=== PATIENT | male | born 1955 | race Caucasian/White ===

== ENCOUNTER 2024-04-11 14:11 | Emergency (ER) | payer MEDICARE, SELFPAY ==
--- NOTE | ~2024-04-11 | XR_ITS ---
EXAMINATION: XR chest 1V portable 04/11/2024 15:42 INDICATION: Fever and cough PROCEDURE: AP portable chest COMPARISON: No prior studies for comparison. FINDINGS: The lungs are clear. The cardiomediastinal silhouette is within normal limits. There are no pleural effusions. There is no pneumothorax suspected. Elevated right diaphragm. IMPRESSION: 1: NO ACUTE CARDIOPULMONARY DISEASE. Reviewed, dictated and finalized at location B.
--- NOTE | ~2024-04-11 | CT_ITS ---
[facility] DATE: 04/11/2024 16:17 INDICATION: low back pain, fever . TECHNIQUE: Computed tomography (CT) of the chest, abdomen, and pelvis and thoracic and lumbar spine w as performed with 100 mL Omnipaque-350 intravenous contrast. Automated exposure control and iterative reconstruction technique were employed. The dose-length product was 594.76 mGy-cm. COMPARISON: None FINDINGS: CHEST: Thoracic aorta: No significant dilation. No dissection. Mild arch calcification. Lung parenchyma and airways: Granulomatous calcifications. Dependent scarring/atelectasis. Lungs and airways are otherwise clear. Thoracic inlet, axillae and chest wall: No thyroid or soft tissue mass. No axillary lymphadenopathy. Mediastinum: No mass or lymphadenopathy. Calcified lymph nodes. Heart and pericardium: Normal heart size. No pericardial effusion. Coronary artery calcifications: Mild. Pleura: No effusion or mass. Thoracic bones: No acute osseous finding in the chest. ABDOMEN/PELVIS: Liver: Normal. Biliary/Gallbladder: Gallbladder is normal. No bile duct dilation. Pancreas: No mass or duct dilation. Spleen: Normal. Adrenals:No mass. Kidneys: No suspicious mass, obstructing stone, or hydronephrosis. Simple left midpole cyst. Bilatera l subcentimeter hypodensities, too small to characterize but most likely represent cysts. GI tract: No small or large bowel dilation. Normal appendix. Mesentery/Peritoneum: No ascites, mass, or free air. Retroperitoneum: No mass Atherosclerotic abdominal aortic and/or arterial calcifications. Pelvis: Pelvic organs are within normal limits Soft Tissues: Soft tissues and body wall unremarkable. Abdominopelvic bones: No acute osseous finding in the abdomen/pelvis. THORACIC SPINE: Trace anterolisthesis at T10-11. Vertebral body heights preserved. Multilevel mild disc space narrowi ng and marginal osteophytosis. Multilevel mild and moderate degrees of facet sclerosis and hypertroph y. No severe central canal or neural foraminal narrowing. LUMBAR SPINE: Moderate scoliosis. 5 nonrib-bearing lumbar-type vertebral bodies. Pedicles intact. Trace multilevel listheses. No pars defect. Multilevel moderate disc space narrowing and marginal osteophytosis. Sever e left neural foraminal narrowing at L3-4. Severe bilateral neural foraminal narrowing at L5-S1. Mode rate and severe lower lumbar facet sclerosis and hypertrophy. No severe central canal narrowing. IMPRESSION: No acute process detected in the chest, abdomen, or pelvis. No acute fracture or traumatic malalignment detected in the thoracic or lumbar spine. Moderate lumbar scoliosis. Multilevel mild thoracic and moderate lumbar degenerative disc disease. Mu ltilevel severe lumbar neural foraminal narrowing. Multilevel thoracic and lumbar facet arthropathy. Reviewed, dictated and finalized at location K. IMPRESSION: No acute process detected in the chest, abdomen, or pelvis. No acute fracture or traumatic malalignment detected in the thoracic or lumbar spine. Moderate lumbar scoliosis. Multilevel mild thoracic and moderate lumbar degener ative disc disease. Multilevel severe lumbar neural foraminal narrowing. Multil evel thoracic and lumbar facet arthropathy.
[2024-04-11 14:22] VITALS: BP 129/63; PULSE 103; RESP 19; TEMP 39.1; O2SAT 98
--- NOTE | 2024-04-11 14:57 | ED.BACK ---
HPI - Back Pain/Injury General Chief Complaint: Back Pain/Injury Stated Complaint: lower back and leg pain Time Seen by Provider: 04/11/24 14:34 Source: patient Mode of arrival: ambulatory Limitations: no limitations History of Present Illness HPI Narrative: This is a 68-year-old male who presents to the ED with chief complaint of lower back pain radiating into bilateral thighs for the past couple of months and worse today. Patient reports that the pain radiates from the belt line in the lower back down into the lateral and anterior thighs. States that he had an injury several months ago to his back but is unsure if this precipitated his pain. Endorses some general fatigue over the last couple days but no recorded fevers or nausea or vomiting. He also notes that he has been dealing with a cough and sinus infection for the past couple weeks as well. Denies bowel or bladder dysfunction or incontinence. Denies lower extremity numbness. Endorses a right foot drop that has been going on for several months. Denies chest pain, shortness of breath, headache, abdominal pain. Related Data Allergies Allergy/AdvReac Type Severity Reaction Status Date / Time No Known Allergies Allergy Verified 04/11/24 14:28 Review of Systems Review of Systems: All systems as dictated in HPI Exam Narrative: GENERAL: Well-appearing, well-nourished, and in no acute distress. HEAD: Normocephalic, atraumatic. EYES: PERRLA and EOMI. ENT: Nares clear, no rhinorrhea or epistaxis. Mucous membranes moist. Oropharynx without tonsillar hypertrophy exudate or other lesions. NECK: Supple. No adenopathy or masses. CHEST: No respiratory distress. Clear to auscultation. No wheezes rales or rhonchi HEART: Regular rate and rhythm. No murmur heard. Normal peripheral pulses. ABDOMEN: Soft, nontender, nondistended, normal active bowel sounds. MSK: Normal range of motion. No edema. 5/5 sensation throughout the lower extremities. 4-5 strength of the EHL on the right. 5/5 on the left. SKIN: Warm, dry, no rash. NEURO: Alert and oriented x4. No focal deficits. PSYCH: Normal mood and affect. Course Vital Signs Vital signs: Vital Signs Temperature 102.4 F H 04/11/24 14:22 Pulse Rate 103 H 04/11/24 14:22 Respiratory Rate 19 05/28/24 14:22 Blood Pressure 129/63 04/11/24 14:22 Pulse Oximetry 98 04/11/24 14:22 Oxygen Delivery Room Air 04/11/24 14:22 Temperature 102.4 F H 04/11/24 14:22 Pulse Rate 85 04/11/24 16:15 Respiratory Rate 18 04/11/24 16:15 Blood Pressure 136/77 04/11/24 16:15 Pulse Oximetry 95 04/11/24 16:15 Oxygen Delivery Room Air 04/11/24 14:22 MDM - Back Pain/Injury MDM Narrative Medical decision making narrative: This is a 68-year-old male who presents to the ED with chief complaint of bilateral lower back pain acute on chronic. Radiates to bilateral lower legs. Vitals show fever of 102? F. Very mildly tachycardic. Hemodynamically stable. Lab work shows mildly elevated white count of 11.5. CMP unremarkable. CRP very slightly elevated at 1.6. UA is remarkable only for high specific gravity indicating dehydration but no infection. Viral swabs show positive COVID test. Feel that the reason he is febrile today is most likely due to COVID. Did order CT imaging to rule out acute infection in the abdomen or spine, although he is low risk for spinal infection. Chest x-ray shows no acute findings. CT Chest abdomen pelvis with con: IMPRESSION: No acute process detected in the chest, abdomen, or pelvis. No acute fracture or traumatic malalignment detected in the thoracic or lumbar spine. Moderate lumbar scoliosis. Multilevel mild thoracic and moderate lumbar degenerative disc disease. Multilevel severe lumbar neural foraminal narrowing. Multilevel thoracic and lumbar facet arthropathy.. Patient has diffuse arthritic changes throughout the spine which is consistent with his presentation. Suspect trey
[2024-04-11] MEDS: MORPHINE SULFATE (*CRX) 4 MG/ML INJ IV PUSH (15:10)
[2024-04-11] MEDS: SODIUM CHLORIDE 0.9% IV 1,000 ML 999 ML IV CONT (15:11)
[2024-04-11 15:22] LABS: Basophils Percent Auto 0.3 % (0.2-1.2); Eosinophils Absolute Auto 0.1 K/mm3 (0-0.3); Eosinophils Percent Auto 0.7 % (0-4.4); Hematocrit 43.9 % (42.0-52.0); Hemoglobin 14.9 g/dL (14.0-18.0); Immature Granulocyte Absolute 0.03 K/mm3 (0.00-0.031); Immature Granulocyte Percent A 0.3 % (0-0.5); Mean Corpuscular HGB Conc 33.9 g/dl (32-36); Mean Corpuscular Hemoglobin 31.7 pg (26-34); Mean Corpuscular Volume 93.4 fl (80-100); Mean Platelet Volume 10.1 fl (7.4-10.4); Monocytes Absolute Auto 1.1 K/mm3 (0.1-0.6); Monocytes Percent Auto 9.8 % (2.6-8.5); Neutrophils Absolute Auto 9.4 K/mm3 (1.3-6.7); Neutrophils Percent Auto 81.9 % (45.5-73.1); Platelet Count Result 185 k/mm3 (150-375); White Blood Count 11.5 K/mm3 (4.5-10.0)
[2024-04-11] MEDS: ONDANSETRON INJ 4 MG/2 ML VIAL IV PUSH (15:24)
[2024-04-11 15:33] LABS: Alanine Aminotransferase 40 U/L (6-50); Albumin Level 4.8 g/dL (3.5-5.1); Alkaline Phosphatase 74 U/L (38-126); Anion Gap 9 mmol/L (4-12); Aspartate Amino Transferase 41 U/L (17-59); Bilirubin,Total 1.1 mg/dL (0.2-1.3); Blood Urea Nitrogen 18 mg/dL (9-20); Calcium 9.5 mg/dL (8.4-10.2); Carbon Dioxide 24 mmol/L (22-30); Chloride 103 mmol/L (98-107); Estimated CRCL calculation 80 ml/min; Estimated Glomerular Filt Rate > 60; Glucose 128 mg/dL (65-110); Potassium 3.9 mmol/L (3.4-5.0); Sodium 136 mmol/L (137-145)
[2024-04-11 15:34] LABS: Lactic Acid Reflex 1.5 mmol/L (0.7-2.0)
[2024-04-11 16:03] LABS: CRP 1.6 mg/dL (<1.0); Influenza A QL RT-PCR Negative (Negative); Influenza B QL RT-PCR Negative (Negative); RSV RNA, RT-PCR Negative (Negative); SARS-CoV-2 RNA PCR Positive (Negative)
[2024-04-11 16:15] VITALS: BP 136/77; PULSE 85; RESP 18; O2SAT 95
[2024-04-11 16:38] LABS: Appearance Urine Clear (Clear); Bilirubin Urine Negative (Negative); Blood Urine Negative (Negative); Color Urine Yellow (Yellow); Glucose Urine UA Negative (Negative); Ketones Urine Negative (Negative); Leukocyte Esterase Ur Negative LEU/UL (Negative); Nitrate Urine Negative (Negative); Protein Urine Negative (Negative); Urobilinogen Urine 0.2 mg/dL (<2.0); pH Urine 5.5 (5.0-9.0)
[2024-04-11 16:41] LABS: Add Urine Microscopic? NO; Specific Grav Ur 1.039 (1.001-1.035)
== END 2024-04-11 17:19 | disposition home or self-care (01) ==
PROVIDERS: Emergency Provider Physician Assistant
DX: M54.16 Radiculopathy, lumbar region (principal); U07.1 COVID-19
CPT/HCPCS: 36415; 71045; 71260; 72129; 72132; 74177; 80053; 81003; 83605; 85025; 86140; 87637; 96361; 96374; 96375; 99284; J2270; J2405; J7030; Q9967

== ENCOUNTER 2024-07-22 22:27 | Observation (INO) | payer MEDICARE, SELFPAY ==
--- NOTE | ~2024-07-22 | CT_ITS ---
CT ANGIOGRAM NECK AND HEAD History: Garbled speech, vertigo, TIA. Technique: Serial spiral axial images through the head and neck were obtained during arterial phase I V injection of 100 cc of Omnipaque 350. 3-D postprocessing and MIP images were then reconstructed on the remote workstation. Dose reduction technique was used on this scan by utilizing automated exposur e control and iterative reconstruction technique. The dose-length product (DLP) was 1002.58 mGy-cm. CTA neck findings: Bilateral vertebral arteries are patent. Bilateral common carotid, internal carot id, and external carotid arteries are patent. No large vessel occlusion or stenosis. No aneurysm. The proximal right internal carotid artery demonstrates 0% stenosis relative to the normal distal artery lumen diameter. The proximal left internal carotid artery demonstrates 0% stenosis relative to the n ormal distal artery lumen diameter. CTA head findings: Distal vertebral arteries, basilar artery, and posterior cerebral arteries are pat ent. Distal internal carotid arteries, middle cerebral arteries, and anterior cerebral arteries are p atent. No large vessel occlusion or stenosis. No definite aneurysm seen. Impression: No large vessel occlusion or stenosis. Reviewed, dictated and finalized at location M. Impression: No large vessel occlusion or stenosis.
--- NOTE | ~2024-07-22 | CT_ITS ---
Non-contrast Head CT History: Dizziness Technique: Axial non-contrast imaging of the brain was performed. Dose reduction technique was used on this scan by utilizing automated exposure control and iterative reconstruction technique. The dose -length product (DLP) was 605.33 mGy-cm. Findings: There is no evidence of intracranial hemorrhage, mass lesion, or acute infarct. Brain par enchyma appears normal. The ventricles and subarachnoid spaces are normal in size. The calvarium ap pears normal. The visualized paranasal sinuses and mastoid air cells are clear. Impression: No significant abnormality seen. Reviewed, dictated and finalized at location . Impression: No significant abnormality seen.
--- NOTE | 2024-07-22 22:30 | ECG_ITS ---
Test Date: 2024-07-22 22:48:16 Measurements Intervals [place] Rate: 65 P: 8 AL: 201 QRS: -48 QRSD: 98 T: 26 QT: 406 QTc: 423 Interpretive Statements SINUS RHYTHM BORDERLINE AV CONDUCTION DELAY LEFT ANTERIOR FASCICULAR BLOCK BASELINE ARTIFACT- I, III, AVR, AVL ABNORMAL ECG No previous ECG available for comparison Electronically Signed On 07-23-2024 08:39:33 CDT by Aneudy Mott D.O.
[2024-07-22 22:33] VITALS: BP 144/85; PULSE 70; RESP 20; TEMP 36.4; O2SAT 97
[2024-07-22 23:11] LABS: Alanine Aminotransferase 66 U/L (6-50); Albumin Level 4.7 g/dL (3.5-5.1); Alkaline Phosphatase 85 U/L (38-126); Anion Gap 13 mmol/L (4-12); Aspartate Amino Transferase 61 U/L (17-59); Bilirubin,Total 0.6 mg/dL (0.2-1.3); Blood Urea Nitrogen 17 mg/dL (9-20); Calcium 9.4 mg/dL (8.4-10.2); Carbon Dioxide 23 mmol/L (22-30); Chloride 104 mmol/L (98-107); Estimated CRCL calculation 80 ml/min; Estimated Glomerular Filt Rate > 60; Glucose 183 mg/dL (65-110); Potassium 4.2 mmol/L (3.4-5.0); Sodium 140 mmol/L (137-145)
[2024-07-22 23:19] LABS: Basophils Percent Auto 0.3 % (0.2-1.2); Eosinophils Absolute Auto 0.1 K/mm3 (0-0.3); Eosinophils Percent Auto 0.8 % (0-4.4); Hematocrit 46.7 % (42.0-52.0); Hemoglobin 15.8 g/dL (14.0-18.0); Immature Granulocyte Absolute 0.03 K/mm3 (0.00-0.031); Immature Granulocyte Percent A 0.3 % (0-0.5); Lymphocytes Absolute Auto 2.29 K/mm3 (0.9-3.2); Lymphocytes Percent Auto 22.2 % (18.3-44.2); Mean Corpuscular HGB Conc 33.8 g/dl (32-36); Mean Corpuscular Hemoglobin 31.7 pg (26-34); Mean Corpuscular Volume 93.6 fl (80-100); Mean Platelet Volume 10.3 fl (7.4-10.4); Monocytes Absolute Auto 0.9 K/mm3 (0.1-0.6); Monocytes Percent Auto 8.5 % (2.6-8.5); Neutrophils Percent Auto 67.9 % (45.5-73.1); Platelet Count Result 201 k/mm3 (150-375); Red Blood Count 4.99 M/mm3 (4.6-6.20); Red Cell Distribution Width 12.3 % (11.5-14.5); White Blood Count 10.3 K/mm3 (4.5-10.0)
[2024-07-22 23:29] LABS: INR 1.1
[2024-07-22 23:30] LABS: Partial Thromboplastin Time 24.9 Seconds (22.3-36.8)
[2024-07-23] VITALS (9 sets, daily range): BP systolic 125–156; BP diastolic 64–91; PULSE 63–74; RESP 14–20; TEMP 36.4–36.6; O2SAT 96–99; BMI 27.3
[2024-07-23 00:14] LABS: Add Urine Microscopic? YES; Appearance Urine Cloudy (Clear); Bacteria Urine None Seen /hpf; Bilirubin Urine Negative (Negative); Blood Urine Negative (Negative); Color Urine Dark Yellow (Yellow); Glucose Urine UA Negative (Negative); Ketones Urine Trace mg/dL (Negative); Leukocyte Esterase Ur Negative LEU/UL (Negative); Need Manual Microscopic Reviewed; Nitrate Urine Negative (Negative); Non Pathogenic Casts 0-2; Protein Urine Negative (Negative); Specific Grav Ur 1.027 (1.001-1.035); Squamous Epithelial Cell Urine None Seen /hpf (Few); WBC Urine 0-5 /hpf (0-3)
--- NOTE | 2024-07-23 04:04 | ED.DIZZY ---
HPI - Dizziness General Chief Complaint: Dizziness Stated Complaint: Dizzy, n/v, feel different. Time Seen by Provider: 07/23/24 03:00 History of Present Illness HPI Narrative: Patient is a 68-year-old male presenting with vertigo and confusion. Patient states that he was working outside today and was feeling fine until this afternoon when he started to feel a bit off. He took a nap and when he woke up around 9:00 p.m. he had garbled speech, vertigo, and he felt off balance. His is with him and states this lasted for 2-3 minutes. The symptoms had improved by the time he got to the ER. No focal numbness or weakness. No facial droop. Currently, he denies any complaints. Denies infectious symptoms recently. He complains of chronic pain but no new pain. Related Data Home Medications Medication Instructions Recorded Confirmed amlodipine 5 mg tablet 5 mg PO DAILY 07/23/24 07/23/24 atorvastatin 40 mg tablet 40 mg PO DAILY 07/23/24 07/23/24 gabapentin 300 mg capsule 300 mg PO TID 07/23/24 07/23/24 hydrocodone 5 mg-acetaminophen 325 1 tablet PO Q8H 07/23/24 07/23/24 mg tablet metformin 500 mg tablet 500 mg PO BID 07/23/24 07/23/24 Allergies Allergy/AdvReac Type Severity Reaction Status Date / Time No Known Allergies Allergy Verified 07/22/24 22:38 Review of Systems Review of Systems: All systems reviewed & are unremarkable except as noted in HPI and below PMFSH Social History Social History Smoking status: Former smoker Tobacco type: cigarettes Alcohol intake: former Substance use: former Substance use type: crack/cocaine, 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 EYES: PERRLA and EOMI. ENT: Grossly unremarkable NECK: Supple. CHEST: Clear to auscultation. No respiratory distress. HEART: Regular rate and rhythm ABDOMEN: Soft, nontender, nondistended EXTREMITIES: Normal range of motion SKIN: Warm, dry, no rash. NEURO: No focal deficits. Alert and oriented x3. 5/5 strength in all extremities, no sensory deficits, no aphasia or dysarthria, no pronator drift, [id number] intact PSYCH: Normal mood and affect. Course Vital Signs Vital signs: Vital Signs Temperature 97.6 F 07/22/24 22:33 Pulse Rate 70 07/22/24 22:33 Respiratory Rate 20 07/22/24 22:33 Blood Pressure 144/85 H 07/22/24 22:33 Pulse Oximetry 97 07/22/24 22:33 Oxygen Delivery Room Air 07/22/24 22:33 Temperature 97.8 F 07/23/24 21:25 Pulse Rate 55 L 07/24/24 04:00 Respiratory Rate 18 07/23/24 21:25 Blood Pressure 128/64 07/23/24 21:25 Pulse Oximetry 96 07/23/24 21:25 Oxygen Delivery Room Air 07/23/24 20:00 MDM - Dizziness MDM Narrative Medical decision making narrative: 68-year-old male presenting with an episode of garbled speech, vertigo, loss of balance. Vitals are stable. Exam remarkable for the above. CT brain shows no acute abnormalities. Blood work without significant abnormality. CTA has been ordered. Patient will require admission for TIA workup. States that he is supposed to be taking daily aspirin but he is unsure about his other medications. CTA without acute abnormalities. I spoke with neurology who agrees with admission for TIA workup. Patient is agreeable with this plan. I spoke with medicine was accepted him for admission. Differential Diagnosis Differential diagnosis: Likely cerebrovascular accident, transient cerebral ischem
--- NOTE | 2024-07-23 08:38 | PC.NURSE ---
This patient, Edilberto Hawley, was admitted to Medical Room 245-. Patient/family oriented to hospital policies and general routines including ID bracelet, bed and alarms, visiting hours, pain management, procedures, bathroom and other care routines, personal items, smoking policy, room service/diet, and visiting hours. Information on how to activate the Rapid Response Team has been discussed. Patient/Family are encouraged to report perceived risks to care and to ask questions if they do not understand what they are told or what they should do.
--- NOTE | 2024-07-23 08:44 | PM.IMHP ---
H&P: HPI History of Present Illness Date/Time: 07/23/24 08:44 Chief Complaint: vertigo /speech abnormality /ataxia Narrative: Patient is a 68-year-old male presenting with vertigo and confusion. Patient states that he was working outside today and was feeling fine until this afternoon when he started to feel a bit off. He took a nap and when he woke up around 9:00 p.m. he had garbled speech, vertigo, and he felt off balance. His is with him and states this lasted for 2-3 minutes. The symptoms had improved by the time he got to the ER. No focal numbness or weakness. No facial droop. Currently, he denies any complaints. Denies infectious symptoms recently. He complains of chronic pain but no new pain. Review of Systems Review of Systems: - CONSTITUTIONAL: Denies weight loss, fever and chills. - HEENT: Denies changes in vision and hearing - RESPIRATORY: Denies SOB and cough. - CV: Denies palpitations and CP. - GI: Denies abdominal pain, nausea, vomiting and diarrhea. - : Denies dysuria and urinary frequency. - MSK: Denies myalgia and joint pain. - SKIN: Denies rash and pruritus. - NEUROLOGICAL: Denies headache and syncope. see HPI - PSYCHIATRIC: Denies recent changes in mood. Denies anxiety and depression. [facility] Social History Social History Smoking status: Former smoker Tobacco type: cigarettes Alcohol intake: former Substance use: former Substance use type: crack/cocaine, 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 use: 2002 Do You Feel Safe in your Home?: Yes Lack of Transportation: No Lack of Food: Never True Current Housing: I Have Housing Concerned About Future Housing: No Difficulty Paying Gas/Electric Bills: No Difficulty Paying for Meds: No Currently Unemployed: No Education: Decline to Answer Difficulty w/ Childcare or Family Care: No Spiritual care concerns: No Meds Home Medications and Allergies Home Medications Medication Instructions Recorded Confirmed Type Unable to Obtain Home Medications 07/23/24 07/23/24 History Allergies Allergy/AdvReac Type Severity Reaction Status Date / Time No Known Allergies Allergy Verified 07/22/24 22:38 Vital Signs Vital Signs - 24 hr 07/22/24 22:33 07/23/24 01:33 07/23/24 04:57 Temperature 97.6 F Pulse Rate 70 64 64 Respiratory Rate 20 15 15 Blood Pressure 144/85 H 138/86 138/74 Pulse Oximetry 97 97 97 Oxygen Delivery Room Air 07/23/24 07:54 Temperature Pulse Rate 67 Respiratory Rate 14 Blood Pressure 154/89 H Pulse Oximetry 97 Oxygen Delivery Exam Narrative: GENERAL: Nontoxic, no acute distress, pleasant cooperative HEAD: Normocephalic, atraumatic. EYES: PERRLA and EOMI. CHEST: Clear to auscultation. No respiratory distress. HEART: Regular rate and rhythm ABDOMEN: Soft, nontender, nondistended EXTREMITIES: Normal range of motion SKIN: Warm, dry, no rash. NEURO: No focal deficits. Alert and oriented x3. 5/5 strength in all extremities, no sensory deficits, no aphasia or dysarthria, no pronator drift, [id number] intact PSYCH: Normal mood and affect. H&P: Results Labs Labs: Short CBC 07/22/24 Range/Units 22:54 WBC 10.3 H (4.5-10.0) K/mm3 Hgb 15.8 (14.0-18.0) g/dL Hct 46.7 (42.0-52.0) % Plt Count 201 (150-375) k/mm3 BMP 07/22/24 22:54 Sodium 140 Potassium 4.2 Chloride 104 Carbon Dioxide 23 BUN 17 Creatinine 0.80 Glucose 183 H Calcium 9.4 Liver Function 07/22/24 Range/Units 22:54 Total Bilirubin 0.6 (0.2-1.3) mg/dL AST 61 H (17-59) U/L ALT 66 H (6-50) U/L Alkaline Phosphatase 85 (38-126) U/L Albumin 4.7 (3.5-5.1) g/dL Urine 07/22/24 Range/Units 23:49 Urine Color Dark yellow (Yellow) Urine Appearance Cloudy H (Clear) Urine pH 5.0 (5.0-9.0) Ur Specific [place] 1.027 (1.001-1.035) Urine Protein Negat
--- NOTE | 2024-07-23 08:54 | PC.NURSE ---
RN did admission with the pt and was unable to obtain medication list because he didn't know what he took pt states my will be here later she knows what I take.
[2024-07-23] MEDS: ASPIRIN 81 MG ENTERIC TABLET PO (11:46)
[2024-07-23 12:54] LABS: Glucose Point of Care 120 mg/dl (65-105)
--- NOTE | 2024-07-23 14:36 | WPDNEURCNPN ---
Assessment and Plan Assessment and plan (1) TIA (transient ischemic attack): Code(s): G45.9 - Transient cerebral ischemic attack, unspecified Status: Acute Plan Fairly nonfocal neurological examination at this particular time, has been admitted because of the possibility of TIA, CTA is negative, echocardiogram will be obtained to rule out the possibility of intracardiac pathology patient is already receiving aspirin 81mg daily will be continued as such till the echocardiogram is done. Consult date: 07/23/24 HPI: Edilberto Hawley is a 68 year old male Admitted to the hospital for the complaints of feeling different and dizzy reportedly he was working outside and was feeling fine up until the afternoon when he started to feel a bit of he took a nap and when he woke up around 9:00 p.m. he noted his speech was garbled he was feeling vertiginous and was off the balance the whole episode lasted for 2 to 3 minutes. And symptomatology improved by the time he came to the emergency room. There was no history of focal weakness or numbness of 1 or other upper or lower extremity and also no history of facial droop. He is not allergic to any medication. Initial exam in the emergency room revealed him to have no focal neurological deficit, his vital signs were normal CBC was normal BMP was normal except blood sugar being 183 and ureter was normal too, head neck CTA revealed no involvement of the major vessels and the CT scan of the brain normal. Review of Systems Review of Systems: All systems reviewed & are unremarkable except as noted in HPI and below [facility] Social History Social History Smoking status: Former smoker Tobacco type: cigarettes Alcohol intake: former Substance use: former Substance use type: crack/cocaine, 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 use: 2002 Do You Feel Safe in your Home?: Yes Lack of Transportation: No Lack of Food: Never True Current Housing: I Have Housing Concerned About Future Housing: No Difficulty Paying Gas/Electric Bills: No Difficulty Paying for Meds: No Currently Unemployed: No Education: Decline to Answer Difficulty w/ Childcare or Family Care: No Spiritual care concerns: No Meds Home Medications and Allergies Home Medications Medication Instructions Recorded Confirmed Type Unable to Obtain Home Medications 07/23/24 07/23/24 History Allergies Allergy/AdvReac Type Severity Reaction Status Date / Time No Known Allergies Allergy Verified 09/07/24 22:38 Vital Signs Vital Signs - 24 hr 07/22/24 22:33 07/23/24 01:33 07/23/24 04:57 Temperature 36.4 C Pulse Rate 70 64 64 Respiratory Rate 20 15 15 Blood Pressure 144/85 H 138/86 138/74 Pulse Oximetry 97 97 97 Oxygen Delivery Room Air 07/23/24 07:54 07/23/24 10:34 07/23/24 08:30 Temperature 36.4 C L Pulse Rate 67 63 Respiratory Rate 14 20 Blood Pressure 154/89 H 125/91 H Pulse Oximetry 97 97 Oxygen Delivery Room Air Exam Narrative: Exam today revealed him to be awake alert cooperative in no obvious acute distress, extremely verbal and giving the full account of his illness and family history without any evidence of dysphagia dysarthria or dysphonia. Head normocephalic with no bruit, ear nose throat examination normal, neck supple with no cervical bruit no thyromegaly no lymphadenopathy, heart regular with no murmur, lungs clear to auscultation, abdomen soft nontender, neurological examination revealed him to be awake alert oriented x3, his speech nor dysphasic not dysarthric not dysphonic, pupils round regular reacting to light equally, feels the vision full, extraocular movements full with no nystagmus, facial sensation intact, face symmetrical, tongue midline uvula midline and motor examination revealed him to have no drift of 1 or other side with normal tone in both upper and lower extremities deep tendon reflexes symmetri
[2024-07-23 17:50] LABS: Glucose Point of Care 108 mg/dl (65-105)
[2024-07-24] VITALS: PULSE 60
[2024-07-24 04:00] VITALS: PULSE 55
--- NOTE | 2024-07-24 05:31 | PC.NURSE ---
Patient alert and oriented at bedside. Patient agitated and wishing to leave, patient took off his heart monitor and stated that he did not want his blood drawn and that he did not get his pain medication. I attempted to speak with patient and explained that I could call the Doctor about his pain but patient stated no he just wanted to leave. I attempted to talk with patient about reason for blood work and that we could call the MD but patient stated no he was leaving. Dr Stinson aware of patient wanting to leave. Patient signed AMA paper work and IV was removed. Patient encouraged to follow up with his MD.
--- NOTE | 2024-07-24 05:37 | PC.NURSE ---
This RN was called to the pt's room by the laborer [employer]. Pt stating he has had an IV in for 2.5 years and that he has had blood drawn from it and stuff put in it. This RN advised the pt that was not an IV and was possibly a central line of some sort. Pt's was adding to the pt's comments and encouraging his behavior. Pt began becoming verbally irritated with RN and Business Performance Advisor stating he want the IV out then. This RN educated the pt that he has to have IV access while in the hospital. Pt's began arguing that he did not need it because it was not being used. Pt then stated he did not want labs drawn and he was leaving. Pt was very axious and ripped the leads for his quality assurance monitor off. CN overheard and printed AMA document. This RN called Dr Stinson and adivsed her of the situation.
--- NOTE | 2024-07-24 08:09 | PM.DS ---
DS: Admitting Diagnosis Discharge Date 07/24/24 Admitting Diagnosis Stroke-like symptoms DS: Discharge Diagnosis Discharge Diagnosis (1) TIA (transient ischemic attack): Code(s): G45.9 - Transient cerebral ischemic attack, unspecified Status: Acute (2) Hypertension: Code(s): I10 - Essential (primary) hypertension Status: Acute (3) Pre-diabetes: Code(s): R73.03 - Prediabetes Status: Acute DS: Summary Hospital Course Hospital Course: Patient is a 68-year-old male presenting with vertigo and confusion. Patient states that he was working outside yesterday and was feeling fine until later afternoon when he started to feel a bit off. He took a nap and when he woke up around 9:00 p.m. he had garbled speech, vertigo, and he felt off balance. His is with him and states this lasted for 2-3 minutes. The symptoms had improved by the time he got to the ER. No focal numbness or weakness. No facial droop. he has chronic pain. in the ED evaluation His vitals were stable. Laboratory workup with WBC of 10.3 hemoglobin 15.8 came panel was unremarkable except for blood sugar 183. Urinalysis with 3-5 RBC otherwise unremarkable. EKG with normal sinus rhythm with nonspecific ST-T changes. CT head without contrast was obtained which was unremarkable. Followed by CTA head and neck which ruled out large vessel occlusion. Neurology has been consulted. Will obtain MRI brain. Continue on aspirin and statin. Check lipid profile and A1c. will also get echocardiogram for TIA workup. Monitor on telemetry . PT OT to see however patient left against medical advise. Hypertension History of TIAs in the past Diabetes supposed to be on medications. Check A1c DVT prophylaxis Lovenox Code status full code Time Spent with Patient Time attestation: Total time spent providing and/or coordinating discharge services: DS: Data Data Completed and Pending Labs on day of discharge: Labs from last 24 hours 07/23/24 07/23/24 07/23/24 17:01 12:50 09:00 POC Capillary Glucose 108 H 120 H Hemoglobin A1c Pending Triglycerides Pending Cholesterol Pending LDL Cholesterol Direct Pending HDL Direct Pending Imaging Radiologist's impression: ITS Impressions Head/Neck CTA 07/23/24 07:06 Impression: No large vessel occlusion or stenosis. Head CT 07/23/24 07:09 Impression: No significant abnormality seen. Discharge Plan Discharge Consulting providers: Lefty Correa Patient Disposition: Left Against Medical Advice Discharge Medications: No Action atorvastatin 40 mg Tablet 40 mg PO DAILY metformin 500 mg Tablet 500 mg PO BID hydrocodone-acetaminophen [[place]] 5-325 mg Tablet 1 tablet PO Q8H amlodipine 5 mg Tablet 5 mg PO DAILY gabapentin 300 mg Capsule 300 mg PO TID Patient Comments: pt states he only takes in the morning Date of admission: 07/23/24 07:46 Primary Care Provider: UNKNOWN,DOCTOR Admitting Provider: Alen Olmedo Attending physician on admission: Alen Olmedo
== END 2024-07-24 05:35 | disposition left against medical advice (07) ==
LOC: ANHED 07-23 03:11 → ANH2MED 07-23 08:24
PROVIDERS: Admitting Provider Internal Medicine; Emergency Provider Emergency Medicine; Visit Provider Internal Medicine
DX: G45.9 Transient cerebral ischemic attack, unspecified (principal); I10 Essential (primary) hypertension; R73.03 Prediabetes; Z87.891 Personal history of nicotine dependence
CPT/HCPCS: 36415; 70450; 70496; 70498; 80053; 80061; 81001; 82948; 83036; 85025; 85610; 85730; 93005; 97161; 99285; A9270; G0378; Q9967

== ENCOUNTER 2024-11-16 06:04 | Emergency (ER) | payer MEDICARE, SELFPAY ==
--- NOTE | ~2024-11-16 | XR_ITS ---
XR knee RT min 4V 11/16/2024 08:33 Indication: Right knee injury. Procedure: 4 views right knee Comparison: No prior studies for comparison. Findings: There is an ossific density medial to the femoral condyle consistent with medial collateral injury with avulsion, age indeterminate. Mild osteoarthritis. Moderate joint effusion. No focal lyti c or blastic lesions. Impression: 1: Avulsion fracture medial to the distal aspect of the femur consistent with medial collateral ligam ent injury, age indeterminate. 2: Moderate joint effusion. 3: Mild osteoarthritis. Reviewed, dictated and finalized at location [facility] [employer] Impression: 1: Avulsion fracture medial to the distal aspect of the femur consistent with m edial collateral ligament injury, age indeterminate. 2: Moderate joint effusion. 3: Mild osteoarthritis.
[2024-11-16 06:09] VITALS: BP 133/83; PULSE 61; RESP 18; TEMP 37.1; O2SAT 99
--- NOTE | 2024-11-16 08:49 | ED_ITS ---
HPI - Extremity Injury (Lower) General Chief Complaint: Extremity Injury, Lower Stated Complaint: right knee pain Time Seen by Provider: 11/16/24 08:11 Source: patient Mode of arrival: ambulatory Limitations: no limitations History of Present Illness HPI Narrative: Patient presents with right knee pain. He states he was walking down an incline when it acutely felt like I broke my leg. He has since had difficulty bearing weight. He describes the pain as sharp and intermittently radiating throughout his entire leg. He has chronic knee and leg pain as well as back pain but this felt worse. He states at baseline his primary care physician carlota Roach prescribes him 5 mg tablets of Oxy t.i.d.. He has an appointment next see this provider on Wednesday for a refill. The pain starts superior to the knee and radi ates laterally and medially across the joint as well as inferior to the knee. He denies any paresthesias. He does not believe he is on any anticoagulation. He moves his body a lot for work, bending/crouching and on his knees as well as walking. He has a history of complicated cellulitis as well as multiple musculoskeletal injuries. He had 3 operations on his right ankle for a bone infection including requiring skin graft (the first 2 in [facility] and then one in [place], [place]). Patient [place] but spends time here for work. He already has an appointment to establish with an orthopedic surgeon elsewhere on 12/15/2024. Related Data Home Medications ?Medication ?Instructions ?Recorded ?Confirmed ?Last Taken ?Type amlodipine 5 mg tablet 5 mg PO DAILY 07/23/24 07/23/24 Unknown History atorvastatin 40 mg tablet 40 mg PO DAILY 07/23/24 07/23/24 Unknown History gabapentin 300 mg capsule 300 mg PO TID 07/23/24 07/23/24 Unknown History hydrocodone 5 mg-acetaminophen 325 1 tablet PO Q8H 07/23/24 07/23/24 Unknown History mg tablet metformin 500 mg tablet 500 mg PO BID 07/23/24 07/23/24 Unknown History Allergies Allergy/AdvReac Type Severity Reaction Status Date / Time No Known Allergies Allergy Verified 11/16/24 07:19 [facility] Past Medical History Medical History (Updated 11/17/24 @ 06:41 by Jesica Beltran MD) Osteomyelitis of ankle R Chronic back pain Chronic pain of right lower extremity Chronic pain of right knee History of cellulitis Surgical History Surgical History History of skin graft RLE History of ankle surgery Right x3 ([place] x2; [place] x1) Social History Social History Smoking status: Former smoker Tobacco type: cigarettes Alcohol intake: former Substance use: former Substance use type: crack/cocaine, 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 use: 2002 Do You Feel Safe in your Home?: Yes Lack of Transportation: No Lack of Food: Never True Current Housing: I Have Housing Concerned About Future Housing: No Difficulty Paying Gas/Electric Bills: No Difficulty Paying for Meds: No Currently Unemployed: No Education: Decline to Answer Difficulty w/ Childcare or Family Care: No Additional living arrangements comments: Resides in [facility] near [facility] Occupation/Education: occupation Additional occupation/education comments: works in [employer] Spiritual care concerns: No Exam Narrative: GENERAL: well-nourished, and in no acute distress. HEAD: Normocephalic, atraumatic. EYES: Non injected, non icteric ENT: Nares clear, no rhinorrhea or epistaxis. NECK: Supple. CHEST: Speaking in full sentences. No respiratory distress. HEART: Regular rate and rhythm. . ABDOMEN: Soft, nondistended. EXTREMITIES: Mild tenderness to palpation along medial aspect of distal femur. Patient does have a significant right knee joint effusion without overlying erythema. Compartments are soft and nontender. Bony deformity at the right ankle which patient states is chronic. Overlying well-healing scar tissue. Able to demonstrate extension and flexions at the right knee. SKIN: Warm, dry. Patient has a scar on his right thigh from previous healing skin graft. NEURO: No focal deficits. Alert and oriented x3. PSYCH: Normal mood and affect. Very pleasant. Course Vital Signs Vital signs: Vital Signs Temperature 98.8 F 11/16/24 06:09 Pulse Rate 61 11/16/24 06:09 Respiratory Rate 18 11/16/24 06:09 Blood Pressure 133/83 11/16/24 06:09 Pulse Oximetry 99 11/16/24 06:09 Oxygen Delivery Room Air 11/16/24 06:09 Temperature 98.8 F 11/16/24 06:09 Pulse Rate 61 11/16/24 06:09 Respiratory Rate 18 11/16/24 06:09 Blood Pressure 133/83 11/16/24 06:09 Pulse Oximetry 99 11/16/24 06:09 Oxygen Delivery Room Air 11/16/24 06:09 MDM - Extremity Injury (Lower) MDM Narrative Medical decision making narrative: Patient presents with acute onset right knee pain while walking down an incline. He has a history of chronic knee and leg pain but this was worse. In the emergency department they are afebrile with vital signs within normal alvarez its Imaging showing distal avulsion fracture of the right femur likely secondary to MCL injury. Patient is otherwise neurovascularly intact. Prescription Monitoring Program is reviewed and shows that in June 2024 patient filled 42 tablets of Oxy-325 acetaminophen tablets and in July 2024 filled 60 tablets of [place] -325 mg acetaminophen tablets with no interval fill. Patient discharged home in stable condition after knee immobilizer applied and crutches given. Patient is given analgesic medication in the emergency department and discharged with prescriptions for both [id number] as well as narcotic medications. Did inform on narcotic safety given he is chronically on opiates. Patient is provided referral/contact information for on-call orthopedic surgeon. He does not reside in this area but does work in this area. He states he already has an appointment to establish with a different orthopedic surgeon elsewhere on December 15, 2024 for his other orthopedic injuries/issues. He is provided a disc with his images. Imaging Data Radiologist's impression: Impressions Knee X-Ray 11/16/24 08:49 Impression: 1: Avulsion fracture medial to the distal aspect of the femur consistent with medial collateral ligament injury, age indeterminate. 2: Moderate joint effusion. 3: Mild osteoarthritis. Discharge Plan Discharge Clinical Impression: Acute pain of right knee, Fracture of distal end of femur, Injury of medial collateral ligament of right knee, Effusion of knee joint right, Osteoarthritis of right knee Patient Disposition: Home, Self-Care Condition: Stable Instructions: Antibiotic Form, Crutch Instructions (ED), Osteoarthritis (ED), Swollen Knee Joint (ED), Knee Pain (ED), Opioid Safety (ED), Knee Immobilizer (ED), Avulsion Fracture (ED) Additional Instructions: It is safe to take a maximum of 4000 mg per day acetaminophen, this is typically done as two 500 mg tablets. Check to see if the oxy you currently take already contains acetaminophen (sometimes there are 325mg in each tablet) so that you do not accidentally overdose. If needed, You are being prescribed a short course of additional Oxy that you can use in the interim for breakthrough pain but do not combine the two narcotics you are prescribed. Acetaminophen/Tylenol is also safe to take with NSAIDs (ibuprofen/Motrin) for pain relief. Follow-up with the orthopedic surgeon listed below who or, alternatively, you can see the orthopedic surgeon of your choice either in this area where you work or closer to where you live. You are being provided a disc your images. Return to the emergency department with any new or worsening symptoms. Patient Language: Pakistani Prescriptions: New acetaminophen 500 mg capsule 1,000 mg PO Q6H PRN (Reason: pain) Qty: 30 0RF ibuprofen 600 mg tablet 600 mg PO TID PRN (Reason: pain) Qty: 30 0RF oxycodone 10 mg tablet 10 mg PO Q6H PRN (Reason: pain) Qty: 20 0RF No Action atorvastatin 40 mg Tablet 40 mg PO DAILY metformin 500 mg Tablet 500 mg PO BID hydrocodone-acetaminophen [[place]] 5-325 mg Tablet 1 tablet PO Q8H amlodipine 5 mg Tablet 5 mg PO DAILY gabapentin 300 mg Capsule 300 mg PO TID Patient Comments: pt states he only takes in the morning Follow-up/Referrals: Brandon Ogden MD [Physician] - (Orthopedics) UNKNOWN,DOCTOR [Primary Care Provider] - Stand Alone Forms: Work/School Release IP Time of Disposition: 10:18
[2024-11-16] MEDS: HYDROcodone/acetaminophen (*CRX) 5-325 MG TABLET 1 TAB PO (09:12)
[2024-11-16] MEDS: KETOROLAC 30 MG/ML VIAL (*BKC) 15 MG IM (09:54)
--- OUTSIDE RECORDS SUMMARY | 2024-11-23 00:06 | XMS_ITS | Continuity of Care Document ---
Author Organization [facility] Address [address] [facility] [address] [place] [address] Care Team Providers Care Skip Tracer Name Role Phone Carlos Enrique Obando Primary Care Physician [phone] Encounter Date(s): 04/19/24 - 04/19/24 Family Medicine [facility] [address] [place] [address]- Discharge Disposition: Discharged to Home or Self Care Allergies, Adverse Reactions, Alerts No Known Allergies Immunizations Given and Recorded Vaccine Date Status Refusal Reason influenza virus vaccine, inactivated 08/23/20 Chin rded influenza virus vaccine, inactivated 09/15/18 Give n influenza virus vaccine, inactivated 08/09/17 Chin rded tetanus/diphth/pertuss (Tdap) adult/adol 04/16/17 Recorded Medications Acidophilus Probiotic Blend 1 tab, Oral, Daily, 0 Refill(s), Start Date: 09/12/18 9:46:00 AM CDT Start Date: 09/12/18 Status: Ordered amitriptyline 75 mg oral tablet 1 tab(s), Oral, HS, # 30 tab(s), 0 Refill(s), Start Date: 03/09/23 10:50:00 AM CDT, Pharmacy: [facility], 173, cm, 03/09/23 10:20:00 CDT, Height/Length Measured, 89.5, kg, 03/09/23 10:22:00 CDT, Weight Dosing Start Date: 03/09/23 Stop Date: 04/22/23 Status: Completed amitriptyline 75 mg oral tablet 1 tab(s), Oral, HS, # 90 tab(s), 2 Refill(s), Start Date: 04/22/23 10:25:00 AM CDT, Pharmacy: [facility], 173, cm, 04/09/23 15:48:00 CDT, Height/Length Measured, 87.6, kg, 04/09/23 15:50:00 CDT, Weight Dosing Start Date: 04/22/23 Stop Date: 03/31/24 Status: Completed amitriptyline 75 mg oral tablet 1 tab(s), Oral, HS, 0 Refill(s), Start Date: 05/15/18 10:18:00 PM CDT Start Date: 05/15/18 Stop Date: 03/09/23 Status: Discontinued amitriptyline 75 mg oral tablet tab(s), Oral, HS, 0 Refill(s), Start Date: 05/15/18 11:15:00 PM CDT Start Date: 05/15/18 Stop Date: 09/12/18 Status: Discontinued amLODIPine 10 mg oral tablet 1 tab(s), Oral, Daily, # 30 tab(s), 0 Refill(s), Start Date: 03/31/24 10:44:00 AM CDT Start Date: 03/31/24 Status: Ordered amLODIPine 5 mg oral tablet 1 tab(s), Oral, Daily, # 90 tab(s), 1 Refill(s), Start Date: 03/09/23 10:48:00 AM CDT, Pharmacy: [facility], 173, cm, 03/09/23 10:20:00 CDT, Height/Length Measured, 89.5, kg, 03/09/23 10:22:00 CDT, Weight Dosing Start Date: 03/09/23 Stop Date: 08/27/23 Status: Completed amLODIPine 5 mg oral tablet 1 tab(s), Oral, Daily, # 90 tab(s), 3 Refill(s), Start Date: 08/27/23 8:41:00 AM CDT, Pharmacy: [facility], 173, cm, 04/09/23 15:48:00 CDT, Height/Length Measured, 87.6, kg, 04/09/23 15:50:00 CDT, Weight Dosing Start Date: 08/27/23 Stop Date: 03/31/24 Status: Completed aspirin 81 mg oral delayed release tablet 1 tab(s), Oral, Daily, # 30 tab(s), 0 Refill(s), Start Date: 03/09/23 10:18:00 AM CDT Start Date: 03/09/23 Status: Ordered atorvastatin 20 mg oral tablet 1 tab(s), Oral, Daily, # 30 tab(s), 0 Refill(s), Start Date: 03/31/24 10:45:00 AM CDT Start Date: 03/31/24 Status: Ordered baclofen 10 mg oral tablet 1 tab(s), Oral, TID, # 30 tab(s), 0 Refill(s), Start Date: 03/09/23 10:49:00 AM CDT, Pharmacy: [facility], 173, cm, 03/09/23 10:20:00 CDT, Height/Length Measured, 89.5, kg, 03/09/23 10:22:00 CDT,Weight Dosing Start Date: 03/09/23 Stop Date: 04/22/23 Status: Completed baclofen 10 mg oral tablet 1 tab(s), Oral, TID, # 30 tab(s), 1 Refill(s), Start Date: 04/22/23 11:37:00 AM CDT, [facility], [facility], cm, 04/09/23 15:48:00 CDT, Height/Length Measured, 87.6, kg, 04/09/23 15:50:00 CDT, Weight Dosing Start Date: 04/22/23 Stop Date: 03/31/24 Status: Completed baclofen 10 mg oral tablet 0 Refill(s), Start Date: 11/18/22 1:27:00 PM RETAIL BRANCH MANAGER Start Date: 11/18/22 Stop Date: 03/09/23 Status: Discontinued baclofen 10 mg oral tablet 1 tab(s), Oral, TID, PRN PRN for pain, 0 Refill(s), Start Date: 05/15/18 11:15:00 PM CDT Start Date: 05/15/18 Stop Date: 06/16/19 Status: Completed baclofen 10 mg tablet baclofen 10 mg tablet, 1 tab(s), Oral, TID, # 30 tab(s), 2 Refill(s), Pharmacy: [facility], 173, cm, 04/09/23 15:48:00 CDT, Height/Length Measured, 87.6, kg, 04/09/23 15:50:00 CDT, Weight Dosing Start Date: 06/08/23 Stop Date: 03/31/24 Status: Completed baclofen 10 mg tablet baclofen 10 mg tablet, 1 tab(s), Oral, TID, # 30 tab(s), 2 Refill(s), Pharmacy: [facility], 173, cm, 04/09/23 15:48:00 CDT, Height/Length Measured, 87.6, kg, 04/09/23 15:50:00 CDT, Weight Dosing Start Date: 06/18/23 Stop Date: 03/31/24 Status: Completed cephalexin 500 mg oral capsule 1 cap(s), Oral, QID, 0 Refill(s), Start Date: 09/09/18 7:56:00 AM CDT Start Date: 09/09/18 Stop Date: 09/12/18 Status: Discontinued ciprofloxacin 750 mg oral tablet 1 tab(s), Oral, q12hr, 2h away from dairy, # 20 tab(s), 0 Refill(s), Start Date: 11/09/18 6:34:00 PM RETAIL BRANCH MANAGER, Pharmacy: [facility] Start Date: 11/09/18 Stop Date: 12/16/18 Status: Completed ciprofloxacin 750 mg oral tablet 1 tab(s), Oral, q12hr, 2h away from dairy, X 14 days, # 28 tab(s), 2 Refill(s), Start Date: :21:00 PM RETAIL BRANCH MANAGER, Pharmacy: [facility] Start Date: 09/19/18 Stop Date: 11/09/18 Status: Completed clindamycin 150 mg oral capsule 1 cap(s), Oral, q6hr, 0 Refill(s), Start Date: 09/09/18 7:56:00 AM CDT Start Date: 09/09/18 Stop Date: 09/12/18 Status: Discontinued diclofenac 1% topical gel 1 marianna, Topical, QID, 0 Refill(s), Start Date: 09/09/18 7:57:00 AM CDT Start Date: 09/09/18 Stop Date: 03/31/24 Status: Completed diclofenac sodium 25 mg oral delayed release tablet 1 tab(s), Oral, TID, 0 Refill(s), Start Date: 03/31/24 10:43:00 AM CDT Start Date: 03/31/24 Status: Ordered DME - Hypafix Tape 2 X10 yards See Instructions, Ulcer right 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 daily 3 months, # 1 EA, 0 Refill(s), 05/05/19 9:20:00 AM CDT, Supply Start Date: 05/05/19 Status: Ordered DME - Hypafix Tape 2 X10 yards See Instructions, Ulcer right 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 daily 3 months, # 1 EA, 0 Refill(s), 03/08/19 4:00:00 PM CDT, Supply Start Date: 03/08/19 Status: Ordered DME - Mepilex Border 4X4 See Instructions, Diagnosis Code: Length of Need:, # 1 EA, 0 Refill(s), 05/22/18 10:00:00 AM CDT, Supply Start Date: 05/22/18 Stop Date: 09/09/18 Status: Completed DME - Optifoam Gentle 4 x4 See Instructions, Ulcer right 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 daily 3 months, # 1 boxes, 0 Refill(s), 05/05/19 9:20:00 AM CDT, Supply Start Date: 05/05/19 Stop Date: 06/16/19 Status: Completed DME - Optifoam Gentle 4 x4 See Instructions, Ulcer right 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 daily 3 months, # 1 package, 0 Refill(s), 03/08/19 4:00:00 PM CDT, Supply Start Date: 03/08/19 Stop Date: 06/16/19 Status: Completed DME - Optifoam Gentle 4 x4 See Instructions, Ulcer right 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 daily 3 months 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 [employer]NER, # 1 boxes, 0 Refill(s), 03/16/19 6:45:00 PM CDT, Supply Start Date: 03/16/19 Status: Ordered DME - Claudette Matrix 28cm 4.34 sq. inch See Instructions, Diagnosis Code: ULCER Length of Need:3 MONTHS Right lateral 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 drainage change every other day.gave 6 pieces from our stock please replace, # 1 EA, 0 Refill(s), 06/16/19 9:48:00 AM CDT, Supply Start Date: 06/16/19 Status: Ordered DME - Walker Standard with wheels 1 EA, N/A, 05/17/18, Criteria in Order Comments Met?, dx weakness R53.1 length of time 3 months, # 1 EA, 0 Refill(s), 05/17/18 3:25:00 PM CDT, Supply Start Date: 05/17/18 Stop Date: 09/09/18 Status: Completed DULoxetine 60 mg oral delayed release capsule 1 cap(s), Oral, Daily, 0 Refill(s), Start Date: 05/15/18 11:16:00 PM CDT Start Date: 05/15/18 Stop Date: 09/30/22 Status: Completed finasteride 5 mg oral tablet 1 tab(s), Oral, Daily, # 90 tab(s), 3 Refill(s), Start Date: 12/20/18 1:37:00 PM RETAIL BRANCH MANAGER, Pharmacy: [facility] Start Date: 12/20/18 Stop Date: 09/30/22 Status: Completed finasteride 5 mg oral tablet 1 tab(s), Oral, Daily, # 30 tab(s), 0 Refill(s), Start Date: 03/31/24 10:43:00 AM CDT Start Date: 03/31/24 Status: Ordered fluticasone 50 mcg/inh nasal spray 2 spray(s), Nasal, BID, X 42 days, # 16 gm, 11 Refill(s), Start Date: 04/03/24 11:55:00 AM CDT, Pharmacy: [facility], 173, cm, 03/31/24 10:46:00 CDT, Height/Length Measured, 88.2, kg, 03/31/24 10:51:00 CDT, Weight Dosing Start Date: 04/03/24 Stop Date: 04/19/24 Status: Completed fluticasone 50 mcg/inh nasal spray 1 spray(s), Nasal, Daily, # 16 gm, 0 Refill(s), Start Date: 04/03/24 11:51:00 AM CDT Start Date: 04/03/24 Stop Date: 04/03/24 Status: Discontinued fluticasone 50 mcg/inh nasal spray 2 spray(s), Nasal, BID, # 16 gm, 11 Refill(s), Start Date: 04/19/24 10:19:00 AM CDT, Pharmacy: [facility] #[id number], 173, cm, 03/31/24 10:46:00 CDT, Height/Length Measured, 88.2, kg, 03/31/24 10:51:00 CDT, Weight Dosing Start Date: 04/19/24 Stop Date: 09/05/25 Status: Ordered ibuprofen 600 mg oral tablet 1 tab(s), Oral, QID, PRN PRN for pain, with food or milk, # 30 tab(s), 0 Refill(s), Start Date: 03/03/23 1:53:00 PM CDT, Pharmacy: [facility], 173, cm, 11/18/22 13:25:00 RETAIL BRANCH MANAGER, Height/Length Measured, 89.5, kg, 03/03/23 12:25:00 CDT, Weight Dosing Start Date: 03/03/23 Stop Date: 04/09/23 Status: Completed ibuprofen 800 mg oral tablet 1 tab(s), Oral, q6hr, PRN PRN for pain, 0 Refill(s), Start Date: 09/09/18 7:57:00 AM CDT Start Date: 09/09/18 Stop Date: 09/14/18 Status: Completed Levaquin 750 mg oral tablet 1 tab(s), Oral, Daily, 0 Refill(s), Start Date: 09/09/18 7:57:00 AM CDT Start Date: 09/09/18 Stop Date: 09/12/18 Status: Discontinued levoFLOXacin 500 mg oral tablet 1 tab(s), Oral, Daily, For chronic recurrent sinusitis, X 10 days, # 10 tab(s), 0 Refill(s), Start Date: 03/31/24 11:26:00 AM CDT, Pharmacy: [facility], 173, cm, 03/31/24 10:46:00 CDT, Height/Length Measured, 88.2, kg, 03/31/24 10:51:00 CDT, Weight Dosing Start Date: 03/31/24 Stop Date: 04/11/24 Status: Completed levoFLOXacin 500 mg oral tablet 1 tab(s), Oral, Daily, For chronic recurrent sinusitis, X 10 days, # 10 tab(s), 0 Refill(s), Start Date: 04/11/24 3:29:00 PM CDT, Pharmacy: [facility], 173, cm, 03/31/24 10:46:00 CDT, Height/Length Measured, 88.2, kg, 03/31/24 10:51:00 CDT, Weight Dosing Start Date: 04/11/24 Stop Date: 04/19/24 Status: Completed levoFLOXacin 500 mg oral tablet 1 tab(s), Oral, Daily, For chronic recurrent sinusitis, # 10 tab(s), 0 Refill(s), Start Date: 04/19/24 10:19:00 AM CDT, Pharmacy: [id number], 173, cm, 03/31/24 10:46:00 CDT, Height/Length Measured, 88.2, kg, 03/31/24 10:51:00 CDT, Weight Dosing Start Date: 04/19/24 Stop Date: 04/29/24 Status: Ordered linezolid 600 mg oral tablet 1 tab(s), Oral, q12hr, generic please, # 28 tab(s), 0 Refill(s), Start Date: 11/16/18 11:41:00 AM RETAIL BRANCH MANAGER, Pharmacy: [facility] Start Date: 11/16/18 Stop Date: 12/02/18 Status: Completed Medrol 4 mg oral tablet 1 packet(s), Oral, ONETIME, as directed on package labeling, # 21 tab(s), 0 Refill(s), Start Date: 11/18/22 1:39:00 PM RETAIL BRANCH MANAGER, Pharmacy: [facility], 173, cm, 11/18/22 13:25:00 RETAIL BRANCH MANAGER, Height/Length Measured, 86.3, kg, 11/18/22 13:27:00 RETAIL BRANCH MANAGER, Weight Dosing Start Date: 11/18/22 Stop Date: 03/09/23 Status: Completed metFORMIN 500 mg oral tablet 0.5 tab(s), Oral, BID, # 30 tab(s), 11 Refill(s), Start Date: 04/03/24 11:56:00 AM CDT, Pharmacy: [facility], 173, cm, 03/31/24 10:46:00 CDT, Height/Length Measured, 88.2, kg, 03/31/24 10:51:00 CDT, Weight Dosing Start Date: 04/03/24 Stop Date: 04/19/24 Status: Completed metFORMIN 500 mg oral tablet 0.5 tab(s), Oral, BID, # 30 tab(s), 11 Refill(s), Start Date: 04/19/24 10:19:00 AM CDT, Pharmacy: [facility] #[id number], 173, cm, 03/31/24 10:46:00 CDT, Height/Length Measured, 88.2, kg, 03/31/2410:51:00 CDT, Weight Dosing Start Date: 04/19/24 Status: Ordered MiraLax oral powder for reconstitution 17 gm, Oral, Daily, Dissolve in water before taking, # 255 gm, 0 Refill(s), Start Date: 05/21/18 10:05:00 AM CDT, Pharmacy: [id number] Start Date: 05/21/18 Stop Date: 03/31/24 Status: Completed MS Contin 15 mg oral tablet, extended release 2 tab(s), Oral, q12hr, # 28 tab(s), 0 Refill(s), Start Date: 05/21/18 10:04:00 AM CDT, Pharmacy: [id number] Start Date: 05/21/18 Stop Date: 09/09/18 Status: Completed MS Contin 30 mg oral tablet, extended release 1 tab(s), Oral, q12hr interval, 0 Refill(s), Start Date: 09/12/18 9:49:00 AM CDT Start Date: 09/12/18 Stop Date: 06/16/19 Status: Completed Multi-Day Plus Minerals oral tablet 1 tab(s), Oral, Daily, # 30 tab(s), 0 Refill(s), Start Date: 09/30/22 3:49:00 PM RETAIL BRANCH MANAGER Start Date: 09/30/22 Status: Ordered oxycodone-acetaminophen 10 mg-325 mg oral tablet 0 Refill(s), Start Date: 11/18/22 1:27:00 PM RETAIL BRANCH MANAGER Start Date: 11/18/22 Stop Date: 04/09/23 Status: Completed oxyCODONE-acetaminophen 10 mg-325 mg oral tablet 1 tab(s), Oral, q6hr, PRN PRN for pain, 0 Refill(s), Start Date: 09/12/18 9:49:00 AM CDT Start Date: 09/12/18 Stop Date: 09/15/18 Status: Discontinued Percocet 10/325 oral tablet 1 tab(s), Oral, q4hr interval, 0 Refill(s), Start Date: 05/15/18 10:18:00 PM CDT Start Date: 05/15/18 Stop Date: 05/17/18 Status: Discontinued Percocet 5/325 oral tablet 1 tab(s), Oral, q4hr, PRN PRN for pain, not to exceed 4000 mg acetaminophen per day, # 40 tab(s), 0Refill(s), Start Date: 05/17/18 4:24:00 PM CDT, Pharmacy: [id number] Start Date: 05/17/18 Stop Date: 09/09/18 Status: Completed Percocet 5/325 oral tablet See Instructions, PRN PRN for pain, 1 tab(s) Oral q6hr not to exceed 4000 mg acetaminophen per day,# 60 tab(s), 0 Refill(s), Start Date: 09/14/18 9:23:00 AM CDT, Pharmacy: [facility] Start Date: 09/14/18 Stop Date: 06/16/19 Status: Completed pregabalin 75 mg oral capsule 1 cap(s), Oral, BID, 0 Refill(s), Start Date: 03/31/24 10:44:00 AM CDT Start Date: 03/31/24 Status: Ordered Senokot S 50 mg-8.6 mg oral tablet 1 tab(s), Oral, BID, X 10 days, # 20 tab(s), 0 Refill(s), Start Date: 05/21/18 10:05:00 AM CDT, Pharmacy: [facility] [id number] Start Date: 05/21/18 Stop Date: 05/31/18 Status: Completed tamsulosin 0.4 mg oral capsule 1 cap(s), Oral, Daily, # 90 cap(s), 3 Refill(s), Start Date: 12/20/18 1:38:00 PM RETAIL BRANCH MANAGER, Pharmacy: [facility] Start Date: 12/20/18 Stop Date: 09/30/22 Status: Completed tamsulosin 0.4 mg oral capsule 1 cap(s), Oral, Daily, 0 Refill(s), Start Date: 09/09/18 7:57:00 AM CDT Start Date: 09/09/18 Stop Date: 12/20/18 Status: Discontinued traMADol 50 mg oral tablet 1 tab(s), Oral, q4hr interval, PRN PRN as needed for pain, # 12 tab(s), 0 Refill(s), Start Date: 03/03/23 1:54:00 PM CDT, Pharmacy: [facility], 173, cm, 11/18/22 13:25:00 RETAIL BRANCH MANAGER, Height/Length Measured, 89.5, kg, 03/03/23 12:25:00 CDT, Weight Dosing Start Date: 03/03/23 Stop Date: 03/31/24 Status: Completed vancomycin 1 g intravenous injection IV, q12hr interval, prescribed by Dr Perdue, 0 Refill(s), Start Date: 10/21/18 8:45:00 AM RETAIL BRANCH MANAGER Start Date: 10/21/18 Stop Date: 11/16/18 Status: Completed Zinc 140 mg (as elemental zinc 50 mg) oral tablet 1 tab(s), Oral, Daily, # 90 tab(s), 0 Refill(s), Start Date: 09/30/22 3:48:00 PM RETAIL BRANCH MANAGER Start Date: 09/30/22 Status: Ordered Problem List Condition Confirmation Course Effective Dates Status H ealth Status Informant Benign essential HTN Confirmed Active Chronic low back pain Confirmed Active Chronic pain syndrome Confirmed Active Chronic sinusitis Confirmed Active Eustachian tube dysfunction Confirmed Active Gait difficulty Confirmed Active History of BPH Confirmed Active History of left hip replacement Confirmed Active History of TIAs Confirmed Active Hyperlipidemia, unspecified Confirmed Active ULLOA (nonalcoholic steatohepatitis) Confirmed Active Right elbow pain Confirmed Active Bilateral leg pain Confirmed Active PTSD (post-traumatic stress disorder) Confirmed Active Prediabetes Confirmed Active Bilateral shoulder pain Confirmed Active Pulsatile tinnitus Confirmed Active Type 2 diabetes mellitus without complications Confirmed Active Vertigo Confirmed Active Procedures Procedure Date Related Diagnosis Body Site Status Application Wound Vac (Right , Ankle R) 1 09/14/18 Completed Biopsy Bone (Right, Ankle R) 2 09/14/18 Completed I&D Lower Extremity (Right, Ankle R) 3 09/14/18 Completed Application Wound Vac 4 05/19/18 C ompleted I&D Lower Extremity (Right, Ankle R) 5 05/19/18 Completed Application Wound Vac (Ankle, Right) 6 05/16/18 Completed I&D Lower Extremity (Ankle R) 7 05/16/18 Completed Colonoscopy 8 Completed elbow surgery 9 Completed Hip replacement 10 Comple lobito shoulder surgery 11 Compl eted Shoulder surgery 12 Compl eted Tonsillectomy Completed wrist fusion 13 Completed 1auto-populated from documented surgical case 2auto-populated from documented surgical case 3auto-populated from documented surgical case 4auto-populated from documented surgical case 5auto-populated from documented surgical case 6auto-populated from documented surgical case 7auto-populated from documented surgical case 8several for multiple polyps -has one scheduled November 2018 9ORIF left elbow 10left 11left 12right 13right side Social History Social History Type Response Sex Male Patient Care team information Personnel Name: Carlos Enrique Obando MD Address: Address: [address] [address]- [place]
--- OUTSIDE RECORDS SUMMARY | 2024-11-23 00:06 | XMS_ITS | Continuity of Care Document ---
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 Name Role Phone Carlos Enrique Obando Primary Care Physician Encounter Date(s): 08/31/24 - 08/31/24 Family Medicine [facility] [address] [place] [address]- Discharge Disposition: 01 Discharged to Home or Self Care Allergies, Adverse Reactions, Alerts Substance Criticality Severity Reaction Reaction Severity Status gabapentin Headache Active predniSONE High criticality Moderate Unable to sleep Active Lyrica Lethargy Confusion Active Immunizations Given and Recorded Vaccine Date Status Refusal Reason influenza virus vaccine, inactivated 08/23/20 Chin rded influenza virus vaccine, inactivated 09/15/18 Give n influenza virus vaccine, inactivated 08/09/17 Chin rded tetanus/diphth/pertuss (Tdap) adult/adol 04/16/17 Recorded Medications Acidophilus Probiotic Blend 1 tab, Oral, Daily, 0 Refill(s), Start Date: 09/12/18 9:46:00 AM CDT Start Date: 09/12/18 Stop Date: 06/21/24 Status: Completed amitriptyline 75 mg oral tablet [...] Start Date: 04/22/23 10:25:00 AM CDT, Pharmacy: [facility], 173, cm, 04/09/23 15:48:00 CDT, Height/Length [...] 03/31/24 10:44:00 AM CDT Start Date: 03/31/24 Stop Date: 06/21/24 Status: Completed amLODIPine 10 mg oral tablet 1 tab(s), Oral, Daily, # 90 tab(s), 0 Refill(s), Start Date: 08/25/24 10:07:00 AM CDT Start Date: 08/25/24 Status: Ordered amLODIPine 5 mg oral tablet 1 tab(s), Oral, Daily, # 90 tab(s), 1 Refill(s), Start Date: 03/09/23 10:48:00 AM CDT, Pharmacy: [facility], 173, cm, 03/09/23 10:20:00 CDT, Height/Length Measured, 89.5, kg, 03/09/23 10:22:00 CDT, Weight Dosing Start Date: 03/09/23 Stop Date: 08/27/23 Status: Completed amLODIPine 5 mg oral tablet 1 tab(s), Oral, Daily, # 90 tab(s), 3 Refill(s), Start Date: 08/27/23 8:41:00 AM CDT, Pharmacy: [facility], 173, cm, 04/09/23 15:48:00 CDT, Height/Length Measured, 87.6, kg, 04/09/23 15:50:00 CDT, Weight Dosing Start Date: 08/27/23 Stop Date: 03/31/24 Status: Completed aspirin 81 mg oral delayed release tablet 1 tab(s), Oral, Daily, # 30 tab(s), 0 Refill(s), Start Date: 03/09/23 10:18:00 AM CDT Start Date: 03/09/23 Stop Date: 06/21/24 Status: Completed aspirin 81 mg oral delayed release tablet 1 tab(s), Oral, Daily, # 30 tab(s), 11 Refill(s), Start Date: 07/26/24 3:47:00 PM CDT, Pharmacy: [facility] #[id number], 173, cm, 07/26/24 15:14:00 CDT, Height/Length Measured, 88, kg, 07/26/24 15:24:00 CDT, Weight Dosing Start Date: 07/26/24 Status: Ordered atorvastatin 20 mg oral tablet 1 tab(s), Oral, Daily, # 30 tab(s), 0 Refill(s), Start Date: 03/31/24 10:45:00 AM CDT Start Date: 03/31/24 Stop Date: 06/21/24 Status: Completed atorvastatin 20 mg oral tablet 1 tab(s), Oral, Daily, # 90 tab(s), 3 Refill(s), Start Date: 07/07/24 11:58:00 AM CDT, Pharmacy: [facility] #[id number], 173, cm, 07/07/24 9:24:00 CDT, Height/Length Measured, 88.2, kg, 07/07/24 9:25:00 CDT, Weight Dosing Start Date: 07/07/24 Status: Ordered baclofen 10 mg oral tablet 1 tab(s), Oral, TID, # 30 tab(s), 0 Refill(s), Start Date: 03/09/23 10:49:00 AM CDT, Pharmacy: [facility], 173, cm, 03/09/23 10:20:00 CDT, Height/Length Measured, 89.5, kg, 03/09/23 10:22:00 CDT,Weight Dosing Start Date: 03/09/23 Stop Date: 04/22/23 Status: Completed baclofen 10 mg oral tablet 1 tab(s), Oral, TID, # 30 tab(s), 1 Refill(s), Start Date: 04/22/23 11:37:00 AM CDT, Pharmacy: [facility], 173, cm, 04/09/23 15:48:00 CDT, Height/Length Measured, 87.6, kg, 04/09/23 15:50:00 CDT, Weight Dosing Start Date: 04/22/23 Stop Date: 03/31/24 Status: Completed baclofen 10 mg oral tablet 0 Refill(s), Start Date: 11/18/22 1:27:00 PM DRILL BIT SHARPENER Start Date: 11/18/22 Stop Date: 03/09/23 Status: Discontinued baclofen 10 mg oral tablet 1 tab(s), Oral, TID, PRN PRN for pain, 0 Refill(s), Start Date: 05/15/18 11:15:00 PM CDT Start Date: 05/15/18 Stop Date: 06/16/19 Status: Completed baclofen 10 mg tablet baclofen 10 mg tablet, 1 tab(s), Oral, TID, # 30 tab(s), 2 Refill(s), Pharmacy: [facility], 173, cm, 04/09/23 15:48:00 CDT, Height/Length Measured, 87.6, kg, 04/09/23 15:50:00 CDT, Weight Dosing Start Date: 06/08/23 Stop Date: 03/31/24 Status: Completed baclofen 10 mg tablet baclofen 10 mg tablet, 1 tab(s), Oral, TID, # 30 tab(s), 2 Refill(s), Pharmacy: [facility], 173, cm, 04/09/23 15:48:00 CDT, Height/Length Measured, 87.6, kg, 04/09/23 15:50:00 CDT, Weight Dosing Start Date: 06/18/23 Stop Date: 03/31/24 Status: Completed carisoprodol 250 mg oral tablet 1 tab(s), Oral, BID, # 60 tab(s), 5 Refill(s), Start Date: 07/26/24 3:47:00 PM CDT, Pharmacy: [facility] #[id number], 173, cm, 07/26/24 15:14:00 CDT, Height/Length Measured, 88, kg, 07/26/24 15:24:00 CDT, Weight Dosing Start Date: 07/26/24 Stop Date: 08/25/24 Status: Discontinued cephalexin 500 mg oral capsule 1 cap(s), Oral, QID, 0 Refill(s), Start Date: 09/09/18 7:56:00 AM CDT Start Date: 09/09/18 Stop Date: 09/12/18 Status: Discontinued ciprofloxacin 750 mg oral tablet 1 tab(s), Oral, q12hr, 2h away from dairy, # 20 tab(s), 0 Refill(s), Start Date: 11/09/18 6:34:00 PM DRILL BIT SHARPENER, Pharmacy: [facility] Start Date: 11/09/18 Stop Date: 12/16/18 Status: Completed ciprofloxacin 750 mg oral tablet 1 tab(s), Oral, q12hr, 2h away from dairy, X 14 days, # 28 tab(s), 2 Refill(s), Start Date: :21:00 PM DRILL BIT SHARPENER, Pharmacy: [facility] Start Date: 09/19/18 Stop Date: 11/09/18 Status: Completed clindamycin 150 mg oral capsule 1 cap(s), Oral, q6hr, 0 Refill(s), Start Date: 09/09/18 7:56:00 AM CDT Start Date: 09/09/18 Stop Date: 09/12/18 Status: Discontinued diclofenac 1% topical gel 1 marianna, Topical, QID, 0 Refill(s), Start Date: 09/09/18 7:57:00 AM CDT Start Date: 09/09/18 Stop Date: 03/31/24 Status: Completed diclofenac 1% topical gel 1 marianna, Topical, QID, PRN PRN for pain, 0 Refill(s), Start Date: 08/25/24 10:19:00 AM CDT Start Date: 08/25/24 Stop Date: 08/25/24 Status: Discontinued diclofenac sodium 25 mg oral delayed release tablet 1 tab(s), Oral, TID, 0 Refill(s), Start Date: 03/31/24 10:43:00 AM CDT Start Date: 03/31/24 Stop Date: 07/07/24 Status: Discontinued DME - Hypafix Tape 2 X10 yards See Instructions, Ulcer right 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 daily 3 months, # 1 EA, 0 Refill(s), 05/05/19 9:20:00 AM CDT, Supply Start Date: 05/05/19 Stop Date: 06/21/24 Status: Completed DME - Hypafix Tape 2 X10 yards See Instructions, Ulcer right 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 daily 3 months, # 1 EA, 0 Refill(s), 03/08/19 4:00:00 PM CDT, Supply Start Date: 03/08/19 Stop Date: 08/25/24 Status: Completed DME - Mepilex Border 4X4 See Instructions, [...] 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 daily 3 months 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 inch See Instructions, Diagnosis Code: ULCER Length of Need:3 MONTHS Right lateral 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 drainage change every other day.gave 6 pieces from our stock please replace, # 1 EA, 0 Refill(s), 06/16/19 9:48:00 AM CDT, Supply Start Date: 06/16/19 Stop Date: 06/21/24 Status: Completed DME - Walker Standard with wheels 1 [...] 3 Refill(s), Start Date: 12/20/18 1:37:00 PM DRILL BIT SHARPENER, Pharmacy: [facility] Start Date: 12/20/18 Stop Date: 09/30/22 Status: Completed finasteride 5 mg oral tablet 1 tab(s), Oral, Daily, # 30 tab(s), 0 Refill(s), Start Date: 03/31/24 10:43:00 AM CDT Start Date: 03/31/24 Stop Date: 06/21/24 Status: Completed finasteride 5 mg oral tablet 1 tab(s), Oral, Daily, # 90 tab(s), 0 Refill(s), Start Date: 08/25/24 10:07:00 AM CDT Start Date: 08/25/24 Status: Ordered fluticasone 50 mcg/inh nasal spray 2 spray(s), Nasal, BID, X 42 days, # 16 gm, 11 Refill(s), Start Date: 04/03/24 11:55:00 AM CDT, Pharmacy: [facility], 173, cm, 03/31/24 10:46:00 CDT, Height/Length [...] Start Date: 04/19/24 10:19:00 AM CDT, Pharmacy: [facility] #[id number], 173, cm, 03/31/24 10:46:00 CDT, Height/Length Measured, 88.2, kg, 03/31/24 10:51:00 CDT, Weight Dosing Start Date: 04/19/24 Stop Date: 06/21/24 Status: Completed gabapentin 300 mg oral capsule 1 cap(s), Oral, TID, # 90 cap(s), 11 Refill(s), Start Date: 07/07/24 10:05:00 AM CDT, Pharmacy: [facility] #[id number], 173, cm, 07/07/24 9:24:00 CDT, Height/Length Measured, 88.2, kg, 07/07/24 9:25:00 CDT, Weight Dosing Start Date: 07/07/24 Stop Date: 07/11/24 Status: Discontinued hydrocodone-acetaminophen 5 mg-325 mg oral tablet See Instructions, 1/2 to 1 tab(s) Oral TID, # 60 tab(s), 0 Refill(s), Start Date: 07/11/24 2:53:00 PM CDT, Pharmacy: [facility] #[id number], 173, cm, 07/07/24 9:24:00 CDT, Height/Length Measured,88.2, kg, 07/07/24 9:25:00 CDT, Weight Dosing Start Date: 07/11/24 Stop Date: 07/26/24 Status: Discontinued ibuprofen 600 mg oral tablet 1 tab(s), Oral, QID, PRN PRN for pain, with food or milk, # 30 tab(s), 0 Refill(s), Start Date: 03/03/23 1:53:00 PM CDT, Pharmacy: [facility], 173, cm, 11/18/22 13:25:00 DRILL BIT SHARPENER, Height/Length Measured, 89.5, kg, 03/03/23 12:25:00 CDT, Weight Dosing Start Date: 03/03/23 Stop Date: 04/09/23 Status: Completed ibuprofen 800 mg oral tablet 1 tab(s), Oral, q6hr, PRN PRN for pain, 0 Refill(s), Start Date: 09/09/18 7:57:00 AM CDT Start Date: 09/09/18 Stop Date: 09/14/18 Status: Completed indomethacin 25 mg oral capsule 1 cap(s), Oral, TID, # 30 cap(s), 11 Refill(s), Start Date: 07/07/24 10:05:00 AM CDT, Pharmacy: [facility] #[id number], 173, cm, 07/07/24 9:24:00 CDT, Height/Length Measured, 88.2, kg, 07/07/24 9:25:00 CDT, Weight Dosing Start Date: 07/07/24 Stop Date: 07/26/24 Status: Discontinued Levaquin 750 mg oral tablet 1 tab(s), Oral, Daily, 0 Refill(s), Start Date: 09/09/18 7:57:00 AM CDT Start Date: 09/09/18 Stop Date: 09/12/18 Status: Discontinued levoFLOXacin 500 mg oral tablet 1 tab(s), Oral, Daily, For chronic recurrent sinusitis, X 10 days, # 10 tab(s), 0 Refill(s), Start Date: 03/31/24 11:26:00 AM CDT, Pharmacy: [facility], 173, cm, 03/31/24 10:46:00 CDT, Height/Length Measured, 88.2, kg, 03/31/24 10:51:00 CDT, Weight Dosing Start Date: 03/31/24 Stop Date: 04/11/24 Status: Completed levoFLOXacin 500 mg oral tablet 1 tab(s), Oral, Daily, For chronic recurrent sinusitis, X 10 days, # 10 tab(s), 0 Refill(s), Start Date: 04/11/24 3:29:00 PM CDT, Pharmacy: [facility], 173, cm, 03/31/24 10:46:00 CDT, Height/Length Measured, 88.2, kg, 03/31/24 10:51:00 CDT, Weight Dosing Start Date: 04/11/24 Stop Date: 04/19/24 Status: Completed levoFLOXacin 500 mg oral tablet 1 tab(s), Oral, Daily, For chronic recurrent sinusitis, # 10 tab(s), 0 Refill(s), Start Date: 04/19/24 10:19:00 AM CDT, Pharmacy: [facility] #[id number], 173, cm, 03/31/24 10:46:00 CDT, Height/Length Measured, 88.2, kg, 03/31/24 10:51:00 CDT, Weight Dosing Start Date: 04/19/24 Stop Date: 06/06/24 Status: Completed linezolid 600 mg oral tablet 1 tab(s), Oral, q12hr, generic please, # 28 tab(s), 0 Refill(s), Start Date: 11/16/18 11:41:00 AM DRILL BIT SHARPENER, Pharmacy: [facility] Start Date: 11/16/18 Stop Date: 12/02/18 Status: Completed Medrol 4 mg oral tablet 1 packet(s), Oral, ONETIME, as directed on package labeling, # 21 tab(s), 0 Refill(s), Start Date: 11/18/22 1:39:00 PM DRILL BIT SHARPENER, Pharmacy: [facility], 173, cm, 11/18/22 13:25:00 DRILL BIT SHARPENER, Height/Length Measured, 86.3, kg, 11/18/22 13:27:00 DRILL BIT SHARPENER, Weight Dosing Start Date: 11/18/22 Stop Date: 03/09/23 Status: Completed metFORMIN 500 mg oral tablet 0.5 tab(s), Oral, BID, # 30 tab(s), 11 Refill(s), Start Date: 04/03/24 11:56:00 AM CDT, Pharmacy: [facility], 173, cm, 03/31/24 10:46:00 CDT, Height/Length Measured, 88.2, kg, 03/31/24 10:51:00 CDT, Weight Dosing Start Date: 04/03/24 Stop Date: 04/19/24 Status: Completed metFORMIN 500 mg oral tablet 0.5 tab(s), Oral, BID, # 30 tab(s), 11 Refill(s), Start Date: 04/19/24 10:19:00 AM CDT, Pharmacy: [facility] #[id number], 173, cm, 03/31/24 10:46:00 CDT, Height/Length Measured, 88.2, kg, 03/31/2410:51:00 CDT, Weight Dosing Start Date: 04/19/24 Stop Date: 06/21/24 Status: Completed metFORMIN 500 mg oral tablet 1 tab(s), Oral, BID, # 180 tab(s), 3 Refill(s), Start Date: 07/07/24 11:58:00 AM CDT, Pharmacy: [facility] #[id number], 173, cm, 07/07/24 9:24:00 CDT, Height/Length Measured, 88.2, kg, 07/07/24 9:25:00 CDT, Weight Dosing Start Date: 07/07/24 Status: Ordered MiraLax oral powder for reconstitution 17 gm, Oral, Daily, Dissolve in water before taking, # 255 gm, 0 Refill(s), Start Date: 05/21/18 10:05:00 AM CDT, [facility]acy: [facility] [id number] Start Date: 05/21/18 Stop Date: 03/31/24 Status: Completed MS Contin 15 mg oral tablet, extended release 2 tab(s), Oral, q12hr, # 28 tab(s), 0 Refill(s), Start Date: 05/21/18 10:04:00 AM CDT, Pharmacy: [facility] [id number] Start Date: 05/21/18 Stop Date: 09/09/18 Status: Completed MS Contin 30 mg oral tablet, extended release 1 tab(s), Oral, q12hr interval, 0 Refill(s), Start Date: 09/12/18 9:49:00 AM CDT Start Date: 09/12/18 Stop Date: 06/16/19 Status: Completed Multi-Day Plus Minerals oral tablet 1 tab(s), Oral, Daily, # 30 tab(s), 0 Refill(s), Start Date: 09/30/22 3:49:00 PM DRILL BIT SHARPENER Start Date: 09/30/22 Stop Date: 06/21/24 Status: Completed Narcan 4 mg/0.1 mL nasal spray 1 spray(s), Nasal, ONETIME, # 2 EA, 11 Refill(s), Start Date: 07/07/24 10:15:00 AM CDT, Pharmacy: [facility] #[id number], 173, cm, 07/07/24 9:24:00 CDT, Height/Length Measured, 88.2, kg, :25:00 CDT, Weight Dosing Start Date: 07/07/24 Stop Date: 07/26/24 Status: Discontinued Narcan 4 mg/0.1 mL nasal spray 1 spray(s), Nasal, ONETIME, # 2 EA, 0 Refill(s), Start Date: 08/25/24 3:51:00 PM CDT, Pharmacy: [id number], 173, cm, 07/26/24 15:14:00 CDT, Height/Length Measured, 88, kg, 08/17/24 7:54:00 CDT, Weight Dosing Start Date: 08/25/24 Status: Ordered oxycodone-acetaminophen 10 mg-325 mg oral tablet 0 Refill(s), Start Date: 11/18/22 1:27:00 PM DRILL BIT SHARPENER Start Date: 11/18/22 Stop Date: 04/09/23 Status: Completed oxyCODONE-acetaminophen 10 mg-325 mg oral tablet 1 tab(s), Oral, q6hr, PRN PRN for pain, 0 Refill(s), Start Date: 09/12/18 9:49:00 AM CDT Start Date: 09/12/18 Stop Date: 09/15/18 Status: Discontinued oxycodone-acetaminophen 5 mg-325 mg oral tablet 1 tab(s), Oral, TID, PRN PRN pain moderate 4-7, # 42 tab(s), 0 Refill(s), Start Date: 07/07/24 10:05:00 AM CDT, Pharmacy: [facility] #[id number], 173, cm, 07/07/24 9:24:00 CDT, Height/Length Measured, 88.2, kg, 07/07/24 9:25:00 CDT, Weight Dosing Start Date: 07/07/24 Stop Date: 07/11/24 Status: Discontinued oxycodone-acetaminophen 5 mg-325 mg oral tablet 1 tab(s), Oral, TID, PRN PRN pain severe 8-10, # 90 tab(s), 0 Refill(s), Start Date: 08/25/24 10:49:00 AM CDT, Pharmacy: [id number], 173, cm, 07/26/24 15:14:00 CDT, Height/Length Measured, 88, kg, 08/17/24 7:54:00 CDT, Weight Dosing Start Date: 08/25/24 Status: Ordered Percocet 10/325 oral tablet 1 tab(s), Oral, q4hr interval, 0 Refill(s), Start Date: 05/15/18 10:18:00 PM CDT Start Date: 05/15/18 Stop Date: 05/17/18 Status: Discontinued Percocet 5/325 oral tablet 1 tab(s), Oral, q4hr, PRN PRN for pain, not to exceed 4000 mg acetaminophen per day, # 40 tab(s), 0Refill(s), Start Date: 05/17/18 4:24:00 PM CDT, Pharmacy: [facility] [id number] Start Date: 05/17/18 Stop Date: 09/09/18 Status: Completed Percocet 5/325 oral tablet See Instructions, PRN PRN for pain, 1 tab(s) Oral q6hr not to exceed 4000 mg acetaminophen per day,# 60 tab(s), 0 Refill(s), Start Date: 09/14/18 9:23:00 AM CDT, Pharmacy: [facility] Start Date: 09/14/18 Stop Date: 06/16/19 Status: Completed predniSONE 10 mg oral tablet 3 tab(s), Oral, BID, For inflammation and pain, # 84 tab(s), 0 Refill(s), Start Date: 08/10/24 9:14:00 AM CDT, Pharmacy: [id number], 173, cm, 07/26/24 15:14:00 CDT, Height/Length Measured, 88, kg, 07/26/24 15:24:00 CDT, Weight Dosing Start Date: 08/10/24 Stop Date: 08/25/24 Status: Discontinued predniSONE 10 mg oral tablet 3 tab(s), Oral, BID, For inflammation and pain, # 84 tab(s), 0 Refill(s), Start Date: 07/26/24 3:47:00 PM CDT, Pharmacy: [facility] #[id number], 173, cm, 07/26/24 15:14:00 CDT, Height/Length Measured, 88, kg, 07/26/24 15:24:00 CDT, Weight Dosing Start Date: 07/26/24 Stop Date: 08/10/24 Status: Completed pregabalin 75 mg oral capsule 1 cap(s), Oral, BID, 0 Refill(s), Start Date: 03/31/24 10:44:00 AM CDT Start Date: 03/31/24 Stop Date: 07/07/24 Status: Discontinued Senokot S 50 mg-8.6 mg oral tablet 1 tab(s), Oral, BID, X 10 days, # 20 tab(s), 0 Refill(s), Start Date: 05/21/18 10:05:00 AM CDT, Pharmacy: [facility] [id number] Start Date: 05/21/18 Stop Date: 05/31/18 Status: Completed tamsulosin 0.4 mg oral capsule 1 cap(s), Oral, Daily, # 90 cap(s), 3 Refill(s), Start Date: 12/20/18 1:38:00 PM DRILL BIT SHARPENER, Pharmacy: [facility] Start Date: 12/20/18 Stop Date: 09/30/22 Status: Completed tamsulosin 0.4 mg oral capsule 1 cap(s), Oral, Daily, 0 Refill(s), Start Date: 09/09/18 7:57:00 AM CDT Start Date: 09/09/18 Stop Date: 12/20/18 Status: Discontinued traMADol 50 mg oral tablet 1 tab(s), Oral, q4hr interval, PRN PRN as needed for pain, # 12 tab(s), 0 Refill(s), Start Date: 03/03/23 1:54:00 PM CDT, Pharmacy: [facility], 173, cm, 11/18/22 13:25:00 DRILL BIT SHARPENER, Height/Length Measured, 89.5, kg, 03/03/23 12:25:00 CDT, Weight Dosing Start Date: 03/03/23 Stop Date: 03/31/24 Status: Completed vancomycin 1 g intravenous injection IV, q12hr interval, prescribed by Dr Perdue, 0 Refill(s), Start Date: 10/21/18 8:45:00 AM DRILL BIT SHARPENER Start Date: 10/21/18 Stop Date: 11/16/18 Status: Completed Zinc 140 mg (as elemental zinc 50 mg) oral tablet 1 tab(s), Oral, Daily, # 90 tab(s), 0 Refill(s), Start Date: 09/30/22 3:48:00 PM DRILL BIT SHARPENER Start Date: 09/30/22 Stop Date: 06/21/24 Status: Completed Problem List Condition Confirmation Course Effective Dates Status H ealth Status Informant Arthritis of left wrist Confirmed Active Benign essential HTN Confirmed Active Chronic intractable pain Confirmed Active Chronic low back pain Confirmed Active Chronic neck pain Confirmed Active Chronic pain syndrome Confirmed Active Chronic sinusitis Confirmed Active Eustachian tube dysfunction Confirmed Active Gait difficulty Confirmed Active History of BPH Confirmed Active History of left hip replacement Confirmed Active History of TIAs Confirmed Active Hyperlipidemia, unspecified Confirmed Active Neuropathy of leg Confirmed Active ULLOA (nonalcoholic steatohepatitis) Confirmed Active Osteoarthritis of carpometacarpal joint of left thumb Confirmed Active Right elbow pain Confirmed Active Bilateral leg pain Confirmed Active PTSD (post-traumatic stress disorder) Confirmed Active Prediabetes Confirmed Active Bilateral shoulder pain Confirmed Active Pulsatile tinnitus Confirmed Active Type 2 diabetes mellitus without complications Confirmed Active Vertigo Confirmed Active Left wrist effusion Confirmed Active Procedures Procedure Date Related Diagnosis Body Site Status Epidural Steroid Injection - Lumbar 1 06/21/24 Completed Procedure 2 08/29/21 Completed Esophagogastroduodenoscopy 12/18/20 Completed Application Wound Vac (Right , Ankle R) 3 09/14/18 Completed Biopsy Bone (Right, Ankle R) 4 09/14/18 Completed I&D Lower Extremity (Right, Ankle R) 5 09/14/18 Completed Application Wound Vac 6 05/19/18 C ompleted I&D Lower Extremity (Right, Ankle R) 7 05/19/18 Completed Application Wound Vac (Ankle, Right) 8 05/16/18 Completed I&D Lower Extremity (Ankle R) 9 05/16/18 Completed Colonoscopy 10, 11 Comple lboito elbow surgery 12, 13 Comp leted Hip replacement 14 Comple lobito Operation 15 Completed shoulder surgery 16, 17 C ompleted Shoulder surgery 18, 19 C ompleted Tonsillectomy Completed wrist fusion 20, 21 Compl eted 1auto-populated from documented surgical case 2Septoplasty w/ turbinoplasty w/ Dr. zhao 3auto-populated from documented surgical case 4auto-populated from documented surgical case 5auto-populated from documented surgical case 6auto-populated from documented surgical case 7auto-populated from documented surgical case 8auto-populated from documented surgical case 9auto-populated from documented surgical case 10Colonoscopy w/ polypectomy 12/07/18 11several for multiple polyps -has one scheduled November 2018 12ORIF left elbow 13LT Elbow surgery from elbow to forearm 14left [id number] procedure 16left 17LT Rotator Cuff Repair 18right 19RT Tendon Repair 20right side 21RT Wrist Surgery- Frzn wrist- 2 screws Social History Social History Type Response Sex Male Patient Care team information Personnel Name: Carlos Enrique Obando MD Address: Address: [address] [place] [address]
--- OUTSIDE RECORDS SUMMARY | 2024-11-23 00:06 | XMS_ITS | Summary of Care ---
Author Organization [facility] Address [address] [place] [address] Care Team Providers Care Clinical Business Manager Name Role Phone Lucretia Carvalho Primary Care Physician Encounter Date(s): 04/09/23 - 04/09/[address] [facility] [address] [place] [address]- Encounter Diagnosis Follow-up exam(Discharge Diagnosis) - 04/09/23 Chronic pain syndrome(Discharge Diagnosis) - 04/09/23 Bilateral shoulder pain(Discharge Diagnosis) - 04/09/23 PTSD (post-traumatic stress disorder)(Discharge Diagnosis) - 04/09/23 HTN (hypertension)(Discharge Diagnosis) - 04/09/23 ULLOA (nonalcoholic steatohepatitis)(Discharge Diagnosis) - 04/09/23 Discharge Disposition: 01 Discharged to Home or Self Care Attending Physician: Lucretia Carvalho MD Referring Physician: Lucretia Carvalho MD Vital Signs Most recent to oldest [Reference Range]: 1 Temperature Temporal Artery [36.3-37.8 D egC] 37.0 DegC (04/09/23 3:48 PM) Peripheral Pulse Rate [60-100 bpm] 84 bp m (04/09/23 3:48 PM) Respiratory Rate [14-20 br/min] 16 br/mi n (04/09/23 3:48 PM) Blood Pressure [90-120/60-80 mmHg] 126/7 4mmHg *HI* (04/09/23 3:48 PM) SpO2 [95 %] 97 % (04/09/23 3:48 PM) Mean Arterial Pressure, Cuff [70-110 mmH g] 91 mmHg (04/09/23 3:48 PM) Height/Length Measured 173 cm (04/09/23 3:48 PM) Weight Dosing 87.60 kg 1 (04/09/23 3:50 PM) Weight Measured 87.6 kg (04/09/23 3:48 PM) BSA Measured 2.02 m2 (04/09/23 3:48 PM) Body Mass Index Measured 29.27 kg/m2 (04/09/23 3:48 PM) 1Result Comment: This result was because the dosing weight was either not entered or it is >30 days old. This result is based off: Weight Measured April 09, 2023 15:48:00 CDT by Buddy Chavez RN Problem List Condition Confirmation Course Effective Dates Status Health St [facility] Informant Chronic pain syndrome Confirmed Active Gait difficulty Confirmed Active History of BPH Confirmed Active History of left hip replacement Confirmed Active HTN (hypertension) Confirmed Active ULLOA (nonalcoholic steatohepatitis) Confirmed Active PTSD (post-traumatic stress disorder) Confirmed Active Prediabetes Confirmed Active Bilateral shoulder pain Confirmed Active Allergies, Adverse Reactions, Alerts No Known Medication Allergies Medications Acidophilus Probiotic Blend 1 tab, Oral, Daily, 0 Refill(s), Start Date: 09/12/18 9:46:00 CDT Start Date: 09/12/18 Status: Ordered amitriptyline 75 mg oral tablet 1 tab(s), Oral, HS, # 30 tab(s), 0 Refill(s), Start Date: 03/09/23 10:50:00 CDT, Pharmacy: [facility], 173, cm, 03/09/23 10:20:00 CDT, Height/Length Measured, 89.5, kg, 03/09/23 10:22:00 CDT, Weight Dosing Start Date: 03/09/23 Status: Ordered amitriptyline 75 mg oral tablet 1 tab(s), Oral, HS, 0 Refill(s), Start Date: 05/15/18 22:18:00 CDT Start Date: 05/15/18 Stop Date: 03/09/23 Status: Discontinued amitriptyline 75 mg oral tablet tab(s), Oral, HS, 0 Refill(s), Start Date: 05/15/18 23:15:00 CDT Start Date: 05/15/18 Stop Date: 09/12/18 Status: Discontinued amLODIPine 5 mg oral tablet 1 tab(s), Oral, Daily, # 90 tab(s), 1 Refill(s), Start Date: 03/09/23 10:48:00 CDT, Pharmacy: [facility], 173, cm, 03/09/23 10:20:00 CDT, Height/Length Measured, 89.5, kg, 03/09/23 10:22:00 CDT,Weight Dosing Start Date: 03/09/23 Status: Ordered aspirin 81 mg oral delayed release tablet 1 tab(s), Oral, Daily, # 30 tab(s), 0 Refill(s), Start Date: 03/09/23 10:18:00 CDT Start Date: 03/09/23 Status: Ordered baclofen 10 mg oral tablet 1 tab(s), Oral, TID, # 30 tab(s), 0 Refill(s), Start Date: 03/09/23 10:49:00 CDT, Pharmacy: [facility], 173, cm, 03/09/23 10:20:00 CDT, Height/Length Measured, 89.5, kg, 03/09/23 10:22:00 CDT, Weight Dosing Start Date: 03/09/23 Status: Ordered baclofen 10 mg oral tablet 0 Refill(s), Start Date: 11/18/22 13:27:00 BACK PANEL PADDER Start Date: 11/18/22 Stop Date: 03/09/23 Status: Discontinued baclofen 10 mg oral tablet 1 tab(s), Oral, TID, PRN PRN for pain, 0 Refill(s), Start Date: 05/15/18 23:15:00 CDT Start Date: 05/15/18 Stop Date: 06/16/19 Status: Completed cephalexin 500 mg oral capsule 1 cap(s), Oral, QID, 0 Refill(s), Start Date: 09/09/18 7:56:00 CDT Start Date: 09/09/18 Stop Date: 09/12/18 Status: Discontinued ciprofloxacin 750 mg oral tablet 1 tab(s), Oral, q12hr, 2h away from dairy, # 20 tab(s), 0 Refill(s), Start Date: 11/09/18 18:34:00 BACK PANEL PADDER, Pharmacy: [facility] Start Date: 11/09/18 Stop Date: 12/16/18 Status: Completed ciprofloxacin 750 mg oral tablet 1 tab(s), Oral, q12hr, 2h away from dairy, X 14 days, # 28 tab(s), 2 Refill(s), Start Date: 09/19/18 14:21:00 BACK PANEL PADDER, Pharmacy: [facility] Start Date: 09/19/18 Stop Date: 11/09/18 Status: Completed clindamycin 150 mg oral capsule 1 cap(s), Oral, q6hr, 0 Refill(s), Start Date: 09/09/18 7:56:00 CDT Start Date: 09/09/18 Stop Date: 09/12/18 Status: Discontinued diclofenac 1% topical gel 1 marianna, Topical, QID, 0 Refill(s), Start Date: 09/09/18 7:57:00 CDT Start Date: 09/09/18 Status: Ordered DME - Hypafix Tape 2 X10 yards See Instructions, Ulcer right 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 daily 3 months, # 1 EA, 0 Refill(s), 05/05/19 9:20:00 CDT, Supply Start Date: 05/05/19 Status: Ordered DME - Hypafix Tape 2 X10 yards See Instructions, Ulcer right 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 daily 3 months, # 1 EA, 0 Refill(s), 03/08/19 16:00:00CDT, Supply Start Date: 03/08/19 Status: Ordered DME - Mepilex Border 4X4 See Instructions, Diagnosis Code: Length of Need:, # 1 EA, 0 Refill(s), 05/22/18 10:00:00 CDT, Supply Start Date: 05/22/18 Stop Date: 09/09/18 Status: Completed DME - Optifoam Gentle 4 x4 See Instructions, Ulcer right 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 daily 3 months, # 1 boxes, 0 Refill(s), 05/05/19 9:20:00 CDT, Supply Start Date: 05/05/19 Stop Date: 06/16/19 Status: Completed DME - Optifoam Gentle 4 x4 See Instructions, Ulcer right 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 daily 3 months, # 1 package, 0 Refill(s), 03/08/19 16:00:00 CDT, Supply Start Date: 03/08/19 Stop Date: 06/16/19 Status: Completed DME - Optifoam Gentle 4 x4 See Instructions, Ulcer right 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 daily 3 months 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 inch See Instructions, Diagnosis Code: ULCER Length of Need:3 MONTHS Right lateral 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 drainage change every other day.gave 6 pieces from our stock please replace, # 1 EA, 0 Refill(s), 06/16/19 9:48:00 CDT, Supply Start Date: 06/16/19 Status: Ordered DME - Walker Standard with wheels 1 EA, N/A, 05/17/18, Criteria in Order Comments Met?, dx weakness R53.1 length of time 3 months, # 1 EA, 0 Refill(s), 05/17/18 15:25:00 CDT, Supply Start Date: 05/17/18 Stop Date: 09/09/18 Status: Completed DULoxetine 60 mg oral delayed release capsule 1 cap(s), Oral, Daily, 0 Refill(s), Start Date: 05/15/18 23:16:00 CDT Start Date: 05/15/18 Stop Date: 09/30/22 Status: Completed finasteride 5 mg oral tablet 1 tab(s), Oral, Daily, # 90 tab(s), 3 Refill(s), Start Date: 12/20/18 13:37:00 BACK PANEL PADDER, Pharmacy: [facility] Start Date: 12/20/18 Stop Date: 09/30/22 Status: Completed ibuprofen 600 mg oral tablet 1 tab(s), Oral, QID, PRN PRN for pain, with food or milk, # 30 tab(s), 0 Refill(s), Start Date: 03/03/23 13:53:00 CDT, Pharmacy: [facility], 173, cm, 11/18/22 13:25:00 BACK PANEL PADDER, Height/Length Measured, 89.5, kg, 03/03/23 12:25:00 CDT, Weight Dosing Start Date: 03/03/23 Stop Date: 04/09/23 Status: Completed ibuprofen 800 mg oral tablet 1 tab(s), Oral, q6hr, PRN PRN for pain, 0 Refill(s), Start Date: 09/09/18 7:57:00 CDT Start Date: 09/09/18 Stop Date: 09/14/18 Status: Completed Levaquin 750 mg oral tablet 1 tab(s), Oral, Daily, 0 Refill(s), Start Date: 09/09/18 7:57:00 CDT Start Date: 09/09/18 Stop Date: 09/12/18 Status: Discontinued linezolid 600 mg oral tablet 1 tab(s), Oral, q12hr, generic please, # 28 tab(s), 0 Refill(s), Start Date: 11/16/18 11:41:00 BACK PANEL PADDER,Pharmacy: [facility] Start Date: 11/16/18 Stop Date: 12/02/18 Status: Completed Medrol 4 mg oral tablet 1 packet(s), Oral, ONETIME, as directed on package labeling, # 21 tab(s), 0 Refill(s), Start Date: 11/18/22 13:39:00 BACK PANEL PADDER, Pharmacy: [facility], 173, cm, 11/18/22 13:25:00 BACK PANEL PADDER, Height/Length Measured, 86.3, kg, 11/18/22 13:27:00 BACK PANEL PADDER, Weight Dosing Start Date: 11/18/22 Stop Date: 03/09/23 Status: Completed MiraLax oral powder for reconstitution 17 gm, Oral, Daily, Dissolve in water before taking, # 255 gm, 0 Refill(s), Start Date: 05/21/18 10:05:00 CDT, Pharmacy: [facility] [id number] Start Date: 05/21/18 Status: Ordered MS Contin 15 mg oral tablet, extended release 2 tab(s), Oral, q12hr, # 28 tab(s), 0 Refill(s), Start Date: 05/21/18 10:04:00 CDT, Pharmacy: [facility] [id number] Start Date: 05/21/18 Stop Date: 09/09/18 Status: Completed MS Contin 30 mg oral tablet, extended release 1 tab(s), Oral, q12hr interval, 0 Refill(s), Start Date: 09/12/18 9:49:00 CDT Start Date: 09/12/18 Stop Date: 06/16/19 Status: Completed Multi-Day Plus Minerals oral tablet 1 tab(s), Oral, Daily, # 30 tab(s), 0 Refill(s), Start Date: 09/30/22 15:49:00 BACK PANEL PADDER Start Date: 09/30/22 Status: Ordered oxycodone-acetaminophen 10 mg-325 mg oral tablet 0 Refill(s), Start Date: 11/18/22 13:27:00 BACK PANEL PADDER Start Date: 11/18/22 Stop Date: 04/09/23 Status: Completed oxyCODONE-acetaminophen 10 mg-325 mg oral tablet 1 tab(s), Oral, q6hr, PRN PRN for pain, 0 Refill(s), Start Date: 09/12/18 9:49:00 CDT Start Date: 09/12/18 Stop Date: 09/15/18 Status: Discontinued Percocet 10/325 oral tablet 1 tab(s), Oral, q4hr interval, 0 Refill(s), Start Date: 05/15/18 22:18:00 CDT Start Date: 05/15/18 Stop Date: 05/17/18 Status: Discontinued Percocet 5/325 oral tablet 1 tab(s), Oral, q4hr, PRN PRN for pain, not to exceed 4000 mg acetaminophen per day, # 40 tab(s), 0Refill(s), Start Date: 05/17/18 16:24:00 CDT, Pharmacy: [facility] [id number] Start Date: 05/17/18 Stop Date: 09/09/18 Status: Completed Percocet 5/325 oral tablet See Instructions, PRN PRN for pain, 1 tab(s) Oral q6hr not to exceed 4000 mg acetaminophen per day,# 60 tab(s), 0 Refill(s), Start Date: 09/14/18 9:23:00 CDT, Pharmacy: [facility] Start Date: 09/14/18 Stop Date: 06/16/19 Status: Completed Senokot S 50 mg-8.6 mg oral tablet 1 tab(s), Oral, BID, X 10 days, # 20 tab(s), 0 Refill(s), Start Date: 05/21/18 10:05:00 CDT, Pharmacy: [facility] [id number] Start Date: 05/21/18 Stop Date: 05/31/18 Status: Completed tamsulosin 0.4 mg oral capsule 1 cap(s), Oral, Daily, # 90 cap(s), 3 Refill(s), Start Date: 12/20/18 13:38:00 BACK PANEL PADDER, Pharmacy: [facility] Start Date: 12/20/18 Stop Date: 09/30/22 Status: Completed tamsulosin 0.4 mg oral capsule 1 cap(s), Oral, Daily, 0 Refill(s), Start Date: 09/09/18 7:57:00 CDT Start Date: 09/09/18 Stop Date: 12/20/18 Status: Discontinued traMADol 50 mg oral tablet 1 tab(s), Oral, q4hr interval, PRN PRN as needed for pain, # 12 tab(s), 0 Refill(s), Start Date: 03/03/23 13:54:00 CDT, Pharmacy: [facility], 173, cm, 11/18/22 13:25:00 BACK PANEL PADDER, Height/Length Measured, 89.5, kg, 03/03/23 12:25:00 CDT, Weight Dosing Start Date: 03/03/23 Status: Ordered vancomycin 1 g intravenous injection IV, q12hr interval, prescribed by Dr Perdue, 0 Refill(s), Start Date: 10/21/18 8:45:00 BACK PANEL PADDER Start Date: 10/21/18 Stop Date: 11/16/18 Status: Completed Zinc 140 mg (as elemental zinc 50 mg) oral tablet 1 tab(s), Oral, Daily, # 90 tab(s), 0 Refill(s), Start Date: 09/30/22 15:48:00 BACK PANEL PADDER Start Date: 09/30/22 Status: Ordered Results Most recent to oldest [Reference Range]: 1 Weight Measured 87.6 kg (04/09/23 3:48 PM) Height/Length Measured 173 cm (04/09/23 3:48 PM) Body Mass Index Measured 29.27 kg/m2 (04/09/23 3:48 PM) Systolic Blood Pressure [90-120 mmHg] 12 6 mmHg *HI* (04/09/23 3:48 PM) Diastolic Blood Pressure [60-80 mmHg] 74 mmHg (04/09/23 3:48 PM) Respiratory Rate [14-20 br/min] 16 br/mi n (04/09/23 3:48 PM) Immunizations Given and Recorded Vaccine Date Status Refusal Reason influenza virus vaccine, inactivated 09/15/18 Give n Procedures Procedure Date Related Diagnosis Body Site [...]
--- OUTSIDE RECORDS SUMMARY | 2024-11-23 00:06 | XMS_ITS | Continuity of Care Document ---
Author Organization [facility] Address [address] [facility] [address] [place] [address] Care Team Providers Care Button Sewing Machine Operator Name Role Phone Carlos Enrique Obando Primary Care Physician [phone] Encounter Date(s): 05/12/24 - 05/12/24 Family Medicine [facility] [address] [place] [address]- Discharge Disposition: Discharged to Home or Self [...] Start Date: 04/22/23 10:25:00 AM CDT, Pharmacy: [facility], 173, cm, 04/09/23 15:48:00 CDT, Height/Length [...] Start Date: 03/09/23 10:48:00 AM CDT, Pharmacy: [facility], 173, cm, 03/09/23 10:20:00 CDT, Height/Length Measured, 89.5, kg, 03/09/23 10:22:00 CDT, Weight Dosing Start Date: 03/09/23 Stop Date: 08/27/23 Status: Completed amLODIPine 5 mg oral tablet 1 tab(s), Oral, Daily, # 90 tab(s), 3 Refill(s), Start Date: 08/27/23 8:41:00 AM CDT, Pharmacy: [facility], 173, cm, 04/09/23 15:48:00 CDT, Height/Length [...] Start Date: 03/09/23 10:49:00 AM CDT, Pharmacy: [facility], 173, cm, 03/09/23 10:20:00 CDT, Height/Length Measured, 89.5, kg, 03/09/23 10:22:00 CDT,Weight Dosing Start Date: 03/09/23 Stop Date: 04/22/23 Status: Completed baclofen 10 mg oral tablet 1 tab(s), Oral, TID, # 30 tab(s), 1 Refill(s), Start Date: 04/22/23 11:37:00 AM CDT, [facility], [facility], 04/09/23 15:48:00 CDT, Height/Length Measured, 87.6, kg, 04/09/23 15:50:00 CDT, Weight Dosing Start Date: 04/22/23 Stop Date: 03/31/24 Status: Completed baclofen 10 mg oral tablet 0 Refill(s), Start Date: 11/18/22 1:27:00 PM PACKAGING OPERATOR Start Date: 11/18/22 Stop Date: 03/09/23 Status: Discontinued baclofen 10 mg oral tablet 1 tab(s), Oral, TID, PRN PRN for pain, 0 Refill(s), Start Date: 05/15/18 11:15:00 PM CDT Start Date: 05/15/18 Stop Date: 06/16/19 Status: Completed baclofen 10 mg tablet baclofen 10 mg tablet, 1 tab(s), Oral, TID, # 30 tab(s), 2 Refill(s), Pharmacy: [facility], 173, cm, 04/09/23 15:48:00 CDT, Height/Length Measured, 87.6, kg, 04/09/23 15:50:00 CDT, Weight Dosing Start Date: 06/08/23 Stop Date: 03/31/24 Status: Completed baclofen 10 mg tablet baclofen 10 mg tablet, 1 tab(s), Oral, TID, # 30 tab(s), 2 Refill(s), Pharmacy: [facility], 173, cm, 04/09/23 15:48:00 CDT, Height/Length [...] 0 Refill(s), Start Date: 11/09/18 6:34:00 PM PACKAGING OPERATOR, Pharmacy: [facility] Start Date: 11/09/18 Stop Date: 12/16/18 Status: Completed ciprofloxacin 750 mg oral tablet 1 tab(s), Oral, q12hr, 2h away from dairy, X 14 days, # 28 tab(s), 2 Refill(s), Start Date: :21:00 PM PACKAGING OPERATOR, Pharmacy: [facility] Start Date: 09/19/18 Stop Date: 11/09/18 [...] 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 daily 3 months 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 inch See Instructions, Diagnosis Code: ULCER Length of Need:3 MONTHS Right lateral 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 drainage change every other day.gave 6 pieces from our stock please replace, # 1 EA, 0 Refill(s), 06/16/19 9:48:00 AM CDT, Supply Start Date: 8/2/19 Status: Ordered DME - Walker Standard with [...] 3 Refill(s), Start Date: 12/20/18 1:37:00 PM PACKAGING OPERATOR, Pharmacy: [facility] Start Date: 12/20/18 Stop Date: 09/30/22 Status: Completed finasteride 5 mg oral tablet 1 tab(s), Oral, Daily, # 30 tab(s), 0 Refill(s), Start Date: 03/31/24 10:43:00 AM CDT Start Date: 03/31/24 Status: Ordered fluticasone 50 mcg/inh nasal spray 2 spray(s), Nasal, BID, X 42 days, # 16 gm, 11 Refill(s), Start Date: 04/03/24 11:55:00 AM CDT, Pharmacy: [facility], 173, cm, 03/31/24 10:46:00 CDT, Height/Length [...] Start Date: 04/19/24 10:19:00 AM CDT, Pharmacy: [facility] #[id number], 173, cm, 03/31/24 10:46:00 CDT, Height/Length Measured, 88.2, kg, 03/31/24 10:51:00 CDT, Weight Dosing Start Date: 04/19/24 Stop Date: 09/05/25 Status: Ordered ibuprofen 600 mg oral tablet 1 tab(s), Oral, QID, PRN PRN for pain, with food or milk, # 30 tab(s), 0 Refill(s), Start Date: 03/03/23 1:53:00 PM CDT, Pharmacy: [facility], 173, cm, 11/18/22 13:25:00 PACKAGING OPERATOR, Height/Length Measured, 89.5, kg, 03/03/23 12:25:00 CDT, [...] Start Date: 03/31/24 11:26:00 AM CDT, Pharmacy: [facility], 173, cm, 03/31/24 10:46:00 CDT, Height/Length Measured, 88.2, kg, 03/31/24 10:51:00 CDT, Weight Dosing Start Date: 03/31/24 Stop Date: 04/11/24 Status: Completed levoFLOXacin 500 mg oral tablet 1 tab(s), Oral, Daily, For chronic recurrent sinusitis, X 10 days, # 10 tab(s), 0 Refill(s), Start Date: 04/11/24 3:29:00 PM CDT, Pharmacy: [facility], 173, cm, 03/31/24 10:46:00 CDT, Height/Length Measured, 88.2, kg, 03/31/24 10:51:00 CDT, Weight Dosing Start Date: 04/11/24 Stop Date: 04/19/24 Status: Completed levoFLOXacin 500 mg oral tablet 1 tab(s), Oral, Daily, For chronic recurrent sinusitis, # 10 tab(s), 0 Refill(s), Start Date: 04/19/24 10:19:00 AM CDT, Pharmacy: [facility] #[id number], 173, cm, 03/31/24 10:46:00 CDT, Height/Length Measured, 88.2, kg, 03/31/24 10:51:00 CDT, Weight Dosing Start Date: 04/19/24 Stop Date: 04/29/24 Status: Ordered linezolid 600 mg oral tablet 1 tab(s), Oral, q12hr, generic please, # 28 tab(s), 0 Refill(s), Start Date: 11/16/18 11:41:00 AM PACKAGING OPERATOR, Pharmacy: [facility] Start Date: 11/16/18 Stop Date: 12/02/18 Status: Completed Medrol 4 mg oral tablet 1 packet(s), Oral, ONETIME, as directed on package labeling, # 21 tab(s), 0 Refill(s), Start Date: 11/18/22 1:39:00 PM PACKAGING OPERATOR, Pharmacy: [facility], 173, cm, 11/18/22 13:25:00 PACKAGING OPERATOR, Height/Length Measured, 86.3, kg, 11/18/22 13:27:00 PACKAGING OPERATOR, Weight Dosing Start Date: 11/18/22 Stop Date: 03/09/23 Status: Completed metFORMIN 500 mg oral tablet 0.5 tab(s), Oral, BID, # 30 tab(s), 11 Refill(s), Start Date: 04/03/24 11:56:00 AM CDT, Pharmacy: [facility], 173, cm, 03/31/24 10:46:00 CDT, Height/Length Measured, 88.2, kg, 03/31/24 10:51:00 CDT, Weight Dosing Start Date: 04/03/24 Stop Date: 04/19/24 Status: Completed metFORMIN 500 mg oral tablet 0.5 tab(s), Oral, BID, # 30 tab(s), 11 Refill(s), Start Date: 04/19/24 10:19:00 AM CDT, Pharmacy: [facility] #[id number], 173, cm, 03/31/24 10:46:00 CDT, Height/Length Measured, 88.2, kg, 03/31/2410:51:00 CDT, Weight Dosing Start Date: 04/19/24 Status: Ordered MiraLax oral powder for reconstitution 17 gm, Oral, Daily, Dissolve in water before taking, # 255 gm, 0 Refill(s), Start Date: 05/21/18 10:05:00 AM CDT, Pharmacy: [facility] [id number] Start Date: 05/21/18 Stop Date: 03/31/24 Status: Completed MS Contin 15 mg oral tablet, extended release 2 tab(s), Oral, q12hr, # 28 tab(s), 0 Refill(s), Start Date: 05/21/18 10:04:00 AM CDT, Pharmacy: [facility] [id number] Start Date: 05/21/18 Stop Date: 09/09/18 Status: Completed MS Contin 30 mg oral tablet, extended release 1 tab(s), Oral, q12hr interval, 0 Refill(s), Start Date: 09/12/18 9:49:00 AM CDT Start Date: 09/12/18 Stop Date: 06/16/19 Status: Completed Multi-Day Plus Minerals oral tablet 1 tab(s), Oral, Daily, # 30 tab(s), 0 Refill(s), Start Date: 09/30/22 3:49:00 PM PACKAGING OPERATOR Start Date: 09/30/22 Status: Ordered oxycodone-acetaminophen 10 mg-325 mg oral tablet 0 Refill(s), Start Date: 11/18/22 1:27:00 PM PACKAGING OPERATOR Start Date: 11/18/22 Stop Date: 04/09/23 Status: [...] Start Date: 05/17/18 4:24:00 PM CDT, Pharmacy: [facility] [id number] Start Date: 05/17/18 Stop Date: 09/09/18 Status: Completed Percocet 5/325 oral tablet See Instructions, PRN PRN for pain, 1 tab(s) Oral q6hr not to exceed 4000 mg acetaminophen per day,# 60 tab(s), 0 Refill(s), Start Date: 09/14/18 9:23:00 AM CDT, Pharmacy: [facility] Start Date: 09/14/18 Stop Date: 06/16/19 Status: Completed pregabalin 75 mg oral capsule 1 cap(s), Oral, BID, 0 Refill(s), Start Date: 03/31/24 10:44:00 AM CDT Start Date: 03/31/24 Status: Ordered Senokot S 50 mg-8.6 mg oral tablet 1 tab(s), Oral, BID, X 10 days, # 20 tab(s), 0 Refill(s), Start Date: 05/21/18 10:05:00 AM CDT, Pharmacy: [facility] [id number] Start Date: 05/21/18 Stop Date: 05/31/18 Status: Completed tamsulosin 0.4 mg oral capsule 1 cap(s), Oral, Daily, # 90 cap(s), 3 Refill(s), Start Date: 12/20/18 1:38:00 PM PACKAGING OPERATOR, Pharmacy: [facility] Start Date: 12/20/18 Stop Date: 09/30/22 Status: Completed tamsulosin 0.4 mg oral capsule 1 cap(s), Oral, Daily, 0 Refill(s), Start Date: 09/09/18 7:57:00 AM CDT Start Date: 09/09/18 Stop Date: 12/20/18 Status: Discontinued traMADol 50 mg oral tablet 1 tab(s), Oral, q4hr interval, PRN PRN as needed for pain, # 12 tab(s), 0 Refill(s), Start Date: 03/03/23 1:54:00 PM CDT, Pharmacy: [facility], 173, cm, 11/18/22 13:25:00 PACKAGING OPERATOR, Height/Length Measured, 89.5, kg, 03/03/23 12:25:00 CDT, Weight Dosing Start Date: 03/03/23 Stop Date: 03/31/24 Status: Completed vancomycin 1 g intravenous injection IV, q12hr interval, prescribed by Dr Perdue, 0 Refill(s), Start Date: 10/21/18 8:45:00 AM PACKAGING OPERATOR Start Date: 10/21/18 Stop Date: 11/16/18 Status: Completed Zinc 140 mg (as elemental zinc 50 mg) oral tablet 1 tab(s), Oral, Daily, # 90 tab(s), 0 Refill(s), Start Date: 09/30/22 3:48:00 PM PACKAGING OPERATOR Start Date: 09/30/22 Status: Ordered Problem List [...] Procedure Date Related Diagnosis Body Site Status Procedure 1 08/29/21 Completed Esophagogastroduodenoscopy 12/18/20 Completed Application Wound Vac (Right , Ankle R) 2 09/14/18 Completed Biopsy Bone (Right, Ankle R) 3 09/14/18 Completed I&D Lower Extremity (Right, Ankle R) 4 09/14/18 Completed Application Wound Vac 5 05/19/18 C ompleted I&D Lower Extremity (Right, Ankle R) 6 05/19/18 Completed Application Wound Vac (Ankle, Right) 7 05/16/18 Completed I&D Lower Extremity (Ankle R) 8 05/16/18 Completed Colonoscopy 9, 10 Complet ed elbow surgery 11, 12 Comp leted Hip replacement 13 Comple lobito Operation 14 Completed shoulder surgery 15, 16 C ompleted Shoulder surgery 17, 18 C ompleted Tonsillectomy Completed wrist fusion 19, 20 Compl eted 1Septoplasty w/ turbinoplasty w/ Dr. zhao 2auto-populated from documented surgical case 3auto-populated from documented surgical case 4auto-populated from documented surgical case 5auto-populated from documented surgical case 6auto-populated from documented surgical case 7auto-populated from documented surgical case 8auto-populated from documented surgical case 9several for multiple polyps -has one scheduled November 2018 10Colonoscopy w/ polypectomy 12/07/18 11ORIF left elbow 12LT Elbow surgery from elbow to forearm 13left [id number] procedure 15left 16LT Rotator Cuff Repair 17right 18RT Tendon Repair 19right side 20RT Wrist Surgery- Frzn wrist- 2 screws Social History Social History Type Response Sex Male Patient Care team information Personnel Name: Carlos Enrique Obando MD Address: Address: [address] [place] [address]
--- OUTSIDE RECORDS SUMMARY | 2024-11-23 00:07 | XMS_ITS | Continuity of Care Document ---
Author Organization [facility] Address [address] [facility] [address] [place] [address] Care Team Providers Care Mechanical Engineering Teacher Name Role Phone Carlos Enrique Obando Primary Care Physician Encounter Date(s): 09/14/24 - 09/14/24 Family Medicine [facility] [address] [place] [address]- Discharge Disposition: 01 Discharged to Home or [...] Start Date: 04/22/23 10:25:00 AM CDT, Pharmacy: [facility], 173, cm, 04/09/23 15:48:00 CDT, Height/Length [...] Start Date: 03/09/23 10:48:00 AM CDT, Pharmacy: [facility], 173, cm, 03/09/23 10:20:00 CDT, Height/Length Measured, 89.5, kg, 03/09/23 10:22:00 CDT, Weight Dosing Start Date: 03/09/23 Stop Date: 08/27/23 Status: Completed amLODIPine 5 mg oral tablet 1 tab(s), Oral, Daily, # 90 tab(s), 3 Refill(s), Start Date: 08/27/23 8:41:00 AM CDT, Pharmacy: [facility], 173, cm, 04/09/23 15:48:00 CDT, Height/Length [...] Start Date: 07/26/24 3:47:00 PM CDT, Pharmacy: [facility] #[id number], 173, cm, 07/26/24 15:14:00 CDT, Height/Length Measured, [...] Start Date: 07/07/24 11:58:00 AM CDT, Pharmacy: [facility] #[id number], 173, cm, 07/07/24 9:24:00 CDT, Height/Length Measured, 88.2, kg, 07/07/24 9:25:00 CDT, Weight Dosing Start Date: 07/07/24 Status: Ordered baclofen 10 mg oral tablet 1 tab(s), Oral, TID, # 30 tab(s), 0 Refill(s), Start Date: 03/09/23 10:49:00 AM CDT, Pharmacy: [facility], 173, cm, 03/09/23 10:20:00 CDT, Height/Length Measured, 89.5, kg, 03/09/23 10:22:00 CDT,Weight Dosing Start Date: 03/09/23 Stop Date: 04/22/23 Status: Completed baclofen 10 mg oral tablet 1 tab(s), Oral, TID, # 30 tab(s), 1 Refill(s), Start Date: 04/22/23 11:37:00 AM CDT, Pharmacy: [facility], 173, cm, 04/09/23 15:48:00 CDT, Height/Length Measured, 87.6, kg, 04/09/23 15:50:00 CDT, Weight Dosing Start Date: 04/22/23 Stop Date: 03/31/24 Status: Completed baclofen 10 mg oral tablet 0 Refill(s), Start Date: 11/18/22 1:27:00 PM TEST DATA DEVELOPER Start Date: 11/18/22 Stop Date: 03/09/23 Status: Discontinued baclofen 10 mg oral tablet 1 tab(s), Oral, TID, PRN PRN for pain, 0 Refill(s), Start Date: 05/15/18 11:15:00 PM CDT Start Date: 05/15/18 Stop Date: 06/16/19 Status: Completed baclofen 10 mg tablet baclofen 10 mg tablet, 1 tab(s), Oral, TID, # 30 tab(s), 2 Refill(s), Pharmacy: [facility], 173, cm, 04/09/23 15:48:00 CDT, Height/Length Measured, 87.6, kg, 04/09/23 15:50:00 CDT, Weight Dosing Start Date: 06/08/23 Stop Date: 03/31/24 Status: Completed baclofen 10 mg tablet baclofen 10 mg tablet, 1 tab(s), Oral, TID, # 30 tab(s), 2 Refill(s), Pharmacy: [facility], 173, cm, 04/09/23 15:48:00 CDT, Height/Length Measured, 87.6, kg, 04/09/23 15:50:00 CDT, Weight Dosing Start Date: 06/18/23 Stop Date: 03/31/24 Status: Completed carisoprodol 250 mg oral tablet 1 tab(s), Oral, BID, # 60 tab(s), 5 Refill(s), Start Date: 07/26/24 3:47:00 PM CDT, Pharmacy: 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, 173, cm, 03/31/24 10:46:00 CDT, Height/Length [...] Start Date: 04/19/24 10:19:00 AM CDT, Pharmacy: [facility] #[id number], 173, cm, 03/31/24 10:46:00 CDT, Height/Length Measured, 88.2, kg, 03/31/24 10:51:00 CDT, Weight Dosing Start Date: 04/19/24 Stop Date: 06/21/24 Status: Completed gabapentin 300 mg oral capsule 1 cap(s), Oral, TID, # 90 cap(s), 11 Refill(s), Start Date: 07/07/24 10:05:00 AM CDT, Pharmacy: [facility] #[id number], 173, cm, 07/07/24 9:24:00 CDT, Height/Length Measured, 88.2, kg, 07/07/24 9:25:00 CDT, Weight Dosing Start Date: 07/07/24 Stop Date: 07/11/24 Status: Discontinued hydrocodone-acetaminophen 5 mg-325 mg oral tablet See Instructions, 1/2 to 1 tab(s) Oral TID, # 60 tab(s), 0 Refill(s), Start Date: 07/11/24 2:53:00 PM CDT, Pharmacy: [facility] #[id number], 173, cm, 07/07/24 9:24:00 CDT, Height/Length Measured,88.2, kg, 07/07/24 9:25:00 CDT, Weight Dosing Start Date: 07/11/24 Stop Date: 07/26/24 Status: Discontinued ibuprofen 600 mg oral tablet 1 tab(s), Oral, QID, PRN PRN for pain, with food or milk, # 30 tab(s), 0 Refill(s), Start Date: 03/03/23 1:53:00 PM CDT, Pharmacy: [facility], 173, cm, 11/18/22 13:25:00 TEST DATA DEVELOPER, Height/Length Measured, 89.5, kg, 03/03/23 12:25:00 CDT, [...] Start Date: 07/07/24 10:05:00 AM CDT, Pharmacy: [facility] #[id number], 173, cm, 07/07/24 9:24:00 CDT, Height/Length Measured, [...] Start Date: 03/31/24 11:26:00 AM CDT, Pharmacy: [facility], 173, cm, 03/31/24 10:46:00 CDT, Height/Length Measured, 88.2, kg, 03/31/24 10:51:00 CDT, Weight Dosing Start Date: 03/31/24 Stop Date: 04/11/24 Status: Completed levoFLOXacin 500 mg oral tablet 1 tab(s), Oral, Daily, For chronic recurrent sinusitis, X 10 days, # 10 tab(s), 0 Refill(s), Start Date: 04/11/24 3:29:00 PM CDT, Pharmacy: [facility], 173, cm, 03/31/24 10:46:00 CDT, Height/Length Measured, 88.2, kg, 03/31/24 10:51:00 CDT, Weight Dosing Start Date: 04/11/24 Stop Date: 04/19/24 Status: Completed levoFLOXacin 500 mg oral tablet 1 tab(s), Oral, Daily, For chronic recurrent sinusitis, # 10 tab(s), 0 Refill(s), Start Date: 04/19/24 10:19:00 AM CDT, Pharmacy: [facility] #[id number], 173, cm, 03/31/24 10:46:00 CDT, Height/Length Measured, 88.2, kg, 03/31/24 10:51:00 CDT, Weight Dosing Start Date: 04/19/24 Stop Date: 06/06/24 Status: Completed linezolid 600 mg oral tablet 1 tab(s), Oral, q12hr, generic please, # 28 tab(s), 0 Refill(s), Start Date: 11/16/18 11:41:00 AM TEST DATA DEVELOPER, Pharmacy: [facility] Start Date: 11/16/18 Stop Date: 12/02/18 Status: Completed Medrol 4 mg oral tablet 1 packet(s), Oral, ONETIME, as directed on package labeling, # 21 tab(s), 0 Refill(s), Start Date: 11/18/22 1:39:00 PM TEST DATA DEVELOPER, Pharmacy: [facility], 173, cm, 11/18/22 13:25:00 TEST DATA DEVELOPER, Height/Length Measured, 86.3, kg, 11/18/22 13:27:00 TEST DATA DEVELOPER, Weight Dosing Start Date: 11/18/22 Stop Date: 03/09/23 Status: Completed metFORMIN 500 mg oral tablet 0.5 tab(s), Oral, BID, # 30 tab(s), 11 Refill(s), Start Date: 04/03/24 11:56:00 AM CDT, Pharmacy: [facility], 173, cm, 03/31/24 10:46:00 CDT, Height/Length Measured, 88.2, kg, 03/31/24 10:51:00 CDT, Weight Dosing Start Date: 04/03/24 Stop Date: 04/19/24 Status: Completed metFORMIN 500 mg oral tablet 0.5 tab(s), Oral, BID, # 30 tab(s), 11 Refill(s), Start Date: 04/19/24 10:19:00 AM CDT, Pharmacy: [facility] #[id number], 173, cm, 03/31/24 10:46:00 CDT, Height/Length Measured, 88.2, kg, 03/31/2410:51:00 CDT, Weight Dosing Start Date: 04/19/24 Stop Date: 06/21/24 Status: Completed metFORMIN 500 mg oral tablet 1 tab(s), Oral, BID, # 180 tab(s), 3 Refill(s), Start Date: 07/07/24 11:58:00 AM CDT, Pharmacy: [facility] #[id number], 173, cm, 07/07/24 9:24:00 CDT, Height/Length Measured, 88.2, kg, 07/07/24 9:25:00 CDT, Weight Dosing Start Date: 07/07/24 Status: Ordered MiraLax oral powder for reconstitution 17 gm, Oral, Daily, Dissolve in water before taking, # 255 gm, 0 Refill(s), Start Date: 05/21/18 10:05:00 AM CDT, Pharmacy: [facility] [id number] Start Date: 05/21/18 Stop Date: 03/31/24 Status: Completed MS Contin 15 mg oral tablet, extended release 2 tab(s), Oral, q12hr, # 28 tab(s), 0 Refill(s), Start Date: 05/21/18 10:04:00 AM CDT, Pharmacy: [facility] [id number] Start Date: 05/21/18 Stop Date: 09/09/18 Status: Completed MS Contin 30 mg oral tablet, extended release 1 tab(s), Oral, q12hr interval, 0 Refill(s), Start Date: 09/12/18 9:49:00 AM CDT Start Date: 09/12/18 Stop Date: 06/16/19 Status: Completed Multi-Day Plus Minerals oral tablet 1 tab(s), Oral, Daily, # 30 tab(s), 0 Refill(s), Start Date: 09/30/22 3:49:00 PM TEST DATA DEVELOPER Start Date: 09/30/22 Stop Date: 06/21/24 Status: Completed Narcan 4 mg/0.1 mL nasal spray 1 spray(s), Nasal, ONETIME, # 2 EA, 11 Refill(s), Start Date: 07/07/24 10:15:00 AM CDT, Pharmacy: [facility] #[id number], 173, cm, 07/07/24 9:24:00 CDT, Height/Length Measured, 88.2, kg, :25:00 CDT, Weight Dosing Start Date: 07/07/24 Stop Date: 07/26/24 Status: Discontinued Narcan 4 mg/0.1 mL nasal spray 1 spray(s), Nasal, ONETIME, # 2 EA, 0 Refill(s), Start Date: 08/25/24 3:51:00 PM CDT, Pharmacy: [id number], 173, cm, 07/26/24 15:14:00 CDT, Height/Length Measured, 88, kg, 08/17/24 7:54:00 CDT, Weight Dosing Start Date: 08/25/24 Status: Ordered oxycodone-acetaminophen 10 mg-325 mg oral tablet 0 Refill(s), Start Date: 11/18/22 1:27:00 PM TEST DATA DEVELOPER Start Date: 11/18/22 Stop Date: 04/09/23 Status: Completed oxyCODONE-acetaminophen 10 mg-325 mg oral tablet 1 tab(s), Oral, q6hr, PRN PRN for pain, 0 Refill(s), Start Date: 09/12/18 9:49:00 AM CDT Start Date: 09/12/18 Stop Date: 09/15/18 Status: Discontinued oxycodone-acetaminophen 5 mg-325 mg oral tablet 1 tab(s), Oral, TID, PRN PRN pain severe 8-10, # 90 tab(s), 0 Refill(s), Start Date: 09/06/24 2:38:00 PM CDT, Pharmacy: [id number], 173, cm, 09/06/24 14:02:00 CDT, Height/Length Measured, 87.9, kg, 09/06/24 14:05:00 CDT, Weight Dosing Start Date: 09/06/24 Stop Date: 09/13/24 Status: Completed oxycodone-acetaminophen 5 mg-325 mg oral tablet 1 tab(s), Oral, TID, PRN PRN pain severe 8-10, FOR: Chronic neck pain, chronic bilateral shoulder pain, chronic low back pain, degenerative disc disease, osteoarthritis and chronic intractable pain.,# 69 tab(s), 0 Refill(s), Start Date: 09/13/24 12:13:00 PM CDT, Pharmacy: [id number], 173, cm, 09/13/24 8:29:00 CDT, Height/Length Measured, 85, kg, 09/13/24 8:32:00 CDT, Weight Dosing Start Date: 09/13/24 Status: Ordered oxycodone-acetaminophen 5 mg-325 mg oral tablet 1 tab(s), Oral, TID, PRN PRN pain moderate 4-7, # 42 tab(s), 0 Refill(s), Start Date: 07/07/24 10:05:00 AM CDT, Pharmacy: [facility] #[id number], 173, cm, 07/07/24 9:24:00 CDT, Height/Length Measured, 88.2, kg, 07/07/24 9:25:00 CDT, Weight Dosing Start Date: 07/07/24 Stop Date: 07/11/24 Status: Discontinued oxycodone-acetaminophen 5 mg-325 mg oral tablet 1 tab(s), Oral, TID, PRN PRN pain severe 8-10, # 90 tab(s), 0 Refill(s), Start Date: 08/25/24 10:49:00 AM CDT, Pharmacy: [id number], 173, cm, 07/26/24 15:14:00 CDT, Height/Length Measured, 88, kg, 08/17/24 7:54:00 CDT, Weight Dosing Start Date: 08/25/24 Stop Date: 09/06/24 Status: Completed Percocet 10/325 oral tablet 1 tab(s), Oral, q4hr interval, 0 Refill(s), Start Date: 05/15/18 10:18:00 PM CDT Start Date: 05/15/18 Stop Date: 05/17/18 Status: Discontinued Percocet 5/325 oral tablet 1 tab(s), Oral, q4hr, PRN PRN for pain, not to exceed 4000 mg acetaminophen per day, # 40 tab(s), 0Refill(s), Start Date: 05/17/18 4:24:00 PM CDT, Pharmacy: [facility] [id number] Start Date: 05/17/18 Stop Date: 09/09/18 Status: Completed Percocet 5/325 oral tablet See Instructions, PRN PRN for pain, 1 tab(s) Oral q6hr not to exceed 4000 mg acetaminophen per day,# 60 tab(s), 0 Refill(s), Start Date: 09/14/18 9:23:00 AM CDT, Pharmacy: [facility] Start Date: 09/14/18 Stop Date: 06/16/19 Status: Completed predniSONE 10 mg oral tablet 3 tab(s), Oral, BID, For inflammation and pain, # 84 tab(s), 0 Refill(s), Start Date: 08/10/24 9:14:00 AM CDT, Pharmacy: [id number], 173, cm, 07/26/24 15:14:00 CDT, Height/Length Measured, 88, kg, 07/26/24 15:24:00 CDT, Weight Dosing Start Date: 08/10/24 Stop Date: 08/25/24 Status: Discontinued predniSONE 10 mg oral tablet 3 tab(s), Oral, BID, For inflammation and pain, # 84 tab(s), 0 Refill(s), Start Date: 07/26/24 3:47:00 PM CDT, [id number] 173, cm, 07/26/24 15:14:00 CDT, Height/Length Measured, [...] Start Date: 05/21/18 10:05:00 AM CDT, Pharmacy: [facility] [id number] Start Date: 05/21/18 Stop Date: 05/31/18 Status: Completed tamsulosin 0.4 mg oral capsule 1 cap(s), Oral, Daily, # 90 cap(s), 3 Refill(s), Start Date: 12/20/18 1:38:00 PM TEST DATA DEVELOPER, Pharmacy: [facility] Start Date: 12/20/18 Stop Date: 09/30/22 Status: Completed tamsulosin 0.4 mg oral capsule 1 cap(s), Oral, Daily, 0 Refill(s), Start Date: 09/09/18 7:57:00 AM CDT Start Date: 09/09/18 Stop Date: 12/20/18 Status: Discontinued traMADol 50 mg oral tablet 1 tab(s), Oral, q4hr interval, PRN PRN as needed for pain, # 12 tab(s), 0 Refill(s), Start Date: 03/03/23 1:54:00 PM CDT, Pharmacy: [facility], 173, cm, 11/18/22 13:25:00 TEST DATA DEVELOPER, Height/Length Measured, 89.5, kg, 03/03/23 12:25:00 CDT, Weight Dosing Start Date: 03/03/23 Stop Date: 03/31/24 Status: Completed vancomycin 1 g intravenous injection IV, q12hr interval, prescribed by Dr Perdue, 0 Refill(s), Start Date: 10/21/18 8:45:00 AM TEST DATA DEVELOPER Start Date: 10/21/18 Stop Date: 11/16/18 Status: Completed Zinc 140 mg (as elemental zinc 50 mg) oral tablet 1 tab(s), Oral, Daily, # 90 tab(s), 0 Refill(s), Start Date: 09/30/22 3:48:00 PM TEST DATA DEVELOPER Start Date: 09/30/22 Stop Date: 06/21/24 Status: Completed Problem List Condition Confirmation Course Effective Dates Status H ealth Status Informant Arthritis of left wrist Confirmed Active Benign essential HTN Confirmed Active Chronic intractable pain Confirmed Active Chronic low back pain Confirmed Active Chronic neck pain Confirmed Active Chronic sinusitis Confirmed Active Multilevel degenerative disc disease Confirmed Active Chronic use of opiate for therapeutic purpose. Confirmed Active Eustachian tube dysfunction Confirmed Active Gait difficulty Confirmed Active History of BPH Confirmed Active History of left hip replacement Confirmed Active History of TIAs Confirmed Active Hyperlipidemia, unspecified Confirmed Active Neuropathy of leg Confirmed Active ULLOA (nonalcoholic steatohepatitis) Confirmed Active Osteoarthritis Confirmed Active Osteoarthritis of carpometacarpal joint of [...] 9 05/16/18 Completed Colonoscopy 10, 11 Comple lobito elbow surgery 12, 13 Comp leted Hip [...] surgical case 9auto-populated from documented surgical case 10several for multiple polyps -has one scheduled November 2018 11Colonoscopy w/ polypectomy 1/23/19 12ORIF left elbow 13LT Elbow surgery from elbow to forearm 14left [id number] procedure 16left 17LT Rotator Cuff Repair 18right 19RT Tendon Repair 20right side 21RT Wrist Surgery- Frzn wrist- 2 screws Social History Social History Type Response Sex Male Patient Care team information Personnel Name: Carlos Enrique Obando MD Address: Address: [address] [place] [address]
--- OUTSIDE RECORDS SUMMARY | 2024-11-23 00:07 | XMS_ITS | Continuity of Care Document ---
Author Organization [facility] Address [address] [facility] [address] [place] [address] Care Team Providers Care Photographic Processor Name Role Phone Carlos Enrique Obando Primary Care Physician [phone] Encounter Date(s): 09/06/24 - 09/06/24 Family Medicine [facility] [address] [place] [address]- Encounter Diagnosis Chronic intractable pain(Discharge Diagnosis) - 09/06/24 Chronic use of opiate for therapeutic purpose.(Discharge Diagnosis) - 09/06/24 Chronic neck pain(Discharge Diagnosis) - 09/06/24 Neuropathy of leg(Discharge Diagnosis) - 09/06/24 Type 2 diabetes mellitus without complications(Discharge Diagnosis) - 09/06/24 Hyperlipidemia, unspecified(Discharge Diagnosis) - 09/06/24 Bilateral shoulder pain(Discharge Diagnosis) - 09/06/24 Chronic low back pain(Discharge Diagnosis) - 09/06/24 Discharge Disposition: 01 Discharged to Home or Self Care Attending Physician: Carlos Enrique Obando MD Referring Physician: Carlos Enrique Obando MD Allergies, Adverse Reactions, Alerts Substance Criticality Severity [...] Start Date: 03/09/23 10:50:00 AM CDT, Pharmacy: [facility], 173, cm, 03/09/23 10:20:00 CDT, Height/Length Measured, 89.5, kg, 03/09/23 10:22:00 CDT, Weight Dosing Start Date: 03/09/23 Stop Date: 04/22/23 Status: Completed amitriptyline 75 mg oral tablet 1 tab(s), Oral, HS, # 90 tab(s), 2 Refill(s), Start Date: 04/22/23 10:25:00 AM CDT, Pharmacy: [facility], 173, cm, 04/09/23 15:48:00 CDT, Height/Length [...] Start Date: 03/09/23 10:48:00 AM CDT, Pharmacy: [facility], 173, cm, 03/09/23 10:20:00 CDT, Height/Length Measured, 89.5, kg, 03/09/23 10:22:00 CDT, Weight Dosing Start Date: 03/09/23 Stop Date: 08/27/23 Status: Completed amLODIPine 5 mg oral tablet 1 tab(s), Oral, Daily, # 90 tab(s), 3 Refill(s), Start Date: 08/27/23 8:41:00 AM CDT, Pharmacy: [facility], 173, cm, 04/09/23 15:48:00 CDT, Height/Length [...] Start Date: 07/26/24 3:47:00 PM CDT, Pharmacy: [facility] #[id number], 173, cm, 07/26/24 15:14:00 CDT, Height/Length Measured, [...] Start Date: 07/07/24 11:58:00 AM CDT, Pharmacy: [facility] #[id number], 173, cm, 07/07/24 9:24:00 CDT, Height/Length Measured, 88.2, kg, 07/07/24 9:25:00 CDT, Weight Dosing Start Date: 07/07/24 Status: Ordered baclofen 10 mg oral tablet 1 tab(s), Oral, TID, # 30 tab(s), 0 Refill(s), Start Date: 03/09/23 10:49:00 AM CDT, Pharmacy: [facility], 173, cm, 03/09/23 10:20:00 CDT, Height/Length Measured, 89.5, kg, 03/09/23 10:22:00 CDT,Weight Dosing Start Date: 03/09/23 Stop Date: 04/22/23 Status: Completed baclofen 10 mg oral tablet 1 tab(s), Oral, TID, # 30 tab(s), 1 Refill(s), Start Date: 04/22/23 11:37:00 AM CDT, [facility], [facility], cm, 04/09/23 15:48:00 CDT, Height/Length Measured, 87.6, kg, 04/09/23 15:50:00 CDT, Weight Dosing Start Date: 04/22/23 Stop Date: 03/31/24 Status: Completed baclofen 10 mg oral tablet 0 Refill(s), Start Date: 11/18/22 1:27:00 PM APPLICATION SOFTWARE DEVELOPER Start Date: 11/18/22 Stop Date: 03/09/23 Status: Discontinued baclofen 10 mg oral tablet 1 tab(s), Oral, TID, PRN PRN for pain, 0 Refill(s), Start Date: 05/15/18 11:15:00 PM CDT Start Date: 05/15/18 Stop Date: 06/16/19 Status: Completed baclofen 10 mg tablet baclofen 10 mg tablet, 1 tab(s), Oral, TID, # 30 tab(s), 2 Refill(s), Pharmacy: [facility], 173, cm, 04/09/23 15:48:00 CDT, Height/Length Measured, 87.6, kg, 04/09/23 15:50:00 CDT, Weight Dosing Start Date: 06/08/23 Stop Date: 03/31/24 Status: Completed baclofen 10 mg tablet baclofen 10 mg tablet, 1 tab(s), Oral, TID, # 30 tab(s), 2 Refill(s), Pharmacy: [facility], 173, cm, 04/09/23 15:48:00 CDT, Height/Length Measured, 87.6, kg, 04/09/23 15:50:00 CDT, Weight Dosing Start Date: 06/18/23 Stop Date: 03/31/24 Status: Completed carisoprodol 250 mg oral tablet 1 tab(s), Oral, BID, # 60 tab(s), 5 Refill(s), Start Date: 07/26/24 3:47:00 PM CDT, Pharmacy: [facility] #[id number], 173, cm, 07/26/24 15:14:00 CDT, Height/Length Measured, [...] 0 Refill(s), Start Date: 11/09/18 6:34:00 PM APPLICATION SOFTWARE DEVELOPER, Pharmacy: [facility] Start Date: 11/09/18 Stop Date: 12/16/18 Status: Completed ciprofloxacin 750 mg oral tablet 1 tab(s), Oral, q12hr, 2h away from dairy, X 14 days, # 28 tab(s), 2 Refill(s), Start Date: 182:21:00 PM APPLICATION SOFTWARE DEVELOPER, Pharmacy: [facility] Start Date: 09/19/18 Stop Date: 11/09/18 [...] 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 daily 3 months 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 PEN TESTER, # 1 boxes, 0 Refill(s), 03/16/19 6:45:00 [...] 3 Refill(s), Start Date: 12/20/18 1:37:00 PM APPLICATION SOFTWARE DEVELOPER, Pharmacy: [facility] Start Date: 12/20/18 Stop [...] Start Date: 04/03/24 11:55:00 AM CDT, Pharmacy: [facility], 173, cm, 03/31/24 10:46:00 CDT, Height/Length [...] Start Date: 04/19/24 10:19:00 AM CDT, Pharmacy: [facility] #[id number], 173, cm, 03/31/24 10:46:00 CDT, Height/Length Measured, 88.2, kg, 03/31/24 10:51:00 CDT, Weight Dosing Start Date: 04/19/24 Stop Date: 06/21/24 Status: Completed gabapentin 300 mg oral capsule 1 cap(s), Oral, TID, # 90 cap(s), 11 Refill(s), Start Date: 07/07/24 10:05:00 AM CDT, Pharmacy: [facility] #[id number], 173, cm, 07/07/24 9:24:00 CDT, Height/Length Measured, 88.2, kg, 07/07/24 9:25:00 CDT, Weight Dosing Start Date: 07/07/24 Stop Date: 07/11/24 Status: Discontinued hydrocodone-acetaminophen 5 mg-325 mg oral tablet See Instructions, 1/2 to 1 tab(s) Oral TID, # 60 tab(s), 0 Refill(s), Start Date: 07/11/24 2:53:00 PM CDT, Pharmacy: [id number], 173, cm, 07/07/24 9:24:00 CDT, Height/Length Measured,88.2, kg, 07/07/24 9:25:00 CDT, Weight Dosing Start Date: 07/11/24 Stop Date: 07/26/24 Status: Discontinued ibuprofen 600 mg oral tablet 1 tab(s), Oral, QID, PRN PRN for pain, with food or milk, # 30 tab(s), 0 Refill(s), Start Date: 03/03/23 1:53:00 PM CDT, Pharmacy: [facility], 173, cm, 11/18/22 13:25:00 APPLICATION SOFTWARE DEVELOPER, Height/Length Measured, 89.5, kg, 03/03/23 12:25:00 [...] Start Date: 07/07/24 10:05:00 AM CDT, Pharmacy: [facility] #[id number], 173, cm, 07/07/24 9:24:00 CDT, Height/Length Measured, [...] Start Date: 03/31/24 11:26:00 AM CDT, Pharmacy: [facility], 173, cm, 03/31/24 10:46:00 CDT, Height/Length Measured, 88.2, kg, 03/31/24 10:51:00 CDT, Weight Dosing Start Date: 03/31/24 Stop Date: 04/11/24 Status: Completed levoFLOXacin 500 mg oral tablet 1 tab(s), Oral, Daily, For chronic recurrent sinusitis, X 10 days, # 10 tab(s), 0 Refill(s), Start Date: 04/11/24 3:29:00 PM CDT, Pharmacy: [facility], 173, cm, 03/31/24 10:46:00 CDT, Height/Length Measured, 88.2, kg, 03/31/24 10:51:00 CDT, Weight Dosing Start Date: 04/11/24 Stop Date: 04/19/24 Status: Completed levoFLOXacin 500 mg oral tablet 1 tab(s), Oral, Daily, For chronic recurrent sinusitis, # 10 tab(s), 0 Refill(s), Start Date: 04/19/24 10:19:00 AM CDT, Pharmacy: [facility] #[id number], 173, cm, 03/31/24 10:46:00 CDT, Height/Length Measured, 88.2, kg, 03/31/24 10:51:00 CDT, Weight Dosing Start Date: 04/19/24 Stop Date: 06/06/24 Status: Completed linezolid 600 mg oral tablet 1 tab(s), Oral, q12hr, generic please, # 28 tab(s), 0 Refill(s), Start Date: 11/16/18 11:41:00 AM APPLICATION SOFTWARE DEVELOPER, Pharmacy: [facility] Start Date: 11/16/18 Stop Date: 12/02/18 Status: Completed Medrol 4 mg oral tablet 1 packet(s), Oral, ONETIME, as directed on package labeling, # 21 tab(s), 0 Refill(s), Start Date: 11/18/22 1:39:00 PM APPLICATION SOFTWARE DEVELOPER, Pharmacy: [facility], 173, cm, 11/18/22 13:25:00 APPLICATION SOFTWARE DEVELOPER, Height/Length Measured, 86.3, kg, 11/18/22 13:27:00 APPLICATION SOFTWARE DEVELOPER, Weight Dosing Start Date: 11/18/22 Stop Date: 03/09/23 Status: Completed metFORMIN 500 mg oral tablet 0.5 tab(s), Oral, BID, # 30 tab(s), 11 Refill(s), Start Date: 04/03/24 11:56:00 AM CDT, Pharmacy: [facility], 173, cm, 03/31/24 10:46:00 CDT, Height/Length Measured, 88.2, kg, 03/31/24 10:51:00 CDT, Weight Dosing Start Date: 04/03/24 Stop Date: 04/19/24 Status: Completed metFORMIN 500 mg oral tablet 0.5 tab(s), Oral, BID, # 30 tab(s), 11 Refill(s), Start Date: 04/19/24 10:19:00 AM CDT, Pharmacy: [facility] #[id number], 173, cm, 03/31/24 10:46:00 CDT, Height/Length Measured, 88.2, kg, 03/31/2410:51:00 CDT, Weight Dosing Start Date: 04/19/24 Stop Date: 06/21/24 Status: Completed metFORMIN 500 mg oral tablet 1 tab(s), Oral, BID, # 180 tab(s), 3 Refill(s), Start Date: 07/07/24 11:58:00 AM CDT, Pharmacy: [facility] #[id number], 173, cm, 07/07/24 9:24:00 CDT, Height/Length Measured, 88.2, kg, 07/07/24 9:25:00 CDT, Weight Dosing Start Date: 07/07/24 Status: Ordered MiraLax oral powder for reconstitution 17 gm, Oral, Daily, Dissolve in water before taking, # 255 gm, 0 Refill(s), Start Date: 05/21/18 10:05:00 AM CDT, Pharmacy: [id number] Start Date: 05/21/18 Stop Date: 03/31/24 Status: Completed MS Contin 15 mg oral tablet, extended release 2 tab(s), Oral, q12hr, # 28 tab(s), 0 Refill(s), Start Date: 05/21/18 10:04:00 AM CDT, Pharmacy: [id number] Start Date: 05/21/18 Stop Date: 09/09/18 Status: Completed MS Contin 30 mg oral tablet, extended release 1 tab(s), Oral, q12hr interval, 0 Refill(s), Start Date: 09/12/18 9:49:00 AM CDT Start Date: 09/12/18 Stop Date: 06/16/19 Status: Completed Multi-Day Plus Minerals oral tablet 1 tab(s), Oral, Daily, # 30 tab(s), 0 Refill(s), Start Date: 09/30/22 3:49:00 PM APPLICATION SOFTWARE DEVELOPER Start Date: 09/30/22 Stop Date: 06/21/24 Status: Completed Narcan 4 mg/0.1 mL nasal spray 1 spray(s), Nasal, ONETIME, # 2 EA, 11 Refill(s), Start Date: 07/07/24 10:15:00 AM CDT, Pharmacy: [facility] #[id number], 173, cm, 07/07/24 9:24:00 CDT, Height/Length Measured, 88.2, kg, :25:00 CDT, Weight Dosing Start Date: 07/07/24 Stop Date: 07/26/24 Status: Discontinued Narcan 4 mg/0.1 mL nasal spray 1 spray(s), Nasal, ONETIME, # 2 EA, 0 Refill(s), Start Date: 08/25/24 3:51:00 PM CDT, Pharmacy: [id number], 173, cm, 07/26/24 15:14:00 CDT, Height/Length Measured, 88, kg, 08/17/24 7:54:00 CDT, Weight Dosing Start Date: 08/25/24 Status: Ordered oxycodone-acetaminophen 10 mg-325 mg oral tablet 0 Refill(s), Start Date: 11/18/22 1:27:00 PM APPLICATION SOFTWARE DEVELOPER Start Date: 11/18/22 Stop Date: 04/09/23 [...] Start Date: 09/06/24 2:38:00 PM CDT, Pharmacy: [id number], 173, cm, 09/06/24 14:02:00 CDT, Height/Length Measured, 87.9, kg, 09/06/24 14:05:00 CDT, Weight Dosing Start Date: 09/06/24 Status: Ordered oxycodone-acetaminophen 5 mg-325 mg oral tablet 1 tab(s), Oral, TID, PRN PRN pain moderate 4-7, # 42 tab(s), 0 Refill(s), Start Date: 07/07/24 10:05:00 AM CDT, Pharmacy: [facility] #[id number], 173, cm, 07/07/24 9:24:00 CDT, Height/Length Measured, 88.2, kg, 07/07/24 9:25:00 CDT, Weight Dosing Start Date: 07/07/24 Stop Date: 07/11/24 Status: Discontinued oxycodone-acetaminophen 5 mg-325 mg oral tablet 1 tab(s), Oral, TID, PRN PRN pain severe 8-10, # 90 tab(s), 0 Refill(s), Start Date: 08/25/24 10:49:00 AM CDT, Pharmacy: [facility], 173, cm, 07/26/24 15:14:00 CDT, [...] Start Date: 05/17/18 4:24:00 PM CDT, Pharmacy: [id number] Start Date: 05/17/18 Stop Date: 09/09/18 Status: Completed Percocet 5/325 oral tablet See Instructions, PRN PRN for pain, 1 tab(s) Oral q6hr not to exceed 4000 mg acetaminophen per day,# 60 tab(s), 0 Refill(s), Start Date: 09/14/18 9:23:00 AM CDT, Pharmacy: [facility] Start Date: 09/14/18 Stop Date: 06/16/19 Status: Completed predniSONE 10 mg oral tablet 3 tab(s), Oral, BID, For inflammation and pain, # 84 tab(s), 0 Refill(s), Start Date: 08/10/24 9:14:00 AM CDT, Pharmacy: [id number], 173, cm, 07/26/24 15:14:00 CDT, Height/Length Measured, 88, kg, 07/26/24 15:24:00 CDT, Weight Dosing Start Date: 08/10/24 Stop Date: 08/25/24 Status: Discontinued predniSONE 10 mg oral tablet 3 tab(s), Oral, BID, For inflammation and pain, # 84 tab(s), 0 Refill(s), Start Date: 07/26/24 3:47:00 PM CDT, Pharmacy: [facility] #[id number], 173, cm, 07/26/24 15:14:00 CDT, Height/Length Measured, [...] Start Date: 05/21/18 10:05:00 AM CDT, Pharmacy: [id number] Start Date: 05/21/18 Stop Date: 05/31/18 Status: Completed tamsulosin 0.4 mg oral capsule 1 cap(s), Oral, Daily, # 90 cap(s), 3 Refill(s), Start Date: 12/20/18 1:38:00 PM APPLICATION SOFTWARE DEVELOPER, Pharmacy: [facility] Start Date: 12/20/18 Stop Date: 09/30/22 Status: Completed tamsulosin 0.4 mg oral capsule 1 cap(s), Oral, Daily, 0 Refill(s), Start Date: 09/09/18 7:57:00 AM CDT Start Date: 09/09/18 Stop Date: 12/20/18 Status: Discontinued traMADol 50 mg oral tablet 1 tab(s), Oral, q4hr interval, PRN PRN as needed for pain, # 12 tab(s), 0 Refill(s), Start Date: 03/03/23 1:54:00 PM CDT, Pharmacy: [facility], 173, cm, 11/18/22 13:25:00 APPLICATION SOFTWARE DEVELOPER, Height/Length Measured, 89.5, kg, 03/03/23 12:25:00 CDT, Weight Dosing Start Date: 03/03/23 Stop Date: 03/31/24 Status: Completed vancomycin 1 g intravenous injection IV, q12hr interval, prescribed by Dr Predue, 0 Refill(s), Start Date: 10/21/18 8:45:00 AM APPLICATION SOFTWARE DEVELOPER Start Date: 10/21/18 Stop Date: 11/16/18 Status: Completed Zinc 140 mg (as elemental zinc 50 mg) oral tablet 1 tab(s), Oral, Daily, # 90 tab(s), 0 Refill(s), Start Date: 09/30/22 3:48:00 PM APPLICATION SOFTWARE DEVELOPER Start Date: 09/30/22 Stop Date: 06/21/24 Status: Completed Problem List Condition Confirmation Course Effective Dates Status H ealth Status Informant Arthritis of left wrist Confirmed Active Benign essential HTN Confirmed Active Chronic intractable pain Confirmed Active Chronic low back pain Confirmed Active Chronic neck pain Confirmed Active Chronic sinusitis Confirmed Active Chronic use of opiate for [...] one scheduled November 2018 11Colonoscopy w/ polypectomy 12/07/18 12ORIF left elbow 13LT Elbow surgery from elbow to forearm 14left [id number] procedure 16left 17LT Rotator Cuff Repair 18right 19RT Tendon Repair 20right side 21RT Wrist Surgery- Frzn wrist- 2 screws Results Most recent to oldest [Reference Range]: 1 Weight Measured 87.9 kg (09/06/24 2:02 PM) Height/Length Measured 173 cm (09/06/24 2:02 PM) Body Mass Index Measured 29.37 kg/m2 (09/06/24 2:02 PM) Systolic Blood Pressure [90-120 mmHg] 10 8 mmHg (09/06/24 2:02 PM) Diastolic Blood Pressure [60-80 mmHg] 64 mmHg (09/06/24 2:02 PM) Respiratory Rate [14-20 br/min] 14 br/mi n (09/06/24 2:02 PM) Vital Signs Most recent to oldest [Reference Range]: 1 Peripheral Pulse Rate [60-100 bpm] 83 bp m (09/06/24 2:02 PM) Respiratory Rate [14-20 br/min] 14 br/mi n (09/06/24 2:02 PM) Blood Pressure [90-120/60-80 mmHg] 108/6 4mmHg (09/06/24 2:02 PM) SpO2 [95 %] 97 % (09/06/24 2:02 PM) Mean Arterial Pressure, Cuff [70-110 mmH g] 79 mmHg (09/06/24 2:02 PM) Height/Length Measured 173 cm (09/06/24 2:02 PM) Weight Dosing 87.90 kg 1 (09/06/24 2:05 PM) Weight Measured 87.9 kg (09/06/24 2:02 PM) BSA Measured 2.02 m2 (09/06/24 2:02 PM) Body Mass Index Measured 29.37 kg/m2 (09/06/24 2:02 PM) 1Result Comment: This result was because the dosing weight was either not entered or it is >30 days old. This result is based off: Weight Measured September 06, 2024 14:02:00 CDT by Eboni Ibrahim RN Social History Social History Type Response Sex Male Patient Care team information Personnel Name: Carlos Enrique Obando MD Address: Address: [address] [place] [address]
--- OUTSIDE RECORDS SUMMARY | 2024-11-23 00:07 | XMS_ITS | Continuity of Care Document ---
[facility] Organization [facility] Address [address] [facility] [address] [place] [address] Care Team Providers Care Career Resource Specialist Name Role Phone Carlos Enrique Obando Primary Care Physician [phone] Encounter Date(s): 08/25/24 - 08/25/24 Family Medicine [facility] [address] [place] [address]- Discharge Disposition: 01 Discharged to Home or [...] Start Date: 04/22/23 10:25:00 AM CDT, Pharmacy: [facility], 173, cm, 04/09/23 15:48:00 CDT, Height/Length [...] Start Date: 03/09/23 10:48:00 AM CDT, Pharmacy: [facility], 173, cm, 03/09/23 10:20:00 CDT, Height/Length Measured, 89.5, kg, 03/09/23 10:22:00 CDT, Weight Dosing Start Date: 03/09/23 Stop Date: 08/27/23 Status: Completed amLODIPine 5 mg oral tablet 1 tab(s), Oral, Daily, # 90 tab(s), 3 Refill(s), Start Date: 08/27/23 8:41:00 AM CDT, Pharmacy: [facility], 173, cm, 04/09/23 15:48:00 CDT, Height/Length [...] Start Date: 07/26/24 3:47:00 PM CDT, Pharmacy: [facility] #[id number], 173, cm, 07/26/24 15:14:00 CDT, Height/Length Measured, [...] Start Date: 07/07/24 11:58:00 AM CDT, Pharmacy: [facility] #[id number], 173, cm, 07/07/24 9:24:00 CDT, Height/Length Measured, 88.2, kg, 07/07/24 9:25:00 CDT, Weight Dosing Start Date: 07/07/24 Status: Ordered baclofen 10 mg oral tablet 1 tab(s), Oral, TID, # 30 tab(s), 0 Refill(s), Start Date: 03/09/23 10:49:00 AM CDT, Pharmacy: [facility], 173, cm, 03/09/23 10:20:00 CDT, Height/Length Measured, 89.5, kg, 03/09/23 10:22:00 CDT,Weight Dosing Start Date: 03/09/23 Stop Date: 04/22/23 Status: Completed baclofen 10 mg oral tablet 1 tab(s), Oral, TID, # 30 tab(s), 1 Refill(s), Start Date: 04/22/23 11:37:00 AM CDT, Pharmacy: [facility], 173, cm, 04/09/23 15:48:00 CDT, Height/Length Measured, 87.6, kg, 04/09/23 15:50:00 CDT, Weight Dosing Start Date: 04/22/23 Stop Date: 03/31/24 Status: Completed baclofen 10 mg oral tablet 0 Refill(s), Start Date: 11/18/22 1:27:00 PM [employer] [employer] Start Date: 11/18/22 Stop Date: 03/09/23 Status: Discontinued baclofen 10 mg oral tablet 1 tab(s), Oral, TID, PRN PRN for pain, 0 Refill(s), Start Date: 05/15/18 11:15:00 PM CDT Start Date: 05/15/18 Stop Date: 06/16/19 Status: Completed baclofen 10 mg tablet baclofen 10 mg tablet, 1 tab(s), Oral, TID, # 30 tab(s), 2 Refill(s), Pharmacy: [facility], 173, cm, 04/09/23 15:48:00 CDT, Height/Length Measured, 87.6, kg, 04/09/23 15:50:00 CDT, Weight Dosing Start Date: 06/08/23 Stop Date: 03/31/24 Status: Completed baclofen 10 mg tablet baclofen 10 mg tablet, 1 tab(s), Oral, TID, # 30 tab(s), 2 Refill(s), Pharmacy: [facility], 173, cm, 04/09/23 15:48:00 CDT, Height/Length Measured, 87.6, kg, 04/09/23 15:50:00 CDT, Weight Dosing Start Date: 06/18/23 Stop Date: 03/31/24 Status: Completed carisoprodol 250 mg oral tablet 1 tab(s), Oral, BID, # 60 tab(s), 5 Refill(s), Start Date: 07/26/24 3:47:00 PM CDT, Pharmacy: [facility] #[id number], 173, cm, 07/26/24 15:14:00 CDT, Height/Length Measured, [...] 0 Refill(s), Start Date: 11/09/18 6:34:00 PM [employer], Pharmacy: [facility] Start Date: 11/09/18 Stop Date: 12/16/18 Status: Completed ciprofloxacin 750 mg oral tablet 1 tab(s), Oral, q12hr, 2h away from dairy, X 14 days, # 28 tab(s), 2 Refill(s), Start Date: :21:00 PM [employer], Pharmacy: [facility] Start Date: 09/19/18 Stop Date: 11/09/18 [...] 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 daily 3 months 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, # 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, 0 Refill(s), 03/16/19 6:45:00 [...] 3 Refill(s), Start Date: 12/20/18 1:37:00 PM [employer], Pharmacy: [facility] Start Date: 12/20/18 Stop Date: [...] Start Date: 04/03/24 11:55:00 AM CDT, Pharmacy: [facility], 173, cm, 03/31/24 10:46:00 CDT, Height/Length [...] Start Date: 04/19/24 10:19:00 AM CDT, Pharmacy: [facility] #[id number], 173, cm, 03/31/24 10:46:00 CDT, Height/Length Measured, 88.2, kg, 03/31/24 10:51:00 CDT, Weight Dosing Start Date: 04/19/24 Stop Date: 06/21/24 Status: Completed gabapentin 300 mg oral capsule 1 cap(s), Oral, TID, # 90 cap(s), 11 Refill(s), Start Date: 07/07/24 10:05:00 AM CDT, Pharmacy: [facility] #[id number], 173, cm, 07/07/24 9:24:00 CDT, Height/Length Measured, 88.2, kg, 07/07/24 9:25:00 CDT, Weight Dosing Start Date: 07/07/24 Stop Date: 07/11/24 Status: Discontinued hydrocodone-acetaminophen 5 mg-325 mg oral tablet See Instructions, 1/2 to 1 tab(s) Oral TID, # 60 tab(s), 0 Refill(s), Start Date: 07/11/24 2:53:00 PM CDT, Pharmacy: [facility] #[id number], 173, cm, 07/07/24 9:24:00 CDT, Height/Length Measured,88.2, kg, 07/07/24 9:25:00 CDT, Weight Dosing Start Date: 07/11/24 Stop Date: 07/26/24 Status: Discontinued ibuprofen 600 mg oral tablet 1 tab(s), Oral, QID, PRN PRN for pain, with food or milk, # 30 tab(s), 0 Refill(s), Start Date: 03/03/23 1:53:00 PM CDT, Pharmacy: [facility], 173, cm, 11/18/22 13:25:00 [employer], Height/Length Measured, 89.5, kg, 03/03/23 12:25:00 CDT, [...] Start Date: 07/07/24 10:05:00 AM CDT, Pharm[facility]: [facility][id number], 173, cm, 07/07/24 9:24:00 CDT, Height/Length Measured, [...] Start Date: 03/31/24 11:26:00 AM CDT, Pharmacy: [facility], 173, cm, 03/31/24 10:46:00 CDT, Height/Length Measured, 88.2, kg, 03/31/24 10:51:00 CDT, Weight Dosing Start Date: 03/31/24 Stop Date: 04/11/24 Status: Completed levoFLOXacin 500 mg oral tablet 1 tab(s), Oral, Daily, For chronic recurrent sinusitis, X 10 days, # 10 tab(s), 0 Refill(s), Start Date: 04/11/24 3:29:00 PM CDT, Pharmacy: [facility], 173, cm, 03/31/24 10:46:00 CDT, Height/Length Measured, 88.2, kg, 03/31/24 10:51:00 CDT, Weight Dosing Start Date: 04/11/24 Stop Date: 04/19/24 Status: Completed levoFLOXacin 500 mg oral tablet 1 tab(s), Oral, Daily, For chronic recurrent sinusitis, # 10 tab(s), 0 Refill(s), Start Date: 04/19/24 10:19:00 AM CDT, Pharmacy: [facility] #[id number], 173, cm, 03/31/24 10:46:00 CDT, Height/Length Measured, 88.2, kg, 03/31/24 10:51:00 CDT, Weight Dosing Start Date: 04/19/24 Stop Date: 06/06/24 Status: Completed linezolid 600 mg oral tablet 1 tab(s), Oral, q12hr, generic please, # 28 tab(s), 0 Refill(s), Start Date: 11/16/18 11:41:00 AM [employer], Pharmacy: [facility] Start Date: 11/16/18 Stop Date: 12/02/18 Status: Completed Medrol 4 mg oral tablet 1 packet(s), Oral, ONETIME, as directed on package labeling, # 21 tab(s), 0 Refill(s), Start Date: 11/18/22 1:39:00 PM [employer], Pharmacy: [facility], 173, cm, 11/18/22 13:25:00 [employer], Height/Length Measured, 86.3, kg, 11/18/22 13:27:00 [employer], Weight Dosing Start Date: 11/18/22 Stop Date: 03/09/23 Status: Completed metFORMIN 500 mg oral tablet 0.5 tab(s), Oral, BID, # 30 tab(s), 11 Refill(s), Start Date: 04/03/24 11:56:00 AM CDT, Pharmacy: [facility], 173, cm, 03/31/24 10:46:00 CDT, Height/Length Measured, 88.2, kg, 03/31/24 10:51:00 CDT, Weight Dosing Start Date: 04/03/24 Stop Date: 04/19/24 Status: Completed metFORMIN 500 mg oral tablet 0.5 tab(s), Oral, BID, # 30 tab(s), 11 Refill(s), Start Date: 04/19/24 10:19:00 AM CDT, Pharmacy: [facility] #[id number], 173, cm, 03/31/24 10:46:00 CDT, Height/Length Measured, 88.2, kg, 03/31/2410:51:00 CDT, Weight Dosing Start Date: 04/19/24 Stop Date: 06/21/24 Status: Completed metFORMIN 500 mg oral tablet 1 tab(s), Oral, BID, # 180 tab(s), 3 Refill(s), Start Date: 07/07/24 11:58:00 AM CDT, Pharmacy: [facility] #[id number], 173, cm, 07/07/24 9:24:00 CDT, Height/Length Measured, 88.2, kg, 07/07/24 9:25:00 CDT, Weight Dosing Start Date: 07/07/24 Status: Ordered MiraLax oral powder for reconstitution 17 gm, Oral, Daily, Dissolve in water before taking, # 255 gm, 0 Refill(s), Start Date: 05/21/18 10:05:00 AM CDT, Pharmacy: [facility] [id number] Start Date: 05/21/18 Stop Date: 03/31/24 Status: Completed MS Contin 15 mg oral tablet, extended release 2 tab(s), Oral, q12hr, # 28 tab(s), 0 Refill(s), Start Date: 05/21/18 10:04:00 AM CDT, Pharmacy: [facility] [id number] Start Date: 05/21/18 Stop Date: 09/09/18 Status: Completed MS Contin 30 mg oral tablet, extended release 1 tab(s), Oral, q12hr interval, 0 Refill(s), Start Date: 09/12/18 9:49:00 AM CDT Start Date: 09/12/18 Stop Date: 06/16/19 Status: Completed Multi-Day Plus Minerals oral tablet 1 tab(s), Oral, Daily, # 30 tab(s), 0 Refill(s), Start Date: 09/30/22 3:49:00 PM [employer] Start Date: 09/30/22 Stop Date: 06/21/24 Status: Completed Narcan 4 mg/0.1 mL nasal spray 1 spray(s), Nasal, ONETIME, # 2 EA, 11 Refill(s), Start Date: 07/07/24 10:15:00 AM CDT, Pharmacy: [facility] #[id number], 173, cm, 07/07/24 9:24:00 CDT, Height/Length Measured, 88.2, kg, :25:00 CDT, Weight Dosing Start Date: 07/07/24 Stop Date: 07/26/24 Status: Discontinued Narcan 4 mg/0.1 mL nasal spray 1 spray(s), Nasal, ONETIME, # 2 EA, 0 Refill(s), Start Date: 08/25/24 3:51:00 PM CDT, Pharmacy: [id number], 173, cm, 07/26/24 15:14:00 CDT, Height/Length Measured, 88, kg, 08/17/24 7:54:00 CDT, Weight Dosing Start Date: 08/25/24 Status: Ordered oxycodone-acetaminophen 10 mg-325 mg oral tablet 0 Refill(s), Start Date: 11/18/22 1:27:00 PM [employer] Start Date: 11/18/22 Stop Date: 04/09/23 Status: [...] Start Date: 07/07/24 10:05:00 AM CDT, Pharmacy: [facility] #[id number], 173, cm, 07/07/24 9:24:00 CDT, Height/Length Measured, 88.2, kg, 07/07/24 9:25:00 CDT, Weight Dosing Start Date: 07/07/24 Stop Date: 07/11/24 Status: Discontinued oxycodone-acetaminophen 5 mg-325 mg oral tablet 1 tab(s), Oral, TID, PRN PRN pain severe 8-10, # 90 tab(s), 0 Refill(s), Start Date: 08/25/24 10:49:00 AM CDT, Pharmacy: [id number], 173, cm, 07/26/24 15:14:00 CDT, [...] Start Date: 05/17/18 4:24:00 PM CDT, Pharmacy: [facility] [id number] Start Date: 05/17/18 Stop Date: 09/09/18 Status: Completed Percocet 5/325 oral tablet See Instructions, PRN PRN for pain, 1 tab(s) Oral q6hr not to exceed 4000 mg acetaminophen per day,# 60 tab(s), 0 Refill(s), Start Date: 09/14/18 9:23:00 AM CDT, Pharmacy: [facility] Start Date: 09/14/18 Stop Date: 06/16/19 Status: Completed predniSONE 10 mg oral tablet 3 tab(s), Oral, BID, For inflammation and pain, # 84 tab(s), 0 Refill(s), Start Date: 08/10/24 9:14:00 AM CDT, Pharmacy: [id number], 173, cm, 07/26/24 15:14:00 CDT, Height/Length Measured, 88, kg, 07/26/24 15:24:00 CDT, Weight Dosing Start Date: 08/10/24 Stop Date: 08/25/24 Status: Discontinued predniSONE 10 mg oral tablet 3 tab(s), Oral, BID, For inflammation and pain, # 84 tab(s), 0 Refill(s), Start Date: 07/26/24 3:47:00 PM CDT, Pharmacy: [facility] #[id number], 173, cm, 07/26/24 15:14:00 CDT, Height/Length Measured, [...] Start Date: 05/21/18 10:05:00 AM CDT, Pharmacy: [facility] [id number] Start Date: 05/21/18 Stop Date: 05/31/18 Status: Completed tamsulosin 0.4 mg oral capsule 1 cap(s), Oral, Daily, # 90 cap(s), 3 Refill(s), Start Date: 12/20/18 1:38:00 PM [employer], Pharmacy: [facility] Start Date: 12/20/18 Stop Date: 09/30/22 Status: Completed tamsulosin 0.4 mg oral capsule 1 cap(s), Oral, Daily, 0 Refill(s), Start Date: 09/09/18 7:57:00 AM CDT Start Date: 09/09/18 Stop Date: 12/20/18 Status: Discontinued traMADol 50 mg oral tablet 1 tab(s), Oral, q4hr interval, PRN PRN as needed for pain, # 12 tab(s), 0 Refill(s), Start Date: 03/03/23 1:54:00 PM CDT, Pharmacy: [facility], 173, cm, 11/18/22 13:25:00 [employer], Height/Length Measured, 89.5, kg, 03/03/23 12:25:00 CDT, Weight Dosing Start Date: 03/03/23 Stop Date: 03/31/24 Status: Completed vancomycin 1 g intravenous injection IV, q12hr interval, prescribed by Dr Perdue, 0 Refill(s), Start Date: 10/21/18 8:45:00 AM [employer] Start Date: 10/21/18 Stop Date: 11/16/18 Status: Completed Zinc 140 mg (as elemental zinc 50 mg) oral tablet 1 tab(s), Oral, Daily, # 90 tab(s), 0 Refill(s), Start Date: 09/30/22 3:48:00 PM [employer] Start Date: 09/30/22 Stop Date: 06/21/24 Status: [...] Elbow surgery from elbow to forearm 14left [id number] procedure 16left 17LT Rotator Cuff Repair 18right 19RT Tendon Repair 20right side 21RT Wrist Surgery- Frzn wrist- 2 screws Social History Social History Type Response Sex Male Patient Care team information Personnel Name: Carlos Enrique Obando MD Address: Address: [address] [place] [address]
--- OUTSIDE RECORDS SUMMARY | 2024-11-23 00:07 | XMS_ITS | Continuity of Care Document ---
Author Organization [facility] Address [address] [facility] [address] [place] [address] Care Team Providers Care Baseball Inspector Name Role Phone Carlos Enrique Obando Primary Care Physician [phone] Encounter Date(s): 09/13/24 - 09/13/24 Family Medicine [facility] [address] [place] [address]- Discharge Disposition: 01 Discharged to Home or [...] Start Date: 04/22/23 10:25:00 AM CDT, Pharmacy: [facility], 173, cm, 04/09/23 15:48:00 CDT, Height/Length [...] Start Date: 03/09/23 10:48:00 AM CDT, Pharmacy: [facility], 173, cm, 03/09/23 10:20:00 CDT, Height/Length Measured, 89.5, kg, 03/09/23 10:22:00 CDT, Weight Dosing Start Date: 03/09/23 Stop Date: 08/27/23 Status: Completed amLODIPine 5 mg oral tablet 1 tab(s), Oral, Daily, # 90 tab(s), 3 Refill(s), Start Date: 08/27/23 8:41:00 AM CDT, Pharmacy: [facility], 173, cm, 04/09/23 15:48:00 CDT, Height/Length Measured, [...] Start Date: 07/26/24 3:47:00 PM CDT, Pharmacy: [facility] #[id number], 173, cm, 07/26/24 15:14:00 CDT, Height/Length Measured, [...] Start Date: 07/07/24 11:58:00 AM CDT, Pharmacy: [facility] #[id number], 173, cm, 07/07/24 9:24:00 CDT, Height/Length Measured, 88.2, kg, 07/07/24 9:25:00 CDT, Weight Dosing Start Date: 07/07/24 Status: Ordered baclofen 10 mg oral tablet 1 tab(s), Oral, TID, # 30 tab(s), 0 Refill(s), Start Date: 03/09/23 10:49:00 AM CDT, Pharmacy: [facility], 173, cm, 03/09/23 10:20:00 CDT, Height/Length Measured, 89.5, kg, 03/09/23 10:22:00 CDT,Weight Dosing Start Date: 03/09/23 Stop Date: 04/22/23 Status: Completed baclofen 10 mg oral tablet 1 tab(s), Oral, TID, # 30 tab(s), 1 Refill(s), Start Date: 04/22/23 11:37:00 AM CDT, Pharmacy: [facility], 173, cm, 04/09/23 15:48:00 CDT, Height/Length Measured, 87.6, kg, 04/09/23 15:50:00 CDT, Weight Dosing Start Date: 04/22/23 Stop Date: 03/31/24 Status: Completed baclofen 10 mg oral tablet 0 Refill(s), Start Date: 11/18/22 1:27:00 PM [employer] Start Date: 11/18/22 Stop Date: 03/09/23 Status: Discontinued baclofen 10 mg oral tablet 1 tab(s), Oral, TID, PRN PRN for pain, 0 Refill(s), Start Date: 05/15/18 11:15:00 PM CDT Start Date: 05/15/18 Stop Date: 06/16/19 Status: Completed baclofen 10 mg tablet baclofen 10 mg tablet, 1 tab(s), Oral, TID, # 30 tab(s), 2 Refill(s), Pharmacy: [facility], 173, cm, 04/09/23 15:48:00 CDT, Height/Length Measured, 87.6, kg, 04/09/23 15:50:00 CDT, Weight Dosing Start Date: 06/08/23 Stop Date: 03/31/24 Status: Completed baclofen 10 mg tablet baclofen 10 mg tablet, 1 tab(s), Oral, TID, # 30 tab(s), 2 Refill(s), Pharmacy: [facility], 173, cm, 04/09/23 15:48:00 CDT, Height/Length Measured, 87.6, kg, 04/09/23 15:50:00 CDT, Weight Dosing Start Date: 06/18/23 Stop Date: 03/31/24 Status: Completed carisoprodol 250 mg oral tablet 1 tab(s), Oral, BID, # 60 tab(s), 5 Refill(s), Start Date: 07/26/24 3:47:00 PM CDT, Pharmacy: [facility] #[id number], 173, cm, 07/26/24 15:14:00 CDT, Height/Length Measured, [...] 0 Refill(s), Start Date: 11/09/18 6:34:00 PM [employer], Pharmacy: [facility] Start Date: 11/09/18 Stop Date: 12/16/18 Status: Completed ciprofloxacin 750 mg oral tablet 1 tab(s), Oral, q12hr, 2h away from dairy, X 14 days, # 28 tab(s), 2 Refill(s), Start Date: :21:00 PM [employer], Pharmacy: [facility] Start Date: 09/19/18 Stop Date: 11/09/18 [...] 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 daily 3 months 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 Start Date: 12/20/18 Stop Date: 09/30/22 [...] Start Date: 04/03/24 11:55:00 AM CDT, Pharmacy: [facility], 173, cm, 03/31/24 10:46:00 CDT, Height/Length Measured, [...] Start Date: 04/19/24 10:19:00 AM CDT, Pharmacy: [facility] #[id number], 173, cm, 03/31/24 10:46:00 CDT, Height/Length Measured, 88.2, kg, 03/31/24 10:51:00 CDT, Weight Dosing Start Date: 04/19/24 Stop Date: 06/21/24 Status: Completed gabapentin 300 mg oral capsule 1 cap(s), Oral, TID, # 90 cap(s), 11 Refill(s), Start Date: 07/07/24 10:05:00 AM CDT, Pharmacy: [facility] #[id number], 173, cm, 07/07/24 9:24:00 CDT, Height/Length Measured, 88.2, kg, 07/07/24 9:25:00 CDT, Weight Dosing Start Date: 07/07/24 Stop Date: 07/11/24 Status: Discontinued hydrocodone-acetaminophen 5 mg-325 mg oral tablet See Instructions, 1/2 to 1 tab(s) Oral TID, # 60 tab(s), 0 Refill(s), Start Date: 07/11/24 2:53:00 PM CDT, Pharmacy: [facility] #[id number], 173, cm, 07/07/24 9:24:00 CDT, Height/Length Measured,88.2, kg, 07/07/24 9:25:00 CDT, Weight Dosing Start Date: 07/11/24 Stop Date: 07/26/24 Status: Discontinued ibuprofen 600 mg oral tablet 1 tab(s), Oral, QID, PRN PRN for pain, with food or milk, # 30 tab(s), 0 Refill(s), Start Date: 03/03/23 1:53:00 PM CDT, Pharmacy: [facility], 173, cm, 11/18/22 13:25:00 [employer], Height/Length Measured, 89.5, kg, 03/03/23 12:25:00 CDT, [...] Start Date: 07/07/24 10:05:00 AM CDT, [id number], 173, cm, 07/07/24 9:24:00 CDT, Height/Length Measured, [...] Start Date: 03/31/24 11:26:00 AM CDT, Pharmacy: [facility], 173, cm, 03/31/24 10:46:00 CDT, Height/Length Measured, 88.2, kg, 03/31/24 10:51:00 CDT, Weight Dosing Start Date: 03/31/24 Stop Date: 04/11/24 Status: Completed levoFLOXacin 500 mg oral tablet 1 tab(s), Oral, Daily, For chronic recurrent sinusitis, X 10 days, # 10 tab(s), 0 Refill(s), Start Date: 04/11/24 3:29:00 PM CDT, Pharmacy: [facility], 173, cm, 03/31/24 10:46:00 CDT, Height/Length Measured, 88.2, kg, 03/31/24 10:51:00 CDT, Weight Dosing Start Date: 04/11/24 Stop Date: 04/19/24 Status: Completed levoFLOXacin 500 mg oral tablet 1 tab(s), Oral, Daily, For chronic recurrent sinusitis, # 10 tab(s), 0 Refill(s), Start Date: 04/19/24 10:19:00 AM CDT, Pharmacy: [facility] #[id number], 173, cm, 03/31/24 10:46:00 CDT, Height/Length Measured, 88.2, kg, 03/31/24 10:51:00 CDT, Weight Dosing Start Date: 04/19/24 Stop Date: 06/06/24 Status: Completed linezolid 600 mg oral tablet 1 tab(s), Oral, q12hr, generic please, # 28 tab(s), 0 Refill(s), Start Date: 11/16/18 11:41:00 AM [employer], Pharmacy: [facility] Start Date: 11/16/18 Stop Date: 12/02/18 Status: Completed Medrol 4 mg oral tablet 1 packet(s), Oral, ONETIME, as directed on package labeling, # 21 tab(s), 0 Refill(s), Start Date: 11/18/22 1:39:00 PM [employer], Pharmacy: [facility], 173, cm, 11/18/22 13:25:00 [employer], Height/Length Measured, 86.3, kg, 11/18/22 13:27:00 [employer], Weight Dosing Start Date: 11/18/22 Stop Date: 03/09/23 Status: Completed metFORMIN 500 mg oral tablet 0.5 tab(s), Oral, BID, # 30 tab(s), 11 Refill(s), Start Date: 04/03/24 11:56:00 AM CDT, Pharmacy: [facility], 173, cm, 03/31/24 10:46:00 CDT, Height/Length Measured, 88.2, kg, 03/31/24 10:51:00 CDT, Weight Dosing Start Date: 04/03/24 Stop Date: 04/19/24 Status: Completed metFORMIN 500 mg oral tablet 0.5 tab(s), Oral, BID, # 30 tab(s), 11 Refill(s), Start Date: 04/19/24 10:19:00 AM CDT, Pharmacy: [facility] #[id number], 173, cm, 03/31/24 10:46:00 CDT, Height/Length Measured, 88.2, kg, 03/31/2410:51:00 CDT, Weight Dosing Start Date: 04/19/24 Stop Date: 06/21/24 Status: Completed metFORMIN 500 mg oral tablet 1 tab(s), Oral, BID, # 180 tab(s), 3 Refill(s), Start Date: 07/07/24 11:58:00 AM CDT, Pharmacy: [facility] #[id number], 173, cm, 07/07/24 9:24:00 CDT, Height/Length Measured, 88.2, kg, 07/07/24 9:25:00 CDT, Weight Dosing Start Date: 07/07/24 Status: Ordered MiraLax oral powder for reconstitution 17 gm, Oral, Daily, Dissolve in water before taking, # 255 gm, 0 Refill(s), Start Date: 05/21/18 10:05:00 AM CDT, Pharmacy: [id number] Start Date: 05/21/18 Stop Date: 03/31/24 Status: Completed MS Contin 15 mg oral tablet, extended release 2 tab(s), Oral, q12hr, # 28 tab(s), 0 Refill(s), Start Date: 05/21/18 10:04:00 AM CDT, Pharmacy: [id number] Start Date: 05/21/18 Stop Date: 09/09/18 Status: Completed MS Contin 30 mg oral tablet, extended release 1 tab(s), Oral, q12hr interval, 0 Refill(s), Start Date: 09/12/18 9:49:00 AM CDT Start Date: 09/12/18 Stop Date: 06/16/19 Status: Completed Multi-Day Plus Minerals oral tablet 1 tab(s), Oral, Daily, # 30 tab(s), 0 Refill(s), Start Date: 09/30/22 3:49:00 PM [employer] Start Date: 09/30/22 Stop Date: 06/21/24 Status: Completed Narcan 4 mg/0.1 mL nasal spray 1 spray(s), Nasal, ONETIME, # 2 EA, 11 Refill(s), Start Date: 07/07/24 10:15:00 AM CDT, Pharmacy: [facility] #[id number], 173, cm, 07/07/24 9:24:00 CDT, Height/Length Measured, 88.2, kg, :25:00 CDT, Weight Dosing Start Date: 07/07/24 Stop Date: 07/26/24 Status: Discontinued Narcan 4 mg/0.1 mL nasal spray 1 spray(s), Nasal, ONETIME, # 2 EA, 0 Refill(s), Start Date: 08/25/24 3:51:00 PM CDT, Pharmacy: [id number], 173, cm, 07/26/24 15:14:00 CDT, Height/Length Measured, 88, kg, 08/17/24 7:54:00 CDT, Weight Dosing Start Date: 08/25/24 Status: Ordered oxycodone-acetaminophen 10 mg-325 mg oral tablet 0 Refill(s), Start Date: 11/18/22 1:27:00 PM [employer] Start Date: 11/18/22 Stop Date: 04/09/23 Status: [...] Start Date: 09/06/24 2:38:00 PM CDT, Pharmacy: [id number], 173, cm, 09/06/24 [...] Start Date: 09/13/24 12:13:00 PM CDT, Pharmacy: [id number], 173, cm, 09/13/24 8:29:00 CDT, Height/Length Measured, 85, kg, 09/13/24 8:32:00 CDT, Weight Dosing Start Date: 09/13/24 Status: Ordered oxycodone-acetaminophen 5 mg-325 mg oral tablet 1 tab(s), Oral, TID, PRN PRN pain moderate 4-7, # 42 tab(s), 0 Refill(s), Start Date: 07/07/24 10:05:00 AM CDT, Pharmacy: [facility] #[id number], 173, cm, 07/07/24 9:24:00 CDT, Height/Length Measured, 88.2, kg, 07/07/24 9:25:00 CDT, Weight Dosing Start Date: 07/07/24 Stop Date: 07/11/24 Status: Discontinued oxycodone-acetaminophen 5 mg-325 mg oral tablet 1 tab(s), Oral, TID, PRN PRN pain severe 8-10, # 90 tab(s), 0 Refill(s), Start Date: 08/25/24 10:49:00 AM CDT, Pharmacy: [id number], 173, cm, 07/26/24 [...] Start Date: 05/17/18 4:24:00 PM CDT, Pharmacy: [facility] [id number] Start Date: 05/17/18 Stop Date: 09/09/18 Status: Completed Percocet 5/325 oral tablet See Instructions, PRN PRN for pain, 1 tab(s) Oral q6hr not to exceed 4000 mg acetaminophen per day,# 60 tab(s), 0 Refill(s), Start Date: 09/14/18 9:23:00 AM CDT, Pharmacy: [facility] Start Date: 09/14/18 Stop Date: 06/16/19 Status: Completed predniSONE 10 mg oral tablet 3 tab(s), Oral, BID, For inflammation and pain, # 84 tab(s), 0 Refill(s), Start Date: 08/10/24 9:14:00 AM CDT, Pharmacy: [id number], 173, cm, 07/26/24 15:14:00 CDT, Height/Length Measured, 88, kg, 07/26/24 15:24:00 CDT, Weight Dosing Start Date: 08/10/24 Stop Date: 08/25/24 Status: Discontinued predniSONE 10 mg oral tablet 3 tab(s), Oral, BID, For inflammation and pain, # 84 tab(s), 0 Refill(s), Start Date: 07/26/24 3:47:00 PM CDT, Pharmacy: [facility] #[id number], 173, cm, 07/26/24 15:14:00 CDT, Height/Length Measured, [...] [facility] [id number] Start Date: 05/21/18 Stop Date: 05/31/18 Status: Completed tamsulosin 0.4 mg oral capsule 1 cap(s), Oral, Daily, # 90 cap(s), 3 Refill(s), Start Date: 12/20/18 1:38:00 PM [employer], Pharmacy: [facility] Start Date: 12/20/18 Stop Date: 09/30/22 Status: Completed tamsulosin 0.4 mg oral capsule 1 cap(s), Oral, Daily, 0 Refill(s), Start Date: 09/09/18 7:57:00 AM CDT Start Date: 09/09/18 Stop Date: 12/20/18 Status: Discontinued traMADol 50 mg oral tablet 1 tab(s), Oral, q4hr interval, PRN PRN as needed for pain, # 12 tab(s), 0 Refill(s), Start Date: 03/03/23 1:54:00 PM CDT, Pharmacy: [facility], 173, cm, 11/18/22 13:25:00 [employer], Height/Length Measured, 89.5, kg, 03/03/23 12:25:00 CDT, Weight Dosing Start Date: 03/03/23 Stop Date: 03/31/24 Status: Completed vancomycin 1 g intravenous injection IV, q12hr interval, prescribed by Dr Perdue, 0 Refill(s), Start Date: 10/21/18 8:45:00 AM [employer] Start Date: 10/21/18 Stop Date: 11/16/18 Status: Completed Zinc 140 mg (as elemental zinc 50 mg) oral tablet 1 tab(s), Oral, Daily, # 90 tab(s), 0 Refill(s), Start Date: 09/30/22 3:48:00 PM [employer] Start Date: 09/30/22 Stop Date: 06/21/24 Status: [...] Elbow surgery from elbow to forearm 14left [id number] procedure 16left 17LT Rotator Cuff Repair 18right 19RT Tendon Repair 20right side 21RT Wrist Surgery- Frzn wrist- 2 screws Social History Social History Type Response Sex Male Patient Care team information Personnel Name: Carlos Enrique Obando MD Address: Address: [address] [place] [address]
--- OUTSIDE RECORDS SUMMARY | 2024-11-23 00:07 | XMS_ITS | Continuity of Care Document ---
Author Organization [facility] Address [address] [place] [address] Care Team Providers Care Wild Life Photographer Name Role Phone Carlos Enrique Obando Primary Care Physician Encounter Date(s): 07/31/24 - 09/13/24 [facility] [address] [place], [place] [address] Encounter Diagnosis Low back pain, unspecified(Final) - Sacroiliitis, not elsewhere classified(Final) - Discharge Disposition: 01 Discharged to Home or Self Care Attending Physician: Garfield Florez MD Admitting Physician: Garfield Florez MD Allergies, Adverse Reactions, Alerts Substance Criticality [...] Start Date: 04/22/23 10:25:00 AM CDT, Pharmacy: [facility], 173, cm, 04/09/23 15:48:00 CDT, Height/Length Measured, [...] Start Date: 03/09/23 10:48:00 AM CDT, Pharmacy: [facility], 173, cm, 03/09/23 10:20:00 CDT, Height/Length Measured, 89.5, kg, 03/09/23 10:22:00 CDT, Weight Dosing Start Date: 03/09/23 Stop Date: 08/27/23 Status: Completed amLODIPine 5 mg oral tablet 1 tab(s), Oral, Daily, # 90 tab(s), 3 Refill(s), Start Date: 08/27/23 8:41:00 AM CDT, Pharmacy: [facility], 173, cm, 04/09/23 15:48:00 CDT, Height/Length Measured, [...] Start Date: 07/26/24 3:47:00 PM CDT, Pharmacy: [facility] #[id number], 173, cm, 07/26/24 15:14:00 CDT, Height/Length Measured, [...] Start Date: 07/07/24 11:58:00 AM CDT, Pharmacy: [facility] #[id number], 173, cm, 07/07/24 9:24:00 CDT, Height/Length Measured, 88.2, kg, 07/07/24 9:25:00 CDT, Weight Dosing Start Date: 07/07/24 Status: Ordered baclofen 10 mg oral tablet 1 tab(s), Oral, TID, # 30 tab(s), 0 Refill(s), Start Date: 03/09/23 10:49:00 AM CDT, Pharmacy: [facility], 173, cm, 03/09/23 10:20:00 CDT, Height/Length Measured, 89.5, kg, 03/09/23 10:22:00 CDT,Weight Dosing Start Date: 03/09/23 Stop Date: 04/22/23 Status: Completed baclofen 10 mg oral tablet 1 tab(s), Oral, TID, # 30 tab(s), 1 Refill(s), Start Date: 04/22/23 11:37:00 AM CDT, Pharmacy: [facility], 173, cm, 04/09/23 15:48:00 CDT, Height/Length Measured, 87.6, kg, 04/09/23 15:50:00 CDT, Weight Dosing Start Date: 04/22/23 Stop Date: 03/31/24 Status: Completed baclofen 10 mg oral tablet 0 Refill(s), Start Date: 11/18/22 1:27:00 PM ASSISTANT STORE MANAGER Start Date: 11/18/22 Stop Date: 03/09/23 Status: Discontinued baclofen 10 mg oral tablet 1 tab(s), Oral, TID, PRN PRN for pain, 0 Refill(s), Start Date: 05/15/18 11:15:00 PM CDT Start Date: 05/15/18 Stop Date: 06/16/19 Status: Completed baclofen 10 mg tablet baclofen 10 mg tablet, 1 tab(s), Oral, TID, # 30 tab(s), 2 Refill(s), Pharmacy: [facility], 173, cm, 04/09/23 15:48:00 CDT, Height/Length Measured, 87.6, kg, 04/09/23 15:50:00 CDT, Weight Dosing Start Date: 06/08/23 Stop Date: 03/31/24 Status: Completed baclofen 10 mg tablet baclofen 10 mg tablet, 1 tab(s), Oral, TID, # 30 tab(s), 2 Refill(s), Pharmacy: [facility], 173, cm, 04/09/23 15:48:00 CDT, Height/Length Measured, 87.6, kg, 04/09/23 15:50:00 CDT, Weight Dosing Start Date: 06/18/23 Stop Date: 03/31/24 Status: Completed carisoprodol 250 mg oral tablet 1 tab(s), Oral, BID, # 60 tab(s), 5 Refill(s), Start Date: 07/26/24 3:47:00 PM CDT, Pharmacy: [facility] #[id number], 173, cm, 07/26/24 15:14:00 CDT, Height/Length Measured, [...] 0 Refill(s), Start Date: 11/09/18 6:34:00 PM ASSISTANT STORE MANAGER, Pharmacy: [facility] Start Date: 11/09/18 Stop Date: 12/16/18 Status: Completed ciprofloxacin 750 mg oral tablet 1 tab(s), Oral, q12hr, 2h away from dairy, X 14 days, # 28 tab(s), 2 Refill(s), Start Date: :21:00 PM ASSISTANT STORE MANAGER, Pharmacy: [facility] Start Date: 09/19/18 Stop Date: 11/09/18 [...] 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 daily 3 months 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, # 1 boxes, 0 Refill(s), 03/16/19 6:45:00 [...] 3 Refill(s), Start Date: 12/20/18 1:37:00 PM ASSISTANT STORE MANAGER, Pharmacy: [facility] Start Date: 12/20/18 Stop Date: [...] Start Date: 04/03/24 11:55:00 AM CDT, Pharmacy: [facility], 173, cm, 03/31/24 10:46:00 CDT, Height/Length Measured, [...] Start Date: 04/19/24 10:19:00 AM CDT, Pharmacy: [facility] #[id number], 173, cm, 03/31/24 10:46:00 CDT, Height/Length Measured, 88.2, kg, 03/31/24 10:51:00 CDT, Weight Dosing Start Date: 04/19/24 Stop Date: 06/21/24 Status: Completed gabapentin 300 mg oral capsule 1 cap(s), Oral, TID, # 90 cap(s), 11 Refill(s), Start Date: 07/07/24 10:05:00 AM CDT, Pharmacy: [facility] #[id number], 173, cm, 07/07/24 9:24:00 CDT, Height/Length Measured, 88.2, kg, 07/07/24 9:25:00 CDT, Weight Dosing Start Date: 07/07/24 Stop Date: 07/11/24 Status: Discontinued hydrocodone-acetaminophen 5 mg-325 mg oral tablet See Instructions, 1/2 to 1 tab(s) Oral TID, # 60 tab(s), 0 Refill(s), Start Date: 07/11/24 2:53:00 PM CDT, Pharmacy: [facility] #[id number], 173, cm, 07/07/24 9:24:00 CDT, Height/Length Measured,88.2, kg, 07/07/24 9:25:00 CDT, Weight Dosing Start Date: 07/11/24 Stop Date: 07/26/24 Status: Discontinued ibuprofen 600 mg oral tablet 1 tab(s), Oral, QID, PRN PRN for pain, with food or milk, # 30 tab(s), 0 Refill(s), Start Date: 03/03/23 1:53:00 PM CDT, Pharmacy: [facility], 173, cm, 11/18/22 13:25:00 ASSISTANT STORE MANAGER, Height/Length Measured, 89.5, kg, 03/03/23 12:25:00 [...] Start Date: 07/07/24 10:05:00 AM CDT, [id number], 173, cm, 07/07/24 9:24:00 CDT, Height/Length Measured, [...] Start Date: 03/31/24 11:26:00 AM CDT, Pharmacy: [facility], 173, cm, 03/31/24 10:46:00 CDT, Height/Length Measured, 88.2, kg, 03/31/24 10:51:00 CDT, Weight Dosing Start Date: 03/31/24 Stop Date: 04/11/24 Status: Completed levoFLOXacin 500 mg oral tablet 1 tab(s), Oral, Daily, For chronic recurrent sinusitis, X 10 days, # 10 tab(s), 0 Refill(s), Start Date: 04/11/24 3:29:00 PM CDT, Pharmacy: [facility], 173, cm, 03/31/24 10:46:00 CDT, Height/Length Measured, 88.2, kg, 03/31/24 10:51:00 CDT, Weight Dosing Start Date: 04/11/24 Stop Date: 04/19/24 Status: Completed levoFLOXacin 500 mg oral tablet 1 tab(s), Oral, Daily, For chronic recurrent sinusitis, # 10 tab(s), 0 Refill(s), Start Date: 04/19/24 10:19:00 AM CDT, Pharmacy: [facility] #[id number], 173, cm, 03/31/24 10:46:00 CDT, Height/Length Measured, 88.2, kg, 03/31/24 10:51:00 CDT, Weight Dosing Start Date: 04/19/24 Stop Date: 06/06/24 Status: Completed linezolid 600 mg oral tablet 1 tab(s), Oral, q12hr, generic please, # 28 tab(s), 0 Refill(s), Start Date: 11/16/18 11:41:00 AM ASSISTANT STORE MANAGER, Pharmacy: [facility] Start Date: 11/16/18 Stop Date: 12/02/18 Status: Completed Medrol 4 mg oral tablet 1 packet(s), Oral, ONETIME, as directed on package labeling, # 21 tab(s), 0 Refill(s), Start Date: 11/18/22 1:39:00 PM ASSISTANT STORE MANAGER, Pharmacy: [facility], 173, cm, 11/18/22 13:25:00 ASSISTANT STORE MANAGER, Height/Length Measured, 86.3, kg, 11/18/22 13:27:00 ASSISTANT STORE MANAGER, Weight Dosing Start Date: 11/18/22 Stop Date: 03/09/23 Status: Completed metFORMIN 500 mg oral tablet 0.5 tab(s), Oral, BID, # 30 tab(s), 11 Refill(s), Start Date: 04/03/24 11:56:00 AM CDT, Pharmacy: [facility], 173, cm, 03/31/24 10:46:00 CDT, Height/Length Measured, 88.2, kg, 03/31/24 10:51:00 CDT, Weight Dosing Start Date: 04/03/24 Stop Date: 04/19/24 Status: Completed metFORMIN 500 mg oral tablet 0.5 tab(s), Oral, BID, # 30 tab(s), 11 Refill(s), Start Date: 04/19/24 10:19:00 AM CDT, [id number], 173, cm, 03/31/24 10:46:00 CDT, Height/Length Measured, 88.2, kg, 03/31/2410:51:00 CDT, Weight Dosing Start Date: 04/19/24 Stop Date: 06/21/24 Status: Completed metFORMIN 500 mg oral tablet 1 tab(s), Oral, BID, # 180 tab(s), 3 Refill(s), Start Date: 07/07/24 11:58:00 AM CDT, Pharmacy: [facility] #[id number], 173, cm, 07/07/24 9:24:00 CDT, Height/Length Measured, 88.2, kg, 07/07/24 9:25:00 CDT, Weight Dosing Start Date: 07/07/24 Status: Ordered MiraLax oral powder for reconstitution 17 gm, Oral, Daily, Dissolve in water before taking, # 255 gm, 0 Refill(s), Start Date: 05/21/18 10:05:00 AM CDT, Pharmacy: [facility] [id number] Start Date: 05/21/18 Stop Date: 03/31/24 Status: Completed MS Contin 15 mg oral tablet, extended release 2 tab(s), Oral, q12hr, # 28 tab(s), 0 Refill(s), Start Date: 05/21/18 10:04:00 AM CDT, Pharmacy: [facility] [id number] Start Date: 05/21/18 Stop Date: 09/09/18 Status: Completed MS Contin 30 mg oral tablet, extended release 1 tab(s), Oral, q12hr interval, 0 Refill(s), Start Date: 09/12/18 9:49:00 AM CDT Start Date: 09/12/18 Stop Date: 06/16/19 Status: Completed Multi-Day Plus Minerals oral tablet 1 tab(s), Oral, Daily, # 30 tab(s), 0 Refill(s), Start Date: 09/30/22 3:49:00 PM ASSISTANT STORE MANAGER Start Date: 09/30/22 Stop Date: 06/21/24 Status: Completed Narcan 4 mg/0.1 mL nasal spray 1 spray(s), Nasal, ONETIME, # 2 EA, 11 Refill(s), Start Date: 07/07/24 10:15:00 AM CDT, Pharmacy: [facility] #[id number], 173, cm, 07/07/24 9:24:00 CDT, Height/Length Measured, 88.2, kg, 249:25:00 CDT, Weight Dosing Start Date: 07/07/24 Stop Date: 07/26/24 Status: Discontinued Narcan 4 mg/0.1 mL nasal spray 1 spray(s), Nasal, ONETIME, # 2 EA, 0 Refill(s), Start Date: 08/25/24 3:51:00 PM CDT, Pharmacy: [id number], 173, cm, 07/26/24 15:14:00 CDT, Height/Length Measured, 88, kg, 08/17/24 7:54:00 CDT, Weight Dosing Start Date: 08/25/24 Status: Ordered oxycodone-acetaminophen 10 mg-325 mg oral tablet 0 Refill(s), Start Date: 11/18/22 1:27:00 PM ASSISTANT STORE MANAGER Start Date: 11/18/22 Stop Date: 04/09/23 [...] Start Date: 09/06/24 2:38:00 PM CDT, Pharmacy: [id number], 173, cm, 09/06/24 14:02:00 CDT, [...] Start Date: 09/13/24 12:13:00 PM CDT, Pharmacy: [id number], 173, cm, 09/13/24 8:29:00 CDT, Height/Length Measured, 85, kg, 09/13/24 8:32:00 CDT, Weight Dosing Start Date: 09/13/24 Status: Ordered oxycodone-acetaminophen 5 mg-325 mg oral tablet 1 tab(s), Oral, TID, PRN PRN pain moderate 4-7, # 42 tab(s), 0 Refill(s), Start Date: 07/07/24 10:05:00 AM CDT, Pharmacy: [facility] #[id number], 173, cm, 07/07/24 9:24:00 CDT, Height/Length Measured, 88.2, kg, 07/07/24 9:25:00 CDT, Weight Dosing Start Date: 07/07/24 Stop Date: 07/11/24 Status: Discontinued oxycodone-acetaminophen 5 mg-325 mg oral tablet 1 tab(s), Oral, TID, PRN PRN pain severe 8-10, # 90 tab(s), 0 Refill(s), Start Date: 08/25/24 10:49:00 AM CDT, Pharmacy: [id number], 173, cm, 07/26/24 15:14:00 [...] Start Date: 05/17/18 4:24:00 PM CDT, Pharmacy: [facility] [id number] Start Date: 05/17/18 Stop Date: 09/09/18 Status: Completed Percocet 5/325 oral tablet See Instructions, PRN PRN for pain, 1 tab(s) Oral q6hr not to exceed 4000 mg acetaminophen per day,# 60 tab(s), 0 Refill(s), Start Date: 09/14/18 9:23:00 AM CDT, Pharmacy: [facility] Start Date: 09/14/18 Stop Date: 06/16/19 Status: Completed predniSONE 10 mg oral tablet 3 tab(s), Oral, BID, For inflammation and pain, # 84 tab(s), 0 Refill(s), Start Date: 08/10/24 9:14:00 AM CDT, Pharmacy: [id number], 173, cm, 07/26/24 15:14:00 CDT, Height/Length Measured, 88, kg, 07/26/24 15:24:00 CDT, Weight Dosing Start Date: 08/10/24 Stop Date: 08/25/24 Status: Discontinued predniSONE 10 mg oral tablet 3 tab(s), Oral, BID, For inflammation and pain, # 84 tab(s), 0 Refill(s), Start Date: 07/26/24 3:47:00 PM CDT, Pharmacy: [facility] #[id number], 173, cm, 07/26/24 15:14:00 CDT, Height/Length Measured, [...] Start Date: 05/21/18 10:05:00 AM CDT, Pharmacy: [facility] [id number] Start Date: 05/21/18 Stop Date: 05/31/18 Status: Completed tamsulosin 0.4 mg oral capsule 1 cap(s), Oral, Daily, # 90 cap(s), 3 Refill(s), Start Date: 12/20/18 1:38:00 PM ASSISTANT STORE MANAGER, Pharmacy: [facility] Start Date: 12/20/18 Stop Date: 09/30/22 Status: Completed tamsulosin 0.4 mg oral capsule 1 cap(s), Oral, Daily, 0 Refill(s), Start Date: 09/09/18 7:57:00 AM CDT Start Date: 09/09/18 Stop Date: 12/20/18 Status: Discontinued traMADol 50 mg oral tablet 1 tab(s), Oral, q4hr interval, PRN PRN as needed for pain, # 12 tab(s), 0 Refill(s), Start Date: 03/03/23 1:54:00 PM CDT, Pharmacy: [facility], 173, cm, 11/18/22 13:25:00 ASSISTANT STORE MANAGER, Height/Length Measured, 89.5, kg, 03/03/23 12:25:00 CDT, Weight Dosing Start Date: 03/03/23 Stop Date: 03/31/24 Status: Completed vancomycin 1 g intravenous injection IV, q12hr interval, prescribed by Dr Perdue, 0 Refill(s), Start Date: 10/21/18 8:45:00 AM ASSISTANT STORE MANAGER Start Date: 10/21/18 Stop Date: 11/16/18 Status: Completed Zinc 140 mg (as elemental zinc 50 mg) oral tablet 1 tab(s), Oral, Daily, # 90 tab(s), 0 Refill(s), Start Date: 09/30/22 3:48:00 PM ASSISTANT STORE MANAGER Start Date: 09/30/22 Stop Date: 06/21/24 Status: [...] Elbow surgery from elbow to forearm 14left [id number] procedure 16left 17LT Rotator Cuff Repair 18right 19RT Tendon Repair 20right side 21RT Wrist Surgery- Frzn wrist- 2 screws Social History Social History Type Response Sex Male Patient Care team information Personnel Name: Carlos Enrique Obando MD Address: Address: [address] [place] [address]
--- OUTSIDE RECORDS SUMMARY | 2024-11-23 00:07 | XMS_ITS | Continuity of Care Document ---
Author Organization [facility] Address [address] [facility] [address] [place] [address] Care Team Providers Care Vet Assistant Name Role Phone Carlos Enrique Obando Primary Care Physician Encounter Date(s): 07/19/24 - 07/19/24 [facility] [address] [place] [address]- Encounter Diagnosis Lumbar radiculopathy(Discharge Diagnosis) - 07/13/24 Discharge Disposition: 01 Discharged to Home or Self Care Attending Physician: Garfield Florez MD Referring Physician: Carlos Enrique Obando MD Allergies, Adverse Reactions, Alerts Substance Criticality Severity Reaction Reaction Severity Status gabapentin Headache Active Lyrica Lethargy Confusion Active Immunizations Given [...] Start Date: 04/22/23 10:25:00 AM CDT, Pharmacy: [facility], 173, cm, 04/09/23 15:48:00 CDT, Height/Length [...] 03/31/24 Stop Date: 06/21/24 Status: Completed amLODIPine 5 mg oral tablet 1 tab(s), Oral, Daily, # 90 tab(s), 1 Refill(s), Start Date: 03/09/23 10:48:00 AM CDT, Pharmacy: [facility], 173, cm, 03/09/23 10:20:00 CDT, Height/Length Measured, 89.5, kg, 03/09/23 10:22:00 CDT, Weight Dosing Start Date: 03/09/23 Stop Date: 08/27/23 Status: Completed amLODIPine 5 mg oral tablet 1 tab(s), Oral, Daily, # 90 tab(s), 3 Refill(s), Start Date: 08/27/23 8:41:00 AM CDT, Pharmacy: [facility], 173, cm, 04/09/23 15:48:00 CDT, Height/Length Measured, 87.6, kg, 04/09/23 15:50:00 CDT, Weight Dosing Start Date: 08/27/23 Stop Date: 03/31/24 Status: Completed aspirin 81 mg oral delayed release tablet 1 tab(s), Oral, Daily, # 30 tab(s), 0 Refill(s), Start Date: 03/09/23 10:18:00 AM CDT Start Date: 03/09/23 Stop Date: 06/21/24 Status: Completed atorvastatin 20 mg oral tablet 1 tab(s), Oral, Daily, # 30 tab(s), 0 Refill(s), Start Date: 03/31/24 10:45:00 AM CDT Start Date: 03/31/24 Stop Date: 06/21/24 Status: Completed atorvastatin 20 mg oral tablet 1 tab(s), Oral, Daily, # 90 tab(s), 3 Refill(s), Start Date: 07/07/24 11:58:00 AM CDT, Pharmacy: [facility] #[id number], 173, cm, 07/07/24 9:24:00 CDT, Height/Length Measured, 88.2, kg, 07/07/24 9:25:00 CDT, Weight Dosing Start Date: 07/07/24 Status: Ordered baclofen 10 mg oral tablet 1 tab(s), Oral, TID, # 30 tab(s), 0 Refill(s), Start Date: 03/09/23 10:49:00 AM CDT, [facility], 173, cm, 03/09/23 10:20:00 CDT, Height/Length Measured, 89.5, kg, 03/09/23 10:22:00 CDT,Weight Dosing Start Date: 03/09/23 Stop Date: 04/22/23 Status: Completed baclofen 10 mg oral tablet 1 tab(s), Oral, TID, # 30 tab(s), 1 Refill(s), Start Date: 04/22/23 11:37:00 AM CDT, Pharmacy: [facility], 173, cm, 04/09/23 15:48:00 CDT, Height/Length Measured, 87.6, kg, 04/09/23 15:50:00 CDT, Weight Dosing Start Date: 04/22/23 Stop Date: 03/31/24 Status: Completed baclofen 10 mg oral tablet 0 Refill(s), Start Date: 11/18/22 1:27:00 PM CAGE FIGHTER Start Date: 11/18/22 Stop Date: 03/09/23 Status: Discontinued baclofen 10 mg oral tablet 1 tab(s), Oral, TID, PRN PRN for pain, 0 Refill(s), Start Date: 05/15/18 11:15:00 PM CDT Start Date: 05/15/18 Stop Date: 06/16/19 Status: Completed baclofen 10 mg tablet baclofen 10 mg tablet, 1 tab(s), Oral, TID, # 30 tab(s), 2 Refill(s), Pharmacy: [facility], 173, cm, 04/09/23 15:48:00 CDT, Height/Length Measured, 87.6, kg, 04/09/23 15:50:00 CDT, Weight Dosing Start Date: 06/08/23 Stop Date: 03/31/24 Status: Completed baclofen 10 mg tablet baclofen 10 mg tablet, 1 tab(s), Oral, TID, # 30 tab(s), 2 Refill(s), Pharmacy: [facility], 173, cm, 04/09/23 15:48:00 CDT, Height/Length [...] 0 Refill(s), Start Date: 11/09/18 6:34:00 PM CAGE FIGHTER, Pharmacy: [facility] Start Date: 11/09/18 Stop Date: 12/16/18 Status: Completed ciprofloxacin 750 mg oral tablet 1 tab(s), Oral, q12hr, 2h away from dairy, X 14 days, # 28 tab(s), 2 Refill(s), Start Date: :21:00 PM CAGE FIGHTER, Pharmacy: [facility] Start Date: 09/19/18 Stop Date: 11/09/18 [...] 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 daily 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, # 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, 0 Refill(s), 03/16/19 6:45:00 [...] 3 Refill(s), Start Date: 12/20/18 1:37:00 PM CAGE FIGHTER, Pharmacy: [facility] Start Date: 12/20/18 Stop Date: 09/30/22 Status: Completed finasteride 5 mg oral tablet 1 tab(s), Oral, Daily, # 30 tab(s), 0 Refill(s), Start Date: 03/31/24 10:43:00 AM CDT Start Date: 03/31/24 Stop Date: 06/21/24 Status: Completed fluticasone 50 mcg/inh nasal spray 2 spray(s), Nasal, BID, X 42 days, # 16 gm, 11 Refill(s), Start Date: 04/03/24 11:55:00 AM CDT, Pharmacy: [facility], 173, cm, 03/31/24 10:46:00 CDT, Height/Length [...] Start Date: 04/19/24 10:19:00 AM CDT, Pharmacy: [facility] #[id number], 173, cm, 03/31/24 10:46:00 CDT, Height/Length Measured, 88.2, kg, 03/31/24 10:51:00 CDT, Weight Dosing Start Date: 04/19/24 Stop Date: 06/21/24 Status: Completed gabapentin 300 mg oral capsule 1 cap(s), Oral, TID, # 90 cap(s), 11 Refill(s), Start Date: 07/07/24 10:05:00 AM CDT, Pharmacy: [facility] #[id number], 173, cm, 07/07/24 9:24:00 CDT, Height/Length Measured, 88.2, kg, 07/07/24 9:25:00 CDT, Weight Dosing Start Date: 07/07/24 Stop Date: 07/11/24 Status: Discontinued hydrocodone-acetaminophen 5 mg-325 mg oral tablet See Instructions, 1/2 to 1 tab(s) Oral TID, # 60 tab(s), 0 Refill(s), Start Date: 07/11/24 2:53:00 PM CDT, Pharmacy: [facility] #[id number], 173, cm, 07/07/24 9:24:00 CDT, Height/Length Measured,88.2, kg, 07/07/24 9:25:00 CDT, Weight Dosing Start Date: 07/11/24 Status: Ordered ibuprofen 600 mg oral tablet 1 tab(s), Oral, QID, PRN PRN for pain, with food or milk, # 30 tab(s), 0 Refill(s), Start Date: 03/03/23 1:53:00 PM CDT, Pharmacy: [facility], 173, cm, 11/18/22 13:25:00 CAGE FIGHTER, Height/Length Measured, 89.5, kg, 03/03/23 12:25:00 CDT, [...] Start Date: 07/07/24 10:05:00 AM CDT, Pharmacy: [facility] #[id number], 173, cm, 07/07/24 9:24:00 CDT, Height/Length Measured, 88.2, kg, 07/07/24 9:25:00 CDT, Weight Dosing Start Date: 07/07/24 Status: Ordered Levaquin 750 mg oral tablet 1 tab(s), Oral, Daily, 0 Refill(s), Start Date: 09/09/18 7:57:00 AM CDT Start Date: 09/09/18 Stop Date: 09/12/18 Status: Discontinued levoFLOXacin 500 mg oral tablet 1 tab(s), Oral, Daily, For chronic recurrent sinusitis, X 10 days, # 10 tab(s), 0 Refill(s), Start Date: 03/31/24 11:26:00 AM CDT, Pharmacy: [facility], 173, cm, 03/31/24 10:46:00 CDT, Height/Length Measured, 88.2, kg, 03/31/24 10:51:00 CDT, Weight Dosing Start Date: 03/31/24 Stop Date: 04/11/24 Status: Completed levoFLOXacin 500 mg oral tablet 1 tab(s), Oral, Daily, For chronic recurrent sinusitis, X 10 days, # 10 tab(s), 0 Refill(s), Start Date: 04/11/24 3:29:00 PM CDT, Pharmacy: [facility], 173, cm, 03/31/24 10:46:00 CDT, Height/Length Measured, 88.2, kg, 03/31/24 10:51:00 CDT, Weight Dosing Start Date: 04/11/24 Stop Date: 04/19/24 Status: Completed levoFLOXacin 500 mg oral tablet 1 tab(s), Oral, Daily, For chronic recurrent sinusitis, # 10 tab(s), 0 Refill(s), Start Date: 04/19/24 10:19:00 AM CDT, Pharmacy: [id number], 173, cm, 03/31/24 10:46:00 CDT, Height/Length Measured, 88.2, kg, 03/31/24 10:51:00 CDT, Weight Dosing Start Date: 04/19/24 Stop Date: 06/06/24 Status: Completed linezolid 600 mg oral tablet 1 tab(s), Oral, q12hr, generic please, # 28 tab(s), 0 Refill(s), Start Date: 11/16/18 11:41:00 AM CAGE FIGHTER, Pharmacy: [facility] Start Date: 11/16/18 Stop Date: 12/02/18 Status: Completed Medrol 4 mg oral tablet 1 packet(s), Oral, ONETIME, as directed on package labeling, # 21 tab(s), 0 Refill(s), Start Date: 11/18/22 1:39:00 PM CAGE FIGHTER, Pharmacy: [facility], 173, cm, 11/18/22 13:25:00 CAGE FIGHTER, Height/Length Measured, 86.3, kg, 11/18/22 13:27:00 CAGE FIGHTER, Weight Dosing Start Date: 11/18/22 Stop Date: 03/09/23 Status: Completed metFORMIN 500 mg oral tablet 0.5 tab(s), Oral, BID, # 30 tab(s), 11 Refill(s), Start Date: 04/03/24 11:56:00 AM CDT, Pharmacy: [facility], 173, cm, 03/31/24 10:46:00 CDT, Height/Length Measured, 88.2, kg, 03/31/24 10:51:00 CDT, Weight Dosing Start Date: 04/03/24 Stop Date: 04/19/24 Status: Completed metFORMIN 500 mg oral tablet 0.5 tab(s), Oral, BID, # 30 tab(s), 11 Refill(s), Start Date: 04/19/24 10:19:00 AM CDT, Pharmacy: [facility] #[id number], 173, cm, 03/31/24 10:46:00 CDT, Height/Length Measured, 88.2, kg, 03/31/2410:51:00 CDT, Weight Dosing Start Date: 04/19/24 Stop Date: 06/21/24 Status: Completed metFORMIN 500 mg oral tablet 1 tab(s), Oral, BID, # 180 tab(s), 3 Refill(s), Start Date: 07/07/24 11:58:00 AM CDT, Pharmacy: [facility] #[id number], 173, cm, 07/07/24 9:24:00 CDT, Height/Length Measured, 88.2, kg, 07/07/24 9:25:00 CDT, Weight Dosing Start Date: 07/07/24 Status: Ordered MiraLax oral powder for reconstitution 17 gm, Oral, Daily, Dissolve in water before taking, # 255 gm, 0 Refill(s), Start Date: 05/21/18 10:05:00 AM CDT, Pharmacy: [facility] [id number] Start Date: 05/21/18 Stop Date: 03/31/24 Status: Completed MS Contin 15 mg oral tablet, extended release 2 tab(s), Oral, q12hr, # 28 tab(s), 0 Refill(s), Start Date: 05/21/18 10:04:00 AM CDT, Pharmacy: [facility] [id number] Start Date: 05/21/18 Stop Date: 09/09/18 Status: Completed MS Contin 30 mg oral tablet, extended release 1 tab(s), Oral, q12hr interval, 0 Refill(s), Start Date: 09/12/18 9:49:00 AM CDT Start Date: 09/12/18 Stop Date: 06/16/19 Status: Completed Multi-Day Plus Minerals oral tablet 1 tab(s), Oral, Daily, # 30 tab(s), 0 Refill(s), Start Date: 09/30/22 3:49:00 PM CAGE FIGHTER Start Date: 09/30/22 Stop Date: 06/21/24 Status: Completed Narcan 4 mg/0.1 mL nasal spray 1 spray(s), Nasal, ONETIME, # 2 EA, 11 Refill(s), Start Date: 07/07/24 10:15:00 AM CDT, Pharmacy: [facility] #[id number], 173, cm, 07/07/24 9:24:00 CDT, Height/Length Measured, 88.2, kg, :25:00 CDT, Weight Dosing Start Date: 07/07/24 Status: Ordered oxycodone-acetaminophen 10 mg-325 mg oral tablet 0 Refill(s), Start Date: 11/18/22 1:27:00 PM CAGE FIGHTER Start Date: 11/18/22 Stop Date: 04/09/23 Status: [...] Start Date: 07/07/24 10:05:00 AM CDT, Pharmacy: [facility] #[id number], 173, cm, 07/07/24 9:24:00 CDT, Height/Length Measured, 88.2, kg, 07/07/24 9:25:00 CDT, Weight Dosing Start Date: 07/07/24 Stop Date: 07/11/24 Status: Discontinued Percocet 10/325 oral tablet 1 tab(s), Oral, q4hr interval, 0 Refill(s), Start Date: 05/15/18 10:18:00 PM CDT Start Date: 05/15/18 Stop Date: 05/17/18 Status: Discontinued Percocet 5/325 oral tablet 1 tab(s), Oral, q4hr, PRN PRN for pain, not to exceed 4000 mg acetaminophen per day, # 40 tab(s), 0Refill(s), Start Date: 05/17/18 4:24:00 PM CDT, Pharmacy: [facility] [id number] Start Date: 05/17/18 Stop Date: 09/09/18 Status: Completed Percocet 5/325 oral tablet See Instructions, PRN PRN for pain, 1 tab(s) Oral q6hr not to exceed 4000 mg acetaminophen per day,# 60 tab(s), 0 Refill(s), Start Date: 09/14/18 9:23:00 AM CDT, Pharmacy: [facility] Start Date: 09/14/18 Stop Date: 06/16/19 Status: Completed pregabalin 75 mg oral capsule 1 cap(s), Oral, BID, 0 Refill(s), Start Date: 03/31/24 10:44:00 AM CDT Start Date: 03/31/24 Stop Date: 07/07/24 Status: Discontinued Senokot S 50 mg-8.6 mg oral tablet 1 tab(s), Oral, BID, X 10 days, # 20 tab(s), 0 Refill(s), Start Date: 05/21/18 10:05:00 AM CDT, Pharmacy: [facility] [id number] Start Date: 05/21/18 Stop Date: 05/31/18 Status: Completed tamsulosin 0.4 mg oral capsule 1 cap(s), Oral, Daily, # 90 cap(s), 3 Refill(s), Start Date: 12/20/18 1:38:00 PM CAGE FIGHTER, Pharmacy: [facility] Start Date: 12/20/18 Stop Date: 09/30/22 Status: Completed tamsulosin 0.4 mg oral capsule 1 cap(s), Oral, Daily, 0 Refill(s), Start Date: 09/09/18 7:57:00 AM CDT Start Date: 09/09/18 Stop Date: 12/20/18 Status: Discontinued traMADol 50 mg oral tablet 1 tab(s), Oral, q4hr interval, PRN PRN as needed for pain, # 12 tab(s), 0 Refill(s), Start Date: 03/03/23 1:54:00 PM CDT, [facility], 173, cm, 11/18/22 13:25:00 CAGE FIGHTER, Height/Length Measured, 89.5, kg, 03/03/23 12:25:00 CDT, Weight Dosing Start Date: 03/03/23 Stop Date: 03/31/24 Status: Completed vancomycin 1 g intravenous injection IV, q12hr interval, prescribed by Dr Perdue, 0 Refill(s), Start Date: 10/21/18 8:45:00 AM CAGE FIGHTER Start Date: 10/21/18 Stop Date: 11/16/18 Status: Completed Zinc 140 mg (as elemental zinc 50 mg) oral tablet 1 tab(s), Oral, Daily, # 90 tab(s), 0 Refill(s), Start Date: 09/30/22 3:48:00 PM CAGE FIGHTER Start Date: 09/30/22 Stop Date: 06/21/24 Status: Completed Problem List Condition Confirmation Course Effective Dates Status H ealt Status Informant Benign essential HTN Confirmed Active Chronic intractable [...] C ompleted Tonsillectomy Completed wrist fusion 20, Compl eted 1auto-populated from documented surgical case [...] Elbow surgery from elbow to forearm 14left [id number] procedure 16left 17LT Rotator Cuff Repair 18right 19RT Tendon Repair 20right side 21RT Wrist Surgery- Frzn wrist- 2 screws Results Most recent to oldest [Reference Range]: 1 Weight Measured 87.5 kg (07/19/24 8:45 AM) Height/Length Measured 173 cm (07/19/24 8:45 AM) Body Mass Index Measured 29.24 kg/m2 (07/19/24 8:45 AM) Vital Signs Most recent to oldest [Reference Range]: 1 Height/Length Measured 173 cm (07/19/24 8:45 AM) Weight Dosing 87.50 kg 1 (07/19/24 8:47 AM) Weight Measured 87.5 kg (07/19/24 8:45 AM) BSA Measured 2.02 m2 (07/19/24 8:45 AM) Body Mass Index Measured 29.24 kg/m2 (07/19/24 8:45 AM) 1Result Comment: This result was because the dosing weight was either not entered or it is >30 days old. This result is based off: Weight Measured July 19, 2024 08:45:00 CDT by Penny Lopez CMA Social History Social History Type Response Sex Male Patient Care team information Personnel Name: Carlos Enrique Obando MD Address: Address: [address] [place] [address]
--- OUTSIDE RECORDS SUMMARY | 2024-11-23 00:07 | XMS_ITS | Continuity of Care Document ---
Author Organization [facility] Address [address] [facility] [address] [place] [address] Care Team Providers Care Nuclear Powerplant Supervisor Name Role Phone Carlos Enrique Obando Primary Care Physician [phone] Encounter Date(s): 08/02/24 - 08/02/24 Family Medicine [facility] [place] [address] [place] [address]- Discharge Disposition: Discharged to Home or Self [...] Start Date: 04/22/23 10:25:00 AM CDT, Pharmacy: [facility], 173, cm, 04/09/23 15:48:00 CDT, Height/Length [...] Start Date: 03/09/23 10:48:00 AM CDT, Pharmacy: [facility], 173, cm, 03/09/23 10:20:00 CDT, Height/Length Measured, 89.5, kg, 03/09/23 10:22:00 CDT, Weight Dosing Start Date: 03/09/23 Stop Date: 08/27/23 Status: Completed amLODIPine 5 mg oral tablet 1 tab(s), Oral, Daily, # 90 tab(s), 3 Refill(s), Start Date: 08/27/23 8:41:00 AM CDT, Pharmacy: [facility], 173, cm, 04/09/23 15:48:00 CDT, Height/Length Measured, [...] Start Date: 07/26/24 3:47:00 PM CDT, Pharmacy: [facility] #[id number], 173, cm, 07/26/24 15:14:00 CDT, Height/Length Measured, [...] Start Date: 07/07/24 11:58:00 AM CDT, Pharmacy: [facility] #[id number], 173, cm, 07/07/24 9:24:00 CDT, Height/Length Measured, 88.2, kg, 07/07/24 9:25:00 CDT, Weight Dosing Start Date: 07/07/24 Status: Ordered baclofen 10 mg oral tablet 1 tab(s), Oral, TID, # 30 tab(s), 0 Refill(s), Start Date: 03/09/23 10:49:00 AM CDT, [facility], 173, cm, 03/09/23 10:20:00 CDT, Height/Length Measured, 89.5, kg, 03/09/23 10:22:00 CDT,Weight Dosing Start Date: 03/09/23 Stop Date: 04/22/23 Status: Completed baclofen 10 mg oral tablet 1 tab(s), Oral, TID, # 30 tab(s), 1 Refill(s), Start Date: 04/22/23 11:37:00 AM CDT, Pharmacy: [facility], 173, cm, 04/09/23 15:48:00 CDT, Height/Length Measured, 87.6, kg, 04/09/23 15:50:00 CDT, Weight Dosing Start Date: 04/22/23 Stop Date: 03/31/24 Status: Completed baclofen 10 mg oral tablet 0 Refill(s), Start Date: 11/18/22 1:27:00 PM 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 Start Date: 11/18/22 Stop Date: 03/09/23 Status: Discontinued baclofen 10 mg oral tablet 1 tab(s), Oral, TID, PRN PRN for pain, 0 Refill(s), Start Date: 05/15/18 11:15:00 PM CDT Start Date: 05/15/18 Stop Date: 06/16/19 Status: Completed baclofen 10 mg tablet baclofen 10 mg tablet, 1 tab(s), Oral, TID, # 30 tab(s), 2 Refill(s), Pharmacy: [facility], 173, cm, 04/09/23 15:48:00 CDT, Height/Length Measured, 87.6, kg, 04/09/23 15:50:00 CDT, Weight Dosing Start Date: 06/08/23 Stop Date: 03/31/24 Status: Completed baclofen 10 mg tablet baclofen 10 mg tablet, 1 tab(s), Oral, TID, # 30 tab(s), 2 Refill(s), Pharmacy: [facility], 173, cm, 04/09/23 15:48:00 CDT, Height/Length Measured, 87.6, kg, 04/09/23 15:50:00 CDT, Weight Dosing Start Date: 06/18/23 Stop Date: 03/31/24 Status: Completed carisoprodol 250 mg oral tablet 1 tab(s), Oral, BID, # 60 tab(s), 5 Refill(s), Start Date: 07/26/24 3:47:00 PM CDT, Pharmacy: [facility] #[id number], 173, cm, 07/26/24 15:14:00 CDT, Height/Length Measured, 88, kg, 07/26/24 15:24:00 CDT, Weight Dosing Start Date: 07/26/24 Status: Ordered cephalexin 500 mg oral capsule 1 cap(s), Oral, QID, 0 Refill(s), Start Date: 09/09/18 7:56:00 AM CDT Start Date: 09/09/18 Stop Date: 09/12/18 Status: Discontinued ciprofloxacin 750 mg oral tablet 1 tab(s), Oral, q12hr, 2h away from dairy, # 20 tab(s), 0 Refill(s), Start Date: 11/09/18 6:34:00 PM 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, Pharmacy: [facility] Start Date: 11/09/18 Stop Date: 12/16/18 Status: Completed ciprofloxacin 750 mg oral tablet 1 tab(s), Oral, q12hr, 2h away from dairy, X 14 days, # 28 tab(s), 2 Refill(s), Start Date: :21:00 PM 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, Pharmacy: [facility] Start Date: 09/19/18 Stop Date: 11/09/18 [...] 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 daily 3 months 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, # 1 boxes, 0 Refill(s), 03/16/19 6:45:00 [...] 3 Refill(s), Start Date: 12/20/18 1:37:00 PM [facility], Pharmacy: [facility] Start Date: 12/20/18 Stop Date: 09/30/22 Status: Completed finasteride 5 mg oral tablet 1 tab(s), Oral, Daily, # 30 tab(s), 0 Refill(s), Start Date: 03/31/24 10:43:00 AM CDT Start Date: 03/31/24 Stop Date: 06/21/24 Status: Completed fluticasone 50 mcg/inh nasal spray 2 spray(s), Nasal, BID, X 42 days, # 16 gm, 11 Refill(s), Start Date: 04/03/24 11:55:00 AM CDT, Pharmacy: [facility], 173, cm, 03/31/24 10:46:00 CDT, Height/Length [...] Start Date: 04/19/24 10:19:00 AM CDT, [id number], 173, cm, 03/31/24 10:46:00 CDT, Height/Length Measured, 88.2, kg, 03/31/24 10:51:00 CDT, Weight Dosing Start Date: 04/19/24 Stop Date: 06/21/24 Status: Completed gabapentin 300 mg oral capsule 1 cap(s), Oral, TID, # 90 cap(s), 11 Refill(s), Start Date: 07/07/24 10:05:00 AM CDT, Pharmacy: [facility] #[id number], 173, cm, 07/07/24 9:24:00 CDT, Height/Length Measured, 88.2, kg, 07/07/24 9:25:00 CDT, Weight Dosing Start Date: 07/07/24 Stop Date: 07/11/24 Status: Discontinued hydrocodone-acetaminophen 5 mg-325 mg oral tablet See Instructions, /2 to 1 tab(s) Oral TID, # 60 tab(s), 0 Refill(s), Start Date: 07/11/24 2:53:00 PM CDT, [id number], 173, cm, 07/07/24 9:24:00 CDT, Height/Length Measured,88.2, kg, 07/07/24 9:25:00 CDT, Weight Dosing Start Date: 07/11/24 Stop Date: 07/26/24 Status: Discontinued ibuprofen 600 mg oral tablet 1 tab(s), Oral, QID, PRN PRN for pain, with food or milk, # 30 tab(s), 0 Refill(s), Start Date: 03/03/23 1:53:00 PM CDT, Pharmacy: [facility], 173, cm, 11/18/22 13:25:00 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, Height/Length Measured, 89.5, kg, 03/03/23 12:25:00 CDT, [...] Start Date: 07/07/24 10:05:00 AM CDT, Pharmacy: [facility] #[id number], 173, cm, 07/07/24 9:24:00 CDT, Height/Length Measured, [...] Start Date: 03/31/24 11:26:00 AM CDT, Pharmacy: [facility], 173, cm, 03/31/24 10:46:00 CDT, Height/Length Measured, 88.2, kg, 03/31/24 10:51:00 CDT, Weight Dosing Start Date: 03/31/24 Stop Date: 04/11/24 Status: Completed levoFLOXacin 500 mg oral tablet 1 tab(s), Oral, Daily, For chronic recurrent sinusitis, X 10 days, # 10 tab(s), 0 Refill(s), Start Date: 04/11/24 3:29:00 PM CDT, Pharmacy: [facility], 173, cm, 03/31/24 10:46:00 CDT, Height/Length Measured, 88.2, kg, 03/31/24 10:51:00 CDT, Weight Dosing Start Date: 04/11/24 Stop Date: 04/19/24 Status: Completed levoFLOXacin 500 mg oral tablet 1 tab(s), Oral, Daily, For chronic recurrent sinusitis, # 10 tab(s), 0 Refill(s), Start Date: 04/19/24 10:19:00 AM CDT, Pharmacy: [facility] #[id number], 173, cm, 03/31/24 10:46:00 CDT, Height/Length Measured, 88.2, kg, 03/31/24 10:51:00 CDT, Weight Dosing Start Date: 04/19/24 Stop Date: 06/06/24 Status: Completed linezolid 600 mg oral tablet 1 tab(s), Oral, q12hr, generic please, # 28 tab(s), 0 Refill(s), Start Date: 11/16/18 11:41:00 AM 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, Pharmacy: [facility] Start Date: 11/16/18 Stop Date: 12/02/18 Status: Completed Medrol 4 mg oral tablet 1 packet(s), Oral, ONETIME, as directed on package labeling, # 21 tab(s), 0 Refill(s), Start Date: 11/18/22 1:39:00 PM 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, Pharmacy: [facility], 173, cm, 11/18/22 13:25:00 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, Height/Length Measured, 86.3, kg, 11/18/22 13:27:00 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, Weight Dosing Start Date: 11/18/22 Stop Date: 03/09/23 Status: Completed metFORMIN 500 mg oral tablet 0.5 tab(s), Oral, BID, # 30 tab(s), 11 Refill(s), Start Date: 04/03/24 11:56:00 AM CDT, Pharmacy: [facility], 173, cm, 03/31/24 10:46:00 CDT, Height/Length Measured, 88.2, kg, 03/31/24 10:51:00 CDT, Weight Dosing Start Date: 04/03/24 Stop Date: 04/19/24 Status: Completed metFORMIN 500 mg oral tablet 0.5 tab(s), Oral, BID, # 30 tab(s), 11 Refill(s), Start Date: 04/19/24 10:19:00 AM CDT, [id number], 173, cm, 03/31/24 10:46:00 CDT, Height/Length Measured, 88.2, kg, 03/31/2410:51:00 CDT, Weight Dosing Start Date: 04/19/24 Stop Date: 06/21/24 Status: Completed metFORMIN 500 mg oral tablet 1 tab(s), Oral, BID, # 180 tab(s), 3 Refill(s), Start Date: 07/07/24 11:58:00 AM CDT, Pharmacy: [facility] #[id number], 173, cm, 07/07/24 9:24:00 CDT, Height/Length Measured, 88.2, kg, 07/07/24 9:25:00 CDT, Weight Dosing Start Date: 07/07/24 Status: Ordered MiraLax oral powder for reconstitution 17 gm, Oral, Daily, Dissolve in water before taking, # 255 gm, 0 Refill(s), Start Date: 05/21/18 10:05:00 AM CDT, Pharmacy: [id number] Start Date: 05/21/18 Stop Date: 03/31/24 Status: Completed MS Contin 15 mg oral tablet, extended release 2 tab(s), Oral, q12hr, # 28 tab(s), 0 Refill(s), Start Date: 05/21/18 10:04:00 AM CDT, Pharmacy: [facility] [id number] Start Date: 05/21/18 Stop Date: 09/09/18 Status: Completed MS Contin 30 mg oral tablet, extended release 1 tab(s), Oral, q12hr interval, 0 Refill(s), Start Date: 09/12/18 9:49:00 AM CDT Start Date: 09/12/18 Stop Date: 06/16/19 Status: Completed Multi-Day Plus Minerals oral tablet 1 tab(s), Oral, Daily, # 30 tab(s), 0 Refill(s), Start Date: 09/30/22 3:49:00 PM 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 Start Date: 09/30/22 Stop Date: 06/21/24 Status: Completed Narcan 4 mg/0.1 mL nasal spray 1 spray(s), Nasal, ONETIME, # 2 EA, 11 Refill(s), Start Date: 07/07/24 10:15:00 AM CDT, Pharmacy: [facility] #[id number], 173, cm, 07/07/24 9:24:00 CDT, Height/Length Measured, 88.2, kg, 249:25:00 CDT, Weight Dosing Start Date: 07/07/24 Stop Date: 07/26/24 Status: Discontinued oxycodone-acetaminophen 10 mg-325 mg oral tablet 0 Refill(s), Start Date: 11/18/22 1:27:00 PM 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 Start Date: 11/18/22 Stop Date: 04/09/23 Status: [...] Start Date: 07/07/24 10:05:00 AM CDT, Pharmacy: [facility] #[id number], 173, cm, 07/07/24 9:24:00 CDT, Height/Length Measured, [...] Start Date: 05/17/18 4:24:00 PM CDT, Pharmacy: [facility] [id number] Start Date: 05/17/18 Stop Date: 09/09/18 Status: Completed Percocet 5/325 oral tablet See Instructions, PRN PRN for pain, 1 tab(s) Oral q6hr not to exceed 4000 mg acetaminophen per day,# 60 tab(s), 0 Refill(s), Start Date: 09/14/18 9:23:00 AM CDT, Pharmacy: [facility] Start Date: 09/14/18 Stop Date: 06/16/19 Status: Completed predniSONE 10 mg oral tablet 3 tab(s), Oral, BID, For inflammation and pain, # 84 tab(s), 0 Refill(s), Start Date: 07/26/24 3:47:00 PM CDT, Pharmacy: [facility] #[id number], 173, cm, 07/26/24 15:14:00 CDT, Height/Length Measured, 88, kg, 07/26/24 15:24:00 CDT, Weight Dosing Start Date: 07/26/24 Status: Ordered pregabalin 75 mg oral capsule 1 cap(s), Oral, BID, 0 Refill(s), Start Date: 03/31/24 10:44:00 AM CDT Start Date: 03/31/24 Stop Date: 07/07/24 Status: Discontinued Senokot S 50 mg-8.6 mg oral tablet 1 tab(s), Oral, BID, X 10 days, # 20 tab(s), 0 Refill(s), Start Date: 05/21/18 10:05:00 AM CDT, Pharmacy: [facility] [id number] Start Date: 05/21/18 Stop Date: 05/31/18 Status: Completed tamsulosin 0.4 mg oral capsule 1 cap(s), Oral, Daily, # 90 cap(s), 3 Refill(s), Start Date: 12/20/18 1:38:00 PM 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, Pharmacy: [facility] Start Date: 12/20/18 Stop Date: 09/30/22 Status: Completed tamsulosin 0.4 mg oral capsule 1 cap(s), Oral, Daily, 0 Refill(s), Start Date: 09/09/18 7:57:00 AM CDT Start Date: 09/09/18 Stop Date: 12/20/18 Status: Discontinued traMADol 50 mg oral tablet 1 tab(s), Oral, q4hr interval, PRN PRN as needed for pain, # 12 tab(s), 0 Refill(s), Start Date: 03/03/23 1:54:00 PM CDT, Pharmacy: [facility], 173, cm, 11/18/22 13:25:00 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, Height/Length Measured, 89.5, kg, 03/03/23 12:25:00 CDT, Weight Dosing Start Date: 03/03/23 Stop Date: 03/31/24 Status: Completed vancomycin 1 g intravenous injection IV, q12hr interval, prescribed by Dr Perdue, 0 Refill(s), Start Date: 10/21/18 8:45:00 AM 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 Start Date: 10/21/18 Stop Date: 11/16/18 Status: Completed Zinc 140 mg (as elemental zinc 50 mg) oral tablet 1 tab(s), Oral, Daily, # 90 tab(s), 0 Refill(s), Start Date: 09/30/22 3:48:00 PM 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 Start Date: 09/30/22 Stop Date: 06/21/24 Status: [...] Elbow surgery from elbow to forearm 14left [id number] procedure 16left 17LT Rotator Cuff Repair 18right 19RT Tendon Repair 20right side 21RT Wrist Surgery- Frzn wrist- 2 screws Social History Social History Type Response Sex Male Patient Care team information Personnel Name: Carlos Enrique Obando MD Address: Address: [id number] [place] [address]
--- OUTSIDE RECORDS SUMMARY | 2024-11-23 00:07 | XMS_ITS | Continuity of Care Document ---
Author Organization [facility] Address [address] [place] [address] Care Team Providers Care Wood Lather Name Role Phone Carlos Enrique Obando Primary Care Physician Encounter Date(s): 09/13/24 - 09/15/[address] [facility] [address] [place], [place] [address] Discharge Disposition: 01 Discharged to Home or Self Care Attending Physician: Carlos Enrique Obando MD Admitting Physician: Carlos Enrique Obando MD Allergies, Adverse [...] Start Date: 04/22/23 10:25:00 AM CDT, Pharmacy: [facility], 173, cm, 04/09/23 15:48:00 CDT, Height/Length [...] Start Date: 03/09/23 10:48:00 AM CDT, Pharmacy: [facility], 173, cm, 03/09/23 10:20:00 CDT, Height/Length Measured, 89.5, kg, 03/09/23 10:22:00 CDT, Weight Dosing Start Date: 03/09/23 Stop Date: 08/27/23 Status: Completed amLODIPine 5 mg oral tablet 1 tab(s), Oral, Daily, # 90 tab(s), 3 Refill(s), Start Date: 08/27/23 8:41:00 AM CDT, Pharmacy: [facility], 173, cm, 04/09/23 15:48:00 CDT, Height/Length [...] Start Date: 07/26/24 3:47:00 PM CDT, [id number], cm, 07/26/24 15:14:00 CDT, Height/Length Measured, [...] Start Date: 07/07/24 11:58:00 AM CDT, Pharmacy: [facility] #[id number], 173, cm, 07/07/24 9:24:00 CDT, Height/Length Measured, 88.2, kg, 07/07/24 9:25:00 CDT, Weight Dosing Start Date: 07/07/24 Status: Ordered baclofen 10 mg oral tablet 1 tab(s), Oral, TID, # 30 tab(s), 0 Refill(s), Start Date: 03/09/23 10:49:00 AM CDT, Pharmacy: 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, 173, cm, 04/09/23 15:48:00 CDT, Height/Length Measured, 87.6, kg, 04/09/23 15:50:00 CDT, Weight Dosing Start Date: 06/08/23 Stop Date: 03/31/24 Status: Completed baclofen 10 mg tablet baclofen 10 mg tablet, 1 tab(s), Oral, TID, # 30 tab(s), 2 Refill(s), Pharmacy: 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, Pharmacy: [facility] Start Date: 11/09/18 Stop Date: 12/16/18 Status: Completed ciprofloxacin 750 mg oral tablet 1 tab(s), Oral, q12hr, 2h away from dairy, X 14 days, # 28 tab(s), 2 Refill(s), Start Date: :21:00 PM [employer] ARCHEOLOGY PROFESSOR, Pharmacy: [facility] Start Date: 09/19/18 Stop Date: 11/09/18 [...] 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 daily 3 months 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, 173, cm, 03/31/24 10:46:00 CDT, Height/Length [...] Start Date: 04/19/24 10:19:00 AM CDT, Pharmacy: [facility] #[id number], 173, cm, 03/31/24 10:46:00 CDT, Height/Length Measured, 88.2, kg, 03/31/24 10:51:00 CDT, Weight Dosing Start Date: 04/19/24 Stop Date: 06/21/24 Status: Completed gabapentin 300 mg oral capsule 1 cap(s), Oral, TID, # 90 cap(s), 11 Refill(s), Start Date: 07/07/24 10:05:00 AM CDT, Pharmacy: [facility] #[id number], 173, cm, 07/07/24 9:24:00 CDT, Height/Length Measured, 88.2, kg, 07/07/24 9:25:00 CDT, Weight Dosing Start Date: 07/07/24 Stop Date: 07/11/24 Status: Discontinued hydrocodone-acetaminophen 5 mg-325 mg oral tablet See Instructions, 1/2 to 1 tab(s) Oral TID, # 60 tab(s), 0 Refill(s), Start Date: 07/11/24 2:53:00 PM CDT, Pharmacy: [facility] #[id number], 173, cm, 07/07/24 9:24:00 CDT, Height/Length Measured,88.2, kg, 07/07/24 9:25:00 CDT, Weight Dosing Start Date: 07/11/24 Stop Date: 07/26/24 Status: Discontinued ibuprofen 600 mg oral tablet 1 tab(s), Oral, QID, PRN PRN for pain, with food or milk, # 30 tab(s), 0 Refill(s), Start Date: 03/03/23 1:53:00 PM CDT, Pharmacy: [facility], 173, cm, 11/18/22 13:25:00 [employer] 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, 173, cm, 03/31/24 10:46:00 CDT, Height/Length Measured, 88.2, kg, 03/31/24 10:51:00 CDT, Weight Dosing Start Date: 03/31/24 Stop Date: 04/11/24 Status: Completed levoFLOXacin 500 mg oral tablet 1 tab(s), Oral, Daily, For chronic recurrent sinusitis, X 10 days, # 10 tab(s), 0 Refill(s), Start Date: 04/11/24 3:29:00 PM CDT, Pharmacy: [facility], 173, cm, 03/31/24 10:46:00 CDT, Height/Length Measured, 88.2, kg, 03/31/24 10:51:00 CDT, Weight Dosing Start Date: 04/11/24 Stop Date: 04/19/24 Status: Completed levoFLOXacin 500 mg oral tablet 1 tab(s), Oral, Daily, For chronic recurrent sinusitis, # 10 tab(s), 0 Refill(s), Start Date: 04/19/24 10:19:00 AM CDT, Pharmacy: [facility] #[id number], 173, cm, 03/31/24 10:46:00 CDT, Height/Length Measured, 88.2, kg, 03/31/24 10:51:00 CDT, Weight Dosing Start Date: 04/19/24 Stop Date: 06/06/24 Status: Completed linezolid 600 mg oral tablet 1 tab(s), Oral, q12hr, generic please, # 28 tab(s), 0 Refill(s), Start Date: 11/16/18 11:41:00 AM [employer] AR[employer]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[employer] 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, Pharmacy: [facility] Start Date: 11/16/18 Stop Date: 12/02/18 Status: Completed Medrol 4 mg oral tablet 1 packet(s), Oral, ONETIME, as directed on package labeling, # 21 tab(s), 0 Refill(s), Start Date: 11/18/22 1:39:00 PM [employer] AR[employer]OLOGY PROFESSOR, Pharmacy: [facility], 173, cm, 11/18/22 13:25:00 [employer] ARCHEOLOGY PROFESSOR, Height/Length Measured, 86.3, kg, 11/18/22 13:27:00 [employer] AR[employer]OLOGY PROFESSOR, Weight Dosing Start Date: 11/18/22 Stop Date: 03/09/23 Status: Completed metFORMIN 500 mg oral tablet 0.5 tab(s), Oral, BID, # 30 tab(s), 11 Refill(s), Start Date: 04/03/24 11:56:00 AM CDT, Pharmacy: [facility], 173, cm, 03/31/24 10:46:00 CDT, Height/Length Measured, 88.2, kg, 03/31/24 10:51:00 CDT, Weight Dosing Start Date: 04/03/24 Stop Date: 04/19/24 Status: Completed metFORMIN 500 mg oral tablet 0.5 tab(s), Oral, BID, # 30 tab(s), 11 Refill(s), Start Date: 04/19/24 10:19:00 AM CDT, Pharmacy: [facility] #[id number], 173, cm, 03/31/24 10:46:00 CDT, Height/Length Measured, 88.2, kg, 03/31/2410:51:00 CDT, Weight Dosing Start Date: 04/19/24 Stop Date: 06/21/24 Status: Completed metFORMIN 500 mg oral tablet 1 tab(s), Oral, BID, # 180 tab(s), 3 Refill(s), Start Date: 07/07/24 11:58:00 AM CDT, Pharmacy: [facility] #[id number], 173, cm, 07/07/24 9:24:00 CDT, Height/Length Measured, 88.2, kg, 07/07/24 9:25:00 CDT, Weight Dosing Start Date: 07/07/24 Status: Ordered MiraLax oral powder for reconstitution 17 gm, Oral, Daily, Dissolve in water before taking, # 255 gm, 0 Refill(s), Start Date: 05/21/18 10:05:00 AM CDT, Pharmacy: [id number] Start Date: 05/21/18 Stop Date: 03/31/24 Status: Completed MS Contin 15 mg oral tablet, extended release 2 tab(s), Oral, q12hr, # 28 tab(s), 0 Refill(s), Start Date: 05/21/18 10:04:00 AM CDT, Pharmacy: [facility] [id number] Start Date: 05/21/18 Stop Date: 09/09/18 Status: Completed MS Contin 30 mg oral tablet, extended release 1 tab(s), Oral, q12hr interval, 0 Refill(s), Start Date: 09/12/18 9:49:00 AM CDT Start Date: 09/12/18 Stop Date: 06/16/19 Status: Completed Multi-Day Plus Minerals oral tablet 1 tab(s), Oral, Daily, # 30 tab(s), 0 Refill(s), Start Date: 09/30/22 3:49:00 PM [employer] AR[employer]OLOG[employer] PROFESSOR Start Date: 09/30/22 Stop Date: 06/21/24 Status: Completed Narcan 4 mg/0.1 mL nasal spray 1 spray(s), Nasal, ONETIME, # 2 EA, 11 Refill(s), Start Date: 07/07/24 10:15:00 AM CDT, Pharmacy: [facility] #[id number], 173, cm, 07/07/24 9:24:00 CDT, Height/Length Measured, 88.2, kg, :25:00 CDT, Weight Dosing Start Date: 07/07/24 Stop Date: 07/26/24 Status: Discontinued Narcan 4 mg/0.1 mL nasal spray 1 spray(s), Nasal, ONETIME, # 2 EA, 0 Refill(s), Start Date: 08/25/24 3:51:00 PM CDT, Pharmacy: [id number], 173, cm, 07/26/24 15:14:00 CDT, Height/Length Measured, 88, kg, 08/17/24 7:54:00 CDT, Weight Dosing Start Date: 08/25/24 Status: Ordered oxycodone-acetaminophen 10 mg-325 mg oral tablet 0 Refill(s), Start Date: 11/18/22 1:27:00 PM [employer] PROFESSOR Start Date: 11/18/22 Stop Date: 04/09/23 Status: [...] Start Date: 09/06/24 2:38:00 PM CDT, Pharmacy: [id number], 173, cm, 09/06/24 14:02:00 [...] Start Date: 09/13/24 12:13:00 PM CDT, Pharmacy: [id number], 173, cm, 09/13/24 8:29:00 CDT, Height/Length Measured, 85, kg, 09/13/24 8:32:00 CDT, Weight Dosing Start Date: 09/13/24 Status: Ordered oxycodone-acetaminophen 5 mg-325 mg oral tablet 1 tab(s), Oral, TID, PRN PRN pain moderate 4-7, # 42 tab(s), 0 Refill(s), Start Date: 07/07/24 10:05:00 AM CDT, Pharmacy: [facility] #[id number], 173, cm, 07/07/24 9:24:00 CDT, Height/Length Measured, 88.2, kg, 07/07/24 9:25:00 CDT, Weight Dosing Start Date: 07/07/24 Stop Date: 07/11/24 Status: Discontinued oxycodone-acetaminophen 5 mg-325 mg oral tablet 1 tab(s), Oral, TID, PRN PRN pain severe 8-10, # 90 tab(s), 0 Refill(s), Start Date: 08/25/24 10:49:00 AM CDT, Pharmacy: [facility], 173, cm, 07/26/24 15:14:00 [...] Start Date: 05/17/18 4:24:00 PM CDT, Pharmacy: [id number] Start Date: 05/17/18 Stop Date: 09/09/18 Status: Completed Percocet 5/325 oral tablet See Instructions, PRN PRN for pain, 1 tab(s) Oral q6hr not to exceed 4000 mg acetaminophen per day,# 60 tab(s), 0 Refill(s), Start Date: 09/14/18 9:23:00 AM CDT, Pharmacy: [facility] Start Date: 09/14/18 Stop Date: 06/16/19 Status: Completed predniSONE 10 mg oral tablet 3 tab(s), Oral, BID, For inflammation and pain, # 84 tab(s), 0 Refill(s), Start Date: 08/10/24 9:14:00 AM CDT, Pharmacy: [facility], 173, cm, 07/26/24 15:14:00 CDT, Height/Length Measured, 88, kg, 07/26/24 15:24:00 CDT, Weight Dosing Start Date: 08/10/24 Stop Date: 08/25/24 Status: Discontinued predniSONE 10 mg oral tablet 3 tab(s), Oral, BID, For inflammation and pain, # 84 tab(s), 0 Refill(s), Start Date: 07/26/24 3:47:00 PM CDT, Pharmacy: [facility] #[id number], 173, cm, 07/26/24 15:14:00 CDT, Height/Length Measured, [...] Start Date: 05/21/18 10:05:00 AM CDT, Pharmacy: [id number] Start Date: 05/21/18 Stop Date: 05/31/18 Status: Completed tamsulosin 0.4 mg oral capsule 1 cap(s), Oral, Daily, # 90 cap(s), 3 Refill(s), Start Date: 12/20/18 1:38:00 PM [employer] 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, 173, cm, 11/18/22 13:25:00 NE[employer] E[employer] ARCHEOLOGY PROFESSOR, Height/Length Measured, 89.5, kg, 03/03/23 12:25:00 CDT, Weight Dosing Start Date: 03/03/23 Stop Date: 03/31/24 Status: Completed vancomycin 1 g intravenous injection IV, q12hr interval, prescribed by Dr Perdue, 0 Refill(s), Start Date: 10/21/18 8:45:00 AM [employer] AR[employer]OLOG[employer] PROFESSOR Start Date: 10/21/18 Stop Date: 11/16/18 Status: Completed Zinc 140 mg (as elemental zinc 50 mg) oral tablet 1 tab(s), Oral, Daily, # 90 tab(s), 0 Refill(s), Start Date: 09/30/22 3:48:00 PM [employer] ARCHEOLOGY PROFESSOR Start Date: 09/30/22 Stop Date: 06/21/24 Status: [...] 9 05/16/18 Completed Colonoscopy 10, 11 Comple olbito elbow surgery 12, 13 Comp leted Hip [...] Elbow surgery from elbow to forearm 14left [id number] procedure 16left 17LT Rotator Cuff Repair 18right 19RT Tendon Repair 20right side 21RT Wrist Surgery- Frzn wrist- 2 screws Results Laboratory List Name Date Whole Blood Glucose 09/13/24 Most recent to oldest [Reference Range]: 1 Whole Blood Glucose [74-106 mg/dL] 141 m g/dL 1 *HI* (09/13/24 8:01 AM) Heart Rate Monitored [60-100 bpm] 66 bpm (09/13/24 7:35 AM) Respiratory Rate [14-20 br/min] 16 br/mi n (09/13/24 7:35 AM) 1Result Comment: Notified Nurse Plasticator: [id number] Porsha Manzanares RN Vital Signs Most recent to oldest [Reference Range]: 1 2 Temperature Temporal Artery [36.5-37.3 DegC] 36.6 DegC (09/13/24 7:35 AM) Heart Rate Monitored [60-100 bpm] 66 bpm (09/13/24 7:35 AM) Respiratory Rate [14-20 br/min] 16 br/mi n (09/13/24 7:35 AM) SpO2 [95 %] 98 % (09/13/24 7:35 AM) Blood Pressure [90-130/60-90 mmHg] 150/9 2mmHg *HI* (09/13/24 7:35 AM) Height/Length Estimated 173 cm (09/13/24 7:35 AM) Weight Estimated 88 kg (09/13/24 7:35 AM) BSA Estimated 2.06 m2 (09/13/24 7:35 AM) 2.06 m2 (09/13/24 7:35 AM) Body Mass Index Estimated 29.4 kg/m2 (09/13/24 7:35 AM) 29.4 kg/m2 (09/13/24 7:35 AM) Social History Social History Type Response Sex Male Anesthesiology Progress note * Clarence Henderson CRNA: PERFORM, SIGN, VERIFY Event Display: Anesthesiology Progress Note Authored Date: [id number] Patient: SHAYLA DURAND Age: 68 years Sex: Male : 1955 Associated Diagnoses: None Author: Clarence Henderson CRNA Preoperative Information Procedure/ Case: Epidural Steroid Injection - Cervical cervical shefali c4-6 Anesthesiologist scheduled: Clarence Henderson CRNA Anesthesia history Patient's history: negative. Family's history: negative. Health Status Allergies: Nonallergic Reactions (Selected) Moderate PredniSONE- Unable to sleep. Severity Not Documented Gabapentin- Headache. Lyrica- Confusion and lethargy., Allergies (3) Active Reaction predniSONE Unable to sleep gabapentin Headache Lyrica Confusion Current medications: (Selected) Prescriptions Prescribed Narcan 4 mg/0.1 mL nasal spray: 1 spray(s), Nasal, ONETIME, 2 EA, 0 Refill(s) aspirin 81 mg oral delayed release tablet: 1 tab(s), Oral, Daily, 30 tab(s), 11 Refill(s) atorvastatin 20 mg oral tablet: 1 tab(s), Oral, Daily, 90 tab(s), 3 Refill(s) metFORMIN 500 mg oral tablet: 1 tab(s), Oral, BID, 180 tab(s), 3 Refill(s) oxycodone-acetaminophen 5 mg-325 mg oral tablet: 1 tab(s), Oral, TID, PRN: pain severe 8-10, 90 tab(s), 0 Refill(s) Documented Medications Documented amLODIPine 10 mg oral tablet: 1 tab(s), Oral, Daily, 90 tab(s), 0 Refill(s) finasteride 5 mg oral tablet: 1 tab(s), Oral, Daily, 90 tab(s), 0 Refill(s), No qualifying data available Problem list: All Problems Arthritis of left wrist / 5242570561 / Confirmed Benign essential HTN / 2906889 / Confirmed Chronic intractable pain / 710741928 / Confirmed Chronic low back pain / 217099319 / Confirmed Chronic neck pain / 2793744079 / Confirmed Chronic sinusitis / 29236755 / Confirmed Chronic use of opiate for therapeutic purpose. / 478486067 / Confirmed Eustachian tube dysfunction / 02108782 / Confirmed Gait difficulty / 700211452 / Confirmed History of BPH / 957313135 / Confirmed History of left hip replacement / 1927877758 / Confirmed History of TIAs / 8875400200 / Confirmed Hyperlipidemia, unspecified / 06069049 / Confirmed Neuropathy of leg / 0503640787 / Confirmed ULLOA (nonalcoholic steatohepatitis) / 1037711321 / Confirmed Osteoarthritis of carpometacarpal joint of left thumb / 36563576 / Confirmed Right elbow pain / 372482172 / Confirmed Bilateral leg pain / 395523646 / Confirmed PTSD (post-traumatic stress disorder) / 35023789 / Confirmed Prediabetes / 6488421302 / Confirmed Bilateral shoulder pain / 18106912 / Confirmed Pulsatile tinnitus / 465900086 / Confirmed Type 2 diabetes mellitus without complications / 394015884 / Confirmed Vertigo / 9426956825 / Confirmed Left wrist effusion / 852996777 / Confirmed, Active Problems (25) Arthritis of left wrist Benign essential HTN Bilateral leg pain Bilateral shoulder pain Chronic intractable pain Chronic low back pain Chronic neck pain Chronic sinusitis Chronic use of opiate for therapeutic purpose. Eustachian tube dysfunction Gait difficulty History of BPH History of left hip replacement History of TIAs Hyperlipidemia, unspecified Left wrist effusion ULLOA (nonalcoholic steatohepatitis) Neuropathy of leg Osteoarthritis of carpometacarpal joint of left thumb Prediabetes PTSD (post-traumatic stress disorder) Pulsatile tinnitus Right elbow pain Type 2 diabetes mellitus without complications Vertigo Histories Past Medical History: Resolved Tobacco use ([id number]): Resolved on 09/30/2022 at 67 years. 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 Family History: Cancer Brother Unknown Father Mother Procedure history: Epidural Steroid Injection - Lumbar on 06/21/2024 at 68 Years. Comments: 06/21/2024 2:06 PM CDT - Gin Sutton RN auto-populated from documented surgical case Procedure ([id number]) on 08/29/2021 at 65 Years. Comments: 04/20/2024 4:41 PM CDT - Gin Cordero Septoplasty w/ turbinoplasty w/ Dr. zhao Esophagogastroduodenoscopy ([id number]) on 12/18/2020 at 65 Years. I&D Lower Extremity (Right, Ankle R) on 09/14/2018 at 62 Years. Comments: 09/14/2018 11:14 AM ROMAN Cordova RN auto-populated from documented surgical case Biopsy Bone (Right, Ankle R) on 09/14/2018 at 62 Years. Comments: 09/14/2018 11:14 AM ROMAN Cordova RN auto-populated from documented surgical case Application Wound Vac (Right, Ankle R) on 09/14/2018 at 62 Years. Comments: 09/14/2018 11:14 AM ROMAN Cordova RN auto-populated from documented surgical case I&D Lower Extremity (Right, Ankle R) on 05/19/2018 at 62 Years. Comments: 05/19/2018 2:07 PM ROMAN Bansal RN auto-populated from documented surgical case Application Wound Vac on 05/19/2018 at 62 Years. Comments: 05/19/2018 2:07 PM ROMAN Bansal RN auto-populated from documented surgical case I&D Lower Extremity (Ankle R) on 05/16/2018 at 62 Years. Comments: 05/16/2018 4:10 PM ROMAN Haynes RN auto-populated from documented surgical case Application Wound Vac (Ankle, Right) on 05/16/2018 at 62 Years. Comments: 05/16/2018 4:10 PM ROMAN Haynes RN auto-populated from documented surgical case Hip replacement ([id number]). Comments: 09/12/2018 12:08 PM ROMAN Marte RN left Shoulder surgery. Comments: 04/20/2024 4:42 PM ROMAN Cordero RT Tendon Repair 09/12/2018 12:09 PM ROMAN Marte RN right shoulder surgery. Comments: 04/20/2024 4:42 PM ROMAN Cordero LT Rotator Cuff Repair 09/12/2018 12:09 PM ROMAN Marte RN left wrist fusion. Comments: 04/20/2024 1:48 PM ROMAN Cordero RT Wrist Surgery- Frzn wrist- 2 screws 09/12/2018 12:09 PM ROMAN Marte RN right side elbow surgery. Comments: 04/20/2024 1:50 PM ROMAN Cordero LT Elbow surgery from elbow to forearm 09/12/2018 12:09 PM ROMAN Marte RN ORIF left elbow Tonsillectomy ([id number]). Colonoscopy ([id number]). Comments: 04/20/2024 1:50 PM ROMAN Cordero Colonoscopy w/ polypectomy 12/07/18 09/12/2018 12:10 PM URSZULAT - Eri Marte RN several for multiple polyps -has one scheduled November 2018 Operation ([id number]). Comments: 04/20/2024 4:43 PM ROMAN Cordero L3-L5 procedure Social History Social & Psychosocial Habits Alcohol 09/06/2024 Use: Current Frequency: 1-2 times per year Employment/School 09/06/2024 Status: Employed Description: Releam Home/Environment 09/06/2024 Lives with: Spouse Injuries/Abuse/Neglect in household: No Type of abuse in household: denies abuse Nutrition/Health 09/06/2024 Caffeine intake amount: current Substance Abuse 09/06/2024 Use: Past Tobacco 09/06/2024 Use: Never (less than 100 in l Electronic Cigarette 09/06/2024 Electronic Cigarette Use: Never . Physical Examination VS/Measurements No qualifying data available Review / Management Results review: No qualifying data available. Reason For Exam Neck pain with radiculopathy into both shoulders Report MRI Cervical Spine WO Contrast HISTORY: Neck pain with radiculopathy TECHNIQUE: Parasagittal and axial multisequence MRI imaging of the cervical spine without IV contrast. Comparison: No previous MRI. X-rays of the cervical spine dated 07/26/2024 FINDINGS: The spine is normal segmented. The vertebral body heights are grossly preserved. Alignment is maintained. There is normal curvature. The bone marrow has normal signal intensity. Multilevel loss of intervertebral disc at, more pronounced at C4-C5, C5-C6, and C6-C7. There is no destructive bony lesions. The prevertebral and paraspinal soft tissues are unremarkable. The posterior elements appear normal. No abnormalities identified at the craniocervical junction. The visualized spinal cord demonstrate normal signal intensity and morphology. At C2-C3, there is mild diffuse disc bulge without spinal canal stenosis. There is moderate left neural foramina narrowing secondary to uncovertebral osteophyte. Mild right neural foramina narrowing is present. At C3-C4, there is mild diffuse disc bulge without spinal canal stenosis. There is severe right neural foramina narrowing secondary to uncovertebral osteophytes and facet arthropathy. Mild to moderate left neural from narrowing is present. At C4-C5, there is posterior endplate osteophytes, effacing the ventral thecal sac, without spinal canal stenosis. There is severe bilateral neural foramina narrowing secondary to uncovertebral osteophytes and facet arthropathy. At C5-C6, there is diffuse disc bulge without spinal canal stenosis. There is severe bilateral neural foramina narrowing secondary to uncovertebral osteophytes and facet arthropathy. At C6-C7, there is posterior endplate osteophytes, resulting in mild thecal sac narrowing and spinal canal stenosis. There is severe bilateral neural foramina narrowing secondary to uncovertebral osteophyte and facet arthropathy. At C7-T1, there is mild diffuse disc bulge without spinal canal stenosis. No neural foramina narrowing. IMPRESSION: 1. MULTILEVEL LUMBAR SPONDYLOSIS, DESCRIBED ABOVE. NO SEVERE SPINAL CANAL STENOSIS. 2. SEVERE RIGHT NEURAL FROM NARROWING AT C3-C4. 3. SEVERE BILATERAL NEURAL FROM NARROWING AT C4-C5, C5-C6, AND C6-C7. 4. MODERATE LEFT NEURAL FROM NARROWING AT C2-C3. Electronically signed by Will Lazcano M.D.. Assessment and Plan Citizen Of [place] Society of Anesthesiologists#(ASA) physical status classification: Class III. Anesthetic Preoperative Plan Anesthetic technique: Neuraxial. Regional: Epidural. Electronically routed to: Clarence Henderson CRNA Electronically signed by: Clarence Henderson CRNA Signed on: 09/12/2024 07:14 AM Patient Care team information Personnel Name: Carlos Enrique Obando MD Address: Address: [address] [place] [address]
--- OUTSIDE RECORDS SUMMARY | 2024-11-23 00:07 | XMS_ITS | Continuity of Care Document ---
Author Organization [facility] Address [address] [place] [address] Care Team Providers Care Restaurant Delivery Driver Name Role Phone Carlos Enrique Obando Primary Care Physician Encounter Date(s): 06/21/24 - 06/21/24 [facility] [address] [place] [address]- us Discharge Disposition: 01 Discharged to Home or Self Care Attending Physician: MERON Rashid Admitting Physician: MERON Rashid Allergies, Adverse Reactions, Alerts No Known Allergies [...] Start Date: 04/22/23 10:25:00 AM CDT, Pharmacy: [facility], 173, cm, 04/09/23 15:48:00 CDT, [...] Start Date: 03/09/23 10:48:00 AM CDT, Pharmacy: [facility], 173, cm, 03/09/23 10:20:00 CDT, Height/Length Measured, 89.5, kg, 03/09/23 10:22:00 CDT, Weight Dosing Start Date: 03/09/23 Stop Date: 08/27/23 Status: Completed amLODIPine 5 mg oral tablet 1 tab(s), Oral, Daily, # 90 tab(s), 3 Refill(s), Start Date: 08/27/23 8:41:00 AM CDT, Pharmacy: [facility], 173, cm, 04/09/23 15:48:00 CDT, [...] Date: 03/31/24 Stop Date: 06/21/24 Status: Completed baclofen 10 mg oral tablet 1 tab(s), Oral, TID, # 30 tab(s), 0 Refill(s), Start Date: 03/09/23 10:49:00 AM CDT, Pharmacy: [facility], 173, cm, 03/09/23 10:20:00 CDT, Height/Length Measured, 89.5, kg, 03/09/23 10:22:00 CDT,Weight Dosing Start Date: 03/09/23 Stop Date: 04/22/23 Status: Completed baclofen 10 mg oral tablet 1 tab(s), Oral, TID, # 30 tab(s), 1 Refill(s), Start Date: 04/22/23 11:37:00 AM CDT, Pharmacy: [facility], 173, cm, 04/09/23 15:48:00 CDT, Height/Length Measured, 87.6, kg, 04/09/23 15:50:00 CDT, Weight Dosing Start Date: 04/22/23 Stop Date: 03/31/24 Status: Completed baclofen 10 mg oral tablet 0 Refill(s), Start Date: 11/18/22 1:27:00 PM DRUG ABUSE WORKER Start Date: 11/18/22 Stop Date: 03/09/23 Status: Discontinued baclofen 10 mg oral tablet 1 tab(s), Oral, TID, PRN PRN for pain, 0 Refill(s), Start Date: 05/15/18 11:15:00 PM CDT Start Date: 05/15/18 Stop Date: 06/16/19 Status: Completed baclofen 10 mg tablet baclofen 10 mg tablet, 1 tab(s), Oral, TID, # 30 tab(s), 2 Refill(s), Pharmacy: [facility], 173, cm, 04/09/23 15:48:00 CDT, Height/Length Measured, 87.6, kg, 04/09/23 15:50:00 CDT, Weight Dosing Start Date: 06/08/23 Stop Date: 03/31/24 Status: Completed baclofen 10 mg tablet baclofen 10 mg tablet, 1 tab(s), Oral, TID, # 30 tab(s), 2 Refill(s), Pharmacy: [facility], 173, cm, 04/09/23 15:48:00 CDT, [...] 0 Refill(s), Start Date: 11/09/18 6:34:00 PM DRUG ABUSE WORKER, Pharmacy: [facility] Start Date: 11/09/18 Stop Date: 12/16/18 Status: Completed ciprofloxacin 750 mg oral tablet 1 tab(s), Oral, q12hr, 2h away from dairy, X 14 days, # 28 tab(s), 2 Refill(s), Start Date: :21:00 PM DRUG ABUSE WORKER, Pharmacy: [facility] Start Date: 09/19/18 Stop Date: 11/09/18 [...] 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 daily 3 months 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 TURN SEWER, # 1 boxes, 0 Refill(s), 03/16/19 6:45:00 [...] 3 Refill(s), Start Date: 12/20/18 1:37:00 PM DRUG ABUSE WORKER, Pharmacy: [facility] Start Date: 12/20/18 Stop Date: 09/30/22 Status: Completed finasteride 5 mg oral tablet 1 tab(s), Oral, Daily, # 30 tab(s), 0 Refill(s), Start Date: 03/31/24 10:43:00 AM CDT Start Date: 03/31/24 Stop Date: 06/21/24 Status: Completed fluticasone 50 mcg/inh nasal spray 2 spray(s), Nasal, BID, X 42 days, # 16 gm, 11 Refill(s), Start Date: 04/03/24 11:55:00 AM CDT, Pharmacy: [facility], 173, cm, 03/31/24 10:46:00 CDT, Height/Length Measured, [...] Start Date: 04/19/24 10:19:00 AM CDT, Pharmacy: [facility] #[id number], 173, cm, 03/31/24 10:46:00 CDT, Height/Length Measured, 88.2, kg, 03/31/24 10:51:00 CDT, Weight Dosing Start Date: 04/19/24 Stop Date: 06/21/24 Status: Completed ibuprofen 600 mg oral tablet 1 tab(s), Oral, QID, PRN PRN for pain, with food or milk, # 30 tab(s), 0 Refill(s), Start Date: 03/03/23 1:53:00 PM CDT, Pharmacy: [facility], 173, cm, 11/18/22 13:25:00 DRUG ABUSE WORKER, Height/Length Measured, 89.5, kg, 03/03/23 12:25:00 CDT, [...] Start Date: 03/31/24 11:26:00 AM CDT, Pharmacy: [facility], 173, cm, 03/31/24 10:46:00 CDT, Height/Length Measured, 88.2, kg, 03/31/24 10:51:00 CDT, Weight Dosing Start Date: 03/31/24 Stop Date: 04/11/24 Status: Completed levoFLOXacin 500 mg oral tablet 1 tab(s), Oral, Daily, For chronic recurrent sinusitis, X 10 days, # 10 tab(s), 0 Refill(s), Start Date: 04/11/24 3:29:00 PM CDT, Pharmacy: [facility], 173, cm, 03/31/24 10:46:00 CDT, Height/Length Measured, 88.2, kg, 03/31/24 10:51:00 CDT, Weight Dosing Start Date: 04/11/24 Stop Date: 04/19/24 Status: Completed levoFLOXacin 500 mg oral tablet 1 tab(s), Oral, Daily, For chronic recurrent sinusitis, # 10 tab(s), 0 Refill(s), Start Date: 04/19/24 10:19:00 AM CDT, Pharmacy: [facility] #[id number], 173, cm, 03/31/24 10:46:00 CDT, Height/Length Measured, 88.2, kg, 03/31/24 10:51:00 CDT, Weight Dosing Start Date: 04/19/24 Stop Date: 06/06/24 Status: Completed linezolid 600 mg oral tablet 1 tab(s), Oral, q12hr, generic please, # 28 tab(s), 0 Refill(s), Start Date: 11/16/18 11:41:00 AM DRUG ABUSE WORKER, Pharmacy: [facility] Start Date: 11/16/18 Stop Date: 12/02/18 Status: Completed Medrol 4 mg oral tablet 1 packet(s), Oral, ONETIME, as directed on package labeling, # 21 tab(s), 0 Refill(s), Start Date: 11/18/22 1:39:00 PM DRUG ABUSE WORKER, Pharmacy: [facility], 173, cm, 11/18/22 13:25:00 DRUG ABUSE WORKER, Height/Length Measured, 86.3, kg, 11/18/22 13:27:00 DRUG ABUSE WORKER, Weight Dosing Start Date: 11/18/22 Stop Date: 03/09/23 Status: Completed metFORMIN 500 mg oral tablet 0.5 tab(s), Oral, BID, # 30 tab(s), 11 Refill(s), Start Date: 04/03/24 11:56:00 AM CDT, Pharmacy: [facility], 173, cm, 03/31/24 10:46:00 CDT, Height/Length Measured, 88.2, kg, 03/31/24 10:51:00 CDT, Weight Dosing Start Date: 04/03/24 Stop Date: 04/19/24 Status: Completed metFORMIN 500 mg oral tablet 0.5 tab(s), Oral, BID, # 30 tab(s), 11 Refill(s), Start Date: 04/19/24 10:19:00 AM CDT, [facility]: [id number], 173, cm, 03/31/24 10:46:00 CDT, Height/Length Measured, 88.2, kg, 03/31/2410:51:00 CDT, Weight Dosing Start Date: 04/19/24 Stop Date: 06/21/24 Status: Completed MiraLax oral powder for reconstitution 17 gm, Oral, Daily, Dissolve in water before taking, # 255 gm, 0 Refill(s), Start Date: 05/21/18 10:05:00 AM CDT, [id number] Start Date: 05/21/18 Stop Date: 03/31/24 Status: Completed MS Contin 15 mg oral tablet, extended release 2 tab(s), Oral, q12hr, # 28 tab(s), 0 Refill(s), Start Date: 05/21/18 10:04:00 AM CDT, [id number] Start Date: 05/21/18 Stop Date: 09/09/18 Status: Completed MS Contin 30 mg oral tablet, extended release 1 tab(s), Oral, q12hr interval, 0 Refill(s), Start Date: 09/12/18 9:49:00 AM CDT Start Date: 09/12/18 Stop Date: 06/16/19 Status: Completed Multi-Day Plus Minerals oral tablet 1 tab(s), Oral, Daily, # 30 tab(s), 0 Refill(s), Start Date: 09/30/22 3:49:00 PM DRUG ABUSE WORKER Start Date: 09/30/22 Stop Date: 06/21/24 Status: Completed oxycodone-acetaminophen 10 mg-325 mg oral tablet 0 Refill(s), Start Date: 11/18/22 1:27:00 PM DRUG ABUSE WORKER Start Date: 11/18/22 Stop Date: 04/09/23 Status: [...] Start Date: 05/17/18 4:24:00 PM CDT, Pharmacy: [facility] [id number] Start Date: 05/17/18 Stop Date: 09/09/18 Status: Completed Percocet 5/325 oral tablet See Instructions, PRN PRN for pain, 1 tab(s) Oral q6hr not to exceed 4000 mg acetaminophen per day,# 60 tab(s), 0 Refill(s), Start Date: 09/14/18 9:23:00 AM CDT, Pharmacy: [facility] Start Date: 09/14/18 Stop Date: 06/16/19 Status: Completed pregabalin 75 mg oral capsule 1 cap(s), Oral, BID, 0 Refill(s), Start Date: 03/31/24 10:44:00 AM CDT Start Date: 03/31/24 Status: Ordered Senokot S 50 mg-8.6 mg oral tablet 1 tab(s), Oral, BID, X 10 days, # 20 tab(s), 0 Refill(s), Start Date: 05/21/18 10:05:00 AM CDT, Pharmacy: [facility] [id number] Start Date: 05/21/18 Stop Date: 05/31/18 Status: Completed tamsulosin 0.4 mg oral capsule 1 cap(s), Oral, Daily, # 90 cap(s), 3 Refill(s), Start Date: 12/20/18 1:38:00 PM DRUG ABUSE WORKER, Pharmacy: [facility] Start Date: 12/20/18 Stop Date: [...] Date: 03/03/23 1:54:00 PM CDT, Pharmacy: [facility], 173, cm, 11/18/22 13:25:00 DRUG ABUSE WORKER, Height/Length Measured, 89.5, kg, 03/03/23 12:25:00 CDT, Weight Dosing Start Date: 03/03/23 Stop Date: 03/31/24 Status: Completed vancomycin 1 g intravenous injection IV, q12hr interval, prescribed by Dr Perdue, 0 Refill(s), Start Date: 10/21/18 8:45:00 AM DRUG ABUSE WORKER Start Date: 10/21/18 Stop Date: 11/16/18 Status: Completed Zinc 140 mg (as elemental zinc 50 mg) oral tablet 1 tab(s), Oral, Daily, # 90 tab(s), 0 Refill(s), Start Date: 09/30/22 3:48:00 PM DRUG ABUSE WORKER Start Date: 09/30/22 Stop Date: 06/21/24 Status: [...] Steroid Injection - Lumbar 1 06/21/24 Completed NJX AA&/STRD TFRM EPI L/S 1 06/21/24 Completed Procedure 2 08/29/21 Completed [...] Elbow surgery from elbow to forearm 14left [id number] procedure 16left 17LT Rotator Cuff Repair 18right 19RT Tendon Repair 20right side 21RT Wrist Surgery- Frzn wrist- 2 screws Results Most recent to oldest [Reference Range]: 1 2 3 Heart Rate Monitored [60-100 bpm] 58 bpm *LOW* (06/21/24 10:35 AM) 57 bpm *LOW* (06/21/24 10:20 AM) 57 bpm *LOW* (06/21/24 8:11 AM) Respiratory Rate [14-20 br/min] 16 br/min (06/21/24 10:35 AM) 16 br/min (06/21/24 10:20 AM) 16 br/min (06/21/24 8:11 AM) Radiology Reports * Exam Date Time Procedure Performing Provider Status 06/21/24 10:28 AM CR Fluoro Less than 1 Hour Jacqui We irather; Auth (Verified) Notes: (CR Fluoro Less than 1 Hour) Reason For Exam: PAIN Report C-ARM FLUOROSCOPY INDICATIONS: Back pain. TECHNIQUE: Total fluoroscopy time: 0.3 minutes. Total dose: 4.39 mGy. Number of images: 5. COMPARISON: None available. FINDINGS: See below. IMPRESSION: 1. Fluoroscopic support provided intraoperatively. Please refer to procedural notes for additional information. Electronically signed by Lucien Bell. Final Dictated by: Lucien Bell MD Dictated DT/TM: 06/21/2024 10:31 am Signed by: Lucien Bell MD Signed (Electronic Signature): 06/21/2024 10:32 am Vital Signs Most recent to oldest [Reference Range]: 1 2 3 Temperature Temporal Artery [36.5-37.3 DegC] 36.5 DegC (06/21/24 10:20 AM) 36.3 DegC *LOW* (06/21/24 8:11 AM) Heart Rate Monitored [60-100 bpm] 58 bpm *LOW* (06/21/24 10:35 AM) 57 bpm *LOW* (06/21/24 10:20 AM) 57 bpm *LOW* (06/21/24 8:11 AM) Respiratory Rate [14-20 br/min] 16 br/min (06/21/24 10:35 AM) 16 br/min (06/21/24 10:20 AM) 16 br/min (06/21/24 8:11 AM) SpO2 [95 %] 100 % (06/21/24 10:35 AM) 98 % (06/21/24 10:20 AM) 99 % (06/21/24 8:11 AM) SpO2 Location Left hand (06/21/24 10:35 AM) Left hand (06/21/24 10:20 AM) Blood Pressure [90-130/60-90 mmHg] 140/75mmHg *HI* (06/21/24 10:20 AM) Systolic Blood Pressure Monitored [90-130 mmHg] 136 mmHg *HI* (06/21/24 10:35 AM) 136 mmHg *HI* (06/21/24 10:35 AM) Diastolic Blood Pressure Monitored [60-90 mmHg] 80 mmHg (06/21/24 10:35 AM) 80 mmHg (06/21/24 10:35 AM) Height/Length Estimated 180 cm (06/21/24 8:11 AM) Weight Estimated 98 kg (06/21/24 8:11 AM) Weight Dosing 98 kg (06/21/24 8:11 AM) BSA Estimated 2.21 m2 (06/21/24 8:11 AM) Body Mass Index Estimated 30.25 kg/m2 (06/21/24 8:11 AM) Social History Social History Type Response Sex Male Anesthesiology Progress note * Clarence Ray CRNA: PERFORM, SIGN, VERIFY Event Display: Anesthesiology Progress Note Authored Date: Patient: EDILBERTO DURAND Age: 68 years Sex: Male : 1955 Associated Diagnoses: None Author: Clarence Ray CRNA Visit Information Vital Signs in patients normal range Respiratory function stable Cardiovascular function and hydration status stable Mental status recovered to preop normal Pain control satisfactory Nausea and vomiting control satisfactory [ x ] Patient received regional block with long acting local anesthetic. Full recovery is expected to occur within 48-72 hrs. Comments: Health Status Current medications: (Selected) Inpatient Medications Ordered Decadron: 10 mg, 1 mL, 150 mL/hr, EPI, ONETIME [id number]: 15 mL, EPI, ONETIME Prescriptions Prescribed DME - Hypafix Tape 2 X10 yards: See Instructions, Ulcer right 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 daily 3 months, 1 EA, 0 Refill(s) Documented Medications Documented diclofenac sodium 25 mg oral delayed release tablet: 1 tab(s), Oral, TID, 0 Refill(s) pregabalin 75 mg oral capsule: 1 cap(s), Oral, BID, 0 Refill(s) Histories Family History: Cancer Brother Procedure history: Procedure ([id number]) on 08/29/2021 at 65 Years. Comments: 04/20/2024 4:41 PM ROMAN Cordero Septoplasty w/ turbinoplasty w/ Dr. zhao Esophagogastroduodenoscopy ([id number]) on 12/18/2020 at 65 Years. I&D Lower [...] auto-populated from documented surgical case Hip replacement ([id number]). Comments: 09/12/2018 12:08 PM ROMAN Marte RN left Shoulder surgery. Comments: 04/20/2024 4:42 PM ROMAN Cordero RT Tendon Repair 09/12/2018 12:09 PM ROMAN Marte RN right shoulder surgery. Comments: 04/20/2024 4:42 PM ROMAN Cordero LT Rotator Cuff Repair 09/12/2018 12:09 PM ROMAN Marte RN left wrist fusion. Comments: 04/20/2024 1:48 PM URSZULAT Mac Cordero RT Wrist Surgery- Frzn wrist- 2 screws 09/12/2018 12:09 PM ROMAN Marte RN right side elbow surgery. Comments: 04/20/2024 1:50 PM URSZULAT Mac Cordero LT Elbow surgery from elbow to forearm 09/12/2018 12:09 PM ROMAN Marte RN ORIF left elbow Tonsillectomy ([id number]). Colonoscopy ([id number]). Comments: 04/20/2024 1:50 PM URSZULAT Mca Cordero Colonoscopy w/ polypectomy 12/07/18 09/12/2018 12:10 PM ROMAN Marte RN several for multiple polyps -has one scheduled November 2018 Operation ([id number]). Comments: 04/20/2024 4:43 PM URSZULAT Mac Cordero L3-L5 procedure Social History Social & Psychosocial Habits Alcohol 06/21/2024 Use: Current Frequency: 1-2 times per year Employment/School 06/21/2024 Status: Employed Home/Environment 06/21/2024 Lives with: Spouse Injuries/Abuse/Neglect in household: No Type of abuse in household: denies abuse Nutrition/Health 06/21/2024 Caffeine intake amount: current Substance Abuse 06/21/2024 Use: Past Tobacco 06/21/2024 Use: Never (less than 100 in l Electronic Cigarette 06/21/2024 Electronic Cigarette Use: Never . Physical Examination VS/Measurements Vital Signs06/21/2024 10:20 AM CDT Temperature Temporal Artery 36.5 DegC Heart Rate Monitored 57 bpm LOW Respiratory Rate 16 br/min SpO2 98 % SpO2 Location Left hand Systolic Blood Pressure Monitored 140 mmHg HI Diastolic Blood Pressure Monitored 75 mmHg 06/21/2024 8:11 AM CDT Temperature Temporal Artery 36.3 DegC LOW Heart Rate Monitored 57 bpm LOW Respiratory Rate 16 br/min SpO2 99 % Systolic Blood Pressure Monitored 140 mmHg HI Diastolic Blood Pressure Monitored 82 mmHg Electronically routed to: Clarence Ray CRNA Electronically signed by: Clarence Ray CRNA Signed on: 06/21/2024 10:25 AM * Clarence Ray CRNA: MODIFY, SIGN, PERFORM, SIGN, VERIFY, MODIFY, SIGN, MODIFY, SIGN Event Display: Anesthesiology Progress Note Authored Date: [id number] Patient: EDILBERTO DURAND Age: 68 years Sex: Male : 1955 Associated Diagnoses: None Author: Clarence Ray CRNA Preoperative Information Procedure/ Case: Epidural Steroid Injection - Lumbar Left L3-L4 TF KOTA, Location scheduled: Main Operating Room Anesthesiologist scheduled: Clarence Ray CRNA NPO for at least 8 hours Anesthesia history Patient's history: negative. Family's history: negative. History of Present Illness The patient presents for preanesthesia evaluation with See physician history and physical for details not relevant to anesthesia immediate assessment., Low Back Pain, LEFT Left SI Joint Injection 05/30/24-0% relief History of Present Illness Edilberto Durand presents with chief complaint of Low Back Pain, LEFTLeft SI Joint Injection 05/30/24-0% relief. Last Seen:06/06/24 by: Garfield Florez MD Current concerns/issues: This is a 68-year-old male who had a left SI joint injection on 05/30/2024 but unfortunately did notexperience any relief. He is here today as he has been falling frequently due to the pain in his left lower back. He states that he has noticed some burning in his anterior thigh that ends at the knee. He is still on Lyrica, diclofenac, and Tylenol. He has been on light duty at work with a 10 poundlifting restriction but states that his employer will not let him return until he is in less pain. He had a recent MRI. He is ambulating with a walker. He is now obese, has diabetes (last A1c 6.7 on 03/31/2024), does not smoke. and This is a 68-year-old male with severe pain in the left lower back and burning in the anterior thigh. We discussed that his symptoms today seem the most consistent with radiculopathy. The pain issevere and he is unable to return to work until it is under better control. Due to increased falling, I do not feel comfortable providing something that could be sedating so I recommended that he continue his Lyrica, diclofenac, and Tylenol. If he would like dosing adjustments, recommended that he contact the prescribing provider. Reviewing his most recent MRI, he has significant left neural foraminal narrowing at L3-L4 which overlaps with the distribution of his symptoms. In light of no relieffrom the left SI joint injection, I think it is reasonable to attempt to left L3-L4 transforaminal KOTA. I will see him back 2 weeks afterwards. In regards to the x- ray report stating that there is a new L3 compression fracture on 05/24/2024, satellite imaging for a CT abdomen and pelvis from February demonstrate similar findings and the MRI obtained between the 2 did not demonstrate any acute fracture. All questions were answered, patient and expressed understanding and are in agreement with our plan. . Review of Systems Musculoskeletal: Negative except as documented in history of present illness. Health Status Allergies: Allergic Reactions (Selected) No Known Allergies No Known Medication Allergies, Allergies (2) Active Reaction No Known Allergies None Documented No Known Medication Allergies None Documented Current medications: (Selected) Prescriptions Prescribed DME - Hypafix Tape 2 X10 yards: See Instructions, Ulcer right 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 daily 3 months, 1 EA, 0 Refill(s) DME - Hypafix Tape 2 X10 yards: See Instructions, Ulcer right 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 daily 3 months, 1 EA, 0 Refill(s) DME - Optifoam Gentle 4 x4 : See Instructions, Ulcer right 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 daily 3 months 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 TURN SEWER, 1 boxes, 0 Refill(s) DME - Claudette Matrix 28cm 4.34 sq. inch: See Instructions, Diagnosis Code: ULCER Length of Need:3 MONTHS Right lateral 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 drainage change every other day.gave 6 pieces from our stock please replace, 1 EA, 0 Refill(s) fluticasone 50 mcg/inh nasal spray: 2 spray(s), Nasal, BID, for 42 days, 16 gm, 11 Refill(s) metFORMIN 500 mg oral tablet: 0.5 tab(s), Oral, BID, 30 tab(s), 11 Refill(s) Documented Medications Documented Acidophilus Probiotic Blend: 1 tab, Oral, Daily, 0 Refill(s) Multi-Day Plus Minerals oral tablet: 1 tab(s), Oral, Daily, 30 tab(s), 0 Refill(s) Zinc 140 mg (as elemental zinc 50 mg) oral tablet: 1 tab(s), Oral, Daily, 90 tab(s), 0 Refill(s) amLODIPine 10 mg oral tablet: 1 tab(s), Oral, Daily, 30 tab(s), 0 Refill(s) aspirin 81 mg oral delayed release tablet: 1 tab(s), Oral, Daily, 30 tab(s), 0 Refill(s) atorvastatin 20 mg oral tablet: 1 tab(s), Oral, Daily, 30 tab(s), 0 Refill(s) diclofenac sodium 25 mg oral delayed release tablet: 1 tab(s), Oral, TID, 0 Refill(s) finasteride 5 mg oral tablet: 1 tab(s), Oral, Daily, 30 tab(s), 0 Refill(s) pregabalin 75 mg oral capsule: 1 cap(s), Oral, BID, 0 Refill(s), No qualifying data available Problem list: All Problems Benign essential HTN / 6096868 / Confirmed Bilateral leg pain / 866091391 / Confirmed Bilateral shoulder pain / 70749873 / Confirmed Chronic low back pain / 255195374 / Confirmed Chronic pain syndrome / 9837248587 / Confirmed Chronic sinusitis / 41633727 / Confirmed Eustachian tube dysfunction / 10035255 / Confirmed Gait difficulty / 371272171 / Confirmed History of BPH / 326036368 / Confirmed History of left hip replacement / 5520270671 / Confirmed History of TIAs / 4244558569 / Confirmed Hyperlipidemia, unspecified / 13131851 / Confirmed ULLOA (nonalcoholic steatohepatitis) / 6789439148 / Confirmed Prediabetes / 2684439942 / Confirmed PTSD (post-traumatic stress disorder) / 34705781 / Confirmed Pulsatile tinnitus / 666335455 / Confirmed Right elbow pain / 065284767 / Confirmed Type 2 diabetes mellitus without complications / 911050050 / Confirmed Vertigo / 4394655967 / Confirmed Resolved: Tobacco use / 6817866166 Canceled: HTN (hypertension) / 1674775266, Active Problems (19) Benign essential HTN Bilateral leg pain Bilateral shoulder pain Chronic low back pain Chronic pain syndrome Chronic sinusitis Eustachian tube dysfunction Gait difficulty History of BPH History of left hip replacement History of TIAs Hyperlipidemia, unspecified ULLOA (nonalcoholic steatohepatitis) Prediabetes PTSD (post-traumatic stress disorder) Pulsatile tinnitus Right elbow pain Type 2 diabetes mellitus without complications Vertigo Histories Past Medical History: Resolved Tobacco use ([id number]): Resolved on 09/30/2022 at 67 years. 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 Family History: Cancer Brother Procedure history: Procedure ([id number]) on 08/29/2021 at 65 Years. Comments: 04/20/2024 4:41 PM CDT - Gin Cordero Septoplasty w/ turbinoplasty w/ Dr. zhao Esophagogastroduodenoscopy ([id number]) on 12/18/2020 at 65 Years. I&D Lower Extremity (Right, Ankle R) on 09/14/2018 at 62 Years. Comments: 09/14/2018 11:14 AM ROMAN - Miguel Cordova RN auto-populated from documented surgical case [...] 62 Years. Comments: 05/19/2018 2:07 PM ROMAN - Glenna Bansal RN auto-populated from documented surgical case Application Wound Vac on 05/19/2018 at 62 Years. Comments: 05/19/2018 2:07 PM ROMAN Bansla RN auto-populated from documented surgical case I&D Lower Extremity (Ankle R) on 05/16/2018 at 62 Years. Comments: 05/16/2018 4:10 PM ROMAN Haynes RN auto-populated from documented surgical case Application Wound Vac (Ankle, Right) on 05/16/2018 at 62 Years. Comments: 05/16/2018 4:10 PM ROMAN Haynes RN auto-populated from documented surgical case Hip replacement ([id number]). Comments: 09/12/2018 12:08 PM ROMAN Marte RN left Shoulder surgery. Comments: 04/20/2024 4:42 PM URSZULAT - Gin Cordero RT Tendon Repair 09/12/2018 12:09 PM ROMAN Marte RN right shoulder surgery. Comments: 04/20/2024 4:42 PM URSZULAT Mac Cordero LT Rotator Cuff Repair 09/12/2018 12:09 PM ROMAN Marte RN left wrist fusion. Comments: 04/20/2024 1:48 PM CDT - Gin Cordero RT Wrist Surgery- Frzn wrist- 2 screws 09/12/2018 12:09 PM ROMAN Marte RN right side elbow surgery. Comments: 04/20/2024 1:50 PM CDT - Gin Cordero LT Elbow surgery from elbow to forearm 09/12/2018 12:09 PM ROMAN Marte RN ORIF left elbow Tonsillectomy ([id number]). Colonoscopy ([id number]). Comments: 04/20/2024 1:50 PM ROMAN Cordero Colonoscopy w/ polypectomy 12/07/18 09/12/2018 12:10 PM ROMAN Marte RN several for multiple polyps -has one scheduled November 2018 Operation ([id number]). Comments: 04/20/2024 4:43 PM ROMAN Cordero L3-L5 procedure Social History Social & Psychosocial Habits Alcohol 06/06/2024 Use: Current Frequency: 1-2 times per year Employment/School 06/06/2024 Status: Employed Home/Environment 06/06/2024 Lives with: Spouse Injuries/Abuse/Neglect in household: No Type of abuse in household: denies abuse Nutrition/Health 06/06/2024 Caffeine intake amount: current Substance Abuse 06/06/2024 Use: Past Tobacco 06/06/2024 Use: Never (less than 100 in l Electronic Cigarette 06/06/2024 Electronic Cigarette Use: Never . Physical Examination VS/Measurements No qualifying data available General: Alert and oriented, No acute distress. Airway: Normal neck range of motion. Mallampati classification: I (soft palate, fauces, uvula, pillars visible). Respiratory: Lungs are clear to auscultation, Respirations are non-labored, Breath sounds are equal. Cardiovascular: Normal rate, Regular rhythm, No murmur. Musculoskeletal: Patient presents today for a Left L3L4 transforaminal lumbar epidural steroid injection. They were referred from the office of _DR. Florez. The patient reports that their pain has been present for 6 months. The character is reported as stabbing in the back and burning in the leg, with a location of left lower back and hip, and with an intensity of 7/10,not better but does go to 10/10 with twisting and bending. This has affected their functionality by difficulty with standing, walking, and bending, decreases ability to sleep consecutively he tosses and turns , affects their mood in that sad, and decreases coping ability. Exacerbating factors include standing and twisting, andrelieving factors are laying down. Conservative treatments attempted were none with a reported effectiveness of none. Medication managements include diclofenac with a reported effectiveness of none. Previous invasive treatments include Si injection in the right hip, which was effective for over a year. Diagnosis: Lumbar Radiculopathy . Review / Management Results review: No qualifying data available. ECG interpretation: SINUS RHYTHM BORDERLINE LEFT AXIS DEVIATION [QRS AXIS < -20]. Documentation reviewed: MRI Lumbar Spine WO Contrast 05/08/24 14:08:09 MRI Lumbar Spine WO Contrast CLINICAL HISTORY: back pain, requesting KOTA TECHNIQUE: Parasagittal and axial multisequence imaging of the lumbar spine performed without IV contrast enhancement. COMPARISON: No previous MRI. CT abdomen pelvis dated 03/03/2023 FINDINGS: For purposes of this dictation, it is assumed that there are 5 [id number], lumbar-type vertebrae, and the most caudal fully segmented lumbar vertebra is labeled L5. The vertebral body height is grossly well-maintained without compressive fracture. Alignment is maintained. Gentle dextroscoliosis. There is multilevel disc desiccation with mild disc space narrowing. There is no abnormal bone marrow signal or destructive bony lesions. The conus medullaris and cauda equina have normal morphology and signal intensity. The conus medullaris terminates at L1. The posterior elements and paraspinal soft tissues are normal. At T12-L1 and L1-L2, there is no disc herniation, spinal canal stenosis, neural foramina narrowing. At L2-L3, there is no significant disc herniation or spinal canal stenosis. There is a mild bilateral neural foramina narrowing secondary to intraforaminal disc protrusion. At L3-L4, there is a endplate osteophyte with ligamentum flavum thickening and bilateral facet arthropathy, resulting in mild thecal sac narrowing and spinal canal stenosis. There is a moderate to severe left neural foramina narrowing secondary to endplate bony spurring and facet arthropathy, likely impinging the left L3 exiting nerve roots. Mild right neural foramina narrowing is also present. At L4-L5, there is mild diffuse disc bulge without spinal canal stenosis. There is mild to moderatebilateral facet arthropathy resulting in moderate left and mild right neural foramina narrowing. At L5-S1, there is a moderate to severe right neural foramina narrowing secondary to endplate bony spurring and facet arthropathy. No significant left neural foramina narrowing or spinal canal stenosis. IMPRESSION: 1. MULTILEVEL LUMBAR SPONDYLOSIS, DESCRIBED ABOVE. NO SEVERE SPINAL CANAL STENOSIS. 2. MODERATE TO SEVERE LEFT NEURAL FROM NARROWING AT L3-L4. 3. MODERATE TO SEVERE RIGHT NEURAL FROM NARROWING AT L5-S1. Electronically signed by Will Lazcano M.D.. Signed By: Will Lazcano MD . Assessment and Plan [place] [employer]#(ASA) physical status classification: Class II. Anesthetic Preoperative Plan Premedication: None. Anesthetic technique: Neuraxial. Induction: . Maintenance airway: . Regional: Epidural. Postoperative pain management: Epidural. Risks discussed: Back pain, high spinal, toxic reaction to local anesthesia, bleeding, blood clot, need to repeat procedure, infection, hematoma, post dural puncture headache.. Informed consent: signed by patient. Electronically routed to: Clarence Ray CRNA Electronically signed by: Clarence Ray CRNA Signed on: 06/14/2024 09:32 AM Electronically routed to: Clarence Grieves, SPIRAL WINDING MACHINE HELPER Electronically signed by: Clarence Grieves, SPIRAL WINDING MACHINE HELPER Signed on: 06/14/2024 09:37 AM Electronically routed to: Clarence Grieves, SPIRAL WINDING MACHINE HELPER Electronically signed by: Clarence Grieves, SPIRAL WINDING MACHINE HELPER Signed on: 06/21/2024 09:48 AM Electronically routed to: Clarence Grieves, SPIRAL WINDING MACHINE HELPER Electronically signed by: Clarence Grieves, SPIRAL WINDING MACHINE HELPER Signed on: 06/21/2024 10:21 AM Modified by: Clarence Ray CRNA on 06/14/2024 09:37 AM Modified by: Clarence Ray CRNA on 06/21/2024 09:48 AM Modified by: Clarence Ray CRNA on 06/21/2024 10:21 AM Patient Care team information Personnel Name: Carlos Enrique Obando MD Address: Address: [address] [address]- [place]
--- OUTSIDE RECORDS SUMMARY | 2024-11-23 00:07 | XMS_ITS | Continuity of Care Document ---
Author Organization [facility] Address [address] [address] Care Team Providers Care [address] Magistrate Name Role Phone Carlos Enrique Obando Primary Care Physician Encounter Date(s): 06/22/24 - [facility] [address] [place] [address]- Discharge Disposition: Discharged to Home or Self [...] Start Date: 04/22/23 10:25:00 AM CDT, Pharmacy: [facility], 173, cm, 04/09/23 15:48:00 CDT, [...] Start Date: 03/09/23 10:48:00 AM CDT, Pharmacy: [facility], 173, cm, 03/09/23 10:20:00 CDT, Height/Length Measured, 89.5, kg, 03/09/23 10:22:00 CDT, Weight Dosing Start Date: 03/09/23 Stop Date: 08/27/23 Status: Completed amLODIPine 5 mg oral tablet 1 tab(s), Oral, Daily, # 90 tab(s), 3 Refill(s), Start Date: 08/27/23 8:41:00 AM CDT, Pharmacy: [facility], 173, cm, 04/09/23 15:48:00 CDT, Height/Length Measured, [...] Start Date: 03/09/23 10:49:00 AM CDT, Pharmacy: [facility], 173, cm, 03/09/23 10:20:00 CDT, Height/Length Measured, 89.5, kg, 03/09/23 10:22:00 CDT,Weight Dosing Start Date: 03/09/23 Stop Date: 04/22/23 Status: Completed baclofen 10 mg oral tablet 1 tab(s), Oral, TID, # 30 tab(s), 1 Refill(s), Start Date: 04/22/23 11:37:00 AM CDT, [facility], 173, cm, 04/09/23 15:48:00 CDT, Height/Length Measured, 87.6, kg, 04/09/23 15:50:00 CDT, Weight Dosing Start Date: 04/22/23 Stop Date: 03/31/24 Status: Completed baclofen 10 mg oral tablet 0 Refill(s), Start Date: 11/18/22 1:27:00 PM COMMERCIAL COORDINATOR Start Date: 11/18/22 Stop Date: 03/09/23 Status: Discontinued baclofen 10 mg oral tablet 1 tab(s), Oral, TID, PRN PRN for pain, 0 Refill(s), Start Date: 05/15/18 11:15:00 PM CDT Start Date: 05/15/18 Stop Date: 06/16/19 Status: Completed baclofen 10 mg tablet baclofen 10 mg tablet, 1 tab(s), Oral, TID, # 30 tab(s), 2 Refill(s), Pharmacy: [facility], 173, cm, 04/09/23 15:48:00 CDT, Height/Length Measured, 87.6, kg, 04/09/23 15:50:00 CDT, Weight Dosing Start Date: 06/08/23 Stop Date: 03/31/24 Status: Completed baclofen 10 mg tablet baclofen 10 mg tablet, 1 tab(s), Oral, TID, # 30 tab(s), 2 Refill(s), Pharmacy: [facility], 173, cm, 04/09/23 15:48:00 CDT, Height/Length Measured, [...] 0 Refill(s), Start Date: 11/09/18 6:34:00 PM COMMERCIAL COORDINATOR, Pharmacy: [facility] Start Date: 11/09/18 Stop Date: 12/16/18 Status: Completed ciprofloxacin 750 mg oral tablet 1 tab(s), Oral, q12hr, 2h away from dairy, X 14 days, # 28 tab(s), 2 Refill(s), Start Date: :21:00 PM COMMERCIAL COORDINATOR, Pharmacy: [facility] Start Date: 09/19/18 Stop Date: 11/09/18 [...] 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 daily 3 months 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, # 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, 0 Refill(s), 03/16/19 6:45:00 [...] 3 Refill(s), Start Date: 12/20/18 1:37:00 PM COMMERCIAL COORDINATOR, Pharmacy: [facility] Start Date: 12/20/18 Stop Date: 09/30/22 Status: Completed finasteride 5 mg oral tablet 1 tab(s), Oral, Daily, # 30 tab(s), 0 Refill(s), Start Date: 03/31/24 10:43:00 AM CDT Start Date: 03/31/24 Stop Date: 06/21/24 Status: Completed fluticasone 50 mcg/inh nasal spray 2 spray(s), Nasal, BID, X 42 days, # 16 gm, 11 Refill(s), Start Date: 04/03/24 11:55:00 AM CDT, Pharmacy: [facility], 173, cm, 03/31/24 10:46:00 CDT, Height/Length Measured, [...] Start Date: 04/19/24 10:19:00 AM CDT, Pharmacy: [facility] #[id number], 173, cm, 03/31/24 10:46:00 CDT, Height/Length Measured, 88.2, kg, 03/31/24 10:51:00 CDT, Weight Dosing Start Date: 04/19/24 Stop Date: 06/21/24 Status: Completed ibuprofen 600 mg oral tablet 1 tab(s), Oral, QID, PRN PRN for pain, with food or milk, # 30 tab(s), 0 Refill(s), Start Date: 03/03/23 1:53:00 PM CDT, [facility], 173, cm, 11/18/22 13:25:00 COMMERCIAL COORDINATOR, Height/Length Measured, 89.5, kg, 03/03/23 12:25:00 CDT, [...] Start Date: 03/31/24 11:26:00 AM CDT, Pharmacy: [facility], 173, cm, 03/31/24 10:46:00 CDT, Height/Length Measured, 88.2, kg, 03/31/24 10:51:00 CDT, Weight Dosing Start Date: 03/31/24 Stop Date: 04/11/24 Status: Completed levoFLOXacin 500 mg oral tablet 1 tab(s), Oral, Daily, For chronic recurrent sinusitis, X 10 days, # 10 tab(s), 0 Refill(s), Start Date: 04/11/24 3:29:00 PM CDT, Pharmacy: [facility], 173, cm, 03/31/24 10:46:00 CDT, Height/Length Measured, 88.2, kg, 03/31/24 10:51:00 CDT, Weight Dosing Start Date: 04/11/24 Stop Date: 04/19/24 Status: Completed levoFLOXacin 500 mg oral tablet 1 tab(s), Oral, Daily, For chronic recurrent sinusitis, # 10 tab(s), 0 Refill(s), Start Date: 04/19/24 10:19:00 AM CDT, Pharmacy: [facility] #[id number], 173, cm, 03/31/24 10:46:00 CDT, Height/Length Measured, 88.2, kg, 03/31/24 10:51:00 CDT, Weight Dosing Start Date: 04/19/24 Stop Date: 06/06/24 Status: Completed linezolid 600 mg oral tablet 1 tab(s), Oral, q12hr, generic please, # 28 tab(s), 0 Refill(s), Start Date: 11/16/18 11:41:00 AM COMMERCIAL COORDINATOR, Pharmacy: [facility] Start Date: 11/16/18 Stop Date: 12/02/18 Status: Completed Medrol 4 mg oral tablet 1 packet(s), Oral, ONETIME, as directed on package labeling, # 21 tab(s), 0 Refill(s), Start Date: 11/18/22 1:39:00 PM COMMERCIAL COORDINATOR, Pharmacy: [facility], 173, cm, 11/18/22 13:25:00 COMMERCIAL COORDINATOR, Height/Length Measured, 86.3, kg, 11/18/22 13:27:00 COMMERCIAL COORDINATOR, Weight Dosing Start Date: 11/18/22 Stop Date: 03/09/23 Status: Completed metFORMIN 500 mg oral tablet 0.5 tab(s), Oral, BID, # 30 tab(s), 11 Refill(s), Start Date: 04/03/24 11:56:00 AM CDT, Pharmacy: [facility], 173, cm, 03/31/24 10:46:00 CDT, Height/Length Measured, 88.2, kg, 03/31/24 10:51:00 CDT, Weight Dosing Start Date: 04/03/24 Stop Date: 04/19/24 Status: Completed metFORMIN 500 mg oral tablet 0.5 tab(s), Oral, BID, # 30 tab(s), 11 Refill(s), Start Date: 04/19/24 10:19:00 AM CDT, [id number], 173, cm, 03/31/24 10:46:00 CDT, Height/Length Measured, 88.2, kg, 03/31/2410:51:00 CDT, Weight Dosing Start Date: 04/19/24 Stop Date: 06/21/24 Status: Completed MiraLax oral powder for reconstitution 17 gm, Oral, Daily, Dissolve in water before taking, # 255 gm, 0 Refill(s), Start Date: 05/21/18 10:05:00 AM CDT, [facility]: [facility] [id number] Start Date: 05/21/18 Stop Date: 03/31/24 Status: Completed MS Contin 15 mg oral tablet, extended release 2 tab(s), Oral, q12hr, # 28 tab(s), 0 Refill(s), Start Date: 05/21/18 10:04:00 AM CDT, Pharmacy: [facility] [id number] Start Date: 05/21/18 Stop Date: 09/09/18 Status: Completed MS Contin 30 mg oral tablet, extended release 1 tab(s), Oral, q12hr interval, 0 Refill(s), Start Date: 09/12/18 9:49:00 AM CDT Start Date: 09/12/18 Stop Date: 06/16/19 Status: Completed Multi-Day Plus Minerals oral tablet 1 tab(s), Oral, Daily, # 30 tab(s), 0 Refill(s), Start Date: 09/30/22 3:49:00 PM COMMERCIAL COORDINATOR Start Date: 09/30/22 Stop Date: 06/21/24 Status: Completed oxycodone-acetaminophen 10 mg-325 mg oral tablet 0 Refill(s), Start Date: 11/18/22 1:27:00 PM COMMERCIAL COORDINATOR Start Date: 11/18/22 Stop Date: 04/09/23 Status: [...] Start Date: 05/17/18 4:24:00 PM CDT, Pharmacy: [facility] [id number] Start Date: 05/17/18 Stop Date: 09/09/18 Status: Completed Percocet 5/325 oral tablet See Instructions, PRN PRN for pain, 1 tab(s) Oral q6hr not to exceed 4000 mg acetaminophen per day,# 60 tab(s), 0 Refill(s), Start Date: 09/14/18 9:23:00 AM CDT, Pharmacy: [facility] Start Date: 09/14/18 Stop Date: 06/16/19 Status: Completed pregabalin 75 mg oral capsule 1 cap(s), Oral, BID, 0 Refill(s), Start Date: 03/31/24 10:44:00 AM CDT Start Date: 03/31/24 Status: Ordered Senokot S 50 mg-8.6 mg oral tablet 1 tab(s), Oral, BID, X 10 days, # 20 tab(s), 0 Refill(s), Start Date: 05/21/18 10:05:00 AM CDT, Pharmacy: [facility] [id number] Start Date: 05/21/18 Stop Date: 05/31/18 Status: Completed tamsulosin 0.4 mg oral capsule 1 cap(s), Oral, Daily, # 90 cap(s), 3 Refill(s), Start Date: 12/20/18 1:38:00 PM COMMERCIAL COORDINATOR, Pharmacy: [facility] Start Date: 12/20/18 Stop Date: 09/30/22 Status: Completed tamsulosin 0.4 mg oral capsule 1 cap(s), Oral, Daily, 0 Refill(s), Start Date: 09/09/18 7:57:00 AM CDT Start Date: 09/09/18 Stop Date: 12/20/18 Status: Discontinued traMADol 50 mg oral tablet 1 tab(s), Oral, q4hr interval, PRN PRN as needed for pain, # 12 tab(s), 0 Refill(s), Start Date: 03/03/23 1:54:00 PM CDT, Pharmacy: [facility], 173, cm, 11/18/22 13:25:00 COMMERCIAL COORDINATOR, Height/Length Measured, 89.5, kg, 03/03/23 12:25:00 CDT, Weight Dosing Start Date: 03/03/23 Stop Date: 03/31/24 Status: Completed vancomycin 1 g intravenous injection IV, q12hr interval, prescribed by Dr Perdue, 0 Refill(s), Start Date: 10/21/18 8:45:00 AM COMMERCIAL COORDINATOR Start Date: 10/21/18 Stop Date: 11/16/18 Status: Completed Zinc 140 mg (as elemental zinc 50 mg) oral tablet 1 tab(s), Oral, Daily, # 90 tab(s), 0 Refill(s), Start Date: 09/30/22 3:48:00 PM COMMERCIAL COORDINATOR Start Date: 09/30/22 Stop Date: 06/21/24 Status: [...] Elbow surgery from elbow to forearm 14left [id number] procedure 16left 17LT Rotator Cuff Repair 18right 19RT Tendon Repair 20right side 21RT Wrist Surgery- Frzn wrist- 2 screws Social History Social History Type Response Sex Male Patient Care team information Personnel Name: Carlos Enrique Obando MD Address: Address: [address]
--- OUTSIDE RECORDS SUMMARY | 2024-11-23 00:07 | XMS_ITS | Continuity of Care Document ---
Author Organization [facility] Address [address] [facility] [address] [place] [address] Care Team Providers Care Supervisor Pipe Finishing Name Role Phone Carlos Enrique Obando Primary Care Physician Encounter Date(s): 05/11/24 - 05/11/24 Family Medicine [facility] [address] [place] [address]- Discharge Disposition: Discharged to Home or Self [...] Start Date: 04/22/23 10:25:00 AM CDT, Pharmacy: [facility], 173, cm, 04/09/23 15:48:00 CDT, Height/Length [...] Start Date: 03/09/23 10:48:00 AM CDT, Pharmacy: [facility], 173, cm, 03/09/23 10:20:00 CDT, Height/Length Measured, 89.5, kg, 03/09/23 10:22:00 CDT, Weight Dosing Start Date: 03/09/23 Stop Date: 08/27/23 Status: Completed amLODIPine 5 mg oral tablet 1 tab(s), Oral, Daily, # 90 tab(s), 3 Refill(s), Start Date: 08/27/23 8:41:00 AM CDT, Pharmacy: [facility], 173, cm, 04/09/23 15:48:00 CDT, [...] Start Date: 03/09/23 10:49:00 AM CDT, Pharmacy: [facility], 173, cm, 03/09/23 10:20:00 CDT, Height/Length Measured, 89.5, kg, 03/09/23 10:22:00 CDT,Weight Dosing Start Date: 03/09/23 Stop Date: 04/22/23 Status: Completed baclofen 10 mg oral tablet 1 tab(s), Oral, TID, # 30 tab(s), 1 Refill(s), Start Date: 04/22/23 11:37:00 AM CDT, [facility], cm, 04/09/23 15:48:00 CDT, Height/Length Measured, 87.6, kg, 04/09/23 15:50:00 CDT, Weight Dosing Start Date: 04/22/23 Stop Date: 03/31/24 Status: Completed baclofen 10 mg oral tablet 0 Refill(s), Start Date: 11/18/22 1:27:00 PM DAIRY BAR MANAGER Start Date: 11/18/22 Stop Date: 03/09/23 Status: Discontinued baclofen 10 mg oral tablet 1 tab(s), Oral, TID, PRN PRN for pain, 0 Refill(s), Start Date: 05/15/18 11:15:00 PM CDT Start Date: 05/15/18 Stop Date: 06/16/19 Status: Completed baclofen 10 mg tablet baclofen 10 mg tablet, 1 tab(s), Oral, TID, # 30 tab(s), 2 Refill(s), Pharmacy: [facility], 173, cm, 04/09/23 15:48:00 CDT, Height/Length Measured, 87.6, kg, 04/09/23 15:50:00 CDT, Weight Dosing Start Date: 06/08/23 Stop Date: 03/31/24 Status: Completed baclofen 10 mg tablet baclofen 10 mg tablet, 1 tab(s), Oral, TID, # 30 tab(s), 2 Refill(s), Pharmacy: [facility], 173, cm, 04/09/23 15:48:00 CDT, [...] 0 Refill(s), Start Date: 11/09/18 6:34:00 PM DAIRY BAR MANAGER, Pharmacy: [facility] Start Date: 11/09/18 Stop Date: 12/16/18 Status: Completed ciprofloxacin 750 mg oral tablet 1 tab(s), Oral, q12hr, 2h away from dairy, X 14 days, # 28 tab(s), 2 Refill(s), Start Date: :21:00 PM DAIRY BAR MANAGER, Pharmacy: [facility] Start Date: 09/19/18 Stop Date: 11/09/18 [...] 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 daily 3 months 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, # 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, 0 Refill(s), 03/16/19 [...] 3 Refill(s), Start Date: 12/20/18 1:37:00 PM DAIRY BAR MANAGER, Pharmacy: [facility] Start Date: 12/20/18 Stop Date: 09/30/22 Status: Completed finasteride 5 mg oral tablet 1 tab(s), Oral, Daily, # 30 tab(s), 0 Refill(s), Start Date: 03/31/24 10:43:00 AM CDT Start Date: 03/31/24 Status: Ordered fluticasone 50 mcg/inh nasal spray 2 spray(s), Nasal, BID, X 42 days, # 16 gm, 11 Refill(s), Start Date: 04/03/24 11:55:00 AM CDT, Pharmacy: [facility], 173, cm, 03/31/24 10:46:00 CDT, [...] Start Date: 04/19/24 10:19:00 AM CDT, Pharmacy: [facility] #[id number], 173, cm, 03/31/24 10:46:00 CDT, Height/Length Measured, 88.2, kg, 03/31/24 10:51:00 CDT, Weight Dosing Start Date: 04/19/24 Stop Date: 09/05/25 Status: Ordered ibuprofen 600 mg oral tablet 1 tab(s), Oral, QID, PRN PRN for pain, with food or milk, # 30 tab(s), 0 Refill(s), Start Date: 03/03/23 1:53:00 PM CDT, Pharmacy: [facility], 173, cm, 11/18/22 13:25:00 DAIRY BAR MANAGER, Height/Length Measured, 89.5, kg, 03/03/23 12:25:00 [...] Start Date: 03/31/24 11:26:00 AM CDT, Pharmacy: [facility], 173, cm, 03/31/24 10:46:00 CDT, Height/Length Measured, 88.2, kg, 03/31/24 10:51:00 CDT, Weight Dosing Start Date: 03/31/24 Stop Date: 04/11/24 Status: Completed levoFLOXacin 500 mg oral tablet 1 tab(s), Oral, Daily, For chronic recurrent sinusitis, X 10 days, # 10 tab(s), 0 Refill(s), Start Date: 04/11/24 3:29:00 PM CDT, Pharmacy: [facility], 173, cm, 03/31/24 10:46:00 CDT, Height/Length Measured, 88.2, kg, 03/31/24 10:51:00 CDT, Weight Dosing Start Date: 04/11/24 Stop Date: 04/19/24 Status: Completed levoFLOXacin 500 mg oral tablet 1 tab(s), Oral, Daily, For chronic recurrent sinusitis, # 10 tab(s), 0 Refill(s), Start Date: 04/19/24 10:19:00 AM CDT, Pharmacy: [facility] #[id number], 173, cm, 03/31/24 10:46:00 CDT, Height/Length Measured, 88.2, kg, 03/31/24 10:51:00 CDT, Weight Dosing Start Date: 04/19/24 Stop Date: 04/29/24 Status: Ordered linezolid 600 mg oral tablet 1 tab(s), Oral, q12hr, generic please, # 28 tab(s), 0 Refill(s), Start Date: 11/16/18 11:41:00 AM DAIRY BAR MANAGER, Pharmacy: [facility] Start Date: 11/16/18 Stop Date: 12/02/18 Status: Completed Medrol 4 mg oral tablet 1 packet(s), Oral, ONETIME, as directed on package labeling, # 21 tab(s), 0 Refill(s), Start Date: 11/18/22 1:39:00 PM DAIRY BAR MANAGER, Pharmacy: [facility], 173, cm, 11/18/22 13:25:00 DAIRY BAR MANAGER, Height/Length Measured, 86.3, kg, 11/18/22 13:27:00 DAIRY BAR MANAGER, Weight Dosing Start Date: 11/18/22 Stop Date: 03/09/23 Status: Completed metFORMIN 500 mg oral tablet 0.5 tab(s), Oral, BID, # 30 tab(s), 11 Refill(s), Start Date: 04/03/24 11:56:00 AM CDT, Pharmacy: [facility], 173, cm, 03/31/24 10:46:00 CDT, Height/Length Measured, 88.2, kg, 03/31/24 10:51:00 CDT, Weight Dosing Start Date: 04/03/24 Stop Date: 04/19/24 Status: Completed metFORMIN 500 mg oral tablet 0.5 tab(s), Oral, BID, # 30 tab(s), 11 Refill(s), Start Date: 04/19/24 10:19:00 AM CDT, Pharmacy: [facility] #[id number], 173, cm, 03/31/24 10:46:00 CDT, Height/Length Measured, 88.2, kg, 03/31/2410:51:00 CDT, Weight Dosing Start Date: 04/19/24 Status: Ordered MiraLax oral powder for reconstitution 17 gm, Oral, Daily, Dissolve in water before taking, # 255 gm, 0 Refill(s), Start Date: 05/21/18 10:05:00 AM CDT, Pharmacy: [id number] Start Date: 05/21/18 Stop Date: 03/31/24 Status: Completed MS Contin 15 mg oral tablet, extended release 2 tab(s), Oral, q12hr, # 28 tab(s), 0 Refill(s), Start Date: 05/21/18 10:04:00 AM CDT, Pharmacy: [id number] Start Date: 05/21/18 Stop Date: 09/09/18 Status: Completed MS Contin 30 mg oral tablet, extended release 1 tab(s), Oral, q12hr interval, 0 Refill(s), Start Date: 09/12/18 9:49:00 AM CDT Start Date: 09/12/18 Stop Date: 06/16/19 Status: Completed Multi-Day Plus Minerals oral tablet 1 tab(s), Oral, Daily, # 30 tab(s), 0 Refill(s), Start Date: 09/30/22 3:49:00 PM DAIRY BAR MANAGER Start Date: 09/30/22 Status: Ordered oxycodone-acetaminophen 10 mg-325 mg oral tablet 0 Refill(s), Start Date: 11/18/22 1:27:00 PM DAIRY BAR MANAGER Start Date: 11/18/22 Stop Date: 04/09/23 [...] Start Date: 05/17/18 4:24:00 PM CDT, Pharmacy: [id number] Start Date: 05/17/18 Stop Date: 09/09/18 Status: Completed Percocet 5/325 oral tablet See Instructions, PRN PRN for pain, 1 tab(s) Oral q6hr not to exceed 4000 mg acetaminophen per day,# 60 tab(s), 0 Refill(s), Start Date: 09/14/18 9:23:00 AM CDT, Pharmacy: [facility] Start Date: 09/14/18 Stop Date: 06/16/19 Status: Completed pregabalin 75 mg oral capsule 1 cap(s), Oral, BID, 0 Refill(s), Start Date: 03/31/24 10:44:00 AM CDT Start Date: 03/31/24 Status: Ordered Senokot S 50 mg-8.6 mg oral tablet 1 tab(s), Oral, BID, X 10 days, # 20 tab(s), 0 Refill(s), Start Date: 05/21/18 10:05:00 AM CDT, Pharmacy: [facility] [id number] Start Date: 05/21/18 Stop Date: 05/31/18 Status: Completed tamsulosin 0.4 mg oral capsule 1 cap(s), Oral, Daily, # 90 cap(s), 3 Refill(s), Start Date: 12/20/18 1:38:00 PM DAIRY BAR MANAGER, Pharmacy: [facility] Start Date: 12/20/18 Stop Date: 09/30/22 Status: Completed tamsulosin 0.4 mg oral capsule 1 cap(s), Oral, Daily, 0 Refill(s), Start Date: 09/09/18 7:57:00 AM CDT Start Date: 09/09/18 Stop Date: 12/20/18 Status: Discontinued traMADol 50 mg oral tablet 1 tab(s), Oral, q4hr interval, PRN PRN as needed for pain, # 12 tab(s), 0 Refill(s), Start Date: 03/03/23 1:54:00 PM CDT, Pharmacy: [facility], 173, cm, 11/18/22 13:25:00 DAIRY BAR MANAGER, Height/Length Measured, 89.5, kg, 03/03/23 12:25:00 CDT, Weight Dosing Start Date: 03/03/23 Stop Date: 03/31/24 Status: Completed vancomycin 1 g intravenous injection IV, q12hr interval, prescribed by Dr Perdue, 0 Refill(s), Start Date: 10/21/18 8:45:00 AM DAIRY BAR MANAGER Start Date: 10/21/18 Stop Date: 11/16/18 Status: Completed Zinc 140 mg (as elemental zinc 50 mg) oral tablet 1 tab(s), Oral, Daily, # 90 tab(s), 0 Refill(s), Start Date: 09/30/22 3:48:00 PM DAIRY BAR MANAGER Start Date: 09/30/22 Status: Ordered Problem [...] Elbow surgery from elbow to forearm 13left [id number] procedure 15left 16LT Rotator Cuff Repair 17right 18RT Tendon Repair 19right side 20RT Wrist Surgery- Frzn wrist- 2 screws Social History Social History Type Response Sex Male Patient Care team information Personnel Name: Carlos Enrique Obando MD Address: Address: [address] [place] [address]
--- OUTSIDE RECORDS SUMMARY | 2024-11-23 00:07 | XMS_ITS | Summary of Care ---
Author Organization Internal Medicine [facility] Address [address] [place] [address] Care Team Providers Care Mass Spectroscopist Name Role Phone Lucretia Carvalho Primary Care Physician Encounter Date(s): 03/09/23 - 03/09/23 [facility] [address] [place] [address]- Encounter Diagnosis Bilateral shoulder pain(Discharge Diagnosis) - 03/09/23 History of BPH(Discharge Diagnosis) - 03/09/23 Establishing care with new doctor, encounter for(Discharge Diagnosis) - 03/09/23 ULLOA (nonalcoholic steatohepatitis)(Discharge Diagnosis) - 03/09/23 History of left hip replacement(Discharge Diagnosis) - 03/09/23 Prediabetes(Discharge Diagnosis) - 03/09/23 PTSD (post-traumatic stress disorder)(Discharge Diagnosis) - 03/09/23 Chronic pain syndrome(Discharge Diagnosis) - 03/09/23 Discharge Disposition: 01 Discharged to Home or Self Care Attending Physician: Lucretia Carvalho MD Referring Physician: Lucretia Carvalho MD Vital Signs Most recent to oldest [Reference Range]: 1 2 Temperature Temporal Artery [36.3-37.8 DegC] 36.6 DegC (03/09/23 10:20 AM) Peripheral Pulse Rate [60-100 bpm] 70 bp m (03/09/23 10:20 AM) Respiratory Rate [14-20 br/min] 16 br/mi n (03/09/23 10:20 AM) Blood Pressure [90-120/60-80 mmHg] 134/8 4mmHg *HI* (03/09/23 10:24 AM) 154/80mmHg *HI* (03/09/23 10:20 AM) SpO2 [95 %] 96 % (03/09/23 10:20 AM) Mean Arterial Pressure, Cuff [70-110 mmH g] 101 mmHg (03/09/23 10:24 AM) 105 mmHg (03/09/23 10:20 AM) Height/Length Measured 173 cm (03/09/23 10:20 AM) Weight Dosing 89.50 kg 1 (03/09/23 10:22 AM) Weight Measured 89.5 kg (03/09/23 10:20 AM) BSA Measured 2.03 m2 (03/09/23 10:20 AM) Body Mass Index Measured 29.9 kg/m2 (03/09/23 10:20 AM) 1Result Comment: This result was because the dosing weight was either not entered or it is >30 days old. This result is based off: Weight Measured March 09, 2023 10:20:00 CDT by Buddy Chavez RN Problem List Condition Confirmation Course Effective Dates Status Health St atus Informant Chronic pain syndrome Confirmed Active Gait difficulty Confirmed Active History of BPH Confirmed Active History of left hip replacement Confirmed Active ULLOA (nonalcoholic steatohepatitis) Confirmed Active [...] Refill(s), Start Date: 03/09/23 10:50:00 CDT, Pharmacy: [facility], 173, cm, 03/09/23 10:20:00 CDT, Height/Length [...] Refill(s), Start Date: 03/09/23 10:48:00 CDT, Pharmacy: [facility], 173, cm, 03/09/23 10:20:00 CDT, Height/Length [...] Refill(s), Start Date: 03/09/23 10:49:00 CDT, Pharmacy: [facility], 173, cm, 03/09/23 10:20:00 CDT, Height/Length Measured, 89.5, kg, 03/09/23 10:22:00 CDT, Weight Dosing Start Date: 03/09/23 Status: Ordered baclofen 10 mg oral tablet 0 Refill(s), Start Date: 11/18/22 13:27:00 TUB ATTENDANT Start Date: 11/18/22 Stop Date: 03/09/23 Status: [...] tab(s), 0 Refill(s), Start Date: 11/09/18 18:34:00 TUB ATTENDANT, Pharmacy: [facility] Start Date: 11/09/18 Stop Date: 12/16/18 Status: Completed ciprofloxacin 750 mg oral tablet 1 tab(s), Oral, q12hr, 2h away from dairy, X 14 days, # 28 tab(s), 2 Refill(s), Start Date: 09/19/18 14:21:00 TUB ATTENDANT, Pharmacy: [facility] Start Date: 09/19/18 Stop Date: 11/09/18 [...] 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 daily 3 months 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 inch See Instructions, Diagnosis Code: ULCER Length of Need:3 MONTHS Right lateral 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 drainage change every other day.gave 6 pieces from our stock please replace, # 1 EA, 0 Refill(s), :48:00 CDT, Supply Start Date: 06/16/19 Status: Ordered [...] tab(s), 3 Refill(s), Start Date: 12/20/18 13:37:00 TUB ATTENDANT, Pharmacy: [facility] Start Date: 12/20/18 Stop Date: 09/30/22 Status: Completed ibuprofen 600 mg oral tablet 1 tab(s), Oral, QID, PRN PRN for pain, with food or milk, # 30 tab(s), 0 Refill(s), Start Date: 03/03/23 13:53:00 CDT, Pharmacy: [facility], 173, cm, 11/18/22 13:25:00 TUB ATTENDANT, Height/Length Measured, 89.5, kg, 03/03/23 12:25:00 CDT, Weight Dosing Start Date: 03/03/23 Status: Ordered ibuprofen 800 mg oral tablet 1 tab(s), [...] tab(s), 0 Refill(s), Start Date: 11/16/18 11:41:00 TUB ATTENDANT,Pharmacy: [facility] Start Date: 11/16/18 Stop Date: 12/02/18 Status: Completed Medrol 4 mg oral tablet 1 packet(s), Oral, ONETIME, as directed on package labeling, # 21 tab(s), 0 Refill(s), Start Date: 11/18/22 13:39:00 TUB ATTENDANT, Pharmacy: [facility], 173, cm, 11/18/22 13:25:00 TUB ATTENDANT, Height/Length Measured, 86.3, kg, 11/18/22 13:27:00 TUB ATTENDANT, Weight Dosing Start Date: 11/18/22 Stop Date: 03/09/23 Status: Completed MiraLax oral powder for reconstitution 17 gm, Oral, Daily, Dissolve in water before taking, # 255 gm, 0 Refill(s), Start Date: 05/21/18 10:05:00 CDT, Pharmacy: [facility] [id number] Start Date: 05/21/18 Status: Ordered MS Contin 15 mg oral tablet, extended release 2 tab(s), Oral, q12hr, # 28 tab(s), 0 Refill(s), Start Date: 05/21/18 10:04:00 CDT, Pharmacy: [facility] [id number] Start Date: 05/21/18 Stop Date: 09/09/18 Status: Completed MS Contin 30 mg oral tablet, extended release 1 tab(s), Oral, q12hr interval, 0 Refill(s), Start Date: 09/12/18 9:49:00 CDT Start Date: 09/12/18 Stop Date: 06/16/19 Status: Completed Multi-Day Plus Minerals oral tablet 1 tab(s), Oral, Daily, # 30 tab(s), 0 Refill(s), Start Date: 09/30/22 15:49:00 TUB ATTENDANT Start Date: 09/30/22 Status: Ordered oxycodone-acetaminophen 10 mg-325 mg oral tablet 0 Refill(s), Start Date: 11/18/22 13:27:00 TUB ATTENDANT Start Date: 11/18/22 Status: Ordered oxyCODONE-acetaminophen 10 mg-325 mg oral tablet 1 [...] 0Refill(s), Start Date: 05/17/18 16:24:00 CDT, Pharmacy: [facility] [id number] Start Date: 05/17/18 Stop Date: 09/09/18 Status: Completed Percocet 5/325 oral tablet See Instructions, PRN PRN for pain, 1 tab(s) Oral q6hr not to exceed 4000 mg acetaminophen per day,# 60 tab(s), 0 Refill(s), Start Date: 09/14/18 9:23:00 CDT, Pharmacy: [facility] Start Date: 09/14/18 Stop Date: 06/16/19 Status: Completed Senokot S 50 mg-8.6 mg oral tablet 1 tab(s), Oral, BID, X 10 days, # 20 tab(s), 0 Refill(s), Start Date: 05/21/18 10:05:00 CDT, Pharmacy: [facility] [id number] Start Date: 05/21/18 Stop Date: 05/31/18 Status: Completed tamsulosin 0.4 mg oral capsule 1 cap(s), Oral, Daily, # 90 cap(s), 3 Refill(s), Start Date: 12/20/18 13:38:00 TUB ATTENDANT, Pharmacy: [facility] Start Date: 12/20/18 Stop Date: 09/30/22 Status: Completed tamsulosin 0.4 mg oral capsule 1 cap(s), Oral, Daily, 0 Refill(s), Start Date: 09/09/18 7:57:00 CDT Start Date: 09/09/18 Stop Date: 12/20/18 Status: Discontinued traMADol 50 mg oral tablet 1 tab(s), Oral, q4hr interval, PRN PRN as needed for pain, # 12 tab(s), 0 Refill(s), Start Date: 03/03/23 13:54:00 CDT, Pharmacy: [facility], 173, cm, 11/18/22 13:25:00 TUB ATTENDANT, Height/Length Measured, 89.5, kg, 03/03/23 12:25:00 CDT, Weight Dosing Start Date: 03/03/23 Status: Ordered vancomycin 1 g intravenous injection IV, q12hr interval, prescribed by Dr Perdue, 0 Refill(s), Start Date: 10/21/18 8:45:00 TUB ATTENDANT Start Date: 10/21/18 Stop Date: 11/16/18 Status: Completed Zinc 140 mg (as elemental zinc 50 mg) oral tablet 1 tab(s), Oral, Daily, # 90 tab(s), 0 Refill(s), Start Date: 09/30/22 15:48:00 TUB ATTENDANT Start Date: 09/30/22 Status: Ordered Results Most recent to oldest [Reference Range]: 1 2 Weight Measured 89.5 kg (03/09/23 10:20 AM) Height/Length Measured 173 cm (03/09/23 10:20 AM) Body Mass Index Measured 29.9 kg/m2 (03/09/23 10:20 AM) Systolic Blood Pressure [90-120 mmHg] 13 4 mmHg *HI* (03/09/23 10:24 AM) 154 mmHg *HI* (03/09/23 10:20 AM) Diastolic Blood Pressure [60-80 mmHg] 84 mmHg *HI* (03/09/23 10:24 AM) 80 mmHg (03/09/23 10:20 AM) Respiratory Rate [14-20 br/min] 16 br/mi n (03/09/23 10:20 AM) Immunizations Given and Recorded Vaccine Date Status [...]
--- OUTSIDE RECORDS SUMMARY | 2024-11-23 00:07 | XMS_ITS | Summary of Care ---
Author Organization [facility] Address [address] [facility] [address] [place] [address] Care Team Providers Care Civil Preparedness Officer Name Role Phone Lucretia Carvalho Primary Care Physician Encounter Date(s): 10/12/23 - 10/12/23 [facility] [address] [place] [address]- us Discharge Disposition: 01 Discharged to Home or Self Care Attending Physician: Lucretia Carvalho MD Referring Physician: Lucretia Carvalho MD Problem List Condition Confirmation Course Effective Dates [...] Refill(s), Start Date: 03/09/23 10:50:00 CDT, Pharmacy: [facility], 173, cm, 03/09/23 10:20:00 CDT, Height/Length Measured, 89.5, kg, 03/09/23 10:22:00 CDT, Weight Dosing Start Date: 03/09/23 Stop Date: 04/22/23 Status: Completed amitriptyline 75 mg oral tablet 1 tab(s), Oral, HS, # 90 tab(s), 2 Refill(s), Start Date: 04/22/23 10:25:00 CDT, Pharmacy: [facility], 173, cm, 04/09/23 15:48:00 CDT, Height/Length Measured, 87.6, kg, 04/09/23 15:50:00 CDT, Weight Dosing Start Date: 04/22/23 Status: Ordered amitriptyline 75 mg oral tablet [...] Refill(s), Start Date: 03/09/23 10:48:00 CDT, Pharmacy: [facility], 173, cm, 03/09/23 10:20:00 CDT, Height/Length Measured, 89.5, kg, 03/09/23 10:22:00 CDT,Weight Dosing Start Date: 03/09/23 Stop Date: 08/27/23 Status: Completed amLODIPine 5 mg oral tablet 1 tab(s), Oral, Daily, # 90 tab(s), 3 Refill(s), Start Date: 08/27/23 8:41:00 CDT, [facility], cm, 04/09/23 15:48:00 CDT, Height/Length Measured, 87.6, kg, 04/09/23 15:50:00 CDT, Weight Dosing Start Date: 08/27/23 Status: Ordered aspirin 81 mg oral delayed release tablet 1 tab(s), Oral, Daily, # 30 tab(s), 0 Refill(s), Start Date: 03/09/23 10:18:00 CDT Start Date: 03/09/23 Status: Ordered baclofen 10 mg oral tablet 1 tab(s), Oral, TID, # 30 tab(s), 0 Refill(s), Start Date: 03/09/23 10:49:00 CDT, Pharmacy: [facility], 173, cm, 03/09/23 10:20:00 CDT, Height/Length Measured, 89.5, kg, 03/09/23 10:22:00 CDT, Weight Dosing Start Date: 03/09/23 Stop Date: 04/22/23 Status: Completed baclofen 10 mg oral tablet 1 tab(s), Oral, TID, # 30 tab(s), 1 Refill(s), Start Date: 04/22/23 11:37:00 CDT, Pharmacy: [facility], 173, cm, 04/09/23 15:48:00 CDT, Height/Length Measured, 87.6, kg, 04/09/23 15:50:00 CDT, Weight Dosing Start Date: 04/22/23 Status: Ordered baclofen 10 mg oral tablet 0 Refill(s), Start Date: 11/18/22 13:27:00 COMMUNITY CHEST OFFICER Start Date: 11/18/22 Stop Date: 03/09/23 Status: Discontinued baclofen 10 mg oral tablet 1 tab(s), Oral, TID, PRN PRN for pain, 0 Refill(s), Start Date: 05/15/18 23:15:00 CDT Start Date: 05/15/18 Stop Date: 06/16/19 Status: Completed baclofen 10 mg tablet baclofen 10 mg tablet, 1 tab(s), Oral, TID, # 30 tab(s), 2 Refill(s), Pharmacy: [facility], 173, cm, 04/09/23 15:48:00 CDT, Height/Length Measured, 87.6, kg, 04/09/23 15:50:00 CDT, Weight Dosing Start Date: 06/08/23 Status: Ordered baclofen 10 mg tablet baclofen 10 mg tablet, 1 tab(s), Oral, TID, # 30 tab(s), 2 Refill(s), Pharmacy: [facility], 173, cm, 04/09/23 15:48:00 CDT, Height/Length Measured, 87.6, kg, 04/09/23 15:50:00 CDT, Weight Dosing Start Date: 06/18/23 Status: Ordered cephalexin 500 mg oral capsule 1 cap(s), Oral, QID, 0 Refill(s), Start Date: 09/09/18 7:56:00 CDT Start Date: 09/09/18 Stop Date: 09/12/18 Status: Discontinued ciprofloxacin 750 mg oral tablet 1 tab(s), Oral, q12hr, 2h away from dairy, # 20 tab(s), 0 Refill(s), Start Date: 11/09/18 18:34:00 COMMUNITY CHEST OFFICER, Pharmacy: [facility] Start Date: 11/09/18 Stop Date: 12/16/18 Status: Completed ciprofloxacin 750 mg oral tablet 1 tab(s), Oral, q12hr, 2h away from dairy, X 14 days, # 28 tab(s), 2 Refill(s), Start Date: 09/19/18 14:21:00 COMMUNITY CHEST OFFICER, Pharmacy: [facility] Start Date: 09/19/18 Stop Date: 11/09/18 [...] 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 daily 3 months 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, # 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, 0 Refill(s), 03/16/19 18:45:00 [...] tab(s), 3 Refill(s), Start Date: 12/20/18 13:37:00 COMMUNITY CHEST OFFICER, Pharmacy: [facility] Start Date: 12/20/18 Stop Date: 09/30/22 Status: Completed ibuprofen 600 mg oral tablet 1 tab(s), Oral, QID, PRN PRN for pain, with food or milk, # 30 tab(s), 0 Refill(s), Start Date: 03/03/23 13:53:00 CDT, Pharmacy: [facility], 173, cm, 11/18/22 13:25:00 COMMUNITY CHEST OFFICER, Height/Length Measured, 89.5, kg, 03/03/23 12:25:00 CDT, [...] tab(s), 0 Refill(s), Start Date: 11/16/18 11:41:00 COMMUNITY CHEST OFFICER,Pharmacy: [facility] Start Date: 11/16/18 Stop Date: 12/02/18 Status: Completed Medrol 4 mg oral tablet 1 packet(s), Oral, ONETIME, as directed on package labeling, # 21 tab(s), 0 Refill(s), Start Date: 11/18/22 13:39:00 COMMUNITY CHEST OFFICER, Pharmacy: [facility], 173, cm, 11/18/22 13:25:00 COMMUNITY CHEST OFFICER, Height/Length Measured, 86.3, kg, 11/18/22 13:27:00 COMMUNITY CHEST OFFICER, Weight Dosing Start Date: 11/18/22 Stop Date: 03/09/23 Status: Completed MiraLax oral powder for reconstitution 17 gm, Oral, Daily, Dissolve in water before taking, # 255 gm, 0 Refill(s), Start Date: 05/21/18 10:05:00 CDT, [id number] Start Date: 05/21/18 Status: Ordered MS Contin 15 mg oral tablet, extended release 2 tab(s), Oral, q12hr, # 28 tab(s), 0 Refill(s), Start Date: 05/21/18 10:04:00 CDT, Pharmacy: [id number] Start Date: 05/21/18 Stop Date: 09/09/18 Status: Completed MS Contin 30 mg oral tablet, extended release 1 tab(s), Oral, q12hr interval, 0 Refill(s), Start Date: 09/12/18 9:49:00 CDT Start Date: 09/12/18 Stop Date: 06/16/19 Status: Completed Multi-Day Plus Minerals oral tablet 1 tab(s), Oral, Daily, # 30 tab(s), 0 Refill(s), Start Date: 09/30/22 15:49:00 COMMUNITY CHEST OFFICER Start Date: 09/30/22 Status: Ordered oxycodone-acetaminophen 10 mg-325 mg oral tablet 0 Refill(s), Start Date: 11/18/22 13:27:00 COMMUNITY CHEST OFFICER Start Date: 11/18/22 Stop Date: 04/09/23 Status: [...] 0Refill(s), Start Date: 05/17/18 16:24:00 CDT, Pharmacy: [facility] [id number] Start Date: 05/17/18 Stop Date: 09/09/18 Status: Completed Percocet 5/325 oral tablet See Instructions, PRN PRN for pain, 1 tab(s) Oral q6hr not to exceed 4000 mg acetaminophen per day,# 60 tab(s), 0 Refill(s), Start Date: 09/14/18 9:23:00 CDT, Pharmacy: [facility] Start Date: 09/14/18 Stop Date: 06/16/19 Status: Completed Senokot S 50 mg-8.6 mg oral tablet 1 tab(s), Oral, BID, X 10 days, # 20 tab(s), 0 Refill(s), Start Date: 05/21/18 10:05:00 CDT, Pharmacy: [facility] [id number] Start Date: 05/21/18 Stop Date: 05/31/18 Status: Completed tamsulosin 0.4 mg oral capsule 1 cap(s), Oral, Daily, # 90 cap(s), 3 Refill(s), Start Date: 12/20/18 13:38:00 COMMUNITY CHEST OFFICER, Pharmacy: [facility] Start Date: 12/20/18 Stop Date: 09/30/22 Status: Completed tamsulosin 0.4 mg oral capsule 1 cap(s), Oral, Daily, 0 Refill(s), Start Date: 09/09/18 7:57:00 CDT Start Date: 09/09/18 Stop Date: 12/20/18 Status: Discontinued traMADol 50 mg oral tablet 1 tab(s), Oral, q4hr interval, PRN PRN as needed for pain, # 12 tab(s), 0 Refill(s), Start Date: 03/03/23 13:54:00 CDT, Pharmacy: [facility], 173, cm, 11/18/22 13:25:00 COMMUNITY CHEST OFFICER, Height/Length Measured, 89.5, kg, 03/03/23 12:25:00 CDT, Weight Dosing Start Date: 03/03/23 Status: Ordered vancomycin 1 g intravenous injection IV, q12hr interval, prescribed by Dr Perdue, 0 Refill(s), Start Date: 10/21/18 8:45:00 COMMUNITY CHEST OFFICER Start Date: 10/21/18 Stop Date: 11/16/18 Status: Completed Zinc 140 mg (as elemental zinc 50 mg) oral tablet 1 tab(s), Oral, Daily, # 90 tab(s), 0 Refill(s), Start Date: 09/30/22 15:48:00 COMMUNITY CHEST OFFICER Start Date: 09/30/22 Status: Ordered Immunizations Given and Recorded Vaccine Date Status Refusal Reason influenza virus vaccine, inactivated 08/23/20 Chin rded influenza virus vaccine, inactivated 09/15/18 Give n influenza virus vaccine, inactivated 08/09/17 Chin rded tetanus/diphth/pertuss (Tdap) adult/adol 04/16/17 Recorded Procedures Procedure Date Related Diagnosis Body Site [...]
--- OUTSIDE RECORDS SUMMARY | 2024-11-23 00:07 | XMS_ITS | Continuity of Care Document ---
Author Organization [facility] Address [address] [facility] [address] [place] [address] Care Team Providers Care Sba Underwriter Name Role Phone Carlos Enrique Obando Primary Care Physician Encounter Date(s): 08/02/24 - 08/02/[facility] [address] [place] [address]- Discharge Disposition: Discharged to Home or Self [...] Start Date: 04/22/23 10:25:00 AM CDT, Pharmacy: [facility], 173, cm, 04/09/23 15:48:00 CDT, Height/Length [...] Start Date: 03/09/23 10:48:00 AM CDT, Pharmacy: [facility], 173, cm, 03/09/23 10:20:00 CDT, Height/Length Measured, 89.5, kg, 03/09/23 10:22:00 CDT, Weight Dosing Start Date: 03/09/23 Stop Date: 08/27/23 Status: Completed amLODIPine 5 mg oral tablet 1 tab(s), Oral, Daily, # 90 tab(s), 3 Refill(s), Start Date: 08/27/23 8:41:00 AM CDT, Pharmacy: [facility], 173, cm, 04/09/23 15:48:00 CDT, Height/Length [...] Start Date: 07/26/24 3:47:00 PM CDT, [facility]: [id number], 173, cm, 07/26/24 15:14:00 CDT, Height/Length Measured, [...] Start Date: 07/07/24 11:58:00 AM CDT, [facility]acy: [id number], 173, cm, 07/07/24 9:24:00 CDT, Height/Length Measured, 88.2, kg, 07/07/24 9:25:00 CDT, Weight Dosing Start Date: 07/07/24 Status: Ordered baclofen 10 mg oral tablet 1 tab(s), Oral, TID, # 30 tab(s), 0 Refill(s), Start Date: 03/09/23 10:49:00 AM CDT, [facility], cm, 03/09/23 10:20:00 CDT, Height/Length [...] 0 Refill(s), Start Date: 11/18/22 1:27:00 PM INTERIOR WIRER Start Date: 11/18/22 Stop Date: 03/09/23 Status: Discontinued baclofen 10 mg oral tablet 1 tab(s), Oral, TID, PRN PRN for pain, 0 Refill(s), Start Date: 05/15/18 11:15:00 PM CDT Start Date: 05/15/18 Stop Date: 06/16/19 Status: Completed baclofen 10 mg tablet baclofen 10 mg tablet, 1 tab(s), Oral, TID, # 30 tab(s), 2 Refill(s), Pharmacy: [facility], 173, cm, 04/09/23 15:48:00 CDT, Height/Length Measured, 87.6, kg, 04/09/23 15:50:00 CDT, Weight Dosing Start Date: 06/08/23 Stop Date: 03/31/24 Status: Completed baclofen 10 mg tablet baclofen 10 mg tablet, 1 tab(s), Oral, TID, # 30 tab(s), 2 Refill(s), Pharmacy: [facility], 173, cm, 04/09/23 15:48:00 CDT, Height/Length Measured, 87.6, kg, 04/09/23 15:50:00 CDT, Weight Dosing Start Date: 06/18/23 Stop Date: 03/31/24 Status: Completed carisoprodol 250 mg oral tablet 1 tab(s), Oral, BID, # 60 tab(s), 5 Refill(s), Start Date: 07/26/24 3:47:00 PM CDT, [id number], 173, cm, 07/26/24 15:14:00 CDT, Height/Length Measured, [...] 0 Refill(s), Start Date: 11/09/18 6:34:00 PM INTERIOR WIRER, Pharmacy: [facility] Start Date: 11/09/18 Stop Date: 12/16/18 Status: Completed ciprofloxacin 750 mg oral tablet 1 tab(s), Oral, q12hr, 2h away from dairy, X 14 days, # 28 tab(s), 2 Refill(s), Start Date: :21:00 PM INTERIOR WIRER, Pharmacy: [facility] Start Date: 09/19/18 Stop Date: 11/09/18 [...] 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 daily 3 months 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, Pharmacy: [facility] Start Date: 12/20/18 Stop Date: 09/30/22 Status: Completed finasteride 5 mg oral tablet 1 tab(s), Oral, Daily, # 30 tab(s), 0 Refill(s), Start Date: 03/31/24 10:43:00 AM CDT Start Date: 03/31/24 Stop Date: 06/21/24 Status: Completed fluticasone 50 mcg/inh nasal spray 2 spray(s), Nasal, BID, X 42 days, # 16 gm, 11 Refill(s), Start Date: 04/03/24 11:55:00 AM CDT, Pharmacy: [facility], 173, cm, 03/31/24 10:46:00 CDT, Height/Length [...] Start Date: 04/19/24 10:19:00 AM CDT, [id number], 173, cm, 03/31/24 10:46:00 CDT, Height/Length Measured, 88.2, kg, 03/31/24 10:51:00 CDT, Weight Dosing Start Date: 04/19/24 Stop Date: 06/21/24 Status: Completed gabapentin 300 mg oral capsule 1 cap(s), Oral, TID, # 90 cap(s), 11 Refill(s), Start Date: 07/07/24 10:05:00 AM CDT, [facility]: [id number], 173, cm, 07/07/24 9:24:00 CDT, Height/Length Measured, 88.2, kg, 07/07/24 9:25:00 CDT, Weight Dosing Start Date: 07/07/24 Stop Date: 07/11/24 Status: Discontinued hydrocodone-acetaminophen 5 mg-325 mg oral tablet See Instructions, 1/2 to 1 tab(s) Oral TID, # 60 tab(s), 0 Refill(s), Start Date: 07/11/24 2:53:00 PM CDT, [id number], 173, cm, 07/07/24 9:24:00 CDT, Height/Length Measured,88.2, kg, 07/07/24 9:25:00 CDT, Weight Dosing Start Date: 07/11/24 Stop Date: 07/26/24 Status: Discontinued ibuprofen 600 mg oral tablet 1 tab(s), Oral, QID, PRN PRN for pain, with food or milk, # 30 tab(s), 0 Refill(s), Start Date: 03/03/23 1:53:00 PM CDT, Pharmacy: [facility], 173, cm, 11/18/22 13:25:00 INTERIOR WIRER, Height/Length Measured, 89.5, kg, 03/03/23 12:25:00 CDT, [...] Start Date: 07/07/24 10:05:00 AM CDT, [facility]acy: [facility] #[id number], 173, cm, 07/07/24 9:24:00 CDT, Height/Length Measured, [...] Start Date: 03/31/24 11:26:00 AM CDT, Pharmacy: [facility], 173, cm, 03/31/24 10:46:00 CDT, Height/Length Measured, 88.2, kg, 03/31/24 10:51:00 CDT, Weight Dosing Start Date: 03/31/24 Stop Date: 04/11/24 Status: Completed levoFLOXacin 500 mg oral tablet 1 tab(s), Oral, Daily, For chronic recurrent sinusitis, X 10 days, # 10 tab(s), 0 Refill(s), Start Date: 04/11/24 3:29:00 PM CDT, Pharmacy: [facility], 173, cm, 03/31/24 10:46:00 CDT, Height/Length Measured, 88.2, kg, 03/31/24 10:51:00 CDT, Weight Dosing Start Date: 04/11/24 Stop Date: 04/19/24 Status: Completed levoFLOXacin 500 mg oral tablet 1 tab(s), Oral, Daily, For chronic recurrent sinusitis, # 10 tab(s), 0 Refill(s), Start Date: 04/19/24 10:19:00 AM CDT, Pharmacy: [facility] #[id number], 173, cm, 03/31/24 10:46:00 CDT, Height/Length Measured, 88.2, kg, 03/31/24 10:51:00 CDT, Weight Dosing Start Date: 04/19/24 Stop Date: 06/06/24 Status: Completed linezolid 600 mg oral tablet 1 tab(s), Oral, q12hr, generic please, # 28 tab(s), 0 Refill(s), Start Date: 11/16/18 11:41:00 AM INTERIOR WIRER, Pharmacy: [facility] Start Date: 11/16/18 Stop Date: 12/02/18 Status: Completed Medrol 4 mg oral tablet 1 packet(s), Oral, ONETIME, as directed on package labeling, # 21 tab(s), 0 Refill(s), Start Date: 11/18/22 1:39:00 PM INTERIOR WIRER, Pharmacy: [facility], 173, cm, 11/18/22 13:25:00 INTERIOR WIRER, Height/Length Measured, 86.3, kg, 11/18/22 13:27:00 INTERIOR WIRER, Weight Dosing Start Date: 11/18/22 Stop Date: 03/09/23 Status: Completed metFORMIN 500 mg oral tablet 0.5 tab(s), Oral, BID, # 30 tab(s), 11 Refill(s), Start Date: 04/03/24 11:56:00 AM CDT, Pharmacy: [facility], 173, cm, 03/31/24 10:46:00 CDT, Height/Length Measured, 88.2, kg, 03/31/24 10:51:00 CDT, Weight Dosing Start Date: 04/03/24 Stop Date: 04/19/24 Status: Completed metFORMIN 500 mg oral tablet 0.5 tab(s), Oral, BID, # 30 tab(s), 11 Refill(s), Start Date: 04/19/24 10:19:00 AM CDT, Pharmacy: [facility] #[id number], 173, cm, 03/31/24 10:46:00 CDT, Height/Length Measured, 88.2, kg, 03/31/2410:51:00 CDT, Weight Dosing Start Date: 04/19/24 Stop Date: 06/21/24 Status: Completed metFORMIN 500 mg oral tablet 1 tab(s), Oral, BID, # 180 tab(s), 3 Refill(s), Start Date: 07/07/24 11:58:00 AM CDT, Pharmacy: [facility][id number], 173, cm, 07/07/24 9:24:00 CDT, Height/Length Measured, 88.2, kg, 07/07/24 9:25:00 CDT, Weight Dosing Start Date: 07/07/24 Status: Ordered MiraLax oral powder for reconstitution 17 gm, Oral, Daily, Dissolve in water before taking, # 255 gm, 0 Refill(s), Start Date: 05/21/18 10:05:00 AM CDT, Pharmacy: [facility] [id number] Start Date: 05/21/18 Stop Date: 03/31/24 Status: Completed MS Contin 15 mg oral tablet, extended release 2 tab(s), Oral, q12hr, # 28 tab(s), 0 Refill(s), Start Date: 05/21/18 10:04:00 AM CDT, Pharmacy: [facility] [id number] Start Date: 05/21/18 Stop Date: 09/09/18 Status: Completed MS Contin 30 mg oral tablet, extended release 1 tab(s), Oral, q12hr interval, 0 Refill(s), Start Date: 09/12/18 9:49:00 AM CDT Start Date: 09/12/18 Stop Date: 06/16/19 Status: Completed Multi-Day Plus Minerals oral tablet 1 tab(s), Oral, Daily, # 30 tab(s), 0 Refill(s), Start Date: 09/30/22 3:49:00 PM INTERIOR WIRER Start Date: 09/30/22 Stop Date: 06/21/24 Status: Completed Narcan 4 mg/0.1 mL nasal spray 1 spray(s), Nasal, ONETIME, # 2 EA, 11 Refill(s), Start Date: 07/07/24 10:15:00 AM CDT, Pharmacy: [facility] #[id number], 173, cm, 07/07/24 9:24:00 CDT, Height/Length Measured, 88.2, kg, :25:00 CDT, Weight Dosing Start Date: 07/07/24 Stop Date: 07/26/24 Status: Discontinued oxycodone-acetaminophen 10 mg-325 mg oral tablet 0 Refill(s), Start Date: 11/18/22 1:27:00 PM INTERIOR WIRER Start Date: 11/18/22 Stop Date: 04/09/23 Status: [...] Start Date: 07/07/24 10:05:00 AM CDT, Pharmacy: [facility] #[id number], 173, cm, 07/07/24 9:24:00 CDT, Height/Length Measured, [...] Start Date: 05/17/18 4:24:00 PM CDT, Pharmacy: [facility] [id number] Start Date: 05/17/18 Stop Date: 09/09/18 Status: Completed Percocet 5/325 oral tablet See Instructions, PRN PRN for pain, 1 tab(s) Oral q6hr not to exceed 4000 mg acetaminophen per day,# 60 tab(s), 0 Refill(s), Start Date: 09/14/18 9:23:00 AM CDT, Pharmacy: [facility] Start Date: 09/14/18 Stop Date: 06/16/19 Status: Completed predniSONE 10 mg oral tablet 3 tab(s), Oral, BID, For inflammation and pain, # 84 tab(s), 0 Refill(s), Start Date: 07/26/24 3:47:00 PM CDT, Pharmacy: [facility] #[id number], 173, cm, 07/26/24 15:14:00 CDT, Height/Length Measured, [...] Start Date: 05/21/18 10:05:00 AM CDT, Pharmacy: [facility] [id number] Start Date: 05/21/18 Stop Date: 05/31/18 Status: Completed tamsulosin 0.4 mg oral capsule 1 cap(s), Oral, Daily, # 90 cap(s), 3 Refill(s), Start Date: 12/20/18 1:38:00 PM INTERIOR WIRER, Pharmacy: [facility] Start Date: 12/20/18 Stop Date: 09/30/22 Status: Completed tamsulosin 0.4 mg oral capsule 1 cap(s), Oral, Daily, 0 Refill(s), Start Date: 09/09/18 7:57:00 AM CDT Start Date: 09/09/18 Stop Date: 12/20/18 Status: Discontinued traMADol 50 mg oral tablet 1 tab(s), Oral, q4hr interval, PRN PRN as needed for pain, # 12 tab(s), 0 Refill(s), Start Date: 03/03/23 1:54:00 PM CDT, Pharmacy: [facility], 173, cm, 11/18/22 13:25:00 INTERIOR WIRER, Height/Length Measured, 89.5, kg, 03/03/23 12:25:00 CDT, Weight Dosing Start Date: 03/03/23 Stop Date: 03/31/24 Status: Completed vancomycin 1 g intravenous injection IV, q12hr interval, prescribed by Dr Perdue, 0 Refill(s), Start Date: 10/21/18 8:45:00 AM INTERIOR WIRER Start Date: 10/21/18 Stop Date: 11/16/18 Status: Completed Zinc 140 mg (as elemental zinc 50 mg) oral tablet 1 tab(s), Oral, Daily, # 90 tab(s), 0 Refill(s), Start Date: 09/30/22 3:48:00 PM INTERIOR WIRER Start Date: 09/30/22 Stop Date: 06/21/24 Status: [...] Elbow surgery from elbow to forearm 14left [id number] procedure 16left 17LT Rotator Cuff Repair 18right 19RT Tendon Repair 20right side 21RT Wrist Surgery- Frzn wrist- 2 screws Social History Social History Type Response Sex Male Patient Care team information Personnel Name: Carlos Enrique Obando MD Address: Address: [address] [place] [address]
--- OUTSIDE RECORDS SUMMARY | 2024-11-23 00:07 | XMS_ITS | Summary of Care ---
Author Organization [facility] Address [address] [facility] [address] [place] [address] Care Team Providers Care Bowling Pin Refinisher Name Role Phone Lucretia Carvalho Primary Care Physician Encounter Date(s): 03/10/24 - 03/10/24 Family Medicine [facility] [address] [place] [address]- [place] Discharge Disposition: Discharged to Home or Self Care Problem List Condition Confirmation Course Effective Dates [...] Start Date: 04/22/23 10:25:00 AM CDT, Pharmacy: [facility], 173, cm, 04/09/23 15:48:00 CDT, [...] Start Date: 03/09/23 10:48:00 AM CDT, Pharmacy: [facility], 173, cm, 03/09/23 10:20:00 CDT, Height/Length Measured, 89.5, kg, 03/09/23 10:22:00 CDT, Weight Dosing Start Date: 03/09/23 Stop Date: 08/27/23 Status: Completed amLODIPine 5 mg oral tablet 1 tab(s), Oral, Daily, # 90 tab(s), 3 Refill(s), Start Date: 08/27/23 8:41:00 AM CDT, Pharmacy: [facility], 173, cm, 04/09/23 15:48:00 CDT, Height/Length Measured, 87.6, kg, 04/09/23 15:50:00 CDT, Weight Dosing Start Date: 08/27/23 Status: Ordered aspirin 81 mg oral delayed release tablet 1 tab(s), Oral, Daily, # 30 tab(s), 0 Refill(s), Start Date: 03/09/23 10:18:00 AM CDT Start Date: 03/09/23 Status: Ordered baclofen 10 mg oral tablet 1 tab(s), Oral, TID, # 30 tab(s), 0 Refill(s), Start Date: 03/09/23 10:49:00 AM CDT, Pharmacy: [facility], 173, cm, 03/09/23 10:20:00 CDT, Height/Length Measured, 89.5, kg, 03/09/23 10:22:00 CDT,Weight Dosing Start Date: 03/09/23 Stop Date: 04/22/23 Status: Completed baclofen 10 mg oral tablet 1 tab(s), Oral, TID, # 30 tab(s), 1 Refill(s), Start Date: 04/22/23 11:37:00 AM CDT, Pharmacy: [facility], 173, cm, 04/09/23 15:48:00 CDT, Height/Length Measured, 87.6, kg, 04/09/23 15:50:00 CDT, Weight Dosing Start Date: 04/22/23 Status: Ordered baclofen 10 mg oral tablet 0 Refill(s), Start Date: 11/18/22 1:27:00 PM SALES CENTER MANAGER Start Date: 11/18/22 Stop Date: 03/09/23 Status: Discontinued baclofen 10 mg oral tablet 1 tab(s), Oral, TID, PRN PRN for pain, 0 Refill(s), Start Date: 05/15/18 11:15:00 PM CDT Start Date: 05/15/18 Stop Date: 06/16/19 Status: Completed baclofen 10 mg tablet baclofen 10 mg tablet, 1 tab(s), Oral, TID, # 30 tab(s), 2 Refill(s), Pharmacy: [facility], 173, cm, 04/09/23 15:48:00 CDT, Height/Length Measured, 87.6, kg, 04/09/23 15:50:00 CDT, Weight Dosing Start Date: 06/08/23 Status: Ordered baclofen 10 mg tablet baclofen 10 mg tablet, 1 tab(s), Oral, TID, # 30 tab(s), 2 Refill(s), Pharmacy: [facility], 173, cm, 04/09/23 15:48:00 CDT, [...] 0 Refill(s), Start Date: 11/09/18 6:34:00 PM SALES CENTER MANAGER, Pharmacy: [facility] Start Date: 11/09/18 Stop Date: 12/16/18 Status: Completed ciprofloxacin 750 mg oral tablet 1 tab(s), Oral, q12hr, 2h away from dairy, X 14 days, # 28 tab(s), 2 Refill(s), Start Date: 182:21:00 PM SALES CENTER MANAGER, Pharmacy: [facility] Start Date: 09/19/18 Stop Date: 11/09/18 Status: Completed clindamycin 150 mg oral capsule 1 cap(s), Oral, q6hr, 0 Refill(s), Start Date: 09/09/18 7:56:00 AM CDT Start Date: 09/09/18 Stop Date: 09/12/18 Status: Discontinued diclofenac 1% topical gel 1 marianna, Topical, QID, 0 Refill(s), Start Date: 09/09/18 7:57:00 AM CDT Start Date: 09/09/18 Status: Ordered DME [...] 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 daily 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, # 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, 0 Refill(s), 03/16/19 6:45:00 [...] 3 Refill(s), Start Date: 12/20/18 1:37:00 PM SALES CENTER MANAGER, Pharmacy: [facility] Start Date: 12/20/18 Stop Date: 09/30/22 Status: Completed ibuprofen 600 mg oral tablet 1 tab(s), Oral, QID, PRN PRN for pain, with food or milk, # 30 tab(s), 0 Refill(s), Start Date: 03/03/23 1:53:00 PM CDT, Pharmacy: [facility], 173, cm, 11/18/22 13:25:00 SALES CENTER MANAGER, Height/Length Measured, 89.5, kg, 03/03/23 12:25:00 [...] 0 Refill(s), Start Date: 11/16/18 11:41:00 AM SALES CENTER MANAGER, Pharmacy: [facility] Start Date: 11/16/18 Stop Date: 12/02/18 Status: Completed Medrol 4 mg oral tablet 1 packet(s), Oral, ONETIME, as directed on package labeling, # 21 tab(s), 0 Refill(s), Start Date: 11/18/22 1:39:00 PM SALES CENTER MANAGER, Pharmacy: [facility], 173, cm, 11/18/22 13:25:00 SALES CENTER MANAGER, Height/Length Measured, 86.3, kg, 11/18/22 13:27:00 SALES CENTER MANAGER, Weight Dosing Start Date: 11/18/22 Stop Date: 03/09/23 Status: Completed MiraLax oral powder for reconstitution 17 gm, Oral, Daily, Dissolve in water before taking, # 255 gm, 0 Refill(s), Start Date: 05/21/18 10:05:00 AM CDT, Pharmacy: [facility] [id number] Start Date: 05/21/18 Status: Ordered MS Contin 15 mg oral tablet, extended release 2 tab(s), Oral, q12hr, # 28 tab(s), 0 Refill(s), Start Date: 05/21/18 10:04:00 AM CDT, Pharmacy: [facility] [id number] Start Date: 05/21/18 Stop Date: 09/09/18 Status: Completed MS Contin 30 mg oral tablet, extended release 1 tab(s), Oral, q12hr interval, 0 Refill(s), Start Date: 09/12/18 9:49:00 AM CDT Start Date: 09/12/18 Stop Date: 06/16/19 Status: Completed Multi-Day Plus Minerals oral tablet 1 tab(s), Oral, Daily, # 30 tab(s), 0 Refill(s), Start Date: 09/30/22 3:49:00 PM SALES CENTER MANAGER Start Date: 09/30/22 Status: Ordered oxycodone-acetaminophen 10 mg-325 mg oral tablet 0 Refill(s), Start Date: 11/18/22 1:27:00 PM SALES CENTER MANAGER Start Date: 11/18/22 Stop Date: 04/09/23 [...] Start Date: 05/17/18 4:24:00 PM CDT, Pharmacy: [facility] [id number] Start Date: 05/17/18 Stop Date: 09/09/18 Status: Completed Percocet 5/325 oral tablet See Instructions, PRN PRN for pain, 1 tab(s) Oral q6hr not to exceed 4000 mg acetaminophen per day,# 60 tab(s), 0 Refill(s), Start Date: 09/14/18 9:23:00 AM CDT, Pharmacy: [facility] Start Date: 09/14/18 Stop Date: 06/16/19 Status: Completed Senokot S 50 mg-8.6 mg oral tablet 1 tab(s), Oral, BID, X 10 days, # 20 tab(s), 0 Refill(s), Start Date: 05/21/18 10:05:00 AM CDT, Pharmacy: [facility] [id number] Start Date: 05/21/18 Stop Date: 05/31/18 Status: Completed tamsulosin 0.4 mg oral capsule 1 cap(s), Oral, Daily, # 90 cap(s), 3 Refill(s), Start Date: 12/20/18 1:38:00 PM SALES CENTER MANAGER, Pharmacy: [facility] Start Date: 12/20/18 Stop Date: 09/30/22 Status: Completed tamsulosin 0.4 mg oral capsule 1 cap(s), Oral, Daily, 0 Refill(s), Start Date: 09/09/18 7:57:00 AM CDT Start Date: 09/09/18 Stop Date: 12/20/18 Status: Discontinued traMADol 50 mg oral tablet 1 tab(s), Oral, q4hr interval, PRN PRN as needed for pain, # 12 tab(s), 0 Refill(s), Start Date: 03/03/23 1:54:00 PM CDT, Pharmacy: [facility], 173, cm, 11/18/22 13:25:00 SALES CENTER MANAGER, Height/Length Measured, 89.5, kg, 03/03/23 12:25:00 CDT, Weight Dosing Start Date: 03/03/23 Status: Ordered vancomycin 1 g intravenous injection IV, q12hr interval, prescribed by Dr Perdue, 0 Refill(s), Start Date: 10/21/18 8:45:00 AM SALES CENTER MANAGER Start Date: 10/21/18 Stop Date: 11/16/18 Status: Completed Zinc 140 mg (as elemental zinc 50 mg) oral tablet 1 tab(s), Oral, Daily, # 90 tab(s), 0 Refill(s), Start Date: 09/30/22 3:48:00 PM SALES CENTER MANAGER Start Date: 09/30/22 Status: Ordered Immunizations Given [...]
--- OUTSIDE RECORDS SUMMARY | 2024-11-23 00:07 | XMS_ITS | Summary of Care ---
Author Organization [facility] Address [address] [facility] [address] [place] [address] Care Team Providers Care Dye Can Operator Name Role Phone Lucretia Carvalho Primary Care Physician [phone] Encounter Date(s): 01/14/24 - 01/14/24 Family Medicine [facility] [address] [place] [address]- [place] Discharge Disposition: Discharged to [...] Refill(s), Start Date: 03/09/23 10:50:00 CDT, Pharmacy: [facility], 173, cm, 03/09/23 10:20:00 CDT, Height/Length Measured, 89.5, kg, 03/09/23 10:22:00 CDT, Weight Dosing Start Date: 03/09/23 Stop Date: 04/22/23 Status: Completed amitriptyline 75 mg oral tablet 1 tab(s), Oral, HS, # 90 tab(s), 2 Refill(s), Start Date: 04/22/23 10:25:00 CDT, Pharmacy: [facility], 173, cm, 04/09/23 15:48:00 CDT, Height/Length [...] Refill(s), Start Date: 03/09/23 10:48:00 CDT, Pharmacy: [facility], 173, cm, 03/09/23 10:20:00 CDT, Height/Length Measured, 89.5, kg, 03/09/23 10:22:00 CDT,Weight Dosing Start Date: 03/09/23 Stop Date: 08/27/23 Status: Completed amLODIPine 5 mg oral tablet 1 tab(s), Oral, Daily, # 90 tab(s), 3 Refill(s), Start Date: 08/27/23 8:41:00 CDT, [facility], [facility], cm, 04/09/23 15:48:00 [...] Refill(s), Start Date: 03/09/23 10:49:00 CDT, Pharmacy: [facility], 173, cm, 03/09/23 10:20:00 CDT, Height/Length Measured, 89.5, kg, 03/09/23 10:22:00 CDT, Weight Dosing Start Date: 03/09/23 Stop Date: 04/22/23 Status: Completed baclofen 10 mg oral tablet 1 tab(s), Oral, TID, # 30 tab(s), 1 Refill(s), Start Date: 04/22/23 11:37:00 CDT, Pharmacy: [facility], 173, cm, 04/09/23 15:48:00 CDT, Height/Length Measured, 87.6, kg, 04/09/23 15:50:00 CDT, Weight Dosing Start Date: 04/22/23 Status: Ordered baclofen 10 mg oral tablet 0 Refill(s), Start Date: 11/18/22 13:27:00 COLLOID MILL OPERATOR Start Date: 11/18/22 Stop Date: 03/09/23 Status: Discontinued baclofen 10 mg oral tablet 1 tab(s), Oral, TID, PRN PRN for pain, 0 Refill(s), Start Date: 05/15/18 23:15:00 CDT Start Date: 05/15/18 Stop Date: 06/16/19 Status: Completed baclofen 10 mg tablet baclofen 10 mg tablet, 1 tab(s), Oral, TID, # 30 tab(s), 2 Refill(s), Pharmacy: [facility], 173, cm, 04/09/23 15:48:00 CDT, Height/Length Measured, 87.6, kg, 04/09/23 15:50:00 CDT, Weight Dosing Start Date: 06/08/23 Status: Ordered baclofen 10 mg tablet baclofen 10 mg tablet, 1 tab(s), Oral, TID, # 30 tab(s), 2 Refill(s), Pharmacy: [facility], 173, cm, 04/09/23 15:48:00 CDT, Height/Length Measured, [...] tab(s), 0 Refill(s), Start Date: 11/09/18 18:34:00 COLLOID MILL OPERATOR, Pharmacy: [facility] Start Date: 11/09/18 Stop Date: 12/16/18 Status: Completed ciprofloxacin 750 mg oral tablet 1 tab(s), Oral, q12hr, 2h away from dairy, X 14 days, # 28 tab(s), 2 Refill(s), Start Date: 09/19/18 14:21:00 COLLOID MILL OPERATOR, Pharmacy: [facility] Start Date: 09/19/18 Stop Date: 11/09/18 [...] 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 daily 3 months 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 inch See Instructions, Diagnosis Code: ULCER Length of Need:3 MONTHS Right lateral 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 drainage change every other day.gave 6 pieces from our stock please replace, # 1 EA, 0 Refill(s), 199:48:00 CDT, Supply Start Date: 06/16/19 Status: Ordered [...] tab(s), 3 Refill(s), Start Date: 12/20/18 13:37:00 COLLOID MILL OPERATOR, Pharmacy: [facility] Start Date: 12/20/18 Stop Date: 09/30/22 Status: Completed ibuprofen 600 mg oral tablet 1 tab(s), Oral, QID, PRN PRN for pain, with food or milk, # 30 tab(s), 0 Refill(s), Start Date: 03/03/23 13:53:00 CDT, Pharmacy: [facility], 173, cm, 11/18/22 13:25:00 COLLOID MILL OPERATOR, Height/Length Measured, 89.5, kg, 03/03/23 12:25:00 [...] tab(s), 0 Refill(s), Start Date: 11/16/18 11:41:00 COLLOID MILL OPERATOR,Pharmacy: [facility] Start Date: 11/16/18 Stop Date: 12/02/18 Status: Completed Medrol 4 mg oral tablet 1 packet(s), Oral, ONETIME, as directed on package labeling, # 21 tab(s), 0 Refill(s), Start Date: 11/18/22 13:39:00 COLLOID MILL OPERATOR, Pharmacy: [facility], 173, cm, 11/18/22 13:25:00 COLLOID MILL OPERATOR, Height/Length Measured, 86.3, kg, 11/18/22 13:27:00 COLLOID MILL OPERATOR, Weight Dosing Start Date: 11/18/22 Stop Date: 03/09/23 Status: Completed MiraLax oral powder for reconstitution 17 gm, Oral, Daily, Dissolve in water before taking, # 255 gm, 0 Refill(s), Start Date: 05/21/18 10:05:00 CDT, Pharmacy: [facility] [id number] Start Date: 05/21/18 Status: Ordered MS Contin 15 mg oral tablet, extended release 2 tab(s), Oral, q12hr, # 28 tab(s), 0 Refill(s), Start Date: 05/21/18 10:04:00 CDT, Pharmacy: [facility] [id number] Start Date: 05/21/18 Stop Date: 09/09/18 Status: Completed MS Contin 30 mg oral tablet, extended release 1 tab(s), Oral, q12hr interval, 0 Refill(s), Start Date: 09/12/18 9:49:00 CDT Start Date: 09/12/18 Stop Date: 06/16/19 Status: Completed Multi-Day Plus Minerals oral tablet 1 tab(s), Oral, Daily, # 30 tab(s), 0 Refill(s), Start Date: 09/30/22 15:49:00 COLLOID MILL OPERATOR Start Date: 09/30/22 Status: Ordered oxycodone-acetaminophen 10 mg-325 mg oral tablet 0 Refill(s), Start Date: 11/18/22 13:27:00 COLLOID MILL OPERATOR Start Date: 11/18/22 Stop Date: 04/09/23 [...] 0Refill(s), Start Date: 05/17/18 16:24:00 CDT, Pharmacy: [facility] [id number] Start Date: 05/17/18 Stop Date: 09/09/18 Status: Completed Percocet 5/325 oral tablet See Instructions, PRN PRN for pain, 1 tab(s) Oral q6hr not to exceed 4000 mg acetaminophen per day,# 60 tab(s), 0 Refill(s), Start Date: 09/14/18 9:23:00 CDT, Pharmacy: [facility] Start Date: 09/14/18 Stop Date: 06/16/19 Status: Completed Senokot S 50 mg-8.6 mg oral tablet 1 tab(s), Oral, BID, X 10 days, # 20 tab(s), 0 Refill(s), Start Date: 05/21/18 10:05:00 CDT, Pharmacy: [facility] [id number] Start Date: 05/21/18 Stop Date: 05/31/18 Status: Completed tamsulosin 0.4 mg oral capsule 1 cap(s), Oral, Daily, # 90 cap(s), 3 Refill(s), Start Date: 12/20/18 13:38:00 COLLOID MILL OPERATOR, Pharmacy: [facility] Start Date: 12/20/18 Stop Date: 09/30/22 Status: Completed tamsulosin 0.4 mg oral capsule 1 cap(s), Oral, Daily, 0 Refill(s), Start Date: 09/09/18 7:57:00 CDT Start Date: 09/09/18 Stop Date: 12/20/18 Status: Discontinued traMADol 50 mg oral tablet 1 tab(s), Oral, q4hr interval, PRN PRN as needed for pain, # 12 tab(s), 0 Refill(s), Start Date: 03/03/23 13:54:00 CDT, Pharmacy: [facility], 173, cm, 11/18/22 13:25:00 COLLOID MILL OPERATOR, Height/Length Measured, 89.5, kg, 03/03/23 12:25:00 CDT, Weight Dosing Start Date: 03/03/23 Status: Ordered vancomycin 1 g intravenous injection IV, q12hr interval, prescribed by Dr Perdue, 0 Refill(s), Start Date: 10/21/18 8:45:00 COLLOID MILL OPERATOR Start Date: 10/21/18 Stop Date: 11/16/18 Status: Completed Zinc 140 mg (as elemental zinc 50 mg) oral tablet 1 tab(s), Oral, Daily, # 90 tab(s), 0 Refill(s), Start Date: 09/30/22 15:48:00 COLLOID MILL OPERATOR Start Date: 09/30/22 Status: Ordered Immunizations Given [...]
--- OUTSIDE RECORDS SUMMARY | 2024-11-23 00:07 | XMS_ITS | Continuity of Care Document ---
Author Organization [facility] Address [address] [facility] [address] [place] [address] Care Team Providers Care Ophthalmic Medical Assistant Name Role Phone Carlos Enrique Obando Primary Care Physician Encounter Date(s): 05/24/24 - 05/24/24 [facility] [address] [place] [address]- Discharge Disposition: Discharged to Home or Self Care Attending Physician: Garfield Florez MD Referring Physician: CarlosE nrique Obando MD Allergies, Adverse Reactions, Alerts No Known Allergies [...] Date: 03/09/23 10:48:00 AM CDT, Pharmacy: [facility], 173, cm, 03/09/23 10:20:00 CDT, [...] Start Date: 04/22/23 11:37:00 AM CDT, Pharmacy: [facility], 173, cm, 04/09/23 15:48:00 CDT, Height/Length Measured, 87.6, kg, 04/09/23 15:50:00 CDT, Weight Dosing Start Date: 04/22/23 Stop Date: 03/31/24 Status: Completed baclofen 10 mg oral tablet 0 Refill(s), Start Date: 11/18/22 1:27:00 PM CERTIFIED MEDICATION AIDE Start Date: 11/18/22 Stop Date: 03/09/23 Status: [...] 0 Refill(s), Start Date: 11/09/18 6:34:00 PM CERTIFIED MEDICATION AIDE, Pharmacy: 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, # 1 boxes, 0 Refill(s), 03/16/19 6:45:00 [...] 3 Refill(s), Start Date: 12/20/18 1:37:00 PM CERTIFIED MEDICATION AIDE, Pharmacy: [facility] Start Date: 12/20/18 Stop Date: 09/30/22 [...] Start Date: 04/19/24 10:19:00 AM CDT, Pharmacy: [facility] #[id number], 173, cm, 03/31/24 10:46:00 CDT, Height/Length Measured, 88.2, kg, 03/31/24 10:51:00 CDT, Weight Dosing Start Date: 04/19/24 Stop Date: 09/05/25 Status: Ordered ibuprofen 600 mg oral tablet 1 tab(s), Oral, QID, PRN PRN for pain, with food or milk, # 30 tab(s), 0 Refill(s), Start Date: 03/03/23 1:53:00 PM CDT, Pharmacy: [facility], 173, cm, 11/18/22 13:25:00 CERTIFIED MEDICATION AIDE, Height/Length Measured, 89.5, kg, 03/03/23 12:25:00 CDT, [...] Start Date: 03/31/24 11:26:00 AM CDT, Pharmacy: [facility], 173, cm, 03/31/24 10:46:00 CDT, Height/Length Measured, 88.2, kg, 03/31/24 10:51:00 CDT, Weight Dosing Start Date: 03/31/24 Stop Date: 04/11/24 Status: Completed levoFLOXacin 500 mg oral tablet 1 tab(s), Oral, Daily, For chronic recurrent sinusitis, X 10 days, # 10 tab(s), 0 Refill(s), Start Date: 04/11/24 3:29:00 PM CDT, Pharmacy: [facility], 173, cm, 03/31/24 10:46:00 CDT, Height/Length Measured, 88.2, kg, 03/31/24 10:51:00 CDT, Weight Dosing Start Date: 04/11/24 Stop Date: 04/19/24 Status: Completed levoFLOXacin 500 mg oral tablet 1 tab(s), Oral, Daily, For chronic recurrent sinusitis, # 10 tab(s), 0 Refill(s), Start Date: 04/19/24 10:19:00 AM CDT, Pharmacy: [facility] #[id number], 173, cm, 03/31/24 10:46:00 CDT, Height/Length Measured, 88.2, kg, 03/31/24 10:51:00 CDT, Weight Dosing Start Date: 04/19/24 Stop Date: 04/29/24 Status: Ordered linezolid 600 mg oral tablet 1 tab(s), Oral, q12hr, generic please, # 28 tab(s), 0 Refill(s), Start Date: 11/16/18 11:41:00 AM CERTIFIED MEDICATION AIDE, Pharmacy: [facility] Start Date: 11/16/18 Stop Date: 12/02/18 Status: Completed Medrol 4 mg oral tablet 1 packet(s), Oral, ONETIME, as directed on package labeling, # 21 tab(s), 0 Refill(s), Start Date: 11/18/22 1:39:00 PM CERTIFIED MEDICATION AIDE, Pharmacy: [facility], 173, cm, 11/18/22 13:25:00 CERTIFIED MEDICATION AIDE, Height/Length Measured, 86.3, kg, 11/18/22 13:27:00 CERTIFIED MEDICATION AIDE, Weight Dosing Start Date: 11/18/22 Stop Date: 03/09/23 Status: Completed metFORMIN 500 mg oral tablet 0.5 tab(s), Oral, BID, # 30 tab(s), 11 Refill(s), Start Date: 04/03/24 11:56:00 AM CDT, Pharmacy: [facility], 173, cm, 03/31/24 10:46:00 CDT, Height/Length Measured, 88.2, kg, 03/31/24 10:51:00 CDT, Weight Dosing Start Date: 04/03/24 Stop Date: 04/19/24 Status: Completed metFORMIN 500 mg oral tablet 0.5 tab(s), Oral, BID, # 30 tab(s), 11 Refill(s), Start Date: 04/19/24 10:19:00 AM CDT, Pharmacy: [facility] #[id number], 173, cm, 03/31/24 10:46:00 CDT, Height/Length Measured, 88.2, kg, 03/31/2410:51:00 CDT, Weight Dosing Start Date: 04/19/24 Status: Ordered MiraLax oral powder for reconstitution 17 gm, Oral, Daily, Dissolve in water before taking, # 255 gm, 0 Refill(s), Start Date: 05/21/18 10:05:00 AM CDT, Pharmacy: [facility] [id number] Start Date: 05/21/18 Stop Date: 03/31/24 Status: Completed MS Contin 15 mg oral tablet, extended release 2 tab(s), Oral, q12hr, # 28 tab(s), 0 Refill(s), Start Date: 05/21/18 10:04:00 AM CDT, Pharmacy: [facility] [id number] Start Date: 05/21/18 Stop Date: 09/09/18 Status: Completed MS Contin 30 mg oral tablet, extended release 1 tab(s), Oral, q12hr interval, 0 Refill(s), Start Date: 09/12/18 9:49:00 AM CDT Start Date: 09/12/18 Stop Date: 06/16/19 Status: Completed Multi-Day Plus Minerals oral tablet 1 tab(s), Oral, Daily, # 30 tab(s), 0 Refill(s), Start Date: 09/30/22 3:49:00 PM CERTIFIED MEDICATION AIDE Start Date: 09/30/22 Status: Ordered oxycodone-acetaminophen 10 mg-325 mg oral tablet 0 Refill(s), Start Date: 11/18/22 1:27:00 PM CERTIFIED MEDICATION AIDE Start Date: 11/18/22 Stop Date: 5/26/23 Status: Completed oxyCODONE-acetaminophen 10 mg-325 mg oral [...] Start Date: 05/17/18 4:24:00 PM CDT, Pharmacy: [facility] [id number] Start Date: 05/17/18 Stop Date: 09/09/18 Status: Completed Percocet 5/325 oral tablet See Instructions, PRN PRN for pain, 1 tab(s) Oral q6hr not to exceed 4000 mg acetaminophen per day,# 60 tab(s), 0 Refill(s), Start Date: 09/14/18 9:23:00 AM CDT, Pharmacy: [facility] Start Date: 09/14/18 Stop Date: 06/16/19 Status: Completed pregabalin 75 mg oral capsule 1 cap(s), Oral, BID, 0 Refill(s), Start Date: 03/31/24 10:44:00 AM CDT Start Date: 03/31/24 Status: Ordered Senokot S 50 mg-8.6 mg oral tablet 1 tab(s), Oral, BID, X 10 days, # 20 tab(s), 0 Refill(s), Start Date: 05/21/18 10:05:00 AM CDT, Pharmacy: [facility] [id number] Start Date: 05/21/18 Stop Date: 05/31/18 Status: Completed tamsulosin 0.4 mg oral capsule 1 cap(s), Oral, Daily, # 90 cap(s), 3 Refill(s), Start Date: 12/20/18 1:38:00 PM CERTIFIED MEDICATION AIDE, Pharmacy: [facility] Start Date: 12/20/18 Stop Date: 09/30/22 Status: Completed tamsulosin 0.4 mg oral capsule 1 cap(s), Oral, Daily, 0 Refill(s), Start Date: 09/09/18 7:57:00 AM CDT Start Date: 09/09/18 Stop Date: 12/20/18 Status: Discontinued traMADol 50 mg oral tablet 1 tab(s), Oral, q4hr interval, PRN PRN as needed for pain, # 12 tab(s), 0 Refill(s), Start Date: 03/03/23 1:54:00 PM CDT, Pharmacy: [facility], 173, cm, 11/18/22 13:25:00 CERTIFIED MEDICATION AIDE, Height/Length Measured, 89.5, kg, 03/03/23 12:25:00 CDT, Weight Dosing Start Date: 03/03/23 Stop Date: 03/31/24 Status: Completed vancomycin 1 g intravenous injection IV, q12hr interval, prescribed by Dr Perdue, 0 Refill(s), Start Date: 10/21/18 8:45:00 AM CERTIFIED MEDICATION AIDE Start Date: 10/21/18 Stop Date: 11/16/18 Status: Completed Zinc 140 mg (as elemental zinc 50 mg) oral tablet 1 tab(s), Oral, Daily, # 90 tab(s), 0 Refill(s), Start Date: 09/30/22 3:48:00 PM CERTIFIED MEDICATION AIDE Start Date: 09/30/22 Status: Ordered Problem List [...] surgical case 8auto-populated from documented surgical case 9Colonoscopy w/ polypectomy 12/07/18 10several for multiple polyps -has one scheduled November 2018 11ORIF left elbow 12LT Elbow surgery from elbow to forearm 13left [id number] procedure 15left 16LT Rotator Cuff Repair 17right 18RT Tendon Repair 19right side 20RT Wrist Surgery- Frzn wrist- 2 screws Results Most recent to oldest [Reference Range]: 1 Weight Measured 87.7 kg (05/24/24 3:00 PM) Height/Length Measured 173 cm (05/24/24 3:00 PM) Body Mass Index Measured 29.3 kg/m2 (05/24/24 3:00 PM) Radiology Reports * Exam Date Time Procedure Performing Provider Status 05/24/24 3:10 PM CR Lumbar Spine Comp W Bending Views Kandace Barksdale; Javi (Verified) Notes: (CR Lumbar Spine Comp W Bending Views) Reason For Exam: low back pain Report Indication: Low back pain for a couple of months. Radiculopathy in the bilateral thighs. Technique: AP, lateral, spot lateral and flexion-extension lateral views of the lumbar spine. Comparison: MRI of the lumbar spine dated 05/08/2024 Findings: Diffuse decreased bony mineralization. There is an apparent new compression fracture at the L3 vertebral body which was not present on the MRI from 05/08/2024. There is less than 50% height loss. No other compression fractures identified. There is endplate degenerative change and disc space during throughout the lumbar spine most pronounced at L5-S1. There is facet arthropathy throughoutthe lumbar spine most pronounced at L4-5 and L5-S1 levels. IMPRESSION: APPARENT NEW COMPRESSION FRACTURE INVOLVING L3 VERTEBRAL BODY. PATIENT HAS BACK PAIN ASSOCIATED WITH THIS AREA, CONSIDER REPEAT MRI TO EVALUATE FOR ANY ACTIVE EDEMA AT THIS LEVEL TO EVALUATE FOR THE POSSIBILITY OF KYPHOPLASTY TREATMENT. Final Dictated by: Mc Kovacs DO Dictated DT/TM: 05/24/2024 3:10 pm Signed by: Mc Kovacs DO Signed (Electronic Signature): 05/24/2024 3:14 pm Vital Signs Most recent to oldest [Reference Range]: 1 Height/Length Measured 173 cm (05/24/24 3:00 PM) Weight Dosing 87.70 kg 1 (05/24/24 3:02 PM) Weight Measured 87.7 kg (05/24/24 3:00 PM) BSA Measured 2.02 m2 (05/24/24 3:00 PM) Body Mass Index Measured 29.3 kg/m2 (05/24/24 3:00 PM) 1Result Comment: This result was because the dosing weight was either not entered or it is >30 days old. This result is based off: Weight Measured May 24, 2024 15:00:00 CDT by Penny Lopez CMA Social History Social History Type Response Sex Male Patient Care team information Personnel Name: Carlos Enrique Obando MD Address: Address: [address] [facility] [address] [place] [address]- [place]
--- OUTSIDE RECORDS SUMMARY | 2024-11-23 00:07 | XMS_ITS | Summary of Care ---
Author Organization [facility] Address [address] [place] [address] Care Team Providers Care Pharmacometrician Name Role Phone Froylan Nash Primary Care Physician Encounter Date(s): 12/16/22 - 12/16/22 [facility] [address] [place] [phone] Discharge Disposition: 01 Discharged to Home or Self Care Attending Physician: MERON Jackson Admitting Physician: MERON Jackson Problem List Condition Confirmation Course Effective Dates Status Health St atus Informant Chronic pain syndrome Confirmed Active Gait difficulty Confirmed Active Allergies, Adverse Reactions, Alerts No Known Medication Allergies Medications Acidophilus Probiotic Blend 1 tab, Oral, Daily, 0 Refill(s), Start Date: 09/12/18 9:46:00 CDT Start Date: 09/12/18 Status: Ordered amitriptyline 75 mg oral tablet 1 tab(s), Oral, HS, 0 Refill(s), Start Date: 05/15/18 22:18:00 CDT Start Date: 05/15/18 Status: Ordered amitriptyline 75 mg oral tablet tab(s), Oral, HS, 0 Refill(s), Start Date: 05/15/18 23:15:00 CDT Start Date: 05/15/18 Stop Date: 09/12/18 Status: Discontinued baclofen 10 mg oral tablet 0 Refill(s), Start Date: 11/18/22 13:27:00 ROLLING ATTENDANT Start Date: 11/18/22 Status: Ordered baclofen 10 mg oral tablet [...] tab(s), 0 Refill(s), Start Date: 11/09/18 18:34:00 ROLLING ATTENDANT, Pharmacy: [facility] Start Date: 11/09/18 Stop Date: 12/16/18 Status: Completed ciprofloxacin 750 mg oral tablet 1 tab(s), Oral, q12hr, 2h away from dairy, X 14 days, # 28 tab(s), 2 Refill(s), Start Date: 09/19/18 14:21:00 ROLLING ATTENDANT, Pharmacy: [facility] Start Date: 09/19/18 Stop Date: 11/09/18 [...] 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 daily 3 months 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, # 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, 0 Refill(s), 03/16/19 18:45:00 [...] tab(s), 3 Refill(s), Start Date: 12/20/18 13:37:00 ROLLING ATTENDANT, Pharmacy: [facility] Start Date: 12/20/18 Stop Date: 09/30/22 Status: Completed ibuprofen 800 mg oral tablet [...] tab(s), 0 Refill(s), Start Date: 11/16/18 11:41:00 ROLLING ATTENDANT,Pharmacy: [facility] Start Date: 11/16/18 Stop Date: 12/02/18 Status: Completed Medrol 4 mg oral tablet 1 packet(s), Oral, ONETIME, as directed on package labeling, # 21 tab(s), 0 Refill(s), Start Date: 11/18/22 13:39:00 ROLLING ATTENDANT, Pharmacy: [facility], 173, cm, 11/18/22 13:25:00 ROLLING ATTENDANT, Height/Length Measured, 86.3, kg, 11/18/22 13:27:00 ROLLING ATTENDANT, Weight Dosing Start Date: 11/18/22 Status: Ordered MiraLax oral powder for reconstitution 17 gm, Oral, Daily, Dissolve in water before taking, # 255 gm, 0 Refill(s), Start Date: 05/21/18 10:05:00 CDT, Pharmacy: [facility] [id number] Start Date: 05/21/18 Status: Ordered MS Contin 15 mg oral tablet, extended release 2 tab(s), Oral, q12hr, # 28 tab(s), 0 Refill(s), Start Date: 05/21/18 10:04:00 CDT, Pharmacy: [facility] [id number] Start Date: 05/21/18 Stop Date: 09/09/18 Status: Completed MS Contin 30 mg oral tablet, extended release 1 tab(s), Oral, q12hr interval, 0 Refill(s), Start Date: 09/12/18 9:49:00 CDT Start Date: 09/12/18 Stop Date: 06/16/19 Status: Completed Multi-Day Plus Minerals oral tablet 1 tab(s), Oral, Daily, # 30 tab(s), 0 Refill(s), Start Date: 09/30/22 15:49:00 ROLLING ATTENDANT Start Date: 09/30/22 Status: Ordered oxycodone-acetaminophen 10 mg-325 mg oral tablet 0 Refill(s), Start Date: 11/18/22 13:27:00 ROLLING ATTENDANT Start Date: 11/18/22 Status: Ordered oxyCODONE-acetaminophen [...] 0Refill(s), Start Date: 05/17/18 16:24:00 CDT, Pharmacy: [facility] [id number] Start Date: 05/17/18 Stop Date: 09/09/18 Status: Completed Percocet 5/325 oral tablet See Instructions, PRN PRN for pain, 1 tab(s) Oral q6hr not to exceed 4000 mg acetaminophen per day,# 60 tab(s), 0 Refill(s), Start Date: 09/14/18 9:23:00 CDT, Pharmacy: [facility] Start Date: 09/14/18 Stop Date: 06/16/19 Status: Completed Senokot S 50 mg-8.6 mg oral tablet 1 tab(s), Oral, BID, X 10 days, # 20 tab(s), 0 Refill(s), Start Date: 05/21/18 10:05:00 CDT, Pharmacy: [email or web address] [id number] Start Date: 05/21/18 Stop Date: 05/31/18 Status: Completed tamsulosin 0.4 mg oral capsule 1 cap(s), Oral, Daily, # 90 cap(s), 3 Refill(s), Start Date: 12/20/18 13:38:00 ROLLING ATTENDANT, Pharmacy: [facility] Start Date: 12/20/18 Stop Date: 09/30/22 Status: Completed tamsulosin 0.4 mg oral capsule 1 cap(s), Oral, Daily, 0 Refill(s), Start Date: 09/09/18 7:57:00 CDT Start Date: 09/09/18 Stop Date: 12/20/18 Status: Discontinued vancomycin 1 g intravenous injection IV, q12hr interval, prescribed by Dr Perdue, 0 Refill(s), Start Date: 10/21/18 8:45:00 ROLLING ATTENDANT Start Date: 10/21/18 Stop Date: 11/16/18 Status: Completed Zinc 140 mg (as elemental zinc 50 mg) oral tablet 1 tab(s), Oral, Daily, # 90 tab(s), 0 Refill(s), Start Date: 09/30/22 15:48:00 ROLLING ATTENDANT Start Date: 09/30/22 Status: Ordered Immunizations Given [...]
--- OUTSIDE RECORDS SUMMARY | 2024-11-23 00:07 | XMS_ITS | Continuity of Care Document ---
Author Organization [facility] Address [address] [place] [address] Care Team Providers Care Storm Chaser Name Role Phone Carlos Enrique Obando Primary Care Physician Encounter Date(s): 09/13/24 - 09/13/24 [facility] [address] [place], [place] [address] Encounter Diagnosis Atypical chest pain(Discharge Diagnosis) - 09/13/24 Discharge Disposition: 01 Discharged to Home or Self Care Attending Physician: Renny Colindres DO Admitting Physician: Renny Colindres DO Allergies, Adverse Reactions, Alerts Substance Criticality Severity [...] Start Date: 04/22/23 10:25:00 AM CDT, Pharmacy: [facility], 173, cm, [...] Start Date: 03/09/23 10:48:00 AM CDT, Pharmacy: [facility], 173, cm, 03/09/23 10:20:00 CDT, Height/Length Measured, 89.5, kg, 03/09/23 10:22:00 CDT, Weight Dosing Start Date: 03/09/23 Stop Date: 08/27/23 Status: Completed amLODIPine 5 mg oral tablet 1 tab(s), Oral, Daily, # 90 tab(s), 3 Refill(s), Start Date: 08/27/23 8:41:00 AM CDT, Pharmacy: [facility], 173, cm, [...] Start Date: 07/26/24 3:47:00 PM CDT, Pharmacy: [facility] #[id number], 173, cm, 07/26/24 15:14:00 CDT, Height/Length Measured, [...] Start Date: 07/07/24 11:58:00 AM CDT, Pharmacy: [facility] #[id number], 173, cm, 07/07/24 9:24:00 CDT, Height/Length Measured, 88.2, kg, 07/07/24 9:25:00 CDT, Weight Dosing Start Date: 07/07/24 Status: Ordered baclofen 10 mg oral tablet 1 tab(s), Oral, TID, # 30 tab(s), 0 Refill(s), Start Date: 03/09/23 10:49:00 AM CDT, Pharmacy: [facility], 173, cm, 03/09/23 10:20:00 CDT, Height/Length [...] 0 Refill(s), Start Date: 11/18/22 1:27:00 PM [employer] INST[employer]ER Start Date: 11/18/22 Stop Date: 03/09/23 Status: Discontinued baclofen 10 mg oral tablet 1 tab(s), Oral, TID, PRN PRN for pain, 0 Refill(s), Start Date: 05/15/18 11:15:00 PM CDT Start Date: 05/15/18 Stop Date: 06/16/19 Status: Completed baclofen 10 mg tablet baclofen 10 mg tablet, 1 tab(s), Oral, TID, # 30 tab(s), 2 Refill(s), Pharmacy: [facility], 173, cm, 04/09/23 15:48:00 CDT, Height/Length Measured, 87.6, kg, 04/09/23 15:50:00 CDT, Weight Dosing Start Date: 06/08/23 Stop Date: 03/31/24 Status: Completed baclofen 10 mg tablet baclofen 10 mg tablet, 1 tab(s), Oral, TID, # 30 tab(s), 2 Refill(s), Pharmacy: [facility], 173, cm, 04/09/23 15:48:00 CDT, Height/Length Measured, 87.6, kg, 04/09/23 15:50:00 CDT, Weight Dosing Start Date: 06/18/23 Stop Date: 03/31/24 Status: Completed carisoprodol 250 mg oral tablet 1 tab(s), Oral, BID, # 60 tab(s), 5 Refill(s), Start Date: 07/26/24 3:47:00 PM CDT, Pharmacy: [id number], 173, cm, 07/26/24 15:14:00 CDT, Height/Length Measured, [...] 0 Refill(s), Start Date: 11/09/18 6:34:00 PM [employer] INST[employer]ER, Pharmacy: [facility] Start Date: 11/09/18 Stop Date: 12/16/18 Status: Completed ciprofloxacin 750 mg oral tablet 1 tab(s), Oral, q12hr, 2h away from dairy, X 14 days, # 28 tab(s), 2 Refill(s), Start Date: :21:00 PM [employer]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, Pharmacy: [facility] Start Date: 09/19/18 Stop Date: 11/09/18 [...] 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 daily 3 months 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, # 1 boxes, 0 Refill(s), 03/16/19 6:45:00 [...] 3 Refill(s), Start Date: 12/20/18 1:37:00 PM [employer] INSTALLER, Pharmacy: [facility] Start Date: 12/20/18 Stop Date: 09/30/22 [...] Start Date: 04/03/24 11:55:00 AM CDT, Pharmacy: [facility], 173, cm, 03/31/24 10:46:00 CDT, Height/Length [...] Start Date: 04/19/24 10:19:00 AM CDT, Pharmacy: [facility] #[id number], 173, cm, 03/31/24 10:46:00 CDT, Height/Length Measured, 88.2, kg, 03/31/24 10:51:00 CDT, Weight Dosing Start Date: 04/19/24 Stop Date: 06/21/24 Status: Completed gabapentin 300 mg oral capsule 1 cap(s), Oral, TID, # 90 cap(s), 11 Refill(s), Start Date: 07/07/24 10:05:00 AM CDT, Pharmacy: [facility] #[id number], 173, cm, 07/07/24 9:24:00 CDT, Height/Length Measured, 88.2, kg, 07/07/24 9:25:00 CDT, Weight Dosing Start Date: 07/07/24 Stop Date: 07/11/24 Status: Discontinued hydrocodone-acetaminophen 5 mg-325 mg oral tablet See Instructions, 1/2 to 1 tab(s) Oral TID, # 60 tab(s), 0 Refill(s), Start Date: 07/11/24 2:53:00 PM CDT, Pharmacy: [facility] #[id number], 173, cm, 07/07/24 9:24:00 CDT, Height/Length Measured,88.2, kg, 07/07/24 9:25:00 CDT, Weight Dosing Start Date: 07/11/24 Stop Date: 07/26/24 Status: Discontinued ibuprofen 600 mg oral tablet 1 tab(s), Oral, QID, PRN PRN for pain, with food or milk, # 30 tab(s), 0 Refill(s), Start Date: 03/03/23 1:53:00 PM CDT, Pharmacy: [facility], 173, cm, 11/18/22 13:25:00 [employer] INST[employer]ER, Height/Length Measured, 89.5, kg, 03/03/23 12:25:00 CDT, [...] Start Date: 07/07/24 10:05:00 AM CDT, Pharmacy: [facility] #[id number], 173, cm, 07/07/24 9:24:00 CDT, Height/Length Measured, [...] Start Date: 03/31/24 11:26:00 AM CDT, Pharmacy: [facility], 173, cm, 03/31/24 10:46:00 CDT, Height/Length Measured, 88.2, kg, 03/31/24 10:51:00 CDT, Weight Dosing Start Date: 03/31/24 Stop Date: 04/11/24 Status: Completed levoFLOXacin 500 mg oral tablet 1 tab(s), Oral, Daily, For chronic recurrent sinusitis, X 10 days, # 10 tab(s), 0 Refill(s), Start Date: 04/11/24 3:29:00 PM CDT, Pharmacy: [facility], 173, cm, 03/31/24 10:46:00 CDT, Height/Length Measured, 88.2, kg, 03/31/24 10:51:00 CDT, Weight Dosing Start Date: 04/11/24 Stop Date: 04/19/24 Status: Completed levoFLOXacin 500 mg oral tablet 1 tab(s), Oral, Daily, For chronic recurrent sinusitis, # 10 tab(s), 0 Refill(s), Start Date: 04/19/24 10:19:00 AM CDT, Pharmacy: [facility] #[id number], 173, cm, 03/31/24 10:46:00 CDT, Height/Length Measured, 88.2, kg, 03/31/24 10:51:00 CDT, Weight Dosing Start Date: 04/19/24 Stop Date: 06/06/24 Status: Completed linezolid 600 mg oral tablet 1 tab(s), Oral, q12hr, generic please, # 28 tab(s), 0 Refill(s), Start Date: 11/16/18 11:41:00 AM [employer] INSTALLER, Pharmacy: [facility] Start Date: 11/16/18 Stop Date: 12/02/18 Status: Completed Medrol 4 mg oral tablet 1 packet(s), Oral, ONETIME, as directed on package labeling, # 21 tab(s), 0 Refill(s), Start Date: 11/18/22 1:39:00 PM [employer] INSTALLER, Pharmacy: [facility], 173, cm, 11/18/22 13:25:00 [employer] IN[employer]ER, Height/Length Measured, 86.3, kg, 11/18/22 13:27:00 [employer] INST[employer]ER, Weight Dosing Start Date: 11/18/22 Stop Date: 03/09/23 Status: Completed metFORMIN 500 mg oral tablet 0.5 tab(s), Oral, BID, # 30 tab(s), 11 Refill(s), Start Date: 04/03/24 11:56:00 AM CDT, Pharmacy: [facility], 173, cm, 03/31/24 10:46:00 CDT, Height/Length Measured, 88.2, kg, 03/31/24 10:51:00 CDT, Weight Dosing Start Date: 04/03/24 Stop Date: 04/19/24 Status: Completed metFORMIN 500 mg oral tablet 0.5 tab(s), Oral, BID, # 30 tab(s), 11 Refill(s), Start Date: 04/19/24 10:19:00 AM CDT, Pharmacy: [facility] #[id number], 173, cm, 03/31/24 10:46:00 CDT, Height/Length Measured, 88.2, kg, 03/31/2410:51:00 CDT, Weight Dosing Start Date: 04/19/24 Stop Date: 06/21/24 Status: Completed metFORMIN 500 mg oral tablet 1 tab(s), Oral, BID, # 180 tab(s), 3 Refill(s), Start Date: 07/07/24 11:58:00 AM CDT, Pharmacy: [facility] #[id number], 173, cm, 07/07/24 9:24:00 CDT, Height/Length Measured, 88.2, kg, 07/07/24 9:25:00 CDT, Weight Dosing Start Date: 07/07/24 Status: Ordered MiraLax oral powder for reconstitution 17 gm, Oral, Daily, Dissolve in water before taking, # 255 gm, 0 Refill(s), Start Date: 05/21/18 10:05:00 AM CDT, Pharmacy: [id number] Start Date: 05/21/18 Stop Date: 03/31/24 Status: Completed MS Contin 15 mg oral tablet, extended release 2 tab(s), Oral, q12hr, # 28 tab(s), 0 Refill(s), Start Date: 05/21/18 10:04:00 AM CDT, Pharmacy: [id number] Start Date: 05/21/18 Stop Date: 09/09/18 Status: Completed MS Contin 30 mg oral tablet, extended release 1 tab(s), Oral, q12hr interval, 0 Refill(s), Start Date: 09/12/18 9:49:00 AM CDT Start Date: 09/12/18 Stop Date: 06/16/19 Status: Completed Multi-Day Plus Minerals oral tablet 1 tab(s), Oral, Daily, # 30 tab(s), 0 Refill(s), Start Date: 09/30/22 3:49:00 PM [employer] INST[employer]ER Start Date: 09/30/22 Stop Date: 06/21/24 Status: Completed Narcan 4 mg/0.1 mL nasal spray 1 spray(s), Nasal, ONETIME, # 2 EA, 11 Refill(s), Start Date: 07/07/24 10:15:00 AM CDT, Pharmacy: [facility] #[id number], 173, cm, 07/07/24 9:24:00 CDT, Height/Length Measured, 88.2, kg, :25:00 CDT, Weight Dosing Start Date: 07/07/24 Stop Date: 07/26/24 Status: Discontinued Narcan 4 mg/0.1 mL nasal spray 1 spray(s), Nasal, ONETIME, # 2 EA, 0 Refill(s), Start Date: 08/25/24 3:51:00 PM CDT, Pharmacy: [facility], 173, cm, 07/26/24 15:14:00 CDT, Height/Length Measured, 88, kg, 08/17/24 7:54:00 CDT, Weight Dosing Start Date: 08/25/24 Status: Ordered oxycodone-acetaminophen 10 mg-325 mg oral tablet 0 Refill(s), Start Date: 11/18/22 1:27:00 PM [employer] INSTALLER Start Date: 11/18/22 Stop Date: 04/09/23 Status: [...] Start Date: 09/06/24 2:38:00 PM CDT, Pharmacy: [id number], 173, cm, 09/06/24 14:02:00 [...] Start Date: 09/13/24 12:13:00 PM CDT, Pharmacy: [id number], 173, cm, 09/13/24 8:29:00 CDT, Height/Length Measured, 85, kg, 09/13/24 8:32:00 CDT, Weight Dosing Start Date: 09/13/24 Status: Ordered oxycodone-acetaminophen 5 mg-325 mg oral tablet 1 tab(s), Oral, TID, PRN PRN pain moderate 4-7, # 42 tab(s), 0 Refill(s), Start Date: 07/07/24 10:05:00 AM CDT, Pharmacy: [facility] #[id number], 173, cm, 07/07/24 9:24:00 CDT, Height/Length Measured, 88.2, kg, 07/07/24 9:25:00 CDT, Weight Dosing Start Date: 07/07/24 Stop Date: 07/11/24 Status: Discontinued oxycodone-acetaminophen 5 mg-325 mg oral tablet 1 tab(s), Oral, TID, PRN PRN pain severe 8-10, # 90 tab(s), 0 Refill(s), Start Date: 08/25/24 10:49:00 AM CDT, Pharmacy: [facility], 173, cm, 07/26/24 15:14:00 [...] Start Date: 05/17/18 4:24:00 PM CDT, Pharmacy: [facility] [id number] Start Date: 05/17/18 Stop Date: 09/09/18 Status: Completed Percocet 5/325 oral tablet See Instructions, PRN PRN for pain, 1 tab(s) Oral q6hr not to exceed 4000 mg acetaminophen per day, # 60 tab(s), 0 Refill(s), Start Date: 09/14/18 9:23:00 AM CDT, Pharmacy: [facility] Start Date: 09/14/18 Stop Date: 06/16/19 Status: Completed predniSONE 10 mg oral tablet 3 tab(s), Oral, BID, For inflammation and pain, # 84 tab(s), 0 Refill(s), Start Date: 08/10/24 9:14:00 AM CDT, Pharmacy: [facility], 173, cm, 07/26/24 15:14:00 CDT, Height/Length Measured, 88, kg, 07/26/24 15:24:00 CDT, Weight Dosing Start Date: 08/10/24 Stop Date: 08/25/24 Status: Discontinued predniSONE 10 mg oral tablet 3 tab(s), Oral, BID, For inflammation and pain, # 84 tab(s), 0 Refill(s), Start Date: 07/26/24 3:47:00 PM CDT, Pharmacy: [facility] #[id number], 173, cm, 07/26/24 15:14:00 CDT, Height/Length Measured, [...] 10:05:00 AM CDT, Pharmacy: [facility] [id number] Start Date: 05/21/18 Stop Date: 05/31/18 Status: Completed tamsulosin 0.4 mg oral capsule 1 cap(s), Oral, Daily, # 90 cap(s), 3 Refill(s), Start Date: 12/20/18 1:38:00 PM [employer] INSTALLER, Pharmacy: [facility] Start [...] Start Date: 03/03/23 1:54:00 PM CDT, Pharmacy: [facility], 173, cm, 11/18/22 13:25:00 CUL[employer] INSTALLER, Height/Length Measured, 89.5, kg, 03/03/23 12:25:00 CDT, Weight Dosing Start Date: 03/03/23 Stop Date: 03/31/24 Status: Completed vancomycin 1 g intravenous injection IV, q12hr interval, prescribed by Dr Perdue, 0 Refill(s), Start Date: 10/21/18 8:45:00 AM [employer] INSTALLER Start Date: 10/21/18 Stop Date: 11/16/18 Status: Completed Zinc 140 mg (as elemental zinc 50 mg) oral tablet 1 tab(s), Oral, Daily, # 90 tab(s), 0 Refill(s), Start Date: 09/30/22 3:48:00 PM [employer] INSTALLER Start Date: 09/30/22 Stop Date: 06/21/24 Status: [...] Procedure Date Related Diagnosis Body Site Status ROUTINE VENIPUNCTURE 09/13/24 Comp leted ROUTINE VENIPUNCTURE 09/13/24 Comp leted ROUTINE VENIPUNCTURE 09/13/24 Comp leted ROUTINE VENIPUNCTURE 09/13/24 Comp leted ROUTINE VENIPUNCTURE 09/13/24 Comp leted Epidural Steroid Injection - Lumbar 1 06/21/24 [...] Elbow surgery from elbow to forearm 14left [id number] procedure 16left 17LT Rotator Cuff Repair 18right 19RT Tendon Repair 20right side 21RT Wrist Surgery- Frzn wrist- 2 screws Results Laboratory List Name Date Troponin-I High Sensitivity 09/13/24 .eGFR 09/13/24 Automated Diff 09/13/24 CBC With Differential 09/13/24 Comprehensive Metabolic Panel (CMP) 08/17 PTT (Partial Thromboplastin Time) Protime (INR) 09/13/24 Troponin-I High Sensitivity 09/13/24 Most recent to oldest [Reference Range]: 1 2 3 WBC [4.8-10.8 thou/mm3] 7.5 thou/mm3 (09/13/24 8:30 AM) RBC [4.00-5.20 Mil/mm3] 4.81 Mil/mm3 (09/13/24 8:30 AM) Neutrophils % Auto [35.0-75.0 %] 60.2 % (09/13/24 8:30 AM) Lymphocytes % Auto [15.0-50.0 %] 25.1 % (09/13/24 8:30 AM) Monocytes % Auto [4.0-12.0 %] 11.7 % (09/13/24 8:30 AM) Eosinophils % Auto [0.2-7.0 %] 2.5 % (09/13/24 8:30 AM) Basophil % Auto [0.0-1.2 %] 0.4 % (09/13/24 8:30 AM) PT [9.9-12.4 seconds] 11.6 seconds (09/13/24 8:30 AM) INR [0.9-1.2 INR] 1.0 INR (09/13/24 8:30 AM) BUN [7-18 mg/dL] 15 mg/dL (09/13/24 8:30 AM) A/G Ratio 1 *NA* (09/13/24 8:30 AM) Albumin Lvl [3.4-5.0 g/dL] 3.9 g/dL (09/13/24 8:30 AM) Alkaline Phosphatase [46-116 unit/L] 86 unit/L (09/13/24 8:30 AM) ALT [16-63 unit/L] 44 unit/L (09/13/24 8:30 AM) Absolute Neutrophil Count [1.5-6.0 thou/mm3] 4.5 thou/mm3 (09/13/24 8:30 AM) Anion Gap [5.0-15.0 mEq/L] 14.1 mEq/L (09/13/24 8:30 AM) AST [15-37 unit/L] 29 unit/L (09/13/24 8:30 AM) Basophil Absolute [0.01-0.14 thou/mm3] 0.03 thou/mm3 (09/13/24 8:30 AM) CO2 Lvl [21.0-32.0 mmol/L] 27.0 mmol/L (09/13/24 8:30 AM) Bilirubin Total [0.2-1.0 mg/dL] 0.6 mg/dL (09/13/24 8:30 AM) Calcium Lvl [8.5-10.1 mg/dL] 9.5 mg/dL (09/13/24 8:30 AM) Chloride Lvl [98-107 mEq/L] 104 mEq/L (09/13/24 8:30 AM) Creatinine Lvl [0.70-1.30 mg/dL] 0.97 mg/dL (09/13/24 8:30 AM) Eosinophil Absolute [0.01-1.00 thou/mm3] 0.19 thou/mm3 (09/13/24 8:30 AM) Glucose Lvl [74-106 mg/dL] 132 mg/dL *HI* (09/13/24 8:30 AM) Hct [40-54 %] 45 % (09/13/24 8:30 AM) Hgb [14.0-18.0 g/dL] 15.8 g/dL (09/13/24 8:30 AM) Immature Granulocyte Auto 0.1 % *NA* (09/13/24 8:30 AM) Immature Gran Absolute 0.01 thou/mm3 *NA* (09/13/24 8:30 AM) Lymphocytes Absolute [1.2-4.0 thou/mm3] 1.9 thou/mm3 (09/13/24 8:30 AM) MCH [21.0-35.0 pg/cell] 32.8 pg/cell (09/13/24 8:30 AM) MCHC [30.0-36.0 g/dL] 35.4 g/dL (09/13/24 8:30 AM) MCV [80.0-99.0 fL] 92.7 fL (09/13/24 8:30 AM) Monocytes Absolute [0.1-1.4 thou/mm3] 0.9 thou/mm3 (09/13/24 8:30 AM) MPV 9.9 fL *NA* (09/13/24 8:30 AM) Platelet [130-400 thou/mm3] 201 thou/mm3 (09/13/24 8:30 AM) Potassium Lvl [3.5-5.1 mEq/L] 4.1 mEq/L (09/13/24 8:30 AM) PTT [27-36 seconds] 30 seconds (09/13/24 8:30 AM) Sodium Lvl [136-145 mEq/L] 141 mEq/L (09/13/24 8:30 AM) Total Protein [6.4-8.2 g/dL] 7.5 g/dL (09/13/24 8:30 AM) BUN/Creat Ratio [9.0-21.6] 15.5 (09/13/24 8:30 AM) Globulin 4 *NA* (09/13/24 8:30 AM) Heart Rate Monitored [60-100 bpm] 58 bpm *LOW* (09/13/24 11:00 AM) 66 bpm (09/13/24 10:45 AM) 63 bpm (09/13/24 10:30 AM) hsTrop-I [0-54 ng/L] 5 ng/L 1 (09/13/24 10:42 AM) 5 ng/L 2 (09/13/24 8:30 AM) Weight Measured 85 kg (09/13/24 8:29 AM) Height/Length Measured 173 cm (09/13/24 8:29 AM) Body Mass Index Measured 28.4 kg/m2 (09/13/24 8:29 AM) eGFR CKD-EPI [>=60] 84 (09/13/24 8:30 AM) RDW CV [11-16 %] 12 % (09/13/24 8:30 AM) Respiratory Rate [14-20 br/min] 18 br/min (09/13/24 11:00 AM) 15 br/min (09/13/24 10:45 AM) 17 br/min (09/13/24 10:30 AM) 1Interpretive Data: The following hsTrop-I Algorithim is most sensitive when chest pain onset is greater than or equal to three hours. RULE IN Initial hsTrop-I result is greater than or equal to 120ng/L (all genders) ??? Recommended Admission OBSERVATION Initial hsTrop-I result is 34-119 ng/L (female/unknown), 54-119 ng/L (male), OR 2-hour hsTrop-I delta change is 7-19 ng/L ??? Further evaluation recommended RULE OUT Initial hsTrop-I result is less than 34(female/unknown), less than 54 ng/L(male), AND 2-hour delta change is less that 7ng/L Consider discharge or further evaluation 2Interpretive Data: The following hsTrop-I Algorithim is most sensitive when chest pain onset is greater than or equal to three hours. RULE IN Initial hsTrop-I result is greater than or equal to 120ng/L (all genders) ??? Recommended Admission OBSERVATION Initial hsTrop-I result is 34-119 ng/L (female/unknown), 54-119 ng/L (male), OR 2-hour hsTrop-I delta change is 7-19 ng/L ??? Further evaluation recommended RULE OUT Initial hsTrop-I result is less than 34(female/unknown), less than 54 ng/L(male), AND 2-hour delta change is less that 7ng/L Consider discharge or further evaluation Radiology Reports * Exam Date Time Procedure Performing Provider Status 09/13/24 9:51 AM CR Chest PA and LAT Jacqui Palaciopily r; Auth (Verified) Notes: (CR Chest PA and LAT) Reason For Exam: Chest Pain Report TWO VIEW CHEST CLINICAL HISTORY: Chest pain. Hypertension. TECHNIQUE: Frontal and lateral views of the chest. COMPARISON: 11/29/2017. FINDINGS: Devices: None. Lungs and pleura: No consolidation or pleural effusion. No pneumothorax. There are old granulomatous changes. Mild elevation of the RIGHT hemidiaphragm. Heart: Normal cardiac silhouette. Mediastinum: Within normal limits. Bones: No acute osseous abnormality. There are degenerative changes of the spine and shoulders. Hathaway screws traversing the proximal RIGHT and LEFT humerus. Other: None. IMPRESSION: 1. No acute cardiopulmonary process. Electronically signed by Lucien Bell. Final Dictated by: Lucien Bell MD Dictated DT/TM: 09/13/2024 9:52 am Signed by: Lucien Bell MD Signed (Electronic Signature): 09/13/2024 9:53 am Vital Signs Most recent to oldest [Reference Range]: 1 2 3 Temperature Temporal Artery [36.5-37.3 DegC] 36.6 DegC (09/13/24 8:29 AM) Heart Rate Monitored [60-100 bpm] 58 bpm *LOW* (09/13/24 11:00 AM) 66 bpm (09/13/24 10:45 AM) 63 bpm (09/13/24 10:30 AM) Respiratory Rate [14-20 br/min] 18 br/min (09/13/24 11:00 AM) 15 br/min (09/13/24 10:45 AM) 17 br/min (09/13/24 10:30 AM) SpO2 [95 %] 96 % (09/13/24 11:00 AM) 97 % (09/13/24 10:45 AM) 96 % (09/13/24 10:30 AM) Blood Pressure [90-130/60-90 mmHg] 144/89mmHg *HI* (09/13/24 11:00 AM) 141/114mmHg *HI* (09/13/24 10:45 AM) 136/94mmHg *HI* (09/13/24 10:30 AM) Mean Arterial Pressure Monitor Measure 105 mmHg (09/13/24 11:00 AM) 122 mmHg (09/13/24 10:45 AM) 107 mmHg (09/13/24 10:30 AM) Height/Length Measured 173 cm (09/13/24 8:29 AM) Weight Dosing 85.00 kg 1 (09/13/24 8:32 AM) Weight Measured 85 kg (09/13/24 8:29 AM) Body Mass Index Measured 28.4 kg/m2 (09/13/24 8:29 AM) 1Result Comment: This result was because the dosing weight was either not entered or it is >30 days old. This result is based off: Weight Measured September 13, 2024 08:29:00 CDT by John Soliman RN Social History Social History Type Response Sex Male Patient Care team information Personnel Name: Carlos Enrique Obando MD Address: Address: [address] [address]- [place]
--- OUTSIDE RECORDS SUMMARY | 2024-11-23 00:07 | XMS_ITS | Continuity of Care Document ---
Author Organization Orthopedics [facility] Address [address] [facility] [address] [place] [address] Care Team Providers Care Sound Printer Name Role Phone Carlos Enrique Obando Primary Care Physician Encounter Date(s): 06/06/24 - 06/06/24 Orthoped[facility] [address] [place] [address]- Encounter Diagnosis Chronic low back pain(Discharge Diagnosis) - 06/06/24 Discharge Disposition: 01 Discharged to Home or Self Care Attending Physician: MERON Rashid Referring Physician: Carlos Enrique Obando MD Allergies, Adverse Reactions, Alerts No [...] Start Date: 04/22/23 10:25:00 AM CDT, Pharmacy: [facility], 173, cm, 04/09/23 15:48:00 CDT, Height/Length [...] Start Date: 03/09/23 10:48:00 AM CDT, Pharmacy: [facility], 173, cm, 03/09/23 10:20:00 CDT, Height/Length Measured, 89.5, kg, 03/09/23 10:22:00 CDT, Weight Dosing Start Date: 03/09/23 Stop Date: 08/27/23 Status: Completed amLODIPine 5 mg oral tablet 1 tab(s), Oral, Daily, # 90 tab(s), 3 Refill(s), Start Date: 08/27/23 8:41:00 AM CDT, Pharmacy: [facility], 173, cm, 04/09/23 15:48:00 CDT, Height/Length [...] Start Date: 03/09/23 10:49:00 AM CDT, Pharmacy: [facility], 173, cm, 03/09/23 10:20:00 CDT, Height/Length Measured, 89.5, kg, 03/09/23 10:22:00 CDT,Weight Dosing Start Date: 03/09/23 Stop Date: 04/22/23 Status: Completed baclofen 10 mg oral tablet 1 tab(s), Oral, TID, # 30 tab(s), 1 Refill(s), Start Date: 04/22/23 11:37:00 AM CDT, Pharmacy: [facility], 173, cm, 04/09/23 15:48:00 CDT, Height/Length Measured, 87.6, kg, 04/09/23 15:50:00 CDT, Weight Dosing Start Date: 04/22/23 Stop Date: 03/31/24 Status: Completed baclofen 10 mg oral tablet 0 Refill(s), Start Date: 11/18/22 1:27:00 PM DAIRY MANAGER Start Date: 11/18/22 Stop Date: 03/09/23 Status: Discontinued baclofen 10 mg oral tablet 1 tab(s), Oral, TID, PRN PRN for pain, 0 Refill(s), Start Date: 05/15/18 11:15:00 PM CDT Start Date: 05/15/18 Stop Date: 06/16/19 Status: Completed baclofen 10 mg tablet baclofen 10 mg tablet, 1 tab(s), Oral, TID, # 30 tab(s), 2 Refill(s), Pharmacy: [facility], 173, cm, 04/09/23 15:48:00 CDT, Height/Length Measured, 87.6, kg, 04/09/23 15:50:00 CDT, Weight Dosing Start Date: 06/08/23 Stop Date: 03/31/24 Status: Completed baclofen 10 mg tablet baclofen 10 mg tablet, 1 tab(s), Oral, TID, # 30 tab(s), 2 Refill(s), Pharmacy: [facility], 173, cm, 04/09/23 15:48:00 CDT, Height/Length [...] Refill(s), Start Date: 11/09/18 6:34:00 PM DAIRY MANAGER, Pharmacy: [facility] Start Date: 11/09/18 Stop Date: 12/16/18 Status: Completed ciprofloxacin 750 mg oral tablet 1 tab(s), Oral, q12hr, 2h away from dairy, X 14 days, # 28 tab(s), 2 Refill(s), Start Date: 182:21:00 PM DAIRY MANAGER, Pharmacy: [facility] Start Date: 09/19/18 Stop Date: 11/09/18 [...] 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 daily 3 months 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, # 1 boxes, 0 Refill(s), 03/16/19 6:45:00 [...] Refill(s), Start Date: 12/20/18 1:37:00 PM DAIRY MANAGER, Pharmacy: [facility] Start Date: 12/20/18 Stop Date: 09/30/22 Status: Completed finasteride 5 mg oral tablet 1 tab(s), Oral, Daily, # 30 tab(s), 0 Refill(s), Start Date: 03/31/24 10:43:00 AM CDT Start Date: 03/31/24 Status: Ordered fluticasone 50 mcg/inh nasal spray 2 spray(s), Nasal, BID, X 42 days, # 16 gm, 11 Refill(s), Start Date: 04/03/24 11:55:00 AM CDT, Pharmacy: [facility], 173, cm, 03/31/24 10:46:00 CDT, Height/Length [...] Start Date: 04/19/24 10:19:00 AM CDT, Pharmacy: [facility] #[id number], 173, cm, 03/31/24 10:46:00 CDT, Height/Length Measured, 88.2, kg, 03/31/24 10:51:00 CDT, Weight Dosing Start Date: 04/19/24 Stop Date: 09/05/25 Status: Ordered ibuprofen 600 mg oral tablet 1 tab(s), Oral, QID, PRN PRN for pain, with food or milk, # 30 tab(s), 0 Refill(s), Start Date: 03/03/23 1:53:00 PM CDT, Pharmacy: [facility], 173, cm, 11/18/22 13:25:00 DAIRY MANAGER, Height/Length Measured, 89.5, kg, 03/03/23 12:25:00 [...] Start Date: 03/31/24 11:26:00 AM CDT, Pharmacy: [facility], 173, cm, 03/31/24 10:46:00 CDT, Height/Length Measured, 88.2, kg, 03/31/24 10:51:00 CDT, Weight Dosing Start Date: 03/31/24 Stop Date: 04/11/24 Status: Completed levoFLOXacin 500 mg oral tablet 1 tab(s), Oral, Daily, For chronic recurrent sinusitis, X 10 days, # 10 tab(s), 0 Refill(s), Start Date: 04/11/24 3:29:00 PM CDT, Pharmacy: [facility], 173, cm, 03/31/24 10:46:00 CDT, Height/Length Measured, 88.2, kg, 03/31/24 10:51:00 CDT, Weight Dosing Start Date: 04/11/24 Stop Date: 04/19/24 Status: Completed levoFLOXacin 500 mg oral tablet 1 tab(s), Oral, Daily, For chronic recurrent sinusitis, # 10 tab(s), 0 Refill(s), Start Date: 04/19/24 10:19:00 AM CDT, Pharmacy: [facility] #[id number], 173, cm, 03/31/24 10:46:00 CDT, Height/Length Measured, 88.2, kg, 03/31/24 10:51:00 CDT, Weight Dosing Start Date: 04/19/24 Stop Date: 06/06/24 Status: Completed linezolid 600 mg oral tablet 1 tab(s), Oral, q12hr, generic please, # 28 tab(s), 0 Refill(s), Start Date: 11/16/18 11:41:00 AM DAIRY MANAGER, Pharmacy: [facility] Start Date: 11/16/18 Stop Date: 12/02/18 Status: Completed Medrol 4 mg oral tablet 1 packet(s), Oral, ONETIME, as directed on package labeling, # 21 tab(s), 0 Refill(s), Start Date: 11/18/22 1:39:00 PM DAIRY MANAGER, Pharmacy: [facility], 173, cm, 11/18/22 13:25:00 DAIRY MANAGER, Height/Length Measured, 86.3, kg, 11/18/22 13:27:00 DAIRY MANAGER, Weight Dosing Start Date: 11/18/22 Stop Date: 03/09/23 Status: Completed metFORMIN 500 mg oral tablet 0.5 tab(s), Oral, BID, # 30 tab(s), 11 Refill(s), Start Date: 04/03/24 11:56:00 AM CDT, Pharmacy: [facility], 173, cm, 03/31/24 10:46:00 CDT, Height/Length Measured, 88.2, kg, 03/31/24 10:51:00 CDT, Weight Dosing Start Date: 04/03/24 Stop Date: 04/19/24 Status: Completed metFORMIN 500 mg oral tablet 0.5 tab(s), Oral, BID, # 30 tab(s), 11 Refill(s), Start Date: 04/19/24 10:19:00 AM CDT, Pharmacy: [facility] #[id number], 173, cm, 03/31/24 10:46:00 CDT, Height/Length Measured, 88.2, kg, 03/31/2410:51:00 CDT, Weight Dosing Start Date: 04/19/24 Status: Ordered MiraLax oral powder for reconstitution 17 gm, Oral, Daily, Dissolve in water before taking, # 255 gm, 0 Refill(s), Start Date: 05/21/18 10:05:00 AM CDT, [email or web address] [id number] Start Date: 05/21/18 Stop Date: 03/31/24 Status: Completed MS Contin 15 mg oral tablet, extended release 2 tab(s), Oral, q12hr, # 28 tab(s), 0 Refill(s), Start Date: 05/21/18 10:04:00 AM CDT, [facility] [id number] Start Date: 05/21/18 Stop Date: 09/09/18 Status: Completed MS Contin 30 mg oral tablet, extended release 1 tab(s), Oral, q12hr interval, 0 Refill(s), Start Date: 09/12/18 9:49:00 AM CDT Start Date: 09/12/18 Stop Date: 06/16/19 Status: Completed Multi-Day Plus Minerals oral tablet 1 tab(s), Oral, Daily, # 30 tab(s), 0 Refill(s), Start Date: 09/30/22 3:49:00 PM DAIRY MANAGER Start Date: 09/30/22 Status: Ordered oxycodone-acetaminophen 10 mg-325 mg oral tablet 0 Refill(s), Start Date: 11/18/22 1:27:00 PM DAIRY MANAGER Start Date: 11/18/22 Stop Date: 04/09/23 [...] Start Date: 05/17/18 4:24:00 PM CDT, Pharmacy: [facility] [id number] Start Date: 05/17/18 Stop Date: 09/09/18 Status: Completed Percocet 5/325 oral tablet See Instructions, PRN PRN for pain, 1 tab(s) Oral q6hr not to exceed 4000 mg acetaminophen per day,# 60 tab(s), 0 Refill(s), Start Date: 09/14/18 9:23:00 AM CDT, Pharmacy: [facility] Start Date: 09/14/18 Stop Date: 06/16/19 Status: Completed pregabalin 75 mg oral capsule 1 cap(s), Oral, BID, 0 Refill(s), Start Date: 03/31/24 10:44:00 AM CDT Start Date: 03/31/24 Status: Ordered Senokot S 50 mg-8.6 mg oral tablet 1 tab(s), Oral, BID, X 10 days, # 20 tab(s), 0 Refill(s), Start Date: 05/21/18 10:05:00 AM CDT, Pharmacy: [facility] [id number] Start Date: 05/21/18 Stop Date: 05/31/18 Status: Completed tamsulosin 0.4 mg oral capsule 1 cap(s), Oral, Daily, # 90 cap(s), 3 Refill(s), Start Date: 12/20/18 1:38:00 PM DAIRY MANAGER, Pharmacy: [facility] Start Date: 12/20/18 Stop Date: 09/30/22 Status: Completed tamsulosin 0.4 mg oral capsule 1 cap(s), Oral, Daily, 0 Refill(s), Start Date: 09/09/18 7:57:00 AM CDT Start Date: 09/09/18 Stop Date: 12/20/18 Status: Discontinued traMADol 50 mg oral tablet 1 tab(s), Oral, q4hr interval, PRN PRN as needed for pain, # 12 tab(s), 0 Refill(s), Start Date: 03/03/23 1:54:00 PM CDT, Pharmacy: [facility], 173, cm, 11/18/22 13:25:00 DAIRY MANAGER, Height/Length Measured, 89.5, kg, 03/03/23 12:25:00 CDT, Weight Dosing Start Date: 03/03/23 Stop Date: 03/31/24 Status: Completed vancomycin 1 g intravenous injection IV, q12hr interval, prescribed by Dr Perdue, 0 Refill(s), Start Date: 10/21/18 8:45:00 AM DAIRY MANAGER Start Date: 10/21/18 Stop Date: 11/16/18 Status: Completed Zinc 140 mg (as elemental zinc 50 mg) oral tablet 1 tab(s), Oral, Daily, # 90 tab(s), 0 Refill(s), Start Date: 09/30/22 3:48:00 PM DAIRY MANAGER Start Date: 09/30/22 Status: Ordered Problem [...] Elbow surgery from elbow to forearm 13left [id number] procedure 15left 16LT Rotator Cuff Repair 17right 18RT Tendon Repair 19right side 20RT Wrist Surgery- Frzn wrist- 2 screws Results Most recent to oldest [Reference Range]: 1 Weight Measured 85.2 kg (06/06/24 9:55 AM) Height/Length Measured 173 cm (06/06/24 9:55 AM) Body Mass Index Measured 28.47 kg/m2 (06/06/24 9:55 AM) Vital Signs Most recent to oldest [Reference Range]: 1 Height/Length Measured 173 cm (06/06/24 9:55 AM) Weight Dosing 85.20 kg 1 (06/06/24 9:58 AM) Weight Measured 85.2 kg (06/06/24 9:55 AM) BSA Measured 1.99 m2 (06/06/24 9:55 AM) Body Mass Index Measured 28.47 kg/m2 (06/06/24 9:55 AM) 1Result Comment: This result was because the dosing weight was either not entered or it is >30 days old. This result is based off: Weight Measured June 06, 2024 09:55:00 CDT by Gina Workman, [employer] Social History Social History Type Response Sex Male Patient Care team information Personnel Name: Carlos Enrique Obando MD Address: Address: [address] [place] [address]
--- OUTSIDE RECORDS SUMMARY | 2024-11-23 00:07 | XMS_ITS | Summary of Care ---
Author Organization Internal Medicine [facility] Address [address] [place] [address] Care Team Providers Care Mechanical Apprentice Name Role Phone Froylan Nash Primary Care Physician [phone] Encounter Date(s): 09/30/22 - 09/30/22 Internal [facility] [address] [place] [address]- Encounter Diagnosis Gait difficulty(Discharge Diagnosis) - 09/29/22 BPH (benign prostatic hyperplasia)(Discharge Diagnosis) - 09/29/22 Ankle wound(Discharge Diagnosis) - 09/29/22 Chronic pain syndrome(Discharge Diagnosis) - 09/29/22 Discharge Disposition: 01 Discharged to Home or Self Care Attending Physician: MERON Jackson Referring Physician: MERON Jackson Vital Signs Most recent to oldest [Reference Range]: 1 Temperature Temporal Artery [36.3-37.8 D egC] 37.1 DegC (09/30/22 3:39 PM) Peripheral Pulse Rate [60-100 bpm] 84 bp m (09/30/22 3:39 PM) Respiratory Rate [14-20 br/min] 16 br/mi n (09/30/22 3:39 PM) Blood Pressure [90-140/60-90 mmHg] 140/7 8mmHg (09/30/22 3:39 PM) SpO2 [90-100 %] 97 % (09/30/22 3:39 PM) Mean Arterial Pressure, Cuff 99 mmHg (09/30/22 3:39 PM) Height/Length Estimated 180 cm (09/30/22 3:39 PM) Weight Dosing 89.10 kg 1 (09/30/22 3:43 PM) Weight Measured 89.1 kg (09/30/22 3:39 PM) 1Result Comment: This result was because the dosing weight was either not entered or it is >30 days old. This result is based off: Weight Measured September 30, 2022 15:39:00 FACING CUTTING MACHINE OPERATOR by Leelee Bonilla RN Problem List Condition Confirmation Course Effective [...] tab(s), 0 Refill(s), Start Date: 11/09/18 18:34:00 FACING CUTTING MACHINE OPERATOR, Pharmacy: [facility] Start Date: 11/09/18 Stop Date: 12/16/18 Status: Completed ciprofloxacin 750 mg oral tablet 1 tab(s), Oral, q12hr, 2h away from dairy, X 14 days, # 28 tab(s), 2 Refill(s), Start Date: 09/19/18 14:21:00 FACING CUTTING MACHINE OPERATOR, Pharmacy: [facility] Start Date: 09/19/18 Stop Date: 11/09/18 [...] 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 daily 3 months 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, # 1 boxes, 0 Refill(s), 03/16/19 18:45:00 [...] tab(s), 3 Refill(s), Start Date: 12/20/18 13:37:00 FACING CUTTING MACHINE OPERATOR, Pharmacy: [facility] Start Date: 12/20/18 Stop Date: [...] tab(s), 0 Refill(s), Start Date: 11/16/18 11:41:00 FACING CUTTING MACHINE OPERATOR,Pharmacy: [facility] Start Date: 11/16/18 Stop Date: 12/02/18 Status: Completed MiraLax oral powder for reconstitution 17 gm, Oral, Daily, Dissolve in water before taking, # 255 gm, 0 Refill(s), Start Date: 05/21/18 10:05:00 CDT, Pharmacy: [facility] [id number] Start Date: 05/21/18 Status: Ordered MS Contin 15 mg oral tablet, extended release 2 tab(s), Oral, q12hr, # 28 tab(s), 0 Refill(s), Start Date: 05/21/18 10:04:00 CDT, Pharmacy: [facility] [id number] Start Date: 05/21/18 Stop Date: 09/09/18 Status: Completed MS Contin 30 mg oral tablet, extended release 1 tab(s), Oral, q12hr interval, 0 Refill(s), Start Date: 09/12/18 9:49:00 CDT Start Date: 09/12/18 Stop Date: 06/16/19 Status: Completed Multi-Day Plus Minerals oral tablet 1 tab(s), Oral, Daily, # 30 tab(s), 0 Refill(s), Start Date: 09/30/22 15:49:00 FACING CUTTING MACHINE OPERATOR Start Date: 09/30/22 Status: Ordered oxyCODONE-acetaminophen 10 mg-325 mg oral [...] 0Refill(s), Start Date: 05/17/18 16:24:00 CDT, Pharmacy: [facility] [id number] Start Date: 05/17/18 Stop Date: 09/09/18 Status: Completed Percocet 5/325 oral tablet See Instructions, PRN PRN for pain, 1 tab(s) Oral q6hr not to exceed 4000 mg acetaminophen per day,# 60 tab(s), 0 Refill(s), Start Date: 09/14/18 9:23:00 CDT, Pharmacy: [facility] Start Date: 09/14/18 Stop Date: 06/16/19 Status: Completed Senokot S 50 mg-8.6 mg oral tablet 1 tab(s), Oral, BID, X 10 days, # 20 tab(s), 0 Refill(s), Start Date: 05/21/18 10:05:00 CDT, [facility] [id number] Start Date: 05/21/18 Stop Date: 05/31/18 Status: Completed tamsulosin 0.4 mg oral capsule 1 cap(s), Oral, Daily, # 90 cap(s), 3 Refill(s), Start Date: 12/20/18 13:38:00 FACING CUTTING MACHINE OPERATOR, Pharmacy: [facility] Start Date: 12/20/18 Stop Date: 09/30/22 Status: Completed tamsulosin 0.4 mg oral capsule 1 cap(s), Oral, Daily, 0 Refill(s), Start Date: 09/09/18 7:57:00 CDT Start Date: 09/09/18 Stop Date: 12/20/18 Status: Discontinued vancomycin 1 g intravenous injection IV, q12hr interval, prescribed by Dr Perdue, 0 Refill(s), Start Date: 10/21/18 8:45:00 FACING CUTTING MACHINE OPERATOR Start Date: 10/21/18 Stop Date: 11/16/18 Status: Completed Zinc 140 mg (as elemental zinc 50 mg) oral tablet 1 tab(s), Oral, Daily, # 90 tab(s), 0 Refill(s), Start Date: 09/30/22 15:48:00 FACING CUTTING MACHINE OPERATOR Start Date: 09/30/22 Status: Ordered Results Most recent to oldest [Reference Range]: 1 Weight Measured 89.1 kg (09/30/22 3:39 PM) Systolic Blood Pressure [90-140 mmHg] 14 0 mmHg (09/30/22 3:39 PM) Diastolic Blood Pressure [60-90 mmHg] 78 mmHg (09/30/22 3:39 PM) Respiratory Rate [14-20 br/min] 16 br/mi n (09/30/22 3:39 PM) Immunizations Given and Recorded Vaccine Date [...]
--- OUTSIDE RECORDS SUMMARY | 2024-11-23 00:08 | XMS_ITS | Continuity of Care Document ---
Author Organization [facility] Address [address] [facility] [address] [place] [address] Care Team Providers Care Prototype Assembler Electronics Name Role Phone Carlos Enrique Obando Primary Care Physician Encounter Date(s): 10/26/24 - 10/26/24 Family Medicine [facility] [address] [place] [address]- Discharge Disposition: 01 Discharged to Home or [...] Start Date: 04/22/23 10:25:00 AM CDT, Pharmacy: [facility], 173, cm, 04/09/23 15:48:00 CDT, Height/Length [...] # 30 tab(s), 0 Refill(s), Start Date: 10/26/24 3:34:00 PM [facility], Pharmacy: [facility], 173, cm, 09/13/24 8:29:00 CDT, Height/Length Measured, 85, kg, 09/13/24 8:32:00 CDT, Weight Dosing Start Date: 10/26/24 Status: Ordered amLODIPine 10 mg oral tablet 1 tab(s), Oral, Daily, # 90 tab(s), 0 Refill(s), Start Date: 08/25/24 10:07:00 AM CDT Start Date: 08/25/24 Stop Date: 10/26/24 Status: Discontinued amLODIPine 5 mg oral tablet 1 tab(s), Oral, Daily, # 90 tab(s), 1 Refill(s), Start Date: 03/09/23 10:48:00 AM CDT, Pharmacy: [facility], 173, cm, 03/09/23 10:20:00 CDT, Height/Length Measured, 89.5, kg, 03/09/23 10:22:00 CDT, Weight Dosing Start Date: 03/09/23 Stop Date: 08/27/23 Status: Completed amLODIPine 5 mg oral tablet 1 tab(s), Oral, Daily, # 90 tab(s), 3 Refill(s), Start Date: 08/27/23 8:41:00 AM CDT, Pharmacy: [facility], 173, cm, 04/09/23 15:48:00 CDT, Height/Length [...] Start Date: 07/26/24 3:47:00 PM CDT, Pharmacy: [facility] #[id number], 173, cm, 07/26/24 15:14:00 CDT, Height/Length Measured, 88, kg, 07/26/24 15:24:00 CDT, Weight Dosing Start Date: 07/26/24 Status: Ordered atorvastatin 20 mg oral tablet 1 tab(s), Oral, Daily, # 30 tab(s), 0 Refill(s), Start Date: 03/31/24 10:45:00 AM CDT Start Date: 03/31/24 Stop Date: 06/21/24 Status: Completed atorvastatin 20 mg oral tablet 1 tab(s), Oral, Daily, # 90 tab(s), 3 Refill(s), Start Date: 10/26/24 3:34:00 PM DIRECTOR OF SCIENCE, Pharmacy: [id number], 173, cm, 09/13/24 8:29:00 CDT, Height/Length Measured, 85, kg, 09/13/24 8:32:00 CDT, Weight Dosing Start Date: 10/26/24 Status: Ordered atorvastatin 20 mg oral tablet 1 tab(s), Oral, Daily, # 90 tab(s), 3 Refill(s), Start Date: 07/07/24 11:58:00 AM CDT, Pharmacy: [facility] #[id number], 173, cm, 07/07/24 9:24:00 CDT, Height/Length Measured, 88.2, kg, 07/07/24 9:25:00 CDT, Weight Dosing Start Date: 07/07/24 Stop Date: 10/26/24 Status: Completed baclofen 10 mg oral tablet 1 tab(s), Oral, TID, # 30 tab(s), 0 Refill(s), Start Date: 03/09/23 10:49:00 AM CDT, Pharmacy: [facility], 173, cm, 03/09/23 10:20:00 CDT, Height/Length Measured, 89.5, kg, 03/09/23 10:22:00 CDT,Weight Dosing Start Date: 03/09/23 Stop Date: 04/22/23 Status: Completed baclofen 10 mg oral tablet 1 tab(s), Oral, TID, # 30 tab(s), 1 Refill(s), Start Date: 04/22/23 11:37:00 AM CDT, Pharmacy: [facility], 173, cm, 04/09/23 15:48:00 CDT, Height/Length Measured, 87.6, kg, 04/09/23 15:50:00 CDT, Weight Dosing Start Date: 04/22/23 Stop Date: 03/31/24 Status: Completed baclofen 10 mg oral tablet 0 Refill(s), Start Date: 11/18/22 1:27:00 PM DIRECTOR OF SCIENCE Start Date: 11/18/22 Stop Date: 03/09/23 Status: Discontinued baclofen 10 mg oral tablet 1 tab(s), Oral, TID, PRN PRN for pain, 0 Refill(s), Start Date: 05/15/18 11:15:00 PM CDT Start Date: 05/15/18 Stop Date: 06/16/19 Status: Completed baclofen 10 mg tablet baclofen 10 mg tablet, 1 tab(s), Oral, TID, # 30 tab(s), 2 Refill(s), Pharmacy: [facility], 173, cm, 04/09/23 15:48:00 CDT, Height/Length Measured, 87.6, kg, 04/09/23 15:50:00 CDT, Weight Dosing Start Date: 06/08/23 Stop Date: 03/31/24 Status: Completed baclofen 10 mg tablet baclofen 10 mg tablet, 1 tab(s), Oral, TID, # 30 tab(s), 2 Refill(s), Pharmacy: [facility], 173, cm, 04/09/23 15:48:00 CDT, Height/Length Measured, 87.6, kg, 04/09/23 15:50:00 CDT, Weight Dosing Start Date: 06/18/23 Stop Date: 03/31/24 Status: Completed carisoprodol 250 mg oral tablet 1 tab(s), Oral, BID, # 60 tab(s), 5 Refill(s), Start Date: 07/26/24 3:47:00 PM CDT, [id number], 173, cm, 07/26/24 15:14:00 CDT, Height/Length Measured, [...] 0 Refill(s), Start Date: 11/09/18 6:34:00 PM DIRECTOR OF SCIENCE, Pharmacy: [facility] Start Date: 11/09/18 Stop Date: 12/16/18 Status: Completed ciprofloxacin 750 mg oral tablet 1 tab(s), Oral, q12hr, 2h away from dairy, X 14 days, # 28 tab(s), 2 Refill(s), Start Date: :21:00 PM DIRECTOR OF SCIENCE, Pharmacy: [facility] Start Date: 09/19/18 Stop Date: 11/09/18 [...] 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 daily 3 months 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, # 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, 0 Refill(s), 03/16/19 6:45:00 [...] 3 Refill(s), Start Date: 12/20/18 1:37:00 PM DIRECTOR OF SCIENCE, Pharmacy: [facility] Start Date: 12/20/18 Stop Date: [...] Start Date: 04/03/24 11:55:00 AM CDT, Pharmacy: [facility], 173, cm, 03/31/24 10:46:00 CDT, Height/Length [...] Start Date: 04/19/24 10:19:00 AM CDT, Pharmacy: [facility] #[id number], 173, cm, 03/31/24 10:46:00 CDT, Height/Length Measured, 88.2, kg, 03/31/24 10:51:00 CDT, Weight Dosing Start Date: 04/19/24 Stop Date: 06/21/24 Status: Completed gabapentin 300 mg oral capsule 1 cap(s), Oral, TID, # 90 cap(s), 11 Refill(s), Start Date: 07/07/24 10:05:00 AM CDT, Pharmacy: [facility] #[id number], 173, cm, 07/07/24 9:24:00 CDT, Height/Length Measured, 88.2, kg, 07/07/24 9:25:00 CDT, Weight Dosing Start Date: 07/07/24 Stop Date: 07/11/24 Status: Discontinued hydrocodone-acetaminophen 5 mg-325 mg oral tablet See Instructions, 1/2 to 1 tab(s) Oral TID, # 60 tab(s), 0 Refill(s), Start Date: 07/11/24 2:53:00 PM CDT, Pharmacy: [facility] #[id number], 173, cm, 07/07/24 9:24:00 CDT, Height/Length Measured,88.2, kg, 07/07/24 9:25:00 CDT, Weight Dosing Start Date: 07/11/24 Stop Date: 07/26/24 Status: Discontinued ibuprofen 600 mg oral tablet 1 tab(s), Oral, QID, PRN PRN for pain, with food or milk, # 30 tab(s), 0 Refill(s), Start Date: 03/03/23 1:53:00 PM CDT, Pharmacy: [facility], 173, cm, 11/18/22 13:25:00 DIRECTOR OF SCIENCE, Height/Length Measured, 89.5, kg, 03/03/23 12:25:00 CDT, [...] Start Date: 07/07/24 10:05:00 AM CDT, Pharmacy: [facility] #[id number], 173, cm, 07/07/24 9:24:00 CDT, Height/Length Measured, [...] Start Date: 03/31/24 11:26:00 AM CDT, Pharmacy: [facility], 173, cm, 03/31/24 10:46:00 CDT, Height/Length Measured, 88.2, kg, 03/31/24 10:51:00 CDT, Weight Dosing Start Date: 03/31/24 Stop Date: 04/11/24 Status: Completed levoFLOXacin 500 mg oral tablet 1 tab(s), Oral, Daily, For chronic recurrent sinusitis, X 10 days, # 10 tab(s), 0 Refill(s), Start Date: 04/11/24 3:29:00 PM CDT, Pharmacy: [facility], 173, cm, 03/31/24 10:46:00 CDT, Height/Length Measured, 88.2, kg, 03/31/24 10:51:00 CDT, Weight Dosing Start Date: 04/11/24 Stop Date: 04/19/24 Status: Completed levoFLOXacin 500 mg oral tablet 1 tab(s), Oral, Daily, For chronic recurrent sinusitis, # 10 tab(s), 0 Refill(s), Start Date: 04/19/24 10:19:00 AM CDT, Pharmacy: [facility] #[id number], 173, cm, 03/31/24 10:46:00 CDT, Height/Length Measured, 88.2, kg, 03/31/24 10:51:00 CDT, Weight Dosing Start Date: 04/19/24 Stop Date: 06/06/24 Status: Completed linezolid 600 mg oral tablet 1 tab(s), Oral, q12hr, generic please, # 28 tab(s), 0 Refill(s), Start Date: 11/16/18 11:41:00 AM DIRECTOR OF SCIENCE, Pharmacy: [facility] Start Date: 11/16/18 Stop Date: 12/02/18 Status: Completed Medrol 4 mg oral tablet 1 packet(s), Oral, ONETIME, as directed on package labeling, # 21 tab(s), 0 Refill(s), Start Date: 11/18/22 1:39:00 PM DIRECTOR OF SCIENCE, Pharmacy: [facility], 173, cm, 11/18/22 13:25:00 DIRECTOR OF SCIENCE, Height/Length Measured, 86.3, kg, 11/18/22 13:27:00 DIRECTOR OF SCIENCE, Weight Dosing Start Date: 11/18/22 Stop Date: 03/09/23 Status: Completed metFORMIN 500 mg oral tablet 0.5 tab(s), Oral, BID, # 30 tab(s), 11 Refill(s), Start Date: 04/03/24 11:56:00 AM CDT, Pharmacy: [facility], 173, cm, 03/31/24 10:46:00 CDT, Height/Length Measured, 88.2, kg, 03/31/24 10:51:00 CDT, Weight Dosing Start Date: 04/03/24 Stop Date: 04/19/24 Status: Completed metFORMIN 500 mg oral tablet 0.5 tab(s), Oral, BID, # 30 tab(s), 11 Refill(s), Start Date: 04/19/24 10:19:00 AM CDT, Pharmacy: [facility] #[id number], 173, cm, 03/31/24 10:46:00 CDT, Height/Length Measured, 88.2, kg, 03/31/2410:51:00 CDT, Weight Dosing Start Date: 04/19/24 Stop Date: 06/21/24 Status: Completed metFORMIN 500 mg oral tablet 1 tab(s), Oral, BID, # 180 tab(s), 3 Refill(s), Start Date: 07/07/24 11:58:00 AM CDT, Pharmacy: [facility] #[id number], 173, cm, 07/07/24 9:24:00 CDT, Height/Length Measured, 88.2, kg, 07/07/24 9:25:00 CDT, Weight Dosing Start Date: 07/07/24 Status: Ordered MiraLax oral powder for reconstitution 17 gm, Oral, Daily, Dissolve in water before taking, # 255 gm, 0 Refill(s), Start Date: 05/21/18 10:05:00 AM CDT, Pharmacy: [facility] [id number] Start Date: 05/21/18 Stop Date: 03/31/24 Status: Completed MS Contin 15 mg oral tablet, extended release 2 tab(s), Oral, q12hr, # 28 tab(s), 0 Refill(s), Start Date: 05/21/18 10:04:00 AM CDT, [id number] Start Date: 05/21/18 Stop Date: 09/09/18 Status: Completed MS Contin 30 mg oral tablet, extended release 1 tab(s), Oral, q12hr interval, 0 Refill(s), Start Date: 09/12/18 9:49:00 AM CDT Start Date: 09/12/18 Stop Date: 06/16/19 Status: Completed Multi-Day Plus Minerals oral tablet 1 tab(s), Oral, Daily, # 30 tab(s), 0 Refill(s), Start Date: 09/30/22 3:49:00 PM DIRECTOR OF SCIENCE Start Date: 09/30/22 Stop Date: 06/21/24 Status: Completed Narcan 4 mg/0.1 mL nasal spray 1 spray(s), Nasal, ONETIME, # 2 EA, 11 Refill(s), Start Date: 07/07/24 10:15:00 AM CDT, [facility]: [facility][id number], 173, cm, 07/07/24 9:24:00 CDT, Height/Length Measured, 88.2, kg, :25:00 CDT, Weight Dosing Start Date: 07/07/24 Stop Date: 07/26/24 Status: Discontinued Narcan 4 mg/0.1 mL nasal spray 1 spray(s), Nasal, ONETIME, # 2 EA, 0 Refill(s), Start Date: 08/25/24 3:51:00 PM CDT, Pharmacy: [facility], 173, cm, 07/26/24 15:14:00 CDT, Height/Length Measured, 88, kg, 08/17/24 7:54:00 CDT, Weight Dosing Start Date: 08/25/24 Status: Ordered oxycodone-acetaminophen 10 mg-325 mg oral tablet 0 Refill(s), Start Date: 11/18/22 1:27:00 PM DIRECTOR OF SCIENCE Start Date: 11/18/22 Stop Date: 04/09/23 Status: [...] disc disease, osteoarthritis and chronic intractable pain.,# 90 tab(s), 0 Refill(s), Start Date: 10/26/24 4:30:00 PM DIRECTOR OF SCIENCE, Pharmacy: [facility], 173,cm, 09/13/24 8:29:00 CDT, Height/Length Measured, 85, kg, 09/13/24 8:32:00 CDT, Weight Dosing Start Date: 10/26/24 Status: Ordered oxycodone-acetaminophen 5 mg-325 mg oral tablet 1 tab(s), Oral, TID, PRN PRN pain severe 8-10, # 90 tab(s), 0 Refill(s), Start Date: 09/06/24 2:38:00 PM CDT, Pharmacy: [facility], 173, cm, 09/06/24 [...] Start Date: 09/13/24 12:13:00 PM CDT, Pharmacy: [facility], 173, cm, 09/13/24 8:29:00 CDT, Height/Length Measured, 85, kg, 09/13/24 8:32:00 CDT, Weight Dosing Start Date: 09/13/24 Stop Date: 10/26/24 Status: Completed oxycodone-acetaminophen 5 mg-325 mg oral tablet 1 tab(s), Oral, TID, PRN PRN pain moderate 4-7, # 42 tab(s), 0 Refill(s), Start Date: 07/07/24 10:05:00 AM CDT, Pharmacy: [id number], 173, cm, 07/07/24 9:24:00 CDT, Height/Length Measured, 88.2, kg, 07/07/24 9:25:00 CDT, Weight Dosing Start Date: 07/07/24 Stop Date: 07/11/24 Status: Discontinued oxycodone-acetaminophen 5 mg-325 mg oral tablet 1 tab(s), Oral, TID, PRN PRN pain severe 8-10, # 90 tab(s), 0 Refill(s), Start Date: 08/25/24 10:49:00 AM CDT, Pharmacy: [facility], 173, cm, 07/26/24 [...] Start Date: 05/17/18 4:24:00 PM CDT, [id number] Start Date: 05/17/18 Stop Date: 09/09/18 Status: Completed Percocet 5/325 oral tablet See Instructions, PRN PRN for pain, 1 tab(s) Oral q6hr not to exceed 4000 mg acetaminophen per day,# 60 tab(s), 0 Refill(s), Start Date: 09/14/18 9:23:00 AM CDT, Pharmacy: [facility] Start Date: 09/14/18 Stop Date: 06/16/19 Status: Completed predniSONE 10 mg oral tablet 3 tab(s), Oral, BID, For inflammation and pain, # 84 tab(s), 0 Refill(s), Start Date: 08/10/24 9:14:00 AM CDT, Pharmacy: [facility], 173, cm, 07/26/24 15:14:00 CDT, Height/Length Measured, 88, kg, 07/26/24 15:24:00 CDT, Weight Dosing Start Date: 08/10/24 Stop Date: 08/25/24 Status: Discontinued predniSONE 10 mg oral tablet 3 tab(s), Oral, BID, For inflammation and pain, # 84 tab(s), 0 Refill(s), Start Date: 07/26/24 3:47:00 PM CDT, [id number], 173, cm, 07/26/24 15:14:00 CDT, Height/Length Measured, [...] Start Date: 05/21/18 10:05:00 AM CDT, Pharmacy: [facility] [id number] Start Date: 05/21/18 Stop Date: 05/31/18 Status: Completed tamsulosin 0.4 mg oral capsule 1 cap(s), Oral, Daily, # 90 cap(s), 3 Refill(s), Start Date: 12/20/18 1:38:00 PM DIRECTOR OF SCIENCE, Pharmacy: [facility] Start Date: 12/20/18 Stop Date: 09/30/22 Status: Completed tamsulosin 0.4 mg oral capsule 1 cap(s), Oral, Daily, 0 Refill(s), Start Date: 09/09/18 7:57:00 AM CDT Start Date: 09/09/18 Stop Date: 12/20/18 Status: Discontinued traMADol 50 mg oral tablet 1 tab(s), Oral, q4hr interval, PRN PRN as needed for pain, # 12 tab(s), 0 Refill(s), Start Date: 03/03/23 1:54:00 PM CDT, Pharmacy: [facility], 173, cm, 11/18/22 13:25:00 DIRECTOR OF SCIENCE, Height/Length Measured, 89.5, kg, 03/03/23 12:25:00 CDT, Weight Dosing Start Date: 03/03/23 Stop Date: 03/31/24 Status: Completed vancomycin 1 g intravenous injection IV, q12hr interval, prescribed by Dr Perdue, 0 Refill(s), Start Date: 10/21/18 8:45:00 AM DIRECTOR OF SCIENCE Start Date: 10/21/18 Stop Date: 11/16/18 Status: Completed Zinc 140 mg (as elemental zinc 50 mg) oral tablet 1 tab(s), Oral, Daily, # 90 tab(s), 0 Refill(s), Start Date: 09/30/22 3:48:00 PM DIRECTOR OF SCIENCE Start Date: 09/30/22 Stop Date: 06/21/24 Status: [...] Elbow surgery from elbow to forearm 14left [id number] procedure 16left 17LT Rotator Cuff Repair 18right 19RT Tendon Repair 20right side 21RT Wrist Surgery- Frzn wrist- 2 screws Social History Social History Type Response Sex Male Patient Care team information Personnel Name: Carlos Enrique Obando MD Address: Address: [address] [place] [address]
--- OUTSIDE RECORDS SUMMARY | 2024-11-23 00:08 | XMS_ITS | Continuity of Care Document ---
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 Mechanic Name Role Phone Carlos Enrique Obando Primary Care Physician Encounter Date(s): 04/06/24 - 04/06/24 Family Medicine [facility] [address] [place] [address]- Discharge Disposition: Discharged to Home or Self [...] Start Date: 04/22/23 10:25:00 AM CDT, Pharmacy: [facility], 173, cm, 04/09/23 15:48:00 CDT, Height/Length [...] Start Date: 03/09/23 10:48:00 AM CDT, Pharmacy: [facility], 173, cm, 03/09/23 10:20:00 CDT, Height/Length Measured, 89.5, kg, 03/09/23 10:22:00 CDT, Weight Dosing Start Date: 03/09/23 Stop Date: 08/27/23 Status: Completed amLODIPine 5 mg oral tablet 1 tab(s), Oral, Daily, # 90 tab(s), 3 Refill(s), Start Date: 08/27/23 8:41:00 AM CDT, Pharmacy: [facility], 173, cm, 04/09/23 15:48:00 CDT, Height/Length [...] Start Date: 03/09/23 10:49:00 AM CDT, Pharmacy: [facility], 173, cm, 03/09/23 10:20:00 CDT, Height/Length Measured, 89.5, kg, 03/09/23 10:22:00 CDT,Weight Dosing Start Date: 03/09/23 Stop Date: 04/22/23 Status: Completed baclofen 10 mg oral tablet 1 tab(s), Oral, TID, # 30 tab(s), 1 Refill(s), Start Date: 04/22/23 11:37:00 AM CDT, [facility], cm, 04/09/23 15:48:00 CDT, Height/Length Measured, 87.6, kg, 04/09/23 15:50:00 CDT, Weight Dosing Start Date: 04/22/23 Stop Date: 03/31/24 Status: Completed baclofen 10 mg oral tablet 0 Refill(s), Start Date: 11/18/22 1:27:00 PM INSULATION INSPECTOR Start Date: 11/18/22 Stop Date: 03/09/23 Status: Discontinued baclofen 10 mg oral tablet 1 tab(s), Oral, TID, PRN PRN for pain, 0 Refill(s), Start Date: 05/15/18 11:15:00 PM CDT Start Date: 05/15/18 Stop Date: 06/16/19 Status: Completed baclofen 10 mg tablet baclofen 10 mg tablet, 1 tab(s), Oral, TID, # 30 tab(s), 2 Refill(s), Pharmacy: [facility], 173, cm, 04/09/23 15:48:00 CDT, Height/Length Measured, 87.6, kg, 04/09/23 15:50:00 CDT, Weight Dosing Start Date: 06/08/23 Stop Date: 03/31/24 Status: Completed baclofen 10 mg tablet baclofen 10 mg tablet, 1 tab(s), Oral, TID, # 30 tab(s), 2 Refill(s), Pharmacy: [facility], 173, cm, 04/09/23 15:48:00 CDT, Height/Length [...] 0 Refill(s), Start Date: 11/09/18 6:34:00 PM INSULATION INSPECTOR, Pharmacy: [facility] Start Date: 11/09/18 Stop Date: 12/16/18 Status: Completed ciprofloxacin 750 mg oral tablet 1 tab(s), Oral, q12hr, 2h away from dairy, X 14 days, # 28 tab(s), 2 Refill(s), Start Date: :21:00 PM INSULATION INSPECTOR, Pharmacy: [facility] Start Date: 09/19/18 Stop Date: 11/09/18 [...] 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 daily 3 months 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 Start Date: 12/20/18 Stop Date: 09/30/22 Status: Completed finasteride 5 mg oral tablet 1 tab(s), Oral, Daily, # 30 tab(s), 0 Refill(s), Start Date: 03/31/24 10:43:00 AM CDT Start Date: 03/31/24 Status: Ordered fluticasone 50 mcg/inh nasal spray 2 spray(s), Nasal, BID, # 16 gm, 11 Refill(s), Start Date: 04/03/24 11:55:00 AM CDT, Pharmacy: [facility], 173, cm, 03/31/24 10:46:00 CDT, Height/Length Measured, 88.2, kg, 03/31/24 10:51:00 CDT,Weight Dosing Start Date: 04/03/24 Stop Date: 08/20/25 Status: Ordered fluticasone 50 mcg/inh nasal spray 1 spray(s), Nasal, Daily, # 16 gm, 0 Refill(s), Start Date: 04/03/24 11:51:00 AM CDT Start Date: 04/03/24 Stop Date: 04/03/24 Status: Discontinued ibuprofen 600 mg oral tablet 1 tab(s), Oral, QID, PRN PRN for pain, with food or milk, # 30 tab(s), 0 Refill(s), Start Date: 03/03/23 1:53:00 PM CDT, Pharmacy: [facility], 173, cm, 11/18/22 13:25:00 INSULATION INSPECTOR, Height/Length Measured, 89.5, kg, 03/03/23 12:25:00 CDT, [...] Start Date: 03/31/24 11:26:00 AM CDT, Pharmacy: [facility], 173, cm, 03/31/24 10:46:00 CDT, Height/Length Measured, 88.2, kg, 03/31/24 10:51:00 CDT, Weight Dosing Start Date: 03/31/24 Stop Date: 04/10/24 Status: Ordered linezolid 600 mg oral tablet 1 tab(s), Oral, q12hr, generic please, # 28 tab(s), 0 Refill(s), Start Date: 11/16/18 11:41:00 AM INSULATION INSPECTOR, Pharmacy: [facility] Start Date: 11/16/18 Stop Date: 12/02/18 Status: Completed Medrol 4 mg oral tablet 1 packet(s), Oral, ONETIME, as directed on package labeling, # 21 tab(s), 0 Refill(s), Start Date: 11/18/22 1:39:00 PM INSULATION INSPECTOR, Pharmacy: [facility], 173, cm, 11/18/22 13:25:00 INSULATION INSPECTOR, Height/Length Measured, 86.3, kg, 11/18/22 13:27:00 INSULATION INSPECTOR, Weight Dosing Start Date: 11/18/22 Stop Date: 03/09/23 Status: Completed metFORMIN 500 mg oral tablet 0.5 tab(s), Oral, BID, # 30 tab(s), 11 Refill(s), Start Date: 04/03/24 11:56:00 AM CDT, Pharmacy: [facility], 173, cm, 03/31/24 10:46:00 CDT, Height/Length Measured, 88.2, kg, 03/31/24 10:51:00 CDT, Weight Dosing Start Date: 04/03/24 Status: Ordered MiraLax oral powder for reconstitution 17 gm, Oral, Daily, Dissolve in water before taking, # 255 gm, 0 Refill(s), Start Date: 05/21/18 10:05:00 AM CDT, Pharmacy: [facility] [id number] Start Date: 05/21/18 Stop Date: 03/31/24 Status: Completed MS Contin 15 mg oral tablet, extended release 2 tab(s), Oral, q12hr, # 28 tab(s), 0 Refill(s), Start Date: 05/21/18 10:04:00 AM CDT, Pharmacy: [facility] [id number] Start Date: 05/21/18 Stop Date: 09/09/18 Status: Completed MS Contin 30 mg oral tablet, extended release 1 tab(s), Oral, q12hr interval, 0 Refill(s), Start Date: 09/12/18 9:49:00 AM CDT Start Date: 09/12/18 Stop Date: 06/16/19 Status: Completed Multi-Day Plus Minerals oral tablet 1 tab(s), Oral, Daily, # 30 tab(s), 0 Refill(s), Start Date: 09/30/22 3:49:00 PM INSULATION INSPECTOR Start Date: 09/30/22 Status: Ordered oxycodone-acetaminophen 10 mg-325 mg oral tablet 0 Refill(s), Start Date: 11/18/22 1:27:00 PM INSULATION INSPECTOR Start Date: 11/18/22 Stop Date: 04/09/23 Status: [...] Start Date: 05/17/18 4:24:00 PM CDT, Pharmacy: [facility] [id number] Start Date: 05/17/18 Stop Date: 09/09/18 Status: Completed Percocet 5/325 oral tablet See Instructions, PRN PRN for pain, 1 tab(s) Oral q6hr not to exceed 4000 mg acetaminophen per day,# 60 tab(s), 0 Refill(s), Start Date: 09/14/18 9:23:00 AM CDT, Pharmacy: [facility] Start Date: 09/14/18 Stop Date: 06/16/19 Status: Completed pregabalin 75 mg oral capsule 1 cap(s), Oral, BID, 0 Refill(s), Start Date: 03/31/24 10:44:00 AM CDT Start Date: 03/31/24 Status: Ordered Senokot S 50 mg-8.6 mg oral tablet 1 tab(s), Oral, BID, X 10 days, # 20 tab(s), 0 Refill(s), Start Date: 05/21/18 10:05:00 AM CDT, Pharmacy: [facility] [id number] Start Date: 05/21/18 Stop Date: 05/31/18 Status: Completed tamsulosin 0.4 mg oral capsule 1 cap(s), Oral, Daily, # 90 cap(s), 3 Refill(s), Start Date: 12/20/18 1:38:00 PM INSULATION INSPECTOR, Pharmacy: [facility] Start Date: 12/20/18 Stop Date: 09/30/22 Status: Completed tamsulosin 0.4 mg oral capsule 1 cap(s), Oral, Daily, 0 Refill(s), Start Date: 09/09/18 7:57:00 AM CDT Start Date: 09/09/18 Stop Date: 12/20/18 Status: Discontinued traMADol 50 mg oral tablet 1 tab(s), Oral, q4hr interval, PRN PRN as needed for pain, # 12 tab(s), 0 Refill(s), Start Date: 03/03/23 1:54:00 PM CDT, Pharmacy: [facility], 173, cm, 11/18/22 13:25:00 INSULATION INSPECTOR, Height/Length Measured, 89.5, kg, 03/03/23 12:25:00 CDT, Weight Dosing Start Date: 03/03/23 Stop Date: 03/31/24 Status: Completed vancomycin 1 g intravenous injection IV, q12hr interval, prescribed by Dr Perdue, 0 Refill(s), Start Date: 10/21/18 8:45:00 AM INSULATION INSPECTOR Start Date: 10/21/18 Stop Date: 11/16/18 Status: Completed Zinc 140 mg (as elemental zinc 50 mg) oral tablet 1 tab(s), Oral, Daily, # 90 tab(s), 0 Refill(s), Start Date: 09/30/22 3:48:00 PM INSULATION INSPECTOR Start Date: 09/30/22 Status: Ordered Problem List [...] Name: Carlos Enrique Obando MD Address: Address: [address] [place] [phone] [place]
--- OUTSIDE RECORDS SUMMARY | 2024-11-23 00:08 | XMS_ITS | Continuity of Care Document ---
Author Organization [facility] Address [address] [facility] [address] [place] [address] Care Team Providers Care Medical Instrument Cable Fabricator Name Role Phone Carlos Enrique Obando Primary Care Physician [phone] Encounter Date(s): 07/10/24 - 07/10/24 [facility] [address] [place] [address]- Discharge Disposition: Discharged to Home or Self Care Allergies, Adverse Reactions, Alerts Substance Criticality Severity Reaction Reaction Severity Status Lyrica Lethargy Confusion Active Immunizations Given and [...] Start Date: 04/22/23 10:25:00 AM CDT, Pharmacy: [facility], 173, cm, 04/09/23 15:48:00 CDT, Height/Length [...] Start Date: 03/09/23 10:48:00 AM CDT, Pharmacy: [facility], 173, cm, 03/09/23 10:20:00 CDT, Height/Length Measured, 89.5, kg, 03/09/23 10:22:00 CDT, Weight Dosing Start Date: 03/09/23 Stop Date: 08/27/23 Status: Completed amLODIPine 5 mg oral tablet 1 tab(s), Oral, Daily, # 90 tab(s), 3 Refill(s), Start Date: 08/27/23 8:41:00 AM CDT, Pharmacy: [facility], 173, cm, 04/09/23 15:48:00 CDT, Height/Length [...] Start Date: 07/07/24 11:58:00 AM CDT, Pharmacy: [facility] #[id number], 173, cm, 07/07/24 9:24:00 CDT, Height/Length Measured, 88.2, kg, 07/07/24 9:25:00 CDT, Weight Dosing Start Date: 07/07/24 Status: Ordered baclofen 10 mg oral tablet 1 tab(s), Oral, TID, # 30 tab(s), 0 Refill(s), Start Date: 03/09/23 10:49:00 AM CDT, Pharmacy: [facility], 173, cm, 03/09/23 10:20:00 CDT, Height/Length Measured, 89.5, kg, 03/09/23 10:22:00 CDT,Weight Dosing Start Date: 03/09/23 Stop Date: 04/22/23 Status: Completed baclofen 10 mg oral tablet 1 tab(s), Oral, TID, # 30 tab(s), 1 Refill(s), Start Date: 04/22/23 11:37:00 AM CDT, Pharmacy: [facility], 173, cm, 04/09/23 15:48:00 CDT, Height/Length Measured, 87.6, kg, 04/09/23 15:50:00 CDT, Weight Dosing Start Date: 04/22/23 Stop Date: 03/31/24 Status: Completed baclofen 10 mg oral tablet 0 Refill(s), Start Date: 11/18/22 1:27:00 PM MOCK UP ASSEMBLER Start Date: 11/18/22 Stop Date: 03/09/23 Status: Discontinued baclofen 10 mg oral tablet 1 tab(s), Oral, TID, PRN PRN for pain, 0 Refill(s), Start Date: 05/15/18 11:15:00 PM CDT Start Date: 05/15/18 Stop Date: 06/16/19 Status: Completed baclofen 10 mg tablet baclofen 10 mg tablet, 1 tab(s), Oral, TID, # 30 tab(s), 2 Refill(s), Pharmacy: [facility], 173, cm, 04/09/23 15:48:00 CDT, Height/Length Measured, 87.6, kg, 04/09/23 15:50:00 CDT, Weight Dosing Start Date: 06/08/23 Stop Date: 03/31/24 Status: Completed baclofen 10 mg tablet baclofen 10 mg tablet, 1 tab(s), Oral, TID, # 30 tab(s), 2 Refill(s), Pharmacy: [facility], 173, cm, 04/09/23 15:48:00 CDT, Height/Length [...] 0 Refill(s), Start Date: 11/09/18 6:34:00 PM MOCK UP ASSEMBLER, Pharmacy: [facility] Start Date: 11/09/18 Stop Date: 12/16/18 Status: Completed ciprofloxacin 750 mg oral tablet 1 tab(s), Oral, q12hr, 2h away from dairy, X 14 days, # 28 tab(s), 2 Refill(s), Start Date: 11/5/182:21:00 PM MOCK UP ASSEMBLER, Pharmacy: [facility] Start Date: 09/19/18 Stop Date: 11/09/18 [...] 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 daily 3 months 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, # 1 boxes, 0 Refill(s), 03/16/19 6:45:00 [...] 3 Refill(s), Start Date: 12/20/18 1:37:00 PM MOCK UP ASSEMBLER, Pharmacy: [facility] Start Date: 12/20/18 Stop Date: 09/30/22 Status: Completed finasteride 5 mg oral tablet 1 tab(s), Oral, Daily, # 30 tab(s), 0 Refill(s), Start Date: 03/31/24 10:43:00 AM CDT Start Date: 03/31/24 Stop Date: 06/21/24 Status: Completed fluticasone 50 mcg/inh nasal spray 2 spray(s), Nasal, BID, X 42 days, # 16 gm, 11 Refill(s), Start Date: 04/03/24 11:55:00 AM CDT, Pharmacy: [facility], 173, cm, 03/31/24 10:46:00 CDT, Height/Length [...] Start Date: 04/19/24 10:19:00 AM CDT, Pharmacy: [facility] #[id number], 173, cm, 03/31/24 10:46:00 CDT, Height/Length Measured, 88.2, kg, 03/31/24 10:51:00 CDT, Weight Dosing Start Date: 04/19/24 Stop Date: 06/21/24 Status: Completed gabapentin 300 mg oral capsule 1 cap(s), Oral, TID, # 90 cap(s), 11 Refill(s), Start Date: 07/07/24 10:05:00 AM CDT, Pharmacy: [facility] #[id number], 173, cm, 07/07/24 9:24:00 CDT, Height/Length Measured, 88.2, kg, 07/07/24 9:25:00 CDT, Weight Dosing Start Date: 07/07/24 Status: Ordered ibuprofen 600 mg oral tablet 1 tab(s), Oral, QID, PRN PRN for pain, with food or milk, # 30 tab(s), 0 Refill(s), Start Date: 03/03/23 1:53:00 PM CDT, Pharmacy: [facility], 173, cm, 11/18/22 13:25:00 MOCK UP ASSEMBLER, Height/Length Measured, 89.5, kg, 03/03/23 12:25:00 CDT, [...] CDT, Pharmacy: [facility] #[id number], 173, cm, 07/07/24 9:24:00 CDT, Height/Length Measured, [...] Start Date: 03/31/24 11:26:00 AM CDT, Pharmacy: [facility], 173, cm, 03/31/24 10:46:00 CDT, Height/Length Measured, 88.2, kg, 03/31/24 10:51:00 CDT, Weight Dosing Start Date: 03/31/24 Stop Date: 04/11/24 Status: Completed levoFLOXacin 500 mg oral tablet 1 tab(s), Oral, Daily, For chronic recurrent sinusitis, X 10 days, # 10 tab(s), 0 Refill(s), Start Date: 04/11/24 3:29:00 PM CDT, Pharmacy: [facility], 173, cm, 03/31/24 10:46:00 CDT, Height/Length Measured, 88.2, kg, 03/31/24 10:51:00 CDT, Weight Dosing Start Date: 04/11/24 Stop Date: 04/19/24 Status: Completed levoFLOXacin 500 mg oral tablet 1 tab(s), Oral, Daily, For chronic recurrent sinusitis, # 10 tab(s), 0 Refill(s), Start Date: 04/19/24 10:19:00 AM CDT, Pharmacy: [facility] #[id number], 173, cm, 03/31/24 10:46:00 CDT, Height/Length Measured, 88.2, kg, 03/31/24 10:51:00 CDT, Weight Dosing Start Date: 04/19/24 Stop Date: 06/06/24 Status: Completed linezolid 600 mg oral tablet 1 tab(s), Oral, q12hr, generic please, # 28 tab(s), 0 Refill(s), Start Date: 11/16/18 11:41:00 AM MOCK UP ASSEMBLER, Pharmacy: [facility] Start Date: 11/16/18 Stop Date: 12/02/18 Status: Completed Medrol 4 mg oral tablet 1 packet(s), Oral, ONETIME, as directed on package labeling, # 21 tab(s), 0 Refill(s), Start Date: 11/18/22 1:39:00 PM MOCK UP ASSEMBLER, Pharmacy: [facility], 173, cm, 11/18/22 13:25:00 MOCK UP ASSEMBLER, Height/Length Measured, 86.3, kg, 11/18/22 13:27:00 MOCK UP ASSEMBLER, Weight Dosing Start Date: 11/18/22 Stop Date: 03/09/23 Status: Completed metFORMIN 500 mg oral tablet 0.5 tab(s), Oral, BID, # 30 tab(s), 11 Refill(s), Start Date: 04/03/24 11:56:00 AM CDT, Pharmacy: [facility], 173, cm, 03/31/24 10:46:00 CDT, Height/Length Measured, 88.2, kg, 03/31/24 10:51:00 CDT, Weight Dosing Start Date: 04/03/24 Stop Date: 04/19/24 Status: Completed metFORMIN 500 mg oral tablet 0.5 tab(s), Oral, BID, # 30 tab(s), 11 Refill(s), Start Date: 04/19/24 10:19:00 AM CDT, Pharmacy: [facility] #[id number], 173, cm, 03/31/24 10:46:00 CDT, Height/Length Measured, 88.2, kg, 03/31/2410:51:00 CDT, Weight Dosing Start Date: 04/19/24 Stop Date: 06/21/24 Status: Completed metFORMIN 500 mg oral tablet 1 tab(s), Oral, BID, # 180 tab(s), 3 Refill(s), Start Date: 07/07/24 11:58:00 AM CDT, Pharmacy: [facility] #[id number], 173, cm, 07/07/24 9:24:00 CDT, Height/Length Measured, 88.2, kg, 07/07/24 9:25:00 CDT, Weight Dosing Start Date: 07/07/24 Status: Ordered MiraLax oral powder for reconstitution 17 gm, Oral, Daily, Dissolve in water before taking, # 255 gm, 0 Refill(s), Start Date: 05/21/18 10:05:00 AM CDT, Pharmacy: [facility] [id number] Start Date: 05/21/18 Stop Date: 03/31/24 Status: Completed MS Contin 15 mg oral tablet, extended release 2 tab(s), Oral, q12hr, # 28 tab(s), 0 Refill(s), Start Date: 05/21/18 10:04:00 AM CDT, Pharmacy: [facility] [id number] Start Date: 05/21/18 Stop Date: 09/09/18 Status: Completed MS Contin 30 mg oral tablet, extended release 1 tab(s), Oral, q12hr interval, 0 Refill(s), Start Date: 09/12/18 9:49:00 AM CDT Start Date: 09/12/18 Stop Date: 06/16/19 Status: Completed Multi-Day Plus Minerals oral tablet 1 tab(s), Oral, Daily, # 30 tab(s), 0 Refill(s), Start Date: 09/30/22 3:49:00 PM MOCK UP ASSEMBLER Start Date: 09/30/22 Stop Date: 06/21/24 Status: Completed Narcan 4 mg/0.1 mL nasal spray 1 spray(s), Nasal, ONETIME, # 2 EA, 11 Refill(s), Start Date: 07/07/24 10:15:00 AM CDT, Pharmacy: [facility] #[id number], 173, cm, 07/07/24 9:24:00 CDT, Height/Length Measured, 88.2, kg, 249:25:00 CDT, Weight Dosing Start Date: 07/07/24 Status: Ordered oxycodone-acetaminophen 10 mg-325 mg oral tablet 0 Refill(s), Start Date: 11/18/22 1:27:00 PM MOCK UP ASSEMBLER Start Date: 11/18/22 Stop Date: 04/09/23 Status: [...] Start Date: 07/07/24 10:05:00 AM CDT, Pharmacy: [facility] #[id number], 173, cm, 07/07/24 9:24:00 CDT, Height/Length Measured, 88.2, kg, 07/07/24 9:25:00 CDT, Weight Dosing Start Date: 07/07/24 Status: Ordered Percocet 10/325 oral tablet 1 tab(s), Oral, q4hr interval, 0 Refill(s), Start Date: 05/15/18 10:18:00 PM CDT Start Date: 05/15/18 Stop Date: 05/17/18 Status: Discontinued Percocet 5/325 oral tablet 1 tab(s), Oral, q4hr, PRN PRN for pain, not to exceed 4000 mg acetaminophen per day, # 40 tab(s), 0Refill(s), Start Date: 05/17/18 4:24:00 PM CDT, Pharmacy: [facility] [id number] Start Date: 05/17/18 Stop Date: 09/09/18 Status: Completed Percocet 5/325 oral tablet See Instructions, PRN PRN for pain, 1 tab(s) Oral q6hr not to exceed 4000 mg acetaminophen per day,# 60 tab(s), 0 Refill(s), Start Date: 09/14/18 9:23:00 AM CDT, Pharmacy: [facility] Start Date: 09/14/18 Stop Date: 06/16/19 Status: Completed pregabalin 75 mg oral capsule 1 cap(s), Oral, BID, 0 Refill(s), Start Date: 03/31/24 10:44:00 AM CDT Start Date: 03/31/24 Stop Date: 07/07/24 Status: Discontinued Senokot S 50 mg-8.6 mg oral tablet 1 tab(s), Oral, BID, X 10 days, # 20 tab(s), 0 Refill(s), Start Date: 05/21/18 10:05:00 AM CDT, Pharmacy: [facility] [id number] Start Date: 05/21/18 Stop Date: 05/31/18 Status: Completed tamsulosin 0.4 mg oral capsule 1 cap(s), Oral, Daily, # 90 cap(s), 3 Refill(s), Start Date: 12/20/18 1:38:00 PM MOCK UP ASSEMBLER, Pharmacy: [facility] Start Date: 12/20/18 Stop Date: 09/30/22 Status: Completed tamsulosin 0.4 mg oral capsule 1 cap(s), Oral, Daily, 0 Refill(s), Start Date: 09/09/18 7:57:00 AM CDT Start Date: 09/09/18 Stop Date: 12/20/18 Status: Discontinued traMADol 50 mg oral tablet 1 tab(s), Oral, q4hr interval, PRN PRN as needed for pain, # 12 tab(s), 0 Refill(s), Start Date: 03/03/23 1:54:00 PM CDT, Pharmacy: [facility], 173, cm, 11/18/22 13:25:00 MOCK UP ASSEMBLER, Height/Length Measured, 89.5, kg, 03/03/23 12:25:00 CDT, Weight Dosing Start Date: 03/03/23 Stop Date: 03/31/24 Status: Completed vancomycin 1 g intravenous injection IV, q12hr interval, prescribed by Dr Perdue, 0 Refill(s), Start Date: 10/21/18 8:45:00 AM MOCK UP ASSEMBLER Start Date: 10/21/18 Stop Date: 11/16/18 Status: Completed Zinc 140 mg (as elemental zinc 50 mg) oral tablet 1 tab(s), Oral, Daily, # 90 tab(s), 0 Refill(s), Start Date: 09/30/22 3:48:00 PM MOCK UP ASSEMBLER Start Date: 09/30/22 Stop Date: 06/21/24 Status: [...] Elbow surgery from elbow to forearm 14left 45S3-C1 procedure 16left 17LT Rotator Cuff Repair 18right 19RT Tendon Repair 20right side 21RT Wrist Surgery- Frzn wrist- 2 screws Social History Social History Type Response Sex Male Patient Care team information Personnel Name: Carlos Enrique Obando MD Address: Address: [id number] [place] [address]
--- OUTSIDE RECORDS SUMMARY | 2024-11-23 00:08 | XMS_ITS | Continuity of Care Document ---
Author Organization [facility] Address [address] [facility] [address] [place] [address] Care Team Providers Care Sales Executive Name Role Phone Carlos Enrique Obando Primary Care Physician [phone] Encounter Date(s): 06/06/24 - 06/06/24 [facility] [address] [place] [address]- Discharge Disposition: Discharged to Home or Self Care Attending Physician: Garfield Florez MD Referring Physician: Garfield Florez MD Allergies, Adverse Reactions, Alerts No Known [...] Start Date: 04/22/23 10:25:00 AM CDT, Pharmacy: [facility], 173, cm, 04/09/23 15:48:00 CDT, Height/Length Measured, [...] Start Date: 03/09/23 10:48:00 AM CDT, Pharmacy: [facility], 173, cm, 03/09/23 10:20:00 CDT, Height/Length Measured, 89.5, kg, 03/09/23 10:22:00 CDT, Weight Dosing Start Date: 03/09/23 Stop Date: 08/27/23 Status: Completed amLODIPine 5 mg oral tablet 1 tab(s), Oral, Daily, # 90 tab(s), 3 Refill(s), Start Date: 08/27/23 8:41:00 AM CDT, Pharmacy: [facility], 173, cm, 04/09/23 15:48:00 CDT, Height/Length Measured, [...] Start Date: 03/09/23 10:49:00 AM CDT, [facility]acy: [facility], 173, cm, 03/09/23 10:20:00 CDT, Height/Length Measured, 89.5, kg, 03/09/23 10:22:00 CDT,Weight Dosing Start Date: 03/09/23 Stop Date: 04/22/23 Status: Completed baclofen 10 mg oral tablet 1 tab(s), Oral, TID, # 30 tab(s), 1 Refill(s), Start Date: 04/22/23 11:37:00 AM CDT, Pharmacy: [facility], 173, cm, 04/09/23 15:48:00 CDT, Height/Length Measured, 87.6, kg, 04/09/23 15:50:00 CDT, Weight Dosing Start Date: 04/22/23 Stop Date: 03/31/24 Status: Completed baclofen 10 mg oral tablet 0 Refill(s), Start Date: 11/18/22 1:27:00 PM FLORAL DECORATOR Start Date: 11/18/22 Stop Date: 03/09/23 Status: Discontinued baclofen 10 mg oral tablet 1 tab(s), Oral, TID, PRN PRN for pain, 0 Refill(s), Start Date: 05/15/18 11:15:00 PM CDT Start Date: 05/15/18 Stop Date: 06/16/19 Status: Completed baclofen 10 mg tablet baclofen 10 mg tablet, 1 tab(s), Oral, TID, # 30 tab(s), 2 Refill(s), Pharmacy: [facility], 173, cm, 04/09/23 15:48:00 CDT, Height/Length Measured, 87.6, kg, 04/09/23 15:50:00 CDT, Weight Dosing Start Date: 06/08/23 Stop Date: 03/31/24 Status: Completed baclofen 10 mg tablet baclofen 10 mg tablet, 1 tab(s), Oral, TID, # 30 tab(s), 2 Refill(s), Pharmacy: [facility], 173, cm, 04/09/23 15:48:00 CDT, Height/Length Measured, [...] 0 Refill(s), Start Date: 11/09/18 6:34:00 PM FLORAL DECORATOR, Pharmacy: [facility] Start Date: 11/09/18 Stop Date: 12/16/18 Status: Completed ciprofloxacin 750 mg oral tablet 1 tab(s), Oral, q12hr, 2h away from dairy, X 14 days, # 28 tab(s), 2 Refill(s), Start Date: :21:00 PM FLORAL DECORATOR, Pharmacy: [facility] Start Date: 09/19/18 Stop Date: 11/09/18 [...] 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 daily 3 months 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, # 1 boxes, 0 Refill(s), 03/16/19 6:45:00 [...] 3 Refill(s), Start Date: 12/20/18 1:37:00 PM FLORAL DECORATOR, Pharmacy: [facility] Start Date: 12/20/18 Stop Date: 09/30/22 Status: Completed finasteride 5 mg oral tablet 1 tab(s), Oral, Daily, # 30 tab(s), 0 Refill(s), Start Date: 03/31/24 10:43:00 AM CDT Start Date: 03/31/24 Status: Ordered fluticasone 50 mcg/inh nasal spray 2 spray(s), Nasal, BID, X 42 days, # 16 gm, 11 Refill(s), Start Date: 04/03/24 11:55:00 AM CDT, Pharmacy: [facility], 173, cm, 03/31/24 10:46:00 CDT, Height/Length Measured, [...] Start Date: 04/19/24 10:19:00 AM CDT, Pharmacy: [facility] #[id number], 173, cm, 03/31/24 10:46:00 CDT, Height/Length Measured, 88.2, kg, 03/31/24 10:51:00 CDT, Weight Dosing Start Date: 04/19/24 Stop Date: 09/05/25 Status: Ordered ibuprofen 600 mg oral tablet 1 tab(s), Oral, QID, PRN PRN for pain, with food or milk, # 30 tab(s), 0 Refill(s), Start Date: 03/03/23 1:53:00 PM CDT, Pharmacy: [facility], 173, cm, 11/18/22 13:25:00 FLORAL DECORATOR, Height/Length Measured, 89.5, kg, 03/03/23 12:25:00 CDT, [...] Start Date: 03/31/24 11:26:00 AM CDT, Pharmacy: [facility], 173, cm, 03/31/24 10:46:00 CDT, Height/Length Measured, 88.2, kg, 03/31/24 10:51:00 CDT, Weight Dosing Start Date: 03/31/24 Stop Date: 04/11/24 Status: Completed levoFLOXacin 500 mg oral tablet 1 tab(s), Oral, Daily, For chronic recurrent sinusitis, X 10 days, # 10 tab(s), 0 Refill(s), Start Date: 04/11/24 3:29:00 PM CDT, Pharmacy: [facility], 173, cm, 03/31/24 10:46:00 CDT, Height/Length Measured, 88.2, kg, 03/31/24 10:51:00 CDT, Weight Dosing Start Date: 04/11/24 Stop Date: 04/19/24 Status: Completed levoFLOXacin 500 mg oral tablet 1 tab(s), Oral, Daily, For chronic recurrent sinusitis, # 10 tab(s), 0 Refill(s), Start Date: 04/19/24 10:19:00 AM CDT, Pharmacy: [facility] #[id number], 173, cm, 03/31/24 10:46:00 CDT, Height/Length Measured, 88.2, kg, 03/31/24 10:51:00 CDT, Weight Dosing Start Date: 04/19/24 Stop Date: 06/06/24 Status: Completed linezolid 600 mg oral tablet 1 tab(s), Oral, q12hr, generic please, # 28 tab(s), 0 Refill(s), Start Date: 11/16/18 11:41:00 AM FLORAL DECORATOR, Pharmacy: [facility] Start Date: 11/16/18 Stop Date: 12/02/18 Status: Completed Medrol 4 mg oral tablet 1 packet(s), Oral, ONETIME, as directed on package labeling, # 21 tab(s), 0 Refill(s), Start Date: 11/18/22 1:39:00 PM FLORAL DECORATOR, Pharmacy: [facility], 173, cm, 11/18/22 13:25:00 FLORAL DECORATOR, Height/Length Measured, 86.3, kg, 11/18/22 13:27:00 FLORAL DECORATOR, Weight Dosing Start Date: 11/18/22 Stop Date: 03/09/23 Status: Completed metFORMIN 500 mg oral tablet 0.5 tab(s), Oral, BID, # 30 tab(s), 11 Refill(s), Start Date: 04/03/24 11:56:00 AM CDT, Pharmacy: [facility], 173, cm, 03/31/24 10:46:00 CDT, Height/Length Measured, 88.2, kg, 03/31/24 10:51:00 CDT, Weight Dosing Start Date: 04/03/24 Stop Date: 04/19/24 Status: Completed metFORMIN 500 mg oral tablet 0.5 tab(s), Oral, BID, # 30 tab(s), 11 Refill(s), Start Date: 04/19/24 10:19:00 AM CDT, Pharmacy: [facility] #[id number], 173, cm, 03/31/24 10:46:00 CDT, Height/Length Measured, 88.2, kg, 03/31/2410:51:00 CDT, Weight Dosing Start Date: 04/19/24 Status: Ordered MiraLax oral powder for reconstitution 17 gm, Oral, Daily, Dissolve in water before taking, # 255 gm, 0 Refill(s), Start Date: 05/21/18 10:05:00 AM CDT, Pharmacy: [facility] [id number] Start Date: 05/21/18 Stop Date: 03/31/24 Status: Completed MS Contin 15 mg oral tablet, extended release 2 tab(s), Oral, q12hr, # 28 tab(s), 0 Refill(s), Start Date: 05/21/18 10:04:00 AM CDT, Pharmacy: [facility] [id number] Start Date: 05/21/18 Stop Date: 09/09/18 Status: Completed MS Contin 30 mg oral tablet, extended release 1 tab(s), Oral, q12hr interval, 0 Refill(s), Start Date: 09/12/18 9:49:00 AM CDT Start Date: 09/12/18 Stop Date: 06/16/19 Status: Completed Multi-Day Plus Minerals oral tablet 1 tab(s), Oral, Daily, # 30 tab(s), 0 Refill(s), Start Date: 09/30/22 3:49:00 PM FLORAL DECORATOR Start Date: 09/30/22 Status: Ordered oxycodone-acetaminophen 10 mg-325 mg oral tablet 0 Refill(s), Start Date: 11/18/22 1:27:00 PM FLORAL DECORATOR Start Date: 11/18/22 Stop Date: 04/09/23 Status: [...] Start Date: 05/17/18 4:24:00 PM CDT, Pharmacy: [facility] [id number] Start Date: 05/17/18 Stop Date: 09/09/18 Status: Completed Percocet 5/325 oral tablet See Instructions, PRN PRN for pain, 1 tab(s) Oral q6hr not to exceed 4000 mg acetaminophen per day,# 60 tab(s), 0 Refill(s), Start Date: 09/14/18 9:23:00 AM CDT, Pharmacy: [facility] Start Date: 09/14/18 Stop Date: 06/16/19 Status: Completed pregabalin 75 mg oral capsule 1 cap(s), Oral, BID, 0 Refill(s), Start Date: 03/31/24 10:44:00 AM CDT Start Date: 03/31/24 Status: Ordered Senokot S 50 mg-8.6 mg oral tablet 1 tab(s), Oral, BID, X 10 days, # 20 tab(s), 0 Refill(s), Start Date: 05/21/18 10:05:00 AM CDT, Pharmacy: [facility] [id number] Start Date: 05/21/18 Stop Date: 05/31/18 Status: Completed tamsulosin 0.4 mg oral capsule 1 cap(s), Oral, Daily, # 90 cap(s), 3 Refill(s), Start Date: 12/20/18 1:38:00 PM FLORAL DECORATOR, Pharmacy: [facility] Start Date: 12/20/18 Stop Date: 09/30/22 Status: Completed tamsulosin 0.4 mg oral capsule 1 cap(s), Oral, Daily, 0 Refill(s), Start Date: 09/09/18 7:57:00 AM CDT Start Date: 09/09/18 Stop Date: 12/20/18 Status: Discontinued traMADol 50 mg oral tablet 1 tab(s), Oral, q4hr interval, PRN PRN as needed for pain, # 12 tab(s), 0 Refill(s), Start Date: 03/03/23 1:54:00 PM CDT, Pharmacy: [facility], 173, cm, 11/18/22 13:25:00 FLORAL DECORATOR, Height/Length Measured, 89.5, kg, 03/03/23 12:25:00 CDT, Weight Dosing Start Date: 03/03/23 Stop Date: 03/31/24 Status: Completed vancomycin 1 g intravenous injection IV, q12hr interval, prescribed by Dr Perdue, 0 Refill(s), Start Date: 10/21/18 8:45:00 AM FLORAL DECORATOR Start Date: 10/21/18 Stop Date: 11/16/18 Status: Completed Zinc 140 mg (as elemental zinc 50 mg) oral tablet 1 tab(s), Oral, Daily, # 90 tab(s), 0 Refill(s), Start Date: 09/30/22 3:48:00 PM FLORAL DECORATOR Start Date: 09/30/22 Status: Ordered Problem List [...] Elbow surgery from elbow to forearm 13left [id number] procedure 15left 16LT Rotator Cuff Repair 17right 18RT Tendon Repair 19right side 20RT Wrist Surgery- Frzn wrist- 2 screws Social History Social History Type Response Sex Male Patient Care team information Personnel Name: Carlos Enrique Obando MD Address: Address: [address] [place] [id number] [place] [address]
--- OUTSIDE RECORDS SUMMARY | 2024-11-23 00:08 | XMS_ITS | Continuity of Care Document ---
Author Organization [facility] Address [address] [place] [address] Care Team Providers Care Wire Fence Builder Name Role Phone Carlos Enrique Obando Primary Care Physician Encounter Date(s): 04/19/24 - 04/19/[address] [facility] [address] [place], [place] [address] Discharge Disposition: 01 Discharged to Home [...] Date: 04/22/23 10:25:00 AM CDT, Pharmacy: [facility], 173, cm, 04/09/23 15:48:00 CDT, Height/Length [...] Date: 03/09/23 10:48:00 AM CDT, Pharmacy: [facility], 173, cm, 03/09/23 10:20:00 CDT, Height/Length Measured, 89.5, kg, 03/09/23 10:22:00 CDT, Weight Dosing Start Date: 03/09/23 Stop Date: 08/27/23 Status: Completed amLODIPine 5 mg oral tablet 1 tab(s), Oral, Daily, # 90 tab(s), 3 Refill(s), Start Date: 08/27/23 8:41:00 AM CDT, Pharmacy: [facility], 173, cm, 04/09/23 15:48:00 CDT, Height/Length [...] Start Date: 03/09/23 10:49:00 AM CDT, Pharmacy: [facility], 173, cm, 03/09/23 10:20:00 CDT, Height/Length Measured, 89.5, kg, 03/09/23 10:22:00 CDT,Weight Dosing Start Date: 03/09/23 Stop Date: 04/22/23 Status: Completed baclofen 10 mg oral tablet 1 tab(s), Oral, TID, # 30 tab(s), 1 Refill(s), Start Date: 04/22/23 11:37:00 AM CDT, [facility], cm, 04/09/23 15:48:00 CDT, Height/Length Measured, 87.6, kg, 04/09/23 15:50:00 CDT, Weight Dosing Start Date: 04/22/23 Stop Date: 03/31/24 Status: Completed baclofen 10 mg oral tablet 0 Refill(s), Start Date: 11/18/22 1:27:00 PM PROGRAM SCHEDULER Start Date: 11/18/22 Stop Date: 03/09/23 Status: Discontinued baclofen 10 mg oral tablet 1 tab(s), Oral, TID, PRN PRN for pain, 0 Refill(s), Start Date: 05/15/18 11:15:00 PM CDT Start Date: 05/15/18 Stop Date: 06/16/19 Status: Completed baclofen 10 mg tablet baclofen 10 mg tablet, 1 tab(s), Oral, TID, # 30 tab(s), 2 Refill(s), Pharmacy: [facility], 173, cm, 04/09/23 15:48:00 CDT, Height/Length Measured, 87.6, kg, 04/09/23 15:50:00 CDT, Weight Dosing Start Date: 06/08/23 Stop Date: 03/31/24 Status: Completed baclofen 10 mg tablet baclofen 10 mg tablet, 1 tab(s), Oral, TID, # 30 tab(s), 2 Refill(s), Pharmacy: 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, 173, cm, 03/31/24 10:46:00 CDT, Height/Length [...] Start Date: 04/19/24 10:19:00 AM CDT, Pharmacy: [facility] #[id number], 173, cm, 03/31/24 10:46:00 CDT, Height/Length Measured, 88.2, kg, 03/31/24 10:51:00 CDT, Weight Dosing Start Date: 04/19/24 Stop Date: 09/05/25 Status: Ordered ibuprofen 600 mg oral tablet 1 tab(s), Oral, QID, PRN PRN for pain, with food or milk, # 30 tab(s), 0 Refill(s), Start Date: 03/03/23 1:53:00 PM CDT, Pharmacy: [facility], 173, cm, 11/18/22 13:25:00 PROGRAM SCHEDULER, Height/Length Measured, 89.5, kg, 03/03/23 12:25:00 CDT, [...] Start Date: 03/31/24 11:26:00 AM CDT, Pharmacy: [facility], 173, cm, 03/31/24 10:46:00 CDT, Height/Length Measured, 88.2, kg, 03/31/24 10:51:00 CDT, Weight Dosing Start Date: 03/31/24 Stop Date: 04/11/24 Status: Completed levoFLOXacin 500 mg oral tablet 1 tab(s), Oral, Daily, For chronic recurrent sinusitis, X 10 days, # 10 tab(s), 0 Refill(s), Start Date: 04/11/24 3:29:00 PM CDT, Pharmacy: [facility], 173, cm, 03/31/24 10:46:00 CDT, Height/Length Measured, 88.2, kg, 03/31/24 10:51:00 CDT, Weight Dosing Start Date: 04/11/24 Stop Date: 04/19/24 Status: Completed levoFLOXacin 500 mg oral tablet 1 tab(s), Oral, Daily, For chronic recurrent sinusitis, # 10 tab(s), 0 Refill(s), Start Date: 04/19/24 10:19:00 AM CDT, Pharmacy: [id number], 173, cm, 03/31/24 10:46:00 CDT, Height/Length Measured, 88.2, kg, 03/31/24 10:51:00 CDT, Weight Dosing Start Date: 04/19/24 Stop Date: 04/29/24 Status: Ordered linezolid 600 mg oral tablet 1 tab(s), Oral, q12hr, generic please, # 28 tab(s), 0 Refill(s), Start Date: 11/16/18 11:41:00 AM PROGRAM SCHEDULER, Pharmacy: [facility] Start Date: 11/16/18 Stop Date: 12/02/18 Status: Completed Medrol 4 mg oral tablet 1 packet(s), Oral, ONETIME, as directed on package labeling, # 21 tab(s), 0 Refill(s), Start Date: 11/18/22 1:39:00 PM PROGRAM SCHEDULER, Pharmacy: [facility], 173, cm, 11/18/22 13:25:00 PROGRAM SCHEDULER, Height/Length Measured, 86.3, kg, 11/18/22 13:27:00 PROGRAM SCHEDULER, Weight Dosing Start Date: 11/18/22 Stop Date: 03/09/23 Status: Completed metFORMIN 500 mg oral tablet 0.5 tab(s), Oral, BID, # 30 tab(s), 11 Refill(s), Start Date: 04/03/24 11:56:00 AM CDT, Pharmacy: [facility], 173, cm, 03/31/24 10:46:00 CDT, Height/Length Measured, 88.2, kg, 03/31/24 10:51:00 CDT, Weight Dosing Start Date: 04/03/24 Stop Date: 04/19/24 Status: Completed metFORMIN 500 mg oral tablet 0.5 tab(s), Oral, BID, # 30 tab(s), 11 Refill(s), Start Date: 04/19/24 10:19:00 AM CDT, Pharmacy: [facility] #[id number], 173, cm, 03/31/24 10:46:00 CDT, Height/Length Measured, 88.2, kg, 03/31/2410:51:00 CDT, Weight Dosing Start Date: 04/19/24 Status: Ordered MiraLax oral powder for reconstitution 17 gm, Oral, Daily, Dissolve in water before taking, # 255 gm, 0 Refill(s), Start Date: 05/21/18 10:05:00 AM CDT, Pharmacy: [facility] [id number] Start Date: 05/21/18 Stop Date: 03/31/24 Status: Completed MS Contin 15 mg oral tablet, extended release 2 tab(s), Oral, q12hr, # 28 tab(s), 0 Refill(s), Start Date: 05/21/18 10:04:00 AM CDT, Pharmacy: [facility] [id number] Start Date: 05/21/18 Stop Date: 09/09/18 Status: Completed MS Contin 30 mg oral tablet, extended release 1 tab(s), Oral, q12hr interval, 0 Refill(s), Start Date: 09/12/18 9:49:00 AM CDT Start Date: 09/12/18 Stop Date: 06/16/19 Status: Completed Multi-Day Plus Minerals oral tablet 1 tab(s), Oral, Daily, # 30 tab(s), 0 Refill(s), Start Date: 09/30/22 3:49:00 PM PROGRAM SCHEDULER Start Date: 09/30/22 Status: Ordered oxycodone-acetaminophen 10 mg-325 mg oral tablet 0 Refill(s), Start Date: 11/18/22 1:27:00 PM PROGRAM SCHEDULER Start Date: 11/18/22 Stop Date: 04/09/23 Status: [...] Start Date: 05/17/18 4:24:00 PM CDT, Pharmacy: [facility] [id number] Start Date: 05/17/18 Stop Date: 09/09/18 Status: Completed Percocet 5/325 oral tablet See Instructions, PRN PRN for pain, 1 tab(s) Oral q6hr not to exceed 4000 mg acetaminophen per day,# 60 tab(s), 0 Refill(s), Start Date: 09/14/18 9:23:00 AM CDT, Pharmacy: [facility] Start Date: 09/14/18 Stop Date: 06/16/19 Status: Completed pregabalin 75 mg oral capsule 1 cap(s), Oral, BID, 0 Refill(s), Start Date: 03/31/24 10:44:00 AM CDT Start Date: 03/31/24 Status: Ordered Senokot S 50 mg-8.6 mg oral tablet 1 tab(s), Oral, BID, X 10 days, # 20 tab(s), 0 Refill(s), Start Date: 05/21/18 10:05:00 AM CDT, Pharmacy: [facility] [id number] Start Date: 05/21/18 Stop Date: 05/31/18 Status: Completed tamsulosin 0.4 mg oral capsule 1 cap(s), Oral, Daily, # 90 cap(s), 3 Refill(s), Start Date: 12/20/18 1:38:00 PM PROGRAM SCHEDULER, [facility] Start Date: 12/20/18 Stop Date: 09/30/22 Status: Completed tamsulosin 0.4 mg oral capsule 1 cap(s), Oral, Daily, 0 Refill(s), Start Date: 09/09/18 7:57:00 AM CDT Start Date: 09/09/18 Stop Date: 12/20/18 Status: Discontinued traMADol 50 mg oral tablet 1 tab(s), Oral, q4hr interval, PRN PRN as needed for pain, # 12 tab(s), 0 Refill(s), Start Date: 03/03/23 1:54:00 PM CDT, Pharmacy: [facility], 173, cm, 11/18/22 13:25:00 PROGRAM SCHEDULER, Height/Length Measured, 89.5, kg, 03/03/23 12:25:00 CDT, Weight Dosing Start Date: 03/03/23 Stop Date: 03/31/24 Status: Completed vancomycin 1 g intravenous injection IV, q12hr interval, prescribed by Dr Perdue, 0 Refill(s), Start Date: 10/21/18 8:45:00 AM PROGRAM SCHEDULER Start Date: 10/21/18 Stop Date: 11/16/18 Status: Completed Zinc 140 mg (as elemental zinc 50 mg) oral tablet 1 tab(s), Oral, Daily, # 90 tab(s), 0 Refill(s), Start Date: 09/30/22 3:48:00 PM PROGRAM SCHEDULER Start Date: 09/30/22 Status: Ordered Problem List [...] Carlos Enrique Obando MD Address: Address: [address] [address]- [place]
--- OUTSIDE RECORDS SUMMARY | 2024-11-23 00:08 | XMS_ITS | Continuity of Care Document ---
Author Organization [facility] Address [address] [place] [address] Care Team Providers Care Jewel Bearing Broacher Name Role Phone Carlos Enrique Obando Primary Care Physician [phone] Encounter Date(s): 08/10/24 - 08/10/24 [facility] [address] [place] [address] [place] Discharge Disposition: Discharged to Home or [...] Start Date: 04/22/23 10:25:00 AM CDT, Pharmacy: [facility], 173, cm, 04/09/23 15:48:00 CDT, [...] Start Date: 03/09/23 10:48:00 AM CDT, Pharmacy: [facility], 173, cm, 03/09/23 10:20:00 CDT, Height/Length Measured, 89.5, kg, 03/09/23 10:22:00 CDT, Weight Dosing Start Date: 03/09/23 Stop Date: 08/27/23 Status: Completed amLODIPine 5 mg oral tablet 1 tab(s), Oral, Daily, # 90 tab(s), 3 Refill(s), Start Date: 08/27/23 8:41:00 AM CDT, Pharmacy: [facility], 173, cm, 04/09/23 15:48:00 CDT, [...] Start Date: 07/26/24 3:47:00 PM CDT, Pharmacy: [facility] #[id number], 173, cm, 07/26/24 15:14:00 CDT, Height/Length Measured, [...] Start Date: 07/07/24 11:58:00 AM CDT, Pharmacy: [facility] #[id number], 173, cm, 07/07/24 9:24:00 CDT, Height/Length Measured, 88.2, kg, 07/07/24 9:25:00 CDT, Weight Dosing Start Date: 07/07/24 Status: Ordered baclofen 10 mg oral tablet 1 tab(s), Oral, TID, # 30 tab(s), 0 Refill(s), Start Date: 03/09/23 10:49:00 AM CDT, Pharmacy: [facility], 173, cm, 03/09/23 10:20:00 CDT, Height/Length Measured, 89.5, kg, 03/09/23 10:22:00 CDT,Weight Dosing Start Date: 03/09/23 Stop Date: 04/22/23 Status: Completed baclofen 10 mg oral tablet 1 tab(s), Oral, TID, # 30 tab(s), 1 Refill(s), Start Date: 04/22/23 11:37:00 AM CDT, [facility], [facility], cm, 04/09/23 15:48:00 CDT, Height/Length Measured, 87.6, kg, 04/09/23 15:50:00 CDT, Weight Dosing Start Date: 04/22/23 Stop Date: 03/31/24 Status: Completed baclofen 10 mg oral tablet 0 Refill(s), Start Date: 11/18/22 1:27:00 PM STOCK PARTS FABRICATOR Start Date: 11/18/22 Stop Date: 03/09/23 Status: Discontinued baclofen 10 mg oral tablet 1 tab(s), Oral, TID, PRN PRN for pain, 0 Refill(s), Start Date: 05/15/18 11:15:00 PM CDT Start Date: 05/15/18 Stop Date: 06/16/19 Status: Completed baclofen 10 mg tablet baclofen 10 mg tablet, 1 tab(s), Oral, TID, # 30 tab(s), 2 Refill(s), Pharmacy: [facility], 173, cm, 04/09/23 15:48:00 CDT, Height/Length Measured, 87.6, kg, 04/09/23 15:50:00 CDT, Weight Dosing Start Date: 06/08/23 Stop Date: 03/31/24 Status: Completed baclofen 10 mg tablet baclofen 10 mg tablet, 1 tab(s), Oral, TID, # 30 tab(s), 2 Refill(s), Pharmacy: [facility], 173, cm, 04/09/23 15:48:00 CDT, Height/Length Measured, 87.6, kg, 04/09/23 15:50:00 CDT, Weight Dosing Start Date: 06/18/23 Stop Date: 03/31/24 Status: Completed carisoprodol 250 mg oral tablet 1 tab(s), Oral, BID, # 60 tab(s), 5 Refill(s), Start Date: 07/26/24 3:47:00 PM CDT, Pharmacy: [facility] #[id number], 173, cm, 07/26/24 15:14:00 CDT, Height/Length Measured, [...] 0 Refill(s), Start Date: 11/09/18 6:34:00 PM STOCK PARTS FABRICATOR, Pharmacy: [facility] Start Date: 11/09/18 Stop Date: 12/16/18 Status: Completed ciprofloxacin 750 mg oral tablet 1 tab(s), Oral, q12hr, 2h away from dairy, X 14 days, # 28 tab(s), 2 Refill(s), Start Date: 182:21:00 PM STOCK PARTS FABRICATOR, Pharmacy: [facility] Start Date: 09/19/18 Stop Date: 11/09/18 [...] 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 daily 3 months 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, # 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, 0 Refill(s), 03/16/19 6:45:00 [...] 3 Refill(s), Start Date: 12/20/18 1:37:00 PM STOCK PARTS FABRICATOR, Pharmacy: [facility] Start Date: 12/20/18 Stop Date: 09/30/22 Status: Completed finasteride 5 mg oral tablet 1 tab(s), Oral, Daily, # 30 tab(s), 0 Refill(s), Start Date: 03/31/24 10:43:00 AM CDT Start Date: 03/31/24 Stop Date: 06/21/24 Status: Completed fluticasone 50 mcg/inh nasal spray 2 spray(s), Nasal, BID, X 42 days, # 16 gm, 11 Refill(s), Start Date: 04/03/24 11:55:00 AM CDT, Pharmacy: [facility], 173, [...] Start Date: 04/19/24 10:19:00 AM CDT, [id number], 173, cm, 03/31/24 10:46:00 CDT, Height/Length Measured, 88.2, kg, 03/31/24 10:51:00 CDT, Weight Dosing Start Date: 04/19/24 Stop Date: 06/21/24 Status: Completed gabapentin 300 mg oral capsule 1 cap(s), Oral, TID, # 90 cap(s), 11 Refill(s), Start Date: 07/07/24 10:05:00 AM CDT, Pharmacy: [facility] #[id number], 173, cm, 07/07/24 9:24:00 CDT, Height/Length Measured, 88.2, kg, 07/07/24 9:25:00 CDT, Weight Dosing Start Date: 07/07/24 Stop Date: 07/11/24 Status: Discontinued hydrocodone-acetaminophen 5 mg-325 mg oral tablet See Instructions, 1/2 to 1 tab(s) Oral TID, # 60 tab(s), 0 Refill(s), Start Date: 07/11/24 2:53:00 PM CDT, Pharmacy: [facility] #[id number], 173, cm, 07/07/24 9:24:00 CDT, Height/Length Measured,88.2, kg, 07/07/24 9:25:00 CDT, Weight Dosing Start Date: 07/11/24 Stop Date: 07/26/24 Status: Discontinued ibuprofen 600 mg oral tablet 1 tab(s), Oral, QID, PRN PRN for pain, with food or milk, # 30 tab(s), 0 Refill(s), Start Date: 03/03/23 1:53:00 PM CDT, Pharmacy: [facility], 173, cm, 11/18/22 13:25:00 STOCK PARTS FABRICATOR, Height/Length Measured, 89.5, kg, 03/03/23 12:25:00 CDT, [...] Start Date: 07/07/24 10:05:00 AM CDT, Pharmacy: [facility] #[id number], 173, cm, 07/07/24 9:24:00 CDT, Height/Length Measured, [...] Start Date: 03/31/24 11:26:00 AM CDT, Pharmacy: [facility], 173, cm, 03/31/24 10:46:00 CDT, Height/Length Measured, 88.2, kg, 03/31/24 10:51:00 CDT, Weight Dosing Start Date: 03/31/24 Stop Date: 04/11/24 Status: Completed levoFLOXacin 500 mg oral tablet 1 tab(s), Oral, Daily, For chronic recurrent sinusitis, X 10 days, # 10 tab(s), 0 Refill(s), Start Date: 04/11/24 3:29:00 PM CDT, Pharmacy: [facility], 173, cm, 03/31/24 10:46:00 CDT, Height/Length Measured, 88.2, kg, 03/31/24 10:51:00 CDT, Weight Dosing Start Date: 04/11/24 Stop Date: 04/19/24 Status: Completed levoFLOXacin 500 mg oral tablet 1 tab(s), Oral, Daily, For chronic recurrent sinusitis, # 10 tab(s), 0 Refill(s), Start Date: 04/19/24 10:19:00 AM CDT, Pharmacy: [facility] #[id number], 173, cm, 03/31/24 10:46:00 CDT, Height/Length Measured, 88.2, kg, 03/31/24 10:51:00 CDT, Weight Dosing Start Date: 04/19/24 Stop Date: 06/06/24 Status: Completed linezolid 600 mg oral tablet 1 tab(s), Oral, q12hr, generic please, # 28 tab(s), 0 Refill(s), Start Date: 11/16/18 11:41:00 AM STOCK PARTS FABRICATOR, Pharmacy: [facility] Start Date: 11/16/18 Stop Date: 12/02/18 Status: Completed Medrol 4 mg oral tablet 1 packet(s), Oral, ONETIME, as directed on package labeling, # 21 tab(s), 0 Refill(s), Start Date: 11/18/22 1:39:00 PM STOCK PARTS FABRICATOR, Pharmacy: [facility], 173, cm, 11/18/22 13:25:00 STOCK PARTS FABRICATOR, Height/Length Measured, 86.3, kg, 11/18/22 13:27:00 STOCK PARTS FABRICATOR, Weight Dosing Start Date: 11/18/22 Stop Date: [...] 04/19/24 10:19:00 AM CDT, Pharmacy: [facility] #[id number], 173, cm, 03/31/24 10:46:00 CDT, Height/Length Measured, 88.2, kg, 03/31/2410:51:00 CDT, Weight Dosing Start Date: 04/19/24 Stop Date: 06/21/24 Status: Completed metFORMIN 500 mg oral tablet 1 tab(s), Oral, BID, # 180 tab(s), 3 Refill(s), Start Date: 07/07/24 11:58:00 AM CDT, Pharmacy: [facility] #[id number], 173, cm, 07/07/24 9:24:00 CDT, Height/Length Measured, 88.2, kg, 07/07/24 9:25:00 CDT, Weight Dosing Start Date: 07/07/24 Status: Ordered MiraLax oral powder for reconstitution 17 gm, Oral, Daily, Dissolve in water before taking, # 255 gm, 0 Refill(s), Start Date: 05/21/18 10:05:00 AM CDT, Pharmacy: [facility] [id number] Start Date: 05/21/18 Stop Date: 03/31/24 Status: Completed MS Contin 15 mg oral tablet, extended release 2 tab(s), Oral, q12hr, # 28 tab(s), 0 Refill(s), Start Date: 05/21/18 10:04:00 AM CDT, Pharmacy: [facility] [id number] Start Date: 05/21/18 Stop Date: 09/09/18 Status: Completed MS Contin 30 mg oral tablet, extended release 1 tab(s), Oral, q12hr interval, 0 Refill(s), Start Date: 09/12/18 9:49:00 AM CDT Start Date: 09/12/18 Stop Date: 06/16/19 Status: Completed Multi-Day Plus Minerals oral tablet 1 tab(s), Oral, Daily, # 30 tab(s), 0 Refill(s), Start Date: 09/30/22 3:49:00 PM STOCK PARTS FABRICATOR Start Date: 09/30/22 Stop Date: 06/21/24 Status: Completed Narcan 4 mg/0.1 mL nasal spray 1 spray(s), Nasal, ONETIME, # 2 EA, 11 Refill(s), Start Date: 07/07/24 10:15:00 AM CDT, Pharmacy: [facility] #[id number], 173, cm, 07/07/24 9:24:00 CDT, Height/Length Measured, 88.2, kg, 249:25:00 CDT, Weight Dosing Start Date: 07/07/24 Stop Date: 07/26/24 Status: Discontinued oxycodone-acetaminophen 10 mg-325 mg oral tablet 0 Refill(s), Start Date: 11/18/22 1:27:00 PM STOCK PARTS FABRICATOR Start Date: 11/18/22 Stop Date: 04/09/23 Status: [...] Start Date: 07/07/24 10:05:00 AM CDT, Pharmacy: [facility] #[id number], 173, cm, 07/07/24 9:24:00 CDT, Height/Length Measured, [...] Start Date: 05/17/18 4:24:00 PM CDT, Pharmacy: [facility] [id number] Start Date: 05/17/18 Stop Date: 09/09/18 Status: Completed Percocet 5/325 oral tablet See Instructions, PRN PRN for pain, 1 tab(s) Oral q6hr not to exceed 4000 mg acetaminophen per day,# 60 tab(s), 0 Refill(s), Start Date: 09/14/18 9:23:00 AM CDT, Pharmacy: [facility] Start Date: 09/14/18 Stop Date: 06/16/19 Status: Completed predniSONE 10 mg oral tablet 3 tab(s), Oral, BID, For inflammation and pain, # 84 tab(s), 0 Refill(s), Start Date: 08/10/24 9:14:00 AM CDT, Pharmacy: [id number], 173, cm, 07/26/24 15:14:00 CDT, Height/Length Measured, 88, kg, 07/26/24 15:24:00 CDT, Weight Dosing Start Date: 08/10/24 Status: Ordered predniSONE 10 mg oral tablet 3 tab(s), Oral, BID, For inflammation and pain, # 84 tab(s), 0 Refill(s), Start Date: 07/26/24 3:47:00 PM CDT, Pharmacy: [facility] #[id number], 173, cm, 07/26/24 15:14:00 CDT, Height/Length Measured, [...] Start Date: 05/21/18 10:05:00 AM CDT, Pharmacy: [facility] [id number] Start Date: 05/21/18 Stop Date: 05/31/18 Status: Completed tamsulosin 0.4 mg oral capsule 1 cap(s), Oral, Daily, # 90 cap(s), 3 Refill(s), Start Date: 12/20/18 1:38:00 PM STOCK PARTS FABRICATOR, Pharmacy: [facility] Start Date: 12/20/18 Stop Date: 09/30/22 Status: Completed tamsulosin 0.4 mg oral capsule 1 cap(s), Oral, Daily, 0 Refill(s), Start Date: 09/09/18 7:57:00 AM CDT Start Date: 09/09/18 Stop Date: 12/20/18 Status: Discontinued traMADol 50 mg oral tablet 1 tab(s), Oral, q4hr interval, PRN PRN as needed for pain, # 12 tab(s), 0 Refill(s), Start Date: 03/03/23 1:54:00 PM CDT, Pharmacy: [facility], 173, cm, 11/18/22 13:25:00 STOCK PARTS FABRICATOR, Height/Length Measured, 89.5, kg, 03/03/23 12:25:00 CDT, Weight Dosing Start Date: 03/03/23 Stop Date: 03/31/24 Status: Completed vancomycin 1 g intravenous injection IV, q12hr interval, prescribed by Dr Perdue, 0 Refill(s), Start Date: 10/21/18 8:45:00 AM STOCK PARTS FABRICATOR Start Date: 10/21/18 Stop Date: 11/16/18 Status: Completed Zinc 140 mg (as elemental zinc 50 mg) oral tablet 1 tab(s), Oral, Daily, # 90 tab(s), 0 Refill(s), Start Date: 09/30/22 3:48:00 PM STOCK PARTS FABRICATOR Start Date: 09/30/22 Stop Date: 06/21/24 Status: [...] Elbow surgery from elbow to forearm 14left [id number] procedure 16left 17LT Rotator Cuff Repair 18right 19RT Tendon Repair 20right side 21RT Wrist Surgery- Frzn wrist- 2 screws Results Radiology Reports * Exam Date Time Procedure Performing Provider Status 08/10/24 1:41 PM MRI Brain W WO Contrast Brittany Berrios ; Javi (Verified) Notes: (MRI Brain W WO Contrast) Reason For Exam: Stroke like symptoms Report History: Strokelike symptoms. Dizziness. Memory loss. Technique: Multiplanar multisequence imaging of the brain obtained without and with IV contrast enhancement. Comparison: None. Findings: Diffusion imaging shows no evidence for acute ischemia or infarct. Exam shows symmetric appearing ventricular system and cortical sulci. There are scattered white matter T2 foci. 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 Other etiologies including demyelination such as multiple sclerosis must be considered clinically. There is no positive mass effect or midline shift. There is no evidence for intracranial hemorrhage. There is a left mastoid effusion. There is bilateral maxillary sinus and less pronounced ethmoid sinus disease. This appears to be predominantly mucosal thickening without significant air-fluid level. No mass lesions identified. With contrast enhancement there are no focal areas of abnormal enhancement identified. 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 NO EVIDENCE FOR ACUTE ISCHEMIA/INFARCT. INCIDENTAL LEFT MASTOID EFFUSION. BILATERAL MAXILLARY SINUS DISEASE AND LESS PRONOUNCED ETHMOID SINUS DISEASE NONSPECIFIC. NO ACUTE INTRACRANIAL PATHOLOGY OTHERWISE IDENTIFIED. Electronically signed by Sin Cespedes M.D.. Final Dictated by: Sin Cespedes MD Dictated DT/TM: 08/10/2024 1:43 pm Signed by: Sin Cespedes MD Signed (Electronic Signature): 08/10/2024 1:47 pm Social History Social History Type Response Sex Male Patient Care team information Personnel Name: Carlos Enrique Obando MD Address: Address: [address] [address]- [place]
--- OUTSIDE RECORDS SUMMARY | 2024-11-23 00:08 | XMS_ITS | Summary of Care ---
Author Organization [facility] Address [address] [facility] [address] [place] [address] Care Team Providers Care Inspector Dials Name Role Phone Lucretia Carvalho Primary Care Physician Encounter Date(s): 03/10/24 - 03/10/24 Family Medicine [facility] [address] [place] [address]- [place] Discharge Disposition: Discharged to [...] Start Date: 04/22/23 10:25:00 AM CDT, Pharmacy: [facility], 173, cm, 04/09/23 15:48:00 CDT, [...] Start Date: 03/09/23 10:48:00 AM CDT, Pharmacy: [facility], 173, cm, 03/09/23 10:20:00 CDT, Height/Length Measured, 89.5, kg, 03/09/23 10:22:00 CDT, Weight Dosing Start Date: 03/09/23 Stop Date: 08/27/23 Status: Completed amLODIPine 5 mg oral tablet 1 tab(s), Oral, Daily, # 90 tab(s), 3 Refill(s), Start Date: 08/27/23 8:41:00 AM CDT, Pharmacy: [facility], 173, cm, 04/09/23 15:48:00 CDT, [...] Start Date: 03/09/23 10:49:00 AM CDT, Pharmacy: [facility], 173, cm, 03/09/23 10:20:00 CDT, Height/Length Measured, 89.5, kg, 03/09/23 10:22:00 CDT,Weight Dosing Start Date: 03/09/23 Stop Date: 04/22/23 Status: Completed baclofen 10 mg oral tablet 1 tab(s), Oral, TID, # 30 tab(s), 1 Refill(s), Start Date: 04/22/23 11:37:00 AM CDT, Pharmacy: [facility], 173, cm, 04/09/23 15:48:00 CDT, Height/Length Measured, 87.6, kg, 04/09/23 15:50:00 CDT, Weight Dosing Start Date: 04/22/23 Status: Ordered baclofen 10 mg oral tablet 0 Refill(s), Start Date: 11/18/22 1:27:00 PM ACADEMIC ADVISEMENT DIRECTOR Start Date: 11/18/22 Stop Date: 03/09/23 Status: Discontinued baclofen 10 mg oral tablet 1 tab(s), Oral, TID, PRN PRN for pain, 0 Refill(s), Start Date: 05/15/18 11:15:00 PM CDT Start Date: 05/15/18 Stop Date: 06/16/19 Status: Completed baclofen 10 mg tablet baclofen 10 mg tablet, 1 tab(s), Oral, TID, # 30 tab(s), 2 Refill(s), Pharmacy: [facility], 173, cm, 04/09/23 15:48:00 CDT, Height/Length Measured, 87.6, kg, 04/09/23 15:50:00 CDT, Weight Dosing Start Date: 06/08/23 Status: Ordered baclofen 10 mg tablet baclofen 10 mg tablet, 1 tab(s), Oral, TID, # 30 tab(s), 2 Refill(s), Pharmacy: [facility], 173, cm, 04/09/23 15:48:00 CDT, [...] 0 Refill(s), Start Date: 11/09/18 6:34:00 PM ACADEMIC ADVISEMENT DIRECTOR, Pharmacy: [facility] Start Date: 11/09/18 Stop Date: 12/16/18 Status: Completed ciprofloxacin 750 mg oral tablet 1 tab(s), Oral, q12hr, 2h away from dairy, X 14 days, # 28 tab(s), 2 Refill(s), Start Date: 182:21:00 PM ACADEMIC ADVISEMENT DIRECTOR, Pharmacy: [facility] Start Date: 09/19/18 Stop Date: 11/09/18 [...] 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 daily 3 months 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, # 1 boxes, 0 Refill(s), 03/16/19 [...] 3 Refill(s), Start Date: 12/20/18 1:37:00 PM ACADEMIC ADVISEMENT DIRECTOR, Pharmacy: [facility] Start Date: 12/20/18 Stop Date: 09/30/22 Status: Completed ibuprofen 600 mg oral tablet 1 tab(s), Oral, QID, PRN PRN for pain, with food or milk, # 30 tab(s), 0 Refill(s), Start Date: 03/03/23 1:53:00 PM CDT, Pharmacy: [facility], 173, cm, 11/18/22 13:25:00 ACADEMIC ADVISEMENT DIRECTOR, Height/Length Measured, 89.5, kg, 03/03/23 12:25:00 CDT, [...] 0 Refill(s), Start Date: 11/16/18 11:41:00 AM ACADEMIC ADVISEMENT DIRECTOR, Pharmacy: [facility] Start Date: 11/16/18 Stop Date: 12/02/18 Status: Completed Medrol 4 mg oral tablet 1 packet(s), Oral, ONETIME, as directed on package labeling, # 21 tab(s), 0 Refill(s), Start Date: 11/18/22 1:39:00 PM ACADEMIC ADVISEMENT DIRECTOR, Pharmacy: [facility], 173, cm, 11/18/22 13:25:00 ACADEMIC ADVISEMENT DIRECTOR, Height/Length Measured, 86.3, kg, 11/18/22 13:27:00 ACADEMIC ADVISEMENT DIRECTOR, Weight Dosing Start Date: 11/18/22 Stop Date: 03/09/23 Status: Completed MiraLax oral powder for reconstitution 17 gm, Oral, Daily, Dissolve in water before taking, # 255 gm, 0 Refill(s), Start Date: 05/21/18 10:05:00 AM CDT, Pharmacy: [facility] [id number] Start Date: 05/21/18 Status: Ordered MS Contin 15 mg oral tablet, extended release 2 tab(s), Oral, q12hr, # 28 tab(s), 0 Refill(s), Start Date: 05/21/18 10:04:00 AM CDT, Pharmacy: [facility] [id number] Start Date: 05/21/18 Stop Date: 09/09/18 Status: Completed MS Contin 30 mg oral tablet, extended release 1 tab(s), Oral, q12hr interval, 0 Refill(s), Start Date: 09/12/18 9:49:00 AM CDT Start Date: 09/12/18 Stop Date: 06/16/19 Status: Completed Multi-Day Plus Minerals oral tablet 1 tab(s), Oral, Daily, # 30 tab(s), 0 Refill(s), Start Date: 09/30/22 3:49:00 PM ACADEMIC ADVISEMENT DIRECTOR Start Date: 09/30/22 Status: Ordered oxycodone-acetaminophen 10 mg-325 mg oral tablet 0 Refill(s), Start Date: 11/18/22 1:27:00 PM ACADEMIC ADVISEMENT DIRECTOR Start Date: 11/18/22 Stop Date: 04/09/23 Status: [...] Start Date: 05/17/18 4:24:00 PM CDT, Pharmacy: [facility] [id number] Start Date: 05/17/18 Stop Date: 09/09/18 Status: Completed Percocet 5/325 oral tablet See Instructions, PRN PRN for pain, 1 tab(s) Oral q6hr not to exceed 4000 mg acetaminophen per day,# 60 tab(s), 0 Refill(s), Start Date: 09/14/18 9:23:00 AM CDT, Pharmacy: [facility] Start Date: 09/14/18 Stop Date: 06/16/19 Status: Completed Senokot S 50 mg-8.6 mg oral tablet 1 tab(s), Oral, BID, X 10 days, # 20 tab(s), 0 Refill(s), Start Date: 05/21/18 10:05:00 AM CDT, Pharmacy: [facility] [id number] Start Date: 05/21/18 Stop Date: 05/31/18 Status: Completed tamsulosin 0.4 mg oral capsule 1 cap(s), Oral, Daily, # 90 cap(s), 3 Refill(s), Start Date: 12/20/18 1:38:00 PM ACADEMIC ADVISEMENT DIRECTOR, Pharmacy: [facility] Start Date: 12/20/18 Stop Date: 09/30/22 Status: Completed tamsulosin 0.4 mg oral capsule 1 cap(s), Oral, Daily, 0 Refill(s), Start Date: 09/09/18 7:57:00 AM CDT Start Date: 09/09/18 Stop Date: 12/20/18 Status: Discontinued traMADol 50 mg oral tablet 1 tab(s), Oral, q4hr interval, PRN PRN as needed for pain, # 12 tab(s), 0 Refill(s), Start Date: 03/03/23 1:54:00 PM CDT, Pharmacy: [facility], 173, cm, 11/18/22 13:25:00 ACADEMIC ADVISEMENT DIRECTOR, Height/Length Measured, 89.5, kg, 03/03/23 12:25:00 CDT, Weight Dosing Start Date: 03/03/23 Status: Ordered vancomycin 1 g intravenous injection IV, q12hr interval, prescribed by Dr Perdue, 0 Refill(s), Start Date: 10/21/18 8:45:00 AM ACADEMIC ADVISEMENT DIRECTOR Start Date: 10/21/18 Stop Date: 11/16/18 Status: Completed Zinc 140 mg (as elemental zinc 50 mg) oral tablet 1 tab(s), Oral, Daily, # 90 tab(s), 0 Refill(s), Start Date: 09/30/22 3:48:00 PM ACADEMIC ADVISEMENT DIRECTOR Start Date: 09/30/22 Status: Ordered Immunizations Given [...]
--- OUTSIDE RECORDS SUMMARY | 2024-11-23 00:08 | XMS_ITS | Summary of Care ---
Author Organization Internal Medicine [facility] Address [address] [place] [address] Care Team Providers Care Stars Analytical Lead Name Role Phone Froylan Nash Primary Care Physician Encounter Date(s): 11/24/22 - 11/24/22 Internal Medicine [facility] [address] [place] [address]- [place] Discharge Disposition: Discharged to [...] tablet 0 Refill(s), Start Date: 11/18/22 13:27:00 PULMONARY PHYSICAL THERAPIST Start Date: 11/18/22 Status: Ordered baclofen 10 [...] tab(s), 0 Refill(s), Start Date: 11/09/18 18:34:00 PULMONARY PHYSICAL THERAPIST, Pharmacy: [facility] Start Date: 11/09/18 Stop Date: 12/16/18 Status: Completed ciprofloxacin 750 mg oral tablet 1 tab(s), Oral, q12hr, 2h away from dairy, X 14 days, # 28 tab(s), 2 Refill(s), Start Date: 09/19/18 14:21:00 PULMONARY PHYSICAL THERAPIST, Pharmacy: [facility] Start Date: 09/19/18 Stop Date: 11/09/18 [...] 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 daily 3 months 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, # 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, 0 Refill(s), 03/16/19 18:45:00 [...] tab(s), 3 Refill(s), Start Date: 12/20/18 13:37:00 PULMONARY PHYSICAL THERAPIST, Pharmacy: [facility] Start Date: 12/20/18 Stop Date: 09/30/22 [...] tab(s), 0 Refill(s), Start Date: 11/16/18 11:41:00 PULMONARY PHYSICAL THERAPIST,Pharmacy: [facility] Start Date: 11/16/18 Stop Date: 12/02/18 Status: Completed Medrol 4 mg oral tablet 1 packet(s), Oral, ONETIME, as directed on package labeling, # 21 tab(s), 0 Refill(s), Start Date: 11/18/22 13:39:00 PULMONARY PHYSICAL THERAPIST, Pharmacy: [facility], 173, cm, 11/18/22 13:25:00 PULMONARY PHYSICAL THERAPIST, Height/Length Measured, 86.3, kg, 11/18/22 13:27:00 PULMONARY PHYSICAL THERAPIST, Weight Dosing Start Date: 11/18/22 Status: Ordered MiraLax oral powder for reconstitution 17 gm, Oral, Daily, Dissolve in water before taking, # 255 gm, 0 Refill(s), Start Date: 05/21/18 10:05:00 CDT, Pharmacy: [facility] [id number] Start Date: 05/21/18 Status: Ordered MS Contin 15 mg oral tablet, extended release 2 tab(s), Oral, q12hr, # 28 tab(s), 0 Refill(s), Start Date: 05/21/18 10:04:00 CDT, Pharmacy: [facility] [id number] Start Date: 05/21/18 Stop Date: 09/09/18 Status: Completed MS Contin 30 mg oral tablet, extended release 1 tab(s), Oral, q12hr interval, 0 Refill(s), Start Date: 09/12/18 9:49:00 CDT Start Date: 09/12/18 Stop Date: 06/16/19 Status: Completed Multi-Day Plus Minerals oral tablet 1 tab(s), Oral, Daily, # 30 tab(s), 0 Refill(s), Start Date: 09/30/22 15:49:00 PULMONARY PHYSICAL THERAPIST Start Date: 09/30/22 Status: Ordered oxycodone-acetaminophen 10 mg-325 mg oral tablet 0 Refill(s), Start Date: 11/18/22 13:27:00 PULMONARY PHYSICAL THERAPIST Start Date: 11/18/22 Status: Ordered oxyCODONE-acetaminophen 10 [...] 0Refill(s), Start Date: 05/17/18 16:24:00 CDT, Pharmacy: [facility] [id number] Start Date: 05/17/18 Stop Date: 09/09/18 Status: Completed Percocet 5/325 oral tablet See Instructions, PRN PRN for pain, 1 tab(s) Oral q6hr not to exceed 4000 mg acetaminophen per day,# 60 tab(s), 0 Refill(s), Start Date: 09/14/18 9:23:00 CDT, Pharmacy: [facility] Start Date: 09/14/18 Stop Date: 06/16/19 Status: Completed Senokot S 50 mg-8.6 mg oral tablet 1 tab(s), Oral, BID, X 10 days, # 20 tab(s), 0 Refill(s), Start Date: 05/21/18 10:05:00 CDT, Pharmacy: [facility] [id number] Start Date: 05/21/18 Stop Date: 05/31/18 Status: Completed tamsulosin 0.4 mg oral capsule 1 cap(s), Oral, Daily, # 90 cap(s), 3 Refill(s), Start Date: 12/20/18 13:38:00 PULMONARY PHYSICAL THERAPIST, [facility] Start Date: 12/20/18 Stop Date: 09/30/22 Status: Completed tamsulosin 0.4 mg oral capsule 1 cap(s), Oral, Daily, 0 Refill(s), Start Date: 09/09/18 7:57:00 CDT Start Date: 09/09/18 Stop Date: 12/20/18 Status: Discontinued vancomycin 1 g intravenous injection IV, q12hr interval, prescribed by Dr Perdue, 0 Refill(s), Start Date: 10/21/18 8:45:00 PULMONARY PHYSICAL THERAPIST Start Date: 10/21/18 Stop Date: 11/16/18 Status: Completed Zinc 140 mg (as elemental zinc 50 mg) oral tablet 1 tab(s), Oral, Daily, # 90 tab(s), 0 Refill(s), Start Date: 09/30/22 15:48:00 PULMONARY PHYSICAL THERAPIST Start Date: 09/30/22 Status: Ordered Immunizations Given [...]
--- OUTSIDE RECORDS SUMMARY | 2024-11-23 00:08 | XMS_ITS | Continuity of Care Document ---
Author Organization [facility] Address [address] [facility] [address] [place] [address] Care Team Providers Care Life Care Planner Name Role Phone Carlos Enrique Obando Primary Care Physician [phone] Encounter Date(s): 10/02/24 - 10/02/24 Family [facility] [address] [place] [address]- Discharge Disposition: Discharged to Home or Self [...] Start Date: 04/22/23 10:25:00 AM CDT, Pharmacy: [facility], 173, cm, 04/09/23 15:48:00 CDT, [...] Start Date: 03/09/23 10:48:00 AM CDT, Pharmacy: [facility], 173, cm, 03/09/23 10:20:00 CDT, Height/Length Measured, 89.5, kg, 03/09/23 10:22:00 CDT, Weight Dosing Start Date: 03/09/23 Stop Date: 08/27/23 Status: Completed amLODIPine 5 mg oral tablet 1 tab(s), Oral, Daily, # 90 tab(s), 3 Refill(s), Start Date: 08/27/23 8:41:00 AM CDT, Pharmacy: [facility], 173, cm, 04/09/23 15:48:00 CDT, [...] Start Date: 07/26/24 3:47:00 PM CDT, [id number], 173, cm, 07/26/24 15:14:00 CDT, Height/Length Measured, [...] Start Date: 07/07/24 11:58:00 AM CDT, Pharmacy: [facility] #[id number], 173, cm, 07/07/24 9:24:00 CDT, Height/Length Measured, 88.2, kg, 07/07/24 9:25:00 CDT, Weight Dosing Start Date: 07/07/24 Status: Ordered baclofen 10 mg oral tablet 1 tab(s), Oral, TID, # 30 tab(s), 0 Refill(s), Start Date: 03/09/23 10:49:00 AM CDT, Pharmacy: [facility], 173, cm, 03/09/23 10:20:00 CDT, [...] 0 Refill(s), Start Date: 11/18/22 1:27:00 PM DRUM STENCILER Start Date: 11/18/22 Stop Date: 03/09/23 Status: Discontinued baclofen 10 mg oral tablet 1 tab(s), Oral, TID, PRN PRN for pain, 0 Refill(s), Start Date: 05/15/18 11:15:00 PM CDT Start Date: 05/15/18 Stop Date: 06/16/19 Status: Completed baclofen 10 mg tablet baclofen 10 mg tablet, 1 tab(s), Oral, TID, # 30 tab(s), 2 Refill(s), Pharmacy: [facility], 173, cm, 04/09/23 15:48:00 CDT, Height/Length Measured, 87.6, kg, 04/09/23 15:50:00 CDT, Weight Dosing Start Date: 06/08/23 Stop Date: 03/31/24 Status: Completed baclofen 10 mg tablet baclofen 10 mg tablet, 1 tab(s), Oral, TID, # 30 tab(s), 2 Refill(s), Pharmacy: [facility], 173, cm, 04/09/23 15:48:00 CDT, Height/Length Measured, 87.6, kg, 04/09/23 15:50:00 CDT, Weight Dosing Start Date: 06/18/23 Stop Date: 03/31/24 Status: Completed carisoprodol 250 mg oral tablet 1 tab(s), Oral, BID, # 60 tab(s), 5 Refill(s), Start Date: 07/26/24 3:47:00 PM CDT, Pharmacy: [facility] #[id number], 173, cm, 07/26/24 15:14:00 CDT, Height/Length Measured, [...] 0 Refill(s), Start Date: 11/09/18 6:34:00 PM DRUM STENCILER, Pharmacy: [facility] Start Date: 11/09/18 Stop Date: 12/16/18 Status: Completed ciprofloxacin 750 mg oral tablet 1 tab(s), Oral, q12hr, 2h away from dairy, X 14 days, # 28 tab(s), 2 Refill(s), Start Date: :21:00 PM DRUM STENCILER, Pharmacy: [facility] Start Date: 09/19/18 Stop Date: 11/09/18 [...] 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 daily 3 months 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, # 1 boxes, 0 Refill(s), 03/16/19 6:45:00 [...] 3 Refill(s), Start Date: 12/20/18 1:37:00 PM DRUM STENCILER, Pharmacy: [facility] Start Date: 12/20/18 Stop Date: 09/30/22 [...] Start Date: 04/03/24 11:55:00 AM CDT, Pharmacy: [facility], 173, cm, 03/31/24 10:46:00 CDT, [...] Start Date: 04/19/24 10:19:00 AM CDT, Pharmacy: [facility] #[id number], 173, cm, 03/31/24 10:46:00 CDT, Height/Length Measured, 88.2, kg, 03/31/24 10:51:00 CDT, Weight Dosing Start Date: 04/19/24 Stop Date: 06/21/24 Status: Completed gabapentin 300 mg oral capsule 1 cap(s), Oral, TID, # 90 cap(s), 11 Refill(s), Start Date: 07/07/24 10:05:00 AM CDT, Pharmacy: [facility] #[id number], 173, cm, 07/07/24 9:24:00 CDT, Height/Length Measured, 88.2, kg, 07/07/24 9:25:00 CDT, Weight Dosing Start Date: 07/07/24 Stop Date: 07/11/24 Status: Discontinued hydrocodone-acetaminophen 5 mg-325 mg oral tablet See Instructions, 1/2 to 1 tab(s) Oral TID, # 60 tab(s), 0 Refill(s), Start Date: 07/11/24 2:53:00 PM CDT, Pharmacy: [facility] #[id number], 173, cm, 07/07/24 9:24:00 CDT, Height/Length Measured,88.2, kg, 07/07/24 9:25:00 CDT, Weight Dosing Start Date: 07/11/24 Stop Date: 07/26/24 Status: Discontinued ibuprofen 600 mg oral tablet 1 tab(s), Oral, QID, PRN PRN for pain, with food or milk, # 30 tab(s), 0 Refill(s), Start Date: 03/03/23 1:53:00 PM CDT, Pharmacy: [facility], 173, cm, 11/18/22 13:25:00 DRUM STENCILER, Height/Length Measured, 89.5, kg, 03/03/23 12:25:00 CDT, [...] Start Date: 07/07/24 10:05:00 AM CDT, [id number], 173, cm, 07/07/24 9:24:00 CDT, Height/Length Measured, [...] Start Date: 03/31/24 11:26:00 AM CDT, Pharmacy: [facility], 173, cm, 03/31/24 10:46:00 CDT, Height/Length Measured, 88.2, kg, 03/31/24 10:51:00 CDT, Weight Dosing Start Date: 03/31/24 Stop Date: 04/11/24 Status: Completed levoFLOXacin 500 mg oral tablet 1 tab(s), Oral, Daily, For chronic recurrent sinusitis, X 10 days, # 10 tab(s), 0 Refill(s), Start Date: 04/11/24 3:29:00 PM CDT, Pharmacy: [facility], 173, cm, 03/31/24 10:46:00 CDT, Height/Length Measured, 88.2, kg, 03/31/24 10:51:00 CDT, Weight Dosing Start Date: 04/11/24 Stop Date: 04/19/24 Status: Completed levoFLOXacin 500 mg oral tablet 1 tab(s), Oral, Daily, For chronic recurrent sinusitis, # 10 tab(s), 0 Refill(s), Start Date: 04/19/24 10:19:00 AM CDT, Pharmacy: [facility] #[id number], 173, cm, 03/31/24 10:46:00 CDT, Height/Length Measured, 88.2, kg, 03/31/24 10:51:00 CDT, Weight Dosing Start Date: 04/19/24 Stop Date: 06/06/24 Status: Completed linezolid 600 mg oral tablet 1 tab(s), Oral, q12hr, generic please, # 28 tab(s), 0 Refill(s), Start Date: 11/16/18 11:41:00 AM DRUM STENCILER, Pharmacy: [facility] Start Date: 11/16/18 Stop Date: 12/02/18 Status: Completed Medrol 4 mg oral tablet 1 packet(s), Oral, ONETIME, as directed on package labeling, # 21 tab(s), 0 Refill(s), Start Date: 11/18/22 1:39:00 PM DRUM STENCILER, Pharmacy: [facility], 173, cm, 11/18/22 13:25:00 DRUM STENCILER, Height/Length Measured, 86.3, kg, 11/18/22 13:27:00 DRUM STENCILER, Weight Dosing Start Date: 11/18/22 Stop Date: 03/09/23 Status: Completed metFORMIN 500 mg oral tablet 0.5 tab(s), Oral, BID, # 30 tab(s), 11 Refill(s), Start Date: 04/03/24 11:56:00 AM CDT, Pharmacy: [facility], 173, cm, 03/31/24 10:46:00 CDT, Height/Length Measured, 88.2, kg, 03/31/24 10:51:00 CDT, Weight Dosing Start Date: 04/03/24 Stop Date: 04/19/24 Status: Completed metFORMIN 500 mg oral tablet 0.5 tab(s), Oral, BID, # 30 tab(s), 11 Refill(s), Start Date: 04/19/24 10:19:00 AM CDT, Pharmacy: [facility] #[id number], 173, cm, 03/31/24 10:46:00 CDT, Height/Length Measured, 88.2, kg, 03/31/2410:51:00 CDT, Weight Dosing Start Date: 04/19/24 Stop Date: 06/21/24 Status: Completed metFORMIN 500 mg oral tablet 1 tab(s), Oral, BID, # 180 tab(s), 3 Refill(s), Start Date: 07/07/24 11:58:00 AM CDT, Pharmacy: [facility] #[id number], 173, cm, 07/07/24 9:24:00 CDT, Height/Length Measured, 88.2, kg, 07/07/24 9:25:00 CDT, Weight Dosing Start Date: 07/07/24 Status: Ordered MiraLax oral powder for reconstitution 17 gm, Oral, Daily, Dissolve in water before taking, # 255 gm, 0 Refill(s), Start Date: 05/21/18 10:05:00 AM CDT, Pharmacy: [facility] [id number] Start Date: 05/21/18 Stop Date: 03/31/24 Status: Completed MS Contin 15 mg oral tablet, extended release 2 tab(s), Oral, q12hr, # 28 tab(s), 0 Refill(s), Start Date: 05/21/18 10:04:00 AM CDT, Pharmacy: [facility] [id number] Start Date: 05/21/18 Stop Date: 09/09/18 Status: Completed MS Contin 30 mg oral tablet, extended release 1 tab(s), Oral, q12hr interval, 0 Refill(s), Start Date: 09/12/18 9:49:00 AM CDT Start Date: 09/12/18 Stop Date: 06/16/19 Status: Completed Multi-Day Plus Minerals oral tablet 1 tab(s), Oral, Daily, # 30 tab(s), 0 Refill(s), Start Date: 09/30/22 3:49:00 PM DRUM STENCILER Start Date: 09/30/22 Stop Date: 06/21/24 Status: Completed Narcan 4 mg/0.1 mL nasal spray 1 spray(s), Nasal, ONETIME, # 2 EA, 11 Refill(s), Start Date: 07/07/24 10:15:00 AM CDT, Pharmacy: [facility] #[id number], 173, cm, 07/07/24 9:24:00 CDT, Height/Length Measured, 88.2, kg, :25:00 CDT, Weight Dosing Start Date: 07/07/24 Stop Date: 07/26/24 Status: Discontinued Narcan 4 mg/0.1 mL nasal spray 1 spray(s), Nasal, ONETIME, # 2 EA, 0 Refill(s), Start Date: 08/25/24 3:51:00 PM CDT, Pharmacy: [id number], 173, cm, 07/26/24 15:14:00 CDT, Height/Length Measured, 88, kg, 08/17/24 7:54:00 CDT, Weight Dosing Start Date: 08/25/24 Status: Ordered oxycodone-acetaminophen 10 mg-325 mg oral tablet 0 Refill(s), Start Date: 11/18/22 1:27:00 PM DRUM STENCILER Start Date: 11/18/22 Stop Date: 04/09/23 Status: [...] Start Date: 09/06/24 2:38:00 PM CDT, Pharmacy: [id number], 173, cm, 09/06/24 [...] Start Date: 09/13/24 12:13:00 PM CDT, Pharmacy: [id number], 173, cm, 09/13/24 8:29:00 CDT, Height/Length Measured, 85, kg, 09/13/24 8:32:00 CDT, Weight Dosing Start Date: 09/13/24 Status: Ordered oxycodone-acetaminophen 5 mg-325 mg oral tablet 1 tab(s), Oral, TID, PRN PRN pain moderate 4-7, # 42 tab(s), 0 Refill(s), Start Date: 07/07/24 10:05:00 AM CDT, Pharmacy: [facility] #[id number], 173, cm, 07/07/24 9:24:00 CDT, Height/Length Measured, 88.2, kg, 07/07/24 9:25:00 CDT, Weight Dosing Start Date: 07/07/24 Stop Date: 07/11/24 Status: Discontinued oxycodone-acetaminophen 5 mg-325 mg oral tablet 1 tab(s), Oral, TID, PRN PRN pain severe 8-10, # 90 tab(s), 0 Refill(s), Start Date: 08/25/24 10:49:00 AM CDT, Pharmacy: [id number], 173, cm, 07/26/24 [...] Start Date: 05/17/18 4:24:00 PM CDT, [id number] Start Date: 05/17/18 Stop Date: 09/09/18 Status: Completed Percocet 5/325 oral tablet See Instructions, PRN PRN for pain, 1 tab(s) Oral q6hr not to exceed 4000 mg acetaminophen per day,# 60 tab(s), 0 Refill(s), Start Date: 09/14/18 9:23:00 AM CDT, Pharmacy: [facility] Start Date: 09/14/18 Stop Date: 06/16/19 Status: Completed predniSONE 10 mg oral tablet 3 tab(s), Oral, BID, For inflammation and pain, # 84 tab(s), 0 Refill(s), Start Date: 08/10/24 9:14:00 AM CDT, Pharmacy: [id number], 173, cm, 07/26/24 15:14:00 CDT, Height/Length Measured, 88, kg, 07/26/24 15:24:00 CDT, Weight Dosing Start Date: 08/10/24 Stop Date: 08/25/24 Status: Discontinued predniSONE 10 mg oral tablet 3 tab(s), Oral, BID, For inflammation and pain, # 84 tab(s), 0 Refill(s), Start Date: 07/26/24 3:47:00 PM CDT, [id number], 173, cm, 07/26/24 15:14:00 CDT, Height/Length Measured, [...] 05/21/18 10:05:00 AM CDT, Pharmacy: [facility] [id number] Start Date: 05/21/18 Stop Date: 05/31/18 Status: Completed tamsulosin 0.4 mg oral capsule 1 cap(s), Oral, Daily, # 90 cap(s), 3 Refill(s), Start Date: 12/20/18 1:38:00 PM [employer], Pharmacy: [facility] Start Date: 12/20/18 Stop Date: 09/30/22 Status: Completed tamsulosin 0.4 mg oral capsule 1 cap(s), Oral, Daily, 0 Refill(s), Start Date: 09/09/18 7:57:00 AM CDT Start Date: 09/09/18 Stop Date: 12/20/18 Status: Discontinued traMADol 50 mg oral tablet 1 tab(s), Oral, q4hr interval, PRN PRN as needed for pain, # 12 tab(s), 0 Refill(s), Start Date: 03/03/23 1:54:00 PM CDT, Pharmacy: [facility], 173, cm, 11/18/22 13:25:00 [employer]IL[employer], Height/Length Measured, 89.5, kg, 03/03/23 12:25:00 CDT, Weight Dosing Start Date: 03/03/23 Stop Date: 03/31/24 Status: Completed vancomycin 1 g intravenous injection IV, q12hr interval, prescribed by Dr Perdue, 0 Refill(s), Start Date: 10/21/18 8:45:00 AM [employer] Start Date: 10/21/18 Stop Date: 11/16/18 Status: Completed Zinc 140 mg (as elemental zinc 50 mg) oral tablet 1 tab(s), Oral, Daily, # 90 tab(s), 0 Refill(s), Start Date: 09/30/22 3:48:00 PM [employer] Start Date: 09/30/22 Stop Date: 06/21/24 Status: [...] Elbow surgery from elbow to forearm 14left [id number] procedure 16left 17LT Rotator Cuff Repair 18right 19RT Tendon Repair 20right side 21RT Wrist Surgery- Frzn wrist- 2 screws Social History Social History Type Response Sex Male Patient Care team information Personnel Name: Carlos Enrique Obando MD Address: Address: [address] [place] [address]
--- OUTSIDE RECORDS SUMMARY | 2024-11-23 00:08 | XMS_ITS | Continuity of Care Document ---
Author Organization [facility] Address [address] [facility] [address] [place] [address] Care Team Providers [employer] Education Director Name Role Phone Carlos Enrique Obando Primary Care Physician [phone] Encounter Date(s): 08/07/24 - 08/07/24 Family Medicine [facility] [address] [place] [address]- Discharge Disposition: Discharged to Home or Self [...] Start Date: 04/22/23 10:25:00 AM CDT, Pharmacy: [facility], 173, cm, 04/09/23 15:48:00 CDT, [...] Start Date: 03/09/23 10:48:00 AM CDT, Pharmacy: [facility], 173, cm, 03/09/23 10:20:00 CDT, Height/Length Measured, 89.5, kg, 03/09/23 10:22:00 CDT, Weight Dosing Start Date: 03/09/23 Stop Date: 08/27/23 Status: Completed amLODIPine 5 mg oral tablet 1 tab(s), Oral, Daily, # 90 tab(s), 3 Refill(s), Start Date: 08/27/23 8:41:00 AM CDT, Pharmacy: [facility], 173, cm, 04/09/23 15:48:00 CDT, [...] Start Date: 07/26/24 3:47:00 PM CDT, Pharmacy: [facility] #[id number], 173, cm, 07/26/24 15:14:00 CDT, Height/Length Measured, [...] Start Date: 07/07/24 11:58:00 AM CDT, Pharmacy: [facility] #[id number], 173, cm, 07/07/24 9:24:00 CDT, Height/Length Measured, 88.2, kg, 07/07/24 9:25:00 CDT, Weight Dosing Start Date: 07/07/24 Status: Ordered baclofen 10 mg oral tablet 1 tab(s), Oral, TID, # 30 tab(s), 0 Refill(s), Start Date: 03/09/23 10:49:00 AM CDT, [facility], 173, cm, 03/09/23 10:20:00 CDT, Height/Length Measured, 89.5, kg, 03/09/23 10:22:00 CDT,Weight Dosing Start Date: 03/09/23 Stop Date: 04/22/23 Status: Completed baclofen 10 mg oral tablet 1 tab(s), Oral, TID, # 30 tab(s), 1 Refill(s), Start Date: 04/22/23 11:37:00 AM CDT, Pharmacy: [facility], 173, cm, 04/09/23 15:48:00 CDT, Height/Length Measured, 87.6, kg, 04/09/23 15:50:00 CDT, Weight Dosing Start Date: 04/22/23 Stop Date: 03/31/24 Status: Completed baclofen 10 mg oral tablet 0 Refill(s), Start Date: 11/18/22 1:27:00 PM [facility] Start Date: 11/18/22 Stop Date: 03/09/23 Status: Discontinued baclofen 10 mg oral tablet 1 tab(s), Oral, TID, PRN PRN for pain, 0 Refill(s), Start Date: 05/15/18 11:15:00 PM CDT Start Date: 05/15/18 Stop Date: 06/16/19 Status: Completed baclofen 10 mg tablet baclofen 10 mg tablet, 1 tab(s), Oral, TID, # 30 tab(s), 2 Refill(s), Pharmacy: [facility], 173, cm, 04/09/23 15:48:00 CDT, Height/Length Measured, 87.6, kg, 04/09/23 15:50:00 CDT, Weight Dosing Start Date: 06/08/23 Stop Date: 03/31/24 Status: Completed baclofen 10 mg tablet baclofen 10 mg tablet, 1 tab(s), Oral, TID, # 30 tab(s), 2 Refill(s), Pharmacy: [facility], 173, cm, 04/09/23 15:48:00 CDT, Height/Length Measured, 87.6, kg, 04/09/23 15:50:00 CDT, Weight Dosing Start Date: 06/18/23 Stop Date: 03/31/24 Status: Completed carisoprodol 250 mg oral tablet 1 tab(s), Oral, BID, # 60 tab(s), 5 Refill(s), Start Date: 07/26/24 3:47:00 PM CDT, Pharmacy: [facility] #[id number], 173, cm, 07/26/24 15:14:00 CDT, Height/Length Measured, [...] 0 Refill(s), Start Date: 11/09/18 6:34:00 PM [facility], Pharmacy: [facility] Start Date: 11/09/18 Stop Date: 12/16/18 Status: Completed ciprofloxacin 750 mg oral tablet 1 tab(s), Oral, q12hr, 2h away from dairy, X 14 days, # 28 tab(s), 2 Refill(s), Start Date: :21:00 PM [facility], Pharmacy: [facility] Start Date: 09/19/18 Stop Date: 11/09/18 [...] 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 daily 3 months 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, # 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, 0 Refill(s), [...] 3 Refill(s), Start Date: 12/20/18 1:37:00 PM [facility], Pharmacy: [facility] Start [...] Date: 04/03/24 11:55:00 AM CDT, Pharmacy: [facility], 173, cm, 03/31/24 10:46:00 CDT, Height/Length [...] Start Date: 04/19/24 10:19:00 AM CDT, [id number], 173, cm, 03/31/24 10:46:00 CDT, Height/Length Measured, 88.2, kg, 03/31/24 10:51:00 CDT, Weight Dosing Start Date: 04/19/24 Stop Date: 06/21/24 Status: Completed gabapentin 300 mg oral capsule 1 cap(s), Oral, TID, # 90 cap(s), 11 Refill(s), Start Date: 07/07/24 10:05:00 AM CDT, Pharmacy: [facility] #[id number], 173, cm, 07/07/24 9:24:00 CDT, Height/Length Measured, 88.2, kg, 07/07/24 9:25:00 CDT, Weight Dosing Start Date: 07/07/24 Stop Date: 07/11/24 Status: Discontinued hydrocodone-acetaminophen 5 mg-325 mg oral tablet See Instructions, /2 to 1 tab(s) Oral TID, # 60 tab(s), 0 Refill(s), Start Date: 07/11/24 2:53:00 PM CDT, [id number], 173, cm, 07/07/24 9:24:00 CDT, Height/Length Measured,88.2, kg, 07/07/24 9:25:00 CDT, Weight Dosing Start Date: 07/11/24 Stop Date: 07/26/24 Status: Discontinued ibuprofen 600 mg oral tablet 1 tab(s), Oral, QID, PRN PRN for pain, with food or milk, # 30 tab(s), 0 Refill(s), Start Date: 03/03/23 1:53:00 PM CDT, Pharmacy: [facility], 173, cm, 11/18/22 13:25:00 [facility] [employer], Height/Length Measured, 89.5, kg, 03/03/23 12:25:00 CDT, [...] Start Date: 07/07/24 10:05:00 AM CDT, Pharmacy: [facility] #[id number], 173, cm, 07/07/24 9:24:00 CDT, Height/Length Measured, [...] Start Date: 03/31/24 11:26:00 AM CDT, Pharmacy: [facility], 173, cm, 03/31/24 10:46:00 CDT, Height/Length Measured, 88.2, kg, 03/31/24 10:51:00 CDT, Weight Dosing Start Date: 03/31/24 Stop Date: 04/11/24 Status: Completed levoFLOXacin 500 mg oral tablet 1 tab(s), Oral, Daily, For chronic recurrent sinusitis, X 10 days, # 10 tab(s), 0 Refill(s), Start Date: 04/11/24 3:29:00 PM CDT, Pharmacy: [facility], 173, cm, 03/31/24 10:46:00 CDT, Height/Length Measured, 88.2, kg, 03/31/24 10:51:00 CDT, Weight Dosing Start Date: 04/11/24 Stop Date: 04/19/24 Status: Completed levoFLOXacin 500 mg oral tablet 1 tab(s), Oral, Daily, For chronic recurrent sinusitis, # 10 tab(s), 0 Refill(s), Start Date: 04/19/24 10:19:00 AM CDT, Pharmacy: [facility] #[id number], 173, cm, 03/31/24 10:46:00 CDT, Height/Length Measured, 88.2, kg, 03/31/24 10:51:00 CDT, Weight Dosing Start Date: 04/19/24 Stop Date: 06/06/24 Status: Completed linezolid 600 mg oral tablet 1 tab(s), Oral, q12hr, generic please, # 28 tab(s), 0 Refill(s), Start Date: 11/16/18 11:41:00 AM [facility], Pharmacy: [facility] Start Date: 11/16/18 Stop Date: 12/02/18 Status: Completed Medrol 4 mg oral tablet 1 packet(s), Oral, ONETIME, as directed on package labeling, # 21 tab(s), 0 Refill(s), Start Date: 11/18/22 1:39:00 PM [facility], Pharmacy: [facility], 173, cm, 11/18/22 13:25:00 [facility], Height/Length Measured, 86.3, kg, 11/18/22 13:27:00 [facility], Weight Dosing Start Date: 11/18/22 Stop Date: 03/09/23 Status: Completed metFORMIN 500 mg oral tablet 0.5 tab(s), Oral, BID, # 30 tab(s), 11 Refill(s), Start Date: 04/03/24 11:56:00 AM CDT, Pharmacy: [facility], 173, cm, 03/31/24 10:46:00 CDT, Height/Length Measured, 88.2, kg, 03/31/24 10:51:00 CDT, Weight Dosing Start Date: 04/03/24 Stop Date: 04/19/24 Status: Completed metFORMIN 500 mg oral tablet 0.5 tab(s), Oral, BID, # 30 tab(s), 11 Refill(s), Start Date: 04/19/24 10:19:00 AM CDT, [id number], 173, cm, 03/31/24 10:46:00 CDT, Height/Length Measured, 88.2, kg, 03/31/2410:51:00 CDT, Weight Dosing Start Date: 04/19/24 Stop Date: 06/21/24 Status: Completed metFORMIN 500 mg oral tablet 1 tab(s), Oral, BID, # 180 tab(s), 3 Refill(s), Start Date: 07/07/24 11:58:00 AM CDT, Pharmacy: [facility] #[id number], 173, cm, 07/07/24 9:24:00 CDT, Height/Length Measured, 88.2, kg, 07/07/24 9:25:00 CDT, Weight Dosing Start Date: 07/07/24 Status: Ordered MiraLax oral powder for reconstitution 17 gm, Oral, Daily, Dissolve in water before taking, # 255 gm, 0 Refill(s), Start Date: 05/21/18 10:05:00 AM CDT, Pharmacy: [id number] Start Date: 05/21/18 Stop Date: 03/31/24 Status: Completed MS Contin 15 mg oral tablet, extended release 2 tab(s), Oral, q12hr, # 28 tab(s), 0 Refill(s), Start Date: 05/21/18 10:04:00 AM CDT, Pharmacy: [id number] Start Date: 05/21/18 Stop Date: 09/09/18 Status: Completed MS Contin 30 mg oral tablet, extended release 1 tab(s), Oral, q12hr interval, 0 Refill(s), Start Date: 09/12/18 9:49:00 AM CDT Start Date: 09/12/18 Stop Date: 06/16/19 Status: Completed Multi-Day Plus Minerals oral tablet 1 tab(s), Oral, Daily, # 30 tab(s), 0 Refill(s), Start Date: 09/30/22 3:49:00 PM [facility] Start Date: 09/30/22 Stop Date: 06/21/24 Status: Completed Narcan 4 mg/0.1 mL nasal spray 1 spray(s), Nasal, ONETIME, # 2 EA, 11 Refill(s), Start Date: 07/07/24 10:15:00 AM CDT, Pharmacy: [facility] #[id number], 173, cm, 07/07/24 9:24:00 CDT, Height/Length Measured, 88.2, kg, 249:25:00 CDT, Weight Dosing Start Date: 07/07/24 Stop Date: 07/26/24 Status: Discontinued oxycodone-acetaminophen 10 mg-325 mg oral tablet 0 Refill(s), Start Date: 11/18/22 1:27:00 PM [facility] Start Date: 11/18/22 Stop Date: 04/09/23 Status: [...] Start Date: 07/07/24 10:05:00 AM CDT, Pharmacy: [facility] #[id number], 173, cm, 07/07/24 9:24:00 CDT, Height/Length Measured, [...] Start Date: 05/17/18 4:24:00 PM CDT, Pharmacy: [id number] Start Date: 05/17/18 Stop Date: 09/09/18 Status: Completed Percocet 5/325 oral tablet See Instructions, PRN PRN for pain, 1 tab(s) Oral q6hr not to exceed 4000 mg acetaminophen per day,# 60 tab(s), 0 Refill(s), Start Date: 09/14/18 9:23:00 AM CDT, Pharmacy: [facility] Start Date: 09/14/18 Stop Date: 06/16/19 Status: Completed predniSONE 10 mg oral tablet 3 tab(s), Oral, BID, For inflammation and pain, # 84 tab(s), 0 Refill(s), Start Date: 07/26/24 3:47:00 PM CDT, Pharmacy: [facility] #[id number], 173, cm, 07/26/24 15:14:00 CDT, Height/Length Measured, [...] Start Date: 05/21/18 10:05:00 AM CDT, Pharmacy: [id number] Start Date: 05/21/18 Stop Date: 05/31/18 Status: Completed tamsulosin 0.4 mg oral capsule 1 cap(s), Oral, Daily, # 90 cap(s), 3 Refill(s), Start Date: 12/20/18 1:38:00 PM [facility], Pharmacy: [facility] Start [...] Date: 03/03/23 1:54:00 PM CDT, Pharmacy: [facility], 173, cm, 11/18/22 13:25:00 [facility] [employer], Height/Length Measured, 89.5, kg, 03/03/23 12:25:00 CDT, Weight Dosing Start Date: 03/03/23 Stop Date: 03/31/24 Status: Completed vancomycin 1 g intravenous injection IV, q12hr interval, prescribed by Dr Perdue, 0 Refill(s), Start Date: 10/21/18 8:45:00 AM [facility] Start Date: 10/21/18 Stop Date: 11/16/18 Status: Completed Zinc 140 mg (as elemental zinc 50 mg) oral tablet 1 tab(s), Oral, Daily, # 90 tab(s), 0 Refill(s), Start Date: 09/30/22 3:48:00 PM [facility] Start Date: 09/30/22 Stop Date: 06/21/24 Status: [...] Elbow surgery from elbow to forearm 14left 20S0-S5 procedure 16left 17LT Rotator Cuff Repair 18right 19RT Tendon Repair 20right side 21RT Wrist Surgery- Frzn wrist- 2 screws Social History Social History Type Response Sex Male Patient Care team information Personnel Name: Carlos Enrique Obando MD Address: Address: [id number] [place] [address]
--- OUTSIDE RECORDS SUMMARY | 2024-11-23 00:08 | XMS_ITS | Continuity of Care Document ---
Author Organization [facility] Address [address] [facility] [address] [place] [address] Care Team Providers [facility] Name Role Phone Carlos Enrique Obando Primary Care Physician Encounter Date(s): 10/03/24 - 10/03/24 Family Medicine [facility] [address] [place] [address]- Discharge Disposition: 01 Discharged to Home or [...] Start Date: 04/22/23 10:25:00 AM CDT, Pharmacy: [facility], 173, cm, 04/09/23 15:48:00 CDT, Height/Length [...] Start Date: 03/09/23 10:48:00 AM CDT, Pharmacy: [facility], 173, cm, 03/09/23 10:20:00 CDT, Height/Length Measured, 89.5, kg, 03/09/23 10:22:00 CDT, Weight Dosing Start Date: 03/09/23 Stop Date: 08/27/23 Status: Completed amLODIPine 5 mg oral tablet 1 tab(s), Oral, Daily, # 90 tab(s), 3 Refill(s), Start Date: 08/27/23 8:41:00 AM CDT, Pharmacy: [facility], 173, cm, 04/09/23 15:48:00 CDT, [...] Start Date: 07/26/24 3:47:00 PM CDT, Pharmacy: [facility] #[id number], 173, cm, 07/26/24 15:14:00 CDT, Height/Length Measured, [...] Start Date: 07/07/24 11:58:00 AM CDT, Pharmacy: [facility] #[id number], 173, cm, 07/07/24 9:24:00 CDT, Height/Length Measured, 88.2, kg, 07/07/24 9:25:00 CDT, Weight Dosing Start Date: 07/07/24 Status: Ordered baclofen 10 mg oral tablet 1 tab(s), Oral, TID, # 30 tab(s), 0 Refill(s), Start Date: 03/09/23 10:49:00 AM CDT, Pharmacy: [facility], 173, cm, 03/09/23 10:20:00 CDT, Height/Length Measured, 89.5, kg, 03/09/23 10:22:00 CDT,Weight Dosing Start Date: 03/09/23 Stop Date: 04/22/23 Status: Completed baclofen 10 mg oral tablet 1 tab(s), Oral, TID, # 30 tab(s), 1 Refill(s), Start Date: 04/22/23 11:37:00 AM CDT, Pharmacy: [facility], 173, cm, 04/09/23 15:48:00 CDT, Height/Length Measured, 87.6, kg, 04/09/23 15:50:00 CDT, Weight Dosing Start Date: 04/22/23 Stop Date: 03/31/24 Status: Completed baclofen 10 mg oral tablet 0 Refill(s), Start Date: 11/18/22 1:27:00 PM [employer]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 Start Date: 11/18/22 Stop Date: 03/09/23 Status: Discontinued baclofen 10 mg oral tablet 1 tab(s), Oral, TID, PRN PRN for pain, 0 Refill(s), Start Date: 05/15/18 11:15:00 PM CDT Start Date: 05/15/18 Stop Date: 06/16/19 Status: Completed baclofen 10 mg tablet baclofen 10 mg tablet, 1 tab(s), Oral, TID, # 30 tab(s), 2 Refill(s), Pharmacy: [facility], 173, cm, 04/09/23 15:48:00 CDT, Height/Length Measured, 87.6, kg, 04/09/23 15:50:00 CDT, Weight Dosing Start Date: 06/08/23 Stop Date: 03/31/24 Status: Completed baclofen 10 mg tablet baclofen 10 mg tablet, 1 tab(s), Oral, TID, # 30 tab(s), 2 Refill(s), Pharmacy: [facility], 173, cm, 04/09/23 15:48:00 CDT, Height/Length Measured, 87.6, kg, 04/09/23 15:50:00 CDT, Weight Dosing Start Date: 06/18/23 Stop Date: 03/31/24 Status: Completed carisoprodol 250 mg oral tablet 1 tab(s), Oral, BID, # 60 tab(s), 5 Refill(s), Start Date: 07/26/24 3:47:00 PM CDT, Pharmacy: [facility] #[id number], 173, cm, 07/26/24 15:14:00 CDT, Height/Length Measured, [...] 0 Refill(s), Start Date: 11/09/18 6:34:00 PM 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, Pharmacy: [facility] Start Date: 11/09/18 Stop Date: 12/16/18 Status: Completed ciprofloxacin 750 mg oral tablet 1 tab(s), Oral, q12hr, 2h away from dairy, X 14 days, # 28 tab(s), 2 Refill(s), Start Date: :21:00 PM PARCEL WRAPPER, Pharmacy: [facility] Start Date: 09/19/18 Stop Date: 11/09/18 [...] 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, # 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, 0 Refill(s), 03/16/19 [...] 3 Refill(s), Start Date: 12/20/18 1:37:00 PM PARCEL WRAPPER, Pharmacy: [facility] Start Date: 12/20/18 Stop [...] Start Date: 04/03/24 11:55:00 AM CDT, Pharmacy: [facility], 173, cm, 03/31/24 10:46:00 CDT, Height/Length [...] Start Date: 04/19/24 10:19:00 AM CDT, Pharmacy: [facility] #[id number], 173, cm, 03/31/24 10:46:00 CDT, Height/Length Measured, 88.2, kg, 03/31/24 10:51:00 CDT, Weight Dosing Start Date: 04/19/24 Stop Date: 06/21/24 Status: Completed gabapentin 300 mg oral capsule 1 cap(s), Oral, TID, # 90 cap(s), 11 Refill(s), Start Date: 07/07/24 10:05:00 AM CDT, Pharmacy: [facility] #[id number], 173, cm, 07/07/24 9:24:00 CDT, Height/Length Measured, 88.2, kg, 07/07/24 9:25:00 CDT, Weight Dosing Start Date: 07/07/24 Stop Date: 07/11/24 Status: Discontinued hydrocodone-acetaminophen 5 mg-325 mg oral tablet See Instructions, 1/2 to 1 tab(s) Oral TID, # 60 tab(s), 0 Refill(s), Start Date: 07/11/24 2:53:00 PM CDT, Pharmacy: [facility] #[id number], 173, cm, 07/07/24 9:24:00 CDT, Height/Length Measured,88.2, kg, 07/07/24 9:25:00 CDT, Weight Dosing Start Date: 07/11/24 Stop Date: 07/26/24 Status: Discontinued ibuprofen 600 mg oral tablet 1 tab(s), Oral, QID, PRN PRN for pain, with food or milk, # 30 tab(s), 0 Refill(s), Start Date: 03/03/23 1:53:00 PM CDT, Pharmacy: [facility], 173, cm, 11/18/22 13:25:00 PARCEL WR[employer]PER, Height/Length Measured, 89.5, kg, 03/03/23 12:25:00 CDT, [...] Start Date: 07/07/24 10:05:00 AM CDT, [facility]: [id number], 173, cm, 07/07/24 9:24:00 CDT, Height/Length Measured, [...] Start Date: 03/31/24 11:26:00 AM CDT, Pharmacy: [facility], 173, cm, 03/31/24 10:46:00 CDT, Height/Length Measured, 88.2, kg, 03/31/24 10:51:00 CDT, Weight Dosing Start Date: 03/31/24 Stop Date: 04/11/24 Status: Completed levoFLOXacin 500 mg oral tablet 1 tab(s), Oral, Daily, For chronic recurrent sinusitis, X 10 days, # 10 tab(s), 0 Refill(s), Start Date: 04/11/24 3:29:00 PM CDT, Pharmacy: [facility], 173, cm, 03/31/24 10:46:00 CDT, Height/Length Measured, 88.2, kg, 03/31/24 10:51:00 CDT, Weight Dosing Start Date: 04/11/24 Stop Date: 04/19/24 Status: Completed levoFLOXacin 500 mg oral tablet 1 tab(s), Oral, Daily, For chronic recurrent sinusitis, # 10 tab(s), 0 Refill(s), Start Date: 04/19/24 10:19:00 AM CDT, Pharmacy: [facility] #[id number], 173, cm, 03/31/24 10:46:00 CDT, Height/Length Measured, 88.2, kg, 03/31/24 10:51:00 CDT, Weight Dosing Start Date: 04/19/24 Stop Date: 06/06/24 Status: Completed linezolid 600 mg oral tablet 1 tab(s), Oral, q12hr, generic please, # 28 tab(s), 0 Refill(s), Start Date: 11/16/18 11:41:00 AM PARCEL WRAPPER, Pharmacy: [facility] Start Date: 11/16/18 Stop Date: 12/02/18 Status: Completed Medrol 4 mg oral tablet 1 packet(s), Oral, ONETIME, as directed on package labeling, # 21 tab(s), 0 Refill(s), Start Date: 11/18/22 1:39:00 PM PARCEL WRAPPER, Pharmacy: [facility], 173, cm, 11/18/22 13:25:00 [employer]CEL WR[employer]PER, Height/Length Measured, 86.3, kg, 11/18/22 13:27:00 PARCEL WRAPPER, Weight Dosing Start Date: 11/18/22 Stop Date: 03/09/23 Status: Completed metFORMIN 500 mg oral tablet 0.5 tab(s), Oral, BID, # 30 tab(s), 11 Refill(s), Start Date: 04/03/24 11:56:00 AM CDT, Pharmacy: [facility], 173, cm, 03/31/24 10:46:00 CDT, Height/Length Measured, 88.2, kg, 03/31/24 10:51:00 CDT, Weight Dosing Start Date: 04/03/24 Stop Date: 04/19/24 Status: Completed metFORMIN 500 mg oral tablet 0.5 tab(s), Oral, BID, # 30 tab(s), 11 Refill(s), Start Date: 04/19/24 10:19:00 AM CDT, Pharmacy: [facility] #[id number], 173, cm, 03/31/24 10:46:00 CDT, Height/Length Measured, 88.2, kg, 03/31/2410:51:00 CDT, Weight Dosing Start Date: 04/19/24 Stop Date: 06/21/24 Status: Completed metFORMIN 500 mg oral tablet 1 tab(s), Oral, BID, # 180 tab(s), 3 Refill(s), Start Date: 07/07/24 11:58:00 AM CDT, Pharmacy: [facility] #[id number], 173, cm, 07/07/24 9:24:00 CDT, Height/Length Measured, 88.2, kg, 07/07/24 9:25:00 CDT, Weight Dosing Start Date: 07/07/24 Status: Ordered MiraLax oral powder for reconstitution 17 gm, Oral, Daily, Dissolve in water before taking, # 255 gm, 0 Refill(s), Start Date: 05/21/18 10:05:00 AM CDT, Pharmacy: [facility] [id number] Start Date: 05/21/18 Stop Date: 03/31/24 Status: Completed MS Contin 15 mg oral tablet, extended release 2 tab(s), Oral, q12hr, # 28 tab(s), 0 Refill(s), Start Date: 05/21/18 10:04:00 AM CDT, Pharmacy: [facility] [id number] Start Date: 05/21/18 Stop Date: 09/09/18 Status: Completed MS Contin 30 mg oral tablet, extended release 1 tab(s), Oral, q12hr interval, 0 Refill(s), Start Date: 09/12/18 9:49:00 AM CDT Start Date: 09/12/18 Stop Date: 06/16/19 Status: Completed Multi-Day Plus Minerals oral tablet 1 tab(s), Oral, Daily, # 30 tab(s), 0 Refill(s), Start Date: 09/30/22 3:49:00 PM PARCEL WRAPPER Start Date: 09/30/22 Stop Date: 06/21/24 Status: Completed Narcan 4 mg/0.1 mL nasal spray 1 spray(s), Nasal, ONETIME, # 2 EA, 11 Refill(s), Start Date: 07/07/24 10:15:00 AM CDT, Pharmacy: [facility] #[id number], 173, cm, 07/07/24 9:24:00 CDT, Height/Length Measured, 88.2, kg, :25:00 CDT, Weight Dosing Start Date: 07/07/24 Stop Date: 07/26/24 Status: Discontinued Narcan 4 mg/0.1 mL nasal spray 1 spray(s), Nasal, ONETIME, # 2 EA, 0 Refill(s), Start Date: 08/25/24 3:51:00 PM CDT, Pharmacy: [id number], 173, cm, 07/26/24 15:14:00 CDT, Height/Length Measured, 88, kg, 08/17/24 7:54:00 CDT, Weight Dosing Start Date: 08/25/24 Status: Ordered oxycodone-acetaminophen 10 mg-325 mg oral tablet 0 Refill(s), Start Date: 11/18/22 1:27:00 PM [employer]CEL WRAPPER Start Date: 11/18/22 Stop Date: 04/09/23 Status: [...] Start Date: 09/06/24 2:38:00 PM CDT, Pharmacy: [id number], 173, cm, 09/06/24 14:02:00 [...] Start Date: 09/13/24 12:13:00 PM CDT, Pharmacy: [id number], 173, cm, 09/13/24 8:29:00 CDT, Height/Length Measured, 85, kg, 09/13/24 8:32:00 CDT, Weight Dosing Start Date: 09/13/24 Status: Ordered oxycodone-acetaminophen 5 mg-325 mg oral tablet 1 tab(s), Oral, TID, PRN PRN pain moderate 4-7, # 42 tab(s), 0 Refill(s), Start Date: 07/07/24 10:05:00 AM CDT, Pharmacy: [facility] #[id number], 173, cm, 07/07/24 9:24:00 CDT, Height/Length Measured, 88.2, kg, 07/07/24 9:25:00 CDT, Weight Dosing Start Date: 07/07/24 Stop Date: 07/11/24 Status: Discontinued oxycodone-acetaminophen 5 mg-325 mg oral tablet 1 tab(s), Oral, TID, PRN PRN pain severe 8-10, # 90 tab(s), 0 Refill(s), Start Date: 08/25/24 10:49:00 AM CDT, Pharmacy: [id number], 173, cm, 07/26/24 15:14:00 [...] Start Date: 05/17/18 4:24:00 PM CDT, Pharmacy: [facility] [id number] Start Date: 05/17/18 Stop Date: 09/09/18 Status: Completed Percocet 5/325 oral tablet See Instructions, PRN PRN for pain, 1 tab(s) Oral q6hr not to exceed 4000 mg acetaminophen per day,# 60 tab(s), 0 Refill(s), Start Date: 09/14/18 9:23:00 AM CDT, Pharmacy: [facility] Start Date: 09/14/18 Stop Date: 06/16/19 Status: Completed predniSONE 10 mg oral tablet 3 tab(s), Oral, BID, For inflammation and pain, # 84 tab(s), 0 Refill(s), Start Date: 08/10/24 9:14:00 AM CDT, Pharmacy: [id number], 173, cm, 07/26/24 15:14:00 CDT, Height/Length Measured, 88, kg, 07/26/24 15:24:00 CDT, Weight Dosing Start Date: 08/10/24 Stop Date: 08/25/24 Status: Discontinued predniSONE 10 mg oral tablet 3 tab(s), Oral, BID, For inflammation and pain, # 84 tab(s), 0 Refill(s), Start Date: 07/26/24 3:47:00 PM CDT, Pharmacy: [facility] #[id number], 173, cm, 07/26/24 15:14:00 CDT, Height/Length Measured, [...] Start Date: 05/21/18 10:05:00 AM CDT, Pharmacy: [facility] [id number] Start Date: 05/21/18 Stop Date: 05/31/18 Status: Completed tamsulosin 0.4 mg oral capsule 1 cap(s), Oral, Daily, # 90 cap(s), 3 Refill(s), Start Date: 12/20/18 1:38:00 PM PARCEL WRAPPER, Pharmacy: [facility] Start Date: 12/20/18 Stop [...] Start Date: 03/03/23 1:54:00 PM CDT, Pharmacy: [facility], 173, cm, 11/18/22 13:25:00 PARCEL WRAPPER, Height/Length Measured, 89.5, kg, 03/03/23 12:25:00 CDT, Weight Dosing Start Date: 03/03/23 Stop Date: 03/31/24 Status: Completed vancomycin 1 g intravenous injection IV, q12hr interval, prescribed by Dr Perdue, 0 Refill(s), Start Date: 10/21/18 8:45:00 AM PARCEL WRAPPER Start Date: 10/21/18 Stop Date: 11/16/18 Status: Completed Zinc 140 mg (as elemental zinc 50 mg) oral tablet 1 tab(s), Oral, Daily, # 90 tab(s), 0 Refill(s), Start Date: 09/30/22 3:48:00 PM PARCEL WRAPPER Start Date: 09/30/22 Stop Date: 06/21/24 Status: [...] Elbow surgery from elbow to forearm 14left [id number] procedure 16left 17LT Rotator Cuff Repair 18right 19RT Tendon Repair 20right side 21RT Wrist Surgery- Frzn wrist- 2 screws Social History Social History Type Response Sex Male Patient Care team information Personnel Name: Carlos Enrique Obando MD Address: Address: [address] [place] [address]
--- OUTSIDE RECORDS SUMMARY | 2024-11-23 00:08 | XMS_ITS | Continuity of Care Document ---
Author Organization [facility] Address [address] [facility] [address] [place] [address] Care Team Providers Care Clarity Specialists Name Role Phone Carlos Enrique Obando Primary Care Physician Encounter Date(s): 08/28/24 - 08/28/24 Family Medicine [facility] [address] [place] [address]- Discharge Disposition: 01 Discharged to Home or [...] Start Date: 04/22/23 10:25:00 AM CDT, Pharmacy: [facility], 173, cm, 04/09/23 15:48:00 CDT, Height/Length [...] Start Date: 03/09/23 10:48:00 AM CDT, Pharmacy: [facility], 173, cm, 03/09/23 10:20:00 CDT, Height/Length Measured, 89.5, kg, 03/09/23 10:22:00 CDT, Weight Dosing Start Date: 03/09/23 Stop Date: 08/27/23 Status: Completed amLODIPine 5 mg oral tablet 1 tab(s), Oral, Daily, # 90 tab(s), 3 Refill(s), Start Date: 08/27/23 8:41:00 AM CDT, Pharmacy: [facility], 173, cm, 04/09/23 15:48:00 CDT, Height/Length [...] Start Date: 07/26/24 3:47:00 PM CDT, Pharmacy: [facility] #[id number], 173, cm, 07/26/24 15:14:00 CDT, Height/Length Measured, [...] Start Date: 07/07/24 11:58:00 AM CDT, Pharmacy: [facility] #[id number], 173, cm, 07/07/24 9:24:00 CDT, Height/Length Measured, 88.2, kg, 07/07/24 9:25:00 CDT, Weight Dosing Start Date: 07/07/24 Status: Ordered baclofen 10 mg oral tablet 1 tab(s), Oral, TID, # 30 tab(s), 0 Refill(s), Start Date: 03/09/23 10:49:00 AM CDT, Pharmacy: [facility], 173, cm, 03/09/23 10:20:00 CDT, Height/Length Measured, 89.5, kg, 03/09/23 10:22:00 CDT,Weight Dosing Start Date: 03/09/23 Stop Date: 04/22/23 Status: Completed baclofen 10 mg oral tablet 1 tab(s), Oral, TID, # 30 tab(s), 1 Refill(s), Start Date: 04/22/23 11:37:00 AM CDT, Pharmacy: [facility], 173, cm, 04/09/23 15:48:00 CDT, Height/Length Measured, 87.6, kg, 04/09/23 15:50:00 CDT, Weight Dosing Start Date: 04/22/23 Stop Date: 03/31/24 Status: Completed baclofen 10 mg oral tablet 0 Refill(s), Start Date: 11/18/22 1:27:00 PM ACQUISITIONS LIBRARIAN Start Date: 11/18/22 Stop Date: 03/09/23 Status: Discontinued baclofen 10 mg oral tablet 1 tab(s), Oral, TID, PRN PRN for pain, 0 Refill(s), Start Date: 05/15/18 11:15:00 PM CDT Start Date: 05/15/18 Stop Date: 06/16/19 Status: Completed baclofen 10 mg tablet baclofen 10 mg tablet, 1 tab(s), Oral, TID, # 30 tab(s), 2 Refill(s), Pharmacy: [facility], 173, cm, 04/09/23 15:48:00 CDT, Height/Length Measured, 87.6, kg, 04/09/23 15:50:00 CDT, Weight Dosing Start Date: 06/08/23 Stop Date: 03/31/24 Status: Completed baclofen 10 mg tablet baclofen 10 mg tablet, 1 tab(s), Oral, TID, # 30 tab(s), 2 Refill(s), Pharmacy: [facility], 173, cm, 04/09/23 15:48:00 CDT, Height/Length Measured, 87.6, kg, 04/09/23 15:50:00 CDT, Weight Dosing Start Date: 06/18/23 Stop Date: 03/31/24 Status: Completed carisoprodol 250 mg oral tablet 1 tab(s), Oral, BID, # 60 tab(s), 5 Refill(s), Start Date: 07/26/24 3:47:00 PM CDT, Pharmacy: [facility] #[id number], 173, cm, 07/26/24 15:14:00 CDT, Height/Length Measured, [...] 0 Refill(s), Start Date: 11/09/18 6:34:00 PM ACQUISITIONS LIBRARIAN, Pharmacy: [facility] Start Date: 11/09/18 Stop Date: 12/16/18 Status: Completed ciprofloxacin 750 mg oral tablet 1 tab(s), Oral, q12hr, 2h away from dairy, X 14 days, # 28 tab(s), 2 Refill(s), Start Date: :21:00 PM ACQUISITIONS LIBRARIAN, Pharmacy: [facility] Start Date: 09/19/18 Stop Date: 11/09/18 [...] 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 daily 3 months 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, # 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, 0 Refill(s), 03/16/19 6:45:00 [...] 3 Refill(s), Start Date: 12/20/18 1:37:00 PM ACQUISITIONS LIBRARIAN, Pharmacy: [facility] Start Date: 12/20/18 Stop Date: 09/30/22 [...] Start Date: 04/03/24 11:55:00 AM CDT, Pharmacy: [facility], 173, cm, 03/31/24 10:46:00 CDT, Height/Length Measured, [...] Start Date: 04/19/24 10:19:00 AM CDT, Pharmacy: [facility] #[id number], 173, cm, 03/31/24 10:46:00 CDT, Height/Length Measured, 88.2, kg, 03/31/24 10:51:00 CDT, Weight Dosing Start Date: 04/19/24 Stop Date: 06/21/24 Status: Completed gabapentin 300 mg oral capsule 1 cap(s), Oral, TID, # 90 cap(s), 11 Refill(s), Start Date: 07/07/24 10:05:00 AM CDT, Pharmacy: [facility] #[id number], 173, cm, 07/07/24 9:24:00 CDT, Height/Length Measured, 88.2, kg, 07/07/24 9:25:00 CDT, Weight Dosing Start Date: 07/07/24 Stop Date: 07/11/24 Status: Discontinued hydrocodone-acetaminophen 5 mg-325 mg oral tablet See Instructions, 1/2 to 1 tab(s) Oral TID, # 60 tab(s), 0 Refill(s), Start Date: 07/11/24 2:53:00 PM CDT, Pharmacy: [facility] #[id number], 173, cm, 07/07/24 9:24:00 CDT, Height/Length Measured,88.2, kg, 07/07/24 9:25:00 CDT, Weight Dosing Start Date: 07/11/24 Stop Date: 07/26/24 Status: Discontinued ibuprofen 600 mg oral tablet 1 tab(s), Oral, QID, PRN PRN for pain, with food or milk, # 30 tab(s), 0 Refill(s), Start Date: 03/03/23 1:53:00 PM CDT, Pharmacy: [facility], 173, cm, 11/18/22 13:25:00 ACQUISITIONS LIBRARIAN, Height/Length Measured, 89.5, kg, 03/03/23 12:25:00 CDT, [...] Start Date: 07/07/24 10:05:00 AM CDT, [id number], 173, cm, 07/07/24 9:24:00 CDT, Height/Length Measured, [...] Date: 03/31/24 11:26:00 AM CDT, Pharmacy: [facility], 173, cm, 03/31/24 10:46:00 CDT, Height/Length Measured, 88.2, kg, 03/31/24 10:51:00 CDT, Weight Dosing Start Date: 03/31/24 Stop Date: 04/11/24 Status: Completed levoFLOXacin 500 mg oral tablet 1 tab(s), Oral, Daily, For chronic recurrent sinusitis, X 10 days, # 10 tab(s), 0 Refill(s), Start Date: 04/11/24 3:29:00 PM CDT, Pharmacy: [facility], 173, cm, 03/31/24 10:46:00 CDT, Height/Length Measured, 88.2, kg, 03/31/24 10:51:00 CDT, Weight Dosing Start Date: 04/11/24 Stop Date: 04/19/24 Status: Completed levoFLOXacin 500 mg oral tablet 1 tab(s), Oral, Daily, For chronic recurrent sinusitis, # 10 tab(s), 0 Refill(s), Start Date: 04/19/24 10:19:00 AM CDT, Pharmacy: [facility] #[id number], 173, cm, 03/31/24 10:46:00 CDT, Height/Length Measured, 88.2, kg, 03/31/24 10:51:00 CDT, Weight Dosing Start Date: 04/19/24 Stop Date: 06/06/24 Status: Completed linezolid 600 mg oral tablet 1 tab(s), Oral, q12hr, generic please, # 28 tab(s), 0 Refill(s), Start Date: 11/16/18 11:41:00 AM ACQUISITIONS LIBRARIAN, Pharmacy: [facility] Start Date: 11/16/18 Stop Date: 12/02/18 Status: Completed Medrol 4 mg oral tablet 1 packet(s), Oral, ONETIME, as directed on package labeling, # 21 tab(s), 0 Refill(s), Start Date: 11/18/22 1:39:00 PM ACQUISITIONS LIBRARIAN, Pharmacy: [facility], 173, cm, 11/18/22 13:25:00 ACQUISITIONS LIBRARIAN, Height/Length Measured, 86.3, kg, 11/18/22 13:27:00 ACQUISITIONS LIBRARIAN, Weight Dosing Start Date: 11/18/22 Stop Date: 03/09/23 Status: Completed metFORMIN 500 mg oral tablet 0.5 tab(s), Oral, BID, # 30 tab(s), 11 Refill(s), Start Date: 04/03/24 11:56:00 AM CDT, Pharmacy: [facility], 173, cm, 03/31/24 10:46:00 CDT, Height/Length Measured, 88.2, kg, 03/31/24 10:51:00 CDT, Weight Dosing Start Date: 04/03/24 Stop Date: 04/19/24 Status: Completed metFORMIN 500 mg oral tablet 0.5 tab(s), Oral, BID, # 30 tab(s), 11 Refill(s), Start Date: 04/19/24 10:19:00 AM CDT, Pharmacy: [facility] #[id number], 173, cm, 03/31/24 10:46:00 CDT, Height/Length Measured, 88.2, kg, 03/31/2410:51:00 CDT, Weight Dosing Start Date: 04/19/24 Stop Date: 06/21/24 Status: Completed metFORMIN 500 mg oral tablet 1 tab(s), Oral, BID, # 180 tab(s), 3 Refill(s), Start Date: 07/07/24 11:58:00 AM CDT, Pharmacy: [facility] #[id number], 173, cm, 07/07/24 9:24:00 CDT, Height/Length Measured, 88.2, kg, 07/07/24 9:25:00 CDT, Weight Dosing Start Date: 07/07/24 Status: Ordered MiraLax oral powder for reconstitution 17 gm, Oral, Daily, Dissolve in water before taking, # 255 gm, 0 Refill(s), Start Date: 05/21/18 10:05:00 AM CDT, Pharmacy: [facility] [id number] Start Date: 05/21/18 Stop Date: 03/31/24 Status: Completed MS Contin 15 mg oral tablet, extended release 2 tab(s), Oral, q12hr, # 28 tab(s), 0 Refill(s), Start Date: 05/21/18 10:04:00 AM CDT, Pharmacy: [facility] [id number] Start Date: 05/21/18 Stop Date: 09/09/18 Status: Completed MS Contin 30 mg oral tablet, extended release 1 tab(s), Oral, q12hr interval, 0 Refill(s), Start Date: 09/12/18 9:49:00 AM CDT Start Date: 09/12/18 Stop Date: 06/16/19 Status: Completed Multi-Day Plus Minerals oral tablet 1 tab(s), Oral, Daily, # 30 tab(s), 0 Refill(s), Start Date: 09/30/22 3:49:00 PM ACQUISITIONS LIBRARIAN Start Date: 09/30/22 Stop Date: 06/21/24 Status: Completed Narcan 4 mg/0.1 mL nasal spray 1 spray(s), Nasal, ONETIME, # 2 EA, 11 Refill(s), Start Date: 07/07/24 10:15:00 AM CDT, Pharmacy: [facility] #[id number], 173, cm, 07/07/24 9:24:00 CDT, Height/Length Measured, 88.2, kg, :25:00 CDT, Weight Dosing Start Date: 07/07/24 Stop Date: 07/26/24 Status: Discontinued Narcan 4 mg/0.1 mL nasal spray 1 spray(s), Nasal, ONETIME, # 2 EA, 0 Refill(s), Start Date: 08/25/24 3:51:00 PM CDT, Pharmacy: [id number], 173, cm, 07/26/24 15:14:00 CDT, Height/Length Measured, 88, kg, 08/17/24 7:54:00 CDT, Weight Dosing Start Date: 08/25/24 Status: Ordered oxycodone-acetaminophen 10 mg-325 mg oral tablet 0 Refill(s), Start Date: 11/18/22 1:27:00 PM ACQUISITIONS LIBRARIAN Start Date: 11/18/22 Stop Date: 04/09/23 Status: [...] Start Date: 07/07/24 10:05:00 AM CDT, Pharmacy: [facility] #[id number], 173, cm, 07/07/24 9:24:00 CDT, Height/Length Measured, 88.2, kg, 07/07/24 9:25:00 CDT, Weight Dosing Start Date: 07/07/24 Stop Date: 07/11/24 Status: Discontinued oxycodone-acetaminophen 5 mg-325 mg oral tablet 1 tab(s), Oral, TID, PRN PRN pain severe 8-10, # 90 tab(s), 0 Refill(s), Start Date: 08/25/24 10:49:00 AM CDT, Pharmacy: [id number], 173, cm, 07/26/24 15:14:00 [...] Start Date: 05/17/18 4:24:00 PM CDT, Pharmacy: [id number] Start Date: 05/17/18 Stop Date: 09/09/18 Status: Completed Percocet 5/325 oral tablet See Instructions, PRN PRN for pain, 1 tab(s) Oral q6hr not to exceed 4000 mg acetaminophen per day,# 60 tab(s), 0 Refill(s), Start Date: 09/14/18 9:23:00 AM CDT, Pharmacy: [facility] Start Date: 09/14/18 Stop Date: 06/16/19 Status: Completed predniSONE 10 mg oral tablet 3 tab(s), Oral, BID, For inflammation and pain, # 84 tab(s), 0 Refill(s), Start Date: 08/10/24 9:14:00 AM CDT, Pharmacy: [id number], 173, cm, 07/26/24 15:14:00 CDT, Height/Length Measured, 88, kg, 07/26/24 15:24:00 CDT, Weight Dosing Start Date: 08/10/24 Stop Date: 08/25/24 Status: Discontinued predniSONE 10 mg oral tablet 3 tab(s), Oral, BID, For inflammation and pain, # 84 tab(s), 0 Refill(s), Start Date: 07/26/24 3:47:00 PM CDT, Pharmacy: [facility] #[id number], 173, cm, 07/26/24 15:14:00 CDT, Height/Length Measured, [...] Start Date: 05/21/18 10:05:00 AM CDT, Pharmacy: [facility] [id number] Start Date: 05/21/18 Stop Date: 05/31/18 Status: Completed tamsulosin 0.4 mg oral capsule 1 cap(s), Oral, Daily, # 90 cap(s), 3 Refill(s), Start Date: 12/20/18 1:38:00 PM ACQUISITIONS LIBRARIAN, Pharmacy: [facility] Start Date: 12/20/18 Stop Date: 09/30/22 Status: Completed tamsulosin 0.4 mg oral capsule 1 cap(s), Oral, Daily, 0 Refill(s), Start Date: 09/09/18 7:57:00 AM CDT Start Date: 09/09/18 Stop Date: 12/20/18 Status: Discontinued traMADol 50 mg oral tablet 1 tab(s), Oral, q4hr interval, PRN PRN as needed for pain, # 12 tab(s), 0 Refill(s), Start Date: 03/03/23 1:54:00 PM CDT, Pharmacy: [facility], 173, cm, 11/18/22 13:25:00 ACQUISITIONS LIBRARIAN, Height/Length Measured, 89.5, kg, 03/03/23 12:25:00 CDT, Weight Dosing Start Date: 03/03/23 Stop Date: 03/31/24 Status: Completed vancomycin 1 g intravenous injection IV, q12hr interval, prescribed by Dr Perdue, 0 Refill(s), Start Date: 10/21/18 8:45:00 AM ACQUISITIONS LIBRARIAN Start Date: 10/21/18 Stop Date: 11/16/18 Status: Completed Zinc 140 mg (as elemental zinc 50 mg) oral tablet 1 tab(s), Oral, Daily, # 90 tab(s), 0 Refill(s), Start Date: 09/30/22 3:48:00 PM ACQUISITIONS LIBRARIAN Start Date: 09/30/22 Stop Date: 06/21/24 Status: [...] Elbow surgery from elbow to forearm 14left [id number] procedure 16left 17LT Rotator Cuff Repair 18right 19RT Tendon Repair 20right side 21RT Wrist Surgery- Frzn wrist- 2 screws Social History Social History Type Response Sex Male Patient Care team information Personnel Name: Carlos Enrique Obando MD Address: Address: [address] [place] [address]
--- OUTSIDE RECORDS SUMMARY | 2024-11-23 00:08 | XMS_ITS | Continuity of Care Document ---
Author Organization [facility] Address [address] [facility] [address] [place] [address] Care Team Providers Care Lead Infrastructure Architect Name Role Phone Carlos Enrique Obando Primary Care Physician Encounter Date(s): 04/11/24 - 04/11/24 Family Medicine [facility] [address] [place] [address]- Discharge Disposition: Discharged to Home or Self [...] Start Date: 04/22/23 10:25:00 AM CDT, Pharmacy: [facility], 173, cm, 04/09/23 15:48:00 CDT, Height/Length [...] Start Date: 03/09/23 10:48:00 AM CDT, Pharmacy: [facility], 173, cm, 03/09/23 10:20:00 CDT, Height/Length Measured, 89.5, kg, 03/09/23 10:22:00 CDT, Weight Dosing Start Date: 03/09/23 Stop Date: 08/27/23 Status: Completed amLODIPine 5 mg oral tablet 1 tab(s), Oral, Daily, # 90 tab(s), 3 Refill(s), Start Date: 08/27/23 8:41:00 AM CDT, Pharmacy: [facility], 173, cm, 04/09/23 15:48:00 CDT, [...] Start Date: 03/09/23 10:49:00 AM CDT, Pharmacy: [facility], 173, cm, 03/09/23 10:20:00 CDT, Height/Length Measured, 89.5, kg, 03/09/23 10:22:00 CDT,Weight Dosing Start Date: 03/09/23 Stop Date: 04/22/23 Status: Completed baclofen 10 mg oral tablet 1 tab(s), Oral, TID, # 30 tab(s), 1 Refill(s), Start Date: 04/22/23 11:37:00 AM CDT, [facility], 173, cm, 04/09/23 15:48:00 CDT, Height/Length Measured, 87.6, kg, 04/09/23 15:50:00 CDT, Weight Dosing Start Date: 04/22/23 Stop Date: 03/31/24 Status: Completed baclofen 10 mg oral tablet 0 Refill(s), Start Date: 11/18/22 1:27:00 PM LEARNING COORDINATOR Start Date: 11/18/22 Stop Date: 03/09/23 Status: Discontinued baclofen 10 mg oral tablet 1 tab(s), Oral, TID, PRN PRN for pain, 0 Refill(s), Start Date: 05/15/18 11:15:00 PM CDT Start Date: 05/15/18 Stop Date: 06/16/19 Status: Completed baclofen 10 mg tablet baclofen 10 mg tablet, 1 tab(s), Oral, TID, # 30 tab(s), 2 Refill(s), Pharmacy: [facility], 173, cm, 04/09/23 15:48:00 CDT, Height/Length [...] 0 Refill(s), Start Date: 11/09/18 6:34:00 PM LEARNING COORDINATOR, Pharmacy: [facility] Start Date: 11/09/18 Stop Date: 12/16/18 Status: Completed ciprofloxacin 750 mg oral tablet 1 tab(s), Oral, q12hr, 2h away from dairy, X 14 days, # 28 tab(s), 2 Refill(s), Start Date: :21:00 PM LEARNING COORDINATOR, Pharmacy: [facility] Start Date: 09/19/18 Stop Date: 11/09/18 [...] 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 daily 3 months 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, # 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, 0 Refill(s), 03/16/19 6:45:00 [...] 3 Refill(s), Start Date: 12/20/18 1:37:00 PM LEARNING COORDINATOR, Pharmacy: [facility] Start Date: 12/20/18 Stop Date: 09/30/22 Status: Completed finasteride 5 mg oral tablet 1 tab(s), Oral, Daily, # 30 tab(s), 0 Refill(s), Start Date: 03/31/24 10:43:00 AM CDT Start Date: 03/31/24 Status: Ordered fluticasone 50 mcg/inh nasal spray 2 spray(s), Nasal, BID, # 16 gm, 11 Refill(s), Start Date: 04/03/24 11:55:00 AM CDT, Pharmacy: [facility], 173, cm, 03/31/24 10:46:00 CDT, Height/Length Measured, [...] Start Date: 03/03/23 1:53:00 PM CDT, Pharmacy: [facility], 173, cm, 11/18/22 13:25:00 LEARNING COORDINATOR, Height/Length Measured, 89.5, kg, 03/03/23 12:25:00 [...] Start Date: 03/31/24 11:26:00 AM CDT, Pharmacy: [facility], 173, cm, 03/31/24 10:46:00 CDT, Height/Length Measured, 88.2, kg, 03/31/24 10:51:00 CDT, Weight Dosing Start Date: 03/31/24 Stop Date: 04/11/24 Status: Completed levoFLOXacin 500 mg oral tablet 1 tab(s), Oral, Daily, For chronic recurrent sinusitis, # 10 tab(s), 0 Refill(s), Start Date: 04/11/24 3:29:00 PM CDT, Pharmacy: [facility], 173, cm, 03/31/24 10:46:00 CDT, Height/Length Measured, 88.2, kg, 03/31/24 10:51:00 CDT, Weight Dosing Start Date: 04/11/24 Stop Date: 04/21/24 Status: Ordered linezolid 600 mg oral tablet 1 tab(s), Oral, q12hr, generic please, # 28 tab(s), 0 Refill(s), Start Date: 11/16/18 11:41:00 AM LEARNING COORDINATOR, Pharmacy: [facility] Start Date: 11/16/18 Stop Date: 12/02/18 Status: Completed Medrol 4 mg oral tablet 1 packet(s), Oral, ONETIME, as directed on package labeling, # 21 tab(s), 0 Refill(s), Start Date: 11/18/22 1:39:00 PM LEARNING COORDINATOR, Pharmacy: [facility], 173, cm, 11/18/22 13:25:00 LEARNING COORDINATOR, Height/Length Measured, 86.3, kg, 11/18/22 13:27:00 LEARNING COORDINATOR, Weight Dosing Start Date: 11/18/22 Stop Date: 03/09/23 Status: Completed metFORMIN 500 mg oral tablet 0.5 tab(s), Oral, BID, # 30 tab(s), 11 Refill(s), Start Date: 04/03/24 11:56:00 AM CDT, Pharmacy: [facility], 173, cm, 03/31/24 10:46:00 CDT, Height/Length Measured, 88.2, kg, 03/31/24 10:51:00 CDT, Weight Dosing Start Date: 04/03/24 Status: Ordered MiraLax oral powder for reconstitution 17 gm, Oral, Daily, Dissolve in water before taking, # 255 gm, 0 Refill(s), Start Date: 05/21/18 10:05:00 AM CDT, Pharmacy: [id number] Start Date: 05/21/18 Stop Date: 03/31/24 Status: Completed MS Contin 15 mg oral tablet, extended release 2 tab(s), Oral, q12hr, # 28 tab(s), 0 Refill(s), Start Date: 05/21/18 10:04:00 AM CDT, Pharmacy: [id number] Start Date: 05/21/18 Stop Date: 09/09/18 Status: Completed MS Contin 30 mg oral tablet, extended release 1 tab(s), Oral, q12hr interval, 0 Refill(s), Start Date: 09/12/18 9:49:00 AM CDT Start Date: 09/12/18 Stop Date: 06/16/19 Status: Completed Multi-Day Plus Minerals oral tablet 1 tab(s), Oral, Daily, # 30 tab(s), 0 Refill(s), Start Date: 09/30/22 3:49:00 PM LEARNING COORDINATOR Start Date: 09/30/22 Status: Ordered oxycodone-acetaminophen 10 mg-325 mg oral tablet 0 Refill(s), Start Date: 11/18/22 1:27:00 PM LEARNING COORDINATOR Start Date: 11/18/22 Stop Date: 04/09/23 [...] 4:24:00 PM CDT, Pharmacy: [id number] Start Date: 05/17/18 Stop Date: 09/09/18 Status: Completed Percocet 5/325 oral tablet See Instructions, PRN PRN for pain, 1 tab(s) Oral q6hr not to exceed 4000 mg acetaminophen per day,# 60 tab(s), 0 Refill(s), Start Date: 09/14/18 9:23:00 AM CDT, Pharmacy: [facility] Start Date: 09/14/18 Stop Date: 06/16/19 Status: Completed pregabalin 75 mg oral capsule 1 cap(s), Oral, BID, 0 Refill(s), Start Date: 03/31/24 10:44:00 AM CDT Start Date: 03/31/24 Status: Ordered Senokot S 50 mg-8.6 mg oral tablet 1 tab(s), Oral, BID, X 10 days, # 20 tab(s), 0 Refill(s), Start Date: 05/21/18 10:05:00 AM CDT, [id number] Start Date: 05/21/18 Stop Date: 05/31/18 Status: Completed tamsulosin 0.4 mg oral capsule 1 cap(s), Oral, Daily, # 90 cap(s), 3 Refill(s), Start Date: 12/20/18 1:38:00 PM LEARNING COORDINATOR, Pharmacy: [facility] Start Date: 12/20/18 Stop Date: 09/30/22 Status: Completed tamsulosin 0.4 mg oral capsule 1 cap(s), Oral, Daily, 0 Refill(s), Start Date: 09/09/18 7:57:00 AM CDT Start Date: 09/09/18 Stop Date: 12/20/18 Status: Discontinued traMADol 50 mg oral tablet 1 tab(s), Oral, q4hr interval, PRN PRN as needed for pain, # 12 tab(s), 0 Refill(s), Start Date: 03/03/23 1:54:00 PM CDT, Pharmacy: [facility], 173, cm, 11/18/22 13:25:00 LEARNING COORDINATOR, Height/Length Measured, 89.5, kg, 03/03/23 12:25:00 CDT, Weight Dosing Start Date: 03/03/23 Stop Date: 03/31/24 Status: Completed vancomycin 1 g intravenous injection IV, q12hr interval, prescribed by Dr Perdue, 0 Refill(s), Start Date: 10/21/18 8:45:00 AM LEARNING COORDINATOR Start Date: 10/21/18 Stop Date: 11/16/18 Status: Completed Zinc 140 mg (as elemental zinc 50 mg) oral tablet 1 tab(s), Oral, Daily, # 90 tab(s), 0 Refill(s), Start Date: 09/30/22 3:48:00 PM LEARNING COORDINATOR Start Date: 09/30/22 Status: Ordered Problem List [...] Carlos Enrique Obando MD Address: Address: [address] [place] [id number] [place] [address]
--- OUTSIDE RECORDS SUMMARY | 2024-11-23 00:08 | XMS_ITS | Continuity of Care Document ---
Author Organization [facility] Address [address] [facility] [address] [place] [address] Care Team Providers Care Loose Hand Packer Name Role Phone Carlos Enrique Obando Primary Care Physician Encounter Date(s): 04/23/24 - 04/23/24 [facility] [address] [place] [address]- Discharge Disposition: Discharged to Home or Self [...] Start Date: 04/22/23 10:25:00 AM CDT, Pharmacy: [facility], 173, cm, 04/09/23 15:48:00 CDT, Height/Length [...] Start Date: 03/09/23 10:48:00 AM CDT, Pharmacy: [facility], 173, cm, 03/09/23 10:20:00 CDT, Height/Length Measured, 89.5, kg, 03/09/23 10:22:00 CDT, Weight Dosing Start Date: 03/09/23 Stop Date: 08/27/23 Status: Completed amLODIPine 5 mg oral tablet 1 tab(s), Oral, Daily, # 90 tab(s), 3 Refill(s), Start Date: 08/27/23 8:41:00 AM CDT, Pharmacy: [facility], 173, cm, 04/09/23 15:48:00 CDT, Height/Length [...] Start Date: 03/09/23 10:49:00 AM CDT, Pharmacy: [facility], 173, cm, 03/09/23 10:20:00 CDT, Height/Length Measured, 89.5, kg, 03/09/23 10:22:00 CDT,Weight Dosing Start Date: 03/09/23 Stop Date: 04/22/23 Status: Completed baclofen 10 mg oral tablet 1 tab(s), Oral, TID, # 30 tab(s), 1 Refill(s), Start Date: 04/22/23 11:37:00 AM CDT, [facility], [facility], 04/09/23 15:48:00 CDT, Height/Length Measured, 87.6, kg, 04/09/23 15:50:00 CDT, Weight Dosing Start Date: 04/22/23 Stop Date: 03/31/24 Status: Completed baclofen 10 mg oral tablet 0 Refill(s), Start Date: 11/18/22 1:27:00 PM SHEET METAL MECHANIC Start Date: 11/18/22 Stop Date: 03/09/23 Status: Discontinued baclofen 10 mg oral tablet 1 tab(s), Oral, TID, PRN PRN for pain, 0 Refill(s), Start Date: 05/15/18 11:15:00 PM CDT Start Date: 05/15/18 Stop Date: 06/16/19 Status: Completed baclofen 10 mg tablet baclofen 10 mg tablet, 1 tab(s), Oral, TID, # 30 tab(s), 2 Refill(s), Pharmacy: [facility], 173, cm, 04/09/23 15:48:00 CDT, Height/Length Measured, 87.6, kg, 04/09/23 15:50:00 CDT, Weight Dosing Start Date: 06/08/23 Stop Date: 03/31/24 Status: Completed baclofen 10 mg tablet baclofen 10 mg tablet, 1 tab(s), Oral, TID, # 30 tab(s), 2 Refill(s), Pharmacy: [facility], 173, cm, 04/09/23 15:48:00 CDT, Height/Length [...] 0 Refill(s), Start Date: 11/09/18 6:34:00 PM SHEET METAL MECHANIC, Pharmacy: [facility] Start Date: 11/09/18 Stop Date: 12/16/18 Status: Completed ciprofloxacin 750 mg oral tablet 1 tab(s), Oral, q12hr, 2h away from dairy, X 14 days, # 28 tab(s), 2 Refill(s), Start Date: :21:00 PM SHEET METAL MECHANIC, Pharmacy: [facility] Start Date: 09/19/18 Stop Date: 11/09/18 [...] moderate daily 3 months 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, # 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, 0 Refill(s), 03/16/19 6:45:00 [...] 3 Refill(s), Start Date: 12/20/18 1:37:00 PM SHEET METAL MECHANIC, Pharmacy: [facility] Start Date: 12/20/18 Stop Date: 09/30/22 Status: Completed finasteride 5 mg oral tablet 1 tab(s), Oral, Daily, # 30 tab(s), 0 Refill(s), Start Date: 03/31/24 10:43:00 AM CDT Start Date: 03/31/24 Status: Ordered fluticasone 50 mcg/inh nasal spray 2 spray(s), Nasal, BID, X 42 days, # 16 gm, 11 Refill(s), Start Date: 04/03/24 11:55:00 AM CDT, Pharmacy: [facility], 173, cm, 03/31/24 10:46:00 CDT, Height/Length [...] Start Date: 04/19/24 10:19:00 AM CDT, Pharmacy: [facility] #[id number], 173, cm, 03/31/24 10:46:00 CDT, Height/Length Measured, 88.2, kg, 03/31/24 10:51:00 CDT, Weight Dosing Start Date: 04/19/24 Stop Date: 09/05/25 Status: Ordered ibuprofen 600 mg oral tablet 1 tab(s), Oral, QID, PRN PRN for pain, with food or milk, # 30 tab(s), 0 Refill(s), Start Date: 03/03/23 1:53:00 PM CDT, Pharmacy: [facility], 173, cm, 11/18/22 13:25:00 SHEET METAL MECHANIC, Height/Length Measured, 89.5, kg, 03/03/23 12:25:00 CDT, [...] Start Date: 03/31/24 11:26:00 AM CDT, Pharmacy: [facility], 173, cm, 03/31/24 10:46:00 CDT, Height/Length Measured, 88.2, kg, 03/31/24 10:51:00 CDT, Weight Dosing Start Date: 03/31/24 Stop Date: 04/11/24 Status: Completed levoFLOXacin 500 mg oral tablet 1 tab(s), Oral, Daily, For chronic recurrent sinusitis, X 10 days, # 10 tab(s), 0 Refill(s), Start Date: 04/11/24 3:29:00 PM CDT, Pharmacy: [facility], 173, cm, 03/31/24 10:46:00 CDT, Height/Length Measured, 88.2, kg, 03/31/24 10:51:00 CDT, Weight Dosing Start Date: 04/11/24 Stop Date: 04/19/24 Status: Completed levoFLOXacin 500 mg oral tablet 1 tab(s), Oral, Daily, For chronic recurrent sinusitis, # 10 tab(s), 0 Refill(s), Start Date: 04/19/24 10:19:00 AM CDT, Pharmacy: [facility] #[id number], 173, cm, 03/31/24 10:46:00 CDT, Height/Length Measured, 88.2, kg, 03/31/24 10:51:00 CDT, Weight Dosing Start Date: 04/19/24 Stop Date: 04/29/24 Status: Ordered linezolid 600 mg oral tablet 1 tab(s), Oral, q12hr, generic please, # 28 tab(s), 0 Refill(s), Start Date: 11/16/18 11:41:00 AM SHEET METAL MECHANIC, Pharmacy: [facility] Start Date: 11/16/18 Stop Date: 12/02/18 Status: Completed Medrol 4 mg oral tablet 1 packet(s), Oral, ONETIME, as directed on package labeling, # 21 tab(s), 0 Refill(s), Start Date: 11/18/22 1:39:00 PM SHEET METAL MECHANIC, Pharmacy: [facility], 173, cm, 11/18/22 13:25:00 SHEET METAL MECHANIC, Height/Length Measured, 86.3, kg, 11/18/22 13:27:00 SHEET METAL MECHANIC, Weight Dosing Start Date: 11/18/22 Stop Date: 03/09/23 Status: Completed metFORMIN 500 mg oral tablet 0.5 tab(s), Oral, BID, # 30 tab(s), 11 Refill(s), Start Date: 04/03/24 11:56:00 AM CDT, Pharmacy: [facility], 173, cm, 03/31/24 10:46:00 CDT, Height/Length Measured, 88.2, kg, 03/31/24 10:51:00 CDT, Weight Dosing Start Date: 04/03/24 Stop Date: 04/19/24 Status: Completed metFORMIN 500 mg oral tablet 0.5 tab(s), Oral, BID, # 30 tab(s), 11 Refill(s), Start Date: 04/19/24 10:19:00 AM CDT, Pharmacy: [facility] #[id number], 173, cm, 03/31/24 10:46:00 CDT, Height/Length Measured, 88.2, kg, 03/31/2410:51:00 CDT, Weight Dosing Start Date: 04/19/24 Status: Ordered MiraLax oral powder for reconstitution 17 gm, Oral, Daily, Dissolve in water before taking, # 255 gm, 0 Refill(s), Start Date: 05/21/18 10:05:00 AM CDT, Pharmacy: [id number] Start Date: 05/21/18 Stop Date: 03/31/24 Status: Completed MS Contin 15 mg oral tablet, extended release 2 tab(s), Oral, q12hr, # 28 tab(s), 0 Refill(s), Start Date: 05/21/18 10:04:00 AM CDT, Pharmacy: [id number] Start Date: 05/21/18 Stop Date: 09/09/18 Status: Completed MS Contin 30 mg oral tablet, extended release 1 tab(s), Oral, q12hr interval, 0 Refill(s), Start Date: 09/12/18 9:49:00 AM CDT Start Date: 09/12/18 Stop Date: 06/16/19 Status: Completed Multi-Day Plus Minerals oral tablet 1 tab(s), Oral, Daily, # 30 tab(s), 0 Refill(s), Start Date: 09/30/22 3:49:00 PM SHEET METAL MECHANIC Start Date: 09/30/22 Status: Ordered oxycodone-acetaminophen 10 mg-325 mg oral tablet 0 Refill(s), Start Date: 11/18/22 1:27:00 PM SHEET METAL MECHANIC Start Date: 11/18/22 Stop Date: 04/09/23 Status: [...] Start Date: 05/17/18 4:24:00 PM CDT, Pharmacy: [id number] Start Date: 05/17/18 Stop Date: 09/09/18 Status: Completed Percocet 5/325 oral tablet See Instructions, PRN PRN for pain, 1 tab(s) Oral q6hr not to exceed 4000 mg acetaminophen per day,# 60 tab(s), 0 Refill(s), Start Date: 09/14/18 9:23:00 AM CDT, Pharmacy: [facility] Start Date: 09/14/18 Stop Date: 06/16/19 Status: Completed pregabalin 75 mg oral capsule 1 cap(s), Oral, BID, 0 Refill(s), Start Date: 03/31/24 10:44:00 AM CDT Start Date: 03/31/24 Status: Ordered Senokot S 50 mg-8.6 mg oral tablet 1 tab(s), Oral, BID, X 10 days, # 20 tab(s), 0 Refill(s), Start Date: 05/21/18 10:05:00 AM CDT, Pharmacy: [id number] Start Date: 05/21/18 Stop Date: 05/31/18 Status: Completed tamsulosin 0.4 mg oral capsule 1 cap(s), Oral, Daily, # 90 cap(s), 3 Refill(s), Start Date: 12/20/18 1:38:00 PM SHEET METAL MECHANIC, Pharmacy: [facility] Start Date: 12/20/18 Stop Date: 09/30/22 Status: Completed tamsulosin 0.4 mg oral capsule 1 cap(s), Oral, Daily, 0 Refill(s), Start Date: 09/09/18 7:57:00 AM CDT Start Date: 09/09/18 Stop Date: 12/20/18 Status: Discontinued traMADol 50 mg oral tablet 1 tab(s), Oral, q4hr interval, PRN PRN as needed for pain, # 12 tab(s), 0 Refill(s), Start Date: 03/03/23 1:54:00 PM CDT, Pharmacy: [facility], 173, cm, 11/18/22 13:25:00 SHEET METAL MECHANIC, Height/Length Measured, 89.5, kg, 03/03/23 12:25:00 CDT, Weight Dosing Start Date: 03/03/23 Stop Date: 03/31/24 Status: Completed vancomycin 1 g intravenous injection IV, q12hr interval, prescribed by Dr Perdue, 0 Refill(s), Start Date: 10/21/18 8:45:00 AM SHEET METAL MECHANIC Start Date: 10/21/18 Stop Date: 11/16/18 Status: Completed Zinc 140 mg (as elemental zinc 50 mg) oral tablet 1 tab(s), Oral, Daily, # 90 tab(s), 0 Refill(s), Start Date: 09/30/22 3:48:00 PM SHEET METAL MECHANIC Start Date: 09/30/22 Status: Ordered Problem List [...] Elbow surgery from elbow to forearm 13left [id number] procedure 15left 16LT Rotator Cuff Repair 17right 18RT Tendon Repair 19right side 20RT Wrist Surgery- Frzn wrist- 2 screws Social History Social History Type Response Sex Male Patient Care team information Personnel Name: Carlos Enrique Obando MD Address: Address: [address] [place] [address]
--- OUTSIDE RECORDS SUMMARY | 2024-11-23 00:08 | XMS_ITS | Continuity of Care Document ---
Author Organization [facility] Address [address] [facility] [address] [place] [address] Care Team Providers Care Operator/Assistant Foreman Name Role Phone Carlos Enrique Obando Primary Care Physician Encounter Date(s): 04/21/24 - 04/21/24 Family Medicine [facility] [address] [place] [address]- Discharge Disposition: Discharged to Home or Self [...] Start Date: 04/22/23 10:25:00 AM CDT, Pharmacy: [facility], 173, cm, 04/09/23 15:48:00 CDT, Height/Length [...] Start Date: 03/09/23 10:48:00 AM CDT, Pharmacy: [facility], 173, cm, 03/09/23 10:20:00 CDT, [...] Start Date: 04/22/23 11:37:00 AM CDT, [facility], cm, 04/09/23 15:48:00 CDT, Height/Length Measured, 87.6, kg, 04/09/23 15:50:00 CDT, Weight Dosing Start Date: 04/22/23 Stop Date: 03/31/24 Status: Completed baclofen 10 mg oral tablet 0 Refill(s), Start Date: 11/18/22 1:27:00 PM COOK APPRENTICE PASTRY Start Date: 11/18/22 Stop Date: 03/09/23 Status: Discontinued baclofen 10 mg oral tablet 1 tab(s), Oral, TID, PRN PRN for pain, 0 Refill(s), Start Date: 05/15/18 11:15:00 PM CDT Start Date: 05/15/18 Stop Date: 06/16/19 Status: Completed baclofen 10 mg tablet baclofen 10 mg tablet, 1 tab(s), Oral, TID, # 30 tab(s), 2 Refill(s), Pharmacy: [facility], 173, cm, 04/09/23 15:48:00 CDT, Height/Length [...] 0 Refill(s), Start Date: 11/09/18 6:34:00 PM COOK APPRENTICE PASTRY, Pharmacy: [facility] Start Date: 11/09/18 Stop Date: 12/16/18 Status: Completed ciprofloxacin 750 mg oral tablet 1 tab(s), Oral, q12hr, 2h away from dairy, X 14 days, # 28 tab(s), 2 Refill(s), Start Date: :21:00 PM COOK APPRENTICE PASTRY, Pharmacy: [facility] Start Date: 09/19/18 Stop Date: 11/09/18 [...] 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 daily 3 months 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, # 1 boxes, 0 Refill(s), 03/16/19 6:45:00 [...] 3 Refill(s), Start Date: 12/20/18 1:37:00 PM COOK APPRENTICE PASTRY, Pharmacy: [facility] Start Date: 12/20/18 Stop Date: [...] Start Date: 04/19/24 10:19:00 AM CDT, Pharmacy: [email or web address] #[id number], 173, cm, 03/31/24 10:46:00 CDT, Height/Length Measured, 88.2, kg, 03/31/24 10:51:00 CDT, Weight Dosing Start Date: 04/19/24 Stop Date: 09/05/25 Status: Ordered ibuprofen 600 mg oral tablet 1 tab(s), Oral, QID, PRN PRN for pain, with food or milk, # 30 tab(s), 0 Refill(s), Start Date: 03/03/23 1:53:00 PM CDT, Pharmacy: [facility], 173, cm, 11/18/22 13:25:00 COOK APPRENTICE PASTRY, Height/Length Measured, 89.5, kg, 03/03/23 12:25:00 CDT, [...] Start Date: 03/31/24 11:26:00 AM CDT, Pharmacy: [facility], 173, cm, 03/31/24 10:46:00 CDT, [...] Start Date: 04/19/24 10:19:00 AM CDT, Pharmacy: [facility] #[id number], 173, cm, 03/31/24 10:46:00 CDT, Height/Length Measured, 88.2, kg, 03/31/24 10:51:00 CDT, Weight Dosing Start Date: 04/19/24 Stop Date: 04/29/24 Status: Ordered linezolid 600 mg oral tablet 1 tab(s), Oral, q12hr, generic please, # 28 tab(s), 0 Refill(s), Start Date: 11/16/18 11:41:00 AM COOK APPRENTICE PASTRY, Pharmacy: [facility] Start Date: 11/16/18 Stop Date: 12/02/18 Status: Completed Medrol 4 mg oral tablet 1 packet(s), Oral, ONETIME, as directed on package labeling, # 21 tab(s), 0 Refill(s), Start Date: 11/18/22 1:39:00 PM COOK APPRENTICE PASTRY, Pharmacy: [facility], 173, cm, 11/18/22 13:25:00 COOK APPRENTICE PASTRY, Height/Length Measured, 86.3, kg, 11/18/22 13:27:00 COOK APPRENTICE PASTRY, Weight Dosing Start Date: 11/18/22 Stop Date: [...] Start Date: 04/19/24 10:19:00 AM CDT, Pharmacy: [facility] #[id number], 173, cm, 03/31/24 10:46:00 CDT, Height/Length Measured, 88.2, kg, 03/31/2410:51:00 CDT, Weight Dosing Start Date: 04/19/24 Status: Ordered MiraLax oral powder for reconstitution 17 gm, Oral, Daily, Dissolve in water before taking, # 255 gm, 0 Refill(s), Start Date: 05/21/18 10:05:00 AM CDT, Pharmacy: [facility] [id number] Start Date: 05/21/18 Stop Date: 03/31/24 Status: Completed MS Contin 15 mg oral tablet, extended release 2 tab(s), Oral, q12hr, # 28 tab(s), 0 Refill(s), Start Date: 05/21/18 10:04:00 AM CDT, Pharmacy: [facility] [id number] Start Date: 05/21/18 Stop Date: 09/09/18 Status: Completed MS Contin 30 mg oral tablet, extended release 1 tab(s), Oral, q12hr interval, 0 Refill(s), Start Date: 09/12/18 9:49:00 AM CDT Start Date: 09/12/18 Stop Date: 06/16/19 Status: Completed Multi-Day Plus Minerals oral tablet 1 tab(s), Oral, Daily, # 30 tab(s), 0 Refill(s), Start Date: 09/30/22 3:49:00 PM COOK APPRENTICE PASTRY Start Date: 09/30/22 Status: Ordered oxycodone-acetaminophen 10 mg-325 mg oral tablet 0 Refill(s), Start Date: 11/18/22 1:27:00 PM COOK APPRENTICE PASTRY Start Date: 11/18/22 Stop Date: 04/09/23 Status: [...] Start Date: 05/17/18 4:24:00 PM CDT, Pharmacy: [facility] [id number] Start Date: 05/17/18 Stop Date: 09/09/18 Status: Completed Percocet 5/325 oral tablet See Instructions, PRN PRN for pain, 1 tab(s) Oral q6hr not to exceed 4000 mg acetaminophen per day,# 60 tab(s), 0 Refill(s), Start Date: 09/14/18 9:23:00 AM CDT, Pharmacy: [facility] Start Date: 09/14/18 Stop Date: 06/16/19 Status: Completed pregabalin 75 mg oral capsule 1 cap(s), Oral, BID, 0 Refill(s), Start Date: 03/31/24 10:44:00 AM CDT Start Date: 03/31/24 Status: Ordered Senokot S 50 mg-8.6 mg oral tablet 1 tab(s), Oral, BID, X 10 days, # 20 tab(s), 0 Refill(s), Start Date: 05/21/18 10:05:00 AM CDT, Pharmacy: [facility] [id number] Start Date: 05/21/18 Stop Date: 05/31/18 Status: Completed tamsulosin 0.4 mg oral capsule 1 cap(s), Oral, Daily, # 90 cap(s), 3 Refill(s), Start Date: 12/20/18 1:38:00 PM COOK APPRENTICE PASTRY, Pharmacy: [facility] Start Date: 12/20/18 Stop Date: 09/30/22 Status: Completed tamsulosin 0.4 mg oral capsule 1 cap(s), Oral, Daily, 0 Refill(s), Start Date: 09/09/18 7:57:00 AM CDT Start Date: 09/09/18 Stop Date: 12/20/18 Status: Discontinued traMADol 50 mg oral tablet 1 tab(s), Oral, q4hr interval, PRN PRN as needed for pain, # 12 tab(s), 0 Refill(s), Start Date: 03/03/23 1:54:00 PM CDT, Pharmacy: [facility], 173, cm, 11/18/22 13:25:00 COOK APPRENTICE PASTRY, Height/Length Measured, 89.5, kg, 03/03/23 12:25:00 CDT, Weight Dosing Start Date: 03/03/23 Stop Date: 03/31/24 Status: Completed vancomycin 1 g intravenous injection IV, q12hr interval, prescribed by Dr Perdue, 0 Refill(s), Start Date: 10/21/18 8:45:00 AM COOK APPRENTICE PASTRY Start Date: 10/21/18 Stop Date: 11/16/18 Status: Completed Zinc 140 mg (as elemental zinc 50 mg) oral tablet 1 tab(s), Oral, Daily, # 90 tab(s), 0 Refill(s), Start Date: 09/30/22 3:48:00 PM COOK APPRENTICE PASTRY Start Date: 09/30/22 Status: Ordered Problem List [...] Elbow surgery from elbow to forearm 13left [id number] procedure 15left 16LT Rotator Cuff Repair 17right 18RT Tendon Repair 19right side 20RT Wrist Surgery- Frzn wrist- 2 screws Social History Social History Type Response Sex Male Patient Care team information Personnel Name: Carlos Enrique Obando MD Address: Address: [address] [place] [address]
--- OUTSIDE RECORDS SUMMARY | 2024-11-23 00:08 | XMS_ITS | Continuity of Care Document ---
Author Organization [facility] Address [address] [facility] [[email or web address]] [address] [place] [address] Care Team Providers Care Micro Lab Analyst Name Role Phone Carlos Enrique Obando Primary Care Physician Encounter Date(s): 04/03/24 - 04/03/24 Family Medicine [facility] [address] [place] [address]- Discharge Disposition: Discharged to Home or Self [...] Start Date: 04/22/23 10:25:00 AM CDT, Pharmacy: [facility], 173, cm, 04/09/23 15:48:00 CDT, Height/Length [...] Start Date: 03/09/23 10:48:00 AM CDT, Pharmacy: [facility], 173, cm, 03/09/23 10:20:00 CDT, Height/Length Measured, 89.5, kg, 03/09/23 10:22:00 CDT, Weight Dosing Start Date: 03/09/23 Stop Date: 08/27/23 Status: Completed amLODIPine 5 mg oral tablet 1 tab(s), Oral, Daily, # 90 tab(s), 3 Refill(s), Start Date: 08/27/23 8:41:00 AM CDT, Pharmacy: [facility], 173, cm, 04/09/23 15:48:00 CDT, Height/Length [...] Start Date: 03/09/23 10:49:00 AM CDT, Pharmacy: [facility], 173, cm, 03/09/23 10:20:00 CDT, Height/Length Measured, 89.5, kg, 03/09/23 10:22:00 CDT,Weight Dosing Start Date: 03/09/23 Stop Date: 04/22/23 Status: Completed baclofen 10 mg oral tablet 1 tab(s), Oral, TID, # 30 tab(s), 1 Refill(s), Start Date: 04/22/23 11:37:00 AM CDT, [facility], 173, cm, 04/09/23 15:48:00 CDT, Height/Length Measured, 87.6, kg, 04/09/23 15:50:00 CDT, Weight Dosing Start Date: 04/22/23 Stop Date: 03/31/24 Status: Completed baclofen 10 mg oral tablet 0 Refill(s), Start Date: 11/18/22 1:27:00 PM CANNON 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 Start Date: 11/18/22 Stop Date: 03/09/23 Status: Discontinued baclofen 10 mg oral tablet 1 tab(s), Oral, TID, PRN PRN for pain, 0 Refill(s), Start Date: 05/15/18 11:15:00 PM CDT Start Date: 05/15/18 Stop Date: 06/16/19 Status: Completed baclofen 10 mg tablet baclofen 10 mg tablet, 1 tab(s), Oral, TID, # 30 tab(s), 2 Refill(s), Pharmacy: [facility], 173, cm, 04/09/23 15:48:00 CDT, Height/Length Measured, 87.6, kg, 04/09/23 15:50:00 CDT, Weight Dosing Start Date: 06/08/23 Stop Date: 03/31/24 Status: Completed baclofen 10 mg tablet baclofen 10 mg tablet, 1 tab(s), Oral, TID, # 30 tab(s), 2 Refill(s), Pharmacy: [facility], 173, cm, 04/09/23 15:48:00 CDT, [...] 0 Refill(s), Start Date: 11/09/18 6:34:00 PM CANNON 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, Pharmacy: [facility] Start Date: 11/09/18 Stop Date: 12/16/18 Status: Completed ciprofloxacin 750 mg oral tablet 1 tab(s), Oral, q12hr, 2h away from dairy, X 14 days, # 28 tab(s), 2 Refill(s), Start Date: :21:00 PM CANNON 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, Pharmacy: [facility] Start Date: 09/19/18 Stop Date: 11/09/18 [...] 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 daily 3 months 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, # 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, 0 Refill(s), 03/16/19 6:45:00 [...] 3 Refill(s), Start Date: 12/20/18 1:37:00 PM CANNON 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, Pharmacy: [facility] Start Date: 12/20/18 Stop Date: 09/30/22 Status: Completed finasteride 5 mg oral tablet 1 tab(s), Oral, Daily, # 30 tab(s), 0 Refill(s), Start Date: 03/31/24 10:43:00 AM CDT Start Date: 03/31/24 Status: Ordered fluticasone 50 mcg/inh nasal spray 2 spray(s), Nasal, BID, # 16 gm, 11 Refill(s), Start Date: 04/03/24 11:55:00 AM CDT, Pharmacy: [facility], 173, cm, 03/31/24 10:46:00 CDT, [...] Start Date: 03/03/23 1:53:00 PM CDT, Pharmacy: [facility], 173, cm, 11/18/22 13:25:00 CANNON 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, Height/Length Measured, 89.5, kg, 03/03/23 12:25:00 CDT, [...] Start Date: 03/31/24 11:26:00 AM CDT, Pharmacy: [facility], 173, cm, 03/31/24 10:46:00 CDT, Height/Length Measured, 88.2, kg, 03/31/24 10:51:00 CDT, Weight Dosing Start Date: 03/31/24 Stop Date: 04/10/24 Status: Ordered linezolid 600 mg oral tablet 1 tab(s), Oral, q12hr, generic please, # 28 tab(s), 0 Refill(s), Start Date: 11/16/18 11:41:00 AM CANNON 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, Pharmacy: [facility] Start Date: 11/16/18 Stop Date: 12/02/18 Status: Completed Medrol 4 mg oral tablet 1 packet(s), Oral, ONETIME, as directed on package labeling, # 21 tab(s), 0 Refill(s), Start Date: 11/18/22 1:39:00 PM CANNON 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, Pharmacy: [facility], 173, cm, 11/18/22 13:25:00 CANNON 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, Height/Length Measured, 86.3, kg, 11/18/22 13:27:00 CANNON 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, Weight Dosing Start Date: 11/18/22 Stop Date: 03/09/23 Status: Completed metFORMIN 500 mg oral tablet 0.5 tab(s), Oral, BID, # 30 tab(s), 11 Refill(s), Start Date: 04/03/24 11:56:00 AM CDT, Pharmacy: [facility], 173, cm, 03/31/24 10:46:00 CDT, Height/Length Measured, 88.2, kg, 03/31/24 10:51:00 CDT, Weight Dosing Start Date: 04/03/24 Status: Ordered MiraLax oral powder for reconstitution 17 gm, Oral, Daily, Dissolve in water before taking, # 255 gm, 0 Refill(s), Start Date: 05/21/18 10:05:00 AM CDT, Pharmacy: [id number] Start Date: 05/21/18 Stop Date: 03/31/24 Status: Completed MS Contin 15 mg oral tablet, extended release 2 tab(s), Oral, q12hr, # 28 tab(s), 0 Refill(s), Start Date: 05/21/18 10:04:00 AM CDT, Pharmacy: [id number] Start Date: 05/21/18 Stop Date: 09/09/18 Status: Completed MS Contin 30 mg oral tablet, extended release 1 tab(s), Oral, q12hr interval, 0 Refill(s), Start Date: 09/12/18 9:49:00 AM CDT Start Date: 09/12/18 Stop Date: 06/16/19 Status: Completed Multi-Day Plus Minerals oral tablet 1 tab(s), Oral, Daily, # 30 tab(s), 0 Refill(s), Start Date: 09/30/22 3:49:00 PM CANNON 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 Start Date: 09/30/22 Status: Ordered oxycodone-acetaminophen 10 mg-325 mg oral tablet 0 Refill(s), Start Date: 11/18/22 1:27:00 PM CANNON 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 Start Date: 11/18/22 Stop Date: 04/09/23 Status: [...] Start Date: 05/17/18 4:24:00 PM CDT, Pharmacy: [id number] Start Date: 05/17/18 Stop Date: 09/09/18 Status: Completed Percocet 5/325 oral tablet See Instructions, PRN PRN for pain, 1 tab(s) Oral q6hr not to exceed 4000 mg acetaminophen per day,# 60 tab(s), 0 Refill(s), Start Date: 09/14/18 9:23:00 AM CDT, Pharmacy: [facility] Start Date: 09/14/18 Stop Date: 06/16/19 Status: Completed pregabalin 75 mg oral capsule 1 cap(s), Oral, BID, 0 Refill(s), Start Date: 03/31/24 10:44:00 AM CDT Start Date: 03/31/24 Status: Ordered Senokot S 50 mg-8.6 mg oral tablet 1 tab(s), Oral, BID, X 10 days, # 20 tab(s), 0 Refill(s), Start Date: 05/21/18 10:05:00 AM CDT, Pharmacy: [facility] [id number] Start Date: 05/21/18 Stop Date: 05/31/18 Status: Completed tamsulosin 0.4 mg oral capsule 1 cap(s), Oral, Daily, # 90 cap(s), 3 Refill(s), Start Date: 12/20/18 1:38:00 PM 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, Pharmacy: [facility] Start Date: [...] Start Date: 03/03/23 1:54:00 PM CDT, Pharmacy: [facility], 173, cm, 11/18/22 13:25:00 CANNON 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, Height/Length Measured, 89.5, kg, 03/03/23 12:25:00 CDT, Weight Dosing Start Date: 03/03/23 Stop Date: 03/31/24 Status: Completed vancomycin 1 g intravenous injection IV, q12hr interval, prescribed by Dr Perdue, 0 Refill(s), Start Date: 10/21/18 8:45:00 AM CANNON 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 Start Date: 10/21/18 Stop Date: 11/16/18 Status: Completed Zinc 140 mg (as elemental zinc 50 mg) oral tablet 1 tab(s), Oral, Daily, # 90 tab(s), 0 Refill(s), Start Date: 09/30/22 3:48:00 PM CANNON 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 Start Date: 09/30/22 Status: Ordered Problem List [...] Name: Carlos Enrique Obando MD Address: Address: [address] [place] [phone] [place]
--- OUTSIDE RECORDS SUMMARY | 2024-11-23 00:08 | XMS_ITS | Continuity of Care Document ---
Author Organization [facility] Address [address] [facility] [[email or web address]] [address] [place] [address] Care Team Providers Care Room Inspector Name Role Phone Carlos Enrique Obando Primary Care Physician [phone] Encounter Date(s): 08/17/24 - 08/17/24 [facility] [address] [place] [address]- Encounter Diagnosis Left wrist effusion(Discharge Diagnosis) - 08/17/24 Arthritis of left wrist(Discharge Diagnosis) - 08/17/24 Osteoarthritis of carpometacarpal joint of left thumb(Discharge Diagnosis) - 08/17/24 Discharge Disposition: 01 Discharged to Home or Self Care Attending Physician: MICHELA Martinez Referring Physician: Carlos Enrique Obando MD Allergies, [...] Start Date: 03/09/23 10:50:00 AM CDT, Pharmacy: [facility], 03/09/23 10:20:00 CDT, Height/Length Measured, 89.5, kg, 03/09/23 10:22:00 CDT, Weight Dosing Start Date: 03/09/23 Stop Date: 04/22/23 Status: Completed amitriptyline 75 mg oral tablet 1 tab(s), Oral, HS, # 90 tab(s), 2 Refill(s), Start Date: 04/22/23 10:25:00 AM CDT, Pharmacy: [facility], [...] Start Date: 03/09/23 10:48:00 AM CDT, Pharmacy: [facility], 173, cm, 03/09/23 10:20:00 CDT, Height/Length Measured, 89.5, kg, 03/09/23 10:22:00 CDT, Weight Dosing Start Date: 03/09/23 Stop Date: 08/27/23 Status: Completed amLODIPine 5 mg oral tablet 1 tab(s), Oral, Daily, # 90 tab(s), 3 Refill(s), Start Date: 08/27/23 8:41:00 AM CDT, Pharmacy: [facility], 173, cm, 04/09/23 15:48:00 CDT, [...] Start Date: 07/26/24 3:47:00 PM CDT, Pharmacy: [facility] #[id number], 173, cm, 07/26/24 15:14:00 CDT, Height/Length Measured, [...] Start Date: 07/07/24 11:58:00 AM CDT, Pharmacy: [facility] #[id number], 173, cm, 07/07/24 9:24:00 CDT, Height/Length Measured, 88.2, kg, 07/07/24 9:25:00 CDT, Weight Dosing Start Date: 07/07/24 Status: Ordered baclofen 10 mg oral tablet 1 tab(s), Oral, TID, # 30 tab(s), 0 Refill(s), Start Date: 03/09/23 10:49:00 AM CDT, Pharmacy: [facility], 173, cm, 03/09/23 10:20:00 CDT, Height/Length Measured, 89.5, kg, 03/09/23 10:22:00 CDT,Weight Dosing Start Date: 03/09/23 Stop Date: 04/22/23 Status: Completed baclofen 10 mg oral tablet 1 tab(s), Oral, TID, # 30 tab(s), 1 Refill(s), Start Date: 04/22/23 11:37:00 AM CDT, Pharmacy: [facility], 173, cm, 04/09/23 15:48:00 CDT, Height/Length Measured, 87.6, kg, 04/09/23 15:50:00 CDT, Weight Dosing Start Date: 04/22/23 Stop Date: 03/31/24 Status: Completed baclofen 10 mg oral tablet 0 Refill(s), Start Date: 11/18/22 1:27:00 PM MANAGER EPIC Start Date: 11/18/22 Stop Date: 03/09/23 Status: [...] TID, # 30 tab(s), 2 Refill(s), Pharmacy: [facility], 173, cm, 04/09/23 15:48:00 CDT, Height/Length Measured, 87.6, kg, 04/09/23 15:50:00 CDT, Weight Dosing Start Date: 06/18/23 Stop Date: 03/31/24 Status: Completed carisoprodol 250 mg oral tablet 1 tab(s), Oral, BID, # 60 tab(s), 5 Refill(s), Start Date: 07/26/24 3:47:00 PM CDT, Pharmacy: [facility] #[id number], 173, cm, 07/26/24 15:14:00 CDT, Height/Length Measured, [...] 0 Refill(s), Start Date: 11/09/18 6:34:00 PM MANAGER EPIC, Pharmacy: [facility] Start Date: 11/09/18 Stop Date: 12/16/18 Status: Completed ciprofloxacin 750 mg oral tablet 1 tab(s), Oral, q12hr, 2h away from dairy, X 14 days, # 28 tab(s), 2 Refill(s), Start Date: :21:00 PM MANAGER EPIC, Pharmacy: [facility] Start Date: 09/19/18 Stop Date: 11/09/18 [...] 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 daily 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, # 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, 0 Refill(s), 03/16/19 [...] 3 Refill(s), Start Date: 12/20/18 1:37:00 PM MANAGER EPIC, Pharmacy: [facility] Start Date: 12/20/18 Stop Date: 09/30/22 [...] Start Date: 04/19/24 10:19:00 AM CDT, Pharmacy: [facility] #[id number], 173, cm, 03/31/24 10:46:00 CDT, Height/Length Measured, 88.2, kg, 03/31/24 10:51:00 CDT, Weight Dosing Start Date: 04/19/24 Stop Date: 06/21/24 Status: Completed gabapentin 300 mg oral capsule 1 cap(s), Oral, TID, # 90 cap(s), 11 Refill(s), Start Date: 07/07/24 10:05:00 AM CDT, Pharmacy: [facility] #[id number], 173, cm, 07/07/24 9:24:00 CDT, Height/Length Measured, 88.2, kg, 07/07/24 9:25:00 CDT, Weight Dosing Start Date: 07/07/24 Stop Date: 07/11/24 Status: Discontinued hydrocodone-acetaminophen 5 mg-325 mg oral tablet See Instructions, 1/2 to 1 tab(s) Oral TID, # 60 tab(s), 0 Refill(s), Start Date: 07/11/24 2:53:00 PM CDT, Pharmacy: [facility] #[id number], 173, cm, 07/07/24 9:24:00 CDT, Height/Length Measured,88.2, kg, 07/07/24 9:25:00 CDT, Weight Dosing Start Date: 07/11/24 Stop Date: 07/26/24 Status: Discontinued ibuprofen 600 mg oral tablet 1 tab(s), Oral, QID, PRN PRN for pain, with food or milk, # 30 tab(s), 0 Refill(s), Start Date: 03/03/23 1:53:00 PM CDT, Pharmacy: [facility], 173, cm, 11/18/22 13:25:00 MANAGER EPIC, Height/Length Measured, 89.5, kg, 03/03/23 12:25:00 CDT, [...] CDT, Pharmacy: [facility] #[id number], 173, cm, 07/07/24 9:24:00 CDT, Height/Length Measured, [...] Start Date: 03/31/24 11:26:00 AM CDT, Pharmacy: [facility], 173, cm, 03/31/24 10:46:00 CDT, Height/Length Measured, 88.2, kg, 03/31/24 10:51:00 CDT, Weight Dosing Start Date: 03/31/24 Stop Date: 04/11/24 Status: Completed levoFLOXacin 500 mg oral tablet 1 tab(s), Oral, Daily, For chronic recurrent sinusitis, X 10 days, # 10 tab(s), 0 Refill(s), Start Date: 04/11/24 3:29:00 PM CDT, Pharmacy: [facility], 173, cm, 03/31/24 10:46:00 CDT, Height/Length Measured, 88.2, kg, 03/31/24 10:51:00 CDT, Weight Dosing Start Date: 04/11/24 Stop Date: 04/19/24 Status: Completed levoFLOXacin 500 mg oral tablet 1 tab(s), Oral, Daily, For chronic recurrent sinusitis, # 10 tab(s), 0 Refill(s), Start Date: 04/19/24 10:19:00 AM CDT, Pharmacy: [facility] #[id number], 173, cm, 03/31/24 10:46:00 CDT, Height/Length Measured, 88.2, kg, 03/31/24 10:51:00 CDT, Weight Dosing Start Date: 04/19/24 Stop Date: 06/06/24 Status: Completed linezolid 600 mg oral tablet 1 tab(s), Oral, q12hr, generic please, # 28 tab(s), 0 Refill(s), Start Date: 11/16/18 11:41:00 AM MANAGER EPIC, Pharmacy: [facility] Start Date: 11/16/18 Stop Date: 12/02/18 Status: Completed Medrol 4 mg oral tablet 1 packet(s), Oral, ONETIME, as directed on package labeling, # 21 tab(s), 0 Refill(s), Start Date: 11/18/22 1:39:00 PM MANAGER EPIC, Pharmacy: [facility], 173, cm, 11/18/22 13:25:00 MANAGER EPIC, Height/Length Measured, 86.3, kg, 11/18/22 13:27:00 MANAGER EPIC, Weight Dosing Start Date: 11/18/22 Stop Date: [...] Start Date: 04/19/24 10:19:00 AM CDT, Pharmacy: [facility] #[id number], 173, cm, 03/31/24 10:46:00 CDT, Height/Length Measured, 88.2, kg, 03/31/2410:51:00 CDT, Weight Dosing Start Date: 04/19/24 Stop Date: 06/21/24 Status: Completed metFORMIN 500 mg oral tablet 1 tab(s), Oral, BID, # 180 tab(s), 3 Refill(s), Start Date: 07/07/24 11:58:00 AM CDT, Pharmacy: [facility] #[id number], 173, cm, 07/07/24 9:24:00 CDT, Height/Length Measured, 88.2, kg, 07/07/24 9:25:00 CDT, Weight Dosing Start Date: 07/07/24 Status: Ordered MiraLax oral powder for reconstitution 17 gm, Oral, Daily, Dissolve in water before taking, # 255 gm, 0 Refill(s), Start Date: 05/21/18 10:05:00 AM CDT, Pharmacy: [facility] [id number] Start Date: 05/21/18 Stop Date: 03/31/24 Status: Completed MS Contin 15 mg oral tablet, extended release 2 tab(s), Oral, q12hr, # 28 tab(s), 0 Refill(s), Start Date: 05/21/18 10:04:00 AM CDT, Pharmacy: [facility] [id number] Start Date: 05/21/18 Stop Date: 09/09/18 Status: Completed MS Contin 30 mg oral tablet, extended release 1 tab(s), Oral, q12hr interval, 0 Refill(s), Start Date: 09/12/18 9:49:00 AM CDT Start Date: 09/12/18 Stop Date: 06/16/19 Status: Completed Multi-Day Plus Minerals oral tablet 1 tab(s), Oral, Daily, # 30 tab(s), 0 Refill(s), Start Date: 09/30/22 3:49:00 PM MANAGER EPIC Start Date: 09/30/22 Stop Date: 06/21/24 Status: Completed Narcan 4 mg/0.1 mL nasal spray 1 spray(s), Nasal, ONETIME, # 2 EA, 11 Refill(s), Start Date: 07/07/24 10:15:00 AM CDT, Pharmacy: [facility] #[id number], 173, cm, 07/07/24 9:24:00 CDT, Height/Length Measured, 88.2, kg, 249:25:00 CDT, Weight Dosing Start Date: 07/07/24 Stop Date: 07/26/24 Status: Discontinued oxycodone-acetaminophen 10 mg-325 mg oral tablet 0 Refill(s), Start Date: 11/18/22 1:27:00 PM MANAGER EPIC Start Date: 11/18/22 Stop Date: 04/09/23 Status: [...] Start Date: 07/07/24 10:05:00 AM CDT, Pharmacy: [facility] #[id number], 173, cm, 07/07/24 9:24:00 CDT, Height/Length Measured, [...] Start Date: 05/17/18 4:24:00 PM CDT, Pharmacy: [facility] [id number] Start Date: 05/17/18 Stop Date: 09/09/18 Status: Completed Percocet 5/325 oral tablet See Instructions, PRN PRN for pain, 1 tab(s) Oral q6hr not to exceed 4000 mg acetaminophen per day,# 60 tab(s), 0 Refill(s), Start Date: 09/14/18 9:23:00 AM CDT, Pharmacy: [facility] Start Date: 09/14/18 Stop Date: 06/16/19 Status: Completed predniSONE 10 mg oral tablet 3 tab(s), Oral, BID, For inflammation and pain, # 84 tab(s), 0 Refill(s), Start Date: 08/10/24 9:14:00 AM CDT, Pharmacy: [id number], 173, cm, 07/26/24 15:14:00 CDT, Height/Length Measured, 88, kg, 07/26/24 15:24:00 CDT, Weight Dosing Start Date: 08/10/24 Status: Ordered predniSONE 10 mg oral tablet 3 tab(s), Oral, BID, For inflammation and pain, # 84 tab(s), 0 Refill(s), Start Date: 07/26/24 3:47:00 PM CDT, Pharmacy: [facility] #[id number], 173, cm, 07/26/24 15:14:00 CDT, Height/Length Measured, [...] Start Date: 05/21/18 10:05:00 AM CDT, Pharmacy: [facility] [id number] Start Date: 05/21/18 Stop Date: 05/31/18 Status: Completed tamsulosin 0.4 mg oral capsule 1 cap(s), Oral, Daily, # 90 cap(s), 3 Refill(s), Start Date: 12/20/18 1:38:00 PM MANAGER EPIC, Pharmacy: [facility] Start Date: 12/20/18 Stop Date: 09/30/22 Status: Completed tamsulosin 0.4 mg oral capsule 1 cap(s), Oral, Daily, 0 Refill(s), Start Date: 09/09/18 7:57:00 AM CDT Start Date: 09/09/18 Stop Date: 12/20/18 Status: Discontinued traMADol 50 mg oral tablet 1 tab(s), Oral, q4hr interval, PRN PRN as needed for pain, # 12 tab(s), 0 Refill(s), Start Date: 03/03/23 1:54:00 PM CDT, Pharmacy: [facility], 173, cm, 11/18/22 13:25:00 MANAGER EPIC, Height/Length Measured, 89.5, kg, 03/03/23 12:25:00 CDT, Weight Dosing Start Date: 03/03/23 Stop Date: 03/31/24 Status: Completed vancomycin 1 g intravenous injection IV, q12hr interval, prescribed by Dr Perdue, 0 Refill(s), Start Date: 10/21/18 8:45:00 AM MANAGER EPIC Start Date: 10/21/18 Stop Date: 11/16/18 Status: Completed Zinc 140 mg (as elemental zinc 50 mg) oral tablet 1 tab(s), Oral, Daily, # 90 tab(s), 0 Refill(s), Start Date: 09/30/22 3:48:00 PM MANAGER EPIC Start Date: 09/30/22 Stop Date: 06/21/24 Status: [...] Procedure Date Related Diagnosis Body Site Status DRAIN/INJ JOINT/BURSA W/O US 08/17/24 Completed DRAIN/INJ JOINT/BURSA W/O US 08/17/24 Completed Epidural Steroid Injection - Lumbar 1 06/21/24 [...] Elbow surgery from elbow to forearm 14left [id number] procedure 16left 17LT Rotator Cuff Repair 18right 19RT Tendon Repair 20right side 21RT Wrist Surgery- Frzn wrist- 2 screws Results Radiology Reports * Exam Date Time Procedure Performing Provider Status 08/17/24 8:24 AM OC CR Wrist Complete Min 3 Views LT Carolyne Caldwell (Verified) Notes: (OC CR Wrist Complete Min 3 Views LT) Reason For Exam: left wrist pain Report History: Left wrist pain Comparison: Not applicable Findings: Severe degenerative change throughout the carpal bones and carpometacarpal joint of the thumb with joint line narrowing, appears to be widening of the scapholunate articulation, significantbone spurs, difficult to assess for underlying fracture is significant degenerative change about the left wrist IMPRESSION: THE ABOVE Electronically signed by Rick Busch MD. Final Dictated by: MICHELA Martinez Dictated DT/TM: 08/17/2024 8:51 am Signed by: Rick Busch MD Signed (Electronic Signature): 08/17/2024 11:58 am Vital Signs Most recent to oldest [Reference Range]: 1 Temperature Temporal Artery [36.5-37.3 D egC] 36.8 DegC (08/17/24 7:54 AM) Height/Length Estimated 173 cm (08/17/24 7:54 AM) Weight Estimated 88 kg (08/17/24 7:54 AM) Weight Dosing 88.00 kg 1 (08/17/24 7:54 AM) BSA Estimated 2.06 m2 (08/17/24 7:54 AM) Body Mass Index Estimated 29.4 kg/m2 (08/17/24 7:54 AM) 1Result Comment: This result was because the dosing weight was either not entered or it is >30 days old. This result is based off: Weight Estimated August 17, 2024 07:54:00 CDT by Norris Erazo CMA Social History Social History Type Response Sex Male Patient Care team information Personnel Name: Carlos Enrique Obando MD Address: Address: [address]
--- OUTSIDE RECORDS SUMMARY | 2024-11-23 00:08 | XMS_ITS | Continuity of Care Document ---
Author Organization [facility] Address [address] [facility] [address] [place] [address] Care Team Providers Care Wrapper Layer And Examiner Soft Work Name Role Phone Carlos Enrique Obando Primary Care Physician Encounter Date(s): 07/20/24 - 07/20/[address] [facility] [address] [place] [address]- Discharge Disposition: Discharged to Home or Self [...] Start Date: 04/22/23 10:25:00 AM CDT, Pharmacy: [facility], 173, cm, 04/09/23 15:48:00 CDT, [...] Start Date: 03/09/23 10:48:00 AM CDT, Pharmacy: [facility], 173, cm, 03/09/23 10:20:00 CDT, Height/Length Measured, 89.5, kg, 03/09/23 10:22:00 CDT, Weight Dosing Start Date: 03/09/23 Stop Date: 08/27/23 Status: Completed amLODIPine 5 mg oral tablet 1 tab(s), Oral, Daily, # 90 tab(s), 3 Refill(s), Start Date: 08/27/23 8:41:00 AM CDT, Pharmacy: [facility], 173, cm, 04/09/23 15:48:00 CDT, [...] Start Date: 07/07/24 11:58:00 AM CDT, Pharmacy: [facility] #[id number], 173, cm, 07/07/24 9:24:00 CDT, Height/Length Measured, 88.2, kg, 07/07/24 9:25:00 CDT, Weight Dosing Start Date: 07/07/24 Status: Ordered baclofen 10 mg oral tablet 1 tab(s), Oral, TID, # 30 tab(s), 0 Refill(s), Start Date: 03/09/23 10:49:00 AM CDT, Pharmacy: [facility], 173, cm, 03/09/23 10:20:00 CDT, Height/Length Measured, 89.5, kg, 03/09/23 10:22:00 CDT,Weight Dosing Start Date: 03/09/23 Stop Date: 04/22/23 Status: Completed baclofen 10 mg oral tablet 1 tab(s), Oral, TID, # 30 tab(s), 1 Refill(s), Start Date: 04/22/23 11:37:00 AM CDT, Pharmacy: [facility], 173, cm, 04/09/23 15:48:00 CDT, Height/Length Measured, 87.6, kg, 04/09/23 15:50:00 CDT, Weight Dosing Start Date: 04/22/23 Stop Date: 03/31/24 Status: Completed baclofen 10 mg oral tablet 0 Refill(s), Start Date: 11/18/22 1:27:00 PM 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 SPECIALIST Start Date: 11/18/22 Stop Date: 03/09/23 Status: Discontinued baclofen 10 mg oral tablet 1 tab(s), Oral, TID, PRN PRN for pain, 0 Refill(s), Start Date: 05/15/18 11:15:00 PM CDT Start Date: 05/15/18 Stop Date: 06/16/19 Status: Completed baclofen 10 mg tablet baclofen 10 mg tablet, 1 tab(s), Oral, TID, # 30 tab(s), 2 Refill(s), Pharmacy: [facility], 173, cm, 04/09/23 15:48:00 CDT, Height/Length Measured, 87.6, kg, 04/09/23 15:50:00 CDT, Weight Dosing Start Date: 06/08/23 Stop Date: 03/31/24 Status: Completed baclofen 10 mg tablet baclofen 10 mg tablet, 1 tab(s), Oral, TID, # 30 tab(s), 2 Refill(s), Pharmacy: [facility], 173, cm, 04/09/23 15:48:00 CDT, [...] 0 Refill(s), Start Date: 11/09/18 6:34:00 PM 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 SPECIALIST, Pharmacy: [facility] Start Date: 11/09/18 Stop Date: 12/16/18 Status: Completed ciprofloxacin 750 mg oral tablet 1 tab(s), Oral, q12hr, 2h away from dairy, X 14 days, # 28 tab(s), 2 Refill(s), Start Date: 182:21:00 PM 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 SPECIALIST, Pharmacy: [facility] Start Date: 09/19/18 Stop Date: 11/09/18 [...] 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 daily 3 months 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, # 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, 0 Refill(s), 03/16/19 [...] 3 Refill(s), Start Date: 12/20/18 1:37:00 PM 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 SPECIALIST, Pharmacy: [facility] Start [...] Start Date: 04/03/24 11:55:00 AM CDT, Pharmacy: [facility], 173, cm, 03/31/24 10:46:00 CDT, [...] Start Date: 04/19/24 10:19:00 AM CDT, Pharmacy: [facility] #[id number], 173, cm, 03/31/24 10:46:00 CDT, Height/Length Measured, 88.2, kg, 03/31/24 10:51:00 CDT, Weight Dosing Start Date: 04/19/24 Stop Date: 06/21/24 Status: Completed gabapentin 300 mg oral capsule 1 cap(s), Oral, TID, # 90 cap(s), 11 Refill(s), Start Date: 07/07/24 10:05:00 AM CDT, Pharmacy: [facility] #[id number], 173, cm, 07/07/24 9:24:00 CDT, Height/Length Measured, 88.2, kg, 07/07/24 9:25:00 CDT, Weight Dosing Start Date: 07/07/24 Stop Date: 07/11/24 Status: Discontinued hydrocodone-acetaminophen 5 mg-325 mg oral tablet See Instructions, 1/2 to 1 tab(s) Oral TID, # 60 tab(s), 0 Refill(s), Start Date: 07/11/24 2:53:00 PM CDT, Pharmacy: [facility] #[id number], 173, cm, 07/07/24 9:24:00 CDT, Height/Length Measured,88.2, kg, 07/07/24 9:25:00 CDT, Weight Dosing Start Date: 07/11/24 Status: Ordered ibuprofen 600 mg oral tablet 1 tab(s), Oral, QID, PRN PRN for pain, with food or milk, # 30 tab(s), 0 Refill(s), Start Date: 03/03/23 1:53:00 PM CDT, Pharmacy: [facility], 173, cm, 11/18/22 13:25:00 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 SPECIALIST, Height/Length Measured, 89.5, kg, 03/03/23 12:25:00 CDT, [...] Start Date: 07/07/24 10:05:00 AM CDT, Pharmacy: [facility] #[id number], 173, cm, 07/07/24 9:24:00 CDT, Height/Length Measured, [...] Start Date: 03/31/24 11:26:00 AM CDT, Pharmacy: [facility], 173, cm, 03/31/24 10:46:00 CDT, Height/Length Measured, 88.2, kg, 03/31/24 10:51:00 CDT, Weight Dosing Start Date: 03/31/24 Stop Date: 04/11/24 Status: Completed levoFLOXacin 500 mg oral tablet 1 tab(s), Oral, Daily, For chronic recurrent sinusitis, X 10 days, # 10 tab(s), 0 Refill(s), Start Date: 04/11/24 3:29:00 PM CDT, Pharmacy: [facility], 173, cm, 03/31/24 10:46:00 CDT, Height/Length Measured, 88.2, kg, 03/31/24 10:51:00 CDT, Weight Dosing Start Date: 04/11/24 Stop Date: 04/19/24 Status: Completed levoFLOXacin 500 mg oral tablet 1 tab(s), Oral, Daily, For chronic recurrent sinusitis, # 10 tab(s), 0 Refill(s), Start Date: 04/19/24 10:19:00 AM CDT, Pharmacy: [facility] #[id number], 173, cm, 03/31/24 10:46:00 CDT, Height/Length Measured, 88.2, kg, 03/31/24 10:51:00 CDT, Weight Dosing Start Date: 04/19/24 Stop Date: 06/06/24 Status: Completed linezolid 600 mg oral tablet 1 tab(s), Oral, q12hr, generic please, # 28 tab(s), 0 Refill(s), Start Date: 11/16/18 11:41:00 AM 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 SPECIALIST, Pharmacy: [facility] Start Date: 11/16/18 Stop Date: 12/02/18 Status: Completed Medrol 4 mg oral tablet 1 packet(s), Oral, ONETIME, as directed on package labeling, # 21 tab(s), 0 Refill(s), Start Date: 11/18/22 1:39:00 PM 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 SPECIALIST, Pharmacy: [facility], 173, cm, 11/18/22 13:25:00 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 SPECIALIST, Height/Length Measured, 86.3, kg, 11/18/22 13:27:00 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 SPECIALIST, Weight Dosing Start Date: 11/18/22 Stop Date: 03/09/23 Status: Completed metFORMIN 500 mg oral tablet 0.5 tab(s), Oral, BID, # 30 tab(s), 11 Refill(s), Start Date: 04/03/24 11:56:00 AM CDT, Pharmacy: [facility], 173, cm, 03/31/24 10:46:00 CDT, Height/Length Measured, 88.2, kg, 03/31/24 10:51:00 CDT, Weight Dosing Start Date: 04/03/24 Stop Date: 04/19/24 Status: Completed metFORMIN 500 mg oral tablet 0.5 tab(s), Oral, BID, # 30 tab(s), 11 Refill(s), Start Date: 04/19/24 10:19:00 AM CDT, Pharmacy: [facility] #[id number], 173, cm, 03/31/24 10:46:00 CDT, Height/Length Measured, 88.2, kg, 03/31/2410:51:00 CDT, Weight Dosing Start Date: 04/19/24 Stop Date: 06/21/24 Status: Completed metFORMIN 500 mg oral tablet 1 tab(s), Oral, BID, # 180 tab(s), 3 Refill(s), Start Date: 07/07/24 11:58:00 AM CDT, Pharmacy: [facility] #[id number], 173, cm, 07/07/24 9:24:00 CDT, Height/Length Measured, 88.2, kg, 07/07/24 9:25:00 CDT, Weight Dosing Start Date: 07/07/24 Status: Ordered MiraLax oral powder for reconstitution 17 gm, Oral, Daily, Dissolve in water before taking, # 255 gm, 0 Refill(s), Start Date: 05/21/18 10:05:00 AM CDT, Pharmacy: [facility] [id number] Start Date: 05/21/18 Stop Date: 03/31/24 Status: Completed MS Contin 15 mg oral tablet, extended release 2 tab(s), Oral, q12hr, # 28 tab(s), 0 Refill(s), Start Date: 05/21/18 10:04:00 AM CDT, Pharmacy: [facility] [id number] Start Date: 05/21/18 Stop Date: 09/09/18 Status: Completed MS Contin 30 mg oral tablet, extended release 1 tab(s), Oral, q12hr interval, 0 Refill(s), Start Date: 09/12/18 9:49:00 AM CDT Start Date: 09/12/18 Stop Date: 06/16/19 Status: Completed Multi-Day Plus Minerals oral tablet 1 tab(s), Oral, Daily, # 30 tab(s), 0 Refill(s), Start Date: 09/30/22 3:49:00 PM 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 SPECIALIST Start Date: 09/30/22 Stop Date: 06/21/24 Status: Completed Narcan 4 mg/0.1 mL nasal spray 1 spray(s), Nasal, ONETIME, # 2 EA, 11 Refill(s), Start Date: 07/07/24 10:15:00 AM CDT, Pharmacy: [facility] #[id number], 173, cm, 07/07/24 9:24:00 CDT, Height/Length Measured, 88.2, kg, :25:00 CDT, Weight Dosing Start Date: 07/07/24 Status: Ordered oxycodone-acetaminophen 10 mg-325 mg oral tablet 0 Refill(s), Start Date: 11/18/22 1:27:00 PM 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 SPECIALIST Start Date: 11/18/22 Stop Date: 04/09/23 Status: [...] Start Date: 07/07/24 10:05:00 AM CDT, Pharmacy: [facility] #[id number], 173, cm, 07/07/24 9:24:00 CDT, Height/Length Measured, [...] Start Date: 05/17/18 4:24:00 PM CDT, Pharmacy: [facility] [id number] Start Date: 05/17/18 Stop Date: 09/09/18 Status: Completed Percocet 5/325 oral tablet See Instructions, PRN PRN for pain, 1 tab(s) Oral q6hr not to exceed 4000 mg acetaminophen per day,# 60 tab(s), 0 Refill(s), Start Date: 09/14/18 9:23:00 AM CDT, Pharmacy: [facility] Start Date: 09/14/18 Stop Date: 06/16/19 Status: Completed pregabalin 75 mg oral capsule 1 cap(s), Oral, BID, 0 Refill(s), Start Date: 03/31/24 10:44:00 AM CDT Start Date: 03/31/24 Stop Date: 07/07/24 Status: Discontinued Senokot S 50 mg-8.6 mg oral tablet 1 tab(s), Oral, BID, X 10 days, # 20 tab(s), 0 Refill(s), Start Date: 05/21/18 10:05:00 AM CDT, Pharmacy: [facility] [id number] Start Date: 05/21/18 Stop Date: 05/31/18 Status: Completed tamsulosin 0.4 mg oral capsule 1 cap(s), Oral, Daily, # 90 cap(s), 3 Refill(s), Start Date: 12/20/18 1:38:00 PM 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 SPECIALIST, Pharmacy: [facility] Start [...] Start Date: 03/03/23 1:54:00 PM CDT, Pharmacy: [facility], 173, cm, 11/18/22 13:25:00 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 SPECIALIST, Height/Length Measured, 89.5, kg, 03/03/23 12:25:00 CDT, Weight Dosing Start Date: 03/03/23 Stop Date: 03/31/24 Status: Completed vancomycin 1 g intravenous injection IV, q12hr interval, prescribed by Dr Perdue, 0 Refill(s), Start Date: 10/21/18 8:45:00 AM 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 Start Date: 10/21/18 Stop Date: 11/16/18 Status: Completed Zinc 140 mg (as elemental zinc 50 mg) oral tablet 1 tab(s), Oral, Daily, # 90 tab(s), 0 Refill(s), Start Date: 09/30/22 3:48:00 PM 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 SPECIALIST Start Date: 09/30/22 Stop Date: 06/21/24 Status: [...] Elbow surgery from elbow to forearm 14left [id number] procedure 16left 17LT Rotator Cuff Repair 18right 19RT Tendon Repair 20right side 21RT Wrist Surgery- Frzn wrist- 2 screws Social History Social History Type Response Sex Male Patient Care team information Personnel Name: Carlos Enrique Obando MD Address: Address: [address]
--- OUTSIDE RECORDS SUMMARY | 2024-11-23 00:08 | XMS_ITS | Continuity of Care Document ---
Author Organization [facility] Address [address] [facility] [address] [place] [address] Care Team Providers Care Central Supply Aide Name Role Phone Carlos Enrique Obando Primary Care Physician Encounter Date(s): 07/07/24 - 07/07/[address] [facility] [address] [place] [address]- Discharge Disposition: Discharged to Home or Self [...] Start Date: 07/07/24 11:58:00 AM CDT, Pharmacy: [facility] #[id number], 173, cm, 07/07/24 9:24:00 CDT, Height/Length Measured, [...] 0 Refill(s), Start Date: 11/18/22 1:27:00 PM MICROSOFT EXCHANGE ADMINISTRATOR Start Date: 11/18/22 Stop Date: 03/09/23 Status: [...] 0 Refill(s), Start Date: 11/09/18 6:34:00 PM MICROSOFT EXCHANGE ADMINISTRATOR, Pharmacy: [facility] Start Date: 11/09/18 Stop Date: 12/16/18 Status: Completed ciprofloxacin 750 mg oral tablet 1 tab(s), Oral, q12hr, 2h away from dairy, X 14 days, # 28 tab(s), 2 Refill(s), Start Date: 182:21:00 PM MICROSOFT EXCHANGE ADMINISTRATOR, Pharmacy: [facility] Start Date: 09/19/18 Stop Date: 11/09/18 [...] 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 daily 3 months 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, # 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, 0 Refill(s), 03/16/19 6:45:00 [...] 3 Refill(s), Start Date: 12/20/18 1:37:00 PM MICROSOFT EXCHANGE ADMINISTRATOR, Pharmacy: [facility] Start Date: 12/20/18 Stop Date: 09/30/22 Status: Completed finasteride 5 mg oral tablet 1 tab(s), Oral, Daily, # 30 tab(s), 0 Refill(s), Start Date: 03/31/24 10:43:00 AM CDT Start Date: 03/31/24 Stop Date: 06/21/24 Status: Completed fluticasone 50 mcg/inh nasal spray 2 spray(s), Nasal, BID, X 42 days, # 16 gm, 11 Refill(s), Start Date: 04/03/24 11:55:00 AM CDT, Pharmacy: [facility], 173, cm, 03/31/24 10:46:00 CDT, Height/Length [...] Start Date: 04/19/24 10:19:00 AM CDT, Pharmacy: [facility] #[id number], 173, cm, 03/31/24 10:46:00 CDT, Height/Length Measured, 88.2, kg, 03/31/24 10:51:00 CDT, Weight Dosing Start Date: 04/19/24 Stop Date: 06/21/24 Status: Completed gabapentin 300 mg oral capsule 1 cap(s), Oral, TID, # 90 cap(s), 11 Refill(s), Start Date: 07/07/24 10:05:00 AM CDT, Pharmacy: [facility] #[id number], 173, cm, 07/07/24 9:24:00 CDT, Height/Length Measured, 88.2, kg, 07/07/24 9:25:00 CDT, Weight Dosing Start Date: 07/07/24 Status: Ordered ibuprofen 600 mg oral tablet 1 tab(s), Oral, QID, PRN PRN for pain, with food or milk, # 30 tab(s), 0 Refill(s), Start Date: 03/03/23 1:53:00 PM CDT, Pharmacy: [facility], 173, cm, 11/18/22 13:25:00 MICROSOFT EXCHANGE ADMINISTRATOR, Height/Length Measured, 89.5, kg, 03/03/23 12:25:00 CDT, [...] Start Date: 07/07/24 10:05:00 AM CDT, Pharmacy: [facility] #[id number], 173, cm, 07/07/24 9:24:00 CDT, Height/Length Measured, [...] Start Date: 03/31/24 11:26:00 AM CDT, Pharmacy: [facility], 173, cm, 03/31/24 10:46:00 CDT, Height/Length Measured, 88.2, kg, 03/31/24 10:51:00 CDT, Weight Dosing Start Date: 03/31/24 Stop Date: 04/11/24 Status: Completed levoFLOXacin 500 mg oral tablet 1 tab(s), Oral, Daily, For chronic recurrent sinusitis, X 10 days, # 10 tab(s), 0 Refill(s), Start Date: 04/11/24 3:29:00 PM CDT, Pharmacy: [facility], 173, cm, 03/31/24 10:46:00 CDT, Height/Length Measured, 88.2, kg, 03/31/24 10:51:00 CDT, Weight Dosing Start Date: 04/11/24 Stop Date: 04/19/24 Status: Completed levoFLOXacin 500 mg oral tablet 1 tab(s), Oral, Daily, For chronic recurrent sinusitis, # 10 tab(s), 0 Refill(s), Start Date: 04/19/24 10:19:00 AM CDT, Pharmacy: [facility] #[id number], 173, cm, 03/31/24 10:46:00 CDT, Height/Length Measured, 88.2, kg, 03/31/24 10:51:00 CDT, Weight Dosing Start Date: 04/19/24 Stop Date: 06/06/24 Status: Completed linezolid 600 mg oral tablet 1 tab(s), Oral, q12hr, generic please, # 28 tab(s), 0 Refill(s), Start Date: 11/16/18 11:41:00 AM MICROSOFT EXCHANGE ADMINISTRATOR, Pharmacy: [facility] Start Date: 11/16/18 Stop Date: 12/02/18 Status: Completed Medrol 4 mg oral tablet 1 packet(s), Oral, ONETIME, as directed on package labeling, # 21 tab(s), 0 Refill(s), Start Date: 11/18/22 1:39:00 PM MICROSOFT EXCHANGE ADMINISTRATOR, Pharmacy: [facility], 173, cm, 11/18/22 13:25:00 MICROSOFT EXCHANGE ADMINISTRATOR, Height/Length Measured, 86.3, kg, 11/18/22 13:27:00 MICROSOFT EXCHANGE ADMINISTRATOR, Weight Dosing Start Date: 11/18/22 Stop Date: 03/09/23 Status: Completed metFORMIN 500 mg oral tablet 0.5 tab(s), Oral, BID, # 30 tab(s), 11 Refill(s), Start Date: 04/03/24 11:56:00 AM CDT, Pharmacy: [facility], 173, cm, 03/31/24 10:46:00 CDT, Height/Length Measured, 88.2, kg, 03/31/24 10:51:00 CDT, Weight Dosing Start Date: 04/03/24 Stop Date: 04/19/24 Status: Completed metFORMIN 500 mg oral tablet 0.5 tab(s), Oral, BID, # 30 tab(s), 11 Refill(s), Start Date: 04/19/24 10:19:00 AM CDT, Pharmacy: [facility] #[id number], 173, cm, 03/31/24 10:46:00 CDT, Height/Length Measured, 88.2, kg, 03/31/2410:51:00 CDT, Weight Dosing Start Date: 04/19/24 Stop Date: 06/21/24 Status: Completed metFORMIN 500 mg oral tablet 1 tab(s), Oral, BID, # 180 tab(s), 3 Refill(s), Start Date: 07/07/24 11:58:00 AM CDT, Pharmacy: [facility] #[id number], 173, cm, 07/07/24 9:24:00 CDT, Height/Length Measured, 88.2, kg, 07/07/24 9:25:00 CDT, Weight Dosing Start Date: 07/07/24 Status: Ordered MiraLax oral powder for reconstitution 17 gm, Oral, Daily, Dissolve in water before taking, # 255 gm, 0 Refill(s), Start Date: 05/21/18 10:05:00 AM CDT, Pharmacy: [id number] Start Date: 05/21/18 Stop Date: 03/31/24 Status: Completed MS Contin 15 mg oral tablet, extended release 2 tab(s), Oral, q12hr, # 28 tab(s), 0 Refill(s), Start Date: 05/21/18 10:04:00 AM CDT, Pharmacy: [id number] Start Date: 05/21/18 Stop Date: 09/09/18 Status: Completed MS Contin 30 mg oral tablet, extended release 1 tab(s), Oral, q12hr interval, 0 Refill(s), Start Date: 09/12/18 9:49:00 AM CDT Start Date: 09/12/18 Stop Date: 06/16/19 Status: Completed Multi-Day Plus Minerals oral tablet 1 tab(s), Oral, Daily, # 30 tab(s), 0 Refill(s), Start Date: 09/30/22 3:49:00 PM MICROSOFT EXCHANGE ADMINISTRATOR Start Date: 09/30/22 Stop Date: 06/21/24 Status: Completed Narcan 4 mg/0.1 mL nasal spray 1 spray(s), Nasal, ONETIME, # 2 EA, 11 Refill(s), Start Date: 07/07/24 10:15:00 AM CDT, Pharmacy: [facility] #[id number], 173, cm, 07/07/24 9:24:00 CDT, Height/Length Measured, 88.2, kg, :25:00 CDT, Weight Dosing Start Date: 07/07/24 Status: Ordered oxycodone-acetaminophen 10 mg-325 mg oral tablet 0 Refill(s), Start Date: 11/18/22 1:27:00 PM MICROSOFT EXCHANGE ADMINISTRATOR Start Date: 11/18/22 Stop Date: 04/09/23 Status: [...] Start Date: 07/07/24 10:05:00 AM CDT, Pharmacy: [facility] #[id number], 173, cm, 07/07/24 9:24:00 CDT, Height/Length Measured, [...] Start Date: 05/17/18 4:24:00 PM CDT, Pharmacy: [id number] Start Date: 05/17/18 Stop Date: 09/09/18 Status: Completed Percocet 5/325 oral tablet See Instructions, PRN PRN for pain, 1 tab(s) Oral q6hr not to exceed 4000 mg acetaminophen per day,# 60 tab(s), 0 Refill(s), Start Date: 09/14/18 9:23:00 AM CDT, Pharmacy: [facility] Start Date: 09/14/18 Stop Date: 06/16/19 Status: Completed pregabalin 75 mg oral capsule 1 cap(s), Oral, BID, 0 Refill(s), Start Date: 03/31/24 10:44:00 AM CDT Start Date: 03/31/24 Stop Date: 07/07/24 Status: Discontinued Senokot S 50 mg-8.6 mg oral tablet 1 tab(s), Oral, BID, X 10 days, # 20 tab(s), 0 Refill(s), Start Date: 05/21/18 10:05:00 AM CDT, [id number] Start Date: 05/21/18 Stop Date: 05/31/18 Status: Completed tamsulosin 0.4 mg oral capsule 1 cap(s), Oral, Daily, # 90 cap(s), 3 Refill(s), Start Date: 12/20/18 1:38:00 PM MICROSOFT EXCHANGE ADMINISTRATOR, Pharmacy: [facility] Start Date: 12/20/18 Stop Date: 09/30/22 Status: Completed tamsulosin 0.4 mg oral capsule 1 cap(s), Oral, Daily, 0 Refill(s), Start Date: 09/09/18 7:57:00 AM CDT Start Date: 09/09/18 Stop Date: 12/20/18 Status: Discontinued traMADol 50 mg oral tablet 1 tab(s), Oral, q4hr interval, PRN PRN as needed for pain, # 12 tab(s), 0 Refill(s), Start Date: 03/03/23 1:54:00 PM CDT, Pharmacy: [facility], 173, cm, 11/18/22 13:25:00 MICROSOFT EXCHANGE ADMINISTRATOR, Height/Length Measured, 89.5, kg, 03/03/23 12:25:00 CDT, Weight Dosing Start Date: 03/03/23 Stop Date: 03/31/24 Status: Completed vancomycin 1 g intravenous injection IV, q12hr interval, prescribed by Dr Perdue, 0 Refill(s), Start Date: 10/21/18 8:45:00 AM MICROSOFT EXCHANGE ADMINISTRATOR Start Date: 10/21/18 Stop Date: 11/16/18 Status: Completed Zinc 140 mg (as elemental zinc 50 mg) oral tablet 1 tab(s), Oral, Daily, # 90 tab(s), 0 Refill(s), Start Date: 09/30/22 3:48:00 PM MICROSOFT EXCHANGE ADMINISTRATOR Start Date: 09/30/22 Stop Date: 06/21/24 Status: [...] Elbow surgery from elbow to forearm 14left [id number] procedure 16left 17LT Rotator Cuff Repair 18right 19RT Tendon Repair 20right side 21RT Wrist Surgery- Frzn wrist- 2 screws Social History Social History Type Response Sex Male Patient Care team information Personnel Name: Carlos Enrique Obando MD Address: Address: [id number] [place] [address]
--- OUTSIDE RECORDS SUMMARY | 2024-11-23 00:08 | XMS_ITS | Summary of Care ---
Author Organization [facility] Address [address] [place] [address] Care Team Providers Care Natural Resources Extension Educator Name Role Phone Saad Froylan Primary Care Physician Encounter Date(s): 12/17/22 - 12/17/22 [facility] [address] [place] [address]- Discharge Disposition: Discharged to Home or Self [...] tablet 0 Refill(s), Start Date: 11/18/22 13:27:00 ENGINEER SECOND ASSISTANT Start Date: 11/18/22 Status: Ordered baclofen 10 [...] tab(s), 0 Refill(s), Start Date: 11/09/18 18:34:00 ENGINEER SECOND ASSISTANT, Pharmacy: [facility] Start Date: 11/09/18 Stop Date: 12/16/18 Status: Completed ciprofloxacin 750 mg oral tablet 1 tab(s), Oral, q12hr, 2h away from dairy, X 14 days, # 28 tab(s), 2 Refill(s), Start Date: 09/19/18 14:21:00 ENGINEER SECOND ASSISTANT, Pharmacy: [facility] Start Date: 09/19/18 Stop Date: 11/09/18 [...] 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 daily 3 months 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, # 1 boxes, 0 Refill(s), 03/16/19 18:45:00 [...] tab(s), 3 Refill(s), Start Date: 12/20/18 13:37:00 ENGINEER SECOND ASSISTANT, Pharmacy: [facility] Start Date: 12/20/18 Stop [...] tab(s), 0 Refill(s), Start Date: 11/16/18 11:41:00 ENGINEER SECOND ASSISTANT,Pharmacy: [facility] Start Date: 11/16/18 Stop Date: 12/02/18 Status: Completed Medrol 4 mg oral tablet 1 packet(s), Oral, ONETIME, as directed on package labeling, # 21 tab(s), 0 Refill(s), Start Date: 11/18/22 13:39:00 ENGINEER SECOND ASSISTANT, Pharmacy: [facility], 173, cm, 11/18/22 13:25:00 ENGINEER SECOND ASSISTANT, Height/Length Measured, 86.3, kg, 11/18/22 13:27:00 ENGINEER SECOND ASSISTANT, Weight Dosing Start Date: 11/18/22 Status: Ordered MiraLax oral powder for reconstitution 17 gm, Oral, Daily, Dissolve in water before taking, # 255 gm, 0 Refill(s), Start Date: 05/21/18 10:05:00 CDT, Pharmacy: [facility] [id number] Start Date: 05/21/18 Status: Ordered MS Contin 15 mg oral tablet, extended release 2 tab(s), Oral, q12hr, # 28 tab(s), 0 Refill(s), Start Date: 05/21/18 10:04:00 CDT, Pharmacy: [facility] [id number] Start Date: 05/21/18 Stop Date: 09/09/18 Status: Completed MS Contin 30 mg oral tablet, extended release 1 tab(s), Oral, q12hr interval, 0 Refill(s), Start Date: 09/12/18 9:49:00 CDT Start Date: 09/12/18 Stop Date: 06/16/19 Status: Completed Multi-Day Plus Minerals oral tablet 1 tab(s), Oral, Daily, # 30 tab(s), 0 Refill(s), Start Date: 09/30/22 15:49:00 ENGINEER SECOND ASSISTANT Start Date: 09/30/22 Status: Ordered oxycodone-acetaminophen 10 mg-325 mg oral tablet 0 Refill(s), Start Date: 11/18/22 13:27:00 ENGINEER SECOND ASSISTANT Start Date: 11/18/22 Status: Ordered oxyCODONE-acetaminophen 10 [...] 0Refill(s), Start Date: 05/17/18 16:24:00 CDT, Pharmacy: [facility] [id number] Start Date: 05/17/18 Stop Date: 09/09/18 Status: Completed Percocet 5/325 oral tablet See Instructions, PRN PRN for pain, 1 tab(s) Oral q6hr not to exceed 4000 mg acetaminophen per day,# 60 tab(s), 0 Refill(s), Start Date: 09/14/18 9:23:00 CDT, Pharmacy: [facility] Start Date: 09/14/18 Stop Date: 06/16/19 Status: Completed Senokot S 50 mg-8.6 mg oral tablet 1 tab(s), Oral, BID, X 10 days, # 20 tab(s), 0 Refill(s), Start Date: 05/21/18 10:05:00 CDT, Pharmacy: [facility] [id number] Start Date: 05/21/18 Stop Date: 05/31/18 Status: Completed tamsulosin 0.4 mg oral capsule 1 cap(s), Oral, Daily, # 90 cap(s), 3 Refill(s), Start Date: 12/20/18 13:38:00 ENGINEER SECOND ASSISTANT, Pharmacy: [facility] Start Date: 12/20/18 Stop Date: 09/30/22 Status: Completed tamsulosin 0.4 mg oral capsule 1 cap(s), Oral, Daily, 0 Refill(s), Start Date: 09/09/18 7:57:00 CDT Start Date: 09/09/18 Stop Date: 12/20/18 Status: Discontinued vancomycin 1 g intravenous injection IV, q12hr interval, prescribed by Dr Perdue, 0 Refill(s), Start Date: 10/21/18 8:45:00 ENGINEER SECOND ASSISTANT Start Date: 10/21/18 Stop Date: 11/16/18 Status: Completed Zinc 140 mg (as elemental zinc 50 mg) oral tablet 1 tab(s), Oral, Daily, # 90 tab(s), 0 Refill(s), Start Date: 09/30/22 15:48:00 ENGINEER SECOND ASSISTANT Start Date: 09/30/22 Status: Ordered Immunizations Given [...]
--- OUTSIDE RECORDS SUMMARY | 2024-11-23 00:08 | XMS_ITS | Summary of Care ---
Author Organization [facility] Address [address] [place] [address] Care Team Providers Care Tomahawk Weapon System Operator Name Role Phone Froylan Nash Primary Care Physician Encounter Date(s): 11/18/22 - 11/18/22 [facility] [address] [place] [address]- Encounter Diagnosis Chronic pain syndrome(Discharge Diagnosis) - 11/18/22 Elbow pain(Discharge Diagnosis) - 11/18/22 Gait difficulty(Discharge Diagnosis) - 11/18/22 Discharge Disposition: 01 Discharged to Home or Self Care Attending Physician: MERON Jackson Referring Physician: MERON Jackson Vital Signs Most recent to oldest [Reference Range]: 1 Height/Length Measured 173 cm (11/18/22 1:25 PM) Weight Dosing 86.30 kg 1 (11/18/22 1:27 PM) Weight Measured 86.3 kg (11/18/22 1:25 PM) BSA Measured 2 m2 (11/18/22 1:25 PM) Body Mass Index Measured 28.83 kg/m2 (11/18/22 1:25 PM) 1Result Comment: This result was because the dosing weight was either not entered or it is >30 days old. This result is based off: Weight Measured November 18, 2022 13:25:00 HOUSEKEEPING AID by Eboni Ibrahim RN Problem List Condition Confirmation Course Effective [...] tablet 0 Refill(s), Start Date: 11/18/22 13:27:00 HOUSEKEEPING AID Start Date: 11/18/22 Status: Ordered baclofen 10 [...] tab(s), 0 Refill(s), Start Date: 11/09/18 18:34:00 HOUSEKEEPING AID, Pharmacy: [facility] Start Date: 11/09/18 Stop Date: 12/16/18 Status: Completed ciprofloxacin 750 mg oral tablet 1 tab(s), Oral, q12hr, 2h away from dairy, X 14 days, # 28 tab(s), 2 Refill(s), Start Date: 09/19/18 14:21:00 HOUSEKEEPING AID, Pharmacy: [facility] Start Date: 09/19/18 Stop Date: 11/09/18 [...] 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 daily 3 months 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, # 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, 0 Refill(s), 03/16/19 [...] tab(s), 3 Refill(s), Start Date: 12/20/18 13:37:00 HOUSEKEEPING AID, Pharmacy: [facility] Start Date: 12/20/18 Stop Date: [...] tab(s), 0 Refill(s), Start Date: 11/16/18 11:41:00 HOUSEKEEPING AID,Pharmacy: [facility] Start Date: 11/16/18 Stop Date: 12/02/18 Status: Completed Medrol 4 mg oral tablet 1 packet(s), Oral, ONETIME, as directed on package labeling, # 21 tab(s), 0 Refill(s), Start Date: 11/18/22 13:39:00 HOUSEKEEPING AID, Pharmacy: [facility], 173, cm, 11/18/22 13:25:00 HOUSEKEEPING AID, Height/Length Measured, 86.3, kg, 11/18/22 13:27:00 HOUSEKEEPING AID, Weight Dosing Start Date: 1/4/23 Status: Ordered MiraLax oral powder for reconstitution 17 gm, Oral, Daily, Dissolve in water before taking, # 255 gm, 0 Refill(s), Start Date: 05/21/18 10:05:00 CDT, [id number] Start Date: 05/21/18 Status: Ordered MS Contin 15 mg oral tablet, extended release 2 tab(s), Oral, q12hr, # 28 tab(s), 0 Refill(s), Start Date: 05/21/18 10:04:00 CDT, Pharmacy: [facility] [id number] Start Date: 05/21/18 Stop Date: 09/09/18 Status: Completed MS Contin 30 mg oral tablet, extended release 1 tab(s), Oral, q12hr interval, 0 Refill(s), Start Date: 09/12/18 9:49:00 CDT Start Date: 09/12/18 Stop Date: 06/16/19 Status: Completed Multi-Day Plus Minerals oral tablet 1 tab(s), Oral, Daily, # 30 tab(s), 0 Refill(s), Start Date: 09/30/22 15:49:00 HOUSEKEEPING AID Start Date: 09/30/22 Status: Ordered oxycodone-acetaminophen 10 mg-325 mg oral tablet 0 Refill(s), Start Date: 11/18/22 13:27:00 HOUSEKEEPING AID Start Date: 11/18/22 Status: Ordered oxyCODONE-acetaminophen 10 [...] 0Refill(s), Start Date: 05/17/18 16:24:00 CDT, Pharmacy: [facility] [id number] Start Date: 05/17/18 Stop Date: 09/09/18 Status: Completed Percocet 5/325 oral tablet See Instructions, PRN PRN for pain, 1 tab(s) Oral q6hr not to exceed 4000 mg acetaminophen per day,# 60 tab(s), 0 Refill(s), Start Date: 09/14/18 9:23:00 CDT, Pharmacy: [facility] Start Date: 09/14/18 Stop Date: 06/16/19 Status: Completed Senokot S 50 mg-8.6 mg oral tablet 1 tab(s), Oral, BID, X 10 days, # 20 tab(s), 0 Refill(s), Start Date: 05/21/18 10:05:00 CDT, Pharmacy: [facility] [id number] Start Date: 05/21/18 Stop Date: 05/31/18 Status: Completed tamsulosin 0.4 mg oral capsule 1 cap(s), Oral, Daily, # 90 cap(s), 3 Refill(s), Start Date: 12/20/18 13:38:00 HOUSEKEEPING AID, Pharmacy: [facility] Start Date: 12/20/18 Stop Date: 09/30/22 Status: Completed tamsulosin 0.4 mg oral capsule 1 cap(s), Oral, Daily, 0 Refill(s), Start Date: 09/09/18 7:57:00 CDT Start Date: 09/09/18 Stop Date: 12/20/18 Status: Discontinued vancomycin 1 g intravenous injection IV, q12hr interval, prescribed by Dr Perdue, 0 Refill(s), Start Date: 10/21/18 8:45:00 HOUSEKEEPING AID Start Date: 10/21/18 Stop Date: 11/16/18 Status: Completed Zinc 140 mg (as elemental zinc 50 mg) oral tablet 1 tab(s), Oral, Daily, # 90 tab(s), 0 Refill(s), Start Date: 09/30/22 15:48:00 HOUSEKEEPING AID Start Date: 09/30/22 Status: Ordered Results Most recent to oldest [Reference Range]: 1 Weight Measured 86.3 kg (11/18/22 1:25 PM) Height/Length Measured 173 cm (11/18/22 1:25 PM) Body Mass Index Measured 28.83 kg/m2 (11/18/22 1:25 PM) Immunizations Given and Recorded Vaccine Date [...] surgery 9 Completed Hip replacement 10 Comple loibto shoulder surgery 11 Compl eted Shoulder surgery [...]
--- OUTSIDE RECORDS SUMMARY | 2024-11-23 00:08 | XMS_ITS | Summary of Care ---
Author Organization [facility] Address [address] [place] [address] Care Team Providers Care Folded Cloth Taper Name Role Phone Froylan Nash Primary Care Physician Encounter Date(s): 11/18/22 - 11/18/22 [facility] [address] [place] [phone] [place] Discharge Disposition: 01 Discharged to [...] tablet 0 Refill(s), Start Date: 11/18/22 13:27:00 FARM ADVISER Start Date: 11/18/22 Status: Ordered baclofen 10 [...] tab(s), 0 Refill(s), Start Date: 11/09/18 18:34:00 FARM ADVISER, Pharmacy: [facility] Start Date: 11/09/18 Stop Date: 12/16/18 Status: Completed ciprofloxacin 750 mg oral tablet 1 tab(s), Oral, q12hr, 2h away from dairy, X 14 days, # 28 tab(s), 2 Refill(s), Start Date: 09/19/18 14:21:00 FARM ADVISER, Pharmacy: [facility] Start Date: 09/19/18 Stop Date: 11/09/18 [...] 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 daily 3 months 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, # 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, 0 Refill(s), 03/16/19 18:45:00 [...] tab(s), 3 Refill(s), Start Date: 12/20/18 13:37:00 FARM ADVISER, Pharmacy: [facility] Start Date: 12/20/18 Stop Date: [...] tab(s), 0 Refill(s), Start Date: 11/16/18 11:41:00 FARM ADVISER,Pharmacy: [facility] Start Date: 11/16/18 Stop Date: 12/02/18 Status: Completed Medrol 4 mg oral tablet 1 packet(s), Oral, ONETIME, as directed on package labeling, # 21 tab(s), 0 Refill(s), Start Date: 11/18/22 13:39:00 FARM ADVISER, Pharmacy: [facility], 173, cm, 11/18/22 13:25:00 FARM ADVISER, Height/Length Measured, 86.3, kg, 11/18/22 13:27:00 FARM ADVISER, Weight Dosing Start Date: 11/18/22 Status: Ordered MiraLax oral powder for reconstitution 17 gm, Oral, Daily, Dissolve in water before taking, # 255 gm, 0 Refill(s), Start Date: 05/21/18 10:05:00 CDT, Pharmacy: [id number] Start Date: 05/21/18 Status: Ordered MS Contin 15 mg oral tablet, extended release 2 tab(s), Oral, q12hr, # 28 tab(s), 0 Refill(s), Start Date: 05/21/18 10:04:00 CDT, Pharmacy: [id number] Start Date: 05/21/18 Stop Date: 09/09/18 Status: Completed MS Contin 30 mg oral tablet, extended release 1 tab(s), Oral, q12hr interval, 0 Refill(s), Start Date: 09/12/18 9:49:00 CDT Start Date: 09/12/18 Stop Date: 06/16/19 Status: Completed Multi-Day Plus Minerals oral tablet 1 tab(s), Oral, Daily, # 30 tab(s), 0 Refill(s), Start Date: 09/30/22 15:49:00 FARM ADVISER Start Date: 09/30/22 Status: Ordered oxycodone-acetaminophen 10 mg-325 mg oral tablet 0 Refill(s), Start Date: 11/18/22 13:27:00 FARM ADVISER Start Date: 11/18/22 Status: Ordered oxyCODONE-acetaminophen 10 [...] 0Refill(s), Start Date: 05/17/18 16:24:00 CDT, Pharmacy: [id number] Start Date: 05/17/18 Stop Date: 09/09/18 Status: Completed Percocet 5/325 oral tablet See Instructions, PRN PRN for pain, 1 tab(s) Oral q6hr not to exceed 4000 mg acetaminophen per day,# 60 tab(s), 0 Refill(s), Start Date: 09/14/18 9:23:00 CDT, Pharmacy: [facility] Start Date: 09/14/18 Stop Date: 06/16/19 Status: Completed Senokot S 50 mg-8.6 mg oral tablet 1 tab(s), Oral, BID, X 10 days, # 20 tab(s), 0 Refill(s), Start Date: 05/21/18 10:05:00 CDT, Pharmacy: [facility] [id number] Start Date: 05/21/18 Stop Date: 05/31/18 Status: Completed tamsulosin 0.4 mg oral capsule 1 cap(s), Oral, Daily, # 90 cap(s), 3 Refill(s), Start Date: 12/20/18 13:38:00 FARM ADVISER, Pharmacy: [facility] Start Date: 12/20/18 Stop Date: 09/30/22 Status: Completed tamsulosin 0.4 mg oral capsule 1 cap(s), Oral, Daily, 0 Refill(s), Start Date: 09/09/18 7:57:00 CDT Start Date: 09/09/18 Stop Date: 12/20/18 Status: Discontinued vancomycin 1 g intravenous injection IV, q12hr interval, prescribed by Dr Perdue, 0 Refill(s), Start Date: 10/21/18 8:45:00 FARM ADVISER Start Date: 10/21/18 Stop Date: 11/16/18 Status: Completed Zinc 140 mg (as elemental zinc 50 mg) oral tablet 1 tab(s), Oral, Daily, # 90 tab(s), 0 Refill(s), Start Date: 09/30/22 15:48:00 FARM ADVISER Start Date: 09/30/22 Status: Ordered Immunizations Given [...]
--- OUTSIDE RECORDS SUMMARY | 2024-11-23 00:09 | XMS_ITS | Summary of Care ---
Author Organization [facility] Address [address] [place] [address] Care Team Providers Care Integrity Director Name Role Phone Froylan Nash Primary Care Physician [phone] Encounter Date(s): 10/05/22 - 10/05/22 [facility] [place] [address] [place] [phone] [place] Discharge Disposition: Discharged to Home or Self Care Attending Physician: MERON Jackson Problem List Condition Confirmation [...] tab(s), 0 Refill(s), Start Date: 11/09/18 18:34:00 CUTTER GRINDER, Pharmacy: [facility] Start Date: 11/09/18 Stop Date: 12/16/18 Status: Completed ciprofloxacin 750 mg oral tablet 1 tab(s), Oral, q12hr, 2h away from dairy, X 14 days, # 28 tab(s), 2 Refill(s), Start Date: 09/19/18 14:21:00 CUTTER GRINDER, Pharmacy: [facility] Start Date: 09/19/18 Stop Date: 11/09/18 [...] 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 daily 3 months 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, # 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, 0 Refill(s), 03/16/19 18:45:00 [...] tab(s), 3 Refill(s), Start Date: 12/20/18 13:37:00 CUTTER GRINDER, Pharmacy: [facility] Start Date: 12/20/18 Stop Date: [...] tab(s), 0 Refill(s), Start Date: 11/16/18 11:41:00 CUTTER GRINDER,Pharmacy: [facility] Start Date: 11/16/18 Stop Date: 12/02/18 Status: Completed MiraLax oral powder for reconstitution 17 gm, Oral, Daily, Dissolve in water before taking, # 255 gm, 0 Refill(s), Start Date: 05/21/18 10:05:00 CDT, Pharmacy: [facility] [id number] Start Date: 05/21/18 Status: Ordered MS Contin 15 mg oral tablet, extended release 2 tab(s), Oral, q12hr, # 28 tab(s), 0 Refill(s), Start Date: 05/21/18 10:04:00 CDT, Pharmacy: [facility] [id number] Start Date: 05/21/18 Stop Date: 09/09/18 Status: Completed MS Contin 30 mg oral tablet, extended release 1 tab(s), Oral, q12hr interval, 0 Refill(s), Start Date: 09/12/18 9:49:00 CDT Start Date: 09/12/18 Stop Date: 06/16/19 Status: Completed Multi-Day Plus Minerals oral tablet 1 tab(s), Oral, Daily, # 30 tab(s), 0 Refill(s), Start Date: 09/30/22 15:49:00 CUTTER GRINDER Start Date: 09/30/22 Status: Ordered oxyCODONE-acetaminophen 10 [...] 0Refill(s), Start Date: 05/17/18 16:24:00 CDT, Pharmacy: [facility] [id number] Start Date: 05/17/18 Stop Date: 09/09/18 Status: Completed Percocet 5/325 oral tablet See Instructions, PRN PRN for pain, 1 tab(s) Oral q6hr not to exceed 4000 mg acetaminophen per day,# 60 tab(s), 0 Refill(s), Start Date: 09/14/18 9:23:00 CDT, Pharmacy: [facility] Start Date: 09/14/18 Stop Date: 06/16/19 Status: Completed Senokot S 50 mg-8.6 mg oral tablet 1 tab(s), Oral, BID, X 10 days, # 20 tab(s), 0 Refill(s), Start Date: 05/21/18 10:05:00 CDT, Pharmacy: [facility] [id number] Start Date: 05/21/18 Stop Date: 05/31/18 Status: Completed tamsulosin 0.4 mg oral capsule 1 cap(s), Oral, Daily, # 90 cap(s), 3 Refill(s), Start Date: 12/20/18 13:38:00 CUTTER GRINDER, Pharmacy: [facility] Start Date: 12/20/18 Stop Date: 09/30/22 Status: Completed tamsulosin 0.4 mg oral capsule 1 cap(s), Oral, Daily, 0 Refill(s), Start Date: 09/09/18 7:57:00 CDT Start Date: 09/09/18 Stop Date: 12/20/18 Status: Discontinued vancomycin 1 g intravenous injection IV, q12hr interval, prescribed by Dr Perdue, 0 Refill(s), Start Date: 10/21/18 8:45:00 CUTTER GRINDER Start Date: 10/21/18 Stop Date: 11/16/18 Status: Completed Zinc 140 mg (as elemental zinc 50 mg) oral tablet 1 tab(s), Oral, Daily, # 90 tab(s), 0 Refill(s), Start Date: 09/30/22 15:48:00 CUTTER GRINDER Start Date: 09/30/22 Status: Ordered Results Most recent to oldest [Reference Range]: 1 WBC [4.8-10.8 thou/mm3] 5.9 thou/mm3 (10/05/22 8:00 AM) RBC [4.60-6.00 Mil/mm3] 4.69 Mil/mm3 (10/05/22 8:00 AM) Neutrophils % Auto [50.0-75.0 %] 39.4 % *LOW* (10/05/22 8:00 AM) Lymphocytes % Auto [15.0-41.0 %] 43.1 % *HI* (10/05/22 8:00 AM) Monocytes % Auto [2.0-10.0 %] 9.8 % (10/05/22 8:00 AM) Eosinophils % Auto [0.0-6.0 %] 6.9 % *HI* (10/05/22 8:00 AM) Basophil % Auto [0.0-1.0 %] .5 % (10/05/22 8:00 AM) BUN [7-18 mg/dL] 21 mg/dL *HI* (10/05/22 8:00 AM) Cholesterol Total [0-200 mg/dL] 172 mg/d L (10/05/22 8:00 AM) A/G Ratio 1 *NA* (10/05/22 8:00 AM) Albumin Lvl [3.4-5.0 g/dL] 3.7 g/dL (10/05/22 8:00 AM) Alkaline Phosphatase [46-116 unit/L] 69 unit/L (10/05/22 8:00 AM) ALT [16-63 unit/L] 83 unit/L *HI* (10/05/22 8:00 AM) Anion Gap [5.0-15.0 mEq/L] 12.4 mEq/L (10/05/22 8:00 AM) AST [15-37 unit/L] 65 unit/L *HI* (10/05/22 8:00 AM) Basophil Absolute [0.0-0.1 thou/mm3] 0.0 thou/mm3 (10/05/22 8:00 AM) CO2 Lvl [21.0-32.0 mmol/L] 28.4 mmol/L (10/05/22 8:00 AM) Bilirubin Total [0.2-1.0 mg/dL] 0.9 mg/d L (10/05/22 8:00 AM) Calcium Lvl [8.5-10.1 mg/dL] 8.9 mg/dL (10/05/22 8:00 AM) Chloride Lvl [98-107 mEq/L] 103 mEq/L (10/05/22 8:00 AM) Creatinine Lvl [0.70-1.30 mg/dL] 0.86 mg /dL (10/05/22 8:00 AM) Estimated Average Glucose 128 mg/dL *NA* (10/05/22 8:00 AM) Eosinophil Absolute [0.0-0.7 thou/mm3] 0 .4 thou/mm3 (10/05/22 8:00 AM) Glucose Lvl [74-106 mg/dL] 113 mg/dL *HI* (10/05/22 8:00 AM) Hct [41.0-51.0 %] 45.1 % (10/05/22 8:00 AM) HDL Cholesterol [40-60 mg/dL] 43 mg/dL (10/05/22 8:00 AM) Hgb [14.0-17.0 g/dL] 15.0 g/dL (10/05/22 8:00 AM) Glycated Hemoglobin [3.8-5.6 %] 6.1 % *HI* (10/05/22 8:00 AM) Immature Granulocyte Auto [0.10-2.00 %] 0.30 % (10/05/22 8:00 AM) Immature Gran Absolute [0.000-0.031 thou /mm3] 0.020 thou/mm3 (10/05/22 8:00 AM) LDL Cholesterol [0-99 mg/dL] 104 mg/dL *HI* (10/05/22 8:00 AM) Lymphocytes Absolute [1.50-3.50 thou/mm3 ] 2.56 thou/mm3 (10/05/22 8:00 AM) MCH [25.0-38.0 pg] 32.0 pg (10/05/22 8:00 AM) MCHC [31.0-37.0 g/dL] 33.3 g/dL (10/05/22 8:00 AM) MCV [80.0-94.0 fL] 96.2 fL *HI* (10/05/22 8:00 AM) Monocytes Absolute [0.0-1.0 thou/mm3] 0. 6 thou/mm3 (10/05/22 8:00 AM) MPV 9.9 *NA* (10/05/22 8:00 AM) Neutrophils Absolute [1.3-6.0 thou/mm3] 2.3 thou/mm3 (10/05/22 8:00 AM) Platelet [130-400 thou/mm3] 203 thou/mm3 (10/05/22 8:00 AM) Potassium Lvl [3.5-5.1 mEq/L] 3.8 mEq/L (10/05/22 8:00 AM) PSA [0.00-4.00 ng/mL] 0.38 ng/mL (10/05/22 8:00 AM) RDW [11.6-14.4 %] 11.9 % (10/05/22 8:00 AM) Sodium Lvl [136-145 mEq/L] 140 mEq/L (10/05/22 8:00 AM) Total Protein [6.4-8.2 g/dL] 7.0 g/dL (10/05/22 8:00 AM) Triglyceride [<=150 mg/dL] 125 mg/dL (10/05/22 8:00 AM) TSH [0.358-3.740 mIU/mL] 2.774 mIU/mL (10/05/22 8:00 AM) eGFR AA [>=60] >60 (10/05/22 8:00 AM) eGFR DARCIE [>=60] >60 (10/05/22 8:00 AM) BUN/Creat Ratio [9.0-21.6] 24.4 *HI* (10/05/22 8:00 AM) Non HDL Cholesterol 129 *NA* (10/05/22 8:00 AM) Globulin 3 *NA* (10/05/22 8:00 AM) Immunizations Given and Recorded Vaccine Date Status Refusal Reason influenza virus vaccine, inactivated 09/15/18 Give n Procedures Procedure Date Related Diagnosis Body Site Status ROUTINE VENIPUNCTURE 10/05/22 Comp leted Application Wound Vac (Right , Ankle R) [...]
--- OUTSIDE RECORDS SUMMARY | 2024-11-23 00:09 | XMS_ITS | Continuity of Care Document ---
Author Organization [facility] Address [address] [facility] [address] [place] [address] Care Team Providers Care Cadd Drafter Name Role Phone Carlos Enrique Obando Primary Care Physician Encounter Date(s): 07/05/24 - [facility] [address] [place] [address]- Encounter Diagnosis Lumbar radiculopathy(Discharge Diagnosis) - 06/30/24 Discharge Disposition: 01 Discharged to Home or [...] Start Date: 04/22/23 10:25:00 AM CDT, Pharmacy: [facility], 173, cm, 04/09/23 15:48:00 CDT, [...] Start Date: 03/09/23 10:48:00 AM CDT, Pharmacy: [facility], 173, cm, 03/09/23 10:20:00 CDT, Height/Length Measured, 89.5, kg, 03/09/23 10:22:00 CDT, Weight Dosing Start Date: 03/09/23 Stop Date: 08/27/23 Status: Completed amLODIPine 5 mg oral tablet 1 tab(s), Oral, Daily, # 90 tab(s), 3 Refill(s), Start Date: 08/27/23 8:41:00 AM CDT, Pharmacy: [facility], 173, cm, 04/09/23 15:48:00 CDT, [...] Start Date: 03/09/23 10:49:00 AM CDT, Pharmacy: [facility], 173, cm, 03/09/23 10:20:00 CDT, Height/Length Measured, 89.5, kg, 03/09/23 10:22:00 CDT,Weight Dosing Start Date: 03/09/23 Stop Date: 04/22/23 Status: Completed baclofen 10 mg oral tablet 1 tab(s), Oral, TID, # 30 tab(s), 1 Refill(s), Start Date: 04/22/23 11:37:00 AM CDT, Pharmacy: [facility], 173, cm, 04/09/23 15:48:00 CDT, Height/Length Measured, 87.6, kg, 04/09/23 15:50:00 CDT, Weight Dosing Start Date: 04/22/23 Stop Date: 03/31/24 Status: Completed baclofen 10 mg oral tablet 0 Refill(s), Start Date: 11/18/22 1:27:00 PM RIDING SILKS CUSTODIAN Start Date: 11/18/22 Stop Date: 03/09/23 Status: Discontinued baclofen 10 mg oral tablet 1 tab(s), Oral, TID, PRN PRN for pain, 0 Refill(s), Start Date: 05/15/18 11:15:00 PM CDT Start Date: 05/15/18 Stop Date: 06/16/19 Status: Completed baclofen 10 mg tablet baclofen 10 mg tablet, 1 tab(s), Oral, TID, # 30 tab(s), 2 Refill(s), Pharmacy: [facility], 173, cm, 04/09/23 15:48:00 CDT, Height/Length Measured, 87.6, kg, 04/09/23 15:50:00 CDT, Weight Dosing Start Date: 06/08/23 Stop Date: 03/31/24 Status: Completed baclofen 10 mg tablet baclofen 10 mg tablet, 1 tab(s), Oral, TID, # 30 tab(s), 2 Refill(s), Pharmacy: [facility], 173, cm, 04/09/23 15:48:00 CDT, Height/Length Measured, [...] 0 Refill(s), Start Date: 11/09/18 6:34:00 PM RIDING SILKS CUSTODIAN, [facility]acy: [facility] Start Date: 11/09/18 Stop Date: 12/16/18 Status: Completed ciprofloxacin 750 mg oral tablet 1 tab(s), Oral, q12hr, 2h away from dairy, X 14 days, # 28 tab(s), 2 Refill(s), Start Date: 182:21:00 PM RIDING SILKS CUSTODIAN, Pharmacy: [facility] Start Date: 09/19/18 Stop Date: 11/09/18 [...] 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 daily 3 months 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, # 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, 0 Refill(s), 03/16/19 [...] 3 Refill(s), Start Date: 12/20/18 1:37:00 PM RIDING SILKS CUSTODIAN, Pharmacy: [facility] Start Date: 12/20/18 Stop Date: 09/30/22 Status: Completed finasteride 5 mg oral tablet 1 tab(s), Oral, Daily, # 30 tab(s), 0 Refill(s), Start Date: 03/31/24 10:43:00 AM CDT Start Date: 03/31/24 Stop Date: 06/21/24 Status: Completed fluticasone 50 mcg/inh nasal spray 2 spray(s), Nasal, BID, X 42 days, # 16 gm, 11 Refill(s), Start Date: 04/03/24 11:55:00 AM CDT, Pharmacy: [facility], 173, cm, 03/31/24 10:46:00 CDT, Height/Length Measured, [...] Start Date: 04/19/24 10:19:00 AM CDT, Pharmacy: [facility] #[id number], 173, cm, 03/31/24 10:46:00 CDT, Height/Length Measured, 88.2, kg, 03/31/24 10:51:00 CDT, Weight Dosing Start Date: 04/19/24 Stop Date: 06/21/24 Status: Completed ibuprofen 600 mg oral tablet 1 tab(s), Oral, QID, PRN PRN for pain, with food or milk, # 30 tab(s), 0 Refill(s), Start Date: 03/03/23 1:53:00 PM CDT, Pharmacy: [facility], 173, cm, 11/18/22 13:25:00 RIDING SILKS CUSTODIAN, Height/Length Measured, 89.5, kg, 03/03/23 12:25:00 CDT, [...] Start Date: 03/31/24 11:26:00 AM CDT, Pharmacy: [facility], 173, cm, 03/31/24 10:46:00 CDT, Height/Length Measured, 88.2, kg, 03/31/24 10:51:00 CDT, Weight Dosing Start Date: 03/31/24 Stop Date: 04/11/24 Status: Completed levoFLOXacin 500 mg oral tablet 1 tab(s), Oral, Daily, For chronic recurrent sinusitis, X 10 days, # 10 tab(s), 0 Refill(s), Start Date: 04/11/24 3:29:00 PM CDT, Pharmacy: [facility], 173, cm, 03/31/24 10:46:00 CDT, Height/Length Measured, 88.2, kg, 03/31/24 10:51:00 CDT, Weight Dosing Start Date: 04/11/24 Stop Date: 04/19/24 Status: Completed levoFLOXacin 500 mg oral tablet 1 tab(s), Oral, Daily, For chronic recurrent sinusitis, # 10 tab(s), 0 Refill(s), Start Date: 04/19/24 10:19:00 AM CDT, Pharmacy: [facility] #[id number], 173, cm, 03/31/24 10:46:00 CDT, Height/Length Measured, 88.2, kg, 03/31/24 10:51:00 CDT, Weight Dosing Start Date: 04/19/24 Stop Date: 06/06/24 Status: Completed linezolid 600 mg oral tablet 1 tab(s), Oral, q12hr, generic please, # 28 tab(s), 0 Refill(s), Start Date: 11/16/18 11:41:00 AM RIDING SILKS CUSTODIAN, Pharmacy: [facility] Start Date: 11/16/18 Stop Date: 12/02/18 Status: Completed Medrol 4 mg oral tablet 1 packet(s), Oral, ONETIME, as directed on package labeling, # 21 tab(s), 0 Refill(s), Start Date: 11/18/22 1:39:00 PM RIDING SILKS CUSTODIAN, Pharmacy: [facility], 173, cm, 11/18/22 13:25:00 RIDING SILKS CUSTODIAN, Height/Length Measured, 86.3, kg, 11/18/22 13:27:00 RIDING SILKS CUSTODIAN, Weight Dosing Start Date: 11/18/22 Stop Date: 03/09/23 Status: Completed metFORMIN 500 mg oral tablet 0.5 tab(s), Oral, BID, # 30 tab(s), 11 Refill(s), Start Date: 04/03/24 11:56:00 AM CDT, Pharmacy: [facility], 173, cm, 03/31/24 10:46:00 CDT, Height/Length Measured, 88.2, kg, 03/31/24 10:51:00 CDT, Weight Dosing Start Date: 04/03/24 Stop Date: 04/19/24 Status: Completed metFORMIN 500 mg oral tablet 0.5 tab(s), Oral, BID, # 30 tab(s), 11 Refill(s), Start Date: 04/19/24 10:19:00 AM CDT, Pharmacy: [facility] #[id number], 173, cm, 03/31/24 10:46:00 CDT, Height/Length Measured, 88.2, kg, 03/31/2410:51:00 CDT, Weight Dosing Start Date: 04/19/24 Stop Date: 06/21/24 Status: Completed MiraLax oral powder for reconstitution 17 gm, Oral, Daily, Dissolve in water before taking, # 255 gm, 0 Refill(s), Start Date: 05/21/18 10:05:00 AM CDT, Pharmacy: [facility] [id number] Start Date: 05/21/18 Stop Date: 03/31/24 Status: Completed MS Contin 15 mg oral tablet, extended release 2 tab(s), Oral, q12hr, # 28 tab(s), 0 Refill(s), Start Date: 05/21/18 10:04:00 AM CDT, Pharmacy: [facility] [id number] Start Date: 05/21/18 Stop Date: 09/09/18 Status: Completed MS Contin 30 mg oral tablet, extended release 1 tab(s), Oral, q12hr interval, 0 Refill(s), Start Date: 09/12/18 9:49:00 AM CDT Start Date: 09/12/18 Stop Date: 06/16/19 Status: Completed Multi-Day Plus Minerals oral tablet 1 tab(s), Oral, Daily, # 30 tab(s), 0 Refill(s), Start Date: 09/30/22 3:49:00 PM RIDING SILKS CUSTODIAN Start Date: 09/30/22 Stop Date: 06/21/24 Status: Completed oxycodone-acetaminophen 10 mg-325 mg oral tablet 0 Refill(s), Start Date: 11/18/22 1:27:00 PM RIDING SILKS CUSTODIAN Start Date: 11/18/22 Stop Date: 04/09/23 Status: [...] Start Date: 05/17/18 4:24:00 PM CDT, Pharmacy: [facility] [id number] Start Date: 05/17/18 Stop Date: 09/09/18 Status: Completed Percocet 5/325 oral tablet See Instructions, PRN PRN for pain, 1 tab(s) Oral q6hr not to exceed 4000 mg acetaminophen per day,# 60 tab(s), 0 Refill(s), Start Date: 09/14/18 9:23:00 AM CDT, Pharmacy: [facility] Start Date: 09/14/18 Stop Date: 06/16/19 Status: Completed pregabalin 75 mg oral capsule 1 cap(s), Oral, BID, 0 Refill(s), Start Date: 03/31/24 10:44:00 AM CDT Start Date: 03/31/24 Status: Ordered Senokot S 50 mg-8.6 mg oral tablet 1 tab(s), Oral, BID, X 10 days, # 20 tab(s), 0 Refill(s), Start Date: 05/21/18 10:05:00 AM CDT, [facility] [id number] Start Date: 05/21/18 Stop Date: 05/31/18 Status: Completed tamsulosin 0.4 mg oral capsule 1 cap(s), Oral, Daily, # 90 cap(s), 3 Refill(s), Start Date: 12/20/18 1:38:00 PM RIDING SILKS CUSTODIAN, Pharmacy: [facility] Start Date: 12/20/18 Stop [...] Start Date: 03/03/23 1:54:00 PM CDT, Pharmacy: [facility], 173, cm, 11/18/22 13:25:00 RIDING SILKS CUSTODIAN, Height/Length Measured, 89.5, kg, 03/03/23 12:25:00 CDT, Weight Dosing Start Date: 03/03/23 Stop Date: 03/31/24 Status: Completed vancomycin 1 g intravenous injection IV, q12hr interval, prescribed by Dr Perdue, 0 Refill(s), Start Date: 10/21/18 8:45:00 AM RIDING SILKS CUSTODIAN Start Date: 10/21/18 Stop Date: 11/16/18 Status: Completed Zinc 140 mg (as elemental zinc 50 mg) oral tablet 1 tab(s), Oral, Daily, # 90 tab(s), 0 Refill(s), Start Date: 09/30/22 3:48:00 PM RIDING SILKS CUSTODIAN Start Date: 09/30/22 Stop Date: 06/21/24 Status: [...] Elbow surgery from elbow to forearm 14left [id number] procedure 16left 17LT Rotator Cuff Repair 18right 19RT Tendon Repair 20right side 21RT Wrist Surgery- Frzn wrist- 2 screws Results Most recent to oldest [Reference Range]: 1 Weight Measured 85.2 kg (07/05/24 10:30 AM) Height/Length Measured 173 cm (07/05/24 10:30 AM) Body Mass Index Measured 28.47 kg/m2 (07/05/24 10:30 AM) Vital Signs Most recent to oldest [Reference Range]: 1 Height/Length Measured 173 cm (07/05/24 10:30 AM) Weight Dosing 85.20 kg 1 (07/05/24 10:35 AM) Weight Measured 85.2 kg (07/05/24 10:30 AM) BSA Measured 1.99 m2 (07/05/24 10:30 AM) Body Mass Index Measured 28.47 kg/m2 (07/05/24 10:30 AM) 1Result Comment: This result was because the dosing weight was either not entered or it is >30 days old. This result is based off: Weight Measured July 05, 2024 10:30:00 CDT by Penny Lopez CMA Social History Social History Type Response Sex Male Patient Care team information Personnel Name: Carlos Enrique Obando MD Address: Address: [address] [place] [address]
--- OUTSIDE RECORDS SUMMARY | 2024-11-23 00:09 | XMS_ITS | Continuity of Care Document ---
Author Organization [facility] Address [address] [facility] [address] [place] [address] Care Team Providers Care Agriculture Sales Account Manager Name Role Phone Carlos Enrique Obando Primary Care Physician Encounter Date(s): 07/31/24 - 07/31/[address] [facility] [address] [place] [address]- Discharge Disposition: Discharged to Home or Self [...] Start Date: 08/27/23 8:41:00 AM CDT, Pharmacy: [facility], 173, cm, 04/09/23 15:48:00 CDT, Height/Length [...] Start Date: 07/26/24 3:47:00 PM CDT, Pharmacy: [facility] #[id number], 173, cm, 07/26/24 15:14:00 CDT, Height/Length Measured, [...] Start Date: 07/07/24 11:58:00 AM CDT, Pharmacy: [facility] #[id number], 173, cm, 07/07/24 9:24:00 CDT, Height/Length Measured, 88.2, kg, 07/07/24 9:25:00 CDT, Weight Dosing Start Date: 07/07/24 Status: Ordered baclofen 10 mg oral tablet 1 tab(s), Oral, TID, # 30 tab(s), 0 Refill(s), Start Date: 03/09/23 10:49:00 AM CDT, [facility], cm, 03/09/23 10:20:00 CDT, Height/Length Measured, 89.5, kg, 03/09/23 10:22:00 CDT,Weight Dosing Start Date: 03/09/23 Stop Date: 04/22/23 Status: Completed baclofen 10 mg oral tablet 1 tab(s), Oral, TID, # 30 tab(s), 1 Refill(s), Start Date: 04/22/23 11:37:00 AM CDT, Pharmacy: [facility], 173, cm, 04/09/23 15:48:00 CDT, Height/Length Measured, 87.6, kg, 04/09/23 15:50:00 CDT, Weight Dosing Start Date: 04/22/23 Stop Date: 03/31/24 Status: Completed baclofen 10 mg oral tablet 0 Refill(s), Start Date: 11/18/22 1:27:00 PM SOUND TECHNICIAN SUPERVISOR Start Date: 11/18/22 Stop Date: 03/09/23 Status: [...] TID, # 30 tab(s), 2 Refill(s), Pharmacy: [facility], 173, cm, 04/09/23 15:48:00 CDT, Height/Length Measured, 87.6, kg, 04/09/23 15:50:00 CDT, Weight Dosing Start Date: 06/18/23 Stop Date: 03/31/24 Status: Completed carisoprodol 250 mg oral tablet 1 tab(s), Oral, BID, # 60 tab(s), 5 Refill(s), Start Date: 07/26/24 3:47:00 PM CDT, Pharmacy: [facility] #[id number], 173, cm, 07/26/24 15:14:00 CDT, Height/Length Measured, [...] 0 Refill(s), Start Date: 11/09/18 6:34:00 PM SOUND TECHNICIAN SUPERVISOR, Pharmacy: [facility] Start Date: 11/09/18 Stop Date: 12/16/18 Status: Completed ciprofloxacin 750 mg oral tablet 1 tab(s), Oral, q12hr, 2h away from dairy, X 14 days, # 28 tab(s), 2 Refill(s), Start Date: :21:00 PM SOUND TECHNICIAN SUPERVISOR, Pharmacy: [facility] Start Date: 09/19/18 Stop Date: 11/09/18 [...] 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 daily 3 months 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, # 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, 0 Refill(s), 03/16/19 [...] 3 Refill(s), Start Date: 12/20/18 1:37:00 PM [facility], Pharmacy: [facility] Start Date: [...] Start Date: 04/19/24 10:19:00 AM CDT, [id number], 173, cm, 03/31/24 10:46:00 CDT, Height/Length Measured, 88.2, kg, 03/31/24 10:51:00 CDT, Weight Dosing Start Date: 04/19/24 Stop Date: 06/21/24 Status: Completed gabapentin 300 mg oral capsule 1 cap(s), Oral, TID, # 90 cap(s), 11 Refill(s), Start Date: 07/07/24 10:05:00 AM CDT, Pharmacy: [facility] #[id number], 173, cm, 07/07/24 9:24:00 CDT, Height/Length Measured, 88.2, kg, 07/07/24 9:25:00 CDT, Weight Dosing Start Date: 07/07/24 Stop Date: 07/11/24 Status: Discontinued hydrocodone-acetaminophen 5 mg-325 mg oral tablet See Instructions, /2 to 1 tab(s) Oral TID, # 60 tab(s), 0 Refill(s), Start Date: 07/11/24 2:53:00 PM CDT, [facility]acy: [facility] #[id number], 173, cm, 07/07/24 9:24:00 CDT, Height/Length Measured,88.2, kg, 07/07/24 9:25:00 CDT, Weight Dosing Start Date: 07/11/24 Stop Date: 07/26/24 Status: Discontinued ibuprofen 600 mg oral tablet 1 tab(s), Oral, QID, PRN PRN for pain, with food or milk, # 30 tab(s), 0 Refill(s), Start Date: 03/03/23 1:53:00 PM CDT, Pharmacy: [facility], 173, cm, 11/18/22 13:25:00 SOUND TECHNICIAN SUPERVISOR, Height/Length Measured, 89.5, kg, 03/03/23 12:25:00 CDT, [...] Start Date: 07/07/24 10:05:00 AM CDT, Pharmacy: [facility] #[id number], 173, cm, 07/07/24 9:24:00 CDT, Height/Length Measured, [...] Start Date: 03/31/24 11:26:00 AM CDT, Pharmacy: [facility], 173, cm, 03/31/24 10:46:00 CDT, Height/Length [...] Start Date: 04/19/24 10:19:00 AM CDT, Pharmacy: [facility] #[id number], 173, cm, 03/31/24 10:46:00 CDT, Height/Length Measured, 88.2, kg, 03/31/24 10:51:00 CDT, Weight Dosing Start Date: 04/19/24 Stop Date: 06/06/24 Status: Completed linezolid 600 mg oral tablet 1 tab(s), Oral, q12hr, generic please, # 28 tab(s), 0 Refill(s), Start Date: 11/16/18 11:41:00 AM SOUND TECHNICIAN SUPERVISOR, Pharmacy: [facility] Start Date: 11/16/18 Stop Date: 12/02/18 Status: Completed Medrol 4 mg oral tablet 1 packet(s), Oral, ONETIME, as directed on package labeling, # 21 tab(s), 0 Refill(s), Start Date: 11/18/22 1:39:00 PM SOUND TECHNICIAN SUPERVISOR, Pharmacy: [facility], 173, cm, 11/18/22 13:25:00 SOUND TECHNICIAN SUPERVISOR, Height/Length Measured, 86.3, kg, 11/18/22 13:27:00 SOUND TECHNICIAN SUPERVISOR, Weight Dosing Start Date: 11/18/22 Stop Date: [...] Start Date: 04/19/24 10:19:00 AM CDT, [id number], 173, cm, 03/31/24 10:46:00 CDT, Height/Length Measured, 88.2, kg, 03/31/2410:51:00 CDT, Weight Dosing Start Date: 04/19/24 Stop Date: 06/21/24 Status: Completed metFORMIN 500 mg oral tablet 1 tab(s), Oral, BID, # 180 tab(s), 3 Refill(s), Start Date: 07/07/24 11:58:00 AM CDT, Pharmacy: [facility] #[id number], 173, cm, 07/07/24 9:24:00 CDT, Height/Length Measured, 88.2, kg, 07/07/24 9:25:00 CDT, Weight Dosing Start Date: 07/07/24 Status: Ordered MiraLax oral powder for reconstitution 17 gm, Oral, Daily, Dissolve in water before taking, # 255 gm, 0 Refill(s), Start Date: 05/21/18 10:05:00 AM CDT, Pharmacy: [facility] [id number] Start Date: 05/21/18 Stop Date: 03/31/24 Status: Completed MS Contin 15 mg oral tablet, extended release 2 tab(s), Oral, q12hr, # 28 tab(s), 0 Refill(s), Start Date: 05/21/18 10:04:00 AM CDT, Pharmacy: [facility] [id number] Start Date: 05/21/18 Stop Date: 09/09/18 Status: Completed MS Contin 30 mg oral tablet, extended release 1 tab(s), Oral, q12hr interval, 0 Refill(s), Start Date: 09/12/18 9:49:00 AM CDT Start Date: 09/12/18 Stop Date: 06/16/19 Status: Completed Multi-Day Plus Minerals oral tablet 1 tab(s), Oral, Daily, # 30 tab(s), 0 Refill(s), Start Date: 09/30/22 3:49:00 PM SOUND TECHNICIAN SUPERVISOR Start Date: 09/30/22 Stop Date: 06/21/24 Status: Completed Narcan 4 mg/0.1 mL nasal spray 1 spray(s), Nasal, ONETIME, # 2 EA, 11 Refill(s), Start Date: 07/07/24 10:15:00 AM CDT, Pharmacy: [facility] #[id number], 173, cm, 07/07/24 9:24:00 CDT, Height/Length Measured, 88.2, kg, 249:25:00 CDT, Weight Dosing Start Date: 07/07/24 Stop Date: 07/26/24 Status: Discontinued oxycodone-acetaminophen 10 mg-325 mg oral tablet 0 Refill(s), Start Date: 11/18/22 1:27:00 PM SOUND TECHNICIAN SUPERVISOR Start Date: 11/18/22 Stop Date: 04/09/23 Status: [...] Start Date: 07/07/24 10:05:00 AM CDT, Pharmacy: [facility] #[id number], 173, cm, 07/07/24 9:24:00 CDT, Height/Length Measured, [...] Start Date: 05/17/18 4:24:00 PM CDT, Pharmacy: [facility] [id number] Start Date: 05/17/18 Stop Date: 09/09/18 Status: Completed Percocet 5/325 oral tablet See Instructions, PRN PRN for pain, 1 tab(s) Oral q6hr not to exceed 4000 mg acetaminophen per day,# 60 tab(s), 0 Refill(s), Start Date: 09/14/18 9:23:00 AM CDT, Pharmacy: [facility] Start Date: 09/14/18 Stop Date: 06/16/19 Status: Completed predniSONE 10 mg oral tablet 3 tab(s), Oral, BID, For inflammation and pain, # 84 tab(s), 0 Refill(s), Start Date: 07/26/24 3:47:00 PM CDT, Pharmacy: [facility] #[id number], 173, cm, 07/26/24 15:14:00 CDT, Height/Length Measured, [...] Start Date: 05/21/18 10:05:00 AM CDT, Pharmacy: [facility] [id number] Start Date: 05/21/18 Stop Date: 05/31/18 Status: Completed tamsulosin 0.4 mg oral capsule 1 cap(s), Oral, Daily, # 90 cap(s), 3 Refill(s), Start Date: 12/20/18 1:38:00 PM SOUND TECHNICIAN SUPERVISOR, Pharmacy: [facility] Start Date: [...] [facility], 173, cm, 11/18/22 13:25:00 SOUND TECHNICIAN SUPERVISOR, Height/Length Measured, 89.5, kg, 03/03/23 12:25:00 CDT, Weight Dosing Start Date: 03/03/23 Stop Date: 03/31/24 Status: Completed vancomycin 1 g intravenous injection IV, q12hr interval, prescribed by Dr Perdue, 0 Refill(s), Start Date: 10/21/18 8:45:00 AM SOUND TECHNICIAN SUPERVISOR Start Date: 10/21/18 Stop Date: 11/16/18 Status: Completed Zinc 140 mg (as elemental zinc 50 mg) oral tablet 1 tab(s), Oral, Daily, # 90 tab(s), 0 Refill(s), Start Date: 09/30/22 3:48:00 PM SOUND TECHNICIAN SUPERVISOR Start Date: 09/30/22 Stop Date: 06/21/24 Status: [...] Elbow surgery from elbow to forearm 14left [id number] procedure 16left 17LT Rotator Cuff Repair 18right 19RT Tendon Repair 20right side 21RT Wrist Surgery- Frzn wrist- 2 screws Social History Social History Type Response Sex Male Patient Care team information Personnel Name: Carlos Enrique Obando MD Address: Address: [address] [place] [address]
--- OUTSIDE RECORDS SUMMARY | 2024-11-23 00:09 | XMS_ITS | Continuity of Care Document ---
Author Organization [facility] Address [address] [place] [address] Care Team Providers Care Router Tender Name Role Phone Carlos Enrique Obando Primary Care Physician Encounter Date(s): 08/07/24 - 08/07/24 [facility] [address] [place] [address] us Discharge Disposition: Discharged to Home or [...] Start Date: 04/22/23 10:25:00 AM CDT, Pharmacy: [facility], 173, cm, 04/09/23 15:48:00 CDT, Height/Length [...] Start Date: 03/09/23 10:48:00 AM CDT, Pharmacy: [facility], 173, cm, 03/09/23 10:20:00 CDT, Height/Length Measured, 89.5, kg, 03/09/23 10:22:00 CDT, Weight Dosing Start Date: 03/09/23 Stop Date: 08/27/23 Status: Completed amLODIPine 5 mg oral tablet 1 tab(s), Oral, Daily, # 90 tab(s), 3 Refill(s), Start Date: 08/27/23 8:41:00 AM CDT, Pharmacy: [facility], 173, cm, 04/09/23 15:48:00 CDT, Height/Length [...] Start Date: 07/26/24 3:47:00 PM CDT, Pharmacy: [facility] #[id number], 173, cm, 07/26/24 15:14:00 CDT, Height/Length Measured, [...] Start Date: 07/07/24 11:58:00 AM CDT, Pharmacy: [facility] #[id number], 173, cm, 07/07/24 9:24:00 CDT, Height/Length Measured, 88.2, kg, 07/07/24 9:25:00 CDT, Weight Dosing Start Date: 07/07/24 Status: Ordered baclofen 10 mg oral tablet 1 tab(s), Oral, TID, # 30 tab(s), 0 Refill(s), Start Date: 03/09/23 10:49:00 AM CDT, Pharmacy: [facility], 173, cm, 03/09/23 10:20:00 CDT, Height/Length Measured, 89.5, kg, 03/09/23 10:22:00 CDT,Weight Dosing Start Date: 03/09/23 Stop Date: 04/22/23 Status: Completed baclofen 10 mg oral tablet 1 tab(s), Oral, TID, # 30 tab(s), 1 Refill(s), Start Date: 04/22/23 11:37:00 AM CDT, [facility], 173, cm, 04/09/23 15:48:00 CDT, Height/Length Measured, 87.6, kg, 04/09/23 15:50:00 CDT, Weight Dosing Start Date: 04/22/23 Stop Date: 03/31/24 Status: Completed baclofen 10 mg oral tablet 0 Refill(s), Start Date: 11/18/22 1:27:00 PM PHARMACY TECHNICIAN PROGRAM DIRECTOR Start Date: 11/18/22 Stop Date: 03/09/23 Status: Discontinued baclofen 10 mg oral tablet 1 tab(s), Oral, TID, PRN PRN for pain, 0 Refill(s), Start Date: 05/15/18 11:15:00 PM CDT Start Date: 05/15/18 Stop Date: 06/16/19 Status: Completed baclofen 10 mg tablet baclofen 10 mg tablet, 1 tab(s), Oral, TID, # 30 tab(s), 2 Refill(s), Pharmacy: [facility], 173, cm, 04/09/23 15:48:00 CDT, Height/Length Measured, 87.6, kg, 04/09/23 15:50:00 CDT, Weight Dosing Start Date: 06/08/23 Stop Date: 03/31/24 Status: Completed baclofen 10 mg tablet baclofen 10 mg tablet, 1 tab(s), Oral, TID, # 30 tab(s), 2 Refill(s), Pharmacy: [facility], 173, cm, 04/09/23 15:48:00 CDT, Height/Length Measured, 87.6, kg, 04/09/23 15:50:00 CDT, Weight Dosing Start Date: 06/18/23 Stop Date: 03/31/24 Status: Completed carisoprodol 250 mg oral tablet 1 tab(s), Oral, BID, # 60 tab(s), 5 Refill(s), Start Date: 07/26/24 3:47:00 PM CDT, Pharmacy: [facility] #[id number], 173, cm, 07/26/24 15:14:00 CDT, Height/Length Measured, [...] 0 Refill(s), Start Date: 11/09/18 6:34:00 PM PHARMACY TECHNICIAN PROGRAM DIRECTOR, Pharmacy: [facility] Start Date: 11/09/18 Stop Date: 12/16/18 Status: Completed ciprofloxacin 750 mg oral tablet 1 tab(s), Oral, q12hr, 2h away from dairy, X 14 days, # 28 tab(s), 2 Refill(s), Start Date: 182:21:00 PM PHARMACY TECHNICIAN PROGRAM DIRECTOR, Pharmacy: [facility] Start Date: 09/19/18 Stop Date: 11/09/18 [...] 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 daily 3 months 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, 173, cm, 03/31/24 10:46:00 CDT, Height/Length Measured, 88.2, kg, 03/31/24 10:51:00 CDT, Weight Dosing Start Date: 04/19/24 Stop Date: 06/21/24 Status: Completed gabapentin 300 mg oral capsule 1 cap(s), Oral, TID, # 90 cap(s), 11 Refill(s), Start Date: 07/07/24 10:05:00 AM CDT, Pharmacy: [facility] #[id number], 173, cm, 07/07/24 9:24:00 CDT, Height/Length Measured, 88.2, kg, 07/07/24 9:25:00 CDT, Weight Dosing Start Date: 07/07/24 Stop Date: 07/11/24 Status: Discontinued hydrocodone-acetaminophen 5 mg-325 mg oral tablet See Instructions, 1/2 to 1 tab(s) Oral TID, # 60 tab(s), 0 Refill(s), Start Date: 07/11/24 2:53:00 PM CDT, Pharmacy: [facility] #[id number], 173, cm, 07/07/24 9:24:00 CDT, Height/Length Measured,88.2, kg, 07/07/24 9:25:00 CDT, Weight Dosing Start Date: 07/11/24 Stop Date: 07/26/24 Status: Discontinued ibuprofen 600 mg oral tablet 1 tab(s), Oral, QID, PRN PRN for pain, with food or milk, # 30 tab(s), 0 Refill(s), Start Date: 03/03/23 1:53:00 PM CDT, Pharmacy: [facility], 173, cm, 11/18/22 13:25:00 PHARMACY TECHNICIAN PROGRAM DIRECTOR, Height/Length Measured, 89.5, kg, 03/03/23 12:25:00 [...] Start Date: 07/07/24 10:05:00 AM CDT, Pharmacy: [facility] #[id number], 173, cm, 07/07/24 9:24:00 CDT, Height/Length Measured, [...] Start Date: 03/31/24 11:26:00 AM CDT, Pharmacy: [facility], 173, cm, 03/31/24 10:46:00 CDT, Height/Length Measured, 88.2, kg, 03/31/24 10:51:00 CDT, Weight Dosing Start Date: 03/31/24 Stop Date: 04/11/24 Status: Completed levoFLOXacin 500 mg oral tablet 1 tab(s), Oral, Daily, For chronic recurrent sinusitis, X 10 days, # 10 tab(s), 0 Refill(s), Start Date: 04/11/24 3:29:00 PM CDT, Pharmacy: [facility], 173, cm, 03/31/24 10:46:00 CDT, Height/Length Measured, 88.2, kg, 03/31/24 10:51:00 CDT, Weight Dosing Start Date: 04/11/24 Stop Date: 04/19/24 Status: Completed levoFLOXacin 500 mg oral tablet 1 tab(s), Oral, Daily, For chronic recurrent sinusitis, # 10 tab(s), 0 Refill(s), Start Date: 04/19/24 10:19:00 AM CDT, Pharmacy: [facility] #[id number], 173, cm, 03/31/24 10:46:00 CDT, Height/Length Measured, 88.2, kg, 03/31/24 10:51:00 CDT, Weight Dosing Start Date: 04/19/24 Stop Date: 06/06/24 Status: Completed linezolid 600 mg oral tablet 1 tab(s), Oral, q12hr, generic please, # 28 tab(s), 0 Refill(s), Start Date: 11/16/18 11:41:00 AM PHARMACY TECHNICIAN PROGRAM DIRECTOR, Pharmacy: [facility] Start Date: 11/16/18 Stop Date: 12/02/18 Status: Completed Medrol 4 mg oral tablet 1 packet(s), Oral, ONETIME, as directed on package labeling, # 21 tab(s), 0 Refill(s), Start Date: 11/18/22 1:39:00 PM PHARMACY TECHNICIAN PROGRAM DIRECTOR, Pharmacy: [facility], 173, cm, 11/18/22 13:25:00 PHARMACY TECHNICIAN PROGRAM DIRECTOR, Height/Length Measured, 86.3, kg, 11/18/22 13:27:00 PHARMACY TECHNICIAN PROGRAM DIRECTOR, Weight Dosing Start Date: 11/18/22 Stop [...] Start Date: 04/19/24 10:19:00 AM CDT, Pharmacy: [facility] #[id number], 173, cm, 03/31/24 10:46:00 CDT, Height/Length Measured, 88.2, kg, 03/31/2410:51:00 CDT, Weight Dosing Start Date: 04/19/24 Stop Date: 06/21/24 Status: Completed metFORMIN 500 mg oral tablet 1 tab(s), Oral, BID, # 180 tab(s), 3 Refill(s), Start Date: 07/07/24 11:58:00 AM CDT, Pharmacy: [facility] #[id number], 173, cm, 07/07/24 9:24:00 CDT, Height/Length Measured, 88.2, kg, 07/07/24 9:25:00 CDT, Weight Dosing Start Date: 07/07/24 Status: Ordered MiraLax oral powder for reconstitution 17 gm, Oral, Daily, Dissolve in water before taking, # 255 gm, 0 Refill(s), Start Date: 05/21/18 10:05:00 AM CDT, Pharmacy: [facility] [id number] Start Date: 05/21/18 Stop Date: 03/31/24 Status: Completed MS Contin 15 mg oral tablet, extended release 2 tab(s), Oral, q12hr, # 28 tab(s), 0 Refill(s), Start Date: 05/21/18 10:04:00 AM CDT, Pharmacy: [facility] [id number] Start Date: 05/21/18 Stop Date: 09/09/18 Status: Completed MS Contin 30 mg oral tablet, extended release 1 tab(s), Oral, q12hr interval, 0 Refill(s), Start Date: 09/12/18 9:49:00 AM CDT Start Date: 09/12/18 Stop Date: 06/16/19 Status: Completed Multi-Day Plus Minerals oral tablet 1 tab(s), Oral, Daily, # 30 tab(s), 0 Refill(s), Start Date: 09/30/22 3:49:00 PM PHARMACY TECHNICIAN PROGRAM DIRECTOR Start Date: 09/30/22 Stop Date: 06/21/24 Status: Completed Narcan 4 mg/0.1 mL nasal spray 1 spray(s), Nasal, ONETIME, # 2 EA, 11 Refill(s), Start Date: 07/07/24 10:15:00 AM CDT, Pharmacy: [facility] #[id number], 173, cm, 07/07/24 9:24:00 CDT, Height/Length Measured, 88.2, kg, 249:25:00 CDT, Weight Dosing Start Date: 07/07/24 Stop Date: 07/26/24 Status: Discontinued oxycodone-acetaminophen 10 mg-325 mg oral tablet 0 Refill(s), Start Date: 11/18/22 1:27:00 PM PHARMACY TECHNICIAN PROGRAM DIRECTOR Start Date: 11/18/22 Stop Date: 04/09/23 [...] Start Date: 07/07/24 10:05:00 AM CDT, Pharmacy: [facility] #[id number], 173, cm, 07/07/24 9:24:00 CDT, Height/Length Measured, [...] Start Date: 05/17/18 4:24:00 PM CDT, Pharmacy: [facility] [id number] Start Date: 05/17/18 Stop Date: 09/09/18 Status: Completed Percocet 5/325 oral tablet See Instructions, PRN PRN for pain, 1 tab(s) Oral q6hr not to exceed 4000 mg acetaminophen per day,# 60 tab(s), 0 Refill(s), Start Date: 09/14/18 9:23:00 AM CDT, Pharmacy: [facility] Start Date: 09/14/18 Stop Date: 06/16/19 Status: Completed predniSONE 10 mg oral tablet 3 tab(s), Oral, BID, For inflammation and pain, # 84 tab(s), 0 Refill(s), Start Date: 07/26/24 3:47:00 PM CDT, Pharmacy: [facility] #[id number], 173, cm, 07/26/24 15:14:00 CDT, Height/Length Measured, [...] Start Date: 05/21/18 10:05:00 AM CDT, Pharmacy: [facility] [id number] Start Date: 05/21/18 Stop Date: 05/31/18 Status: Completed tamsulosin 0.4 mg oral capsule 1 cap(s), Oral, Daily, # 90 cap(s), 3 Refill(s), Start Date: 12/20/18 1:38:00 PM PHARMACY TECHNICIAN PROGRAM DIRECTOR, Pharmacy: [facility] Start Date: 12/20/18 Stop [...] Start Date: 03/03/23 1:54:00 PM CDT, Pharmacy: [facility], 173, cm, 11/18/22 13:25:00 PHARMACY TECHNICIAN PROGRAM DIRECTOR, Height/Length Measured, 89.5, kg, 03/03/23 12:25:00 CDT, Weight Dosing Start Date: 03/03/23 Stop Date: 03/31/24 Status: Completed vancomycin 1 g intravenous injection IV, q12hr interval, prescribed by Dr Perdue, 0 Refill(s), Start Date: 10/21/18 8:45:00 AM PHARMACY TECHNICIAN PROGRAM DIRECTOR Start Date: 10/21/18 Stop Date: 11/16/18 Status: Completed Zinc 140 mg (as elemental zinc 50 mg) oral tablet 1 tab(s), Oral, Daily, # 90 tab(s), 0 Refill(s), Start Date: 09/30/22 3:48:00 PM PHARMACY TECHNICIAN PROGRAM DIRECTOR Start Date: 09/30/22 Stop Date: 06/21/24 Status: [...] Elbow surgery from elbow to forearm 14left [id number] procedure 16left 17LT Rotator Cuff Repair 18right 19RT Tendon Repair 20right side 21RT Wrist Surgery- Frzn wrist- 2 screws Results Radiology Reports * Exam Date Time Procedure Performing Provider Status 08/07/24 10:39 AM MRI Cervical Spine WO Contrast Elpidio Gray; Javi (Verified) Notes: (MRI Cervical Spine WO Contrast) Reason For Exam: Neck pain with radiculopathy into both shoulders [...] C2-C3. Electronically signed by Will Lazcano M.D.. Final Dictated by: Sharon Morris DT/TM: 08/07/2024 11:07 am Signed by: Will Lazcano MD Signed (Electronic Signature): 08/07/2024 11:18 am Social History Social History Type Response Sex Male Patient Care team information Personnel Name: Carlos Enrique Obando MD Address: Address: [address] [place] [address]
--- OUTSIDE RECORDS SUMMARY | 2024-11-23 00:09 | XMS_ITS | Continuity of Care Document ---
Author Organization [facility] Address [address] [address] Care Team Providers Care Hack Driver Name Role Phone Carlos Enrique Obando Primary Care Physician Encounter Date(s): 06/06/24 - [facility] [address] [place] [address]- Discharge Disposition: Discharged to Home or Self [...] Start Date: 04/22/23 10:25:00 AM CDT, Pharmacy: [facility], 173, cm, 04/09/23 15:48:00 CDT, [...] Start Date: 03/09/23 10:48:00 AM CDT, Pharmacy: [facility], 173, cm, 03/09/23 10:20:00 CDT, Height/Length Measured, 89.5, kg, 03/09/23 10:22:00 CDT, Weight Dosing Start Date: 03/09/23 Stop Date: 08/27/23 Status: Completed amLODIPine 5 mg oral tablet 1 tab(s), Oral, Daily, # 90 tab(s), 3 Refill(s), Start Date: 08/27/23 8:41:00 AM CDT, Pharmacy: [facility], 173, cm, 04/09/23 15:48:00 CDT, Height/Length [...] Start Date: 03/09/23 10:49:00 AM CDT, Pharmacy: [facility], 173, cm, 03/09/23 10:20:00 CDT, Height/Length Measured, 89.5, kg, 03/09/23 10:22:00 CDT,Weight Dosing Start Date: 03/09/23 Stop Date: 04/22/23 Status: Completed baclofen 10 mg oral tablet 1 tab(s), Oral, TID, # 30 tab(s), 1 Refill(s), Start Date: 04/22/23 11:37:00 AM CDT, [facility], cm, 04/09/23 15:48:00 CDT, Height/Length Measured, 87.6, kg, 04/09/23 15:50:00 CDT, Weight Dosing Start Date: 04/22/23 Stop Date: 03/31/24 Status: Completed baclofen 10 mg oral tablet 0 Refill(s), Start Date: 11/18/22 1:27:00 PM UPHOLSTERY SEWER Start Date: 11/18/22 Stop Date: 03/09/23 Status: Discontinued baclofen 10 mg oral tablet 1 tab(s), Oral, TID, PRN PRN for pain, 0 Refill(s), Start Date: 05/15/18 11:15:00 PM CDT Start Date: 05/15/18 Stop Date: 06/16/19 Status: Completed baclofen 10 mg tablet baclofen 10 mg tablet, 1 tab(s), Oral, TID, # 30 tab(s), 2 Refill(s), Pharmacy: [facility], 173, cm, 04/09/23 15:48:00 CDT, Height/Length Measured, 87.6, kg, 04/09/23 15:50:00 CDT, Weight Dosing Start Date: 06/08/23 Stop Date: 03/31/24 Status: Completed baclofen 10 mg tablet baclofen 10 mg tablet, 1 tab(s), Oral, TID, # 30 tab(s), 2 Refill(s), Pharmacy: [facility], 173, cm, 04/09/23 15:48:00 CDT, Height/Length [...] 0 Refill(s), Start Date: 11/09/18 6:34:00 PM UPHOLSTERY SEWER, Pharmacy: [facility] Start Date: 11/09/18 Stop Date: 12/16/18 Status: Completed ciprofloxacin 750 mg oral tablet 1 tab(s), Oral, q12hr, 2h away from dairy, X 14 days, # 28 tab(s), 2 Refill(s), Start Date: :21:00 PM UPHOLSTERY SEWER, Pharmacy: [facility] Start Date: 09/19/18 Stop Date: 11/09/18 [...] 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 daily 3 months 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, # 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, 0 Refill(s), 03/16/19 [...] 3 Refill(s), Start Date: 12/20/18 1:37:00 PM UPHOLSTERY SEWER, Pharmacy: [facility] Start Date: 12/20/18 Stop Date: 09/30/22 Status: Completed finasteride 5 mg oral tablet 1 tab(s), Oral, Daily, # 30 tab(s), 0 Refill(s), Start Date: 03/31/24 10:43:00 AM CDT Start Date: 03/31/24 Status: Ordered fluticasone 50 mcg/inh nasal spray 2 spray(s), Nasal, BID, X 42 days, # 16 gm, 11 Refill(s), Start Date: 04/03/24 11:55:00 AM CDT, Pharmacy: [facility], 173, cm, 03/31/24 10:46:00 CDT, Height/Length [...] Start Date: 04/19/24 10:19:00 AM CDT, Pharmacy: [facility] #[id number], 173, cm, 03/31/24 10:46:00 CDT, Height/Length Measured, 88.2, kg, 03/31/24 10:51:00 CDT, Weight Dosing Start Date: 04/19/24 Stop Date: 09/05/25 Status: Ordered ibuprofen 600 mg oral tablet 1 tab(s), Oral, QID, PRN PRN for pain, with food or milk, # 30 tab(s), 0 Refill(s), Start Date: 03/03/23 1:53:00 PM CDT, Pharmacy: [facility], 173, cm, 11/18/22 13:25:00 UPHOLSTERY SEWER, Height/Length Measured, 89.5, kg, 03/03/23 12:25:00 CDT, [...] Start Date: 03/31/24 11:26:00 AM CDT, Pharmacy: [facility], 173, cm, 03/31/24 10:46:00 CDT, Height/Length Measured, 88.2, kg, 03/31/24 10:51:00 CDT, Weight Dosing Start Date: 03/31/24 Stop Date: 04/11/24 Status: Completed levoFLOXacin 500 mg oral tablet 1 tab(s), Oral, Daily, For chronic recurrent sinusitis, X 10 days, # 10 tab(s), 0 Refill(s), Start Date: 04/11/24 3:29:00 PM CDT, Pharmacy: [facility], 173, cm, 03/31/24 10:46:00 CDT, Height/Length Measured, 88.2, kg, 03/31/24 10:51:00 CDT, Weight Dosing Start Date: 04/11/24 Stop Date: 04/19/24 Status: Completed levoFLOXacin 500 mg oral tablet 1 tab(s), Oral, Daily, For chronic recurrent sinusitis, # 10 tab(s), 0 Refill(s), Start Date: 04/19/24 10:19:00 AM CDT, Pharmacy: [facility] #[id number], 173, cm, 03/31/24 10:46:00 CDT, Height/Length Measured, 88.2, kg, 03/31/24 10:51:00 CDT, Weight Dosing Start Date: 04/19/24 Stop Date: 06/06/24 Status: Completed linezolid 600 mg oral tablet 1 tab(s), Oral, q12hr, generic please, # 28 tab(s), 0 Refill(s), Start Date: 11/16/18 11:41:00 AM UPHOLSTERY SEWER, Pharmacy: [facility] Start Date: 11/16/18 Stop Date: 12/02/18 Status: Completed Medrol 4 mg oral tablet 1 packet(s), Oral, ONETIME, as directed on package labeling, # 21 tab(s), 0 Refill(s), Start Date: 11/18/22 1:39:00 PM UPHOLSTERY SEWER, Pharmacy: [facility], 173, cm, 11/18/22 13:25:00 UPHOLSTERY SEWER, Height/Length Measured, 86.3, kg, 11/18/22 13:27:00 UPHOLSTERY SEWER, Weight Dosing Start Date: 11/18/22 Stop Date: 03/09/23 Status: Completed metFORMIN 500 mg oral tablet 0.5 tab(s), Oral, BID, # 30 tab(s), 11 Refill(s), Start Date: 04/03/24 11:56:00 AM CDT, Pharmacy: [facility], 173, cm, 03/31/24 10:46:00 CDT, Height/Length Measured, 88.2, kg, 03/31/24 10:51:00 CDT, Weight Dosing Start Date: 04/03/24 Stop Date: 04/19/24 Status: Completed metFORMIN 500 mg oral tablet 0.5 tab(s), Oral, BID, # 30 tab(s), 11 Refill(s), Start Date: 04/19/24 10:19:00 AM CDT, Pharmacy: [facility] #[id number], 173, cm, 03/31/24 10:46:00 CDT, Height/Length Measured, 88.2, kg, 03/31/2410:51:00 CDT, Weight Dosing Start Date: 04/19/24 Status: Ordered MiraLax oral powder for reconstitution 17 gm, Oral, Daily, Dissolve in water before taking, # 255 gm, 0 Refill(s), Start Date: 05/21/18 10:05:00 AM CDT, Pharmacy: [facility] [id number] Start Date: 05/21/18 Stop Date: 03/31/24 Status: Completed MS Contin 15 mg oral tablet, extended release 2 tab(s), Oral, q12hr, # 28 tab(s), 0 Refill(s), Start Date: 05/21/18 10:04:00 AM CDT, Pharmacy: [facility] [id number] Start Date: 05/21/18 Stop Date: 09/09/18 Status: Completed MS Contin 30 mg oral tablet, extended release 1 tab(s), Oral, q12hr interval, 0 Refill(s), Start Date: 09/12/18 9:49:00 AM CDT Start Date: 09/12/18 Stop Date: 06/16/19 Status: Completed Multi-Day Plus Minerals oral tablet 1 tab(s), Oral, Daily, # 30 tab(s), 0 Refill(s), Start Date: 09/30/22 3:49:00 PM UPHOLSTERY SEWER Start Date: 09/30/22 Status: Ordered oxycodone-acetaminophen 10 mg-325 mg oral tablet 0 Refill(s), Start Date: 11/18/22 1:27:00 PM UPHOLSTERY SEWER Start Date: 11/18/22 Stop Date: 04/09/23 Status: [...] Start Date: 05/17/18 4:24:00 PM CDT, Pharmacy: [facility] [id number] Start Date: 05/17/18 Stop Date: 09/09/18 Status: Completed Percocet 5/325 oral tablet See Instructions, PRN PRN for pain, 1 tab(s) Oral q6hr not to exceed 4000 mg acetaminophen per day,# 60 tab(s), 0 Refill(s), Start Date: 09/14/18 9:23:00 AM CDT, Pharmacy: [facility] Start Date: 09/14/18 Stop Date: 06/16/19 Status: Completed pregabalin 75 mg oral capsule 1 cap(s), Oral, BID, 0 Refill(s), Start Date: 03/31/24 10:44:00 AM CDT Start Date: 03/31/24 Status: Ordered Senokot S 50 mg-8.6 mg oral tablet 1 tab(s), Oral, BID, X 10 days, # 20 tab(s), 0 Refill(s), Start Date: 05/21/18 10:05:00 AM CDT, Pharmacy: [facility] [id number] Start Date: 05/21/18 Stop Date: 05/31/18 Status: Completed tamsulosin 0.4 mg oral capsule 1 cap(s), Oral, Daily, # 90 cap(s), 3 Refill(s), Start Date: 12/20/18 1:38:00 PM UPHOLSTERY SEWER, Pharmacy: [facility] Start Date: 12/20/18 Stop [...] Start Date: 03/03/23 1:54:00 PM CDT, Pharmacy: [facility], 173, cm, 11/18/22 13:25:00 UPHOLSTERY SEWER, Height/Length Measured, 89.5, kg, 03/03/23 12:25:00 CDT, Weight Dosing Start Date: 03/03/23 Stop Date: 03/31/24 Status: Completed vancomycin 1 g intravenous injection IV, q12hr interval, prescribed by Dr Perdue, 0 Refill(s), Start Date: 10/21/18 8:45:00 AM UPHOLSTERY SEWER Start Date: 10/21/18 Stop Date: 11/16/18 Status: Completed Zinc 140 mg (as elemental zinc 50 mg) oral tablet 1 tab(s), Oral, Daily, # 90 tab(s), 0 Refill(s), Start Date: 09/30/22 3:48:00 PM UPHOLSTERY SEWER Start Date: 09/30/22 Status: Ordered Problem List [...] Elbow surgery from elbow to forearm 13left [id number] procedure 15left 16LT Rotator Cuff Repair 17right 18RT Tendon Repair 19right side 20RT Wrist Surgery- Frzn wrist- 2 screws Social History Social History Type Response Sex Male Patient Care team information Personnel Name: Carlos Enrique Obando MD Address: Address: [address] [place] [address]
--- OUTSIDE RECORDS SUMMARY | 2024-11-23 00:09 | XMS_ITS | Summary of Care ---
Author Organization [facility] Address [address] [place] [address] Care Team Providers Care Tag Meter Operator Name Role Phone Froylan Nash Primary Care Physician Encounter Date(s): 03/03/23 - 03/03/23 [facility] [address] [place] [id number]- Encounter Diagnosis Muscle strain(Discharge Diagnosis) - 03/03/23 Flank pain(Discharge Diagnosis) - 03/03/23 Discharge Disposition: 01 Discharged to Home or Self Care Attending Physician: Renny Colindres DO Admitting Physician: Renny Colindres DO Vital Signs Most recent to oldest [Reference Range]: 1 Temperature Temporal Artery [36.3-37.8 D egC] 36.5 DegC (03/03/23 12:18 PM) Heart Rate Monitored [60-100 bpm] 71 bpm (03/03/23 12:18 PM) Respiratory Rate [14-20 br/min] 16 br/mi n (03/03/23 12:18 PM) SpO2 [95 %] 98 % (03/03/23 12:18 PM) Blood Pressure [90-130/60-90 mmHg] 160/9 4mmHg *HI* (03/03/23 12:18 PM) Height/Length Estimated 180 cm (03/03/23 12:18 PM) Weight Dosing 89.50 kg 1 (03/03/23 12:25 PM) Weight Measured 89.5 kg (03/03/23 12:18 PM) 1Result Comment: This result was because the dosing weight was either not entered or it is >30 days old. This result is based off: Weight Measured March 03, 2023 12:18:00 CDT by Na Yadav RN Problem List Condition Confirmation Course Effective [...] tablet 0 Refill(s), Start Date: 11/18/22 13:27:00 CLEANING MATRON Start Date: 11/18/22 Status: Ordered baclofen 10 [...] tab(s), 0 Refill(s), Start Date: 11/09/18 18:34:00 CLEANING MATRON, Pharmacy: [facility] Start Date: 11/09/18 Stop Date: 12/16/18 Status: Completed ciprofloxacin 750 mg oral tablet 1 tab(s), Oral, q12hr, 2h away from dairy, X 14 days, # 28 tab(s), 2 Refill(s), Start Date: 09/19/18 14:21:00 CLEANING MATRON, Pharmacy: [facility] Start Date: 09/19/18 Stop Date: 11/09/18 [...] 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 daily 3 months 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 Start Date: 11/16/18 Stop Date: 12/02/18 Status: Completed Medrol 4 mg oral tablet 1 packet(s), Oral, ONETIME, as directed on package labeling, # 21 tab(s), 0 Refill(s), Start Date: 11/18/22 13:39:00 CLEANING MATRON, Pharmacy: [facility], 173, cm, 11/18/22 13:25:00 CLEANING MATRON, Height/Length Measured, 86.3, kg, 11/18/22 13:27:00 CLEANING MATRON, Weight Dosing Start Date: 11/18/22 Status: Ordered MiraLax oral powder for reconstitution 17 gm, Oral, Daily, Dissolve in water before taking, # 255 gm, 0 Refill(s), Start Date: 05/21/18 10:05:00 CDT, Pharmacy: [facility] [id number] Start Date: 05/21/18 Status: Ordered MS Contin 15 mg oral tablet, extended release 2 tab(s), Oral, q12hr, # 28 tab(s), 0 Refill(s), Start Date: 05/21/18 10:04:00 CDT, [id number] Start Date: 05/21/18 Stop Date: 09/09/18 Status: Completed MS Contin 30 mg oral tablet, extended release 1 tab(s), Oral, q12hr interval, 0 Refill(s), Start Date: 09/12/18 9:49:00 CDT Start Date: 09/12/18 Stop Date: 06/16/19 Status: Completed Multi-Day Plus Minerals oral tablet 1 tab(s), Oral, Daily, # 30 tab(s), 0 Refill(s), Start Date: 09/30/22 15:49:00 CLEANING MATRON Start Date: 09/30/22 Status: Ordered oxycodone-acetaminophen 10 mg-325 mg oral tablet 0 Refill(s), Start Date: 11/18/22 13:27:00 CLEANING MATRON Start Date: 11/18/22 Status: Ordered oxyCODONE-acetaminophen 10 [...] 0Refill(s), Start Date: 05/17/18 16:24:00 CDT, Pharmacy: [facility] [id number] Start Date: 05/17/18 Stop Date: 09/09/18 Status: Completed Percocet 5/325 oral tablet See Instructions, PRN PRN for pain, 1 tab(s) Oral q6hr not to exceed 4000 mg acetaminophen per day,# 60 tab(s), 0 Refill(s), Start Date: 09/14/18 9:23:00 CDT, Pharmacy: [facility] Start Date: 09/14/18 Stop Date: 06/16/19 Status: Completed Senokot S 50 mg-8.6 mg oral tablet 1 tab(s), Oral, BID, X 10 days, # 20 tab(s), 0 Refill(s), Start Date: 05/21/18 10:05:00 CDT, Pharmacy: [facility] [id number] Start Date: 05/21/18 Stop Date: 05/31/18 Status: Completed tamsulosin 0.4 mg oral capsule 1 cap(s), Oral, Daily, # 90 cap(s), 3 Refill(s), Start Date: 12/20/18 13:38:00 CLEANING MATRON, Pharmacy: [facility] Start Date: 12/20/18 Stop Date: 09/30/22 Status: Completed tamsulosin 0.4 mg oral capsule 1 cap(s), Oral, Daily, 0 Refill(s), Start Date: 09/09/18 7:57:00 CDT Start Date: 09/09/18 Stop Date: 12/20/18 Status: Discontinued traMADol 50 mg oral tablet 1 tab(s), Oral, q4hr interval, PRN PRN as needed for pain, # 12 tab(s), 0 Refill(s), Start Date: 03/03/23 13:54:00 CDT, Pharmacy: [facility], 173, cm, 11/18/22 13:25:00 CLEANING MATRON, Height/Length Measured, 89.5, kg, 03/03/23 12:25:00 CDT, Weight Dosing Start Date: 03/03/23 Status: Ordered vancomycin 1 g intravenous injection IV, q12hr interval, prescribed by Dr Perdue, 0 Refill(s), Start Date: 10/21/18 8:45:00 CLEANING MATRON Start Date: 10/21/18 Stop Date: 11/16/18 Status: Completed Zinc 140 mg (as elemental zinc 50 mg) oral tablet 1 tab(s), Oral, Daily, # 90 tab(s), 0 Refill(s), Start Date: 09/30/22 15:48:00 CLEANING MATRON Start Date: 09/30/22 Status: Ordered Results Most recent to oldest [Reference Range]: 1 WBC [4.8-10.8 thou/mm3] 6.9 thou/mm3 (03/03/23 12:49 PM) RBC [4.60-6.00 Mil/mm3] 4.94 Mil/mm3 (03/03/23 12:49 PM) Neutrophils % Auto [50.0-75.0 %] 52.1 % (03/03/23 12:49 PM) Lymphocytes % Auto [15.0-41.0 %] 34.1 % (03/03/23 12:49 PM) Monocytes % Auto [2.0-10.0 %] 9.4 % (03/03/23 12:49 PM) Eosinophils % Auto [0.0-6.0 %] 3.5 % (03/03/23 12:49 PM) Basophil % Auto [0.0-1.0 %] .6 % (03/03/23 12:49 PM) BUN [7-18 mg/dL] 16 mg/dL (03/03/23 12:49 PM) UA Color [Yellow] Yellow (03/03/23 12:53 PM) Urine WBC [0-5] None Seen (03/03/23:53 PM) A/G Ratio 1 *NA* (03/03/23:49 PM) Albumin Lvl [3.4-5.0 g/dL] 4.2 g/dL (03/03/2349 PM) Alkaline Phosphatase [46-116 unit/L] 78 unit/L (03/03/23:49 PM) ALT [16-63 unit/L] 103 unit/L *HI* (03/03/23 PM) Anion Gap [5.0-15.0 mEq/L] 12.9 mEq/L (03/03/2349 PM) AST [15-37 unit/L] 61 unit/L *HI* (03/03/23 PM) Basophil Absolute [0.0-0.1 thou/mm3] 0.0 thou/mm3 (03/03/23 12:49 PM) CO2 Lvl [21.0-32.0 mmol/L] 29.3 mmol/L (03/03/23:49 PM) Bilirubin Total [0.2-1.0 mg/dL] 0.5 mg/d L (03/03/23:49 PM) Calcium Lvl [8.5-10.1 mg/dL] 9.6 mg/dL (03/03/23:49 PM) Chloride Lvl [98-107 mEq/L] 104 mEq/L (03/03/23:49 PM) Creatinine Lvl [0.70-1.30 mg/dL] 0.94 mg /dL (03/03/23:49 PM) Eosinophil Absolute [0.0-0.7 thou/mm3] 0 .2 thou/mm3 (03/03/23 12:49 PM) Glucose Lvl [74-106 mg/dL] 113 mg/dL *HI* (03/03/2349 PM) Hct [41.0-51.0 %] 46.2 % (03/03/23 PM) Hgb [14.0-17.0 g/dL] 15.7 g/dL (03/03/23 12:49 PM) Immature Granulocyte Auto [0.10-2.00 %] 0.30 % (03/03/23 12:49 PM) Immature Gran Absolute [0.000-0.031 thou /mm3] 0.020 thou/mm3 (03/03/23 12:49 PM) Lymphocytes Absolute [1.50-3.50 thou/mm3 ] 2.36 thou/mm3 (03/03/23 12:49 PM) MCH [25.0-38.0 pg] 31.8 pg (03/03/23:49 PM) MCHC [31.0-37.0 g/dL] 34.0 g/dL (03/03/23:49 PM) MCV [80.0-94.0 fL] 93.5 fL (03/03/2349 PM) Monocytes Absolute [0.0-1.0 thou/mm3] 0. 6 thou/mm3 (03/03/23 12:49 PM) MPV 9.9 *NA* (03/03/23:49 PM) Neutrophils Absolute [1.3-6.0 thou/mm3] 3.6 thou/mm3 (03/03/23 12:49 PM) Platelet [130-400 thou/mm3] 212 thou/mm3 (03/03/23 12:49 PM) Potassium Lvl [3.5-5.1 mEq/L] 4.2 mEq/L (03/03/23:49 PM) RDW [11.6-14.4 %] 12.0 % (03/03/23 12:49 PM) Sodium Lvl [136-145 mEq/L] 142 mEq/L (03/03/23 12:49 PM) Total Protein [6.4-8.2 g/dL] 7.7 g/dL (03/03/23 12:49 PM) Bilirubin [Negative] Negative (03/03/23 12:53 PM) Urine HGB [Negative] Negative (03/03/23 12:53 PM) Urine Clarity [Clear] Clear (03/03/23:53 PM) UA Cult Ind? No *NA* (4/19/23 12:53 PM) Glucose [Negative] Negative (03/03/23 12:53 PM) Ketones [Negative] Negative (03/03/23 12:53 PM) Leuk Esterase [Negative] Negative (03/03/23 12:53 PM) Nitrite Negative *NA* (03/03/23 12:53 PM) Urine pH [5.0-8.0] 7.0 *NA* (03/03/23 12:53 PM) Urine Protein [Negative] Negative (03/03/23 12:53 PM) Urine RBC [None Seen] None Seen (03/03/23 12:53 PM) Specific [place] [1.001-1.030] 1.015 *NA* (03/03/23 12:53 PM) Squamous Epi [None Seen] None Seen (03/03/23 12:53 PM) Urobilinogen [Negative] Negative (03/03/23 12:53 PM) BUN/Creat Ratio [9.0-21.6] 17.0 (03/03/23 12:49 PM) Globulin 4 *NA* (03/03/23 12:49 PM) Heart Rate Monitored [60-100 bpm] 71 bpm (03/03/23 12:18 PM) Weight Measured 89.5 kg (03/03/23 12:18 PM) eGFR CKD-EPI [>=60] 88 (03/03/23 12:49 PM) Respiratory Rate [14-20 br/min] 16 br/mi n (03/03/23 12:18 PM) Immunizations Given and Recorded Vaccine Date Status Refusal Reason influenza virus vaccine, inactivated 09/15/18 Give n Procedures Procedure Date Related Diagnosis Body Site Status ROUTINE VENIPUNCTURE 03/03/23 Comp leted Application Wound Vac (Right , [...]
--- OUTSIDE RECORDS SUMMARY | 2024-11-23 00:09 | XMS_ITS | Continuity of Care Document ---
Author Organization [facility] Address [address] [facility] [address] [place] [address] Care Team Providers Care Service Engineer Name Role Phone Carlos Enrique Obando Primary Care Physician Encounter Date(s): 07/26/24 - 07/26/24 [facility] [address] [place] [address]- Encounter Diagnosis Chronic neck pain(Discharge Diagnosis) - 07/26/24 Chronic low back pain(Discharge Diagnosis) - 07/26/24 Left wrist effusion(Discharge Diagnosis) - 07/26/24 History of TIAs(Discharge Diagnosis) - 07/26/24 Bilateral shoulder pain(Discharge Diagnosis) - 07/26/24 Bilateral leg pain(Discharge Diagnosis) - 07/26/24 Discharge Disposition: 01 Discharged to Home or [...] Start Date: 03/09/23 10:50:00 AM CDT, [facility], [facility], cm, 03/09/23 10:20:00 CDT, Height/Length Measured, 89.5, kg, 03/09/23 10:22:00 CDT, Weight Dosing Start Date: 03/09/23 Stop Date: 04/22/23 Status: Completed amitriptyline 75 mg oral tablet 1 tab(s), Oral, HS, # 90 tab(s), 2 Refill(s), Start Date: 04/22/23 10:25:00 AM CDT, Pharmacy: [facility], 173, cm, 04/09/23 15:48:00 [...] Start Date: 03/09/23 10:48:00 AM CDT, Pharmacy: [facility], 173, cm, 03/09/23 10:20:00 CDT, Height/Length Measured, 89.5, kg, 03/09/23 10:22:00 CDT, Weight Dosing Start Date: 03/09/23 Stop Date: 08/27/23 Status: Completed amLODIPine 5 mg oral tablet 1 tab(s), Oral, Daily, # 90 tab(s), 3 Refill(s), Start Date: 08/27/23 8:41:00 AM CDT, Pharmacy: [facility], 173, cm, 04/09/23 15:48:00 [...] Start Date: 07/26/24 3:47:00 PM CDT, Pharmacy: [facility] #[id number], 173, cm, 07/26/24 15:14:00 CDT, Height/Length Measured, [...] Start Date: 07/07/24 11:58:00 AM CDT, Pharmacy: [facility] #[id number], 173, cm, 07/07/24 9:24:00 CDT, Height/Length Measured, 88.2, kg, 07/07/24 9:25:00 CDT, Weight Dosing Start Date: 07/07/24 Status: Ordered baclofen 10 mg oral tablet 1 tab(s), Oral, TID, # 30 tab(s), 0 Refill(s), Start Date: 03/09/23 10:49:00 AM CDT, Pharmacy: [facility], 173, cm, 03/09/23 10:20:00 CDT, Height/Length Measured, 89.5, kg, 03/09/23 10:22:00 CDT,Weight Dosing Start Date: 03/09/23 Stop Date: 04/22/23 Status: Completed baclofen 10 mg oral tablet 1 tab(s), Oral, TID, # 30 tab(s), 1 Refill(s), Start Date: 04/22/23 11:37:00 AM CDT, Pharmacy: [facility], 173, cm, 04/09/23 15:48:00 CDT, Height/Length Measured, 87.6, kg, 04/09/23 15:50:00 CDT, Weight Dosing Start Date: 04/22/23 Stop Date: 03/31/24 Status: Completed baclofen 10 mg oral tablet 0 Refill(s), Start Date: 11/18/22 1:27:00 PM ROBOTICS TESTING TECHNICIAN Start Date: 11/18/22 Stop Date: 03/09/23 Status: [...] Date: 07/26/24 3:47:00 PM CDT, Pharmacy: [facility] #[id number], 173, cm, 07/26/24 15:14:00 CDT, Height/Length Measured, [...] 0 Refill(s), Start Date: 11/09/18 6:34:00 PM ROBOTICS TESTING TECHNICIAN, Pharmacy: [facility] Start Date: 11/09/18 Stop Date: 12/16/18 Status: Completed ciprofloxacin 750 mg oral tablet 1 tab(s), Oral, q12hr, 2h away from dairy, X 14 days, # 28 tab(s), 2 Refill(s), Start Date: :21:00 PM ROBOTICS TESTING TECHNICIAN, Pharmacy: [facility] Start Date: 09/19/18 Stop Date: 11/09/18 [...] 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 daily 3 months 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, # 1 boxes, 0 Refill(s), 03/16/19 [...] 3 Refill(s), Start Date: 12/20/18 1:37:00 PM ROBOTICS TESTING TECHNICIAN, Pharmacy: [facility] Start Date: 12/20/18 Stop Date: 09/30/22 [...] Start Date: 04/19/24 10:19:00 AM CDT, Pharmacy: [facility] #[id number], 173, cm, 03/31/24 10:46:00 CDT, Height/Length Measured, 88.2, kg, 03/31/24 10:51:00 CDT, Weight Dosing Start Date: 04/19/24 Stop Date: 06/21/24 Status: Completed gabapentin 300 mg oral capsule 1 cap(s), Oral, TID, # 90 cap(s), 11 Refill(s), Start Date: 07/07/24 10:05:00 AM CDT, Pharmacy: [facility] #[id number], 173, cm, 07/07/24 9:24:00 CDT, Height/Length Measured, 88.2, kg, 07/07/24 9:25:00 CDT, Weight Dosing Start Date: 07/07/24 Stop Date: 07/11/24 Status: Discontinued hydrocodone-acetaminophen 5 mg-325 mg oral tablet See Instructions, 1/2 to 1 tab(s) Oral TID, # 60 tab(s), 0 Refill(s), Start Date: 07/11/24 2:53:00 PM CDT, Pharmacy: [facility] #[id number], 173, cm, 07/07/24 9:24:00 CDT, Height/Length Measured,88.2, kg, 07/07/24 9:25:00 CDT, Weight Dosing Start Date: 07/11/24 Stop Date: 07/26/24 Status: Discontinued ibuprofen 600 mg oral tablet 1 tab(s), Oral, QID, PRN PRN for pain, with food or milk, # 30 tab(s), 0 Refill(s), Start Date: 03/03/23 1:53:00 PM CDT, Pharmacy: [facility], 173, cm, 11/18/22 13:25:00 ROBOTICS TESTING TECHNICIAN, Height/Length Measured, 89.5, kg, 03/03/23 12:25:00 CDT, [...] Start Date: 07/07/24 10:05:00 AM CDT, Pharmacy: [facility] #[id number], 173, cm, 07/07/24 9:24:00 CDT, Height/Length Measured, [...] Start Date: 03/31/24 11:26:00 AM CDT, Pharmacy: [facility], 173, cm, 03/31/24 10:46:00 CDT, Height/Length Measured, 88.2, kg, 03/31/24 10:51:00 CDT, Weight Dosing Start Date: 03/31/24 Stop Date: 04/11/24 Status: Completed levoFLOXacin 500 mg oral tablet 1 tab(s), Oral, Daily, For chronic recurrent sinusitis, X 10 days, # 10 tab(s), 0 Refill(s), Start Date: 04/11/24 3:29:00 PM CDT, Pharmacy: [facility], 173, cm, 03/31/24 10:46:00 CDT, Height/Length Measured, 88.2, kg, 03/31/24 10:51:00 CDT, Weight Dosing Start Date: 04/11/24 Stop Date: 04/19/24 Status: Completed levoFLOXacin 500 mg oral tablet 1 tab(s), Oral, Daily, For chronic recurrent sinusitis, # 10 tab(s), 0 Refill(s), Start Date: 04/19/24 10:19:00 AM CDT, Pharmacy: [facility] #[id number], 173, cm, 03/31/24 10:46:00 CDT, Height/Length Measured, 88.2, kg, 03/31/24 10:51:00 CDT, Weight Dosing Start Date: 04/19/24 Stop Date: 06/06/24 Status: Completed linezolid 600 mg oral tablet 1 tab(s), Oral, q12hr, generic please, # 28 tab(s), 0 Refill(s), Start Date: 11/16/18 11:41:00 AM ROBOTICS TESTING TECHNICIAN, Pharmacy: [facility] Start Date: 11/16/18 Stop Date: 12/02/18 Status: Completed Medrol 4 mg oral tablet 1 packet(s), Oral, ONETIME, as directed on package labeling, # 21 tab(s), 0 Refill(s), Start Date: 11/18/22 1:39:00 PM ROBOTICS TESTING TECHNICIAN, Pharmacy: [facility], 173, cm, 11/18/22 13:25:00 ROBOTICS TESTING TECHNICIAN, Height/Length Measured, 86.3, kg, 11/18/22 13:27:00 ROBOTICS TESTING TECHNICIAN, Weight Dosing Start Date: 11/18/22 Stop Date: [...] Start Date: 04/19/24 10:19:00 AM CDT, Pharmacy: [facility] #[id number], 173, cm, 03/31/24 10:46:00 CDT, Height/Length Measured, 88.2, kg, 03/31/2410:51:00 CDT, Weight Dosing Start Date: 04/19/24 Stop Date: 06/21/24 Status: Completed metFORMIN 500 mg oral tablet 1 tab(s), Oral, BID, # 180 tab(s), 3 Refill(s), Start Date: 07/07/24 11:58:00 AM CDT, Pharmacy: [facility] #[id number], 173, cm, 07/07/24 9:24:00 CDT, Height/Length Measured, 88.2, kg, 07/07/24 9:25:00 CDT, Weight Dosing Start Date: 07/07/24 Status: Ordered MiraLax oral powder for reconstitution 17 gm, Oral, Daily, Dissolve in water before taking, # 255 gm, 0 Refill(s), Start Date: 05/21/18 10:05:00 AM CDT, Pharmacy: [facility] [id number] Start Date: 05/21/18 Stop Date: 03/31/24 Status: Completed MS Contin 15 mg oral tablet, extended release 2 tab(s), Oral, q12hr, # 28 tab(s), 0 Refill(s), Start Date: 05/21/18 10:04:00 AM CDT, Pharmacy: [facility] [id number] Start Date: 05/21/18 Stop Date: 09/09/18 Status: Completed MS Contin 30 mg oral tablet, extended release 1 tab(s), Oral, q12hr interval, 0 Refill(s), Start Date: 09/12/18 9:49:00 AM CDT Start Date: 09/12/18 Stop Date: 06/16/19 Status: Completed Multi-Day Plus Minerals oral tablet 1 tab(s), Oral, Daily, # 30 tab(s), 0 Refill(s), Start Date: 09/30/22 3:49:00 PM ROBOTICS TESTING TECHNICIAN Start Date: 09/30/22 Stop Date: 06/21/24 Status: Completed Narcan 4 mg/0.1 mL nasal spray 1 spray(s), Nasal, ONETIME, # 2 EA, 11 Refill(s), Start Date: 07/07/24 10:15:00 AM CDT, Pharmacy: [facility] #[id number], 173, cm, 07/07/24 9:24:00 CDT, Height/Length Measured, 88.2, kg, :25:00 CDT, Weight Dosing Start Date: 07/07/24 Stop Date: 07/26/24 Status: Discontinued oxycodone-acetaminophen 10 mg-325 mg oral tablet 0 Refill(s), Start Date: 11/18/22 1:27:00 PM ROBOTICS TESTING TECHNICIAN Start Date: 11/18/22 Stop Date: 04/09/23 Status: [...] Start Date: 07/07/24 10:05:00 AM CDT, Pharmacy: [facility] #[id number], 173, cm, 07/07/24 9:24:00 CDT, Height/Length Measured, [...] Start Date: 05/17/18 4:24:00 PM CDT, Pharmacy: [facility] [id number] Start Date: 05/17/18 Stop Date: 09/09/18 Status: Completed Percocet 5/325 oral tablet See Instructions, PRN PRN for pain, 1 tab(s) Oral q6hr not to exceed 4000 mg acetaminophen per day,# 60 tab(s), 0 Refill(s), Start Date: 09/14/18 9:23:00 AM CDT, Pharmacy: [facility] Start Date: 09/14/18 Stop Date: 06/16/19 Status: Completed predniSONE 10 mg oral tablet 3 tab(s), Oral, BID, For inflammation and pain, # 84 tab(s), 0 Refill(s), Start Date: 07/26/24 3:47:00 PM CDT, Pharmacy: [facility] #[id number], 173, cm, 07/26/24 15:14:00 CDT, Height/Length Measured, [...] Start Date: 05/21/18 10:05:00 AM CDT, Pharmacy: [facility] [id number] Start Date: 05/21/18 Stop Date: 05/31/18 Status: Completed tamsulosin 0.4 mg oral capsule 1 cap(s), Oral, Daily, # 90 cap(s), 3 Refill(s), Start Date: 12/20/18 1:38:00 PM ROBOTICS TESTING TECHNICIAN, Pharmacy: [facility] Start Date: 12/20/18 Stop Date: 09/30/22 Status: Completed tamsulosin 0.4 mg oral capsule 1 cap(s), Oral, Daily, 0 Refill(s), Start Date: 09/09/18 7:57:00 AM CDT Start Date: 09/09/18 Stop Date: 12/20/18 Status: Discontinued traMADol 50 mg oral tablet 1 tab(s), Oral, q4hr interval, PRN PRN as needed for pain, # 12 tab(s), 0 Refill(s), Start Date: 03/03/23 1:54:00 PM CDT, Pharmacy: [facility], 173, cm, 11/18/22 13:25:00 ROBOTICS TESTING TECHNICIAN, Height/Length Measured, 89.5, kg, 03/03/23 12:25:00 CDT, Weight Dosing Start Date: 03/03/23 Stop Date: 03/31/24 Status: Completed vancomycin 1 g intravenous injection IV, q12hr interval, prescribed by Dr Perdue, 0 Refill(s), Start Date: 10/21/18 8:45:00 AM ROBOTICS TESTING TECHNICIAN Start Date: 10/21/18 Stop Date: 11/16/18 Status: Completed Zinc 140 mg (as elemental zinc 50 mg) oral tablet 1 tab(s), Oral, Daily, # 90 tab(s), 0 Refill(s), Start Date: 09/30/22 3:48:00 PM ROBOTICS TESTING TECHNICIAN Start Date: 09/30/22 Stop Date: 06/21/24 Status: [...] Elbow surgery from elbow to forearm 14left [id number] procedure 16left 17LT Rotator Cuff Repair 18right 19RT Tendon Repair 20right side 21RT Wrist Surgery- Frzn wrist- 2 screws Results Most recent to oldest [Reference Range]: 1 Weight Measured 88.0 kg (07/26/24 3:14 PM) Height/Length Measured 173 cm (07/26/24 3:14 PM) Body Mass Index Measured 29.4 kg/m2 (07/26/24 3:14 PM) Systolic Blood Pressure [90-120 mmHg] 11 4 mmHg (07/26/24 3:14 PM) Diastolic Blood Pressure [60-80 mmHg] 68 mmHg (07/26/24 3:14 PM) Respiratory Rate [14-20 br/min] 17 br/mi n (07/26/24 3:14 PM) Vital Signs Most recent to oldest [Reference Range]: 1 Peripheral Pulse Rate [60-100 bpm] 78 bp m (07/26/24 3:14 PM) Respiratory Rate [14-20 br/min] 17 br/mi n (07/26/24 3:14 PM) Blood Pressure [90-120/60-80 mmHg] 114/6 8mmHg (07/26/24 3:14 PM) SpO2 [95 %] 97 % (07/26/24 3:14 PM) Mean Arterial Pressure, Cuff [70-110 mmH g] 83 mmHg (07/26/24 3:14 PM) Height/Length Measured 173 cm (07/26/24 3:14 PM) Weight Dosing 88.00 kg 1 (07/26/24 3:24 PM) Weight Measured 88.0 kg (07/26/24 3:14 PM) BSA Measured 2.02 m2 (07/26/24 3:14 PM) Body Mass Index Measured 29.4 kg/m2 (07/26/24 3:14 PM) 1Result Comment: This result was because the dosing weight was either not entered or it is >30 days old. This result is based off: Weight Measured July 26, 2024 15:14:00 CDT by Nataly Craft LPN Social History Social History Type Response Sex Male Patient Care team information Personnel Name: Carlos Enrique Obando MD Address: Address: [address]
--- OUTSIDE RECORDS SUMMARY | 2024-11-23 00:09 | XMS_ITS | Continuity of Care Document ---
Author Organization [facility] Address [address] [facility] [address] [place] [address] Care Team Providers Care Contact Center Rep Name Role Phone Carlos Enrique Obando Primary Care Physician Encounter Date(s): 08/25/24 - 08/25/[address] [facility] [address] [place] [address]- Discharge Disposition: 01 Discharged to Home or [...] Start Date: 04/22/23 10:25:00 AM CDT, Pharmacy: [facility], 173, cm, 04/09/23 15:48:00 CDT, Height/Length [...] Start Date: 03/09/23 10:48:00 AM CDT, Pharmacy: [facility], 173, cm, 03/09/23 10:20:00 CDT, Height/Length Measured, 89.5, kg, 03/09/23 10:22:00 CDT, Weight Dosing Start Date: 03/09/23 Stop Date: 08/27/23 Status: Completed amLODIPine 5 mg oral tablet 1 tab(s), Oral, Daily, # 90 tab(s), 3 Refill(s), Start Date: 08/27/23 8:41:00 AM CDT, Pharmacy: [facility], 173, cm, 04/09/23 15:48:00 CDT, Height/Length [...] Start Date: 07/26/24 3:47:00 PM CDT, Pharmacy: [facility] #[id number], 173, cm, 07/26/24 15:14:00 CDT, Height/Length Measured, [...] Start Date: 07/07/24 11:58:00 AM CDT, Pharmacy: [facility] #[id number], 173, cm, 07/07/24 9:24:00 CDT, Height/Length Measured, 88.2, kg, 07/07/24 9:25:00 CDT, Weight Dosing Start Date: 07/07/24 Status: Ordered baclofen 10 mg oral tablet 1 tab(s), Oral, TID, # 30 tab(s), 0 Refill(s), Start Date: 03/09/23 10:49:00 AM CDT, Pharmacy: [facility], 173, cm, 03/09/23 10:20:00 CDT, Height/Length Measured, 89.5, kg, 03/09/23 10:22:00 CDT,Weight Dosing Start Date: 03/09/23 Stop Date: 04/22/23 Status: Completed baclofen 10 mg oral tablet 1 tab(s), Oral, TID, # 30 tab(s), 1 Refill(s), Start Date: 04/22/23 11:37:00 AM CDT, Pharmacy: [facility], 173, cm, 04/09/23 15:48:00 CDT, Height/Length Measured, 87.6, kg, 04/09/23 15:50:00 CDT, Weight Dosing Start Date: 04/22/23 Stop Date: 03/31/24 Status: Completed baclofen 10 mg oral tablet 0 Refill(s), Start Date: 11/18/22 1:27:00 PM .NET ARCHITECT Start Date: 11/18/22 Stop Date: 03/09/23 Status: Discontinued baclofen 10 mg oral tablet 1 tab(s), Oral, TID, PRN PRN for pain, 0 Refill(s), Start Date: 05/15/18 11:15:00 PM CDT Start Date: 05/15/18 Stop Date: 06/16/19 Status: Completed baclofen 10 mg tablet baclofen 10 mg tablet, 1 tab(s), Oral, TID, # 30 tab(s), 2 Refill(s), Pharmacy: [facility], 173, cm, 04/09/23 15:48:00 CDT, Height/Length Measured, 87.6, kg, 04/09/23 15:50:00 CDT, Weight Dosing Start Date: 06/08/23 Stop Date: 03/31/24 Status: Completed baclofen 10 mg tablet baclofen 10 mg tablet, 1 tab(s), Oral, TID, # 30 tab(s), 2 Refill(s), Pharmacy: [facility], 173, cm, 04/09/23 15:48:00 CDT, Height/Length Measured, 87.6, kg, 04/09/23 15:50:00 CDT, Weight Dosing Start Date: 06/18/23 Stop Date: 03/31/24 Status: Completed carisoprodol 250 mg oral tablet 1 tab(s), Oral, BID, # 60 tab(s), 5 Refill(s), Start Date: 07/26/24 3:47:00 PM CDT, Pharmacy: [facility] #[id number], 173, cm, 07/26/24 15:14:00 CDT, Height/Length Measured, [...] 0 Refill(s), Start Date: 11/09/18 6:34:00 PM .NET ARCHITECT, Pharmacy: [facility] Start Date: 11/09/18 Stop Date: 12/16/18 Status: Completed ciprofloxacin 750 mg oral tablet 1 tab(s), Oral, q12hr, 2h away from dairy, X 14 days, # 28 tab(s), 2 Refill(s), Start Date: :21:00 PM .NET ARCHITECT, Pharmacy: [facility] Start Date: 09/19/18 Stop Date: 11/09/18 [...] moderate daily 3 months 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, # 1 boxes, 0 Refill(s), 03/16/19 6:45:00 [...] 3 Refill(s), Start Date: 12/20/18 1:37:00 PM .NET ARCHITECT, Pharmacy: [facility] Start Date: [...] Start Date: 04/03/24 11:55:00 AM CDT, Pharmacy: [facility], 173, cm, 03/31/24 10:46:00 CDT, [...] Start Date: 04/19/24 10:19:00 AM CDT, Pharmacy: [facility] #[id number], 173, cm, 03/31/24 10:46:00 CDT, Height/Length Measured, 88.2, kg, 03/31/24 10:51:00 CDT, Weight Dosing Start Date: 04/19/24 Stop Date: 06/21/24 Status: Completed gabapentin 300 mg oral capsule 1 cap(s), Oral, TID, # 90 cap(s), 11 Refill(s), Start Date: 07/07/24 10:05:00 AM CDT, Pharmacy: [facility] #[id number], 173, cm, 07/07/24 9:24:00 CDT, Height/Length Measured, 88.2, kg, 07/07/24 9:25:00 CDT, Weight Dosing Start Date: 07/07/24 Stop Date: 07/11/24 Status: Discontinued hydrocodone-acetaminophen 5 mg-325 mg oral tablet See Instructions, 1/2 to 1 tab(s) Oral TID, # 60 tab(s), 0 Refill(s), Start Date: 07/11/24 2:53:00 PM CDT, Pharmacy: [facility] #[id number], 173, cm, 07/07/24 9:24:00 CDT, Height/Length Measured,88.2, kg, 07/07/24 9:25:00 CDT, Weight Dosing Start Date: 07/11/24 Stop Date: 07/26/24 Status: Discontinued ibuprofen 600 mg oral tablet 1 tab(s), Oral, QID, PRN PRN for pain, with food or milk, # 30 tab(s), 0 Refill(s), Start Date: 03/03/23 1:53:00 PM CDT, Pharmacy: [facility], 173, cm, 11/18/22 13:25:00 .NET ARCHITECT, Height/Length Measured, 89.5, kg, 03/03/23 12:25:00 CDT, [...] Start Date: 07/07/24 10:05:00 AM CDT, Pharmacy: [facility] #[id number], 173, cm, 07/07/24 9:24:00 CDT, Height/Length Measured, [...] Start Date: 03/31/24 11:26:00 AM CDT, Pharmacy: [facility], 173, cm, 03/31/24 10:46:00 CDT, Height/Length Measured, 88.2, kg, 03/31/24 10:51:00 CDT, Weight Dosing Start Date: 03/31/24 Stop Date: 04/11/24 Status: Completed levoFLOXacin 500 mg oral tablet 1 tab(s), Oral, Daily, For chronic recurrent sinusitis, X 10 days, # 10 tab(s), 0 Refill(s), Start Date: 04/11/24 3:29:00 PM CDT, Pharmacy: [facility], 173, cm, 03/31/24 10:46:00 CDT, Height/Length Measured, 88.2, kg, 03/31/24 10:51:00 CDT, Weight Dosing Start Date: 04/11/24 Stop Date: 04/19/24 Status: Completed levoFLOXacin 500 mg oral tablet 1 tab(s), Oral, Daily, For chronic recurrent sinusitis, # 10 tab(s), 0 Refill(s), Start Date: 04/19/24 10:19:00 AM CDT, Pharmacy: [facility] #[id number], 173, cm, 03/31/24 10:46:00 CDT, Height/Length Measured, 88.2, kg, 03/31/24 10:51:00 CDT, Weight Dosing Start Date: 04/19/24 Stop Date: 06/06/24 Status: Completed linezolid 600 mg oral tablet 1 tab(s), Oral, q12hr, generic please, # 28 tab(s), 0 Refill(s), Start Date: 11/16/18 11:41:00 AM .NET ARCHITECT, Pharmacy: [facility] Start Date: 11/16/18 Stop Date: 12/02/18 Status: Completed Medrol 4 mg oral tablet 1 packet(s), Oral, ONETIME, as directed on package labeling, # 21 tab(s), 0 Refill(s), Start Date: 11/18/22 1:39:00 PM .NET ARCHITECT, Pharmacy: [facility], 173, cm, 11/18/22 13:25:00 .NET ARCHITECT, Height/Length Measured, 86.3, kg, 11/18/22 13:27:00 .NET ARCHITECT, Weight Dosing Start Date: 11/18/22 Stop Date: 03/09/23 Status: Completed metFORMIN 500 mg oral tablet 0.5 tab(s), Oral, BID, # 30 tab(s), 11 Refill(s), Start Date: 04/03/24 11:56:00 AM CDT, Pharmacy: [facility], 173, cm, 03/31/24 10:46:00 CDT, Height/Length Measured, 88.2, kg, 03/31/24 10:51:00 CDT, Weight Dosing Start Date: 04/03/24 Stop Date: 04/19/24 Status: Completed metFORMIN 500 mg oral tablet 0.5 tab(s), Oral, BID, # 30 tab(s), 11 Refill(s), Start Date: 04/19/24 10:19:00 AM CDT, Pharmacy: [facility] #[id number], 173, cm, 03/31/24 10:46:00 CDT, Height/Length Measured, 88.2, kg, 03/31/2410:51:00 CDT, Weight Dosing Start Date: 04/19/24 Stop Date: 06/21/24 Status: Completed metFORMIN 500 mg oral tablet 1 tab(s), Oral, BID, # 180 tab(s), 3 Refill(s), Start Date: 07/07/24 11:58:00 AM CDT, Pharmacy: [facility] #[id number], 173, cm, 07/07/24 9:24:00 CDT, Height/Length Measured, 88.2, kg, 07/07/24 9:25:00 CDT, Weight Dosing Start Date: 07/07/24 Status: Ordered MiraLax oral powder for reconstitution 17 gm, Oral, Daily, Dissolve in water before taking, # 255 gm, 0 Refill(s), Start Date: 05/21/18 10:05:00 AM CDT, Pharmacy: [id number] Start Date: 05/21/18 Stop Date: 03/31/24 Status: Completed MS Contin 15 mg oral tablet, extended release 2 tab(s), Oral, q12hr, # 28 tab(s), 0 Refill(s), Start Date: 05/21/18 10:04:00 AM CDT, Pharmacy: [id number] Start Date: 05/21/18 Stop Date: 09/09/18 Status: Completed MS Contin 30 mg oral tablet, extended release 1 tab(s), Oral, q12hr interval, 0 Refill(s), Start Date: 09/12/18 9:49:00 AM CDT Start Date: 09/12/18 Stop Date: 06/16/19 Status: Completed Multi-Day Plus Minerals oral tablet 1 tab(s), Oral, Daily, # 30 tab(s), 0 Refill(s), Start Date: 09/30/22 3:49:00 PM .NET ARCHITECT Start Date: 09/30/22 Stop Date: 06/21/24 Status: Completed Narcan 4 mg/0.1 mL nasal spray 1 spray(s), Nasal, ONETIME, # 2 EA, 11 Refill(s), Start Date: 07/07/24 10:15:00 AM CDT, Pharmacy: [facility] #[id number], 173, cm, 07/07/24 9:24:00 CDT, Height/Length Measured, 88.2, kg, :25:00 CDT, Weight Dosing Start Date: 07/07/24 Stop Date: 07/26/24 Status: Discontinued Narcan 4 mg/0.1 mL nasal spray 1 spray(s), Nasal, ONETIME, # 2 EA, 0 Refill(s), Start Date: 08/25/24 3:51:00 PM CDT, Pharmacy: [id number], 173, cm, 07/26/24 15:14:00 CDT, Height/Length Measured, 88, kg, 08/17/24 7:54:00 CDT, Weight Dosing Start Date: 08/25/24 Status: Ordered oxycodone-acetaminophen 10 mg-325 mg oral tablet 0 Refill(s), Start Date: 11/18/22 1:27:00 PM .NET ARCHITECT Start Date: 11/18/22 Stop Date: 04/09/23 Status: [...] Start Date: 07/07/24 10:05:00 AM CDT, Pharmacy: [facility] #[id number], 173, cm, 07/07/24 9:24:00 CDT, Height/Length Measured, 88.2, kg, 07/07/24 9:25:00 CDT, Weight Dosing Start Date: 07/07/24 Stop Date: 07/11/24 Status: Discontinued oxycodone-acetaminophen 5 mg-325 mg oral tablet 1 tab(s), Oral, TID, PRN PRN pain severe 8-10, # 90 tab(s), 0 Refill(s), Start Date: 08/25/24 10:49:00 AM CDT, Pharmacy: [facility], 173, cm, 07/26/24 [...] Start Date: 05/17/18 4:24:00 PM CDT, Pharmacy: [facility] [id number] Start Date: 05/17/18 Stop Date: 09/09/18 Status: Completed Percocet 5/325 oral tablet See Instructions, PRN PRN for pain, 1 tab(s) Oral q6hr not to exceed 4000 mg acetaminophen per day,# 60 tab(s), 0 Refill(s), Start Date: 09/14/18 9:23:00 AM CDT, Pharmacy: [facility] Start Date: 09/14/18 Stop Date: 06/16/19 Status: Completed predniSONE 10 mg oral tablet 3 tab(s), Oral, BID, For inflammation and pain, # 84 tab(s), 0 Refill(s), Start Date: 08/10/24 9:14:00 AM CDT, Pharmacy: [facility], 173, cm, 07/26/24 15:14:00 CDT, Height/Length Measured, 88, kg, 07/26/24 15:24:00 CDT, Weight Dosing Start Date: 08/10/24 Stop Date: 08/25/24 Status: Discontinued predniSONE 10 mg oral tablet 3 tab(s), Oral, BID, For inflammation and pain, # 84 tab(s), 0 Refill(s), Start Date: 07/26/24 3:47:00 PM CDT, Pharmacy: [facility] #[id number], 173, cm, 07/26/24 15:14:00 CDT, Height/Length Measured, [...] Start Date: 05/21/18 10:05:00 AM CDT, Pharmacy: [id number] Start Date: 05/21/18 Stop Date: 05/31/18 Status: Completed tamsulosin 0.4 mg oral capsule 1 cap(s), Oral, Daily, # 90 cap(s), 3 Refill(s), Start Date: 12/20/18 1:38:00 PM .NET ARCHITECT, Pharmacy: [facility] Start Date: [...] Start Date: 03/03/23 1:54:00 PM CDT, Pharmacy: [facility], 173, cm, 11/18/22 13:25:00 .NET ARCHITECT, Height/Length Measured, 89.5, kg, 03/03/23 12:25:00 CDT, Weight Dosing Start Date: 03/03/23 Stop Date: 03/31/24 Status: Completed vancomycin 1 g intravenous injection IV, q12hr interval, prescribed by Dr Perdue, 0 Refill(s), Start Date: 10/21/18 8:45:00 AM .NET ARCHITECT Start Date: 10/21/18 Stop Date: 11/16/18 Status: Completed Zinc 140 mg (as elemental zinc 50 mg) oral tablet 1 tab(s), Oral, Daily, # 90 tab(s), 0 Refill(s), Start Date: 09/30/22 3:48:00 PM .NET ARCHITECT Start Date: 09/30/22 Stop Date: 06/21/24 Status: [...] Elbow surgery from elbow to forearm 14left [id number] procedure 16left 17LT Rotator Cuff Repair 18right 19RT Tendon Repair 20right side 21RT Wrist Surgery- Frzn wrist- 2 screws Social History Social History Type Response Sex Male Patient Care team information Personnel Name: Carlos Enrique Obando MD Address: Address: [address] [place] [address]
--- OUTSIDE RECORDS SUMMARY | 2024-11-23 00:09 | XMS_ITS | Summary of Care ---
Author Organization [facility] Address [address] [facility] [address] [place] [address] Care Team Providers Care [place] [employer] Director Name Role Phone Lucretia Carvalho Primary Care Physician Encounter Date(s): 03/09/24 - 03/09/24 Family Medicine [facility] [address] [place] [address]- [place] Discharge Disposition: Discharged to [...] Start Date: 04/22/23 10:25:00 AM CDT, Pharmacy: [facility], 173, cm, 04/09/23 15:48:00 CDT, [...] Start Date: 03/09/23 10:48:00 AM CDT, Pharmacy: [facility], 173, cm, 03/09/23 10:20:00 CDT, Height/Length Measured, 89.5, kg, 03/09/23 10:22:00 CDT, Weight Dosing Start Date: 03/09/23 Stop Date: 08/27/23 Status: Completed amLODIPine 5 mg oral tablet 1 tab(s), Oral, Daily, # 90 tab(s), 3 Refill(s), Start Date: 08/27/23 8:41:00 AM CDT, Pharmacy: [facility], 173, cm, 04/09/23 15:48:00 CDT, [...] Start Date: 03/09/23 10:49:00 AM CDT, Pharmacy: [facility], 173, cm, 03/09/23 10:20:00 CDT, Height/Length Measured, 89.5, kg, 03/09/23 10:22:00 CDT,Weight Dosing Start Date: 03/09/23 Stop Date: 04/22/23 Status: Completed baclofen 10 mg oral tablet 1 tab(s), Oral, TID, # 30 tab(s), 1 Refill(s), Start Date: 04/22/23 11:37:00 AM CDT, Pharmacy: [facility], 173, cm, 04/09/23 15:48:00 CDT, Height/Length Measured, 87.6, kg, 04/09/23 15:50:00 CDT, Weight Dosing Start Date: 04/22/23 Status: Ordered baclofen 10 mg oral tablet 0 Refill(s), Start Date: 11/18/22 1:27:00 PM 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 DRUM 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 Start Date: 11/18/22 Stop Date: 03/09/23 Status: Discontinued baclofen 10 mg oral tablet 1 tab(s), Oral, TID, PRN PRN for pain, 0 Refill(s), Start Date: 05/15/18 11:15:00 PM CDT Start Date: 05/15/18 Stop Date: 06/16/19 Status: Completed baclofen 10 mg tablet baclofen 10 mg tablet, 1 tab(s), Oral, TID, # 30 tab(s), 2 Refill(s), Pharmacy: [facility], 173, cm, 04/09/23 15:48:00 CDT, Height/Length Measured, 87.6, kg, 04/09/23 15:50:00 CDT, Weight Dosing Start Date: 06/08/23 Status: Ordered baclofen 10 mg tablet baclofen 10 mg tablet, 1 tab(s), Oral, TID, # 30 tab(s), 2 Refill(s), Pharmacy: [facility], 173, cm, 04/09/23 15:48:00 CDT, [...] 0 Refill(s), Start Date: 11/09/18 6:34:00 PM BUCKLE STRAP DRUM OPERATOR, Pharmacy: [facility] Start Date: 11/09/18 Stop Date: 12/16/18 Status: Completed ciprofloxacin 750 mg oral tablet 1 tab(s), Oral, q12hr, 2h away from dairy, X 14 days, # 28 tab(s), 2 Refill(s), Start Date: 182:21:00 PM BUCKLE STRAP DRUM OPERATOR, Pharmacy: [facility] Start Date: 09/19/18 Stop Date: 11/09/18 [...] 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 daily 3 months 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, # 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, 0 Refill(s), 03/16/19 [...] 3 Refill(s), Start Date: 12/20/18 1:37:00 PM BUCKLE STRAP DRUM OPERATOR, Pharmacy: [facility] Start Date: 12/20/18 Stop Date: 09/30/22 Status: Completed ibuprofen 600 mg oral tablet 1 tab(s), Oral, QID, PRN PRN for pain, with food or milk, # 30 tab(s), 0 Refill(s), Start Date: 03/03/23 1:53:00 PM CDT, Pharmacy: [facility], 173, cm, 11/18/22 13:25:00 BUCKLE STRAP DRUM OPERATOR, Height/Length Measured, 89.5, kg, 03/03/23 12:25:00 [...] 0 Refill(s), Start Date: 11/16/18 11:41:00 AM BUCKLE STRAP DRUM OPERATOR, Pharmacy: [facility] Start Date: 11/16/18 Stop Date: 12/02/18 Status: Completed Medrol 4 mg oral tablet 1 packet(s), Oral, ONETIME, as directed on package labeling, # 21 tab(s), 0 Refill(s), Start Date: 11/18/22 1:39:00 PM BUCKLE STRAP DRUM OPERATOR, Pharmacy: [facility], 173, cm, 11/18/22 13:25:00 BUCKLE STRAP DRUM OPERATOR, Height/Length Measured, 86.3, kg, 11/18/22 13:27:00 BUCKLE STRAP DRUM OPERATOR, Weight Dosing Start Date: 11/18/22 Stop Date: 03/09/23 Status: Completed MiraLax oral powder for reconstitution 17 gm, Oral, Daily, Dissolve in water before taking, # 255 gm, 0 Refill(s), Start Date: 05/21/18 10:05:00 AM CDT, Pharmacy: [facility] [id number] Start Date: 05/21/18 Status: Ordered MS Contin 15 mg oral tablet, extended release 2 tab(s), Oral, q12hr, # 28 tab(s), 0 Refill(s), Start Date: 05/21/18 10:04:00 AM CDT, Pharmacy: [facility] [id number] Start Date: 05/21/18 Stop Date: 09/09/18 Status: Completed MS Contin 30 mg oral tablet, extended release 1 tab(s), Oral, q12hr interval, 0 Refill(s), Start Date: 09/12/18 9:49:00 AM CDT Start Date: 09/12/18 Stop Date: 06/16/19 Status: Completed Multi-Day Plus Minerals oral tablet 1 tab(s), Oral, Daily, # 30 tab(s), 0 Refill(s), Start Date: 09/30/22 3:49:00 PM BUCKLE STRAP DRUM OPERATOR Start Date: 09/30/22 Status: Ordered oxycodone-acetaminophen 10 mg-325 mg oral tablet 0 Refill(s), Start Date: 11/18/22 1:27:00 PM BUCKLE [employer]AP DRUM OPERATOR Start Date: 11/18/22 Stop Date: 04/09/23 [...] Start Date: 05/17/18 4:24:00 PM CDT, Pharmacy: [facility] [id number] Start Date: 05/17/18 Stop Date: 09/09/18 Status: Completed Percocet 5/325 oral tablet See Instructions, PRN PRN for pain, 1 tab(s) Oral q6hr not to exceed 4000 mg acetaminophen per day,# 60 tab(s), 0 Refill(s), Start Date: 09/14/18 9:23:00 AM CDT, Pharmacy: [facility] Start Date: 09/14/18 Stop Date: 06/16/19 Status: Completed Senokot S 50 mg-8.6 mg oral tablet 1 tab(s), Oral, BID, X 10 days, # 20 tab(s), 0 Refill(s), Start Date: 05/21/18 10:05:00 AM CDT, [facility] [id number] Start Date: 05/21/18 Stop Date: 05/31/18 Status: Completed tamsulosin 0.4 mg oral capsule 1 cap(s), Oral, Daily, # 90 cap(s), 3 Refill(s), Start Date: 12/20/18 1:38:00 PM BUCKLE STRAP DRUM OPERATOR, Pharmacy: [facility] [...] Start Date: 03/03/23 1:54:00 PM CDT, Pharmacy: [facility], 173, cm, 11/18/22 13:25:00 BUCKLE STRAP DRUM OPERATOR, Height/Length Measured, 89.5, kg, 03/03/23 12:25:00 CDT, Weight Dosing Start Date: 03/03/23 Status: Ordered vancomycin 1 g intravenous injection IV, q12hr interval, prescribed by Dr Perdue, 0 Refill(s), Start Date: 10/21/18 8:45:00 AM BUCKLE [employer]AP DRUM OPERATOR Start Date: 10/21/18 Stop Date: 11/16/18 Status: Completed Zinc 140 mg (as elemental zinc 50 mg) oral tablet 1 tab(s), Oral, Daily, # 90 tab(s), 0 Refill(s), Start Date: 09/30/22 3:48:00 PM BUCKLE STRAP DRUM OPERATOR Start Date: 09/30/22 Status: Ordered Immunizations [...]
--- OUTSIDE RECORDS SUMMARY | 2024-11-23 00:09 | XMS_ITS | Continuity of Care Document ---
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 Role Phone Carlos Enrique Obando Primary Care Physician Encounter Date(s): 09/12/24 - 09/12/24 Family Medicine [facility] [address] [place] [address]- Discharge Disposition: 01 Discharged to Home or [...] Start Date: 04/22/23 10:25:00 AM CDT, Pharmacy: [facility], 173, cm, 04/09/23 15:48:00 CDT, Height/Length [...] Start Date: 03/09/23 10:48:00 AM CDT, Pharmacy: [facility], 173, cm, 03/09/23 10:20:00 CDT, Height/Length Measured, 89.5, kg, 03/09/23 10:22:00 CDT, Weight Dosing Start Date: 03/09/23 Stop Date: 08/27/23 Status: Completed amLODIPine 5 mg oral tablet 1 tab(s), Oral, Daily, # 90 tab(s), 3 Refill(s), Start Date: 08/27/23 8:41:00 AM CDT, Pharmacy: [facility], 173, cm, 04/09/23 15:48:00 CDT, Height/Length Measured, [...] Start Date: 07/26/24 3:47:00 PM CDT, Pharmacy: [facility] #[id number], 173, cm, 07/26/24 15:14:00 CDT, Height/Length Measured, [...] Start Date: 07/07/24 11:58:00 AM CDT, Pharmacy: [facility] #[id number], 173, cm, 07/07/24 9:24:00 CDT, Height/Length Measured, 88.2, kg, 07/07/24 9:25:00 CDT, Weight Dosing Start Date: 07/07/24 Status: Ordered baclofen 10 mg oral tablet 1 tab(s), Oral, TID, # 30 tab(s), 0 Refill(s), Start Date: 03/09/23 10:49:00 AM CDT, Pharmacy: [facility], 173, cm, 03/09/23 10:20:00 CDT, Height/Length Measured, 89.5, kg, 03/09/23 10:22:00 CDT,Weight Dosing Start Date: 03/09/23 Stop Date: 04/22/23 Status: Completed baclofen 10 mg oral tablet 1 tab(s), Oral, TID, # 30 tab(s), 1 Refill(s), Start Date: 04/22/23 11:37:00 AM CDT, Pharmacy: [facility], 173, cm, 04/09/23 15:48:00 CDT, Height/Length Measured, 87.6, kg, 04/09/23 15:50:00 CDT, Weight Dosing Start Date: 04/22/23 Stop Date: 03/31/24 Status: Completed baclofen 10 mg oral tablet 0 Refill(s), Start Date: 11/18/22 1:27:00 PM MAC ARTIST Start Date: 11/18/22 Stop Date: 03/09/23 Status: Discontinued baclofen 10 mg oral tablet 1 tab(s), Oral, TID, PRN PRN for pain, 0 Refill(s), Start Date: 05/15/18 11:15:00 PM CDT Start Date: 05/15/18 Stop Date: 06/16/19 Status: Completed baclofen 10 mg tablet baclofen 10 mg tablet, 1 tab(s), Oral, TID, # 30 tab(s), 2 Refill(s), Pharmacy: [facility], 173, cm, 04/09/23 15:48:00 CDT, Height/Length Measured, 87.6, kg, 04/09/23 15:50:00 CDT, Weight Dosing Start Date: 06/08/23 Stop Date: 03/31/24 Status: Completed baclofen 10 mg tablet baclofen 10 mg tablet, 1 tab(s), Oral, TID, # 30 tab(s), 2 Refill(s), Pharmacy: [facility], 173, cm, 04/09/23 15:48:00 CDT, Height/Length Measured, 87.6, kg, 04/09/23 15:50:00 CDT, Weight Dosing Start Date: 06/18/23 Stop Date: 03/31/24 Status: Completed carisoprodol 250 mg oral tablet 1 tab(s), Oral, BID, # 60 tab(s), 5 Refill(s), Start Date: 07/26/24 3:47:00 PM CDT, Pharmacy: [facility] #[id number], 173, cm, 07/26/24 15:14:00 CDT, Height/Length Measured, [...] 0 Refill(s), Start Date: 11/09/18 6:34:00 PM MAC ARTIST, Pharmacy: [facility] Start Date: 11/09/18 Stop Date: 12/16/18 Status: Completed ciprofloxacin 750 mg oral tablet 1 tab(s), Oral, q12hr, 2h away from dairy, X 14 days, # 28 tab(s), 2 Refill(s), Start Date: :21:00 PM MAC ARTIST, Pharmacy: [facility] Start Date: 09/19/18 Stop Date: 11/09/18 [...] 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 daily 3 months 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, # 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, 0 Refill(s), 03/16/19 6:45:00 [...] 3 Refill(s), Start Date: 12/20/18 1:37:00 PM MAC ARTIST, Pharmacy: [facility] Start Date: 12/20/18 Stop Date: 09/30/22 [...] 11:55:00 AM CDT, Pharmacy: [facility], 173, cm, 03/31/24 10:46:00 CDT, Height/Length Measured, [...] Start Date: 04/19/24 10:19:00 AM CDT, Pharmacy: [facility] #[id number], 173, cm, 03/31/24 10:46:00 CDT, Height/Length Measured, 88.2, kg, 03/31/24 10:51:00 CDT, Weight Dosing Start Date: 04/19/24 Stop Date: 06/21/24 Status: Completed gabapentin 300 mg oral capsule 1 cap(s), Oral, TID, # 90 cap(s), 11 Refill(s), Start Date: 07/07/24 10:05:00 AM CDT, Pharmacy: [facility] #[id number], 173, cm, 07/07/24 9:24:00 CDT, Height/Length Measured, 88.2, kg, 07/07/24 9:25:00 CDT, Weight Dosing Start Date: 07/07/24 Stop Date: 07/11/24 Status: Discontinued hydrocodone-acetaminophen 5 mg-325 mg oral tablet See Instructions, 1/2 to 1 tab(s) Oral TID, # 60 tab(s), 0 Refill(s), Start Date: 07/11/24 2:53:00 PM CDT, Pharmacy: [facility] #[id number], 173, cm, 07/07/24 9:24:00 CDT, Height/Length Measured,88.2, kg, 07/07/24 9:25:00 CDT, Weight Dosing Start Date: 07/11/24 Stop Date: 07/26/24 Status: Discontinued ibuprofen 600 mg oral tablet 1 tab(s), Oral, QID, PRN PRN for pain, with food or milk, # 30 tab(s), 0 Refill(s), Start Date: 03/03/23 1:53:00 PM CDT, Pharmacy: [facility], 173, cm, 11/18/22 13:25:00 MAC ARTIST, Height/Length Measured, 89.5, kg, 03/03/23 12:25:00 CDT, [...] Start Date: 07/07/24 10:05:00 AM CDT, [id number], 173, cm, 07/07/24 9:24:00 CDT, Height/Length Measured, [...] Start Date: 03/31/24 11:26:00 AM CDT, Pharmacy: [facility], 173, cm, 03/31/24 10:46:00 CDT, Height/Length Measured, 88.2, kg, 03/31/24 10:51:00 CDT, Weight Dosing Start Date: 03/31/24 Stop Date: 04/11/24 Status: Completed levoFLOXacin 500 mg oral tablet 1 tab(s), Oral, Daily, For chronic recurrent sinusitis, X 10 days, # 10 tab(s), 0 Refill(s), Start Date: 04/11/24 3:29:00 PM CDT, Pharmacy: [facility], 173, cm, 03/31/24 10:46:00 CDT, Height/Length Measured, 88.2, kg, 03/31/24 10:51:00 CDT, Weight Dosing Start Date: 04/11/24 Stop Date: 04/19/24 Status: Completed levoFLOXacin 500 mg oral tablet 1 tab(s), Oral, Daily, For chronic recurrent sinusitis, # 10 tab(s), 0 Refill(s), Start Date: 04/19/24 10:19:00 AM CDT, Pharmacy: [facility] #[id number], 173, cm, 03/31/24 10:46:00 CDT, Height/Length Measured, 88.2, kg, 03/31/24 10:51:00 CDT, Weight Dosing Start Date: 04/19/24 Stop Date: 06/06/24 Status: Completed linezolid 600 mg oral tablet 1 tab(s), Oral, q12hr, generic please, # 28 tab(s), 0 Refill(s), Start Date: 11/16/18 11:41:00 AM MAC ARTIST, Pharmacy: [facility] Start Date: 11/16/18 Stop Date: 12/02/18 Status: Completed Medrol 4 mg oral tablet 1 packet(s), Oral, ONETIME, as directed on package labeling, # 21 tab(s), 0 Refill(s), Start Date: 11/18/22 1:39:00 PM MAC ARTIST, Pharmacy: [facility], 173, cm, 11/18/22 13:25:00 MAC ARTIST, Height/Length Measured, 86.3, kg, 11/18/22 13:27:00 MAC ARTIST, Weight Dosing Start Date: 11/18/22 Stop Date: 03/09/23 Status: Completed metFORMIN 500 mg oral tablet 0.5 tab(s), Oral, BID, # 30 tab(s), 11 Refill(s), Start Date: 04/03/24 11:56:00 AM CDT, Pharmacy: [facility], 173, cm, 03/31/24 10:46:00 CDT, Height/Length Measured, 88.2, kg, 03/31/24 10:51:00 CDT, Weight Dosing Start Date: 04/03/24 Stop Date: 04/19/24 Status: Completed metFORMIN 500 mg oral tablet 0.5 tab(s), Oral, BID, # 30 tab(s), 11 Refill(s), Start Date: 04/19/24 10:19:00 AM CDT, Pharmacy: [facility] #[id number], 173, cm, 03/31/24 10:46:00 CDT, Height/Length Measured, 88.2, kg, 03/31/2410:51:00 CDT, Weight Dosing Start Date: 04/19/24 Stop Date: 06/21/24 Status: Completed metFORMIN 500 mg oral tablet 1 tab(s), Oral, BID, # 180 tab(s), 3 Refill(s), Start Date: 07/07/24 11:58:00 AM CDT, Pharmacy: [facility] #[id number], 173, cm, 07/07/24 9:24:00 CDT, Height/Length Measured, 88.2, kg, 07/07/24 9:25:00 CDT, Weight Dosing Start Date: 07/07/24 Status: Ordered MiraLax oral powder for reconstitution 17 gm, Oral, Daily, Dissolve in water before taking, # 255 gm, 0 Refill(s), Start Date: 05/21/18 10:05:00 AM CDT, Pharmacy: [facility] [id number] Start Date: 05/21/18 Stop Date: 03/31/24 Status: Completed MS Contin 15 mg oral tablet, extended release 2 tab(s), Oral, q12hr, # 28 tab(s), 0 Refill(s), Start Date: 05/21/18 10:04:00 AM CDT, Pharmacy: [facility] [id number] Start Date: 05/21/18 Stop Date: 09/09/18 Status: Completed MS Contin 30 mg oral tablet, extended release 1 tab(s), Oral, q12hr interval, 0 Refill(s), Start Date: 09/12/18 9:49:00 AM CDT Start Date: 09/12/18 Stop Date: 06/16/19 Status: Completed Multi-Day Plus Minerals oral tablet 1 tab(s), Oral, Daily, # 30 tab(s), 0 Refill(s), Start Date: 09/30/22 3:49:00 PM MAC ARTIST Start Date: 09/30/22 Stop Date: 06/21/24 Status: Completed Narcan 4 mg/0.1 mL nasal spray 1 spray(s), Nasal, ONETIME, # 2 EA, 11 Refill(s), Start Date: 07/07/24 10:15:00 AM CDT, Pharmacy: [facility] #[id number], 173, cm, 07/07/24 9:24:00 CDT, Height/Length Measured, 88.2, kg, :25:00 CDT, Weight Dosing Start Date: 07/07/24 Stop Date: 07/26/24 Status: Discontinued Narcan 4 mg/0.1 mL nasal spray 1 spray(s), Nasal, ONETIME, # 2 EA, 0 Refill(s), Start Date: 08/25/24 3:51:00 PM CDT, Pharmacy: [id number], 173, cm, 07/26/24 15:14:00 CDT, Height/Length Measured, 88, kg, 08/17/24 7:54:00 CDT, Weight Dosing Start Date: 08/25/24 Status: Ordered oxycodone-acetaminophen 10 mg-325 mg oral tablet 0 Refill(s), Start Date: 11/18/22 1:27:00 PM MAC ARTIST Start Date: 11/18/22 Stop Date: 04/09/23 Status: [...] Start Date: 09/06/24 2:38:00 PM CDT, Pharmacy: [id number], 173, cm, 09/06/24 14:02:00 CDT, Height/Length Measured, 87.9, kg, 09/06/24 14:05:00 CDT, Weight Dosing Start Date: 09/06/24 Status: Ordered oxycodone-acetaminophen 5 mg-325 mg oral tablet 1 tab(s), Oral, TID, PRN PRN pain moderate 4-7, # 42 tab(s), 0 Refill(s), Start Date: 07/07/24 10:05:00 AM CDT, Pharmacy: [facility] #[id number], 173, cm, 07/07/24 9:24:00 CDT, Height/Length Measured, 88.2, kg, 07/07/24 9:25:00 CDT, Weight Dosing Start Date: 07/07/24 Stop Date: 07/11/24 Status: Discontinued oxycodone-acetaminophen 5 mg-325 mg oral tablet 1 tab(s), Oral, TID, PRN PRN pain severe 8-10, # 90 tab(s), 0 Refill(s), Start Date: 08/25/24 10:49:00 AM CDT, Pharmacy: [facility], 173, cm, 07/26/24 [...] Start Date: 05/17/18 4:24:00 PM CDT, Pharmacy: [facility] [id number] Start Date: 05/17/18 Stop Date: 09/09/18 Status: Completed Percocet 5/325 oral tablet See Instructions, PRN PRN for pain, 1 tab(s) Oral q6hr not to exceed 4000 mg acetaminophen per day,# 60 tab(s), 0 Refill(s), Start Date: 09/14/18 9:23:00 AM CDT, Pharmacy: [facility] Start Date: 09/14/18 Stop Date: 06/16/19 Status: Completed predniSONE 10 mg oral tablet 3 tab(s), Oral, BID, For inflammation and pain, # 84 tab(s), 0 Refill(s), Start Date: 08/10/24 9:14:00 AM CDT, Pharmacy: [facility], 173, cm, 07/26/24 15:14:00 CDT, Height/Length Measured, 88, kg, 07/26/24 15:24:00 CDT, Weight Dosing Start Date: 08/10/24 Stop Date: 08/25/24 Status: Discontinued predniSONE 10 mg oral tablet 3 tab(s), Oral, BID, For inflammation and pain, # 84 tab(s), 0 Refill(s), Start Date: 07/26/24 3:47:00 PM CDT, Pharmacy: [facility] #[id number], 173, cm, 07/26/24 15:14:00 CDT, Height/Length Measured, [...] Start Date: 05/21/18 10:05:00 AM CDT, Pharmacy: [facility] [id number] Start Date: 05/21/18 Stop Date: 05/31/18 Status: Completed tamsulosin 0.4 mg oral capsule 1 cap(s), Oral, Daily, # 90 cap(s), 3 Refill(s), Start Date: 12/20/18 1:38:00 PM MAC ARTIST, Pharmacy: [facility] Start Date: 12/20/18 Stop Date: 09/30/22 Status: Completed tamsulosin 0.4 mg oral capsule 1 cap(s), Oral, Daily, 0 Refill(s), Start Date: 09/09/18 7:57:00 AM CDT Start Date: 09/09/18 Stop Date: 12/20/18 Status: Discontinued traMADol 50 mg oral tablet 1 tab(s), Oral, q4hr interval, PRN PRN as needed for pain, # 12 tab(s), 0 Refill(s), Start Date: 03/03/23 1:54:00 PM CDT, Pharmacy: [facility], 173, cm, 11/18/22 13:25:00 MAC ARTIST, Height/Length Measured, 89.5, kg, 03/03/23 12:25:00 CDT, Weight Dosing Start Date: 03/03/23 Stop Date: 03/31/24 Status: Completed vancomycin 1 g intravenous injection IV, q12hr interval, prescribed by Dr Perdue, 0 Refill(s), Start Date: 10/21/18 8:45:00 AM MAC ARTIST Start Date: 10/21/18 Stop Date: 11/16/18 Status: Completed Zinc 140 mg (as elemental zinc 50 mg) oral tablet 1 tab(s), Oral, Daily, # 90 tab(s), 0 Refill(s), Start Date: 09/30/22 3:48:00 PM MAC ARTIST Start Date: 09/30/22 Stop Date: 06/21/24 Status: [...] Elbow surgery from elbow to forearm 14left [id number] procedure 16left 17LT Rotator Cuff Repair 18right 19RT Tendon Repair 20right side 21RT Wrist Surgery- Frzn wrist- 2 screws Social History Social History Type Response Sex Male Patient Care team information Personnel Name: Carlos Enrique Obando MD Address: Address: [address] [address]- [place]
--- OUTSIDE RECORDS SUMMARY | 2024-11-23 00:09 | XMS_ITS | Continuity of Care Document ---
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 Name Role Phone Carlos Enrique Obando Primary Care Physician [phone] Encounter Date(s): 04/06/24 - 04/06/24 Family Medicine [facility] [address] [place] [address]- Discharge Disposition: Discharged to Home or Self [...] Start Date: 04/22/23 10:25:00 AM CDT, Pharmacy: [facility], 173, cm, 04/09/23 15:48:00 CDT, Height/Length [...] Start Date: 03/09/23 10:48:00 AM CDT, Pharmacy: [facility], 173, cm, 03/09/23 10:20:00 CDT, Height/Length Measured, 89.5, kg, 03/09/23 10:22:00 CDT, Weight Dosing Start Date: 03/09/23 Stop Date: 08/27/23 Status: Completed amLODIPine 5 mg oral tablet 1 tab(s), Oral, Daily, # 90 tab(s), 3 Refill(s), Start Date: 08/27/23 8:41:00 AM CDT, Pharmacy: [facility], 173, cm, 04/09/23 15:48:00 CDT, Height/Length [...] Start Date: 03/09/23 10:49:00 AM CDT, Pharmacy: [facility], 173, cm, 03/09/23 10:20:00 CDT, Height/Length Measured, 89.5, kg, 03/09/23 10:22:00 CDT,Weight Dosing Start Date: 03/09/23 Stop Date: 04/22/23 Status: Completed baclofen 10 mg oral tablet 1 tab(s), Oral, TID, # 30 tab(s), 1 Refill(s), Start Date: 04/22/23 11:37:00 AM CDT, [facility], cm, 04/09/23 15:48:00 CDT, Height/Length Measured, 87.6, kg, 04/09/23 15:50:00 CDT, Weight Dosing Start Date: 04/22/23 Stop Date: 03/31/24 Status: Completed baclofen 10 mg oral tablet 0 Refill(s), Start Date: 11/18/22 1:27:00 PM CLIENT SUCCESS MANAGER Start Date: 11/18/22 Stop Date: 03/09/23 Status: Discontinued baclofen 10 mg oral tablet 1 tab(s), Oral, TID, PRN PRN for pain, 0 Refill(s), Start Date: 05/15/18 11:15:00 PM CDT Start Date: 05/15/18 Stop Date: 06/16/19 Status: Completed baclofen 10 mg tablet baclofen 10 mg tablet, 1 tab(s), Oral, TID, # 30 tab(s), 2 Refill(s), Pharmacy: [facility], 173, cm, 04/09/23 15:48:00 CDT, Height/Length Measured, 87.6, kg, 04/09/23 15:50:00 CDT, Weight Dosing Start Date: 06/08/23 Stop Date: 03/31/24 Status: Completed baclofen 10 mg tablet baclofen 10 mg tablet, 1 tab(s), Oral, TID, # 30 tab(s), 2 Refill(s), Pharmacy: [facility], 173, cm, 04/09/23 15:48:00 CDT, Height/Length [...] 0 Refill(s), Start Date: 11/09/18 6:34:00 PM CLIENT SUCCESS MANAGER, Pharmacy: [facility] Start Date: 11/09/18 Stop Date: 12/16/18 Status: Completed ciprofloxacin 750 mg oral tablet 1 tab(s), Oral, q12hr, 2h away from dairy, X 14 days, # 28 tab(s), 2 Refill(s), Start Date: :21:00 PM CLIENT SUCCESS MANAGER, Pharmacy: [facility] Start Date: 09/19/18 Stop Date: 11/09/18 [...] 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 Start Date: 12/20/18 Stop Date: 09/30/22 Status: Completed finasteride 5 mg oral tablet 1 tab(s), Oral, Daily, # 30 tab(s), 0 Refill(s), Start Date: 03/31/24 10:43:00 AM CDT Start Date: 03/31/24 Status: Ordered fluticasone 50 mcg/inh nasal spray 2 spray(s), Nasal, BID, # 16 gm, 11 Refill(s), Start Date: 04/03/24 11:55:00 AM CDT, Pharmacy: [facility], 173, cm, 03/31/24 10:46:00 CDT, Height/Length [...] Start Date: 03/03/23 1:53:00 PM CDT, Pharmacy: [facility], 173, cm, 11/18/22 13:25:00 CLIENT SUCCESS MANAGER, Height/Length Measured, 89.5, kg, 03/03/23 12:25:00 [...] Start Date: 03/31/24 11:26:00 AM CDT, Pharmacy: [facility], 173, cm, 03/31/24 10:46:00 CDT, Height/Length Measured, 88.2, kg, 03/31/24 10:51:00 CDT, Weight Dosing Start Date: 03/31/24 Stop Date: 04/10/24 Status: Ordered linezolid 600 mg oral tablet 1 tab(s), Oral, q12hr, generic please, # 28 tab(s), 0 Refill(s), Start Date: 11/16/18 11:41:00 AM CLIENT SUCCESS MANAGER, Pharmacy: [facility] Start Date: 11/16/18 Stop Date: 12/02/18 Status: Completed Medrol 4 mg oral tablet 1 packet(s), Oral, ONETIME, as directed on package labeling, # 21 tab(s), 0 Refill(s), Start Date: 11/18/22 1:39:00 PM CLIENT SUCCESS MANAGER, Pharmacy: [facility], 173, cm, 11/18/22 13:25:00 CLIENT SUCCESS MANAGER, Height/Length Measured, 86.3, kg, 11/18/22 13:27:00 CLIENT SUCCESS MANAGER, Weight Dosing Start Date: 11/18/22 Stop Date: 03/09/23 Status: Completed metFORMIN 500 mg oral tablet 0.5 tab(s), Oral, BID, # 30 tab(s), 11 Refill(s), Start Date: 04/03/24 11:56:00 AM CDT, Pharmacy: [facility], 173, cm, 03/31/24 10:46:00 CDT, Height/Length Measured, 88.2, kg, 03/31/24 10:51:00 CDT, Weight Dosing Start Date: 04/03/24 Status: Ordered MiraLax oral powder for reconstitution 17 gm, Oral, Daily, Dissolve in water before taking, # 255 gm, 0 Refill(s), Start Date: 05/21/18 10:05:00 AM CDT, Pharmacy: [facility] [id number] Start Date: 05/21/18 Stop Date: 03/31/24 Status: Completed MS Contin 15 mg oral tablet, extended release 2 tab(s), Oral, q12hr, # 28 tab(s), 0 Refill(s), Start Date: 05/21/18 10:04:00 AM CDT, Pharmacy: [facility] [id number] Start Date: 05/21/18 Stop Date: 09/09/18 Status: Completed MS Contin 30 mg oral tablet, extended release 1 tab(s), Oral, q12hr interval, 0 Refill(s), Start Date: 09/12/18 9:49:00 AM CDT Start Date: 09/12/18 Stop Date: 06/16/19 Status: Completed Multi-Day Plus Minerals oral tablet 1 tab(s), Oral, Daily, # 30 tab(s), 0 Refill(s), Start Date: 09/30/22 3:49:00 PM CLIENT SUCCESS MANAGER Start Date: 09/30/22 Status: Ordered oxycodone-acetaminophen 10 mg-325 mg oral tablet 0 Refill(s), Start Date: 11/18/22 1:27:00 PM CLIENT SUCCESS MANAGER Start Date: 11/18/22 Stop Date: 04/09/23 [...] Start Date: 05/17/18 4:24:00 PM CDT, Pharmacy: [facility] [id number] Start Date: 05/17/18 Stop Date: 09/09/18 Status: Completed Percocet 5/325 oral tablet See Instructions, PRN PRN for pain, 1 tab(s) Oral q6hr not to exceed 4000 mg acetaminophen per day,# 60 tab(s), 0 Refill(s), Start Date: 09/14/18 9:23:00 AM CDT, Pharmacy: [facility] Start Date: 09/14/18 Stop Date: 06/16/19 Status: Completed pregabalin 75 mg oral capsule 1 cap(s), Oral, BID, 0 Refill(s), Start Date: 03/31/24 10:44:00 AM CDT Start Date: 03/31/24 Status: Ordered Senokot S 50 mg-8.6 mg oral tablet 1 tab(s), Oral, BID, X 10 days, # 20 tab(s), 0 Refill(s), Start Date: 05/21/18 10:05:00 AM CDT, Pharmacy: [facility] [id number] Start Date: 05/21/18 Stop Date: 05/31/18 Status: Completed tamsulosin 0.4 mg oral capsule 1 cap(s), Oral, Daily, # 90 cap(s), 3 Refill(s), Start Date: 12/20/18 1:38:00 PM CLIENT SUCCESS MANAGER, Pharmacy: [facility] Start Date: 12/20/18 Stop Date: 09/30/22 Status: Completed tamsulosin 0.4 mg oral capsule 1 cap(s), Oral, Daily, 0 Refill(s), Start Date: 09/09/18 7:57:00 AM CDT Start Date: 09/09/18 Stop Date: 12/20/18 Status: Discontinued traMADol 50 mg oral tablet 1 tab(s), Oral, q4hr interval, PRN PRN as needed for pain, # 12 tab(s), 0 Refill(s), Start Date: 03/03/23 1:54:00 PM CDT, Pharmacy: [facility], 173, cm, 11/18/22 13:25:00 CLIENT SUCCESS MANAGER, Height/Length Measured, 89.5, kg, 03/03/23 12:25:00 CDT, Weight Dosing Start Date: 03/03/23 Stop Date: 03/31/24 Status: Completed vancomycin 1 g intravenous injection IV, q12hr interval, prescribed by Dr Perdue, 0 Refill(s), Start Date: 10/21/18 8:45:00 AM CLIENT SUCCESS MANAGER Start Date: 10/21/18 Stop Date: 11/16/18 Status: Completed Zinc 140 mg (as elemental zinc 50 mg) oral tablet 1 tab(s), Oral, Daily, # 90 tab(s), 0 Refill(s), Start Date: 09/30/22 3:48:00 PM CLIENT SUCCESS MANAGER Start Date: 09/30/22 Status: Ordered Problem [...] surgery 9 Completed Hip replacement 10 Comple lboito shoulder surgery 11 Compl eted Shoulder surgery [...] Name: Carlos Enrique Obando MD Address: Address: [address] [place] [id number]- [place]
--- OUTSIDE RECORDS SUMMARY | 2024-11-23 00:09 | XMS_ITS | Continuity of Care Document ---
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 Name Role Phone Carlos Enrique Obando Primary Care Physician Encounter Date(s): 05/08/24 - 05/08/24 [facility] [address] [place] [address]- Discharge Disposition: Discharged to Home or Self [...] Date: 04/22/23 10:25:00 AM CDT, Pharmacy: [facility], 173, cm, 04/09/23 15:48:00 CDT, [...] Date: 03/09/23 10:48:00 AM CDT, Pharmacy: [facility], 173, cm, 03/09/23 10:20:00 CDT, Height/Length Measured, 89.5, kg, 03/09/23 10:22:00 CDT, Weight Dosing Start Date: 03/09/23 Stop Date: 08/27/23 Status: Completed amLODIPine 5 mg oral tablet 1 tab(s), Oral, Daily, # 90 tab(s), 3 Refill(s), Start Date: 08/27/23 8:41:00 AM CDT, Pharmacy: [facility], 173, cm, 04/09/23 15:48:00 CDT, [...] Date: 03/09/23 10:49:00 AM CDT, Pharmacy: [facility], 173, cm, 03/09/23 10:20:00 CDT, Height/Length Measured, 89.5, kg, 03/09/23 10:22:00 CDT,Weight Dosing Start Date: 03/09/23 Stop Date: 04/22/23 Status: Completed baclofen 10 mg oral tablet 1 tab(s), Oral, TID, # 30 tab(s), 1 Refill(s), Start Date: 04/22/23 11:37:00 AM CDT, [facility], cm, 04/09/23 15:48:00 CDT, Height/Length Measured, 87.6, kg, 04/09/23 15:50:00 CDT, Weight Dosing Start Date: 04/22/23 Stop Date: 03/31/24 Status: Completed baclofen 10 mg oral tablet 0 Refill(s), Start Date: 11/18/22 1:27:00 PM [employer] Start Date: 11/18/22 Stop Date: 03/09/23 Status: Discontinued baclofen 10 mg oral tablet 1 tab(s), Oral, TID, PRN PRN for pain, 0 Refill(s), Start Date: 05/15/18 11:15:00 PM CDT Start Date: 05/15/18 Stop Date: 06/16/19 Status: Completed baclofen 10 mg tablet baclofen 10 mg tablet, 1 tab(s), Oral, TID, # 30 tab(s), 2 Refill(s), Pharmacy: [facility], 173, cm, 04/09/23 15:48:00 CDT, Height/Length Measured, 87.6, kg, 04/09/23 15:50:00 CDT, Weight Dosing Start Date: 06/08/23 Stop Date: 03/31/24 Status: Completed baclofen 10 mg tablet baclofen 10 mg tablet, 1 tab(s), Oral, TID, # 30 tab(s), 2 Refill(s), Pharmacy: [facility], 173, cm, 04/09/23 15:48:00 CDT, [...] 0 Refill(s), Start Date: 11/09/18 6:34:00 PM [employer], Pharmacy: [facility] Start Date: 11/09/18 Stop Date: 12/16/18 Status: Completed ciprofloxacin 750 mg oral tablet 1 tab(s), Oral, q12hr, 2h away from dairy, X 14 days, # 28 tab(s), 2 Refill(s), Start Date: :21:00 PM [employer], Pharmacy: [facility] Start Date: 09/19/18 Stop Date: 11/09/18 [...] 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, # 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, 0 Refill(s), 03/16/19 6:45:00 [...] 3 Refill(s), Start Date: 12/20/18 1:37:00 PM [employer], Pharmacy: [facility] Start Date: 12/20/18 Stop Date: 09/30/22 Status: Completed finasteride 5 mg oral tablet 1 tab(s), Oral, Daily, # 30 tab(s), 0 Refill(s), Start Date: 03/31/24 10:43:00 AM CDT Start Date: 03/31/24 Status: Ordered fluticasone 50 mcg/inh nasal spray 2 spray(s), Nasal, BID, X 42 days, # 16 gm, 11 Refill(s), Start Date: 04/03/24 11:55:00 AM CDT, Pharmacy: [facility], 173, cm, 03/31/24 10:46:00 CDT, [...] Start Date: 04/19/24 10:19:00 AM CDT, Pharmacy: [facility] #[id number], 173, cm, 03/31/24 10:46:00 CDT, Height/Length Measured, 88.2, kg, 03/31/24 10:51:00 CDT, Weight Dosing Start Date: 04/19/24 Stop Date: 09/05/25 Status: Ordered ibuprofen 600 mg oral tablet 1 tab(s), Oral, QID, PRN PRN for pain, with food or milk, # 30 tab(s), 0 Refill(s), Start Date: 03/03/23 1:53:00 PM CDT, Pharmacy: [facility], 173, cm, 11/18/22 13:25:00 [employer], Height/Length Measured, 89.5, kg, 03/03/23 12:25:00 CDT, [...] Start Date: 03/31/24 11:26:00 AM CDT, Pharmacy: [facility], 173, cm, 03/31/24 10:46:00 CDT, Height/Length Measured, 88.2, kg, 03/31/24 10:51:00 CDT, Weight Dosing Start Date: 03/31/24 Stop Date: 04/11/24 Status: Completed levoFLOXacin 500 mg oral tablet 1 tab(s), Oral, Daily, For chronic recurrent sinusitis, X 10 days, # 10 tab(s), 0 Refill(s), Start Date: 04/11/24 3:29:00 PM CDT, Pharmacy: [facility], 173, cm, 03/31/24 10:46:00 CDT, Height/Length Measured, 88.2, kg, 03/31/24 10:51:00 CDT, Weight Dosing Start Date: 04/11/24 Stop Date: 04/19/24 Status: Completed levoFLOXacin 500 mg oral tablet 1 tab(s), Oral, Daily, For chronic recurrent sinusitis, # 10 tab(s), 0 Refill(s), Start Date: 04/19/24 10:19:00 AM CDT, Pharmacy: [facility] #[id number], 173, cm, 03/31/24 10:46:00 CDT, Height/Length Measured, 88.2, kg, 03/31/24 10:51:00 CDT, Weight Dosing Start Date: 04/19/24 Stop Date: 04/29/24 Status: Ordered linezolid 600 mg oral tablet 1 tab(s), Oral, q12hr, generic please, # 28 tab(s), 0 Refill(s), Start Date: 11/16/18 11:41:00 AM [employer], Pharmacy: [facility] Start Date: 11/16/18 Stop Date: 12/02/18 Status: Completed Medrol 4 mg oral tablet 1 packet(s), Oral, ONETIME, as directed on package labeling, # 21 tab(s), 0 Refill(s), Start Date: 11/18/22 1:39:00 PM [employer], Pharmacy: [facility], 173, cm, 11/18/22 13:25:00 [employer], Height/Length Measured, 86.3, kg, 11/18/22 13:27:00 [employer], Weight Dosing Start Date: 11/18/22 Stop Date: 03/09/23 Status: Completed metFORMIN 500 mg oral tablet 0.5 tab(s), Oral, BID, # 30 tab(s), 11 Refill(s), Start Date: 04/03/24 11:56:00 AM CDT, Pharmacy: [facility], 173, cm, 03/31/24 10:46:00 CDT, Height/Length Measured, 88.2, kg, 03/31/24 10:51:00 CDT, Weight Dosing Start Date: 04/03/24 Stop Date: 04/19/24 Status: Completed metFORMIN 500 mg oral tablet 0.5 tab(s), Oral, BID, # 30 tab(s), 11 Refill(s), Start Date: 04/19/24 10:19:00 AM CDT, Pharmacy: [facility] #[id number], 173, cm, 03/31/24 10:46:00 CDT, Height/Length Measured, 88.2, kg, 03/31/2410:51:00 CDT, Weight Dosing Start Date: 04/19/24 Status: Ordered MiraLax oral powder for reconstitution 17 gm, Oral, Daily, Dissolve in water before taking, # 255 gm, 0 Refill(s), Start Date: 05/21/18 10:05:00 AM CDT, Pharmacy: [facility] [id number] Start Date: 05/21/18 Stop Date: 03/31/24 Status: Completed MS Contin 15 mg oral tablet, extended release 2 tab(s), Oral, q12hr, # 28 tab(s), 0 Refill(s), Start Date: 05/21/18 10:04:00 AM CDT, Pharmacy: [facility] [id number] Start Date: 05/21/18 Stop Date: 09/09/18 Status: Completed MS Contin 30 mg oral tablet, extended release 1 tab(s), Oral, q12hr interval, 0 Refill(s), Start Date: 09/12/18 9:49:00 AM CDT Start Date: 09/12/18 Stop Date: 06/16/19 Status: Completed Multi-Day Plus Minerals oral tablet 1 tab(s), Oral, Daily, # 30 tab(s), 0 Refill(s), Start Date: 09/30/22 3:49:00 PM [employer] Start Date: 09/30/22 Status: Ordered oxycodone-acetaminophen 10 mg-325 mg oral tablet 0 Refill(s), Start Date: 11/18/22 1:27:00 PM [employer] Start Date: 11/18/22 Stop Date: 04/09/23 Status: [...] Start Date: 05/17/18 4:24:00 PM CDT, Pharmacy: [facility] [id number] Start Date: 05/17/18 Stop Date: 09/09/18 Status: Completed Percocet 5/325 oral tablet See Instructions, PRN PRN for pain, 1 tab(s) Oral q6hr not to exceed 4000 mg acetaminophen per day,# 60 tab(s), 0 Refill(s), Start Date: 09/14/18 9:23:00 AM CDT, Pharmacy: [facility] Start Date: 09/14/18 Stop Date: 06/16/19 Status: Completed pregabalin 75 mg oral capsule 1 cap(s), Oral, BID, 0 Refill(s), Start Date: 03/31/24 10:44:00 AM CDT Start Date: 03/31/24 Status: Ordered Senokot S 50 mg-8.6 mg oral tablet 1 tab(s), Oral, BID, X 10 days, # 20 tab(s), 0 Refill(s), Start Date: 05/21/18 10:05:00 AM CDT, Pharmacy: [facility] [id number] Start Date: 05/21/18 Stop Date: 05/31/18 Status: Completed tamsulosin 0.4 mg oral capsule 1 cap(s), Oral, Daily, # 90 cap(s), 3 Refill(s), Start Date: 12/20/18 1:38:00 PM [employer], Pharmacy: [facility] Start Date: 12/20/18 Stop Date: 09/30/22 Status: Completed tamsulosin 0.4 mg oral capsule 1 cap(s), Oral, Daily, 0 Refill(s), Start Date: 09/09/18 7:57:00 AM CDT Start Date: 09/09/18 Stop Date: 12/20/18 Status: Discontinued traMADol 50 mg oral tablet 1 tab(s), Oral, q4hr interval, PRN PRN as needed for pain, # 12 tab(s), 0 Refill(s), Start Date: 03/03/23 1:54:00 PM CDT, Pharmacy: [facility], 173, cm, 11/18/22 13:25:00 [employer], Height/Length Measured, 89.5, kg, 03/03/23 12:25:00 CDT, Weight Dosing Start Date: 03/03/23 Stop Date: 03/31/24 Status: Completed vancomycin 1 g intravenous injection IV, q12hr interval, prescribed by Dr Perdue, 0 Refill(s), Start Date: 10/21/18 8:45:00 AM [employer] Start Date: 10/21/18 Stop Date: 11/16/18 Status: Completed Zinc 140 mg (as elemental zinc 50 mg) oral tablet 1 tab(s), Oral, Daily, # 90 tab(s), 0 Refill(s), Start Date: 09/30/22 3:48:00 PM [employer] Start Date: 09/30/22 Status: Ordered Problem List [...] Elbow surgery from elbow to forearm 13left [id number] procedure 15left 16LT Rotator Cuff Repair 17right 18RT Tendon Repair 19right side 20RT Wrist Surgery- Frzn wrist- 2 screws Results Radiology Reports * Exam Date Time Procedure Performing Provider Status 05/08/24 11:00 AM MRI Lumbar Spine WO Contrast Brielle Wall ARRT: (R)(MR); Auth (Verified) Notes: (MRI Lumbar Spine WO Contrast) Reason For Exam: back pain, requesting KOTA Report MRI Lumbar Spine WO Contrast CLINICAL HISTORY: back pain, requesting KOTA TECHNIQUE: Parasagittal and axial multisequence imaging of the lumbar spine performed without IV contrast enhancement. COMPARISON: No previous MRI. CT abdomen pelvis dated 03/03/2023 FINDINGS: For purposes of this dictation, it is assumed that there are 5 [id number], lumbar-type vertebrae, and the most caudal fully [...] L5-S1. Electronically signed by Will Lazcano M.D.. Final Dictated by: Sharon Morris DT/TM: 05/08/2024 1:47 pm Signed by: Will Lazcano MD Signed (Electronic Signature): 05/08/2024 2:08 pm * Exam Date Time Procedure Performing Provider Status 05/08/24 11:50 AM MRI Shoulder WO Cont rast RT Brielle Wall ARRT: (R)(MR); Auth (Verified) Notes: (MRI Shoulder WO Contrast RT) Reason For Exam: RT Shoulder pain, Rt arm numbness Report History: Right shoulder pain. Right arm numbness. Technique: Multiplanar multisequence MRI imaging of the right shoulder performed without contrast enhancement. Comparison: No previous MRI. No shoulder x-rays. Findings: There is motion artifact. I believe exam is still adequate for diagnostic purposes. Thereare postoperative changes with multiple humerus fixation devices. Biceps tendon appears appropriately positioned. There is some intrasubstance signal compatible with mild tendinitis. There is no significant joint effusion at the glenohumeral joint. There are arthritic changes with mild joint effusion at the acromioclavicular joint. There is subacromial fluid compatible with bursitis. There is subdeltoid fluid compatible with bursitis. There is intrasubstance signal within the distal aspect of the infraspinatus and supraspinatus compatible with severe tendinopathy. There is at least a partial u ndersurface tear distal supraspinatus tendon. Superior labrum is irregular compatible with degenerative changes. IMPRESSION: POSTOPERATIVE CHANGES AGAIN SURGICAL HISTORY CORRELATION IS NECESSARY. SEVERE ROTATOR CUFF TENDINOPATHY. PARTIAL UNDERSURFACE TEAR DISTAL SUPRASPINATUS TENDON. BICEPS TENDINITIS. SUBDELTOID AND SUBACROMIAL BURSITIS. Electronically signed by Sin Cespedes M.D.. Final Dictated by: Sin Cespedes MD Dictated DT/TM: 05/08/2024 12:05 pm Signed by: Sin Cespedes MD Signed (Electronic Signature): 05/08/2024 12:09 pm Social History Social History Type Response Sex Male Patient Care team information Personnel Name: Carlos Enrique Obando MD Address: Address: [address] [place] [address]
--- OUTSIDE RECORDS SUMMARY | 2024-11-23 00:09 | XMS_ITS | Continuity of Care Document ---
Author Organization [facility] Address [address] [address] Care Team Providers Care Senior Manufacturing Supervisor Name Role Phone Carlos Enrique Obando Primary Care Physician Encounter Date(s): 06/12/24 - 06/12/24 [facility] [address] [place] [address]- Discharge Disposition: Discharged to Home or Self [...] Start Date: 04/22/23 10:25:00 AM CDT, Pharmacy: [facility], 173, cm, 04/09/23 [...] Start Date: 03/09/23 10:48:00 AM CDT, Pharmacy: [facility], 173, cm, 03/09/23 [...] Start Date: 04/22/23 11:37:00 AM CDT, [facility], [facility], 04/09/23 15:48:00 CDT, Height/Length Measured, 87.6, kg, 04/09/23 15:50:00 CDT, Weight Dosing Start Date: 04/22/23 Stop Date: 03/31/24 Status: Completed baclofen 10 mg oral tablet 0 Refill(s), Start Date: 11/18/22 1:27:00 PM [employer] Start Date: 11/18/22 Stop Date: 03/09/23 Status: Discontinued baclofen 10 mg oral tablet 1 tab(s), Oral, TID, PRN PRN for pain, 0 Refill(s), Start Date: 05/15/18 11:15:00 PM CDT Start Date: 05/15/18 Stop Date: 06/16/19 Status: Completed baclofen 10 mg tablet baclofen 10 mg tablet, 1 tab(s), Oral, TID, # 30 tab(s), 2 Refill(s), Pharmacy: [facility], 173, cm, 04/09/23 15:48:00 CDT, Height/Length [...] 0 Refill(s), Start Date: 11/09/18 6:34:00 PM [employer], Pharmacy: 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, 0 Refill(s), 03/16/19 6:45:00 [...] 3 Refill(s), Start Date: 12/20/18 1:37:00 PM [employer], [facility] Start Date: 12/20/18 Stop Date: 09/30/22 [...] Start Date: 04/19/24 10:19:00 AM CDT, Pharmacy: [facility] #[id number], 173, cm, 03/31/24 10:46:00 CDT, Height/Length Measured, 88.2, kg, 03/31/24 10:51:00 CDT, Weight Dosing Start Date: 04/19/24 Stop Date: 09/05/25 Status: Ordered ibuprofen 600 mg oral tablet 1 tab(s), Oral, QID, PRN PRN for pain, with food or milk, # 30 tab(s), 0 Refill(s), Start Date: 03/03/23 1:53:00 PM CDT, Pharmacy: [facility], 173, cm, 11/18/22 13:25:00 [employer], Height/Length Measured, 89.5, kg, 03/03/23 12:25:00 [...] Start Date: 03/31/24 11:26:00 AM CDT, [facility], 173, cm, 03/31/24 10:46:00 CDT, Height/Length Measured, 88.2, kg, 03/31/24 10:51:00 CDT, Weight Dosing Start Date: 03/31/24 Stop Date: 04/11/24 Status: Completed levoFLOXacin 500 mg oral tablet 1 tab(s), Oral, Daily, For chronic recurrent sinusitis, X 10 days, # 10 tab(s), 0 Refill(s), Start Date: 04/11/24 3:29:00 PM CDT, Pharmacy: [facility], 173, cm, 03/31/24 10:46:00 CDT, Height/Length Measured, 88.2, kg, 03/31/24 10:51:00 CDT, Weight Dosing Start Date: 04/11/24 Stop Date: 04/19/24 Status: Completed levoFLOXacin 500 mg oral tablet 1 tab(s), Oral, Daily, For chronic recurrent sinusitis, # 10 tab(s), 0 Refill(s), Start Date: 04/19/24 10:19:00 AM CDT, Pharmacy: [facility] #[id number], 173, cm, 03/31/24 10:46:00 CDT, Height/Length Measured, 88.2, kg, 03/31/24 10:51:00 CDT, Weight Dosing Start Date: 04/19/24 Stop Date: 06/06/24 Status: Completed linezolid 600 mg oral tablet 1 tab(s), Oral, q12hr, generic please, # 28 tab(s), 0 Refill(s), Start Date: 11/16/18 11:41:00 AM [employer], [facility]acy: [facility] Start Date: 11/16/18 Stop Date: 12/02/18 Status: Completed Medrol 4 mg oral tablet 1 packet(s), Oral, ONETIME, as directed on package labeling, # 21 tab(s), 0 Refill(s), Start Date: 11/18/22 1:39:00 PM [employer], Pharmacy: [facility], 173, cm, 11/18/22 13:25:00 [employer], Height/Length Measured, 86.3, kg, 11/18/22 13:27:00 [employer], Weight Dosing Start Date: 11/18/22 Stop Date: 03/09/23 Status: Completed metFORMIN 500 mg oral tablet 0.5 tab(s), Oral, BID, # 30 tab(s), 11 Refill(s), Start Date: 04/03/24 11:56:00 AM CDT, Pharmacy: [facility], 173, cm, 03/31/24 10:46:00 CDT, Height/Length Measured, 88.2, kg, 03/31/24 10:51:00 CDT, Weight Dosing Start Date: 04/03/24 Stop Date: 04/19/24 Status: Completed metFORMIN 500 mg oral tablet 0.5 tab(s), Oral, BID, # 30 tab(s), 11 Refill(s), Start Date: 04/19/24 10:19:00 AM CDT, Pharmacy: [facility] #[id number], 173, cm, 03/31/24 10:46:00 CDT, Height/Length Measured, 88.2, kg, 03/31/2410:51:00 CDT, Weight Dosing Start Date: 04/19/24 Status: Ordered MiraLax oral powder for reconstitution 17 gm, Oral, Daily, Dissolve in water before taking, # 255 gm, 0 Refill(s), Start Date: 05/21/18 10:05:00 AM CDT, Pharmacy: [facility] [id number] Start Date: 05/21/18 Stop Date: 03/31/24 Status: Completed MS Contin 15 mg oral tablet, extended release 2 tab(s), Oral, q12hr, # 28 tab(s), 0 Refill(s), Start Date: 05/21/18 10:04:00 AM CDT, Pharmacy: [facility] [id number] Start Date: 05/21/18 Stop Date: 09/09/18 Status: Completed MS Contin 30 mg oral tablet, extended release 1 tab(s), Oral, q12hr interval, 0 Refill(s), Start Date: 09/12/18 9:49:00 AM CDT Start Date: 09/12/18 Stop Date: 06/16/19 Status: Completed Multi-Day Plus Minerals oral tablet 1 tab(s), Oral, Daily, # 30 tab(s), 0 Refill(s), Start Date: 09/30/22 3:49:00 PM [employer] Start Date: 09/30/22 Status: Ordered oxycodone-acetaminophen 10 mg-325 mg oral tablet 0 Refill(s), Start Date: 11/18/22 1:27:00 PM [employer] Start Date: 11/18/22 Stop Date: 04/09/23 [...] Start Date: 05/17/18 4:24:00 PM CDT, Pharmacy: [facility] [id number] Start Date: 05/17/18 Stop Date: 09/09/18 Status: Completed Percocet 5/325 oral tablet See Instructions, PRN PRN for pain, 1 tab(s) Oral q6hr not to exceed 4000 mg acetaminophen per day,# 60 tab(s), 0 Refill(s), Start Date: 09/14/18 9:23:00 AM CDT, Pharmacy: [facility] Start Date: 09/14/18 Stop Date: 06/16/19 Status: Completed pregabalin 75 mg oral capsule 1 cap(s), Oral, BID, 0 Refill(s), Start Date: 03/31/24 10:44:00 AM CDT Start Date: 03/31/24 Status: Ordered Senokot S 50 mg-8.6 mg oral tablet 1 tab(s), Oral, BID, X 10 days, # 20 tab(s), 0 Refill(s), Start Date: 05/21/18 10:05:00 AM CDT, Pharmacy: [facility] [id number] Start Date: 05/21/18 Stop Date: 05/31/18 Status: Completed tamsulosin 0.4 mg oral capsule 1 cap(s), Oral, Daily, # 90 cap(s), 3 Refill(s), Start Date: 12/20/18 1:38:00 PM [employer]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, 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: [facility] Start Date: 12/20/18 Stop [...] Start Date: 03/03/23 1:54:00 PM CDT, Pharmacy: [facility], 173, cm, 11/18/22 13:25:00 W[employer]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, Height/Length Measured, 89.5, kg, 03/03/23 12:25:00 CDT, Weight Dosing Start Date: 03/03/23 Stop Date: 03/31/24 Status: Completed vancomycin 1 g intravenous injection IV, q12hr interval, prescribed by Dr Perdue, 0 Refill(s), Start Date: 10/21/18 8:45:00 AM [employer] Start Date: 10/21/18 Stop Date: 11/16/18 Status: Completed Zinc 140 mg (as elemental zinc 50 mg) oral tablet 1 tab(s), Oral, Daily, # 90 tab(s), 0 Refill(s), Start Date: 09/30/22 3:48:00 PM [employer]ST[employer] Start Date: 09/30/22 Status: Ordered Problem List [...] Elbow surgery from elbow to forearm 13left [id number] procedure 15left 16LT Rotator Cuff Repair 17right 18RT Tendon Repair 19right side 20RT Wrist Surgery- Frzn wrist- 2 screws Social History Social History Type Response Sex Male Patient Care team information Personnel Name: Carlos Enrique Obando MD Address: Address: [address] [place] [address]
--- OUTSIDE RECORDS SUMMARY | 2024-11-23 00:09 | XMS_ITS | Continuity of Care Document ---
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 Name Role Phone Carlos Enrique Obando Primary Care Physician Encounter Date(s): 08/25/24 - 08/25/24 Family Medicine [facility] [address] [place] [address]- Encounter Diagnosis Arthritis of left wrist(Discharge Diagnosis) - 08/25/24 Chronic low back pain(Discharge Diagnosis) - 08/25/24 Chronic intractable pain(Discharge Diagnosis) - 08/25/24 Bilateral leg pain(Discharge Diagnosis) - 08/25/24 Chronic neck pain(Discharge Diagnosis) - 08/25/24 Bilateral shoulder pain(Discharge Diagnosis) - 08/25/24 History of TIAs(Discharge Diagnosis) - 08/25/24 Discharge Disposition: 01 Discharged to Home or [...] Start Date: 03/09/23 10:50:00 AM CDT, Pharmacy: [facility], 173, cm, 03/09/23 10:20:00 CDT, Height/Length Measured, 89.5, kg, 03/09/23 10:22:00 CDT, Weight Dosing Start Date: 03/09/23 Stop Date: 04/22/23 Status: Completed amitriptyline 75 mg oral tablet 1 tab(s), Oral, HS, # 90 tab(s), 2 Refill(s), Start Date: 04/22/23 10:25:00 AM CDT, Pharmacy: [facility], 173, cm, 04/09/23 15:48:00 CDT, Height/Length [...] Start Date: 03/09/23 10:48:00 AM CDT, Pharmacy: [facility], 173, cm, 03/09/23 10:20:00 CDT, Height/Length Measured, 89.5, kg, 03/09/23 10:22:00 CDT, Weight Dosing Start Date: 03/09/23 Stop Date: 08/27/23 Status: Completed amLODIPine 5 mg oral tablet 1 tab(s), Oral, Daily, # 90 tab(s), 3 Refill(s), Start Date: 08/27/23 8:41:00 AM CDT, Pharmacy: [facility], 173, cm, 04/09/23 15:48:00 CDT, Height/Length [...] Start Date: 07/26/24 3:47:00 PM CDT, Pharmacy: [facility] #[id number], 173, cm, 07/26/24 15:14:00 CDT, Height/Length Measured, [...] Start Date: 07/07/24 11:58:00 AM CDT, Pharmacy: [facility] #[id number], 173, cm, 07/07/24 9:24:00 CDT, Height/Length Measured, 88.2, kg, 07/07/24 9:25:00 CDT, Weight Dosing Start Date: 07/07/24 Status: Ordered baclofen 10 mg oral tablet 1 tab(s), Oral, TID, # 30 tab(s), 0 Refill(s), Start Date: 03/09/23 10:49:00 AM CDT, Pharmacy: [facility], 173, cm, 03/09/23 10:20:00 CDT, Height/Length Measured, 89.5, kg, 03/09/23 10:22:00 CDT,Weight Dosing Start Date: 03/09/23 Stop Date: 04/22/23 Status: Completed baclofen 10 mg oral tablet 1 tab(s), Oral, TID, # 30 tab(s), 1 Refill(s), Start Date: 04/22/23 11:37:00 AM CDT, 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 Start Date: 11/18/22 Stop Date: 03/09/23 Status: Discontinued baclofen 10 mg oral tablet 1 tab(s), Oral, TID, PRN PRN for pain, 0 Refill(s), Start Date: 05/15/18 11:15:00 PM CDT Start Date: 05/15/18 Stop Date: 06/16/19 Status: Completed baclofen 10 mg tablet baclofen 10 mg tablet, 1 tab(s), Oral, TID, # 30 tab(s), 2 Refill(s), Pharmacy: [facility], 173, cm, 04/09/23 15:48:00 CDT, Height/Length Measured, 87.6, kg, 04/09/23 15:50:00 CDT, Weight Dosing Start Date: 06/08/23 Stop Date: 03/31/24 Status: Completed baclofen 10 mg tablet baclofen 10 mg tablet, 1 tab(s), Oral, TID, # 30 tab(s), 2 Refill(s), Pharmacy: [facility], 173, cm, 04/09/23 15:48:00 CDT, Height/Length Measured, 87.6, kg, 04/09/23 15:50:00 CDT, Weight Dosing Start Date: 06/18/23 Stop Date: 03/31/24 Status: Completed carisoprodol 250 mg oral tablet 1 tab(s), Oral, BID, # 60 tab(s), 5 Refill(s), Start Date: 07/26/24 3:47:00 PM CDT, Pharmacy: [facility] #[id number], 173, cm, 07/26/24 15:14:00 CDT, Height/Length Measured, [...] 0 Refill(s), Start Date: 11/09/18 6:34:00 PM TESTING PROJECTS ADMINISTRATOR, Pharmacy: [facility] Start Date: 11/09/18 Stop Date: 12/16/18 Status: Completed ciprofloxacin 750 mg oral tablet 1 tab(s), Oral, q12hr, 2h away from dairy, X 14 days, # 28 tab(s), 2 Refill(s), Start Date: 182:21:00 PM TESTING PROJECTS ADMINISTRATOR, Pharmacy: [facility] Start Date: 09/19/18 Stop Date: 11/09/18 [...] 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 daily 3 months 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, # 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, 0 Refill(s), 03/16/19 6:45:00 [...] 3 Refill(s), Start Date: 12/20/18 1:37:00 PM TESTING PROJECTS ADMINISTRATOR, Pharmacy: [facility] [...] Date: 04/03/24 11:55:00 AM CDT, Pharmacy: [facility], 173, cm, 03/31/24 10:46:00 CDT, Height/Length [...] Start Date: 04/19/24 10:19:00 AM CDT, Pharmacy: [facility] #[id number], 173, cm, 03/31/24 10:46:00 CDT, Height/Length Measured, 88.2, kg, 03/31/24 10:51:00 CDT, Weight Dosing Start Date: 04/19/24 Stop Date: 06/21/24 Status: Completed gabapentin 300 mg oral capsule 1 cap(s), Oral, TID, # 90 cap(s), 11 Refill(s), Start Date: 07/07/24 10:05:00 AM CDT, Pharmacy: [facility] #[id number], 173, cm, 07/07/24 9:24:00 CDT, Height/Length Measured, 88.2, kg, 07/07/24 9:25:00 CDT, Weight Dosing Start Date: 07/07/24 Stop Date: 07/11/24 Status: Discontinued hydrocodone-acetaminophen 5 mg-325 mg oral tablet See Instructions, 1/2 to 1 tab(s) Oral TID, # 60 tab(s), 0 Refill(s), Start Date: 07/11/24 2:53:00 PM CDT, Pharmacy: [facility] #[id number], 173, cm, 07/07/24 9:24:00 CDT, Height/Length Measured,88.2, kg, 07/07/24 9:25:00 CDT, Weight Dosing Start Date: 07/11/24 Stop Date: 07/26/24 Status: Discontinued ibuprofen 600 mg oral tablet 1 tab(s), Oral, QID, PRN PRN for pain, with food or milk, # 30 tab(s), 0 Refill(s), Start Date: 03/03/23 1:53:00 PM CDT, Pharmacy: [facility], 173, cm, 11/18/22 13:25:00 TESTING PROJECTS ADMINISTRATOR, Height/Length Measured, 89.5, kg, 03/03/23 12:25:00 [...] Start Date: 07/07/24 10:05:00 AM CDT, Pharmacy: [facility] #[id number], 173, cm, 07/07/24 9:24:00 CDT, Height/Length Measured, [...] Start Date: 03/31/24 11:26:00 AM CDT, Pharmacy: [facility], 173, cm, 03/31/24 10:46:00 CDT, Height/Length Measured, 88.2, kg, 03/31/24 10:51:00 CDT, Weight Dosing Start Date: 03/31/24 Stop Date: 04/11/24 Status: Completed levoFLOXacin 500 mg oral tablet 1 tab(s), Oral, Daily, For chronic recurrent sinusitis, X 10 days, # 10 tab(s), 0 Refill(s), Start Date: 04/11/24 3:29:00 PM CDT, Pharmacy: [facility], 173, cm, 03/31/24 10:46:00 CDT, Height/Length Measured, 88.2, kg, 03/31/24 10:51:00 CDT, Weight Dosing Start Date: 04/11/24 Stop Date: 04/19/24 Status: Completed levoFLOXacin 500 mg oral tablet 1 tab(s), Oral, Daily, For chronic recurrent sinusitis, # 10 tab(s), 0 Refill(s), Start Date: 04/19/24 10:19:00 AM CDT, [id number], 173, cm, 03/31/24 10:46:00 CDT, Height/Length Measured, 88.2, kg, 03/31/24 10:51:00 CDT, Weight Dosing Start Date: 04/19/24 Stop Date: 06/06/24 Status: Completed linezolid 600 mg oral tablet 1 tab(s), Oral, q12hr, generic please, # 28 tab(s), 0 Refill(s), Start Date: 11/16/18 11:41:00 AM TESTING PROJECTS ADMINISTRATOR, Pharmacy: [facility] Start Date: 11/16/18 Stop Date: 12/02/18 Status: Completed Medrol 4 mg oral tablet 1 packet(s), Oral, ONETIME, as directed on package labeling, # 21 tab(s), 0 Refill(s), Start Date: 11/18/22 1:39:00 PM TESTING PROJECTS ADMINISTRATOR, Pharmacy: [facility], 173, cm, 11/18/22 13:25:00 TESTING PROJECTS ADMINISTRATOR, Height/Length Measured, 86.3, kg, 11/18/22 13:27:00 TESTING PROJECTS ADMINISTRATOR, Weight Dosing Start Date: 11/18/22 Stop Date: 03/09/23 Status: Completed metFORMIN 500 mg oral tablet 0.5 tab(s), Oral, BID, # 30 tab(s), 11 Refill(s), Start Date: 04/03/24 11:56:00 AM CDT, Pharmacy: [facility], 173, cm, 03/31/24 10:46:00 CDT, Height/Length Measured, 88.2, kg, 03/31/24 10:51:00 CDT, Weight Dosing Start Date: 04/03/24 Stop Date: 04/19/24 Status: Completed metFORMIN 500 mg oral tablet 0.5 tab(s), Oral, BID, # 30 tab(s), 11 Refill(s), Start Date: 04/19/24 10:19:00 AM CDT, Pharmacy: [facility] #[id number], 173, cm, 03/31/24 10:46:00 CDT, Height/Length Measured, 88.2, kg, 03/31/2410:51:00 CDT, Weight Dosing Start Date: 04/19/24 Stop Date: 06/21/24 Status: Completed metFORMIN 500 mg oral tablet 1 tab(s), Oral, BID, # 180 tab(s), 3 Refill(s), Start Date: 07/07/24 11:58:00 AM CDT, [id number], 173, cm, 07/07/24 9:24:00 CDT, Height/Length Measured, 88.2, kg, 07/07/24 9:25:00 CDT, Weight Dosing Start Date: 07/07/24 Status: Ordered MiraLax oral powder for reconstitution 17 gm, Oral, Daily, Dissolve in water before taking, # 255 gm, 0 Refill(s), Start Date: 05/21/18 10:05:00 AM CDT, Pharmacy: [facility] [id number] Start Date: 05/21/18 Stop Date: 03/31/24 Status: Completed MS Contin 15 mg oral tablet, extended release 2 tab(s), Oral, q12hr, # 28 tab(s), 0 Refill(s), Start Date: 05/21/18 10:04:00 AM CDT, [id number] Start Date: 05/21/18 Stop Date: 09/09/18 Status: Completed MS Contin 30 mg oral tablet, extended release 1 tab(s), Oral, q12hr interval, 0 Refill(s), Start Date: 09/12/18 9:49:00 AM CDT Start Date: 09/12/18 Stop Date: 06/16/19 Status: Completed Multi-Day Plus Minerals oral tablet 1 tab(s), Oral, Daily, # 30 tab(s), 0 Refill(s), Start Date: 09/30/22 3:49:00 PM TESTING PROJECTS ADMINISTRATOR Start Date: 09/30/22 Stop Date: 06/21/24 Status: Completed Narcan 4 mg/0.1 mL nasal spray 1 spray(s), Nasal, ONETIME, # 2 EA, 11 Refill(s), Start Date: 07/07/24 10:15:00 AM CDT, [id number], 173, cm, 07/07/24 9:24:00 CDT, Height/Length Measured, 88.2, kg, :25:00 CDT, Weight Dosing Start Date: 07/07/24 Stop Date: 07/26/24 Status: Discontinued Narcan 4 mg/0.1 mL nasal spray 1 spray(s), Nasal, ONETIME, # 2 EA, 0 Refill(s), Start Date: 08/25/24 3:51:00 PM CDT, Pharmacy: [id number], 173, cm, 07/26/24 15:14:00 CDT, Height/Length Measured, 88, kg, 08/17/24 7:54:00 CDT, Weight Dosing Start Date: 08/25/24 Status: Ordered oxycodone-acetaminophen 10 mg-325 mg oral tablet 0 Refill(s), Start Date: 11/18/22 1:27:00 PM TESTING PROJECTS ADMINISTRATOR Start Date: 11/18/22 Stop Date: 04/09/23 [...] 10:05:00 AM CDT, Pharmacy: [facility] #[id number], 173, cm, 07/07/24 9:24:00 CDT, Height/Length Measured, 88.2, kg, 07/07/24 9:25:00 CDT, Weight Dosing Start Date: 07/07/24 Stop Date: 07/11/24 Status: Discontinued oxycodone-acetaminophen 5 mg-325 mg oral tablet 1 tab(s), Oral, TID, PRN PRN pain severe 8-10, # 90 tab(s), 0 Refill(s), Start Date: 08/25/24 10:49:00 AM CDT, Pharmacy: [id number], 173, cm, 07/26/24 15:14:00 CDT, [...] Start Date: 05/17/18 4:24:00 PM CDT, Pharmacy: [facility] [id number] Start Date: 05/17/18 Stop Date: 09/09/18 Status: Completed Percocet 5/325 oral tablet See Instructions, PRN PRN for pain, 1 tab(s) Oral q6hr not to exceed 4000 mg acetaminophen per day,# 60 tab(s), 0 Refill(s), Start Date: 09/14/18 9:23:00 AM CDT, Pharmacy: [facility] Start Date: 09/14/18 Stop Date: 06/16/19 Status: Completed predniSONE 10 mg oral tablet 3 tab(s), Oral, BID, For inflammation and pain, # 84 tab(s), 0 Refill(s), Start Date: 08/10/24 9:14:00 AM CDT, Pharmacy: [id number], 173, cm, 07/26/24 15:14:00 CDT, Height/Length Measured, 88, kg, 07/26/24 15:24:00 CDT, Weight Dosing Start Date: 08/10/24 Stop Date: 08/25/24 Status: Discontinued predniSONE 10 mg oral tablet 3 tab(s), Oral, BID, For inflammation and pain, # 84 tab(s), 0 Refill(s), Start Date: 07/26/24 3:47:00 PM CDT, Pharmacy: [facility] #[id number], 173, cm, 07/26/24 15:14:00 CDT, Height/Length Measured, [...] Start Date: 05/21/18 10:05:00 AM CDT, Pharmacy: [facility] [id number] Start Date: 05/21/18 Stop Date: 05/31/18 Status: Completed tamsulosin 0.4 mg oral capsule 1 cap(s), Oral, Daily, # 90 cap(s), 3 Refill(s), Start Date: 12/20/18 1:38:00 PM TESTING PROJECTS ADMINISTRATOR, Pharmacy: [facility] [...] Start Date: 03/03/23 1:54:00 PM CDT, Pharmacy: [facility], 173, cm, 11/18/22 13:25:00 TESTING PROJECTS ADMINISTRATOR, Height/Length Measured, 89.5, kg, 03/03/23 12:25:00 CDT, Weight Dosing Start Date: 03/03/23 Stop Date: 03/31/24 Status: Completed vancomycin 1 g intravenous injection IV, q12hr interval, prescribed by Dr Perdue, 0 Refill(s), Start Date: 10/21/18 8:45:00 AM TESTING PROJECTS ADMINISTRATOR Start Date: 10/21/18 Stop Date: 11/16/18 Status: Completed Zinc 140 mg (as elemental zinc 50 mg) oral tablet 1 tab(s), Oral, Daily, # 90 tab(s), 0 Refill(s), Start Date: 09/30/22 3:48:00 PM TESTING PROJECTS ADMINISTRATOR Start Date: 09/30/22 Stop Date: 06/21/24 [...] Elbow surgery from elbow to forearm 14left [id number] procedure 16left 17LT Rotator Cuff Repair 18right 19RT Tendon Repair 20right side 21RT Wrist Surgery- Frzn wrist- 2 screws Social History Social History Type Response Sex Male Patient Care team information Personnel Name: Carlos Enrique Obando MD Address: Address: [address] [place] [address]
--- OUTSIDE RECORDS SUMMARY | 2024-11-23 00:09 | XMS_ITS | Continuity of Care Document ---
Author Organization [facility] Address [address] [facility] [address] [place] [address] Care Team Providers Care Global Logistics Analyst Name Role Phone Carlos Enrique Obando Primary Care Physician [phone] Encounter Date(s): 09/11/24 - 09/11/24 Family Medicine [facility] [address] [place] [address]- Discharge Disposition: 01 Discharged to Home or [...] Start Date: 04/22/23 10:25:00 AM CDT, Pharmacy: [facility], 173, cm, 04/09/23 15:48:00 CDT, Height/Length [...] Start Date: 03/09/23 10:48:00 AM CDT, Pharmacy: [facility], 173, cm, 03/09/23 10:20:00 CDT, Height/Length Measured, 89.5, kg, 03/09/23 10:22:00 CDT, Weight Dosing Start Date: 03/09/23 Stop Date: 08/27/23 Status: Completed amLODIPine 5 mg oral tablet 1 tab(s), Oral, Daily, # 90 tab(s), 3 Refill(s), Start Date: 08/27/23 8:41:00 AM CDT, Pharmacy: [facility], 173, cm, 04/09/23 15:48:00 CDT, Height/Length Measured, [...] Start Date: 07/26/24 3:47:00 PM CDT, Pharmacy: [facility] #[id number], 173, cm, 07/26/24 15:14:00 CDT, Height/Length Measured, [...] Start Date: 07/07/24 11:58:00 AM CDT, Pharmacy: [facility] #[id number], 173, cm, 07/07/24 9:24:00 CDT, Height/Length Measured, 88.2, kg, 07/07/24 9:25:00 CDT, Weight Dosing Start Date: 07/07/24 Status: Ordered baclofen 10 mg oral tablet 1 tab(s), Oral, TID, # 30 tab(s), 0 Refill(s), Start Date: 03/09/23 10:49:00 AM CDT, Pharmacy: [facility], 173, cm, 03/09/23 10:20:00 CDT, Height/Length Measured, 89.5, kg, 03/09/23 10:22:00 CDT,Weight Dosing Start Date: 03/09/23 Stop Date: 04/22/23 Status: Completed baclofen 10 mg oral tablet 1 tab(s), Oral, TID, # 30 tab(s), 1 Refill(s), Start Date: 04/22/23 11:37:00 AM CDT, Pharmacy: [facility], 173, cm, 04/09/23 15:48:00 CDT, Height/Length Measured, 87.6, kg, 04/09/23 15:50:00 CDT, Weight Dosing Start Date: 04/22/23 Stop Date: 03/31/24 Status: Completed baclofen 10 mg oral tablet 0 Refill(s), Start Date: 11/18/22 1:27:00 PM OCEANIC SCIENCES PROFESSOR Start Date: 11/18/22 Stop Date: 03/09/23 [...] TID, # 30 tab(s), 2 Refill(s), Pharmacy: [facility], 173, cm, 04/09/23 15:48:00 CDT, Height/Length Measured, 87.6, kg, 04/09/23 15:50:00 CDT, Weight Dosing Start Date: 06/18/23 Stop Date: 03/31/24 Status: Completed carisoprodol 250 mg oral tablet 1 tab(s), Oral, BID, # 60 tab(s), 5 Refill(s), Start Date: 07/26/24 3:47:00 PM CDT, Pharmacy: [facility] #[id number], 173, cm, 07/26/24 15:14:00 CDT, Height/Length Measured, [...] 0 Refill(s), Start Date: 11/09/18 6:34:00 PM OCEANIC SCIENCES PROFESSOR, Pharmacy: [facility] Start Date: 11/09/18 Stop Date: 12/16/18 Status: Completed ciprofloxacin 750 mg oral tablet 1 tab(s), Oral, q12hr, 2h away from dairy, X 14 days, # 28 tab(s), 2 Refill(s), Start Date: :21:00 PM OCEANIC SCIENCES PROFESSOR, Pharmacy: [facility] Start Date: 09/19/18 Stop Date: 11/09/18 [...] 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 daily 3 months 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, # 1 boxes, 0 Refill(s), 03/16/19 6:45:00 [...] 3 Refill(s), Start Date: 12/20/18 1:37:00 PM OCEANIC SCIENCES PROFESSOR, Pharmacy: [facility] Start Date: 12/20/18 Stop Date: [...] Start Date: 04/19/24 10:19:00 AM CDT, Pharmacy: [facility] #[id number], 173, cm, 03/31/24 10:46:00 CDT, Height/Length Measured, 88.2, kg, 03/31/24 10:51:00 CDT, Weight Dosing Start Date: 04/19/24 Stop Date: 06/21/24 Status: Completed gabapentin 300 mg oral capsule 1 cap(s), Oral, TID, # 90 cap(s), 11 Refill(s), Start Date: 07/07/24 10:05:00 AM CDT, Pharmacy: [facility] #[id number], 173, cm, 07/07/24 9:24:00 CDT, Height/Length Measured, 88.2, kg, 07/07/24 9:25:00 CDT, Weight Dosing Start Date: 07/07/24 Stop Date: 07/11/24 Status: Discontinued hydrocodone-acetaminophen 5 mg-325 mg oral tablet See Instructions, 1/2 to 1 tab(s) Oral TID, # 60 tab(s), 0 Refill(s), Start Date: 07/11/24 2:53:00 PM CDT, Pharmacy: [facility] #[id number], 173, cm, 07/07/24 9:24:00 CDT, Height/Length Measured,88.2, kg, 07/07/24 9:25:00 CDT, Weight Dosing Start Date: 07/11/24 Stop Date: 07/26/24 Status: Discontinued ibuprofen 600 mg oral tablet 1 tab(s), Oral, QID, PRN PRN for pain, with food or milk, # 30 tab(s), 0 Refill(s), Start Date: 03/03/23 1:53:00 PM CDT, Pharmacy: [facility], 173, cm, 11/18/22 13:25:00 OCEANIC SCIENCES PROFESSOR, Height/Length Measured, 89.5, kg, 03/03/23 12:25:00 [...] Start Date: 07/07/24 10:05:00 AM CDT, [id number], 173, cm, 07/07/24 9:24:00 CDT, Height/Length Measured, [...] Start Date: 03/31/24 11:26:00 AM CDT, Pharmacy: [facility], 173, cm, 03/31/24 10:46:00 CDT, Height/Length [...] AM CDT, Pharmacy: [facility] #[id number], 173, cm, 03/31/24 10:46:00 CDT, Height/Length Measured, 88.2, kg, 03/31/24 10:51:00 CDT, Weight Dosing Start Date: 04/19/24 Stop Date: 06/06/24 Status: Completed linezolid 600 mg oral tablet 1 tab(s), Oral, q12hr, generic please, # 28 tab(s), 0 Refill(s), Start Date: 11/16/18 11:41:00 AM OCEANIC SCIENCES PROFESSOR, Pharmacy: [facility] Start Date: 11/16/18 Stop Date: 12/02/18 Status: Completed Medrol 4 mg oral tablet 1 packet(s), Oral, ONETIME, as directed on package labeling, # 21 tab(s), 0 Refill(s), Start Date: 11/18/22 1:39:00 PM OCEANIC SCIENCES PROFESSOR, Pharmacy: [facility], 173, cm, 11/18/22 13:25:00 OCEANIC SCIENCES PROFESSOR, Height/Length Measured, 86.3, kg, 11/18/22 13:27:00 OCEANIC SCIENCES PROFESSOR, Weight Dosing Start Date: 11/18/22 Stop [...] Start Date: 04/19/24 10:19:00 AM CDT, Pharmacy: [facility] #[id number], 173, cm, 03/31/24 10:46:00 CDT, Height/Length Measured, 88.2, kg, 03/31/2410:51:00 CDT, Weight Dosing Start Date: 04/19/24 Stop Date: 06/21/24 Status: Completed metFORMIN 500 mg oral tablet 1 tab(s), Oral, BID, # 180 tab(s), 3 Refill(s), Start Date: 07/07/24 11:58:00 AM CDT, Pharmacy: [facility] #[id number], 173, cm, 07/07/24 9:24:00 CDT, Height/Length Measured, 88.2, kg, 07/07/24 9:25:00 CDT, Weight Dosing Start Date: 07/07/24 Status: Ordered MiraLax oral powder for reconstitution 17 gm, Oral, Daily, Dissolve in water before taking, # 255 gm, 0 Refill(s), Start Date: 05/21/18 10:05:00 AM CDT, Pharmacy: [id number] Start Date: 05/21/18 Stop Date: 03/31/24 Status: Completed MS Contin 15 mg oral tablet, extended release 2 tab(s), Oral, q12hr, # 28 tab(s), 0 Refill(s), Start Date: 05/21/18 10:04:00 AM CDT, Pharmacy: [facility] [id number] Start Date: 05/21/18 Stop Date: 09/09/18 Status: Completed MS Contin 30 mg oral tablet, extended release 1 tab(s), Oral, q12hr interval, 0 Refill(s), Start Date: 09/12/18 9:49:00 AM CDT Start Date: 09/12/18 Stop Date: 06/16/19 Status: Completed Multi-Day Plus Minerals oral tablet 1 tab(s), Oral, Daily, # 30 tab(s), 0 Refill(s), Start Date: 09/30/22 3:49:00 PM OCEANIC SCIENCES PROFESSOR Start Date: 09/30/22 Stop Date: 06/21/24 Status: Completed Narcan 4 mg/0.1 mL nasal spray 1 spray(s), Nasal, ONETIME, # 2 EA, 11 Refill(s), Start Date: 07/07/24 10:15:00 AM CDT, Pharmacy: [facility] #[id number], 173, cm, 07/07/24 9:24:00 CDT, Height/Length Measured, 88.2, kg, :25:00 CDT, Weight Dosing Start Date: 07/07/24 Stop Date: 07/26/24 Status: Discontinued Narcan 4 mg/0.1 mL nasal spray 1 spray(s), Nasal, ONETIME, # 2 EA, 0 Refill(s), Start Date: 08/25/24 3:51:00 PM CDT, Pharmacy: [facility], 173, cm, 07/26/24 15:14:00 CDT, Height/Length Measured, 88, kg, 08/17/24 7:54:00 CDT, Weight Dosing Start Date: 08/25/24 Status: Ordered oxycodone-acetaminophen 10 mg-325 mg oral tablet 0 Refill(s), Start Date: 11/18/22 1:27:00 PM OCEANIC SCIENCES PROFESSOR Start Date: 11/18/22 Stop Date: 04/09/23 [...] Start Date: 09/06/24 2:38:00 PM CDT, Pharmacy: [facility], 173, cm, 09/06/24 14:02:00 CDT, Height/Length Measured, 87.9, kg, 09/06/24 14:05:00 CDT, Weight Dosing Start Date: 09/06/24 Status: Ordered oxycodone-acetaminophen 5 mg-325 mg oral tablet 1 tab(s), Oral, TID, PRN PRN pain moderate 4-7, # 42 tab(s), 0 Refill(s), Start Date: 07/07/24 10:05:00 AM CDT, Pharmacy: [facility] #[id number], 173, cm, 07/07/24 9:24:00 CDT, Height/Length Measured, 88.2, kg, 07/07/24 9:25:00 CDT, Weight Dosing Start Date: 07/07/24 Stop Date: 07/11/24 Status: Discontinued oxycodone-acetaminophen 5 mg-325 mg oral tablet 1 tab(s), Oral, TID, PRN PRN pain severe 8-10, # 90 tab(s), 0 Refill(s), Start Date: 08/25/24 10:49:00 AM CDT, Pharmacy: [facility], 173, cm, 07/26/24 [...] Start Date: 05/17/18 4:24:00 PM CDT, Pharmacy: [facility] [id number] Start Date: 05/17/18 Stop Date: 09/09/18 Status: Completed Percocet 5/325 oral tablet See Instructions, PRN PRN for pain, 1 tab(s) Oral q6hr not to exceed 4000 mg acetaminophen per day,# 60 tab(s), 0 Refill(s), Start Date: 09/14/18 9:23:00 AM CDT, Pharmacy: [facility] Start Date: 09/14/18 Stop Date: 06/16/19 Status: Completed predniSONE 10 mg oral tablet 3 tab(s), Oral, BID, For inflammation and pain, # 84 tab(s), 0 Refill(s), Start Date: 08/10/24 9:14:00 AM CDT, Pharmacy: [facility], 173, cm, 07/26/24 15:14:00 CDT, Height/Length Measured, 88, kg, 07/26/24 15:24:00 CDT, Weight Dosing Start Date: 08/10/24 Stop Date: 08/25/24 Status: Discontinued predniSONE 10 mg oral tablet 3 tab(s), Oral, BID, For inflammation and pain, # 84 tab(s), 0 Refill(s), Start Date: 07/26/24 3:47:00 PM CDT, Pharmacy: [facility] #[id number], 173, cm, 07/26/24 15:14:00 CDT, Height/Length Measured, [...] Start Date: 05/21/18 10:05:00 AM CDT, Pharmacy: [facility] [id number] Start Date: 05/21/18 Stop Date: 05/31/18 Status: Completed tamsulosin 0.4 mg oral capsule 1 cap(s), Oral, Daily, # 90 cap(s), 3 Refill(s), Start Date: 12/20/18 1:38:00 PM OCEANIC SCIENCES PROFESSOR, Pharmacy: [facility] Start Date: 12/20/18 Stop Date: 09/30/22 Status: Completed tamsulosin 0.4 mg oral capsule 1 cap(s), Oral, Daily, 0 Refill(s), Start Date: 09/09/18 7:57:00 AM CDT Start Date: 09/09/18 Stop Date: 12/20/18 Status: Discontinued traMADol 50 mg oral tablet 1 tab(s), Oral, q4hr interval, PRN PRN as needed for pain, # 12 tab(s), 0 Refill(s), Start Date: 03/03/23 1:54:00 PM CDT, Pharmacy: [facility], 173, cm, 11/18/22 13:25:00 OCEANIC SCIENCES PROFESSOR, Height/Length Measured, 89.5, kg, 03/03/23 12:25:00 CDT, Weight Dosing Start Date: 03/03/23 Stop Date: 03/31/24 Status: Completed vancomycin 1 g intravenous injection IV, q12hr interval, prescribed by Dr Perdue, 0 Refill(s), Start Date: 10/21/18 8:45:00 AM OCEANIC SCIENCES PROFESSOR Start Date: 10/21/18 Stop Date: 11/16/18 Status: Completed Zinc 140 mg (as elemental zinc 50 mg) oral tablet 1 tab(s), Oral, Daily, # 90 tab(s), 0 Refill(s), Start Date: 09/30/22 3:48:00 PM OCEANIC SCIENCES PROFESSOR Start Date: 09/30/22 Stop Date: 06/21/24 [...] Elbow surgery from elbow to forearm 14left [id number] procedure 16left 17LT Rotator Cuff Repair 18right 19RT Tendon Repair 20right side 21RT Wrist Surgery- Frzn wrist- 2 screws Social History Social History Type Response Sex Male Patient Care team information Personnel Name: Carlos nErique Obando MD Address: Address: [address] [place] [address]
--- OUTSIDE RECORDS SUMMARY | 2024-11-23 00:09 | XMS_ITS | Continuity of Care Document ---
Author Organization [facility] Address [address] [facility] [address] [place] [address] Care Team Providers Care Director Skills Name Role Phone Carlos Enrique Obando Primary Care Physician [phone] Encounter Date(s): 10/26/24 - 10/26/24 Family Medicine [facility] [address] [place] [address]- Discharge Disposition: 01 Discharged to Home or [...] Start Date: 04/22/23 10:25:00 AM CDT, Pharmacy: [facility], 173, cm, 04/09/23 15:48:00 CDT, Height/Length [...] 0 Refill(s), Start Date: 10/26/24 3:34:00 PM [facility], Pharmacy: [facility], 173, cm, 09/13/24 8:29:00 CDT, Height/Length [...] Start Date: 03/09/23 10:48:00 AM CDT, Pharmacy: [facility], 173, cm, 03/09/23 10:20:00 CDT, Height/Length [...] CDT, Pharmacy: [facility] #[id number], 173, cm, 07/26/24 15:14:00 CDT, Height/Length Measured, [...] 3 Refill(s), Start Date: 10/26/24 3:34:00 PM WARES SORTER, Pharmacy: [facility], 173, cm, 09/13/24 8:29:00 CDT, Height/Length Measured, 85, kg, 09/13/24 8:32:00 CDT, Weight Dosing Start Date: 10/26/24 Status: Ordered atorvastatin 20 mg oral tablet 1 tab(s), Oral, Daily, # 90 tab(s), 3 Refill(s), Start Date: 07/07/24 11:58:00 AM CDT, Pharmacy: [facility] #[id number], 173, cm, 07/07/24 9:24:00 CDT, Height/Length Measured, [...] 0 Refill(s), Start Date: 11/18/22 1:27:00 PM WARES SORTER Start Date: 11/18/22 Stop Date: 03/09/23 Status: [...] Start Date: 07/26/24 3:47:00 PM CDT, [id number], 173, cm, 07/26/24 15:14:00 CDT, Height/Length Measured, [...] 0 Refill(s), Start Date: 11/09/18 6:34:00 PM WARES SORTER, Pharmacy: [facility] Start Date: 11/09/18 Stop Date: 12/16/18 Status: Completed ciprofloxacin 750 mg oral tablet 1 tab(s), Oral, q12hr, 2h away from dairy, X 14 days, # 28 tab(s), 2 Refill(s), Start Date: :21:00 PM WARES SORTER, Pharmacy: [facility] Start Date: 09/19/18 Stop Date: 11/09/18 [...] 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 daily 3 months 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 Start Date: 12/20/18 Stop Date: [...] Start Date: 04/19/24 10:19:00 AM CDT, Pharmacy: [facility] #[id number], 173, cm, 03/31/24 10:46:00 CDT, Height/Length Measured, 88.2, kg, 03/31/24 10:51:00 CDT, Weight Dosing Start Date: 04/19/24 Stop Date: 06/21/24 Status: Completed gabapentin 300 mg oral capsule 1 cap(s), Oral, TID, # 90 cap(s), 11 Refill(s), Start Date: 07/07/24 10:05:00 AM CDT, Pharmacy: [facility] #[id number], 173, cm, 07/07/24 9:24:00 CDT, Height/Length Measured, 88.2, kg, 07/07/24 9:25:00 CDT, Weight Dosing Start Date: 07/07/24 Stop Date: 07/11/24 Status: Discontinued hydrocodone-acetaminophen 5 mg-325 mg oral tablet See Instructions, 1/2 to 1 tab(s) Oral TID, # 60 tab(s), 0 Refill(s), Start Date: 07/11/24 2:53:00 PM CDT, Pharmacy: [facility] #[id number], 173, cm, 07/07/24 9:24:00 CDT, Height/Length Measured,88.2, kg, 07/07/24 9:25:00 CDT, Weight Dosing Start Date: 07/11/24 Stop Date: 07/26/24 Status: Discontinued ibuprofen 600 mg oral tablet 1 tab(s), Oral, QID, PRN PRN for pain, with food or milk, # 30 tab(s), 0 Refill(s), Start Date: 03/03/23 1:53:00 PM CDT, Pharmacy: [facility], 173, cm, 11/18/22 13:25:00 WARES SORTER, Height/Length Measured, 89.5, kg, 03/03/23 12:25:00 CDT, [...] Start Date: 07/07/24 10:05:00 AM CDT, Pharmacy: [facility] #[id number], 173, cm, 07/07/24 9:24:00 CDT, Height/Length Measured, [...] CDT, Pharmacy: [facility] #[id number], 173, cm, 03/31/24 10:46:00 CDT, Height/Length Measured, 88.2, kg, 03/31/24 10:51:00 CDT, Weight Dosing Start Date: 04/19/24 Stop Date: 06/06/24 Status: Completed linezolid 600 mg oral tablet 1 tab(s), Oral, q12hr, generic please, # 28 tab(s), 0 Refill(s), Start Date: 11/16/18 11:41:00 AM WARES SORTER, Pharmacy: [facility] Start Date: 11/16/18 Stop Date: 12/02/18 Status: Completed Medrol 4 mg oral tablet 1 packet(s), Oral, ONETIME, as directed on package labeling, # 21 tab(s), 0 Refill(s), Start Date: 11/18/22 1:39:00 PM WARES SORTER, Pharmacy: [facility], 173, cm, 11/18/22 13:25:00 WARES SORTER, Height/Length Measured, 86.3, kg, 11/18/22 13:27:00 WARES SORTER, Weight Dosing Start Date: 11/18/22 Stop Date: [...] AM CDT, Pharmacy: [facility] #[id number], 173, cm, 03/31/24 10:46:00 CDT, Height/Length Measured, 88.2, kg, 03/31/2410:51:00 CDT, Weight Dosing Start Date: 04/19/24 Stop Date: 06/21/24 Status: Completed metFORMIN 500 mg oral tablet 1 tab(s), Oral, BID, # 180 tab(s), 3 Refill(s), Start Date: 07/07/24 11:58:00 AM CDT, Pharmacy: [facility] #[id number], 173, cm, 07/07/24 9:24:00 CDT, Height/Length Measured, 88.2, kg, 07/07/24 9:25:00 CDT, Weight Dosing Start Date: 07/07/24 Status: Ordered MiraLax oral powder for reconstitution 17 gm, Oral, Daily, Dissolve in water before taking, # 255 gm, 0 Refill(s), Start Date: 05/21/18 10:05:00 AM CDT, Pharmacy: [facility] [id number] Start Date: 05/21/18 Stop Date: 03/31/24 Status: Completed MS Contin 15 mg oral tablet, extended release 2 tab(s), Oral, q12hr, # 28 tab(s), 0 Refill(s), Start Date: 05/21/18 10:04:00 AM CDT, [facility]acy: [facility] [id number] Start Date: 05/21/18 Stop Date: 09/09/18 Status: Completed MS Contin 30 mg oral tablet, extended release 1 tab(s), Oral, q12hr interval, 0 Refill(s), Start Date: 09/12/18 9:49:00 AM CDT Start Date: 09/12/18 Stop Date: 06/16/19 Status: Completed Multi-Day Plus Minerals oral tablet 1 tab(s), Oral, Daily, # 30 tab(s), 0 Refill(s), Start Date: 09/30/22 3:49:00 PM WARES SORTER Start Date: 09/30/22 Stop Date: 06/21/24 Status: Completed Narcan 4 mg/0.1 mL nasal spray 1 spray(s), Nasal, ONETIME, # 2 EA, 11 Refill(s), Start Date: 07/07/24 10:15:00 AM CDT, [facility]: [facility][id number], 173, cm, 07/07/24 9:24:00 CDT, Height/Length Measured, 88.2, kg, :25:00 CDT, Weight Dosing Start Date: 07/07/24 Stop Date: 07/26/24 Status: Discontinued Narcan 4 mg/0.1 mL nasal spray 1 spray(s), Nasal, ONETIME, # 2 EA, 0 Refill(s), Start Date: 08/25/24 3:51:00 PM CDT, Pharmacy: [facility], 173, cm, 07/26/24 15:14:00 CDT, Height/Length Measured, 88, kg, 08/17/24 7:54:00 CDT, Weight Dosing Start Date: 08/25/24 Status: Ordered oxycodone-acetaminophen 10 mg-325 mg oral tablet 0 Refill(s), Start Date: 11/18/22 1:27:00 PM WARES SORTER Start Date: 11/18/22 Stop Date: 04/09/23 Status: [...] 0 Refill(s), Start Date: 10/26/24 4:30:00 PM WARES SORTER, Pharmacy: [facility], 173,cm, 09/13/24 8:29:00 CDT, Height/Length Measured, 85, kg, 09/13/24 8:32:00 CDT, Weight Dosing Start Date: 10/26/24 Status: Ordered oxycodone-acetaminophen 5 mg-325 mg oral tablet 1 tab(s), Oral, TID, PRN PRN pain severe 8-10, # 90 tab(s), 0 Refill(s), Start Date: 09/06/24 2:38:00 PM CDT, Pharmacy: [facility], 173, cm, 09/06/24 [...] Start Date: 09/13/24 12:13:00 PM CDT, Pharmacy: [facility], 173, cm, 09/13/24 8:29:00 CDT, Height/Length Measured, 85, kg, 09/13/24 8:32:00 CDT, Weight Dosing Start Date: 09/13/24 Stop Date: 10/26/24 Status: Completed oxycodone-acetaminophen 5 mg-325 mg oral tablet 1 tab(s), Oral, TID, PRN PRN pain moderate 4-7, # 42 tab(s), 0 Refill(s), Start Date: 07/07/24 10:05:00 AM CDT, Pharmacy: [id number], 173, cm, 07/07/24 9:24:00 CDT, Height/Length Measured, 88.2, kg, 07/07/24 9:25:00 CDT, Weight Dosing Start Date: 07/07/24 Stop Date: 07/11/24 Status: Discontinued oxycodone-acetaminophen 5 mg-325 mg oral tablet 1 tab(s), Oral, TID, PRN PRN pain severe 8-10, # 90 tab(s), 0 Refill(s), Start Date: 08/25/24 10:49:00 AM CDT, Pharmacy: [facility], 173, cm, 07/26/24 [...] Start Date: 05/17/18 4:24:00 PM CDT, [id number] Start Date: 05/17/18 Stop Date: 09/09/18 Status: Completed Percocet 5/325 oral tablet See Instructions, PRN PRN for pain, 1 tab(s) Oral q6hr not to exceed 4000 mg acetaminophen per day,# 60 tab(s), 0 Refill(s), Start Date: 09/14/18 9:23:00 AM CDT, Pharmacy: [facility] Start Date: 09/14/18 Stop Date: 06/16/19 Status: Completed predniSONE 10 mg oral tablet 3 tab(s), Oral, BID, For inflammation and pain, # 84 tab(s), 0 Refill(s), Start Date: 08/10/24 9:14:00 AM CDT, Pharmacy: [facility], 173, cm, 07/26/24 15:14:00 CDT, Height/Length Measured, 88, kg, 07/26/24 15:24:00 CDT, Weight Dosing Start Date: 08/10/24 Stop Date: 08/25/24 Status: Discontinued predniSONE 10 mg oral tablet 3 tab(s), Oral, BID, For inflammation and pain, # 84 tab(s), 0 Refill(s), Start Date: 07/26/24 3:47:00 PM CDT, [id number], 173, cm, 07/26/24 15:14:00 CDT, Height/Length Measured, [...] Start Date: 05/21/18 10:05:00 AM CDT, Pharmacy: [facility] [id number] Start Date: 05/21/18 Stop Date: 05/31/18 Status: Completed tamsulosin 0.4 mg oral capsule 1 cap(s), Oral, Daily, # 90 cap(s), 3 Refill(s), Start Date: 12/20/18 1:38:00 PM WARES SORTER, Pharmacy: [facility] Start Date: 12/20/18 Stop Date: [...] [facility], 173, cm, 11/18/22 13:25:00 WARES SORTER, Height/Length Measured, 89.5, kg, 03/03/23 12:25:00 CDT, Weight Dosing Start Date: 03/03/23 Stop Date: 03/31/24 Status: Completed vancomycin 1 g intravenous injection IV, q12hr interval, prescribed by Dr Perdue, 0 Refill(s), Start Date: 10/21/18 8:45:00 AM WARES SORTER Start Date: 10/21/18 Stop Date: 11/16/18 Status: Completed Zinc 140 mg (as elemental zinc 50 mg) oral tablet 1 tab(s), Oral, Daily, # 90 tab(s), 0 Refill(s), Start Date: 09/30/22 3:48:00 PM WARES SORTER Start Date: 09/30/22 Stop Date: 06/21/24 Status: [...] Elbow surgery from elbow to forearm 14left [id number] procedure 16left 17LT Rotator Cuff Repair 18right 19RT Tendon Repair 20right side 21RT Wrist Surgery- Frzn wrist- 2 screws Social History Social History Type Response Sex Male Patient Care team information Personnel Name: Carlos Enrique Obando MD Address: Address: [address] [place] [address]
--- OUTSIDE RECORDS SUMMARY | 2024-11-23 00:09 | XMS_ITS | Continuity of Care Document ---
[facility] Organization [facility] Address [address] [facility] [address] [place] [address] Care Team Providers Care Computer Engineer Name Role Phone Carlos Enrique Obando Primary Care Physician [phone] Encounter Date(s): 07/07/24 - 07/07/24 Family Medicine [facility] [address] [place] [address]- Encounter Diagnosis Chronic low back pain(Discharge Diagnosis) - 07/07/24 Chronic intractable pain(Discharge Diagnosis) - 07/07/24 Benign essential HTN(Discharge Diagnosis) - 07/07/24 Hyperlipidemia, unspecified(Discharge Diagnosis) - 07/07/24 Type 2 diabetes mellitus without complications(Discharge Diagnosis) - 07/07/24 Neuropathy of leg(Discharge Diagnosis) - 07/07/24 Discharge Disposition: 01 Discharged to Home or [...] Start Date: 03/09/23 10:50:00 AM CDT, [facility], 173, cm, 03/09/23 10:20:00 CDT, Height/Length Measured, 89.5, kg, 03/09/23 10:22:00 CDT, Weight Dosing Start Date: 03/09/23 Stop Date: 04/22/23 Status: Completed amitriptyline 75 mg oral tablet 1 tab(s), Oral, HS, # 90 tab(s), 2 Refill(s), Start Date: 04/22/23 10:25:00 AM CDT, Pharmacy: [facility], 173, cm, 04/09/23 15:48:00 CDT, [...] Start Date: 03/09/23 10:48:00 AM CDT, Pharmacy: [facility], 173, cm, 03/09/23 10:20:00 CDT, Height/Length Measured, [...] AM CDT, Pharmacy: [facility] #[id number], 173, cm, 07/07/24 9:24:00 CDT, Height/Length Measured, [...] Start Date: 04/22/23 11:37:00 AM CDT, Pharmacy: [facility], 173, cm, 04/09/23 15:48:00 CDT, Height/Length Measured, 87.6, kg, 04/09/23 15:50:00 CDT, Weight Dosing Start Date: 04/22/23 Stop Date: 03/31/24 Status: Completed baclofen 10 mg oral tablet 0 Refill(s), Start Date: 11/18/22 1:27:00 PM [employer] Start Date: 11/18/22 Stop Date: 03/09/23 Status: Discontinued baclofen 10 mg oral tablet 1 tab(s), Oral, TID, PRN PRN for pain, 0 Refill(s), Start Date: 05/15/18 11:15:00 PM CDT Start Date: 05/15/18 Stop Date: 06/16/19 Status: Completed baclofen 10 mg tablet baclofen 10 mg tablet, 1 tab(s), Oral, TID, # 30 tab(s), 2 Refill(s), Pharmacy: [facility], 173, cm, 04/09/23 15:48:00 CDT, Height/Length Measured, 87.6, kg, 04/09/23 15:50:00 CDT, Weight Dosing Start Date: 06/08/23 Stop Date: 03/31/24 Status: Completed baclofen 10 mg tablet baclofen 10 mg tablet, 1 tab(s), Oral, TID, # 30 tab(s), 2 Refill(s), Pharmacy: [facility], 173, cm, 04/09/23 15:48:00 CDT, Height/Length [...] 0 Refill(s), Start Date: 11/09/18 6:34:00 PM [employer], Pharmacy: [facility] Start Date: 11/09/18 Stop Date: 12/16/18 Status: Completed ciprofloxacin 750 mg oral tablet 1 tab(s), Oral, q12hr, 2h away from dairy, X 14 days, # 28 tab(s), 2 Refill(s), Start Date: :21:00 PM [employer], Pharmacy: [facility] Start Date: 09/19/18 Stop Date: 11/09/18 [...] 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 daily 3 months 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 ADJUTANT GENERAL, # 1 boxes, 0 Refill(s), 03/16/19 6:45:00 [...] 3 Refill(s), Start Date: 12/20/18 1:37:00 PM [employer], Pharmacy: [facility] Start Date: 12/20/18 Stop Date: 09/30/22 Status: Completed finasteride 5 mg oral tablet 1 tab(s), Oral, Daily, # 30 tab(s), 0 Refill(s), Start Date: 03/31/24 10:43:00 AM CDT Start Date: 03/31/24 Stop Date: 06/21/24 Status: Completed fluticasone 50 mcg/inh nasal spray 2 spray(s), Nasal, BID, X 42 days, # 16 gm, 11 Refill(s), Start Date: 04/03/24 11:55:00 AM CDT, Pharmacy: [facility] [...] Start Date: 04/19/24 10:19:00 AM CDT, [facility]acy: [facility] #[id number], 173, cm, 03/31/24 10:46:00 CDT, Height/Length Measured, 88.2, kg, 03/31/24 10:51:00 CDT, Weight Dosing Start Date: 04/19/24 Stop Date: 06/21/24 Status: Completed gabapentin 300 mg oral capsule 1 cap(s), Oral, TID, # 90 cap(s), 11 Refill(s), Start Date: 07/07/24 10:05:00 AM CDT, Pharmacy: [facility] #[id number], 173, cm, 07/07/24 9:24:00 CDT, Height/Length Measured, 88.2, kg, 07/07/24 9:25:00 CDT, Weight Dosing Start Date: 07/07/24 Status: Ordered ibuprofen 600 mg oral tablet 1 tab(s), Oral, QID, PRN PRN for pain, with food or milk, # 30 tab(s), 0 Refill(s), Start Date: 03/03/23 1:53:00 PM CDT, Pharmacy: [facility], 173, cm, 11/18/22 13:25:00 [employer], Height/Length Measured, 89.5, kg, 03/03/23 12:25:00 [...] Start Date: 07/07/24 10:05:00 AM CDT, [id number], 173, cm, 07/07/24 9:24:00 CDT, Height/Length Measured, [...] Start Date: 03/31/24 11:26:00 AM CDT, Pharmacy: [facility], 173, cm, 03/31/24 10:46:00 CDT, Height/Length Measured, 88.2, kg, 03/31/24 10:51:00 CDT, Weight Dosing Start Date: 03/31/24 Stop Date: 04/11/24 Status: Completed levoFLOXacin 500 mg oral tablet 1 tab(s), Oral, Daily, For chronic recurrent sinusitis, X 10 days, # 10 tab(s), 0 Refill(s), Start Date: 04/11/24 3:29:00 PM CDT, Pharmacy: [facility], 173, cm, 03/31/24 10:46:00 CDT, Height/Length Measured, 88.2, kg, 03/31/24 10:51:00 CDT, Weight Dosing Start Date: 04/11/24 Stop Date: 04/19/24 Status: Completed levoFLOXacin 500 mg oral tablet 1 tab(s), Oral, Daily, For chronic recurrent sinusitis, # 10 tab(s), 0 Refill(s), Start Date: 04/19/24 10:19:00 AM CDT, Pharmacy: [facility] #[id number], 173, cm, 03/31/24 10:46:00 CDT, Height/Length Measured, 88.2, kg, 03/31/24 10:51:00 CDT, Weight Dosing Start Date: 04/19/24 Stop Date: 06/06/24 Status: Completed linezolid 600 mg oral tablet 1 tab(s), Oral, q12hr, generic please, # 28 tab(s), 0 Refill(s), Start Date: 11/16/18 11:41:00 AM [employer], Pharmacy: [facility] Start Date: 11/16/18 Stop Date: 12/02/18 Status: Completed Medrol 4 mg oral tablet 1 packet(s), Oral, ONETIME, as directed on package labeling, # 21 tab(s), 0 Refill(s), Start Date: 11/18/22 1:39:00 PM [employer], Pharmacy: [facility], 173, cm, 11/18/22 13:25:00 [employer], Height/Length Measured, 86.3, kg, 11/18/22 13:27:00 [employer], Weight Dosing Start Date: 11/18/22 Stop Date: 03/09/23 Status: Completed metFORMIN 500 mg oral tablet 0.5 tab(s), Oral, BID, # 30 tab(s), 11 Refill(s), Start Date: 04/03/24 11:56:00 AM CDT, Pharmacy: [facility], 173, cm, 03/31/24 10:46:00 CDT, Height/Length Measured, 88.2, kg, 03/31/24 10:51:00 CDT, Weight Dosing Start Date: 04/03/24 Stop Date: 04/19/24 Status: Completed metFORMIN 500 mg oral tablet 0.5 tab(s), Oral, BID, # 30 tab(s), 11 Refill(s), Start Date: 04/19/24 10:19:00 AM CDT, Pharmacy: [facility] #[id number], 173, cm, 03/31/24 10:46:00 CDT, Height/Length Measured, 88.2, kg, 03/31/2410:51:00 CDT, Weight Dosing Start Date: 04/19/24 Stop Date: 06/21/24 Status: Completed metFORMIN 500 mg oral tablet 1 tab(s), Oral, BID, # 180 tab(s), 3 Refill(s), Start Date: 07/07/24 11:58:00 AM CDT, Pharmacy: [facility] #[id number], 173, cm, 07/07/24 9:24:00 CDT, Height/Length Measured, 88.2, kg, 07/07/24 9:25:00 CDT, Weight Dosing Start Date: 07/07/24 Status: Ordered MiraLax oral powder for reconstitution 17 gm, Oral, Daily, Dissolve in water before taking, # 255 gm, 0 Refill(s), Start Date: 05/21/18 10:05:00 AM CDT, Pharmacy: [facility] [id number] Start Date: 05/21/18 Stop Date: 03/31/24 Status: Completed MS Contin 15 mg oral tablet, extended release 2 tab(s), Oral, q12hr, # 28 tab(s), 0 Refill(s), Start Date: 05/21/18 10:04:00 AM CDT, Pharmacy: [facility] [id number] Start Date: 05/21/18 Stop Date: 09/09/18 Status: Completed MS Contin 30 mg oral tablet, extended release 1 tab(s), Oral, q12hr interval, 0 Refill(s), Start Date: 09/12/18 9:49:00 AM CDT Start Date: 09/12/18 Stop Date: 06/16/19 Status: Completed Multi-Day Plus Minerals oral tablet 1 tab(s), Oral, Daily, # 30 tab(s), 0 Refill(s), Start Date: 09/30/22 3:49:00 PM [employer] Start Date: 09/30/22 Stop Date: 06/21/24 Status: Completed Narcan 4 mg/0.1 mL nasal spray 1 spray(s), Nasal, ONETIME, # 2 EA, 11 Refill(s), Start Date: 07/07/24 10:15:00 AM CDT, Pharmacy: [facility] #[id number], 173, cm, 07/07/24 9:24:00 CDT, Height/Length Measured, 88.2, kg, :25:00 CDT, Weight Dosing Start Date: 07/07/24 Status: Ordered oxycodone-acetaminophen 10 mg-325 mg oral tablet 0 Refill(s), Start Date: 11/18/22 1:27:00 PM [employer] Start Date: 11/18/22 Stop Date: 04/09/23 [...] Start Date: 07/07/24 10:05:00 AM CDT, Pharmacy: [facility] #[id number], 173, cm, 07/07/24 9:24:00 CDT, Height/Length Measured, [...] Start Date: 05/17/18 4:24:00 PM CDT, Pharmacy: [facility] [id number] Start Date: 05/17/18 Stop Date: 09/09/18 Status: Completed Percocet 5/325 oral tablet See Instructions, PRN PRN for pain, 1 tab(s) Oral q6hr not to exceed 4000 mg acetaminophen per day,# 60 tab(s), 0 Refill(s), Start Date: 09/14/18 9:23:00 AM CDT, Pharmacy: [facility] Start Date: 09/14/18 Stop Date: 06/16/19 Status: Completed pregabalin 75 mg oral capsule 1 cap(s), Oral, BID, 0 Refill(s), Start Date: 03/31/24 10:44:00 AM CDT Start Date: 03/31/24 Stop Date: 07/07/24 Status: Discontinued Senokot S 50 mg-8.6 mg oral tablet 1 tab(s), Oral, BID, X 10 days, # 20 tab(s), 0 Refill(s), Start Date: 05/21/18 10:05:00 AM CDT, Pharmacy: [facility] [id number] Start Date: 05/21/18 Stop Date: 05/31/18 Status: Completed tamsulosin 0.4 mg oral capsule 1 cap(s), Oral, Daily, # 90 cap(s), 3 Refill(s), Start Date: 12/20/18 1:38:00 PM [facility], Pharmacy: [facility] Start Date: 12/20/18 Stop [...] Start Date: 03/03/23 1:54:00 PM CDT, Pharmacy: [facility], 173, cm, 11/18/22 13:25:00 [employer], Height/Length Measured, 89.5, kg, 03/03/23 12:25:00 CDT, Weight Dosing Start Date: 03/03/23 Stop Date: 03/31/24 Status: Completed vancomycin 1 g intravenous injection IV, q12hr interval, prescribed by Dr Perdue, 0 Refill(s), Start Date: 10/21/18 8:45:00 AM [employer] Start Date: 10/21/18 Stop Date: 11/16/18 Status: Completed Zinc 140 mg (as elemental zinc 50 mg) oral tablet 1 tab(s), Oral, Daily, # 90 tab(s), 0 Refill(s), Start Date: 09/30/22 3:48:00 PM [employer] Start Date: 09/30/22 Stop Date: 06/21/24 [...] Elbow surgery from elbow to forearm 14left [id number] procedure 16left 17LT Rotator Cuff Repair 18right 19RT Tendon Repair 20right side 21RT Wrist Surgery- Frzn wrist- 2 screws Results Most recent to oldest [Reference Range]: 1 Weight Measured 88.2 kg (07/07/24 9:24 AM) Height/Length Measured 173 cm (07/07/24 9:24 AM) Body Mass Index Measured 29.47 kg/m2 (07/07/24 9:24 AM) Systolic Blood Pressure [90-120 mmHg] 10 8 mmHg (07/07/24 9:24 AM) Diastolic Blood Pressure [60-80 mmHg] 52 mmHg *LOW* (07/07/24 9:24 AM) Respiratory Rate [14-20 br/min] 17 br/mi n (07/07/24 9:24 AM) Vital Signs Most recent to oldest [Reference Range]: 1 Peripheral Pulse Rate [60-100 bpm] 78 bp m (07/07/24 9:24 AM) Respiratory Rate [14-20 br/min] 17 br/mi n (07/07/24 9:24 AM) Blood Pressure [90-120/60-80 mmHg] 108/5 2mmHg (07/07/24 9:24 AM) SpO2 [95 %] 97 % (07/07/24 9:24 AM) Mean Arterial Pressure, Cuff [70-110 mmH g] 71 mmHg (07/07/24 9:24 AM) Height/Length Measured 173 cm (07/07/24 9:24 AM) Weight Dosing 88.20 kg 1 (07/07/24 9:25 AM) Weight Measured 88.2 kg (07/07/24 9:24 AM) BSA Measured 2.02 m2 (07/07/24 9:24 AM) Body Mass Index Measured 29.47 kg/m2 (07/07/24 9:24 AM) 1Result Comment: This result was because the dosing weight was either not entered or it is >30 days old. This result is based off: Weight Measured July 07, 2024 09:24:00 CDT by Rosa Timmons LPN Social History Social History Type Response Sex Male Patient Care team information Personnel Name: Carlos Enrique Obando MD Address: Address: [address]
--- OUTSIDE RECORDS SUMMARY | 2024-11-23 00:10 | XMS_ITS | Encounter Summary ---
Author Organization [facility] Address [address] [place] [address] Phone Care Team Providers Care Electronics Engineering Technician Name Role Phone Provider, None Primary Care Provider Unavailabl e Reason for Visit * Auth/Cert Specialty Diagnoses / Procedures Referred By Celine almaguer Referred To Contact Referral ID Status Reason Start Date Expiration Date Visits Re quested Visits Authorized [id number] 1 1 Encounter Details Date Type Department Care Team (Late st Contact Info) Description 12/16/2019 10:00 AM FISH PROCESSING SUPERVISOR [facility] [address] [place] [address] Eden Haynes (Rn), [place] - [facility] RESUMPTION OF CARE Social History Tobacco Use Types Packs/Day Years Used Date Smoking Tobacco: Never Assessed Sex and Gender Information Value Date Recorded Sex Assigned at Not on file Legal Sex Male 4:33 PM FISH PROCESSING SUPERVISOR Gender Identity Not on file Sexual Orientation Not on file documented as of this encounter Last Filed Vital Signs Vital Sign Reading Time Taken Comments Blood Pressure 122/80 12/16/2019 11:16 AM FISH PROCESSING SUPERVISOR Pulse 73 12/16/2019 11:16 AM FISH PROCESSING SUPERVISOR Temperature 36.7 ??C (98 ??F) 12/16/2019 11:16 AM FISH PROCESSING SUPERVISOR Respiratory Rate 16 12/16/2019 11:16 AM FISH PROCESSING SUPERVISOR Oxygen Saturation 97% 12/16/2019 11:16 AM FISH PROCESSING SUPERVISOR Inhaled Oxygen Concentration - - Weight 86.6 kg (191 lb) 12/16/2019 11:16 AM FISH PROCESSING SUPERVISOR Height - - Body Mass Index 26.64 11/07/2019 9:02 AM FISH PROCESSING SUPERVISOR documented in this encounter Plan of Treatment Not on file documented as of this encounter Visit Diagnoses Not on filedocumented in this encounter Home Health Visit - Care Plan Visit Details Visit Type -SN - OASIS SURINDER Discipline -Residential Problems Problem Description Start Date Status Goals Interventions FALL PREVENTION (O) Disciplines: Residential, Physical Therapy, Occupational Therapy, Speech Language Pathology, Colors Custodian, Medical Social Work 11/15/2019 Resolved on 12/16/2019 1 goal linked to scheduled/docume nted intervention 1 goal intervention scheduled/documen lobito in this visit HC CARE SUMMARY Disciplines: Residential, Physical Therapy, Occupational Therapy, Speech Language Pathology, Medical Social Work, Licensed Practical Nurse, Respiratory Therapy Care Summary 11/15/2019 Resolved on 12/16/2019 1 goal linked to scheduled/docume nted intervention 1 goal intervention scheduled/documen lobito in this visit HC SN MEDICATION Disciplines: Residential SN Medication 11/15/2019 Resolved on 12/16/2019 - 1 problem intervention scheduled/documen lobito in this visit SN SOC GENERAL ORDERS Disciplines: Residential SN General Orders 11/15/2019 Resolved on 12/16/2019 1 goal linked to scheduled/docume nted intervention 1 goal intervention scheduled/documen lobito in this visit CVC TUNNELED/NON TUNNELED/PICC Disciplines: Residential CVC Tunneled/Non-Benigno neled/PICC 11/15/2019 Resolved on 12/16/2019 1 goal linked to scheduled/docume nted intervention 1 goal intervention scheduled/documen lobito in this visit HC CVC TUNNELED/NON-TUNN ELED/PICC CARE Disciplines: Residential CVC Tunneled/Non-Benigno neled/PICC Care 11/15/2019 Resolved on 12/16/2019 - 3 problem interventions scheduled/documen lobito in this visit WOUND CARE ORDERS(O) Disciplines: Residential Wound Care Orders 11/15/2019 Resolved on 12/16/2019 1 goal linked to scheduled/docume nted intervention 1 goal intervention scheduled/documen lobito in this visit FALL PREVENTION (O) Disciplines: Residential, Physical Therapy, Occupational Therapy, Speech Language Pathology, Colors Custodian, Medical Social Work 12/16/2019 Active 1 goal linked to scheduled/docume nted intervention 1 goal intervention scheduled/documen olbito in this visit HC CARE SUMMARY Disciplines: Residential, Physical Therapy, Occupational Therapy, Speech Language Pathology, Medical Social Work, Licensed Practical Nurse, Respiratory Therapy Care Summary 12/16/2019 Active 1 goal linked to scheduled/docume nted intervention 1 goal intervention scheduled/documen lobito in this visit HC SN MEDICATION Disciplines: Residential SN Medication 12/16/2019 Active - 1 problem intervention scheduled/documen lobito in this visit SN SOC GENERAL ORDERS Disciplines: Residential SN General Orders 12/16/2019 Active 1 goal linked to scheduled/docume nted intervention 1 goal intervention scheduled/documen lobito in this visit WOUND CARE ORDERS(O) Disciplines: Residential Wound Care Orders 12/16/2019 Active 1 goal linked to scheduled/docume nted intervention 1 goal intervention scheduled/documen lobito in this visit WOUND CARE ORDERS(O) Disciplines: Residential Wound Care Orders 12/16/2019 Active 1 goal linked to scheduled/docume nted intervention 1 goal intervention scheduled/documen lobito in this visit HC SN RESUMPTION OF CARE (SURINDER) Disciplines: Residential 12/16/2019 Active 1 goal linked to scheduled/docume nted intervention 1 goal intervention scheduled/documen lobito in this visit Goals Goal Associated Problem Outcome Goal Met? Visit Notes HC Fall Prevention Description: Shared goal applicable to all disciplines with a visit frequency order. Patient/ Caregiver will verbalize understanding of identified fall risk based on [facility]-10 Fall Risk assessment and methods to prevent falls. Target date: by discharge FALL PREVENTION (O) No Care Summary Description: Maintain multidisciplinary communication. HC CARE SUMMARY No HC SN General Description: After assessing the patient and discussing the patient's goals the following were identified: 1. Patient will demonstrate effective self-care management including understanding of ordered medication regimen, signs and symptoms to report, and recommended follow up with physician. Target date: by discharge 2. Patient will verbalize understanding of medication regimen including name, actions, reason for use, evaluation of effectiveness, side effects, and administration instructions. Target date: by discharge. 3. Patient centered long-term goal I want my wound to be healed. Target date: by discharge SN SOC GENERAL ORDERS No HC CVC Tunneled/Non Tunneled/PICC Description: 1. Patient will verbalize knowledge of potential adverse effects of infusion therapy, signs and symptoms to report and appropriate actions to take. 2. Patient will demonstrate ability to maintain patent and intact parenteral access device including understanding of appropriate infection control measures. 3.Patient will demonstrate independence in administration of vancomycin. 4. Patient will remain free from vascular access device related infection, and from signs and symptoms of phlebitis. Target date: by discharge CVC TUNNELED/NON TUNNELED/PICC No HC Wound Care Description: 1.Patient/ caregiver will verbalize understanding of wound treatment regimen, and signs and symptoms to report. 2. Expected wound outcome/goal: closure Target date: by discharge WOUND CARE ORDERS(O) No HC Fall Prevention Description: Shared goal applicable to all disciplines with a visit frequency order. Patient/ Caregiver will verbalize understanding of identified fall risk based on [facility]-10 Fall Risk assessment and methods to prevent falls. Target date: by discharge FALL PREVENTION (O) No Care Summary Description: Maintain multidisciplinary communication. HC CARE SUMMARY No HC SN General Description: After assessing the patient and discussing the patient's goals the following were identified: 1. Patient will demonstrate effective self-care management including understanding of ordered medication regimen, signs and symptoms to report, and recommended follow up with physician. Target date: by discharge 2. Patient will verbalize understanding of medication regimen including name, actions, reason for use, evaluation of effectiveness, side effects, and administration instructions. Target date: by discharge. 3. Patient centered long-term goal wound to heal. Target date: by discharge SN SOC GENERAL ORDERS No HC Wound Care Description: 1.Patient/ caregiver will verbalize understanding of wound treatment regimen, and signs and symptoms to report. 2. Expected wound outcome/goal: closure Target date: by discharge WOUND CARE ORDERS(O) No HC Wound Care Description: 1.Patient/ caregiver will verbalize understanding of wound treatment regimen, and signs and symptoms to report. 2. Expected wound outcome/goal: closure Target date: by discharge WOUND CARE ORDERS(O) No HC SN Resumption of Care (SURINDER) HC SN RESUMPTION OF CARE (SURINDER) No Interventions Intervention Associated Problem/Goal Status Variance Visit Notes Fall (Order Only) Description: Shared intervention applicable to all disciplines with a visit frequency order. Instruct patient/caregiver on fall prevention measures. Problem:FALL PREVENTION (O) Goal:HC Fall Prevention Scheduled Care Summary Description: THIS IS NOT AN ORDER SOC reviewed with: Therapy Evaluation reviewed with: Frequency extension reviewed with: Change in discharge plan reviewed with: Recert reviewed with: SOC/EVAL CONTENT SUMMARY: DISCIPLINES & FREQUENCIES: FALL RISK SCORE: OPC/HOSPICE NEED: ACP DISCUSSION RECORD: MEDICATION ISSUES: BARRIERS TO CARE/SAFETY CONCERNS: Date of Care Conference: Ongoing Care Conference Content: OLIVIA Alert/Threshold: Visit frequency per 30 day billing cycle: Would you be surprised if patient went to the ED or hospital? Alerts: Disease Management: Progress towards discharge: Attendees: CC Outcomes/Take-aways: Problem:HC CARE SUMMARY Goal:Care Summary Scheduled HH Medication Review/Education Problem:HC SN MEDICATION Scheduled General Nursing Plan of Care (Order Only) Description: Admission Certification: 64 y.o male admitted to Home Care Services for nursing. Estimation of how long skilled services will be required 60 days. Face to Face encounter occurred on --- with ---. Dr. Cheng contacted and agrees with plan of care. Clinical findings: Patient had surgery to right lateral ankle due to osteomyelitis. Patient has wound vac to wound, which is to be changed three times weekly. Patient is on IV vancomycin, patient has picc line in left upper arm. Patient has high level of pain, which he takes pain medication for to control pain. Patient lives with supportive spouse. Skilled Nurse Focus: wound care, IV teaching, pain management, home safety. Physical Therapy to evaluate and treat for: Not needed. Occupational Therapy to evaluate and treat for: not needed. Speech Therapy to evaluate and treat for: Not needed. Social Work Focus: Not needed. Colors Custodian to provide: Not needed. Past Medical History: Osteomyelitis Other contributing issues: lives with spouse. Skilled Nurse to instruct patient/ caregiver on signs and symptoms to report, emergency measures, safety measures, diet, and activity. Instruct on medication regime, and patient management. Perform physical assessment including vital signs and pain assessment. Perform pulse oximetry PRN for intermittent assessment and/ or respiratory distress. Parameters to report to physician- Applicable to all disciplines involved in patient's plan of care. Systolic blood pressure greater than 160 or less than 90 at rest, diastolic blood pressure greater than 100 at rest, pulse greater than 110 at rest or less than 50, temperature greater than 101 degrees Fahrenheit, new or increased edema, pulse ox less than 90%, chronic pain that changes in character, pain that interferes with activity daily, or pain that is reported as unacceptable by the patient. Homebound Criteria 1- Patient has illness/injury: open wound, and needs/has: medical contraindication due to infected/draining/compl icated wound Homebound Criteria 2- Inability to leave the home and leaving the home requires a taxing and considerable effort due to: leaving home exacerbates symptoms pain and fatigue Patient has the following structural impairments: Structures related to movement Patient has the following functional impairments: Sensory functions and pain The patient's activity limitation affects the following: Mobility, Self-care and Domestic life Problem:SN SOC GENERAL ORDERS Goal:HC SN General Scheduled Tunneled/Non-Tunneled PICC (Order Only) Description: CVC care orders for PICC, tunneled and Non-tunneled catheters: Patient has a(n) Valved double lumen, PICC. Skilled Nurse or Patient to administer infusion as ordered. Skilled Nurse to instruct Patient on parenteral medication management, infusion therapy, administration of: vancomycin, infection control measures and signs and symptoms to report. Adverse Drug event kit required?no. (If yes, see medication list) ?? FLUSHING: Flush each dormant lumen with 10 ml Normal Saline daily and PRN to maintain patency. Flush with 10 ml Normal Saline before, and after medications. Flush with 10 ml Normal Saline before blood draws. Flush with 20 ml Normal Saline after blood draws. Final flush with 5 ml of 10 unit per ml heparin. ?? DRESSING: Change line dressing weekly and PRN if dressing integrity becomes compromised, or if moisture, drainage, or blood is present. Cleanse site with chloraPrep using aseptic technique. Apply antimicrobial patch PRN for signs of or risk for infection. Apply securement device or Steri-Strips for securement. Apply transparent film dressing over site. Use tape as needed to secure dressing. Change cap every week and PRN after blood return is obtained or blood collected, if unable to clear cap of blood or if cap becomes loose. Problem:CVC TUNNELED/NON TUNNELED/PICC Goal:HC CVC Tunneled/Non Tunneled/PICC Scheduled CVC Dressing Change Problem:HC CVC TUNNELED/NON-TUNNEL ED/PICC CARE Scheduled CVC Cap Change Problem:HC CVC TUNNELED/NON-TUNNEL ED/PICC CARE Scheduled CVC Medication Infusion Problem:HC CVC TUNNELED/NON-TUNNEL ED/PICC CARE Scheduled Wound Care NPWT Foam (Order Only) Description: Wound Number: 1 Location: Right lateral ankle. Wound Care Order to be performed by Skilled Nurse. Brand of NPWT being used: KCI Negative Pressure suction settings: 125 Continuous. To be performed 3 times per week and as needed if dressing is soiled, or comes off. Remove old dressing/packing. Cleanse with wound cleanser/normal saline/soap and water. Pack with/apply black foam. Cover with transparent film dressing. Use skin prep/moisture barrier to protect surrounding skin PRN. Use non-adherent contact layer as needed to protect wound bed. Use stoma paste/putty, and/or hydrocolloid dressings as needed to obtain seal. If negative pressure is lost, remove all dressing and packing. Pack with saline or wound gel moist gauze. Cover with dry gauze/ABD and tape. Change daily until negative pressure system can be re-applied. Instruct/Evaluate signs and symptoms of infection. Instruct/Perform wound care as ordered. Problem:WOUND CARE ORDERS(O) Goal:HC Wound Care Scheduled Fall (Order Only) Description: Shared intervention applicable to all disciplines with a visit frequency order. Instruct patient/caregiver on fall prevention measures. Problem:FALL PREVENTION (O) Goal:HC Fall Prevention Completed Is patient/caregiver following fall prevention recommendations as instructed? Yes Instruction provided to Patient Response verbalize understanding Care Summary Description: THIS IS NOT AN ORDER SOC reviewed with: Yanira Tineo Therapy Evaluation reviewed with: Frequency extension reviewed with: Change in discharge plan reviewed with: Troy reviewed with: SOC/EVAL CONTENT SUMMARY: Clinical findings: patient had originally stepped on a samantha nail in 2018 and developed osteomyelitis. He has had several different surgeries on the left ankle. The last surgery he had was a skin graft placed on the wound to the left ankle. The donor site is from the left upper thigh. Patient needs daily dressing changes to the left ankle. He is alert and oriented. He walks around with no assistive devices. His helps him with his adl's. Skilled Nurse Focus: wound care and education Physical Therapy to evaluate and treat for: refused Occupational Therapy to evaluate and treat for: refused Speech Therapy to evaluate and treat for: refused Social Work Focus: refused Colors Custodian to provide: refused Past Medical History: osteomyelitis left ankle Other contributing issues: none DISCIPLINES & FREQUENCIES: sn 1w4, eow5 FALL RISK SCORE: 5 OPC/HOSPICE NEED: n/a ACP DISCUSSION RECORD: has poa MEDICATION ISSUES: none BARRIERS TO CARE/SAFETY CONCERNS: none Date of Care Conference: Ongoing Care Conference Content: LUPA Alert/Threshold: Visit frequency per 30 day billing cycle: Would you be surprised if patient went to the ED or hospital? Alerts: Disease Management: Progress towards discharge: Attendees: CC Outcomes/Take-aways: Problem:HC CARE SUMMARY Goal:Care Summary Completed Care summary for Nursing. Summary of care SURINDER done today SMART goal wound to heal Plan for next visit wound assessment Plan of care updates completed and provided to patient/caregiver: Other, written in home care folder HH Medication Review/Education Problem:HC SN MEDICATION Completed Medication reconciliation performed. Needs/changes identified: none New major medication interactions or any symptomatic interactions identified: none Medication instructions provided for the following med(s): None at this visit Instruction provided to Patient Method of instruction verbal Response verbalize understanding General Nursing Plan of Care (Order Only) Description: Admission Certification: 64 y.o male admitted to Home Care Services for wound care and assessment. Estimation of how long skilled services will be required 59 days. Face to Face encounter occurred on --- with ---. Dr. Magdaleno contacted and agrees with plan of care. Clinical findings: patient had originally stepped on a samantha nail in 2018 and developed osteomyelitis. He has had several different surgeries on the left ankle. The last surgery he had was a skin graft placed on the wound to the left ankle. The donor site is from the left upper thigh. Patient needs daily dressing changes to the left ankle. He is alert and oriented. He walks around with no assistive devices. His helps him with his adl's. Skilled Nurse Focus: wound care and education Physical Therapy to evaluate and treat for: refused Occupational Therapy to evaluate and treat for: refused Speech Therapy to evaluate and treat for: refused Social Work Focus: refused Colors Custodian to provide: refused Past Medical History: osteomyelitis left ankle Other contributing issues: none Skilled Nurse to instruct patient/ caregiver on signs and symptoms to report, emergency measures, safety measures, diet, and activity. Instruct on medication regime, and patient management. Perform physical assessment including vital signs and pain assessment. Perform pulse oximetry PRN for intermittent assessment and/ or respiratory distress. Parameters to report to physician- Applicable to all disciplines involved in patient's plan of care. Systolic blood pressure greater than 160 or less than 90 at rest, diastolic blood pressure greater than 100 at rest, pulse greater than 110 at rest or less than 50, temperature greater than 101 degrees Fahrenheit, new or increased edema, pulse ox less than 90%, chronic pain that changes in character, pain that interferes with activity daily, or pain that is reported as unacceptable by the patient. Homebound Criteria 1- Patient has illness/injury: wound to left ankle , and needs/has: help of another person to leave home due to unsteady gait Homebound Criteria 2- Inability to leave the home and leaving the home requires a taxing and considerable effort due to: leaving home exacerbates symptoms pain Patient has the following structural impairments: Structures of the immunological system Patient has the following functional impairments: Sensory functions and pain The patient's activity limitation affects the following: Mobility and Self-care Problem:SN SOC GENERAL ORDERS Goal:HC SN General Scheduled Wound Care (Order Only) Description: Wound Number 1. Location left lateral ankle. Wound Care Order To be performed Daily, and as needed if dressing is soiled or comes off. To be performed by Skilled Nurse or caregiver. Remove Dressing. Cleanse wound with wound cleanser or normal saline. Apply hydrofera blue, soaked in saline, then xeroform on top of the hydrofera blue. Cover wound with mepilex Use skin prep/moisture barrier to protect surrounding skin PRN. Instruct/ Evaluate signs and symptoms of infection. Instruct/ Perform wound care as ordered. Instruct on signs and symptoms to report. Problem:WOUND CARE ORDERS(O) Goal:HC Wound Care Completed Wound # 1. Location: right lateral ankle Performed by Skilled Nurse. Wound Care Performed: Removed: dressing Cleansed with: wound cleanser. Covered with hydrofera blue and mepilex. PRN items used: none. Wound care performed by Caregiver on non-visit days when wound care is ordered. Wound Care (Order Only) Description: Wound Number 2. Location left upper thigh. Wound Care Order Leave skin graft donor site open to air. Instruct/ Evaluate signs and symptoms of infection. Instruct/ Perform wound care as ordered. Instruct on signs and symptoms to report. Problem:WOUND CARE ORDERS(O) Goal:HC Wound Care Scheduled SURINDER General (O) Problem:HC SN RESUMPTION OF CARE (SURINDER) Goal:HC SN Resumption of Care (SURINDER) Scheduled documented in this encounter Care Teams Electronics Engineering Technician Relationship Specialty Start Date End Date Provider, Lisa NOBLE PCP - General 11/27/19 documented as of this encounter
--- OUTSIDE RECORDS SUMMARY | 2024-11-23 00:10 | XMS_ITS | Continuity of Care Document ---
Author Organization [facility] Address [address] [address] Care Team Providers Care Information Technology Assistant Name Role Phone Carlos Enrique Obando Primary Care Physician Encounter Date(s): 05/31/24 - 05/31/24 [facility] [address] [place] [address]- Discharge Disposition: Discharged to Home or Self [...] Start Date: 04/22/23 10:25:00 AM CDT, Pharmacy: [facility], 173, cm, 04/09/23 15:48:00 CDT, Height/Length [...] Start Date: 03/09/23 10:48:00 AM CDT, Pharmacy: [facility], 173, cm, 03/09/23 10:20:00 CDT, Height/Length Measured, 89.5, kg, 03/09/23 10:22:00 CDT, Weight Dosing Start Date: 03/09/23 Stop Date: 08/27/23 Status: Completed amLODIPine 5 mg oral tablet 1 tab(s), Oral, Daily, # 90 tab(s), 3 Refill(s), Start Date: 08/27/23 8:41:00 AM CDT, Pharmacy: [facility], 173, cm, 04/09/23 15:48:00 CDT, [...] Start Date: 03/09/23 10:49:00 AM CDT, Pharmacy: [facility], 173, cm, 03/09/23 10:20:00 CDT, Height/Length Measured, 89.5, kg, 03/09/23 10:22:00 CDT,Weight Dosing Start Date: 03/09/23 Stop Date: 04/22/23 Status: Completed baclofen 10 mg oral tablet 1 tab(s), Oral, TID, # 30 tab(s), 1 Refill(s), Start Date: 04/22/23 11:37:00 AM CDT, [facility], cm, 04/09/23 15:48:00 CDT, Height/Length Measured, 87.6, kg, 04/09/23 15:50:00 CDT, Weight Dosing Start Date: 04/22/23 Stop Date: 03/31/24 Status: Completed baclofen 10 mg oral tablet 0 Refill(s), Start Date: 11/18/22 1:27:00 PM FEATURE WRITER Start Date: 11/18/22 Stop Date: 03/09/23 Status: Discontinued baclofen 10 mg oral tablet 1 tab(s), Oral, TID, PRN PRN for pain, 0 Refill(s), Start Date: 05/15/18 11:15:00 PM CDT Start Date: 05/15/18 Stop Date: 06/16/19 Status: Completed baclofen 10 mg tablet baclofen 10 mg tablet, 1 tab(s), Oral, TID, # 30 tab(s), 2 Refill(s), Pharmacy: [facility], 173, cm, 04/09/23 15:48:00 CDT, Height/Length Measured, 87.6, kg, 04/09/23 15:50:00 CDT, Weight Dosing Start Date: 06/08/23 Stop Date: 03/31/24 Status: Completed baclofen 10 mg tablet baclofen 10 mg tablet, 1 tab(s), Oral, TID, # 30 tab(s), 2 Refill(s), Pharmacy: [facility], 173, cm, 04/09/23 15:48:00 CDT, [...] 0 Refill(s), Start Date: 11/09/18 6:34:00 PM FEATURE WRITER, Pharmacy: [facility] Start Date: 11/09/18 Stop Date: 12/16/18 Status: Completed ciprofloxacin 750 mg oral tablet 1 tab(s), Oral, q12hr, 2h away from dairy, X 14 days, # 28 tab(s), 2 Refill(s), Start Date: :21:00 PM FEATURE WRITER, Pharmacy: [facility] Start Date: 09/19/18 Stop Date: 11/09/18 [...] 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 Start Date: 12/20/18 Stop Date: 09/30/22 Status: Completed finasteride 5 mg oral tablet 1 tab(s), Oral, Daily, # 30 tab(s), 0 Refill(s), Start Date: 03/31/24 10:43:00 AM CDT Start Date: 03/31/24 Status: Ordered fluticasone 50 mcg/inh nasal spray 2 spray(s), Nasal, BID, X 42 days, # 16 gm, 11 Refill(s), Start Date: 04/03/24 11:55:00 AM CDT, Pharmacy: [facility], 173, cm, 03/31/24 10:46:00 CDT, [...] Start Date: 04/19/24 10:19:00 AM CDT, Pharmacy: [facility] #[id number], 173, cm, 03/31/24 10:46:00 CDT, Height/Length Measured, 88.2, kg, 03/31/24 10:51:00 CDT, Weight Dosing Start Date: 04/19/24 Stop Date: 09/05/25 Status: Ordered ibuprofen 600 mg oral tablet 1 tab(s), Oral, QID, PRN PRN for pain, with food or milk, # 30 tab(s), 0 Refill(s), Start Date: 03/03/23 1:53:00 PM CDT, Pharmacy: [facility], 173, cm, 11/18/22 13:25:00 FEATURE WRITER, Height/Length Measured, 89.5, kg, 03/03/23 12:25:00 CDT, [...] Start Date: 03/31/24 11:26:00 AM CDT, Pharmacy: [facility], 173, cm, 03/31/24 10:46:00 CDT, Height/Length Measured, 88.2, kg, 03/31/24 10:51:00 CDT, Weight Dosing Start Date: 03/31/24 Stop Date: 04/11/24 Status: Completed levoFLOXacin 500 mg oral tablet 1 tab(s), Oral, Daily, For chronic recurrent sinusitis, X 10 days, # 10 tab(s), 0 Refill(s), Start Date: 04/11/24 3:29:00 PM CDT, Pharmacy: [facility], 173, cm, 03/31/24 10:46:00 CDT, Height/Length Measured, 88.2, kg, 03/31/24 10:51:00 CDT, Weight Dosing Start Date: 04/11/24 Stop Date: 04/19/24 Status: Completed levoFLOXacin 500 mg oral tablet 1 tab(s), Oral, Daily, For chronic recurrent sinusitis, # 10 tab(s), 0 Refill(s), Start Date: 04/19/24 10:19:00 AM CDT, Pharmacy: [facility] #[id number], 173, cm, 03/31/24 10:46:00 CDT, Height/Length Measured, 88.2, kg, 03/31/24 10:51:00 CDT, Weight Dosing Start Date: 04/19/24 Stop Date: 04/29/24 Status: Ordered linezolid 600 mg oral tablet 1 tab(s), Oral, q12hr, generic please, # 28 tab(s), 0 Refill(s), Start Date: 11/16/18 11:41:00 AM FEATURE WRITER, Pharmacy: [facility] Start Date: 11/16/18 Stop Date: 12/02/18 Status: Completed Medrol 4 mg oral tablet 1 packet(s), Oral, ONETIME, as directed on package labeling, # 21 tab(s), 0 Refill(s), Start Date: 11/18/22 1:39:00 PM FEATURE WRITER, Pharmacy: [facility], 173, cm, 11/18/22 13:25:00 FEATURE WRITER, Height/Length Measured, 86.3, kg, 11/18/22 13:27:00 FEATURE WRITER, Weight Dosing Start Date: 11/18/22 Stop Date: 03/09/23 Status: Completed metFORMIN 500 mg oral tablet 0.5 tab(s), Oral, BID, # 30 tab(s), 11 Refill(s), Start Date: 04/03/24 11:56:00 AM CDT, Pharmacy: [facility], 173, cm, 03/31/24 10:46:00 CDT, Height/Length Measured, 88.2, kg, 03/31/24 10:51:00 CDT, Weight Dosing Start Date: 04/03/24 Stop Date: 04/19/24 Status: Completed metFORMIN 500 mg oral tablet 0.5 tab(s), Oral, BID, # 30 tab(s), 11 Refill(s), Start Date: 04/19/24 10:19:00 AM CDT, Pharmacy: [facility] #[id number], 173, cm, 03/31/24 10:46:00 CDT, Height/Length Measured, 88.2, kg, 03/31/2410:51:00 CDT, Weight Dosing Start Date: 04/19/24 Status: Ordered MiraLax oral powder for reconstitution 17 gm, Oral, Daily, Dissolve in water before taking, # 255 gm, 0 Refill(s), Start Date: 05/21/18 10:05:00 AM CDT, Pharmacy: [id number] Start Date: 05/21/18 Stop Date: 03/31/24 Status: Completed MS Contin 15 mg oral tablet, extended release 2 tab(s), Oral, q12hr, # 28 tab(s), 0 Refill(s), Start Date: 05/21/18 10:04:00 AM CDT, Pharmacy: [id number] Start Date: 05/21/18 Stop Date: 09/09/18 Status: Completed MS Contin 30 mg oral tablet, extended release 1 tab(s), Oral, q12hr interval, 0 Refill(s), Start Date: 09/12/18 9:49:00 AM CDT Start Date: 09/12/18 Stop Date: 06/16/19 Status: Completed Multi-Day Plus Minerals oral tablet 1 tab(s), Oral, Daily, # 30 tab(s), 0 Refill(s), Start Date: 09/30/22 3:49:00 PM FEATURE WRITER Start Date: 09/30/22 Status: Ordered oxycodone-acetaminophen 10 mg-325 mg oral tablet 0 Refill(s), Start Date: 11/18/22 1:27:00 PM FEATURE WRITER Start Date: 11/18/22 Stop Date: 04/09/23 Status: [...] Start Date: 05/17/18 4:24:00 PM CDT, Pharmacy: [facility] [id number] Start Date: 05/17/18 Stop Date: 09/09/18 Status: Completed Percocet 5/325 oral tablet See Instructions, PRN PRN for pain, 1 tab(s) Oral q6hr not to exceed 4000 mg acetaminophen per day,# 60 tab(s), 0 Refill(s), Start Date: 09/14/18 9:23:00 AM CDT, Pharmacy: [facility] Start Date: 09/14/18 Stop Date: 06/16/19 Status: Completed pregabalin 75 mg oral capsule 1 cap(s), Oral, BID, 0 Refill(s), Start Date: 03/31/24 10:44:00 AM CDT Start Date: 03/31/24 Status: Ordered Senokot S 50 mg-8.6 mg oral tablet 1 tab(s), Oral, BID, X 10 days, # 20 tab(s), 0 Refill(s), Start Date: 05/21/18 10:05:00 AM CDT, Pharmacy: [id number] Start Date: 05/21/18 Stop Date: 05/31/18 Status: Completed tamsulosin 0.4 mg oral capsule 1 cap(s), Oral, Daily, # 90 cap(s), 3 Refill(s), Start Date: 12/20/18 1:38:00 PM FEATURE WRITER, Pharmacy: [facility] Start Date: 12/20/18 Stop Date: 09/30/22 Status: Completed tamsulosin 0.4 mg oral capsule 1 cap(s), Oral, Daily, 0 Refill(s), Start Date: 09/09/18 7:57:00 AM CDT Start Date: 09/09/18 Stop Date: 12/20/18 Status: Discontinued traMADol 50 mg oral tablet 1 tab(s), Oral, q4hr interval, PRN PRN as needed for pain, # 12 tab(s), 0 Refill(s), Start Date: 03/03/23 1:54:00 PM CDT, Pharmacy: [facility], 173, cm, 11/18/22 13:25:00 FEATURE WRITER, Height/Length Measured, 89.5, kg, 03/03/23 12:25:00 CDT, Weight Dosing Start Date: 03/03/23 Stop Date: 03/31/24 Status: Completed vancomycin 1 g intravenous injection IV, q12hr interval, prescribed by Dr Perdue, 0 Refill(s), Start Date: 10/21/18 8:45:00 AM FEATURE WRITER Start Date: 10/21/18 Stop Date: 11/16/18 Status: Completed Zinc 140 mg (as elemental zinc 50 mg) oral tablet 1 tab(s), Oral, Daily, # 90 tab(s), 0 Refill(s), Start Date: 09/30/22 3:48:00 PM FEATURE WRITER Start Date: 09/30/22 Status: Ordered Problem List [...] Elbow surgery from elbow to forearm 13left [id number] procedure 15left 16LT Rotator Cuff Repair 17right 18RT Tendon Repair 19right side 20RT Wrist Surgery- Frzn wrist- 2 screws Social History Social History Type Response Sex Male Patient Care team information Personnel Name: Carlos Enrique Obando MD Address: Address: [address] [place] [address]
--- OUTSIDE RECORDS SUMMARY | 2024-11-23 00:10 | XMS_ITS ---
Author Organization Unknown ALLERGIES AND ADVERSE REACTIONS No information ASSESSMENT No information CHIEF COMPLAINT No information MEDICATIONS No information OBJECTIVE DATA No information PHYSICAL EXAMINATION No information TREATMENT PLAN Planned Care Start Date Provider Encounter for Check-up [id number] [facility] ([facility]) PROBLEMS No information RESULTS No information REVIEW OF SYSTEMS No information SUBJECTIVE DATA No information VITAL SIGNS No information
--- OUTSIDE RECORDS SUMMARY | 2024-11-23 00:10 | XMS_ITS | Continuity of Care Document ---
Author Organization [facility] Address [address] [place] [address] Care Team Providers Care Academic Guidance Specialist Name Role Phone Carlos Enrique Obando Primary Care Physician [phone] Encounter Date(s): 08/30/24 - 08/30/24 [facility] [address] [place] [address]- [place] Discharge Disposition: Discharged to Home or Self Care Attending Physician: Say Sanches MD Admitting Physician: Say Sanches MD Allergies, Adverse Reactions, Alerts Substance Criticality Severity Reaction Reaction Severity Status gabapentin Headache Active Lyrica Lethargy Confusion Active predniSONE High criticality Moderate Unable to sleep Active Immunizations Given and Recorded Vaccine Date [...] Start Date: 04/22/23 10:25:00 AM CDT, Pharmacy: [facility], 173, [...] Start Date: 03/09/23 10:48:00 AM CDT, Pharmacy: [facility], 173, cm, 03/09/23 10:20:00 CDT, Height/Length Measured, 89.5, kg, 03/09/23 10:22:00 CDT, Weight Dosing Start Date: 03/09/23 Stop Date: 08/27/23 Status: Completed amLODIPine 5 mg oral tablet 1 tab(s), Oral, Daily, # 90 tab(s), 3 Refill(s), Start Date: 08/27/23 8:41:00 AM CDT, Pharmacy: [facility], 173, [...] Start Date: 07/26/24 3:47:00 PM CDT, Pharmacy: [facility] #[id number], 173, cm, 07/26/24 15:14:00 CDT, Height/Length Measured, [...] Start Date: 07/07/24 11:58:00 AM CDT, Pharmacy: [facility] #[id number], 173, cm, 07/07/24 9:24:00 CDT, Height/Length Measured, 88.2, kg, 07/07/24 9:25:00 CDT, Weight Dosing Start Date: 07/07/24 Status: Ordered baclofen 10 mg oral tablet 1 tab(s), Oral, TID, # 30 tab(s), 0 Refill(s), Start Date: 03/09/23 10:49:00 AM CDT, Pharmacy: [facility], 173, cm, 03/09/23 10:20:00 CDT, Height/Length Measured, 89.5, kg, 03/09/23 10:22:00 CDT,Weight Dosing Start Date: 03/09/23 Stop Date: 04/22/23 Status: Completed baclofen 10 mg oral tablet 1 tab(s), Oral, TID, # 30 tab(s), 1 Refill(s), Start Date: 04/22/23 11:37:00 AM CDT, Pharmacy: [facility], 173, cm, 04/09/23 15:48:00 CDT, Height/Length Measured, 87.6, kg, 04/09/23 15:50:00 CDT, Weight Dosing Start Date: 04/22/23 Stop Date: 03/31/24 Status: Completed baclofen 10 mg oral tablet 0 Refill(s), Start Date: 11/18/22 1:27:00 PM CAPTAIN/AIRLINE PILOT Start Date: 11/18/22 Stop Date: 03/09/23 Status: Discontinued baclofen 10 mg oral tablet 1 tab(s), Oral, TID, PRN PRN for pain, 0 Refill(s), Start Date: 05/15/18 11:15:00 PM CDT Start Date: 05/15/18 Stop Date: 06/16/19 Status: Completed baclofen 10 mg tablet baclofen 10 mg tablet, 1 tab(s), Oral, TID, # 30 tab(s), 2 Refill(s), Pharmacy: [facility], 173, cm, 04/09/23 15:48:00 CDT, Height/Length Measured, 87.6, kg, 04/09/23 15:50:00 CDT, Weight Dosing Start Date: 06/08/23 Stop Date: 03/31/24 Status: Completed baclofen 10 mg tablet baclofen 10 mg tablet, 1 tab(s), Oral, TID, # 30 tab(s), 2 Refill(s), Pharmacy: [facility], 173, cm, 04/09/23 15:48:00 CDT, Height/Length Measured, 87.6, kg, 04/09/23 15:50:00 CDT, Weight Dosing Start Date: 06/18/23 Stop Date: 03/31/24 Status: Completed carisoprodol 250 mg oral tablet 1 tab(s), Oral, BID, # 60 tab(s), 5 Refill(s), Start Date: 07/26/24 3:47:00 PM CDT, Pharmacy: [facility] #[id number], 173, cm, 07/26/24 15:14:00 CDT, Height/Length Measured, [...] 0 Refill(s), Start Date: 11/09/18 6:34:00 PM CAPTAIN/AIRLINE PILOT, Pharmacy: [facility] Start Date: 11/09/18 Stop Date: 12/16/18 Status: Completed ciprofloxacin 750 mg oral tablet 1 tab(s), Oral, q12hr, 2h away from dairy, X 14 days, # 28 tab(s), 2 Refill(s), Start Date: :21:00 PM CAPTAIN/AIRLINE PILOT, Pharmacy: [facility] Start Date: 09/19/18 Stop Date: 11/09/18 [...] 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, # 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, 0 Refill(s), 03/16/19 6:45:00 [...] 3 Refill(s), Start Date: 12/20/18 1:37:00 PM CAPTAIN/AIRLINE PILOT, Pharmacy: [facility] Start [...] Start Date: 04/03/24 11:55:00 AM CDT, Pharmacy: [facility], 173, cm, 03/31/24 10:46:00 CDT, Height/Length [...] Start Date: 04/19/24 10:19:00 AM CDT, Pharmacy: [facility] #[id number], 173, cm, 03/31/24 10:46:00 CDT, Height/Length Measured, 88.2, kg, 03/31/24 10:51:00 CDT, Weight Dosing Start Date: 04/19/24 Stop Date: 06/21/24 Status: Completed gabapentin 300 mg oral capsule 1 cap(s), Oral, TID, # 90 cap(s), 11 Refill(s), Start Date: 07/07/24 10:05:00 AM CDT, Pharmacy: [facility] #[id number], 173, cm, 07/07/24 9:24:00 CDT, Height/Length Measured, 88.2, kg, 07/07/24 9:25:00 CDT, Weight Dosing Start Date: 07/07/24 Stop Date: 07/11/24 Status: Discontinued hydrocodone-acetaminophen 5 mg-325 mg oral tablet See Instructions, 1/2 to 1 tab(s) Oral TID, # 60 tab(s), 0 Refill(s), Start Date: 07/11/24 2:53:00 PM CDT, Pharmacy: [facility] #[id number], 173, cm, 07/07/24 9:24:00 CDT, Height/Length Measured,88.2, kg, 07/07/24 9:25:00 CDT, Weight Dosing Start Date: 07/11/24 Stop Date: 07/26/24 Status: Discontinued ibuprofen 600 mg oral tablet 1 tab(s), Oral, QID, PRN PRN for pain, with food or milk, # 30 tab(s), 0 Refill(s), Start Date: 03/03/23 1:53:00 PM CDT, Pharmacy: [facility], 173, cm, 11/18/22 13:25:00 CAPTAIN/AIRLINE PILOT, Height/Length Measured, 89.5, kg, 03/03/23 12:25:00 CDT, [...] Start Date: 07/07/24 10:05:00 AM CDT, Pharmacy: [facility] #[id number], 173, cm, 07/07/24 9:24:00 CDT, Height/Length Measured, [...] Start Date: 03/31/24 11:26:00 AM CDT, Pharmacy: [facility], 173, cm, 03/31/24 10:46:00 CDT, Height/Length Measured, 88.2, kg, 03/31/24 10:51:00 CDT, Weight Dosing Start Date: 03/31/24 Stop Date: 04/11/24 Status: Completed levoFLOXacin 500 mg oral tablet 1 tab(s), Oral, Daily, For chronic recurrent sinusitis, X 10 days, # 10 tab(s), 0 Refill(s), Start Date: 04/11/24 3:29:00 PM CDT, Pharmacy: [facility], 173, cm, 03/31/24 10:46:00 CDT, Height/Length Measured, 88.2, kg, 03/31/24 10:51:00 CDT, Weight Dosing Start Date: 04/11/24 Stop Date: 04/19/24 Status: Completed levoFLOXacin 500 mg oral tablet 1 tab(s), Oral, Daily, For chronic recurrent sinusitis, # 10 tab(s), 0 Refill(s), Start Date: 04/19/24 10:19:00 AM CDT, Pharmacy: [facility] #[id number], 173, cm, 03/31/24 10:46:00 CDT, Height/Length Measured, 88.2, kg, 03/31/24 10:51:00 CDT, Weight Dosing Start Date: 04/19/24 Stop Date: 06/06/24 Status: Completed linezolid 600 mg oral tablet 1 tab(s), Oral, q12hr, generic please, # 28 tab(s), 0 Refill(s), Start Date: 11/16/18 11:41:00 AM CAPTAIN/AIRLINE PILOT, Pharmacy: [facility] Start Date: 11/16/18 Stop Date: 12/02/18 Status: Completed Medrol 4 mg oral tablet 1 packet(s), Oral, ONETIME, as directed on package labeling, # 21 tab(s), 0 Refill(s), Start Date: 11/18/22 1:39:00 PM CAPTAIN/AIRLINE PILOT, Pharmacy: [facility], 173, cm, 11/18/22 13:25:00 CAPTAIN/AIRLINE PILOT, Height/Length Measured, 86.3, kg, 11/18/22 13:27:00 CAPTAIN/AIRLINE PILOT, Weight Dosing Start Date: 11/18/22 Stop Date: 03/09/23 Status: Completed metFORMIN 500 mg oral tablet 0.5 tab(s), Oral, BID, # 30 tab(s), 11 Refill(s), Start Date: 04/03/24 11:56:00 AM CDT, Pharmacy: [facility], 173, cm, 03/31/24 10:46:00 CDT, Height/Length Measured, 88.2, kg, 03/31/24 10:51:00 CDT, Weight Dosing Start Date: 04/03/24 Stop Date: 04/19/24 Status: Completed metFORMIN 500 mg oral tablet 0.5 tab(s), Oral, BID, # 30 tab(s), 11 Refill(s), Start Date: 04/19/24 10:19:00 AM CDT, Pharmacy: [facility] #[id number], 173, cm, 03/31/24 10:46:00 CDT, Height/Length Measured, 88.2, kg, 03/31/2410:51:00 CDT, Weight Dosing Start Date: 04/19/24 Stop Date: 06/21/24 Status: Completed metFORMIN 500 mg oral tablet 1 tab(s), Oral, BID, # 180 tab(s), 3 Refill(s), Start Date: 07/07/24 11:58:00 AM CDT, Pharmacy: [facility] #[id number], 173, cm, 07/07/24 9:24:00 CDT, Height/Length Measured, 88.2, kg, 07/07/24 9:25:00 CDT, Weight Dosing Start Date: 07/07/24 Status: Ordered MiraLax oral powder for reconstitution 17 gm, Oral, Daily, Dissolve in water before taking, # 255 gm, 0 Refill(s), Start Date: 05/21/18 10:05:00 AM CDT, Pharmacy: [email or web address] [id number] Start Date: 05/21/18 Stop Date: 03/31/24 Status: Completed MS Contin 15 mg oral tablet, extended release 2 tab(s), Oral, q12hr, # 28 tab(s), 0 Refill(s), Start Date: 05/21/18 10:04:00 AM CDT, Pharmacy: [email or web address] [id number] Start Date: 05/21/18 Stop Date: 09/09/18 Status: Completed MS Contin 30 mg oral tablet, extended release 1 tab(s), Oral, q12hr interval, 0 Refill(s), Start Date: 09/12/18 9:49:00 AM CDT Start Date: 09/12/18 Stop Date: 06/16/19 Status: Completed Multi-Day Plus Minerals oral tablet 1 tab(s), Oral, Daily, # 30 tab(s), 0 Refill(s), Start Date: 09/30/22 3:49:00 PM CAPTAIN/AIRLINE PILOT Start Date: 09/30/22 Stop Date: 06/21/24 Status: Completed Narcan 4 mg/0.1 mL nasal spray 1 spray(s), Nasal, ONETIME, # 2 EA, 11 Refill(s), Start Date: 07/07/24 10:15:00 AM CDT, Pharmacy: [facility] #[id number], 173, cm, 07/07/24 9:24:00 CDT, Height/Length Measured, 88.2, kg, :25:00 CDT, Weight Dosing Start Date: 07/07/24 Stop Date: 07/26/24 Status: Discontinued Narcan 4 mg/0.1 mL nasal spray 1 spray(s), Nasal, ONETIME, # 2 EA, 0 Refill(s), Start Date: 08/25/24 3:51:00 PM CDT, Pharmacy: [id number], 173, cm, 07/26/24 15:14:00 CDT, Height/Length Measured, 88, kg, 08/17/24 7:54:00 CDT, Weight Dosing Start Date: 08/25/24 Status: Ordered oxycodone-acetaminophen 10 mg-325 mg oral tablet 0 Refill(s), Start Date: 11/18/22 1:27:00 PM CAPTAIN/AIRLINE PILOT Start Date: 11/18/22 Stop Date: 04/09/23 Status: [...] Start Date: 07/07/24 10:05:00 AM CDT, Pharmacy: [email or web address] #[id number], 173, cm, 07/07/24 9:24:00 CDT, Height/Length Measured, 88.2, kg, 07/07/24 9:25:00 CDT, Weight Dosing Start Date: 07/07/24 Stop Date: 07/11/24 Status: Discontinued oxycodone-acetaminophen 5 mg-325 mg oral tablet 1 tab(s), Oral, TID, PRN PRN pain severe 8-10, # 90 tab(s), 0 Refill(s), Start Date: 08/25/24 10:49:00 AM CDT, Pharmacy: [id number], 173, cm, 07/26/24 [...] Start Date: 05/17/18 4:24:00 PM CDT, [id number] Start Date: 05/17/18 Stop Date: 09/09/18 Status: Completed Percocet 5/325 oral tablet See Instructions, PRN PRN for pain, 1 tab(s) Oral q6hr not to exceed 4000 mg acetaminophen per day,# 60 tab(s), 0 Refill(s), Start Date: 09/14/18 9:23:00 AM CDT, Pharmacy: [facility] Start Date: 09/14/18 Stop Date: 06/16/19 Status: Completed predniSONE 10 mg oral tablet 3 tab(s), Oral, BID, For inflammation and pain, # 84 tab(s), 0 Refill(s), Start Date: 08/10/24 9:14:00 AM CDT, Pharmacy: [id number], 173, cm, 07/26/24 15:14:00 CDT, Height/Length Measured, 88, kg, 07/26/24 15:24:00 CDT, Weight Dosing Start Date: 08/10/24 Stop Date: 08/25/24 Status: Discontinued predniSONE 10 mg oral tablet 3 tab(s), Oral, BID, For inflammation and pain, # 84 tab(s), 0 Refill(s), Start Date: 07/26/24 3:47:00 PM CDT, Pharmacy: [email or web address] #[id number], 173, cm, 07/26/24 15:14:00 CDT, Height/Length Measured, [...] Start Date: 05/21/18 10:05:00 AM CDT, Pharmacy: [email or web address] [id number] Start Date: 05/21/18 Stop Date: 05/31/18 Status: Completed tamsulosin 0.4 mg oral capsule 1 cap(s), Oral, Daily, # 90 cap(s), 3 Refill(s), Start Date: 12/20/18 1:38:00 PM CAPTAIN/AIRLINE PILOT, Pharmacy: [facility] Start [...] Start Date: 03/03/23 1:54:00 PM CDT, Pharmacy: [facility], 173, cm, 11/18/22 13:25:00 CAPTAIN/AIRLINE PILOT, Height/Length Measured, 89.5, kg, 03/03/23 12:25:00 CDT, Weight Dosing Start Date: 03/03/23 Stop Date: 03/31/24 Status: Completed vancomycin 1 g intravenous injection IV, q12hr interval, prescribed by Dr Perdue, 0 Refill(s), Start Date: 10/21/18 8:45:00 AM CAPTAIN/AIRLINE PILOT Start Date: 10/21/18 Stop Date: 11/16/18 Status: Completed Zinc 140 mg (as elemental zinc 50 mg) oral tablet 1 tab(s), Oral, Daily, # 90 tab(s), 0 Refill(s), Start Date: 09/30/22 3:48:00 PM CAPTAIN/AIRLINE PILOT Start Date: 09/30/22 Stop Date: 06/21/24 Status: [...] Elbow surgery from elbow to forearm 14left 75A6-T1 procedure 16left 17LT Rotator Cuff Repair 18right 19RT Tendon Repair 20right side 21RT Wrist Surgery- Frzn wrist- 2 screws Social History Social History Type Response Sex Male Patient Care team information Personnel Name: Carlos Enrique Obando MD Address: Address: [address] [address]- [place]
--- OUTSIDE RECORDS SUMMARY | 2024-11-23 00:10 | XMS_ITS | Continuity of Care Document ---
Author Organization [facility] Address [address] [facility] [address] [place] [address] Care Team Providers Care Music Cataloguer Name Role Phone Carlos Enrique Obando Primary Care Physician Encounter Date(s): 08/02/24 - 08/02/24 Family Medicine [facility] [address] [place] [address]- Discharge Disposition: Discharged to Home or Self [...] Start Date: 07/26/24 3:47:00 PM CDT, Pharmacy: [facility] #[id number], 173, cm, 07/26/24 15:14:00 CDT, Height/Length Measured, [...] Start Date: 07/07/24 11:58:00 AM CDT, Pharmacy: [facility] #[id number], 173, cm, 07/07/24 9:24:00 CDT, Height/Length Measured, 88.2, kg, 07/07/24 9:25:00 CDT, Weight Dosing Start Date: 07/07/24 Status: Ordered baclofen 10 mg oral tablet 1 tab(s), Oral, TID, # 30 tab(s), 0 Refill(s), Start Date: 03/09/23 10:49:00 AM CDT, [facility], 173, cm, 03/09/23 10:20:00 CDT, Height/Length Measured, 89.5, kg, 03/09/23 10:22:00 CDT,Weight Dosing Start Date: 03/09/23 Stop Date: 04/22/23 Status: Completed baclofen 10 mg oral tablet 1 tab(s), Oral, TID, # 30 tab(s), 1 Refill(s), Start Date: 04/22/23 11:37:00 AM CDT, Pharmacy: [facility], 173, cm, 04/09/23 15:48:00 CDT, Height/Length Measured, 87.6, kg, 04/09/23 15:50:00 CDT, Weight Dosing Start Date: 04/22/23 Stop Date: 03/31/24 Status: Completed baclofen 10 mg oral tablet 0 Refill(s), Start Date: 11/18/22 1:27:00 PM MOLD BURNER Start Date: 11/18/22 Stop Date: 03/09/23 Status: [...] TID, # 30 tab(s), 2 Refill(s), Pharmacy: [facility], 173, cm, 04/09/23 15:48:00 CDT, Height/Length Measured, 87.6, kg, 04/09/23 15:50:00 CDT, Weight Dosing Start Date: 06/18/23 Stop Date: 03/31/24 Status: Completed carisoprodol 250 mg oral tablet 1 tab(s), Oral, BID, # 60 tab(s), 5 Refill(s), Start Date: 07/26/24 3:47:00 PM CDT, Pharmacy: [facility] #[id number], 173, cm, 07/26/24 15:14:00 CDT, Height/Length Measured, [...] 0 Refill(s), Start Date: 11/09/18 6:34:00 PM MOLD BURNER, Pharmacy: [facility] Start Date: 11/09/18 Stop Date: 12/16/18 Status: Completed ciprofloxacin 750 mg oral tablet 1 tab(s), Oral, q12hr, 2h away from dairy, X 14 days, # 28 tab(s), 2 Refill(s), Start Date: :21:00 PM MOLD BURNER, Pharmacy: [facility] Start Date: 09/19/18 Stop Date: 11/09/18 [...] 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 daily 3 months 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 [...] Start Date: 04/19/24 10:19:00 AM CDT, [facility][id number], 173, cm, 03/31/24 10:46:00 CDT, Height/Length Measured, 88.2, kg, 03/31/24 10:51:00 CDT, Weight Dosing Start Date: 04/19/24 Stop Date: 06/21/24 Status: Completed gabapentin 300 mg oral capsule 1 cap(s), Oral, TID, # 90 cap(s), 11 Refill(s), Start Date: 07/07/24 10:05:00 AM CDT, Pharmacy: [facility] #[id number], 173, cm, 07/07/24 9:24:00 CDT, Height/Length Measured, 88.2, kg, 07/07/24 9:25:00 CDT, Weight Dosing Start Date: 07/07/24 Stop Date: 07/11/24 Status: Discontinued hydrocodone-acetaminophen 5 mg-325 mg oral tablet See Instructions, /2 to 1 tab(s) Oral TID, # 60 tab(s), 0 Refill(s), Start Date: 07/11/24 2:53:00 PM CDT, Pharmacy: [facility] #[id number], 173, cm, 07/07/24 9:24:00 CDT, Height/Length Measured,88.2, kg, 07/07/24 9:25:00 CDT, Weight Dosing Start Date: 07/11/24 Stop Date: 07/26/24 Status: Discontinued ibuprofen 600 mg oral tablet 1 tab(s), Oral, QID, PRN PRN for pain, with food or milk, # 30 tab(s), 0 Refill(s), Start Date: 03/03/23 1:53:00 PM CDT, Pharmacy: [facility], 173, cm, 11/18/22 13:25:00 MOLD BURNER, Height/Length Measured, 89.5, kg, 03/03/23 12:25:00 CDT, [...] Start Date: 07/07/24 10:05:00 AM CDT, Pharmacy: [facility] #[id number], 173, cm, 07/07/24 9:24:00 CDT, Height/Length Measured, [...] Start Date: 03/31/24 11:26:00 AM CDT, Pharmacy: [facility], 173, cm, 03/31/24 10:46:00 CDT, [...] Start Date: 04/19/24 10:19:00 AM CDT, Pharmacy: [facility] #[id number], 173, cm, 03/31/24 10:46:00 CDT, Height/Length Measured, 88.2, kg, 03/31/24 10:51:00 CDT, Weight Dosing Start Date: 04/19/24 Stop Date: 06/06/24 Status: Completed linezolid 600 mg oral tablet 1 tab(s), Oral, q12hr, generic please, # 28 tab(s), 0 Refill(s), Start Date: 11/16/18 11:41:00 AM MOLD BURNER, Pharmacy: [facility] Start Date: 11/16/18 Stop Date: 12/02/18 Status: Completed Medrol 4 mg oral tablet 1 packet(s), Oral, ONETIME, as directed on package labeling, # 21 tab(s), 0 Refill(s), Start Date: 11/18/22 1:39:00 PM MOLD BURNER, Pharmacy: [facility], 173, cm, 11/18/22 13:25:00 MOLD BURNER, Height/Length Measured, 86.3, kg, 11/18/22 13:27:00 MOLD BURNER, Weight Dosing Start Date: 11/18/22 Stop Date: [...] Start Date: 04/19/24 10:19:00 AM CDT, [id number], 173, cm, 03/31/24 10:46:00 CDT, Height/Length Measured, 88.2, kg, 03/31/2410:51:00 CDT, Weight Dosing Start Date: 04/19/24 Stop Date: 06/21/24 Status: Completed metFORMIN 500 mg oral tablet 1 tab(s), Oral, BID, # 180 tab(s), 3 Refill(s), Start Date: 07/07/24 11:58:00 AM CDT, Pharmacy: [facility] #[id number], 173, cm, 07/07/24 9:24:00 CDT, Height/Length Measured, 88.2, kg, 07/07/24 9:25:00 CDT, Weight Dosing Start Date: 07/07/24 Status: Ordered MiraLax oral powder for reconstitution 17 gm, Oral, Daily, Dissolve in water before taking, # 255 gm, 0 Refill(s), Start Date: 05/21/18 10:05:00 AM CDT, Pharmacy: [id number] Start Date: 05/21/18 Stop Date: 03/31/24 Status: Completed MS Contin 15 mg oral tablet, extended release 2 tab(s), Oral, q12hr, # 28 tab(s), 0 Refill(s), Start Date: 05/21/18 10:04:00 AM CDT, Pharmacy: [facility] [id number] Start Date: 05/21/18 Stop Date: 09/09/18 Status: Completed MS Contin 30 mg oral tablet, extended release 1 tab(s), Oral, q12hr interval, 0 Refill(s), Start Date: 09/12/18 9:49:00 AM CDT Start Date: 09/12/18 Stop Date: 06/16/19 Status: Completed Multi-Day Plus Minerals oral tablet 1 tab(s), Oral, Daily, # 30 tab(s), 0 Refill(s), Start Date: 09/30/22 3:49:00 PM MOLD BURNER Start Date: 09/30/22 Stop Date: 06/21/24 Status: Completed Narcan 4 mg/0.1 mL nasal spray 1 spray(s), Nasal, ONETIME, # 2 EA, 11 Refill(s), Start Date: 07/07/24 10:15:00 AM CDT, Pharmacy: [facility] #[id number], 173, cm, 07/07/24 9:24:00 CDT, Height/Length Measured, 88.2, kg, 249:25:00 CDT, Weight Dosing Start Date: 07/07/24 Stop Date: 07/26/24 Status: Discontinued oxycodone-acetaminophen 10 mg-325 mg oral tablet 0 Refill(s), Start Date: 11/18/22 1:27:00 PM MOLD BURNER Start Date: 11/18/22 Stop Date: 04/09/23 Status: [...] Start Date: 07/07/24 10:05:00 AM CDT, Pharmacy: [facility] #[id number], 173, cm, 07/07/24 9:24:00 CDT, Height/Length Measured, [...] Start Date: 05/17/18 4:24:00 PM CDT, Pharmacy: [facility] [id number] Start Date: 05/17/18 Stop Date: 09/09/18 Status: Completed Percocet 5/325 oral tablet See Instructions, PRN PRN for pain, 1 tab(s) Oral q6hr not to exceed 4000 mg acetaminophen per day,# 60 tab(s), 0 Refill(s), Start Date: 09/14/18 9:23:00 AM CDT, Pharmacy: [facility] Start Date: 09/14/18 Stop Date: 06/16/19 Status: Completed predniSONE 10 mg oral tablet 3 tab(s), Oral, BID, For inflammation and pain, # 84 tab(s), 0 Refill(s), Start Date: 07/26/24 3:47:00 PM CDT, Pharmacy: [facility] #[id number], 173, cm, 07/26/24 15:14:00 CDT, Height/Length Measured, [...] Start Date: 05/21/18 10:05:00 AM CDT, Pharmacy: [facility] [id number] Start Date: 05/21/18 Stop Date: 05/31/18 Status: Completed tamsulosin 0.4 mg oral capsule 1 cap(s), Oral, Daily, # 90 cap(s), 3 Refill(s), Start Date: 12/20/18 1:38:00 PM MOLD BURNER, Pharmacy: [facility] [...] CDT, Pharmacy: [facility], 173, cm, 11/18/22 13:25:00 MOLD BURNER, Height/Length Measured, 89.5, kg, 03/03/23 12:25:00 CDT, Weight Dosing Start Date: 03/03/23 Stop Date: 03/31/24 Status: Completed vancomycin 1 g intravenous injection IV, q12hr interval, prescribed by Dr Perdue, 0 Refill(s), Start Date: 10/21/18 8:45:00 AM MOLD BURNER Start Date: 10/21/18 Stop Date: 11/16/18 Status: Completed Zinc 140 mg (as elemental zinc 50 mg) oral tablet 1 tab(s), Oral, Daily, # 90 tab(s), 0 Refill(s), Start Date: 09/30/22 3:48:00 PM MOLD BURNER Start Date: 09/30/22 Stop Date: 06/21/24 Status: [...] Elbow surgery from elbow to forearm 14left [id number] procedure 16left 17LT Rotator Cuff Repair 18right 19RT Tendon Repair 20right side 21RT Wrist Surgery- Frzn wrist- 2 screws Social History Social History Type Response Sex Male Patient Care team information Personnel Name: Carlos Enrique Obando MD Address: Address: [address] [address]- [place]
--- OUTSIDE RECORDS SUMMARY | 2024-11-23 00:10 | XMS_ITS | Summary of Care ---
Author Organization Internal Medicine [facility] Address [address] [facility] [address] [place] [address] Care Team Providers Care Salvage Grinder Name Role Phone Lucretia Carvalho Primary Care Physician [phone] Encounter Date(s): 10/11/23 - 10/11/23 Internal Medicine [facility] [address] [place] [address]- [place] Discharge Disposition: Discharged to [...] Refill(s), Start Date: 03/09/23 10:50:00 CDT, Pharmacy: [facility], 173, cm, 03/09/23 10:20:00 CDT, Height/Length Measured, 89.5, kg, 03/09/23 10:22:00 CDT, Weight Dosing Start Date: 03/09/23 Stop Date: 04/22/23 Status: Completed amitriptyline 75 mg oral tablet 1 tab(s), Oral, HS, # 90 tab(s), 2 Refill(s), Start Date: 04/22/23 10:25:00 CDT, Pharmacy: [facility], 173, cm, 04/09/23 15:48:00 [...] Refill(s), Start Date: 03/09/23 10:48:00 CDT, Pharmacy: [facility], 173, cm, 03/09/23 10:20:00 CDT, Height/Length Measured, 89.5, kg, 03/09/23 10:22:00 CDT,Weight Dosing Start Date: 03/09/23 Stop Date: 08/27/23 Status: Completed amLODIPine 5 mg oral tablet 1 tab(s), Oral, Daily, # 90 tab(s), 3 Refill(s), Start Date: 08/27/23 8:41:00 CDT, Pharmacy: [facility], 173, cm, 04/09/23 15:48:00 CDT, [...] Refill(s), Start Date: 03/09/23 10:49:00 CDT, Pharmacy: [facility], 173, cm, 03/09/23 10:20:00 CDT, Height/Length Measured, 89.5, kg, 03/09/23 10:22:00 CDT, Weight Dosing Start Date: 03/09/23 Stop Date: 04/22/23 Status: Completed baclofen 10 mg oral tablet 1 tab(s), Oral, TID, # 30 tab(s), 1 Refill(s), Start Date: 04/22/23 11:37:00 CDT, Pharmacy: [facility], 173, cm, 04/09/23 15:48:00 CDT, Height/Length Measured, 87.6, kg, 04/09/23 15:50:00 CDT, Weight Dosing Start Date: 04/22/23 Status: Ordered baclofen 10 mg oral tablet 0 Refill(s), Start Date: 11/18/22 13:27:00 PROOF CLERK Start Date: 11/18/22 Stop Date: 03/09/23 Status: [...] tab(s), 0 Refill(s), Start Date: 11/09/18 18:34:00 PROOF CLERK, Pharmacy: [facility] Start Date: 11/09/18 Stop Date: 12/16/18 Status: Completed ciprofloxacin 750 mg oral tablet 1 tab(s), Oral, q12hr, 2h away from dairy, X 14 days, # 28 tab(s), 2 Refill(s), Start Date: 09/19/18 14:21:00 PROOF CLERK, Pharmacy: [facility] Start Date: 09/19/18 Stop Date: 11/09/18 [...] 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 daily 3 months 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 CLOCK 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, # 1 boxes, 0 Refill(s), 03/16/19 18:45:00 [...] tab(s), 3 Refill(s), Start Date: 12/20/18 13:37:00 PROOF CLERK, Pharmacy: [facility] Start Date: 12/20/18 Stop Date: 09/30/22 Status: Completed ibuprofen 600 mg oral tablet 1 tab(s), Oral, QID, PRN PRN for pain, with food or milk, # 30 tab(s), 0 Refill(s), Start Date: 03/03/23 13:53:00 CDT, Pharmacy: [facility], 173, cm, 11/18/22 13:25:00 PROOF CLERK, Height/Length Measured, 89.5, kg, 03/03/23 12:25:00 CDT, [...] tab(s), 0 Refill(s), Start Date: 11/16/18 11:41:00 PROOF CLERK,Pharmacy: [facility] Start Date: 11/16/18 Stop Date: 12/02/18 Status: Completed Medrol 4 mg oral tablet 1 packet(s), Oral, ONETIME, as directed on package labeling, # 21 tab(s), 0 Refill(s), Start Date: 11/18/22 13:39:00 PROOF CLERK, Pharmacy: [facility], 173, cm, 11/18/22 13:25:00 PROOF CLERK, Height/Length Measured, 86.3, kg, 11/18/22 13:27:00 PROOF CLERK, Weight Dosing Start Date: 11/18/22 Stop Date: 03/09/23 Status: Completed MiraLax oral powder for reconstitution 17 gm, Oral, Daily, Dissolve in water before taking, # 255 gm, 0 Refill(s), Start Date: 05/21/18 10:05:00 CDT, Pharmacy: [facility] [id number] Start Date: 05/21/18 Status: Ordered MS Contin 15 mg oral tablet, extended release 2 tab(s), Oral, q12hr, # 28 tab(s), 0 Refill(s), Start Date: 05/21/18 10:04:00 CDT, Pharmacy: [facility] [id number] Start Date: 05/21/18 Stop Date: 09/09/18 Status: Completed MS Contin 30 mg oral tablet, extended release 1 tab(s), Oral, q12hr interval, 0 Refill(s), Start Date: 09/12/18 9:49:00 CDT Start Date: 09/12/18 Stop Date: 06/16/19 Status: Completed Multi-Day Plus Minerals oral tablet 1 tab(s), Oral, Daily, # 30 tab(s), 0 Refill(s), Start Date: 09/30/22 15:49:00 PROOF CLERK Start Date: 09/30/22 Status: Ordered oxycodone-acetaminophen 10 mg-325 mg oral tablet 0 Refill(s), Start Date: 11/18/22 13:27:00 PROOF CLERK Start Date: 11/18/22 Stop Date: 04/09/23 Status: [...] 0Refill(s), Start Date: 05/17/18 16:24:00 CDT, Pharmacy: [facility] [id number] Start Date: 05/17/18 Stop Date: 09/09/18 Status: Completed Percocet 5/325 oral tablet See Instructions, PRN PRN for pain, 1 tab(s) Oral q6hr not to exceed 4000 mg acetaminophen per day,# 60 tab(s), 0 Refill(s), Start Date: 09/14/18 9:23:00 CDT, Pharmacy: [facility] Start Date: 09/14/18 Stop Date: 06/16/19 Status: Completed Senokot S 50 mg-8.6 mg oral tablet 1 tab(s), Oral, BID, X 10 days, # 20 tab(s), 0 Refill(s), Start Date: 05/21/18 10:05:00 CDT, Pharmacy: [facility] [id number] Start Date: 05/21/18 Stop Date: 05/31/18 Status: Completed tamsulosin 0.4 mg oral capsule 1 cap(s), Oral, Daily, # 90 cap(s), 3 Refill(s), Start Date: 12/20/18 13:38:00 PROOF CLERK, Pharmacy: [facility] Start Date: 12/20/18 Stop Date: 09/30/22 Status: Completed tamsulosin 0.4 mg oral capsule 1 cap(s), Oral, Daily, 0 Refill(s), Start Date: 09/09/18 7:57:00 CDT Start Date: 09/09/18 Stop Date: 12/20/18 Status: Discontinued traMADol 50 mg oral tablet 1 tab(s), Oral, q4hr interval, PRN PRN as needed for pain, # 12 tab(s), 0 Refill(s), Start Date: 03/03/23 13:54:00 CDT, Pharmacy: [facility], 173, cm, 11/18/22 13:25:00 PROOF CLERK, Height/Length Measured, 89.5, kg, 03/03/23 12:25:00 CDT, Weight Dosing Start Date: 03/03/23 Status: Ordered vancomycin 1 g intravenous injection IV, q12hr interval, prescribed by Dr Perdue, 0 Refill(s), Start Date: 10/21/18 8:45:00 PROOF CLERK Start Date: 10/21/18 Stop Date: 11/16/18 Status: Completed Zinc 140 mg (as elemental zinc 50 mg) oral tablet 1 tab(s), Oral, Daily, # 90 tab(s), 0 Refill(s), Start Date: 09/30/22 15:48:00 PROOF CLERK Start Date: 09/30/22 Status: Ordered Immunizations Given [...]
--- OUTSIDE RECORDS SUMMARY | 2024-11-23 00:10 | XMS_ITS | Encounter Summary ---
Author Organization [facility] Address [address] [place] [address] Phone Care Team Providers Care Electrical Technician Name Role Phone Provider, None Primary Care Provider Unavailabl e Reason for Visit * Auth/Cert Specialty Diagnoses / Procedures Referred By Celine almaguer Referred To Contact Referral ID Status Reason Start Date Expiration Date Visits Re quested Visits Authorized [id number] 1 1 Encounter Details Date Type Department Care Team ([facility] st Contact Info) Description [facility] [address] [place] [address] Pushpa Vela V, RN [place] SN - OASIS DISCHARGE Discharge Disposition: Discharged to home or Selfcare Social History Tobacco Use Types Packs/Day Years Used Date Smoking Tobacco: Never Assessed Sex and Gender Information Value Date Recorded Sex Assigned at Not on file 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 Gender Identity Not on file Sexual Orientation Not on file documented as of this encounter Plan of Treatment Not on file documented as of this encounter Visit Diagnoses Not on filedocumented in this encounter Home Health Visit - Care Plan Visit Details Visit Type -SN - OASIS DISCH ARGE Discipline -Halfway Problems Problem Description Start Date Status Goals Interve ntions FALL PREVENTION (O) Disciplines: Halfway, Physical Therapy, Occupational Therapy, Speech Language Pathology, Roll Or Tape Edge Machine Operator, Medical Social Work 12/16/2019 Active 1 goal linked to scheduled/docume nted intervention 1 goal intervention scheduled/documen lobito in this visit HC CARE SUMMARY Disciplines: Halfway, Physical Therapy, Occupational Therapy, Speech Language Pathology, Medical Social Work, Licensed Practical Nurse, Respiratory Therapy Care Summary 12/16/2019 Active 1 goal linked to scheduled/docume nted intervention 1 goal intervention scheduled/documen lobito in this visit HC SN MEDICATION Disciplines: Halfway SN Medication 12/16/2019 Active - 1 problem intervention scheduled/documen lobito in this visit WOUND CARE ORDERS(O) Disciplines: Halfway Wound Care Orders 12/16/2019 Active 1 goal linked to scheduled/docume nted intervention 1 goal intervention scheduled/documen lobito in this visit WOUND CARE ORDERS(O) Disciplines: Halfway Wound Care Orders 12/16/2019 Active 1 goal linked to scheduled/docume nted intervention 1 goal intervention scheduled/documen lobito in this visit HC SN RESUMPTION OF CARE (SURINDER) Disciplines: Halfway SN Resumption of Care 12/16/2019 Active 1 goal linked to scheduled/docume [...] multidisciplinary communication. HC CARE SUMMARY No HC Wound Care Description: 1.Patient/ caregiver [...] No HC SN Resumption of Care (SURINDER) Description: After assessing the patient and discussing the patient's goals the following were identified: 1. Patient/ caregiver will demonstrate effective self-care management including understanding of ordered medication regimen, signs and symptoms to support, and recommended follow up with physician. 2. Patient will verbalize understanding of medication regimen including name, actions, reason for use, evaluation of effectiveness, side effects, and administration instructions. Target date: by discharge. 3. 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 Target date: by discharge. HC SN RESUMPTION OF CARE (SURINDER) No [...] treat for: refused Social Work Focus: refused Roll Or Tape Edge Machine Operator to provide: refused Past Medical History: osteomyelitis [...] HH Medication Review/Education Problem:HC SN MEDICATION Scheduled Wound Care (Order Only) Description: Wound Number 1. Location right lateral ankle. Wound Care Order To be [...] Problem:WOUND CARE ORDERS(O) Goal:HC Wound Care Scheduled Wound Care (Order Only) Description: Wound Number 2. Location right upper thigh. Wound Care Order Leave skin graft donor site open to air. Instruct/ Evaluate signs and symptoms of infection. Instruct/ Perform wound care as ordered. Instruct on signs and symptoms to report. Problem:WOUND CARE ORDERS(O) Goal:HC Wound Care Scheduled SURINDER General (O) Description: 64 y.o male admitted to [facility] for bone infection from 11/11 to 11/14 Resumption of Home Care Services for wound care and assessment Dr. Magdaleno contacted and agrees with plan of care. Clinical findings: patient was admitted to [facility] for a wound infection, He had a skin graft put on his right ankle wound. patient had originally stepped on a samantha nail back in 2018 and has problems with infection and the wound not healing since. He walks around independently but needs assistance with his adl's. He is alert and oriented Updated Diagnoses: s/p skin graft to right ankle wound Skilled Nurse Focus: wound care and assessment Therapy Focus: refused Social Work Focus: refused Roll Or Tape Edge Machine Operator Focus: refused Past Medical History: refused Other contributing issues: none Homebound Criteria 1- Patient has illness/injury: osteomyelitis , and needs/has: help of another person to leave home due to weakness Homebound Criteria 2- Inability to leave the home and leaving the home requires a taxing and considerable effort due to: leaving home exacerbates symptoms pain and fatigue Patient has the following structural impairments: Structures related to movement Patient has the following functional impairments: Functions of the hematological and immunological system The patient's activity limitation affects the following: Mobility and Self-care Requires DME and supplies: wound supplies Medications amitriptyline (ELAVIL) 75 MG Tablet Take 75 mg by mouth nightly. ascorbic acid (ASCORBIC ACID) 500 MG Tablet Take 500 mg by mouth 2 times daily. 11/29/2019 aspirin 325 MG Tablet Take 325 mg by mouth 2 times daily. Calcium Carbonate-Vitamin D (CALCIUM 500 + D PO) Take 1 Tab by mouth 3 times daily. Multiple Vitamin (MULTIVITAMINS PO) Take 1 Tab by mouth daily. 11/29/2019 oxyCODONE-Acetaminophen (PERCOCET) 10-325 MG Tablet Take 1 Tab by mouth every 6 hours as needed for Moderate or more severe pain. polyethylene glycol (GLYCOLAX) Powder Take 17 g by mouth daily as needed for Constipation. Mix with 4-8oz of liquid. tamsulosin (FLOMAX) 0.4 MG Capsule Take 0.4 mg by mouth daily. . . Skilled Nurse to instruct patient/ caregiver on [...] that is reported as unacceptable by the patient.. Patient agrees with plan of care. Problem:HC SN RESUMPTION OF CARE (SURINDER) Goal:HC SN Resumption of Care (SURINDER) Scheduled documented in this encounter Care Teams Electrical Technician Relationship Specialty Start Date End Date Provider, None REAL PCP - General 11/27/19 documented as of this encounter
--- OUTSIDE RECORDS SUMMARY | 2024-11-23 00:10 | XMS_ITS | Continuity of Care Document ---
Author Organization [facility] Address [address] [place] [address] Care Team Providers Care Registered Nurse Maternal Child Name Role Phone Carlos Enrique Obando Primary Care Physician [phone] Encounter Date(s): 05/30/24 - 05/30/24 [facility] [address] [place] [address]- us Discharge Disposition: Discharged to Home or [...] Start Date: 04/22/23 10:25:00 AM CDT, Pharmacy: [facility], 173, cm, 04/09/23 15:48:00 [...] Start Date: 03/09/23 10:48:00 AM CDT, Pharmacy: [facility], 173, cm, 03/09/23 10:20:00 CDT, Height/Length Measured, 89.5, kg, 03/09/23 10:22:00 CDT, Weight Dosing Start Date: 03/09/23 Stop Date: 08/27/23 Status: Completed amLODIPine 5 mg oral tablet 1 tab(s), Oral, Daily, # 90 tab(s), 3 Refill(s), Start Date: 08/27/23 8:41:00 AM CDT, Pharmacy: [facility], 173, cm, 04/09/23 15:48:00 CDT, [...] Start Date: 03/09/23 10:49:00 AM CDT, Pharmacy: [facility], 173, cm, 03/09/23 10:20:00 CDT, Height/Length Measured, 89.5, kg, 03/09/23 10:22:00 CDT,Weight Dosing Start Date: 03/09/23 Stop Date: 04/22/23 Status: Completed baclofen 10 mg oral tablet 1 tab(s), Oral, TID, # 30 tab(s), 1 Refill(s), Start Date: 04/22/23 11:37:00 AM CDT, Pharmacy: [facility], 173, cm, 04/09/23 15:48:00 CDT, Height/Length Measured, 87.6, kg, 04/09/23 15:50:00 CDT, Weight Dosing Start Date: 04/22/23 Stop Date: 03/31/24 Status: Completed baclofen 10 mg oral tablet 0 Refill(s), Start Date: 11/18/22 1:27:00 PM PATTERN CH[employer]ER Start Date: 11/18/22 Stop Date: 03/09/23 Status: Discontinued baclofen 10 mg oral tablet 1 tab(s), Oral, TID, PRN PRN for pain, 0 Refill(s), Start Date: 05/15/18 11:15:00 PM CDT Start Date: 05/15/18 Stop Date: 06/16/19 Status: Completed baclofen 10 mg tablet baclofen 10 mg tablet, 1 tab(s), Oral, TID, # 30 tab(s), 2 Refill(s), Pharmacy: [facility], 173, cm, 04/09/23 15:48:00 CDT, Height/Length Measured, 87.6, kg, 04/09/23 15:50:00 CDT, Weight Dosing Start Date: 06/08/23 Stop Date: 03/31/24 Status: Completed baclofen 10 mg tablet baclofen 10 mg tablet, 1 tab(s), Oral, TID, # 30 tab(s), 2 Refill(s), Pharmacy: [facility], 173, cm, 04/09/23 15:48:00 CDT, [...] 0 Refill(s), Start Date: 11/09/18 6:34:00 PM PATTERN CH[employer]ER, Pharmacy: [facility] Start Date: 11/09/18 Stop Date: 12/16/18 Status: Completed ciprofloxacin 750 mg oral tablet 1 tab(s), Oral, q12hr, 2h away from dairy, X 14 days, # 28 tab(s), 2 Refill(s), Start Date: :21:00 PM PATTERN CHANGER, Pharmacy: [facility] Start Date: 09/19/18 Stop Date: 11/09/18 [...] moderate daily 3 months 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, # 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, 0 Refill(s), 03/16/19 6:45:00 [...] 3 Refill(s), Start Date: 12/20/18 1:37:00 PM [employer]TERN [employer]ER, Pharmacy: [facility] Start Date: 12/20/18 Stop Date: 09/30/22 Status: Completed finasteride 5 mg oral tablet 1 tab(s), Oral, Daily, # 30 tab(s), 0 Refill(s), Start Date: 03/31/24 10:43:00 AM CDT Start Date: 03/31/24 Status: Ordered fluticasone 50 mcg/inh nasal spray 2 spray(s), Nasal, BID, X 42 days, # 16 gm, 11 Refill(s), Start Date: 04/03/24 11:55:00 AM CDT, Pharmacy: [facility], 173, cm, 03/31/24 10:46:00 CDT, [...] Start Date: 04/19/24 10:19:00 AM CDT, Pharmacy: [facility] #[id number], 173, cm, 03/31/24 10:46:00 CDT, Height/Length Measured, 88.2, kg, 03/31/24 10:51:00 CDT, Weight Dosing Start Date: 04/19/24 Stop Date: 09/05/25 Status: Ordered ibuprofen 600 mg oral tablet 1 tab(s), Oral, QID, PRN PRN for pain, with food or milk, # 30 tab(s), 0 Refill(s), Start Date: 03/03/23 1:53:00 PM CDT, [facility], 173, cm, 11/18/22 13:25:00 PATTERN CHANGER, Height/Length Measured, 89.5, kg, 03/03/23 12:25:00 CDT, [...] Start Date: 03/31/24 11:26:00 AM CDT, Pharmacy: [email or web address], 173, cm, 03/31/24 10:46:00 CDT, Height/Length Measured, 88.2, kg, 03/31/24 10:51:00 CDT, Weight Dosing Start Date: 03/31/24 Stop Date: 04/11/24 Status: Completed levoFLOXacin 500 mg oral tablet 1 tab(s), Oral, Daily, For chronic recurrent sinusitis, X 10 days, # 10 tab(s), 0 Refill(s), Start Date: 04/11/24 3:29:00 PM CDT, Pharmacy: [facility], 173, cm, 03/31/24 10:46:00 CDT, Height/Length Measured, 88.2, kg, 03/31/24 10:51:00 CDT, Weight Dosing Start Date: 04/11/24 Stop Date: 04/19/24 Status: Completed levoFLOXacin 500 mg oral tablet 1 tab(s), Oral, Daily, For chronic recurrent sinusitis, # 10 tab(s), 0 Refill(s), Start Date: 04/19/24 10:19:00 AM CDT, Pharmacy: [facility] #[id number], 173, cm, 03/31/24 10:46:00 CDT, Height/Length Measured, 88.2, kg, 03/31/24 10:51:00 CDT, Weight Dosing Start Date: 04/19/24 Stop Date: 04/29/24 Status: Ordered linezolid 600 mg oral tablet 1 tab(s), Oral, q12hr, generic please, # 28 tab(s), 0 Refill(s), Start Date: 11/16/18 11:41:00 AM PATTERN CHANGER, Pharmacy: [facility] Start Date: 11/16/18 Stop Date: 12/02/18 Status: Completed Medrol 4 mg oral tablet 1 packet(s), Oral, ONETIME, as directed on package labeling, # 21 tab(s), 0 Refill(s), Start Date: 11/18/22 1:39:00 PM PATTERN CHANGER, Pharmacy: [facility], 173, cm, 11/18/22 13:25:00 PATTERN CHANGER, Height/Length Measured, 86.3, kg, 11/18/22 13:27:00 PATTERN CHANGER, Weight Dosing Start Date: 11/18/22 Stop Date: 03/09/23 Status: Completed metFORMIN 500 mg oral tablet 0.5 tab(s), Oral, BID, # 30 tab(s), 11 Refill(s), Start Date: 04/03/24 11:56:00 AM CDT, Pharmacy: [facility], 173, cm, 03/31/24 10:46:00 CDT, Height/Length Measured, 88.2, kg, 03/31/24 10:51:00 CDT, Weight Dosing Start Date: 04/03/24 Stop Date: 04/19/24 Status: Completed metFORMIN 500 mg oral tablet 0.5 tab(s), Oral, BID, # 30 tab(s), 11 Refill(s), Start Date: 04/19/24 10:19:00 AM CDT, Pharmacy: [facility] #[id number], 173, cm, 03/31/24 10:46:00 CDT, Height/Length Measured, 88.2, kg, 03/31/2410:51:00 CDT, Weight Dosing Start Date: 04/19/24 Status: Ordered MiraLax oral powder for reconstitution 17 gm, Oral, Daily, Dissolve in water before taking, # 255 gm, 0 Refill(s), Start Date: 05/21/18 10:05:00 AM CDT, Pharmacy: [id number] Start Date: 05/21/18 Stop Date: 03/31/24 Status: Completed MS Contin 15 mg oral tablet, extended release 2 tab(s), Oral, q12hr, # 28 tab(s), 0 Refill(s), Start Date: 05/21/18 10:04:00 AM CDT, Pharmacy: [id number] Start Date: 05/21/18 Stop Date: 09/09/18 Status: Completed MS Contin 30 mg oral tablet, extended release 1 tab(s), Oral, q12hr interval, 0 Refill(s), Start Date: 09/12/18 9:49:00 AM CDT Start Date: 09/12/18 Stop Date: 06/16/19 Status: Completed Multi-Day Plus Minerals oral tablet 1 tab(s), Oral, Daily, # 30 tab(s), 0 Refill(s), Start Date: 09/30/22 3:49:00 PM [employer]TERN CH[employer]ER Start Date: 09/30/22 Status: Ordered oxycodone-acetaminophen 10 mg-325 mg oral tablet 0 Refill(s), Start Date: 11/18/22 1:27:00 PM PATTERN CHANGER Start Date: 11/18/22 Stop Date: 04/09/23 Status: [...] Start Date: 05/17/18 4:24:00 PM CDT, Pharmacy: [id number] Start Date: 05/17/18 Stop Date: 09/09/18 Status: Completed Percocet 5/325 oral tablet See Instructions, PRN PRN for pain, 1 tab(s) Oral q6hr not to exceed 4000 mg acetaminophen per day,# 60 tab(s), 0 Refill(s), Start Date: 09/14/18 9:23:00 AM CDT, Pharmacy: [facility] Start Date: 09/14/18 Stop Date: 06/16/19 Status: Completed pregabalin 75 mg oral capsule 1 cap(s), Oral, BID, 0 Refill(s), Start Date: 03/31/24 10:44:00 AM CDT Start Date: 03/31/24 Status: Ordered Senokot S 50 mg-8.6 mg oral tablet 1 tab(s), Oral, BID, X 10 days, # 20 tab(s), 0 Refill(s), Start Date: 05/21/18 10:05:00 AM CDT, Pharmacy: [id number] Start Date: 05/21/18 Stop Date: 05/31/18 Status: Completed tamsulosin 0.4 mg oral capsule 1 cap(s), Oral, Daily, # 90 cap(s), 3 Refill(s), Start Date: 12/20/18 1:38:00 PM PATTERN CHANGER, Pharmacy: [facility] Start Date: 12/20/18 Stop Date: 09/30/22 Status: Completed tamsulosin 0.4 mg oral capsule 1 cap(s), Oral, Daily, 0 Refill(s), Start Date: 09/09/18 7:57:00 AM CDT Start Date: 09/09/18 Stop Date: 12/20/18 Status: Discontinued traMADol 50 mg oral tablet 1 tab(s), Oral, q4hr interval, PRN PRN as needed for pain, # 12 tab(s), 0 Refill(s), Start Date: 03/03/23 1:54:00 PM CDT, Pharmacy: [facility], 173, cm, 11/18/22 13:25:00 PATTERN CHANGER, Height/Length Measured, 89.5, kg, 03/03/23 12:25:00 CDT, Weight Dosing Start Date: 03/03/23 Stop Date: 03/31/24 Status: Completed vancomycin 1 g intravenous injection IV, q12hr interval, prescribed by Dr Perdue, 0 Refill(s), Start Date: 10/21/18 8:45:00 AM PATTERN CHANGER Start Date: 10/21/18 Stop Date: 11/16/18 Status: Completed Zinc 140 mg (as elemental zinc 50 mg) oral tablet 1 tab(s), Oral, Daily, # 90 tab(s), 0 Refill(s), Start Date: 09/30/22 3:48:00 PM PATTERN CHANGER Start Date: 09/30/22 Status: Ordered Problem List [...] Elbow surgery from elbow to forearm 13left 13N2-Z5 procedure 15left 16LT Rotator Cuff Repair 17right 18RT Tendon Repair 19right side 20RT Wrist Surgery- Frzn wrist- 2 screws Social History Social History Type Response Sex Male Patient Care team information Personnel Name: Carlos Enrique Obando MD Address: Address: [address] [place] [address]
--- OUTSIDE RECORDS SUMMARY | 2024-11-23 00:10 | XMS_ITS | Continuity of Care Document ---
Author Organization [facility] Address [address] [facility] [address] [place] [address] Care Team Providers Care Shopping Centre Manager Name Role Phone Carlos Enrique Obando Primary Care Physician [phone] Encounter Date(s): 03/31/24 - 03/31/24 Family Medicine [facility] [address] [place] [address]- Encounter Diagnosis Benign essential HTN(Discharge Diagnosis) - 03/31/24 ULLOA (nonalcoholic steatohepatitis)(Discharge Diagnosis) - 03/31/24 Prediabetes(Discharge Diagnosis) - 03/31/24 Vertigo(Discharge Diagnosis) - 03/31/24 Chronic low back pain(Discharge Diagnosis) - 03/31/24 Bilateral leg pain(Discharge Diagnosis) - 03/31/24 Bilateral shoulder pain(Discharge Diagnosis) - 03/31/24 Chronic pain syndrome(Discharge Diagnosis) - 03/31/24 Right elbow pain(Discharge Diagnosis) - 03/31/24 PTSD (post-traumatic stress disorder)(Discharge Diagnosis) - 03/31/24 Hyperlipidemia, unspecified(Discharge Diagnosis) - 03/31/24 History of TIAs(Discharge Diagnosis) - 03/31/24 Chronic sinusitis(Discharge Diagnosis) - 03/31/24 Pulsatile tinnitus(Discharge Diagnosis) - 03/31/24 Eustachian tube dysfunction(Discharge Diagnosis) - 03/31/24 Discharge Disposition: 01 Discharged to Home or [...] Start Date: 03/09/23 10:50:00 AM CDT, Pharmacy: [facility], 173, cm, 03/09/23 10:20:00 CDT, [...] Date: 08/27/23 8:41:00 AM CDT, Pharmacy: [facility], 173, [...] Date: 03/09/23 10:49:00 AM CDT, Pharmacy: [facility], 173, cm, 03/09/23 10:20:00 CDT, Height/Length Measured, 89.5, kg, 03/09/23 10:22:00 CDT,Weight Dosing Start Date: 03/09/23 Stop Date: 04/22/23 Status: Completed baclofen 10 mg oral tablet 1 tab(s), Oral, TID, # 30 tab(s), 1 Refill(s), Start Date: 04/22/23 11:37:00 AM CDT, Pharmacy: [facility], 173, cm, 04/09/23 15:48:00 CDT, Height/Length Measured, 87.6, kg, 04/09/23 15:50:00 CDT, Weight Dosing Start Date: 04/22/23 Stop Date: 03/31/24 Status: Completed baclofen 10 mg oral tablet 0 Refill(s), Start Date: 11/18/22 1:27:00 PM [employer] Start Date: 11/18/22 Stop Date: 03/09/23 Status: [...] 0 Refill(s), Start Date: 11/09/18 6:34:00 PM [employer], Pharmacy: [facility] Start Date: 11/09/18 Stop Date: 12/16/18 Status: Completed ciprofloxacin 750 mg oral tablet 1 tab(s), Oral, q12hr, 2h away from dairy, X 14 days, # 28 tab(s), 2 Refill(s), Start Date: :21:00 PM [employer], Pharmacy: [facility] Start Date: 09/19/18 Stop Date: 11/09/18 [...] 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 daily 3 months 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, # 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, 0 Refill(s), 03/16/19 [...] 3 Refill(s), Start Date: 12/20/18 1:37:00 PM [employer], Pharmacy: [facility] Start Date: 12/20/18 Stop Date: 09/30/22 Status: Completed finasteride 5 mg oral tablet 1 tab(s), Oral, Daily, # 30 tab(s), 0 Refill(s), Start Date: 03/31/24 10:43:00 AM CDT Start Date: 03/31/24 Status: Ordered ibuprofen 600 mg oral tablet 1 tab(s), Oral, QID, PRN PRN for pain, with food or milk, # 30 tab(s), 0 Refill(s), Start Date: 03/03/23 1:53:00 PM CDT, Pharmacy: [facility], 173, cm, 11/18/22 13:25:00 [employer], Height/Length Measured, 89.5, kg, 03/03/23 12:25:00 CDT, [...] Start Date: 03/31/24 11:26:00 AM CDT, Pharmacy: [facility], 173, cm, 03/31/24 10:46:00 CDT, Height/Length Measured, 88.2, kg, 03/31/24 10:51:00 CDT, Weight Dosing Start Date: 03/31/24 Stop Date: 04/10/24 Status: Ordered linezolid 600 mg oral tablet 1 tab(s), Oral, q12hr, generic please, # 28 tab(s), 0 Refill(s), Start Date: 11/16/18 11:41:00 AM [employer]ES, Pharmacy: [facility] Start Date: 11/16/18 Stop Date: 12/02/18 Status: Completed Medrol 4 mg oral tablet 1 packet(s), Oral, ONETIME, as directed on package labeling, # 21 tab(s), 0 Refill(s), Start Date: 11/18/22 1:39:00 PM [employer], Pharmacy: [facility], 173, cm, 11/18/22 13:25:00 [employer], Height/Length Measured, 86.3, kg, 11/18/22 13:27:00 [employer], Weight Dosing Start Date: 11/18/22 Stop Date: 03/09/23 Status: Completed MiraLax oral powder for reconstitution 17 gm, Oral, Daily, Dissolve in water before taking, # 255 gm, 0 Refill(s), Start Date: 05/21/18 10:05:00 AM CDT, Pharmacy: [id number] Start Date: 05/21/18 Stop Date: 03/31/24 Status: Completed MS Contin 15 mg oral tablet, extended release 2 tab(s), Oral, q12hr, # 28 tab(s), 0 Refill(s), Start Date: 05/21/18 10:04:00 AM CDT, Pharmacy: [id number] Start Date: 05/21/18 Stop Date: 09/09/18 Status: Completed MS Contin 30 mg oral tablet, extended release 1 tab(s), Oral, q12hr interval, 0 Refill(s), Start Date: 09/12/18 9:49:00 AM CDT Start Date: 09/12/18 Stop Date: 06/16/19 Status: Completed Multi-Day Plus Minerals oral tablet 1 tab(s), Oral, Daily, # 30 tab(s), 0 Refill(s), Start Date: 09/30/22 3:49:00 PM [employer] Start Date: 09/30/22 Status: Ordered oxycodone-acetaminophen 10 mg-325 mg oral tablet 0 Refill(s), Start Date: 11/18/22 1:27:00 PM [employer] Start Date: 11/18/22 Stop Date: 04/09/23 Status: [...] Start Date: 05/17/18 4:24:00 PM CDT, Pharmacy: [id number] Start Date: 05/17/18 Stop Date: 09/09/18 Status: Completed Percocet 5/325 oral tablet See Instructions, PRN PRN for pain, 1 tab(s) Oral q6hr not to exceed 4000 mg acetaminophen per day,# 60 tab(s), 0 Refill(s), Start Date: 09/14/18 9:23:00 AM CDT, Pharmacy: [facility] Start Date: 09/14/18 Stop Date: 06/16/19 Status: Completed pregabalin 75 mg oral capsule 1 cap(s), Oral, BID, 0 Refill(s), Start Date: 03/31/24 10:44:00 AM CDT Start Date: 03/31/24 Status: Ordered Senokot S 50 mg-8.6 mg oral tablet 1 tab(s), Oral, BID, X 10 days, # 20 tab(s), 0 Refill(s), Start Date: 05/21/18 10:05:00 AM CDT, Pharmacy: [id number] Start Date: 05/21/18 Stop Date: 05/31/18 Status: Completed tamsulosin 0.4 mg oral capsule 1 cap(s), Oral, Daily, # 90 cap(s), 3 Refill(s), Start Date: 12/20/18 1:38:00 PM [facility], Pharmacy: [facility] Start Date: 12/20/18 Stop Date: 09/30/22 Status: Completed tamsulosin 0.4 mg oral capsule 1 cap(s), Oral, Daily, 0 Refill(s), Start Date: 09/09/18 7:57:00 AM CDT Start Date: 09/09/18 Stop Date: 12/20/18 Status: Discontinued traMADol 50 mg oral tablet 1 tab(s), Oral, q4hr interval, PRN PRN as needed for pain, # 12 tab(s), 0 Refill(s), Start Date: 03/03/23 1:54:00 PM CDT, Pharmacy: [facility], 173, cm, 11/18/22 13:25:00 [employer], Height/Length Measured, 89.5, kg, 03/03/23 12:25:00 CDT, Weight Dosing Start Date: 03/03/23 Stop Date: 03/31/24 Status: Completed vancomycin 1 g intravenous injection IV, q12hr interval, prescribed by Dr Perdue, 0 Refill(s), Start Date: 10/21/18 8:45:00 AM [employer] Start Date: 10/21/18 Stop Date: 11/16/18 Status: Completed Zinc 140 mg (as elemental zinc 50 mg) oral tablet 1 tab(s), Oral, Daily, # 90 tab(s), 0 Refill(s), Start Date: 09/30/22 3:48:00 PM [employer] Start Date: 09/30/22 Status: Ordered Problem List Condition Confirmation Course Effective Dates Status Health St atus Informant Benign essential HTN Confirmed Active Chronic [...] pain Confirmed Active Pulsatile tinnitus Confirmed Active Vertigo Confirmed Active Procedures Procedure Date Related Diagnosis Body Site Status ROUTINE VENIPUNCTURE 03/31/24 Comp leted ROUTINE VENIPUNCTURE 03/31/24 Comp leted Application Wound Vac (Right , [...] left elbow 10left 11left 12right 13right side Results Most recent to oldest [Reference Range]: 1 Weight Measured 88.2 kg (03/31/24 10:46 AM) Height/Length Measured 173 cm (03/31/24 10:46 AM) Body Mass Index Measured 29.47 kg/m2 (03/31/24 10:46 AM) Systolic Blood Pressure [90-120 mmHg] 12 2 mmHg *HI* (03/31/24 10:46 AM) Diastolic Blood Pressure [60-80 mmHg] 86 mmHg *HI* (03/31/24 10:46 AM) Respiratory Rate [14-20 br/min] 16 br/mi n (03/31/24 10:46 AM) Vital Signs Most recent to oldest [Reference Range]: 1 Peripheral Pulse Rate [60-100 bpm] 79 bp m (03/31/24 10:46 AM) Respiratory Rate [14-20 br/min] 16 br/mi n (03/31/24 10:46 AM) Blood Pressure [90-120/60-80 mmHg] 122/8 6mmHg *HI* (03/31/24 10:46 AM) SpO2 [95 %] 97 % (03/31/24 10:46 AM) Mean Arterial Pressure, Cuff [70-110 mmH g] 98 mmHg (03/31/24 10:46 AM) Height/Length Measured 173 cm (03/31/24 10:46 AM) Weight Dosing 88.20 kg 1 (03/31/24 10:51 AM) Weight Measured 88.2 kg (03/31/24 10:46 AM) BSA Measured 2.02 m2 (03/31/24 10:46 AM) Body Mass Index Measured 29.47 kg/m2 (03/31/24 10:46 AM) 1Result Comment: This result was because the dosing weight was either not entered or it is >30 days old. This result is based off: Weight Measured March 31, 2024 10:46:00 CDT by Gin Cordero Social History Social History Type Response Sex Male Patient Care team information Personnel Name: Carlos Enrique Obando MD Address: Address: [address] [place] [address]
--- OUTSIDE RECORDS SUMMARY | 2024-11-23 00:10 | XMS_ITS | Continuity of Care Document ---
Author Organization [facility] Address [address] [address] Care Team Providers Care Mail Handler Sorter Name Role Phone Carlos Enrique Obando Primary Care Physician Encounter Date(s): 05/31/24 - 05/[facility] [address] [place] [address]- Discharge Disposition: Discharged to Home or Self [...] Start Date: 04/22/23 10:25:00 AM CDT, Pharmacy: [facility], 173, cm, 04/09/23 [...] Start Date: 03/09/23 10:48:00 AM CDT, Pharmacy: [facility], 173, cm, 03/09/23 10:20:00 CDT, Height/Length Measured, 89.5, kg, 03/09/23 10:22:00 CDT, Weight Dosing Start Date: 03/09/23 Stop Date: 08/27/23 Status: Completed amLODIPine 5 mg oral tablet 1 tab(s), Oral, Daily, # 90 tab(s), 3 Refill(s), Start Date: 08/27/23 8:41:00 AM CDT, Pharmacy: [facility], 173, cm, 04/09/23 [...] Start Date: 03/09/23 10:49:00 AM CDT, Pharmacy: [facility], 173, cm, 03/09/23 10:20:00 CDT, Height/Length Measured, 89.5, kg, 03/09/23 10:22:00 CDT,Weight Dosing Start Date: 03/09/23 Stop Date: 04/22/23 Status: Completed baclofen 10 mg oral tablet 1 tab(s), Oral, TID, # 30 tab(s), 1 Refill(s), Start Date: 04/22/23 11:37:00 AM CDT, [facility], [facility], 04/09/23 15:48:00 CDT, Height/Length Measured, 87.6, kg, 04/09/23 15:50:00 CDT, Weight Dosing Start Date: 04/22/23 Stop Date: 03/31/24 Status: Completed baclofen 10 mg oral tablet 0 Refill(s), Start Date: 11/18/22 1:27:00 PM MAINTENANCE MECHANIC MILLWRIGHT Start Date: 11/18/22 Stop Date: 03/09/23 Status: Discontinued baclofen 10 mg oral tablet 1 tab(s), Oral, TID, PRN PRN for pain, 0 Refill(s), Start Date: 05/15/18 11:15:00 PM CDT Start Date: 05/15/18 Stop Date: 06/16/19 Status: Completed baclofen 10 mg tablet baclofen 10 mg tablet, 1 tab(s), Oral, TID, # 30 tab(s), 2 Refill(s), Pharmacy: [facility], 173, cm, 04/09/23 15:48:00 CDT, Height/Length Measured, 87.6, kg, 04/09/23 15:50:00 CDT, Weight Dosing Start Date: 06/08/23 Stop Date: 03/31/24 Status: Completed baclofen 10 mg tablet baclofen 10 mg tablet, 1 tab(s), Oral, TID, # 30 tab(s), 2 Refill(s), Pharmacy: 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, 173, cm, 03/31/24 10:46:00 CDT, [...] Start Date: 04/19/24 10:19:00 AM CDT, Pharmacy: [facility] #[id number], 173, cm, 03/31/24 10:46:00 CDT, Height/Length Measured, 88.2, kg, 03/31/24 10:51:00 CDT, Weight Dosing Start Date: 04/19/24 Stop Date: 09/05/25 Status: Ordered ibuprofen 600 mg oral tablet 1 tab(s), Oral, QID, PRN PRN for pain, with food or milk, # 30 tab(s), 0 Refill(s), Start Date: 03/03/23 1:53:00 PM CDT, Pharmacy: [facility], 173, cm, 11/18/22 13:25:00 MAINTENANCE MECHANIC MILLWRIGHT, Height/Length Measured, 89.5, kg, 03/03/23 12:25:00 CDT, [...] Start Date: 03/31/24 11:26:00 AM CDT, Pharmacy: [facility], 173, cm, 03/31/24 10:46:00 CDT, Height/Length Measured, 88.2, kg, 03/31/24 10:51:00 CDT, Weight Dosing Start Date: 03/31/24 Stop Date: 04/11/24 Status: Completed levoFLOXacin 500 mg oral tablet 1 tab(s), Oral, Daily, For chronic recurrent sinusitis, X 10 days, # 10 tab(s), 0 Refill(s), Start Date: 04/11/24 3:29:00 PM CDT, Pharmacy: [facility], 173, cm, 03/31/24 10:46:00 CDT, Height/Length Measured, 88.2, kg, 03/31/24 10:51:00 CDT, Weight Dosing Start Date: 04/11/24 Stop Date: 04/19/24 Status: Completed levoFLOXacin 500 mg oral tablet 1 tab(s), Oral, Daily, For chronic recurrent sinusitis, # 10 tab(s), 0 Refill(s), Start Date: 04/19/24 10:19:00 AM CDT, Pharmacy: [facility] #[id number], 173, cm, 03/31/24 10:46:00 CDT, Height/Length Measured, 88.2, kg, 03/31/24 10:51:00 CDT, Weight Dosing Start Date: 04/19/24 Stop Date: 04/29/24 Status: Ordered linezolid 600 mg oral tablet 1 tab(s), Oral, q12hr, generic please, # 28 tab(s), 0 Refill(s), Start Date: 11/16/18 11:41:00 AM MAINTENANCE MECHANIC MILLWRIGHT, Pharmacy: [facility] Start Date: 11/16/18 Stop Date: 12/02/18 Status: Completed Medrol 4 mg oral tablet 1 packet(s), Oral, ONETIME, as directed on package labeling, # 21 tab(s), 0 Refill(s), Start Date: 11/18/22 1:39:00 PM MAINTENANCE MECHANIC MILLWRIGHT, Pharmacy: [facility], 173, cm, 11/18/22 13:25:00 MAINTENANCE MECHANIC MILLWRIGHT, Height/Length Measured, 86.3, kg, 11/18/22 13:27:00 MAINTENANCE MECHANIC MILLWRIGHT, Weight Dosing Start Date: 11/18/22 Stop Date: 03/09/23 Status: Completed metFORMIN 500 mg oral tablet 0.5 tab(s), Oral, BID, # 30 tab(s), 11 Refill(s), Start Date: 04/03/24 11:56:00 AM CDT, Pharmacy: [facility], 173, cm, 03/31/24 10:46:00 CDT, Height/Length Measured, 88.2, kg, 03/31/24 10:51:00 CDT, Weight Dosing Start Date: 04/03/24 Stop Date: 04/19/24 Status: Completed metFORMIN 500 mg oral tablet 0.5 tab(s), Oral, BID, # 30 tab(s), 11 Refill(s), Start Date: 04/19/24 10:19:00 AM CDT, Pharmacy: [facility] #[id number], 173, cm, 03/31/24 10:46:00 CDT, Height/Length Measured, 88.2, kg, 03/31/2410:51:00 CDT, Weight Dosing Start Date: 04/19/24 Status: Ordered MiraLax oral powder for reconstitution 17 gm, Oral, Daily, Dissolve in water before taking, # 255 gm, 0 Refill(s), Start Date: 05/21/18 10:05:00 AM CDT, Pharmacy: [id number] Start Date: 05/21/18 Stop Date: 03/31/24 Status: Completed MS Contin 15 mg oral tablet, extended release 2 tab(s), Oral, q12hr, # 28 tab(s), 0 Refill(s), Start Date: 05/21/18 10:04:00 AM CDT, Pharmacy: [facility] [id number] Start Date: 05/21/18 Stop Date: 09/09/18 Status: Completed MS Contin 30 mg oral tablet, extended release 1 tab(s), Oral, q12hr interval, 0 Refill(s), Start Date: 09/12/18 9:49:00 AM CDT Start Date: 09/12/18 Stop Date: 06/16/19 Status: Completed Multi-Day Plus Minerals oral tablet 1 tab(s), Oral, Daily, # 30 tab(s), 0 Refill(s), Start Date: 09/30/22 3:49:00 PM MAINTENANCE MECHANIC MILLWRIGHT Start Date: 09/30/22 Status: Ordered oxycodone-acetaminophen 10 mg-325 mg oral tablet 0 Refill(s), Start Date: 11/18/22 1:27:00 PM MAINTENANCE MECHANIC MILLWRIGHT Start Date: 11/18/22 Stop Date: 04/09/23 Status: [...] Start Date: 05/17/18 4:24:00 PM CDT, Pharmacy: [id number] Start Date: 05/17/18 Stop Date: 09/09/18 Status: Completed Percocet 5/325 oral tablet See Instructions, PRN PRN for pain, 1 tab(s) Oral q6hr not to exceed 4000 mg acetaminophen per day,# 60 tab(s), 0 Refill(s), Start Date: 09/14/18 9:23:00 AM CDT, Pharmacy: [facility] Start Date: 09/14/18 Stop Date: 06/16/19 Status: Completed pregabalin 75 mg oral capsule 1 cap(s), Oral, BID, 0 Refill(s), Start Date: 03/31/24 10:44:00 AM CDT Start Date: 03/31/24 Status: Ordered Senokot S 50 mg-8.6 mg oral tablet 1 tab(s), Oral, BID, X 10 days, # 20 tab(s), 0 Refill(s), Start Date: 05/21/18 10:05:00 AM CDT, Pharmacy: [facility] [id number] Start Date: 05/21/18 Stop Date: 05/31/18 Status: Completed tamsulosin 0.4 mg oral capsule 1 cap(s), Oral, Daily, # 90 cap(s), 3 Refill(s), Start Date: 12/20/18 1:38:00 PM MAINTENANCE MECHANIC MILLWRIGHT, Pharmacy: [facility] Start Date: 12/20/18 Stop Date: 09/30/22 Status: Completed tamsulosin 0.4 mg oral capsule 1 cap(s), Oral, Daily, 0 Refill(s), Start Date: 09/09/18 7:57:00 AM CDT Start Date: 09/09/18 Stop Date: 12/20/18 Status: Discontinued traMADol 50 mg oral tablet 1 tab(s), Oral, q4hr interval, PRN PRN as needed for pain, # 12 tab(s), 0 Refill(s), Start Date: 03/03/23 1:54:00 PM CDT, Pharmacy: [facility], 173, cm, 11/18/22 13:25:00 MAINTENANCE MECHANIC MILLWRIGHT, Height/Length Measured, 89.5, kg, 03/03/23 12:25:00 CDT, Weight Dosing Start Date: 03/03/23 Stop Date: 03/31/24 Status: Completed vancomycin 1 g intravenous injection IV, q12hr interval, prescribed by Dr Perdue, 0 Refill(s), Start Date: 10/21/18 8:45:00 AM MAINTENANCE MECHANIC MILLWRIGHT Start Date: 10/21/18 Stop Date: 11/16/18 Status: Completed Zinc 140 mg (as elemental zinc 50 mg) oral tablet 1 tab(s), Oral, Daily, # 90 tab(s), 0 Refill(s), Start Date: 09/30/22 3:48:00 PM MAINTENANCE MECHANIC MILLWRIGHT Start Date: 09/30/22 Status: Ordered Problem List [...] Elbow surgery from elbow to forearm 13left [id number] procedure 15left 16LT Rotator Cuff Repair 17right 18RT Tendon Repair 19right side 20RT Wrist Surgery- Frzn wrist- 2 screws Social History Social History Type Response Sex Male Patient Care team information Personnel Name: Carlos Enrique Obando MD Address: Address: [address] [place] [address]
--- OUTSIDE RECORDS SUMMARY | 2024-11-23 00:10 | XMS_ITS | Continuity of Care Document ---
Author Organization [facility] Address [address] [place] [address] Care Team Providers Care Foreign Collection Clerk Name Role Phone Carlos Enrique Obando Primary Care Physician [phone] Encounter Date(s): 07/26/24 - 07/26/24 [facility] [address] [place] [address]- [place] Discharge Disposition: 01 Discharged to Home or Self Care Attending Physician: Carlos Enrique Obando MD Allergies, Adverse [...] Start Date: 04/22/23 10:25:00 AM CDT, Pharmacy: [facility], 173, cm, 04/09/23 15:48:00 CDT, Height/Length Measured, [...] Start Date: 03/09/23 10:48:00 AM CDT, Pharmacy: [facility], 173, cm, 03/09/23 10:20:00 CDT, Height/Length Measured, 89.5, kg, 03/09/23 10:22:00 CDT, Weight Dosing Start Date: 03/09/23 Stop Date: 08/27/23 Status: Completed amLODIPine 5 mg oral tablet 1 tab(s), Oral, Daily, # 90 tab(s), 3 Refill(s), Start Date: 08/27/23 8:41:00 AM CDT, Pharmacy: [facility], 173, cm, 04/09/23 15:48:00 CDT, Height/Length Measured, [...] Start Date: 07/26/24 3:47:00 PM CDT, Pharmacy: [facility] #[id number], 173, cm, 07/26/24 15:14:00 CDT, Height/Length Measured, [...] Start Date: 07/07/24 11:58:00 AM CDT, Pharmacy: [facility] #[id number], 173, cm, 07/07/24 9:24:00 CDT, Height/Length Measured, 88.2, kg, 07/07/24 9:25:00 CDT, Weight Dosing Start Date: 07/07/24 Status: Ordered baclofen 10 mg oral tablet 1 tab(s), Oral, TID, # 30 tab(s), 0 Refill(s), Start Date: 03/09/23 10:49:00 AM CDT, [facility], 173, cm, 03/09/23 10:20:00 CDT, [...] Refill(s), Start Date: 11/18/22 1:27:00 PM MAINTENANCE FOREMAN Start Date: 11/18/22 Stop Date: 03/09/23 Status: Discontinued baclofen 10 mg oral tablet 1 tab(s), Oral, TID, PRN PRN for pain, 0 Refill(s), Start Date: 05/15/18 11:15:00 PM CDT Start Date: 05/15/18 Stop Date: 06/16/19 Status: Completed baclofen 10 mg tablet baclofen 10 mg tablet, 1 tab(s), Oral, TID, # 30 tab(s), 2 Refill(s), Pharmacy: [facility], 173, cm, 04/09/23 15:48:00 CDT, Height/Length Measured, 87.6, kg, 04/09/23 15:50:00 CDT, Weight Dosing Start Date: 06/08/23 Stop Date: 03/31/24 Status: Completed baclofen 10 mg tablet baclofen 10 mg tablet, 1 tab(s), Oral, TID, # 30 tab(s), 2 Refill(s), Pharmacy: [facility], 173, cm, 04/09/23 15:48:00 CDT, Height/Length Measured, 87.6, kg, 04/09/23 15:50:00 CDT, Weight Dosing Start Date: 06/18/23 Stop Date: 03/31/24 Status: Completed carisoprodol 250 mg oral tablet 1 tab(s), Oral, BID, # 60 tab(s), 5 Refill(s), Start Date: 07/26/24 3:47:00 PM CDT, Pharmacy: [facility] #[id number], 173, cm, 07/26/24 15:14:00 CDT, Height/Length Measured, [...] Refill(s), Start Date: 11/09/18 6:34:00 PM MAINTENANCE FOREMAN, Pharmacy: [facility] Start Date: 11/09/18 Stop Date: 12/16/18 Status: Completed ciprofloxacin 750 mg oral tablet 1 tab(s), Oral, q12hr, 2h away from dairy, X 14 days, # 28 tab(s), 2 Refill(s), Start Date: :21:00 PM MAINTENANCE FOREMAN, Pharmacy: [facility] Start Date: 09/19/18 Stop Date: 11/09/18 [...] 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 daily 3 months 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, # 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, 0 Refill(s), 03/16/19 [...] 3 Refill(s), Start Date: 12/20/18 1:37:00 PM [facility], Pharmacy: [facility] Start Date: 12/20/18 [...] 11:55:00 AM CDT, Pharmacy: [facility], 173, cm, 03/31/24 10:46:00 CDT, Height/Length Measured, [...] Start Date: 04/19/24 10:19:00 AM CDT, Pharmacy: [facility] #[id number], 173, cm, 03/31/24 10:46:00 CDT, Height/Length Measured, 88.2, kg, 03/31/24 10:51:00 CDT, Weight Dosing Start Date: 04/19/24 Stop Date: 06/21/24 Status: Completed gabapentin 300 mg oral capsule 1 cap(s), Oral, TID, # 90 cap(s), 11 Refill(s), Start Date: 07/07/24 10:05:00 AM CDT, Pharmacy: [facility] #[id number], 173, cm, 07/07/24 9:24:00 CDT, Height/Length Measured, 88.2, kg, 07/07/24 9:25:00 CDT, Weight Dosing Start Date: 07/07/24 Stop Date: 07/11/24 Status: Discontinued hydrocodone-acetaminophen 5 mg-325 mg oral tablet See Instructions, 1/2 to 1 tab(s) Oral TID, # 60 tab(s), 0 Refill(s), Start Date: 07/11/24 2:53:00 PM CDT, Pharmacy: [facility] #[id number], 173, cm, 07/07/24 9:24:00 CDT, Height/Length Measured,88.2, kg, 07/07/24 9:25:00 CDT, Weight Dosing Start Date: 07/11/24 Stop Date: 07/26/24 Status: Discontinued ibuprofen 600 mg oral tablet 1 tab(s), Oral, QID, PRN PRN for pain, with food or milk, # 30 tab(s), 0 Refill(s), Start Date: 03/03/23 1:53:00 PM CDT, Pharmacy: [facility], 173, cm, 11/18/22 13:25:00 MAINTENANCE FOREMAN, Height/Length Measured, 89.5, kg, 03/03/23 12:25:00 CDT, [...] Start Date: 07/07/24 10:05:00 AM CDT, Pharmacy: [facility] #[id number], 173, cm, 07/07/24 9:24:00 CDT, Height/Length Measured, [...] Date: 03/31/24 11:26:00 AM CDT, [facility], [facility], cm, 03/31/24 10:46:00 CDT, Height/Length Measured, 88.2, kg, 03/31/24 10:51:00 CDT, Weight Dosing Start Date: 03/31/24 Stop Date: 04/11/24 Status: Completed levoFLOXacin 500 mg oral tablet 1 tab(s), Oral, Daily, For chronic recurrent sinusitis, X 10 days, # 10 tab(s), 0 Refill(s), Start Date: 04/11/24 3:29:00 PM CDT, Pharmacy: [facility], 173, cm, 03/31/24 10:46:00 CDT, Height/Length Measured, 88.2, kg, 03/31/24 10:51:00 CDT, Weight Dosing Start Date: 04/11/24 Stop Date: 04/19/24 Status: Completed levoFLOXacin 500 mg oral tablet 1 tab(s), Oral, Daily, For chronic recurrent sinusitis, # 10 tab(s), 0 Refill(s), Start Date: 04/19/24 10:19:00 AM CDT, Pharmacy: [facility] #[id number], 173, cm, 03/31/24 10:46:00 CDT, Height/Length Measured, 88.2, kg, 03/31/24 10:51:00 CDT, Weight Dosing Start Date: 04/19/24 Stop Date: 06/06/24 Status: Completed linezolid 600 mg oral tablet 1 tab(s), Oral, q12hr, generic please, # 28 tab(s), 0 Refill(s), Start Date: 11/16/18 11:41:00 AM MAINTENANCE FOREMAN, Pharmacy: [facility] Start Date: 11/16/18 Stop Date: 12/02/18 Status: Completed Medrol 4 mg oral tablet 1 packet(s), Oral, ONETIME, as directed on package labeling, # 21 tab(s), 0 Refill(s), Start Date: 11/18/22 1:39:00 PM MAINTENANCE FOREMAN, Pharmacy: [facility], 173, cm, 11/18/22 13:25:00 MAINTENANCE FOREMAN, Height/Length Measured, 86.3, kg, 11/18/22 13:27:00 MAINTENANCE FOREMAN, Weight Dosing Start Date: 11/18/22 Stop Date: 03/09/23 Status: Completed metFORMIN 500 mg oral tablet 0.5 tab(s), Oral, BID, # 30 tab(s), 11 Refill(s), Start Date: 04/03/24 11:56:00 AM CDT, Pharmacy: [facility], 173, cm, 03/31/24 10:46:00 CDT, Height/Length Measured, 88.2, kg, 03/31/24 10:51:00 CDT, Weight Dosing Start Date: 04/03/24 Stop Date: 04/19/24 Status: Completed metFORMIN 500 mg oral tablet 0.5 tab(s), Oral, BID, # 30 tab(s), 11 Refill(s), Start Date: 04/19/24 10:19:00 AM CDT, Pharmacy: [facility] #[id number], 173, cm, 03/31/24 10:46:00 CDT, Height/Length Measured, 88.2, kg, 03/31/2410:51:00 CDT, Weight Dosing Start Date: 04/19/24 Stop Date: 06/21/24 Status: Completed metFORMIN 500 mg oral tablet 1 tab(s), Oral, BID, # 180 tab(s), 3 Refill(s), Start Date: 07/07/24 11:58:00 AM CDT, Pharmacy: [facility] #[id number], 173, cm, 07/07/24 9:24:00 CDT, Height/Length Measured, 88.2, kg, 07/07/24 9:25:00 CDT, Weight Dosing Start Date: 07/07/24 Status: Ordered MiraLax oral powder for reconstitution 17 gm, Oral, Daily, Dissolve in water before taking, # 255 gm, 0 Refill(s), Start Date: 05/21/18 10:05:00 AM CDT, Pharmacy: [facility] [id number] Start Date: 05/21/18 Stop Date: 03/31/24 Status: Completed MS Contin 15 mg oral tablet, extended release 2 tab(s), Oral, q12hr, # 28 tab(s), 0 Refill(s), Start Date: 05/21/18 10:04:00 AM CDT, Pharmacy: [facility] [id number] Start Date: 05/21/18 Stop Date: 09/09/18 Status: Completed MS Contin 30 mg oral tablet, extended release 1 tab(s), Oral, q12hr interval, 0 Refill(s), Start Date: 09/12/18 9:49:00 AM CDT Start Date: 09/12/18 Stop Date: 06/16/19 Status: Completed Multi-Day Plus Minerals oral tablet 1 tab(s), Oral, Daily, # 30 tab(s), 0 Refill(s), Start Date: 09/30/22 3:49:00 PM MAINTENANCE FOREMAN Start Date: 09/30/22 Stop Date: 06/21/24 Status: Completed Narcan 4 mg/0.1 mL nasal spray 1 spray(s), Nasal, ONETIME, # 2 EA, 11 Refill(s), Start Date: 07/07/24 10:15:00 AM CDT, Pharmacy: [facility] #[id number], 173, cm, 07/07/24 9:24:00 CDT, Height/Length Measured, 88.2, kg, :25:00 CDT, Weight Dosing Start Date: 07/07/24 Stop Date: 07/26/24 Status: Discontinued oxycodone-acetaminophen 10 mg-325 mg oral tablet 0 Refill(s), Start Date: 11/18/22 1:27:00 PM MAINTENANCE FOREMAN Start Date: 11/18/22 Stop Date: 04/09/23 Status: [...] Start Date: 07/07/24 10:05:00 AM CDT, Pharmacy: [facility] #[id number], 173, cm, 07/07/24 9:24:00 CDT, Height/Length Measured, [...] Start Date: 05/17/18 4:24:00 PM CDT, Pharmacy: [facility] [id number] Start Date: 05/17/18 Stop Date: 09/09/18 Status: Completed Percocet 5/325 oral tablet See Instructions, PRN PRN for pain, 1 tab(s) Oral q6hr not to exceed 4000 mg acetaminophen per day,# 60 tab(s), 0 Refill(s), Start Date: 09/14/18 9:23:00 AM CDT, Pharmacy: [facility] Start Date: 09/14/18 Stop Date: 06/16/19 Status: Completed predniSONE 10 mg oral tablet 3 tab(s), Oral, BID, For inflammation and pain, # 84 tab(s), 0 Refill(s), Start Date: 07/26/24 3:47:00 PM CDT, Pharmacy: [facility] #[id number], 173, cm, 07/26/24 15:14:00 CDT, Height/Length Measured, [...] Start Date: 05/21/18 10:05:00 AM CDT, Pharmacy: [facility] [id number] Start Date: 05/21/18 Stop Date: 05/31/18 Status: Completed tamsulosin 0.4 mg oral capsule 1 cap(s), Oral, Daily, # 90 cap(s), 3 Refill(s), Start Date: 12/20/18 1:38:00 PM MAINTENANCE FOREMAN, Pharmacy: [facility] Start Date: 12/20/18 [...] 1:54:00 PM CDT, Pharmacy: [facility], 173, cm, 11/18/22 13:25:00 MAINTENANCE FOREMAN, Height/Length Measured, 89.5, kg, 03/03/23 12:25:00 CDT, Weight Dosing Start Date: 03/03/23 Stop Date: 03/31/24 Status: Completed vancomycin 1 g intravenous injection IV, q12hr interval, prescribed by Dr Perdue, 0 Refill(s), Start Date: 10/21/18 8:45:00 AM MAINTENANCE FOREMAN Start Date: 10/21/18 Stop Date: 11/16/18 Status: Completed Zinc 140 mg (as elemental zinc 50 mg) oral tablet 1 tab(s), Oral, Daily, # 90 tab(s), 0 Refill(s), Start Date: 09/30/22 3:48:00 PM MAINTENANCE FOREMAN Start Date: 09/30/22 Stop Date: 06/21/24 Status: [...] surgical case 2Septoplasty w/ turbinoplasty w/ Dr. zhoa 3auto-populated from documented surgical case 4auto-populated from documented surgical case 5auto-populated from documented surgical case 6auto-populated from documented surgical case 7auto-populated from documented surgical case 8auto-populated from documented surgical case 9auto-populated from documented surgical case 10several for multiple polyps -has one scheduled November 2018 11Colonoscopy w/ polypectomy 12/07/18 12ORIF left elbow 13LT Elbow surgery from elbow to forearm 14left [id number] procedure 16left 17LT Rotator Cuff Repair 18right 19RT Tendon Repair 20right side 21RT Wrist Surgery- Frzn wrist- 2 screws Results Radiology Reports * Exam Date Time Procedure Performing Provider Status 07/26/24 4:15 PM CR C Spine AP LAT OB L [place] Min 4 View Dana Reynolds; Auth (Verified) Notes: (CR C Spine AP LAT OBL [place] Min 4 View) Reason For Exam: 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 TECHNIQUE: 5 views of the cervical spine. COMPARISON: None available. FINDINGS: Vertebral bodies: Normal osseous mineralization. Normal vertebral body heights. There is mild straightening of the normal cervical lordosis. No acute fractures. Degenerative changes: Multilevel degenerative changes with moderate to severe disc space narrowing from C4 through C7. Moderate to advanced multilevel facet arthropathy. Bilateral foraminal narrowingis seen on the RIGHT from C3 through C7 on the LEFT from C4 through C7. Soft tissues: Unremarkable. Other: The patient is edentulous. IMPRESSION: 1. No acute findings. 2. Moderate cervical spondylosis as above. Electronically signed by Lucien Bell. Final Dictated by: Lucien Bell MD Dictated DT/TM: 07/26/2024 4:17 pm Signed by: Lucien Bell MD Signed (Electronic Signature): 07/26/2024 4:19 pm Social History Social History Type Response Sex Male Patient Care team information Personnel Name: Carlos Enrique Obando MD Address: Address: [address] [place] [address]
--- OUTSIDE RECORDS SUMMARY | 2024-11-23 00:10 | XMS_ITS | Clinical Summary ---
Author Organization [facility] Address [address] [place] [address] Phone Care Team Providers Care Administrative Support Specialist Name Role Phone Provider, None Primary Care Provider Unavailabl e Allergies No known active allergies Medications amitriptyline (ELAVIL) 75 MG Tablet Take 75 mg by mouth nightly. Active aspirin 325 MG Tablet Take 325 mg by mouth 2 times daily. Active Calcium Carbonate-Vitam in D (CALCIUM 500 + D PO) Take 1 Tab by mouth 3 times daily. Active oxyCODONE-Aceta minophen (PERCOCET) 10-325 MG Tablet Take 1 Tab by mouth every 6 hours as needed for Moderate or more severe pain. Active polyethylene glycol (GLYCOLAX) Powder Take 17 g by mouth daily as needed for Constipation. Mix with 4-8oz of liquid. Active tamsulosin (FLOMAX) 0.4 MG Capsule Take 0.4 mg by mouth daily. Active Multiple Vitamin (MULTIVITAMINS PO) Take 1 Tab by mouth daily. 11/29/2019 Active ascorbic acid (ASCORBIC ACID) 500 MG Tablet Take 500 mg by mouth 2 times daily. 11/29/2019 Active Social History Tobacco Use Types Packs/Day Years Used Date Smoking Tobacco: Never Assessed Sex and Gender Information Value Date Recorded Sex Assigned at Not on file Legal Sex Male 4:33 PM SOLE BUFFER Gender Identity Not on file Sexual Orientation Not on file Last Filed Vital Signs Vital Sign Reading Time Taken Comments Blood Pressure 124/80 12/18/2019 10:57 AM SOLE BUFFER Pulse 90 12/18/2019 10:57 AM SOLE BUFFER Temperature 36.8 ??C (98.2 ??F) 12/18/2019 10:[address] Respiratory Rate 18 12/18/2019 10:57 AM SOLE BUFFER Oxygen Saturation 97% 12/18/2019 10:57 AM SOLE BUFFER Inhaled Oxygen Concentration - - Weight 86.6 kg (191 lb) 12/16/2019 11:16 AM SOLE BUFFER Height 180.3 cm (5' 11 ) 11/07/2019 9:02 AM SOLE BUFFER Body Mass Index 26.64 11/07/2019 9:02 AM SOLE BUFFER Plan of Treatment Health Maintenance Due Date Last Done Comments Hepatitis C Virus (HCV) Screening 1955 TdaP Immunization 1955 Colonoscopy 1998 Colorectal Cancer Screening 1998 Cologuard 2003 Immunochemical Fecal Occult Blood 2003 Pneumococcal Immunization (5 0+ years) (1 of 1 - PCV) 2003 Zoster Immunization (1 of 2) 2003 Influenza Immunization (#1) 2024 11/03/2019 SARS-COV-2 Immunization ( - 2023-25 season) 2024 Respiratory Syncytial Virus (RSV) Immunization (Adult) (1 - 1-dose 75+ series) 2028 Hepatitis B Immunization Aged Out No longer eligible based on patient's age to complete this topic Meningococcal Immunization (ACWY) Aged Out No longer eligible based on patient's age to complete this topic Rotavirus Immunization Aged Out No lo nger eligible based on patient's age to complete this topic Advance Directives * Full Code (Latest Code Status on File) Date Activated Date Inactivated Comments 11/16/2019 10:13 AM Care Teams Administrative Support Specialist Relationship Specialty Start Date End Date Provider, None [place] PCP - General 11/27/19
--- OUTSIDE RECORDS SUMMARY | 2024-11-23 00:10 | XMS_ITS | Continuity of Care Document ---
Author Organization [facility] Address [address] [place] [address] Care Team Providers Care Vehicle Safety Inspector Name Role Phone Carlos Enrique Obando Primary Care Physician Encounter Date(s): 03/31/24 - 03/31/24 [facility] [address] [place], [place] [address] Discharge Disposition: 01 Discharged to Home or [...] Start Date: 04/22/23 10:25:00 AM CDT, Pharmacy: [facility], 173, [...] Start Date: 03/09/23 10:48:00 AM CDT, Pharmacy: [facility], 173, cm, 03/09/23 10:20:00 CDT, Height/Length Measured, 89.5, kg, 03/09/23 10:22:00 CDT, Weight Dosing Start Date: 03/09/23 Stop Date: 08/27/23 Status: Completed amLODIPine 5 mg oral tablet 1 tab(s), Oral, Daily, # 90 tab(s), 3 Refill(s), Start Date: 08/27/23 8:41:00 AM CDT, Pharmacy: [facility], 173, [...] Start Date: 03/09/23 10:49:00 AM CDT, Pharmacy: [facility], [facility], cm, 03/09/23 10:20:00 CDT, Height/Length Measured, 89.5, kg, 03/09/23 10:22:00 CDT,Weight Dosing Start Date: 03/09/23 Stop Date: 04/22/23 Status: Completed baclofen 10 mg oral tablet 1 tab(s), Oral, TID, # 30 tab(s), 1 Refill(s), Start Date: 04/22/23 11:37:00 AM CDT, [facility], cm, 04/09/23 15:48:00 CDT, Height/Length Measured, 87.6, kg, 04/09/23 15:50:00 CDT, Weight Dosing Start Date: 04/22/23 Stop Date: 03/31/24 Status: Completed baclofen 10 mg oral tablet 0 Refill(s), Start Date: 11/18/22 1:27:00 PM TECHNICAL ILLUSTRATOR Start Date: 11/18/22 Stop Date: 03/09/23 Status: Discontinued baclofen 10 mg oral tablet 1 tab(s), Oral, TID, PRN PRN for pain, 0 Refill(s), Start Date: 05/15/18 11:15:00 PM CDT Start Date: 05/15/18 Stop Date: 06/16/19 Status: Completed baclofen 10 mg tablet baclofen 10 mg tablet, 1 tab(s), Oral, TID, # 30 tab(s), 2 Refill(s), Pharmacy: [facility], 173, cm, 04/09/23 15:48:00 CDT, Height/Length Measured, 87.6, kg, 04/09/23 15:50:00 CDT, Weight Dosing Start Date: 06/08/23 Stop Date: 03/31/24 Status: Completed baclofen 10 mg tablet baclofen 10 mg tablet, 1 tab(s), Oral, TID, # 30 tab(s), 2 Refill(s), Pharmacy: [facility], 173, cm, 04/09/23 [...] 0 Refill(s), Start Date: 11/09/18 6:34:00 PM TECHNICAL ILLUSTRATOR, Pharmacy: [facility] Start Date: 11/09/18 Stop Date: 12/16/18 Status: Completed ciprofloxacin 750 mg oral tablet 1 tab(s), Oral, q12hr, 2h away from dairy, X 14 days, # 28 tab(s), 2 Refill(s), Start Date: :21:00 PM TECHNICAL ILLUSTRATOR, Pharmacy: [facility] Start Date: 09/19/18 Stop Date: 11/09/18 [...] 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 daily 3 months 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 TARGET DEVELOPER, # 1 boxes, 0 Refill(s), 03/16/19 6:45:00 [...] 3 Refill(s), Start Date: 12/20/18 1:37:00 PM TECHNICAL ILLUSTRATOR, Pharmacy: [facility] Start Date: 12/20/18 Stop Date: 09/30/22 Status: Completed finasteride 5 mg oral tablet 1 tab(s), Oral, Daily, # 30 tab(s), 0 Refill(s), Start Date: 03/31/24 10:43:00 AM CDT Start Date: 03/31/24 Status: Ordered ibuprofen 600 mg oral tablet 1 tab(s), Oral, QID, PRN PRN for pain, with food or milk, # 30 tab(s), 0 Refill(s), Start Date: 03/03/23 1:53:00 PM CDT, Pharmacy: [facility], 173, cm, 11/18/22 13:25:00 TECHNICAL ILLUSTRATOR, Height/Length Measured, 89.5, kg, 03/03/23 12:25:00 CDT, [...] Start Date: 03/31/24 11:26:00 AM CDT, Pharmacy: [facility], 173, cm, 03/31/24 10:46:00 CDT, Height/Length Measured, 88.2, kg, 03/31/24 10:51:00 CDT, Weight Dosing Start Date: 03/31/24 Stop Date: 04/10/24 Status: Ordered linezolid 600 mg oral tablet 1 tab(s), Oral, q12hr, generic please, # 28 tab(s), 0 Refill(s), Start Date: 11/16/18 11:41:00 AM TECHNICAL ILLUSTRATOR, Pharmacy: [facility] Start Date: 11/16/18 Stop Date: 12/02/18 Status: Completed Medrol 4 mg oral tablet 1 packet(s), Oral, ONETIME, as directed on package labeling, # 21 tab(s), 0 Refill(s), Start Date: 11/18/22 1:39:00 PM TECHNICAL ILLUSTRATOR, Pharmacy: [facility], 173, cm, 11/18/22 13:25:00 TECHNICAL ILLUSTRATOR, Height/Length Measured, 86.3, kg, 11/18/22 13:27:00 TECHNICAL ILLUSTRATOR, Weight Dosing Start Date: 11/18/22 Stop Date: 03/09/23 Status: Completed MiraLax oral powder for reconstitution 17 gm, Oral, Daily, Dissolve in water before taking, # 255 gm, 0 Refill(s), Start Date: 05/21/18 10:05:00 AM CDT, Pharmacy: [id number] Start Date: 05/21/18 Stop Date: 03/31/24 Status: Completed MS Contin 15 mg oral tablet, extended release 2 tab(s), Oral, q12hr, # 28 tab(s), 0 Refill(s), Start Date: 05/21/18 10:04:00 AM CDT, Pharmacy: [id number] Start Date: 05/21/18 Stop Date: 09/09/18 Status: Completed MS Contin 30 mg oral tablet, extended release 1 tab(s), Oral, q12hr interval, 0 Refill(s), Start Date: 09/12/18 9:49:00 AM CDT Start Date: 09/12/18 Stop Date: 06/16/19 Status: Completed Multi-Day Plus Minerals oral tablet 1 tab(s), Oral, Daily, # 30 tab(s), 0 Refill(s), Start Date: 09/30/22 3:49:00 PM TECHNICAL ILLUSTRATOR Start Date: 09/30/22 Status: Ordered oxycodone-acetaminophen 10 mg-325 mg oral tablet 0 Refill(s), Start Date: 11/18/22 1:27:00 PM TECHNICAL ILLUSTRATOR Start Date: 11/18/22 Stop Date: 04/09/23 Status: [...] Start Date: 05/17/18 4:24:00 PM CDT, Pharmacy: [id number] Start Date: 05/17/18 Stop Date: 09/09/18 Status: Completed Percocet 5/325 oral tablet See Instructions, PRN PRN for pain, 1 tab(s) Oral q6hr not to exceed 4000 mg acetaminophen per day,# 60 tab(s), 0 Refill(s), Start Date: 09/14/18 9:23:00 AM CDT, Pharmacy: [facility] Start Date: 09/14/18 Stop Date: 06/16/19 Status: Completed pregabalin 75 mg oral capsule 1 cap(s), Oral, BID, 0 Refill(s), Start Date: 03/31/24 10:44:00 AM CDT Start Date: 03/31/24 Status: Ordered Senokot S 50 mg-8.6 mg oral tablet 1 tab(s), Oral, BID, X 10 days, # 20 tab(s), 0 Refill(s), Start Date: 05/21/18 10:05:00 AM CDT, Pharmacy: [email or web address] [id number] Start Date: 05/21/18 Stop Date: 05/31/18 Status: Completed tamsulosin 0.4 mg oral capsule 1 cap(s), Oral, Daily, # 90 cap(s), 3 Refill(s), Start Date: 12/20/18 1:38:00 PM TECHNICAL ILLUSTRATOR, Pharmacy: [facility] Start Date: 12/20/18 Stop Date: 09/30/22 Status: Completed tamsulosin 0.4 mg oral capsule 1 cap(s), Oral, Daily, 0 Refill(s), Start Date: 09/09/18 7:57:00 AM CDT Start Date: 09/09/18 Stop Date: 12/20/18 Status: Discontinued traMADol 50 mg oral tablet 1 tab(s), Oral, q4hr interval, PRN PRN as needed for pain, # 12 tab(s), 0 Refill(s), Start Date: 03/03/23 1:54:00 PM CDT, Pharmacy: [facility], 173, cm, 11/18/22 13:25:00 TECHNICAL ILLUSTRATOR, Height/Length Measured, 89.5, kg, 03/03/23 12:25:00 CDT, Weight Dosing Start Date: 03/03/23 Stop Date: 03/31/24 Status: Completed vancomycin 1 g intravenous injection IV, q12hr interval, prescribed by Dr Perdue, 0 Refill(s), Start Date: 10/21/18 8:45:00 AM TECHNICAL ILLUSTRATOR Start Date: 10/21/18 Stop Date: 11/16/18 Status: Completed Zinc 140 mg (as elemental zinc 50 mg) oral tablet 1 tab(s), Oral, Daily, # 90 tab(s), 0 Refill(s), Start Date: 09/30/22 3:48:00 PM TECHNICAL ILLUSTRATOR Start Date: 09/30/22 Status: Ordered Problem List [...] elbow 10left 11left 12right 13right side Results Laboratory List Name Date .eGFR 03/31/24 Automated Diff 03/31/24 CBC With Differential 03/31/24 Comprehensive Metabolic Panel (CMP) 03/31 Free T4 03/31/24 Hemoglobin A1c 03/31/24 Lipid Panel 03/31/24 Thyroid Stimulating Hormone 03/31/24 Most recent to oldest [Reference Range]: 1 WBC [4.8-10.8 thou/mm3] 9.1 thou/mm3 (03/31/24:56 AM) RBC [4.60-6.00 Mil/mm3] 4.90 Mil/mm3 (03/31/24:56 AM) Neutrophils % Auto [50.0-75.0 %] 67.2 % (03/31/24:56 AM) Lymphocytes % Auto [15.0-41.0 %] 22.8 % (03/31/24 AM) Monocytes % Auto [2.0-10.0 %] 7.8 % (03/31/24:56 AM) Eosinophils % Auto [0.0-6.0 %] 1.6 % (03/31/24: AM) Basophil % Auto [0.0-1.0 %] .3 % (03/31/24: AM) BUN [7-18 mg/dL] 18 mg/dL (03/31/24: AM) Cholesterol Total [0-200 mg/dL] 122 mg/d L (03/31/24 AM) A/G Ratio 1 *NA* (03/31/24: AM) Albumin Lvl [3.4-5.0 g/dL] 4.2 g/dL (03/31/24: AM) Alkaline Phosphatase [46-116 unit/L] 83 unit/L (03/31/24:56 AM) ALT [16-63 unit/L] 46 unit/L (03/31/2456 AM) Anion Gap [5.0-15.0 mEq/L] 13.7 mEq/L (03/31/24:56 AM) AST [15-37 unit/L] 27 unit/L (03/31/24:56 AM) Basophil Absolute [0.0-0.1 thou/mm3] 0.0 thou/mm3 (03/31/24:56 AM) CO2 Lvl [21.0-32.0 mmol/L] 26.4 mmol/L (03/31/24:56 AM) Bilirubin Total [0.2-1.0 mg/dL] 0.8 mg/d L (03/31/24:56 AM) Calcium Lvl [8.5-10.1 mg/dL] 9.2 mg/dL (03/31/24 11:56 AM) Chloride Lvl [98-107 mEq/L] 104 mEq/L (03/31/24 11:56 AM) Creatinine Lvl [0.70-1.30 mg/dL] 0.91 mg /dL (03/31/24 11:56 AM) Estimated Average Glucose 146 mg/dL *NA* (03/31/24 11:56 AM) Eosinophil Absolute [0.0-0.7 thou/mm3] 0 .2 thou/mm3 (03/31/24 11:56 AM) Free T4 [0.76-1.46 ng/dL] 0.89 ng/dL (03/31/24 11:56 AM) Glucose Lvl [74-106 mg/dL] 134 mg/dL *HI* (03/31/24 11:56 AM) Hct [41.0-51.0 %] 45.1 % (03/31/24 11:56 AM) HDL Cholesterol [40-60 mg/dL] 48 mg/dL (03/31/24 11:56 AM) Hgb [14.0-17.0 g/dL] 15.8 g/dL (03/31/24 11:56 AM) Glycated Hemoglobin [3.8-5.6 %] 6.7 % 1 *HI* (03/31/24 11:56 AM) Immature Granulocyte Auto [0.10-2.00 %] 0.30 % (03/31/24 11:56 AM) Immature Gran Absolute [0.000-0.031 thou /mm3] 0.030 thou/mm3 (03/31/24 11:56 AM) LDL Cholesterol [0-99 mg/dL] 60 mg/dL (03/31/24 11:56 AM) Lymphocytes Absolute [1.5-4.0 thou/mm3] 2.1 thou/mm3 (03/31/24 11:56 AM) MCH [25.0-38.0 pg] 32.2 pg (03/31/24 11:56 AM) MCHC [31.0-37.0 g/dL] 35.0 g/dL (03/31/24 11:56 AM) MCV [80.0-94.0 fL] 92.0 fL (03/31/24 11:56 AM) Monocytes Absolute [0.0-1.0 thou/mm3] 0. 7 thou/mm3 (03/31/24 11:56 AM) MPV 9.9 *NA* (03/31/24 11:56 AM) Neutrophils Absolute [1.3-6.0 thou/mm3] 6.1 thou/mm3 *HI* (03/31/24 11:56 AM) Platelet [130-400 thou/mm3] 225 thou/mm3 (03/31/24 11:56 AM) Potassium Lvl [3.5-5.1 mEq/L] 4.1 mEq/L (03/31/24 11:56 AM) RDW [11.6-14.4 %] 11.6 % (03/31/24 11:56 AM) Sodium Lvl [136-145 mEq/L] 140 mEq/L (03/31/24 11:56 AM) Total Protein [6.4-8.2 g/dL] 7.8 g/dL (03/31/24 11:56 AM) Triglyceride [<=150 mg/dL] 68 mg/dL (03/31/24 11:56 AM) TSH [0.358-3.740 mIU/mL] 0.876 mIU/mL (03/31/24 11:56 AM) BUN/Creat Ratio [9.0-21.6] 19.8 (03/31/24 11:56 AM) Non HDL Cholesterol 74 *NA* (03/31/24 11:56 AM) Globulin 4 *NA* (03/31/24 11:56 AM) eGFR CKD-EPI [>=60] >90 (03/31/24 11:56 AM) 1Interpretive Data: Suggested Diagnosis HbA1C% Diabetic >/= 6.5 Prediabetes 5.7-6.4 Normal < 5.7 References: [place] [employer]. Classification and Diagnosis of Diabetes. Diabetes Care. 2017; 40 (Supplement 1): S11-S24 Social History Social History Type Response Sex Male Patient Care team information Personnel Name: Carlos Enrique Obando MD Address: Address: [address] [place] [address]
--- OUTSIDE RECORDS SUMMARY | 2024-11-23 00:10 | XMS_ITS | Encounter Summary ---
Author Organization [facility] Address [address] [place] [address] Phone Care Team Providers Care Revenue Settlements Administrator Name Role Phone Provider, None Primary Care Provider Unavailabl e Reason for Visit * Auth/Cert Specialty Diagnoses / Procedures Referred By Celine almaguer Referred To Contact Referral ID Status Reason Start Date Expiration Date Visits Re quested Visits Authorized [id number] 1 1 Encounter Details Date Type Department Care Team (Late st Contact Info) Description 12/18/2019 10:00 AM GAMES MANAGER Home Care Visit [facility] [address] [place] [address] Pushpa Vela V, RN [place] SN - HOME VISIT Social History Tobacco Use Types Packs/Day Years Used Date Smoking Tobacco: Never Assessed Sex and Gender Information Value Date Recorded Sex Assigned at Not on file Legal Sex Male 4:33 PM GAMES MANAGER Gender Identity Not on file Sexual Orientation Not on file documented as of this encounter Last Filed Vital Signs Vital Sign Reading Time Taken Comments Blood Pressure 124/80 12/18/2019 10:57 AM GAMES MANAGER Pulse 90 12/18/2019 10:57 AM GAMES MANAGER Temperature 36.8 ??C (98.2 ??F) 12/18/2019 10:[address] Respiratory Rate 18 12/18/2019 10:57 AM GAMES MANAGER Oxygen Saturation 97% 12/18/2019 10:57 AM GAMES MANAGER Inhaled Oxygen Concentration - - Weight - - Height - - Body Mass Index - - documented in this encounter Plan of Treatment Not on file documented as of this encounter Visit Diagnoses Not on filedocumented in this encounter Home Health Visit - Care Plan Visit Details Visit Type -SN - Home Health Visit Discipline -Fdc Problems Problem Description Start Date Status Goals Interve ntions FALL PREVENTION (O) Disciplines: Fdc, Physical Therapy, Occupational Therapy, Speech Language Pathology, Cable Television Program Director, Medical Social Work 12/16/2019 Active 1 goal linked to scheduled/docume nted intervention 1 goal intervention scheduled/documen lobito in this visit HC CARE SUMMARY Disciplines: Fdc, Physical Therapy, Occupational Therapy, Speech Language Pathology, Medical Social Work, Licensed Practical Nurse, Respiratory Therapy Care Summary 12/16/2019 Active 1 goal linked to scheduled/docume nted intervention 1 goal intervention scheduled/documen lobito in this visit HC SN MEDICATION Disciplines: Fdc SN Medication 12/16/2019 Active - 1 problem intervention scheduled/documen lobito in this visit SN SOC GENERAL ORDERS Disciplines: Fdc SN General Orders 12/16/2019 Active 1 goal linked to scheduled/docume nted intervention 1 goal intervention scheduled/documen lobito in this visit WOUND CARE EDUCATION Disciplines: Fdc Wound Care Education 12/16/2019 Active - 1 problem intervention scheduled/documen lobito in this visit WOUND CARE ORDERS(O) Disciplines: Fdc Wound Care Orders 12/16/2019 Active 1 goal linked to scheduled/docume nted intervention 1 goal intervention scheduled/documen lobito in this visit WOUND CARE ORDERS(O) Disciplines: Fdc Wound Care Orders 12/16/2019 Active 1 goal linked to scheduled/docume nted intervention 1 goal intervention scheduled/documen lobito in this visit HC SN RESUMPTION OF CARE (SURINDER) Disciplines: Fdc 12/16/2019 Active 1 goal linked to scheduled/docume [...] treat for: refused Social Work Focus: refused Cable Television Program Director to provide: refused Past Medical History: osteomyelitis [...] Care summary for Nursing. Summary of care Assessment performed and vital signs recorded. SN assessed wound, picture taken and measurements taken. SN performed wound care, patient tolerated well. Patient reports pain is tolerable, states he is taking pain medication on routine basis. Patient has an appointment on Wednesday with surgeon. No new concerns reported. Instructed patient to call homecare with any questions or concerns. Discussed SN visit schedule, patient verbalize agreement with plan of care. SMART goal I want my wound to be smaller next week. Plan for next visit Assessment Plan of care updates completed and provided to patient/caregiver: No, no updates today Medication Review/Education Problem:HC SN MEDICATION Completed Medication reconciliation performed. Needs/changes identified: none New major medication interactions or any symptomatic interactions identified: none Medication instructions provided for the following med(s): amitriptyline and oxycodone-including: reason for use, evaluation of effectiveness, side effects, frequency and dose Instruction provided to Patient Method of instruction [...] treat for: refused Social Work Focus: refused Cable Television Program Director to provide: refused Past Medical History: osteomyelitis [...] Problem:SN SOC GENERAL ORDERS Goal:HC SN General Completed See documentation of progress toward goals in outcomes. Vital signs outside of ordered parameters? no Physician notified? no. Urgent care since last visit none. Document detail on Emergent Care form as indicated n/a Instructed patient to call [facility] using the following method: Verbally Has patient fallen since last home visit? no Date of fall N/A Actions taken N/A Insurance change since last home visit no. (If yes, notify DPS) Has patient developed an infection since last home visit? no If yes, document detail on infection form and notify Infection Reporting. Homebound Criteria 1- Patient has illness/injury: open wound , and needs/has: medical contraindication due to infected/draining/compl icated wound Homebound Criteria 2- Inability to leave the home and leaving the home requires a taxing and considerable effort due to: leaving home exacerbates symptoms pain and fatigue Wound Education - All Wounds Problem:WOUND CARE EDUCATION Completed Patient instructed on wound care including signs and symptoms to report, packing safety, wound care procedure. Agrees to perform wound treatment as ordered on non-visit days. Instruction provided to Patient. Response verbalize understanding. Wound Care (Order Only) Description: Wound Number 1. Location left lateral ankle. Wound Care Order To be performed Daily, and as needed if dressing is soiled or comes off. To be performed by Skilled Nurse or caregiver. Remove Dressing. Cleanse wound with wound cleanser or normal saline. Apply xeroform then soak hydrofera blue with NS, placed on top of xeroform. Cover wound with mepilex Use skin prep/moisture barrier to protect surrounding skin PRN. Instruct/ Evaluate signs and symptoms of infection. Instruct/ Perform wound care as ordered. Instruct on signs and symptoms to report. Problem:WOUND CARE ORDERS(O) Goal:HC Wound Care Completed Wound # 1. Location: left lateral ankle Performed by Skilled Nurse. Wound Care Performed: Removed: dressing Cleansed with: wound cleanser. Packed with xeroform then hydrofera bue - number of pieces: 1 of each Covered with mepilex. Secured with n/a. PRN items used: n/a. Wound care performed by Caregiver -spouse on non-visit days when wound care is ordered. Wound Care (Order Only) Description: Wound Number 2. Location left upper thigh. Wound Care Order Leave skin graft donor site open to air. Instruct/ Evaluate signs and symptoms of infection. Instruct/ Perform wound care as ordered. Instruct on signs and symptoms to report. Problem:WOUND CARE ORDERS(O) Goal:HC Wound Care Completed Wound # 2. Location: left upper thigh Open to air SURINDER General (O) Problem:HC SN RESUMPTION OF CARE (SURINDER) Goal:HC SN Resumption of Care (SURINDER) Scheduled documented in this encounter Care Teams Revenue Settlements Administrator Relationship Specialty Start Date End Date Provider, None REAL PCP - General 11/27/19 documented as of this encounter
--- OUTSIDE RECORDS SUMMARY | 2024-11-23 00:10 | XMS_ITS | Continuity of Care Document ---
Author Organization [facility] Address [address] [facility] [address] [place] [address] Care Team Providers Care Living Coach Name Role Phone Carlos Enrique Obando Primary Care Physician Encounter Date(s): 04/20/24 - 04/20/24 Family Medicine [facility] [address] [place] [address]- Discharge Disposition: Discharged to Home or Self [...] Start Date: 04/22/23 10:25:00 AM CDT, Pharmacy: [facility], 173, cm, 04/09/23 15:48:00 CDT, Height/Length [...] Start Date: 03/09/23 10:48:00 AM CDT, Pharmacy: [facility], 173, cm, 03/09/23 10:20:00 CDT, Height/Length Measured, 89.5, kg, 03/09/23 10:22:00 CDT, Weight Dosing Start Date: 03/09/23 Stop Date: 08/27/23 Status: Completed amLODIPine 5 mg oral tablet 1 tab(s), Oral, Daily, # 90 tab(s), 3 Refill(s), Start Date: 08/27/23 8:41:00 AM CDT, Pharmacy: [facility], 173, cm, 04/09/23 15:48:00 CDT, Height/Length Measured, [...] Start Date: 03/09/23 10:49:00 AM CDT, Pharmacy: [facility], 173, cm, 03/09/23 10:20:00 CDT, Height/Length Measured, 89.5, kg, 03/09/23 10:22:00 CDT,Weight Dosing Start Date: 03/09/23 Stop Date: 04/22/23 Status: Completed baclofen 10 mg oral tablet 1 tab(s), Oral, TID, # 30 tab(s), 1 Refill(s), Start Date: 04/22/23 11:37:00 AM CDT, [facility], 173, cm, 04/09/23 15:48:00 CDT, Height/Length Measured, 87.6, kg, 04/09/23 15:50:00 CDT, Weight Dosing Start Date: 04/22/23 Stop Date: 03/31/24 Status: Completed baclofen 10 mg oral tablet 0 Refill(s), Start Date: 11/18/22 1:27:00 PM EXCELLENCE LEADER Start Date: 11/18/22 Stop Date: 03/09/23 Status: Discontinued baclofen 10 mg oral tablet 1 tab(s), Oral, TID, PRN PRN for pain, 0 Refill(s), Start Date: 05/15/18 11:15:00 PM CDT Start Date: 05/15/18 Stop Date: 06/16/19 Status: Completed baclofen 10 mg tablet baclofen 10 mg tablet, 1 tab(s), Oral, TID, # 30 tab(s), 2 Refill(s), Pharmacy: [facility], 173, cm, 04/09/23 15:48:00 CDT, Height/Length Measured, 87.6, kg, 04/09/23 15:50:00 CDT, Weight Dosing Start Date: 06/08/23 Stop Date: 03/31/24 Status: Completed baclofen 10 mg tablet baclofen 10 mg tablet, 1 tab(s), Oral, TID, # 30 tab(s), 2 Refill(s), Pharmacy: [facility], 173, cm, 04/09/23 15:48:00 CDT, Height/Length Measured, [...] 0 Refill(s), Start Date: 11/09/18 6:34:00 PM EXCELLENCE LEADER, Pharmacy: [facility] Start Date: 11/09/18 Stop Date: 12/16/18 Status: Completed ciprofloxacin 750 mg oral tablet 1 tab(s), Oral, q12hr, 2h away from dairy, X 14 days, # 28 tab(s), 2 Refill(s), Start Date: :21:00 PM EXCELLENCE LEADER, Pharmacy: [facility] Start Date: 09/19/18 Stop Date: 11/09/18 [...] 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 daily 3 months 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 CARE MANAGEMENT COORDINATOR, # 1 boxes, 0 Refill(s), 03/16/19 6:45:00 [...] 3 Refill(s), Start Date: 12/20/18 1:37:00 PM EXCELLENCE LEADER, Pharmacy: [facility] Start Date: 12/20/18 Stop Date: 09/30/22 Status: Completed finasteride 5 mg oral tablet 1 tab(s), Oral, Daily, # 30 tab(s), 0 Refill(s), Start Date: 03/31/24 10:43:00 AM CDT Start Date: 03/31/24 Status: Ordered fluticasone 50 mcg/inh nasal spray 2 spray(s), Nasal, BID, X 42 days, # 16 gm, 11 Refill(s), Start Date: 04/03/24 11:55:00 AM CDT, Pharmacy: [facility], 173, cm, 03/31/24 10:46:00 CDT, Height/Length Measured, [...] Start Date: 04/19/24 10:19:00 AM CDT, Pharmacy: [facility] #[id number], 173, cm, 03/31/24 10:46:00 CDT, Height/Length Measured, 88.2, kg, 03/31/24 10:51:00 CDT, Weight Dosing Start Date: 04/19/24 Stop Date: 09/05/25 Status: Ordered ibuprofen 600 mg oral tablet 1 tab(s), Oral, QID, PRN PRN for pain, with food or milk, # 30 tab(s), 0 Refill(s), Start Date: 03/03/23 1:53:00 PM CDT, Pharmacy: [facility], 173, cm, 11/18/22 13:25:00 EXCELLENCE LEADER, Height/Length Measured, 89.5, kg, 03/03/23 12:25:00 CDT, [...] Start Date: 03/31/24 11:26:00 AM CDT, Pharmacy: [facility], 173, cm, 03/31/24 10:46:00 CDT, Height/Length Measured, 88.2, kg, 03/31/24 10:51:00 CDT, Weight Dosing Start Date: 03/31/24 Stop Date: 04/11/24 Status: Completed levoFLOXacin 500 mg oral tablet 1 tab(s), Oral, Daily, For chronic recurrent sinusitis, X 10 days, # 10 tab(s), 0 Refill(s), Start Date: 04/11/24 3:29:00 PM CDT, Pharmacy: [facility], 173, cm, 03/31/24 10:46:00 CDT, Height/Length Measured, 88.2, kg, 03/31/24 10:51:00 CDT, Weight Dosing Start Date: 04/11/24 Stop Date: 04/19/24 Status: Completed levoFLOXacin 500 mg oral tablet 1 tab(s), Oral, Daily, For chronic recurrent sinusitis, # 10 tab(s), 0 Refill(s), Start Date: 04/19/24 10:19:00 AM CDT, Pharmacy: [facility] #[id number], 173, cm, 03/31/24 10:46:00 CDT, Height/Length Measured, 88.2, kg, 03/31/24 10:51:00 CDT, Weight Dosing Start Date: 04/19/24 Stop Date: 04/29/24 Status: Ordered linezolid 600 mg oral tablet 1 tab(s), Oral, q12hr, generic please, # 28 tab(s), 0 Refill(s), Start Date: 11/16/18 11:41:00 AM EXCELLENCE LEADER, Pharmacy: [facility] Start Date: 11/16/18 Stop Date: 12/02/18 Status: Completed Medrol 4 mg oral tablet 1 packet(s), Oral, ONETIME, as directed on package labeling, # 21 tab(s), 0 Refill(s), Start Date: 11/18/22 1:39:00 PM EXCELLENCE LEADER, Pharmacy: [facility], 173, cm, 11/18/22 13:25:00 EXCELLENCE LEADER, Height/Length Measured, 86.3, kg, 11/18/22 13:27:00 EXCELLENCE LEADER, Weight Dosing Start Date: 11/18/22 Stop Date: 03/09/23 Status: Completed metFORMIN 500 mg oral tablet 0.5 tab(s), Oral, BID, # 30 tab(s), 11 Refill(s), Start Date: 04/03/24 11:56:00 AM CDT, Pharmacy: [facility], 173, cm, 03/31/24 10:46:00 CDT, Height/Length Measured, 88.2, kg, 03/31/24 10:51:00 CDT, Weight Dosing Start Date: 04/03/24 Stop Date: 04/19/24 Status: Completed metFORMIN 500 mg oral tablet 0.5 tab(s), Oral, BID, # 30 tab(s), 11 Refill(s), Start Date: 04/19/24 10:19:00 AM CDT, Pharmacy: [facility] #[id number], 173, cm, 03/31/24 10:46:00 CDT, Height/Length Measured, 88.2, kg, 03/31/2410:51:00 CDT, Weight Dosing Start Date: 04/19/24 Status: Ordered MiraLax oral powder for reconstitution 17 gm, Oral, Daily, Dissolve in water before taking, # 255 gm, 0 Refill(s), Start Date: 05/21/18 10:05:00 AM CDT, Pharmacy: [facility] [id number] Start Date: 05/21/18 Stop Date: 03/31/24 Status: Completed MS Contin 15 mg oral tablet, extended release 2 tab(s), Oral, q12hr, # 28 tab(s), 0 Refill(s), Start Date: 05/21/18 10:04:00 AM CDT, Pharmacy: [facility] [id number] Start Date: 05/21/18 Stop Date: 09/09/18 Status: Completed MS Contin 30 mg oral tablet, extended release 1 tab(s), Oral, q12hr interval, 0 Refill(s), Start Date: 09/12/18 9:49:00 AM CDT Start Date: 09/12/18 Stop Date: 06/16/19 Status: Completed Multi-Day Plus Minerals oral tablet 1 tab(s), Oral, Daily, # 30 tab(s), 0 Refill(s), Start Date: 09/30/22 3:49:00 PM EXCELLENCE LEADER Start Date: 09/30/22 Status: Ordered oxycodone-acetaminophen 10 mg-325 mg oral tablet 0 Refill(s), Start Date: 11/18/22 1:27:00 PM EXCELLENCE LEADER Start Date: 11/18/22 Stop Date: 04/09/23 Status: [...] Start Date: 05/17/18 4:24:00 PM CDT, Pharmacy: [facility] [id number] Start Date: 05/17/18 Stop Date: 09/09/18 Status: Completed Percocet 5/325 oral tablet See Instructions, PRN PRN for pain, 1 tab(s) Oral q6hr not to exceed 4000 mg acetaminophen per day,# 60 tab(s), 0 Refill(s), Start Date: 09/14/18 9:23:00 AM CDT, Pharmacy: [facility] Start Date: 09/14/18 Stop Date: 06/16/19 Status: Completed pregabalin 75 mg oral capsule 1 cap(s), Oral, BID, 0 Refill(s), Start Date: 03/31/24 10:44:00 AM CDT Start Date: 03/31/24 Status: Ordered Senokot S 50 mg-8.6 mg oral tablet 1 tab(s), Oral, BID, X 10 days, # 20 tab(s), 0 Refill(s), Start Date: 05/21/18 10:05:00 AM CDT, Pharmacy: [facility] [id number] Start Date: 05/21/18 Stop Date: 05/31/18 Status: Completed tamsulosin 0.4 mg oral capsule 1 cap(s), Oral, Daily, # 90 cap(s), 3 Refill(s), Start Date: 12/20/18 1:38:00 PM EXCELLENCE LEADER, Pharmacy: [facility] Start Date: 12/20/18 Stop Date: 09/30/22 Status: Completed tamsulosin 0.4 mg oral capsule 1 cap(s), Oral, Daily, 0 Refill(s), Start Date: 09/09/18 7:57:00 AM CDT Start Date: 09/09/18 Stop Date: 12/20/18 Status: Discontinued traMADol 50 mg oral tablet 1 tab(s), Oral, q4hr interval, PRN PRN as needed for pain, # 12 tab(s), 0 Refill(s), Start Date: 03/03/23 1:54:00 PM CDT, Pharmacy: [facility], 173, cm, 11/18/22 13:25:00 EXCELLENCE LEADER, Height/Length Measured, 89.5, kg, 03/03/23 12:25:00 CDT, Weight Dosing Start Date: 03/03/23 Stop Date: 03/31/24 Status: Completed vancomycin 1 g intravenous injection IV, q12hr interval, prescribed by Dr Perdue, 0 Refill(s), Start Date: 10/21/18 8:45:00 AM EXCELLENCE LEADER Start Date: 10/21/18 Stop Date: 11/16/18 Status: Completed Zinc 140 mg (as elemental zinc 50 mg) oral tablet 1 tab(s), Oral, Daily, # 90 tab(s), 0 Refill(s), Start Date: 09/30/22 3:48:00 PM EXCELLENCE LEADER Start Date: 09/30/22 Status: Ordered Problem List [...] Elbow surgery from elbow to forearm 13left [id number] procedure 15left 16LT Rotator Cuff Repair 17right 18RT Tendon Repair 19right side 20RT Wrist Surgery- Frzn wrist- 2 screws Social History Social History Type Response Sex Male Patient Care team information Personnel Name: Carlos Enrique Obando MD Address: Address: [address] [place] [address]
--- OUTSIDE RECORDS SUMMARY | 2024-11-23 00:11 | XMS_ITS | Encounter Summary ---
Author Organization [facility] Address [address] [place] [address] Phone Care Team Providers Care Retail Account Representative Name Role Phone Provider, None Primary Care Provider Unavailabl e Encounter Details Date Type Department Care Team (Late st Contact Info) Description 11/27/2019 Transcribe Orders [facility] [address] [place] [address] Leonard Jasso, ANGIE [address] [place] [id number] custodial (current) use of antibiotics (Primary Dx) Social History Tobacco Use Types Packs/Day Years Used Date Smoking Tobacco: Never Assessed Sex and Gender Information Value Date Recorded Sex Assigned at Not on file Legal Sex Male 4:33 PM TRANSPORTATION MODELER Gender Identity Not on file Sexual Orientation Not on file documented as of this encounter Plan of Treatment Not on file documented as of this encounter Results * (ABNORMAL) CMP (COMPREHENSIVE METABOLIC PANEL) (11/27/2019 8:45 AM TRANSPORTATION MODELER) SODIUM 139 136 - 145 mmol/L 11/27/2019 4:26 PM TRANSPORTATION MODELER [facility] POTASSIUM 4.2 3.5 - 5.1 mmol/L 11/27/2019 4:26 PM TRANSPORTATION MODELER [facility] CHLORIDE 106 98 - 107 mmol/L 11/27/2019 4:26 PM TRANSPORTATION MODELER [facility] CO2, VENOUS 25 22 - 30 mmol/L 11/27/2019 4:26 PM TRANSPORTATION MODELER [facility] ANION GAP 8.0 <18.0 mmol/L 11/27/2019 4:26 PM [facility] GLUCOSE 107(H) 70 - 99 mg/dL 11/27/2019 4:26 PM [facility] BUN 12 8 - 26 mg/dL 11/27/2019 4:26 PM [facility] CREATININE, BLOOD 0.85 0.70 - 1.30 mg/dL 11/27/2019 4:26 PM [facility] BUN/CREATININE RATIO 14 12 - 20 ratio 11/27/2019 4:26 PM [facility] TOTAL PROTEIN 7.1 6.3 - 8.2 g/dL 11/27/2019 4:26 PM [facility] ALBUMIN 4.1 3.5 - 5.0 g/dL 11/27/2019 4:26 PM [facility] A/G RATIO 1.4 1.0 - 2.2 11/27/2019 4:26 PM [facility] CALCIUM 8.9(L) 9.1 - 10.5 mg/dL 11/27/2019 4:26 PM [facility] T BILI 0.5 0.2 - 1.2 mg/dL 11/27/2019 4:26 PM [facility] SGOT (AST) 28 5 - 34 U/L 11/27/2019 4:26 PM [facility] SGPT (ALT) 26 0 - 55 U/L 11/27/2019 4:26 PM [facility] ALKALINE PHOSPHATASE 77 40 - 150 U/L 11/27/2019 4:26 PM [facility] GFR, EST. NONAFRICAN >60 >=60 11/27/2019 4:26 PM [facility] GFR, EST. >60 >=60 11/27/2019 4:26 PM [facility] Comment: Creatinine Clearance is the preferred criteria for selecting drug dose adjustments in renally impaired patients. ??The GFR is provided as additional pertinent clinical information. GFR is reported in mL/min/1.73 sq m. Blood specimen (specimen) No Phlebotomy Charged / Unknown 11/27/2019 8:45 AM TRANSPORTATION MODELER 11/27/2019 3:45 PM TRANSPORTATION MODELER Leonard Jasso APRN CHEMISTRY ORDERABLES Fi nal Result Performing Organization Address [facility] Co de Phone Number [address] [address], [place] [phone] * VANCOMYCIN TROUGH (11/27/2019 8:45 AM TRANSPORTATION MODELER) VANCOMYCIN, TROUGH 16 10 - 20 mcg/mL 11/27/2019 4:26 PM TRANSPORTATION MODELER [facility] Blood specimen (specimen) No Phlebotomy Charged / Unknown 11/27/2019 8:45 AM TRANSPORTATION MODELER 11/27/2019 3:45 PM TRANSPORTATION MODELER Leonard Jasso APRN CHEMISTRY ORDERABLES Fi nal Result Performing Organization Address [facility] de Phone Number [address] [place] [address], [place] [phone] documented in this encounter Visit Diagnoses Diagnosis custodial (current) use of antibiotics- Primary documented in this encounter Care Teams Retail Account Representative Relationship Specialty Start Date End Date Provider, None [place] PCP - General 11/27/19 documented as of this encounter
--- OUTSIDE RECORDS SUMMARY | 2024-11-23 00:11 | XMS_ITS | Encounter Summary ---
Author Organization [employer] Care Team Providers Care De Icer Kit Assembler Name Role Phone Provider, None Primary Care Provider Unavailabl e Encounter Details Date Type Department Care Team (Latest Contact Info) Description 11/27/2019 Travel Social History Tobacco Use Types Packs/Day Years Used Date Smoking Tobacco: Never Assessed Sex and Gender Information Value Date Recorded Sex Assigned at Not on file Legal Sex Male 4:33 PM SIFTER OPERATOR Gender Identity Not on file Sexual Orientation Not on file documented as of this encounter Plan of Treatment Not on file documented as of this encounter Visit Diagnoses Not on filedocumented in this encounter Care Teams De Icer Kit Assembler Relationship Specialty Start Date End Date Provider, None [place] PCP - General 11/27/19 documented as of this encounter
--- OUTSIDE RECORDS SUMMARY | 2024-11-23 00:11 | XMS_ITS | Encounter Summary ---
Author Organization [facility] Address [address] [place] [address] Phone Care Team Providers Care Vehicle And Equipment Cleaner Name Role Phone Provider, Not On File Primary Care Provider Unav ailable Provider, None Primary Care Provider Unavailabl e Encounter Details Date Type Department Care Team (Late st Contact Info) Description 11/17/2019 Lab Requisition [facility] [address] [place] [id number] Leonard Jasso, ANGIE [address] [place] [id number] Other chronic osteomyelitis, right tibia and fibula (HCC) Social History Tobacco Use Types Packs/Day Years Used Date Smoking Tobacco: Never Assessed Sex and Gender Information Value Date Recorded Sex Assigned at Not on file Legal Sex Male 4:33 PM SHOE REPAIRER Gender Identity Not on file Sexual Orientation Not on file documented as of this encounter Plan of Treatment Not on file documented as of this encounter Procedures Procedure Name Priority Date/Time Associated Diagnosis Comments CBC WITH AUTO DIFFERENTIAL Routine 11/17/2019 10:43 AM SHOE REPAIRER Other chronic osteomyelitis, right tibia and fibula (HCC) VANCOMYCIN TROUGH Routine 11/17/2019 10: 43 AM SHOE REPAIRER Other chronic osteomyelitis, right tibia and fibula (HCC) CMP (COMPREHENSIVE METABOLIC PANEL) Routine 11/17/2019 10:43 AM SHOE REPAIRER Other chronic osteomyelitis, right tibia and fibula (HCC) COMPLETE BLOOD COUNT (CBC) WITH DIFF Routine 11/17/2019 10:43 AM SHOE REPAIRER Other chronic osteomyelitis, right tibia and fibula (HCC) documented in this encounter Results * CBC WITH AUTO DIFFERENTIAL (11/17/2019 10:43 AM SHOE REPAIRER) WBC 8.05 4.00 - 12.00 10(3)/mcL 11/17/2019 12:18 PM [facility] RBC 5.02 4.40 - 5.80 10(6)/mcL 11/17/2019 12:18 PM [facility] HEMOGLOBIN (HGB) 15.2 13.0 - 16.5 g/dL 11/17/2019 12:18 PM [facility] HEMATOCRIT (HCT) 45.5 38.0 - 50.0 % 11/17/2019 12:18 PM [facility] MCV 90.6 82.0 - 96.0 fL 11/17/2019 12:18 PM [facility] MCH 30.3 26.0 - 32.0 pg 11/17/2019 12:18 PM [facility] MCHC 33.4 31.0 - 36.0 g/dL 11/17/2019 12:18 PM [facility] PLATELET COUNT 210 140 - 440 10(3)/mcL 11/17/2019 12:18 PM [facility] RDW 13.0 11.8 - 15.5 % 11/17/2019 12:18 PM [facility] MPV 10.2 8.0 - 12.6 fL 11/17/2019 12:18 PM [facility] NEUTROPHILS 63.7 40.0 - 68.0 % 11/17/2019 12:18 PM [facility] LYMPHOCYTES 23.9 19.0 - 49.0 % 11/17/2019 12:18 PM [facility] MONOCYTES 9.6 3.0 - 13.0 % 11/17/2019 12:18 PM [facility] EOSINOPHILS 2.7 0.0 - 8.0 % 11/17/2019 12:18 PM [facility] BASOPHILS 0.1 0.0 - 1.0 % 11/17/2019 12:18 PM SHOE REPAIRER [facility] ABSOLUTE NEUTROPHILS 5.13 1.40 - 5.30 10(3)/mcL 11/17/2019 12:18 PM SHOE REPAIRER [facility] ABSOLUTE LYMPHOCYTES 1.92 0.90 - 3.30 10(3)/mcL 11/17/2019 12:18 PM SHOE REPAIRER [facility] ABSOLUTE MONOCYTES 0.77 0.10 - 0.90 10(3)/mcL 11/17/2019 12:18 PM SHOE REPAIRER [facility] ABSOLUTE EOSINOPHIL 0.22 0.00 - 0.50 10(3)/[facility] 11/17/2019 12:18 PM SHOE REPAIRER [facility] ABSOLUTE BASOPHILS 0.01 0.00 - 0.10 10(3)/mcL 11/17/2019 12:18 PM SHOE REPAIRER [facility] Blood specimen (specimen) No Phlebotomy Charged / Unknown 11/17/2019 10:43 AM SHOE REPAIRER 11/17/2019 12:06 PM SHOE REPAIRER Leonard Jasso APRN HEMATOLOGY ORDERABLES F inal Result Performing Organization Address City/[facility]/ZIP Co de Phone Number [address] [address], [place] * VANCOMYCIN TROUGH (11/17/2019 10:43 AM SHOE REPAIRER) VANCOMYCIN, TROUGH 12 10 - 20 mcg/mL 11/17/2019 12:40 PM SHOE REPAIRER [facility] Blood specimen (specimen) No Phlebotomy Charged / Unknown 11/17/2019 10:43 AM SHOE REPAIRER 11/17/2019 12:06 PM SHOE REPAIRER Leonard Jasso SYSTEMS ADMINISTRATOR CHEMISTRY ORDERABLES Fi nal Result Performing Organization Address [facility]/ZIP Co de Phone Number [address] [address], [place] * (ABNORMAL) CMP (COMPREHENSIVE METABOLIC PANEL) (11/17/2019 10:43 AM [facility]) SODIUM 137 136 - 145 mmol/L 11/17/2019 12:42 PM [facility] POTASSIUM 4.2 3.5 - 5.1 mmol/L 11/17/2019 12:42 PM [facility] CHLORIDE 105 98 - 107 mmol/L 11/17/2019 12:42 PM [facility] CO2, VENOUS 22 22 - 30 mmol/L 11/17/2019 12:42 PM [facility] ANION GAP 10.0 <18.0 mmol/L 11/17/2019 12:42 PM [facility] GLUCOSE 194(H) 70 - 99 mg/dL 11/17/2019 12:42 PM [facility] BUN 11 8 - 26 mg/dL 11/17/2019 12:42 PM [facility] CREATININE, BLOOD 0.91 0.70 - 1.30 mg/dL 11/17/2019 12:42 PM [facility] BUN/CREATININE RATIO 12 12 - 20 ratio 11/17/2019 12:42 PM [facility] TOTAL PROTEIN 8.1 6.3 - 8.2 g/dL 11/17/2019 12:42 PM [facility] ALBUMIN 4.2 3.5 - 5.0 g/dL 11/17/2019 12:42 PM [facility] A/G RATIO 1.1 1.0 - 2.2 11/17/2019 12:42 PM [facility] CALCIUM 9.3 9.1 - 10.5 mg/dL 11/17/2019 12:42 PM [facility] T BILI 0.7 0.2 - 1.2 mg/dL 11/17/2019 12:42 PM [facility] SGOT (AST) 37(H) 5 - 34 U/L 11/17/2019 12:42 PM [facility] SGPT (ALT) 42 0 - 55 U/L 11/17/2019 12:42 PM [facility] ALKALINE PHOSPHATASE 89 40 - 150 U/L 11/17/2019 12:42 PM SHOE REPAIRER [facility] GFR, EST. NONAFRICAN >60 >=60 11/17/2019 12:42 PM SHOE REPAIRER [facility] GFR, EST. >60 >=60 11/17/2019 12:42 PM SHOE REPAIRER [facility] Comment: Creatinine Clearance is the preferred criteria for selecting drug dose adjustments in renally impaired patients. ??The GFR is provided as additional pertinent clinical information. GFR is reported in mL/min/1.73 sq m. Blood specimen (specimen) No Phlebotomy Charged / Unknown 11/17/2019 10:43 AM SHOE REPAIRER 11/17/2019 12:06 PM SHOE REPAIRER us Leonard Jasso SYSTEMS ADMINISTRATOR CHEMISTRY ORDERABLES Fi nal Result [facility] [address] [place] [address], documented in this encounter Visit Diagnoses Diagnosis Other chronic osteomyelitis, right tibia and fibula (HCC) documented in this encounter Care Teams Vehicle And Equipment Cleaner Relationship Specialty Start Date End Date Provider, Not On File [place] PCP - General 11/06/19 11/26/19 Provider, None [place] PCP - General 11/27/19 documented as of this encounter
--- OUTSIDE RECORDS SUMMARY | 2024-11-23 00:11 | XMS_ITS | Encounter Summary ---
Author Organization [facility] Address [address] [place] [address] Phone Care Team Providers Care Professor Of Vegetable Science Name Role Phone Provider, Not On File Primary Care Provider Unav ailable Provider, None Primary Care Provider Unavailabl e Encounter Details Date Type Department Care Team (Late st Contact Info) Description 11/22/2019 Lab Requisition [facility] [address] [place] [id number] Hardy Magdaleno MD [address] [place] [address] Social History Tobacco Use Types Packs/Day Years Used Date Smoking Tobacco: Never Assessed Sex and Gender Information Value Date Recorded Sex Assigned at Not on file Legal Sex Male 4:33 PM INSTRUMENT AND ELECTRICAL TECHNICIAN Gender Identity Not on file Sexual Orientation Not on file documented as of this encounter Plan of Treatment Not on file documented as of this encounter Procedures Procedure Name Priority Date/Time Associated Diagnosis Comments CBC WITH AUTO DIFFERENTIAL Routine 11/22/2019 8:40 AM INSTRUMENT AND ELECTRICAL TECHNICIAN VANCOMYCIN TROUGH Routine 11/22/2019 8:4 0 AM INSTRUMENT AND ELECTRICAL TECHNICIAN CMP (COMPREHENSIVE METABOLIC PANEL) Routine 11/22/2019 8:40 AM INSTRUMENT AND ELECTRICAL TECHNICIAN COMPLETE BLOOD COUNT (CBC) WITH DIFF Routine 11/22/2019 8:40 AM INSTRUMENT AND ELECTRICAL TECHNICIAN documented in this encounter Results * CBC WITH AUTO DIFFERENTIAL (11/22/2019 8:40 AM INSTRUMENT AND ELECTRICAL TECHNICIAN) WBC 7.66 4.00 - 12.00 10(3)/mcL 11/22/2019 11:17 AM [facility] RBC 5.36 4.40 - 5.80 10(6)/mcL 11/22/2019 11:17 AM [facility] HEMOGLOBIN (HGB) 16.1 13.0 - 16.5 g/dL 11/22/2019 11:17 AM [facility] HEMATOCRIT (HCT) 48.5 38.0 - 50.0 % 11/22/2019 11:17 AM [facility] MCV 90.5 82.0 - 96.0 fL 11/22/2019 11:17 AM [facility] MCH 30.0 26.0 - 32.0 pg 11/22/2019 11:17 AM [facility] MCHC 33.2 31.0 - 36.0 g/dL 11/22/2019 11:17 AM [facility] PLATELET COUNT 221 140 - 440 10(3)/mcL 11/22/2019 11:17 AM [facility] RDW 13.0 11.8 - 15.5 % 11/22/2019 11:17 AM [facility] MPV 10.3 8.0 - 12.6 fL 11/22/2019 11:17 AM [facility] NEUTROPHILS 59.9 40.0 - 68.0 % 11/22/2019 11:17 AM [facility] LYMPHOCYTES 26.1 19.0 - 49.0 % 11/22/2019 11:17 AM [facility] MONOCYTES 9.7 3.0 - 13.0 % 11/22/2019 11:17 AM [facility] EOSINOPHILS 4.0 0.0 - 8.0 % 11/22/2019 11:17 AM [facility] BASOPHILS 0.3 0.0 - 1.0 % 11/22/2019 11:17 AM [facility] ABSOLUTE NEUTROPHILS 4.59 1.40 - 5.30 10(3)/mcL 11/22/2019 11:17 AM [facility] ABSOLUTE LYMPHOCYTES 2.00 0.90 - 3.30 10(3)/mcL 11/22/2019 11:17 AM INSTRUMENT AND ELECTRICAL TECHNICIAN [facility] ABSOLUTE MONOCYTES 0.74 0.10 - 0.90 10(3)/mcL 11/22/2019 11:17 AM INSTRUMENT AND ELECTRICAL TECHNICIAN [facility] ABSOLUTE EOSINOPHIL 0.31 0.00 - 0.50 10(3)/[facility] 11/22/2019 11:17 AM INSTRUMENT AND ELECTRICAL TECHNICIAN [facility] ABSOLUTE BASOPHILS 0.02 0.00 - 0.10 10(3)/[facility] 11/22/2019 11:17 AM INSTRUMENT AND ELECTRICAL TECHNICIAN [facility] Blood specimen (specimen) No Phlebotomy Charged / Unknown 11/22/2019 8:40 AM INSTRUMENT AND ELECTRICAL TECHNICIAN 11/22/2019 11:00 AM INSTRUMENT AND ELECTRICAL TECHNICIAN Hardy Magdaleno MD HEMATOLOGY ORDERABLES Fin al Result Performing Organization Address [facility] [place] [address], [place] * VANCOMYCIN TROUGH (11/22/2019 8:40 AM INSTRUMENT AND ELECTRICAL TECHNICIAN) Pathologist [facility] VANCOMYCIN, TROUGH 13 10 - 20 mcg/mL 11/22/2019 11:50 AM [facility] Blood specimen (specimen) No Phlebotomy Charged / Unknown 11/22/2019 8:40 AM INSTRUMENT AND ELECTRICAL TECHNICIAN 11/22/2019 11:00 AM INSTRUMENT AND ELECTRICAL TECHNICIAN Hardy Magdaleno MD CHEMISTRY ORDERABLES Veronica l Result [place] [id number], [place] * (ABNORMAL) CMP (COMPREHENSIVE METABOLIC PANEL) (11/22/2019 8:40 AM INSTRUMENT AND ELECTRICAL TECHNICIAN) SODIUM 140 136 - 145 mmol/L 11/22/2019 11:53 AM [facility] POTASSIUM 4.2 3.5 - 5.1 mmol/L 11/22/2019 11:53 AM [facility] CHLORIDE 103 98 - 107 mmol/L 11/22/2019 11:53 AM [facility] CO2, VENOUS 25 22 - 30 mmol/L 11/22/2019 11:53 AM [facility] ANION GAP 12.0 <18.0 mmol/L 11/22/2019 11:53 AM [facility] GLUCOSE 119(H) 70 - 99 mg/dL 11/22/2019 11:53 AM [facility] BUN 17 8 - 26 mg/dL 11/22/2019 11:53 AM [facility] CREATININE, BLOOD 0.94 0.70 - 1.30 mg/dL 11/22/2019 11:53 AM [facility] BUN/CREATININE RATIO 18 12 - 20 ratio 11/22/2019 11:53 AM [facility] TOTAL PROTEIN 7.9 6.3 - 8.2 g/dL 11/22/2019 11:53 AM [facility] ALBUMIN 4.3 3.5 - 5.0 g/dL 11/22/2019 11:53 AM [facility] A/G RATIO 1.2 1.0 - 2.2 11/22/2019 11:53 AM [facility] CALCIUM 9.5 9.1 - 10.5 mg/dL 11/22/2019 11:53 AM [facility] T BILI 0.5 0.2 - 1.2 mg/dL 11/22/2019 11:53 AM [facility] SGOT (AST) 30 5 - 34 U/L 11/22/2019 11:53 AM [facility] SGPT (ALT) 43 0 - 55 U/L 11/22/2019 11:53 AM [facility] ALKALINE PHOSPHATASE 94 40 - 150 U/L 11/22/2019 11:53 AM [facility] GFR, EST. NONAFRICAN >60 >=60 11/22/2019 11:53 AM [facility] GFR, EST. >60 >=60 11/22/2019 11:53 AM INSTRUMENT AND ELECTRICAL TECHNICIAN [facility] Comment: Creatinine Clearance is the preferred criteria for selecting drug dose adjustments in renally impaired patients. ??The GFR is provided as additional pertinent clinical information. GFR is reported in mL/min/1.73 sq m. Blood specimen (specimen) No Phlebotomy Charged / Unknown 11/22/2019 8:40 AM INSTRUMENT AND ELECTRICAL TECHNICIAN 11/22/2019 11:00 AM INSTRUMENT AND ELECTRICAL TECHNICIAN us Hardy Magdaleno MD CHEMISTRY ORDERABLES Veronica l Result [facility] [address] [place] [address], documented in this encounter Visit Diagnoses Not on filedocumented in this encounter Care Teams Professor Of Vegetable Science Relationship Specialty Start Date End Date Provider, Not On File [place] PCP - General 11/06/19 11/26/19 Provider, None [place] PCP - General 11/27/19 documented as of this encounter
--- OUTSIDE RECORDS SUMMARY | 2024-11-23 00:11 | XMS_ITS | Encounter Summary ---
Author Organization [facility] Address [address] [place] [address] Phone Care Team Providers Care Rehab Assistant Name Role Phone Provider, Not On File Primary Care Provider Unav ailable Reason for Visit * Auth/Cert Specialty Diagnoses / Procedures Referred By Celine almaguer Referred To Contact Referral ID Status Reason Start Date Expiration Date Visits Re quested Visits Authorized [id number] 1 1 Encounter Details Date Type Department Care Team ([facility] Contact Info) Description 11/22/2019 Home Care Visit [facility] [address] [place] [address] Pushpa Vela V, RN [place] SN - LAB Social History Tobacco Use Types Packs/Day Years Used Date Smoking Tobacco: Never Assessed Sex and Gender Information Value Date Recorded Sex Assigned at Not on file Legal Sex Male 4:33 PM CONSTRUCTION SECRETARY Gender Identity Not on file Sexual Orientation Not on file documented as of this encounter Last Filed Vital Signs Vital Sign Reading Time Taken Comments Blood Pressure 120/64 11/22/2019 8:30 AM CONSTRUCTION SECRETARY Pulse 80 11/22/2019 8:30 AM CONSTRUCTION SECRETARY Temperature 36.1 ??C (97 ??F) 11/22/2019 8:30 AM CONSTRUCTION SECRETARY Respiratory Rate 20 11/22/2019 8:30 AM CONSTRUCTION SECRETARY Oxygen Saturation 98% 11/22/2019 8:30 AM CONSTRUCTION SECRETARY Inhaled Oxygen Concentration - - Weight - - Height - - Body Mass Index - - documented in this encounter Plan of Treatment Not on file documented as of this encounter Visit Diagnoses Not on filedocumented in this encounter Home Health Visit - Care Plan Visit Details Visit Type -SN - Lab Discipline -Group Home Problems Problem Description Start Date Status Goals Interve ntions FALL PREVENTION (O) Disciplines: Group Home, Physical Therapy, Occupational Therapy, Speech Language Pathology, Equipment Mechanic Specialist, Medical Social Work 11/07/2019 Active 1 goal linked to scheduled/docume nted intervention 1 goal intervention scheduled/documen lobito in this visit HC CARE SUMMARY Disciplines: Group Home, Physical Therapy, Occupational Therapy, Speech Language Pathology, Medical Social Work, Licensed Practical Nurse, Respiratory Therapy Care Summary 11/07/2019 Active 1 goal linked to scheduled/docume nted intervention 1 goal intervention scheduled/documen lobito in this visit WOUND CARE EDUCATION Disciplines: Group Home Wound Care Education 11/07/2019 Active - 2 problem interventions scheduled/documen lobito in this visit WOUND CARE ORDERS(O) Disciplines: Group Home Wound Care Orders 11/07/2019 Active 1 goal linked to scheduled/docume nted intervention 1 goal intervention scheduled/documen lobito in this visit SN LAB ORDER Disciplines: Group Home SN Lab Order 11/07/2019 Active - 1 problem intervention scheduled/documen lobito in this visit HC IV EDUCATION Disciplines: Group Home IV Education 11/07/2019 Active - 1 problem intervention scheduled/documen lobito in this visit CVC TUNNELED/NON TUNNELED/PICC Disciplines: Group Home CVC Tunneled/Non-Benigno neled/PICC 11/07/2019 Active 1 goal linked to scheduled/docume nted intervention 1 goal intervention scheduled/documen lobito in this visit HC CVC TUNNELED/NON-TUNN ELED/PICC CARE Disciplines: Group Home CVC Tunneled/Non-Benigno neled/PICC Care 11/07/2019 Active - 2 problem interventions scheduled/documen lobito in this visit HC SN MEDICATION Disciplines: Group Home SN Medication 11/07/2019 Active - 2 problem interventions scheduled/documen lobito in this visit SN SOC GENERAL ORDERS Disciplines: Group Home SN General Orders 11/07/2019 Active 1 goal linked to scheduled/docume nted intervention 2 goal interventions scheduled/documen lobito in this visit Goals Goal [...] by discharge WOUND CARE ORDERS(O) No HC CVC Tunneled/Non Tunneled/PICC Description: 1. Patient and spouse will verbalize knowledge of potential adverse effects of infusion therapy, signs and symptoms to report and appropriate actions to take. 2. Patient or spouse will demonstrate ability to maintain patent and intact parenteral access device including understanding of appropriate infection control measures. 3.Patient and Caregiver-spouse will demonstrate independence in administration of Vancomycin. 4. Patient will remain free from vascular access device related infection, and from signs and symptoms of phlebitis. Target date: by discharge CVC TUNNELED/NON TUNNELED/PICC No HC SN General Description: After assessing [...] by discharge SN SOC GENERAL ORDERS No Interventions Intervention Associated Problem/Goal Status Variance Visit Notes Fall (Order Only) Description: Shared intervention applicable to all disciplines with a visit frequency order. Instruct patient/caregiver on fall prevention measures. Problem:FALL PREVENTION (O) Goal:HC Fall Prevention Completed Is patient/caregiver following fall prevention recommendations as instructed? Yes Instruction provided to Patient Response verbalize understanding Care Summary Description: Document summary of care provided, plan for next visit and continued treatment needs. Document progress toward goals in outcomes. Problem:HC CARE SUMMARY Goal:Care Summary Completed Care summary for Nursing. Summary of care Assessment performed and vital signs recorded. SN changed picc line dressing, patient tolerated well. SN samuel labs, patient tolerated well. Wound vac dressing changed, patient tolerated fair. Patient c/o high pain level when wound is touched. Patient reports pain medication is effective. No new concerns reported. Instructed patient to call homecare with any questions or concerns. Discussed SN visit schedule, patient verbalizes agreement with plan of care. SMART goal I want my wound to be smaller next week. Plan for next visit Assessment Plan of care updates completed and provided to patient/caregiver: No, no updates today Wound Education - NPWT Problem:WOUND CARE EDUCATION Completed Patient instructed on: Purpose of Negative Pressure Wound Therapy (NPWT). Signs and symptoms to report-including the risk of bleeding and how to monitor for signs of jennifer bleeding in the canister and how to stop the machine and contact 911 should this occur. Patient instructed on process and agrees to remove all NWPT packing and apply a saline moistened gauze dressing if the NPWT seal is lost and the wound will be without suction for more than 2 hours - NPWT foam . Number of pieces of packing in wound will be documented on dressing. Reference this number when removing packing and report if any packing materials cannot be removed immediately. Instruction provided to Patient. Response verbalize understanding. Is wound less than 2.25 cm in diameter (length x width)? No (If yes, consider WOCN/WTA consultation for alternative wound treatment recommendations.) Wound Education - All Wounds Problem:WOUND CARE EDUCATION Completed Patient instructed on wound care including signs and symptoms to report, packing safety, wound care procedure. Agrees to perform wound treatment as ordered on non-visit days. Instruction provided to Patient. Response verbalize understanding. Wound Care NPWT Foam (Order Only) Description: Wound Number: 1 Location: right lateral ankle. Wound Care Order to be [...] ordered. Problem:WOUND CARE ORDERS(O) Goal:HC Wound Care Completed Wound #: 1, Location: right lateral ankle. Removed: FoamDressing Cleansed with wound cleanser. Packed with black foam. Dressing applied non adherent contact layer. Covered with transparent film dressing. Seal obtained yes. Suction settinmmHg. Number of pieces of NPWT black foam packed into wound: 2 Number of pieces of non-adherent contact layer packed into wound: 0 Patient Tolerance: well. SN Obtain Lab Specimen Line Draw (Order Only) Description: SN to draw CBC w diff, CMP, Vanco trough from picc line. Draw on (date): weekly on . Result to Leonard Jasso NP. Hardy Magdaleno MD to sign orders. CC results to N/A. Flush with 10 ml 0.9% saline before blood draw and 20 ml0.9% saline after blood draw. Final flush with 5 mL of 10 unit per ml heparin. If unable to obtain specimen from line, may perform venipuncture. Problem:SN LAB ORDER Completed Labs Drawn: CBC w diff, Cmp, vanco trough. Blood drawn from RAC. Specimen taken to [facility]. IV Education- Infection/ Phlebitis Prevention Problem:HC IV EDUCATION Completed Instructed on infection control measures: wash hands, care and storage of equipment, aseptic technique, proper waste disposal. Tube must remain secured. Dressing to be changed weekly, or if loose or soiled. Instruction provided to Patient. Response verbalize understanding. Tunneled/Non-Tunneled PICC (Order Only) Description: CVC care orders for PICC, tunneled and Non-tunneled catheters: Patient has a(n) Valved double lumen, PICC. Skilled Nurse or Patient and Caregiver-spouse to administer infusion as ordered. Skilled Nurse to instruct Patient and Caregiver-spouse on infusion therapy, administration of: Vancomycin, infection control measures and signs and symptoms [...] Problem:CVC TUNNELED/NON TUNNELED/PICC Goal:HC CVC Tunneled/Non Tunneled/PICC Completed double lumen PICC catheter placement confirmed with blood return by SN in purple and red lumen(s). Blood return obtained no. If no: Called and spoke with pharmacist at [facility], he reports that he will check to see if patient's insurance covers cathflo. He states that he will speak with pcp regarding this. ROUTINE FLUSH FOR PATENCY SN flushed purple and red lumen(s) with 10 ml Normal Saline to maintain patency. HEPARIN LOCK SN flushed purple lumen(s) with 5 ml of 10 unit per ml heparin. Red lumen hooked up to IV atb. CVC Dressing Change Problem:HC CVC TUNNELED/NON-TUNNEL ED/PICC CARE Completed CVC site care performed today by SN. Cleansed site with chloraPrep using aseptic technique. PRN items used antimicrobial disc - Biopatch. Dressing applied transparent film. Secured with netting. Next dressing change due on 11/29/19. CVC Cap Change Problem:HC CVC TUNNELED/NON-TUNNEL ED/PICC CARE Completed Cap changed today. To purple and red lumen(s). Changed by SN. Next cap change due on 11/29/19. Medication Review/Education Problem:[facility] MEDICATION Completed Medication reconciliation performed. Needs/changes identified: none New major medication interactions or any symptomatic interactions identified: none Medication instructions provided for the following med(s): oxycodone, glycolax, oxycodone-including: reason for use, evaluation of effectiveness, side effects, frequency and dose Instruction provided to Patient Method of instruction verbal Response verbalize understanding High Risk Med Safety Education- Pain Medication Problem:[facility] MEDICATION Completed Patient takes pain medication Oxycodone. Assess Sedation Scale: 1 - awake/alert, Instructed on side effects and adverse reactions including: Respiratory Distress, Respiratory Depression, Sedation, Itching, Rash, Nausea, Vomiting, Dizziness, Constipation, Difficulty voiding, and New Confusion. Contact nurse or physician regarding any side effects or uncontrolled pain. If respiratory distress or depression, or severe sedation home health- call . To avoid potential interactions, take only medications that have been approved by your physician. Instruction provided to Patient. Method of instruction verbal. Response verbalize understanding General Nursing Plan of Care (Order Only) Description: Admission Certification: 64 y.o male admitted to Home Care Services for nursing. Estimation of how long skilled services will be required 60 days. Face to Face encounter occurred on --- with ---. Dr. Leonard Jasso, METAL SHEET ROLLER OPERATOR, contacted and agrees with plan of care. Clinical findings: Patient had surgery on 11/01/19 at [facility] due to osteomyelitis of right ankle. Patient reports this is the third time he has gone through this surgery. Patient has surgical wound to the ankle. Patient has wound vac. Patient has picc line to left upper arm, which he is receiving Vancomycin twice daily. Patient's spouse is able to administer medication. Patient's pain is tolerable, he does take pain medication as needed. Patient's spouse assists patient with adl's and iadl's. Patient ambulates independently. Skilled Nurse Focus: Wound care, IV medication teaching, weekly labs, pain medication, home safety. Physical Therapy to evaluate and treat for: Eval due to wewakness. Occupational Therapy to evaluate and treat for: Assist with adl's and iadl's. Speech Therapy to evaluate and treat for: Not needed. Social Work Focus: Not needed. Equipment Mechanic Specialist to provide: Not needed. Past Medical History: Osteomyelitis of right ankle. Other contributing issues: Lives with supportive family. Skilled Nurse to instruct patient/ caregiver on [...] patient. Homebound Criteria 1- Patient has illness/injury: osteomyelitis, and needs/has: medical contraindication due to immunosuppression/idania us risk of infection Homebound Criteria 2- Inability to leave the home and leaving the home requires a taxing and considerable effort due to: leaving home exacerbates symptoms anxiety and fatigue Patient has the following structural impairments: Structures related to movement Patient has the following functional impairments: Sensory functions and pain The patient's activity limitation affects the following: Mobility, Self-care and Domestic life Problem:SN SOC GENERAL ORDERS Goal: SN General Completed See documentation of progress [...] wound, and needs/has: medical contraindication due to infected/draining/comp licated wound Homebound Criteria 2- Inability to leave the home and leaving the home requires a taxing and considerable effort due to: leaving home exacerbates symptoms pain, anxiety and fatigue Additional Disease Management (O) Description: SN to monitor for signs and symptoms of exacerbation or complications of chronic osteomyelitis of right ankle. Problem:SN SOC GENERAL ORDERS Goal:HC SN General Completed Exacerbation/ complications noted at this visit: none documented in this encounter Care Teams Rehab Assistant Relationship Specialty Start Date End Date Provider, Not On File [place] PCP - General 11/06/19 11/26/19 documented as of this encounter
--- OUTSIDE RECORDS SUMMARY | 2024-11-23 00:11 | XMS_ITS | Encounter Summary ---
Author Organization [facility] Address [address] [place] [address] Phone Care Team Providers Care Protective Service Specialist Name Role Phone Provider, Not On File Primary Care Provider Unav ailable Reason for Visit * Auth/Cert Specialty Diagnoses / Procedures Referred By Celine almaguer Referred To Contact Referral ID Status Reason Start Date Expiration Date Visits Re quested Visits Authorized [id number] 1 1 Encounter Details Date Type Department Care Team ([facility] Contact Info) Description 11/24/2019 Home Care Visit [facility] [address] [place] [address] Pushpa Vela V, RN [place] SN - INTRAVENOUS VISIT Social History Tobacco Use Types Packs/Day Years Used Date Smoking Tobacco: Never Assessed Sex and Gender Information Value Date Recorded Sex Assigned at Not on file Legal Sex Male 4:33 PM TIRE MAN Gender Identity Not on file Sexual Orientation Not on file documented as of this encounter Last Filed Vital Signs Vital Sign Reading Time Taken Comments Blood Pressure 118/62 11/24/2019 9:21 AM TIRE MAN Pulse 82 11/24/2019 9:21 AM TIRE MAN Temperature 36.1 ??C (96.9 ??F) 11/24/2019 9:21 AM CS T Respiratory Rate 18 11/24/2019 9:21 AM TIRE MAN Oxygen Saturation 96% 11/24/2019 9:21 AM TIRE MAN Inhaled Oxygen Concentration - - Weight - - Height - - Body Mass Index - - documented in this encounter Plan of Treatment Not on file documented as of this encounter Visit Diagnoses Not on filedocumented in this encounter Home Health Visit - Care Plan Visit Details Visit Type -SN - Intravenous Visit Discipline -Care Home Problems Problem Description Start Date Status Goals Interve ntions FALL PREVENTION (O) Disciplines: Care Home, Physical Therapy, Occupational Therapy, Speech Language Pathology, Wrap Yarn Sorter, Medical Social Work 11/07/2019 Active 1 goal linked to scheduled/docume nted intervention 1 goal intervention scheduled/documen lobito in this visit HC CARE SUMMARY Disciplines: Care Home, Physical Therapy, Occupational Therapy, Speech Language Pathology, Medical Social Work, Licensed Practical Nurse, Respiratory Therapy Care Summary 11/07/2019 Active 1 goal linked to scheduled/docume nted intervention 1 goal intervention scheduled/documen lobito in this visit WOUND CARE EDUCATION Disciplines: Care Home Wound Care Education 11/07/2019 Active - 2 problem interventions scheduled/documen lobito in this visit WOUND CARE ORDERS(O) Disciplines: Care Home Wound Care Orders 11/07/2019 Active 1 goal linked to scheduled/docume nted intervention 1 goal intervention scheduled/documen lobito in this visit CVC TUNNELED/NON TUNNELED/PICC Disciplines: Care Home CVC Tunneled/Non-Benigno neled/PICC 11/07/2019 Active 1 goal linked to scheduled/docume nted intervention 1 goal intervention scheduled/documen lobito in this visit HC CVC TUNNELED/NON-TUNN ELED/PICC CARE Disciplines: Care Home CVC Tunneled/Non-Benigno neled/PICC Care 11/07/2019 Active - 2 problem interventions scheduled/documen lobito in this visit PAIN-MANAGEMENT/E DUCATION Disciplines: Care Home, Physical Therapy, Occupational Therapy, Speech Language Pathology 11/07/2019 Active 1 goal linked to scheduled/docume nted intervention 1 goal intervention scheduled/documen lobito in this visit HC SN MEDICATION Disciplines: Care Home SN Medication 11/07/2019 Active - 1 problem intervention scheduled/documen lobito in this visit SN SOC GENERAL ORDERS Disciplines: Care Home SN General Orders 11/07/2019 Active 1 [...] date: by discharge CVC TUNNELED/NON TUNNELED/PICC No Pain Management/Education Description: Shared goal applicable to all disciplines with visit frequency order. Patient's pain level will remain at an acceptable level of 5 or lower with current pain medications/interventions. Target date: by discharge PAIN-MANAGEMENT/EDUCATIO N No HC SN General Description: After assessing [...] Assessment performed and vital signs recorded. SN performed wound care as ordered, patient tolerated well. Patient c/o high level of pain to wound area, states that pain medication keeps pain controlled. Patient has an appointment on Wednesday with wound clinic. Instructed patient to call homecare with any questions or concerns. Discussed SN visit schedule, patient verbalizes agreement with plan of care. SMART goal I want my wound to be smaller on Wednesday. Plan for next visit Assessment Plan of [...] Wound Care Completed Wound #: 1, Location: Right lateral ankle. Removed: FoamDressing Cleansed with wound cleanser. Packed with black foam. Dressing applied non adherent contact layer. Covered with transparent film dressing. Seal obtained yes. Suction settinmmHg. Number of pieces of NPWT black foam packed into wound: 2 Number of pieces of non-adherent contact layer packed into wound: 0 Patient Tolerance: well. Tunneled/Non-Tunneled PICC (Order Only) Description: CVC care [...] TUNNELED/NON TUNNELED/PICC Goal:HC CVC Tunneled/Non Tunneled/PICC Scheduled with variance Not addressed at this visit CVC Dressing Change Problem:HC CVC TUNNELED/NON-TUNN ELED/PICC CARE Scheduled with variance Not addressed at this visit CVC Cap Change Problem:HC CVC TUNNELED/NON-TUNN ELED/PICC CARE Scheduled with variance Not addressed at this visit Pain Management/Education (Order Only) Description: Instruct patient/ caregiver on strategies to manage pain. Problem:PAIN-NIKHIL HAY/EDUCATION Goal:Pain Management/Educat ion Completed Pain management plan: 1. Set a realistic goal for the day. 2. Plan rest periods. 3. Do not wait until pain is severe before doing something to relieve it. 4. Take your medicine regularly as directed. 5. Perform exercises as instructed. 6. Do something that makes you feel productive each day. 7. Make contact with family and friends. 8. Try non drug methods such as massage, aromatherapy, relaxation, and deep breathing. 9. Relaxation/ Breathing instructions: Relaxation helps to decrease muscle tension and stress. Sit in a relaxed position and focus on breathing, close your eyes. Breathe deeply and slowly (not too deeply to avoid muscle tension). If needed, count while breathing to assist with focus. Instruction provided take pain medication before pain is severe. Instruction provided to Patient. Response verbalize understanding. Medication Review/Education Problem:HC SN MEDICATION Completed Medication reconciliation performed. Needs/changes identified: none New major medication interactions or any symptomatic interactions identified: none Medication instructions provided for the following med(s): cymbalta-including: reason for use, evaluation of effectiveness, frequency and dose Instruction provided to Patient Method of instruction verbal Response verbalize understanding General Nursing Plan of Care (Order Only) Description: Admission Certification: 64 y.o male admitted to Home Care Services for nursing. Estimation of how long skilled services will be required 60 days. Face to Face encounter occurred on --- with ---. Dr. Leonard Jasso, EXECUTIVE DIRECTOR SHELTERED WORKSHOP, contacted and agrees with plan of care. Clinical findings: Patient had surgery on 11/01/19 at [facility] due to osteomyelitis of right ankle. Patient [...] Not needed. Social Work Focus: Not needed. Wrap Yarn Sorter to provide: Not needed. Past Medical History: [...] osteomyelitis, and needs/has: medical contraindication due to immunosuppression/ser ious risk of infection Homebound Criteria 2- Inability [...] detail on Emergent Care form as indicated na Instructed patient to call [facility] [...] Reporting. Homebound Criteria 1- Patient has illness/injury: osteomyelitis, and needs/has: medical contraindication due to infected/draining/co mplicated wound Homebound Criteria 2- Inability to leave the home and leaving the home requires a taxing and considerable effort due to: leaving home exacerbates symptoms pain, anxiety and fatigue documented in this encounter Care Teams Protective Service Specialist Relationship Specialty Start Date End Date Provider, Not On File [place] PCP - General 11/06/19 11/26/19 documented as of this encounter
--- OUTSIDE RECORDS SUMMARY | 2024-11-23 00:11 | XMS_ITS | Encounter Summary ---
Author Organization [facility] Address [address] [place] [address] Phone Care Team Providers Care Slitter Helper Name Role Phone Provider, Not On File Primary Care Provider Unav ailable Reason for Visit * Auth/Cert Specialty Diagnoses / Procedures Referred By Celine almaguer Referred To Contact Referral ID Status Reason Start Date Expiration Date Visits Re quested Visits Authorized [id number] 1 1 Encounter Details Date Type Department Care Team (Latest Contact Info) Description 11/17/2019 9:00 AM EXTRUDER OPERATOR HELPER Home Care Visit [facility] [address] [place] [address] Vani Torrez RN [place] SN - INTRAVENOUS VISIT Social History Tobacco Use Types Packs/Day Years Used Date Smoking Tobacco: Never Assessed Sex and Gender Information Value Date Recorded Sex Assigned at Not on file Legal Sex Male 4:33 PM EXTRUDER OPERATOR HELPER Gender Identity Not on file Sexual Orientation Not on file documented as of this encounter Last Filed Vital Signs Vital Sign Reading Time Taken Comments Blood Pressure 118/78 11/17/2019 9:27 AM EXTRUDER OPERATOR HELPER Pulse 86 11/17/2019 9:27 AM EXTRUDER OPERATOR HELPER Temperature 36.6 ??C (97.8 ??F) 11/17/2019 9:27 AM CS T Respiratory Rate 18 11/17/2019 9:27 AM EXTRUDER OPERATOR HELPER Oxygen Saturation 98% 11/17/2019 9:27 AM EXTRUDER OPERATOR HELPER Inhaled Oxygen Concentration - - Weight - - Height - - Body Mass Index - - documented in this encounter Plan of Treatment Not on file documented as of this encounter Visit Diagnoses Not on filedocumented in this encounter Home Health Visit - Care Plan Visit Details Visit Type -SN - Intravenous Visit Discipline -Residential Problems Problem Description Start Date Status Goals Interve ntions FALL PREVENTION (O) Disciplines: Residential, Physical Therapy, Occupational Therapy, Speech Language Pathology, Hot Molder, Medical Social Work 11/07/2019 Active 1 goal linked to scheduled/docume nted intervention 2 goal interventions scheduled/documen lobito in this visit HC CARE SUMMARY Disciplines: Residential, Physical Therapy, Occupational Therapy, Speech Language Pathology, Medical Social Work, Licensed Practical Nurse, Respiratory Therapy Care Summary 11/07/2019 Active 1 goal linked to scheduled/docume nted intervention 1 goal intervention scheduled/documen lobito in this visit WOUND CARE EDUCATION Disciplines: Residential Wound Care Education 11/07/2019 Active - 2 problem interventions scheduled/documen lobito in this visit WOUND CARE ORDERS(O) Disciplines: Residential Wound Care Orders 11/07/2019 Active 1 goal linked to scheduled/docume nted intervention 1 goal intervention scheduled/documen lobito in this visit SN LAB ORDER Disciplines: Residential SN Lab Order 11/07/2019 Active - 1 problem intervention scheduled/documen lobito in this visit HC IV EDUCATION Disciplines: Residential IV Education 11/07/2019 Active - 3 problem interventions scheduled/documen lobito in this visit CVC TUNNELED/NON TUNNELED/PICC Disciplines: Residential CVC Tunneled/Non-Benigno neled/PICC 11/07/2019 Active 1 goal linked to scheduled/docume nted intervention 1 goal intervention scheduled/documen lobito in this visit HC CVC TUNNELED/NON-TUNN ELED/PICC CARE Disciplines: Residential CVC Tunneled/Non-Benigno neled/PICC Care 11/07/2019 Active - 2 problem interventions scheduled/documen lobito in this visit PAIN-MANAGEMENT/E DUCATION Disciplines: Residential, Physical Therapy, Occupational Therapy, Speech Language Pathology 11/07/2019 Active 1 goal linked to scheduled/docume nted intervention 1 goal intervention scheduled/documen lobito in this visit SN DISCHARGE Disciplines: Residential SN Discharge 11/07/2019 Active - 2 problem interventions scheduled/documen lobito in this visit HC SN MEDICATION Disciplines: Residential SN Medication 11/07/2019 Active - 2 problem interventions scheduled/documen lobito in this visit SN SOC GENERAL ORDERS Disciplines: Residential SN General Orders 11/07/2019 Active 1 goal linked to scheduled/docume nted intervention 2 goal interventions scheduled/documen lobito in this visit DEPRESSION Disciplines: Residential Depression Risk 11/13/2019 Active 1 goal linked to scheduled/docume nted [...] discharge SN SOC GENERAL ORDERS No HC Depression Description: Patient will verbalize understanding of depression self help measures. Target date: by discharge DEPRESSION No Interventions Intervention Associated Problem/Goal Status Variance Visit Notes Fall (Order Only) Description: Shared intervention applicable to all disciplines with a visit frequency order. Instruct patient/caregiver on fall prevention measures. Problem:FALL PREVENTION (O) Goal:HC Fall Prevention Completed Is patient/caregiver following fall prevention recommendations as instructed? Yes Instruction provided to Patient Response verbalize understanding and ongoing HC Fall Education Problem:FALL PREVENTION (O) Goal:HC Fall Prevention Completed Education provided regarding fall prevention: -Ask for assistance if needed -Wear glasses and hearing aids -Wear appropriate footwear when walking. -Use assistive device when ambulating: -Rise slowly and wait before walking. -Be aware of obstacles in your path (pets, oxygen tubing, cords, clutter, rugs) -Safety equipment needed in home: Reducing risk of medication related falls including: -Rise slowly -Monitor blood pressure -Report bleeding to prevent anemia -Weakness and dizziness -Do not mix pain medications unless advised to do so by your physician -Do not mix pain medications with alcohol. -Uncontrolled pain can cause weakness, difficulty ambulating. -Contact nurse or physician regarding any side effects of medication or uncontrolled pain. Additional Fall Education Provided: N/A Instruction provided to Patient. Method of instruction verbal. Response verbalize understanding and ongoing Care Summary Description: Document summary of care provided, plan for next visit and continued treatment needs. Document progress toward goals in outcomes. Problem:HC CARE SUMMARY Goal:Care Summary Completed Care summary for Nursing. Summary of care: Completed wound vac dressing change to right ankle, patient tolerated well. Picc line dressing change completed. Red and purple lumen flush well, no blood return. PRN heparin and NS utilized. Arian labs from right hand and took labs to [facility]. Vancomycin dose initiated. Called HIP and ordered supplies and notified of patient using last dose of Vancomycin. Medication reconciliation. Education; fall risk/prevention. SMART goal Wound will show signs of improvement at next visit. Plan for next visit; continued education. Wound care. Plan of care updates completed and provided to patient/caregiver: No, no updates today Wound Education - NPWT Problem:WOUND CARE EDUCATION Not addressed at this visit Wound Education - All Wounds Problem:WOUND CARE EDUCATION Not addressed at this visit Wound Care NPWT Foam (Order Only) Description: [...] Care Completed Wound #: 1, Location: right ankle Removed: FoamDressing and Packing: number of pieces: 2 Cleansed with wound cleanser. Packed with black foam. Covered with transparent film dressing. Secured with transparent film. PRN items used: none. Seal obtained yes. Suction settin. Number of pieces of NPWT black foam packed into wound: 1 Number of pieces of non-adherent contact layer packed into wound: none Patient Tolerance: well. SN Obtain Lab Specimen [...] LAB ORDER Completed Labs Drawn: CBC w Diff, CMP, Vanco trough Blood drawn from right hand. Specimen taken to [facility]. IV Education- Potential Complications and Signs and Symptoms Problem:HC IV EDUCATION Not addressed at this visit IV Education- Administration Procedure Problem:HC IV EDUCATION Not addressed at this visit IV Education- Infection/ Phlebitis Prevention Problem:HC IV EDUCATION Not addressed at this visit Tunneled/Non-Tunneled PICC (Order Only) Description: CVC care [...] Goal:HC CVC Tunneled/Non Tunneled/PICC Completed double lumen PowerPICC catheter placement confirmed with blood return by SN in purple and red lumen(s). Blood return obtained no. If no: Blood return not obtained in purple and red lumen(s). Dr. Jasso office notified. ROUTINE FLUSH FOR PATENCY SN flushed purple and red lumen(s) with 10 ml Normal Saline to maintain patency. PRN FLUSH SN. provided an extra flush to purple and red lumen with 10 ml Normal Saline. PRN flush was required to maintain patency. HEPARIN LOCK SN flushed purple and red lumen(s) with 5 ml of 10 unit per ml heparin. CVC Dressing Change Problem:HC CVC TUNNELED/NON-TUNNE LED/PICC CARE Completed CVC site care performed today by SN. Cleansed site with chloraPrep using aseptic technique. PRN items used antimicrobial disc - Biopatch. Dressing applied transparent film. Secured with tape. Next dressing change due on 11/24/2019. CVC Cap Change Problem:HC CVC TUNNELED/NON-TUNNE LED/PICC CARE Completed Cap changed today. To red and purple lumen(s). Changed by SN. Next cap change due on 11/17/2019 after infusion. Pain Management/Education (Order Only) Description: Instruct patient/ caregiver on strategies to manage pain. Problem:PAIN-MANAG EMENT/EDUCATION Goal:Pain Management/Educati on Not addressed at this visit Notice Of Discharge Description: Complete Notice of Discharge documentation three days prior to agency discharge. Problem:SN DISCHARGE Not ordered today SN Discharge Problem:SN DISCHARGE Not ordered today HH Medication Review/Education Problem:HC SN MEDICATION Completed Medication reconciliation performed. Needs/changes identified: none New major medication interactions or any symptomatic interactions identified: none Medication instructions provided for the following med(s): None at this visit High Risk Med Safety Education- Pain Medication Problem:HC SN MEDICATION Not addressed at this visit General Nursing Plan of Care (Order Only) Description: Admission Certification: 64 y.o male admitted to Home Care Services for nursing. Estimation of how long skilled services will be required 60 days. Face to Face encounter occurred on --- with ---. Dr. Leonard Jasso, STRATEGIC PLANNING MANAGER, contacted and agrees with plan of care. Clinical findings: Patient had surgery on 11/01/19 at [facility] due to osteomyelitis of right ankle. [...] Not needed. Social Work Focus: Not needed. Hot Molder to provide: Not needed. Past Medical History: [...] osteomyelitis, and needs/has: medical contraindication due to immunosuppression/seri ous risk of infection Homebound Criteria 2- Inability [...] detail on Emergent Care form as indicated N/A Instructed patient to call [facility] using the following method: Written in home folder and Verbally Has patient fallen since last home visit? no Date of fall N/A Actions taken N/A Insurance change since last home visit no. (If yes, notify DPS) Has patient developed an infection since last home visit? no If yes, document detail on infection form and notify Infection Reporting. Homebound Criteria 1- Patient has illness/injury: long-term wound care and IV ABT, and needs/has: help of another person to leave home due to weakness. Homebound Criteria 2- Inability to leave the home and leaving the home requires a taxing and considerable effort due to: leaving home exacerbates symptoms pain and fatigue Additional Disease Management (O) Description: SN to monitor for signs and symptoms of exacerbation or complications of chronic osteomyelitis of right ankle. Problem:SN SOC GENERAL ORDERS Goal:HC SN General Completed Exacerbation/ complications noted at this visit: none Depression (O) Description: Patient at risk for depression. Skilled nurse to instruct on signs and symptoms to report, and self help measures. Problem:DEPRESSION Goal:HC Depression Not addressed at this visit documented in this encounter Care Teams Slitter Helper Relationship Specialty Start Date End Date Provider, Not On File [place] PCP - General 11/06/19 11/26/19 documented as of this encounter
--- OUTSIDE RECORDS SUMMARY | 2024-11-23 00:11 | XMS_ITS | Encounter Summary ---
Author Organization [facility] Address [address] [place] [address] Phone Care Team Providers Care Bowling Or Skating Front Desk Clerk Name Role Phone Provider, None Primary Care Provider Unavailabl e Encounter Details Date Type Department Care Team (Late st Contact Info) Description 11/27/2019 10:15 AM GRANTS AND CONTRACTS ASSISTANT Lab [facility] Laboratory Services [address] [place] [address] Leonard Jasso, AN[address] [place] [address] termite helper (current) use of antibiotics Discharge Disposition: Discharged to home or Selfcare Social History Tobacco Use Types Packs/Day Years Used Date Smoking Tobacco: Never Assessed Sex and Gender Information Value Date Recorded Sex Assigned at Not on file Legal Sex Male 4:33 PM GRANTS AND CONTRACTS ASSISTANT Gender Identity Not on file Sexual Orientation Not on file documented as of this encounter Plan of Treatment Not on file documented as of this encounter Procedures Procedure Name Priority Date/Time Associated Diagnosis Comments CBC WITH AUTO DIFFERENTIAL Routine 11/27/2019 8:45 AM GRANTS AND CONTRACTS ASSISTANT termite helper (current) use of antibiotics VANCOMYCIN TROUGH Routine 11/27/2019 8:4 5 AM GRANTS AND CONTRACTS ASSISTANT termite helper (current) use of antibiotics CMP (COMPREHENSIVE METABOLIC PANEL) Routine 11/27/2019 8:45 AM GRANTS AND CONTRACTS ASSISTANT termite helper (current) use of antibiotics COMPLETE BLOOD COUNT (CBC) WITH DIFF Routine 11/27/2019 8:45 AM GRANTS AND CONTRACTS ASSISTANT termite helper (current) use of antibiotics documented in this encounter Results * CBC WITH AUTO DIFFERENTIAL (11/27/2019 8:45 AM GRANTS AND CONTRACTS ASSISTANT) WBC 5.71 4.00 - 12.00 10(3)/mcL 11/27/2019 5:44 PM [facility] RBC 4.61 4.40 - 5.80 10(6)/mcL 11/27/2019 5:44 PM [facility] HEMOGLOBIN (HGB) 14.0 13.0 - 16.5 g/dL 11/27/2019 5:44 PM [facility] HEMATOCRIT (HCT) 42.6 38.0 - 50.0 % 11/27/2019 5:44 PM [facility] MCV 92.4 82.0 - 96.0 fL 11/27/2019 5:44 PM [facility] MCH 30.4 26.0 - 32.0 pg 11/27/2019 5:44 PM [facility] MCHC 32.9 31.0 - 36.0 g/dL 11/27/2019 5:44 PM [facility] PLATELET COUNT 198 140 - 440 10(3)/mcL 11/27/2019 5:44 PM [facility] RDW 12.5 11.8 - 15.5 % 11/27/2019 5:44 PM [facility] MPV 10.8 8.0 - 12.6 fL 11/27/2019 5:44 PM [facility] NEUTROPHILS 53.5 40.0 - 68.0 % 11/27/2019 5:44 PM [facility] LYMPHOCYTES 29.2 19.0 - 49.0 % 11/27/2019 5:44 PM [facility] MONOCYTES 11.6 3.0 - 13.0 % 11/27/2019 5:44 PM [facility] EOSINOPHILS 5.3 0.0 - 8.0 % 11/27/2019 5:44 PM [facility] BASOPHILS 0.4 0.0 - 1.0 % 11/27/2019 5:44 PM [facility] ABSOLUTE NEUTROPHILS 3.06 1.40 - 5.30 10(3)/mcL 11/27/2019 5:44 PM GRANTS AND CONTRACTS ASSISTANT [facility] ABSOLUTE LYMPHOCYTES 1.67 0.90 - 3.30 10(3)/mcL 11/27/2019 5:44 PM [facility] ABSOLUTE MONOCYTES 0.66 0.10 - 0.90 10(3)/mcL 11/27/2019 5:44 PM [facility] ABSOLUTE EOSINOPHIL 0.30 0.00 - 0.50 10(3)/[facility] 11/27/2019 5:44 PM [facility] ABSOLUTE BASOPHILS 0.02 0.00 - 0.10 10(3)/[facility] 11/27/2019 5:44 PM [facility] NRBC PER 100 WBC 0 11/27/19 20 5:44 PM [facility] RESULTS ARE CONSISTENT WITH PERIPHERAL SMEAR REVIEW Yes 11/27/2019 5:44 PM [facility] RBC MORPHOLOGY CONSISTENT WITH INDICES Yes 11/27/2019 5:44 PM [facility] LARGE PLATELETS 1+ 0 5:44 PM [facility] Blood specimen (specimen) No Phlebotomy Charged / Unknown 11/27/2019 8:45 AM GRANTS AND CONTRACTS ASSISTANT 11/27/2019 3:45 PM GRANTS AND CONTRACTS ASSISTANT Narrative [facility] - 11/27/2019 5:44 PM GRANTS AND CONTRACTS ASSISTANT Few platelet clumps. us Leonard Jasso APRN HEMATOLOGY ORDERABLES F inal Result [facility] [address] [place] [address], * (ABNORMAL) CMP (COMPREHENSIVE METABOLIC PANEL) (11/27/2019 8:45 AM GRANTS AND CONTRACTS ASSISTANT) SODIUM 139 136 - 145 mmol/L 11/27/2019 4:26 PM [facility] POTASSIUM 4.2 3.5 - 5.1 mmol/L 11/27/2019 4:26 PM [facility] CHLORIDE 106 98 - 107 mmol/L 11/27/2019 4:26 PM [facility] CO2, VENOUS 25 22 - 30 mmol/L 11/27/2019 4:26 PM [facility] ANION GAP 8.0 <18.0 mmol/L 11/27/2019 4:26 PM [facility] GLUCOSE 107(H) 70 - 99 mg/dL 11/27/2019 4:26 PM [facility] BUN 12 8 - 26 mg/dL 11/27/2019 4:26 PM [facility] CREATININE, BLOOD 0.85 0.70 - 1.30 mg/dL 11/27/2019 4:26 PM [facility] BUN/CREATININE RATIO 14 12 - 20 ratio 11/27/2019 4:26 PM [facility] TOTAL PROTEIN 7.1 6.3 - 8.2 g/dL 11/27/2019 4:26 PM [facility] ALBUMIN 4.1 3.5 - 5.0 g/dL 11/27/2019 4:26 PM [facility] A/G RATIO 1.4 1.0 - 2.2 11/27/2019 4:26 PM [facility] CALCIUM 8.9(L) 9.1 - 10.5 mg/dL 11/27/2019 4:26 PM [facility] T BILI 0.5 0.2 - 1.2 mg/dL 11/27/2019 4:26 PM [facility] SGOT (AST) 28 5 - 34 U/L 11/27/2019 4:26 PM [facility] SGPT (ALT) 26 0 - 55 U/L 11/27/2019 4:26 PM [facility] ALKALINE PHOSPHATASE 77 40 - 150 U/L 11/27/2019 4:26 PM [facility] GFR, EST. NONAFRICAN >60 >=60 11/27/2019 4:26 PM [facility] GFR, EST. >60 >=60 11/27/2019 4:26 PM [facility] Comment: Creatinine Clearance is the preferred criteria for selecting drug dose adjustments in renally impaired patients. ??The GFR is provided as additional pertinent clinical information. GFR is reported in mL/min/1.73 sq m. Blood specimen (specimen) No Phlebotomy Charged / Unknown 11/27/2019 8:45 AM GRANTS AND CONTRACTS ASSISTANT 11/27/2019 3:45 PM GRANTS AND CONTRACTS ASSISTANT Leonard Jasso APRN CHEMISTRY ORDERABLES Fi nal Result Performing Organization Address City/[facility] [[email or web address]] Co de Phone Number [address] [address], [place] [phone] * VANCOMYCIN TROUGH (11/27/2019 8:45 AM GRANTS AND CONTRACTS ASSISTANT) VANCOMYCIN, TROUGH 16 10 - 20 mcg/mL 11/27/2019 4:26 PM GRANTS AND CONTRACTS ASSISTANT [facility] Blood specimen (specimen) No Phlebotomy Charged / Unknown 11/27/2019 8:45 AM GRANTS AND CONTRACTS ASSISTANT 11/27/2019 3:45 PM GRANTS AND CONTRACTS ASSISTANT Leonard Jasso APRN CHEMISTRY ORDERABLES Fi nal Result Performing Organization Address [facility] [[email or web address]] Co de Phone Number [address] [address], [place] [phone] documented in this encounter Visit Diagnoses Diagnosis termite helper (current) use of antibiotics documented in this encounter Care Teams Bowling Or Skating Front Desk Clerk Relationship Specialty Start Date End Date Provider, None [place] PCP - General 11/27/19 documented as of this encounter
--- OUTSIDE RECORDS SUMMARY | 2024-11-23 00:11 | XMS_ITS | Encounter Summary ---
Author Organization [facility] Address [address] [place] [address] Phone Care Team Providers Care Catering Driver Name Role Phone Provider, None Primary Care Provider Unavailabl e Reason for Visit * Auth/Cert Specialty Diagnoses / Procedures Referred By Celine t Referred To Contact Referral ID Status Reason Start Date Expiration Date Visits Re quested Visits Authorized [id number] 1 1 Encounter Details Date Type Department Care Team (Late st Contact Info) Description 12/04/2019 [facility] [address] [place] [address] Pushpa Vela V, RN [place] CASE COMMUNICATION Social History Tobacco Use Types Packs/Day Years Used Date Smoking Tobacco: Never Assessed Sex and Gender Information Value Date Recorded Sex Assigned at Not on file 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
--- OUTSIDE RECORDS SUMMARY | 2024-11-23 00:11 | XMS_ITS | Encounter Summary ---
Author Organization [facility] Address [address] [place] [address] Phone Care Team Providers Care Shuttle Fitting Supervisor Name Role Phone Provider, None Primary Care Provider Unavailabl e Reason for Visit * Auth/Cert Specialty Diagnoses / Procedures Referred By Celine almaguer Referred To Contact Referral ID Status Reason Start Date Expiration Date Visits Re quested Visits Authorized [id number] 1 1 Encounter Details Date Type Department Care Team ([facility] Contact Info) Description [facility]/04[facility] [address] [place] [address] Yanira Tineo, RN [place] SN - OASIS TRANSFER W/OUT DC Social History Tobacco Use Types Packs/Day Years Used Date Smoking Tobacco: Never Assessed Sex and Gender Information Value Date Recorded Sex Assigned at Not on file 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 Gender Identity Not on file Sexual Orientation Not on file documented as of this encounter Plan of Treatment Not on file documented as of this encounter Visit Diagnoses Not on filedocumented in this encounter Home Health Visit - Care Plan Visit Details Visit Type -SN - OASIS TRANS W/OUT DC Discipline -Alf Problems Problem Description Start Date Status Goals Interve ntions FALL PREVENTION (O) Disciplines: Alf, Physical Therapy, Occupational Therapy, Speech Language Pathology, Planisher, Medical Social Work 11/15/2019 Active 1 goal linked to scheduled/docume nted intervention 1 goal intervention scheduled/documen lobito in this visit HC CARE SUMMARY Disciplines: Alf, Physical Therapy, Occupational Therapy, Speech Language Pathology, Medical Social Work, Licensed Practical Nurse, Respiratory Therapy Care Summary 11/15/2019 Active 1 goal linked to scheduled/docume nted intervention 1 goal intervention scheduled/documen lobito in this visit HC SN MEDICATION Disciplines: Alf SN Medication 11/15/2019 Active - 1 problem intervention scheduled/documen lobito in this visit SN SOC GENERAL ORDERS Disciplines: Alf SN General Orders 11/15/2019 Active 1 goal linked to scheduled/docume nted intervention 1 goal intervention scheduled/documen lobito in this visit CVC TUNNELED/NON TUNNELED/PICC Disciplines: Alf CVC Tunneled/Non-Benigno neled/PICC 11/15/2019 Active 1 goal linked to scheduled/docume nted intervention 1 goal intervention scheduled/documen lobito in this visit HC CVC TUNNELED/NON-TUNN ELED/PICC CARE Disciplines: Alf CVC Tunneled/Non-Benigno neled/PICC Care 11/15/2019 Active - 3 problem interventions scheduled/documen lobito in this visit WOUND CARE ORDERS(O) Disciplines: Alf Wound Care Orders 11/15/2019 Active 1 goal linked to scheduled/docume nted [...] date: by discharge WOUND CARE ORDERS(O) No Interventions Intervention Associated Problem/Goal Status Variance [...] Not needed. Social Work Focus: Not needed. Planisher to provide: Not needed. Past Medical History: [...] wound, and needs/has: medical contraindication due to infected/draining/complicate d wound Homebound Criteria 2- Inability to leave [...] Tunneled/PICC Scheduled CVC Dressing Change Problem:HC CVC TUNNELED/NON-TUNNELED/PI CC CARE Scheduled CVC Cap Change Problem:HC CVC TUNNELED/NON-TUNNELED/PI CC CARE Scheduled CVC Medication Infusion Problem:HC CVC TUNNELED/NON-TUNNELED/PI CC CARE Scheduled Wound Care NPWT Foam (Order [...] Problem:WOUND CARE ORDERS(O) Goal:HC Wound Care Scheduled documented in this encounter Care Teams Shuttle Fitting Supervisor Relationship Specialty Start Date End Date Provider, None [place] PCP - General 11/27/19 documented as of this encounter
--- OUTSIDE RECORDS SUMMARY | 2024-11-23 00:11 | XMS_ITS | Encounter Summary ---
Author Organization [facility] Address [address] [place] [address] Phone Care Team Providers Care Telephone Assembler Name Role Phone Provider, None Primary Care Provider Unavailabl e Reason for Visit * Auth/Cert Specialty Diagnoses / Procedures Referred By Celine almaguer Referred To Contact Referral ID Status Reason Start Date Expiration Date Visits Re quested Visits Authorized [id number] 1 1 Encounter Details Date Type Department Care Team ([facility] st Contact Info) Description [facility]/28/[facility] [address] [place] [address] Verónica Harp, RN [place] CASE COMMUNICATION Social History Tobacco Use Types Packs/Day Years Used Date Smoking Tobacco: Never Assessed Sex and Gender Information Value Date Recorded Sex Assigned at Not on file 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
--- OUTSIDE RECORDS SUMMARY | 2024-11-23 00:11 | XMS_ITS | Encounter Summary ---
Author Organization [facility] Address [address] [place] [address] Phone Care Team Providers Care Machine Sander Name Role Phone Provider, Not On File Primary Care Provider Unav ailable Reason for Visit * Auth/Cert Specialty Diagnoses / Procedures Referred By Celine almaguer Referred To Contact Referral ID Status Reason Start Date Expiration Date Visits Re quested Visits Authorized [id number] 1 1 Encounter Details Date Type Department Care Team (Latest Contact Info) Description 11/20/2019 2:00 AM WIRE STITCHER MACHINE Home Care Visit [facility] [address] [place] [address] Pushpa Vela V, RN [place] SN - INTRAVENOUS VISIT Social History Tobacco Use Types Packs/Day Years Used Date Smoking Tobacco: Never Assessed Sex and Gender Information Value Date Recorded Sex Assigned at Not on file Legal Sex Male 4:33 PM WIRE STITCHER MACHINE Gender Identity Not on file Sexual Orientation Not on file documented as of this encounter Last Filed Vital Signs Vital Sign Reading Time Taken Comments Blood Pressure - - Pulse 80 11/20/2019 10:41 AM WIRE STITCHER MACHINE Temperature 36.1 ??C (96.9 ??F) 11/20/2019 10:[address] Respiratory Rate - - Oxygen Saturation 98% 11/20/2019 10:41 AM WIRE STITCHER MACHINE Inhaled Oxygen Concentration - - Weight - - Height - - Body Mass Index - - documented in this encounter Plan of Treatment Not on file documented as of this encounter Visit Diagnoses Not on filedocumented in this encounter Home Health Visit - Care Plan Visit Details Visit Type -SN - Intravenous Visit Discipline -Intermediate Problems Problem Description Start Date Status Goals Interve ntions FALL PREVENTION (O) Disciplines: Intermediate, Physical Therapy, Occupational Therapy, Speech Language Pathology, Head Charrer, Medical Social Work 11/07/2019 Active 1 goal linked to scheduled/docume nted intervention 1 goal intervention scheduled/documen lobito in this visit HC CARE SUMMARY Disciplines: Intermediate, Physical Therapy, Occupational Therapy, Speech Language Pathology, Medical Social Work, Licensed Practical Nurse, Respiratory Therapy Care Summary 11/07/2019 Active 1 goal linked to scheduled/docume nted intervention 1 goal intervention scheduled/documen lobito in this visit WOUND CARE EDUCATION Disciplines: Intermediate Wound Care Education 11/07/2019 Active - 1 problem intervention scheduled/documen lobito in this visit WOUND CARE ORDERS(O) Disciplines: Intermediate Wound Care Orders 11/07/2019 Active 1 goal linked to scheduled/docume nted intervention 1 goal intervention scheduled/documen lobito in this visit HC IV EDUCATION Disciplines: Intermediate IV Education 11/07/2019 Active - 1 problem intervention scheduled/documen lobito in this visit CVC TUNNELED/NON TUNNELED/PICC Disciplines: Intermediate CVC Tunneled/Non-Benigno neled/PICC 11/07/2019 Active 1 goal linked to scheduled/docume nted intervention 1 goal intervention scheduled/documen lobito in this visit HC CVC TUNNELED/NON-TUNN ELED/PICC CARE Disciplines: Intermediate CVC Tunneled/Non-Benigno neled/PICC Care 11/07/2019 Active - 2 problem interventions scheduled/documen lobito in this visit PAIN-MANAGEMENT/E DUCATION Disciplines: Intermediate, Physical Therapy, Occupational Therapy, Speech Language Pathology 11/07/2019 Active 1 goal linked to scheduled/docume nted intervention 1 goal intervention scheduled/documen lobito in this visit HC SN MEDICATION Disciplines: Intermediate SN Medication 11/07/2019 Active - 2 problem interventions scheduled/documen lobito in this visit SN SOC GENERAL ORDERS Disciplines: Intermediate SN General Orders 11/07/2019 Active 1 goal linked to scheduled/docume nted intervention 2 goal interventions scheduled/documen lobito in this visit DEPRESSION Disciplines: Intermediate Depression Risk 11/13/2019 Active 1 goal linked [...] Assessment performed and vital signs recorded. SN took picture and measurements of wound. SN performed wound care, patient tolerated well. Patient has an appointment tomorrow at wound clinic. Patient c/o pain to right ankle, patient reports taking pain medication which does provide relief. No new concerns reported. Instructed patient to [...] consultation for alternative wound treatment recommendations.) Wound Care NPWT Foam (Order Only) Description: [...] Completed Wound #: 1, Location: right lateral ankle Removed: FoamDressing Cleansed with wound cleanser. Packed with black foam. Dressing applied non adherent contact layer. Covered with transparent film dressing. Seal obtained yes. Suction settinmmHg. Number of pieces of NPWT black foam packed into wound: 2 Number of pieces of non-adherent contact layer packed into wound: 0 Patient Tolerance: well. IV Education- Potential Complications and Signs and Symptoms Problem:HC IV EDUCATION Completed Instructed on potential complications: Medication reaction- shortness of breath, itching, rash. Line damage or dislodgement, site infection. Signs and symptoms to report including redness, drainage, loose dressing, migration of tubing, dislodgement or damage of device, no blood return, unable to flush, pain. Take temperature daily and report temperature greater than 100 degrees. Instruction provided to Patient. Response verbalize understanding. [...] caregiver on strategies to manage pain. Problem:PAIN-NIKHIL GEMENT/EDUCATION Goal:Pain Management/Educat ion Completed Pain management plan: [...] to assist with focus. Instruction provided take percocet before pain is severe, monitor for constipation. Instruction provided to Patient. Response verbalize understanding. Medication Review/Education Problem:HC SN MEDICATION Completed Medication reconciliation performed. Needs/changes identified: none New major medication interactions or any symptomatic interactions identified: none Medication instructions provided for the following med(s): vancomycin and percocet-including: reason for use, evaluation of effectiveness, frequency and dose Instruction provided to Patient Method of instruction verbal Response verbalize understanding High Risk Med Safety Education- Pain Medication Problem:HC SN MEDICATION Completed Patient takes pain medication Percocet. Assess Sedation Scale: 1 - awake/alert, Instructed [...] on --- with ---. Dr. Leonard Jasso, CAREER AND GUIDANCE COUNSELOR, contacted and agrees with plan of care. Clinical findings: Patient had surgery on 11/01/19 at [facility] due to osteomyelitis of right ankle. Patient [...] Not needed. Social Work Focus: Not needed. Head Charrer to provide: Not needed. Past Medical History: [...] wound, and needs/has: medical contraindication due to infected/draining/co [...] symptoms to report, and self help measures. Problem:DEPRESSIO N Goal:HC Depression Completed Depression Education Provided: Activity- Engage in mild activity or exercise, set realistic goals for yourself, break up large tasks into small ones and What to report- Worsening signs of depression, thoughts of harming yourself, concerns about medication, other concerns/questions Instruction provided to: Patient. Response verbalize understanding. documented in this encounter Care Teams Machine Sander Relationship Specialty Start Date End Date Provider, Not On File [place] PCP - General 11/06/19 11/26/19 documented as of this encounter
--- OUTSIDE RECORDS SUMMARY | 2024-11-23 00:11 | XMS_ITS | Encounter Summary ---
Author Organization [facility] Address [address] [place] [address] Phone Care Team Providers Care Lining Closer Name Role Phone Provider, None Primary Care Provider Unavailabl e Reason for Visit * Auth/Cert Specialty Diagnoses / Procedures Referred By Celine almaguer Referred To Contact Referral ID Status Reason Start Date Expiration Date Visits Re quested Visits Authorized [id number] 1 1 Encounter Details Date Type Department Care Team (Latest Contact Info) Description 11/27/2019 7:00 AM METAL FABRICATOR Home Care Visit [facility] [address] [place] [address] Pushpa Vela V, RN [place] SN - INTRAVENOUS VISIT Discharge Disposition: Discharged to home or Selfcare Social History Tobacco Use Types Packs/Day Years Used Date Smoking Tobacco: Never Assessed Sex and Gender Information Value Date Recorded Sex Assigned at Not on file Legal Sex Male 4:33 PM METAL FABRICATOR Gender Identity Not on file Sexual Orientation Not on file documented as of this encounter Last Filed Vital Signs Vital Sign Reading Time Taken Comments Blood Pressure 140/70 11/27/2019 8:31 AM METAL FABRICATOR Pulse 86 11/27/2019 8:31 AM METAL FABRICATOR Temperature 36.5 ??C (97.7 ??F) 11/27/2019 8:31 AM CS T Respiratory Rate 18 11/27/2019 8:31 AM METAL FABRICATOR Oxygen Saturation 98% 11/27/2019 8:31 AM METAL FABRICATOR Inhaled Oxygen Concentration - - Weight - - Height - - Body Mass Index - - documented in this encounter Plan of Treatment Not on file documented as of this encounter Visit Diagnoses Not on filedocumented in this encounter Home Health Visit - Care Plan Visit Details Visit Type -SN - Intravenous Visit Discipline -Fdc Problems Problem Description Start Date Status Goals Interve ntions FALL PREVENTION (O) Disciplines: Fdc, Physical Therapy, Occupational Therapy, Speech Language Pathology, Sales Account Manager, Medical Social Work 11/07/2019 Active 1 goal [...] CARE EDUCATION Disciplines: Fdc Wound Care Education 11/07/2019 Active - 1 problem intervention scheduled/documen lobito in this visit WOUND CARE ORDERS(O) Disciplines: Fdc Wound Care Orders 11/07/2019 Active 1 goal linked to scheduled/docume nted intervention 1 goal intervention scheduled/documen lobito in this visit SN LAB ORDER Disciplines: Fdc SN Lab Order 11/07/2019 Active - 1 problem intervention scheduled/documen lobito in this visit CVC TUNNELED/NON TUNNELED/PICC Disciplines: Fdc CVC Tunneled/Non-Benigno neled/PICC 11/07/2019 Active 1 goal linked to scheduled/docume nted intervention 1 goal intervention scheduled/documen lobito in this visit HC CVC TUNNELED/NON-TUNN ELED/PICC CARE Disciplines: Fdc CVC Tunneled/Non-Benigno neled/PICC Care 11/07/2019 Active - 2 problem interventions scheduled/documen lobito in this visit HC SN MEDICATION Disciplines: Fdc SN Medication 11/07/2019 Active - 1 problem intervention scheduled/documen lobito in this visit SN SOC GENERAL ORDERS Disciplines: Fdc SN General Orders 11/07/2019 Active 1 goal [...] Assessment performed and vital signs recorded. SN samuel blood as ordered, patient toelrated well. SN changed picc line dressing, no signs of infection noted. SN performed wound care as ordered, patient tolerated well. Picture taken and measurements recorded of wound. Patient has an appointment tomorrow with wound clinic. No new concerns reported. Instructed patient to [...] contact layer. Covered with transparent film dressing. Secured with tubigrip. Seal obtained yes. Suction settinmmHg. Number of [...] ORDER Completed Labs Drawn: CBC w diff, CMP, vanco trough. Blood drawn from RAC x 1 attempt. Pressure applied to site for one minute. Site covered with bandaid. Specimen taken to Dr. Hinton's office. Tunneled/Non-Tunneled PICC (Order Only) Description: CVC care [...] lumen(s). Blood return obtained no. If no: MD is aware. ROUTINE FLUSH FOR PATENCY SN flushed red and purple lumen(s) with 10 ml Normal Saline to maintain patency. HEPARIN LOCK SN flushed red lumen(s) with 5 ml of 10 unit per ml heparin. Purple hooked up to IV ATB CVC Dressing Change Problem:HC CVC TUNNELED/NON-TUNNEL ED/PICC CARE Completed CVC site care performed today by SN. Cleansed site with chloraPrep using aseptic technique. PRN items used antimicrobial disc - Biopatch. Dressing applied transparent film. Next dressing change due on 12/04/19. CVC Cap Change Problem:HC CVC TUNNELED/NON-TUNNEL ED/PICC CARE Completed Cap changed today. To red and purple lumen(s). Changed by SN. Next cap change due on 12/04/19. Medication Review/Education Problem:HC SN MEDICATION Completed Medication reconciliation performed. Needs/changes identified: none New major medication interactions or any symptomatic interactions identified: none Medication instructions provided for the following med(s): vancomycin-including: reason for use, evaluation of effectiveness, frequency and dose Instruction provided to Patient Method of instruction verbal Response verbalize understanding General Nursing Plan of Care (Order Only) Description: Admission Certification: 64 y.o male admitted to Home Care Services for nursing. Estimation of how long skilled services will be required 60 days. Face to Face encounter occurred on --- with ---. Dr. Leonard Jasso, FOOD SERVICE COORDINATOR, contacted and agrees with plan of care. Clinical findings: Patient had surgery on 11/01/19 at [facility] due to osteomyelitis of right ankle. [...] Not needed. Social Work Focus: Not needed. Sales Account Manager to provide: Not needed. Past Medical History: [...] Reporting. Homebound Criteria 1- Patient has illness/injury: osteomyelitis , and needs/has: medical contraindication due to infected/draining/comp licated wound Homebound Criteria 2- Inability to leave the home and leaving the home requires a taxing and considerable effort due to: leaving home exacerbates symptoms pain, anxiety and fatigue documented in this encounter Care Teams Lining Closer Relationship Specialty Start Date End Date Provider, None [place] PCP - General 11/27/19 documented as of this encounter
--- OUTSIDE RECORDS SUMMARY | 2024-11-23 00:12 | XMS_ITS | Encounter Summary ---
Author Organization [facility] Care Address [address] [place] [address] Phone Care Team Providers Care Toppiece Chopper Name Role Phone Coco Leos PA-C Primary Care Provider [phone] Provider, No-Primary Care Primary Care Provider Unavailable Encounter Details Date Type Department Care Team (Late st Contact Info) Description 05/02/2018 Pharmacy Visit RX [facility] [address] [place] [phone] Social History Tobacco Use Types Packs/Day Years Used Date Smoking Tobacco: Never Smokeless Tobacco: Never Alcohol Use Standard Drinks/Week Comments No 0 (1 standard drink = 0.6 oz pur e alcohol) Not since 1996 Sex and Gender Information Value Date Recorded Sex Assigned at Not on file Legal Sex Male 3:41 AM CDT Gender Identity Not on file Sexual Orientation Not on file documented as of this encounter Plan of Treatment Not on file documented as of this encounter Goals Goal Patient Goal Type Associated Problems Recent Progress Patient-Stated? Author Pain Management - Transcutaneous Electrical Nerve Stimulation (TENS) Pain Management No Coco Leos PA-C Note: Transcutaneous Electrical Nerve Stimulation (TENS) Unit: Device: Modulated Dual Channel TENS unit (AccuRelief recommended) Frequency: Modulated (P6 recommended for AccuRelief) Electrode Placement: See handout for instructions Duration: 30 minutes, 3-4 times per day while active Intensity: Strong but comfortable Expected length of use: As long as needed Video/Handout: [email or web address]-[email or web address]-slulmjuueb-tens Pain Management - Exercise Pain Management No Coco Leos PA-C Note: Exercise: General Aerobic ?? Duration: 3 to 5 days per week for 20 minutes per day ?? Intensity: Moderate Strengthening: neither Back nor General (for widespread pain) nor Shoulder ?? Intensity: Moderate ?? Duration: 2 to 4 days per week ?? Instructions: See attached documentation for details Video/Handout: [email or web address]-[email or web address] documented as of this encounter Visit Diagnoses Not on filedocumented in this encounter Additional Health Concerns Assessment Noted Time PHQ-9 Depression Total Score: 3 05/02/20 18 4:27 PM CDT PHQ-2 Depression Total Score: 1 05/02/20 18 4:27 PM CDT documented as of this encounter Care Teams Toppiece Chopper Relationship Specialty Start Date End Date Coco Leos PA-C [address] [place], [place] [phone] PCP - General Physician Head Field Hockey Coach 02/17/17 12/15/22 Provider, No-Primary Care [place] PCP - General 12/16/22 documented as of this encounter
--- OUTSIDE RECORDS SUMMARY | 2024-11-23 00:12 | XMS_ITS | Encounter Summary ---
Author Organization [facility] Address [address] [place] [address] Phone Care Team Providers Care Pluck Separator Name Role Phone Coco Leos PA-C Primary Care Provider [phone] Provider, No-Primary Care Primary Care Provider Unavailable Encounter Details Date Type Department Care Team (Late st Contact Info) Description 07/13/2018 Pharmacy Visit RX [facility] [address] [place] [phone] Social History Tobacco Use Types Packs/Day [...] of use: As long as needed Video/Handout: [email or web address]-[email or web address]-bsgv-jrzopspibq-tens Pain Management - Exercise Pain Management No Coco Leos PA-C Note: Exercise: General Aerobic ?? Duration: 3 to 5 days per week for 20 minutes per day ?? Intensity: Moderate Strengthening: neither Back nor General (for widespread pain) nor Shoulder ?? Intensity: Moderate ?? Duration: 2 to 4 days per week ?? Instructions: See attached documentation for details Video/Handout: [email or web address]-[email or web address]-exercise documented as of this encounter Visit Diagnoses Not on filedocumented in this encounter Additional Health Concerns Assessment Noted Time PHQ-9 Depression Total Score: 3 05/02/20 18 4:27 PM CDT PHQ-2 Depression Total Score: 1 05/02/20 18 4:27 PM CDT documented as of this encounter Care Teams Pluck Separator Relationship Specialty Start Date End Date Coco Leos PA-C [address] [place], [place] [phone] PCP - General Physician Learning And Development Assistant 02/17/17 12/15/22 Provider, No-Primary Care [place] PCP - General 12/16/22 documented as of this encounter
--- OUTSIDE RECORDS SUMMARY | 2024-11-23 00:12 | XMS_ITS | Encounter Summary ---
Author Organization [facility] Care Address [address] [place] [address] Phone Care Team Providers Care Stitch Welder Name Role Phone Coco Leos PA-C Primary Care Provider [phone] Provider, No-Primary Care Primary Care Provider Unavailable Encounter Details Date Type Department Care Team (Late st Contact Info) Description 05/03/2018 Pharmacy Visit RX [facility] [address] [place] [phone] Social History Tobacco Use Types Packs/Day [...] of use: As long as needed Video/Handout: [email or web address]-[email or web address]-ounw-ridqqlvsmi-tens Pain Management - Exercise Pain Management No Coco Leos PA-C Note: Exercise: General Aerobic ?? Duration: 3 to 5 days per week for 20 minutes per day ?? Intensity: Moderate Strengthening: neither Back nor General (for widespread pain) nor Shoulder ?? Intensity: Moderate ?? Duration: 2 to 4 days per week ?? Instructions: See attached documentation for details Video/Handout: [email or web address]-library/vskrhmo-ikus-tjtmffgflu-exercise documented as of this encounter Visit Diagnoses Not on filedocumented in this encounter Additional Health Concerns Assessment Noted Time PHQ-9 Depression Total Score: 3 05/02/20 18 4:27 PM CDT PHQ-2 Depression Total Score: 1 05/02/20 18 4:27 PM CDT documented as of this encounter Care Teams Stitch Welder Relationship Specialty Start Date End Date Coco Leos PA-C [address] [place], [place] [phone] PCP - General Physician Rn Observation 02/17/17 12/15/22 Provider, No-Primary Care [place] PCP - General 12/16/22 documented as of this encounter
--- OUTSIDE RECORDS SUMMARY | 2024-11-23 00:12 | XMS_ITS | Encounter Summary ---
Author Organization [facility] Care Address [address] [place] [address] Phone Care Team Providers Care Housing Officer Name Role Phone Coco Leos PA-C Primary Care Provider [phone] Reason for Visit * Reason Comments Medication Management Pain Encounter Details Date Type Department Care Team (Late st Contact Info) Description 06/06/2018 Telephone [facility] [address] [facility] [address] [address] Coco Leos PA-C [address] [place] [address] Social History Tobacco Use Types Packs/Day Years [...] on file documented as of this encounter Miscellaneous Notes * Telephone Encounter - Maryellen Tristan RN - 06/06/2018 10:08 AM CDT 06/06/2018 919 Patient called regarding cellulitis and medication change. --Spoke with Edilberto, and he is wondering if his prescription for oxycontin 15 mg XR BID to mg XR BID. He was given this in the hospital and was sent home with 10 or 12 pills that he took instead of the oxycotin. He states that the morphine controlled his pain better so he wondering if he can change. --Would also like to know if he can get an extra pill a day on his oxycodone- acetaminophen script. He reports taking this every 4-6 hours. --He currently has cellulitis of his ankle that he has a wound vac and antibiotic pump. A nurse, Johanna, from [facility], phone [phone], is visiting three time a weeks to change would vac. Reports that he will have is for six to eight weeks. He was cared for at [facility]. 06/06/2018 10:41 AM Malinda Howard RN, BSN We need to get a copy of these records and I will review and consider medication change. I will need to review FINAL ARMATURE TESTER. Coco Leos PA-C, 06/06/2018 12:06 PM Left a message for patient to call back regarding the above message. Sandy Fernandez RN, 06/06/2018 12:22 PM 06/06/2018 Pt calling back, advised to have records faxed to us from his hospitalization. Fax number given. Reminded of appt 8-15-18 at 9:30 AM check in. Morphine controlled his pain better than the oxycontin and oxycodone. MJ. Kun RN 06/06/2018, 1:43 PM documented in this encounter Plan of Treatment Not on file documented as of this encounter Goals Goal Patient Goal Type Associated Problems Recent Progress Patient-Stated? Author Pain Management - Transcutaneous Electrical Nerve Stimulation (TENS) Pain Management Coco Vega PA-C Note: Transcutaneous Electrical Nerve Stimulation (TENS) Unit: Device: Modulated Dual Channel TENS unit (AccuRelief recommended) Frequency: Modulated (P6 recommended for AccuRelief) Electrode Placement: See handout for instructions Duration: 30 minutes, 3-4 times per day while active Intensity: Strong but comfortable Expected length of use: As long as needed Video/Handout: [email or web address] [email or web address]/svkvqll-mxpk-gmknulfuwu-tens Pain Management - Exercise Pain Management No Coco Leos PA-C Note: Exercise: General Aerobic ?? Duration: 3 to 5 days per week for 20 minutes per day ?? Intensity: Moderate Strengthening: neither Back nor General (for widespread pain) nor Shoulder ?? Intensity: Moderate ?? Duration: 2 to 4 days per week ?? Instructions: See attached documentation for details Video/Handout: [email or web address] [email or web address]/yainuss-mdtz-otqdtjehgh-exercise documented as of this encounter Visit Diagnoses Not on filedocumented in this encounter Additional Health Concerns Assessment Noted Time PHQ-9 Depression Total Score: 3 05/02/20 18 4:27 PM CDT PHQ-2 Depression Total Score: 1 05/02/20 18 4:27 PM CDT documented as of this encounter Care Teams Housing Officer Relationship Specialty Start Date End Date Coco Leos PA-C [address] [place], [place] [phone] PCP - General Physician Small Piece Cutter 02/17/17 12/15/22 documented as of this encounter
--- OUTSIDE RECORDS SUMMARY | 2024-11-23 00:12 | XMS_ITS | Encounter Summary ---
Author Organization [facility] Care Address [address] [place] [address] Phone Care Team Providers Care College Tutor Name Role Phone Coco Leos PA-C Primary Care Provider [phone] Reason for Visit * Reason Comments Patient Reported Reason For Visit Encounter Details Date Type Department Care Team (Late st Contact Info) Description 05/02/2018 2:50 PM CDT Lab Only [address] [phone] [place] [address] [place], [place] [phone] Social History Tobacco Use Types Packs/Day Years [...] of use: As long as needed Video/Handout: [email or web address]://[facility].[employer] Genomicslibrary/xzszvft-zezl-xfzmzqgjkt-tens Pain Management - Exercise Pain Management No Coco Leos PA-C Note: Exercise: General Aerobic ?? Duration: 3 to 5 days per week for 20 minutes per day ?? Intensity: Moderate Strengthening: neither Back nor General (for widespread pain) nor Shoulder ?? Intensity: Moderate ?? Duration: 2 to 4 days per week ?? Instructions: See attached documentation for details Video/Handout: [email or web address]://[facility].[employer]ice/kvxuowx-tfvg-joqyrcyjsj-exercise documented as of this encounter Visit Diagnoses Not on filedocumented in this encounter Additional Health Concerns Assessment Noted Time PHQ-9 Depression Total Score: 3 05/02/20 18 4:27 PM CDT PHQ-2 Depression Total Score: 1 05/02/20 18 4:27 PM CDT documented as of this encounter Care Teams College Tutor Relationship Specialty Start Date End Date Coco Leos PA-C [address] [place] [id number] PCP - General Physician Sales Representative Cash Registers 02/17/17 12/15/22 documented as of this encounter
--- OUTSIDE RECORDS SUMMARY | 2024-11-23 00:12 | XMS_ITS | Encounter Summary ---
Author Organization [facility] Care Address [address] [place] [address] Phone Care Team Providers Care Blasting Machine Operator Name Role Phone Coco Leos PA-C Primary Care Provider [phone] Provider, No-Primary Care Primary Care Provider Unavailable Encounter Details Date Type Department Care Team (Late st Contact Info) Description 12/06/2018 Pharmacy Visit [facility] [address] [place] [phone] Social History Tobacco Use Types Packs/Day [...] of use: As long as needed Video/Handout: [email or web address]/health-library/qmbmyub-ktek-hlpcewzegl-tens Pain Management - Exercise Pain Management No Coco Leos PA-C Note: Exercise: General Aerobic ?? Duration: 3 to 5 days per week for 20 minutes per day ?? Intensity: Moderate Strengthening: neither Back nor General (for widespread pain) nor Shoulder ?? Intensity: Moderate ?? Duration: 2 to 4 days per week ?? Instructions: See attached documentation for details Video/Handout: [email or web address]/health-library/okojctj-qcio-tiekbdroky-exercise documented as of this encounter Visit Diagnoses Not on filedocumented in this encounter Additional Health Concerns Assessment Noted Time PHQ-9 Depression Total Score: 3 05/02/20 18 4:27 PM CDT PHQ-2 Depression Total Score: 1 05/02/20 18 4:27 PM CDT documented as of this encounter Care Teams Blasting Machine Operator Relationship Specialty Start Date End Date Coco Leos PA-C [address] [place], [place] [phone] PCP - General Physician Electrical Controls Technician 02/17/17 12/15/22 Provider, No-Primary Care [place] PCP - General 12/16/22 documented as of this encounter
--- OUTSIDE RECORDS SUMMARY | 2024-11-23 00:12 | XMS_ITS | Encounter Summary ---
Author Organization [facility] Care Address [address] [place] [address] Phone Care Team Providers Care Community Living Coach Name Role Phone Coco Leos PA-C Primary Care Provider [phone] Reason for Visit * Reason Comments Other schedule Encounter Details Date Type Department Care Team (Late st Contact Info) Description 09/24/2022 Telephone [facility] [address] [facility] [address] [place] [address] Coco Leos PA-C [address] [place] [address] Social History Tobacco Use Types [...] encounter Miscellaneous Notes * Telephone Encounter - Po Perez RN - 09/24/2022 8:52 AM WEAVER AXMINSTER 09/24/2022 Message from Edilberto Hawley who called about an appt to help with pain shots . He was last seen as pt here in [facility] in April 2018. Return call to Edilberto, no answer. General message left on an unidentified voicemail that he would call the clinic schedulers but would have to re-establish as a new pt due to time of last visit. Number provided. Fritz Perez RN 8:55 AM 09/24/2022 ER AXMINSTER documented in this encounter Plan of Treatment [...] of use: As long as needed Video/Handout: [email or web address] [email or web address]/tyieepj-bcdj-eurndruwpx-tens Pain Management - Exercise Pain Management No Coco Leos PA-C Note: Exercise: General Aerobic ?? Duration: 3 to 5 days per week for 20 minutes per day ?? Intensity: Moderate Strengthening: neither Back nor General (for widespread pain) nor Shoulder ?? Intensity: Moderate ?? Duration: 2 to 4 days per week ?? Instructions: See attached documentation for details Video/Handout: [email or web address] hospitalMarseille Networks/[employer]/bjpdzrx-hknd-qsxbjppzuh-exercise documented as of this encounter Visit Diagnoses Not on filedocumented in this encounter Additional Health Concerns Assessment Noted Time PHQ-9 Depression Total Score: 3 05/02/20 18 4:27 PM CDT PHQ-2 Depression Total Score: 1 05/02/20 18 4:27 PM CDT documented as of this encounter Care Teams Community Living Coach Relationship Specialty Start Date End Date Coco Leos PA-C [address] [place] [phone] PCP - General Physician Last Sawyer 02/17/17 12/15/22 documented as of this encounter
--- OUTSIDE RECORDS SUMMARY | 2024-11-23 00:12 | XMS_ITS | Referral Summary ---
Author Organization [facility] Address [address] [place] [address] Phone Care Team Providers Care Dental Mold Maker Name Role Phone Provider, No-Primary Care Primary Care Provider Unavailable Source Comments This disclosure is being made pursuant to the Care Everywhere program,applicable federal and state laws, and may not contain all informationavailable regarding this patient.[facility] Practices Allergies No known active allergies Medications omeprazole 20 mg enteric coated capsule Take 20 mg by mouth daily. Active cholecalciferol (VITAMIN D3) 2,000 unit capsule Take 2,000 Units by mouth daily. Active lidocaine 5 % ointmentIndicat ions:Low back pain with radiation, right Apply topically 2 times daily as needed. 35.44 g 11 01/12/2017 5:22 PM BUSINESS PROCESS COORDINATOR 01/12/20 17 Active Additional Information Patient not taking.Reported on 05/02/2018 sennosides (SENEXON) 8.6 mg tablet Take 1 tablet by mouth 2 times daily as needed. Active baclofen 10 mg tabletIndicatio ns:muscle spasticity of spinal origin Take 1 tablet (10 mg total) by mouth at bedtime. 30 tablet 06/10/2018 2:04 PM CDT 08/09/20 17 Active capsaicin 0.025 % topical cream Apply to back for pain control three times daily as needed. Avoid use on damaged, broken, or irritated skin, avoid occlusive 10/29/20 17 Active amitriptyline 75 mg tabletIndicatio ns:Other chronic pain Take 0.5 tablets (37.5 mg total) by mouth at bedtime. 30 tablet 06/10/2018 2:04 PM CDT 11/16/19 18 Active DULoxetine 60 mg XR capsuleIndicati ons:Other chronic pain,Moderate episode of recurrent major depressive disorder (HCC) Take 1 capsule (60 mg total) by mouth 2 times daily. 60 capsule 01/11/2018 4:27 PM BUSINESS PROCESS COORDINATOR 01/07/20 18 Active diclofenac 1 % topical gelIndications: Arthritis Apply 4 grams topically 3 times daily. Day supply: 30 400 g 5 01/11/2018 4:27 PM BUSINESS PROCESS COORDINATOR 01/07/20 18 Active Additional Information Patient not taking.Reported on 05/02/2018 naloxone 1 mg/mL injection syringe (2 mL)Indications: Other chronic pain Gently screw vial of naloxone into barrel of syringe. Insert white cone into nostril. Give a short, vigorous push on end of vial to spray 1/2 of vial, 1ml, into each nostril. Repeat with second vial in 3 minutes, if no response. 4 mL 02/08/20 18 Active intranasal mucosal atomization device (MAD NASAL)Indicatio ns:Other chronic pain Use for nasal administration of Naloxone. 2 Each 02/09/2018 3:27 PM CDT 02/08/20 18 Active tamsulosin 0.4 mg capsuleIndicati ons:Lower urinary tract symptoms (LUTS) Take 1 capsule (0.4 mg total) by mouth daily. 30 capsule 05/11/2018 4:29 PM CDT 05/02/20 18 Active polyethylene glycol-electrol yte (GOLYTELY) suspensionIndic ations:bowel evacuation Take as directed the evening before your procedure. 4000 mL 05/03/20 18 Active oxyCODONE-aceta minophen 10-325 mg per tabletIndicatio ns:Other chronic pain Take 1 tablet by mouth every 6 hours as needed for Pain. Not to exceed 3/day Earliest Fill Date: 06/08/18 90 tablet 06/10/2018 2:04 PM CDT 06/08/20 18 Active morpHINE 30 mg CR tabletIndicatio ns:Staphylococc al arthritis of ankle, unspecified laterality (HCC),Other chronic pain Take 1 tablet (30 mg total) by mouth every 12 hours. 60 tablet 06/10/2018 2:04 PM CDT 06/08/20 18 Active Active Problems Patient Care Coordination No te Formatting of this note migh t be different from the original. 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 He describes hitting his back on the way down, and landing on his head. He was seen at [facility] in [place]. CT of the lumbar spine on 04/16/2017 was reported as mildly displaced acute fractures of the right L1, L2, and L3 transverse processes. No vertebral body fractures are identified. Multilevel degenerative changes. No critical spinal canal narrowing. Multilevel foraminal narrowing is seen, most pronounced on the right at the L5-S1 where it is likely severe. [employer] provided a custom back brace. Xrays on 04/19/2017 were reported as new superior endplate compression deformity at L3, compared to prior MRI, similar mild retrolisthesis of L2 on L3. He has a history of back pain with right lower extremity radicular pain and had epidural steroid injections that were very helpful. He was seen at [facility] emergency department on 07/25/2016 with a three-day history of right sided thoracic back pain, worse with movements and deep breaths, first noted after hitting his back on a coat rack at work when going from working on his knees to standing. He established care with [facility] internal medicine and receives Oxycodone/acetaminophen 10/325 one tablet every 4 hours, gabapentin 100 mg at bedtime, amitriptyline 75 mg at bedtime, lidocaine 5% ointment topically, and OxyContin 15 mg XRT tablet twice a day. MRI of the lumbar spine on 01/22/2017 was reported as multilevel degenerative changes worse at L5-S1 on the right side, mildly increased signal on the paraspinal muscles of the lumbosacral spine which may represent mild inflammation or muscle sprain. When Mr. Durand was notified of results by phone, he reported he had fallen on his buttocks at [employer] the previous day with increased pain to his lower back. Problem Noted Date Diagnosed Date Low back pain 09/29/2017 Closed fracture of transvers e process of lumbar vertebra with routine healing 05/19/2017 Encounter related to worker' s compensation claim 04/16/2017 Back 05/11/2017 senior living current use of opiate analgesic 2016 Health care maintenance 10/01/2016 Overview (05/12/2018): Lipid - previously checked, prescribed statin, not taking Glucose - Previously checked Hep C screen negative 03/2017 Smoker/tobacco - never History of cocaine and crystal meth - none since 1996. No history of IVDU Exercise - none Tetanus - 04/16/2017 Flu Colonoscopy - yes, x 2 has multiple polyps per pt report, to do Q3 years. DUE. Chronic pain 10/01/2016 Overview (10/01/2016): OA - shoulders, wrists, hands, back Lumbar radiculopathy History of left hip replacement 10/01/2016 Overview (10/01/2016): 2015 History of repair of left rotator cuff 6 Immunizations Name Administration Dates Next Due Influenza, quadrivalent PF 08/09/2017 Tdap 04/16/2017 Social History Tobacco Use Types Packs/Day Years Used Date Smoking Tobacco: Never Smokeless Tobacco: Never Tobacco Cessation:Counseling Given: No Alcohol Use Standard Drinks/Week Comments No 0 (1 standard drink = 0.6 oz pur e alcohol) Not since 1996 Sex and Gender Information Value Date Recorded Sex Assigned at Not on file Legal Sex Male 3:41 AM CDT Gender Identity Not on file Sexual Orientation Not on file Last Filed Vital Signs Vital Sign Reading Time Taken Comments Blood Pressure 120/73 05/02/2018 1:01 PM CDT Pulse 77 05/02/2018 1:01 PM CDT Temperature 36.7 ??C (98.1 ??F) 05/02/2018 1:01 PM CD T Respiratory Rate 16 05/12/2017 6:43 PM CDT Oxygen Saturation 95% 02/15/2018 9:08 AM CDT Inhaled Oxygen Concentration - - Weight 86.3 kg (190 lb 4.1 oz) 05/02/2018 1:01 P M CDT Height 180.3 cm (5' 11 ) 02/15/2018 8:14 AM CDT Body Mass Index 26.54 02/15/2018 8:14 AM CDT Plan of Treatment Not on file Goals Goal Patient Goal Type Associated Problems [...] of use: As long as needed Video/Handout: [email or web address] Pain Management - Exercise Pain Management No Coco Leos PA-C Note: Exercise: General Aerobic ?? Duration: 3 to 5 days per week for 20 minutes per day ?? Intensity: Moderate Strengthening: neither Back nor General (for widespread pain) nor Shoulder ?? Intensity: Moderate ?? Duration: 2 to 4 days per week ?? Instructions: See attached documentation for details Video/Handout: [email or web address] Procedures Procedure Name Priority Date/Time Associated Diagnosis Comments LIPID PANEL Routine 05/02/2018 2:45 PM CDT Lipid screening PROSTATE SPECIFIC ANTIGEN (PSA), TOTAL, SCREENING Routine 05/02/2018 2:45 PM CDT Lower urinary tract symptoms (LUTS) ABSTRACTED BY BILLING STAFF Routine 05/11/2017 10:41 AM CDT History of colon polyps HEPATITIS C ANTIBODY Routine 04/09/2017 5:05 PM CDT Esophageal varices without bleeding, unspecified esophageal varices type (HCC) from Last 3 Months or Most Recently Relevant to Health Maintenance Results * PROSTATE SPECIFIC ANTIGEN (PSA), TOTAL, SCREENING (05/02/2018 2:45 PM CDT) PSA (Prostate Specific Antigen), Screen 0.31 0.00 - 4.50 ng/mL 05/02/2018 3:28 PM CDT [facility] Comment: Age specific normal values from the literature for PSA are provided as a guide only. ??No one decision level is appropriate when utilizing PSA in screening situation. ??Age, family history, previous values, and other factors should be used in decisions involving PSA values. Reference Ranges: 40-49 years: ??0.00-2.50 ng/mL 50-59 years: ??0.00-3.50 ng/mL 60-69 years: ??0.00-4.50 ng/mL 70-79 years: ??0.00-6.50 ng/mL Results from this assay may be falsely decreased in patients taking high-dose biotin (>5 mg) within 12 hours of specimen collection. Blood specimen (specimen) Venipuncture / Unknown 05/02/2018 2:45 PM CDT 05/02/2018 2:51 PM CDT us Coco Leos PA-C CHEMISTRY ORDERABLES Final R esult [facility] [address] [address] * (ABNORMAL) LIPID PANEL (05/02/2018 2:45 PM CDT) Specimen Type Non-fasti ng 05/02/2018 3:19 PM CDT [facility] Cholesterol 144 mg/dL 05/02/2018 3:19 PM CDT [facility] Comment: Reference Range: Less than 200 mg/dL - desirable 200 - 240 mg/dL - increased risk Above 240 mg/dL - significant risk Triglycerides 350(H) 0 - 150 mg/dL 05/02/2018 3:19 PM CDT [facility] Comment: Reference Ranges: ?? Normal: ?<150 mg/dL ?? Borderline-high: ?150-199 mg/dL ?? High: ? 200-499 mg/dL ?? Very high: ? > or = 500 mg/dL HDL Cholesterol 40 >=40 mg/dL 05/02/2018 3:19 PM CDT [facility] LDL Cholesterol, Calculated 34 <=130 mg/dL 05/02/2018 3:19 PM CDT [facility] Non-HDL Cholesterol, Calculated 104 mg/dL 05/02/2018 3:19 PM CDT [facility] Blood specimen (specimen) Venipuncture / Unknown 05/02/2018 2:45 PM CDT 05/02/2018 2:51 PM CDT us Coco Leos PA-C CHEMISTRY ORDERABLES Final R esult Performing Organization Address City/State/[facility] Co de Phone Number [facility] [address] [address] * ABSTRACTED BY BILLING STAFF (05/11/2017 10:41 AM CDT) Narrative Yana Sweeney MD - 05/11/2017 10:41 AM CDT Yana Sweeney MD ? 05/11/2017 10:41 AM ENDOSCOPY COLONOSCOPY Colonoscopy Procedure Note Date: ??05/03/2017 Referring Physician: Coco Leos ?? Patient: Edilberto Durand PCP: Coco Leos PA-C Age: 61 y.o. Sex: male ??Attending Staff: Yana Mcguire MD : [id number] ??Fellow: none Operation/Procedure: ??Colonoscopy with polypectomy (cold biopsy) Indications: Surveillance after previous colon neoplasia Colorectal Neoplasm Risks: Colorectal Adenoma History: Personal History: Location: [facility]ED[facility]IT Consent for Operation or Procedure: ??The risks, benefits, and alternatives of the procedure and sedative medications were discussed with the patient in detail. ??Potential complications including bleeding, infection, reaction to sedation medication, accidental perforation, or missing lesions were discussed with the patient. All questions were answered. ??Written consent was obtained. ??The patient elected to proceed with the procedure as described. Anesthesia: Proceduralist directed. from 05/03/17 ??9:14 AM to 05/03/17 ??9:33 AM. ?? Adverse Events: None ?? Sedation Medications: 1. Midazolam 10mg IV 2. Fentanyl 75mcg IV ?? Procedure Description: ??Prior to proceeding, the patient's name, date of , and procedure were verified at the time out. ??The patient was then placed in the left lateral decubitus position and adequate sedation was achieved to proceed. A manual rectal examination was performed. ?? The cecum was identified by landmarks including the appendix orifice and the ileocecal valve. ??The colonoscope was then slowly withdrawn and the mucosa was carefully examined. ??Excess air and fluid were removed during colonoscope withdrawal and the procedure terminated. ??The patient was in good condition and was transferred to the recovery area. Colon Preparation: Inadequate: cannot detect polyps of 5 mm in size in some areas Ancillary Maneuvers: Hand pressure Cecum Photograph: Appendiceal orifice and Ileocecal valve Scope Inserted: 05/03/17 ??9:17 AM Pathology Specimens: ??yes Cecum Reached: 05/03/17 ??9:24 AM Endoscopy Complications: ??None Scope Removed: 05/03/17 ??9:33 AM The procedure findings are listed below: ?? Poor prep in cecum, right colon, and transverse colon, good prep in left colon. ?? Exam to cecum ?? Normal appearing mucosa, when visible ?? 3 x 4 mm polyps in descending colon, removed by cold biopsy forceps ?? No diverticula were noted ?? Small external hemorrhoids seen by retroflexion Impression: 1. Poor prep in right and transverse colon 2. 3 descending colon polyps 3. External hemorrhoids Plan: 1. Waiting on path results 2. Repeat in 1 year (2 gallons of PEG electrolyte over 2 days) Yana Barrera MD Clinical Hedge Trimmer Department of Internal Medicine Division of Gastroenterology and Hepatology [address] , [address] [phone] Fax [email or web address] Addendum after Pathology Evaluation: 05/11/2017 10:40 AM Pathology: 3-10 tubular adenomas Repeat colonoscopy: Based on these results, I recommend a repeat colonoscopy in 1 year. Results disclosed by: Mail Results for orders placed or performed in visit on 05/03/17 SURGICAL PATHOLOGY EXAM Result Value Ref Range Case Report ?Surgical Pathology ?Case: [id number] ? Authorizing Provider: ??Yana Sweeney MD ? Collected: ? 05/03/2017 09:38 AM ? Ordering Location: ? [facility] - Procedure Unit ? Received: ? 05/03/2017 02:12 PM ? Pathologist: ? Ishmael Tirado MD ? Specimen: ?Colon, specify, DESCENDING COLON POLYP ? Diagnosis ?Descending colon, biopsy: ??Fragments of tubular adenoma(s). I have personally reviewed this case and edited the report as necessary. Clinical Information Polyp surveillance Jar 1: descending colon polyps ?? Gross Description ?A. ??Received in formalin, in a container labeled Edilberto Durand Rakel, hospital number, and DESCENDING COLON POLYP , are four coyne-pink soft tissue fragments, 0.2 to 0.3 cm in greatest dimension. Submitted in toto in A1. BNS/rls Microscopic Description ?Microscopic examination performed. Performed by: Ishmael Tirado M.D. I have personally reviewed this case and edited the report as necessary. Ishmael Tirado MD us June Coburn MD GI PROCEDURE ORDERABLES Edite d Result - Final * HEPATITIS C ANTIBODY (04/09/2017 5:05 PM CDT) Hepatitis C Antibody Negative Negative 04/09/2017 9:42 PM CDT [facility] Blood specimen (specimen) Venipuncture / Unknown 04/09/2017 5:05 PM CDT 04/09/2017 5:17 PM CDT Coco Leos PA-C CHEMISTRY ORDERABLES Final R esult [facility] [address] [place] [address] from Last 3 Months or Most Recently Relevant to Health Maintenance Insurance [facility] MEDICARE ADVANTAGE [employer] Care Teams Dental Mold Maker Relationship Specialty Start Date End Date Provider, No-Primary Care [place] PCP - General 12/16/22
--- OUTSIDE RECORDS SUMMARY | 2024-11-23 00:12 | XMS_ITS | Encounter Summary ---
Author Organization [facility] Address [address] [place] [address] Phone Care Team Providers Care Nurse Navigator Name Role Phone Coco Méndez PA-C Primary Care Provider [phone] Reason for Visit * Reason Comments Medication Refill Encounter Details Date Type Department Care Team (Late st Contact Info) Description 05/10/[facility] [address] [place] [id number] Nkiko Han, [facility] [address], [place] [id number] Social History Tobacco Use Types Packs/Day Years [...] encounter Miscellaneous Notes * Telephone Encounter - Dayanna Escamilla - 05/11/2018 11:33 AM CDT 05/11/18 11:33am placed 2 Rx's in [facility] folder. Js PATINO * Telephone Encounter - Nikko Han, [facility] - 05/10/2018 4:08 PM CDT [facility] Pain Medication Refill Service - Pharmacist Note Edilberto Hawley is enrolled in the Pain Medication Refill Service and requests renewal of Oxycodone 15mg CR # 60 and oxycodone/apap 10/325mg # 90 for back pain. Level of Analgesia He reports an average pain score after medication of 6 in the last week. Functional Activity Improved abilities: walking, working and sleep Adverse Events Denies over-sedation, confusion, falls and constipation. Aberrant Behavior Last fill 04/09. There are no unexpected entries on the PRESSER HAND and refill frequency is every 30 days. Opioid agreement signed 01/12/[address] Méndez. Urine Drug Screen: positive 07/09/17 as expected. Respiratory Depression Risk Score >3; anti-depressant and long acting opioid prescribed, hospital and emergency visit within last 6 months and history of opioid abuse Morphine equivalent dose is 105 mg/day. 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 Emergency intranasal naloxoneis warranted at this time and is on hand. Prescriptions pended for Dr. Méndez, last visit: 05/02/18; return visit: 06/29/18. Please send orders to [facility] pharmacy for pick-up. Thank you, Zain Han [facility] pharmacy documented in this encounter Plan of Treatment Not on file documented as of this encounter Goals Goal Patient Goal Type Associated Problems Recent Progress Patient-Stated? Author Pain Management - Transcutaneous Electrical Nerve Stimulation (TENS) Pain Management No Coco Méndez PA-C Note: Transcutaneous Electrical Nerve Stimulation (TENS) Unit: Device: Modulated Dual Channel TENS unit (AccuRelief recommended) Frequency: Modulated (P6 recommended for AccuRelief) Electrode Placement: See handout for instructions Duration: 30 minutes, 3-4 times per day while active Intensity: Strong but comfortable Expected length of use: As long as needed Video/Handout: [email or web address] Pain Management - Exercise Pain Management No Coco Méndez PA-C Note: Exercise: General Aerobic ?? Duration: 3 to 5 days per week for 20 minutes per day ?? Intensity: Moderate Strengthening: neither Back nor General (for widespread pain) nor Shoulder ?? Intensity: Moderate ?? Duration: 2 to 4 days per week ?? Instructions: See attached documentation for details Video/Handout: [email or web address] documented as of this encounter Visit Diagnoses Diagnosis Other chronic pain documented in this encounter Additional Health Concerns Assessment Noted Time PHQ-9 Depression Total Score: 3 05/02/20 18 4:27 PM CDT PHQ-2 Depression Total Score: 1 05/02/20 18 4:27 PM CDT documented as of this encounter Care Teams Nurse Navigator Relationship Specialty Start Date End Date Coco Méndez PA-C [address] [place] [address] PCP - General Physician Hardware Installer 02/17/17 12/15/22 documented as of this encounter
--- OUTSIDE RECORDS SUMMARY | 2024-11-23 00:12 | XMS_ITS | CONTINUITY OF CARE DOCUMENT ---
Author Name suzy, suzy Address Unknown Organization [facility] Address [address] [place] [address] Phone [phone] Care Team Providers Care National Account Manager Name Role Phone Ralph Dye MD Unavailable [phone] Ralph Dye MD Unavailable [phone] INSURANCE PROVIDERS Payer name Policy type / Coverage type [employer] party ID [employer] MEDICARE ADVANTAGE [facility] (PPO) Medicare [id number]
--- OUTSIDE RECORDS SUMMARY | 2024-11-23 00:12 | XMS_ITS | Clinical Summary ---
Author Organization [facility] Care Address [address] [place] [address] Phone Care Team Providers Care Intake Coordinator Name Role Phone Provider, No-Primary Care Primary Care Provider Unavailable Source Comments This disclosure is being made pursuant to the Care Everywhere program,applicable federal and state laws, and may not contain all informationavailable regarding this patient.[facility] Practices Allergies No known active allergies Medications omeprazole 20 mg enteric coated capsule Take 20 mg by mouth daily. Active cholecalciferol (VITAMIN D3) 2,000 unit capsule Take 2,000 Units by mouth daily. Active lidocaine 5 % ointmentIndicat ions:Low back pain with radiation, right Apply topically 2 times daily as needed. 35.44 g 11 01/12/2017 5:22 PM WALLET ASSEMBLER 01/12/20 17 Active Additional Information Patient not [...] times daily. 60 capsule 01/11/2018 4:27 PM WALLET ASSEMBLER 01/07/20 18 Active diclofenac 1 % topical gelIndications: Arthritis Apply 4 grams topically 3 times daily. 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 He describes hitting his back on the way down, and landing on his head. He was seen at [facility] in [place]. CT of the lumbar spine on 04/16/2017 was reported as mildly displaced acute fractures of the right L1, L2, and L3 transverse processes. No vertebral body fractures are identified. Multilevel degenerative changes. No critical spinal canal narrowing. Multilevel foraminal narrowing is seen, most pronounced on the right at the L5-S1 where it is likely severe. [employer] provided a custom back brace. Xrays on 04/19/2017 were reported as new superior endplate compression deformity at L3, compared to prior MRI, similar mild retrolisthesis of L2 on L3. He has a history of back pain with right lower extremity radicular pain and had epidural steroid injections that were very helpful. He was seen at [facility] emergency department on 07/25/2016 with a three-day history of right sided thoracic back pain, worse with movements and deep breaths, first noted after hitting his back on a coat rack at work when going from working on his knees to standing. He established care with [facility] internal medicine and receives Oxycodone/acetaminophen 10/325 [...] he had fallen on his buttocks at [employer] the previous day with increased pain to his lower back. Problem Noted Date Diagnosed Date Low back pain 09/29/2017 Closed fracture of transvers e process of lumbar vertebra with routine healing 05/19/2017 Encounter related to worker' s compensation claim 04/16/2017 Back 05/11/2017 detention current use of opiate analgesic 2016 Health [...] Due Influenza, quadrivalent PF 08/09/2017 Tdap 04/16/2017 Family History Medical History Relation Comments Bleeding Prob Mother Depression Mother Relation Status Comments Mother Social History Tobacco Use Types Packs/Day Years [...] 02/15/2018 8:14 AM CDT Plan of Treatment Health Maintenance Due Date Last Done Comments CT Colonography 1998 FIT-DNA 1998 FIT 1998 FOBT 1998 Flex Sigmoidoscopy 1998 Zoster Vaccine (1 of 2) 2003 Colonoscopy 05/11/2018 05/11/2017, 01/25/2017 Colorectal Screening 05/11/2018 Pneumococcal Vaccine (2 of 2 - PCV) 01/21/2019 01/21/2018 Annual Physical Visit 10/14/2022 10/14/2021, 017 Lipid Disorder Screening 05/02/2023 05/02/2018, 12/17 [id number]-[id number]-2 Vaccine ( season) 2024 Influenza Vaccine: Seasonal (#1) 07/16/2024 09/17/2022, 08/23/2020, 11/03/2019, Additional history exists Tetanus Diphtheria Pertussis (2 - Td or Tdap) 04/16/2027 04/16/2017, 05/15/2010 HCV Screening Completed 04/09/2017 Prostate Cancer Screening / Surveillance Discontinued 05/02/2018 Goals Goal Patient Goal Type Associated Problems [...] long as needed Video/Handout: [email or web address]://[facility].[employer]/jtplljx-tmin-yzabvixowc-tens Pain Management - Exercise Pain Management Coco Vega PA-C Note: Exercise: General Aerobic ?? Duration: 3 to 5 days per week for 20 minutes per day ?? Intensity: Moderate Strengthening: neither Back nor General (for widespread pain) nor Shoulder ?? Intensity: Moderate ?? Duration: 2 to 4 days per week ?? Instructions: See attached documentation for details Video/Handout: [email or web address]://[facility].[employer]/jyrtiuh-chei-fptvgprtsr-exercise Procedures Procedure Name Priority Date/Time Associated Diagnosis [...] ORDERABLES Final R esult [facility] [address] [address] * (ABNORMAL) LIPID PANEL (05/02/2018 2:45 PM [...] ORDERABLES Final R esult Performing Organization Address City/State/[facility] de Phone Number [facility] [address] [address] * ABSTRACTED BY BILLING STAFF (05/11/2017 10:41 [...] over 2 days) Yana Barrera MD Clinical Six Sigma Black Belt Engineer Department of Internal Medicine Division of Gastroenterology and Hepatology [address] , [address] [place] [address] Fax [email or web address] Addendum after Pathology Evaluation: 05/11/2017 10:40 AM Pathology: 3-10 tubular adenomas Repeat colonoscopy: Based on these results, I recommend a repeat colonoscopy in 1 year. Results disclosed by: Mail Results for orders placed or performed in visit on 05/03/17 SURGICAL PATHOLOGY EXAM Result Value Ref Range Case Report ?Surgical Pathology ?Case: [id number] ? Authorizing Provider: ??Yana Sweeney MD ? [...] in formalin, in a container labeled Edilberto Durand, hospital number, and DESCENDING COLON POLYP , [...] Antibody Negative Negative 04/09/2017 9:42 PM CDT [facility] Blood specimen (specimen) Venipuncture / Unknown 04/09/2017 5:05 PM CDT 04/09/2017 5:17 PM CDT us Coco Leos PA-C CHEMISTRY ORDERABLES Final R esult Performing Organization Address City/State/[facility] Co de Phone Number [facility] [address] [place] [address] from Last 3 Months or Most Recently Relevant to Health Maintenance Insurance [facility] MEDICARE ADVANTAGE [employer] Care Teams Intake Coordinator Relationship Specialty Start Date End Date Provider, No-Primary Care [place] PCP - General 12/16/22
--- OUTSIDE RECORDS SUMMARY | 2024-11-23 00:12 | XMS_ITS | Encounter Summary ---
Author Organization [facility] Care Address [address] [place] [address] Phone Care Team Providers Care Corporate Administrator Name Role Phone Coco Leos PA-C Primary Care Provider [phone] Provider, No-Primary Care Primary Care Provider Unavailable Reason for Visit * Reason Comments Medication Refill Encounter Details Date Type Department Care Team (Late st Contact Info) Description 06/08/2018 Refill [facility] [address] [place] [address] [place] [phone] Maxine Pope [address] [place] [address] Social History Tobacco Use Types [...] * Telephone Encounter - Dayanna Escamilla - 06/08/2018 1:26 PM CDT Pharmacy is requesting refill of: Oxycodone-APAP, and XR Last visit: 05/02/18 Next visit: 06/29/18 Last written: 05/11/18 Prescription destination: IR 06/09/18 7:35am placed both Rx in [facility] folder. Js MA * Telephone Encounter - Coco Leos PA-C - 06/08/2018 12:42 PM CDT [facility] Pain Medication Refill Service - Pharmacist's Note: Edilberto Hawley is enrolled in the Pain Medication Refill Service and requests renewal of Oxycodone CR 15mg, #60, and Oxycodone/ApAP 10/325mg,#90, for R ankle, R wrist, and L thumb pain. Level of Analgesia He reports an average pain score after medication of 7-8/10 in the last week. Functional Activity Improved abilities: sleep and general activity Adverse Events He reports a couple of falls trying to use his walker. Denies over-sedation, confusion and constipation. Aberrant Behavior Last fill 05/11. There are unexpected entries on the ASSET PROTECTION ASSOCIATE: 05/21 MS CR 30mg, #14/7ds Yifan Portillo, [place] 05/21 OC/APAP 5/325mg, #40/7ds Jovana Griffith Refill frequency previously is every 29-33 days. Opioid agreement signed 01/12/17 with Coco Leos PA-C. Urine Drug Screen: 05/02/18 (+) OC, as expected. Respiratory Depression Risk Score >3; anti-depressant and long acting opioid prescribed, hospital visit within last 6 months, active traumatic injury and history of opioid abuse (OSH 05/21; hx/o MAMPH, MELECIO) Morphine equivalent dose is 90 mg/day. celery cutter is available. Emergency intranasal naloxone is warranted and on hand at this time. Prescriptions pended for Coco Leos PA-C, last visit: 05/02; return visit: 06/29. Please send orders to [facility] pharmacy for [employer]. Thank you, Maxine Pope, Cristina, [facility], BCACP 06/08/2018, 1:26 PM Requesting a refill of: Oxycodone 15mg Last Visit: 05/02/18 Future Appointments: 06/29/18 Last Fill Date: 05/11/18 Pharmacy Fax #: SUK[facility] Pt requested change to long acting morphine as it has been more effective than the long acting oxycontin. Will change to MS ER 30 mg bid and continue the short acting percocet. Outside ID notes reviewed. Coco Leos PA-C, 06/08/2018 5:55 PM documented in this encounter Plan of [...] of use: As long as needed Video/Handout: [email or web address]://[facility].[employer]/kordhwn-lgoi-jlwvqyvlmj-tens Pain Management - Exercise Pain Management No Coco Leos PA-C Note: Exercise: General Aerobic ?? Duration: 3 to 5 days per week for 20 minutes per day ?? Intensity: Moderate Strengthening: neither Back nor General (for widespread pain) nor Shoulder ?? Intensity: Moderate ?? Duration: 2 to 4 days per week ?? Instructions: See attached documentation for details Video/Handout: https://[facility].[employer]/vbawxex-gvvq-gehhnvetuc-exercise documented as of this encounter Visit Diagnoses Diagnosis Staphylococcal arthritis of ankle, unspecified laterality (HCC)- Primary Other chronic pain documented in this encounter Additional Health Concerns Assessment Noted Time PHQ-9 Depression Total Score: 3 05/02/20 18 4:27 PM CDT PHQ-2 Depression Total Score: 1 05/02/20 18 4:27 PM CDT documented as of this encounter Care Teams Corporate Administrator Relationship Specialty Start Date End Date Coco Leos PA-C [address] [place] [id number] PCP - General Physician Systems Accountant 02/17/17 12/15/22 Provider, No-Primary Care [place] PCP - General 12/16/22 documented as of this encounter
--- OUTSIDE RECORDS SUMMARY | 2024-11-23 00:12 | XMS_ITS | Encounter Summary ---
Author Organization [facility] Care Address [address] [place] [address] Phone Care Team Providers Care Order Checker Packer Processer Name Role Phone Coco Leos PA-C Primary Care Provider [phone] Provider, No-Primary Care Primary Care Provider Unavailable Encounter Details Date Type Department Care Team (Late st Contact Info) Description 06/08/2018 Pharmacy Visit RX [facility] [address] [place] [phone] Social History Tobacco Use Types Packs/Day [...] of use: As long as needed Video/Handout: [email or web address]://[facility].org/health-library/wfwhfys-ptiz-ecinsctguo-tens Pain Management - Exercise Pain Management No Coco Leos PA-C Note: Exercise: General Aerobic ?? Duration: 3 to 5 days per week for 20 minutes per day ?? Intensity: Moderate Strengthening: neither Back nor General (for widespread pain) nor Shoulder ?? Intensity: Moderate ?? Duration: 2 to 4 days per week ?? Instructions: See attached documentation for details Video/Handout: [email or web address]://[facility].org/health-library/licwqjq-rmdb-ipinwpuebq-exercise documented as of this encounter Visit Diagnoses Not on filedocumented in this encounter Additional Health Concerns Assessment Noted Time PHQ-9 Depression Total Score: 3 05/02/20 18 4:27 PM CDT PHQ-2 Depression Total Score: 1 05/02/20 18 4:27 PM CDT documented as of this encounter Care Teams Order Checker Packer Processer Relationship Specialty Start Date End Date Coco Leos PA-C [address] [place], [place] [phone] PCP - General Physician Conciliator 02/17/17 12/15/22 Provider, No-Primary Care [place] PCP - General 12/16/22 documented as of this encounter
--- OUTSIDE RECORDS SUMMARY | 2024-11-23 00:12 | XMS_ITS | Encounter Summary ---
Author Organization [facility] Care Address [address] [place] [address] Phone Care Team Providers Care Automation Application Engineer Name Role Phone Coco Leos PA-C Primary Care Provider [phone] Provider, No-Primary Care Primary Care Provider Unavailable Encounter Details Date Type Department Care Team (Late st Contact Info) Description 05/04/2018 Pharmacy Visit RX [facility] [address] [place] [phone] Social History Tobacco Use Types Packs/Day [...] of use: As long as needed Video/Handout: [email or web address].org/health-library/vugtthq-tbtc-dibvwhigum-tens Pain Management - Exercise Pain Management No Coco Leos PA-C Note: Exercise: General Aerobic ?? Duration: 3 to 5 days per week for 20 minutes per day ?? Intensity: Moderate Strengthening: neither Back nor General (for widespread pain) nor Shoulder ?? Intensity: Moderate ?? Duration: 2 to 4 days per week ?? Instructions: See attached documentation for details Video/Handout: [email or web address]://[facility].org/health-library/rgbrqjm-vkcm-fyucfxqzpa-exercise documented as of this encounter Visit Diagnoses Not on filedocumented in this encounter Additional Health Concerns Assessment Noted Time PHQ-9 Depression Total Score: 3 05/02/20 18 4:27 PM CDT PHQ-2 Depression Total Score: 1 05/02/20 18 4:27 PM CDT documented as of this encounter Care Teams Automation Application Engineer Relationship Specialty Start Date End Date Coco Leos PA-C [address] [place], [place] [phone] PCP - General Physician Talent Acquisition Operations Manager 02/17/17 12/15/22 Provider, No-Primary Care [place] PCP - General 12/16/22 documented as of this encounter
--- OUTSIDE RECORDS SUMMARY | 2024-11-23 00:12 | XMS_ITS | Encounter Summary ---
Author Organization [facility] Care Address [address] [place] [address] Phone Care Team Providers Care Computer Customer Support Specialist Name Role Phone Coco Leos PA-C Primary Care Provider [phone] Provider, No-Primary Care Primary Care Provider Unavailable Encounter Details Date Type Department Care Team (Late st Contact Info) Description 05/10/2018 Pharmacy Visit RX [facility] [address] [place] [phone] Social History Tobacco Use Types Packs/Day [...] of use: As long as needed Video/Handout: https://[facility].org/health-library/qpfiutz-xlpm-ywmbkganns-tens Pain Management - Exercise Pain Management No Coco Leos PA-C Note: Exercise: General Aerobic ?? Duration: 3 to 5 days per week for 20 minutes per day ?? Intensity: Moderate Strengthening: neither Back nor General (for widespread pain) nor Shoulder ?? Intensity: Moderate ?? Duration: 2 to 4 days per week ?? Instructions: See attached documentation for details Video/Handout: [email or web address]://[facility].org/health-library/tfunasc-khnr-dvgwnimqkz-exercise documented as of this encounter Visit Diagnoses Not on filedocumented in this encounter Additional Health Concerns Assessment Noted Time PHQ-9 Depression Total Score: 3 05/02/20 18 4:27 PM CDT PHQ-2 Depression Total Score: 1 05/02/20 18 4:27 PM CDT documented as of this encounter Care Teams Computer Customer Support Specialist Relationship Specialty Start Date End Date Coco Leos PA-C [address] [place], [place] [phone] PCP - General Physician Reception Clerk 02/17/17 12/15/22 Provider, No-Primary Care [place] PCP - General 12/16/22 documented as of this encounter
--- OUTSIDE RECORDS SUMMARY | 2024-11-23 00:12 | XMS_ITS | Encounter Summary ---
Author Organization [facility] Care Address [address] [place] [address] Phone Care Team Providers Care Wildlife Rehabilitator Name Role Phone Coco Leos PA-C Primary Care Provider [phone] Provider, No-Primary Care Primary Care Provider Unavailable Encounter Details Date Type Department Care Team (Late st Contact Info) Description 09/15/2018 Pharmacy Visit RX [facility] [address] [place] [phone] Social History Tobacco Use Types Packs/Day [...] of use: As long as needed Video/Handout: https://[facility].org/health-library/hfsenrz-tcxv-zofogolmlc-tens Pain Management - Exercise Pain Management No Coco Leos PA-C Note: Exercise: General Aerobic ?? Duration: 3 to 5 days per week for 20 minutes per day ?? Intensity: Moderate Strengthening: neither Back nor General (for widespread pain) nor Shoulder ?? Intensity: Moderate ?? Duration: 2 to 4 days per week ?? Instructions: See attached documentation for details Video/Handout: https://[facility].org/health-library/cgghrny-ukno-oxseuvtduc-exercise documented as of this encounter Visit Diagnoses Not on filedocumented in this encounter Additional Health Concerns Assessment Noted Time PHQ-9 Depression Total Score: 3 05/02/20 18 4:27 PM CDT PHQ-2 Depression Total Score: 1 05/02/20 18 4:27 PM CDT documented as of this encounter Care Teams Wildlife Rehabilitator Relationship Specialty Start Date End Date Coco Leos PA-C [address] [place], [place] [phone] PCP - General Physician Brake Repairer Railroad 02/17/17 12/15/22 Provider, No-Primary Care [place] PCP - General 12/16/22 documented as of this encounter
--- OUTSIDE RECORDS SUMMARY | 2024-11-23 00:12 | XMS_ITS | Encounter Summary ---
Author Organization [facility] Care Address [address] [place] [address] Phone Care Team Providers Care Assembly Line Worker Name Role Phone Coco Leos PA-C Primary Care Provider [phone] Provider, No-Primary Care Primary Care Provider Unavailable Encounter Details Date Type Department Care Team (Late st Contact Info) Description 06/10/2018 Pharmacy Visit RX [facility] [address] [place] [phone] Social History Tobacco Use Types Packs/Day [...] of use: As long as needed Video/Handout: https://[facility].org/health-library/gtsudkg-irun-wwnrhnpfeb-tens Pain Management - Exercise Pain Management No Coco Leos PA-C Note: Exercise: General Aerobic ?? Duration: 3 to 5 days per week for 20 minutes per day ?? Intensity: Moderate Strengthening: neither Back nor General (for widespread pain) nor Shoulder ?? Intensity: Moderate ?? Duration: 2 to 4 days per week ?? Instructions: See attached documentation for details Video/Handout: https://[facility].org/health-library/qntownn-lcmy-nbebflkhei-exercise documented as of this encounter Visit Diagnoses Not on filedocumented in this encounter Additional Health Concerns Assessment Noted Time PHQ-9 Depression Total Score: 3 05/02/20 18 4:27 PM CDT PHQ-2 Depression Total Score: 1 05/02/20 18 4:27 PM CDT documented as of this encounter Care Teams Assembly Line Worker Relationship Specialty Start Date End Date Coco Leos PA-C [address] [place], [place] [phone] PCP - General Physician Gunstock Spray Unit Adjuster 02/17/17 12/15/22 Provider, No-Primary Care [place] PCP - General 12/16/22 documented as of this encounter
--- OUTSIDE RECORDS SUMMARY | 2024-11-23 00:12 | XMS_ITS | Encounter Summary ---
Author Organization [facility] Care Address [address] [place] [address] Phone Care Team Providers Care Flue Tile Press Operator Name Role Phone Coco Leos PA-C Primary Care Provider [phone] Provider, No-Primary Care Primary Care Provider Unavailable Encounter Details Date Type Department Care Team (Late st Contact Info) Description 11/21/[address] [facility] [address] [place] [phone] Social History Tobacco Use Types Packs/Day [...] As long as needed Video/Handout: https://[facility].org/health-library/yvlvieq-gqxb-lglnuqovjj-tens Pain Management - Exercise Pain Management No Coco Leos PA-C Note: Exercise: General Aerobic ?? Duration: 3 to 5 days per week for 20 minutes per day ?? Intensity: Moderate Strengthening: neither Back nor General (for widespread pain) nor Shoulder ?? Intensity: Moderate ?? Duration: 2 to 4 days per week ?? Instructions: See attached documentation for details Video/Handout: https://[facility].org/health-library/ohvsnnl-vowf-cqipmuxsyw-exercise documented as of this encounter Visit Diagnoses Not on filedocumented in this encounter Additional Health Concerns Assessment Noted Time PHQ-9 Depression Total Score: 3 05/02/20 18 4:27 PM CDT PHQ-2 Depression Total Score: 1 05/02/20 18 4:27 PM CDT documented as of this encounter Care Teams Flue Tile Press Operator Relationship Specialty Start Date End Date Coco Leos PA-C [address] [place], [place] [phone] PCP - General Physician Special Service Officer 02/17/17 12/15/22 Provider, No-Primary Care [place] PCP - General 12/16/22 documented as of this encounter
--- OUTSIDE RECORDS SUMMARY | 2024-11-23 00:12 | XMS_ITS | Encounter Summary ---
Author Organization [facility] Care Address [address] [place] [address] Phone Care Team Providers Care Gaggerman Name Role Phone Coco Leos PA-C Primary Care Provider [phone] Provider, No-Primary Care Primary Care Provider Unavailable Encounter Details Date Type Department Care Team (Late st Contact Info) Description 05/11/2018 Pharmacy Visit RX [facility] [address] [place] [phone] Social History Tobacco Use Types Packs/Day [...] of use: As long as needed Video/Handout: https://[facility].org/health-library/xkqtkxw-csty-uztxmiddmn-tens Pain Management - Exercise Pain Management No Coco Leos PA-C Note: Exercise: General Aerobic ?? Duration: 3 to 5 days per week for 20 minutes per day ?? Intensity: Moderate Strengthening: neither Back nor General (for widespread pain) nor Shoulder ?? Intensity: Moderate ?? Duration: 2 to 4 days per week ?? Instructions: See attached documentation for details Video/Handout: https://[facility].org/health-library/tqqcogp-yhtd-cdyqotwffe-exercise documented as of this encounter Visit Diagnoses Not on filedocumented in this encounter Additional Health Concerns Assessment Noted Time PHQ-9 Depression Total Score: 3 05/02/20 18 4:27 PM CDT PHQ-2 Depression Total Score: 1 05/02/20 18 4:27 PM CDT documented as of this encounter Care Teams Gaggerman Relationship Specialty Start Date End Date Coco Leos PA-C [address] [place], [place] [phone] PCP - General Physician Car Customizer 02/17/17 12/15/22 Provider, No-Primary Care [place] PCP - General 12/16/22 documented as of this encounter
--- OUTSIDE RECORDS SUMMARY | 2024-11-23 00:12 | XMS_ITS | Encounter Summary ---
Author Organization [facility] Care Address [address] [place] [address] Phone Care Team Providers Care Spragger Name Role Phone Coco Leos PA-C Primary Care Provider [phone] Provider, No-Primary Care Primary Care Provider Unavailable Encounter Details Date Type Department Care Team (Late st Contact Info) Description 06/09/2018 Pharmacy Visit RX [facility] [address] [place] [phone] Social History Tobacco Use Types Packs/Day [...] of use: As long as needed Video/Handout: [email or web address]-library/[email or web address]-vugk-tbleelpmjf-tens Pain Management - Exercise Pain Management No Coco Leos PA-C Note: Exercise: General Aerobic ?? Duration: 3 to 5 days per week for 20 minutes per day ?? Intensity: Moderate Strengthening: neither Back nor General (for widespread pain) nor Shoulder ?? Intensity: Moderate ?? Duration: 2 to 4 days per week ?? Instructions: See attached documentation for details Video/Handout: [email or web address].org/health-library/yhykkdt-vjwj-hguozwbjqo-exercise documented as of this encounter Visit Diagnoses Not on filedocumented in this encounter Additional Health Concerns Assessment Noted Time PHQ-9 Depression Total Score: 3 05/02/20 18 4:27 PM CDT PHQ-2 Depression Total Score: 1 05/02/20 18 4:27 PM CDT documented as of this encounter Care Teams Spragger Relationship Specialty Start Date End Date Coco Leos PA-C [address] [place], [place] [phone] PCP - General Physician Meat Specialist 02/17/17 12/15/22 Provider, No-Primary Care [place] PCP - General 12/16/22 documented as of this encounter
--- OUTSIDE RECORDS SUMMARY | 2024-11-23 00:12 | XMS_ITS | Encounter Summary ---
Author Organization [facility] Care Address [address] [place] [address] Phone Care Team Providers Care Medical Technician Assistant Name Role Phone Coco Leos PA-C Primary Care Provider [phone] Provider, No-Primary Care Primary Care Provider Unavailable Reason for Visit * Reason Comments Med Request Encounter Details Date Type Department Care Team (Late st Contact Info) Description 05/03/2018 [facility] - Procedure Unit [address] [phone] Ivy Burr [address] [place] [address] Social History Tobacco Use Types [...] As long as needed Video/Handout: [email or web address]/Social Bicycleslibrary/ejlrevp-zquv-vcieqfuzdb-tens Pain Management - Exercise Pain Management No Coco Leos PA-C Note: Exercise: General Aerobic ?? Duration: 3 to 5 days per week for 20 minutes per day ?? Intensity: Moderate Strengthening: neither Back nor General (for widespread pain) nor Shoulder ?? Intensity: Moderate ?? Duration: 2 to 4 days per week ?? Instructions: See attached documentation for details Video/Handout: [email or web address]://[email or web address]/[employer])/idhthfl-wthc-kipaoztxee-exercise documented as of this encounter Visit Diagnoses Diagnosis Colon cancer screening- Primary Special screening for malignant neoplasms, colon documented in this encounter Additional Health Concerns Assessment Noted Time PHQ-9 Depression Total Score: 3 05/02/20 18 4:27 PM CDT PHQ-2 Depression Total Score: 1 05/02/20 18 4:27 PM CDT documented as of this encounter Care Teams Medical Technician Assistant Relationship Specialty Start Date End Date Coco Leos PA-C [address] [place] [address] PCP - General Physician Mold Construction Supervisor 02/17/17 12/15/22 Provider, No-Primary Care [place] PCP - General 12/16/22 documented as of this encounter
--- OUTSIDE RECORDS SUMMARY | 2024-11-23 00:13 | XMS_ITS | Encounter Summary ---
Author Organization [facility] Care Address [address] [place] [address] Phone Care Team Providers Care Kitchen Steward Name Role Phone Coco Leos PA-C Primary Care Provider [phone] Provider, No-Primary Care Primary Care Provider Unavailable Encounter Details Date Type Department Care Team (Late st Contact Info) Description 01/05/2018 Pharmacy Visit RX [facility] [address] [place] [phone] Social History Tobacco Use Types Packs/Day [...] Assessment Noted Time PHQ-9 Depression Total Score: 12 018 12:31 PM EGG AND SPICE MIXER PHQ-2 Depression Total Score: 5 11/16/19 18 12:31 PM EGG AND SPICE MIXER documented as of this encounter Care Teams Kitchen Steward Relationship Specialty Start Date End Date Coco Leos PA-C [address] [place], [place] [phone] PCP - General Physician Stamping Bench Die Maker 02/17/17 12/15/22 Provider, No-Primary Care [place] PCP - General 12/16/22 documented as of this encounter
--- OUTSIDE RECORDS SUMMARY | 2024-11-23 00:13 | XMS_ITS | Encounter Summary ---
Author Organization [facility] Care Address [address] [place] [address] Phone Care Team Providers Care Hair Dryer Name Role Phone Coco Leos PA-C Primary Care Provider [phone] Provider, No-Primary Care Primary Care Provider Unavailable Encounter Details Date Type Department Care Team (Late st Contact Info) Description 01/11/[address] [facility] [address] [place] [phone] Social History Tobacco Use Types Packs/Day [...] Assessment Noted Time PHQ-9 Depression Total Score: 14 018 12:18 PM FOOTWEAR STITCHER PHQ-2 Depression Total Score: 5 01/07/20 18 12:18 PM FOOTWEAR STITCHER documented as of this encounter Care Teams Hair Dryer Relationship Specialty Start Date End Date Coco Leos PA-C [address] [place], [place] [phone] PCP - General Physician Manager Recruitment 02/17/17 12/15/22 Provider, No-Primary Care [place] PCP - General 12/16/22 documented as of this encounter
--- OUTSIDE RECORDS SUMMARY | 2024-11-23 00:13 | XMS_ITS | Encounter Summary ---
Author Organization [facility] Care Address [address] [place] [address] Phone Care Team Providers Care Assistant Merchandiser Name Role Phone Coco Leos PA-C Primary Care Provider [phone] Provider, No-Primary Care Primary Care Provider Unavailable Encounter Details Date Type Department Care Team (Late st Contact Info) Description 04/29/2018 Pharmacy Visit RX [facility] [address] [place] [phone] Social History Tobacco Use Types Packs/Day [...] of use: As long as needed Video/Handout: [email or web address]/health-library/kpkaina-lpqj-wczwdcyixi-tens Pain Management - Exercise Pain Management No Coco Leos PA-C Note: Exercise: General Aerobic ?? Duration: 3 to 5 days per week for 20 minutes per day ?? Intensity: Moderate Strengthening: neither Back nor General (for widespread pain) nor Shoulder ?? Intensity: Moderate ?? Duration: 2 to 4 days per week ?? Instructions: See attached documentation for details Video/Handout: [email or web address]/health-library/bklmzln-asyw-nsawtlnxir-exercise documented as of this encounter Visit Diagnoses Not on filedocumented in this encounter Additional Health Concerns Assessment Noted Time PHQ-9 Depression Total Score: 14 018 12:18 PM HYDROGEN CELL TENDER PHQ-2 Depression Total Score: 5 01/07/20 18 12:18 PM HYDROGEN CELL TENDER documented as of this encounter Care Teams Assistant Merchandiser Relationship Specialty Start Date End Date Coco Leos PA-C [address] [place] [id number] PCP - General Physician Painter Railroad Car 02/17/17 12/15/22 Provider, No-Primary Care [place] PCP - General 12/16/22 documented as of this encounter
--- OUTSIDE RECORDS SUMMARY | 2024-11-23 00:13 | XMS_ITS | Encounter Summary ---
Author Organization [facility] Care Address [address] [place] [address] Phone Care Team Providers Care Instrument And Controls Technician Name Role Phone Coco Leos PA-C Primary Care Provider [phone] Reason for Visit * Reason Comments Medication Refill Encounter Details Date Type Department Care Team (Late st Contact Info) Description 02/07/2018 Refill [facility] [address] [facility] [address] [place] [phone] Coco Leos PA-C [address] [place] [address] Social History Tobacco Use Types [...] * Telephone Encounter - Dayanna Escamilla - 02/07/2018 5:39 PM CDT 02/07/18 17:39 Placed Rx's in blue pod folder for pharmacy to order picker. Js PATINO * Telephone Encounter - Dayanna Escamilla - 02/07/2018 1:50 PM CDT Pharmacy is requesting refill of: Naloxone, Oxycodone, Oxycotin Last visit: 01/07/18 Next visit: 03/11/18 Last written: 02/10/17 Prescription destination: [facility] Pain Medication Refill Service - Pharmacist's Note: Edilberto Hawley is enrolled in the Pain Medication Refill Service and requests renewal of Oxycodone CR 15mg, #60, and Oxycodone/APAP 10/325mg,#90, for L shoulder and back pain. He did not use the naloxone, however, the adapters have become discolored, and he'd like two new ones. The vials of naloxone are fine. He has rescheduled the Pain Clinic visit for 02/15 and hopes to have a spinal injection at that time. Level of Analgesia He reports an average pain score after medication of 7/10 in the last week. Functional Activity Improved abilities: walking, working, sleep and general activity Adverse Events Denies over-sedation, confusion, falls and constipation. Aberrant Behavior Last fill 01/10. There are no unexpected entries on the SHUTDOWN COORDINATOR and refill frequency is every 30-31 days. Opioid agreement signed 01/12/17 with Coco Leos PA-C. Urine Drug Screen: 07/09/17 (+) OC, OM, nor-OC and nor-OM, as expected. Respiratory Depression Risk Score 3; anti-depressant and long acting opioid prescribed and history of opioid abuse (hx/o MELECIO & MAMPH) Morphine equivalent dose is 90 mg/day. engineering tech is available. Emergency intranasal naloxone is warranted and on hand at this time. Prescriptions pended for Coco Leos, last visit: 01/07; return visit: 03/11. Please send orders to [facility] pharmacy for [employer]. Thank you, Cristina George, [facility], BCACP documented in this encounter Plan of Treatment Not on file documented as of this encounter Visit Diagnoses Diagnosis Other chronic pain documented in this encounter Additional Health Concerns Assessment Noted Time PHQ-9 Depression Total Score: 14 018 12:18 PM IRRIGATION MANAGER PHQ-2 Depression Total Score: 5 01/07/20 18 12:18 PM IRRIGATION MANAGER documented as of this encounter Care Teams Instrument And Controls Technician Relationship Specialty Start Date End Date Coco Leos PA-C [address] [place] [id number] PCP - General Physician Billing Rep 02/17/17 12/15/22 documented as of this encounter
--- OUTSIDE RECORDS SUMMARY | 2024-11-23 00:13 | XMS_ITS | Encounter Summary ---
Author Organization [facility] Care Address [address] [place] [address] Phone Care Team Providers Care Punch Molder Name Role Phone Coco Leos PA-C Primary Care Provider [phone] Reason for Visit * Reason Comments Med Request Encounter Details Date Type Department Care Team (Late st Contact Info) Description 03/11/2018 Telephone [facility] [address] [place] [address] [place] [phone] Coco Leso PA-C [address] [place] [address] Social History Tobacco Use Types [...] * Telephone Encounter - Dayanna Escamilla - 03/11/2018 8:19 AM CDT 03/11/2018 Edilberto Hawley is requesting refill for: Oxycontin, and Percocet Last visit: Pain Clinic 02-15-18, Family Med 01-07-18 Next visit: 03-28-18 Last written: 02-09-18 Prescription destination: Pt has Pain Clinic appt today and would like to cook pickled meat today. MJ. Kun, RN 03/11/2018, 8:30 AM I have renewed, gave to Valentina Escamilla. Coco Leos PA-C, 03/11/2018 9:40 AM 03/11/18 10:33am placed in blue pharmacy folder. Js MA documented in this encounter Plan of Treatment [...] long as needed Video/Handout: [email or web address]/Miracul[employer]/zyqyqxg-glbs-puwxpcadbx-tens Pain Management - Exercise Pain Management No Coco Leos PA-C Note: Exercise: General Aerobic ?? Duration: 3 to 5 days per week for 20 minutes per day ?? Intensity: Moderate Strengthening: neither Back nor General (for widespread pain) nor Shoulder ?? Intensity: Moderate ?? Duration: 2 to 4 days per week ?? Instructions: See attached documentation for details Video/Handout: [email or web address].[email or web address]/Seaf[employer] Adventurerslibrary/tzfptjb-enzi-stbocrtmkf-exercise documented as of this encounter Visit Diagnoses Diagnosis Other chronic pain documented in this encounter Additional Health Concerns Assessment Noted Time PHQ-9 Depression Total Score: 14 02/23/2 018 12:18 PM BUSINESS PROCESS SPECIALIST PHQ-2 Depression Total Score: 5 01/07/20 18 12:18 PM BUSINESS PROCESS SPECIALIST documented as of this encounter Care Teams Punch Molder Relationship Specialty Start Date End Date Coco Leos PA-C [address] [place] [phone] PCP - General Physician Children'S Counselor 02/17/17 12/15/22 documented as of this encounter
--- OUTSIDE RECORDS SUMMARY | 2024-11-23 00:13 | XMS_ITS | Encounter Summary ---
Author Organization [facility] Care Address [address] [place] [address] Phone Care Team Providers Care Senior Manager Name Role Phone Coco Leos PA-C Primary Care Provider [phone] Provider, No-Primary Care Primary Care Provider Unavailable Encounter Details Date Type Department Care Team (Late st Contact Info) Description 04/04/2018 Pharmacy Visit RX [facility] [address] [place] [phone] Social History Tobacco Use Types Packs/Day [...] Depression Total Score: 14 018 12:18 PM RN MED SURG PHQ-2 Depression Total Score: 5 01/07/20 18 12:18 PM RN MED SURG documented as of this encounter Care Teams Senior Manager Relationship Specialty Start Date End Date Coco Leos PA-C [address] [place], [place] [phone] PCP - General Physician Reel Slitter 02/17/17 12/15/22 Provider, No-Primary Care [place] PCP - General 12/16/22 documented as of this encounter
--- OUTSIDE RECORDS SUMMARY | 2024-11-23 00:13 | XMS_ITS | Encounter Summary ---
Author Organization [facility] Care Address [address] [place] [address] Phone Care Team Providers Care Runstitching Machine Operator Name Role Phone Coco Leos PA-C Primary Care Provider [phone] Provider, No-Primary Care Primary Care Provider Unavailable Encounter Details Date Type Department Care Team (Late st Contact Info) Description 04/06/2018 Pharmacy Visit RX [facility] [address] [place] [phone] Social History Tobacco Use Types Packs/Day [...] Depression Total Score: 14 018 12:18 PM WORM RAISER PHQ-2 Depression Total Score: 5 01/07/20 18 12:18 PM WORM RAISER documented as of this encounter Care Teams Runstitching Machine Operator Relationship Specialty Start Date End Date Coco Leos PA-C [address] [place], [place] [phone] PCP - General Physician Splunk Architect 02/17/17 12/15/22 Provider, No-Primary Care [place] PCP - General 12/16/22 documented as of this encounter
--- OUTSIDE RECORDS SUMMARY | 2024-11-23 00:13 | XMS_ITS | Encounter Summary ---
Author Organization [facility] Care Address [address] [place] [address] Phone Care Team Providers Care Assisted Living Housekeeper Name Role Phone Coco Leos PA-C Primary Care Provider [phone] Provider, No-Primary Care Primary Care Provider Unavailable Encounter Details Date Type Department Care Team (Late st Contact Info) Description 01/07/2018 Pharmacy Visit RX [facility] [address] [place] [phone] Social History Tobacco Use Types Packs/Day [...] Depression Total Score: 14 018 12:18 PM FIRST FRONT VENTILATOR PHQ-2 Depression Total Score: 5 01/07/20 18 12:18 PM FIRST FRONT VENTILATOR documented as of this encounter Care Teams Assisted Living Housekeeper Relationship Specialty Start Date End Date Coco Leos PA-C [address] [place], [place] [phone] PCP - General Physician Dude Ranch Manager 02/17/17 12/15/22 Provider, No-Primary Care [place] PCP - General 12/16/22 documented as of this encounter
--- OUTSIDE RECORDS SUMMARY | 2024-11-23 00:13 | XMS_ITS | Encounter Summary ---
Author Organization [facility] Address [address] [place] [address] Phone Care Team Providers Care Printing Sign Machine Operator Name Role Phone Coco Leos PA-C Primary Care Provider [phone] Reason for Visit * Reason Comments Patient Reported Reason For Visit f/u MR I - having neck pain as well Encounter Details Date Type Department Care Team (Late st Contact Info) Description 01/12/2018 3:00 PM BOWL SANDER Office Visit [facility] - Chronic Pain [address] [place] [address] Chris Sanchez MD [address] [place] [address] Social History Tobacco Use Types Packs/Day Years [...] Sign Reading Time Taken Comments Blood Pressure 127/90 01/12/2018 2:57 PM BOWL SANDER Pulse 79 01/12/2018 2:57 PM BOWL SANDER Temperature 36.7 ??C (98.1 ??F) 01/12/2018 2:57 PM CS T Respiratory Rate - - Oxygen Saturation 95% 01/12/2018 2:57 PM BOWL SANDER Inhaled Oxygen Concentration - - Weight 91.6 kg (201 lb 15.1 oz) 01/12/2018 2:57 PM BOWL SANDER Height 180.3 cm (5' 10.98 ) 01/12/2018 2:[address] Body Mass Index 28.18 01/12/2018 2:57 PM BOWL SANDER documented in this encounter Patient Instructions * Discharge Instructions* Lissa Rollins MD - 01/12/2018 3:39 PM BOWL SANDER The following treatment recommendations were discussed in detail with Mr. Edilberto Hawley. Imaging: I have reviewed Mr. Edilberto Hawley's imaging and results were discussed with him today. Analgesics: Patient is managing his pain currently with use of oxycontin and oxyIR. He is instructed to continue as directed by prescribing MD. Patient is advised to avoid escalating doses. Patient is advised tocontact prescribing MD for future prescriptions. If opioid decrease is desired, then patient???s opioids should be tapered slowly downward and eventually decreased to minimal dosage. Opioids can be tapered 10- 15% every 2 days without opioids withdrawal. Patient is taking Acetaminophen. Patient informed that the maximum amount of acetaminophen taken agustin regular basis should only be 3000 mg per day. Adjuvants: For his chronic pain with associated depression, the patient is advised to continue amytryptiline and Cymbalta. For his continued chronic pain with associated musculoskeletal component, the patient is advised tocontinue baclofen. Patient is also using lidocaine ointment. Interventions: In presence of lumbosacral radiating pain, the option of lumbar epidural steroid injection through transforaminal approach at left L3 and LF was chosen. The risks and benefits were discussed in detail with the patient. Patient wants to proceed with this injection during the next visit. - No Ibuprofen or 2 days. No Aleve for 7 days. Please bring a special education bus driver. Multidisciplinary Pain Management: In the presence of complex, chronic, and multi-factorial pain, the importance of a multidisciplinary approach to pain management in the patient???s management regimen was emphasized and discussed in great detail. - The patient was advised to see a physical therapist for gentle stretching exercises and conditioning exercises for management of pain. - The patient was also advised to continue physical therapy and stretching exercises at home. Referrals Provided: ?? None Prescriptions Written This Visit: No prescription provided by the pain clinic. Work Status: Patient should resume same work status with unchanged restrictions after today's visitas prescibed by patient's prior provider on prior visits with them. Follow-up: For Left L3 and L4 TFESI. SANDER * Patient Instructions* Lissa Rollins MD - 01/12/2018 3:37 PM BOWL SANDER Routine Prep If you do not follow these instructions, you may not be able to have your procedure at the scheduled time. Keypunch Operator on the day of your procedure: ??? You cannot drive, take a taxi or bus or leave the hospital alone. A special education bus driver must come with you. ??? If you do not have a special education bus driver with you, your procedure cannot be done. Diet Eat and drink as normal on the day of your procedure. Medicines Your medicines may need to stop or change before your procedure. Call us at least 3 weeks before your procedure if you take: ??? Blood thinners such as Coumadin??(Warfarin), Plavix??(Clopidogrel), Lovenox??(Enoxaparin), Xarelto??(Rivaroxaban), Pradaxa??(Dabigatran) and Eliquis??(Apixaban). Call us at least 2 weeks before your procedure if you take: ??? NSAIDS such as Advil/Motrin??(Ibuprofen), Mobic??(Meloxicam), Aleve??(Naproxen), Voltaren?? (Diclofenac). ??? Garlic ??? Gingko Biloba ??? Ginseng ??? Fish Oil ??? Other Herbs or Supplements Take all of your other medicines as prescribed by your doctor the day of your procedure. Call us at least 2 weeks before your procedure if: ??? Are allergic to contrast dye, iodine or shellfish ??? Are or think you may be ??? Have an infection of any kind and/or are on antibiotics If you have been asked to call us or have questions, call: Pain Management Clinic nurses line at [phone]. Leave your: ??? Name (please spell it) ??? Birthdate ??? A phone number to call you back Reviewed with patient/caregiver/HC Hand Mixer and understanding verbalized. Copy provided. Revised [facility] 03/31 SANDER documented in this encounter Progress Notes * Chris Sanchez MD - 01/12/2018 3:00 PM CST Chronic Pain (Clinic/Consult Note) Encounter Date: 01/12/2018 Subjective: Chief Complaint: Back and lower extremity pain History of Present Illness: Mr. Edilberto Hawley is a 62 y.o. male seen in the Pain Clinic initially on 12/28/2017 upon request from MICHELA Leosfor his history of back and lower extremity pain. He has been experiencing chronic back and extremity pain for years, for which he takes neuropathic medications and is on an opioid contract with his primary care provider. Patient's primary concerns are his lower extremity pain that has been present since involvement in a work-related injury in April 2017. Patient was last seen on 12/28/17. At that time, we ordered a lumbar MRI due to new onlset LLE painand weakness. Patient returns to clinic and reports no change in symptoms. He states he hurts everywhere, has a terrible headache on the left side, and ringing in his ears. He states all of this has worsened sincehis accident. He adds that he is here to discuss the results of his MRI. He states his low back pain has not changes. He continues to have burning pain that radiates down the left leg in the anteromed ial thigh and courses medially distal to the ankle. Today, he denies any associated numbness or weakness. He denies any saddle anesthesia, or bowel/bladder accident. He adds that he has had some dizziness that he has been evaluated for with no identifiable cause. He states he has lost 54% of his balance his the accident. He fees that the dizziness and the balanceare independent of each other. Patient Pain Questionnaire: PAIN CLINIC EVALUATION 01/12/2018 Briefly describe your pain: 8 What event/s led to present pain?: Accident at work Pain Clinic expectation: Better pain control Receiving compensation/disability payments?: No Legal action pending related to this pain or any health provider?: Yes Contacted bee rancher regarding pain?: Yes Pain pattern: Always present How often does pain occur?: Several times a day How long does pain last?: Hours Pain usually worse during certain times of day?: Evening What best describes characteristic(s) of your pain?: Throbbing, Shooting, Stabbing, Cramping, Aching, Splitting, Tiring exhausting Current pain intensity: 8 Best pain score in past month: 5 Worst pain score in past month: 10 Average daily pain score: 7 Pain gets WORSE with the following: Walking, Standing, Lifting, Bending, Cough/sneeze, Weather change Pain gets BETTER with the following: Lying, Heat, Medicine There is NO change in pain with any of the following: Walking, Standing, Sitting, Lifting, Bending,Cough/sneeze Pain interferes with going to work: Quite a bit Pain interferes with performing statistics teacher: Quite a bit Pain interferes with yard work or shopping: Quite a bit Pain interferes with socializing with friends: Moderately Pain interferes with recreation/hobbies: Quite a bit Pain interferes with sexual relationships: Quite a bit Pain interferes with physical exercises: Quite a bit Pain interferes with sleep: Quite a bit Pain interferes with appetite: Moderately Current Complaints of Pain: Location: Left low back Radiation: Left lower extremity down to the medial aspect of left ankle Severity: 8/10 Character/Quality: Complains of pain that is burning. Timing: continuous and fluctuating Associated symptoms: Left lower extremity weakness. Exacerbating factors: activity Alleviating factors: rest and medications Length of time pain has been present: April 2017 Inciting event/injury: Work related injury Bowel/Bladder incontinence: No Weakness/Falls: Yes - Stable left lower extremity weakness Sleep: Pain frequently interferes with sleep. Physicial Therapy: He is doing physical therapy/home exercises. Smoker: N/A History of Intervention: Surgery: Left total hip arthroplasty Injections: Previous epidural steroid injections but none since injury in April 2017 Current Treatment Medications: amitriptyline baclofen duloxetine OxyContin 15 mg twice a day oxycodone-acetaminophen 10-325 1 table q4H prn topical lidocaine and capsaicin. Patient's current pain medications as stated in medication list are providing some benefit. Medication side effects: No Historical Treatment Medications: Gabapentin - sedation Imaging: Lumbar MRI 12/28/17: T12-L1: There is no significant disc disease or stenosis. L1-L2: There is no significant disc disease or stenosis. L2-L3: Mild circumferential disc bulging is present. No significant central spinal or foraminal narrowing. L3-L4: New from the prior exam is a right paracentral disc extrusion that extends inferiorly behindthe L4 vertebral body. This causes moderate to severe narrowing of the right lateral recess. Laterally the neural foramen demonstrate severely narrowing on the left and mild narrowing of inferiorly on the right. The left-sided neural foraminal narrowing appears similar to prior. L4-L5: There is a small annular tear. Very mild disc bulging is seen. Laterally the neural foramen are open. L5-S1: There is mild posterior disc bulging. Laterally the neural foramen demonstrate mild narrowing on the left and severe narrowing on the right this right-sided neural foraminal narrowing appears similar. ?? IMPRESSION Impression: ?? 1. New from the prior exam is a right posterior paracentral disc extrusion at L3-4 which extends inferiorly behind the L4 vertebral body and moderately to severely narrows the right lateral recess. 2. Severe neural foraminal narrowing on the left at L3-4 and on the right at L5- S1, similar to prior. Cervical MRI 01/12/18 C2-C3: No significant disc disease or stenosis. C3-C4: No significant disc disease or stenosis. There is moderate neural foraminal narrowing bilaterally. C4-C5: Posterior disc osteophytic complex causes mild central spinal stenosis. Laterally the neuralforamen show severe narrowing Bilaterally.. C5-C6: Posterior circumferential disc bulge causes minimal effacement of the anterior thecal sac laterally the neural foramen show moderate narrowing on the right and mild to moderate narrowing on the left. C6-C7: Posterior disc osteophyte complex causes moderate central spinal stenosis. The foramen demonstrate mild narrowing on the right and mild to moderate narrowing on the left. C7-T1: No significant disc disease or stenosis. ?? IMPRESSION Impression: ?? 1. The most significant central spinal stenosis is at C6-7 with moderate stenosis. 2. The neural foramen show severe bilateral narrowing at C4-5 with moderate narrowing at C34 and C5-6. Active Problem List Diagnosis Code ??? Health care maintenance Z00.00 ??? Chronic pain G89.29 ??? History of left hip replacement Z96.642 ??? History of repair of left rotator cuff Z98.890 ??? Encounter related to worker's compensation claim 04/16/2017 Back Z02.6 ??? care home current use of opiate analgesic Z79.891 ??? Closed fracture of transverse process of lumbar vertebra with routine healing S32.009D ??? Low back pain M54.5 Past Surgical History: Procedure Laterality Date ??? ELBOW SURGERY Left ??? JOINT REPLACEMENT ??? REVISION TOTAL HIP ARTHROPLASTY Left ??? SHOULDER SURGERY ??? TONSILLECTOMY ??? UPPER ENDOSCOPY ??? VASECTOMY Family History Problem Relation Age of Onset ??? Bleeding Prob Mother ??? Depression Mother Current Outpatient Prescriptions Medication Sig Dispense Refill ??? amitriptyline 75 mg tablet Take 0.5 tablets (37.5 mg total) by mouth at bedtime. 30 tablet 11 ??? baclofen 10 mg tablet Take 1 tablet (10 mg total) by mouth at bedtime. 30 tablet 11 ??? capsaicin 0.025 % topical cream Apply to back for pain control three times daily as needed. Avoid use on damaged, broken, or irritated skin, avoid occlusive ??? cholecalciferol (VITAMIN D3) 2,000 unit capsule Take 2,000 Units by mouth daily. ??? diclofenac 1 % topical gel Apply 4 grams topically 3 times daily. Day supply: 30 400 g 5 ??? DULoxetine 60 mg XR capsule Take 1 capsule (60 mg total) by mouth 2 times daily. 60 capsule 11 ??? lidocaine 5 % ointment Apply topically 2 times daily as needed. 35.44 g 11 ??? naloxone 1 mg/mL injection syringe (2 mL) Gently screw vial of naloxone into barrel of syringe.Insert white cone into nostril. Give a short, vigorous push on end of vial to spray 1/2 of vial, 1ml, into each nostril. Repeat with second vial in 3 minutes, if no response. 4 mL 0 ??? omeprazole 20 mg enteric coated capsule Take 20 mg by mouth daily. ??? oxyCODONE (OXYCONTIN) 15 mg XR tablet Take 1 tablet (15 mg total) by mouth 2 times daily. Earliest Fill Date: 01/10/18 60 tablet 0 ??? oxyCODONE-acetaminophen 10-325 mg per tablet Take 1 tablet by mouth every 4 hours as needed forPain. Max 3/day. Earliest Fill Date: 01/10/18 90 tablet 0 ??? sennosides (SENEXON) 8.6 mg tablet Take 1 tablet by mouth 2 times daily as needed. No current facility-administered medications for this visit. No Known Allergies Social History Social History ??? Marital status: Spouse name: N/A ??? Number of children: N/A ??? Years of education: N/A Occupational History ??? Not on file. Social History Main Topics ??? Smoking status: Never Smoker ??? Smokeless tobacco: Never Used ??? Alcohol use No Comment: Not since 1996 ??? 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 Sexual activity: Yes Partners: Female control/ protection: Other Other Topics Concern ??? Not on file Social History Narrative Mr. 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 Review of Systems: All systems were reviewed and are negative except for: Ears: Ringing in the ears, Trouble hearing, Dizziness Nose/throat/mouth: Sinus problems Cardiovascular: Pain in legs Respiratory: Shortness of breath GI: Trouble eating Musculoskeletal: Muscle pain, Muscle weakness, Arm Pain, Arm Weakness, Leg Pain Integumentary: Hair loss Neurological: Dizziness, Frequent Headaches, Weakness of an arm/leg Mental Health: Feeling down or depressed Objective: BP 127/90 Pulse 79 Temp 36.7 ??C (98.1 ??F) (Tympanic) Ht 1.803 m (5' 10.98 ) Wt 91.6 kg (201 lb 15.1 oz) SpO2 95% BMI 28.18 kg/m?? Constitutional: Normal appearance, grooming and nutrition. HEENT: Normocephalic, Normal eyes, ear on inspection. Neck: Normal inspection. Supple. Respiration: Normal respiratory effort Cardiovascular: Normal rate and rhythm Chest: Symmetrical Motor: 5/5 muscle strength throughout. Cervical Spine: Tenderness to palpation of right neck. Negative Jasson's. Lumbar Spine: SLR negative bilaterally. Lower Extremities: No pain with external or internal rotation of bilateral hips. Skin: Normal, no rashes. Neurological: Cranial nerves intact. Reflexes: 2+ biceps bilaterally (patient endorse diffuse, nondermatomal burning pain in the left arm with left biceps reflex check.); unable to elicit patellars. Psychological: Alert, awake and oriented X 3. Assessment: Encounter Diagnoses ICD-10-CM ICD-9-CM 1. Lumbar radicular pain M54.16 724.4 2. Other chronic pain G89.29 338.29 3. Osteoarthritis of spine with radiculopathy, lumbar region M47.26 721.3 Edilberto Hawley is a 62 y.o. gentleman who presents for follow-up of his left lower extremity painstarted after a work-related injury in April 2017. Patient's lumbar MRI is consistent with a right posterior paracentral disc extrusion at L3-4 with severely narrowed neuroforaminal stenosis bilaterally. Given his lumbar left-sided radicular pain and neuroforaminal stenosis, we will plan for left L3and L4 transforaminal epidural steroid injections. Patient also reports neck pain. His MRI is consistent with moderate central canal stenosis at C6-7 and neuroforaminal stenosis C3-4 and C5-6. We will discuss NOREEN in future. Plan: The following treatment recommendations were discussed in detail with Mr. Edilberto Hawley. Imaging: I have reviewed Mr. Edilberto Hawley's imaging and results were discussed with him today. Analgesics: Patient is managing his pain currently with use of oxycontin and oxyIR. He is instructed to continue as directed by prescribing MD. Patient is advised to avoid escalating doses. Patient is advised tocontact prescribing MD for future prescriptions. If opioid decrease is desired, then patient???s opioids should be tapered slowly downward and eventually decreased to minimal dosage. Opioids can be tapered 10- 15% every 2 days without opioids withdrawal. Patient is taking Acetaminophen. Patient informed that the maximum amount of acetaminophen taken agustin regular basis should only be 3000 mg per day. Adjuvants: For his chronic pain with associated depression, the patient is advised to continue amytryptiline and Cymbalta. For his continued chronic pain with associated musculoskeletal component, the patient is advised tocontinue baclofen. Patient is also using lidocaine ointment. Interventions: In presence of lumbosacral radiating pain, the option of lumbar epidural steroid injection through transforaminal approach at left L3 and LF was chosen. The risks and benefits were discussed in detail with the patient. Patient wants to proceed with this injection during the next visit. - No Ibuprofen or 2 days. No Aleve for 7 days. Please bring a special education bus driver. Multidisciplinary Pain Management: In the presence of complex, chronic, and multi-factorial pain, the importance of a multidisciplinary approach to pain management in the patient???s management regimen was emphasized and discussed in great detail. - The patient was advised to see a physical therapist for gentle stretching exercises and conditioning exercises for management of pain. - The patient was also advised to continue physical therapy and stretching exercises at home. Referrals Provided: ?? None Prescriptions Written This Visit: No prescription provided by the pain clinic. Work Status: Patient should resume same work status with unchanged restrictions after today's visitas prescibed by patient's prior provider on prior visits with them. Follow-up: For Left L3 and L4 TFESI. Staff Physician Comments: Staff Involved: Staff and Resident/Fellow Lissa Rollins MD TEACHING: I performed a history and physical examination of the patient and discussed his management with theresident/fellow. I reviewed the resident???s/fellow's note and agree with the documented findings and plan of care Chris Sanchez MD [facility] Home Worker Department of Anesthesia, Division of Chronic Pain Management Pager [phone] SANDER SANDER documented in this encounter Plan of Treatment Not on file documented as of this encounter Results * PAIN SELECTIVE NERVE ROOT BLOCK, OR TRANSFORAMINAL EPIDURAL STEROID INJ, LUMBAR/SACRAL W FLUORO (02/15/2018 9:03 AM CDT) Narrative Chris Sanchez MD - 02/15/2018 9:00 AM CDT Chris Sanchez MD ? 02/18/2018 ??7:42 AM PAIN SELECTIVE NERVE ROOT BLOCK, LUMBAR/SACRAL W FLUORO us Lissa Rollins PAIN CLINIC IMAGING Edited Resul t - Final documented in this encounter Visit Diagnoses Diagnosis Lumbar radicular pain- Primary Thoracic or lumbosacral neuritis or radiculitis, unspecified Other chronic pain Osteoarthritis of spine with radiculopathy, lumbar region Closed fracture of transverse process of lumbar vertebra with routine healing Osteoarthritis of spine with radiculopathy, lumbosacral region- Primary Lumbar radicular pain Thoracic or lumbosacral neuritis or radiculitis, unspecified Other chronic pain documented in this encounter Additional Health Concerns Assessment Noted Time PHQ-9 Depression Total Score: 14 018 12:18 PM BOWL SANDER PHQ-2 Depression Total Score: 5 01/07/20 18 12:18 PM BOWL SANDER documented as of this encounter Care Teams Printing Sign Machine Operator Relationship Specialty Start Date End Date Coco Leos PA-C [address] [place] [phone] PCP - General Physician Tai Chi Instructor 02/17/17 12/15/22 documented as of this encounter
--- OUTSIDE RECORDS SUMMARY | 2024-11-23 00:13 | XMS_ITS | Encounter Summary ---
Author Organization [facility] Address [address] [place] [address] Phone Care Team Providers Care Dictating Machine Mechanic Name Role Phone Coco Leos PA-C Primary Care Provider [phone] Reason for Visit * Reason Comments Follow-up Encounter Details Date Type Department Care Team (Late st Contact Info) Description 01/05/2018 Telephone [facility] - Anesthesia - Chronic Pain [address] [place] [phone] Chris Sanchez MD [address] [place] [address] Social History Tobacco Use Types Packs/Day Years [...] encounter Miscellaneous Notes * Telephone Encounter - Chris Dougherty MD - 01/05/2018 9:28 AM CST I agree that further evaluation would be required before we pursue a cervical MRI. We did not discuss his neck pain or headaches during our visit and thus I cannot approve a cervical MRI at this time. We did briefly discuss shoulder pain, although he informed me this was thought secondary to a known rotator cuff injury. He should undergo the lumbar MRI as planned. Chris Martinez OGRAPHY NURSE * Telephone Encounter - Ruth Escamilla RN - 01/05/2018 8:38 AM CST 01/05/18-the patient left a message on the nurses line to ask if he can have a MRI of his neck at the same time as his lumbar MRI which is currently scheduled for 01/11/18. States that he continues to have bad, severe headaches and notes that it hurts all of the time on the left side of my neck . States that he told the doctors about this. Medical record reviewed. It appears that we are seeing him under Worker's Comp for new onset left lower extremity pain that started after a work-related injury. As he was not referred to us for neck pain and headaches, he will likely need evaluation for this complaint elsewhere. I attempted to call this patient and had to leave him a voice message to return my call. We will need to ascertain that the neck pain and headaches are not associated with this work injury that we are seeing him for. We will need to instruct him to seek assessment for these symptoms with his PCP. This encounter routed to Dr. Dougherty for his verification of the above suggested plan of action. OGRAPHY NURSE documented in this encounter Plan of Treatment [...] of use: As long as needed Video/Handout: [email or web address] Pain Management - Exercise Pain Management No Coco Leos PA-C Note: Exercise: General Aerobic ?? Duration: 3 to 5 days per week for 20 minutes per day ?? Intensity: Moderate Strengthening: neither Back nor General (for widespread pain) nor Shoulder ?? Intensity: Moderate ?? Duration: 2 to 4 days per week ?? Instructions: See attached documentation for details Video/Handout: [email or web address] documented as of this encounter Visit Diagnoses Not on filedocumented in this encounter Additional Health Concerns Assessment Noted Time PHQ-9 Depression Total Score: 12 018 12:31 PM ANGIOGRAPHY NURSE PHQ-2 Depression Total Score: 5 11/16/19 18 12:31 PM ANGIOGRAPHY NURSE documented as of this encounter Care Teams Dictating Machine Mechanic Relationship Specialty Start Date End Date Coco Leos PA-C [address] [place] [address] PCP - General Physician Product Safety And Standards Engineer 02/17/17 12/15/22 documented as of this encounter
--- OUTSIDE RECORDS SUMMARY | 2024-11-23 00:13 | XMS_ITS | Encounter Summary ---
Author Organization [facility] Address [address] [place] [address] Phone Care Team Providers Care Commercial Banker Name Role Phone Coco Leos PA-C Primary Care Provider [phone] Provider, No-Primary Care Primary Care Provider Unavailable Encounter Details Date Type Department Care Team (Late st Contact Info) Description 03/11/2018 Pharmacy Visit RX [facility] [address] [place] [phone] Social History Tobacco Use Types Packs/Day [...] Depression Total Score: 14 018 12:18 PM RESTAURANT HOURLY MANAGER PHQ-2 Depression Total Score: 5 01/07/20 18 12:18 PM RESTAURANT HOURLY MANAGER documented as of this encounter Care Teams Commercial Banker Relationship Specialty Start Date End Date Coco Leos PA-C [address] [place], [place] [phone] PCP - General Physician Ophthalmic Dispenser 02/17/17 12/15/22 Provider, No-Primary Care [place] PCP - General 12/16/22 documented as of this encounter
--- OUTSIDE RECORDS SUMMARY | 2024-11-23 00:13 | XMS_ITS | Encounter Summary ---
Author Organization [facility] Address [address] [place] [address] Phone Care Team Providers Care Scrap Separator Name Role Phone Coco Leos PA-C Primary Care Provider [phone] Provider, No-Primary Care Primary Care Provider Unavailable Encounter Details Date Type Department Care Team (Late st Contact Info) Description 02/14/2018 Pharmacy Visit RX [facility] [address] [place] [phone] Social History Tobacco Use Types Packs/Day [...] Depression Total Score: 14 018 12:18 PM FINISHING ROOM SUPERVISOR PHQ-2 Depression Total Score: 5 01/07/20 18 12:18 PM FINISHING ROOM SUPERVISOR documented as of this encounter Care Teams Scrap Separator Relationship Specialty Start Date End Date Coco Leos PA-C [address] [place], [place] [id number] PCP - General Physician Account Engineer 02/17/17 12/15/22 Provider, No-Primary Care [place] PCP - General 12/16/22 documented as of this encounter
--- OUTSIDE RECORDS SUMMARY | 2024-11-23 00:13 | XMS_ITS | Encounter Summary ---
Author Organization [facility] Address [address] [place] [address] Phone Care Team Providers Care Elocution Teacher Name Role Phone Coco Leos PA-C Primary Care Provider [phone] Provider, No-Primary Care Primary Care Provider Unavailable Encounter Details Date Type Department Care Team (Late st Contact Info) Description 01/10/2018 Pharmacy Visit RX [facility] [address] [place] [phone] Social History Tobacco Use Types Packs/Day [...] Depression Total Score: 14 018 12:18 PM WHOLESALE MANAGER PHQ-2 Depression Total Score: 5 01/07/20 18 12:18 PM WHOLESALE MANAGER documented as of this encounter Care Teams Elocution Teacher Relationship Specialty Start Date End Date Coco Leos PA-C [address] [place], [place] [phone] PCP - General Physician Tar Leveler 02/17/17 12/15/22 Provider, No-Primary Care [place] PCP - General 12/16/22 documented as of this encounter
--- OUTSIDE RECORDS SUMMARY | 2024-11-23 00:13 | XMS_ITS | Encounter Summary ---
Author Organization [facility] Address [address] [place] [address] Phone Care Team Providers Care Weed Burner Name Role Phone Coco Leos PA-C Primary Care Provider [phone] Reason for Referral * Radiology Services (Routine) - Closed Specialty Diagnoses / Procedures Referred By Contac t Referred To Contact Radiology Diagnoses Arthritis Neck pain Cervical radiculopathy at C7 Procedures MRI SPINE CERVICAL WO CONTRAST ([id number]) Coco Leos PA-C [address] [place] [address] Phone: tel: fax: [address] [phone] Phone: tel: fax: Referral ID Status Reason Start Date Expiration Date Visits Re quested Visits Authorized [id number] Closed 01/07/2018 1 1 ER Reason for Visit * Reason Comments Patient Reported Reason For Visit irl vandana morales * Radiology Services (Routine) - Closed Specialty Diagnoses / Procedures Referred By Contac t Referred To Contact Radiology Diagnoses Arthritis Neck pain Cervical radiculopathy at C7 Procedures MRI SPINE CERVICAL WO CONTRAST ([id number]) Coco Leos PA-C [address] [place] [address] Phone: tel: fax: [facility] Radiology - MRI [address] [place] [address], [place] [address] Phone: tel: fax: Referral ID Status Reason Start Date Expiration Date Visits Re quested Visits Authorized [id number] Closed 01/07/2018 1 1 Encounter Details Date Type Department Care Team (Susie st Contact Info) Description 01/11/2018 5:01 PM SNAKER - 01/11/2018 11:59 PM SNAKER Hospital Encounter [facility] - MRI [address] [place] [phone] CarmelPrinceJelani A [address] [place] [address] Social History Tobacco Use Types Packs/Day Years [...] on file documented as of this encounter Medications at Time of Discharge amitriptyline 75 mg tabletIndication s:Other chronic pain Take 0.5 tablets (37.5 mg total) by mouth at bedtime. 30 tablet 06/10/2018 2:04 PM CDT 11/16/2017 baclofen 10 mg tabletIndication s:muscle spasticity of spinal origin Take 1 tablet (10 mg total) by mouth at bedtime. 30 tablet 06/10/2018 2:04 PM CDT 08/09/2017 capsaicin 0.025 % topical cream Apply to back for pain control three times daily as needed. Avoid use on damaged, broken, or irritated skin, avoid occlusive 10/29/2017 cholecalciferol (VITAMIN D3) 2,000 unit capsule Take 2,000 Units by mouth daily. diclofenac 1 % topical gelIndications:A rthritis Apply 4 grams topically 3 times daily. Day supply: 30 400 g 5 01/11/2018 4:27 PM SNAKER 01/07/2018 DULoxetine 60 mg XR capsuleIndicatio ns:Other chronic pain,Moderate episode of recurrent major depressive disorder (HCC) Take 1 capsule (60 mg total) by mouth 2 times daily. 60 capsule 11 01/11/2018 4:27 PM SNAKER 01/07/2018 lidocaine 5 % ointmentIndicati ons:Low back pain with radiation, right Apply topically 2 times daily as needed. 35.44 g 11 01/12/2017 5:22 PM SNAKER 01/12/2017 omeprazole 20 mg enteric coated capsule Take 20 mg by mouth daily. sennosides (SENEXON) 8.6 mg tablet Take 1 tablet by mouth 2 times daily as needed. naloxone 1 mg/mL injection syringe (2 mL)Indications:O ther chronic pain Gently screw vial of naloxone into barrel of syringe. Insert white cone into nostril. Give a short, vigorous push on end of vial to spray 1/2 of vial, 1ml, into each nostril. Repeat with second vial in 3 minutes, if no response. 4 mL 02/11/2017 4:08 PM CDT 02/10/2017 8 oxyCODONE (OXYCONTIN) 15 mg XR tabletIndication s:chronic pain Take 1 tablet (15 mg total) by mouth 2 times daily. Earliest Fill Date: 01/10/18 60 tablet 01/11/2018 4:27 PM SNAKER 01/10/2018 8 oxyCODONE-acetam inophen 10-325 mg per tabletIndication s:Other chronic pain Take 1 tablet by mouth every 4 hours as needed for Pain. Max 3/day. Earliest Fill Date: 01/10/18 90 tablet 01/11/2018 4:27 PM SNAKER 01/10/2018 8 documented as of this encounter Plan of [...] of use: As long as needed Video/Handout: [email or web address] Pain Management - Exercise Pain Management No Coco Leos PA-C Note: Exercise: General Aerobic ?? Duration: 3 to 5 days per week for 20 minutes per day ?? Intensity: Moderate Strengthening: neither Back nor General (for widespread pain) nor Shoulder ?? Intensity: Moderate ?? Duration: 2 to 4 days per week ?? Instructions: See attached documentation for details Video/Handout: [email or web address] documented as of this encounter Procedures Procedure Name Priority Date/Time Associated Diagnosis Comments MRI SPINE CERVICAL WO CONTRAST Routine 01/11/2018 6:32 PM SNAKER Arthritis Neck pain Cervical radiculopathy at C7 documented in this encounter Results * MRI SPINE CERVICAL WO CONTRAST ([id number]) (01/11/2018 6:32 PM SNAKER) Anatomical Region Laterality Modality Spine Magnetic Resonan ce Impressions 01/12/2018 11:07 AM SNAKER Impression: 1. The most significant central spinal stenosis is at C6-7 with moderate stenosis. 2. The neural foramen show severe bilateral narrowing at C4-5 with moderate narrowing at C34 and C5-6. Narrative 01/12/2018 11:07 AM SNAKER Procedure: MRI SPINE CERVICAL WO CONTRAST ([id number]) Indication: C7 radicular symptoms in left upper extremity. Technique: Multisequence, multiplanar MRI of the cervical spine without IV contrast. Exam was performed using a degenerative joint disease protocol. Comparison: None. Findings: There is normal alignment without evidence of acute fracture or dislocation. Vertebral body heights are well-maintained. Visualized cord is within normal limits. Normal marrow signal. Prevertebral soft tissues are unremarkable. Grossly normal thyroid. Individual disc levels are as follows: C2-C3: No significant disc disease or stenosis. C3-C4: No significant disc disease or stenosis. There is moderate neural foraminal narrowing bilaterally. C4-C5: Posterior disc osteophytic complex causes mild central spinal stenosis. Laterally the neural foramen show severe narrowing bilaterally.. C5-C6: Posterior circumferential disc bulge causes minimal [...] C7-T1: No significant disc disease or stenosis. Procedure Note Bridgett Ayers MD - 01/12/2018 Procedure: MRI SPINE CERVICAL WO CONTRAST ([id number]) Indication: C7 radicular symptoms in left upper extremity. Technique: Multisequence, multiplanar MRI of the cervical spine without IV contrast. Exam was performed using a degenerative joint disease protocol. Comparison: None. Findings: There is normal alignment without evidence of acute fracture or dislocation. Vertebral body heights are well-maintained. Visualized cord is within normal limits. Normal marrow signal. Prevertebral soft tissues are unremarkable. Grossly normal thyroid. Individual disc levels are as follows: C2-C3: No significant disc disease or stenosis. C3-C4: No significant disc disease or stenosis. There is moderate neural foraminal narrowing bilaterally. C4-C5: Posterior disc osteophytic complex causes mild central spinal stenosis. Laterally the neural foramen show severe narrowing bilaterally.. C5-C6: Posterior circumferential disc bulge causes minimal [...] C7-T1: No significant disc disease or stenosis. IMPRESSION Impression: 1. The most significant central spinal stenosis is at C6-7 with moderate stenosis. 2. The neural foramen show severe bilateral narrowing at C4-5 with moderate narrowing at C34 and C5-6. us Coco Leos PA-C RAD MR ORDERABLES Final Resu lt documented in this encounter Visit Diagnoses Diagnosis Arthritis Arthropathy, unspecified, site unspecified Neck pain Cervicalgia Cervical radiculopathy at C7 Brachial neuritis or radiculitis nos documented in this encounter Additional Health Concerns Assessment Noted Time PHQ-9 Depression Total Score: 14 018 12:18 PM SNAKER PHQ-2 Depression Total Score: 5 01/07/20 18 12:18 PM SNAKER documented as of this encounter Care Teams Weed Burner Relationship Specialty Start Date End Date Coco Leos PA-C [address] [place] [address] PCP - General Physician Animal Control Supervisor 02/17/17 12/15/22 documented as of this encounter
--- OUTSIDE RECORDS SUMMARY | 2024-11-23 00:13 | XMS_ITS | Encounter Summary ---
Author Organization [facility] Address [address] [place] [address] Phone Care Team Providers Care Window Glazier Helper Name Role Phone Coco Leos PA-C Primary Care Provider [phone] Reason for Visit * Reason Comments Other Encounter Details Date Type Department Care Team (Late st Contact Info) Description 01/19/2018 [facility] - Anesthesia - Chronic Pain [address] [place] [phone] Chris Sanchez MD [address] [place] [address] Social History Tobacco Use Types Packs/Day Years [...] encounter Miscellaneous Notes * Telephone Encounter - Hand, Stephanie Szymanski RN - 01/19/2018 10:15 AM CST Mr Hawley called to request that his PT Referral be faxed to [phone] ( [facility]), as helost the original copy. This was done for him. P BLOWER documented in this encounter Plan of Treatment [...] of use: As long as needed Video/Handout: [email or web address]-tens Pain Management - Exercise Pain Management No Coco Leos PA-C Note: Exercise: General Aerobic ?? Duration: 3 to 5 days per week for 20 minutes per day ?? Intensity: Moderate Strengthening: neither Back nor General (for widespread pain) nor Shoulder ?? Intensity: Moderate ?? Duration: 2 to 4 days per week ?? Instructions: See attached documentation for details Video/Handout: [email or web address] documented as of this encounter Visit Diagnoses Not on filedocumented in this encounter Additional Health Concerns Assessment Noted Time PHQ-9 Depression Total Score: 14 018 12:18 PM STUMP BLOWER PHQ-2 Depression Total Score: 5 01/07/20 18 12:18 PM STUMP BLOWER documented as of this encounter Care Teams Window Glazier Helper Relationship Specialty Start Date End Date Coco Leos PA-C [address] [place] [address] PCP - General Physician Catering Attendant 02/17/17 12/15/22 documented as of this encounter
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
--- OUTSIDE RECORDS SUMMARY | 2024-11-23 00:13 | XMS_ITS | Encounter Summary ---
Author Organization [facility] Care Address [address] [place] [address] Phone Care Team Providers Care Trailer Tank Truck Driver Name Role Phone Coco Leso PA-C Primary Care Provider [phone] Provider, No-Primary Care Primary Care Provider Unavailable Encounter Details Date Type Department Care Team (Late st Contact Info) Description 04/05/2018 Pharmacy Visit RX [facility] [address] [place] [phone] Social History Tobacco Use Types Packs/Day [...] Depression Total Score: 14 018 12:18 PM SILO TENDER PHQ-2 Depression Total Score: 5 01/07/20 18 12:18 PM SILO TENDER documented as of this encounter Care Teams Trailer Tank Truck Driver Relationship Specialty Start Date End Date Coco Leos PA-C [address] [place], [place] [phone] PCP - General Physician Blending Machine Operator 02/17/17 12/15/22 Provider, No-Primary Care [place] PCP - General 12/16/22 documented as of this encounter
--- OUTSIDE RECORDS SUMMARY | 2024-11-23 00:13 | XMS_ITS | Encounter Summary ---
Author Organization [facility] Care Address [address] [place] [address] Phone Care Team Providers Care Interventionist Name Role Phone Coco Leos PA-C Primary Care Provider [phone] Provider, No-Primary Care Primary Care Provider Unavailable Encounter Details Date Type Department Care Team (Late st Contact Info) Description 02/10/[address] [facility] [address] [place] [phone] Social History Tobacco Use Types Packs/Day [...] Depression Total Score: 14 018 12:18 PM TENNIS PLAYER PHQ-2 Depression Total Score: 5 01/07/20 18 12:18 PM TENNIS PLAYER documented as of this encounter Care Teams Interventionist Relationship Specialty Start Date End Date Coco Leos PA-C [address] [place], [place] [phone] PCP - General Physician Laminating Machine Feeder 02/17/17 12/15/22 Provider, No-Primary Care [place] PCP - General 12/16/22 documented as of this encounter
--- OUTSIDE RECORDS SUMMARY | 2024-11-23 00:13 | XMS_ITS | Encounter Summary ---
Author Organization [facility] Care Address [address] [place] [address] Phone Care Team Providers Care Mine Geologist Name Role Phone Coco Leos PA-C Primary Care Provider [phone] Reason for Referral * Radiology Services (Routine) - Closed Specialty Diagnoses / Procedures Referred By Contac t Referred To Contact Radiology Diagnoses Lumbar radicular pain Trauma Procedures MRI SPINE LUMBAR WO CONTRAST ([id number]) Chris Dougherty [address] [place] [address] Phone: tel: [facility] Radiology - MRI [address] [place] [phone] Phone: tel: fax: Referral ID Status Reason Start Date Expiration Date Visits Re quested Visits Authorized [id number] Closed 12/28/2017 1 1 D STACKER Reason for Visit * Reason Comments Patient Reported Reason For Visit pt margy l Patient Reported Reason For Visit pt margy l * Radiology Services (Routine) - Closed Specialty Diagnoses / Procedures Referred By Contac t Referred To Contact Radiology Diagnoses Lumbar radicular pain Trauma Procedures MRI SPINE LUMBAR WO CONTRAST ([id number]) Chris Dougherty [address] [place] [address] Phone: tel: [facility] Radiology - MRI [address] [place] [phone] Phone: tel: fax: Referral ID Status Reason Start Date Expiration Date Visits Re quested Visits Authorized [id number] Closed 12/28/2017 1 1 Encounter Details Date Type Department Care Team (Late st Contact Info) Description 01/11/2018 4:59 PM BREAD STACKER - 01/11/2018 5:00 PM [facility] Hospital Encounter [facility] - Radiology - MRI [address] [place] [address] Jelani Burt [address] [place] [address] Discharge Disposition: Home or Self Care Social History Tobacco Use Types Packs/Day Years [...] 30 400 g 5 01/11/2018 4:27 PM BREAD STACKER 01/07/2018 DULoxetine 60 mg XR capsuleIndicatio ns:Other chronic pain,Moderate episode of recurrent major depressive disorder (HCC) Take 1 capsule (60 mg total) by mouth 2 times daily. 60 capsule 01/11/2018 4:27 PM BREAD STACKER 01/07/2018 lidocaine 5 % ointmentIndicati ons:Low back pain with radiation, right Apply topically 2 times daily as needed. 35.44 g 11 01/12/2017 5:22 PM BREAD STACKER 01/12/2017 omeprazole 20 mg enteric coated capsule [...] Date: 01/10/18 60 tablet 01/11/2018 4:27 PM BREAD STACKER 01/10/2018 8 oxyCODONE-acetam inophen 10-325 mg per tabletIndication s:Other chronic pain Take 1 tablet by mouth every 4 hours as needed for Pain. Max 3/day. Earliest Fill Date: 01/10/18 90 tablet 01/11/2018 4:27 PM BREAD STACKER 01/10/2018 8 documented as of this encounter Plan of Treatment Not on file documented as of this encounter Procedures Procedure Name Priority Date/Time Associated Diagnosis Comments MRI SPINE LUMBAR WO CONTRAST Routine 01/11/2018 6:31 PM BREAD STACKER Lumbar radicular pain Trauma documented in this encounter Results * MRI SPINE LUMBAR WO CONTRAST ([id number]) (01/11/2018 6:31 PM BREAD STACKER) Anatomical Region Laterality Modality Spine Magnetic Resonan ce Impressions 01/12/2018 9:24 AM BREAD STACKER Impression: 1. New from the prior exam is a right posterior paracentral disc extrusion at L3-4 which extends inferiorly behind the L4 vertebral body and moderately to severely narrows the right lateral recess. 2. Severe neural foraminal narrowing on the left at L3-4 and on the right at L5-S1, similar to prior. Narrative 01/12/2018 9:24 AM BREAD STACKER Procedure: MRI SPINE LUMBAR WO CONTRAST ([id number]) Indication: ] Back pain, left lower extremity pain and L4 distribution. Significant injury since last MRI. Technique: Multisequence, multiplanar MRI of the lumbar spine without IV contrast. Comparison: 01/22/2017 Findings: Numbering assumes 5 lumbar type vertebrae. There is normal alignment without evidence of acute fracture or dislocation. Vertebral body heights are well-maintained. The visualized cord is within normal limits. The conus medullaris terminates at L1. Normal marrow signal throughout. Paravertebral structures are unremarkable. A level by level analysis is as follows: T12-L1: There is no significant disc disease or stenosis. L1-L2: There is no significant disc disease or stenosis. L2-L3: ??Mild circumferential disc bulging is present. No significant central spinal or foraminal narrowing. L3-L4: New from the prior exam is a right paracentral disc extrusion that extends inferiorly behind the L4 vertebral body. This causes moderate to [...] this right-sided neural foraminal narrowing appears similar. Procedure Note Bridgett Ayers MD - 01/12/2018 Procedure: MRI SPINE LUMBAR WO CONTRAST ([id number]) Indication: ] Back pain, left lower extremity pain and L4 distribution. Significant injury since last MRI. Technique: Multisequence, multiplanar MRI of the lumbar spine without IV contrast. Comparison: 01/22/2017 Findings: Numbering assumes 5 lumbar type vertebrae. There is normal alignment without evidence of acute fracture or dislocation. Vertebral body heights are well-maintained. The visualized cord is within normal limits. The conus medullaris terminates at L1. Normal marrow signal throughout. Paravertebral structures are unremarkable. A level by level analysis is as follows: T12-L1: There is no significant disc disease or stenosis. L1-L2: There is no significant disc disease or stenosis. L2-L3: Mild circumferential disc bulging is present. No significant central spinal or foraminal narrowing. L3-L4: New from the prior exam is a right paracentral disc extrusion that extends inferiorly behind the L4 vertebral body. This causes moderate to [...] this right-sided neural foraminal narrowing appears similar. IMPRESSION Impression: 1. New from the prior exam is a right posterior paracentral disc extrusion at L3-4 which extends inferiorly behind the L4 vertebral body and moderately to severely narrows the right lateral recess. 2. Severe neural foraminal narrowing on the left at L3-4 and on the right at L5-S1, similar to prior. Chris Dougherty [facility] MR ORDERABLES Final Result documented in this encounter Visit Diagnoses Diagnosis Lumbar radicular pain Thoracic or lumbosacral neuritis or radiculitis, unspecified Trauma Injury, other and unspecified, unspecified site documented in this encounter Additional Health Concerns Assessment Noted Time PHQ-9 Depression Total Score: 14 018 12:18 PM BREAD STACKER PHQ-2 Depression Total Score: 5 01/07/20 18 12:18 PM BREAD STACKER documented as of this encounter Care Teams Mine Geologist Relationship Specialty Start Date End Date Coco Leos PA-C [address] [place] [phone] PCP - General Physician Field Technical Assistant 02/17/17 12/15/22 documented as of this encounter
--- OUTSIDE RECORDS SUMMARY | 2024-11-23 00:13 | XMS_ITS | Encounter Summary ---
Author Organization [facility] Care Address [address] [place] [address] Phone Care Team Providers Care Chief Talent Officer Name Role Phone Coco Leos PA-C Primary Care Provider [phone] Provider, No-Primary Care Primary Care Provider Unavailable Encounter Details Date Type Department Care Team (Late st Contact Info) Description 02/11/2018 Pharmacy Visit RX [facility] [address] [place] [phone] Social History Tobacco Use Types Packs/Day [...] Depression Total Score: 14 018 12:18 PM EPIC CADENCE ANALYST PHQ-2 Depression Total Score: 5 01/07/20 18 12:18 PM EPIC CADENCE ANALYST documented as of this encounter Care Teams Chief Talent Officer Relationship Specialty Start Date End Date Coco Leos PA-C [address] [place], [place] [phone] PCP - General Physician Car Chaser 02/17/17 12/15/22 Provider, No-Primary Care [place] PCP - General 12/16/22 documented as of this encounter
--- OUTSIDE RECORDS SUMMARY | 2024-11-23 00:13 | XMS_ITS | Encounter Summary ---
Author Organization [facility] Care Address [address] [place] [address] Phone Care Team Providers Care Greens Cutter Name Role Phone Coco Leos PA-C Primary Care Provider [phone] Reason for Visit * Reason Comments Prior Authorization Encounter Details Date Type Department Care Team (Late st Contact Info) Description 02/09/2018 Telephone [place] - [facility] - Pharmacy [address] [phone] Kellie Rush, [facility] [address] [place] [address] Social History Tobacco Use Types [...] * Telephone Encounter - Dayanna Escamilla - 02/09/2018 3:23 PM CDT Edilberto has new insurance, [employer]. It requires a prior authorization on Oxycontin 15mg tablets #60. Please call , ID# [id number]. Please melissa as urgent if possible. Thank you. 02/09/18 17:18 called in review. Reference number [id number]. Talked to financial services representative Mendy. Js PATINO 02/14/18 9:32am approved 02/09/18. Reference number [id number]. Js PATINO documented in this encounter Plan of Treatment Not on file documented as of this encounter Goals Goal Patient Goal Type Associated Problems Recent Progress Patient-Stated? Author Pain Management - Transcutaneous Electrical Nerve Stimulation (TENS) Pain Management No Cooc Leos PA-C Note: Transcutaneous Electrical Nerve Stimulation (TENS) Unit: Device: Modulated Dual Channel TENS unit (AccuRelief recommended) Frequency: Modulated (P6 recommended for AccuRelief) Electrode Placement: See handout for instructions Duration: 30 minutes, 3-4 times per day while active Intensity: Strong but comfortable Expected length of use: As long as needed Video/Handout: [email or web address] Pain Management - Exercise Pain Management No Coco Leos PA-C Note: Exercise: General Aerobic ?? Duration: 3 to 5 days per week for 20 minutes per day ?? Intensity: Moderate Strengthening: neither Back nor General (for widespread pain) nor Shoulder ?? Intensity: Moderate ?? Duration: 2 to 4 days per week ?? Instructions: See attached documentation for details Video/Handout: [email or web address] documented as of this encounter Visit Diagnoses Not on filedocumented in this encounter Additional Health Concerns Assessment Noted Time PHQ-9 Depression Total Score: 14 018 12:18 PM ADVISOR TO COMMAND IN COMBAT PHQ-2 Depression Total Score: 5 01/07/20 18 12:18 PM ADVISOR TO COMMAND IN COMBAT documented as of this encounter Care Teams Greens Cutter Relationship Specialty Start Date End Date Coco Leos PA-C [address] [place] [address] PCP - General Physician Research Associate Quality Control Qc 02/17/17 12/15/22 documented as of this encounter
--- OUTSIDE RECORDS SUMMARY | 2024-11-23 00:13 | XMS_ITS | Encounter Summary ---
Author Organization [facility] Care Address [address] [place] [address] Phone Care Team Providers Care Transfer Machine Operator Name Role Phone Coco Leos PA-C Primary Care Provider [phone] Provider, No-Primary Care Primary Care Provider Unavailable Encounter Details Date Type Department Care Team (Late st Contact Info) Description 02/07/2018 Pharmacy Visit [facility] [address] [place] [phone] Social History Tobacco Use Types Packs/Day [...] Depression Total Score: 14 018 12:18 PM ANATOMICAL EMBALMER PHQ-2 Depression Total Score: 5 01/07/20 18 12:18 PM ANATOMICAL EMBALMER documented as of this encounter Care Teams Transfer Machine Operator Relationship Specialty Start Date End Date Coco Leos PA-C [address] [place], [place] [id number] PCP - General Physician Transplant Nurse 02/17/17 12/15/22 Provider, No-Primary Care [place] PCP - General 12/16/22 documented as of this encounter
--- OUTSIDE RECORDS SUMMARY | 2024-11-23 00:13 | XMS_ITS | Encounter Summary ---
Author Organization [facility] Care Address [address] [place] [address] Phone Care Team Providers Care New Accounts Clerk Name Role Phone Coco Leos PA-C Primary Care Provider [phone] Reason for Visit * Reason Comments Follow-up 2 mo f/u 45 min, c hronic pain/depression Encounter Details Date Type Department Care Team (Late st Contact Info) Description 05/02/2018 1:30 PM CDT Office Visit [facility] [address] [place] [id number] [address] [place], [place] [id number] Coco Leos PA-C [address] [place], [place] [id number] Social History Tobacco Use Types Packs/Day Years [...] 05/02/2018 1:01 PM CD T Respiratory Rate - - Oxygen Saturation - - Inhaled Oxygen Concentration - - Weight 86.3 kg (190 lb 4.1 oz) 05/02/2018 1:01 P M CDT Height - - Body Mass Index 26.54 02/15/2018 8:14 AM CDT documented in this encounter Patient Instructions * Discharge Instructions* Coco Leos PA-C - 05/02/2018 2:24 PM CDT TENS unit: Settings P6 30 minutes. Increase intensity until it is uncomfortable. Can use 4x/day (or more if needed). You can use it for aggravating activity. Follow up with me in 2 months. I referred to urology, they will call you schedule an appointment. I also referred for your colonoscopy, they should call you to schedule. * Patient Instructions* Coco Leos PA-C - 05/02/2018 1:58 PM CDT Images from the original note were not included. Transcutaneous Electrical Nerve Stimulator (TENS) How does TENS work? A TENS unit sends electrical pulses through the skin to start your body???s own pain killers. The electrical pulses can release endorphins and other substances to stop pain signals in the brain. TENScan help with short term pain relief. It works best when used during activities, such as walking, doing chores, or exercise. What is TENS used for? A TENS may be used to help with many types of chronic (long-term) pain, such as: ??? Arthritis or other joint pain ??? Back and neck pain ??? Fibromyalgia ??? Muscle pain ??? Neuropathic pain When is it best to use TENS? Research has shown that TENS is most helpful for chronic pain when used for at least 30 minutes while you are active. It is less effective when you are sitting still, lying down, or resting. Do not use TENS if you have: ??? A cardiac pacemaker or defibrillator ??? Spinal cord stimulator ??? In-dwelling pumps or monitors ??? Any implanted metallic or electronic device Talk with your health care provider if you have: ??? Cancer ??? Diabetes ??? Cognitive impairment ??? Epilepsy ??? Or are People who are allergic to nickel and/or adhesives may have skin irritation with TENS. TENS safety ??? Do not use TENS on: o Open wounds or rashes o Swollen, red, infected, or inflamed skin o Cancerous lesions, or close to them o Skin that does not have normal sensation (feeling) o Any part of your head or face o Any part of your throat o Both sides of the chest or trunk at the same time o Directly on your backbone ??? Do not use TENS while: o Bathing or showering o Sleeping o Driving o Using machinery ??? Turn the TENS unit off before you put on, move, or take off the electrode patches. ??? Do not share your patches with other people. ??? Only use the TENS unit on yourself as instructed. ??? Keep out of the reach of children. ??? Electronic equipment, such as EKG monitors and EKG alarms, may not work the right way when TENSis in use. ??? Stop using TENS and talk with your doctor or health care team if you have: o Skin irritation (redness, rash, itching) o Headache o Dizziness o Nausea (feel like you are going to throw up) How to use the TENS unit Your TENS works by delivering an electrical current through wires and patches. Your package should have: ??? TENS unit (dual channel) ??? 2 wires with a total of 4 connectors ??? 4 electrode patches ??? Power source/batteries ??? Belt clip To start treatment Make sure the skin around your painful area is clean (clean off oil/lotion) and dry. It is very important to put the patches on clean, dry skin so they make firm contact. If the patch is not secure, changes in the stimulation may happen, which could cause discomfort. 1. Make sure the TENS unit is off. 2. Put in the batteries, or charge the unit, using the instructions. 3. Take the patches out of their plastic storage bag. Save the bag for future storage. 4. Put the lead wires all the way into the connector on each patch. o Make sure there are no bare metal pins exposed. 5. Put the lead wire plugs into the socket on the top of the TENS unit. 6. Take the patches off the plastic liner. Save the liner for future storage. 7. Place the patches on your clean, dry skin. o See the pictures on the next pages to learn where to place the patches. There are 2 sets of electrodes that must be placed on the body. The first set are black in the pictures, the second set are white. You may try any electrode placement shown on these pages. o The patches should not touch each other or any metal object, such as a belt buckle or metal jewelry. 8. Turn the unit on. 9. Follow the treatment program in your After Visit Summary. 10. Start treatment and change the intensity to be strong but comfortable. o This may cause your muscles to contract. 11. After a few minutes, it may seem the stimulation is less. This is normal as your body gets usedto the TENS. You should turn up the intensity of the TENS unit to keep it feeling strong, but comfortable. Images Courtesy of [employer] www.[employer] To stop treatment 1. Make sure the TENS unit is turned off. 2. Carefully take the lead wires out of the patches. o Pulling or yanking on the wires could damage the electrodes. 3. You may either take off the patches from your skin or leave them on until your next use if you are going to use it again within the next 2 hours. o If you take off the patches, gently peel them off your skin and place them back onto the plastic liner. 4. Put the liner and patches in the plastic storage bag and store it in a cool, dry place until youuse them again. Tips for use ??? The patches can be used over and over, until the adhesive wears out. o The patches will stay sticky and last longer if you clean your skin before you start and put themback in the storage bags when you are done. o Patches can dry out if left out of the storage bags too long. ??? Patches that are dirty and/or hard to attach can be washed softly with your fingertips under slow-running, cold water and air-dried. ??? Replace the batteries or recharge the unit when the low power light flashes on the display of the unit. Attach a belt clip to the TENS unit to use it hands-free while you are active. Cleaning and storage ??? To clean the unit, turn it off and disconnect the lead wires. Gently wipe the unit with a slightly moistened, soft cloth. o Do not use chemical lumber racker o Do not use rubbing alcohol o Do not let water get into the internal area. ??? When not in use, store the unit and electrodes in a cool dry place. (Example-14??F- 131??F [-10??C-55??C] and 90% relative humidity) Check the instruction manual for specific details for your unit. ??? When not in use for a long period of time, remove the batteries to avoid liquid discharge from the batteries. Preventative maintenance ??? Do not drop unit on to hard surfaces, expose the unit to water, or expose the unit to extreme temperatures. ??? Do not bend or coil the lead wires tightly as this may cause damage to them. Tips for buying There are many TENS units you can buy at local retail stores and on the internet. Here are the whalen points to think about when buying a TENS Unit: ??? Channels o Pick a model with dual (2) channels. This will let you put on up to 4 patches. ??? Patches o Please note that wires connect to the patch with a pin or a snap. Patches come in many shapes andsizes. Pick the patches that will work for your area of pain. Make sure it will be easy to buy replacement patches when you need them. ??? Power o Most models use alkaline or rechargeable batteries. Do not forget about the cost of replacement batteries. If you are thinking of a wireless model, make sure you can reach the buttons on the unit to raise or lower the intensity. ??? Accessories o Some units come with belt clips or pouches to help you wear and carry the unit. You may also put the unit in your pocket. Pick what is right for you. ??? Cost o The costs of having a TENS unit are the TENS unit, replacement patches, and batteries as you needthem. Patches may last up to 2 weeks. Choose a TENS unit that meets your needs. TENS units and electrode patches can be found on [employer] and [employer]??? websites, as well [x+1]t local retailers and medical supply stores. You can also choose to ship to a retailer or your home. Troubleshooting Problem: Cannot feel the current. Turn the unit off before making changes. ??? Check the power source. o Are the batteries inserted properly? o Are the batteries or weak? Check the patches. o Are they all sticking on the body? o You may be able to reactivate the sticky surface. Wet your fingertip with water and gently rub the patch surface. Let it dry for 60 seconds and try putting it on again. If this does not work, use new patches. ??? Check the wires. o Are they plugged into the patch and unit properly? Problem: No pain relief ??? Do not use the unit for 3 to 5 days. Then try it again. ??? Try a different setting. ??? If you have not tried this, turn up the intensity to keep the feeling strong but comfortable. ??? Try changing the position of the patches. ??? Call your health care team for help if you cannot get relief. Problem: Skin irritation ??? Call your health care team if you have redness, a rash, or itching in the first 24 hours of use. ??? Move the patches to a different site. Do not put them on broken or irritated skin. ??? Clean your skin and let it air dry before putting on the patches. Problem: Patches will not stay on or in place ??? Try to reactivate the sticky surface. Wet your fingertip with water and gently rub the patch surface. Let it dry for 60 seconds and try putting it on again. ??? Try using a skin prep product. This product is put on the skin before placing the patch. It helps the patches stick better. You can buy it online or at a medical supply store. ??? Sweating can cause the patches to move out of place. If this happens often and a skin prep product does not help, try to hold the patches in place with medical tape. Ask your health care team forinstructions. Frequently Asked Questions What does TENS feel like? You may feel tingling, tapping, buzzing, or muscle twitching. You may also notice the TENS feels stronger or weaker at times. You may become used to the feeling and can turn up the intensity as you wear it longer. Does it hurt? No, it should not hurt. Make sure you are setting it at a strong but comfortable intensity. Can TENS harm my body? No, but it can cause some skin irritation from the patches. Can I get shocked? The TENS unit gives a therapeutic dose of electricity to your body. The higher you turn it up, the more intense the feeling will be and the more pain relief you will get. Turning it up as high as it will go may cause surprise and discomfort, but it will not harm you. Since the unit is an electrical device, you can get shocked if: ??? You reposition, or take off, the patches or if you remove the wires from the patches without first turning the unit off ??? The unit gets wet while you are using it ??? You touch bare wires on a damaged cord What if a wire comes out of the unit or patches? Turn the unit off, put the wire back in, and restart the unit. Does it matter where I place the patches? Yes! Try to surround the painful area. Place them on fleshy areas of the body, not over darnell sites. What if the patches fall off? Turn the unit off and take the wire out of the patch. You can either clean and dry the patch or replace it with a new patch. In either case, make sure your skin is clean and dry before putting on thepatch and restarting the unit. Is it OK if my muscles twitch? Yes, as long as it is not uncomfortable. Having your muscles twitch for longer than 30 minutes may cause them to get tired or sore. Is it OK to turn it up to where I just barely feel it? No. Research shows this will not provide pain relief. Why do I not wear it to bed? It is easy for the wires to get tangled or unplugged, or the patches may come off. Not wearing it to bed also lets your skin rest from wearing the patches. Do I have to use my TENS unit daily? Can I take a break? You can take a break; 3 to 5 days off may be helpful. If your pain is at a manageable level, you may want to leave the unit off and wait to use it again when you have a flare-up. Some people use their TENS only when their pain is most severe, while others use it daily. Why can???t I let someone else try my TENS unit? Just as you would not let others take a medicine that was only prescribed for you, you should not let others use your TENS unit. What is the problem with wearing it in the shower? There is a chance for electrical shock since it is an electrical device. Also, the unit is not waterproof and would be damaged. Do I have to use all four patches? No. But, if the area is large enough to get all 4 patches on, you will get more stimulation, which could give you greater pain relief. Will my insurance cover a TENS unit purchase? TENS units are not routinely covered by insurance; however, all carriers have different policies. Please consult your insurance provider to determine if coverage is available with your plan. Where do I get additional TENS unit patches? Look for instructions for TENS supplies in your TENS unit manual. Your best choice is to return to the vendor where the unit was purchased. You may search on line for replacement patches, but you will need to verify with the vendor if the patches are compatible with your specific unit. Created 11/2017 - [employer] Project Approved 11/2017 - Patient Education Program Overview of Exercise for Management of Chronic Pain Many research studies show aerobic and strengthening exercises can lessen chronic pain and improve a person???s ability to do daily activities. What is Exercise? It is any activity that requires physical effort. It is often used to improve health and fitness. Different types of exercises are: ?? Aerobic ?? Strengthening ?? Stretching. Aerobic exercise This is a moderate intensity physical activity that raises your heart rate and breathing rate. It will help you to do more activities for a longer period of time and lessen pain. It can also help: ?? Heart health ?? Mental health ?? Overall health Do more physical activity by doing things like taking the stairs, parking a bit farther away from the store, walking instead of taking a ride and doing lawn or house work. These things, as well as other fun activities like canoeing and tennis are types of aerobic exercise. Strengthening exercises Doing strengthening exercises will help you do daily tasks and activities you enjoy with less effort. They help you build more muscle strength and endurance. Stretching exercises Stretching helps your mobility and joint movement. How does exercise lessen pain? Research shows that exercise lessens pain in many ways such as: ??? Brain: Releases natural analgesics in your spinal cord and brain to turn off pain signals. These analgesics have no risks or side effects. ??? Muscle: Exercising muscles release chemicals that block pain signals from being sent to your brain. ??? Immune System: Immune cells release natural chemicals that block pain signals and heal injured tissue. What are other benefits of exercise for people with chronic pain? Research also shows that exercise can improve: ?? Fatigue (feeling very tired) ?? Energy ?? Strength ?? Mental health ?? Physical function ?? Depression ?? Anxiety ?? Sleep ?? Body weight ?? Blood pressure ?? Blood glucose levels ?? Quality of life More importantly, exercise can help you do activities you enjoy like spending time with family and friends, working in the garden or yard, recreation or sports. When and how much should I exercise? You have been prescribed aerobic, strengthening and stretching exercises. These exercises are designed to give you strength and energy so you can do more activities you enjoy. Choose a time of day that best fits your schedule. It is helpful to record your exercises to make sure you are meeting your weekly goals and for tracking your progress. You can do this on the weekly exercise tracker on the last page of this handout. There are also electronic devices you can use to track activity. These include Fitbit??, [employer] pedometers and the [employer]??. If you have a smartphone, there are downloadable apps such as [employer], [employer] and the [employer]. All of these options will track such things as number of stepstaken per day, distance covered, heart rate and calories consumed and burned. This information can help with motivation and also provide important feedback about your exercise sessions. It is most important to be more active than you are right now. For aerobic exercise you can start with as little as 5 to 10 minutes each day. Increase that time with a goal of reaching 30 minutes or more each day. It is best to do moderate intensity exercise for the best results. Moderate intensityexercise is rated between 3 and 6 on a 0 to 10 scale (see chart below). You should be able to talk while exercising, but not sing. Sedentary Light Moderate Vigorous 0 1 2 3 4 5 6 7 8 9 10 No effort, not moving Little effort, can talk and sing Moderate effort with a noticeable rise in heart rate, can talk but not sing Maximum effort with substantial rise in heart rate, not able to talk For strengthening exercises, start with as little as 1 set of repetitions with the goal of reaching3 sets. Hold stretching exercises for 30 seconds and repeat them 3 times. You will get instructionsspecific to your chronic pain condition. Tips for starting a successful exercise program: People often feel anxious about starting and continuing an exercise program. You may be afraid it will cause more pain and be uncomfortable. You might be concerned you do not have enough time. You might worry that you do not know how to exercise the right way or that you cannot meet your goals. Youalso might think it will not help your chronic pain. We understand this. This is normal, and in fact most people who exercise regularly feel or think this way at one time or another. Think about these concerns and come up with ways you can exercise regularly. Before starting try: 1. Making a list of activities you would like to do or could do better if you were stronger and fit. 2. Making a list of things that might get in the way of you doing your exercise. Come up with ways you can keep exercising if these happen. 3. Writing down your goals. How could exercise help you reach your goals? 4. Telling someone when you start your exercise routine. It can help you stick to it. Who could youtell? 5. Exercising in a group or with another person. Is there a group exercise class you would like to try? Is there a person who would exercise with you? Should I warm up and cool down when I exercise? Yes. Spend 2-3 minutes warming-up at a light activity level before you exercise. Cool down for 2-3 minutes when you are done. What if my pain gets worse with exercise? Pain with exercise is normal. You may have some muscle soreness when you start an exercise routine.Your pain may get worse while you are exercising, especially when you first start a program. This is not a warning sin that you are causing injury. You will not make your chronic pain condition worseby exercising. Your pain will start to get better with regular exercise and you will be able to do m ore activities that you enjoy. If pain is stopping you from finishing your exercise routine, lower the the intensity (how hard youare working). If your pain is worse for more than 2 hours after you finish exercising, lower the intensity or amount of time you exercise at the next session. Remember, pain with exercise is normal for some people with chronic pain and is not a warning sign that you are causing injury. Regular exercise will lessen your pain. It is very hard to make chronicpain better without exercise. When should I ask for help? Talk with your health care provider if you have any of the following during or after you exercise: ??? Nausea and vomiting (throwing up) ??? Are not able to catch your breath ??? Chest pain ??? Lightheadedness, dizziness or feeling faint ??? A new pain or injury Frequently Asked Questions Why should I exercise? Everyone benefits from movement and exercise. It is needed for good health. People with a chronic pain condition need exercise and activity to send their body and brain signals needed to adapt and get better. Regular exercise helps your body become stronger so you can do more activities you enjoy. It also helps manage and improve your: ?? Chronic pain condition ?? Quality of life ?? Body weight ?? Blood pressure ?? Mood ?? Fatigue (tiredness) ?? Sleep Exercise can help you stay engaged with your family and community; so you have a happier, healthierand more productive life. What is the best exercise for chronic pain? There is no single best exercise that works for all people. The best exercise is the one you enjoy doing. Group exercise classes can be fun. Such as yoga, alison chi, walking clubs or dance classes. The most important thing to do is stay active and keep moving! Choose something you enjoy. Switch things up if you start to notice lack of interest. I have not exercised in many years, where should I start? Exercising does not need to be exhausting to be of benefit. If walking is an option for you, it is a wonderful way to start. Stretching and strengthening exercises are also great starting points. Many people need to work slowly toward exercise goals. The important thing is not what you do, but rather that you stay active. The good news is that you will see improvements quickly with even smallamounts of exercise. Is exercise safe? Yes. Most people find a safe and effective exercise program to meet their health goals and preferences. Not being inactive is much more dangerous to your health than being active. Should I exercise if I am sick? If you have a cold or flu it is best to take a day off. Can medicines affect my ability to exercise? Yes. Side effects of some medicines may cause dizziness, lower blood sugar or change your heart rate. Ask your pharmacist or care provider about side effects that may affect your exercise routine. What are some warning signs I should look for while exercising? Talk with your care provider if you have any of the following during or after your exercise routine: ?? Nausea and vomiting ?? Not able to catch your breath ?? Chest pain ?? Lightheadedness ?? Dizziness ?? Feeling faint ?? A new pain or injury. Am I too old to exercise? No. Exercise is good for people of all ages. Do I need special clothing or equipment? No. Wear clothes and shoes that are comfortable and safe. You do not need special equipment either.Strength training can be advanced by adding weight to your activities. Use elastic bands, cans of soup or water jugs as weights instead of buying special equipment. When should I add weights to a strengthening exercise? Your body is amazingly adaptable. Set goals that you are confident of reaching and when you do, setnew goals. Work slowly and continually. If you keep giving your body new challenges it will keep adapting. When you are doing strength training, one way to challenge your body is to lift more weight. Tips for increasing intensity: ?? When you can finish the repetitions without a weight, add weights to your program. ??? When you add more weight you might need to do fewer repetitions. ??? Slowly do more repetitions with the weight until you can do 3 sets of 10 reps. What if I feel I can do more than 30 minutes of aerobic exercise? There is no set limit on the amount of exercise you do. Set goals that yyou are able to reach. Increase the number of minutes slowly at each session. The Centers for Disease Control (CDC) recommends 30 minutes of exercise 5 days a week for a total of 150 minutes each week to see health benefits. People with chronic pain will see benefits with less than 150 minutes of activity each week. Should I go to an exercise class or fitness center? Exercise can be done anywhere, at home, a fitness center, a park or a neighborhood. Going to a class or fitness center may help you keep a schedule and make exercising more fun. If you go to a fitness center or a class, work at a pace that is best for you. Will my health insurance help cover the cost of an exercise class? Some insurance companies and employers offer benefits for health and wellness, especially if a doctor orders it. It is best for you to call your insurance company to learn more about your benefits. How long before aerobic exercise should I eat? Some people need to wait after eating before exercising, while others do not. You will need to findout what works best for you. Do I have to do my aerobic exercise all at one time? When doing aerobic exercise, you may break it up into as many sessions as needed throughout the day. The CDC recommends 30 minutes of exercise 5 days a week for a total of 150 minutes each week to see health benefits. People with chronic pain often see benefits with less than 150 minutes of activity each week. It is best to stay active and keep moving. What is the best time of day to exercise? Choose a time of day that best fits your daily routine. Some people find it harder to go to sleep after they exercise and need to do it earlier in the day, but others do not. You will need to find out what works best for you. How do I change my exercise program on a day when I have more pain? Exercising on a day when you have more pain may help lessen your pain. Remember, exercise will not make your condition worse. Try to exercise for at least 5 minutes to get started and you may be ableto keep going. You can also do a longer warm-up period to help get yourself moving and slowly work up to a moderate intensity exercise. The most important thing is to stay active and keep moving. Weekly Exercise Tracker Use this to record your exercise. Follow the exercise instructions your provider gives you. Name: Week of: Activity Type Wednesday Aerobic Exercise Strengthening Stretching Exercises for Chronic Back Pain This strengthening and stretching program will help you get stronger and more flexible so you can do the activities you enjoy with less effort. Choose a time of day that best fits your daily routine.Please talk with your primary care provider or physical therapist if you have questions or concerns. Strengthening 1. Partial curl up a. Lie on your back on a bed or a mat on the floor. b. Bend your knees and keep them hip distance apart. c. Cross your arms over your chest. d. Tighten your abdominal muscles and bring your shoulders and head off the mat or bed. e. Slowly lower back to the start position. Tips ??? Pick a spot on the ceiling and watch it to keep your head and neck in a good position. ??? Lift your head, neck and shoulder blades off the floor as a unit. ??? Hold your arms straight with your fingertips toward your knees to make it easier. ??? Put your fingertips by your ears and elbows out to the side to make it harder. Repetitions Number of Sets Days per Week 10 3 3 to 5 2. Bridging a. Lie on your back on a bed or mat on the floor. b. Bend your knees and keep them hip distance apart. c. Rest your hands at your sides. d. Tighten your abdominal muscles and buttocks. e. Push into your heels and raise your buttocks off the floor/bed to make a bridge. Tip Keep your pelvis in neutral position during the exercise. Do not arch or flatten your back. Repetitions Number of Sets Days per Week 10 3 3 to 5 Stretching 1. Lower trunk rotation stretch a. Lie on your back on a bed or mat on the floor. b. Bend your knees and put your feet together. c. Rest your hands at your sides. d. Keep your knees together. e. Rock your knees to one side until a gentle stretch is felt on the outside of your hip/back. f. Repeat the stretch on the opposite side. Tip Keep your hips on the bed or mat. Hold Repetitions Days per Week 30 seconds 3 Daily 2. Hamstring stretch Seated a. Sit on a sturdy chair on a non-slip floor. b. Bend one knee, putting your foot flat on the floor. c. Straighten your other leg, keeping your heel on the floor. d. Gently lean forward until a stretch is felt behind your straight knee/thigh. Alternate position for hamstring stretch a. Lie on your back. b. Raise your leg and hold the back of your thigh until a stretch is felt behind your knee/thigh. Tip Tighten your stomach muscles to support your back as you do the exercise. Hold Repetitions Days per Week 30 seconds 3 Daily 3. Seated forward bend stretch a. Sit on a sturdy chair on a non-slip floor. b. Put your knees and feet wide apart. c. Relax your arms inside your thighs. d. Gently bend forward reaching toward the floor until a gentle stretch is felt in your lower back. e. Go back to the starting position. Tip ??? Put your hands on your thighs when you bend forward. ??? Breathe during the exercise. Hold Repetitions Days per Week 30 seconds 3 Daily Exercises for Chronic, Widespread Pain This strengthening and stretching program will help lessen your pain, and get you stronger and moreflexible, so you can do the activities you enjoy with less pain and effort. Choose a time of day that best fits your daily routine. Please talk with your primary care provider or physical therapist if you have questions or concerns. Strengthening 1. Partial curl up a. Lie on your back on a bed or a mat on the floor. b. Bend your knees and keep them hip distance apart. c. Cross your arms over your chest. d. Tighten your abdominal muscles and bring your shoulders and head off the mat or bed. e. Slowly lower back to the start position. Tips ??? Pick a spot on the ceiling and watch it to keep your head and neck in a good position. ??? Lift your head, neck and shoulder blades off the floor as a unit. ??? Hold your arms straight with your fingertips toward your knees to make it easier. ??? Put your fingertips by your ears and elbows out to the side to make it harder. Repetitions Number of Sets Days per Week 10 3 3 to 5 2. Bridging a. Lie on your back on a bed or mat on the floor. b. Bend your knees and keep them hip distance apart. c. Rest your hands at your sides. d. Tighten your abdominal muscles and buttocks. e. Push into your heels and raise your buttocks off the floor/bed to make a bridge. Tip Keep your pelvis in neutral position during the exercise. Do not arch or flatten your back. Repetitions Number of Sets Days per Week 10 3 3 to 5 3. Wall push up a. Stand at a wall with your feet hip distance apart. b. Place your hands on the wall at shoulder height and shoulder distance apart. c. Slowly bend your elbows and bring your chest closer to the wall. d. Slowly push away from the wall until your elbows are straight. Tip Be sure to keep your feet flat on the floor. Repetitions Number of Sets Days per Week 10 3 3 to 5 4. Wall squat a. Lean your back against a wall or closed door with your feet hip distance apart. b. Slide your body down the wall/door until you feel your thigh muscles working or you reach a position similar to sitting in a chair. c. Hold the position, and then go back to the standing position. Tips ??? Be sure your heels are 18 to 20 inches from the wall. ??? Your knees should not go out farther than your toes. Repetitions Number of Sets Days per Week 10 3 3 to 5 5. Single leg stance a. Stand at a counter or sturdy chair on a non-slip floor. Do this for arm support. b. Lift 1 leg and stand on the other leg. Tip You can do this while brushing your teeth or doing dishes to fit it into your regular daily routine. Repetitions Number of Sets Days per Week 10 3 3 to 5 6. Marching in standing a. Stand at a counter or sturdy chair on a non-slip floor. b. Start marching, lifting 1 leg at a time. c. Lift your leg only as high as you can tolerate. Tip Breathe normally and tighten your abdominal muscles. Repetitions Number of Sets Days per Week 10 3 3 to 5 Stretching 1. Hamstring stretch Seated a. Sit on a sturdy chair on a non-slip floor. b. Bend one knee, putting your foot flat on the floor. c. Straighten your other leg, keep your heel on the floor. d. Gently lean forward until a stretch is felt behind your straight knee/thigh. Alternate position for hamstring stretch a. Lie on your back. b. Raise your leg and hold the back of your thigh until a stretch is felt behind your knee/thigh. Tip Tighten your stomach muscles to support your back as you do the exercise. Hold Repetitions Days per Week 30 seconds 3 Daily 2. Pectoral stretch (3 positions) a. training consultant a doorway and place your hands on each side of the doorway. b. For each of the 3 positions, take a small step forward into the doorway until a gentle stretch is felt in the front of your shoulder. c. Repeat in each of the 3 positions a. Hands at hip level b. Hands at shoulder level c. Hands above your shoulders Tip Keep your back straight and tighten your abdominal muscles. Hold Repetitions Days per Week 30 seconds 3 Daily Created 11/2017 - [facility] Project Approved 11/2017 - Patient Education Program documented in this encounter Progress Notes * Coco Leos PA-C - 05/02/2018 1:30 PM CDT Clinic Note Encounter Date: 05/02/2018 Subjective: Chief Complaint: Chief Complaint Patient presents with ??? Follow-up 2 mo f/u 45 min, chronic pain/depression History of Present Illness:Edilberto Hawley is a 62 y.o. Established pt whom I am familiar with, presents to the Department of Family Medicine [facility] for hospital follow up. He was seen in pain clinic on 12/28/17 notes reviewed, MRI ordered. He stopped his gabapentin in November. Reduced amitriptyline to 37.5 mg. No longer having sedation from medications. Med changes 02/15/18: - add diclofenac gel for neck OA. - Increase duloxetine to 60 mg bid. Tolerating this well. In November we increased duloxetine from 30 mg to 60 mg. Last visit we increased his duloxetine to 60mg bid. Reports mood stable, no SI none since hospitalization. In November I also decreased his oxycodone to tid prn from qid prn, keeping oxycontin the same. He reports noticing the difference and that pain was not as well controlled, but his pain is tolerable. Current pain, still burning in LLE. Today, 05/02/2018 - LBP 7/10, last night was 8-9/10 Used TENS unit most of the night last night. He does find that helpful. Left shoulder, will have burning down into elbow. R shoulder. C/o left occipital to L temporal COYNE. Also having muscle cramps, nearly nightly. He has been workingout in the heat. He drinks a lot of water. Moved to [place] with grandson, helping to maintain property with yard work and household jobs. He had C-spine MRI given his pain radiating down into the right upper extremity. The TFECSI was not helpful. However, pt does not allow his pain to keep him from activities, he pushes and overdoes it. PHQ-9 Screening: Trouble falling or staying asleep or sleeping too much: Not at all (05/02/18 4:27 PM) Feeling tired or having little energy: Several days (05/02/18 4:27 PM) Poor appetite or overeating: Not at all (05/02/18 4:27 PM) Feeling bad about yourself--or that you are a failure or have let yourself or your family down: Several days (05/02/18 4:27 PM) Trouble concentrating on things, such as reading newspaper or watching TV: Not at all (05/02/18 4:27PM) Moving or speaking so slowly so that others would notice or being so restless that you have been moving around a lot more than usual: Not at all (05/02/18 4:27 PM) Thoughts that you would be better off or of hurting yourself: Not at all (05/02/18 4:27 PM) Total Score (PHQ-9 includes PHQ-2 questions/score): 3 (05/02/18 4:27 PM) Total Score (PHQ-9 includes PHQ-2 questions/score): 14 (01/07/18 12:18 PM) Total Score (PHQ-9 includes PHQ-2 questions/score): 12 (11/16/17 12:31 PM) denies SI 05/02/2018 Active Problem List with Overview Notes Diagnosis Date Noted ??? Low back pain 09/29/2017 ??? Closed fracture of transverse process of lumbar vertebra with routine healing 05/19/2017 ??? Encounter related to worker's compensation claim 04/16/2017 Back 05/11/2017 ??? 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 [...] radiculopathy ??? History of left hip replacement 10/01/2016 2016 ??? History of repair of left rotator cuff 10/01/2016 Health Maintenance Topic Date Due ??? Hepatitis B Vaccine (1 of 3 - Primary Series) 1955 ??? Zoster Vaccine (1 of 2 - RZV, Shingrix) 2003 ??? Colonoscopy 05/11/2018 ??? Prostate Cancer Screening 05/02/2020 ??? Lipid Disorder Screening 05/02/2023 ??? Td Vaccine 04/16/2027 ??? Tdap Vaccine [...] topically 3 times daily. Day supply: 30 (Patient not taking: Reported on 05/02/2018 ) 400 g 5 ??? DULoxetine 60 mg XR capsule Take 1 capsule (60 mg total) by mouth 2 times daily. 60 capsule 11 ??? intranasal mucosal atomization device (MAD NASAL) Use for nasal administration of Naloxone. 2 Each 0 ??? lidocaine 5 % ointment Apply topically 2 times daily as needed. (Patient not taking: Reported on 05/02/2018 ) 35.44 g 11 ??? naloxone 1 mg/mL [...] mouth 2 times daily. Earliest Fill Date: 05/11/18 60 tablet 0 ??? oxyCODONE-acetaminophen 10-325 mg per tablet Take 1 tablet by mouth every 4 hours as needed forPain. Earliest Fill Date: 05/11/18 90 tablet 0 ??? polyethylene glycol-electrolyte (GOLYTELY) suspension Take as directed the evening before your procedure. 4000 mL 0 ??? sennosides (SENEXON) 8.6 mg tablet Take 1 tablet by mouth 2 times daily as needed. ??? tamsulosin 0.4 mg capsule Take 1 capsule (0.4 mg total) by mouth daily. 30 capsule 11 No current facility-administered medications for this visit. [...] History Narrative Mr. 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 Review of Systems Shoulder pain, reports considering surgery for rotator cuff tear. Denies fever or chills. Weight loss 15 lbs since February - back to baseline Objective: BP 120/73 Pulse 77 Temp 36.7 ??C (98.1 ??F) (Tympanic) Wt 86.3 kg (190 lb 4.1 oz) BMI 26.54kg/m?? General: Patient is awake, alert, Ox3. HEENT: PERRL, EOMI, no conjunctivitis. Oropharynx clear without erythema or exudate. Neck: Supple without lymphadenopathy Lungs: CTAB, without wheeze or crackle. Heart: RRR, no murmur. Peripheral pulses are 2+ and symmetric Abd: Soft, non-tender, non-distended, good bowel sounds in all four quadrants Ext: No cyanosis, clubbing or edema BacK: neg SLR B, reports buring in R hip with R SLR and pain with internal/external rotation. 5/5 strength in plantar/dorsiflexion and EHL B. Weak hip flex/extension bilaterally. Prostate exam: normal rectal tone, left side of prostate firm to palpation, slight enlargement noted. Results for orders placed or performed in visit on 05/02/18 COMPREHENSIVE METABOLIC PANEL (CMP) Result Value Ref Range Sodium 141 135 - 145 mEq/L Potassium 4.2 3.5 - 5.0 mEq/L Chloride 103 95 - 107 mEq/L CO2 24 22 - 29 mEq/L BUN 12 10 - 20 mg/dL Creatinine 0.8 0.6 - 1.2 mg/dL Glucose 107 65 - 139 mg/dL Calcium 9.0 8.5 - 10.5 mg/dL Total Protein 6.8 6.0 - 8.0 g/dL Albumin 4.2 3.4 - 4.8 g/dL AST 37 0 - 40 U/L ALP 86 40 - 129 U/L Bilirubin Total 0.5 <=1.2 mg/dL ALT 36 0 - 41 U/L Anion Gap 14 <17 mEq/L Calculated GFR >90 >60 mL/min/1.73 m2 DRUGS OF ABUSE - URINE Result Value Ref Range Amphetamines, Urine Negative Negative Benzodiazepine, Urine Negative Negative Cocaine, Urine Negative Negative Opiate, Urine Negative Negative Oxycodone, Urine Presumptive Positive (A) Negative LIPID PANEL Result Value Ref Range Specimen Type Non-fasting Cholesterol 144 mg/dL Triglycerides 350 (H) 0 - 150 mg/dL HDL Cholesterol 40 >=40 mg/dL LDL - Calculated 34 <=130 mg/dL Non-HDL Cholesterol (Calc) 104 mg/dL PROSTATE SPECIFIC ANTIGEN (PSA), TOTAL, SCREENING Result Value Ref Range PSA, Screen 0.31 0.00 - 4.50 ng/mL Assessment/Plan: Pleasant 61-year-old male with chronic pain on chronic narcotics contract. In spring I reduced his short acting oxycodone/acetaminophen from 120 per month to 90 per month. He had been on OxyContin 15twice daily plus oxycodone/acetaminophen 10/325 #120 per month for years prior to establishing [facility]. This was the first change in his opioid prescription in years. He has tolerated well. We have attempted to optimize non-narcotic therapy. [...] he did have a Brain MRI through [employer] in [facility] it was normal. He also complted neuropsych eval which felt he was back to baseline. The psychologist performing his neuropsych evaluation felt he had significant depression. He started duloxetine in September, symptoms unchanged at October follow up and dose was increased to 40 mg. The following week, he presented to his work [employer] appt and was sent to the ED for suicidalideation, and was admitted. They increased his duloxetine to 90 mg while inpt, but pt went back to 30 mg after discharge. We have gradually increased this back to 60 mg bid and his mood is doing well on this regimen. Encourage continued TENS use, advise using 30 minutes 4 times a day for maximum benefit. I do not believe the sedation is from his narcotics as his dose has not changed in many years. However, he historically has been sensitive to gabapentin and amitriptyline is making him feel groggy. I referred to pain clinic for consideration fo ECSI injection as he has an increase in neuropathic pain in the right dermatomal distribution. He saw pain clinic on 02/15/18 for left L3 and L4 transforaminal epidural steroid injections; The ECSI was not that helpful. He is reporting worsening LUTS with abnormal prostate exam, has firmness, nontender on left lobes of prostate. Starting tamsulosin for symptoms. PSA has been ordered. Family history of prostate CA inFather and PU; Refer to urology for LUTS with left sided firmness on prostate exam with minimal enlargement. ICD-10-CM ICD-9-CM 1. Other chronic pain G89.29 338.29 PAIN MANAGEMENT - TRANSCUTANEOUS ELECTRICAL NERVE STIMULATION (TENS) - ACCURELIEF DUAL CHANNEL PAIN MANAGEMENT - EXERCISE COMPREHENSIVE METABOLIC PANEL (CMP) DRUGS OF ABUSE - URINE 2. Neck pain M54.2 723.1 3. Chronic bilateral low back pain, with sciatica presence unspecified M54.5 724.2 PAIN MANAGEMENT - TRANSCUTANEOUS ELECTRICAL NERVE STIMULATION (TENS) - ACCURELIEF DUAL CHANNEL G89.29 338.29 PAIN MANAGEMENT - EXERCISE COMPREHENSIVE METABOLIC PANEL (CMP) DRUGS OF ABUSE - URINE 4. Tubular adenoma of colon D12.6 211.3 ENDOSCOPY COLONOSCOPY 5. Lower urinary tract symptoms (LUTS) R39.9 788.99 tamsulosin 0.4 mg capsule PROSTATE SPECIFIC ANTIGEN (PSA), TOTAL, SCREENING OUTPATIENT CONSULT UROLOGY - GENERAL 6. Lipid screening Z13.220 V77.91 LIPID PANEL 7. Abnormal prostate exam R39.89 793.5 OUTPATIENT CONSULT UROLOGY - GENERAL Follow Up FOLLOW-UP: 8 Weeks Question Answer Comment Return In: 8 Weeks Appt Duration: 30 mins Appointment Day: Any Day Schedule with: betito Return Reason: chronic pain, LUTS, Machine Lead Burner Needed (specify language)? Jill Leso PA-C [facility] [address] [place] [address] documented in this encounter Plan of Treatment [...] of use: As long as needed Video/Handout: [email or web address] Pain Management - Exercise Pain Management Coco Vega PA-C Note: Exercise: General Aerobic ?? Duration: 3 to 5 days per week for 20 minutes per day ?? Intensity: Moderate Strengthening: neither Back nor General (for widespread pain) nor Shoulder ?? Intensity: Moderate ?? Duration: 2 to 4 days per week ?? Instructions: See attached documentation for details Video/Handout: [email or web address] documented as of this encounter Procedures Procedure Name Priority Date/Time Associated Diagnosis Comments PROSTATE SPECIFIC ANTIGEN (PSA), TOTAL, SCREENING Routine 05/02/2018 2:45 PM CDT Lower urinary tract symptoms (LUTS) DRUGS OF ABUSE - URINE Routine 8 2:45 PM CDT Other chronic pain Chronic bilateral low back pain, with sciatica presence unspecified LIPID PANEL Routine 05/02/2018 2:45 PM CDT Lipid screening COMPREHENSIVE METABOLIC PANEL (CMP) Routine 05/02/2018 2:45 PM CDT Other chronic pain Chronic bilateral low back pain, with sciatica presence unspecified documented in this encounter Results * PROSTATE SPECIFIC ANTIGEN (PSA), TOTAL, [...] ORDERABLES Final R esult Performing Organization Address [facility]/ZIP Co de Phone Number [facility] [address] [address] * (ABNORMAL) LIPID PANEL (05/02/2018 2:45 PM [...] ORDERABLES Final R esult Performing Organization Address [facility] Co de Phone Number [facility] [address] [address] * (ABNORMAL) DRUGS OF ABUSE - URINE (05/02/2018 2:45 PM CDT) Amphetamines - Urine Negative Negative 05/02/2018 5:40 PM CDT [facility] Comment: Test cut-off: 1000 ng/mL for d-methamphetamine. Benzodiazepines - Urine Negative Negative 05/02/2018 5:40 PM CDT [facility] Comment: Test cut-off: ??100 ng/mL Cocaine - Urine Negative Negative 8 5:40 PM CDT [facility] Comment: Test cut-off: ??300 ng/mL Opiates - Urine Negative Negative 8 5:40 PM CDT [facility] Comment: Test cut-off: ??300 ng/mL for morphine Oxycodone - Urine Presumptive Positive(A) Negative 05/02/2018 5:40 PM CDT [facility] Comment: Test cut-off: ??300 ng/mL Amphetamines assay cross-reacts well with amphetamine and methamphetamine, as well as the mobile designer amphetamines MDMA ( Ecstasy ), MDA, MDEA ( Cesia ), MBDB, PMA, and PMMA. Labetalol may also produce false positives due to cross-reactivity of a metabolite. The amphetamines assay has little or no cross-reactivity with ephedrine, pseudoephedrine, phentermine, and methylphenidate. Opiates assay has low cross-reactivity for buprenorphine, fentanyl, meperidine, methadone, oxycodone, and propoxyphene (all have cut-offs greater than 75,000 ng/mL). Please see Laboratory Services Handbook ([email or web address]) for more detailed information on assay cross-reactivity. Drug of abuse screening tests are to be used for medical purposes only and not for non-medical purposes (e.g., employee, director it, or forensic testing). Urine specimen (specimen) 05/02/2018 2:45 PM CDT 05/02/2018 2:51 PM CDT us Coco Leos PA-C RANDOM URINE Final Result [facility] [place] [address] * COMPREHENSIVE METABOLIC PANEL (CMP) (05/02/2018 2:45 PM CDT) Sodium 141 135 - 145 mEq/L 05/02/2018 3:19 PM CDT [facility] Potassium 4.2 3.5 - 5.0 mEq/L 05/02/2018 3:19 PM CDT [facility] Chloride 103 95 - 107 mEq/L 05/02/2018 3:19 PM CDT [facility] CO2 24 22 - 29 mEq/L 05/02/2018 3:19 PM CDT [facility] BUN (blood urea nitrogen) 12 10 - 20 mg/dL 05/02/2018 3:19 PM CDT [facility] Creatinine 0.8 0.6 - 1.2 mg/dL 05/02/2018 3:19 PM CDT [facility] Comment: Creatinine switched to enzymatic method on 03/24/2011. ??GFR equation switched to IDMS-traceable MDRD equation on 03/24/2011. Calculated GFR values are not valid in clinical settings where serum creatinine is changing. Glucose 107 65 - 139 mg/dL 05/02/2018 3:19 PM CDT [facility] Comment: Reference range is for a random glucose concentration. The Expert Committee on the Diagnosis and Classification of Diabetes has defined impaired fasting glucose as greater than or equal to 100 mg/dL but less than 126 mg/dL (Diabetes Care 28 Suppl 1: S41, 2005). Calcium 9.0 8.5 - 10.5 mg/dL 05/02/2018 3:19 PM CDT [facility] Total Protein 6.8 6.0 - 8.0 g/dL 05/02/2018 3:19 PM CDT [facility] Albumin 4.2 3.4 - 4.8 g/dL 05/02/2018 3:19 PM CDT [facility] AST (Aspartate Aminotransferase) 37 0 - 40 U/L 05/02/2018 3:19 PM CDT [facility] Comment: Adult reference ranges updated on 10/10/13 at 830am ALP (Alkaline Phosphatase) 86 40 - 129 U/L 05/02/2018 3:19 PM CDT [facility] Bilirubin, Total 0.5 <=1.2 mg/dL 05/02/2018 3:19 PM CDT [facility] ALT (Alanine Aminotransferase) 36 0 - 41 U/L 05/02/2018 3:19 PM CDT [facility] Comment: The upper limit of normal for alanine aminotransferase (ALT) reference ranges for adults is controversial with some authorities recommending limit as low as 30 U/L for males and 19 U/L for females. There is increased incidence of subclinical liver disease (e.g., early steatohepatitis) in patients with ALT values in the range of 31-41 U/L for males and 20-33 U/L for females. ALT values should always be interpreted in conjunction with clinical history, physical examination findings, and, if applicable, data from other diagnostic tests. Anion Gap 14 <17 mEq/L 05/02/2018 3:19 PM CDT [facility] eGFR - Calculated >90 >60 mL/min/1. 73 m2 05/02/2018 3:19 PM CDT [facility] Blood specimen (specimen) Venipuncture / Unknown 05/02/2018 2:45 PM CDT 05/02/2018 2:51 PM CDT us Coco Leos PA-C CHEMISTRY ORDERABLES Final R esult Performing Organization Address City/State/[facility] Co de Phone Number [facility] [address] [address] documented in this encounter Visit Diagnoses Diagnosis Other chronic pain- Primary Neck pain Cervicalgia Chronic bilateral low back pain, with sciatica presence unspecified Tubular adenoma of colon Benign neoplasm of colon Lower urinary tract symptoms (LUTS) Other symptoms involving urinary system Lipid screening Screening for lipoid disorders Abnormal prostate exam Nonspecific (abnormal) findings on radiological and other examination of genitourinary organs documented in this encounter Additional Health Concerns Assessment Noted Time PHQ-9 Depression Total Score: 3 05/02/20 18 4:27 PM CDT PHQ-2 Depression Total Score: 1 05/02/20 18 4:27 PM CDT documented as of this encounter Care Teams New Accounts Clerk Relationship Specialty Start Date End Date Coco Leos PA-C [address] [place] [id number] PCP - General Physician Sales Representative Wire Rope 02/17/17 12/15/22 documented as of this encounter
--- OUTSIDE RECORDS SUMMARY | 2024-11-23 00:13 | XMS_ITS | Encounter Summary ---
Author Organization [facility] Care Address [address] [place] [address] Phone Care Team Providers Care It Portfolio Manager Name Role Phone Coco Leos PA-C Primary Care Provider [phone] Provider, No-Primary Care Primary Care Provider Unavailable Encounter Details Date Type Department Care Team (Late st Contact Info) Description 02/08/2018 Pharmacy Visit RX [facility] [address] [place] [phone] Social History Tobacco Use Types Packs/Day [...] Depression Total Score: 14 018 12:18 PM SUSTAINABILITY MANAGER PHQ-2 Depression Total Score: 5 01/07/20 18 12:18 PM SUSTAINABILITY MANAGER documented as of this encounter Care Teams It Portfolio Manager Relationship Specialty Start Date End Date Coco Leos PA-C [address] [place], [place] [phone] PCP - General Physician Valve Inspector 02/17/17 12/15/22 Provider, No-Primary Care [place] PCP - General 12/16/22 documented as of this encounter
--- OUTSIDE RECORDS SUMMARY | 2024-11-23 00:13 | XMS_ITS | Encounter Summary ---
Author Organization [facility] Care Address [address] [place] [address] Phone Care Team Providers Care Medical Imaging Technician Name Role Phone Coco Leos PA-C Primary Care Provider [phone] Reason for Visit * Reason Comments Patient Reported Reason For Visit proc / PAIN SELECTIVE NERVE ROOT BLOCK, LUMBAR/SACRAL W FLUORO Encounter Details Date Type Department Care Team (Late st Contact Info) Description 02/15/2018 9:00 AM CDT Office Visit [facility] - Anesthesia - Chronic Pain [address] [place] [address] Chris Sanchez MD [address] [place], [place] [phone] Social History Tobacco Use Types Packs/Day Years [...] Sign Reading Time Taken Comments Blood Pressure 122/75 02/15/2018 9:08 AM CDT Pulse 71 02/15/2018 8:14 AM CDT Temperature 36.4 ??C (97.5 ??F) 02/15/2018 8:14 AM CD T Respiratory Rate - - Oxygen Saturation 95% 02/15/2018 9:08 AM CDT Inhaled Oxygen Concentration - - Weight 93.1 kg (205 lb 4 oz) 02/15/2018 8:14 AM CDT Height 180.3 cm (5' 11 ) 02/15/2018 8:14 AM CDT Body Mass Index 28.63 02/15/2018 8:14 AM CDT documented in this encounter Patient Instructions * Discharge Instructions* Stephanie Flores RN - 02/15/2018 8:18 AM CDT Epidural Steroid Injection If you have questions or concerns, call: Pain Management [facility] at [phone] from 8 a.m. to 5 p.m. Wednesday through Wednesday. OR The hospital reflow operator at [phone] on nights, weekends and holidays. Ask to talk with the pain doctor strand and binder controller. OR 24 hours a day toll-free at and ask to talk to the pain doctor strand and binder controller. OR Go to the emergency room if you are having a hard time breathing or are short of breath. Call us if: ??? You have a fever higher than 101.0?? F (or 39.0?? C). ??? You have redness or drainage at the injection site. ??? You have more pain than normal at the injection site. ??? You have a headache that is worse than normal and does not get better. ??? You have a neck pain or stiffness that is worse than normal and does not get better. ??? You have numbness, tingling or weakness at or below the level of the injection. ??? You cannot control your bladder (peeing) or bowel movements. You had an injection into the epidural space of your spine. The medicine used was a combination of local anesthetic and a steroid. ??? The local anesthetic may provide some relief for several hours. After this medicine wears off, you may start having pain again until the steroid starts working. ??? The steroid starts to lessen inflammation (swelling) in 7 to 10 days. As the steroid starts to work, your pain will become less. ??? Side effects from a steroid injection are less than if you take the steroid by mouth. Side effects are: o More pain than normal at the injection site o Headaches that go away in 24 hours o Red or hot face o Anxiety o Sleeplessness o Fever o High blood sugar o Lower ability to resist infections for a short time You may have been given a contrast dye. You can have an allergic reaction to this. Go to the emergency room right away if you have: ??? Nausea (feel like you have to throw up) ??? Itching ??? Hives (raised, red bumps on your skin) ??? Swelling of the eyelids and lips ??? Sneezing ??? Trouble breathing If you held your blood thinner for the injection, start taking it the day after your injection. Activity: ??? Do physical therapy if your doctor orders it. Do it to get the most help from this injection. ??? Do not drive a car, use machinery or power tools for 12 to 24 hours after the injection. It cancause numbness and weakness at the site. Side Effects: After the injection, you may have: ??? A small amount of bleeding ??? Bruising ??? Pain for 1 to 2 days o Use an ice pack or take your usual pain medicine to help. Instruction Status: Reviewed with patient/caregiver and understanding verbalized. Copy provided. Finalized by: gregg [facility] 03/31 documented in this encounter Progress Notes * Chris Sanchez MD - 02/15/2018 9:00 AM CDT Chronic Pain (Clinic/Consult Note) Encounter Date: 02/15/2018 Subjective: Chief Complaint: Back and lower extremity [...] in a work-related injury in April 2017. A lumbar MRI from 12/2107 showed pathology consistent with new onlset LLE pain and weakness. He states he hurts everywhere, has a terrible headache on the left side, and ringing in his ears. He states all of this has worsened since his accident. He continues to have burning pain that radiates down the left leg in the anteromedial thigh and courses medially distal to the ankle. He denies any saddle anesthesia, or bowel/bladder accident. He returns for scheduled TFESI. N.p.o. status is appropriate and he has a emt driver present. Denies any recent illnesses and has not taken any blood thinning medications. 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 [...] mouth 2 times daily. Earliest Fill Date: 02/09/18 60 tablet 0 ??? oxyCODONE-acetaminophen 10-325 mg per tablet Take 1 tablet by mouth every 4 hours as needed forPain. Max 3/day. Earliest Fill Date: 02/09/18 90 tablet 0 ??? sennosides (SENEXON) 8.6 mg tablet Take 1 tablet by mouth 2 times daily as needed. Current Facility-Administered Medications Medication Dose Route Frequency Provider Last Rate Last Dose ??? bupivacaine (pf) 0.25% (MARCAINE) injection 1-20 mL 1-20 mL Injection PRN Lissa Rollins MD 1.5 mL at 02/15/18900 ??? dexamethasone (pf) (DECADRON) 10 mg/mL injection 4-20 mg 4-20 mg Injection PRN Lissa Rollins MD 10 mg at 02/15/18900 ??? iohexol (OMNIPAQUE 300) injection 1-5 mL 1-5 mL Injection PRN Rollins, Lissa J, MD 0.5 mL at 02/15/18 0901 No Known Allergies Social History Social History [...] History Narrative Mr. 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 Review of Systems: Constitutional: negative Eyes: negative Ears, nose, mouth, throat, and face: negative Respiratory: negative Cardiovascular: negative Gastrointestinal: negative Genitourinary: negative Integument/breast: negative Hematologic/lymphatic: negative Musculoskeletal: see HPI Neurological: see HPI Behavioral/Psych: negative Endocrine: negative Allergic/Immunologic: negative Objective: BP 122/75 Pulse 71 Temp 36.4 ??C (97.5 ??F) (Tympanic) Ht 1.803 m (5' 11 ) Wt 93.1 kg (205 lb 4 oz) SpO2 95% BMI 28.63 kg/m?? Constitutional: Normal appearance, grooming and nutrition. [...] 3. Assessment: Encounter Diagnoses ICD-10-CM ICD-9-CM 1. Osteoarthritis of spine with radiculopathy, lumbosacral region M47.27 721.3 2. Lumbar radicular pain M54.16 724.4 3. Other chronic pain G89.29 338.29 Edilberto Hawley is a 62 y.o. gentleman [...] Patient wants to proceed with this injection today. - No Ibuprofen or 2 days. No Aleve for 7 days. Multidisciplinary Pain Management: In the presence of [...] provider on prior visits with them. Follow-up: 1 month for evaluation of neck pain Staff Physician Comments: Staff Involved: Staff and Resident/Fellow Nikko Frost MD TEACHING: I performed a history and physical examination of the patient and discussed his management with theresident/fellow. I reviewed the resident???s/fellow's note and agree with the documented findings and plan of care Chris Sanchez MD [facility] Clinical Environmental Services Assistant Department of Anesthesia, Division of Chronic Pain Management Pager [phone] documented in this encounter Procedure Notes * Chris Sanchez MD - 02/15/2018 9:00 AM CDTAssociated Order(s): PAIN SELECTIVE NERVE ROOT BLOCK, LUMBAR/SACRAL W FLUORO Pre-Procedure Diagnose(s): Lumbar radicular pain Post-Procedure Diagnose(s): Lumbar radicular pain ANE PAIN Procedure Note Procedure Date: 02/15/2018 Attending Staff: Chris Sanchez MD PAIN SELECTIVE NERVE ROOT BLOCK, LUMBAR/SACRAL W FLUORO Consent Obtained: After reviewing the potential risks and benefits as well as the performance of the procedure with the patient, an informed written consent was obtained. Pre-operative Diagnosis: lumbar radiculopathy Post-operative Diagnosis: same Resident/Fellow: Nikko Frost MD Indications: Low back pain PAIN SELECTIVE NERVE ROOT BLOCK, LUMBAR/SACRAL TRANSFORAMINAL EPIDURAL STEROID INJECTION on Left L4/5 and Left L3/4 No IV was started for this procedure. The patient was taken to the fluoroscopy suite and placed in a prone position on the fluoroscopy table with a pillow under the abdomen to reduce the lumbar lordosis. The patient was monitored using electrocardiogram, noninvasive blood pressure and pulse oximeter. The skin over the lumbar spine was sterilely prepped with Chloraprep and draped. The fluoroscope was brought into the field and a PA image was obtained to identify the L4 vertebralbody. The anterior and posterior aspects of the superior endplate of the vertebral body were superimposed upon one another. The fluoroscope was then rotated in an oblique angle toward the left side such that the superior articulating process was positioned midway between the anterior and posterior aspects of the vertebral body superior endplate. A point on the skin overlying the proposed site of needle entry just inferolateral to the pedicle was marked. The skin and subcutaneous tissues overlying the proposed needle entry site at the level of L4 on the left were anesthetized with 1 cc of 2% li docaine. A 25 gauge, 3.5 inch spinal needle was placed through the skin and advanced coaxially. Needle depth was periodically evaluated using lateral fluoroscopic imaging. Correct final needle position was confirmed with AP and lateral fluoroscopic imaging. 0.5 cc of non-ionic contrast dye was injected under live fluoroscopic imaging to confirm appropriate spread of contrast and to rule out intravascular or intrathecal spread. 5mg of dexamethasone with 0.5c 0.5% bupivacaine was injected following negative aspiration for heme, CSF and air. After completion of the injection, the needle was flushed with 1 cc of 1% lidocaine and removed The procedure was then repeated for the Left L3/4 foramen. Pre-procedure pain score: 7/10 Post-procedure pain score: 1 Photographs: uploaded to [employer] Complications: The patient did not experience any complications. Teaching Statement: Chris Andrade MD was present for the entire procedure I was present for the entire procedure. Chris Sanchez MD [facility] Clinical Environmental Services Assistant Department of Anesthesia, Division of Chronic Pain Management Pager [phone] documented in this encounter Plan of Treatment Not on file documented as of this encounter Procedures Procedure Name Priority Date/Time Associated Diagnosis Comments PAIN SELECTIVE NERVE ROOT BLOCK, OR TRANSFORAMINAL EPIDURAL STEROID INJ, LUMBAR/SACRAL W FLUORO Routine 02/15/2018 9:03 AM CDT Lumbar radicular pain documented in this encounter Results * PAIN SELECTIVE NERVE ROOT BLOCK, OR TRANSFORAMINAL EPIDURAL STEROID INJ, LUMBAR/SACRAL W FLUORO (02/15/2018 9:03 AM CDT) Narrative Chris Sanchez MD - 02/15/2018 9:00 AM CDT Chris Sanchez MD ? 02/18/2018 ??7:42 AM PAIN SELECTIVE NERVE ROOT BLOCK, LUMBAR/SACRAL W FLUORO [facility] Edited Resul t - Final documented in this encounter Visit Diagnoses Diagnosis Osteoarthritis of spine with radiculopathy, lumbosacral region- Primary Lumbar radicular pain Thoracic or lumbosacral neuritis or radiculitis, unspecified Other chronic pain documented in this encounter Administered Medications Inactive Administered Medications - up to 3 most recent administrations Medication Order MAR Action Action Date Dose Rate Site bupivacaine (pf) 0.25% (MARCAINE) injection 1-20 mL 1-20 mL, Injection, As Needed, Other, As directed per LIP during procedure, Starting on Wed02/15/18 at 08, Procedure - Intra-procedural Clinician/Reported given by another 02/15/2018 9:01 AM CDT 1.5 mL dexamethasone (pf) (DECADRON) 10 mg/mL injection 4-20 mg 4-20 mg, Injection, As Needed, Other, As directed per LIP during procedure, Starting on Wed02/15/18 at 08, Procedure - Intra-procedural Clinician/Reported given by another 02/15/2018 9:01 AM CDT 10 mg iohexol (OMNIPAQUE 300) injection 1-5 mL 1-5 mL, Injection, As Needed, Other, As directed per LIP during procedure, Starting on Wed02/15/18 at 08, Procedure - Intra-procedural Clinician/Reported given by another 02/15/2018 9:01 AM CDT 0.5 mL documented in this encounter Additional Health Concerns Assessment Noted Time PHQ-9 Depression Total Score: 14 018 12:18 PM COMPUTER ARCHITECT PHQ-2 Depression Total Score: 5 01/07/20 18 12:18 PM COMPUTER ARCHITECT documented as of this encounter Care Teams Medical Imaging Technician Relationship Specialty Start Date End Date Coco Leos PA-C [address] [place] [address] PCP - General Physician Geriatric Aide 02/17/17 12/15/22 documented as of this encounter
--- OUTSIDE RECORDS SUMMARY | 2024-11-23 00:13 | XMS_ITS | Encounter Summary ---
Author Organization [facility] Care Address [address] [place] [address] Phone Care Team Providers Care Petroleum Supply Specialist Name Role Phone Coco Leos PA-C Primary Care Provider [phone] Provider, No-Primary Care Primary Care Provider Unavailable Encounter Details Date Type Department Care Team (Late st Contact Info) Description 04/09/2018 Pharmacy Visit RX [facility] [address] [place] [phone] Social History Tobacco Use Types Packs/Day [...] Depression Total Score: 14 018 12:18 PM BOAT MECHANIC PHQ-2 Depression Total Score: 5 01/07/20 18 12:18 PM BOAT MECHANIC documented as of this encounter Care Teams Petroleum Supply Specialist Relationship Specialty Start Date End Date Coco Leos PA-C [address] [place], [place] [phone] PCP - General Physician Circuit Recorder 02/17/17 12/15/22 Provider, No-Primary Care [place] PCP - General 12/16/22 documented as of this encounter
--- OUTSIDE RECORDS SUMMARY | 2024-11-23 00:13 | XMS_ITS | Encounter Summary ---
Author Organization [facility] Care Address [address] [place] [address] Phone Care Team Providers Care Community Service Coordinator Name Role Phone Coco Leos PA-C Primary Care Provider [phone] Provider, No-Primary Care Primary Care Provider Unavailable Encounter Details Date Type Department Care Team (Late st Contact Info) Description 02/09/2018 Pharmacy Visit RX [facility] [address] [place] [phone] Social History Tobacco Use Types Packs/Day [...] Depression Total Score: 14 018 12:18 PM MEDIA ANALYTICS MANAGER PHQ-2 Depression Total Score: 5 01/07/20 18 12:18 PM MEDIA ANALYTICS MANAGER documented as of this encounter Care Teams Community Service Coordinator Relationship Specialty Start Date End Date Coco Leos PA-C [address] [place], [place] [phone] PCP - General Physician It Project Lead 02/17/17 12/15/22 Provider, No-Primary Care [place] PCP - General 12/16/22 documented as of this encounter
--- OUTSIDE RECORDS SUMMARY | 2024-11-23 00:13 | XMS_ITS | Encounter Summary ---
Author Organization [facility] Care Address [address] [place] [address] Phone Care Team Providers Care Firer Retort Name Role Phone Coco Leos PA-C Primary Care Provider [phone] Reason for Visit * Reason Comments Medication Refill Encounter Details Date Type Department Care Team (Late st Contact Info) Description 01/05/2018 Refill [facility] [address] [facility] [address] [place] [phone] Nikko Han, [facility] [address] [place], [place] [phone] Social History Tobacco Use Types Packs/Day Years [...] * Telephone Encounter - Dayanna Escamilla - 01/05/2018 9:40 AM CST Pharmacy is requesting refill of: Oxycodone, Oxycodone-APAP Will wait to refill until appointment on 01/07/18 not due until 01/10/18 Last visit: 11/16/17 Next visit: 01/07/18 Last written: 12/10/17 Prescription destination: [facility] NKING MACHINE OPERATOR * Telephone Encounter - Nikko Han, [facility] - 01/05/2018 9:29 AM SHRINKING MACHINE OPERATOR [facility] Pain Medication Refill Service - Pharmacist Note Edilberto Hawley is enrolled in the Pain Medication Refill Service and requests renewal of Oyxcodone 15mg CR #60 and oyxcodone/apap 10/325mg #90 for back pain. Level of Analgesia He reports an average pain score after medication of 6 in the last week. Functional Activity Improved abilities: walking, working and sleep Adverse Events Denies over-sedation, confusion, falls and constipation. Aberrant Behavior Last fill 12/10. There are no unexpected entries on the MULTIGRAPHER and refill frequency is every 30 days. Opioid agreement signed 01/12/[address] Leos. Urine Drug Screen: postivie on 07/09/17 as expected Respiratory Depression Risk Score >3; anti-depressant and long acting opioid prescribed, hospital and emergency visit within last 6 months and history of opioid abuse Morphine equivalent dose is 105 mg/day. junior oracle dba is available. Emergency intranasal naloxoneis warranted at this time and is on hand. Prescriptions pended for Dr. Leos, last visit: 11/16; return visit: 01/07. Please send orders to [facility] pharmacy for pick-up. Thank you, Zain Han [facility] NKING MACHINE OPERATOR documented in this encounter Plan of Treatment Not on file documented as of this encounter Visit Diagnoses Diagnosis Other chronic pain documented in this encounter Additional Health Concerns Assessment Noted Time PHQ-9 Depression Total Score: 12 018 12:31 PM SHRINKING MACHINE OPERATOR PHQ-2 Depression Total Score: 5 11/16/19 18 12:31 PM SHRINKING MACHINE OPERATOR documented as of this encounter Care Teams Firer Retort Relationship Specialty Start Date End Date Coco Leos PA-C [address] [place] [id number] PCP - General Physician Oxygen Tank Filler 02/17/17 12/15/22 documented as of this encounter
--- OUTSIDE RECORDS SUMMARY | 2024-11-23 00:13 | XMS_ITS | Encounter Summary ---
Author Organization [facility] Care Address [address] [place] [address] Phone Care Team Providers Care Offal Baler Name Role Phone Coco Leos PA-C Primary Care Provider [phone] Reason for Visit * Reason Comments Other Encounter Details Date Type Department Care Team (Late st Contact Info) Description 02/24/2018 Telephone [facility] [address] [facility] [address] [place] [address] Coco Leos PA-C [address] [place] [address] Social History Tobacco Use Types [...] Telephone Encounter - Maryellen Tristan RN - 02/24/2018 2:21 PM CDT 02/24/2018 1) Pt left [facility]MM asking for phone number to clinic [facility] referred to for his skin? 2) Returned call to pt and left VMM with Derm Scheduling number and appt information for 03-14-18. MJ. Kun RN 02/24/2018, 2:22 PM documented in this encounter Plan of [...] of use: As long as needed Video/Handout: [email or web address] Management - Exercise Pain Management No Coco Leos PA-C Note: Exercise: General Aerobic ?? Duration: 3 to 5 days per week for 20 minutes per day ?? Intensity: Moderate Strengthening: neither Back nor General (for widespread pain) nor Shoulder ?? Intensity: Moderate ?? Duration: 2 to 4 days per week ?? Instructions: See attached documentation for details Video/Handout: [email or web address] documented as of this encounter Visit Diagnoses Not on filedocumented in this encounter Additional Health Concerns Assessment Noted Time PHQ-9 Depression Total Score: 14 018 12:18 PM SALES ENABLEMENT SPECIALIST PHQ-2 Depression Total Score: 5 01/07/20 18 12:18 PM SALES ENABLEMENT SPECIALIST documented as of this encounter Care Teams Offal Baler Relationship Specialty Start Date End Date Coco Leos PA-C [address] [place] [address] PCP - General Physician Counselor [employer] 02/17/17 12/15/22 documented as of this encounter
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
--- OUTSIDE RECORDS SUMMARY | 2024-11-23 00:14 | XMS_ITS | Encounter Summary ---
Author Organization [facility] Address [address] [place] [address] Phone Care Team Providers Care Children'S Service Supervisor Name Role Phone Coco Leos PA-C Primary Care Provider [phone] Reason for Visit * Reason Comments Patient Reported Reason For Visit Patient Reported Reason For Visit Encounter Details Date Type Department Care Team (Latest Contact Info) Description 09/29/2017 1:25 PM TRANSPORTATION MODELER - 09/29/2017 11:59 PM [facility] Hospital Encounter Medical [facility] - Radiology - Musculoskeletal [address] [place] [address] Aranza Bradley MD [address] [place] [address] Discharge Disposition: Home or Self Care Social [...] this encounter Medications at Time of Discharge baclofen 10 mg tabletIndication s:muscle spasticity of spinal origin Take 1 tablet (10 mg total) by mouth at bedtime. 30 tablet 11 06/10/2018 2:04 PM CDT 08/09/2017 cholecalciferol (VITAMIN D3) 2,000 unit capsule Take 2,000 Units by mouth daily. lidocaine 5 % ointmentIndicati ons:Low back pain with radiation, right Apply topically 2 times daily as needed. 35.44 g 11 01/12/2017 5:22 PM TRANSPORTATION MODELER 01/12/2017 omeprazole 20 mg enteric coated capsule Take 20 mg by mouth daily. sennosides (SENEXON) 8.6 mg tablet Take 1 tablet by mouth 2 times daily as needed. amitriptyline 75 mg tablet Take 1 tablet (75 mg total) by mouth at bedtime. 30 tablet 11 09/08/2017 2:35 PM CDT 04/09/2017 8 DULoxetine 30 mg XR capsuleIndicatio ns:Other chronic pain Take 1 capsule (30 mg total) by mouth daily. 30 capsule 11 10/11/2017 12:12 PM TRANSPORTATION MODELER 09/22/2017 7 gabapentin 100 mg capsuleIndicatio ns:neuropathic pain Take 2 capsules (200 mg total) by mouth at bedtime. 60 capsule 11 10/11/2017 12:12 PM TRANSPORTATION MODELER 08/09/2017 7 naloxone 1 mg/mL injection syringe (2 mL)Indications:O [...] mouth 2 times daily. Earliest Fill Date: 09/08/17 60 tablet 09/08/2017 2:35 PM CDT 09/08/2017 7 oxyCODONE-acetam inophen 10-325 mg per tabletIndication s:Other chronic pain Take 1 tablet by mouth every 4 hours as needed for Pain. Earliest Fill Date: 09/08/17 120 tablet 09/08/2017 2:35 PM CDT 09/08/2017 7 propranolol 80 mg XR capsuleIndicatio ns:Increased frequency of headaches,Post concussive syndrome Take 1 capsule (80 mg total) by mouth daily. 30 capsule 2 10/11/2017 12:12 PM TRANSPORTATION MODELER 08/09/2017 7 documented as of this encounter Plan of Treatment Not on file documented as of this encounter Procedures Procedure Name Priority Date/Time Associated Diagnosis Comments L SPINE AP & LATERAL STANDING Routine 09/29/2017 1:54 PM TRANSPORTATION MODELER Low back pain documented in this encounter Results * L SPINE AP & LATERAL STANDING (09/29/2017 1:54 PM TRANSPORTATION MODELER) Anatomical Region Laterality Modality Spine RAD MSK modality Impressions 09/29/2017 2:45 PM TRANSPORTATION MODELER Findings / Impression: There are 5 lumbar type vertebrae. L1-L3 right transverse process fractures reported on prior CT not clearly visualized. L3 compression deformity appear grossly stable since the prior. Multilevel facet hypertrophy, moderate to severe at L3-L4, L4/L5, and L5-S1, grossly stable. Narrative 09/29/2017 2:45 PM TRANSPORTATION MODELER Procedure: L SPINE AP & LATERAL STANDING Clinical Indication: Low back pain, fracture follow-up Comparison: 07/21/2017 CT of the lumbar spine dated April 16, 2017 Procedure Note Karen Cruz MD - 09/29/2017 Procedure: L SPINE AP & LATERAL STANDING Clinical Indication: Low back pain, fracture follow-up Comparison: 07/21/2017 CT of the lumbar spine dated April 16, 2017 IMPRESSION Findings / Impression: There are 5 lumbar type vertebrae. L1-L3 right transverse process fractures reported on prior CT not clearly visualized. L3 compression deformity appear grossly stable since the prior. Multilevel facet hypertrophy, moderate to severe at L3-L4, L4/L5, and L5-S1, grossly stable. us Floyd [place] MD RAD GEN ORDERABLES Final Resul t documented in this encounter Visit Diagnoses Not on filedocumented in this encounter Additional Health Concerns Assessment Noted Time PHQ-2 Depression Total Score: 0 08/09/20 9:37 AM CDT documented as of this encounter Care Teams Children'S Service Supervisor Relationship Specialty Start Date End Date Coco Leos PA-C [address] [place], [place] [phone] PCP - General Physician Rip Tailer 02/17/17 12/15/22 documented as of this encounter
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
--- OUTSIDE RECORDS SUMMARY | 2024-11-23 00:14 | XMS_ITS | Encounter Summary ---
Author Organization [facility] Address [address] [place] [address] Phone Care Team Providers Care Human Resources Safety Manager Name Role Phone Coco Leos PA-C Primary Care Provider [phone] Provider, No-Primary Care Primary Care Provider Unavailable Encounter Details Date Type Department Care Team (Late st Contact Info) Description 12/06/[address] [facility] [address] [place] [phone] Social History Tobacco Use Types Packs/Day [...] Depression Total Score: 12 018 12:31 PM PAYROLL MACHINE OPERATOR PHQ-2 Depression Total Score: 5 11/16/19 18 12:31 PM PAYROLL MACHINE OPERATOR documented as of this encounter Care Teams Human Resources Safety Manager Relationship Specialty Start Date End Date Coco Leos PA-C [address] [place], [place] [phone] PCP - General Physician Starchmaker 02/17/17 12/15/22 Provider, No-Primary Care [place] PCP - General 12/16/22 documented as of this encounter
--- OUTSIDE RECORDS SUMMARY | 2024-11-23 00:14 | XMS_ITS | Encounter Summary ---
Author Organization [facility] Care Address [address] [place] [address] Phone Care Team Providers Care Customer Business Manager Name Role Phone Coco Leos PA-C Primary Care Provider [phone] Provider, No-Primary Care Primary Care Provider Unavailable Encounter Details Date Type Department Care Team (Late st Contact Info) Description 10/08/2017 Pharmacy Visit RX [facility] [address] [place] [phone] Social History Tobacco Use Types Packs/Day [...] Time PHQ-2 Depression Total Score: 0 08/09/20 17 9:37 AM CDT documented as of this encounter Care Teams Customer Business Manager Relationship Specialty Start Date End Date Coco Leos PA-C [address] [place], [place] [phone] PCP - General Physician Respiratory Therapy Instructor 02/17/17 12/15/22 Provider, No-Primary Care [place] PCP - General 12/16/22 documented as of this encounter
--- OUTSIDE RECORDS SUMMARY | 2024-11-23 00:14 | XMS_ITS | Encounter Summary ---
Author Organization [facility] Address [address] [place] [address] Phone Care Team Providers Care Roof Bolting Coal Miner Name Role Phone Coco Leos PA-C Primary Care Provider [phone] Provider, No-Primary Care Primary Care Provider Unavailable Encounter Details Date Type Department Care Team (Late st Contact Info) Description 12/30/2017 Pharmacy Visit RX [facility] [address] [place] [phone] Social History Tobacco Use Types Packs/Day [...] Depression Total Score: 12 018 12:31 PM HOME ENERGY INSPECTOR PHQ-2 Depression Total Score: 5 11/16/19 18 12:31 PM HOME ENERGY INSPECTOR documented as of this encounter Care Teams Roof Bolting Coal Miner Relationship Specialty Start Date End Date Coco Leos PA-C [address] [place], [place] [phone] PCP - General Physician Hydraulic Operator 02/17/17 12/15/22 Provider, No-Primary Care [place] PCP - General 12/16/22 documented as of this encounter
--- OUTSIDE RECORDS SUMMARY | 2024-11-23 00:14 | XMS_ITS | Encounter Summary ---
Author Organization [facility] Care Address [address] [place] [address] Phone Care Team Providers Care Pickers Material Handlers Name Role Phone Coco Leos PA-C Primary Care Provider [phone] Provider, No-Primary Care Primary Care Provider Unavailable Encounter Details Date Type Department Care Team (Late st Contact Info) Description 11/04/2017 Pharmacy Visit RX [facility] [address] [place] [phone] Social History Tobacco Use Types Packs/Day [...] Total Score: 0 10/20/20 17 9:51 AM APPAREL PATTERNMAKER documented as of this encounter Care Teams Pickers Material Handlers Relationship Specialty Start Date End Date Coco Leos PA-C [address] [place], [place] [phone] PCP - General Physician Supervisor Garage 02/17/17 12/15/22 Provider, No-Primary Care [place] PCP - General 12/16/22 documented as of this encounter
--- OUTSIDE RECORDS SUMMARY | 2024-11-23 00:14 | XMS_ITS | Encounter Summary ---
Author Organization [facility] Care Address [address] [place] [address] Phone Care Team Providers Care Production Broacher Name Role Phone Coco Leos PA-C Primary Care Provider [phone] Provider, No-Primary Care Primary Care Provider Unavailable Encounter Details Date Type Department Care Team (Late st Contact Info) Description 10/11/2017 Pharmacy Visit RX [facility] [address] [place] [phone] Social History Tobacco Use Types Packs/Day [...] documented as of this encounter Care Teams Production Broacher Relationship Specialty Start Date End Date Coco Leos PA-C [address] [place], [place] [phone] PCP - General Physician Clerk Cashier 02/17/17 12/15/22 Provider, No-Primary Care [place] PCP - General 12/16/22 documented as of this encounter
--- OUTSIDE RECORDS SUMMARY | 2024-11-23 00:14 | XMS_ITS | Encounter Summary ---
Author Organization [facility] Care Address [address] [place] [address] Phone Care Team Providers Care Dismantler Name Role Phone Coco Leos PA-C Primary Care Provider [phone] Reason for Referral * Radiology Services (Routine) - Closed Specialty Diagnoses / Procedures Referred By Contac t Referred To Contact Radiology Diagnoses Lumbar radicular pain Trauma Procedures MRI SPINE LUMBAR WO CONTRAST ([id number]) Chris Dougherty [address] [phone] Phone: tel: [facility] - Radiology - MRI [address] [place] [phone] Phone: tel: fax: Referral ID Status Reason Start Date Expiration Date Visits Re quested Visits Authorized [id number] Closed 12/28/2017 1 1 [employer]AUR[employer] Reason for Visit * Reason Comments Patient Reported Reason For Visit 2nd Op inion - CPS - NWP * Internal Referral (D. Within 4 weeks) - Closed Specialty Diagnoses / Procedures Referred By Contac t Referred To Contact Anesthesiology Diagnoses Other chronic pain Coco Leos PA-C [address] [place] [address] Phone: tel: fax: [facility] - Anesthesia - Chronic Pain [address] [place] [address] Phone: tel: fax: Referral ID Status Reason Start Date Expiration Date Visits Re quested Visits Authorized [id number] Closed 11/16/2017 1 1 Encounter Details Date Type Department Care Team (Late st Contact Info) Description 12/28/2017 9:20 AM DIRECTOR OF RESTAURANT Office Visit [facility] - Anesthesia - Chronic Pain [address] [place] [address] Chris Sanchez MD [address] [place] [address] Social History Tobacco Use Types Packs/Day Years [...] Taken Comments Blood Pressure - - Pulse 88 12/28/2017 9:27 AM DIRECTOR OF RESTAURANT Temperature 36.9 ??C (98.4 ??F) 12/28/2017 9:27 AM CS T Respiratory Rate - - Oxygen Saturation 97% 12/28/2017 9:27 AM DIRECTOR OF RESTAURANT Inhaled Oxygen Concentration - - Weight 91 kg (200 lb 9.9 oz) 12/28/2017 9:27 AM DIRECTOR OF RESTAURANT Height 180.3 cm (5' 10.98 ) 12/28/2017 9:[address] Body Mass Index 27.99 12/28/2017 9:27 AM DIRECTOR OF RESTAURANT documented in this encounter Patient Instructions * Discharge Instructions* Chris Dougherty MD - 12/28/2017 10:08 AM DIRECTOR OF RESTAURANT The following treatment recommendations were discussed in detail with Mr. Edilberto Hawley. Imaging: I have reviewed Mr. Edilberto Hawley's imaging and results were discussed with him today. In light of presence of new symptoms in left lower extremity and associated weakness, pain, and transverse fractures on previous imaging, patient is advised to get MRI imaging of his lumbar spine to delineate spinal etiology. Prescription provided. Analgesics: Patient is managing his pain currently with use of oxycontin and oxyIR. He is instructed to continue as directed by prescribing MD. Patient is advised to continue current opioids but avoid escalatingdoses. Patient is advised to contact prescribing MD for future prescriptions. If opioid [...] component, the patient is advised tocontinue baclofen. Interventions: No intervention was discussed during this visit. We will determine which intervention to proceed with after his MRI is performed. Multidisciplinary Pain Management: In the presence of complex, chronic, and multi-factorial pain, the importance of a multidisciplinary approach to pain management in the patient???s management regimen was emphasized and discussed in great detail. The patient was advised to see a physical therapist for gentle stretching exercises and conditioning exercises for management of pain. The patient was also advised to continue physical therapy and stretching exercises at home. Referrals Provided: Physical therapy for left shoulder injury Prescriptions Written This Visit: No prescription provided by the pain clinic. Work Status: Patient should resume same work status with unchanged restrictions after today's visitas prescibed by patient's prior provider on prior visits with them. Follow-up: We will call once MRI results are available. [employer] documented in this encounter Progress Notes * Chris Sanchez MD - 12/28/2017 9:20 AM CST Chronic Pain (Clinic/Consult Note) Encounter Date: 12/28/2017 Subjective: Chief Complaint: Back and lower extremity pain Clinical Question to be answered: ?? He has PMH of chronic pain. He has had success with previous epidural injections performed in [place]. PMH of chronic pain, back, shoulders, hands, wrists. He is on chronic narcotic regimen as previously prescribed by his PCP in [place], but recently transferred care here as he is living in [place], [place] now for work.. He is also on non-narcotic neuropathic meds buthas side effects of sedation, so dosing is limited. He was on disability for a long time, but went back to work in February 2016. He is currently [place] [employer] [place] and had an [place] with lumbar fracture. He has has had increase in pain since then. CT done showed no acute changes other than the fracture. MRI has not been repeated since accident. MRI completed here 01/22/17 with abnormalities. Pt is having RLE radicular pain. He had recent EMG which showed polyneuropathy, not new. Normal labwork-up, history of ETOH abuse, none currently. Pt is interested in L-spine epidural if appropriate as he previously had good success with this. Please evaluate and treat. History of Present Illness: Mr. Edilberto Hawley is a 62 y.o. male seen in the Pain Clinic initially on 12/28/2017 upon request from MICHELA Leos for his history of back and lower extremity pain. He has been experiencing chronic back and extremity pain for years, for which he takes neuropathic medications and is on an opioid contract with his primary care provider. However, his primary concerns at this time are left shoulder and left lower extremity pain that has been present since involvement in a work-related injury in April 2017. His lower extremity pain was the focus of today's conversa tion, as it seems his left shoulder pain is secondary to a previously diagnosed rotator cuff injury. He experiences burning pain in his left lower extremity that originates in the low back/buttock that extends into the anteromedial thigh and occasionally travels down into the medial aspect of the ankle. He also describes weakness in this lower extremity, which has altered his gait. His most recent MRI was performed on 01/22/2017, which revealed multilevel degenerative changes, worst at the L5-J0rlcva with moderate to severe right neural foraminal stenosis, along with facet hypertrophy and broad-based disc bulge causing mild spinal stenosis at the L4-L5 level. He was experiencing right lowerextremity pain and L5/S1 distribution at the time; this pain has since resolved. He has not had a lumbar MRI since his injury in April 2017. A lumbar CT performed on 05/13/2017 revealed nondisplaced transverse fractures on the right L1-L3 (and potentially at L4), along with bilateral moderate neuroforaminal narrowing at L2-L3, and severe neural foraminal narrowing at the right L5-S1. He has continue d to perform physical therapy exercises for the left lower extremity pain and weakness for months since the injury without improvement. He has not undergone any interventions since the injury. His current analgesia regimen consists of amitriptyline 37.5 milligrams daily, baclofen 10 mg daily, duloxetine 60 mg daily, OxyContin 15 mg twice a day, oxycodone-acetaminophen 10-325 3 times a day as needed, and topical lidocaine and capsaicin. Patient Pain Questionnaire: PAIN CLINIC EVALUATION 12/28/2017 Briefly describe your pain: 8 When did pain start?: unknow What event/s led to present pain?: Accident at work Pain Clinic expectation: Other Receiving compensation/disability payments?: No Contacted home maker regarding pain?: Yes Pain pattern: Always present How often does pain occur?: Several times a day How long does pain last?: Days Pain usually worse during certain times of day?: No relation What best describes characteristic(s) of your pain?: Shooting, Stabbing, Cramping, Splitting Current pain intensity: 8 Best pain score in past month: 8 Worst pain score in past month: 6 Average daily pain score: 7 Pain gets WORSE with the following: Walking, Standing, Sitting, Lifting, Bending, Cough/sneeze, Weather change Pain gets BETTER with the following: Lying, Rest, Medicine There is NO change in pain with any of the following: Walking, Standing, Sitting, Lifting, Bending Pain interferes with going to work: Extremely Pain interferes with performing reference test clerk: Extremely Pain interferes with yard work or shopping: Quite a bit Pain interferes with recreation/hobbies: Extremely Pain interferes with sexual relationships: Quite a bit Pain interferes with physical exercises: Quite a bit Pain interferes with sleep: Moderately Pain interferes with appetite: Moderately Current Complaints of Pain: Location: Left low back Radiation: Left lower extremity down to the medial aspect of left ankle Severity: 8/10 Character/Quality: Complains of pain that is burning. Timing: continuous Associated symptoms: Left lower extremity weakness. Exacerbating [...] in April 2017 Current Treatment Medications: amitriptyline 37.5 milligrams daily, baclofen 10 mg daily duloxetine 60 mg daily OxyContin 15 mg twice a day oxycodone-acetaminophen 10-325 3 times a day as needed topical lidocaine and capsaicin. Patient's current pain medications as stated in medication list are providing some benefit. Medication side effects: No Historical Treatment Medications: Gabapentin - sedation Active Problem List Diagnosis Code ??? Health care maintenance Z00.00 ??? Chronic pain G89.29 ??? History of left hip replacement Z96.642 ??? History of repair of left rotator cuff Z98.890 ??? Encounter related to worker's compensation claim 04/16/2017 Back Z02.6 ??? 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 [...] Take 2,000 Units by mouth daily. ??? DULoxetine 60 mg XR capsule Take 1 capsule (60 mg total) by mouth daily. 30 capsule 11 ??? lidocaine 5 % ointment [...] mouth 2 times daily. Earliest Fill Date: 12/10/17 60 tablet 0 ??? oxyCODONE-acetaminophen 10-325 mg per tablet Take 1 tablet by mouth every 4 hours as needed forPain. Max 3/day. Earliest Fill Date: 12/10/17 90 tablet 0 ??? sennosides (SENEXON) 8.6 [...] History Narrative Mr. 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 Constitutional: Normal appearance, grooming and nutrition. HEENT: Normocephalic, Normal eyes, ear on inspection. Neck: Normal inspection. Supple. Respiration: Normal respiratory effort Cardiovascular: Normal rate and rhythm Chest: Symmetrical Musculoskeletal: Gait is antalgic, favoring right side Motor: 4+/5 strength in left lower extremity upon hip and knee flexion/extension with 5/5 strength in plantar/dorsiflexion, otherwise 5/5 muscle strength throughout. Sensory: Decreased sensation to light touch in medial aspect of left lower extremity. No Allodynia. Cervical Spine: Normal range of motion. Upper Extremities: Severely reduced range of motion and left upper extremity at level of shoulder. Reduced muscle bulk and left shoulder in comparison to right shoulder. Lumbar Spine: SLR positive on left. JAIRO normal. Lumbar paraspinal non-tender. Reduced lumbar range of motion. Lower Extremities: Normal range of motion. Normal muscle bulk and tone. Skin: Normal, no rashes. Neurological: Cranial nerves intact. Reflexes 2+ in knee, biceps and triceps. Psychological: Alert, awake and oriented X 3. Normal insight. Assessment: Encounter Diagnoses ICD-10-CM ICD-9-CM 1. Lumbar radicular pain M54.16 724.4 2. Weakness of left lower extremity R29.898 729.89 3. Trauma T14.90XA 959.9 4. Injury of left rotator cuff, initial encounter S46.002A 959.2 5. Other chronic pain G89.29 338.29 Patient is a 62-year-old gentleman who presents with new onset left lower extremity pain, most consistent in an L4 distribution, that started after a work-related injury in April 2017. He has undergone CT imaging since this injury that revealed lumbar transverse process fractures. His most recent lumbar MRI was performed in January 2017, and it would be appropriate to obtain a new lumbar MRI to evaluate spinal cord and nerve roots prior to interventional therapy. Regarding his left shoulder injury, we have advised the patient to undergo formal physical therapy for the shoulder. Plan: The following treatment recommendations were discussed in detail with Mr. Edilberto Hawley. Imaging: I have reviewed Mr. Edilberto Hawley's imaging and results were discussed with him today. In light of presence of new symptoms in left lower extremity and associated weakness, pain, and transverse fractures on previous imaging, patient is advised to get MRI imaging of his lumbar spine to delineate spinal etiology. Prescription provided. Analgesics: Patient is managing his pain currently with use of oxycontin and oxyIR. He is instructed to continue as directed by prescribing MD. Patient is advised to continue current opioids but avoid escalatingdoses. Patient is advised to contact prescribing MD for future prescriptions. If opioid [...] component, the patient is advised tocontinue baclofen. Interventions: No intervention was discussed during this visit. We will determine which intervention to proceed with after his MRI is performed. Multidisciplinary Pain Management: In the presence of complex, chronic, and multi-factorial pain, the importance of a multidisciplinary approach to pain management in the patient???s management regimen was emphasized and discussed in great detail. The patient was advised to see a physical therapist for gentle stretching exercises and conditioning exercises for management of pain. The patient was also advised to continue physical therapy and stretching exercises at home. Referrals Provided: ?? Physical therapy for left shoulder injury Prescriptions Written This Visit: No prescription provided by the pain clinic. Work Status: Patient should resume same work status with unchanged restrictions after today's visitas prescibed by patient's prior provider on prior visits with them. Follow-up: We will call once MRI results are available. Staff Physician Comments: Staff Involved: Staff and Resident/Fellow Chris Dougherty MD TEACHING: I performed a history and physical examination of the patient and discussed his management with theresident/fellow. I reviewed the resident???s/fellow's note and agree with the documented findings and plan of care Chris Sanchez MD Clinical Production Planning Supervisor Department of Anesthesia, Division of Chronic Pain Management Pager [phone] [employer] documented in this encounter Plan of Treatment Not on file documented as of this encounter Results * MRI SPINE LUMBAR WO CONTRAST ([id number]) (01/11/2018 6:31 PM DIRECTOR OF RESTAURANT) Anatomical Region Laterality Modality Spine Magnetic Resonan ce Impressions 01/12/2018 9:24 AM DIRECTOR OF RESTAURANT Impression: 1. New from the prior exam is a right posterior paracentral disc extrusion at L3-4 which extends inferiorly behind the L4 vertebral body and moderately to severely narrows the right lateral recess. 2. Severe neural foraminal narrowing on the left at L3-4 and on the right at L5-S1, similar to prior. Narrative 01/12/2018 9:24 AM DIRECTOR OF RESTAURANT Procedure: MRI SPINE LUMBAR WO CONTRAST ([id number]) Indication: ] Back pain, left lower extremity [...] 01/12/2018 Procedure: MRI SPINE LUMBAR WO CONTRAST ([id number]) Indication: ] Back pain, left lower extremity [...] right at L5-S1, similar to prior. [facility] Final Result documented in this encounter Visit Diagnoses Diagnosis Lumbar radicular pain- Primary Thoracic or lumbosacral neuritis or radiculitis, unspecified Weakness of left lower extremity Trauma Injury, other and unspecified, unspecified site Injury of left rotator cuff, initial encounter Other chronic pain Lumbar radicular pain Thoracic or lumbosacral neuritis or radiculitis, unspecified Trauma Injury, other and unspecified, unspecified site documented in this encounter Additional Health Concerns Assessment Noted Time PHQ-9 Depression Total Score: 12 018 12:31 PM DIRECTOR OF RESTAURANT PHQ-2 Depression Total Score: 5 11/16/19 18 12:31 PM DIRECTOR OF RESTAURANT documented as of this encounter Care Teams Dismantler Relationship Specialty Start Date End Date Coco Leos PA-C [address] [place] [phone] PCP - General Physician Haulage Boss 02/17/17 12/15/22 documented as of this encounter
--- OUTSIDE RECORDS SUMMARY | 2024-11-23 00:14 | XMS_ITS | Encounter Summary ---
Author Organization [facility] Care Address [address] [place] [address] Phone Care Team Providers Care Supervisor Ticket Sales Name Role Phone Coco Leos PA-C Primary Care Provider [phone] Reason for Visit * Reason Comments Patient Reported Reason For Visit [facility] REFERRAL FOR ACUTE PAIN ON CHRONIC BACK PAIN AND HEAQDACHES * Internal Referral (Routine) - Closed Specialty Diagnoses / Procedures Referred By Contac t Referred To Contact Orthopaedic Diagnoses History of concussion Low back pain, unspecified back pain laterality, unspecified chronicity, with sciatica presence unspecified Estevan Johnson MD [address] [place] [address] Phone: tel: fax: [facility] Orthopedics - Spine [address] [place] [address] Phone: tel: fax: Referral ID Status Reason Start Date Expiration Date Visits Re quested Visits Authorized [id number] Closed 09/24/2017 1 1 Encounter Details Date Type Department Care Team (Late st Contact Info) Description 10/12/2017 3:00 PM ELECTRICAL CAD TECHNICIAN Office Visit [facility] Orthopedics - Physical Medicine and Rehab [address] [place] [phone] Coco Barth, PhD [address] [place] [address] Social History Tobacco Use Types Packs/Day Years [...] as of this encounter Progress Notes * Coco Barth, PhD - 10/12/2017 3:00 PM CST Date of Encounter: 10/12/2017 Session Time In: 4:00 Session Time Out: 5:30 Mr. Hawley was delayed in Orthopedic sausage wrapper, not being directed back to our clinic. Despite running an hour late, he was still able to be seen today. Endorsed answers for HPI/ROS Primary Concern and History of Present Problem: Edilberto Hawley is a 62 y.o. man who has been referred by Dr. Estevan Johnson for a consultation for psychological evaluation and potential treatment of headache and orthopedic pain.??History is obtained from patient and chart review. At the beginning of the session Mr. Hawley was informed about limits to confidentiality. He was told that any information he shared during the session may be included in his medical record. He was told that worker's compensation would have access to the information gathered as part of his evaluation today and for any future treatment provided by staff for his work related injury. He reported he has a roller die cutting machine operator who is assisting him with his worker's compensation claim. He said he hired an corporate associate attorney because of conflict with worker's compensation. They make me feel it was my fault.They make me mad. I honestly don't think I'm going to be able to work anymore... Pain Assessment: Using a 10 point scale (0=no pain, 10=worst possible pain) to describe his pain, Edilberto Hawley reported the following pain experience: Left Back Pain: Best in the AM, once I start moving it builds up Worst pain:10/10 Least pain: 5/10 Typical pain: 6-7/10 ?? Left Leg Pain: Best in the AM, pain increases with movement Worst pain:10/10 Least pain: 5/10 Typical pain: 6-7/10 Left Shoulder Pain: I can't put my hands over my head Worst pain:7/10 Least pain: 4/10 Typical pain: 4/10 Left Arm Pain: A dull ache. It goes to sleep a lot, stinging real bad. I baby it big time. Worst pain:7/10 Least pain: 3/10 Typical pain: 3/10 Headache Pain: Worst pain:10/10 Least pain: 2-3/10 Typical pain: 2-3/10 with medication He stated that he feels distressed about the ringing in his ears since his accident. He noted, Theyrang before but they ring louder now. He stated that he has been told to get hearing aids, but does not think this will help. Behavioral Observations: Appearance: Casually groomed and neatly dressed Psychomotor: Within normal limits Attention Span:Normal Behavior: Some pain behaviors. Sat with leg stretched out and body at an angle. Speech: Normal. Lacks teeth and did not present with dentures, but was able to speak well. Language: Normal Mood:Agitated and animated Affect: Mood congruent Thought Process: Ruminative Thought Content: Stable, non-threatening to self or others Orientation: Good Insight: Limited Shared easily about things that were important to him (i.e.. how he feels he is being treated by worker's compensation and information about his dogs) but was a poor historian for medical history or other personal history. Some confusion and difficulty following basic cognitive behavioral principles presented today. Education/Work History: High School graduate or GED: No. Completed 7th grade College: No. Reported he was on disability beginning in 1989 for another work related accident, though was uncertain of the details. 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 Is currently working at [employer] as part of his worker's compensation assignment. He reported that he began this job 3 weeks ago, and is scheduled to work 40 hours per week, from 7 AM to 3PM, M-F. He stated that pain affects his ability to work, and that by noon my back is really, really hurting. He stated that despite pain, he completes his work day, but stated that co-workers often have to help him to his truck, where he will try to relax a little bit. Crying helps. I try to get the frustration out. He stated that his heated vehicle seats also help with pain after work. He stated that he commutes an hour to/from work, and by the time he gets home he has experienced some pain relief. Psychology History: Marital status: for 45 years, but off an on during that time. He and his are currently . Children: 3 grown boys. Living situation: Lives with his sister. One of his brothers (Fritz) also lives there. Support system includes: His 3 dogs, his oldest son, Jr. Se; his son Michael; his brother Issa/Migel; on and off my is . He spoke with great affection and animation about his dogs. History of psychiatric hospitalizations: Multiple times in drug rehabilitation. No other psychiatric treatment. History of psychotherapy: While in drug rehabilitation. Use of psychotropic medications: Amitriptyline for pain related sleep disturbance. Substance and Drug Use History ?? Tobacco Use Hx: Never ?? Alcohol Use Hx: Yes Comment: Last use in 2002. 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 It took a long time to get sober. ?? 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 Reported he completed treatment several times, but it never worked. Hestated that he eventually used hypnosis, and changed his environment and peer associations to finally quit. 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 Since his injury he reports drinking less than half of that per day. Coffee once per week. Family history of emotional disturbance or substance abuse: No Psychological Assessments Administered on 10/12/2017: QOL and Psychological Measures 10/12/2017 Gilliam Depression Inventory (BDI-II) 24 Pain Catastrophizing Scale (PnCS) Helplessness sub-scale 17 Magnification sub-scale 7 Rumination sub-scale 11 Total (PnCS) 35 Hospital Anxiety and Depression Scale (HADS) Total score: Anxiety 9 Total score: Depression 19 His BDI-II indicated moderate symptoms of depression. His PnCS indicated significant pain catastrophizing and was consistent with scores indicating high risk for developing chronic pain. His HADS Anxiety score indicated symptoms in the borderline range. His HADS Depression score indicated symptoms in the severe range. During the clinical interview he reported that his mood is generally good until about noon when his pain interferes. He stated, Pain makes me irritable. He stated that the only thing he enjoys about his life is his time with his dogs. He denied any other pleasurable activity at this time. He stated he does not enjoy his life as much now as in the past because of his pain and accompanying physical limitations. He indicated that he feels discouraged about the future and is particularly concerned about future employment. He indicated no difficulty with sleep, which he attributes to medication. He stated he is in bed byabout 7 PM and is up for the day at 4 AM. He reported feeling, I've got the energy, but the pain drags me down. He reported feeling bothered that he can be forgetful, but stated, It's probably just old age and being in too much of a hurry... Not paying attention. Mr. Hawley denied any current suicidal ideation or history of suicide attempts. He reported feeling stressed about his interactions with worker's compensation and the way it is impacting his care, Everything is pending approval. He also noted concern about the ringing in his ears, and driving while taking oxycodone. He stated that he was pulled over by highway patrol becauseof his driving today, and attributes this to his use of medication. He is afraid he will get an OWIfor driving on this medication, and stated he does not want to do so, but I have no choice because he has to report to work to comply with worker's compensation. He stated he manages his pain by taking medication, applying heat, laying down, and trying to keepmy left side straight. He stated, I just kind of lay around when he gets home from work in an attempt to find pain relief. Encounter Diagnoses Name Primary? Low back pain, unspecified back pain laterality, unspecified chronicity, with sciatica presenceunspecified Yes ??? Encounter related to worker's compensation claim 04/16/2017 Back Impression/ Summary: I spent 90 minutes in a [id number] session with Edilberto Hawley gathering history of presenting issues and social history. He presented as a pleasant man. During the session I provided some supportive psychotherapy around issues relating to pain and coping. Mr. Hawley was instructed about the relationship between stress and pain. He was taught a simple breathing exercise for stress and pain management that he is to complete every hour. He was given detailed instructions for a focused breathing relaxation exercise and a mindfulness exercise. He was given audio recorded relaxation exercises that he was encouraged to use twice daily and when attempting to sleep. He was given handouts for free web based applications to explore using for meditation, relaxation, pain management and sleep management. He appeared to have some difficulty following the concepts presented today and would likely have some difficulty with psychotherapy and learning to use more complicated psychological concepts for pain management. He is encouraged to use the breathing, relaxation, and meditation tools he was given today. Plan: No planned follow up. Coco Barth, Ph.D. Licensed Psychologist Licensed Health Service Provider TRICAL CAD TECHNICIAN documented in this encounter Miscellaneous Notes * Communication Body - Bessy Colin - 10/12/2017 3:00 PM CST We saw Edilberto Hawley in Orthopaedics at the [facility] on 10/12/17. Enclosed is a copy of our notes. If you have any questions, please call my office. Sincerely, Coco Barth, PhD Clinical Lead Atg Developer Clinical Psychologist [facility] Department of Orthopedics & Rehabilitation Physical Medicine & Rehabilitaion [phone] TRICAL CAD TECHNICIAN documented in this encounter Plan of Treatment Not on file documented as of this encounter Visit Diagnoses Diagnosis Low back pain, unspecified back pain laterality, unspecified chronicity, with sciatica presence unspecified- Primary Encounter related to worker's compensation claim 04/16/2017 Back Other general medical examination for administrative purposes documented in this encounter Additional Health Concerns Assessment Noted Time PHQ-2 Depression Total Score: 0 08/09/20 17 9:37 AM CDT documented as of this encounter Care Teams Supervisor Ticket Sales Relationship Specialty Start Date End Date Coco Leos PA-C [address] [place] [id number] PCP - General Physician Commercial Loan Reviewer 02/17/17 12/15/22 documented as of this encounter
--- OUTSIDE RECORDS SUMMARY | 2024-11-23 00:14 | XMS_ITS | Encounter Summary ---
Author Organization [facility] Care Address [address] [place] [address] Phone Care Team Providers Care Sponge Hooker Name Role Phone Coco Leos PA-C Primary Care Provider [phone] Provider, No-Primary Care Primary Care Provider Unavailable Encounter Details Date Type Department Care Team (Late st Contact Info) Description 10/06/2017 Pharmacy Visit [facility] [address] [place] [phone] Social History Tobacco Use Types Packs/Day [...] documented as of this encounter Care Teams Sponge Hooker Relationship Specialty Start Date End Date Coco Leos PA-C [address] [place], [place] [phone] PCP - General Physician Youth Services Librarian 02/17/17 12/15/22 Provider, No-Primary Care [place] PCP - General 12/16/22 documented as of this encounter
--- OUTSIDE RECORDS SUMMARY | 2024-11-23 00:14 | XMS_ITS | Encounter Summary ---
Author Organization [facility] Care Address [address] [place] [address] Phone Care Team Providers Care Lead Carpenter Name Role Phone Coco Leos PA-C Primary Care Provider [phone] Provider, No-Primary Care Primary Care Provider Unavailable Encounter Details Date Type Department Care Team (Late st Contact Info) Description 11/10/[address] [facility] [address] [place] [phone] Social History Tobacco Use Types Packs/Day [...] Total Score: 0 10/20/20 17 9:51 AM POTATO PICKER documented as of this encounter Care Teams Lead Carpenter Relationship Specialty Start Date End Date Coco Leos PA-C [address] [place], [place] [phone] PCP - General Physician De Icer Finisher 02/17/17 12/15/22 Provider, No-Primary Care [place] PCP - General 12/16/22 documented as of this encounter
--- OUTSIDE RECORDS SUMMARY | 2024-11-23 00:14 | XMS_ITS | Encounter Summary ---
Author Organization [facility] Care Address [address] [place] [address] Phone Care Team Providers Care Catalyst Operator Chief Name Role Phone Coco Leos PA-C Primary Care Provider [phone] Provider, No-Primary Care Primary Care Provider Unavailable Encounter Details Date Type Department Care Team (Late st Contact Info) Description 10/25/2017 Pharmacy Visit RX [facility] [address] [place] [phone] Social History Tobacco Use Types Packs/Day [...] Total Score: 0 10/20/20 17 9:51 AM ADVERTISING STATISTICAL CLERK documented as of this encounter Care Teams Catalyst Operator Chief Relationship Specialty Start Date End Date Coco Leos PA-C [address] [place], [place] [phone] PCP - General Physician Cash Surrender Calculator 02/17/17 12/15/22 Provider, No-Primary Care [place] PCP - General 12/16/22 documented as of this encounter
--- OUTSIDE RECORDS SUMMARY | 2024-11-23 00:14 | XMS_ITS | Encounter Summary ---
Author Organization [facility] Care Address [address] [place] [address] Phone Care Team Providers Care Manager Front Office Name Role Phone Coco Leos PA-C Primary Care Provider [phone] Provider, No-Primary Care Primary Care Provider Unavailable Encounter Details Date Type Department Care Team (Late st Contact Info) Description 11/16/2017 Pharmacy Visit RX [facility] [address] [place] [phone] Social History Tobacco Use Types Packs/Day [...] Depression Total Score: 12 018 12:31 PM WASTEWATER ANALYST PHQ-2 Depression Total Score: 5 11/16/19 18 12:31 PM WASTEWATER ANALYST documented as of this encounter Care Teams Manager Front Office Relationship Specialty Start Date End Date Coco Leos PA-C [address] [place], [place] [phone] PCP - General Physician Cartography/Mapping Technician 02/17/17 12/15/22 Provider, No-Primary Care [place] PCP - General 12/16/22 documented as of this encounter
--- OUTSIDE RECORDS SUMMARY | 2024-11-23 00:14 | XMS_ITS | Encounter Summary ---
Author Organization [facility] Care Address [address] [place] [address] Phone Care Team Providers Care Production Proofreader Name Role Phone Coco Leos PA-C Primary Care Provider [phone] Provider, No-Primary Care Primary Care Provider Unavailable Encounter Details Date Type Department Care Team (Late st Contact Info) Description 12/09/2017 Pharmacy Visit [facility] [address] [place] [phone] Social History Tobacco Use Types Packs/Day [...] Depression Total Score: 12 018 12:31 PM ENVELOPE MACHINE ADJUSTER PHQ-2 Depression Total Score: 5 11/16/19 18 12:31 PM ENVELOPE MACHINE ADJUSTER documented as of this encounter Care Teams Production Proofreader Relationship Specialty Start Date End Date Coco Leos PA-C [address] [place], [place] [phone] PCP - General Physician Anode Rebuilder 02/17/17 12/15/22 Provider, No-Primary Care [place] PCP - General 12/16/22 documented as of this encounter
--- OUTSIDE RECORDS SUMMARY | 2024-11-23 00:14 | XMS_ITS | Encounter Summary ---
Author Organization [facility] Care Address [address] [place] [address] Phone Care Team Providers Care Instrument Repairer Name Role Phone Coco Leos PA-C Primary Care Provider [phone] Provider, No-Primary Care Primary Care Provider Unavailable Encounter Details Date Type Department Care Team (Late st Contact Info) Description 10/05/2017 Pharmacy Visit RX [facility] [address] [place] [phone] Social History Tobacco Use Types Packs/Day [...] as of this encounter Care Teams Instrument Repairer Relationship Specialty Start Date End Date Coco Leos PA-C [address] [place], [place] [phone] PCP - General Physician Nanny Caregiver 02/17/17 12/15/22 Provider, No-Primary Care [place] PCP - General 12/16/22 documented as of this encounter
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
--- OUTSIDE RECORDS SUMMARY | 2024-11-23 00:14 | XMS_ITS | Encounter Summary ---
Author Organization [facility] Address [address] [place] [address] Phone Care Team Providers Care Auxiliary Power Equipment Operator Name Role Phone Coco Leos PA-C Primary Care Provider [phone] Provider, No-Primary Care Primary Care Provider Unavailable Encounter Details Date Type Department Care Team (Late st Contact Info) Description 10/20/2017 Pharmacy Visit RX [facility] [address] [place] [phone] Social History Tobacco Use Types Packs/Day [...] Total Score: 0 10/20/20 17 9:51 AM BURNISHING MACHINE OPERATOR documented as of this encounter Care Teams Auxiliary Power Equipment Operator Relationship Specialty Start Date End Date Coco Leos PA-C [address] [place], [place] [phone] PCP - General Physician Casting Repairer 02/17/17 12/15/22 Provider, No-Primary Care [place] PCP - General 12/16/22 documented as of this encounter
--- OUTSIDE RECORDS SUMMARY | 2024-11-23 00:14 | XMS_ITS | Encounter Summary ---
Author Organization [facility] Address [address] [place] [address] Phone Care Team Providers Care Cook Fry Name Role Phone Coco Leos PA-C Primary Care Provider [phone] Provider, No-Primary Care Primary Care Provider Unavailable Encounter Details Date Type Department Care Team (Late st Contact Info) Description 10/04/2017 Pharmacy Visit RX [facility] [address] [place] [phone] Social History Tobacco Use Types Packs/Day [...] documented as of this encounter Care Teams Cook Fry Relationship Specialty Start Date End Date Coco Leos PA-C [address] [place], [place] [phone] PCP - General Physician Food Safety Field Specialist 02/17/17 12/15/22 Provider, No-Primary Care [place] PCP - General 12/16/22 documented as of this encounter
--- OUTSIDE RECORDS SUMMARY | 2024-11-23 00:14 | XMS_ITS | Encounter Summary ---
Author Organization [facility] Address [address] [place] [address] Phone Care Team Providers Care Public Space Attendant Name Role Phone Coco Leos PA-C Primary Care Provider [phone] Provider, No-Primary Care Primary Care Provider Unavailable Encounter Details Date Type Department Care Team (Late st Contact Info) Description 11/05/2017 Pharmacy Visit RX [facility] [address] [place] [phone] Social History Tobacco Use Types Packs/Day [...] Total Score: 0 10/20/20 17 9:51 AM SQUIRREL MAN documented as of this encounter Care Teams Public Space Attendant Relationship Specialty Start Date End Date Coco Leos PA-C [address] [place], [place] [phone] PCP - General Physician Center Line Cutter Operator 02/17/17 12/15/22 Provider, No-Primary Care [place] PCP - General 12/16/22 documented as of this encounter
--- OUTSIDE RECORDS SUMMARY | 2024-11-23 00:14 | XMS_ITS | Encounter Summary ---
Author Organization [facility] Care Address [address] [place] [address] Phone Care Team Providers Care Crystalizer Name Role Phone Coco Leos PA-C Primary Care Provider [phone] Reason for Visit * Reason Comments Patient Reported Reason For Visit nwp/Sk in lesion of right ear/rph is pcp * Referral (E. Within 3 months) - Closed Specialty Diagnoses / Procedures Referred By Celine t Referred To Contact Dermatology Diagnoses Skin lesion of right ear Coco Leos PA-C [address] [place] [address] Phone: tel: fax: [facility] Dermatology [address] [place] [phone] Phone: tel: fax: Referral ID Status Reason Start Date Expiration Date Visits Re quested Visits Authorized [id number] Closed 07/09/2017 12/31/2018 1 1 Encounter Details Date Type Department Care Team (Late st Contact Info) Description 10/18/2017 3:00 PM PATTERN STAMPER Office Visit [facility] Dermatology [address] [place] [phone] Default, Other [facility] [address] [place] [phone] Beatrice Carey [address] [place], [place] [phone] Ambreen Arciniega Social History Tobacco Use Types Packs/Day Years [...] on file documented as of this encounter Patient Instructions * Discharge Instructions* Dea Venegas - 10/18/2017 2:47 PM PATTERN STAMPER Many of the spots today are sun damaged spot called actinic keratoses. We will freeze some today. We may have you use a cream in the future called Efudex to treat your arms. Sun Protection Recommendations Minimize direct outdoor sunlight from 10:00 am - 3:00 pm. Use a broad spectrum (UVA and UVB) sunscreen SPF #30 or greater. Apply at least every 2 hours, or more often if swimming or sweating. Wear sun protective clothing/hats. Avoid the use of tanning beds. Wound Care after a Biopsy When should I call my doctor? If you have increased: o Pain or swelling o Pus or drainage o Fever over 101?? F (38.3 ?? C) o Redness or warmth around wound Call if questions: [facility] Dermatology Clinic, Wednesday-Wednesday 8:00 a.m. to 5:00 p.m. (Nursing) OR After hours, weekends and holidays, call the [facility] Call Center at [phone]. Ask for the Dermatology resident electronic intelligence officer OR 24 hours a day call toll-free and ask for the Dermatology resident electronic intelligence officer. How should I care for my wound for the first 24 hours? Keep the wound dry If it bleeds, hold pressure right on the wound for 10 minutes If your doctor says you can: ??? You may take acetaminophen (Tylenol??) or ibuprofen (Advil??/Motrin??) for pain. ??? You can take naproxen (Aleve??) instead of ibuprofen if you wish. How should I care for the wound after 24 hours? Remove the bandage ??? You may bathe or shower as normal How do I clean my wound? Wash hands or use hand shake maker before and after all wound care ??? Clean the wound twice a day ??? Remove drainage and crust, as needed. Use cotton-tipped applicators dipped in hydrogen peroxideto do this. ??? Do not let a scab form. ??? Use white petroleum/Vaseline?? after it is clean ??? Replace the Band-Aid??/bandage. Keep the wound covered until it is fully healed. What should I use to clean my wound? Hydrogen peroxide ??? Cotton-tipped applicators (like Qtips??) ??? White petroleum jelly (like Vaseline??) ??? Band-Aids?? as needed How should I care for my wound after a shave biopsy? Do wound care for 1 week or until the wound is healed How should I care for my wound after a punch biopsy? Do wound care until the stitches are removed ??? Stitches need to be removed in 00 days. This can be done in our clinic or at your local doctor???s office ??? Your doctor will call you in 7 to 10 working days with the results. Your biopsy results will also be on My Chart. ??? Please call us if you have not heard about your results after 2 weeks Instruction status: Reviewed with patient/caregiver and understanding verbalized. Copy provided. Finalized by: shanell Template last reviewed/revised: 06/30 Recommend monthly self skin exams. Report any new, changing, nonhealing or symptomatic skin lesions. ERN STAMPER documented in this encounter Progress Notes * Ambreen Arciniega MD - 10/18/2017 3:00 PM CSTAssociated Order(s): DESTRUCTION PREMALIGNANT LESIONS; BIOPSY OF SKIN Post-Procedure Diagnose(s): Actinic keratoses; Neoplasm of uncertain behavior of skin Dermatology Clinic Note Encounter Date: 10/18/2017 Subjective: History of Present Illness: This 62 y.o. male presents in consultation from Coco Leos PA-C for lesion of concern on the right ear. Patient reports noticing a spot on his right ear for the past 5-6 years that does not heal. He frequently picks it off. He denies itching, pain, bleeding. He also has a few rough spots thathe picks at on his scalp, right cheek, and forearms. He denies personal history of skin cancer. He had a bad sunburn on his back as a child that blistered severely. There are no other new, changing or symptomatic lesions. No other skin concerns today. 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 After back injury in 04/2017 has been working light duty at [employer]. Social History Substance Use Topics ??? Smoking status: Never Smoker ??? Smokeless tobacco: Never Used ??? Alcohol use No Comment: Not since 1996 Family History: No family history of skin cancer, melanoma, or other skin diseases. Medications: Outpatient Medication Currently Taking Medication Sig Refill ??? amitriptyline 75 mg tablet Take 1 tablet (75 mg total) by mouth at bedtime. 11 ??? baclofen 10 mg tablet Take 1 tablet (10 mg total) by mouth at bedtime. 11 ??? DULoxetine 30 mg XR capsule Take 1 capsule (30 mg total) by mouth daily. 11 ??? gabapentin 100 mg capsule Take 2 capsules (200 mg total) by mouth at bedtime. 11 ??? lidocaine 5 % ointment Apply topically 2 times daily as needed. 11 ??? naloxone 1 mg/mL injection syringe (2 mL) Gently screw vial of naloxone into barrel of syringe.Insert white cone into nostril. Give a short, vigorous push on end of vial to spray 1/2 of vial, 1ml, into each nostril. Repeat with second vial in 3 minutes, if no response. 0 ??? omeprazole 20 mg enteric coated capsule Take 20 mg by mouth daily. ??? oxyCODONE (OXYCONTIN) 15 mg XR tablet Take 1 tablet (15 mg total) by mouth 2 times daily. Earliest Fill Date: 10/11/17 0 ??? oxyCODONE-acetaminophen 10-325 mg per tablet Take 1 tablet by mouth every 4 hours as needed forPain. Earliest Fill Date: 10/11/17 0 ??? propranolol 80 mg XR capsule Take 1 capsule (80 mg total) by mouth daily. 2 ??? sennosides (SENEXON) 8.6 mg tablet Take 1 tablet by mouth 2 times daily as needed. Allergies: No Known Allergies Review of Systems: As per HPI Objective: Physical exam: This is a well developed, well-nourished male in no acute distress, with a pleasant affect. Waist-up skin, which includes the head/face, neck, both arms, chest, back, abdomen, digits and/or nails, was examined. - 6 mm skin colored slightly indurated plaque on the right mid antihelix - Erythematous macules with adherent scale on the right ear lobule x 1, right cheek x 1, right pre-auricular skin x 1, vertex scalp x 2, left helix x 1, left forearm x 4, right forearm x 2, right dorsal hand x 1 as well as ill-defined erythematous scaly patches on the forehead and dorsal forearms - There are no other skin lesions of concern in the areas examined. Impression: 1. Neoplasm of uncertain behavior, right mid antihelix - differential diagnosis: basal cell carcinoma vs squamous cell carcinoma vs actinic keratosis vs seborrheic keratosis vs scar vs other. 2. Actinic keratoses, right ear lobule x 1, right cheek x 1, right pre-auricular skin x 1, vertex scalp x 2, left helix x 1, left forearm x 4, right forearm x 2, right dorsal hand x 1 with diffuse actinic keratoses on the dorsal forearms. Plan: 1. Clinical findings discussed with the patient. 2. Shave biopsy of right antihelix neoplasm as documented below. 3. Cryotherapy to 13 actinic keratoses as documented below. Discussed that we may consider Efudex to dorsal forearms and possibly forehead in the future. Recommended monthly self skin exams. Advised to report any new, changing, nonhealing or symptomaticlesions. 4. Recommended sunscreens SPF #30 or greater with reapplication every 2-3 hours with sun exposure, seeking shade, use of protective clothing/hats, and avoidance of tanning beds. Follow up 6 months. Procedure Performed: Biopsy Area affected: head/neck Location details: right ear Number of lesions: 1 Additional Procedure Detail: After the risks and benefits were discussed with the patient, all questions were addressed and informed consent was signed. 1% lidocaine with 1:100,000 epinephrine was injected to obtain adequate anesthesia of the lesion as described above. A shave biopsy was performed. Hemostasis was achieved with aluminum chloride. White petroleum jelly/Vaseline and a bandage were applied to the wound. AK destruction Number of lesions: 13 Additional Procedure Detail: The above described lesions were treated with liquid nitrogen cryotherapy to achieve a freeze border of 1-2 mm. Post-cryotherapy wound care instructions were provided. Explicit verbal and written wound care instructions were provided. The patient left the [facility]ermatologyClinic in good condition. Beatrice Carey MD staffed the patient and was physically present for the jean baptiste portions of the above major procedure(s). Staff Involved: Staff and Resident/Fellow Ambreen Arciniega MD, Resident Staff Physician Comments: Teaching Statement I have interviewed and examined the patient and confirm the pertinent findings. I have discussed the case with the resident/fellow and agree with the findings and plan as documented. Procedure Attestation I was physically present for the jean baptiste portion(s) of the procedure and was immediately available for the non-jean baptiste portions. Jean Baptiste portions defined as the site selection and performance of shave and destruction of an initial lesion. Beatrice Carey MD Dermatology Department Addendum 10/26/2017 Attempted to call patient several times to discuss the following results. Was able to reach that patient's brother on 10/26 who had the patient's phone. He reports that patient was checked into the stress looney. He states the patient has been having trouble coping. States he is admitted in [place] across the street from the [facility] clinic (assume he is at [facility]). Brother reports he will likely be out next week, so will attempt to call at that time and discuss Efudex use. 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 I have personally reviewed this case and edited the report as necessary. Ambreen Arciniega MD, Resident I have read the addendum and agree with the above plan. Beatrice Carey MD Dermatology Department Addendum 11/30/2017 Attempted to reach patient by phone after he was discharged from inpatient psychiatry and left voicemail. Patient did not call back, so a letter was sent requesting patient call back to discuss and order placed for 6 month follow up. Ambreen Arciniega MD ERN STAMPER ERN STAMPER ERN STAMPER ERN STAMPER ERN STAMPER documented in this encounter Miscellaneous Notes * Addendum Note - Ambreen Arciniega MD - 10/18/2017 3:00 PM CSTAddended by: AMBREEN ARCINIEGA on: 11/30/2017 04:11 PM Modules accepted: Orders ERN STAMPER * Addendum Note - Beatrice Carey MD - 10/18/2017 3:00 PM CSTEncounter addended by: Beatrice Carey MD on: 12/01/2017 2:28 PM
Actions taken: Letter status changed ERN STAMPER * Addendum Note - Ambreen Arciniega MD - 10/18/2017 3:00 PM CSTEncounter addended by: Ambreen Arciniega MD on: 12/01/2017 3:40 PM
Actions taken: Letter status changed ERN STAMPER documented in this encounter Plan of Treatment Not on file documented as of this encounter Procedures Procedure Name Priority Date/Time Associated Diagnosis Comments BX XTRNL EAR Routine 11/30/2017 4:11 PM PATTERN STAMPER Neoplasm of uncertain behavior of skin DSTRJ ALL PRMLG 2-14 EA Routine 11/30/19 18 4:11 PM PATTERN STAMPER Actinic keratoses DSTRJ ALL PRMLG 1ST LES Routine 11/30/19 18 4:11 PM PATTERN STAMPER Actinic keratoses DERMATOPATHOLOGY EXAM Routine 10/18/2017 2:47 PM PATTERN STAMPER Neoplasm of uncertain behavior of skin documented in this encounter Results * DSTRJ ALL PRMLG 1ST LES, DSTRJ ALL PRMLG 2-14 EA (11/30/2017 4:11 PM PATTERN STAMPER) Narrative Ambreen Arciniega MD - 11/30/2017 4:11 PM PATTERN STAMPER Ambreen Arciniega MD ? 11/30/2017 ??4:11 PM AK destruction Number of lesions: 13 Additional Procedure Detail: The above described lesions were treated with liquid nitrogen cryotherapy to achieve a freeze border of 1-2 mm. ??Post-cryotherapy wound care instructions were provided. Beatrice Carey DERM PROCEDURE ORDERABLES Ed ited Result - Final * BX XTRNL EAR (11/30/2017 4:11 PM PATTERN STAMPER) Narrative Ambreen Arciniega MD - 11/30/2017 4:11 PM PATTERN STAMPER Ambreen Arciniega MD ? 11/30/2017 ??4:11 PM Biopsy Area affected: head/neck Location details: right ear Number of lesions: 1 Additional Procedure Detail: After the risks and benefits were discussed with the patient, all questions were addressed and informed consent was signed. ??1% lidocaine with 1:100,000 epinephrine was injected to obtain adequate anesthesia of the lesion as described above. ??A shave biopsy was performed. ??Hemostasis was achieved with aluminum chloride. White petroleum jelly/Vaseline and a bandage were applied to the wound. us Beatrice Carey NOTEWRITER PROCEDURES Edited Result - Final * DERMATOPATHOLOGY EXAM (10/18/2017 2:47 PM PATTERN STAMPER) Case Report Surgical Pathology ?Case: [id number] ? Authorizing Provider: ??Ambreen Arciniega MD ? Collected: ? 10/18/2017 02:47 PM ? Ordering Location: ? Dermatology Clinic ? Received: ?10/18/2017 04:30 PM ? Pathologist: ? Maryellen Bojorquez MD ? Specimen: ?Skin shave, right mid-antihelix ? 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 I have personally reviewed this case and edited the report as necessary. 10/20/2017 12:32 PM [facility] Clinical Information 6 mm skin colored, indurated flat topped papule with erosion. Differential diagnosis: basal cell carcinoma vs squamous cell carcinoma vs actinic keratosis vs other. 10/20/2017 12:32 PM [facility] Gross Description Received in formalin, in a container labeled Edilberto Hawley, hospital number, and right mid-antihelix , is a 0.8 x 0.5 x 0.1 cm coyne-barnett shave biopsy. The specimen is inked, bisected and submitted entirely in A1. AJF/rls 10/20/2017 12:32 PM [facility] Microscopic Description Sections show a skin shave that demonstrates partial to full thickness proliferation of atypical keratinocytes associated with overlying compact hyperkeratosis and parakeratosis. Margins appear uninvolved in the plane of sectioning. Performed by: Leelee Hudson MD, R3/rls 10/20/2017 12:32 PM PATTERN STAMPER [facility] Tissue specimen (specimen) SKIN STRUCTURE / Unknown 10/18/2017 2:47 PM PATTERN STAMPER 10/18/2017 4:30 PM PATTERN STAMPER Comment:6 mm skin colored, i ndurated flat topped papule with erosion. Differential diagnosis: basal cell carcinoma vs squamous cell carcinoma vs actinic keratosis vs other. 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
--- OUTSIDE RECORDS SUMMARY | 2024-11-23 00:14 | XMS_ITS | Encounter Summary ---
Author Organization [facility] Care Address [address] [place] [address] Phone Care Team Providers Care Tree Inspector Name Role Phone Coco Leos PA-C Primary Care Provider [phone] Reason for Visit * Reason Comments Medication Refill Encounter Details Date Type Department Care Team (Late st Contact Info) Description 10/06/2017 Refill [facility] [address] [place] [phone] Maxine Pope [address] [place], [place] [phone] Social History Tobacco Use Types Packs/Day Years [...] * Telephone Encounter - Dayanna Escamilla - 10/11/2017 9:55 AM CST 10/11/17 9:55AM placed Rx-2 in [facility] folder. Js PATINO M DIPPER * Telephone Encounter - Maxine Pope, [facility] - 10/06/2017 11:13 AM CREAM DIPPER [facility] Pain Medication Refill Service - Pharmacist's Note: Edilberto Hawley is enrolled in the Pain Medication Refill Service and requests renewal of Oxycodone CR 15mg, #60, and Oxycodone/APAP 10/325mg,#120, for back and RLE pain. Level of Analgesia He reports an average pain score after medication of 7/10 in the last week. Functional Activity Improved abilities: walking and general activity Adverse Events He reports a fall d/t back gave out, no injury; he does not use a cane/walker/wheelchair. Denies over-sedation, confusion and constipation. Aberrant Behavior Last fill 09/08. There are no unexpected entries on the REVOLVING FIELD ASSEMBLER and refill frequency is every 30-31 days. Opioid agreement signed 01/12/17 with Coco Leos PA-C. Urine Drug Screen: 07/09/17 confirmed (+) OC, OM and metabolites, as expected. Respiratory Depression Risk Score >3; anti-depressant and long acting opioid prescribed, emergency visit within last 6 months and history of opioid abuse ER 05/12, [facility] ER 04/16; hx/o METH, MELECIO Morphine equivalent dose is 105 mg/day. server systems administrator is available. Emergency intranasal naloxoneis warranted and on hand at this time. Prescriptions pended for Coco Leos PA-C, last visit: 09/22; return visit: 10/20. Please send orders to [facility] pharmacy for pick-up. Thank you, Cristina George, [facility], BCACP M DIPPER documented in this encounter Plan of Treatment Not on file documented as of this encounter Visit Diagnoses Diagnosis Other chronic pain documented in this encounter Additional Health Concerns Assessment Noted Time PHQ-2 Depression Total Score: 0 08/09/20 17 9:37 AM CDT documented as of this encounter Care Teams Tree Inspector Relationship Specialty Start Date End Date Coco Leos PA-C [address] [place] [phone] PCP - General Physician Traffic Supervisor 02/17/17 12/15/22 documented as of this encounter
--- OUTSIDE RECORDS SUMMARY | 2024-11-23 00:14 | XMS_ITS | Encounter Summary ---
Author Organization [facility] Care Address [address] [place] [address] Phone Care Team Providers Care Poured Wall Foreman Name Role Phone Coco Leos PA-C Primary Care Provider [phone] Provider, No-Primary Care Primary Care Provider Unavailable Encounter Details Date Type Department Care Team (Late st Contact Info) Description 10/09/2017 Pharmacy Visit [facility] [address] [place] [phone] Social History Tobacco Use Types Packs/Day [...] documented as of this encounter Care Teams Poured Wall Foreman Relationship Specialty Start Date End Date Coco Leos PA-C [address] [place], [place] [phone] PCP - General Physician Assembler Aircraft Power Plant 02/17/17 12/15/22 Provider, No-Primary Care [place] PCP - General 12/16/22 documented as of this encounter
--- OUTSIDE RECORDS SUMMARY | 2024-11-23 00:14 | XMS_ITS | Encounter Summary ---
Author Organization [facility] Care Address [address] [place] [address] Phone Care Team Providers Care Foam Rubber Fabricator Name Role Phone Coco Leos PA-C Primary Care Provider [phone] Reason for Visit * Reason Comments Patient Reported Reason For Visit Patient Reported Reason For Visit Encounter Details Date Type Department Care Team (Latest Contact Info) Description 11/16/2017 12:39 PM NATURALIZATION EXAMINER - 11/16/2017 11:59 PM [facility] Hospital Encounter [place] [facility] - Radiology [address] [phone] Karen Cruz MD [address] [place] [address] Discharge Disposition: Home or Self Care Social [...] 30 tablet 11 06/10/2018 2:04 PM CDT 11/16/2017 baclofen 10 mg tabletIndication s:muscle spasticity of spinal origin Take 1 tablet (10 mg total) by mouth at bedtime. 30 tablet 11 06/10/2018 2:04 PM CDT 08/09/2017 capsaicin 0.025 [...] needed. 35.44 g 11 01/12/2017 5:22 PM NATURALIZATION EXAMINER 01/12/2017 omeprazole 20 mg enteric coated capsule Take 20 mg by mouth daily. sennosides (SENEXON) 8.6 mg tablet Take 1 tablet by mouth 2 times daily as needed. DULoxetine 60 mg XR capsuleIndicatio ns:Other chronic pain,Moderate episode of recurrent major depressive disorder (HCC) Take 1 capsule (60 mg total) by mouth daily. 30 capsule 11 11/16/2017 1:10 PM NATURALIZATION EXAMINER 11/16/2017 8 naloxone 1 mg/mL injection syringe (2 mL)Indications:O [...] daily. Earliest Fill Date: 11/10/17 60 tablet 11/16/2017 1:10 PM NATURALIZATION EXAMINER 11/10/2017 8 oxyCODONE-acetam inophen 10-325 mg per tabletIndication s:Other chronic pain Take 1 tablet by mouth every 4 hours as needed for Pain. Earliest Fill Date: 11/10/17 120 tablet 11/16/2017 1:10 PM NATURALIZATION EXAMINER 11/10/2017 8 documented as of this encounter Plan of Treatment Not on file documented as of this encounter Procedures Procedure Name Priority Date/Time Associated Diagnosis Comments [facility] RIGHT Routine 11/16/2017 12:46 PM NATURALIZATION EXAMINER Right hip pain documented in this encounter Results * HIP AP & LAUENSTEIN RIGHT (11/16/2017 12:46 PM NATURALIZATION EXAMINER) Anatomical Region Laterality Modality lower extremity Computed Radiogr aphy Impressions 11/16/2017 5:02 PM NATURALIZATION EXAMINER Findings / Impression: No acute fracture or dislocation. Joint spaces well-maintained. Unremarkable exam. Narrative 11/16/2017 5:02 PM NATURALIZATION EXAMINER Procedure: HIP AP & LAUENSTEIN RIGHT Clinical Indication: Right hip pain Comparison: None. Procedure Note Domingo Sanchez MD - 11/16/2017 Procedure: HIP AP & LAUENSTEIN RIGHT Clinical Indication: Right hip pain Comparison: None. IMPRESSION Findings / Impression: No acute fracture or dislocation. Joint spaces well-maintained. Unremarkable exam. us Coco Leos PA-C RAD GEN ORDERABLES Final Res ult documented in this encounter Visit Diagnoses Diagnosis Right hip pain Pain in joint, pelvic region and thigh documented in this encounter Additional Health Concerns Assessment Noted Time PHQ-9 Depression Total Score: 12 018 12:31 PM NATURALIZATION EXAMINER PHQ-2 Depression Total Score: 5 11/16/19 18 12:31 PM NATURALIZATION EXAMINER documented as of this encounter Care Teams Foam Rubber Fabricator Relationship Specialty Start Date End Date Coco Leos PA-C [address] [place] [id number] PCP - General Physician Heavy Forging Machine Operator 02/17/17 12/15/22 documented as of this encounter
--- OUTSIDE RECORDS SUMMARY | 2024-11-23 00:14 | XMS_ITS | Encounter Summary ---
Author Organization [facility] Care Address [address] [place] [address] Phone Care Team Providers Care Specialist Physician Name Role Phone Coco Leos PA-C Primary Care Provider [phone] Reason for Visit * Reason Comments Patient Reported Reason For Visit WC RTN HEAD INJURY Encounter Details Date Type Department Care Team (Late st Contact Info) Description 11/03/2017 11:00 AM RELIABILITY MANAGER Office Visit [facility] Orthopedics - Work Injury Recovery [address] [place] [phone] Estevan Johnson MD [address] [place], [place] [phone] Social History Tobacco Use Types Packs/Day Years [...] Sign Reading Time Taken Comments Blood Pressure 138/79 11/03/2017 10:53 AM RELIABILITY MANAGER Pulse 72 11/03/2017 10:53 AM RELIABILITY MANAGER Temperature 36.3 ??C (97.3 ??F) 11/03/2017 10:[address] Respiratory Rate - - Oxygen Saturation - - Inhaled Oxygen Concentration - - Weight 89.9 kg (198 lb 3.1 oz) 11/03/2017 10:53 AM RELIABILITY MANAGER Height 180.3 cm (5' 11 ) 11/03/2017 10:53 AM RELIABILITY MANAGER Body Mass Index 27.64 11/03/2017 10:53 AM RELIABILITY MANAGER documented in this encounter Progress Notes * Estevan Johnson MD - 11/03/2017 11:00 AM CST Encounter date: 11/03/2017 Mr. Edilberto Hawley returns regarding his Headaches, dizziness, and tinnitus symptoms. I last saw the patient on September 22, 2017 and recommended referral to otolaryngology, consideration of gettingoff the gabapentin if not felt working, and referral to Dr. Barth who is a health psychologist. he did meet with the health psychologist and was given some basic instruction regarding mindfulness and other techniques but had difficulty with those concepts and was not felt able to learn more complicated psychological concepts for pain management. He also was seen by Dr. Alexis in otolaryngology who noted hearing loss based on testing and clinical exam with [place]-Hallpike maneuver was negative. The software technician testing prior to the ENT visit indicated that his dizziness has mostly resolved. Current symptoms: The patient currently has back, left shoulder, and left thigh pain. His headachesare not currently present. He has some concerns with both requested of him regarding work. He has been working at [email or web address] but notes that as the day goes on his symptoms worsen. He also apparently had a hospitalization for mood since I have seen him but denies any thoughts of self-harm. Other: On October 19 2017, he underwent an EMG which showed a polyneuropathy. It was noted that there is no way for them to evaluate for meralgia paresthetica. Current Outpatient Prescriptions Medication Sig Dispense Refill [...] 2,000 Units by mouth daily. ??? DULoxetine 40 mg XR capsule Take 1 capsule (40 mg total) by mouth daily. 30 capsule [...] 2 times daily. Earliest Fill Date: 10/11/17 60 tablet 0 ??? oxyCODONE-acetaminophen 10-325 mg per tablet Take 1 tablet by mouth every 4 hours as needed forPain. Earliest Fill Date: 10/11/17 120 tablet 0 ??? propranolol 60 mg XR capsule Take 1 capsule (60 mg total) by mouth daily. Stop propranolol 80mg30 capsule 2 ??? sennosides (SENEXON) 8.6 mg tablet Take 1 tablet by mouth 2 times daily as needed. No current facility-administered medications for this visit. No Known Allergies Review of systems: All systems were reviewed and are negative except for: Ears: Ringing in the ears, Trouble hearing, Dizziness Nose/throat/mouth: Throat problems Cardiovascular: Pain in legs GI: Heart burn, Hard to swallow Musculoskeletal: Joint pain, Joint stiffness, Muscle weakness, Arm Pain, Arm Weakness, Leg Pain, Leg Weakness Mental Health: Feeling down or depressed Physical Examination: BP 138/79 Pulse 72 Temp 36.3 ??C (97.3 ??F) (Tympanic) Ht 1.803 m (5' 11 ) Wt 89.9 kg (198 lb 3.1 oz) BMI 27.64 kg/m?? BMI: 27.65 kg/(m^2) General: Well-developed, well nourished individual who appears in no acute distress. Mental status: Blunted affect. HEENT: Pupiils equal and round, Shoulder shrug symmetric. Extraocular movements intact. Soft palateelevation symmetric. Tongue midline. Neurologic: Coordination grossly intact. Gait: Antaglic on left with compensated Trendelenburg. Impression: ICD-10-CM ICD-9-CM 1. History of concussion Z87.820 V15.52 2. Polyneuropathy G62.9 356.9 Plan: 1. Regarding the prior mild concussion, clinically this has resolved with both objective and subjective evaluation. With regards to this, he can be considered at [facility] as of this date. There are restrictions with regard to this diagnosis. 2. Regarding his balance issues, vestibular evaluation with ENT was unremarkable. EMG showed polyneuropathy as aforementioned. The balance issues appear at this point within reasonable medical certainty more likely than not are related to the polyneuropathy and, therefore, there are no restrictions related to the diagnosis of prior mild concussion. 3. He was noted to have hearing loss by ENT but treatment of that is (within reasonable medical certainty) not related to the work incident so he could pursue amplification of hearing through privateinsurance/cost. 4. There are no specific medications that need to be used at this point with regard to his prior mild concussion. 5. His other concerns are being addressed by other providers. Staff Involved Staff Only Time spent for today???s services totaled 25-28 minutes face to face, of which at least 15 minutes consisted of face to face counseling and/or coordination of care, as described in my note above. Estevan Johnson MD Physical Medicine & Rehabilitation Service Department of Orthopaedics & Rehabilitation [phone] Addendum (12/03/17): I have reviewed this note as there was a discrepancy between the activity status printed out on 11/03/17 and the last sentence of line 1 above in plan. The activity status wasaccurate, the word no was inadvertently left out of line 1. It should read There are NO restrictions with regard to this diagnosis. ABILITY MANAGER ABILITY MANAGER documented in this encounter Miscellaneous Notes * Communication Body - Bessy Colin - 11/03/2017 11:00 AM CST We saw Edilberto Hawley in Orthopaedics at the [facility] on 11/03/17. Enclosed is a copy of our notes. If you have any questions, please call my office. Sincerely, Estevan Johnson MD Physical Medicine & Rehabilitation Service Department of Orthopedics & Rehabilitation [phone] ABILITY MANAGER documented in this encounter Plan of Treatment Not on file documented as of this encounter Visit Diagnoses Diagnosis History of concussion- Primary Personal history of traumatic brain injury Polyneuropathy Unspecified hereditary and idiopathic peripheral neuropathy documented in this encounter Additional Health Concerns Assessment Noted Time PHQ-2 Depression Total Score: 0 10/20/20 17 9:51 AM RELIABILITY MANAGER documented as of this encounter Care Teams Specialist Physician Relationship Specialty Start Date End Date Coco Leos PA-C [address] [place], [place] [phone] PCP - General Physician Instructor Physical Education 02/17/17 12/15/22 documented as of this encounter
--- OUTSIDE RECORDS SUMMARY | 2024-11-23 00:14 | XMS_ITS | Encounter Summary ---
Author Organization [facility] Care Address [address] [place] [address] Phone Care Team Providers Care Community Development Planner Name Role Phone Coco Leos PA-C Primary Care Provider [phone] Provider, No-Primary Care Primary Care Provider Unavailable Encounter Details Date Type Department Care Team (Late st Contact Info) Description 11/19/2017 Pharmacy Visit [facility] [address] [place] [phone] Social History Tobacco Use Types Packs/Day [...] Depression Total Score: 12 018 12:31 PM FEEDER/FOLDER PHQ-2 Depression Total Score: 5 11/16/19 18 12:31 PM FEEDER/FOLDER documented as of this encounter Care Teams Community Development Planner Relationship Specialty Start Date End Date Coco Leos PA-C [address] [place], [place] [phone] PCP - General Physician Stroke Belt Sander Operator 02/17/17 12/15/22 Provider, No-Primary Care [place] PCP - General 12/16/22 documented as of this encounter
--- OUTSIDE RECORDS SUMMARY | 2024-11-23 00:14 | XMS_ITS | Encounter Summary ---
Author Organization [facility] Care Address [address] [place] [address] Phone Care Team Providers Care Restoration Technician Name Role Phone Coco Leos PA-C Primary Care Provider [phone] Reason for Visit * Reason Comments Dizziness Encounter Details Date Type Department Care Team (Late st Contact Info) Description 10/11/2017 [facility] Otolaryngology - Speech and Hearing [address] [place] [phone] Desire Frias, [facility] [address] [place] [address] Social History Tobacco Use Types [...] encounter Miscellaneous Notes * Telephone Encounter - Desire Frias - 10/11/2017 3:52 PM CST I called and spoke to patient. We filled out the Balance Questionnaire. I will give the questionnaire to Dr. Ascencio for his review. Desire Frias M.A. KAYLIE-A Senior Php Web Developer II Director, Audiology Clinic HIATRIC NURSE documented in this encounter Plan of Treatment Not on file documented as of this encounter Visit Diagnoses Not on filedocumented in this encounter Additional Health Concerns Assessment Noted Time PHQ-2 Depression Total Score: 0 08/09/20 17 9:37 AM CDT documented as of this encounter Care Teams Restoration Technician Relationship Specialty Start Date End Date Coco Leos PA-C [address] [place] [id number] PCP - General Physician Oil Lease Broker 02/17/17 12/15/22 documented as of this encounter
--- OUTSIDE RECORDS SUMMARY | 2024-11-23 00:14 | XMS_ITS | Encounter Summary ---
Author Organization [facility] Care Address [address] [place] [address] Phone Care Team Providers Care Process Chemist Name Role Phone Coco Leos PA-C Primary Care Provider [phone] Provider, No-Primary Care Primary Care Provider Unavailable Encounter Details Date Type Department Care Team (Late st Contact Info) Description 11/09/2017 Pharmacy Visit RX [facility] [address] [place] [phone] Social History Tobacco Use Types Packs/Day [...] Total Score: 0 10/20/20 17 9:51 AM EVENT COORDINATOR MARKETING AND SALES documented as of this encounter Care Teams Process Chemist Relationship Specialty Start Date End Date Coco Leos PA-C [address] [place], [place] [phone] PCP - General Physician Vacuum Applicator Operator 02/17/17 12/15/22 Provider, No-Primary Care [place] PCP - General 12/16/22 documented as of this encounter
--- OUTSIDE RECORDS SUMMARY | 2024-11-23 00:14 | XMS_ITS | Encounter Summary ---
Author Organization [facility] Care Address [address] [place] [address] Phone Care Team Providers Care Community Organization Aide Name Role Phone Coco Leos PA-C Primary Care Provider [phone] Reason for Visit * Reason Comments Medication Refill Encounter Details Date Type Department Care Team (Late st Contact Info) Description 11/05/2017 Refill [facility] [address] [place] [phone] Maxine Pope [address] [place], [place] [phone] Social History Tobacco Use Types Packs/Day Years [...] * Telephone Encounter - Dayanna Escamilla - 11/05/2017 2:25 PM CST 11/05/17 14:25 placed Oxycodone-APAP and XR Rx's in [facility]. Js PATINO OGRAPH INSPECTOR * [facility] - [facility]05/2017 7:51 AM PHOTOGRAPH INSPECTOR [facility] Pain Medication Refill Service - Pharmacist's Note: Edilberto Hawley is enrolled in the Pain Medication Refill Service and requests renewal of Oxycodone 15mg CR, #60, and Oxycodone/APAP 10/325mg,#120, for back pain. He reports a hospitalization last week. Level of Analgesia He reports an average pain score after medication of 6*7/10 in the last week. Functional Activity Improved abilities: working Adverse Events Denies over-sedation, confusion, falls and constipation. He controls constipation with a stool softener. Aberrant Behavior Last fill 10/11. There are no unexpected entries on the [facility] and refill frequency is every 30-33 days. Opioid agreement signed 01/12/17 with Coco Leos PA-C. Urine Drug Screen: 07/09/17 confirmed (+) OC, OM & metabolites, as expected Respiratory Depression Risk Score >3; anti-depressant and long acting opioid prescribed, hospital and emergency visit within last 6 months and history of opioid abuse (OSH 10/2017, ED 05/12; hx/o METH, MELECIO) Morphine equivalent dose is 105 mg/day. photographic processor is available. Emergency intranasal naloxoneis warranted and on hand at this time. Prescriptions pended for Coco Leos PA-C, last visit: 10/20; return visit: 11/16. Please send orders to [facility] pharmacy for pick-up. Thank you, Cristina George, [facility], BCACP OGRAPH INSPECTOR documented in this encounter Plan of Treatment Not on file documented as of this encounter Visit Diagnoses Diagnosis Other chronic pain documented in this encounter Additional Health Concerns Assessment Noted Time PHQ-2 Depression Total Score: 0 10/20/20 17 9:51 AM PHOTOGRAPH INSPECTOR documented as of this encounter Care Teams Community Organization Aide Relationship Specialty Start Date End Date Coco Leos PA-C [address] [place] [address] PCP - General Physician Quarry Extraction Worker 02/17/17 12/15/22 documented as of this encounter
--- OUTSIDE RECORDS SUMMARY | 2024-11-23 00:14 | XMS_ITS | Encounter Summary ---
Author Organization [facility] Care Address [address] [place] [address] Phone Care Team Providers Care Spinning Mule Tender Name Role Phone Coco Leos PA-C Primary Care Provider [phone] Provider, No-Primary Care Primary Care Provider Unavailable Encounter Details Date Type Department Care Team (Late st Contact Info) Description 12/10/2017 Pharmacy Visit RX [facility] [address] [place] [phone] Social History Tobacco Use Types Packs/Day [...] Depression Total Score: 12 018 12:31 PM SHEET SORTER PHQ-2 Depression Total Score: 5 11/16/19 18 12:31 PM SHEET SORTER documented as of this encounter Care Teams Spinning Mule Tender Relationship Specialty Start Date End Date Coco Leos PA-C [address] [place], [place] [phone] PCP - General Physician Ride Attendant 02/17/17 12/15/22 Provider, No-Primary Care [place] PCP - General 12/16/22 documented as of this encounter
--- OUTSIDE RECORDS SUMMARY | 2024-11-23 00:14 | XMS_ITS | Encounter Summary ---
Author Organization [facility] Care Address [address] [place] [address] Phone Care Team Providers Care Truck Operator Name Role Phone Coco Leos PA-C Primary Care Provider [phone] Provider, No-Primary Care Primary Care Provider Unavailable Reason for Visit * Reason Comments Medication Refill Encounter Details Date Type Department Care Team (Late st Contact Info) Description 12/06/2017 Refill [facility] [address] [facility] [address] [place] [phone] Nikko Han, [facility] [address] [place], [place] [phone] Social History Tobacco Use Types Packs/Day Years [...] encounter Miscellaneous Notes * Telephone Encounter - Coco Leos PA-C - 12/06/2017 10:41 AM TELEVISION CAMERAMAN I am reducing # of prn to 90. This was discussed with pt at last visit. Coco Leos PA-C, 12/06/2017 10:41 AM VISION CAMERAMAN * Telephone Encounter - Dayanna Escamilla - 12/06/2017 10:16 AM CST Pharmacy is requesting refill of: oxycodone-APAP, oxycontin Last visit: 11/16/17 Next visit: 12/14/17 Last written: 11/10/17 Prescription destination: [facility] VISION CAMERAM[facility] * Telephone Encounter - Nikko Han [facility] - 12/06/2017 9:30 AM TELEVISION CAMERAMAN IR Pain Medication Refill Service - Pharmacist Note Edilberto Hawley is enrolled in the Pain Medication Refill Service and requests renewal of oxycodone 15mg CR #60 and oxycodone/apap 10/325mg #120 for Back pain. Level of Analgesia He reports an average pain score after medication of 6 in the last week. Functional Activity Improved abilities: working and mood Adverse Events Denies over-sedation, confusion, falls and constipation. Aberrant Behavior Last fill 11/16. There are no unexpected entries on the STREET SWEEPER and refill frequency isevery 30 days. Opioid agreement signed 01/12/[address] Leos. Urine Drug Screen: 07/09/17 postiive as expected. Respiratory Depression Risk Score >3; anti-depressant and long acting opioid prescribed, hospital and emergency visit within last 6 months and history of opioid abuse Morphine equivalent dose is 105 mg/day. diesel inspector is available. Emergency intranasal naloxoneis warranted at this time and is on hand. Prescriptions pended for Dr. Leos PAC, last visit: 11/16; return visit: 12/14. Please send orders to [facility] pharmacy for pick-up. Thank you, Zain Han IR pharmacy VISION CAMERAMAN documented in this encounter Plan of Treatment Not on file documented as of this encounter Visit Diagnoses Diagnosis Other chronic pain documented in this encounter Additional Health Concerns Assessment Noted Time PHQ-9 Depression Total Score: 12 018 12:31 PM TELEVISION CAMERAMAN PHQ-2 Depression Total Score: 5 11/16/19 18 12:31 PM TELEVISION CAMERAMAN documented as of this encounter Care Teams Truck Operator Relationship Specialty Start Date End Date Coco Leos PA-C [address] [place] [address] PCP - General Physician Master Black Belt 02/17/17 12/15/22 Provider, No-Primary Care [place] PCP - General 12/16/22 documented as of this encounter
--- OUTSIDE RECORDS SUMMARY | 2024-11-23 00:14 | XMS_ITS | Encounter Summary ---
Author Organization [facility] Care Address [address] [place] [address] Phone Care Team Providers Care Spear Fisher Name Role Phone Coco Leos PA-C Primary Care Provider [phone] Provider, No-Primary Care Primary Care Provider Unavailable Encounter Details Date Type Department Care Team (Late st Contact Info) Description 11/11/2017 Pharmacy Visit RX [facility] [address] [place] [phone] Social History Tobacco Use Types Packs/Day [...] Total Score: 0 10/20/20 17 9:51 AM SUPERINTENDENT MEASUREMENT documented as of this encounter Care Teams Spear Fisher Relationship Specialty Start Date End Date Coco Leos PA-C [address] [place], [place] [phone] PCP - General Physician Mortgage Banker 02/17/17 12/15/22 Provider, No-Primary Care [place] PCP - General 12/16/22 documented as of this encounter
--- OUTSIDE RECORDS SUMMARY | 2024-11-23 00:14 | XMS_ITS | Encounter Summary ---
Author Organization [facility] Care Address [address] [place] [address] Phone Care Team Providers Care Rough Patcher Name Role Phone Coco Leos PA-C Primary Care Provider [phone] Reason for Visit * Reason Comments Patient Reported Reason For Visit Encounter Details Date Type Department Care Team (Late st Contact Info) Description 10/20/2017 12:20 PM ELECTRONICS PROCESSOR Lab Only [facility] [address] [place] [phone] Coco Leos PA-C [address] [place], [place] [phone] Lab Services, [place] Social History Tobacco Use Types Packs/Day Years [...] Total Score: 0 10/20/20 17 9:51 AM ELECTRONICS PROCESSOR documented as of this encounter Care Teams Rough Patcher Relationship Specialty Start Date End Date Coco Leos PA-C [address] [place], [place] [phone] PCP - General Physician Securities Consultant 02/17/17 12/15/22 documented as of this encounter
--- OUTSIDE RECORDS SUMMARY | 2024-11-23 00:14 | XMS_ITS | Encounter Summary ---
Author Organization [facility] Care Address [address] [place] [address] Phone Care Team Providers Care Physical Science Teacher Name Role Phone Coco Leos PA-C Primary Care Provider [phone] Provider, No-Primary Care Primary Care Provider Unavailable Encounter Details Date Type Department Care Team (Late st Contact Info) Description 01/04/2018 Pharmacy Visit RX [facility] [address] [place] [phone] Social History Tobacco Use Types Packs/Day [...] Depression Total Score: 12 018 12:31 PM MACHINE SHOP LEAD MAN PHQ-2 Depression Total Score: 5 11/16/19 18 12:31 PM MACHINE SHOP LEAD MAN documented as of this encounter Care Teams Physical Science Teacher Relationship Specialty Start Date End Date Coco Leos PA-C [address] [place], [place] [phone] PCP - General Physician Inspector [employer] Products 02/17/17 12/15/22 Provider, No-Primary Care [place] PCP - General 12/16/22 documented as of this encounter
--- OUTSIDE RECORDS SUMMARY | 2024-11-23 00:14 | XMS_ITS | Encounter Summary ---
Author Organization [facility] Care Address [address] [place] [address] Phone Care Team Providers Care Petrographer Name Role Phone Coco Leos PA-C Primary Care Provider [phone] Reason for Visit * Reason Comments Patient Reported Reason For Visit Pt wit h chronic low back pain, had injury in April, now with pain radiating into LLE anterior thigh. CT of spine without changes noted other than stable fracture - no nerve compression. Encounter Details Date Type Department Care Team (Latest Contact Info) Description 10/19/2017 8:10 AM MEDICAL STAFF SERVICES COORDINATOR - 10/19/2017 11:59 PM [facility] Hospital Encounter Medical [facility] - Neurology - Lab [address] [place] [id number] Rickey Boone MD [address] [place], [place] [phone] Gurjit Mccartney [address] [place], [place] [phone] Discharge Disposition: Home or Self Care Social [...] needed. 35.44 g 11 01/12/2017 5:22 PM MEDICAL STAFF SERVICES COORDINATOR 01/12/2017 omeprazole 20 mg enteric coated capsule [...] daily. 30 capsule 11 10/11/2017 12:12 PM MEDICAL STAFF SERVICES COORDINATOR 09/22/2017 7 gabapentin 100 mg capsuleIndicatio ns:neuropathic pain Take 2 capsules (200 mg total) by mouth at bedtime. 60 capsule 11 10/11/2017 12:12 PM MEDICAL STAFF SERVICES COORDINATOR 08/09/2017 7 naloxone 1 mg/mL injection syringe [...] daily. Earliest Fill Date: 10/11/17 60 tablet 10/11/2017 12:12 PM MEDICAL STAFF SERVICES COORDINATOR 10/11/2017 7 oxyCODONE-acetam inophen 10-325 mg per tabletIndication s:Other chronic pain Take 1 tablet by mouth every 4 hours as needed for Pain. Earliest Fill Date: 10/11/17 120 tablet 10/11/2017 12:12 PM MEDICAL STAFF SERVICES COORDINATOR 10/11/2017 7 propranolol 80 mg XR capsuleIndicatio ns:Increased frequency of headaches,Post concussive syndrome Take 1 capsule (80 mg total) by mouth daily. 30 capsule 2 10/11/2017 12:12 PM MEDICAL STAFF SERVICES COORDINATOR 08/09/2017 7 documented as of this encounter Procedure Notes * Stacey Rangel - 10/19/2017 11:19 AM CSTAssociated Order(s): EMG Reason for Request: Chronic LBP, now radiating into LLE anterior thigh. Requested by: Coco Leos MD Staff Physician: Gurjit Mccartney MD Date of Service: 10/19/17 Please see complete F-15 report to be scanned in under Media Tab. EMG patient intake form has been completed and reviewed. CAL STAFF SERVICES COORDINATOR documented in this encounter Plan of Treatment [...] As long as needed Video/Handout: [email or web address] Pain Management - Exercise Pain Management No Coco Leos PA-C Note: Exercise: General Aerobic ?? Duration: 3 to 5 days per week for 20 minutes per day ?? Intensity: Moderate Strengthening: neither Back nor General (for widespread pain) nor Shoulder ?? Intensity: Moderate ?? Duration: 2 to 4 days per week ?? Instructions: See attached documentation for details Video/Handout: [email or web address] documented as of this encounter Procedures Procedure Name Priority Date/Time Associated Diagnosis Comments EMG Routine 10/19/2017 11:20 AM MEDICAL STAFF SERVICES COORDINATOR Nerve pain documented in this encounter Results * EMG (10/19/2017 11:20 AM MEDICAL STAFF SERVICES COORDINATOR) Narrative Stacey Rangel - 10/19/2017 11:20 AM MEDICAL STAFF SERVICES COORDINATOR Stacey Rangel ? 10/19/2017 11:20 AM Reason for Request: ??Chronic LBP, now radiating into LLE anterior thigh. ?? Requested by: Coco Leos MD Staff Physician: Gurjit Mccartney MD Date of Service: 10/19/17 Please see complete F-15 report to be scanned in under Media Tab. EMG patient intake form has been completed and reviewed. us Coco Leos PA-C EMG ORDERABLES Final Result documented in this encounter Visit Diagnoses Diagnosis Nerve pain Neuralgia, neuritis, and radiculitis, unspecified Chronic bilateral low back pain, with sciatica presence unspecified documented in this encounter Additional Health Concerns Assessment Noted Time PHQ-2 Depression Total Score: 0 08/09/20 17 9:37 AM CDT documented as of this encounter Care Teams Petrographer Relationship Specialty Start Date End Date Coco Leos PA-C [address] [place] [address] PCP - General Physician Bench Worker Hollow Handle 02/17/17 12/15/22 documented as of this encounter
--- OUTSIDE RECORDS SUMMARY | 2024-11-23 00:14 | XMS_ITS | Encounter Summary ---
Author Organization [facility] Care Address [address] [place] [address] Phone Care Team Providers Care Material Handler Floorperson Name Role Phone Coco Leos PA-C Primary Care Provider [phone] Reason for Visit * Reason Comments Follow-up 4 wk rtn 45 min Encounter Details Date Type Department Care Team (Late st Contact Info) Description 10/20/2017 11:00 AM PROCESS CONTROLS TECHNICIAN Office Visit [facility] [address] [place] [phone] [place] [address] [place], [place] [phone] Coco Leos PA-C [address] [place], [place] [phone] Social History Tobacco Use Types Packs/Day Years [...] Sign Reading Time Taken Comments Blood Pressure 119/75 10/20/2017 9:38 AM PROCESS CONTROLS TECHNICIAN Pulse 73 10/20/2017 9:38 AM PROCESS CONTROLS TECHNICIAN Temperature 36.4 ??C (97.5 ??F) 10/20/2017 9:30 AM CS T Respiratory Rate - - Oxygen Saturation - - Inhaled Oxygen Concentration - - Weight 88.3 kg (194 lb 10.7 oz) 10/20/2017 9:30 AM PROCESS CONTROLS TECHNICIAN Height - - Body Mass Index 27.56 09/29/2017 2:08 PM PROCESS CONTROLS TECHNICIAN documented in this encounter Patient Instructions * Discharge Instructions* Coco Leos PA-C - 10/20/2017 11:55 AM PROCESS CONTROLS TECHNICIAN Medication changes: STOP Gabapentin. Increase duloxetine, stop 30 mg, start 40 mg. Decrease propranolol, stop 80 mg, start 60 mg. Follow up in 5-6 weeks. Medications ordered/refilled this visit Medications ??? DULoxetine 40 mg XR capsule ??? propranolol 60 mg XR capsule ESS CONTROLS TECHNICIAN documented in this encounter Progress Notes * Coco Leos PA-C - 10/20/2017 11:00 AM CST Clinic Note Encounter Date: 10/20/2017 Subjective: Chief Complaint: Chief Complaint Patient presents with ??? Follow-up 4 wk rtn 45 min History of Present Illness:Edilberto Hawley is a 62 y.o. Established pt whom I am familiar with, presents to the Department of Family Medicine [facility] for 1 month follow up chronic pain management and post concussion syndrome. Pleasant 61-year-old male with chronic pain on chronic narcotic contract with me since Dec 2016. Hewas previously followed by a physician in [place] and past records have been obtained, reviewed and are scanned into media portion of the chart. In April he suffered an injury at work resulting in lumbar spine fracture, head laceration and shoulder injury. Still being followed by [facility] in [place]. Since that incident he has been having left lumbar radicular symptoms and L3-L4 pattern to the level of the knee. He was also having symptoms consistent with postconcussion syndrome including headaches, dizziness, fatigue, memory problems, concentration problems. He did have a Brain MRI through [facility] in and it was normal. He had neuropsych testing completed 09/08/17; testing did not conclude post- concussion deficits andbelieve he is cognitively back to baseline. They advised working with a psychologist as part of hischronic pain management plan and felt he was depressed r/t chronic pain. He saw pain psychologist last week 10/12/17, notes reviewed today. They do not think they can help him. At last visit with me, 09/22/17 following changes made: Chronic pain medications renewed as previously prescribed. continue baclofen for muscle relaxant as it is less sedating, Advised trying to stop gabapentin to see how he does. He has not stopped this, still taking it nightly. Started duloxetine XR 30 mg for mood and chronic pain. Has not noticed worsening or improvement in mood. Continued propranolol to 80 mg for COYNE, which are doing well. No headaches currently. An EMG was ordered at the suggestion of ortho spine. This was done on Wednesday with abnormal findingswith sensorimotor axonal polyneuropathy. . Reports Wednesday was experiencing low mood, was crying, was going to having brother take to the hospital, denies suicidal ideation or plan. Reports feeling better when he got to the hospital. The other day he had an episode of losing his balance/dizziness. Denies vertigo. Went to his knees and sat for a while and then symptoms resolved, had a single recurrence. Nothing since then. Today, 10/20/2017, no COYNE, sleeping ok with duloxetine, not helping with pain or mood. He is working daily, around noon pain increases. He is taking gabapentin, oxycodone and amitriptyline and baclofen at bed and that seems to be working well. This does allow him to sleep. Since work injury, he has been followed by [facility] in [place] and ortho spine at [facility]. The work-well doctors would like an MRI of his L spine but can't get approved through his workman's comp insurance. Ortho spine did not advise it He has had MRI of head, XR of back, shoulder, CT of spine, MRI of shoulder. CT report is available for my review as ar PT notes and initial ED evaluation. He saw Dr. Fowler in ortho on 09/29/17, notesreviewed today. He is going to see a Dr. Mendez through [facility] in December. He is no longer doing physical therapy, he is doing exercises at home as instructed. He also has A back brace that he wears when pain is very severe. Reports pain is currently at 7/10 most days on his chronic pain regimen. Usually varies from a 6-8/10. He has a long history of chronic pain but since the fall he has new pain of left low back that radiates to the left lower leg around the left anterior leg, does not go past the knee. Previous had lumbar radiculopathy of RLE. Now burning pain in LLE from low back wraps around in L3-4 distribution tothe medial knee. He has PMH of chronic pain, back, shoulders, hands, wrists. He has had numerous surgeries in the past.? He is on chronic narcotic regimen, has been on current regimen for a few years. Started on this by previous PCP in [place]. He is now receiving medications through us and utilizing the [facility]. He reports that he is on bid oxycontin 15 mg with short acting oxycodone for breakthrough pain. He was ondisability for a long time, but went back to work in February 2016. ?? His medications: Gabapentin 100 mg?? - Previousy on 300 mg, but 300 mg dose was too high and it made him too tired and dizzy and then he can't work. This was decreased to 100 mg and he is now taking 200 mg dose. ?? Amitriptyline now on 75 mg; He was taking amitriptyline 100 mg and the high dose leaves him feelingtoo groggy so this has been reduced to 75 mg. Topical Lidocaine - has started using this and it is helpful. cyclobenzaprine 5 mg - STOPPED, too sedating Baclofen- 10 mg QHS ?? He was previously on naproxen - not taking as it has been bothering his stomach. Atorvastatin - not taking. His chronic pain is located in L shoulder ; shoulders get worse at night. He has L shoulder weakness. He has history of injury RC repair then bad fall with re injury, not surgical. He reports paresthesia of B arms. ?? and Left belt line - burning sensation ?? R hand, R wrist. Morning stiffness, uses topical analgesic - biofreeze.? He has not had back surgeries. He has had epidural injections in back which were very helpful. He does get radicular pain in RLE.?? He had L hip replacement?? Fall 2014. Had 6 month check up in April 2016. Pain here had been minimalsince surgery until recent injury. ??XR done at last visit was stable, no acute changes. Active Problem List with Overview Notes Diagnosis Date Noted ??? Low back pain 09/29/2017 ??? Closed fracture of transverse process of lumbar vertebra with routine healing 05/19/2017 ??? Encounter related to worker's compensation claim 04/16/2017 Back 05/11/2017 ??? 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 [...] mouth at bedtime. 30 tablet 11 ??? cholecalciferol (VITAMIN D3) 2,000 unit capsule [...] History Narrative Mr. 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 Review of Systems As above in HPI Ringing in the ears, Objective: BP 119/75 Pulse 73 Temp 36.4 ??C (97.5 ??F) (Tympanic) Wt 88.3 kg (194 lb 10.7 oz) BMI 27.56 kg/m?? Awake, alert, in no acute distress. Full affect, appropriate mood. VSS PERRLA - EOMI R ear with bandage on. Skin lesions blistered (recently treated by derm with cryo) HRRR no CMR Lungs CTAB BLE with 5/5 strength in flex/extension. Well coordinated gait, antalgic, stiff when standing, The following are the results of tests done from the visit on 10/20/17 VITAMIN B12 Value Value Units Vitamin B12 464 211 - 946 pg/mL Assessment/Plan: Pleasant 61-year-old male with chronic pain on chronic narcotic contract with injury at work in April resulting in lumbar spine fracture, head laceration and shoulder injury. Still being followed by work [facility] clinic in [place]. Since that incident he is having left lumbar radicular symptoms andL3-L4 pattern to the level of the knee. He was having symptoms consistent with postconcussion syndrome including aches, dizziness, fatigue, memory problems, concentration problems. He reports he did have a Brain MRI through [facility] in and it was normal. He also complted neuropsych eval which felt he was back to baseline. They felt he has depression, pt aggrees. Started on duloxetine, symptoms unchanged, but med tolerated without side effects, will increase to 40 mg. Plan to follow up in 6-8 weeks. He has had resolution of headaches with propranolol. Will decrease from 80 to 60 mg and if still going well at follow up will further taper medication. Re: MRI of the lumbar spine, not indicated at this time. Symptoms do not go down to the foot and hehas good strength on exam. EMG suggests sensorimotor axonal polyneuropathy, not radiculopathy. Willcheck labs to eval for cause. May be r/t remote history of ETOH abuse. Chronic pain medications renewed as previously prescribed. continue baclofen as it is less sedating, D/C gabapentin Increase duloxetine XR to 40 mg for mood and chronic pain. Decrease propranolol to 60 mg Patient is to followup with me in 5-6 weeks for reevaluation. Please note that I spent 40 minutes face to face with the patient and > 50% of that was counseling and coordinating of care as noted above. ICD-10-CM ICD-9-CM 1. Chronic bilateral low back pain, with sciatica presence unspecified M54.5 724.2 G89.29 338.29 2. 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 Closed fracture of transverse process of lumbar vertebra with routine healing S32.009D V54.17 ortho spine has released him. 4. rodent exterminator current use of opiate analgesic Z79.891 V58.69 5. Other chronic pain G89.29 338.29 DULoxetine 40 mg XR capsule continue current regimen, to contact pharmacy when due for refills. increase duloxetine. Stop gabapentin. follow up in 5-6 weeks 6. Nonintractable headache, unspecified chronicity pattern, unspecified headache type R51 784.0 propranolol 60 mg XR capsule resolved; continue amitriptyline at night, propranolol in morning, decreasomg to 60 mg. Coco Leos PA-C [facility] [address] [place] [address] ESS CONTROLS TECHNICIAN documented in this encounter Miscellaneous Notes * Addendum Note - Coco Leos PA-C - 10/20/2017 11:00 AM CSTEncounter addended by: Coco Leos PA-C on: 10/28/2017 8:32 AM
Actions taken: Letterstatus changed ESS CONTROLS TECHNICIAN * Addendum Note - Rene Elkins - 10/20/2017 11:00 AM CSTEncounter addended by: Rene Elkins on: 10/28/2017 9:10 AM
Actions taken: Letter status changed ESS CONTROLS TECHNICIAN documented in this encounter Plan of Treatment Not on file documented as of this encounter Procedures Procedure Name Priority Date/Time Associated Diagnosis Comments FOLATE Routine 10/20/2017 12:25 PM PROCESS CONTROLS TECHNICIAN Peripheral sensory-motor axonal polyneuropathy VITAMIN E, SERUM Routine 10/20/2017 12:2 4 PM PROCESS CONTROLS TECHNICIAN Peripheral sensory-motor axonal polyneuropathy VITAMIN B1, WHOLE BLOOD Routine 10/20/2017 12:24 PM PROCESS CONTROLS TECHNICIAN Peripheral sensory-motor axonal polyneuropathy VITAMIN B12 Routine 10/20/2017 12:24 PM PROCESS CONTROLS TECHNICIAN Peripheral sensory-motor axonal polyneuropathy documented in this encounter Results * FOLATE (10/20/2017 12:25 PM PROCESS CONTROLS TECHNICIAN) Folate 8.2 >=4.1 ng/mL 10/20/2017 10:46 PM PROCESS CONTROLS TECHNICIAN [facility] Blood specimen (specimen) Venipuncture / Unknown 10/20/2017 12:25 PM PROCESS CONTROLS TECHNICIAN 10/20/2017 1:48 PM PROCESS CONTROLS TECHNICIAN Narrative [facility] - 10/20/2017 10:46 PM PROCESS CONTROLS TECHNICIAN Normal ?>4.1 ?ng/mL Indeterminant ? 2.2 - 4.1 ng/mL Deficient ? <2.2 ?ng/mL All enriched grains have been fortified with folic acid in the [place] since 1997 and therefore the prevalence of folate deficiency is low (1%). Testing for folate deficiency is strongly discouraged unless profound malnutrition is suspected and other causes of anemia have been excluded. us Coco Leos PA-C CHEMISTRY ORDERABLES Final R esult [facility] [address] [place] [address] * VITAMIN E, SERUM (10/20/2017 12:24 PM PROCESS CONTROLS TECHNICIAN) Vitamin E, Alpha-Tocopherol 6.5 5.5 - 18.0 mg/L 10/27/2017 7:19 AM PROCESS CONTROLS TECHNICIAN [facility] Comment: Test developed and characteristics determined by [facility]. See Compliance Statement B: [email or web address] Vitamin E, Gamma-Tocopherol 1.7 0.0 - 6.0 mg/L 10/27/2017 7:19 AM PROCESS CONTROLS TECHNICIAN [facility] Comment: Performed by [facility], [address] [place] [id number] [email or web address], Jovon Aguirre MD, Lab. Director Blood specimen (specimen) Venipuncture / Unknown 10/20/2017 12:24 PM PROCESS CONTROLS TECHNICIAN 10/20/2017 1:48 PM PROCESS CONTROLS TECHNICIAN Narrative [facility] - 10/27/2017 7:19 AM PROCESS CONTROLS TECHNICIAN Specimen Source: Specimen Start Date: [id number] Coco Leos PA-C MAILOUT - BLOOD Final Result Performing Organization Address [facility] de Phone Number [employer] [phone] * VITAMIN B1, WHOLE BLOOD (10/20/2017 12:24 PM PROCESS CONTROLS TECHNICIAN) Pathologist [facility] Vitamin B1 (Thiamine) 118 70 - 180 nmol/L 10/25/2017 3:06 PM PROCESS CONTROLS TECHNICIAN [facility] Comment: INTERPRETIVE INFORMATION: Vitamin B1, Whole Blood This assay measures the concentration of thiamine diphosphate (TDP), the primary active form of vitamin B1. Approximately 90 percent of vitamin B1 present in whole blood is TDP. Thiamine and thiamine monophosphate, which comprise the remaining 10 percent, are not measured. Test developed and characteristics determined by [facility]. See Compliance Statement B: [employer]/ Performed by [facility], [address] [place] [id number] [email or web address], Jovon Aguirer MD, Lab. Director Blood specimen (specimen) Venipuncture / Unknown 10/20/2017 12:24 PM PROCESS CONTROLS TECHNICIAN 10/20/2017 12:44 PM PROCESS CONTROLS TECHNICIAN Narrative [facility] - 10/25/2017 3:06 PM PROCESS CONTROLS TECHNICIAN Specimen Source: Specimen Start Date: [id number] Coco Leos PA-C MAILOUT - BLOOD Final Result Performing Organization Address [facility] Co de Phone Number [address] [phone] * VITAMIN B12 (10/20/2017 12:24 PM PROCESS CONTROLS TECHNICIAN) Pathologist [facility] [place] Vitamin B12 464 211 - 946 pg/mL 10/20/2017 1:30 PM PROCESS CONTROLS TECHNICIAN [facility] Comment: New analytical immunoassay with different reference range instituted 10/10/2013 AT 830AM Normal ? 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 Closed fracture of transverse process of lumbar vertebra with routine healing [facility] current use of opiate analgesic Encounter for long-term (current) use of other medications Other chronic pain Nonintractable headache, unspecified chronicity pattern, unspecified headache type documented in this encounter Additional Health Concerns Assessment Noted Time PHQ-2 Depression Total Score: 0 10/20/20 17 9:51 AM PROCESS CONTROLS TECHNICIAN documented as of this encounter Care Teams Material Handler Floorperson Relationship Specialty Start Date End Date Coco Leos PA-C [address] [place] [address] PCP - General Physician Business Services Associate 02/17/17 12/15/22 documented as of this encounter
--- OUTSIDE RECORDS SUMMARY | 2024-11-23 00:14 | XMS_ITS | Encounter Summary ---
Author Organization [facility] Care Address [address] [place] [address] Phone Care Team Providers Care Cross Tie Tram Loader Name Role Phone Coco Leos PA-C Primary Care Provider [phone] Reason for Visit * Reason Comments Dizziness Encounter Details Date Type Department Care Team (Late st Contact Info) Description 10/04/2017 [facility] Otolaryngology - Speech and Hearing [address] [place] [phone] Desire Frias, [facility] [address] [place] [address] Social History Tobacco Use Types [...] * Telephone Encounter - Desire Frias - 10/04/2017 2:48 PM CST I called patient to fill out a Balance Questionnaire. I left a message to call me back. Desire Frias M.A. [facility] Ehs Teacher II Director, Audiology Clinic REPAIRER documented in this encounter Plan of Treatment Not on file documented as of this encounter Visit Diagnoses Not on filedocumented in this encounter Additional Health Concerns Assessment Noted Time PHQ-2 Depression Total Score: 0 08/09/20 17 9:37 AM CDT documented as of this encounter Care Teams Cross Tie Tram Loader Relationship Specialty Start Date End Date Coco Leos PA-C [address] [place] [address] PCP - General Physician Organ Grinder 02/17/17 12/15/22 documented as of this encounter
--- OUTSIDE RECORDS SUMMARY | 2024-11-23 00:14 | XMS_ITS | Encounter Summary ---
Author Organization [facility] Care Address [address] [place] [address] Phone Care Team Providers Care Nursing Agency Manager Name Role Phone Coco Leos PA-C Primary Care Provider [phone] Reason for Visit * Reason Comments Patient Reported Reason For Visit post-c oncussion * Internal Referral (D. Within 4 weeks) - Closed Specialty Diagnoses / Procedures Referred By Celine almaguer Referred To Contact Otolaryngology Diagnoses Tinnitus of both ears Balance problem Coco Leos PA-C [address] [place] [address] Phone: tel: fax: [facility] Otolaryngology - General/Rhinology [address] [place] [address] Phone: tel: fax: Referral ID Status Reason Start Date Expiration Date Visits Re quested Visits Authorized [id number] Closed 09/22/2017 1 1 Encounter Details Date Type Department Care Team (Late st Contact Info) Description 11/03/2017 9:00 AM GREEN BUILDING MATERIALS DESIGNER Office Visit [facility] Otolaryngology - General/Rhinology [address] [place] [phone] Froylan Alexis [address] [place], [place] [phone] Social History Tobacco Use Types Packs/Day Years [...] Sign Reading Time Taken Comments Blood Pressure 129/73 11/03/2017 7:46 AM GREEN BUILDING MATERIALS DESIGNER Pulse 86 11/03/2017 7:46 AM GREEN BUILDING MATERIALS DESIGNER Temperature 36 ??C (96.8 ??F) 11/03/2017 7:46 AM GREEN BUILDING MATERIALS DESIGNER Respiratory Rate - - Oxygen Saturation - - Inhaled Oxygen Concentration - - Weight 90.1 kg (198 lb 10.2 oz) 11/03/2017 7:46 AM GREEN BUILDING MATERIALS DESIGNER Height 180.3 cm (5' 11 ) 11/03/2017 7:46 AM GREEN BUILDING MATERIALS DESIGNER Body Mass Index 27.7 11/03/2017 7:46 AM GREEN BUILDING MATERIALS DESIGNER documented in this encounter Progress Notes * Froylan Alexis MD - 11/03/2017 9:00 AM CST Images from the original note were not included. OTOLARYNGOLOGY CLINIC NOTE Encounter date / time: Subjective Chief Complaint: Crickets in ears History of Present Illness: Patient presents for evaluation of worsening tinnitus and hearing after fall in April 2017. In April patient fell from standing off a pump about 4 feet off ground. He fell backwards, put his left arm out and hit the right back of his head. The wound was closed with 2 carolann. He belies he had a concussion. His main complaint today is tinnitus. He hears crickets both sides and hears better out of the right than the left. He has significant history of noise exposure in the past related to occupations. He does not wear ear protection. 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 No history of firearm use. Regarding his tinnitus he does endorse some ringing before accident but notes it is worse now. He has no prior history of trauma to the head other than ruptured eardrum in from scuba diving. Initially he lost hearing with this but it healed and hearing returned to baseline. He denies any heavy NSAID use. He is taking oxycodone daily. He has been evaluated for hearing loss in the and was told he had bilateral high frequency hearing loss estimated at about 50%. He has dizzy spells several times a month, which he associates with sitting up and lasts for about 1 min. He denies vertigo but states that it feels like he is drunkand an earthquake is happening. He does not pass out. Allergies: NKDA PMH: anxiety/depression PSH: tonsillectomy childhood FH: brother with tinnitus, father with late hearing loss SH: worked for [employer], currently working at [employer] Active Problem List Diagnosis Code ??? Health care maintenance Z00.00 ??? Chronic pain G89.29 ??? History of left hip replacement Z96.642 ??? History of repair of left rotator cuff Z98.890 ??? Encounter related to worker's compensation claim 04/16/2017 Back Z02.6 ??? manager intermediate current use of opiate analgesic Z79.891 ??? [...] History Narrative Mr. 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 Review of systems: The following systems were reviewed and negative, positive systems documented in HPI. A 12 point ROS performed and is as per HPI and below, otherwise negative Objective Vitals: BP 129/73 Pulse 86 Temp 36 ??C (96.8 ??F) (Tympanic) Ht 1.803 m (5' 11 ) Wt 90.1 kg(198 lb 10.2 oz) BMI 27.70 kg/m?? Physical Exam: General appearance Alert, cooperative, no acute distress Communication Normal, age-appropriate Head/Face Normocephalic, without obvious abnormality Cranial Nerves CN II-XII intact, facial nerve HB I/ bilaterally Eyes PERRL, EOM's intact. No nystagmus. Kildare-Hallpike negative Ears auricle (AD) - normal EAC (AD) - normal TM (AD) - normal, mobile with insufflation auricle () - normal EAC () - normal TM () - normal and mobile with insufflation Hearing grossly normal. Morgan- midline with 512 and 256 Rinne- AC>BC bilaterally with 512 and 256 Hz forks Nose Ext. Inspection - normal Oral Cavity Lips - normal Dentition - edentulous Mucosa - normal Hard palate - normal Oropharynx Soft palate - normal Tonsils - absent Pharynx/Larynx Normal Neck Supple, thyroid without masses Lymphatic No cervical, submandibular, submental, pre- or post-auricular lymphadenopathy Cardiovascular Well perfused extremities Respiratory Normal effort and excursion, no increased work of breathing Psychiatric Normal affect Neurologic No gross motor abnormalities. CN 2-12 intact bilaterally Procedures: Kildare Hallpike Maneuver negative for nystagmus when testing posterior, lateral, and anterior canals Data reviewed: Past notes and audiogram Assessment Encounter Diagnoses ICD-10-CM ICD-9-CM 1. Tinnitus of both ears H93.13 388.30 2. Balance problem R26.89 781.99 62 y/o M with high frequency SNHL AU. We calculated hearing loss at 43% , 42% AD. His speech discrims are decent. He is a good candidate for hearing aids, which we offered Plan - hearing aids recommended and patient will consider -continue physical therapy for balance problems - follow-up prn Staff Involved: Staff and Resident/Fellow Staff Comments: I interviewed and examined the patient and discussed the management with the resident. I was present for and participated in the entire procedure. I reviewed the resident???s note and agree, except as noted by me. N BUILDING MATERIALS DESIGNER N BUILDING MATERIALS DESIGNER documented in this encounter Plan of Treatment Not on file documented as of this encounter Visit Diagnoses Diagnosis Tinnitus of both ears Unspecified tinnitus Balance problem Other symptoms involving nervous and musculoskeletal systems documented in this encounter Additional Health Concerns Assessment Noted Time PHQ-2 Depression Total Score: 0 10/20/20 17 9:51 AM GREEN BUILDING MATERIALS DESIGNER documented as of this encounter Care Teams Nursing Agency Manager Relationship Specialty Start Date End Date Coco Leos PA-C [address] [place] [phone] PCP - General Physician Community Nutrition Educator 02/17/17 12/15/22 documented as of this encounter
--- OUTSIDE RECORDS SUMMARY | 2024-11-23 00:14 | XMS_ITS | Encounter Summary ---
Author Organization [facility] Care Address [address] [place] [address] Phone Care Team Providers Care Chemistry Lab Instructor Name Role Phone Coco Leos PA-C Primary Care Provider [phone] Provider, No-Primary Care Primary Care Provider Unavailable Encounter Details Date Type Department Care Team (Late st Contact Info) Description 11/25/2017 Pharmacy Visit [facility] [address] [place] [phone] Social History Tobacco Use Types Packs/Day [...] Depression Total Score: 12 018 12:31 PM SYSTEMS SUPPORT OFFICER PHQ-2 Depression Total Score: 5 11/16/19 18 12:31 PM SYSTEMS SUPPORT OFFICER documented as of this encounter Care Teams Chemistry Lab Instructor Relationship Specialty Start Date End Date Coco Leos PA-C [address] [place], [place] [phone] PCP - General Physician System Admin 02/17/17 12/15/22 Provider, No-Primary Care [place] PCP - General 12/16/22 documented as of this encounter
--- OUTSIDE RECORDS SUMMARY | 2024-11-23 00:15 | XMS_ITS | Encounter Summary ---
Author Organization [facility] Care Address [address] [place] [address] Phone Care Team Providers Care Ceo And President Name Role Phone Coco Leos PA-C Primary Care Provider [phone] Provider, No-Primary Care Primary Care Provider Unavailable Encounter Details Date Type Department Care Team (Late st Contact Info) Description 09/08/2017 Pharmacy Visit RX [facility] [address] [place] [phone] Social History Tobacco Use Types Packs/Day [...] documented as of this encounter Care Teams Ceo And President Relationship Specialty Start Date End Date Coco Leos PA-C [address] [place], [place] [phone] PCP - General Physician Outdoor Education Teacher 02/17/17 12/15/22 Provider, No-Primary Care [place] PCP - General 12/16/22 documented as of this encounter
--- OUTSIDE RECORDS SUMMARY | 2024-11-23 00:15 | XMS_ITS | Encounter Summary ---
Author Organization [facility] Care Address [address] [place] [address] Phone Care Team Providers Care Education Supervisor Name Role Phone Coco Leos PA-C Primary Care Provider [phone] Encounter Details Date Type Department Care Team (Late st Contact Info) Description 09/08/2017 Orders/Notes [facility] Orthopedics - Work Injury Recovery [address] [place] [phone] Estevan Johnson MD [address] [place], [place] [phone] Social History Tobacco Use Types Packs/Day Years [...] as of this encounter Progress Notes * Davina Blanco - 09/08/2017 8:45 AM CDT Placed order to save external images to [facility]. documented in this encounter Plan of Treatment [...] long as needed Video/Handout: https://[facility] rehabilitationScoutzie/[employer] Resourceslibrary/qrfsahj-wlrd-cetsfixygs-tens Pain Management - Exercise Pain Management No Coco Leos PA-C Note: Exercise: General Aerobic ?? Duration: 3 to 5 days per week for 20 minutes per day ?? Intensity: Moderate Strengthening: neither Back nor General (for widespread pain) nor Shoulder ?? Intensity: Moderate ?? Duration: 2 to 4 days per week ?? Instructions: See attached documentation for details Video/Handout: [email or web address] rehabilitationScoutzie/[email or web address]-exercise documented as of this encounter Results * EXTERNAL MRI - STORE ONLY (09/08/2017 9:44 AM CDT) Estevan Johnson MD RAD EXTERNAL IMAGES Veronica l Result * EXTERNAL PL FILMS - STORE ONLY (09/08/2017 9:44 AM CDT) us Estevan Johnson MD RAD EXTERNAL IMAGES Veronica l Result documented in this encounter Visit Diagnoses Not on filedocumented in this encounter Additional Health Concerns Assessment Noted Time PHQ-2 Depression Total Score: 0 08/09/20 17 9:37 AM CDT documented as of this encounter Care Teams Education Supervisor Relationship Specialty Start Date End Date Coco Leos PA-C [address] [place] [phone] PCP - General Physician Merchandiser 02/17/17 12/15/22 documented as of this encounter
--- OUTSIDE RECORDS SUMMARY | 2024-11-23 00:15 | XMS_ITS | Encounter Summary ---
Author Organization [facility] Care Address [address] [place] [address] Phone Care Team Providers Care Lead Rider Name Role Phone Coco Leos PA-C Primary Care Provider [phone] Provider, No-Primary Care Primary Care Provider Unavailable Encounter Details Date Type Department Care Team (Late st Contact Info) Description 09/03/2017 Pharmacy Visit RX [facility] [address] [place] [phone] Social History Tobacco Use Types Packs/Day [...] as of this encounter Care Teams Lead Rider Relationship Specialty Start Date End Date Coco Leos PA-C [address] [place], [place] [phone] PCP - General Physician Assistant Sales Manager 02/17/17 12/15/22 Provider, No-Primary Care [place] PCP - General 12/16/22 documented as of this encounter
--- OUTSIDE RECORDS SUMMARY | 2024-11-23 00:15 | XMS_ITS | Encounter Summary ---
Author Organization [facility] Care Address [address] [place] [address] Phone Care Team Providers Care Lapel Padder Name Role Phone Coco Leos PA-C Primary Care Provider [phone] Provider, No-Primary Care Primary Care Provider Unavailable Encounter Details Date Type Department Care Team (Late st Contact Info) Description 08/30/2017 Pharmacy Visit [facility] [address] [place] [phone] Social History Tobacco Use Types Packs/Day [...] documented as of this encounter Care Teams Lapel Padder Relationship Specialty Start Date End Date Coco Leos PA-C [address] [place], [place] [phone] PCP - General Physician Care Tech 02/17/17 12/15/22 Provider, No-Primary Care [place] PCP - General 12/16/22 documented as of this encounter
--- OUTSIDE RECORDS SUMMARY | 2024-11-23 00:15 | XMS_ITS | Encounter Summary ---
Author Organization [facility] Care Address [address] [place] [address] Phone Care Team Providers Care Supervisory Examiner Name Role Phone Coco Leos PA-C Primary Care Provider [phone] Reason for Visit * Reason Comments Patient Reported Reason For Visit Encounter Details Date Type Department Care Team ([facility] st Contact Info) Description 09/08/2017 8:53 AM CDT [facility] - External [address] [place] [phone] Aranza Bradley MD [address] [place], [place] [phone] Social History Tobacco Use Types Packs/Day Years [...] needed. 35.44 g 11 01/12/2017 5:22 PM FINANCIAL SERVICES ASSOCIATE 01/12/2017 omeprazole 20 mg enteric coated capsule Take 20 mg by mouth daily. sennosides (SENEXON) 8.6 mg tablet Take 1 tablet by mouth 2 times daily as needed. amitriptyline 75 mg tablet Take 1 tablet (75 mg total) by mouth at bedtime. 30 tablet 11 09/08/2017 2:35 PM CDT 04/09/2017 8 gabapentin 100 mg capsuleIndicatio ns:neuropathic pain Take 2 capsules (200 mg total) by mouth at bedtime. 60 capsule 11 10/11/2017 12:12 PM FINANCIAL SERVICES ASSOCIATE 08/09/2017 7 naloxone 1 mg/mL injection syringe [...] daily. 30 capsule 2 10/11/2017 12:12 PM FINANCIAL SERVICES ASSOCIATE 08/09/2017 7 documented as of this encounter Plan of Treatment Not on file documented as of this encounter Goals Goal Patient Goal Type Associated Problems Recent Progress Patient-Stated? Author Pain Management - Transcutaneous Electrical Nerve Stimulation (TENS) Pain Management No Kies, Coco O, PA-C Note: Transcutaneous Electrical Nerve Stimulation (TENS) Unit: Device: Modulated Dual Channel TENS unit (AccuRelief recommended) Frequency: Modulated (P6 recommended for AccuRelief) Electrode Placement: See handout for instructions Duration: 30 minutes, 3-4 times per day while active Intensity: Strong but comfortable Expected length of use: As long as needed Video/Handout: https://[facility] centerTransEnterixemory [facility]/Alignment Acquisitionslibrary/acmhstt-zgkb-xjxyidhyxc-tens Pain Management - Exercise Pain Management No Coco Leos PA-C Note: Exercise: General Aerobic ?? Duration: 3 to 5 days per week for 20 minutes per day ?? Intensity: Moderate Strengthening: neither Back nor General (for widespread pain) nor Shoulder ?? Intensity: Moderate ?? Duration: 2 to 4 days per week ?? Instructions: See attached documentation for details Video/Handout: https://[facility] centerTransEnterixemory [facility]/[employer]/bcsznlj-vfkk-lcafhkqatq-exercise documented as of this encounter Procedures Procedure Name Priority Date/Time Associated Diagnosis Comments EXTERNAL MRI - STORE ONLY Routine 09/08/2017 9:44 AM CDT documented in this encounter Results * EXTERNAL MRI - STORE ONLY (09/08/2017 9:44 AM CDT) us Estevan Johnson MD RAD EXTERNAL IMAGES Veronica l Result documented in this encounter Visit Diagnoses Not on filedocumented in this encounter Additional Health Concerns Assessment Noted Time PHQ-2 Depression Total Score: 0 08/09/20 17 9:37 AM CDT documented as of this encounter Care Teams Supervisory Examiner Relationship Specialty Start Date End Date Coco Leos PA-C [address] [place], [place] [phone] PCP - General Physician Polisher Hand 02/17/17 12/15/22 documented as of this encounter
--- OUTSIDE RECORDS SUMMARY | 2024-11-23 00:15 | XMS_ITS | Encounter Summary ---
Author Organization [facility] Care Address [address] [place] [address] Phone Care Team Providers Care Airplane Gas Tank Liner Assembler Name Role Phone Coco Leos PA-C Primary Care Provider [phone] Reason for Visit * Reason Comments Patient Reported Reason For Visit WC RTN BACK, L2, L3, L4 TRANSVERSE PROCESS FRACTURES, PRIOR L5 - S1 FORAMINAL NARROWING, DOI 04/16/2017 Encounter Details Date Type Department Care Team (Late st Contact Info) Description 09/29/2017 1:30 PM CHARCOAL KILN BURNER Office Visit [facility] Recovery [address] [place] [address] Floyd Fowler MD [address] [place], [place] [phone] Social History Tobacco Use Types Packs/Day Years [...] Sign Reading Time Taken Comments Blood Pressure 122/78 09/29/2017 2:08 PM CHARCOAL KILN BURNER Pulse 62 09/29/2017 2:08 PM CHARCOAL KILN BURNER Temperature 35.7 ??C (96.3 ??F) 09/29/2017 2:08 PM CS T Respiratory Rate - - Oxygen Saturation - - Inhaled Oxygen Concentration - - Weight 88.5 kg (195 lb 1.7 oz) 09/29/2017 2:08 P M CHARCOAL KILN BURNER Height 179 cm (5' 10.47 ) 09/29/2017 2:08 PM CHARCOAL KILN BURNER Body Mass Index 27.62 09/29/2017 2:08 PM CHARCOAL KILN BURNER documented in this encounter Progress Notes * Floyd Fowler MD - 09/29/2017 1:30 PM CST Clinic Note Encounter Date: 09/29/2017 Subjective: CC: follow-up s/p fall, workman's compensation injury History of Present Illness/Past History Edilberto Hawley is a 62 y.o. male who presents to clinic for follow-up of a workman's comp injury on 04/16/2017. Patient describes an event at work where another employee rolled a pipe when patient wasn't ready, and patient lost footing and fell onto back. Patient was found to have L1-L3 tp fractures as well as a compression deformity at L3. Patient describes continued back pain that progresses throughout the day. Patient has worst pain at low back, with burning pain on anterior left thigh. Patient states that pain is worse than last visit. Burning pain does not go below knee. Lying flat on back makes pain worse. Patient cannot think of a position that makes it feel better. Patient also desc ribes left arm pain that he attributes to a rotator cuff injury. Patient returned to work two weeks ago, and states that he cried during work because of this low back pain pain. Patient has been on light duty. 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 Per patient, [employer] is paying patient to work at [employer]. Patient also has a history of back pain including right lower extremity radicular pain. Patient hashad previous epidural steroid injections for this that were helpful. Patient is also being seen forsyncopal events by other providers including [facility] , [facility] Medicine at [facility], and has had n europsychological assessment. Comprehensive neuropsychological evaluation revealed that patient hadnormal, intact cognitive functioning. ROS: A 10 point review of systems was completed and negative, except as per below Patient Active Problem List Diagnosis ??? Health care maintenance ??? Chronic pain ??? History of left hip replacement ??? History of repair of left rotator cuff ??? Encounter related to worker's compensation claim 04/16/2017 Back ??? half-way current use of opiate analgesic ??? Closed fracture of transverse process of lumbar vertebra with routine healing WC Hx Current Outpatient Prescriptions Medication Sig Dispense Refill ??? amitriptyline 75 mg tablet Take 1 tablet (75 mg total) by mouth at bedtime. 30 tablet 11 ??? baclofen 10 mg tablet Take 1 tablet (10 mg total) by mouth at bedtime. 30 tablet 11 ??? cholecalciferol (VITAMIN D3) 2,000 unit capsule Take 2,000 Units by mouth daily. ??? DULoxetine 30 mg XR capsule Take 1 capsule (30 mg total) by mouth daily. 30 capsule 11 ??? gabapentin 100 mg capsule Take 2 capsules (200 mg total) by mouth at bedtime. 60 capsule 11 ??? lidocaine 5 % [...] daily. Earliest Fill Date: 09/08/17 60 tablet 0 ??? oxyCODONE-acetaminophen 10-325 mg per tablet Take 1 tablet by mouth every 4 hours as needed forPain. Earliest Fill Date: 09/08/17 120 tablet 0 ??? propranolol 80 mg XR capsule Take 1 capsule (80 mg total) by mouth daily. 30 capsule 2 ??? sennosides (SENEXON) 8.6 mg tablet Take 1 tablet by mouth 2 times daily as needed. No current facility-administered medications for this visit. No Known Allergies Past Surgical History: Procedure Laterality Date ??? ELBOW SURGERY Left ??? JOINT REPLACEMENT ??? REVISION TOTAL HIP ARTHROPLASTY Left ??? SHOULDER SURGERY ??? TONSILLECTOMY ??? UPPER ENDOSCOPY ??? VASECTOMY Review of SystemsA partial ROS was filled out by the patient. Answers supplied were: New Symptoms: No All systems have been reviewed and reported negative except: Constitutional: Trouble sleeping Eyes: No symptoms reported. Ears: Ringing in ears (tinnitus), Nose: No symptoms reported. Throat: Dry mouth, Hoarseness, Cardiovascular: No symptoms reported. Respiratory: No symptoms reported. Gastrointestinal: - Stomach: Heart burn, Hard to swallow, - Bowels: No symptoms reported. Genitourinary: No urinary symptoms reported. No genital symptoms reported. Musculoskeletal: Joint pain, Muscle pain, Lower back pain, Leg pain, Arm weakness, Integumentary: No symptoms reported Neurological: Dizziness, Frequent headaches, Poor memory, Trouble concentrating, Numbness or tingling of an extremity (arm/leg), Psychiatric: Feeling down or depressed, Stress, Endocrine: No symptoms reported. Hematologic/Lymphatic: No symptoms reported. Allergic/Immunologic: No symptoms reported. Objective: BP 122/78 Pulse 62 Temp 35.7 ??C (96.3 ??F) (Tympanic) Ht 1.79 m (5' 10.47 ) Wt 88.5 kg (195 lb 1.7 oz) BMI 27.62 kg/m?? Body mass index is 27.62 kg/m??. Physical Exam WC Physical Exam BP 122/78 Pulse 62 Temp 35.7 ??C (96.3 ??F) (Tympanic) Ht 1.79 m (5' 10.47 ) Wt 88.5 kg (195 lb 1.7 oz) BMI 27.62 kg/m?? BMI: 27.62 kg/(m^2) Physical Exam General: alert, oriented, cooperative, no distress, appears stated age Head: normocephalic, atraumatic Eyes: Pupils equal, EOM intact, sclera anicteric Chest: full and equal chest rise bilaterally, unlabored respirations, no audible wheezes or stridor Heart: regular rate and rhythm as determined by pulses Skin: Warm, dry, intact without any evidence of lesions Spine: Inspection: Alignment intact, no areas of swelling or erythema Palpation: Tender to palpation over left paraspinal musculature Lower extremities: Sensation: intact to light touch from L2-S1 dermatomal distribution bilaterally Pulses: dorsalis pedis, posterior tibialis 2+ Reflexes: Patella: R: 2+ L: 2+ Achilles: R: 2+ L: 2+ Motor strength: Iliopsoas: R: 5/5 L: 5/5 Quadriceps: R: 03/19 L: 5/ Hamstrings: R: 03/19 L: 5 Tibials anterior: R: 03/19 L: 5 Gastrocsoleus: R: 03/19 L: 5 EHL: R: 03/19 L: 03/19 FHL: R: 03/19 L: 5 Other: Straight leg rise on the left causes increased low back pain Babinski: downgoing bilaterally Clonus: None Gait : Slow normal gait, non-Trendelenburg Imaging: Radiographs of lumbar spine were obtained and reveal stable appearing L3 compression deformity as well as L1-L3 right transverse process fractures Assessment: Edilberto Hawley is a 62 y.o. male who presents for follow-up of a work injury sustained 04/16/2017 after he fell onto his back at [employer]. Patient was found to have an L3 compression deformity as well as L1-L3 right transverse process fractures. Patient has continued low back pain with left anterior burning thigh pain. Patient has been on light duty work, current restrictions included no driving, 10 pound lifting restriction Plan: Encounter Diagnoses ICD-10-CM ICD-9-CM 1. Low back pain M54.5 724.2 Staff Physician Comments Edilberto returns for follow-up. I have not seen him since the summer. In fact he has not been back [facility] for over [facility] months. At the last visit when he was here we suggested follow-up in a month.Presumably he has been seeing other providers before coming back to see us today. He complains of pain all over. On examination he has widespread and diffuse pain to even light palpation. His gait isquite antalgic. I did take x-rays today and his L3 compression fracture appears to be healed. As far as his fracture is concerned I would submit that he is likely at MMI from this injury. In addition, I would not be inclined to place restrictions on him for this particular back injury. At this time I have not scheduled him for follow-up Teaching Statement I have interviewed and examined the patient and confirm the pertinent findings. I have discussed the case with the resident/fellow and agree with the findings and plan as documented. Staff Involved Staff and Resident/Fellow Floyd Fowler MD Department of Orthopedics & Rehabilitation [phone] Procedure Note None Luis Sauceda MD COAL KILN BURNER COAL KILN BURNER documented in this encounter Plan of Treatment Not on file documented as of this encounter Procedures Procedure Name Priority Date/Time Associated Diagnosis Comments L SPINE AP & LATERAL STANDING Routine 09/29/2017 1:54 PM CHARCOAL KILN BURNER Low back pain documented in this encounter Results * L SPINE AP & LATERAL STANDING (09/29/2017 1:54 PM CHARCOAL KILN BURNER) Anatomical Region Laterality Modality Spine RAD MSK modality Impressions 09/29/2017 2:45 PM CHARCOAL KILN BURNER Findings / Impression: There are 5 lumbar type vertebrae. L1-L3 right transverse process fractures reported on prior CT not clearly visualized. L3 compression deformity appear grossly stable since the prior. Multilevel facet hypertrophy, moderate to severe at L3-L4, L4/L5, and L5-S1, grossly stable. Narrative 09/29/2017 2:45 PM CHARCOAL KILN BURNER Procedure: L SPINE AP & LATERAL STANDING [...] t documented in this encounter Visit Diagnoses Diagnosis Low back pain- Primary Lumbago Closed fracture of transverse process of lumbar vertebra with routine healing Encounter related to worker's compensation claim 04/16/2017 Back Other general medical examination for administrative purposes Chronic bilateral low back pain, with sciatica presence unspecified documented in this encounter Additional Health Concerns Assessment Noted Time PHQ-2 Depression Total Score: 0 08/09/20 9:37 AM CDT documented as of this encounter Care Teams Airplane Gas Tank Liner Assembler Relationship Specialty Start Date End Date Coco Leos PA-C [address] [place], [place] [phone] PCP - General Physician Gastroenterology Technician 02/17/17 12/15/22 documented as of this encounter
--- OUTSIDE RECORDS SUMMARY | 2024-11-23 00:15 | XMS_ITS | Encounter Summary ---
Author Organization [facility] Care Address [address] [place] [address] Phone Care Team Providers Care Hhas Name Role Phone Coco Leos PA-C Primary Care Provider [phone] Reason for Visit * Reason Comments Patient Reported Reason For Visit Patient Reported Reason For Visit Encounter Details Date Type Department Care Team (Latest Contact Info) Description 09/22/2017 12:17 PM WASTE WATER TREATMENT PLANT OPERATOR - 09/22/2017 11:59 PM [facility] Hospital Encounter [facility] [facility] - Radiology [address] [phone] Karen Cruz MD [address] [place] [address] Discharge Disposition: Home or Self [...] needed. 35.44 g 11 01/12/2017 5:22 PM WASTE WATER TREATMENT PLANT OPERATOR 01/12/2017 omeprazole 20 mg enteric coated capsule [...] daily. 30 capsule 11 10/11/2017 12:12 PM WASTE WATER TREATMENT PLANT OPERATOR 09/22/2017 7 gabapentin 100 mg capsuleIndicatio ns:neuropathic pain Take 2 capsules (200 mg total) by mouth at bedtime. 60 capsule 11 10/11/2017 12:12 PM WASTE WATER TREATMENT PLANT OPERATOR 08/09/2017 7 naloxone 1 mg/mL injection syringe [...] daily. 30 capsule 2 10/11/2017 12:12 PM WASTE WATER TREATMENT PLANT OPERATOR 08/09/2017 7 documented as of this encounter Plan of Treatment Not on file documented as of this encounter Procedures Procedure Name Priority Date/Time Associated Diagnosis Comments HIP AP & LAUENSTEIN LEFT Routine 09/22/2017 12:34 PM WASTE WATER TREATMENT PLANT OPERATOR Left hip pain documented in this encounter Results * HIP AP & LAUENSTEIN LEFT (09/22/2017 12:34 PM WASTE WATER TREATMENT PLANT OPERATOR) Anatomical Region Laterality Modality lower extremity Computed Radiogr aphy Impressions 09/22/2017 3:21 PM WASTE WATER TREATMENT PLANT OPERATOR Findings / Impression: No acute fracture or dislocation. Stable left total hip arthroplasty without radiographic evidence of complication. Narrative 09/22/2017 3:21 PM WASTE WATER TREATMENT PLANT OPERATOR Procedure: HIP AP & LAUENSTEIN LEFT Clinical Indication: Left hip pain, fall Comparison: 04/19/2017 Procedure Note Aranza Bradley MD - 09/22/2017 Procedure: HIP AP & LAUENSTEIN LEFT Clinical Indication: Left hip pain, fall Comparison: 04/19/2017 IMPRESSION Findings / Impression: No acute fracture or dislocation. Stable left total hip arthroplasty without radiographic evidence of complication. us Coco Leos PA-C RAD GEN ORDERABLES Final Res ult documented in this encounter Visit Diagnoses Diagnosis Left hip pain Pain in joint, pelvic region and thigh documented in this encounter Additional Health Concerns Assessment Noted Time PHQ-2 Depression Total Score: 0 08/09/20 17 9:37 AM CDT documented as of this encounter Care Teams Hhas Relationship Specialty Start Date End Date Coco Leos PA-C [address] [place] [id number] PCP - General Physician Station Baggage Porter 02/17/17 12/15/22 documented as of this encounter
--- OUTSIDE RECORDS SUMMARY | 2024-11-23 00:15 | XMS_ITS | Encounter Summary ---
Author Organization [facility] Care Address [address] [place] [address] Phone Care Team Providers Care Cracker Off Name Role Phone Coco Leos PA-C Primary Care Provider [phone] Provider, No-Primary Care Primary Care Provider Unavailable Encounter Details Date Type Department Care Team (Late st Contact Info) Description 09/07/2017 Pharmacy Visit [facility] [address] [place] [phone] Social History Tobacco Use Types Packs/Day [...] documented as of this encounter Care Teams Cracker Off Relationship Specialty Start Date End Date Coco Leos PA-C [address] [place], [place] [phone] PCP - General Physician Annual Campaign Manager 02/17/17 12/15/22 Provider, No-Primary Care [place] PCP - General 12/16/22 documented as of this encounter
--- OUTSIDE RECORDS SUMMARY | 2024-11-23 00:15 | XMS_ITS | Encounter Summary ---
Author Organization [facility] Care Address [address] [place] [address] Phone Care Team Providers Care Peat Shredder Tender Name Role Phone Coco Leos PA-C Primary Care Provider [phone] Reason for Visit * Reason Comments Patient Reported Reason For Visit Patient Reported Reason For Visit Encounter Details Date Type Department Care Team (Latest Contact Info) Description 07/21/2017 2:08 PM CDT - 07/21/2017 11:59 PM CDT Hospital Encounter [facility] - Radiology - Musculoskeletal [address] [place] [phone] Aranza Bradley MD [address] [place], [place] [phone] Discharge Disposition: Home or Self Care Social [...] this encounter Medications at Time of Discharge cholecalciferol (VITAMIN D3) 2,000 unit capsule Take 2,000 Units by mouth daily. lidocaine 5 % ointmentIndicati ons:Low back pain with radiation, right Apply topically 2 times daily as needed. 35.44 g 11 01/12/2017 5:22 PM TUBE MAKER 01/12/2017 omeprazole 20 mg enteric coated capsule Take 20 mg by mouth daily. sennosides (SENEXON) 8.6 mg tablet Take 1 tablet by mouth 2 times daily as needed. amitriptyline 75 mg tablet Take 1 tablet (75 mg total) by mouth at bedtime. 30 tablet 11 09/08/2017 2:35 PM CDT 04/09/2017 8 cyclobenzaprine 10 mg tablet Take 10 mg by mouth at bedtime. 07/19/2014 7 gabapentin 100 mg capsuleIndicatio ns:Other chronic pain Take 1 capsule (100 mg total) by mouth at bedtime. 30 capsule 11 01/12/2017 5:22 PM TUBE MAKER 01/12/2017 7 naloxone 1 mg/mL injection syringe (2 [...] total) by mouth 2 times daily. 60 tablet 07/09/2017 10:00 AM CDT 07/09/2017 7 oxyCODONE-acetam inophen 10-325 mg per tabletIndication s:Other chronic pain Take 1 tablet by mouth every 4 hours as needed for Pain. 120 tablet 07/09/2017 10:00 AM CDT 07/09/2017 7 propranolol 60 mg XR capsuleIndicatio ns:Increased frequency of headaches,Post concussive syndrome Take 1 capsule (60 mg total) by mouth daily. 30 capsule 2 07/09/2017 10:00 AM CDT 07/09/2017 7 documented as of this encounter Plan of Treatment Not on file documented as of this encounter Procedures Procedure Name Priority Date/Time Associated Diagnosis Comments L SPINE AP & LATERAL STANDING Routine 07/21/2017 2:20 PM CDT Back pain documented in this encounter Results * L SPINE AP & LATERAL STANDING (07/21/2017 2:20 PM CDT) Anatomical Region Laterality Modality Spine RAD MSK modality Impressions 07/21/2017 4:43 PM CDT Findings / Impression: The right L1 and L2 transverse process fractures have unchanged alignment. Compression deformity of L3 vertebral body is unchanged with mild retrolisthesis of L2 on L3. No new abnormality. Mild multilevel degenerative change most prominent at T12-L1 and L5-S1. Moderate to severe facet degenerative changes at L3-L4, L4-L5, and L5-S1. Narrative 07/21/2017 4:43 PM CDT Procedure: L SPINE AP & LATERAL STANDING Clinical Indication: Lumbar spine fractures, evaluate for alignment. Comparison: Lumbar spine radiograph 06/09/2017, 04/19/2017, and CT lumbar spine 04/16/2017. Procedure Note Aranza Bradley MD - 07/21/2017 Procedure: L SPINE AP & LATERAL STANDING Clinical Indication: Lumbar spine fractures, evaluate for alignment. Comparison: Lumbar spine radiograph 06/09/2017, 04/19/2017, and CT lumbar spine 04/16/2017. IMPRESSION Findings / Impression: The right L1 and L2 transverse process fractures have unchanged alignment. Compression deformity of L3 vertebral body is unchanged with mild retrolisthesis of L2 on L3. No new abnormality. Mild multilevel degenerative change most prominent at T12-L1 and L5-S1. Moderate to severe facet degenerative changes at L3-L4, L4-L5, and L5-S1. us Floyd Fowler MD RAD GEN ORDERABLES Final Resul t documented in this encounter Visit Diagnoses Diagnosis Back pain Backache, unspecified documented in this encounter Additional Health Concerns Assessment Noted Time PHQ-2 Depression Total Score: 0 04/09/20 17 2:55 PM CDT documented as of this encounter Care Teams Peat Shredder Tender Relationship Specialty Start Date End Date Coco Leos PA-C [address] [place] [id number] PCP - General Physician Hospital Staff Pharmacist 02/17/17 12/15/22 documented as of this encounter
--- OUTSIDE RECORDS SUMMARY | 2024-11-23 00:15 | XMS_ITS | Encounter Summary ---
Author Organization [facility] Care Address [address] [place] [address] Phone Care Team Providers Care Mining Helper Name Role Phone Coco Leos PA-C Primary Care Provider [phone] Reason for Visit * Reason Comments Follow-up f/u in 2 weeks for c oncussion, urinary issues Encounter Details Date Type Department Care Team (Late st Contact Info) Description 08/09/2017 10:15 AM CDT Office Visit [facility] [address] [place] [phone] [place] [address] [place], [place] [phone] Coco Leos PA-C [address] [place], [place] [id number] Social History Tobacco Use Types Packs/Day Years [...] Sign Reading Time Taken Comments Blood Pressure 147/72 08/09/2017 9:36 AM CDT Pulse 86 08/09/2017 9:36 AM CDT Temperature - - Respiratory Rate - - Oxygen Saturation - - Inhaled Oxygen Concentration - - Weight 85.2 kg (187 lb 13.3 oz) 08/09/2017 9:36 AM CDT Height - - Body Mass Index 26.27 07/21/2017 2:31 PM CDT documented in this encounter Patient Instructions * Discharge Instructions* Coco Leos PA-C - 08/09/2017 10:33 AM CDT You have an appointment scheduled for memory testing on 09/08/17 at 8 am. Please reschedule if you need to. This testing will likely take 4 hours. Continue to follow up with [facility]. You can try Claritin (generic is loratadine) for allergies, nasal steroid spray, flonase or nasocort. STOP cyclobenzaprine (generic flexeril), I am changing your muscle relaxer to baclofen Increase gabapentin to 2 pills at bedtime. Propranolol for headache prevention, dose increased from 60 mg to 80 mg. documented in this encounter Progress Notes * Coco Leos PA-C - 08/09/2017 10:15 AM CDT Clinic Note Encounter Date: 08/09/2017 Subjective: Chief Complaint: Chief Complaint Patient presents with ??? Follow-up f/u in 2 weeks for concussion, urinary issues History of Present Illness:Edilberto Hawley is a 61 y.o. Established pt whom I am familiar with, presents to the Department of Family Medicine [facility] for 1 month follow up chronic pain management and post concussion syndrome. He was supposed to follow up 2 weeks ago, but did not make it to that appointment. Pleasant 61-year-old male with chronic pain on chronic narcotic contract with recent injury at workresulting in lumbar spine fracture, head laceration and shoulder injury. Still being followed by [employer] [facility] in [place]. Since that incident he is now having left lumbar radicular symptoms and L3-L4 pattern to the level of the knee. He also is having symptoms consistent with postconcussion syndrome including aches, dizziness, fatigue, memory problems, concentration problems. He did havea Brain MRI through [facility] in and it was normal. I Reviewed postconcussive syndrome with the patient. - Scat 3 on 07/09/17 was 77 and was positive for 19 of 22 symptoms. - SCAT 3 08/09/2017 was 88 and + 20/22 symptoms. He did see his physician through [facility] after our visit who has kept him off work since that visit and trying to take it easy. He is taking propranolol as prescribed and has noticed headaches are not as severe, but he still has major issues with concentration, memory. He has follow up with her on 08/17/17. His cognitive testing was not good. I referred him for neuropsych eval and this has been scheduled for 09/08/17. Re: MRI of the lumbar spine, I prefer to wait until he is seen orthospine again which will happen in a few weeks. As his symptoms do not go down to the foot and he has good strength on exam and does not have right leg symptoms I feel comfortable monitoring his symptoms. If they fail to improve uponcompletion of physical therapy or he has worsening symptoms I would defer ordering an MRI at that time. He had an MRI in January of 2017, however this was prior to that accident. He did have a CT of the spine after the accident. His injury at work,he sustained a lumbar spine fracture, scalp laceration and injured his left shoulder. He has been followed by [facility] in [place] and ortho spine at [facility]. The [facility] doctors would like an MRI of his L spine but can't get approved through his workman's comp insurance. He has had MRI of head, XR of back, shoulder, CT of spine, MRI of shoulder. CT report is available for my review as ar PT notes and initial ED evaluation. He was to see Dr. Fowler in ortho, but this visit was rescheduled due to Dr. Fowler not available, in surgery. He is doing physical therapy at [facility] twice a weak and balance therapy at [facility]. He now has a TENS unit that he is using. He also has A back brace that he wears when pain is very severe. Reports pain is currently at 5/10 most days on his chronic pain regimen. Usually varies from a 6-8/10. He has a long history of chronic pain but since the fall he has new pain of left low back that radiates to the left lower leg around the left anterior leg. Previous had lumbar radiculopathy of RLE. Now burning pain in LLE from low back wraps around in L3-4 distribution to the medial knee. Now stating that it doesn't go past the thigh. He did have some bladder control issues during sleep after the accident, but not occurring currently. He currently has frequency and urgency, this is not new. Feels like he empty's but is not. He has PMH of chronic pain, back, shoulders, hands, wrists. He has had numerous surgeries in the past.? He is on chronic narcotic regimen, has been on current regimen for a few years. Started on this by previous PCP in [place]. He is now receiving medications through us and utilizing the [facility]. He reports that he is on bid oxycontin 15 mg with prn oxycodone for breakthrough pain. He was on disability for a long time, but went back to work in February 2016. ?? His medications: Gabapentin 100 mg?? - Previousy on 300 mg, but 300 mg dose was too high and it made him too tired and dizzy and then he can't work. This was decreased to 100 mg and he is taking this dose. ?? Amitriptyline now on 75 mg; He was taking amitriptyline 100 mg and the high dose leaves him feelingtoo groggy so this has been reduced to 75 mg. Not taking daily at this time, takes about every other day. ?? Topical Lidocaine - has started using this and it is helpful. ?? cyclobenzaprine 5 mg, when working he does not take in the week as it is sedating. ?? He was previously on naproxen - [...] check up in April 2016. Pain here has been minimalsince surgery until recently. ?? Recently had colonoscopy for history of polyps: HISTORY OF COLON POLYPS - Had attempted colonoscopy, but inadequate prep; this has been rescheduled. ?? He drinks a lot of coca-cola, he used to drink 2-3L/da, now drinking 32-48 oz/day. ?? 1. Recommend to check US RUQ with liver doppler as well as labs for HCV-Ab and HBsAg to r/o liverdisease and clinical portal hypertension He did complete RUQ US, no indication of portal HTN. Reviewed these results with pt today. Active Problem List with Overview Notes Diagnosis Date Noted ??? Closed fracture of transverse process of lumbar vertebra with routine healing 05/19/2017 ??? Encounter related to worker's compensation claim 04/16/2017 Back 05/11/2017 ??? residential current use of opiate analgesic 05/11/2017 ??? [...] Prostate Cancer Screening 2003 ??? Zoster Vaccine 2013 ??? Influenza Vaccine: Seasonal (1) 06/15/2017 ??? Colonoscopy 05/11/2018 ??? Lipid Disorder Screening 01/12/2022 ??? Td Vaccine 04/16/2027 ??? Tdap Vaccine Completed ??? HCV Screening Completed Past Surgical History: Procedure Laterality Date ??? ELBOW SURGERY Left ??? JOINT REPLACEMENT ??? REVISION TOTAL HIP ARTHROPLASTY Left ??? SHOULDER SURGERY ??? TONSILLECTOMY ??? UPPER ENDOSCOPY ??? VASECTOMY Family History Problem Relation Age of Onset ??? Bleeding Prob Mother Current Outpatient Prescriptions Medication Sig Dispense Refill ??? amitriptyline 75 mg tablet Take 1 tablet (75 mg total) by mouth at bedtime. 30 tablet 11 ??? baclofen 10 mg tablet Take 1 tablet (10 mg total) by mouth at bedtime. 30 tablet 11 ??? cholecalciferol (VITAMIN D3) 2,000 unit capsule Take 2,000 Units by mouth daily. ??? gabapentin 100 mg capsule Take 2 [...] mg total) by mouth 2 times daily. Fill at IR pharmacy 60 tablet 0 ??? oxyCODONE-acetaminophen 10-325 mg per tablet Take 1 tablet by mouth every 4 hours as needed forPain. Fill at IR pharmacy 120 tablet 0 ??? propranolol 80 mg [...] History Narrative Mr. 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 Review of Systems As above in HPI Objective: BP 147/72 Pulse 86 Wt 85.2 kg (187 lb 13.3 oz) BMI 26.27 kg/m?? Awake, alert, in no acute distress. Full affect, appropriate mood. VSS SCAT 3 total symptoms 19/22; symptom severity score 77/132. Concentration difficulties - Cognitive assessment 3/5 Immediate memory 14/15 Concentration 0/5 Balance: can not walk in tandem gait. Can stand on 1 foot for a few seconds each. rhomberg - swaying, severe, stopped before a minute Skin lesions on R ear and L neck. HRRR no CMR Lungs CTAB RLE with 5/5 strength in flex/extension. See media for photos of skin and copy of SCAT 3 assessment. No results found for this visit on 08/09/17. Assessment/Plan: Pleasant 61-year-old male with chronic pain on chronic narcotic contract with recent injury at workresulting in lumbar spine fracture, head laceration and shoulder injury. Still being followed by [facility] in [place]. Since that incident he is now having left lumbar radicular symptoms and L3-L4 pattern to the level of the knee. He also is having symptoms consistent with postconcussion syndrome including aches, dizziness, fatigue, memory problems, concentration problems. He reports he did have a Brain MRI through [facility] in and it was normal and they didn't know what do for his headaches. I Reviewed postconcussive syndrome with the patient. Scat 3 was performed and a score 88 and is positive for 20 of 22 symptoms, wose then at last visit.. Copy of this is in the media portion of the chart. His cognitive testing was not good, but is better than at last visit. I referred him for neuropsycheval which is scheduled for 09/08/17 Re: MRI of the lumbar spine, I prefer to wait until he is seen orthospine again which will happen in a few weeks. As his symptoms do not go down to the foot and he has good strength on exam and does not have right leg symptoms I feel comfortable monitoring his symptoms. If they fail to improve uponcompletion of physical therapy or he has worsening symptoms I would defer ordering an MRI at that time. He had an MRI in January of 2017, however this was prior to that accident. He did have a CT of the spine after the accident. Patient is to followup with me in 5-6 weeks for reevaluation. Chronic pain medications renewed as previously prescribed. Changed to baclofen as it is less sedating, Increase gabapentin to 200 mg QHS Increase propranolol to 80 mg. Flu shot today. Please note that I spent over 45 minutes face to face with the patient and > 50% of that was counseling and coordinating of care as noted above. ICD-10-CM ICD-9-CM 1. Post concussive syndrome F07.81 310.2 propranolol 80 mg XR capsule I recommend brain and body rest. follow up with me in 5-6 weeks. 2. Other chronic pain G89.29 338.29 oxyCODONE-acetaminophen 10-325 mg per tablet oxyCODONE (OXYCONTIN) 15 mg XR tablet baclofen 10 mg tablet 3. Low back pain with radiation, right M54.41 724.2 oxyCODONE (OXYCONTIN) 15 mg XR tablet 4. Other chronic pain G89.29 338.29 oxyCODONE-acetaminophen 10-325 mg per tablet oxyCODONE (OXYCONTIN) 15 mg XR tablet baclofen 10 mg tablet continue current medication, increase gabapenting,change to baclofen 5. Increased frequency of headaches R51 784.0 propranolol 80 mg XR capsule take amitriptyline at night, propranolol in morning, increasing to 80 mg. BRAIN rest recommended. NO SCREEN time. Coco Leos PA-C [facility] Department of Family Medicine [address] [place] [address] documented in this encounter Plan of Treatment Not on file documented as of this encounter Visit Diagnoses Diagnosis Post concussive syndrome- Primary Postconcussion syndrome Other chronic pain Low back pain with radiation, right Increased frequency of headaches Headache documented in this encounter Additional Health Concerns Assessment Noted Time PHQ-2 Depression Total Score: 0 08/09/20 17 9:37 AM CDT documented as of this encounter Care Teams Mining Helper Relationship Specialty Start Date End Date Coco Leos PA-C [address] [place] [address] PCP - General Physician Mixing Machine Tender 02/17/17 12/15/22 documented as of this encounter
--- OUTSIDE RECORDS SUMMARY | 2024-11-23 00:15 | XMS_ITS | Encounter Summary ---
Author Organization [facility] Care Address [address] [place] [address] Phone Care Team Providers Care Staff Midwife Name Role Phone Coco Leos PA-C Primary Care Provider [phone] Provider, No-Primary Care Primary Care Provider Unavailable Encounter Details Date Type Department Care Team (Late st Contact Info) Description 08/27/2017 Pharmacy Visit [facility] [address] [place] [phone] Social History Tobacco Use Types Packs/Day [...] documented as of this encounter Care Teams Staff Midwife Relationship Specialty Start Date End Date Coco Leos PA-C [address] [place], [place] [phone] PCP - General Physician Client Application Support Specialist 02/17/17 12/15/22 Provider, No-Primary Care [place] PCP - General 12/16/22 documented as of this encounter
--- OUTSIDE RECORDS SUMMARY | 2024-11-23 00:15 | XMS_ITS | Encounter Summary ---
Author Organization [facility] Care Address [address] [place] [address] Phone Care Team Providers Care Clothes Designer Name Role Phone Coco Leos PA-C Primary Care Provider [phone] Provider, No-Primary Care Primary Care Provider Unavailable Encounter Details Date Type Department Care Team (Late st Contact Info) Description 08/25/2017 Pharmacy Visit [facility] [address] [place] [phone] Social History Tobacco Use Types Packs/Day [...] documented as of this encounter Care Teams Clothes Designer Relationship Specialty Start Date End Date Coco Leos PA-C [address] [place], [place] [phone] PCP - General Physician Cofounder 02/17/17 12/15/22 Provider, No-Primary Care [place] PCP - General 12/16/22 documented as of this encounter
--- OUTSIDE RECORDS SUMMARY | 2024-11-23 00:15 | XMS_ITS | Encounter Summary ---
Author Organization [facility] Care Address [address] [place] [address] Phone Care Team Providers Care Director Of Accreditation Name Role Phone Coco Leos PA-C Primary Care Provider [phone] Reason for Visit * Reason Comments Medication Refill Encounter Details Date Type Department Care Team (Late st Contact Info) Description 08/30/2017 Refill [facility] [address] [facility] [address] [place] [phone] Maxine Pope [address] [place] [address] Social History Tobacco Use Types [...] * Telephone Encounter - Dayanna Escamilla - 08/31/2017 8:05 AM CDT Pharmacy is requesting refill of: Oxycodone, Oxycodone-APAP Last visit: 08/09/17 Next visit: 09/22/17 Last written: 08/09/17 Prescription destination: [facility] 08/31/17 17:46 I will drop off at [facility] pharmacy. DMcGukirsten PATINO * Telephone Encounter - Maxine Pope RPh - 08/30/2017 8:29 PM CDT [facility] Pain Medication Refill Service - Pharmacist's Note: Edilberto Hawley is enrolled in the Pain Medication Refill Service and requests renewal of Oxycodone CR 15mg, #60, and Oxycodone/APAP 5/325mg, #120,for back, L shoulder and LLE pain. Level of Analgesia He reports an average pain score after medication of 6-7/10 in the last week. Functional Activity Improved abilities: walking, working and general activity Adverse Events Denies over-sedation, confusion, falls and constipation. Aberrant Behavior Last fill 08/09. There are no unexpected entries on the PHOTO ENGRAVER and refill frequency is every 28-30 days. Opioid agreement signed 01/12/17 with Coco Leos. Urine Drug Screen: 07/09/17 confirmed (+) OC, norOC, OM, & norOM, as expected Respiratory Depression Risk Score >3; anti-depressant and long acting opioid prescribed, emergency visit within last 6 months and history of opioid abuse (UI ETC 05/12; hx/o METH, MELECIO) Morphine equivalent dose is 105 mg/day. investigator internal revenue is available. Emergency intranasal naloxoneis warranted at this time. Prescriptions pended for Coco Leos, last visit: 08/09; return visit: 09/22. Please send orders to [facility] pharmacy for pick-up. Thank you, Maxine Pope, Cristina, [facility], [facility] documented in this encounter Plan of Treatment Not on file documented as of this encounter Visit Diagnoses Diagnosis Other chronic pain documented in this encounter Additional Health Concerns Assessment Noted Time PHQ-2 Depression Total Score: 0 08/09/20 17 9:37 AM CDT documented as of this encounter Care Teams Director Of Accreditation Relationship Specialty Start Date End Date Coco Leos PA-C [address] [place] [address] PCP - General Physician Management Architect 02/17/17 12/15/22 documented as of this encounter
--- OUTSIDE RECORDS SUMMARY | 2024-11-23 00:15 | XMS_ITS | Encounter Summary ---
Author Organization [facility] Care Address [address] [place] [address] Phone Care Team Providers Care Field Auto Appraiser Name Role Phone Coco Leos PA-C Primary Care Provider [phone] Reason for Visit * Reason Comments Patient Reported Reason For Visit Encounter Details Date Type Department Care Team (Late st Contact Info) Description 07/09/2017 9:40 AM CDT Lab Only [address] [phone] [place] [address] [place], [place] [phone] Social History Tobacco Use Types Packs/Day Years [...] Procedure Name Priority Date/Time Associated Diagnosis Comments VITAMIN D, 25-HYDROXY Routine 07/09/2017 9:36 AM CDT Closed fracture of lumbar vertebra with routine healing, unspecified fracture morphology, unspecified lumbar vertebral level, subsequent encounter documented in this encounter Results * VITAMIN D, 25-HYDROXY (07/09/2017 9:36 AM CDT) Vitamin D, 25-Hydroxy 24 20 - 80 ng/mL 07/09/2017 10:37 AM CDT [facility] Comment: This assay accurately quantifies the sum of 25-hydroxyvitamin D3 and 25-hydroxyvitamin D2. Endocrine Society, [place] of Medicine (IOM), and World Health Organization (WHO) guidelines designate 25-hydroxyvitamin D plasma concentrations below 20 ng/mL as deficient, based on increased frequency of adverse outcomes (e.g., osteoporotic fractures). 25-Hydroxyvitamin D reference ranges are a controversial topic, with some authorities suggesting optimal concentrations should be 30 ng/mL or higher based on correlations of 25-hydroxyvitamin D plasma concentrations with physiological parameters such as parathyroid hormone or calcium concentrations. However, optimal 25- hydroxyvitamin D concentrations greater than 20 ng/mL may be considered for specific disease conditions. Vitamin D toxicity is uncommon but may be seen at 25-hydroxyvitamin D concentrations greater than 150 ng/mL. Blood specimen (specimen) Venipuncture / Unknown 07/09/2017 9:36 AM CDT 07/09/2017 9:53 AM CDT us Coco Leos PA-C CHEMISTRY ORDERABLES Final R esult [facility] [address] [address] documented in this encounter Visit Diagnoses Diagnosis Closed fracture of lumbar vertebra with routine healing, unspecified fracture morphology, unspecified lumbar vertebral level, subsequent encounter documented in this encounter Additional Health Concerns Assessment Noted Time PHQ-2 Depression Total Score: 0 04/09/20 17 2:55 PM CDT documented as of this encounter Care Teams Field Auto Appraiser Relationship Specialty Start Date End Date Coco Leos PA-C [address] [place] [address] PCP - General Physician Airport Skilled Maintenance Supervisor 02/17/17 12/15/22 documented as of this encounter
--- OUTSIDE RECORDS SUMMARY | 2024-11-23 00:15 | XMS_ITS | Encounter Summary ---
Author Organization [facility] Care Address [address] [place] [address] Phone Care Team Providers Care Dry Cleaner Presser Name Role Phone Stephanie Giron PA-C Primary Care Provider [phone] Reason for Referral * Internal Referral (D. Within 4 weeks) - Closed Specialty Diagnoses / Procedures Referred By Celine t Referred To Contact Otolaryngology Diagnoses Tinnitus of both ears Balance problem Stephanie Giron PA-C [address] [place] [address] Phone: tel: fax: [facility] Otolaryngology - General/Rhinology [address] [place] [address] Phone: tel: fax: Referral ID Status Reason Start Date Expiration Date Visits Re quested Visits Authorized [id number] Closed 09/22/2017 1 1 Question Answer Priority: D. Within 4 weeks Requested Action: Referral (Transfer of care) Faculty Physician/Staff Clinician requesting consultation: STEPHANIE GIRON [[id number]] Comments Clinical Question to be answered: pt with long history of tinitus, worse after injury in April. Also with balance issues. ? Meniere's please evaluate and treat. ING UNIT OPERATOR Reason for Visit * Reason Comments Knee Pain 5-6wk rtn Encounter Details Date Type Department Care Team (Late st Contact Info) Description 09/22/2017 10:15 AM PULLING UNIT OPERATOR Office Visit [facility] [address] [place] [phone] [address] [place] [address] Stephanie Giron PA-C [address] [place] [address] Social History Tobacco Use Types Packs/Day Years [...] Sign Reading Time Taken Comments Blood Pressure 112/77 09/22/2017 10:39 AM PULLING UNIT OPERATOR Pulse 88 09/22/2017 10:39 AM PULLING UNIT OPERATOR Temperature - - Respiratory Rate - - Oxygen Saturation - - Inhaled Oxygen Concentration - - Weight 86.8 kg (191 lb 5.8 oz) 09/22/2017 10:39 AM PULLING UNIT OPERATOR Height - - Body Mass Index 27.09 09/22/2017 8:26 AM PULLING UNIT OPERATOR documented in this encounter Patient Instructions * Discharge Instructions* Stephanie Giron PA-C - 09/22/2017 11:36 AM PULLING UNIT OPERATOR Please try stopping the gabapentin to see if makes a difference. If you sleep better with it, you can restart it. Start duloxetine 30 mg once a day in the morning. Continue other medications as ordered, contact the pharmacy for refills. I referred to ear, nose, throat I ordered vit D level Hip XR EMG, nerve test of left leg. ING UNIT OPERATOR documented in this encounter Progress Notes * Stephanie Giron PA-C - 09/22/2017 10:15 AM CST Clinic Note Encounter Date: 09/22/2017 Subjective: Chief Complaint: Chief Complaint Patient presents with ??? Knee Pain 5-6wk rtn History of Present Illness:Edilberto Ellington Chandan is a 61 y.o. Established pt whom I am familiar with, presents to the Department of Family Medicine [facility] for 1 month follow up chronic pain management and post concussion syndrome. Pleasant 61-year-old male with chronic pain on chronic narcotic contract with recent injury at workresulting in lumbar spine fracture, head laceration and shoulder injury. Still being followed by [facility] in [place]. Since that incident he is now having left lumbar radicular symptoms and L3-L4 pattern to the level of the knee. He also is having symptoms consistent with postconcussion syndrome including aches, dizziness, fatigue, memory problems, concentration problems. He did have a Brain MRI through [facility] in and it was normal. I Reviewed postconcussive syndrome with the patient. At last visit 08/09/17 following changes made: Chronic pain medications renewed as previously prescribed. Changed to baclofen as it is less sedating, Increase gabapentin to 200 mg QHS Increase propranolol to 80 mg. He was referred for neuropsych testing. This was completed 09/08/17, notes reviewed today. Testing did not conclude post-concussion deficits and believe he is cognitively back to baseline. They advised working with a psychologist as part of his chronic pain management plan. They felt he was depressed r/t chronic pain. [facility] He is taking gabapentin and amitriptyline and baclofen at bed and that seems to be working well. This does allow him to sleep. The recommendations at that visit from pt's AVS: Decrease/stop gabapentin - ineffective dose ENT evaluation for tinnitus/balance Other doctors could consider x-ray Left hip for ongoing pain, Lyrica (instead of gabapentin), possible nerve EMG. He returned to work on Wednesday. He is having a lot of pain with this, was tearful. He reports that the headaches have resolved, he is not having them. He reports he needs refills on vit D and lidocaine ointment. Re: MRI of the lumbar spine, I [...] CT of the spine after the accident. Symptoms have been stable. His injury at work,he sustained a lumbar spine fracture, scalp laceration and injured his left shoulder. He has been followed by [facility] [place] and ortho spine at [facility]. The [facility] would like an MRI [...] Fowler not available, in surgery. He is no longer doing physical therapy, [...] receiving medications through us and [facility]. He reports that he is [...] started using this and it is helpful. Needs new prescription for this?? cyclobenzaprine 5 mg - STOPPED, changed to BACLOFEN Baclofen- 10 mg QHS ?? He was [...] had been minimalsince surgery until recent injury. ?? Active Problem List with Overview Notes Diagnosis Date Noted ??? Closed fracture of transverse process of lumbar vertebra with routine healing 05/19/2017 ??? Encounter related to worker's compensation claim 04/16/2017 Back 05/11/2017 ??? spinning mule tender current use of opiate analgesic 05/11/2017 ??? [...] History Narrative Mr. 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 Review of Systems As above in HPI Ringing in the ears, Objective: BP 112/77 Pulse 88 Wt 86.8 kg (191 lb 5.8 oz) BMI 27.09 kg/m?? Awake, alert, in no acute distress. Full affect, appropriate mood. VSS PERRLA - + nystagmus in horizontal gaze to rht right, bounce to left TM WNL Balance: can not walk in tandem gait. Can stand on 1 foot for a few seconds each. rhomberg - swaying, severe, stopped before a minute Skin lesions on R ear and L neck. HRRR no CMR Lungs CTAB BLE with 5/5 strength in flex/extension. Study Result Procedure: HIP AP & LAUENSTEIN LEFT ?? Clinical Indication: Left hip pain, fall ?? Comparison: 04/19/2017 ?? IMPRESSION Findings / Impression: No acute fracture or dislocation. Stable left total hip arthroplasty without radiographic evidence of complication. The following are the results of tests done from the visit on 09/22/17 VITAMIN D, 25-HYDROXY Value Value Units Vitamin D, 25-OH 22 20 - 80 ng/mL COMPREHENSIVE METABOLIC PANEL (CMP) Value Value Units Sodium 138 135 - 145 mEq/L Potassium 4.1 3.5 - 5.0 mEq/L Chloride 101 95 - 107 mEq/L CO2 24 22 - 29 mEq/L BUN 11 10 - 20 mg/dL Creatinine 0.9 0.6 - 1.2 mg/dL Glucose 103 (H) 65 - 99 mg/dL Calcium 9.2 8.5 - 10.5 mg/dL Total Protein 7.1 6.0 - 8.0 g/dL Albumin 4.4 3.4 - 4.8 g/dL AST 25 0 - 40 U/L ALP 73 40 - 129 U/L Bilirubin Total 0.7 <=1.2 mg/dL ALT 26 0 - 41 U/L Anion Gap 13 <17 mEq/L Calculated GFR 85 >60 mL/min/1.73 m2 Assessment/Plan: Pleasant 61-year-old male with chronic pain on chronic narcotic contract with recent injury at workresulting in lumbar spine fracture, head laceration and shoulder injury. Still being followed by [facility] in [place]. Since that incident he is now having [...] which felt he was back to baseline. He has had resolution of headaches with propranolol. Will continue for now and consider tapering off at next visit. Re: MRI of the lumbar spine, I prefer to wait until he is seen orthospine again which will happen in a few weeks. As his symptoms do not go down to the foot and he has good strength on exam and does not have right leg symptoms I feel comfortable monitoring his symptoms. He had an MRI in January of 2017, however this was prior to that accident. He did have a CT of the spine after the accident. As advised by orthospine, I am ordered an EMG of LLE. Chronic pain medications renewed as previously prescribed. continue baclofen as it is less sedating, Can try without gabapentin and see how he does. Start duloxetine XR 30 mg for mood and chronic pain. Will look into chronic pain psychologist. Continue propranolol to 80 mg Patient is to followup with me in 4 weeks for reevaluation. Please note that I spent over 45 minutes face to face with the patient and > 50% of that was counseling and coordinating of care as noted above. ICD-10-CM ICD-9-CM 1. Other chronic pain G89.29 338.29 DULoxetine 30 mg XR capsule continue current regimen, to contact pharmacy when due for refills. Add duloxetine. Can try stopping gabapentin, as only using QHS. follow up 1 month. 2. Vitamin D insufficiency E55.9 268.9 VITAMIN D, 25-HYDROXY recheck levels today low normal, advise continued 2,000 units daily. 3. Medication management Z79.899 V58.69 COMPREHENSIVE METABOLIC PANEL (CMP) given polypharmacy, will check CMP today, stable. 4. Tinnitus of both ears H93.13 388.30 INPATIENT CONSULT OTOLARYNGOLOGY - DIVISION UNSPECIFIED referred to ENT for further evaluation, concern for possible meniere's. They will call pt to schedule. 5. Nerve pain M79.2 729.2 EMG Pt can not tolerate higher doses of gabapentin, will try duloxetine before considering lyrica. 6. Left hip pain M25.552 719.45 HIP AP & LANSTEIN LEFT XR of left hip ordered. 7. Increased frequency of headaches R51 784.0 have resolved since starting propranolol 80 mg. continue, will consider reducing dose at follow up. 8. Lumbar radiculopathy, chronic M54.16 724.4 symptoms unchanged, historically on R, but since injury in 04/2017 has LLE symptoms. Please try stopping the gabapentin to see if makes a difference. If you sleep better with it, you can restart it. Start duloxetine 30 mg once a day in the morning. Continue other medications as ordered, contact the pharmacy for refills. I referred to ear, nose, throat I ordered vit D level Hip XR, left. EMG, nerve test of left leg. Stephanie Giron PA-C [facility] Department of Family Medicine [address] [place] [address] ING UNIT OPERATOR documented in this encounter Miscellaneous Notes * Addendum Note - Stephanie Giron PA-C - 09/22/2017 10:15 AM CSTAddended by: STEPHANIE GIRON on: 09/22/2017 05:31 PM Modules accepted: Orders ING UNIT OPERATOR documented in this encounter Plan of Treatment Scheduled Referrals Name Type Priority Associated Diagnoses Order Schedule OUTPATIENT CONSULT OTOLARYNGOLOGY - DIVISION UNSPECIFIED Outpatient Referral Routine Tinnitus of both ears Balance problem 1 Occurrences starting 09/22/2017 until 03/22/2019 documented as of this encounter Procedures Procedure Name Priority Date/Time Associated Diagnosis Comments VITAMIN D, 25-HYDROXY Routine 09/22/2017 12:14 PM PULLING UNIT OPERATOR Vitamin D insufficiency COMPREHENSIVE METABOLIC PANEL (CMP) Routine 09/22/2017 12:14 PM PULLING UNIT OPERATOR Medication management documented in this encounter Results * EMG (10/19/2017 11:20 AM PULLING UNIT OPERATOR) Narrative Stacey Rangel - 10/19/2017 11:20 AM PULLING UNIT OPERATOR Stacey Rangel ? 10/19/2017 11:20 AM Reason for Request: ??Chronic LBP, now radiating into LLE anterior thigh. ?? Requested by: Stephanie Giron MD Staff Physician: Gurjit Mccartney MD Date of Service: 10/19/17 Please see complete F-15 report to be scanned in under Media Tab. EMG patient intake form has been completed and reviewed. us Stephanie RICHEYC EMG ORDERABLES Final Result * HIP AP & LAUENSTEIN LEFT (09/22/2017 12:34 PM PULLING UNIT OPERATOR) Anatomical Region Laterality Modality lower extremity Computed Radiogr aphy Impressions 09/22/2017 3:21 PM PULLING UNIT OPERATOR Findings / Impression: No acute fracture or dislocation. Stable left total hip arthroplasty without radiographic evidence of complication. Narrative 09/22/2017 3:21 PM PULLING UNIT OPERATOR Procedure: HIP AP & LAUENSTEIN LEFT Clinical Indication: Left hip pain, fall Comparison: 04/19/2017 Procedure Note Aranza Bradley MD - 09/22/2017 Procedure: HIP AP & LAUENSTEIN LEFT Clinical Indication: Left hip pain, fall Comparison: 04/19/2017 IMPRESSION Findings / Impression: No acute fracture or dislocation. Stable left total hip arthroplasty without radiographic evidence of complication. us Stephanie ABERNATHY-C RAD GEN ORDERABLES Final Res ult * (ABNORMAL) COMPREHENSIVE METABOLIC PANEL (CMP) (09/22/2017 12:14 PM PULLING UNIT OPERATOR) Sodium 138 135 - 145 mEq/L 09/22/2017 12:54 PM PULLING UNIT OPERATOR [facility] Potassium 4.1 3.5 - 5.0 mEq/L 09/22/2017 12:54 PM PULLING UNIT OPERATOR [facility] Chloride 101 95 - 107 mEq/L 09/22/2017 12:54 PM PULLING UNIT OPERATOR [facility] CO2 24 22 - 29 mEq/L 09/22/2017 12:54 PM PULLING UNIT OPERATOR [facility] BUN (blood urea nitrogen) 11 10 - 20 mg/dL 09/22/2017 12:54 PM PULLING UNIT OPERATOR [facility] Creatinine 0.9 0.6 - 1.2 mg/dL 09/22/2017 12:54 PM PULLING UNIT OPERATOR [facility] Comment: Creatinine switched to enzymatic method on 03/24/2011. ??GFR equation switched to IDMS-traceable MDRD equation on 03/24/2011. Calculated GFR values are not valid in clinical settings where serum creatinine is changing. Glucose 103(H) 65 - 99 mg/dL 09/22/2017 12:54 PM PULLING UNIT OPERATOR [facility] Comment: The Expert Committee on the Diagnosis and Classification of Diabetes has defined impaired fasting glucose as greater than or equal to 100 mg/dL but less than 126 mg/dL. ??(Diabetes Care 28 (Suppl 1) S41,2005) Calcium 9.2 8.5 - 10.5 mg/dL 09/22/2017 12:54 PM PULLING UNIT OPERATOR [facility] Total Protein 7.1 6.0 - 8.0 g/dL 09/22/2017 12:54 PM PULLING UNIT OPERATOR [facility] Albumin 4.4 3.4 - 4.8 g/dL 09/22/2017 12:54 PM PULLING UNIT OPERATOR [facility] AST (Aspartate Aminotransferase) 25 0 - 40 U/L 09/22/2017 12:54 PM PULLING UNIT OPERATOR [facility] Comment: Adult reference ranges updated on 10/10/13 at 830am ALP (Alkaline Phosphatase) 73 40 - 129 U/L 09/22/2017 12:54 PM PULLING UNIT OPERATOR [facility] Bilirubin, Total 0.7 <=1.2 mg/dL 09/22/2017 12:54 PM PULLING UNIT OPERATOR [facility] ALT (Alanine Aminotransferase) 26 0 - 41 U/L 09/22/2017 12:54 PM PULLING UNIT OPERATOR [facility] Comment: The upper limit of [...] data from other diagnostic tests. Anion Gap 13 <17 mEq/L 09/22/2017 12:54 PM PULLING UNIT OPERATOR [facility] eGFR - Calculated 85 >60 mL/min/1. 73 m2 09/22/2017 12:54 PM PULLING UNIT OPERATOR [facility] Blood specimen (specimen) 09/22/2017 12:14 PM PULLING UNIT OPERATOR 09/22/2017 12:27 PM PULLING UNIT OPERATOR us Stephanie Giron PA-C CHEMISTRY ORDERABLES Final R esult [facility] [address] [address] * VITAMIN D, 25-HYDROXY (09/22/2017 12:14 PM PULLING UNIT OPERATOR) Vitamin D, 25-Hydroxy 22 20 - 80 ng/mL 09/22/2017 1:16 PM PULLING UNIT OPERATOR [facility] Comment: This assay accurately quantifies the sum of 25-hydroxyvitamin D3 and 25-hydroxyvitamin D2. Endocrine Society, [place] of Medicine (IOM), and World Health Organization [...] greater than 150 ng/mL. Blood specimen (specimen) 09/22/2017 12:14 PM PULLING UNIT OPERATOR 09/22/2017 12:27 PM PULLING UNIT OPERATOR us Stephanie Giron PA-C CHEMISTRY ORDERABLES Final R esult [facility] [address] [address] documented in this encounter Visit Diagnoses Diagnosis Other chronic pain- Primary Vitamin D insufficiency Unspecified vitamin D deficiency Medication management Encounter for long-term (current) use of other medications Tinnitus of both ears Unspecified tinnitus Nerve pain Neuralgia, neuritis, and radiculitis, unspecified Left hip pain Pain in joint, pelvic region and thigh Increased frequency of headaches Headache Lumbar radiculopathy, chronic Thoracic or lumbosacral neuritis or radiculitis, unspecified Balance problem Other symptoms involving nervous and musculoskeletal systems Left hip pain Pain in joint, pelvic region and thigh Nerve pain Neuralgia, neuritis, and radiculitis, unspecified Chronic bilateral low back pain, with sciatica presence unspecified documented in this encounter Additional Health Concerns Assessment Noted Time PHQ-2 Depression Total Score: 0 08/09/20 17 9:37 AM CDT documented as of this encounter Care Teams Dry Cleaner Presser Relationship Specialty Start Date End Date Stephanie Giron PA-C [address] [place] [id number] PCP - General Physician Captain/Airline Pilot 02/17/17 12/15/22 documented as of this encounter
--- OUTSIDE RECORDS SUMMARY | 2024-11-23 00:15 | XMS_ITS | Encounter Summary ---
Author Organization [facility] Care Address [address] [place] [address] Phone Care Team Providers Care Job Coach Name Role Phone Coco Leos PA-C Primary Care Provider [phone] Reason for Visit * Reason Comments Patient Reported Reason For Visit WC RTN S/P TP FRACTURES OF LUMBAR SPINE Encounter Details Date Type Department Care Team (Late st Contact Info) Description 07/21/2017 2:15 PM CDT Office Visit [facility] Orthopedics - Work Injury Recovery [address] [place] [phone] Floyd Fowler MD [address] [place], [place] [phone] Left without seen Social History Tobacco Use Types Packs/Day Years [...] Reading Time Taken Comments Blood Pressure 122/75 07/21/2017 2:31 PM CDT Pulse 68 07/21/2017 2:31 PM CDT Temperature 36.6 ??C (97.9 ??F) 07/21/2017 2:31 PM CD T Respiratory Rate - - Oxygen Saturation - - Inhaled Oxygen Concentration - - Weight 82.6 kg (182 lb 1.6 oz) 07/21/2017 2:31 P M CDT Height 180.1 cm (5' 10.9 ) 07/21/2017 2:31 PM CD T Body Mass Index 25.47 07/21/2017 2:31 PM CDT documented in this encounter Plan of Treatment Not on file documented as of this encounter Visit Diagnoses Not on filedocumented in this encounter Additional Health Concerns Assessment Noted Time PHQ-2 Depression Total Score: 0 04/09/20 17 2:55 PM CDT documented as of this encounter Care Teams Job Coach Relationship Specialty Start Date End Date Coco Leos PA-C [address] [place] [id number] PCP - General Physician Drop Wire Aligner 02/17/17 12/15/22 documented as of this encounter
--- OUTSIDE RECORDS SUMMARY | 2024-11-23 00:15 | XMS_ITS | Encounter Summary ---
Author Organization [facility] Care Address [address] [place] [address] Phone Care Team Providers Care Accounts Payable Administrator Name Role Phone Coco Leos PA-C Primary Care Provider [phone] Reason for Referral * Internal Referral (Routine) - Closed Specialty Diagnoses / Procedures Referred By Contac t Referred To Contact Orthopaedic Diagnoses History of concussion Low back pain, unspecified back pain laterality, unspecified chronicity, with sciatica presence unspecified Marylou Doan MD [address] [place] [address] Phone: tel: fax: [facility] - Orthopedics - Spine [address] [place] [address] Phone: tel: fax: Referral ID Status Reason Start Date Expiration Date Visits Re quested Visits Authorized [id number] Closed 09/24/2017 1 1 Question Answer Does patient need screening for psychological comorbidities or barriers to pain management? Yes Can patient benefit from improved sleep hygiene? Yes Can patient benefit from stabilization of anxiety, mood, & psychosocial stressors? Yes Faculty Physician/Staff Clinician requesting consultation: MARYLOU DOAN [[id number]] Comments Reason for consultation: headaches and related symptoms in addition to back pain. Has chronic pain but acute different pain after a fall while at work which led to some lumbar spine transverse process fractures. Has seen Dr. Robles who also felt may be of benefit. 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 TEACHER Office Visit [facility] - Work [facility] Recovery [address] [place] [address] Marylou Doan MD [address] [place] [address] Social History Tobacco Use Types Packs/Day Years [...] Sign Reading Time Taken Comments Blood Pressure 143/86 09/22/2017 8:26 AM TRIGONOMETRY TEACHER Pulse 83 09/22/2017 8:26 AM TRIGONOMETRY TEACHER Temperature 35.6 ??C (96.1 ??F) 09/22/2017 8:26 AM CS T Respiratory Rate - - Oxygen Saturation - - Inhaled Oxygen Concentration - - Weight 87.4 kg (192 lb 10.9 oz) 09/22/2017 8:26 AM TRIGONOMETRY TEACHER Height 179 cm (5' 10.47 ) 09/22/2017 8:26 AM TRIGONOMETRY TEACHER Body Mass Index 27.28 09/22/2017 8:26 AM TRIGONOMETRY TEACHER documented in this encounter Patient Instructions * Discharge Instructions* Marylou Doan MD - 09/22/2017 9:45 AM TRIGONOMETRY TEACHER Decrease/discontinue Gabapentin as that likely is not helping at the current dose and higher dose had not been tolerated in the past. For balance issues and ringing in ears, consider ENT (ear, nose, throat) doc evaluation. Your other doctors could consider x-ray left hip for ongoing pain, Lyrica (medication instead of gabapentin), possible nerve test EMG. ONOMETRY TEACHER documented in this encounter Progress Notes * Marylou Doan MD - 09/22/2017 8:30 AM CST Encounter: 09/22/2017 I am seeing the patient at the request of Kiley Todd History of Present Illness: Mr. Edilberto Hawley is a right hand dominant 61 y.o. man who presents for further evaluation of headaches, dizziness, and tinnitus symptoms after sustaining an injury on April 16, 2017. Information gathered herein is from evaluation of the patient as well as review of submitted outside records. Mr. 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 He had already loaded several of them with assistance. During this episode he was in a situation where he could lose hisbalance and tried to get the ict sales assistant to stop but was unable and fell over backwards, slid across a beam, started falling backwards and stuck out his left arm to grab on but all that was there was the engine so he fell backwards, striking his head and back. He reportedly did not lose consciousness. EMS was activated. He was taken to the local ER where scalp laceration was sutured and he had CT scans apparently done. L1, L2, and L3 trasverse process fractures were noted. He was seen by Dr. Goodman from Orthopedics locally and provided a [place] brace. Current symptoms: Mr. Hawley indicates that he has pain in the left low back that feels like burning and has an intensity of 6 out of 10. It is worse at night when he feels like legs getting from the body when he can get burning from back and involving left anterior thigh. He also has some shoulder pain. His headaches have improved. He does not have virtigo symtoms but difficulty with balance. Prior evaluation and treatment: Mr. Hawley has been evaluated by those aforementioned. He eventually was referred to Dr. Fowler at [facility] for his spine issues. He also has shoulder pain and apparently is awaiting separate Orthopedic consultation for that. Meanwhile, given ongoing headaches, dizziness, and tinnitus he was referred to Neuropsychology, Neurology, and balance therapy. He only had a couple of sessions that he reports of balance therapy. His neurology appointment is apparently at [place] [address]. Medications have included Amitriptyline for the headache (which he notes has helped). Imaging and other diagnostics have included MRI of the brain which was reported to show no acute intracranial abnormality, no contrast enhancing lesions, ethmoid and maxillary sinus disease, most severe within the left maxillary sinus where an air-fluid level is present . . . Increased fluid within theleft mastoid air cells, nonspecific. He did see Dr. Robles from Neuropsychology on 09/08/17 with the following report: Comprehensive neuropsychological evaluation indicates normal, intact cognitive functioning. Mr. Hawley has a low average baseline and limited formal education, and his performances on cognitive testing are commensurate with his background and baseline. He had normal memory, speech and language, perception, construction, attention, orientation, concentration, problem-solving, and executive functioning. He does not have any acquired cognitive impairments from the April 2017 accident. He does not have chronic, persistent postconcussion syndrome. Recommendations were made from that visit including working with a health psychologist for his painaffecting his perception of cognitive difficulties. Other: He has chronic pain from sciatica on the right side so is on opiates for that pre-morbidly. His current new symptoms are as mentioned above. Current Outpatient Prescriptions Medication Sig Dispense Refill [...] for this visit. No Known Allergies Past Medical History: Diagnosis Date ??? Acid reflux ??? Chronic pain ??? Esophageal varices without bleeding ??? History of left hip replacement 10/01/2016 2016 ??? History of repair of left rotator cuff 10/01/2016 Patient Active Problem List Diagnosis Date Noted ??? Closed fracture of transverse process of lumbar vertebra with routine healing 05/19/2017 ??? Encounter related to worker's compensation claim 04/16/2017 Back 05/11/2017 ??? 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 Health care maintenance 10/01/2016 ??? Chronic pain 10/01/2016 ??? History of left hip replacement 10/01/2016 ??? History of repair of left rotator cuff 10/01/2016 Past Surgical History: Procedure Laterality Date ??? ELBOW SURGERY Left ??? JOINT REPLACEMENT ??? REVISION TOTAL HIP ARTHROPLASTY Left ??? SHOULDER SURGERY ??? TONSILLECTOMY ??? UPPER ENDOSCOPY ??? VASECTOMY Family History Problem Relation Age of Onset ??? Bleeding Prob Mother ??? 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 - Marital status: Does not smoke. Review of systems: All systems were reviewed and are negative except for: Ears: Dizziness Nose/throat/mouth: Throat problems Respiratory: Coughing, Shortness of breath GI: Heart burn, Hard to swallow Musculoskeletal: Joint pain, Joint stiffness, Muscle pain, Muscle weakness, Arm Pain, Arm Weakness,Leg Pain Neurological: Dizziness, Frequent Headaches Mental Health: Feeling down or depressed, Excessive nervousness Hematologic/lymphatic: Bleed easily Physical Examination: BP 143/86 Pulse 83 Temp 35.6 ??C (96.1 ??F) (Tympanic) Ht 1.79 m (5' 10.47 ) Wt 87.4 kg (192 lb 10.9 oz) BMI 27.28 kg/m?? BMI: 27.09 kg/(m^2) General: Well-developed, well nourished individual who appears in no acute distress. Mental status: Alert and oriented with an appropriate mood and affect. HEENT: Pupils equal, round, reactive to light. Extra-ocular movements intact. Facial expression symmetric. Tongue midline. Soft palate elevation symmetric. Shoulder shrug symmetric (guards some on left secondary to pain). Hearing intact to voice although appears slightly reduced. Wears glasses. Hasa cap on head today. Gait: Antalgic with compensated Trendelenburg on the left. Balance: Romberg is positive, he falls to left immediately after closing eyes. Strength: Muscle strength, bulk, and tone are normal for the major muscle groups of bilateral upperand lower extremities except left hip flexion and abduction is 4/5 with some pain and has trace reduction at left elbow compared to right secondary to some shoulder pain. Shoulder muscles are not tested today. Reflexes: Muscle stretch reflexes are physiologic and symmetric bilateral upper and lower extremities. Circulation: Upper extremity pulses are intact. Skin: No significant abnormalities appreciated during examination. Pulmonary: Breathing is normal. Vision: Patient could read our forms without noted difficulty. Neuro: Cranial nerves II-XII grossly intact. Strength as aforementioned. Rapid alternating movements intact at hands. Romberg as aforementioned. Finger to nose with eyes closed intact. Imaging: MRI of the brain dated 06/17/17 is not available for review but the report impression is as aforementioned. Impression: Encounter Diagnoses ICD-10-CM ICD-9-CM 1. History of concussion Z87.820 V15.52 2. Balance problems R26.89 781.99 3. Tinnitus, unspecified laterality H93.19 388.30 4. Low back pain, unspecified back pain laterality, unspecified chronicity, with sciatica presence unspecified M54.5 724.2 Plan/Recommendations: 1. Given normal MRI of the brain but persisting balance difficulties (as noted on Romberg today) aswell as tinnitus (although improved), we discussed referral to Otolaryngology for evaluation and potential treatment recommendations. He would like to proceed so a consultation request is placed. 2. Regarding headaches, these too have improved. We discussed some medications that are used for prophylaxis for headaches. These often include anti-epileptic medication, anti-depressant medication, and some anti-hypertensive medications. He already is on amitriptyline, gabapentin, and propranolol.The amitriptyline seems to be helping so that medication should be continued. Propranolol is used for a separate condition and no benefit noted in headache. He will continue it for a different condition. 3. Regarding gabapentin, this can be used for different reasons so I'm not sure if was being used to help with headaches or back pain. Regardless, he has not noted dramatic benefit and is only on a low dose, not able to tolerate a higher dose. I suggest he work to get off of this medication. As it is a low dose he can just stop it without a wean if desired. In the future for his back and lower extremity symptoms, one could consider Lyrica if no contraindications but as I am not treating that area I will leave it up to the provider/team managing that area to determine if appropriate. 4. I'll check with the [facility] team to determine if he is supposed to go back to Dr. Fowler as it sounds as though the day he came there was an emergent case for Dr. Fowler (so that he was not able to seeMr. Hawley in follow up). 5. I discussed that perhaps the back/hip pain is coming from his hip on the left side and suggestedx-ray. However, after the visit I noted that priro left hip x-ray had been done. If that is a concern his primary team/work comp physician could refer him to one of the hip orthopedic physicians for a review given the history of prior replacement of that hip. 6.Regarding pain going down the thigh, an EMG could be considered--will leave up to his physicians evaluating that area. 7. We also discussed Dr. Robles's evaluation and recommendation. It appears appropriate to refer Mr. Hawley to Dr. Barth (Health psychologist) for CBT and similar techniques to help with his headaches and subacute pain symptoms. A consult is placed. 8. The only restrictions regarding his prior mild concussion are related to his balance, so no ladder work or working from heights. 9. I'll check in with him again in about six weeks. Staff Involved Staff Only Time spent for today's services 60-65 minutes face to face with the patient, of which at least 35 minutes was spent in face to face counseling and coordination of care. Marylou Doan MD Physical Medicine & Rehabilitation Service Department of Orthopaedics & Rehabilitation [phone] ONOMETRY TEACHER documented in this encounter Miscellaneous Notes * Communication Body - Gisel Dillard - 09/22/2017 8:30 AM CST We saw Edilberto Hawley in Orthopaedics at the [facility] on 09/22/17. Enclosed is a copy of our notes. If you have any questions, please call my office. Sincerely, Marylou Doan MD Clinical Jack Spooler Tender Physical Medicine & Rehabilitation Service [facility] Department of Orthopedics & Rehabilitation [phone] ONOMETRY TEACHER documented in this encounter Plan of Treatment Scheduled Referrals Name Type Priority Associated Diagnoses Order Schedule OUTPATIENT CONSULT ORTHOPAEDICS - SPINE PSYCHOLOGY Outpatient Referral Routine History of concussion Low back pain, unspecified back pain laterality, unspecified chronicity, with sciatica presence unspecified 1 Occurrences starting 09/24/2017 until 03/24/2019 documented as of this encounter Visit Diagnoses Diagnosis History of concussion- Primary Personal history of traumatic brain injury Balance problems Other symptoms involving nervous and musculoskeletal systems Tinnitus, unspecified laterality Low back pain, unspecified back pain laterality, unspecified chronicity, with sciatica presence unspecified documented in this encounter Additional Health Concerns Assessment Noted Time PHQ-2 Depression Total Score: 0 08/09/20 17 9:37 AM CDT documented as of this encounter Care Teams Accounts Payable Administrator Relationship Specialty Start Date End Date Coco Leos PA-C [address] [place], [place] [id number] PCP - General Physician Silica Dry Press Helper 02/17/17 12/15/22 documented as of this encounter
--- OUTSIDE RECORDS SUMMARY | 2024-11-23 00:15 | XMS_ITS | Encounter Summary ---
Author Organization [facility] Care Address [address] [place] [address] Phone Care Team Providers Care Machine Printer Name Role Phone Coco Leos PA-C Primary Care Provider [phone] Reason for Visit * Reason Comments Patient Reported Reason For Visit legal Encounter Details Date Type Department Care Team (Latest Contact Info) Description 09/08/2017 8:00 AM CDT - 09/08/2017 8:52 AM CDT [facility] [address] [place] [phone] Elpidio Robles, PhD [address] [place] [address] [id number] Elpidio Robles Phd - Npsych [facility] [place], [place] [phone] Discharge Disposition: Home or Self Care Social [...] needed. 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 60 capsule 11 10/11/2017 12:12 PM CARTON FOLDER 08/09/2017 7 naloxone 1 mg/mL injection syringe [...] daily. 30 capsule 2 10/11/2017 12:12 PM CARTON FOLDER 08/09/2017 7 documented as of this encounter Procedure Notes * Elpidio Robles, PhD - 09/08/2017 8:00 AM CDTAssociated Order(s): [facility] NEUROPSYCHOLOGY CONSULT - COGNITIVE ASSESSMENT NEUROPSYCHOLOGY CONSULT NOTE REASON FOR REQUEST: Pt with head injury on 04/16/2017. Since then he has been having headaches and memory issues. Had head MRI externally. Suspect post- concussive syndrome. Pt reporting difficulty concentrating and retaining information. Desire cognitive assessment. Of note pt on LONG TIME narcrotic regimen for severe chronic pain, no recent change in this. REQUESTED BY: Coco Leos PA-C DATE OF SERVICE: 09/08/2017 Patient: Edilberto Hawley [facility] #: [id number] Date of Injury: April 16, 2017 Date of Evaluation: September 08, 2017 Date of Report: September 13, 2017 INTRODUCTION AND BACKGROUND Edilberto Hawley was referred for neuropsychological evaluation pursuant to a work-related accident on April 16, 2017. Mr. Hawley was injured when he fell backwards off a truck-trailer and fell onto a metal water pump, striking his back and head. He suffered injuries to his lumbar spine, and an apparent head injury without any loss of consciousness or neurological deficits. Acute head CT was negative for acute parenchymal changes, and follow-up brain MRI (06/17/17) was also negative for parenchymal abnormalities. Mr. Hawley developed complaints of back pain, dizziness, headaches, depression, and cognitive difficulties after the accident. He has had ongoing medical evaluations and treatment for his back problems, and has had ongoing work restrictions. Dr. 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 Also, Mr. Hawley has been diagnosed with postconcussion syndrome, and neuropsychological assessment was recommended. To help clarify whether Mr. Hawley has any ongoing cognitive or behavioral problems related to the accident, we were asked to perform a neuropsychological evaluation.The patient was referred to us by Miguel Earl of the [employer] in [place], [place]. Premorbid Records Mr. Hawley was evaluated on 05/25/83 for an accident in which he suffered exposure to xylene. He suffered virk to his body. He was treated at [facility] and recovered. Mr. Hawley was evaluated in the ED at [facility] on 07/25/16 for right-sided thoracic back pain. He was treated with pain medications. He was seen at [facility] on 09/30/16 for chronic pain complaints. It was noted that he had been on disability ???for a long time,?? but recently was able to go back to work, and this ???improved his mental health.?? Ms. Leos referred him for pain management. Ms. Leos saw him at [facility] on 01/12/17 for follow-up of numerous pain complaints. Referral to the painclinic was recommended. He has chronic opioid medication use. Ms. Leos saw him again on 04/09/17 for pain problems. He has more frequent headaches. He has numerous complaints of chronic pain issues. He uses oxycodone. He ???works through?? his pain, in a physically demanding job. Postmorbid Records Records from [facility] in [place], [place], indicate that Mr. Hawley was seen in the ED on 04/16/17. He apparently was working in a truck bed, lost his balance, and fell backwards about 4feet, landing on a metal water pump and striking his back and head. He had a headache in the ED. Hedenied LOC, and denied dizziness, weakness/numbness, confusion, and mental status changes. He was fully oriented and alert in the ED. He did not have any focal neurological deficits, and neurologicalexam was normal. A head CT was negative for acute parenchymal changes; there was soft tissue swelling noted in the right occipital scalp. X-rays revealed lumbar transverse process fractures, at rightL1, L2, and L3, mildly displaced. He was not diagnosed with traumatic brain injury or concussion. Mr. Hawley was seen in the Occupational Medicine clinic at [facility] on 04/28/17. 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 He denied LOC. He had lumbar fractures. He has a PMH of sleep apnea and arthritis. He had carolann in his right occipital scalp. He was instructed to not return to work yet. His carolann were removed on 05/04/17, without difficulty. Mr. Hawley was seen at [facility] on 05/12/17. It was noted that he had a premorbid history of back pain,treated with ESIs (that were helpful). He currently reports worsening pain since the recent accident. He has a workers??? compensation claim. He was a care home opioid medication user. He was given activity restrictions. Dr. Todd saw him in occupational medicine on 05/19/17. He reported ongoing problems with dizzy spells. Dr. Todd diagnosed him with vertigo. She saw him again on 05/25/17, and he reported increasing balance problems. She also noted that he was depressed. Mr. Hawley was seen in PT on 05/25/17. He reported ongoing balance problems since the accident, with falls. A diagnosis of PCS is provided in these records. Other symptoms reported included dizziness, imbalance, and tinnitus. Mr. Hawley participated in PT. A record from 06/08/17 indicates that he is reporting short- term memory problems, headaches, and disorientation. He missed a PT appointment and blamed this on his memory problems. Dr. [place] saw Mr. Hawley in [facility] Orthopedics on 05/12/17. It was noted that Mr. Hawley had a premorbid history of back pain (e.g., seen at [facility] on 07/25/16 for severe back pain, and treated with KOTA). Mr. Hawley had a left hip replacement on 10/01/16. His neurological status was intact. Dr. 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 He was given work restrictions and advised to not drive while taking sedating medications. Dr. [place] saw the patient in the [facility] ED on 05/12/17. Mr. Hawley had been seen earlier that day in [facility] Orthopedics, and afterwards, had a severe episode of back pain and near-syncope. He returned to the ED. Dr. Lake noted that the patient has had pain ???most of his life,?? and has taken numerous pain medications. Mr. Hawley was worried that Dr. [place] had done something to him at the ortho appointment. Dr. Lake was doubtful about any treatment-related injury. Dr. [place] saw him again on 05/19/17. Mr. Hawley reporting ongoing back pain, and problems with dizziness. He is having frequent headaches and feels depressed. Neurological status was intact. His lumbar fractures were healing normally. Dr. [place] advised him that he could discontinue wearing the back brace. A note from Dr. 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 His lumbar fractures were healing normally. He continued to report back pain. Follow-up with Dr. Todd on 06/08/17 indicated ongoing problems with depression. She diagnosed him with reactive depression and closed head injury with headaches, among other conditions. Follow-up with Dr. Todd on 06/21/17 indicated that a recent brain MRI was negative. Mr. Hawley was quite distraught. He has ongoing head pain. He feels as though his employer is blaming him for the accident. She recommended that he be seen by a psychiatrist and psychologist. A follow-up note on 06/22/17 indicated that the referral for a psychiatrist was denied by the insurance company. He is planning to follow up on this on his own. He is having ongoing problems with dizziness and balance, andDr. Todd recommended a referral to neurology. Another note from 07/20/17 indicated that Mr. Hawley is having ongoing problems with dizziness and ringing in his ears. His PCP is ???very worried about him.?? Dr. Todd saw him on 08/17/17, and noted that he was doing very poorly. He has many problem including headaches, falling, tinnitus, back pain, shoulder pain, and dizziness. Referral for neurological consultation was recommended. Brain MRI on 06/17/17 showed sinus disease but no parenchymal abnormalities. Ms. Dafne PA-C, saw Mr. Hawley on 07/09/17 and recommended that he continue with brain rest and notreturn to work yet. She noted that he was suffering from PCS. He was reporting symptoms of headaches, dizziness, fatigue, and memory and concentration problems. She recommended neuropsychological evaluation. [facility] Identifying Information Edilberto Hawley is a 61-year-old, right-handed (+100) man. 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 Mr. Hawley was unaccompanied to our evaluation. Mr. 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 Records indicatedhe sustained a lumbar spine fracture, scalp laceration, and left shoulder injury. When describing his injury on interview today, Mr. Hawley said he was momentarily dazed, although he denied any lossof consciousness or memory loss associated with this event. Following his injury, he said he was taken to a local hospital via ambulance. He reported undergoing brain imaging studies which were reportedly normal. Mr. Hawley explained that he was discharged home following brief treatment at the hospital, and he said he went back to work two weeks after his injury. He added that he subsequently stopped working due to increased problems with pain, headaches, and concentration difficulties. He also reported problems with forgetfulness, distractibility, and inattentiveness. He said he often losestrack of conversations with others and relies upon written reminders to assist him with rememberingimportant information. Mr. Hawley said these problems started approximately two weeks after his injury in April 2017. He reported ongoing pain in his left shoulder, left leg, left foot, left arm, andlower back. He also reported recurrent headaches. Mr. Hawley???s medical history is significant for chronic pain in his back, shoulders, hands, and wrists; surgical history includes left hip replacement and repair of left rotator cuff. Records indicated that Mr. Hawley has been on a chronic pain management regimen including longstanding use of opioid pain medications for the past several years. Current medications include oxycodone, baclofen, gabapentin, propranolol, and amitriptyline. Mr. Hawley reported a variable mood with intermittent symptoms of moderate depression. He reporteda history of pharmacological treatment for depression in the secondary to traumatic leak hunter experiences. He explained that he has not pursued further psychotherapeutic intervention due to an unfavorable impression of previous treatment providers. Mr. Hawley reported poor sleep quality due to middle insomnia, with regular awakenings around 3:00 am each night due to back pain. He denied the use of tobacco products and reported infrequent, sparse alcohol use. He reported a history of cocaine and crack cocaine abuse over 20 years ago for which he completed multiple inpatient rehabilitative treatments. He said he has not used any illicit substances since about 1996. Behavioral Observations Speech was fluent, prosodic, and normally-articulated despite edentia. Comprehension was intact. Thought processes were generally organized and goal- oriented. He was talkative and circumstantial at times, though easily redirected with prompting. He evinced pain behaviors throughout the exam (e.g., shifting in his seat, wringing hands, sighing heavily, stretching out his left leg). Task engagementand persistence were adequate. Affect was mildly anxious but appropriately reactive. Effort was good throughout the exam. Clinical Assessment Procedures The following tests and procedures were administered: Clinical Interview Orientation Questionnaire: Orientation to personal information Orientation to place Orientation to temporal information Ratings of Speech and Language: Word Finding Fluency Paraphasias Articulation Prosody Comprehension Marvin Adult Intelligence Scale-IV: Similarities Information Vocabulary Matrix Reasoning Visual Puzzles Digit Span Arithmetic Symbol Search Coding Wide Range Achievement Test 4: Word Reading Test John Paul Auditory Verbal Learning Test John Paul-Osterrieth Complex Figure Test Skinner Visual Retention Test Marvin Memory Scale-III: Logical Memory I & II Faces I & II Spatial Span Carlisle Diagnostic Aphasia Exam: Carlisle Naming Test Complex Ideational Material Test Category Fluency Test Skinner Judgment of Line Orientation Test Clock Drawing Test Trailmaking Test Forms A & B Wisconsin Card Sorting Test TOMM OSHEA Gilliam Depression Inventory, 2nd Edition Gilliam Anxiety Inventory Ritchie Visual Acuity Screen [place] Multiphasic Personality Inventory - 2 Chronic Pain Coping Inventory Survey of Pain Attitudes Results Performance Validity Performances on direct and embedded measures of cognitive performance validity were within normal limits. Orientation: Mr. Hawley was normally oriented to time, place, and basic personal information. Intellect & Academic Achievement: Mr. Hawley???s performance on a reading and pronunciation test was at the upper limit of the borderline range (7th percentile). On tests of current intellectual functioning, his overall verbal abilities were low average (9th percentile), and overall visuospatial abilities were average (34th percentile). He does not have any acquired deficits in intellectual functioning, and his current measured a bilities are consistent with his educational and occupational background. Attention & Working Memory: Overall auditory attention and working memory abilities were low average (13th percentile) for repetition of digit strings and completion of mental arithmetic problems. Visual attention and working memory through reproduction of simple geometric designs were within broad expectations, and visual attention for spatial sequences was average. Speed of Processing & Mental Control: Visuomotor processing speed was low average overall (8th percentile). Speeded visual scanning and mental sequencing (trail-making) under focused attention was low average. Executive Functioning: Stem-making performance with the addition of executive demands for cognitive set-shifting was average. His ability to flexibly adjust responses to changing task demands while maintaining cognitive set was within normal limits. Language: Language functioning was within the average range for basic aural comprehension (54th percentile), visual object naming (>58th percentile), and associative verbal fluency (26th percentile). Visuoperceptual & Visuoconstructional Abilities: Near-point visual acuity, with both eyes and with corrective lenses, was 20/25 to Ritchie screening. Visuospatial judgment of the orientation of variably spaced lines was average. Visuospatial aspects of clock drawing were normal. Two-dimensional constructional copying of a complex geometric figure was average. Learning & Memory: Acquisition of and delayed memory for verbal information were both average. Immediate and delayed recognition memory for photographs of human faces was average to high average, respectively. Incidental visual memory for the complex figure copied earlier in the exam was average. Mood, Personality, & Coping Skills: On a questionnaire designed to detect symptom amplification through endorsement of rare or implausible symptoms, Mr. Hawley???s overall score was well beyond the cutoff for detection of exaggerationand symptom over-reporting. Individual scales with elevated scores included those assessing neurological, affective, psychiatric, and amnestic symptoms endorsements. On brief self-report measures, Mr. Hawley endorsed severe depression and moderate anxiety. On a measure of emotional and personality functioning, his profile reflected a tendency to freely endorse many different kinds of symptoms, possibly as a psychological ???cry for help.?? His response patterns were similar to others who hold overly negative and critical self-judgments. His overall responseprofile was suggestive of chronic emotional dysfunction characterized by anxious worrying and ruminating over physical pain and unpleasant bodily sensations. He may hold pessimistic beliefs regardingthe possibility of improving his overall well-being. On questionnaires related to his management of chronic pain, Mr. White???s responses suggest that his current coping strategies for managing symptoms of pain are largely maladaptive. His responses reflect a tendency for excessive rest and avoidance of situations that might potentially exacerbate his pain. His responses also suggest that he associates symptoms of pain with a strong fear of physical harm and permanent disability. Suicide Risk Screening Suicide risk screening was completed with the following positive results: -Anhedonia -Relentless agitation -Chronic sleep problems Mr. Hawley denied suicidal ideations, plans, or intent. We determined that he was not suicidal. The following recommendations were made: psychotherapeutic intervention and continued pain-management. SUMMARY AND CONCLUSIONS Edilberto Hawley was referred for neuropsychological evaluation pursuant to a work-related accident on April 16, 2017. Mr. Hawley was injured when he fell backwards off of a truck-trailer and fell onto a metal water pump, striking his back and head. He suffered injuries to his lumbar spine, and an apparent head injury without any loss of consciousness or neurological deficits. Acute head CT was negative for acute parenchymal changes, and follow-up brain MRI (06/17/17) was also negative for parenchymal abnormalities. Mr. Hawley developed complaints of back pain, dizziness, headaches, depression, and cognitive difficulties after the accident. He has had ongoing medical evaluations and treatment for his back problems, and has had ongoing work restrictions. Dr. 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 Also, Mr. Hawley has been diagnosed with postconcussion syndrome, and neuropsychological assessment was recommended. To help clarify whether Mr. Hawley has any ongoing cognitive or behavioral problems related to the accident, we were asked to perform a neuropsychological evaluation. Comprehensive neuropsychological evaluation indicates normal, intact cognitive [...] does not have chronic, persistent postconcussion syndrome. Mr. Hawley is continuing to report problems with chronic pain, some of which could be related to the April 2017 accident (we would defer to medical providers for a definitive conclusion on this topic, and the issue is complicated by the fact that he had preexisting problems with pain). Management of his pain problems is complex, given that the problems have been longstanding and given his apparent chronic difficulties with pain medication use. However, we would recommend that he participate in individual psychotherapy (with a health psychology focus) as an adjunctive pain treatment approach. His pain issues probably contribute to his emotional difficulties and his perception of cognitive difficulties in his everyday life. It is not possible to state with a reasonable degree of certainty that any of these problems were directly caused by the April 2017 accident, given that he had problemspremorbidly. He would likely benefit from exercise, as tolerated. We do not have any further recomme ndations. We do not have any work restrictions, from a neuropsychological perspective. He is at maximum medical improvement insofar as his cognitive and behavioral functioning are concerned. Elpidio Robles, PhD, ABPP/Cn Chief, [facility] Professor, Neurology and Psychological and Brain Sciences POST SPLITTER TIME, FACE TO FACE (COGNITIVE TESTING) 4 hours NEUROPSYCHOLOGIST TIME (COGNITIVE ASSESSMENT) 3 hours (Interview, interpreting and integrating findings, providing feedback & counseling, and preparing written report) NEUROPSYCHOLOGIST TIME (PERSONALITY ASSESSMENT) 1 hour (interpretation and integration of findings) documented in this encounter Plan of Treatment [...] As long as needed Video/Handout: [email or web address] Pain Management - Exercise Pain Management No Coco Leos PA-C Note: Exercise: General Aerobic ?? Duration: 3 to 5 days per week for 20 minutes per day ?? Intensity: Moderate Strengthening: neither Back nor General (for widespread pain) nor Shoulder ?? Intensity: Moderate ?? Duration: 2 to 4 days per week ?? Instructions: See attached documentation for details Video/Handout: [email or web address] documented as of this encounter Procedures Procedure Name Priority Date/Time Associated Diagnosis Comments AMA[facility]Y NEUROPSYCHOLOGY CONSULT - COGNITIVE ASSESSMENT Routine 09/13/2017 4:14 PM CDT Memory difficulties Increased frequency of headaches Post concussive syndrome documented in this encounter Results * [facility]Y NEUROPSYCHOLOGY CONSULT - COGNITIVE ASSESSMENT (09/13/2017 4:14 PM CDT) Narrative Elpidio Robles, PhD - 09/13/2017 4:14 PM CDT Elpidio Robles, PhD ? 09/13/2017 ??4:14 PM NEUROPSYCHOLOGY CONSULT NOTE REASON FOR REQUEST: ? Pt with head injury on 04/16/2017. Since then he has been having headaches and memory issues. Had head MRI externally. Suspect post-concussive syndrome. Pt reporting difficulty concentrating and retaining information. Desire cognitive assessment. Of note pt on LONG TIME narcrotic regimen for severe chronic pain, no recent change in this. REQUESTED BY: ? Coco Leos PA-C DATE OF SERVICE: ??09/08/2017 Patient: ?? Edilberto Hawley [facility] #: ??[id number] Date of Injury: April 16, 2017 Date of Evaluation: September 08, 2017 Date of Report: September 13, 2017 INTRODUCTION AND BACKGROUND Edilberto Hawley was referred for neuropsychological evaluation pursuant to a work-related accident on April 16, 2017. ??Mr. Hawley was injured when he fell backwards off a truck-trailer and fell onto a metal water pump, striking his back and head. ??He suffered injuries to his lumbar spine, and an apparent head injury without any loss of consciousness or neurological deficits. ??Acute head CT was negative for acute parenchymal changes, and follow-up brain MRI (06/17/17) was also negative for parenchymal abnormalities. ??Mr. Hawley developed complaints of back pain, dizziness, headaches, depression, and cognitive difficulties after the accident. ??He has had ongoing medical evaluations and treatment for his back problems, and has had ongoing work restrictions. ??Dr. 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 ??Also, Mr. Hawley has been diagnosed with postconcussion syndrome, and neuropsychological assessment was recommended. ??To help clarify whether Mr. Hawley has any ongoing cognitive or behavioral problems related to the accident, we were asked to perform a neuropsychological evaluation. ??The patient was referred to us by Miguel Earl of the [employer] in [place], [place]. Premorbid Records Mr. Hawley was evaluated on 05/25/83 for an accident in which he suffered exposure to xylene. ??He suffered virk to his body. ??He was treated at [facility] and recovered. Mr. Hawley was evaluated in the ED at [facility] on 07/25/16 for right-sided thoracic back pain. ??He was treated with pain medications. He was seen at [facility] on 09/30/16 for chronic pain complaints. ??It was noted that he had been on disability ? for a long time,? but recently was able to go back to work, and this ? improved his mental health.? ?? Ms. Leos referred him for pain management. Ms. Leos saw him at [facility] on 01/12/17 for follow-up of numerous pain complaints. ??Referral to the pain clinic was recommended. ?? He has chronic opioid medication use. Ms. Leos saw him again on 04/09/17 for pain problems. ??He has more frequent headaches. ??He has numerous complaints of chronic pain issues. ??He uses oxycodone. ??He ? works through? his pain, in a physically demanding job. Postmorbid Records Records from [facility] in [place], [place], indicate that Mr. Hawley was seen in the ED on 04/16/17. ??He apparently was working in a truck bed, lost his balance, and fell backwards about 4 feet, landing on a metal water pump and striking his back and head. ??He had a headache in the ED. ??He denied LOC, and denied dizziness, weakness/numbness, confusion, and mental status changes. ??He was fully oriented and alert in the ED. ??He did not have any focal neurological deficits, and neurological exam was normal. ??A head CT was negative for acute parenchymal changes; there was soft tissue swelling noted in the right occipital scalp. ??X-rays revealed lumbar transverse process fractures, at right L1, L2, and L3, mildly displaced. ??He was not diagnosed with traumatic brain injury or concussion. Mr. Hawley was seen in the Occupational Medicine clinic at [facility] on 04/28/17. 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 ??He denied LOC. ??He had lumbar fractures. ??He has a PMH of sleep apnea and arthritis. ??He had carolann in his right occipital scalp. He was instructed to not return to work yet. ??His carolann were removed on 05/04/17, without difficulty. Mr. Hawley was seen at [facility] on 05/12/17. ??It was noted that he had a premorbid history of back pain, treated with ESIs (that were helpful). He currently reports worsening pain since the recent accident. ??He has a workers? compensation claim. He was a care home opioid medication user. ??He was given activity restrictions. Dr. [place] saw him in occupational medicine on 05/19/17. ??He reported ongoing problems with dizzy spells. ??Dr. [place] diagnosed him with vertigo. ??She saw him again on 05/25/17, and he reported increasing balance problems. ??She also noted that he was depressed. Mr. Hawley was seen in PT on 05/25/17. ??He reported ongoing balance problems since the accident, with falls. ??A diagnosis of PCS is provided in these records. ??Other symptoms reported included dizziness, imbalance, and tinnitus. ??Mr. Hawley participated in PT. ??A record from 06/08/17 indicates that he is reporting short-term memory problems, headaches, and disorientation. ??He missed a PT appointment and blamed this on his memory problems. Dr. [place] saw Mr. Hawley in [facility] Orthopedics on 05/12/17. ??It was noted that Mr. Hawley had a premorbid history of back pain (e.g., seen at [facility] on 07/25/16 for severe back pain, and treated with KOTA). ??Mr. Hawley had a left hip replacement on 10/01/16. ?? His neurological status was intact. ??Dr. 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 ??He was given work restrictions and advised to not drive while taking sedating medications. Dr. [place] saw the patient in the [facility] ED on 05/12/17. ??Mr. Hawley had been seen earlier that day in [facility] Orthopedics, and afterwards, had a severe episode of back pain and near-syncope. ?? He returned to the ED. ??Dr. [place] noted that the patient has had pain ? most of his life,? and has taken numerous pain medications. Mr. Hawley was worried that Dr. [place] had done something to him at the ortho appointment. ??Dr. [place] was doubtful about any treatment-related injury. Dr. [place] saw him again on 05/19/17. ??Mr. Hawley reporting ongoing back pain, and problems with dizziness. ??He is having frequent headaches and feels depressed. ??Neurological status was intact. ??His lumbar fractures were healing normally. ??Dr. [place] advised him that he could discontinue wearing the back brace. A note from Dr. 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 ??His lumbar fractures were healing normally. ??He continued to report back pain. Follow-up with Dr. [place] on 06/08/17 indicated ongoing problems with depression. ??She diagnosed him with reactive depression and closed head injury with headaches, among other conditions. Follow-up with Dr. [place] on 06/21/17 indicated that a recent brain MRI was negative. ??Mr. Hawley was quite distraught. ??He has ongoing head pain. ??He feels as though his employer is blaming him for the accident. ??She recommended that he be seen by a psychiatrist and psychologist. ??A follow-up note on 06/22/17 indicated that the referral for a psychiatrist was denied by the insurance company. ??He is planning to follow up on this on his own. ??He is having ongoing problems with dizziness and balance, and Dr. Todd recommended a referral to neurology. ??Another note from 07/20/17 indicated that Mr. Hawley is having ongoing problems with dizziness and ringing in his ears. ??His PCP is ? very worried about him.? ??Dr. [place] saw him on 08/17/17, and noted that he was doing very poorly. ??He has many problem including headaches, falling, tinnitus, back pain, shoulder pain, and dizziness. ??Referral for neurological consultation was recommended. Brain MRI on 06/17/17 showed sinus disease but no parenchymal abnormalities. Ms. Dafne PA-C, saw Mr. Hawley on 07/09/17 and recommended that he continue with brain rest and not return to work yet. ??She noted that he was suffering from PCS. ??He was reporting symptoms of headaches, dizziness, fatigue, and memory and concentration problems. ??She recommended neuropsychological evaluation. [facility] Identifying Information Edilberto Hawley is a 61-year-old, right-handed (+100) man. He completed 6 years of formal education. 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 Mr. Hawley was unaccompanied to our evaluation. ?? Mr. Hawley? 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 Records indicated he sustained a lumbar spine fracture, scalp laceration, and left shoulder injury. When describing his injury on interview today, Mr. Hawley said he was momentarily dazed, although he denied any loss of consciousness or memory loss associated with this event. Following his injury, he said he was taken to a local hospital via ambulance. He reported undergoing brain imaging studies which were reportedly normal. Mr. Hawley explained that he was discharged home following brief treatment at the hospital, and he said he went back to work two weeks after his injury. He added that he subsequently stopped working due to increased problems with pain, headaches, and concentration difficulties. He also reported problems with forgetfulness, distractibility, and inattentiveness. He said he often loses track of conversations with others and relies upon written reminders to assist him with remembering important information. Mr. Hawley said these problems started approximately two weeks after his injury in April 2017. He reported ongoing pain in his left shoulder, left leg, left foot, left arm, and lower back. He also reported recurrent headaches. ?? Mr. Hawley? s medical history is significant for chronic pain in his back, shoulders, hands, and wrists; surgical history includes left hip replacement and repair of left rotator cuff. Records indicated that Mr. Hawley has been on a chronic pain management regimen including longstanding use of opioid pain medications for the past several years. Current medications include oxycodone, baclofen, gabapentin, propranolol, and amitriptyline. Mr. Hawley reported a variable mood with intermittent symptoms of moderate depression. He reported a history of pharmacological treatment for depression in the 1990s secondary to traumatic leak hunter experiences. He explained that he has not pursued further psychotherapeutic intervention due to an unfavorable impression of previous treatment providers. Mr. Hawley reported poor sleep quality due to middle insomnia, with regular awakenings around 3:00 am each night due to back pain. He denied the use of tobacco products and reported infrequent, sparse alcohol use. He reported a history of cocaine and crack cocaine abuse over 20 years ago for which he completed multiple inpatient rehabilitative treatments. He said he has not used any illicit substances since about 1996. Behavioral Observations Speech was fluent, prosodic, and normally-articulated despite edentia. Comprehension was intact. Thought processes were generally organized and goal-oriented. He was talkative and circumstantial at times, though easily redirected with prompting. He evinced pain behaviors throughout the exam (e.g., shifting in his seat, wringing hands, sighing heavily, stretching out his left leg). Task engagement and persistence were adequate. Affect was mildly anxious but appropriately reactive. Effort was good throughout the exam. Clinical Assessment Procedures The following tests and procedures were administered: Clinical Interview Orientation Questionnaire: Orientation to personal information Orientation to place Orientation to temporal information Ratings of Speech and Language: Word Finding Fluency Paraphasias Articulation Prosody Comprehension Marvin Adult Intelligence Scale-IV: Similarities Information Vocabulary Matrix Reasoning Visual Puzzles Digit Span Arithmetic Symbol Search Coding Wide Range Achievement Test 4: Word Reading Test John Paul Auditory Verbal Learning Test John Paul-Osterrieth Complex Figure Test Skinner Visual Retention Test Marvin Memory Scale-III: Logical Memory I & II Faces I & II Spatial Span Carlisle Diagnostic Aphasia Exam: Carlisle Naming Test Complex Ideational Material Test Category Fluency Test Skinner Judgment of Line Orientation Test Clock Drawing Test Trailmaking Test Forms A & B Wisconsin Card Sorting Test TOMM OSHEA Gilliam Depression Inventory, 2nd Edition Gilliam Anxiety Inventory Ritchie Visual Acuity Screen [place] Multiphasic Personality Inventory ? 2 Chronic Pain Coping Inventory Survey of Pain Attitudes Results Performance Validity Performances on direct and embedded measures of cognitive performance validity were within normal limits. Orientation: Mr. Hawley was normally oriented to time, place, and basic personal information. Intellect & Academic Achievement: Mr. Hawley? s performance on a reading and pronunciation test was at the upper limit of the borderline range (7th percentile). On tests of current intellectual functioning, his overall verbal abilities were low average (9th percentile), and overall visuospatial abilities were average (34th percentile). ??He does not have any acquired deficits in intellectual functioning, and his current measured abilities are consistent with his educational and occupational background. Attention & Working Memory: Overall auditory attention and working memory abilities were low average (13th percentile) for repetition of digit strings and completion of mental arithmetic problems. Visual attention and working memory through reproduction of simple geometric designs were within broad expectations, and visual attention for spatial sequences was average. Speed of Processing & Mental Control: Visuomotor processing speed was low average overall (8th percentile). Speeded visual scanning and mental sequencing (trail-making) under focused attention was low average. ?? Executive Functioning: Stem-making performance with the addition of executive demands for cognitive set-shifting was average. His ability to flexibly adjust responses to changing task demands while maintaining cognitive set was within normal limits. ?? Language: Language functioning was within the average range for basic aural comprehension (54th percentile), visual object naming (>58th percentile), and associative verbal fluency (26th percentile). Visuoperceptual & Visuoconstructional Abilities: Near-point visual acuity, with both eyes and with corrective lenses, was 20/25 to Ritchie screening. Visuospatial judgment of the orientation of variably spaced lines was average. Visuospatial aspects of clock drawing were normal. ?? Two-dimensional constructional copying of a complex geometric figure was average. Learning & Memory: Acquisition of and delayed memory for verbal information were both average. Immediate and delayed recognition memory for photographs of human faces was average to high average, respectively. Incidental visual memory for the complex figure copied earlier in the exam was average. Mood, Personality, & Coping Skills: On a questionnaire designed to detect symptom amplification through endorsement of rare or implausible symptoms, Mr. Beach s overall score was well beyond the cutoff for detection of exaggeration and symptom over-reporting. Individual scales with elevated scores included those assessing neurological, affective, psychiatric, and amnestic symptoms endorsements. On brief self-report measures, Mr. Hawley endorsed severe depression and moderate anxiety. On a measure of emotional and personality functioning, his profile reflected a tendency to freely endorse many different kinds of symptoms, possibly as a psychological ? cry for help.? His response patterns were similar to others who hold overly negative and critical self-judgments. His overall response profile was suggestive of chronic emotional dysfunction characterized by anxious worrying and ruminating over physical pain and unpleasant bodily sensations. He may hold pessimistic beliefs regarding the possibility of improving his overall well-being. On questionnaires related to his management of chronic pain, Mr. White? s responses suggest that his current coping strategies for managing symptoms of pain are largely maladaptive. His responses reflect a tendency for excessive rest and avoidance of situations that might potentially exacerbate his pain. His responses also suggest that he associates symptoms of pain with a strong fear of physical harm and permanent disability. Suicide Risk Screening Suicide risk screening was completed with the following positive results: -Anhedonia -Relentless agitation -Chronic sleep problems Mr. Hawley denied suicidal ideations, plans, or intent. We determined that he was not suicidal. The following recommendations were made: psychotherapeutic intervention and continued pain-management. ?? SUMMARY AND CONCLUSIONS Edilberto Hawley was referred for neuropsychological evaluation pursuant to a work-related accident on April 16, 2017. ??Mr. Hawley was injured when he fell backwards off of a truck-trailer and fell onto a metal water pump, striking his back and head. ??He suffered injuries to his lumbar spine, and an apparent head injury without any loss of consciousness or neurological deficits. ??Acute head CT was negative for acute parenchymal changes, and follow-up brain MRI (06/17/17) was also negative for parenchymal abnormalities. ??Mr. Hawley developed complaints of back pain, dizziness, headaches, depression, and cognitive difficulties after the accident. ??He has had ongoing medical evaluations and treatment for his back problems, and has had ongoing work restrictions. ??Dr. 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 ?? Also, Mr. Hawley has been diagnosed with postconcussion syndrome, and neuropsychological assessment was recommended. ??To help clarify whether Mr. Hawley has any ongoing cognitive or behavioral problems related to the accident, we were asked to perform a neuropsychological evaluation. ?? Comprehensive neuropsychological evaluation indicates normal, intact cognitive functioning. ??Mr. Hawley has a low average baseline and limited formal education, and his performances on cognitive testing are commensurate with his background and baseline. ?? He had normal memory, speech and language, perception, construction, attention, orientation, concentration, problem-solving, and executive functioning. ?? He does not have any acquired cognitive impairments from the April 2017 accident. ?? He does not have chronic, persistent postconcussion syndrome. Mr. Hawley is continuing to report problems with chronic pain, some of which could be related to the April 2017 accident (we would defer to medical providers for a definitive conclusion on this topic, and the issue is complicated by the fact that he had preexisting problems with pain). ??Management of his pain problems is complex, given that the problems have been longstanding and given his apparent chronic difficulties with pain medication use. However, we would recommend that he participate in individual psychotherapy (with a health psychology focus) as an adjunctive pain treatment approach. ??His pain issues probably contribute to his emotional difficulties and his perception of cognitive difficulties in his everyday life. ??It is not possible to state with a reasonable degree of certainty that any of these problems were directly caused by the April 2017 accident, given that he had problems premorbidly. ??He would likely benefit from exercise, as tolerated. ??We do not have any further recommendations. ??We do not have any work restrictions, from a neuropsychological perspective. ??He is at maximum medical improvement insofar as his cognitive and behavioral functioning are concerned. Elpidio Robles, PhD, ABPP/Cn Chief, [facility] Professor, Neurology and Psychological and Brain Sciences POST SPLITTER TIME, FACE TO FACE (COGNITIVE TESTING) 4 hours NEUROPSYCHOLOGIST TIME (COGNITIVE ASSESSMENT) 3 hours (Interview, interpreting and integrating findings, ??providing feedback & counseling, and preparing written report) NEUROPSYCHOLOGIST TIME (PERSONALITY ASSESSMENT) 1 hour (interpretation and integration of findings) ? us Coco Leos PA-C NEUROPSYCH ORDERABLES Final Result documented in this encounter Visit Diagnoses Diagnosis Memory difficulties Memory loss Increased frequency of headaches Headache Post concussive syndrome Postconcussion syndrome documented in this encounter Additional Health Concerns Assessment Noted Time PHQ-2 Depression Total Score: 0 08/09/20 17 9:37 AM CDT documented as of this encounter Care Teams Machine Printer Relationship Specialty Start Date End Date Coco Leos PA-C [address] [place] [id number] PCP - General Physician General Internist And Physician Leader 02/17/17 12/15/22 documented as of this encounter
--- OUTSIDE RECORDS SUMMARY | 2024-11-23 00:15 | XMS_ITS | Encounter Summary ---
Author Organization [facility] Address [address] [place] [address] Phone Care Team Providers Care Airline Operations Agent Name Role Phone Coco Leos PA-C Primary Care Provider [phone] Provider, No-Primary Care Primary Care Provider Unavailable Encounter Details Date Type Department Care Team (Late st Contact Info) Description 09/01/2017 Pharmacy Visit [facility] [address] [place] [phone] Social History Tobacco Use Types Packs/Day [...] documented as of this encounter Care Teams Airline Operations Agent Relationship Specialty Start Date End Date Coco Leos PA-C [address] [place], [place] [phone] PCP - General Physician Lead Injection Mold Technician 02/17/17 12/15/22 Provider, No-Primary Care [place] PCP - General 12/16/22 documented as of this encounter
--- OUTSIDE RECORDS SUMMARY | 2024-11-23 00:15 | XMS_ITS | Encounter Summary ---
Author Organization [facility] Address [address] [place] [address] Phone Care Team Providers Care Coding Quality Analyst Name Role Phone Coco Leos PA-C Primary Care Provider [phone] Provider, No-Primary Care Primary Care Provider Unavailable Encounter Details Date Type Department Care Team (Late st Contact Info) Description 09/22/2017 Pharmacy Visit [facility] [address] [place] [phone] Social History Tobacco Use Types Packs/Day [...] documented as of this encounter Care Teams Coding Quality Analyst Relationship Specialty Start Date End Date Coco Leos PA-C [address] [place], [place] [phone] PCP - General Physician Metal Trim Erector 02/17/17 12/15/22 Provider, No-Primary Care [place] PCP - General 12/16/22 documented as of this encounter
--- OUTSIDE RECORDS SUMMARY | 2024-11-23 00:15 | XMS_ITS | Encounter Summary ---
Author Organization [facility] Care Address [address] [place] [address] Phone Care Team Providers Care Manager Basketball Name Role Phone Coco Leos PA-C Primary Care Provider [phone] Reason for Visit * Reason Comments Patient Reported Reason For Visit Encounter Details Date Type Department Care Team (Late st Contact Info) Description 09/08/2017 8:54 AM CDT - 09/08/2017 11:59 PM CDT [facility] - Radiology - External [address] [place] [phone] Venancio Soto [address] [place] [address] Social History Tobacco Use Types Packs/Day Years [...] needed. 35.44 g 11 01/12/2017 5:22 PM PATCH DRILLER 01/12/2017 omeprazole 20 mg enteric coated capsule [...] bedtime. 60 capsule 11 10/11/2017 12:12 PM PATCH DRILLER 08/09/2017 7 naloxone 1 mg/mL injection syringe [...] daily. 30 capsule 2 10/11/2017 12:12 PM PATCH DRILLER 08/09/2017 7 documented as of this encounter [...] of use: As long as needed Video/Handout: [email or web address] Pain Management - Exercise Pain Management No Coco Leos PA-C Note: Exercise: General Aerobic ?? Duration: 3 to 5 days per week for 20 minutes per day ?? Intensity: Moderate Strengthening: neither Back nor General (for widespread pain) nor Shoulder ?? Intensity: Moderate ?? Duration: 2 to 4 days per week ?? Instructions: See attached documentation for details Video/Handout: [email or web address] documented as of this encounter Procedures Procedure Name Priority Date/Time Associated Diagnosis Comments EXTERNAL PL FILMS - STORE ONLY Routine 09/08/2017 9:44 AM CDT documented in this encounter Results * EXTERNAL PL FILMS - STORE ONLY (09/08/2017 9:44 AM CDT) us Estevan Johnson MD RAD EXTERNAL IMAGES Veronica l Result documented in this encounter Visit Diagnoses Not on filedocumented in this encounter Additional Health Concerns Assessment Noted Time PHQ-2 Depression Total Score: 0 08/09/20 17 9:37 AM CDT documented as of this encounter Care Teams Manager Basketball Relationship Specialty Start Date End Date Coco Leos PA-C [address] [place] [address] PCP - General Physician Mailroom Assistant 02/17/17 12/15/22 documented as of this encounter
--- OUTSIDE RECORDS SUMMARY | 2024-11-23 00:15 | XMS_ITS | Encounter Summary ---
Author Organization [facility] Care Address [address] [place] [address] Phone Care Team Providers Care Ancillary Services Manager Therapy Name Role Phone Coco Leos PA-C Primary Care Provider [phone] Reason for Visit * Reason Comments Patient Reported Reason For Visit Encounter Details Date Type Department Care Team (Late st Contact Info) Description 09/22/2017 12:00 PM STROKE BELT SANDER OPERATOR Lab Only [place] - [facility] - Draw Station [address] [place] [phone] Coco Leos PA-C [address] [place], [place] [phone] Lab Services, [place] Social History Tobacco Use Types Packs/Day Years [...] documented as of this encounter Care Teams Ancillary Services Manager Therapy Relationship Specialty Start Date End Date Coco Leos PA-C [address] [place], [place] [phone] PCP - General Physician Motor Adjuster 02/17/17 12/15/22 documented as of this encounter
--- OUTSIDE RECORDS SUMMARY | 2024-11-23 00:15 | XMS_ITS | Encounter Summary ---
Author Organization [facility] Care Address [address] [place] [address] Phone Care Team Providers Care Assurance Manager Insurance Name Role Phone Coco Leos PA-C Primary Care Provider [phone] Provider, No-Primary Care Primary Care Provider Unavailable Encounter Details Date Type Department Care Team (Late st Contact Info) Description 08/16/2017 [facility] - Orthopedics - Work Injury Recovery [address] [place] [address] Floyd Fowler MD [address] [place], [place] [phone] Social History Tobacco Use Types Packs/Day Years [...] encounter Miscellaneous Notes * Telephone Encounter - Michelle Lundberg - 08/16/2017 1:42 PM CDT FYI for record: Correspondence was addressed to ATTN: Medical Records at the [facility] address and it was delivered to Dr. Fowler. This [employer] is requestinga copy of all records, and in their notes they are asking for anything from '1955' to present, which I believe is an error as that is the patient's . This information was faxed to [facility] today @ [phone]. documented in this encounter Plan of Treatment Not on file documented as of this encounter Visit Diagnoses Not on filedocumented in this encounter Additional Health Concerns Assessment Noted Time PHQ-2 Depression Total Score: 0 08/09/20 17 9:37 AM CDT documented as of this encounter Care Teams Assurance Manager Insurance Relationship Specialty Start Date End Date Coco Leos PA-C [address] [place] [phone] PCP - General Physician Faro Dealer 02/17/17 12/15/22 Provider, No-Primary Care [place] PCP - General 12/16/22 documented as of this encounter
--- OUTSIDE RECORDS SUMMARY | 2024-11-23 00:15 | XMS_ITS | Encounter Summary ---
Author Organization [facility] Care Address [address] [place] [address] Phone Care Team Providers Care Strand Buncher Fine Wire Name Role Phone Coco Leos PA-C Primary Care Provider [phone] Provider, No-Primary Care Primary Care Provider Unavailable Encounter Details Date Type Department Care Team (Late st Contact Info) Description 08/09/2017 Pharmacy Visit [facility] [address] [place] [phone] Social History Tobacco Use Types Packs/Day [...] documented as of this encounter Care Teams Strand Buncher Fine Wire Relationship Specialty Start Date End Date Coco Leos PA-C [address] [place], [place] [phone] PCP - General Physician Card Processing Clerk 02/17/17 12/15/22 Provider, No-Primary Care [place] PCP - General 12/16/22 documented as of this encounter
--- OUTSIDE RECORDS SUMMARY | 2024-11-23 00:16 | XMS_ITS | Encounter Summary ---
Author Organization [facility] Care Address [address] [place] [address] Phone Care Team Providers Care Continuous Improvement Manager Name Role Phone Coco Leos PA-C Primary Care Provider [phone] Reason for Visit * Reason Onset Date Comments Back Pain 06/24/2017 Encounter Details Date Type Department Care Team (Late st Contact Info) Description 06/24/2017 Telephone [facility] [address] [facility] [address] [place] [address] Coco Leos PA-C [address] [place] [address] Social History Tobacco Use Types [...] Telephone Encounter - Maryellen Tristan RN - 06/24/2017 2:27 PM CDT 06/24/2017 1) Pt calling saying he was injured at work on 04-16-17 and has been dealing with workman's comp. Is seeing [facility] in [place] and they are wondering if there is any way you could order and MRI of his lower back at his visit with you on 07-09-17? He had back pain prior to this injury too, but is now worse. Workman's comp will not cover the MRI of low back. 2) Is in a lot of pain, his balance is off by 38% after this injury. 3) Advised to discuss at clinic visit with you on 07-09-17. Pt agrees with plan. MJ. Kun RN 06/24/2017, 2:34 PM It looks he seeing someone at the [facility] regarding his lumbar spine fracture and has a followupwith them on July 07. If he seeing another clinic in [place] and they want me to order an MRI I would like to see their notes. If you could bring a copy of those with his appointment that would be appreciated. Coco Leos PA-C, 06/30/2017 3:03 PM Left message for patient to call back regarding above message. Sandy Fernandez RN, 06/30/2017 3:12 PM 06/30/2017 Called and spoke to Edilberto and read him the message above from Sherry Leos and agrees with getting records from [place] and bring to appt on 07-09-17 with Sherry Leos. MJ. Kun RN 06/30/2017, 4:57 PM Pt left VMM returning our call. Pt not available on return call, left VMM to call back. MJ. Kun RN 06/30/2017, 4:33 PM documented in this encounter Plan of Treatment Not on file documented as of this encounter Visit Diagnoses Not on filedocumented in this encounter Additional Health Concerns Assessment Noted Time PHQ-2 Depression Total Score: 0 04/09/20 2:55 PM CDT documented as of this encounter Care Teams Continuous Improvement Manager Relationship Specialty Start Date End Date Coco Leos PA-C [address] [place], [place] [phone] PCP - General Physician Hydraulic Dredge Operator 02/17/17 12/15/22 documented as of this encounter
--- OUTSIDE RECORDS SUMMARY | 2024-11-23 00:16 | XMS_ITS | Encounter Summary ---
Author Organization [facility] Care Address [address] [place] [address] Phone Care Team Providers Care Assistant Merchandiser Name Role Phone Coco Leos PA-C Primary Care Provider [phone] Provider, No-Primary Care Primary Care Provider Unavailable Encounter Details Date Type Department Care Team (Late st Contact Info) Description 06/09/2017 Pharmacy Visit RX [facility] [address] [place] [phone] Social History Tobacco Use Types Packs/Day [...] Date End Date Coco Leos PA-C [address] [place], [place] [phone] PCP - General Physician Logistics Analytics Manager 02/17/17 12/15/22 Provider, No-Primary Care [place] PCP - General 12/16/22 documented as of this encounter
--- OUTSIDE RECORDS SUMMARY | 2024-11-23 00:16 | XMS_ITS | Encounter Summary ---
Author Organization [facility] Care Address [address] [place] [address] Phone Care Team Providers Care Cooling Tower Operator Name Role Phone Coco Leos PA-C Primary Care Provider [phone] Encounter Details Date Type Department Care Team (Late st Contact Info) Description 05/13/2017 Orders/Notes [facility] Orthopedics - Work Injury Recovery [address] [place] [phone] Floyd Fowler MD [address] [place] [address] Social History Tobacco Use Types Packs/Day Years [...] as of this encounter Progress Notes * Janiya Mays RN - 05/13/2017 12:47 PM CDT 05/13/2017@1403-Order placed to store AND interpret external lumbar CT dated 04/16/2017 documented in this encounter Plan of Treatment [...] of use: As long as needed Video/Handout: [email or web address].[email or web address] ([employer])-[email or web address]-uygygoiuai-tens Pain Management - Exercise Pain Management No Coco Leos PA-C Note: Exercise: General Aerobic ?? Duration: 3 to 5 days per week for 20 minutes per day ?? Intensity: Moderate Strengthening: neither Back nor General (for widespread pain) nor Shoulder ?? Intensity: Moderate ?? Duration: 2 to 4 days per week ?? Instructions: See attached documentation for details Video/Handout: [email or web address] documented as of this encounter Visit Diagnoses Diagnosis Back pain- Primary Backache, unspecified documented in this encounter Additional Health Concerns Assessment Noted Time PHQ-2 Depression Total Score: 0 04/09/20 17 2:55 PM CDT documented as of this encounter Care Teams Cooling Tower Operator Relationship Specialty Start Date End Date Coco Leos PA-C [address] [place] [phone] PCP - General Physician Environmental Services Manager 02/17/17 12/15/22 documented as of this encounter
--- OUTSIDE RECORDS SUMMARY | 2024-11-23 00:16 | XMS_ITS | Encounter Summary ---
Author Organization [facility] Care Address [address] [place] [address] Phone Care Team Providers Care Line Patroller Name Role Phone Coco Méndez PA-C Primary Care Provider [phone] Reason for Visit * Reason Onset Date Comments Med Request 06/08/2017 Encounter Details Date Type Department Care Team (Late st Contact Info) Description 06/08/2017 Refill [facility] - Pharmacy [address] [place] [phone] Nikko Han, [facility] [address] [place] [address] Social History Tobacco Use Types [...] Miscellaneous Notes * Telephone Encounter - Coco Méndez PA-C - 06/08/2017 5:[address] in [facility] folder. Coco Méndez PA-C, 06/08/2017 5:29 PM * Telephone Encounter - Dayanna Escamilla - 06/08/2017 4:55 PM CDT Pharmacy is requesting refill of: Oxycodone/Acetaminphen, Oxycodone 15mg XR Last visit: 04/09/17 Next visit: 07/09/17 Last written: 05/13/17 Prescription destination: [facility] * Telephone Encounter - Nikko Han [facility] - 06/08/2017 4:44 PM CDT IR Pain Medication Refill Service - Pharmacist Note Edilberto Hawley is enrolled in the Pain Medication Refill Service and requests renewal of oxycodnone/apap 10/325mg #120 and oxycontin 15mg XR # 60 for OA shoulders, wrist, hands and back pain. Level of Analgesia He reports an average pain score after medication of 7 in the last week. Functional Activity Improved abilities: working, concentration, mood and relationships Adverse Events Denies over-sedation, confusion, falls and constipation. Aberrant Behavior Last fill 05/14. There are no unexpected entries on the [facility]AR[facility] FURNACE OPERATOR and refill frequency is every 29-30 days. Opioid agreement signed 01/12/[address] Méndez. Urine Drug Screen: 01/12/17 postieive as expected Respiratory Depression Risk Score 3; long acting opioid prescribed, emergency visit within last 6 months and history of opioid abuse Morphine equivalent dose is 105 mg/day. physical therapy director is available. Emergency intranasal naloxoneis warranted at this time. Prescriptions pended for Dr. Méndez, last visit: 04/09; return visit: 07/09. Please send orders to [facility] pharmacy for pick-up. Thank you, Zain Han [facility] pharmacy documented in this encounter Plan of Treatment Not on file documented as of this encounter Visit Diagnoses Diagnosis Other chronic pain- Primary Low back pain with radiation, right documented in this encounter Additional Health Concerns Assessment Noted Time PHQ-2 Depression Total Score: 0 04/09/20 17 2:55 PM CDT documented as of this encounter Care Teams Line Patroller Relationship Specialty Start Date End Date Coco Méndez PA-C [address] [place] [id number] PCP - General Physician French Instructor 02/17/17 12/15/22 documented as of this encounter
--- OUTSIDE RECORDS SUMMARY | 2024-11-23 00:16 | XMS_ITS | Encounter Summary ---
Author Organization [facility] Address [address] [place] [address] Phone Care Team Providers Care Pit Shovel Operator Name Role Phone Coco Leos PA-C Primary Care Provider [phone] Reason for Visit * Reason Comments Patient Reported Reason For Visit WC MARIA DEL CARMEN K, EVAL & TREAT, FALL ONTO BACK, L2, L3, L4 TRANSVERSE PROCESS FRACTURES, PRIOR L5 - S1 FORAMINAL NARROWING, DOI 04/16/2017 Encounter Details Date Type Department Care Team (Late st Contact Info) Description 05/19/2017 8:45 AM CDT Office Visit [facility] - Work [facility] [address] [place] [address] Floyd Fowler MD [address] [place], [place] [id number] Social History Tobacco Use Types Packs/Day Years [...] Sign Reading Time Taken Comments Blood Pressure 140/74 05/19/2017 8:44 AM CDT Pulse 68 05/19/2017 8:44 AM CDT Temperature 36 ??C (96.8 ??F) 05/19/2017 8:44 AM CDT Respiratory Rate - - Oxygen Saturation - - Inhaled Oxygen Concentration - - Weight 81.6 kg (180 lb) 05/19/2017 8:44 AM CDT Height 180.3 cm (5' 11 ) 05/19/2017 8:44 AM CDT Body Mass Index 25.1 05/19/2017 8:44 AM CDT documented in this encounter Progress Notes * Floyd Fowler MD - 05/19/2017 8:45 AM CDT Encounter Date: 05/19/2017 SUBJECTIVE Chief Complaint: Back pain History of Present Illness/Past History Edilberto Hawley is a 61 y.o. 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 He describes hitting his back on the way down, and landing on his head. He was seen at [facility] in [place]. CT of the lumbar spine on 04/16/2017 was reported as mildly displaced acute fractures of the right L1, L2, and L3 transverse processes. No vertebral body fractures are identified. Multilevel degenerative changes. No critical spinal canal narrowing. Multilevel foraminal narrowing is seen, most pronounced on the right at the L5-S1 where it islikely severe. [facility] provided a custom back brace. Xrays on 04/19/2017 were reported as new superior endplate compression deformity at L3, compared to prior MRI, similar mild retrolisthesis of L2 on L3. He has a history of back pain with right lower extremity radicular pain and had epidural steroid injections that were very helpful. He was seen at [facility] emergency department on 07/25/2016 with a three-day history of right sided thoracic back pain, worse with movements and deep breaths, first noted after hitting his back on a coat rack at work when going from working on his knees to standing. He established care with [facility] internal medicine and receives Oxycodone/acetaminophen 10/325 [...] mild inflammation or muscle sprain. When Mr. Hawley was notified of results by phone , he reported he had fallen on his buttocks at [employer] the previous day with increased pain to hislower back. Mr. Hawley was initially seen on 05/12/2017 for back pain. He reports after he left the clinic, hehad increased back pain such that he went down on one knee in the parking garage. He reported passed out while driving home. He returned to [facility] emergency department where he received IV hydrmorphone, Zofran, and intravenous saline. He attributes the increased back pain after he clinic visit to bending forward and backward, and his mentioned that Dr. Fowler had pressed on his back. He reportshe has not been able to bend his back for a long time, and he gets around this by kneeling. Today Mr. Hawley reports 7-8/10 medial low back and thoracic back pain. His is wearing a back brace. He describes dizziness that started about 1 1/2 weeks after his accident at work, when they took the carolann out of his scalp. He reports he will see the [facility] physicians immediately after he leaves this clinic visit, and they will address his passing out episodes. Active Problem List Diagnosis Code ??? Health care maintenance Z00.00 ??? Chronic pain G89.29 ??? History of left hip replacement Z96.642 ??? History of repair of left rotator cuff Z98.890 ??? Encounter related to worker's compensation claim 04/16/2017 Back Z02.6 ??? USP current use of opiate analgesic Z79.891 ??? Closed fracture of transverse process of lumbar vertebra with routine healing S32.009D No Known Allergies He has a past medical history of Acid reflux; Chronic pain; History of left hip replacement (10/01/2016); History of repair of left rotator cuff (10/01/2016); and Esophageal varices without bleeding.He also has no past medical history of Essential hypertension, benign. Past Medical History Diagnosis Date ??? Acid reflux ??? Chronic pain ??? History of left hip replacement 10/01/2016 2016 ??? History of repair of left rotator cuff 10/01/2016 ??? Esophageal varices without bleeding Family History Problem Relation Age of Onset ??? Bleeding Prob Mother Past Surgical History Procedure Laterality Date ??? Tonsillectomy ??? Vasectomy ??? Joint replacement ??? Shoulder surgery ??? Revision total hip arthroplasty Left ??? Upper endoscopy ??? Elbow surgery Left He reports that he has never smoked. He has never used smokeless tobacco. He reports that he does not drink alcohol or use illicit drugs. Medication List with Changes/Refills Current Medications AMITRIPTYLINE 75 MG TABLET Take 1 tablet (75 mg total) by mouth at bedtime. CALCIUM CARBONATE 500 MG (1,250 MG) -VITAMIN D2 200 UNITS PER TABLET Take 2 tablets by mouth 2 times daily. CHOLECALCIFEROL (VITAMIN D3) 2,000 UNIT CAPSULE Take 2,000 Units by mouth daily. CYCLOBENZAPRINE 10 MG TABLET Take 10 mg by mouth at bedtime. GABAPENTIN 100 MG CAPSULE Take 1 capsule (100 mg total) by mouth at bedtime. LIDOCAINE 5 % OINTMENT Apply topically 2 times daily as needed. NALOXONE 1 MG/ML INJECTION SYRINGE (2 ML) Gently screw vial of naloxone into barrel of syringe. Insert white cone into nostril. Give a short, vigorous push on end of vial to spray 1/2 of vial, 1ml, into each nostril. Repeat with second vial in 3 minutes, if no response. OMEPRAZOLE 20 MG ENTERIC COATED CAPSULE Take 20 mg by mouth daily. OXYCODONE (OXYCONTIN) 15 MG XR TABLET Take 1 tablet (15 mg total) by mouth 2 times daily. Earliest Fill Date: 05/13/17 OXYCODONE-ACETAMINOPHEN 10-325 MG PER TABLET Take 1 tablet by mouth every 4 hours as needed for Pain. Earliest Fill Date: 05/13/17 SENNOSIDES (SENEXON) 8.6 MG TABLET Take 1 tablet by mouth 2 times daily as needed. Review of SystemsAll systems were reviewed and are negative except for: Ears: Ringing in the ears, Trouble hearing, Dizziness Urogenital: Up at night to urinate Musculoskeletal: Joint pain, Muscle pain, Arm Pain, Leg Pain Neurological: Dizziness, Frequent Headaches Mental Health: Feeling down or depressed - Severe reduction in activity level. - General sense of well being: Feel worse OBJECTIVE BP 140/74 mmHg Pulse 68 Temp(Src) 36 ??C (96.8 ??F) (Tympanic) Ht 1.803 m (5' 11 ) Wt 81.647 kg (180 lb) BMI 25.12 kg/m2 Recent Blood Pressures 05/12/2017200005/12/2017201505/12/2017203105/19/2017 0844 BP: (!) 152/97 mmHg (!) 137/111 mmHg (!) 131/110 mmHg 140/74 mmHg Blood pressure method: - - - Electronic VS device Examination: Consitutional: Well-nourished, no acute distress, fair condition Eyes: lids, conjunctiva, and sclera normal, no scleral icterus. Cardiovascular: no peripheral edema Respiratory: breathing comfortably on room air, no tachypnea Skin: intact, no erythema, ecchymosis, rashes or lesions. Normal turgor. Psychological: oriented x 3, appropriate affect. Musculoskeletal: Forward flexion brings his fingertips to his knees, approximately 20 degrees of extention Results Reviewed CT images reviewed today, nondisplaced transverse process fractures of lumbar spine. ASSESSMENT Edilberto Hawley is a 61 y.o. male status post closed nondisplaced transverse process fractures of the lumbar spine. Encounter Diagnoses ICD-10-CM ICD-9-CM 1. Closed fracture of transverse process of lumbar vertebra with routine healing S32.009D V54.17 2. Encounter related to worker's compensation claim 04/16/2017 Back Z02.6 V70.3 PLAN Activity: Edilberto Hawley has the following activity restrictions: He should not drive. 10 pound lift limit. He does not have to use the back brace. No medication orders were placed in this encounter. Orders placed this encounter Procedures ??? FOLLOW-UP - ORTHOPAEDICS: Follow up with Dr. Fowler in 3-4 weeks. Staff Involved Staff and PA/MANAGER SOCIAL/PNP/NM (team effort NPP & Faculty documentation) Staff Physician Statement I have discussed the case with the non-physician provider and have personally documented the History, Physical Exam, and Assessment and Plan in the Staff Physician Note section as noted below. Staff Physician Note History: Edilberto is here today for followup. In the time since we last saw him we have obtained the CT scan of his lumbar spine. After our clinic visit last week apparently his pain was so severe he wound up in the emergency room. I really don't recall anything unusual about our clinic visit. In any event heis back to baseline. He did indicate today that he has been having some trouble with spontaneous syncopal spells. These have not been evaluated but apparently he is scheduled to see some physicians today regarding that problem. He remains in his brace. Physical Exam: On exam today he moved about the exam room very slowly. Range of motion of his lumbar spine under his own power was limited. I did have opportunity to review the CT scan of his lumbar spine which shows a nondisplaced transverse process fractures on the right from L1-L3. Assessment: Assessment is nondisplaced transverse process fractures of lumbar spine. Plan: I did advised him today that he can probably stop wearing his brace I would like to start him on some therapy pending workup for his syncopal spells. If he is having spontaneous syncopal spells underno circumstances should he be driving a vehicle. He should also probably not be driving a vehicle with the brace. In any event the syncopal spells need a workup. In the meantime we will wait for workup of the evaluation and depending on the results we can likely start him on some therapy for his back. He remains off work. Followup with me in about a month. Floyd Fowler MD Department of Orthopedics & Rehabilitation [phone] GEORGE Ayers [facility] Department of Orthopaedics [facility] documented in this encounter Miscellaneous Notes * Communication Body - Mariam Evans - 05/19/2017 8:45 AM CDT We saw Edilberto Hawley in Orthopaedics at the [facility] on 05/19/17. Enclosed is a copy of our notes. If you have any questions, please call my office. Sincerely, Floyd Fowler MD Department of Orthopedics & Rehabilitation [phone] documented in this encounter Plan of Treatment Not on file documented as of this encounter Visit Diagnoses Diagnosis Closed fracture of transverse process of lumbar vertebra with routine healing- Primary Encounter related to worker's compensation claim 04/16/2017 Back Other general medical examination for administrative purposes documented in this encounter Additional Health Concerns Assessment Noted Time PHQ-2 Depression Total Score: 0 04/09/20 17 2:55 PM CDT documented as of this encounter Care Teams Pit Shovel Operator Relationship Specialty Start Date End Date Coco Leos PA-C [address] [place] [address] PCP - General Physician Security Flex Utility Officer 02/17/17 12/15/22 documented as of this encounter
--- OUTSIDE RECORDS SUMMARY | 2024-11-23 00:16 | XMS_ITS | Encounter Summary ---
Author Organization [facility] Care Address [address] [place] [address] Phone Care Team Providers Care Liquid Sugar Melter Name Role Phone Coco Leos PA-C Primary Care Provider [phone] Reason for Referral * Referral (E. Within 3 months) - Closed Specialty Diagnoses / Procedures Referred By Contjessica t Referred To Contact Dermatology Diagnoses Skin lesion of right ear Coco Leos PA-C [address] [place] [address] Phone: tel: fax: [facility] - Dermatology [address] [place] [address] Phone: tel: fax: Referral ID Status Reason Start Date Expiration Date Visits Re quested Visits Authorized [id number] Closed 07/09/2017 12/31/2018 1 1 Question Answer Condition for consult: Lesion on skin Has patient had previous dermatological workup at an external site? No Priority: E. Within 3 months Requested Action: Referral (Transfer of care) Comments Clinical Question to be answered: Pt with concerning skin lesions on left side of neck and Right ear for malignancy, SCC. He has many other lesions, possible AK. History of severe sun virk in youth with blistering on multiple occassiona. Reason for Visit * Reason Comments Follow-up 3 month f/u, pain ma nagement Back Pain order MRI Encounter Details Date Type Department Care Team (Late st Contact Info) Description 07/09/2017 7:45 AM CDT Office Visit [facility] [address] [place] [phone] [address] [place] [address] Coco Leos PA-C [address] [place], [place] [id number] Social History Tobacco Use Types Packs/Day Years [...] Sign Reading Time Taken Comments Blood Pressure 132/88 07/09/2017 7:36 AM CDT Pulse 69 07/09/2017 7:36 AM CDT Temperature - - Respiratory Rate - - Oxygen Saturation - - Inhaled Oxygen Concentration - - Weight 86.2 kg (190 lb 0.6 oz) 07/09/2017 7:36 A M CDT Height - - Body Mass Index 26.52 06/09/2017 9:05 AM CDT documented in this encounter Patient Instructions * Discharge Instructions* Coco Leos PA-C - 07/09/2017 9:14 AM CDT ICD-10-CM ICD-9-CM 1. Memory difficulties R41.3 780.93 [facility] NEUROPSYCHOLOGY CONSULT - COGNITIVE ASSESSMENT I have referred to neuropsych for memory evaluation. they will call you to schedule. 2. Increased frequency of headaches R51 784.0 [facility] NEUROPSYCHOLOGY CONSULT - COGNITIVE ASSESSMENT propranolol 60 mg XR capsule take amitriptyline every night. start propranolol every morning. BRAIN rest recommended. NO SCREEN time for a week. If headaches are better, can slowly add back 3. Post concussive syndrome F07.81 310.2 [facility] NEUROPSYCHOLOGY CONSULT - COGNITIVE ASSESSMENT propranolol 60 mg XR capsule I recommend brain and body rest. follow up with me in 2 weeks. 4. Skin lesion of right ear L98.9 709.9 OUTPATIENT CONSULT DERMATOLOGY - ADULT I have referred to dermatology, they will call you to schedule. 5. Low back pain with radiation, right M54.41 724.2 6. Acute left lumbar radiculopathy M54.16 724.4 7. Other chronic pain G89.29 338.29 continue current regimen. 8. Urinary frequency R35.0 788.41 URINALYSIS WITH REFLEXED CULTURE AND MICROSCOPIC EXAM DRUGS OF ABUSE - URINE will check for infection. 9. Closed fracture of lumbar vertebra with routine healing, unspecified fracture morphology, unspecified lumbar vertebral level, subsequent encounter S32.009D V54.17 VITAMIN D, 25-HYDROXY keep follow up with [facility] and ortho. we can discuss again next month. documented in this encounter Progress Notes * Coco Leos PA-C - 07/09/2017 7:45 AM CDT Clinic Note Encounter Date: 07/09/2017 Subjective: Chief Complaint: Chief Complaint Patient presents with ??? Follow-up 3 month f/u, pain management ??? Back Pain order MRI History of Present Illness:Edilberto Hawley is a 61 y.o. Established pt whom I am familiar with, presents to the Department of Family Medicine [facility] for follow up chronic pain management. In interim since his last visit here he suffered an injury at work, a fall from a height and sustained a lumbar spine fracture, scalp laceration and injured his left shoulder. He has been followed by [facility] in [place] and ortho spine at [facility]. The [facility] doctors would like an MRI of his L spine but can't get approved through his workman's comp insurance. He has had MRI of head, XR of back, shoulder, CT of spine, MRI of shoulder. CT report is available for my review as ar PT notes and initial ED evaluation. He is also now having headaches daily. He also notes that his short term memory is very bad and is having major balance problems. He notes now that when he walks he veers to the left. He is doing current courses on the computer as he is on restrictions at work and is in the office. 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 He is doing physical therapy at [facility] twice a weak and balance therapy at [facility]. He now has a TENS unit that he is using. He also has A back brace that he wears when pain is very severe. Reports pain is currently at 7-8/10 most days on his chronic pain regimen. He has a long history of chronic pain but since the fall he has new pain of left low back that radiates to the left lower leg around the left anterior leg. Previous had lumbar radiculopathy of RLE. Now burning pain in LLE from low back wraps around in L3-4 distribution to the medial knee. He did have some bladder control issues [...] through us and utilizing the [facility]. He reports that he is on bid oxycontin 15 mg with prn oxycodone for breakthrough pain. He was on disability for a long time, but went back to work in February 2016. ?? His medications: Gabapentin 100 mg?? - Previousy on 300 mg, but 3000 mg dose was too high and it [...] worker's compensation claim 04/16/2017 Back 05/11/2017 ??? halfway current use of opiate analgesic 05/11/2017 ??? [...] Completed ??? HCV Screening Completed Past Surgical History Procedure Laterality Date ??? Tonsillectomy ??? Vasectomy ??? Joint replacement ??? Shoulder surgery ??? Revision total hip arthroplasty Left ??? Upper endoscopy ??? Elbow surgery Left Family History Problem Relation Age of Onset ??? Bleeding Prob Mother Current Outpatient Prescriptions Medication Sig Dispense Refill ??? amitriptyline 75 mg tablet Take 1 tablet (75 mg total) by mouth at bedtime. 30 tablet 11 ??? cholecalciferol (VITAMIN D3) 2,000 unit capsule Take 2,000 Units by mouth daily. ??? cyclobenzaprine 10 mg tablet Take 10 mg by mouth at bedtime. ??? gabapentin 100 mg capsule Take 1 capsule (100 mg total) by mouth at bedtime. 30 capsule 11 ??? lidocaine 5 % [...] by mouth 2 times daily. 60 tablet 0 ??? oxyCODONE-acetaminophen 10-325 mg per tablet Take 1 tablet by mouth every 4 hours as needed forPain. 120 tablet 0 ??? propranolol 60 mg XR capsule Take 1 capsule (60 mg total) by mouth daily. 30 capsule 2 ??? sennosides (SENEXON) 8.6 mg tablet Take 1 tablet by mouth 2 times daily as needed. No current facility-administered medications for this visit. No Known Allergies Social History Social History ??? Marital Status: Spouse Name: N/A ??? Number of Children: N/A ??? Years of Education: N/A Occupational History ??? Not on file. Social History Main Topics ??? Smoking status: Never Smoker ??? Smokeless tobacco: Never Used ??? Alcohol Use: No Comment: Not since 1996 ??? Drug Use: No Comment: None since 1996 (prior meth and cocaine) ??? Sexual Activity: Partners: Female Control/ Protection: Other Other Topics Concern ??? Not on file Social History Narrative Mr. 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 Review of Systems As above in HPI Objective: BP 132/88 mmHg Pulse 69 Wt 86.2 kg (190 lb 0.6 oz) Awake, alert, in no acute distress. Full affect, appropriate mood. VSS SCAT 3 total symptoms /22; symptom severity score 77/132. Concentration difficulties - Cognitive assessment 4/5 Immediate memory 10/15 Concentration 0/5 Balance: can not walk in tandem gait. Can not stand on 1 foot. rhomberg - swaying, severe, stopped before a minute Skin lesions on R ear and L neck. HRRR no CMR Lungs CTAB See media for photos of skin and copy of SCAT 3 assessment. The following are the results of tests done from the visit on 07/09/17 URINALYSIS WITH REFLEXED CULTURE AND MICROSCOPIC EXAM Narrative The following orders were created for panel order URINALYSIS WITH REFLEXED CULTURE AND MICROSCOPIC EXAM. Procedure Abnormality Status --------- ------ URINALYSIS WITH REFLEX C...[[id number]] Normal Final result MICROSCOPIC URINALYSIS[[id number]] Normal Final result URINE CULTURE, REFLEXED[[id number]] In process Please view results for these tests on the individual orders. URINALYSIS WITH REFLEX CULTURE Value Value Units Color, Urine Yellow Straw, Pale Yellow, Yellow, Clear, None Clarity, Urine Clear Clear pH, Urine 6.5 <9.0 Spec [place], Urine 1.015 >1.000-<1.030 Glucose, Urine Negative Negative Blood, Urine Negative Negative Ketones, Urine Negative Negative Protein, Urine Negative Negative Urobilinogen, Urine Normal Normal Bilirubin, Urine Negative Negative Leukocyte Esterase, Urine Negative Negative Nitrite, Urine Negative Negative MICROSCOPIC URINALYSIS Value Value Units WBCs-Urine Negative 0-5 /HPF RBCs-Urine Negative 0-2 /HPF Assessment/Plan: Pleasant 61-year-old male with chronic pain on chronic narcotic contract with recent injury at workresulting in lumbar spine fracture, head laceration and shoulder injury. Still being followed by [facility] in [place]. Since that incident he is now having [...] I Reviewed postconcussive syndrome with the patient. Scab 3 was performed and a score 77 and is positive for 19 of 22 symptoms. Copy of this is in the media portion of the chart. He did give the patient the of this today. I also issued a letter advising no work for 2 weeks. Explained treatment for postconcussive son drocarlie is brain rest antibody rest. He is working on the computer for8 hours a day is the worst thing he can be doing right now. His cognitive testing was not good. I referred him for neuropsych eval as I think it's important to get baseline assessment. Re: MRI of the lumbar spine, I [...] Patient is to followup with me in 2 weeks for reevaluation. Chronic pain medications renewed as previously prescribed. Please note that I spent over 90 minutes face to face with the patient and > 50% of that was counseling and coordinating of care as noted above. ICD-10-CM ICD-9-CM 1. Memory difficulties R41.3 780.93 [facility] NEUROPSYCHOLOGY CONSULT - COGNITIVE ASSESSMENT I have referred to neuropsych for memory evaluation. they will call you to schedule. 2. Increased frequency of headaches R51 784.0 [facility] NEUROPSYCHOLOGY CONSULT - COGNITIVE ASSESSMENT propranolol 60 mg XR capsule take amitriptyline every night. start propranolol every morning. BRAIN rest recommended. NO SCREEN time for a week. If headaches are better, can slowly add back 3. Post concussive syndrome F07.81 310.2 [facility] NEUROPSYCHOLOGY CONSULT - COGNITIVE ASSESSMENT propranolol 60 mg XR capsule I recommend brain and body rest. follow up with me in 2 weeks. 4. Skin lesion of right ear L98.9 709.9 OUTPATIENT CONSULT DERMATOLOGY - ADULT I have referred to dermatology, they will call you to schedule. 5. Low back pain with radiation, right M54.41 724.2 oxyCODONE (OXYCONTIN) 15 mg XR tablet 6. Acute left lumbar radiculopathy M54.16 724.4 7. Other chronic pain G89.29 338.29 oxyCODONE-acetaminophen 10-325 mg per tablet oxyCODONE (OXYCONTIN) 15 mg XR tablet continue current regimen. 8. Urinary frequency R35.0 788.41 URINALYSIS WITH REFLEXED CULTURE AND MICROSCOPIC EXAM DRUGS OF ABUSE - URINE URINALYSIS WITH REFLEX CULTURE MICROSCOPIC URINALYSIS URINE CULTURE, REFLEXED will check for infection. 9. Closed fracture of lumbar vertebra with routine healing, unspecified fracture morphology, unspecified lumbar vertebral level, subsequent encounter S32.009D V54.17 VITAMIN D, 25-HYDROXY keep follow up with [facility] and ortho. we can discuss again next month. 10. Other chronic pain G89.29 338.29 oxyCODONE-acetaminophen 10-325 mg per tablet oxyCODONE (OXYCONTIN) 15 mg XR tablet 11. Other chronic pain G89.29 338.29 oxyCODONE-acetaminophen 10-325 mg per tablet oxyCODONE (OXYCONTIN) 15 mg XR tablet continue current medication, see pain clinic Coco Leos PA-C [facility] Department of Family Medicine [facility] [address] [place] [address] [address] [place] [address] documented in this encounter Plan of Treatment Scheduled Referrals Name Type Priority Associated Diagnoses Order Schedule OUTPATIENT CONSULT DERMATOLOGY - ADULT Outpatient Referral Routine Skin lesion of right ear 1 Occurrences starting 07/09/2017 until 01/09/2019 documented as of this encounter Procedures Procedure Name Priority Date/Time Associated Diagnosis Comments URINALYSIS WITH REFLEXED CULTURE ORDER Routine 07/09/2017 9:36 AM CDT Urinary frequency MICROSCOPIC URINALYSIS Routine 07/09/2017 9:36 AM CDT Urinary frequency URINALYSIS WITH REFLEX CULTURE Routine 07/09/2017 9:36 AM CDT Urinary frequency DRUGS OF ABUSE - URINE Routine 07/09/2017 9:36 AM CDT Urinary frequency documented in this encounter Results * [facility] [...] OF SERVICE: ??09/08/2017 Patient: ?? Edilberto Hawley [facility] #: ??[id number] Date of Injury: April 16, 2017 Date [...] to us by Miguel Earl of the [employer] in [place], [place]. Premorbid Records Mr. Hawley was evaluated on 05/25/83 for an accident in which he suffered exposure to xylene. ??He suffered virk to his body. ??He was treated at [facility] and recovered. Mr. Hawley was evaluated in the ED at [facility] on 07/25/16 for right-sided thoracic back pain. ??He was treated with pain medications. He was seen at [facility] on 09/30/16 for chronic pain complaints. ??It was noted that he had been on disability ? for a long time,? but recently was able to go back to work, and this ? improved his mental health.? ?? Ms. Leos referred him for pain management. Ms. Leos saw him at [facility] on 01/12/17 for follow-up of numerous [...] demanding job. Postmorbid Records Records from [facility] in [place], [place], indicate that Mr. Hawley was seen [...] seen in the Occupational Medicine clinic at [facility] on 04/28/17. 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 ??He denied LOC. ??He had lumbar fractures. ??He has a PMH of sleep apnea and arthritis. ??He had carolann in his right occipital scalp. He was instructed to not return to work yet. ??His carolann were removed on 05/04/17, without difficulty. Mr. Hawley was seen at [facility] on 05/12/17. ??It was noted that he had a premorbid history of back pain, treated with ESIs (that were helpful). He currently reports worsening pain since the recent accident. ??He has a workers? compensation claim. He was a senior care opioid medication user. ??He was given activity [...] problems. Dr. Fowler saw Mr. Hawley in [facility] Orthopedics on 05/12/17. ??It was noted that Mr. Hawley had a premorbid history of back pain (e.g., seen at [facility] on 07/25/16 for severe back pain, and treated with KOTA). ??Mr. Hawley had a left hip replacement on 10/01/16. ?? His neurological status was intact. 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 ??He was given work restrictions and advised to not drive while taking sedating medications. Dr. Lake saw the patient in the [facility] ED on 05/12/17. ??Mr. 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 ??His lumbar fractures were healing [...] and concentration problems. ??She recommended neuropsychological evaluation. [facility] Identifying Information Edilberto Hawley is a 61-year-old, right-handed (+100) man. He completed 6 years of formal education. 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 Mr. Hawley was unaccompanied to our evaluation. ?? Mr. Hawley? 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 Records indicated he sustained a lumbar spine [...] for depression in the secondary to traumatic lot attendant experiences. He explained that he has not [...] II Faces I & II Spatial Span [place] Diagnostic Aphasia Exam: [place] Naming Test Complex Ideational Material Test Category [...] attention was low average. ?? Executive Functioning: [place]-making performance with the addition of executive demands [...] endorsement of rare or implausible symptoms, Mr. Hawley? s overall score was well beyond the [...] Professor, Neurology and Psychological and Brain Sciences STRAND FORMING MACHINE OPERATOR TIME, FACE TO FACE (COGNITIVE TESTING) 4 hours NEUROPSYCHOLOGIST TIME (COGNITIVE ASSESSMENT) 3 hours (Interview, interpreting and integrating findings, ??providing feedback & counseling, and preparing written report) NEUROPSYCHOLOGIST TIME (PERSONALITY ASSESSMENT) 1 hour (interpretation and integration of findings) ? us Coco Leos PA-C NEUROPSYCH ORDERABLES Final Result * MICROSCOPIC URINALYSIS (07/09/2017 9:36 AM CDT) WBC - Urine Negative 0 - 5 /HPF 07/09/2017 10:01 AM CDT [facility] RBC - Urine Negative 0 - 2 /HPF 07/09/2017 10:01 AM CDT [facility] Urine specimen (specimen) 07/09/2017 9:36 AM CDT 07/09/2017 9:51 AM CDT us Coco RICHEYC RANDOM URINE Final Result Performing Organization Address City/[facility] Co de Phone Number [facility] [address] [address] * URINALYSIS WITH REFLEX CULTURE (07/09/2017 9:36 AM CDT) Color - Urine Yellow Straw, Pale Yellow, Yellow, Clear, None 07/09/2017 9:58 AM CDT [facility] Clarity - Urine Clear Clear 07/09/2017 9:58 AM CDT [facility] pH - Urine 6.5 <9.0 07/09/2017 9:58 AM CDT [facility] Specific [place] - Urine 1.015 >1.000-<1.03 0 07/09/2017 9:58 AM CDT [facility] Glucose - Urine Negative Negative 07/09/2017 9:58 AM CDT [facility] Blood - Urine Negative Negative 07/09/2017 9:58 AM CDT [facility] Ketones - Urine Negative Negative 07/09/2017 9:58 AM CDT [facility] Protein - Urine Negative Negative 07/09/2017 9:58 AM CDT [facility] Urobilinogen - Urine Normal Normal 07/09/2017 9:58 AM CDT [facility] Bilirubin - Urine Negative Negative 07/09/2017 9:58 AM CDT [facility] Leukocyte Esterase - Urine Negative Negative 07/09/2017 9:58 AM CDT [facility] Nitrite - Urine Negative Negative 07/09/2017 9:58 AM CDT [facility] Urine specimen (specimen) 07/09/2017 9:36 AM CDT 07/09/2017 9:51 AM CDT us Coco RICHEYC RANDOM URINE Final Result Performing Organization Address City/[facility]/ZIP Co de Phone Number [facility] [address] [address] * VITAMIN D, 25-HYDROXY (07/09/2017 9:36 AM CDT) Vitamin D, 25-Hydroxy 24 20 - 80 ng/mL 07/09/2017 10:37 AM CDT [facility] Comment: This assay accurately quantifies the sum of 25-hydroxyvitamin D3 and 25-hydroxyvitamin D2. Endocrine Society, [place] of Medicine (IOM), and World Health Organization [...] 9:36 AM CDT 07/09/2017 9:53 AM CDT Coco Leos PA-C CHEMISTRY ORDERABLES Final R esult Performing Organization Address [facility] Co de Phone Number [facility] [address] [address] * (ABNORMAL) DRUGS OF ABUSE - URINE (07/09/2017 9:36 AM CDT) Amphetamines - Urine Negative Negative 07/09/2017 1:[address] [facility] Comment: Test cut-off: 1000 ng/mL for d-methamphetamine. Benzodiazepines - Urine Negative Negative 07/09/2017 1:[address] [facility] Comment: Test cut-off: ??100 ng/mL Cocaine - Urine Negative Negative 07/09/2017 1:[address] [facility] Comment: Test cut-off: ??300 ng/mL Opiates - Urine Negative Negative 07/09/2017 1:[address] [facility] Comment: Test cut-off: ??300 ng/mL for morphine Oxycodone - Urine Presumptive Positive(A) Negative 07/09/2017 1:[address] [facility] Comment: Test cut-off: ??300 ng/mL Amphetamines assay cross-reacts well with amphetamine and methamphetamine, as well as the tool designer apprentice amphetamines MDMA ( Ecstasy ), MDA, MDEA [...] 75,000 ng/mL). Please see Laboratory Services Handbook (http://healthcare.[facility]/path_handbook.index.html) for more detailed information on assay cross-reactivity. Drug of abuse screening tests are to be used for medical purposes only and not for non-medical purposes (e.g., employee, jig bore operator, or forensic testing). Urine specimen (specimen) 07/09/2017 9:36 AM CDT 07/09/2017 9:52 AM CDT Coco Leos PA-C RANDOM URINE Final Result [facility] [address] [place] [address] documented in this encounter Visit Diagnoses Diagnosis Memory difficulties- Primary Memory loss Increased frequency of headaches Headache Post concussive syndrome Postconcussion syndrome Skin lesion of right ear Low back pain with radiation, right Acute left lumbar radiculopathy Thoracic or lumbosacral neuritis or radiculitis, unspecified Other chronic pain Urinary frequency Closed fracture of lumbar vertebra with routine healing, unspecified fracture morphology, unspecified lumbar vertebral level, subsequent encounter Memory difficulties Memory loss Increased frequency of headaches Headache Post concussive syndrome Postconcussion syndrome documented in this encounter Additional Health Concerns Assessment Noted Time PHQ-2 Depression Total Score: 0 05/26/20 17 2:55 PM CDT documented as of this encounter Care Teams Liquid Sugar Melter Relationship Specialty Start Date End Date Coco Leos PA-C [address] [place] [id number] PCP - General Physician Savings Counselor 02/17/17 12/15/22 documented as of this encounter
--- OUTSIDE RECORDS SUMMARY | 2024-11-23 00:16 | XMS_ITS | Encounter Summary ---
Author Organization [facility] Care Address [address] [place] [address] Phone Care Team Providers Care Contract Technician Name Role Phone Coco Leos PA-C Primary Care Provider [phone] Reason for Visit * Reason Comments Patient Reported Reason For Visit WC RTN TRANSVERS PROCESS FRACTURES Encounter Details Date Type Department Care Team (Late st Contact Info) Description 06/09/2017 8:30 AM CDT Office Visit [facility] Orthopedic - Work Injury Recovery [address] [place] [phone] Floyd Fowler MD [address] [place], [place] [phone] Social History Tobacco Use Types Packs/Day Years [...] Sign Reading Time Taken Comments Blood Pressure 125/76 06/09/2017 9:05 AM CDT Pulse 67 06/09/2017 9:05 AM CDT Temperature 36.1 ??C (97 ??F) 06/09/2017 9:05 AM CDT Respiratory Rate - - Oxygen Saturation - - Inhaled Oxygen Concentration - - Weight 82.3 kg (181 lb 7 oz) 06/09/2017 9:05 AM CDT Height 180.3 cm (5' 10.98 ) 06/09/2017 9:05 AM C DT Body Mass Index 25.32 06/09/2017 9:05 AM CDT documented in this encounter Progress Notes * Floyd Fowler MD - 06/09/2017 8:30 AM CDT Clinic Note Encounter Date: 06/09/2017 Subjective: History of Present Illness/Past History {Edilberto is here for follow-up. His complaints are ongoing. He rates his pain at a 7 out of 10 today. We are of course following him for compression fracture at L3. He has workup pending for his syncopal spells. He also indicates that apparently has an MRI pending of the lumbar spine. I should note that I did not order an MRI of his lumbar spine. He is currently on light duty. Otherwise his past medical history, surgical history, social history, and review of systems are otherwise unchanged since his last clinic visit. Patient Active Problem List Diagnosis ??? Health care maintenance ??? Chronic pain ??? History of left hip replacement ??? History of repair of left rotator cuff ??? Encounter related to worker's compensation claim 04/16/2017 Back ??? [facility] current use of opiate analgesic ??? Closed fracture of transverse process of lumbar vertebra with routine healing WC Hx Patient Entered Questionnaires PAIN: Current Outpatient Prescriptions Medication Sig Dispense Refill [...] Take 20 mg by mouth daily. ??? [START ON 06/11/2017] oxyCODONE (OXYCONTIN) 15 mg XR tablet Take 1 tablet (15 mg total) by mouth2 times daily. Earliest Fill Date: 06/11/17 60 tablet 0 ??? [START ON 06/11/2017] oxyCODONE-acetaminophen 10-325 mg per tablet Take 1 tablet by mouth every 4 hours as needed for Pain. Earliest Fill Date: 06/11/17 120 tablet 0 ??? sennosides (SENEXON) 8.6 mg tablet Take 1 tablet by mouth 2 times daily as needed. No current facility-administered medications for this visit. No Known Allergies Past Surgical History Procedure Laterality Date ??? Tonsillectomy ??? Vasectomy ??? Joint replacement ??? Shoulder surgery ??? Revision total hip arthroplasty Left ??? Upper endoscopy ??? 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 Review of SystemsAll systems were reviewed and are negative except for: Constitutional: Night Sweats, NONE OF THESE Ears: Ringing in the ears, Trouble hearing, Dizziness Cardiovascular: Pain in legs Musculoskeletal: Joint pain, Muscle pain, Arm Pain, Arm Weakness, Leg Pain Neurological: Dizziness, Frequent Headaches Mental Health: Feeling down or depressed Other issues: pain back &legs level 5 to8 - Mild reduction in activity level. - General sense of well being: Feel worse Objective: BP 125/76 mmHg Pulse 67 Temp(Src) 36.1 ??C (97 ??F) (Tympanic) Ht 1.803 m (5' 10.98 ) Wt 82.3 kg (181 lb 7 oz) BMI 25.32 kg/m2 Body mass index is 25.32 kg/(m^2). Physical Exam WC Physical Exam On exam he was exquisitely tender to light palpation about the lumbar spine. His gait is quite slowand he does have very limited range of motion of the back. I did review his lumbar spine films fromtoday and the L3 compression fracture appears to be healing. {impression is L3 compression fracture. Encounter Diagnoses ICD-10-CM ICD-9-CM 1. Closed fracture of transverse process of lumbar vertebra S32.009A 805.4 2. Closed fracture of transverse process of lumbar vertebra with routine healing S32.009D V54.17 Staff Physician Comments Today I did discuss his condition with him. Continue with light duty for the time being. I will seehim in 1 month for recheck with new x-rays. I anticipate that his fracture will be healed at that time. Staff Involved Staff Only Floyd Fowler MD Department of Orthopedics & Rehabilitation [phone] Procedure Note None Floyd Fowler MD documented in this encounter Plan of Treatment Not on file documented as of this encounter Procedures Procedure Name Priority Date/Time Associated Diagnosis Comments L SPINE AP & LATERAL STANDING Routine 06/09/2017 8:52 AM CDT Closed fracture of transverse process of lumbar vertebra (HCC) documented in this encounter Results * L SPINE AP & LATERAL STANDING (06/09/2017 8:52 AM CDT) Anatomical Region Laterality Modality Spine RAD MSK modality Impressions 06/09/2017 2:50 PM CDT Findings/impression: There are 5 lumbar type vertebral bodies. Mild compression deformity of the superior endplate of the L3 vertebral body which is slightly worsened compared to 04/19/2017 and was not present on CT 04/16/2017. Minimal compression compression deformity T12 unchanged. The previously seen right-sided lumbar transverse process fractures are not well seen on this exam. Mild apex right lumbar scoliosis measuring approximately 10 degrees measured from L2 to L4. Moderate degenerative disc and facet changes in the lower lumbar spine. Narrative 06/09/2017 2:50 PM CDT Procedures: L SPINE AP & LATERAL STANDING Indication: Lumbar transverse process fracture, check alignment and healing. Technique: AP and lateral views of the lumbar spine Comparison: Lumbar spine radiographs 04/19/2017, CT lumbar spine 04/16/2017, and MRI lumbar spine 01/22/2017. Procedure Note Aranza Bradley MD - 06/09/2017 Procedures: L SPINE AP & LATERAL STANDING Indication: Lumbar transverse process fracture, check alignment and healing. Technique: AP and lateral views of the lumbar spine Comparison: Lumbar spine radiographs 04/19/2017, CT lumbar spine 04/16/2017, and MRI lumbar spine 01/22/2017. IMPRESSION Findings/impression: There are 5 lumbar type vertebral bodies. Mild compression deformity of the superior endplate of the L3 vertebral body which is slightly worsened compared to 04/19/2017 and was not present on CT 04/16/2017. Minimal compression compression deformity T12 unchanged. The previously seen right-sided lumbar transverse process fractures are not well seen on this exam. Mild apex right lumbar scoliosis measuring approximately 10 degrees measured from L2 to L4. Moderate degenerative disc and facet changes in the lower lumbar spine. us Floyd Fowler MD RAD GEN ORDERABLES Final Resul t documented in this encounter Visit Diagnoses Diagnosis Closed fracture of transverse process of lumbar vertebra with routine healing Closed fracture of transverse process of lumbar vertebra, with routine healing, subsequent encounter documented in this encounter Additional Health Concerns Assessment Noted Time PHQ-2 Depression Total Score: 0 04/09/20 17 2:55 PM CDT documented as of this encounter Care Teams Contract Technician Relationship Specialty Start Date End Date Coco Leos PA-C [address] [place] [id number] PCP - General Physician Shovel Loader Operator 02/17/17 12/15/22 documented as of this encounter
--- OUTSIDE RECORDS SUMMARY | 2024-11-23 00:16 | XMS_ITS | Encounter Summary ---
Author Organization [facility] Care Address [address] [place] [address] Phone Care Team Providers Care Rad Tech Name Role Phone Coco Leos PA-C Primary Care Provider [phone] Reason for Visit * Reason Comments Patient Reported Reason For Visit Encounter Details Date Type Department Care Team (Late st Contact Info) Description 05/13/2017 2:17 PM CDT - 05/13/2017 11:59 PM CDT Hospital Encounter Medical [facility] - Radiology - External [address] [place] [phone] Bridgett Ayers MD [address] [place], [place] [phone] Social History Tobacco Use Types Packs/Day Years [...] needed. 35.44 g 11 01/12/2017 5:22 PM INSIDE B2B SALES 01/12/2017 omeprazole 20 mg enteric coated capsule Take 20 mg by mouth daily. sennosides (SENEXON) 8.6 mg tablet Take 1 tablet by mouth 2 times daily as needed. amitriptyline 75 mg tablet Take 1 tablet (75 mg total) by mouth at bedtime. 30 tablet 11 09/08/2017 2:35 PM CDT 04/09/2017 8 calcium carbonate 500 mg (1,250 mg) -vitamin D2 200 units per tablet Take 2 tablets by mouth 2 times daily. 7 cyclobenzaprine 10 mg tablet Take 10 mg by mouth at bedtime. 07/19/2014 7 gabapentin 100 mg capsuleIndicatio ns:Other chronic pain Take 1 capsule (100 mg total) by mouth at bedtime. 30 capsule 11 01/12/2017 5:22 PM INSIDE [employer] SALES 01/12/2017 7 naloxone 1 mg/mL injection syringe [...] 2 times daily. Earliest Fill Date: 05/13/17 60 tablet 05/14/2017 5:01 PM CDT 05/13/2017 7 oxyCODONE-acetam inophen 10-325 mg per tabletIndication s:Other chronic pain Take 1 tablet by mouth every 4 hours as needed for Pain. Earliest Fill Date: 05/13/17 120 tablet 05/14/2017 5:01 PM CDT 05/13/2017 7 documented as of this encounter Plan [...] of use: As long as needed Video/Handout: [email or web address] [email or web address] [email or web address]-[email or web address] Pain Management - Exercise Pain Management Coco Vega PA-C Note: Exercise: General Aerobic ?? Duration: 3 to 5 days per week for 20 minutes per day ?? Intensity: Moderate Strengthening: neither Back nor General (for widespread pain) nor Shoulder ?? Intensity: Moderate ?? Duration: 2 to 4 days per week ?? Instructions: See attached documentation for details Video/Handout: [email or web address] [email or web address] [email or web address] documented as of this encounter Procedures Procedure Name Priority Date/Time Associated Diagnosis Comments EXTERNAL CT-STORE & INTERPRET Routine 05/13/2017 2:19 PM CDT Back pain documented in this encounter Results * EXTERNAL CT-STORE & INTERPRET (05/13/2017 2:19 PM CDT) Anatomical Region Laterality Modality Other Impressions 05/14/2017 1:39 PM CDT Impression: 1. Right-sided transverse process fractures, as described above. 2. Multilevel degenerative disease and facet arthropathy with severe neural foraminal narrowing on the right at L5-S1. 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 Narrative 05/14/2017 1:39 PM CDT Outside film interpretation requested. Patient name: Edilberto Hawley ??Exam was performed at 1423 hours on 04/16/[address] [facility]. 1,034 images are provided and interpreted on the in-house PACS. Procedure: CT exam of the lumbar spine without IV contrast. Clinical indication: Following the back. The patient is transverse process fractures. The patient has prior L5-S1 foraminal narrowing. Back pain. Findings: There are nondisplaced transverse fractures on the right from L1 through L3. There is a possible nondisplaced fracture of the right transverse process at L4. There are findings of Baastrup's disease between the spinous processes of L3 and L4. There is moderate degenerative disc disease and mild retrolisthesis at L2-L3. There is mild to moderate degenerative disc disease at L5-S1. There is bilateral severe facet arthropathy at L4-S1. There is severe neural foraminal narrowing on the right at L5-S1. There is bilateral moderate neural foraminal narrowing at L2-L3. 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 Procedure Note Aranza Bradley MD - 05/14/2017 Outside film interpretation requested. Patient name: Edilberto Hawley Exam was performed at 1423 hours on 04/16/[address] [facility]. 1,034 images are provided and interpreted on the in-house PACS. Procedure: CT exam of the lumbar spine without IV contrast. Clinical indication: Following the back. The patient is transverse process fractures. The patient has prior L5-S1 foraminal narrowing. Back pain. Findings: There are nondisplaced transverse fractures on the right from L1 through L3. There is a possible nondisplaced fracture of the right transverse process at L4. There are findings of Baastrup's disease between the spinous processes of L3 and L4. There is moderate degenerative disc disease and mild retrolisthesis at L2-L3. There is mild to moderate degenerative disc disease at L5-S1. There is bilateral severe facet arthropathy at L4-S1. There is severe neural foraminal narrowing on the right at L5-S1. There is bilateral moderate neural foraminal narrowing at L2-L3. 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 IMPRESSION Impression: 1. Right-sided transverse process fractures, as described above. 2. Multilevel degenerative disease and facet arthropathy with severe neural foraminal narrowing on the right at L5-S1. 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 us Floyd Fowler MD RAD EXTERNAL IMAGES Final Resu lt documented in this encounter Visit Diagnoses Diagnosis Back pain Backache, unspecified documented in this encounter Additional Health Concerns Assessment Noted Time PHQ-2 Depression Total Score: 0 04/09/20 17 2:55 PM CDT documented as of this encounter Care Teams Rad Tech Relationship Specialty Start Date End Date Coco Leos PA-C [address] [place] [address] PCP - General Physician Engraving Plate Maker 02/17/17 12/15/22 documented as of this encounter
--- OUTSIDE RECORDS SUMMARY | 2024-11-23 00:16 | XMS_ITS | Encounter Summary ---
Author Organization [facility] Care Address [address] [place] [address] Phone Care Team Providers Care Research Home Economist Name Role Phone Coco Leos PA-C Primary Care Provider [phone] Provider, No-Primary Care Primary Care Provider Unavailable Encounter Details Date Type Department Care Team (Late st Contact Info) Description 04/27/2017 Pharmacy Visit [facility] [address] [place] [phone] Social History Tobacco Use Types Packs/Day [...] documented as of this encounter Care Teams Research Home Economist Relationship Specialty Start Date End Date Coco Leos PA-C [address] [place], [place] [phone] PCP - General Physician Casting Cleaner 02/17/17 12/15/22 Provider, No-Primary Care [place] PCP - General 12/16/22 documented as of this encounter
--- OUTSIDE RECORDS SUMMARY | 2024-11-23 00:16 | XMS_ITS | Encounter Summary ---
Author Organization [facility] Care Address [address] [place] [address] Phone Care Team Providers Care Command And Control Officer Name Role Phone Coco Leos PA-C Primary Care Provider [phone] Provider, No-Primary Care Primary Care Provider Unavailable Encounter Details Date Type Department Care Team (Late st Contact Info) Description 05/13/2017 Pharmacy Visit [facility] [address] [place] [phone] Social History Tobacco Use Types Packs/Day [...] documented as of this encounter Care Teams Command And Control Officer Relationship Specialty Start Date End Date Coco Leos PA-C [address] [place], [place] [phone] PCP - General Physician Business Analytics Faculty Member 02/17/17 12/15/22 Provider, No-Primary Care [place] PCP - General 12/16/22 documented as of this encounter
--- OUTSIDE RECORDS SUMMARY | 2024-11-23 00:16 | XMS_ITS | Encounter Summary ---
Author Organization [facility] Care Address [address] [place] [address] Phone Care Team Providers Care Tilting Saw Operator Name Role Phone Coco Leos PA-C Primary Care Provider [phone] Provider, No-Primary Care Primary Care Provider Unavailable Encounter Details Date Type Department Care Team (Late st Contact Info) Description 07/09/2017 Pharmacy Visit [facility] [address] [place] [phone] Social History Tobacco Use Types Packs/Day [...] documented as of this encounter Care Teams Tilting Saw Operator Relationship Specialty Start Date End Date Coco Leos PA-C [address] [place], [place] [phone] PCP - General Physician Education Associate 02/17/17 12/15/22 Provider, No-Primary Care [place] PCP - General 12/16/22 documented as of this encounter
--- OUTSIDE RECORDS SUMMARY | 2024-11-23 00:16 | XMS_ITS | Encounter Summary ---
Author Organization [facility] Care Address [address] [place] [address] Phone Care Team Providers Care Design Checker Name Role Phone Coco Leos PA-C Primary Care Provider [phone] Reason for Visit * Reason Comments Patient Reported Reason For Visit Encounter Details Date Type Department Care Team (Latest Contact Info) Description 05/12/2017 4:36 PM CDT - 05/12/2017 6:41 PM CDT Hospital Encounter Medical [facility] - Radiology - External [address] [place] [phone] Floyd Fowler MD [address] [place] [address] Discharge Disposition: Home or Self Care Social [...] needed. 35.44 g 11 01/12/2017 5:22 PM FARM CROPS TEACHER 01/12/2017 omeprazole 20 mg enteric coated capsule [...] bedtime. 30 capsule 11 01/12/2017 5:22 PM FARM CROPS TEACHER 01/12/2017 7 naloxone 1 mg/mL injection syringe [...] As long as needed Video/Handout: [email or web address] Pain Management - Exercise Pain Management No Coco Leos PA-C Note: Exercise: General Aerobic ?? Duration: 3 to 5 days per week for 20 minutes per day ?? Intensity: Moderate Strengthening: neither Back nor General (for widespread pain) nor Shoulder ?? Intensity: Moderate ?? Duration: 2 to 4 days per week ?? Instructions: See attached documentation for details Video/Handout: [email or web address] documented as of this encounter Procedures Procedure Name Priority Date/Time Associated Diagnosis Comments EXTERNAL CT - STORE ONLY Routine 05/12/2017 4:37 PM CDT documented in this encounter Results * EXTERNAL CT - STORE ONLY (05/12/2017 4:37 PM CDT) us Floyd Fowler MD RAD EXTERNAL IMAGES Final Resu lt documented in this encounter Visit Diagnoses Not on filedocumented in this encounter Additional Health Concerns Assessment Noted Time PHQ-2 Depression Total Score: 0 04/09/20 17 2:55 PM CDT documented as of this encounter Care Teams Design Checker Relationship Specialty Start Date End Date Coco Leos PA-C [address] [place] [id number] PCP - General Physician Casing Mixer 02/17/17 12/15/22 documented as of this encounter
--- OUTSIDE RECORDS SUMMARY | 2024-11-23 00:16 | XMS_ITS | Encounter Summary ---
Author Organization [facility] Care Address [address] [place] [address] Phone Care Team Providers Care Sand Blaster Name Role Phone Coco Leos PA-C Primary Care Provider [phone] Reason for Visit * Reason Comments Medical Excuse Request Encounter Details Date Type Department Care Team (Late st Contact Info) Description 05/25/2017 [facility] - Orthopedics - Work Injury Recovery [address] [place] [phone] Floyd Fowler MD [address] [place], [place] [phone] Social History Tobacco Use Types Packs/Day Years [...] encounter Miscellaneous Notes * Telephone Encounter - Janiya Mays RN - 05/25/2017 12:33 PM CDT 05/24/2017@1654-Voicemail from patient reporting that he didn't feel good this morning and was hurting really bad so he didn't go to work. Patient reports that he currently has restrictions of no driving and no lifting greater than 10lbs. Patient reports that his employer is upset that he did not go to work and he would like a return phone call as soon as possible. 05/25/2017@7015-Left voicemail for patient to return my phone call. documented in this encounter Plan of Treatment [...] of use: As long as needed Video/Handout: [email or web address]-tens Pain Management - Exercise Pain Management No Coco Leos PA-C Note: Exercise: General Aerobic ?? Duration: 3 to 5 days per week for 20 minutes per day ?? Intensity: Moderate Strengthening: neither Back nor General (for widespread pain) nor Shoulder ?? Intensity: Moderate ?? Duration: 2 to 4 days per week ?? Instructions: See attached documentation for details Video/Handout: [email or web address] documented as of this encounter Visit Diagnoses Not on filedocumented in this encounter Additional Health Concerns Assessment Noted Time PHQ-2 Depression Total Score: 0 04/09/20 17 2:55 PM CDT documented as of this encounter Care Teams Sand Blaster Relationship Specialty Start Date End Date Coco Leos PA-C [address] [place] [id number] PCP - General Physician Repair Service Clerk 02/17/17 12/15/22 documented as of this encounter
--- OUTSIDE RECORDS SUMMARY | 2024-11-23 00:16 | XMS_ITS | Encounter Summary ---
Author Organization [facility] [place] [facility] Care Address [address] [place] [address] Phone Care Team Providers Care Legal Investigator Name Role Phone Coco Leos PA-C Primary Care Provider [phone] Reason for Visit * Reason Onset Date Comments Med Request 05/12/2017 Encounter Details Date Type Department Care Team (Late st Contact Info) Description 05/12/2017 Refill [facility] [address] [place] [phone] Nikko Han, [facility] [address] [place] [address] Social History Tobacco Use Types [...] encounter Miscellaneous Notes * Telephone Encounter - Mendy Reid - 05/13/2017 8:09 AM CDT Pharmacy is requesting refill of: Oxycontin, Oxycodone-acetaminophen Last visit: 04/09/2017 Next visit: 07/09/2017 Last written: 04/09/2017 Prescription destination: [facility] Mendy Reid CMA * Telephone Encounter - Nikko Han, [facility] - 05/12/2017 7:17 PM CDT IR Pain Medication Refill Service - Pharmacist Note Edilberto Hawley is enrolled in the Pain Medication Refill Service and requests renewal of Oxycodone CR 15mg # 60 and oxycodone/apap 10/325mg # 120 for OA shoulders, writs, hands and back. Level of Analgesia He reports an average pain score after medication of 8 in the last week. Functional Activity Improved abilities: working, concentration, mood, relationships, sleep and general activity Adverse Events Denies over-sedation, confusion, falls and constipation. Aberrant Behavior Last fill 04/09/17. There are no unexpected entries on the UNIT CONTROL WORKER and refill frequency is every 29-30 days. Opioid agreement signed 01/12/17 with Coco Leos pac. Urine Drug Screen: 01/12/17 (+) OC and metabolites as expected. Respiratory Depression Risk Score 3; long acting opioid prescribed, emergency visit within last 6 months and history of opioid abuse Morphine equivalent dose is 105 mg/day. air and water filler is available. Emergency intranasal naloxoneis warranted at this time. Prescriptions pended for Dr. Leos, last visit: 04/09; return visit: 07/09. Please send orders to [facility] pharmacy for pick-up. Thank you, Zain Han [facility] pharmacy documented in this encounter Plan of Treatment Not on file documented as of this encounter Visit Diagnoses Diagnosis Other chronic pain- Primary Low back pain with radiation, right documented in this encounter Additional Health Concerns Assessment Noted Time PHQ-2 Depression Total Score: 0 04/09/20 17 2:55 PM CDT documented as of this encounter Care Teams Legal Investigator Relationship Specialty Start Date End Date Coco Leos PA-C [address] [place] [address] PCP - General Physician [address] Magistrate 02/17/17 12/15/22 documented as of this encounter
--- OUTSIDE RECORDS SUMMARY | 2024-11-23 00:16 | XMS_ITS | Encounter Summary ---
Author Organization [facility] Care Address [address] [place] [address] Phone Care Team Providers Care Commercial Loan Coordinator Name Role Phone Coco Leos PA-C Primary Care Provider [phone] Reason for Visit * Reason Comments Patient Reported Reason For Visit Patient Reported Reason For Visit Encounter Details Date Type Department Care Team (Latest Contact Info) Description 06/09/2017 8:44 AM CDT - 06/09/2017 11:59 PM CDT Hospital Encounter Medical [facility] - Radiology - Musculoskeletal [address] [place] [phone] Aranza Bradley MD [address] [place], [place] [id number] Discharge Disposition: Home or Self Care Social [...] needed. 35.44 g 11 01/12/2017 5:22 PM OUTDOOR PURSUITS INSTRUCTOR 01/12/2017 omeprazole 20 mg enteric coated capsule [...] bedtime. 30 capsule 11 01/12/2017 5:22 PM OUTDOOR PURSUITS INSTRUCTOR 01/12/2017 7 naloxone 1 mg/mL injection syringe [...] mouth 2 times daily. Earliest Fill Date: 06/11/17 60 tablet 06/11/2017 11:56 AM CDT 06/11/2017 7 oxyCODONE-acetam inophen 10-325 mg per tabletIndication s:Other chronic pain Take 1 tablet by mouth every 4 hours as needed for Pain. Earliest Fill Date: 06/11/17 120 tablet 06/11/2017 11:56 AM CDT 06/11/2017 7 documented as of this encounter Plan [...] as of this encounter Care Teams Commercial Loan Coordinator Relationship Specialty Start Date End Date Coco Leos PA-C [address] [place] [address] PCP - General Physician Reinforcing Iron And Rebar Workers 02/17/17 12/15/22 documented as of this encounter
--- OUTSIDE RECORDS SUMMARY | 2024-11-23 00:16 | XMS_ITS | Encounter Summary ---
Author Organization [facility] Care Address [address] [place] [address] Phone Care Team Providers Care Bucket Hooker Name Role Phone Coco Leos PA-C Primary Care Provider [phone] Reason for Visit * Reason Comments Patient Reported Reason For Visit colono scopy, not diabetic, requesting IRL * Insurance Referral (Routine) - Closed Specialty Diagnoses / Procedures Referred By Contjessica t Referred To Contact Diagnoses History of colon polyps 04/05- pre call done, pt instructed to take MgCitrate and start CL on Sat at noon - kk 03/22/17-Need to do pre-op call, when called for pre-op ask pt to add 10 oz. Bottle of Mag citrate to his prep the night before his colonoscopy due to oxycodone per Ivy Hein. Sent prep letter via mail, RX [facility] pharmacy-[facility] colonoscopy, not diabetic, requesting IRL Procedures ENDOSCOPY COLONOSCOPY IRL COLONOSCOPY PROCEDURE Coco Leos PA-C [address] [place] [address] Phone: tel: fax: [facility] - Procedure Unit [address] [place] [address] Phone: tel: fax: Referral ID Status Reason Start Date Expiration Date Visits Re quested Visits Authorized [id number] Closed 04/08/2017 08/06/2017 1 1 Encounter Details Date Type Department Care Team ([facility] Contact Info) Description 05/03/2017 8:00 AM CDT Office Visit [facility] - Procedure Unit [address] [place] [phone] Yana Sweeney MD [address] [place] [address] Social History Tobacco Use Types [...] Sign Reading Time Taken Comments Blood Pressure 117/73 05/03/2017 9:57 AM CDT Pulse - - Temperature 36.5 ??C (97.7 ??F) 05/03/2017 9:42 AM CD T Respiratory Rate - - Oxygen Saturation 93% 05/03/2017 9:57 AM CDT Inhaled Oxygen Concentration - - Weight 80.4 kg (177 lb 4 oz) 05/03/2017 8:27 AM CDT Height 178.6 cm (5' 10.32 ) 05/03/2017 8:27 AM C DT Body Mass Index 25.21 05/03/2017 8:27 AM CDT documented in this encounter Patient Instructions * Discharge Instructions* Deidra Morgan, RN - 05/03/2017 9:48 AM CDT AFTER YOUR COLONOSCOPY Due to the effects of the medication (sedation) given during the procedure, for 24 hours: ??? Do not play sports. Avoid strenuous activities. ??? Do not drive. ??? Do not go to school or work. ??? Do not use machinery including kitchen equipment or shop tools. ??? Do not drink alcohol. ??? Do not make important decisions or sign documents. ??? A responsible adult needs to remain with you for 24 hours. After the procedure, you may experience some bloating and cramping. This is normal and should be relieved with walking and passing gas. Diet: You may return to your regular diet unless otherwise directed by your doctor. If the following occurs: ??? Rectal bleeding that lasts more than 48 hours or increases in amount. ??? Fever greater than 100.4 degrees F (or 38 degrees C). ??? Light headedness or dizziness. ??? Tenderness or sharp, severe abdominal pain that does not go away. Contact: [facility] at (8 am to 5 pm; Wednesday - Wednesday) OR After hours or on weekends or holidays, call the Hospital batch mixer operator at and ask to have the GI Aerial Planting And Cultivation Manager shrimp pond laborer paged. OR 24 hours a day call toll-free . To assist with calls, you may be asked some questionswhen using the toll-free number. Dr. Selvin Mcguire is your staff doctor. You may get a survey in the next few weeks asking about your visit. Please fill out and return the survey. We will let our staff know when they have been helpful and/or use your feedback to make the care we give better. Instruction Status: Reviewed with patient/caregiver and understanding verbalized. Copy provided. Finalized by: Deidra Morgan RN documented in this encounter H&P Notes * Yana Sweeney MD - 05/03/2017 8:00 AM CDT History & Physical/Procedural Sedation Assessment Date: 05/03/2017 Procedure: Colonoscopy Pre-procedure Diagnosis: Screening REVIEW OF SYSTEMS: Pulmonary: negative Cardiac: negative Gastrointestinal: negative Genitourinary: negative Neurological: negative Constitutional: negative NPO Status: Yes. Patient has been NPO per Anesthesia guidelines. HISTORY: Medical History: Past Medical History Diagnosis Date ??? Acid reflux ??? Chronic pain Surgical History: Past Surgical History Procedure Laterality Date ??? Tonsillectomy ??? Vasectomy ??? Joint replacement ??? Shoulder surgery ??? Revision total hip arthroplasty Left ??? Upper endoscopy Anesthetic History: Denies problems with previous procedural sedation Allergies: Review of patient's allergies indicates no known allergies. Medications: Medications at start of visit Medication Sig ??? amitriptyline 75 mg tablet Take 1 tablet (75 mg total) by mouth at bedtime. ??? cholecalciferol (VITAMIN D3) 2,000 unit capsule Take 2,000 Units by mouth daily. ??? cyclobenzaprine 10 mg tablet Take 10 mg by mouth at bedtime. ??? gabapentin 100 mg capsule Take 1 capsule (100 mg total) by mouth at bedtime. ??? lidocaine 5 % ointment Apply topically 2 times daily as needed. ??? naloxone 1 mg/mL injection syringe (2 mL) Gently screw vial of naloxone into barrel of syringe.Insert white cone into nostril. Give a short, vigorous push on end of vial to spray 1/2 of vial, 1ml, into each nostril. Repeat with second vial in 3 minutes, if no response. ??? omeprazole 20 mg enteric coated capsule Take 20 mg by mouth daily. ??? oxyCODONE (OXYCONTIN) 15 mg XR tablet Take 1 tablet (15 mg total) by mouth 2 times daily. ??? oxyCODONE-acetaminophen 10-325 mg per tablet Take 1 tablet by mouth every 4 hours as needed forPain. To last until 05/12/17 ??? sennosides (SENEXON) 8.6 mg tablet Take 1 tablet by mouth 2 times daily as needed. No facility-administered medications prior to visit. LAB RESULTS: Lab Results Component Value Date/Time PLATELET COUNT 212 01/12/2017 04:44 PM BUN 15 01/12/2017 04:44 PM CREATININE 0.9 01/12/2017 04:44 PM VITALS: Filed Vitals: 05/03/17 0826 05/03/17 0827 BP: 130/94 Height: 1.786 m (5' 10.32 ) Weight: 80.4 kg (177 lb 4 oz) SpO2: 100% PHYSICAL ASSESSMENT: HEENT: Mouth - normal Airway: No abnormalities noted ASA Class: 2. Mild systemic disease, which does not limit activity, e.g.: controlled hypertension or mild diabetes Mallampati Class: Grade II (Visualization of the soft palate, fauces and uvula) Cardiac: Regular Pulmonary: Clear bilaterally Gastrointestinal: Abdomen soft/non-distended SEDATION PLAN: Procedural sedation Yana Mcguire MD documented in this encounter Procedure Notes * Yana Sweeney MD - 05/03/2017 8:00 AM CDTAssociated Order(s): ENDOSCOPY COLONOSCOPY ENDOSCOPY COLONOSCOPY Colonoscopy Procedure Note Date: 05/03/2017 Referring Physician: Coco Leos Patient: Edilberto Hawley PCP: Coco Leos PA-C Age: 61 y.o. Sex: male Attending Staff: Yana Mcguire MD : 1955 Fellow: none Operation/Procedure: Colonoscopy with polypectomy (cold biopsy) Indications: Surveillance after previous colon neoplasia Colorectal Neoplasm Risks: Colorectal Adenoma History: Personal History: Location: [facility] - PROCEDURE UNIT Consent for Operation or Procedure: The risks, benefits, and alternatives of the procedure and sedative medications were discussed with the patient in detail. Potential complications including bleeding, infection, reaction to sedation medication, accidental perforation, or missing lesions were discussed with the patient. All questions were answered. Written consent was obtained. The patient elected to proceed with the procedure as described. Anesthesia: Proceduralist directed. from 05/03/17 9:14 AM to 05/03/17 9:33 AM. ?? Adverse Events: None ?? Sedation Medications: 1. Midazolam 10mg IV 2. Fentanyl 75mcg IV Procedure Description: Prior to proceeding, the patient's name, date of , and procedure were verified at the time out. The patient was then placed in the left lateral decubitus position and adequate sedation was achieved to proceed. A manual rectal examination was performed. The cecum was identified by landmarks including the appendix orifice and the ileocecal valve. The colonoscope was then slowly withdrawn and the mucosa was carefully examined. Excess air and fluid were removed during colonoscope withdrawal and the procedure terminated. The patient was in good condition and was transferred to the recovery area. Colon Preparation: Inadequate: cannot detect polyps of 5 mm in size in some areas Ancillary Maneuvers: Hand pressure Cecum Photograph: Appendiceal orifice and Ileocecal valve Scope Inserted: 05/03/17 9:17 AM Pathology Specimens: yes Cecum Reached: 05/03/17 9:24 AM Endoscopy Complications: None Scope Removed: 05/03/17 9:33 AM The procedure findings are listed below: [...] over 2 days) Yana Barrera MD Clinical Sort Line Department of Internal Medicine Division of Gastroenterology and Hepatology [address] [place] [address] Fax [email or web address] Addendum after Pathology Evaluation: 05/11/2017 10:40 AM Pathology: 3-10 tubular adenomas Repeat colonoscopy: Based on these results, I recommend a repeat colonoscopy in 1 year. Results disclosed by: Mail Results for orders placed or performed in visit on 05/03/17 SURGICAL PATHOLOGY EXAM Result Value Ref Range Case Report Surgical Pathology Case: [id number] Authorizing Provider: Yana Sweeney MD Collected: 05/03/2017 09:38 AM Ordering Location: [facility] - Procedure Unit Received: 05/03/2017 02:12 PM Pathologist: Ishmael Tirado MD Specimen: Colon, specify, DESCENDING COLON POLYP Diagnosis Descending colon, biopsy: Fragments of tubular adenoma(s). I have personally reviewed this case and edited the report as necessary. Clinical Information Polyp surveillance Jar 1: descending colon polyps Gross Description A. Received in formalin, in a container labeled Edilberto Hawley, [facility] number, and DESCENDING COLON POLYP , are four coyne-pink soft tissue fragments, 0.2 to 0.3 cm in greatest dimension. Submitted in toto in A1. BNS/rls Microscopic Description Microscopic examination performed. Performed by: Ishmael Tirado M.D. I have personally reviewed this case and edited the report as necessary. Ishmael Tirado MD documented in this encounter Plan of Treatment Not on file documented as of this encounter Procedures Procedure Name Priority Date/Time Associated Diagnosis Comments ABSTRACTED BY BILLING STAFF Routine 05/11/2017 10:41 AM CDT History of colon polyps SURGICAL PATHOLOGY EXAM Routine 05/03/2017 9:38 AM CDT documented in this encounter Results * ABSTRACTED BY BILLING STAFF (05/11/2017 10:41 AM CDT) Narrative Yana Sweeney MD - 05/11/2017 10:41 AM CDT Yana Sweeney MD ? 05/11/2017 10:41 AM ENDOSCOPY COLONOSCOPY Colonoscopy Procedure Note Date: ??05/03/2017 Referring Physician: Coco Leos ?? Patient: Edilberto Hawley PCP: Coco Leos PA-C Age: 61 y.o. Sex: male ??Attending Staff: Yana Mcguire MD : 1955 ??Fellow: none Operation/Procedure: ??Colonoscopy with polypectomy (cold biopsy) Indications: Surveillance after previous colon neoplasia Colorectal Neoplasm Risks: Colorectal Adenoma History: Personal History: Location: [facility] - PROCEDURE UNIT Consent for Operation or [...] over 2 days) Yana Barrera MD Clinical Sort Line Department of Internal Medicine Division of Gastroenterology and Hepatology [address] [place] [address] Fax [email or web address] Addendum after Pathology Evaluation: 05/11/2017 10:40 AM Pathology: 3-10 tubular adenomas Repeat colonoscopy: Based on these results, I recommend a repeat colonoscopy in 1 year. Results disclosed by: Mail Results for orders placed or performed in visit on 05/03/17 SURGICAL PATHOLOGY EXAM Result Value Ref Range Case Report ?Surgical Pathology ?Case: [id number] ? Authorizing Provider: ??Yana Sweeney MD ? [...] container labeled Edilberto Hawley, hospital number, and DESCENDING COLON POLYP , [...] ORDERABLES Edite d Result - Final * SURGICAL PATHOLOGY EXAM (05/03/2017 9:38 AM CDT) Case Report Surgical Pathology ?Case: [id number] ? Authorizing Provider: ??Yana Sweeney MD ? Collected: ? 05/03/2017 09:38 AM ? Ordering Location: ? [facility] - Procedure Unit ? Received: ?05/03/2017 02:12 PM ? Pathologist: ? Ishmael Tirado MD ? Specimen: ?Colon, specify, DESCENDING COLON POLYP ? 05/10/2017 6:05 PM CDT [facility] Diagnosis Descending colon, biopsy: Fragments of tubular adenoma(s). I have personally reviewed this case and edited the report as necessary. 05/10/2017 6:05 PM CDT [facility] Clinical Information Polyp surveillance Jar 1: descending colon polyps 05/10/2017 6:05 PM CDT [facility] Gross Description A. Received in formalin, in a container labeled Edilberto Hawley, [facility] number, and DESCENDING COLON POLYP , are four coyne-pink soft tissue fragments, 0.2 to 0.3 cm in greatest dimension. Submitted in toto in A1. BNS/rls 05/10/2017 6:05 PM CDT [facility] Microscopic Description Microscopic examination performed. Performed by: Ishmael Tirado M.D. I have personally reviewed this case and edited the report as necessary. Ishmael Tirado MD 05/10/2017 6:05 PM CDT [facility] Tissue specimen (specimen) COLON STRUCTURE / Unknown 05/03/2017 9:38 AM CDT 05/03/2017 2:12 PM CDT [facility] PATHOLOGY/CYTOLOGY ORDERABLES F inal Result [facility] [address] [place] [address] documented in this encounter Visit Diagnoses Diagnosis History of colon polyps Personal history of colonic polyps documented in this encounter Administered Medications Inactive Administered Medications - up to 3 most recent administrations Medication Order MAR Action Action Date Dose Rate Site fentanyl (pf) (SUBLIMAZE) 50 mcg/mL injection 12.5-50 mcg 12.5-50 mcg, Intravenous, As Needed, Other, Pain. Procedural sedation.?As needed during GI procedures.?May repeat as verbally directed by Physician., Starting on Wed05/03/17 at 0815, For 4 hours, Procedure - Intra-procedural Given 05/03/2017 9:19 AM CDT 25 mcg Given 05/03/2017 9:16 AM CDT 25 mcg Given 05/03/2017 9:14 AM CDT 25 mcg midazolam (PF) (VERSED) 1 mg/mL injection 0.5-5 mg 0.5-5 mg, Intravenous, As Needed, Other, Procedural sedation. As needed during GI procedures. May repeat as verbally directed by Physician., Starting on Wed05/03/17 at 0815, For 4 hours, Procedure - Intra-procedural Given 05/03/2017 9:25 AM CDT 2 mg Given 05/03/2017 9:21 AM CDT 2 mg Given 05/03/2017 9:19 AM CDT 2 mg sodium chloride 0.9% continuous infusion at 100-999 mL/hr, Intravenous, Continuous, Starting on Wed05/03/17 at 0900, For 4 hours, Procedure - Pre-procedural Rate Change 05/03/2017 9:18 AM CDT 900 mL/hr Rate Verify 05/03/2017 8:36 AM CDT 200 mL/hr New Bag 05/03/2017 8:35 AM CDT 200 mL/hr documented in this encounter Additional Health Concerns Assessment Noted Time PHQ-2 Depression Total Score: 0 04/09/20 17 2:55 PM CDT documented as of this encounter Care Teams Bucket Hooker Relationship Specialty Start Date End Date Coco Leos PA-C [address] [place] [address] PCP - General Physician Probation And Parole Officer 02/17/17 12/15/22 documented as of this encounter
--- OUTSIDE RECORDS SUMMARY | 2024-11-23 00:16 | XMS_ITS | Encounter Summary ---
Author Organization [facility] Care Address [address] [place] [address] Phone Care Team Providers Care Textiles Sales Representative Name Role Phone Coco Leos PA-C Primary Care Provider [phone] Provider, No-Primary Care Primary Care Provider Unavailable Encounter Details Date Type Department Care Team (Late st Contact Info) Description 06/11/2017 Pharmacy Visit RX [facility] [address] [place] [phone] Social History Tobacco Use Types Packs/Day [...] documented as of this encounter Care Teams Textiles Sales Representative Relationship Specialty Start Date End Date Coco Leos PA-C [address] [place], [place] [id number] PCP - General Physician Mechanical Engineering Technician 02/17/17 12/15/22 Provider, No-Primary Care [place] PCP - General 12/16/22 documented as of this encounter
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
--- OUTSIDE RECORDS SUMMARY | 2024-11-23 00:16 | XMS_ITS | Encounter Summary ---
Author Organization [facility] Care Address [address] [place] [address] Phone Care Team Providers Care Skilled Nursing Professional Name Role Phone Coco Leos PA-C Primary Care Provider [phone] Reason for Visit * Reason Comments Post-op Follow-up Call Encounter Details Date Type Department Care Team (Late st Contact Info) Description 05/04/2017 Nurse Triage [place] - IRL - Procedure Unit [address] [place] [phone] Ashli Burr [address] [place] [address] Social History Tobacco Use Types Packs/Day Years [...] documented as of this encounter Care Teams Skilled Nursing Professional Relationship Specialty Start Date End Date Coco Leos PA-C [address] [place] [address] PCP - General Physician Automotive Hardware Engineer 02/17/17 12/15/22 documented as of this encounter
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
--- OUTSIDE RECORDS SUMMARY | 2024-11-23 00:16 | XMS_ITS | Encounter Summary ---
Author Organization [facility] Care Address [address] [place] [address] Phone Care Team Providers Care Supervisor Alum Plant Name Role Phone Coco Leos PA-C Primary Care Provider [phone] Reason for Visit * Reason Onset Date Comments Loss of Consciousness 05/12/2017 Encounter Details Date Type Department Care Team (Late st Contact Info) Description 05/12/2017 Nurse [facility] Call Center [address] [place] [phone] Gin Miguel RN [address] [place] [address] Social History Tobacco Use Types [...] encounter Miscellaneous Notes * Telephone Encounter - Gin Miguel RN - 05/12/2017 5:35 PM CDT Protocol: [id number] 1. ONSET: How long were you unconscious? (minutes) When did it happen? Response: fainted 2. CONTENT: What happened during period of unconsciousness? (e.g., seizure activity) Response: first time he went to one knee reporting pain and SOB; second time in the car passed out and slumped over ; passing out at home from dizziness, states he goes to one knee first when hefeels it coming on. 3. MENTAL STATUS: Alert and oriented now? (oriented x 3 = name, month, location) Response: oriented 4. TRIGGER: What do you think caused the fainting? What were you doing just before you fainted? (e.g., exercise, sudden standing up, prolonged standing) Response: ORT visit 5. RECURRENT SYMPTOM: Have you ever passed out before? If so, ask: When was the last time? and What happened that time? Response: 6. INJURY: Did you sustain any injury during the fall? Response: no 7. CARDIAC SYMPTOMS: Have you had any of the following symptoms: chest pain, difficulty breathing,palpitations? Response: difficulty breathing when the first incident happened 8. NEUROLOGIC SYMPTOMS: Have you had any of the following symptoms: headache, numbness, vertigo, weakness? Response: dizziness; Vertigo when standing Negative: Still unconscious Negative: Difficult to awaken or acting confused (e.g., disoriented, slurred speech) Negative: Shock suspected (e.g., cold/pale/clammy skin, too weak to stand) Negative: Difficulty breathing Negative: Bluish lips or face now Negative: Chest pain Denies chest pain; states: It's in my back Negative: Extra heart beats or heart is beating fast (i.e., palpitations ) Negative: Bleeding (e.g., vomiting blood, rectal bleeding or tarry stools, severe vaginal bleeding) (EXCEPTION: fainted from sight of small amount of blood; small cut or abrasion) Negative: Fainted suddenly after medicine, allergic food or bee sting Affirmative: Age > 50 years (EXCEPTION: occurred > 1 hour ago AND now feels completely fine) Disposition of Call EMS 911 Now suggested. Edilberto Hawley [phone] called about passing out multiple times today after his Orthopedic visit. He reports SOB with his back brace on. At his appointment without the brace was told to bend overforward and backward as far as he could. On the way out of the clinic experienced increasing SOB. He states he went down to one knee in the parking garage. On the way home he pulled over, just after t he rest stop, put on his blinkers, then passed out and slumped over in the seat. His drovehim the rest of the way home. At home he reports passing out again; noted he went to one knee. Heendorses severe pain in his back and ribs with vertigo. Advice given per nurse triage disposition and care advice. Edilberto Hawley verbalized understanding and will call back with further questions or concerns. * Telephone Encounter - Gin Miguel RN - 05/12/2017 5:30 PM CDT ----- Message from Margarita Robbins sent at 05/12/2017 5:29 PM CDT ----- >> Margarita Robbins 05/12/2017 05:29 PM Phone Line: RAGHAVENDRA Edilberto Hawley, , : 1955 , Age: 61 y.o. Clinic patient is seen in: orthopaedic (work injury) Relationship (if not patient): Brief Reason for Call/Symptoms: fainted 3 times today Call Back Number: [phone] documented in this encounter Plan of Treatment Not on file documented as of this encounter Visit Diagnoses Not on filedocumented in this encounter Additional Health Concerns Assessment Noted Time PHQ-2 Depression Total Score: 0 04/09/20 17 2:55 PM CDT documented as of this encounter Care Teams Supervisor Alum Plant Relationship Specialty Start Date End Date Coco Leos PA-C [address] [place] [id number] PCP - General Physician Wood Technologist 02/17/17 12/15/22 documented as of this encounter
--- OUTSIDE RECORDS SUMMARY | 2024-11-23 00:17 | XMS_ITS | Encounter Summary ---
Author Organization [facility] Care Address [address] [place] [address] Phone Care Team Providers Care Heel Seat Pounder Name Role Phone Provider, No-Primary Care Primary Care Provider Unavailable Encounter Details Date Type Department Care Team (Late st Contact Info) Description 01/13/2017 Letter (Out) [facility] - Procedure Unit [address] [place] [address] Talia Jasso, RN [address] [place] [address] Social History Tobacco Use Types Packs/Day Years Used Date Smoking Tobacco: Never Smokeless Tobacco: Never Alcohol Use Standard Drinks/Week Comments No 0 (1 standard drink = 0.6 oz pur e alcohol) Rarely Sex and Gender Information Value Date Recorded [...] Noted Time PHQ-2 Depression Total Score: 0 09/30/20 16 3:26 PM SENIOR ACCOUNTING ASSOCIATE documented as of this encounter Care Teams Heel Seat Pounder Relationship Specialty Start Date End Date Provider, No-Primary Care [place] PCP - General 01/12/17 02/16/17 documented as of this encounter
--- OUTSIDE RECORDS SUMMARY | 2024-11-23 00:17 | XMS_ITS | Encounter Summary ---
Author Organization [facility] Care Address [address] [place] [address] Phone Care Team Providers Care Egg Worker Name Role Phone Coco Leos PA-C Primary Care Provider [phone] Provider, No-Primary Care Primary Care Provider Unavailable Encounter Details Date Type Department Care Team (Late st Contact Info) Description 04/19/2017 Ancillary Orders [facility] Medicine [address] [place] [phone] Coco Leos PA-C [address] [place] [address] Social History Tobacco Use Types [...] this encounter Results * HIP AP & LATERAL LEFT (04/19/2017 12:14 PM CDT) Anatomical Region Laterality Modality lower extremity Computed Radiogr aphy Impressions 04/20/2017 10:19 AM CDT impression: Left total hip replacement. No acute fracture or dislocation. Components of left total hip arthroplasty demonstrate no evidence of hardware complication. Narrative 04/20/2017 10:19 AM CDT Procedure: HIP AP & LATERAL LEFT Clinical Indication: history of CAROLANN - left, had fall onto L hip 1 month ago with increase in L hip pain. Comparison: ??None. Findings/ Procedure Note Karen Cruz MD - 04/20/2017 Procedure: HIP AP & LATERAL LEFT Clinical Indication: history of CAROLANN - left, had fall onto L hip 1 month ago with increase in L hip pain. Comparison: None. Findings/ IMPRESSION impression: Left total hip replacement. No acute fracture or dislocation. Components of left total hip arthroplasty demonstrate no evidence of hardware complication. us Coco Leos PA-C RAD GEN ORDERABLES Final Res ult documented in this encounter Visit Diagnoses Diagnosis History of left hip replacement Fall, sequela History of left hip replacement- Primary Fall, sequela documented in this encounter Additional Health Concerns Assessment Noted Time PHQ-2 Depression Total Score: 0 04/09/20 17 2:55 PM CDT documented as of this encounter Care Teams Egg Worker Relationship Specialty Start Date End Date Coco Leos PA-C [address] [place] [id number] PCP - General Physician Ship Washer 02/17/17 12/15/22 Provider, No-Primary Care [place] PCP - General 12/16/22 documented as of this encounter
--- OUTSIDE RECORDS SUMMARY | 2024-11-23 00:17 | XMS_ITS | Encounter Summary ---
Author Organization [facility] Address [address] [place] [address] Phone Care Team Providers Care Stage Electrician Helper Name Role Phone Coco Leos PA-C Primary Care Provider [phone] Reason for Visit * Reason Comments Patient Reported Reason For Visit Patient Reported Reason For Visit Encounter Details Date Type Department Care Team (Latest Contact Info) Description 04/19/2017 11:53 AM CDT - 04/19/2017 11:59 PM CDT Hospital Encounter [place] - [facility] - Radiology [address] [phone] Carlos Enrique Segal MD [address] [place] [address] Discharge Disposition: Home or Self [...] needed. 35.44 g 11 01/12/2017 5:22 PM LPN CMA 01/12/2017 omeprazole 20 mg enteric coated capsule [...] bedtime. 30 capsule 11 01/12/2017 5:22 PM LPN CMA 01/12/2017 7 naloxone 1 mg/mL injection syringe [...] by mouth 2 times daily. 60 tablet 04/09/2017 5:16 PM CDT 04/09/2017 7 oxyCODONE-acetam inophen 10-325 mg per tabletIndication s:Other chronic pain Take 1 tablet by mouth every 4 hours as needed for Pain. To last until 05/12/17 120 tablet 04/09/2017 5:16 PM CDT 04/09/2017 7 polyethylene glycol-electroly te (NULYTELY) suspensionIndica tions:bowel evacuation Take 4,000 mL by mouth once. Take as directed the evening before your procedure. 4000 mL 04/29/2017 4:41 PM CDT 03/22/2017 7 documented as of this encounter Plan of Treatment Not on file documented as of this encounter Procedures Procedure Name Priority Date/Time Associated Diagnosis Comments L SPINE AP & LATERAL Routine 04/19/2017 12:14 PM CDT Fall, sequela documented in this encounter Results * (ABNORMAL) L SPINE AP & LATERAL (04/19/2017 12:14 PM CDT) Anatomical Region Laterality Modality Spine Computed Radiogr aphy Impressions 04/19/2017 3:41 PM CDT Impression: 1. ??New superior endplate compression deformity at L3, compared to prior MRI. 2. Similar mild retrolisthesis of L2 on L3. Narrative 04/19/2017 3:41 PM CDT Procedures: L SPINE AP & LATERAL Indication: Fall on left low back. Technique: AP and lateral views of the lumbar spine. Comparison: MRI dated 01/22/2017. Findings: There are 5 lumbar type vertebrae. Mild apex right scoliosis of the lumbar spine. Superior endplate compression deformity at the anterior L3 vertebral body. This is new compared to MRI comparison. Similar mild retrolisthesis of L2 on L3. Similar disc space loss at L2-3. Moderate facet arthropathy in the lower lumbar spine. Partial visualization of the total left hip arthroplasty. Procedure Note Ministerio Gore MD - 04/19/2017 Procedures: L SPINE AP & LATERAL Indication: Fall on left low back. Technique: AP and lateral views of the lumbar spine. Comparison: MRI dated 01/22/2017. Findings: There are 5 lumbar type vertebrae. Mild apex right scoliosis of the lumbar spine. Superior endplate compression deformity at the anterior L3 vertebral body. This is new compared to MRI comparison. Similar mild retrolisthesis of L2 on L3. Similar disc space loss at L2-3. Moderate facet arthropathy in the lower lumbar spine. Partial visualization of the total left hip arthroplasty. IMPRESSION Impression: 1. New superior endplate compression deformity at L3, compared to prior MRI. 2. Similar mild retrolisthesis of L2 on L3. us Coco Leos PA-C RAD GEN ORDERABLES Final Res ult documented in this encounter Visit Diagnoses Diagnosis Fall, sequela documented in this encounter Additional Health Concerns Assessment Noted Time PHQ-2 Depression Total Score: 0 04/09/20 17 2:55 PM CDT documented as of this encounter Care Teams Stage Electrician Helper Relationship Specialty Start Date End Date Coco Leos PA-C [address] [place] [id number] PCP - General Physician Home Health Nurse Licensed Practical 02/17/17 12/15/22 documented as of this encounter
--- OUTSIDE RECORDS SUMMARY | 2024-11-23 00:17 | XMS_ITS | Encounter Summary ---
Author Organization [facility] Care Address [address] [place] [address] Phone Care Team Providers Care Bottle Dealer Name Role Phone Coco Leos PA-C Primary Care Provider [phone] Provider, No-Primary Care Primary Care Provider Unavailable Encounter Details Date Type Department Care Team (Late st Contact Info) Description 03/15/2017 Pharmacy Visit RX [facility] [address] [place] [phone] Social History Tobacco Use Types Packs/Day [...] Total Score: 0 09/30/20 16 3:26 PM WIREWORKER SUPERVISOR documented as of this encounter Care Teams Bottle Dealer Relationship Specialty Start Date End Date Coco Leos PA-C [address] [place], [place] [phone] PCP - General Physician Control Panel Operator 02/17/17 12/15/22 Provider, No-Primary Care [place] PCP - General 12/16/22 documented as of this encounter
--- OUTSIDE RECORDS SUMMARY | 2024-11-23 00:17 | XMS_ITS | Encounter Summary ---
Author Organization [facility] Care Address [address] [place] [address] Phone Care Team Providers Care Fiscal Specialist Name Role Phone Provider, No-Primary Care Primary Care Provider Unavailable Coco Leos PA-C Primary Care Provider [phone] Provider, No-Primary Care Primary Care Provider Unavailable Encounter Details Date Type Department Care Team (Late st Contact Info) Description 02/11/2017 Pharmacy Visit RX [facility] [address] [place] [phone] Social History Tobacco Use Types Packs/Day [...] Total Score: 0 09/30/20 16 3:26 PM QUALITY CONTROL PROJECTIONIST documented as of this encounter Care Teams Fiscal Specialist Relationship Specialty Start Date End Date Provider, No-Primary Care [place] PCP - General 01/12/17 02/16/17 Coco Leos PA-C [address] [place], [place] [phone] PCP - General Physician Certified Orthoptist 02/17/17 12/15/22 Provider, No-Primary Care [place] PCP - General 12/16/22 documented as of this encounter
--- OUTSIDE RECORDS SUMMARY | 2024-11-23 00:17 | XMS_ITS | Encounter Summary ---
Author Organization [facility] Care Address [address] [place] [address] Phone Care Team Providers Care Competitive Intelligence Manager Name Role Phone Coco Leos PA-C Primary Care Provider [phone] Provider, No-Primary Care Primary Care Provider Unavailable Encounter Details Date Type Department Care Team (Late st Contact Info) Description 03/11/2017 Pharmacy Visit RX [facility] [address] [place] [phone] Social History Tobacco Use Types Packs/Day [...] Total Score: 0 09/30/20 16 3:26 PM CORRECTIONAL SUPERVISING COOK documented as of this encounter Care Teams Competitive Intelligence Manager Relationship Specialty Start Date End Date Coco Leos PA-C [address] [place], [place] [phone] PCP - General Physician Parts Sales Manager 02/17/17 12/15/22 Provider, No-Primary Care [place] PCP - General 12/16/22 documented as of this encounter
--- OUTSIDE RECORDS SUMMARY | 2024-11-23 00:17 | XMS_ITS | Encounter Summary ---
Author Organization [facility] Care Address [address] [place] [address] Phone Care Team Providers Care Director Energy Name Role Phone Coco Leos PA-C Primary Care Provider [phone] Reason for Visit * Reason Comments Patient Reported Reason For Visit Patient Reported Reason For Visit Encounter Details Date Type Department Care Team (Latest Contact Info) Description 04/19/2017 11:51 AM CDT - 04/19/2017 11:52 AM CDT Hospital Encounter [place] - [facility] - Radiology [address] [phone] Carlos Enrique Segal MD [address] [place] [address] Discharge Disposition: Home or Self [...] needed. 35.44 g 11 01/12/2017 5:22 PM 1ST GRADE TEACHER 01/12/2017 omeprazole 20 mg enteric coated [...] bedtime. 30 capsule 11 01/12/2017 5:22 PM 1ST GRADE TEACHER 01/12/2017 7 naloxone 1 mg/mL injection [...] Date/Time Associated Diagnosis Comments HIP AP & LATERAL LEFT Routine 04/19/2017 12:14 PM CDT History of left hip replacement Fall, sequela documented in this encounter Results * HIP [...] History of left hip replacement Fall, sequela documented in this encounter Additional Health Concerns Assessment Noted Time PHQ-2 Depression Total Score: 0 04/09/20 17 2:55 PM CDT documented as of this encounter Care Teams Director Energy Relationship Specialty Start Date End Date Coco Leos PA-C [address] [place] [address] PCP - General Physician China Painter 02/17/17 12/15/22 documented as of this encounter
--- OUTSIDE RECORDS SUMMARY | 2024-11-23 00:17 | XMS_ITS | Encounter Summary ---
Author Organization [facility] Care Address [address] [place] [address] Phone Care Team Providers Care Assistant Unit Forester Name Role Phone Coco Leos PA-C Primary Care Provider [phone] Reason for Visit * Reason Onset Date Comments Appointment Info 03/22/2017 Encounter Details Date Type Department Care Team (Late st Contact Info) Description 03/22/2017 Telephone [place] [facility] - Procedure Unit [address] [place] [address] Jacy Kim LPN [address] [place], [place] [phone] Social History Tobacco Use Types Packs/Day Years [...] Total Score: 0 09/30/20 16 3:26 PM MAINTENANCE AND CUSTODIAN SUPERVISOR documented as of this encounter Care Teams Assistant Unit Forester Relationship Specialty Start Date End Date Coco Leos PA-C [address] [place], [place] [phone] PCP - General Physician Retail Pharmacist 02/17/17 12/15/22 documented as of this encounter
--- OUTSIDE RECORDS SUMMARY | 2024-11-23 00:17 | XMS_ITS | Encounter Summary ---
Author Organization [facility] Care Address [address] [place] [address] Phone Care Team Providers Care Weight Control Lecturer Name Role Phone Coco Leos PA-C Primary Care Provider [phone] Reason for Visit * Reason Comments Patient Reported Reason For Visit Patient Reported Reason For Visit Encounter Details Date Type Department Care Team (Latest Contact Info) Description 04/19/2017 11:53 AM CDT - 04/19/2017 11:59 PM CDT Hospital Encounter [place] - [facility] - Radiology [address] [phone] Carlos Enrique Segal MD [address] [place] [address] Discharge Disposition: Home or Self [...] needed. 35.44 g 11 01/12/2017 5:22 PM PIANO AND ORGAN REFINISHER 01/12/2017 omeprazole 20 mg enteric coated capsule [...] bedtime. 30 capsule 11 01/12/2017 5:22 PM PIANO AND ORGAN REFINISHER 01/12/2017 7 naloxone 1 mg/mL injection syringe [...] Procedure Name Priority Date/Time Associated Diagnosis Comments LEFT WRIST PA, LAT, OBLIQUE & SCAPHOID Routine 04/19/2017 12:15 PM CDT Left wrist pain Fall, sequela documented in this encounter Results * LEFT WRIST PA, LAT, OBLIQUE & SCAPHOID (04/19/2017 12:15 PM CDT) Anatomical Region Laterality Modality wrist / hand Computed Radiogr aphy Impressions 04/20/2017 10:20 AM CDT Findings/impression: No acute fracture or dislocation. If there is continued clinical concern for scaphoid fracture, recommend treatment and follow-up in 7-10 days. 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 There is carpal bossing, a normal variant. Narrative 04/20/2017 10:20 AM CDT Procedure: LEFT WRIST PA, LAT, OBLIQUE & SCAPHOID Clinical Indication: fall onto left wrist 1 month ago. Comparison: None. Procedure Note Karen Cruz MD - 04/20/2017 Procedure: LEFT WRIST PA, LAT, OBLIQUE & SCAPHOID Clinical Indication: fall onto left wrist 1 month ago. Comparison: None. IMPRESSION Findings/impression: No acute fracture or dislocation. If there is continued clinical concern for scaphoid fracture, recommend treatment and follow-up in 7-10 days. 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 There is carpal bossing, a normal variant. Coco Leos PA-C RAD GEN ORDERABLES Final Res ult documented in this encounter Visit Diagnoses Diagnosis Left wrist pain Pain in joint, forearm Fall, sequela documented in this encounter Additional Health Concerns Assessment Noted Time PHQ-2 Depression Total Score: 0 04/09/20 17 2:55 PM CDT documented as of this encounter Care Teams Weight Control Lecturer Relationship Specialty Start Date End Date Coco Leos PA-C [address] [place] [address] PCP - General Physician Assistant Director Of Admissions 02/17/17 12/15/22 documented as of this encounter
--- OUTSIDE RECORDS SUMMARY | 2024-11-23 00:17 | XMS_ITS | Encounter Summary ---
Author Organization [facility] Address [address] [place] [address] Phone Care Team Providers Care Pharmacy Assistant Name Role Phone Provider, No-Primary Care Primary Care Provider Unavailable Reason for Visit * Reason Comments Patient Reported Reason For Visit Patient Reported Reason For Visit 01/13 Pr ep call completed. Instructions mailed. Prescription to be mailed by [facility]. ~tm~ Encounter Details Date Type Department Care Team (Late st Contact Info) Description 01/22/2017 3:00 PM RUBBER CUTTING MACHINE TENDER Office Visit [facility] - Procedure Unit [address] [address] June Coburn MD [address] [place] [address] Social History Tobacco Use Types Packs/Day [...] Sign Reading Time Taken Comments Blood Pressure 107/76 01/22/2017 5:27 PM RUBBER CUTTING MACHINE TENDER Pulse - - Temperature 36.9 ??C (98.4 ??F) 01/22/2017 3:22 PM CS T Respiratory Rate - - Oxygen Saturation 97% 01/22/2017 5:27 PM RUBBER CUTTING MACHINE TENDER Inhaled Oxygen Concentration - - Weight 82.9 kg (182 lb 12.2 oz) 01/22/2017 3:28 PM RUBBER CUTTING MACHINE TENDER Height 180.3 cm (5' 10.98 ) 01/22/2017 3:[address] Body Mass Index 25.5 01/22/2017 3:28 PM RUBBER CUTTING MACHINE TENDER documented in this encounter Patient Instructions * Discharge Instructions* Bria Padilla RN - 01/22/2017 4:54 PM RUBBER CUTTING MACHINE TENDER AFTER YOUR COLONOSCOPY/ ENDOSCOPY Due to the effects of the medication [...] be relieved with walking and passing gas. It is normal to have a sore throat for 2 to 3 days after the endoscopy. A medicine was used to numbthe back of your throat. Do not gargle until your gag reflex returns. Check for your gag reflex by placing your finger toward the back of your tongue. After your gag reflex is back, you may gargle with warm salt water (1/2 teaspoon salt to an 8 ounce glass of water) or use a throat lozenge. Drink plenty of fluids. Diet: Do not eat or drink anything until your gag reflex returns. When your gag reflex comes back, you may first try liquids and then return to your usual diet. If the following occurs: ??? Rectal bleeding that lasts more than 48 hours or increases in amount. ??? Fever greater than 100.4 degrees F (or 38 degrees C). ??? Light headedness or dizziness. ??? Tenderness or sharp, severe abdominal pain that does not go away. ??? Sharp neck pain ??? Vomiting blood ??? Nausea and vomiting lasting longer than 4 hours. Contact: Your local doctor or [facility] at between the hours of 8:00am and 5:00pm OR After 5:00pm or on weekends or holidays, call the Hospital dye machine operator at and ask to have the GI Lard Renderer monitoring coordinator paged. OR 24 hours a day call toll-free . To assist with calls, you may be asked some questionswhen using the toll-free number. Dr. Coburn is your staff doctor. You may get a survey in the next few weeks asking about your visit. Please fill out and return the survey. We will let our staff know when they have been helpful and/or use your feedback to make the care we give better. Instruction Status: Reviewed with patient/caregiver and understanding verbalized. Copy provided. Finalized by: Bria Padilla RN ER CUTTING MACHINE TENDER documented in this encounter H&P Notes * June Coburn MD - 01/22/2017 3:00 PM CST History & Physical/Procedural Sedation Assessment Date: 01/25/2017 Procedure: Colonoscopy, EGD Pre-procedure Diagnosis: history of colon polyps and GERD REVIEW OF SYSTEMS: Pulmonary: negative Cardiac: negative Gastrointestinal: negative Genitourinary: negative Neurological: negative Constitutional: negative Eyes: negative Ears, nose, mouth, throat, and face: negative Integument/breast: negative Hematologic/lymphatic: negative Musculoskeletal: negative Behavioral/Psych: negative Endocrine: negative Allergic/Immunologic: negative NPO Status: Yes. Patient has been NPO per Anesthesia guidelines. HISTORY: Medical History: He has a past medical history of Acid reflux and Chronic pain. He also has no pastmedical history of Essential hypertension, benign. Surgical History: He has past surgical history that includes Tonsillectomy; Vasectomy; joint replacement; shoulder surgery; Revision total hip arthroplasty (Left); and upper endoscopy. Anesthetic History: Denies Allergies: Review of patient's allergies indicates no known allergies. Medications: Medications at start of visit Medication Sig ??? [DISCONTINUED] aspirin 81 mg EC tablet Take 81 mg by mouth daily. ??? cholecalciferol (VITAMIN D3) 2,000 unit capsule Take 2,000 Units by mouth daily. ??? [DISCONTINUED] ergocalciferol (VITAMIN D2) 50,000 unit capsule Take 1 capsule (50,000 Units total) by mouth every week. ??? gabapentin 100 mg capsule Take 1 capsule (100 mg total) by mouth at bedtime. ??? [DISCONTINUED] lansoprazole 30 mg capsule Take 1 capsule (30 mg total) by mouth daily. ??? lidocaine 5 % ointment Apply topically 2 times daily as needed. ??? omeprazole 20 mg enteric coated capsule Take 20 mg by mouth daily. ??? [START ON 02/09/2017] oxyCODONE (OXYCONTIN) 15 mg XR tablet Take 1 tablet (15 mg total) by mouth2 times daily. Earliest Fill Date: 02/09/17 ??? oxyCODONE-acetaminophen 10-325 mg per tablet Take 1 tablet by mouth every 4 hours as needed (itffany filled at [facility] ONLY). ??? [DISCONTINUED] polyethylene glycol-electrolyte (GOLYTELY) suspension Take as directed the evening before your procedure. No facility-administered medications prior to visit. LAB RESULTS: Lab Results Component Value Date/Time PLATELET COUNT 212 01/12/2017 04:44 PM BUN 15 01/12/2017 04:44 PM CREATININE 0.9 01/12/2017 04:44 PM VITALS: Filed Vitals: 01/22/17 1712 01/22/17 1718 01/22/17 1723 01/22/17 1727 BP: 112/76 104/60 108/68 107/76 Temp: TempSrc: Height: Weight: SpO2: 96% 96% 95% 97% PHYSICAL ASSESSMENT: HEENT: Mouth - normal Airway: No abnormalities noted ASA Class: 1. Normal healthy patient Mallampati Class: Grade I (Visualization of the soft palate, fauces, uvula, anterior and posterior pillars) Cardiac: Regular Pulmonary: Clear bilaterally Gastrointestinal: Abdomen soft/non-distended SEDATION PLAN: Procedural sedation June Coburn MD documented in this encounter Procedure Notes * June Coburn MD - 01/22/2017 3:00 PM CSTAssociated Order(s): ENDOSCOPY COLONOSCOPY & ENDOSCOPY UPPER ENDOSCOPY COLONOSCOPY & ENDOSCOPY UPPER Esophagogastroduodenoscopy (EGD) & Colonoscopy Procedure Note Date: 01/22/2017 Referring Physician: Coco Loes Patient: Edilberto Hawley PCP: Provider, No-Primary Care Age: 61 y.o. Sex: male Attending Staff: June Coburn MD : 1955 Fellow: none Procedure: 1. EGD 2. Colonoscopy Indications: 1. EGD: GERD 2. 3. Colonoscopy: Surveillance after previous colon neoplasia Colorectal Neoplasm [...] to proceed with the procedure as described. Prior to proceeding, the patient's name, date of , and procedure to be undertaken was verified with a time out. Procedure Medications: The procedure sedation was given under my direction from 01/22/17 4:18 PM to 01/22/17 4:25 PM 01/22/17 4:50 PM. 1. Midazolam 5mg IV 2. Fentanyl 75mcg IV EGD Procedure Description: The patient was placed in the left lateral decubitus position and the oropharynx was adequately anesthetized with viscous lidocaine and a bite block was secured. Adequate sedation was achieved, allowing us to proceed. An Olympus endoscope was then placed in the oropharynxand advanced under endoscopic visualization and advanced to the third portion of the duodenum. The mucosa was carefully examined. As the endoscope was withdrawn, excess air and fluid were removed. The patient appeared to be in good condition. Per anatomic location, the findings are listed below: ?? Esophagus: the mucosa is somewhat bumpy and blue. Positive for GERD (LA-grade A). ?? Z-line was regular and was located 41 cm from the incisors. ?? Stomach showed mild inflammatory changes in the body broadly. Small hiatus hernia. Insufflation was fine. Retroflexion revealed no abnormalities of the fundus or cardia. ?? The pyloric channel was easily traversed and revealed no abnormalities. ?? Duodenum appeared normal from the bulb to second portion. Colonoscopy Procedure Description: Following the EGD the patient was repositioned slightly and a manual rectal examination was performed. Then the colonoscope was inserted and advanced. The cecum wasidentified by landmarks including the appendix orifice and the ileocecal valve. The colonoscope wasthen slowly withdrawn and the mucosa was carefully examined. Excess air and fluid were removed during colonoscope withdrawal and the procedure terminated. The patient was in good condition and was transferred to the recovery area. Colon preparation: Poor or unprepped; multiple obstructed views (Pt was not compliant to the recommended prep-- ate solid curtis yesterday etc) Ancillary maneuvers: Hand pressure Cecum Photograph: Appendiceal orifice and Ileocecal valve Scope Inserted: 01/22/17 4:33 PM Pathology Specimens: no Cecum Reached: 01/22/17 4:45 PM Complications: None immediately Scope Removed: 01/22/17 4:50 PM The procedure findings are listed below: ?? Poorly prepped. As far as examined no major abnormality was observed. Impression: 1. Bumpy appearance of the esophageal mucosa and broad gastritis-- could be small esophageal varices and portal hypertensive gastropathy. 2. Poorly prepped colon, incomplete screening Plan: 1. Recommend to check US RUQ with liver doppler as well as labs for HCV-Ab and HBsAg to r/o liverdisease and clinical portal hypertension 2. Reschedule colonoscopy at next available (order placed). He needs to complete recommended prep with Stepan. 3. F/U with referring provider. June Coburn MD, PhD Clinical Rn Psychiatric [facility] Division of Gastroenterology & Hepatology Office: CC Provider, No-Primary Care ER CUTTING MACHINE TENDER documented in this encounter Plan of Treatment Not on file documented as of this encounter Procedures Procedure Name Priority Date/Time Associated Diagnosis Comments ABSTRACTED BY BILLING STAFF Routine 01/25/2017 2:24 PM CDT History of colon polyps documented in this encounter Results * ABSTRACTED BY BILLING STAFF (05/11/2017 10:41 AM CDT) Narrative Melanie Sweeney MD - 05/11/2017 10:41 AM CDT Melanie Sweeney MD ? 05/11/2017 10:41 AM ENDOSCOPY COLONOSCOPY Colonoscopy Procedure Note Date: ??05/03/2017 Referring Physician: Coco Leos ?? Patient: Edilberto Hawley PCP: Coco Leos PA-C Age: 61 y.o. Sex: male ??Attending Staff: Melanie Mcguire MD : 1955 ??Fellow: none Operation/Procedure: [...] gallons of PEG electrolyte over 2 days) Melanie Barrera MD Clinical Rn Psychiatric Department of Internal Medicine Division of Gastroenterology and Hepatology [address] [place] [address] Fax [email or web address] Addendum after Pathology Evaluation: 05/11/2017 10:40 AM Pathology: 3-10 tubular adenomas Repeat colonoscopy: Based on these results, I recommend a repeat colonoscopy in 1 year. Results disclosed by: Mail Results for orders placed or performed in visit on 05/03/17 SURGICAL PATHOLOGY EXAM Result Value Ref Range Case Report ?Surgical Pathology ?Case: [id number] ? Authorizing Provider: ??Melanie Sweeney MD ? Collected: ? 05/03/2017 09:38 [...] ORDERABLES Edite d Result - Final * ABSTRACTED BY BILLING STAFF (01/25/2017 2:24 PM CDT) Narrative June Coburn MD - 01/25/2017 2:24 PM CDT June Coburn MD ? 01/25/2017 ??2:24 PM ENDOSCOPY COLONOSCOPY & ENDOSCOPY UPPER Esophagogastroduodenoscopy (EGD) & Colonoscopy Procedure Note Date: ??01/22/2017 Referring Physician: Coco Leos ?? Patient: Edilberto Hawley PCP: Provider, No-Primary Care Age: 61 y.o. Sex: male ??Attending Staff: June Coburn MD : 1955 ??Fellow: none Procedure: ?? 1. EGD 2. Colonoscopy ? Indications: ??1. EGD: GERD 2. 3. Colonoscopy: Surveillance after previous colon neoplasia Colorectal Neoplasm [...] to proceed with the procedure as described. ??Prior to proceeding, the patient's name, date of , and procedure to be undertaken was verified with a time out. Procedure Medications: ??The procedure sedation was given under my direction from 01/22/17 ??4:18 PM to 01/22/17 ??4:25 PM 01/22/17 ??4:50 PM. 1. Midazolam 5mg IV 2. Fentanyl 75mcg IV ? EGD Procedure Description: The patient was placed in the left lateral decubitus position and the oropharynx was adequately anesthetized with viscous lidocaine and a bite block was secured. Adequate sedation was achieved, allowing us to proceed. ??An Olympus endoscope was then placed in the oropharynx and advanced under endoscopic visualization and advanced to the third portion of the duodenum. ??The mucosa was carefully examined. ??As the endoscope was withdrawn, excess air and fluid were removed. ??The patient appeared to be in good condition. ?? Per anatomic location, the findings are listed below: ?? Esophagus: the mucosa is somewhat bumpy and blue. Positive for GERD (LA-grade A). ?? Z-line was regular and was located 41 cm from the incisors. ?? Stomach showed mild inflammatory changes in the body broadly. Small hiatus hernia. ??Insufflation was fine. ??Retroflexion revealed no abnormalities of the fundus or cardia. ? The pyloric channel was easily traversed and revealed no abnormalities. ?? Duodenum appeared normal from the bulb to second portion. ?? Colonoscopy Procedure Description: ??Following the EGD the patient was repositioned slightly and a manual rectal examination was performed. ??Then the colonoscope was inserted and advanced. ??The cecum was identified by landmarks including the appendix orifice and the ileocecal valve. ??The colonoscope was then slowly withdrawn and the mucosa was carefully examined. ??Excess air and fluid were removed during colonoscope withdrawal and the procedure terminated. ??The patient was in good condition and was transferred to the recovery area. Colon preparation: Poor or unprepped; multiple obstructed views (Pt was not compliant to the recommended prep-- ate solid curtis yesterday etc) Ancillary maneuvers: Hand pressure Cecum Photograph: Appendiceal orifice and Ileocecal valve Scope Inserted: 01/22/17 ??4:33 PM ?? Pathology Specimens: ??no Cecum Reached: 01/22/17 ??4:45 PM ?? Complications: ??None immediately Scope Removed: 01/22/17 ??4:50 PM ?? The procedure findings are listed below: ?? Poorly prepped. As far as examined no major abnormality was observed. Impression: 1. Bumpy appearance of the esophageal mucosa and broad gastritis-- could be small esophageal varices and portal hypertensive gastropathy. 2. Poorly prepped colon, incomplete screening Plan: 1. Recommend to check US RUQ with liver doppler as well as labs for HCV-Ab and HBsAg to r/o liver disease and clinical portal hypertension 2. Reschedule colonoscopy at next available (order placed). He needs to complete recommended prep with Stepan. 3. F/U with referring provider. June Coburn MD, PhD Clinical Rn Psychiatric [facility] Division of Gastroenterology & Hepatology Office: CC Provider, No-Primary Care Coco Leos PA-C GI PROCEDURE ORDERABLES Edit ed Result - Final documented in this encounter Visit Diagnoses Diagnosis History of colon polyps- Primary Personal history of colonic polyps Gastroesophageal reflux disease, esophagitis presence not specified Colon cancer screening Special screening for malignant neoplasms, colon History of colon polyps Personal history of colonic polyps documented in this encounter Administered Medications Inactive Administered Medications - up to 3 most recent administrations Medication Order MAR Action Action Date Dose Rate Site fentanyl (pf) (SUBLIMAZE) 50 mcg/mL injection 12.5-50 mcg 12.5-50 mcg, Intravenous, As Needed, Other, Pain. Procedural sedation.?As needed during GI procedures.?May repeat as verbally directed by Physician., Starting on Wed01/22/17 at 1615, For 4 hours, Procedure - Intra-procedural Given 01/22/2017 4:41 PM RUBBER CUTTING MACHINE TENDER 25 mcg Given 01/22/2017 4:18 PM RUBBER CUTTING MACHINE TENDER 50 mcg lidocaine 4% solution 3 mL 3 mL, Topical, As Needed, pain, Other, Procedural Sedation - topical anesthesia. [place] to back of throat before GI procedure., Starting on Wed01/22/17 at 1615, For 4 hours, Procedure - Intra-procedural Given 01/22/2017 4:14 PM RUBBER CUTTING MACHINE TENDER 3 mL midazolam (PF) (VERSED) 1 mg/mL injection 0.5-5 mg 0.5-5 mg, Intravenous, As Needed, Other, Procedural sedation. As needed during GI procedures. May repeat as verbally directed by Physician., Starting on Wed01/22/17 at 1615, For 4 hours, Procedure - Intra-procedural Given 01/22/2017 4:20 PM RUBBER CUTTING MACHINE TENDER 2 mg Given 01/22/2017 4:18 PM RUBBER CUTTING MACHINE TENDER 3 mg sodium chloride 0.9% continuous infusion at 1-999 mL/hr, Intravenous, Continuous, Starting on Wed01/22/17 at 1600 New Bag 01/22/2017 3:33 PM RUBBER CUTTING MACHINE TENDER 200 mL/hr documented in this encounter Additional Health Concerns Assessment Noted Time PHQ-2 Depression Total Score: 0 09/30/20 16 3:26 PM RUBBER CUTTING MACHINE TENDER documented as of this encounter Care Teams Pharmacy Assistant Relationship Specialty Start Date End Date Provider, No-Primary Care [place] PCP - General 01/12/17 02/16/17 documented as of this encounter
--- OUTSIDE RECORDS SUMMARY | 2024-11-23 00:17 | XMS_ITS | Encounter Summary ---
Author Organization [facility] Care Address [address] [place] [address] Phone Care Team Providers Care Hemmer Automatic Name Role Phone Provider, No-Primary Care Primary Care Provider Unavailable Coco Leos PA-C Primary Care Provider [phone] Provider, No-Primary Care Primary Care Provider Unavailable Encounter Details Date Type Department Care Team (Late st Contact Info) Description 01/12/2017 Pharmacy Visit RX [facility] [address] [place] [phone] Social History Tobacco Use Types Packs/Day [...] Total Score: 0 09/30/20 16 3:26 PM AIR REDUCTION EQUIPMENT OPERATOR documented as of this encounter Care Teams Hemmer Automatic Relationship Specialty Start Date End Date Provider, No-Primary Care [place] PCP - General 01/12/17 02/16/17 Coco Leos PA-C [address] [place] [address] PCP - General Physician Diaper Folder 02/17/17 12/15/22 Provider, No-Primary Care [place] PCP - General 12/16/22 documented as of this encounter
--- OUTSIDE RECORDS SUMMARY | 2024-11-23 00:17 | XMS_ITS | Encounter Summary ---
Author Organization [facility] Care Address [address] [place] [address] Phone Care Team Providers Care Duplicator Punch Operator Name Role Phone Cooc Leos PA-C Primary Care Provider [phone] Reason for Visit * Reason Onset Date Comments Medication Refill 03/11/2017 Encounter Details Date Type Department Care Team (Late st Contact Info) Description 03/11/2017 Refill [facility] [address] [address] [place] [id number] Maxine Pope [address] [place] [address] Social History Tobacco Use Types [...] * Telephone Encounter - Dayanna Escamilla - 03/11/2017 2:21 PM CDT Pharmacy is requesting refill of: Oxycodone, Oxycodone/APAP Last visit: 01/12/17 Next visit: 04/05/17 Last written: 02/09/17, 02/11/17 Prescription destination: IR 03/12/17 15:58 Rx placed in pharmacy parts picker folder. [email or web address] MA * Telephone Encounter - Maxine Pope RPh - 03/11/2017 2:05 PM CDT [facility] Pain Medication Refill Service - Pharmacist's Note: Edilberto Hawley is enrolled in the Pain Medication Refill Service and requests renewal of Oxycodone CR 15mg, #60, and Oxycodone/APAP 10/325mg,#120, for OA shoulders, wrists, hands, and back. Level of Analgesia He reports an average pain score after medication of 6/10 in the last week. Functional Activity Improved abilities: walking, working, concentration, mood, relationships, sleep, appetite, general activity and enjoyment of life Adverse Events Denies over-sedation, confusion, falls and constipation. Aberrant Behavior Last fill 02/11. There are no unexpected entries on the EMERGENCY DISPATCHER and refill frequency is every 29-30 days. Opioid agreement signed 01/12/17 with Coco Leos PA-C. Urine Drug Screen: 01/12/17 (+) OC and metabolites as expected. Respiratory Depression Risk Score 3; long acting opioid prescribed, emergency visit within last 6 months and history of opioid abuse (ETC 01/27 & 02/02; remote use cocaine & MAMPH). Of note: [place] does not have a EMERGENCY DISPATCHER. Morphine equivalent dose is 105 mg/day. senior maintenance technician is available. Emergency intranasal naloxoneis warranted at this time. Prescriptions pended for Coco Leos PA-C, last visit: 01/12; return visit: 04/05. Please send orders to [facility] pharmacy for pick-up. Thank you, Maxine Pope, Cristina, [facility], BCACP documented in this encounter Plan of Treatment Not on file documented as of this encounter Visit Diagnoses Diagnosis Low back pain with radiation, right- Primary Other chronic pain documented in this encounter Additional Health Concerns Assessment Noted Time PHQ-2 Depression Total Score: 0 09/30/20 16 3:26 PM DIRECTOR HUMAN SERVICES documented as of this encounter Care Teams Duplicator Punch Operator Relationship Specialty Start Date End Date Coco Leos PA-C [address] [place], [place] [id number] PCP - General Physician Quarantine Officer 02/17/17 12/15/22 documented as of this encounter
--- OUTSIDE RECORDS SUMMARY | 2024-11-23 00:17 | XMS_ITS | Encounter Summary ---
Author Organization [facility] Care Address [address] [place] [address] Phone Care Team Providers Care Blog Writer Name Role Phone Provider, No-Primary Care Primary Care Provider Unavailable Reason for Visit * Reason Comments Patient Reported Reason For Visit PER DY [facility]; [facility] Patient Reported Reason For Visit GFR 85 on 01/12/17 PER [facility]; UI * Radiology Services (Routine) - Closed Specialty Diagnoses / Procedures Referred By Celine t Referred To Contact Radiology Diagnoses Low back pain with radiation, right PER [facility]; UI Procedures MRI SPINE LUMBAR WO CONTRAST ([id number]) RAD MR SPINE W/O Coco Leos PA-C [address] [place] [address] Phone: tel: fax: [facility] - Radiology - MRI [address] [place] [phone] Phone: tel: fax: Referral ID Status Reason Start Date Expiration Date Visits Re quested Visits Authorized [id number] Closed 1 1 Encounter Details Date Type Department Care Team (Late st Contact Info) Description 01/22/2017 11:53 AM FLEXO FOLDER GLUER OPERATOR - 01/22/2017 11:59 PM FLEXO FOLDER GLUER OPERATOR Hospital Encounter [facility] - Radiology - MRI [address] [place] [phone] Jelani Burt [address] [place] [address] Discharge Disposition: Home or Self [...] needed. 35.44 g 11 01/12/2017 5:22 PM FLEXO FOLDER GLUER OPERATOR 01/12/2017 omeprazole 20 mg enteric coated capsule Take 20 mg by mouth daily. cyclobenzaprine 10 mg tablet Take 10 mg by mouth at bedtime. 07/19/2014 7 gabapentin 100 mg capsuleIndicatio ns:Other chronic pain Take 1 capsule (100 mg total) by mouth at bedtime. 30 capsule 11 01/12/2017 5:22 PM FLEXO FOLDER GLUER OPERATOR 01/12/2017 7 oxyCODONE (OXYCONTIN) 15 mg XR tabletIndication s:chronic pain Take 1 tablet (15 mg total) by mouth 2 times daily. Earliest Fill Date: 02/09/17 60 tablet 02/11/2017 4:08 PM CDT 02/09/2017 7 oxyCODONE-acetam inophen 10-325 mg per tabletIndication s:Other chronic pain Take 1 tablet by mouth every 4 hours as needed (to be filled at [facility] ONLY). 120 tablet 01/12/2017 5:22 PM FLEXO FOLDER GLUER OPERATOR 01/12/2017 7 documented as of this encounter Plan of Treatment Not on file documented as of this encounter Procedures Procedure Name Priority Date/Time Associated Diagnosis Comments MRI SPINE LUMBAR WO CONTRAST Routine 01/22/2017 2:00 PM FLEXO FOLDER GLUER OPERATOR Low back pain with radiation, right documented in this encounter Results * MRI SPINE LUMBAR WO CONTRAST ([id number]) (01/22/2017 2:00 PM FLEXO FOLDER GLUER OPERATOR) Anatomical Region Laterality Modality Spine Magnetic Resonan ce Impressions 01/22/2017 5:07 PM FLEXO FOLDER GLUER OPERATOR Impression: 1. Multilevel degenerative changes worst at L5-S1 on the right side as detailed above. 2. Mildly increased signal in the paraspinal muscles of the lumbosacral spine consistent which may represent mild inflammation or muscle sprain. Narrative 01/22/2017 5:07 PM FLEXO FOLDER GLUER OPERATOR Procedure: MRI SPINE LUMBAR WO CONTRAST ([id number]) Indication: Right lower stomach is, back pain Technique: Multisequence, multiplanar MRI of the lumbar spine without IV contrast. Comparison: None Findings: Numbering assumes 5 lumbar type vertebrae. There is mild scoliosis of the lumbar spine. Vertebral body heights are well-maintained. The visualized cord is within normal limits. The conus medullaris terminates at L1-L2. Normal marrow signal throughout. Mildly increased STIR signal in the paraspinal muscles at levels of L4-S1. A level by level analysis is as follows: T12-L1: There is no significant disc disease or stenosis. L1-L2: There is no significant disc disease or stenosis. L2-L3: There is no significant disc disease or stenosis. L3-L4: Mild left neuroforaminal stenosis. L4-L5: Facet hypertrophy and broad-based disc bulge causing mild spinal canal stenosis. L5-S1: Right-sided disc bulge with moderate to severe right neuroforaminal stenosis. Procedure Note Jelani Burt MD - 01/22/2017 Procedure: MRI SPINE LUMBAR WO CONTRAST ([id number]) Indication: Right lower stomach is, back pain Technique: Multisequence, multiplanar MRI of the lumbar spine without IV contrast. Comparison: None Findings: Numbering assumes 5 lumbar type vertebrae. There is mild scoliosis of the lumbar spine. Vertebral body heights are well-maintained. The visualized cord is within normal limits. The conus medullaris terminates at L1-L2. Normal marrow signal throughout. Mildly increased STIR signal in the paraspinal muscles at levels of L4-S1. A level by level analysis is as follows: T12-L1: There is no significant disc disease or stenosis. L1-L2: There is no significant disc disease or stenosis. L2-L3: There is no significant disc disease or stenosis. L3-L4: Mild left neuroforaminal stenosis. L4-L5: Facet hypertrophy and broad-based disc bulge causing mild spinal canal stenosis. L5-S1: Right-sided disc bulge with moderate to severe right neuroforaminal stenosis. IMPRESSION Impression: 1. Multilevel degenerative changes worst at L5-S1 on the right side as detailed above. 2. Mildly increased signal in the paraspinal muscles of the lumbosacral spine consistent which may represent mild inflammation or muscle sprain. us Coco Leos PA-C RAD MR ORDERABLES Final Resu lt documented in this encounter Visit Diagnoses Diagnosis Low back pain with radiation, right documented in this encounter Additional Health Concerns Assessment Noted Time PHQ-2 Depression Total Score: 0 09/30/20 16 3:26 PM FLEXO FOLDER GLUER OPERATOR documented as of this encounter Care Teams Blog Writer Relationship Specialty Start Date End Date Provider, No-Primary Care [place] PCP - General 01/12/17 02/16/17 documented as of this encounter
--- OUTSIDE RECORDS SUMMARY | 2024-11-23 00:17 | XMS_ITS | Encounter Summary ---
Author Organization [facility] Care Address [address] [place] [address] Phone Care Team Providers Care Shrimp Boat Captain Name Role Phone Provider, No-Primary Care Primary Care Provider Unavailable Reason for Visit * Reason Comments Fall Pt fell a week ago a t [employer] while working. Now having left lower back pain and left wrist pain. Encounter Details Date Type Department Care Team (Late st Contact Info) Description 02/02/2017 3:51 AM CDT - 02/02/2017 6:32 AM CDT [facility] [place] [phone] Discharge Disposition: OP Only - Left Without Being Seen Social History Tobacco Use Types Packs/Day Years [...] Reading Time Taken Comments Blood Pressure 118/78 02/02/2017 3:53 AM CDT Pulse 63 02/02/2017 3:53 AM CDT Temperature 36.4 ??C (97.5 ??F) 02/02/2017 3:53 AM CD T Respiratory Rate 20 02/02/2017 3:53 AM CDT Oxygen Saturation 97% 02/02/2017 3:53 AM CDT Inhaled Oxygen Concentration - - Weight - - Height - - Body Mass Index - - documented in this encounter Medications at Time of Discharge cholecalciferol (VITAMIN D3) 2,000 unit capsule Take 2,000 Units by mouth daily. lidocaine 5 % ointmentIndicati ons:Low back pain with radiation, right Apply topically 2 times daily as needed. 35.44 g 11 01/12/2017 5:22 PM CUSTOMER SUCCESS INTERN 01/12/2017 omeprazole 20 mg enteric coated capsule Take 20 mg by mouth daily. cyclobenzaprine 10 mg tablet Take 10 mg by mouth at bedtime. 07/19/2014 7 gabapentin 100 mg capsuleIndicatio ns:Other chronic pain Take 1 capsule (100 mg total) by mouth at bedtime. 30 capsule 11 01/12/2017 5:22 PM CUSTOMER SUCCESS INTERN 01/12/2017 7 oxyCODONE (OXYCONTIN) 15 mg XR tabletIndication s:chronic pain Take 1 tablet (15 mg total) by mouth 2 times daily. Earliest Fill Date: 02/09/17 60 tablet 02/11/2017 4:08 PM CDT 02/09/2017 7 oxyCODONE-acetam inophen 10-325 mg per tabletIndication s:Other chronic pain Take 1 tablet by mouth every 4 hours as needed (to be filled at [facility] ONLY). 120 tablet 01/12/2017 5:22 PM CUSTOMER SUCCESS INTERN 01/12/2017 7 documented as of this encounter [...] use: As long as needed Video/Handout: [email or web address] Pain Management - Exercise Pain Management No Coco Leos PA-C Note: Exercise: General Aerobic ?? Duration: 3 to 5 days per week for 20 minutes per day ?? Intensity: Moderate Strengthening: neither Back nor General (for widespread pain) nor Shoulder ?? Intensity: Moderate ?? Duration: 2 to 4 days per week ?? Instructions: See attached documentation for details Video/Handout: [email or web address] documented as of this encounter Visit Diagnoses Diagnosis Lumbago- Primary documented in this encounter Additional Health Concerns Assessment Noted Time PHQ-2 Depression Total Score: 0 09/30/20 16 3:26 PM CUSTOMER SUCCESS INTERN documented as of this encounter Care Teams Shrimp Boat Captain Relationship Specialty Start Date End Date Provider, No-Primary Care [place] PCP - General 01/12/17 02/16/17 documented as of this encounter
--- OUTSIDE RECORDS SUMMARY | 2024-11-23 00:17 | XMS_ITS | Encounter Summary ---
Author Organization [facility] Care Address [address] [place] [address] Phone Care Team Providers Care Financial Controller Name Role Phone Coco Leos PA-C Primary Care Provider [phone] Reason for Visit * Reason Comments Patient Reported Reason For Visit Encounter Details Date Type Department Care Team (Late st Contact Info) Description 04/09/2017 5:10 PM CDT Lab Only [facility] - Draw Station [address] [place] [phone] Coco Leos PA-C [address] [place], [place] [phone] Lab Services, [place] Social History Tobacco Use [...] documented as of this encounter Care Teams Financial Controller Relationship Specialty Start Date End Date Coco Leos PA-C [address] [place], [place] [phone] PCP - General Physician Roofing Technician 02/17/17 12/15/22 documented as of this encounter
--- OUTSIDE RECORDS SUMMARY | 2024-11-23 00:17 | XMS_ITS | Encounter Summary ---
Author Organization [facility] Care Address [address] [place] [address] Phone Care Team Providers Care City Manager Name Role Phone Provider, No-Primary Care Primary Care Provider Unavailable Reason for Visit * Reason Onset Date Comments Med Request 01/13/2017 Encounter Details Date Type Department Care Team (Late st Contact Info) Description [facility] [address] [phone] Talia Jasso, RN [address] [place], [place] [phone] Social History Tobacco Use Types Packs/Day Years [...] as of this encounter Visit Diagnoses Diagnosis Screen for colon cancer- Primary Special screening for malignant neoplasms, colon documented in this encounter Additional Health Concerns Assessment Noted Time PHQ-2 Depression Total Score: 0 09/30/20 16 3:26 PM HUMAN RESOURCES MGR documented as of this encounter Care Teams City Manager Relationship Specialty Start Date End Date Provider, No-Primary Care [place] PCP - General 01/12/17 02/16/17 documented as of this encounter
--- OUTSIDE RECORDS SUMMARY | 2024-11-23 00:17 | XMS_ITS | Encounter Summary ---
Author Organization [facility] Care Address [address] [place] [address] Phone Care Team Providers Care Auto Claim Representative Name Role Phone Provider, No-Primary Care Primary Care Provider Unavailable Coco Leos PA-C Primary Care Provider [phone] Provider, No-Primary Care Primary Care Provider Unavailable Encounter Details Date Type Department Care Team (Late st Contact Info) Description 02/10/2017 Pharmacy Visit [facility] [address] [place] [phone] Social History Tobacco Use Types Packs/Day [...] Total Score: 0 09/30/20 16 3:26 PM CURER ACID DRUM documented as of this encounter Care Teams Auto Claim Representative Relationship Specialty Start Date End Date Provider, No-Primary Care [place] PCP - General 01/12/17 02/16/17 Coco Leos PA-C [address] [place], [place] [phone] PCP - General Physician Financial Risk Manager 02/17/17 12/15/22 Provider, No-Primary Care [place] PCP - General 12/16/22 documented as of this encounter
--- OUTSIDE RECORDS SUMMARY | 2024-11-23 00:17 | XMS_ITS | Encounter Summary ---
Author Organization [facility] Care Address [address] [place] [address] Phone Care Team Providers Care Assembler Ping Pong Table Name Role Phone Stephanie Giron PA-C Primary Care Provider [phone] Reason for Visit * Reason Comments Fall Pain LEFT Hip Pain LEFT Encounter Details Date Type Department Care Team (Late st Contact Info) Description 04/09/2017 3:00 PM CDT Office Visit [facility] [address] [facility] [address] [place] [phone] [address] [place], [place] [phone] Stephanie Giron PA-C [address] [place], [place] [id number] Social History Tobacco Use Types Packs/Day Years [...] Sign Reading Time Taken Comments Blood Pressure 111/66 04/09/2017 2:56 PM CDT Pulse 66 04/09/2017 2:56 PM CDT Temperature 36.9 ??C (98.4 ??F) 04/09/2017 2:56 PM CD T Respiratory Rate - - Oxygen Saturation - - Inhaled Oxygen Concentration - - Weight 81.6 kg (179 lb 14.3 oz) 04/09/2017 2:56 PM CDT Height - - Body Mass Index 25.1 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 Gabapentin 300 mg was too sedating, will change to 100 mg QHS as he did feel it helped with burningof his back. Trial of topical lidocaine ointment has been helpful, will continue. Will continue narcotic therapy as currently ordered. Pt to follow up with pain clinic Follow up here in 3 months XR of wrist, back, hip today. Will notify when results available. Patient verbalizes understanding with this plan. I have requested a followup appointment in 3 months. documented in this encounter Progress Notes * Stephanie Giron PA-C - 04/09/2017 3:00 PM CDT Clinic Note Encounter Date: 04/09/2017 Subjective: Chief Complaint: Chief Complaint Patient presents with ??? Fall ??? Pain LEFT ??? Hip Pain LEFT History of Present Illness:Edilberto Durand is a 61 y.o. ESTABLISED pt, whom I met for the first time in September, presents to the Department of Family Medicine [facility] for pain management He has been followed by providers in [facility] as he is from that area. He and his have beenliving in an in [facility] since February 2016 as he is working as a member of the [employer]. He is now working in [place] . He is doing a lot of activity at work, according to his phone he is walking 38 K steps/day. He is currently working for [employer], now in [place] doing a lot of lifting, up and down ladders. He does a lot of lifting and pulling. He reports that his mental health is improved with returning to work. He feels he gets around better as he has lost weight with return to work as well. However he had a fall in [employer] about a month ago and He has been getting headaches more frequently. He has PMH of chronic pain, back, shoulders, hands, wrists. He has had numerous surgeries in the past. He is on chronic narcotic regimen, has been on current regimen for a few years. Started on this by previous PCP in [place]. He is now receiving medications through us and utilizing the [facility]. He reports that he is on bid oxycontin 15 mg with prn oxycodone for breakthrough pain. He was on disability for a long time, but went back to work in February 2016. He brings in his medications: Gabapentin 300 mg - He states 300 mg dose was too high and it made him too tired and dizzy and thenhe can't work. This was decreased to 100 mg and he is taking this dose. Amitriptyline now on 75 mg; He was taking amitriptyline 100 mg and the high dose leaves him feelingtoo groggy so this has been reduced to 75 mg. Topical Lidocaine - has started using this and it is helpful. cyclobenzaprine 5 mg, not taking except on weekends as it is sedating. naproxen - not taking as it has been bothering his stomach. Atorvastatin - not taking. His chronic pain is located in L shoulder ; shoulders get worse at night. He has L shoulder weakness. He has history of injury RC repair then bad fall with re injury, not surgical. He reports paresthesia of B arms. and Left belt line - burning sensation R hand, R wrist. Morning stiffness, uses topical analgesic - biofreeze. He has not had back surgeries. He has had epidural injections in back which were very helpful. He does get radicular pain in RLE. He had L hip replacement Fall 2014. Had 6 month check up in April 2016. Pain here has been minimal since surgery until recently. Pt had a fall at [employer] about a month ago. Fell onto left wrist and left hip. Since then he has had increase in pain in Left wrist and Left low back/hip. He reports that he has pain in the left hip. Pain is aggravated by standing and walking. He does walk a lot at work and has not missed work r/tthis. However, he reports that his pain is getting worse sooner than normal. HISTORY OF COLON POLYPS - Had attempted colonoscopy, but inadequate prep; this has been rescheduled. He drinks a lot of coca-cola, he used to drink 2-3L/da, now drinking 32-48 oz/day. 1. Recommend to check US RUQ with liver doppler as well as labs for HCV-Ab and HBsAg to r/o liverdisease and clinical portal hypertension He had MRI of L spine done in January with multiple abnormalities. He is scheduled to see the pain clinic. Active Problem List with Overview Notes Diagnosis Date Noted ??? Health care maintenance 10/01/2016 Lipid - [...] of 3 - Primary Series) 1953 ??? Tdap Vaccine 1964 ??? Td Vaccine 1971 ??? Prostate Cancer Screening 2003 ??? Zoster Vaccine 2013 ??? Lipid Disorder Screening 01/12/2022 ??? Colonoscopy 01/25/2027 ??? Influenza Vaccine: Seasonal Addressed ??? HCV Screening Completed Past Surgical History Procedure Laterality Date ??? Tonsillectomy ??? Vasectomy ??? Joint replacement ??? Shoulder surgery ??? Revision total hip arthroplasty Left ??? Upper endoscopy Family History Problem Relation Age of Onset [...] as needed forPain. To last until 05/12/17 120 tablet 0 ??? polyethylene glycol-electrolyte (NULYTELY) suspension Take 4,000 mL by mouth once. Take [...] Not on file Social History Narrative Mr. 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 Review of Systems All systems were reviewed and are negative except for: Constitutional: Night Sweats, Weight loss Ears: Ringing in the ears, Dizziness Nose/throat/mouth: Sinus problems - feels caused by chemical he has to work with and dust. Cardiovascular: Pain in legs, Poor circulation in legs GI: Heart burn Musculoskeletal: Joint pain, Joint stiffness, Muscle pain, Muscle weakness, Arm Pain, Arm Weakness,Leg Pain Objective: BP 111/66 mmHg Pulse 66 Temp(Src) 36.9 ??C (98.4 ??F) (Tympanic) Wt 81.6 kg (179 lb 14.3 oz) Awake, alert, in no acute distress. Full affect, appropriate mood. VSS PERRLa EOMI B TM WNL Oropharynx WNL Neck supple HRRR no CMR Lungs CTAB MSK exam: Left thumb, metacarpal deformity and very tender to palpation over scaphoid. Pain in low back with resisted hip flexion Sacrum tender to palpation Left hip flexor weak; L spine tender to palpation. L paraspinal muscle less prominent than right Limited flexion at waist (45 degrees) Neg seated SLR, R causes pain in low back Right leg with weak hip extension/flexion DTR +2 + SLR on Rleg at 30 degrees + SLR on left at 45 degrees Normal EHL strength. The following are the results of tests done from the visit on 04/09/17 HEPATITIS C ANTIBODY Value Value Units Hepatitis C Virus Antibody Negative Negative HEPATITIS B SURFACE ANTIGEN Value Value Units Hep B Surface Antigen Negative Negative GLUCOSE Value Value Units Glucose 101 (H) 65-99 mg/dL URINALYSIS WITH REFLEXED CULTURE AND MICROSCOPIC EXAM Narrative The following orders were created for panel order URINALYSIS WITH REFLEXED CULTURE AND MICROSCOPIC EXAM. Procedure Abnormality Status --------- ------ URINALYSIS WITH REFLEX C...[[id number]] Normal Final result MICROSCOPIC URINALYSIS[[id number]] Normal Final result URINE CULTURE, REFLEXED[[id number]] Please view results for these tests on the individual orders. URINALYSIS WITH REFLEX CULTURE Value Value Units Color, Urine Yellow Straw, Pale Yellow, Yellow, Clear, None Clarity, Urine Clear Clear pH, Urine 5.0 <9.0 Spec [place], Urine 1.025 >1.000-<1.030 Glucose, Urine Negative Negative Blood, Urine Negative Negative Ketones, Urine Negative Negative Protein, Urine Negative Negative Urobilinogen, Urine Normal Normal Bilirubin, Urine Negative Negative Leukocyte Esterase, Urine Negative Negative Nitrite, Urine Negative Negative MICROSCOPIC URINALYSIS Value Value Units WBCs-Urine Negative 0-5 /HPF RBCs-Urine Negative 0-2 /HPF Squamous Epi Cells-Urine 1-10 <=10 /LPF Assessment/Plan: ICD-10-CM ICD-9-CM 1. Other chronic pain G89.29 338.29 oxyCODONE (OXYCONTIN) 15 mg XR tablet oxyCODONE-acetaminophen 10-325 mg per tablet 2. History of left hip replacement Z96.642 V43.64 HIP AP & LAUENSTEIN LEFT 3. History of repair of left rotator cuff Z98.890 V15.29 4. Fall, sequela W19.XXXS 909.4 HIP AP & [place]IN LEFT E929.3 LEFT WRIST PA, LAT, OBLIQUE & SCAPHOID L SPINE AP & LATERAL 5. Left wrist pain M25.532 719.43 LEFT WRIST PA, LAT, OBLIQUE & SCAPHOID 6. Esophageal varices without bleeding, unspecified esophageal varices type I85.00 456.1 US RUQ ANDLIVER DOPPLER ([id number]) HEPATITIS C ANTIBODY HEPATITIS B SURFACE ANTIGEN 7. Polyuria R35.8 788.42 GLUCOSE URINALYSIS WITH REFLEXED CULTURE AND MICROSCOPIC EXAM URINALYSIS WITH REFLEX CULTURE MICROSCOPIC URINALYSIS URINE CULTURE, REFLEXED 8. Low back pain with radiation, right M54.41 724.2 oxyCODONE (OXYCONTIN) 15 mg XR tablet 9. Other chronic pain G89.29 338.29 oxyCODONE (OXYCONTIN) 15 mg XR tablet oxyCODONE-acetaminophen 10-325 mg per tablet continue current medication, MRI of L spine Pleasant 61 y/o male with PMH of chronic pain, OA s/p LTHA, lumbar radiculopathy, multiple shouldersurgeries, here for follow up chronic pain management. In interval since last visit he fell at [employer] and now has pain in L wrist with swelling and abnormal exam as well as L hip pain. He has continued to work through this pain a physically demanding job. I have ordered X-rays of wrist, back, hip, will notify pt of results. Review of non-narcotic therapies. Pt to continue amitriptyline 75 mg QHS Advised continued QHS cyclobenzaprine and prn on weekends, not to take when working as it sedates him. Continue Gabapentin 100 mg QHS as he did feel it helped with burning of his back. Trial of topical lidocaine ointment has been helpful, will continue. Will continue narcotic therapy as currently ordered. Pt to follow up with pain clinic Follow up here in 3 months Patient verbalizes understanding with this plan. I have requested a followup appointment in 3 months. Please note that I spent over 45 minutes face to face with the patient and > 50% of that was counseling and coordinating of care as noted above. Stephanie Giron PA-C documented in this encounter Plan of Treatment Not on file documented as of this encounter Procedures Procedure Name Priority Date/Time Associated Diagnosis Comments URINALYSIS WITH REFLEXED CULTURE ORDER Routine 04/09/2017 5:05 PM CDT Polyuria MICROSCOPIC URINALYSIS Routine 04/09/2017 5:05 PM CDT Polyuria URINALYSIS WITH REFLEX CULTURE Routine 04/09/2017 5:05 PM CDT Polyuria HEPATITIS C ANTIBODY Routine 04/09/2017 5:05 PM CDT Esophageal varices without bleeding, unspecified esophageal varices type (HCC) HEPATITIS B SURFACE ANTIGEN Routine 04/09/2017 5:05 PM CDT Esophageal varices without bleeding, unspecified esophageal varices type (HCC) GLUCOSE Routine 04/09/2017 5:05 PM CDT Polyuria documented in this encounter Results * US RUQ AND LIVER DOPPLER ([id number]) (04/23/2017 8:30 AM CDT) Anatomical Region Laterality Modality Ultrasound 04/23/2017 8:13 AM CDT Impressions 04/23/2017 12:21 PM CDT Impression: 1. Fibrofatty infiltration of the liver. 2. No evidence of portal hypertension. --- Final --- Narrative 04/23/2017 12:21 PM CDT [facility] ?? [facility] Department of Radiology ?? Ultrasound Division ? [address] ?? [place] [address] ULTRASOUND REPORT NAME: ?EDILBERTO DURAND Date of Service: 04/23/2017 MRN NO.: ? [id number] ? Review Date: ? 04/23/2017 Patient's : 1955 ? Resident/Tech: ?? [id number] Chris Viktoria Matty Patient's Age: 61 years ? Referring MD: ?STEPHANIE GIRON Indication: Esophageal varices without bleeding, unspecified esophageal varices type [I85.00] (ordered RUQ US and hepatitis labs as recommended. Labs neg for hepatitis B,C. ) On endoscopy concern for portal HTN. Technique: Right upper quadrant grayscale ultrasound with spectral and color Doppler. Findings: Liver: Scattered granulomas throughout. +---------+ + +-------+ + :Size (cm):Echogenicity:Echotexture:Shape ??:Vascularity: +---------+ + +-------+ + :15.9 ? :Increased. ??:Normal. ?:Normal.:Normal. ?: +---------+ + +-------+ + Liver Doppler: + +-------+ +---------+ -+ : ? :Patency:Waveform ? :Velocity :MPV Diameter: + +-------+ +---------+ -+ :Main Portal Vein :Patent :Normal biphasic antegrade ?:13.8 cm/s:12.1 mm ? : + +-------+ +---------+ -+ :Right Portal Vein:Patent :Normal phasic ?:Antegrade: ? : + +-------+ +---------+ -+ :Left Portal Vein :Patent :Normal phasic ?:Antegrade: ? : + +-------+ +---------+ -+ :Splenic Vein ? :Patent :Normal biphasic ?:Antegrade: ? : + +-------+ +---------+ -+ :Hepatic Veins ?:Patent :Normal triphasic and with ?:Antegrade: ? : : ? : ? :spectral broadening ?: ? : ? : + +-------+ +---------+ -+ :IVC ?:Patent :Normal triphasic ? :Antegrade: ? : + +-------+ +---------+ -+ + +--------+ + : ?:Waveform:RI (0.55 - 0.70): + +--------+ + :Hepatic artery:Normal ??:0.71 ?: + +--------+ + Spleen: Spleen measures 11.4 x 11.6 x 3.9 cm. Ascites: No ascites. Procedure Note Yassine Gale MD - 04/23/2017 [facility] Department of Radiology Ultrasound Division [address] [place] [address] ULTRASOUND REPORT NAME: EDILBERTO DURAND Date of Service: 04/23/2017 MRN NO.: [id number] Review Date: 04/23/2017 Patient's : 1955 Resident/Tech: [id number] Chris Starr Patient's Age: 61 years Referring MD: STEPHANIE GIRON Indication: Esophageal varices without bleeding, unspecified esophageal varices type [I85.00] (ordered RUQ US and hepatitis labs as recommended. Labs neg for hepatitis B,C. ) On endoscopy concern for portal HTN. Technique: Right upper quadrant grayscale ultrasound with spectral andcolor Doppler. Findings: Liver: Scattered granulomas throughout. +---------+ + +-------+ + :Size (cm):Echogenicity:Echotexture:Shape :Vascularity: +---------+ + +-------+ + :15.9 :Increased. :Normal. :Normal.:Normal. : +---------+ + +-------+ + Liver Doppler: + +-------+ +---------+ -+ : :Patency:Waveform :Velocity :MPV Diameter: + +-------+ +---------+ -+ :Main Portal Vein :Patent :Normal biphasic antegrade :13.8 cm/s:12.1 mm : + +-------+ +---------+ -+ :Right Portal Vein:Patent :Normal phasic :Antegrade: : + +-------+ +---------+ -+ :Left Portal Vein :Patent :Normal phasic :Antegrade: : + +-------+ +---------+ -+ :Splenic Vein :Patent :Normal biphasic :Antegrade: : + +-------+ +---------+ -+ :Hepatic Veins :Patent :Normal triphasic and with :Antegrade: : : : :spectral broadening : : : + +-------+ +---------+ -+ :IVC :Patent :Normal triphasic :Antegrade: : + +-------+ +---------+ -+ + +--------+ + : :Waveform:RI (0.55 - 0.70): + +--------+ + :Hepatic artery:Normal :0.71 : + +--------+ + Spleen: Spleen measures 11.4 x 11.6 x 3.9 cm. Ascites: No ascites. IMPRESSION Impression: 1. Fibrofatty infiltration of the liver. 2. No evidence of portal hypertension. --- Final --- us Stephanie Giron PA-C RAD US ORDERABLES Final Resu lt * LEFT WRIST PA, LAT, OBLIQUE & [...] There is carpal bossing, a normal variant. Stephanie Giron PA-C RAD GEN ORDERABLES Final Res ult * (ABNORMAL) L SPINE AP & LATERAL [...] mild retrolisthesis of L2 on L3. us Stephanie Giron PA-C RAD GEN ORDERABLES Final Res ult * MICROSCOPIC URINALYSIS (04/09/2017 5:05 PM CDT) WBC - Urine Negative 0 - 5 /HPF 04/09/2017 5:26 PM CDT [facility] RBC - Urine Negative 0 - 2 /HPF 04/09/2017 5:26 PM CDT [facility] Squamous Epithelial Cells - Urine 1-10 <=10 /LPF 04/09/2017 5:26 PM CDT [facility] Urine specimen (specimen) 04/09/2017 5:05 PM CDT 04/09/2017 5:12 PM CDT us Stephanie RICHEYC RANDOM URINE Final Result [facility] [address] [address] * URINALYSIS WITH REFLEX CULTURE (04/09/2017 5:05 PM CDT) Color - Urine Yellow Straw, Pale Yellow, Yellow, Clear, None 04/09/2017 5:22 PM CDT [facility] Clarity - Urine Clear Clear 04/09/2017 5:22 PM CDT [facility] pH - Urine 5.0 <9.0 04/09/2017 5:22 PM CDT [facility] Specific [place] - Urine 1.025 >1.000-<1.03 0 04/09/2017 5:22 PM CDT [facility] Glucose - Urine Negative Negative 04/09/2017 5:22 PM CDT [facility] Blood - Urine Negative Negative 04/09/2017 5:22 PM CDT [facility] Ketones - Urine Negative Negative 04/09/2017 5:22 PM CDT [facility] Protein - Urine Negative Negative 04/09/2017 5:22 PM CDT [facility] Urobilinogen - Urine Normal Normal 04/09/2017 5:22 PM CDT [facility] Bilirubin - Urine Negative Negative 04/09/2017 5:22 PM CDT [facility] Leukocyte Esterase - Urine Negative Negative 04/09/2017 5:22 PM CDT [facility] Nitrite - Urine Negative Negative 04/09/2017 5:22 PM CDT [facility] Urine specimen (specimen) 04/09/2017 5:05 PM CDT 04/09/2017 5:12 PM CDT us Stephanie Giron PA-C RANDOM URINE Final Result Performing Organization Address [facility]/ZIP Co de Phone Number [facility] [address] [address] * (ABNORMAL) GLUCOSE (04/09/2017 5:05 PM CDT) Glucose 101(H) 65 - 99 mg/dL 04/09/2017 5:31 PM CDT [facility] Comment: The Expert Committee on the Diagnosis and Classification of Diabetes has defined impaired fasting glucose as greater than or equal to 100 mg/dL but less than 126 mg/dL. ??(Diabetes Care 28 (Suppl 1) S41,2005) Blood specimen (specimen) Venipuncture / Unknown 04/09/2017 5:05 PM CDT 04/09/2017 5:18 PM CDT us Stephanie Giron PA-C CHEMISTRY ORDERABLES Final R esult [facility] [address] [address] * HEPATITIS B SURFACE ANTIGEN (04/09/2017 5:05 PM CDT) Hepatitis B Surface Antigen Negative Negative 04/09/2017 9:42 PM CDT [facility] Blood specimen (specimen) Venipuncture / Unknown 04/09/2017 5:05 PM CDT 04/09/2017 5:17 PM CDT us Stephanie Giron PA-C CHEMISTRY ORDERABLES Final R esult Performing Organization Address City/[facility]/ZIP Co de Phone Number [facility] [address] [place] [address] * HEPATITIS C ANTIBODY (04/09/2017 5:05 PM CDT) Hepatitis C Antibody Negative Negative 04/09/2017 9:42 PM CDT [facility] Blood specimen (specimen) Venipuncture / Unknown 04/09/2017 5:05 PM CDT 04/09/2017 5:17 PM CDT Stephanie Giron PA-C CHEMISTRY ORDERABLES Final R esult Performing Organization Address City/[facility] Co de Phone Number [facility] [address] [place] [address] documented in this encounter Visit Diagnoses Diagnosis Other chronic pain- Primary History of left hip replacement History of repair of left rotator cuff Personal history of surgery to other organs Fall, sequela Left wrist pain Pain in joint, forearm Esophageal varices without bleeding, unspecified esophageal varices type (HCC) Polyuria Low back pain with radiation, right Fall, sequela Left wrist pain Pain in joint, forearm Fall, sequela Esophageal varices without bleeding, unspecified esophageal varices type (HCC) documented in this encounter Additional Health Concerns Assessment Noted Time PHQ-2 Depression Total Score: 0 04/09/20 17 2:55 PM CDT documented as of this encounter Care Teams Assembler Ping Pong Table Relationship Specialty Start Date End Date Stephanie Giron PA-C [address] [place] [address] PCP - General Physician [employer]one Treater 02/17/17 12/15/22 documented as of this encounter
--- OUTSIDE RECORDS SUMMARY | 2024-11-23 00:17 | XMS_ITS | Encounter Summary ---
Author Organization [facility] Care Address [address] [place] [address] Phone Care Team Providers Care Title Examiner Name Role Phone Provider, No-Primary Care Primary Care Provider Unavailable Reason for Visit * Reason Comments [facility] Chronic back pain- worsened since fall. Pain unrelieved with Percocet 10/325, Oxycontin 10mg. Encounter Details Date Type Department Care Team (Late st Contact Info) Description 01/27/2017 5:55 PM CDT - 01/27/2017 7:50 PM CDT [facility] [place] [phone] Discharge Disposition: Home or Self Care Social [...] Sign Reading Time Taken Comments Blood Pressure 124/91 01/27/2017 6:18 PM CDT Pulse 79 01/27/2017 6:18 PM CDT Temperature 36.1 ??C (97 ??F) 01/27/2017 6:18 PM CDT Respiratory Rate 20 01/27/2017 6:18 PM CDT Oxygen Saturation 97% 01/27/2017 6:18 PM CDT Inhaled Oxygen Concentration - - Weight - - Height - - Body Mass Index - - documented in this encounter Medications at Time of Discharge cholecalciferol (VITAMIN D3) 2,000 unit capsule Take 2,000 Units by mouth daily. lidocaine 5 % ointmentIndicati ons:Low back pain with radiation, right Apply topically 2 times daily as needed. 35.44 g 11 01/12/2017 5:22 PM WELCOME DESK AGENT 01/12/2017 omeprazole 20 mg enteric coated capsule Take 20 mg by mouth daily. cyclobenzaprine 10 mg tablet Take 10 mg by mouth at bedtime. 07/19/2014 7 gabapentin 100 mg capsuleIndicatio ns:Other chronic pain Take 1 capsule (100 mg total) by mouth at bedtime. 30 capsule 11 01/12/2017 5:22 PM WELCOME DESK AGENT 01/12/2017 7 oxyCODONE (OXYCONTIN) 15 mg XR tabletIndication s:chronic pain Take 1 tablet (15 mg total) by mouth 2 times daily. Earliest Fill Date: 02/09/17 60 tablet 02/11/2017 4:08 PM CDT 02/09/2017 7 oxyCODONE-acetam inophen 10-325 mg per tabletIndication s:Other chronic pain Take 1 tablet by mouth every 4 hours as needed (to be filled at [facility]). 120 tablet 01/12/2017 5:22 PM WELCOME DESK AGENT 01/12/2017 7 documented as of this encounter [...] of use: As long as needed Video/Handout: [email or web address] Pain Management - Exercise Pain Management No Coco Leos PA-C Note: Exercise: General Aerobic ?? Duration: 3 to 5 days per week for 20 minutes per day ?? Intensity: Moderate Strengthening: neither Back nor General (for widespread pain) nor Shoulder ?? Intensity: Moderate ?? Duration: 2 to 4 days per week ?? Instructions: See attached documentation for details Video/Handout: [email or web address] documented as of this encounter Visit Diagnoses Diagnosis Dorsalgia, unspecified- Primary documented in this encounter Additional Health Concerns Assessment Noted Time PHQ-2 Depression Total Score: 0 09/30/20 16 3:26 PM WELCOME DESK AGENT documented as of this encounter Care Teams Title Examiner Relationship Specialty Start Date End Date Provider, No-Primary Care [place] PCP - General 01/12/17 02/16/17 documented as of this encounter
--- OUTSIDE RECORDS SUMMARY | 2024-11-23 00:17 | XMS_ITS | Encounter Summary ---
Author Organization [facility] Care Address [address] [place] [address] Phone Care Team Providers Care Fire Equipment Operator Name Role Phone Provider, No-Primary Care Primary Care Provider Unavailable Reason for Visit * Reason Comments Post-op Follow-up Call Encounter Details Date Type Department Care Team (Late st Contact Info) Description 01/25/2017 Nurse Triage [place] - I[facility] - Procedure Unit [address] [place] [phone] Saige Rivas [address] [place] [address] Social History Tobacco Use Types Packs/Day Years [...] Total Score: 0 09/30/20 16 3:26 PM FILM TESTS CHECKER documented as of this encounter Care Teams Fire Equipment Operator Relationship Specialty Start Date End Date Provider, No-Primary Care [place] PCP - General 01/12/17 02/16/17 documented as of this encounter
--- OUTSIDE RECORDS SUMMARY | 2024-11-23 00:17 | XMS_ITS | Encounter Summary ---
Author Organization [facility] Care Address [address] [place] [address] Phone Care Team Providers Care Staff Physical Therapy Assistant Name Role Phone Provider, No-Primary Care Primary Care Provider Unavailable Reason for Visit * Reason Onset Date Comments Medication Refill 02/09/2017 Encounter Details Date Type Department Care Team (Late st Contact Info) Description 02/09/2017 Refill [facility] [address] [address] [place] [phone] Maxine Pope [address] [place], [place] [phone] Social History Tobacco Use Types Packs/Day Years [...] encounter Miscellaneous Notes * Telephone Encounter - Lucretia Barker - 02/10/2017 8:07 AM CDT 02/10/2017, 8:07 AM Requesting a refill of: oxycodone-acetaminophen & Naloxone Last Visit: 01/12/17 Future Appointments: None Preferred Pharmacy: [facility] Fax #: [phone] [facility] * Telephone Encounter - Maxine Pope RP - 02/09/2017 7:00 PM CDT [facility] Pain Medication Refill Service - Pharmacist's Note: Edilberto Hawley is enrolled in the Pain Medication Refill Service and requests renewal of Oxycodone/APAP 10/325mg, #120, for back pain. Level of Analgesia He reports an average pain score after medication of 5-6/10 in the last week. Functional Activity Improved abilities: working Adverse Events Denies over-sedation, confusion, falls and constipation. Aberrant Behavior Last fill 01/12. There are no unexpected entries on the CONTOUR STITCHER and refill frequency is TBD. 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 Opioid agreement signed 01/12/17 with Coco Leos. Urine Drug Screen: 01/12/17 (+)OC & metabolites, as expected. Respiratory Depression Risk Score 1; long acting opioid prescribed Morphine equivalent dose is 105 mg/day. ton cylinder inspector is available. Emergency intranasal naloxoneis warranted at this time. Prescriptions pended for Coco Leos, last visit: 01/12; return visit: not scheduled. Please send orders to [facility] pharmacy for pick-up. Thank you, Cristina George, [facility], BCACP documented in this encounter Plan of Treatment Not on file documented as of this encounter Visit Diagnoses Diagnosis Other chronic pain- Primary documented in this encounter Additional Health Concerns Assessment Noted Time PHQ-2 Depression Total Score: 0 09/30/20 16 3:26 PM INSURANCE FOLLOW UP REP documented as of this encounter Care Teams Staff Physical Therapy Assistant Relationship Specialty Start Date End Date Provider, No-Primary Care [place] PCP - General 01/12/17 02/16/17 documented as of this encounter
--- OUTSIDE RECORDS SUMMARY | 2024-11-23 00:17 | XMS_ITS | Encounter Summary ---
Author Organization [facility] Care Address [address] [place] [address] Phone Care Team Providers Care System Configuration Specialist Name Role Phone Provider, No-Primary Care Primary Care Provider Unavailable Coco Leos PA-C Primary Care Provider [phone] Provider, No-Primary Care Primary Care Provider Unavailable Encounter Details Date Type Department Care Team (Late st Contact Info) Description 01/13/2017 Pharmacy Visit [facility] [address] [place] [phone] Social History Tobacco Use Types Packs/Day [...] Total Score: 0 09/30/20 16 3:26 PM BRIM STRETCHER documented as of this encounter Care Teams System Configuration Specialist Relationship Specialty Start Date End Date Provider, No-Primary Care [place] PCP - General 01/12/17 02/16/17 Coco Leos PA-C [address] [place] [address] PCP - General Physician Account Support Manager 02/17/17 12/15/22 Provider, No-Primary Care [place] PCP - General 12/16/22 documented as of this encounter
--- OUTSIDE RECORDS SUMMARY | 2024-11-23 00:17 | XMS_ITS | Encounter Summary ---
Author Organization [facility] Care Address [address] [place] [address] Phone Care Team Providers Care Sheet Rock Taper Helper Name Role Phone Provider, No-Primary Care Primary Care Provider Unavailable Coco Leos PA-C Primary Care Provider [phone] Reason for Visit * Reason Onset Date Comments Appointment Request 01/28/2017 Encounter Details Date Type Department Care Team (Late st Contact Info) Description 01/28/2017 Telephone [facility] [address] [facility] [address] [place] [address] Coco Leos PA-C [address] [place] [address] Social History Tobacco Use Types [...] encounter Miscellaneous Notes * Telephone Encounter - Ruth Mackenzie RN - 01/28/2017 12:47 PM CDT 01/28/2017 12:47 PM Edilberto called @ 1204 wondering if he can be seen? He fell Wednesday01/24/[address] [facility]. Report was made. He went to the ER last night because of L wrist pain but left due to wait. Since, this is an injury due to a fall at [facility] unsure how claim will be processed. Attempted to callAlbert but got VM without an ID. Left generic message to call back. Ruth Mackenzie RN -- 01/29/2017 10:28 AM Attempted to contact Edilberto to schedule an appointment to evaluate his wrist butgot VM without an ID. Left generic message to call back. Ruth Mackenzie RN documented in this encounter Plan of Treatment [...] needed Video/Handout: https://[facility].[employer]/yyqomve-cctm-bnmvzauahq-tens Pain Management - Exercise Pain Management No [...] details Video/Handout: https://[facility].[employer] [facility]/[employer]/rfrqlmb-zbua-jarqhdjyzq-exercise documented as of this encounter Visit Diagnoses Not on filedocumented in this encounter Additional Health Concerns Assessment Noted Time PHQ-2 Depression Total Score: 0 09/30/20 16 3:26 PM BURN OUT TENDER LACE documented as of this encounter Care Teams Sheet Rock Taper Helper Relationship Specialty Start Date End Date Provider, No-Primary Care [place] PCP - General 01/12/17 02/16/17 Coco Leos PA-C [address] [place] [address] PCP - General Physician Gaming Floor Supervisor 02/17/17 12/15/22 documented as of this encounter
--- OUTSIDE RECORDS SUMMARY | 2024-11-23 00:17 | XMS_ITS | Encounter Summary ---
Author Organization [facility] Care Address [address] [place] [address] Phone Care Team Providers Care Family Dentist Name Role Phone Provider, No-Primary Care Primary Care Provider Unavailable Coco Leos PA-C Primary Care Provider [phone] Reason for Visit * Reason Onset Date Comments Results 01/25/2017 Encounter Details Date Type Department Care Team (Late st Contact Info) Description 01/25/2017 Telephone [facility] [address] [place] [phone] Coco Loes PA-C [address] [place], [place] [phone] Social History Tobacco Use Types Packs/Day Years [...] Telephone Encounter - Ruth Mackenzie RN - 01/25/2017 8:07 AM CDT Pt's MRI with abnormalities. I Have issued consult to pain clinic. They should call him to schedule. Will have nursing notify pt. Coco Leos PA-C, 01/25/2017 8:08 AM 01/25/2017 10:04 AM Called and spoke with Edilberto and he was given the results of the MRI. Verbalizesunderstanding. He did share he fell yesterday while at [employer] landing on his buttocks. He is having increase pain to lower back and new L wrist pain. He did file an accident report through [employer] and will contact them regarding his wrist. Ruth Mackenzie RN documented in this encounter Plan of Treatment Not on file documented as of this encounter Goals Goal Patient Goal Type Associated Problems Recent Progress Patient-Stated? Author Pain Management - Transcutaneous Electrical Nerve Stimulation (TENS) Pain Management No oCco Leos PA-C Note: Transcutaneous Electrical Nerve Stimulation (TENS) Unit: Device: Modulated Dual Channel TENS unit (AccuRelief recommended) Frequency: Modulated (P6 recommended for AccuRelief) Electrode Placement: See handout for instructions Duration: 30 minutes, 3-4 times per day while active Intensity: Strong but comfortable Expected length of use: As long as needed Video/Handout: https://[facility].[place] [employer]/iggfuhc-zhee-tryxbpunbe-tens Pain Management - Exercise Pain Management No Coco Leos PA-C Note: Exercise: General Aerobic ?? Duration: 3 to 5 days per week for 20 minutes per day ?? Intensity: Moderate Strengthening: neither Back nor General (for widespread pain) nor Shoulder ?? Intensity: Moderate ?? Duration: 2 to 4 days per week ?? 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
--- OUTSIDE RECORDS SUMMARY | 2024-11-23 00:17 | XMS_ITS | Encounter Summary ---
Author Organization [facility] Care Address [address] [place] [address] Phone Care Team Providers Care Road Mender Name Role Phone Coco Leos PA-C Primary Care Provider [phone] Provider, No-Primary Care Primary Care Provider Unavailable Encounter Details Date Type Department Care Team (Late st Contact Info) Description 04/09/2017 Pharmacy Visit RX [facility] [address] [place] [phone] Social History Tobacco Use Types Packs/Day [...] documented as of this encounter Care Teams Road Mender Relationship Specialty Start Date End Date Coco Leos PA-C [address] [place], [place] [phone] PCP - General Physician Subsea Engineer 02/17/17 12/15/22 Provider, No-Primary Care [place] PCP - General 12/16/22 documented as of this encounter
--- OUTSIDE RECORDS SUMMARY | 2024-11-23 00:17 | XMS_ITS | Encounter Summary ---
Author Organization [facility] Care Address [address] [place] [address] Phone Care Team Providers Care Gasoline Service Attendant Name Role Phone Provider, No-Primary Care Primary Care Provider Unavailable Reason for Visit * Reason Comments Patient Reported Reason For Visit Encounter Details Date Type Department Care Team (Late st Contact Info) Description 01/12/2017 4:40 PM CONSULTANT DIETITIAN Lab Only [facility] [address] [place] [phone] Bon Min [address] [place] [address] Lab Services, Irl Social History Tobacco Use [...] Total Score: 0 09/30/20 16 3:26 PM CONSULTANT DIETITIAN documented as of this encounter Care Teams Gasoline Service Attendant Relationship Specialty Start Date End Date Provider, No-Primary Care [place] PCP - General 01/12/17 02/16/17 documented as of this encounter
--- OUTSIDE RECORDS SUMMARY | 2024-11-23 00:17 | XMS_ITS | Encounter Summary ---
Author Organization [facility] Care Address [address] [place] [address] Phone Care Team Providers Care Semiconductor Equipment Technician Name Role Phone Coco Leos PA-C Primary Care Provider [phone] Reason for Visit * Reason Onset Date Comments Fall 04/19/2017 Encounter Details Date Type Department Care Team (Late st Contact Info) Description 04/19/2017 Telephone [facility] [address] [facility] [address] [place] [address] Coco Leos PA-C [address] [place] [address] Social History Tobacco Use Types [...] Telephone Encounter - Ruth Mackenzie RN - 04/19/2017 12:32 PM CDT 04/19/2017 Pt calls re: 1) Fell at work last 04-16-17, and suffered a broken back and 2 carolann in his head. Will be going to [facility] today to be fit for custom back brace. 2) Told the ER doctor he had pain medication at home prescribed by you, now is taking that more frequently and is running out. Last written 04-09-17. 3) Advised to contact [facility] Comp doctor to have them prescribe the pain medication. [facility] is in [place], [place]. He would have to drive there to be seen, unsure if he would be able to tolerate the long ride there. 4) [facility] does not accept his work comp insurance. Would you be willing to prescribe more of the Oxycodone for him? MJ. Kun RN 04/19/2017, 12:37 PM I can see his ED Notes. I need to know how much he is taking and how often. Coco Leos PA-C, 04/19/2017 12:51 PM ---- 04/19/2017 4:15 PM Called and spoke with Edilberto. He takes Oxycontin BID (AM+PM) He takes the Oxycodone as originally Rx'ed - 4 but since the accident he may take up to 3.5 additional tablets. Ruth Mackenzie RN Tell him to notify the pharmacy when he is getting low and make sure he updates them on why he is taking it this way. I will issue an additional prescription at that time. Coco Leos PA-C, 04/20/2017 12:53 PM 04/20/2017 Pt. Not available on return call, left M to call back for information above from Sherry Leos. MJ. Kun RN 04/20/2017, 1:18 PM 04/20/2017 1:53 PM , Julia, called on Edilberto's behalf, she was given the information to have Edilberto call the [facility] pharmacy when he is close to being out of medication. Verbalizes understanding. Ruth Mackenzie RN documented in this encounter Plan of Treatment Not on file documented as of this encounter Visit Diagnoses Not on filedocumented in this encounter Additional Health Concerns Assessment Noted Time PHQ-2 Depression Total Score: 0 04/09/20 17 2:55 PM CDT documented as of this encounter Care Teams Semiconductor Equipment Technician Relationship Specialty Start Date End Date Coco Leos PA-C [address] [place] [address] PCP - General Physician Electrical Instrument Maker 02/17/17 12/15/22 documented as of this encounter
--- OUTSIDE RECORDS SUMMARY | 2024-11-23 00:17 | XMS_ITS | Encounter Summary ---
Author Organization [facility] Care Address [address] [place] [address] Phone Care Team Providers Care Grain Inspector Name Role Phone Provider, No-Primary Care Primary Care Provider Unavailable Coco Leos PA-C Primary Care Provider [phone] Provider, No-Primary Care Primary Care Provider Unavailable Encounter Details Date Type Department Care Team (Late st Contact Info) Description 02/09/2017 Pharmacy Visit RX [facility] [address] [place] [phone] Social History Tobacco Use Types Packs/Day [...] Total Score: 0 09/30/20 16 3:26 PM PANEL MACHINE TENDER documented as of this encounter Care Teams Grain Inspector Relationship Specialty Start Date End Date Provider, No-Primary Care [place] PCP - General 01/12/17 02/16/17 Coco Leos PA-C [address] [place], [place] [phone] PCP - General Physician Lacquer Coater 02/17/17 12/15/22 Provider, No-Primary Care [place] PCP - General 12/16/22 documented as of this encounter
--- OUTSIDE RECORDS SUMMARY | 2024-11-23 00:17 | XMS_ITS | Encounter Summary ---
Author Organization [facility] Care Address [address] [place] [address] Phone Care Team Providers Care Drywall Taper Helper Name Role Phone Stephanie Giron PA-C Primary Care Provider [phone] Reason for Visit * Reason Comments Patient Reported Reason For Visit jillian e irl irl aware of fasting Patient Reported Reason For Visit jillian e irl irl aware of fasting Encounter Details Date Type Department Care Team (Latest Contact Info) Description 04/23/2017 7:55 AM CDT - 04/23/2017 11:59 PM CDT Hospital Encounter [place] - I[facility] - Radiology [address] [address] Yassine Gale [address] [place] [address] Discharge Disposition: Home or Self [...] needed. 35.44 g 11 01/12/2017 5:22 PM CANDY DIPPER HAND 01/12/2017 omeprazole 20 mg enteric coated capsule [...] bedtime. 30 capsule 11 01/12/2017 5:22 PM CANDY DIPPER HAND 01/12/2017 7 naloxone 1 mg/mL injection syringe [...] Procedure Name Priority Date/Time Associated Diagnosis Comments US RUQ AND LIVER DOPPLER ([id number]) Routine 04/23/2017 8:30 AM CDT Esophageal varices without bleeding, unspecified esophageal varices type (HCC) documented in this encounter Results * US RUQ AND LIVER DOPPLER ([id number]) (04/23/2017 8:30 AM CDT) Anatomical Region Laterality Modality Ultrasound 04/23/2017 8:13 AM CDT Impressions 04/23/2017 12:21 PM CDT Impression: 1. Fibrofatty infiltration of the liver. 2. No evidence of portal hypertension. --- Final --- Narrative 04/23/2017 12:21 PM CDT [facility] ?? [facility] Department of Radiology ?? Ultrasound Division ? [address] [place] [address] ULTRASOUND REPORT NAME: ?EDILBERTO DURAND Date of Service: 04/23/2017 MRN NO.: ? [id number] ? Review Date: ? 04/23/2017 Patient's : 1955 ? Resident/Tech: ?? [id number] Chris Starr Patient's Age: 61 years ? Referring MD: [...] 3.9 cm. Ascites: No ascites. Procedure Note Shyanne-Yassine Jones MD - 04/23/2017 [facility] Department of Radiology Ultrasound Division [address] [place] [phone] ULTRASOUND REPORT NAME: EDILBERTO DURAND Date of Service: 04/23/2017 MRN NO.: [id number] Review Date: 04/23/2017 Patient's : 1955 Resident/Tech: [...] PA-C RAD US ORDERABLES Final Resu lt documented in this encounter Visit Diagnoses Diagnosis Esophageal varices without bleeding, unspecified esophageal varices type (HCC) documented in this encounter Additional Health Concerns Assessment Noted Time PHQ-2 Depression Total Score: 0 04/09/20 17 2:55 PM CDT documented as of this encounter Care Teams Drywall Taper Helper Relationship Specialty Start Date End Date Stephanie Giron PA-C [address] [place] [address] PCP - General Physician Pipe Smoking Machine Offbearer 02/17/17 12/15/22 documented as of this encounter
--- OUTSIDE RECORDS SUMMARY | 2024-11-23 00:18 | XMS_ITS | Encounter Summary ---
Author Organization [facility] Care Address [address] [place] [address] Phone Care Team Providers Care Fountain Clerk Name Role Phone Unavailable Primary Care Provider Unavailabl e Encounter Details Date Type Department Care Team (Late st Contact Info) Description 05/26/1983 3:28 PM CDT Hospital Encounter D[facility] Social History Tobacco Use Types Packs/Day Years Used Date Smoking Tobacco: Never Assessed Sex and Gender Information Value Date Recorded Sex Assigned at Not on file Legal Sex Male 3:41 AM CDT Gender Identity Not on file Sexual Orientation Not on file documented as of this encounter Miscellaneous Notes * Pre-Epic (IPR) - UNKNOWN, PROVIDER - 03/17/2009 12:00 AM CDT IPR Medication List as of Cut-Over on 03/15/2009 documented in this encounter Plan of Treatment [...] Video/Handout: https://[facility].org/health-library/xxhopje-dqyi-htocyxaazq-tens Pain Management - Exercise Pain Management No [...] Video/Handout: https://[facility].org/health-library/ltwpmtp-ohzu-teawlzkuin-exercise documented as of this encounter Visit Diagnoses Not on filedocumented in this encounter
--- OUTSIDE RECORDS SUMMARY | 2024-11-23 00:18 | XMS_ITS | Encounter Summary ---
Author Organization [facility] Address [address] [place] [address] Phone Care Team Providers Care Email Marketing Processor Name Role Phone Provider, No-Primary Care Primary Care Provider Unavailable Reason for Visit * Reason Comments Follow-up ape, 3-4w f/u pain m anagement Encounter Details Date Type Department Care Team (Late st Contact Info) Description 01/12/2017 2:45 PM LINE MANAGER Office Visit [facility] [address] [place] [phone] [address] [place], [place] [phone] Coco Leos PA-C [address] [place], [place] [id number] Social History Tobacco Use Types Packs/Day Years [...] Sign Reading Time Taken Comments Blood Pressure 119/77 01/12/2017 3:06 PM LINE MANAGER Pulse 71 01/12/2017 3:06 PM LINE MANAGER Temperature 37.2 ??C (99 ??F) 01/12/2017 3:06 PM LINE MANAGER Respiratory Rate 16 01/12/2017 3:06 PM LINE MANAGER Oxygen Saturation - - Inhaled Oxygen Concentration - - Weight 82.9 kg (182 lb 12.2 oz) 01/12/2017 3:06 PM LINE MANAGER Height - - Body Mass Index 25.13 09/30/2016 3:27 PM LINE MANAGER documented in this encounter Patient Instructions * Discharge Instructions* Coco Leos PA-C - 01/12/2017 4:11 PM LINE MANAGER MRI ordered, when approved you will be called to schedule. I have colonscopy and endoscopy, you will be called to schedule Labs today, we will notify you of results All prescriptions sent to [facility]. Call them if you need refills. Start gabapentin 100 mg at bedtime Start topical lidocaine on back at bed time Start taking cyclobenzaprine 1 at bed time. Follow up with me in 2-3 months. MANAGER documented in this encounter Progress Notes * Coco Leos PA-C - 01/12/2017 2:45 PM CST Clinic Note Encounter Date: 01/12/2017 Subjective: Chief Complaint: Chief Complaint Patient presents with ??? Follow-up ape, 3-4w f/u pain management History of Present Illness:Edilberto Hawley is a 61 y.o. ESTABLISED pt, whom I met for the first time in September, presents to the Department of Family Medicine [facility] for ED follow up and TO ESTABLISH CARE. He would also like referral to Pain Clinic here at [facility]. He has been followed by providers in [facility] as he is from that area. He has been living in an in [facility] since February 2016 as he is working as a member of [employer]. He was workingon [employer] here at [facility] but that project is complete. He is now He has PMH of chronic pain, back, shoulders, hands, wrists. He has had numerous surgeries in the past. He is on chronic narcotic regimen as prescribed by his PCP in [place], but would like to start receivingthese medications here so he doesn't have to drive to [place] every month for medications. He reports that he is on bid oxycontin 15 mg with prn oxycodone for breakthrough pain. He was on disability for along time, but went back to work in February 2016. He is currently working for [employer], now in [employer] doing a lot of lifting, up and down ladders. He does a lot of lifting and pulling. He reports that his mental health is improved with returning to work. He feels he gets around better as he has lost weight with return to work as well. He brings in his medications: Gabapentin 300 mg - He states he is not currently taking gabapentin as it makes him too tired and dizzy and then he can't work. The 300 mg dose is too high for him. Amitriptyline now on 75 mg; He was taking amitriptyline 100 mg and the high dose leaves him feelingtoo groggy so this has been reduced to 75 mg. cyclobenzaprine 5 mg, not taking except on weekends as it is sedating. naproxen - not taking as it has been bothering his stomach. Atorvastatin - not taking. Would like lipid panel checked. Currently his Pain is located in L shoulder ; shoulders [...] check up in April 2016. Pain here is minimal. HISTORY OF COLON POLYPS - DUE FOR COLONOSCOPY. Would like endoscopy as he has history of heart burn. He drinks a lot of coca-cola, he used to drink 2-3L/da, now drinking 32-48 oz/day. Reports occasional spells of weakness and feeling shaky. Active Problem List with Overview Notes Diagnosis [...] of 3 - Primary Series) 1953 ??? HCV Screening 1955 ??? Tdap Vaccine 1964 ??? Td Vaccine 1971 ??? Colonoscopy 2003 ??? Prostate Cancer Screening 2003 ??? Zoster Vaccine 2013 ??? Lipid Disorder Screening 01/12/2022 ??? Influenza Vaccine: Seasonal Addressed Past Surgical History Procedure Laterality Date ??? Tonsillectomy ??? Vasectomy ??? Joint replacement Family History Problem Relation Age of Onset ??? Bleeding Prob Mother Current Outpatient Prescriptions Medication Sig Dispense Refill ??? aspirin 81 mg EC tablet Take 81 mg by mouth daily. ??? cholecalciferol (VITAMIN D3) 2,000 unit capsule Take 2,000 Units by mouth daily. ??? gabapentin 100 mg capsule Take 1 capsule (100 mg total) by mouth at bedtime. 30 capsule 11 ??? lansoprazole 30 mg capsule Take 1 capsule (30 mg total) by mouth daily. 30 capsule 11 ??? lidocaine 5 % ointment Apply topically 2 times daily as needed. 35.44 g 11 ??? omeprazole 20 mg enteric coated capsule Take 20 mg by mouth daily. ??? [START ON 02/09/2017] oxyCODONE (OXYCONTIN) 15 mg XR tablet Take 1 tablet (15 mg total) by mouth2 times daily. Earliest Fill Date: 02/09/17 60 tablet 0 ??? oxyCODONE-acetaminophen 10-325 mg per tablet Take 1 tablet by mouth every 4 hours as needed (tiffany filled at [facility] ONLY). 120 tablet 0 ??? polyethylene glycol-electrolyte (GOLYTELY) suspension Take as directed the evening before your procedure. 4000 mL 0 No current facility-administered medications for this visit. No Known Allergies Social History Social History ??? Marital Status: Spouse Name: N/A ??? Number of Children: N/A ??? Years of Education: N/A Occupational History ??? Not on file. Social History Main Topics ??? Smoking status: Never Smoker ??? Smokeless tobacco: Never Used ??? Alcohol Use: No Comment: Rarely ??? Drug Use: No Comment: None since 1996 ??? Sexual Activity: Partners: Female Control/ Protection: Other Other Topics Concern ??? Not on file Social History Narrative Review of Systems All systems were reviewed [...] Arm Pain, Arm Weakness,Leg Pain Objective: BP 119/77 mmHg Pulse 71 Temp(Src) 37.2 ??C (99 ??F) (Tympanic) Resp 16 Wt 82.9 kg (182 lb 12.2 oz) Awake, alert, in no acute distress. Full affect, appropriate mood. VSS PERRLa EOMI B TM WNL Oropharynx WNL Neck supple HRRR no CMR Lungs CTAB MSK exam: weak L RC, weak bicep, limited ROM Pain in low back with resisted hip flexion Sacrum tender to palpation L spine tender to palpation. L paraspinal muscle less prominent than right Limited flexion at wais (45 degrees) Neg seated SLR Right leg with weak hip extension/flexion DTR +2 + SLR on Rleg at 30 degrees + SLR on left at 45 degrees The following are the results of tests done from the visit on 01/12/17 VITAMIN D, 25-HYDROXY Value Value Units Vitamin D, 25-OH 19 (L) 20-80 ng/mL LIPID PANEL Value Value Units Specimen Type Non-fasting Cholesterol 153 mg/dL Triglycerides 120 0-150 mg/dL HDL Cholesterol 48 >=41 mg/dL LDL - Calculated 81 <=130 mg/dL Non-HDL Cholesterol (Calc) 105 mg/dL COMPREHENSIVE METABOLIC PANEL (CMP) Value Value Units Sodium 140 135-145 mEq/L Potassium 4.1 3.5-5.0 mEq/L Chloride 100 95-107 mEq/L CO2 26 22-29 mEq/L Anion Gap 14 8-18 mEq/L BUN 15 10-20 mg/dL Creatinine 0.9 0.6-1.2 mg/dL Glucose 100 (H) 65-99 mg/dL Calcium 9.7 8.5-10.5 mg/dL Total Protein 7.9 6.0-8.0 g/dL Albumin 4.7 3.4-4.8 g/dL AST 31 0-40 U/L ALP 92 40-129 U/L Bilirubin Total 0.6 <=1.2 mg/dL ALT 26 0-41 U/L Calculated GFR 85 >60 mL/min/1.73 m2 DRUGS OF ABUSE-URINE + CONFIRM Value Value Units Amphetamines, Urine Negative Negative Benzodiazepine, Urine Negative Negative Cocaine, Urine Negative Negative Opiate, Urine Negative Negative Oxycodone, Urine Presumptive Positive (A) Negative CBC (COMPLETE BLOOD COUNT) Value Value Units WBC Count 8.3 3.7-10.5 K/MM3 RBC Count 4.79 4.50-6.20 M/MM3 Hemoglobin 15.0 13.2-17.7 g/dL Hematocrit 44 40-52 % MCV (Mean Corpuscular Volume) 92 82-99 FL MCH (Mean Corpuscular Hemoglobin) 31 25-35 PG MCHC (Mean Corpuscular Hemoglobin Concentration) 34 32-36 % Platelet Count 212 150-400 K/MM3 MPV (Mean Platelet Volume) 10.3 9.4-12.3 FL RBC Dist Width-STD 40.7 35.1-43.9 FL RBC Distrib Width 12.3 9.0-14.5 % Assessment/Plan: ICD-9-CM ICD-10-CM 1. Other chronic pain 338.29 G89.29 COMPREHENSIVE METABOLIC PANEL (CMP) DRUGS OF ABUSE-URINE + CONFIRM oxyCODONE-acetaminophen 10-325 mg per tablet gabapentin 100 mg capsule oxyCODONE (OXYCONTIN) 15 mg XR tablet OPIATE, URINE CONFIRMATION continue current medication, MRI of L spine 2. Colon cancer screening V76.51 Z12.11 ENDOSCOPY COLONOSCOPY & ENDOSCOPY UPPER 3. History of colon polyps V12.72 Z86.010 ENDOSCOPY COLONOSCOPY & ENDOSCOPY UPPER CBC (COMPLETE BLOOD COUNT) 4. Gastroesophageal reflux disease, esophagitis presence not specified 530.81 K21.9 ENDOSCOPY COLONOSCOPY & ENDOSCOPY UPPER CBC (COMPLETE BLOOD COUNT) lansoprazole 30 mg capsule 5. Vitamin D deficiency 268.9 E55.9 VITAMIN D, 25-HYDROXY 6. Lipid screening V77.91 Z13.220 LIPID PANEL 7. Low back pain with radiation, right 724.2 M54.41 MRI SPINE LUMBAR WO CONTRAST ([id number]) lidocaine 5 % ointment oxyCODONE (OXYCONTIN) 15 mg XR tablet Explained to patient that I'm happy to refer him to the pain clinic but we will need to obtain an MRI before they will schedule him. I have received outside clinic notes but no images. He is not due for oxycontin until next month and will be due for oxycodone in a few days. I reviewed opioid contract with pt and that all narcotic prescriptions will be filled at [facility] pharmacy for chronic opioid management. He is agreeable to this and signed opioid agreement. Review of non-narcotic therapies. Pt to continue amitriptyline 75 mg QHS Advised continued QHS cyclobenzaprine and prn on weekends, not to take when working as it sedates him. Gabapentin 300 mg was too sedating, will change to 100 mg QHS as he did feel it helped with burningof his back. Trial of topical lidocaine ointment to be used on back QHS. Health maintenance: Colonoscopy endoscopy ordered Due for lipid panel and vit D levels. Patient verbalizes understanding with this plan. I have requested a followup appointment in 2-3 months. I have encouraged patient to maintain his level of activity. Please note that I spent over 55 minutes face to face with the patient and > 50% of that was counseling and coordinating of care as noted above. Coco Leos PA-C MANAGER documented in this encounter Plan of Treatment Not on file documented as of this encounter Procedures Procedure Name Priority Date/Time Associated Diagnosis Comments DRUGS OF ABUSE-URINE + CONFIRM Routine 01/12/2017 4:46 PM LINE MANAGER Other chronic pain OPIATE, URINE CONFIRMATION Routine 01/12/2017 4:46 PM LINE MANAGER Other chronic pain VITAMIN D, 25-HYDROXY Routine 01/12/2017 4:44 PM LINE MANAGER Vitamin D deficiency CBC (COMPLETE BLOOD COUNT) Routine 01/12/2017 4:44 PM LINE MANAGER History of colon polyps Gastroesophageal reflux disease, esophagitis presence not specified LIPID PANEL Routine 01/12/2017 4:44 PM LINE MANAGER Lipid screening COMPREHENSIVE METABOLIC PANEL (CMP) Routine 01/12/2017 4:44 PM LINE MANAGER Other chronic pain documented in this encounter Results * ABSTRACTED BY BILLING STAFF (01/25/2017 2:24 [...] Risks: Colorectal Adenoma History: Personal History: Location: IR - PROCEDURE UNIT Consent for Operation or [...] He needs to complete recommended prep with [facility]. 3. F/U with referring provider. June Coburn MD, PhD Clinical Charge Authorizer [facility] Division of Gastroenterology & Hepatology Office: CC Provider, No-Primary Care us Coco Leos PA-C GI PROCEDURE ORDERABLES Edit ed Result - Final * MRI SPINE LUMBAR WO CONTRAST ([id number]) (01/22/2017 2:00 PM LINE MANAGER) Anatomical Region Laterality Modality Spine Magnetic Resonan ce Impressions 01/22/2017 5:07 PM LINE MANAGER Impression: 1. Multilevel degenerative changes worst at L5-S1 on the right side as detailed above. 2. Mildly increased signal in the paraspinal muscles of the lumbosacral spine consistent which may represent mild inflammation or muscle sprain. Narrative 01/22/2017 5:07 PM LINE MANAGER Procedure: MRI SPINE LUMBAR WO CONTRAST ([id number]) Indication: Right lower stomach is, back pain [...] 01/22/2017 Procedure: MRI SPINE LUMBAR WO CONTRAST ([id number]) Indication: Right lower stomach is, back pain [...] PA-C RAD MR ORDERABLES Final Resu lt * OPIATE, URINE CONFIRMATION (01/12/2017 4:46 PM LINE MANAGER) Hydrocodone Confirmation - Urine <20 ng/mL 01/17/2017 12:38 PM LINE MANAGER [facility] Oxycodone Confirmation - Urine >4000 ng/mL 01/17/2017 12:38 PM LINE MANAGER [facility] Comment:Consistent with use of a drug containing oxycodone. Oxymorphone Confirmation - Urine 71 ng/mL 01/17/2017 12:38 PM LINE MANAGER [facility] Comment: Consistent with metabolism of oxycodone. ??May also reflect independent use of oxymorphone. Hydromorphone (Dilaudid) Confirmation - Urine <20 ng/mL 01/17/2017 12:38 PM LINE MANAGER [facility] Codeine Confirmation - Urine <20 ng/mL 01/17/2017 12:38 PM LINE MANAGER [facility] Morphine Confirmation - Urine <20 ng/mL 01/17/2017 12:38 PM LINE MANAGER [facility] Noroxycodone (Oxycodone Metabolite) Confirmation - Urine >4000 ng/mL 01/17/2017 12:38 PM LINE MANAGER [facility] Comment: Noroxycodone is a metabolite of oxycodone; consistent with use of a drug containing oxycodone. Noroxymorphone (Oxycodone Metabolite) Confirmation - Urine >1000 ng/mL 01/17/2017 12:38 PM LINE MANAGER [facility] Comment: Noroxymorphone is a metabolite of oxymorphone and naloxone (nornaloxone); consistent with use of a drug containing oxymorphone or naloxone. ??Oxymorphone may also be a metabolite of oxycodone. 6-acetylmorphine (Heroin metabolite) Confirmation - Urine <10 ng/mL 01/17/2017 12:38 PM LINE MANAGER [facility] Comment: INTERPRETIVE INFORMATION: Opiates, Urine, ?Quantitative Methodology: Quantitative Liquid Chromatography-Tandem Mass Spectrometry Positive cutoff: 20 ng/mL except as specified below 6-acetylmorphine ?10 ng/mL For medical purposes only; not valid for forensic use. Identification of specific drug(s) taken by specimen donor is problematic due to common metabolites, some of which are prescription drugs themselves. The absence of expected drug(s) and/or drug metabolite(s) may indicate non-compliance, inappropriate timing of specimen collection relative to drug administration, poor drug absorption, diluted/adulterated urine, or limitations of testing. All drug analytes covered are in the non-glucuronidated (free) forms. The concentration value must be greater than or equal to the cutoff to be reported as positive. A very small amount of an unexpected drug analyte in the presence of a large amount of an expected drug analyte may reflect pharmaceutical impurity. Interpretive questions should be directed to the laboratory. Test developed and characteristics determined by [facility]. See Compliance Statement B: [employer]/ Norhydrocodone (Hydrocodone Metabolite) Confirmation - Urine <20 ng/mL 01/17/2017 12:38 PM LINE MANAGER [facility] Comment: Performed by [facility], [facility] [facility] [address] [email or web address], Jovon Aguirre MD, Lab. Director Urine specimen (specimen) 01/12/2017 4:46 PM LINE MANAGER 01/12/2017 9:38 PM LINE MANAGER Narrative SANDOVAL BARKER - 01/17/2017 12:38 PM LINE MANAGER Specimen Source: Specimen Start Date: us Coco Leos PA-C MAILOUT - RANDOM URINES Veronica l Result [facility] [address] [place] [address] * (ABNORMAL) DRUGS OF ABUSE-URINE + CONFIRM (01/12/2017 4:46 PM LINE MANAGER) Pathologist [facility] Amphetamines - Urine Negative Negative 01/12/2017 9:38 PM [facility] Comment: Test cut-off: 1000 ng/mL for d-methamphetamine. Benzodiazepines - Urine Negative Negative 01/12/2017 9:38 PM [facility] Comment: Test cut-off: ??100 ng/mL Cocaine - Urine Negative Negative 01/12/2017 9:38 PM [facility] Comment: Test cut-off: ??300 ng/mL Opiates - Urine Negative Negative 01/12/2017 9:38 PM [facility] Comment: Test cut-off: ??300 ng/mL for morphine Oxycodone - Urine Presumptive Positive(A) Negative 01/12/2017 9:38 PM [facility] Comment: Test cut-off: ??300 ng/mL Amphetamines assay cross-reacts well with amphetamine and methamphetamine, as well as the web mobile designer amphetamines MDMA ( Ecstasy ), MDA, MDEA ( Cesia ), and MBDB. Labetalol may also produce false positives due to cross-reactivity of a metabolite.The amphetamines assay has little or no cross-reactivity with ephedrine, pseudoephedrine, phentermine, and methylphenidate. Opiates assay has low cross-reactivity for buprenorphine, fentanyl, meperidine, methadone, oxycodone, and propoxyphene (all have cut-offs greater than 75,000 ng/mL). Please see Laboratory Services Handbook (http://[email or web address]/path_handbook.index.html) for more detailed information on assay cross-reactivity. Drug of abuse screening tests are to be used for medical purposes only and not for non-medical purposes (e.g., employee, certified wellness program manager, or forensic testing). Urine specimen (specimen) 01/12/2017 4:46 PM LINE MANAGER 01/12/2017 5:30 PM LINE MANAGER Coco Leos PA-C RANDOM URINE Final Result [facility] [address] [place] [address] * CBC (COMPLETE BLOOD COUNT) (01/12/2017 4:44 PM LINE MANAGER) WBC Count 8.3 3.7 - 10.5 K/MM3 01/12/2017 5:32 PM LINE MANAGER [facility] RBC Count 4.79 4.50 - 6.20 M/MM3 01/12/2017 5:32 PM LINE MANAGER [facility] Hemoglobin 15.0 13.2 - 17.7 g/dL 01/12/2017 5:32 PM LINE MANAGER [facility] Hematocrit 44 40 - 52 % 01/12/2017 5:32 PM LINE MANAGER [facility] MCV (Mean Corpuscular Volume) 92 82 - 99 FL 01/12/2017 5:32 PM LINE MANAGER [facility] MCH (Mean Corpuscular Hemoglobin) 31 25 - 35 PG 01/12/2017 5:32 PM LINE MANAGER [facility] MCHC (Mean Corpuscular Hemoglobin Concentration) 34 32 - 36 % 01/12/2017 5:32 PM LINE MANAGER [facility] Platelet Count 212 150 - 400 K/MM3 01/12/2017 5:32 PM LINE MANAGER [facility] MPV (Mean Platelet Volume) 10.3 9.4 - 12.3 FL 01/12/2017 5:32 PM LINE MANAGER [facility] RDW (RBC Distribution Width)-SD 40.7 35.1 - 43.9 FL 01/12/2017 5:32 PM LINE MANAGER [facility] RDW (RBC Distribution Width)-CV 12.3 9.0 - 14.5 % 01/12/2017 5:32 PM LINE MANAGER [facility] Whole blood specimen (specimen) 01/12/2017 4:44 PM LINE MANAGER 01/12/2017 5:29 PM LINE MANAGER Coco Leos PA-C HEMATOLOGY ORDERABLES Final Result [facility] [address] [address] * (ABNORMAL) COMPREHENSIVE METABOLIC PANEL (CMP) (01/12/2017 4:44 PM LINE MANAGER) Sodium 140 135 - 145 mEq/L 01/12/2017 9:33 PM [facility] Potassium 4.1 3.5 - 5.0 mEq/L 01/12/2017 9:33 PM [facility] Chloride 100 95 - 107 mEq/L 01/12/2017 9:33 PM [facility] CO2 26 22 - 29 mEq/L 01/12/2017 9:33 PM [facility] Anion Gap 14 8 - 18 mEq/L 01/12/2017 9:33 PM [facility] BUN (blood urea nitrogen) 15 10 - 20 mg/dL 01/12/2017 9:33 PM [facility] Creatinine 0.9 0.6 - 1.2 mg/dL 01/12/2017 9:33 PM [facility] Comment: Creatinine switched to enzymatic method on 03/24/2011. ??GFR equation switched to IDMS-traceable MDRD equation on 03/24/2011. Calculated GFR values are not valid in clinical settings where serum creatinine is changing. Glucose 100(H) 65 - 99 mg/dL 01/12/2017 9:33 PM [facility] Comment: The Expert Committee on the Diagnosis and Classification of Diabetes has defined impaired fasting glucose as greater than or equal to 100 mg/dL but less than 126 mg/dL. ??(Diabetes Care 28 (Suppl 1) S41,2005) Calcium 9.7 8.5 - 10.5 mg/dL 01/12/2017 9:33 PM [facility] Total Protein 7.9 6.0 - 8.0 g/dL 01/12/2017 9:33 PM [facility] Albumin 4.7 3.4 - 4.8 g/dL 01/12/2017 9:33 PM [facility] AST (Aspartate Aminotransferase) 31 0 - 40 U/L 01/12/2017 9:33 PM [facility] Comment: Adult reference ranges updated on 10/10/13 at 830am ALP (Alkaline Phosphatase) 92 40 - 129 U/L 01/12/2017 9:33 PM [facility] Bilirubin, Total 0.6 <=1.2 mg/dL 01/12/2017 9:33 PM [facility] ALT (Alanine Aminotransferase) 26 0 - 41 U/L 01/12/2017 9:33 PM [facility] Comment: The upper limit of normal for [...] if applicable, data from other diagnostic tests. eGFR - Calculated 85 >60 mL/min/1. 73 m2 01/12/2017 9:33 PM [facility] Blood specimen (specimen) Venipuncture / Unknown 01/12/2017 4:44 PM LINE MANAGER 01/12/2017 9:06 PM [facility] us Coco Leos PA-C CHEMISTRY ORDERABLES Final R esult [facility] [address] [place] [address] * LIPID PANEL (01/12/2017 4:44 PM LINE MANAGER) Specimen Type Non-fasti ng 01/12/2017 9:33 PM [facility] Cholesterol 153 mg/dL 01/12/2017 9:33 PM [facility] Comment: Reference Range: Less than 200 mg/dL - desirable 200 - 240 mg/dL - increased risk Above 240 mg/dL - significant risk Triglycerides 120 0 - 150 mg/dL 01/12/2017 9:33 PM [facility] Comment: Reference Ranges: ?? Normal: ?<150 mg/dL ?? Borderline-high: ?150-199 mg/dL ?? High: ? 200-499 mg/dL ?? Very high: ? > or = 500 mg/dL HDL Cholesterol 48 >=41 mg/dL 01/12/2017 9:33 PM LINE MANAGER [facility] LDL Cholesterol, Calculated 81 <=130 mg/dL 01/12/2017 9:33 PM LINE MANAGER [facility] Non-HDL Cholesterol, Calculated 105 mg/dL 01/12/2017 9:33 PM LINE MANAGER [facility] Comment: The reference ranges for Non-HDL-C are based on National Cholesterol Education III guidelines: ? Desirable: ? <130 mg/dL ? Borderline High: 130-159 mg/dL ? High: ?160-189 mg/dL ? Very High: ? > or = 190 mg/dL Blood specimen (specimen) Venipuncture / Unknown 01/12/2017 4:44 PM LINE MANAGER 01/12/2017 9:06 PM LINE MANAGER us Coco Leos PA-C CHEMISTRY ORDERABLES Final R esult [facility] [address] [place] [address] * (ABNORMAL) VITAMIN D, 25-HYDROXY (01/12/2017 4:44 PM LINE MANAGER) Vitamin D, 25-Hydroxy 19(L) 20 - 80 ng/mL 01/12/2017 11:51 PM LINE MANAGER [facility] Comment: This assay accurately quantifies the sum of 25-hydroxyvitamin D3 and 25-hydroxyvitamin D2. Endocrine Society, [place] of Medicine (IOM), and World Health Organization [...] ng/mL. Blood specimen (specimen) Venipuncture / Unknown 01/12/2017 4:44 PM LINE MANAGER 01/12/2017 9:06 PM LINE MANAGER us Coco Leos PA-C CHEMISTRY ORDERABLES Final R esult [facility] [address] [place] [address] documented in this encounter Visit Diagnoses Diagnosis Other chronic pain- Primary Colon cancer screening Special screening for malignant neoplasms, colon History of colon polyps Personal history of colonic polyps Gastroesophageal reflux disease, esophagitis presence not specified Vitamin D deficiency Unspecified vitamin D deficiency Lipid screening Screening for lipoid disorders Low back pain with radiation, right History of colon polyps- Primary Personal history of colonic polyps Gastroesophageal reflux disease, esophagitis presence not specified Colon cancer screening Special screening for malignant neoplasms, colon Low back pain with radiation, right documented in this encounter Additional Health Concerns Assessment Noted Time PHQ-2 Depression Total Score: 0 09/30/20 16 3:26 PM LINE MANAGER documented as of this encounter Care Teams Email Marketing Processor Relationship Specialty Start Date End Date Provider, No-Primary Care [place] PCP - General 01/12/17 02/16/17 documented as of this encounter
--- OUTSIDE RECORDS SUMMARY | 2024-11-23 00:18 | XMS_ITS | Encounter Summary ---
Author Organization [facility] Care Address [address] [place] [address] Phone Care Team Providers Care Form Builder Helper Name Role Phone Provider, No-Primary Care Primary Care Provider Unavailable Reason for Visit * Reason Comments Back Pain NWP, etc f u, est ca re Encounter Details Date Type Department Care Team (Late st Contact Info) Description 09/30/2016 3:00 PM LENS COATER Office Visit [facility] [address] [place] [id number] [address] [place], [place] [phone] Coco Leos PA-C [address] [place] [address] Social History Tobacco Use Types Packs/Day Years [...] Sign Reading Time Taken Comments Blood Pressure 117/72 09/30/2016 3:36 PM LENS COATER Pulse 74 09/30/2016 3:36 PM LENS COATER Temperature 36.9 ??C (98.4 ??F) 09/30/2016 3:27 PM CS T Respiratory Rate - - Oxygen Saturation - - Inhaled Oxygen Concentration - - Weight 85 kg (187 lb 6.3 oz) 09/30/2016 3:27 PM LENS COATER Height 181.6 cm (5' 11.5 ) 09/30/2016 3:27 PM CS T Body Mass Index 25.77 09/30/2016 3:27 PM LENS COATER documented in this encounter Patient Instructions * Discharge Instructions* Coco Leos PA-C - 09/30/2016 4:24 PM LENS COATER Please get a copy of your recent office visit. Follow up 3-4 weeks. COATER documented in this encounter Progress Notes * Coco Leos PA-C - 09/30/2016 3:00 PM CST Clinic Note Encounter Date: 09/30/2016 Subjective: Chief Complaint: Chief Complaint Patient presents with ??? Back Pain NWP, etc f u, est care History of Present Illness:Edilberto Hawley is a 61 y.o. New pt, whom I am meeting for the first time, presents to the Department of Family Medicine [facility] for ED follow up and TO ESTABLISH CARE. He would also like referral to Pain Clinic here at [facility]. He has been followed by providers in [facility] as he is from that area. He has been living in an in [facility] since February 2016 as he is working as a member of the [employer] that is [facility]on [employer] here at [facility]. He has PMH of chronic pain, back, shoulders, hands, wrists. He has had numerous surgeries in the past. He is on chronic narcotic regimen as prescribed by his PCP in [place], but would like to start receivingthese medications here so he doesn't have to drive to [place] every month for medications. He reports that he is on bid oxycontin 15 mg with prn oxycodone for breakthrough pain. He was on disability for along time, but went back to work in February. He reports that his mental health is improved with returning to work. He feels he gets around better as he has lost weight with return to work as well. He brings in med list (old) that has gabapentin, amitriptyline, baclofen and naproxen on it. He states he is not currently taking gabapentin as it makes him too tired and dizzy and then he can't work. The 300 mg dose is too high for him. He was taking amitriptyline but reports fairly recent dose increase from 50 to 100 mg and the high dose leaves him feeling too groggy so he doesn't like to take it if he works the next day. Currently his Pain is located in L shoulder ; shoulders get worse at night. He has L shoulder weakness. He has history of injury RC repair then bad fall with re injury, not surgical. and Left belt line - burning sensation R hand, R wrist. He has not had back surgeries. He has had epidural injections in back which were very helpful. He does get radicular pain in RLE. He had L hip replacement Last fall. Had 6 month check up in April 2016. Pain here is minimal. HISTORY OF COLON POLYPS - DUE FOR COLONOSCOPY. There are no active problems to display for this patient. Health Maintenance Topic Date Due ??? Hepatitis B Vaccine (1 of 3 - Primary Series) 1953 ??? HCV Screening 1955 ??? Tdap Vaccine 1964 ??? Td Vaccine 1971 ??? Lipid Disorder Screening 1971 ??? Colonoscopy 2003 ??? Prostate Cancer Screening 2003 ??? Zoster Vaccine 2013 ??? Influenza Vaccine: Seasonal Addressed Past Surgical History Procedure Laterality Date ??? Tonsillectomy ??? Vasectomy ??? Joint replacement Family History Problem Relation Age of Onset ??? Bleeding Prob Mother Current Outpatient Prescriptions Medication Sig Dispense Refill ??? aspirin 81 mg EC tablet Take 81 mg by mouth daily. ??? diazepam 2 mg tablet Take 1 tablet (2 mg total) by mouth every 8 hours as needed. (Patient not taking: Reported on 09/30/2016 ) 10 tablet 0 ??? omeprazole 20 mg enteric coated capsule Take 20 mg by mouth daily. ??? oxyCODONE (OXYCONTIN) 15 mg XR tablet Take 15 mg by mouth 2 times daily. ??? oxyCODONE-acetaminophen 10-325 mg per tablet Take 1 tablet by mouth every 4 hours as needed. No current facility-administered medications for this visit. No Known Allergies Social History Social History ??? Marital Status: Spouse Name: N/A ??? Number of Children: N/A ??? Years of Education: N/A Occupational History ??? Not on file. Social History Main Topics ??? Smoking status: Never Smoker ??? Smokeless tobacco: Never Used ??? Alcohol Use: No Comment: Rarely ??? Drug Use: Yes Special: Cocaine, Methamphetamines Comment: None since 1996 ??? Sexual Activity: [...] Arm Pain, Arm Weakness,Leg Pain Objective: BP 117/72 mmHg Pulse 74 Temp(Src) 36.9 ??C (98.4 ??F) (Tympanic) Ht 1.816 m (5' 11.5 ) Wt 85 kg (187 lb 6.3 oz) BMI 25.77 kg/m2 Awake, alert, in no acute distress. Full affect, appropriate mood. VSS PERRLa EOMI B TM WNL Nares with edematous turbinates Oropharynx WNL Neck supple HRRR no CMR Lungs CTAB MSK exam: weak L RC, weak bicep, limited ROM Pain in low back with resisted hip flexion Sacrum tender to palpation No results found for this visit on 09/30/16. Assessment/Plan: ICD-9-CM ICD-10-CM 1. Other chronic pain 338.29 G89.29 Explained to patient that I'm happy to refer him to the pain clinic but I need his outside records.I need copies of his previous MRIs before they will schedule him. He did fill out consent to obtaininformation forms today. I discussed with him that prior to agreeing to prescribe any of his narcotics [facility] pharmacy for chronic opioid management. Patient verbalizes understanding with this. I have requested a followup appointment in one month. No prescriptions were given to the patient today. He has an appointment with his current PCP in [place] in the next few weeks. I have encouraged patient to maintain his level of activity. No labs were ordered today as it was to review his past medical records first. If indeed he is due for colonoscopy in happy to refer him for this here at the [facility] was have reviewed his records. Please note that I spent over 45 minutes face to face with the patient and > 50% of that was counseling and coordinating of care as noted above. Coco Leos PA-C [facility] Department of Family Medicine [address] [place] [phone] COATER documented in this encounter Plan of Treatment Not on file documented as of this encounter Visit Diagnoses Diagnosis Other chronic pain- Primary documented in this encounter Additional Health Concerns Assessment Noted Time PHQ-2 Depression Total Score: 0 09/30/20 16 3:26 PM LENS COATER documented as of this encounter Care Teams Form Builder Helper Relationship Specialty Start Date End Date Provider, No-Primary Care PCP - General 07/25/16 7 documented as of this encounter
--- OUTSIDE RECORDS SUMMARY | 2024-11-23 00:18 | XMS_ITS | Encounter Summary ---
Author Organization [facility] Care Address [address] [place] [address] Phone Care Team Providers Care Outpatient Receptionist Name Role Phone Unavailable Primary Care Provider Unavailabl e Encounter Details Date Type Department Care Team (Late st Contact Info) Description 05/25/1983 4:22 PM CDT Hospital Encounter DOL Social History [...] of use: As long as needed Video/Handout: [email or web address] Pain Management - Exercise Pain Management No Coco Leos PA-C Note: Exercise: General Aerobic ?? Duration: 3 to 5 days per week for 20 minutes per day ?? Intensity: Moderate Strengthening: neither Back nor General (for widespread pain) nor Shoulder ?? Intensity: Moderate ?? Duration: 2 to 4 days per week ?? Instructions: See attached documentation for details Video/Handout: [email or web address] documented as of this encounter Visit Diagnoses Not on filedocumented in this encounter
--- OUTSIDE RECORDS SUMMARY | 2024-11-23 00:18 | XMS_ITS | Encounter Summary ---
Author Organization [facility] Care Address [address] [place] [address] Phone Care Team Providers Care Solo Truck Driver Name Role Phone Unavailable Primary Care Provider Unavailabl e Encounter Details Date Type Department Care Team (Late st Contact Info) Description 05/25/1983 5:00 PM CDT Hospital Encounter DOL Social History [...] of use: As long as needed Video/Handout: [email or web address] Pain Management - Exercise Pain Management No Coco Leos PA-C Note: Exercise: General Aerobic ?? Duration: 3 to 5 days per week for 20 minutes per day ?? Intensity: Moderate Strengthening: neither Back nor General (for widespread pain) nor Shoulder ?? Intensity: Moderate ?? Duration: 2 to 4 days per week ?? Instructions: See attached documentation for details Video/Handout: [email or web address] documented as of this encounter Visit Diagnoses Not on filedocumented in this encounter
--- OUTSIDE RECORDS SUMMARY | 2024-11-23 00:18 | XMS_ITS | Encounter Summary ---
Author Organization [facility] Care Address [address] [place] [address] Phone Care Team Providers Care Card Stripper Name Role Phone Provider, No-Primary Care Primary Care Provider Unavailable Reason for Visit * Reason Comments Back Pain Encounter Details Date Type Department Care Team (Late st Contact Info) Description 07/25/2016 12:39 PM CDT - 07/25/2016 2:37 PM CDT [facility] [place] [address] Elpidio Burk MD [address] [place], [place] [phone] Elpidio Canas MD [address] [place], [place] [phone] Discharge Disposition: Home or Self Care Social History Tobacco Use Types Packs/Day Years Used Date Smoking Tobacco: Never Smokeless Tobacco: Never Alcohol Use Standard Drinks/Week Comments Yes 0 (1 standard drink = 0.6 oz pur e alcohol) Rarely Sex and Gender Information Value Date Recorded Sex Assigned at Not on file Legal Sex Male 3:41 AM CDT Gender Identity Not on file Sexual Orientation Not on file documented as of this encounter Last Filed Vital Signs Vital Sign Reading Time Taken Comments Blood Pressure 129/75 07/25/2016 12:26 PM CDT Pulse 68 07/25/2016 12:26 PM CDT Temperature 36.9 ??C (98.4 ??F) 07/25/2016 12:26 PM C DT Respiratory Rate 18 07/25/2016 12:26 PM CDT Oxygen Saturation 98% 07/25/2016 12:26 PM CDT Inhaled Oxygen Concentration - - Weight 80.3 kg (177 lb) 07/25/2016 1:16 PM CDT Height 180.3 cm (5' 11 ) 07/25/2016 1:16 PM CDT Body Mass Index 24.69 07/25/2016 1:16 PM CDT documented in this encounter Medications at Time of Discharge cyclobenzaprine 10 mg tablet Take 10 mg by mouth at bedtime. 07/19/2014 08/09/2017 diazepam 2 mg tabletIndications :Right-sided thoracic back pain Take 1 tablet (2 mg total) by mouth every 8 hours as needed. 10 tablet 0 07/25/2016 01/12/2017 documented as of this encounter Nursing Notes * Janelle Cerrato RN - 07/25/2016 2:37 PM CDT 07/25/16 1614 Care Coordination Activities/ED Nurse Navigator Pt needs assessed by ED Nurse Navigator Yes Appointment scheduling with HC specialty provider Time spent Less than 20 minutes ED Nurse Navigator Note Patient: Edilberto Hawley Date: 07/25/2016 Chief Complaint Patient presents with ??? Back Pain ED Nurse Navigator Consult: Received request to obtain Pain Clinic appointment. Consult in [facility]. Mess forwarded to Pain Clinic schedulers. Navigators to follow. Elisa Cespedes RN BSN ED Nurse Navigator 09/09 Called and spoke to client regarding pain clinic appointment and the need to have a referral from pcp. Patient reports he would like to get established with a PCP here. Request forwarded to schedulers. Schedulers to contact patient for appointment and Navigators to monitor. Vicenta DELANEY, SPINDLE TESTER Nurse Navigator 09/25 Note to PAC production planner scheduler to assist with coordinating [place] PCP to refer pt to pain clinic and follow pain clinic recommendations. Navigators to follow. Janelle Cerrato RN, BSN, [facility] ED Nurse Navigator 09/28 Patient has an appointment on 09/30/16. Navigators closing consult. Janelle Cerrato RN, BSN, [facility] ED Nurse Navigator S AND MARKETING ANALYST S AND MARKETING ANALYST documented in this encounter ED Notes * Elpidio Burk MD - 07/25/2016 1:13 PM CDT ED PROVIDER NOTE - ADULT Chief Complaint Patient presents with ??? Back Pain HPI: 60 y.o. male presenting with a 3 day history of right sided thoracic back pain, worse with movements, and deep breaths first noted after hitting his back on a coat rack at work when going from working on his knees to standing. Denies any chest pain. ONSET: 3 days ago LOCATION: right sided thoracic back SEVERITY: moderate QUALITY: sharp, stabbing TIMING: acute MODIFYING FACTORS: improved with percocet, massage, head packs. ASSOCIATED SYMPTOMS: back pain Review of Systems: Denies symptoms of chest pain, dyspnea, and incontinence. All other systems were reviewed, and are negative unless stated in the HPI. No Known Allergies Discharge Medication List as of 07/25/2016 2:17 PM There are no active problems to display for this patient. Past medical history: HLD Past surgical History: Left hip arthroplasty Left and Right shoulder surgeries R wrist carpal tunnel release L elbow surgery History Social History ??? Marital Status: Spouse Name: N/A ??? Number of Children: N/A ??? Years of Education: N/A Occupational History ??? Not on file. Social History Main Topics ??? Smoking status: Never Smoker ??? Smokeless tobacco: Never Used ??? Alcohol Use: Yes Comment: Rarely ??? Drug Use: Yes Special: Cocaine, Methamphetamines Comment: None since 1996 ??? Sexual Activity: Not on file Other Topics Concern ??? Not on file Social History Narrative ??? No narrative on file No family history on file. Physical Examination: BP 129/75 mmHg Pulse 68 Temp(Src) 36.9 ??C (98.4 ??F) (Tympanic) Resp 18 Ht 1.803 m (5' 11 ) Wt 80.287 kg (177 lb) BMI 24.70 kg/m2 SpO2 98% Constitutional: appears stated age. Eyes: PERRL, EOMI. No scleral icterus or conjunctival erythema HEENT: Oropharynx moist without erythema or lesions Neck: No JVD, bruits, adenopathy, or masses CV: Regular rate and rhythm without murmur. Respiratory: Breathing unlabored. Lungs clear to auscultation bilaterally Abdomen: Soft, non-tender, non-distended, normal bowel sounds Back: No CVA or vertebral tenderness. Right sided thoracic back pain with TTP medial to the tip of the scapula. Skin: Normal color, warm and dry Extremities: Non-tender. No pedal edema or ischemic skin changes Neuro: Alert and oriented x 3. Strength grossly normal. Sensation grossly normal. RESULTS REVIEWED Lab Results: Labs Reviewed - No data to display Radiology Results: No orders to display No results found for this visit on 07/25/16. EKG: None Medications Administered in ED : Medications diazepam (VALIUM) tablet 5 mg (5 mg Oral Given 07/25/16 1316) ketorolac (TORADOL) 60 mg/2 mL injection 30 mg (30 mg Intramuscular Given 07/25/16 1401) Consults: None Emergency Department Course: Patient presenting with acute onset back pain. No evidence for cauda equina, spinal infection, bonyinjury, other significant pathology. The patient did not have any urinary incontinence, bowel incontinence, saddle anesthesia, fever, or weight loss that would warrant imaging. Hemodynamically stablewithout chest pain no concern for aortic dissection. Patient was provided with 5 mg valium and IM toradol in ED. Provided prescription for valium. Patient was advised to followup with primary physician in7-14 days if continues to have back pain and wished to be seen in pain clinic, outpatient consult placed. Advised to return to ER if signs of cauda equina or spinal infection including loss of bowel or bladder function, peripheral numbness/weakness/tingling, significant fevers, or other concerns. At time of discharge patient able to ambulate and vitals stable. Impression: Right sided thoracic back pain Plan: ?? Discharge from ED ?? Continue home percocet. ?? Prescribed Valium 2 mg PO q6h PRN Spasm ?? F/U with PCP in 7-14 days if pain continues. ?? Placed outpatient pain clinic consult. ?? Informed to return to ETC if has new or worsening symptoms. Expressed understanding of and agreement with plan and all questions answered. Discharge Medication List as of 07/25/2016 2:17 PM START taking these medications Details diazepam 2 mg tablet Take 1 tablet (2 mg total) by mouth every 8 hours as needed., Disp-10 tablet, R-0, Print Local Giuliano Davis MD Department of Emergency Medicine [facility] Healthcare Staff and Resident/Fellow Teaching Statement I have interviewed and examined the patient and confirm the pertinent findings. I have discussed the case with the resident/fellow and agree with the findings and plan as documented. Elpidio Burk MD documented in this encounter Plan of [...] use: As long as needed Video/Handout: [email or web address] Pain Management - Exercise Pain Management Coco Vega PA-C Note: Exercise: General Aerobic ?? Duration: 3 to 5 days per week for 20 minutes per day ?? Intensity: Moderate Strengthening: neither Back nor General (for widespread pain) nor Shoulder ?? Intensity: Moderate ?? Duration: 2 to 4 days per week ?? Instructions: See attached documentation for details Video/Handout: [email or web address] documented as of this encounter Visit Diagnoses Diagnosis Right-sided thoracic back pain- Primary documented in this encounter Administered Medications Inactive Administered Medications - up to 3 most recent administrations Medication Order MAR Action Action Date Dose Rate Site diazepam (VALIUM) tablet 5 mg 5 mg, Oral, Once, On 07/25/16 at 1330, For 1 dose Given 07/25/2016 1:16 PM CDT 5 mg ketorolac (TORADOL) 60 mg/2 mL injection 30 mg 30 mg, Intramuscular, Once, On 07/25/16 at 1400, For 1 dose Given 07/25/2016 2:01 PM CDT 30 mg D eltoid, Right documented in this encounter Active and Recently Administered Medications Times are shown in CDT. Scheduled Medication Order 07/23/2016 07/24/2016 07/25/2016 diazepam (VALIUM) tablet 5 mg (COMPLETED) 5 mg, Oral, Once, On 07/25/16 at 1330, For 1 dose 1316 (Given - Provid er: Brittany Zarco RN) ketorolac (TORADOL) 60 mg/2 mL injection 30 mg (COMPLETED) 30 mg, Intramuscular, Once, On 07/25/16 at 1400, For 1 dose 1401 (Given - Provid er: Brittany Zarco RN) documented in this encounter Care Teams Card Stripper Relationship Specialty Start Date End Date Provider, No-Primary Care PCP - General 07/25/16 7 documented as of this encounter
--- OUTSIDE RECORDS SUMMARY | 2024-11-23 00:18 | XMS_ITS | Encounter Summary ---
Author Organization [facility] Care Address [address] [place] [address] Phone Care Team Providers Care Art Educator Name Role Phone Provider, No-Primary Care Primary Care Provider Unavailable Reason for Visit * Reason Onset Date Comments Shoulder Pain 07/25/2016 Encounter Details Date Type Department Care Team (Late st Contact Info) Description 07/25/2016 Nurse Triage [facility] [address] [place] [address] Eri Casas [address] [place], [place] [phone] Social History Tobacco Use Types Packs/Day Years [...] encounter Miscellaneous Notes * Telephone Encounter - Eri Casas RN - 07/25/2016 11:38 AM CDT Edilberto Hawley [phone] calling to report patient is having sever shoulder pain and is on and hasno mobility. States he plans to come to ED. Advised to come in to be evaluated. Patient verbalized understanding and denies any other needs. * Telephone Encounter - Eri Casas RN - 07/25/2016 11:31 AM CDT ----- Message from Chela Mackenzie sent at 07/25/2016 11:30 AM CDT ----- >> Chela Mackenzie 07/25/2016 11:30 AM Emergent call. Edilberto Hawley [phone] will be driving in to the ED from [place]. Called in on [phone]. Healthcare. Muscle pain. Back Pain. documented in this encounter Plan of Treatment Not on file documented as of this encounter Visit Diagnoses Not on filedocumented in this encounter Care Teams Art Educator Relationship Specialty Start Date End Date Provider, No-Primary Care PCP - General 07/25/16 7 documented as of this encounter
--- OUTSIDE RECORDS SUMMARY | 2024-11-23 00:23 | XMS_ITS | Encounter Summary ---
Author Organization [employer] Address [address] [place] [address] Care Team Providers Care Frontload Driver Name Role Phone Lacey Perdue MD Unavailable [phone] Patient, None Per Primary Care Provider Unavaila ble Encounter Details Date Type Department Care Team (Late st Contact Info) Description 09/15/2023 Orders Only [facility] Centralized Scanning Provider, Not In System Social History Tobacco Use Types Packs/Day Years Used Date Smoking Tobacco: Never Smokeless Tobacco: Never Alcohol Use Standard Drinks/Week Comments No 0 (1 standard drink = 0.6 oz pur e alcohol) PHQ-2 Answer Date Recorded PHQ-2 Total Score 0 09/17/2022 Sex and Gender Information Value Date Recorded Sex Assigned at Not on file Legal Sex Male 10:58 AM CDT Gender Identity Not on file Sexual Orientation Not on file Occupation Industry Job Start Date Job End Date Retired Not on file Not on file Not on file documented as of this encounter Functional Status * Are you deaf or do you have serious difficulty hearing? Answer Date of Assessment Author No 10/25/2017 2:00 PM Deonna Padilla ARNP * Are you blind or do you have serious difficulty seeing, even when wearing glasses? Answer Date of Assessment Author No 10/25/2017 2:00 PM Deonna Padilla ARNP * Do you have serious difficulty walking or climbing stairs? (5 years old or older) Answer Date of Assessment Author No 10/25/2017 2:00 PM Deonna Padilla, GEORGE * Do you have difficulty dressing or bathing? (5 years old or older) Answer Date of Assessment Author No 10/25/2017 2:00 PM Deonna Padilla ARNP * Because of a physical, mental, or emotional condition, do you have difficulty doing errands alone such as visiting a doctor's office or shopping? (15 years old or older) Answer Date of Assessment Author No 10/25/2017 2:00 PM Deonna Padilla ARNP documented as of this encounter Mental Status * Because of a physical, mental, or emotional condition, do you have serious difficulty concentrating, remembering, or making decisions? (5 years old or older) Answer Entry Date Author No 10/25/2017 2:00 PM Deonna Padilla ARNP documented in this encounter Plan of Treatment Not on file documented as of this encounter Goals Goal Patient Goal Type Associated Problems Recent Progress Patient-Stated? Author Blood Pressure < 140/90 Blood Pressure 134/86(2022 2:25 PM CDT) No Leonard Jasso APRN documented as of this encounter Procedures Procedure Name Priority Date/Time Associated Diagnosis Comments COLONOSCOPY Routine 12/07/2018 documented in this encounter Results * Colonoscopy (12/07/2018) us Not In System Provider HEALTH MAINTENANCE Final Result documented in this encounter Visit Diagnoses Not on filedocumented in this encounter Additional Health Concerns Assessment Noted Time A fall risk assessment has been complete d for the patient 09/17/2022 9:09 AM CDT A Body Mass Index follow-up plan has been documented for the patient 09/17/2022 9:29 AM CDT documented as of this encounter Care Teams Frontload Driver Relationship Specialty Start Date End Date Patient, None Per PCP - General 03/04/23 Lacey Perdue MD [address] [phone] Referring Physician Infectious Diseases 06/28/18 documented as of this encounter
--- OUTSIDE RECORDS SUMMARY | 2024-11-23 00:23 | XMS_ITS | Clinical Summary ---
Author Organization [employer] Address [address] [place] [address] Care Team Providers Care Drencher Name Role Phone Lacey Perdue MD Unavailable [phone] Patient, None Per Primary Care Provider Unavaila ble Source Comments This disclosure is being made pursuant to the DocuTAP program and maynot contain all information available regarding this patient.[facility] Allergies No known active allergies Medications Probiotic Product (SOLUBLE FIBER/PROBIOTICS PO) Take 1 tablet by mouth daily. Active vitamin D (CHOLECALCIFEROL) 1000 units tablet Take 1,000 Units by mouth daily. Active Multiple Vitamins-Minerals (ONE DAILY MULTIVITAMIN ADULT PO) Take by mouth. Active Ascorbic Acid (VITAMIN C) 500 MG tablet Take 500 mg by mouth daily. Active zinc sulfate (ZINCATE) 220 (50 Zn) MG capsule Take 220 mg by mouth daily. Active aspirin 325 MG tablet Take 325 mg by mouth. Active albuterol 108 (90 Base) MCG/ACT inhaler Inhale 2 (two) puffs into the lungs every 4 (four) hours as needed for Wheezing. 1 each 1 2 Active diclofenac sodium (VOLTAREN) 50 MG EC tablet Take 1 (one) tablet by mouth 2 (two) times daily. 60 tablet 5 2 Active ferrous sulfate 324 (65 FE) MG EC tablet Take 324 mg by mouth 3 (three) times daily with meals. Active baclofen (LIORESAL) 10 MG tablet TAKE ONE TABLET BY MOUTH THREE TIMES DAILY NEEDED 30 tablet 2 Active docusate sodium (COLACE) 100 MG capsule Take 1 (one) capsule by mouth 2 (two) times daily as needed for Constipation . 60 capsule 1 2 Active Active Problems Problem Noted Date Diagnosed Date Hepatic steatosis 07/28/2021 Sensory hearing loss, bilateral 06/05/2021 Cellulitis of axilla, right 09/13/2020 Staphylococcal arthritis of right ankle 06/28/20 18 Acute adjustment disorder with depressed mood Chronic bilateral low back pain with sciatica Rotator cuff injury 10/25/2017 Closed fracture of transvers e process of lumbar vertebra with routine healing 05/19/2017 alf current use of opiate analgesic 2016 Spinal stenosis 11/24/2016 History of repair of left rotator cuff 6 Overview (02/25/2021): Overview: 2016 Sciatica 05/14/2016 Hyperlipidemia 11/06/2015 Avascular necrosis of bone 04/09/2015 Chronic pain 10/06/2014 Overview (02/25/2021): Overview: OA - shoulders, wrists, hands, back Lumbar radiculopathy Femoral acetabular impingement 10/06/2014 Herniation of lumbar intervertebral disc without myelopathy 10/06/2014 Osteoarthritis of lumbar spine 10/06/2014 Pain of left lower extremity 10/05/2014 Substance abuse Overview (06/24/2018): cocaine, crystal meth nothing since 1996 Migraines Chronic back pain greater than 3 months duration Arthritis Immunizations Immunization Administration Dates Next Due Influenza (FLUAD) aIIV3 11/03/2019 Influenza (FLUAD) aIIV4 PREFILLED SYRINGE 2021 Influenza H1N1 preservative free 08/11/2011 Influenza, inactivated, quad rivalent, ALL AGES 6 months and older, single dose syringe/vial 08/23/2020,09/15/2018,08/09/2017 Influenza, unspecified formulation 08/13/2016,,08/16/2012 Pneumococcal Polysaccharide- 23 (Pneumovax 23) PPSV23 01/21/2018 Tdap 04/16/2017 Tetanus and Diphtheria (Tenivac) Td 05/15/2010 Family History Medical History Relation Name Comments Dementia Mother Relation Name Status Comments Father Mother Alive Social History Tobacco Use Types Packs/Day Years Used Date Smoking Tobacco: Never Smokeless Tobacco: Never Tobacco Cessation:Counseling Given: Not Answered Alcohol Use Standard Drinks/Week Comments No 0 [...] file Not on file Not on file Last Filed Vital Signs Vital Sign Reading Time Taken Comments Blood Pressure 134/86 03/04/2023 2:25 PM CDT Pulse 80 03/04/2023 2:25 PM CDT Temperature 36.7 ??C (98 ??F) 08/10/2022 9:00 PM CDT Respiratory Rate 14 08/10/2022 9:00 PM CDT Oxygen Saturation 96% 03/04/2023 2:25 PM CDT Inhaled Oxygen Concentration - - Weight 88.6 kg (195 lb 6.4 oz) 03/04/2023 2:25 P M CDT Height 180.3 cm (5' 11 ) 08/10/2022 6:22 PM CDT Body Mass Index 27.25 08/10/2022 6:22 PM CDT Plan of Treatment Health Maintenance Due Date Last Done Comments CT Colonography 1953 Fecal DNA Test 1955 FOBT/FIT 1973 First Medicare Annual Wellness (AWV) 01/13/1993 Zoster (Shingles) Vaccine 50+ (1 of 2) 2003 Pneumococcal Vaccines 50+ (2 of 2 - PCV) 01/21/2019 01/21/2018 Lab-Urine Drug Screen 12/23/2022 12/23/2021 , 07/28/2021, 05/29/2021, Additional history exists Controlled Substance Agreement-Annual Review 05/12/2023 05/12/2022, 12/23/2021, 09/01/2018 Lab-Lipids 05/12/2023 05/12/2022, 02/0 06/2022, 05/29/2021, Additional history exists Sigmoidoscopy 12/07/2023 12/07/2018 (Charged) COVID-19 Vaccine ( - 2023- season) 2024 Influenza Vaccine (#1) 2024 , 08/23/2020, 11/03/2019, Additional history exists Tetanus/Pertussis Vaccine Teen/Adult (2 - Td or Tdap) 04/16/2027 04/16/2017, 05/15/2010 RSV Adult (1 - 1-dose 75+ series) 2028 Colonoscopy 12/07/2028 12/07/2018, 11/16 (Charged) Colorectal Cancer Screening 12/07/2028 Lab-Hepatitis C Screening Completed 07/28/2021 Subsequent Medicare Annual Wellness Visit (AWV) Discontinued 10/14/2021 HIB Vaccine Aged Out No longer eligi ble based on patient's age to complete this topic HPV Vaccine (F:9-26YO,M: 9-22) Aged Out No longer eligible based on patient's age to complete this topic Hepatitis A Vaccine Aged Out No longe r eligible based on patient's age to complete this topic IPV Vaccine Aged Out No longer eligi ble based on patient's age to complete this topic Meningococcal Conjugate Vaccine Aged Out No longer eligible based on patient's age to complete this topic RSV < 20 Months Aged Out No longer el igible based on patient's age to complete this topic Goals Goal Patient Goal Type Associated Problems Recent Progress Patient-Stated? Author Blood Pressure < 140/90 Blood Pressure 134/86(2022 2:25 PM CDT) No Leonard Jasso APRN Procedures Procedure Name Priority Date/Time Associated Diagnosis Comments LIPID PANEL Routine 05/12/2022 11:22 AM CDT Intractable abdominal pain Other osteoarthritis involving multiple joints Well adult exam CONTROLLED SUBSTANCE AGREEMENT Routine 05/12/2022 PAIN MANAGEMENT PROFILE 1 WITH CONFIRM, WITH D/L, URINE Routine 12/23/2021 1:07 PM DEHAIRER Encounter for long-term current use of medication HEPATITIS C ANTIBODY Routine 07/28/2021 9:51 AM CDT Need for hepatitis C screening test COLONOSCOPY Routine 12/07/2018 from Last 3 Months or Most Recently Relevant to Health Maintenance Results * (ABNORMAL) Lipid panel (05/12/2022 11:22 AM CDT) Cholesterol 143 0 - 200 mg/dL [facility] Comment:Cholesterol preferre d <200 mg/dL. Clinical correlation is essential. Triglycerides 88 0 - 200 mg/dL [facility] HDL Cholesterol 43(L) >60 mg/dL [facility] LDL, Calculated 82.4 mg/dL [facility] Comment: <100 ?Optimal 100-129 ? Near Optimal/Above Optimal 130-159 ? Borderline High 160-189 ? High >or =190 ?Very High Cholesterol/HDL Ratio 3.3 [facility] Comment:HDL:Chol ratio Low R isk 1:3.3-1:4.3, Clinical Correlation essential. Blood 05/12/2022 11:2 2 AM CDT 05/12/2022 11:23 AM CDT Comment:- Narrative [facility] - 05/12/2022 11:45 AM CDT Testing performed at [facility], [address] [place] [address]. CLIA [id number] Phone [phone] Ext [phone] ??Mud Trucker Shant Rivas MD Jose Manuel Villegas MD LAB BLOOD ORDERABLES Final Result [facility] [address] [place] [phone] [phone] * Controlled Substance Agreement (05/12/2022) Jose Manuel Villegas MD SUBSTANCE ABUSE ORDERABLES Final Result * (ABNORMAL) Pain Management Profile 1 With Confirm, With D/L, Urine (12/23/2021 1:07 PM DEHAIRER) medMATCH Summary SEE NOTE [facility] Comment: ?Prescribed ?Prescribed ?Not Prescribed ?Consistent ?Inconsistent ?Inconsistent ?Oxycodone ? [KS] Prescribed Drug 1 Oxycodone QU [facility] Comment: [KS] Testing performed at: [facility] [address] [place], [phone], Mud Trucker: Osvaldo Rios D.O., MPH Amphetamines NEGATIVE <500 ng/mL [facility] Comment:[CB] Barbiturates NEGATIVE <300 ng/mL [facility] Comment:[CB] Benzodiazepines NEGATIVE <100 ng/mL [facility] Comment:[CB] Cocaine Metabolite NEGATIVE <150 ng/mL [facility] Comment:[CB] Marijuana Metabolite NEGATIVE <20 ng/mL [facility] Comment:[CB] Methadone NEGATIVE <100 ng/mL [facility] Comment:[CB] Opiates NEGATIVE CONFIRMED <100 ng/mL [facility] Comment:[CB] Codeine NEGATIVE <50 ng/mL [facility] Comment:[CB] Hydrocodone NEGATIVE <50 ng/mL [facility] Comment:[CB] Hydromorphone NEGATIVE <50 ng/mL [facility] Comment:[CB] Morphine UR NEGATIVE <50 ng/mL [facility] Comment:[CB] Norhydrocodone NEGATIVE <50 ng/mL [facility] Comment:[CB] Opiates Comments SEE NOTE [facility] Comment: See LDT Notes [CB] Oxycodone POSITIVE(A) <100 ng/mL [facility] Comment:[CB] Noroxycodone, UR >[address](H) <50 ng/mL [facility] Comment:[CB] MEDMATCH NOROXYCODONE CONSISTENT [facility] Comment:[CB] Oxycodone >96502(H) <50 ng/mL [facility] Comment:[CB] medMATCH Oxycodone CONSISTENT [facility] Comment:[CB] Oxymorphone >63385(H) <50 ng/mL [facility] Comment:[CB] medMATCH Oxymorphone CONSISTENT [facility] Comment:[CB] Oxycodone Comments SEE NOTE Q [facility] Comment: See Oxycodone Notes, LDT Notes [CB] Phencyclidine NEGATIVE <25 ng/mL [facility] Comment:[CB] Creatinine Urine >300.0 > or = 20.0 mg/dL [facility] Comment:[CB] pH 5.9 4.5 - 9.0 [facility] Comment:[CB] Oxidant NEGATIVE <200 mcg/mL [facility] Comment:[CB] Comments: SEE NOTE [facility] Comment: This drug testing is for medical treatment only. Analysis was performed as non-forensic testing and these results should be used only by healthcare providers to render diagnosis or treatment, or to monitor progress of medical conditions. Oxycodone Notes: Oxycodone, Noroxycodone, Oxymorphone detected is consistent with the use of the drug Oxycodone. Oxymorphone detected is consistent with the use of the drug Oxymorphone. Oxymorphone can be a prescribed drug and is also a metabolite of Oxycodone. LDT Notes: Confirmation tests were developed and their analytical performance characteristics have been determined by [employer]. It has not been cleared or approved by the FDA. This assay has been validated pursuant to the CLIA regulations and is used for clinical purposes. medMATCH(R) enables providers to identify if drug use is consistent or inconsistent with a corresponding prescribed medication(s) list. Healthcare Providers needing Interpretation assistance, please contact us at [phone] ( ) M-F, 8am to 10pm EST [KS] Urine 12/23/2021 1:07 PM DEHAIRER 12/24/2021 3:36 AM DEHAIRER Narrative [facility] [employer] [facility] - 12/28/2021 2:40 PM DEHAIRER Testing performed at: [place], [address] [facility], [place], [phone], Mud Trucker: Osvaldo Rios D.O., MPH us Michell Trevizo MD URINE ORDERABLES Final Result Performing Organization Address [facility] Co de Phone Number [facility] [address] [place] [phone] * Hepatitis C antibody (07/28/2021 9:51 AM CDT) Hep C Ab Nonreactive Nonreactive [facility] Blood 07/28/2021 9:51 AM CDT 07/28/2021 10:33 AM CDT Comment:- Narrative [facility] - 07/30/2021 11:11 AM CDT Testing performed at [facility], [address] [place] [address]. CLIA [id number] Phone [phone] Ext [phone] ??Mud Trucker Shant Rivas MD us Michell Trevizo MD LAB BLOOD ORDERABLES Final Res ult Performing Organization Address [facility] Co de Phone Number [facility] [address] [place] [phone] * HM Colonoscopy (12/07/2018) us Not In System Provider HEALTH MAINTENANCE Final Result from Last 3 Months or Most Recently Relevant to Health Maintenance Insurance WORKERS COMPENSATION Advance Directives * Full Code (Latest Code Status on File) Date Activated Date Inactivated Comments 10/25/2017 1:39 PM 10/29/2017 3:17 PM Care Teams Drencher Relationship Specialty Start Date End Date Patient, None Per PCP - General 03/04/23 Lacey Perdue MD [address] [phone] Referring Physician Infectious Diseases 06/28/18
--- OUTSIDE RECORDS SUMMARY | 2024-11-23 00:24 | XMS_ITS | Encounter Summary ---
Author Organization [employer] Address [address] [place] [address] Care Team Providers Care Car Ferrier Name Role Phone Lacey Perdue MD Unavailable [phone] Michell Trevizo MD Primary Care Provider [phone] Reason for Visit * Reason Comments Medication Refill Encounter Details Date Type Department Care Team (Late st Contact Info) Description 12/23/2021 Refill [facility] Internal Medicine [address] [place] [phone] Michell Trevizo MD [address] [place] [phone] Social History Tobacco Use Types Packs/Day Years Used Date Smoking Tobacco: Never Smokeless Tobacco: Never Alcohol Use Standard Drinks/Week Comments No 0 (1 standard drink = 0.6 oz pur e alcohol) PHQ-2 Answer Date Recorded PHQ-2 Total Score (RETIRED) 0 08/15 Sex and Gender Information Value Date Recorded Sex Assigned at Not on file Legal Sex Male 10:58 AM CDT Gender Identity Not on file Sexual Orientation Not on file Occupation Industry Job Start Date Job End Date Retired Not on file Not on file Not on file COVID-19 Exposure Response Date Recorded In the last month, have you been in contact with someone who was confirmed or suspected to have Coronavirus / COVID-19? No / Unsure 12/23/2021 11:28 AM THERAPY DIRECTOR documented as of this encounter Functional Status * Are you deaf or do you have serious difficulty hearing? Answer Date of Assessment Author No 10/25/2017 2:00 PM Deonna Padilla, FERRY OPERATOR * Are you blind or do you have serious difficulty seeing, even when wearing glasses? Answer Date of Assessment Author No 10/25/2017 2:00 PM Deonna Padilla S, FERRY OPERATOR * Do you have serious difficulty walking or climbing stairs? (5 years old or older) Answer Date of Assessment Author No 10/25/2017 2:00 PM Deonna Padilla S, FERRY OPERATOR * Do you have difficulty dressing or bathing? (5 years old or older) Answer Date of Assessment Author No 10/25/2017 2:00 PM Deonna Padilla, FERRY OPERATOR * Because of a physical, mental, or emotional condition, do you have difficulty doing errands alone such as visiting a doctor's office or shopping? (15 years old or older) Answer Date of Assessment Author No 10/25/2017 2:00 PM Deonna Padilla, FERRY OPERATOR documented as of this encounter Mental Status * Because of a physical, mental, or emotional condition, do you have serious difficulty concentrating, remembering, or making decisions? (5 years old or older) Answer Entry Date Author No 10/25/2017 2:00 PM Deonna Padilla, FERRY OPERATOR documented in this encounter Plan of Treatment Not on file documented as of this encounter Goals Goal Patient Goal Type Associated Problems Recent Progress Patient-Stated? Author Blood Pressure < 140/90 Blood Pressure 134/86(2022 2:25 PM CDT) No Leonard Jasso APRN documented as of this encounter Visit Diagnoses Not on filedocumented in this encounter Additional Health Concerns Assessment Noted Time A fall risk assessment has been complete d for the patient 08/27/2021 11:36 AM CDT A Body Mass Index follow-up plan has been documented for the patient 12/23/2021 12:30 PM THERAPY DIRECTOR documented as of this encounter Care Teams Car Ferrier Relationship Specialty Start Date End Date Michell Trevizo MD [address] [place] [address] PCP - General Internal Medicine 05/29/21 02/25/22 Lacey Perdue MD [address] [phone] Referring Physician Infectious Diseases 06/28/18 documented as of this encounter
--- OUTSIDE RECORDS SUMMARY | 2024-11-23 00:24 | XMS_ITS | Encounter Summary ---
Author Organization [employer] Address [address] [place] [phone] Care Team Providers Care Equipment Associate Name Role Phone Lacey Perdue MD Unavailable [phone] Jose Manuel Villegas MD Primary Care Provider Encounter Details Date Type Department Care Team (Latest Contact Info) Description 09/17/2022 Travel Social History Tobacco Use Types Packs/Day [...] Exposure Response Date Recorded In the last 10 days, have mahnaz u been in contact with someone who was confirmed or suspected to have Coronavirus/COVID-19? No / Unsure 09/17/2022 8:57 AM CDT documented as of this encounter Functional Status * Are you deaf or do you have serious difficulty hearing? Answer Date of Assessment Author No 10/25/2017 2:00 PM Nessa Padilla ARNP * Are you blind or do you have serious difficulty seeing, even when wearing glasses? Answer Date of Assessment Author No 10/25/2017 2:00 PM DOWEL PIN WORKER Galvan, Am y S, AUTOMOTIVE PARTS COUNTERPERSON * Do you have serious difficulty walking or climbing stairs? (5 years old or older) Answer Date of Assessment Author No 10/25/2017 2:00 PM JOHN Galvan Am y S, AUTOMOTIVE PARTS COUNTERPERSON * Do you have difficulty dressing or bathing? (5 years old or older) Answer Date of Assessment Author No 10/25/2017 2:00 PM DOWEL PIN WORKER Deonna Galvan y S, AUTOMOTIVE PARTS COUNTERPERSON * Because of a physical, mental, or emotional condition, do you have difficulty doing errands alone such as visiting a doctor's office or shopping? (15 years old or older) Answer Date of Assessment Author No 10/25/2017 2:00 PM DOWEL PIN WORKER Deonna Galvan y S, AUTOMOTIVE PARTS COUNTERPERSON documented as of this encounter Mental Status * Because of a physical, mental, or emotional condition, do you have serious difficulty concentrating, remembering, or making decisions? (5 years old or older) Answer Entry Date Author No 10/25/2017 2:00 PM JOHN Galvan Am y S, AUTOMOTIVE PARTS COUNTERPERSON documented in this encounter Plan of Treatment [...] documented as of this encounter Care Teams Equipment Associate Relationship Specialty Start Date End Date Jose Manuel Villegas MD [address] [place] [address] PCP - General Supervisor Intelligence Analyst 05/12/22 11/25/22 Lacey Perdue MD [address] [phone] Referring Physician Infectious Diseases 06/28/18 documented as of this encounter
--- OUTSIDE RECORDS SUMMARY | 2024-11-23 00:24 | XMS_ITS | Encounter Summary ---
Author Organization [employer] Address [address] [place] [address] Care Team Providers Care Log Scaler Name Role Phone Lacey Perdue MD Unavailable [phone] Michell Trevizo MD Primary Care Provider Encounter Details Date Type Department Care Team (Latest Contact Info) Description 12/23/2021 Travel Social History Tobacco Use Types Packs/Day [...] COVID-19? No / Unsure 12/23/2021 11:28 AM FLOOR RUNNER documented as of this encounter Functional Status * Are you deaf or do you have serious difficulty hearing? Answer Date of Assessment Author No 10/25/2017 2:00 PM FLOOR RUNNER Deonna Galvan ARNP * Are you blind or do you have serious difficulty seeing, even when wearing glasses? Answer Date of Assessment Author No 10/25/2017 2:00 PM FLOOR RUNNER Galvan, Am y S, HAND STRAIGHTENER * Do you have serious difficulty walking or climbing stairs? (5 years old or older) Answer Date of Assessment Author No 10/25/2017 2:00 PM FLOOR RUNNER Deonna Galvan, HAND STRAIGHTENER * Do you have difficulty dressing or bathing? (5 years old or older) Answer Date of Assessment Author No 10/25/2017 2:00 PM FLOOR RUNNER Deonna Galvan S, HAND STRAIGHTENER * Because of a physical, mental, or emotional condition, do you have difficulty doing errands alone such as visiting a doctor's office or shopping? (15 years old or older) Answer Date of Assessment Author No 10/25/2017 2:00 PM FLOOR RUNNER Deonna Galvan y S, HAND STRAIGHTENER documented as of this encounter Mental Status * Because of a physical, mental, or emotional condition, do you have serious difficulty concentrating, remembering, or making decisions? (5 years old or older) Answer Entry Date Author No 10/25/2017 2:00 PM FLOOR RUNNER Deonna Galvan, HAND STRAIGHTENER documented in this encounter Plan of Treatment [...] documented for the patient 12/23/2021 12:30 PM FLOOR RUNNER documented as of this encounter Care Teams Log Scaler Relationship Specialty Start Date End Date Michell Trevizo MD [address] [place] [address] PCP - General Internal Medicine 05/29/21 02/25/22 Lacey Perdue MD [address] [phone] Referring Physician Infectious Diseases 06/28/18 documented as of this encounter
--- OUTSIDE RECORDS SUMMARY | 2024-11-23 00:24 | XMS_ITS | Encounter Summary ---
Author Organization [employer] Address [address] [place] [address] Care Team Providers Care Hand Sizer Name Role Phone Lacey Perdue MD Unavailable [phone] Patient, None Per Primary Care Provider Unavaila ble Encounter Details Date Type Department Care Team (Latest Contact Info) Description 02/26/2022 Travel Social History Tobacco Use Types Packs/Day [...] In the last 10 days, have mahnaz hernandez been in contact with someone who was confirmed or suspected to have Coronavirus/COVID-19? No / Unsure 02/26/2022 4:24 PM CDT documented as of this encounter Functional [...] of Assessment Author No 10/25/2017 2:00 PM LITERACY CONSULTANT Deonna Galvan, SENIOR JAVA ARCHITECT * Do you have difficulty dressing or bathing? (5 years old or older) Answer Date of Assessment Author No 10/25/2017 2:00 PM LITERACY CONSULTANT Deonna Galvan, SENIOR JAVA ARCHITECT * Because of a physical, mental, or emotional condition, do you have difficulty doing errands alone such as visiting a doctor's office or shopping? (15 years old or older) Answer Date of Assessment Author No 10/25/2017 2:00 PM LITERACY CONSULTANT Deonna Galvan, SENIOR JAVA ARCHITECT documented as of this encounter Mental Status * Because of a physical, mental, or emotional condition, do you have serious difficulty concentrating, remembering, or making decisions? (5 years old or older) Answer Entry Date Author No 10/25/2017 2:00 PM LITERACY CONSULTANT Deonna Galvan, SENIOR JAVA ARCHITECT documented in this encounter Plan of Treatment [...] documented for the patient 12/23/2021 12:30 PM LITERACY CONSULTANT documented as of this encounter Care Teams Hand Sizer Relationship Specialty Start Date End Date Patient, None Per PCP - General 02/26/22 05/11/22 Lacey Perdue MD [address] [phone] Referring Physician Infectious Diseases 06/28/18 documented as of this encounter
--- OUTSIDE RECORDS SUMMARY | 2024-11-23 00:24 | XMS_ITS | Encounter Summary ---
Author Organization [employer] Address [address] [place] [address] Care Team Providers Care Chaplain Resident Name Role Phone Lacey Perdue MD Unavailable [phone] Patient, None Per Primary Care Provider Unavaila ble Reason for Referral * Diagnostic Radiology (Routine) - Closed Specialty Diagnoses / Procedures Referred By Vickiac tripp Referred To Contact Radiology Diagnoses RUQ abdominal pain Procedures US Abdomen Complete Yessenia Loyd MD [address] [place] [address] [place] [address] Phone: tel: fax: Referral ID Status Reason Start Date Expiration Date Visits Re quested Visits Authorized [id number] Closed 03/04/2023 09/04/2024 1 1 Reason for Visit * Diagnostic Radiology (Routine) - Closed Specialty Diagnoses / Procedures Referred By Celine almaguer Referred To Contact Radiology Diagnoses RUQ abdominal pain Procedures US Abdomen Complete Yessenia Loyd MD [address] [place] [address] [place] [address] Phone: tel: fax: Referral ID Status Reason Start Date Expiration Date Visits Re quested Visits Authorized [id number] Closed 03/04/2023 09/04/2024 1 1 Encounter Details Date Type Department Care Team (Latest Contact Info) Description 03/22/2023 7:13 AM CDT - 03/22/2023 11:59 PM CDT Hospital Encounter [facility] [address] [place] [address] Yessenia Loyd MD [address] [place] [address] RUQ abdominal pain Discharge Disposition: Home - Discharge to Home or Self Care Social History Tobacco [...] 10/25/2017 2:00 PM Deonna Padilla, GEORGE * Are you blind or do you have serious difficulty seeing, even when wearing glasses? Answer Date of Assessment Author No 10/25/2017 2:00 PM Deonna Padilla, TILTING HEAD BAND SAWYER * Do you have serious difficulty walking or climbing stairs? (5 years old or older) Answer Date of Assessment Author No 10/25/2017 2:00 PM Deonna Padilla, TILTING HEAD BAND SAWYER * Do you have difficulty dressing or bathing? (5 years old or older) Answer Date of Assessment Author No 10/25/2017 2:00 PM Deonna Padilla, TILTING HEAD BAND SAWYER * Because of a physical, mental, or [...] Deonna Padilla ARNP documented in this encounter Medications at Time of Discharge albuterol 108 (90 Base) MCG/ACT inhaler Inhale 2 (two) puffs into the lungs every 4 (four) hours as needed for Wheezing. 1 each 1 11/19/2021 Ascorbic Acid (VITAMIN C) 500 MG tablet Take 500 mg by mouth daily. aspirin 325 MG tablet Take 325 mg by mouth. baclofen (LIORESAL) 10 MG tablet TAKE ONE TABLET BY MOUTH THREE TIMES DAILY NEEDED 30 tablet 08/14/2022 diclofenac sodium (VOLTAREN) 50 MG EC tablet Take 1 (one) tablet by mouth 2 (two) times daily. 60 tablet 5 05/12/2022 docusate sodium (COLACE) 100 MG capsule Take 1 (one) capsule by mouth 2 (two) times daily as needed for Constipation. 60 capsule 1 09/17/2022 ferrous sulfate 324 (65 FE) MG EC tablet Take 324 mg by mouth 3 (three) times daily with meals. Multiple Vitamins-Minerals (ONE DAILY MULTIVITAMIN ADULT PO) Take by mouth. Probiotic Product (SOLUBLE FIBER/PROBIOTICS PO) Take 1 tablet by mouth daily. vitamin D (CHOLECALCIFEROL) 1000 units tablet Take 1,000 Units by mouth daily. zinc sulfate (ZINCATE) 220 (50 Zn) MG capsule Take 220 mg by mouth daily. documented as of this encounter Plan of Treatment Not on file documented as of this encounter Goals Goal Patient Goal Type Associated Problems Recent Progress Patient-Stated? Author Blood Pressure < 140/90 Blood Pressure 134/86(2022 2:25 PM CDT) No Leonard Jasso APRN documented as of this encounter Procedures Procedure Name Priority Date/Time Associated Diagnosis Comments US ABDOMEN COMPLETE Routine 03/22/2023 7 :40 AM CDT RUQ abdominal pain documented in this encounter Results * US Abdomen Complete (03/22/2023 7:40 AM CDT) Anatomical Region Laterality Modality Abdomen Ultrasound 03/22/2023 7:18 AM CDT Impressions 03/22/2023 7:57 AM CDT Unremarkable sonographic evaluation of the abdomen. THIS IS AN ELECTRONICALLY VERIFIED FINAL REPORT 03/22/2023 7:54 AM - Electronically signed by Kerwin Malik M.D. Narrative 03/22/2023 7:57 AM CDT [address] [place] [address] DIAGNOSTIC IMAGING Name: EDILBERTO DURAND ??Ordering Phys: YESSENIA LOYD Date of : 1955 ?Gender: M ??Accession Number: [id number] EXAM DESCRIPTION: US ABDOMEN COMPLETE REASON FOR STUDY: Episodic right-sided abdominal pain with nausea and vomiting for 1 year. TECHNIQUE: Grayscale images acquired of the abdomen and recorded on PACS. COMPARISON: CT abdomen and pelvis dated 05/12/2022 FINDINGS: PANCREAS: Poorly evaluated due to overlying bowel gas. LIVER: Normal in size, echogenicity, and appearance measuring 15.6 cm in diameter. ??No discrete hepatic mass. GALLBLADDER: The gallbladder appears unremarkable. ??No cholelithiasis. ??No gallbladder wall thickening or pericholecystic fluid. ??No positive sonographic Barrios's sign reported. BILIARY: There is no intrahepatic or extrahepatic biliary ductal dilatation. ??Common bile duct measures 0.4 cm. INFERIOR VENA CAVA: Identified, grossly normal, and patent. AORTA: Identified, grossly normal, without aneurysm. RIGHT KIDNEY: Normal size. ??Normal echogenicity. ??No solid mass or cyst. ??No hydronephrosis. ??Measures 10.9 cm in length. LEFT KIDNEY: ??Normal size. ??Normal echogenicity. ??No solid mass or cyst. ??No hydronephrosis. ??Measures 12.6 cm in length. SPLEEN: Normal size. ??No solid masses. PERITONEAL AND PLEURAL SPACES: No ascites or effusions Procedure Note Kerwin Malik MD - 03/22/[address] [place] [address] DIAGNOSTIC IMAGING Name: EDILBERTO DURAND Ordering Phys: YESSENIA LOYD Date of : 1955 Gender: M Accession Number: [id number] EXAM DESCRIPTION: US ABDOMEN COMPLETE REASON FOR STUDY: Episodic right-sided abdominal pain with nausea and vomiting for 1 year. TECHNIQUE: Grayscale images acquired of the abdomen and recorded on PACS. COMPARISON: CT abdomen and pelvis dated 05/12/2022 FINDINGS: PANCREAS: Poorly evaluated due to overlying bowel gas. LIVER: Normal in size, echogenicity, and appearance measuring 15.6 cm in diameter. No discrete hepatic mass. GALLBLADDER: The gallbladder appears unremarkable. No cholelithiasis. No gallbladder wall thickening or pericholecystic fluid. No positive sonographic Barrios's sign reported. BILIARY: There is no intrahepatic or extrahepatic biliary ductal dilatation. Common bile duct measures 0.4 cm. INFERIOR VENA CAVA: Identified, grossly normal, and patent. AORTA: Identified, grossly normal, without aneurysm. RIGHT KIDNEY: Normal size. Normal echogenicity. No solid mass or cyst. No hydronephrosis. Measures 10.9 cm in length. LEFT KIDNEY: Normal size. Normal echogenicity. No solid mass or cyst. No hydronephrosis. Measures 12.6 cm in length. SPLEEN: Normal size. No solid masses. PERITONEAL AND PLEURAL SPACES: No ascites or effusions IMPRESSION: Unremarkable sonographic evaluation of the abdomen. THIS IS AN ELECTRONICALLY VERIFIED FINAL REPORT 03/22/2023 7:54 AM - Electronically signed by Kerwin Malik M.D. Yessenia Loyd MD [facility] US ORDERABLES Final Result documented in this encounter Visit Diagnoses Diagnosis RUQ abdominal pain Abdominal pain, right upper quadrant documented in this encounter Additional Health Concerns Assessment Noted Time A fall risk assessment has been complete d for the patient 09/17/2022 9:09 AM CDT A Body Mass Index follow-up plan has been documented for the patient 09/17/2022 9:29 AM CDT documented as of this encounter Care Teams Chaplain Resident Relationship Specialty Start Date End Date Patient, None Per PCP - General 03/04/23 Lacey Perdue MD [address] [phone] Referring Physician Infectious Diseases 06/28/18 documented as of this encounter
--- OUTSIDE RECORDS SUMMARY | 2024-11-23 00:24 | XMS_ITS | Encounter Summary ---
Author Organization [employer] Address [address] [place] [address] Care Team Providers Care Oceanographic Meteorologist Name Role Phone Lacey Perdue MD Unavailable Jose Manuel Villegas MD Primary Care Provider [phone] Reason for Visit * Reason Onset Date Comments Appointment 08/14/2022 Encounter Details Date Type Department Care Team (Late st Contact Info) Description 08/14/2022 Telephone [facility] [address] [place] [address] Penny Carey, RN [address] [place] [address] Appointment Social History Tobacco Use Types Packs/Day Years Used Date Smoking Tobacco: Never Smokeless Tobacco: Never Alcohol Use Standard Drinks/Week Comments No 0 (1 standard drink = 0.6 oz pur e alcohol) PHQ-2 Answer Date Recorded PHQ-2 Total Score 0 06/09/2022 Sex and Gender Information Value Date Recorded Sex Assigned at Not on file Legal Sex Male 10:58 AM CDT Gender Identity Not on file Sexual Orientation Not on file Occupation Industry Job Start Date Job End Date Retired Not on file Not on file Not on file COVID-19 Exposure Response Date Recorded In the last 10 days, have yo u been in contact with someone who was confirmed or suspected to have Coronavirus/COVID-19? No / Unsure 08/10/2022 6:24 PM CDT documented as of this encounter Functional Status * Are you deaf or do you have serious difficulty hearing? Answer Date of Assessment Author No 10/25/2017 2:00 PM BINDERY WORKER Galvan, Am y S, FARMWORKER POULTRY * Are you blind or do you have serious difficulty seeing, even when wearing glasses? Answer Date of Assessment Author No 10/25/2017 2:00 PM BINDERY WORKER Galvan, Am y S, FARMWORKER POULTRY * Do you have serious difficulty walking or climbing stairs? (5 years old or older) Answer Date of Assessment Author No 10/25/2017 2:00 PM BINDERY WORKER Galvan, Am y S, FARMWORKER POULTRY * Do you have difficulty dressing or bathing? (5 years old or older) Answer Date of Assessment Author No 10/25/2017 2:00 PM BINDERY WORKER Galvan, Am y S, FARMWORKER POULTRY * Because of a physical, mental, or emotional condition, do you have difficulty doing errands alone such as visiting a doctor's office or shopping? (15 years old or older) Answer Date of Assessment Author No 10/25/2017 2:00 PM BINDERY WORKER Galvan, Am y S, FARMWORKER POULTRY documented as of this encounter Mental Status * Because of a physical, mental, or emotional condition, do you have serious difficulty concentrating, remembering, or making decisions? (5 years old or older) Answer Entry Date Author No 10/25/2017 2:00 PM JOHN Galvan, Am y S, FARMWORKER POULTRY documented in this encounter Miscellaneous Notes * Telephone Encounter - Penny Carey RN - 08/28/2022 9:42 AM CDT Will send letter asking to make an appt and to call the office * Telephone Encounter - Penny Carey RN - 08/28/2022 9:41 AM CDT Tried calling the pt again. Phone has been disconnected. * Telephone Encounter - Penny Carey RN - 08/19/2022 11:05 AM CDT lvm * Telephone Encounter - Penny Carey RN - 08/14/2022 12:15 PM CDT Pt is needing to be seen next week per Dr. Villegas do to some of his medications. lvm documented in this encounter Plan of Treatment [...] has been complete d for the patient 05/12/2022 9:40 AM CDT A Body Mass Index follow-up plan has been documented for the patient 05/12/2022 10:14 AM CDT documented as of this encounter Care Teams Oceanographic Meteorologist Relationship Specialty Start Date End Date Jose Manuel Villegas MD [address] [place] [address] PCP - General In Shop Service Technician 05/12/22 11/25/22 Lacey Perdue MD [address] [phone] Referring Physician Infectious Diseases 06/28/18 documented as of this encounter
--- OUTSIDE RECORDS SUMMARY | 2024-11-23 00:24 | XMS_ITS | Encounter Summary ---
Author Organization [employer] Address [address] [place] [address] Care Team Providers Care Finished Hardware Erector Name Role Phone Lacey Perdue MD Unavailable Jose Manuel Villegas MD Primary Care Provider [phone] Reason for Visit * Reason Comments Medication Refill Encounter Details Date Type Department Care Team (Late st Contact Info) Description 07/13/2022 Refill [facility] [address] [place] [phone] Jose Manuel Villegas MD [address] [place] [address] Social History Tobacco Use Types Packs/Day [...] Author No 10/25/2017 2:00 PM Deonna Padilla, CARTON FORMING MACHINE HELPER * Do you have serious difficulty walking or climbing stairs? (5 years old or older) Answer Date of Assessment Author No 10/25/2017 2:00 PM Deonna Padilla, CARTON FORMING MACHINE HELPER * Do you have difficulty dressing or bathing? (5 years old or older) Answer Date of Assessment Author No 10/25/2017 2:00 PM Deonna Padilla, CARTON FORMING MACHINE HELPER * Because of a physical, mental, or [...] documented as of this encounter Care Teams Finished Hardware Erector Relationship Specialty Start Date End Date Jose Manuel Villegas MD [address] [place] [address] PCP - General Consumer Affairs Specialist 05/12/22 11/25/22 Lacey Perdue MD [address] [phone] Referring Physician Infectious Diseases 06/28/18 documented as of this encounter
--- OUTSIDE RECORDS SUMMARY | 2024-11-23 00:24 | XMS_ITS | Encounter Summary ---
Author Organization Patient Feed Address [address] [place] [address] Care Team Providers Care Boiler Helper Name Role Phone Lacey Perdue MD Unavailable [phone] Patient, None Per Primary Care Provider Unavaila ble Reason for Visit * Reason Comments Abdominal Pain Pt presents with int ermittent RLQ abdominal pain that started 2 days ago. States it is a burning pain. States he has a history of hepatic steatosis. Pt is worried this could be appendicitis. Denies any nausea, vomiting, or diarrhea. Encounter Details Date Type Department Care Team (Late st Contact Info) Description 02/26/2022 4:14 PM CDT - 02/26/2022 7:40 PM CDT [place] [facility] [address] [place] [id number] Rickey Bailey F, DO [address] [address] Epiploic appendagitis (Primary Dx) Discharge Disposition: Home - Discharge to Home [...] PM CDT documented as of this encounter Last Filed Vital Signs Vital Sign Reading Time Taken Comments Blood Pressure 134/89 02/26/2022 7:00 PM CDT Pulse 83 02/26/2022 7:00 PM CDT Temperature 36.5 ??C (97.7 ??F) 02/26/2022 7:00 PM CD T Respiratory Rate 20 02/26/2022 7:00 PM CDT Oxygen Saturation 95% 02/26/2022 7:00 PM CDT Inhaled Oxygen Concentration - - Weight 90.7 kg (200 lb) 02/26/2022 4:23 PM CDT Height 180.3 cm (5' 11 ) 02/26/2022 4:23 PM CDT Body Mass Index 27.89 02/26/2022 4:23 PM CDT documented in this encounter Functional Status * Are you [...] Deonna Padilla ARNP * Do you have difficulty dressing or bathing? (5 years old or older) Answer Date of Assessment Author No 10/25/2017 2:00 PM Denona Padilla ARNP * Because of a physical, [...] Entry Date Author No 10/25/2017 2:00 PM DUMP MOTORMAN Deonna Galvan ARNP documented in this encounter Discharge Instructions * Discharge Instructions* Courtney Yuan RN - 02/26/2022 7:36 PM CDT Abdominal pain documented in this encounter Medications at Time of Discharge albuterol 108 (90 Base) MCG/ACT inhaler Inhale 2 (two) puffs into the lungs every 4 (four) hours as needed for Wheezing. 1 each 1 11/19/2021 Ascorbic Acid (VITAMIN C) 500 MG tablet Take 500 mg by mouth daily. aspirin 325 MG tablet Take 325 mg by mouth. Multiple Vitamins-Minerals (ONE DAILY MULTIVITAMIN ADULT PO) Take by mouth. Probiotic Product (SOLUBLE FIBER/PROBIOTICS PO) Take 1 tablet by mouth daily. vitamin D (CHOLECALCIFEROL) 1000 units tablet Take 1,000 Units by mouth daily. zinc sulfate (ZINCATE) 220 (50 Zn) MG capsule Take 220 mg by mouth daily. amitriptyline (ELAVIL) 150 MG tabletIndications:C ongestion of nasal sinus,Dyspnea, unspecified type,Encounter for long-term current use of medication,Chronic bilateral low back pain with left-sided sciatica,Spinal stenosis, unspecified spinal region,Hyperlipidem ia, unspecified hyperlipidemia type,COVID-19,[place] liver enzymes,Hepatomegal y Take 1 (one) tablet by mouth daily. 90 tablet 3 12/23/2021 05/12/20 22 baclofen (LIORESAL) 10 MG tablet TAKE ONE TABLET BY MOUTH THREE TIMES A DAY IF NEEDED FOR MUSCLE SPASMS 90 tablet 02/11/2022 05/12/20 22 diclofenac sodium (VOLTAREN) 50 MG EC tablet Take 1 tablet by mouth 2 (two) times daily. 60 tablet 5 08/27/2021 05/12/20 22 docusate sodium (COLACE) 100 MG capsule TAKE ONE CAPSULE BY MOUTH TWICE A DAY NEEDED FOR CONSTIPATION--TA KE WHILE ON NARCOTIC PAIN MEDICATIONS 30 capsule 11/20/2021 05/12/20 22 NARCAN 4 MG/0.1ML LIQD nasal liquid USE DIRECTED. 2 each 1 01/15/2020 09/17/20 omeprazole 20 MG tablet Take 2 tablets by mouth every morning before breakfast. 60 tablet 5 05/29/2021 05/12/20 22 oxyCODONE-acetamino phen (PERCOCET) 10-325 MG per tablet TAKE ONE TABLET EVERY SIX HOURS IF NEEDED FOR PAIN. 120 tablet 02/11/2022 05/12/20 22 tamsulosin HCl (FLOMAX) 0.4 MG capsule Take 1 (one) capsule by mouth daily. 30 capsule 3 10/14/2021 09/17/20 22 documented as of this encounter ED Notes * Rickey Bailey, DO - 02/26/2022 4:53 PM CDT Subjective Chief Complaint Patient presents with ??? Abdominal Pain Pt presents with intermittent RLQ abdominal pain that started 2 days ago. States it is a burning pain. States he has a history of hepatic steatosis. Pt is worried this could be appendicitis. Denies any nausea, vomiting, or diarrhea. HPI This is a pleasant 66-year-old gentleman comes in for right-sided abdominal pain for 2 days. Patient has had right-sided abdominal pain for the last 2 days. It started when he went to sleep 2 nights ago. It persisted and has been intermittent. He states he usually sleeps on his right side but now has sleep on his left side because of pain. Today he was driving and had increasing pain in the right side. He is concerned about appendicitis. Patient states he had a kidney stone on the left years ago. He has chronic shoulder pain and injuries and arthritis, he has lumbar disc disease. Patient Active Problem List Diagnosis ??? Acute adjustment disorder with depressed mood ??? Chronic bilateral low back pain with sciatica ??? Rotator cuff injury ??? Substance abuse (HCC) ??? Migraines ??? Chronic back pain greater than 3 months duration ??? Arthritis ??? Staphylococcal arthritis of right ankle (HCC) ??? Cellulitis of axilla, right ??? Avascular necrosis of bone (HCC) ??? Spinal stenosis ??? Chronic pain ??? Closed fracture of transverse process of lumbar vertebra with routine healing ??? Femoral acetabular impingement ??? 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 History of repair of left rotator cuff ??? Hyperlipidemia ??? FCI current use of opiate analgesic ??? Osteoarthritis of lumbar spine ??? Pain of left lower extremity ??? Sciatica ??? Sensory hearing loss, bilateral ??? Hepatic steatosis Past Medical History: Diagnosis Date ??? Arthritis ??? Back injury ??? Chronic back pain greater than 3 months duration ??? GERD (gastroesophageal reflux disease) ??? Hepatic steatosis 07/28/2021 ??? Migraines ??? Osteomyelitis of ankle or foot, acute, right (HCC) 2018 Stepped on nail ??? Shoulder injury ??? Substance abuse (HCC) cocaine, crystal meth nothing since 1996 ??? Wrist disorder R frzn wrist, 2 screws Past Surgical History: Procedure Laterality Date ??? COLONOSCOPY W/ POLYPECTOMY 12/07/2018 ??? ELBOW SURGERY Left metal plate from elbow to forearm ??? ESOPHAGOGASTRODUODENOSCOPY 12/18/2020 ??? FRACTURE SURGERY Left no sx ??? INCISION AND DRAINAGE FOOT Right Infection right foot and ankle ??? JOINT REPLACEMENT Left Left hip replacement ??? NASAL SEPTOPLASTY W/ TURBINOPLASTY 08/29/2021 Dr. Wolff ??? ROTATOR CUFF REPAIR Left ??? SHOULDER SURGERY Right repair tendon ??? SPINE SURGERY 3 4 5 lumbar, pinched nerves ??? US GUIDED NEEDLE PLACEMENT 05/15/2021 Family History Problem Relation Age of Onset ??? Dementia Mother Social History Tobacco Use ??? Smoking status: Never Smoker ??? Smokeless tobacco: Never Used Vaping Use ??? Vaping Use: Never used Substance Use Topics ??? Alcohol use: No ??? Drug use: Yes Types: Hydrocodone Comment: Arthritis pain No Known Allergies Review of Systems Patient has no complaints about the head neck. Denies any chest pain cough or congestion. He has had no fever chills or sweats. Patient has urinary frequency and takes Flomax. He has no nocturia. He said no change in bowel habits as far as constipation diarrhea or blood in his stools. Last bowel movement was today. He denies any gross blood in his urine. Pain is mostly right-sided. Some burning pain in the right mid abdominal area without any radiationof the groin. Has had no swelling in the groin. Current Immunization Status per Nursing Most Recent Immunizations Administered Date(s) Administered ??? Influenza (FLUAD) aIIV3 11/03/2019 ??? Influenza H1N1 preservative free 08/11/2011 ??? Influenza, inactivated, quadrivalent, ALL AGES 6 months and older, single dose syringe/vial 08/23/2020 ??? Influenza, unspecified formulation 08/13/2016 ??? Pneumococcal Polysaccharide-23 (Pneumovax 23) PPSV23 01/21/2018 ??? Tdap 04/16/2017 ??? Tetanus and Diphtheria (Tenivac) Td 05/15/2010 Objective BP (!) 174/94 Pulse 89 Temp 36.7 ??C (98 ??F) (Temporal) Resp 20 Ht 1.803 m (5' 11 ) Wt 90.7 kg (200 lb) SpO2 97% BMI 27.89 kg/m?? GCS Assessment: Physical Exam Constitutional: General: He is not in acute distress. Appearance: He is well-developed and normal weight. He is not ill-appearing or toxic-appearing. HENT: Mouth/Throat: Mouth: Mucous membranes are moist. Eyes: General: No scleral icterus. Cardiovascular: Rate and Rhythm: Normal rate and regular rhythm. Heart sounds: Normal heart sounds. No murmur heard. Pulmonary: Effort: Pulmonary effort is normal. Breath sounds: Normal breath sounds. No wheezing or rales. Chest: Chest wall: No tenderness. Abdominal: General: Abdomen is flat. Bowel sounds are normal. There is no distension. Palpations: Abdomen is soft. Tenderness: There is no abdominal tenderness. Comments: Abdomen shows right mid abdominal tenderness without any guarding or rebound. There is nocostovertebral or flank tenderness. Liver edge is not felt. No obvious hepatomegaly. There is no splenomegaly. There is no localized tenderness of the right lower quadrant at McBurney's point. There are no hernias. Skin: General: Skin is warm and dry. Neurological: General: No focal deficit present. Mental Status: He is alert and oriented to person, place, and time. 02/26/2022 ED Lab Results CBC AND DIFFERENTIAL COMPREHENSIVE METABOLIC PANEL LIPASE URINALYSIS WITH REFLEX TESTING Imaging / Studies reviewed: CT scan shows no evidence of appendicitis. It does show epiploic appendagitis of the descending colon. Assessment & Plan Procedures Labs returned fairly unremarkable. He does have mildly elevated AST and ALT from known hepatic steatosis. Lipase is normal. White count is normal. He has no gross or microscopic hematuria which points against a kidney stone. Will get a CT scan with contrast for possible appendicitis. 7:10 PM: CT scan shows epiploic appendagitis. Explained to the patient this is benign and he will have pain the next several days. This is nonsurgical. Plan: New Prescriptions No Prescriptions at Discharge. Will be dismissed. He will follow up with his primary care provider as needed.apparently he has been dismissed from the [facility] practice and his recent provider. He will need to find someone else but he can return to the emergency room anytime if his pain gets worse. Disposition: Data Unavailable dismiss MDM Additional Documentation Rickey Bailey DO 02/26/221910 documented in this encounter Plan of Treatment Not on file documented as of this encounter Goals Goal Patient Goal Type Associated Problems Recent Progress Patient-Stated? Author Blood Pressure < 140/90 Blood Pressure 134/86(2022 2:25 PM CDT) No Leonard Jasso APRN documented as of this encounter Procedures Procedure Name Priority Date/Time Associated Diagnosis Comments CT ABDOMEN AND PELVIS W CONTRAST STAT 02/26/2022 6:13 PM CDT CBC AND DIFFERENTIAL STAT 02/26/2022 5:00 PM CDT LIPASE STAT 02/26/2022 5:00 PM CDT COMPREHENSIVE METABOLIC PANEL STAT 02/26/2022 5:00 PM CDT URINALYSIS WITH REFLEX MICROSCOPIC TESTING STAT 02/26/2022 4:55 PM CDT documented in this encounter Results * CT Abdomen and Pelvis w Contrast (02/26/2022 6:13 PM CDT) Anatomical Region Laterality Modality Abdomen, Pelvis, Hip Computed To mography 02/26/2022 6:04 PM CDT Impressions 02/27/2022 1:52 AM CDT 1. Small focus of epiploic appendagitis associated with the descending colon. 2. Remote calcified granulomatous disease. 3. Hepatic steatosis. 4. Study does not provide etiology for right lower quadrant pain. Specifically, normal appendix. 5. Additional chronic and incidental findings as described. THIS DOCUMENT HAS BEEN ELECTRONICALLY SIGNED BY KULWANT MARI MD ON 02/26/2022 ??18:58:56 Images and report reviewed. ??Final interpretation concurs with preliminary report. DISCREPANCY: None. THIS IS AN ELECTRONICALLY VERIFIED FINAL REPORT 02/26/2022 7:00 PM - Electronically signed by Jesús Clark M.D. Narrative 02/27/2022 1:52 AM CDT [address] [place] [address] DIAGNOSTIC IMAGING Name: EDILBERTO HAWLEY ??Ordering Phys: RICKEY BAILEY Date of : 1955 ?Gender: M ??Accession Number: [id number] PROCEDURE: Exam: CT Abdomen And Pelvis With Contrast Exam date and time: 02/26/2022 6:04 PM Age: 66 years old Clinical indication: Abdominal pain; Additional info: Right lower quad abdominal pain for 2 days, burning feeling, no nausea, vomiting, diarrhea, no surgeries to abdominal area, no cancer, nonsmoker (darrick 2022-02-26 18:16:10 cdt) TECHNIQUE: Imaging protocol: Computed tomography of the abdomen and pelvis with contrast. Total images: 438 COMPARISON: [facility] 07/15/2021 7:50 AM FINDINGS: Lungs: Punctate calcified granuloma both lung bases. Lung bases are otherwise clear. Heart: Normal heart size. Prominent coronary artery calcification along the LAD. Liver: Decreased hepatic attenuation in keeping with hepatic steatosis. No liver mass. Scattered calcified hepatic granuloma. Gallbladder and bile ducts: Normal. No calcified stones. No ductal dilation. Pancreas: Normal. No ductal dilation. Spleen: Nonenlarged spleen with calcified granuloma. Adrenal glands: Normal. No mass. Kidneys and ureters: Minor bilateral perinephric fat stranding, presumed chronic. Several tiny bilateral renal cortical hypodensities, too small to characterize but statistically cysts. Stomach and bowel: Incompletely distended stomach. Unremarkable small bowel. Stool in the distal ileum in keeping with chronic stasis/delayed fecal transit. The colon appears within normal limits with the sigmoid and descending colon mostly collapsed. Small focus of epiploic appendagitis anterior to the descending colon, axial image 131 series 3. Appendix: Normal appendix. Intraperitoneal space: Unremarkable. No free air. No significant fluid collection. Arteries: Mildly atherosclerotic nonaneurysmal aorta. Veins: Incidental pelvic phleboliths. Lymph nodes: Calcified bilateral hilar lymph nodes. Urinary bladder: Nonspecific mild bladder wall thickening. Reproductive: Nonenlarged prostate. Bones/joints: Mild rotary lumbar dextrocurvature. Status post left total hip arthroplasty. Mild degenerative change of the right hip and bilateral SI joints. Moderate degenerative change of the lumbar spine greatest at L5-S1. No concerning bone lesions. Soft tissues: Small fat containing umbilical hernia. Procedure Note Jesús Clark MD - 02/27/[address] [place] [id number] DIAGNOSTIC IMAGING Name: EDILBERTO HAWLEY Ordering Phys: LEO RICKEY Adrian Date of : 1955 Gender: M Accession Number: [id number] PROCEDURE: Exam: CT Abdomen And Pelvis With Contrast Exam date and time: 02/26/2022 6:04 PM Age: 66 years old Clinical indication: Abdominal pain; Additional info: Right lower quad abdominal pain for 2 days, burning feeling, no nausea, vomiting, diarrhea, no surgeries to abdominal area, no cancer, nonsmoker (darrick, 2022-02-26 18:16:10 cdt) TECHNIQUE: Imaging protocol: Computed tomography of the abdomen and pelvis with contrast. Total images: 438 COMPARISON: [facility] 07/15/2021 7:50 AM FINDINGS: Lungs: Punctate calcified granuloma both lung bases. Lung bases are otherwise clear. Heart: Normal heart size. Prominent coronary artery calcification along the LAD. Liver: Decreased hepatic attenuation in keeping with hepatic steatosis. No liver mass. Scattered calcified hepatic granuloma. Gallbladder and bile ducts: Normal. No calcified stones. No ductal dilation. Pancreas: Normal. No ductal dilation. Spleen: Nonenlarged spleen with calcified granuloma. Adrenal glands: Normal. No mass. Kidneys and ureters: Minor bilateral perinephric fat stranding, presumed chronic. Several tiny bilateral renal cortical hypodensities, too small to characterize but statistically cysts. Stomach and bowel: Incompletely distended stomach. Unremarkable small bowel. Stool in the distal ileum in keeping with chronic stasis/delayed fecal transit. The colon appears within normal limits with the sigmoid and descending colon mostly collapsed. Small focus of epiploic appendagitis anterior to the descending colon, axial image 131 series 3. Appendix: Normal appendix. Intraperitoneal space: Unremarkable. No free air. No significant fluid collection. Arteries: Mildly atherosclerotic nonaneurysmal aorta. Veins: Incidental pelvic phleboliths. Lymph nodes: Calcified bilateral hilar lymph nodes. Urinary bladder: Nonspecific mild bladder wall thickening. Reproductive: Nonenlarged prostate. Bones/joints: Mild rotary lumbar dextrocurvature. Status post left total hip arthroplasty. Mild degenerative change of the right hip and bilateral SI joints. Moderate degenerative change of the lumbar spine greatest at L5-S1. No concerning bone lesions. Soft tissues: Small fat containing umbilical hernia. IMPRESSION: 1. Small focus of epiploic appendagitis associated with the descending colon. 2. Remote calcified granulomatous disease. 3. Hepatic steatosis. 4. Study does not provide etiology for right lower quadrant pain. Specifically, normal appendix. 5. Additional chronic and incidental findings as described. THIS DOCUMENT HAS BEEN ELECTRONICALLY SIGNED BY KULWANT MARI MD ON 02/26/2022 18:58:56 Images and report reviewed. Final interpretation concurs with preliminary report. DISCREPANCY: None. THIS IS AN ELECTRONICALLY VERIFIED FINAL REPORT 02/26/2022 7:00 PM - Electronically signed by Jesús Clark M.D. Rickey Bailey DO IMG CT ORDERABLES Final Res ult * Lipase (02/26/2022 5:00 PM CDT) Lipase 69 65 - 230 U/L 02/26/2022 5:35 PM CDT [facility] Serum 02/26/2022 5:00 PM CDT 02/26/2022 5:05 PM CDT Edward F Leo DO LAB BLOOD ORDERABLES Final Result [facility] [address] [place], [place] [phone] [facility] [address] [place] [address] * (ABNORMAL) Comprehensive metabolic panel (02/26/2022 5:00 PM T) Sodium 142 136 - 145 mmol/L 02/26/2022 5:35 PM [facility] Potassium 4.6 3.5 - 5.1 mmol/L 02/26/2022 5:35 PM [facility] Chloride 104 98 - 107 mmol/L 02/26/2022 5:35 PM [facility] CO2 30 21 - 32 mmol/L 02/26/2022 5:35 PM [facility] Glucose 121(H) 74 - 106 mg/dL 02/26/2022 5:35 PM [facility] BUN 10 7.0 - 18.0 mg/dL 02/26/2022 5:35 PM [facility] Creatinine 0.94 0.70 - 1.30 mg/dL 02/26/2022 5:35 PM [facility] Calcium 9.7 8.5 - 10.1 mg/dL 02/26/2022 5:35 PM [facility] Total Protein 8.1 6.4 - 8.2 g/dL 02/26/2022 5:35 PM [facility] Albumin 4.3 3.4 - 5.0 g/dL 02/26/2022 5:35 PM [facility] Bilirubin Total 0.8 0.2 - 1.0 mg/dL 02/26/2022 5:35 PM [facility] Alkaline Phosphatase 84 56 - 119 U/L 02/26/2022 5:35 PM [facility] AST 74(H) 15 - 37 U/L 02/26/2022 5:35 PM [facility] ALT 125(H) 16 - 63 U/L 02/26/2022 5:35 PM [facility] Anion Gap 8 8 - 16 mmol/L 02/26/2022 5:35 PM [facility] BUN/Creatinine Ratio 10.6 02/26/2022 5:35 PM [facility] Osmolality Calculated 294 275 - 295 mosm/kg 02/26/2022 5:35 PM [facility] Globulin 3.8(H) 2.3 - 3.4 g/dL 02/26/2022 5:35 PM [facility] A/G Ratio 1.1 02/26/2022 5:35 PM [facility] Creatinine Based eGFR 83 mL/min/[1. 73_m2] 02/26/2022 5:35 PM [facility] Comment:GFR 60-90 Mild decre ased GFR. Serum 02/26/2022 5:00 PM CDT 02/26/2022 5:05 PM T Rickey Bailey DO LAB BLOOD ORDERABLES Final Result [facility] [address] [place], [place] [phone] [facility] [address] [place] [address] * CBC and differential (02/26/2022 5:00 PM T) WBC 9.14 4.00 - 11.00 10*3/uL 02/26/2022 5:21 PM [facility] RBC 5.60 4.50 - 6.50 10*6/uL 02/26/2022 5:21 PM [facility] HGB 17.8 13.8 - 18.0 g/dL 02/26/2022 5:21 PM [facility] HCT 51.0 40.0 - 54.0 % 02/26/2022 5:21 PM [facility] MCV 91.1 76 - 99 fL 02/26/2022 5:21 PM [facility] MCH 31.8 27.0 - 32.0 pg 02/26/2022 5:21 PM [facility] MCHC 34.9 30.0 - 35.0 g/dL 02/26/2022 5:21 PM [facility] Platelets 200 135 - 470 10*3/uL 02/26/2022 5:21 PM [facility] RDW-CV 11.7 11.0 - 17.0 % 02/26/2022 5:21 PM [facility] MPV 10.3 8.0 - 12.5 fL 02/26/2022 5:21 PM [facility] Differential Type AUTOMATED DIFFERENTIAL 02/26/2022 5: PM [facility] Neutrophil % 62.2 45.0 - 75.0 % 02/26/2022 5:21 PM [facility] Lymphocytes % 26.4 20.0 - 45.0 % 02/26/2022 5:21 PM [facility] Monocyte % 8.8 0.0 - 10.0 % 02/26/2022 5:21 PM [facility] Eosinophils Relative % 1.8 0.0 - 5.0 % 02/26/2022 5: PM [facility] Basophils % 0.5 0.0 - 2.0 % 02/26/2022 5:21 PM [facility] Immature Granulocytes% 0.3 0.0 - 1.6 % 02/26/2022 5:21 PM [facility] Neutrophils Absolute 5.69 2.00 - 7.90 10*3/uL 02/26/2022 5:21 PM [facility] Lymphocytes Absolute 2.41 1.00 - 4.00 10*3/uL 02/26/2022 5:21 PM [facility] Monos Absolute 0.80 0.00 - 0.80 10*3/uL 02/26/2022 5:21 PM [facility] Eosinophils Absolute Count 0.16 0.00 - 0.40 10*3/uL 02/26/2022 5:21 PM [facility] Basophils Absolute 0.05 0.00 - 0.10 10*3/uL 02/26/2022 5:21 PM [facility] Immature Granulocytes Absolute 0.03 0.0 - 0.20 10*3/uL 02/26/2022 5:21 PM [facility] Serum BLOOD SPECIMEN / Unknown 02/26/2022 5:00 PM CDT 02/26/2022 5:05 PM CDT Rickey Bailey DO LAB BLOOD ORDERABLES Final Result [facility] [address] [place], [place] [phone] [facility] [address] [place] [address] * Urinalysis with Reflex Testing (02/26/2022 4:55 PM T) Specimen, UA CLN CATCH 02/26/2022 4:55 PM [facility] Color, UA YELLOW 02/26/2022 5:37 PM [facility] Clarity, UA CLEAR CLEAR 02/26/2022 5:37 PM [facility] Glucose, UA NEG NEG mg/dL 02/26/2022 5:37 PM [facility] Bilirubin, UA NEG NEG 02/26/2022 5:37 PM [facility] Ketones, UA NEG NEG mg/dL 02/26/2022 5:37 PM [facility] Specific Yoder, UA 1.015 1.002 - 1.020 02/26/2022 5:37 PM [facility] Blood, UA NEG NEG 02/26/2022 5:37 PM [facility] PH, UA 7.0 5.0 - 8.0 02/26/2022 5:37 PM [facility] Protein, UA NEG NEG mg/dL 02/26/2022 5:37 PM [facility] Urobilinogen,U A 0.2 0.1 - 1.0 [Emmanuel'U ]/dL 02/26/2022 5:37 PM [facility] Nitrite, UA NEG NEG 02/26/2022 5:37 PM T [facility] Leukocyte Esterase, UA NEG NEG 02/26/2022 5:37 PM [facility] Comment NONE 02/26/2022 5:37 PM [facility] Urine URINE SPECIMEN FROM URINARY BLADDER / Unknown 02/26/2022 4:55 PM CDT 02/26/2022 5:06 PM CDT Rickey Bailey DO URINE ORDERABLES Final Resu lt [facility] [address] [place], [place] [phone] [facility] [address] [place] [address] documented in this encounter Visit Diagnoses Diagnosis Epiploic appendagitis- Primary Other and unspecified noninfectious gastroenteritis and colitis documented in this encounter Administered Medications Inactive Administered Medications - up to 3 most recent administrations Medication Order MAR Action Action Date Dose Rate Site iohexol (OMNIPAQUE) 350 MG/ML injection 100 mL, Intravenous, ONCE, On [place] 02/26/22 at 1830, For 1 dose Given 02/26/2022 6:10 PM CDT 100 mLs Right Arm sodium chloride radiology bolus 0.9 % 100 mL 100 mL, Intravenous, ONCE, On [place] 02/26/22 at 1830, For 1 dose Given 02/26/2022 6:09 PM CDT 100 mLs Right Arm documented in this encounter Active and Recently Administered Medications Times are shown in CDT. Scheduled Medication Order 02/24/2022 02/25/2022 02/26/2022 iohexol (OMNIPAQUE) 350 MG/ML injection (COMPLETED) 100 mL, Intravenous, ONCE, On Kaycee 02/26/22 at 1830, For 1 dose 1810 (Given - Provid er: Iman Walton, RTR) sodium chloride radiology bolus 0.9 % 100 mL (COMPLETED) 100 mL, Intravenous, ONCE, On Kaycee 02/26/22 at 1830, For 1 dose 1809 (Given - Provid er: Iman Walton, RTR) documented in this encounter Additional Health Concerns Assessment Noted Time A fall risk assessment has been complete d for the patient 08/27/2021 11:36 AM CDT A Body Mass Index follow-up plan has been documented for the patient 12/23/2021 12:30 PM DUMP MOTORMAN documented as of this encounter Care Teams Boiler Helper Relationship Specialty Start Date End Date Patient, None Per PCP - General 02/26/22 05/11/22 Lacey Perdue MD [address] [phone] Referring Physician Infectious Diseases 06/28/18 documented as of this encounter
--- OUTSIDE RECORDS SUMMARY | 2024-11-23 00:24 | XMS_ITS | Encounter Summary ---
Author Organization [employer] Address [address] [place] [address] Care Team Providers Care Computer Video Game Designer Name Role Phone Lcaey Perdue MD Unavailable [phone] Jose Manuel Villegas MD Primary Care Provider [phone] Reason for Visit * Reason Comments Medication Refill Encounter Details Date Type Department Care Team (Late st Contact Info) Description 09/10/2022 Refill [facility] [place] [address] Jose Manuel Villegas MD [address] [place] [address] Social History Tobacco Use Types Packs/Day [...] Author No 10/25/2017 2:00 PM Deonna Padilla, PEARL CUTTER * Do you have serious difficulty walking or climbing stairs? (5 years old or older) Answer Date of Assessment Author No 10/25/2017 2:00 PM Deonna Padilla, PEARL CUTTER * Do you have difficulty dressing or bathing? (5 years old or older) Answer Date of Assessment Author No 10/25/2017 2:00 PM Deonna Padilal, PEARL CUTTER * Because of a physical, mental, or [...] as of this encounter Care Teams Computer Video Game Designer Relationship Specialty Start Date End Date Jose Manuel Villegas MD [address] [place] [address] PCP - General Church Administrator 05/12/22 11/25/22 Lacey Perdue MD [address] [phone] Referring Physician Infectious Diseases 06/28/18 documented as of this encounter
--- OUTSIDE RECORDS SUMMARY | 2024-11-23 00:24 | XMS_ITS | Encounter Summary ---
Author Organization [employer] Address [address] [place] [address] Care Team Providers Care Sanitarian Inspector Name Role Phone Lacey Perdue MD Unavailable Jose Manuel Villegas MD Primary Care Provider Reason for Visit * Reason Onset Date Comments Not Seen by Provider 10/13/2022 Encounter Details Date Type Department Care Team (Late st Contact Info) Description 10/13/2022 1:45 PM APIARIST Telemedicine [facility] [address] [place] [phone] Emmanuel Jefferson, BANQUET CAPTAIN [address] [place] [address] Not Seen by Provider (Primary Dx) Social History Tobacco Use Types [...] of Assessment Author No 10/25/2017 2:00 PM APIARIST Deonna Galvan y S, VEST PRESSER * Are you blind or do you have serious difficulty seeing, even when wearing glasses? Answer Date of Assessment Author No 10/25/2017 2:00 PM APIARIST Cole Am y S, VEST PRESSER * Do you have serious difficulty walking or climbing stairs? (5 years old or older) Answer Date of Assessment Author No 10/25/2017 2:00 PM APIARIST Cole Am y S, VEST PRESSER * Do you have difficulty dressing or bathing? (5 years old or older) Answer Date of Assessment Author No 10/25/2017 2:00 PM APIARIST Cole Am y S, VEST PRESSER * Because of a physical, mental, or emotional condition, do you have difficulty doing errands alone such as visiting a doctor's office or shopping? (15 years old or older) Answer Date of Assessment Author No 10/25/2017 2:00 PM APIARIST Cole Am y S, VEST PRESSER documented as of this encounter Mental Status * Because of a physical, mental, or emotional condition, do you have serious difficulty concentrating, remembering, or making decisions? (5 years old or older) Answer Entry Date Author No 10/25/2017 2:00 PM APIARIST Cole Am y S, VEST PRESSER documented in this encounter Progress Notes * Emmanuel Jefferson NP - 10/13/2022 1:45 PM CST Patient was not seen by provider because the patient was unavailable to be seen. RIST documented in this encounter Plan of Treatment Not on file documented as of this encounter Goals Goal Patient Goal Type Associated Problems Recent Progress Patient-Stated? Author Blood Pressure < 140/90 Blood Pressure 134/86(2022 2:25 PM CDT) No Leonard Jasso APRN documented as of this encounter Visit Diagnoses Diagnosis Not Seen by Provider- Primary documented in this encounter Additional Health Concerns Assessment Noted Time A fall risk assessment has been complete d for the patient 09/17/2022 9:09 AM CDT A Body Mass Index follow-up plan has been documented for the patient 09/17/2022 9:29 AM CDT documented as of this encounter Care Teams Sanitarian Inspector Relationship Specialty Start Date End Date Jose Manuel Villegas MD [address] [place] [address] PCP - General Hatch Supervisor 05/12/22 11/25/22 Lacey Perdue MD [address] [phone] Referring Physician Infectious Diseases 06/28/18 documented as of this encounter
--- OUTSIDE RECORDS SUMMARY | 2024-11-23 00:24 | XMS_ITS | Encounter Summary ---
Author Organization [employer] Address [address] [place] [address] Care Team Providers Care Administration Manager Name Role Phone Lacey Perdue MD Unavailable Jose Manuel Maurer MD Primary Care Provider Reason for Visit * Reason Comments Abdominal Pain * MRI/CAT Scan (Urgent) - Closed Specialty Diagnoses / Procedures Referred By Contac t Referred To Contact Radiology Diagnoses Intractable abdominal pain Other osteoarthritis involving multiple joints Procedures CT Abdomen and Pelvis w Contrast Jose Manuel Maurer MD [address] [place] [address] Phone: tel: fax: Referral ID Status Reason Start Date Expiration Date Visits Re quested Visits Authorized [id number] Closed 05/12/2022 11/13/2023 1 1 Encounter Details Date Type Department Care Team ([facility] st Contact Info) Description 05/12/2022 11:30 AM CDT Clinical Support [facility] [address] [place] [address] Jose Manuel Maurer MD [facility] [place] [address] Janelle Granados, RTR [address] [place] [address] Intractable abdominal pain; Other osteoarthritis involving multiple joints Social History Tobacco Use Types Packs/Day Years Used Date Smoking Tobacco: Never Smokeless Tobacco: Never Alcohol Use Standard Drinks/Week Comments No 0 (1 standard drink = 0.6 oz pur e alcohol) PHQ-2 Answer Date Recorded PHQ-2 Total Score 0 05/12/2022 Sex and Gender Information Value Date Recorded [...] suspected to have Coronavirus/COVID-19? No / Unsure 05/12/2022 9:22 AM CDT documented as of this encounter [...] Author No 10/25/2017 2:00 PM Deonna Padilla FLAME PLANER * Because of a physical, mental, or [...] 134/86(2022 2:25 PM CDT) No Leonard Jasso W, AIR CONDITIONING EQUIPMENT MECHANIC documented as of this encounter Procedures Procedure Name Priority Date/Time Associated Diagnosis Comments CT ABDOMEN AND PELVIS W CONTRAST STAT 05/12/2022 11:52 AM CDT Intractable abdominal pain Other osteoarthritis involving multiple joints documented in this encounter Results * CT Abdomen and Pelvis w Contrast (05/12/2022 11:52 AM CDT) Anatomical Region Laterality Modality Abdomen, Pelvis, Hip Computed To mography 05/12/2022 11:5 2 AM CDT Narrative 05/12/2022 12:11 PM CDT [address] ??[address] DIAGNOSTIC IMAGING Name: EDILBERTO DURAND ??Ordering Phys: JOSE MANUEL MAURER Date of : 1955 ?Gender: M ??Accession Number: [id number] EXAM DESCRIPTION: CT ABDOMEN AND PELVIS W CONTRAST REASON FOR STUDY: (INTRACTABLE ABD PAIN, OSTEOARTHRITIS OF MULTIPLE JOINTS) RIGHT LOWER ABD TENDERNESS, PT STATES AN ABNORMALITY SEEN ON A CT FROM A FEW WEEKS AGO TECHNIQUE: CT scan of the abdomen and pelvis performed with intravenous and with oral contrast using helical scanning technique with dynamic intravenous contrast injection. Reconstructed coronal and sagittal MPR images reviewed. All images stored on PACS. ?? Automated exposure control was used as a dose optimization technique for this examination. CONTRAST TYPE/DOSE: 80 mL Omnipaque 350 injected via left forearm without complication. COMPARISON: None. FINDINGS: LOWER CHEST: Included lung bases are clear of acute process. ??No pleural effusion LIVER: Normal size. ??No identified cystic or solid masses. GALLBLADDER: The gallbladder is normal BILE DUCTS: No intrahepatic or extrahepatic ductal dilatation SPLEEN: Normal size, No focal lesions. PANCREAS: No identified cystic or solid masses. No significant calcifications. ??No adjacent inflammation or peripancreatic fluid collections. ??Pancreatic duct not dilated. ADRENALS: Normal KIDNEYS/URINARY TRACT: Kidneys enhanced symmetrically. ??No solid or cystic masses. ??No stone or hydronephrosis. ??Urinary bladder unremarkable. GI: No dilated bowel loops. No obvious wall thickening. ??Normal appendix. ??There is diverticulosis without evidence of diverticulitis. PERITONEUM: No ascites or free air. RETROPERITONEUM: No mass or adenopathy. REPRODUCTIVE: Prostate is unremarkable VASCULATURE: Vessels of the abdomen are normal in caliper without significant atherosclerosis or aneurysm. MUSCULOSKELETAL: No aggressive lytic or sclerotic lesions. OTHER: None IMPRESSION: No acute intra-abdominal pathology THIS IS AN ELECTRONICALLY VERIFIED FINAL REPORT 05/12/2022 12:09 PM - Electronically signed by Jesús Clark M.D. Procedure Note Jesús Clark MD - 05/12/2022 [place] [address] DIAGNOSTIC IMAGING Name: EDILBERTO DURAND Ordering Phys: MERCY MAURERMARIANNE Date of : 1955 Gender: M Accession Number: [id number] EXAM DESCRIPTION: CT ABDOMEN AND PELVIS W CONTRAST REASON FOR STUDY: (INTRACTABLE ABD PAIN, OSTEOARTHRITIS OF MULTIPLE JOINTS) RIGHT LOWER ABD TENDERNESS, PT STATES AN ABNORMALITY SEEN ON A CT FROM A FEW WEEKS AGO TECHNIQUE: CT scan of the abdomen and pelvis performed with intravenous and with oral contrast using helical scanning technique with dynamic intravenous contrast injection. Reconstructed coronal and sagittal MPR images reviewed. All images stored on PACS. Automated exposure control was used as a dose optimization technique for this examination. CONTRAST TYPE/DOSE: 80 mL Omnipaque 350 injected via left forearm without complication. COMPARISON: None. FINDINGS: LOWER CHEST: Included lung bases are clear of acute process. No pleural effusion LIVER: Normal size. No identified cystic or solid masses. GALLBLADDER: The gallbladder is normal BILE DUCTS: No intrahepatic or extrahepatic ductal dilatation SPLEEN: Normal size, No focal lesions. PANCREAS: No identified cystic or solid masses. No significant calcifications. No adjacent inflammation or peripancreatic fluid collections. Pancreatic duct not dilated. ADRENALS: Normal KIDNEYS/URINARY TRACT: Kidneys enhanced symmetrically. No solid or cystic masses. No stone or hydronephrosis. Urinary bladder unremarkable. GI: No dilated bowel loops. No obvious wall thickening. Normal appendix. There is diverticulosis without evidence of diverticulitis. PERITONEUM: No ascites or free air. RETROPERITONEUM: No mass or adenopathy. REPRODUCTIVE: Prostate is unremarkable VASCULATURE: Vessels of the abdomen are normal in caliper without significant atherosclerosis or aneurysm. MUSCULOSKELETAL: No aggressive lytic or sclerotic lesions. OTHER: None IMPRESSION: No acute intra-abdominal pathology THIS IS AN ELECTRONICALLY VERIFIED FINAL REPORT 05/12/2022 12:09 PM - Electronically signed by Jesús Clark M.D. Jose Manuel Maurer MD IMG CT ORDERABLES Final Res ult documented in this encounter Visit Diagnoses Diagnosis Intractable abdominal pain Abdominal pain, unspecified site Other osteoarthritis involving multiple joints documented in this encounter Additional Health Concerns Assessment Noted Time A fall risk assessment has been complete d for the patient 05/12/2022 9:40 AM CDT A Body Mass Index follow-up plan has been documented for the patient 05/12/2022 10:14 AM CDT documented as of this encounter Care Teams Administration Manager Relationship Specialty Start Date End Date Jose Manuel Maurer MD [facility] [place] [address] PCP - General Sanitation Truck Driver 05/12/22 11/25/22 Lacey Perdue MD [address] [phone] Referring Physician Infectious Diseases 06/28/18 documented as of this encounter
--- OUTSIDE RECORDS SUMMARY | 2024-11-23 00:24 | XMS_ITS | Encounter Summary ---
Author Organization [employer] Address [address] [place] [address] Care Team Providers Care Tool And Die Maker Level Five Name Role Phone Lacey Perdue MD Unavailable [phone] Patient, None Per Primary Care Provider Unavaila ble Reason for Visit * Nuclear Medicine (Routine) - Closed Specialty Diagnoses / Procedures Referred By Contac t Referred To Contact Radiology Diagnoses RUQ abdominal pain Procedures NM Hepatobiliary System Imaging wo Drug NM Hepatobiliary System Imag w Drug Yessenia Loyd MD [facility] [address] [place] [address] Phone: tel: fax: Referral ID Status Reason Start Date Expiration Date Visits Re quested Visits Authorized [id number] Closed 03/22/2023 05/17/2023 8 8 Encounter Details Date Type Department Care Team (Latest Contact Info) Description 04/30/2023 6:38 AM CDT - 04/30/2023 11:59 PM CDT Hospital Encounter [facility] [address] [facility] [address] [place] [id number] Yessenia Loyd MD [address] [place] [address] [address] [place] [address] RUQ abdominal pain Discharge Disposition: Home - [...] Procedure Name Priority Date/Time Associated Diagnosis Comments NM HEPATOBILIARY SYSTEM IMAGING WO DRUG Routine 04/30/2023 9:28 AM CDT RUQ abdominal pain documented in this encounter Results * NM Hepatobiliary System Imaging wo Drug (04/30/2023 9:28 AM CDT) Anatomical Region Laterality Modality Abdomen Nuclear Medicine 04/30/2023 6:42 AM CDT Impressions 04/30/2023 12:22 PM CDT Unremarkable nuclear medicine HIDA scan and gallbladder ejection fraction. THIS IS AN ELECTRONICALLY VERIFIED FINAL REPORT 04/30/2023 12:19 PM - Electronically signed by Kerwin Malik M.D. Narrative 04/30/2023 12:[address] PM [address] [place] [address] DIAGNOSTIC IMAGING Name: EDILBERTO DURAND ??Ordering Phys: YESSENIA LOYD Date of : 1955 ?Gender: M ??Accession Number: [id number] EXAM DESCRIPTION: NM HEPATOBILIARY SYSTEM IMAGING WO DRUG RADIOPHARMACEUTICAL: 5.6 mCi Tc-99m mebrofenin via IV within left antecubital fossa REASON FOR STUDY: Right-sided abdominal pain and nausea for 3-4 months. TECHNIQUE: Following the intravenous administration of the radiopharmaceutical, sequential abdominal images were obtained. ?? Gallbladder ejection fraction was calculated after the oral administration of Ensure. COMPARISON: None. FINDINGS: These images demonstrate immediate and normal distribution of radiotracer throughout the liver without obvious mass identified. There is radiotracer identified within the gallbladder, biliary ductal system and small bowel at 20 minutes delay, within normal limits. Gallbladder ejection fraction is calculated at 90 9%, well within normal limits. Procedure Note Kerwin Malik MD - 04/30/[address] [place] [address] DIAGNOSTIC IMAGING Name: EDILBERTO DURAND Ordering Phys: YESSENIA LOYD Date of : 1955 Gender: M Accession Number: [id number] EXAM DESCRIPTION: NM HEPATOBILIARY SYSTEM IMAGING WO DRUG RADIOPHARMACEUTICAL: 5.6 mCi Tc-99m mebrofenin via IV within left antecubital fossa REASON FOR STUDY: Right-sided abdominal pain and nausea for 3-4 months. TECHNIQUE: Following the intravenous administration of the radiopharmaceutical, sequential abdominal images were obtained. Gallbladder ejection fraction was calculated after the oral administration of Ensure. COMPARISON: None. FINDINGS: These images demonstrate immediate and normal distribution of radiotracer throughout the liver without obvious mass identified. There is radiotracer identified within the gallbladder, biliary ductal system and small bowel at 20 minutes delay, within normal limits. Gallbladder ejection fraction is calculated at 90 9%, well within normal limits. IMPRESSION: Unremarkable nuclear medicine HIDA scan and gallbladder ejection fraction. THIS IS AN ELECTRONICALLY VERIFIED FINAL REPORT 04/30/2023 12:19 PM - Electronically signed by Kerwin Malik M.D. Yessenia Loyd MD [facility] [place] ORDERABLES Final Result documented in this encounter [...] documented as of this encounter Care Teams Tool And Die Maker Level Five Relationship Specialty Start Date End Date Patient, None Per PCP - General 03/04/23 Lacey Perdue MD [address] [phone] Referring Physician Infectious Diseases 06/28/18 documented as of this encounter
--- OUTSIDE RECORDS SUMMARY | 2024-11-23 00:24 | XMS_ITS | Encounter Summary ---
Author Organization [employer] Address [address] [place] [address] Care Team Providers Care Oral Surgeon Name Role Phone Lacey Perdue MD Unavailable [phone] Jose Manuel Villegas MD Primary Care Provider Encounter Details Date Type Department Care Team (Latest Contact Info) Description 05/12/2022 Travel Social History Tobacco Use Types Packs/Day [...] of Assessment Author No 10/25/2017 2:00 PM FIELD NURSE CASE MANAGER Galvan, Am y S, ASSOCIATE PROFESSOR OF ART * Do you have serious difficulty walking or climbing stairs? (5 years old or older) Answer Date of Assessment Author No 10/25/2017 2:00 PM JOHN Galvan Am y S, ASSOCIATE PROFESSOR OF ART * Do you have difficulty dressing or bathing? (5 years old or older) Answer Date of Assessment Author No 10/25/2017 2:00 PM FIELD NURSE CASE MANAGER Deonna Galvan y S, ASSOCIATE PROFESSOR OF ART * Because of a physical, mental, or emotional condition, do you have difficulty doing errands alone such as visiting a doctor's office or shopping? (15 years old or older) Answer Date of Assessment Author No 10/25/2017 2:00 PM FIELD NURSE CASE MANAGER Deonna Galvan y S, ASSOCIATE PROFESSOR OF ART documented as of this encounter Mental Status * Because of a physical, mental, or emotional condition, do you have serious difficulty concentrating, remembering, or making decisions? (5 years old or older) Answer Entry Date Author No 10/25/2017 2:00 PM JOHN Galvan Am y S, ASSOCIATE PROFESSOR OF ART documented in this encounter Plan of Treatment [...] documented as of this encounter Care Teams Oral Surgeon Relationship Specialty Start Date End Date Jose Manuel Villegas MD [address] [place] [address] PCP - General Contract Administration Coordinator 05/12/22 11/25/22 Lacey Perdue MD [address] [phone] Referring Physician Infectious Diseases 06/28/18 documented as of this encounter
--- OUTSIDE RECORDS SUMMARY | 2024-11-23 00:24 | XMS_ITS | Encounter Summary ---
Author Organization [employer] Address [address] [place] [address] Care Team Providers Care Medical Staff Assistant Name Role Phone Lacey Perdue MD Unavailable [phone] Jose Manuel Villegas MD Primary Care Provider Encounter Details Date Type Department Care Team (Late st Contact Info) Description 06/04/2022 Orders Only [facility] [address] [place] [address] Nasir Pena, RN [address] [place] [address] Chronic pain syndrome (Primary Dx) Social History Tobacco Use Types [...] 2:00 PM JOHN Galvan Am y S, INTERNATIONAL OPERATIONS MANAGER * Are you blind or do you have serious difficulty seeing, even when wearing glasses? Answer Date of Assessment Author No 10/25/2017 2:00 PM JOHN Galvan Am y S, INTERNATIONAL OPERATIONS MANAGER * Do you have serious difficulty walking or climbing stairs? (5 years old or older) Answer Date of Assessment Author No 10/25/2017 2:00 PM JOHN Galvan Am y S, INTERNATIONAL OPERATIONS MANAGER * Do you have difficulty dressing or bathing? (5 years old or older) Answer Date of Assessment Author No 10/25/2017 2:00 PM MAIL TELLER Deonna Galvan y S, INTERNATIONAL OPERATIONS MANAGER * Because of a physical, mental, or emotional condition, do you have difficulty doing errands alone such as visiting a doctor's office or shopping? (15 years old or older) Answer Date of Assessment Author No 10/25/2017 2:00 PM MAIL TELLER Deonna Galvan y S, INTERNATIONAL OPERATIONS MANAGER documented as of this encounter Mental Status * Because of a physical, mental, or emotional condition, do you have serious difficulty concentrating, remembering, or making decisions? (5 years old or older) Answer Entry Date Author No 10/25/2017 2:00 PM JOHN Galvan Am y S, INTERNATIONAL OPERATIONS MANAGER documented in this encounter Plan of Treatment Not on file documented as of this encounter Goals Goal Patient Goal Type Associated Problems Recent Progress Patient-Stated? Author Blood Pressure < 140/90 Blood Pressure 134/86(2022 2:25 PM CDT) No Leonard Jasso APRN documented as of this encounter Visit Diagnoses Diagnosis Chronic pain syndrome- Primary documented in this encounter Additional Health Concerns Assessment Noted Time A fall risk assessment has been complete d for the patient 05/12/2022 9:40 AM CDT A Body Mass Index follow-up plan has been documented for the patient 05/12/2022 10:14 AM CDT documented as of this encounter Care Teams Medical Staff Assistant Relationship Specialty Start Date End Date Jose Manuel Villegas MD [facility] [place] [address] PCP - General Fish Bait Processing Supervisor 05/12/22 11/25/22 Lacey Perdue MD [address] [facility] [address] [place] [phone] Referring Physician Infectious Diseases 06/28/18 documented as of this encounter
--- OUTSIDE RECORDS SUMMARY | 2024-11-23 00:24 | XMS_ITS | Encounter Summary ---
Author Organization [facility] Address [address] [place] [id number] Care Team Providers Care Customer Support Analyst Name Role Phone Lacey Perdue MD Unavailable [phone] Patient, None Per Primary Care Provider Unavaila ble Reason for Visit * Reason Onset Date Comments overdue labs 04/22/2023 Encounter Details Date Type Department Care Team (Late st Contact Info) Description 04/22/2023 Telephone [facility] - General Surgery [address] [place] [address] [address] [place] [address] Deidra Mota, RN [address] [place] [address] [address] [place] [address] overdue labs Social History Tobacco Use Types Packs/Day Years [...] Author No 10/25/2017 2:00 PM Deonna Padilla, DELIVERY SALES WORKER * Do you have serious difficulty walking or climbing stairs? (5 years old or older) Answer Date of Assessment Author No 10/25/2017 2:00 PM Deonna Padilla S, DELIVERY SALES WORKER * Do you have difficulty dressing or bathing? (5 years old or older) Answer Date of Assessment Author No 10/25/2017 2:00 PM Deonna Padilla, DELIVERY SALES WORKER * Because of a physical, mental, or emotional condition, do you have difficulty doing errands alone such as visiting a doctor's office or shopping? (15 years old or older) Answer Date of Assessment Author No 10/25/2017 2:00 PM Deonna Padilla, DELIVERY SALES WORKER documented as of this encounter Mental Status * Because of a physical, mental, or emotional condition, do you have serious difficulty concentrating, remembering, or making decisions? (5 years old or older) Answer Entry Date Author No 10/25/2017 2:00 PM Deonna Padilla, DELIVERY SALES WORKER documented in this encounter Miscellaneous Notes * Addendum Note - Deidra Mota RN - 05/05/2023 9:17 AM CDTAddended by: DEIDRA MOTA on: 05/05/2023 09:17 AM Modules accepted: Orders * Telephone Encounter - Deidra Mota RN - 05/05/2023 9:13 AM CDT Talked with pt about labs. Pt states to cancel labs for right now and he will follow up with officeas needed. Labs cancelled. Dafne RN * Telephone Encounter - Deidra Mota RN - 05/04/2023 8:52 AM CDT Due to pt not responding letter mailed, labs extended. Dafne RN * Telephone Encounter - Deidra Mota RN - 04/27/2023 8:11 AM CDT VM left for Edilberto Hawley to [facility]. Dafne RN * Telephone Encounter - Deidra Mota RN - 04/22/2023 1:28 PM CDT Attempted to call pt, no answer, and unable to leave message. Will attempt to call pt at later time. Dafne RN * Telephone Encounter - Deidra Mota RN - 04/22/2023 1:27 PM CDT Images from the original note were not included. Siddhartha Loyd MD You 4 hours ago (9:06 AM) It is the patient's choice. ??If he would like to proceed with those that would be fine if he chooses not to that is fine as well. PDP * Telephone Encounter - Deidra Mota RN - 04/22/2023 8:21 AM CDT Pt is overdue to complete labs. Pt is due for CRP, amylase, lipase, CMP, and CBC. Pt was called on 03/29/23 and reminded to do lab work but lab work is still not completed. Please advise if you still want pt to complete labs or if okay to cancel? Thank you documented in this encounter Plan of Treatment [...] as of this encounter Care Teams Customer Support Analyst Relationship Specialty Start Date End Date Patient, None Per PCP - General 03/04/23 Lacey Perdue MD [address] [phone] Referring Physician Infectious Diseases 06/28/18 documented as of this encounter
--- OUTSIDE RECORDS SUMMARY | 2024-11-23 00:24 | XMS_ITS | Encounter Summary ---
Author Organization [facility] Address [address] [place] [address] Care Team Providers Care Floor Installer Name Role Phone Lacey Perdue MD Unavailable Reason for Visit * Reason Onset Date Comments other 03/01/2023 Encounter Details Date Type Department Care Team (Late st Contact Info) Description 03/01/2023 Telephone [facility] - General Surgery [address] [place] [address] [address] [place] [address] Deidra Mota, RN [address] [place] [address] [address] [place] [address] other Social History Tobacco Use Types Packs/Day Years [...] of Assessment Author No 10/25/2017 2:00 PM CLINICAL LABORATORY MEDICAL DIRECTOR Galvan, Am y S, HARBOUR MASTER * Do you have serious difficulty walking or climbing stairs? (5 years old or older) Answer Date of Assessment Author No 10/25/2017 2:00 PM Deonna Padilla S, HARBOUR MASTER * Do you have difficulty dressing or bathing? (5 years old or older) Answer Date of Assessment Author No 10/25/2017 2:00 PM Deonna Padilla S, HARBOUR MASTER * Because of a physical, mental, or emotional condition, do you have difficulty doing errands alone such as visiting a doctor's office or shopping? (15 years old or older) Answer Date of Assessment Author No 10/25/2017 2:00 PM JOHN Galvan Am y S, HARBOUR MASTER documented as of this encounter Mental Status * Because of a physical, mental, or emotional condition, do you have serious difficulty concentrating, remembering, or making decisions? (5 years old or older) Answer Entry Date Author No 10/25/2017 2:00 PM Deonna Padilla, HARBOUR MASTER documented in this encounter Miscellaneous Notes * Telephone Encounter - Deidra Mota RN - 03/01/2023 9:19 AM CDT PC from pt stating that for a long time now he has had right sided pain. Pt states that he went to the [place] ER and they did not think it was anything. Pt states that there is something going on in the inside. Pt states his belly swells up and his stool smells like chemical. Pt states Dr. Loyd scoped him almost 3 years ago and would like him to scope him again. Schedule pt an appt with Dr. Loyd on 03/04/23. * Telephone Encounter - Deidra Mota RN - 03/01/2023 8:59 AM CDT Attempted to call pt, no answer and unable to leave message. Will attempt to call patient at later time. Dafne RN * Telephone Encounter - Deidra Mota RN - 03/01/2023 8:59 AM CDT ----- Message from Colleen Bangura sent at 03/01/2023 8:28 AM CDT ----- Regarding: Callback Request Contact: los Saez Provider: Evert RE: Callback Request Who Called? Patient Is the patient active on MyChart?: No Patient call back number: Preferred Patient is wanting to discuss getting scopes performed with nurse. Would like callback request whenavailable. Patient stated Dr. Loyd has done his scopes prior and it is nearing his 3 year melissa to get anotherscope, was wanting to move that scope up earlier due to patient not feeling well and he stated he knows its internal. documented in this encounter Plan of Treatment Not on file documented as of this encounter Goals Goal Patient Goal Type Associated Problems Recent Progress Patient-Stated? Author Blood Pressure < 140/90 Blood Pressure 134/86(2022 2:25 PM CDT) No Leonard Jasso, ANGIE documented as of this encounter Visit Diagnoses Not on filedocumented in this encounter Additional Health Concerns Assessment Noted Time A fall risk assessment has been complete d for the patient 09/17/2022 9:09 AM CDT A Body Mass Index follow-up plan has been documented for the patient 09/17/2022 9:29 AM CDT documented as of this encounter Care Teams Floor Installer Relationship Specialty Start Date End Date Lacey Perdue MD [address] [phone] Referring Physician Infectious Diseases 06/28/18 documented as of this encounter
--- OUTSIDE RECORDS SUMMARY | 2024-11-23 00:24 | XMS_ITS | Encounter Summary ---
Author Organization [employer] Address [address] [place] [address] Care Team Providers Care Ship Purser Name Role Phone Lacey Perdue MD Unavailable Jose Manuel Villegas MD Primary Care Provider Reason for Visit * Reason Comments Follow-up R hand pain, TF inje ction 08/05/2022 Encounter Details Date Type Department Care Team (Late st Contact Info) Description 09/17/2022 8:45 AM CDT Office Visit [facility] Plastic Surgery [address] [place] [phone] Estevan Tripp MD [address] [place] [phone] Slac (scapholunate advanced collapse) of wrist, left (Primary Dx) Social History Tobacco Use Types [...] of Assessment Author No 10/25/2017 2:00 PM MEDIA ANALYTICS MANAGER Galvan, Am y S, RETAIL ADVERTISING ACCOUNT EXECUTIVE * Are you blind or do you have serious difficulty seeing, even when wearing glasses? Answer Date of Assessment Author No 10/25/2017 2:00 PM MEDIA ANALYTICS MANAGER Galvan, Am y S, RETAIL ADVERTISING ACCOUNT EXECUTIVE * Do you have serious difficulty walking or climbing stairs? (5 years old or older) Answer Date of Assessment Author No 10/25/2017 2:00 PM MEDIA ANALYTICS MANAGER Galvan, Am y S, RETAIL ADVERTISING ACCOUNT EXECUTIVE * Do you have difficulty dressing or bathing? (5 years old or older) Answer Date of Assessment Author No 10/25/2017 2:00 PM MEDIA ANALYTICS MANAGER Galvan, Am y S, RETAIL ADVERTISING ACCOUNT EXECUTIVE * Because of a physical, mental, or emotional condition, do you have difficulty doing errands alone such as visiting a doctor's office or shopping? (15 years old or older) Answer Date of Assessment Author No 10/25/2017 2:00 PM MEDIA ANALYTICS MANAGER Galvan, Am y S, RETAIL ADVERTISING ACCOUNT EXECUTIVE documented as of this encounter Mental Status * Because of a physical, mental, or emotional condition, do you have serious difficulty concentrating, remembering, or making decisions? (5 years old or older) Answer Entry Date Author No 10/25/2017 2:00 PM MEDIA ANALYTICS MANAGER Galvan, Am y S, RETAIL ADVERTISING ACCOUNT EXECUTIVE documented in this encounter Progress Notes * Estevan Tripp MD - 09/17/2022 8:45 AM CDT He presents today for follow-up of steroid injection to his left wrist and right middle finger trigger. He is doing well with the right hand, issue has resolved. With regard to the left hand, he reports several weeks of complete resolution of his pain but his symptoms have recurred. He continues towear his brace while he is working. At this point time we discussed the option of a wrist denervation but he only started a new job about a month ago and would like to wait sometime in the new year to proceed with any surgical treatment. If he feels have adequate improvement with the wrist denervation and he will need salvage wrist surgery with a proximal row carpectomy. All his questions were answered and he agrees with our plan. He will follow-up with us early 2022 documented in this encounter Plan of Treatment Not on file documented as of this encounter Goals Goal Patient Goal Type Associated Problems Recent Progress Patient-Stated? Author Blood Pressure < 140/90 Blood Pressure 134/86(2022 2:25 PM CDT) Leonard Montiel APRN documented as of this encounter Visit Diagnoses Diagnosis Slac (scapholunate advanced collapse) of wrist, left- Primary documented in this encounter Additional Health Concerns Assessment Noted Time A fall risk assessment has been complete d for the patient 09/17/2022 9:09 AM CDT A Body Mass Index follow-up plan has been documented for the patient 09/17/2022 9:29 AM CDT documented as of this encounter Care Teams Ship Purser Relationship Specialty Start Date End Date Jose Manuel Villegas MD [address] [place] [phone] PCP - General Drawing Frame Tender 05/12/22 11/25/22 Lacey Perdue MD [address] [phone] Referring Physician Infectious Diseases 06/28/18 documented as of this encounter
--- OUTSIDE RECORDS SUMMARY | 2024-11-23 00:24 | XMS_ITS | Encounter Summary ---
Author Organization [facility] Address [address] [place] [address] Care Team Providers Care Finishing Room Operator Name Role Phone Lacey Perdue MD Unavailable Catarina Maurer MD Primary Care Provider Reason for Referral * MRI/CAT Scan (Urgent) - Closed Specialty Diagnoses / Procedures Referred By Contac t Referred To Contact Radiology Diagnoses Intractable abdominal pain Other osteoarthritis involving multiple joints Procedures CT Abdomen and Pelvis w Contrast Catarina Maurer MD [address] [place] [phone] Phone: tel: fax: Referral ID Status Reason Start Date Expiration Date Visits Re quested Visits Authorized [id number] Closed 05/12/2022 11/13/2023 1 1 Reason for Visit * Reason Comments Establish Care Pain in left wrist a nd shoulder from a fall a few days ago of a shed, right lower abd pain. And lower back pain Encounter Details Date Type Department Care Team (Latest Contact Info) Description 05/12/2022 9:15 AM CDT Office Visit [facility] [address] [place] [phone] Catarina Maurer MD [address] [place] [phone] Intractable abdominal pain (Primary Dx); Other osteoarthritis involving multiple joints; Well adult exam; Congestion of nasal sinus; Dyspnea, unspecified type; Encounter for long-term current use of medication; Chronic bilateral low back pain with left-sided sciatica; Spinal stenosis, unspecified spinal region; Hyperlipidemia, unspecified hyperlipidemia type; COVID-19; Elevated liver enzymes; Hepatomegaly Social History Tobacco Use Types Packs/Day Years [...] AM CDT documented as of this encounter Last Filed Vital Signs Vital Sign Reading Time Taken Comments Blood Pressure 120/70 05/12/2022 9:37 AM CDT Pulse 88 05/12/2022 9:37 AM CDT Temperature - - Respiratory Rate - - Oxygen Saturation 95% 05/12/2022 9:37 AM CDT Inhaled Oxygen Concentration - - Weight 88.5 kg (195 lb) 05/12/2022 9:37 AM CDT Height 180.3 cm (5' 11 ) 05/12/2022 9:37 AM CDT Body Mass Index 27.2 05/12/2022 9:37 AM CDT documented in this encounter Functional Status [...] Deonna Padilla ARNP documented in this encounter Progress Notes * Delfino Davila RN - 05/12/2022 9:15 AM CDT There is no height or weight on file to calculate BMI. Se received nutritional counseling in the following manner: reassuring about nutrition Se received physical activity counseling in the following manner: recommendation to exercise * Catarina Maurer MD - 05/12/2022 9:15 AM CDT [facility] Department of Family Medicine [address] [place], [place] [id number] Date: 05/12/2022 Name: Edilberto Hawley : 1955 PCP: Catarina Maurer MD SUBJECTIVE: Edilberto Hawley is a 66 y.o. male who carries a significant medical history of generalized osteoarthritis, chronic back pain, osteomyelitis of ankle, presenting to the clinic to establish care. Patient takes oxycodone 1 tablet every 6 hours as needed for pain. In addition he takes baclofen, diclofenac. He request refills of medications. I am not comfortable with 120 tablets/month. Patient made aware. If he is to continue practicing in our clinic, we will only prescribe 60 tablets over 1 month. Drug contract, UDS to be established today. Referral to pain management will be ordered. In addition, patient notes intractable right lower quadrant abdominal discomfort over the last 8 weeks. See n at an outside facility with CT scan showing a questionable growth along his right colon. He does not have those records and cannot describe any further detail. He describes intractable right lower quadrant discomfort, almost a burning sensation, none radiational, 8 out of 10 at times, without alleviating or aggravating factors. He denies fevers, shakes, chills, nausea, decreased appetite, weight loss, hematemesis, hematochezia. No history of colon cancer. Has had routine colonoscopies in the past without sinister findings. PMH: Edilberto has a past medical history of Arthritis, Back injury, Chronic back pain greater than 3 months duration, GERD (gastroesophageal reflux disease), Hepatic steatosis (07/28/2021), Migraines, Osteomyelitis of ankle or foot, acute, right (HCC) (2018), Shoulder injury, Substance abuse (HCC), and Wrist disorder. PSH: Edilberto has a past surgical history that includes Rotator cuff repair (Left); Shoulder surgery (Right); Elbow surgery (Left); Spine surgery; Fracture surgery (Left); Incision and drainage foot (Right); Joint replacement (Left); Colonoscopy w/ polypectomy (12/07/2018); Esophagogastroduodenoscopy(12/18/2020); US Guided Needle Placement (05/15/2021); and Nasal septoplasty w/ turbinoplasty (08/29/2021). FH: Edilberto family history includes Dementia in his mother. SH: Edilberto reports that he has never smoked. He has never used smokeless tobacco. He reports current drug use. Drug: Hydrocodone. He reports that he does not drink alcohol. Review of systems negative x12 points except discussed in HPI. I reviewed previous medical records and spoke to the patient about their current medical condition. OBJECTIVE: BP 120/70 Pulse 88 Ht 1.803 m (5' 11 ) Wt 88.5 kg (195 lb) SpO2 95% BMI 27.20 kg/m?? Bodymass index is 27.2 kg/m??. PHYSICAL EXAM: General appearance - alert, well appearing, and in no distress Mental status - alert, oriented to person, place, and time HEENT- atraumatic, normocephalic, clear oropharynx. Chest - clear to auscultation, no wheezes, rales or rhonchi, symmetric air entry Heart - normal rate, regular rhythm, normal S1, S2, no murmurs, rubs, clicks or gallops Abdomen -tenderness noted to the right lower quadrant. Positive bowel sounds, no guarding Extremities - peripheral pulses normal, no pedal edema Skin - normal coloration, no rashes Current Outpatient Medications: ??? albuterol 108 (90 Base) MCG/ACT inhaler, Inhale 2 (two) puffs into the lungs every 4 (four) hours as needed for Wheezing. ??? amitriptyline (ELAVIL) 150 MG tablet, Take 1 (one) tablet by mouth daily. ??? Ascorbic Acid (VITAMIN C) 500 MG tablet, Take 500 mg by mouth daily. ??? aspirin 325 MG tablet, Take 325 mg by mouth. ??? baclofen (LIORESAL) 10 MG tablet, TAKE ONE TABLET BY MOUTH THREE TIMES A DAY IF NEEDED FOR MUSCLE SPASMS ??? diclofenac sodium (VOLTAREN) 50 MG EC tablet, Take 1 tablet by mouth 2 (two) times daily. ??? docusate sodium (COLACE) 100 MG capsule, TAKE ONE CAPSULE BY MOUTH TWICE A DAY NEEDED FOR CONSTIPATION--TAKE WHILE ON NARCOTIC PAIN MEDICATIONS ??? Multiple Vitamins-Minerals (ONE DAILY MULTIVITAMIN ADULT PO), Take by mouth. ??? NARCAN 4 MG/0.1ML LIQD nasal liquid, USE DIRECTED. ??? oxyCODONE-acetaminophen (PERCOCET) 10-325 MG per tablet, TAKE ONE TABLET EVERY SIX HOURS IF NEEDED FOR PAIN. ??? Probiotic Product (SOLUBLE FIBER/PROBIOTICS PO), Take 1 tablet by mouth daily. ??? tamsulosin HCl (FLOMAX) 0.4 MG capsule, Take 1 (one) capsule by mouth daily. ??? vitamin D (CHOLECALCIFEROL) 1000 units tablet, Take 1,000 Units by mouth daily. ??? zinc sulfate (ZINCATE) 220 (50 Zn) MG capsule, Take 220 mg by mouth daily. ASSESSMENT/PLAN: #1 intractable right lower quadrant abdominal discomfort #2. General osteoarthritis, history of osteomyelitis Obtain drug contract, UDS. Will prescribe oxycodone with 60 tablets lasting 1 month. Patient is aware. He requests referral to pain management. Obtain CT abdomen and pelvis without contrast, labs as described below. He will follow-up in 2 weeks time. Problem List Items Addressed This Visit None No follow-ups on file. Patient given verbal and/or written education and agrees and acknowledges understanding of the treatment plan. Signed: Catarina Maurer MD 05/12/2022 9:41 AM This document was dictated using Dragon morgue librarian variances may occur documented in this encounter Miscellaneous Notes * Addendum Note - Janelle Meng, RTR - 05/12/2022 9:15 AM CDTAddended by: JANELLE MENG on: 05/12/2022 10:57 AM Modules accepted: Orders * Addendum Note - Delfino Davila RN - 05/12/2022 9:15 AM CDTAddended by: DELFINO DAVILA on: 05/12/2022 01:57 PM Modules accepted: Orders documented in this encounter Plan of Treatment Not on file documented as of this encounter Goals Goal Patient Goal Type Associated Problems Recent Progress Patient-Stated? Author Blood Pressure < 140/90 Blood Pressure 134/86(2022 2:25 PM CDT) No Leonard Jasso APRN documented as of this encounter Results * CT Abdomen and Pelvis w Contrast (05/12/2022 11:52 AM CDT) Anatomical Region Laterality Modality Abdomen, Pelvis, Hip Computed To mography 05/12/2022 11:5 2 AM CDT Narrative 05/12/2022 12:11 PM CDT [address] ??[id number] DIAGNOSTIC IMAGING Name: EDILBERTO HAWLEY ??Ordering Phys: CATARINA MAURER Date of : 1955 ?Gender: M ??Accession Number: [id number] EXAM DESCRIPTION: CT ABDOMEN AND PELVIS W [...] Procedure Note Jesús Clark MD - 05/12/2022 [place] [address] DIAGNOSTIC IMAGING Name: EDILBERTO HAWLEY Ordering Phys: CATARINA MAURER Date of : 1955 Gender: M Accession Number: [id number] EXAM DESCRIPTION: CT ABDOMEN AND PELVIS W [...] - Electronically signed by Jesús Clark M.D. Catarina Maurer MD [facility] [place] CT ORDERABLES Final Res ult * (ABNORMAL) Comprehensive metabolic panel (05/12/2022 11:22 AM CDT) Glucose 175(H) 60 - 100 mg/dL [facility] Comment: Fasting Plasma Glucose (FPG) ?<100 MG/DL Impaired Fasting Glucose (IFG) ? 100-125 MG/DL Provisional Diagnosis of Diabetes Mellitus ?? > or = 126 MG/DL (Diagnosis Must Be Confirmed) BUN 16 8 - 26 mg/dL [facility] Creatinine 1.08 0.70 - 1.40 mg/dL [facility] Glomerular Filtration Rate Estimate 74(L) >80 mL/min/1.7 3m2 [facility] Comment:The estimated GFR george s not been validated for women or patients with serious comorbid conditions, or with extremes of body size, muscle mass, or nutritional status. Calcium 9.5 8.4 - 10.2 mg/dL [facility] Sodium 141 136 - 145 mmol/L [facility] Potassium 4.2 3.4 - 4.9 mmol/L [facility] Chloride 103 99 - 111 mmol/L [facility] CO2 28.2 21.0 - 32.0 mmol/L [facility] Albumin 4.2 3.5 - 5.0 g/dL [facility] Total Protein 7.4 6.1 - 8.0 g/dL [facility] Bilirubin Total 0.9 0.2 - 1.2 mg/dL [facility] Alkaline Phosphatase 67 40 - 150 U/L [facility] AST 50(H) 5 - 34 U/L [facility] ALT 68(H) 0 - 55 u/L [facility] Blood 05/12/2022 11:2 2 AM CDT 05/12/2022 11:23 AM CDT Comment:- Narrative [facility] - 05/12/2022 11:45 AM CDT Testing performed at [facility], [address] [place] [address]. CLIA [id number] Phone [phone] Ext [phone] ??Viticulturist Shant Rivas MD us Catarina Maurer MD LAB BLOOD ORDERABLES Final Result [facility] [address] [place] [address] [phone] * (ABNORMAL) Lipid panel (05/12/2022 11:22 AM CDT) Cholesterol 143 0 - 200 mg/dL [facility] Comment:Cholesterol preferre d <200 mg/dL. Clinical correlation is essential. Triglycerides 88 0 - 200 mg/dL [facility] HDL Cholesterol 43(L) >60 mg/dL [facility] LDL, Calculated 82.4 mg/dL [facility] Comment: <100 ?Optimal 100-129 ? Near Optimal/Above Optimal 130-159 ? Borderline High 160-189 ? High >or =190 ?Very High Cholesterol/HDL Ratio 3.3 [facility] Comment:HDL:Chol ratio Low R isk 1:3.3-1:4.3, Clinical Correlation essential. Blood 05/12/2022 11:2 2 AM CDT 05/12/2022 11:23 AM CDT Comment:- Narrative [facility] - 05/12/2022 11:45 AM CDT Testing performed at [facility], [address] [place] [address]. CLIA [id number] Phone [phone] Ext [phone] ??Viticulturist Shant Rivas MD Catarina Maurer MD LAB BLOOD ORDERABLES Final Result Performing Organization Address [facility] Co de Phone Number [facility] [address] [place] [address] [phone] * High sensitivity CRP (05/12/2022 11:22 AM CDT) CRP 4.11 <5.00 mg/L [facility] Blood 05/12/2022 11:2 2 AM CDT 05/12/2022 11:23 AM CDT Comment:- Narrative [facility] - 05/12/2022 11:45 AM CDT Testing performed at [facility], [address] [place] [address]. CLIA [id number] Phone [phone] Ext [phone] ??Viticulturist Shant Rivas MD Catarina Maurer MD LAB BLOOD ORDERABLES Final Result Performing Organization Address [facility] Co de Phone Number [facility] [address] [place] [address] [phone] * Sedimentation rate (05/12/2022 11:22 AM CDT) Pathologist [facility] Sedimentation Rate 19 0 - 20 mm/hr [facility] Blood 05/12/2022 11:2 2 AM CDT 05/12/2022 11:23 AM CDT Comment:- Narrative [facility] - 05/12/2022 11:55 AM CDT Testing performed at [facility], [address] [place] [address]. CLIA [id number] Phone [phone] Ext [phone] ??Viticulturist Shant Rivas MD Catarina Maurer MD LAB BLOOD ORDERABLES Final Result Performing Organization Address City/State/[facility] Co de Phone Number [facility] [address] [place] [address] [phone] * CBC auto differential (05/12/2022 11:22 AM CDT) Pathologist [facility] WBC 7.8 3.1 - 11.0 x10^3/uL [facility] RBC 4.91 4.29 - 5.55 x10^6/uL [facility] HGB 15.7 13.4 - 16.9 g/dL [facility] HCT 46.6 38.0 - 50.0 % [facility] MCV 94.9 82.0 - 98.0 fL [facility] MCH 32.0 27.2 - 33.3 pg [facility] MCHC 33.7 32.0 - 36.0 g/dL [facility] RDW-CV 12.2 11.4 - 14.2 % [facility] SD-RDW 42.0 36.0 - 47.0 fL [facility] Platelets 173 147 - 370 x10^3/uL [facility] MPV 10.2 9.1 - 12.1 fL [facility] NE% 53.9 42.0 - 76.0 % [facility] %LYMPH 33.6 13.5 - 48.0 % [facility] %MONO 10.1 3.5 - 14.0 % [facility] % Eosinophils 1.7 0.0 - 7.0 % [facility] % Basophils 0.4 0.0 - 1.5 % [facility] Imm Gran Relative 0.3 0.0 - 1.0 % [facility] NE# 4.2 1.2 - 7.3 x10^3/uL [facility] Lymphs # 2.6 0.7 - 3.5 x10^3/uL [facility] Randall# 0.8 0.2 - 0.9 x10^3/uL [facility] Eosinophil # 0.1 0.0 - 0.5 x10^3/uL [facility] Baso# 0.0 0.0 - 0.1 x10^3/uL [facility] Imm Gran Absolute 0.02 0.00 - 0.10 x10^3/uL [facility] NRBC % 0.00 0.00 - 0.10 /100 WBC [facility] Blood 05/12/2022 11:2 2 AM CDT 05/12/2022 11:23 AM CDT Comment:- Narrative [facility] - 05/12/2022 11:37 AM CDT Testing performed at [facility], [address] [place] [address]. CLIA [id number] Phone [phone] Ext [phone] ??Viticulturist Shant Rivas MD us Catarina Maurer MD LAB BLOOD ORDERABLES Final Result [facility] [address] [place] [address] [phone] documented in this encounter Visit Diagnoses Diagnosis Intractable abdominal pain- Primary Abdominal pain, unspecified site Other osteoarthritis involving multiple joints Well adult exam Routine general medical examination at a health care facility Congestion of nasal sinus Other diseases of nasal cavity and sinuses Dyspnea, unspecified type Encounter for long-term current use of medication Chronic bilateral low back pain with left-sided sciatica Spinal stenosis, unspecified spinal region Hyperlipidemia, unspecified hyperlipidemia type COVID-19 Elevated liver enzymes Nonspecific elevation of levels of transaminase or lactic acid dehydrogenase (LDH) Hepatomegaly Intractable abdominal pain Abdominal pain, unspecified site Other osteoarthritis involving multiple joints documented in this encounter Additional Health Concerns Assessment Noted Time A fall risk assessment has been complete d for the patient 05/12/2022 9:40 AM CDT A Body Mass Index follow-up plan has been documented for the patient 05/12/2022 10:14 AM CDT documented as of this encounter Care Teams Finishing Room Operator Relationship Specialty Start Date End Date Catarina Maurer MD [facility] [place] [address] PCP - General Firearms Instructor 05/12/22 11/25/22 Lacey Perdue MD [address] [phone] Referring Physician Infectious Diseases 06/28/18 documented as of this encounter
--- OUTSIDE RECORDS SUMMARY | 2024-11-23 00:24 | XMS_ITS | Encounter Summary ---
Author Organization [employer] Address [address] [place] [address] Care Team Providers Care Deicer Element Winder Machine Name Role Phone Lacey Perdue MD Unavailable Jose Manuel Villegas MD Primary Care Provider Reason for Visit * Reason Comments Flank Pain Encounter Details Date Type Department Care Team (Late st Contact Info) Description 08/10/2022 6:11 PM CDT - 08/10/2022 9:11 PM CDT Emergency [facility] [place] Emergency Department [address] [place] [address] Michael Cain MD Chronic right-sided low back pain without sciatica (Primary Dx); Strain of abdominal muscle, subsequent encounter Discharge Disposition: Home - Discharge to Home [...] Sign Reading Time Taken Comments Blood Pressure 145/84 08/10/2022 9:00 PM CDT Pulse 72 08/10/2022 9:00 PM CDT Temperature 36.7 ??C (98 ??F) 08/10/2022 9:00 PM CDT Respiratory Rate 14 08/10/2022 9:00 PM CDT Oxygen Saturation 97% 08/10/2022 9:00 PM CDT Inhaled Oxygen Concentration - - Weight 90.7 kg (200 lb) 08/10/2022 6:22 PM CDT Height 180.3 cm (5' 11 ) 08/10/2022 6:22 PM CDT Body Mass Index 27.89 08/10/2022 6:22 PM CDT documented in this encounter Functional Status * Are you deaf or do you have serious difficulty hearing? Answer Date of Assessment Author No 10/25/2017 2:00 PM Deonna Padilla, GEORGE * Are you blind or do you have serious difficulty seeing, even when wearing glasses? Answer Date of Assessment Author No 10/25/2017 2:00 PM Deonna Padilla, ELECTRO MECHANICAL ASSEMBLER * Do you have serious difficulty walking or climbing stairs? (5 years old or older) Answer Date of Assessment Author No 10/25/2017 2:00 PM Deonna Padilla, ELECTRO MECHANICAL ASSEMBLER * Do you have difficulty dressing or bathing? (5 years old or older) Answer Date of Assessment Author No 10/25/2017 2:00 PM Deonna Padilla, ELECTRO MECHANICAL ASSEMBLER * Because of a physical, mental, or [...] Deonna Padilla ARNP documented in this encounter Discharge Instructions * Attachments The following attachments cannot be sent through Care Everywhere. * Back Pain (Bulgarian) * Back Care Basics: General Info (Bulgarian) documented in this encounter Medications at Time of Discharge albuterol 108 (90 Base) MCG/ACT inhaler Inhale 2 (two) puffs into the lungs every 4 (four) hours as needed for Wheezing. 1 each 1 11/19/2021 Ascorbic Acid (VITAMIN C) 500 MG tablet Take 500 mg by mouth daily. aspirin 325 MG tablet Take 325 mg by mouth. diclofenac sodium (VOLTAREN) 50 MG EC tablet Take 1 (one) tablet by mouth 2 (two) times daily. 60 tablet 5 05/12/2022 ferrous sulfate 324 (65 FE) MG EC [...] 220 mg by mouth daily. amitriptyline (ELAVIL) 100 MG tablet Take 1 (one) tablet by mouth nightly. 30 tablet 3 05/12/2022 3 baclofen (LIORESAL) 10 MG tablet Take 1 (one) tablet by mouth 3 (three) times daily as needed. 90 tablet 05/12/2022 2 docusate sodium (COLACE) 100 MG capsule Take 1 (one) capsule by mouth 2 (two) times daily as needed for Constipation. 30 capsule 2 05/12/2022 2 NARCAN 4 MG/0.1ML LIQD nasal liquid USE DIRECTED. 2 each 1 01/15/2020 2 oxyCODONE-acetamin ophen (PERCOCET) 10-325 MG per tablet TAKE ONE TABLET BY MOUTH EVERY 6 HOURS NEEDED FOR PAIN. NEEDS TO LAST 30 DAYS 60 tablet 07/14/2022 2 tamsulosin HCl (FLOMAX) 0.4 MG capsule Take 1 (one) capsule by mouth daily. 30 capsule 3 10/14/2021 2 documented as of this encounter ED Notes * Michael Cain MD - 08/10/2022 8:56 PM CDT Chief Complaint: Flank Pain Subjective Patient is a 66-year-old man who presents to the emergency department with complaints of right lower flank pain. His symptoms have been ongoing for several months. He has been to the emergency department and his primary physician several times for this issue. Multiple CT scans have been nonacute. He denies any fevers, chills, sweats, nausea, vomiting, diarrhea or constipation. Flank pain radiatesto his right lower quadrant. He further denies any dysuria, urgency, frequency or hematuria. The pain is worse upon lying on the right side of his body. He believes the pain began after starting a workout routine involving abdominal workouts including planking. He is on oxycodone for pain control but this does not seem to be controlling his pain adequately. On presentation, he does not appear to be in distress. Past Medical History: Diagnosis Date ??? Arthritis ??? Back injury ??? Chronic back pain greater than 3 months duration ??? GERD (gastroesophageal reflux disease) ??? Hepatic steatosis 07/28/2021 ??? Migraines ??? Osteomyelitis of ankle or foot, acute, right (HCC) 2017 ??? Shoulder injury ??? Substance abuse (HCC) ??? Wrist disorder Past Surgical History: Procedure Laterality Date ??? Colonoscopy w/ polypectomy 12/07/2018 ??? Elbow surgery Left metal plate from elbow to forearm ??? Esophagogastroduodenoscopy 12/18/2020 ??? Fracture surgery Left no sx ??? Incision and drainage foot Right Infection right foot and ankle ??? Joint replacement Left Left hip replacement ??? Nasal septoplasty w/ turbinoplasty 08/29/2021 Dr. Wolff ??? Rotator cuff repair Left ??? Shoulder surgery Right repair tendon ??? Spine surgery 3 4 5 lumbar, pinched nerves ??? Us guided needle placement 05/15/2021 Family History Problem Relation Age of Onset ??? Dementia Mother Social History Tobacco Use ??? Smoking status: Never Smoker ??? Smokeless tobacco: Never Used Vaping Use ??? Vaping Use: Never used Substance Use Topics ??? Alcohol use: No ??? Drug use: Yes Comment: Arthritis pain No Known Allergies Review of Systems Musculoskeletal: Positive for back pain. Negative for gait problem, joint swelling, myalgias, neck pain and neck stiffness. All other systems reviewed and are negative. Objective Vitals ED Triage Vitals [08/10/22 1822] BP: 130/86 Heart Rate: 85 Respiratory Rate: 16 Temp: 36.6 ??C (97.9 ??F) Temp src: Temporal SpO2: 96 % Weight: 90.7 kg (200 lb) Height: 1.803 m (5' 11 ) Physical Exam Constitutional: Appearance: Normal appearance. Eyes: Conjunctiva/sclera: Conjunctivae normal. Pupils: Pupils are equal, round, and reactive to light. Cardiovascular: Rate and Rhythm: Normal rate. Pulses: Normal pulses. Heart sounds: Normal heart sounds. Pulmonary: Effort: Pulmonary effort is normal. Breath sounds: Normal breath sounds. Abdominal: General: Abdomen is flat. Bowel sounds are normal. There is no distension. Palpations: Abdomen is soft. Tenderness: There is no abdominal tenderness. There is no guarding or rebound. Musculoskeletal: Cervical back: Normal range of motion and neck supple. No rigidity or tenderness. Comments: Pain on deep palpation of the right low back muscles with normal range of motion in the thoracic and lumbar spine and no pain on palpation of the thoracic and lumbar spine, no step-offs palpated on spine exam, motor strength fully intact with normal range of motion of all his extremities Neurological: Mental Status: He is alert. Results Review Assessment Medical Decision Making Impression 1. Chronic right-sided low back pain without sciatica 2. Strain of abdominal muscle, subsequent encounter Plan Physical examination is consistent with a musculoskeletal etiology. He is currently on oxycodone for pain control. Patient interview lasted approximately 30 minutes including a full review of his history and it is determined that this is likely musculoskeletal, most likely related to his abdominal workouts. Various stretching exercises are demonstrated to the patient with some relief in the process. He is given intramuscular Toradol in the emergency department and subsequently deemed appropriate for discharge with outpatient follow-up with his PCP for referral to physical therapy for further evaluation and treatment. Disposition: Discharge New Prescriptions No Prescriptions at Discharge. Follow-Up Providers Jose Manuel Villegas MD Specialty: Sports Nutritionist, Family Medicine Relationship: PCP - General Next Steps: Schedule an appointment as soon as possible for a visit in 3 day(s) Instructions: To get a referral to Physical Therapy Additional Documentation Procedures Michael Cain MD 08/10/222099 * Kellie Ng, RN - 08/10/2022 6:18 PM CDT Patient arrives ambulatory, alone, arriving via POV. Patient states that he has been here several times for the same c/o . Patient states that he was diagnosed with a fatty growth on his colon. Andthen 2-3 weeks later he went to his PCP in [place], and he was better. Then about 1-2 weeks ago, he states that the pain has come back, and it's much worse than it has ever been. Patient states that th e pain is in his lower right abdomen, and it is so bad, but that he isn't able to absolutely tell you where the pain will be. It seems to come between the right flank and the right lower abdomen, moving from the flank into the pelvlic area. documented in this encounter Plan of Treatment Not on file documented as of this encounter Goals Goal Patient Goal Type Associated Problems Recent Progress Patient-Stated? Author Blood Pressure < 140/90 Blood Pressure 134/86(2022 2:25 PM CDT) No Leonard Jasso, ANGIE documented as of this encounter Procedures Procedure Name Priority Date/Time Associated Diagnosis Comments URINALYSIS WITH REFLEX MICROSCOPIC TESTING Routine 08/10/2022 6:31 PM CDT documented in this encounter Results * Urinalysis with Reflx Microscopic Testing (08/10/2022 6:31 PM CDT) Specimen, UA CLN CATCH 08/10/2022 6:31 PM CDT [facility] Color, UA YELLOW 08/10/2022 6:43 PM CDT [facility] Clarity, UA CLEAR CLEAR 08/10/2022 6:43 PM CDT [facility] Glucose, UA NEG NEG mg/dL 08/10/2022 6:43 PM [facility] Bilirubin, UA NEG NEG 08/10/2022 6:43 PM [facility] Ketones, UA NEG NEG mg/dL 08/10/2022 6:43 PM [facility] Specific [place], UA 1.020 1.002 - 1.020 08/10/2022 6:43 PM [facility] Blood, UA NEG NEG 08/10/2022 6:43 PM [facility] PH, UA 7.0 5.0 - 8.0 08/10/2022 6:43 PM [facility] Protein, UA NEG NEG mg/dL 08/10/2022 6:43 PM [facility] Urobilinogen,U A 0.2 0.1 - 1.0 [Emmanuel'U ]/dL 08/10/2022 6:43 PM [facility] Nitrite, UA NEG NEG 08/10/2022 6:43 PM [facility] Leukocyte Esterase, UA NEG NEG 08/10/2022 6:43 PM [facility] Comment NONE 08/10/2022 6:43 PM [facility] Urine URINE SPECIMEN FROM URINARY BLADDER / Unknown 08/10/2022 6:31 PM T 08/10/2022 6:40 PM [facility] Michael Cain MD URINE ORDERABLES Final Result [facility] [address] [place], [place] [phone] [facility] [address] [place] [address] documented in this encounter Visit Diagnoses Diagnosis Chronic right-sided low back pain without sciatica- Primary Strain of abdominal muscle, subsequent encounter documented in this encounter Administered Medications Inactive Administered Medications - up to 3 most recent administrations Medication Order MAR Action Action Date Dose Rate Site ketorolac (TORADOL) injection 30 mg, Intramuscular, ONCE, On 08/10/22 at 2130, For 1 dose, If given IV, push over a minimum of 15 seconds Given 08/10/2022 8:56 PM CDT 30 mg Right Deltoid documented in this encounter Active and Recently Administered Medications Times are shown in CDT. Scheduled Medication Order 08/08/2022 08/09/2022 08/10/2022 ketorolac (TORADOL) injection (COMPLETED) 30 mg, Intramuscular, ONCE, On 08/10/22 at 2130, For 1 dose, If given IV, push over a minimum of 15 seconds 2055 (Given - Provid er: Latonia Rivas RN) documented in this encounter Additional Health Concerns Assessment Noted Time A fall risk assessment has been complete d for the patient 05/12/2022 9:40 AM CDT A Body Mass Index follow-up plan has been documented for the patient 05/12/2022 10:14 AM CDT documented as of this encounter Care Teams Deicer Element Winder Machine Relationship Specialty Start Date End Date Jose Manuel Villegas MD [facility] [place] [address] PCP - General Sports Nutritionist 05/12/22 11/25/22 Lacey Perdue MD [address] [phone] Referring Physician Infectious Diseases 06/28/18 documented as of this encounter
--- OUTSIDE RECORDS SUMMARY | 2024-11-23 00:24 | XMS_ITS | Encounter Summary ---
Author Organization [employer] Address [address] [place] [address] Care Team Providers Care Service Center Technician Name Role Phone Lacey Perdue MD Unavailable [phone] Michell Trevizo MD Primary Care Provider [phone] Reason for Visit * Reason Comments Medication Refill Encounter Details Date Type Department Care Team (Late st Contact Info) Description 02/10/2022 Refill [facility] Internal Medicine [address] [place] [phone] Michell Trevizo MD [address] [place] [id number] Social History Tobacco Use Types Packs/Day [...] of Assessment Author No 10/25/2017 2:00 PM SYSTEMS TESTER Deonna Galvan, GEORGE * Are you blind or do you have serious difficulty seeing, even when wearing glasses? Answer Date of Assessment Author No 10/25/2017 2:00 PM Deonna Padilla, EXTRUDING DEPARTMENT SUPERVISOR * Do you have serious difficulty walking or climbing stairs? (5 years old or older) Answer Date of Assessment Author No 10/25/2017 2:00 PM Deonna Padilla, EXTRUDING DEPARTMENT SUPERVISOR * Do you have difficulty dressing or bathing? (5 years old or older) Answer Date of Assessment Author No 10/25/2017 2:00 PM Deonna Padilla, EXTRUDING DEPARTMENT SUPERVISOR * Because of a physical, mental, or [...] documented for the patient 12/23/2021 12:30 PM SYSTEMS TESTER documented as of this encounter Care Teams Service Center Technician Relationship Specialty Start Date End Date Michell Trevizo MD [address] [address] PCP - General Internal Medicine 05/29/21 02/25/22 Lacey Perdue MD [address] [phone] Referring Physician Infectious Diseases 06/28/18 documented as of this encounter
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
--- OUTSIDE RECORDS SUMMARY | 2024-11-23 00:24 | XMS_ITS | Encounter Summary ---
Author Organization [employer] Address [address] [place] [address] Care Team Providers Care Sanitation Truck Driver Name Role Phone Lacey Perdue MD Unavailable Jose Manuel Villegas MD Primary Care Provider Reason for Visit * Reason Comments Follow-up 2 week follow up Encounter Details Date Type Department Care Team (Latest Contact Info) Description 06/09/2022 10:45 AM CDT Office Visit [address] [phone] Jose Manuel Villegas MD [address] [place] [phone] Hyperglycemia (Primary Dx); Chronic pain syndrome; Urinary hesitancy Social History Tobacco Use Types Packs/Day Years [...] suspected to have Coronavirus/COVID-19? No / Unsure 06/09/2022 8:19 AM CDT documented as of this encounter Last Filed Vital Signs Vital Sign Reading Time Taken Comments Blood Pressure 130/80 06/09/2022 9:29 AM CDT Pulse 69 06/09/2022 9:29 AM CDT Temperature - - Respiratory Rate - - Oxygen Saturation 96% 06/09/2022 9:29 AM CDT Inhaled Oxygen Concentration - - Weight 88.5 kg (195 lb) 06/09/2022 9:29 AM CDT Height - - Body Mass Index 27.2 06/09/2022 8:53 AM CDT documented in this encounter Functional [...] documented in this encounter Progress Notes * Jose Manuel Villegas MD - 06/09/2022 10:45 AM CDT [facility] [address] [place] [address] Date: 06/09/2022 Name: Edilberto Hawley : 1955 PCP: Jose Manuel Villegas MD SUBJECTIVE: Edilberto Hawley is a 66 y.o. significant medical history of generalized osteoarthritis, chronic back pain, osteomyelitis of ankle, presents to clinic for 2-week follow-up. Patient takes oxycodone 1 tablet every 6 hours as needed for pain. In addition he takes baclofen, diclofenac. He request refills of medications. I am not comfortable with 120 tablets/month. Patient made aware. If he is to continue practicing in our clinic, we will only prescribe 60 tablets over 1 month. Drug contract, UDS established on previous visit. Referral to pain management is pending. Today were reviewed lab work, investigative procedures. He is noted to be hyperglycemic, glucose level 175. Patient is complaining of urinary hesitancy, worsening pain, generalized. We discussed obtaining a PSA, rheumatoid factor. Labs otherwise unremarkable. Underwent shoulder x-ray, revealing moderate degenerative change inthe left shoulder without fracture or malalignment. Postsurgical changes x-ray of wrist showing diffuse degenerative change of the left wrist without fracture or malalignment. Underwent a cortisone injection to the shoulder per orthopedic surgery. Scheduled to follow-up with a wrist specialist in the next week. In addition, patient noted intractable right lower quadrant abdominal discomfort over the last 10weeks. Seen at an outside facility with CT scan showing a questionable growth along his right colon. He does not have those records and cannot describe any further detail. He describes intractable right lower quadrant discomfort, almost a burning sensation, none radiational, 8 out of 10 at times, without alleviating or aggravating factors. Follow-up CT scan done in our office unremarkable. He denies fevers, shakes, chills, nausea, decreased appetite, weight loss, hematemesis, hematochezia. No history of colon cancer. Has had routine colonoscopies in the past without sinister findings. Review of systems negative x12 points except discussed in HPI. I reviewed previous medical records and spoke to the patient about their current medical condition. OBJECTIVE: Pulse 69 Wt 88.5 kg (195 lb) SpO2 96% BMI 27.20 kg/m?? Body mass index is 27.2 kg/m??. PHYSICAL EXAM: General appearance - alert, well appearing, and in no distress Skin - normal coloration, no rashes Current Outpatient Medications: ??? albuterol 108 (90 Base) MCG/ACT inhaler, Inhale 2 (two) puffs into the lungs every 4 (four) hours as needed for Wheezing. ??? amitriptyline (ELAVIL) 100 MG tablet, Take 1 (one) tablet by mouth nightly. ??? Ascorbic Acid (VITAMIN C) 500 MG tablet, Take 500 mg by mouth daily. ??? aspirin 325 MG tablet, Take 325 mg by mouth. ??? baclofen (LIORESAL) 10 MG tablet, Take 1 (one) tablet by mouth 3 (three) times daily as needed. ??? diclofenac sodium (VOLTAREN) 50 MG EC tablet, Take 1 (one) tablet by mouth 2 (two) times daily. ??? docusate sodium (COLACE) 100 MG capsule, Take 1 (one) capsule by mouth 2 (two) times daily as needed for Constipation. ??? Multiple Vitamins-Minerals (ONE DAILY MULTIVITAMIN ADULT PO), Take by mouth. ??? NARCAN 4 MG/0.1ML LIQD nasal liquid, USE DIRECTED. ??? oxyCODONE-acetaminophen (PERCOCET) 10-325 MG per tablet, Take 1 (one) tablet by mouth every 6 (six) hours as needed for Pain. Needs to last 30 days ??? Probiotic Product (SOLUBLE FIBER/PROBIOTICS PO), Take 1 tablet by mouth daily. ??? tamsulosin HCl (FLOMAX) 0.4 MG capsule, Take 1 (one) capsule by mouth daily. ??? vitamin D (CHOLECALCIFEROL) 1000 units tablet, Take 1,000 Units by mouth daily. ??? zinc sulfate (ZINCATE) 220 (50 Zn) MG capsule, Take 220 mg by mouth daily. ??? predniSONE (DELTASONE) 10 MG tablet, 4 tabs po qam x 3 days, then 3 tabs po qam x 3 days, then 2 tabs po qam x 3 days, 1 tab po qam x 3 days, then 1/2 tab po qam x 4 days ASSESSMENT/PLAN: #1 chronic pain, secondary to generalized osteoarthritis #2 hyperglycemia #3 urinary hesitancy Start tapering dose of steroids for the next several days. Refill monthly analgesic in 2 days. Obtain rheumatoid factor. Hemoglobin A1c for hyperglycemia, glucose noted at 175. PSA for urinary hesitancy. Refer to urology if elevated. Problem List Items Addressed This Visit Chronic pain Relevant Medications predniSONE (DELTASONE) 10 MG tablet Other Relevant Orders Rheumatoid factor Other Visit Diagnoses Hyperglycemia - Primary Relevant Orders Hemoglobin A1c Urinary hesitancy Relevant Orders PSA Follow up in about 6 months (around 12/10/2022). Patient given verbal and/or written education and agrees and acknowledges understanding of the treatment plan. Signed: Jose Manuel Villegas MD 06/09/2022 9:52 AM This document was dictated using [employer]; resp therapist variances may occur documented in this encounter Plan of Treatment Not on file documented as of this encounter Goals Goal Patient Goal Type Associated Problems Recent Progress Patient-Stated? Author Blood Pressure < 140/90 Blood Pressure 134/86(2022 2:25 PM CDT) No Leonard Jasso, ANGIE documented as of this encounter Results * (ABNORMAL) Rheumatoid factor (06/09/2022 10:10 AM CDT) Rheumatoid Factor 33(H) 0 - 30 IU/mL [facility] Blood 06/09/2022 10:1 0 AM CDT 06/09/2022 10:24 AM CDT Comment:- Narrative [facility] - 06/09/2022 11:25 AM CDT Testing performed at [facility], [address] [place] [address]. CLIA [id number] Phone [phone] Ext [phone] ??Hat Designer Shant Rivas MD us Jose Manuel Villegas MD LAB BLOOD ORDERABLES Final Result [facility] [address] [place] [address] [phone] * PSA (06/09/2022 10:10 AM CDT) PSA 0.28 0.00 - 4.00 ng/mL [facility] Comment:Testing performed by Chemiluminescent Microparticle Immunoassay (CMIA) on [employer]. Blood 06/09/2022 10:1 0 AM CDT 06/09/2022 10:24 AM CDT Comment:- Narrative [facility] - 06/09/2022 11:47 AM CDT Testing performed at [facility], [address] [place] [address]. CLIA [id number] Phone [phone] Ext [phone] ??Hat Designer Shant Rivas MD Jose Manuel Villegas MD LAB BLOOD ORDERABLES Final Result Performing Organization Address [facility] Co de Phone Number [facility] [address] [place] [address] [phone] * Hemoglobin A1c (06/09/2022 10:10 AM CDT) Hemoglobin A1C 6.4 % [facility] Comment: Nondiabetic Patient: ? 4.0 - 6.0 % Controlled Diabetic Patient: ?? < 7.0 % Clinical correlation is essential Estimated Avg Glucose 137 mg/dL [facility] Blood 06/09/2022 10:1 0 AM CDT 06/09/2022 10:24 AM CDT Comment:- Narrative [facility] - 06/09/2022 10:35 AM CDT Testing performed at [facility], [address] [place] [address]. CLIA [id number] Phone [phone] Ext [phone] ??Hat Designer Shant Rivas MD Jose Manuel Villegas MD LAB BLOOD ORDERABLES Final Result Performing Organization Address [facility] Co de Phone Number [facility] [address] [place] [address] [phone] documented in this encounter Visit Diagnoses Diagnosis Hyperglycemia- Primary Other abnormal glucose Chronic pain syndrome Urinary hesitancy documented in this encounter Additional Health Concerns Assessment Noted Time A fall risk assessment has been complete d for the patient 05/12/2022 9:40 AM CDT A Body Mass Index follow-up plan has been documented for the patient 05/12/2022 10:14 AM CDT documented as of this encounter Care Teams Sanitation Truck Driver Relationship Specialty Start Date End Date Jose Manuel Villegas MD [address] [place] [address] PCP - General Medical Support Specialist 05/12/22 11/25/22 Lacey Perdue MD [address] [phone] Referring Physician Infectious Diseases 06/28/18 documented as of this encounter
--- OUTSIDE RECORDS SUMMARY | 2024-11-23 00:24 | XMS_ITS | Encounter Summary ---
Author Organization [employer] Address [address] [place] [address] Care Team Providers Care Custodian Blood Bank Name Role Phone Lacey Perdue MD Unavailable [phone] Michell Trevizo MD Primary Care Provider [phone] Reason for Visit * Reason Onset Date Comments Amitriptyline update 01/06/2022 Encounter Details Date Type Department Care Team (Late st Contact Info) Description 01/06/2022 Telephone [facility] Internal Medicine [address] [place] [address] Meme Chen LPN [address] [place] [address] Amitriptyline update Social History Tobacco Use Types Packs/Day Years [...] COVID-19? No / Unsure 12/23/2021 11:28 AM DRESSAGE INSTRUCTOR documented as of this encounter Functional Status * Are you deaf or do you have serious difficulty hearing? Answer Date of Assessment Author No 10/25/2017 2:00 PM DRESSAGE INSTRUCTOR Deonna Galvan, ASSISTANT BUSINESS MANAGER * Are you blind or do you have serious difficulty seeing, even when wearing glasses? Answer Date of Assessment Author No 10/25/2017 2:00 PM DRESSAGE INSTRUCTOR Deonna Galvan y S, ASSISTANT BUSINESS MANAGER * Do you have serious difficulty walking or climbing stairs? (5 years old or older) Answer Date of Assessment Author No 10/25/2017 2:00 PM DRESSAGE INSTRUCTOR Deonna Galvan S, ASSISTANT BUSINESS MANAGER * Do you have difficulty dressing or bathing? (5 years old or older) Answer Date of Assessment Author No 10/25/2017 2:00 PM DRESSAGE INSTRUCTOR Deonna Galvan S, ASSISTANT BUSINESS MANAGER * Because of a physical, mental, or emotional condition, do you have difficulty doing errands alone such as visiting a doctor's office or shopping? (15 years old or older) Answer Date of Assessment Author No 10/25/2017 2:00 PM DRESSAGE INSTRUCTOR Deonna Galvan, ASSISTANT BUSINESS MANAGER documented as of this encounter Mental Status * Because of a physical, mental, or emotional condition, do you have serious difficulty concentrating, remembering, or making decisions? (5 years old or older) Answer Entry Date Author No 10/25/2017 2:00 PM DRESSAGE INSTRUCTOR Deonna Galvan, ASSISTANT BUSINESS MANAGER documented in this encounter Miscellaneous Notes * Telephone Encounter - Meme Chen LPN - 01/06/2022 2:44 PM CST Patient called to let our office know that he only took the 150mg amitriptyline for a couple of days. He said it was too strong and he did not feel right on this. He is only taking 100mg. He wanted to make you aware. Meme Chen LPN SAGE INSTRUCTOR documented in this encounter Plan of Treatment [...] documented for the patient 12/23/2021 12:30 PM DRESSAGE INSTRUCTOR documented as of this encounter Care Teams Custodian Blood Bank Relationship Specialty Start Date End Date Michell Trevizo MD [address] [place] [address] PCP - General Internal Medicine 05/29/21 02/25/22 Lacey Perdue MD [address] [phone] Referring Physician Infectious Diseases 06/28/18 documented as of this encounter
--- OUTSIDE RECORDS SUMMARY | 2024-11-23 00:24 | XMS_ITS | Encounter Summary ---
Author Organization [employer] Address [address] [place] [address] Care Team Providers Care Director Digital Strategy Name Role Phone Lacey Perdue MD Unavailable Jose Manuel Villegas MD Primary Care Provider Reason for Referral * Referral (Routine) - Closed Specialty Diagnoses / Procedures Referred By Contac t Referred To Contact Rheumatology Diagnoses Arthritis Jose Manuel Villegas MD [address] [place] [address] Phone: tel: fax: [facility] [address] [place] [id number] Phone: tel: fax: Referral ID Status Reason Start Date Expiration Date V isits Requested Visits Authorized [id number] Closed Specialty Services Required 09/02/2022 03/05/2024 1 1 Encounter Details Date Type Department Care Team (Late st Contact Info) Description 09/02/2022 Orders Only [facility] [address] [place] [phone] Penny Carey, RN [address] [place] [address] Arthritis (Primary Dx) Social History Tobacco Use Types [...] Name Type Priority Associated Diagnoses Order Schedule Amb Ref to Rheumatology Outpatient Referral Routine Arthritis Ordered: 09/02/2022 documented as of this encounter Goals Goal Patient Goal Type Associated Problems Recent Progress Patient-Stated? Author Blood Pressure < 140/90 Blood Pressure 134/86(2022 2:25 PM CDT) No Leonard Jasso APRN documented as of this encounter Visit Diagnoses Diagnosis Arthritis- Primary Arthropathy, unspecified, site unspecified documented in this encounter Additional Health Concerns Assessment Noted Time A fall risk assessment has been complete d for the patient 05/12/2022 9:40 AM CDT A Body Mass Index follow-up plan has been documented for the patient 05/12/2022 10:14 AM CDT documented as of this encounter Care Teams Director Digital Strategy Relationship Specialty Start Date End Date Jose Manuel Villegas MD [facility] [place] [address] PCP - General Lime Kiln And Recausticizing Operator 05/12/22 11/25/22 Lacey Perdue MD [address] [phone] Referring Physician Infectious Diseases 06/28/18 documented as of this encounter
--- OUTSIDE RECORDS SUMMARY | 2024-11-23 00:24 | XMS_ITS | Encounter Summary ---
Author Organization [employer] Address [address] [place] [address] Care Team Providers Care Airport Operations Crew Member Name Role Phone Lacey Perdue MD Unavailable Patient, None Per Primary Care Provider Unavaila ble Reason for Visit * Reason Comments Follow-up Continuing issues wi th left wrist, schedule surgery? Encounter Details Date Type Department Care Team (Late st Contact Info) Description 04/14/2023 2:45 PM CDT Office Visit [facility] Plastic Surgery [address] [place] [phone] Estevan Tripp MD [address] [place] [address] Slac (scapholunate advanced collapse) of wrist, left (Primary Dx); Ganglion cyst of dorsum of left wrist Social History Tobacco Use Types Packs/Day Years [...] No 10/25/2017 2:00 PM Deonna Padilla S, CODING QUALITY COORDINATOR * Are you blind or do you have serious difficulty seeing, even when wearing glasses? Answer Date of Assessment Author No 10/25/2017 2:00 PM Deonna Padilla S, CODING QUALITY COORDINATOR * Do you have serious difficulty walking or climbing stairs? (5 years old or older) Answer Date of Assessment Author No 10/25/2017 2:00 PM Deonna Padilla S, CODING QUALITY COORDINATOR * Do you have difficulty dressing or bathing? (5 years old or older) Answer Date of Assessment Author No 10/25/2017 2:00 PM DENTAL PRACTITIONER Deonna Galvan S, CODING QUALITY COORDINATOR * Because of a physical, mental, or emotional condition, do you have difficulty doing errands alone such as visiting a doctor's office or shopping? (15 years old or older) Answer Date of Assessment Author No 10/25/2017 2:00 PM Deonna Padilla S, CODING QUALITY COORDINATOR documented as of this encounter Mental Status * Because of a physical, mental, or emotional condition, do you have serious difficulty concentrating, remembering, or making decisions? 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 He has continued to have pain again. We had a lengthy and extensive discussion the office today that he may benefit from a repeat injection as he did have some benefit with an injection before in the past. Wrist denervation surgery will need to be done under general anesthesia and he will need medical clearance but he currently does nothave a medical provider. I told him to work on getting a primary care physician who could potentially clear him for surgery for now we will do an injection. He also has swelling in the area of the radiocarpal joint which appears to be some synovitis we discussed possible aspiration about as well. He agreed with our plan. The risks of steroid injections were discussed including but not limited to blood sugar changes in diabetics, skin hypopigmentation, fat atrophy and possible tendon rupture. The patient elected to proceed with the steroid injection today. We injected 1 cc of betamethasone with local anesthesia to the left radiocarpal wrist joint. He tolerated the injection. We also used an 18-gauge needle to aspirate fluid in the area of synovitis on the dorsal radial wrist and significant amount of mucous fluid was expressed. A light gauze wrap wasapplied. He will follow-up with me in a couple months once he is established with a primary care physician. If he has good relief of his pain with the injection for at least 6 months he can get a repeat injection at that time. Otherwise we discussed possible wrist denervation. documented in this encounter Plan of Treatment Not on file documented as of this encounter Goals Goal Patient Goal Type Associated Problems Recent Progress Patient-Stated? Author Blood Pressure < 140/90 Blood Pressure 134/86(2022 2:25 PM CDT) No Leonard Jasso APRN documented as of this encounter Visit Diagnoses Diagnosis Slac (scapholunate advanced collapse) of wrist, left- Primary Ganglion cyst of dorsum of left wrist documented in this encounter Additional Health Concerns Assessment Noted Time A fall risk assessment has been complete d for the patient 09/17/2022 9:09 AM CDT A Body Mass Index follow-up plan has been documented for the patient 09/17/2022 9:29 AM CDT documented as of this encounter Care Teams Airport Operations Crew Member Relationship Specialty Start Date End Date Patient, None Per PCP - General 03/04/23 Lacey Perdue MD [address] [phone] Referring Physician Infectious Diseases 06/28/18 documented as of this encounter
--- OUTSIDE RECORDS SUMMARY | 2024-11-23 00:24 | XMS_ITS | Encounter Summary ---
Author Organization [employer] Address [address] [place] [address] Care Team Providers Care Radiology Rn Name Role Phone Lacey Perdue MD Unavailable Jose Manuel Villegas MD Primary Care Provider Reason for Visit * Reason Comments Shoulder Pain Encounter Details Date Type Department Care Team (Late st Contact Info) Description 06/09/2022 8:30 AM CDT Clinical Support [facility] [place] [address] Shital Dumont, PAMacC [address] [place] [address] Radha Chandler, RTR [address] [place] [address] Left wrist pain; Left shoulder pain, unspecified chronicity Social History Tobacco Use Types Packs/Day Years [...] of Assessment Author No 10/25/2017 2:00 PM CIVIL ENGINEER LAND DEVELOPMENT Cole, Am y S, TRANSACTION MANAGER * Are you blind or do you have serious difficulty seeing, even when wearing glasses? Answer Date of Assessment Author No 10/25/2017 2:00 PM CIVIL ENGINEER LAND DEVELOPMENT Galvan, Am y S, TRANSACTION MANAGER * Do you have serious difficulty walking or climbing stairs? (5 years old or older) Answer Date of Assessment Author No 10/25/2017 2:00 PM CIVIL ENGINEER LAND DEVELOPMENT Galvan, Am y S, TRANSACTION MANAGER * Do you have difficulty dressing or bathing? (5 years old or older) Answer Date of Assessment Author No 10/25/2017 2:00 PM CIVIL ENGINEER LAND DEVELOPMENT Galvan, Am y S, TRANSACTION MANAGER * Because of a physical, mental, or emotional condition, do you have difficulty doing errands alone such as visiting a doctor's office or shopping? (15 years old or older) Answer Date of Assessment Author No 10/25/2017 2:00 PM CIVIL ENGINEER LAND DEVELOPMENT Galvan, Am y S, TRANSACTION MANAGER documented as of this encounter Mental Status * Because of a physical, mental, or emotional condition, do you have serious difficulty concentrating, remembering, or making decisions? (5 years old or older) Answer Entry Date Author No 10/25/2017 2:00 PM CIVIL ENGINEER LAND DEVELOPMENT Cole Am y S, TRANSACTION MANAGER documented in this encounter Plan of Treatment Not on file documented as of this encounter Goals Goal Patient Goal Type Associated Problems Recent Progress Patient-Stated? Author Blood Pressure < 140/90 Blood Pressure 134/86(2022 2:25 PM CDT) No Leonard Jasso APRN documented as of this encounter Procedures Procedure Name Priority Date/Time Associated Diagnosis Comments XR WRIST MIN 3 VIEWS Routine 06/09/2022 8:44 AM CDT Left wrist pain XR SHOULDER MIN 2 VIEWS Routine 06/09/2022 8:39 AM CDT Left shoulder pain, unspecified chronicity documented in this encounter Results * XR Wrist Min 3 Views (06/09/2022 8:44 AM CDT) Anatomical Region Laterality Modality Forearm, Wrist, Hand Computed Ra diography 06/09/2022 8:44 AM CDT Narrative 06/09/2022 8:55 AM CDT [address] ??[address] DIAGNOSTIC IMAGING Name: EDILBERTO DURAND ??Ordering Phys: SHITAL DUMONT Date of : 1955 ?Gender: M ??Accession Number: [id number] EXAM DESCRIPTION: XR WRIST MIN 3 VIEWSLT REASON FOR STUDY: Chronic wrist pain COMPARISON: No prior TECHNIQUE: Left wrist three views. FINDINGS: Alignment of the left wrist is within normal limits with diffuse degenerative changes without fracture or bone destruction. ?? Degenerative changes are most marked at the 1st CMC joint. No joint effusion. ??Soft tissues are within normal limits. IMPRESSION: Diffuse degenerative change of the left wrist without fracture or malalignment. THIS IS AN ELECTRONICALLY VERIFIED FINAL REPORT 06/09/2022 8:52 AM - Electronically signed by Dayanna Durbin M.D. Procedure Note Dayanna Durbin MD - 06/09/[address] [address] DIAGNOSTIC IMAGING Name: EDILBERTO DURAND Ordering Phys: SHITAL DUMONT Date of : 1955 Gender: M Accession Number: [id number] EXAM DESCRIPTION: XR WRIST MIN 3 VIEWSLT REASON FOR STUDY: Chronic wrist pain COMPARISON: No prior TECHNIQUE: Left wrist three views. FINDINGS: Alignment of the left wrist is within normal limits with diffuse degenerative changes without fracture or bone destruction. Degenerative changes are most marked at the 1st CMC joint. No joint effusion. Soft tissues are within normal limits. IMPRESSION: Diffuse degenerative change of the left wrist without fracture or malalignment. THIS IS AN ELECTRONICALLY VERIFIED FINAL REPORT 06/09/2022 8:52 AM - Electronically signed by Dayanna Durbin M.D. Shital B Vandette PA-C IMG DIAGNOSTIC IMAGING O RDERABLES Final Result * XR Shoulder Min 2 Views L (06/09/2022 8:39 AM CDT) Anatomical Region Laterality Modality Computed Radiogr aphy 06/09/2022 8:39 AM CDT Narrative 06/09/2022 8:57 AM CDT [address] ??[address] DIAGNOSTIC IMAGING Name: EDILBERTO DURAND ??Ordering Phys: ERIK SHITAL B Date of : 1955 ?Gender: M ??Accession Number: [id number] EXAM DESCRIPTION: XR SHOULDER MIN 2 VIEWS [id number] REASON FOR STUDY: Chronic left shoulder pain. COMPARISON: No prior TECHNIQUE: Left shoulder four views. FINDINGS: Alignment of the left shoulder is within normal limits. ??There are postsurgical changes of the left shoulder with 2 orthopedic anchors present. ??There is no acute fracture. ??There is moderate glenohumeral and acromioclavicular joint space narrowing without intra-articular body. Soft tissues are within normal limits. ??The left lung is clear. IMPRESSION: 1. 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 2. Postsurgical changes of the left shoulder most likely representing previous rotator cuff repair. THIS IS AN ELECTRONICALLY VERIFIED FINAL REPORT 06/09/2022 8:54 AM - Electronically signed by Dayanna Durbin M.D. Procedure Note Dayanna Durbin MD - 06/09/[address] [address] DIAGNOSTIC IMAGING Name: EDILBERTO DURAND Ordering Phys: ERIK SHITAL B Date of : 1955 Gender: M Accession Number: [id number] EXAM DESCRIPTION: XR SHOULDER MIN 2 VIEWS [id number] REASON FOR STUDY: Chronic left shoulder pain. COMPARISON: No prior TECHNIQUE: Left shoulder four views. FINDINGS: Alignment of the left shoulder is within normal limits. There are postsurgical changes of the left shoulder with 2 orthopedic anchors present. There is no acute fracture. There is moderate glenohumeral and acromioclavicular joint space narrowing without intra-articular body. Soft tissues are within normal limits. The left lung is clear. IMPRESSION: 1. 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 2. Postsurgical changes of the left shoulder most likely representing previous rotator cuff repair. THIS IS AN ELECTRONICALLY VERIFIED FINAL REPORT 06/09/2022 8:54 AM - Electronically signed by Dayanna Durbin M.D. Shital Dumont PA-C IMG DIAGNOSTIC IMAGING O RDERABLES Final Result documented in this encounter Visit Diagnoses Diagnosis Left wrist pain Pain in joint, forearm Left shoulder pain, unspecified chronicity documented in this encounter Additional Health Concerns Assessment Noted Time A fall risk assessment has been complete d for the patient 05/12/2022 9:40 AM CDT A Body Mass Index follow-up plan has been documented for the patient 05/12/2022 10:14 AM CDT documented as of this encounter Care Teams Radiology Rn Relationship Specialty Start Date End Date Jose Manuel Villegas MD [facility] [place] [address] PCP - General Retail Service Lead Merchandiser 05/12/22 11/25/22 Lacey Perdue MD [address] [phone] Referring Physician Infectious Diseases 06/28/18 documented as of this encounter
--- OUTSIDE RECORDS SUMMARY | 2024-11-23 00:24 | XMS_ITS | Encounter Summary ---
Author Organization [employer] Address [address] [place] [address] Care Team Providers Care Seo Engineer Name Role Phone Lacey Perdue MD Unavailable [phone] Michell Trevizo MD Primary Care Provider [phone] Reason for Visit * Reason Comments Medication Refill Encounter Details Date Type Department Care Team (Late st Contact Info) Description 12/31/2021 Refill [facility] Internal Medicine [address] [place] [phone] Michell Trevizo MD [address] [place] [address] Social History Tobacco Use Types Packs/Day [...] COVID-19? No / Unsure 12/23/2021 11:28 AM RUBBER MIXER documented as of this encounter Functional Status * Are you deaf or do you have serious difficulty hearing? Answer Date of Assessment Author No 10/25/2017 2:00 PM RUBBER MIXER Deonna Galvan S, DIRECTOR OF PRODUCT MANAGEMENT * Are you blind or do you have serious difficulty seeing, even when wearing glasses? Answer Date of Assessment Author No 10/25/2017 2:00 PM RUBBER MIXER Deonna Galvan y S, DIRECTOR OF PRODUCT MANAGEMENT * Do you have serious difficulty walking or climbing stairs? (5 years old or older) Answer Date of Assessment Author No 10/25/2017 2:00 PM RUBBER MIXER Deonna Galvan y S, DIRECTOR OF PRODUCT MANAGEMENT * Do you have difficulty dressing or bathing? (5 years old or older) Answer Date of Assessment Author No 10/25/2017 2:00 PM JOHN Galvan Am y S, DIRECTOR OF PRODUCT MANAGEMENT * Because of a physical, mental, or emotional condition, do you have difficulty doing errands alone such as visiting a doctor's office or shopping? (15 years old or older) Answer Date of Assessment Author No 10/25/2017 2:00 PM Deonna Padilla, DIRECTOR OF PRODUCT MANAGEMENT documented as of this encounter Mental Status * Because of a physical, mental, or emotional condition, do you have serious difficulty concentrating, remembering, or making decisions? (5 years old or older) Answer Entry Date Author No 10/25/2017 2:00 PM Deonna Padilla, DIRECTOR OF PRODUCT MANAGEMENT documented in this encounter Miscellaneous Notes * Telephone Encounter - Nasir Pena RN - 12/31/2021 3:57 PM CST Refill baclofen last filled 11/20. Last office visit 12/23 Med pended ER MIXER documented in this encounter Plan of Treatment [...] documented for the patient 12/23/2021 12:30 PM RUBBER MIXER documented as of this encounter Care Teams Seo Engineer Relationship Specialty Start Date End Date Michell Trevizo MD [address] [place] [address] PCP - General Internal Medicine 05/29/21 02/25/22 Lacey Perdue MD [address] [phone] Referring Physician Infectious Diseases 06/28/18 documented as of this encounter
--- OUTSIDE RECORDS SUMMARY | 2024-11-23 00:24 | XMS_ITS | Encounter Summary ---
Author Organization [employer] Address [address] [place] [address] Care Team Providers Care Floor Covering Contractor Name Role Phone Lacey Perdue MD Unavailable Jose Manuel Villegas MD Primary Care Provider Reason for Visit * Reason Comments Follow-up 3m Encounter Details Date Type Department Care Team ([facility] st Contact Info) Description 09/17/2022 9:00 AM CDT Office Visit [facility] [address] [place] [phone] Jose Manuel Villegas MD [address] [place] [phone] Chronic neck pain (Primary Dx); Healthcare maintenance Social History Tobacco Use Types Packs/Day Years [...] Sign Reading Time Taken Comments Blood Pressure 144/90 09/17/2022 9:05 AM CDT Pulse 71 09/17/2022 9:05 AM CDT Temperature - - Respiratory Rate - - Oxygen Saturation 98% 09/17/2022 9:05 AM CDT Inhaled Oxygen Concentration - - Weight 87.8 kg (193 lb 9.6 oz) 09/17/2022 9:05 A M CDT Height - - Body Mass Index 27 08/10/2022 6:22 PM CDT documented in this [...] documented in this encounter Progress Notes * Jadon Díaz - 09/17/2022 9:00 AM CDT Body mass index is 27 kg/m??. Se received nutritional counseling in the following manner: reassuring about nutrition Se received physical activity counseling in the following manner: recommendation to exercise * Jose Manuel Villegas MD - 09/17/2022 9:00 AM CDT [facility] Department of Family Medicine [address] [place] [id number] Date: 09/17/2022 Name: Edilberto Hawley : 1955 PCP: Jose Manuel Villegas MD SUBJECTIVE: Edilberto Hawley is a 66 y.o. male, who carries a significant medical history of generalized osteoarthritis, chronic back pain, osteomyelitis of ankle, presenting to clinic for 3-month follow-up.Previous to following with us, patient took oxycodone, 1 tablet every 6 hours, as needed for pain. In addition he takes baclofen, diclofenac. He request refills of medications. On our previous visit I informed patient that I was not comfortable with 120 tablets/month. Patient was made aware, and was agreeable to 30 to 60 tablets/month. He agreed to a drug contract, UDS established on previous visit. He was referred to pain management. He presents to clinic irate, threatening, abusive towards myself and staff. I was unable to calm the patient down and ended this visit as it was not productive. OBJECTIVE: BP (!) 144/90 Pulse 71 Wt 87.8 kg (193 lb 9.6 oz) SpO2 98% BMI 27.00 kg/m?? Body mass indexis 27 kg/m??. PHYSICAL EXAM: General appearance - alert, angry, acute distress Skin - normal coloration, no rashes [...] TABLET BY MOUTH THREE TIMES DAILY NEEDED ??? ferrous sulfate 324 (65 FE) MG EC tablet, Take 324 mg by mouth 3 (three) times daily with meals. ??? Multiple Vitamins-Minerals (ONE DAILY MULTIVITAMIN ADULT PO), Take by mouth. ??? oxyCODONE-acetaminophen (PERCOCET) 10-325 MG per tablet, TAKE ONE TABLET BY MOUTH EVERY 6 HOURSAS NEEDED FOR PAIN. NEEDS TO LAST 30 DAYS ??? Probiotic Product (SOLUBLE FIBER/PROBIOTICS PO), Take 1 tablet by mouth daily. ??? vitamin D (CHOLECALCIFEROL) 1000 units tablet, Take 1,000 Units by mouth daily. ??? zinc sulfate (ZINCATE) 220 (50 Zn) MG capsule, Take 220 mg by mouth daily. ??? diclofenac (VOLTAREN) 25 MG EC tablet, 1 (one) tablet 3 (three) times daily. ??? diclofenac sodium (VOLTAREN) 50 MG EC tablet, Take 1 (one) tablet by mouth 2 (two) times daily. ??? docusate sodium (COLACE) 100 MG capsule, Take 1 (one) capsule by mouth 2 (two) times daily as needed for Constipation. ASSESSMENT/PLAN: Chronic pain Healthcare maintenance Patient received flu shot during this visit. Visit ended by myself as patient continued with threatening language, and remained irate, inconsolable. Problem List Items Addressed This Visit None Visit Diagnoses Chronic neck pain - Primary Healthcare maintenance No follow-ups on file. Patient given verbal and/or written education and agrees and acknowledges understanding of the treatment plan. Signed: Jose Manuel Villegas MD 09/17/2022 9:27 AM This document was dictated using Dragon; dental resident variances may occur * Penny Carey RN - 09/17/2022 9:00 AM CDT [facility] Department of Family Practice [address] [place] [phone] Visit Date: 09/17/2022 MEDICARE ANNUAL WELLNESS VISIT This visit must occur >1 year after patient's Initial Medicare Annual Wellness Visit. This visit may only occur if not done elsewhere. Subjective: Edilberto Hawley is a 66 y.o. male who presents to [facility] for his Medicare Wellness Visit. Patient Care Team: Jose Manuel Villegas MD as PCP - General (Control Room Agent) Lacey Perdue MD as Referring Physician (Infectious Diseases) HEALTH HISTORY: Is the patient on an Opioid Medication? yes Current Outpatient Medications (Pain Medications) Medication Sig ??? aspirin 325 MG tablet Take 325 mg by mouth. ??? oxyCODONE-acetaminophen (PERCOCET) 10-325 MG per tablet TAKE ONE TABLET BY MOUTH EVERY 6 HOURS NEEDED FOR PAIN. NEEDS TO LAST 30 DAYS Current Outpatient Medications (Other) Medication Sig ??? albuterol 108 (90 Base) MCG/ACT inhaler Inhale 2 (two) puffs into the lungs every 4 (four) hours as needed for Wheezing. ??? amitriptyline (ELAVIL) 100 MG tablet Take 1 (one) tablet by mouth nightly. ??? Ascorbic Acid (VITAMIN C) 500 MG tablet Take 500 mg by mouth daily. ??? baclofen (LIORESAL) 10 MG tablet TAKE ONE TABLET BY MOUTH THREE TIMES DAILY NEEDED ??? ferrous sulfate 324 (65 FE) MG EC tablet Take 324 mg by mouth 3 (three) times daily with meals. ??? Multiple Vitamins-Minerals (ONE DAILY MULTIVITAMIN ADULT PO) Take by mouth. ??? Probiotic Product (SOLUBLE FIBER/PROBIOTICS PO) Take 1 tablet by mouth daily. ??? vitamin D (CHOLECALCIFEROL) 1000 units tablet Take 1,000 Units by mouth daily. ??? zinc sulfate (ZINCATE) 220 (50 Zn) MG capsule Take 220 mg by mouth daily. ??? diclofenac (VOLTAREN) 25 MG EC tablet 1 (one) tablet 3 (three) times daily. ??? diclofenac sodium (VOLTAREN) 50 MG EC tablet Take 1 (one) tablet by mouth 2 (two) times daily. ??? docusate sodium (COLACE) 100 MG capsule Take 1 (one) capsule by mouth 2 (two) times daily as needed for Constipation. Is there evidence of Opioid Use Disorder? no Have non-opioid therapy benefits been assessed previously? yes If not, a brief assessment today reveals that the patient needs to return for a specific appointment to fully assess the benefits from all other non-opioid pain therapies. Patient Active Problem List Diagnosis ??? Acute [...] of left rotator cuff ??? Hyperlipidemia ??? detention current use of opiate analgesic ??? Osteoarthritis of lumbar spine ??? Pain of left lower extremity ??? Sciatica ??? Sensory hearing loss, bilateral ??? Hepatic steatosis Past Surgical History: Procedure Laterality Date ??? [...] nerves ??? Us guided needle placement 05/15/2021 Current Outpatient Medications Medication Sig ??? albuterol 108 (90 Base) MCG/ACT inhaler Inhale 2 (two) puffs into the lungs every 4 (four) hours as needed for Wheezing. ??? amitriptyline (ELAVIL) 100 MG tablet Take 1 (one) tablet by mouth nightly. ??? Ascorbic Acid (VITAMIN C) 500 MG tablet Take 500 mg by mouth daily. ??? aspirin 325 MG tablet Take 325 mg by mouth. ??? baclofen (LIORESAL) 10 MG tablet TAKE ONE TABLET BY MOUTH THREE TIMES DAILY NEEDED ??? ferrous sulfate 324 (65 FE) MG EC tablet Take 324 mg by mouth 3 (three) times daily with meals. ??? Multiple Vitamins-Minerals (ONE DAILY MULTIVITAMIN ADULT PO) Take by mouth. ??? oxyCODONE-acetaminophen (PERCOCET) 10-325 MG per tablet TAKE ONE TABLET BY MOUTH EVERY 6 HOURS NEEDED FOR PAIN. NEEDS TO LAST 30 DAYS ??? Probiotic Product (SOLUBLE FIBER/PROBIOTICS PO) Take 1 tablet by mouth daily. ??? vitamin D (CHOLECALCIFEROL) 1000 units tablet Take 1,000 Units by mouth daily. ??? zinc sulfate (ZINCATE) 220 (50 Zn) MG capsule Take 220 mg by mouth daily. ??? diclofenac (VOLTAREN) 25 MG EC tablet 1 (one) tablet 3 (three) times daily. ??? diclofenac sodium (VOLTAREN) 50 MG EC tablet Take 1 (one) tablet by mouth 2 (two) times daily. ??? docusate sodium (COLACE) 100 MG capsule Take 1 (one) capsule by mouth 2 (two) times daily as needed for Constipation. No current facility-administered medications for this visit. No Known Allergies Family History Problem Relation Age of Onset ??? Dementia Mother SCREENINGS: Depression Screening: Depression Screen: Negative Screening based on last PHQ-2 Total Score: 0 (09/17/2022 9:09 AM) PHQ-2 Report (nv) Fall Risk Assessment: Fall Risk Assessment Fall Risk: Is Patient Ambulatory?: Yes Have you FALLEN in the past year?: (!) Any Fall with Injury Do you feel UNSTEADY when standing or walking?: No Fall Risk Score:: 5 Activities of Daily Living (ADL's): ?? Can you dress independently?Yes ?? Can you keep yourself clean and groomed independently? Yes ?? Can you walk independently (as opposed to being bedridden)? Yes Functional Assessment: ?? Are you able to do your own shopping? Yes ?? Are you able to do your own housekeeping?Yes ?? Are you able to manage your medications? Yes ?? Are you able to handle finances? Yes ?? Are you able to hear without problems? Yes Home Safety Assessment: ?? Have you removed all tripping hazards like throw rugs?Yes ?? Do you have adequate lighting in your home and use night lights? Yes ?? Do you have working smoke detectors? Yes LIFESTYLE HISTORY: Social History Socioeconomic History ??? Marital status: Spouse name: Javier ??? Number of children: 3 ??? Years of education: Not on file ??? Highest education level: Not on file Occupational History ??? Occupation: Retired Tobacco Use ??? Smoking status: Never ??? Smokeless tobacco: Never Vaping Use ??? Vaping Use: Never used Substance and Sexual Activity ??? Alcohol use: No ??? Drug use: Yes Comment: Arthritis pain ??? Sexual activity: Not on file Other Topics Concern ??? Adopted Not Asked ??? Service Not Asked ??? Are you having sex? Not Asked ??? Bike Helmet Not Asked ??? Are you trying to get ? Not Asked ??? Occupational Exposure Not Asked ??? Caffeine Use Yes Comment: 2 cans coke weekly ??? Other Not Asked ??? Exercise No ??? Seat Belt/Car Seat Not Asked ??? Hobbies Not Asked ??? Special Diet No ??? Living Arrangement Not Asked Social History Narrative ??? Not on file Social Determinants of Health Financial Resource Strain: Not on file Food Insecurity: Not on file Transportation Needs: Not on file Physical Activity: Not on file Stress: Not on file Social Connections: Not on file Intimate Partner Violence: Not on file Housing Stability: Not on file Health Maintenance Topic Date Due ??? COVID-19 Vaccine (1) Never done ??? Foot Exam Never done ??? Eye (Ophthalmology) Exam Never done ??? Zoster (Shingles) Vaccine 50+ (1 of 2) Never done ??? Pneumococcal Vaccines 65+ (2 - PCV) 01/21/2019 ??? Lab-Urine Microalbumin 05/29/2022 ??? Annual Wellness Visit 10/14/2022 ??? Lab-HgA1C 12/10/2022 ??? Lab-Urine Drug Screen 12/23/2022 ??? Lab-Lipids 05/12/2023 ??? Controlled Substance Agreement-Annual Review 05/12/2023 ??? Tetanus/Pertussis Vaccine Teen/Adult (2 - Td or Tdap) 04/16/2027 ??? Colorectal Cancer Screening 12/07/2028 ??? Lab-Hepatitis C Screening Completed ??? Influenza Vaccine Completed ??? Meningococcal Conjugate Vaccine Aged Out ??? HIB Vaccine Aged Out ??? IPV Vaccine Aged Out ??? Hepatitis A Vaccine Aged Out ??? HPV Vaccine (F:9-26YO,M: 9-22) Aged Out : HEALTH MAINTENANCE DUE: Health Maintenance Due Topic Date Due ??? COVID-19 Vaccine (1) Never done ??? Foot Exam Never done ??? Eye (Ophthalmology) Exam Never done ??? Zoster (Shingles) Vaccine 50+ (1 of 2) Never done ??? Pneumococcal Vaccines 65+ (2 - PCV) 01/21/2019 ??? Lab-Urine Microalbumin 05/29/2022 ??? Annual Wellness Visit 10/14/2022 Immunization History Administered Date(s) Administered ??? Influenza (FLUAD) aIIV3 11/03/2019 ??? Influenza (FLUAD) aIIV4 PREFILLED SYRINGE 09/17/2022 ??? Influenza H1N1 preservative free 08/11/2011 ??? Influenza, inactivated, quadrivalent, ALL AGES 6 months and older, single dose syringe/vial 08/09/2017, 09/15/2018, 08/23/2020 ??? Influenza, unspecified formulation 08/16/2012, 08/23/2015, 08/13/2016 ??? Pneumococcal Polysaccharide-23 (Pneumovax 23) PPSV23 01/21/2018 ??? Tdap 04/16/2017 ??? Tetanus and Diphtheria (Tenivac) Td 05/15/2010 Objective: BP (!) 144/90 Pulse 71 Wt 87.8 kg (193 lb 9.6 oz) SpO2 98% BMI 27.00 kg/m?? BP Readings from Last 3 Encounters: 09/17/22 (!) 144/90 08/10/22 145/84 06/09/22 130/80 Wt Readings from Last 3 Encounters: 09/17/22 87.8 kg (193 lb 9.6 oz) 08/10/22 90.7 kg (200 lb) 06/09/22 88.5 kg (195 lb) Ht Readings from Last 3 Encounters: 08/10/22 1.803 m (5' 11 ) 06/09/22 1.803 m (5' 11 ) 05/12/22 1.803 m (5' 11 ) Body mass index is 27 kg/m??. Lab Results Component Value Date WBC 7.8 05/12/2022 HGB 15.7 05/12/2022 HCT 46.6 05/12/2022 PLT 173 05/12/2022 CHOL 143 05/12/2022 TRIG 88 05/12/2022 HDL 43 (L) 05/12/2022 LDLCALC 82.4 05/12/2022 ALT 68 (H) 05/12/2022 AST 50 (H) 05/12/2022 NA 141 05/12/2022 K 4.2 05/12/2022 CL 103 05/12/2022 BUN 16 05/12/2022 GFREST 74 (L) 05/12/2022 GFRESTIMATE 103 08/27/2021 CO2 28.2 05/12/2022 TSH 1.541 12/23/2021 PSA 0.28 06/09/2022 INR 1.0 08/27/2021 GLU 175 (H) 05/12/2022 HGBA1C 6.4 06/09/2022 MICROALBUR 1.53 05/29/2021 Mental Status: Alert and oriented to person, place, time and situation? Yes Assessment: 1. Chronic neck pain 2. Healthcare maintenance Plan: During the course of the visit Edilberto was educated and counseled about appropriate screening and preventive services. At the conclusion of today's visit, the patient was provided a written copy of his After Visit Summary. Jose Manuel Villegas MD [id number] documented in this encounter Plan of Treatment Not on file documented as of this encounter Goals Goal Patient Goal Type Associated Problems Recent Progress Patient-Stated? Author Blood Pressure < 140/90 Blood Pressure 134/86(2022 2:25 PM CDT) Leonard Montiel APRN documented as of this encounter Visit Diagnoses Diagnosis Chronic neck pain- Primary Cervicalgia Healthcare maintenance Routine general medical examination at a health care facility documented in this encounter Additional Health Concerns Assessment Noted Time A fall risk assessment has been complete d for the patient 09/17/2022 9:09 AM CDT A Body Mass Index follow-up plan has been documented for the patient 09/17/2022 9:29 AM CDT documented as of this encounter Care Teams Floor Covering Contractor Relationship Specialty Start Date End Date Jose Manuel Villegas MD [address] [place] [address] PCP - General Control Room Agent 05/12/22 11/25/22 Lacey Perdue MD [address] [phone] Referring Physician Infectious Diseases 06/28/18 documented as of this encounter
--- OUTSIDE RECORDS SUMMARY | 2024-11-23 00:24 | XMS_ITS | Encounter Summary ---
Author Organization [employer] Address [address] [place] [address] Care Team Providers Care Vehicle Operator Technician Name Role Phone Lacey Perdue MD Unavailable [phone] Michell Trevizo MD Primary Care Provider [phone] Reason for Visit * Reason Comments Medication Refill Encounter Details Date Type Department Care Team (Late st Contact Info) Description 02/02/2022 Refill [facility] Internal Medicine [address] [place] [phone] Michell Trevizo MD [address] [place] [phone] Social History Tobacco Use Types Packs/Day [...] of Assessment Author No 10/25/2017 2:00 PM POLICE OFFICER Deonna Galvan, GEORGE * Are you blind or do you have serious difficulty seeing, even when wearing glasses? Answer Date of Assessment Author No 10/25/2017 2:00 PM Deonna Padilla, GETTERER * Do you have serious difficulty walking or climbing stairs? (5 years old or older) Answer Date of Assessment Author No 10/25/2017 2:00 PM Deonna Padilla, GETTERER * Do you have difficulty dressing or bathing? (5 years old or older) Answer Date of Assessment Author No 10/25/2017 2:00 PM Deonna Padilla, GETTERER * Because of a physical, mental, or [...] documented for the patient 12/23/2021 12:30 PM POLICE OFFICER documented as of this encounter Care Teams Vehicle Operator Technician Relationship Specialty Start Date End Date Michell Trevizo MD [address] [place] [address] PCP - General Internal Medicine 05/29/21 02/25/22 Lacey Perdue MD [address] [phone] Referring Physician Infectious Diseases 06/28/18 documented as of this encounter
--- OUTSIDE RECORDS SUMMARY | 2024-11-23 00:24 | XMS_ITS | Encounter Summary ---
Author Organization [employer] Address [address] [place] [id number] Care Team Providers Care Sales Donor Recruitment Representative Name Role Phone Lacey Perdue MD Unavailable [phone] Patient, None Per Primary Care Provider Unavaila ble Reason for Visit * Reason Onset Date Comments New PCP 04/02/2022 New PCP Encounter Details Date Type Department Care Team ([facility] st Contact Info) Description 04/02/2022 Telephone [facility] Family Practice [address] [place] [phone] Reema Bull [address] [place] [address] New PCP (New PCP) Social History Tobacco Use Types Packs/Day Years [...] Author No 10/25/2017 2:00 PM Deonna Padilla, FBI SHARPSHOOTER * Do you have serious difficulty walking or climbing stairs? (5 years old or older) Answer Date of Assessment Author No 10/25/2017 2:00 PM Deonna Padilla, FBI SHARPSHOOTER * Do you have difficulty dressing or bathing? (5 years old or older) Answer Date of Assessment Author No 10/25/2017 2:00 PM Deonna Padilla, FBI SHARPSHOOTER * Because of a physical, mental, or [...] Deonna Padilla ARNP documented in this encounter Miscellaneous Notes * Telephone Encounter - Reema Bull - 04/02/2022 9:05 AM CDT Left Message for pt to call and confirm demographics and select new PCP documented in this encounter Plan of Treatment [...] documented for the patient 12/23/2021 12:30 PM HEALTH INFORMATICS ADVISOR documented as of this encounter Care Teams Sales Donor Recruitment Representative Relationship Specialty Start Date End Date Patient, None Per PCP - General 02/26/22 05/11/22 Lacey Perdue MD [address] [facility] [address] [place] [phone] Referring Physician Infectious Diseases 06/28/18 documented as of this encounter
--- OUTSIDE RECORDS SUMMARY | 2024-11-23 00:24 | XMS_ITS | Encounter Summary ---
Author Organization [employer] Address [address] [place] [address] Care Team Providers Care Customer Success Specialist Name Role Phone Lacey Perdue MD Unavailable [phone] Jose Manuel Villegas MD Primary Care Provider Reason for Visit * Reason Onset Date Comments Reschedule 07/14/2022 Encounter Details Date Type Department Care Team (Late st Contact Info) Description 07/14/2022 Telephone [facility] Family Practice [address] [place] [phone] Mia Warren [address] [place] [address] Reschedule Social History Tobacco Use Types Packs/Day Years [...] Author No 10/25/2017 2:00 PM Deonna Padilla, MARKETING SECRETARY * Do you have serious difficulty walking or climbing stairs? (5 years old or older) Answer Date of Assessment Author No 10/25/2017 2:00 PM Deonna Padilla, MARKETING SECRETARY * Do you have difficulty dressing or bathing? (5 years old or older) Answer Date of Assessment Author No 10/25/2017 2:00 PM Deonna Padilla, MARKETING SECRETARY * Because of a physical, mental, or emotional condition, do you have difficulty doing errands alone such as visiting a doctor's office or shopping? (15 years old or older) Answer Date of Assessment Author No 10/25/2017 2:00 PM Deonna Padilla, MARKETING SECRETARY documented as of this encounter Mental Status * Because of a physical, mental, or emotional condition, do you have serious difficulty concentrating, remembering, or making decisions? (5 years old or older) Answer Entry Date Author No 10/25/2017 2:00 PM Deonna Padilla, MARKETING SECRETARY documented in this encounter Miscellaneous Notes * Telephone Encounter - Mia Warren - 07/14/2022 1:41 PM CDT Reschedule appt with Viktoria Jefferson from no show appt on 07/02/22, trans to recept documented in this encounter Plan of Treatment [...] as of this encounter Care Teams Customer Success Specialist Relationship Specialty Start Date End Date Jose Manuel Villegas MD [address] [place] [address] PCP - General Linux Consultant 05/12/22 11/25/22 Lacey Perdue MD [address] [phone] Referring Physician Infectious Diseases 06/28/18 documented as of this encounter
--- OUTSIDE RECORDS SUMMARY | 2024-11-23 00:24 | XMS_ITS | Encounter Summary ---
Author Organization [employer] Address [address] [place] [address] Care Team Providers Care Armature Balancer Name Role Phone Lacey Predue MD Unavailable [phone] Patient, None Per Primary Care Provider Unavaila ble Reason for Visit * Reason Onset Date Comments PT asked if [facility] RX pain meds. He has upcoming TNT LINE SUPERVISOR appt. 04/14/2022 PT asked if [facility] pain meds. He has upcoming TNT LINE SUPERVISOR appt. Encounter Details Date Type Department Care Team (Late st Contact Info) Description 04/14/2022 Telephone [facility] [address] [place] [phone] Mia Warren [address] [place] [address] PT asked if [facility] RX pain meds. He has upcoming TNT LINE SUPERVISOR appt. (PT asked if [facility] RX pain meds. He has upcoming TNT LINE SUPERVISOR appt.) Social History Tobacco Use Types Packs/Day Years [...] Author No 10/25/2017 2:00 PM Deonna Padilla, MERCHANDISE PRESENTATION MANAGER * Are you blind or do you have serious difficulty seeing, even when wearing glasses? Answer Date of Assessment Author No 10/25/2017 2:00 PM JOHN Galvan Am y S, MERCHANDISE PRESENTATION MANAGER * Do you have serious difficulty walking or climbing stairs? (5 years old or older) Answer Date of Assessment Author No 10/25/2017 2:00 PM Deonna Padilla S, MERCHANDISE PRESENTATION MANAGER * Do you have difficulty dressing or bathing? (5 years old or older) Answer Date of Assessment Author No 10/25/2017 2:00 PM Deonna Padilla S, MERCHANDISE PRESENTATION MANAGER * Because of a physical, mental, or emotional condition, do you have difficulty doing errands alone such as visiting a doctor's office or shopping? (15 years old or older) Answer Date of Assessment Author No 10/25/2017 2:00 PM Deonna Padilla, MERCHANDISE PRESENTATION MANAGER documented as of this encounter Mental Status * Because of a physical, mental, or emotional condition, do you have serious difficulty concentrating, remembering, or making decisions? (5 years old or older) Answer Entry Date Author No 10/25/2017 2:00 PM Deonna Padilla, MERCHANDISE PRESENTATION MANAGER documented in this encounter Miscellaneous Notes * Telephone Encounter - Mia Warren - 04/14/2022 12:23 PM CDT PT asked if [facility] RX pain meds. He has upcoming TNT LINE SUPERVISOR appt. documented in this encounter Plan of Treatment [...] documented for the patient 12/23/2021 12:30 PM PROCESSOR GRAIN documented as of this encounter Care Teams Armature Balancer Relationship Specialty Start Date End Date Patient, None Per PCP - General 02/26/22 05/11/22 Lacey Perdue MD [address] [phone] Referring Physician Infectious Diseases 06/28/18 documented as of this encounter
--- OUTSIDE RECORDS SUMMARY | 2024-11-23 00:24 | XMS_ITS | Encounter Summary ---
Author Organization [employer] Address [address] [place] [address] Care Team Providers Care Cd Reactor Operator Head Name Role Phone Lacey Perdue MD Unavailable Jose Manuel Villegas MD Primary Care Provider [phone] Reason for Referral * Referral (Routine) - Closed Specialty Diagnoses / Procedures Referred By Celine almaguer Referred To Contact Orthopedic Surgery Diagnoses Other chronic pain Eden Segundo NP [address] [place] [address] Phone: tel: fax: [facility] [address] [place] [address] Phone: tel: fax: Referral ID Status Reason Start Date Expiration Date V isits Requested Visits Authorized [id number] Closed Specialty Services Required 06/08/2022 12/10/2023 1 1 Encounter Details Date Type Department Care Team (Late st Contact Info) Description 05/28/2022 Transcribe Orders [facility] [address] [place] [phone] Kelsea Linares [address] [place] [phone] Other chronic pain (Primary Dx) Social History Tobacco Use Types [...] Associated Diagnoses Order Schedule Amb Ref to Orthopedic Surgery Outpatient Referral Routine Other chronic pain Ordered: 06/08/2022 documented as of this encounter Goals Goal [...] documented as of this encounter Care Teams Cd Reactor Operator Head Relationship Specialty Start Date End Date Jose Manuel Villegas MD [address] [place] [address] PCP - General Insurance Billing Specialist 05/12/22 11/25/22 Lacey Perdue MD [address] [phone] Referring Physician Infectious Diseases 06/28/18 documented as of this encounter
--- OUTSIDE RECORDS SUMMARY | 2024-11-23 00:24 | XMS_ITS | Encounter Summary ---
Author Organization [employer] Address [address] [place] [address] Care Team Providers Care Advice Clerk Name Role Phone Lacey Perdue MD Unavailable [phone] Michell Trevizo MD Primary Care Provider [phone] Patient, None Per Primary Care Provider Unavaila ble Encounter Details Date Type Department Care Team (Late st Contact Info) Description 02/04/2022 Orders Only [facility] Centralized Scanning Michell Trevizo MD [address] [place] [address] Social History Tobacco Use Types Packs/Day [...] of Assessment Author No 10/25/2017 2:00 PM HR REPRESENTATIVE Deonna Galvan y S, INSULATION FOREMAN * Are you blind or do you have serious difficulty seeing, even when wearing glasses? Answer Date of Assessment Author No 10/25/2017 2:00 PM HR REPRESENTATIVE Cole Am y S, INSULATION FOREMAN * Do you have serious difficulty walking or climbing stairs? (5 years old or older) Answer Date of Assessment Author No 10/25/2017 2:00 PM HR REPRESENTATIVE Cole Am y S, INSULATION FOREMAN * Do you have difficulty dressing or bathing? (5 years old or older) Answer Date of Assessment Author No 10/25/2017 2:00 PM HR REPRESENTATIVE Cole Am y S, INSULATION FOREMAN * Because of a physical, mental, or emotional condition, do you have difficulty doing errands alone such as visiting a doctor's office or shopping? (15 years old or older) Answer Date of Assessment Author No 10/25/2017 2:00 PM HR REPRESENTATIVE Cole Am y S, INSULATION FOREMAN documented as of this encounter Mental Status * Because of a physical, mental, or emotional condition, do you have serious difficulty concentrating, remembering, or making decisions? (5 years old or older) Answer Entry Date Author No 10/25/2017 2:00 PM HR REPRESENTATIVE Deonna Galvan y S, INSULATION FOREMAN documented in this encounter Plan of Treatment Not on file documented as of this encounter Goals Goal Patient Goal Type Associated Problems Recent Progress Patient-Stated? Author Blood Pressure < 140/90 Blood Pressure 134/86(2022 2:25 PM CDT) No Leonard Jasso APRN documented as of this encounter Procedures Procedure Name Priority Date/Time Associated Diagnosis Comments CONTROLLED SUBSTANCE AGREEMENT Routine 12/23/2021 documented in this encounter Results * Controlled Substance Agreement (12/23/2021) us Michell Trevizo MD SUBSTANCE ABUSE ORDERABLES Fin al Result documented in this encounter Visit Diagnoses Not on filedocumented in this encounter Additional Health Concerns Assessment Noted Time A fall risk assessment has been complete d for the patient 08/27/2021 11:36 AM CDT A Body Mass Index follow-up plan has been documented for the patient 12/23/2021 12:30 PM HR REPRESENTATIVE documented as of this encounter Care Teams Advice Clerk Relationship Specialty Start Date End Date Michell Trevizo MD [address] [place] [address] PCP - General Internal Medicine 05/29/21 02/25/22 Patient, None Per PCP - General 02/26/22 05/11/22 Lacey Perdue MD [address] [phone] Referring Physician Infectious Diseases 06/28/18 documented as of this encounter
--- OUTSIDE RECORDS SUMMARY | 2024-11-23 00:24 | XMS_ITS | Encounter Summary ---
Author Organization [employer] Address [address] [place] [address] Care Team Providers Care Communication Skills Instructor Name Role Phone Lacey Perdue MD Unavailable [phone] Patient, None Per Primary Care Provider Unavaila ble Reason for Referral * Diagnostic Radiology (Routine) - Closed Specialty Diagnoses / Procedures Referred By Contac t Referred To Contact Radiology Diagnoses RUQ abdominal pain Procedures US Abdomen Complete Yessenia Loyd MD [address] [place] [address] [place] [address] Phone: tel: fax: Referral ID Status Reason Start Date Expiration Date Visits Re quested Visits Authorized [id number] Closed 03/04/2023 09/04/2024 1 1 Reason for Visit * Reason Comments Initial Consult Right sided pain; we nt to the ER yesterday for abdominal pain. Encounter Details Date Type Department Care Team (Latest Contact Info) Description 03/04/2023 2:00 PM CDT Initial consult [facility] General Surgery [address] [place] [address] [address] [place] [address] Yessenia Loyd MD [address] [place] [address] [address] [place] [address] RUQ abdominal pain (Primary Dx) Social History Tobacco Use [...] Pulse 80 03/04/2023 2:25 PM CDT Temperature - - Respiratory Rate - - Oxygen Saturation 96% 03/04/2023 2:25 PM CDT Inhaled Oxygen Concentration - - Weight 88.6 kg (195 lb 6.4 oz) 03/04/2023 2:25 P M CDT Height - - Body Mass Index 27.25 08/10/2022 6:22 PM CDT documented in this encounter Functional Status * Are you deaf or do you have serious difficulty hearing? Answer Date of Assessment Author No 10/25/2017 2:00 PM Deonna Padilla, PULLEY MAINTAINER * Are you blind or do you have serious difficulty seeing, even when wearing glasses? Answer Date of Assessment Author No 10/25/2017 2:00 PM Deonna Padilla, PULLEY MAINTAINER * Do you have serious difficulty walking or climbing stairs? (5 years old or older) Answer Date of Assessment Author No 10/25/2017 2:00 PM Deonna Padilla, PULLEY MAINTAINER * Do you have difficulty dressing or bathing? (5 years old or older) Answer Date of Assessment Author No 10/25/2017 2:00 PM Deonna Padilla, PULLEY MAINTAINER * Because of a physical, mental, or emotional condition, do you have difficulty doing errands alone such as visiting a doctor's office or shopping? (15 years old or older) Answer Date of Assessment Author No 10/25/2017 2:00 PM Deonna Padilla, PULLEY MAINTAINER documented as of this encounter Mental Status * Because of a physical, mental, or emotional condition, do you have serious difficulty concentrating, remembering, or making decisions? (5 years old or older) Answer Entry Date Author No 10/25/2017 2:00 PM PRACTICING DERMATOLOGIST Deonna Galvan, GEORGE documented in this encounter Progress Notes * Yessenia Loyd MD - 03/04/2023 2:00 PM CDT Surgical Services History and Physical Name: Edilberto Hawley Date of : 1955 Age: 67 y.o. Sex: male Patient's Primary Care Physician: PCP Not Identified Referred by: No ref. provider found Chief Complaint: Chief Complaint Patient presents with ??? Initial Consult Right sided pain; went to the ER yesterday for abdominal pain. HPI: 67 y.o. male presents today with a primary complaint of right upper quadrant pain. He was seenin outside emergency room (those records are unavailable at this time). Patient denies any severe nausea or vomiting. He has had previous upper and lower endoscopies within the last 3 to 4 years. He is here for further exam and care. Past Medical History: No Known Allergies Past Medical History: Diagnosis Date ??? Arthritis [...] nerves ??? Us guided needle placement 05/15/2021 Social History Socioeconomic History ??? Marital status: [...] on file Housing Stability: Not on file Family History Problem Relation Age of Onset ??? Dementia Mother Review of System: REVIEW OF SYSTEMS: CONSTITUTIONAL: No recent weight loss or gain. HEENT: Head, no headaches. Eyes, no vision changes. Ears, no hearing changes. Nose, no excessive rhinorrhea. Mouth and throat, no tenderness or lesions in the oral cavity. NECK: No pain or stiffness. RESPIRATORY: Denies shortness of breath. No sleep apnea. CARDIOVASCULAR: No chest pain. No pacemaker. GASTROINTESTINAL: No nausea or vomiting. No diarrhea or constipation. No blood in the stool. GENITOURINARY: No frequency or burning with urination. No hematuria. NEUROMUSCULAR: Grossly intact. No obvious abnormality noted. ENDOCRINE: No hot or cold intolerance. No excessive bruising or bleeding. INTEGUMENTARY: No open wound. No change in moles. No rashes. The rest of review of systems is unremarkable. Physical Examination: Vitals: 03/04/23 1425 BP: 134/86 Pulse: 80 SpO2: 96% Weight: 88.6 kg (195 lb 6.4 oz) Body mass index is 27.25 kg/m??. GENERAL: 67-year-old in no apparent distress. CHEST: Lungs are clear to auscultation. HEART: Heart is regular rate and rhythm. ABDOMEN: Abdomen is soft. He does have some pain on deep palpation in the right upper quadrant. He says the pain radiates around to the back. There is no severe guarding or rebound. There are no palpable masses/organomegaly. EXTREMITIES: Grossly intact. LAB AND RADIOLOGY: Outside records are pending at time of dictation. No visits with results within 30 Day(s) from this visit. Latest known visit with results is: Admission on 08/10/2022, Discharged on 08/10/2022 Component Date Value ??? Specimen, UA 08/10/2022 CLN CATCH ??? Color, UA 08/10/2022 YELLOW ??? Clarity, UA 08/10/2022 CLEAR ??? Glucose, UA 08/10/2022 NEG ??? Bilirubin, UA 08/10/2022 NEG ??? Ketones, UA 08/10/2022 NEG ??? Specific [place], UA 08/10/2022 1.020 ??? Blood, UA 08/10/2022 NEG ??? PH, UA 08/10/2022 7.0 ??? Protein, UA 08/10/2022 NEG ??? Urobilinogen,UA 08/10/2022 0.2 ??? Nitrite, UA 08/10/2022 NEG ??? Leukocyte Esterase, UA 08/10/2022 NEG ??? Comment 08/10/2022 NONE Impression and Plan: 67-year-old with persistent right upper quadrant pain, question source. This could be a gallbladder issue. I have ordered an ultrasound of the right upper quadrant as well as some labs. We will get those and then contact the patient to discuss things further. We will also be trying to obtain the outside records. Patient understands and is agreeable with the plan. The encounter diagnosis was RUQ abdominal pain. Yessenia Loyd MD, FACS documented in this encounter Plan of Treatment Not on file documented as of this encounter Goals Goal Patient Goal Type Associated Problems Recent Progress Patient-Stated? Author Blood Pressure < 140/90 Blood Pressure 134/86(2022 2:25 PM CDT) No Leonard Jasso APRN documented as of this encounter Results * US Abdomen Complete (03/22/2023 7:40 AM CDT) Anatomical Region Laterality Modality Abdomen Ultrasound 03/22/2023 7:18 AM CDT Impressions 03/22/2023 7:57 AM CDT Unremarkable sonographic evaluation of the abdomen. THIS IS AN ELECTRONICALLY VERIFIED FINAL REPORT 03/22/2023 7:54 AM - Electronically signed by Kerwin Malik M.D. Narrative 03/22/2023 7:[address] AM CDT [address] [place] [address] DIAGNOSTIC IMAGING Name: KIZZY EDILBERTOEd DELONG ??Ordering Phys: YESSENIA LOYD Date of : 1955 ?Gender: M ??Accession Number: [id number] EXAM DESCRIPTION: US ABDOMEN COMPLETE REASON FOR [...] Procedure Note Kerwin Malik MD - 03/22/[address] [place] [address] DIAGNOSTIC IMAGING Name: EDILBERTO HAWLEY Ordering Phys: YESSENIA LOYD Date of : 1955 Gender: M Accession Number: [id number] EXAM DESCRIPTION: US ABDOMEN COMPLETE REASON FOR [...] by Kerwin Malik M.D. Yessenia Loyd MD [facility] US ORDERABLES Final Result documented in this encounter Visit Diagnoses Diagnosis RUQ abdominal pain- Primary Abdominal pain, right upper quadrant RUQ abdominal pain Abdominal pain, right upper quadrant documented in this encounter Additional Health Concerns Assessment Noted Time A fall risk assessment has been complete d for the patient 09/17/2022 9:09 AM CDT A Body Mass Index follow-up plan has been documented for the patient 09/17/2022 9:29 AM CDT documented as of this encounter Care Teams Communication Skills Instructor Relationship Specialty Start Date End Date Patient, None Per PCP - General 03/04/23 Lacey Perdue MD [address] [phone] Referring Physician Infectious Diseases 06/28/18 documented as of this encounter
--- OUTSIDE RECORDS SUMMARY | 2024-11-23 00:24 | XMS_ITS | Encounter Summary ---
Author Organization [employer] Address [address] [place] [address] Care Team Providers Care Data Abstractor Name Role Phone Lacey Perdue MD Unavailable [phone] Jose Manuel Villegas MD Primary Care Provider Reason for Visit * Reason Comments Hand Pain Encounter Details Date Type Department Care Team ([facility] st Contact Info) Description 08/05/2022 10:35 AM CDT Clinical Support [facility] Imaging [address] [place] [phone] Marylou Tripp MD [address] [place] [address] Carmen Marte, RTR [address] [place] [address] Right hand pain; Right wrist pain Social History Tobacco Use Types Packs/Day Years [...] 2:00 PM JOHN Galvan Am y S, PATTERN ASSEMBLER * Are you blind or do you have serious difficulty seeing, even when wearing glasses? Answer Date of Assessment Author No 10/25/2017 2:00 PM MEDICATION SPECIALIST Deonna Galvan y S, PATTERN ASSEMBLER * Do you have serious difficulty walking or climbing stairs? (5 years old or older) Answer Date of Assessment Author No 10/25/2017 2:00 PM MEDICATION SPECIALIST Deonna Galvan y S, PATTERN ASSEMBLER * Do you have difficulty dressing or bathing? (5 years old or older) Answer Date of Assessment Author No 10/25/2017 2:00 PM MEDICATION SPECIALIST Deonna Galvan y S, PATTERN ASSEMBLER * Because of a physical, mental, or emotional condition, do you have difficulty doing errands alone such as visiting a doctor's office or shopping? (15 years old or older) Answer Date of Assessment Author No 10/25/2017 2:00 PM JOHN Galvan Am y S, PATTERN ASSEMBLER documented as of this encounter Mental Status * Because of a physical, mental, or emotional condition, do you have serious difficulty concentrating, remembering, or making decisions? (5 years old or older) Answer Entry Date Author No 10/25/2017 2:00 PM JOHN Galvan Am y S, PATTERN ASSEMBLER documented in this encounter Plan of Treatment Not on file documented as of this encounter Goals Goal Patient Goal Type Associated Problems Recent Progress Patient-Stated? Author Blood Pressure < 140/90 Blood Pressure 134/86(2022 2:25 PM CDT) No Leonard Jasso APRN documented as of this encounter Procedures Procedure Name Priority Date/Time Associated Diagnosis Comments XR WRIST MIN 3 VIEWS Routine 08/05/2022 10:50 AM CDT Right wrist pain XR HAND MIN 3 VIEWS Routine 08/05/2022 1 0:49 AM CDT Right hand pain documented in this encounter Results * XR Wrist Min 3 Views (08/05/2022 10:50 AM CDT) Anatomical Region Laterality Modality Forearm, Wrist, Hand Computed Ra diography 08/05/2022 10:5 0 AM CDT Narrative 08/05/2022 11:54 AM CDT [address] ??[address] DIAGNOSTIC IMAGING Name: EDILBERTO DURAND ??Ordering Phys: MARYLOU TRIPP Date of : 1955 ?Gender: M ??Accession Number: [id number] EXAM DESCRIPTION: XR WRIST MIN 3 VIEWS [...] Procedure Note Kerwin Malik MD - 08/05/[address] [address] DIAGNOSTIC IMAGING Name: EDILBERTO DURAND Ordering Phys: MARYLOU TRIPP Date of : 1955 Gender: M Accession Number: [id number] EXAM DESCRIPTION: XR WRIST MIN 3 VIEWS [...] AM CDT Narrative 08/06/2022 1:41 PM CDT [address] ??[address] DIAGNOSTIC IMAGING Name: KIZZY EDILBERTO DELONG ??Ordering Phys: MARYLOU TRIPP Date of : 1955 ?Gender: M ??Accession Number: [id number] EXAM DESCRIPTION: XR HAND MIN 3 VIEWS [id number] RT RT REASON FOR STUDY: Age: 66 [...] Procedure Note Kerwin Malik MD - 08/06/[address] [address] DIAGNOSTIC IMAGING Name: EDILBERTO DURAND Ordering Phys: MARYLOU TRIPP Date of : 1955 Gender: M Accession Number: [id number] EXAM DESCRIPTION: XR HAND MIN 3 VIEWS [id number] RT RT REASON FOR STUDY: Age: 66 [...] this encounter Visit Diagnoses Diagnosis Right hand pain Pain in limb Right wrist pain Pain in joint, forearm documented in this encounter Additional Health Concerns Assessment Noted Time A fall risk assessment has been complete d for the patient 05/12/2022 9:40 AM CDT A Body Mass Index follow-up plan has been documented for the patient 05/12/2022 10:14 AM CDT documented as of this encounter Care Teams Data Abstractor Relationship Specialty Start Date End Date Jose Manuel Villegas MD [facility] [place] [address] PCP - General Shingle Grader 05/12/22 11/25/22 Lacey Perdue MD [address] [address] Referring Physician Infectious Diseases 06/28/18 documented as of this encounter
--- OUTSIDE RECORDS SUMMARY | 2024-11-23 00:24 | XMS_ITS | Encounter Summary ---
Author Organization [employer] Address [address] [place] [address] Care Team Providers Care Psychological Operations Specialist Name Role Phone Lacey Perdue MD Unavailable [phone] Patient, None Per Primary Care Provider Unavaila ble Reason for Visit * Reason Onset Date Comments PCP 05/11/2022 New PCP, sched ed pt with [facility] 05/12/22 Encounter Details Date Type Department Care Team (Late st Contact Info) Description 05/11/2022 Telephone [facility] [address] [place] [address] Mia Warren [address] [place] [address] PCP (New PCP, scheduled pt with [facility] 05/12/22) Social History Tobacco Use Types Packs/Day Years [...] Author No 10/25/2017 2:00 PM Deonna Padilla, LIQUOR GALLERY OPERATOR * Do you have serious difficulty walking or climbing stairs? (5 years old or older) Answer Date of Assessment Author No 10/25/2017 2:00 PM Deonna Padilla, LIQUOR GALLERY OPERATOR * Do you have difficulty dressing or bathing? (5 years old or older) Answer Date of Assessment Author No 10/25/2017 2:00 PM Deonna Padilla, LIQUOR GALLERY OPERATOR * Because of a physical, mental, or emotional condition, do you have difficulty doing errands alone such as visiting a doctor's office or shopping? (15 years old or older) Answer Date of Assessment Author No 10/25/2017 2:00 PM Deonna Padilla, LIQUOR GALLERY OPERATOR documented as of this encounter Mental Status * Because of a physical, mental, or emotional condition, do you have serious difficulty concentrating, remembering, or making decisions? (5 years old or older) Answer Entry Date Author No 10/25/2017 2:00 PM Deonna Padilla, LIQUOR GALLERY OPERATOR documented in this encounter Miscellaneous Notes * Telephone Encounter - Mia Warren - 05/11/2022 12:14 PM CDT New PCP, scheduled pt with [facility] 05/12/22 documented in this encounter Plan of Treatment [...] documented for the patient 12/23/2021 12:30 PM STEAM CLEANER documented as of this encounter Care Teams Psychological Operations Specialist Relationship Specialty Start Date End Date Patient, None Per PCP - General 02/26/22 05/11/22 Lacey Perdue MD [address] [address] Referring Physician Infectious Diseases 06/28/18 documented as of this encounter
--- OUTSIDE RECORDS SUMMARY | 2024-11-23 00:24 | XMS_ITS | Encounter Summary ---
Author Organization [employer] Address [address] [place] [address] Care Team Providers Care Cold Mill Operator Name Role Phone Lacey Perdue MD Unavailable [phone] Jose Manuel Villegas MD Primary Care Provider Encounter Details Date Type Department Care Team (Latest Contact Info) Description 08/10/2022 Travel Social History Tobacco Use Types Packs/Day [...] of Assessment Author No 10/25/2017 2:00 PM VOLUNTEER PATIENT REPRESENTATIVE Galvan, Am y S, BOILER TESTING TECHNICIAN * Do you have serious difficulty walking or climbing stairs? (5 years old or older) Answer Date of Assessment Author No 10/25/2017 2:00 PM JOHN Galvan Am y S, BOILER TESTING TECHNICIAN * Do you have difficulty dressing or bathing? (5 years old or older) Answer Date of Assessment Author No 10/25/2017 2:00 PM VOLUNTEER PATIENT REPRESENTATIVE Deonna Galvan y S, BOILER TESTING TECHNICIAN * Because of a physical, mental, or emotional condition, do you have difficulty doing errands alone such as visiting a doctor's office or shopping? (15 years old or older) Answer Date of Assessment Author No 10/25/2017 2:00 PM VOLUNTEER PATIENT REPRESENTATIVE Deonna Galvan y S, BOILER TESTING TECHNICIAN documented as of this encounter Mental Status * Because of a physical, mental, or emotional condition, do you have serious difficulty concentrating, remembering, or making decisions? (5 years old or older) Answer Entry Date Author No 10/25/2017 2:00 PM JOHN Galvan Am y S, BOILER TESTING TECHNICIAN documented in this encounter Plan of [...] documented as of this encounter Care Teams Cold Mill Operator Relationship Specialty Start Date End Date Jose Manuel Villegas MD [address] [place] [address] PCP - General Call Center Trainer 05/12/22 11/25/22 Lacey Perdue MD [address] [phone] Referring Physician Infectious Diseases 06/28/18 documented as of this encounter
--- OUTSIDE RECORDS SUMMARY | 2024-11-23 00:24 | XMS_ITS | Encounter Summary ---
Author Organization [employer] Address [address] [place] [address] Care Team Providers Care Cage Tender Name Role Phone Lacey Perdue MD Unavailable Jose Manuel Villegas MD Primary Care Provider Reason for Referral * Referral (Routine) - Closed Specialty Diagnoses / Procedures Referred By Celine almaguer Referred To Contact Plastic Surgery Diagnoses Left wrist pain Osteoarthritis of left wrist, unspecified osteoarthritis type Shital Dumont PA-C [address] [place] [address] Phone: tel: fax: Estevan Tripp MD [address] [place] [address] Phone: tel: fax: Referral ID Status Reason Start Date Expiration Date V isits Requested Visits Authorized [id number] Closed Specialty Services Required 06/09/2022 12/11/2023 1 1 Reason for Visit * Reason Comments Arm Pain Left arm wrist and s houlder pain * Referral (Routine) - Closed Specialty Diagnoses / Procedures Referred By Celine almaguer Referred To Contact Orthopedic Surgery Diagnoses Other chronic pain Eden Segundo, OPERATIONS PROJECT MANAGER [address] [facility] [address] [place] [address] Phone: tel: fax: [facility] [address] [place] [phone] Phone: tel: fax: Referral ID Status Reason Start Date Expiration Date V isits Requested Visits Authorized [id number] Closed Specialty Services Required 06/08/2022 12/10/2023 1 1 Encounter Details Date Type Department Care Team (Late st Contact Info) Description 06/09/2022 8:40 AM CDT Initial consult [facility] [address] [place] [phone] Eden Segundo, OPERATIONS PROJECT MANAGER [address] [facility] [address] [place] [address] Shital Dumont PA-C [address] [place] [id number] Left wrist pain (Primary Dx); Left shoulder pain, unspecified chronicity; Osteoarthritis of left shoulder, unspecified osteoarthritis type; Osteoarthritis of left wrist, unspecified osteoarthritis type [...] Taken Comments Blood Pressure - - Pulse - - Temperature - - Respiratory Rate - - Oxygen Saturation - - Inhaled Oxygen Concentration - - Weight 88.5 kg (195 lb) 06/09/2022 8:53 AM CDT Height 180.3 cm (5' 11 ) 06/09/2022 8:53 AM CDT Body Mass Index 27.2 06/09/2022 8:53 AM CDT documented in this encounter Functional Status * Are you deaf or do you have serious difficulty hearing? Answer Date of Assessment Author No 10/25/2017 2:00 PM TAG PRESS OPERATOR Cole, Am y S, POWER PLANT OPERATIONS MANAGER * Are you blind or do you have serious difficulty seeing, even when wearing glasses? Answer Date of Assessment Author No 10/25/2017 2:00 PM TAG PRESS OPERATOR Galvan, Am y S, POWER PLANT OPERATIONS MANAGER * Do you have serious difficulty walking or climbing stairs? (5 years old or older) Answer Date of Assessment Author No 10/25/2017 2:00 PM TAG PRESS OPERATOR Galvan, Am y S, POWER PLANT OPERATIONS MANAGER * Do you have difficulty dressing or bathing? (5 years old or older) Answer Date of Assessment Author No 10/25/2017 2:00 PM TAG PRESS OPERATOR Galvan, Am y S, POWER PLANT OPERATIONS MANAGER * Because of a physical, mental, or emotional condition, do you have difficulty doing errands alone such as visiting a doctor's office or shopping? (15 years old or older) Answer Date of Assessment Author No 10/25/2017 2:00 PM TAG PRESS OPERATOR Galvan, Am y S, POWER PLANT OPERATIONS MANAGER documented as of this encounter Mental Status * Because of a physical, mental, or emotional condition, do you have serious difficulty concentrating, remembering, or making decisions? (5 years old or older) Answer Entry Date Author No 10/25/2017 2:00 PM TAG PRESS OPERATOR Cole, Am y S, POWER PLANT OPERATIONS MANAGER documented in this encounter Progress Notes * Shital Dumont PA-C - 06/09/2022 8:40 AM CDT Subjective: Patient ID: Edilberto Hawley is a 66 y.o. male. HPI: Patient goes by Se. 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 Patient states he has a left wrist pain for about 17 years. He denies any injury or trauma. He does have a brace that heutilizes as needed. He states his pain is all the time and worse with use and better with rest and r ubbing it. He denies any history of wrist injections. No history of wrist surgeries. When asked about pain is he points to the radiocarpal joint. He does have a history of left hand injury to the ulnar side from some type of power tool that required him to have sutures but he did not ever have any surgery but has limited feeling in the ulnar aspect of his hand. He does have a history of contralateral right wrist fusion done in 2002 in [place]. He is not having issues after the surgery. Patient also has an left shoulder pain for years and has become more constant and feels he has limited range of motion is not able to reach above his head. He has a lot of nighttime discomfort. He does have a history of rotator cuff repair done in 2002 but he states that he fell after this repair and probably ruined his repair but they did not do any type of revision surgery. Patient does take oxycodone 10/325 mg at baseline. He states he takes this for history of foot cellulitis as well as sciatic nerve pain and back pain. He also takes a muscle relaxer. Objective: Gen: A&Ox3. NAD. Appears stated age Pulm: No expiratory wheezes. No use of accessory muscles. Skin: Skin intact. No warmth, erythema or deformity noted. Ortho: Left wrist with skin intact without any warmth, erythema, swelling or deformity. Moderate tenderness to palpation over the radiocarpal joint and scapholunate interval. No tenderness over the medial side of his wrist, negative Lopez's point. Negative pisotriquetral shearing. No tenderness to palpation of the ECU or FCU tendons. No tenderness over the first CMC tenderness. Mild first dorsal compartment tenderness. No pain with first CMC circumduction but with crepitus. Full finger and thumb range of motion. Approximately 35/45 degrees of wrist range of motion. Decreased sensation to light touch subjectively at the ulnar aspect of the hands. Intact sensation light touch at the radial and median nerve distributions. 5/5 strength with EPL, FPL, EDC, FDP, IO. Hands are warm and well-perfused. Left shoulder with skin intact. Portal sites are benign and well-healed. Abduction with mild discomfort above 90 degrees. External rotation of 30 degrees versus 60 degrees contralaterally. Internal rotation to T12 bilaterally. 4/5 strength and pain with external rotation against resistance, empty can negative speeds. Negative belly press. Negative bearhug. Negative Yergason's. Negative Neer's. Negative Carnes. Negative cross body testing. Negative Apalachin's. Shoulder stable to anterior and posterior stress. Arm is warm and well-perfused. Imaging: Radiology Studies: Multiple views of the patient's left wrist were ordered and reviewed today. Images demonstrate moderate narrowing of the radiocarpal joint. There is widening of the scapholunate interval. There is significant degenerative change of the first CMC joint. Mild narrowing of the STT joint. Slight ulnar negative variance noted. No acute fractures. Multiple views of the patient's left shoulder were also ordered and reviewed today. Images show anchors within the humeral head. There is no superior migration of humeral head. There is mild to moderate glenohumeral joint narrowing. There is inferior osteophyte at the humeral head. Mild degenerative changes of the acromioclavicular joint. Assessment: Left wrist OA Left shoulder OA with history of RTC repair Plan: I reviewed with The patient is physical exam and radiographic findings of left wrist osteoarthritis. I have discussed the normal Collier of arthritis as well as management options of observation, full-time bracing, injections or surgery. He does have a wrist fusion on the contralateral side and so ocanai consider this in the future but for now I recommended that he wear a wrist brace full-time for t he next 5 weeks and see how symptoms come along. I will also make referral to Dr. Kae Marques. I will have patient see Dr. Kae Marques after trial of bracing for repeat evaluation. If he continues any pain he may consider possible radiocarpal joint injection versus a wrist fusion. Patient seemshappy with this plan. In regards to his left shoulder, I did discuss with him my concern for glenohumeral joint osteoarthritis. We did discuss arthritis of the shoulder management options of observation, physical therapy,cortisone injection or total shoulder replacement. Patient is already currently on oxycodone for pain management. He is not interested in physical therapy. He would like to try cortisone injection which may help. Glenohumeral joint injection was performed today. He will try this and see how symptoms come along. If it does not resolve after a cortisone injection I can refer him to see our total shoulder ortho surgeon. He seems happy with this plan. He will follow-up with me as needed. PROCEDURE: The patient was advised of the possible adverse outcomes of injection which include infection fat necrosis, hypopigmentation, steroid flare, elevated blood sugars. Patient was advised that injectionsmay take 3-4 weeks to become fully functional or may not provide significant relief and also that relief may be temporary. The posterior lateral LEFT shoulder was cleansed with chlor prep. A 22-gauge needle was used to access the glenohumeral space where an injection was performed with 80 milligrams Depo-Medrol and 8 cc 0.5 percent Marcaine. A Band- Aid was applied and the patient tolerated the procedure well. Patient History: No Known Allergies Current Outpatient Medications Medication Sig Dispense Refill ??? albuterol 108 (90 Base) MCG/ACT inhaler Inhale 2 (two) puffs into the lungs every 4 (four) hours as needed for Wheezing. 1 each 1 ??? amitriptyline (ELAVIL) 100 MG tablet Take 1 (one) tablet by mouth nightly. 30 tablet 3 ??? Ascorbic Acid (VITAMIN C) 500 MG tablet Take 500 mg by mouth daily. ??? aspirin 325 MG tablet Take 325 mg by mouth. ??? baclofen (LIORESAL) 10 MG tablet Take 1 (one) tablet by mouth 3 (three) times daily as needed. 90 tablet 0 ??? diclofenac sodium (VOLTAREN) 50 MG EC tablet Take 1 (one) tablet by mouth 2 (two) times daily. 60 tablet 5 ??? docusate sodium (COLACE) 100 MG capsule Take 1 (one) capsule by mouth 2 (two) times daily as needed for Constipation. 30 capsule 2 ??? Multiple Vitamins-Minerals (ONE DAILY MULTIVITAMIN ADULT PO) Take by mouth. ??? NARCAN 4 MG/0.1ML LIQD nasal liquid USE DIRECTED. 2 each 1 ??? Probiotic Product (SOLUBLE FIBER/PROBIOTICS PO) Take 1 tablet by mouth daily. ??? tamsulosin HCl (FLOMAX) 0.4 MG capsule Take 1 (one) capsule by mouth daily. 30 capsule 3 ??? vitamin D (CHOLECALCIFEROL) 1000 units tablet Take 1,000 Units by mouth daily. ??? zinc sulfate (ZINCATE) 220 (50 Zn) MG capsule Take 220 mg by mouth daily. ??? oxyCODONE-acetaminophen (PERCOCET) 10-325 MG per tablet Take 1 (one) tablet by mouth every 6 (six) hours as needed for Pain. Needs to last 30 days 60 tablet 0 ??? predniSONE (DELTASONE) 10 MG tablet 4 tabs po qam x 3 days, then 3 tabs po qam x 3 days, then 2tabs po qam x 3 days, 1 tab po qam x 3 days, then 1/2 tab po qam x 4 days 32 tablet 0 No current facility-administered medications for this visit. Past Medical History: Diagnosis Date ??? Arthritis [...] of Onset ??? Dementia Mother Social History Occupational History ??? Occupation: Retired Tobacco Use ??? Smoking status: Never Smoker ??? Smokeless tobacco: Never Used Vaping Use ??? Vaping Use: Never used Substance and Sexual Activity ??? Alcohol use: No ??? Drug use: Yes Types: Hydrocodone Comment: Arthritis pain ??? Sexual activity: Not on file Dr. Hay is the collaborating physician for this visit. This note was prepared using dictation service and an EMR. There may be inadvertent errors and omissions. If there is any question concerningthis report please call Shital Dumont PA-C at [phone]. * Maulik Hay MD - 06/09/2022 8:40 AM CDT I have reviewed the notes, assessments, and/or procedures performed by Shital Dumont PA-C, and I concur with her documentation of Edilberto Hawley. documented in this encounter Plan of Treatment Scheduled Referrals Name Type Priority Associated Diagnoses Orde r Schedule Amb Ref to Plastic Surgery Outpatient Referral Routine Left wrist pain Osteoarthritis of left wrist, unspecified osteoarthritis type Ordered: 06/09/2022 documented as of this encounter Goals Goal [...] AM CDT Narrative 06/09/2022 8:55 AM CDT [address] ??[address] DIAGNOSTIC IMAGING Name: EDILBERTO HAWLEY ??Ordering Phys: SHITAL DUMONT Date of : 1955 ?Gender: M ??Accession Number: [id number] EXAM DESCRIPTION: XR WRIST MIN 3 VIEWSLT [...] Procedure Note Dayanna Durbin MD - 06/09/[address] [address] DIAGNOSTIC IMAGING Name: EDILBERTO HAWLEY Ordering Phys: SHITAL DUMONT Date of : 1955 Gender: M Accession Number: [id number] EXAM DESCRIPTION: XR WRIST MIN 3 VIEWSLT [...] Electronically signed by Dayanna Durbin M.D. Shital uDmont PA-C IMG DIAGNOSTIC IMAGING O RDERABLES Final Result * XR Shoulder Min 2 Views L (06/09/2022 8:39 AM CDT) Anatomical Region Laterality Modality Computed Radiogr aphy 06/09/2022 8:39 AM CDT Narrative 06/09/2022 8:57 AM CDT [address] ??[address] DIAGNOSTIC IMAGING Name: EDILBERTO HAWLEY ??Ordering Phys: SHITAL DUMONT Date of : 1955 ?Gender: M ??Accession Number: [id number] EXAM DESCRIPTION: XR SHOULDER MIN 2 VIEWS [id number] REASON FOR STUDY: Chronic left shoulder pain. [...] Procedure Note Dayanna Durbin MD - 06/09/2022 [place] [address] DIAGNOSTIC IMAGING Name: EDILBERTO HAWLEY Ordering Phys: SHITAL DUMONT Date of : 1955 Gender: M Accession Number: [id number] EXAM DESCRIPTION: XR SHOULDER MIN 2 VIEWS [id number] REASON FOR STUDY: Chronic left shoulder pain. 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, unspecified osteoarthritis type Left wrist pain Pain in joint, forearm Left shoulder pain, unspecified chronicity documented in this encounter Administered Medications Inactive Administered Medications - up to 3 most recent administrations Medication Order MAR Action Action Date Dose Rate Site triamcinolone acetonide (KENALOG-40) injection 40 mg, Intra-articular, ONCE, On Wed06/09/22 at 0930, For 1 dose, For deep IM into large muscle mass, avoid deltoidIndications:Osteoarthr itis of left shoulder, unspecified osteoarthritis type Given 06/09/2022 9:07 AM CDT 40 mg Left shoulder documented in this encounter Additional Health Concerns Assessment Noted Time A fall risk assessment has been complete d for the patient 05/12/2022 9:40 AM CDT A Body Mass Index follow-up plan has been documented for the patient 05/12/2022 10:14 AM CDT documented as of this encounter Care Teams Cage Tender Relationship Specialty Start Date End Date Jose Manuel Villegas MD [address] [place] [address] PCP - General Professor Of Sport Management 05/12/22 11/25/22 Lacey Perdue MD [address] [address] Referring Physician Infectious Diseases 06/28/18 documented as of this encounter
--- OUTSIDE RECORDS SUMMARY | 2024-11-23 00:24 | XMS_ITS | Encounter Summary ---
Author Organization [employer] Address [address] [place] [address] Care Team Providers Care Per Diem Physical Therapist Name Role Phone Lacey Perdue MD Unavailable Jose Manuel Villegas MD Primary Care Provider [phone] Reason for Visit * Reason Comments Medication Refill Encounter Details Date Type Department Care Team (Late st Contact Info) Description 08/13/2022 Refill [facility] [place] [address] Jose Manuel Villegas MD [address] [place] [address] Social History Tobacco Use Types Packs/Day [...] Author No 10/25/2017 2:00 PM Deonna Padilla, BONDING MACHINE SETTER * Are you blind or do you have serious difficulty seeing, even when wearing glasses? Answer Date of Assessment Author No 10/25/2017 2:00 PM JOHN Galvan Am y S, BONDING MACHINE SETTER * Do you have serious difficulty walking or climbing stairs? (5 years old or older) Answer Date of Assessment Author No 10/25/2017 2:00 PM Deonna Padilla S, BONDING MACHINE SETTER * Do you have difficulty dressing or bathing? (5 years old or older) Answer Date of Assessment Author No 10/25/2017 2:00 PM Deonna Padilla S, BONDING MACHINE SETTER * Because of a physical, mental, or emotional condition, do you have difficulty doing errands alone such as visiting a doctor's office or shopping? (15 years old or older) Answer Date of Assessment Author No 10/25/2017 2:00 PM Deonna Padlila, BONDING MACHINE SETTER documented as of this encounter Mental Status * Because of a physical, mental, or emotional condition, do you have serious difficulty concentrating, remembering, or making decisions? (5 years old or older) Answer Entry Date Author No 10/25/2017 2:00 PM Deonna Padilla, BONDING MACHINE SETTER documented in this encounter Plan of Treatment [...] documented as of this encounter Care Teams Per Diem Physical Therapist Relationship Specialty Start Date End Date Jose Manuel Villegas MD [facility] [place] [address] PCP - General Paint Specialist 05/12/22 11/25/22 Lacey Perdue MD [address] [address] Referring Physician Infectious Diseases 06/28/18 documented as of this encounter
--- OUTSIDE RECORDS SUMMARY | 2024-11-23 00:24 | XMS_ITS | Encounter Summary ---
Author Organization [employer] Address [address] [place] [address] Care Team Providers Care Mortgage Lender Name Role Phone Lacey Perdue MD Unavailable [phone] Patient, None Per Primary Care Provider Unavaila ble Reason for Visit * Reason Onset Date Comments Results 03/22/2023 US Encounter Details Date Type Department Care Team (Late st Contact Info) Description 03/22/2023 Telephone [facility] [address] [place] [address] [address] [place] [address] Deidra Mota, RN [address] [place] [address] [address] [place] [address] Results (US ) Social History Tobacco Use Types Packs/Day Years [...] No 10/25/2017 2:00 PM Deonna Padilla S, JUMPBASTING ARMHOLE BASTER * Do you have serious difficulty walking or climbing stairs? (5 years old or older) Answer Date of Assessment Author No 10/25/2017 2:00 PM Deonna Padilla S, JUMPBASTING ARMHOLE BASTER * Do you have difficulty dressing or bathing? (5 years old or older) Answer Date of Assessment Author No 10/25/2017 2:00 PM Deonna Padilla S, JUMPBASTING ARMHOLE BASTER * Because of a physical, mental, or emotional condition, do you have difficulty doing errands alone such as visiting a doctor's office or shopping? (15 years old or older) Answer Date of Assessment Author No 10/25/2017 2:00 PM Deonna Padilla, JUMPBASTING ARMHOLE BASTER documented as of this encounter Mental Status * Because of a physical, mental, or emotional condition, do you have serious difficulty concentrating, remembering, or making decisions? (5 years old or older) Answer Entry Date Author No 10/25/2017 2:00 PM Deonna Padilla, JUMPBASTING ARMHOLE BASTER documented in this encounter Miscellaneous Notes * Telephone Encounter - Deidra Mota RN - 03/22/2023 1:30 PM CDT Called pt and notified him of Dr. Loyd result note and recommendations. Pt Vpu and agreeable to having HIDA scan done. Notified pt that Radiology will call him to schedule. Pt Vpu. HIDA scan ordered. Javad MEZA * Telephone Encounter - Deidra Mota RN - 03/22/2023 1:28 PM CDT ----- Message from Siddhartha Loyd MD sent at 03/22/2023 9:52 AM CDT ----- Call patient let him know that his gallbladder ultrasound did not show any gallstones. Please ask him if he still having his symptoms. If he is, a HIDA with stimulation is an option for him. If he would like to have that done, go ahead and order it. Thanks documented in this encounter Plan of Treatment Not on file documented as of this encounter Goals Goal Patient Goal Type Associated Problems Recent Progress Patient-Stated? Author Blood Pressure < 140/90 Blood Pressure 134/86(2022 2:25 PM CDT) No Leonard Jasso APRN documented as of this encounter Visit Diagnoses Diagnosis RUQ abdominal pain- Primary Abdominal pain, right upper quadrant documented in this encounter Additional Health Concerns Assessment Noted Time A fall risk assessment has been complete d for the patient 09/17/2022 9:09 AM CDT A Body Mass Index follow-up plan has been documented for the patient 09/17/2022 9:29 AM CDT documented as of this encounter Care Teams Mortgage Lender Relationship Specialty Start Date End Date Patient, None Per PCP - General 03/04/23 Lacey Perdue MD [address] [address] Referring Physician Infectious Diseases 06/28/18 documented as of this encounter
--- OUTSIDE RECORDS SUMMARY | 2024-11-23 00:24 | XMS_ITS | Encounter Summary ---
Author Organization [employer] Address [address] [place] [address] Care Team Providers Care Knockdown Worker Name Role Phone Lacey Perdue MD Unavailable [phone] Jose Manuel Villegas MD Primary Care Provider Reason for Referral * Referral (Routine) - Closed Specialty Diagnoses / Procedures Referred By Contac t Referred To Contact Rheumatology Diagnoses Arthritis Jose Manuel Villegas MD [address] [place] [address] Phone: tel: fax: [facility] [address] [place] [address] Phone: tel: fax: Referral ID Status Reason Start Date Expiration Date V isits Requested Visits Authorized [id number] Closed Specialty Services Required 06/10/2022 12/12/2023 1 1 Encounter Details Date Type Department Care Team (Late st Contact Info) Description 06/10/2022 Orders Only [facility] [address] [place] [address] Penny Carey RN [address] [place] [address] Arthritis (Primary Dx) Social History [...] to Rheumatology Outpatient Referral Routine Arthritis Ordered: 06/10/2022 documented as of this encounter Goals Goal [...] documented as of this encounter Care Teams Knockdown Worker Relationship Specialty Start Date End Date Jose Manuel Villegas MD [facility] [place] [address] PCP - General Track Repair Supervisor 05/12/22 11/25/22 Lacey Perdue MD [address] [address] Referring Physician Infectious Diseases 06/28/18 documented as of this encounter
--- OUTSIDE RECORDS SUMMARY | 2024-11-23 00:24 | XMS_ITS | Encounter Summary ---
Author Organization [employer] Address [address] [place] [address] Care Team Providers Care Sprinkler Worker Name Role Phone Lacey Perdue MD Unavailable Jose Manuel Villegas MD Primary Care Provider Reason for Visit * Reason Comments Medication Refill Encounter Details Date Type Department Care Team ([facility] st Contact Info) Description 10/16/2022 Refill [facility] [address] [place] [address] Yoandy Red MD [facility] [address] Social History Tobacco Use Types Packs/Day [...] Author No 10/25/2017 2:00 PM Deonna Padilla, COURT OF APPEALS JUDGE * Are you blind or do you have serious difficulty seeing, even when wearing glasses? Answer Date of Assessment Author No 10/25/2017 2:00 PM Deonna Padilla, COURT OF APPEALS JUDGE * Do you have serious difficulty walking or climbing stairs? (5 years old or older) Answer Date of Assessment Author No 10/25/2017 2:00 PM Deonna Padilla, COURT OF APPEALS JUDGE * Do you have difficulty dressing or bathing? (5 years old or older) Answer Date of Assessment Author No 10/25/2017 2:00 PM Deonna Padilla, COURT OF APPEALS JUDGE * Because of a physical, mental, or emotional condition, do you have difficulty doing errands alone such as visiting a doctor's office or shopping? (15 years old or older) Answer Date of Assessment Author No 10/25/2017 2:00 PM Deonna Padilla, COURT OF APPEALS JUDGE documented as of this encounter Mental Status * Because of a physical, mental, or emotional condition, do you have serious difficulty concentrating, remembering, or making decisions? (5 years old or older) Answer Entry Date Author No 10/25/2017 2:[address] OF APPEALS JUDGE documented in this encounter Plan of Treatment [...] documented as of this encounter Care Teams Sprinkler Worker Relationship Specialty Start Date End Date Jose Manuel Villegas MD [address] [place] [address] PCP - General Funeral Service Licensee 05/12/22 11/25/22 Lacey Perdue MD [address] [phone] Referring Physician Infectious Diseases 06/28/18 documented as of this encounter
--- OUTSIDE RECORDS SUMMARY | 2024-11-23 00:24 | XMS_ITS | Encounter Summary ---
Author Organization [employer] Address [address] [place] [address] Care Team Providers Care Sanitation Supervisor Name Role Phone Lacey Perdue MD Unavailable [phone] Patient, None Per Primary Care Provider Unavaila ble Reason for Visit * Reason Onset Date Comments overdue labs 03/29/2023 Encounter Details Date Type Department Care Team (Late st Contact Info) Description 03/29/2023 Telephone [facility] - General Surgery [address] [place] [address] [address] [place] [address] Deidra Mota, RN [address] [place] [address] [address] [place] [address] overdue labs Social History Tobacco [...] Author No 10/25/2017 2:00 PM Deonna Padilla, DYNAMOMETER REPAIRER * Do you have serious difficulty walking or climbing stairs? (5 years old or older) Answer Date of Assessment Author No 10/25/2017 2:00 PM Deonna Padilla S, DYNAMOMETER REPAIRER * Do you have difficulty dressing or bathing? (5 years old or older) Answer Date of Assessment Author No 10/25/2017 2:00 PM Deonna Padilla, DYNAMOMETER REPAIRER * Because of a physical, mental, or emotional condition, do you have difficulty doing errands alone such as visiting a doctor's office or shopping? (15 years old or older) Answer Date of Assessment Author No 10/25/2017 2:00 PM Deonna Padilla, DYNAMOMETER REPAIRER documented as of this encounter Mental Status * Because of a physical, mental, or emotional condition, do you have serious difficulty concentrating, remembering, or making decisions? (5 years old or older) Answer Entry Date Author No 10/25/2017 2:00 PM Deonna Padilla, DYNAMOMETER REPAIRER documented in this encounter Miscellaneous Notes * Telephone Encounter - Deidra Mota RN - 03/29/2023 8:58 AM CDT PT is on expiring orders list for overdue labs for Dr. Loyd. Called pt and reminded him to complete lab work. Pt Vpu and states he will complete lab work today. Labs extended. Dafne MEZA documented in this encounter Plan of Treatment [...] as of this encounter Care Teams Sanitation Supervisor Relationship Specialty Start Date End Date Patient, None Per PCP - General 03/04/23 Lacey Perdue MD [address] [phone] Referring Physician Infectious Diseases 06/28/18 documented as of this encounter
--- OUTSIDE RECORDS SUMMARY | 2024-11-23 00:24 | XMS_ITS | Encounter Summary ---
Author Organization [employer] Address [address] [place] [address] Care Team Providers Care Parking Control Officer Name Role Phone Lacey Perdue MD Unavailable [phone] Jose Manuel Villegas MD Primary Care Provider Encounter Details Date Type Department Care Team (Latest Contact Info) Description 06/09/2022 Travel Social History Tobacco Use Types Packs/Day [...] of Assessment Author No 10/25/2017 2:00 PM VISITOR SERVICES INFORMATION ASSISTANT Galvan, Am y S, BLUEPRINT CUTTER * Do you have serious difficulty walking or climbing stairs? (5 years old or older) Answer Date of Assessment Author No 10/25/2017 2:00 PM JOHN Galvan Am y S, BLUEPRINT CUTTER * Do you have difficulty dressing or bathing? (5 years old or older) Answer Date of Assessment Author No 10/25/2017 2:00 PM VISITOR SERVICES INFORMATION ASSISTANT Deonna Galvan y S, BLUEPRINT CUTTER * Because of a physical, mental, or emotional condition, do you have difficulty doing errands alone such as visiting a doctor's office or shopping? (15 years old or older) Answer Date of Assessment Author No 10/25/2017 2:00 PM VISITOR SERVICES INFORMATION ASSISTANT Deonna Galvan y S, BLUEPRINT CUTTER documented as of this encounter Mental Status * Because of a physical, mental, or emotional condition, do you have serious difficulty concentrating, remembering, or making decisions? (5 years old or older) Answer Entry Date Author No 10/25/2017 2:00 PM JOHN Galvan Am y S, BLUEPRINT CUTTER documented in this encounter Plan of Treatment [...] documented as of this encounter Care Teams Parking Control Officer Relationship Specialty Start Date End Date Jose Manuel Villegas MD [address] [place] [address] PCP - General Work Order Clerk 05/12/22 11/25/22 Lacey Perdue MD [address] [phone] Referring Physician Infectious Diseases 06/28/18 documented as of this encounter
--- OUTSIDE RECORDS SUMMARY | 2024-11-23 00:24 | XMS_ITS | Encounter Summary ---
Author Organization [employer] Address [address] [place] [address] Care Team Providers Care Vending Machine Technician Name Role Phone Lacey Perdue MD Unavailable Jose Manuel Villegas MD Primary Care Provider Encounter Details Date Type Department Care Team (Late st Contact Info) Description 05/15/2022 Orders Only [facility] Centralized Scanning Jose Manuel Villegas MD [address] [place] [address] Social History Tobacco Use Types [...] of Assessment Author No 10/25/2017 2:00 PM INTERVENTIONAL RADIOLOGY TECHNOLOGIST Galvan, Am y S, IT TELECOM TECHNICIAN * Are you blind or do you have serious difficulty seeing, even when wearing glasses? Answer Date of Assessment Author No 10/25/2017 2:00 PM Deonna Padilla S, IT TELECOM TECHNICIAN * Do you have serious difficulty walking or climbing stairs? (5 years old or older) Answer Date of Assessment Author No 10/25/2017 2:00 PM JOHN Galvan Am y S, IT TELECOM TECHNICIAN * Do you have difficulty dressing or bathing? (5 years old or older) Answer Date of Assessment Author No 10/25/2017 2:00 PM Deonna Padilla S, IT TELECOM TECHNICIAN * Because of a physical, mental, or emotional condition, do you have difficulty doing errands alone such as visiting a doctor's office or shopping? (15 years old or older) Answer Date of Assessment Author No 10/25/2017 2:00 PM Deonna Padilla, IT TELECOM TECHNICIAN documented as of this encounter Mental Status * Because of a physical, mental, or emotional condition, do you have serious difficulty concentrating, remembering, or making decisions? (5 years old or older) Answer Entry Date Author No 10/25/2017 2:00 PM Deonna Padilla, IT TELECOM TECHNICIAN documented in this encounter Plan of Treatment Not on file documented as of this encounter Goals Goal Patient Goal Type Associated Problems Recent Progress Patient-Stated? Author Blood Pressure < 140/90 Blood Pressure 134/86(2022 2:25 PM CDT) No Leonard Jasso APRN documented as of this encounter Procedures Procedure Name Priority Date/Time Associated Diagnosis Comments CONTROLLED SUBSTANCE AGREEMENT Routine 05/12/2022 documented in this encounter Results * Controlled Substance Agreement (05/12/2022) Jose Manuel Villegas MD SUBSTANCE ABUSE ORDERABLES Final Result documented in this encounter Visit Diagnoses Not on filedocumented in this encounter Additional Health Concerns Assessment Noted Time A fall risk assessment has been complete d for the patient 05/12/2022 9:40 AM CDT A Body Mass Index follow-up plan has been documented for the patient 05/12/2022 10:14 AM CDT documented as of this encounter Care Teams Vending Machine Technician Relationship Specialty Start Date End Date Jose Manuel Villegas MD [address] [place] [address] PCP - General Carding Doubler 05/12/22 11/25/22 Lacey Perdue MD [address] [phone] Referring Physician Infectious Diseases 06/28/18 documented as of this encounter
--- OUTSIDE RECORDS SUMMARY | 2024-11-23 00:24 | XMS_ITS | Encounter Summary ---
Author Organization [employer] Address [address] [place] [address] Care Team Providers Care Air Carrier Inspector Name Role Phone Lacey Perdue MD Unavailable [phone] Michell Trevizo MD Primary Care Provider [phone] Reason for Visit * Reason Onset Date Comments Medication Refill 02/03/2022 Encounter Details Date Type Department Care Team (Late st Contact Info) Description 02/03/2022 Refill [facility] Internal Medicine [address] [place] [address] Clarice Stevens, RN [address] [place] [address] Social History Tobacco Use Types [...] Author No 10/25/2017 2:00 PM Deonna Padilla, BLUEPRINT MAKER * Do you have serious difficulty walking or climbing stairs? (5 years old or older) Answer Date of Assessment Author No 10/25/2017 2:00 PM Deonna Padilla, BLUEPRINT MAKER * Do you have difficulty dressing or bathing? (5 years old or older) Answer Date of Assessment Author No 10/25/2017 2:00 PM Deonna Padilla, BLUEPRINT MAKER * Because of a physical, mental, or [...] encounter Miscellaneous Notes * Telephone Encounter - Clarice Stevens RN - 02/03/2022 10:38 AM CDT Provider, or provider's official delegate, has accessed the Prescription Monitoring Program recordsassociated with the signed order within this encounter for Controlled Substance Prescription(s). Clarice Stevens RN 02/03/2022 documented in this encounter Plan of Treatment [...] documented for the patient 12/23/2021 12:30 PM ADOBE ARCHITECT documented as of this encounter Care Teams Air Carrier Inspector Relationship Specialty Start Date End Date Michell Trevizo MD [address] [place] [address] PCP - General Internal Medicine 05/29/21 02/25/22 Lacye Perdue MD [address] [phone] Referring Physician Infectious Diseases 06/28/18 documented as of this encounter
--- OUTSIDE RECORDS SUMMARY | 2024-11-23 00:25 | XMS_ITS | Encounter Summary ---
Author Organization [employer] Address [address] [place] [address] Care Team Providers Care Store Warehouse Associate Name Role Phone Lacey Perdue MD Unavailable [phone] Michell Trevizo MD Primary Care Provider [phone] Reason for Referral * Allergy Testing (Routine) - Closed Specialty Diagnoses / Procedures Referred By Contjessica t Referred To Contact Allergy Diagnoses Chronic rhinitis Carson Wolff MD [address] [place] [id number] Phone: tel: fax: Referral ID Status Reason Start Date Expiration Date V isits Requested Visits Authorized [id number] Closed Specialty Services Required 12/15/2021 06/18/2023 1 1 NSED CLUB MANAGER Reason for Visit * Reason Comments Sinus Problem Encounter Details Date Type Department Care Team (Late st Contact Info) Description 12/15/2021 2:00 PM LICENSED CLUB MANAGER Office Visit [facility] [address] [place] [phone] Carson Wolff MD [address] [place] [phone] Chronic rhinitis (Primary Dx); Left nasal polyps; Chronic maxillary sinusitis; Recurrent sinusitis; Chronic ethmoidal sinusitis; Chronic sphenoidal sinusitis; Polypoid sinus degeneration; Nasal polyposis; Nasal septal perforation; History of nasal septoplasty Social History Tobacco Use Types Packs/Day Years [...] have Coronavirus / COVID-19? No / Unsure 12/15/2021 1:26 PM LICENSED CLUB MANAGER documented as of this encounter Functional Status * Are you deaf or do you have serious difficulty hearing? Answer Date of Assessment Author No 10/25/2017 2:00 PM LICENSED CLUB MANAGER Deonna Galvan, ENCYCLOPEDIA RESEARCH WORKER * Are you blind or do you have serious difficulty seeing, even when wearing glasses? Answer Date of Assessment Author No 10/25/2017 2:00 PM LICENSED CLUB MANAGER Deonna Galvan, ENCYCLOPEDIA RESEARCH WORKER * Do you have serious difficulty walking or climbing stairs? (5 years old or older) Answer Date of Assessment Author No 10/25/2017 2:00 PM Deonna Padilla, ENCYCLOPEDIA RESEARCH WORKER * Do you have difficulty dressing or bathing? (5 years old or older) Answer Date of Assessment Author No 10/25/2017 2:00 PM Deonna Padilla, ENCYCLOPEDIA RESEARCH WORKER * Because of a physical, mental, [...] documented in this encounter Progress Notes * Carson Wolff MD - 12/15/2021 2:00 PM CST Subjective: Subjective Edilberto Hawley is a 66 y.o. male who is s/p septoplasty, bilateral ITR, endoscopicsinus surgery (bilateral maxillary antrostomy, partial ethmoidectomy, balloon sphenoidotomy, Propelimplant placement) on 08/29/2021. Crowell splints were removed in clinic on 09/04/2021. He returns today for follow up. HPI: Se reports that he tried the neti pot and did not tolerate. He does do well with the squeeze bottle irrigations, though. Recently had bronchitis. Has dentures. Problems with swallowing. He thinksthat it is because he does not use teeth and does not chew food thoroughly. Hx of substance use- cocaine use. Quit in 1996 with the help of hypnotherapy. Relapsed about 30 times. Former alcohol drinker. Denies fevers, chills, nausea, vomiting. Pain is controlled. No bleeding. No vision changes. Patient Active Problem List Diagnosis ??? Acute adjustment disorder with depressed mood ??? Chronic bilateral low back pain with sciatica ??? Rotator cuff injury ??? Substance abuse ([facility]) ??? Migraines ??? Chronic back pain greater than 3 months duration ??? Arthritis ??? Staphylococcal arthritis of right ankle ([facility]) ??? Cellulitis of axilla, right ??? Avascular necrosis of bone ([facility]) ??? Spinal stenosis ??? Chronic pain ??? Closed fracture of transverse process of lumbar vertebra with routine healing ??? Femoral acetabular impingement ??? 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 History of repair of left rotator cuff ??? Hyperlipidemia ??? [facility] current use of opiate analgesic ??? Osteoarthritis [...] Osteomyelitis of ankle or foot, acute, right ([facility]) 2018 Stepped on nail ??? Shoulder injury [...] Relation Age of Onset ??? Dementia Mother No Known Allergies Review of Systems: HEENT - as per HPI Exam: General appearance Alert, cooperative, no distress Communication Normal for age Head Normocephalic, atraumatic No masses or lesions Nose External: Dorsum Midline Internal: pinpoint perforation of septum inferiorly No bleeding; mucosa is healing but significant mucosal edema bilaterally Left maxillary sinus open, polypoid mass extending out of sinus through antrostomy site--biopsy collected Right maxillary sinus open; mucous retention cysts vs polyps within sinus Flexible nasal endoscopy: Verbal consent was obtained. The nasal cavity was prepped with an aerosolized solution of topical anesthetic and vasoconstrictive agent bilaterally. The scope was passed through the anterior nasal cavity and advanced to examine bilateral nasal passages. Findings are noted in the exam portion of clinic note. Procedure tolerated well with no immediate complications noted. Rigid nasal endoscopy with maxillary sinus biopsy: Verbal consent was obtained and more topical lidocaine was sprayed in the left nasal passage. Rigid endoscope was used for visualization while cup forceps were used to take several pieces of a mass/polyp noted at the left maxillary sinus antrostomysite. The biopsies were sent for permanent pathology. Patient tolerated the procedure well. Data Review: Video Swallow Evaluation (05/14/2021): Normal Audiogram/Tympanogram (06/05/2021): Hearing downsloping symmetric SNHL AU Tymps type A AU SNOT-22 Score (04/07/2021) = 34 SNOT-22 Score (09/15/2021) = 35 SNOT-22 Score (10/14/2021) = 56 CT sinus (05/26/2021) - images and report reviewed:?? Right septal deviation. Bilateral inferior turbinate hypertrophy. Large maxillary accessory ostia vs sinus surgery changes. Mucosal thickening in bilateral maxillary sinuses. Mucosal thickening in scattered ethmoid sinuses. Mucosal thickening on face of bilateral sphenoid sinuses. 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 Pathology - right maxillary sinus contents (08/29/2021): Benign sinonasal mucosa with chronic rhinosinusitis. OPERATIVE FINDINGS (08/29/2021): Nasal septal deviation: prominent right septal deviation with prominent left spur. There is adhesion connecting left inferior turbinate to left septum. Endonasal septoplasty performed with left hemitransfixion incision. Cartilage and bony portions of septum removed. Bilateral rents. 4-0 plain gut quilting suture; 4-0 chromic gut to close incision. Bilateral inferior turbinate hypertrophy. Bilateral submucous resection performed with microdebrider (2.0 mm turbinate blade). Adhesion on left released. Out-fractured. Bilateral maxillary antrostomy with tissue removal from sinus performed; right maxillary mucus retention cyst noted; contents from right maxillary sinus sent for permanent pathology. Bilateral partial ethmoidectomy performed. Bilateral sphenoidotomy performed with balloon dilation. Maxillary and sphenoid sinuses irrigated with sterile saline. Propel Mini implants placed in bilateral maxillary antrostomy sites. PosiSepX placed in bilateral middle meatus. Crowell splints bilaterally secured with 3-0 nylon, knot tied on left. Image guidance used throughout sinus portions of the surgery. Sinus Culture (10/14/2021): Maxillary sinus culture grew MRSA, susceptible to clindamycin and Bactrim. Assessment/Orders: Assessment Diagnoses and all orders for this visit: Chronic rhinitis - Amb Ref to Allergy Left nasal polyps - Tissue Exam; Future Chronic maxillary sinusitis Recurrent sinusitis Chronic ethmoidal sinusitis Chronic sphenoidal sinusitis Polypoid sinus degeneration Nasal polyposis Nasal septal perforation History of nasal septoplasty Edilberto Hawley is a 66 y.o. male who is s/p septoplasty, bilateral ITR, endoscopic sinus surgery (bilateral maxillary antrostomy, partial ethmoidectomy, balloon sphenoidotomy, Propel implant placement) on 08/29/2021. Recent cultures grew MRSA from sinus (susceptible to Bactrim and Clindamcyin). He has polyposis of bilateral maxillary sinuses noted today and biopsy of left sinus polypoid tissue obtained in clinic today. Consider mometasone sinus rinses if pathology comes back as consistent with polyp. Refer to reuse technician for allergic rhinitis and chronic sinusitis with nasal polyposis. 1. Chronic rhinitis Amb Ref to Allergy 2. Left nasal polyps Tissue Exam 3. Chronic maxillary sinusitis 4. Recurrent sinusitis 5. Chronic ethmoidal sinusitis 6. Chronic sphenoidal sinusitis 7. Polypoid sinus degeneration 8. Nasal polyposis 9. Nasal septal perforation 10. History of nasal septoplasty Plan: Plan - Continue at least twice daily sinus saline lavages. Consider adding mometasone to the rinses. - Tissue exam of left maxillary sinus collected; possible polyp. - Referral to allergy for chronic rhinitis and nasal polyps - Follow up in ~3-4 months Carson Wolff M.D., Ph.D. Otolaryngology - Head and Neck Surgery [facility] NSED CLUB MANAGER documented in this encounter Plan of Treatment Scheduled Referrals Name Type Priority Associated Diagnoses Orde r Schedule Amb Ref to Allergy Outpatient Referral Routine Chronic rhinitis Ordered: 12/15/2021 documented as of this encounter Goals Goal Patient Goal Type Associated Problems Recent Progress Patient-Stated? Author Blood Pressure < 140/90 Blood Pressure 134/86(2022 2:25 PM CDT) No David Jasso APRN documented as of this encounter Results * Tissue Exam (12/15/2021 3:56 PM LICENSED CLUB MANAGER) Pathologist Harvey Martinez M.D., Board Certified in Anatomic Pathology and Clinical Pathology. (electronic signature) [facility] A Clinical Impression Polyps [facility] A Source Polyps, nasal/sinus, biopsy [facility] A Gross Description SEE NOTE [facility] Comment: Specimen is received in formalin, labeled with multiple patient identifier(s) and consists of multiple piece(s) from nasal polyps aggregating to measuring 1.0 x 1.0 x 0.2 cm, irregular in shape and yellow-white in color. The specimen is entirely submitted in one cassette(s). ??Gross exam(s) performed at: [facility] ??[address] [address] ??Scale Installer: DAVID DIA MD A Diagnosis Benign inflammatory nasal polyps. No malignancy. [facility] Tissue 12/15/2021 3:56 PM LICENSED CLUB MANAGER 12/17/2021 12:06 AM LICENSED CLUB MANAGER Comment:- Narrative [facility] - 12/17/2021 4:48 PM LICENSED CLUB MANAGER Collection Date->12/15/21 Collection Time-> 2:15 PM Touchworks # for Lab:->Left Testing performed at: [place], [facility], [address] [place], [address], Scale Installer: David Dia Carson Wolff MD PATHOLOGY/CYTOLOGY ORDERA BLES Final Result [facility] [address] [phone] documented in this encounter Visit Diagnoses Diagnosis Chronic rhinitis- Primary Left nasal polyps Unspecified nasal polyp Chronic maxillary sinusitis Recurrent sinusitis Unspecified sinusitis (chronic) Chronic ethmoidal sinusitis Chronic sphenoidal sinusitis Polypoid sinus degeneration Nasal polyposis Unspecified nasal polyp Nasal septal perforation Other diseases of nasal cavity and sinuses History of nasal septoplasty Other postprocedural status documented in this encounter Additional Health Concerns Assessment Noted Time A fall risk assessment has been complete d for the patient 08/27/2021 11:36 AM CDT A Body Mass Index follow-up plan has been documented for the patient 06/30/2021 12:12 PM CDT documented as of this encounter Care Teams Store Warehouse Associate Relationship Specialty Start Date End Date Michell Trevizo MD [facility] [place] [address] PCP - General Internal Medicine 05/29/21 02/25/22 Lacey Perdue MD [address] [phone] Referring Physician Infectious Diseases 06/28/18 documented as of this encounter
--- OUTSIDE RECORDS SUMMARY | 2024-11-23 00:25 | XMS_ITS | Encounter Summary ---
Author Organization [employer] Address [address] [place] [address] Care Team Providers Care Paid Internship Name Role Phone Lacey Perdue MD Unavailable [phone] Michell Trevizo MD Primary Care Provider [phone] Encounter Details Date Type Department Care Team (Latest Contact Info) Description 08/27/2021 Travel Social History Tobacco Use Types Packs/Day [...] have Coronavirus / COVID-19? No / Unsure 08/27/2021 11:15 AM CDT documented as of this encounter Functional Status * Are you deaf or do you have serious difficulty hearing? Answer Date of Assessment Author No 10/25/2017 2:00 PM Deonna Padilla ARNP * Are you blind or do you have serious difficulty seeing, even when wearing glasses? Answer Date of Assessment Author No 10/25/2017 2:00 PM DISPENSER OPERATOR Galvan, Am y S, BINDERY ASSISTANT * Do you have serious difficulty walking or climbing stairs? (5 years old or older) Answer Date of Assessment Author No 10/25/2017 2:00 PM Deonna Padilla S, BINDERY ASSISTANT * Do you have difficulty dressing or bathing? (5 years old or older) Answer Date of Assessment Author No 10/25/2017 2:00 PM JOHN Galvan Am y S, BINDERY ASSISTANT * Because of a physical, mental, or emotional condition, do you have difficulty doing errands alone such as visiting a doctor's office or shopping? (15 years old or older) Answer Date of Assessment Author No 10/25/2017 2:00 PM JOHN Galvan Am y S, BINDERY ASSISTANT documented as of this encounter Mental Status * Because of a physical, mental, or emotional condition, do you have serious difficulty concentrating, remembering, or making decisions? (5 years old or older) Answer Entry Date Author No 10/25/2017 2:00 PM Deonna Padilla S, BINDERY ASSISTANT documented in this encounter Plan of Treatment [...] documented as of this encounter Care Teams Paid Internship Relationship Specialty Start Date End Date Michell Trevizo MD [facility] [place] [address] PCP - General Internal Medicine 05/29/21 02/25/22 Lacey Perdue MD [address] [phone] Referring Physician Infectious Diseases 06/28/18 documented as of this encounter
--- OUTSIDE RECORDS SUMMARY | 2024-11-23 00:25 | XMS_ITS | Encounter Summary ---
Author Organization [employer] Address [address] [place] [address] Care Team Providers Care Partner Marketing Manager Name Role Phone Lacey Perdue MD Unavailable [phone] Michell Trevizo MD Primary Care Provider [phone] Encounter Details Date Type Department Care Team (Latest Contact Info) Description 11/19/2021 Travel Social History Tobacco Use Types Packs/Day [...] have Coronavirus / COVID-19? No / Unsure 11/19/2021 9:18 AM BEATER TENDER documented as of this encounter Functional Status * Are you deaf or do you have serious difficulty hearing? Answer Date of Assessment Author No 10/25/2017 2:00 PM BEATER TENDER Deonna Galvan ARNP * Are you blind or do you have serious difficulty seeing, even when wearing glasses? Answer Date of Assessment Author No 10/25/2017 2:00 PM BEATER TENDER Galvan, Am y S, BEAM DYER OPERATOR * Do you have serious difficulty walking or climbing stairs? (5 years old or older) Answer Date of Assessment Author No 10/25/2017 2:00 PM Deonna Padilla S, BEAM DYER OPERATOR * Do you have difficulty dressing or bathing? (5 years old or older) Answer Date of Assessment Author No 10/25/2017 2:00 PM BEATER TENDER Deonna Galvan y S, BEAM DYER OPERATOR * Because of a physical, mental, or emotional condition, do you have difficulty doing errands alone such as visiting a doctor's office or shopping? (15 years old or older) Answer Date of Assessment Author No 10/25/2017 2:00 PM JOHN Galvan Am y S, BEAM DYER OPERATOR documented as of this encounter Mental Status * Because of a physical, mental, or emotional condition, do you have serious difficulty concentrating, remembering, or making decisions? (5 years old or older) Answer Entry Date Author No 10/25/2017 2:00 PM Deonna Padilla, BEAM DYER OPERATOR documented in this encounter Plan of [...] documented as of this encounter Care Teams Partner Marketing Manager Relationship Specialty Start Date End Date Michell Trevizo MD [address] [place] [address] PCP - General Internal Medicine 05/29/21 02/25/22 Lacey Perdue MD [address] [phone] Referring Physician Infectious Diseases 06/28/18 documented as of this encounter
--- OUTSIDE RECORDS SUMMARY | 2024-11-23 00:25 | XMS_ITS | Encounter Summary ---
Author Organization [employer] Address [address] [place] [address] Care Team Providers Care Account Development Manager Name Role Phone Lacey Perdue MD Unavailable [phone] Michell Trevizo MD Primary Care Provider [phone] Reason for Referral * Diagnostic Radiology (Routine) - Closed Specialty Diagnoses / Procedures Referred By Contac t Referred To Contact Diagnoses Cervical spondylosis without myelopathy Degeneration of cervical intervertebral disc Procedures C-Arm Fluoro Limited Edilberto Gann MD [address] [place] [address] Phone: tel: fax: Referral ID Status Reason Start Date Expiration Date Visits Re quested Visits Authorized [id number] Closed 07/03/2021 01/04/2023 1 1 Reason for Visit * Reason Comments Injections * Injections (Routine) - Closed Specialty Diagnoses / Procedures Referred By Contac t Referred To Contact Pain Medicine Diagnoses Cervical spondylosis without myelopathy Degeneration of cervical intervertebral disc Procedures WV NJX DX/THER SBST INTRLMNR CRV/THRC W/IMG GDN NOREEN 07/08 Emmanuel Jefferson, BETA TESTER [address] [place] [address] Phone: tel: fax: Edilberto Gann MD [address] [place] [address] Phone: tel: fax: Referral ID Status Reason Start Date Expiration Date Visits Re quested Visits Authorized [id number] Closed 06/27/2021 06/27/2022 1 1 Encounter Details Date Type Department Care Team (Late st Contact Info) Description 07/03/2021 2:00 PM CDT Procedure visit [facility] [address] [place] [phone] Edilberto Gann MD [address] [place] [id number] Cervical spondylosis without myelopathy (Primary Dx); Degeneration of cervical intervertebral disc Social History Tobacco Use Types Packs/Day Years Used Date Smoking Tobacco: Never Smokeless Tobacco: Never Tobacco Cessation:Counseling Given: Yes Alcohol Use Standard Drinks/Week Comments No 0 (1 standard drink = 0.6 oz pur e alcohol) PHQ-2 Answer Date Recorded PHQ-2 Total Score (RETIRED) 0 12/2020 Sex and Gender Information Value Date Recorded [...] have Coronavirus / COVID-19? No / Unsure 06/30/2021 9:38 AM CDT documented as of this encounter Last Filed Vital Signs Vital Sign Reading Time Taken Comments Blood Pressure 140/76 07/03/2021 2:06 PM CDT pos t proc Pulse 80 07/03/2021 2:06 PM CDT Temperature 37.2 ??C (98.9 ??F) 07/03/2021 1:37 PM CD T Respiratory Rate - - Oxygen Saturation 96% 07/03/2021 2:06 PM CDT Inhaled Oxygen Concentration - - Weight - - Height - - Body Mass Index - - documented in this encounter Functional Status * Are you deaf or do you have serious difficulty hearing? Answer Date of Assessment Author No 10/25/2017 2:00 PM Deonna Padilla, WIND SITE MANAGER * Are you blind or do you have serious difficulty seeing, even when wearing glasses? Answer Date of Assessment Author No 10/25/2017 2:00 PM Deonna Padilla, WIND SITE MANAGER * Do you have serious difficulty walking or climbing stairs? (5 years old or older) Answer Date of Assessment Author No 10/25/2017 2:00 PM Deonna Padilla, WIND SITE MANAGER * Do you have difficulty dressing or bathing? (5 years old or older) Answer Date of Assessment Author No 10/25/2017 2:00 PM Deonna Padilla, WIND SITE MANAGER * Because of a physical, mental, or emotional condition, do you have difficulty doing errands alone such as visiting a doctor's office or shopping? (15 years old or older) Answer Date of Assessment Author No 10/25/2017 2:00 PM Deonna Padilla, WIND SITE MANAGER documented as of this encounter Mental Status * Because of a physical, mental, or emotional condition, do you have serious difficulty concentrating, remembering, or making decisions? (5 years old or older) Answer Entry Date Author No 10/25/2017 2:00 PM Deonna Padilla, GEORGE documented in this encounter Patient Instructions * Patient Instructions* Svetlana Gross MA - 07/03/2021 2:00 PM CDT Post Procedure Discharge Instructions ACTIVITY: ?? We recommend that you take it easy the day of the procedure. ?? You may return to work the day after the procedure. ?? You MAY shower. Do NOT immerse in water for the next 4 days such as pools, hot tubs, or bathing. ?? Do NOT drive or operate machinery for 6 hours. ?? Due to the anesthetic used, the extremity on the side of the injection may feel heavy and numb for up to 6 hours. Use caution when ambulating and move slowly to prevent any falls. CARE OF THE INJECTION SITE: ?? You can remove the bandage that is over your injection site 24 hours after your procedure. ?? Keep the area clean with soap and water and dry it carefully. WHAT YOU MAY EXPERIENCE: ?? It is common to have muscle soreness for 7 to 10 days after the procedure. You may even have an increase in you normal pain level due to nerve irritation or steroids themselves, THIS IS NORMAL! ?? PLEASE USE ice packs off and on up to 15 minutes each hour as needed for discomfort. DO NOT USE heating pads for the next 4 days after your procedure. STEROIDS: ?? Steroids typically take a few days up to 2 weeks to reach full effect. Sometimes they may not work at all or they may only last for a short period of time. MEDICATIONS: ?? Continue taking your regular medications as prescribed, we DO NOT want you to stop taking any medication unless told by the provider. ?? If you are on a blood thinner, RESTART your on . COVID-19 VACCINATION: ??? We would recommend waiting a minimum of two weeks from your procedure before receiving a COVID-19 Vaccination. Possible Side-Effects that usually resolve in 24-48 hours: ?? Localized increase in pain. ?? Non-positional headaches resolving within 24 hours. ?? Facial flushing. ?? Anxiety. ?? Sleeplessness. ?? Fever the night of injection. ?? High blood sugars if you are diabetic. ?? A transient decrease in immunity because of the suppressive effect of the steroid WHEN TO CALL YOUR DOCTOR: ?? Any fever greater than 101.5 degrees Fahrenheit or chills. ?? Any bleeding, drainage, redness, severe pain, or swelling at injection site. ?? If you are unable to reach our office, please call your primary physician or go to the EmergencyDepartment. FOLLOW-UP CARE: ?? Your appointments are listed on the first page. Please keep your follow up appointment to discuss future options. If you can not keep the appoinment, please call to reschedule or cancel (as followup spots are limited and can be given to someone else). ?? You are expected to have at least 1 follow up per year, this is needed for documentation purposes for your insurance company. Daily Pain Log: Please complete, keeping in mind injection can take 2 full weeks to reach its peak effect. Date AM/PM No pain Worst pain 0 1 2 3 4 5 6 7 8 9 10 0 1 2 3 4 5 6 7 8 9 10 0 1 2 3 4 5 6 7 8 9 10 0 1 2 3 4 5 6 7 8 9 10 0 1 2 3 4 5 6 7 8 9 10 0 1 2 3 4 5 6 7 8 9 10 0 1 2 3 4 5 6 7 8 9 10 0 1 2 3 4 5 6 7 8 9 10 0 1 2 3 4 5 6 7 8 9 10 0 1 2 3 4 5 6 7 8 9 10 0 1 2 3 4 5 6 7 8 9 10 0 1 2 3 4 5 6 7 8 9 10 0 1 2 3 4 5 6 7 8 9 10 0 1 2 3 4 5 6 7 8 9 10 0 1 2 3 4 5 6 7 8 9 10 0 1 2 3 4 5 6 7 8 9 10 0 1 2 3 4 5 6 7 8 9 10 0 1 2 3 4 5 6 7 8 9 10 0 1 2 3 4 5 6 7 8 9 10 0 1 2 3 4 5 6 7 8 9 10 0 1 2 3 4 5 6 7 8 9 10 0 1 2 3 4 5 6 7 8 9 10 0 1 2 3 4 5 6 7 8 9 10 0 1 2 3 4 5 6 7 8 9 10 0 1 2 3 4 5 6 7 8 9 10 0 1 2 3 4 5 6 7 8 9 10 0 1 2 3 4 5 6 7 8 9 10 0 1 2 3 4 5 6 7 8 9 10 [facility] MD Emmanuel Bains NP-C documented in this encounter Progress Notes * Svetlana Gross MA - 07/03/2021 2:00 PM CDT Patient is here for a procedure. Patient denies any recent fevers, antibiotics, or steroids. Patient denies taking blood thinners except ASA. Patient has not had the COVID-19 vaccination within the last two weeks. Patient denies having an allergy to chlorhexidine, Hibiclens, contrast, or latex. Human Resources Training Manager: documented in this encounter Procedure Notes * Edilberto Gann MD - 07/03/2021 2:00 PM CDTAssociated Order(s): Cervical Epidural Steroid Injection w/ IMG ([id number]) Post-Procedure Diagnose(s): Cervical spondylosis without myelopathy; Degeneration of cervical intervertebral disc Cervical Epidural Steroid Injection w/ IMG ([id number]) Date/Time: 07/03/2021 1:33 PM Performed by: Edilberto Gann MD Authorized by: Edilberto Gann MD [facility] Protocol: Verbal consent obtained?: Yes Written consent obtained?: Yes Risks and benefits: Risks, benefits and alternatives were discussed Consent given by: Patient Patient states understanding of procedure being performed: Yes Patient's understanding of procedure matches consent: Yes Procedure consent matches procedure scheduled: Yes Patient identity confirmed: Verbally with patient and provided demographic data Time out: Immediately prior to the procedure a time out was called (A time out verifies correct patient, procedure, equipment, information support project manager and site/side marked as required.) Preparation: Preparation: Patient was prepped and draped in usual sterile fashion Anesthesia: Local anesthesia used?: No Sedation: Patient sedated: No Post-procedure: Patient tolerance: Patient tolerated the procedure well with no immediate complications Procedure: C5-6 Interlaminar Epidural Steroid Injection Medical Necessity: Edilberto Hawley is a 65 y.o.male who has failed conservative therapy prior to injections and has not been able to partake independently with activities of daily living. As such, the patient's ability to function has been limited and quality of life diminished. Preoperative Diagnosis: Cervical radiculopathy, Cervical spondylosis, Cervical degenerative disc disease Post Operative Diagnosis Cervical radiculopathy, Cervical spondylosis, Cervical degenerative disc disease Procedure Technique: All risks, benefits, and alternatives were discussed. Risks including, but not limited to, bleeding, infection, epidural hematoma or abscess formation resulting in paraplegia, allergic reaction to medications injected, nerve damage, spinal fluid leakage with headache, vessel injury, spinal cord injury, and lack of pain response were also reviewed. Patient verbalized understanding with all questions answered and an informed consent was obtained. Preparation: Chlorhexidine x 2. Local infiltration: Lidocaine 1% with 27 gauge 1.5 inch needle. Level Injected: C5-6. Contrast: Omnipaque 240 mg/mL, 2 mL (48 mL wasted). Needle Size: 18g x 3.5 inch epidural needle. Medication Injected: Methylprednisolone 80 mg diluted with Preservative Free Normal Saline, for a total volume of 4 mL. The patient was brought to the procedure room and placed in the prone position. A time out was performed by the nurse and physician in the room with attention directed to the patient's full name, , and allergy information. Next, the patient's cervical and thoracic area was prepped and draped in the usual sterile fashion. While wearing a surgical cap, mask, and sterile gloves, fluoroscopy was used to identify the desired interlaminar space with A/P fluoroscopic images. Local infiltration of the skin was performed. Next, using AP and contralateral oblique fluoroscopic guidance, a Tuohy needle was advanced into the ligamentum flavum and towards the epidural space. Once the epidural space was confirmed with [id number] to air, and after negative aspiration for blood and CSF, the contrast agent listed above was injected and showed proper epidural spread in both the AP and contralateral oblique views. No vascular uptake was appreciated with live fluoroscopy. Next, the medication listed above was injected. No paresthesias were ever illicted. The patient denied any ringing in the ears or numbness around the mouth. Next, 1 mL of 1% lidocaine was injected through the needle while removing it to clear the tract. The skin was cleaned and a sterile bandage was applied over the needle entry site. The patient tolerated the procedure well without evidence of procedural complication,and was taken to the recovery area prior to discharge. Outcome/Post Operative Education: The patient tolerated this procedure well. The patient was monitored for 20 minutes. Functional strength was preserved to both upper extremities and the patient was able to ambulate. A written discharge form with our contact information was given to the patient. Additionally, the patient was told that if there was any increased pain in the neck or upper extremity, any fever/chills, or any bowel or bladder incontinence was experienced, to contact our office and/or report to the nearest emergencydepartment. Pain Assessment Pain Score: 7 (pre proc) Pain Assessment Pain Score: 1 (post proc) This document was dictated using Click Contact; federal law clerk variances may occur. documented in this encounter Plan of Treatment Not on file documented as of this encounter Goals Goal Patient Goal Type Associated Problems Recent Progress Patient-Stated? Author Blood Pressure < 140/90 Blood Pressure 134/86(2022 2:25 PM CDT) No Leonard Jasso APRN documented as of this encounter Procedures Procedure Name Priority Date/Time Associated Diagnosis Comments XR C-ARM FLUORO LIMITED Routine 07/03/2021 2:07 PM CDT Cervical spondylosis without myelopathy Degeneration of cervical intervertebral disc WV NJX DX/THER SBST INTRLMNR CRV/THRC W/IMG GDN Routine 07/03/2021 1:33 PM CDT Cervical spondylosis without myelopathy Degeneration of cervical intervertebral disc documented in this encounter Results * C-Arm Fluoro Limited (07/03/2021 2:07 PM CDT) Anatomical Region Laterality Modality Computed Radiogr aphy Narrative 07/03/2021 2:07 PM CDT See Office Visit for documentation. us Edilberto [facility] ORDERAB LES Final Result * WV NJX DX/THER SBST INTRLMNR CRV/THRC W/IMG GDN (07/03/2021 1:33 PM CDT) Narrative Edilberto Gann MD - 07/03/2021 1:33 PM CDT Edilberto Gann MD ? 07/03/2021 ??2:13 PM Cervical Epidural Steroid Injection w/ IMG ([id number]) Date/Time: 07/03/2021 1:33 PM Performed by: Edilberto Gann MD Authorized by: Edilberto Gann MD [facility] Protocol: ?Verbal consent obtained?: Yes ?Written consent obtained?: Yes ?Risks and benefits: Risks, benefits and alternatives were discussed ?Consent given by: ??Patient ??Patient states understanding of procedure being performed: Yes ?Patient's understanding of procedure matches consent: Yes ?Procedure consent matches procedure scheduled: Yes ?Patient identity confirmed: ??Verbally with patient and provided demographic data ??Time out: Immediately prior to the procedure a time out was called ?(A time out verifies correct patient, procedure, equipment, information support project manager and site/side marked as required.) Preparation: ?Preparation: Patient was prepped and draped in usual sterile fashion ?? Anesthesia: ??Local anesthesia used?: No ?? Sedation: ?Patient sedated: No ?? Post-procedure: ??Patient tolerance: ??Patient tolerated the procedure well with no immediate complications us Edilberto Gann MD PROCEDURE/MINOR SURGICAL ORDER RASHMI Final Result documented in this encounter Visit Diagnoses Diagnosis Cervical spondylosis without myelopathy- Primary Degeneration of cervical intervertebral disc documented in this encounter Administered Medications Inactive Administered Medications - up to 3 most recent administrations Medication Order MAR Action Action Date Dose Rate Site iohexol (OMNIPAQUE) 240 MG/ML injection 2 mL, Injection, ONCE, On Kaycee 07/03/21 at 1400, For 1 doseIndications:Cervical spondylosis without myelopathy,Degeneration of cervical intervertebral disc Given 07/03/2021 1:41 PM CDT 2 mLs methylPREDNISolone acetate (DEPO-MEDROL) injection 80 mg, Epidural, ONCE, On Kaycee 07/03/21 at 1400, For 1 doseIndications:Cervical spondylosis without myelopathy,Degeneration of cervical intervertebral disc Given 07/03/2021 1:41 PM CDT 80 mg documented in this encounter Additional Health Concerns Assessment Noted Time A fall risk assessment has been complete d for the patient 04/16/2021 8:08 AM CDT A Body Mass Index follow-up plan has been documented for the patient 06/30/2021 12:12 PM CDT documented as of this encounter Care Teams Account Development Manager Relationship Specialty Start Date End Date Michell Trevizo MD [address] [place] [address] PCP - General Internal Medicine 05/29/21 02/25/22 Lacey Perdue MD [address] [phone] Referring Physician Infectious Diseases 06/28/18 documented as of this encounter
--- OUTSIDE RECORDS SUMMARY | 2024-11-23 00:25 | XMS_ITS | Encounter Summary ---
Author Organization [employer] Address [address] [place] [address] Care Team Providers Care Patrol Driver Name Role Phone Lacey Perdue MD Unavailable [phone] Michell Trevizo MD Primary Care Provider [phone] Encounter Details Date Type Department Care Team (Latest Contact Info) Description 09/15/2021 Travel Social History Tobacco Use Types Packs/Day [...] have Coronavirus / COVID-19? No / Unsure 09/15/2021 10:01 AM CDT documented as of this encounter Functional Status * Are you deaf or do you have serious difficulty hearing? Answer Date of Assessment Author No 10/25/2017 2:00 PM Deonna Padilla ARNP * Are you blind or do you have serious difficulty seeing, even when wearing glasses? Answer Date of Assessment Author No 10/25/2017 2:00 PM FEDERAL DISTRICT CLERK Galvan, Am y S, INTERLOCKING MACHINE OPERATOR * Do you have serious difficulty walking or climbing stairs? (5 years old or older) Answer Date of Assessment Author No 10/25/2017 2:00 PM Deonna Padilla S, INTERLOCKING MACHINE OPERATOR * Do you have difficulty dressing or bathing? (5 years old or older) Answer Date of Assessment Author No 10/25/2017 2:00 PM JOHN Galvan Am y S, INTERLOCKING MACHINE OPERATOR * Because of a physical, mental, or emotional condition, do you have difficulty doing errands alone such as visiting a doctor's office or shopping? (15 years old or older) Answer Date of Assessment Author No 10/25/2017 2:00 PM JOHN Galvan Am y S, INTERLOCKING MACHINE OPERATOR documented as of this encounter Mental Status * Because of a physical, mental, or emotional condition, do you have serious difficulty concentrating, remembering, or making decisions? (5 years old or older) Answer Entry Date Author No 10/25/2017 2:00 PM Deonna Padilla S, INTERLOCKING MACHINE OPERATOR documented in this encounter Plan [...] documented as of this encounter Care Teams Patrol Driver Relationship Specialty Start Date End Date Michell Trevizo MD [facility] [place] [address] PCP - General Internal Medicine 05/29/21 02/25/22 Lacey Perdue MD [address] [phone] Referring Physician Infectious Diseases 06/28/18 documented as of this encounter
--- OUTSIDE RECORDS SUMMARY | 2024-11-23 00:25 | XMS_ITS | Encounter Summary ---
Author Organization [employer] Address [address] [place] [address] Care Team Providers Care Purler Name Role Phone Lacey Perdue MD Unavailable [phone] Michell Trevizo MD Primary Care Provider [phone] Reason for Visit * Reason Onset Date Comments Medication Refill 09/23/2021 Encounter Details Date Type Department Care Team (Late st Contact Info) Description 09/23/2021 Refill [facility] ENT [address] [place] [address] Eve Ward, SUPERVISOR [employer] [address] [place] [address] Social History Tobacco Use Types Packs/Day Years [...] Author No 10/25/2017 2:00 PM Deonna Padilla, TERMITE INSPECTOR * Are you blind or do you have serious difficulty seeing, even when wearing glasses? Answer Date of Assessment Author No 10/25/2017 2:00 PM Deonna Padilla S, TERMITE INSPECTOR * Do you have serious difficulty walking or climbing stairs? (5 years old or older) Answer Date of Assessment Author No 10/25/2017 2:00 PM Deonna Padilla S, TERMITE INSPECTOR * Do you have difficulty dressing or bathing? (5 years old or older) Answer Date of Assessment Author No 10/25/2017 2:00 PM Deonna Padilla, TERMITE INSPECTOR * Because of a physical, mental, or emotional condition, do you have difficulty doing errands alone such as visiting a doctor's office or shopping? (15 years old or older) Answer Date of Assessment Author No 10/25/2017 2:00 PM Deonna Padilla, TERMITE INSPECTOR documented as of this encounter Mental Status * Because of a physical, mental, or emotional condition, do you have serious difficulty concentrating, remembering, or making decisions? (5 years old or older) Answer Entry Date Author No 10/25/2017 2:00 PM Deonna Padilla TERMITE INSPECTOR documented in this encounter Plan of [...] documented as of this encounter Care Teams Purler Relationship Specialty Start Date End Date Michell Trevizo MD [address] [place] [address] PCP - General Internal Medicine 05/29/21 02/25/22 Lacey Perdue MD [address] [address] Referring Physician Infectious Diseases 06/28/18 documented as of this encounter
--- OUTSIDE RECORDS SUMMARY | 2024-11-23 00:25 | XMS_ITS | Encounter Summary ---
Author Organization [employer] Address [address] [place] [address] Care Team Providers Care Adjudication Specialist Name Role Phone Lacey Perdue MD Unavailable [phone] Michell Trevizo MD Primary Care Provider [phone] Reason for Referral * Diagnostic Radiology (Routine) - Closed Specialty Diagnoses / Procedures Referred By Contjessica t Referred To Contact Radiology Diagnoses Elevated liver enzymes Procedures US Abdomen Ltd Michell Trevizo MD [address] [place] [address] Phone: tel: fax: Referral ID Status Reason Start Date Expiration Date Visits Re quested Visits Authorized [id number] Closed 06/30/2021 01/01/2023 1 1 Reason for Visit * Reason Comments Follow-up 1 month Encounter Details Date Type Department Care Team (Latest Contact Info) Description 06/30/2021 10:15 AM CDT Office Visit [facility] Internal Medicine [address] [place] [phone] Michell Trevizo MD [address] [place] [phone] Elevated liver enzymes (Primary Dx); Encounter for long-term current use of medication; Need for hepatitis C screening test; Chronic bilateral low back pain with left-sided sciatica; Spinal stenosis, unspecified spinal region; Hyperlipidemia, unspecified hyperlipidemia type; prison current use of opiate analgesic Social History Tobacco Use Types Packs/Day Years [...] Sign Reading Time Taken Comments Blood Pressure 118/72 06/30/2021 10:15 AM CDT Pulse 80 06/30/2021 10:15 AM CDT Temperature - - Respiratory Rate - - Oxygen Saturation - - Inhaled Oxygen Concentration - - Weight 88.9 kg (196 lb) 06/30/2021 10:15 AM CDT Height - - Body Mass Index 27.34 02/25/2021 9:01 AM CDT documented in this encounter Functional [...] Deonna Padilla ARNP documented in this encounter Patient Instructions * Patient Instructions* Michell Trevizo MD - 06/30/2021 10:15 AM CDT 1 mo follow up CMP Liver US Hepatitis C Screen Metformin? - patient declined will try lifestyle modification Drug Screen documented in this encounter Progress Notes * Meme Chen LPN - 06/30/2021 10:15 AM CDT Body mass index is 27.34 kg/m??. Edilberto received nutritional counseling in the following manner: lifestyle education regarding diet Edilberto received physical activity counseling in the following manner: reassuring about exercise * Michell Trevizo MD - 06/30/2021 10:15 AM CDT General Internal Medicine Patient Note [facility] CC: Chief Complaint Patient presents with ??? Follow-up 1 month History of Present Illness: Edilberto Durand is a 65 y.o. male presenting to clinic for follow up. We discussed his drug profile which appeared positive for benzodiazepines which he did not discloseto me. I inquired where he received these from he denies taking any of his 's medications. I noted that this is unacceptable we will repeat drug testing deferred appears again we will have further issues I will not be able to prescribe further medication. We also reviewed his lab work that showed elevated liver enzymes. He does endorse a Hx of significant alcohol intake previously.Beer/Whiskey/Vodka. Drugs as well - Cocaine, Crystal Meth. Tried Hypnosis - [facility] in [place]. Patient reports that he is no longer is drinking alcohol or abusing street. Advised him the risks of chronic opiate use and how these substances are very addictive and have led to an epidemic in our nation. I cautioned him with further use of opioids and acetaminophen especially given his elevated liver enzymes. Unsure if he has been tested for hepatitis he notes his brother had hepatitis and liver cancer. We discussed his diabetes and I encouraged beginning a medication. He is resistant and wants to trylifestyle modifications first. Advised to avoid high carbohydrate foods and candies. He is taking apple cider vinegar. He is following up with Dr. Gann and Dr. Kae Marques regarding his neck and his wrist. ROS: Pertinent positives and negatives as mentioned in HPI Past Medical/Surgical/Family/Social History: Reviewed and updated in [facility] History tab Medications: Reviewed and updated in [facility] Medications tab Current Outpatient Medications Medication Sig Dispense Refill ??? amitriptyline (ELAVIL) 100 MG tablet Take 1 tablet by mouth daily. 30 tablet 5 ??? Ascorbic Acid (VITAMIN C) 500 MG tablet Take 500 mg by mouth daily. ??? aspirin 325 MG tablet Take 325 mg by mouth. ??? baclofen (LIORESAL) 10 MG tablet Take 1 tablet by mouth 3 (three) times daily as needed (musclespasms.). 90 tablet 0 ??? diclofenac sodium (VOLTAREN) 50 MG EC tablet Take 1 tablet by mouth 2 (two) times daily. 60 tablet 5 ??? Multiple Vitamins-Minerals (ONE DAILY MULTIVITAMIN ADULT PO) Take by mouth. ??? NARCAN 4 MG/0.1ML LIQD nasal liquid USE DIRECTED. 2 each 1 ??? omeprazole 20 MG tablet Take 2 tablets by mouth every morning before breakfast. 60 tablet 5 ??? oxyCODONE-acetaminophen (PERCOCET) 10-325 MG per tablet Take 1 tablet by mouth every 6 (six) hours as needed for Pain. 120 tablet 0 ??? Probiotic Product (SOLUBLE FIBER/PROBIOTICS PO) Take 1 tablet by mouth daily. ??? vitamin D (CHOLECALCIFEROL) 1000 units tablet Take 1,000 Units by mouth daily. ??? zinc sulfate (ZINCATE) 220 (50 Zn) MG capsule Take 220 mg by mouth daily. ??? tamsulosin HCl (FLOMAX) 0.4 MG capsule Take 1 capsule by mouth daily. 30 capsule 3 No current facility-administered medications for this visit. Allergies: Reviewed and updated in Epic Allergies tab BP 118/72 Pulse 80 Wt 88.9 kg (196 lb) BMI 27.34 kg/m?? Physical Exam Constitutional: Well-nourished, and in no distress. HENT: Head: Normocephalic and atraumatic. Eyes: Pupils are equal, round, and reactive to light. Conjunctivae and EOM are normal. Neck: Normal range of motion. Neck supple. Cardiovascular: Normal rate, regular rhythm and normal heart sounds. Pulmonary/Chest: Effort normal and breath sounds normal. Abdominal: Soft. There is no abdominal tenderness. Musculoskeletal: Normal range of motion. Neurological: CN grossly intact. Gait normal. Skin: Skin is warm and dry. Psychiatric: Affect normal. Labs/Imaging: Reviewed Assessment & Plan Diagnosis: 1. Elevated liver enzymes 2. Encounter for long-term current use of medication 3. Need for hepatitis C screening test Medications provided Orders Placed This Encounter Medications ??? tamsulosin HCl (FLOMAX) 0.4 MG capsule Sig: Take 1 capsule by mouth daily. Dispense: 30 capsule Refill: 3 Additional Orders: Orders Placed This Encounter Procedures ??? US Abdomen Ltd ??? Comprehensive metabolic panel ??? Hepatitis C antibody ??? Pain Management Profile 1 With Confirm, With D/L, Urine Pain contract to be filled out Liver imaging for transaminitis Hepatitis C testing Follow-up CMP and pain profile If persistent benzodiazepines, I will not be able to prescribe further medication or continue care as our pain contract will have been breached. Encouraged Covid vaccination, patient is not agreeable at this time. I spent a total of 60 minutes on 06/30/2021 reviewing the record, performing a face to face visit, preparing, discussing the treatment, and creating documentation of the encounter. This time was separate from that spent performing other billable services. Return to clinic in 1 month Michell Trevizo MD Internal Medicine Sleep Medicine Obesity Medicine documented in this encounter Miscellaneous Notes * Addendum Note - Michell Trevizo MD - 06/30/2021 10:15 AM CDTAddended by: MICHELL TREVIZO on: 07/01/2021 12:59 PM Modules accepted: Orders documented in this encounter Plan of Treatment Not on file documented as of this encounter Goals Goal Patient Goal Type Associated Problems Recent Progress Patient-Stated? Author Blood Pressure < 140/90 Blood Pressure 134/86(2022 2:25 PM CDT) No Leonard Jasso APRN documented as of this encounter Results * (ABNORMAL) Pain Management Profile 1 With Confirm, With D/L, Urine (07/28/2021 9:58 AM CDT) medMATCH Summary SEE NOTE [facility] Comment: ?Prescribed ?Prescribed ?Not Prescribed ?Consistent ?Inconsistent ?Inconsistent ?Oxycodone ? [KS] Prescribed Drug 1 Oxycodone QU [facility] Comment: [[place]] Testing performed at: [place], [facility], [address] [place], [address], Statistical Developer: Osvaldo Rios D.O., MPH Amphetamines NEGATIVE <500 ng/mL [facility] Comment:[CB] Barbiturates NEGATIVE <300 ng/mL [facility] Comment:[CB] Benzodiazepines NEGATIVE <100 ng/mL [facility] Comment:[CB] Cocaine Metabolite NEGATIVE <150 ng/mL [facility] Comment:[CB] Marijuana Metabolite NEGATIVE <20 ng/mL [facility] Comment:[CB] Methadone NEGATIVE <100 ng/mL [facility] Comment:[CB] Opiates NEGATIVE CONFIRMED <100 ng/mL [facility] Comment:[CB] Codeine NEGATIVE <50 ng/mL [facility] Comment:[CB] Hydrocodone NEGATIVE <50 ng/mL [facility] Comment:[CB] Hydromorphone NEGATIVE <50 ng/mL [facility] Comment:[CB] Morphine UR NEGATIVE <50 ng/mL [facility] Comment:[CB] Norhydrocodone NEGATIVE <50 ng/mL [facility] Comment:[CB] Opiates Comments SEE NOTE [facility] Comment: See LDT Notes [CB] Oxycodone POSITIVE(A) <100 ng/mL [facility] Comment:[CB] Noroxycodone, UR 9,123(H) <50 ng/mL [facility] Comment:[CB] MEDMATCH NOROXYCODONE CONSISTENT [facility] Comment:[CB] Oxycodone 9,084(H) <50 ng/mL [facility] Comment:[CB] medMATCH Oxycodone CONSISTENT [facility] Comment:[CB] Oxymorphone 9,127(H) <50 ng/mL [facility] Comment:[CB] medMATCH Oxymorphone CONSISTENT [facility] Comment:[CB] Oxycodone Comments SEE NOTE Q [facility] Comment: See Oxycodone Notes, LDT Notes [CB] Phencyclidine NEGATIVE <25 ng/mL [facility] Comment:[CB] Creatinine Urine 242.0 > or = 20.0 mg/dL [facility] Comment:[CB] pH 5.1 4.5 - 9.0 [facility] Comment:[CB] Oxidant NEGATIVE <200 mcg/mL [facility] Comment:[CB] Comments: SEE NOTE [facility] Comment: This drug testing is for [...] analytical performance characteristics have been determined by [employer] [facility]. It has not been cleared or approved by the FDA. This assay has been validated pursuant to the CLIA regulations and is used for clinical purposes. medMATCH(R) enables providers to identify if drug use is consistent or inconsistent with a corresponding prescribed medication(s) list. Healthcare Providers needing Interpretation assistance, please contact us at [phone] ( ) M-F, 8am to 10pm EST [[place]] Urine 07/28/2021 9:58 AM CDT 07/29/2021 7:11 AM CDT Narrative [facility] - 07/31/2021 12:45 PM CDT Testing performed at: [place], [facility], [address] [place], [address], Statistical Developer: Osvaldo Rios D.O., MPH Michell Trevizo MD URINE ORDERABLES Final Result Performing Organization Address City/State/[facility] Co de Phone Number [facility] [address] [place] [address] [phone] * Hepatitis C antibody (07/28/2021 9:51 AM CDT) Hep C Ab Nonreactive Nonreactive [facility] Blood 07/28/2021 9:51 AM CDT 07/28/2021 10:33 AM CDT Comment:- Narrative [facility] - 07/30/2021 11:11 AM CDT Testing performed at [facility], [address] [place] [address]. CLIA [id number] Phone [phone] Ext [phone] ??Statistical Developer Shant Rivas MD us Michell Trevizo MD LAB BLOOD ORDERABLES Final Res ult [facility] [address] [phone] * (ABNORMAL) Comprehensive metabolic panel (07/28/2021 9:51 AM CDT) Glucose 106(H) 60 - 100 mg/dL [facility] Comment: Fasting Plasma Glucose (FPG) ?<100 MG/DL Impaired Fasting Glucose (IFG) ? 100-125 MG/DL Provisional Diagnosis of Diabetes Mellitus ?? > or = 126 MG/DL (Diagnosis Must Be Confirmed) BUN 12 8 - 26 mg/dL [facility] Creatinine 0.8 0.7 - 1.4 mg/dL [facility] Glomerular Filtration Rate Estimate 91 >80 mL/min/1.7 3mm2 [facility] Glomerular Filtration Rate Estimate- 105 >80 mL/min/1.7 3mm2 [facility] Comment:The estimated GFR george s not been validated for women or patients with serious comorbid conditions, or with extremes of body size, muscle mass, or nutritional status. Calcium 9.0 8.4 - 10.2 mg/dL [facility] Sodium 138 136 - 145 mmol/L [facility] Potassium 4.0 3.4 - 4.9 mmol/L [facility] Chloride 103 99 - 111 mmol/L [facility] CO2 25.5 21.0 - 32.0 mmol/L [facility] Albumin 4.0 3.5 - 5.0 g/dL [facility] Total Protein 7.6 6.1 - 8.0 g/dL [facility] Bilirubin Total 0.5 0.2 - 1.2 mg/dL [facility] Alkaline Phosphatase 72 40 - 150 U/L [facility] AST 50(H) 5 - 34 U/L [facility] ALT 62(H) 0 - 55 u/L [facility] Blood 07/28/2021 9:51 AM CDT 07/28/2021 10:33 AM CDT Comment:- Narrative [facility] - 07/28/2021 4:04 PM CDT Testing performed at [facility], [address] [place] [address]. CLIA [id number] Phone [phone] Ext [phone] ??Statistical Developer Shant Rivas MD Michell Trevizo MD LAB BLOOD ORDERABLES Final Res ult [facility] [address] [place] [address] [phone] * US Abdomen Ltd (07/15/2021 7:50 AM CDT) Anatomical Region Laterality Modality Ultrasound 07/15/2021 7:50 AM CDT Narrative 07/15/2021 8:34 AM CDT [address] ??[address] DIAGNOSTIC IMAGING Name: EDILBERTO DURAND ??Ordering Phys: MICHELL TREVIZO Date of : 1955 ?Gender: Bon ??Accession Number: [id number] EXAM DESCRIPTION: US ABDOMEN LIMITED REASON FOR STUDY: Elevated liver enzymes, labs drawn mid-May TECHNIQUE: Ultrasound of the right upper quadrant of the abdomen was performed with grayscale and color doppler. COMPARISON: Prior abdominal ultrasound dated 05/15/2020 FINDINGS: PANCREAS: Limited visualization due to overlying bowel gas. LIVER: Liver is mildly enlarged measuring 17.4 cm in greatest transverse diameter with mild diffuse increased echogenicity throughout suggestive of hepatic steatosis. ??No discrete hepatic mass. GALLBLADDER: The gallbladder appears to be unremarkable. ??No cholelithiasis. ??No gallbladder wall thickening or pericholecystic fluid. ??No positive sonographic Barrios's sign reported. BILIARY: There is no intrahepatic or extrahepatic biliary ductal dilation. ??Common bile duct measures 0.3 cm in diameter. RIGHT KIDNEY: Normal size. ??Measures 11.1 cm in length. IMPRESSION: Redemonstration of mild hepatomegaly with mild diffuse hepatic steatosis. ??No concerning hepatic mass. Unremarkable sonographic evaluation of the gallbladder. THIS IS AN ELECTRONICALLY VERIFIED FINAL REPORT 07/15/2021 8:32 AM - Electronically signed by Kerwin Malik M.D. Procedure Note Kerwin Malik MD - 07/15/2021 [place] [address] DIAGNOSTIC IMAGING Name: EDILBERTO DURAND Ordering Phys: MICHELL TREVIZO Date of : 1955 Gender: M Accession Number: [id number] EXAM DESCRIPTION: US ABDOMEN LIMITED REASON FOR STUDY: Elevated liver enzymes, labs drawn mid-May TECHNIQUE: Ultrasound of the right upper quadrant of the abdomen was performed with grayscale and color doppler. COMPARISON: Prior abdominal ultrasound dated 05/15/2020 FINDINGS: PANCREAS: Limited visualization due to overlying bowel gas. LIVER: Liver is mildly enlarged measuring 17.4 cm in greatest transverse diameter with mild diffuse increased echogenicity throughout suggestive of hepatic steatosis. No discrete hepatic mass. GALLBLADDER: The gallbladder appears to be unremarkable. No cholelithiasis. No gallbladder wall thickening or pericholecystic fluid. No positive sonographic Barrios's sign reported. BILIARY: There is no intrahepatic or extrahepatic biliary ductal dilation. Common bile duct measures 0.3 cm in diameter. RIGHT KIDNEY: Normal size. Measures 11.1 cm in length. IMPRESSION: Redemonstration of mild hepatomegaly with mild diffuse hepatic steatosis. No concerning hepatic mass. Unremarkable sonographic evaluation of the gallbladder. THIS IS AN ELECTRONICALLY VERIFIED FINAL REPORT 07/15/2021 8:32 AM - Electronically signed by Kerwin Malik M.D. 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 current use of opiate analgesic Encounter for long-term (current) use of other medications Elevated liver enzymes Nonspecific elevation of levels of transaminase or lactic acid dehydrogenase (LDH) documented in this encounter Additional Health Concerns Assessment Noted Time A fall risk assessment has been complete d for the patient 04/16/2021 8:08 AM CDT A Body Mass Index follow-up plan has been documented for the patient 06/30/2021 12:12 PM CDT documented as of this encounter Care Teams Adjudication Specialist Relationship Specialty Start Date End Date Michell Trevizo MD [address] [place] [address] PCP - General Internal Medicine 05/29/21 02/25/22 [place] [address] [place] [phone] Referring Physician Infectious Diseases 06/28/18 documented as of this encounter
--- OUTSIDE RECORDS SUMMARY | 2024-11-23 00:25 | XMS_ITS | Encounter Summary ---
Author Organization [employer] Address [address] [place] [address] Care Team Providers Care Pick Out Hand Name Role Phone Lacey Perdue MD Unavailable [phone] Michell Trevizo MD Primary Care Provider [phone] Reason for Referral * Diagnostic Radiology (Routine) - Closed Specialty Diagnoses / Procedures Referred By Contac t Referred To Contact Diagnoses Cervicalgia Cervical spondylosis without myelopathy Procedures C-Arm Fluoro Limited Edilberto Gann MD [address] [place] [address] Phone: tel: fax: Referral ID Status Reason Start Date Expiration Date Visits Re quested Visits Authorized [id number] Closed 08/27/2021 02/28/2023 1 1 Reason for Visit * Reason Comments Injections * Injections (Routine) - Closed Specialty Diagnoses / Procedures Referred By Contac t Referred To Contact Pain Medicine Diagnoses Cervicalgia Cervical spondylosis without myelopathy Procedures ME NJX DX/THER SBST INTRLMNR CRV/THRC W/IMG GDN C5-6 NOREEN 08/19 Emmanuel Jefferson, ALFONSO [address] [place] [address] Phone: tel: fax: Edilberto Gann MD [address] [place] [address] Phone: tel: fax: Referral ID Status Reason Start Date Expiration Date Visits Re quested Visits Authorized [id number] Closed 08/18/2021 08/18/2022 1 1 Encounter Details Date Type Department Care Team (Late st Contact Info) Description 08/27/2021 10:00 AM CDT Procedure visit [facility] [address] [place] [id number] Edilberto Gann MD [address] [place] [id number] Cervicalgia (Primary Dx); Cervical spondylosis without myelopathy Social History Tobacco Use Types Packs/Day Years [...] have Coronavirus / COVID-19? No / Unsure 07/28/2021 8:58 AM CDT documented as of this encounter Last Filed Vital Signs Vital Sign Reading Time Taken Comments Blood Pressure 112/78 08/27/2021 10:17 AM CDT Pulse 74 08/27/2021 10:17 AM CDT Temperature 37 ??C (98.6 ??F) 08/27/2021 9:57 AM CDT Respiratory Rate - - Oxygen Saturation 95% 08/27/2021 10:17 AM CDT Inhaled Oxygen Concentration - - [...] Author No 10/25/2017 2:00 PM Deonna Padilla, DIGITAL SALES DIRECTOR * Do you have serious difficulty walking or climbing stairs? (5 years old or older) Answer Date of Assessment Author No 10/25/2017 2:00 PM Deonna Padilla, DIGITAL SALES DIRECTOR * Do you have difficulty dressing or bathing? (5 years old or older) Answer Date of Assessment Author No 10/25/2017 2:00 PM Deonna Padilla, DIGITAL SALES DIRECTOR * Because of a physical, mental, or [...] this encounter Patient Instructions * Patient Instructions* Maris Linder RN - 08/27/2021 10:00 AM CDT Post Procedure Discharge Instructions ACTIVITY: ?? [...] documented in this encounter Progress Notes * Maris Linder RN - 08/27/2021 10:00 AM CDT Patient is here for a procedure. Patient denies any recent fevers, antibiotics, or steroids. Patient denies taking blood thinners except ASA. Patient has not had the COVID-19 vaccination within the last two weeks. Patient denies having an allergy to chlorhexidine, Hibiclens, contrast, or latex. Hospital Social Worker: documented in this encounter Procedure Notes * Edilberto Gann MD - 08/27/2021 10:00 AM CDTAssociated Order(s): Cervical Epidural Steroid Injection w/ IMG ([id number]) Post-Procedure Diagnose(s): Cervicalgia; Cervical spondylosis without myelopathy Cervical Epidural Steroid Injection w/ IMG ([id number]) Date/Time: 08/27/2021 9:53 AM Performed by: Edilberto Gann MD Authorized by: Edilberto Gann MD [place] Protocol: Verbal consent obtained?: Yes Written consent [...] time out verifies correct patient, procedure, equipment, production support consultant and site/side marked as required.) Preparation: Preparation: Patient was prepped and draped in usual sterile fashion Anesthesia: Local anesthesia used?: No Sedation: Patient sedated: No Post-procedure: Patient tolerance: Patient tolerated the procedure well with no immediate complications Procedure: C5-6 Interlaminar Epidural Steroid Injection ?? Medical Necessity: Edilberto Hawley is a 65 y.o.male who has failed conservative therapy prior to injections and has not been able to partake independently with activities of daily living. As such, the patient's ability to function has been limited and quality of life diminished. ?? Preoperative Diagnosis: Cervical radiculopathy, Cervical spondylosis, Cervical degenerative disc disease ?? Post Operative Diagnosis Cervical radiculopathy, Cervical spondylosis, Cervical degenerative disc disease ?? Procedure Technique: All risks, benefits, and alternatives were discussed. Risks including, but not limited to, bleeding, infection, epidural hematoma or abscess formation resulting in paraplegia, allergic reaction to medications injected, nerve damage, spinal fluid leakage with headache, vessel injury, spinal cord injury, and lack of pain response were also reviewed. Patient verbalized understanding with all questions answered and an informed consent was obtained. Preparation:?? Chlorhexidine x 2. Local infiltration:??Lidocaine 1% with 27 gauge 1.5 inch needle. Level Injected:??C5-6. Contrast:??Omnipaque 240 mg/mL, 2 mL (48 mL wasted).?? Needle Size:??18g x 3.5 inch epidural needle.?? Medication Injected:??Methylprednisolone 80 mg diluted with??Preservative Free Normal Saline, for??a total volume of 4 mL. ?? The patient was brought to the procedure [...] Once the epidural space was confirmed with [id number] to air, and after negative aspiration for [...] taken to the recovery area prior to discharge.? Outcome/Post Operative Education: The patient tolerated this [...] the nearest emergencydepartment. Pain Assessment Pain Score: 8 (pre proc) Pain Assessment Pain Score: 5 (Moderate Pain) ?? This document was dictated using [employer]; plant nursery worker variances may occur. documented in this encounter Plan of Treatment Not on file documented as of this encounter Goals Goal Patient Goal Type Associated Problems Recent Progress Patient-Stated? Author Blood Pressure < 140/90 Blood Pressure 134/86(2022 2:25 PM CDT) No Leonard Jasso W, ANGIE documented as of this encounter Procedures Procedure Name Priority Date/Time Associated Diagnosis Comments XR C-ARM FLUORO LIMITED Routine 08/27/2021 10:18 AM CDT Cervicalgia Cervical spondylosis without myelopathy ME NJX DX/THER SBST INTRLMNR CRV/THRC W/IMG GDN Routine 08/27/2021 9:53 AM CDT Cervicalgia Cervical spondylosis without myelopathy documented in this encounter Results * C-Arm Fluoro Limited (08/27/2021 10:18 AM CDT) Anatomical Region Laterality Modality Computed Radiogr aphy Narrative 08/27/2021 10:18 AM CDT See Office Visit for documentation. us Edilberto [facility] ORDERAB LES Final Result * ME NJX DX/THER SBST INTRLMNR CRV/THRC W/IMG GDN (08/27/2021 9:53 AM CDT) Narrative Edilberto Gann MD - 08/27/2021 9:53 AM CDT Edilberto Gann MD ? 08/27/2021 10:48 AM Cervical Epidural Steroid Injection w/ IMG ([id number]) Date/Time: 08/27/2021 9:53 AM Performed by: Edilberto Gann MD Authorized by: Edilberto Gann MD [place] Protocol: ?Verbal consent obtained?: Yes ?Written consent [...] time out verifies correct patient, procedure, equipment, production support consultant and site/side marked as required.) Preparation: ?Preparation: Patient was prepped and draped in usual sterile fashion ?? Anesthesia: ??Local anesthesia used?: No ?? Sedation: ?Patient sedated: No ?? Post-procedure: ??Patient tolerance: ??Patient tolerated the procedure well with no immediate complications Edilberto Gann MD PROCEDURE/MINOR SURGICAL ORDER RASHMI Final Result documented in this encounter Visit Diagnoses Diagnosis Cervicalgia- Primary Cervical spondylosis without myelopathy documented in this encounter Administered Medications Inactive Administered Medications - up to 3 most recent administrations Medication Order MAR Action Action Date Dose Rate Site iohexol (OMNIPAQUE) 240 MG/ML injection 2 mL, Injection, ONCE, On Wed08/27/21 at 1030, For 1 doseIndications:Cervicalgia,Cervica l spondylosis without myelopathy Given 08/27/2021 9:58 AM CDT 2 mLs methylPREDNISolone acetate (DEPO-MEDROL) injection 80 mg, Epidural, ONCE, On Wed08/27/21 at 1030, For 1 doseIndications:Cervicalgia,Cervica l spondylosis without myelopathy Given 08/27/2021 9:59 AM CDT 80 mg documented in this encounter Additional Health Concerns Assessment Noted Time A fall risk assessment has been complete d for the patient 08/27/2021 11:36 AM CDT A Body Mass Index follow-up plan has been documented for the patient 06/30/2021 12:12 PM CDT documented as of this encounter Care Teams Pick Out Hand Relationship Specialty Start Date End Date Michell Trevizo MD [address] [place] [address] PCP - General Internal Medicine 05/29/21 02/25/22 Lacey Perdue MD [facility] [address] Referring Physician Infectious Diseases 06/28/18 documented as of this encounter
--- OUTSIDE RECORDS SUMMARY | 2024-11-23 00:25 | XMS_ITS | Encounter Summary ---
Author Organization [email or web address] Address [address] [place] [address] Care Team Providers Care Fermenter Operator Name Role Phone Lacey Perdue MD Unavailable [phone] Michell Trevizo MD Primary Care Provider [phone] Encounter Details Date Type Department Care Team (Latest Contact Info) Description 07/15/2021 Travel Social History Tobacco Use Types Packs/Day [...] have Coronavirus / COVID-19? No / Unsure 07/15/2021 7:47 AM CDT documented as of this encounter Functional Status * Are you deaf or do you have serious difficulty hearing? Answer Date of Assessment Author No 10/25/2017 2:00 PM Deonna Padilla ARNP * Are you blind or do you have serious difficulty seeing, even when wearing glasses? Answer Date of Assessment Author No 10/25/2017 2:00 PM BRAKE PRESS OPERATOR Galvan, Am y S, RAPID OUTSOLE STITCHER * Do you have serious difficulty walking or climbing stairs? (5 years old or older) Answer Date of Assessment Author No 10/25/2017 2:00 PM Deonna Padilla S, RAPID OUTSOLE STITCHER * Do you have difficulty dressing or bathing? (5 years old or older) Answer Date of Assessment Author No 10/25/2017 2:00 PM JOHN Galvan Am y S, RAPID OUTSOLE STITCHER * Because of a physical, mental, or emotional condition, do you have difficulty doing errands alone such as visiting a doctor's office or shopping? (15 years old or older) Answer Date of Assessment Author No 10/25/2017 2:00 PM JOHN Galvan Am y S, RAPID OUTSOLE STITCHER documented as of this encounter Mental Status * Because of a physical, mental, or emotional condition, do you have serious difficulty concentrating, remembering, or making decisions? (5 years old or older) Answer Entry Date Author No 10/25/2017 2:00 PM Deonna Padilla S, RAPID OUTSOLE STITCHER documented in this encounter Plan of Treatment [...] documented as of this encounter Care Teams Fermenter Operator Relationship Specialty Start Date End Date Michell Trevizo MD [facility] [place] [address] PCP - General Internal Medicine 05/29/21 02/25/22 Lacey Perdue MD [address] [phone] Referring Physician Infectious Diseases 06/28/18 documented as of this encounter
--- OUTSIDE RECORDS SUMMARY | 2024-11-23 00:25 | XMS_ITS | Encounter Summary ---
Author Organization [employer] Address [address] [place] [address] Care Team Providers Care Research Recruiter Name Role Phone Lacey Perdue MD Unavailable [phone] Michell Trevizo MD Primary Care Provider [phone] Reason for Visit * Reason Comments Pre-op Exam Encounter Details Date Type Department Care Team (Latest Contact Info) Description 08/27/2021 10:25 AM CDT Clinical Support [facility] [address] [place] [address] Carson Wolff MD [address] [place] [address] Radha Chandler, RTR [address] [place] [address] Pre-operative exam Social History Tobacco Use Types Packs/Day Years [...] of Assessment Author No 10/25/2017 2:00 PM INTELLIGENCE CONSULTANT Cole Am y S, ONCOLOGY COORDINATOR * Are you blind or do you have serious difficulty seeing, even when wearing glasses? Answer Date of Assessment Author No 10/25/2017 2:00 PM INTELLIGENCE CONSULTANT Galvan, Am y S, ONCOLOGY COORDINATOR * Do you have serious difficulty walking or climbing stairs? (5 years old or older) Answer Date of Assessment Author No 10/25/2017 2:00 PM INTELLIGENCE CONSULTANT Galvan, Am y S, ONCOLOGY COORDINATOR * Do you have difficulty dressing or bathing? (5 years old or older) Answer Date of Assessment Author No 10/25/2017 2:00 PM INTELLIGENCE CONSULTANT Galvan, Am y S, ONCOLOGY COORDINATOR * Because of a physical, mental, or emotional condition, do you have difficulty doing errands alone such as visiting a doctor's office or shopping? (15 years old or older) Answer Date of Assessment Author No 10/25/2017 2:00 PM INTELLIGENCE CONSULTANT Galvan, Am y S, ONCOLOGY COORDINATOR documented as of this encounter Mental Status * Because of a physical, mental, or emotional condition, do you have serious difficulty concentrating, remembering, or making decisions? (5 years old or older) Answer Entry Date Author No 10/25/2017 2:00 PM INTELLIGENCE CONSULTANT Galvan, Am y S, ONCOLOGY COORDINATOR documented in this encounter Plan of Treatment Not on file documented as of this encounter Goals Goal Patient Goal Type Associated Problems Recent Progress Patient-Stated? Author Blood Pressure < 140/90 Blood Pressure 134/86(2022 2:25 PM CDT) No Leonard Jasso APRN documented as of this encounter Procedures Procedure Name Priority Date/Time Associated Diagnosis Comments EKG 12-LEAD STAT 08/27/2021 11:30 AM CDT Pre-operative exam documented in this encounter Results * EKG 12-lead (08/27/2021 11:30 AM CDT) 08/27/2021 11:3 0 AM CDT Narrative [facility] - 08/27/2021 10:50 AM CDT Vent Rate: 66 bpm RR Interval: 902 msec DC Interval: 199 msec QRS Duration: 98 msec QT Interval: 377 msec QTC Interval: 391 msec P-R-T [place]: 49 - -41 - 53 degrees IMPRESSION: SINUS RHYTHM CONSIDER LEFT ATRIAL ABNORMALITY LEFT AXIS DEVIATION [QRS AXIS < -30] BORDERLINE EKG Electronically Signed By: Sohan Andrade Procedure Note Sohan Andrade MD - 08/27/2021 Vent Rate: 66 bpm RR Interval: 902 msec DC Interval: 199 msec QRS Duration: 98 msec QT Interval: 377 msec QTC Interval: 391 msec P-R-T [place]: 49 - -41 - 53 degrees IMPRESSION: SINUS RHYTHM CONSIDER LEFT ATRIAL ABNORMALITY LEFT AXIS DEVIATION [QRS AXIS < -30] BORDERLINE EKG Electronically Signed By: Sohan Andrade us Carson Wolff MD ECG ORDERABLES Final Res ult Performing Organization Address City/State/[facility] Co de Phone Number [facility] documented in this encounter Visit Diagnoses Diagnosis Pre-operative exam Preoperative examination, unspecified documented in this encounter Additional Health Concerns Assessment Noted Time A fall risk assessment has been complete d for the patient 08/27/2021 11:36 AM CDT A Body Mass Index follow-up plan has been documented for the patient 06/30/2021 12:12 PM CDT documented as of this encounter Care Teams Research Recruiter Relationship Specialty Start Date End Date Michell Trevizo MD [address] [place] [address] PCP - General Internal Medicine 05/29/21 02/25/22 Lacey Perdue MD [address] [address] Referring Physician Infectious Diseases 06/28/18 documented as of this encounter
--- OUTSIDE RECORDS SUMMARY | 2024-11-23 00:25 | XMS_ITS | Encounter Summary ---
Author Organization [employer] Address [address] [place] [address] Care Team Providers Care Larry Operator Name Role Phone Lacey Perdue MD Unavailable Michell Trevizo MD Primary Care Provider [phone] Encounter Details Date Type Department Care Team (Late st Contact Info) Description 12/18/2021 Documentation [facility] [address] [place] [address] Carson Wolff MD [address] [place] [address] Social History Tobacco Use Types [...] COVID-19? No / Unsure 12/15/2021 1:26 PM PHONE COUNSELOR documented as of this encounter Functional Status * Are you deaf or do you have serious difficulty hearing? Answer Date of Assessment Author No 10/25/2017 2:00 PM PHONE COUNSELOR Galvan, Am y S, CHIEF OF HOSPITAL MEDICINE * Are you blind or do you have serious difficulty seeing, even when wearing glasses? Answer Date of Assessment Author No 10/25/2017 2:00 PM PHONE COUNSELOR Galvan, Am y S, CHIEF OF HOSPITAL MEDICINE * Do you have serious difficulty walking or climbing stairs? (5 years old or older) Answer Date of Assessment Author No 10/25/2017 2:00 PM PHONE COUNSELOR Galvan, Am y S, CHIEF OF HOSPITAL MEDICINE * Do you have difficulty dressing or bathing? (5 years old or older) Answer Date of Assessment Author No 10/25/2017 2:00 PM PHONE COUNSELOR Galvan, Am y S, CHIEF OF HOSPITAL MEDICINE * Because of a physical, mental, or emotional condition, do you have difficulty doing errands alone such as visiting a doctor's office or shopping? (15 years old or older) Answer Date of Assessment Author No 10/25/2017 2:00 PM PHONE COUNSELOR Galvan, Am y S, CHIEF OF HOSPITAL MEDICINE documented as of this encounter Mental Status * Because of a physical, mental, or emotional condition, do you have serious difficulty concentrating, remembering, or making decisions? (5 years old or older) Answer Entry Date Author No 10/25/2017 2:00 PM PHONE COUNSELOR Galvan, Am y S, CHIEF OF HOSPITAL MEDICINE documented in this encounter Progress Notes * Carson Wolff MD - 12/18/2021 3:35 PM CST Images from the original note were not included. Pathology report from left nasal biopsy (12/15/2021): Inflammatory polyp I will ask my office to contact patient. I would like to start him on twice daily Mometasone sinus rinses for 3 months. Carson Wolff M.D., Ph.D. Pediatric and General Otolaryngology [facility] E COUNSELOR documented in this encounter Plan of Treatment Not on file documented as of this encounter Goals Goal Patient Goal Type Associated Problems Recent Progress Patient-Stated? Author Blood Pressure < 140/90 Blood Pressure 134/86(2022 2:25 PM CDT) No Wasielewski, Leonard W, ACCORDION TUNER documented as of this encounter Visit Diagnoses Not on filedocumented in this encounter Additional Health Concerns Assessment Noted Time A fall risk assessment has been complete d for the patient 08/27/2021 11:36 AM CDT A Body Mass Index follow-up plan has been documented for the patient 06/30/2021 12:12 PM CDT documented as of this encounter Care Teams Larry Operator Relationship Specialty Start Date End Date Michell Trevizo MD [address] [place] [address] PCP - General Internal Medicine 05/29/21 02/25/22 Lacey Perdue MD [address] [place] [phone] Referring Physician Infectious Diseases 06/28/18 documented as of this encounter
--- OUTSIDE RECORDS SUMMARY | 2024-11-23 00:25 | XMS_ITS | Encounter Summary ---
Author Organization [employer] Address [address] [place] [address] Care Team Providers Care Cloth Covered Helmet Puller Name Role Phone Lacey Perdue MD Unavailable [phone] Michell Trevizo MD Primary Care Provider [phone] Reason for Visit * Reason Comments Medication Refill Encounter Details Date Type Department Care Team (Late st Contact Info) Description 11/19/2021 Refill [facility] Internal Medicine [address] [place] [phone] Michell Trevizo MD [address] [place] [address] Social History Tobacco Use Types Packs/Day [...] COVID-19? No / Unsure 11/19/2021 9:18 AM BILINGUAL SCHOOL PSYCHOLOGIST documented as of this encounter Functional Status * Are you deaf or do you have serious difficulty hearing? Answer Date of Assessment Author No 10/25/2017 2:00 PM Deonna Padilla, PACKAGER OR PACKER AND WEIGHER * Are you blind or do you have serious difficulty seeing, even when wearing glasses? Answer Date of Assessment Author No 10/25/2017 2:00 PM Deonna Padilla S, PACKAGER OR PACKER AND WEIGHER * Do you have serious difficulty walking or climbing stairs? (5 years old or older) Answer Date of Assessment Author No 10/25/2017 2:00 PM Deonna Padilla S, PACKAGER OR PACKER AND WEIGHER * Do you have difficulty dressing or bathing? (5 years old or older) Answer Date of Assessment Author No 10/25/2017 2:00 PM Deonna Padilla, PACKAGER OR PACKER AND WEIGHER * Because of a physical, mental, or emotional condition, do you have difficulty doing errands alone such as visiting a doctor's office or shopping? (15 years old or older) Answer Date of Assessment Author No 10/25/2017 2:00 PM Deonna Padilla, PACKAGER OR PACKER AND WEIGHER documented as of this encounter Mental Status * Because of a physical, mental, or emotional condition, do you have serious difficulty concentrating, remembering, or making decisions? (5 years old or older) Answer Entry Date Author No 10/25/2017 2:00 PM Deonna Padilla, PACKAGER OR PACKER AND WEIGHER documented in this encounter Plan of Treatment [...] documented as of this encounter Care Teams Cloth Covered Helmet Puller Relationship Specialty Start Date End Date Michell Trevizo MD [address] [place] [address] PCP - General Internal Medicine 05/29/21 02/25/22 Lacey Perdue MD [address] [phone] Referring Physician Infectious Diseases 06/28/18 documented as of this encounter
--- OUTSIDE RECORDS SUMMARY | 2024-11-23 00:25 | XMS_ITS | Encounter Summary ---
Author Organization [employer] Address [address] [place] [address] Care Team Providers Care Pharmacy Specialist Name Role Phone Lacey Perdue MD Unavailable [phone] Michell Trevizo MD Primary Care Provider [phone] Reason for Visit * Reason Comments Medication Refill Encounter Details Date Type Department Care Team (Late st Contact Info) Description 08/01/2021 Refill [facility] Internal Medicine [address] [place] [address] Michell Trevizo MD [address] [place] [address] Social History Tobacco Use Types Packs/Day [...] Author No 10/25/2017 2:00 PM Deonna Padilla, MACHINE FEATHEREDGER AND REDUCER * Are you blind or do you have serious difficulty seeing, even when wearing glasses? Answer Date of Assessment Author No 10/25/2017 2:00 PM Deonna Padilla, MACHINE FEATHEREDGER AND REDUCER * Do you have serious difficulty walking or climbing stairs? (5 years old or older) Answer Date of Assessment Author No 10/25/2017 2:00 PM Deonna Padilla, MACHINE FEATHEREDGER AND REDUCER * Do you have difficulty dressing or bathing? (5 years old or older) Answer Date of Assessment Author No 10/25/2017 2:00 PM Deonna Padilla, MACHINE FEATHEREDGER AND REDUCER * Because of a physical, mental, or emotional condition, do you have difficulty doing errands alone such as visiting a doctor's office or shopping? (15 years old or older) Answer Date of Assessment Author No 10/25/2017 2:00 PM Deonna Padilla, MACHINE FEATHEREDGER AND REDUCER documented as of this encounter Mental Status * Because of a physical, mental, or emotional condition, do you have serious difficulty concentrating, remembering, or making decisions? (5 years old or older) Answer Entry Date Author No 10/25/2017 2:00 PM Deonna Padilla MACHINE FEATHEREDGER AND REDUCER documented in this encounter Plan of Treatment [...] as of this encounter Care Teams Pharmacy Specialist Relationship Specialty Start Date End Date Michell Trevizo MD [facility] [place] [address] PCP - General Internal Medicine 05/29/21 02/25/22 Lacey Perdue MD [address] [phone] Referring Physician Infectious Diseases 06/28/18 documented as of this encounter
--- OUTSIDE RECORDS SUMMARY | 2024-11-23 00:25 | XMS_ITS | Encounter Summary ---
Author Organization [employer] Address [address] [place] [id number] Care Team Providers Care Studio Designer Name Role Phone Lacey Perdue MD Unavailable [phone] Michell Trevizo MD Primary Care Provider [phone] Encounter Details Date Type Department Care Team (Latest Contact Info) Description 12/15/2021 Travel Social History Tobacco Use Types Packs/Day [...] COVID-19? No / Unsure 12/15/2021 1:26 PM PHYSICAL SCIENTIST documented as of this encounter Functional Status * Are you deaf or do you have serious difficulty hearing? Answer Date of Assessment Author No 10/25/2017 2:00 PM PHYSICAL SCIENTIST Deonna Galvan ARNP * Are you blind or do you have serious difficulty seeing, even when wearing glasses? Answer Date of Assessment Author No 10/25/2017 2:00 PM PHYSICAL SCIENTIST Galvan, Am y S, ASSISTANT DISTRICT ATTORNEY * Do you have serious difficulty walking or climbing stairs? (5 years old or older) Answer Date of Assessment Author No 10/25/2017 2:00 PM Deonna Padilla S, ASSISTANT DISTRICT ATTORNEY * Do you have difficulty dressing or bathing? (5 years old or older) Answer Date of Assessment Author No 10/25/2017 2:00 PM PHYSICAL SCIENTIST Deonna Galvan y S, ASSISTANT DISTRICT ATTORNEY * Because of a physical, mental, or emotional condition, do you have difficulty doing errands alone such as visiting a doctor's office or shopping? (15 years old or older) Answer Date of Assessment Author No 10/25/2017 2:00 PM JOHN Galvan Am y S, ASSISTANT DISTRICT ATTORNEY documented as of this encounter Mental Status * Because of a physical, mental, or emotional condition, do you have serious difficulty concentrating, remembering, or making decisions? (5 years old or older) Answer Entry Date Author No 10/25/2017 2:00 PM Deonna Padilla, ASSISTANT DISTRICT ATTORNEY documented in this encounter Plan of Treatment [...] documented as of this encounter Care Teams Studio Designer Relationship Specialty Start Date End Date Michell Trevizo MD [address] [place] [address] PCP - General Internal Medicine 05/29/21 02/25/22 Lacey Perdue MD [address] [address] Referring Physician Infectious Diseases 06/28/18 documented as of this encounter
--- OUTSIDE RECORDS SUMMARY | 2024-11-23 00:25 | XMS_ITS | Encounter Summary ---
Author Organization [employer] Address [address] [place] [address] Care Team Providers Care Egg Setter Name Role Phone Lacey Perdue MD Unavailable [phone] Michell Trevizo MD Primary Care Provider [phone] Reason for Visit * Reason Onset Date Comments Medication Refill 08/28/2021 Encounter Details Date Type Department Care Team (Late st Contact Info) Description 08/28/2021 Refill [facility] [address] [place] [address] Eve Ward, HYDRAULIC PUNCH PRESS OPERATOR [address] [place] [address] Social History Tobacco Use Types [...] have Coronavirus / COVID-19? No / Unsure 08/28/2021 2:53 PM CDT documented as of this encounter Functional Status * Are you deaf or do you have serious difficulty hearing? Answer Date of Assessment Author No 10/25/2017 2:00 PM Deonna Padilla, CUSTOMS COLLECTOR * Are you blind or do you have serious difficulty seeing, even when wearing glasses? Answer Date of Assessment Author No 10/25/2017 2:00 PM Deonna Padilla S, CUSTOMS COLLECTOR * Do you have serious difficulty walking or climbing stairs? (5 years old or older) Answer Date of Assessment Author No 10/25/2017 2:00 PM Deonna Padilla S, CUSTOMS COLLECTOR * Do you have difficulty dressing or bathing? (5 years old or older) Answer Date of Assessment Author No 10/25/2017 2:00 PM Deonna Padilla, CUSTOMS COLLECTOR * Because of a physical, mental, or emotional condition, do you have difficulty doing errands alone such as visiting a doctor's office or shopping? (15 years old or older) Answer Date of Assessment Author No 10/25/2017 2:00 PM Deonna Padilla, CUSTOMS COLLECTOR documented as of this encounter Mental Status * Because of a physical, mental, or emotional condition, do you have serious difficulty concentrating, remembering, or making decisions? (5 years old or older) Answer Entry Date Author No 10/25/2017 2:00 PM Deonna Padilla CUSTOMS COLLECTOR documented in this encounter Plan of Treatment [...] as of this encounter Care Teams Egg Setter Relationship Specialty Start Date End Date Michell Trevizo MD [address] [place] [address] PCP - General Internal Medicine 05/29/21 02/25/22 Lacey Perdue MD [address] [address] Referring Physician Infectious Diseases 06/28/18 documented as of this encounter
--- OUTSIDE RECORDS SUMMARY | 2024-11-23 00:25 | XMS_ITS | Encounter Summary ---
Author Organization [employer] Address [address] [place] [address] Care Team Providers Care Hepatologist Name Role Phone Lacey Perdue MD Unavailable [phone] Michell Trevizo MD Primary Care Provider [phone] Reason for Visit * Reason Comments Shortness of Breath Pt presents with SOB that started around 10/14/21 after having COVID-19 but over the last couple of days has become worse and this morning significantly worse. States he does not have any history of asthma or COPD. Encounter Details Date Type Department Care Team (Late st Contact Info) Description 11/19/2021 9:06 AM [facility] [facility] - 11/19/2021 10:58 AM [facility] [address] [place] [id number] Rickey Bailey F, DO [address] [address] Bronchitis due to COVID-19 virus (Primary Dx); COVID-19; Elevated liver enzymes Discharge Disposition: Home - Discharge to Home [...] COVID-19? No / Unsure 11/19/2021 9:18 AM [employer] documented as of this encounter Last Filed Vital Signs Vital Sign Reading Time Taken Comments Blood Pressure 135/83 11/19/2021 10:55 AM [employer] Pulse 70 11/19/2021 10:55 AM [employer] Temperature 36.8 ??C (98.3 ??F) 11/19/2021 10:[address] Respiratory Rate 20 11/19/2021 10:55 AM [employer] Oxygen Saturation 95% 11/19/2021 10:55 AM [employer] Inhaled Oxygen Concentration - - Weight 88.5 kg (195 lb) 11/19/2021 9:15 AM [employer] Height 180.3 cm (5' 11 ) 11/19/2021 9:15 AM [employer] Body Mass Index 27.2 11/19/2021 9:15 AM [employer] documented in this encounter Functional Status * [...] Entry Date Author No 10/25/2017 2:00 PM [employer] Deonna Galvan ARNP documented in this encounter Discharge Instructions * Discharge Instructions* Jacqueline De La Vega, RN - 11/19/2021 10:51 AM [employer] Images from the original note were not included. Bronchitis: Care Instructions Your Care Instructions Bronchitis is inflammation of the bronchial tubes, which carry air to the lungs. The tubes swell and produce mucus, or phlegm. The mucus and inflamed bronchial tubes make you cough. You may have trouble breathing. Most cases of bronchitis are caused by viruses like those that cause colds. Antibiotics usually do not help and they may be harmful. Bronchitis usually develops rapidly and lasts about 2 to 3 weeks in otherwise healthy people. Follow-up care is a whalen part of your treatment and safety. Be sure to make and go to all appointments, and call your doctor if you are having problems. It's also a good idea to know your test resultsand keep a list of the medicines you take. How can you care for yourself at home? ?? Take all medicines exactly as prescribed. Call your doctor if you think you are having a problemwith your medicine. ?? Get some extra rest. ?? Take an mvlr-dnd-zvghcav pain medicine, such as acetaminophen (Tylenol), ibuprofen (Advil, Motrin), or naproxen (Aleve) to reduce fever and relieve body aches. Read and follow all instructions on the label. ?? Do not take two or more pain medicines at the same time unless the doctor told you to. Many painmedicines have acetaminophen, which is Tylenol. Too much acetaminophen (Tylenol) can be harmful. ?? Take an qkck-yla-unlftzn cough medicine to help quiet a dry, hacking cough so that you can sleep. Avoid cough medicines that have more than one active ingredient. Read and follow all instructions on the label. ?? Do not smoke. Smoking can make bronchitis worse. If you need help quitting, talk to your doctor about stop-smoking programs and medicines. These can increase your chances of quitting for good. When should you call for help? Call 911 anytime you think you may need emergency care. For example, call if: ? You have severe trouble breathing. Call your doctor now or seek immediate medical care if: ? You have new or worse trouble breathing. ? You cough up dark brown or bloody mucus (sputum). ? You have a new or higher fever. ? You have a new rash. Watch closely for changes in your health, and be sure to contact your doctor if: ? You cough more deeply or more often, especially if you notice more mucus or a change in the color of your mucus. ? You are not getting better as expected. Where can you learn more? Go to the Search Medical Library option found under the Resources tab in [employer] [email or web address]. If you do not have access to [employer], you can visit [email or web address] and select Logical Apps from the menu on the left. Enter H333 in the search box to learn more about Bronchitis: Care Instructions. Not on [employer]? Go to [email or web address] and click the Sign Up Now link to request an activation code. Current as of: May 20, 2021?Content Version: 13.0 ?? [employer]. Care instructions adapted under license by your healthcare professional. This care instruction is for use with your licensed healthcare professional. If you have questions about a medical condition or this instruction, always ask your healthcare professional. [employer] disclaims any warranty or liability for your use of this information. L [employer] documented in this encounter Medications at Time [...] tablet Take 1 (one) tablet by mouth daily. 30 tablet 5 10/14/2021 2 baclofen (LIORESAL) 10 MG tablet Take 1 tablet by mouth 3 (three) times daily as needed (muscle spasms.). 90 tablet 08/27/2021 2 baclofen (LIORESAL) 10 MG tablet TAKE ONE TABLET BY MOUTH THREE TIMES A DAY IF NEEDED FOR MUSCLE SPASMS 90 tablet 11/20/2021 2 cefUROXime (CEFTIN) 500 MG tablet Take 1 (one) tablet by mouth 2 (two) times daily. 10 tablet 11/19/2021 2 diclofenac sodium (VOLTAREN) 50 MG EC tablet Take 1 tablet by mouth 2 (two) times daily. 60 tablet 5 08/27/2021 2 docusate sodium (COLACE) 100 MG capsule TAKE ONE CAPSULE BY MOUTH TWICE A DAY NEEDED FOR CONSTIPATION--TA KE WHILE ON NARCOTIC PAIN MEDICATIONS 30 capsule 11/20/2021 2 NARCAN 4 MG/0.1ML LIQD nasal liquid USE DIRECTED. 2 each 1 01/15/2020 2 omeprazole 20 MG tablet Take 2 tablets by mouth every morning before breakfast. 60 tablet 5 05/29/2021 2 oxyCODONE-acetamin ophen (PERCOCET) 10-325 MG per tablet TAKE ONE TABLET EVERY SIX HOURS IF NEEDED FOR PAIN. 120 tablet 10/21/2021 2 oxyCODONE-acetamin ophen (PERCOCET) 10-325 MG per tablet TAKE ONE TABLET EVERY SIX HOURS IF NEEDED FOR PAIN. 120 tablet 11/20/2021 2 predniSONE (DELTASONE) 20 MG tablet Take 2 (two) tablets by mouth daily. 10 tablet 11/19/2021 2 tamsulosin HCl (FLOMAX) 0.4 MG capsule Take 1 (one) capsule by mouth daily. 30 capsule 3 10/14/2021 2 Unclassified (UNABLE TO FIND) Med Name: Keto Advanced daily 2 documented as of this encounter ED Notes * Rickey Bailey, DO - 11/19/2021 9:31 AM CST History Chief Complaint Patient presents with ??? Shortness of Breath Pt presents with SOB that started around 10/14/21 after having COVID-19 but over the last couple ofdays has become worse and this morning significantly worse. States he does not have any history of asthma or COPD. HPI This is a pleasant 66-year-old gentleman who comes in for worsening shortness of breath. Patient states he had Covid the end of September. His had a mild case. He had a more severe case with cough and congestion. He self quarantine for quite a while. He did not receive care as far asmonoclonal antibody. He states he has not had his Covid vaccines. He remained off work for the lastmonth. He started back to work several days ago but then this morning woke up at 5:00 in the morning with cough and congestion and more shortness of breath. He is explaining symptoms of wheezing withdifficulty getting his air out. He has no chest pain orthopnea or paroxysmal nocturnal dyspnea. He denies any fever chills or sweats. Patient is had no significant cardiac or pulmonary issues. Past Medical History: Diagnosis Date ??? Arthritis ??? Back injury ??? Chronic back pain greater than 3 months duration ??? GERD (gastroesophageal reflux disease) ??? Hepatic steatosis 07/28/2021 ??? Migraines ??? Osteomyelitis of ankle or foot, acute, right (HCC) 2018 Stepped on nail ??? Shoulder injury ??? Substance abuse ([facility]) cocaine, crystal meth nothing since 1996 ??? [...] use: Yes Types: Hydrocodone Comment: Arthritis pain Review of Systems Review of systems is as above. Denies any headache or visual complaints. He denies any sore throat. Patient denies any abdominal pain nausea vomiting or diarrhea. He denies any ankle swelling. Allergies / Sensitivities No Known Allergies Current Immunization Status per Nursing Immunization Status Flu vaccine up to date?: No Does the patient want to receive the Flu vaccine for this season?: Declines Influenza Vaccine Screen Does the patient want to receive the Flu vaccine for this season?: Declines Immunization Hx Most Recent Immunizations Administered Date(s) Administered ??? Influenza (FLUAD) aIIV3 11/03/2019 ??? Influenza H1N1 preservative free 08/11/2011 ??? Influenza, inactivated, quadrivalent, ALL AGES 6 months and older, single dose syringe/vial 08/23/2020 ??? Influenza, unspecified formulation 08/13/2016 ??? Pneumococcal Polysaccharide-23 (Pneumovax 23) PPSV23 01/21/2018 ??? Tdap 04/16/2017 ??? Tetanus and Diphtheria (Tenivac) Td 05/15/2010 Physical Exam BP (!) 145/77 Pulse 77 Temp 36.8 ??C (98.3 ??F) (Oral) Resp 24 Ht 1.803 m (5' 11 ) Wt 88.5 kg (195 lb) SpO2 93% BMI 27.20 kg/m?? GCS Assessment: Physical Exam Constitutional: Appearance: He is well-developed. He is ill-appearing (mildly). HENT: Mouth/Throat: Mouth: Mucous membranes are moist. Cardiovascular: Rate and Rhythm: Normal rate and regular rhythm. No extrasystoles are present. Pulmonary: Effort: Tachypnea (mild) and respiratory distress (mild) present. Breath sounds: Examination of the right-middle field reveals wheezing. Examination of the left-middle field reveals wheezing and rhonchi. Examination of the right-lower field reveals wheezing. Examination of the left-lower field reveals wheezing and rhonchi. Wheezing and rhonchi present. No decreased breath sounds or rales. Chest: Chest wall: No tenderness. Abdominal: Palpations: Abdomen is soft. There is no mass. Tenderness: There is no abdominal tenderness. Musculoskeletal: General: Normal range of motion. Cervical back: Normal range of motion and neck supple. Left lower leg: No edema. Lymphadenopathy: Cervical: No cervical adenopathy. Skin: General: Skin is warm and dry. Neurological: General: No focal deficit present. Mental Status: He is alert. 11/19/2021 ED Lab Results CBC AND DIFFERENTIAL COMPREHENSIVE METABOLIC PANEL TROPONIN I HIGH SENSITIVITY Imaging / Studies reviewed: Imaging Results XR Chest 2 Views (Final result) Result time 11/19/21 10:20:21 Final result by Dayanna Durbin MD (11/19/21 10:20:21) Impression: No acute cardiopulmonary findings. THIS IS AN ELECTRONICALLY VERIFIED FINAL REPORT 11/19/2021 10:17 AM - Electronically signed by Dayanna Durbin M.D. Narrative: [address] [place] [address] DIAGNOSTIC IMAGING Name: EDILBERTO HAWLEY Ordering Phys: RICKEY BAILEY Date of : 1955 Gender: M Accession Number: [id number] EXAM DESCRIPTION: XR CHEST 2 VIEWS REASON FOR STUDY: Short of breath with exertion for 5 weeks. Nonproductive cough. COVID disease on October 14, 2021 TECHNIQUE: Frontal and lateral radiographic views of the chest acquired. COMPARISON: May 27, 2021 FINDINGS: LUNGS: The lungs are well expanded and clear. No pulmonary infiltrate. No consolidation. No pleural effusion pneumothorax. Bilateral pulmonary calcified granulomas are noted. There is unchanged elevation of the right hemidiaphragm. MEDIASTINUM: The heart size is within normal limits. Central pulmonary vasculature is unremarkable. No widening of mediastinum. BONES: No acute findings. LINES/HARDWARE: None ED Course Procedures Clinical Impressions as of 11/19/21 1041 COVID-19 Bronchitis due to COVID-19 virus Elevated liver enzymes Patient's chest x-ray is clear. He has mild elevation of his liver function studies. Appears chronic. Troponin is normal EKG shows no acute change. Plan: New Prescriptions No Prescriptions at Discharge. Patient stable. His O2 saturation is 93%. Is felt that his symptoms are all post Covid. We will place him on albuterol inhaler, short course of prednisone, and Ceftin. He will follow up with his primary care provider if he fails to improve. Disposition: Data Unavailable dismiss [facility] This visit occurred during a National Public Health Emergency due to the SARS-CoV-2 Pandemic. I performed this consultation in person. PPE I used included [id number]. Rickey Bailey, 11/19/21 1037 Rickey Bailey DO 11/19/21 1042 L [employer] L [employer]ER documented in this encounter Plan of Treatment Not on file documented as of this encounter Goals Goal Patient Goal Type Associated Problems Recent Progress Patient-Stated? Author Blood Pressure < 140/90 Blood Pressure 134/86(2022 2:25 PM CDT) No Leonard Jasso, ANGIE documented as of this encounter Procedures Procedure Name Priority Date/Time Associated Diagnosis Comments XR CHEST 2 VIEWS STAT 11/19/2021 10:1 0 AM [employer] TROPONIN I HIGH SENSITIVITY Routine 11/19/2021 9:42 AM [employer] CBC AND DIFFERENTIAL STAT 11/19/2021 9:42 AM [employer]ER COMPREHENSIVE METABOLIC PANEL STAT 11/19/2021 9:42 AM [employer]ER EKG 12- LEAD ([facility]) STAT 11/19/2021 documented in this encounter Results * XR Chest 2 Views (11/19/2021 10:10 AM [employer]ER) Anatomical Region Laterality Modality Chest Computed Radiogr aphy 11/19/2021 9:57 AM [employer]ER Impressions 11/19/2021 10:20 AM [employer]ER No acute cardiopulmonary findings. THIS IS AN ELECTRONICALLY VERIFIED FINAL REPORT 11/19/2021 10:17 AM - Electronically signed by Dayanna Durbin M.D. Narrative 11/19/2021 10:[address] [place] [address] DIAGNOSTIC IMAGING Name: EDILBERTO HAWLEY ??Ordering Phys: YUERICKEY Date of : 1955 ?Gender: M ??Accession Number: [id number] EXAM DESCRIPTION: XR CHEST 2 VIEWS REASON FOR STUDY: Short of breath with exertion for 5 weeks. ??Nonproductive cough. ?? COVID disease on October 14, 2021 TECHNIQUE: Frontal and lateral radiographic views of the chest acquired. COMPARISON: May 27, 2021 FINDINGS: LUNGS: The lungs are well expanded and clear. ??No pulmonary infiltrate. ??No consolidation. ??No pleural effusion pneumothorax. Bilateral pulmonary calcified granulomas are noted. ??There is unchanged elevation of the right hemidiaphragm. MEDIASTINUM: The heart size is within normal limits. ??Central pulmonary vasculature is unremarkable. ??No widening of mediastinum. BONES: No acute findings. LINES/HARDWARE: None Procedure Note Dayanna Durbin MD - 11/19/[address] [place] [address] DIAGNOSTIC IMAGING Name: EDILBERTO HAWLEYDONITA Ordering Phys: RICKEY BAILEY Adrian Date of : 1955 Gender: M Accession Number: [id number] EXAM DESCRIPTION: XR CHEST 2 VIEWS REASON FOR STUDY: Short of breath with exertion for 5 weeks. Nonproductive cough. COVID disease on October 14, 2021 TECHNIQUE: Frontal and lateral radiographic views of the chest acquired. COMPARISON: May 27, 2021 FINDINGS: LUNGS: The lungs are well expanded and clear. No pulmonary infiltrate. No consolidation. No pleural effusion pneumothorax. Bilateral pulmonary calcified granulomas are noted. There is unchanged elevation of the right hemidiaphragm. MEDIASTINUM: The heart size is within normal limits. Central pulmonary vasculature is unremarkable. No widening of mediastinum. BONES: No acute findings. LINES/HARDWARE: None IMPRESSION: No acute cardiopulmonary findings. THIS IS AN ELECTRONICALLY VERIFIED FINAL REPORT 11/19/2021 10:17 AM - Electronically signed by Dayanna Durbin M.D. Rickey Bailey DO IMG DIAGNOSTIC IMAGING ORDE RABLES Final Result * Troponin I High Sensitivity (11/19/2021 9:42 AM [facility]) Troponin I HIGH SENSITIVITY 6.8 0.0 - 60.4 pg/mL 11/19/2021 10:14 AM [facility] Serum BLOOD SPECIMEN / Unknown 11/19/2021 9:42 AM [facility] 11/19/2021 9:45 AM [facility] Rickey Bailey DO LAB BLOOD ORDERABLES Final Result [facility] [address] [place], [place] [phone] [facility] [address] [place] [address] * (ABNORMAL) Comprehensive metabolic panel (11/19/2021 9:42 AM [facility] Pathologist [facility] Sodium 139 136 - 145 mmol/L 11/19/2021 10:09 AM [facility] Potassium 4.1 3.5 - 5.1 mmol/L 11/19/2021 10:09 AM [facility] Chloride 101 98 - 107 mmol/L 11/19/2021 10:09 AM [facility] CO2 28 21 - 32 mmol/L 11/19/2021 10:09 AM [facility] Glucose 120(H) 74 - 106 mg/dL 11/19/2021 10:09 AM [facility] BUN 13 7.0 - 18.0 mg/dL 11/19/2021 10:09 AM [facility] Creatinine 1.08 0.70 - 1.30 mg/dL 11/19/2021 10:09 AM [facility] Calcium 8.7 8.5 - 10.1 mg/dL 11/19/2021 10:09 AM [facility] Total Protein 7.0 6.4 - 8.2 g/dL 11/19/2021 10:09 AM [facility] Albumin 3.6 3.4 - 5.0 g/dL 11/19/2021 10:09 AM [facility] Bilirubin Total 0.7 0.2 - 1.0 mg/dL 11/19/2021 10:09 AM [facility] Alkaline Phosphatase 88 56 - 119 U/L 11/19/2021 10:09 AM [facility] AST 121(H) 15 - 37 U/L 11/19/2021 10:09 AM [facility] ALT 169(H) 16 - 63 U/L 11/19/2021 10:09 AM [facility] Anion Gap 10 8 - 16 mmol/L 11/19/2021 10:09 AM [facility] BUN/Creatinine Ratio 12.0 11/19/2021 10:09 AM [facility] Osmolality Calculated 289 275 - 295 mosm/kg 11/19/2021 10:09 AM [facility] Globulin 3.4 2.3 - 3.4 g/dL 11/19/2021 10:09 AM [facility] A/G Ratio 1.1 11/19/2021 10:09 AM [facility] Creatinine Based eGFR 70 mL/min/[1. 73_m2] 11/19/2021 10:09 AM [facility] Comment:GFR 60-90 Mild decre ased GFR. Serum 11/19/2021 9:42 AM [facility] [facility] 11/19/2021 9:45 AM [facility] us Rickey Bailey DO LAB BLOOD ORDERABLES Final Result [facility] [address] [place], [place] [phone] [facility] [address] [place] [address] * (ABNORMAL) CBC and differential (11/19/2021 9:42 AM [facility] WBC 6.97 4.00 - 11.00 10*3/uL 11/19/2021 9:58 AM [facility] RBC 4.57 4.50 - 6.50 10*6/uL 11/19/2021 9:58 AM [facility] HGB 14.5 13.8 - 18.0 g/dL 11/19/2021 9:58 AM [facility] HCT 42.9 40.0 - 54.0 % 11/19/2021 9:58 AM [facility] MCV 93.9 76 - 99 fL 11/19/2021 9:58 AM [facility] MCH 31.7 27.0 - 32.0 pg 11/19/2021 9:58 AM [facility] MCHC 33.8 30.0 - 35.0 g/dL 11/19/2021 9:58 AM [facility] Platelets 173 135 - 470 10*3/uL 11/19/2021 9:58 AM [facility] RDW-CV 12.7 11.0 - 17.0 % 11/19/2021 9:58 AM [facility] MPV 9.3 8.0 - 12.5 fL 11/19/2021 9:58 AM [facility] Differential Type AUTOMATED DIFFERENTIAL 11/19/2021 9:58 AM [facility] Neutrophil % 55.4 45.0 - 75.0 % 11/19/2021 9:58 AM [facility] Lymphocytes % 27.5 20.0 - 45.0 % 11/19/2021 9:58 AM [facility] Monocyte % 10.6(H) 0.0 - 10.0 % 11/19/2021 9:58 AM [facility] Eosinophils Relative % 5.5(H) 0.0 - 5.0 % 11/19/2021 9:58 AM [facility] Basophils % 0.6 0.0 - 2.0 % 11/19/2021 9:58 AM [facility] Immature Granulocytes% 0.4 0.0 - 1.6 % 11/19/2021 9:58 AM [facility] Neutrophils Absolute 3.86 2.00 - 7.90 10*3/uL 11/19/2021 9:58 AM [facility] Lymphocytes Absolute 1.92 1.00 - 4.00 10*3/uL 11/19/2021 9:58 AM [facility] Monos Absolute 0.74 0.00 - 0.80 10*3/uL 11/19/2021 9:58 AM [facility] Eosinophils Absolute Count 0.38 0.00 - 0.40 10*3/uL 11/19/2021 9:58 AM [facility] Basophils Absolute 0.04 0.00 - 0.10 10*3/uL 11/19/2021 9:58 AM [facility] Immature Granulocytes Absolute 0.03 0.0 - 0.20 10*3/uL 11/19/2021 9:58 AM [facility] Serum BLOOD SPECIMEN / Unknown 11/19/2021 9:42 AM [facility] 11/19/2021 9:45 AM [employer] Rickey Bailey DO LAB BLOOD ORDERABLES Final Result [facility] [address] [place], [place] [phone] [facility] [address] [place] [address] * EKG 12- lead ([facility]) (11/19/2021) 11/19/2021 Rickey Bailey DO ECG ORDERABLES Final Resul t documented in this encounter Visit Diagnoses Diagnosis Bronchitis due to COVID-19 virus- Primary COVID-19 Elevated liver enzymes Nonspecific elevation of levels of transaminase or lactic acid dehydrogenase (LDH) documented in this encounter Additional Health Concerns Assessment Noted Time A fall risk assessment has been complete d for the patient 08/27/2021 11:36 AM CDT A Body Mass Index follow-up plan has been documented for the patient 06/30/2021 12:12 PM CDT documented as of this encounter Care Teams Hepatologist Relationship Specialty Start Date End Date Michell Trevizo MD [facility] [place] [address] PCP - General Internal Medicine 05/29/21 02/25/22 Lacey Perdue MD [address] [place] [address] [phone] Referring Physician Infectious Diseases 06/28/18 documented as of this encounter
--- OUTSIDE RECORDS SUMMARY | 2024-11-23 00:25 | XMS_ITS | Encounter Summary ---
Author Organization [employer] Address [address] [place] [address] Care Team Providers Care Tape Cutting Machine Operator Name Role Phone Lacey Perdue MD Unavailable [phone] Michell Trevizo MD Primary Care Provider [phone] Encounter Details Date Type Department Care Team (Latest Contact Info) Description 08/27/2021 Transcribe Orders [facility] ENT [address] [place] [address] Eve Ward, WAREHOUSE DRIVER [address] [place] [address] Pre-operative exam (Primary Dx); Nasal obstruction Social History Tobacco Use Types Packs/Day Years [...] Author No 10/25/2017 2:00 PM Deonna Padilla, CYLINDER LOADER * Are you blind or do you have serious difficulty seeing, even when wearing glasses? Answer Date of Assessment Author No 10/25/2017 2:00 PM Deonna Padilla, CYLINDER LOADER * Do you have serious difficulty walking or climbing stairs? (5 years old or older) Answer Date of Assessment Author No 10/25/2017 2:00 PM Deonna Padilla, CYLINDER LOADER * Do you have difficulty dressing or bathing? (5 years old or older) Answer Date of Assessment Author No 10/25/2017 2:00 PM Deonna Padilla, CYLINDER LOADER * Because of a physical, mental, or emotional condition, do you have difficulty doing errands alone such as visiting a doctor's office or shopping? (15 years old or older) Answer Date of Assessment Author No 10/25/2017 2:00 PM Deonna Padilla, CYLINDER LOADER documented as of this encounter Mental Status [...] as of this encounter Results * (ABNORMAL) Comprehensive metabolic panel (08/27/2021 1:19 PM CDT) [facility] Glucose 127(H) 60 - 100 mg/dL [facility] Comment: Fasting Plasma Glucose (FPG) ?<100 MG/DL Impaired Fasting Glucose (IFG) ? 100-125 MG/DL Provisional Diagnosis of Diabetes Mellitus ?? > or = 126 MG/DL (Diagnosis Must Be Confirmed) BUN 11 8 - 26 mg/dL [facility] Creatinine 0.9 0.7 - 1.4 mg/dL [facility] Glomerular Filtration Rate Estimate 89 >80 mL/min/1.7 3mm2 [facility] Glomerular Filtration Rate Estimate- 103 >80 mL/min/1.7 3mm2 [facility] Comment:The estimated GFR george s not been validated for women or patients with serious comorbid conditions, or with extremes of body size, muscle mass, or nutritional status. Calcium 9.6 8.4 - 10.2 mg/dL [facility] Sodium 137 136 - 145 mmol/L [facility] Potassium 5.2(H) 3.4 - 4.9 mmol/L [facility] Chloride 103 99 - 111 mmol/L [facility] CO2 28.0 21.0 - 32.0 mmol/L [facility] Albumin 4.0 3.5 - 5.0 g/dL [facility] Total Protein 7.6 6.1 - 8.0 g/dL [facility] Bilirubin Total 0.7 0.2 - 1.2 mg/dL [facility] Alkaline Phosphatase 75 40 - 150 U/L [facility] AST 68(H) 5 - 34 U/L [facility] ALT 63(H) 0 - 55 u/L [facility] Blood 08/27/2021 1:19 PM CDT 08/27/2021 1:26 PM CDT Comment:- Narrative [facility] - 08/27/2021 1:49 PM CDT Testing performed at [facility], [address] [place] [address]. CLIA [id number] Phone [phone] Ext [phone] ??Wage Adjuster Shant Rivas MD us Carson Wolff MD LAB BLOOD ORDERABLES Veronica alexandre Result [facility] [address] [place] [address] [phone] documented in this encounter Visit Diagnoses Diagnosis Pre-operative exam- Primary Preoperative examination, unspecified Nasal obstruction Other diseases of nasal cavity and sinuses documented in this encounter Additional Health Concerns Assessment Noted Time A fall risk assessment has been complete d for the patient 08/27/2021 11:36 AM CDT A Body Mass Index follow-up plan has been documented for the patient 06/30/2021 12:12 PM CDT documented as of this encounter Care Teams Tape Cutting Machine Operator Relationship Specialty Start Date End Date Michell Trevizo MD [facility] [place] [address] PCP - General Internal Medicine 05/29/21 02/25/22 Lacey Perdue MD [address] [phone] Referring Physician Infectious Diseases 06/28/18 documented as of this encounter
--- OUTSIDE RECORDS SUMMARY | 2024-11-23 00:25 | XMS_ITS | Encounter Summary ---
Author Organization [email or web address] Address [address] [place] [address] Care Team Providers Care Construction Sales Manager Name Role Phone Lacey Perdue MD Unavailable [phone] Michell Trevizo MD Primary Care Provider [phone] Reason for Visit * Reason Onset Date Comments Results 12/18/2021 Left Nasal Biops y taken on 12/15/2021 Encounter Details Date Type Department Care Team (Late st Contact Info) Description 12/18/2021 Telephone [facility] E[facility] [address] [place] [address] Sandy Galindo, LEIGHTON [address] [place] [address] Results (Left Nasal Biopsy taken on 12/15/2021) Social History Tobacco Use Types Packs/Day Years [...] COVID-19? No / Unsure 12/15/2021 1:26 PM OIL EXPLORATION ENGINEER documented as of this encounter Functional Status * Are you deaf or do you have serious difficulty hearing? Answer Date of Assessment Author No 10/25/2017 2:00 PM OIL EXPLORATION ENGINEER Cole Am y S, DENTAL SERVICE TECHNICIAN * Are you blind or do you have serious difficulty seeing, even when wearing glasses? Answer Date of Assessment Author No 10/25/2017 2:00 PM OIL EXPLORATION ENGINEER Galvan, Am y S, DENTAL SERVICE TECHNICIAN * Do you have serious difficulty walking or climbing stairs? (5 years old or older) Answer Date of Assessment Author No 10/25/2017 2:00 PM OIL EXPLORATION ENGINEER Galvan, Am y S, DENTAL SERVICE TECHNICIAN * Do you have difficulty dressing or bathing? (5 years old or older) Answer Date of Assessment Author No 10/25/2017 2:00 PM OIL EXPLORATION ENGINEER Cole Am y S, DENTAL SERVICE TECHNICIAN * Because of a physical, mental, or emotional condition, do you have difficulty doing errands alone such as visiting a doctor's office or shopping? (15 years old or older) Answer Date of Assessment Author No 10/25/2017 2:00 PM OIL EXPLORATION ENGINEER Cole Am y S, DENTAL SERVICE TECHNICIAN documented as of this encounter Mental Status * Because of a physical, mental, or emotional condition, do you have serious difficulty concentrating, remembering, or making decisions? (5 years old or older) Answer Entry Date Author No 10/25/2017 2:00 PM OIL EXPLORATION ENGINEER Cole Am y S, DENTAL SERVICE TECHNICIAN documented in this encounter Miscellaneous Notes * Telephone Encounter - Sandy Galindo LPN - 12/18/2021 3:52 PM CST Spoke to Edilberto and gave him results. Let him know I would be sending in order for Mometasone through [facility]. He vpu. EXPLORATION ENGINEER * Telephone Encounter - Sandy Galindo LPN - 12/18/2021 3:50 PM CST ----- Message from Carson Wolff MD sent at 12/18/2021 3:39 PM OIL EXPLORATION ENGINEER ----- Please contact patient and tell him that biopsy was consistent with benign nasal polyp. Because he has polyps, I would like him to start adding Mometasone steroid to the sinus rinses twice daily for the next 3 months (mail-order pharmacy). Thanks! EXPLORATION ENGINEER documented in this encounter Plan of [...] documented as of this encounter Care Teams Construction Sales Manager Relationship Specialty Start Date End Date Michell Trevizo MD [address] [place], [place] [id number] PCP - General Internal Medicine 05/29/21 02/25/22 Lacey Perdue MD [address] [place] [phone] Referring Physician Infectious Diseases 06/28/18 documented as of this encounter
--- OUTSIDE RECORDS SUMMARY | 2024-11-23 00:25 | XMS_ITS | Encounter Summary ---
Author Organization [employer] Address [address] [place] [address] Care Team Providers Care Manager Of Purchasing Name Role Phone Lacey Perdue MD Unavailable [phone] Michell Trevizo MD Primary Care Provider [phone] Patient, None Per Primary Care Provider Unavaila ble Jose Manuel Villegas MD Primary Care Provider Reason for Visit * Reason Comments Follow-up Encounter Details Date Type Department Care Team (Late st Contact Info) Description 09/04/2021 10:00 AM CDT Clinical Support [facility] ENT [address] [place] [address] Jigna Recinos, COACH MECHANIC [address] [place] [address] History of nasal septoplasty (Primary Dx) Social History Tobacco Use Types [...] No 10/25/2017 2:00 PM Deonna Padilla S, COACH MECHANIC * Are you blind or do you have serious difficulty seeing, even when wearing glasses? Answer Date of Assessment Author No 10/25/2017 2:00 PM JHON Galvan Am y S, COACH MECHANIC * Do you have serious difficulty walking or climbing stairs? (5 years old or older) Answer Date of Assessment Author No 10/25/2017 2:00 PM JOHN Galvan Am y S, COACH MECHANIC * Do you have difficulty dressing or bathing? (5 years old or older) Answer Date of Assessment Author No 10/25/2017 2:00 PM JOHN Galvan Am y S, COACH MECHANIC * Because of a physical, mental, or emotional condition, do you have difficulty doing errands alone such as visiting a doctor's office or shopping? (15 years old or older) Answer Date of Assessment Author No 10/25/2017 2:00 PM JOHN Galvan Am y S, COACH MECHANIC documented as of this encounter Mental Status * Because of a physical, mental, or emotional condition, do you have serious difficulty concentrating, remembering, or making decisions? (5 years old or older) Answer Entry Date Author No 10/25/2017 2:00 PM JOHN Galvan Am y S, COACH MECHANIC documented in this encounter Progress Notes * Jigna Recinos ARNP - 09/04/2021 10:00 AM CDT OPERATIVE REPORT ?? DATE OF SURGERY: 08/29/21 ?? LOCATION OF SURGERY: [facility] [place] ([facility]) ?? PRE-OPERATIVE DIAGNOSIS: Nasal septal deviation, bilateral inferior turbinate hypertrophy with obstructed nasal breathing; chronic rhinosinusitis affecting bilateral maxillary, ethmoid, sphenoid sinuses. ?? POST-OPERATIVE DIAGNOSIS: Nasal septal deviation, bilateral inferior turbinate hypertrophy with obstructed nasal breathing; chronic rhinosinusitis affecting bilateral maxillary, ethmoid, sphenoid sinuses. ?? PROCEDURE: Endonasal septoplasty (CPT: 22323) Bilateral inferior turbinate submucous resection (CPT: 17164 modifier 50) Nasal/sinus endoscopy, surgical, with maxillary antrostomy; with removal of tissue from maxillary sinus - bilateral (CPT: 59007; modifier 50) Nasal/sinus endoscopy, surgical, with ethmoidectomy; partial (anterior) - bilateral (CPT: 06188; modifier 50) Nasal/sinus endoscopy, surgical with dilation of sphenoid sinus ostium - bilateral (CPT: 61235, modifier 50) Use of Image Guidance for sinus surgery (CPT: 00010) ?? SURGEON: Carson Wolff MD, PhD ?? ANESTHESIA: General ?? HEALTH CARE CONSULTANT: None ?? EBL: 30 mL ?? SPECIMENS: Right maxillary sinus contents (permanent) ?? IMPLANTS/GRAFTS: Propel Mini curved delivery system (31763) placement in right maxillary (S1091 x 1 units) Propel Mini curved delivery system ([id number]) placement in left maxillary (S1091 x 1 units) PosiSepX bilaterally Crowell splints bilaterally Patient is in ENT today for Crowell Splint removal. Suture was removed from left nare. Crowell Splints were then slowly removed. No active bleeding after removal. Patient tolerated well. Patient has a follow up scheduled with Dr. Wolff on 09/15/21 at 10:30 am and he is aware of the appointment. Discussed nasal saline sinus rinses should be preformed at least twice daily using distilled water. No lifting over 25 pounds No nose blowing Only open mouth sneezing Nasal saline spray 4 times daily Discussed that patient may have blood clots come out of his nose especially with rinses. Patient was concerned about dry mouth. Dr. Wolff's handout was mailed to patient * Carson Wolff MD - 09/04/2021 10:00 AM CDT I was the collaborating provider for this encounter. Carson Wolff MD RINARY RECEPTIONIST documented in this encounter Plan of Treatment Not on file documented as of this encounter Goals Goal Patient Goal Type Associated Problems Recent Progress Patient-Stated? Author Blood Pressure < 140/90 Blood Pressure 134/86(2022 2:25 PM CDT) No Leonard Jasso APRN documented as of this encounter Visit Diagnoses Diagnosis History of nasal septoplasty- Primary Other postprocedural status documented in this encounter Additional Health Concerns Assessment Noted Time A fall risk assessment has been complete d for the patient 08/27/2021 11:36 AM CDT A Body Mass Index follow-up plan has been documented for the patient 06/30/2021 12:12 PM CDT documented as of this encounter Care Teams Manager Of Purchasing Relationship Specialty Start Date End Date Michell Trevizo MD [address] [place] [address] PCP - General Internal Medicine 05/29/21 02/25/22 Patient, None Per PCP - General 02/26/22 05/11/22 Jose Manuel Villegas MD [address] [place] [id number] PCP - General Hooker Operator 05/12/22 11/25/22 Lacey Perdue MD [address] [place] [phone] Referring Physician Infectious Diseases 06/28/18 documented as of this encounter
--- OUTSIDE RECORDS SUMMARY | 2024-11-23 00:25 | XMS_ITS | Encounter Summary ---
Author Organization [employer] Address [address] [place] [address] Care Team Providers Care Director Of Real Estate Name Role Phone Lacey Perdue MD Unavailable [phone] Michell Trevizo MD Primary Care Provider [phone] Reason for Visit * Reason Comments Medication Refill Encounter Details Date Type Department Care Team (Late st Contact Info) Description 10/21/2021 Refill [facility] Internal Medicine [address] [place] [address] Michell Trevizo MD [address] [place] [address] Social History Tobacco Use Types Packs/Day [...] have Coronavirus / COVID-19? No / Unsure 10/14/2021 8:23 AM VETERANS CONTACT REPRESENTATIVE documented as of this encounter Functional Status * Are you deaf or do you have serious difficulty hearing? Answer Date of Assessment Author No 10/25/2017 2:00 PM Deonna Padilla, FEATHER SHAPER * Are you blind or do you have serious difficulty seeing, even when wearing glasses? Answer Date of Assessment Author No 10/25/2017 2:00 PM Deonna Padilla S, FEATHER SHAPER * Do you have serious difficulty walking or climbing stairs? (5 years old or older) Answer Date of Assessment Author No 10/25/2017 2:00 PM Deonna Padilla S, FEATHER SHAPER * Do you have difficulty dressing or bathing? (5 years old or older) Answer Date of Assessment Author No 10/25/2017 2:00 PM Deonna Padilla, FEATHER SHAPER * Because of a physical, mental, or emotional condition, do you have difficulty doing errands alone such as visiting a doctor's office or shopping? (15 years old or older) Answer Date of Assessment Author No 10/25/2017 2:00 PM Deonna Padilla, FEATHER SHAPER documented as of this encounter Mental Status * Because of a physical, mental, or emotional condition, do you have serious difficulty concentrating, remembering, or making decisions? (5 years old or older) Answer Entry Date Author No 10/25/2017 2:00 PM Deonna Padilla, FEATHER SHAPER documented in this encounter Plan of Treatment [...] of this encounter Care Teams Director Of Real Estate Relationship Specialty Start Date End Date Michell Trevizo MD [address] [place] [address] PCP - General Internal Medicine 05/29/21 02/25/22 Lacey Perdue MD [address] [phone] Referring Physician Infectious Diseases 06/28/18 documented as of this encounter
--- OUTSIDE RECORDS SUMMARY | 2024-11-23 00:25 | XMS_ITS | Encounter Summary ---
Author Organization [employer] Address [address] [place] [address] Care Team Providers Care Sales And Marketing Manager Name Role Phone Lacey Perdue MD Unavailable [phone] Michell Trevizo MD Primary Care Provider [phone] Reason for Visit * Reason Comments Medication Refill Encounter Details Date Type Department Care Team ([facility] st Contact Info) Description 09/24/2021 Refill [facility] Internal Medicine [address] [place] [address] Michell Trevizo MD [address] [place] [address] Social History Tobacco Use Types Packs/Day [...] Author No 10/25/2017 2:00 PM Deonna Padilla, CLOCK REPAIR TECHNICIAN * Are you blind or do you have serious difficulty seeing, even when wearing glasses? Answer Date of Assessment Author No 10/25/2017 2:00 PM Deonna Padilla, CLOCK REPAIR TECHNICIAN * Do you have serious difficulty walking or climbing stairs? (5 years old or older) Answer Date of Assessment Author No 10/25/2017 2:00 PM Deonna Padilla, CLOCK REPAIR TECHNICIAN * Do you have difficulty dressing or bathing? (5 years old or older) Answer Date of Assessment Author No 10/25/2017 2:00 PM Deonna Padilla, CLOCK REPAIR TECHNICIAN * Because of a physical, mental, or emotional condition, do you have difficulty doing errands alone such as visiting a doctor's office or shopping? (15 years old or older) Answer Date of Assessment Author No 10/25/2017 2:00 PM Deonna Padilla, CLOCK REPAIR TECHNICIAN documented as of this encounter Mental Status * Because of a physical, mental, or emotional condition, do you have serious difficulty concentrating, remembering, or making decisions? (5 years old or older) Answer Entry Date Author No 10/25/2017 2:00 PM Deonna Padilla CLOCK REPAIR TECHNICIAN documented in this encounter Plan of [...] as of this encounter Care Teams Sales And Marketing Manager Relationship Specialty Start Date End Date Michell Trevizo MD [address] [place] [address] PCP - General Internal Medicine 05/29/21 02/25/22 Lacey Perdue MD [address] [phone] Referring Physician Infectious Diseases 06/28/18 documented as of this encounter
--- OUTSIDE RECORDS SUMMARY | 2024-11-23 00:25 | XMS_ITS | Encounter Summary ---
Author Organization [employer] Address [address] [place] [id number] Care Team Providers Care Accountant Assistant Name Role Phone Lacey Perdue MD Unavailable [phone] Michell Trevizo MD Primary Care Provider [phone] Reason for Visit * Reason Comments Sinus Problem Encounter Details Date Type Department Care Team ([facility] st Contact Info) Description 09/15/2021 10:30 AM CDT Office Visit [facility] ENT [address] [place] [phone] Carson Wolff MD [address] [place] [phone] History of nasal septoplasty (Primary Dx); Recurrent sinusitis; S/P nasal septoplasty; Chronic maxillary sinusitis; Chronic ethmoidal sinusitis; Chronic sphenoidal sinusitis; Sensorineural hearing loss (SNHL) of both ears; Tinnitus of both ears; S/P sinus surgery; History of endoscopic sinus surgery Social History Tobacco Use Types Packs/Day Years [...] No 10/25/2017 2:00 PM Deonna Padilla S, EMERY WHEEL MOLDER * Are you blind or do you have serious difficulty seeing, even when wearing glasses? Answer Date of Assessment Author No 10/25/2017 2:00 PM POTATO LOADER Deonna Galvan y S, EMERY WHEEL MOLDER * Do you have serious difficulty walking or climbing stairs? (5 years old or older) Answer Date of Assessment Author No 10/25/2017 2:00 PM JOHN Galvan Am y S, EMERY WHEEL MOLDER * Do you have difficulty dressing or bathing? (5 years old or older) Answer Date of Assessment Author No 10/25/2017 2:00 PM Deonna Padilla S, EMERY WHEEL MOLDER * Because of a physical, mental, or emotional condition, do you have difficulty doing errands alone such as visiting a doctor's office or shopping? (15 years old or older) Answer Date of Assessment Author No 10/25/2017 2:00 PM Deonna Padilla S, EMERY WHEEL MOLDER documented as of this encounter Mental Status * Because of a physical, mental, or emotional condition, do you have serious difficulty concentrating, remembering, or making decisions? (5 years old or older) Answer Entry Date Author No 10/25/2017 2:00 PM Deonna Padilla, EMERY WHEEL MOLDER documented in this encounter Progress Notes * Carson Wolff MD - 09/15/2021 10:30 AM CDT Subjective: Edilberto Hawley is a 66 y.o. male who is s/p septoplasty, bilateral ITR, endoscopic sinus surgery (bilateral maxillary antrostomy, partial ethmoidectomy, balloon sphenoidotomy, Propel implant placement) on 08/29/2021. Crowell splints were removed in clinic on 09/04/2021. He returns today for follow up and post- operative debridement. HPI: Se, reports not doing well today. Feels really congested. S/S of sinus infection. Reports he takes his percocet for pain. Denies fevers, chills, nausea, vomiting. Pain is controlled. No bleeding. No vision changes. Has been doing sinus irrigations twice daily. Patient Active Problem List Diagnosis ??? Acute adjustment disorder with depressed mood ??? Chronic bilateral low back pain with sciatica ??? Rotator cuff injury ??? Substance abuse ([facility]) ??? Migraines ??? Chronic back pain greater than 3 months duration ??? Arthritis ??? Staphylococcal arthritis of right ankle ([facility]) ??? Cellulitis of axilla, right ??? Avascular necrosis of bone ([facility]) ??? Spinal stenosis ??? Chronic pain ??? Closed fracture of transverse process of lumbar vertebra with routine healing ??? Femoral acetabular impingement ??? 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 History of repair of left rotator cuff ??? Hyperlipidemia ??? 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 Osteoarthritis [...] Osteomyelitis of ankle or foot, acute, right ([facility]) 2018 Stepped on nail ??? Shoulder injury ??? Substance abuse ([facility]) cocaine, crystal meth nothing since 1996 [...] or lesions Nose External: Dorsum Midline Internal: No bleeding; mucosa is healing but significant mucosal edema bilaterally; there is some crusting of blood and mucous that was removed bilaterally (see below) Propel implants on right removed today. Rigid nasal endoscopy with post-op debridement of bilateral nasal passage/sinus cavity: Verbal consent was obtained. The left nasal cavity was prepped with an aerosolized solution of topical anesthetic and vasoconstrictive agent. The 0 degree rigid scope was passed through the anterior nasal cavity and advanced to examine the left nasal passage. Examination showed: mucosal inflammation, Propel implants in place; crusted blood, mucus, PosiSepX in middle meatus/ethmoid cavity. Crusts were gently removed with a combination of suction and forceps. The right nasal cavity was prepped with an aerosolized solution of topical anesthetic and vasoconstrictive agent. The 0 degree rigid scope was passed through the anterior nasal cavity and advanced toexamine the right nasal passage. Examination showed: mucosal edema, crusting of blood/mucus/PosiSepX in middle meatus and ethmoid cavity adherent to Propel implants. Crusts and Propel implants were gently removed with a combination of suction and forceps. There was not bleeding at the end of the procedure. Procedure tolerated well with no immediate complications noted. Data Review: Video Swallow Evaluation (05/14/2021): Normal Audiogram/Tympanogram (06/05/2021): Hearing downsloping symmetric SNHL AU Tymps type A AU SNOT-22 Score (04/07/2021) = 34 SNOT-22 Score (09/15/2021) = 35 CT sinus (05/26/2021) - images and report [...] used throughout sinus portions of the surgery. Assessment/Orders: Diagnoses and all orders for this visit: History of nasal septoplasty - Other Source Culture; Future Recurrent sinusitis - Other Source Culture; Future S/P nasal septoplasty Chronic maxillary sinusitis Chronic ethmoidal sinusitis Chronic sphenoidal sinusitis Sensorineural hearing loss (SNHL) of both ears Tinnitus of both ears S/P sinus surgery History of endoscopic sinus surgery Other orders - Discontinue: sulfamethoxazole-trimethoprim 800-160 MG per tablet; Take 1 (one) tablet by mouth 2 (two) times daily for 14 days. Edilberto Hawley is a 66 y.o. male who is s/p septoplasty, bilateral ITR, endoscopic sinus surgery (bilateral maxillary antrostomy, partial ethmoidectomy, balloon sphenoidotomy, Propel implant placement) on 08/29/2021. Sinus infection symptoms today. Sinus cavities debrided today including removal of Propel implants from right. 1. History of nasal septoplasty Other Source Culture 2. Recurrent sinusitis Other Source Culture 3. S/P nasal septoplasty 4. Chronic maxillary sinusitis 5. Chronic ethmoidal sinusitis 6. Chronic sphenoidal sinusitis 7. Sensorineural hearing loss (SNHL) of both ears 8. Tinnitus of both ears 9. S/P sinus surgery 10. History of endoscopic sinus surgery Plan: - Stop taking previous antibiotics; start taking Bactrim 2 times daily for 14 days. - Continue at least twice daily sinus saline lavages - Continue using nasal saline spray at least 4 times daily to keep nose moist - General activity - Follow up in ~1 week for evaluation and possible debridement Carson Wolff M.D., Ph.D. Otolaryngology - Head and Neck Surgery [facility] TO LOADER documented in this encounter Plan of Treatment Not on file documented as of this encounter Goals Goal Patient Goal Type Associated Problems Recent Progress Patient-Stated? Author Blood Pressure < 140/90 Blood Pressure 134/86(2022 2:25 PM CDT) No Leonard Jasso APRN documented as of this encounter Results * Other Source Culture (09/15/2021 11:54 AM CDT) Other Source Culture Microbiology results [facility] Comment: SOURCE Sinus QUANTITATION MODERATE, MIXED RESULT Methicillin Resistant Staphylococcus aureus (Isolate 1) RESULT Klebsiella oxytoca (Isolate 2) SENSITIVITY ANALYSIS ?Isolate 1 ?Isolate 2 ? AMPICILLIN ?>16 ?R AMPICILLIN-SULBACTAM ?<=8/4 ?S CEFAZOLIN ? >16 ?R CEFOTETAN ?<=16 ?S CIPROFLOXACIN ? >2 ?R ? <=1 ?S CLINDAMYCIN ? <=0.25 ?S ? ERYTHROMYCIN ?>4 ?R ? GENTAMICIN ?<=4 ?S LEVOFLOXACIN ? 4 ?I ? <=2 ?S MINOCYCLINE ? <=4 ?S OXACILLIN ? >2 ?R ? PENICILLIN ?>8 ?? R* ? TETRACYCLINE ? <=1 ?S ? TRIMETHOPRIM/SULFA ? <=0.5/9.5 ?S ? VANCOMYCIN ? 1 ?S SINUS / Unknown 09/15/2021 1 1:54 AM CDT 09/15/2021 11:55 AM CDT Comment:- Narrative [facility] - 09/18/2021 2:19 PM CDT Maxillary sinus Testing performed at [facility], [address] [place] [address]. CLIA [id number] Phone [phone] Ext [phone] ??Arcgis Developer Shant Rivas MD us Carson Wolff MD MICROBIOLOGY - GENERAL OR DERABLES Final Result Performing Organization Address City/State/[facility] Co de Phone Number [facility] [address] [place] [address] [phone] documented in this encounter Visit Diagnoses Diagnosis History of nasal septoplasty- Primary Other postprocedural status Recurrent sinusitis Unspecified sinusitis (chronic) S/P nasal septoplasty Other postprocedural status Chronic maxillary sinusitis Chronic ethmoidal sinusitis Chronic sphenoidal sinusitis Sensorineural hearing loss (SNHL) of both ears Tinnitus of both ears Unspecified tinnitus S/P sinus surgery Other postprocedural status History of endoscopic sinus surgery Personal history of surgery to other organs documented in this encounter Additional Health Concerns Assessment Noted Time A fall risk assessment has been complete d for the patient 08/27/2021 11:36 AM CDT A Body Mass Index follow-up plan has been documented for the patient 06/30/2021 12:12 PM CDT documented as of this encounter Care Teams Accountant Assistant Relationship Specialty Start Date End Date Michell Trevizo MD [address] [place] [address] PCP - General Internal Medicine 05/29/21 02/25/22 Lacey Perdue MD [address] [place] [phone] Referring Physician Infectious Diseases 06/28/18 documented as of this encounter
--- OUTSIDE RECORDS SUMMARY | 2024-11-23 00:25 | XMS_ITS | Encounter Summary ---
Author Organization [facility] Address [address] [place] [address] Care Team Providers Care Car Salesperson Name Role Phone Lacey Perude MD Unavailable [phone] Michell Trevizo MD Primary Care Provider [phone] Reason for Visit * Reason Comments Follow-up 1 month Encounter Details Date Type Department Care Team (Latest Contact Info) Description 08/27/2021 11:45 AM CDT Office Visit [facility] Internal Medicine [address] [place] [phone] Michell Trevizo MD [address] [place] [phone] Encounter for long-term current use of medication (Primary Dx); Chronic bilateral low back pain with left-sided sciatica; Spinal stenosis, unspecified spinal region; Hyperlipidemia, unspecified hyperlipidemia type; Herniation of lumbar intervertebral disc without myelopathy; Elevated liver enzymes Social History Tobacco Use Types Packs/Day Years [...] Sign Reading Time Taken Comments Blood Pressure 144/78 08/27/2021 11:36 AM CDT Pulse 91 08/27/2021 11:36 AM CDT Temperature - - Respiratory Rate - - Oxygen Saturation 97% 08/27/2021 11:36 AM CDT Inhaled Oxygen Concentration - - Weight 88.9 kg (196 lb) 08/27/2021 11:36 AM CDT Height - - Body Mass Index 27.34 02/25/2021 9:01 AM CDT documented in this encounter Functional Status * Are you deaf or do you have serious difficulty hearing? Answer Date of Assessment Author No 10/25/2017 2:00 PM JOHN Galvan Am y S, ESTHETICIAN * Are you blind or do you have serious difficulty seeing, even when wearing glasses? Answer Date of Assessment Author No 10/25/2017 2:00 PM SUPERINTENDENT COMMUNICATIONS Cole Am y S, ESTHETICIAN * Do you have serious difficulty walking or climbing stairs? (5 years old or older) Answer Date of Assessment Author No 10/25/2017 2:00 PM SUPERINTENDENT COMMUNICATIONS Cole Am y S, ESTHETICIAN * Do you have difficulty dressing or bathing? (5 years old or older) Answer Date of Assessment Author No 10/25/2017 2:00 PM SUPERINTENDENT COMMUNICATIONS Cole Am y S, ESTHETICIAN * Because of a physical, mental, or emotional condition, do you have difficulty doing errands alone such as visiting a doctor's office or shopping? (15 years old or older) Answer Date of Assessment Author No 10/25/2017 2:00 PM SUPERINTENDENT COMMUNICATIONS Cole Am y S, ESTHETICIAN documented as of this encounter Mental Status * Because of a physical, mental, or emotional condition, do you have serious difficulty concentrating, remembering, or making decisions? (5 years old or older) Answer Entry Date Author No 10/25/2017 2:00 PM SUPERINTENDENT COMMUNICATIONS Cole Am y S, ESTHETICIAN documented in this encounter Progress Notes * Michell Trevizo MD - 08/27/2021 11:45 AM CDT General Internal Medicine Patient Note [facility] CC: Chief Complaint Patient presents with ??? Follow-up 1 month History of Present Illness: Edilberto Hawley is a 65 y.o. male presenting to clinic for follow-up. He plans to have a procedure Aug 29. ENT planned for surgery at the surgery center. Cleared for surgery from a medical perspective Pain injection today through the pain management clinic. We discussed the recommendations however he is not interested in physical therapy. Behavioral Health REFRIGERATION TECH offered, not interested. We will allow for steroid injections to take effect and will consider cymbalta ROS: Pertinent positives and negatives as mentioned in HPI Past Medical/Surgical/Family/Social History: Reviewed and updated in [employer] History tab Medications: Reviewed and updated in [facility] Medications tab Current Outpatient Medications Medication Sig [...] tablet Take 1 tablet by mouth every 8 (eight) hours as needed for Pain. 120 tablet [...] capsule Take 220 mg by mouth daily. No current facility-administered medications for this visit. Allergies: Reviewed and updated in Epic Allergies tab BP 144/78 Pulse 91 Wt 88.9 kg (196 lb) SpO2 97% BMI 27.34 kg/m?? Physical Exam Constitutional: Well-nourished, and in no distress. Head: Normocephalic and atraumatic. Cardiovascular: Normal rate, regular rhythm and normal heart sounds. Pulmonary/Chest: Effort normal and breath sounds normal. Abdominal: Soft. There is no abdominal tenderness. Musculoskeletal: Normal range of motion. Neurological: CN grossly intact. Gait normal. Skin: Skin is warm and dry. Psychiatric: Affect normal. Labs/Imaging: Reviewed Assessment & Plan Diagnosis: 1. Encounter for long-term current use of medication 2. Chronic bilateral low back pain with left-sided sciatica 3. Spinal stenosis, unspecified spinal region 4. Hyperlipidemia, unspecified hyperlipidemia type 5. Herniation of lumbar intervertebral disc without myelopathy 6. Elevated liver enzymes Medications provided Orders Placed This Encounter Medications ??? baclofen (LIORESAL) 10 MG tablet Sig: Take 1 tablet by mouth 3 (three) times daily as needed (muscle spasms.). Dispense: 90 tablet Refill: 0 ??? oxyCODONE-acetaminophen (PERCOCET) 10-325 MG per tablet Sig: Take 1 tablet by mouth every 8 (eight) hours as needed for Pain. Dispense: 120 tablet Refill: 0 No refills available for controlled drug ??? diclofenac sodium (VOLTAREN) 50 MG EC tablet Sig: Take 1 tablet by mouth 2 (two) times daily. Dispense: 60 tablet Refill: 5 ??? amitriptyline (ELAVIL) 100 MG tablet Sig: Take 1 tablet by mouth daily. Dispense: 30 tablet Refill: 5 No refills available Additional Orders: No orders of the defined types were placed in this encounter. Offered flu shot, not interested Not interested in COVID vaccine either Okay to proceed with ENT surgery I spent a total of 60 minutes on 08/27/2021 reviewing the record, performing a face to face visit, preparing, discussing the treatment, and creating documentation of the encounter. This time was separate from that spent performing other billable services. Return to clinic in 1 month Michell Trevizo MD Internal Medicine Sleep Medicine Obesity Medicine documented in this encounter Plan of Treatment Not on file documented as of this encounter Goals Goal Patient Goal Type Associated Problems Recent Progress Patient-Stated? Author Blood Pressure < 140/90 Blood Pressure 134/86(2022 2:25 PM CDT) No Leonard Jasso APRN documented as of this encounter Visit Diagnoses Diagnosis Encounter for long-term current use of medication- Primary Chronic bilateral low back pain with left-sided sciatica Spinal stenosis, unspecified spinal region Hyperlipidemia, unspecified hyperlipidemia type Herniation of lumbar intervertebral disc without myelopathy Elevated liver enzymes Nonspecific elevation of levels of transaminase or lactic acid dehydrogenase (LDH) documented in this encounter Additional Health Concerns Assessment Noted Time A fall risk assessment has been complete d for the patient 08/27/2021 11:36 AM CDT A Body Mass Index follow-up plan has been documented for the patient 06/30/2021 12:12 PM CDT documented as of this encounter Care Teams Car Salesperson Relationship Specialty Start Date End Date Michell Trevizo MD [address] [place] [id number] PCP - General Internal Medicine 05/29/21 02/25/22 Lacey Perdue MD [address] [phone] Referring Physician Infectious Diseases 06/28/18 documented as of this encounter
--- OUTSIDE RECORDS SUMMARY | 2024-11-23 00:25 | XMS_ITS | Encounter Summary ---
Author Organization [employer] Address [address] [place] [address] Care Team Providers Care Talent Program Manager Name Role Phone Lacey Perdue MD Unavailable [phone] Michell Trevizo MD Primary Care Provider [phone] Reason for Visit * Reason Comments Follow-up Encounter Details Date Type Department Care Team (Late st Contact Info) Description 08/18/2021 2:45 PM CDT Office Visit [facility] [address] [place] [phone] Emmanuel Jefferson, WELT EDGE ROUNDER [address] [place] [id number] Cervicalgia (Primary Dx); Cervical spondylosis without myelopathy; Degeneration of cervical intervertebral disc; Myofascial muscle pain; Thoracic spine pain; Cervical radiculopathy; Lumbosacral spondylosis without myelopathy; Lumbar radiculopathy; Degeneration of lumbar or lumbosacral intervertebral disc; Sacroiliac pain; Lumbar spine pain Social History Tobacco Use Types Packs/Day [...] Sign Reading Time Taken Comments Blood Pressure 132/80 08/18/2021 2:17 PM CDT Pulse 71 08/18/2021 2:17 PM CDT Temperature - - Respiratory Rate - - Oxygen Saturation 96% 08/18/2021 2:17 PM CDT Inhaled Oxygen Concentration - - Weight - - Height - - Body Mass Index - - documented in this encounter Functional Status * Are you deaf or do you have serious difficulty hearing? Answer Date of Assessment Author No 10/25/2017 2:00 PM SENIOR CONTRACTS ADMINISTRATOR Deonna Galvan y S, GLUING MACHINE OPERATOR * Are you blind or do you have serious difficulty seeing, even when wearing glasses? Answer Date of Assessment Author No 10/25/2017 2:00 PM SENIOR CONTRACTS ADMINISTRATOR Deonna Galvan y S, GLUING MACHINE OPERATOR * Do you have serious difficulty walking or climbing stairs? (5 years old or older) Answer Date of Assessment Author No 10/25/2017 2:00 PM SENIOR CONTRACTS ADMINISTRATOR Cole Am y S, GLUING MACHINE OPERATOR * Do you have difficulty dressing or bathing? (5 years old or older) Answer Date of Assessment Author No 10/25/2017 2:00 PM SENIOR CONTRACTS ADMINISTRATOR Cole Am y S, GLUING MACHINE OPERATOR * Because of a physical, mental, or emotional condition, do you have difficulty doing errands alone such as visiting a doctor's office or shopping? (15 years old or older) Answer Date of Assessment Author No 10/25/2017 2:00 PM SENIOR CONTRACTS ADMINISTRATOR Cole Am y S, GLUING MACHINE OPERATOR documented as of this encounter Mental Status * Because of a physical, mental, or emotional condition, do you have serious difficulty concentrating, remembering, or making decisions? (5 years old or older) Answer Entry Date Author No 10/25/2017 2:00 PM SENIOR CONTRACTS ADMINISTRATOR Cole Am y S, GLUING MACHINE OPERATOR documented in this encounter Patient Instructions * Patient Instructions* Emmanuel Jefferson NP - 08/18/2021 2:45 PM CDT Images from the original note were not included. Pre Procedure Checklist Dear Patient, Before you have a procedure at [facility], please note the following: HOUSEHOLD APPLIANCE ASSEMBLER You must have a drivers' cash clerk accompany you at the time of the discharge from the clinic, as you will not be able to drive or operate machinery for 6 hours after the procedure. IF YOU DO NOT HAVE A HOUSEHOLD APPLIANCE ASSEMBLER, YOU WILL BE ASKED TO RESCHEDULE. INFECTION If you have had any recent infections such as cold, urinary tract infection, pneumonia, etc., or have been on antibiotics or steroids within the last 30 days, please call our office. We want to make sure it is still safe for us to proceed with the injection. BLOOD THINNERS If you are currently taking a medication to thin your blood please notify the office. Examples of these include: Coumadin, Plavix, Aggrenox, Brilinta, Effient, Eliquis, Xarelto, Pradaxa, or Pletal. YOU DO NOT HAVE TO HOLD ASPIRIN. Please also notify the office if you have a pacemaker or defibrillator. ALLERGIES Please notify the office if you have an allergy to cortisone, numbing medicine, chlorhexidine, Hibiclens, shellfish, or contrast dye. Also, please let your doctor know if you have chronic kidney disease. Vaccinations Please notify the office if you have had the COVID-19 Vaccination within the last two weeks or are planning to have the vaccination in the near future. You must wait two weeks after receiving the second COVID-19 vaccination to have an injection. EATING AND DRINKING We would prefer that you eat a light meal prior to your procedure and you may take your regular medications unless previously instructed. WHAT TO WEAR Please wear loose fitting clothing that does not have metal buttons, snaps, or zippers. Pants with an elastic waistband are preferred. There is a chance chlorhexidine could get on your clothing, a gown is available if you would prefer. If you have any questions, please contact the clinic at [phone] ext. [phone]. Thank you , [facility] Learning About Epidural Steroid Injections What is an epidural steroid injection? A epidural steroid injection is a mixture of steroid and lidocaine solution that is given to try todecrease pain and inflammation, tingling, or numbness in your neck, arms, back, buttocks, or legs. This may be the result of a injury, disc problem, or arthritis. The injection goes directly into your epidural space, which is the area in your back around your spinal cord. Steroids DO NOT always work immediately, it will usually take a few days for them to work but could take up to 2 weeks, sometimes they may not work at all. The pain relief may only last a few days to a few months or longer. Weare hopeful you will get relief for at least 3 months, which is the soonest the injection may be repeated. You may be able to get a series of these injections at least 4 weeks apart. You are usually able to get 4 injections a year. What is Sacroiliac pain? (SI joint pain and injections) The sacroiliac joints connect the spine and each side of the pelvis. These joints bear the weight and stress of your torso, they are easy to injure and if overused may cause low back pain. Stress on these joints can cause joint pain, Certain kinds of arthritis also may cause this type ofjoint pain. How to prepare for the procedure? ?? Be sure you have someone to take you home. The numbing medicine will make it unsafe for you to drive. ?? Understand exactly what procedure is planned, along with the risks and benefits. ?? Please understand you are scheduled specifically for a procedure that day. Procedure days are typically very busy days for our office. We will occasionally run behind on these days, however we will get you in for your procedure that day. Please be patient with us. ?? If you take a blood thinner, please remember to hold it for the exact number of days that are discussed with you. These medicines increase the risk of bleeding. ?? In order to perform an epidural injection, You will have to lay flat on your stomach for the procedure. You will also have to be able to get on the procedure bed with minimal assistance, we DO NOThave any lifting equipment. ?? Occasionally, we may need to place pillows under your stomach or neck area for the procedure. These may be necessary for proper imaging. How is a lumbar epidural performed? We will use a C-arm machine (or X-ray) to take pictures of your spine during the procedure. The doctor will use a small needle to numb the skin where you are getting the injection, this is called a local anesthetic. After the skin is numb, a epidural needle will be inserted. At this point you will mostly feel pressure. You could also feel some stinging or burning during the injection. After finding the right spot, the doctor will inject CONTRAST dye that will show the steroids will be injected into the right location. Epidural injections usually take about 10 to 15 minutes. What can you expect after a lumbar epidural? You may have a temporary increase in your normal pain level, YES THIS IS NORMAL. This can be causedby needle irritation or the steroids. Your legs may feel heavy or numb right after, Most people areable to walk afterwards, but you may need to be extra careful. Since the epidural contains anesthetic, you may feel better right away, But this pain relief will last only a few hours. This is becausethe steroids have not started working yet. Before the steroids start to work, your back may be sorefor a few days. You may use ice for injection site pain. You may want to do less than normal for a few days after the procedure. If your pain is better, you may be able to keep doing your normal activities, But try not to overdo it, even if your back pain has improved a lot. If your pain is only a l ittle better or if it comes back, your doctor may recommend another injection in a few weeks. We will also be sending you home with more specific discharge instructions. Side effects from an epidural steroid injection May include headache, infection, or bleeding. Serious side effects are rare. But they can include stroke, paralysis, or loss of vision. When should you call your doctor? ?? You have questions or concerns. ?? You don't understand how to prepare for your procedure. ?? You become ill before the procedure (such as fever, flu, or a cold). If you are on antibiotics or steroids (this includes pill form or shots) ?? You need to reschedule or have changed your mind about having the procedure. Follow-up care is a whalen part of your treatment and safety. Be sure to make and go to all appointments, and call your doctor if you are having problems. documented in this encounter Progress Notes * Emmanuel Jefferson NP - 08/18/2021 2:45 PM CDT Subjective: PRIOR INJECTIONS: 06/2021 NOREEN C5-6, 30 % relief for a few days 05/2021 Trigger Point Injections, 0% relief Chief complaint: neck pain History of Present Illness: Edilberto Hawley is a 65 y.o. male with a history of chronic neck pain. Patient is here for follow up evaluation and is accompanied by no one Interim History: The pain level is reported to be 8-9/10. The pain is located upper neck region bilaterally. Patient reports radiation to the top of both shoulders and occasionally radiates to the bicep in his right arm. The pain is described by the patient with the following characteristics: Aching, worse with activity and better with rest. The pain occurs Continuously. The pain is made worse byMovement. The pain is made better by Movement and medication. Patient reports problems with sleeping secondary to the pain. Patient reports right arm weakness associated with the pain. After the lastinjection, which included a NOREEN C5-6, patient reports 30% improvement, that lasted for few days. He states he was pleased with his response to this injection but it was not as long- lasting as he would have hoped. Patient denies bowel or bladder incontinence. Medication side effects are denied withcurrent regimen. The patient is using the following medications as part of the treatment regimen: amitriptyline, baclofen, Voltaren, Percocet Of note, patient is currently on anticoagulation therapy with ASA. Treatment efforts have included Nerve blocks, Home exercise program and Vitamins/supplements/herbalremedies, with and without relief. Treatment efforts have included Medications, with and without relief. *Last updated 08/18/2021. Review of Systems: No fevers or chills associated with pain, no new focal weakness, see above for other systems reviewed. Unless stated above, remaining 12 systems reviewed and negative. Past Medical History: reviewed with patient and, unless stated above, unchanged since prior visit. Family History: reviewed with patient and, unless stated above, unchanged since prior visit Social History: reviewed with patient and, unless stated above, unchanged since prior visit. Objective: PHYSICAL EXAM Vital Signs reviewed GEN: alert, appears stated age and cooperative HEENT: Normocephalic/Atraumatic, EOMI, nares patent, trachea midline CV: adequate distal perfusion, no dependent edema Lungs: non labored breathing, chest rise symmetrical Abdomen: soft, non-tender, no masses Extremities: adequate and functional active range of motion, no peripheral edema or lymphadenopathy Skin: no rashes, normal temperature/turgor/texture, no rash/ulcers/subcutaneous nodules Psych: appropriate affect and appropriate mood; Denied suicidal ideation. Neuro: CN II-XII grossly intact; alert and oriented x 3; sensory intact and symmetrical to the lower extremities to light touch; deep tendon reflexes within normal limits (2+) at patellar bilaterally MSK: Gait Normal/ functional without assistive device ; lower extremity strength functional; extremity atrophy is absent; tenderness lumbar spine, lumbar paraspinals, quadratus lumborum, sacroiliac joints, piriformis; positive facet loading bilaterally, positive Froylan's/JAIRO/SI joint compression/thigh thrust bilaterally, positive straight leg raise bilaterally Upper extremity strength functional and symmetrical, proximal to distal and flexion to extension; no gross deformity or atrophy noted in the upper extremities; active range of motion is normal; tenderness cervical spine, cervical paraspinals, superior trapezius; positive Spurling's bilaterally, posi tive facet loading bilaterally The following muscles (Right and Left Splenius Capitus, Trapezius and Levator Scapula) produced a myofascial pain syndrome (MPS) during examination with findings of restriction of full range of motion of that muscle attachments from guarding, tenderness to palpation with active trigger points within a palpable taut band and a local taut response to snapping palpation producing a referred pain pattern. Imaging: The following images were personally reviewed and discussed with the patient: 02/2021 MRI of the cervical spine shows spondylosis with degeneration and uncovertebral arthropathy throughout; C3-4 mild bilateral foraminal narrowing secondary to disc osteophyte complex; C4-5 moderate disc bulge with moderate canal bilateral foraminal narrowing; C5-6 right paracentral disc protrusion with mild canal and left foraminal narrowing with moderate right foraminal narrowing; C6-7 moderate canal bilateral foraminal narrowing 01/2021 x-ray of the cervical spine shows degenerative space narrowing throughout without fracture or malalignment 08/2019 MRI of the lumbar spine shows spondylosis with degeneration and facet arthropathy L2-S1; L2-3 mild bilateral neuroforaminal narrowing; L3-4 mild spinal canal stenosis with mild right and severe left neuroforaminal stenosis with mass-effect on the exiting left L3 nerve root; L4-5 moderate right and mild left neuroforaminal stenosis; L5-S1 severe right and moderate left neuroforaminal stenosis with mass-effect on the exiting right L5 nerve root and encroachment of the dorsal margin of theexiting left L5 nerve root 08/2019 x-ray of the lumbar spine shows mild age-indeterminate anterior wedge compression fracture deformity of L3; bilateral facet arthropathy at L4-5 and L5-S1 with mild spondylosis. Assessment: Therefore, Edilberto Hawley is a 65 y.o. male who is retired and with a history of substance abuse, on chronic narcotics since 2003, and chronic neck and back pain starting several years ago exacerbating over the last 6 months. His primary concern today is his upper back and neck pain. Recent imaging as stated above is supported by exam findings of a significant myofascial pain syndrome. No signs of symptoms of cauda equina or cervical myelomalacia at this time. Patient's pain appears to be multifactorial at this time from a myofascial pain syndrome, as well as cervical radiculopathy with an underlying facet syndrome. Thus far, trigger point injections did not improve his symptoms. Cervical epidural steroid injection improved his pain mildly for a few weeks therefore we will plan to repeat at this time in hopes for additional improvement in his symptoms. Risks and benefits were discussed in detail patient like to proceed. Recommended to continue with home exercise program. He is pleased with this plan. Once we have addressed his upper back and neck pain more thoroughly, we will proceed with addressing his low back pain. A multidisciplinary approach is recommended and it was explained to the patient that underlying anxiety and depression features can alter the perception of pain and limit the efficacy of treatments unless it is optimally managed. Plan: Myofascial pain: Agree with and continue baclofen 10 mg 3 times daily Pain management: patient is currently taking oxycodone 10/325 which is prescribed by their primary provider. The patient does not report or appear to have any issues of side effects from the medication, misuse, abuse or diversion. Patient can continue to receive this medication from their primary provider unless issues arise; also if not already done so would consider random urine toxicology screen and pain contract between patient and prescriber. Consider referral to [facility] HYDRODYNAMICIST, for evaluation of opiate risk and any insight thatmay help with treatment of this patient's chronic pain. Consider Physical therapy for spinal range of motion, stretching, stabilization and core strengthening with an emphasis on extremity range of motion and a home exercise program which will be paramount to the long-term management of lessening chronic spine pain exacerbations.Continue with physical therapy learned home exercise program which will be paramount to the long-term management of lessening chronic spine pain exacerbations. Recommended healthy diet and increase in cardiovascular exercise to facilitate weight loss which will be paramount to the long-term management of spine health and overall wellness. Risks and benefits of the procedures were discussed with the patient. Risks include, but are not limited to: bleeding; infection; headache; worse pain; no relief from the procedure(s); transient decrease in immunity; paresthesias; nerve damage; paralysis; allergic reaction to the medication(s). At this time we will plan to repeat a cervical epidural steroid injection based on exam as well as the image findings. Depending on the efficacy of these injections we can consider repeating the injection, but with a limit of 4 epidural steroid injections per year. If patient does not respond to the above, consider use of Cymbalta for the underlying depression and anxiety features and to take advantage of the medication's dual function with chronic spine pain. 60 mg a day is the recommended dosage for chronic low back pain, however if the patient's depressionand anxiety features are not improved at this dose after 2 months, then would strongly consider increasing to 120 mg a day. Return to clinic for evaluation of our recommendations and make further adjustments in 1 month postinjection or as needed. Otherwise, patient instructed to follow up with primary/referring provider and consider the above recommendations; if pain should exacerbate or not respond to the above, patient was instructed to call our office to consider adjusting the above recommendations and treatment options as needed. 50% of this clinic visit was spent with direct interaction during my counseling, education and instruction with this patient. This document was dictated using [employer]; regional telecommunications specialist variances may occur * Edilberto Gann MD - 08/18/2021 2:45 PM CDT I have reviewed the notes, assessments, and/or procedures performed by Emmanuel Jefferson NP, and I concur with her documentation of Edilberto Hawley. documented in this encounter Plan of Treatment Not on file documented as of this encounter Goals Goal Patient Goal Type Associated Problems Recent Progress Patient-Stated? Author Blood Pressure < 140/90 Blood Pressure 134/86(2022 2:25 PM CDT) No Leonard Jasso APRN documented as of this encounter Visit Diagnoses Diagnosis Cervicalgia- Primary Cervical spondylosis without myelopathy Degeneration of cervical intervertebral disc Myofascial muscle pain Mylagia and myositis, unspecified Thoracic spine pain Pain in thoracic spine Cervical radiculopathy Brachial neuritis or radiculitis nos Lumbosacral spondylosis without myelopathy Lumbar radiculopathy Thoracic or lumbosacral neuritis or radiculitis, unspecified Degeneration of lumbar or lumbosacral intervertebral disc Sacroiliac pain Disorders of sacrum Lumbar spine pain Lumbago documented in this encounter Additional Health Concerns Assessment Noted Time A fall risk assessment has been complete d for the patient 04/16/2021 8:08 AM CDT A Body Mass Index follow-up plan has been documented for the patient 06/30/2021 12:12 PM CDT documented as of this encounter Care Teams Talent Program Manager Relationship Specialty Start Date End Date Michell Trevizo MD [address] [place] [address] PCP - General Internal Medicine 05/29/21 02/25/22 Lacey Perdue MD [address] [phone] Referring Physician Infectious Diseases 06/28/18 documented as of this encounter
--- OUTSIDE RECORDS SUMMARY | 2024-11-23 00:25 | XMS_ITS | Encounter Summary ---
Author Organization [employer] Address [address] [place] [id number] Care Team Providers Care Clarifier Name Role Phone Lacey Perdue MD Unavailable [phone] Michell Trevizo MD Primary Care Provider [phone] Encounter Details Date Type Department Care Team (Latest Contact Info) Description 08/28/2021 Travel Social History Tobacco Use Types Packs/Day [...] of Assessment Author No 10/25/2017 2:00 PM CELLAR HAND Galvan, Am y S, HIV COUNSELOR * Do you have serious difficulty walking or climbing stairs? (5 years old or older) Answer Date of Assessment Author No 10/25/2017 2:00 PM Deonna Padilla S, HIV COUNSELOR * Do you have difficulty dressing or bathing? (5 years old or older) Answer Date of Assessment Author No 10/25/2017 2:00 PM JOHN Galvan Am y S, HIV COUNSELOR * Because of a physical, mental, or emotional condition, do you have difficulty doing errands alone such as visiting a doctor's office or shopping? (15 years old or older) Answer Date of Assessment Author No 10/25/2017 2:00 PM JOHN Galvan Am y S, HIV COUNSELOR documented as of this encounter Mental Status * Because of a physical, mental, or emotional condition, do you have serious difficulty concentrating, remembering, or making decisions? (5 years old or older) Answer Entry Date Author No 10/25/2017 2:00 PM Deonna Padilla S, HIV COUNSELOR documented in this encounter Plan of [...] documented as of this encounter Care Teams Clarifier Relationship Specialty Start Date End Date Michell Trevizo MD [facility] [place] [address] PCP - General Internal Medicine 05/29/21 02/25/22 Lacey Perdue MD [address] [phone] Referring Physician Infectious Diseases 06/28/18 documented as of this encounter
--- OUTSIDE RECORDS SUMMARY | 2024-11-23 00:25 | XMS_ITS | Encounter Summary ---
Author Organization [employer] Address [address] [place] [address] Care Team Providers Care Rent Collector Name Role Phone Lacey Perdue MD Unavailable [phone] Michell Trevizo MD Primary Care Provider [phone] Reason for Visit * Reason Comments Follow-up 4 weeks Encounter Details Date Type Department Care Team (Latest Contact Info) Description 07/28/2021 9:15 AM CDT Office Visit [facility] Internal Medicine [address] [place] [phone] Michell Trevizo MD [address] [place] [phone] Encounter for long-term current use of medication (Primary Dx); Chronic bilateral low back pain with left-sided sciatica; Spinal stenosis, unspecified spinal region; Hyperlipidemia, unspecified hyperlipidemia type; 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; Herniation of lumbar intervertebral disc without myelopathy; Osteoarthritis of lumbar spine, unspecified spinal osteoarthritis complication status; Hepatic steatosis Social History Tobacco Use Types Packs/Day Years [...] Sign Reading Time Taken Comments Blood Pressure 138/88 07/28/2021 9:01 AM CDT Pulse 70 07/28/2021 9:01 AM CDT Temperature - - Respiratory Rate - - Oxygen Saturation 95% 07/28/2021 9:01 AM CDT Inhaled Oxygen Concentration - - Weight 87.1 kg (192 lb) 07/28/2021 9:01 AM CDT Height - - Body Mass Index 26.78 02/25/2021 9:01 AM CDT documented in this encounter Functional Status * Are you deaf or do you have serious difficulty hearing? Answer Date of Assessment Author No 10/25/2017 2:00 PM Deonna Padilla, PATIENT PORTAL CONCIERGE * Are you blind or do you have serious difficulty seeing, even when wearing glasses? Answer Date of Assessment Author No 10/25/2017 2:00 PM Deonna Padilla, PATIENT PORTAL CONCIERGE * Do you have serious difficulty walking or climbing stairs? (5 years old or older) Answer Date of Assessment Author No 10/25/2017 2:00 PM Deonna Padilla, PATIENT PORTAL CONCIERGE * Do you have difficulty dressing or bathing? (5 years old or older) Answer Date of Assessment Author No 10/25/2017 2:00 PM Deonna Padilla, PATIENT PORTAL CONCIERGE * Because of a physical, mental, or emotional condition, do you have difficulty doing errands alone such as visiting a doctor's office or shopping? (15 years old or older) Answer Date of Assessment Author No 10/25/2017 2:00 PM Deonna Padilla, PATIENT PORTAL CONCIERGE documented as of this encounter Mental Status * Because of a physical, mental, or emotional condition, do you have serious difficulty concentrating, remembering, or making decisions? (5 years old or older) Answer Entry Date Author No 10/25/2017 2:00 PM Deonna Padilla, PATIENT PORTAL CONCIERGE documented in this encounter Patient Instructions * Patient Instructions* Michell Trevizo MD - 07/28/2021 9:15 AM CDT A1C, and remaining labwork today including drug panel. documented in this encounter Progress Notes * Michell Trevizo MD - 07/28/2021 9:15 AM CDT General Internal Medicine Patient Note [facility] CC: Chief Complaint Patient presents with ??? Follow-up 4 weeks History of Present Illness: Edilberto Hawley is a 65 y.o. male presenting to clinic for follow up. Received pain injections which he reports did not help much. Has an appointment with plastics today regarding his L wrist. 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 Prior drug panel with benzodiazepines. We will recheck to ensure there are no longer present. Woodward rings and candy is his problem, but he has cut back. Trying to avoid sugars. Drinks strawberry kiwi snapples. Advised that if his diabetes numbers continue to be elevated I would recommend starting a medication. ROS: Pertinent positives and negatives as mentioned in HPI Past Medical/Surgical/Family/Social History: Reviewed and updated in [facility] History tab Medications: Reviewed and updated in [facility] Medications tab Current Outpatient Medications Medication [...] and updated in Epic Allergies tab BP 138/88 Pulse 70 Wt 87.1 kg (192 lb) SpO2 95% BMI 26.78 kg/m?? Physical Exam Constitutional: Well-nourished, and in no distress. Head: Normocephalic and atraumatic. Eyes: Pupils are [...] warm and dry. Psychiatric: Affect normal. Labs/Imaging: Redemonstration of mild hepatomegaly with mild diffuse hepatic steatosis. No concerning hepatic mass. Assessment & Plan Diagnosis: 1. Encounter for long-term current use of medication 2. Chronic bilateral low back pain with left-sided sciatica 3. Spinal stenosis, unspecified spinal region 4. Hyperlipidemia, unspecified hyperlipidemia type 5. 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 Herniation of lumbar intervertebral disc without myelopathy 7. Osteoarthritis of lumbar spine, unspecified spinal osteoarthritis complication status 8. Hepatic steatosis Medications provided Orders Placed This Encounter Medications ??? amitriptyline (ELAVIL) 100 MG tablet Sig: Take 1 tablet by mouth daily. Dispense: 30 tablet Refill: 5 No refills available Additional Orders: Orders Placed This Encounter Procedures ??? Hemoglobin A1c Informed that drug panel is required prior to further prescription of medications. To go and perform today. I spent a total of 45 minutes on 07/28/2021 reviewing the record, performing a face to [...] documented as of this encounter Results * Hemoglobin A1c (07/28/2021 9:51 AM CDT) Hemoglobin A1C 6.7 % [facility] Comment: Nondiabetic Patient: ? 4.0 - 6.0 % Controlled Diabetic Patient: ?? < 7.0 % Clinical correlation is essential Estimated Avg Glucose 146 mg/dL [facility] Blood 07/28/2021 9:51 AM CDT 07/28/2021 10:33 AM CDT Comment:- Narrative [facility] - 07/28/2021 11:00 AM CDT Testing performed at [facility], [address] [place] [address]. 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 Encounter for long-term (current) use of other medications Herniation of lumbar intervertebral disc without myelopathy Osteoarthritis of lumbar spine, unspecified spinal osteoarthritis complication status Hepatic steatosis Other chronic nonalcoholic liver disease documented in this encounter Additional Health Concerns Assessment Noted Time A fall risk assessment has been complete d for the patient 04/16/2021 8:08 AM CDT A Body Mass Index follow-up plan has been documented for the patient 06/30/2021 12:12 PM CDT documented as of this encounter Care Teams Rent Collector Relationship Specialty Start Date End Date Michell Trevizo MD [address] [place] [address] PCP - General Internal Medicine 05/29/21 02/25/22 Lacey Perdue MD [address] [phone] Referring Physician Infectious Diseases 06/28/18 documented as of this encounter
--- OUTSIDE RECORDS SUMMARY | 2024-11-23 00:25 | XMS_ITS | Encounter Summary ---
Author Organization [employer] Address [address] [place] [address] Care Team Providers Care Analog Circuit Designer Name Role Phone Lacey Perdue MD Unavailable [phone] Michell Trevizo MD Primary Care Provider [phone] Reason for Visit * Reason Comments Follow-up Encounter Details Date Type Department Care Team (Late st Contact Info) Description 06/24/2021 9:15 AM CDT Office Visit [facility] Spine and Joint [address] [place] [phone] Emmanuel Jefferson, ELECTRIC METER INSPECTOR [address] [place] [phone] Cervical spondylosis without myelopathy (Primary Dx); Degeneration of cervical intervertebral disc; Myofascial muscle pain; Cervicalgia; Cervical radiculopathy; Thoracic spine pain; Lumbosacral spondylosis without myelopathy; Lumbar radiculopathy; Degeneration of lumbar or lumbosacral intervertebral disc Social History Tobacco Use Types [...] have Coronavirus / COVID-19? No / Unsure 05/29/2021 8:38 AM CDT documented as of this encounter Last Filed Vital Signs Vital Sign Reading Time Taken Comments Blood Pressure 142/86 06/24/2021 9:04 AM CDT Pulse 80 06/24/2021 9:04 AM CDT Temperature - - Respiratory Rate - - Oxygen Saturation 96% 06/24/2021 9:04 AM CDT Inhaled Oxygen Concentration - - Weight - - Height - - Body Mass Index - - documented in this encounter Functional Status * Are you deaf or do you have serious difficulty hearing? Answer Date of Assessment Author No 10/25/2017 2:00 PM JOHN Galvan Am y S, DRAMATIC TEACHER * Are you blind or do you have serious difficulty seeing, even when wearing glasses? Answer Date of Assessment Author No 10/25/2017 2:00 PM Deonna Padilla S, DRAMATIC TEACHER * Do you have serious difficulty walking or climbing stairs? (5 years old or older) Answer Date of Assessment Author No 10/25/2017 2:00 PM RUBBER BALL FINISHER Deonna Galvan y S, DRAMATIC TEACHER * Do you have difficulty dressing or bathing? (5 years old or older) Answer Date of Assessment Author No 10/25/2017 2:00 PM RUBBER BALL FINISHER Cole Am y S, DRAMATIC TEACHER * Because of a physical, mental, or emotional condition, do you have difficulty doing errands alone such as visiting a doctor's office or shopping? (15 years old or older) Answer Date of Assessment Author No 10/25/2017 2:00 PM RUBBER BALL FINISHER Deonna Galvan y S, DRAMATIC TEACHER documented as of this encounter Mental Status * Because of a physical, mental, or emotional condition, do you have serious difficulty concentrating, remembering, or making decisions? (5 years old or older) Answer Entry Date Author No 10/25/2017 2:00 PM RUBBER BALL FINISHER Cole Am y S, DRAMATIC TEACHER documented in this encounter Patient Instructions * Patient Instructions* Emmanuel Jefferson NP - 06/24/2021 9:15 AM CDT Images from the original note were not included. Pre Procedure Checklist Dear Patient, Before you have a procedure at [facility], please note the following: CARDING MACHINE OPERATOR You must have a xm1 tank driver accompany you at the time of the discharge from the clinic, as you will not be able to drive or operate machinery for 6 hours after the procedure. IF YOU DO NOT HAVE A CARDING MACHINE OPERATOR, YOU WILL BE ASKED TO RESCHEDULE. INFECTION [...] any questions, please contact the clinic at [phone] ext. [phone]. Thank you , Interventional Spine and Joint [...] Progress Notes * Emmanuel Jefferson NP - 06/24/2021 9:15 AM CDT Subjective: PRIOR INJECTIONS: 05/2021 Trigger Point Injections, 0% relief Chief complaint: neck pain History of Present Illness: Edilberto Hawley is a 65 y.o. male with a history of chronic neck pain. Patient is here for follow up evaluation and is accompanied by no one Interim History: The pain level is reported to be 9/10. The pain is located in the neck and radiates into the right arm to the elbow. The patient denies numbness and tingling of the upper extremities. The pain is described by the patient with the following characteristics: Aching, worse with activity and better with rest. The pain occurs Continuously. The pain is made worse by Movement and sleeping. The pain is made better by medications. Patient reports problems with sleeping secondary to the pain. Patient reports weakness associated with the pain. After the last injection, which included a Trigger Point injection, patient reports 0% improvement. Patient states he is in more pain now than he was prior to the trigger point injections. Patient denies bowel or bladder incontinence. Medication side effects are denied with current regimen. He would like to discuss additional interventional options at this time. The patient is using the following medications as part of the treatment regimen: amitriptyline, baclofen, Voltaren, Percocet Of note, patient is currently on anticoagulation therapy with ASA. Treatment efforts have included Nerve blocks, Home exercise program and Vitamins/supplements/herbalremedies, with and without relief. *Last updated 06/24/2021. Review of Systems: No fevers or chills [...] snapping palpation producing a referred pain pattern. Imaging The following images were personally reviewed and [...] point injections did not improve his symptoms. At this time we will proceed with a cervical epidural steroid injection. Risks and benefits were discussed in detail [...] between patient and prescriber. Consider referral to [facility] CHIEF CREATIVE OFFICER, for evaluation of opiate risk and any [...] nerve damage; paralysis; allergic reaction to the medication(s); For diagnostic and therapeutic options we will offer the patient a cervical epidural steroid injection based on [...] recommendations and make further adjustments in 1 month(s) or as needed. Otherwise, patient instructed to [...] this patient. This document was dictated using [employer]; shotgun shell assembly machine adjuster variances may occur * Edilberto Gann MD - 06/24/2021 9:15 AM CDT I have reviewed the notes, [...] as of this encounter Visit Diagnoses Diagnosis Cervical spondylosis without myelopathy- Primary Degeneration of cervical intervertebral disc Myofascial muscle pain Mylagia and myositis, unspecified Cervicalgia Cervical radiculopathy Brachial neuritis or radiculitis nos Thoracic spine pain Pain in thoracic spine Lumbosacral spondylosis without myelopathy Lumbar radiculopathy Thoracic or lumbosacral neuritis or radiculitis, unspecified Degeneration of lumbar or lumbosacral intervertebral disc documented in this encounter Additional Health Concerns Assessment Noted Time A fall risk assessment has been complete d for the patient 04/16/2021 8:08 AM CDT documented as of this encounter Care Teams Analog Circuit Designer Relationship Specialty Start Date End Date Michell Trevizo MD [facility] [place] [address] PCP - General Internal Medicine 05/29/21 02/25/22 Lacey Perdue MD [address] [place] [phone] Referring Physician Infectious Diseases 06/28/18 documented as of this encounter
--- OUTSIDE RECORDS SUMMARY | 2024-11-23 00:25 | XMS_ITS | Encounter Summary ---
Author Organization [employer] Address [address] [place] [address] Care Team Providers Care Lump Room Supervisor Name Role Phone Lacey Perdue MD Unavailable [phone] Michell Trevizo MD Primary Care Provider [phone] Encounter Details Date Type Department Care Team (Late st Contact Info) Description 10/14/2021 10:15 AM CULTURE ROOM WORKER Lab [facility] [address] [place] [address] Congestion of nasal sinus Social History Tobacco Use Types Packs/Day Years [...] COVID-19? No / Unsure 10/14/2021 8:23 AM CULTURE ROOM WORKER documented as of this encounter Functional Status * Are you deaf or do you have serious difficulty hearing? Answer Date of Assessment Author No 10/25/2017 2:00 PM CULTURE ROOM WORKER Deonna Galvan ARNP * Are you blind or do you have serious difficulty seeing, even when wearing glasses? Answer Date of Assessment Author No 10/25/2017 2:00 PM Deonna Padilla, FULL STACK ENGINEER * Do you have serious difficulty walking or climbing stairs? (5 years old or older) Answer Date of Assessment Author No 10/25/2017 2:00 PM Deonna Padilla, FULL STACK ENGINEER * Do you have difficulty dressing or bathing? (5 years old or older) Answer Date of Assessment Author No 10/25/2017 2:00 PM Deonna Padilla, FULL STACK ENGINEER * Because of a physical, mental, or emotional condition, do you have difficulty doing errands alone such as visiting a doctor's office or shopping? (15 years old or older) Answer Date of Assessment Author No 10/25/2017 2:00 PM Deonna Padilla, FULL STACK ENGINEER documented as of this encounter Mental Status * Because of a physical, mental, or emotional condition, do you have serious difficulty concentrating, remembering, or making decisions? (5 years old or older) Answer Entry Date Author No 10/25/2017 2:00 PM Deonna Padilla, FULL STACK ENGINEER documented in this encounter Progress Notes * Anna Vaughn LPN - 10/14/2021 10:15 AM CST Patient presenting for a symptomatic COVID test. Specimen received from the left nare. Pt toleratedprocedure well. Patient presented with symptoms of: Fever :No Cough:No Shortness of breath:No Loss of taste:No Loss of smell:No Chills:No Body aches:No Charge: G2023 Patient swabbed by Anna Vaughn LPN Cosigned by Michell Trevizo MD at 10/14/2021 5:04 PM CULTURE ROOM WORKER URE ROOM WORKER URE ROOM WORKER Associated attestation - Michell Trevizo MD - 10/14/2021 5:04 PM CULTURE ROOM WORKER I was the collaborating physician for this encounter. Michell Trevizo MD 10/14/2021 5:04 PM documented in this encounter Plan of Treatment Not on file documented as of this encounter Goals Goal Patient Goal Type Associated Problems Recent Progress Patient-Stated? Author Blood Pressure < 140/90 Blood Pressure 134/86(2022 2:25 PM CDT) No Leonard Jasso APRN documented as of this encounter Procedures Procedure Name Priority Date/Time Associated Diagnosis Comments CORONAVIRUS SARS-COV-2 Routine 10/14/2021 9:41 AM CULTURE ROOM WORKER Congestion of nasal sinus documented in this encounter Results * (ABNORMAL) Coronavirus SARS-CoV-2 (10/14/2021 9:41 AM CULTURE ROOM WORKER) SARS-CoV-2 PCR POSITIVE( A) Negative [facility] Comment:The novel coronaviru s (Sars-CoV-2) target nucleic acids are detected. NASOPHARYNGEAL SWAB / Unknown 10/14/2021 9:41 AM CULTURE ROOM WORKER 10/14/2021 11:17 AM CULTURE ROOM WORKER Comment:- Narrative [facility] - 10/14/2021 1:32 PM CULTURE ROOM WORKER Indication Reason:->Suspected COVID-19 OP Testing is performed by the prollie GeneXpert real-time, reverse watch repair person polymerase chain reaction (RT-PCR) assay. Testing with the Xpert Xpress Sars-CoV-2 test is only for use under the FDA Emergency Use Authorization (EUA). A negative test result does not preclude Sars-CoV-2 infection. ??Test results may be affected by specimen collection and/or integrity, technical error, or a low level of organism in the specimen which may fall below the sensitivity of the test. Results from the Sars-CoV-2 assay should be interpreted in conjunction with other laboratory and clinical data available to the physician. Testing performed at [facility], [address] [place] [address]. CLIA [id number] Phone [phone] Ext [phone] ??Brigadier Shant Rivas MD Michell Trevizo MD MICROBIOLOGY - GENERAL ORDERAB LES Final Result [facility] [address] [phone] documented in this encounter Visit Diagnoses Diagnosis Congestion of nasal sinus Other diseases of nasal cavity and sinuses documented in this encounter Additional Health Concerns Assessment Noted Time A fall risk assessment has been complete d for the patient 08/27/2021 11:36 AM CDT A Body Mass Index follow-up plan has been documented for the patient 06/30/2021 12:12 PM CDT documented as of this encounter Care Teams Lump Room Supervisor Relationship Specialty Start Date End Date Michell Trevizo MD [address] [place] [address] PCP - General Internal Medicine 05/29/21 02/25/22 Lacey Perdue MD [address] [phone] Referring Physician Infectious Diseases 06/28/18 documented as of this encounter
--- OUTSIDE RECORDS SUMMARY | 2024-11-23 00:25 | XMS_ITS | Encounter Summary ---
Author Organization [employer] Address [address] [place] [address] Care Team Providers Care Direct Support Professional Name Role Phone Lacey Perdue MD Unavailable [phone] Michell Trevizo MD Primary Care Provider Reason for Visit * Reason Onset Date Comments Medication Refill 12/19/2021 Resent Fax wit insurance card Encounter Details Date Type Department Care Team (Late st Contact Info) Description 12/19/2021 Telephone [facility] ENT [address] [place] [address] Sandy Galindo LPN [address] [place] [address] Medication Refill (Resent Fax with insurance card ) Social History Tobacco Use Types Packs/Day [...] COVID-19? No / Unsure 12/15/2021 1:26 PM BARBER documented as of this encounter Functional Status * Are you deaf or do you have serious difficulty hearing? Answer Date of Assessment Author No 10/25/2017 2:00 PM BARBER Deonna Galvan, ENGRAVER OPTICAL FRAMES * Are you blind or do you have serious difficulty seeing, even when wearing glasses? Answer Date of Assessment Author No 10/25/2017 2:00 PM BARBER Cole Am y S, ENGRAVER OPTICAL FRAMES * Do you have serious difficulty walking or climbing stairs? (5 years old or older) Answer Date of Assessment Author No 10/25/2017 2:00 PM BARBER Deonna Galvan y S, ENGRAVER OPTICAL FRAMES * Do you have difficulty dressing or bathing? (5 years old or older) Answer Date of Assessment Author No 10/25/2017 2:00 PM Deonna Padilla S, ENGRAVER OPTICAL FRAMES * Because of a physical, mental, or emotional condition, do you have difficulty doing errands alone such as visiting a doctor's office or shopping? (15 years old or older) Answer Date of Assessment Author No 10/25/2017 2:00 PM BARBER Deonna Galvan S, ENGRAVER OPTICAL FRAMES documented as of this encounter Mental Status * Because of a physical, mental, or emotional condition, do you have serious difficulty concentrating, remembering, or making decisions? (5 years old or older) Answer Entry Date Author No 10/25/2017 2:00 PM Deonna Padilla, ENGRAVER OPTICAL FRAMES documented in this encounter Miscellaneous Notes * Telephone Encounter - Sandy Galindo LPN - 12/19/2021 9:51 AM CST Se called saying he wanted Mometasone to be run under his insurance. I resent order with his insurance card. ER documented in this encounter Plan of Treatment [...] documented as of this encounter Care Teams Direct Support Professional Relationship Specialty Start Date End Date Michell Trevizo MD [address] [place] [address] PCP - General Internal Medicine 05/29/21 02/25/22 Lacey Perdue MD [address] [phone] Referring Physician Infectious Diseases 06/28/18 documented as of this encounter
--- OUTSIDE RECORDS SUMMARY | 2024-11-23 00:25 | XMS_ITS | Encounter Summary ---
Author Organization [employer] Address [address] [place] [address] Care Team Providers Care Flying Squad Worker Name Role Phone Lacey Perdue MD Unavailable [phone] Michell Trevizo MD Primary Care Provider [phone] Encounter Details Date Type Department Care Team (Latest Contact Info) Description 09/04/2021 Travel Social History Tobacco Use Types Packs/Day [...] have Coronavirus / COVID-19? No / Unsure 09/04/2021 9:44 AM CDT documented as of this encounter Functional Status * Are you deaf or do you have serious difficulty hearing? Answer Date of Assessment Author No 10/25/2017 2:00 PM Deonna Padilla ARNP * Are you blind or do you have serious difficulty seeing, even when wearing glasses? Answer Date of Assessment Author No 10/25/2017 2:00 PM EXAM PROCTOR Galvan, Am y S, RESERVATIONS MANAGER * Do you have serious difficulty walking or climbing stairs? (5 years old or older) Answer Date of Assessment Author No 10/25/2017 2:00 PM Deonna Padilla S, RESERVATIONS MANAGER * Do you have difficulty dressing or bathing? (5 years old or older) Answer Date of Assessment Author No 10/25/2017 2:00 PM JOHN Galvan Am y S, RESERVATIONS MANAGER * Because of a physical, mental, or emotional condition, do you have difficulty doing errands alone such as visiting a doctor's office or shopping? (15 years old or older) Answer Date of Assessment Author No 10/25/2017 2:00 PM JOHN Galvan Am y S, RESERVATIONS MANAGER documented as of this encounter Mental Status * Because of a physical, mental, or emotional condition, do you have serious difficulty concentrating, remembering, or making decisions? (5 years old or older) Answer Entry Date Author No 10/25/2017 2:00 PM Deonna Padilla S, RESERVATIONS MANAGER documented in this encounter Plan of [...] documented as of this encounter Care Teams Flying Squad Worker Relationship Specialty Start Date End Date Michell Trevizo MD [facility] [place] [address] PCP - General Internal Medicine 05/29/21 02/25/22 Lacey Perdue MD [address] [phone] Referring Physician Infectious Diseases 06/28/18 documented as of this encounter
--- OUTSIDE RECORDS SUMMARY | 2024-11-23 00:25 | XMS_ITS | Encounter Summary ---
Author Organization [facility] Address [address] [place] [address] Care Team Providers Care Moth Proofer Name Role Phone Lacey Perdue MD Unavailable [phone] Michell Trevizo MD Primary Care Provider [phone] Encounter Details Date Type Department Care Team (Latest Contact Info) Description 10/14/2021 Travel Social History Tobacco Use Types Packs/Day [...] COVID-19? No / Unsure 10/14/2021 8:23 AM DANCE CRITIC documented as of this encounter Functional Status * Are you deaf or do you have serious difficulty hearing? Answer Date of Assessment Author No 10/25/2017 2:00 PM DANCE CRITIC Deonna Galvan ARNP * Are you blind or do you have serious difficulty seeing, even when wearing glasses? Answer Date of Assessment Author No 10/25/2017 2:00 PM DANCE CRITIC Galvan, Am y S, HEALTHCARE FACILITY ADMINISTRATOR * Do you have serious difficulty walking or climbing stairs? (5 years old or older) Answer Date of Assessment Author No 10/25/2017 2:00 PM Deonna Padilla S, HEALTHCARE FACILITY ADMINISTRATOR * Do you have difficulty dressing or bathing? (5 years old or older) Answer Date of Assessment Author No 10/25/2017 2:00 PM DANCE CRITIC Deonna Galvan y S, HEALTHCARE FACILITY ADMINISTRATOR * Because of a physical, mental, or emotional condition, do you have difficulty doing errands alone such as visiting a doctor's office or shopping? (15 years old or older) Answer Date of Assessment Author No 10/25/2017 2:00 PM JOHN Galvan Am y S, HEALTHCARE FACILITY ADMINISTRATOR documented as of this encounter Mental Status * Because of a physical, mental, or emotional condition, do you have serious difficulty concentrating, remembering, or making decisions? (5 years old or older) Answer Entry Date Author No 10/25/2017 2:00 PM Deonna Padilla, HEALTHCARE FACILITY ADMINISTRATOR documented in this encounter Plan of Treatment [...] documented as of this encounter Care Teams Moth Proofer Relationship Specialty Start Date End Date Michell Trevizo MD [address] [place] [address] PCP - General Internal Medicine 05/29/21 02/25/22 Lacey Perdue MD [address] [phone] Referring Physician Infectious Diseases 06/28/18 documented as of this encounter
--- OUTSIDE RECORDS SUMMARY | 2024-11-23 00:25 | XMS_ITS | Encounter Summary ---
Author Organization [employer] Address [address] [place] [address] Care Team Providers Care Duty Manager Name Role Phone Lacey Perdue MD Unavailable [phone] Michell Trevizo MD Primary Care Provider [phone] Reason for Visit * Reason Comments [facility] Outpatient Encounter Details Date Type Department Care Team (Latest Contact Info) Description 08/29/2021 9:00 AM CDT Clinical Support [facility] [address] [place] [phone] Carson Wolff MD [address] [place] [phone] Nasal obstruction (Primary Dx); Deviated nasal septum; Hypertrophy of both inferior nasal turbinates; Chronic maxillary sinusitis; Chronic ethmoidal sinusitis; Chronic sphenoidal sinusitis; Recurrent sinusitis Social History Tobacco Use Types Packs/Day Years [...] of Assessment Author No 10/25/2017 2:00 PM SNAPPER ON Deonna Galvan y S, [employer]OVE [employer]NER AND FORMER AUT[employer]ATIC * Are you blind or do you have serious difficulty seeing, even when wearing glasses? Answer Date of Assessment Author No 10/25/2017 2:00 PM SNAPPER ON Galvan, Am y S, GLOVE TURNER AND FORMER AUTOMATIC * Do you have serious difficulty walking or climbing stairs? (5 years old or older) Answer Date of Assessment Author No 10/25/2017 2:00 PM SNAPPER ON Cole Am y S, GLOVE T[employer]NER AND FORMER AUTOMATIC * Do you have difficulty dressing or bathing? (5 years old or older) Answer Date of Assessment Author No 10/25/2017 2:00 PM SNAPPER ON Cole Am y S, GLOVE TURNER AND FORMER AUTOMATIC * Because of a physical, mental, or emotional condition, do you have difficulty doing errands alone such as visiting a doctor's office or shopping? (15 years old or older) Answer Date of Assessment Author No 10/25/2017 2:00 PM SNAPPER ON Cole Am y S, GLOVE TURNER AND FORMER AUTOMATIC documented as of this encounter Mental Status * Because of a physical, mental, or emotional condition, do you have serious difficulty concentrating, remembering, or making decisions? (5 years old or older) Answer Entry Date Author No 10/25/2017 2:00 PM SNAPPER ON Deonna Galvan y S, GLOVE TURNER AND FORMER AUTOMATIC documented in this encounter Progress Notes * Carson Wolff MD - 08/29/2021 9:00 AM CDT OPERATIVE REPORT DATE OF SURGERY: 08/29/21 LOCATION OF SURGERY: [facility] ([facility]) PRE-OPERATIVE DIAGNOSIS: Nasal septal deviation, bilateral inferior turbinate hypertrophy with obstructed nasal breathing; chronic rhinosinusitis affecting bilateral maxillary, ethmoid, sphenoid sinuses. POST-OPERATIVE DIAGNOSIS: Nasal septal deviation, bilateral inferior turbinate hypertrophy with obstructed nasal breathing; chronic rhinosinusitis affecting bilateral maxillary, ethmoid, sphenoid sinuses. PROCEDURE: Endonasal septoplasty (CPT: 23610) Bilateral inferior turbinate submucous resection (CPT: 59893 modifier 50) Nasal/sinus endoscopy, surgical, with maxillary antrostomy; with removal of tissue from maxillary sinus - bilateral (CPT: 60586; modifier 50) Nasal/sinus endoscopy, surgical, with ethmoidectomy; partial (anterior) - bilateral (CPT: 00393; modifier 50) Nasal/sinus endoscopy, surgical with dilation of sphenoid sinus ostium - bilateral (CPT: 02108, modifier 50) Use of Image Guidance for sinus surgery (CPT: 95807) SURGEON: Carson Wolff MD, PhD ANESTHESIA: thread trimmer: None EBL: 30 mL SPECIMENS: Right maxillary sinus contents (permanent) IMPLANTS/GRAFTS: Propel Mini curved delivery system (98430) placement in right maxillary (S1091 x 1 units) Propel Mini curved delivery system (30826) placement in left maxillary (S1091 x 1 units) PosiSepX bilaterally Crowell splints bilaterally INDICATIONS: 65 y.o. male with chronic rhinosinusitis who is indicated for endoscopic sinus surgery. Patient also has chronic nasal obstruction secondary to septal deviation and bilateral inferior turbinate hypertrophy and is indicated for septoplasty and bilateral ITR. OPERATIVE FINDINGS: Nasal septal deviation: prominent right septal deviation [...] used throughout sinus portions of the surgery. DESCRIPTION OF PROCEDURE: After reviewing informed consent and answering the patient's questions the patient was brought backto the operating room and laid supine on the bed. General anesthesia was induced and the patient was orotracheally intubated by the anesthesia team. The head of bed was rotated 180 degrees. The patient was appropriately positioned on the bed and all pressure points padded. The image guidance systemwas then configured according to the ledger poster's instructions and the patient registered with the system and correct patient information confirmed. Image guidance was necessary due to the absence of normal anatomical landmarks. It was utilized throughout the procedure to confirm the location of t he skull base, lamina papyracea, and other structures. The patient was draped in the usual clean fashion for nose/sinus surgery and placed in reverse Trendelenburg position. A multidisciplinary timeout was performed. Afrin-soaked pledgets were placed in bilateral nasal passages. The pledgets were removed and the septum was injected with 8 mL of 1% lidocaine with 1:100,000 epinephrine. Pledgets were placed back inthe nose. The patient was then draped in the usual sterile fashion. Pledgets were removed. The septum was addressed. Adhesion band between left inferior turbinate and septum was released with Cade. A left septal hemitransfixion incision was made with a 15 blade. A zhane elevator and thenfreer elevator were used to raise a mucoperichondrial flap on the left extending posteriorly to raise a mucoperiosteal flap on the posterior septum. 1.5 cm from caudal septal edge, a 15 blade was used to incise the cartilage leaving the 1.5cm caudal strut. The zhane and freer elevators were then used to similarly raise mucoperichondrial/mucoperiosteal septal flap on the right. Care was taken over septal spurs to avoid rents in the septum. Once the bilateral flaps were raised and the septum exposed, a swivel blade was used to make dorsal cut extending posteriorly to the bony-cartilaginous junction and then brought inferiorly to separate the cartilage from the bony septum. Care was taken to leave at least 1 cm dorsal strut. Holden forceps were used to remove the septal cartilage. Bony spurs inferiorly on the maxillary crest were removed with osteotome. Deviated portions of bony septumposteriorly were removed with Zaira forceps after using scissors to make a dorsal bony cut, posterior bony septum from the skull base. After being satisfied that deviated portions of septum had been adequately removed, the nose was examined. There was a mucosal rent on the right and on the left. 4-0 plain gut suture on a Gilberto needle was then used in quilting stitch fashion to bring the septum together and re- approximate the rents. 4-0 chromic suture was used in simple running manner to close the hemitransfixion incision. The turbinates were addressed. 1.5 mL of 1% lidocaine with 1:100,000 epinephrine was injected into each inferior turbinate. Starting on the right, a microdebrider with turbinate blade was used for submucous resection of the inferior turbinate. Overlying mucosa preserved. The left inferior turbinatewas similarly treated with the microdebrider. Cade elevator then used to outfracture the inferior turbinates bilaterally. Rigid nasal endoscopy was performed on both sides. 1% lidocaine with epinephrine 1:100,000 was injected in the lateral nasal wall and the axilla of the middle turbinate on both sides (1 mL on each side) and the middle meatus on both sides packed with epinephrine-soaked cottonoid pledgets. The left side was address first. Pledgets were removed. Sphenoidotomy was created using balloon dilation system. Verification of the balloon catheter in the sphenoid sinus was confirmed with image guidance technology. Balloon was dilated to 12 judith and then released. Two dilations were done. The sphenoid sinus was irrigated with sterile saline. After gently medializing the middle turbinate with Cade, the middle meatus was visualized and the uncinate was removed with a freer and back biting forceps. The natural ostium of the maxillary sinusidentified with a ball-tip prove and opened in a posterior and inferior direction to create a largeantrostomy, connecting the accessory os with the natural os. Tissue was removed from maxillary antrostomy and it was further opened with through-cutting forceps and microdebrider. The sinus was irrigated with sterile saline. Partial ethmoidectomy was then performed by proceeding through the ethmoid bulla with image-guided suction and into the anterior ethmoid cells. Through-cutting forceps were utilized to further open the anterior ethmoid sinuses. Mucosal edges were further removed with microdebrider. The contralateral side (right) was then addressed in a similar fashion performing a maxillary antrostomy with tissue removal, partial ethmoidectomy, and sphenoidotomy with balloon dilation. Pledgets were removed. Sphenoidotomy was created using balloon dilation system. Verification of the balloon catheter in the sphenoid sinus was confirmed with image guidance technology. Balloon was dilated to 12 judith and then released. Two dilations were done. The sphenoid sinus was irrigated with sterile saline. After gently medializing the middle turbinate with Cade, the middle meatus was visualized and the uncinate was removed with a freer and back biting forceps. The natural ostium of the maxillary sinusidentified with a ball-tip prove and opened in a posterior and inferior direction to create a largeantrostomy, connecting the accessory os with the natural os. Tissue was removed from maxillary antrostomy and mucus retention cyst was opened and drained. Antrostomy was further opened with through-cutting forceps and microdebrider. The sinus was irrigated with sterile saline. Partial ethmoidectomy was then performed by proceeding through the ethmoid bulla with image-guided suction and into the anterior ethmoid cells. Through-cutting forceps were utilized to further open the anterior ethmoid sinuses. Mucosal edges were further removed with microdebrider. Hemostasis was obtained bilaterally with Afrin-soaked cottonoid pledgets. Due to inflammatory mucosa, decision was made to place steroid-eluting implants in the maxillary antrostomies. Propel Mini implants were placed in each maxillary antrostomy site. PosiSepX was trimmed to size and placed in bilateral middle meatuses/ethmoidectomy cavities. The nose was then re-examined and hemostasis verified. The nasopharynx was suctioned. Bilateral Crowell splints were placed and secured with 3-0 nylon suture with knot on the left. Throughout the procedure, the eyes were intermittently examined. There was no evidence of violationto the lamina papyracea, and the eyes were soft to palpation on both sides. The patient tolerated the procedure well and was extubated in the operating room. A drip pad was placed below the nose. Patient was transported safely to PACU. No immediate complications noted. Patient was examined when awake in the PACU and was doing well with normal eye movement. He did express pain in the right upper scapula region after surgery; no redness when the area was checked, butdid have tenderness to palpation. PLAN: Follow up in 1 week for post-operative debridement with Dr. Wolff. Follow up 1 week afterthat for possible 2nd debridement. Follow up 1 month after that. Carson Wolff M.D., Ph.D. Pediatric and General Otolaryngology [facility] documented in this encounter Plan of Treatment Not on file documented as of this encounter Goals Goal Patient Goal Type Associated Problems Recent Progress Patient-Stated? Author Blood Pressure < 140/90 Blood Pressure 134/86(2022 2:25 PM CDT) No Leonard Jasso, ANGIE documented as of this encounter Visit Diagnoses Diagnosis Nasal obstruction- Primary Other diseases of nasal cavity and sinuses Deviated nasal septum Hypertrophy of both inferior nasal turbinates Hypertrophy of nasal turbinates Chronic maxillary sinusitis Chronic ethmoidal sinusitis Chronic sphenoidal sinusitis Recurrent sinusitis Unspecified sinusitis (chronic) documented in this encounter Additional Health Concerns Assessment Noted Time A fall risk assessment has been complete d for the patient 08/27/2021 11:36 AM CDT A Body Mass Index follow-up plan has been documented for the patient 06/30/2021 12:12 PM CDT documented as of this encounter Care Teams Duty Manager Relationship Specialty Start Date End Date Michell Trevizo MD [address] [place] [id number] PCP - General Internal Medicine 05/29/21 02/25/22 Lacey Perdue MD [facility] [phone] Referring Physician Infectious Diseases 06/28/18 documented as of this encounter
--- OUTSIDE RECORDS SUMMARY | 2024-11-23 00:25 | XMS_ITS | Encounter Summary ---
Author Organization [employer] Address [address] [place] [address] Care Team Providers Care Vp Customer Service Name Role Phone Lacey Perdue MD Unavailable [phone] Michell Trevizo MD Primary Care Provider Encounter Details Date Type Department Care Team (Latest Contact Info) Description 06/30/2021 Travel Social History Tobacco Use Types Packs/Day [...] of Assessment Author No 10/25/2017 2:00 PM FIREARMS INSPECTOR Galvan, Am y S, CLIENT APPLICATION SUPPORT ENGINEER * Do you have serious difficulty walking or climbing stairs? (5 years old or older) Answer Date of Assessment Author No 10/25/2017 2:00 PM Deonna Padilla S, CLIENT APPLICATION SUPPORT ENGINEER * Do you have difficulty dressing or bathing? (5 years old or older) Answer Date of Assessment Author No 10/25/2017 2:00 PM JOHN Galvan Am y S, CLIENT APPLICATION SUPPORT ENGINEER * Because of a physical, mental, or emotional condition, do you have difficulty doing errands alone such as visiting a doctor's office or shopping? (15 years old or older) Answer Date of Assessment Author No 10/25/2017 2:00 PM JOHN Galvan Am y S, CLIENT APPLICATION SUPPORT ENGINEER documented as of this encounter Mental Status * Because of a physical, mental, or emotional condition, do you have serious difficulty concentrating, remembering, or making decisions? (5 years old or older) Answer Entry Date Author No 10/25/2017 2:00 PM Deonna Padilla S, CLIENT APPLICATION SUPPORT ENGINEER documented in this encounter Plan of [...] documented as of this encounter Care Teams Vp Customer Service Relationship Specialty Start Date End Date Michell Trevizo MD [facility] [place] [address] PCP - General Internal Medicine 05/29/21 02/25/22 Lacey Perdue MD [address] [phone] Referring Physician Infectious Diseases 06/28/18 documented as of this encounter
--- OUTSIDE RECORDS SUMMARY | 2024-11-23 00:25 | XMS_ITS | Encounter Summary ---
Author Organization [facility] Address [address] [place] [address] Care Team Providers Care Gear Lapping Machine Operator Name Role Phone Lacey Perdue MD Unavailable [phone] Michell Trevizo MD Primary Care Provider [phone] Encounter Details Date Type Department Care Team (Late st Contact Info) Description 10/06/2021 Orders Only [facility] Centralized Scanning Carson Wolff MD [address] [place] [phone] Social History Tobacco Use Types [...] COVID-19? No / Unsure 10/14/2021 8:23 AM CONTRACT MAIL CARRIER documented as of this encounter Functional Status * Are you deaf or do you have serious difficulty hearing? Answer Date of Assessment Author No 10/25/2017 2:00 PM CONTRACT MAIL CARRIER Galvan, Am y S, MINING PLANT OPERATOR * Are you blind or do you have serious difficulty seeing, even when wearing glasses? Answer Date of Assessment Author No 10/25/2017 2:00 PM JOHN Galvan Am y S, MINING PLANT OPERATOR * Do you have serious difficulty walking or climbing stairs? (5 years old or older) Answer Date of Assessment Author No 10/25/2017 2:00 PM JOHN Galvan Am y S, MINING PLANT OPERATOR * Do you have difficulty dressing or bathing? (5 years old or older) Answer Date of Assessment Author No 10/25/2017 2:00 PM JOHN Galvan Am y S, MINING PLANT OPERATOR * Because of a physical, mental, or emotional condition, do you have difficulty doing errands alone such as visiting a doctor's office or shopping? (15 years old or older) Answer Date of Assessment Author No 10/25/2017 2:00 PM JOHN Galvan Am y S, MINING PLANT OPERATOR documented as of this encounter Mental Status * Because of a physical, mental, or emotional condition, do you have serious difficulty concentrating, remembering, or making decisions? (5 years old or older) Answer Entry Date Author No 10/25/2017 2:00 PM JOHN Galvan Am y S, MINING PLANT OPERATOR documented in this encounter Plan of Treatment Not on file documented as of this encounter Goals Goal Patient Goal Type Associated Problems Recent Progress Patient-Stated? Author Blood Pressure < 140/90 Blood Pressure 134/86(2022 2:25 PM CDT) No Leonard Jasso APRN documented as of this encounter Procedures Procedure Name Priority Date/Time Associated Diagnosis Comments TISSUE EXAM Routine 08/29/2021 documented in this encounter Results * Tissue Exam (08/29/2021) Tissue us Carson Wolff MD PATHOLOGY/CYTOLOGY ORDERA SHARONDA Final Result [facility] Charlo at [address] [place] [address] documented in this encounter Visit Diagnoses Not on filedocumented in this encounter Additional Health Concerns Assessment Noted Time A fall risk assessment has been complete d for the patient 08/27/2021 11:36 AM CDT A Body Mass Index follow-up plan has been documented for the patient 06/30/2021 12:12 PM CDT documented as of this encounter Care Teams Gear Lapping Machine Operator Relationship Specialty Start Date End Date Michell Trevizo MD [facility] [place] [address] PCP - General Internal Medicine 05/29/21 02/25/22 Lacey Perdue MD [address] [place] [phone] Referring Physician Infectious Diseases 06/28/18 documented as of this encounter
--- OUTSIDE RECORDS SUMMARY | 2024-11-23 00:25 | XMS_ITS | Encounter Summary ---
Author Organization [employer] Address [address] [place] [address] Care Team Providers Care District Branch Manager Name Role Phone Lacey Perdue MD Unavailable [phone] Michell Trevizo MD Primary Care Provider [phone] Reason for Visit * Reason Onset Date Comments Results 10/21/2021 Encounter Details Date Type Department Care Team (Late st Contact Info) Description 10/21/2021 Telephone [facility] ENT [address] [place] [address] Eve Ward, LEARNING DISABILITIES TEACHER [address] [place] [address] Results Social History Tobacco Use Types Packs/Day Years [...] COVID-19? No / Unsure 10/14/2021 8:23 AM MEDICAL RESEARCHER documented as of this encounter Functional Status * Are you deaf or do you have serious difficulty hearing? Answer Date of Assessment Author No 10/25/2017 2:00 PM MEDICAL RESEARCHER Cole Am y S, MECHANICAL ADJUSTER * Are you blind or do you have serious difficulty seeing, even when wearing glasses? Answer Date of Assessment Author No 10/25/2017 2:00 PM MEDICAL RESEARCHER Galvan, Am y S, MECHANICAL ADJUSTER * Do you have serious difficulty walking or climbing stairs? (5 years old or older) Answer Date of Assessment Author No 10/25/2017 2:00 PM MEDICAL RESEARCHER Cole Am y S, MECHANICAL ADJUSTER * Do you have difficulty dressing or bathing? (5 years old or older) Answer Date of Assessment Author No 10/25/2017 2:00 PM MEDICAL RESEARCHER Cole Am y S, MECHANICAL ADJUSTER * Because of a physical, mental, or emotional condition, do you have difficulty doing errands alone such as visiting a doctor's office or shopping? (15 years old or older) Answer Date of Assessment Author No 10/25/2017 2:00 PM MEDICAL RESEARCHER Cole Am y S, MECHANICAL ADJUSTER documented as of this encounter Mental Status * Because of a physical, mental, or emotional condition, do you have serious difficulty concentrating, remembering, or making decisions? (5 years old or older) Answer Entry Date Author No 10/25/2017 2:00 PM MEDICAL RESEARCHER Deonna Galvan y S, MECHANICAL ADJUSTER documented in this encounter Miscellaneous Notes * Telephone Encounter - Eve Ward LPN - 10/21/2021 4:29 PM CST Bactrim sent to pharmacy per melecio Kapoor CAL RESEARCHER documented in this encounter Plan of Treatment [...] documented as of this encounter Care Teams District Branch Manager Relationship Specialty Start Date End Date Michell Trevizo MD [address] [place] [address] PCP - General Internal Medicine 05/29/21 02/25/22 Lacey Perdue MD [address] [place] [phone] Referring Physician Infectious Diseases 06/28/18 documented as of this encounter
--- OUTSIDE RECORDS SUMMARY | 2024-11-23 00:25 | XMS_ITS | Encounter Summary ---
Author Organization [employer] Address [address] [place] [address] Care Team Providers Care Auto Repair Technician Name Role Phone Lacey Perdue MD Unavailable [phone] Michell Trevizo MD Primary Care Provider [phone] Reason for Visit * Reason Comments Follow-up 2 months Encounter Details Date Type Department Care Team (Latest Contact Info) Description 12/23/2021 11:45 AM KENNEL MANAGER Office Visit [facility] Internal Medicine [address] [place] [address] Michell Trevizo MD [address] [place] [id number] Encounter for long-term current use of medication (Primary Dx); Congestion of nasal sinus; Dyspnea, unspecified type; Chronic bilateral low back pain with left-sided [...] COVID-19? No / Unsure 12/23/2021 11:28 AM KENNEL MANAGER documented as of this encounter Last Filed Vital Signs Vital Sign Reading Time Taken Comments Blood Pressure 132/78 12/23/2021 11:44 AM KENNEL MANAGER Pulse 84 12/23/2021 11:44 AM KENNEL MANAGER Temperature - - Respiratory Rate - - Oxygen Saturation - - Inhaled Oxygen Concentration - - Weight 92.5 kg (204 lb) 12/23/2021 11:44 AM KENNEL MANAGER Height - - Body Mass Index 28.45 11/19/2021 9:15 AM KENNEL MANAGER documented in this encounter Functional Status * Are you deaf or do you have serious difficulty hearing? Answer Date of Assessment Author No 10/25/2017 2:00 PM KENNEL MANAGER Deonna Galvan y S, LIFE CYCLE ASSESSMENT ANALYST * Are you blind or do you have serious difficulty seeing, even when wearing glasses? Answer Date of Assessment Author No 10/25/2017 2:00 PM KENNEL MANAGER Deonna Galvan y S, LIFE CYCLE ASSESSMENT ANALYST * Do you have serious difficulty walking or climbing stairs? (5 years old or older) Answer Date of Assessment Author No 10/25/2017 2:00 PM KENNEL MANAGER Deonna Galvan y S, LIFE CYCLE ASSESSMENT ANALYST * Do you have difficulty dressing or bathing? (5 years old or older) Answer Date of Assessment Author No 10/25/2017 2:00 PM KENNEL MANAGER Cole Am y S, LIFE CYCLE ASSESSMENT ANALYST * Because of a physical, mental, or emotional condition, do you have difficulty doing errands alone such as visiting a doctor's office or shopping? (15 years old or older) Answer Date of Assessment Author No 10/25/2017 2:00 PM KENNEL MANAGER Deonna Galvan y S, LIFE CYCLE ASSESSMENT ANALYST documented as of this encounter Mental Status * Because of a physical, mental, or emotional condition, do you have serious difficulty concentrating, remembering, or making decisions? (5 years old or older) Answer Entry Date Author No 10/25/2017 2:00 PM KENNEL MANAGER Deonna Galvan y S, LIFE CYCLE ASSESSMENT ANALYST documented in this encounter Patient Instructions * Patient Instructions* Michell Trevizo MD - 12/23/2021 11:45 AM KENNEL MANAGER Labwork today and urine 6 month follow up EL MANAGER documented in this encounter Progress Notes * Meme Chen LPN - 12/23/2021 11:45 AM CST There is no height or weight on file to calculate BMI. Se received nutritional counseling in the following manner: reassuring about nutrition Se received physical activity counseling in the following manner: reassuring about exercise EL MANAGER * Michell Trevizo MD - 12/23/2021 11:45 AM CST General Internal Medicine Patient Note [facility] CC: Chief Complaint Patient presents with ??? Follow-up 2 months History of Present Illness: Edilberto Hawley is a 66 y.o. male presenting to clinic for follow up. Trouble breathing. Had COVID. Inhaler when out of breath, usually with exertion. Coughs up some. Using Zulema Pot Had a cyst removed from nose. Mother with history of dementia, inquiring about taking viagra for dementia. ROS: Pertinent positives and negatives as mentioned in HPI Past Medical/Surgical/Family/Social History: Reviewed and updated in [facility] History tab Medications: Reviewed and updated in [facility] Medications tab Current Outpatient Medications Medication Sig Dispense Refill ??? albuterol 108 (90 Base) MCG/ACT inhaler Inhale 2 (two) puffs into the lungs every 4 (four) hours as needed for Wheezing. 1 each 1 ??? amitriptyline (ELAVIL) 150 MG tablet Take 1 (one) tablet by mouth daily. 90 tablet 3 ??? Ascorbic Acid (VITAMIN C) 500 MG tablet Take 500 mg by mouth daily. ??? aspirin 325 MG tablet Take 325 mg by mouth. ??? baclofen (LIORESAL) 10 MG tablet TAKE ONE TABLET BY MOUTH THREE TIMES A DAY IF NEEDED FOR MUSCLE SPASMS 90 tablet 0 ??? diclofenac sodium (VOLTAREN) 50 MG EC tablet Take 1 tablet by mouth 2 (two) times daily. 60 tablet 5 ??? docusate sodium (COLACE) 100 MG capsule TAKE ONE CAPSULE BY MOUTH TWICE A DAY NEEDED FOR CONSTIPATION--TAKE WHILE ON NARCOTIC PAIN MEDICATIONS 30 capsule 0 ??? Multiple Vitamins-Minerals (ONE DAILY MULTIVITAMIN ADULT PO) Take by mouth. ??? NARCAN 4 MG/0.1ML LIQD nasal liquid USE DIRECTED. 2 each 1 ??? omeprazole 20 MG tablet Take 2 tablets by mouth every morning before breakfast. 60 tablet 5 ??? oxyCODONE-acetaminophen (PERCOCET) 10-325 MG per tablet TAKE ONE TABLET EVERY SIX HOURS IF NEEDED FOR PAIN. 120 tablet 0 ??? Probiotic Product (SOLUBLE [...] and updated in Epic Allergies tab BP 132/78 Pulse 84 Wt 92.5 kg (204 lb) BMI 28.45 kg/m?? Physical Exam Constitutional: Well-nourished, and in no distress. Head: Normocephalic and atraumatic. Eyes: Pupils are equal, round, and reactive Neck: Normal range of motion. Neck supple. Cardiovascular: Normal rate, regular rhythm and normal heart sounds. Pulmonary/Chest: Effort normal and breath sounds normal. Abdominal: Soft. There is no abdominal tenderness. Musculoskeletal: Normal range of motion. Neurological: CN grossly intact. Skin: Skin is warm and dry. Psychiatric: Affect normal. Labs/Imaging: Reviewed Assessment & Plan Diagnosis: 1. Encounter for long-term current use of medication 2. Congestion of nasal sinus 3. Dyspnea, unspecified type 4. Chronic bilateral low back pain with left-sided sciatica 5. Spinal stenosis, unspecified spinal region 6. Hyperlipidemia, unspecified hyperlipidemia type 7. COVID-19 8. Elevated liver enzymes 9. Hepatomegaly Medications provided Orders Placed This Encounter Medications ??? amitriptyline (ELAVIL) 150 MG tablet Sig: Take 1 (one) tablet by mouth daily. Dispense: 90 tablet Refill: 3 No refills available Additional Orders: Orders Placed This Encounter Procedures ??? Comprehensive metabolic panel ??? CBC auto differential ??? Lipid panel ??? TSH ??? Pain Management Profile 1 With Confirm, With D/L, Urine I spent a total of 30 minutes on 12/23/2021 reviewing the record, performing a face to face visit, preparing, discussing the treatment, and creating documentation of the encounter. This time was separate from that spent performing other billable services. Return to clinic in 6 months This note was created with voice recognition software. There may be mistakes in grammar, syntax or spelling. Every effort is made to make sure the factual data is accurate. Please refer to other parts of the encounter to verify dictation. Michell Trevizo MD Internal Medicine Sleep Medicine Obesity Medicine EL MANAGER documented in this encounter Plan of Treatment Not on file documented as of this encounter Goals Goal Patient Goal Type Associated Problems Recent Progress Patient-Stated? Author Blood Pressure < 140/90 Blood Pressure 134/86(2022 2:25 PM CDT) No Leonard Jasso APRN documented as of this encounter Results * (ABNORMAL) Pain Management Profile 1 With Confirm, With D/L, Urine (12/23/2021 1:07 PM KENNEL MANAGER) [facility] medMATCH Summary SEE NOTE [facility] Comment: ?Prescribed ?Prescribed ?Not Prescribed ?Consistent ?Inconsistent ?Inconsistent ?Oxycodone ? [OK] Prescribed Drug 1 Oxycodone [facility] Comment: [[place]] Testing performed at: [facility], [address], [place], [address], High School Vice Principal: Osvaldo Rios D.O., MPH Amphetamines NEGATIVE <500 ng/mL [facility] Comment:[CB] Barbiturates NEGATIVE <300 ng/mL [facility] Comment:[CB] Benzodiazepines NEGATIVE <100 ng/mL [facility] Comment:[CB] Cocaine Metabolite NEGATIVE <150 ng/mL [facility] Comment:[CB] Marijuana Metabolite NEGATIVE <20 ng/mL [facility] Comment:[CB] Methadone NEGATIVE <100 ng/mL [facility] Comment:[CB] Opiates NEGATIVE CONFIRMED <100 ng/mL [facility] Comment:[CB] Codeine NEGATIVE <50 ng/mL [facility] Comment:[CB] Hydrocodone NEGATIVE <50 ng/mL [facility] Comment:[CB] Hydromorphone NEGATIVE <50 ng/mL [facility] Comment:[CB] Morphine UR NEGATIVE <50 ng/mL [facility] Comment:[CB] Norhydrocodone NEGATIVE <50 ng/mL [facility] Comment:[CB] Opiates Comments SEE NOTE [facility] Comment: See LDT Notes [CB] Oxycodone POSITIVE(A) <100 ng/mL [facility] Comment:[CB] Noroxycodone, UR >07164(H) <50 ng/mL [facility] Comment:[CB] MEDMATCH NOROXYCODONE [facility] Comment:[CB] Oxycodone >03237(H) <50 ng/mL [facility] Comment:[CB] medMATCH Oxycodone CONSISTENT [facility] Comment:[CB] Oxymorphone >30649(H) <50 ng/mL [facility] Comment:[CB] medMATCH Oxymorphone [facility] Comment:[CB] Oxycodone Comments SEE NOTE Q [facility] Comment: See Oxycodone Notes, LDT Notes [CB] Phencyclidine NEGATIVE <25 ng/mL [facility] Comment:[CB] Creatinine Urine >300.0 > or = 20.0 mg/dL [facility] Comment:[CB] pH 5.9 4.5 - 9.0 [facility] Comment:[CB] Oxidant NEGATIVE <200 mcg/mL [facility] Comment:[CB] Comments: SEE NOTE [facility] Comment: This drug testing is for [...] analytical performance characteristics have been determined by [employer]. It has not been cleared or approved by the FDA. This assay has been validated pursuant to the CLIA regulations and is used for clinical purposes. medSimplyTappTCH(R) enables providers to identify if drug use is consistent or inconsistent with a corresponding prescribed medication(s) list. Healthcare Providers needing Interpretation assistance, please contact us at [phone] ( ) M-F, 8am to 10pm EST [[place]] Urine 12/23/2021 1:07 PM KENNEL MANAGER 12/24/2021 3:36 AM KENNEL MANAGER Narrative [facility] - 12/28/2021 2:40 PM KENNEL MANAGER Testing performed at: [place], [facility], [id number] [place] [address], [phone], [employer] Vice Principal: Osvaldo Rios D.O., MPH us Michell Trevizo MD URINE ORDERABLES Final Result [facility] [address] [phone] * TSH (12/23/2021 12:55 PM KENNEL MANAGER) TSH 1.541 0.350 - 4.940 uIU/mL [facility] Blood BLOOD SPECIMEN / Unknown 12/23/2021 12:55 PM KENNEL MANAGER 12/23/2021 1:07 PM KENNEL MANAGER Comment:- Narrative [facility] - 12/24/2021 8:37 AM KENNEL MANAGER Testing performed at [facility], [address] [place] [address]. CLIA [id number] Phone [phone] Ext [phone] ??High [employer] Vice Principal Shant Rivas MD us Michell Trevizo MD LAB BLOOD ORDERABLES Edited Re sult - Final [facility] [address] [place] [address], [facility] [phone] * (ABNORMAL) Lipid panel (12/23/2021 12:55 PM KENNEL MANAGER) Cholesterol 169 0 - 200 mg/dL [facility] Comment:Cholesterol preferre d <200 mg/dL. Clinical correlation is essential. Triglycerides 163 0 - 200 mg/dL [facility] HDL Cholesterol 37(L) >60 mg/dL [facility] Comment:Low HDL cholesterol, (Major Risk Factor for CHD) LDL, Calculated 99.4 mg/dL [facility] Comment: <100 ?Optimal 100-129 ? Near Optimal/Above Optimal 130-159 ? Borderline High 160-189 ? High >or =190 ?Very High Cholesterol/HDL Ratio 4.6 [facility] Comment:HDL:Chol ratio [place] ge Risk 1:4.4-1:7.0, Clinical Correlation essential. Blood 12/23/2021 12:5 5 PM KENNEL MANAGER 12/23/2021 1:07 PM KENNEL MANAGER Comment:- Narrative [facility] - 12/24/2021 8:37 AM KENNEL MANAGER Testing performed at [facility], [address] [place] [address]. CLIA [id number] Phone [phone] Ext [phone] ??[employer] Vice Principal Shant Rivas MD us Michell Trevizo MD LAB BLOOD ORDERABLES Edited Re sult - Final [facility] [address] [place] [address], [facility] [phone] * CBC auto differential (12/23/2021 12:55 PM KENNEL MANAGER) WBC 5.9 3.1 - 11.0 x10^3/uL [facility] RBC 5.06 4.29 - 5.55 x10^6/uL [facility] HGB 16.1 13.4 - 16.9 g/dL [facility] HCT 46.7 38.0 - 50.0 % [facility] MCV 92.3 82.0 - 98.0 fL [facility] MCH 31.8 27.2 - 33.3 pg [facility] MCHC 34.5 32.0 - 36.0 g/dL [facility] RDW-CV 12.1 11.4 - 14.2 % [facility] SD-RDW 41.4 36.0 - 47.0 fL [facility] Platelets 201 147 - 370 x10^3/uL [facility] MPV 10.4 9.1 - 12.1 fL [facility] NE% 49.9 42.0 - 76.0 % [facility] %LYMPH 35.1 13.5 - 48.0 % [facility] %MONO 10.7 3.5 - 14.0 % [facility] % Eosinophils 3.6 0.0 - 7.0 % [facility] % Basophils 0.5 0.0 - 1.5 % [facility] Imm Gran Relative 0.2 0.0 - 1.0 % [facility] NE# 3.0 1.2 - 7.3 x10^3/uL [facility] Lymphs # 2.1 0.7 - 3.5 x10^3/uL [facility] [place]# 0.6 0.2 - 0.9 x10^3/uL [facility] Eosinophil # 0.2 0.0 - 0.5 x10^3/uL [facility] Baso# 0.0 0.0 - 0.1 x10^3/uL [facility] Imm Gran Absolute 0.01 0.00 - 0.10 x10^3/uL [facility] NRBC % 0.00 0.00 - 0.10 /100 WBC [facility] Blood 12/23/2021 12:5 5 PM KENNEL MANAGER 12/23/2021 1:07 PM KENNEL MANAGER Comment:- Narrative [facility] - 12/23/2021 1:27 PM KENNEL MANAGER Testing performed at [facility], [address] [place] [address]. CLIA [id number] Phone [phone] Ext [phone] ??High [employer] Vice Principal Shant Rivas MD us Michell Trevizo MD LAB BLOOD ORDERABLES Final Res ult [facility] [address] [place] [address] [phone] * (ABNORMAL) Comprehensive metabolic panel (12/23/2021 12:55 PM KENNEL MANAGER) Glucose 161(H) 60 - 100 mg/dL [facility] Comment: Fasting Plasma Glucose (FPG) ?<100 MG/DL Impaired Fasting Glucose (IFG) ? 100-125 MG/DL Provisional Diagnosis of Diabetes Mellitus ?? > or = 126 MG/DL (Diagnosis Must Be Confirmed) BUN 15 8 - 26 mg/dL [facility] Creatinine 0.85 0.70 - 1.40 mg/dL [facility] Glomerular Filtration Rate Estimate 95 >80 mL/min/1.7 3m2 [facility] Calcium 8.8 8.4 - 10.2 mg/dL [facility] Sodium 135(L) 136 - 145 mmol/L [facility] Potassium 4.4 3.4 - 4.9 mmol/L [facility] Chloride 106 99 - 111 mmol/L [facility] CO2 24.8 21.0 - 32.0 mmol/L [facility] Albumin 3.8 3.5 - 5.0 g/dL [facility] Total Protein 7.5 6.1 - 8.0 g/dL [facility] Bilirubin Total 0.6 0.2 - 1.2 mg/dL [facility] Alkaline Phosphatase 77 40 - 150 U/L [facility] AST 75(H) 5 - 34 U/L [facility] ALT 99(H) 0 - 55 u/L [facility] Blood 12/23/2021 12:5 5 PM KENNEL MANAGER 12/23/2021 1:07 PM KENNEL MANAGER Comment:- Narrative [facility] - 12/24/2021 8:37 AM KENNEL MANAGER Testing performed at [facility], [address] [place] [address]. CLIA [id number] Phone [phone] Ext [phone] ??High School Vice Principal Shant Rivas MD Michell Trevizo MD LAB BLOOD ORDERABLES Edited Re sult - Final [facility] [address] [place] [address] [phone] documented in this encounter Visit Diagnoses Diagnosis Encounter for long-term current use of medication- Primary Congestion of nasal sinus Other diseases of nasal cavity and sinuses Dyspnea, unspecified type Chronic bilateral low back pain with left-sided sciatica Spinal stenosis, unspecified spinal region Hyperlipidemia, unspecified hyperlipidemia type COVID-19 Elevated liver enzymes Nonspecific elevation of levels of transaminase or lactic acid dehydrogenase (LDH) Hepatomegaly documented in this encounter Additional Health Concerns Assessment Noted Time A fall risk assessment has been complete d for the patient 08/27/2021 11:36 AM CDT A Body Mass Index follow-up plan has been documented for the patient 12/23/2021 12:30 PM KENNEL MANAGER documented as of this encounter Care Teams Auto Repair Technician Relationship Specialty Start Date End Date Michell Trevizo MD [address] [place] [address] PCP - General Internal Medicine 05/29/21 02/25/22 Lacey Perdue MD [address] [address] Referring Physician Infectious Diseases 06/28/18 documented as of this encounter
--- OUTSIDE RECORDS SUMMARY | 2024-11-23 00:25 | XMS_ITS | Encounter Summary ---
Author Organization [employer] Address [address] [place] [address] Care Team Providers Care Real Estate Economist Name Role Phone Lacey Perdue MD Unavailable [phone] Michell Trevizo MD Primary Care Provider [phone] Encounter Details Date Type Department Care Team (Latest Contact Info) Description 08/25/2021 Transcribe Orders [facility] [address] [place] [address] Eve Ward, [employer] DEAN [address] [place] [address] Pre-operative exam (Primary Dx) Social History Tobacco Use Types [...] No 10/25/2017 2:00 PM Deonna Padilla S, TURBINE SUBASSEMBLER * Are you blind or do you have serious difficulty seeing, even when wearing glasses? Answer Date of Assessment Author No 10/25/2017 2:00 PM JOHN Galvan Am y S, TURBINE SUBASSEMBLER * Do you have serious difficulty walking or climbing stairs? (5 years old or older) Answer Date of Assessment Author No 10/25/2017 2:00 PM Deonna Padilla S, TURBINE SUBASSEMBLER * Do you have difficulty dressing or bathing? (5 years old or older) Answer Date of Assessment Author No 10/25/2017 2:00 PM Deonna Padilla S, TURBINE SUBASSEMBLER * Because of a physical, mental, or emotional condition, do you have difficulty doing errands alone such as visiting a doctor's office or shopping? (15 years old or older) Answer Date of Assessment Author No 10/25/2017 2:00 PM Deonna Padilla S, TURBINE SUBASSEMBLER documented as of this encounter Mental Status * Because of a physical, mental, or emotional condition, do you have serious difficulty concentrating, remembering, or making decisions? (5 years old or older) Answer Entry Date Author No 10/25/2017 2:00 PM Deonna Padilla, TURBINE SUBASSEMBLER documented in this encounter Plan of Treatment Not on file documented as of this encounter Goals Goal Patient Goal Type Associated Problems Recent Progress Patient-Stated? Author Blood Pressure < 140/90 Blood Pressure 134/86(2022 2:25 PM CDT) No Leonard Jasso APRN documented as of this encounter Results * EKG 12-lead (08/27/2021 11:30 AM CDT) 08/27/2021 11:3 0 AM CDT [facility] - 08/27/2021 10:50 AM CDT Vent Rate: 66 bpm RR Interval: 902 msec [place] Interval: 199 msec QRS Duration: 98 msec QT Interval: 377 msec QTC Interval: 391 msec P-R-T [place]: 49 - -41 - 53 degrees IMPRESSION: SINUS RHYTHM CONSIDER LEFT ATRIAL ABNORMALITY LEFT AXIS DEVIATION [QRS AXIS < -30] BORDERLINE EKG Electronically Signed By: Sohan Andrade Procedure Note Sohan Andrade MD - 08/27/2021 Vent Rate: 66 bpm RR Interval: 902 msec OH Interval: 199 msec QRS Duration: 98 msec QT Interval: 377 msec QTC Interval: 391 msec P-R-T [place]: 49 - -41 - 53 degrees IMPRESSION: SINUS RHYTHM CONSIDER LEFT ATRIAL ABNORMALITY LEFT AXIS DEVIATION [QRS AXIS < -30] BORDERLINE EKG Electronically Signed By: Sohan Andrade us Carson Wolff MD ECG ORDERABLES Final Res ult [facility] * PT/PTT (08/27/2021 10:33 AM CDT) Protime 10.4 9.1 - 12.4 Sec [facility] INR 1.0 [facility] Comment: CLINICAL CORRELATION IS ESSENTIAL: Prophylaxis/treatment/prevention of venous thrombosis/embolism ?INR 2.0 - 3.0 Mechanical prosthetic valves/recurrent systemic embolism ?INR 2.5 - 3.5 PTT 25.2 22.2 - 34.7 Sec [facility] Blood BLOOD SPECIMEN / Unknown 08/27/2021 10:33 AM CDT 08/27/2021 10:38 AM CDT Comment:- Narrative [facility] - 08/27/2021 11:12 AM CDT Testing performed at [facility], [address] [place] [address]. CLIA [id number] Phone [phone] Ext [phone] ??Biophysics Teacher Shant Rivas MD us Carson Wolff MD LAB BLOOD ORDERABLES Veronica l Result [facility] [address] [place] [address] [phone] * CBC auto differential (08/27/2021 10:33 AM CDT) WBC 7.2 3.1 - 11.0 x10^3/uL [facility] RBC 4.91 4.29 - 5.55 x10^6/uL [facility] HGB 15.7 13.4 - 16.9 g/dL [facility] HCT 46.3 38.0 - 50.0 % [facility] MCV 94.3 82.0 - 98.0 fL [facility] MCH 32.0 27.2 - 33.3 pg [facility] MCHC 33.9 32.0 - 36.0 g/dL [facility] RDW-CV 11.7 11.4 - 14.2 % [facility] SD-RDW 40.3 36.0 - 47.0 fL [facility] Platelets 174 147 - 370 x10^3/uL [facility] MPV 9.9 9.1 - 12.1 fL [facility] NE% 59.6 42.0 - 76.0 % [facility] %LYMPH 26.4 13.5 - 48.0 % [facility] %MONO 10.5 3.5 - 14.0 % [facility] % Eosinophils 2.8 0.0 - 7.0 % [facility] % Basophils 0.4 0.0 - 1.5 % [facility] Imm Gran Relative 0.3 0.0 - 1.0 % [facility] NE# 4.3 1.2 - 7.3 x10^3/uL [facility] Lymphs # 1.9 0.7 - 3.5 x10^3/uL [facility] Amite# 0.8 0.2 - 0.9 x10^3/uL [facility] Eosinophil # 0.2 0.0 - 0.5 x10^3/uL [facility] Baso# 0.0 0.0 - 0.1 x10^3/uL [facility] Imm Gran Absolute 0.02 0.00 - 0.10 x10^3/uL [facility] NRBC % 0.00 0.00 - 0.10 /100 WBC [facility] Blood 08/27/2021 10:3 3 AM CDT 08/27/2021 10:38 AM CDT Comment:- Narrative [facility] - 08/27/2021 10:41 AM CDT Testing performed at [facility], [address] [place] [address]. CLIA [id number] Phone [phone] Ext [phone] ??Biophysics Teacher Shant Rivas MD us Carson Wolff MD LAB BLOOD ORDERABLES Veronica l Result [facility] [address] [place] [address], [facility] [phone] documented in this encounter Visit Diagnoses Diagnosis Pre-operative exam- Primary Preoperative examination, unspecified Pre-operative exam Preoperative examination, unspecified documented in this encounter Additional Health Concerns Assessment Noted Time A fall risk assessment has been complete d for the patient 04/16/2021 8:08 AM CDT A Body Mass Index follow-up plan has been documented for the patient 06/30/2021 12:12 PM CDT documented as of this encounter Care Teams Real Estate Economist Relationship Specialty Start Date End Date Michell Trevizo MD [address] [place] [address] PCP - General Internal Medicine 05/29/21 02/25/22 Lacey Perdue MD [facility] [address] Referring Physician Infectious Diseases 06/28/18 documented as of this encounter
--- OUTSIDE RECORDS SUMMARY | 2024-11-23 00:25 | XMS_ITS | Encounter Summary ---
Author Organization [employer] Address [address] [place] [address] Care Team Providers Care Bull Rider Name Role Phone Lacey Perdue MD Unavailable [phone] Michell Trevizo MD Primary Care Provider [phone] Reason for Visit * Reason Comments Abnormal Lab * Diagnostic Radiology (Routine) - Closed Specialty Diagnoses / Procedures Referred By Contjessica t Referred To Contact Radiology Diagnoses Elevated liver enzymes Procedures US Abdomen Ltd Michell Trevizo MD [address] [place] [address] Phone: tel: fax: Referral ID Status Reason Start Date Expiration Date Visits Re quested Visits Authorized [id number] Closed 06/30/2021 01/01/2023 1 1 Encounter Details Date Type Department Care Team (Latest Contact Info) Description 07/15/2021 8:00 AM CDT Clinical Support [facility] [address] [place] [address] Michell Trevizo MD [address] [place] [address] Sachi Mir RDMS [address] [place] [address] Elevated liver enzymes Social History Tobacco Use Types Packs/Day Years Used Date Smoking Tobacco: Never Smokeless Tobacco: Never Alcohol Use Standard Drinks/Week Comments No 0 (1 standard drink = 0.6 oz pur e alcohol) PHQ-2 Answer Date Recorded PHQ-2 Total Score (RETIRED) 0 0 12/2020 Sex and Gender Information Value [...] Assessment Author No 10/25/2017 2:00 PM Deonna Padilal ARNP * Because of a physical, mental, [...] Priority Date/Time Associated Diagnosis Comments US ABDOMEN LTD Routine 07/15/2021 7:50 AM CDT Elevated liver enzymes documented in this encounter Results * US Abdomen Ltd (07/15/2021 7:50 AM CDT) Anatomical Region Laterality Modality Ultrasound 07/15/2021 7:50 AM CDT Narrative 07/15/2021 8:34 AM CDT [address] ??[address] DIAGNOSTIC IMAGING Name: EDILBERTO DURAND ??Ordering Phys: MICHELL TREVIZO Date of : 1955 ?Gender: Bon ??Accession Number: [id number] EXAM DESCRIPTION: US ABDOMEN LIMITED REASON FOR [...] Procedure Note Kerwin Malik MD - 07/15/[address] [address] DIAGNOSTIC IMAGING Name: EDILBERTO DURAND Ordering Phys: TREVIZO, IMRAN M Date of : 1955 Gender: M Accession Number: [id number] EXAM DESCRIPTION: US ABDOMEN LIMITED REASON FOR [...] by Kerwin Malik M.D. Michell Trevizo MD IMG US ORDERABLES Final Result documented in this encounter Visit Diagnoses Diagnosis Elevated liver enzymes Nonspecific elevation of levels of transaminase or lactic acid dehydrogenase (LDH) documented in this encounter Additional Health Concerns Assessment Noted Time A fall risk assessment has been complete d for the patient 04/16/2021 8:08 AM CDT A Body Mass Index follow-up plan has been documented for the patient 06/30/2021 12:12 PM CDT documented as of this encounter Care Teams Bull Rider Relationship Specialty Start Date End Date Michell Trevizo MD [address] [place] [address] PCP - General Internal Medicine 05/29/21 02/25/22 Lacey Perdue MD [facility] [address] Referring Physician Infectious Diseases 06/28/18 documented as of this encounter
--- OUTSIDE RECORDS SUMMARY | 2024-11-23 00:25 | XMS_ITS | Encounter Summary ---
Author Organization [facility] Address [address] [place] [address] Care Team Providers Care Tableau Analyst Name Role Phone Lacey Perdue MD Unavailable [phone] Michell Trevizo MD Primary Care Provider [phone] Encounter Details Date Type Department Care Team (Late st Contact Info) Description 08/28/2021 11:55 AM CDT Lab [facility] [address] [place] [address] Nasal obstruction; Deviated nasal septum; Hypertrophy of both inferior nasal turbinates; Chronic maxillary sinusitis; Chronic ethmoidal sinusitis; Chronic sphenoidal sinusitis; Sensorineural hearing loss (SNHL) of both ears; Pre-operative exam Social History Tobacco Use Types [...] Author No 10/25/2017 2:00 PM Deonna Padilla, COPIER OPERATOR * Are you blind or do you have serious difficulty seeing, even when wearing glasses? Answer Date of Assessment Author No 10/25/2017 2:00 PM Deonna Padilla S, COPIER OPERATOR * Do you have serious difficulty walking or climbing stairs? (5 years old or older) Answer Date of Assessment Author No 10/25/2017 2:00 PM Deonna Padilla S, COPIER OPERATOR * Do you have difficulty dressing or bathing? (5 years old or older) Answer Date of Assessment Author No 10/25/2017 2:00 PM Deonna Padilla, COPIER OPERATOR * Because of a physical, mental, or emotional condition, do you have difficulty doing errands alone such as visiting a doctor's office or shopping? (15 years old or older) Answer Date of Assessment Author No 10/25/2017 2:00 PM Deonna Padilla, COPIER OPERATOR documented as of this encounter Mental Status * Because of a physical, mental, or emotional condition, do you have serious difficulty concentrating, remembering, or making decisions? (5 years old or older) Answer Entry Date Author No 10/25/2017 2:00 PM Deonna Padilla, COPIER OPERATOR documented in this encounter Progress Notes * Anna Vaughn LPN - 08/28/2021 11:55 AM CDT Patient presenting for a pre-op COVID test. Pt is asymptomatic. Specimen received from the bilateral nares. Pt tolerated procedure well. Patient symptoms: Fever :No Cough: No Shortness of breath:No Loss of taste:No Loss of smell:No Chills:No Body aches:No Charge: G2023 Patient swabbed by Anna Vaughn LPN documented in this encounter Plan of Treatment Not on file documented as of this encounter Goals Goal Patient Goal Type Associated Problems Recent Progress Patient-Stated? Author Blood Pressure < 140/90 Blood Pressure 134/86(04/20/ 2023 2:25 PM CDT) No Leonard Jasso, ANGIE documented as of this encounter Procedures Procedure Name Priority Date/Time Associated Diagnosis Comments CORONAVIRUS SARS-COV-2 Routine 08/28/2021 2:08 PM CDT Nasal obstruction Deviated nasal septum Hypertrophy of both inferior nasal turbinates Chronic maxillary sinusitis Chronic ethmoidal sinusitis Chronic sphenoidal sinusitis Sensorineural hearing loss (SNHL) of both ears Pre-operative exam documented in this encounter Results * Coronavirus SARS-CoV-2 (08/28/2021 2:08 PM CDT) SARS-CoV-2 PCR NEGATIVE Negative [facility] Comment:The 2019 novel coron avirus (Sars-CoV-2) target nucleic acids are not detected. NASOPHARYNGEAL SWAB / Unknown 08/28/2021 2:08 PM CDT 08/28/2021 2:14 PM CDT Comment:- Narrative [facility] - 08/28/2021 4:12 PM CDT Surgeon Name: [place] Date and time of Surgery: 07/16/21 Surgery Location: [address] [place] [address] Evaluate patient for COVID symptoms and acquire sample. Priority 1: Pre-procedure Indication Reason:->Screening Pre-Procedure Testing is performed by the [employer] GeneXpert real-time, reverse car painter polymerase chain reaction (RT-PCR) assay. Testing with [...] available to the physician. Testing performed at [facility], [address] [place] [address]. CLIA [id number] Phone [phone] Ext [phone] ??Orchard Manager Shant Rivas MD Carson Wolff MD MICROBIOLOGY - GENERAL OR DERABLES Final Result [facility] [address] [phone] documented in this encounter Visit Diagnoses Diagnosis Nasal obstruction Other diseases of nasal cavity and sinuses Deviated nasal septum Hypertrophy of both inferior nasal turbinates Hypertrophy of nasal turbinates Chronic maxillary sinusitis Chronic ethmoidal sinusitis Chronic sphenoidal sinusitis Sensorineural hearing loss (SNHL) of both ears Pre-operative exam Preoperative examination, unspecified documented in this encounter Additional Health Concerns Assessment Noted Time A fall risk assessment has been complete d for the patient 08/27/2021 11:36 AM CDT A Body Mass Index follow-up plan has been documented for the patient 06/30/2021 12:12 PM CDT documented as of this encounter Care Teams Tableau Analyst Relationship Specialty Start Date End Date Michell Trevizo MD [facility] [place] [address] PCP - General Internal Medicine 05/29/21 02/25/22 Lacey Perdue MD [address] [address] Referring Physician Infectious Diseases 06/28/18 documented as of this encounter
--- OUTSIDE RECORDS SUMMARY | 2024-11-23 00:25 | XMS_ITS | Encounter Summary ---
Author Organization [facility] Address [address] [place] [address] Care Team Providers Care Safety Grooving Machine Operator Name Role Phone Lacey Perdue MD Unavailable [phone] Michell Trevizo MD Primary Care Provider Reason for Referral * Allergy Testing (Routine) - Closed Specialty Diagnoses / Procedures Referred By Contac t Referred To Contact Allergy Diagnoses Recurrent sinusitis Chronic maxillary sinusitis S/P sinus surgery Carson Wolff MD [address] [place] [phone] Phone: tel: fax: Referral ID Status Reason Start Date Expiration Date V isits Requested Visits Authorized [id number] Closed Specialty Services Required 10/14/2021 04/17/2023 1 1 ORT OPERATIONS DUTY MANAGER Reason for Visit * Reason Comments Sinus Problem Encounter Details Date Type Department Care Team (Late st Contact Info) Description 10/14/2021 10:30 AM AIRPORT OPERATIONS DUTY MANAGER Office Visit [facility] [address] [place] [phone] Carson Wolff MD [address] [place] [phone] Chronic maxillary sinusitis (Primary Dx); Recurrent sinusitis; S/P sinus surgery; S/P nasal septoplasty; History of nasal septoplasty Social History Tobacco [...] COVID-19? No / Unsure 10/14/2021 8:23 AM AIRPORT OPERATIONS DUTY MANAGER documented as of this encounter Functional Status * Are you deaf or do you have serious difficulty hearing? Answer Date of Assessment Author No 10/25/2017 2:00 PM AIRPORT OPERATIONS DUTY MANAGER Deonna Galvan, FOOD CLERK * Are you blind or do you have serious difficulty seeing, even when wearing glasses? Answer Date of Assessment Author No 10/25/2017 2:00 PM Deonna Padilla, FOOD CLERK * Do you have serious difficulty walking or climbing stairs? (5 years old or older) Answer Date of Assessment Author No 10/25/2017 2:00 PM Deonna Padilla, FOOD CLERK * Do you have difficulty dressing or bathing? (5 years old or older) Answer Date of Assessment Author No 10/25/2017 2:00 PM Deonna Padilla, FOOD CLERK * Because of a physical, mental, or emotional condition, do you have difficulty doing errands alone such as visiting a doctor's office or shopping? (15 years old or older) Answer Date of Assessment Author No 10/25/2017 2:00 PM Deonna Padilla, FOOD CLERK documented as of this encounter Mental Status * Because of a physical, mental, or emotional condition, do you have serious difficulty concentrating, remembering, or making decisions? (5 years old or older) Answer Entry Date Author No 10/25/2017 2:00 PM Deonna Padilla ARNP documented in this encounter Progress Notes * Carson Wolff MD - 10/14/2021 10:30 AM CST Subjective: Edilberto Hawley is a 66 y.o. male who is s/p septoplasty, bilateral ITR, endoscopic sinus surgery (bilateral maxillary antrostomy, partial ethmoidectomy, balloon sphenoidotomy, Propel implant placement) on 08/29/2021. Crowell splints were removed in clinic on 09/04/2021. He returns today for follow up. HPI: Se, reports not doing well today. Feels really congested. S/S of sinus infection. Reports he takes his percocet for pain. Needs it order to be able to work. Right side clogges up and affects his eye (feels full/swollen). At night he feels drainage stuck in throat. Hx of substance use- cocaine use. Quit [...] of left rotator cuff ??? Hyperlipidemia ??? 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 Osteoarthritis [...] is healing but significant mucosal edema bilaterally Propel implants no longer present Left maxillary sinus open, mucous retention cyst within the sinus; thick mucus drainage from left maxillary sinus. Right maxillary sinus open; mucous retention cyst within sinus; thick mucus drainage Culture swabs obtained bilaterally Flexible nasal endoscopy: Verbal consent was obtained. [...] and all orders for this visit: Chronic maxillary sinusitis - mupirocin (BACTROBAN) 2 % ointment; Apply topically 2 (two) times daily for 14 days. Apply to affected area. Apply to internal nose twice a day. - Amb Ref to Allergy - Other Source Culture; Future - Other Source Culture; Future Recurrent sinusitis - mupirocin (BACTROBAN) 2 % ointment; Apply topically 2 (two) times daily for 14 days. Apply to affected area. Apply to internal nose twice a day. - Amb Ref to Allergy - Other Source Culture; Future - Other Source Culture; Future S/P sinus surgery - mupirocin (BACTROBAN) 2 % ointment; Apply topically 2 (two) times daily for 14 days. Apply to affected area. Apply to internal nose twice a day. - Amb Ref to Allergy - Other Source Culture; Future - Other Source Culture; Future S/P nasal septoplasty History of nasal septoplasty Edilberto Hawley is a 66 y.o. male who is s/p septoplasty, bilateral ITR, endoscopic sinus surgery (bilateral maxillary antrostomy, partial ethmoidectomy, balloon sphenoidotomy, Propel implant placement) on 08/29/2021. Sinus infection symptoms today. Drainage from maxillary sinuses cultured. 1. Chronic maxillary sinusitis mupirocin (BACTROBAN) 2 % ointment Amb Ref to Allergy Other Source Culture Other Source Culture 2. Recurrent sinusitis mupirocin (BACTROBAN) 2 % ointment Amb Ref to Allergy Other Source Culture Other Source Culture 3. S/P sinus surgery mupirocin (BACTROBAN) 2 % ointment Amb Ref to Allergy Other Source Culture Other Source Culture 4. S/P nasal septoplasty 5. History of nasal septoplasty Plan: - Start applying Mupirocin to internal nose 2 times daily for 14 days. - Continue at least twice daily sinus saline lavages - Continue using nasal saline spray at least 4 times daily to keep nose moist - Culture of bilateral maxillary sinus done today - Follow up in ~2 months for evaluation and possible debridement Addendum: Maxillary sinus culture grew MRSA, susceptible to clindamycin and Bactrim. We will prescribe Bactrim x 14 days. Will consider antibiotic irrigations in the future. Carson Wolff M.D., Ph.D. Otolaryngology - Head and Neck Surgery [facility] ORT OPERATIONS DUTY MANAGER documented in this encounter Plan of Treatment Scheduled Referrals Name Type Priority Associated Diagnoses Orde r Schedule Amb Ref to Allergy Outpatient Referral Routine Recurrent sinusitis Chronic maxillary sinusitis S/P sinus surgery Ordered: 10/14/2021 documented as of this encounter Goals Goal Patient Goal Type Associated Problems Recent Progress Patient-Stated? Author Blood Pressure < 140/90 Blood Pressure 134/86(2022 2:25 PM CDT) No Leonard Jasso APRN documented as of this encounter Results * Other Source Culture (10/14/2021 12:44 PM AIRPORT OPERATIONS DUTY MANAGER) Other Source Culture Microbiology results [facility] Comment: SOURCE Right Maxillary Sinus QUANTITATION FEW, MIXED RESULT Methicillin Resistant Staphylococcus aureus (Isolate 1) RESULT COAGULASE NEGATIVE STAPHYLOCOCCUS, IDENTIFICATION ONLY ??(Isolate 2) SENSITIVITY ANALYSIS ?Isolate 1 ? CIPROFLOXACIN ? >2 ?R CLINDAMYCIN ? <=0.25 ?S ERYTHROMYCIN ?>4 ?R LEVOFLOXACIN ? 4 ?I OXACILLIN ? >2 ?R PENICILLIN ?>8 ?? R* TETRACYCLINE ? <=1 ?S TRIMETHOPRIM/SULFA ? <=0.5/9.5 ?S VANCOMYCIN ? 1 ?S MAXILLARY SINUS STRUCTURE / Unknown 10/14/2021 12:44 PM AIRPORT OPERATIONS DUTY MANAGER 10/14/2021 12:45 PM AIRPORT OPERATIONS DUTY MANAGER Comment:- Narrative [facility] - 10/18/2021 10:15 AM AIRPORT OPERATIONS DUTY MANAGER Right Maxillary Sinus Testing performed at [facility], [address] [place] [address]. CLIA [id number] Phone [phone] ??Invoice Classification Clerk Shant Rivas MD us Carson Wolff MD MICROBIOLOGY - GENERAL OR DERABLES Final Result Performing Organization Address [facility] Co de Phone Number [facility] [address] [place] [address] [phone] * Other Source Culture (10/14/2021 12:44 PM AIRPORT OPERATIONS DUTY MANAGER) Other Source Culture Microbiology results [facility] Comment: SOURCE Maxillary Sinus LEFT QUANTITATION FEW RESULT COAGULASE NEGATIVE STAPHYLOCOCCUS, IDENTIFICATION ONLY ??(Isolate 1) MAXILLARY SINUS STRUCTURE / Unknown 10/14/2021 12:44 PM AIRPORT OPERATIONS DUTY MANAGER 10/14/2021 12:45 PM AIRPORT OPERATIONS DUTY MANAGER Comment:- Narrative [facility] - 10/17/2021 11:13 AM AIRPORT OPERATIONS DUTY MANAGER Left Maxillary Sinus Testing performed at [facility], [address] [place] [address]. CLIA [id number] Phone [phone] Ext [phone] ??Invoice Classification Clerk Shant Rivas MD Carson Wolff MD MICROBIOLOGY - GENERAL OR DERABLES Final Result Performing Organization Address [facility] Co de Phone Number [facility] [address] [place] [address] [phone] documented in this encounter Visit Diagnoses Diagnosis Chronic maxillary sinusitis- Primary Recurrent sinusitis Unspecified sinusitis (chronic) S/P sinus surgery Other postprocedural status S/P nasal septoplasty Other postprocedural status History of nasal septoplasty Other postprocedural status documented in this encounter Additional Health Concerns Assessment Noted Time A fall risk assessment has been complete d for the patient 08/27/2021 11:36 AM CDT A Body Mass Index follow-up plan has been documented for the patient 06/30/2021 12:12 PM CDT documented as of this encounter Care Teams Safety Grooving Machine Operator Relationship Specialty Start Date End Date Michell Trevizo MD [address] [place] [address] PCP - General Internal Medicine 05/29/21 02/25/22 Lacey Perdue MD [address] [place] [phone] Referring Physician Infectious Diseases 06/28/18 documented as of this encounter
--- OUTSIDE RECORDS SUMMARY | 2024-11-23 00:25 | XMS_ITS | Encounter Summary ---
Author Organization [facility] Address [address] [place] [address] Care Team Providers Care Federal Judge Name Role Phone Lacey Perdue MD Unavailable [phone] Michell Trevizo MD Primary Care Provider [phone] Encounter Details Date Type Department Care Team (Latest Contact Info) Description 07/28/2021 Travel Social History Tobacco Use Types Packs/Day [...] of Assessment Author No 10/25/2017 2:00 PM LANDSCAPE SUPERVISOR Galvan, Am y S, SPECIMEN PREPARATION ASSISTANT * Do you have serious difficulty walking or climbing stairs? (5 years old or older) Answer Date of Assessment Author No 10/25/2017 2:00 PM Deonna Padilla S, SPECIMEN PREPARATION ASSISTANT * Do you have difficulty dressing or bathing? (5 years old or older) Answer Date of Assessment Author No 10/25/2017 2:00 PM JOHN Galvan Am y S, SPECIMEN PREPARATION ASSISTANT * Because of a physical, mental, or emotional condition, do you have difficulty doing errands alone such as visiting a doctor's office or shopping? (15 years old or older) Answer Date of Assessment Author No 10/25/2017 2:00 PM JOHN Galvan Am y S, SPECIMEN PREPARATION ASSISTANT documented as of this encounter Mental Status * Because of a physical, mental, or emotional condition, do you have serious difficulty concentrating, remembering, or making decisions? (5 years old or older) Answer Entry Date Author No 10/25/2017 2:00 PM Deonna Padilla S, SPECIMEN PREPARATION ASSISTANT documented in this encounter Plan of [...] documented as of this encounter Care Teams Federal Judge Relationship Specialty Start Date End Date Michell Trevizo MD [facility] [place] [address] PCP - General Internal Medicine 05/29/21 02/25/22 Lacey Perdue MD [address] [phone] Referring Physician Infectious Diseases 06/28/18 documented as of this encounter
--- OUTSIDE RECORDS SUMMARY | 2024-11-23 00:25 | XMS_ITS | Encounter Summary ---
Author Organization [employer] Address [address] [place] [address] Care Team Providers Care Paint Spray Tender Name Role Phone Lacey Perdue MD Unavailable [phone] Michell Trevizo MD Primary Care Provider Reason for Visit * Reason Comments Follow-up 1 month- neck pain Encounter Details Date Type Department Care Team (Latest Contact Info) Description 10/14/2021 9:00 AM PUBLICATION MANAGER Office Visit [facility] Internal Medicine [address] [place] [phone] Michell Trevizo MD [address] [place] [phone] COVID-19 (Primary Dx); Congestion of nasal sinus; Encounter for long-term current use of medication; Chronic bilateral low back pain with left-sided sciatica; Spinal stenosis, unspecified spinal region; Hyperlipidemia, unspecified hyperlipidemia type; Herniation of lumbar intervertebral disc without myelopathy Social History Tobacco Use Types [...] COVID-19? No / Unsure 10/14/2021 8:23 AM PUBLICATION MANAGER documented as of this encounter Last Filed Vital Signs Vital Sign Reading Time Taken Comments Blood Pressure 118/78 10/14/2021 8:51 AM PUBLICATION MANAGER Pulse 80 10/14/2021 8:51 AM PUBLICATION MANAGER Temperature - - Respiratory Rate - - Oxygen Saturation - - Inhaled Oxygen Concentration - - Weight 89.4 kg (197 lb) 10/14/2021 8:51 AM PUBLICATION MANAGER Height - - Body Mass Index 27.48 02/25/2021 9:01 AM CDT documented in this encounter Functional Status * Are you deaf or do you have serious difficulty hearing? Answer Date of Assessment Author No 10/25/2017 2:00 PM PUBLICATION MANAGER Deonna Galvan y S, PRODUCT INTRODUCTION MANAGER * Are you blind or do you have serious difficulty seeing, even when wearing glasses? Answer Date of Assessment Author No 10/25/2017 2:00 PM PUBLICATION MANAGER Cole Am y S, PRODUCT INTRODUCTION MANAGER * Do you have serious difficulty walking or climbing stairs? (5 years old or older) Answer Date of Assessment Author No 10/25/2017 2:00 PM PUBLICATION MANAGER Cole Am y S, PRODUCT INTRODUCTION MANAGER * Do you have difficulty dressing or bathing? (5 years old or older) Answer Date of Assessment Author No 10/25/2017 2:00 PM PUBLICATION MANAGER Cole Am y S, PRODUCT INTRODUCTION MANAGER * Because of a physical, mental, or emotional condition, do you have difficulty doing errands alone such as visiting a doctor's office or shopping? (15 years old or older) Answer Date of Assessment Author No 10/25/2017 2:00 PM PUBLICATION MANAGER Cole Am y S, PRODUCT INTRODUCTION MANAGER documented as of this encounter Mental Status * Because of a physical, mental, or emotional condition, do you have serious difficulty concentrating, remembering, or making decisions? (5 years old or older) Answer Entry Date Author No 10/25/2017 2:00 PM PUBLICATION MANAGER Cole Am y S, PRODUCT INTRODUCTION MANAGER documented in this encounter Patient Instructions * Patient Instructions* Michell Trevizo MD - 10/14/2021 9:00 AM PUBLICATION MANAGER COVID testing Hold on Flu shot till feeling better Follow 1 month ICATION MANAGER ICATION MANAGER ICATION MANAGER documented in this encounter Progress Notes * Meme Chen LPN - 10/14/2021 9:00 AM CST [facility] Department of Internal Medicine [address] [place] [phone] Visit Date: 10/14/2021 MEDICARE ANNUAL WELLNESS VISIT This visit must occur >1 year after patient's Initial Medicare Annual Wellness Visit. This visit may only occur if not done elsewhere. Subjective: Edilberto Hawley is a 66 y.o. male who presents to [facility] for his Medicare Wellness Visit. Patient Care Team: Michell Trevizo MD as PCP - General (Internal Medicine) Lacey Perdue MD as Referring Physician (Infectious Diseases) HEALTH HISTORY: Is the patient on an Opioid Medication? Yes Current Outpatient Medications (Pain Medications) Medication Sig ??? aspirin 325 MG tablet Take 325 mg by mouth. ??? oxyCODONE-acetaminophen (PERCOCET) 10-325 MG per tablet TAKE ONE TABLET EVERY SIX HOURS IF NEEDED FOR PAIN. Current Outpatient Medications (Other) Medication Sig ??? amitriptyline (ELAVIL) 100 MG tablet Take 1 tablet by mouth daily. ??? Ascorbic Acid (VITAMIN C) 500 MG tablet Take 500 mg by mouth daily. ??? baclofen (LIORESAL) 10 MG tablet Take 1 tablet by mouth 3 (three) times daily as needed (musclespasms.). ??? diclofenac sodium (VOLTAREN) 50 MG EC tablet Take 1 tablet by mouth 2 (two) times daily. ??? docusate sodium (COLACE) 100 MG capsule Take 1 (one) capsule by mouth 2 (two) times daily as needed for Constipation. For use while on narcotic pain medication. ??? Multiple Vitamins-Minerals (ONE DAILY MULTIVITAMIN ADULT PO) Take by mouth. ??? NARCAN 4 MG/0.1ML LIQD nasal liquid USE DIRECTED. ??? omeprazole 20 MG tablet Take 2 tablets by mouth every morning before breakfast. ??? Probiotic Product (SOLUBLE FIBER/PROBIOTICS PO) Take 1 tablet by mouth daily. ??? tamsulosin HCl (FLOMAX) 0.4 MG capsule Take 1 capsule by mouth daily. ??? Unclassified (UNABLE TO FIND) Med Name: Keto Advanced daily ??? vitamin D (CHOLECALCIFEROL) 1000 units tablet Take 1,000 Units by mouth daily. ??? zinc sulfate (ZINCATE) 220 (50 Zn) MG capsule Take 220 mg by mouth daily. Is there evidence of Opioid Use Disorder? No Have non-opioid therapy benefits been assessed previously? Yes If not, a brief assessment today reveals [...] of left rotator cuff ??? Hyperlipidemia ??? group home current use of opiate analgesic ??? Osteoarthritis [...] 05/15/2021 Current Outpatient Medications Medication Sig ??? amitriptyline (ELAVIL) 100 MG tablet Take 1 tablet by mouth daily. ??? Ascorbic Acid (VITAMIN C) 500 MG tablet Take 500 mg by mouth daily. ??? aspirin 325 MG tablet Take 325 mg by mouth. ??? baclofen (LIORESAL) 10 MG tablet Take 1 tablet by mouth 3 (three) times daily as needed (musclespasms.). ??? diclofenac sodium (VOLTAREN) 50 MG EC tablet Take 1 tablet by mouth 2 (two) times daily. ??? docusate sodium (COLACE) 100 MG capsule Take 1 (one) capsule by mouth 2 (two) times daily as needed for Constipation. For use while on narcotic pain medication. ??? Multiple Vitamins-Minerals (ONE DAILY MULTIVITAMIN ADULT PO) Take by mouth. ??? NARCAN 4 MG/0.1ML LIQD nasal liquid USE DIRECTED. ??? omeprazole 20 MG tablet Take 2 tablets by mouth every morning before breakfast. ??? oxyCODONE-acetaminophen (PERCOCET) 10-325 MG per tablet TAKE ONE TABLET EVERY SIX HOURS IF NEEDED FOR PAIN. ??? Probiotic Product (SOLUBLE FIBER/PROBIOTICS PO) Take 1 tablet by mouth daily. ??? tamsulosin HCl (FLOMAX) 0.4 MG capsule Take 1 capsule by mouth daily. ??? Unclassified (UNABLE TO FIND) Med Name: Keto Advanced daily ??? vitamin D (CHOLECALCIFEROL) 1000 units tablet Take 1,000 Units by mouth daily. ??? zinc sulfate (ZINCATE) 220 (50 Zn) MG capsule Take 220 mg by mouth daily. No current facility-administered medications for this visit. No Known Allergies Family History Problem Relation Age of Onset ??? Dementia Mother SCREENINGS: Depression Screening: PHQ2 (date/time last recorded) PHQ-2 Total Score: 0 (08/27/2021 11:36 AM) Fall Risk Assessment: Fall Risk Assessment Activities of Daily Living (ADL's): ?? Can [...] file Health Maintenance Topic Date Due ??? Foot Exam Never done ??? Eye (Ophthalmology) Exam Never done ??? Annual Wellness Visit Never done ??? Zoster (Shingles) Vaccine 50+ (1 of 2) Never done ??? Controlled Substance Agreement-Annual Review 09/01/2019 ??? Influenza Vaccine (1) 07/16/2021 ??? COVID-19 Vaccine (1) 02/21/2022 (Originally 1967) ??? Lab-Lipids 11/29/2021 ??? Lab-Urine Microalbumin 05/29/2022 ??? Lab-Urine Drug Screen 07/28/2022 ??? Lab-HgA1C 07/28/2022 ??? Pneumococcal Vaccines 65+ (2 of 2 - PPSV23) 01/21/2023 ??? Tetanus/Pertussis Vaccine Teen/Adult (2 - Td or Tdap) 04/16/2027 ??? Colorectal Cancer Screening 12/07/2028 ??? Lab-Hepatitis C Screening Completed ??? Meningococcal Conjugate Vaccine Aged Out ??? HIB Vaccine Aged Out ??? Hepatitis B Vaccine Aged Out ??? IPV Vaccine Aged Out ??? Hepatitis A Vaccine Aged Out ??? HPV Vaccine (F:9-26YO,M: 9-22) Aged Out : HEALTH MAINTENANCE DUE: Health Maintenance Due Topic Date Due ??? Foot Exam Never done ??? Eye (Ophthalmology) Exam Never done ??? Annual Wellness Visit Never done ??? Zoster (Shingles) Vaccine 50+ (1 of 2) Never done ??? Controlled Substance Agreement-Annual Review 09/01/2019 ??? Influenza Vaccine (1) 07/16/2021 Immunization History Administered Date(s) Administered ??? Influenza (FLUAD) aIIV3 11/03/2019 ??? Influenza H1N1 preservative free 08/11/2011 ??? Influenza, inactivated, quadrivalent, ALL AGES 6 months and older, single dose syringe/vial 08/23/2020 ??? Influenza, unspecified formulation 08/16/2012, 08/23/2015, 08/13/2016 ??? Pneumococcal Polysaccharide-23 (Pneumovax 23) PPSV23 01/21/2018 ??? Tdap 04/16/2017 ??? Tetanus and Diphtheria (Tenivac) Td 05/15/2010 Objective: There were no vitals taken for this visit. BP Readings from Last 3 Encounters: 08/27/21 144/78 08/27/21 112/78 08/18/21 132/80 Wt Readings from Last 3 Encounters: 08/27/21 88.9 kg (196 lb) 07/28/21 87.1 kg (192 lb) 06/30/21 88.9 kg (196 lb) Ht Readings from Last 3 Encounters: 04/13/21 1.803 m (5' 11 ) 02/21/21 1.803 m (5' 11 ) 01/29/21 1.803 m (5' 11 ) There is no height or weight on file to calculate BMI. Lab Results Component Value Date WBC 7.2 08/27/2021 HGB 15.7 08/27/2021 HCT 46.3 08/27/2021 PLT 174 08/27/2021 CHOL 205 (H) 05/29/2021 TRIG 137 05/29/2021 HDL 52 (L) 05/29/2021 LDLCALC 125.6 05/29/2021 ALT 63 (H) 08/27/2021 AST 68 (H) 08/27/2021 NA 137 08/27/2021 K 5.2 (H) 08/27/2021 CL 103 08/27/2021 CREATININE 0.9 08/27/2021 BUN 11 08/27/2021 CO2 28.0 08/27/2021 TSH 0.870 05/29/2021 PSA 0.19 05/29/2021 INR 1.0 08/27/2021 GLU 127 (H) 08/27/2021 HGBA1C 6.7 07/28/2021 MICROALBUR 1.53 05/29/2021 Mental Status: Alert and oriented to person, place, time and situation? Yes Assessment: No diagnosis found. Plan: During the course of the visit Edilberto was educated and counseled about appropriate screening and preventive services. At the conclusion of today's visit, the patient was provided a written copy of his After Visit Summary. Michell Trevizo MD [id number] ICATION MANAGER * Michell Trevizo MD - 10/14/2021 9:00 AM CST General Internal Medicine Patient Note [facility] CC: Chief Complaint Patient presents with ??? Follow-up 1 month- neck pain History of Present Illness: Edilberto Hawley is a 66 y.o. male presenting to clinic for follow up. Recently travelled to [place] and got sick while there. Last night had nyquil and pepto bismol which helped with the throat burning. Notes significant mucus. Does not have a thermometer at home. Endorses intermittent chills. Denies taste/smell present for 6 months. Continues to have back/neck pain. Put TENS unit on the back of his neck, pulses at night and helps.Plans to schedule another appointment with pain. ROS: Pertinent positives and negatives as mentioned in HPI Past Medical/Surgical/Family/Social History: Reviewed and updated in [facility] History tab Medications: Reviewed and updated in [facility] Medications tab Current Outpatient Medications Medication [...] morning before breakfast. 60 tablet 5 ??? Probiotic Product (SOLUBLE FIBER/PROBIOTICS PO) Take 1 tablet by mouth daily. ??? tamsulosin HCl (FLOMAX) 0.4 MG capsule Take 1 (one) capsule by mouth daily. 30 capsule 3 ??? Unclassified (UNABLE TO FIND) Med Name: Keto Advanced daily ??? vitamin D (CHOLECALCIFEROL) 1000 units tablet Take 1,000 Units by mouth daily. ??? zinc sulfate (ZINCATE) 220 (50 Zn) MG capsule Take 220 mg by mouth daily. ??? mupirocin (BACTROBAN) 2 % ointment Apply topically 2 (two) times daily for 14 days. Apply to affected area. Apply to internal nose twice a day. 30 g 0 No current facility-administered medications for this visit. Allergies: Reviewed and updated in [facility] Allergies tab BP 118/78 Pulse 80 Wt 89.4 kg (197 lb) BMI 27.48 kg/m?? Physical Exam Constitutional: Well-nourished, and in no distress. Head: Normocephalic and atraumatic. Eyes: Pupils are equal, round, and reactive to light. Neck: Normal range of motion. Neck supple. Musculoskeletal: Normal range of motion. Neurological: CN grossly intact. Gait normal. Skin: Skin is warm and dry. Psychiatric: Affect normal. Labs/Imaging: Reviewed Assessment & Plan Diagnosis: 1. COVID-19 2. Congestion of nasal sinus 3. Encounter for long-term current use of medication 4. Chronic bilateral low back pain with left-sided sciatica 5. Spinal stenosis, unspecified spinal region 6. Hyperlipidemia, unspecified hyperlipidemia type 7. Herniation of lumbar intervertebral disc without myelopathy Medications provided Orders Placed This Encounter Medications ??? amitriptyline (ELAVIL) 100 MG tablet Sig: Take 1 (one) tablet by mouth daily. Dispense: 30 tablet Refill: 5 No refills available ??? DISCONTD: docusate sodium (COLACE) 100 MG capsule Sig: Take 1 (one) capsule by mouth 2 (two) times daily as needed for Constipation. For use while onnarcotic pain medication. Dispense: 30 capsule Refill: 0 ??? tamsulosin HCl (FLOMAX) 0.4 MG capsule Sig: Take 1 (one) capsule by mouth daily. Dispense: 30 capsule Refill: 3 Additional Orders: Orders Placed This Encounter Procedures ??? Coronavirus SARS-CoV-2 COVID testing Hold on Flu shot till feeling better Follow 1-2 month Tested COVID + - Offered Infusion - Denied - Recommend Quarantine I spent a total of 30 minutes on 10/14/2021 reviewing the record, performing a face to face visit, preparing, discussing the treatment, and creating documentation of the encounter. This time was separate from that spent performing other billable services. Return to clinic in 1-2 months Michell Trevizo MD Internal Medicine Sleep Medicine Obesity Medicine ICATION MANAGER documented in this encounter Plan of Treatment Not on file documented as of this encounter Goals Goal Patient Goal Type Associated Problems Recent Progress Patient-Stated? Author Blood Pressure < 140/90 Blood Pressure 134/86(2022 2:25 PM CDT) No Leonard Jasso APRN documented as of this encounter Results * (ABNORMAL) Coronavirus SARS-CoV-2 (10/14/2021 9:41 AM PUBLICATION MANAGER) SARS-CoV-2 PCR POSITIVE( A) Negative [facility] Comment:The novel coronaviru s (Sars-CoV-2) target nucleic acids are detected. NASOPHARYNGEAL SWAB / Unknown 10/14/2021 9:41 AM PUBLICATION MANAGER 10/14/2021 11:17 AM PUBLICATION MANAGER Comment:- Narrative [facility] - 10/14/2021 1:32 PM PUBLICATION MANAGER Indication Reason:->Suspected COVID-19 OP Testing is performed by the [employer] GeneXpert real-time, reverse pantograph machine operator polymerase chain reaction (RT-PCR) assay. Testing with [...] available to the physician. Testing performed at [facility], [address] [place] [address]. CLIA [id number] Phone [phone] Ext 1999 ??Pen Tender Shant Rivas MD Michell Trevizo MD MICROBIOLOGY - GENERAL ORDERAB LES Final Result [facility] [address] [place] [address] [phone] documented in this encounter Visit Diagnoses Diagnosis COVID-19- Primary Congestion of nasal sinus Other diseases of nasal cavity and sinuses Encounter for long-term current use of medication Chronic bilateral low back pain with left-sided sciatica Spinal stenosis, unspecified spinal region Hyperlipidemia, unspecified hyperlipidemia type Herniation of lumbar intervertebral disc without myelopathy Congestion of nasal sinus Other diseases of nasal cavity and sinuses documented in this encounter Additional Health Concerns Assessment Noted Time A fall risk assessment has been complete d for the patient 08/27/2021 11:36 AM CDT A Body Mass Index follow-up plan has been documented for the patient 06/30/2021 12:12 PM CDT documented as of this encounter Care Teams Paint Spray Tender Relationship Specialty Start Date End Date Michell Trevizo MD [address] [place] [address] PCP - General Internal Medicine 05/29/21 02/25/22 Lacey Perdue MD [address] [phone] Referring Physician Infectious Diseases 06/28/18 documented as of this encounter
--- OUTSIDE RECORDS SUMMARY | 2024-11-23 00:26 | XMS_ITS | Encounter Summary ---
Author Organization [employer] Address [address] [place] [address] Care Team Providers Care Machine Shop Specialist Name Role Phone Lacey Perdue MD Unavailable [phone] Leonard Jasso APRN Primary Care Provide r Encounter Details Date Type Department Care Team (Latest Contact Info) Description 12/18/2020 Travel Social History Tobacco Use Types Packs/Day Years Used Date Smoking Tobacco: Never Smokeless Tobacco: Never Alcohol Use Standard Drinks/Week Comments No 0 (1 standard drink = 0.6 oz pur e alcohol) Sex and Gender Information Value Date Recorded [...] have Coronavirus / COVID-19? No / Unsure 12/18/2020 7:35 AM LEGAL SPECIALIST documented as of this encounter Functional Status [...] 2:00 PM JOHN Galvan Am y S, CERTIFIED PERFORMANCE TECHNOLOGIST * Do you have difficulty dressing or bathing? (5 years old or older) Answer Date of Assessment Author No 10/25/2017 2:00 PM JOHN Galvan Am y S, CERTIFIED PERFORMANCE TECHNOLOGIST * Because of a physical, mental, or emotional condition, do you have difficulty doing errands alone such as visiting a doctor's office or shopping? (15 years old or older) Answer Date of Assessment Author No 10/25/2017 2:00 PM JOHN Galvan Am y S, CERTIFIED PERFORMANCE TECHNOLOGIST documented as of this encounter Mental Status * Because of a physical, mental, or emotional condition, do you have serious difficulty concentrating, remembering, or making decisions? (5 years old or older) Answer Entry Date Author No 10/25/2017 2:00 PM JOHN Galvan Am y S, CERTIFIED PERFORMANCE TECHNOLOGIST documented in this encounter Plan of Treatment Not on file documented as of this encounter Goals Goal Patient Goal Type Associated Problems Recent Progress Patient-Stated? Author Blood Pressure < 140/90 Blood Pressure 134/86(2022 2:25 PM CDT) No Leonard Jasso APRN documented as of this encounter Visit Diagnoses Not on filedocumented in this encounter Care Teams Machine Shop Specialist Relationship Specialty Start Date End Date Leonard Jasso APRN [address] [facility] [address] [place] [address] PCP - General Family Medicine 08/15/19 04/30/21 Lacey Perdue MD [address] [facility] [address] [phone] Referring Physician Infectious Diseases 06/28/18 documented as of this encounter
--- OUTSIDE RECORDS SUMMARY | 2024-11-23 00:26 | XMS_ITS | Encounter Summary ---
Author Organization [employer] Address [address] [place] [id number] Care Team Providers Care Hydrometeorological Technician Name Role Phone Lacey Perdue MD Unavailable [phone] Leonard Jasso APRN Primary Care Provide r Encounter Details Date Type Department Care Team (Latest Contact Info) Description 01/15/2021 Travel Social History Tobacco Use Types Packs/Day [...] have Coronavirus / COVID-19? No / Unsure 01/15/2021 11:18 AM CLOTH PRINTING UTILITY WORKER documented as of this encounter Functional [...] PM JOHN Galvan Am y S, DIRECTOR DERMATOLOGY * Do you have difficulty dressing or bathing? (5 years old or older) Answer Date of Assessment Author No 10/25/2017 2:00 PM JOHN Galvan Am y S, DIRECTOR DERMATOLOGY * Because of a physical, mental, or emotional condition, do you have difficulty doing errands alone such as visiting a doctor's office or shopping? (15 years old or older) Answer Date of Assessment Author No 10/25/2017 2:00 PM JOHN Galvan Am y S, DIRECTOR DERMATOLOGY documented as of this encounter Mental Status * Because of a physical, mental, or emotional condition, do you have serious difficulty concentrating, remembering, or making decisions? (5 years old or older) Answer Entry Date Author No 10/25/2017 2:00 PM JOHN Galvan Am y S, DIRECTOR DERMATOLOGY documented in this encounter Plan of Treatment Not on file documented as of this encounter Goals Goal Patient Goal Type Associated Problems Recent Progress Patient-Stated? Author Blood Pressure < 140/90 Blood Pressure 134/86(2022 2:25 PM CDT) No Leonard Jasso APRN documented as of this encounter Visit Diagnoses Not on filedocumented in this encounter Care Teams Hydrometeorological Technician Relationship Specialty Start Date End Date Leonard Jasso APRN [address] [facility] [address] [place] [address] PCP - General Family Medicine 08/15/19 04/30/21 Lacey Perdue MD [address] [facility] [address] [phone] Referring Physician Infectious Diseases 06/28/18 documented as of this encounter
--- OUTSIDE RECORDS SUMMARY | 2024-11-23 00:26 | XMS_ITS | Encounter Summary ---
Author Organization [employer] Address [address] [place] [address] Care Team Providers Care Press Offbearer Name Role Phone Lacey Perdue MD Unavailable [phone] Leonard Jasso APRN Primary Care Provide r Reason for Visit * Reason Comments Nurse Visit pre-op COVID per Dr. Julio Encounter Details Date Type Department Care Team (Late st Contact Info) Description 12/14/2020 10:00 AM AGGREGATE CONVEYOR OPERATOR Clinical Support [facility] [address] [place] [address] Mendy Lerma, RN [address] [place] [address] [place] [id number] Social History Tobacco Use Types Packs/Day Years [...] have Coronavirus / COVID-19? No / Unsure 12/11/2020 9:15 AM AGGREGATE CONVEYOR OPERATOR documented as of this encounter Functional Status * Are you deaf or do you have serious difficulty hearing? Answer Date of Assessment Author No 10/25/2017 2:00 PM AGGREGATE CONVEYOR OPERATOR Galvan, Am y S, OUTSOLE TACKER * Are you blind or do you have serious difficulty seeing, even when wearing glasses? Answer Date of Assessment Author No 10/25/2017 2:00 PM AGGREGATE CONVEYOR OPERATOR Cole Am y S, OUTSOLE TACKER * Do you have serious difficulty walking or climbing stairs? (5 years old or older) Answer Date of Assessment Author No 10/25/2017 2:00 PM AGGREGATE CONVEYOR OPERATOR Cole Am y S, OUTSOLE TACKER * Do you have difficulty dressing or bathing? (5 years old or older) Answer Date of Assessment Author No 10/25/2017 2:00 PM AGGREGATE CONVEYOR OPERATOR Cole Am y S, OUTSOLE TACKER * Because of a physical, mental, or emotional condition, do you have difficulty doing errands alone such as visiting a doctor's office or shopping? (15 years old or older) Answer Date of Assessment Author No 10/25/2017 2:00 PM AGGREGATE CONVEYOR OPERATOR Cole Am y S, OUTSOLE TACKER documented as of this encounter Mental Status * Because of a physical, mental, or emotional condition, do you have serious difficulty concentrating, remembering, or making decisions? (5 years old or older) Answer Entry Date Author No 10/25/2017 2:00 PM AGGREGATE CONVEYOR OPERATOR Cole Am y S, OUTSOLE TACKER documented in this encounter Plan of Treatment Not on file documented as of this encounter Goals Goal Patient Goal Type Associated Problems Recent Progress Patient-Stated? Author Blood Pressure < 140/90 Blood Pressure 134/86(2022 2:25 PM CDT) No Leonard Jasso APRN documented as of this encounter Visit Diagnoses Not on filedocumented in this encounter Care Teams Press Offbearer Relationship Specialty Start Date End Date Leonard Jasso APRN [address] [facility] [address] [place] [address] PCP - General Family Medicine 08/15/19 04/30/21 Lacey Perdue MD [address] [phone] Referring Physician Infectious Diseases 06/28/18 documented as of this encounter
--- OUTSIDE RECORDS SUMMARY | 2024-11-23 00:26 | XMS_ITS | Encounter Summary ---
Author Organization [employer] Address [address] [place] [address] Care Team Providers Care Quick Technician Name Role Phone Lacey Perdue MD Unavailable [phone] Leonard Jasso APRN Primary Care Provide r Reason for Visit * Reason Onset Date Comments Natty test positive 12/20/2020 Encounter Details Date Type Department Care Team (Late st Contact Info) Description 12/20/2020 Telephone [facility] [address] [place] [address] Kenneth Wall, RN [address] [place] [address] Natty test positive Social History Tobacco Use Types Packs/Day Years [...] COVID-19? No / Unsure 12/18/2020 7:[address] PATCHER documented as of this encounter Functional Status * Are you deaf or do you have serious difficulty hearing? Answer Date of Assessment Author No 10/25/2017 2:[address] PATCHER Galvan, Am y S, DUST SAMPLER * Are you blind or do you have serious difficulty seeing, even when wearing glasses? Answer Date of Assessment Author No 10/25/2017 2:[address]ATCHER Galvan, Am y S, DUST SAMPLER * Do you have serious difficulty walking or climbing stairs? (5 years old or older) Answer Date of Assessment Author No 10/25/2017 2:[address]ATCHER Galvan, Am y S, DUST SAMPLER * Do you have difficulty dressing or bathing? (5 years old or older) Answer Date of Assessment Author No 10/25/2017 2:[address]ATCHER Galvan, Am y S, DUST SAMPLER * Because of a physical, mental, or emotional condition, do you have difficulty doing errands alone such as visiting a doctor's office or shopping? (15 years old or older) Answer Date of Assessment Author No 10/25/2017 2:[address]ER Galvan, Am y S, DUST SAMPLER documented as of this encounter Mental Status * Because of a physical, mental, or emotional condition, do you have serious difficulty concentrating, remembering, or making decisions? (5 years old or older) Answer Entry Date Author No 10/25/2017 2:[address]ER Galvan, Am y S, DUST SAMPLER documented in this encounter Miscellaneous Notes * Telephone Encounter - Kenneth Wall RN - 01/08/2021 2:13 PM CST Mr. Hawley called the office back and his results and recommendations were given to him. He request the prescriptions be sent to [facility] in [place]. PATCHER * Addendum Note - Kenneth Wall RN - 01/08/2021 2:13 PM CSTAddended by: KENNETH WALL on: 01/08/2021 02:13 PM Modules accepted: Orders PATCHER * Telephone Encounter - Kenneth Wall RN - 12/20/2020 3:22 PM CST Attempted to contact Mr. Hawley to let him know that his Natty test came back positive and inform him of the new medication that Dr. Loyd has prescribed for him. I was unable to contact him, so a message was left to have him call the office back. PATCHER documented in this encounter Plan of Treatment Not on file documented as of this encounter Goals Goal Patient Goal Type Associated Problems Recent Progress Patient-Stated? Author Blood Pressure < 140/90 Blood Pressure 134/86(2022 2:25 PM CDT) No Leonard Jasso APRN documented as of this encounter Visit Diagnoses Diagnosis Positive H. pylori test- Primary Helicobacter pylori (H. pylori) documented in this encounter Care Teams Quick Technician Relationship Specialty Start Date End Date Leonrad Jasso APRN [address] [facility] [address] [place] [address] PCP - General Family Medicine 08/15/19 04/30/21 Lacey Perdue MD [address] [phone] Referring Physician Infectious Diseases 06/28/18 documented as of this encounter
--- OUTSIDE RECORDS SUMMARY | 2024-11-23 00:26 | XMS_ITS | Encounter Summary ---
Author Organization [employer] Address [address] [place] [address] Care Team Providers Care Transit Man Name Role Phone Lacey Perdue MD Unavailable [phone] Patient, None Per Primary Care Provider Unavaila ble Reason for Visit * Reason Onset Date Comments upcoming injections 05/14/2021 Encounter Details Date Type Department Care Team (Late st Contact Info) Description 05/14/[address] [facility] [address] [place] [address] Maris Linder, RN [address] [place] [address] upcoming injections Social History Tobacco Use Types Packs/Day Years [...] No 10/25/2017 2:00 PM Deonna Padilla, MARKETING EFFECTIVENESS MANAGER * Do you have serious difficulty walking or climbing stairs? (5 years old or older) Answer Date of Assessment Author No 10/25/2017 2:00 PM Deonna Padilla, MARKETING EFFECTIVENESS MANAGER * Do you have difficulty dressing or bathing? (5 years old or older) Answer Date of Assessment Author No 10/25/2017 2:00 PM Deonna Padilla, MARKETING EFFECTIVENESS MANAGER * Because of a physical, mental, [...] encounter Miscellaneous Notes * Telephone Encounter - Maris Linder RN - 05/14/2021 2:39 PM CDT ----- Message from Shilpa Townsend sent at 05/14/2021 2:18 PM CDT ----- Patient was called in regards to upcoming injection appointment on 05/15 Patient denies any recent fever, cough, shortness of breath, or exposure to anyone positive for COVID-19 within the last 14 days. Also, notified that they will need to wear a mask or facial covering to appointment and their escort car driver will need to wait in the car. Patient denies any recent antibiotics or steroids. No allergy to iodine/contrast, chlorhexidine, orlatex. Denies blood thinners. Patient notified of the need for a escort car driver and to contact the office should they become ill prior to appointment. No covid no pacemaker Patient verbalized positive understanding. Thank you Shilpa Townsend documented in this encounter Plan of Treatment [...] documented as of this encounter Care Teams Transit Man Relationship Specialty Start Date End Date Patient, None Per PCP - General 05/01/21 05/28/21 Lacey Perdue MD [address] [address] Referring Physician Infectious Diseases 06/28/18 documented as of this encounter
--- OUTSIDE RECORDS SUMMARY | 2024-11-23 00:26 | XMS_ITS | Encounter Summary ---
Author Organization [employer] Address [address] [place] [address] Care Team Providers Care Rugby Union Footballer Name Role Phone Lacey Perdue MD Unavailable [phone] Leonard Jasso APRN Primary Care Provide r Encounter Details Date Type Department Care Team (Latest Contact Info) Description 02/21/2021 Travel Social History Tobacco Use Types Packs/Day [...] have Coronavirus / COVID-19? No / Unsure 02/21/2021 2:06 PM CDT documented as of this encounter [...] 2:00 PM JOHN Galvan Am y S, NEUROSURGICAL NURSE PRACTITIONER * Do you have difficulty dressing or bathing? (5 years old or older) Answer Date of Assessment Author No 10/25/2017 2:00 PM JOHN Galvan Am y S, NEUROSURGICAL NURSE PRACTITIONER * Because of a physical, mental, or emotional condition, do you have difficulty doing errands alone such as visiting a doctor's office or shopping? (15 years old or older) Answer Date of Assessment Author No 10/25/2017 2:00 PM JOHN Galvan Am y S, NEUROSURGICAL NURSE PRACTITIONER documented as of this encounter Mental Status * Because of a physical, mental, or emotional condition, do you have serious difficulty concentrating, remembering, or making decisions? (5 years old or older) Answer Entry Date Author No 10/25/2017 2:00 PM JOHN Galvan Am y S, NEUROSURGICAL NURSE PRACTITIONER documented in this encounter Plan of Treatment Not on file documented as of this encounter Goals Goal Patient Goal Type Associated Problems Recent Progress Patient-Stated? Author Blood Pressure < 140/90 Blood Pressure 134/86(2022 2:25 PM CDT) No Leonard Jasso APRN documented as of this encounter Visit Diagnoses Not on filedocumented in this encounter Care Teams Rugby Union Footballer Relationship Specialty Start Date End Date Leonard Jasso APRN [address] [facility] [address] [place] [address] PCP - General Family Medicine 08/15/19 04/30/21 Lacey Perdue MD [address] [phone] Referring Physician Infectious Diseases 06/28/18 documented as of this encounter
--- OUTSIDE RECORDS SUMMARY | 2024-11-23 00:26 | XMS_ITS | Encounter Summary ---
Author Organization [employer] Address [address] [place] [address] Care Team Providers Care Tattoo Artist Name Role Phone Lacey Perdue MD Unavailable [phone] Patient, None Per Primary Care Provider Unavaila ble Reason for Referral * MRI/CAT Scan (Routine) - Closed Specialty Diagnoses / Procedures Referred By Celine almaguer Referred To Contact Radiology Diagnoses Sinusitis, unspecified chronicity, unspecified location Gastroesophageal reflux disease, unspecified whether esophagitis present Dysphagia, unspecified type Recurrent sinusitis Procedures CT Maxillofacial wo Contrast Brayden Wolff MD [address] [place] [phone] Phone: tel: fax: Referral ID Status Reason Start Date Expiration Date Visits Re quested Visits Authorized [id number] Closed 05/06/2021 11/07/2022 1 1 * Diagnostic Radiology (Routine) - Closed Specialty Diagnoses / Procedures Referred By Celine almaguer Referred To Contact Diagnoses Sinusitis, unspecified chronicity, unspecified location Gastroesophageal reflux disease, unspecified whether esophagitis present Dysphagia, unspecified type Recurrent sinusitis Procedures Swallowing Function w Cine Video Brayden Wolff MD [address] [place] [phone] Phone: tel: fax: Referral ID Status Reason Start Date Expiration Date Visits Re quested Visits Authorized [id number] Closed 05/06/2021 11/07/2022 1 1 Encounter Details Date Type Department Care Team (Latest Contact Info) Description 05/06/2021 Transcribe Orders [facility] [address] [place] [address] Eve Ward LPN [address] [place] [address] Dysphagia, unspecified type (Primary Dx); Sinusitis, unspecified chronicity, unspecified location; Gastroesophageal reflux disease, unspecified whether esophagitis present; Recurrent sinusitis Social History Tobacco Use Types [...] have Coronavirus / COVID-19? No / Unsure 04/07/2021 2:03 PM CDT documented as of this encounter Functional Status * Are you deaf or do you have serious difficulty hearing? Answer Date of Assessment Author No 10/25/2017 2:00 PM Julia Padilla, BICYCLE REPAIRER * Are you blind or do you have serious difficulty seeing, even when wearing glasses? Answer Date of Assessment Author No 10/25/2017 2:00 PM Julia Padilla, BICYCLE REPAIRER * Do you have serious difficulty walking or climbing stairs? (5 years old or older) Answer Date of Assessment Author No 10/25/2017 2:00 PM Julia Padilla, BICYCLE REPAIRER * Do you have difficulty dressing or bathing? (5 years old or older) Answer Date of Assessment Author No 10/25/2017 2:00 PM Julia Padilla ARNP * Because of a physical, mental, or emotional condition, do you have difficulty doing errands alone such as visiting a doctor's office or shopping? (15 years old or older) Answer Date of Assessment Author No 10/25/2017 2:00 PM Julia Padilla ARNP documented as of this encounter Mental Status * Because of a physical, mental, or emotional condition, do you have serious difficulty concentrating, remembering, or making decisions? (5 years old or older) Answer Entry Date Author No 10/25/2017 2:00 PM Julia Padilla ARNP documented in this encounter Plan of Treatment Not on file documented as of this encounter Goals Goal Patient Goal Type Associated Problems Recent Progress Patient-Stated? Author Blood Pressure < 140/90 Blood Pressure 134/86(2022 2:25 PM CDT) No Leonard Jasso APRN documented as of this encounter Results * CT Maxillofacial wo Contrast (05/26/2021 1:49 PM CDT) Anatomical Region Laterality Modality Head Computed Tomogra phy 05/26/2021 1:49 PM CDT Narrative 05/26/2021 3:[address] PM CDT [address] ??[address] DIAGNOSTIC IMAGING Name: EDILBERTO HAWLEY ??Ordering Phys: ANTOLIN, BRAYDEN M Date of : 1955 ?Gender: M ??Accession Number: [id number] EXAM DESCRIPTION: CT MAXILLOFACIAL WO CONTRAST REASON FOR STUDY: Chronic sinusitis. ??Hoarseness. TECHNIQUE: Computed tomography axial images are obtained of the paranasal sinuses on the cone beam CT unit without contrast. ??Reconstructed sagittal and coronal images are reviewed. ??Automated exposure control was used as a dose optimization technique for this examination. COMPARISON: No prior FINDINGS: Paranasal SINUSES: There is a mucous retention cyst in the anterior aspect of the left maxillary sinus versus focal mucosal thickening. ??No air-fluid levels. ??The right maxillary sinus is clear. ??Frontal sinuses and bilateral ethmoid air cells are clear. ??Sphenoid sinuses are clear. NASAL CAVITY: Nasal septum is slightly deviated to the left. ??The ostiomeatal complexes are patent bilaterally. ORBITS:Bony orbits are intact. ??Globes and intraorbital contents are symmetric. TMJ'S: Degenerative changes of the TMJs without bone erosion. MASTOIDS: There is mild sclerosis left mastoid air cells. ??Right mastoid air cells are clear. BRAIN: Limited view. ??No acute findings. OTHER: No other significant findings. IMPRESSION: 1. Mucous retention cyst versus focal mucosal thickening left maxillary sinus. 2. No evidence of acute sinusitis. 3. Sclerosis left mastoid air cells. THIS IS AN ELECTRONICALLY VERIFIED FINAL REPORT 05/26/2021 3:34 PM - Electronically signed by Dayanna Durbin M.D. Procedure Note Dayanna Durbin MD - 05/26/2021 [place] [address] DIAGNOSTIC IMAGING Name: EDILBERTO HAWLEY Ordering Phys: ANTOLIN BRAYDEN Bon Date of : 1955 Gender: M Accession Number: [id number] EXAM DESCRIPTION: CT MAXILLOFACIAL WO CONTRAST REASON FOR STUDY: Chronic sinusitis. Hoarseness. TECHNIQUE: Computed tomography axial images are obtained of the paranasal sinuses on the cone beam CT unit without contrast. Reconstructed sagittal and coronal images are reviewed. Automated exposure control was used as a dose optimization technique for this examination. COMPARISON: No prior FINDINGS: Paranasal SINUSES: There is a mucous retention cyst in the anterior aspect of the left maxillary sinus versus focal mucosal thickening. No air-fluid levels. The right maxillary sinus is clear. Frontal sinuses and bilateral ethmoid air cells are clear. Sphenoid sinuses are clear. NASAL CAVITY: Nasal septum is slightly deviated to the left. The ostiomeatal complexes are patent bilaterally. ORBITS:Bony orbits are intact. Globes and intraorbital contents are symmetric. TMJ'S: Degenerative changes of the TMJs without bone erosion. MASTOIDS: There is mild sclerosis left mastoid air cells. Right mastoid air cells are clear. BRAIN: Limited view. No acute findings. OTHER: No other significant findings. IMPRESSION: 1. Mucous retention cyst versus focal mucosal thickening left maxillary sinus. 2. No evidence of acute sinusitis. 3. Sclerosis left mastoid air cells. THIS IS AN ELECTRONICALLY VERIFIED FINAL REPORT 05/26/2021 3:34 PM - Electronically signed by Dayanna Durbin M.D. us Brayden Wolff MD IMG CT ORDERABLES Final R esult * Swallowing Function w Cine Video (05/14/2021 1:00 PM CDT) Anatomical Region Laterality Modality Radiographic Jazz ging 05/14/2021 1:00 PM CDT Narrative 05/14/2021 3:47 PM CDT [address] ??[address] DIAGNOSTIC IMAGING Name: EDILBERTO HAWLEYDONITA ??Ordering Phys: BRAYDEN WOLFF Date of : 1955 ?Gender: M ??Accession Number: [id number] EXAM DESCRIPTION: SWALLOWING FUCNTION W CINE VIDEO REASON FOR STUDY: Dysphasia FLUOROSCOPY TIME: 1.4 TECHNIQUE: Fluoroscopic assistance provided to Speech Pathology Department who performed the exam. ??The patient was brought into the fluoro room and placed upright on a modified barium swallow chair. ??The patient was then given multiple consistencies mixed with barium to swallow under live fluoroscopic video guidance. ??Fluoroscopic series were obtained and saved to PACS. COMPARISON: None. FINDINGS: No episode of laryngeal penetration or aspiration. Please see speech therapy report for complete evaluation. IMPRESSION: No episode of laryngeal penetration or aspiration. THIS IS AN ELECTRONICALLY VERIFIED FINAL REPORT 05/14/2021 3:44 PM - Electronically signed by Dayanna Durbin M.D. Procedure Note Dayanna Durbin MD - 05/14/[address] [address] DIAGNOSTIC IMAGING Name: KIZZYEDILBERTO Ordering Phys: BRAYDEN WOLFF Date of : 1955 Gender: M Accession Number: [id number] EXAM DESCRIPTION: SWALLOWING FUCNTION W CINE VIDEO REASON FOR STUDY: Dysphasia FLUOROSCOPY TIME: 1.4 TECHNIQUE: Fluoroscopic assistance provided to Speech Pathology Department who performed the exam. The patient was brought into the fluoro room and placed upright on a modified barium swallow chair. The patient was then given multiple consistencies mixed with barium to swallow under live fluoroscopic video guidance. Fluoroscopic series were obtained and saved to PACS. COMPARISON: None. FINDINGS: No episode of laryngeal penetration or aspiration. Please see speech therapy report for complete evaluation. IMPRESSION: No episode of laryngeal penetration or aspiration. THIS IS AN ELECTRONICALLY VERIFIED FINAL REPORT 05/14/2021 3:44 PM - Electronically signed by Dayanna Durbin M.D. Brayden Wolff MD IMG FLUOROSCOPY ORDERABLE S Final Result documented in this encounter Visit Diagnoses Diagnosis Dysphagia, unspecified type- Primary Sinusitis, unspecified chronicity, unspecified location Gastroesophageal reflux disease, unspecified whether esophagitis present Recurrent sinusitis Unspecified sinusitis (chronic) Sinusitis, unspecified chronicity, unspecified location Gastroesophageal reflux disease, unspecified whether esophagitis present Dysphagia, unspecified type Recurrent sinusitis Unspecified sinusitis (chronic) documented in this encounter Additional Health Concerns Assessment Noted Time A fall risk assessment has been complete d for the patient 04/16/2021 8:08 AM CDT documented as of this encounter Care Teams Tattoo Artist Relationship Specialty Start Date End Date Patient, None Per PCP - General 05/01/21 05/28/21 Lacey Perdue MD [address] [phone] Referring Physician Infectious Diseases 06/28/18 documented as of this encounter
--- OUTSIDE RECORDS SUMMARY | 2024-11-23 00:26 | XMS_ITS | Encounter Summary ---
Author Organization [employer] Address [address] [place] [address] Care Team Providers Care Experimental Flight Test Mechanic Name Role Phone Lacey Perdue MD Unavailable [phone] Michell Trevizo MD Primary Care Provider [phone] Encounter Details Date Type Department Care Team (Late st Contact Info) Description 06/05/2021 11:00 AM CDT Evaluation [facility] [address] [place] [address] Debby Robledo, AuD Sensory hearing loss, bilateral (Primary Dx) Social History Tobacco Use Types [...] of Assessment Author No 10/25/2017 2:00 PM ORE MINER BLASTING Galvan, Am y S, RETAIL RECEIVING CLERK * Are you blind or do you have serious difficulty seeing, even when wearing glasses? Answer Date of Assessment Author No 10/25/2017 2:00 PM ORE MINER BLASTING Galvan, Am y S, RETAIL RECEIVING CLERK * Do you have serious difficulty walking or climbing stairs? (5 years old or older) Answer Date of Assessment Author No 10/25/2017 2:00 PM ORE MINER BLASTING Galvan, Am y S, RETAIL RECEIVING CLERK * Do you have difficulty dressing or bathing? (5 years old or older) Answer Date of Assessment Author No 10/25/2017 2:00 PM ORE MINER BLASTING Galvan, Am y S, RETAIL RECEIVING CLERK * Because of a physical, mental, or emotional condition, do you have difficulty doing errands alone such as visiting a doctor's office or shopping? (15 years old or older) Answer Date of Assessment Author No 10/25/2017 2:00 PM ORE MINER BLASTING Galvan, Am y S, RETAIL RECEIVING CLERK documented as of this encounter Mental Status * Because of a physical, mental, or emotional condition, do you have serious difficulty concentrating, remembering, or making decisions? (5 years old or older) Answer Entry Date Author No 10/25/2017 2:00 PM ORE MINER BLASTING Galvan, Am y S, RETAIL RECEIVING CLERK documented in this encounter Progress Notes * Debby Robledo, AuD - 06/05/2021 11:00 AM CDT Hearing Evaluation Edilberto Hawley is a 65 y.o. male here today upon referral from Dr. Carson Wolff MD for concerns of hearing loss and tinnitus. Pure tone testing revealed a mild sloping to profound sensorineural hearing loss in the right ear. Pure tone testing revealed a moderate sloping to profound sensorineural hearing loss in the left ear. Speech board liner operator thresholds were in good agreement with puretone thresholds. These were obtained at 40 dBHL in the right ear, 40 dBHL in the left ear. Word recognition scores were good both ears. These were found at 84% in the right ear when presented at 80dBHL, 96% in the left ear when presented at 80dBHL. Tympanometry revealed normal in right ear, peak pressure and admittance. Tympanometry revealed normal in left ear, peak pressure and admittance. It isrecommended Edilberto follows up with Dr. Wolff. Anil Castro, CCC-A, FAAA Doctor of Audiology [facility] [address] [facility] [address] [facility] [phone] Dept: [phone] 06/05/21 documented in this encounter Plan of Treatment Not on file documented as of this encounter Goals Goal Patient Goal Type Associated Problems Recent Progress Patient-Stated? Author Blood Pressure < 140/90 Blood Pressure 134/86(2022 2:25 PM CDT) No Leonard Jasso, ANGIE documented as of this encounter Visit Diagnoses Diagnosis Sensory hearing loss, bilateral- Primary documented in this encounter Additional Health Concerns Assessment Noted Time A fall risk assessment has been complete d for the patient 04/16/2021 8:08 AM CDT documented as of this encounter Care Teams Experimental Flight Test Mechanic Relationship Specialty Start Date End Date Michell Trevizo MD [address] [place] [address] PCP - General Internal Medicine 05/29/21 02/25/22 Lacey Perdue MD [address] [place] [phone] Referring Physician Infectious Diseases 06/28/18 documented as of this encounter
--- OUTSIDE RECORDS SUMMARY | 2024-11-23 00:26 | XMS_ITS | Encounter Summary ---
Author Organization [employer] Address [address] [place] [address] Care Team Providers Care Meat Supervisor Name Role Phone Lacey Perdue MD Unavailable Leonard Jasso APRN Primary Care Provide r Encounter Details Date Type Department Care Team (Latest Contact Info) Description 12/11/2020 Travel Social History Tobacco Use Types Packs/Day [...] COVID-19? No / Unsure 12/11/2020 9:15 AM MASSAGE THERAPY INSTRUCTOR documented as of this encounter Functional [...] 2:00 PM JOHN Galvan Am y S, LINE OUT MAN * Do you have difficulty dressing or bathing? (5 years old or older) Answer Date of Assessment Author No 10/25/2017 2:00 PM JOHN Galvan Am y S, LINE OUT MAN * Because of a physical, mental, or emotional condition, do you have difficulty doing errands alone such as visiting a doctor's office or shopping? (15 years old or older) Answer Date of Assessment Author No 10/25/2017 2:00 PM JOHN Galvan Am y S, LINE OUT MAN documented as of this encounter Mental Status * Because of a physical, mental, or emotional condition, do you have serious difficulty concentrating, remembering, or making decisions? (5 years old or older) Answer Entry Date Author No 10/25/2017 2:00 PM JOHN Galvan Am y S, LINE OUT MAN documented in this encounter Plan of Treatment Not on file documented as of this encounter Goals Goal Patient Goal Type Associated Problems Recent Progress Patient-Stated? Author Blood Pressure < 140/90 Blood Pressure 134/86(2022 2:25 PM CDT) No Leonard Jasso APRN documented as of this encounter Visit Diagnoses Not on filedocumented in this encounter Care Teams Meat Supervisor Relationship Specialty Start Date End Date Leonard Jasso APRN [address] [facility] [address] [place] [address] PCP - General Family Medicine 08/15/19 04/30/21 Lacey Perdue MD [address] [facility] [address] [phone] Referring Physician Infectious Diseases 06/28/18 documented as of this encounter
--- OUTSIDE RECORDS SUMMARY | 2024-11-23 00:26 | XMS_ITS | Encounter Summary ---
Author Organization [facility] Address [address] [place] [address] Care Team Providers Care Wood Machine Carver Name Role Phone Lacey Perdue MD Unavailable [phone] Leonard Jasso APRN Primary Care Provide r Encounter Details Date Type Department Care Team (Latest Contact Info) Description 12/14/2020 8:15 AM CHURCH WORKER - 12/14/2020 11:59 PM CHURCH WORKER Hospital Encounter [facility] [address] [place] [address] Pre-op exam Discharge Disposition: Home - Discharge to Home [...] COVID-19? No / Unsure 12/11/2020 9:15 AM CHURCH WORKER documented as of this encounter Functional Status * Are you deaf or do you have serious difficulty hearing? Answer Date of Assessment Author No 10/25/2017 2:00 PM CHURCH WORKER Galvan, Am y S, RECEIVING TANK OPERATOR * Are you blind or do [...] this encounter Medications at Time of Discharge Ascorbic Acid (VITAMIN C) 500 MG tablet [...] tablet by mouth daily. 30 tablet 5 09/09/2020 1 baclofen (LIORESAL) 10 MG tablet Take 1 tablet by mouth 3 (three) times daily as needed (muscle spasms.). 90 tablet 06/04/2020 1 cefUROXime (CEFTIN) 500 MG tablet Take 1 tablet by mouth 2 (two) times daily. 20 tablet 12/11/2020 1 cetirizine (ZYRTEC) 10 MG tablet Take 1 tablet by mouth daily as needed for Allergies. 30 tablet 5 11/13/2020 1 diclofenac sodium (VOLTAREN) 50 MG EC tablet Take 1 tablet by mouth 2 (two) times daily. 60 tablet 5 09/09/2020 1 Diclofenac Sodium 1 % CREA Place onto the skin nightly as needed. 1 DULoxetine (CYMBALTA) 60 MG capsule Take 1 capsule by mouth daily. 30 capsule 5 09/25/2019 1 finasteride (PROSCAR) 5 MG tablet Take 5 mg by mouth daily. 1 NARCAN 4 MG/0.1ML LIQD nasal liquid USE DIRECTED. 2 each 1 01/15/2020 2 omeprazole 20 MG tablet Take 2 tablets by mouth every morning before breakfast. 60 tablet 5 11/13/2020 1 oxyCODONE-acetamin ophen (PERCOCET) 10-325 MG per tablet TAKE ONE TABLET EVERY SIX HOURS IF NEEDED FOR PAIN 120 tablet 11/12/2020 1 predniSONE (DELTASONE) 5 MG tablet Six oral day one, five oral day two, four oral day three, three oral day four, two oral day five, one oral day six. 21 tablet 12/11/2020 1 tamsulosin HCl (FLOMAX) 0.4 MG capsule Take 1 capsule by mouth daily. 30 capsule 5 11/04/2018 1 documented as of this encounter Plan of Treatment Not on file documented as of this encounter Goals Goal Patient Goal Type Associated Problems Recent Progress Patient-Stated? Author Blood Pressure < 140/90 Blood Pressure 134/86(2022 2:25 PM CDT) No Leonard Jasso, ANGIE documented as of this encounter Procedures Procedure Name Priority Date/Time Associated Diagnosis Comments CORONAVIRUS SARS-COV-2 MOLECULAR Timed 12/14/2020 8:15 AM CHURCH WORKER Pre-op exam documented in this encounter Results * CoronaVirus SARS CoV-2 PCR (12/14/2020 8:15 AM CHURCH WORKER) SARS-CoV-2 PCR NOT DETECTED NDET 12/15/2020 12:28 PM [facility] Comment: ---- A Not Detected result indicates that SARS-CoV-2 RNA is not present in the patient's specimen. This result may be influenced by the stage of the viral infection and the quality of the specimen collected for testing. Test results should be correlated in the clinical context of each patient. This assay utilizes the [employer] COVID-19 Combo Kit with RNA isolation performed on the Hojoki Purification System and RT PCR performed on the Armasight Real time PCR system. ?? TESTING PERFORMED AT [address] [address] The test was developed and its performance characteristics determined by [facility]. It has not been cleared or approved by the FDA. Such approval is not required for clinical implementation and the test results have been shown to be clinically useful. This laboratory is CAP accredited and CLIA certified to perform high complexity testing. Performed at [address] [address], ([phone], unless otherwise noted. FIRST TEST UNKNOWN 12/14/2020 3:26 PM [facility] EMPLOYED IN HEALTHCARE NO 12/14/2020 3:26 PM [facility] SYMPTOMATIC DEFINED BY CDC NO 12/14/2020 3:26 PM [facility] HOSPITALIZED NO 12/14/2020 3:26 PM [facility] ICU NO 12/14/2020 3:26 PM [facility] RESIDENT IN CONGREGATE SETTING NO 12/14/2020 3:26 PM [facility] NOT 12/14/2020 3:26 PM [facility] Blood specimen (specimen) NASOPHARYNGEAL SWAB / Unknown 12/14/2020 8:15 AM CHURCH WORKER 12/14/2020 3:33 PM [facility] us Siddhartha Loyd MD MICROBIOLOGY - GENERAL ORDERABL ES Final Result [facility] [address] [place], [place] [phone] [place] [address] [place] [address] [facility] [address] [place] [address] documented in this encounter Visit Diagnoses Diagnosis Pre-op exam Preoperative examination, unspecified documented in this encounter Care Teams Wood Machine Carver Relationship Specialty Start Date End Date Leonard Jasso APRN [address] [facility] [address] [place] [address] PCP - General Family Medicine 08/15/19 04/30/21 Lacey Perdue MD [address] [phone] Referring Physician Infectious Diseases 06/28/18 documented as of this encounter
--- OUTSIDE RECORDS SUMMARY | 2024-11-23 00:26 | XMS_ITS | Encounter Summary ---
Author Organization [facility] [employer] Address [address] [place] [address] Care Team Providers Care Transcribing Machine Mechanic Name Role Phone Lacey Perdue MD Unavailable [phone] Patient, None Per Primary Care Provider Unavaila ble Encounter Details Date Type Department Care Team (Latest Contact Info) Description 05/01/2021 Transcribe Orders [facility] [place] - ENT [address] [place] [address] Eve Ward, INDUSTRIAL ENGINEERING ANALYST [address] [place] [address] Dysphagia, unspecified type (Primary Dx); Gastroesophageal reflux disease, unspecified whether esophagitis present Social History Tobacco Use Types Packs/Day Years [...] Author No 10/25/2017 2:00 PM Deonna Padilla, DRAWING SUPERVISOR * Are you blind or do you have serious difficulty seeing, even when wearing glasses? Answer Date of Assessment Author No 10/25/2017 2:00 PM Deonna Padilla, DRAWING SUPERVISOR * Do you have serious difficulty walking or climbing stairs? (5 years old or older) Answer Date of Assessment Author No 10/25/2017 2:00 PM Deonna Padilla, DRAWING SUPERVISOR * Do you have difficulty dressing or bathing? (5 years old or older) Answer Date of Assessment Author No 10/25/2017 2:00 PM Deonna Padilla, DRAWING SUPERVISOR * Because of a physical, mental, or emotional condition, do you have difficulty doing errands alone such as visiting a doctor's office or shopping? (15 years old or older) Answer Date of Assessment Author No 10/25/2017 2:00 PM Deonna Padilla, DRAWING SUPERVISOR documented as of this encounter Mental Status [...] as of this encounter Visit Diagnoses Diagnosis Dysphagia, unspecified type- Primary Gastroesophageal reflux disease, unspecified whether esophagitis present documented in this encounter Additional Health Concerns Assessment Noted Time A fall risk assessment has been complete d for the patient 04/16/2021 8:08 AM CDT documented as of this encounter Care Teams Transcribing Machine Mechanic Relationship Specialty Start Date End Date Patient, None Per PCP - General 05/01/21 05/28/21 Lacey Perdue MD [address] [phone] Referring Physician Infectious Diseases 06/28/18 documented as of this encounter
--- OUTSIDE RECORDS SUMMARY | 2024-11-23 00:26 | XMS_ITS | Encounter Summary ---
Author Organization [employer] Address [address] [place] [address] Care Team Providers Care Vessel Builder Name Role Phone Lacey Perdue MD Unavailable Leonard Jasso APRN Primary Care Provide r Reason for Visit * Reason Onset Date Comments Medication Refill 01/10/2021 Encounter Details Date Type Department Care Team (Late st Contact Info) Description 01/10/[address] [address] Gisel Richardson, SUKUMAR [address] [facility] [address] [place] [address] Social History Tobacco Use Types Packs/Day Years [...] COVID-19? No / Unsure 12/18/2020 7:35 AM CAFE MANAGER documented as of this encounter Functional Status * Are you deaf or do you have serious difficulty hearing? Answer Date of Assessment Author No 10/25/2017 2:00 PM CAFE MANAGER Galvan, Am y S, APERTURE MASK ETCHER * Are you blind or do you have serious difficulty seeing, even when wearing glasses? Answer Date of Assessment Author No 10/25/2017 2:00 PM CAFE MANAGER Galvan, Am y S, APERTURE MASK ETCHER * Do you have serious difficulty walking or climbing stairs? (5 years old or older) Answer Date of Assessment Author No 10/25/2017 2:00 PM CAFE MANAGER Galvan, Am y S, APERTURE MASK ETCHER * Do you have difficulty dressing or bathing? (5 years old or older) Answer Date of Assessment Author No 10/25/2017 2:00 PM CAFE MANAGER Galvan, Am y S, APERTURE MASK ETCHER * Because of a physical, mental, or emotional condition, do you have difficulty doing errands alone such as visiting a doctor's office or shopping? (15 years old or older) Answer Date of Assessment Author No 10/25/2017 2:00 PM CAFE MANAGER Galvan, Am y S, APERTURE MASK ETCHER documented as of this encounter Mental Status * Because of a physical, mental, or emotional condition, do you have serious difficulty concentrating, remembering, or making decisions? (5 years old or older) Answer Entry Date Author No 10/25/2017 2:00 PM CAFE MANAGER Galvan, Am y S, APERTURE MASK ETCHER documented in this encounter Plan of Treatment Not on file documented as of this encounter Goals Goal Patient Goal Type Associated Problems Recent Progress Patient-Stated? Author Blood Pressure < 140/90 Blood Pressure 134/86(2022 2:25 PM CDT) No Leonard Jasso APRN documented as of this encounter Visit Diagnoses Not on filedocumented in this encounter Care Teams Vessel Builder Relationship Specialty Start Date End Date Leonard Jasso APRN [address] [facility] [address] [place] [address] PCP - General Family Medicine 08/15/19 04/30/21 Lacey Perdue MD [address] [phone] Referring Physician Infectious Diseases 06/28/18 documented as of this encounter
--- OUTSIDE RECORDS SUMMARY | 2024-11-23 00:26 | XMS_ITS | Encounter Summary ---
Author Organization [employer] Address [address] [place] [address] Care Team Providers Care Questioned Documents Examiner Name Role Phone Lacey Perdue MD Unavailable [phone] Leonard Jasso APRN Primary Care Provide r Reason for Visit * Reason Onset Date Comments Medication Refill 12/16/2020 Encounter Details Date Type Department Care Team (Late st Contact Info) Description 12/16/[address] [address] Gisel Richardson, SUKUMAR [address] [facility] [address] [place] [address] Social History Tobacco Use Types Packs/Day [...] COVID-19? No / Unsure 12/11/2020 9:15 AM SAFETY TEACHER documented as of this encounter Functional Status * Are you deaf or do you have serious difficulty hearing? Answer Date of Assessment Author No 10/25/2017 2:00 PM SAFETY TEACHER Galvan, Am y S, COMMUNITY THEATER ACTOR * Are you blind or do you have serious difficulty seeing, even when wearing glasses? Answer Date of Assessment Author No 10/25/2017 2:00 PM SAFETY TEACHER Galvan, Am y S, COMMUNITY THEATER ACTOR * Do you have serious difficulty walking or climbing stairs? (5 years old or older) Answer Date of Assessment Author No 10/25/2017 2:00 PM SAFETY TEACHER Galvan, Am y S, COMMUNITY THEATER ACTOR * Do you have difficulty dressing or bathing? (5 years old or older) Answer Date of Assessment Author No 10/25/2017 2:00 PM SAFETY TEACHER Galvan, Am y S, COMMUNITY THEATER ACTOR * Because of a physical, mental, or emotional condition, do you have difficulty doing errands alone such as visiting a doctor's office or shopping? (15 years old or older) Answer Date of Assessment Author No 10/25/2017 2:00 PM SAFETY TEACHER Galvan, Am y S, COMMUNITY THEATER ACTOR documented as of this encounter Mental Status * Because of a physical, mental, or emotional condition, do you have serious difficulty concentrating, remembering, or making decisions? (5 years old or older) Answer Entry Date Author No 10/25/2017 2:00 PM SAFETY TEACHER Nessa Galvan my S, COMMUNITY THEATER ACTOR documented in this encounter Plan of Treatment Not on file documented as of this encounter Goals Goal Patient Goal Type Associated Problems Recent Progress Patient-Stated? Author Blood Pressure < 140/90 Blood Pressure 134/86(2022 2:25 PM CDT) No Leonard Jasso APRN documented as of this encounter Visit Diagnoses Not on filedocumented in this encounter Care Teams Questioned Documents Examiner Relationship Specialty Start Date End Date Leonard Jasso APRN [address] [facility] [address] [place] [address] PCP - General Family Medicine 08/15/19 04/30/21 Lacey Perdue MD [address] [phone] Referring Physician Infectious Diseases 06/28/18 documented as of this encounter
--- OUTSIDE RECORDS SUMMARY | 2024-11-23 00:26 | XMS_ITS | Encounter Summary ---
Author Organization [employer] Address [address] [place] [address] Care Team Providers Care Customer Solutions Teammate Name Role Phone Lacey Perdue MD Unavailable [phone] Patient, None Per Primary Care Provider Unavaila ble Reason for Referral * Referral (Routine) - Closed Specialty Diagnoses / Procedures Referred By Celine almaguer Referred To Contact Plastic Surgery Diagnoses Left wrist pain Emmanuel Jefferson NP [address] [place] [address] Phone: tel: fax: Estevan Tripp MD [address] [place] [address] Phone: tel: fax: Referral ID Status Reason Start Date Expiration Date V isits Requested Visits Authorized [id number] Closed Specialty Services Required 05/15/2021 11/16/2022 1 1 Reason for Visit * Reason Onset Date Comments Wrist Pain 05/15/2021 Encounter Details Date Type Department Care Team (Late st Contact Info) Description 05/15/2021 Telephone [facility] [address] [place] [phone] Lynne Boudreaux, [place] [address] [place] [address] Wrist Pain Social History Tobacco Use Types Packs/Day Years [...] of Assessment Author No 10/25/2017 2:00 PM RESEARCH BIOLOGIST Cole Am y S, MAINTENANCE CONSTRUCTION HELPER * Are you blind or do you have serious difficulty seeing, even when wearing glasses? Answer Date of Assessment Author No 10/25/2017 2:00 PM RESEARCH BIOLOGIST Cole Am y S, MAINTENANCE CONSTRUCTION HELPER * Do you have serious difficulty walking or climbing stairs? (5 years old or older) Answer Date of Assessment Author No 10/25/2017 2:00 PM RESEARCH BIOLOGIST Deonna Galvan y S, MAINTENANCE CONSTRUCTION HELPER * Do you have difficulty dressing or bathing? (5 years old or older) Answer Date of Assessment Author No 10/25/2017 2:00 PM RESEARCH BIOLOGIST Cole Am y S, MAINTENANCE CONSTRUCTION HELPER * Because of a physical, mental, or emotional condition, do you have difficulty doing errands alone such as visiting a doctor's office or shopping? (15 years old or older) Answer Date of Assessment Author No 10/25/2017 2:00 PM RESEARCH BIOLOGIST Cole Am y S, MAINTENANCE CONSTRUCTION HELPER documented as of this encounter Mental Status * Because of a physical, mental, or emotional condition, do you have serious difficulty concentrating, remembering, or making decisions? (5 years old or older) Answer Entry Date Author No 10/25/2017 2:00 PM RESEARCH BIOLOGIST Deonna Galvan y S, MAINTENANCE CONSTRUCTION HELPER documented in this encounter Miscellaneous Notes * Telephone Encounter - Emmanuel Jefferson NP - 05/15/2021 2:05 PM CDT Agree with below recommendations. Thank you. Emmanuel Jefferson NP * Telephone Encounter - Lynne Boudreaux MA - 05/15/2021 1:42 PM CDT Patient in office for procedure with Emmanuel Jefferson NP complaining of left wrist pain. He states he previously had right carpal tunnel in the past. Referral placed to evaluate left wrist pain. Lynne Venegas MA documented in this encounter Plan of Treatment Scheduled Referrals Name Type Priority Associated Diagnoses Orde r Schedule Amb Ref to Plastic Surgery Outpatient Referral Routine Left wrist pain Ordered: 05/15/2021 documented as of this encounter Goals Goal Patient Goal Type Associated Problems Recent Progress Patient-Stated? Author Blood Pressure < 140/90 Blood Pressure 134/86(2022 2:25 PM CDT) No Leonard Jasso APRN documented as of this encounter Visit Diagnoses Diagnosis Left wrist pain- Primary Pain in joint, forearm documented in this encounter Additional Health Concerns Assessment Noted Time A fall risk assessment has been complete d for the patient 04/16/2021 8:08 AM CDT documented as of this encounter Care Teams Customer Solutions Teammate Relationship Specialty Start Date End Date Patient, None Per PCP - General 05/01/21 05/28/21 Lacey Perdue MD [address] [phone] Referring Physician Infectious Diseases 06/28/18 documented as of this encounter
--- OUTSIDE RECORDS SUMMARY | 2024-11-23 00:26 | XMS_ITS | Encounter Summary ---
Author Organization [employer] Address [address] [place] [address] Care Team Providers Care Cloth Wire Weaver Name Role Phone Lacey Perdue MD Unavailable Leonard Jasso APRN Primary Care Provide r Reason for Visit * Reason Comments Medication Refill Encounter Details Date Type Department Care Team (Late st Contact Info) Description 03/10/[address] [address] Leonard Jasso, ANGIE [address] [place] [address] Social History Tobacco Use Types Packs/Day Years [...] of Assessment Author No 10/25/2017 2:00 PM SAP BUSINESS OBJECTS CONSULTANT Galvan, Am y S, HEARING AID DISPENSER * Are you blind or do you have serious difficulty seeing, even when wearing glasses? Answer Date of Assessment Author No 10/25/2017 2:00 PM SAP BUSINESS OBJECTS CONSULTANT Galvan, Am y S, HEARING AID DISPENSER * Do you have serious difficulty walking or climbing stairs? (5 years old or older) Answer Date of Assessment Author No 10/25/2017 2:00 PM SAP BUSINESS OBJECTS CONSULTANT Galvan, Am y S, HEARING AID DISPENSER * Do you have difficulty dressing or bathing? (5 years old or older) Answer Date of Assessment Author No 10/25/2017 2:00 PM SAP BUSINESS OBJECTS CONSULTANT Galvan, Am y S, HEARING AID DISPENSER * Because of a physical, mental, or emotional condition, do you have difficulty doing errands alone such as visiting a doctor's office or shopping? (15 years old or older) Answer Date of Assessment Author No 10/25/2017 2:00 PM SAP BUSINESS OBJECTS CONSULTANT Galvan, Am y S, HEARING AID DISPENSER documented as of this encounter Mental Status * Because of a physical, mental, or emotional condition, do you have serious difficulty concentrating, remembering, or making decisions? (5 years old or older) Answer Entry Date Author No 10/25/2017 2:00 PM SAP BUSINESS OBJECTS CONSULTANT Galvan, Am y S, HEARING AID DISPENSER documented in this encounter Plan of Treatment Not on file documented as of this encounter Goals Goal Patient Goal Type Associated Problems Recent Progress Patient-Stated? Author Blood Pressure < 140/90 Blood Pressure 134/86(2022 2:25 PM CDT) No Leonard Jasso APRN documented as of this encounter Visit Diagnoses Not on filedocumented in this encounter Care Teams Cloth Wire Weaver Relationship Specialty Start Date End Date Leonard Jasso APRN [address] [facility] [address] [place] [address] PCP - General Family Medicine 08/15/19 04/30/21 Lacey Perdue MD [address] [phone] Referring Physician Infectious Diseases 06/28/18 documented as of this encounter
--- OUTSIDE RECORDS SUMMARY | 2024-11-23 00:26 | XMS_ITS | Encounter Summary ---
Author Organization [employer] Address [address] [place] [address] Care Team Providers Care Labor Delivery Specialist Name Role Phone Lacey Perdue MD Unavailable [phone] Michell Trevizo MD Primary Care Provider [phone] Encounter Details Date Type Department Care Team (Late st Contact Info) Description 06/05/2021 Documentation [facility] [address] [place] [address] Carson Wolff MD [address] [place] [address] Social History Tobacco Use Types [...] 2:00 PM JOHN Galvan Am y S, FOREIGN CAR MECHANIC * Are you blind or do you have serious difficulty seeing, even when wearing glasses? Answer Date of Assessment Author No 10/25/2017 2:00 PM JOHN Galvan Am y S, FOREIGN CAR MECHANIC * Do you have serious difficulty walking or climbing stairs? (5 years old or older) Answer Date of Assessment Author No 10/25/2017 2:00 PM JOHN Galvan Am y S, FOREIGN CAR MECHANIC * Do you have difficulty dressing or bathing? (5 years old or older) Answer Date of Assessment Author No 10/25/2017 2:00 PM JOHN Galvan Am y S, FOREIGN CAR MECHANIC * Because of a physical, mental, or emotional condition, do you have difficulty doing errands alone such as visiting a doctor's office or shopping? (15 years old or older) Answer Date of Assessment Author No 10/25/2017 2:00 PM Deonna Padilla S, FOREIGN CAR MECHANIC documented as of this encounter Mental Status * Because of a physical, mental, or emotional condition, do you have serious difficulty concentrating, remembering, or making decisions? (5 years old or older) Answer Entry Date Author No 10/25/2017 2:00 PM Deonna Padilla S, FOREIGN CAR MECHANIC documented in this encounter Progress Notes * Carson Wolff MD - 06/05/2021 11:[address] sinus (05/26/2021) - images and report reviewed: Right septal deviation. Bilateral inferior turbinate hypertrophy. Large maxillary accessory ostia vs sinus surgery changes. Mucosal thickening in bilateral maxillary sinuses. Mucosal thickening in scattered ethmoid sinuses. Mucosal thickening on face of bilateral sphenoid sinuses. 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 Will discuss with him in follow up. Carson Wolff M.D., Ph.D. Pediatric and General Otolaryngology [facility] documented in this encounter Plan of Treatment [...] documented as of this encounter Care Teams Labor Delivery Specialist Relationship Specialty Start Date End Date Michell Trevizo MD [facility] [place] [address] PCP - General Internal Medicine 05/29/21 02/25/22 Lacey Perdue MD [address] [phone] Referring Physician Infectious Diseases 06/28/18 documented as of this encounter
--- OUTSIDE RECORDS SUMMARY | 2024-11-23 00:26 | XMS_ITS | Encounter Summary ---
Author Organization [facility] Address [address] [place] [address] Care Team Providers Care Photogrammetric Engineer Name Role Phone Lacey Perdue MD Unavailable [phone] Michell Trevizo MD Primary Care Provider [phone] Encounter Details Date Type Department Care Team (Late st Contact Info) Description 06/10/2021 Orders Only [facility] Centralized Scanning Debby Robledo, AuD Social History Tobacco Use Types Packs/Day Years [...] No 10/25/2017 2:00 PM Deonna Padilla, DIRECTOR ORANGE * Do you have serious difficulty walking or climbing stairs? (5 years old or older) Answer Date of Assessment Author No 10/25/2017 2:00 PM Deonna Padilla, DIRECTOR ORANGE * Do you have difficulty dressing or bathing? (5 years old or older) Answer Date of Assessment Author No 10/25/2017 2:00 PM Deonna Padilla, DIRECTOR ORANGE * Because of a physical, mental, or emotional condition, do you have difficulty doing errands alone such as visiting a doctor's office or shopping? (15 years old or older) Answer Date of Assessment Author No 10/25/2017 2:00 PM Deonna Padilla DIRECTOR ORANGE documented as of this encounter Mental Status * Because of a physical, mental, or emotional condition, do you have serious difficulty concentrating, remembering, or making decisions? (5 years old or older) Answer Entry Date Author No 10/25/2017 2:00 PM Deonna Padilla, DIRECTOR ORANGE documented in this encounter Plan of Treatment Not on file documented as of this encounter Goals Goal Patient Goal Type Associated Problems Recent Progress Patient-Stated? Author Blood Pressure < 140/90 Blood Pressure 134/86(2022 2:25 PM CDT) No Leonard Jasso APRN documented as of this encounter Procedures Procedure Name Priority Date/Time Associated Diagnosis Comments [place] TYMPANOMETRY Routine 06/05/2021 COMPREHENSIVE HEARING TEST Routine 06/05/2021 documented in this encounter Results * Tympanometry (06/05/2021) Debby Ma AUDIOLOGY SERVICES ORDERAB LES Final Result * Comprehensive hearing test (06/05/2021) Debby Ma AUDIOLOGY SERVICES ORDERAB LES Final Result documented in this encounter Visit Diagnoses Not on filedocumented in this encounter Additional Health Concerns Assessment Noted Time A fall risk assessment has been complete d for the patient 04/16/2021 8:08 AM CDT documented as of this encounter Care Teams Photogrammetric Engineer Relationship Specialty Start Date End Date Michell Trevizo MD [address] [place] [address] PCP - General Internal Medicine 05/29/21 02/25/22 Lacey Perdue MD [address] [phone] Referring Physician Infectious Diseases 06/28/18 documented as of this encounter
--- OUTSIDE RECORDS SUMMARY | 2024-11-23 00:26 | XMS_ITS | Encounter Summary ---
Author Organization [facility] Address [address] [place] [address] Care Team Providers Care Changer Fixer Name Role Phone Lacey Perdue MD Unavailable [phone] Leonard Jasso APRN Primary Care Provide r Reason for Visit * Reason Comments Sinus Problem * Referral (Routine) - Closed Specialty Diagnoses / Procedures Referred By Contjessica t Referred To Contact Otolaryngology Diagnoses Dysphasia Leonard Jasso, TEST BORER HELPER [address] [place] [address] Phone: tel: fax: Carson Wolff MD [address] [place] [address] Phone: tel: fax: Referral ID Status Reason Start Date Expiration Date V isits Requested Visits Authorized [id number] Closed Specialty Services Required 01/29/2021 01/29/2022 1 1 Encounter Details Date Type Department Care Team (Late st Contact Info) Description 04/07/2021 2:30 PM CDT Initial consult [facility] - ENT [address] [place] [address] [address] [place] [address] Leonard Jasso, TEST BORER HELPER [address] [place] [address] Carson Wolff MD [address] [place] [address] Sinusitis, unspecified chronicity, unspecified location (Primary Dx); Dysphagia, unspecified type; Gastroesophageal reflux disease, unspecified whether esophagitis present; Recurrent sinusitis; Nasal septal deviation; Hypertrophy of both inferior nasal turbinates; Tinnitus of both ears Social History Tobacco Use Types Packs/Day Years [...] Author No 10/25/2017 2:00 PM Deonna Padilla, WORK OVER RIG OPERATOR * Do you have serious difficulty walking or climbing stairs? (5 years old or older) Answer Date of Assessment Author No 10/25/2017 2:00 PM Deonna Padilla, WORK OVER RIG OPERATOR * Do you have difficulty dressing or bathing? (5 years old or older) Answer Date of Assessment Author No 10/25/2017 2:00 PM Deonna Padilla, WORK OVER RIG OPERATOR * Because of a physical, mental, [...] Progress Notes * Carson Wolff MD - 04/07/2021 2:30 PM CDT Subjective: Edilberto Hawley is a 65 y.o. male who is here for sinusitis and hoarseness. Referred by Leonard Jasso NP. HPI: Se is having sinus problems and hoarseness. Se has had esophageal biopsies due to severe heartburn. Se does take omeprazole for his acid reflux. Se's main sinus symptoms include the need to blow his nose, runny nose, thick nasal discharge, and post nasal drainage. Se is able to breathe through his nose. Se feels that he can breathe better out of the left side of his nose. Se also has tinnitus bilaterally. Se feels he gets sinus infections often, at least once a month. Se does get on antibiotics. Se has seasonal allergies. He feels allergies affect him all year round. Se has tried Flonase, but discontinued this due to getting nosebleeds. Se has a history or drug use, and this has affected his sinuses. Se does not eat or drink anything with salt. The salt intake causes him to cough a lot. Se states that he also suffers from dry mouth. Patient denies dysphagia, dyspnea, hoarseness, unintentional weight loss, otalgia, fevers, chills, night sweats. Se states that he at bedtime trouble eating and drinking at times. Se has not had any previous swallow studies, but would like to have his swallowing evaluated. No previous nose or sinus surgery. Patient Active Problem List Diagnosis ??? Acute [...] of left rotator cuff ??? Hyperlipidemia ??? 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 Osteoarthritis of lumbar spine ??? Pain of left lower extremity ??? Sciatica Past Medical History: Diagnosis Date ??? Arthritis ??? Back injury ??? Chronic back pain greater than 3 months duration ??? GERD (gastroesophageal reflux disease) ??? Migraines ??? Osteomyelitis of ankle or foot, acute, right ([facility]) 2018 Stepped on nail ??? Shoulder injury ??? Substance abuse ([facility]) cocaine, crystal meth nothing since 1996 ??? Wrist disorder R frzn wrist, 2 screws Past Surgical History: Procedure Laterality Date ??? Colonoscopy w/ polypectomy 12/07/2018 ??? Elbow surgery Left metal plate from elbow to forearm ??? Esophagogastroduodenoscopy 12/18/2020 ??? Fracture surgery Left no sx ??? Incision and drainage foot Right Infection right foot and ankle ??? Joint replacement Left Left hip replacement ??? Rotator cuff repair Left ??? Shoulder surgery Right repair tendon ??? Spine surgery 3 4 5 lumbar, pinched nerves Family History Problem Relation Age of Onset ??? Dementia Mother No Known Allergies Social History Tobacco use: no Alcohol use: no Review of Systems: Cardiac - negative Pulmonary - negative GI - negative HEENT - as per HPI Exam: Physical Exam Appearance: normal Communication: normal Head/Face: inspection - normal palpation - normal salivary glands - normal facial strength - Normal, HB I/ Skin: normal Ocular Motility: normal Ears: auricle (AD) - normal EAC (AD) - normal TM (AD) - normal auricle () - normal EAC () - normal TM () - tympanoslcerosis Nose: ext. inspection - normal int. inspection - right inferior septal spur, right maxillary accessory os, left septal deviation, left maxillary accessory os, no thick mucous, no nasal polyps, bilateral inferior turbinate hypertrophy Nasopharynx: normal Oral Cavity: lips - normal dentition - edentulous mucosa - normal hard palate - normal Oropharynx: mucosa - normal soft palate - normal tonsils - surgically absent Hypopharynx: normal Larynx: mucosa - normal TVF mobility - normal Neck: mass - normal thyroid - normal Lymphatic: normal Cardiovascular: normal Respiratory: normal Neuro/Psych.: mood/affect - normal mental status - normal cranial nerves - normal Flexible fiberoptic nasal endoscopy, nasopharyngoscopy, laryngoscopy: Verbal consent was obtained. The nasal cavity was prepped with an aerosolized solution of topical anesthetic and vasoconstrictiveagent. The scope was passed through the anterior nasal cavity and advanced. Bilateral nasal passages examined. Inspection of the nasopharynx revealed no gross abnormality. Inspection of the larynx revealed bilaterally mobile vocal cords. Pyriform sinuses are symmetric. No intra-arytenoid irregularities noted. The epiglottis, aryepiglottic folds, vallecula and base of tongue are unremarkable. The airway is patent. Procedure tolerated well with no immediate complications noted. Data Review: SNOT-22 Score (04/07/2021) = 34 Assessment/Orders: Diagnoses and all orders for this visit: Sinusitis, unspecified chronicity, unspecified location - amoxicillin-clavulanate (AUGMENTIN) 875-125 MG per tablet; Take 1 tablet by mouth 2 (two) times daily for 21 days. - CT Maxillofacial wo Contrast; Future Dysphagia, unspecified type - NEUROSURGEON-Video swallow study; Future Gastroesophageal reflux disease, unspecified whether esophagitis present Recurrent sinusitis Nasal septal deviation Hypertrophy of both inferior nasal turbinates Tinnitus of both ears Edilberto Hawley is a 65 y.o. male who is here for sinusitis and hoarseness. He has recurrent/chronic sinusitis. Reports sinus infections almost every month. Tend to get betterwith antibiotics. Gets a lot of post nasal drainage. No previous nose/sinus surgery. He does have history of intranasal drug use, but stopped many years ago. Nasal obstruction that alternates from side to side. Exam shows right inferior spur, left septal deviation, bilateral inferior turbinate hypertrophy, accessory maxillary ostia bilaterally. Will treat with Augmentin x 3 weeks and appropriate medical therapy (oral antihistamine, nasal steroid spray, saline sinus lavages). CT sinus in 6 weeksand then follow up. Hoarse voice. Acid reflux. On omeprazole. Normal laryngoscopy today. Dysphagia. Will get video swallow with speech therapy referral. Tinnitus, history of loud noise exposure through work. Will get audiology evaluation and will re-examine ears with microscope at next clinic visit. 1. Sinusitis, unspecified chronicity, unspecified location amoxicillin- clavulanate (AUGMENTIN) 875-[address] Maxillofacial wo Contrast 2. Dysphagia, unspecified type NEUROSURGEON-Video swallow study 3. Gastroesophageal reflux disease, unspecified whether esophagitis present 4. Recurrent sinusitis 5. Nasal septal deviation 6. Hypertrophy of both inferior nasal turbinates 7. Tinnitus of both ears Plan: - Maximal medical therapy (oral antihistamine, nasal steroid spray, saline sinus lavages) - Augmentin twice daily for 21 days - [facility] beam CT 6 weeks - Follow up in [place] with audio/tymps first (30 min) - Referral for swallow study, to be done in [place] Carson Wolff M.D., Ph.D. Pediatric and General Otolaryngology [facility] documented in this encounter Plan of Treatment Not on file documented as of this encounter Goals Goal Patient Goal Type Associated Problems Recent Progress Patient-Stated? Author Blood Pressure < 140/90 Blood Pressure 134/86(2022 2:25 PM CDT) No Leonard Jasso APRN documented as of this encounter Visit Diagnoses Diagnosis Sinusitis, unspecified chronicity, unspecified location- Primary Dysphagia, unspecified type Gastroesophageal reflux disease, unspecified whether esophagitis present Recurrent sinusitis Unspecified sinusitis (chronic) Nasal septal deviation Deviated nasal septum Hypertrophy of both inferior nasal turbinates Hypertrophy of nasal turbinates Tinnitus of both ears Unspecified tinnitus documented in this encounter Care Teams Changer Fixer Relationship Specialty Start Date End Date Leonard Jasso APRN [address] [facility] [address] [place] [address] PCP - General Family Medicine 08/15/19 04/30/21 Lacey Perdue MD [address] [phone] Referring Physician Infectious Diseases 06/28/18 documented as of this encounter
--- OUTSIDE RECORDS SUMMARY | 2024-11-23 00:26 | XMS_ITS | Encounter Summary ---
Author Organization [facility] Address [address] [place] [address] Care Team Providers Care Gas Pit Worker Name Role Phone Lacey Perdue MD Unavailable [phone] Leonard Jasso APRN Primary Care Provide r Reason for Visit * Reason Comments Medication Refill Encounter Details Date Type Department Care Team (Late st Contact Info) Description 04/07/[address] [address] Leonard Jasso, ANGIE [address] [place] [id number] Social History Tobacco Use Types Packs/Day [...] Author No 10/25/2017 2:00 PM Deonna Padilla, MAGAZINE FEEDER * Are you blind or do you have serious difficulty seeing, even when wearing glasses? Answer Date of Assessment Author No 10/25/2017 2:00 PM Deonna Padilla, MAGAZINE FEEDER * Do you have serious difficulty walking or climbing stairs? (5 years old or older) Answer Date of Assessment Author No 10/25/2017 2:00 PM Deonna Padilla, MAGAZINE FEEDER * Do you have difficulty dressing or bathing? (5 years old or older) Answer Date of Assessment Author No 10/25/2017 2:00 PM Deonna Padilla, MAGAZINE FEEDER * Because of a physical, mental, or emotional condition, do you have difficulty doing errands alone such as visiting a doctor's office or shopping? (15 years old or older) Answer Date of Assessment Author No 10/25/2017 2:00 PM Deonna Padilla, MAGAZINE FEEDER documented as of this encounter Mental Status [...] on filedocumented in this encounter Care Teams Gas Pit Worker Relationship Specialty Start Date End Date Leonard Jasso APRN [address] [facility] [address] [place] [address] PCP - General Family Medicine 08/15/19 04/30/21 Lacey Perdue MD [address] [phone] Referring Physician Infectious Diseases 06/28/18 documented as of this encounter
--- OUTSIDE RECORDS SUMMARY | 2024-11-23 00:26 | XMS_ITS | Encounter Summary ---
Author Organization [facility] Address [address] [place] [address] Care Team Providers Care Wire Rope Sales Representative Name Role Phone Lacey Perdue MD Unavailable [phone] Michell Trevizo MD Primary Care Provider [phone] Encounter Details Date Type Department Care Team (Latest Contact Info) Description 05/29/2021 Travel Social History Tobacco Use Types Packs/Day [...] of Assessment Author No 10/25/2017 2:00 PM STAFF MECHANICAL ENGINEER Galvan, Am y S, OIL DEVELOPER * Do you have serious difficulty walking or climbing stairs? (5 years old or older) Answer Date of Assessment Author No 10/25/2017 2:00 PM Deonna Padilla S, OIL DEVELOPER * Do you have difficulty dressing or bathing? (5 years old or older) Answer Date of Assessment Author No 10/25/2017 2:00 PM Deonna Padlila S, OIL DEVELOPER * Because of a physical, mental, or emotional condition, do you have difficulty doing errands alone such as visiting a doctor's office or shopping? (15 years old or older) Answer Date of Assessment Author No 10/25/2017 2:00 PM JOHN Galvan Am y S, OIL DEVELOPER documented as of this encounter Mental Status * Because of a physical, mental, or emotional condition, do you have serious difficulty concentrating, remembering, or making decisions? (5 years old or older) Answer Entry Date Author No 10/25/2017 2:00 PM Deonna Padilla, OIL DEVELOPER documented in this encounter Plan of Treatment [...] documented as of this encounter Care Teams Wire Rope Sales Representative Relationship Specialty Start Date End Date Michell Trevizo MD [address] [place] [address] PCP - General Internal Medicine 05/29/21 02/25/22 Lacey Perdue MD [facility] [phone] Referring Physician Infectious Diseases 06/28/18 documented as of this encounter
--- OUTSIDE RECORDS SUMMARY | 2024-11-23 00:26 | XMS_ITS | Encounter Summary ---
Author Organization [facility] Address [address] [place] [address] Care Team Providers Care Cathode Maker Name Role Phone Lacey Perdue MD Unavailable [phone] Michell Trevizo MD Primary Care Provider [phone] Reason for Visit * Reason Onset Date Comments Results 05/30/2021 Encounter Details Date Type Department Care Team (Late st Contact Info) Description 05/30/2021 Telephone [facility] Internal Medicine [address] [place] [address] Clarice Stevens RN [address] [place] [address] Results Social History Tobacco Use Types Packs/Day [...] of Assessment Author No 10/25/2017 2:00 PM EPILEPSY PHYSICIAN Galvan, Am y S, REVENUE COORDINATOR * Are you blind or do you have serious difficulty seeing, even when wearing glasses? Answer Date of Assessment Author No 10/25/2017 2:00 PM EPILEPSY PHYSICIAN Galvan, Am y S, REVENUE COORDINATOR * Do you have serious difficulty walking or climbing stairs? (5 years old or older) Answer Date of Assessment Author No 10/25/2017 2:00 PM EPILEPSY PHYSICIAN Galvan, Am y S, REVENUE COORDINATOR * Do you have difficulty dressing or bathing? (5 years old or older) Answer Date of Assessment Author No 10/25/2017 2:00 PM EPILEPSY PHYSICIAN Galvan, Am y S, REVENUE COORDINATOR * Because of a physical, mental, or emotional condition, do you have difficulty doing errands alone such as visiting a doctor's office or shopping? (15 years old or older) Answer Date of Assessment Author No 10/25/2017 2:00 PM EPILEPSY PHYSICIAN Galvan, Am y S, REVENUE COORDINATOR documented as of this encounter Mental Status * Because of a physical, mental, or emotional condition, do you have serious difficulty concentrating, remembering, or making decisions? (5 years old or older) Answer Entry Date Author No 10/25/2017 2:00 PM JOHN Galvan, Am y S, REVENUE COORDINATOR documented in this encounter Miscellaneous Notes * Telephone Encounter - Clarice Stevens RN - 05/30/2021 11:32 AM CDT Call to pt. And spoke with and she VU and will tell Se and f/u as scheduled appt. With doctor. Clarice Stevens RN * Telephone Encounter - Clarice Stevens RN - 05/30/2021 11:31 AM CDT ----- Message from Michell Trevizo MD sent at 05/30/2021 11:08 AM CDT ----- Lab results have been reviewed. Will discuss with patient in further detail at next appt. Please have printed copy ready for patient to receive at next visit. Thank you. Please call and inform Liver enzymes elevated - avoid excessive tyelenol/acetaminophen and percocet as these can elevate liver enzymes A1C signifies diagnosis of diabetes - avoid excessive carbohydrates and sugars Cholesterol elevated - avoid fatty foods documented in this encounter Plan of Treatment [...] documented as of this encounter Care Teams Cathode Maker Relationship Specialty Start Date End Date Michell Trevizo MD [address] [place] [address] PCP - General Internal Medicine 05/29/21 02/25/22 Lacey Perdue MD [address] [phone] Referring Physician Infectious Diseases 06/28/18 documented as of this encounter
--- OUTSIDE RECORDS SUMMARY | 2024-11-23 00:26 | XMS_ITS | Encounter Summary ---
Author Organization [facility] Address [address] [place] [address] Care Team Providers Care Dental Floss Packer Name Role Phone Lacey Perdue MD Unavailable [phone] Patient, None Per Primary Care Provider Unavaila ble Reason for Referral * Diagnostic Radiology (Routine) - Closed Specialty Diagnoses / Procedures Referred By Celine almaguer Referred To Contact Radiology Diagnoses Myofascial muscle pain Procedures US Guided Needle Placement Emmanuel Jefferson NP [address] [place] [address] Phone: tel: fax: Referral ID Status Reason Start Date Expiration Date Visits Re quested Visits Authorized [id number] Closed 05/15/2021 11/16/2022 1 1 Reason for Visit * Reason Comments Injections * Injections (Routine) - Closed Specialty Diagnoses / Procedures Referred By Celine almaguer Referred To Contact Pain Medicine Diagnoses Myofascial muscle pain Procedures FL INJECT TRIGGER POINTS, > 3 FL SONO GUIDE NEEDLE BIOPSY C TPIs 05/22/21 Emmanuel Jefferson, ALFONSO [address] [place] [address] Phone: tel: fax: Emmanuel Jefferson NP [address] [place] [address] Phone: tel: fax: Referral ID Status Reason Start Date Expiration Date Visits Re quested Visits Authorized [id number] Closed 04/23/2021 04/23/2022 1 1 Encounter Details Date Type Department Care Team (Late st Contact Info) Description 05/15/2021 8:50 AM CDT Procedure visit [facility] [address] [place] [address] Emmanuel Jefferson, PROOF SORTER [address] [place] [address] Myofascial muscle pain (Primary Dx) Social History Tobacco Use [...] Sign Reading Time Taken Comments Blood Pressure 152/94 05/15/2021 9:06 AM CDT pos t proc Pulse 91 05/15/2021 8:43 AM CDT Temperature 37.2 ??C (98.9 ??F) 05/15/2021 8:43 AM CD T Respiratory Rate - - Oxygen Saturation 95% 05/15/2021 8:43 AM CDT Inhaled Oxygen Concentration - - [...] * Patient Instructions* Maris Linder RN - 05/15/2021 8:50 AM CDT Post Procedure Discharge Instructions ACTIVITY: [...] Progress Notes * Maris Linder RN - 05/15/2021 8:50 AM CDT Patient is here for a procedure. Patient denies any recent fevers, antibiotics, or steroids. Patient denies taking blood thinners except ASA. Patient has not had the COVID-19 vaccination within the last two weeks. Patient denies having an allergy to chlorhexidine, Hibiclens, contrast, or latex. Customer Resource Specialist: * Edilberto Gann MD - 05/15/2021 8:50 AM CDT I have reviewed the notes, assessments, and/or procedures performed by Emmanuel Jefferson NP, and I concur with her documentation of Edilberto Hawley. documented in this encounter Procedure Notes * Emmanuel Jefferson NP - 05/15/2021 8:50 AM CDTAssociated Order(s): Trigger point injection, >3 () Post-Procedure Diagnose(s): Myofascial muscle pain Trigger point injection, >3 (12750) Date/Time: 05/15/2021 8:36 AM Performed by: Emmanuel Jefferson NP Authorized by: Emmanuel Jefferson NP [place] Protocol: Verbal consent obtained?: Yes Written consent obtained?: Yes Risks and benefits: Risks, benefits and alternatives were discussed Consent given by: Patient Patient states understanding of procedure being performed: Yes Patient's understanding of procedure matches consent: Yes Procedure consent matches procedure scheduled: Yes Relevant documents present and verified: Yes Site marked: Yes Patient identity confirmed: Verbally with patient and provided demographic data Time out: Immediately prior to the procedure a time out was called (A time out verifies correct patient, procedure, equipment, administrative support associate and site/side marked as required.) Preparation: Preparation: Patient was prepped and draped in usual sterile fashion Anesthesia: Local anesthesia used?: No Sedation: Patient sedated: No Post-procedure: Patient tolerance: Patient tolerated the procedure well with no immediate complications Procedure: Bilateral Trigger Point Injection, 8 muscles (Right and Left Splenius Capitus, Levator Scapulae, Trapezius, and Rhomboids), with ultrasound guidance. Medical Necessity: Edilberto Hawley is a 65 y.o.male with chronic right and left neck and upper back pain with active trigger points and myofascial pain syndrome in the muscles described above. The patient has had limited response to conservative management that included medications and therapy. The full independence of activities of daily living is limited by pain; as such the patient's quality of life is dimin ished. Preoperative Diagnosis: Muscle Spasms Myofascial Pain Syndrome Post Operative Diagnosis Same as above Procedure Technique: All risks, benefits, and alternatives were discussed. The patient stated understanding of these andan informed consent was obtained. The patient was positioned to expose the active trigger points. Atime out was performed by the nurse/budget assistant and provider in the room with attention directed to the patient's full name, , and allergy information. Next, the patient's symptomatic area was palpated and trigger points were marked. Next the area was was prepped and draped with Hibiclens in the usual sterile fashion. While wearing gloves, the marked trigger points (as described above) were individually identified with ultrasound guidance for proper needle placement and then injected with equally divided amounts of a 10 mL steroid mixture containing 40 mg of Kenalog with the remaining volumeof equal ratio of 0.5% bupivacaine and 1% lidocaine using a 1 inch 25 gauge needle in a fan like distribution at each trigger point area after aspiration was negative for heme, air, or fluid. Patient reported no pain or parasthesias with any of the above injections, denied dyspnea or cough and noted no metallic taste in the mouth or ringing in the ears. All needles were removed and the injection sites were cleaned and bandages were applied. Outcome/Post Operative Education: The patient tolerated this procedure well. Following the procedure the reduction in pain score was documented in the chart. A written discharge form with our contact information was given to the patient. Additionally, the patient was told that if fever/chills or increasing pain at the sites of injection developed, to contact our office and/or report to the nearest emergency department. Otherwise, the patient was to follow up with our clinic as needed. Ultrasound images were transferred to the patients permanent medical record. Pain Assessment Pain Score: 9 (pre proc) Pain Assessment Pain Score: 7 (post proc) - The patient is to report back to us the efficacy of the injection by calling in 1-2 weeks or as needed, otherwise by following up as scheduled or as needed with results of pain and function. We will consider addressing the other contributions to the patient's pain if the trigger point injection is of limited value. Continue with remaining plan as described at last clinic visit. This document was dictated using Iggli; dairy scientist variances may occur. documented in this encounter Plan of Treatment Not on file documented as of this encounter Goals Goal Patient Goal Type Associated Problems Recent Progress Patient-Stated? Author Blood Pressure < 140/90 Blood Pressure 134/86(2022 2:25 PM CDT) No Leonard Jasso APRN documented as of this encounter Procedures Procedure Name Priority Date/Time Associated Diagnosis Comments US GUIDED NEEDLE PLACEMENT Routine 05/15/2021 9:14 AM CDT Myofascial muscle pain FL INJECT TRIGGER POINTS, > 3 Routine 05/15/2021 8:36 AM CDT Myofascial muscle pain documented in this encounter Results * US Guided Needle Placement (05/15/2021 9:14 AM CDT) Anatomical Region Laterality Modality Ultrasound Narrative 05/15/2021 9:14 AM CDT See Office Visit for documentation. Emmanuel Jefferson NP IMG PRO US ORDERABLES Final Re sult * FL INJECT TRIGGER POINTS, > 3 (05/15/2021 8:36 AM CDT) Narrative Emmanuel Jefferson NP - 05/15/2021 8:36 AM CDT Emmanuel Jefferson NP ? 05/15/2021 10:01 AM Trigger point injection, >3 () Date/Time: 05/15/2021 8:36 AM Performed by: Emmanuel Jefferson NP Authorized by: Emmanuel Jefferson NP [place] Protocol: ?Verbal consent obtained?: Yes ?Written consent obtained?: Yes ?Risks and benefits: Risks, benefits and alternatives were discussed ?Consent given by: ??Patient ??Patient states understanding of procedure being performed: Yes ?Patient's understanding of procedure matches consent: Yes ?Procedure consent matches procedure scheduled: Yes ?Relevant documents present and verified: Yes ?Site marked: Yes ?Patient identity confirmed: ??Verbally with patient and provided demographic data ??Time out: Immediately prior to the procedure a time out was called ?(A time out verifies correct patient, procedure, equipment, administrative support associate and site/side marked as required.) Preparation: ?Preparation: Patient was prepped and draped in usual sterile fashion ?? Anesthesia: ??Local anesthesia used?: No ?? Sedation: ?Patient sedated: No ?? Post-procedure: ??Patient tolerance: ??Patient tolerated the procedure well with no immediate complications Emmanuel Jefferson NP PROCEDURE/MINOR SURGICAL ORDER RASHMI Final Result documented in this encounter Visit Diagnoses Diagnosis Myofascial muscle pain- Primary Mylagia and myositis, unspecified documented in this encounter Administered Medications Inactive Administered Medications - up to 3 most recent administrations Medication Order MAR Action Action Date Dose Rate Site triamcinolone acetonide (KENALOG-40) injection 40 mg, Intramuscular, ONCE, On Kaycee 05/15/21 at 1030, For 1 doseIndications:Myofascial muscle pain Given 05/15/2021 10:00 AM CDT 40 mg Othe r documented in this encounter Additional Health Concerns Assessment Noted Time A fall risk assessment has been complete d for the patient 04/16/2021 8:08 AM CDT documented as of this encounter Care Teams Dental Floss Packer Relationship Specialty Start Date End Date Patient, None Per PCP - General 05/01/21 05/28/21 Lacey Perdue MD [address] [address] Referring Physician Infectious Diseases 06/28/18 documented as of this encounter
--- OUTSIDE RECORDS SUMMARY | 2024-11-23 00:26 | XMS_ITS | Encounter Summary ---
Author Organization [facility] Address [address] [place] [address] Care Team Providers Care Radiator Mechanic Name Role Phone Lacey Perdue MD Unavailable [phone] Leonard Jasso APRN Primary Care Provide r Reason for Visit * Reason Comments Medication Refill Encounter Details Date Type Department Care Team (Late st Contact Info) Description 03/10/[address] [address] Leonard Jasso, ANGIE [address] [place] [address] Social History Tobacco Use Types Packs/Day [...] of Assessment Author No 10/25/2017 2:00 PM JANITOR SUPERVISOR Galvan, Am y S, CURRICULUM WRITER * Are you blind or do you have serious difficulty seeing, even when wearing glasses? Answer Date of Assessment Author No 10/25/2017 2:00 PM JANITOR SUPERVISOR Galvan, Am y S, CURRICULUM WRITER * Do you have serious difficulty walking or climbing stairs? (5 years old or older) Answer Date of Assessment Author No 10/25/2017 2:00 PM JANITOR SUPERVISOR Galvan, Am y S, CURRICULUM WRITER * Do you have difficulty dressing or bathing? (5 years old or older) Answer Date of Assessment Author No 10/25/2017 2:00 PM JANITOR SUPERVISOR Galvan, Am y S, CURRICULUM WRITER * Because of a physical, mental, or emotional condition, do you have difficulty doing errands alone such as visiting a doctor's office or shopping? (15 years old or older) Answer Date of Assessment Author No 10/25/2017 2:00 PM JANITOR SUPERVISOR Galvan, Am y S, CURRICULUM WRITER documented as of this encounter Mental Status * Because of a physical, mental, or emotional condition, do you have serious difficulty concentrating, remembering, or making decisions? (5 years old or older) Answer Entry Date Author No 10/25/2017 2:00 PM JANITOR SUPERVISOR Galvan, Am y S, CURRICULUM WRITER documented in this encounter Plan of Treatment Not on file documented as of this encounter Goals Goal Patient Goal Type Associated Problems Recent Progress Patient-Stated? Author Blood Pressure < 140/90 Blood Pressure 134/86(2022 2:25 PM CDT) No Leonard Jasso APRN documented as of this encounter Visit Diagnoses Not on filedocumented in this encounter Care Teams Radiator Mechanic Relationship Specialty Start Date End Date Leonard Jasso APRN [address] [facility] [address] [place] [address] PCP - General Family Medicine 08/15/19 04/30/21 Lacey Perdue MD [address] [phone] Referring Physician Infectious Diseases 06/28/18 documented as of this encounter
--- OUTSIDE RECORDS SUMMARY | 2024-11-23 00:26 | XMS_ITS | Encounter Summary ---
Author Organization [facility] Address [address] [place] [address] Care Team Providers Care Store Team Leader Name Role Phone Lacey Perdue MD Unavailable [phone] Patient, None Per Primary Care Provider Unavaila ble Encounter Details Date Type Department Care Team (Late st Contact Info) Description 05/01/2021 Transcribe Orders [facility] [address] [place] [address] Eve Ward, TRUCK CHAUFFEUR [address] [place] [address] Social History Tobacco Use Types [...] of Assessment Author No 10/25/2017 2:00 PM OCULAR PATHOLOGIST Galvan, Am y S, ACCOUNT UNDERWRITER * Are you blind or do you have serious difficulty seeing, even when wearing glasses? Answer Date of Assessment Author No 10/25/2017 2:00 PM JOHN Galvan Am y S, ACCOUNT UNDERWRITER * Do you have serious difficulty walking or climbing stairs? (5 years old or older) Answer Date of Assessment Author No 10/25/2017 2:00 PM OCULAR PATHOLOGIST Cole Am y S, ACCOUNT UNDERWRITER * Do you have difficulty dressing or bathing? (5 years old or older) Answer Date of Assessment Author No 10/25/2017 2:00 PM OCULAR PATHOLOGIST Deonna Galvan y S, ACCOUNT UNDERWRITER * Because of a physical, mental, or emotional condition, do you have difficulty doing errands alone such as visiting a doctor's office or shopping? (15 years old or older) Answer Date of Assessment Author No 10/25/2017 2:00 PM JOHN Galvan Am y S, ACCOUNT UNDERWRITER documented as of this encounter Mental Status * Because of a physical, mental, or emotional condition, do you have serious difficulty concentrating, remembering, or making decisions? (5 years old or older) Answer Entry Date Author No 10/25/2017 2:00 PM JOHN Galvan Am y S, ACCOUNT UNDERWRITER documented in this encounter Plan of Treatment [...] as of this encounter Care Teams Store Team Leader Relationship Specialty Start Date End Date Patient, None Per PCP - General 05/01/21 05/28/21 Lacey Perdue MD [address] [phone] Referring Physician Infectious Diseases 06/28/18 documented as of this encounter
--- OUTSIDE RECORDS SUMMARY | 2024-11-23 00:26 | XMS_ITS | Encounter Summary ---
Author Organization [facility] Address [address] [place] [address] Care Team Providers Care Allergy And Immunology Specialist Name Role Phone Lacey Perdue MD Unavailable [phone] Leonard Jasso APRN Primary Care Provide r Encounter Details Date Type Department Care Team (Latest Contact Info) Description 01/27/2021 Travel Social History Tobacco Use Types Packs/Day [...] have Coronavirus / COVID-19? No / Unsure 01/27/2021 4:29 PM CDT documented as of this encounter [...] 2:00 PM JOHN Galvan Am y S, LIGHTING FIXTURE INSTALLER * Do you have difficulty dressing or bathing? (5 years old or older) Answer Date of Assessment Author No 10/25/2017 2:00 PM JOHN Galvan Am y S, LIGHTING FIXTURE INSTALLER * Because of a physical, mental, or emotional condition, do you have difficulty doing errands alone such as visiting a doctor's office or shopping? (15 years old or older) Answer Date of Assessment Author No 10/25/2017 2:00 PM JOHN Galvan Am y S, LIGHTING FIXTURE INSTALLER documented as of this encounter Mental Status * Because of a physical, mental, or emotional condition, do you have serious difficulty concentrating, remembering, or making decisions? (5 years old or older) Answer Entry Date Author No 10/25/2017 2:00 PM JOHN Galvan Am y S, LIGHTING FIXTURE INSTALLER documented in this encounter Plan of Treatment Not on file documented as of this encounter Goals Goal Patient Goal Type Associated Problems Recent Progress Patient-Stated? Author Blood Pressure < 140/90 Blood Pressure 134/86(2022 2:25 PM CDT) No Leonard Jasso APRN documented as of this encounter Visit Diagnoses Not on filedocumented in this encounter Care Teams Allergy And Immunology Specialist Relationship Specialty Start Date End Date Leonard Jasso APRN [address] [facility] [address] [place] [address] PCP - General Family Medicine 08/15/19 04/30/21 Lacey Perdue MD [address] [phone] Referring Physician Infectious Diseases 06/28/18 documented as of this encounter
--- OUTSIDE RECORDS SUMMARY | 2024-11-23 00:26 | XMS_ITS | Encounter Summary ---
Author Organization [employer] Address [address] [place] [address] Care Team Providers Care Aging Room Operator Name Role Phone Lacey Perdue MD Unavailable Leonard Jasso APRN Primary Care Provide r Encounter Details Date Type Department Care Team (Late st Contact Info) Description 12/18/2020 9:30 AM SHEET METAL OPERATOR Anesthesia Event [facility] [address] [place] [address] Brenden Perez CRNA Anesthesia Record Procedure Summary Procedure Name Responsible Anesthesiologist Anesthesia Start Time Anesthesia Stop Time ENDO - ESOPHAGOGASTRODUODENOSCOPY Events No events on file. Meds * Agents No agents on file. * Blood No blood administrations on file. Lines, Drains, and Airways No LDAs on file. documented in this encounter Social History Tobacco Use Types Packs/Day Years [...] of Assessment Author No 10/25/2017 2:00 PM SHEET METAL OPERATOR Galvan, Am y S, CELL SUPPORT OPERATOR * Are you blind or do you have serious difficulty seeing, even when wearing glasses? Answer Date of Assessment Author No 10/25/2017 2:00 PM SHEET METAL OPERATOR Galvan, Am y S, CELL SUPPORT OPERATOR * Do you have serious difficulty walking or climbing stairs? (5 years old or older) Answer Date of Assessment Author No 10/25/2017 2:00 PM SHEET METAL OPERATOR Galvan, Am y S, CELL SUPPORT OPERATOR * Do you have difficulty dressing or bathing? (5 years old or older) Answer Date of Assessment Author No 10/25/2017 2:00 PM SHEET METAL OPERATOR Galvan, Am y S, CELL SUPPORT OPERATOR * Because of a physical, mental, or emotional condition, do you have difficulty doing errands alone such as visiting a doctor's office or shopping? (15 years old or older) Answer Date of Assessment Author No 10/25/2017 2:00 PM SHEET METAL OPERATOR Galvan, Am y S, CELL SUPPORT OPERATOR documented as of this encounter Mental Status * Because of a physical, mental, or emotional condition, do you have serious difficulty concentrating, remembering, or making decisions? (5 years old or older) Answer Entry Date Author No 10/25/2017 2:00 PM SHEET METAL OPERATOR Galvan, Am y S, CELL SUPPORT OPERATOR documented in this encounter OR Notes * Anesthesia Postprocedure Evaluation - Brenden Perez CRNA - 12/18/2020 10:56 AM CST Patient: Edilberto Hawley Procedure(s): ENDO - ESOPHAGOGASTRODUODENOSCOPY - Incision Closure: No Incision / NA Anesthesia Type: MAC Last vitals Vitals Value Taken Time BP 131/82 12/18/20 1007 Temp 36.8 ??C (98.2 ??F) 12/18/20 1007 Pulse 67 12/18/20 1007 Resp 16 12/18/20 1007 SpO2 95 % 12/18/20 1007 Anesthesia Post Evaluation Patient location during evaluation: Phase II Patient participation: patient participated Level of consciousness: alert and awake Pain management: adequate Airway patency: patent Anesthetic complications: no PONV present: no Cardiovascular status: hemodynamically stable Respiratory status: spontaneous ventilation and room air Hydration status: euvolemic Discharge(d) when criteria met T METAL OPERATOR * Anesthesia Preprocedure Evaluation - Brenden Perez CRNA - 12/18/2020 9:25 AM CST Images from the original note were not included. Anesthesia Pre-Op Evaluation History of Present Illness: See H&P. No Known Allergies Prior to Admission Medications Last Dose amitriptyline (ELAVIL) 100 MG tablet 12/17/2020 at Unknown time Take 1 tablet by mouth daily. Ascorbic Acid (VITAMIN C) 500 MG tablet aspirin 325 MG tablet baclofen (LIORESAL) 10 MG tablet 12/18/2020 at Unknown time Take 1 tablet by mouth 3 (three) times daily as needed (muscle spasms.). cefUROXime (CEFTIN) 500 MG tablet Take 1 tablet by mouth 2 (two) times daily. cetirizine (ZYRTEC) 10 MG tablet Take 1 tablet by mouth daily as needed for Allergies. diclofenac sodium (VOLTAREN) 50 MG EC tablet 12/18/2020 at Unknown time Take 1 tablet by mouth 2 (two) times daily. Diclofenac Sodium 1 % CREA DULoxetine (CYMBALTA) 60 MG capsule Take 1 capsule by mouth daily. finasteride (PROSCAR) 5 MG tablet Multiple Vitamins-Minerals (ONE DAILY MULTIVITAMIN ADULT PO) NARCAN 4 MG/0.1ML LIQD nasal liquid USE DIRECTED. omeprazole 20 MG tablet Take 2 tablets by mouth every morning before breakfast. oxyCODONE-acetaminophen (PERCOCET) 10-325 MG per tablet 12/18/2020 at Unknown time Take 1 tablet by mouth every 6 (six) hours as needed for Pain. predniSONE (DELTASONE) 5 MG tablet Six oral day one, five oral day two, four oral day three, three oral day four, two oral day five, one oral day six. Probiotic Product (SOLUBLE FIBER/PROBIOTICS PO) tamsulosin HCl (FLOMAX) 0.4 MG capsule Take 1 capsule by mouth daily. vitamin D (CHOLECALCIFEROL) 1000 units tablet zinc sulfate (ZINCATE) 220 (50 Zn) MG capsule Current Facility-Administered Medications Medication Dose Route Frequency Provider Last Rate Last Admin ??? lactated ringers infusion Intravenous Continuous Siddhartha Loyd MD 20 mL/hr at 12/18/20 1027 New Bag at 12/18/20 1027 Inpatient Beta Arely Administrations (last 72 hours) None Anesthesia ROS/Medical History Anticoagulant/Antiplatelet Therapy: Review of anticoagulant/antiplatelet is negative.. Patient/Family Anesthetic History: Review of patient/family anesthetic history is negative.. Patient Anesthetic History: Family Anesthetic History: Cardiovascular: Positive for: hypertension, well controlled. Pulmonary: Positive for: COPD. Gastrointestinal: Positive for: GERD, poorly controlled. Renal: Review of renal system is negative.. 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 Neurological: Review of neurological system is negative.. Psychiatric/Mental State: Positive for: physiological symptoms of anxiety, depression. Other: Positive for: arthritis. Past medical history was reviewed. NPO Status Date of Last Liquid: 12/17/20 Time of last liquid consumption: 2100 Date of Last Solid Food: 12/17/20 Time of last solid food consumption: 1800 Tobacco Use ??? Smoking status: Never Smoker ??? Smokeless tobacco: Never Used Substance Use Topics ??? Alcohol use: No ??? Drug use: Yes Types: Hydrocodone Comment: Arthritis pain Substance and Sexual Activity Drug Use Yes ??? Types: Hydrocodone Comment: Arthritis pain Physical Exam BP: 131/82 (12/18 1006) HR: 67 (12/18 1006) Respiratory Rate: 16 (12/18 1006) SpO2: 95 % (12/18 1006) Temp: 36.8 ??C (98.2 ??F) (12/18 1006) Height: 180.3 cm (5' 11 ) (12/18 804) Weight: 92.1 kg (203 lb) (12/18 804) Body mass index is 28.31 kg/m??. Airway: Mallampati: III.TM distance: <3 FB. Dental: Findings: upper dentures and lower dentures. Cardiovascular: Cardiovascular exam normal.Rhythm: regular.Rate: normal. Pulmonary: Pulmonary exam normal.Breath sounds clear to ascultation. Other Findings: Lab Results (last 6 months) CBC No results for input(s): WBC, RBC, HGB, HCT, MCV, MCH, MCHC, RDW, PLT, NRBCABS in the last 4320 hours. Type & Screen No results for input(s): ABORH, LABANTI, ABSCREENGEL in the last 4320 hours. Basic Metabolic Panel Recent Labs 09/09/20 1050 NA 137 K 4.6 CL 103 CO2 26 GLU 119* BUN 16 CREATININE 1.00 CA 9.1 ANIONGAP 8 BCR 16.0 OSMOLALITY 276* EGFRNAA 78 EGFRAA >90 POC Glucose No results for input(s): POCGMD, POCGLU in the last 4320 hours. (if applicable) No results for input(s): HCGSCREEN, URHCG, POCURHCG in the last 4320 hours. Diagnostic/Imaging Results Anesthesia Plan ASA Score: 3 Plan: MAC. Plan discussed with: attending. Induction: Intravenous. Postop Analgesia: Per surgeon. Informed Consent: Anesthetic plan, postop analgesia plan, and risks discussed with patient. Anesthesia options and risks explained to patient, All questions answered and Patient (or parent/guardian) appears to have understood our discussion. T METAL OPERATOR documented in this encounter Plan of Treatment Not on file documented as of this encounter Goals Goal Patient Goal Type Associated Problems Recent Progress Patient-Stated? Author Blood Pressure < 140/90 Blood Pressure 134/86(2022 2:25 PM CDT) No Leonard Jasso APRN documented as of this encounter Visit Diagnoses Not on filedocumented in this encounter Care Teams Aging Room Operator Relationship Specialty Start Date End Date Leonard Jasso APRN [address] [facility] [address] [place] [address] PCP - General Family Medicine 08/15/19 04/30/21 Lacey Perdue MD [address] [phone] Referring Physician Infectious Diseases 06/28/18 documented as of this encounter
--- OUTSIDE RECORDS SUMMARY | 2024-11-23 00:26 | XMS_ITS | Encounter Summary ---
Author Organization [employer] Address [address] [place] [address] Care Team Providers Care Hazard Mitigation Officer Name Role Phone Lacey Perdue MD Unavailable [phone] Leonard Jasso APRN Primary Care Provide r Reason for Visit * Reason Onset Date Comments Medication Refill 02/06/2021 Encounter Details Date Type Department Care Team (Late st Contact Info) Description 02/06/[address] [address] Gisel Richardson, SUKUMAR [address] [facility] [address] [place] [id number] Social History Tobacco Use Types Packs/Day [...] have Coronavirus / COVID-19? No / Unsure 01/29/2021 10:55 AM CDT documented as of this encounter Functional Status * Are you deaf or do you have serious difficulty hearing? Answer Date of Assessment Author No 10/25/2017 2:00 PM JAVA PROJECT MANAGER Galvan, Am y S, SENIOR MEDIA PLANNER * Are you blind or do you have serious difficulty seeing, even when wearing glasses? Answer Date of Assessment Author No 10/25/2017 2:00 PM JAVA PROJECT MANAGER Galvan, Am y S, SENIOR MEDIA PLANNER * Do you have serious difficulty walking or climbing stairs? (5 years old or older) Answer Date of Assessment Author No 10/25/2017 2:00 PM JAVA PROJECT MANAGER Galvan, Am y S, SENIOR MEDIA PLANNER * Do you have difficulty dressing or bathing? (5 years old or older) Answer Date of Assessment Author No 10/25/2017 2:00 PM JAVA PROJECT MANAGER Galvan, Am y S, SENIOR MEDIA PLANNER * Because of a physical, mental, or emotional condition, do you have difficulty doing errands alone such as visiting a doctor's office or shopping? (15 years old or older) Answer Date of Assessment Author No 10/25/2017 2:00 PM JAVA PROJECT MANAGER Galvan, Am y S, SENIOR MEDIA PLANNER documented as of this encounter Mental Status * Because of a physical, mental, or emotional condition, do you have serious difficulty concentrating, remembering, or making decisions? (5 years old or older) Answer Entry Date Author No 10/25/2017 2:00 PM JAVA PROJECT MANAGER Galvan, Am y S, SENIOR MEDIA PLANNER documented in this encounter Plan of Treatment Not on file documented as of this encounter Goals Goal Patient Goal Type Associated Problems Recent Progress Patient-Stated? Author Blood Pressure < 140/90 Blood Pressure 134/86(2022 2:25 PM CDT) No Leonard Jasso APRN documented as of this encounter Visit Diagnoses Not on filedocumented in this encounter Care Teams Hazard Mitigation Officer Relationship Specialty Start Date End Date Leonard Jasso APRN [address] [facility] [address] [place] [address] PCP - General Family Medicine 08/15/19 04/30/21 Lacey Perdue MD [address] [phone] Referring Physician Infectious Diseases 06/28/18 documented as of this encounter
--- OUTSIDE RECORDS SUMMARY | 2024-11-23 00:26 | XMS_ITS | Encounter Summary ---
Author Organization [employer] Address [address] [place] [address] Care Team Providers Care Carcass Washer Name Role Phone Lacey Perdue MD Unavailable [phone] David Concepcion APRN Primary Care Provide r Reason for Referral * MRI/CAT Scan (Routine) - Closed Specialty Diagnoses / Procedures Referred By Celine almaguer Referred To Contact Radiology Diagnoses Chronic neck pain Radicular pain in right arm Procedures MRI Cervical Spine wo Contrast David Concepcion, CANE WEIGHER [address] [place] [address] Phone: tel: fax: Referral ID Status Reason Start Date Expiration Date Visits Re quested Visits Authorized [id number] Closed 02/21/2021 02/21/2022 1 1 Reason for Visit * Reason Comments Neck Pain Patient is here for a follow up. Encounter Details Date Type Department Care Team (Late st Contact Info) Description 02/21/2021 2:15 PM CDT Office Visit [address] [address] David Concepcion, CANE WEIGHER [address] [place] [address] Chronic neck pain (Primary Dx); Radicular pain in right arm Social History Tobacco Use Types Packs/Day Years [...] Sign Reading Time Taken Comments Blood Pressure 114/84 02/21/2021 2:17 PM CDT Pulse 82 02/21/2021 2:17 PM CDT Temperature 36.3 ??C (97.4 ??F) 02/21/2021 2:17 PM CD T Respiratory Rate - - Oxygen Saturation 94% 02/21/2021 2:17 PM CDT Inhaled Oxygen Concentration - - Weight 91.2 kg (201 lb) 02/21/2021 2:17 PM CDT Height 180.3 cm (5' 11 ) 02/21/2021 2:17 PM CDT Body Mass Index 28.03 02/21/2021 2:17 PM CDT documented in this encounter Functional [...] this encounter Patient Instructions * Patient Instructions* David Concepcion APNP - 02/21/2021 2:15 PM CDT Take steroid taper exactly as written. We will call you with MRI results when available to review. Follow up for any serious change in condition. documented in this encounter Progress Notes * David Concepcion APNP - 02/21/2021 2:15 PM CDT Chief Complaint Patient presents with ??? Neck Pain Patient is here for a follow up. [address] [address] Dept: [phone] Dept Loc: [phone] Loc Date: 02/21/2021 Name: Edilberto Durand : 1955 PCP: TIFFANI Galeano Subjective: Patient ID: Edilberto Durand is a 65 y.o. male. [address] [place] [address] DIAGNOSTIC IMAGING Name: EDILBERTO DURAND Ordering Phys: DAVID CONCEPCION Date of : 1955 Gender: M Accession Number: [id number] EXAM DESCRIPTION: XR CERVICAL SPINE 3 VIEWS OR LESS REASON FOR STUDY: Fell off truck 2 weeks prior. Hit right shoulder and right side of neck. TECHNIQUE: Three view cervical spine COMPARISON: None. FINDINGS: ALIGNMENT: Alignment of the cervical spine is within normal limits. Vertebral body: Vertebral body heights are within normal limits. No acute fracture. DISCS: There is diffuse degenerative disc space narrowing. HARDWARE: None. SOFT TISSUES: The prevertebral soft tissues are within normal limits. LUNG APICES: Clear IMPRESSION: Degenerative disc space narrowing throughout the cervical spine without fracture or malalignment. THIS IS AN ELECTRONICALLY VERIFIED FINAL REPORT 01/27/2021 5:54 PM - Electronically signed by Dayanna Durbin M.D. History provided by: Patient Neck Pain This is a recurrent problem. The current episode started more than 1 month ago. The problem occurs intermittently. The problem has been gradually worsening. The pain is associated with an unknown factor. The pain is present in the right side. The quality of the pain is described as aching. The painis moderate. The symptoms are aggravated by position. The pain is worse during the night. Pertinentnegatives include no chest pain, fever, headaches, leg pain, numbness, photophobia, syncope or weakness. He has tried NSAIDs, oral narcotics and muscle relaxants for the symptoms. The treatment provided no relief. Patient's medications, allergies, past medical, surgical, social and family histories were reviewedand updated as appropriate. Review of Systems Constitutional: Negative for activity change, appetite change, fatigue and fever. HENT: Negative for congestion, ear pain, postnasal drip, rhinorrhea, sinus pressure, sinus pain, sneezing and sore throat. Eyes: Negative for photophobia, discharge and itching. Respiratory: Negative for cough, shortness of breath and wheezing. Cardiovascular: Negative for chest pain, palpitations and syncope. Gastrointestinal: Negative for abdominal pain, diarrhea, nausea and vomiting. Endocrine: Negative for cold intolerance and heat intolerance. Musculoskeletal: Positive for neck pain. Negative for myalgias. Allergic/Immunologic: Negative for environmental allergies and food allergies. Neurological: Negative for weakness, numbness and headaches. Objective: Blood pressure 114/84, pulse 82, temperature 36.3 ??C (97.4 ??F), height 1.803 m (5' 11 ), weight 91.2 kg (201 lb), SpO2 94 %., BMI Body mass index is 28.03 kg/m??. Physical Exam Vitals signs and nursing note reviewed. Constitutional: General: He is not in acute distress. Appearance: Normal appearance. He is not ill-appearing, toxic-appearing or diaphoretic. HENT: Head: Normocephalic and atraumatic. Neck: Musculoskeletal: Neck supple. Muscular tenderness (C6,C7.) present. Comments: Decreased ROM. Musculoskeletal: Cervical back: He exhibits decreased range of motion, tenderness (Right trap. ) and pain (Pain radiates to right trap. ). He exhibits no swelling, no edema, no deformity and no spasm. Lymphadenopathy: Cervical: No cervical adenopathy. Neurological: Mental Status: He is alert. Assessment/Plan: Problem List Items Addressed This Visit None Visit Diagnoses Chronic neck pain - Primary Radicular pain right tricep. Relevant Medications predniSONE (DELTASONE) 5 MG tablet Other Relevant Orders MRI Cervical Spine wo Contrast Radicular pain in right arm Relevant Orders MRI Cervical Spine wo Contrast Take steroid taper exactly as written. We will call you with MRI results when available to review. Follow up for any serious change in condition. Next Visit: Follow up if symptoms worsen or fail to improve. Encounter of: 02/21/2021 Signed: TIFFANI Galeano 03/03/2021 8:28 AM documented in this encounter Plan of Treatment Not on file documented as of this encounter Goals Goal Patient Goal Type Associated Problems Recent Progress Patient-Stated? Author Blood Pressure < 140/90 Blood Pressure 134/86(2022 2:25 PM CDT) No David Concepcion APRN documented as of this encounter Results * MRI Cervical Spine wo Contrast (03/05/2021 11:08 AM CDT) Anatomical Region Laterality Modality C-spine, T-spine, Neck Magnetic Resonance 03/05/2021 9:12 AM CDT Impressions 03/12/2021 3:33 PM CDT 1. Multilevel degenerative disc changes. 2. Moderate generalized bulge of the disc with moderate canal and bilateral foramina C4-C5. 3. Right paracentral disc protrusion at C5-C6. 4. Moderate generalized bulge of the disc moderate canal and bilateral foraminal at C6-C7. 5. Diffuse facet arthropathy. THIS IS AN ELECTRONICALLY VERIFIED FINAL REPORT 03/12/2021 3:30 PM - Electronically signed by Dayanna Durbin M.D. Narrative 03/12/2021 3:33 PM CDT [address] [place] [address] DIAGNOSTIC IMAGING Name: EDILBERTO DURAND ??Ordering Phys: DAVID CONCEPCION Date of : 1955 ?Gender: M ??Accession Number: [id number] EXAM DESCRIPTION: MRI CERVICAL SPINE WO CONTRAST REASON FOR STUDY: Neck strain into right upper extremity for approximately 1 month.> TECHNIQUE: Multiplanar, multisequence images obtained of the cervical spine without contrast. COMPARISON: X-ray of the cervical spine on January 28, 2020 FINDINGS: ALIGNMENT: Alignment of the cervical spine is within normal limits.. VERTEBRAE: Vertebral body height well-maintained. Normal appearing marrow. DISCS: There is disc space narrowing throughout the cervical spine most marked at C4 C5 through C6 C7. HARDWARE: None in the spine. CORD: Normal in size and signal intensity. INDIVIDUAL LEVELS: C1-C2: No disc protrusion. ??No canal or foraminal narrowing. C2-C3: No disc protrusion. ??No canal or foraminal narrowing. C3-C4: Mild generalized bulge of the disc without canal narrowing. ??There is mild bilateral foraminal narrowing secondary to disc osteophyte complex. C4-C5: Moderate generalized bulge of the disc with moderate canal and bilateral foraminal narrowing with moderate bilateral facet arthropathy. C5-C6: Right paracentral disc bulge with mild canal and left foraminal narrowing and moderate right foraminal narrowing secondary to disc osteophyte complex. C6-C7: ??There is moderate generalized bulge of the disc with moderate canal and bilateral foraminal narrowing. ??There is moderate bilateral facet arthropathy. C7-T1: Mild generalized bulge of the disc. ??No canal or foraminal narrowing. ??Moderate bilateral facet arthropathy. BASE OF BRAIN: No significant finding UPPER THORACIC: Incompletely imaged. No significant spinal stenosis or foraminal stenosis. OTHER: No other significant finding. Procedure Note Dayanna Durbin MD - 03/12/[address] [place] [address] DIAGNOSTIC IMAGING Name: KIZZY EDILBERTO LUISDONITA Ordering Phys: JAMEY DAVID Ashley Date of : 1955 Gender: M Accession Number: [id number] EXAM DESCRIPTION: MRI CERVICAL SPINE WO CONTRAST REASON FOR STUDY: Neck strain into right upper extremity for approximately 1 month.> TECHNIQUE: Multiplanar, multisequence images obtained of the cervical spine without contrast. COMPARISON: X-ray of the cervical spine on January 28, 2020 FINDINGS: ALIGNMENT: Alignment of the cervical spine is within normal limits.. VERTEBRAE: Vertebral body height well-maintained. Normal appearing marrow. DISCS: There is disc space narrowing throughout the cervical spine most marked at C4 C5 through C6 C7. HARDWARE: None in the spine. CORD: Normal in size and signal intensity. INDIVIDUAL LEVELS: C1-C2: No disc protrusion. No canal or foraminal narrowing. C2-C3: No disc protrusion. No canal or foraminal narrowing. C3-C4: Mild generalized bulge of the disc without canal narrowing. There is mild bilateral foraminal narrowing secondary to disc osteophyte complex. C4-C5: Moderate generalized bulge of the disc with moderate canal and bilateral foraminal narrowing with moderate bilateral facet arthropathy. C5-C6: Right paracentral disc bulge with mild canal and left foraminal narrowing and moderate right foraminal narrowing secondary to disc osteophyte complex. C6-C7: There is moderate generalized bulge of the disc with moderate canal and bilateral foraminal narrowing. There is moderate bilateral facet arthropathy. C7-T1: Mild generalized bulge of the disc. No canal or foraminal narrowing. Moderate bilateral facet arthropathy. BASE OF BRAIN: No significant finding UPPER THORACIC: Incompletely imaged. No significant spinal stenosis or foraminal stenosis. OTHER: No other significant finding. IMPRESSION: 1. Multilevel degenerative disc changes. 2. Moderate generalized bulge of the disc with moderate canal and bilateral foramina C4-C5. 3. Right paracentral disc protrusion at C5-C6. 4. Moderate generalized bulge of the disc moderate canal and bilateral foraminal at C6-C7. 5. Diffuse facet arthropathy. THIS IS AN ELECTRONICALLY VERIFIED FINAL REPORT 03/12/2021 3:30 PM - Electronically signed by Dayanna Durbin M.D. David Concepcion APRN IMG MRI ORDERABLES Fi nal Result documented in this encounter Visit Diagnoses Diagnosis Chronic neck pain- Primary Cervicalgia Radicular pain in right arm Neuralgia, neuritis, and radiculitis, unspecified Chronic neck pain Cervicalgia Radicular pain in right arm Neuralgia, neuritis, and radiculitis, unspecified documented in this encounter Care Teams Carcass Washer Relationship Specialty Start Date End Date David Concepcion APRN [address] [facility] [address] [place] [address] PCP - General Family Medicine 08/15/19 04/30/21 Lacey Perdue MD [address] [phone] Referring Physician Infectious Diseases 06/28/18 documented as of this encounter
--- OUTSIDE RECORDS SUMMARY | 2024-11-23 00:26 | XMS_ITS | Encounter Summary ---
Author Organization [employer] Address [address] [place] [id number] Care Team Providers Care Technology Adoption Manager Name Role Phone Lacey Perdue MD Unavailable [phone] David Concepcion APRN Primary Care Provide r Reason for Referral * MRI/CAT Scan (Routine) - Closed Specialty Diagnoses / Procedures Referred By Celine almaguer Referred To Contact Radiology Diagnoses Chronic neck pain Radicular pain in right arm Procedures MRI Cervical Spine wo Contrast David Concepcion, [employer] [address] [place] [address] Phone: tel: fax: Referral ID Status Reason Start Date Expiration Date Visits Re quested Visits Authorized [id number] Closed 02/21/2021 02/21/2022 1 1 Reason for Visit * MRI/CAT Scan (Routine) - Closed Specialty Diagnoses / Procedures Referred By Celine almaguer Referred To Contact Radiology Diagnoses Chronic neck pain Radicular pain in right arm Send to patient access, order in [facility]. MRI C-Spine (WO), DX: Chronic neck pain, radicular pain in right arm, Romero has order in [facility]/k It unable to contact him at his number, please call #[phone] and ask for Javier, Procedures MRI CERVICAL SPINE WO CONTRAST MRI SPINE CERVICAL WO CONT David Concepcion, [employer] [address] [place] [address] Phone: tel: fax: [facility] [address] [place] [address] Phone: tel: Referral ID Status Reason Start Date Expiration Date Visits Re quested Visits Authorized [id number] Closed 03/05/2021 03/05/2022 1 1 Encounter Details Date Type Department Care Team (Late st Contact Info) Description 03/05/2021 8:33 AM CDT - 03/05/2021 11:59 PM CDT Hospital Encounter [facility] [address] [place] [address] David Concepcion, [employer] [address] [place], [place] [id number] Chronic neck pain; Radicular pain in right arm Discharge Disposition: Home - Discharge to Home [...] tablet by mouth daily. 30 tablet 5 12/16/2020 1 baclofen (LIORESAL) 10 MG tablet Take 1 tablet by mouth 3 (three) times daily as needed (muscle spasms.). 90 tablet 06/04/2020 1 diclofenac sodium (VOLTAREN) 50 MG EC tablet Take 1 tablet by mouth 2 (two) times daily. 60 tablet 5 12/16/2020 1 NARCAN 4 MG/0.1ML LIQD nasal liquid USE DIRECTED. 2 each 1 01/15/2020 2 omeprazole 20 MG tablet Take 2 tablets by mouth every morning before breakfast. 60 tablet 5 11/13/2020 1 oxyCODONE-acetamin ophen (PERCOCET) 10-325 MG per tablet Take 1 tablet by mouth every 6 (six) hours as needed for Pain. 120 tablet 02/07/2021 1 predniSONE (DELTASONE) 5 MG tablet Six oral day one, five oral day two, four oral day three, three oral day four, two oral day five, one oral day six. 21 tablet 02/21/2021 1 documented as of this encounter Plan of Treatment Not on file documented as of this encounter Goals Goal Patient Goal Type Associated Problems Recent Progress Patient-Stated? Author Blood Pressure < 140/90 Blood Pressure 134/86(2022 2:25 PM CDT) No David Concepcion, ANGIE documented as of this encounter Procedures Procedure Name Priority Date/Time Associated Diagnosis Comments MRI CERVICAL SPINE WO CONTRAST Routine 03/05/2021 11:08 AM CDT Chronic neck pain Radicular pain in right arm documented in this encounter Results * MRI Cervical Spine [...] Durbin M.D. Narrative 03/12/2021 3:33 PM CDT [address] [place] [address] DIAGNOSTIC IMAGING Name: EDILBERTO DURAND BALJEET ??Ordering Phys: DAVID CONCEPCION Date of : 1955 ?Gender: M ??Accession Number: [id number] EXAM DESCRIPTION: MRI CERVICAL SPINE WO CONTRAST [...] Procedure Note Dayanna Durbin MD - 03/12/[address] [place] [address] DIAGNOSTIC IMAGING Name: EDILBERTO DURAND Ordering Phys: DAVID CONCEPCION Date of : 1955 Gender: M Accession Number: [id number] EXAM DESCRIPTION: MRI CERVICAL SPINE WO CONTRAST [...] this encounter Visit Diagnoses Diagnosis Chronic neck pain Cervicalgia Radicular pain in right arm Neuralgia, neuritis, and radiculitis, unspecified documented in this encounter Care Teams Technology Adoption Manager Relationship Specialty Start Date End Date David Concepcion APRN [address] [facility] [address] [place] [address] PCP - General Family Medicine 08/15/19 04/30/21 Lacey Perdue MD [address] [address] Referring Physician Infectious Diseases 06/28/18 documented as of this encounter
--- OUTSIDE RECORDS SUMMARY | 2024-11-23 00:26 | XMS_ITS | Encounter Summary ---
Author Organization [facility] Address [address] [place] [id number] Care Team Providers Care Resident Care Manager Rn Name Role Phone Lacey Perdue MD Unavailable [phone] Michell Trevizo MD Primary Care Provider [phone] Reason for Visit * Reason Comments Establish Care Encounter Details Date Type Department Care Team (Latest Contact Info) Description 05/29/2021 9:30 AM CDT Office Visit [facility] Internal Medicine [address] [place] [address] Michell Trevizo MD [facility] [place] [address] Chronic bilateral low back pain with left-sided sciatica (Primary Dx); Spinal stenosis, unspecified spinal region; Hyperlipidemia, unspecified hyperlipidemia type; [facility] current use of opiate analgesic Social History [...] Sign Reading Time Taken Comments Blood Pressure 122/88 05/29/2021 9:32 AM CDT Pulse 80 05/29/2021 9:32 AM CDT Temperature - - Respiratory Rate - - Oxygen Saturation - - Inhaled Oxygen Concentration - - Weight 90.7 kg (200 lb) 05/29/2021 9:32 AM CDT Height - - Body Mass Index 27.89 02/25/2021 9:01 AM CDT documented in this [...] Author No 10/25/2017 2:00 PM Deonna Padilla [employer] * Do you have difficulty dressing or bathing? (5 years old or older) Answer Date of Assessment Author No 10/25/2017 2:00 PM Deonna Padilla, [employer] * Because of a physical, mental, or [...] * Patient Instructions* Michell Trevizo MD - 05/29/2021 9:30 AM CDT Diclofenac twice a day Cre[place] twice a day if possible (maximum of 4 per day) 1 month follow up with labs documented in this encounter Progress Notes * Michell Trevizo MD - 05/29/2021 9:30 AM CDT General Internal Medicine Patient Note [facility] CC: Chief Complaint Patient presents with ??? Establish Care History of Present Illness: Edilberto Hawley is a 65 y.o. male presenting to clinic to establish care. He was at [facility] on Wednesday for concerns for a stroke. He had gone to work and does not remember going,people at work took him to the hospital. He has episodes where he is getting dizzy. If he starts shaking he will eat a bag of candy and that usually helps. He notes a R foot issues that started in [place]. He broke his back in 3 places in 2015 while at work at [employer]. L wrist pain - offered repeat imaging however he said he would follow in pain clinic. Bulging disc as cervical level - shoots pain down both arms. Sees Pain for injections with Dr. Jefferson. He is due to get injections again in 4 weeks. 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 Did not work for a month because of the pain. For pain control he will take tyelenol, ibuprofen, has not had percocet for months. Hot showers, Ice pack (gel pack). No physical therapy. Sleeps and does hot showers. He notes problems urinating - goes all the time. His father had issues with prostate as well. Sometimes have difficulty starting his urination. Urinates 3-4 times/night and 10-15 times/day. ROS: Pertinent positives and negatives as mentioned in HPI Past Medical/Surgical/Family/Social History: Reviewed and updated in [facility] History tab Artificial hip. Medications: Reviewed and updated in [facility] Medications tab Current Outpatient Medications Medication [...] and updated in Epic Allergies tab BP 122/88 Pulse 80 Wt 90.7 kg (200 lb) BMI 27.89 kg/m?? Physical Exam Constitutional: Well-nourished, and in [...] and dry. Psychiatric: Affect normal. Labs/Imaging: Reviewed - ordered Assessment & Plan Diagnosis: 1. Chronic bilateral low back pain with left-sided sciatica 2. Spinal stenosis, unspecified spinal region 3. 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 amitriptyline (ELAVIL) 100 MG tablet Sig: Take 1 tablet by mouth daily. Dispense: 30 tablet Refill: 5 No refills available ??? baclofen (LIORESAL) 10 MG tablet Sig: Take 1 tablet by mouth 3 (three) times daily as needed (muscle spasms.). Dispense: 90 tablet Refill: 0 ??? diclofenac sodium (VOLTAREN) 50 MG EC tablet Sig: Take 1 tablet by mouth 2 (two) times daily. Dispense: 60 tablet Refill: 5 ??? omeprazole 20 MG tablet Sig: Take 2 tablets by mouth every morning before breakfast. Dispense: 60 tablet Refill: 5 ??? oxyCODONE-acetaminophen (PERCOCET) 10-325 MG per tablet Sig: Take 1 tablet by mouth every 6 (six) hours as needed for Pain. Dispense: 120 tablet Refill: 0 No refills available for controlled drug Additional Orders: Orders Placed This Encounter Procedures ??? Comprehensive metabolic panel ??? Lipid panel ??? TSH ??? Microalbumin Urine Random ??? Protein / creatinine ratio, urine ??? Hemoglobin A1c ??? CBC auto differential ??? PSA Medicare Screen ??? Pain Management Profile 1 With Confirm, With D/L, Urine I spent a total of 60 minutes on 05/29/2021 reviewing the record, performing a face to [...] Profile 1 With Confirm, With D/L, Urine (05/29/2021 11:38 AM CDT) [facility] medMATCH Summary SEE NOTE [facility] Comment: ?Prescribed ?Prescribed ?Not Prescribed ?Consistent ?Inconsistent ?Inconsistent ?Oxycodone ? Aminoclonazepam [[place]] Prescribed Drug 1 Oxycodone QU [facility] Comment: [[place]] Testing performed at: [place], [facility], [address] [place], [phone], Gear Shaver Set Up Operator: Osvaldo Rios D.O., MPH Amphetamines NEGATIVE <500 ng/mL [facility] Comment:[CB] Barbiturates NEGATIVE <300 ng/mL [facility] Comment:[CB] Benzodiazepines POSITIVE(A) <100 ng/mL [facility] Comment:[CB] Alphahydoxyalprazolam NEGATIVE <25 ng/mL [facility] Comment:[CB] Alphahydroxymidazolam NEGATIVE <50 ng/mL [facility] Comment:[CB] Alphahydroxytriazolam NEGATIVE <50 ng/mL [facility] Comment:[CB] Aminoclonazepam 184(H) <25 ng/mL [facility] Comment:[CB] MEDMATCH AMINOCLONAZEPAM INCONSISTENT (A) [facility] Comment:[CB] Hydroxyethylflurazepam NEGATIVE <50 ng/mL [facility] Comment:[CB] Lorazepam NEGATIVE <50 ng/mL [facility] Comment:[CB] Nordiazepam UR Qual NEGATIVE <50 ng/mL [facility] Comment:[CB] Oxazepam UR Qual NEGATIVE <50 ng/mL [facility] Comment:[CB] Temazepam Qual UR NEGATIVE <50 ng/mL [facility] Comment:[CB] Benzodiazepines Comments SEE NOTE [facility] Comment: See Benzodiazepines Notes, LDT Notes [CB] Cocaine Metabolite NEGATIVE <150 ng/mL [facility] Comment:[CB] Marijuana Metabolite NEGATIVE <20 ng/mL [facility] Comment:[CB] Methadone NEGATIVE <100 ng/mL [facility] Comment:[CB] Opiates NEGATIVE <100 ng/mL [facility] Comment:[CB] Oxycodone POSITIVE(A) <100 ng/mL [facility] Comment:[CB] Noroxycodone, UR NEGATIVE <50 ng/mL [facility] Comment:[CB] Oxycodone NEGATIVE <50 ng/mL [facility] Comment:[CB] Oxymorphone 163(H) <50 ng/mL [facility] Comment:[CB] medMATCH Oxymorphone CONSISTENT [facility] Comment:[CB] Oxycodone Comments SEE NOTE Q [facility] Comment: See Oxycodone Notes, LDT Notes [CB] Phencyclidine NEGATIVE <25 ng/mL [facility] Comment:[CB] Creatinine Urine 210.3 > or = 20.0 mg/dL [facility] Comment:[CB] pH 5.8 4.5 - 9.0 [facility] Comment:[CB] Oxidant NEGATIVE <200 mcg/mL [facility] Comment:[CB] Comments: SEE NOTE [facility] Comment: This drug testing is for medical treatment only. Analysis was performed as non-forensic testing and these results should be used only by healthcare providers to render diagnosis or treatment, or to monitor progress of medical conditions. Benzodiazepines Notes: Aminoclonazepam detected is consistent with the use of the drug Clonazepam. Oxycodone Notes: Oxymorphone detected is consistent with the use of the drug Oxymorphone. Oxymorphone can be a prescribed drug and is also a metabolite of Oxycodone. LDT Notes: Confirmation tests were developed and their analytical performance characteristics have been determined by [facility]. It has not been cleared or approved by the FDA. This assay has been validated pursuant to the CLIA regulations and is used for clinical purposes. medMATCH(R) enables providers to identify if drug use is consistent or inconsistent with a corresponding prescribed medication(s) list. Healthcare Providers needing Interpretation assistance, please contact us at [phone] ( ) M-F, 8am to 10pm EST [[place]] Urine specimen (specimen) 05/29/2021 11:38 AM CDT 05/30/2021 5:39 AM CDT Narrative [facility] - 06/01/2021 12:06 PM CDT Testing performed at: [facility], [address] [place], [phone], Gear Shaver Set Up Operator: Osvaldo Rios D.O., MPH Michell Trevizo MD URINE ORDERABLES Final Result Performing Organization Address [facility] de Phone Number [facility] [address] [place] [address] [phone] * PSA Medicare Screen (05/29/2021 11:38 AM CDT) Pathologist [facility] PSA 0.19 0.00 - 4.00 ng/mL [facility] Comment:Testing performed by Chemiluminescent Microparticle Immunoassay (CMIA) on [employer] I. Blood specimen (specimen) 05/29/2021 11:38 AM CDT 05/29/2021 11:58 AM CDT Comment:- Narrative [facility] - 05/29/2021 5:56 PM CDT Testing performed at [facility], [address] [place] [address]. CLIA [id number] Phone [phone] Ext [phone] ??Gear Shaver Set Up Operator Shant Rivas MD us Michell Trevizo MD LAB BLOOD ORDERABLES Final Res ult Performing Organization Address [facility] Co de Phone Number [facility] [address] [place] [address] [phone] * (ABNORMAL) CBC auto differential (05/29/2021 11:38 AM CDT) Pathologist [facility] WBC 15.2(H) 3.1 - 11.0 x10^3/uL [facility] RBC 5.35 4.29 - 5.55 x10^6/uL [facility] HGB 17.3(H) 13.4 - 16.9 g/dL [facility] HCT 51.8(H) 38.0 - 50.0 % [facility] MCV 96.8 82.0 - 98.0 fL [facility] MCH 32.3 27.2 - 33.3 pg [facility] MCHC 33.4 32.0 - 36.0 g/dL [facility] RDW-CV 12.3 11.4 - 14.2 % [facility] SD-RDW 44.0 36.0 - 47.0 fL [facility] Platelets 229 147 - 370 x10^3/uL [facility] MPV 10.6 9.1 - 12.1 fL [facility] NE% 80.1(H) 42.0 - 76.0 % [facility] %LYMPH 13.5 13.5 - 48.0 % [facility] %MONO 5.3 3.5 - 14.0 % [facility] % Eosinophils 0.4 0.0 - 7.0 % [facility] % Basophils 0.3 0.0 - 1.5 % [facility] Imm Gran Relative 0.4 0.0 - 1.0 % [facility] NE# 12.2(H) 1.2 - 7.3 x10^3/uL [facility] Lymphs # 2.1 0.7 - 3.5 x10^3/uL [facility] [place]# 0.8 0.2 - 0.9 x10^3/uL [facility] Eosinophil # 0.1 0.0 - 0.5 x10^3/uL [facility] Baso# 0.1 0.0 - 0.1 x10^3/uL [facility] Imm Gran Absolute 0.06 0.00 - 0.10 x10^3/uL [facility] NRBC % 0.00 0.00 - 0.10 /100 WBC [facility] Blood specimen (specimen) 05/29/2021 11:38 AM CDT 05/29/2021 11:58 AM CDT Comment:- Narrative [facility] - 05/29/2021 4:39 PM CDT Testing performed at [facility], [address] [place] [address]. CLIA [id number] Phone [phone] Ext [phone] ??Gear Shaver Set Up Operator Shant Rivas MD Michell Trevizo MD LAB BLOOD ORDERABLES Final Res ult Performing Organization Address [facility] Co de Phone Number [facility] [address] [place] [address] [phone] * Hemoglobin A1c (05/29/2021 11:38 AM CDT) Hemoglobin A1C 6.7 % [facility] Comment: Nondiabetic Patient: ? 4.0 - 6.0 % Controlled Diabetic Patient: ?? < 7.0 % Clinical correlation is essential Estimated Avg Glucose 146 mg/dL [facility] Blood specimen (specimen) 05/29/2021 11:38 AM CDT 05/29/2021 11:58 AM CDT Comment:- Narrative [facility] - 05/29/2021 5:23 PM CDT Testing performed at [facility], [address] [place] [address]. CLIA [id number] Phone [phone] Ext [phone] ??Gear Shaver Set Up Operator Shant Rivas MD us Michell Trevizo MD LAB BLOOD ORDERABLES Final Res ult Performing Organization Address [facility] Co de Phone Number [facility] [address] [place] [address] [phone] * Protein / creatinine ratio, urine (05/29/2021 11:38 AM CDT) Protein, UR 12.50 1.00 - 14.00 mg/dL [facility] Creatinine Urine 223.2 mg/dL [facility] Protein/Creat Ratio UR 0.1 0.0 - 0.2 [facility] Urine specimen (specimen) 05/29/2021 11:38 AM CDT 05/29/2021 12:05 PM CDT Comment:- Narrative [facility] - 05/29/2021 5:28 PM CDT Testing performed at [facility], [address] [place] [address]. CLIA [id number] Phone [phone] Ext [phone] ??Gear Shaver Set Up Operator Shant Rivas MD Michell Trevizo MD URINE ORDERABLES Final Result Performing Organization Address [facility] Co de Phone Number [facility] [address] [place] [address] [phone] * Microalbumin Urine Random (05/29/2021 11:38 AM CDT) Microalbumin UR 1.53 0.00 - 2.10 mg/dL [facility] Creatinine Urine 223.2 mg/dL [facility] Microalbumin/Crea t Ratio 7 0 - 30 mcg/mg [facility] Urine specimen (specimen) 05/29/2021 11:38 AM CDT 05/29/2021 12:05 PM CDT Comment:- Narrative [facility] - 05/29/2021 5:28 PM CDT Testing performed at [facility], [address] [place] [address]. CLIA [id number] Phone [phone] Ext [phone] ??Gear Shaver Set Up Operator Shant Rivas MD us Michell Trevizo MD URINE ORDERABLES Final Result Performing Organization Address [facility] Co de Phone Number [facility] [address] [place] [address] [phone] * TSH (05/29/2021 11:38 AM CDT) TSH 0.870 0.350 - 4.940 uIU/mL [facility] Blood specimen (specimen) 05/29/2021 11:38 AM CDT 05/29/2021 11:58 AM CDT Comment:- Narrative [facility] - 05/29/2021 5:56 PM CDT Testing performed at [facility], [address] [place] [address]. CLIA [id number] Phone [phone] Ext [phone] ??Gear Shaver Set Up Operator Shant Rivas MD Michell Trevizo MD LAB BLOOD ORDERABLES Final Res ult [facility] [address] [place] [address], [facility] [phone] * (ABNORMAL) Lipid panel (05/29/2021 11:38 AM CDT) Cholesterol 205(H) 0 - 200 mg/dL [facility] Comment:Cholesterol borderli ne high, 200- 239 mg/dl. Clinical correlation is essential. Triglycerides 137 0 - 200 mg/dL [facility] HDL Cholesterol 52(L) >60 mg/dL [facility] LDL, Calculated 125.6 mg/dL [facility] Comment: <100 ?Optimal 100-129 ? Near Optimal/Above Optimal 130-159 ? Borderline High 160-189 ? High >or =190 ?Very High Cholesterol/HDL Ratio 3.9 [facility] Comment:HDL:Chol ratio Low R isk 1:3.3-1:4.3, Clinical Correlation essential. Blood specimen (specimen) 05/29/2021 11:38 AM CDT 05/29/2021 11:58 AM CDT Comment:- Narrative [facility] - 05/29/2021 6:29 PM CDT Testing performed at [facility], [address] [place] [address]. CLIA [id number] Phone [phone] Ext [phone] ??Gear Shaver Set Up Operator Shant Rivas MD us Michell Trevizo MD LAB BLOOD ORDERABLES Final Res ult [facility] [address] [phone] * (ABNORMAL) Comprehensive metabolic panel (05/29/2021 11:38 AM CDT) Glucose 133(H) 60 - 100 mg/dL [facility] Comment: Fasting Plasma Glucose (FPG) ?<100 MG/DL Impaired Fasting Glucose (IFG) ? 100-125 MG/DL Provisional Diagnosis of Diabetes Mellitus ?? > or = 126 MG/DL (Diagnosis Must Be Confirmed) BUN 21 8 - 26 mg/dL [facility] Creatinine 0.8 0.7 - 1.4 mg/dL [facility] Glomerular Filtration Rate Estimate 92 >80 mL/min/1.7 3mm2 [facility] Glomerular Filtration Rate Estimate- 106 >80 mL/min/1.7 3mm2 [facility] Comment:The estimated GFR george s not been validated for women or patients with serious comorbid conditions, or with extremes of body size, muscle mass, or nutritional status. Calcium 9.3 8.4 - 10.2 mg/dL [facility] Sodium 137 136 - 145 mmol/L [facility] Potassium 4.0 3.4 - 4.9 mmol/L [facility] Chloride 104 99 - 111 mmol/L [facility] CO2 23.7 21.0 - 32.0 mmol/L [facility] Albumin 4.2 3.5 - 5.0 g/dL [facility] Total Protein 7.5 6.1 - 8.0 g/dL [facility] Bilirubin Total 0.4 0.2 - 1.2 mg/dL [facility] Alkaline Phosphatase 87 40 - 150 U/L [facility] AST 103(H) 5 - 34 U/L [facility] ALT 164(H) 0 - 55 u/L [facility] Blood specimen (specimen) 05/29/2021 11:38 AM CDT 05/29/2021 11:58 AM CDT Comment:- Narrative [facility] - 05/29/2021 6:29 PM CDT Testing performed at [facility], [address] [place] [address]. CLIA [id number] Phone [phone] Ext [phone] ??Gear Shaver Set Up Operator Shant Rivas MD Michell Trevizo MD LAB BLOOD ORDERABLES Final Res ult [employer] [facility] [address] [place] [address] [phone] documented in this encounter Visit Diagnoses Diagnosis Chronic bilateral low back pain with left-sided sciatica- Primary Spinal stenosis, unspecified spinal region Hyperlipidemia, unspecified hyperlipidemia type [facility] current use of opiate analgesic Encounter for long-term (current) use of other medications documented in this encounter Additional Health Concerns Assessment Noted Time A fall risk assessment has been complete d for the patient 04/16/2021 8:08 AM CDT documented as of this encounter Care Teams Resident Care Manager Rn Relationship Specialty Start Date End Date Michell Trevizo MD [address] [place] [address] PCP - General Internal Medicine 05/29/21 02/25/22 Lacey Perdue MD [address] [phone] Referring Physician Infectious Diseases 06/28/18 documented as of this encounter
--- OUTSIDE RECORDS SUMMARY | 2024-11-23 00:26 | XMS_ITS | Encounter Summary ---
Author Organization [employer] Address [address] [place] [address] Care Team Providers Care Lace Pinner Name Role Phone Lacey Perdue MD Unavailable [phone] David Concepcion APRN Primary Care Provide r Reason for Referral * Referral (Routine) - Closed Specialty Diagnoses / Procedures Referred By Celine almaguer Referred To Contact Orthopedic Surgery Diagnoses Chronic wrist pain, left David Concepcion, VALIDATION INTERN [address] [place] [address] Phone: tel: fax: Silver Mcdermott MD [address] [place] [address] [place] [address] Phone: tel: fax: Referral ID Status Reason Start Date Expiration Date V isits Requested Visits Authorized [id number] Closed Specialty Services Required 01/29/2021 01/29/2022 1 1 * Referral (Routine) - Closed Specialty Diagnoses / Procedures Referred By Celine almaguer Referred To Contact Otolaryngology Diagnoses Dysphasia David Concepcion, VALIDATION INTERN [address] [place] [address] Phone: tel: fax: Carson Wolff MD [address] [place] [address] Phone: tel: fax: Referral ID Status Reason Start Date Expiration Date V isits Requested Visits Authorized [id number] Closed Specialty Services Required 01/29/2021 01/29/2022 1 1 Reason for Visit * Reason Comments Results Patient is here to d iscuss xray results. Would also like a referral to ENT. Encounter Details Date Type Department Care Team (Late st Contact Info) Description 01/29/2021 11:00 AM CDT Office Visit [address] [address] David Concepcion, VALIDATION INTERN [address] [place] [address] Dysphasia (Primary Dx); Chronic wrist pain, left Social History Tobacco Use Types Packs/Day Years [...] Sign Reading Time Taken Comments Blood Pressure 104/72 01/29/2021 11:00 AM CDT Pulse 89 01/29/2021 11:00 AM CDT Temperature 36.3 ??C (97.4 ??F) 01/29/2021 11:00 AM C DT Respiratory Rate - - Oxygen Saturation 94% 01/29/2021 11:00 AM CDT Inhaled Oxygen Concentration - - Weight 92.5 kg (204 lb) 01/29/2021 11:00 AM CDT Height 180.3 cm (5' 11 ) 01/29/2021 11:00 AM CDT Body Mass Index 28.45 01/29/2021 11:00 AM CDT documented in this encounter Functional Status * Are you deaf or do you have serious difficulty hearing? Answer Date of Assessment Author No 10/25/2017 2:00 PM INSTITUTIONAL NUTRITION CONSULTANT Deonna Galvan S, VARNISH BLENDER * Are you blind or do you have serious difficulty seeing, even when wearing glasses? Answer Date of Assessment Author No 10/25/2017 2:00 PM INSTITUTIONAL NUTRITION CONSULTANT Deonna Galvan y S, VARNISH BLENDER * Do you have serious difficulty walking or climbing stairs? (5 years old or older) Answer Date of Assessment Author No 10/25/2017 2:00 PM INSTITUTIONAL NUTRITION CONSULTANT Deonna Galvan y S, VARNISH BLENDER * Do you have difficulty dressing or bathing? (5 years old or older) Answer Date of Assessment Author No 10/25/2017 2:00 PM INSTITUTIONAL NUTRITION CONSULTANT Deonna Galvan y S, VARNISH BLENDER * Because of a physical, mental, or emotional condition, do you have difficulty doing errands alone such as visiting a doctor's office or shopping? (15 years old or older) Answer Date of Assessment Author No 10/25/2017 2:00 PM INSTITUTIONAL NUTRITION CONSULTANT Deonna Galvan y S, VARNISH BLENDER documented as of this encounter Mental Status * Because of a physical, mental, or emotional condition, do you have serious difficulty concentrating, remembering, or making decisions? (5 years old or older) Answer Entry Date Author No 10/25/2017 2:00 PM Deonna Padilla S, VARNISH BLENDER documented in this encounter Patient Instructions * Patient Instructions* David Concepcion APNP - 01/29/2021 11:00 AM CDT Please keep appt with Specialist. Follow up with me in 2-3 weeks. Continue current medications. documented in this encounter Progress Notes * David Concepcion APNP - 01/29/2021 11:00 AM CDT Chief Complaint Patient presents with ??? Results Patient is here to discuss xray results. Would also like a referral to ENT. [place] [address] [facility] [address] Dept: [phone] Dept Loc: [phone] Loc Date: 01/29/2021 Name: Edilberto Hawley : 1955 PCP: TIFFANI Galeano Subjective: Patient ID: Edilberto Hawley is a 65 y.o. male. [address] [place] [address] DIAGNOSTIC IMAGING Name: EDILBERTO HAWLEY Ordering Phys: DAVID CONCEPCION Date of : 1955 Gender: M Accession Number: [id number] EXAM DESCRIPTION: XR CERVICAL SPINE 3 VIEWS [...] - Electronically signed by Dayanna Durbin M.D. Reviewed cervical xray with pt. Pt also complains of trouble swallowing and would like referral to GI or Gen. Surgeon for EGD. Pt also complains of generalized left wrist pain that has developed over greater than 3 months. 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 History provided by: Patient Patient's medications, allergies, past medical, surgical, social and family histories were reviewedand updated as appropriate. Review of Systems Constitutional: Negative for activity change, appetite change, fatigue and fever. HENT: Positive for trouble swallowing. Negative for congestion, ear pain, postnasal drip, rhinorrhea, sinus pressure, sinus pain, sneezing and sore throat. Eyes: Negative for photophobia, discharge and itching. Respiratory: Negative for cough, shortness of breath and wheezing. Cardiovascular: Negative for chest pain and palpitations. Gastrointestinal: Negative for abdominal pain, diarrhea, nausea and vomiting. Endocrine: Negative for cold intolerance and heat intolerance. Musculoskeletal: Positive for arthralgias (Left wrist, neck. ). Negative for myalgias and neck pain. Allergic/Immunologic: Negative for environmental allergies and food allergies. Neurological: Negative for weakness, numbness and headaches. Objective: Blood pressure 104/72, pulse 89, temperature 36.3 ??C (97.4 ??F), height 1.803 m (5' 11 ), weight 92.5 kg (204 lb), SpO2 94 %., BMI Body mass index is 28.45 kg/m??. Physical Exam Vitals signs and nursing note reviewed. Constitutional: General: He is not in acute distress. Appearance: Normal appearance. He is well-developed. He is not ill-appearing, toxic-appearing or diaphoretic. HENT: Head: Normocephalic and atraumatic. Right Ear: Hearing and tympanic membrane normal. Left Ear: Hearing and tympanic membrane normal. Nose: Nose normal. No mucosal edema. Right Sinus: No maxillary sinus tenderness. Left Sinus: No maxillary sinus tenderness. Mouth/Throat: Mouth: Mucous membranes are moist. Pharynx: Oropharynx is clear. No oropharyngeal exudate or posterior oropharyngeal erythema. Tonsils: No tonsillar exudate. Eyes: Conjunctiva/sclera: Conjunctivae normal. Pupils: Pupils are equal, round, and reactive to light. Neck: Musculoskeletal: Normal range of motion and neck supple. No muscular tenderness. Cardiovascular: Rate and Rhythm: Normal rate and regular rhythm. Heart sounds: Normal heart sounds. Pulmonary: Effort: Pulmonary effort is normal. No respiratory distress. Breath sounds: Normal breath sounds. No wheezing. Abdominal: General: There is no distension. Tenderness: There is no abdominal tenderness. Lymphadenopathy: Cervical: No cervical adenopathy. Skin: General: Skin is warm and dry. Neurological: Mental Status: He is alert and oriented to person, place, and time. Assessment/Plan: Problem List Items Addressed This Visit None Visit Diagnoses Dysphasia - Primary Relevant Orders Referral to ENT Chronic wrist pain, left Relevant Orders Referral to Orthopedic Surgery Please keep appt with Specialist. Follow up with me in 2-3 weeks. Continue current medications. Next Visit: Follow up in about 4 weeks (around 02/26/2021), or if symptoms worsen or fail to improve. Encounter of: 01/29/2021 Signed: TIFFANI Galeano 02/05/2021 8:48 AM documented in this encounter Plan of Treatment Scheduled Referrals Name Type Priority Associated Diagnoses Order Schedule Referral to ENT Outpatient Referral Routine Dysphasia Ordered: 01/29/2021 Referral to Orthopedic Surgery Outpatient Referral Routine Chronic wrist pain, left Ordered: 01/29/2021 documented as of this encounter Goals Goal Patient Goal Type Associated Problems Recent Progress Patient-Stated? Author Blood Pressure < 140/90 Blood Pressure 134/86(2022 2:25 PM CDT) No David Concepcion APRN documented as of this encounter Visit Diagnoses Diagnosis Dysphasia- Primary Other speech disturbance Chronic wrist pain, left documented in this encounter Care Teams Lace Pinner Relationship Specialty Start Date End Date David Concepcion APRN [address] [facility] [address] [place] [address] PCP - General Family Medicine 08/15/19 04/30/21 Lacey Perdue MD [address] [address] Referring Physician Infectious Diseases 06/28/18 documented as of this encounter
--- OUTSIDE RECORDS SUMMARY | 2024-11-23 00:26 | XMS_ITS | Encounter Summary ---
Author Organization [employer] Address [address] [place] [address] Care Team Providers Care Consumer Marketing Specialist Name Role Phone Lacey Perdue MD Unavailable [phone] Leonard Jasso APRN Primary Care Provide r Encounter Details Date Type Department Care Team (Latest Contact Info) Description 04/07/2021 Travel Social History Tobacco Use Types Packs/Day [...] 2:00 PM JOHN Galvan Am y S, QUALITY INSPECTOR * Do you have difficulty dressing or bathing? (5 years old or older) Answer Date of Assessment Author No 10/25/2017 2:00 PM JOHN Galvan Am y S, QUALITY INSPECTOR * Because of a physical, mental, or emotional condition, do you have difficulty doing errands alone such as visiting a doctor's office or shopping? (15 years old or older) Answer Date of Assessment Author No 10/25/2017 2:00 PM JOHN Galvan Am y S, QUALITY INSPECTOR documented as of this encounter Mental Status * Because of a physical, mental, or emotional condition, do you have serious difficulty concentrating, remembering, or making decisions? (5 years old or older) Answer Entry Date Author No 10/25/2017 2:00 PM JOHN Galvan Am y S, QUALITY INSPECTOR documented in this encounter Plan of Treatment Not on file documented as of this encounter Goals Goal Patient Goal Type Associated Problems Recent Progress Patient-Stated? Author Blood Pressure < 140/90 Blood Pressure 134/86(2022 2:25 PM CDT) No Leonard Jasso APRN documented as of this encounter Visit Diagnoses Not on filedocumented in this encounter Care Teams Consumer Marketing Specialist Relationship Specialty Start Date End Date Leonard Jasso APRN [address] [facility] [address] [place] [address] PCP - General Family Medicine 08/15/19 04/30/21 Lacey Perdue MD [address] [phone] Referring Physician Infectious Diseases 06/28/18 documented as of this encounter
--- OUTSIDE RECORDS SUMMARY | 2024-11-23 00:26 | XMS_ITS | Encounter Summary ---
Author Organization [employer] Address [address] [place] [address] Care Team Providers Care Rug Designer Name Role Phone Lacey Perdue MD Unavailable [phone] Leonard Jasso APRN Primary Care Provide r Reason for Visit * Auth/Cert Specialty Diagnoses / Procedures Referred By Contjessica t Referred To Contact Diagn[place] [address] [place] [address] [address] [place] [address] Phone: tel: fax: Referral ID Status Reason Start Date Expiration Date Visits Re quested Visits Authorized [id number] 12/05/2020 1 1 Encounter Details Date Type Department Care Team (Latest Contact Info) Description 12/18/2020 9:00 AM COTTON [facility] CULLER - 12/18/2020 9:30 AM [facility] Surgery [facility] [address] [place] [id number] Siddhartha Loyd MD [address] [place] [address] [address] [place] [address] ENDO - ESOPHAGOGASTRODUODENOSCOPY Surgery Details Date/Time Status Location OR Service Patient Class Case Class Case Type Trauma Case? 12/18/2020 9:00 AM [facility] Outpatient Procedure/Ga talib Panel 1 Procedure LRB Anes Op Region Wound Class Comments ENDO - ESOPHAGOGASTRODUODENOSCOPY N/A MAC N/A Surgeon Surgeon Role Service Panel Siddhartha Loyd MD Primary General 1 documented in this encounter Social History Tobacco [...] COVID-19? No / Unsure 12/18/2020 7:35 AM [facility]ER documented as of this encounter Last Filed Vital Signs Vital Sign Reading Time Taken Comments Blood Pressure 146/84 12/18/2020 8:05 AM [facility]ER Pulse 63 12/18/2020 8:05 AM C[facility] SEED CULLER Temperature 36.7 ??C (98.1 ??F) 12/18/2020 8:05 AM CS T Respiratory Rate 20 12/18/2020 8:05 AM COT[facility] SEED CULLER Oxygen Saturation 97% 12/18/2020 8:05 AM [facility] SE[facility] CULLER Inhaled Oxygen Concentration - - Weight 92.1 kg (203 lb) 12/18/2020 8:05 AM COTTON SEED CULLER Height 180.3 cm (5' 11 ) 12/18/2020 8:05 AM COT[facility] SEED CULLER Body Mass Index 28.31 12/18/2020 8:05 AM COTTON SEED CULLER documented in this encounter Functional Status * [...] times daily. 60 tablet 5 12/16/2020 1 Diclofenac Sodium 1 % CREA Place [...] hours as needed for Pain. 120 tablet 12/16/2020 1 predniSONE (DELTASONE) 5 MG tablet Six oral day one, five oral day two, four oral day three, three oral day four, two oral day five, one oral day six. 21 tablet 12/11/2020 1 tamsulosin HCl (FLOMAX) 0.4 MG capsule Take 1 capsule by mouth daily. 30 capsule 5 11/04/2018 1 documented as of this encounter Progress Notes * Siddhartha Loyd MD - 12/18/2020 9:22 AM CST Patient seen/examined. No change in Physical Exam, Review of Systems or Plan. ON SEED CULLER documented in this encounter Nursing Notes * Elena Price RN - 12/18/2020 9:50 AM CST Report to Elvis Joshua RN ON SEED CULLER documented in this encounter OR Notes * OR Surgeon - Piper Joshua RN - 12/18/2020 10:09 AM CST Pt up in chair with assist x 2 he remains groggy ON SEED CULLER * Op Note - Siddhartha Loyd MD - 12/18/2020 9:53 AM CST [facility] EGD PROCEDURE NOTE Patient Name : Edilberto Hawley Referring Physician:TIFFANI Galeano Date of Surgery: 12/18/2020 Surgeon: Siddhartha Loyd MD STEEL ERECTOR APPRENTICE: STEEL ERECTOR APPRENTICE: Brenden Perez CRNA Staff: In Room During Procedure No data filed Type of anesthesia: MAC (Managed Anesthesia Care) IV Fluids & Medications: See Anesthesia Record Preoperative Diagnosis/ Indications: Patient with dysphagia symptoms. Postoperative Diagnosis: see procedure details. Procedure: EGD with biopsy. After informed consent had been obtained, the patient was brought to the endoscopy suite. He was given IV sedation and monitored throughout the case by anesthesia. The upper endoscope was passed down through the esophagus and into the stomach and duodenum. Examination the esophagus showed to be normal. There were no signs of masses or stenosis noted. Examination stomach showed a hiatal hernia aswell as generalized gastritis. A biopsy of the antrum was taken for CLOtest. No mass lesions or ulcers were noted in the area. A hiatal hernia was noted on retroflexing the scope. Examination of the duodenum showed to be normal. The patient taught procedure well. Again, no signs of ulcers or mass le sions. We will follow-up on the CLOtest and contact the patient if necessary. I would continue withPPI therapy. I would do another scope in the future as needed. EBL: None. Tissue removed/specimens: * No specimens in log * Biopsies were taken as per the above collection information/dictation. Impression:As above ON SEED CULLER documented in this encounter Plan of Treatment Not on file documented as of this encounter Goals Goal Patient Goal Type Associated Problems Recent Progress Patient-Stated? Author Blood Pressure < 140/90 Blood Pressure 134/86(2022 2:25 PM CDT) No Leonard Jasso APRN documented as of this encounter Procedures Procedure Name Priority Date/Time Associated Diagnosis Comments H PYLORI SCREEN, TISSUE BIOPSY Routine 0 12/18/2020 9:40 AM [facility] Endo - Esophagogastroduodenoscopy 12/18/2020 9:30 AM [facility] see operative report documented in this encounter Results * (ABNORMAL) H Pylori Screen, Tissue Biopsy (12/18/2020 9:40 AM [facility]) H. pylori Screen POS(A) NEG 12/19/2020 11:42 AM [facility] Comment: CALLED TO ELENA Nowak RN @ SURG 12/19/2020 1140 SS Tissue specimen (specimen) STOMACH STRUCTURE / Unknown 12/18/2020 9:40 AM [facility] 12/18/2020 10:37 AM [facility] Siddhartha Loyd MD BODY FLUIDS AND STOOLS ORDERABL ES Final Result [facility] [address] [place], [place] [phone] [facility] [address] [place] [address] * CoronaVirus SARS CoV-2 PCR (12/14/2020 8:15 AM [facility]) Pathologist [facility] SARS-CoV-2 PCR NOT DETECTED NDET 12/15/2020 12:28 PM [facility] Comment: ---- A Not Detected result indicates that SARS-CoV-2 RNA is not present in the patient's specimen. This result may be influenced by the stage of the viral infection and the quality of the specimen collected for testing. Test results should be correlated in the clinical context of each patient. This assay utilizes the [employer] COVID-19 Combo Kit with RNA isolation performed on the [employer] Purification System and RT PCR performed on the [employer] 12Flowdock Flex Real time PCR system. ?? TESTING PERFORMED AT [facility], [facility] [place] [id number] The test was developed and its performance characteristics determined by [facility]. It has not been cleared or approved by the FDA. Such approval is not required for clinical implementation and the test results have been shown to be clinically useful. This laboratory is CAP accredited and CLIA certified to perform high complexity testing. Performed at [place] [id number], ([phone], unless otherwise noted. FIRST TEST UNKNOWN 12/14/2020 3:26 PM [facility] EMPLOYED IN HEALTHCARE NO 12/14/2020 3:26 PM [facility] SYMPTOMATIC DEFINED BY CDC NO 12/14/2020 3:26 PM [facility] HOSPITALIZED NO 12/14/2020 3:26 PM [facility] ICU NO 12/14/2020 3:26 PM [facility] RESIDENT IN CONGREGATE SETTING NO 12/14/2020 3:26 PM [facility] NOT 12/14/2020 3:26 PM [facility] Blood specimen (specimen) NASOPHARYNGEAL SWAB / Unknown 12/14/2020 8:15 AM [facility] 12/14/2020 3:33 PM [facility] us Siddhartha Loyd MD MICROBIOLOGY - GENERAL ORDERABL ES Final Result [facility] [address] [place], [place] [phone] [facility] [address] [place] [address] [facility] [address] [place] [address] documented in this encounter Visit Diagnoses Not on filedocumented in this encounter Administered Medications Inactive Administered Medications - up to 3 most recent administrations Medication Order MAR Action Action Date Dose Rate Site lactated ringers infusion at 20 mL/hr, Intravenous, CONTINUOUS, Starting on Wed12/18/20 at 0900, For 60 days, Pre-opIndications:Gastroesophag eal reflux disease, esophagitis presence not specified,Dysphasia New Bag 12/18/2020 10:27 AM [facility] 20 mL/hr New Bag 12/18/2020 8:34 AM [facility] 20 mL/hr documented in this encounter Active and Recently Administered Medications Times are shown in [facility] SE[facility] C[facility]ER. Continuous Medication Order 12/16/2020 12/17/2020 12/18/2020 lactated ringers infusion at 20 mL/hr, Intravenous, CONTINUOUS, Starting on Wed12/18/20 at 0900, For 60 days, Pre-op 0834 (New Bag - Prov ider: Iman Barrios LPN)1027 (New Bag - Provider: Piper Joshua, RN) documented in this encounter Care Teams Rug Designer Relationship Specialty Start Date End Date Leonard Jasso APRN [address] [facility] [address] [place] [address] PCP - General Family Medicine 08/15/19 04/30/21 Lacey Perdue MD [address] [phone] Referring Physician Infectious Diseases 06/28/18 documented as of this encounter
--- OUTSIDE RECORDS SUMMARY | 2024-11-23 00:26 | XMS_ITS | Encounter Summary ---
Author Organization [employer] Address [address] [place] [address] Care Team Providers Care Political Director Name Role Phone Lacey Perdue MD Unavailable [phone] Leonard Jasso APRN Primary Care Provide r Encounter Details Date Type Department Care Team (Latest Contact Info) Description 01/29/2021 Travel Social History Tobacco Use Types Packs/Day [...] 2:00 PM JOHN Galvan Am y S, SPINNING LATHE OPERATOR HYDRAULIC * Do you have difficulty dressing or bathing? (5 years old or older) Answer Date of Assessment Author No 10/25/2017 2:00 PM JOHN Galvan Am y S, SPINNING LATHE OPERATOR HYDRAULIC * Because of a physical, mental, or emotional condition, do you have difficulty doing errands alone such as visiting a doctor's office or shopping? (15 years old or older) Answer Date of Assessment Author No 10/25/2017 2:00 PM JOHN Galvan Am y S, SPINNING LATHE OPERATOR HYDRAULIC documented as of this encounter Mental Status * Because of a physical, mental, or emotional condition, do you have serious difficulty concentrating, remembering, or making decisions? (5 years old or older) Answer Entry Date Author No 10/25/2017 2:00 PM JOHN Galvan Am y S, SPINNING LATHE OPERATOR HYDRAULIC documented in this encounter Plan of Treatment Not on file documented as of this encounter Goals Goal Patient Goal Type Associated Problems Recent Progress Patient-Stated? Author Blood Pressure < 140/90 Blood Pressure 134/86(2022 2:25 PM CDT) No Leonard Jasso APRN documented as of this encounter Visit Diagnoses Not on filedocumented in this encounter Care Teams Political Director Relationship Specialty Start Date End Date Leonard Jasso APRN [address] [facility] [address] [place] [address] PCP - General Family Medicine 08/15/19 04/30/21 Lacey Perdue MD [address] [phone] Referring Physician Infectious Diseases 06/28/18 documented as of this encounter
--- OUTSIDE RECORDS SUMMARY | 2024-11-23 00:26 | XMS_ITS | Encounter Summary ---
Author Organization [employer] Address [address] [place] [address] Care Team Providers Care Impregnating Helper Name Role Phone Lacey Perdue MD Unavailable [phone] Michell Trevizo MD Primary Care Provider [phone] Reason for Visit * Reason Comments Follow-up Encounter Details Date Type Department Care Team ([facility] st Contact Info) Description 06/05/2021 11:30 AM CDT Office Visit [facility] [address] [place] [phone] Carson Wolff MD [address] [place] [phone] Pre-operative exam (Primary Dx); Nasal obstruction; Deviated nasal septum; Hypertrophy of both inferior nasal turbinates; Chronic maxillary sinusitis; Chronic ethmoidal sinusitis; Chronic sphenoidal sinusitis; Sensorineural hearing loss (SNHL) of both ears Social History Tobacco Use [...] of Assessment Author No 10/25/2017 2:00 PM FIRST SAMPLER Galvan, Am y S, SHERIFF'S DETECTIVE * Are you blind or do you have serious difficulty seeing, even when wearing glasses? Answer Date of Assessment Author No 10/25/2017 2:00 PM FIRST SAMPLER Galvan, Am y S, SHERIFF'S DETECTIVE * Do you have serious difficulty walking or climbing stairs? (5 years old or older) Answer Date of Assessment Author No 10/25/2017 2:00 PM FIRST SAMPLER Galvan, Am y S, SHERIFF'S DETECTIVE * Do you have difficulty dressing or bathing? (5 years old or older) Answer Date of Assessment Author No 10/25/2017 2:00 PM FIRST SAMPLER Galvan, Am y S, SHERIFF'S DETECTIVE * Because of a physical, mental, or emotional condition, do you have difficulty doing errands alone such as visiting a doctor's office or shopping? (15 years old or older) Answer Date of Assessment Author No 10/25/2017 2:00 PM FIRST SAMPLER Galvan, Am y S, SHERIFF'S DETECTIVE documented as of this encounter Mental Status * Because of a physical, mental, or emotional condition, do you have serious difficulty concentrating, remembering, or making decisions? (5 years old or older) Answer Entry Date Author No 10/25/2017 2:00 PM FIRST SAMPLER Galvan, Am y S, SHERIFF'S DETECTIVE documented in this encounter Progress Notes * Carson Wolff MD - 06/05/2021 11:30 AM CDT Images from the original note were not included. Subjective: Edilberto Hawley is a 65 y.o. male who is here for follow up of nasal obstruction, recurrent/chronic sinusitis, hearing loss, swallowing difficulties. LS in [place] on 04/07/2021. PCP is Dr. Trevizo. CT sinus was done on 05/26/2021 - shows CRS (maxillary, ethmoid, sphenoid). Swallow study was done on 05/14/2021 - normal. HPI: He has been compliant with medical therapy for nose/sinuses (oral antihistamine, nasal steroid spray, sinus lavages), although he notes that the salt water irrigations make him cough (he is very sensitive to salt). Se's main sinus symptoms include the need to blow his nose, runny nose, thick nasal discharge, and post nasal drainage. He continues to have nasal obstruction. He continues to have thick nasal drainage. Se has had esophageal biopsies due to severe heartburn. Se does take omeprazole for his acid reflux. Se also has tinnitus bilaterally. Se feels he gets sinus infections often, at least once a month. Se does get on antibiotics. Se has a history of drug use. Se does not eat or drink anything with salt. The salt intake causes him to cough a lot. Se states that he also suffers from dry mouth. No previous nose or sinus surgery. NKDA. There is no history of easy bleeding/bruising. There is no personal or family history of problems with anesthesia. Patient Active Problem List Diagnosis ??? Acute adjustment disorder with depressed mood ??? Chronic bilateral low back pain with sciatica ??? Rotator cuff injury ??? Substance abuse ([facility]) ??? Migraines ??? Chronic back pain greater than 3 months duration ??? Arthritis ??? Staphylococcal arthritis of right ankle ([facility]) ??? Cellulitis of axilla, right ??? Avascular necrosis of bone ([facility]) ??? Spinal stenosis ??? Chronic pain ??? Closed fracture of transverse process of lumbar vertebra with routine healing ??? Femoral acetabular impingement ??? 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 History of repair of left rotator cuff ??? Hyperlipidemia ??? assisted current use of opiate analgesic ??? Osteoarthritis of lumbar spine ??? Pain of left lower extremity ??? Sciatica ??? Sensory hearing loss, bilateral Past Medical History: Diagnosis Date ??? Arthritis ??? Back injury ??? Chronic back pain greater than 3 months duration ??? GERD (gastroesophageal reflux disease) ??? Migraines ??? Osteomyelitis of ankle or foot, acute, right ([facility]) 2018 Stepped on nail ??? Shoulder injury ??? Substance abuse ([facility]) cocaine, crystal meth nothing since 1996 [...] left septal deviation, left maxillary accessory os, bilateral inferior turbinate hypertrophy Nasopharynx: normal Oral Cavity: lips - normal dentition - edentulous mucosa - normal hard palate - normal Oropharynx: mucosa - normal soft palate - normal tonsils - surgically absent Neck: mass - normal thyroid - normal Lymphatic: normal Cardiovascular: normal Respiratory: normal Neuro/Psych.: mood/affect - normal mental status - normal cranial nerves - normal Data Review: Video Swallow Evaluation (05/14/2021): Normal Audiogram/Tympanogram (06/05/2021): Hearing downsloping symmetric SNHL AU Tymps type A AU SNOT-22 Score (04/07/2021) = 34 CT sinus (05/26/2021) - images and report reviewed: Right septal deviation. Bilateral inferior turbinate hypertrophy. Large maxillary accessory ostia vs sinus surgery changes. Mucosal thickening in bilateral maxillary sinuses. Mucosal thickening in scattered ethmoid sinuses. Mucosal thickening on face of bilateral sphenoid sinuses. 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 ? Assessment/Orders: Diagnoses and all orders for this visit: Pre-operative exam - CBC auto differential; Future - Comprehensive metabolic panel; Future - EKG 12-lead; Future - PT/PTT; Future - Coronavirus SARS-CoV-2; Future Nasal obstruction - CBC auto differential; Future - Comprehensive metabolic panel; Future - EKG 12-lead; Future - PT/PTT; Future - Coronavirus SARS-CoV-2; Future Deviated nasal septum - CBC auto differential; Future - Comprehensive metabolic panel; Future - EKG 12-lead; Future - PT/PTT; Future - Coronavirus SARS-CoV-2; Future Hypertrophy of both inferior nasal turbinates - CBC auto differential; Future - Comprehensive metabolic panel; Future - EKG 12-lead; Future - PT/PTT; Future - Coronavirus SARS-CoV-2; Future Chronic maxillary sinusitis - CBC auto differential; Future - Comprehensive metabolic panel; Future - EKG 12-lead; Future - PT/PTT; Future - Coronavirus SARS-CoV-2; Future Chronic ethmoidal sinusitis - CBC auto differential; Future - Comprehensive metabolic panel; Future - EKG 12-lead; Future - PT/PTT; Future - Coronavirus SARS-CoV-2; Future Chronic sphenoidal sinusitis - CBC auto differential; Future - Comprehensive metabolic panel; Future - EKG 12-lead; Future - PT/PTT; Future - Coronavirus SARS-CoV-2; Future Sensorineural hearing loss (SNHL) of both ears - CBC auto differential; Future - Comprehensive metabolic panel; Future - EKG 12-lead; Future - PT/PTT; Future - Coronavirus SARS-CoV-2; Future Edilberto Hawley is a 65 y.o. male with recurrent/chronic rhinosinusitis, nasal obstruction. Hehas deviated septum and bilateral inferior turbinate hypertrophy which are causing his nasal obstruction. He has been on nasal steroid spray for greater than 2 months and has had no significant benefit in his nasal breathing. Alternates side of which is most congested. Has been compliant with oral antihistamine, nasal steroid spray, saline irrigations. He recently stopped saline irrigations because he felt like they were making him cough. He says he is very sensitive to salt because it makes him cough. He is also been on multiple courses of antibiotics including a 3-week course of Augmentin in March. He continues to have thick nasal drainage, congestion, facial pain/pressure. CT sinus showed significant inflammation of the bilateral maxillary sinuses. There are accessory ostia in the bilateral maxillary sinuses. There is scattered mucosal inflammation in the bilateral ethmoid sinuses. There is mild inflammation in the bilateral sphenoid sinuses. He has chronic sinus inflammation and symptoms refractory to medical therapy. I recommend endoscopic sinus surgery. I also recommend septoplasty and bilateral inferior turbinate reduction for nasal obstruction. Hoarse voice. Acid reflux. On omeprazole. Normal laryngoscopy on 04/07/2021. Dysphagia. Normal swallow study on 05/14/2021. He does tend to lean head back due to neck pain and this could make swallowing more difficult. He also has dry mouth. Drink plenty of water. Repeat swallow study if swallowing gets worse. Bilateral downsloping SNHL, tinnitus. Discussed hearing aid evaluation. He will think about it. 1. Pre-operative exam CBC auto differential Comprehensive metabolic panel EKG 12-lead PT/PTT Coronavirus SARS-CoV-2 2. Nasal obstruction CBC auto differential Comprehensive metabolic panel EKG 12-lead PT/PTT Coronavirus SARS-CoV-2 3. Deviated nasal septum CBC auto differential Comprehensive metabolic panel EKG 12-lead PT/PTT Coronavirus SARS-CoV-2 4. Hypertrophy of both inferior nasal turbinates CBC auto differential Comprehensive metabolic panel EKG 12-lead PT/PTT Coronavirus SARS-CoV-2 5. Chronic maxillary sinusitis CBC auto differential Comprehensive metabolic panel EKG 12-lead PT/PTT Coronavirus SARS-CoV-2 6. Chronic ethmoidal sinusitis CBC auto differential Comprehensive metabolic panel EKG 12-lead PT/PTT Coronavirus SARS-CoV-2 7. Chronic sphenoidal sinusitis CBC auto differential Comprehensive metabolic panel EKG 12-lead PT/PTT Coronavirus SARS-CoV-2 8. Sensorineural hearing loss (SNHL) of both ears CBC auto differential Comprehensive metabolic panel EKG 12-lead PT/PTT Coronavirus SARS-CoV-2 Discussed risks, benefits, alternatives and indication of septoplasty with inferior turbinate reduction including, but not limited to: persistent obstruction with need for revision surgery, pain/discomfort and having stents in place for ~1 week, septal perforation, internal nasal adhesions, bleeding, infection. We discussed that the goal of surgery is to improve nasal breathing; if patient snores, it may or may not improve the snoring. It sometimes improves snoring, but snoring is multifactorial and there is a good chance that it will not improve or eliminate snoring. It will not fix allergies or sinus issues related to other causes. It will not change the external appearance of the nose. General risks of surgery under general anesthesia were also discussed including positional injury to nerves in other areas, formation of deep vein thromboses (including plan to mitigate risk), anesthesia-related complications, cardiovascular complications (i.e. heart attack), stroke and . Discussed risks, benefits, alternatives and indication of sinus surgery including, but not limited to: persistent disease, need for revision surgery, facial pain/pressure, injury to surrounding nerves, injury to the eye and its muscles, injury to the brain, CSF leak, septal perforation (if a septoplasty is indicated), bleeding (including severe bleeding and carotid injury). General risks of surgery under general anesthesia were also discussed including positional injury to nerves in other areas, formation of deep vein thromboses (including plan to mitigate risk), anesthesia-related complications, cardiovascular complications (i.e. heart attack), stroke and . Plan: - Continue medical therapy (oral antihistamine, nasal steroid spray, saline sinus lavages) - OR for: Septoplasty, bilateral ITR, bilateral endoscopic sinus surgery (bilateral maxillary antrostomy, bilateral partial ethmoidectomy, bilateral sphenoid balloon sinuplasty), use of image guidance, possible placement of steroid-eluting (Propel) implants. Surgery center. 3 hours. - Pre-op clearance from PCP (recently saw Dr. Trevizo) - Consider hearing aid evaluation for hearing loss - Follow up 1 week after surgery for splint removal. Follow up 1 week after that for debridement. Follow up 1 month after that Carson Wolff M.D., Ph.D. Pediatric and General Otolaryngology [facility] documented in this encounter Plan of Treatment Not on file documented as of this encounter Goals Goal Patient Goal Type Associated Problems Recent Progress Patient-Stated? Author Blood Pressure < 140/90 Blood Pressure 134/86(2022 2:25 PM CDT) No Leonard Jasso APRN documented as of this encounter Results * Coronavirus SARS-CoV-2 (08/28/2021 2:08 PM CDT) SARS-CoV-2 PCR NEGATIVE Negative [facility] Comment:The 2019 novel coron avirus (Sars-CoV-2) target nucleic acids are not detected. NASOPHARYNGEAL SWAB / Unknown 08/28/2021 2:08 PM CDT 08/28/2021 2:14 PM CDT Comment:- Narrative [facility] - 08/28/2021 4:12 PM CDT Surgeon Name: New Date and time of Surgery: 07/16/21 Surgery Location: [address] [place] [address] Evaluate patient for COVID symptoms and acquire sample. Priority 1: Pre-procedure Indication Reason:->Screening Pre-Procedure Testing is performed by the [employer] real-time, reverse retail client manager polymerase chain reaction (RT-PCR) assay. Testing with [...] available to the physician. Testing performed at [facility], [address] [place] [address]. CLIA [id number] Phone [phone] Ext [phone] ??Zoology Professor Shant Rivas MD Carson Wolff MD MICROBIOLOGY - GENERAL OR DERABLES Final Result [facility] [address] [place] [address] [phone] documented in this encounter Visit Diagnoses Diagnosis Pre-operative exam- Primary Preoperative examination, unspecified Nasal obstruction Other diseases of nasal cavity and sinuses Deviated nasal septum Hypertrophy of both inferior nasal turbinates Hypertrophy of nasal turbinates Chronic maxillary sinusitis Chronic ethmoidal sinusitis Chronic sphenoidal sinusitis Sensorineural hearing loss (SNHL) of both ears Nasal obstruction Other diseases of nasal cavity [...] documented as of this encounter Care Teams Impregnating Helper Relationship Specialty Start Date End Date Michell Trevizo MD [address] [place] [address] PCP - General Internal Medicine 05/29/21 02/25/22 Lacey Perdue MD [address] [phone] Referring Physician Infectious Diseases 06/28/18 documented as of this encounter
--- OUTSIDE RECORDS SUMMARY | 2024-11-23 00:26 | XMS_ITS | Encounter Summary ---
Author Organization [employer] Address [address] [place] [address] Care Team Providers Care Travel Director Name Role Phone Lacey Perdue MD Unavailable [phone] David Concepcion APRN Primary Care Provide r Encounter Details Date Type Department Care Team (Latest Contact Info) Description 01/27/2021 4:30 PM CDT - 01/27/2021 11:59 PM CDT Hospital Encounter [facility] General Radiology [address] [place] [phone] Chronic neck pain Discharge Disposition: Home - Discharge to [...] of Assessment Author No 10/25/2017 2:00 PM COLOR RECEIVER Deonna Galvan, GEORGE * Are you blind [...] hours as needed for Pain. 120 tablet 01/10/2021 1 documented as of this encounter Plan of Treatment Not on file documented as of this encounter Goals Goal Patient Goal Type Associated Problems Recent Progress Patient-Stated? Author Blood Pressure < 140/90 Blood Pressure 134/86(2022 2:25 PM CDT) No David Concepcion, CAREER DEVELOPMENT FACILITATOR documented as of this encounter Procedures Procedure Name Priority Date/Time Associated Diagnosis Comments XR CERVICAL SPINE 3 VIEWS OR LESS Routine 01/27/2021 4:49 PM CDT Chronic neck pain documented in this encounter Results * XR Cervical Spine 3 Views or Less (01/27/2021 4:49 PM CDT) Anatomical Region Laterality Modality C-spine, T-spine, Neck Computed Radiography 01/27/2021 4:41 PM CDT Impressions 01/27/2021 5:55 PM CDT Degenerative disc space narrowing throughout the cervical spine without fracture or malalignment. THIS IS AN ELECTRONICALLY VERIFIED FINAL REPORT 01/27/2021 5:54 PM - Electronically signed by Dayanna Arthur 01/27/2021 5:[address] PM CDT [address] [place] [address] DIAGNOSTIC IMAGING Name: ROSARIO DURANDEd DELONG ??Ordering Phys: DAVID CONCEPCION Date of : 1955 ?Gender: M ??Accession Number: [id number] EXAM DESCRIPTION: XR CERVICAL SPINE 3 VIEWS OR LESS REASON FOR STUDY: Fell off truck 2 weeks prior. ??Hit right shoulder and right side of neck. TECHNIQUE: Three view cervical spine COMPARISON: None. FINDINGS: ALIGNMENT: Alignment of the cervical spine is within normal limits. Vertebral body: Vertebral body heights are within normal limits. ?? No acute fracture. DISCS: There is diffuse degenerative disc space narrowing. HARDWARE: None. SOFT TISSUES: The prevertebral soft tissues are within normal limits. LUNG APICES: Clear Procedure Note Dayanna Durbin MD - 01/27/[address] [place] [phone] DIAGNOSTIC IMAGING Name: EDILBERTO DURAND Ordering Phys: DAVID CONCEPCION Date of : 1955 Gender: M Accession Number: [id number] EXAM DESCRIPTION: XR CERVICAL SPINE 3 VIEWS [...] Dayanna Durbin M.D. David Concepcion APRN IMG DIAGNOSTIC IMAGIN G ORDERABLES Final Result documented in this encounter Visit Diagnoses Diagnosis Chronic neck pain Cervicalgia documented in this encounter Care Teams Travel Director Relationship Specialty Start Date End Date David Concepcion APRN [address] [place] [address] [address] [place] [address] PCP - General Family Medicine 08/15/19 04/30/21 Lacey Perdue MD [address] [facility] [address] [place] [phone] Referring Physician Infectious Diseases 06/28/18 documented as of this encounter
--- OUTSIDE RECORDS SUMMARY | 2024-11-23 00:26 | XMS_ITS | Encounter Summary ---
Author Organization [employer] Address [address] [place] [address] Care Team Providers Care Clinical Mental Health Counselor Name Role Phone Lacey Perdue MD Unavailable [phone] Patient, None Per Primary Care Provider Unavaila Michell Abdi MD Primary Care Provider [phone] Encounter Details Date Type Department Care Team (Latest Contact Info) Description 05/14/2021 1:30 PM CDT Clinical Support [facility] Physical Therapy [address] [place] [address] Theodora Dangelo, PLANT SUPERINTENDENT [address] [place] [address] Oropharyngeal dysphagia (Primary Dx) Social History Tobacco Use Types [...] Author No 10/25/2017 2:00 PM Deonna Padilla, FEED WEIGHER * Are you blind or do you have serious difficulty seeing, even when wearing glasses? Answer Date of Assessment Author No 10/25/2017 2:00 PM Deonna Padilla, FEED WEIGHER * Do you have serious difficulty walking or climbing stairs? (5 years old or older) Answer Date of Assessment Author No 10/25/2017 2:00 PM Deonna Padilla, FEED WEIGHER * Do you have difficulty dressing or bathing? (5 years old or older) Answer Date of Assessment Author No 10/25/2017 2:00 PM Deonna Padilla, FEED WEIGHER * Because of a physical, mental, or emotional condition, do you have difficulty doing errands alone such as visiting a doctor's office or shopping? (15 years old or older) Answer Date of Assessment Author No 10/25/2017 2:00 PM Deonna Padilla, FEED WEIGHER documented as of this encounter Mental Status * Because of a physical, mental, or emotional condition, do you have serious difficulty concentrating, remembering, or making decisions? (5 years old or older) Answer Entry Date Author No 10/25/2017 2:00 PM Deonna Padilla ARNP documented in this encounter Progress Notes * Theodora Dangelo, PLANT SUPERINTENDENT - 05/14/2021 1:30 PM CDT Study Desc: SWALLOWING FUNCTION W CINE VIDEO [facility] PATIENT NAME: Edilberto Hawley : 1955 DATE OF EVALUATION: 05/14/2021 REFERRING PHYSICIAN: Dr. New MD PMH: Past Medical History: Diagnosis Date ??? Arthritis ??? Back injury ??? Chronic back pain greater than 3 months duration ??? GERD (gastroesophageal reflux disease) ??? Migraines ??? Osteomyelitis of ankle or foot, acute, right (HCC) 2018 Stepped on nail ??? Shoulder injury ??? Substance abuse ([facility]) cocaine, crystal meth nothing since 1996 ??? Wrist disorder R frzn wrist, 2 screws ACTIVE PROBLEMS: Patient Active Problem List Diagnosis ??? Acute [...] of left rotator cuff ??? Hyperlipidemia ??? skilled nursing current use of opiate analgesic ??? Osteoarthritis of lumbar spine ??? Pain of left lower extremity ??? Sciatica CLINICAL HISTORY/SUBJECTIVE REPORT: Pt presents as a 65 yo male with complaints of choking on liquids and solids. Pt described this as the feeling of them getting stuck, rather than aspiration or true choking requiring the Heimlich maneuver. Pt stated this occurs approximately 2x/day and began 4-5 months ago. Pt also reports significant xerostomia. Pt also reported voice changes, however his voice sounded WNL to this PLANT SUPERINTENDENT. Slight hoarseness noted only. CLINICAL OBSERVATIONS AND EXAM: Cognitive/Mental Status: Patient appears alert, oriented with no cognitive impairments that will interfere with therapy intervention. Ambulatory status: Fully ambulatory PROCEDURE: This procedure was performed in conjunction with radiology using the lateral plane. The patient was given thin liquid, puree consistency, and cracker with barium paste. THIN LIQUID: Consecutive swallows via open cup revealed flash penetration x3/5 trials, which is deemed WNL. PUREE: Mild lingual and trace valleculae residual with spontaneous double swallow, clearing residueto normal limits. SOLID: Prolonged mastication due to being edentulous. Mild-moderate oral and valleculae residual with spontaneous multiple swallows, clearing residue to normal limits. COMPENSATORY STRATEGIES ATTEMPTED: Double Swallow: Effective; pt uses spontaneously SUMMARY: Oral Phase: WFL; pt presents with no labial escape, adequate bolus cohesion and manipulation, prolonged yet adequate mastication, normal bolus transit time, mild oral residual clearing to normal limits with double swallow strategy, and good velopharyngeal closure. Pharyngeal Phase: WFL; normal pharyngeal initiation of swallow, adequate laryngeal elevation and anterior hyoid excursion, complete epiglottal inversion, good laryngeal vestibular closure, adequate pharyngeal stripping wave, adequate base of tongue retraction, mild pharyngeal residual clearing to normal limits with double swallow strategy. Trace penetration with spontaneous evacuation; no aspiration. Patient was using slight head back posture throughout VFSS. PLANT SUPERINTENDENT asked why pt was in this position and he stated it was due to neck pain. This position may increase his risk for aspiration. Results and recommendations discussed and agreed to by patient. RECOMMENDATIONS: 1. Based on the results of this swallow study, the safest diet is regular with thin liquids. 2. Compensatory Strategies: Avoid head back posture, continue double/multiple swallow after every consistency as needed, liquid wash after solid consistencies if needed. 3. Refer for repeat VFSS if symptoms worsen 4. Aspiration precautions: Alert/reduce distractions, upright 90 degrees, small bolus size, eat slowly, monitor swallowing for s/s of aspiration, oral hygiene 2x/day PLAN OF CARE: No further therapy required. Thank you for this referral. Please contact me at [phone]. [phone] or e- mail at [email or web address] with any questions or concerns regarding this evaluation or plan of care. Professionally, Theodora Dangelo M.A. [facility]-PLANT SUPERINTENDENT * Carson Wolff MD - 05/14/2021 1:30 PM CDT I have reviewed the notes, assessments, and/or procedures performed by EARNEST Naylor, and I concur with her documentation of Edilberto Hawley. documented in this encounter Plan of Treatment Not on file documented as of this encounter Goals Goal Patient Goal Type Associated Problems Recent Progress Patient-Stated? Author Blood Pressure < 140/90 Blood Pressure 134/86(2022 2:25 PM CDT) No Leonard Jasso APRN documented as of this encounter Visit Diagnoses Diagnosis Oropharyngeal dysphagia- Primary Dysphagia, oropharyngeal phase documented in this encounter Additional Health Concerns Assessment Noted Time A fall risk assessment has been complete d for the patient 04/16/2021 8:08 AM CDT documented as of this encounter Care Teams Clinical Mental Health Counselor Relationship Specialty Start Date End Date Patient, None Per PCP - General 05/01/21 05/28/21 Michell Trevizo MD [facility] [place] [address] PCP - General Internal Medicine 05/29/21 02/25/22 Lacey Perdue MD [address] [place] [phone] Referring Physician Infectious Diseases 06/28/18 documented as of this encounter
--- OUTSIDE RECORDS SUMMARY | 2024-11-23 00:26 | XMS_ITS | Encounter Summary ---
Author Organization [employer] Address [address] [place] [address] Care Team Providers Care Paper Inspector Name Role Phone Lacey Perdue MD Unavailable [phone] Leonard Jasso APRN Primary Care Provide r Reason for Visit * Auth/Cert Specialty Diagnoses / Procedures Referred By Contjessica t Referred To Contact Diagnoses hearttburn Siddhartha Loyd MD [address] [facility] [address] [place] [address] Phone: tel: fax: Referral ID Status Reason Start Date Expiration Date Visits Re quested Visits Authorized [id number] 12/05/2020 1 1 Encounter Details Date Type Department Care Team (Latest Contact Info) Description 12/18/2020 7:35 AM ASSISTANT FOOD SERVICE MANAGER - 12/18/2020 10:28 AM [facility] Encounter [facility] [address] [place] [address] [place] [address] [place] [address] [address] [place] [address] Pre-op exam (Primary Dx); Gastroesophageal reflux disease, esophagitis presence not specified; Dysphasia Discharge Disposition: Home - Discharge to Home [...] COVID-19? No / Unsure 12/18/2020 7:35 AM ASSISTANT FOOD SERVICE MANAGER documented as of this encounter Last Filed Vital Signs Vital Sign Reading Time Taken Comments Blood Pressure 131/82 12/18/2020 10:07 AM ASSISTANT FOOD SERVICE MANAGER Pulse 67 12/18/2020 10:07 AM ASSISTANT FOOD SERVICE MANAGER Temperature 36.8 ??C (98.2 ??F) 12/18/2020 10:[address] Respiratory Rate 16 12/18/2020 10:07 AM ASSISTANT FOOD SERVICE MANAGER Oxygen Saturation 95% 12/18/2020 10:07 AM ASSISTANT FOOD SERVICE MANAGER Inhaled Oxygen Concentration - - Weight 92.1 kg (203 lb) 12/18/2020 8:05 AM ASSISTANT FOOD SERVICE MANAGER Height 180.3 cm (5' 11 ) 12/18/2020 8:05 AM ASSISTANT FOOD SERVICE MANAGER Body Mass Index 28.31 12/18/2020 8:05 AM ASSISTANT FOOD SERVICE MANAGER documented in this encounter Functional Status [...] Physical Exam, Review of Systems or Plan. STANT FOOD SERVICE MANAGER documented in this encounter Nursing Notes * Elena Price RN - 12/18/2020 9:50 AM CST Report to Elvis Joshua RN STANT FOOD SERVICE MANAGER documented in this encounter OR Notes * OR Surgeon - Piper Joshua RN - 12/18/2020 10:09 AM CST Pt up in chair with assist x 2 he remains groggy STANT FOOD SERVICE MANAGER * Op Note - Siddhartha Loyd MD - 12/18/2020 9:53 AM CST [facility] EGD PROCEDURE NOTE Patient Name : Edilberto Hawley Referring Physician:TIFFANI Galeano Date of Surgery: 12/18/2020 Surgeon: Siddhartha Loyd MD SYSTEMS LEAD: SYSTEMS LEAD: Brenden Perez CRNA Staff: In Room During [...] by anesthesia. The upper endoscope was passed downthrough the esophagus and into the stomach and [...] per the above collection information/dictation. Impression:As above STANT FOOD SERVICE MANAGER documented in this encounter Plan of [...] TISSUE BIOPSY Routine 0 12/18/2020 9:40 AM ASSISTANT FOOD SERVICE MANAGER Endo - Esophagogastroduodenoscopy 12/18/2020 9:30 AM ASSISTANT FOOD SERVICE MANAGER see operative report documented in this encounter Results * (ABNORMAL) H Pylori Screen, Tissue Biopsy (12/18/2020 9:40 AM ASSISTANT FOOD SERVICE MANAGER) H. pylori Screen POS(A) NEG 12/19/2020 11:42 AM ASSISTANT FOOD SERVICE MANAGER [facility] Comment: CALLED TO ELENA Nowak RN @ SURG 12/19/2020 1140 SS Tissue specimen (specimen) STOMACH STRUCTURE / Unknown 12/18/2020 9:40 AM ASSISTANT FOOD SERVICE MANAGER 12/18/2020 10:37 AM ASSISTANT FOOD SERVICE MANAGER Siddhartha Loyd MD BODY FLUIDS AND STOOLS ORDERABL ES Final Result [facility] [address] [place], [place] [phone] [facility] [address] [place] [address] * CoronaVirus SARS CoV-2 PCR (12/14/2020 8:15 AM ASSISTANT FOOD SERVICE MANAGER) SARS-CoV-2 PCR NOT DETECTED NDET 12/15/2020 12:28 PM [facility] Comment: ---- A Not Detected result indicates that SARS-CoV-2 RNA is not present in the patient's specimen. This result may be influenced by the stage of the viral infection and the quality of the specimen collected for testing. Test results should be correlated in the clinical context of each patient. This assay utilizes the [employer] COVID-19 Combo Kit with RNA isolation performed on the [employer] Purification System and RT PCR performed on the [facility] [employer] Real time PCR system. ?? TESTING [place] [address] The test was developed and its performance characteristics determined by [facility]. It has not been cleared or approved by the FDA. Such approval is not required for clinical implementation and the test results have been shown to be clinically useful. This laboratory is CAP accredited and CLIA certified to perform high complexity testing. [place] [address], ([phone], unless otherwise noted. FIRST TEST UNKNOWN 12/14/2020 3:26 PM [facility] EMPLOYED IN HEALTHCARE NO 12/14/2020 3:26 PM [facility] SYMPTOMATIC DEFINED BY CDC NO 12/14/2020 3:26 PM [facility] HOSPITALIZED NO 12/14/2020 3:26 PM [facility] ICU NO 12/14/2020 3:26 PM [facility] RESIDENT IN CONGREGATE SETTING NO 12/14/2020 3:26 PM [facility] NOT 12/14/2020 3:26 PM [facility] Blood specimen (specimen) NASOPHARYNGEAL SWAB / Unknown 12/14/2020 8:15 AM ASSISTANT FOOD SERVICE MANAGER 12/14/2020 3:33 PM ASSISTANT FOOD SERVICE MANAGER Siddhartha Loyd MD MICROBIOLOGY - GENERAL ORDERABL ES Final Result [facility] [address] [place], [place] [phone] [facility] [address] [place] [address] [facility] [address] [place] [address] documented in this encounter Visit Diagnoses Diagnosis Pre-op exam- Primary Preoperative examination, unspecified Gastroesophageal reflux disease, esophagitis presence not specified Dysphasia Other speech disturbance documented in this encounter Administered Medications Inactive Administered Medications - up to 3 most recent administrations Medication Order MAR Action Action Date Dose Rate Site lactated ringers infusion at 20 mL/hr, Intravenous, CONTINUOUS, Starting on Wed12/18/20 at 0900, For 60 days, Pre-opIndications:Gastroesophag eal reflux disease, esophagitis presence not specified,Dysphasia New Bag 12/18/2020 10:27 AM ASSISTANT FOOD SERVICE MANAGER 20 mL/hr New Bag 12/18/2020 8:34 AM ASSISTANT FOOD SERVICE MANAGER 20 mL/hr documented in this encounter Active and Recently Administered Medications Times are shown in ASSISTANT FOOD SERVICE MANAGER. Continuous Medication Order 12/16/2020 12/17/2020 12/18/2020 lactated ringers infusion at 20 mL/hr, Intravenous, CONTINUOUS, Starting on Wed12/18/20 at 0900, For 60 days, Pre-op 0834 (New Bag - Prov ider: Iman Barrios LPN)1027 (New Bag - Provider: Piper Joshua RN) documented in this encounter Care Teams Paper Inspector Relationship Specialty Start Date End Date Leonard Jasso APRN [address] [facility] [address] [place] [address] PCP - General Family Medicine 08/15/19 04/30/21 Lacey Perdue MD [address] [phone] Referring Physician Infectious Diseases 06/28/18 documented as of this encounter
--- OUTSIDE RECORDS SUMMARY | 2024-11-23 00:26 | XMS_ITS | Encounter Summary ---
Author Organization [facility] Address [address] [place] [address] Care Team Providers Care Floral Designer Salesperson Name Role Phone Lacey Perdue MD Unavailable [phone] Leonard Jasso APRN Primary Care Provide r Reason for Visit * Reason Comments New Patient * Referral (Routine) - Closed Specialty Diagnoses / Procedures Referred By Contjessica t Referred To Contact Pain Medicine Diagnoses Bulging of cervical intervertebral disc Leonard Jasso, DRY GOODS CLERK [address] [place] [address] Phone: tel: fax: Edilberto Gann MD [address] [place] [address] Phone: tel: fax: Referral ID Status Reason Start Date Expiration Date V isits Requested Visits Authorized [id number] Closed Specialty Services Required 03/14/2021 03/14/2022 1 1 Encounter Details Date Type Department Care Team (Late st Contact Info) Description 04/16/2021 7:45 AM CDT Office Visit [facility] [address] [place] [phone] Leonard Jasso, DRY GOODS CLERK [address] [place] [address] Emmanuel Jefferson, ALFONSO [address] [place] [id number] Myofascial muscle pain (Primary Dx); Cervicalgia; Cervical spondylosis without myelopathy; Degeneration of cervical intervertebral disc; Cervical radiculopathy; Thoracic spine pain; Lumbar spine pain; Degeneration of lumbar or lumbosacral intervertebral disc; Lumbar radiculopathy; Lumbosacral spondylosis without myelopathy; Sacroiliac pain Social History Tobacco Use Types Packs/Day [...] Sign Reading Time Taken Comments Blood Pressure 156/84 04/16/2021 8:11 AM CDT Pulse 68 04/16/2021 8:11 AM CDT Temperature - - Respiratory Rate - - Oxygen Saturation 94% 04/16/2021 8:11 AM CDT Inhaled Oxygen Concentration - - [...] encounter Patient Instructions * Patient Instructions* Emmanuel Jefferson, MOWING MACHINE OPERATOR - 04/16/2021 7:45 AM CDT Images from the original note were not included. Pre Procedure Checklist Dear Patient, Before you have a procedure at [facility], please take note of the following items: LENDING MANAGER You must have a line haul truck driver accompany you at the time of the discharge from the clinic, as you will not be able to drive or operate machinery for 6 hours after the procedure. IF YOU DO NOT HAVE A LENDING MANAGER, YOU WILL BE ASKED TO RESCHEDULE! INFECTION If you have had any recent infections such as cold, urinary tract infection, etc., or have been on antibiotics or steroids within the last 30 days, please call the clinic. If you are prescribed antibiotics for an infection, please take them, YOU CAN NOT HAVE A PROCEDURE IF YOU HAVE AN ACTIVE INFECTION! BLOOD THINNERS You do not have to hold blood thinners for Trigger point injections, GONB's, or joint injections. ALLERGIES Please notify the office if you have an allergy to cortisone, numbing medicine, chlorhexidine, Hibiclens, shellfish, or contrast dye. Also, please let your doctor know if you have any chronic kidney disease. EATING AND DRINKING We would prefer that you eat a light meal prior to your procedure and You may take your regular medications. WHAT TO WEAR Please wear loose fitting clothing that does not have metal buttons, snaps, or zippers. There is a chance chlorhexidine could get on your clothing, a gown is available if you would prefer. If you have any questions, please contact the clinic at [phone] ext. [phone]. Thank you , [facility] Learning About Trigger Point Injections A trigger point is a painful knot in a tight band of muscle. A trigger point often causes pain to be felt in other areas, too. For example, a trigger point in the neck or upper back can cause pain inthe head. Trigger point injections are a mixture of steroid and numbing medication into the muscle to help relieve the pain. How is a trigger point injection done? A trigger point is found by pressing around the painful area. This may cause your muscle to hurt ortwitch. The area is cleaned and imaged using Ultrasound guidance. This is a safer way of injecting in the muscles or joints, it helps show the medication expanding into the muscle and also helps showthe lung field. The steroid and numbing solution will be injected into the trigger point with a small needle. If you have more than one trigger point in the muscle, your doctor may repeat the process. Your doctor may stretch the area to help the muscle relax. He or she may also show you how to moveand stretch the muscle yourself. The procedure takes about 10 to 15 minutes. What is a GONB injection? The greater occipital nerves is responsible for most of the feeling in the back and top of your head. Irritation or inflammation of this nerve can cause headaches. People with occipital nerve irritation often report pain starting from the base of their skull on one side of their head. An occipital nerve block is one of the most common procedures to provide painrelief for migraines and chronic headaches. These injections are given under Ultrasound guidance, to check for blood flow to the area. A solution of steroid and numbing medication will be injected onone or both sides of the back of the head, this is usually painless except for numbing medication which will sting. You will also experience lots of pressure in the back of the head. What can you expect after a trigger point injection? The area may feel a bit numb for a few hours, once the numbness starts to wear off the injection site may be sore for a few days. Other problems from trigger point injections are rare. There is a chance of skin infection at the injection site. Trigger point injections may reduce some or all of yourpain. But the pain can come back after the medicine wears off. If your pain comes back, your doctor may suggest more shots or other treatment for longer-lasting relief. Follow-up care is a whalen part of your treatment and safety. Be sure to make and go to all appointments, and call your doctor if you are having problems. It's also a good idea to know your test resultsand keep a list of the medicines you take. 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 . The patient first noted symptoms several years ago exacerbating over the last 6 months. It is felt mostly in the lower back and neck. He states his neck pain is more painful than his low back at thispoint. The patient denies numbness and tingling of the lower extremities. He does report pain in his arms. The patient denies a previous history of spinal surgery or injections. The pain level today is reported to be 2/10.The pain occurs Continuously , temporal association is Morning and Evening , and overall the pain intensity, since it began, has been No Change. The pain is described by the patient with the following characteristics: Cramping, Stabbing and Throbbing. The pain is made worse by Standing, Movement and Bending Forward. The pain is made better byLying Down. Patient denies problems with sleeping secondary to the pain. Patient denies problems with coping, anxiety or depression associated with the pain. Patient denies weakness associated with the pain. Patient denies bowel/bladder incontinence. Outside reports reviewed: office notes and radiology reports. Patient's problem list, medications, allergies, past medical, surgical, social and family historieswere reviewed and updated as appropriate. Of note, patient is currently on anticoagulation therapy with ASA. Review of Systems A comprehensive review of systems was negative except for the following pertinent findings: Ears, nose, mouth, throat, and face: positive for tinnitus Respiratory: positive for dyspnea on exertion Musculoskeletal: positive for arthralgias, back pain, myalgias and stiff joints Behavioral/Psych: positive for tobacco use Detailed comprehensive review of systems as noted in scanned new patient form. Objective: PHYSICAL EXAM Vital Signs reviewed GEN: [...] Gait Normal/ functional without assistive device ; abductor 5/5; quadraceps 5/5; hamstrings 5/5; adductors 5/5; iliopsoas 5/5, anterior tibial 5/5; gastrosolues 5/5; EHL 5/5; peroneal posterior tibial 5/5; extremity atrophy is absent; tenderness lumbar spine, lumbar paraspinals, quadratus lumborum, sacroiliac joints, piriformis; positive facet loading bilaterally, positive Froylan's/JAIRO/SIjoint compression/thigh thrust bilaterally, positive straight leg raise bilaterally Upper extremity strength functional and symmetrical, proximal to distal and flexion to extension; no gross deformity or atrophy noted in the upper extremities; active range of motion is normal; tenderness cervical spine, cervical paraspinals, superior trapezius; negative spurlings bilaterally, posit celine facet loading bilaterally The following muscles (Right [...] cervical radiculopathy with an underlying facet syndrome. Therefore, at this time we will proceed with trigger point injections. Risks and benefits were discussed in detail [...] treatments unless it is optimally managed. Plan: I discussed the following treatment options: Cortisone injection discussed Questions solicited and answered Consider checking B12 and folate levels to evaluate for any deficiencies; as this has been shown inthe scientific literature to worsen myofascial pain if not replenished. Myofascial pain: Agree with and continue baclofen [...] between patient and prescriber. Consider referral to [facility], for evaluation of opiate risk and any [...] therapeutic options we will offer the patient trigger point injections to the upper back and neck based on exam and history as well as the image findings. Depending on the efficacyof these injections we can consider repeating. If patient does not respond to the [...] above recommendations and treatment options as needed. Please send a copy to referring provider, Leonard Jasso, *, who is also patient's primary care provider. Thank you very much for allowing me to support you in the care of your patient. Pleasedo not hesitate to contact me if I can be of any further assistance. 50% of this clinic visit was spent with direct interaction during my counseling, education and instruction with this patient. This document was dictated using Surfly; training and development rep variances may occur * Edilberto Gann MD - 04/16/2021 7:45 AM CDT I have reviewed the notes, assessments, and/or procedures performed by Emmanuel Jefferson NP, and I concur with her documentation of Edilberto Hawley. documented in this encounter Plan of Treatment Scheduled Referrals Name Type Priority Associated Diagnoses Orde r Schedule Referral to Pain Management Outpatient Referral Routine Bulging of cervical intervertebral disc Ordered: 03/14/2021 documented as of this encounter Goals Goal Patient Goal Type Associated Problems Recent Progress Patient-Stated? Author Blood Pressure < 140/90 Blood Pressure 134/86(2022 2:25 PM CDT) No Leonard Jasso, ANGIE documented as of this encounter Visit Diagnoses Diagnosis Myofascial muscle pain- Primary Mylagia and myositis, unspecified Cervicalgia Cervical spondylosis without myelopathy Degeneration of cervical intervertebral disc Cervical radiculopathy Brachial neuritis or radiculitis nos Thoracic spine pain Pain in thoracic spine Lumbar spine pain Lumbago Degeneration of lumbar or lumbosacral intervertebral disc Lumbar radiculopathy Thoracic or lumbosacral neuritis or radiculitis, unspecified Lumbosacral spondylosis without myelopathy Sacroiliac pain Disorders of sacrum documented in this encounter Additional Health Concerns Assessment Noted Time A fall risk assessment has been complete d for the patient 04/16/2021 8:08 AM CDT documented as of this encounter Care Teams Floral Designer Salesperson Relationship Specialty Start Date End Date Leonard Jasso ANGIE [address] [facility] [address] [place] [address] PCP - General Family Medicine 08/15/19 04/30/21 Lacey Perdue MD [address] [address] Referring Physician Infectious Diseases 06/28/18 documented as of this encounter
--- OUTSIDE RECORDS SUMMARY | 2024-11-23 00:26 | XMS_ITS | Encounter Summary ---
Author Organization [facility] Address [address] [place] [address] Care Team Providers Care Financial Assistance Advisor Name Role Phone Lacey Perdue MD Unavailable [phone] Leonard Jasso APRN Primary Care Provide r Reason for Referral * Referral (Routine) - Closed Specialty Diagnoses / Procedures Referred By Celine almaguer Referred To Contact Pain Medicine Diagnoses Bulging of cervical intervertebral disc Leonard Jasso APRN [address] [place] [address] Phone: tel: fax: Edilberto Gann MD [address] [place] [address] Phone: tel: fax: Referral ID Status Reason Start Date Expiration Date V isits Requested Visits Authorized [id number] Closed Specialty Services Required 03/14/2021 03/14/2022 1 1 Encounter Details Date Type Department Care Team (Late st Contact Info) Description 03/14/2021 Orders Only [facility] [address] [place], [place] [id number] Svetlana Rodgers, CONCRETE WALL GRINDER OPERATOR [address] [facility] [address] [place] [address] Bulging of cervical intervertebral disc (Primary Dx) Social History Tobacco Use Types [...] Author No 10/25/2017 2:00 PM Deonna Padilla, MANAGER AREA * Are you blind or do you have serious difficulty seeing, even when wearing glasses? Answer Date of Assessment Author No 10/25/2017 2:00 PM Deonna Padilla, MANAGER AREA * Do you have serious difficulty walking or climbing stairs? (5 years old or older) Answer Date of Assessment Author No 10/25/2017 2:00 PM Deonna Padilla, MANAGER AREA * Do you have difficulty dressing or bathing? (5 years old or older) Answer Date of Assessment Author No 10/25/2017 2:00 PM Deonna Padilla, MANAGER AREA * Because of a physical, mental, or [...] as of this encounter Visit Diagnoses Diagnosis Bulging of cervical intervertebral disc- Primary documented in this encounter Care Teams Financial Assistance Advisor Relationship Specialty Start Date End Date Leonard Jasso APRN [address] [facility] [address] [place] [address] PCP - General Family Medicine 08/15/19 04/30/21 Lacey Perdue MD [address] [address] Referring Physician Infectious Diseases 06/28/18 documented as of this encounter
--- OUTSIDE RECORDS SUMMARY | 2024-11-23 00:26 | XMS_ITS | Encounter Summary ---
Author Organization [employer] Address [address] [place] [address] Care Team Providers Care Bookkeeping Assistant Name Role Phone Lacey Perdue MD Unavailable [phone] Patient, None Per Primary Care Provider Unavaila ble Reason for Visit * Reason Comments Difficulty Swallowing ([facility]) * Diagnostic Radiology (Routine) - Closed Specialty Diagnoses / Procedures Referred By Celine t Referred To Contact Diagnoses Sinusitis, unspecified chronicity, unspecified location Gastroesophageal reflux disease, unspecified whether esophagitis present Dysphagia, unspecified type Recurrent sinusitis Procedures Swallowing Function w Cine Video Brayden Wolff MD [address] [place] [phone] Phone: tel: fax: Referral ID Status Reason Start Date Expiration Date Visits Re quested Visits Authorized [id number] Closed 05/06/2021 11/07/2022 1 1 Encounter Details Date Type Department Care Team (Latest Contact Info) Description 05/14/2021 1:30 PM CDT Clinical Support [facility] [address] [place] [address] Brayden Wolff MD [address] [place] [phone] Radha Chandler, RTR [address] [place] [address] Sinusitis, unspecified chronicity, unspecified location; Gastroesophageal reflux disease, unspecified whether esophagitis present; Dysphagia, unspecified type; Recurrent sinusitis Social History Tobacco Use Types [...] Procedure Name Priority Date/Time Associated Diagnosis Comments SWALLOWING FUNCTION W CINE VIDEO Routine 05/14/2021 1:00 PM CDT Sinusitis, unspecified chronicity, unspecified location Gastroesophageal reflux disease, unspecified whether esophagitis present Dysphagia, unspecified type Recurrent sinusitis documented in this encounter Results * Swallowing Function w Cine Video (05/14/2021 1:00 PM CDT) Anatomical Region Laterality Modality Radiographic Jazz ging 05/14/2021 1:00 PM CDT Narrative 05/14/2021 3:[address] PM [address]T [address] ??[address] DIAGNOSTIC IMAGING Name: EDILBERTO HAWLEYDONITA ??Ordering Phys: BRAYDEN WOLFF Date of : 1955 ?Gender: M ??Accession Number: [id number] EXAM DESCRIPTION: SWALLOWING FUCNTION W CINE VIDEO [...] Procedure Note Dayanna Durbin MD - 05/14/[address] [address] DIAGNOSTIC IMAGING Name: EDILBERTO HAWLEYDONITA Ordering Phys: BRAYDEN WOLFF Date of : 1955 Gender: M Accession Number: [id number] EXAM DESCRIPTION: SWALLOWING FUCNTION W CINE VIDEO [...] Durbin M.D. us Brayden Wolff MD IMG FLUOROSCOPY ORDERABLE S Final Result documented in this encounter Visit Diagnoses Diagnosis Sinusitis, unspecified chronicity, unspecified location Gastroesophageal reflux disease, unspecified whether esophagitis present Dysphagia, unspecified type Recurrent sinusitis Unspecified sinusitis (chronic) documented in this encounter Additional Health Concerns Assessment Noted Time A fall risk assessment has been complete d for the patient 04/16/2021 8:08 AM CDT documented as of this encounter Care Teams Bookkeeping Assistant Relationship Specialty Start Date End Date Patient, None Per PCP - General 05/01/21 05/28/21 Lacey Perdue MD [address] [phone] Referring Physician Infectious Diseases 06/28/18 documented as of this encounter
--- OUTSIDE RECORDS SUMMARY | 2024-11-23 00:26 | XMS_ITS | Encounter Summary ---
Author Organization [facility] Address [address] [place] [address] Care Team Providers Care Glass Etcher Name Role Phone Lacey Perdue MD Unavailable [phone] Leonard Jasso APRN Primary Care Provide r Reason for Visit * Reason Comments Shoulder Pain Patient complains of right shoulder. Encounter Details Date Type Department Care Team (Late st Contact Info) Description 01/15/2021 11:30 AM COMMUNICATIONS TECH Office Visit [address] [id number] Leonard Jasso, ANGIE [address] [place] [phone] Cervical strain, acute, initial encounter (Primary Dx); Right shoulder strain, initial encounter Social History Tobacco Use Types Packs/Day [...] COVID-19? No / Unsure 01/15/2021 11:18 AM COMMUNICATIONS TECH documented as of this encounter Last Filed Vital Signs Vital Sign Reading Time Taken Comments Blood Pressure 116/74 01/15/2021 11:26 AM COMMUNICATIONS TECH Pulse 89 01/15/2021 11:26 AM COMMUNICATIONS TECH Temperature 36.2 ??C (97.1 ??F) 01/15/2021 11:[address] Respiratory Rate - - Oxygen Saturation 95% 01/15/2021 11:26 AM COMMUNICATIONS TECH Inhaled Oxygen Concentration - - Weight 92.1 kg (203 lb) 01/15/2021 11:26 AM COMMUNICATIONS TECH Height 180.3 cm (5' 11 ) 01/15/2021 11:26 AM COMMUNICATIONS TECH Body Mass Index 28.31 01/15/2021 11:26 AM COMMUNICATIONS TECH documented in this encounter Functional Status * Are you deaf or do you have serious difficulty hearing? Answer Date of Assessment Author No 10/25/2017 2:00 PM Deonna Padilla, ARMATURE CONNECTOR * Are you blind or do you have serious difficulty seeing, even when wearing glasses? Answer Date of Assessment Author No 10/25/2017 2:00 PM Deonna Padilla, ARMATURE CONNECTOR * Do you have serious difficulty walking or climbing stairs? (5 years old or older) Answer Date of Assessment Author No 10/25/2017 2:00 PM Deonna Padilla, ARMATURE CONNECTOR * Do you have difficulty dressing or bathing? (5 years old or older) Answer Date of Assessment Author No 10/25/2017 2:00 PM Deonna Padilla S, ARMATURE CONNECTOR * Because of a physical, mental, or emotional condition, do you have difficulty doing errands alone such as visiting a doctor's office or shopping? (15 years old or older) Answer Date of Assessment Author No 10/25/2017 2:00 PM COMMUNICATIONS TECH Deonna Galvan, ARMATURE CONNECTOR documented as of this encounter Mental Status * Because of a physical, mental, or emotional condition, do you have serious difficulty concentrating, remembering, or making decisions? (5 years old or older) Answer Entry Date Author No 10/25/2017 2:00 PM Deonna Padilla, ARMATURE CONNECTOR documented in this encounter Patient Instructions * Patient Instructions* Leonard Jsaso APNP - 01/15/2021 11:30 AM COMMUNICATIONS TECH Rest and go through range of motion as discussed with your shoulder and neck. Warm moist heat to neck and right shoulder. Follow up in office if not better in two weeks. Will probably order xrays if pain continues. Continue current oral narcotics, anti-inflammatories, and muscle relaxer as prescribed. UNICATIONS TECH documented in this encounter Progress Notes * Leonard Jasso APNP - 01/15/2021 11:30 AM CST Chief Complaint Patient presents with ??? Shoulder Pain Patient complains of right shoulder. [address] [address] Dept: [phone] Dept Loc: [phone] Loc Date: 01/15/2021 Name: Edilberto Hawley : 1955 PCP: TIFFANI Galeano Subjective: Patient ID: Edilberto Hawley is a 65 y.o. male. History provided by: Patient Shoulder Injury The pain is present in the neck and right shoulder. This is a new problem. Episode onset: Two weeksago. There has been a history of trauma (On ladder and began to fall grabbing ladder jerking RUE. ). The problem occurs constantly. The problem has been unchanged. The quality of the pain is described as aching. The pain is severe. Pertinent negatives include no fever, inability to bear weight, itching, joint locking, joint swelling, limited range of motion, numbness, stiffness or tingling. The symptoms are aggravated by activity. He has tried oral narcotics, rest and NSAIDS for the symptoms. The treatment provided no relief. Neck Pain This is a new problem. Episode onset: Two weeks ago. The problem occurs constantly. The problem hasbeen unchanged. The pain is associated with a fall. The pain is present in the right side. The quality of the pain is described as aching. The pain is severe. The symptoms are aggravated by twisting and position. The pain is worse during the night. Pertinent negatives include no chest pain, fever, headaches, leg pain, numbness, photophobia, syncope, tingling or weakness. He has tried NSAIDs, oralnarcotics and muscle relaxants for the symptoms. The [...] Musculoskeletal: Positive for neck pain. Negative for myalgias and stiffness. Right shoulder pain. Skin: Negative for itching. Allergic/Immunologic: Negative for environmental allergies and food allergies. Neurological: Negative for tingling, weakness, numbness and headaches. Objective: Blood pressure 116/74, pulse 89, temperature 36.2 ??C (97.1 ??F), height 1.803 m (5' 11 ), weight 92.1 kg (203 lb), SpO2 95 %., BMI Body mass index is 28.31 kg/m??. Physical Exam Vitals signs and nursing note reviewed. Constitutional: General: He is not in acute distress. Appearance: Normal appearance. He is well-developed. He is not ill-appearing, toxic-appearing or diaphoretic. HENT: Head: Normocephalic and atraumatic. Right Ear: Hearing normal. Left Ear: Hearing normal. Mouth/Throat: Tonsils: No tonsillar exudate. Neck: Musculoskeletal: Normal range of motion and neck supple. No neck rigidity or muscular tenderness. Cardiovascular: Rate and Rhythm: Normal rate and regular rhythm. Heart sounds: Normal heart sounds. Pulmonary: Effort: Pulmonary effort is normal. No respiratory distress. Breath sounds: Normal breath sounds. No wheezing. Musculoskeletal: Right shoulder: He exhibits tenderness (anterior deltoid. ) and pain. He exhibits normal range of motion, no bony tenderness, no swelling, no crepitus, no deformity, no spasm and normal strength. Cervical back: He exhibits pain. He exhibits normal range of motion, no tenderness, no bony tenderness and no spasm. Lymphadenopathy: Cervical: No cervical adenopathy. Skin: General: Skin is warm and dry. Neurological: Mental Status: He is alert and oriented to person, place, and time. Assessment/Plan: Problem List Items Addressed This Visit None Visit Diagnoses Cervical strain, acute, initial encounter - Primary Relevant Medications ketorolac (TORADOL) injection (Completed) Right shoulder strain, initial encounter Rest and go through range of motion as discussed with your shoulder and neck. Warm moist heat to neck and right shoulder. Follow up in office if not better in two weeks. Will probably order xrays if pain continues. Continue current oral narcotics, anti-inflammatories, and muscle relaxer as prescribed. Next Visit: Follow up if symptoms worsen or fail to improve. Encounter of: 01/15/2021 Signed: TIFFANI Galeano 01/20/2021 8:58 AM UNICATIONS TECH documented in this encounter Plan of Treatment Not on file documented as of this encounter Goals Goal Patient Goal Type Associated Problems Recent Progress Patient-Stated? Author Blood Pressure < 140/90 Blood Pressure 134/86(2022 2:25 PM CDT) No Leonard Jasso APRN documented as of this encounter Visit Diagnoses Diagnosis Cervical strain, acute, initial encounter- Primary Right shoulder strain, initial encounter documented in this encounter Administered Medications Inactive Administered Medications - up to 3 most recent administrations Medication Order MAR Action Action Date Dose Rate Site ketorolac (TORADOL) injection 60 mg, Intramuscular, ONCE, On Wed01/15/21 at 1330, For 1 dose, If given IV, push over a minimum of 15 secondsIndications:Cervi margy strain, acute, initial encounter Given 01/15/2021 12:51 PM COMMUNICATIONS TECH 60 mg Right Ventrogluteal documented in this encounter Care Teams Glass Etcher Relationship Specialty Start Date End Date Leonard Jasso APRN [address] [facility] [address] [place] [address] PCP - General Family Medicine 08/15/19 04/30/21 Lacey Perdue MD Jose Armando3 [address] [facility] [address] [place] [phone] Referring Physician Infectious Diseases 06/28/18 documented as of this encounter
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
--- OUTSIDE RECORDS SUMMARY | 2024-11-23 00:27 | XMS_ITS | Encounter Summary ---
Author Organization [employer] Address [address] [place] [address] Care Team Providers Care Control Clerk Auditing Name Role Phone Lacey Perdue MD Unavailable [phone] David Concepcion APRN Primary Care Provide r Reason for Referral * Referral (Routine) - Closed Specialty Diagnoses / Procedures Referred By Celine almaguer Referred To Contact General Surgery Diagnoses Gastroesophageal reflux disease without esophagitis Esophageal dysphagia David Concepcion, ROAD MIXER OPERATOR [address] [place] [address] Phone: tel: fax: Referral ID Status Reason Start Date Expiration Date V isits Requested Visits Authorized [id number] Closed Specialty Services Required 11/13/2020 11/13/2021 1 1 S NOVELTY MAKER Reason for Visit * Reason Comments Follow-up pt states his cellul itis of right axilla is healed Referral pt would like a refe rral to ENT Dr Ivana Johnston [place] - pt c/o chronic sinus issues & GERD Encounter Details Date Type Department Care Team (Late st Contact Info) Description 11/13/2020 9:30 AM GLASS NOVELTY MAKER Office Visit [facility] [address] [place] [address] David Concepcion, ROAD MIXER OPERATOR [address] [place] [address] Gastroesophageal reflux disease without esophagitis (Primary Dx); Esophageal dysphagia; Acute non-recurrent maxillary sinusitis; Perennial allergic rhinitis; Chronic neck pain Social History Tobacco Use Types Packs/Day [...] have Coronavirus / COVID-19? No / Unsure 11/13/2020 9:31 AM GLASS NOVELTY MAKER documented as of this encounter Last Filed Vital Signs Vital Sign Reading Time Taken Comments Blood Pressure 122/82 11/13/2020 9:33 AM GLASS NOVELTY MAKER Pulse 88 11/13/2020 9:33 AM GLASS NOVELTY MAKER Temperature 36 ??C (96.8 ??F) 11/13/2020 9:33 AM GLASS NOVELTY MAKER Respiratory Rate 18 11/13/2020 9:33 AM GLASS NOVELTY MAKER Oxygen Saturation 96% 11/13/2020 9:33 AM GLASS NOVELTY MAKER Inhaled Oxygen Concentration - - Weight 93.9 kg (207 lb) 11/13/2020 9:33 AM GLASS NOVELTY MAKER Height 180.3 cm (5' 11 ) 11/13/2020 9:33 AM GLASS NOVELTY MAKER Body Mass Index 28.87 11/13/2020 9:33 AM GLASS NOVELTY MAKER documented in this encounter Functional Status * [...] of Assessment Author No 10/25/2017 2:00 PM GLASS NOVELTY MAKER Nessa Galvan, LEAD BURNER SUPERVISOR * Because of a physical, mental, or emotional condition, do you have difficulty doing errands alone such as visiting a doctor's office or shopping? (15 years old or older) Answer Date of Assessment Author No 10/25/2017 2:00 PM GLASS NOVELTY MAKER Deonna Galvan ARNP documented as of this encounter Mental Status * Because of a physical, mental, or emotional condition, do you have serious difficulty concentrating, remembering, or making decisions? (5 years old or older) Answer Entry Date Author No 10/25/2017 2:00 PM GLASS NOVELTY MAKER Deonna Galvan, LEAD BURNER SUPERVISOR documented in this encounter Patient Instructions * Patient Instructions* David Concepcion APNP - 11/13/2020 9:30 AM GLASS NOVELTY MAKER We will call you with xray results and plan when available. Take antibiotic exactly as prescribed and finish it completely. Take medication exactly as written. Tylenol or ibuprofen as needed for fever and pain. Follow up ifnot better in a week. Tylenol or Ibuprofen as needed for pain or fever. Use appropriate dosing as directed on bottle. Increase fluids. BRAT diet as discussed. Bananas, Rice, Applesauce, Corning. If the Patient does not feellike eating much for a couple of days as long as they stay well hydrated they will make up those meals in the future. Flat 7-Up or Sprite helps if their appetite is decreased due to sugar content. Avoid spicey food or foods high in acid. Avoid caffeine if possible because caffeine increases stomach acid. Avoid tight clothing. Weight loss can help acid reflux also. Take medication daily as prescribed. Over the counter Maximum Strength Antacid Liquid as needed for breakthrough acid reflux symptoms. Follow up if condition is not resolved with treatment. S NOVELTY MAKER S NOVELTY MAKER documented in this encounter Progress Notes * David Concepcion APNP - 11/13/2020 9:30 AM CST Chief Complaint Patient presents with ??? Follow-up pt states his cellulitis of right axilla is healed ??? Referral pt would like a referral to ENT Dr Ivana Johnston [place] - pt c/o chronic sinus issues & GERD [address] [address] Dept: [phone] Dept Loc: [phone] Loc Date: 11/13/2020 Name: Edilberto Durand : 1955 PCP: TIFFANI Galeano Subjective: Patient ID: Edilberto Durand is a 65 y.o. male. History provided by: Patient Gastroesophageal Reflux He complains of dysphagia and heartburn. He reports no abdominal pain, no belching, no chest pain, no choking, no coughing, no early satiety, no globus sensation, no hoarse voice, no nausea, no sore throat, no water brash or no wheezing. This is a chronic problem. The current episode started more than 1 year ago. The problem occurs frequently. The problem has been gradually worsening. The heartburn duration is more than one hour. The heartburn is located in the substernum. The heartburn is of moderate intensity. The heartburn does not wake him from sleep. The heartburn does not limit his activity. The heartburn doesn't change with position. The symptoms are aggravated by certain foods. Pertinent negatives include no anemia, fatigue, melena or weight loss. There are no known risk factors. He has tried a PPI for the symptoms. The treatment provided no relief. Past procedures include an EGD (Years ago per pt. ). Past invasive treatments do not include reflux surgery. Patient's medications, allergies, past medical, surgical, social and family histories were reviewedand updated as appropriate. Review of Systems Constitutional: Negative for activity change, appetite change, chills, diaphoresis, fatigue, fever and weight loss. HENT: Positive for postnasal drip, rhinorrhea, sinus pain and trouble swallowing. Negative for congestion, ear pain, hoarse voice, sinus pressure and sore throat. Eyes: Negative for discharge and itching. Respiratory: Negative for cough, choking, shortness of breath and wheezing. Cardiovascular: Negative for chest pain and palpitations. Gastrointestinal: Positive for dysphagia and heartburn. Negative for abdominal distention, abdominal pain, blood in stool, constipation, diarrhea, melena, nausea and vomiting. Endocrine: Negative for cold intolerance and heat intolerance. Genitourinary: Negative for difficulty urinating. Skin: Negative for rash. Allergic/Immunologic: Negative for environmental allergies and food allergies. Neurological: Negative for dizziness, seizures and syncope. Psychiatric/Behavioral: Negative for agitation and behavioral problems. Objective: Blood pressure 122/82, pulse 88, temperature 36 ??C (96.8 ??F), resp. rate 18, height 1.803 m (5' 11 ), weight 93.9 kg (207 lb), SpO2 96 %., BMI Body mass index is 28.87 kg/m??. Physical Exam Vitals signs and nursing note reviewed. Constitutional: General: He is not in acute distress. Appearance: Normal appearance. He is well-developed. He is not ill-appearing, toxic-appearing or diaphoretic. HENT: Head: Normocephalic and atraumatic. Right Ear: Hearing and tympanic membrane normal. Left Ear: Hearing and tympanic membrane normal. Nose: Mucosal edema, congestion and rhinorrhea present. Right Sinus: No maxillary sinus tenderness. Left Sinus: No maxillary sinus tenderness. Mouth/Throat: Mouth: Mucous membranes are moist. Pharynx: Oropharynx is clear. No oropharyngeal exudate or posterior oropharyngeal erythema. Tonsils: No tonsillar exudate. Comments: Purulent post nasal gtt. Eyes: Conjunctiva/sclera: Conjunctivae normal. Pupils: Pupils are equal, round, and reactive to light. Neck: Musculoskeletal: Normal range of motion and neck supple. Cardiovascular: Rate and Rhythm: Normal rate and regular rhythm. Heart sounds: Normal heart sounds. Pulmonary: Effort: Pulmonary effort is normal. No respiratory distress. Breath sounds: Normal breath sounds. No wheezing. Abdominal: General: There is no distension. Palpations: Abdomen is soft. Tenderness: There is no abdominal tenderness. Musculoskeletal: Cervical back: He exhibits decreased range of motion, tenderness (RIght paraspinal muscles. ) and pain. He exhibits no bony tenderness, no swelling and no spasm. Lymphadenopathy: Cervical: No cervical adenopathy. Skin: General: Skin is warm and dry. Comments: Cellulitis resolved. Neurological: Mental Status: He is alert and oriented to person, place, and time. Comments: Fur Mixer equal and strong bilat upper extremities. DTR's 2/4 bilat upper tricep and antecubital. Denies radiating pain down arms or complaints of weakness and paresthesia. Psychiatric: Mood and Affect: Mood normal. Behavior: Behavior normal. Assessment/Plan: Problem List Items Addressed This Visit None Visit Diagnoses Gastroesophageal reflux disease without esophagitis - Primary Relevant Medications omeprazole 20 MG tablet Other Relevant Orders Amb Ref to General Surgery Esophageal dysphagia Relevant Orders Amb Ref to General Surgery Acute non-recurrent maxillary sinusitis Relevant Medications cefUROXime (CEFTIN) 500 MG tablet predniSONE (DELTASONE) 5 MG tablet cetirizine (ZYRTEC) 10 MG tablet Perennial allergic rhinitis Chronic neck pain Relevant Medications predniSONE (DELTASONE) 5 MG tablet Other Relevant Orders XR Cervical Spine 3 Views or Less Take antibiotic exactly as prescribed and finish it completely. Take medication exactly as written. Tylenol or ibuprofen as needed for fever and pain. Follow up ifnot better in a week. Tylenol or Ibuprofen as needed for pain or fever. Use appropriate dosing as directed on bottle. Increase fluids. BRAT diet as discussed. Bananas, Rice, Applesauce, Corning. If the Patient does not feellike eating much for a couple of days as long as they stay well hydrated they will make up those meals in the future. Flat 7-Up or Sprite helps if their appetite is decreased due to sugar content. Avoid spicey food or foods high in acid. Avoid caffeine if possible because caffeine increases stomach acid. Avoid tight clothing. Weight loss can help acid reflux also. Take medication daily as prescribed. Over the counter Maximum Strength Antacid Liquid as needed for breakthrough acid reflux symptoms. Follow up if condition is not resolved with treatment. Next Visit: Follow up in about 2 weeks (around 11/27/2020). Encounter of: 11/13/2020 Signed: TIFFANI Galeano 11/15/2020 5:20 PM S NOVELTY MAKER documented in this encounter Plan of Treatment Scheduled Referrals Name Type Priority Associated Diagnoses Orde r Schedule Amb Ref to General Surgery Outpatient Referral Routine Gastroesophageal reflux disease without esophagitis Esophageal dysphagia Ordered: 11/13/2020 documented as of this encounter Goals Goal Patient Goal Type Associated Problems Recent Progress Patient-Stated? Author Blood Pressure < 140/90 Blood Pressure 134/86(2022 2:25 PM CDT) No David Concepcion, ANGIE documented as of this encounter Results * XR Cervical Spine 3 Views or Less (01/27/2021 4:49 PM CDT) Anatomical Region Laterality Modality C-spine, T-spine, Neck Computed Radiography 01/27/2021 4:41 PM CDT Impressions 01/27/2021 5:55 PM CDT Degenerative disc space narrowing throughout the cervical spine without fracture or malalignment. THIS IS AN ELECTRONICALLY VERIFIED FINAL REPORT 01/27/2021 5:54 PM - Electronically signed by Dayanna Durbin M.D. Narrative 01/27/2021 5:[address] PM [address]T [address] [place] [address] DIAGNOSTIC IMAGING Name: KIZZY EDILBERTO DELONG ??Ordering Phys: DAVID CONCEPCION Date of : 1955 ?Gender: M ??Accession Number: [id number] EXAM DESCRIPTION: XR CERVICAL SPINE 3 VIEWS [...] Procedure Note Dayanna Durbin MD - 01/27/[address] [place] [address] DIAGNOSTIC IMAGING Name: EDILBERTO DURAND Ordering Phys: DAVID CONCEPCION Date of : 1955 Gender: M Accession Number: [id number] EXAM DESCRIPTION: XR CERVICAL SPINE 3 VIEWS [...] documented in this encounter Visit Diagnoses Diagnosis Gastroesophageal reflux disease without esophagitis- Primary Esophageal reflux Esophageal dysphagia Dysphagia, pharyngoesophageal phase Acute non-recurrent maxillary sinusitis Perennial allergic rhinitis Allergic rhinitis, cause unspecified Chronic neck pain Cervicalgia Chronic neck pain Cervicalgia documented in this encounter Care Teams Control Clerk Auditing Relationship Specialty Start Date End Date David Concepcion APRN [address] [facility] [address] [place] [address] PCP - General Family Medicine 08/15/19 04/30/21 Lacey Perdue MD [address] [phone] Referring Physician Infectious Diseases 06/28/18 documented as of this encounter
--- OUTSIDE RECORDS SUMMARY | 2024-11-23 00:27 | XMS_ITS | Encounter Summary ---
Author Organization [employer] Address [address] [place] [address] Care Team Providers Care Escrow Manager Name Role Phone Lacey Perdue MD Unavailable [phone] Leonard Jasso APRN Primary Care Provide r Encounter Details Date Type Department Care Team (Late st Contact Info) Description 09/16/2020 Orders Only [address] [place] [address] Amanda Tan, FURNACE COMBUSTION ANALYST [address] [place] [address] Social History Tobacco Use Types Packs/Day Years [...] have Coronavirus / COVID-19? No / Unsure 09/13/2020 12:37 PM CDT documented as of this encounter Functional Status * Are you deaf or do you have serious difficulty hearing? Answer Date of Assessment Author No 10/25/2017 2:00 PM JOHN Galvan Am y S, LAMP SHADES SUPERVISOR * Are you blind or do you have serious difficulty seeing, even when wearing glasses? Answer Date of Assessment Author No 10/25/2017 2:00 PM REGIONAL EDUCATION COORDINATOR Cole Am y S, LAMP SHADES SUPERVISOR * Do you have serious difficulty walking or climbing stairs? (5 years old or older) Answer Date of Assessment Author No 10/25/2017 2:00 PM REGIONAL EDUCATION COORDINATOR Cole Am y S, LAMP SHADES SUPERVISOR * Do you have difficulty dressing or bathing? (5 years old or older) Answer Date of Assessment Author No 10/25/2017 2:00 PM REGIONAL EDUCATION COORDINATOR Cole Am y S, LAMP SHADES SUPERVISOR * Because of a physical, mental, or emotional condition, do you have difficulty doing errands alone such as visiting a doctor's office or shopping? (15 years old or older) Answer Date of Assessment Author No 10/25/2017 2:00 PM REGIONAL EDUCATION COORDINATOR Cole Am y S, LAMP SHADES SUPERVISOR documented as of this encounter Mental Status * Because of a physical, mental, or emotional condition, do you have serious difficulty concentrating, remembering, or making decisions? (5 years old or older) Answer Entry Date Author No 10/25/2017 2:00 PM JOHN Galvan Am y S, LAMP SHADES SUPERVISOR documented in this encounter Plan of Treatment Not on file documented as of this encounter Goals Goal Patient Goal Type Associated Problems Recent Progress Patient-Stated? Author Blood Pressure < 140/90 Blood Pressure 134/86(2022 2:25 PM CDT) No Leonard Jasso APRN documented as of this encounter Visit Diagnoses Not on filedocumented in this encounter Care Teams Escrow Manager Relationship Specialty Start Date End Date Leonard Jasso APRN [address] [facility] [address] [place] [address] PCP - General Family Medicine 08/15/19 04/30/21 Lacey Perdue MD [address] [phone] Referring Physician Infectious Diseases 06/28/18 documented as of this encounter
--- OUTSIDE RECORDS SUMMARY | 2024-11-23 00:27 | XMS_ITS | Encounter Summary ---
Author Organization [employer] Address [address] [place] [address] Care Team Providers Care Unishear Operator Name Role Phone Lacey Perdue MD Unavailable [phone] Leonard Jasso APRN Primary Care Provide r Reason for Visit * Reason Comments Recurrent Skin Infections right axillae. Encounter Details Date Type Department Care Team (Late st Contact Info) Description 09/17/2020 3:00 PM HAT BRIM AND CROWN LAMINATING OPERATOR Office Visit [address] [phone] Leonard Jasso APRN [address] [place] [phone] Abscess of right axilla (Primary Dx) Social History Tobacco Use Types [...] have Coronavirus / COVID-19? No / Unsure 09/19/2020 11:12 AM HAT BRIM AND CROWN LAMINATING OPERATOR documented as of this encounter Last Filed Vital Signs Vital Sign Reading Time Taken Comments Blood Pressure 142/76 09/17/2020 2:58 PM HAT BRIM AND CROWN LAMINATING OPERATOR Pulse 83 09/17/2020 2:58 PM HAT BRIM AND CROWN LAMINATING OPERATOR Temperature 36.9 ??C (98.4 ??F) 09/17/2020 2:58 PM CS T Respiratory Rate - - Oxygen Saturation 96% 09/17/2020 2:58 PM HAT BRIM AND CROWN LAMINATING OPERATOR Inhaled Oxygen Concentration - - Weight 88.9 kg (196 lb) 09/17/2020 2:58 PM HAT BRIM AND CROWN LAMINATING OPERATOR Height 180.3 cm (5' 11 ) 09/17/2020 2:58 PM HAT BRIM AND CROWN LAMINATING OPERATOR Body Mass Index 27.34 09/17/2020 2:58 PM HAT BRIM AND CROWN LAMINATING OPERATOR documented in this encounter Functional Status * Are you deaf or do you have serious difficulty hearing? Answer Date of Assessment Author No 10/25/2017 2:00 PM HAT BRIM AND CROWN LAMINATING OPERATOR Deonna Galvan, STAFFING ACCOUNT MANAGER * Are you blind or do you have serious difficulty seeing, even when wearing glasses? Answer Date of Assessment Author No 10/25/2017 2:00 PM Deonna Padilla, STAFFING ACCOUNT MANAGER * Do you have serious difficulty walking or climbing stairs? (5 years old or older) Answer Date of Assessment Author No 10/25/2017 2:00 PM HAT BRIM AND CROWN LAMINATING OPERATOR Deonna Galvan, STAFFING ACCOUNT MANAGER * Do you have difficulty dressing or bathing? (5 years old or older) Answer Date of Assessment Author No 10/25/2017 2:00 PM HAT BRIM AND CROWN LAMINATING OPERATOR Deonna Galvan, STAFFING ACCOUNT MANAGER * Because of a physical, mental, or emotional condition, do you have difficulty doing errands alone such as visiting a doctor's office or shopping? (15 years old or older) Answer Date of Assessment Author No 10/25/2017 2:00 PM Deonna Padilla STAFFING ACCOUNT MANAGER documented as of this encounter Mental Status * Because of a physical, mental, or emotional condition, do you have serious difficulty concentrating, remembering, or making decisions? (5 years old or older) Answer Entry Date Author No 10/25/2017 2:00 PM Deonna Padilla STAFFING ACCOUNT MANAGER documented in this encounter Patient Instructions * Patient Instructions* Leonard Jasso APNP - 09/17/2020 3:00 PM HAT BRIM AND CROWN LAMINATING OPERATOR Please keep your appt with Dr. Loyd, General Surgeon, on of this week. He will assess right axillary skin abscess. Take bactrim as ordered. Go to ER if your condition worsens significantly over the next day or so until you can see Dr. Loyd. BRIM AND CROWN LAMINATING OPERATOR documented in this encounter Progress Notes * Leonard Jasso APNP - 09/17/2020 3:00 PM CST Chief Complaint Patient presents with ??? Recurrent Skin Infections right axillae. [address] [address] Dept: [phone] Dept Loc: [phone] Loc Date: 09/17/2020 Name: Edilberto Hawley : 1955 PCP: TIFFANI Galeano Subjective: Patient ID: Edilberto Hawley is a 64 y.o. male. History provided by: Patient Abscess This is a new problem. Episode onset: 3 days ago. The problem occurs daily. The problem has been unchanged. Pertinent negatives include no abdominal pain, chest pain, chills, congestion, coughing, diaphoresis, fatigue, fever, nausea, neck pain, numbness, rash, sore throat, vertigo, visual change, vomiting or weakness. Exacerbated by: Moving right arm. Treatments tried: Rocephin IM and Bactrim. The treatment provided no relief. Patient's medications, allergies, past medical, surgical, social and family histories were reviewedand updated as appropriate. Review of Systems Constitutional: Negative for activity change, appetite change, chills, diaphoresis, fatigue and fever. HENT: Negative for congestion, ear pain, rhinorrhea, sinus pressure, sinus pain and sore throat. Eyes: Negative for discharge and itching. Respiratory: Negative for cough, shortness of breath and wheezing. Cardiovascular: Negative for chest pain and palpitations. Gastrointestinal: Negative for abdominal distention, abdominal pain, blood in stool, constipation, diarrhea, nausea and vomiting. Endocrine: Negative for cold intolerance and heat intolerance. Genitourinary: Negative for difficulty urinating. Musculoskeletal: Negative for neck pain. Skin: Negative for rash. Skin abscess right axillae. Allergic/Immunologic: Negative for environmental allergies and food allergies. Neurological: Negative for dizziness, vertigo, seizures, syncope, weakness and numbness. Psychiatric/Behavioral: Negative for agitation and behavioral problems. Objective: Blood pressure 142/76, pulse 83, temperature 36.9 ??C (98.4 ??F), height 1.803 m (5' 11 ), weight 88.9 kg (196 lb), SpO2 96 %., BMI Body mass index is 27.34 kg/m??. Physical Exam Vitals signs and nursing note reviewed. Constitutional: General: He is not in acute distress. Appearance: Normal appearance. He is not ill-appearing or diaphoretic. HENT: Head: Normocephalic and atraumatic. Eyes: Conjunctiva/sclera: Conjunctivae normal. Pupils: Pupils are equal, round, and reactive to light. Neck: Musculoskeletal: Normal range of motion and neck supple. No muscular tenderness. Cardiovascular: Rate and Rhythm: Normal rate and regular rhythm. Heart sounds: Normal heart sounds. Pulmonary: Effort: Pulmonary effort is normal. Breath sounds: Normal breath sounds. Lymphadenopathy: Cervical: No cervical adenopathy. Skin: Comments: Skin abscess right axillae 3cm wide 8.5cm long. Deep abscess. No drainage or erythema noted upon exam. Sore during evaluation. Pt picked up bactrim script today. Neurological: Mental Status: He is alert and oriented to person, place, and time. Assessment/Plan: Problem List Items Addressed This Visit None Visit Diagnoses Abscess of right axilla - Primary Please keep your appt with Dr. Loyd, General Surgeon, on of this week. He will assess right axillary skin abscess. Take bactrim as ordered. Go to ER if your condition worsens significantly over the next day or so until you can see Dr. Loyd. Next Visit: Follow up if symptoms worsen or fail to improve. Encounter of: 09/17/2020 Signed: TIFFANI Galeano 09/21/2020 9:36 AM BRIM AND CROWN LAMINATING OPERATOR documented in this encounter Plan of Treatment Not on file documented as of this encounter Goals Goal Patient Goal Type Associated Problems Recent Progress Patient-Stated? Author Blood Pressure < 140/90 Blood Pressure 134/86(2022 2:25 PM CDT) No Leonard Jasso APRN documented as of this encounter Visit Diagnoses Diagnosis Abscess of right axilla- Primary Cellulitis and abscess of upper arm and forearm documented in this encounter Care Teams Unishear Operator Relationship Specialty Start Date End Date Leonard Jasso APRN [address] [facility] [address] [place] [address] PCP - General Family Medicine 08/15/19 04/30/21 Lacey Perdue MD [address] [phone] Referring Physician Infectious Diseases 06/28/18 documented as of this encounter
--- OUTSIDE RECORDS SUMMARY | 2024-11-23 00:27 | XMS_ITS | Encounter Summary ---
Author Organization [employer] Address [address] [place] [address] Care Team Providers Care Rn Navigator Name Role Phone Lacey Perdue MD Unavailable [phone] Leonard Jasso APRN Primary Care Provide r Reason for Visit * Reason Comments Abscess Encounter Details Date Type Department Care Team (Latest Contact Info) Description 10/17/2020 8:00 AM COMB WINDER Office Visit [facility] [address] [place] [address] Siddhartha Loyd MD [address] [place] [address] [address] [place] [address] Calculus of gallbladder without cholecystitis without obstruction (Primary Dx); Abscess of right axilla Social History Tobacco Use Types Packs/Day Years [...] have Coronavirus / COVID-19? No / Unsure 10/17/2020 7:50 AM COMB WINDER documented as of this encounter Last Filed Vital Signs Vital Sign Reading Time Taken Comments Blood Pressure 138/78 10/17/2020 8:15 AM COMB WINDER Pulse 69 10/17/2020 8:15 AM COMB WINDER Temperature 36.6 ??C (97.8 ??F) 10/17/2020 8:15 AM CS T Respiratory Rate 16 10/17/2020 8:15 AM COMB WINDER Oxygen Saturation 97% 10/17/2020 8:15 AM COMB WINDER Inhaled Oxygen Concentration - - Weight 93.9 kg (207 lb) 10/17/2020 8:15 AM COMB WINDER Height 180.3 cm (5' 11 ) 10/17/2020 8:15 AM COMB WINDER Body Mass Index 28.87 10/17/2020 8:15 AM COMB WINDER documented in this encounter Functional Status * Are you deaf or do you have serious difficulty hearing? Answer Date of Assessment Author No 10/25/2017 2:00 PM Deonna Padilla, MOBILE SERVICE RV TECHNICIAN * Are you blind or do you have serious difficulty seeing, even when wearing glasses? Answer Date of Assessment Author No 10/25/2017 2:00 PM Deonna Padilla, MOBILE SERVICE RV TECHNICIAN * Do you have serious difficulty walking or climbing stairs? (5 years old or older) Answer Date of Assessment Author No 10/25/2017 2:00 PM Deonna Padilla, MOBILE SERVICE RV TECHNICIAN * Do you have difficulty dressing or bathing? (5 years old or older) Answer Date of Assessment Author No 10/25/2017 2:00 PM Deonna Padilla, MOBILE SERVICE RV TECHNICIAN * Because of a physical, mental, or emotional condition, do you have difficulty doing errands alone such as visiting a doctor's office or shopping? (15 years old or older) Answer Date of Assessment Author No 10/25/2017 2:00 PM Deonna Padilla, MOBILE SERVICE RV TECHNICIAN documented as of this encounter Mental Status * Because of a physical, mental, or emotional condition, do you have serious difficulty concentrating, remembering, or making decisions? (5 years old or older) Answer Entry Date Author No 10/25/2017 2:00 PM Deonna Padilla, MOBILE SERVICE RV TECHNICIAN documented in this encounter Progress Notes * Siddhartha Loyd MD - 10/17/2020 8:00 AM CST Surgical Services Office Visit Patient: Edilberto Hawley Patient : 1955 Date: 10/17/20 Chief Complaint: Chief Complaint Patient presents with ??? Abscess HPI: 65 y.o. male presents today for followup. The patient had an abscess in his right axilla that was I&D several weeks ago. He also has known cholelithiasis. His abscess site looks great. Just a small amount of drainage at this point, but almost complete resolution. From a gallbladder standpoint, the patient denies any problems. He relates having some back pain when he does a lot of work. De nies any food intolerances. Denies any nausea or vomiting. The patient is here for further exam andcare. Past Medical History: No Known Allergies Current Outpatient Medications: ??? amitriptyline (ELAVIL) 100 MG tablet, Take 1 tablet by mouth daily., Disp: 30 tablet, Rfl: 5 ??? Ascorbic Acid (VITAMIN C) 500 MG tablet, Take 500 mg by mouth daily., Disp: , Rfl: ??? aspirin 325 MG tablet, Take 325 mg by mouth., Disp: , Rfl: ??? baclofen (LIORESAL) 10 MG tablet, Take 1 tablet by mouth 3 (three) times daily as needed (muscle spasms.)., Disp: 90 tablet, Rfl: 0 ??? diclofenac sodium (VOLTAREN) 50 MG EC tablet, Take 1 tablet by mouth 2 (two) times daily., Disp: 60 tablet, Rfl: 5 ??? Diclofenac Sodium 1 % CREA, Place onto the skin nightly as needed., Disp: , Rfl: ??? DULoxetine (CYMBALTA) 60 MG capsule, Take 1 capsule by mouth daily., Disp: 30 capsule, Rfl: 5 ??? finasteride (PROSCAR) 5 MG tablet, Take 5 mg by mouth daily., Disp: , Rfl: ??? Multiple Vitamins-Minerals (ONE DAILY MULTIVITAMIN ADULT PO), Take by mouth., Disp: , Rfl: ??? NARCAN 4 MG/0.1ML LIQD nasal liquid, USE DIRECTED., Disp: 2 each, Rfl: 1 ??? omeprazole 20 MG tablet, Take 1 tablet by mouth every morning before breakfast., Disp: 30 tablet, Rfl: 2 ??? oxyCODONE-acetaminophen (PERCOCET) 10-325 MG per tablet, TAKE ONE TABLET EVERY SIX HOURS IF NEEDED FOR PAIN, Disp: 120 tablet, Rfl: 0 ??? Probiotic Product (SOLUBLE FIBER/PROBIOTICS PO), Take 1 tablet by mouth daily., Disp: , Rfl: ??? tamsulosin HCl (FLOMAX) 0.4 MG capsule, Take 1 capsule by mouth daily., Disp: 30 capsule, Rfl: 5 ??? vitamin D (CHOLECALCIFEROL) 1000 units tablet, Take 1,000 Units by mouth daily., Disp: , Rfl: ??? zinc sulfate (ZINCATE) 220 (50 Zn) MG capsule, Take 220 mg by mouth daily., Disp: , Rfl: Past Medical History: Diagnosis Date ??? Arthritis ??? Back injury ??? Chronic back pain greater than 3 months duration ??? GERD (gastroesophageal reflux disease) ??? Migraines ??? Osteomyelitis of ankle or foot, acute, right ([facility]) 2018 Stepped on nail ??? Shoulder injury ??? Substance abuse ([facility]) cocaine, crystal meth nothing since 1996 ??? Wrist disorder R frzn wrist, 2 screws Past Surgical History: Procedure Laterality Date ??? Colonoscopy w/ polypectomy 12/07/2018 ??? Elbow surgery Left metal plate from elbow to forearm ??? Fracture surgery Left no sx ??? Incision and drainage foot Right Infection right foot and ankle ??? Joint replacement Left Left hip replacement ??? Rotator cuff repair Left ??? Shoulder surgery Right repair tendon ??? Spine surgery 3 4 5 lumbar, pinched nerves Social History Socioeconomic History ??? Marital status: Spouse name: Javier ??? Number of children: 3 ??? Years of education: Not on file ??? Highest education level: Not on file Occupational History ??? Occupation: Retired Social Needs ??? Financial resource strain: Not on file ??? Food insecurity Worry: Not on file Inability: Not on file ??? Transportation needs Medical: Not on file Non-medical: Not on file Tobacco Use ??? Smoking status: Never Smoker ??? Smokeless tobacco: Never Used Substance and Sexual Activity ??? Alcohol use: No ??? Drug use: Yes Types: Hydrocodone Comment: Arthritis pain ??? Sexual activity: Not on file Lifestyle ??? Physical activity Days per week: Not on file Minutes per session: Not on file ??? Stress: Not on file Relationships ??? Social connections Talks on phone: Not on file Gets together: Not on file Attends rastafari service: Not on file Active member of club or organization: Not on file Attends meetings of clubs or organizations: Not on file Relationship status: Not on file ??? Intimate partner violence Fear of current or ex partner: Not on file Emotionally abused: Not on file Physically abused: Not on file Forced sexual activity: Not on file Other Topics Concern [...] Social History Narrative ??? Not on file Family History Problem Relation Age of Onset ??? Dementia Mother Review of Systems: No change. Exam: Vitals: 10/17/20 0815 BP: 138/78 Pulse: 69 Resp: 16 Temp: 36.6 ??C (97.8 ??F) SpO2: 97% Weight: 93.9 kg (207 lb) Height: 1.803 m (5' 11 ) Body mass index is 28.87 kg/m??. GENERAL: 65-year-old no apparent distress. CHEST: Lungs are clear to auscultation. HEART: Heart is regular in rhythm. ABDOMEN: Abdomen is soft and nontender. No masses/organomegaly. No guarding or rebound. EXTREMITIES: Grossly intact. Exam of the right axilla reveals a healed up I&D site. No tenderness or mass palpated. LAB AND RADIOLOGY: Assessment/Plan: 65-year-old here for follow-up after right axillary abscess drainage. That area looks great. Nothing else to do from a surgical standpoint. The patient also has known cholelithiasis.He is asymptomatic at this point. He relates after doing a lot of work that he does have some back pain. I suspect this is more musculoskeletal and not related to the gallbladder. I do not think he needs any cholecystectomy at this time due to the asymptomatic nature of his cholelithiasis. I will be happy to see him back in the future if he develops any symptoms. He is going to see me back as needed in the future. The primary encounter diagnosis was Calculus of gallbladder without cholecystitis without obstruction. A diagnosis of Abscess of right axilla was also pertinent to this visit. No follow-ups on file. Siddhartha Loyd MD, FACS WINDER documented in this encounter Plan of Treatment Not on file documented as of this encounter Goals Goal Patient Goal Type Associated Problems Recent Progress Patient-Stated? Author Blood Pressure < 140/90 Blood Pressure 134/86(2022 2:25 PM CDT) No Leonard Jasso APRN documented as of this encounter Visit Diagnoses Diagnosis Calculus of gallbladder without cholecystitis without obstruction- Primary Calculus of gallbladder without mention of cholecystitis or obstruction Abscess of right axilla Cellulitis and abscess of upper arm and forearm documented in this encounter Care Teams Rn Navigator Relationship Specialty Start Date End Date Leonard Jasso APRN [facility] [address] [place] [address] PCP - General Family Medicine 08/15/19 04/30/21 Lacey Perdue MD [address] [phone] Referring Physician Infectious Diseases 06/28/18 documented as of this encounter
--- OUTSIDE RECORDS SUMMARY | 2024-11-23 00:27 | XMS_ITS | Encounter Summary ---
Author Organization [employer] Address [address] [place] [address] Care Team Providers Care Counseling Psychologist Name Role Phone Lacey Perdue MD Unavailable [phone] Leonard Jasso APRN Primary Care Provide r Reason for Visit * Reason Onset Date Comments Medication Refill 10/17/2020 Encounter Details Date Type Department Care Team (Late st Contact Info) Description 10/17/2020 Telephone [place] [id number] [facility] [address] [place] [address] Zoey Seaman, LEIGHTON [address] [facility] [address] [place] [address] Medication Refill Social History Tobacco Use Types Packs/Day Years [...] COVID-19? No / Unsure 10/17/2020 7:50 AM SOLAR ENERGY ENGINEER documented as of this encounter Functional Status * Are you deaf or do you have serious difficulty hearing? Answer Date of Assessment Author No 10/25/2017 2:00 PM SOLAR ENERGY ENGINEER Cole, Am y S, TERMINAL SUPERVISOR * Are you blind or do you have serious difficulty seeing, even when wearing glasses? Answer Date of Assessment Author No 10/25/2017 2:00 PM SOLAR ENERGY ENGINEER Galvan, Am y S, TERMINAL SUPERVISOR * Do you have serious difficulty walking or climbing stairs? (5 years old or older) Answer Date of Assessment Author No 10/25/2017 2:00 PM SOLAR ENERGY ENGINEER Galvan, Am y S, TERMINAL SUPERVISOR * Do you have difficulty dressing or bathing? (5 years old or older) Answer Date of Assessment Author No 10/25/2017 2:00 PM SOLAR ENERGY ENGINEER Galvan, Am y S, TERMINAL SUPERVISOR * Because of a physical, mental, or emotional condition, do you have difficulty doing errands alone such as visiting a doctor's office or shopping? (15 years old or older) Answer Date of Assessment Author No 10/25/2017 2:00 PM SOLAR ENERGY ENGINEER Cole, Am y S, TERMINAL SUPERVISOR documented as of this encounter Mental Status * Because of a physical, mental, or emotional condition, do you have serious difficulty concentrating, remembering, or making decisions? (5 years old or older) Answer Entry Date Author No 10/25/2017 2:00 PM SOLAR ENERGY ENGINEER Deonna Galvan y S, TERMINAL SUPERVISOR documented in this encounter Miscellaneous Notes * Telephone Encounter - Zoey Seaman LPN - 10/17/2020 10:01 AM CST Patient seeing Dylan today he will address refill. R ENERGY ENGINEER * Telephone Encounter - Zoey Seaman LPN - 10/17/2020 9:58 AM CST ----- Message from Mckinley Willett sent at 10/02/2020 2:30 PM SOLAR ENERGY ENGINEER ----- Provider: Romero / BETHANIE Mullins: Medication Refill Who Called? Patient Is the patient active on MyChart?: No Patient call back number: (home) Have you spoken with pharmacy regarding this refill? No Medication: Clindamycin 300 mg Do you have any questions about this medication? No Preferred Pharmacy: [facility] Patient states he still has infection and is out of clindamycin. Patient has appt with Dylan 10/17 The patient was informed: This medication will be sent directly to the pharmacy. If there is a problem with the medication refill, the clinic staff will contact you. R ENERGY ENGINEER documented in this encounter Plan of Treatment Not on file documented as of this encounter Goals Goal Patient Goal Type Associated Problems Recent Progress Patient-Stated? Author Blood Pressure < 140/90 Blood Pressure 134/86(2022 2:25 PM CDT) No Leonard Jasso APRN documented as of this encounter Visit Diagnoses Not on filedocumented in this encounter Care Teams Counseling Psychologist Relationship Specialty Start Date End Date Leonard Jasso APRN [address] [facility] [address] [place] [address] PCP - General Family Medicine 08/15/19 04/30/21 Lacey Perdue MD [address] [phone] Referring Physician Infectious Diseases 06/28/18 documented as of this encounter
--- OUTSIDE RECORDS SUMMARY | 2024-11-23 00:27 | XMS_ITS | Encounter Summary ---
Author Organization [employer] Address [address] [place] [address] Care Team Providers Care Data Warehouse Administrator Name Role Phone Lacey Perdue MD Unavailable [phone] Leonard Jasso APRN Primary Care Provide r Encounter Details Date Type Department Care Team (Latest Contact Info) Description 09/17/2020 Travel Social History Tobacco Use Types Packs/Day [...] have Coronavirus / COVID-19? No / Unsure 09/17/2020 2:39 PM OUTREACH TEAM MEMBER documented as of this encounter Functional Status * Are you deaf or do you have serious difficulty hearing? Answer Date of Assessment Author No 10/25/2017 2:00 PM OUTREACH TEAM MEMBER Deonna Galvan ARNP * Are you blind or do you have serious difficulty seeing, even when wearing glasses? Answer Date of Assessment Author No 10/25/2017 2:00 PM OUTREACH TEAM MEMBER Deonna Galvan ARNP * Do you have serious difficulty walking or climbing stairs? (5 years old or older) Answer Date of Assessment Author No 10/25/2017 2:00 PM Deonna Padilla, PRINCIPAL INVESTIGATOR * Do you have difficulty dressing or bathing? (5 years old or older) Answer Date of Assessment Author No 10/25/2017 2:00 PM Deonna Padilla, PRINCIPAL INVESTIGATOR * Because of a physical, mental, or emotional condition, do you have difficulty doing errands alone such as visiting a doctor's office or shopping? (15 years old or older) Answer Date of Assessment Author No 10/25/2017 2:00 PM Deonna Padilla, PRINCIPAL INVESTIGATOR documented as of this encounter Mental Status * Because of a physical, mental, or emotional condition, do you have serious difficulty concentrating, remembering, or making decisions? (5 years old or older) Answer Entry Date Author No 10/25/2017 2:00 PM Deonna Padilla, PRINCIPAL INVESTIGATOR documented in this encounter Plan of Treatment Not on file documented as of this encounter Goals Goal Patient Goal Type Associated Problems Recent Progress Patient-Stated? Author Blood Pressure < 140/90 Blood Pressure 134/86(2022 2:25 PM CDT) No Leonard Jasso APRN documented as of this encounter Visit Diagnoses Not on filedocumented in this encounter Care Teams Data Warehouse Administrator Relationship Specialty Start Date End Date Leonard Jasso APRN [address] [facility] [address] [place] [address] PCP - General Family Medicine 08/15/19 04/30/21 Lacey Perdue MD [address] [phone] Referring Physician Infectious Diseases 06/28/18 documented as of this encounter
--- OUTSIDE RECORDS SUMMARY | 2024-11-23 00:27 | XMS_ITS | Encounter Summary ---
Author Organization [employer] Address [address] [place] [address] Care Team Providers Care Medicare Compliance Auditor Name Role Phone Lacey Perdue MD Unavailable [phone] Leonard Jasso APRN Primary Care Provide r Reason for Visit * Reason Comments Medication Refill Encounter Details Date Type Department Care Team (Late st Contact Info) Description 11/11/[address] [address] Leonard Jasso, ANGIE [address] [place] [address] Social History Tobacco Use Types Packs/Day [...] COVID-19? No / Unsure 10/17/2020 7:50 AM COLLECTIONS ASSOCIATE documented as of this encounter Functional Status * Are you deaf or do you have serious difficulty hearing? Answer Date of Assessment Author No 10/25/2017 2:00 PM COLLECTIONS ASSOCIATE Galvan, Am y S, BASKET HAND WEAVER * Are you blind or do you have serious difficulty seeing, even when wearing glasses? Answer Date of Assessment Author No 10/25/2017 2:00 PM COLLECTIONS ASSOCIATE Cole Am y S, BASKET HAND WEAVER * Do you have serious difficulty walking or climbing stairs? (5 years old or older) Answer Date of Assessment Author No 10/25/2017 2:00 PM COLLECTIONS ASSOCIATE Galvan, Am y S, BASKET HAND WEAVER * Do you have difficulty dressing or bathing? (5 years old or older) Answer Date of Assessment Author No 10/25/2017 2:00 PM COLLECTIONS ASSOCIATE Galvan, Am y S, BASKET HAND WEAVER * Because of a physical, mental, or emotional condition, do you have difficulty doing errands alone such as visiting a doctor's office or shopping? (15 years old or older) Answer Date of Assessment Author No 10/25/2017 2:00 PM COLLECTIONS ASSOCIATE Galvan, Am y S, BASKET HAND WEAVER documented as of this encounter Mental Status * Because of a physical, mental, or emotional condition, do you have serious difficulty concentrating, remembering, or making decisions? (5 years old or older) Answer Entry Date Author No 10/25/2017 2:00 PM COLLECTIONS ASSOCIATE Cole Am y S, BASKET HAND WEAVER documented in this encounter Plan of Treatment Not on file documented as of this encounter Goals Goal Patient Goal Type Associated Problems Recent Progress Patient-Stated? Author Blood Pressure < 140/90 Blood Pressure 134/86(2022 2:25 PM CDT) No Leonard Jasso APRN documented as of this encounter Visit Diagnoses Not on filedocumented in this encounter Care Teams Medicare Compliance Auditor Relationship Specialty Start Date End Date Leonard Jasso APRN [address] [facility] [address] [place] [address] PCP - General Family Medicine 08/15/19 04/30/21 Lacey Perdue MD [address] [phone] Referring Physician Infectious Diseases 06/28/18 documented as of this encounter
--- OUTSIDE RECORDS SUMMARY | 2024-11-23 00:27 | XMS_ITS | Encounter Summary ---
Author Organization [employer] Address [address] [place] [address] Care Team Providers Care Self Pay Representative Name Role Phone Lacey Perdue MD Unavailable [phone] Leonard Jasso APRN Primary Care Provide r Encounter Details Date Type Department Care Team (Latest Contact Info) Description 09/09/2020 10:50 AM CDT - 09/09/2020 11:59 PM CDT Hospital Encounter [facility] [address] [place] [phone] Calculus of gallbladder without cholecystitis without obstruction; Borderline diabetes Discharge Disposition: Home - Discharge to Home [...] have Coronavirus / COVID-19? No / Unsure 09/09/2020 10:04 AM CDT documented as of this encounter Functional Status * Are you deaf or do you have serious difficulty hearing? Answer Date of Assessment Author No 10/25/2017 2:00 PM SLAG WORKER Deonna Galvan ARNP * Are you [...] 01/15/2020 2 omeprazole 20 MG tablet Take 1 tablet by mouth every morning before breakfast. 30 tablet 2 05/16/2020 0 oxyCODONE-acetamin ophen (Percocet) 10-325 MG per tablet Take 1 tablet by mouth every 6 (six) hours as needed for Pain. 120 tablet 08/16/2020 0 tamsulosin HCl (FLOMAX) 0.4 MG capsule Take 1 capsule by mouth daily. 30 capsule 5 11/04/2018 1 documented as of this encounter Plan of Treatment Not on file documented as of this encounter Goals Goal Patient Goal Type Associated Problems Recent Progress Patient-Stated? Author Blood Pressure < 140/90 Blood Pressure 134/86(2022 2:25 PM CDT) No Leonard Jsaso, GLUE SPRAYER documented as of this encounter Procedures Procedure Name Priority Date/Time Associated Diagnosis Comments HEMOGLOBIN A1C Routine 09/09/2020 10:50 AM CDT Borderline diabetes COMPREHENSIVE METABOLIC PANEL Routine 09/09/2020 10:50 AM CDT Calculus of gallbladder without cholecystitis without obstruction Borderline diabetes documented in this encounter Results * (ABNORMAL) Hemoglobin A1c (09/09/2020 10:50 AM CDT) Hemoglobin A1C 6.1(H) 3.8 - 5.6 % 09/09/2020 5:58 PM CDT [facility] Whole blood specimen (specimen) 09/09/2020 10:50 AM CDT 09/09/2020 5:38 PM CDT Leonard Jasso GLUE SPRAYER LAB BLOOD ORDERABLES Final Result [facility] [address] [facility] [address] [place] [address] * (ABNORMAL) Comprehensive metabolic panel (09/09/2020 10:50 AM T) Sodium 137 136 - 145 mmol/L 09/09/2020 6:38 PM [facility] Potassium 4.6 3.5 - 5.1 mmol/L 09/09/2020 6:38 PM [facility] Chloride 103 98 - 107 mmol/L 09/09/2020 6:38 PM [facility] CO2 26 21 - 32 mmol/L 09/09/2020 6:38 PM [facility] Glucose 119(H) 74 - 106 mg/dL 09/09/2020 6:38 PM [facility] BUN 16 7.0 - 18.0 mg/dL 09/09/2020 6:38 PM [facility] Creatinine 1.00 0.70 - 1.30 mg/dL 09/09/2020 6:38 PM [facility] Calcium 9.1 8.5 - 10.1 mg/dL 09/09/2020 6:38 PM [facility] Total Protein 7.6 6.4 - 8.2 g/dL 09/09/2020 6:38 PM [facility] Albumin 3.9 3.4 - 5.0 g/dL 09/09/2020 6:38 PM [facility] Bilirubin Total 0.4 0.2 - 1.0 mg/dL 09/09/2020 6:38 PM [facility] Alkaline Phosphatase 80 56 - 119 U/L 09/09/2020 6:38 PM [facility] AST 54(H) 15 - 37 U/L 09/09/2020 6:38 PM [facility] ALT 90(H) 16 - 63 U/L 09/09/2020 6:38 PM [facility] Anion Gap 8 8 - 16 mmol/L 09/09/2020 6:38 PM [facility] BUN/Creatinine Ratio 16.0 09/09/2020 6:38 PM [facility] Osmolality Calculated 276(L) 285 - 295 mosm/kg 09/09/2020 6:38 PM [facility] Globulin 3.7(H) 2.3 - 3.4 g/dL 09/09/2020 6:38 PM [facility] A/G Ratio 1.1(L) 1.2 - 2.4 09/09/2020 6:38 PM [facility] Creatinine Based eGFR 78 mL/min/[1. 73_m2] 09/09/2020 6:38 PM [facility] Comment:GFR 60-90 Mild decre ased GFR. EGFR /Argent[place] >90 mL/min/[1. 73_m2] 09/09/2020 6:38 PM [facility] Comment:GFR >90 Normal or el evated GFR. Serum specimen (specimen) 09/09/2020 10:50 AM CDT 09/09/2020 5:[address] [facility] us Leonard Jasso APRN LAB BLOOD ORDERABLES Final Result [facility] [address] [facility] [address] [place] [address] documented in this encounter Visit Diagnoses Diagnosis Calculus of gallbladder without cholecystitis without obstruction Calculus of gallbladder without mention of cholecystitis or obstruction Borderline diabetes Other abnormal glucose documented in this encounter Care Teams Self Pay Representative Relationship Specialty Start Date End Date Leonard Jasso APRN [address] [facility] [address] [place] [address] PCP - General Family Medicine 08/15/19 04/30/21 Lacey Perdue MD [address] [phone] Referring Physician Infectious Diseases 06/28/18 documented as of this encounter
--- OUTSIDE RECORDS SUMMARY | 2024-11-23 00:27 | XMS_ITS | Encounter Summary ---
Author Organization [employer] Address [address] [place] [address] Care Team Providers Care Water Meter Reader Name Role Phone aLcey Perdue MD Unavailable [phone] Leonard Jasso APRN Primary Care Provide r Encounter Details Date Type Department Care Team (Latest Contact Info) Description 11/13/2020 Travel Social History Tobacco Use Types Packs/Day [...] COVID-19? No / Unsure 11/13/2020 9:31 AM DATA SECURITY CONSULTANT documented as of this encounter Functional Status [...] Author No 10/25/2017 2:00 PM Deonna Padilla, PROFESSOR OF INDUSTRIAL TECHNOLOGY * Do you have difficulty dressing or bathing? (5 years old or older) Answer Date of Assessment Author No 10/25/2017 2:00 PM Deonna Padilla, PROFESSOR OF INDUSTRIAL TECHNOLOGY * Because of a physical, mental, or emotional condition, do you have difficulty doing errands alone such as visiting a doctor's office or shopping? (15 years old or older) Answer Date of Assessment Author No 10/25/2017 2:00 PM Deonna Padilla, PROFESSOR OF INDUSTRIAL TECHNOLOGY documented as of this encounter Mental Status * Because of a physical, mental, or emotional condition, do you have serious difficulty concentrating, remembering, or making decisions? (5 years old or older) Answer Entry Date Author No 10/25/2017 2:00 PM Deonna Padilla, PROFESSOR OF INDUSTRIAL TECHNOLOGY documented in this encounter Plan of Treatment Not on file documented as of this encounter Goals Goal Patient Goal Type Associated Problems Recent Progress Patient-Stated? Author Blood Pressure < 140/90 Blood Pressure 134/86(2022 2:25 PM CDT) No Leonard Jasso APRN documented as of this encounter Visit Diagnoses Not on filedocumented in this encounter Care Teams Water Meter Reader Relationship Specialty Start Date End Date Leonard Jasso APRN 14[address] [facility] [address] [place] [address] PCP - General Family Medicine 08/15/19 04/30/21 Lacey Perdue MD [address] [phone] Referring Physician Infectious Diseases 06/28/18 documented as of this encounter
--- OUTSIDE RECORDS SUMMARY | 2024-11-23 00:27 | XMS_ITS | Encounter Summary ---
Author Organization [employer] Address [address] [place] [address] Care Team Providers Care Sustainability Coordinator Name Role Phone Lacey Perdue MD Unavailable [phone] Leonard Jasso APRN Primary Care Provide r Reason for Visit * Reason Onset Date Comments Telephone Call 09/16/2020 Encounter Details Date Type Department Care Team (Late st Contact Info) Description 09/16/[address] [place] [address] [place] [address] Telephone Call Social History Tobacco Use Types Packs/Day Years [...] of Assessment Author No 10/25/2017 2:00 PM PYROTECHNIC MIXER Galvan, Am y S, UNIVERSITY ADMINISTRATIVE ASSISTANT * Are you blind or do you have serious difficulty seeing, even when wearing glasses? Answer Date of Assessment Author No 10/25/2017 2:00 PM PYROTECHNIC MIXER Galvan, Am y S, UNIVERSITY ADMINISTRATIVE ASSISTANT * Do you have serious difficulty walking or climbing stairs? (5 years old or older) Answer Date of Assessment Author No 10/25/2017 2:00 PM PYROTECHNIC MIXER Galvan, Am y S, UNIVERSITY ADMINISTRATIVE ASSISTANT * Do you have difficulty dressing or bathing? (5 years old or older) Answer Date of Assessment Author No 10/25/2017 2:00 PM PYROTECHNIC MIXER Galvan, Am y S, UNIVERSITY ADMINISTRATIVE ASSISTANT * Because of a physical, mental, or emotional condition, do you have difficulty doing errands alone such as visiting a doctor's office or shopping? (15 years old or older) Answer Date of Assessment Author No 10/25/2017 2:00 PM PYROTECHNIC MIXER Galvan, Nessa my S, UNIVERSITY ADMINISTRATIVE ASSISTANT documented as of this encounter Mental Status * Because of a physical, mental, or emotional condition, do you have serious difficulty concentrating, remembering, or making decisions? (5 years old or older) Answer Entry Date Author No 10/25/2017 2:00 PM PYROTECHNIC MIXER Galvan, Am y S, UNIVERSITY ADMINISTRATIVE ASSISTANT documented in this encounter Miscellaneous Notes * Telephone Encounter - Magda Knight, [facility] - 09/16/2020 11:26 AM PYROTECHNIC MIXER Pt called stating that at his visit on 09/13/2020 Amanda has drawn a grand traverse inside his armpit and to call with updates if the swelling got outside of the grand traverse. He states that it did but not too much and wanted to know if this is going to be an issue like his foot is that will require surgery. I let pt know that I would have to discuss the new information with Amanda and then contact him. Spoke to Amanda and she sent in a new Rx for him to replace the Bactrim he'd been using. He states that the center part of the right axilla abscess is still about the same as when he was in the office on 09/13/2020. He is to f/u with his PCP tomorrow and [facility] Dr. Loyd on 09/19/2020 and they can discuss his foot surgery. PVU with no further questions. TECHNIC MIXER documented in this encounter Plan of Treatment Not on file documented as of this encounter Goals Goal Patient Goal Type Associated Problems Recent Progress Patient-Stated? Author Blood Pressure < 140/90 Blood Pressure 134/86(2022 2:25 PM CDT) No Leonard Jasso APRN documented as of this encounter Visit Diagnoses Not on filedocumented in this encounter Care Teams Sustainability Coordinator Relationship Specialty Start Date End Date Leonard Jasso APRN 14[address] [facility] [address] [place] [address] PCP - General Family Medicine 08/15/19 04/30/21 Lacey Perdue MD [address] [phone] Referring Physician Infectious Diseases 06/28/18 documented as of this encounter
--- OUTSIDE RECORDS SUMMARY | 2024-11-23 00:27 | XMS_ITS | Encounter Summary ---
Author Organization [employer] Address [address] [place] [address] Care Team Providers Care Store Operations Associate Name Role Phone Lacey Perdue MD Unavailable [phone] Leonard aJsso APRN Primary Care Provide r Reason for Visit * Reason Comments Medication Refill Encounter Details Date Type Department Care Team (Late st Contact Info) Description 10/14/[address] [address] Leonard Jasso, ANGIE [address] [place] [id number] Social History Tobacco Use Types Packs/Day [...] have Coronavirus / COVID-19? No / Unsure 09/24/2020 2:49 PM CARBURETOR REPAIRER documented as of this encounter Functional Status * Are you deaf or do you have serious difficulty hearing? Answer Date of Assessment Author No 10/25/2017 2:00 PM CARBURETOR REPAIRER Galvan, Am y S, COLOR MAKER * Are you blind or do you have serious difficulty seeing, even when wearing glasses? Answer Date of Assessment Author No 10/25/2017 2:00 PM CARBURETOR REPAIRER Cole Am y S, COLOR MAKER * Do you have serious difficulty walking or climbing stairs? (5 years old or older) Answer Date of Assessment Author No 10/25/2017 2:00 PM CARBURETOR REPAIRER Galvan, Am y S, COLOR MAKER * Do you have difficulty dressing or bathing? (5 years old or older) Answer Date of Assessment Author No 10/25/2017 2:00 PM CARBURETOR REPAIRER Galvan, Am y S, COLOR MAKER * Because of a physical, mental, or emotional condition, do you have difficulty doing errands alone such as visiting a doctor's office or shopping? (15 years old or older) Answer Date of Assessment Author No 10/25/2017 2:00 PM CARBURETOR REPAIRER Galvan, Am y S, COLOR MAKER documented as of this encounter Mental Status * Because of a physical, mental, or emotional condition, do you have serious difficulty concentrating, remembering, or making decisions? (5 years old or older) Answer Entry Date Author No 10/25/2017 2:00 PM CARBURETOR REPAIRER Cole Am y S, COLOR MAKER documented in this encounter Plan of Treatment Not on file documented as of this encounter Goals Goal Patient Goal Type Associated Problems Recent Progress Patient-Stated? Author Blood Pressure < 140/90 Blood Pressure 134/86(2022 2:25 PM CDT) No Leonard Jasso APRN documented as of this encounter Visit Diagnoses Not on filedocumented in this encounter Care Teams Store Operations Associate Relationship Specialty Start Date End Date Leonard Jasso APRN 1454 [facility] [address] [place] [address] PCP - General Family Medicine 08/15/19 04/30/21 Lacey Perdue MD [address] [phone] Referring Physician Infectious Diseases 06/28/18 documented as of this encounter
--- OUTSIDE RECORDS SUMMARY | 2024-11-23 00:27 | XMS_ITS | Encounter Summary ---
Author Organization [employer] Address [address] [place] [address] Care Team Providers Care Legal Activity Adjudicator Name Role Phone Lacey Perdue MD Unavailable [phone] Leonard Jasso APRN Primary Care Provide r Reason for Visit * Reason Comments Medication Refill Encounter Details Date Type Department Care Team (Late st Contact Info) Description 09/13/[address] [address] Leonard Jasso, ANGIE [address] [place] [address] Social History Tobacco Use Types Packs/Day [...] of Assessment Author No 10/25/2017 2:00 PM CUTTER BANANA ROOM Galvan, Am y S, VENDING SUPERVISOR * Are you blind or do you have serious difficulty seeing, even when wearing glasses? Answer Date of Assessment Author No 10/25/2017 2:00 PM CUTTER BANANA ROOM Galvan, Am y S, VENDING SUPERVISOR * Do you have serious difficulty walking or climbing stairs? (5 years old or older) Answer Date of Assessment Author No 10/25/2017 2:00 PM CUTTER BANANA ROOM Galvan, Am y S, VENDING SUPERVISOR * Do you have difficulty dressing or bathing? (5 years old or older) Answer Date of Assessment Author No 10/25/2017 2:00 PM CUTTER BANANA ROOM Galvan, Am y S, VENDING SUPERVISOR * Because of a physical, mental, or emotional condition, do you have difficulty doing errands alone such as visiting a doctor's office or shopping? (15 years old or older) Answer Date of Assessment Author No 10/25/2017 2:00 PM CUTTER BANANA ROOM Galvan, Am y S, VENDING SUPERVISOR documented as of this encounter Mental Status * Because of a physical, mental, or emotional condition, do you have serious difficulty concentrating, remembering, or making decisions? (5 years old or older) Answer Entry Date Author No 10/25/2017 2:00 PM CUTTER BANANA ROOM Galvan, Am y S, VENDING SUPERVISOR documented in this encounter Plan of Treatment Not on file documented as of this encounter Goals Goal Patient Goal Type Associated Problems Recent Progress Patient-Stated? Author Blood Pressure < 140/90 Blood Pressure 134/86(2022 2:25 PM CDT) No Leonard Jasso APRN documented as of this encounter Visit Diagnoses Not on filedocumented in this encounter Care Teams Legal Activity Adjudicator Relationship Specialty Start Date End Date Leonard Jasso APRN 1454 [facility] [address] [place] [address] PCP - General Family Medicine 08/15/19 04/30/21 Lacey Perdue MD [address] [phone] Referring Physician Infectious Diseases 06/28/18 documented as of this encounter
--- OUTSIDE RECORDS SUMMARY | 2024-11-23 00:27 | XMS_ITS | Encounter Summary ---
Author Organization [employer] Address [address] [place] [address] Care Team Providers Care Dialysis Nurse Name Role Phone Lacey Perdue MD Unavailable [phone] Leonard Jasso APRN Primary Care Provide r Reason for Visit * Reason Onset Date Comments Medication Refill 12/09/2020 Medication Refill 12/12/2020 Encounter Details Date Type Department Care Team (Late st Contact Info) Description 12/09/[address] [address] [place], [place] 1454 [facility] [address] [place] [address] Social History Tobacco Use Types Packs/Day [...] COVID-19? No / Unsure 12/11/2020 9:15 AM SENIOR C SOFTWARE DEVELOPER documented as of this encounter Functional Status * Are you deaf or do you have serious difficulty hearing? Answer Date of Assessment Author No 10/25/2017 2:00 PM SENIOR C SOFTWARE DEVELOPER Galvan, Am y S, ALLERGY SPECIALIST * Are you blind or do you have serious difficulty seeing, even when wearing glasses? Answer Date of Assessment Author No 10/25/2017 2:00 PM SENIOR C SOFTWARE DEVELOPER Galvan, Am y S, ALLERGY SPECIALIST * Do you have serious difficulty walking or climbing stairs? (5 years old or older) Answer Date of Assessment Author No 10/25/2017 2:00 PM SENIOR C SOFTWARE DEVELOPER Galvan, Am y S, ALLERGY SPECIALIST * Do you have difficulty dressing or bathing? (5 years old or older) Answer Date of Assessment Author No 10/25/2017 2:00 PM SENIOR C SOFTWARE DEVELOPER Galvan, Am y S, ALLERGY SPECIALIST * Because of a physical, mental, or emotional condition, do you have difficulty doing errands alone such as visiting a doctor's office or shopping? (15 years old or older) Answer Date of Assessment Author No 10/25/2017 2:00 PM SENIOR C SOFTWARE DEVELOPER Galvan, Am y S, ALLERGY SPECIALIST documented as of this encounter Mental Status * Because of a physical, mental, or emotional condition, do you have serious difficulty concentrating, remembering, or making decisions? (5 years old or older) Answer Entry Date Author No 10/25/2017 2:00 PM SENIOR C SOFTWARE DEVELOPER Galvan, Am y S, ALLERGY SPECIALIST documented in this encounter Plan of Treatment Not on file documented as of this encounter Goals Goal Patient Goal Type Associated Problems Recent Progress Patient-Stated? Author Blood Pressure < 140/90 Blood Pressure 134/86(2022 2:25 PM CDT) No Leonard Jasso APRN documented as of this encounter Visit Diagnoses Not on filedocumented in this encounter Care Teams Dialysis Nurse Relationship Specialty Start Date End Date Leonard Jasso APRN 1454 [facility] [address] [place] [address] PCP - General Family Medicine 08/15/19 04/30/21 Lacey Perdue MD [address] [phone] Referring Physician Infectious Diseases 06/28/18 documented as of this encounter
--- OUTSIDE RECORDS SUMMARY | 2024-11-23 00:27 | XMS_ITS | Encounter Summary ---
Author Organization [email or web address] Address [address] [place] [address] Care Team Providers Care Superintendent Sales Name Role Phone Lacey Perdue MD Unavailable [phone] Leonard Jasso APRN Primary Care Provide r Encounter Details Date Type Department Care Team (Latest Contact Info) Description 09/13/2020 Travel Social History Tobacco Use Types Packs/Day [...] No 10/25/2017 2:00 PM Deonna Padilla S, FURNITURE REMOVALIST * Do you have difficulty dressing or bathing? (5 years old or older) Answer Date of Assessment Author No 10/25/2017 2:00 PM Deonna Padilla S, FURNITURE REMOVALIST * Because of a physical, mental, or emotional condition, do you have difficulty doing errands alone such as visiting a doctor's office or shopping? (15 years old or older) Answer Date of Assessment Author No 10/25/2017 2:00 PM Deonna Padilla S, FURNITURE REMOVALIST documented as of this encounter Mental Status * Because of a physical, mental, or emotional condition, do you have serious difficulty concentrating, remembering, or making decisions? (5 years old or older) Answer Entry Date Author No 10/25/2017 2:00 PM Deonna Padilla, FURNITURE REMOVALIST documented in this encounter Plan of Treatment Not on file documented as of this encounter Goals Goal Patient Goal Type Associated Problems Recent Progress Patient-Stated? Author Blood Pressure < 140/90 Blood Pressure 134/86(2022 2:25 PM CDT) No Leonard Jasso APRN documented as of this encounter Visit Diagnoses Not on filedocumented in this encounter Care Teams Superintendent Sales Relationship Specialty Start Date End Date Leonard Jasso APRN 1454 [facility] [address] [place] [address] PCP - General Family Medicine 08/15/19 04/30/21 Lacey Perdue MD [address] [phone] Referring Physician Infectious Diseases 06/28/18 documented as of this encounter
--- OUTSIDE RECORDS SUMMARY | 2024-11-23 00:27 | XMS_ITS | Encounter Summary ---
Author Organization [employer] Address [address] [place] [address] Care Team Providers Care Fur Puller Name Role Phone Lacey Perdue MD Unavailable [phone] Leonard Jasso APRN Primary Care Provide r Encounter Details Date Type Department Care Team (Latest Contact Info) Description 10/17/2020 Travel Social History Tobacco Use Types Packs/Day [...] COVID-19? No / Unsure 10/17/2020 7:50 AM GANG SAW OPERATOR documented as of this encounter Functional Status * Are you deaf or do you have serious difficulty hearing? Answer Date of Assessment Author No 10/25/2017 2:00 PM Deonna Padilla ARNP * Are you blind or do you have serious difficulty seeing, even when wearing glasses? Answer Date of Assessment Author No 10/25/2017 2:00 PM GANG SAW OPERATOR Deonna Galvan ARNP * Do you have serious difficulty walking or climbing stairs? (5 years old or older) Answer Date of Assessment Author No 10/25/2017 2:00 PM Deonna Padilla, CONVICT GUARD * Do you have difficulty dressing or bathing? (5 years old or older) Answer Date of Assessment Author No 10/25/2017 2:00 PM Deonna Padilla, CONVICT GUARD * Because of a physical, mental, or emotional condition, do you have difficulty doing errands alone such as visiting a doctor's office or shopping? (15 years old or older) Answer Date of Assessment Author No 10/25/2017 2:00 PM Deonna Padilla, CONVICT GUARD documented as of this encounter Mental Status * Because of a physical, mental, or emotional condition, do you have serious difficulty concentrating, remembering, or making decisions? (5 years old or older) Answer Entry Date Author No 10/25/2017 2:00 PM Deonna Padilla, CONVICT GUARD documented in this encounter Plan of Treatment Not on file documented as of this encounter Goals Goal Patient Goal Type Associated Problems Recent Progress Patient-Stated? Author Blood Pressure < 140/90 Blood Pressure 134/86(2022 2:25 PM CDT) No Leonard Jasso APRN documented as of this encounter Visit Diagnoses Not on filedocumented in this encounter Care Teams Fur Puller Relationship Specialty Start Date End Date Leonard Jasso APRN 1454 [facility] [address] [place] [address] PCP - General Family Medicine 08/15/19 04/30/21 Lacey Perdue MD [address] [phone] Referring Physician Infectious Diseases 06/28/18 documented as of this encounter
--- OUTSIDE RECORDS SUMMARY | 2024-11-23 00:27 | XMS_ITS | Encounter Summary ---
Author Organization [employer] Address [address] [place] [address] Care Team Providers Care Hearing Aid Technician Name Role Phone Lacey Perdue MD Unavailable [phone] Leonard Jasso APRN Primary Care Provide r Encounter Details Date Type Department Care Team (Latest Contact Info) Description 12/05/2020 Travel Social History Tobacco Use Types Packs/Day [...] have Coronavirus / COVID-19? No / Unsure 12/05/2020 10:20 AM FIELD CONTROL INSPECTOR documented as of this encounter Functional Status [...] 2:00 PM JOHN Galvan Am y S, GROUP SALES MANAGER * Do you have difficulty dressing or bathing? (5 years old or older) Answer Date of Assessment Author No 10/25/2017 2:00 PM JOHN Galvan Am y S, GROUP SALES MANAGER * Because of a physical, mental, or emotional condition, do you have difficulty doing errands alone such as visiting a doctor's office or shopping? (15 years old or older) Answer Date of Assessment Author No 10/25/2017 2:00 PM JOHN Galvan Am y S, GROUP SALES MANAGER documented as of this encounter Mental Status * Because of a physical, mental, or emotional condition, do you have serious difficulty concentrating, remembering, or making decisions? (5 years old or older) Answer Entry Date Author No 10/25/2017 2:00 PM JOHN Galvan Am y S, GROUP SALES MANAGER documented in this encounter Plan of Treatment Not on file documented as of this encounter Goals Goal Patient Goal Type Associated Problems Recent Progress Patient-Stated? Author Blood Pressure < 140/90 Blood Pressure 134/86(2022 2:25 PM CDT) No Leonard Jasso APRN documented as of this encounter Visit Diagnoses Not on filedocumented in this encounter Care Teams Hearing Aid Technician Relationship Specialty Start Date End Date Leonard Jasso APRN 1454 [facility] [address] [place] [address] PCP - General Family Medicine 08/15/19 04/30/21 Lacey Perdue MD [address] [facility] [address] [phone] Referring Physician Infectious Diseases 06/28/18 documented as of this encounter
--- OUTSIDE RECORDS SUMMARY | 2024-11-23 00:27 | XMS_ITS | Encounter Summary ---
Author Organization [employer] Address [address] [place] [address] Care Team Providers Care Supervisor Ticket Sales Name Role Phone Lacey Perdue MD Unavailable [phone] Leonard Jasso APRN Primary Care Provide r Reason for Visit * Reason Comments Wound Check right axilla Encounter Details Date Type Department Care Team (Late st Contact Info) Description 09/24/2020 3:00 PM SPORTS MANAGEMENT INTERN Office Visit [address] [phone] Leonard Jasso, ANGIE [address] [place] [address] [phone] Abscess of right axilla (Primary Dx) Social [...] COVID-19? No / Unsure 09/24/2020 2:49 PM SPORTS MANAGEMENT INTERN documented as of this encounter Last Filed Vital Signs Vital Sign Reading Time Taken Comments Blood Pressure 138/92 09/24/2020 2:54 PM SPORTS MANAGEMENT INTERN Pulse - - Temperature 36.4 ??C (97.5 ??F) 09/24/2020 2:54 PM CS T Respiratory Rate - - Oxygen Saturation - - Inhaled Oxygen Concentration - - Weight 89.6 kg (197 lb 9.6 oz) 09/24/2020 2:54 P M SPORTS MANAGEMENT INTERN Height 180.3 cm (5' 11 ) 09/24/2020 2:54 PM SPORTS MANAGEMENT INTERN Body Mass Index 27.56 09/24/2020 2:54 PM SPORTS MANAGEMENT INTERN documented in this encounter Functional Status * Are you deaf or do you have serious difficulty hearing? Answer Date of Assessment Author No 10/25/2017 2:00 PM SPORTS MANAGEMENT INTERN Deonna Galvan ARNP * Are you blind or do you have serious difficulty seeing, even when wearing glasses? Answer Date of Assessment Author No 10/25/2017 2:00 PM Deonna Padilla ARNP * Do you have serious difficulty walking or climbing stairs? (5 years old or older) Answer Date of Assessment Author No 10/25/2017 2:00 PM Deonna Padilla, SPEECH PROFESSOR * Do you have difficulty dressing or [...] * Patient Instructions* Leonard Jasso APNP - 09/24/2020 3:00 PM SPORTS MANAGEMENT INTERN Finish clindamycin exactly as prescribed. Follow up in two days for removal of iodiform gauze. May use right upper extremity as needed as long as there is no discomfort. TS MANAGEMENT INTERN documented in this encounter Progress Notes * Leonard Jasso APNP - 09/24/2020 3:00 PM CST Chief Complaint Patient presents with ??? Wound Check right axilla [address] [address] Dept: [phone] Dept Loc: [phone] Loc Date: 09/24/2020 Name: Edilberto Hawley : 1955 PCP: TIFFANI Galeano Subjective: Patient ID: Edilberto Hawley is a 64 y.o. male. History provided by: Patient Wound Check He was originally treated 10 to 14 days ago. Previous treatment included I&D of abscess and oral antibiotics. The maximum temperature noted was less than 100.4 F. The temperature was taken using a tympanic thermometer. There has been no drainage from the wound. There is no redness present. The swelling has improved. There is no pain present. He has no difficulty moving the affected extremity or digit. Patient's medications, allergies, past medical, surgical, social and family histories were reviewedand updated as appropriate. Review of Systems Constitutional: Negative for activity change, appetite change, chills, diaphoresis and fever. HENT: Negative for congestion, ear [...] intolerance. Genitourinary: Negative for difficulty urinating. Skin: Positive for wound (Right axillae. skin abscess healing 2cm diameter. Scant drainage. I&Dby surgeon five days ago.). Negative for rash. Allergic/Immunologic: Negative for environmental allergies and food allergies. Neurological: Negative for dizziness, seizures and syncope. Psychiatric/Behavioral: Negative for agitation and behavioral problems. Objective: Blood pressure (!) 138/92, temperature 36.4 ??C (97.5 ??F), temperature source Temporal, height 1.803 m (5' 11 ), weight 89.6 kg (197 lb 9.6 oz)., BMI Body mass index is 27.56 kg/m??. Physical Exam Vitals signs and nursing [...] Breath sounds: Normal breath sounds. No wheezing. Lymphadenopathy: Cervical: No cervical adenopathy. Skin: General: Skin is warm and dry. Comments: Right axillae. skin abscess healing 2cm diameter. Scant drainage. I&D by surgeon fivedays ago. Neurological: Mental Status: He is alert and oriented to person, place, and time. Assessment/Plan: Problem List Items Addressed This Visit None Visit Diagnoses Abscess of right axilla - Primary Finish clindamycin exactly as prescribed. Follow up in two days for removal of iodiform gauze. May use right upper extremity as needed as long as there is no discomfort. Next Visit: Follow up in about 2 days (around 09/26/2020). Encounter of: 09/24/2020 Signed: TIFFANI Galeano 09/27/2020 9:06 AM TS MANAGEMENT INTERN documented in this encounter Plan of Treatment [...] forearm documented in this encounter Care Teams Supervisor Ticket Sales Relationship Specialty Start Date End Date Leonard Jasso APRN [address] [facility] [address] [place] [address] PCP - General Family Medicine 08/15/19 04/30/21 Lacey Perdue MD [address] [address] Referring Physician Infectious Diseases 06/28/18 documented as of this encounter
--- OUTSIDE RECORDS SUMMARY | 2024-11-23 00:27 | XMS_ITS | Encounter Summary ---
Author Organization [employer] Address [address] [place] [address] Care Team Providers Care Underwriting Technician Name Role Phone Lacey Perdue MD Unavailable [phone] Leonard Jasso APRN Primary Care Provide r Encounter Details Date Type Department Care Team (Late st Contact Info) Description 12/05/2020 Prep for Surgery [facility] Surgery [address] [facility] [address] [place] [address] Siddhartha Loyd MD [address] [place] [address] Dysphasia (Primary Dx) Social History Tobacco Use Types [...] COVID-19? No / Unsure 12/05/2020 10:20 AM ORAL SURGERY ASSISTANT documented as of this encounter Functional Status * Are you deaf or do you have serious difficulty hearing? Answer Date of Assessment Author No 10/25/2017 2:00 PM ORAL SURGERY ASSISTANT Deonna Galvan y S, TOOL MAKER APPRENTICE * Are you blind or do you have serious difficulty seeing, even when wearing glasses? Answer Date of Assessment Author No 10/25/2017 2:00 PM ORAL SURGERY ASSISTANT Deonna Galvan y S, TOOL MAKER APPRENTICE * Do you have serious difficulty walking or climbing stairs? (5 years old or older) Answer Date of Assessment Author No 10/25/2017 2:00 PM ORAL SURGERY ASSISTANT Deonna Galvan y S, TOOL MAKER APPRENTICE * Do you have difficulty dressing or bathing? (5 years old or older) Answer Date of Assessment Author No 10/25/2017 2:00 PM ORAL SURGERY ASSISTANT Deonna Galvan y S, TOOL MAKER APPRENTICE * Because of a physical, mental, or emotional condition, do you have difficulty doing errands alone such as visiting a doctor's office or shopping? (15 years old or older) Answer Date of Assessment Author No 10/25/2017 2:00 PM ORAL SURGERY ASSISTANT Deonna Galvan y S, TOOL MAKER APPRENTICE documented as of this encounter Mental Status * Because of a physical, mental, or emotional condition, do you have serious difficulty concentrating, remembering, or making decisions? (5 years old or older) Answer Entry Date Author No 10/25/2017 2:00 PM JOHN Galvan Am y S, TOOL MAKER APPRENTICE documented in this encounter Plan of Treatment Not on file documented as of this encounter Goals Goal Patient Goal Type Associated Problems Recent Progress Patient-Stated? Author Blood Pressure < 140/90 Blood Pressure 134/86(2022 2:25 PM CDT) No Leonard Jasso APRN documented as of this encounter Visit Diagnoses Diagnosis Dysphasia- Primary Other speech disturbance documented in this encounter Care Teams Underwriting Technician Relationship Specialty Start Date End Date Leonard Jasso APRN [address] [facility] [address] [place] [address] PCP - General Family Medicine 08/15/19 04/30/21 Lacey Perdue MD [address] [id number] Referring Physician Infectious Diseases 06/28/18 documented as of this encounter
--- OUTSIDE RECORDS SUMMARY | 2024-11-23 00:27 | XMS_ITS | Encounter Summary ---
Author Organization [employer] Address [address] [place] [address] Care Team Providers Care Talent Coordinator Name Role Phone Lacey Perdue MD Unavailable [phone] Leonard Jasso APRN Primary Care Provide r Reason for Visit * Reason Comments Abscess Right axilla Encounter Details Date Type Department Care Team (Late st Contact Info) Description 09/13/2020 1:00 PM CDT Office Visit [address] [place] [address] Amanda Tan, WOOD ROOM HAND [address] [place] [address] Cellulitis of axilla, right (Primary Dx) Social History Tobacco Use Types [...] Sign Reading Time Taken Comments Blood Pressure 124/70 09/13/2020 1:06 PM CDT Pulse 85 09/13/2020 1:06 PM CDT Temperature 37.3 ??C (99.2 ??F) 09/13/2020 1:06 PM CD T Respiratory Rate 18 09/13/2020 1:06 PM CDT Oxygen Saturation 95% 09/13/2020 1:06 PM CDT Inhaled Oxygen Concentration - - Weight 88.8 kg (195 lb 12.8 oz) 09/13/2020 1:06 PM CDT Height 180.3 cm (5' 11 ) 09/13/2020 1:06 PM CDT Body Mass Index 27.31 09/13/2020 1:06 PM CDT documented in this encounter Functional Status * Are you deaf or do you have serious difficulty hearing? Answer Date of Assessment Author No 10/25/2017 2:00 PM Deonna Padilla S, SAP ABAP PROGRAMMER * Are you blind or do you have serious difficulty seeing, even when wearing glasses? Answer Date of Assessment Author No 10/25/2017 2:00 PM INCLUSION INTERNSHIP Deonna Galvan S, SAP ABAP PROGRAMMER * Do you have serious difficulty walking or climbing stairs? (5 years old or older) Answer Date of Assessment Author No 10/25/2017 2:00 PM Deonna Padilla S, SAP ABAP PROGRAMMER * Do you have difficulty dressing or bathing? (5 years old or older) Answer Date of Assessment Author No 10/25/2017 2:00 PM INCLUSION INTERNSHIP Deonna Galvan y S, SAP ABAP PROGRAMMER * Because of a physical, mental, or emotional condition, do you have difficulty doing errands alone such as visiting a doctor's office or shopping? (15 years old or older) Answer Date of Assessment Author No 10/25/2017 2:00 PM INCLUSION INTERNSHIP Deonna Galvan S, SAP ABAP PROGRAMMER documented as of this encounter Mental Status * Because of a physical, mental, or emotional condition, do you have serious difficulty concentrating, remembering, or making decisions? (5 years old or older) Answer Entry Date Author No 10/25/2017 2:00 PM Deonna Padilla S, SAP ABAP PROGRAMMER documented in this encounter Progress Notes * Amanda Mullins, WOOD ROOM HAND - 09/13/2020 1:00 PM CDT Images from the original note were not included. [facility] [address] [facility] [address] Dept: [phone] Dept Loc: [phone] Loc Date: 09/13/20 Name: Edilberto Hawley : 1955 PCP: TIFFANI Galeano Chief Complaint Patient presents with ??? Abscess Right axilla Subjective: Patient ID: Edilberto Hawley is a 64 y.o. male HPI Patient is here for an acute visit today, his PCP is Dylan Jasso NP in [place]. Last night he noticed some increased redness and swelling in the right axilla. It was the size of a soft ball at the that time. This morning is was smaller, but decorating machine tender to the touch. 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 ROS Right axilla cellulitis with Abscess Objective: Blood pressure 124/70, pulse 85, temperature 37.3 ??C (99.2 ??F), resp. rate 18, height 1.803 m (5'11 ), weight 88.8 kg (195 lb 12.8 oz), SpO2 95 %. Physical Exam Cardiovascular: Rate and Rhythm: Normal rate and regular rhythm. Heart sounds: Normal heart sounds. Pulmonary: Effort: Pulmonary effort is normal. Breath sounds: Normal breath sounds and air entry. Skin: Findings: Abscess and erythema present. Assessment/Plan: Problem List Items Addressed This Visit Cellulitis of axilla, right - Primary Relevant Medications cefTRIAXone (ROCEPHIN) injection (Start on 09/13/2020 2:00 PM) Area was marked for patient to monitor. He will follow up with Dylan on Wednesday if not greatly improved. Recommended that he stop squeezing the area. Instruction for medications given and monitoring discussed. Questions have been answered patient verbalizes understanding and agreement with plan. Education has been provided. Next Visit: Follow up in about 3 days (around 09/16/2020), or 3 days with Dylan if no improvement.. Encounter of: 09/13/2020 Signed: Amanda Mullins NP 09/13/2020 1:47 PM Disclaimer: Note: To increase efficiency, your provider prepared this document using voice recognition technology. In that case, if a word or phrase is confusing, or does not make sense, this is likely due to a recognition error within the program which was not discovered during the provider???s review. If you believe an error has occurred, please notify your provider???s office at your earliest convenience, so we can correct any mistakes. documented in this encounter Plan of Treatment Not on file documented as of this encounter Goals Goal Patient Goal Type Associated Problems Recent Progress Patient-Stated? Author Blood Pressure < 140/90 Blood Pressure 134/86(2022 2:25 PM CDT) No Leonard Jasso APRN documented as of this encounter Visit Diagnoses Diagnosis Cellulitis of axilla, right- Primary Cellulitis and abscess of upper arm and forearm documented in this encounter Administered Medications Inactive Administered Medications - up to 3 most recent administrations Medication Order MAR Action Action Date Dose Rate Site cefTRIAXone (ROCEPHIN) injection 1 g, Intramuscular, ONCE, On Wed09/13/20 at 1430, For 1 dose, For IM use: dilute 1 gram vial with 2.1mls of lidocaine 1% (or as directed on the label). Shake gently and roll between hands to help dissolve. Concentration = 500mg/ml. (Some brands of generic ceftriaxone are difficult to dissolve in 1.6mls)Indications:Celluli tis of axilla, right Given 09/13/2020 2:12 PM CDT 1 g Left Upper Outer Quadrant documented in this encounter Care Teams Talent Coordinator Relationship Specialty Start Date End Date Leonard Jasso APRN [address] [facility] [address] [place] [address] PCP - General Family Medicine 08/15/19 04/30/21 Lacey Perdue MD [address] [phone] Referring Physician Infectious Diseases 06/28/18 documented as of this encounter
--- OUTSIDE RECORDS SUMMARY | 2024-11-23 00:27 | XMS_ITS | Encounter Summary ---
Author Organization [employer] Address [address] [place] [address] Care Team Providers Care Supervisor Blueprinting And Photocopy Name Role Phone Lacey Perdue MD Unavailable [phone] Leonard Jasso APRN Primary Care Provide r Reason for Visit * Reason Comments Follow-up Patient is here for a follow up. Encounter Details Date Type Department Care Team (Late st Contact Info) Description 12/11/2020 9:15 AM HAND CULTIVATOR Office Visit [address] [phone] Leonard Jasso APRN [address] [place] [phone] Acute non-recurrent maxillary sinusitis (Primary Dx) Social History Tobacco Use Types [...] COVID-19? No / Unsure 12/11/2020 9:15 AM HAND CULTIVATOR documented as of this encounter Last Filed Vital Signs Vital Sign Reading Time Taken Comments Blood Pressure 120/80 12/11/2020 9:28 AM HAND CULTIVATOR Pulse 76 12/11/2020 9:28 AM HAND CULTIVATOR Temperature 36.3 ??C (97.4 ??F) 12/11/2020 9:28 AM CS T Respiratory Rate - - Oxygen Saturation 97% 12/11/2020 9:28 AM HAND CULTIVATOR Inhaled Oxygen Concentration - - Weight 92.1 kg (203 lb) 12/11/2020 9:28 AM HAND CULTIVATOR Height - - Body Mass Index 28.31 12/05/2020 10:30 AM HAND CULTIVATOR documented in this encounter Functional Status * [...] * Patient Instructions* Leonard Jasso APNP - 12/11/2020 9:15 AM HAND CULTIVATOR Images from the original note were not included. Take antibiotic exactly as prescribed and finish it completely. Take medication exactly as written. Tylenol or ibuprofen as needed for fever and pain. Follow up ifnot better in a week. Sinusitis: Care Instructions Your Care Instructions Sinusitis is an infection of the lining of the sinus cavities in your head. Sinusitis often followsa cold. It causes pain and pressure in your head and face. In most cases, sinusitis gets better on its own in 1 to 2 weeks. But some mild symptoms may last for several weeks. Sometimes antibiotics are needed. Follow-up care is a whalen part of your treatment and safety. Be sure to make and go to all appointments, and call your doctor if you are having problems. It's also a good idea to know your test resultsand keep a list of the medicines you take. How can you care for yourself at home? ?? Take an [id number] pain medicine, such as acetaminophen (Tylenol), ibuprofen (Advil, Motrin), or naproxen (Aleve). Read and follow all instructions on the label. ?? If the doctor prescribed antibiotics, take them as directed. Do not stop taking them just because you feel better. You need to take the full course of antibiotics. ?? Be careful when taking npuf-mrp-[id number] cold or flu medicines and Tylenol at the same time. Manyof these medicines have acetaminophen, which is Tylenol. Read the labels to make sure that you are not taking more than the recommended dose. Too much acetaminophen (Tylenol) can be harmful. ?? Breathe warm, moist air from a steamy shower, a hot bath, or a sink filled with hot water. Avoidcold, dry air. Using a humidifier in your home may help. Follow the directions for cleaning the machine. ?? Use saline (saltwater) nasal washes to help keep your nasal passages open and wash out mucus andbacteria. You can buy saline nose drops at a grocery store or drugstore. Or you can make your own at home by adding 1 teaspoon of salt and 1 teaspoon of baking soda to 2 cups of distilled water. If you make your own, fill a bulb syringe with the solution, insert the tip into your nostril, and squeeze gently. Blow your nose. ?? Put a hot, wet towel or a warm gel pack on your face 3 or 4 times a day for 5 to 10 minutes eachtime. ?? Try a decongestant nasal spray like oxymetazoline (Afrin). Do not use it for more than 3 days lizz row. Using it for more than 3 days can make your congestion worse. When should you call for help? Call your doctor now or seek immediate medical care if: ? You have new or worse swelling or redness in your face or around your eyes. ? You have a new or higher fever. Watch closely for changes in your health, and be sure to contact your doctor if: ? You have new or worse facial pain. ? The mucus from your nose becomes thicker (like pus) or has new blood in it. ? You are not getting better as expected. Where can you learn more? Go to the Search Medical Library option found under the Resources tab in [employer] https://EVOFEM.YumZing/ExecNote. If you do not have access to [employer], you can visit [email or web address] and select [employer] from the menu on the left. Enter I933 in the search box to learn more about Sinusitis: Care Instructions. Not on [employer]? Go to [email or web address]/ExecNote and click the Sign Up Now link to request an activation code. Current as of: February 28, 2020?Content Version: 12.7 ?? [employer]. Care instructions adapted under license by your healthcare professional. This care instruction is for use with your licensed healthcare professional. If you have questions about a medical condition or this instruction, always ask your healthcare professional. [employer] disclaims any warranty or liability for your use of this information. CULTIVATOR documented in this encounter Progress Notes * Leonard Jasso APNP - 12/11/2020 9:15 AM CST Chief Complaint Patient presents with ??? Follow-up Patient is here for a follow up. [facility] [address] [facility] [address] Dept: [phone] Dept Loc: [phone] Loc Date: 12/11/2020 Name: Edilberto Hawley : 1955 PCP: TIFFANI Galeano Subjective: Patient ID: Edilberto Hawley is a 65 y.o. male. Pt here with complaints of bleeding from left side of nose. No current nasal bleeding. No other s/s illness. Scheduled for EGD and Colonoscopy Dec 18. Covid test yesterday negative. History provided by: Patient Sinusitis This is a new problem. The current episode started 1 to 4 weeks ago. The problem has been graduallyworsening since onset. There has been no fever. He is experiencing no pain. Associated symptoms include congestion and sinus pressure. Pertinent negatives include no chills, coughing, diaphoresis, ear pain, headaches, shortness of breath, sneezing or sore throat. (Minor blood when blows nose from left nare.) Past treatments include nothing. The treatment provided no relief. Patient's medications, allergies, past medical, surgical, social and family histories were reviewedand updated as appropriate. Review of Systems Constitutional: Negative for activity change, appetite change, chills, diaphoresis, fatigue, fever and unexpected weight change. HENT: Positive for congestion and sinus pressure. Negative for ear pain, postnasal drip, rhinorrhea, sinus pain, sneezing and sore throat. Eyes: Negative for discharge and itching. Respiratory: Negative for cough, shortness of breath and wheezing. Cardiovascular: Negative for chest pain, palpitations and leg swelling. Gastrointestinal: Negative for abdominal distention, abdominal pain, diarrhea, nausea and vomiting. Endocrine: Negative for cold intolerance and heat intolerance. Genitourinary: Negative for difficulty urinating. Musculoskeletal: Negative for myalgias. Allergic/Immunologic: Negative for environmental allergies and food allergies. Neurological: Negative for headaches. Objective: Blood pressure 120/80, pulse 76, temperature 36.3 ??C (97.4 ??F), weight 92.1 kg (203 lb), SpO2 97 %., BMI Body mass index is 28.31 kg/m??. Physical Exam Vitals signs and nursing note reviewed. Constitutional: General: He is not in acute distress. Appearance: Normal appearance. He is well-developed. He is not ill-appearing, toxic-appearing or diaphoretic. HENT: Head: Normocephalic and atraumatic. Right Ear: Hearing and tympanic membrane normal. Left Ear: Hearing and tympanic membrane normal. Nose: Mucosal edema and congestion (Pus noted left nare. Right nare mucosa swollen, turbinates swollen. ) present. No rhinorrhea. Right Sinus: No maxillary sinus tenderness. Left [...] Items Addressed This Visit None Visit Diagnoses Acute non-recurrent maxillary sinusitis - Primary Relevant Medications cefUROXime (CEFTIN) 500 MG tablet predniSONE (DELTASONE) 5 MG tablet Take antibiotic exactly as prescribed and finish it completely. Take medication exactly as written. Tylenol or ibuprofen as needed for fever and pain. Follow up ifnot better in a week. Next Visit: Follow up if symptoms worsen or fail to improve. Encounter of: 12/11/2020 Signed: TIFFANI Galeano 12/15/2020 5:56 PM CULTIVATOR documented in this encounter Plan of Treatment Not on file documented as of this encounter Goals Goal Patient Goal Type Associated Problems Recent Progress Patient-Stated? Author Blood Pressure < 140/90 Blood Pressure 134/86(2022 2:25 PM CDT) No Leonard Jasso APRN documented as of this encounter Visit Diagnoses Diagnosis Acute non-recurrent maxillary sinusitis- Primary documented in this encounter Care Teams Supervisor Blueprinting And Photocopy Relationship Specialty Start Date End Date Leonard Jasso APRN [address] [facility] [address] [place] [address] PCP - General Family Medicine 08/15/19 04/30/21 Lacey Perdue MD [address] [phone] Referring Physician Infectious Diseases 06/28/18 documented as of this encounter
--- OUTSIDE RECORDS SUMMARY | 2024-11-23 00:27 | XMS_ITS | Encounter Summary ---
Author Organization [employer] Address [address] [place] [address] Care Team Providers Care Senior Engineering Team Leader Name Role Phone Lacey Perdue MD Unavailable [phone] Leonard Jasso APRN Primary Care Provide r Reason for Visit * Reason Comments Abscess Right axilla Abdominal Pain Cholelithiasis Encounter Details Date Type Department Care Team (Late st Contact Info) Description 09/19/2020 11:30 AM CERTIFIED PEER SPECIALIST Office Visit [facility] [address] [place] [address] [place] [address] [place] [address] [address] [place] [address] Abscess of right axilla (Primary Dx) Social [...] COVID-19? No / Unsure 09/19/2020 11:12 AM CERTIFIED PEER SPECIALIST documented as of this encounter Last Filed Vital Signs Vital Sign Reading Time Taken Comments Blood Pressure 121/84 09/19/2020 11:23 AM CERTIFIED PEER SPECIALIST Pulse 94 09/19/2020 11:23 AM CERTIFIED PEER SPECIALIST Temperature 36.4 ??C (97.5 ??F) 09/19/2020 11:[address] Respiratory Rate 16 09/19/2020 11:23 AM CERTIFIED PEER SPECIALIST Oxygen Saturation 97% 09/19/2020 11:23 AM CERTIFIED PEER SPECIALIST Inhaled Oxygen Concentration - - Weight 88 kg (194 lb) 09/19/2020 11:23 AM CERTIFIED PEER SPECIALIST Height 180.3 cm (5' 11 ) 09/19/2020 11:23 AM CERTIFIED PEER SPECIALIST Body Mass Index 27.06 09/19/2020 11:23 AM CERTIFIED PEER SPECIALIST documented in this encounter Functional Status * Are you deaf or do you have serious difficulty hearing? Answer Date of Assessment Author No 10/25/2017 2:00 PM Deonna Padilla, SPRINKLER FITTER APPRENTICE * Are you blind or do you have serious difficulty seeing, even when wearing glasses? Answer Date of Assessment Author No 10/25/2017 2:00 PM Deonna Padilla, SPRINKLER FITTER APPRENTICE * Do you have serious difficulty walking or climbing stairs? (5 years old or older) Answer Date of Assessment Author No 10/25/2017 2:00 PM Deonna Padilla, SPRINKLER FITTER APPRENTICE * Do you have difficulty dressing or bathing? (5 years old or older) Answer Date of Assessment Author No 10/25/2017 2:00 PM Deonna Padilla, SPRINKLER FITTER APPRENTICE * Because of a physical, mental, or emotional condition, do you have difficulty doing errands alone such as visiting a doctor's office or shopping? (15 years old or older) Answer Date of Assessment Author No 10/25/2017 2:00 PM Deonna Padilla SPRINKLER FITTER APPRENTICE documented as of this encounter Mental Status * Because of a physical, mental, or emotional condition, do you have serious difficulty concentrating, remembering, or making decisions? (5 years old or older) Answer Entry Date Author No 10/25/2017 2:00 PM Deonna Padilla SPRINKLER FITTER APPRENTICE documented in this encounter Progress Notes * Siddhartha Loyd MD - 09/19/2020 11:30 AM CST Surgical Services History and Physical Name: Edilberto Hawley Date of : 1955 Age: 64 y.o. Sex: male Patient's Primary Care Physician: TIFFANI Galeano Referred by: No ref. provider found Chief Complaint: Chief Complaint Patient presents with ??? Abscess Right axilla ??? Abdominal Pain Cholelithiasis HPI: 64 y.o. male presents today with a painful swelling/mass in his right axilla. Is been there for several weeks. He had what he described as a infected hair in the region prior to this mass coming up. He had someone to help him plucks the hair . He then developed this mass. It has not drained. He has been on antibiotics without relief. He is here for further exam and [...] file Gets together: Not on file Attends jew service: Not on file Active member of [...] of systems is unremarkable. Physical Examination: Vitals: 09/19/20 1123 BP: 121/84 Pulse: 94 Resp: 16 Temp: 36.4 ??C (97.5 ??F) SpO2: 97% Weight: 88 kg (194 lb) Height: 1.803 m (5' 11 ) Body mass index is 27.06 kg/m??. GENERAL: 64-year-old no apparent distress. CHEST: Lungs clear to auscultation. HEART: Heart is regular and rhythm. ABDOMEN: Abdomen is soft and nontender. No masses/organomegaly. No guarding or rebound. EXTREMITIES: Grossly intact. On focused exam of the right axilla, there is a probable mass. It is tender. Appears to be a probable abscess. There is no current drainage, but there is a point posteriorly of the mass appears to be an area of its getting ready to drain. LAB AND RADIOLOGY: Hospital Outpatient Visit on 09/09/2020 Component Date Value ??? Sodium 09/09/2020 137 ??? Potassium 09/09/2020 4.6 ??? Chloride 09/09/2020 103 ??? CO2 09/09/2020 26 ??? Glucose 09/09/2020 119* ??? BUN 09/09/2020 16 ??? Creatinine 09/09/2020 1.00 ??? Calcium 09/09/2020 9.1 ??? Total Protein 09/09/2020 7.6 ??? Albumin 09/09/2020 3.9 ??? Bilirubin Total 09/09/2020 0.4 ??? Alkaline Phosphatase 09/09/2020 80 ??? AST 09/09/2020 54* ??? ALT 09/09/2020 90* ??? Anion Gap 09/09/2020 8 ??? BUN/Creatinine Ratio 09/09/2020 16.0 ??? Osmolality Calculated 09/09/2020 276* ??? Globulin 09/09/2020 3.7* ??? A/G Ratio 09/09/2020 1.1* ??? EGFR Non-/Mozambican 09/09/2020 78 ? ? EGFR /Mozambican 09/09/2020 >90 ??? Hemoglobin A1C 09/09/2020 6.1* Impression and Plan: 64-year-old with probable abscess in the right axilla. An I&D of this was performed at bedside. Purulent material was removed and was cultured. The cavity extended in about 4to 5 cm. He is going to continue on his current antibiotics. All of his primary follow-up on the culture decide if he wants to do any changes. He is going to keep this area clean and shower to get the area cleaned out. He has some issues with cholelithiasis, but he is can contact us after he gets through this current problem to discuss where to go with that. We will see him back after this area resolves to discuss his gallbladder issues. Patient understands the plan and is agreeable. The encounter diagnosis was Abscess of right axilla. Siddhartha Loyd MD, FACS IFIED PEER SPECIALIST documented in this encounter Procedure Notes * Siddhartha Loyd MD - 09/19/2020 11:30 AM CSTAssociated Order(s): *Incision and Drainage Post-Procedure Diagnose(s): Abscess of right axilla *Incision and Drainage Date/Time: 09/19/2020 11:49 AM Performed by: Siddhartha Loyd MD Authorized by: Siddhartha Loyd MD [place] Protocol: Verbal consent obtained?: Yes Written consent obtained?: No Risks and benefits: Risks, benefits and alternatives were discussed Consent given by: Patient Patient states understanding of procedure being performed: Yes Patient's understanding of procedure matches consent: Yes Procedure consent matches procedure scheduled: Yes Relevant documents present and verified: Yes Test results available and properly labeled: Yes Site marked: Yes Imaging studies available: No Patient identity confirmed: Verbally with patient Time out: Immediately prior to the procedure a time out was called Preparation: Preparation: Patient was prepped and draped in usual sterile fashion Anesthesia: Local anesthesia used?: Yes Anesthesia: Local infiltration Local anesthetic: Lidocaine 1% without epinephrine Anesthetic total (ml): 10 Sedation: Patient sedated: No Indications: Type: Abscess Location: Body Area: Trunk Trunk Location: Right axilla Procedure Type: Complexity: Complex Procedure Details: Scalpel size: 11 Incision type: Single straight Incision depth: Deep Drainage: Purulent Drainage amount: Moderate Wound treatment: Wound left open Packing material: 1/4 in iodoform gauze Post-Procedure Details: Patient tolerance: Patient tolerated the procedure well with no immediate complications Procedure Modifiers: Procedure Comments: Patient aware that he needs to remove the packing when he showers. He can use the shower to irrigate this region. If there is bleeding, I do not direct pressure should take care of it. He will continue with his current antibiotics and will follow up with his primary if changes need to be made. IFIED PEER SPECIALIST documented in this encounter Plan of Treatment Not on file documented as of this encounter Goals Goal Patient Goal Type Associated Problems Recent Progress Patient-Stated? Author Blood Pressure < 140/90 Blood Pressure 134/86(2022 2:25 PM CDT) No Leonard Jasso, ANGIE documented as of this encounter Procedures Procedure Name Priority Date/Time Associated Diagnosis Comments CO INCISION & DRAINAGE ABSCESS COMPLICATED/MULTIPL E Routine 09/19/2020 11:30 AM CERTIFIED PEER SPECIALIST Abscess of right axilla documented in this encounter Results * (ABNORMAL) Wound culture with gram stain (09/19/2020 11:44 AM CERTIFIED PEER SPECIALIST) Specimen Description ABSCESS 09/19/2020 2:07 PM [facility] Special Requests RIGHT AXILLARY ABSCESS 09/19/2020 2:07 PM [facility] Gram Stain OCCASIONAL GRAM POSITIVE COCCI 09/19/2020 6:26 PM [facility] Gram Stain RARE EPITHELIAL CELLS 09/19/2020 6:26 PM [facility] Gram Stain RARE WBCs 09/19/2020 6:26 PM [facility] Culture Results OCCASIONAL METHICILLIN RESISTANT STAPHYLOCOCCUS AUREUS(P) 09/21/2020 9:10 AM [facility] Specimen from abscess (specimen) ABSCESS MORPHOLOGY / Unknown 09/19/2020 11:44 AM CERTIFIED PEER SPECIALIST 09/19/2020 2:14 PM CERTIFIED PEER SPECIALIST Narrative Organism Antibiotic Method Susceptibility Methicillin resistant staphylococcus aureus Augmentin SHMUEL SENSITIVITY >4/2: RESISTANT Methicillin resistant staphylococcus aureus Ampicillin SHMUEL SENSITIVITY >8: RESISTANT Methicillin resistant staphylococcus aureus AMP/SULBAC SHMUEL SENSITIVITY 16/8: RESISTANT Methicillin resistant staphylococcus aureus Ceftriaxone SHMUEL SENSITIVITY 32: RESISTANT Methicillin resistant staphylococcus aureus Ciprofloxacin SHMUEL SENSITIVITY >2: RESISTANT Methicillin resistant staphylococcus aureus Clindamycin SHMUEL SENSITIVITY <=0.5: SUSCEPTIBLE Methicillin resistant staphylococcus aureus Daptomycin SHMUEL SENSITIVITY 1: SUSCEPTIBLE Methicillin resistant staphylococcus aureus Erythromycin SHMUEL SENSITIVITY >4: RESISTANT Methicillin resistant staphylococcus aureus Gentamicin SHMUEL SENSITIVITY <=4: SUSCEPTIBLE Methicillin resistant staphylococcus aureus Levofloxacin SHMUEL SENSITIVITY 4: INTERMEDIATE Methicillin resistant staphylococcus aureus Linezolid SHMUEL SENSITIVITY 4: SUSCEPTIBLE Methicillin resistant staphylococcus aureus Moxifloxacin SHMUEL SENSITIVITY 1: SUSCEPTIBLE Methicillin resistant staphylococcus aureus Oxacillin SHMUEL SENSITIVITY >2: RESISTANT Methicillin resistant staphylococcus aureus Penicillin G SHMUEL SENSITIVITY >8: RESISTANT Methicillin resistant staphylococcus aureus Rifampin SHMUEL SENSITIVITY <=1: SUSCEPTIBLE Methicillin resistant staphylococcus aureus Tetracycline SHMUEL SENSITIVITY <=4: SUSCEPTIBLE Methicillin resistant staphylococcus aureus Trimethoprim + Sulfamethoxazole SHMUEL SENSITIVITY <=0.5/9.5: SUSCEPTIBLE Methicillin resistant staphylococcus aureus Vancomycin SHMUEL SENSITIVITY 2: SUSCEPTIBLE Siddhartha Loyd MD MICROBIOLOGY - GENERAL ORDERABL ES Final Result [facility] [address] [facility] [address] [place] [address] * CO INCISION & DRAINAGE ABSCESS COMPLICATED/MULTIPLE (09/19/2020 11:30 AM CERTIFIED PEER SPECIALIST) Siddhartha Sullivan MD - 09/19/2020 11:30 AM CERTIFIED PEER SPECIALIST Siddhartha Loyd MD ? 09/19/2020 11:52 AM *Incision and Drainage Date/Time: 09/19/2020 11:49 AM Performed by: Siddhartha Loyd MD Authorized by: Siddhartha Loyd MD [place] Protocol: ?Verbal consent obtained?: Yes ?? Written consent obtained?: No ?Risks and benefits: Risks, benefits and alternatives were discussed ?Consent given by: ??Patient ??Patient states understanding of procedure being performed: Yes ?Patient's understanding of procedure matches consent: Yes ?Procedure consent matches procedure scheduled: Yes ?Relevant documents present and verified: Yes ?Test results available and properly labeled: Yes ?Site marked: Yes ?? Imaging studies available: No ?Patient identity confirmed: ??Verbally with patient ??Time out: Immediately prior to the procedure a time out was called ?? Preparation: ??Preparation: Patient was prepped and draped in usual sterile fashion ?? Anesthesia: ?Local anesthesia used?: Yes ?Anesthesia: ??Local infiltration ??Local anesthetic: ??Lidocaine 1% without epinephrine ??Anesthetic total (ml): ??10 Sedation: ?Patient sedated: No ?? Indications: ??Type: ??Abscess Location: ??Body Area: ??Trunk ??Trunk Location: ??Right axilla Procedure Type: ??Complexity: ??Complex Procedure Details: ??Scalpel size: ??11 ??Incision type: ??Single straight ??Incision depth: ??Deep ??Drainage: ??Purulent ??Drainage amount: ??Moderate ??Wound treatment: ??Wound left open ??Packing material: ??11/18 in iodoform gauze Post-Procedure Details: ??Patient tolerance: ??Patient tolerated the procedure well with no immediate complications Procedure Modifiers: Procedure Comments: ?? Patient aware that he needs to remove the packing when he showers. ??He can use the shower to irrigate this region. ??If there is bleeding, I do not direct pressure should take care of it. ??He will continue with his current antibiotics and will follow up with his primary if changes need to be made. us Siddhartha Loyd MD PROCEDURE/MINOR SURGICAL ORDERA BLES Final Result documented in this encounter Visit Diagnoses Diagnosis Abscess of right axilla- Primary Cellulitis and abscess of upper arm and forearm documented in this encounter Care Teams Senior Engineering Team Leader Relationship Specialty Start Date End Date Leonard Jasso, VP COMMUNICATIONS [facility] [address] [place] [address] PCP - General Family Medicine 08/15/19 04/30/21 Lacey Perdue MD [address] [address] Referring Physician Infectious Diseases 06/28/18 documented as of this encounter
--- OUTSIDE RECORDS SUMMARY | 2024-11-23 00:27 | XMS_ITS | Encounter Summary ---
Author Organization [employer] Address [address] [place] [address] Care Team Providers Care Plastics Spreading Machine Operator Name Role Phone Lacey Perdue MD Unavailable [phone] Leonard Jasso APRN Primary Care Provide r Encounter Details Date Type Department Care Team (Latest Contact Info) Description 09/19/2020 11:44 AM DAM WORKER - 09/19/2020 11:59 PM DAM WORKER Hospital Encounter [facility] [address] [place] [address] Abscess of right axilla Discharge Disposition: Home - Discharge to Home [...] COVID-19? No / Unsure 09/19/2020 11:12 AM DAM WORKER documented as of this encounter Functional Status * Are you deaf or do you have serious difficulty hearing? Answer Date of Assessment Author No 10/25/2017 2:00 PM DAM WORKER Deonna Galvan ARNP * Are you [...] capsule Take 220 mg by mouth daily. clindamycin (CLEOCIN) 300 MG capsule Take 2 capsules by mouth 3 (three) times daily for 10 days. 60 capsule 09/16/2020 0 amitriptyline (ELAVIL) 100 MG tablet Take 1 [...] 30 tablet 2 05/16/2020 0 oxyCODONE-acetamin ophen (PERCOCET) 10-325 MG per tablet TAKE ONE TABLET EVERY SIX HOURS IF NEEDED FOR PAIN 120 tablet 09/13/2020 0 tamsulosin HCl (FLOMAX) 0.4 MG capsule [...] Procedure Name Priority Date/Time Associated Diagnosis Comments WOUND CULTURE WITH GRAM STAIN Routine 09/19/2020 11:44 AM DAM WORKER Abscess of right axilla ANAEROBIC CULTURE Routine 09/19/2020 11: 44 AM DAM WORKER documented in this encounter Results * Anaerobic culture (09/19/2020 11:44 AM DAM WORKER) Specimen Description ABSCESS 09/19/2020 2:36 PM [facility] Special Requests RIGHT AXILLARY 09/19/2020 2:36 PM [facility] Culture Results NO GROWTH 7 DAYS 09/26/2020 11:02 AM [facility] Specimen from abscess (specimen) 09/19/2020 11:44 AM DAM WORKER 09/19/2020 2:32 PM DAM WORKER us Siddhartha Loyd MD MICROBIOLOGY - GENERAL ORDERABL ES Final Result [facility] [address] [facility] [address] [place] [address] * (ABNORMAL) Wound culture with gram stain (09/19/2020 11:44 AM DAM WORKER) Specimen Description ABSCESS 09/19/2020 2:07 PM [facility] Special Requests RIGHT AXILLARY ABSCESS 09/19/2020 2:07 PM [facility] Gram Stain OCCASIONAL GRAM POSITIVE COCCI 09/19/2020 6:26 PM [facility] Gram Stain RARE EPITHELIAL CELLS 09/19/2020 6:26 PM [facility] Gram Stain RARE WBCs 09/19/2020 6:26 PM [facility] Culture Results OCCASIONAL METHICILLIN RESISTANT STAPHYLOCOCCUS AUREUS(P) 09/21/2020 9:10 AM [facility] Specimen from abscess (specimen) ABSCESS MORPHOLOGY / Unknown 09/19/2020 11:44 AM DAM WORKER 09/19/2020 2:14 PM DAM WORKER Narrative Organism Antibiotic Method Susceptibility Methicillin resistant [...] staphylococcus aureus Vancomycin SHMUEL SENSITIVITY 2: SUSCEPTIBLE us Siddhartha Loyd MD MICROBIOLOGY - GENERAL ORDERABL ES Final Result [facility] [address] [facility] [address] [place] [address] documented in this encounter Visit Diagnoses Diagnosis Abscess of right axilla Cellulitis and abscess of upper arm and forearm documented in this encounter Care Teams Plastics Spreading Machine Operator Relationship Specialty Start Date End Date Leonard Jasso APRN [address] [facility] [address] [place] [address] PCP - General Family Medicine 08/15/19 04/30/21 Lacey Perdue MD [address] [address] Referring Physician Infectious Diseases 06/28/18 documented as of this encounter
--- OUTSIDE RECORDS SUMMARY | 2024-11-23 00:27 | XMS_ITS | Encounter Summary ---
Author Organization [employer] Address [address] [place] [address] Care Team Providers Care Safety Physician Name Role Phone Lacey Perdue MD Unavailable [phone] Leonard Jasso MOLDED GOODS CONTROLS OPERATOR Primary Care Provide r Reason for Visit * Reason Comments Gastroesophageal Reflux Difficulty Swallowing * Referral (Routine) - Closed Specialty Diagnoses / Procedures Referred By Contjessica almaguer Referred To Contact General Surgery Diagnoses Calculus of gallbladder without cholecystitis without obstruction Leonard Jasso, MOLDED GOODS CONTROLS OPERATOR [address] [place] [address] Phone: tel: fax: Siddhartha Loyd MD [address] [place] [address] [address] [place] [address] Phone: tel: fax: Referral ID Status Reason Start Date Expiration Date V isits Requested Visits Authorized [id number] Closed Specialty Services Required 09/09/2020 09/09/2021 1 1 Encounter Details Date Type Department Care Team (Latest Contact Info) Description 12/05/2020 10:30 AM NURSE PRACTITIONER PER DIEM Initial consult [facility] [address] [place] [address] [address] [place] [address] Siddhartha Loyd MD [address] [place] [address] [address] [place] [address] Dysphasia (Primary Dx); Gastroesophageal reflux disease, unspecified whether esophagitis present; Calculus of gallbladder without cholecystitis without obstruction Social History Tobacco Use Types Packs/Day [...] COVID-19? No / Unsure 12/05/2020 10:20 AM NURSE PRACTITIONER PER DIEM documented as of this encounter Last Filed Vital Signs Vital Sign Reading Time Taken Comments Blood Pressure 128/75 12/05/2020 10:30 AM NURSE PRACTITIONER PER DIEM Pulse 80 12/05/2020 10:30 AM NURSE PRACTITIONER PER DIEM Temperature 36.3 ??C (97.3 ??F) 12/05/2020 10:[address] Respiratory Rate 16 12/05/2020 10:30 AM NURSE PRACTITIONER PER DIEM Oxygen Saturation 96% 12/05/2020 10:30 AM NURSE PRACTITIONER PER DIEM Inhaled Oxygen Concentration - - Weight 92.1 kg (203 lb) 12/05/2020 10:30 AM NURSE PRACTITIONER PER DIEM Height 180.3 cm (5' 11 ) 12/05/2020 10:30 AM NURSE PRACTITIONER PER DIEM Body Mass Index 28.31 12/05/2020 10:30 AM NURSE PRACTITIONER PER DIEM documented in this encounter Functional Status * [...] this encounter Patient Instructions * Patient Instructions* Prerna Vicente RN - 12/05/2020 10:30 AM NURSE PRACTITIONER PER DIEM Images from the original note were not included. Your surgery is scheduled for 12/18/2020 at [facility]. Staff from the hospital will call you to inform you of your arrival time for the day of surgery, they will also contact you to set up COVID testing, if appropriate. If you miss their phone call they can be reached at [phone] If you need to cancel for any reason or have questions or concerns please contact our office at [phone] or [phone]. Upper GI Endoscopy: Before Your Procedure What is an upper GI endoscopy? An upper gastrointestinal (or GI) endoscopy is a test that allows your doctor to look at the insideof your esophagus, stomach, and the first part of your small intestine, called the duodenum. The esophagus is the tube that carries food to your stomach. The doctor uses a thin, lighted tube that bends. It is called an endoscope, or scope. The doctor puts the tip of the scope in your mouth and gently moves it down your throat. The scope is a flexible video camera. The doctor looks at a monitor (like a TV set or a computer screen) as heor she moves the scope. A doctor may do this procedure to look for ulcers, tumors, infection, or bleeding. It also can be used to look for signs of acid backing up into your esophagus. This is calledgastroesophageal reflux disease, or GERD. The doctor can use the scope to take a sample of tissue for study (a biopsy). The doctor also can use the scope to take out growths or stop bleeding. Follow-up care is a whalen part of your treatment and safety. Be sure to make and go to all appointments, and call your doctor if you are having problems. It's also a good idea to know your test resultsand keep a list of the medicines you take. How do you prepare for the procedure? Procedures can be stressful. This information will help you understand what you can expect. And it will help you safely prepare for your procedure. Preparing for the procedure ? Do not eat or drink anything for 6 to 8 hours before the test. An empty stomach helps your doctor see your stomach clearly during the test. It also reduces your chances of vomiting. If you vomit, there is a small risk that the vomit could enter your lungs. (This is called aspiration.) If the test is done in an emergency, a tube may be inserted through your nose or mouth to empty your stomach. ? Do not take sucralfate (Carafate) or antacids on the day of the test. These medicines can make it hard for your doctor to see your upper GI tract. ? If your doctor tells you to, stop taking iron supplements 7 to 14 days before the test. ? Be sure you have someone to take you home. Anesthesia and pain medicine will make it unsafe for you to drive or get home on your own. ? Understand exactly what procedure is planned, along with the risks, benefits, and other options. ?? Tell your doctor ALL the medicines, vitamins, supplements, and herbal remedies you take. Some may increase the risk of problems during your procedure. Your doctor will tell you if you should stop taking any of them before the procedure and how soon to do it. ? If you take aspirin or some other blood thinner, ask your doctor if you should stop taking itbefore your procedure. Make sure that you understand exactly what your doctor wants you to do. These medicines increase the risk of bleeding. ? Make sure your doctor and the hospital have a copy of your advance directive. If you don't have one, you may want to prepare one. It lets others know your health care wishes. It's a good thing to have before any type of surgery or procedure. What happens on the day of the procedure? ?? Follow the instructions exactly about when to stop eating and drinking. If you don't, your procedure may be canceled. If your doctor told you to take your medicines on the day of the procedure, take them with only a sip of water. ? Take a bath or shower before you come in for your procedure. Do not apply lotions, perfumes, deodorants, or nail french. ? Take off all jewelry and piercings. And take out contact lenses, if you wear them. At the hospital or surgery center ?? Bring a picture ID. ? The test may take 15 to 30 minutes. ? The doctor may spray medicine on the back of your throat to numb it. You also will get medicine to prevent pain and to relax you. ? You will lie on your left side. The doctor will put the scope in your mouth and toward the back of your throat. The doctor will tell you when to swallow. This helps the scope move down your throat. You will be able to breathe normally. The doctor will move the scope down your esophagus into your stomach. The doctor also may look at the duodenum. ? If your doctor wants to take a sample of tissue for a biopsy, he or she may use small surgical tools, which are put into the scope, to cut off some tissue. You will not feel a biopsy, if one istaken. The doctor also can use the tools to stop bleeding or to do other treatments, if needed. ? You will stay at the hospital or surgery center for 1 to 2 hours until the medicine you were given wears off. What happens after an upper GI endoscopy? ?? After the test, you may belch and feel bloated for a while. ? You may have a tickling, dry throat or mouth. You may feel a bit hoarse, and you may have a mild sore throat. These symptoms may last several days. Throat lozenges and warm saltwater gargles can help relieve the throat symptoms. ? Don't drive or operate machinery for 12 hours after the test. ? Your doctor will tell you when you can go back to your usual diet and activities. ? Don't drink alcohol for 12 to 24 hours after the test. When should you call your doctor? ?? You have questions or concerns. ? You don't understand how to prepare for your procedure. ? You become ill before the procedure (such as fever, flu, or a cold). ? You need to reschedule or have changed your mind about having the procedure. Where can you learn more? Go to the Search Medical Library option found under the Resources tab in [employer] [email or web address]. If you do not have access to [employer], you can visit [email or web address] and select [facility] from the menu on the left. Enter P790 in the search box to learn more about Upper GI Endoscopy: Before Your Procedure. Not on [employer]? Go to [email or web address] and click the Sign Up Now link to request an activation code. Current as of: February 28, 2020?Content Version: 12.7 ?? [employer]. Care instructions adapted under license by your healthcare professional. This care instruction is for use with your licensed healthcare professional. If you have questions about a medical condition or this instruction, always ask your healthcare professional. [employer] disclaims any warranty or liability for your use of this information. E PRACTITIONER PER DIEM documented in this encounter Progress Notes * Siddhartha Loyd MD - 12/05/2020 10:30 AM CST Surgical Services History and Physical Name: Edilberto Hawley Date of : 1955 Age: 65 y.o. Sex: male Patient's Primary Care Physician: TIFFANI Galeano Referred by: Leonard Jasso, * Chief Complaint: Chief Complaint Patient presents with ??? Gastroesophageal Reflux ??? Difficulty Swallowing HPI: 65 y.o. male presents today with a primary complaint of an episode of choking and difficulty swallowing. Last week, the patient describes having an small amount of food causing difficulty swallowing. He also has some pain in the substernal area associated with this difficulty swallowing. He does not take any PPI or H2 blockers at this time. He has a lot of difficulty with his sinuses and sinus drainage. He has had an episode of antibiotics to take care of his sinusitis. He has never had anupper endoscopy. He denies any family history of esophageal or stomach cancers. He does have a pasthistory of EtOH and drug abuse. He has been clear of drug and EtOH for some time. He is not on any blood thinners. He did have a colonoscopy in the past. This was positive polyps. Patient has known cholelithiasis. He continues to deny any pain in the upper abdomen or any food intolerances consistent with symptomatic cholelithiasis. Patient is here for further exam and care. Past Medical History: No Known Allergies Past Medical History: Diagnosis Date ??? Arthritis ??? Back injury ??? Chronic back pain greater than 3 months duration ??? GERD (gastroesophageal reflux disease) ??? Migraines ??? Osteomyelitis of ankle or foot, acute, right ([facility]) 2018 Stepped on nail ??? Shoulder injury ??? Substance abuse ([facility]) cocaine, crystal meth nothing since 1996 [...] or constipation. No blood in the stool. Recentepisodes of dysphagia. See HPI for details. GENITOURINARY: No frequency or burning with urination. No hematuria. NEUROMUSCULAR: Grossly intact. No obvious abnormality noted. ENDOCRINE: No hot or cold intolerance. No excessive bruising or bleeding. INTEGUMENTARY: No open wound. No change in moles. No rashes. The rest of review of systems is unremarkable. Physical Examination: Vitals: 12/05/20 1030 BP: 128/75 Pulse: 80 Resp: 16 Temp: 36.3 ??C (97.3 ??F) SpO2: 96% Weight: 92.1 kg (203 lb) Height: 1.803 m (5' 11 ) Body mass index is 28.31 kg/m??. GENERAL: 65-year-old no apparent distress. CHEST: Lungs are clear to auscultation. HEART: Heart is regular rate and rhythm. ABDOMEN: Abdomen is soft with positive bowel sounds. No masses/organomegaly. No guarding or rebound. EXTREMITIES: Grossly intact. LAB AND RADIOLOGY: No visits with results within 30 Day(s) from this visit. Latest known visit with results is: Hospital Outpatient Visit on 09/19/2020 Component Date Value ??? Specimen Description 09/19/2020 ABSCESS ??? Special Requests 09/19/2020 RIGHT AXILLARY ABSCESS ??? Gram Stain 09/19/2020 OCCASIONAL GRAM POSITIVE COCCI ??? Gram Stain 09/19/2020 Value:RARE EPITHELIAL CELLS ??? Gram Stain 09/19/2020 Value:RARE WBCs ??? Culture Results 09/19/2020 OCCASIONAL METHICILLIN RESISTANT STAPHYLOCOCCUS AUREUS* ??? Specimen Description 09/19/2020 ABSCESS ??? Special Requests 09/19/2020 RIGHT AXILLARY ??? Culture Results 09/19/2020 NO GROWTH 7 DAYS Impression and Plan: 65-year-old with dysphagia, question of source. I recommended upper endoscopy.The risk and benefits of the procedure were explained in detail. Risk of anesthesia. The risk of injuring the bowel or manipulation the scope or during any biopsy or dilatation process. The patient understands, and wished to proceed. We will get him scheduled for his EGD. The primary encounter diagnosis was Dysphasia. Diagnoses of Gastroesophageal reflux disease, unspecified whether esophagitis present and Calculus of gallbladder without cholecystitis without obstruction were also pertinent to this visit. Siddhartha Loyd MD, FACS E PRACTITIONER PER DIEM documented in this encounter Plan of Treatment [...] Diagnoses Diagnosis Dysphasia- Primary Other speech disturbance Gastroesophageal reflux disease, unspecified whether esophagitis present Calculus of gallbladder without cholecystitis without obstruction Calculus of gallbladder without mention of cholecystitis or obstruction documented in this encounter Care Teams Safety Physician Relationship Specialty Start Date End Date Leonard Jasso APRN [address] [facility] [address] [place] [address] PCP - General Family Medicine 08/15/19 04/30/21 Lacey Perdue MD [address] [phone] Referring Physician Infectious Diseases 06/28/18 documented as of this encounter
--- OUTSIDE RECORDS SUMMARY | 2024-11-23 00:27 | XMS_ITS | Encounter Summary ---
Author Organization [employer] ) Address [address] [place] [address] Care Team Providers Care Instructional Services Specialist Name Role Phone Lacey Perdue MD Unavailable [phone] Leonard Jasso APRN Primary Care Provide r Encounter Details Date Type Department Care Team (Latest Contact Info) Description 09/24/2020 Travel Social History Tobacco Use Types Packs/Day [...] COVID-19? No / Unsure 09/24/2020 2:49 PM OPTICAL BRIGHTENER MAKER HELPER documented as of this encounter Functional Status * Are you deaf or do you have serious difficulty hearing? Answer Date of Assessment Author No 10/25/2017 2:00 PM OPTICAL BRIGHTENER MAKER HELPER Deonna Galvan ARNP * Are you blind or do you have serious difficulty seeing, even when wearing glasses? Answer Date of Assessment Author No 10/25/2017 2:00 PM OPTICAL BRIGHTENER MAKER HELPER Deonna Galvan ARNP * Do you have serious difficulty walking or climbing stairs? (5 years old or older) Answer Date of Assessment Author No 10/25/2017 2:00 PM Deonna Padilla, TELEVISION CABLE INSTALLER * Do you have difficulty dressing or bathing? (5 years old or older) Answer Date of Assessment Author No 10/25/2017 2:00 PM Deonna Padilla, TELEVISION CABLE INSTALLER * Because of a physical, mental, or emotional condition, do you have difficulty doing errands alone such as visiting a doctor's office or shopping? (15 years old or older) Answer Date of Assessment Author No 10/25/2017 2:00 PM Deonna Padilla, TELEVISION CABLE INSTALLER documented as of this encounter Mental Status * Because of a physical, mental, or emotional condition, do you have serious difficulty concentrating, remembering, or making decisions? (5 years old or older) Answer Entry Date Author No 10/25/2017 2:00 PM Deonna Padilla, TELEVISION CABLE INSTALLER documented in this encounter Plan of Treatment Not on file documented as of this encounter Goals Goal Patient Goal Type Associated Problems Recent Progress Patient-Stated? Author Blood Pressure < 140/90 Blood Pressure 134/86(2022 2:25 PM CDT) No Leonard Jasso APRN documented as of this encounter Visit Diagnoses Not on filedocumented in this encounter Care Teams Instructional Services Specialist Relationship Specialty Start Date End Date Leonard Jasso APRN [address] [facility] [address] [place] [address] PCP - General Family Medicine 08/15/19 04/30/21 Lacey Perdue MD [address] [phone] Referring Physician Infectious Diseases 06/28/18 documented as of this encounter
--- OUTSIDE RECORDS SUMMARY | 2024-11-23 00:27 | XMS_ITS | Encounter Summary ---
Author Organization [employer] Address [address] [place] [address] Care Team Providers Care Angular Js Developer Name Role Phone Lacey Perdue MD Unavailable [phone] Leonard Jasso APRN Primary Care Provide r Encounter Details Date Type Department Care Team (Latest Contact Info) Description 09/19/2020 Travel Social History Tobacco Use Types Packs/Day [...] COVID-19? No / Unsure 09/19/2020 11:12 AM CARPENTER HELPER MAINTENANCE documented as of this encounter Functional Status * Are you deaf or do you have serious difficulty hearing? Answer Date of Assessment Author No 10/25/2017 2:00 PM CARPENTER HELPER MAINTENANCE Deonna Galvan ARNP * Are you blind or do you have serious difficulty seeing, even when wearing glasses? Answer Date of Assessment Author No 10/25/2017 2:00 PM CARPENTER HELPER MAINTENANCE Deonna Galvan ARNP * Do you have serious difficulty walking or climbing stairs? (5 years old or older) Answer Date of Assessment Author No 10/25/2017 2:00 PM Deonna Padilla, PUBLICITY PERSON * Do you have difficulty dressing or bathing? (5 years old or older) Answer Date of Assessment Author No 10/25/2017 2:00 PM Deonna Padilla, PUBLICITY PERSON * Because of a physical, mental, or emotional condition, do you have difficulty doing errands alone such as visiting a doctor's office or shopping? (15 years old or older) Answer Date of Assessment Author No 10/25/2017 2:00 PM Deonna Padilla, PUBLICITY PERSON documented as of this encounter Mental Status * Because of a physical, mental, or emotional condition, do you have serious difficulty concentrating, remembering, or making decisions? (5 years old or older) Answer Entry Date Author No 10/25/2017 2:00 PM Deonna Padilla, PUBLICITY PERSON documented in this encounter Plan of Treatment Not on file documented as of this encounter Goals Goal Patient Goal Type Associated Problems Recent Progress Patient-Stated? Author Blood Pressure < 140/90 Blood Pressure 134/86(2022 2:25 PM CDT) No Leonard Jasso APRN documented as of this encounter Visit Diagnoses Not on filedocumented in this encounter Care Teams Angular Js Developer Relationship Specialty Start Date End Date Leonard Jasso APRN [address] [facility] [address] [place] [address] PCP - General Family Medicine 08/15/19 04/30/21 Lacey Perdue MD [address] [phone] Referring Physician Infectious Diseases 06/28/18 documented as of this encounter
--- OUTSIDE RECORDS SUMMARY | 2024-11-23 00:28 | XMS_ITS | Encounter Summary ---
Author Organization [employer] Address [address] [place] [address] Care Team Providers Care Windsmith Name Role Phone Lacey Perdue MD Unavailable [phone] Leonard Jasso APRN Primary Care Provide r Reason for Visit * Reason Comments Medication Refill Encounter Details Date Type Department Care Team (Late st Contact Info) Description 01/15/[address] [address] Leonard Jasso, ANGIE [address] [place] [address] Social History Tobacco Use Types Packs/Day [...] Author No 10/25/2017 2:00 PM Deonna Padilla, ANODISER * Are you blind or do you have serious difficulty seeing, even when wearing glasses? Answer Date of Assessment Author No 10/25/2017 2:00 PM Deonna Padilla, ANODISER * Do you have serious difficulty walking or climbing stairs? (5 years old or older) Answer Date of Assessment Author No 10/25/2017 2:00 PM Deonna Padilla, ANODISER * Do you have difficulty dressing or bathing? (5 years old or older) Answer Date of Assessment Author No 10/25/2017 2:00 PM Deonna Padilla, ANODISER * Because of a physical, mental, or emotional condition, do you have difficulty doing errands alone such as visiting a doctor's office or shopping? (15 years old or older) Answer Date of Assessment Author No 10/25/2017 2:00 PM Deonna Padilla, ANODISER documented as of this encounter Mental Status [...] on filedocumented in this encounter Care Teams Windsmith Relationship Specialty Start Date End Date Leonard Jasso APRN [address] [facility] [address] [place] [address] PCP - General Family Medicine 08/15/19 04/30/21 Lacey Perdue MD [address] [phone] Referring Physician Infectious Diseases 06/28/18 documented as of this encounter
--- OUTSIDE RECORDS SUMMARY | 2024-11-23 00:28 | XMS_ITS | Encounter Summary ---
Author Organization [employer] Address [address] [place] [address] Care Team Providers Care Developing Machine Operator Name Role Phone Lacey Perdue MD Unavailable [phone] Leonard Jasso APRN Primary Care Provide r Encounter Details Date Type Department Care Team (Latest Contact Info) Description 05/10/2020 Travel Social History Tobacco Use Types Packs/Day [...] have Coronavirus / COVID-19? No / Unsure 05/10/2020 3:09 PM CDT documented as of this encounter [...] No 10/25/2017 2:00 PM Deonna Padilla S, ACCOUNT RECEIVABLE ASSOCIATE * Do you have difficulty dressing or bathing? (5 years old or older) Answer Date of Assessment Author No 10/25/2017 2:00 PM Deonna Padilla S, ACCOUNT RECEIVABLE ASSOCIATE * Because of a physical, mental, or emotional condition, do you have difficulty doing errands alone such as visiting a doctor's office or shopping? (15 years old or older) Answer Date of Assessment Author No 10/25/2017 2:00 PM Deonna Padilla S, ACCOUNT RECEIVABLE ASSOCIATE documented as of this encounter Mental Status * Because of a physical, mental, or emotional condition, do you have serious difficulty concentrating, remembering, or making decisions? (5 years old or older) Answer Entry Date Author No 10/25/2017 2:00 PM Deonna Padilla, ACCOUNT RECEIVABLE ASSOCIATE documented in this encounter Plan of Treatment Not on file documented as of this encounter Goals Goal Patient Goal Type Associated Problems Recent Progress Patient-Stated? Author Blood Pressure < 140/90 Blood Pressure 134/86(2022 2:25 PM CDT) No Leonard Jasso APRN documented as of this encounter Visit Diagnoses Not on filedocumented in this encounter Care Teams Developing Machine Operator Relationship Specialty Start Date End Date Leonard Jasso APRN [address] [facility] [address] [place] [address] PCP - General Family Medicine 08/15/19 04/30/21 Lacey Perdue MD [address] [phone] Referring Physician Infectious Diseases 06/28/18 documented as of this encounter
--- OUTSIDE RECORDS SUMMARY | 2024-11-23 00:28 | XMS_ITS | Encounter Summary ---
Author Organization [facility] Address [address] [place] [address] Care Team Providers Care Embroidery Specialist Name Role Phone Lacey Perdue MD Unavailable [phone] Leonard Jasso APRN Primary Care Provide r Reason for Visit * Reason Onset Date Comments Medication Refill 05/15/2020 Encounter Details Date Type Department Care Team (Late st Contact Info) Description 05/15/2020 Refill [facility] [address] [place], [place] [id number] Maxine Howell, [facility] [address] [facility] [address] [place], [place] [id number] Social History Tobacco Use Types Packs/Day Years [...] have Coronavirus / COVID-19? No / Unsure 05/14/2020 3:09 PM CDT documented as of this encounter Functional Status * Are you deaf or do you have serious difficulty hearing? Answer Date of Assessment Author No 10/25/2017 2:00 PM PAD EXTRACTOR TENDER Deonna Galvan y S, SUTURE POLISHER * Are you blind or do you have serious difficulty seeing, even when wearing glasses? Answer Date of Assessment Author No 10/25/2017 2:00 PM PAD EXTRACTOR TENDER Deonna Galvan y S, SUTURE POLISHER * Do you have serious difficulty walking or climbing stairs? (5 years old or older) Answer Date of Assessment Author No 10/25/2017 2:00 PM PAD EXTRACTOR TENDER Deonna Galvan y S, SUTURE POLISHER * Do you have difficulty dressing or bathing? (5 years old or older) Answer Date of Assessment Author No 10/25/2017 2:00 PM PAD EXTRACTOR TENDER Cole Am y S, SUTURE POLISHER * Because of a physical, mental, or emotional condition, do you have difficulty doing errands alone such as visiting a doctor's office or shopping? (15 years old or older) Answer Date of Assessment Author No 10/25/2017 2:00 PM PAD EXTRACTOR TENDER Cole Am y S, SUTURE POLISHER documented as of this encounter Mental Status * Because of a physical, mental, or emotional condition, do you have serious difficulty concentrating, remembering, or making decisions? (5 years old or older) Answer Entry Date Author No 10/25/2017 2:00 PM JOHN Galvan Am y S, SUTURE POLISHER documented in this encounter Plan of Treatment Not on file documented as of this encounter Goals Goal Patient Goal Type Associated Problems Recent Progress Patient-Stated? Author Blood Pressure < 140/90 Blood Pressure 134/86(2022 2:25 PM CDT) No Leonard Jasso APRN documented as of this encounter Visit Diagnoses Not on filedocumented in this encounter Care Teams Embroidery Specialist Relationship Specialty Start Date End Date Leonard Jasso APRN [address] [facility] [address] [place] [address] PCP - General Family Medicine 08/15/19 04/30/21 Lacey Perdue MD [address] [phone] Referring Physician Infectious Diseases 06/28/18 documented as of this encounter
--- OUTSIDE RECORDS SUMMARY | 2024-11-23 00:28 | XMS_ITS | Encounter Summary ---
Author Organization [facility] Address [address] [place] [address] Care Team Providers Care Client Sales And Service Officer Name Role Phone Lacey Perdue MD Unavailable [phone] Leonard Jasso HEALTH CONSULTANT Primary Care Provide r Reason for Visit * MRI/CAT Scan (Routine) - Closed Specialty Diagnoses / Procedures Referred By Contjessica almaguer Referred To Contact Radiology Diagnoses Right lower quadrant abdominal pain Procedures CT Abdomen and Pelvis wo Contrast CT Abdomen and Pelvis w Contrast Leonard Jasso, HEALTH CONSULTANT [address] [place] [address] Phone: tel: Referral ID Status Reason Start Date Expiration Date Visits Re quested Visits Authorized [id number] Closed 05/10/2020 05/10/2021 1 1 Encounter Details Date Type Department Care Team (Latest Contact Info) Description 05/10/2020 4:00 PM CDT - 05/10/2020 4:19 PM CDT Hospital Encounter [facility] [address] [place] [address] Right lower quadrant abdominal pain Discharge Disposition: Home - Discharge [...] Author No 10/25/2017 2:00 PM Deonna Padilla, ADULT BASIC EDUCATION TEACHER * Do you have serious difficulty walking or climbing stairs? (5 years old or older) Answer Date of Assessment Author No 10/25/2017 2:00 PM Deonna Padilla, ADULT BASIC EDUCATION TEACHER * Do you have difficulty dressing or bathing? (5 years old or older) Answer Date of Assessment Author No 10/25/2017 2:00 PM Deonna Padilla ADULT BASIC EDUCATION TEACHER * Because of a physical, mental, or emotional condition, do you have difficulty doing errands alone such as visiting a doctor's office or shopping? (15 years old or older) Answer Date of Assessment Author No 10/25/2017 2:00 PM Deonna Padilla, ADULT BASIC EDUCATION TEACHER documented as of this encounter Mental Status * Because of a physical, mental, or emotional condition, do you have serious difficulty concentrating, remembering, or making decisions? (5 years old or older) Answer Entry Date Author No 10/25/2017 2:00 PM Deonna Padilla ADULT BASIC EDUCATION TEACHER documented in this encounter Medications at Time [...] 220 mg by mouth daily. amitriptyline (ELAVIL) 75 MG tablet TAKE ONE TABLET DAILY. 30 tablet 5 04/10/2020 0 baclofen (LIORESAL) 10 MG tablet TAKE ONE TABLET BY MOUTH NIGHTLY 30 tablet 4 04/01/2020 0 Diclofenac Sodium 1 % CREA Place onto [...] mouth every morning before breakfast. 30 tablet 05/10/2020 0 oxyCODONE-acetamin ophen (PERCOCET) 10-325 MG per tablet Take 1 tablet by mouth every 6 (six) hours as needed for Pain. 120 tablet 04/15/2020 0 tamsulosin HCl (FLOMAX) 0.4 MG capsule Take 1 capsule by mouth daily. 30 capsule 5 11/04/2018 1 documented as of this encounter Plan of Treatment Scheduled Orders Name Type Priority Associated Diagnoses Orde r Schedule CT Abdomen and Pelvis wo Contrast Imaging Routine Right lower quadrant abdominal pain Once for 1 Occurrences starting 05/10/2020 until 05/10/2020 documented as of this encounter Goals Goal Patient Goal Type Associated Problems Recent Progress Patient-Stated? Author Blood Pressure < 140/90 Blood Pressure 134/86(2022 2:25 PM CDT) No Leonard Jasso APRN documented as of this encounter Visit Diagnoses Diagnosis Right lower quadrant abdominal pain Abdominal pain, right lower quadrant documented in this encounter Care Teams Client Sales And Service Officer Relationship Specialty Start Date End Date Leonard Jasso APRN [address] [facility] [address] [place] [address] PCP - General Family Medicine 08/15/19 04/30/21 Lacey Perdue MD [address] [phone] Referring Physician Infectious Diseases 06/28/18 documented as of this encounter
--- OUTSIDE RECORDS SUMMARY | 2024-11-23 00:28 | XMS_ITS | Encounter Summary ---
Author Organization [facility] Address [address] [place] [address] Care Team Providers Care Stereotyper Apprentice Name Role Phone Lacey Perdue MD Unavailable [phone] Leonard Jasso APRN Primary Care Provide r Reason for Visit * Reason Comments Abdominal Pain Patient complains of right side pain, seems to only happen in the technical service rep hours. Encounter Details Date Type Department Care Team (Late st Contact Info) Description 05/10/2020 3:30 PM CDT Office Visit [address] [phone] Leonard Jasso, ANGIE [address] [place] [phone] Right lower quadrant abdominal pain (Primary Dx) Social History Tobacco [...] Sign Reading Time Taken Comments Blood Pressure 126/90 05/10/2020 3:16 PM CDT Pulse 96 05/10/2020 3:16 PM CDT Temperature 36.3 ??C (97.3 ??F) 05/10/2020 3:16 PM CD T Respiratory Rate 20 05/10/2020 3:16 PM CDT Oxygen Saturation 96% 05/10/2020 3:16 PM CDT Inhaled Oxygen Concentration - - Weight 87.5 kg (193 lb) 05/10/2020 3:16 PM CDT Height 185.4 cm (6' 1 ) 05/10/2020 3:16 PM CDT Body Mass Index 25.46 05/10/2020 3:16 PM CDT documented in this encounter Functional Status * Are you deaf or do you have serious difficulty hearing? Answer Date of Assessment Author No 10/25/2017 2:00 PM Deonna Padilla, BRIDGE MAINTENANCE WORKER * Are you blind or do you have serious difficulty seeing, even when wearing glasses? Answer Date of Assessment Author No 10/25/2017 2:00 PM Deonna Padilla S, BRIDGE MAINTENANCE WORKER * Do you have serious difficulty walking or climbing stairs? (5 years old or older) Answer Date of Assessment Author No 10/25/2017 2:00 PM Deonna Padilla, BRIDGE MAINTENANCE WORKER * Do you have difficulty dressing or bathing? (5 years old or older) Answer Date of Assessment Author No 10/25/2017 2:00 PM Deonna Padilla S, BRIDGE MAINTENANCE WORKER * Because of a physical, mental, or emotional condition, do you have difficulty doing errands alone such as visiting a doctor's office or shopping? (15 years old or older) Answer Date of Assessment Author No 10/25/2017 2:00 PM Deonna Pdailla, BRIDGE MAINTENANCE WORKER documented as of this encounter Mental Status * Because of a physical, mental, or emotional condition, do you have serious difficulty concentrating, remembering, or making decisions? (5 years old or older) Answer Entry Date Author No 10/25/2017 2:00 PM Deonna Padilla, BRIDGE MAINTENANCE WORKER documented in this encounter Patient Instructions * Patient Instructions* Leonard Jasso APNP - 05/10/2020 3:30 PM CDT We will call you with results of testing when complete. To ER/911 if doubled over in abdominal pain. Avoid spicey food or foods high in acid. Avoid caffeine if possible because caffeine increases stomach acid. Avoid tight clothing. Weight loss can help acid reflux also. Take medication daily as prescribed. Over the counter Maximum Strength Antacid Liquid as needed for breakthrough acid reflux symptoms. Follow up if condition is not resolved with treatment. documented in this encounter Progress Notes * Leonard Jasso APNP - 05/10/2020 3:30 PM CDT Chief Complaint Patient presents with ??? Abdominal Pain Patient complains of right side pain, seems to only happen in the technical service rep hours. [address] [address] Dept: [phone] Dept Loc: [phone] Loc Date: 05/10/2020 Name: Edilberto Hawley : 1955 PCP: TIFFANI Galeano Subjective: Patient ID: Edilberto Hawley is a 64 y.o. male. History provided by: Patient Abdominal Pain This is a new problem. The current episode started more than 1 month ago. The onset quality is sudden. The problem occurs intermittently. The most recent episode lasted 2 hours. The problem has been resolved. The pain is located in the RLQ. The patient is experiencing no pain. The quality of the pain is burning. The abdominal pain does not radiate. Pertinent negatives include no belching, constipation, diarrhea, fever, nausea or vomiting. Nothing aggravates the pain. The pain is relieved by nothing. He has tried nothing for the symptoms. The treatment provided no relief. Prior diagnostic workup includes upper endoscopy and lower endoscopy. Patient's medications, allergies, past medical, surgical, social [...] agitation and behavioral problems. Objective: Blood pressure 126/90, pulse 96, temperature 36.3 ??C (97.3 ??F), resp. rate 20, height 1.854 m (6'1 ), weight 87.5 kg (193 lb), SpO2 96 %., BMI Body mass index is 25.46 kg/m??. Physical Exam Vitals signs and nursing note reviewed. Constitutional: General: He is not in acute distress. Appearance: He is well-developed. He is not ill-appearing or diaphoretic. HENT: Head: Normocephalic and atraumatic. Eyes: Pupils: Pupils are equal, round, and reactive to light. Cardiovascular: Rate and Rhythm: Normal rate and regular rhythm. Heart sounds: Normal heart sounds. Pulmonary: Effort: Pulmonary effort is normal. No respiratory distress. Breath sounds: Normal breath sounds. No wheezing. Abdominal: General: Bowel sounds are normal. There is no distension or abdominal bruit. There are no signs of injury. Palpations: Abdomen is soft. There is no mass. Tenderness: There is abdominal tenderness in the right lower quadrant. Hernia: No hernia is present. Skin: General: Skin is warm and dry. Neurological: Mental Status: He is alert and oriented to person, place, and time. Assessment/Plan: Problem List Items Addressed This Visit None Visit Diagnoses Right lower quadrant abdominal pain - Primary Relevant Orders CBC and differential (Completed) Comprehensive metabolic panel (Completed) We will call you with results of testing when complete. To ER/911 if doubled over in abdominal pain. Avoid spicey food or foods high in acid. Avoid caffeine if possible because caffeine increases stomach acid. Avoid tight clothing. Weight loss can help acid reflux also. Take medication daily as prescribed. Over the counter Maximum Strength Antacid Liquid as needed for breakthrough acid reflux symptoms. Follow up if condition is not resolved with treatment. Next Visit: Follow up if symptoms worsen or fail to improve. Encounter of: 05/10/2020 Signed: TIFFANI Galeano 05/13/2020 3:19 PM documented in this encounter Plan of Treatment Not on file documented as of this encounter Goals Goal Patient Goal Type Associated Problems Recent Progress Patient-Stated? Author Blood Pressure < 140/90 Blood Pressure 134/86(2022 2:25 PM CDT) No Leonard Jasso APRN documented as of this encounter Results * (ABNORMAL) Comprehensive metabolic panel (05/10/2020 4:43 PM CDT) Sodium 140 136 - 145 mmol/L 05/10/2020 5:27 PM [facility] Potassium 4.2 3.5 - 5.1 mmol/L 05/10/2020 5:27 PM [facility] Chloride 104 98 - 107 mmol/L 05/10/2020 5:27 PM [facility] CO2 27 21 - 32 mmol/L 05/10/2020 5:27 PM [facility] Glucose 143(H) 74 - 106 mg/dL 05/10/2020 5:27 PM [facility] BUN 16 7.0 - 18.0 mg/dL 05/10/2020 5:27 PM [facility] Creatinine 1.23 0.70 - 1.30 mg/dL 05/10/2020 5:27 PM [facility] Calcium 9.3 8.5 - 10.1 mg/dL 05/10/2020 5:27 PM [facility] Total Protein 7.9 6.4 - 8.2 g/dL 05/10/2020 5:27 PM [facility] Albumin 4.2 3.4 - 5.0 g/dL 05/10/2020 5:27 PM [facility] Bilirubin Total 0.7 0.2 - 1.0 mg/dL 05/10/2020 5:27 PM [facility] Alkaline Phosphatase 91 56 - 119 U/L 05/10/2020 5:27 PM [facility] AST 115(H) 15 - 37 U/L 05/10/2020 5:27 PM [facility] ALT 167(H) 16 - 63 U/L 05/10/2020 5:27 PM [facility] Anion Gap 9 8 - 16 mmol/L 05/10/2020 5:27 PM [facility] BUN/Creatinine Ratio 13.0 05/10/2020 5:27 PM [facility] Osmolality Calculated 283(L) 285 - 295 mosm/kg 05/10/2020 5:27 PM [facility] Globulin 3.7(H) 2.3 - 3.4 g/dL 05/10/2020 5:27 PM [facility] A/G Ratio 1.1(L) 1.2 - 2.4 05/10/2020 5:27 PM [facility] Creatinine Based eGFR 61 mL/min/[1. 73_m2] 05/10/2020 5:27 PM [facility] Comment:GFR 60-90 Mild decre ased GFR. EGFR /Prydeinig 70 mL/min/[1. 73_m2] 05/10/2020 5:27 PM [facility] Comment:GFR 60-90 Mild decre ased GFR. Serum specimen (specimen) 05/10/2020 4:43 PM CDT 05/10/2020 4:47 PM CDT us Leonard Jasso SHOWER SCREEN INSTALLER LAB BLOOD ORDERABLES Final Result [facility] [address] [facility] [address] [place] [address] * (ABNORMAL) CBC and differential (05/10/2020 4:43 PM CDT) WBC 10.78 4.00 - 11.00 10*3/uL 05/10/2020 4:51 PM [facility] RBC 5.09 4.50 - 6.50 10*6/uL 05/10/2020 4:51 PM [facility] HGB 15.8 13.8 - 18.0 g/dL 05/10/2020 4:51 PM [facility] HCT 46.5 40.0 - 54.0 % 05/10/2020 4:51 PM [facility] MCV 91.4 76 - 99 fL 05/10/2020 4:51 PM [facility] MCH 31.0 27.0 - 32.0 pg 05/10/2020 4:51 PM [facility] MCHC 34.0 30.0 - 35.0 g/dL 05/10/2020 4:51 PM [facility] Platelets 205 135 - 470 10*3/uL 05/10/2020 4:51 PM [facility] RDW-CV 11.9 11.0 - 17.0 % 05/10/2020 4:51 PM [facility] MPV 9.7 8.0 - 12.5 fL 05/10/2020 4:51 PM [facility] Differential Type AUTOMATED DIFFERENTIAL 05/10/2020 4:52 PM [facility] Neutrophil % 70.4 45.0 - 75.0 % 05/10/2020 4:52 PM [facility] Lymphocytes % 20.0 20.0 - 45.0 % 05/10/2020 4:52 PM [facility] Monocyte % 7.5 0.0 - 10.0 % 05/10/2020 4:52 PM [facility] Eosinophils Relative % 1.2 0.0 - 5.0 % 05/10/2020 4:52 PM [facility] Basophils % 0.4 0.0 - 2.0 % 05/10/2020 4:52 PM [facility] Immature Granulocytes% 0.5 0.0 - 1.6 % 05/10/2020 4:52 PM [facility] Neutrophils Absolute 7.59 2.00 - 7.90 10*3/uL 05/10/2020 4:52 PM [facility] Lymphocytes Absolute 2.16 1.00 - 4.00 10*3/uL 05/10/2020 4:52 PM [facility] Monos Absolute 0.81(H) 0.00 - 0.80 10*3/uL 05/10/2020 4:52 PM [facility] Eosinophils Absolute Count 0.13 0.00 - 0.40 10*3/uL 05/10/2020 4:52 PM [facility] Basophils Absolute 0.04 0.00 - 0.10 10*3/uL 05/10/2020 4:52 PM [facility] Immature Granulocytes Absolute 0.05 0.0 - 0.20 10*3/uL 05/10/2020 4:52 PM [facility] Serum specimen (specimen) 05/10/2020 4:43 PM CDT 05/10/2020 4:47 PM CDT Leonard Jasso APRN LAB BLOOD ORDERABLES Final Result [facility] [address] [facility] [address] [place] [address] documented in this encounter Visit Diagnoses Diagnosis Right lower quadrant abdominal pain- Primary Abdominal pain, right lower quadrant documented in this encounter Care Teams Stereotyper Apprentice Relationship Specialty Start Date End Date Leonard Jasso APRN [address] [facility] [address] [place] [address] PCP - General Family Medicine 08/15/19 04/30/21 Lacey Perdue MD [address] [phone] Referring Physician Infectious Diseases 06/28/18 documented as of this encounter
--- OUTSIDE RECORDS SUMMARY | 2024-11-23 00:28 | XMS_ITS | Encounter Summary ---
Author Organization [facility] Address [address] [place] [address] Care Team Providers Care Regional Transfer Liaison Name Role Phone Lacey Perdue MD Unavailable [phone] Leonard Jasso APRN Primary Care Provide r Reason for Visit * Reason Comments Medication Refill Encounter Details Date Type Department Care Team (Late st Contact Info) Description 06/17/[address] [address] Leonard Jasso, ANGIE [address] [place] [id number] Social History Tobacco Use Types Packs/Day [...] have Coronavirus / COVID-19? No / Unsure 06/08/2020 7:44 AM CDT documented as of this encounter Functional Status * Are you deaf or do you have serious difficulty hearing? Answer Date of Assessment Author No 10/25/2017 2:00 PM PRESIDENT AND CHIEF OPERATING OFFICER Galvan, Am y S, TECHNICAL OPERATIONS MANAGER * Are you blind or do you have serious difficulty seeing, even when wearing glasses? Answer Date of Assessment Author No 10/25/2017 2:00 PM PRESIDENT AND CHIEF OPERATING OFFICER Galvan, Am y S, TECHNICAL OPERATIONS MANAGER * Do you have serious difficulty walking or climbing stairs? (5 years old or older) Answer Date of Assessment Author No 10/25/2017 2:00 PM PRESIDENT AND CHIEF OPERATING OFFICER Galvan, Am y S, TECHNICAL OPERATIONS MANAGER * Do you have difficulty dressing or bathing? (5 years old or older) Answer Date of Assessment Author No 10/25/2017 2:00 PM PRESIDENT AND CHIEF OPERATING OFFICER Galvan, Am y S, TECHNICAL OPERATIONS MANAGER * Because of a physical, mental, or emotional condition, do you have difficulty doing errands alone such as visiting a doctor's office or shopping? (15 years old or older) Answer Date of Assessment Author No 10/25/2017 2:00 PM PRESIDENT AND CHIEF OPERATING OFFICER Galvan, Am y S, TECHNICAL OPERATIONS MANAGER documented as of this encounter Mental Status * Because of a physical, mental, or emotional condition, do you have serious difficulty concentrating, remembering, or making decisions? (5 years old or older) Answer Entry Date Author No 10/25/2017 2:00 PM PRESIDENT AND CHIEF OPERATING OFFICER Galvan, Am y S, TECHNICAL OPERATIONS MANAGER documented in this encounter Plan of Treatment Not on file documented as of this encounter Goals Goal Patient Goal Type Associated Problems Recent Progress Patient-Stated? Author Blood Pressure < 140/90 Blood Pressure 134/86(2022 2:25 PM CDT) No Leonard Jasso APRN documented as of this encounter Visit Diagnoses Not on filedocumented in this encounter Care Teams Regional Transfer Liaison Relationship Specialty Start Date End Date Leonard Jasso APRN [address] [facility] [address] [place] [address] PCP - General Family Medicine 08/15/19 04/30/21 Lacey Perdue MD [address] [phone] Referring Physician Infectious Diseases 06/28/18 documented as of this encounter
--- OUTSIDE RECORDS SUMMARY | 2024-11-23 00:28 | XMS_ITS | Encounter Summary ---
Author Organization [facility] [employer] Address [address] [place] [address] Care Team Providers Care Mold Burner Name Role Phone Lacey Perdue MD Unavailable [phone] Leonard Jasso APRN Primary Care Provide r Encounter Details Date Type Department Care Team (Latest Contact Info) Description 06/08/2020 Travel Social History Tobacco Use Types Packs/Day [...] No 10/25/2017 2:00 PM Deonna Padilla S, BOBBIN HANDLER * Do you have difficulty dressing or bathing? (5 years old or older) Answer Date of Assessment Author No 10/25/2017 2:00 PM Deonna Padilla S, BOBBIN HANDLER * Because of a physical, mental, or emotional condition, do you have difficulty doing errands alone such as visiting a doctor's office or shopping? (15 years old or older) Answer Date of Assessment Author No 10/25/2017 2:00 PM Deonna Padilla S, BOBBIN HANDLER documented as of this encounter Mental Status * Because of a physical, mental, or emotional condition, do you have serious difficulty concentrating, remembering, or making decisions? (5 years old or older) Answer Entry Date Author No 10/25/2017 2:00 PM Deonna Padilla, BOBBIN HANDLER documented in this encounter Plan of Treatment Not on file documented as of this encounter Goals Goal Patient Goal Type Associated Problems Recent Progress Patient-Stated? Author Blood Pressure < 140/90 Blood Pressure 134/86(2022 2:25 PM CDT) No Leonard Jasso APRN documented as of this encounter Visit Diagnoses Not on filedocumented in this encounter Care Teams Mold Burner Relationship Specialty Start Date End Date Leonard Jasso APRN [address] [facility] [address] [place] [address] PCP - General Family Medicine 08/15/19 04/30/21 Lacey Perdue MD [address] [phone] Referring Physician Infectious Diseases 06/28/18 documented as of this encounter
--- OUTSIDE RECORDS SUMMARY | 2024-11-23 00:28 | XMS_ITS | Encounter Summary ---
Author Organization [employer] Address [address] [place] [address] Care Team Providers Care Neon Sign Servicer Name Role Phone Lacey Perdue MD Unavailable [phone] Leonard Jasso APRN Primary Care Provide r Reason for Visit * Reason Onset Date Comments Results 02/21/2020 lipid CMP CBC TS H T4 PSA Encounter Details Date Type Department Care Team (Late st Contact Info) Description 02/21/[address] [address] Zoey Seaman, [place] 1454 [facility] [address] [place] [address] Results (lipid CMP CBC TSH T4 PSA ) Social History Tobacco Use Types Packs/Day [...] of Assessment Author No 10/25/2017 2:00 PM WARP BLEACHING VAT TENDER Galvan, Am y S, DISTRICT COURT JUSTICE * Are you blind or do you have serious difficulty seeing, even when wearing glasses? Answer Date of Assessment Author No 10/25/2017 2:00 PM WARP BLEACHING VAT TENDER Galvan, Am y S, DISTRICT COURT JUSTICE * Do you have serious difficulty walking or climbing stairs? (5 years old or older) Answer Date of Assessment Author No 10/25/2017 2:00 PM WARP BLEACHING VAT TENDER Galvan, Am y S, DISTRICT COURT JUSTICE * Do you have difficulty dressing or bathing? (5 years old or older) Answer Date of Assessment Author No 10/25/2017 2:00 PM WARP BLEACHING VAT TENDER Galvan, Am y S, DISTRICT COURT JUSTICE * Because of a physical, mental, or emotional condition, do you have difficulty doing errands alone such as visiting a doctor's office or shopping? (15 years old or older) Answer Date of Assessment Author No 10/25/2017 2:00 PM WARP BLEACHING VAT TENDER Galvan, Am y S, DISTRICT COURT JUSTICE documented as of this encounter Mental Status * Because of a physical, mental, or emotional condition, do you have serious difficulty concentrating, remembering, or making decisions? (5 years old or older) Answer Entry Date Author No 10/25/2017 2:00 PM WARP BLEACHING VAT TENDER Galvan, Am y S, DISTRICT COURT JUSTICE documented in this encounter Miscellaneous Notes * Addendum Note - Svetlana Rodgers LPN - 05/10/2020 4:32 PM CDTAddended by: SVETLANA RODGERS on: 05/10/2020 04:32 PM Modules accepted: Orders * Telephone Encounter - Zoey Seaman LPN - 02/21/2020 3:45 PM CDT Patient notified as below and voiced understanding. He is scheduled to f/u with Dylan in May and will come fasting for labs at that time too. Referral made to Dietitian she will contact him to schedule. * Telephone Encounter - Zoey Seaman LPN - 02/21/2020 3:43 PM CDT ----- Message from TIFFANI Galeano sent at 02/21/2020 1:16 PM CDT ----- Patient CMP reveals mildly elevated blood sugar and normal electrolyte levels. Liver function testsare mildly elevated. They are not significantly elevated enough to warrant further significant testing. I recommend we recheck them in 3 months. If the patient is drinking alcohol I would advise against that especially due to his chronic pain medications and the risk of oversedation and . Patient's lipids reveal elevated triglycerides. This is directly related to hyper carbohydrate intake soI would recommend the patient decrease the amount of high carb foods like potatoes, breads, and pastas. I can start him on medications to decrease triglycerides but I would rather allow lifestyle changes time to decrease triglycerides. He just needs better dietary intake and if he has questions I would be happy to talk to him. I do recommend a visit with a dietitian. Patient's thyroid function tests are within normal limits. Patient's PSA levels are within normal limits. 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 Patient CBC is within normal limits. So ultimately we want todo lifestyle changes and possibly some visits with a dietitian in order to decrease his triglycerides. Recheck lipids and CMP in 3 months. We will also check up on his liver function test at that time. documented in this encounter Plan of Treatment Not on file documented as of this encounter Goals Goal Patient Goal Type Associated Problems Recent Progress Patient-Stated? Author Blood Pressure < 140/90 Blood Pressure 134/86(2022 2:25 PM CDT) No Leonard Jasso APRN documented as of this encounter Visit Diagnoses Diagnosis Hypertriglyceridemia- Primary Pure hyperglyceridemia documented in this encounter Care Teams Neon Sign Servicer Relationship Specialty Start Date End Date Leonard Jasso APRN 1454 [facility] [address] [place] [address] PCP - General Family Medicine 08/15/19 04/30/21 Lacey Perdue MD [address] [phone] Referring Physician Infectious Diseases 06/28/18 documented as of this encounter
--- OUTSIDE RECORDS SUMMARY | 2024-11-23 00:28 | XMS_ITS | Encounter Summary ---
Author Organization [employer] Address [address] [place] [address] Care Team Providers Care Rolling Machine Operator Name Role Phone Lacey Perdue MD Unavailable [phone] Leonard Jasso APRN Primary Care Provide r Encounter Details Date Type Department Care Team (Late st Contact Info) Description 08/16/2020 Orders Only [facility] [address] [place], [place] [address] Leonard Jasso, BODY TECHNICIAN/PAINTER [address] [place] [address] Social History Tobacco Use Types Packs/Day [...] of Assessment Author No 10/25/2017 2:00 PM SHANK CARRIER Deonna Galvan y S, MARZIPAN MAKER * Do you have difficulty dressing or bathing? (5 years old or older) Answer Date of Assessment Author No 10/25/2017 2:00 PM SHANK CARRIER Deonna Galvan y S, MARZIPAN MAKER * Because of a physical, mental, or emotional condition, do you have difficulty doing errands alone such as visiting a doctor's office or shopping? (15 years old or older) Answer Date of Assessment Author No 10/25/2017 2:00 PM SHANK CARRIER Deonna Galvan y S, MARZIPAN MAKER documented as of this encounter Mental Status * Because of a physical, mental, or emotional condition, do you have serious difficulty concentrating, remembering, or making decisions? (5 years old or older) Answer Entry Date Author No 10/25/2017 2:00 PM SHANK CARRIER Deonna Galvan y S, MARZIPAN MAKER documented in this encounter Plan of Treatment Not on file documented as of this encounter Goals Goal Patient Goal Type Associated Problems Recent Progress Patient-Stated? Author Blood Pressure < 140/90 Blood Pressure 134/86(2022 2:25 PM CDT) No Leonard Jasso APRN documented as of this encounter Visit Diagnoses Not on filedocumented in this encounter Care Teams Rolling Machine Operator Relationship Specialty Start Date End Date Leonard Jasso APRN 1454 [facility] [address] [place] [address] PCP - General Family Medicine 08/15/19 04/30/21 Lacey Perdue MD [address] [phone] Referring Physician Infectious Diseases 06/28/18 documented as of this encounter
--- OUTSIDE RECORDS SUMMARY | 2024-11-23 00:28 | XMS_ITS | Encounter Summary ---
Author Organization [employer] Address [address] [place] [address] Care Team Providers Care Cooling System Operator Name Role Phone Lacey Perdue MD Unavailable Leonard Jasso APRN Primary Care Provide r Patient, None Per Primary Care Provider Unavaila ble Michell Trevizo MD Primary Care Provider Patient, None Per Primary Care Provider Unavaila ble Jose Manuel Villegas MD Primary Care Provider [phone] Patient, None Per Primary Care Provider Unavaila ble Reason for Visit * Reason Onset Date Comments Medication Refill 12/11/2019 Encounter Details Date Type Department Care Team (Late st Contact Info) Description 12/11/2019 Refill [facility] [address] [place], [place] [id number] Maxine Howell, [facility] 1454 [facility] [address] [place], [place] [address] Social History Tobacco Use Types Packs/Day Years [...] of Assessment Author No 10/25/2017 2:00 PM MOTORCYCLE SALES ASSOCIATE Deonna Galvan y S, MICROFILMING DOCUMENT PREPARER * Are you blind or do you have serious difficulty seeing, even when wearing glasses? Answer Date of Assessment Author No 10/25/2017 2:00 PM MOTORCYCLE SALES ASSOCIATE Cole Am y S, MICROFILMING DOCUMENT PREPARER * Do you have serious difficulty walking or climbing stairs? (5 years old or older) Answer Date of Assessment Author No 10/25/2017 2:00 PM MOTORCYCLE SALES ASSOCIATE Cole Am y S, MICROFILMING DOCUMENT PREPARER * Do you have difficulty dressing or bathing? (5 years old or older) Answer Date of Assessment Author No 10/25/2017 2:00 PM JOHN Galvan Am y S, MICROFILMING DOCUMENT PREPARER * Because of a physical, mental, or emotional condition, do you have difficulty doing errands alone such as visiting a doctor's office or shopping? (15 years old or older) Answer Date of Assessment Author No 10/25/2017 2:00 PM JOHN Galvan Am y S, MICROFILMING DOCUMENT PREPARER documented as of this encounter Mental Status * Because of a physical, mental, or emotional condition, do you have serious difficulty concentrating, remembering, or making decisions? (5 years old or older) Answer Entry Date Author No 10/25/2017 2:00 PM Deonna Padilla, MICROFILMING DOCUMENT PREPARER documented in this encounter Miscellaneous Notes * Telephone Encounter - Maxine Howell CMA - 12/12/2019 4:54 PM MOTORCYCLE SALES ASSOCIATE Patient is just trying to make sure things are ready to go when he gets out of the hospital. He does not currently need them since he is in the hospital. Patient is willing to make an appointment to be seen once discharged so the medication can be refilled per protocol/policy. RCYCLE SALES ASSOCIATE * Telephone Encounter - Maxine Howell CMA - 12/12/2019 8:24 AM MOTORCYCLE SALES ASSOCIATE Patient called this morning wondering about the refill. I advised the patient that he will need to be seen in order to get this refilled. Patient states that he is currently in [place] for another surgery. Expected discharge on Wednesday. I advised the patient that once he knows for sure when he willbe released from the hospital to call and set up an appointment to be seen to get this refilled. Natalia aranda voiced understanding and stated that he will call to arrange an appointment when he knows whenhe will be discharged. RCYCLE SALES ASSOCIATE documented in this encounter Plan of Treatment Not on file documented as of this encounter Goals Goal Patient Goal Type Associated Problems Recent Progress Patient-Stated? Author Blood Pressure < 140/90 Blood Pressure 134/86(2022 2:25 PM CDT) No Leonard Jasso APRN documented as of this encounter Visit Diagnoses Not on filedocumented in this encounter Care Teams Cooling System Operator Relationship Specialty Start Date End Date Leonard Jasso APRN 1454 [facility] [address] [place] [address] PCP - General Family Medicine 08/15/19 04/30/21 Patient, None Per PCP - General 05/01/21 05/28/21 Michell Trevizo MD [address] [place] [address] PCP - General Internal Medicine 05/29/21 02/25/22 Patient, None Per PCP - General 02/26/22 05/11/22 Jose Manuel Villegas MD [address] [place] [address] PCP - General Showroom Salesperson 05/12/22 11/25/22 Patient, None Per PCP - General 03/04/23 Lacey Perdue MD [address] [phone] Referring Physician Infectious Diseases 06/28/18 documented as of this encounter
--- OUTSIDE RECORDS SUMMARY | 2024-11-23 00:28 | XMS_ITS | Encounter Summary ---
Author Organization [employer] Address [address] [place] [address] Care Team Providers Care Dialysis Tech Name Role Phone Lacey Perdue MD Unavailable Leonard Jasso APRN Primary Care Provide r Reason for Visit * Reason Onset Date Comments Medication Refill 01/15/2020 Encounter Details Date Type Department Care Team (Late st Contact Info) Description 01/15/2020 Refill [facility] [address] [place], [place] [phone] Maxine Howell, [facility] 1454 [facility] [address] [place], [place] [phone] Social History Tobacco Use Types Packs/Day Years [...] Author No 10/25/2017 2:00 PM Deonna Padilla, CASER SHOE PARTS * Do you have serious difficulty walking or climbing stairs? (5 years old or older) Answer Date of Assessment Author No 10/25/2017 2:00 PM Deonna Padilla, CASER SHOE PARTS * Do you have difficulty dressing or bathing? (5 years old or older) Answer Date of Assessment Author No 10/25/2017 2:00 PM Deonna Padilla, CASER SHOE PARTS * Because of a physical, mental, or emotional condition, do you have difficulty doing errands alone such as visiting a doctor's office or shopping? (15 years old or older) Answer Date of Assessment Author No 10/25/2017 2:00 PM Deonna Padilla, CASER SHOE PARTS documented as of this encounter Mental Status * Because of a physical, mental, or emotional condition, do you have serious difficulty concentrating, remembering, or making decisions? (5 years old or older) Answer Entry Date Author No 10/25/2017 2:00 PM Deonna Padilla, CASER SHOE PARTS documented in this encounter Plan of Treatment Not on file documented as of this encounter Goals Goal Patient Goal Type Associated Problems Recent Progress Patient-Stated? Author Blood Pressure < 140/90 Blood Pressure 134/86(2022 2:25 PM CDT) No Leonard Jasso APRN documented as of this encounter Visit Diagnoses Not on filedocumented in this encounter Care Teams Dialysis Tech Relationship Specialty Start Date End Date Leonard Jasso APRN 1454 [facility] [address] [place] [address] PCP - General Family Medicine 08/15/19 04/30/21 Lacey Perdue MD [address] [phone] Referring Physician Infectious Diseases 06/28/18 documented as of this encounter
--- OUTSIDE RECORDS SUMMARY | 2024-11-23 00:28 | XMS_ITS | Encounter Summary ---
Author Organization [employer] Address [address] [place] [address] Care Team Providers Care Experimental Display Builder Name Role Phone Lacey Perdue MD Unavailable [phone] Leonard Jasso APRN Primary Care Provide r Reason for Visit * Reason Comments Medication Refill Encounter Details Date Type Department Care Team (Late st Contact Info) Description 02/14/[address] [address] Leonard Jasso, ANGIE [address] [place] [address] Social History Tobacco Use Types Packs/Day [...] have Coronavirus / COVID-19? No / Unsure 02/19/2020 3:37 PM CDT documented as of this encounter Functional Status * Are you deaf or do you have serious difficulty hearing? Answer Date of Assessment Author No 10/25/2017 2:00 PM LINK KNITTING MACHINE OPERATOR Galvan, Am y S, LABORER BEAM HOUSE * Are you blind or do you have serious difficulty seeing, even when wearing glasses? Answer Date of Assessment Author No 10/25/2017 2:00 PM LINK KNITTING MACHINE OPERATOR Galvan, Am y S, LABORER BEAM HOUSE * Do you have serious difficulty walking or climbing stairs? (5 years old or older) Answer Date of Assessment Author No 10/25/2017 2:00 PM LINK KNITTING MACHINE OPERATOR Galvan, Am y S, LABORER BEAM HOUSE * Do you have difficulty dressing or bathing? (5 years old or older) Answer Date of Assessment Author No 10/25/2017 2:00 PM LINK KNITTING MACHINE OPERATOR Galvan, Am y S, LABORER BEAM HOUSE * Because of a physical, mental, or emotional condition, do you have difficulty doing errands alone such as visiting a doctor's office or shopping? (15 years old or older) Answer Date of Assessment Author No 10/25/2017 2:00 PM LINK KNITTING MACHINE OPERATOR Galvan, Am y S, LABORER BEAM HOUSE documented as of this encounter Mental Status * Because of a physical, mental, or emotional condition, do you have serious difficulty concentrating, remembering, or making decisions? (5 years old or older) Answer Entry Date Author No 10/25/2017 2:00 PM LINK KNITTING MACHINE OPERATOR Galvan, Am y S, LABORER BEAM HOUSE documented in this encounter Plan of Treatment Not on file documented as of this encounter Goals Goal Patient Goal Type Associated Problems Recent Progress Patient-Stated? Author Blood Pressure < 140/90 Blood Pressure 134/86(2022 2:25 PM CDT) No Leonard Jasso APRN documented as of this encounter Visit Diagnoses Not on filedocumented in this encounter Care Teams Experimental Display Builder Relationship Specialty Start Date End Date Leonard Jasso APRN 1454 [facility] [address] [place] [address] PCP - General Family Medicine 08/15/19 04/30/21 Lacey Perdue MD [address] [phone] Referring Physician Infectious Diseases 06/28/18 documented as of this encounter
--- OUTSIDE RECORDS SUMMARY | 2024-11-23 00:28 | XMS_ITS | Encounter Summary ---
Author Organization [employer] Address [address] [place] [address] Care Team Providers Care Kiln Repairer Name Role Phone Lacey Perdue MD Unavailable [phone] Leonard Jasso APRN Primary Care Provide r Reason for Visit * Reason Comments Results Patient is here to d janey lab results. Encounter Details Date Type Department Care Team (Late st Contact Info) Description 06/04/2020 3:30 PM CDT Office Visit [address] [phone] Leonard Jasso APRN [facility] [place] [address] Borderline diabetes (Primary Dx); Patellar tendonitis of right knee Social History Tobacco Use Types Packs/Day Years [...] have Coronavirus / COVID-19? No / Unsure 06/05/2020 10:08 PM CDT documented as of this encounter Last Filed Vital Signs Vital Sign Reading Time Taken Comments Blood Pressure 136/76 06/04/2020 3:27 PM CDT Pulse 77 06/04/2020 3:27 PM CDT Temperature 37.4 ??C (99.3 ??F) 06/04/2020 3:27 PM CD T Respiratory Rate - - Oxygen Saturation 96% 06/04/2020 3:27 PM CDT Inhaled Oxygen Concentration - - Weight 90.3 kg (199 lb) 06/04/2020 3:27 PM CDT Height 185.4 cm (6' 1 ) 06/04/2020 3:27 PM CDT Body Mass Index 26.25 06/04/2020 3:27 PM CDT documented in this encounter Functional Status * Are you deaf or do you have serious difficulty hearing? Answer Date of Assessment Author No 10/25/2017 2:00 PM Deonna Padilla, TUBULAR RIVETER * Are you blind or do you have serious difficulty seeing, even when wearing glasses? Answer Date of Assessment Author No 10/25/2017 2:00 PM Nessa Padilla, TUBULAR RIVETER * Do you have serious difficulty walking or climbing stairs? (5 years old or older) Answer Date of Assessment Author No 10/25/2017 2:00 PM Deonna Padilla, TUBULAR RIVETER * Do you have difficulty dressing or bathing? (5 years old or older) Answer Date of Assessment Author No 10/25/2017 2:00 PM Deonna Padilla, TUBULAR RIVETER * Because of a physical, mental, or emotional condition, do you have difficulty doing errands alone such as visiting a doctor's office or shopping? (15 years old or older) Answer Date of Assessment Author No 10/25/2017 2:00 PM Deonna Padilla TUBULAR RIVETER documented as of this encounter Mental Status * Because of a physical, mental, or emotional condition, do you have serious difficulty concentrating, remembering, or making decisions? (5 years old or older) Answer Entry Date Author No 10/25/2017 2:00 PM Deonna Padilla, TUBULAR RIVETER documented in this encounter Patient Instructions * Patient Instructions* Leonard aJsso APNP - 06/04/2020 3:30 PM CDT Follow up as needed or if right knee pain does not resolve in two weeks. I would then recommend an xray. Avoid concentrated sweets and try to achieve weight loss of 20 lbs. You are borderline diabetic andneed to avoid excessive intake of sugar and high carbohydrates also. documented in this encounter Progress Notes * Leonard Jasso APNP - 06/04/2020 3:30 PM CDT Chief Complaint Patient presents with ??? Results Patient is here to discuss lab results. [address] [address] Dept: [phone] Dept Loc: [phone] Loc Date: 06/04/2020 Name: Edilberto Hawley : 1955 PCP: TIFFANI Galeano Subjective: Patient ID: Edilberto Hawley is a 64 y.o. male. Pt is here to review recent A1C. Pt eats a lot of candy and drinks soda fequently. Recent A1C 6.2 Discussed with pt need to follow low carb diet, achieve weight loss, and avoid concentrated sweets. History provided by: Patient and spouse Knee Pain Injury mechanism: kneeled down to hard on right knee resulting in pain. The pain is present in the right knee. The quality of the pain is described as aching. The pain is moderate. The pain has been constant since onset. Pertinent negatives include no inability to bear weight, loss of motion, loss of sensation, muscle weakness, numbness or tingling. Associated symptoms comments: Pain, wears brace. . He reports no foreign bodies present. The symptoms are aggravated by movement, weight bearing and walking. He has tried orthotics for the symptoms. The treatment provided mild relief. Patient's medications, allergies, past medical, surgical, [...] intolerance. Genitourinary: Negative for difficulty urinating. Musculoskeletal: Right knee pain. Skin: Negative for rash. Allergic/Immunologic: Negative for environmental allergies and food allergies. Neurological: Negative for dizziness, tingling, seizures, syncope and numbness. Psychiatric/Behavioral: Negative for agitation and behavioral problems. Objective: Blood pressure 136/76, pulse 77, temperature 37.4 ??C (99.3 ??F), height 1.854 m (6' 1 ), weight 90.3 kg (199 lb), SpO2 96 %., BMI Body mass index is 26.25 kg/m??. Physical Exam Vitals signs and nursing note reviewed. Constitutional: General: He is not in acute distress. Appearance: Normal appearance. He is obese. He is not ill-appearing, toxic- appearing or diaphoretic. HENT: Head: Normocephalic and atraumatic. Eyes: Conjunctiva/sclera: Conjunctivae normal. Pupils: Pupils are equal, round, and reactive to light. Pulmonary: Effort: Pulmonary effort is normal. Musculoskeletal: Right knee: He exhibits normal range of motion, no swelling, no effusion, no deformity, no erythema, normal alignment, no LCL laxity, normal patellar mobility, no bony tenderness, normal meniscus andno MCL laxity. No tenderness found. No medial joint line, no lateral joint line, no MCL, no LCL andno patellar tendon tenderness noted. Skin: General: Skin is warm and dry. Neurological: Mental Status: He is alert and oriented to person, place, and time. Assessment/Plan: Problem List Items Addressed This Visit None Visit Diagnoses Borderline diabetes - Primary Patellar tendonitis of right knee Relevant Medications baclofen (LIORESAL) 10 MG tablet Follow up as needed or if right knee pain does not resolve in two weeks. I would then recommend an xray. Avoid concentrated sweets and try to achieve weight loss of 20 lbs. You are borderline diabetic andneed to avoid excessive intake of sugar and high carbohydrates also. Next Visit: Follow up in about 3 weeks (around 06/25/2020). Encounter of: 06/04/2020 Signed: TIFFANI Galeano 06/06/2020 10:06 AM documented in this encounter Plan of Treatment Not on file documented as of this encounter Goals Goal Patient Goal Type Associated Problems Recent Progress Patient-Stated? Author Blood Pressure < 140/90 Blood Pressure 134/86(2022 2:25 PM CDT) No Leonard Jasso APRN documented as of this encounter Visit Diagnoses Diagnosis Borderline diabetes- Primary Other abnormal glucose Patellar tendonitis of right knee documented in this encounter Care Teams Kiln Repairer Relationship Specialty Start Date End Date Leonard Jasso APRN 1454 [facility] [address] [place] [address] PCP - General Family Medicine 08/15/19 04/30/21 Lacey Perdue MD [address] [phone] Referring Physician Infectious Diseases 06/28/18 documented as of this encounter
--- OUTSIDE RECORDS SUMMARY | 2024-11-23 00:28 | XMS_ITS | Encounter Summary ---
Author Organization [facility] Address [address] [place] [address] Care Team Providers Care Seater Assembler Name Role Phone Lacey Perdue MD Unavailable [phone] Leonard Jasso APRN Primary Care Provide r Encounter Details Date Type Department Care Team (Latest Contact Info) Description 09/08/2020 Travel Social History Tobacco Use Types Packs/Day [...] have Coronavirus / COVID-19? No / Unsure 09/08/2020 5:07 PM CDT documented as of this encounter [...] No 10/25/2017 2:00 PM Deonna Padilla S, EXERCISE SCIENCE INTERNSHIP * Do you have difficulty dressing or bathing? (5 years old or older) Answer Date of Assessment Author No 10/25/2017 2:00 PM Deonna Padilla S, EXERCISE SCIENCE INTERNSHIP * Because of a physical, mental, or emotional condition, do you have difficulty doing errands alone such as visiting a doctor's office or shopping? (15 years old or older) Answer Date of Assessment Author No 10/25/2017 2:00 PM Deonna Padilla S, EXERCISE SCIENCE INTERNSHIP documented as of this encounter Mental Status * Because of a physical, mental, or emotional condition, do you have serious difficulty concentrating, remembering, or making decisions? (5 years old or older) Answer Entry Date Author No 10/25/2017 2:00 PM Deonna Padilla, EXERCISE SCIENCE INTERNSHIP documented in this encounter Plan of Treatment Not on file documented as of this encounter Goals Goal Patient Goal Type Associated Problems Recent Progress Patient-Stated? Author Blood Pressure < 140/90 Blood Pressure 134/86(2022 2:25 PM CDT) No Leonard Jasso APRN documented as of this encounter Visit Diagnoses Not on filedocumented in this encounter Care Teams Seater Assembler Relationship Specialty Start Date End Date Leonard Jasso APRN [address] [facility] [address] [place] [address] PCP - General Family Medicine 08/15/19 04/30/21 Lacey Perdue MD [address] [phone] Referring Physician Infectious Diseases 06/28/18 documented as of this encounter
--- OUTSIDE RECORDS SUMMARY | 2024-11-23 00:28 | XMS_ITS | Encounter Summary ---
Author Organization [facility] Address [address] [place] [address] Care Team Providers Care Oncology Physician Name Role Phone Lacey Perdue MD Unavailable [phone] Leonard Jasso APRN Primary Care Provide r Reason for Visit * Reason Onset Date Comments Medication Refill 02/14/2020 Encounter Details Date Type Department Care Team (Late st Contact Info) Description 02/14/2020 Refill [facility] [address] [place], [place] [id number] Maxine Howell, [facility] 1454 [facility] [address] [place], [place] [id number] Social History Tobacco Use Types Packs/Day Years [...] Author No 10/25/2017 2:00 PM Deonna Padilla, CIRCLE BEVELER * Do you have serious difficulty walking or climbing stairs? (5 years old or older) Answer Date of Assessment Author No 10/25/2017 2:00 PM Deonna Padilla, CIRCLE BEVELER * Do you have difficulty dressing or bathing? (5 years old or older) Answer Date of Assessment Author No 10/25/2017 2:00 PM Deonna Padilla, CIRCLE BEVELER * Because of a physical, mental, or emotional condition, do you have difficulty doing errands alone such as visiting a doctor's office or shopping? (15 years old or older) Answer Date of Assessment Author No 10/25/2017 2:00 PM Deonna Padilla, CIRCLE BEVELER documented as of this encounter Mental Status * Because of a physical, mental, or emotional condition, do you have serious difficulty concentrating, remembering, or making decisions? (5 years old or older) Answer Entry Date Author No 10/25/2017 2:00 PM Deonna Padilla, CIRCLE BEVELER documented in this encounter Plan of Treatment Not on file documented as of this encounter Goals Goal Patient Goal Type Associated Problems Recent Progress Patient-Stated? Author Blood Pressure < 140/90 Blood Pressure 134/86(2022 2:25 PM CDT) No Leonard Jasso APRN documented as of this encounter Visit Diagnoses Not on filedocumented in this encounter Care Teams Oncology Physician Relationship Specialty Start Date End Date Leonard Jasso APRN 1454 [facility] [address] [place] [address] PCP - General Family Medicine 08/15/19 04/30/21 Lacey Perdue MD [address] [phone] Referring Physician Infectious Diseases 06/28/18 documented as of this encounter
--- OUTSIDE RECORDS SUMMARY | 2024-11-23 00:28 | XMS_ITS | Encounter Summary ---
Author Organization [facility] Address [address] [place] [address] Care Team Providers Care Heat Regulator Name Role Phone Lacey Perdue MD Unavailable [phone] Leonard Jasso APRN Primary Care Provide r Reason for Visit * Reason Comments Cholelithiasis * Referral (Routine) - Closed Specialty Diagnoses / Procedures Referred By Contjessica t Referred To Contact General Surgery Diagnoses Calculus of gallbladder without cholecystitis without obstruction Leonard Jasso, PAPER DELIVERER [address] [place] [address] Phone: tel: fax: Siddhartha Loyd MD [address] [place] [address] [address] [place] [address] Phone: tel: fax: Referral ID Status Reason Start Date Expiration Date V isits Requested Visits Authorized [id number] Closed Specialty Services Required 05/16/2020 05/16/2021 1 1 Encounter Details Date Type Department Care Team (Latest Contact Info) Description 05/23/2020 3:00 PM CDT Initial consult [facility] [address] [place] [address] [address] [place] [address] Siddhartha Loyd MD [address] [place] [address] [address] [place] [address] Right upper quadrant abdominal pain (Primary Dx); Calculus of gallbladder without cholecystitis without obstruction; Gastroesophageal reflux disease, esophagitis presence not specified; Dysphasia Social History Tobacco Use Types Packs/Day Years [...] have Coronavirus / COVID-19? No / Unsure 05/23/2020 3:01 PM CDT documented as of this encounter Last Filed Vital Signs Vital Sign Reading Time Taken Comments Blood Pressure 131/80 05/23/2020 3:10 PM CDT Pulse 82 05/23/2020 3:10 PM CDT Temperature 37.1 ??C (98.8 ??F) 05/23/2020 3:10 PM CD T Respiratory Rate 16 05/23/2020 3:10 PM CDT Oxygen Saturation 96% 05/23/2020 3:10 PM CDT Inhaled Oxygen Concentration - - Weight 91.2 kg (201 lb) 05/23/2020 3:10 PM CDT Height 185.4 cm (6' 1 ) 05/23/2020 3:10 PM CDT Body Mass Index 26.52 05/23/2020 3:10 PM CDT documented in this encounter Functional [...] Author No 10/25/2017 2:00 PM Deonna Padilla, BLIND CLEANER * Do you have difficulty dressing or [...] * Patient Instructions* Prerna Vicente RN - 05/23/2020 3:00 PM CDT Images from the original note were not included. Upper GI Endoscopy: Before Your Procedure What [...] the scope. A doctor may do this test, which is also called a procedure, to look for ulcers, tumors, infection, or bleeding. It also can be used to look for signs of acid backing up into your esophagus. This is called gastroesophageal reflux disease, or GERD. The doctor can [...] a list of the medicines you take. What happens before the procedure? ??Preparing for the procedure ? Understand exactly what procedure is planned, along with the risks, benefits, and other options. ?? Tell your doctors ALL the medicines, vitamins, supplements, and herbal remedies you take. Some of these can increase the risk of bleeding or interact with anesthesia. ? If you take aspirin or some other blood thinner, ask your doctor if you should stop taking itbefore your procedure. Make sure that you understand exactly what your doctor wants you to do. These medicines increase the risk of bleeding. ? Your doctor will tell you which medicines to take or stop before your procedure. You may needto stop taking certain medicines a week or more before the procedure. So talk to your doctor as soon as you can. ? If you have an advance directive, let your doctor know. It may include a living will and a durable power of senior trial attorney for health care. Bring a copy to the hospital. If you don't have one, you may want to prepare one. It lets your doctor and loved ones know your health care wishes. Doctors advise that everyone prepare these papers before any type of surgery or procedure. Procedures can be stressful. This information will help you understand what you can expect. And it will help you safely prepare for your procedure. What happens on the day of [...] not apply lotions, perfumes, deodorants, or nail indonesian. ? Take off all jewelry and piercings. And take out contact lenses, if you wear them. ??At the hospital or surgery center ?? Bring [...] the medicine you were given wears off. Going home ?? Be sure you have someone to drive you home. Anesthesia and pain medicine make it unsafe for you to drive. ? You will be given more specific instructions about recovering from your procedure. They will cover things like diet, wound care, follow-up care, driving, and getting back to your normal routine. When should you call your doctor? ?? [...] option found under the Resources tab in [employer] [email or web address] (Chapter 11[employer]. If you do not have access to [employer], you can visit [email or web address] and select M[employer] from the menu on the left. Enter P790 in the search box to learn more about Upper GI Endoscopy: Before Your Procedure. Not on [employer]? Go to [email or web address] (Chapter 11)/[employer] and click the Sign Up Now link to request an activation code. Current as of: June 25, 2019Content Version: 12.4 ?? [id number] [employer]. Care instructions adapted under license by your healthcare professional. This care instruction is for use with your licensed healthcare professional. If you have questions about a medical condition or this instruction, always ask your healthcare professional. [employer] disclaims any warranty or liability for your use of this information. documented in this encounter Progress Notes * Siddhartha Loyd MD - 05/23/2020 3:00 PM CDT Surgical Services History and Physical Name: Edilberto Hawley Date of : 1955 Age: 64 y.o. Sex: male Patient's Primary Care Physician: TIFFANI Galeano Referred by: Leonard Jasso, * Chief Complaint: Chief Complaint Patient presents with ??? Cholelithiasis HPI: 64 y.o. male presents today with several month history of right-sided abdominal pain. He describes the pain primarily at night when he sleeping. It improves by rotating side to side. He does notappear to have any symptoms when he is upright and moving. He denies any nausea or vomiting. Deniesany food intolerances. He did have an ultrasound showing cholelithiasis. No sign of cholecystitis. The patient is about a year and a half out from a colonoscopy. He does have known GERD. It sounds like he has dysphasia symptoms at times. He is here for further exam and care. Past Medical History: No Known Allergies Past Medical History: Diagnosis Date ??? Arthritis ??? Back injury ??? Chronic back pain greater than 3 months duration ??? GERD (gastroesophageal reflux disease) ??? Migraines ??? Osteomyelitis of ankle or foot, acute, right ([facility]) 2018 Stepped on nail ??? Shoulder injury ??? Substance abuse ([facility]) cocaine, crystal meth nothing since [...] resource strain: Not on file ??? Food insecurity: Worry: Not on file Inability: Not on file ??? Transportation needs: Medical: Not on file Non-medical: Not on file Tobacco Use ??? Smoking status: Never Smoker ??? Smokeless tobacco: Never Used Substance and Sexual Activity ??? Alcohol use: No ??? Drug use: Yes Types: Hydrocodone, Morphine Comment: Arthritis pain ??? Sexual activity: Not on file Lifestyle ??? Physical activity: Days per week: Not on file Minutes per session: Not on file ??? Stress: Not on file Relationships ??? Social connections: Talks on phone: Not on file Gets together: Not on file Attends mu-ism service: Not on file Active member of club or organization: Not on file Attends meetings of clubs or organizations: Not on file Relationship status: Not on file ??? Intimate partner violence: Fear of current or ex partner: Not [...] of systems is unremarkable. Physical Examination: Vitals: 05/23/20 1510 BP: 131/80 Pulse: 82 Resp: 16 Temp: 37.1 ??C (98.8 ??F) SpO2: 96% Weight: 91.2 kg (201 lb) Height: 1.854 m (6' 1 ) Body mass index is 26.52 kg/m??. GENERAL: 64-year-old no apparent distress. CHEST: Lungs are clear to auscultation. HEART: Heart is regular in rhythm. ABDOMEN: Abdomen is soft and nontender. Minimal tenderness on deep palpation of the right upper andright upper/mid abdomen. No guarding or rebound. No masses/organomegaly. EXTREMITIES: Grossly intact. LAB AND RADIOLOGY: Ultrasound as noted above. Hospital Outpatient Visit on 05/10/2020 Component Date Value ??? WBC 05/10/2020 10.78 ??? RBC 05/10/2020 5.09 ??? HGB 05/10/2020 15.8 ??? Hematocrit 05/10/2020 46.5 ??? MCV 05/10/2020 91.4 ??? MCH 05/10/2020 31.0 ??? MCHC 05/10/2020 34.0 ??? Platelets 05/10/2020 205 ??? RDW-CV 05/10/2020 11.9 ??? MPV 05/10/2020 9.7 ??? Differential Type 05/10/2020 AUTOMATED DIFFERENTIAL ??? Neutrophil % 05/10/2020 70.4 ??? Lymphocytes % 05/10/2020 20.0 ??? Monocyte % 05/10/2020 7.5 ??? Eosinophils Relative % 05/10/2020 1.2 ??? Basophils % 05/10/2020 0.4 ??? Immature Granulocytes% 05/10/2020 0.5 ??? Neutrophils Absolute 05/10/2020 7.59 ??? Lymphocytes Absolute 05/10/2020 2.16 ??? Monos Absolute 05/10/2020 0.81* ??? Eosinophils Absolute Cou* 05/10/2020 0.13 ??? Basophils Absolute 05/10/2020 0.04 ??? Immature Granulocytes Ab* 05/10/2020 0.05 ??? Sodium 05/10/2020 140 ??? Potassium 05/10/2020 4.2 ??? Chloride 05/10/2020 104 ??? CO2 05/10/2020 27 ??? Glucose 05/10/2020 143* ??? BUN 05/10/2020 16 ??? Creatinine 05/10/2020 1.23 ??? Calcium 05/10/2020 9.3 ??? Total Protein 05/10/2020 7.9 ??? Albumin 05/10/2020 4.2 ??? Bilirubin Total 05/10/2020 0.7 ??? Alkaline Phosphatase 05/10/2020 91 ??? AST 05/10/2020 115* ??? ALT 05/10/2020 167* ??? Anion Gap 05/10/2020 9 ??? BUN/Creatinine Ratio 05/10/2020 13.0 ??? Osmolality Calculated 05/10/2020 283* ??? Globulin 05/10/2020 3.7* ??? A/G Ratio 05/10/2020 1.1* ??? EGFR Non-/Tristanian 05/10/2020 61 ??? EGFR /Tristanian 05/10/2020 70 ??? Hemoglobin A1C 05/10/2020 6.2* Impression and Plan: 64-year-old with some abdominal pain and cholelithiasis. At this point, he does not have a lot of symptoms consistent with symptomatic cholelithiasis. His pain symptoms are at night and are improved by rotating. He has no real pain during the day. He denies any food intolerances. Denies any nausea or vomiting. He does have known GERD as well as intermittent dysphasia. I thinkit would be prudent to proceed with upper endoscopy. I do not think he needs his gallbladder removed at this time. The risk and benefits of the EGD were explained in detail. The risk of anesthesia. The risk of injuring the bowel during manipulation of the scope or during any biopsy process. The patient understands, and wishes to proceed. We will get him scheduled for his EGD. The primary encounter diagnosis was Right upper quadrant abdominal pain. Diagnoses of Calculus of gallbladder without cholecystitis without obstruction, Gastroesophageal reflux disease, esophagitis presence not specified, and Dysphasia were also pertinent to this visit. Siddhartha Loyd MD, FACS documented in this encounter Plan of Treatment Not on file documented as of this encounter Goals Goal Patient Goal Type Associated Problems Recent Progress Patient-Stated? Author Blood Pressure < 140/90 Blood Pressure 134/86(2022 2:25 PM CDT) No Leonard Jasso APRN documented as of this encounter Visit Diagnoses Diagnosis Right upper quadrant abdominal pain- Primary Abdominal pain, right upper quadrant Calculus of gallbladder without cholecystitis without obstruction Calculus of gallbladder without mention of cholecystitis or obstruction Gastroesophageal reflux disease, esophagitis presence not specified Dysphasia Other speech disturbance documented in this encounter Care Teams Heat Regulator Relationship Specialty Start Date End Date Leonard Jasso APRN [address] [facility] [address] [place] [address] PCP - General Family Medicine 08/15/19 04/30/21 Lacey Perdue MD [address] [phone] Referring Physician Infectious Diseases 06/28/18 documented as of this encounter
--- OUTSIDE RECORDS SUMMARY | 2024-11-23 00:28 | XMS_ITS | Encounter Summary ---
Author Organization [facility] Address [address] [place] [address] Care Team Providers Care Technical Sme Name Role Phone Lacey Perdue MD Unavailable [phone] Leonard Jasso APRN Primary Care Provide r Encounter Details Date Type Department Care Team (Latest Contact Info) Description 06/04/2020 Travel Social History Tobacco Use Types Packs/Day [...] have Coronavirus / COVID-19? No / Unsure 06/04/2020 3:19 PM CDT documented as of this encounter [...] No 10/25/2017 2:00 PM Deonna Padilla S, REFRACTORY SPECIALIST * Do you have difficulty dressing or bathing? (5 years old or older) Answer Date of Assessment Author No 10/25/2017 2:00 PM Deonna Padilla S, REFRACTORY SPECIALIST * Because of a physical, mental, or emotional condition, do you have difficulty doing errands alone such as visiting a doctor's office or shopping? (15 years old or older) Answer Date of Assessment Author No 10/25/2017 2:00 PM Deonna Padilla S, REFRACTORY SPECIALIST documented as of this encounter Mental Status * Because of a physical, mental, or emotional condition, do you have serious difficulty concentrating, remembering, or making decisions? (5 years old or older) Answer Entry Date Author No 10/25/2017 2:00 PM Deonna Padilla, REFRACTORY SPECIALIST documented in this encounter Plan of Treatment Not on file documented as of this encounter Goals Goal Patient Goal Type Associated Problems Recent Progress Patient-Stated? Author Blood Pressure < 140/90 Blood Pressure 134/86(2022 2:25 PM CDT) No Leonard Jasso APRN documented as of this encounter Visit Diagnoses Not on filedocumented in this encounter Care Teams Technical Sme Relationship Specialty Start Date End Date Leonard Jasso APRN 1454 [facility] [address] [place] [address] PCP - General Family Medicine 08/15/19 04/30/21 Lacey Perdue MD [address] [phone] Referring Physician Infectious Diseases 06/28/18 documented as of this encounter
--- OUTSIDE RECORDS SUMMARY | 2024-11-23 00:28 | XMS_ITS | Encounter Summary ---
Author Organization [employer] [employer] Address [address] [place] [address] Care Team Providers Care Hook Loader Name Role Phone Lacey Perdue MD Unavailable [phone] Leonard Jasso APRN Primary Care Provide r Encounter Details Date Type Department Care Team (Late st Contact Info) Description 02/26/2020 Orders Only [facility] [address] [place] [address] Zoey Seaman, ASSEMBLER BRAZER 1454 [facility] [address] [place] [address] Chronic bilateral low back pain without sciatica Social History Tobacco Use Types Packs/Day Years [...] of Assessment Author No 10/25/2017 2:00 PM ASSISTANT PROFESSOR SURGICAL TECHNOLOGY Deonna Galvan, SHRIMP HEADER * Are you blind or do you have serious difficulty seeing, even when wearing glasses? Answer Date of Assessment Author No 10/25/2017 2:00 PM Deonna Padilla, SHRIMP HEADER * Do you have serious difficulty walking or climbing stairs? (5 years old or older) Answer Date of Assessment Author No 10/25/2017 2:00 PM Deonna Padilla S, SHRIMP HEADER * Do you have difficulty dressing or bathing? (5 years old or older) Answer Date of Assessment Author No 10/25/2017 2:00 PM Deonna Padilla, SHRIMP HEADER * Because of a physical, mental, or emotional condition, do you have difficulty doing errands alone such as visiting a doctor's office or shopping? (15 years old or older) Answer Date of Assessment Author No 10/25/2017 2:00 PM Deonna Padilla, SHRIMP HEADER documented as of this encounter Mental Status * Because of a physical, mental, or emotional condition, do you have serious difficulty concentrating, remembering, or making decisions? (5 years old or older) Answer Entry Date Author No 10/25/2017 2:00 PM Deonna Padilla, SHRIMP HEADER documented in this encounter Plan of Treatment Not on file documented as of this encounter Goals Goal Patient Goal Type Associated Problems Recent Progress Patient-Stated? Author Blood Pressure < 140/90 Blood Pressure 134/86(2022 2:25 PM CDT) No Leonard Jasso APRN documented as of this encounter Procedures Procedure Name Priority Date/Time Associated Diagnosis Comments URINE DRUG SCREEN Routine 02/20/2020 Chronic bilateral low back pain without sciatica documented in this encounter Results * Urine Drug Screen (02/20/2020) Urine specimen (specimen) 02/20/2020 Narrative [facility] - 02/26/2020 8:38 AM CDT See scanned image. us Leonard Jasso APRN URINE ORDERABLES Veronica l Result [facility] [address] [place], [place] documented in this encounter Visit Diagnoses Diagnosis Chronic bilateral low back pain without sciatica documented in this encounter Care Teams Hook Loader Relationship Specialty Start Date End Date Leonard Jasso APRN [address] [facility] [address] [place] [address] PCP - General Family Medicine 08/15/19 04/30/21 Lacey Perdue MD [address] [phone] Referring Physician Infectious Diseases 06/28/18 documented as of this encounter
--- OUTSIDE RECORDS SUMMARY | 2024-11-23 00:28 | XMS_ITS | Encounter Summary ---
Author Organization [facility] Address [address] [place] [address] Care Team Providers Care Travel Services Professional Name Role Phone Lacey Perdue MD Unavailable [phone] Leonard Jasso APRN Primary Care Provide r Reason for Visit * Reason Onset Date Comments Medication Refill 06/17/2020 Encounter Details Date Type Department Care Team (Late st Contact Info) Description 06/17/2020 Refill [facility] [address] [place], [place] [id number] Maxine Howell, [facility] 1454 [facility] [address] [place], [place] [address] Social History Tobacco Use Types Packs/Day Years [...] of Assessment Author No 10/25/2017 2:00 PM SERVICES MANAGER Deonna Galvan y S, PUMPMAN * Are you blind or do you have serious difficulty seeing, even when wearing glasses? Answer Date of Assessment Author No 10/25/2017 2:00 PM SERVICES MANAGER Deonna Galvan y S, PUMPMAN * Do you have serious difficulty walking or climbing stairs? (5 years old or older) Answer Date of Assessment Author No 10/25/2017 2:00 PM SERVICES MANAGER Deonna Galvan y S, PUMPMAN * Do you have difficulty dressing or bathing? (5 years old or older) Answer Date of Assessment Author No 10/25/2017 2:00 PM SERVICES MANAGER Cole Am y S, PUMPMAN * Because of a physical, mental, or emotional condition, do you have difficulty doing errands alone such as visiting a doctor's office or shopping? (15 years old or older) Answer Date of Assessment Author No 10/25/2017 2:00 PM SERVICES MANAGER Cole Am y S, PUMPMAN documented as of this encounter Mental Status * Because of a physical, mental, or emotional condition, do you have serious difficulty concentrating, remembering, or making decisions? (5 years old or older) Answer Entry Date Author No 10/25/2017 2:00 PM JOHN Galvan Am y S, PUMPMAN documented in this encounter Plan of Treatment Not on file documented as of this encounter Goals Goal Patient Goal Type Associated Problems Recent Progress Patient-Stated? Author Blood Pressure < 140/90 Blood Pressure 134/86(2022 2:25 PM CDT) No Leonard Jasso APRN documented as of this encounter Visit Diagnoses Not on filedocumented in this encounter Care Teams Travel Services Professional Relationship Specialty Start Date End Date Leonard Jasso APRN 1454 [facility] [address] [place] [address] PCP - General Family Medicine 08/15/19 04/30/21 Lacey Perdue MD [address] [phone] Referring Physician Infectious Diseases 06/28/18 documented as of this encounter
--- OUTSIDE RECORDS SUMMARY | 2024-11-23 00:28 | XMS_ITS | Encounter Summary ---
Author Organization [employer] Address [address] [place] [address] Care Team Providers Care Stave Jointer Name Role Phone Lacey Perdue MD Unavailable [phone] Leonard Jasso APRN Primary Care Provide r Reason for Visit * Reason Comments Medication Refill Encounter Details Date Type Department Care Team (Late st Contact Info) Description 09/09/[address] [address] Leonard Jasso, ANGIE [address] [place] [address] Social History Tobacco Use Types Packs/Day [...] COVID-19? No / Unsure 09/24/2020 2:49 PM PLAYBACK OPERATOR documented as of this encounter Functional Status * Are you deaf or do you have serious difficulty hearing? Answer Date of Assessment Author No 10/25/2017 2:00 PM PLAYBACK OPERATOR Galvan, Am y S, FINANCIAL REPORTING MANAGER * Are you blind or do you have serious difficulty seeing, even when wearing glasses? Answer Date of Assessment Author No 10/25/2017 2:00 PM PLAYBACK OPERATOR Galvan, Am y S, FINANCIAL REPORTING MANAGER * Do you have serious difficulty walking or climbing stairs? (5 years old or older) Answer Date of Assessment Author No 10/25/2017 2:00 PM PLAYBACK OPERATOR Galvan, Am y S, FINANCIAL REPORTING MANAGER * Do you have difficulty dressing or bathing? (5 years old or older) Answer Date of Assessment Author No 10/25/2017 2:00 PM PLAYBACK OPERATOR Galvan, Am y S, FINANCIAL REPORTING MANAGER * Because of a physical, mental, or emotional condition, do you have difficulty doing errands alone such as visiting a doctor's office or shopping? (15 years old or older) Answer Date of Assessment Author No 10/25/2017 2:00 PM PLAYBACK OPERATOR Galvan, Nessa my S, FINANCIAL REPORTING MANAGER documented as of this encounter Mental Status * Because of a physical, mental, or emotional condition, do you have serious difficulty concentrating, remembering, or making decisions? (5 years old or older) Answer Entry Date Author No 10/25/2017 2:00 PM PLAYBACK OPERATOR Galvan, Am y S, FINANCIAL REPORTING MANAGER documented in this encounter Plan of Treatment Not on file documented as of this encounter Goals Goal Patient Goal Type Associated Problems Recent Progress Patient-Stated? Author Blood Pressure < 140/90 Blood Pressure 134/86(2022 2:25 PM CDT) No Leonard Jasso APRN documented as of this encounter Visit Diagnoses Not on filedocumented in this encounter Care Teams Stave Jointer Relationship Specialty Start Date End Date Leonard Jasso APRN [address] [facility] [address] [place] [address] PCP - General Family Medicine 08/15/19 04/30/21 Lacey Perdeu MD [address] [address] Referring Physician Infectious Diseases 06/28/18 documented as of this encounter
--- OUTSIDE RECORDS SUMMARY | 2024-11-23 00:28 | XMS_ITS | Encounter Summary ---
Author Organization [employer] Address [address] [place] [address] Care Team Providers Care Hydro Pneumatic Tester Name Role Phone Lacey Perdue MD Unavailable [phone] Leonard Jasso APRN Primary Care Provide r Encounter Details Date Type Department Care Team (Latest Contact Info) Description 06/05/2020 Travel Social History Tobacco Use Types Packs/Day [...] No 10/25/2017 2:00 PM Deonna Padilla S, TURKISH RUBBER * Do you have difficulty dressing or bathing? (5 years old or older) Answer Date of Assessment Author No 10/25/2017 2:00 PM Deonna Padilla S, TURKISH RUBBER * Because of a physical, mental, or emotional condition, do you have difficulty doing errands alone such as visiting a doctor's office or shopping? (15 years old or older) Answer Date of Assessment Author No 10/25/2017 2:00 PM Deonna Padilla S, TURKISH RUBBER documented as of this encounter Mental Status * Because of a physical, mental, or emotional condition, do you have serious difficulty concentrating, remembering, or making decisions? (5 years old or older) Answer Entry Date Author No 10/25/2017 2:00 PM Deonna Padilla, TURKISH RUBBER documented in this encounter Plan of Treatment Not on file documented as of this encounter Goals Goal Patient Goal Type Associated Problems Recent Progress Patient-Stated? Author Blood Pressure < 140/90 Blood Pressure 134/86(2022 2:25 PM CDT) No Leonard Jasso APRN documented as of this encounter Visit Diagnoses Not on filedocumented in this encounter Care Teams Hydro Pneumatic Tester Relationship Specialty Start Date End Date Leonard Jasso APRN [address] [facility] [address] [place] [address] PCP - General Family Medicine 08/15/19 04/30/21 Lacey Perdue MD [address] [phone] Referring Physician Infectious Diseases 06/28/18 documented as of this encounter
--- OUTSIDE RECORDS SUMMARY | 2024-11-23 00:28 | XMS_ITS | Encounter Summary ---
Author Organization [employer] Address [address] [place] [address] Care Team Providers Care Trade Recruiter Name Role Phone Lacey Perdue MD Unavailable [phone] David Concepcion APRN Primary Care Provide r Reason for Referral * Diagnostic Radiology (Routine) - Closed Specialty Diagnoses / Procedures Referred By Celine almaguer Referred To Contact Radiology Diagnoses Elevated liver enzymes Procedures US Abdomen Ltd David Concepcion, GROUP UNDERWRITER [facility] [place] [address] Phone: tel: fax: Referral ID Status Reason Start Date Expiration Date Visits Re quested Visits Authorized [id number] Closed 05/13/2020 05/13/2021 1 1 Reason for Visit * Diagnostic Radiology (Routine) - Closed Specialty Diagnoses / Procedures Referred By Contjessica almaguer Referred To Contact Radiology Diagnoses Elevated liver enzymes Procedures US Abdomen Ltd David Concepcion, GROUP UNDERWRITER [address] [place] [address] Phone: tel: fax: Referral ID Status Reason Start Date Expiration Date Visits Re quested Visits Authorized [id number] Closed 05/13/2020 05/13/2021 1 1 Encounter Details Date Type Department Care Team (Late st Contact Info) Description 05/15/2020 9:43 AM CDT - 05/15/2020 11:59 PM CDT Hospital Encounter [facility] [address] [place] [address] David Concepcion, GROUP UNDERWRITER [address] [place] [address] Elevated liver enzymes Discharge Disposition: Home - [...] hours as needed for Pain. 120 tablet 05/15/2020 0 tamsulosin HCl (FLOMAX) 0.4 MG capsule [...] Concepcion APRN documented as of this encounter Procedures Procedure Name Priority Date/Time Associated Diagnosis Comments US ABDOMEN LTD Routine 05/15/2020 10:12 AM CDT Elevated liver enzymes documented in this encounter Results * US Abdomen Ltd (05/15/2020 10:12 AM CDT) Anatomical Region Laterality Modality Ultrasound 05/15/2020 2:27 PM CDT Impressions 05/15/2020 2:32 PM CDT 1. ??Cholelithiasis without evidence of cholecystitis. 2. ??The liver has normal echogenicity and contour. ??Mild hepatomegaly with liver length 16.5 cm. 3. ??No intrahepatic or extrahepatic ductal dilatation identified. THIS IS AN ELECTRONICALLY VERIFIED FINAL REPORT 05/15/2020 2:32 PM - Electronically signed by Saul Argueta M.D. AK: DANAY D: ??05/15/2020 2:30 PM T: ??05/15/2020 2:32 PM Report ID: [id number] Reading Location: ??[facility] Narrative 05/15/2020 2:32 PM CDT [address] [place] [address] Patient Name:EDILBERTO DURAND ?Accession Number: [id number] Patient ID Number:[id number] ?Approval Date: 05/15/2020 2:32 PM Date of :1955 ? Imaging Date: 05/15/2020 Gender:M ?Referring Physician:DAVID CONCEPCION Exam Description:US ABDOMEN LTD ??Stay Type: EXAM DESCRIPTION: ?? US ABDOMEN LTD REASON FOR STUDY: ?? episodes of intermittent burning RUQ pain past 6 mosDuration: 6 mo TECHNIQUE: ??Ultrasound of the right upper quadrant of the abdomen was performed with grayscale and color doppler. COMPARISON: ?? None FINDINGS: ??PANCREAS: ??Visualized portions of the pancreas are within normal limits. Portions of the pancreatic body and tail are obscured due to bowel gas. LIVER: ??Hepatomegaly, with length of 16.5 cm. ??Hepatopetal flow in the liver. ?? Normal echogenicity and contour of the liver. GALLBLADDER: ??Cholelithiasis. ??Normal gallbladder wall thickness at 2.2 mm. ?? No pericholecystic fluid identified. BILIARY: ??There is no intrahepatic or extrahepatic biliary ductal dilatation. Common bile duct measures ??0.4 cm in diameter. RIGHT KIDNEY: ??Normal size. Normal echogenicity. No solid mass or cyst. ??No hydronephrosis. Measures ??11.9 cm in length. OTHER: ??No other significant findings. Procedure Note Saul Argueta MD - 05/15/[address] [place] [address] Patient Name:EDILBERTO DURAND Accession Number: [id number] Patient ID Number:[id number] Approval Date: 05/15/2020 2:32 PM Date of :1955 Imaging Date: 05/15/2020 Gender:M Referring Physician:DAVID CONCEPCION Exam Description:US ABDOMEN LTD Stay Type: EXAM DESCRIPTION: US ABDOMEN LTD REASON FOR STUDY: episodes of intermittent burning RUQ pain past 6 mosDuration: 6 mo TECHNIQUE: Ultrasound of the right upper quadrant of the abdomen was performed with grayscale and color doppler. COMPARISON: None FINDINGS: PANCREAS: Visualized portions of the pancreas are withinnormal limits. Portions of the pancreatic body and tail are obscured due to bowelgas. LIVER: Hepatomegaly, with length of 16.5 cm. Hepatopetal flow in theliver. Normal echogenicity and contour of the liver. GALLBLADDER: Cholelithiasis. Normal gallbladder wall thickness at 2.2mm. No pericholecystic fluid identified. BILIARY: There is no intrahepatic or extrahepatic biliary ductaldilatation. Common bile duct measures 0.4 cm in diameter. RIGHT KIDNEY: Normal size. Normal echogenicity. No solid mass or cyst.No hydronephrosis. Measures 11.9 cm in length. OTHER: No other significant findings. IMPRESSION: 1. Cholelithiasis without evidence of cholecystitis. 2. The liver has normal echogenicity and contour. Mild hepatomegaly with liver length 16.5 cm. 3. No intrahepatic or extrahepatic ductal dilatation identified. THIS IS AN ELECTRONICALLY VERIFIED FINAL REPORT 05/15/2020 2:32 PM - Electronically signed by Saul Argueta M.D. AK: DANAY Report ID: [id number] Reading Location: [facility] us David Concepcion APRN IMG US ORDERABLES Fin al Result documented in this encounter Visit Diagnoses Diagnosis Elevated liver enzymes Nonspecific elevation of levels of transaminase or lactic acid dehydrogenase (LDH) documented in this encounter Care Teams Trade Recruiter Relationship Specialty Start Date End Date David Concepcion APRN [address] [facility] [address] [place] [address] PCP - General Family Medicine 08/15/19 04/30/21 Lacey Perdue MD [address] [phone] Referring Physician Infectious Diseases 06/28/18 documented as of this encounter
--- OUTSIDE RECORDS SUMMARY | 2024-11-23 00:28 | XMS_ITS | Encounter Summary ---
Author Organization [employer] Address [address] [place] [address] Care Team Providers Care Local Area Network Administrator Name Role Phone Lacey Perdue MD Unavailable [phone] Leonard Jasso APRN Primary Care Provide r Reason for Visit * Reason Comments Medication Refill Encounter Details Date Type Department Care Team (Late st Contact Info) Description 04/10/[address] [address] Leonard Jasso, ANGIE [address] [place] [address] Social History Tobacco Use Types Packs/Day [...] Author No 10/25/2017 2:00 PM Deonna Padilla, PHYSICIAN REPRESENTATIVE * Are you blind or do you have serious difficulty seeing, even when wearing glasses? Answer Date of Assessment Author No 10/25/2017 2:00 PM Deonna Padilla, PHYSICIAN REPRESENTATIVE * Do you have serious difficulty walking or climbing stairs? (5 years old or older) Answer Date of Assessment Author No 10/25/2017 2:00 PM Deonna Padilla, PHYSICIAN REPRESENTATIVE * Do you have difficulty dressing or bathing? (5 years old or older) Answer Date of Assessment Author No 10/25/2017 2:00 PM Deonna Padilla, PHYSICIAN REPRESENTATIVE * Because of a physical, mental, or emotional condition, do you have difficulty doing errands alone such as visiting a doctor's office or shopping? (15 years old or older) Answer Date of Assessment Author No 10/25/2017 2:00 PM Deonna Padilla, PHYSICIAN REPRESENTATIVE documented as of this encounter Mental Status [...] on filedocumented in this encounter Care Teams Local Area Network Administrator Relationship Specialty Start Date End Date Leonard Jasso APRN [address] [facility] [address] [place] [address] PCP - General Family Medicine 08/15/19 04/30/21 Lacey Perdue MD [address] [address] Referring Physician Infectious Diseases 06/28/18 documented as of this encounter
--- OUTSIDE RECORDS SUMMARY | 2024-11-23 00:28 | XMS_ITS | Encounter Summary ---
Author Organization [employer] Address [address] [place] [address] Care Team Providers Care Feed Mixer Name Role Phone Lacey Perdue MD Unavailable [phone] Leonard Jasso APRN Primary Care Provide r Reason for Visit * Reason Comments Arm Pain Encounter Details Date Type Department Care Team (Late st Contact Info) Description 06/05/2020 9:45 PM CDT - 06/05/2020 10:25 PM CDT Emergency [facility] [address] [place] [id number] Isaac Rosas PA-C [address] [place] [address] Cellulitis of arm, left (Primary Dx) Discharge Disposition: Home - Discharge [...] Sign Reading Time Taken Comments Blood Pressure 128/66 06/05/2020 10:20 PM CDT Pulse 82 06/05/2020 10:20 PM CDT Temperature 36.1 ??C (97 ??F) 06/05/2020 10:20 PM CDT Respiratory Rate 18 06/05/2020 10:20 PM CDT Oxygen Saturation 97% 06/05/2020 10:20 PM CDT Inhaled Oxygen Concentration - - Weight 90.3 kg (199 lb) 06/05/2020 9:50 PM CDT Height 180.3 cm (5' 11 ) 06/05/2020 9:50 PM CDT Body Mass Index 27.75 06/05/2020 9:50 PM CDT documented in this encounter Functional Status * Are you deaf or do you have serious difficulty hearing? Answer Date of Assessment Author No 10/25/2017 2:00 PM Deonna Padilla, LAND MANAGEMENT SUPERVISOR * Are you blind or do you have serious difficulty seeing, even when wearing glasses? Answer Date of Assessment Author No 10/25/2017 2:00 PM Deonna Padilla, LAND MANAGEMENT SUPERVISOR * Do you have serious difficulty walking or climbing stairs? (5 years old or older) Answer Date of Assessment Author No 10/25/2017 2:00 PM Deonna Padilla, LAND MANAGEMENT SUPERVISOR * Do you have difficulty dressing or bathing? (5 years old or older) Answer Date of Assessment Author No 10/25/2017 2:00 PM Deonna Padilla, LAND MANAGEMENT SUPERVISOR * Because of a physical, mental, or emotional condition, do you have difficulty doing errands alone such as visiting a doctor's office or shopping? (15 years old or older) Answer Date of Assessment Author No 10/25/2017 2:00 PM Deonna Padilla, LAND MANAGEMENT SUPERVISOR documented as of this encounter Mental Status * Because of a physical, mental, or emotional condition, do you have serious difficulty concentrating, remembering, or making decisions? (5 years old or older) Answer Entry Date Author No 10/25/2017 2:00 PM Deonna Padilla, LAND MANAGEMENT SUPERVISOR documented in this encounter Discharge Instructions * Discharge Instructions* Isaac Rosas PA-C - 06/05/2020 10:11 PM CDT Wash the area as usual with soap and water. Take your antibiotic until gone. Follow-up with your primary care provider on Wednesday. * Attachments The following attachments cannot be sent through Care Everywhere. * Cellulitis (Bahraini) documented in this encounter Medications at Time [...] 220 mg by mouth daily. clindamycin (CLEOCIN) 150 MG capsuleIndications :Cellulitis of arm, left Take 1 capsule by mouth 3 (three) times daily for 10 days. 30 capsule 06/05/2020 0 amitriptyline (ELAVIL) 75 MG tablet TAKE ONE TABLET DAILY. 30 tablet 5 04/10/2020 0 baclofen (LIORESAL) 10 MG tablet Take 1 tablet by mouth 3 (three) times daily as needed (muscle spasms.). 90 tablet 06/04/2020 1 Diclofenac Sodium 1 % CREA Place [...] 11/04/2018 1 documented as of this encounter ED Notes * Isaac oRsas PA-C - 06/05/2020 10:04 PM CDT History Chief Complaint Patient presents with ??? Arm Pain This is a 64-year-old male patient that presents with possible infection to his left forearm. He had what appeared to be a small abscess on the left forearm and tried to pick at this and get some pusout. This was done a couple of days ago. Since then, it has become more swollen and tender. He has no distal paresthesias. He has no weakness of his hand. He does not have any chills or fever. There is no injury. The history is provided by the patient. Past Medical History: Diagnosis Date ??? Arthritis ??? Back injury ??? Chronic back pain greater than 3 months duration ??? GERD (gastroesophageal reflux disease) ??? Migraines ??? Osteomyelitis of ankle or foot, acute, right ([facility]) 2018 Stepped on nail ??? Shoulder injury ??? Substance abuse ([facility]) cocaine, crystal meth nothing since 1996 ??? Wrist disorder R frzn wrist, 2 screws Past Surgical History: Procedure Laterality Date ??? COLONOSCOPY W/ POLYPECTOMY 12/07/2018 ??? ELBOW SURGERY Left metal plate from elbow to forearm ??? FRACTURE SURGERY Left no sx ??? INCISION AND DRAINAGE FOOT Right Infection right foot and ankle ??? JOINT REPLACEMENT Left Left hip replacement ??? ROTATOR CUFF REPAIR Left ??? SHOULDER SURGERY Right repair tendon ??? SPINE SURGERY 3 4 5 lumbar, pinched nerves Family History Problem Relation Age of Onset ??? Dementia Mother Social History Tobacco Use ??? Smoking status: Never Smoker ??? Smokeless tobacco: Never Used Substance Use Topics ??? Alcohol use: No ??? Drug use: Yes Types: Hydrocodone, Morphine Comment: Arthritis pain Review of Systems Constitutional: Negative for chills and fever. Musculoskeletal: Positive for arthralgias (left forearm). Neurological: Negative for weakness and numbness. Allergies / Sensitivities No Known Allergies Current Immunization Status per Nursing Immunization Status Tetanus up to date?: Unsure Immunization Hx Most Recent Immunizations Administered Date(s) Administered ??? Influenza (FLUAD) aIIV3 11/03/2019 ??? Pneumococcal Polysaccharide-23 (Pneumovax 23) PPSV23 01/21/2018 ??? Tdap 04/16/2017 Physical Exam BP 140/84 Pulse 70 Temp 37.1 ??C (98.8 ??F) (Temporal) Resp 18 Ht 1.803 m (5' 11 ) Wt 90.3 kg (199 lb) SpO2 97% BMI 27.75 kg/m?? GCS Assessment: Physical Exam Vitals signs and nursing note reviewed. Constitutional: General: He is not in acute distress. Appearance: Normal appearance. He is not ill-appearing. Skin: Comments: Left posterior forearm shows a small area that it previously been open abscess. There is no fluctuance. This is surrounded by a more firm area measuring approximately 6 cm in diameter that is tender and slightly erythematous. It is not yet warm. There are no other open lesions. Distal sens ations preserved in his fingertips and capillary refill is brisk. Neurological: Mental Status: He is alert. 06/05/2020 ED Lab Results - No data to display Imaging / Studies reviewed: ED Course Procedures Clinical Impressions as of Jun 05 2212 Cellulitis of arm, left Plan: New Prescriptions CLINDAMYCIN (CLEOCIN) 150 MG CAPSULE Take 1 capsule by mouth 3 (three) times daily for 10 days. Start Date: 06/05/2020 End Date: 06/15/2020 Order Dose: 150 mg Quantity: 30 capsule Refills: 0 Disposition: Discharge Follow-up Information TIFFANI Galeano In 2 days. Specialties: Family Medicine, Nurse Practitioner Why: follow up cellulitis Contact information: [address] [place] [address] [address] [facility] [phone] [facility] Number of Diagnoses or Management Options Cellulitis of arm, left: new and does not require workup Risk of Complications, Morbidity, and/or Mortality Presenting problems: low Diagnostic procedures: minimal Management options: low Patient Progress Patient progress: stable Patient Care Time (in minutes): 5 This visit occurred during a National Public Health Emergency due to the SARS-CoV-2 Pandemic. I performed this consultation in person. PPE I used included a cloth mask. Isaac Rosas PA-C 06/05/202211 Cosigned by Rickey Bailey DO at 06/10/2020 1:15 PM CDT * Courtney Yuan RN - 06/05/2020 9:49 PM CDT PAIN LEFT FOREARM SINCE Wednesday. SCRAPED AREA TO RELIEVE PAIN BUT DID NOT RELIEVE PAIN. documented in this encounter Plan of Treatment Not on file documented as of this encounter Goals Goal Patient Goal Type Associated Problems Recent Progress Patient-Stated? Author Blood Pressure < 140/90 Blood Pressure 134/86(2022 2:25 PM CDT) No Leonard Jasso APRN documented as of this encounter Visit Diagnoses Diagnosis Cellulitis of arm, left- Primary Cellulitis and abscess of upper arm and forearm documented in this encounter Administered Medications Inactive Administered Medications - up to 3 most recent administrations Medication Order MAR Action Action Date Dose Rate Site clindamycin (CLEOCIN) capsule 150 mg, Oral, ONCE, On Wed06/05/20 at 2230, For 1 dose Given 06/05/2020 10:11 PM CDT 150 mg documented in this encounter Active and Recently Administered Medications Times are shown in CDT. Scheduled Medication Order 06/03/2020 06/04/2020 06/05/2020 clindamycin (CLEOCIN) capsule (COMPLETED) 150 mg, Oral, ONCE, On Wed06/05/20 at 2230, For 1 dose 2210 (Given - Provid er: Courtney Yuan, RN) documented in this encounter Care Teams Feed Mixer Relationship Specialty Start Date End Date Leonard Jasso APRN [address] [facility] [address] [place] [address] PCP - General Family Medicine 08/15/19 04/30/21 Lacey ePrdue MD [address] [phone] Referring Physician Infectious Diseases 06/28/18 documented as of this encounter
--- OUTSIDE RECORDS SUMMARY | 2024-11-23 00:28 | XMS_ITS | Encounter Summary ---
Author Organization [employer] Address [address] [place] [address] Care Team Providers Care Home Appraiser Name Role Phone Lacey Perdue MD Unavailable [phone] Loenard Jasso APRN Primary Care Provide r Encounter Details Date Type Department Care Team (Latest Contact Info) Description 09/09/2020 Travel Social History Tobacco Use Types Packs/Day [...] No 10/25/2017 2:00 PM Deonna Padilla S, RIGHT OF WAY AGENT * Do you have difficulty dressing or bathing? (5 years old or older) Answer Date of Assessment Author No 10/25/2017 2:00 PM Deonna Padilla S, RIGHT OF WAY AGENT * Because of a physical, mental, or emotional condition, do you have difficulty doing errands alone such as visiting a doctor's office or shopping? (15 years old or older) Answer Date of Assessment Author No 10/25/2017 2:00 PM Deonna Padilla S, RIGHT OF WAY AGENT documented as of this encounter Mental Status * Because of a physical, mental, or emotional condition, do you have serious difficulty concentrating, remembering, or making decisions? (5 years old or older) Answer Entry Date Author No 10/25/2017 2:00 PM Deonna Padilla, RIGHT OF WAY AGENT documented in this encounter Plan of Treatment Not on file documented as of this encounter Goals Goal Patient Goal Type Associated Problems Recent Progress Patient-Stated? Author Blood Pressure < 140/90 Blood Pressure 134/86(2022 2:25 PM CDT) No Leonard Jasso APRN documented as of this encounter Visit Diagnoses Not on filedocumented in this encounter Care Teams Home Appraiser Relationship Specialty Start Date End Date Leonard Jasso APRN [address] [facility] [address] [place] [address] PCP - General Family Medicine 08/15/19 04/30/21 Lacey Perdue MD [address] [phone] Referring Physician Infectious Diseases 06/28/18 documented as of this encounter
--- OUTSIDE RECORDS SUMMARY | 2024-11-23 00:28 | XMS_ITS | Encounter Summary ---
Author Organization [employer] Address [address] [place] [address] Care Team Providers Care Silverware Buffing Machine Operator Name Role Phone Lacey Perdue MD Unavailable [phone] Leonard Jasso GRAVURE PRESS SET UP OPERATOR Primary Care Provide r Reason for Referral * Referral (Routine) - Closed Specialty Diagnoses / Procedures Referred By Celine almaguer Referred To Contact Urology Diagnoses Solar keratosis Leonard Jasso, GRAVURE PRESS SET UP OPERATOR [address] [place] [address] Phone: tel: fax: Isaac Orta MD [address] [place] [address] Phone: tel: fax: Referral ID Status Reason Start Date Expiration Date V isits Requested Visits Authorized [id number] Closed Specialty Services Required 01/22/2020 01/21/2021 1 1 Reason for Visit * Reason Comments Urinary Incontinence want referral to [place] [facility] Encounter Details Date Type Department Care Team (Late st Contact Info) Description 01/22/2020 3:45 PM CDT Office Visit [facility] [address] [place], [place] [id number] Leonard Jasso, GRAVURE PRESS SET UP OPERATOR [address] [place] [address] 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); BPH with obstruction/lower urinary tract symptoms; Solar keratosis; Chronic hand pain, left Social History Tobacco Use Types [...] Sign Reading Time Taken Comments Blood Pressure 130/78 01/22/2020 3:34 PM CDT Pulse 95 01/22/2020 3:34 PM CDT Temperature 36.7 ??C (98.1 ??F) 01/22/2020 3:34 PM CD T Respiratory Rate - - Oxygen Saturation 96% 01/22/2020 3:34 PM CDT Inhaled Oxygen Concentration - - Weight 90.4 kg (199 lb 3.2 oz) 01/22/2020 3:34 P M CDT Height 180.3 cm (5' 11 ) 01/22/2020 3:34 PM CDT Body Mass Index 27.78 01/22/2020 3:34 PM CDT documented in this encounter Functional [...] Author No 10/25/2017 2:00 PM Deonna Padilla, LICENSED CHEMICAL SPRAY TECHNICIAN * Because of a physical, mental, or emotional condition, do you have difficulty doing errands alone such as visiting a doctor's office or shopping? (15 years old or older) Answer Date of Assessment Author No 10/25/2017 2:00 PM Deonna Padilla, LICENSED CHEMICAL SPRAY TECHNICIAN documented as of this encounter Mental Status * Because of a physical, mental, or emotional condition, do you have serious difficulty concentrating, remembering, or making decisions? (5 years old or older) Answer Entry Date Author No 10/25/2017 2:00 PM Deonna Padilla, LICENSED CHEMICAL SPRAY TECHNICIAN documented in this encounter Patient Instructions * Patient Instructions* Leonard Jasso APNP - 01/22/2020 3:45 PM CDT Use efudex cream exactly as prescribed. Reviewed all possible side effects and you have chosen treatment. We will have you follow up with [facility] when treatment complete. Please keep appt with Urologist. We will complete referral to Orthopedics when you would like after Urology referral complete. Please just call office. documented in this encounter Progress Notes * Leonard Jasso APNP - 01/22/2020 3:45 PM CDT Chief Complaint Patient presents with ??? Urinary Incontinence want referral to [place] urologist [address] [address] Dept: [phone] Dept Loc: [phone] Loc Date: 01/22/2020 Name: Edilberto Hawley : 1955 PCP: TIFFANI Galeano Subjective: Patient ID: Edilberto Hawley is a 64 y.o. male. Pt complaining of urinary incontinence. Requesting referral to Urology. Specifically wants [facility]. Pt wound right lateral ankle is closed with granulation tissue measuring 2cm in length and 1.5cm wide. Would like referral to Orthopedics due to left hand pain: No radiographic evidence of acute fracture. On the lateral projection, there is dorsal subluxation of the metacarpal base, which is greater than is typically seen. There is polyarticular [id number] osteoarthritis, moderate to severe at the basal thumb joint. 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 Negative ulnar variance present. Small ossified loose bodies are present at the basal thumb joint. IMPRESSION: 1.Possible dorsal subluxation of a metacarpal base, seen only on the lateral projection. Correlation with physical examination and consideration of additional views is recommended. 2.No radiographic evidence of acute fracture. 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 4.Chronic scapholunate ligament tear. History provided by: Patient Patient's medications, allergies, past medical, surgical, social and family histories were reviewedand updated as appropriate. Review of Systems Constitutional: Negative for activity change, appetite change, chills, diaphoresis, fatigue and fever. HENT: Negative for ear pain, sinus pressure, sinus pain, sneezing and sore throat. Eyes: Negative for discharge and itching. Respiratory: Negative for cough and shortness of breath. Cardiovascular: Negative for chest pain, palpitations and leg swelling. Gastrointestinal: Negative for abdominal pain and vomiting. Genitourinary: Complains of urinary incontinence. History of nodular prostate. Musculoskeletal: Negative for arthralgias and back pain. Skin: Positive for wound. Negative for color change and rash. Pt wound right lateral ankle is closed with granulation tissue measuring 2cm in length and 1.5cm wide. Neurological: Negative for seizures and syncope. Objective: Blood pressure 130/78, pulse 95, temperature 36.7 ??C (98.1 ??F), height 1.803 m (5' 11 ), weight 90.4 kg (199 lb 3.2 oz), SpO2 96 %., BMI Body mass index is 27.78 kg/m??. Physical Exam Vitals signs and nursing [...] Breath sounds: Normal breath sounds. No wheezing. Genitourinary: Comments: No digital check of prostate today. Skin: Findings: Lesion (forehead, cheeks, forearms. Macular/rough/waxy appearing spots. No open areas that bleed and reheal. ) present. Neurological: Mental Status: He is alert and oriented to person, place, and time. Psychiatric: Mood and Affect: Mood normal. Behavior: Behavior normal. 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 Reviewed all possible side effects and you have chosen treatment. We will have you follow up with [facility] when treatment complete. Please keep appt with Urologist. We will complete referral to Orthopedics when you would like after Urology referral complete. Please just call office. Next Visit: Follow up in about 1 month (around 02/22/2020). Encounter of: 01/22/2020 Signed: TIFFANI Galeano 01/23/2020 10:52 AM documented in this encounter Miscellaneous Notes * Addendum Note - Svetlana Rodgers LPN - 01/22/2020 3:45 PM CDTAddended by: SVETLANA RODGERS on: 05/09/2020 12:25 PM Modules accepted: Orders documented in this encounter Plan of Treatment Not on file documented as of this encounter Goals Goal Patient Goal Type Associated Problems Recent Progress Patient-Stated? Author Blood Pressure < 140/90 Blood Pressure 134/86(2022 2:25 PM CDT) No Leonard Jasso APRN documented as of this encounter Procedures Procedure Name Priority Date/Time Associated Diagnosis Comments AMB REFERRAL TO UROLOGY Routine 03/20/2020 1:25 P M CDT Solar keratosis documented in this encounter Results * Referral to Urology (03/20/2020 1:25 PM CDT) Leonard Jasso APRN OUTPATIENT REFERRAL O RDERABLES Final Result [facility] [address] [facility] [address] [place] [address] documented in this encounter Visit Diagnoses Diagnosis 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- Primary Nodular prostate with urinary obstruction BPH with obstruction/lower urinary tract symptoms Hypertrophy of prostate with urinary obstruction and other lower urinary tract symptoms (LUTS) Solar keratosis Actinic keratosis Chronic hand pain, left documented in this encounter Care Teams Silverware Buffing Machine Operator Relationship Specialty Start Date End Date Leonard Jasso APRN [address] [facility] [address] [place] [address] PCP - General Family Medicine 08/15/19 04/30/21 Lacey Perdue MD [facility] [phone] Referring Physician Infectious Diseases 06/28/18 documented as of this encounter
--- OUTSIDE RECORDS SUMMARY | 2024-11-23 00:28 | XMS_ITS | Encounter Summary ---
Author Organization [employer] Address [address] [place] [address] Care Team Providers Care Glaucoma Specialist Name Role Phone Lacey Perdue MD Unavailable [phone] Leonard Jasso APRN Primary Care Provide r Reason for Visit * Reason Onset Date Comments Medication Refill 04/15/2020 Encounter Details Date Type Department Care Team (Late st Contact Info) Description 04/15/2020 Refill [facility] [address] [place], [place] [phone] Maxine Howell, [facility] [address] [facility] [address] [place], [place] [address] Social History Tobacco Use Types Packs/Day Years [...] Author No 10/25/2017 2:00 PM Deonna Padilla, ENVIRONMENTAL SERVICES ASSOCIATE * Do you have serious difficulty walking or climbing stairs? (5 years old or older) Answer Date of Assessment Author No 10/25/2017 2:00 PM Deonna Padilla, ENVIRONMENTAL SERVICES ASSOCIATE * Do you have difficulty dressing or bathing? (5 years old or older) Answer Date of Assessment Author No 10/25/2017 2:00 PM Deonna Padilla, ENVIRONMENTAL SERVICES ASSOCIATE * Because of a physical, mental, or emotional condition, do you have difficulty doing errands alone such as visiting a doctor's office or shopping? (15 years old or older) Answer Date of Assessment Author No 10/25/2017 2:00 PM Deonna Padilla, ENVIRONMENTAL SERVICES ASSOCIATE documented as of this encounter Mental Status * Because of a physical, mental, or emotional condition, do you have serious difficulty concentrating, remembering, or making decisions? (5 years old or older) Answer Entry Date Author No 10/25/2017 2:00 PM Deonna Padilla, ENVIRONMENTAL SERVICES ASSOCIATE documented in this encounter Plan of Treatment Not on file documented as of this encounter Goals Goal Patient Goal Type Associated Problems Recent Progress Patient-Stated? Author Blood Pressure < 140/90 Blood Pressure 134/86(2022 2:25 PM CDT) No Leonard Jasso APRN documented as of this encounter Visit Diagnoses Not on filedocumented in this encounter Care Teams Glaucoma Specialist Relationship Specialty Start Date End Date Leonard Jasso APRN [address] [facility] [address] [place] [address] PCP - General Family Medicine 08/15/19 04/30/21 Lacey Perdue MD [address] [phone] Referring Physician Infectious Diseases 06/28/18 documented as of this encounter
--- OUTSIDE RECORDS SUMMARY | 2024-11-23 00:28 | XMS_ITS | Encounter Summary ---
Author Organization [employer] Address [address] [place] [address] Care Team Providers Care Table Operator Name Role Phone Lacey Perdue MD Unavailable [phone] Leonard Jasso APRN Primary Care Provide r Encounter Details Date Type Department Care Team (Latest Contact Info) Description 05/16/2020 Travel Social History Tobacco Use Types Packs/Day [...] have Coronavirus / COVID-19? No / Unsure 05/16/2020 8:47 AM CDT documented as of this encounter [...] No 10/25/2017 2:00 PM Deonna Padilla S, WEIGHT TRAINER * Do you have difficulty dressing or bathing? (5 years old or older) Answer Date of Assessment Author No 10/25/2017 2:00 PM Deonna Padilla S, WEIGHT TRAINER * Because of a physical, mental, or emotional condition, do you have difficulty doing errands alone such as visiting a doctor's office or shopping? (15 years old or older) Answer Date of Assessment Author No 10/25/2017 2:00 PM Deonna Padilla S, WEIGHT TRAINER documented as of this encounter Mental Status * Because of a physical, mental, or emotional condition, do you have serious difficulty concentrating, remembering, or making decisions? (5 years old or older) Answer Entry Date Author No 10/25/2017 2:00 PM Deonna Padilla, WEIGHT TRAINER documented in this encounter Plan of Treatment Not on file documented as of this encounter Goals Goal Patient Goal Type Associated Problems Recent Progress Patient-Stated? Author Blood Pressure < 140/90 Blood Pressure 134/86(2022 2:25 PM CDT) No Leonard Jasso APRN documented as of this encounter Visit Diagnoses Not on filedocumented in this encounter Care Teams Table Operator Relationship Specialty Start Date End Date Leonard Jasso APRN [address] [facility] [address] [place] [address] PCP - General Family Medicine 08/15/19 04/30/21 Lacey Perdue MD [address] [phone] Referring Physician Infectious Diseases 06/28/18 documented as of this encounter
--- OUTSIDE RECORDS SUMMARY | 2024-11-23 00:28 | XMS_ITS | Encounter Summary ---
Author Organization [employer] Address [address] [place] [address] Care Team Providers Care Lithographic Etcher Name Role Phone Lacey Perdue MD Unavailable Leonard Jasso APRN Primary Care Provide r Reason for Visit * Reason Onset Date Comments Medication Refill 03/15/2020 Encounter Details Date Type Department Care Team (Late st Contact Info) Description 03/15/2020 Refill [facility] [address] [place], [place] [phone] Maxine Howell, [facility] [address] [facility] [address] [place], [place] [phone] Social History Tobacco Use Types Packs/Day Years [...] of Assessment Author No 10/25/2017 2:00 PM SHIP CEILER Deonna Galvan y S, PROTOTYPE SEWER * Are you blind or do you have serious difficulty seeing, even when wearing glasses? Answer Date of Assessment Author No 10/25/2017 2:00 PM SHIP CEILER Deonna Galvan y S, PROTOTYPE SEWER * Do you have serious difficulty walking or climbing stairs? (5 years old or older) Answer Date of Assessment Author No 10/25/2017 2:00 PM SHIP CEILER Deonna Galvan y S, PROTOTYPE SEWER * Do you have difficulty dressing or bathing? (5 years old or older) Answer Date of Assessment Author No 10/25/2017 2:00 PM SHIP CEILER Cole Am y S, PROTOTYPE SEWER * Because of a physical, mental, or emotional condition, do you have difficulty doing errands alone such as visiting a doctor's office or shopping? (15 years old or older) Answer Date of Assessment Author No 10/25/2017 2:00 PM SHIP CEILER Cole Am y S, PROTOTYPE SEWER documented as of this encounter Mental Status * Because of a physical, mental, or emotional condition, do you have serious difficulty concentrating, remembering, or making decisions? (5 years old or older) Answer Entry Date Author No 10/25/2017 2:00 PM JOHN Galvan Am y S, PROTOTYPE SEWER documented in this encounter Plan of Treatment Not on file documented as of this encounter Goals Goal Patient Goal Type Associated Problems Recent Progress Patient-Stated? Author Blood Pressure < 140/90 Blood Pressure 134/86(2022 2:25 PM CDT) No Leonard Jasso APRN documented as of this encounter Visit Diagnoses Not on filedocumented in this encounter Care Teams Lithographic Etcher Relationship Specialty Start Date End Date Leonard Jasso APRN [address] [facility] [address] [place] [address] PCP - General Family Medicine 08/15/19 04/30/21 Lacey Perdue MD [address] [phone] Referring Physician Infectious Diseases 06/28/18 documented as of this encounter
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
--- OUTSIDE RECORDS SUMMARY | 2024-11-23 00:28 | XMS_ITS | Encounter Summary ---
Author Organization [employer] Address [address] [place] [address] Care Team Providers Care Hand Cloth Cutter Name Role Phone Lacey Perdue MD Unavailable [phone] Leonard Jasso APRN Primary Care Provide r Encounter Details Date Type Department Care Team (Latest Contact Info) Description 05/23/2020 Travel Social History Tobacco Use Types Packs/Day [...] No 10/25/2017 2:00 PM Deonna Padilla S, [employer] * Do you have difficulty dressing or bathing? (5 years old or older) Answer Date of Assessment Author No 10/25/2017 2:00 PM Deonna Padilla S, [employer] * Because of a physical, mental, or emotional condition, do you have difficulty doing errands alone such as visiting a doctor's office or shopping? (15 years old or older) Answer Date of Assessment Author No 10/25/2017 2:00 PM Deonna Padilla S, PORT [employer] documented as of this encounter Mental Status * Because of a physical, mental, or emotional condition, do you have serious difficulty concentrating, remembering, or making decisions? (5 years old or older) Answer Entry Date Author No 10/25/2017 2:00 PM Deonna Padilla, PORT [employer] documented in this encounter Plan of Treatment Not on file documented as of this encounter Goals Goal Patient Goal Type Associated Problems Recent Progress Patient-Stated? Author Blood Pressure < 140/90 Blood Pressure 134/86(2022 2:25 PM CDT) No Leonard Jasso APRN documented as of this encounter Visit Diagnoses Not on filedocumented in this encounter Care Teams Hand Cloth Cutter Relationship Specialty Start Date End Date Leonard Jasso APRN [address] [facility] [address] [place] [address] PCP - General Family Medicine 08/15/19 04/30/21 Lacey Perdue MD [address] [phone] Referring Physician Infectious Diseases 06/28/18 documented as of this encounter
--- OUTSIDE RECORDS SUMMARY | 2024-11-23 00:28 | XMS_ITS | Encounter Summary ---
Author Organization [employer] Address [address] [place] [address] Care Team Providers Care Solar Mechanical Engineer Name Role Phone Lacey Perdue MD Unavailable Leonard Jasso APRN Primary Care Provide r Encounter Details Date Type Department Care Team (Latest Contact Info) Description 02/20/2020 9:05 AM CDT - 02/20/2020 11:59 PM CDT Hospital Encounter [facility] [address] [place] [address] Wound of right lower extremity, subsequent encounter; Screening for cardiovascular condition; Screening for thyroid disorder; Benign prostatic hyperplasia with incomplete bladder emptying Discharge Disposition: Home - Discharge to Home [...] Author No 10/25/2017 2:00 PM Deonna Padilla, ELECTROMECHANICAL ENGINEER * Are you blind or do you have serious difficulty seeing, even when wearing glasses? Answer Date of Assessment Author No 10/25/2017 2:00 PM Deonna Padilla, ELECTROMECHANICAL ENGINEER * Do you have serious difficulty walking or climbing stairs? (5 years old or older) Answer Date of Assessment Author No 10/25/2017 2:00 PM Deonna Padilla, ELECTROMECHANICAL ENGINEER * Do you have difficulty dressing or bathing? (5 years old or older) Answer Date of Assessment Author No 10/25/2017 2:00 PM Deonna Padilla, ELECTROMECHANICAL ENGINEER * Because of a physical, mental, or emotional condition, do you have difficulty doing errands alone such as visiting a doctor's office or shopping? (15 years old or older) Answer Date of Assessment Author No 10/25/2017 2:00 PM Deonna Padilla, ELECTROMECHANICAL ENGINEER documented as of this encounter Mental [...] mouth daily. amitriptyline (ELAVIL) 75 MG tablet Take 1 tablet by mouth nightly. 30 tablet 5 08/23/2019 0 baclofen (LIORESAL) 10 MG tablet Take 1 tablet by mouth nightly. 30 tablet 5 02/14/2020 0 Diclofenac Sodium 1 % CREA Place onto the skin nightly as needed. 1 DULoxetine (CYMBALTA) 60 MG capsule Take 1 capsule by mouth daily. 30 capsule 5 09/25/2019 1 finasteride (PROSCAR) 5 MG tablet Take 5 mg by mouth daily. 1 fluorouracil (EFUDEX) 5 % cream Apply topically 2 (two) times daily. 40 g 1 01/22/2020 0 ibuprofen (ADVIL,MOTRIN) 800 MG tablet Take 1 tablet by mouth every 8 (eight) hours as needed for Pain. 100 tablet 08/02/2018 0 NARCAN 4 MG/0.1ML LIQD nasal liquid USE DIRECTED. 2 each 1 01/15/2020 2 oxyCODONE-acetamin ophen (PERCOCET) 10-325 MG per tablet Take 1 tablet by mouth every 6 (six) hours as needed for Pain. 120 tablet 02/14/2020 0 ranitidine (ZANTAC) 150 MG tablet Take 1 tablet by mouth 2 (two) times daily. 60 tablet 5 08/23/2019 0 tamsulosin HCl (FLOMAX) 0.4 MG capsule [...] Name Priority Date/Time Associated Diagnosis Comments CBC AND DIFFERENTIAL Routine 02/20/2020 9:05 AM CDT Wound of right lower extremity, subsequent encounter Screening for cardiovascular condition Screening for thyroid disorder TSH Routine 02/20/2020 9:05 AM CDT Screening for thyroid disorder T4, FREE Routine 02/20/2020 9:05 AM CDT Screening for thyroid disorder PSA Routine 02/20/2020 9:05 AM CDT Benign prostatic hyperplasia with incomplete bladder emptying LIPID PANEL Routine 02/20/2020 9:05 AM CDT Screening for cardiovascular condition COMPREHENSIVE METABOLIC PANEL Routine 02/20/2020 9:05 AM CDT Screening for cardiovascular condition Screening for thyroid disorder documented in this encounter Results * PSA (02/20/2020 9:05 AM CDT) PSA 0.41 0.00 - 4.00 ng/mL 02/20/2020 2:43 PM CDT [facility] Serum specimen (specimen) 02/20/2020 9:05 AM CDT 02/20/2020 1:57 PM CDT us Leonard Jasso APRN LAB BLOOD ORDERABLES Final Result [facility] [address] [facility] [address] [place] [address] * T4, free (02/20/2020 9:05 AM CDT) Free T4 0.92 0.76 - 1.46 ng/dL 02/20/2020 2:43 PM T [facility] Serum specimen (specimen) 02/20/2020 9:05 AM CDT 02/20/2020 1:57 PM CDT us Leonard Jasso APRN LAB BLOOD ORDERABLES Final Result [facility] [address] [facility] [address] [place] [address] * TSH (02/20/2020 9:05 AM CDT) TSH 1.99 0.36 - 3.74 m[IU]/L 02/20/2020 2:43 PM CDT [facility] Serum specimen (specimen) BLOOD SPECIMEN / Unknown 02/20/2020 9:05 AM CDT 02/20/2020 1:57 PM CDT us Leonard Jasso APRN LAB BLOOD ORDERABLES Final Result [facility] [address] [facility] [address] [place] [address] * (ABNORMAL) Lipid panel (02/20/2020 9:05 AM CDT) Cholesterol 191 0 - 200 mg/dL 02/20/2020 2:43 PM [facility] Triglycerides 246(H) 30 - 150 mg/dL 02/20/2020 2:43 PM [facility] HDL Cholesterol 37(L) 40 - 60 mg/dL 02/20/2020 2:43 PM [facility] LDL, Calculated 105 0 - 130 mg/dL 02/20/2020 2:43 PM [facility] Cholesterol/HDL Ratio 5.2(H) 4 - 5 02/20/2020 2:43 PM [facility] Serum specimen (specimen) 02/20/2020 9:05 AM CDT 02/20/2020 1:57 PM CDT us Leonard Jasso APRN LAB BLOOD ORDERABLES Final Result [facility] [address] [facility] [address] [place] [address] * (ABNORMAL) Comprehensive metabolic panel (02/20/2020 9:05 AM CDT) Sodium 143 136 - 145 mmol/L 02/20/2020 2:43 PM [facility] Potassium 4.8 3.5 - 5.1 mmol/L 02/20/2020 2:43 PM [facility] Chloride 105 98 - 107 mmol/L 02/20/2020 2:43 PM [facility] CO2 29 21 - 32 mmol/L 02/20/2020 2:43 PM [facility] Glucose 152(H) 74 - 106 mg/dL 02/20/2020 2:43 PM [facility] BUN 15 7.0 - 18.0 mg/dL 02/20/2020 2:43 PM [facility] Creatinine 1.05 0.70 - 1.30 mg/dL 02/20/2020 2:43 PM [facility] Calcium 9.4 8.5 - 10.1 mg/dL 02/20/2020 2:43 PM [facility] Total Protein 8.2 6.4 - 8.2 g/dL 02/20/2020 2:43 PM [facility] Albumin 4.2 3.4 - 5.0 g/dL 02/20/2020 2:43 PM [facility] Bilirubin Total 0.5 0.2 - 1.0 mg/dL 02/20/2020 2:43 PM [facility] Alkaline Phosphatase 94 56 - 119 U/L 02/20/2020 2:43 PM [facility] AST 49(H) 15 - 37 U/L 02/20/2020 2:43 PM [facility] ALT 73(H) 16 - 63 U/L 02/20/2020 2:43 PM [facility] Anion Gap 9 8 - 16 mmol/L 02/20/2020 2:43 PM [facility] BUN/Creatinine Ratio 14.3 02/20/2020 2:43 PM [facility] Osmolality Calculated 289 285 - 295 mosm/kg 02/20/2020 2:43 PM [facility] Globulin 4.0(H) 2.3 - 3.4 g/dL 02/20/2020 2:43 PM [facility] A/G Ratio 1.1(L) 1.2 - 2.4 02/20/2020 2:43 PM [facility] Creatinine Based eGFR 74 mL/min/[1. 73_m2] 02/20/2020 2:43 PM [facility] Comment:GFR 60-90 Mild decre ased GFR. EGFR /Finnish 85 mL/min/[1. 73_m2] 02/20/2020 2:43 PM [facility] Comment:GFR 60-90 Mild decre ased GFR. Serum specimen (specimen) 02/20/2020 9:05 AM CDT 02/20/2020 1:57 PM CDT us Leonard Jasso SERVICE PARTS DRIVER LAB BLOOD ORDERABLES Final Result [facility] [address] [facility] [address] [place] [address] * CBC and differential (02/20/2020 9:05 AM CDT) WBC 6.91 4.00 - 11.00 10*3/uL 02/20/2020 2:08 PM [facility] RBC 5.58 4.50 - 6.50 10*6/uL 02/20/2020 2:08 PM [facility] HGB 17.0 13.8 - 18.0 g/dL 02/20/2020 2:08 PM [facility] HCT 50.8 40.0 - 54.0 % 02/20/2020 2:08 PM [facility] MCV 91.0 76 - 99 fL 02/20/2020 2:08 PM [facility] MCH 30.5 27.0 - 32.0 pg 02/20/2020 2:08 PM [facility] MCHC 33.5 30.0 - 35.0 g/dL 02/20/2020 2:08 PM [facility] Platelets 216 135 - 470 10*3/uL 02/20/2020 2:08 PM [facility] RDW-CV 12.4 11.0 - 17.0 % 02/20/2020 2:08 PM [facility] MPV 10.3 8.0 - 12.5 fL 02/20/2020 2:08 PM [facility] Differential Type AUTOMATED DIFFERENTIAL 02/20/2020 2:08 PM [facility] Neutrophil % 61.6 45.0 - 75.0 % 02/20/2020 2:08 PM [facility] Lymphocytes % 26.9 20.0 - 45.0 % 02/20/2020 2:08 PM [facility] Monocyte % 8.8 0.0 - 10.0 % 02/20/2020 2:08 PM [facility] Eosinophils Relative % 2.0 0.0 - 5.0 % 02/20/2020 2:08 PM [facility] Basophils % 0.4 0.0 - 2.0 % 02/20/2020 2:08 PM [facility] Immature Granulocytes% 0.3 0.0 - 1.6 % 02/20/2020 2:08 PM [facility] Neutrophils Absolute 4.25 2.00 - 7.90 10*3/uL 02/20/2020 2:08 PM [facility] Lymphocytes Absolute 1.86 1.00 - 4.00 10*3/uL 02/20/2020 2:08 PM [facility] Monos Absolute 0.61 0.00 - 0.80 10*3/uL 02/20/2020 2:08 PM [facility] Eosinophils Absolute Count 0.14 0.00 - 0.40 10*3/uL 02/20/2020 2:08 PM [facility] Basophils Absolute 0.03 0.00 - 0.10 10*3/uL 02/20/2020 2:08 PM [facility] Immature Granulocytes Absolute 0.02 0.0 - 0.20 10*3/uL 02/20/2020 2:08 PM [facility] Serum specimen (specimen) 02/20/2020 9:05 AM CDT 02/20/2020 1:57 PM [facility] Leonard Jasso SERVICE PARTS DRIVER LAB BLOOD ORDERABLES Final Result [facility] [address] [facility] [address] [place] [address] documented in this encounter Visit Diagnoses Diagnosis Wound of right lower extremity, subsequent encounter Screening for cardiovascular condition Screening for other and unspecified cardiovascular conditions Screening for thyroid disorder Benign prostatic hyperplasia with incomplete bladder emptying documented in this encounter Care Teams Solar Mechanical Engineer Relationship Specialty Start Date End Date Leonard Jasso APRN [address] [facility] [address] [place] [address] PCP - General Family Medicine 08/15/19 04/30/21 Lacey Perdue MD [address] [address] Referring Physician Infectious Diseases 06/28/18 documented as of this encounter
--- OUTSIDE RECORDS SUMMARY | 2024-11-23 00:28 | XMS_ITS | Encounter Summary ---
Author Organization [employer] Address [address] [place] [address] Care Team Providers Care Customer Account Executive Name Role Phone Lacey Perdue MD Unavailable [phone] Leonard Jasso AVIATION TACTICAL READINESS OFFICER Primary Care Provide r Encounter Details Date Type Department Care Team (Late st Contact Info) Description 02/14/[address] [facility] [address] [place], [place] [address] Leonard Jasso, AVIATION TACTICAL READINESS OFFICER [address] [place] [address] Social History Tobacco Use Types [...] of Assessment Author No 10/25/2017 2:00 PM HEMATOLOGY ONCOLOGY CONSULTANT Galvan, Am y S, BORDER PATROL OFFICER * Are you blind or do you have serious difficulty seeing, even when wearing glasses? Answer Date of Assessment Author No 10/25/2017 2:00 PM JOHN Galvan Am y S, BORDER PATROL OFFICER * Do you have serious difficulty walking or climbing stairs? (5 years old or older) Answer Date of Assessment Author No 10/25/2017 2:00 PM JOHN Galvan Am y S, BORDER PATROL OFFICER * Do you have difficulty dressing or bathing? (5 years old or older) Answer Date of Assessment Author No 10/25/2017 2:00 PM HEMATOLOGY ONCOLOGY CONSULTANT Cole Am y S, BORDER PATROL OFFICER * Because of a physical, mental, or emotional condition, do you have difficulty doing errands alone such as visiting a doctor's office or shopping? (15 years old or older) Answer Date of Assessment Author No 10/25/2017 2:00 PM JOHN Galvan Am y S, BORDER PATROL OFFICER documented as of this encounter Mental Status * Because of a physical, mental, or emotional condition, do you have serious difficulty concentrating, remembering, or making decisions? (5 years old or older) Answer Entry Date Author No 10/25/2017 2:00 PM JOHN Galvan Am y S, BORDER PATROL OFFICER documented in this encounter Plan of Treatment Not on file documented as of this encounter Goals Goal Patient Goal Type Associated Problems Recent Progress Patient-Stated? Author Blood Pressure < 140/90 Blood Pressure 134/86(2022 2:25 PM CDT) No Leonard Jasso APRN documented as of this encounter Visit Diagnoses Not on filedocumented in this encounter Care Teams Customer Account Executive Relationship Specialty Start Date End Date Leonard Jasso APRN [address] [facility] [address] [place] [address] PCP - General Family Medicine 08/15/19 04/30/21 Lacey Perdue MD [address] [phone] Referring Physician Infectious Diseases 06/28/18 documented as of this encounter
--- OUTSIDE RECORDS SUMMARY | 2024-11-23 00:28 | XMS_ITS | Encounter Summary ---
Author Organization [employer] Address [address] [place] [id number] Care Team Providers Care Lye Bath Operator Name Role Phone Lacey Perdue MD Unavailable Leonard Jasso APRN Primary Care Provide r Encounter Details Date Type Department Care Team (Latest Contact Info) Description 02/19/2020 Travel Social History Tobacco Use Types Packs/Day [...] No 10/25/2017 2:00 PM Deonna Padilla S, TUNNEL INSPECTOR * Do you have difficulty dressing or bathing? (5 years old or older) Answer Date of Assessment Author No 10/25/2017 2:00 PM Deonna Padilla S, TUNNEL INSPECTOR * Because of a physical, mental, or emotional condition, do you have difficulty doing errands alone such as visiting a doctor's office or shopping? (15 years old or older) Answer Date of Assessment Author No 10/25/2017 2:00 PM Deonna Padilla S, TUNNEL INSPECTOR documented as of this encounter Mental Status * Because of a physical, mental, or emotional condition, do you have serious difficulty concentrating, remembering, or making decisions? (5 years old or older) Answer Entry Date Author No 10/25/2017 2:00 PM Deonna Padilla, TUNNEL INSPECTOR documented in this encounter Plan of Treatment Not on file documented as of this encounter Goals Goal Patient Goal Type Associated Problems Recent Progress Patient-Stated? Author Blood Pressure < 140/90 Blood Pressure 134/86(2022 2:25 PM CDT) No Leonard Jasso APRN documented as of this encounter Visit Diagnoses Not on filedocumented in this encounter Care Teams Lye Bath Operator Relationship Specialty Start Date End Date Leonard Jasso APRN [address] [facility] [address] [place] [address] PCP - General Family Medicine 08/15/19 04/30/21 Lacey Perdue MD [address] [phone] Referring Physician Infectious Diseases 06/28/18 documented as of this encounter
--- OUTSIDE RECORDS SUMMARY | 2024-11-23 00:28 | XMS_ITS | Encounter Summary ---
Author Organization [facility] Address [address] [place] [address] Care Team Providers Care Plastics Seasoner Operator Name Role Phone Lacey Perdue MD Unavailable [phone] Leonard Jasso APRN Primary Care Provide r Reason for Visit * Reason Comments Back Pain chronic low back parth n Encounter Details Date Type Department Care Team (Late st Contact Info) Description 12/15/2019 3:00 PM SOLDERER TORCH Office Visit [address] [phone] Leonard Jasso, ANGIE [address] [place] [address] [phone] Chronic bilateral low back pain without sciatica (Primary Dx); Degenerative lumbar spinal stenosis Social History Tobacco Use Types Packs/Day Years [...] Sign Reading Time Taken Comments Blood Pressure 118/80 12/15/2019 2:50 PM SOLDERER TORCH Pulse 85 12/15/2019 2:50 PM SOLDERER TORCH Temperature 36.6 ??C (97.9 ??F) 12/15/2019 2:50 PM CS T Respiratory Rate 20 12/15/2019 2:50 PM SOLDERER TORCH Oxygen Saturation 96% 12/15/2019 2:50 PM SOLDERER TORCH Inhaled Oxygen Concentration - - Weight 89.6 kg (197 lb 8 oz) 12/15/2019 2:50 PM SOLDERER TORCH Height 180.3 cm (5' 11 ) 12/15/2019 2:50 PM SOLDERER TORCH Body Mass Index 27.55 12/15/2019 2:50 PM SOLDERER TORCH documented in this encounter Functional Status * Are you deaf or do you have serious difficulty hearing? Answer Date of Assessment Author No 10/25/2017 2:00 PM SOLDERER TORCH Deonna Galvan, CHEMIST ORGANIC * Are you blind or do you have serious difficulty seeing, even when wearing glasses? Answer Date of Assessment Author No 10/25/2017 2:00 PM Deonna Padilla S, CHEMIST ORGANIC * Do you have serious difficulty walking or climbing stairs? (5 years old or older) Answer Date of Assessment Author No 10/25/2017 2:00 PM Deonna Padilla, CHEMIST ORGANIC * Do you have difficulty dressing or bathing? (5 years old or older) Answer Date of Assessment Author No 10/25/2017 2:00 PM SOLDERER TORCH Deonna Galvan S, CHEMIST ORGANIC * Because of a physical, mental, or emotional condition, do you have difficulty doing errands alone such as visiting a doctor's office or shopping? (15 years old or older) Answer Date of Assessment Author No 10/25/2017 2:00 PM Deonna Padilla, CHEMIST ORGANIC documented as of this encounter Mental Status * Because of a physical, mental, or emotional condition, do you have serious difficulty concentrating, remembering, or making decisions? (5 years old or older) Answer Entry Date Author No 10/25/2017 2:00 PM Deonna Padilla, CHEMIST ORGANIC documented in this encounter Patient Instructions * Patient Instructions* Leonard Jasso APNP - 12/15/2019 3:00 PM SOLDERER TORCH Take medications exactly as prescribed. Warm moist heat 2-3 times daily to affected area as needed can help pain. It must be moist heat for better penetration. Range of motion and daily exercise is recommended. Stop any type of exercise that causes pain or increases your pain. You have chosen to treat your current pain with opiate pain medication. Explained potential negative side effects of medication including addictive properties and constipation. Pain medication can make some people unsteady on their feet and potentially lead to a bad fall. Do not take pain medication with alcohol it can cause over sedation and affect your breathing which could result in . Do not mix pain medications and benzodiazepines like ativan/lorazepam, xanax/alprazolam, and klonopin/clonazepam because it can cause over sedation and affect your breathing which could result in too. You should not drive while using opiates, muscle relaxers, or any other types of medications that can cause sedation and inhibit your ability to drive. Do not share your prescription with anyone else. It was prescribedto you and it is against the law to share pain medications with anyone else for any reason. You have signed a controlled substance agreement with me and must abide by all that is documented in the agreement. Follow up in 3 months. ERER TORCH documented in this encounter Progress Notes * Leonard Jasso APNP - 12/15/2019 3:00 PM CST Chief Complaint Patient presents with ??? Back Pain chronic low back pain [address] [address] Dept: [phone] Dept Loc: [phone] Loc Date: 12/15/2019 Name: Edilberto Hawley : 1955 PCP: TIFFANI Galeano Subjective: Patient ID: Edilberto Hawley is a 64 y.o. male. Again explained recommendation to see Dr. Gann at [facility] for LSI. History provided by: Patient Back Pain This is a chronic problem. The current episode started more than 1 year ago. The problem occurs intermittently. The problem has been unchanged. Pertinent negatives include no abdominal pain, arthralgias, change in bowel habit, chest pain, chills, congestion, coughing, diaphoresis, fatigue, fever, headaches, nausea, neck pain, numbness, sore throat, urinary symptoms, vertigo, visual change, vomiting or weakness. The symptoms are aggravated by bending. He has tried oral narcotics, NSAIDs, rest and heat for the symptoms. The treatment provided mild [...] abdominal distention, abdominal pain, blood in stool, change in bowel habit, constipation, diarrhea, nausea and vomiting. Endocrine: Negative for cold intolerance and heat intolerance. Genitourinary: Negative for difficulty urinating. Musculoskeletal: Positive for back pain. Negative for arthralgias and neck pain. Allergic/Immunologic: Negative for environmental allergies and food allergies. Neurological: Negative for dizziness, vertigo, seizures, syncope, weakness, numbness and headaches. Psychiatric/Behavioral: Negative for agitation and behavioral problems. Objective: Blood pressure 118/80, pulse 85, temperature 36.6 ??C (97.9 ??F), temperature source Tympanic, resp. rate 20, height 1.803 m (5' 11 ), weight 89.6 kg (197 lb 8 oz), SpO2 96 %., BMI Body mass index is27.55 kg/m??. Physical Exam Vitals signs and nursing note reviewed. Constitutional: General: He is not in acute distress. Appearance: Normal appearance. He is well-developed. He is not ill-appearing or diaphoretic. HENT: Head: Normocephalic and atraumatic. Eyes: Conjunctiva/sclera: Conjunctivae normal. Pupils: Pupils are equal, round, and reactive to light. Neck: Musculoskeletal: Normal range of motion and neck supple. No muscular tenderness. Cardiovascular: Rate and Rhythm: Normal rate and regular rhythm. Pulses: Dorsalis pedis pulses are 2+ on the right side. Posterior tibial pulses are 2+ on the right side. Heart sounds: Normal heart sounds, S1 normal and S2 normal. Pulmonary: Effort: Pulmonary effort is normal. No respiratory distress. Breath sounds: Normal breath sounds. No wheezing. Abdominal: General: There is no distension. Tenderness: There is no abdominal tenderness. Genitourinary: Penis: Circumcised. Musculoskeletal: Lumbar back: He exhibits decreased range of motion, tenderness, bony tenderness and pain. He exhibits no swelling, no edema, no deformity, no laceration, no spasm and normal pulse. Comments: Pt push/pulls bilateral lower extremities strong. Great toe lift bilaterally strong. DTR's 2/4 patellar. Mild tenderness with palpatation L3-5. Lymphadenopathy: Cervical: No cervical adenopathy. Skin: General: Skin is warm and dry. Neurological: Mental Status: He is alert and oriented to person, place, and time. Psychiatric: Mood and Affect: Mood normal. Behavior: Behavior normal. Thought Content: Thought content normal. Judgment: Judgment normal. Assessment/Plan: Problem List Items Addressed This Visit None Visit Diagnoses Chronic bilateral low back pain without sciatica - Primary Relevant Medications oxyCODONE-acetaminophen (PERCOCET) 10-325 MG per tablet Degenerative lumbar spinal stenosis Take medications exactly as prescribed. Warm moist heat 2-3 times daily to affected area as needed can help pain. It must be moist heat for better penetration. Range of motion and daily exercise is recommended. Stop any type of exercise that causes pain or increases your pain. You have chosen to treat your current pain with opiate pain medication. Explained potential negative side effects of medication including addictive properties and constipation. Pain medication can make some people unsteady on their feet and potentially lead to a bad fall. Do not take pain medication with alcohol it can cause over sedation and affect your breathing which could result in . Do not mix pain medications and benzodiazepines like ativan/lorazepam, xanax/alprazolam, and klonopin/clonazepam because it can cause over sedation and affect your breathing which could result in too. You should not drive while using opiates, muscle relaxers, or any other types of medications that can cause sedation and inhibit your ability to drive. Do not share your prescription with anyone else. It was prescribedto you and it is against the law to share pain medications with anyone else for any reason. You have signed a controlled substance agreement with me and must abide by all that is documented in the agreement. Follow up in 3 months. Next Visit: Follow up in about 3 months (around 03/14/2020), or if symptoms worsen or fail to improve. Encounter of: 12/15/2019 Signed: TIFFANI Galeano 12/18/2019 10:49 AM ERER TORCH documented in this encounter Plan of Treatment Not on file documented as of this encounter Goals Goal Patient Goal Type Associated Problems Recent Progress Patient-Stated? Author Blood Pressure < 140/90 Blood Pressure 134/86(2022 2:25 PM CDT) No Leonard Jasso APRN documented as of this encounter Visit Diagnoses Diagnosis Chronic bilateral low back pain without sciatica- Primary Degenerative lumbar spinal stenosis Spinal stenosis, lumbar region, without neurogenic claudication documented in this encounter Care Teams Plastics Seasoner Operator Relationship Specialty Start Date End Date Leonard Jasso APRN [address] [facility] [address] [place] [address] PCP - General Family Medicine 08/15/19 04/30/21 Lacey Perdue MD [address] [phone] Referring Physician Infectious Diseases 06/28/18 documented as of this encounter
--- OUTSIDE RECORDS SUMMARY | 2024-11-23 00:28 | XMS_ITS | Encounter Summary ---
Author Organization [facility] Address [address] [place] [address] Care Team Providers Care Supervisor Shipping Room Name Role Phone Lacey Perdue MD Unavailable [phone] Leonard Jasso APRN Primary Care Provide r Encounter Details Date Type Department Care Team (Latest Contact Info) Description 05/14/2020 Travel Social History Tobacco Use Types Packs/Day [...] No 10/25/2017 2:00 PM Deonna Padilla S, SCHOOL AGE TEACHER * Do you have difficulty dressing or bathing? (5 years old or older) Answer Date of Assessment Author No 10/25/2017 2:00 PM Deonna Padilla S, SCHOOL AGE TEACHER * Because of a physical, mental, or emotional condition, do you have difficulty doing errands alone such as visiting a doctor's office or shopping? (15 years old or older) Answer Date of Assessment Author No 10/25/2017 2:00 PM Deonna Padilla S, SCHOOL AGE TEACHER documented as of this encounter Mental Status * Because of a physical, mental, or emotional condition, do you have serious difficulty concentrating, remembering, or making decisions? (5 years old or older) Answer Entry Date Author No 10/25/2017 2:00 PM Deonna Padilla, SCHOOL AGE TEACHER documented in this encounter Plan of Treatment Not on file documented as of this encounter Goals Goal Patient Goal Type Associated Problems Recent Progress Patient-Stated? Author Blood Pressure < 140/90 Blood Pressure 134/86(2022 2:25 PM CDT) No Leonard Jasso APRN documented as of this encounter Visit Diagnoses Not on filedocumented in this encounter Care Teams Supervisor Shipping Room Relationship Specialty Start Date End Date Leonard Jasso APRN [address] [facility] [address] [place] [address] PCP - General Family Medicine 08/15/19 04/30/21 Lacey Perdue MD [address] [phone] Referring Physician Infectious Diseases 06/28/18 documented as of this encounter
--- OUTSIDE RECORDS SUMMARY | 2024-11-23 00:28 | XMS_ITS | Encounter Summary ---
Author Organization [facility] Address [address] [place] [address] Care Team Providers Care Corporate Security Manager Name Role Phone Lacey Perdue MD Unavailable David Concepcion APRN Primary Care Provide r Reason for Referral * Diagnostic Radiology (Routine) - Closed Specialty Diagnoses / Procedures Referred By Celine almaguer Referred To Contact Radiology Diagnoses Elevated liver enzymes Procedures US Abdomen Ltd David Concepcion APRN [address] [place] [address] Phone: tel: fax: Referral ID Status Reason Start Date Expiration Date Visits Re quested Visits Authorized [id number] Closed 05/13/2020 05/13/2021 1 1 Reason for Visit * Reason Onset Date Comments Results 05/13/2020 Encounter Details Date Type Department Care Team (Late st Contact Info) Description 05/13/[address] [id number] Zoey Seaman LPN [address] [place] [address] [address] [place] [address] Results Social History Tobacco Use Types Packs/Day [...] of Assessment Author No 10/25/2017 2:00 PM FERN CUTTER Deonna Galvan y S, GENERATING PLANT SUPERINTENDENT * Are you blind or do you have serious difficulty seeing, even when wearing glasses? Answer Date of Assessment Author No 10/25/2017 2:00 PM FERN CUTTER Deonna Galvan y S, GENERATING PLANT SUPERINTENDENT * Do you have serious difficulty walking or climbing stairs? (5 years old or older) Answer Date of Assessment Author No 10/25/2017 2:00 PM FERN CUTTER Deonna Galvan S, GENERATING PLANT SUPERINTENDENT * Do you have difficulty dressing or bathing? (5 years old or older) Answer Date of Assessment Author No 10/25/2017 2:00 PM FERN CUTTER Deonna Galvan y S, GENERATING PLANT SUPERINTENDENT * Because of a physical, mental, or emotional condition, do you have difficulty doing errands alone such as visiting a doctor's office or shopping? (15 years old or older) Answer Date of Assessment Author No 10/25/2017 2:00 PM FERN CUTTER Deonna Galvan S, GENERATING PLANT SUPERINTENDENT documented as of this encounter Mental Status * Because of a physical, mental, or emotional condition, do you have serious difficulty concentrating, remembering, or making decisions? (5 years old or older) Answer Entry Date Author No 10/25/2017 2:00 PM Deonna Padilla S, GENERATING PLANT SUPERINTENDENT documented in this encounter Miscellaneous Notes * Telephone Encounter - Zoey Seaman LPN - 05/13/2020 3:06 PM CDT Patient notified as below. He is scheduled for Ultrasound 05/15/20 and f/u appt scheduled for 05/16/20 * Telephone Encounter - Zoey Seaman LPN - 05/13/2020 3:02 PM CDT ----- Message from TIFFANI Galeano sent at 05/13/2020 2:40 PM CDT ----- Please schedule patient for a telehealth visit . I would like to discuss his A1c results and compliance in regard to needed testing. * Telephone Encounter - Zoey Seaman LPN - 05/13/2020 8:45 AM CDT ----- Message from TIFFANI Galeano sent at 05/13/2020 8:43 AM CDT ----- CMP reveals normal kidney function and mildly elevated blood sugar. Would like to add on an A1c because twice now patient has come in for fasting labs with a mildly elevated blood sugar. Also the patient has a sudden elevation in tests. They are close to 3 times normal. I would like to order an ultrasound of his liver and refer him to gastroenterology. He has no elevation in white cells so I do not think at this time his appendix is involved even though he did have right lower quadrant abdominal pain. His white cells are at the upper end of normal so when he goes for the ultrasound of his abdomen we can recheck a CBC. At the same time I would like him to get his A1c checked. Cancel the CT of the abdomen please. Patient really needs to be compliant because apparently he left the hospital because he did not want to wait to get the CT of his abdomen. documented in this encounter Plan of Treatment Not on file documented as of this encounter Goals Goal Patient Goal Type Associated Problems Recent Progress Patient-Stated? Author Blood Pressure < 140/90 Blood Pressure 134/86(2022 2:25 PM CDT) No David Concepcion APRN documented as of this encounter Results * US Abdomen Ltd [...] PM T: ??05/15/2020 2:32 PM Report ID: [id number] Reading Location: ??[facility] Narrative 05/15/2020 2:32 PM CDT [address] [place] [address] Patient Name:EDILBERTO DURAND ?Accession Number: [id number] Patient ID Number:[id number] ?Approval Date: 05/15/2020 2:32 PM Date of [...] Procedure Note Saul Argueta MD - 05/15/[address] [place] [address] Patient Name:EDILBERTO DURAND Accession Number: [id number] Patient ID Number:[id number] Approval Date: 05/15/2020 2:32 PM Date of [...] Saul Argueta M.D. AK: DANAY Report ID: [id number] Reading Location: [facility] us David Concepcion APRN IMG US ORDERABLES Fin al Result * (ABNORMAL) Hemoglobin A1c (05/10/2020 4:43 PM CDT) Hemoglobin A1C 6.2(H) 3.8 - 5.6 % 05/13/2020 9:[address] [facility] Whole blood specimen (specimen) 05/10/2020 4:43 PM CDT 05/13/2020 8:50 AM CDT us David Concepcion APRN LAB BLOOD ORDERABLES Final Result [facility] [address] [facility] [address] [place] [address] documented in this encounter Visit Diagnoses Diagnosis Elevated fasting glucose- Primary Impaired fasting glucose Elevated liver enzymes Nonspecific elevation of levels of transaminase or lactic acid dehydrogenase (LDH) Elevated liver enzymes Nonspecific elevation of levels of transaminase or lactic acid dehydrogenase (LDH) documented in this encounter Care Teams Corporate Security Manager Relationship Specialty Start Date End Date David Concepcion APRN [address] [facility] [address] [place] [address] PCP - General Family Medicine 08/15/19 04/30/21 Lacey Perdue MD [address] [phone] Referring Physician Infectious Diseases 06/28/18 documented as of this encounter
--- OUTSIDE RECORDS SUMMARY | 2024-11-23 00:28 | XMS_ITS | Encounter Summary ---
Author Organization [employer] Address [address] [place] [id number] Care Team Providers Care Power Generating Plant Operator Name Role Phone Lacey Perdue MD Unavailable [phone] Leonard Jasso APRN Primary Care Provide r Reason for Visit * Reason Comments Urinary Incontinence urology referral in March Encounter Details Date Type Department Care Team (Late st Contact Info) Description 02/20/2020 8:15 AM CDT Office Visit [address] [address] Leonard Jasso APRN [facility] [place], [place] [id number] Chronic bilateral low back pain without sciatica (Primary Dx); Benign prostatic hyperplasia with incomplete bladder emptying; Acute pain of right shoulder; 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; Wound of right lower extremity, subsequent encounter; Screening for cardiovascular condition; Screening for thyroid disorder Social History Tobacco Use Types Packs/Day Years [...] Sign Reading Time Taken Comments Blood Pressure 140/80 02/20/2020 8:23 AM CDT Pulse 78 02/20/2020 8:23 AM CDT Temperature 36.6 ??C (97.8 ??F) 02/20/2020 8:23 AM CD T Respiratory Rate - - Oxygen Saturation 96% 02/20/2020 8:23 AM CDT Inhaled Oxygen Concentration - - Weight 90.4 kg (199 lb 4.8 oz) 02/20/2020 8:23 A M CDT Height 185.4 cm (6' 1 ) 02/20/2020 8:23 AM CDT Body Mass Index 26.29 02/20/2020 8:23 AM CDT documented in this encounter Functional [...] * Patient Instructions* Leonard Jasso APNP - 02/20/2020 8:15 AM CDT Please keep appt with Urology when they call you in March for follow up due to chcf in place order. Continue current medications. Continue current medications for shoulder pain and complete Range Of Motion throughout the day as discussed. We will call you with lab results and plan when available. Cover ankle wound with light dressing and follow up with Surgeon when contacted due to chcf in place order. Follow up in 3 months. documented in this encounter Progress Notes * Leonard Jasso APNP - 02/20/2020 8:15 AM CDT Chief Complaint Patient presents with ??? Urinary Incontinence urology referral in March [address] [address] Dept: [phone] Dept Loc: [phone] Loc Date: 02/20/2020 Name: Edilberto Hawley : 1955 PCP: TIFFANI Galeano Subjective: Patient ID: Edilberto Hawley is a 64 y.o. male. Right lower extremity wound 2cm long 1cm wide. Scant to No drainage. Granulation tissue noted. Unable to follow up with surgeon due to chcf in place. Reassured pt wound appears to be healing well and no infection suspected. History provided by: Patient Benign Prostatic Hypertrophy This is a chronic problem. The current episode started more than 1 year ago. The problem is unchanged. Irritative symptoms do not include frequency, nocturia or urgency. Obstructive symptoms include an intermittent stream and a weak stream. Pertinent negatives include no chills, hematuria, nausea or vomiting. Nothing aggravates the symptoms. Past treatments include finasteride and tamsulosin. The treatment provided moderate relief. He has been using treatment for 1 to 2 years. Shoulder Injury The pain is present in the right shoulder. This is a new problem. The current episode started 1 to 4 weeks ago. There has been a history of trauma. The problem occurs constantly. The problem has beenunchanged. The quality of the pain is described as aching. The pain is at a severity of 6/10. Pertinent negatives include no fever, joint locking, joint swelling, limited range of motion, numbness ortingling. The symptoms are aggravated by activity. He has tried oral narcotics and NSAIDS (Tens Unit. ) for the symptoms. The treatment provided significant relief. Family history does not include gout or rheumatoid arthritis. His past medical history is significant for osteoarthritis. There is no history of gout or rheumatoid arthritis. Patient's medications, allergies, past medical, surgical, social [...] and heat intolerance. Genitourinary: Negative for difficulty urinating, frequency, hematuria, nocturia and urgency. Weak stream. Musculoskeletal: Negative for gout. Right shoulder pain. Skin: Negative for rash. Allergic/Immunologic: Negative for environmental allergies and food allergies. Neurological: Negative for dizziness, tingling, seizures, syncope and numbness. Psychiatric/Behavioral: Negative for agitation and behavioral problems. Objective: Blood pressure 140/80, pulse 78, temperature 36.6 ??C (97.8 ??F), height 1.854 m (6' 1 ), weight 90.4 kg (199 lb 4.8 oz), SpO2 96 %., BMI Body mass index is 26.29 kg/m??. Physical Exam Vitals signs and nursing [...] Breath sounds: Normal breath sounds. No wheezing. Skin: General: Skin is warm and dry. Comments: Right lower extremity wound 2cm long 1cm wide. No significant drainage noted. No fever orerythema. Minimal to no significant pain. Neurological: Mental Status: He is alert and oriented to person, place, and time. Psychiatric: Mood and Affect: Mood normal. Behavior: Behavior normal. Assessment/Plan: Problem List Items Addressed This Visit None Visit Diagnoses Chronic bilateral low back pain without sciatica - Primary Relevant Medications aspirin 325 MG tablet Other Relevant Orders Urine Drug Screen Benign prostatic hyperplasia with incomplete bladder emptying Relevant Orders PSA Acute pain of right shoulder 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 Wound of right lower extremity, subsequent encounter Relevant Orders CBC and differential Screening for cardiovascular condition Relevant Orders CBC and differential Comprehensive metabolic panel Lipid panel Screening for thyroid disorder Relevant Orders CBC and differential Comprehensive metabolic panel TSH T4, free Please keep appt with Urology when they call you in March for follow up due to chcf in place order. Continue current medications. Continue current medications for shoulder pain and complete Range Of Motion throughout the day as discussed. We will call you with lab results and plan when available. Cover ankle wound with light dressing and follow up with Surgeon when contacted due to chcf in place order. Follow up in 3 months. Next Visit: No follow-ups on file. Encounter of: 02/20/2020 Signed: TIFFANI Galeano 02/20/2020 8:53 AM documented in this encounter Plan of Treatment Not on file documented as of this encounter Goals Goal Patient Goal Type Associated Problems Recent Progress Patient-Stated? Author Blood Pressure < 140/90 Blood Pressure 134/86(2022 2:25 PM CDT) No Leonard Jasso APRN documented as of this encounter Results * PSA (02/20/2020 9:05 AM CDT) PSA 0.41 0.00 - 4.00 ng/mL 02/20/2020 2:[address] [facility] Serum specimen (specimen) 02/20/2020 9:05 AM CDT 02/20/2020 1:57 PM CDT Leonard Jasso APRN LAB BLOOD ORDERABLES Final Result [facility] [address] [facility] [address] [place] [address] * T4, free (02/20/2020 9:05 AM CDT) Free T4 0.92 0.76 - 1.46 ng/dL 02/20/2020 2:[address] [facility] Serum specimen (specimen) 02/20/2020 9:05 AM CDT 02/20/2020 1:57 PM CDT Leonard Jasso APRN LAB BLOOD ORDERABLES Final Result [facility] [address] [facility] [address] [place] [address] * TSH (02/20/2020 9:05 AM CDT) TSH 1.99 0.36 - 3.74 m[IU]/L 02/20/2020 2:[address] [facility] Serum specimen (specimen) BLOOD SPECIMEN / Unknown 02/20/2020 9:05 AM CDT 02/20/2020 1:57 PM CDT Leonard Jasso APRN LAB BLOOD ORDERABLES Final Result [facility] [address] [facility] [address] [place] [address] * (ABNORMAL) Lipid panel (02/20/2020 9:05 AM CDT) Cholesterol 191 0 - 200 mg/dL 02/20/2020 2:[address] [facility] Triglycerides 246(H) 30 - 150 mg/dL 02/20/2020 2:[address] [facility] HDL Cholesterol 37(L) 40 - 60 mg/dL 02/20/2020 2:[address] [facility] LDL, Calculated 105 0 - 130 mg/dL 02/20/2020 2:[address] [facility] Cholesterol/HDL Ratio 5.2(H) 4 - 5 02/20/2020 2:[address] [facility] Serum specimen (specimen) 02/20/2020 9:05 AM CDT 02/20/2020 1:57 PM CDT Leonard Jasso COMMERCIAL DESIGNER LAB BLOOD ORDERABLES Final Result [facility] [address] [facility] [address] [place] [address] * (ABNORMAL) Comprehensive metabolic panel (02/20/2020 9:05 AM CDT) Sodium 143 136 - 145 mmol/L 02/20/2020 2:[address] [facility] Potassium 4.8 3.5 - 5.1 mmol/L 02/20/2020 2:[address] [facility] Chloride 105 98 - 107 mmol/L 02/20/2020 2:[address] [facility] CO2 29 21 - 32 mmol/L 02/20/2020 2:[address] [facility] Glucose 152(H) 74 - 106 mg/dL 02/20/2020 2:[address] [facility] BUN 15 7.0 - 18.0 mg/dL 02/20/2020 2:[address] [facility] Creatinine 1.05 0.70 - 1.30 mg/dL 02/20/2020 2:43 PM [facility] Calcium 9.4 8.5 - 10.1 mg/dL 02/20/2020 2:43 PM [facility] Total Protein 8.2 6.4 - 8.2 g/dL 02/20/2020 2:[address] [facility] Albumin 4.2 3.4 - 5.0 g/dL 02/20/2020 2:[address] [facility] Bilirubin Total 0.5 0.2 - 1.0 mg/dL 02/20/2020 2:[address] [facility] Alkaline Phosphatase 94 56 - 119 U/L 02/20/2020 2:[address] [facility] AST 49(H) 15 - 37 U/L 02/20/2020 2:[address] [facility] ALT 73(H) 16 - 63 U/L 02/20/2020 2:[address] [facility] Anion Gap 9 8 - 16 mmol/L 02/20/2020 2:[address] [facility] BUN/Creatinine Ratio 14.3 02/20/2020 2:[address] [facility] Osmolality Calculated 289 285 - 295 mosm/kg 02/20/2020 2:[address] [facility] Globulin 4.0(H) 2.3 - 3.4 g/dL 02/20/2020 2:[address] [facility] A/G Ratio 1.1(L) 1.2 - 2.4 02/20/2020 2:[address] [facility] Creatinine Based eGFR 74 mL/min/[1. 73_m2] 02/20/2020 2:[address] [facility] Comment:GFR 60-90 Mild decre ased GFR. EGFR /Ugandan 85 mL/min/[1. 73_m2] 02/20/2020 2:[address] [facility] Comment:GFR 60-90 Mild decre ased GFR. Serum specimen (specimen) 02/20/2020 9:05 AM CDT 02/20/2020 1:57 PM T Leonard Jasso COMMERCIAL DESIGNER LAB BLOOD ORDERABLES Final Result [facility] [address] [facility] [address] [place] [address] * CBC and differential (02/20/2020 9:05 AM CDT) WBC 6.91 4.00 - 11.00 10*3/uL 02/20/2020 2:[address] [facility] RBC 5.58 4.50 - 6.50 10*6/uL 02/20/2020 2:[address] [facility] HGB 17.0 13.8 - 18.0 g/dL 02/20/2020 2:[address] [facility] HCT 50.8 40.0 - 54.0 % 02/20/2020 2:[address] [facility] MCV 91.0 76 - 99 fL 02/20/2020 2:[address] [facility] MCH 30.5 27.0 - 32.0 pg 02/20/2020 2:[address] [facility] MCHC 33.5 30.0 - 35.0 g/dL 02/20/2020 2:[address] [facility] Platelets 216 135 - 470 10*3/uL 02/20/2020 2:[address] [facility] RDW-CV 12.4 11.0 - 17.0 % 02/20/2020 2:[address] [facility] MPV 10.3 8.0 - 12.5 fL 02/20/2020 2:[address] [facility] Differential Type AUTOMATED DIFFERENTIAL 02/20/2020 2:[address] [facility] Neutrophil % 61.6 45.0 - 75.0 % 02/20/2020 2:[address] [facility] Lymphocytes % 26.9 20.0 - 45.0 % 02/20/2020 2:[address] [facility] Monocyte % 8.8 0.0 - 10.0 % 02/20/2020 2:[address] [facility] Eosinophils Relative % 2.0 0.0 - 5.0 % 02/20/2020 2:08 PM [facility] Basophils % 0.4 0.0 - 2.0 % 02/20/2020 2:[address] [facility] Immature Granulocytes% 0.3 0.0 - 1.6 % 02/20/2020 2:08 PM [facility] Neutrophils Absolute 4.25 2.00 - 7.90 10*3/uL 02/20/2020 2:08 PM [facility] Lymphocytes Absolute 1.86 1.00 - 4.00 10*3/uL 02/20/2020 2:08 PM [facility] Monos Absolute 0.61 0.00 - 0.80 10*3/uL 02/20/2020 2:08 PM [facility] Eosinophils Absolute Count 0.14 0.00 - 0.40 10*3/uL 02/20/2020 2:08 PM [facility] Basophils Absolute 0.03 0.00 - 0.10 10*3/uL 02/20/2020 2:08 PM [facility] Immature Granulocytes Absolute 0.02 0.0 - 0.20 10*3/uL 02/20/2020 2:[address] [facility] Serum specimen (specimen) 02/20/2020 9:05 AM CDT 02/20/2020 1:57 PM CDT us Leonard Jasso APRN LAB BLOOD ORDERABLES Final Result [facility] [address] [facility] [address] [place] [address] * Urine Drug Screen (02/20/2020) Urine specimen (specimen) 02/20/2020 Narrative [facility] - 02/26/2020 8:38 AM CDT See scanned image. us Leonard W Wasielewski COMMERCIAL DESIGNER URINE ORDERABLES Veronica l Result [facility] [address] [place] documented in this encounter Visit Diagnoses Diagnosis Chronic bilateral low back pain without sciatica- Primary Benign prostatic hyperplasia with incomplete bladder emptying Acute pain of right shoulder 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 Nodular prostate with urinary obstruction Wound of right lower extremity, subsequent encounter Screening for cardiovascular condition Screening for other and unspecified cardiovascular conditions Screening for thyroid disorder Chronic bilateral low back pain without sciatica documented in this encounter Care Teams Power Generating Plant Operator Relationship Specialty Start Date End Date Leonard Jasso APRN [address] [facility] [address] [place], [place] [address] PCP - General Family Medicine 08/15/19 04/30/21 Lacey Perdue MD [address] [address] Referring Physician Infectious Diseases 06/28/18 documented as of this encounter
--- OUTSIDE RECORDS SUMMARY | 2024-11-23 00:28 | XMS_ITS | Encounter Summary ---
Author Organization [employer] Address [address] [place] [address] Care Team Providers Care Emergency Preparedness Manager Name Role Phone Lacey Perdue MD Unavailable [phone] Leonard Jasso APRN Primary Care Provide r Encounter Details Date Type Department Care Team (Latest Contact Info) Description 05/10/2020 4:20 PM CDT - 05/10/2020 11:59 PM CDT Hospital Encounter [facility] [address] [place] [address] Right lower quadrant abdominal pain; Elevated fasting glucose Discharge Disposition: Home - Discharge to Home [...] of Assessment Author No 10/25/2017 2:00 PM LOCOMOTIVE ELECTRICIAN Deonna Galvan, GEORGE * Are you blind [...] Associated Diagnosis Comments CBC AND DIFFERENTIAL Routine 05/10/2020 4:43 PM CDT Right lower quadrant abdominal pain HEMOGLOBIN A1C Routine 05/10/2020 4:43 PM CDT Elevated fasting glucose COMPREHENSIVE METABOLIC PANEL Routine 05/10/2020 4:43 PM CDT Right lower quadrant abdominal pain documented in this encounter Results * (ABNORMAL) Hemoglobin A1c (05/10/2020 4:43 PM CDT) Hemoglobin A1C 6.2(H) 3.8 - 5.6 % 05/13/2020 9:32 AM CDT [facility] Whole blood specimen (specimen) 05/10/2020 4:43 PM CDT 05/13/2020 8:50 AM CDT us Leonard Jasso APRN LAB BLOOD ORDERABLES Final Result [facility] [address] [facility] [address] [place] [address] * (ABNORMAL) Comprehensive metabolic panel (05/10/2020 4:43 PM [facility]) Sodium 140 136 - 145 mmol/L 05/10/2020 5:27 PM [facility] Potassium 4.2 3.5 - 5.1 mmol/L 05/10/2020 5:27 PM [facility] Chloride 104 98 - 107 mmol/L 05/10/2020 5:27 PM [facility] CO2 27 21 - 32 mmol/L 05/10/2020 5:27 PM [facility] Glucose 143(H) 74 - 106 mg/dL 05/10/2020 5:27 PM [facility] BUN 16 7.0 - 18.0 mg/dL 05/10/2020 5:27 PM [facility] Creatinine 1.23 0.70 - 1.30 mg/dL 05/10/2020 5:27 PM [facility] Calcium 9.3 8.5 - 10.1 mg/dL 05/10/2020 5:27 PM [facility] Total Protein 7.9 6.4 - 8.2 g/dL 05/10/2020 5:27 PM [facility] Albumin 4.2 3.4 - 5.0 g/dL 05/10/2020 5:27 PM [facility] Bilirubin Total 0.7 0.2 - 1.0 mg/dL 05/10/2020 5:27 PM [facility] Alkaline Phosphatase 91 56 - 119 U/L 05/10/2020 5:27 PM [facility] AST 115(H) 15 - 37 U/L 05/10/2020 5:27 PM [facility] ALT 167(H) 16 - 63 U/L 05/10/2020 5:27 PM [facility] Anion Gap 9 8 - 16 mmol/L 05/10/2020 5:27 PM [facility] BUN/Creatinine Ratio 13.0 05/10/2020 5:27 PM [facility] Osmolality Calculated 283(L) 285 - 295 mosm/kg 05/10/2020 5:27 PM [facility] Globulin 3.7(H) 2.3 - 3.4 g/dL 05/10/2020 5:27 PM [facility] A/G Ratio 1.1(L) 1.2 - 2.4 05/10/2020 5:27 PM [facility] Creatinine Based eGFR 61 mL/min/[1. 73_m2] 05/10/2020 5:27 PM [facility] Comment:GFR 60-90 Mild decre ased GFR. EGFR /Emirati 70 mL/min/[1. 73_m2] 05/10/2020 5:27 PM [facility] Comment:GFR 60-90 Mild decre ased GFR. Serum specimen (specimen) 05/10/2020 4:43 PM CDT 05/10/2020 4:47 PM CDT Leonard Jasso PRODUCTION SUPPORT ENGINEER LAB BLOOD ORDERABLES Final Result [facility] [address] [facility] [address] [place] [address] * (ABNORMAL) CBC and differential (05/10/2020 4:43 PM CDT) WBC 10.78 4.00 - 11.00 10*3/uL 05/10/2020 4:51 PM [facility] RBC 5.09 4.50 - 6.50 10*6/uL 05/10/2020 4:51 PM [facility] HGB 15.8 13.8 - 18.0 g/dL 05/10/2020 4:51 PM [facility] HCT 46.5 40.0 - 54.0 % 05/10/2020 4:51 PM [facility] MCV 91.4 76 - 99 fL 05/10/2020 4:51 PM [facility] MCH 31.0 27.0 - 32.0 pg 05/10/2020 4:51 PM [facility] MCHC 34.0 30.0 - 35.0 g/dL 05/10/2020 4:51 PM [facility] Platelets 205 135 - 470 10*3/uL 05/10/2020 4:51 PM [facility] RDW-CV 11.9 11.0 - 17.0 % 05/10/2020 4:51 PM [facility] MPV 9.7 8.0 - 12.5 fL 05/10/2020 4:51 PM [facility] Differential Type AUTOMATED DIFFERENTIAL 05/10/2020 4:52 PM [facility] Neutrophil % 70.4 45.0 - 75.0 % 05/10/2020 4:52 PM [facility] Lymphocytes % 20.0 20.0 - 45.0 % 05/10/2020 4:52 PM [facility] Monocyte % 7.5 0.0 - 10.0 % 05/10/2020 4:52 PM [facility] Eosinophils Relative % 1.2 0.0 - 5.0 % 05/10/2020 4:52 PM [facility] Basophils % 0.4 0.0 - 2.0 % 05/10/2020 4:52 PM [facility] Immature Granulocytes% 0.5 0.0 - 1.6 % 05/10/2020 4:52 PM [facility] Neutrophils Absolute 7.59 2.00 - 7.90 10*3/uL 05/10/2020 4:52 PM [facility] Lymphocytes Absolute 2.16 1.00 - 4.00 10*3/uL 05/10/2020 4:52 PM [facility] Monos Absolute 0.81(H) 0.00 - 0.80 10*3/uL 05/10/2020 4:52 PM [facility] Eosinophils Absolute Count 0.13 0.00 - 0.40 10*3/uL 05/10/2020 4:52 PM [facility] Basophils Absolute 0.04 0.00 - 0.10 10*3/uL 05/10/2020 4:52 PM [facility] Immature Granulocytes Absolute 0.05 0.0 - 0.20 10*3/uL 05/10/2020 4:52 PM CDT [facility] Serum specimen (specimen) 05/10/2020 4:43 PM CDT 05/10/2020 4:47 PM CDT Leonard Jasso PRODUCTION SUPPORT ENGINEER LAB BLOOD ORDERABLES Final Result [facility] [address] [facility] [address] [place] [address] documented in this encounter Visit Diagnoses Diagnosis Right lower quadrant abdominal pain Abdominal pain, right lower quadrant Elevated fasting glucose Impaired fasting glucose documented in this encounter Care Teams Emergency Preparedness Manager Relationship Specialty Start Date End Date Leonard Jasso APRN [address] [facility] [address] [place] [address] PCP - General Family Medicine 08/15/19 04/30/21 Lacey Perdue MD [address] [address] Referring Physician Infectious Diseases 06/28/18 documented as of this encounter
--- OUTSIDE RECORDS SUMMARY | 2024-11-23 00:28 | XMS_ITS | Encounter Summary ---
Author Organization [facility] Address [address] [place] [address] Care Team Providers Care Broke Handler Name Role Phone Lacey Perdue MD Unavailable [phone] Leonard Jasso APRN Primary Care Provide r Reason for Visit * Reason Comments Medication Refill Encounter Details Date Type Department Care Team (Late st Contact Info) Description 04/01/[address] [address] Leonard Jasso, ANGIE [address] [place] [id number] Social History Tobacco Use Types Packs/Day [...] No 10/25/2017 2:00 PM Deonna Padilla, MANAGER BEAUTY * Are you blind or do you have serious difficulty seeing, even when wearing glasses? Answer Date of Assessment Author No 10/25/2017 2:00 PM Deonna Padilla, MANAGER BEAUTY * Do you have serious difficulty walking or climbing stairs? (5 years old or older) Answer Date of Assessment Author No 10/25/2017 2:00 PM Deonna Padilla, MANAGER BEAUTY * Do you have difficulty dressing or bathing? (5 years old or older) Answer Date of Assessment Author No 10/25/2017 2:00 PM Deonna Padilla, MANAGER BEAUTY * Because of a physical, mental, or emotional condition, do you have difficulty doing errands alone such as visiting a doctor's office or shopping? (15 years old or older) Answer Date of Assessment Author No 10/25/2017 2:00 PM Deonna Padilla, MANAGER BEAUTY documented as of this encounter Mental Status [...] on filedocumented in this encounter Care Teams Broke Handler Relationship Specialty Start Date End Date Leonard Jasso APRN [address] [facility] [address] [place] [address] PCP - General Family Medicine 08/15/19 04/30/21 Lacey Perdue MD [address] [address] Referring Physician Infectious Diseases 06/28/18 documented as of this encounter
--- OUTSIDE RECORDS SUMMARY | 2024-11-23 00:28 | XMS_ITS | Encounter Summary ---
Author Organization [facility] Address [address] [place] [address] Care Team Providers Care Public Safety Director Name Role Phone Lacey Perdue MD Unavailable [phone] Leonard Jasso APRN Primary Care Provide r Reason for Visit * Reason Comments Wrist Pain Encounter Details Date Type Department Care Team (Late st Contact Info) Description 09/08/2020 5:02 PM CDT - 09/08/2020 6:54 PM CDT Emergency [facility] [address] [place] [id number] Rickey Bailey F, DO [address] [address] Arthritis of left wrist (Primary Dx); Left wrist pain Discharge Disposition: Home - Discharge to [...] Sign Reading Time Taken Comments Blood Pressure 144/83 09/08/2020 5:04 PM CDT Pulse 88 09/08/2020 5:04 PM CDT Temperature 36.7 ??C (98.1 ??F) 09/08/2020 5:04 PM CD T Respiratory Rate 16 09/08/2020 5:04 PM CDT Oxygen Saturation 97% 09/08/2020 5:04 PM CDT Inhaled Oxygen Concentration - - Weight 90.7 kg (200 lb) 09/08/2020 5:04 PM CDT Height 180.3 cm (5' 11 ) 09/08/2020 5:04 PM CDT Body Mass Index 27.89 09/08/2020 5:04 PM CDT documented in this encounter Functional Status * Are you deaf or do you have serious difficulty hearing? Answer Date of Assessment Author No 10/25/2017 2:00 PM Deonna Padilla, PLYWOOD MATCHER * Are you blind or do you have serious difficulty seeing, even when wearing glasses? Answer Date of Assessment Author No 10/25/2017 2:00 PM Deonna Padilla, PLYWOOD MATCHER * Do you have serious difficulty walking or climbing stairs? (5 years old or older) Answer Date of Assessment Author No 10/25/2017 2:00 PM Deonna Padilla, PLYWOOD MATCHER * Do you have difficulty dressing or bathing? (5 years old or older) Answer Date of Assessment Author No 10/25/2017 2:00 PM Deonna Padilla, PLYWOOD MATCHER * Because of a physical, mental, or emotional condition, do you have difficulty doing errands alone such as visiting a doctor's office or shopping? (15 years old or older) Answer Date of Assessment Author No 10/25/2017 2:00 PM Deonna Padilla, PLYWOOD MATCHER documented as of this encounter Mental Status * Because of a physical, mental, or emotional condition, do you have serious difficulty concentrating, remembering, or making decisions? (5 years old or older) Answer Entry Date Author No 10/25/2017 2:00 PM Deonna Padilla, PLYWOOD MATCHER documented in this encounter Discharge Instructions * Discharge Instructions* Courtney Yuan RN - 09/08/2020 6:49 PM CDT Images from the original note were not included. Arthritis: Care Instructions Overview Arthritis, also called osteoarthritis, is a breakdown of the cartilage that cushions your joints. When the cartilage wears down, your bones rub against each other. This causes pain and stiffness. Many people have some arthritis as they age. Arthritis most often affects the joints of the spine, hands, hips, knees, or feet. Arthritis never goes away completely. But medicine and home treatment can help reduce pain and helpyou stay active. Follow-up care is a whalen part of your treatment and safety. Be sure to make and go to all appointments, and call your doctor if you are having problems. It's also a good idea to know your test resultsand keep a list of the medicines you take. How can you care for yourself at home? ?? Stay at a healthy weight. Being overweight puts extra strain on your joints. ?? Talk to your doctor or physical therapist about exercises that will help ease joint pain. ? Stretch. You may enjoy gentle forms of yoga to help keep your joints and muscles flexible. ? Walk instead of jog. Other types of exercise that are less stressful on the joints include ridinga bike, swimming, alison chi, or water exercise. ? Lift weights. Strong muscles help reduce stress on your joints. Stronger thigh muscles, for example, take some of the stress off of the knees and hips. Learn the right way to lift weights so you don't make joint pain worse. ?? Take your medicines exactly as prescribed. Call your doctor if you think you are having a problem with your medicine. ?? Take pain medicines exactly as directed. ? If the doctor gave you a prescription medicine for pain, take it as prescribed. ? If you are not taking a prescription pain medicine, ask your doctor if you can take an [id number] medicine. ?? Use a cane, crutch, walker, or another device if you need help to get around. These can help rest your joints. You also can use other things to make life easier, such as a higher toilet seat and padded handles on kitchen utensils. ?? Do not sit in low chairs. They can make it hard to get up. ?? Put heat or cold on your sore joints as needed. Use whichever helps you most. You can also switch between hot and cold packs. ? Apply heat 2 or 3 times a day for 20 to 30 minutes--using a heating pad, hot shower, or hot pack--to relieve pain and stiffness. But don't use heat on a swollen joint. ? Put ice or a cold pack on your sore joint for 10 to 20 minutes at a time. Put a thin cloth between the ice and your skin. When should you call for help? Call your doctor now or seek immediate medical care if: ?? You have sudden swelling, warmth, or pain in any joint. ?? You have joint pain and a fever or rash. ?? You have such bad pain that you cannot use a joint. Watch closely for changes in your health, and be sure to contact your doctor if: ?? You have mild joint symptoms that continue even with more than 6 weeks of care at home. ?? You have stomach pain or other problems with your medicine. Where can you learn more? Go to the Search Medical Library option found under the Resources tab in [employer] [email or web address]. If you do not have access to [employer], you can visit [email or web address] and select [employer] from the menu on the left. Enter Z807 in the search box to learn more about Arthritis: Care Instructions. Not on [employer]? Go to [email or web address] and click the Sign Up Now link to request an activation code. Current as of: October 23, 2019?Content Version: 12.5 ?? [employer]. Care instructions adapted under license by your healthcare professional. This care instruction is for use with your licensed healthcare professional. If you have questions about a medical condition or this instruction, always ask your healthcare professional. [employer] disclaims any warranty or liability for your use of this information. documented in this encounter Medications at Time [...] tablet by mouth daily. 30 tablet 5 07/17/2020 0 baclofen (LIORESAL) 10 MG tablet Take [...] this encounter ED Notes * Rickey Bailey, - 09/08/2020 5:19 PM CDT History Chief Complaint Patient presents with ??? Wrist Pain HPI This is a 64-year-old gentleman who comes in for wrist pain. Patient had chronic wrist pain mostly in the carpal area but now over the last week or so has become more severe with some swelling of thedorsum of the left wrist with decreased range of motion and pain with range of motion. He denies any history of injury. He bought a wrist splint which has helped slightly. Most of his pain seems to be in the mid dorsum of the proximal hand across the carpal bones. Past Medical History: Diagnosis Date ??? Arthritis ??? Back injury ??? Chronic back pain greater than 3 months duration ??? GERD (gastroesophageal reflux disease) ??? Migraines ??? Osteomyelitis of ankle or foot, acute, right ([facility]) 2018 Stepped on nail ??? Shoulder injury ??? Substance abuse ([facility]) cocaine, crystal meth nothing since [...] Morphine Comment: Arthritis pain Review of Systems Review of systems is negative except for his wrist pain and decreased range of motion. Allergies / Sensitivities No Known Allergies Current Immunization Status per Nursing Immunization Status Tetanus up to date?: Yes Flu vaccine up to date?: No Have you ever had a pneumococcal (pneumonia) vaccination?: No Pneumococcal Vaccine Screen - Year Round Have you ever had a pneumococcal (pneumonia) vaccination?: No Immunization Hx Most Recent Immunizations Administered Date(s) Administered ??? Influenza (FLUAD) aIIV3 11/03/2019 ??? Pneumococcal Polysaccharide-23 (Pneumovax 23) PPSV23 01/21/2018 ??? Tdap 04/16/2017 Physical Exam BP 144/83 Pulse 88 Temp 36.7 ??C (98.1 ??F) (Tympanic) Resp 16 Ht 1.803 m (5' 11 ) Wt 90.7 kg (200 lb) SpO2 97% BMI 27.89 kg/m?? GCS Assessment: Eye Opening: Spontaneous Best Verbal Response: Oriented Best Motor Response: Obeys commands Juvencio Coma Scale Score: 15 Physical Exam Limited examination of the left wrist show some moderate arthritic changes. There are some swellingof the dorsum of the left wrist mostly mid by the proximal carpal row. He also has some arthritic changes at the base of the left thumb without any pain on movement. Edwin's maneuver is negative. He has about 30 degrees of dorsiflexion and around 10 degrees of volar flexion with pain. Neurovascular examination is normal. Skin is intact. 09/08/2020 ED Lab Results - No data to display Imaging / Studies reviewed: Imaging Results XR Wrist Min 3 Views L (Final result) Result time 09/08/20 18:37:52 Final result by Saul Douglas MD (09/08/20 18:37:52) Impression: No gross acute osseous abnormality of the left wrist. THIS IS AN ELECTRONICALLY VERIFIED FINAL REPORT 09/08/2020 6:37 PM - Electronically signed by Saul Douglas M.D. AG: SHERRY Report ID: [id number] Reading Location: [place] [address] Narrative: [address] [place] [address] Patient Name:EDILBERTO DURAND Accession Number: [id number] Patient ID Number:[id number] Approval Date: 09/08/2020 6:37 PM Date of :1955 Imaging Date: 09/08/2020 Gender:M Referring Physician:RICKEY BAILEY Exam Description:XR WRIST MIN 3 VIEWS Stay [...] Mild soft tissue swelling about the wrist. ED Course Procedures X-ray shows arthritis of the carpal bones and carpometacarpal joint of the thumb. Fracture noted Plan: New Prescriptions No Prescriptions at Discharge. Patient will be dismissed. Turns out he is going to see his primary care provider tomorrow. He can prescribe an anti-inflammatory medication for him. Disposition: Data Unavailable dismiss MDM dismiss This visit occurred during a National Public Health Emergency due to the SARS-CoV-2 Pandemic. I performed this consultation in person. PPE I used included [id number]. Rickey Bailey DO 09/08/201844 * Kellie Ng RN - 09/08/2020 5:02 PM CDT Patient arrives ambulatory, accompanied by , arriving via POV. Patient states that he noticed his left wrist a week ago getting much stiffer and more painful., hitting his wrist about a month agowith a hammer, and then the last week it has been getting progressively more stiff, until today, hecan' flex or extend his wrist. Patient c/o increased pain to left wrist also. documented in this encounter Plan of Treatment Not on file documented as of this encounter Goals Goal Patient Goal Type Associated Problems Recent Progress Patient-Stated? Author Blood Pressure < 140/90 Blood Pressure 134/86(2022 2:25 PM CDT) No Leonard Jasso, ANGIE documented as of this encounter Procedures Procedure Name Priority Date/Time Associated Diagnosis Comments XR WRIST MIN 3 VIEWS STAT 09/08/2020 5:20 PM CDT documented in this encounter Results * XR Wrist Min 3 Views L (09/08/2020 5:20 PM CDT) Anatomical Region Laterality Modality Forearm, Wrist, Hand Computed Ra diography 09/08/2020 6:36 PM CDT Impressions 09/08/2020 6:37 PM CDT No gross acute osseous abnormality of the left wrist. THIS IS AN ELECTRONICALLY VERIFIED FINAL REPORT 09/08/2020 6:37 PM - Electronically signed by Saul Douglas M.D. AG: SHERRY D: ??09/08/2020 6:37 PM T: ??09/08/2020 6:37 PM Report ID: [id number] Reading Location: ??[id number] Narrative 09/08/2020 6:37 PM CDT [address] [place] [address] Patient Name:EDILBERTO DURAND ?Accession Number: [id number] Patient ID Number:[id number] ?Approval Date: 09/08/2020 6:37 PM Date of :1955 ? Imaging Date: 09/08/2020 Gender:M ?Referring Physician:RICKEY BAILEY Exam Description:XR WRIST MIN 3 VIEWS ??Stay Type: EXAM DESCRIPTION: ?? XR WRIST MIN 3 VIEWS REASON FOR STUDY: ??Increased pain and stiffness to Left wrist x 1 week. States being hit in Lt wrist with a hammer about 4 weeks ago. Indicates pain throughout with focus to proximal 1st carpalDuration: 1 week TECHNIQUE: ?? Frontal, lateral, and oblique radiographic views acquired of the ?? left wrist. COMPARISON: ?? 01/18/2019 FINDINGS: ??Unchanged ulnar negative variance. ??Alignment is otherwise normal. ?? No definite fracture. ??Moderate radiocarpal joint osteoarthritis. ??Severe basal joint thumb osteoarthritis. ??Mild soft tissue swelling about the wrist. Procedure Note Saul Douglas MD - 09/08/[address] [place] [address] Patient Name:EDILBERTO DURAND Accession Number: [id number] Patient ID Number:[id number] Approval Date: 09/08/2020 6:37 PM Date of :1955 Imaging Date: 09/08/2020 Gender:M Referring Physician:RICKEY BAILEY Exam Description:XR WRIST MIN 3 VIEWS Stay Type: EXAM DESCRIPTION: XR WRIST MIN 3 VIEWS REASON FOR STUDY: Increased pain and stiffness to Left wrist x 1 week.States being hit in Lt wrist with a hammer about 4 weeks ago. Indicates pain throughout with focus to proximal 1st carpalDuration: 1 week TECHNIQUE: Frontal, lateral, and oblique radiographic views acquired ofthe left wrist. COMPARISON: 01/18/2019 FINDINGS: Unchanged ulnar negative variance. Alignment is otherwisenormal. No definite fracture. Moderate radiocarpal joint osteoarthritis. Severe basal joint thumb osteoarthritis. Mild soft tissue swelling about thewrist. IMPRESSION: No gross acute osseous abnormality of the left wrist. THIS IS AN ELECTRONICALLY VERIFIED FINAL REPORT 09/08/2020 6:37 PM - Electronically signed by Saul Douglas M.D. AG: SHERRY Report ID: [id number] Reading Location: [place] [address] Rickey Bailey DO IMG DIAGNOSTIC IMAGING PASCUAL VARSHA Final Result documented in this encounter Visit Diagnoses Diagnosis Arthritis of left wrist- Primary Left wrist pain Pain in joint, forearm documented in this encounter Care Teams Public Safety Director Relationship Specialty Start Date End Date Leonard Jasso APRN [facility] [address] [place] [address] PCP - General Family Medicine 08/15/19 04/30/21 Lacey Perdue MD [address] [address] Referring Physician Infectious Diseases 06/28/18 documented as of this encounter
--- OUTSIDE RECORDS SUMMARY | 2024-11-23 00:28 | XMS_ITS | Encounter Summary ---
Author Organization [facility] Address [address] [place] [address] Care Team Providers Care Choir Director Name Role Phone Lacey Perdue MD Unavailable Leonard Jasso APRN Primary Care Provide r Reason for Visit * Reason Onset Date Comments No Show for COVID testing prior to procedure. Encounter Details Date Type Department Care Team (Late st Contact Info) Description 06/11/2020 Telephone [facility] [address] [facility], [address] [place] [address] Prerna Vicente, RN [address] [place] [address] No Show for COVID testing prior to procedure. Social History Tobacco Use Types Packs/Day Years [...] Author No 10/25/2017 2:00 PM Deonna Padilla, INFORMATION TECHNOLOGY SECURITY ANALYST * Are you blind or do you have serious difficulty seeing, even when wearing glasses? Answer Date of Assessment Author No 10/25/2017 2:00 PM JOHN Galvan Am y S, INFORMATION TECHNOLOGY SECURITY ANALYST * Do you have serious difficulty walking or climbing stairs? (5 years old or older) Answer Date of Assessment Author No 10/25/2017 2:00 PM JOHN Galvan Am y S, INFORMATION TECHNOLOGY SECURITY ANALYST * Do you have difficulty dressing or bathing? (5 years old or older) Answer Date of Assessment Author No 10/25/2017 2:00 PM Deonna Padilla S, INFORMATION TECHNOLOGY SECURITY ANALYST * Because of a physical, mental, or emotional condition, do you have difficulty doing errands alone such as visiting a doctor's office or shopping? (15 years old or older) Answer Date of Assessment Author No 10/25/2017 2:00 PM Deonna Padilla, INFORMATION TECHNOLOGY SECURITY ANALYST documented as of this encounter Mental Status * Because of a physical, mental, or emotional condition, do you have serious difficulty concentrating, remembering, or making decisions? (5 years old or older) Answer Entry Date Author No 10/25/2017 2:00 PM Deonna Padilla, INFORMATION TECHNOLOGY SECURITY ANALYST documented in this encounter Miscellaneous Notes * Telephone Encounter - Prerna Vicente RN - 06/11/2020 8:22 AM CDT ----- Message from Arabella Price RN sent at 06/10/2020 7:55 AM CDT ----- Regarding: cancelation Pt did not show up for covid test. Will need to reschedule pt for EGD. Thank you documented in this encounter Plan of Treatment Not on file documented as of this encounter Goals Goal Patient Goal Type Associated Problems Recent Progress Patient-Stated? Author Blood Pressure < 140/90 Blood Pressure 134/86(2022 2:25 PM CDT) No Leonard Jasso APRN documented as of this encounter Visit Diagnoses Not on filedocumented in this encounter Care Teams Choir Director Relationship Specialty Start Date End Date Leonard Jasso APRN [address] [facility] [address] [place] [address] PCP - General Family Medicine 08/15/19 04/30/21 Lacey Perdue MD [address] [address] Referring Physician Infectious Diseases 06/28/18 documented as of this encounter
--- OUTSIDE RECORDS SUMMARY | 2024-11-23 00:28 | XMS_ITS | Encounter Summary ---
Author Organization [facility] Address [address] [place] [address] Care Team Providers Care Emergency Department Clinician Name Role Phone Lacey Perdue MD Unavailable [phone] Leonard Jasso APRN Primary Care Provide r Reason for Visit * Reason Comments Medication Refill Encounter Details Date Type Department Care Team (Late st Contact Info) Description 08/16/[address] [address] Leonard Jasso, ANGIE [address] [place] [id number] Social History Tobacco Use Types Packs/Day [...] Author No 10/25/2017 2:00 PM Deonna Padilla, ELEVATOR REPAIRER HELPER * Are you blind or do you have serious difficulty seeing, even when wearing glasses? Answer Date of Assessment Author No 10/25/2017 2:00 PM Deonna Padilla, ELEVATOR REPAIRER HELPER * Do you have serious difficulty walking or climbing stairs? (5 years old or older) Answer Date of Assessment Author No 10/25/2017 2:00 PM Deonna Padilla, ELEVATOR REPAIRER HELPER * Do you have difficulty dressing or bathing? (5 years old or older) Answer Date of Assessment Author No 10/25/2017 2:00 PM Deonna Padilla, ELEVATOR REPAIRER HELPER * Because of a physical, mental, or emotional condition, do you have difficulty doing errands alone such as visiting a doctor's office or shopping? (15 years old or older) Answer Date of Assessment Author No 10/25/2017 2:00 PM Deonna Padilla, ELEVATOR REPAIRER HELPER documented as of this encounter Mental [...] on filedocumented in this encounter Care Teams Emergency Department Clinician Relationship Specialty Start Date End Date Leonard Jasso APRN [address] [facility] [address] [place] [address] PCP - General Family Medicine 08/15/19 04/30/21 Lacey Perdue MD [address] [address] Referring Physician Infectious Diseases 06/28/18 documented as of this encounter
--- OUTSIDE RECORDS SUMMARY | 2024-11-23 00:28 | XMS_ITS | Encounter Summary ---
Author Organization [employer] Address [address] [place] [address] Care Team Providers Care Tipple Repairer Name Role Phone Lacey Perdue MD Unavailable [phone] Leonard Jasso APRN Primary Care Provide r Reason for Referral * Referral (Routine) - Closed Specialty Diagnoses / Procedures Referred By Celine almaguer Referred To Contact General Surgery Diagnoses Calculus of gallbladder without cholecystitis without obstruction Leonard Jasso, CHILD CARE TEAM LEAD [address] [place] [address] Phone: tel: fax: Siddhartha Loyd MD [address] [place] [phone] Phone: tel: fax: Referral ID Status Reason Start Date Expiration Date V isits Requested Visits Authorized [id number] Closed Specialty Services Required 05/16/2020 05/16/2021 1 1 Reason for Visit * Reason Comments Results Ultrasound, A1c Encounter Details Date Type Department Care Team (Late st Contact Info) Description 05/16/2020 9:00 AM CDT Telemedicine [facility] [address] [place] [address] Leonard Jasso, CHILD CARE TEAM LEAD [address] [place] [address] Calculus of gallbladder without cholecystitis without obstruction (Primary Dx); Borderline diabetes Social History Tobacco Use Types Packs/Day Years [...] encounter Patient Instructions * Patient Instructions* Leonard Jasso, TIFFANI - 05/16/2020 9:00 AM CDT Images from the original note were not included. Follow up in 3 months to recheck A1C. Avoid concentrated sweets as discussed. Please follow up with surgeon as discussed to get his opinion in regard to galstones. Avoid spicey food or foods high in acid. Avoid caffeine if possible because caffeine increases stomach acid. Avoid tight clothing. Weight loss can help acid reflux also. Take medication daily as prescribed. Over the counter Maximum Strength Antacid Liquid as needed for breakthrough acid reflux symptoms. Follow up if condition is not resolved with treatment. Biliary Colic: Care Instructions Your Care Instructions Biliary (say [id number] ) colic is belly pain caused by gallbladder problems. It is usually caused by a gallstone moving through or blocking the common bile duct or cystic duct. Gallstones are stones that form in the gallbladder. They are made of cholesterol and other substances. The gallbladder is a small sac located just under the liver. It stores bile released by the liver. Bile helps you digest fats. Gallstones also can form in the common bile duct or cystic duct. These ducts carry bile from the gallbladder and the liver to the small intestine. Gallstones may be as small as a grain of sand or as large as a golf ball. Gallstones that cause severe symptoms usually are treated with surgery to remove the gallbladder. If the first attack of biliary colic is mild, it is often safe to wait until you have had another attack before you think about having surgery. The doctor has checked you carefully, but problems can develop later. If you notice any problems ornew symptoms, get medical treatment right away. Follow-up care is a whalen part of your treatment and safety. Be sure to make and go to all appointments, and call your doctor if you are having problems. It's also a good idea to know your test resultsand keep a list of the medicines you take. How can you care for yourself at home? ?? Take pain medicines exactly as directed. ? If the doctor gave you a prescription medicine for pain, take it as prescribed. ? If you are not taking a prescription pain medicine, ask your doctor if you can take an ghto-xdd-[id number] medicine. Read and follow all instructions on the label. ?? Avoid foods that cause symptoms, especially fatty foods. These can cause biliary colic. ?? You may need more tests to look at your gallbladder. When should you call for help? Call your doctor now or seek immediate medical care if: ? You have a fever. ? You have new belly pain, or your pain gets worse. ? There is a new or increasing yellow tint to your skin or the whites of your eyes. ? Your urine is dark yellow-brown, or your stools are light-colored or white. ? You cannot keep down fluids. ??Watch closely for changes in your health, and be sure to contact your doctor if: ? You do not get better as expected. ? You are not getting better after 1 day (24 hours). Where can you learn more? Go to the Search Medical Library option found under the Resources tab in [employer] [email or web address]://[email or web address].getbetter!/OneStopWeb. If you do not have access to [employer]Pub, you can visit [email or web address] and select makexyz from the menu on the left. Enter X038 in the search box to learn more about Biliary Colic: Care Instructions. Not on MoPub? Go to [email or web address]!/OneStopWeb and click the Sign Up Now link to request an activation code. Current as of: June 25, 2019Content Version: 12.4 ?? [id number] [employer]. Care instructions adapted under license by your healthcare professional. This care instruction is for use with your licensed healthcare professional. If you have questions about a medical condition or this instruction, always ask your healthcare professional. [employer] disclaims any warranty or liability for your use of this information. documented in this encounter Progress Notes * Leonard Jasso APNP - 05/16/2020 9:00 AM CDT Chief Complaint Patient presents with ??? Results Ultrasound, A1c [facility] [address] [facility] [address] Dept: [phone] Dept Loc: [phone] Loc Date: 05/16/2020 Name: Edilberto Hawley : 1955 PCP: TIFFANI Galeano Subjective: Patient ID: Edilberto Hawley is a 64 y.o. male. I performed this encounter using an audio/visual call between my office and the patient???s home. This encounter lasted 11-20 minutes spent with the patient in medical discussion. Verbal consent has been obtained from the patient to conduct an audio/video visit encounter to reduce the spread of COVID-19. Telehealth to discuss US and A1C results. Pt states addition of PPI helped GI pain significantly per pt. OTHER: No other significant findings. IMPRESSION: 1. Cholelithiasis without evidence of cholecystitis. 2. The liver has normal echogenicity and contour. Mild hepatomegaly with liver length 16.5 cm. 3. No intrahepatic or extrahepatic ductal dilatation identified. THIS IS AN ELECTRONICALLY VERIFIED FINAL REPORT 05/15/2020 2:32 PM - Electronically signed by Saul Argueta M.D. Explained need to pt for referral to General Surgeon for opinion. Pt agreeable. Recent A1C 6.2. Pt does complain of low blood sugars at time and needs candy to feel better. Explained need to avoid concentrated sweets and follow low carb diet. Pt admits to sweet tooth and eats sweets frequently. Recheck A1C 3 months. History provided by: Patient Patient's medications, allergies, [...] Negative for agitation and behavioral problems. Objective: There were no vitals taken for this visit., BMI There is no height or weight on file to calculate BMI. Physical Exam Vitals signs and nursing note [...] abdominal tenderness. Hernia: No hernia is present. Skin: General: Skin is warm and dry. Neurological: Mental Status: He is alert and oriented to person, place, and time. Assessment/Plan: Problem List Items Addressed This Visit None Visit Diagnoses Calculus of gallbladder without cholecystitis without obstruction - Primary Relevant Orders Referral to General Surgery Borderline diabetes Follow up in 3 months to recheck A1C. Avoid concentrated sweets as discussed. Please follow up with surgeon as discussed to get his opinion in regard to galstones. Avoid spicey food or foods high in acid. Avoid caffeine if possible because caffeine increases stomach acid. Avoid tight clothing. Weight loss can help acid reflux also. Take medication daily as prescribed. Over the counter Maximum Strength Antacid Liquid as needed for breakthrough acid reflux symptoms. Follow up if condition is not resolved with treatment. Next Visit: Follow up in about 3 months (around 08/16/2020), or if symptoms worsen or fail to improve. Encounter of: 05/16/2020 Signed: TIFFANI Galeano 05/23/2020 10:06 AM documented in this encounter Plan of Treatment Scheduled Referrals Name Type Priority Associated Diagnoses Orde r Schedule Referral to General Surgery Outpatient Referral Routine Calculus of gallbladder without cholecystitis without obstruction Ordered: 05/16/2020 documented as of this encounter Goals Goal [...] glucose documented in this encounter Care Teams Tipple Repairer Relationship Specialty Start Date End Date Leonard Jasso, CHILD CARE TEAM LEAD [address] [facility] [address] [place] [address] PCP - General Family Medicine 08/15/19 04/30/21 Lacey Perdue MD [address] [phone] Referring Physician Infectious Diseases 06/28/18 documented as of this encounter
--- OUTSIDE RECORDS SUMMARY | 2024-11-23 00:28 | XMS_ITS | Encounter Summary ---
Author Organization [employer] Address [address] [place] [address] Care Team Providers Care Dosier Operator Name Role Phone Lacey Perdue MD Unavailable [phone] Leonard Jasso APRN Primary Care Provide r Reason for Visit * Reason Onset Date Comments Medication Refill 07/17/2020 Encounter Details Date Type Department Care Team (Late st Contact Info) Description 07/17/2020 Refill [facility] [address] [place], [place] [id number] Maxine Howell, [facility] [address] [facility] [address] [place], [place] [phone] Social History Tobacco Use Types Packs/Day Years [...] Author No 10/25/2017 2:00 PM Deonna Padilla, FREIGHT LOADING SUPERVISOR * Do you have serious difficulty walking or climbing stairs? (5 years old or older) Answer Date of Assessment Author No 10/25/2017 2:00 PM Deonna Padilla, FREIGHT LOADING SUPERVISOR * Do you have difficulty dressing or bathing? (5 years old or older) Answer Date of Assessment Author No 10/25/2017 2:00 PM Deonna Padilla, FREIGHT LOADING SUPERVISOR * Because of a physical, mental, or emotional condition, do you have difficulty doing errands alone such as visiting a doctor's office or shopping? (15 years old or older) Answer Date of Assessment Author No 10/25/2017 2:00 PM Deonna Padilla, FREIGHT LOADING SUPERVISOR documented as of this encounter Mental Status * Because of a physical, mental, or emotional condition, do you have serious difficulty concentrating, remembering, or making decisions? (5 years old or older) Answer Entry Date Author No 10/25/2017 2:00 PM Deonna Padilla, FREIGHT LOADING SUPERVISOR documented in this encounter Plan of Treatment Not on file documented as of this encounter Goals Goal Patient Goal Type Associated Problems Recent Progress Patient-Stated? Author Blood Pressure < 140/90 Blood Pressure 134/86(2022 2:25 PM CDT) No Leonard Jasso APRN documented as of this encounter Visit Diagnoses Not on filedocumented in this encounter Care Teams Dosier Operator Relationship Specialty Start Date End Date Leonard Jasso APRN [address] [facility] [address] [place] [address] PCP - General Family Medicine 08/15/19 04/30/21 Lacey Perdue MD [address] [phone] Referring Physician Infectious Diseases 06/28/18 documented as of this encounter
--- OUTSIDE RECORDS SUMMARY | 2024-11-23 00:29 | XMS_ITS | Encounter Summary ---
Author Organization [employer] Address [address] [place] [address] Care Team Providers Care Sap Enterprise Portal Consultant Name Role Phone Lacey Perdue MD Unavailable [phone] Leonard Jasso APRN Primary Care Provide r Reason for Visit * Reason Comments Back Pain MRI f/u Encounter Details Date Type Department Care Team (Late st Contact Info) Description 09/06/2019 8:45 AM CDT Office Visit [address] [phone] Leonard Jasso, ANGIE [address] [place] [phone] Chronic bilateral low back pain without sciatica [...] Sign Reading Time Taken Comments Blood Pressure 128/76 09/06/2019 8:14 AM CDT Pulse 74 09/06/2019 8:14 AM CDT Temperature 36.8 ??C (98.3 ??F) 09/06/2019 8:14 AM CD T Respiratory Rate 20 09/06/2019 8:14 AM CDT Oxygen Saturation 98% 09/06/2019 8:14 AM CDT Inhaled Oxygen Concentration - - Weight 86.7 kg (191 lb 1.6 oz) 09/06/2019 8:14 A M CDT Height 180.3 cm (5' 11 ) 09/06/2019 8:14 AM CDT Body Mass Index 26.65 09/06/2019 8:14 AM CDT documented in this encounter Functional Status * Are you deaf or do you have serious difficulty hearing? Answer Date of Assessment Author No 10/25/2017 2:00 PM Deonna Padilla, CRM CONSULTANT * Are you blind or do you have serious difficulty seeing, even when wearing glasses? Answer Date of Assessment Author No 10/25/2017 2:00 PM Deonna Padilla, CRM CONSULTANT * Do you have serious difficulty walking or climbing stairs? (5 years old or older) Answer Date of Assessment Author No 10/25/2017 2:00 PM Deonna Padilla, CRM CONSULTANT * Do you have difficulty dressing or bathing? (5 years old or older) Answer Date of Assessment Author No 10/25/2017 2:00 PM Deonna Padilla, CRM CONSULTANT * Because of a physical, mental, or emotional condition, do you have difficulty doing errands alone such as visiting a doctor's office or shopping? (15 years old or older) Answer Date of Assessment Author No 10/25/2017 2:00 PM Deonna Padilla, CRM CONSULTANT documented as of this encounter Mental Status * Because of a physical, mental, or emotional condition, do you have serious difficulty concentrating, remembering, or making decisions? (5 years old or older) Answer Entry Date Author No 10/25/2017 2:00 PM Deonna Padilla, CRM CONSULTANT documented in this encounter Patient Instructions * Patient Instructions* Leonard Jasso APNP - 09/06/2019 8:45 AM CDT Please keep appt. With Pain Specialist. Keep appt.'s with wound clinic and Orthopedics. I recommend you follow instructions of Orthopedics in regard to your right lateral ankle wound and bone infection. Follow up in 3 months or as needed. documented in this encounter Progress Notes * Leonard Jasso APNP - 09/06/2019 8:45 AM CDT Chief Complaint Patient presents with ??? Back Pain MRI f/u [address] [address] Dept: [phone] Dept Loc: [phone] Loc Date: 09/06/2019 Name: Edilberto Hawley : 1955 PCP: TIFFANI Galeano Subjective: Patient ID: Edilberot Hawley is a 63 y.o. male. Reviewed MRI report with pt during visit. Explained recommendation to see Dr. Gann at [facility] [place]. History provided by: Patient Back Pain This is a chronic problem. The current episode started more than 1 year ago. The problem occurs intermittently. The problem has been unchanged. Pertinent negatives include no abdominal pain, arthralgias, change in bowel habit, chest pain, chills, congestion, coughing, diaphoresis, fatigue, fever, headaches, nausea, neck pain, numbness, rash, sore throat, urinary symptoms, vertigo, visual change, [...] pain. Negative for arthralgias and neck pain. Skin: Positive for wound (Right lateral ankle. ). Negative for rash. Allergic/Immunologic: Negative for environmental allergies and food allergies. Neurological: Negative for dizziness, vertigo, seizures, syncope, weakness, numbness and headaches. Psychiatric/Behavioral: Negative for agitation and behavioral problems. All other systems reviewed and are negative. Objective: Blood pressure 128/76, pulse 74, temperature 36.8 ??C (98.3 ??F), temperature source Tympanic, resp. rate 20, height 1.803 m (5' 11 ), weight 86.7 kg (191 lb 1.6 oz), SpO2 98 %., BMI Body mass index is 26.65 kg/m??. Physical Exam Vitals signs and nursing note reviewed. Constitutional: General: He is not in acute distress. Appearance: He is well-developed. He is not diaphoretic. HENT: Head: Normocephalic and atraumatic. Eyes: [...] Abdomen is soft. Tenderness: There is no tenderness. Genitourinary: Penis: Circumcised. Musculoskeletal: Lumbar back: [...] General: Skin is warm and dry. Comments: Lateral aspect of right ankle wound remains. 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 Pt having difficult time coming to terms with having a repeat procedure. States recovery is long and it really has affected his mood. Neurological: Mental Status: He is alert and oriented to person, place, and time. Psychiatric: Mood and Affect: Mood normal. Behavior: Behavior normal. Thought Content: Thought content normal. Judgment: Judgment normal. Assessment/Plan: Problem List Items Addressed This Visit None Visit Diagnoses Chronic bilateral low back pain without sciatica - Primary Relevant Orders Referral to Pain Management Degenerative lumbar spinal stenosis Relevant Orders Referral to Pain Management Please keep appt. With Pain Specialist. Keep appt.'s with wound clinic and Orthopedics. I recommend you follow instructions of Orthopedics in regard to your right lateral ankle wound and bone infection. Follow up in 3 months or as needed. Next Visit: Follow up in about 3 months (around 12/07/2019), or if symptoms worsen or fail to improve. Encounter of: 09/06/2019 Signed: TIFFANI Galeano 09/11/2019 9:38 AM documented in this encounter Miscellaneous Notes * Addendum Note - Judy Rodgers LPN - 09/06/2019 8:45 AM CDTAddended by: JUDY RODGERS on: 07/29/2020 11:24 AM Modules accepted: Orders documented in this encounter [...] claudication documented in this encounter Care Teams Sap Enterprise Portal Consultant Relationship Specialty Start Date End Date Leonard Jasso APRN [address] [place] [address] PCP - General Family Medicine 08/15/19 04/30/21 Lacey Perdue MD [address] [phone] Referring Physician Infectious Diseases 06/28/18 documented as of this encounter
--- OUTSIDE RECORDS SUMMARY | 2024-11-23 00:29 | XMS_ITS | Encounter Summary ---
Author Organization [employer] Address [address] [place] [address] Care Team Providers Care Child Life Assistant Name Role Phone Denny Dey DO Unavailable [phone] Lacey Perdue MD Unavailable [phone] Leonard Jasso APRN Primary Care Provide r Reason for Visit * Reason Onset Date Comments Colonoscopy prep 12/02/2018 Encounter Details Date Type Department Care Team (Late st Contact Info) Description 12/02/2018 Telephone [facility] [address], [address] [place] [address] Zenaida Clifton, RN [address] [place] [phone] Colonoscopy prep Social History Tobacco Use Types Packs/Day Years [...] of Assessment Author No 10/25/2017 2:00 PM RAILROAD DINING CAR STEWARDESS Galvan, Am y S, SUPERVISOR NATURAL GAS PLANT * Are you blind or do you have serious difficulty seeing, even when wearing glasses? Answer Date of Assessment Author No 10/25/2017 2:00 PM RAILROAD DINING CAR STEWARDESS Deonna Galvan S, SUPERVISOR NATURAL GAS PLANT * Do you have serious difficulty walking or climbing stairs? (5 years old or older) Answer Date of Assessment Author No 10/25/2017 2:00 PM RAILROAD DINING CAR STEWARDESS Deonna Galvan y S, SUPERVISOR NATURAL GAS PLANT * Do you have difficulty dressing or bathing? (5 years old or older) Answer Date of Assessment Author No 10/25/2017 2:00 PM RAILROAD DINING CAR STEWARDESS Deonna Galvan y S, SUPERVISOR NATURAL GAS PLANT * Because of a physical, mental, or emotional condition, do you have difficulty doing errands alone such as visiting a doctor's office or shopping? (15 years old or older) Answer Date of Assessment Author No 10/25/2017 2:00 PM Deonna Padilla S, SUPERVISOR NATURAL GAS PLANT documented as of this encounter Mental Status * Because of a physical, mental, or emotional condition, do you have serious difficulty concentrating, remembering, or making decisions? (5 years old or older) Answer Entry Date Author No 10/25/2017 2:00 PM Deonna Padilla S, SUPERVISOR NATURAL GAS PLANT documented in this encounter Miscellaneous Notes * Telephone Encounter - Zenaida Clifton RN - 12/02/2018 11:34 AM RAILROAD DINING CAR STEWARDESS Pt showed to clinic to warp picker his colon prep for scheduled procedure. Prep instructions had been given at consult appointment, but again reiterated today. Pt verbalized understanding and stated he would call with questions. ROAD DINING CAR STEWARDESS documented in this encounter Plan of Treatment Not on file documented as of this encounter Goals Goal Patient Goal Type Associated Problems Recent Progress Patient-Stated? Author Blood Pressure < 140/90 Blood Pressure 134/86(2022 2:25 PM CDT) No Leonard Jasso APRN documented as of this encounter Visit Diagnoses Not on filedocumented in this encounter Care Teams Child Life Assistant Relationship Specialty Start Date End Date Leonard Jasso APRN [address] [place] [address] PCP - General Family Medicine 11/25/18 08/14/19 Denny Dey DO Referring Physician Orthopedic Surgery 06/28/18 9 Lacey Perdue MD [address] [phone] Referring Physician Infectious Diseases 06/28/18 documented as of this encounter
--- OUTSIDE RECORDS SUMMARY | 2024-11-23 00:29 | XMS_ITS | Encounter Summary ---
Author Organization [employer] Address [address] [place] [address] Care Team Providers Care Cotton Tipper Name Role Phone Lacey Perdue MD Unavailable [phone] Leonard Jasso APRN Primary Care Provide r Reason for Visit * Reason Onset Date Comments Results 09/01/2019 MRI Encounter Details Date Type Department Care Team (Late st Contact Info) Description 09/01/[address] [address] Zoey Seaman, CHIEF GROWTH OFFICER [address] [facility] [address] [place] [address] Results (MRI ) Social History Tobacco Use Types Packs/Day [...] Assessment Author No 10/25/2017 2:00 PM OPTICAL LENS MANUFACTURING TECH Galvan, Am y S, SOFTWARE IMPLEMENTATION SPECIALIST * Do you have serious difficulty walking or climbing stairs? (5 years old or older) Answer Date of Assessment Author No 10/25/2017 2:00 PM Deonna Padilla S, SOFTWARE IMPLEMENTATION SPECIALIST * Do you have difficulty dressing or bathing? (5 years old or older) Answer Date of Assessment Author No 10/25/2017 2:00 PM Deonna Padilla S, SOFTWARE IMPLEMENTATION SPECIALIST * Because of a physical, mental, or emotional condition, do you have difficulty doing errands alone such as visiting a doctor's office or shopping? (15 years old or older) Answer Date of Assessment Author No 10/25/2017 2:00 PM Deonna Padilla S, SOFTWARE IMPLEMENTATION SPECIALIST documented as of this encounter Mental Status * Because of a physical, mental, or emotional condition, do you have serious difficulty concentrating, remembering, or making decisions? (5 years old or older) Answer Entry Date Author No 10/25/2017 2:00 PM Deonna Padilla, SOFTWARE IMPLEMENTATION SPECIALIST documented in this encounter Miscellaneous Notes * Telephone Encounter - Zoey Seaman LPN - 09/01/2019 8:03 AM CDT Patient notified and appt scheduled for 09/06/19 * Telephone Encounter - Zoey Seaman LPN - 09/01/2019 8:02 AM CDT ----- Message from TIFFANI Galeano sent at 08/30/2019 11:26 AM CDT ----- Multilevel changes and patient lumbar spine. Need to see to discuss findings at visit. documented in this encounter Plan of Treatment Not on file documented as of this encounter Goals Goal Patient Goal Type Associated Problems Recent Progress Patient-Stated? Author Blood Pressure < 140/90 Blood Pressure 134/86(2022 2:25 PM CDT) No Leonard Jasso APRN documented as of this encounter Visit Diagnoses Not on filedocumented in this encounter Care Teams Cotton Tipper Relationship Specialty Start Date End Date Leonard Jasso APRN [address] [facility] [address] [place] [address] PCP - General Family Medicine 08/15/19 04/30/21 Lacey Perdue MD [address] [phone] Referring Physician Infectious Diseases 06/28/18 documented as of this encounter
--- OUTSIDE RECORDS SUMMARY | 2024-11-23 00:29 | XMS_ITS | Encounter Summary ---
Author Organization [employer] Address [address] [place] [address] Care Team Providers Care Warehouse Assistant Name Role Phone Denny Dey DO Unavailable [phone] Lacey Perdue MD Unavailable Leonard Jasso APRN Primary Care Provide r Reason for Visit * Auth/Cert Specialty Diagnoses / Procedures Referred By Celine almaguer Referred To Contact Diagnoses PERSONAL HISTORY OF COLON POLYPS Procedures ENDO - COLONOSCOPY; BIOPSY; POLYPECTOMY Referral ID Status Reason Start Date Expiration Date Visits Re quested Visits Authorized [id number] 1 1 Encounter Details Date Type Department Care Team (Late st Contact Info) Description 12/07/2018 11:00 AM LIVING COACH - 12/07/2018 12:00 PM [facility] [address] [place] [id number] Siddhartha Loyd MD [address] [place] [address] ENDO - COLONOSCOPY Surgery Details Date/Time Status Location OR Service Patient Class Case Class Case Type Trauma Case? 12/07/2018 11:00 AM Posted [facility] Outpatient Procedure/Ag talib Panel 1 Procedure LRB Anes Op Region Wound Class Comments ENDO - COLONOSCOPY N/A MAC Surgeon Surgeon Role Service Panel Siddhartha Loyd [...] Sign Reading Time Taken Comments Blood Pressure 114/72 12/07/2018 10:12 AM LIVING COACH Pulse 60 12/07/2018 10:12 AM LIVING COACH Temperature 36.8 ??C (98.3 ??F) 12/07/2018 10:[address] Respiratory Rate 18 12/07/2018 10:12 AM LIVING COACH Oxygen Saturation 97% 12/07/2018 10:12 AM LIVING COACH Inhaled Oxygen Concentration - - Weight 89.4 kg (197 lb) 12/07/2018 7:50 AM LIVING COACH Height 180.3 cm (5' 11 ) 12/07/2018 7:50 AM LIVING COACH Body Mass Index 27.48 12/07/2018 7:50 AM LIVING COACH documented in this encounter Functional Status * [...] Entry Date Author No 10/25/2017 2:00 PM LIVING COACH Deonna Galvan ARNP documented in this encounter Medications at Time of Discharge Probiotic Product (SOLUBLE FIBER/PROBIOTICS PO) Take 1 tablet by mouth daily. amitriptyline (ELAVIL) 75 MG tablet TAKE ONE TABLET NIGHTLY 30 tablet 5 11/23/2018 05/05/2019 baclofen (LIORESAL) 10 MG tablet Take 1 tablet by mouth nightly. 30 tablet 5 08/09/2018 03/03/2019 ciprofloxacin (CIPRO) 750 MG tablet Take 750 mg by mouth 2 (two) times daily. 12/19/2018 Diclofenac Sodium 1 % CREA Place onto the skin nightly as needed. 01/15/2021 DULoxetine (CYMBALTA) 60 MG capsule Take 1 capsule by mouth daily. 30 capsule 1 10/30/2017 05/05/2019 ibuprofen (ADVIL,MOTRIN) 800 MG tablet Take 1 tablet by mouth every 8 (eight) hours as needed for Pain. 100 tablet 08/02/2018 05/10/2020 morphine (MS CONTIN) 30 MG extended release tablet Take 1 tablet by mouth every 12 (twelve) hours Earliest Fill Date: 12/02/18. 60 tablet 12/02/2018 01/03/2019 naloxone (NARCAN) 2 MG/2ML injection USE DIRECTED 2 mL 2 11/25/2018 01/15/2020 oxyCODONE-acetam inophen (PERCOCET) 10-325 MG per tablet Take 1 tablet by mouth every 6 (six) hours as needed for Pain Earliest Fill Date: 12/02/18. 120 tablet 12/02/2018 01/03/2019 tamsulosin HCl (FLOMAX) 0.4 MG capsule Take 1 capsule by mouth daily. 30 capsule 5 11/04/2018 01/15/2021 documented as of this encounter H&P Notes * Siddhartha Loyd MD - 12/07/2018 8:46 AM CST Patient seen/examined. No change in Physical Exam, Review of Systems or Plan. NG COACH * Siddhartha Loyd MD - 12/07/2018 8:45 AM CST Images from the original note were not included. Siddhartha Loyd MD General Surgery Expand All Collapse All []Hide copied text []Hover for attribution information Surgical Services History and Physical ?? Name: Edilberto Hawley Date of : 1955 Age: 63 y.o. Sex: male Patient's Primary Care Physician: TIFFANI Galeano Referred by: Leonard Jasso, * ?? This is a [place] patient. ? Chief Complaint: Chief Complaint Patient presents with ??? Initial Consult ? Pt here to consult for a colonoscopy Initial Consult (Pt here to consult for a colonoscopy) ? HPI: 63 y.o. male presents today to discuss colonoscopy. The patient has a personal history of colon polyps. He has had multiple colonoscopies in the past with polypectomy. He denies any previous polyps having malignancy. He denies any personal history of colon or gastric carcinoma. He denies any family history of GI malignancy. He denies any persistent abdominal pain. He denies any significant change in his bowel movements. He denies any history of hematochezia or melena. He is on no blood thinners. He is here for further exam and care. ? Past Medical History: No Known Allergies ?? Past??Medical??History Past Medical History: Diagnosis Date ??? Arthritis ? Back injury ? Chronic back pain greater than 3 months duration ? Migraines ? Osteomyelitis of ankle or foot, acute, right (HCC) 2017 ?? Stepped on nail ??? Shoulder injury ? Substance abuse (HCC) ? cocaine, crystal meth nothing since 1996 ??? Wrist disorder ? R frzn wrist, 2 screws ?? Past??Surgical??History Past Surgical History: Procedure Laterality Date ??? Elbow surgery Left ? metal plate from elbow to forearm ??? Fracture surgery Left ? no sx ??? Incision and drainage foot Right ? Infection right foot and ankle ??? Joint replacement Left ? Left hip replacement ??? Rotator cuff repair Left ? Shoulder surgery Right ? repair tendon ??? Spine surgery ? 3 4 5 lumbar, pinched nerves ?? Social??History Social History ?? Social History ??? Marital status: ? Spouse name: Javier ??? Number of children: 3 ??? Years of education: N/A ?? Occupational History ??? Retired ? Social History Main Topics ??? Smoking status: Never Smoker ??? Smokeless tobacco: Never Used ??? Alcohol use No ??? Drug use: Yes ? Types: Hydrocodone, Morphine ? Comment: Arthritis pain ??? Sexual activity: Not on file ?? Other Topics Concern ??? Caffeine Use Yes ? 2 cans coke weekly ??? Exercise No ??? Special Diet No ?? Social History Narrative ??? No narrative on file ?? Family??History Family History Problem Relation Age of Onset ??? Dementia Mother ? Review of System: REVIEW OF SYSTEMS: ?? CONSTITUTIONAL: ??No recent weight loss or gain. HEENT: ??Head, no headaches. ??Eyes, no vision changes. ??Ears, no hearing changes. Nose, no excessive rhinorrhea. ??Mouth and throat, no tenderness or lesions in the oral cavity. NECK: ??No pain or stiffness. RESPIRATORY: ??Denies shortness of breath. ??No sleep apnea. CARDIOVASCULAR: ??No chest pain. ??No pacemaker. GASTROINTESTINAL: ??No nausea or vomiting. ??No diarrhea or constipation. ??No blood in the stool. GENITOURINARY: ??No frequency or burning with urination. ??No hematuria. NEUROMUSCULAR: Grossly intact. No obvious abnormality noted. ENDOCRINE: ??No hot or cold intolerance. ??No excessive bruising or bleeding. INTEGUMENTARY: ?? Patient has an open wound on his right foot. Is currently being treated by wound clinic. The rest of review of systems is unremarkable. ?? Physical Examination: Vitals Vitals: ?? 12/01/18 0915 BP: 110/76 Pulse: 96 Resp: 18 Temp: 36.2 ??C (97.2 ??F) TempSrc: Tympanic SpO2: 94% Weight: 89.6 kg (197 lb 9.6 oz) Height: 1.803 m (5' 11 ) ?? Body mass index is 27.56 kg/m??. ?? GENERAL: 63-year-old in no apparent distress. Vital signs stable. CHEST: Lungs are clear to auscultation. Good air movement. No palpation or masses on palpation of the chest wall. HEART: Regular rate and rhythm on auscultation. No murmurs or rubs noted. ABDOMEN: Positive bowel sounds. Soft and nontender on palpation. No guarding or rebound noted. No masses organomegaly noted. EXTREMITIES: Normal strength and tone. ?? LAB AND RADIOLOGY: ?? Hospital Outpatient Visit on 11/14/2018 Component Date Value ??? Sodium 11/14/2018 138 ??? Potassium 11/14/2018 4.8 ??? Chloride 11/14/2018 103 ??? CO2 11/14/2018 26 ??? Glucose 11/14/2018 109* ??? BUN 11/14/2018 9 ??? Creatinine, Serum 11/14/2018 0.91 ??? Calcium 11/14/2018 9.4 ??? Total Protein 11/14/2018 7.0 ??? Albumin 11/14/2018 3.8 ??? Bilirubin Total 11/14/2018 0.5 ??? Alkaline Phosphatase 11/14/2018 95 ??? AST 11/14/2018 47* ??? ALT 11/14/2018 63 ? ? EGFR Non-/[place] Korean 11/14/2018 >60 ? ? EGFR /[place] Korean 11/14/2018 >60 ??? Vancomycin Trough 11/14/2018 10.8* ??? CRP 11/14/2018 1.30* Hospital Outpatient Visit on 11/11/2018 Component Date Value ??? Sodium 11/11/2018 137 ??? Potassium 11/11/2018 4.2 ??? Chloride 11/11/2018 102 ??? CO2 11/11/2018 26 ??? Glucose 11/11/2018 162* ??? BUN 11/11/2018 13 ??? Creatinine, Serum 11/11/2018 0.93 ??? Calcium 11/11/2018 9.0 ? ? EGFR Non-/[place] Korean 11/11/2018 >60 ? ? EGFR /[place] Korean 11/11/2018 >60 ??? Vancomycin Trough 11/11/2018 7.1 Hospital Outpatient Visit on 11/07/2018 Component Date Value ??? WBC 11/07/2018 7.32 ??? RBC 11/07/2018 5.30 ??? Hemoglobin 11/07/2018 15.8 ??? Hematocrit 11/07/2018 45.8 ??? MCV 11/07/2018 86.4 ??? MCH 11/07/2018 29.8 ??? MCHC 11/07/2018 34.5 ??? Platelets 11/07/2018 200 ??? RDW 11/07/2018 12.7 ??? MPV 11/07/2018 9.8 ??? Differential Type 11/07/2018 AUTOMATED DIFFERENTIAL ??? Neutrophil % 11/07/2018 58.5 ??? Lymphocytes % 11/07/2018 29.0 ??? Monocyte % 11/07/2018 8.9 ??? Eosinophils Relative % 11/07/2018 3.1 ??? Basophils % 11/07/2018 0.4 ??? Immature Neutro % 11/07/2018 0.1 ??? Neutrophils Absolute 11/07/2018 4.28 ??? Lymphocytes Absolute 11/07/2018 2.12 ??? Monos Absolute 11/07/2018 0.65 ??? Eosinophils Absolute Cou* 11/07/2018 0.23 ??? Basophils Absolute 11/07/2018 0.03 ??? Immature Neutro 11/07/2018 0.01 ??? Sodium 11/07/2018 139 ??? Potassium 11/07/2018 4.3 ??? Chloride 11/07/2018 103 ??? CO2 11/07/2018 24 ??? Glucose 11/07/2018 119* ??? BUN 11/07/2018 14 ??? Creatinine, Serum 11/07/2018 0.87 ??? Calcium 11/07/2018 9.2 ??? Total Protein 11/07/2018 7.1 ??? Albumin 11/07/2018 3.9 ??? Bilirubin Total 11/07/2018 0.4 ??? Alkaline Phosphatase 11/07/2018 94 ??? AST 11/07/2018 40* ??? ALT 11/07/2018 51 ? ? EGFR Non-/[place] Korean 11/07/2018 >60 ? ? EGFR /[place] Korean 11/07/2018 >60 ??? Sedimentation Rate 11/07/2018 25* ??? Vancomycin Trough 11/07/2018 9.9 Hospital Outpatient Visit on 11/04/2018 Component Date Value ??? Vancomycin Trough 11/04/2018 10.1* ??? Sodium 11/04/2018 141 ??? Potassium 11/04/2018 4.0 ??? Chloride 11/04/2018 106 ??? CO2 11/04/2018 26 ??? Glucose 11/04/2018 122* ??? BUN 11/04/2018 20* ??? Creatinine, Serum 11/04/2018 0.96 ??? Calcium 11/04/2018 9.3 ? ? EGFR Non-/[place] Korean 11/04/2018 >60 ? ? EGFR /[place] Korean 11/04/2018 >60 ? Impression and Plan: 63-year-old with personal history of colon polyps. I recommended colonoscopy. The risk and benefits of the procedure were explained in detail. The risk of anesthesia. The risk ofinjuring the bowel to manipulation of the scope ordering a biopsy process. The need for a bowel prep was explained. The patient understands, and wishes to proceed. He will be scheduled for colonoscopy. ?? The encounter diagnosis was Personal history of colonic polyps. ? Siddhartha Montgomery. MD [place], FACS NG COACH documented in this encounter Procedure Notes * Siddhartha Loyd MD - 12/07/2018 9:51 AM CST [facility] COLONOSCOPY PROCEDURE NOTE @TODAYSDATE@ Patient Name : Edilberto Hawley Referring Physician:TIFFANI Galeano Date of Surgery: @@ Surgeon: Siddahrtha Loyd MD Staff: @[facility]@ Type of anesthesia: MAC (Managed Anesthesia Care) IV Fluids & Medications: See Anesthesia Record Preoperative Diagnosis/ Indications: PERSONAL HISTORY OF COLON POLYPS Postoperative Diagnosis: see Impression Procedure: Procedure(s): ENDO - COLONOSCOPY Prior to procedure, a History & Physical was performed, and patient medications, allergies, sensitivities and vital signs had been reviewed. The risks and benefits of the procedure and the sedation options and risks were discussed with the patient and informed consent was obtained. The scope was passed under direct vision. The patient's blood pressure, pulse, and oxygen saturations were monitored continuously. The scope was introduced through the anus and advanced to the cecum, which was identified by the ileocecal valve. . The patient tolerated procedure well. The quality of the bowel preparation was Good. Rectal Exam: negative, prostate enlarged with a nodule on right lobe. Drains: None EBL: 2cc Complications: none Tissue removed/specimens: polyp removed by hot bx in AC and 50cm.* No specimens in log * Biopsies were taken as per the above collection information. Status: Stable Findings: Polyps noted in AC and 50 cm. Removed by hot bx. Scattered DDx in D/Sigmoid colon. IH noted on retroflex of scope. Impression:As above Recommendation: Follow up with me. 1 week. NG COACH documented in this encounter OR Notes * Op Note - Siddhartha Loyd MD - 12/08/2018 10:18 AM CST [facility] COLONOSCOPY PROCEDURE NOTE ? Patient Name : Edilberto Hawley Referring Physician:TIFFANI Galeano ?? Date of Surgery: 12-07-18 ?? Surgeon: Siddhartha Loyd MD Staff: @[facility]@ Type of anesthesia: MAC (Managed Anesthesia Care) IV Fluids & Medications: See Anesthesia Record ?? Preoperative Diagnosis/ Indications: PERSONAL HISTORY OF COLON POLYPS Postoperative Diagnosis: see Impression ?? Procedure: Procedure(s): ENDO - COLONOSCOPY ?? Prior to procedure, a History & Physical was performed, and patient medications, allergies, sensitivities and vital signs had been reviewed. The risks and benefits of the procedure and the sedation options and risks were discussed with the patient and informed consent was obtained. The scope was passed under direct vision. The patient's blood pressure, pulse, and oxygen saturations were monitored continuously. The scope was introduced through the anus and advanced to the cecum, which was identified by the ileocecal valve. . The patient tolerated procedure well. The quality of the bowel preparation was Good. ? Rectal Exam: negative, prostate enlarged with a nodule on right lobe. Drains: None EBL: 2cc Complications: none ?? Tissue removed/specimens: polyp removed by hot bx in AC and 50cm.* No specimens in log * Biopsies were taken as per the above collection information. ?? Status: Stable Findings: Polyps noted in AC and 50 cm. Removed by hot bx. Scattered DDx in D/Sigmoid colon. IH noted on retroflex of scope. ?? Impression:As above ?? Recommendation: Follow up with me. 1 week. NG COACH documented in this encounter Plan of Treatment Not on file documented as of this encounter Goals Goal Patient Goal Type Associated Problems Recent Progress Patient-Stated? Author Blood Pressure < 140/90 Blood Pressure 134/86(2022 2:25 PM CDT) No Leonard Jasso APRN documented as of this encounter Procedures Procedure Name Priority Date/Time Associated Diagnosis Comments PATHOLOGY/TISSUE SPECIMEN Routine 12/07/2018 9:35 AM LIVING COACH Endo - Colonoscopy 12/07/2018 9: 10 AM LIVING COACH PERSONAL HISTORY OF COLON POLYPS documented in this encounter Results * Pathology/Tissue Specimen (12/07/2018 9:35 AM LIVING COACH) Histology Tracking See scanned image in media arts professor. 12/14/2018 10:44 AM LIVING COACH [facility] Pathology (qualifier value) POLYP / Unknown 12/07/2018 10:11 AM LIVING COACH Pathology (qualifier value) POLYP / Unknown 12/07/2018 10:12 AM LIVING COACH us Siddhartha Loyd MD PATHOLOGY/CYTOLOGY ORDERABLES F inal Result [facility] [address] [place], [place] documented in this encounter Visit Diagnoses Not on filedocumented in this encounter Administered Medications Inactive Administered Medications - up to 3 most recent administrations Medication Order MAR Action Action Date Dose Rate Site lactated ringers infusion at 100 mL/hr, Intravenous, CONTINUOUS, Starting on Wed12/07/18 at 0800, For 60 days, Pre-op New Bag 12/07/2018 8:09 AM LIVING COACH 100 mL/hr documented in this encounter Active and Recently Administered Medications Times are shown in LIVING COACH. Continuous Medication Order 12/05/2018 12/06/2018 12/07/2018 lactated ringers infusion at 100 mL/hr, Intravenous, CONTINUOUS, Starting on Wed12/07/18 at 0800, For 60 days, Pre-op 0809 (New Bag - Prov ider: Iman Barrios LPN) documented in this encounter Care Teams Warehouse Assistant Relationship Specialty Start Date End Date Leonard Jasso APRN [address] [place] [address] PCP - General Family Medicine 11/25/18 08/14/19 Denny Dey DO Referring Physician Orthopedic Surgery 06/28/18 9 Lacey Perdue MD [address] [phone] Referring Physician Infectious Diseases 06/28/18 documented as of this encounter
--- OUTSIDE RECORDS SUMMARY | 2024-11-23 00:29 | XMS_ITS | Encounter Summary ---
Author Organization [employer] Address [address] [place] [address] Care Team Providers Care Solutions Developer Name Role Phone Denny Dey DO Unavailable [phone] Lacey Perdue MD Unavailable Leonard Jasso APRN Primary Care Provide r Reason for Visit * Reason Onset Date Comments Medication Refill 07/28/2019 Encounter Details Date Type Department Care Team (Late st Contact Info) Description 07/28/[address] [facility] [address] [place], [place] [id number] Anna Gordillo, RADIOLOGICAL HEALTH SPECIALIST [address] [facility] [address] [place], [place] [id number] Social History Tobacco Use Types Packs/Day Years [...] of Assessment Author No 10/25/2017 2:00 PM ELECTROLYSIS INVESTIGATOR Deonna Galvan, GEORGE * Are you blind or do you have serious difficulty seeing, even when wearing glasses? Answer Date of Assessment Author No 10/25/2017 2:00 PM Deonna Padilla, SQL REPORT WRITER * Do you have serious difficulty walking or climbing stairs? (5 years old or older) Answer Date of Assessment Author No 10/25/2017 2:00 PM Deonna Padilla, SQL REPORT WRITER * Do you have difficulty dressing or bathing? (5 years old or older) Answer Date of Assessment Author No 10/25/2017 2:00 PM Deonna Padilla, SQL REPORT WRITER * Because of a physical, mental, [...] on filedocumented in this encounter Care Teams Solutions Developer Relationship Specialty Start Date End Date Leonard Jasso APRN [address] [place] [id number] PCP - General Family Medicine 11/25/18 08/14/19 Denny Dey DO Referring Physician Orthopedic Surgery 06/28/18 9 Lacey Perdue MD [address] [phone] Referring Physician Infectious Diseases 06/28/18 documented as of this encounter
--- OUTSIDE RECORDS SUMMARY | 2024-11-23 00:29 | XMS_ITS | Encounter Summary ---
Author Organization [employer] Address [address] [place] [address] Care Team Providers Care Scientific Helper Name Role Phone Denny Dey DO Unavailable [phone] Lacey Perdue MD Unavailable Leonard Jasso APRN Primary Care Provide r Reason for Visit * Reason Onset Date Comments Medication Refill 06/30/2019 Encounter Details Date Type Department Care Team (Late st Contact Info) Description 06/30/2019 Refill [facility] [address] [place], [place] [id number] Zoey Seaman, POULTRY HUSBANDMAN [address] [facility] [address] [place], [place] [id number] Social History Tobacco Use Types Packs/Day Years [...] Author No 10/25/2017 2:00 PM Deonna Padilla, [place] [employer]SE[employer] * Do you have serious difficulty walking or climbing stairs? (5 years old or older) Answer Date of Assessment Author No 10/25/2017 2:00 PM Deonna Padilla, SW[employer] MASSEUSE * Do you have difficulty dressing or bathing? (5 years old or older) Answer Date of Assessment Author No 10/25/2017 2:00 PM Deonna Padilla, [place] [employer] * Because of a physical, mental, or [...] Telephone Encounter - Zoey Seaman LPN - 06/30/2019 11:16 AM CDT ----- Message from Mandi Padilla sent at 06/30/2019 11:02 AM CDT ----- Contact: Patient Patient called stating he is very pleased with the wound clinic in [place]. He is also requesting his refill of Oxycodone that will run out on Wednesday07/02/19. He also inquired if his order is still at the hospital for his back Xray as he wants to complete that. He can be reached at [phone]. Thank you Yani S documented in this encounter Plan of Treatment Not on file documented as of this encounter Goals Goal Patient Goal Type Associated Problems Recent Progress Patient-Stated? Author Blood Pressure < 140/90 Blood Pressure 134/86(2022 2:25 PM CDT) No Leonard Jasso APRN documented as of this encounter Visit Diagnoses Not on filedocumented in this encounter Care Teams Scientific Helper Relationship Specialty Start Date End Date Leonard Jasso APRN [address] [place] [address] PCP - General Family Medicine 11/25/18 08/14/19 Denny Dey DO Referring Physician Orthopedic Surgery 06/28/18 9 Lacey Perdue MD [address] [phone] Referring Physician Infectious Diseases 06/28/18 documented as of this encounter
--- OUTSIDE RECORDS SUMMARY | 2024-11-23 00:29 | XMS_ITS | Encounter Summary ---
Author Organization [facility] Address [address] [place] [address] Care Team Providers Care Flight Steward Name Role Phone Denny Dey DO Unavailable [phone] Lacey Perdue MD Unavailable [phone] Leonard Jasso APRN Primary Care Provide r Reason for Visit * Auth/Cert Specialty Diagnoses / Procedures Referred By Celine t Referred To Contact Diagnoses PERSONAL HISTORY OF COLON POLYPS Procedures ENDO - COLONOSCOPY; BIOPSY; POLYPECTOMY Referral ID Status Reason Start Date Expiration Date Visits Re quested Visits Authorized [id number] 1 1 Encounter Details Date Type Department Care Team (Late st Contact Info) Description 12/07/2018 9:10 AM DIRECT ENTRY MIDWIFE Anesthesia Event [facility] [address] [place] [address] Brenden Perez CRNA Anesthesia Record Procedure Summary Procedure Name Responsible Anesthesiologist Anesthesia Start Time Anesthesia Stop Time ENDO - COLONOSCOPY Events No events on file. Meds * [...] COVID-19? No / Unsure 12/23/2021 11:28 AM DIRECT ENTRY MIDWIFE documented as of this encounter Functional Status * Are you deaf or do you have serious difficulty hearing? Answer Date of Assessment Author No 10/25/2017 2:00 PM DIRECT ENTRY MIDWIFE Galvan, Am y S, BRAILLE CODER * Are you blind or do you have serious difficulty seeing, even when wearing glasses? Answer Date of Assessment Author No 10/25/2017 2:00 PM DIRECT ENTRY MIDWIFE Galvan, Am y S, BRAILLE CODER * Do you have serious difficulty walking or climbing stairs? (5 years old or older) Answer Date of Assessment Author No 10/25/2017 2:00 PM DIRECT ENTRY MIDWIFE Galvan, Am y S, BRAILLE CODER * Do you have difficulty dressing or bathing? (5 years old or older) Answer Date of Assessment Author No 10/25/2017 2:00 PM DIRECT ENTRY MIDWIFE Galvan, Am y S, BRAILLE CODER * Because of a physical, mental, or emotional condition, do you have difficulty doing errands alone such as visiting a doctor's office or shopping? (15 years old or older) Answer Date of Assessment Author No 10/25/2017 2:00 PM DIRECT ENTRY MIDWIFE Galvan, Am y S, BRAILLE CODER documented as of this encounter Mental Status * Because of a physical, mental, or emotional condition, do you have serious difficulty concentrating, remembering, or making decisions? (5 years old or older) Answer Entry Date Author No 10/25/2017 2:00 PM DIRECT ENTRY MIDWIFE Galvan, Am y S, BRAILLE CODER documented in this encounter OR Notes * Anesthesia Postprocedure Evaluation - Brenden Perez CRNA - 12/07/2018 10:12 AM CST Anesthesia Post-op Note Edilberto Hawley Procedure: Procedure(s) (LRB): ENDO - COLONOSCOPY (N/A) Anesthesia type: MAC Patient location: PACU Respiratory status: airway patent and respiratory status stable Cardiovascular function: cardiovascular function and hydration status is stable Post-op pain: Adequate analgesia Nausea and vomiting control: nausea and vomiting control is satisfactory Post-op assessment: no apparent anesthetic complications Level of consciousness: awake, alert and oriented Mental status recovery: patient participates in evaluation Post-op vital signs: stable Blood Pressure: 119/81 Pulse: 65 Respirations: 16 O2 Saturation: 97% Temperature: 36.8 ??C (98.3 ??F) (Tympanic) Complications: none Patient will be discharged from the PACU when they meet criteria. CT ENTRY MIDWIFE * Anesthesia Preprocedure Evaluation - Brenden Perez CRNA - 12/07/2018 8:58 AM CST Anesthesia Pre-Op Evaluation History of Present Illness: See H&P. No Known Allergies Prior to Admission Medications Last Dose amitriptyline (ELAVIL) 75 MG tablet 12/06/2018 at Unknown time TAKE ONE TABLET NIGHTLY baclofen (LIORESAL) 10 MG tablet Take 1 tablet by mouth nightly. Patient taking differently: Take 10 mg by mouth nightly Indications: PT. STATES ONLY TAKES NEEDED.. ciprofloxacin (CIPRO) 750 MG tablet 12/06/2018 at Unknown time Diclofenac Sodium 1 % CREA DULoxetine (CYMBALTA) 60 MG capsule 12/06/2018 at Unknown time Take 1 capsule by mouth daily. ibuprofen (ADVIL,MOTRIN) 800 MG tablet Take 1 tablet by mouth every 8 (eight) hours as needed for Pain. morphine (MS CONTIN) 30 MG extended release tablet 12/06/2018 at Unknown time Take 1 tablet by mouth every 12 (twelve) hours Earliest Fill Date: 12/02/18. naloxone (NARCAN) 2 MG/2ML injection USE DIRECTED oxyCODONE-acetaminophen (PERCOCET) 10-325 MG per tablet 12/06/2018 at Unknown time Take 1 tablet by mouth every 6 (six) hours as needed for Pain Earliest Fill Date: 12/02/18. Probiotic Product (SOLUBLE FIBER/PROBIOTICS PO) 12/06/2018 at Unknown time tamsulosin HCl (FLOMAX) 0.4 MG capsule 12/06/2018 at Unknown time Take 1 capsule by mouth daily. Current Facility-Administered Medications Medication Dose Route Frequency Provider Last Rate Last Dose ??? lactated ringers infusion Intravenous Continuous Siddhartha Loyd MD 100 mL/hr at 12/07/18 0809 Inpatient Beta Arely Administrations (last 72 hours) None Anesthesia ROS/Medical History Anticoagulant/Antiplatelet Therapy: Review of anticoagulant/antiplatelet is negative.. Patient/Family Anesthetic History: Review of patient/family anesthetic history is negative.. Patient Anesthetic History: Family Anesthetic History: Cardiovascular: Review of cardiovascular system is negative.. Pulmonary: Review of pulmonary system is negative.. Gastrointestinal: PH of polyps and Review of gastrointestinal system is negative.. Renal: Review of renal system is negative.. Endocrine: Review of endocrine system is negative.. Neurological: Positive for: chronic back pain, radiculopathy. Psychiatric/Mental State: Review of psychiatric/mental health system is negative.. Other: Positive for: arthritis. Past medical history was reviewed. NPO Status Date of Last Liquid: 12/07/18 Time of last liquid consumption: 0400 Date of Last Solid Food: 12/05/18 Time of last solid food consumption: 1800 Substance Use Topics ??? Smoking status: Never Smoker ??? Smokeless tobacco: Never Used ??? Alcohol use No Drug Use ??? Types: Hydrocodone, Morphine Comment: Arthritis pain Physical Exam BP: 119/81 (12/07 0950) Pulse: 65 (12/07 0950) Respiratory Rate: 16 (12/07 0850) SpO2: 97 % (12/07 0850) Temp: 36.8 ??C (98.3 ??F) (12/07 0950) Height: 180.3 cm (5' 11 ) (12/07 075) Weight: 89.4 kg (197 lb) (12/07 075) Body mass index is 27.48 kg/m??. Airway: Mallampati: II. Dental: No notable dental hx.Findings: lower dentures and upper dentures. Cardiovascular: Cardiovascular exam normal.Rhythm: regular.Rate: normal. Pulmonary: Pulmonary exam normal.Breath sounds clear to ascultation. Other Findings: Lab Results (last 6 months) CBC Recent Labs 11/07/18 1015 WBC 7.32 RBC 5.30 HGB 15.8 HCT 45.8 MCV 86.4 MCH 29.8 MCHC 34.5 RDW 12.7 PLT 200 Type & Screen No results for input(s): ABORH, LABANTI in the last 4320 hours. Basic Metabolic Panel Recent Labs 11/14/18 1100 NA 138 K 4.8 CL 103 CO2 26 GLU 109* BUN 9 CREATININE 0.91 CA 9.4 EGFRNAA >60 EGFRAA >60 POC Glucose No results for input(s): POCGMD in the last 4320 hours. (if applicable) No results for input(s): HCGSCREEN, URHCG, POCURHCG in the last 4320 hours. Diagnostic/Imaging Results Anesthesia Plan ASA Score: Plan: MAC. Plan discussed with: attending. Induction: Intravenous. Postop Analgesia: Per surgeon. Informed Consent: Anesthetic plan, postop analgesia plan, and risks discussed with patient. Anesthesia options and risks explained to patient, Patient (or parent/guardian) appears to have understood our discussion, All questions answered and Consent obtained. Risks Discussed: Medical Necessity: DNR Status: CT ENTRY MIDWIFE documented in this encounter Plan of Treatment Not on file documented as of this encounter Goals Goal Patient Goal Type Associated Problems Recent Progress Patient-Stated? Author Blood Pressure < 140/90 Blood Pressure 134/86(2022 2:25 PM CDT) No Leonard Jasso APRN documented as of this encounter Visit Diagnoses Not on filedocumented in this encounter Care Teams Flight Steward Relationship Specialty Start Date End Date Leonard Jasso APRN [address] [place] [address] PCP - General Family Medicine 11/25/18 08/14/19 Denny Dey DO Referring Physician Orthopedic Surgery 06/28/18 9 Lacey Perdue MD [address] [phone] Referring Physician Infectious Diseases 06/28/18 documented as of this encounter
--- OUTSIDE RECORDS SUMMARY | 2024-11-23 00:29 | XMS_ITS | Encounter Summary ---
Author Organization [employer] Address [address] [place] [address] Care Team Providers Care Ruling Machine Feeder Name Role Phone Denny Dey DO Unavailable [phone] Lacey Perdue MD Unavailable Leonard Jasso APRN Primary Care Provide r Reason for Visit * Reason Onset Date Comments Medication Refill 12/02/2018 Encounter Details Date Type Department Care Team (Late st Contact Info) Description 12/02/2018 Refill [facility] [address] [place] [address] [address] [place] [address] Social History Tobacco Use Types [...] of Assessment Author No 10/25/2017 2:00 PM DIRECTOR OF CREATIVE SERVICES Deonna Galvan, FILER REPAIRER * Do you have serious difficulty walking or climbing stairs? (5 years old or older) Answer Date of Assessment Author No 10/25/2017 2:00 PM DIRECTOR OF CREATIVE SERVICES Deonna Galvan, FILER REPAIRER * Do you have difficulty dressing or bathing? (5 years old or older) Answer Date of Assessment Author No 10/25/2017 2:00 PM DIRECTOR OF CREATIVE SERVICES Deonna Galvan, FILER REPAIRER * Because of a physical, mental, or emotional condition, do you have difficulty doing errands alone such as visiting a doctor's office or shopping? (15 years old or older) Answer Date of Assessment Author No 10/25/2017 2:00 PM DIRECTOR OF CREATIVE SERVICES Deonna Galvan, FILER REPAIRER documented as of this encounter Mental Status * Because of a physical, mental, or emotional condition, do you have serious difficulty concentrating, remembering, or making decisions? (5 years old or older) Answer Entry Date Author No 10/25/2017 2:00 PM Deonna Padilla, FILER REPAIRER documented in this encounter Miscellaneous Notes * Telephone Encounter - Brittany Clemons CMA - 12/02/2018 2:22 PM DIRECTOR OF CREATIVE SERVICES ----- Message from Mandi Padilla sent at 12/02/2018 2:07 PM DIRECTOR OF CREATIVE SERVICES ----- Contact: Patient Patient called for his refill of Oxycodone & Morphine which come due 12/03/2018. Please call patient when prepared for crop picker. Thank you Yani S CTOR OF CREATIVE SERVICES documented in this encounter Plan of Treatment Not on file documented as of this encounter Goals Goal Patient Goal Type Associated Problems Recent Progress Patient-Stated? Author Blood Pressure < 140/90 Blood Pressure 134/86(2022 2:25 PM CDT) No Leonard Jasso APRN documented as of this encounter Visit Diagnoses Not on filedocumented in this encounter Care Teams Ruling Machine Feeder Relationship Specialty Start Date End Date Leonard Jasso APRN [address] [place] [id number] PCP - General Family Medicine 11/25/18 08/14/19 Denny Dey DO Referring Physician Orthopedic Surgery 06/28/18 9 Lacey Perdue MD [address] [phone] Referring Physician Infectious Diseases 06/28/18 documented as of this encounter
--- OUTSIDE RECORDS SUMMARY | 2024-11-23 00:29 | XMS_ITS | Encounter Summary ---
Author Organization [employer] Address [address] [place] [address] Care Team Providers Care Sheep And Wheat Farmer Name Role Phone Lacey Perdue MD Unavailable [phone] David Concepcion MILL HELPER Primary Care Provide r Reason for Referral * MRI/CAT Scan (Routine) - Closed Specialty Diagnoses / Procedures Referred By Celine almaguer Referred To Contact Radiology Diagnoses Chronic bilateral low back pain with left-sided sciatica Procedures MRI Lumbar Spine wo Contrast David Concepcion, MILL HELPER [address] [place] [address] Phone: tel: fax: Referral ID Status Reason Start Date Expiration Date Visits Re quested Visits Authorized [id number] Closed 08/23/2019 08/22/2020 1 1 Reason for Visit * Reason Comments Ankle Pain right open wound Back Pain chronic Encounter Details Date Type Department Care Team (Late st Contact Info) Description 08/23/2019 10:00 AM CDT Office Visit [facility] [id number] [place] [address] David Concepcion, MILL HELPER [address] [place] [address] Open wound of ankle with complication, right, subsequent encounter (Primary Dx); Chronic bilateral low back pain with left-sided sciatica; Gastroesophageal reflux disease without esophagitis Social History Tobacco Use Types Packs/Day Years [...] Sign Reading Time Taken Comments Blood Pressure 118/74 08/23/2019 10:17 AM CDT Pulse 80 08/23/2019 10:17 AM CDT Temperature 36.8 ??C (98.3 ??F) 08/23/2019 10:17 AM C DT Respiratory Rate 20 08/23/2019 10:17 AM CDT Oxygen Saturation 96% 08/23/2019 10:17 AM CDT Inhaled Oxygen Concentration - - Weight 85.1 kg (187 lb 9.6 oz) 08/23/2019 10:17 AM CDT Height 180.3 cm (5' 11 ) 08/23/2019 10:17 AM CDT Body Mass Index 26.16 08/23/2019 10:17 AM CDT documented in this encounter Functional [...] * Patient Instructions* David Concepcion APNP - 08/23/2019 10:00 AM CDT Take medications exactly as prescribed. Warm moist [...] is documented in the agreement. Follow up with wound clinic as recommended. Continue dressing changes as ordered by wound clinic. documented in this encounter Progress Notes * David Concepcion APNP - 08/23/2019 10:00 AM CDT Chief Complaint Patient presents with ??? Ankle Pain right open wound ??? Back Pain chronic [address] [place] [address] Dept: [phone] Dept Loc: [phone] Loc Date: 08/23/2019 Name: Edilberto Durand : 1955 PCP: TIFFANI Galeano Subjective: Patient ID: Edilberto Durand is a 63 y.o. male. Pt presents for follow up. Wound right lower extremity 4.0 cm long and 1.75cm wide. Granulation tissue remains present at 100%. Pt follows up with wound clinic for observation of healing wound. MRI today scheduled at 1pm of right ankle. He is evaluated every two weeks by wound clinic. PP and PT pulse 2/4 right lower extremity. Extremity warm to touch with no fever. History provided by: Patient Back Pain This is a chronic problem. The current episode started more than 1 year ago (Hx of vertebral fractures April 2016 from fall off trailer. ). The problem occurs daily. The problem has been gradually improving. Associated symptoms include arthralgias. Pertinent negatives include no abdominal pain, change in bowel habit, chest pain, chills, congestion, coughing, diaphoresis, fatigue, fever, headaches,nausea, rash, sore throat, urinary symptoms, vertigo, vomiting or weakness. The symptoms are aggravated by standing, twisting, bending and walking. He has tried oral narcotics, NSAIDs, rest, sleep, position changes and lying down (Xray of Lspine completed. REviewed findings with pt. Explained need for MRI.) for the symptoms. The treatment provided significant (Pt states he has decreased MSO4 and weaned self off of it. Stated it was making him too dizzy at work so he needed to stop using it. ) relief. Patient's medications, allergies, past medical, surgical, [...] Negative for difficulty urinating. Musculoskeletal: Positive for arthralgias and back pain. Skin: Positive for wound (Right lateral ankle. ). Negative for rash. Allergic/Immunologic: Negative for environmental allergies and food allergies. Neurological: Negative for dizziness, vertigo, seizures, syncope, weakness and headaches. Psychiatric/Behavioral: Negative for agitation and behavioral problems. Objective: Blood pressure 118/74, pulse 80, temperature 36.8 ??C (98.3 ??F), temperature source Tympanic, resp. rate 20, height 1.803 m (5' 11 ), weight 85.1 kg (187 lb 9.6 oz), SpO2 96 %., BMI Body mass index is 26.16 kg/m??. Physical Exam Vitals signs and nursing [...] sounds: Normal breath sounds. No wheezing. Genitourinary: Penis: Circumcised. Musculoskeletal: Lumbar back: He exhibits decreased range of motion. He exhibits no tenderness, no bony tenderness, no swelling, no pain and no spasm. Comments: Strong bilateral lower extremities. DTR's 2/4. Great toe lift strong bilaterally. Lymphadenopathy: Cervical: No cervical adenopathy. Skin: General: Skin is warm and dry. Comments: Lateral aspect of right ankle wound as described in HPI/ROS. Neurological: Mental Status: He is alert and oriented to person, place, and time. Psychiatric: Mood and Affect: Mood normal. Behavior: Behavior normal. Assessment/Plan: Problem List Items Addressed This Visit Chronic bilateral low back pain with sciatica Relevant Medications amitriptyline (ELAVIL) 75 MG tablet Other Relevant Orders MRI Lumbar Spine wo Contrast (Completed) Other Visit Diagnoses Open wound of ankle with complication, right, subsequent encounter - Primary Gastroesophageal reflux disease without esophagitis Relevant Medications ranitidine (ZANTAC) 150 MG tablet Take medications exactly as prescribed. Warm moist [...] is documented in the agreement. Follow up with wound clinic as recommended. Continue dressing changes as ordered by wound clinic. Next Visit: Follow up in about 1 month (around 09/23/2019). Encounter of: 08/23/2019 Signed: TIFFANI Galeano 09/01/2019 8:51 AM documented in this encounter Plan of Treatment Not on file documented as of this encounter Goals Goal Patient Goal Type Associated Problems Recent Progress Patient-Stated? Author Blood Pressure < 140/90 Blood Pressure 134/86(2022 2:25 PM CDT) No David Concepcion APRN documented as of this encounter Results * MRI Lumbar Spine wo Contrast (08/30/2019 8:06 AM CDT) Anatomical Region Laterality Modality T-spine, L-spine, Pelvis Magneti c Resonance 08/30/2019 9:08 AM CDT Impressions 08/30/2019 9:16 AM CDT 1. ??There is no acute compression fracture in the lumbar spine. 2. ??Multilevel dimo-nb-kthscjze lumbar spondylotic changes as described. ??No high-grade spinal canal narrowing. 3. ??The neural foraminal narrowing is most noticeable on the left at L3-L4 and L5-S1 where there is mass effect on the exiting left L3 and L5 nerve roots respectively. ??The right neural foraminal narrowing is most noticeable at L5-S1 where there is mass effect on the exiting right L5 nerve root. 4. ??Additional findings as described. THIS IS AN ELECTRONICALLY VERIFIED FINAL REPORT 08/30/2019 9:16 AM - Electronically signed by Todd De Souza D.O. AP: ESTEFANÍA D: ??08/30/2019 9:16 AM T: ??08/30/2019 9:16 AM Report ID: [id number] Reading Location: ??[id number] Narrative 08/30/2019 9:16 [place] [address] Patient Name:EDILBERTO DURAND ?Accession Number: [id number] Patient ID Number:[id number] ?Approval Date: 08/30/2019 9:16 AM Date of :1955 ? Imaging Date: 08/30/2019 Gender:M ?Referring Physician:DAVID CONCEPCION Exam Description:MRI LUMBAR SPINE WO CONTRAST ??Stay Type: EXAM DESCRIPTION: ??MRI LUMBAR SPINE WO CONTRAST REASON FOR STUDY: ??Status post fall 2 years ago with injury. ??Patient presents with back pain, bilateral leg pain and burning down to the thigh, worse on the left side. ??The duration of symptoms is greater than 6 weeks. TECHNIQUE: ?? Sagittal and Axial imaging includes T1, T2, STIR sequences. COMPARISON: ??Lumbar spine radiographs dated 08/16/2019. FINDINGS: ??SEGMENTATION: No transitional anatomy. The lowest well-developed disc space is labeled L5-S1. ALIGNMENT: There is levoconvex curvature of the upper lumbar spine and dextroconvex curvature of the lower lumbar spine. VERTEBRAE: There is no acute compression fracture in the lumbar spine. ??Minor scattered endplate concavities without associated edema may reflect physiologic changes. ??Schmorl's node at the inferior margin of L5. ??Multilevel facet arthropathy. ??Scattered endplate degenerative changes and marginal spurring is most noticeable at L5-S1. DISC HEIGHT: Diffuse multilevel moderate intervertebral disc height loss and disc desiccation. HARDWARE: None in the spine. CORD/CAUDA: The conus medullaris terminates at the L1-L2 disc space. INDIVIDUAL DISC LEVELS: T12-L1: No significant disc bulge, spinal canal or neural foraminal narrowing. L1-L2: No significant disc bulge, spinal canal or neural foraminal narrowing. L2-L3: Circumferential disc bulge with thickening of the ligamentum flavum and facet arthropathy. ??Spinal canal is mildly narrowed. ??There is bilateral subarticular zone narrowing, left greater than right. ??Mild bilateral neural foraminal narrowing. L3-L4: Circumferential disc bulge with thickening of the ligamentum flavum and facet arthropathy. ??Mild spinal canal narrowing. ??There is left subarticular zone narrowing. ??Mild right and severe left neural foraminal narrowing. ??Mass effect on the exiting left L3 nerve root. L4-L5: Circumferential disc bulge with thickening of the ligamentum flavum and facet arthropathy. ??Minor effacement of the lateral thecal sac due to thickened ligamentum flavum. ??There is moderate right and mild left neural foraminal narrowing. ??Disc material contacts the dorsal margin of the exiting right L4 nerve root. L5-S1: Circumferential disc bulge and a superimposed right subarticular and neural foraminal disc protrusion. ??Thickening of the ligamentum flavum and facet arthropathy. ??Spinal canal is patent. ??There is severe right and moderate left neural foraminal narrowing. ??Mass effect on the exiting right L5 nerve root and thickened ligamentum flavum approaches the dorsal margin of the exiting left L5 nerve root. VISUALIZED UPPER ABDOMEN: The right renal T2 hyperintense focus is incompletely assessed on this examination. ??The findings most commonly reflect a cyst and confirmation with ultrasound can be obtained as clinically indicated. Procedure Note Todd De Souza DO - 08/30/[address] [place] [address] Patient Name:EDILBERTO DURAND Accession Number: [id number] Patient ID Number:[id number] Approval Date: 08/30/2019 9:16 AM Date of :1955 Imaging Date: 08/30/2019 Gender:M Referring Physician:DAVID CONCEPCION Exam Description:MRI LUMBAR SPINE WO CONTRAST Stay Type: EXAM DESCRIPTION: MRI LUMBAR SPINE WO CONTRAST REASON FOR STUDY: Status post fall 2 years ago with injury. Patientpresents with back pain, bilateral leg pain and burning down to the thigh, worse onthe left side. The duration of symptoms is greater than 6 weeks. TECHNIQUE: Sagittal and Axial imaging includes T1, T2, STIR sequences. COMPARISON: Lumbar spine radiographs dated 08/16/2019. FINDINGS: SEGMENTATION: No transitional anatomy. The lowestwell-developed disc space is labeled L5-S1. ALIGNMENT: There is levoconvex curvature of the upper lumbar spine and dextroconvex curvature of the lower lumbar spine. VERTEBRAE: There is no acute compression fracture in the lumbar spine.Minor scattered endplate concavities without associated edema may reflect physiologic changes. Schmorl's node at the inferior margin of L5.Multilevel facet arthropathy. Scattered endplate degenerative changes and marginal spurring is most noticeable at L5-S1. DISC HEIGHT: Diffuse multilevel moderate intervertebral disc height lossand disc desiccation. HARDWARE: None in the spine. CORD/CAUDA: The conus medullaris terminates at the L1-L2 disc space. INDIVIDUAL DISC LEVELS: T12-L1: No significant disc bulge, spinal canal or neural foraminalnarrowing. L1-L2: No significant disc bulge, spinal canal or neural foraminalnarrowing. L2-L3: Circumferential disc bulge with thickening of the ligamentum flavumand facet arthropathy. Spinal canal is mildly narrowed. There is bilateral subarticular zone narrowing, left greater than right. Mild bilateralneural foraminal narrowing. L3-L4: Circumferential disc bulge with thickening of the ligamentum flavumand facet arthropathy. Mild spinal canal narrowing. There is leftsubarticular zone narrowing. Mild right and severe left neural foraminal narrowing.Mass effect on the exiting left L3 nerve root. L4-L5: Circumferential disc bulge with thickening of the ligamentum flavumand facet arthropathy. Minor effacement of the lateral thecal sac due to thickened ligamentum flavum. There is moderate right and mild left neural foraminal narrowing. Disc material contacts the dorsal margin of theexiting right L4 nerve root. L5-S1: Circumferential disc bulge and a superimposed right subarticularand neural foraminal disc protrusion. Thickening of the ligamentum flavum and facet arthropathy. Spinal canal is patent. There is severe right and moderate left neural foraminal narrowing. Mass effect on the exitingright L5 nerve root and thickened ligamentum flavum approaches the dorsal margin ofthe exiting left L5 nerve root. VISUALIZED UPPER ABDOMEN: The right renal T2 hyperintense focus is incompletely assessed on this examination. The findings most commonlyreflect a cyst and confirmation with ultrasound can be obtained as clinically indicated. IMPRESSION: 1. There is no acute compression fracture in the lumbar spine. 2. Multilevel edvt-pw-exvoqhom lumbar spondylotic changes as described.No high-grade spinal canal narrowing. 3. The neural foraminal narrowing is most noticeable on the left at L3-L4and L5-S1 where there is mass effect on the exiting left L3 and L5 nerve roots respectively. The right neural foraminal narrowing is most noticeable at L5-S1 where there is mass effect on the exiting right L5 nerve root. 4. Additional findings as described. THIS IS AN ELECTRONICALLY VERIFIED FINAL REPORT 08/30/2019 9:16 AM - Electronically signed by Todd De Souza D.O. AP: ESTEFANÍA Report ID: [id number] Reading Location: [id number] David Concepcion APRN IMG MRI ORDERABLES Fi nal Result documented in this encounter Visit Diagnoses Diagnosis Open wound of ankle with complication, right, subsequent encounter- Primary Chronic bilateral low back pain with left-sided sciatica Gastroesophageal reflux disease without esophagitis Esophageal reflux Chronic bilateral low back pain with left-sided sciatica documented in this encounter Care Teams Sheep And Wheat Farmer Relationship Specialty Start Date End Date David Concepcion APRN [address] [facility] [address] [place] [address] PCP - General Family Medicine 08/15/19 04/30/21 Lacey Perdue MD [address] [id number] Referring Physician Infectious Diseases 06/28/18 documented as of this encounter
--- OUTSIDE RECORDS SUMMARY | 2024-11-23 00:29 | XMS_ITS | Encounter Summary ---
Author Organization [employer] Address [address] [place] [id number] Care Team Providers Care Hand Filer Balance Wheel Name Role Phone Denny Dey DO Unavailable [phone] Lacey Perdue MD Unavailable Leonard Jasso APRN Primary Care Provide r Reason for Visit * Reason Comments Follow-up wound right foot Encounter Details Date Type Department Care Team (Late st Contact Info) Description 03/03/2019 2:30 PM CDT Office Visit [address] [id number] eLonard Jasso APRN [address] [place] [phone] Chronic bilateral low back pain with left-sided sciatica (Primary Dx); Closed wound Social History Tobacco Use Types Packs/Day Years [...] Sign Reading Time Taken Comments Blood Pressure 120/72 03/03/2019 2:10 PM CDT Pulse 72 03/03/2019 2:10 PM CDT Temperature 36.7 ??C (98 ??F) 03/03/2019 2:10 PM CDT Respiratory Rate - - Oxygen Saturation 97% 03/03/2019 2:10 PM CDT Inhaled Oxygen Concentration - - Weight 91.3 kg (201 lb 3.2 oz) 03/03/2019 2:10 P M CDT Height 180.3 cm (5' 10.98 ) 03/03/2019 2:10 PM C DT Body Mass Index 28.07 03/03/2019 2:10 PM CDT documented in this encounter Functional [...] * Patient Instructions* Leonard Jasso APNP - 03/03/2019 2:30 PM CDT Take medications exactly as prescribed. Warm [...] all that is documented in the agreement. Wound is closed. Continue to cover with wet to dry dressing. Follow up with Surgeon on 03/08/19. Nochanges to treatment until reviewed by Surgeon. documented in this encounter Progress Notes * Leonard Jasso APNP - 03/03/2019 2:30 PM CDT Chief Complaint Patient presents with ??? Follow-up wound right foot [address] [address] Dept: [phone] Dept Loc: [phone] Loc Date: 03/03/2019 Name: Edilberto Hawley : 1955 PCP: TIFFANI Galeano Subjective: Patient ID: Edilberto Hawley is a 63 y.o. male. Pt presents for follow up. Wound right lower extremity 4.25cm long and 2cm wide. Granulation tissuecovers 100%. Pt follows up with wound clinic for observation of healing wound. PP and PT pulse 2/4 right lower extremity. Extremity warm to touch with no fever. History provided by: Patient Patient's medications, allergies, past medical, surgical, social and family histories were reviewedand updated as appropriate. Review of Systems Constitutional: Negative for activity change, appetite change, chills and fever. HENT: Negative for congestion, ear pain, rhinorrhea, sinus pressure and sore throat. Eyes: Negative for pain, discharge and visual disturbance. Respiratory: Negative for cough, shortness of breath and wheezing. Cardiovascular: Negative for chest pain and palpitations. Gastrointestinal: Negative for abdominal distention, abdominal pain, blood in stool, constipation, diarrhea, nausea and vomiting. Endocrine: Negative for cold intolerance and heat intolerance. Genitourinary: Negative for difficulty urinating. Skin: Positive for wound (Right lower lateral ankle wound. ). Negative for rash. Allergic/Immunologic: Negative for environmental allergies and food allergies. Neurological: Negative for dizziness, tremors, speech difficulty, weakness and headaches. Psychiatric/Behavioral: Negative for agitation and behavioral problems. All other systems reviewed and are negative. Objective: Blood pressure 120/72, pulse 72, temperature 36.7 ??C (98 ??F), temperature source Tympanic, height1.803 m (5' 10.98 ), weight 91.3 kg (201 lb 3.2 oz), SpO2 97 %., BMI Body mass index is 28.07 kg/m??. Physical Exam Constitutional: He is oriented to person, place, and time. He appears well- developed and well-nourished. No distress. HENT: Head: Normocephalic and atraumatic. Eyes: Pupils are equal, round, and reactive to light. Conjunctivae are normal. Neck: Normal range of motion. Neck supple. Cardiovascular: Normal rate, regular rhythm, S1 normal, S2 normal and normal heart sounds. Pulses: Dorsalis pedis pulses are 2+ on the right side. Posterior tibial pulses are 2+ on the right side. Pulmonary/Chest: Effort normal and breath sounds normal. No respiratory distress. He has no wheezes. Genitourinary: Circumcised. Musculoskeletal: He exhibits no edema. Lymphadenopathy: He has no cervical adenopathy. Neurological: He is alert and oriented to person, place, and time. Skin: Skin is warm and dry. He is not diaphoretic. Lateral aspect of right ankle wound as described in HPI/ROS. Psychiatric: He has a normal mood and affect. His behavior is normal. Nursing note and vitals reviewed. Assessment/Plan: Problem List Items Addressed This Visit None Visit Diagnoses Chronic bilateral low back pain with left-sided sciatica - Primary Relevant Medications baclofen (LIORESAL) 10 MG tablet morphine (MS CONTIN) 30 MG extended release tablet oxyCODONE-acetaminophen (PERCOCET) 10-325 MG per tablet Closed wound Take medications exactly as prescribed. Warm moist [...] all that is documented in the agreement. Wound is closed. Continue to cover with wet to dry dressing. Follow up with Surgeon on 03/08/19. Nochanges to treatment until reviewed by Surgeon. Next Visit: Follow-up in about 4 weeks (around 03/31/2019). Encounter of: 03/03/2019 Signed: TIFFANI Galeano 03/07/2019 6:51 PM documented in this encounter Plan of Treatment Not on file documented as of this encounter Goals Goal Patient Goal Type Associated Problems Recent Progress Patient-Stated? Author Blood Pressure < 140/90 Blood Pressure 134/86(2022 2:25 PM CDT) No Leonard Jasso APRN documented as of this encounter Visit Diagnoses Diagnosis Chronic bilateral low back pain with left-sided sciatica- Primary Closed wound Injury, other and unspecified, unspecified site documented in this encounter Care Teams Hand Filer Balance Wheel Relationship Specialty Start Date End Date Leonard Jasso APRN [address] [place] [address] PCP - General Family Medicine 11/25/18 08/14/19 Denny Dey DO Referring Physician Orthopedic Surgery 06/28/18 9 Lacey Perdue MD [address] [id number] Referring Physician Infectious Diseases 06/28/18 documented as of this encounter
--- OUTSIDE RECORDS SUMMARY | 2024-11-23 00:29 | XMS_ITS | Encounter Summary ---
Author Organization [facility] Address [address] [place] [address] Care Team Providers Care Vascular Technologist Sonographer Name Role Phone Denny Dey DO Unavailable [phone] Lacey Perdue MD Unavailable [phone] Leonard Jasso APRN Primary Care Provide r Reason for Visit * Reason Onset Date Comments Scheduled Appointment 12/29/2018 Encounter Details Date Type Department Care Team (Late st Contact Info) Description 12/29/2018 Telephone [facility] [address] [place] [address] Zenaida Clifton, RN [address] [place] [address] Scheduled Appointment Social History Tobacco Use Types Packs/Day [...] of Assessment Author No 10/25/2017 2:00 PM SUCKER MACHINE OPERATOR Deonna Galvan, RIGGING UP WORKER * Do you have serious difficulty walking or climbing stairs? (5 years old or older) Answer Date of Assessment Author No 10/25/2017 2:00 PM SUCKER MACHINE OPERATOR Deonna Galvan S, RIGGING UP WORKER * Do you have difficulty dressing or bathing? (5 years old or older) Answer Date of Assessment Author No 10/25/2017 2:00 PM SUCKER MACHINE OPERATOR Deonna Galvan, RIGGING UP WORKER * Because of a physical, mental, or emotional condition, do you have difficulty doing errands alone such as visiting a doctor's office or shopping? (15 years old or older) Answer Date of Assessment Author No 10/25/2017 2:00 PM Deonna Padilla, RIGGING UP WORKER documented as of this encounter Mental Status * Because of a physical, mental, or emotional condition, do you have serious difficulty concentrating, remembering, or making decisions? (5 years old or older) Answer Entry Date Author No 10/25/2017 2:00 PM Deonna Padilla, RIGGING UP WORKER documented in this encounter Miscellaneous Notes * Telephone Encounter - Zenaida Clifton RN - 12/29/2018 12:34 PM SUCKER MACHINE OPERATOR Pt has started a new job and has been having difficulty making his follow-up appointment. Angel Luis Dotsonked if I would call the patient to let him know the results of his Colonoscopy over the phone. Hedid not want to inconvenience Mr. Hawley further and create issues with his new employers. I advised him two small polyps, non-cancerous. He will need to return in three years for a follow- up evaluation. Pt. Was very grateful and verbalized understanding. ER MACHINE OPERATOR documented in this encounter Plan of Treatment Not on file documented as of this encounter Goals Goal Patient Goal Type Associated Problems Recent Progress Patient-Stated? Author Blood Pressure < 140/90 Blood Pressure 134/86(2022 2:25 PM CDT) No Leonard Jasso APRN documented as of this encounter Visit Diagnoses Not on filedocumented in this encounter Care Teams Vascular Technologist Sonographer Relationship Specialty Start Date End Date Leonard Jasso APRN [address] [place] [address] PCP - General Family Medicine 11/25/18 08/14/19 Denny Dey DO Referring Physician Orthopedic Surgery 06/28/18 9 Lacey Perdue MD [address] [address] Referring Physician Infectious Diseases 06/28/18 documented as of this encounter
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
--- OUTSIDE RECORDS SUMMARY | 2024-11-23 00:29 | XMS_ITS | Encounter Summary ---
Author Organization [facility] Address [address] [place] [address] Care Team Providers Care Suspect Artist Name Role Phone Denny Dey DO Unavailable [phone] Lacey Perdue MD Unavailable [phone] Leonard Jasso APRN Primary Care Provide r Reason for Visit * Auth/Cert Specialty Diagnoses / Procedures Referred By Celine t Referred To Contact Diagnoses PERSONAL HISTORY OF COLON POLYPS Procedures ENDO - COLONOSCOPY; BIOPSY; POLYPECTOMY Referral ID Status Reason Start Date Expiration Date Visits Re quested Visits Authorized [id number] 1 1 Encounter Details Date Type Department Care Team (Latest Contact Info) Description 12/07/2018 7:34 AM SUPERVISOR WET POUR - 12/07/2018 10:34 AM SUPERVISOR WET POUR Hospital Encounter [facility] [address] [place] [address] Siddhartha Loyd MD [address] [place], [place] [id number] Discharge Disposition: Home - Discharge to Home [...] Comments Blood Pressure 114/72 12/07/2018 10:12 AM SUPERVISOR WET POUR Pulse 60 12/07/2018 10:12 AM SUPERVISOR WET POUR Temperature 36.8 ??C (98.3 ??F) 12/07/2018 10:[address] Respiratory Rate 18 12/07/2018 10:12 AM SUPERVISOR WET POUR Oxygen Saturation 97% 12/07/2018 10:12 AM SUPERVISOR WET POUR Inhaled Oxygen Concentration - - Weight 89.4 kg (197 lb) 12/07/2018 7:50 AM SUPERVISOR WET POUR Height 180.3 cm (5' 11 ) 12/07/2018 7:50 AM SUPERVISOR WET POUR Body Mass Index 27.48 12/07/2018 7:50 AM SUPERVISOR WET POUR documented in this encounter Functional Status * [...] Author No 10/25/2017 2:00 PM Deonna Padilla FOOD PROCESSING PLANT MANAGER * Because of a physical, mental, [...] Physical Exam, Review of Systems or Plan. RVISOR WET POUR * Siddhartha Loyd MD - 12/07/2018 8:45 [...] Leonard Jasso, * ?? This is a [facility] patient. ? Chief Complaint: Chief Complaint Patient [...] nail ??? Shoulder injury ? Substance abuse ([facility]) ? cocaine, crystal meth nothing since 1996 [...] ??? ALT 11/14/2018 63 ? ? EGFR Non-/Chinese 11/14/2018 >60 ? ? EGFR /Chinese 11/14/2018 >60 ??? Vancomycin Trough 11/14/2018 10.8* ??? CRP 11/14/2018 1.30* Hospital Outpatient Visit on 11/11/2018 Component Date Value ??? Sodium 11/11/2018 137 ??? Potassium 11/11/2018 4.2 ??? Chloride 11/11/2018 102 ??? CO2 11/11/2018 26 ??? Glucose 11/11/2018 162* ??? BUN 11/11/2018 13 ??? Creatinine, Serum 11/11/2018 0.93 ??? Calcium 11/11/2018 9.0 ? ? EGFR Non-/Chinese 11/11/2018 >60 ? ? EGFR /Chinese 11/11/2018 >60 ??? Vancomycin Trough 11/11/2018 7.1 [...] ??? ALT 11/07/2018 51 ? ? EGFR Non-/Chinese 11/07/2018 >60 ? ? EGFR /Chinese 11/07/2018 >60 ??? Sedimentation Rate 11/07/2018 25* ??? Vancomycin Trough 11/07/2018 9.9 Hospital Outpatient Visit on 11/04/2018 Component Date Value ??? Vancomycin Trough 11/04/2018 10.1* ??? Sodium 11/04/2018 141 ??? Potassium 11/04/2018 4.0 ??? Chloride 11/04/2018 106 ??? CO2 11/04/2018 26 ??? Glucose 11/04/2018 122* ??? BUN 11/04/2018 20* ??? Creatinine, Serum 11/04/2018 0.96 ??? Calcium 11/04/2018 9.3 ? ? EGFR Non-/Chinese 11/04/2018 >60 ? ? EGFR /Chinese 11/04/2018 >60 ? Impression and Plan: 63-year-old [...] polyps. ? Siddhartha Montgomery. MD Evert, FACS RVISOR WET POUR documented in this encounter Procedure Notes * Siddhartha Loyd MD - 12/07/2018 9:51 AM CST [facility] COLONOSCOPY PROCEDURE NOTE @SDATE@ Patient Name : Edilberto Hawley Referring Physician:TIFFANI Galeano Date of Surgery: @@ Surgeon: Siddhartha Loyd MD Staff: @[facility]@ Type of anesthesia: MAC (Managed Anesthesia Care) [...] Recommendation: Follow up with me. 1 week. RVISOR WET POUR documented in this encounter OR Notes * Op Note - Siddhartha Loyd MD - 12/08/2018 10:18 AM CST [facility] COLONOSCOPY PROCEDURE NOTE ? Patient Name : Edilberto Hawley Referring Physician:TIFFANI Galeano ?? Date of Surgery: 12-07-18 ?? Surgeon: Siddhartha Loyd MD Staff: @[facility]@ Type of anesthesia: MAC (Managed Anesthesia Care) [...] Recommendation: Follow up with me. 1 week. RVISOR WET POUR documented in this encounter Plan of Treatment Not on file documented as of this encounter Goals Goal Patient Goal Type Associated Problems Recent Progress Patient-Stated? Author Blood Pressure < 140/90 Blood Pressure 134/86(2022 2:25 PM CDT) No Leonard Jasso, HOME SERVICE ADVISOR documented as of this encounter Procedures Procedure Name Priority Date/Time Associated Diagnosis Comments PATHOLOGY/TISSUE SPECIMEN Routine 12/07/2018 9:35 AM SUPERVISOR WET POUR Endo - Colonoscopy 12/07/2018 9: 10 AM SUPERVISOR WET POUR PERSONAL HISTORY OF COLON POLYPS documented in this encounter Results * Pathology/Tissue Specimen (12/07/2018 9:35 AM SUPERVISOR WET POUR) Histology Tracking See scanned image in senior media planner. 12/14/2018 10:44 [address] [email or web address] Pathology (qualifier value) POLYP / Unknown 12/07/2018 10:11 AM SUPERVISOR WET POUR Pathology (qualifier value) POLYP / Unknown 12/07/2018 10:12 AM SUPERVISOR WET POUR us Siddhartha Loyd MD PATHOLOGY/CYTOLOGY ORDERABLES F inal Result [email or web address] [address] [place] [address] documented in this encounter Visit Diagnoses Not on filedocumented in this encounter Administered Medications Inactive Administered Medications - up to 3 most recent administrations Medication Order MAR Action Action Date Dose Rate Site lactated ringers infusion at 100 mL/hr, Intravenous, CONTINUOUS, Starting on Wed12/07/18 at 0800, For 60 days, Pre-op New Bag 12/07/2018 8:09 AM SUPERVISOR WET POUR 100 mL/hr documented in this encounter Active and Recently Administered Medications Times are shown in SUPERVISOR WET POUR. Continuous Medication Order 12/05/2018 12/06/2018 12/07/2018 lactated ringers infusion at 100 mL/hr, Intravenous, CONTINUOUS, Starting on Wed12/07/18 at 0800, For 60 days, Pre-op 0809 (New Bag - Prov ider: Iman Barrios LPN) documented in this encounter Care Teams Suspect Artist Relationship Specialty Start Date End Date Leonard Jasso APRN [address] [place] [address] PCP - General Family Medicine 11/25/18 08/14/19 Denny Dey DO Referring Physician Orthopedic Surgery 06/28/18 9 Lacey Perdue MD [address] [phone] Referring Physician Infectious Diseases 06/28/18 documented as of this encounter
--- OUTSIDE RECORDS SUMMARY | 2024-11-23 00:29 | XMS_ITS | Encounter Summary ---
Author Organization [facility] Address [address] [place] [address] Care Team Providers Care Justowriter Operator Name Role Phone Denny Dey DO Unavailable Lacey Perdue MD Unavailable [phone] Leonard Jasso APRN Primary Care Provide r Encounter Details Date Type Department Care Team (Late st Contact Info) Description 06/02/2019 Orders Only [address] [address] Leonard Jasso APRN [facility] [place], [place] [id number] Social History Tobacco Use Types Packs/Day Years [...] Author No 10/25/2017 2:00 PM Deonna Padilla, DRY CLEANING MACHINE OPERATOR * Do you have serious difficulty walking or climbing stairs? (5 years old or older) Answer Date of Assessment Author No 10/25/2017 2:00 PM Deonna Padilla, DRY CLEANING MACHINE OPERATOR * Do you have difficulty dressing or bathing? (5 years old or older) Answer Date of Assessment Author No 10/25/2017 2:00 PM Deonna Padilla, DRY CLEANING MACHINE OPERATOR * Because of a physical, mental, or emotional condition, do you have difficulty doing errands alone such as visiting a doctor's office or shopping? (15 years old or older) Answer Date of Assessment Author No 10/25/2017 2:00 PM Deonna Padilla, DRY CLEANING MACHINE OPERATOR documented as of this encounter Mental Status * Because of a physical, mental, or emotional condition, do you have serious difficulty concentrating, remembering, or making decisions? (5 years old or older) Answer Entry Date Author No 10/25/2017 2:00 PM Deonna Padilla, DRY CLEANING MACHINE OPERATOR documented in this encounter Plan of Treatment Not on file documented as of this encounter Goals Goal Patient Goal Type Associated Problems Recent Progress Patient-Stated? Author Blood Pressure < 140/90 Blood Pressure 134/86(2022 2:25 PM CDT) No Leonard Jasso APRN documented as of this encounter Visit Diagnoses Not on filedocumented in this encounter Care Teams Justowriter Operator Relationship Specialty Start Date End Date Leonard Jasso APRN [address] [place] [address] PCP - General Family Medicine 11/25/18 08/14/19 Denny Dey DO Referring Physician Orthopedic Surgery 06/28/18 9 Lacey Perdue MD [address] [phone] Referring Physician Infectious Diseases 06/28/18 documented as of this encounter
--- OUTSIDE RECORDS SUMMARY | 2024-11-23 00:29 | XMS_ITS | Encounter Summary ---
Author Organization [facility] Address [address] [place] [address] Care Team Providers Care Formal Wear Rental Clerk Name Role Phone Denny Dey DO Unavailable [phone] Lacey Perdue MD Unavailable Leonard Jasso APRN Primary Care Provide r Reason for Visit * Reason Onset Date Comments Xray Only 03/09/2019 Encounter Details Date Type Department Care Team (Late st Contact Info) Description 03/09/[address] [address] [address] [place] [address] Xray Only Social History Tobacco Use Types Packs/Day Years [...] Author No 10/25/2017 2:00 PM Deonna Padilla, GEOLOGY TECHNICIAN * Do you have serious difficulty walking or climbing stairs? (5 years old or older) Answer Date of Assessment Author No 10/25/2017 2:00 PM Deonna Padilla, GEOLOGY TECHNICIAN * Do you have difficulty dressing or bathing? (5 years old or older) Answer Date of Assessment Author No 10/25/2017 2:00 PM Deonna Padilla, GEOLOGY TECHNICIAN * Because of a physical, mental, [...] Telephone Encounter - Brittany Clemons CMA - 03/09/2019 10:26 AM CDT I called patient and left a voicemail informing patient per Dylan he needs an appointment. ----- Message from Mandi Padilla sent at 03/09/2019 10:10 AM CDT ----- Contact: Patient Patient called stating he desperately would like an xray ordered for his foot. He stated the foot is swollen and can't step on it. He would appreciate a call in regards to his request. I did inform patient most typically he would need an appt for provider to order but that I would relay request. Please call [phone]. Thank you Yani Lucila documented in this encounter Plan of Treatment Not on file documented as of this encounter Goals Goal Patient Goal Type Associated Problems Recent Progress Patient-Stated? Author Blood Pressure < 140/90 Blood Pressure 134/86(2022 2:25 PM CDT) No Leonard Jasso APRN documented as of this encounter Visit Diagnoses Not on filedocumented in this encounter Care Teams Formal Wear Rental Clerk Relationship Specialty Start Date End Date Leonard Jasso APRN [address] [place] [address] PCP - General Family Medicine 11/25/18 08/14/19 Denny Dey DO Referring Physician Orthopedic Surgery 06/28/18 9 Lacey Perdue MD [address] [phone] Referring Physician Infectious Diseases 06/28/18 documented as of this encounter
--- OUTSIDE RECORDS SUMMARY | 2024-11-23 00:29 | XMS_ITS | Encounter Summary ---
Author Organization [facility] Address [address] [place] [address] Care Team Providers Care Ore Roaster Name Role Phone Denny Dey DO Unavailable [phone] Lacey Perdue MD Unavailable [phone] Leonard Jasso APRN Primary Care Provide r Leonard Jasso APRN Primary Care Provide r Reason for Visit * Reason Comments Cough Needs work note, steph[address] st congestion, burning eyes, sinus drainage Encounter Details Date Type Department Care Team (Late st Contact Info) Description 02/17/2019 3:00 PM CDT Office Visit [address] [phone] Leonard Jasso APRN [address] [place] [id number] Viral URI with cough (Primary Dx) Social History Tobacco Use Types [...] Sign Reading Time Taken Comments Blood Pressure 142/80 02/17/2019 2:51 PM CDT Pulse 92 02/17/2019 2:51 PM CDT Temperature 37.4 ??C (99.4 ??F) 02/17/2019 2:51 PM CD T Respiratory Rate - - Oxygen Saturation 96% 02/17/2019 2:51 PM CDT Inhaled Oxygen Concentration - - Weight 89.6 kg (197 lb 8 oz) 02/17/2019 2:51 PM CDT Height 180.3 cm (5' 10.98 ) 02/17/2019 2:51 PM C DT Body Mass Index 27.56 02/17/2019 2:51 PM CDT documented in this encounter Functional Status * Are you deaf or do you have serious difficulty hearing? Answer Date of Assessment Author No 10/25/2017 2:00 PM Deonna Padilla, SUPERVISOR JEWELRY DEPARTMENT * Are you blind or do you have serious difficulty seeing, even when wearing glasses? Answer Date of Assessment Author No 10/25/2017 2:00 PM Deonna Padilla, SUPERVISOR JEWELRY DEPARTMENT * Do you have serious difficulty walking or climbing stairs? (5 years old or older) Answer Date of Assessment Author No 10/25/2017 2:00 PM Deonna Padilla, SUPERVISOR JEWELRY DEPARTMENT * Do you have difficulty dressing or bathing? (5 years old or older) Answer Date of Assessment Author No 10/25/2017 2:00 PM Deonna Padilla, SUPERVISOR JEWELRY DEPARTMENT * Because of a physical, mental, or emotional condition, do you have difficulty doing errands alone such as visiting a doctor's office or shopping? (15 years old or older) Answer Date of Assessment Author No 10/25/2017 2:00 PM Deonna Padilla SUPERVISOR JEWELRY DEPARTMENT documented as of this encounter Mental Status * Because of a physical, mental, or emotional condition, do you have serious difficulty concentrating, remembering, or making decisions? (5 years old or older) Answer Entry Date Author No 10/25/2017 2:00 PM Deonna Padilla SUPERVISOR JEWELRY DEPARTMENT documented in this encounter Patient Instructions * Patient Instructions* Leonard Jasso APNP - 02/17/2019 3:00 PM CDT Take medication exactly as written. Tylenol or ibuprofen as needed for fever and pain. Follow up ifnot better in a week. documented in this encounter Progress Notes * Leonard Jasso APNP - 02/17/2019 3:00 PM CDT Chief Complaint Patient presents with ??? Cough Needs work note, chest congestion, burning eyes, sinus drainage [address] [address] Dept: [phone] Dept Loc: [phone] Loc Date: 02/17/2019 Name: Edilberto Hawley : 1955 PCP: TIFFANI Galeano Subjective: Patient ID: Edilberto Hawley is a 63 y.o. male. History provided by: Patient Cough This is a new problem. The current episode started in the past 7 days. The problem has been gradually worsening. The problem occurs constantly. The cough is productive of sputum. Associated symptoms include nasal congestion, rhinorrhea, shortness of breath and wheezing. Pertinent negatives include no chest pain, chills, ear congestion, ear pain, fever, headaches, heartburn, hemoptysis, myalgias, postnasal drip, rash, sore throat, sweats or weight loss. Nothing aggravates the symptoms. He has tried nothing for the symptoms. There is no history of asthma, bronchitis, COPD or environmental allergies. Patient's medications, allergies, past medical, surgical, social and family histories were reviewedand updated as appropriate. Review of Systems Constitutional: Negative for activity change, appetite change, chills, fever and weight loss. HENT: Positive for rhinorrhea. Negative for congestion, ear pain, postnasal drip, sinus pressure and sore throat. Eyes: Negative for pain, discharge and visual disturbance. Respiratory: Positive for cough, shortness of breath and wheezing. Negative for hemoptysis. Cardiovascular: Negative for chest pain and palpitations. Gastrointestinal: Negative for abdominal distention, abdominal pain, blood in stool, constipation, diarrhea, heartburn, nausea and vomiting. Endocrine: Negative for cold intolerance and heat intolerance. Genitourinary: Negative for difficulty urinating. Musculoskeletal: Negative for myalgias. Skin: Negative for rash. Allergic/Immunologic: Negative for environmental allergies and food allergies. Neurological: Negative for dizziness, tremors, speech difficulty, weakness and headaches. Psychiatric/Behavioral: Negative for agitation and behavioral problems. All other systems reviewed and are negative. Objective: Blood pressure 142/80, pulse 92, temperature 37.4 ??C (99.4 ??F), temperature source Tympanic, height 1.803 m (5' 10.98 ), weight 89.6 kg (197 lb 8 oz), SpO2 96 %., BMI Body mass index is 27.56 kg/m??. Physical Exam Constitutional: He is oriented to person, place, and time. He appears well- developed and well-nourished. No distress. HENT: Head: Normocephalic and atraumatic. Right Ear: Hearing and tympanic membrane normal. Left Ear: Hearing and tympanic membrane normal. Nose: Mucosal edema and rhinorrhea present. Right sinus exhibits no maxillary sinus tenderness. Left sinus exhibits no maxillary sinus tenderness. Mouth/Throat: Oropharynx is clear and moist and mucous membranes are normal. No tonsillar exudate. Eyes: Pupils are equal, round, and reactive to light. Conjunctivae are normal. Neck: Normal range of motion. Neck supple. Cardiovascular: Normal rate, regular rhythm and normal heart sounds. Pulmonary/Chest: Effort normal and breath sounds normal. No respiratory distress. He has no wheezes. Abdominal: Soft. He exhibits no distension. There is no tenderness. Lymphadenopathy: He has no cervical adenopathy. Neurological: He is alert and oriented to person, place, and time. Skin: Skin is warm and dry. He is not diaphoretic. Nursing note and vitals reviewed. Assessment/Plan: Problem List Items Addressed This Visit None Visit Diagnoses Viral URI with cough - Primary Take medication exactly as written. Tylenol or ibuprofen as needed for fever and pain. Follow up ifnot better in a week. Next Visit: Follow-up if symptoms worsen or fail to improve. Encounter of: 02/17/2019 Signed: TIFFANI Galeano 02/22/2019 9:20 AM documented in this encounter Plan of Treatment Not on file documented as of this encounter Goals Goal Patient Goal Type Associated Problems Recent Progress Patient-Stated? Author Blood Pressure < 140/90 Blood Pressure 134/86(2022 2:25 PM CDT) No Leonard Jasso APRN documented as of this encounter Visit Diagnoses Diagnosis Viral URI with cough- Primary Acute upper respiratory infections of unspecified site documented in this encounter Care Teams Ore Roaster Relationship Specialty Start Date End Date Leonard Jasso APRN [facility]0 [place], [place] [id number] PCP - General Family Medicine 11/25/18 08/14/19 Leonard Jasso APRN [address] [facility] [address] [place], [place] [address] PCP - General Family Medicine 08/15/19 04/30/21 Denny Dey DO Referring Physician Orthopedic Surgery 06/28/18 9 Lacey Perdue MD [address] [phone] Referring Physician Infectious Diseases 06/28/18 documented as of this encounter
--- OUTSIDE RECORDS SUMMARY | 2024-11-23 00:29 | XMS_ITS | Encounter Summary ---
Author Organization [facility] Address [address] [place] [address] Care Team Providers Care Natural Gas Plant Technician Name Role Phone Denny Dey DO Unavailable [phone] Lacey Perdue MD Unavailable [phone] Leonard Jasso COMMUNITY RELATIONS ADVISOR Primary Care Provide r Reason for Visit * Reason Comments Follow-up Encounter Details Date Type Department Care Team (Late st Contact Info) Description 01/17/2019 1:00 PM MAIL OPENER Office Visit [address] [phone] Leonard Jasso, ANGIE [address] [place] [id number] Open wound of ankle with complication, right, subsequent encounter (Primary Dx) Social History Tobacco Use Types [...] Sign Reading Time Taken Comments Blood Pressure 106/80 01/17/2019 1:12 PM MAIL OPENER Pulse 86 01/17/2019 1:12 PM MAIL OPENER Temperature 36.2 ??C (97.2 ??F) 01/17/2019 1:12 PM CS T Respiratory Rate - - Oxygen Saturation 95% 01/17/2019 1:12 PM MAIL OPENER Inhaled Oxygen Concentration - - Weight 92.9 kg (204 lb 11.2 oz) 01/17/2019 1:12 PM MAIL OPENER Height 180.3 cm (5' 10.98 ) 01/17/2019 1:[address] Body Mass Index 28.56 01/17/2019 1:12 PM MAIL OPENER documented in this encounter Functional Status * Are you deaf or do you have serious difficulty hearing? Answer Date of Assessment Author No 10/25/2017 2:00 PM MAIL OPENER Deonna Galvan, EMERGENCY MEDICAL DISPATCHER * Are you blind or do you have serious difficulty seeing, even when wearing glasses? Answer Date of Assessment Author No 10/25/2017 2:00 PM MAIL OPENER Deonna Galvan, EMERGENCY MEDICAL DISPATCHER * Do you have serious difficulty walking or climbing stairs? (5 years old or older) Answer Date of Assessment Author No 10/25/2017 2:00 PM MAIL OPENER Deonna Galvan, EMERGENCY MEDICAL DISPATCHER * Do you have difficulty dressing or bathing? (5 years old or older) Answer Date of Assessment Author No 10/25/2017 2:00 PM MAIL OPENER Deonna Galvan, EMERGENCY MEDICAL DISPATCHER * Because of a physical, mental, or emotional condition, do you have difficulty doing errands alone such as visiting a doctor's office or shopping? (15 years old or older) Answer Date of Assessment Author No 10/25/2017 2:00 PM Deonna Padilla, EMERGENCY MEDICAL DISPATCHER documented as of this encounter Mental Status * Because of a physical, mental, or emotional condition, do you have serious difficulty concentrating, remembering, or making decisions? (5 years old or older) Answer Entry Date Author No 10/25/2017 2:00 PM Deonna Padilla, EMERGENCY MEDICAL DISPATCHER documented in this encounter Patient Instructions * Patient Instructions* Leonard Jasso APNP - 01/17/2019 1:00 PM MAIL OPENER Follow up in two weeks. Continue to cover with dry dressing right ankle wound. Do not pick at the wound. You will cause an infection again. OPENER documented in this encounter Progress Notes * Leonard Jasso APNP - 01/17/2019 1:00 PM CST Chief Complaint Patient presents with ??? Follow-up [address] [address] Dept: [phone] Dept Loc: [phone] Loc Date: 01/17/2019 Name: Edilberto Hawley : 1955 PCP: TIFFANI Galeano Subjective: Patient ID: Edilberto Hawley is a 63 y.o. male. Pt presents for follow up. Wound right lower extremity 3.5cm long and 2cm wide. Granulation tissue remains present at 95% with tendon covered now at lower aspect [...] Negative for activity change, appetite change, chills, fatigue and fever. HENT: Negative for congestion, ear pain, rhinorrhea, sinus pressure and sore throat. Eyes: Negative for pain, discharge and visual disturbance. Respiratory: Negative for cough, choking, shortness of breath and wheezing. Cardiovascular: Negative for chest pain and palpitations. Gastrointestinal: Negative for abdominal distention, abdominal pain, blood in stool, constipation, diarrhea, nausea and vomiting. Endocrine: Negative for cold intolerance and heat intolerance. Genitourinary: Negative for dysuria, frequency, hematuria and urgency. Skin: Positive for wound (Right lateral ankle. ). Allergic/Immunologic: Negative for environmental allergies and food allergies. Neurological: Negative for dizziness, tremors, speech difficulty, weakness and headaches. Psychiatric/Behavioral: Negative for agitation and behavioral problems. All other systems reviewed and are negative. Objective: Blood pressure 106/80, pulse 86, temperature 36.2 ??C (97.2 ??F), temperature source Tympanic, height 1.803 m (5' 10.98 ), weight 92.9 kg (204 lb 11.2 oz), SpO2 95 %., BMI Body mass index is 28.56 kg/m??. Physical Exam Constitutional: He is oriented to person, place, and time. He appears well- developed and well-nourished. No distress. HENT: Head: Normocephalic and atraumatic. Eyes: Pupils are equal, round, and reactive to light. Conjunctivae are normal. Neck: Normal range of motion. Neck supple. Cardiovascular: Normal rate, regular rhythm and normal heart sounds. Pulses: Dorsalis pedis pulses are 2+ on the right side. Posterior tibial pulses are 1+ on the right side. Pulmonary/Chest: Effort normal and breath sounds normal. No respiratory distress. He has no wheezes. Abdominal: Soft. He exhibits no distension. There is no tenderness. Genitourinary: Circumcised. Musculoskeletal: He exhibits no edema. Lymphadenopathy: He has no cervical adenopathy. Neurological: He is alert and oriented to person, place, and time. Skin: Skin is warm and dry. He is not diaphoretic. Lateral aspect of right ankle wound Psychiatric: He has a normal mood and affect. His behavior is normal. Nursing note and vitals reviewed. Assessment/Plan: Problem List Items Addressed This Visit None Visit Diagnoses Open wound of ankle with complication, right, subsequent encounter - Primary Follow up in two weeks. Continue to cover with dry dressing right ankle wound. Do not pick at the wound. You will cause an infection again. Next Visit: Follow-up in about 2 weeks (around 01/31/2019). Encounter of: 01/17/2019 Signed: TIFFANI Galeano 01/20/2019 8:35 AM OPENER documented in this encounter Plan of Treatment Not on file documented as of this encounter Goals Goal Patient Goal Type Associated Problems Recent Progress Patient-Stated? Author Blood Pressure < 140/90 Blood Pressure 134/86(2022 2:25 PM CDT) No Leonard Jasso APRN documented as of this encounter Visit Diagnoses Diagnosis Open wound of ankle with complication, right, subsequent encounter- Primary documented in this encounter Care Teams Natural Gas Plant Technician Relationship Specialty Start Date End Date Leonard Jasso APRN [address] [place] [address] PCP - General Family Medicine 11/25/18 08/14/19 Denny Dey DO Referring Physician Orthopedic Surgery 06/28/18 9 Lacey Perdue MD [address] [phone] Referring Physician Infectious Diseases 06/28/18 documented as of this encounter
--- OUTSIDE RECORDS SUMMARY | 2024-11-23 00:29 | XMS_ITS | Encounter Summary ---
Author Organization [employer] Address [address] [place] [address] Care Team Providers Care Client Architect Name Role Phone Denny Dey DO Unavailable Lacey Perdue MD Unavailable Leonard Jasso APRN Primary Care Provide r Leonard Jasso APRN Primary Care Provide r Reason for Visit * Reason Comments Follow-up pt is folllowing up on Right Ankle Pain Left Wrist Pain Encounter Details Date Type Department Care Team (Late st Contact Info) Description 01/31/2019 2:00 PM CDT Office Visit [address] [phone] Leonard Jasso APRN [address] [place] [phone] Open wound of ankle with complication, right, subsequent encounter (Primary Dx); Tear of left scapholunate ligament, subsequent encounter; Primary osteoarthritis, left wrist Social History Tobacco Use Types [...] Reading Time Taken Comments Blood Pressure 112/78 01/31/2019 2:01 PM CDT Pulse 90 01/31/2019 2:01 PM CDT Temperature 37.3 ??C (99.2 ??F) 01/31/2019 2:01 PM CD T Respiratory Rate 16 01/31/2019 2:01 PM CDT Oxygen Saturation 96% 01/31/2019 2:01 PM CDT Inhaled Oxygen Concentration - - Weight 91.6 kg (202 lb) 01/31/2019 2:01 PM CDT Height 180.3 cm (5' 11 ) 01/31/2019 2:01 PM CDT Body Mass Index 28.17 01/31/2019 2:01 PM CDT documented in this encounter Functional Status * Are you deaf or do you have serious difficulty hearing? Answer Date of Assessment Author No 10/25/2017 2:00 PM Deonna Padilla, ONLINE MARKETING DIRECTOR * Are you blind or do you have serious difficulty seeing, even when wearing glasses? Answer Date of Assessment Author No 10/25/2017 2:00 PM Deonna Padilla, ONLINE MARKETING DIRECTOR * Do you have serious difficulty walking or climbing stairs? (5 years old or older) Answer Date of Assessment Author No 10/25/2017 2:00 PM Deonna Padilla, ONLINE MARKETING DIRECTOR * Do you have difficulty dressing or bathing? (5 years old or older) Answer Date of Assessment Author No 10/25/2017 2:00 PM Deonna Padilla, ONLINE MARKETING DIRECTOR * Because of a physical, mental, or emotional condition, do you have difficulty doing errands alone such as visiting a doctor's office or shopping? (15 years old or older) Answer Date of Assessment Author No 10/25/2017 2:00 PM Deonna Padilla, ONLINE MARKETING DIRECTOR documented as of this encounter Mental Status * Because of a physical, mental, or emotional condition, do you have serious difficulty concentrating, remembering, or making decisions? (5 years old or older) Answer Entry Date Author No 10/25/2017 2:00 PM Deonna Padilla, ONLINE MARKETING DIRECTOR documented in this encounter Patient Instructions * Patient Instructions* Leonard Jasso APNP - 01/31/2019 2:00 PM CDT Take medications exactly as prescribed. [...] all that is documented in the agreement. Please keep splint in place until follow up and recommendations of Specialist. Please keep appt with Orthopedic Hand Surgeon for proper follow up. documented in this encounter Progress Notes * Leonard Jasso APNP - 01/31/2019 2:00 PM CDT Chief Complaint Patient presents with ??? Follow-up pt is folllowing up on Right Ankle Pain Left Wrist Pain [address] [address] Dept: [phone] Dept Loc: [phone] Loc Date: 01/31/2019 Name: Edilberto Person Chandan : 1955 PCP: TIFFANI Galeano Subjective: Patient ID: Edilberto Hawley is a 63 y.o. male. Pt presents for follow up. Wound right lower extremity 4.25cm long and 2cm wide. Granulation tissueremains present at 95% with tendon covered now at lower aspect of wound. Pt follows up with wound clinic for observation of healing wound. PP and PT pulse 2/4 right lower extremity. Extremity warm totouch with no fever. Pt seen in ER 01/18/19. Pt awoke with left wrist pain that morning. Pain was worse at base of the left first metacarpal and second metacarpal ant the distal radius. It was worse with ulnar deviation and flexion. Xray revealed possible dorsal subluxation of a metacarpal base. 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 Pt was placed in splint for left wrist. Pain was better with Toradol. Dre ABERNATHY called and spoke to me recommending referral to Orthopedist, Hand Surgeon, Dr. Adams. History provided by: Patient Patient's medications, allergies, [...] intolerance. Genitourinary: Negative for difficulty urinating. Musculoskeletal: Left wrist pain and pt wearing splint. Skin: Positive for wound (Right lower lateral ankle wound. ). Negative for rash. Allergic/Immunologic: Negative for environmental allergies and food allergies. Neurological: Negative for dizziness, tremors, speech difficulty, weakness and headaches. Psychiatric/Behavioral: Negative for agitation and behavioral problems. All other systems reviewed and are negative. Objective: Blood pressure 112/78, pulse 90, temperature 37.3 ??C (99.2 ??F), resp. rate 16, height 1.803 m (5'11 ), weight 91.6 kg (202 lb), SpO2 96 %., BMI Body mass index is 28.17 kg/m??. Physical Exam Constitutional: He is oriented [...] Genitourinary: Circumcised. Musculoskeletal: He exhibits no edema. Left wrist splint. Needs referral to Specialist. Lymphadenopathy: He has no cervical adenopathy. Neurological: [...] with complication, right, subsequent encounter - Primary Tear of left scapholunate ligament, subsequent encounter Relevant Orders Referral to Orthopedic Surgery Primary osteoarthritis, left wrist Relevant Medications oxyCODONE-acetaminophen (PERCOCET) 10-325 MG per tablet morphine (MS CONTIN) 30 MG extended release tablet Other Relevant Orders Referral to Orthopedic Surgery Take medications exactly as prescribed. Warm moist [...] all that is documented in the agreement. Please keep splint in place until follow up and recommendations of Specialist. Please keep appt with Orthopedic Hand Surgeon for proper follow up. Next Visit: Follow-up in about 1 month (around 03/03/2019). Encounter of: 01/31/2019 Signed: TIFFANI Galeano 02/04/2019 11:11 AM documented in this encounter Miscellaneous Notes * Addendum Note - Zoey Ramsey LPN - 01/31/2019 2:00 PM CDTAddended by: ZOEY RAMSEY on: 12/25/2019 11:53 AM Modules accepted: Orders INE STRAW HAT PRESSER documented in this encounter Plan of Treatment Not on file documented as of this encounter Goals Goal Patient Goal Type Associated Problems Recent Progress Patient-Stated? Author Blood Pressure < 140/90 Blood Pressure 134/86(2022 2:25 PM CDT) No Leonard Jasso APRN documented as of this encounter Visit Diagnoses Diagnosis Open wound of ankle with complication, right, subsequent encounter- Primary Tear of left scapholunate ligament, subsequent encounter Primary osteoarthritis, left wrist documented in this encounter Care Teams Client Architect Relationship Specialty Start Date End Date Leonard Jasso APRN [address] [place] [address] PCP - General Family Medicine 11/25/18 08/14/19 Leonard Jasso APRN [address] [facility] [address] [place] [address] PCP - General Family Medicine 08/15/19 04/30/21 Denny Dey DO Referring Physician Orthopedic Surgery 06/28/18 9 Lacey Perdue MD [address] [phone] Referring Physician Infectious Diseases 06/28/18 documented as of this encounter
--- OUTSIDE RECORDS SUMMARY | 2024-11-23 00:29 | XMS_ITS | Encounter Summary ---
Author Organization [facility] Address [address] [place] [address] Care Team Providers Care Well Logging Captain Mud Analysis Name Role Phone Denny Dey DO Unavailable [phone] Lacey Perdue MD Unavailable [phone] Leonard Jasso APRN Primary Care Provide r Reason for Referral * Referral (Routine) - Closed Specialty Diagnoses / Procedures Referred By Celine almaguer Referred To Contact General Surgery Diagnoses Gastroesophageal reflux disease without esophagitis Leonard Jasso APRN [address] [place] [place], [place] [address] Phone: tel: fax: Siddhartha Loyd MD [address] [place] [id number] Phone: tel: fax: Referral ID Status Reason Start Date Expiration Date V isits Requested Visits Authorized [id number] Closed Specialty Services Required 01/03/2019 01/03/2020 1 1 IC DANCER Reason for Visit * Reason Comments Follow-up 2 week follow-up lef t ankle wound Prostate Issues seen by urology and started on proscar-states he feels its helping increase urine flow Encounter Details Date Type Department Care Team (Late st Contact Info) Description 01/03/2019 8:15 AM EXOTIC DANCER Office Visit [address] [place] [address] Leonard Jasso, MEDICAID BILLING SPECIALIST [address] [place] [address] Open wound of ankle with complication, right, subsequent encounter (Primary Dx); Benign prostatic hyperplasia with incomplete bladder emptying; Gastroesophageal reflux disease without esophagitis Social History [...] Sign Reading Time Taken Comments Blood Pressure 124/68 01/03/2019 8:21 AM EXOTIC DANCER Pulse 82 01/03/2019 8:21 AM EXOTIC DANCER Temperature 36.6 ??C (97.9 ??F) 01/03/2019 8:21 AM CS T Respiratory Rate 18 01/03/2019 8:21 AM EXOTIC DANCER Oxygen Saturation 94% 01/03/2019 8:21 AM EXOTIC DANCER Inhaled Oxygen Concentration - - Weight 67.1 kg (148 lb) 01/03/2019 8:21 AM EXOTIC DANCER Height 180.3 cm (5' 10.98 ) 01/03/2019 8:[address] Body Mass Index 20.65 01/03/2019 8:21 AM EXOTIC DANCER documented in this encounter Functional Status * Are you deaf or do you have serious difficulty hearing? Answer Date of Assessment Author No 10/25/2017 2:00 PM EXOTIC DANCER Deonna Galvan ARNP * Are you blind or do you have serious difficulty seeing, even when wearing glasses? Answer Date of Assessment Author No 10/25/2017 2:00 PM EXOTIC DANCER Deonna Galvan ARNP * Do you have serious difficulty walking or climbing stairs? (5 years old or older) Answer Date of Assessment Author No 10/25/2017 2:00 PM Deonna Padilla ARNP * Do you have difficulty dressing or bathing? (5 years old or older) Answer Date of Assessment Author No 10/25/2017 2:00 PM EXOTIC DANCER Deonna Galvan, SWEET PICKLE MAKER * Because of a physical, mental, or emotional condition, do you have difficulty doing errands alone such as visiting a doctor's office or shopping? (15 years old or older) Answer Date of Assessment Author No 10/25/2017 2:00 PM EXOTIC DANCER Deonna Galvan S, SWEET PICKLE MAKER documented as of this encounter Mental Status * Because of a physical, mental, or emotional condition, do you have serious difficulty concentrating, remembering, or making decisions? (5 years old or older) Answer Entry Date Author No 10/25/2017 2:00 PM EXOTIC DANCER Deonna Galvan S, SWEET PICKLE MAKER documented in this encounter Patient Instructions * Patient Instructions* Leonard Jasso APNP - 01/03/2019 8:15 AM EXOTIC DANCER Avoid spicey food or foods high in acid. Avoid caffeine if possible because caffeine increases stomach acid. Avoid tight clothing. Weight loss can help acid reflux also. Take medication daily as prescribed. Over the counter Maximum Strength Antacid Liquid as needed for breakthrough acid reflux symptoms. Follow up if condition is not resolved with treatment. Continue current medications and follow up in two weeks. You will be contacted in regard to your referral to our General Surgeon for a scope of your throat.Please complete referral. IC DANCER documented in this encounter Progress Notes * Leonard Jasso APNP - 01/03/2019 8:15 AM CST Chief Complaint Patient presents with ??? Follow-up 2 week follow-up left ankle wound ??? Prostate Issues seen by urology and started on proscar-states he feels its helping increase urine flow Subjective: Patient ID: Edilberto Hawley is a 63 y.o. male. Right lateral ankle wound 4X2.5cm. Granulation tissue noted and covers tendon at about 90%. No drainage or infection noted. It does not appear the pt has been picking at wound like before. Pt complains of heart burn for years and requesting EGD. History provided by: Patient Wound Check He was originally treated more than 14 days ago. Previous treatment included IV/IM antibiotics, oral antibiotics, wound cleansing or irrigation and I&D of abscess. The maximum temperature noted was less than 100.4 F. The temperature was taken using an oral thermometer. There has been no drainage from the wound. There is no redness present. There is no swelling present. The pain has improved. He has no difficulty moving the affected extremity or digit. Gastroesophageal Reflux He complains of heartburn. He reports no abdominal pain, no belching, no chest pain, no choking, nocoughing, no dysphagia, no early satiety, no globus sensation, no hoarse voice, no nausea, no sore throat, no stridor, no water brash or no wheezing. This is a chronic problem. The current episode started more than 1 month ago. The problem occurs constantly. The problem has been gradually worsening. The heartburn duration is an hour. The heartburn is located in the substernum. The heartburn is ofmoderate intensity. The heartburn does not wake him from sleep. The heartburn does not limit his activity. The heartburn doesn't change with position. The symptoms are aggravated by certain foods. Per tinent negatives include no anemia, fatigue, melena, muscle weakness, orthopnea or weight loss. 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 Denies current alcohol use. He has tried nothing for the symptoms. Past procedures include an EGD (Ulcer history per pt. ). Past invasive treatments do not includegastroplasty, gastroplication or reflux surgery. Benign Prostatic Hypertrophy This is a chronic problem. The current episode started more than 1 month ago. The problem has been gradually improving since onset. Irritative symptoms do not include frequency, nocturia or urgency. Obstructive symptoms include incomplete emptying. Obstructive symptoms do not include dribbling, an intermittent stream, a slower stream, straining or a weak stream. Pertinent negatives include no chil ls, dysuria, genital pain, hematuria, hesitancy, nausea or vomiting. He is sexually active. Nothingaggravates the symptoms. Past treatments include finasteride and tamsulosin. The treatment providedmoderate relief. He has been using treatment for 1 to 7 days. Patient's problem list, medications, allergies, past medical, surgical, social and family historieswere reviewed and updated as appropriate. Review of Systems Constitutional: Negative for activity change, appetite change, chills, fatigue, fever and weight loss. HENT: Negative for congestion, ear pain, hoarse voice, rhinorrhea, sinus pressure and sore throat. Eyes: Negative for pain, discharge and visual disturbance. Respiratory: Negative for cough, choking, shortness of breath and wheezing. Cardiovascular: Negative for chest pain and palpitations. Gastrointestinal: Positive for heartburn. Negative for abdominal distention, abdominal pain, blood in stool, constipation, diarrhea, dysphagia, melena, nausea and vomiting. Endocrine: Negative for cold intolerance and heat intolerance. Genitourinary: Positive for incomplete emptying. Negative for dysuria, frequency, hematuria, hesitancy, nocturia and urgency. Musculoskeletal: Negative for muscle weakness. Skin: Positive for wound (Right lateral ankle. ). Allergic/Immunologic: Negative for environmental allergies and food allergies. Neurological: Negative for dizziness, tremors, speech difficulty, weakness and headaches. Psychiatric/Behavioral: Negative for agitation and behavioral problems. All other systems reviewed and are negative. Objective: BP 124/68 (BP Location: [facility], BP Position: sitting, BP Cuff Size: Reg) Pulse 82 Temp 36.6 ??C (97.9 ??F) (Tympanic) Resp 18 Ht 1.803 m (5' 10.98 ) Wt 67.1 kg (148 lb) SpO2 94% BMI 20.65 kg/m?? Body mass index is 20.65 kg/m??. Physical Exam Constitutional: He is oriented [...] of right ankle wound as described in ROS. Psychiatric: He has a normal mood and affect. His behavior is normal. Nursing note and vitals reviewed. Assessment/Orders: Diagnoses and all orders for this visit: Open wound of ankle with complication, right, subsequent encounter Benign prostatic hyperplasia with incomplete bladder emptying Gastroesophageal reflux disease without esophagitis - Referral to General Surgery Other orders - ranitidine (ZANTAC) 150 MG tablet; Take 1 tablet by mouth 2 (two) times daily. - morphine (MS CONTIN) 30 MG extended release tablet; Take 1 tablet by mouth every 12 (twelve) hours. - oxyCODONE-acetaminophen (PERCOCET) 10-325 MG per tablet; Take 1 tablet by mouth every 6 (six) hours as needed for Pain. Plan: Avoid spicey food or foods high in acid. Avoid caffeine if possible because caffeine increases stomach acid. Avoid tight clothing. Weight loss can help acid reflux also. Take medication daily as prescribed. Over the counter Maximum Strength Antacid Liquid as needed for breakthrough acid reflux symptoms. Follow up if condition is not resolved with treatment. Continue current medications and follow up in two weeks. You will be contacted in regard to your referral to our General Surgeon for a scope of your throat.Please complete referral. IC DANCER documented in this encounter Plan of Treatment Not on file documented as of this encounter Goals Goal Patient Goal Type Associated Problems Recent Progress Patient-Stated? Author Blood Pressure < 140/90 Blood Pressure 134/86(2022 2:25 PM CDT) No Leonard Jasso APRN documented as of this encounter Procedures Procedure Name Priority Date/Time Associated Diagnosis Comments AMB REFERRAL TO GENERAL SURGERY Routine 04/26/2019 11:45 AM CDT Gastroesophageal reflux disease without esophagitis documented in this encounter Results * Referral to General Surgery (04/26/2019 11:45 AM CDT) Narrative [facility] - 04/26/2019 11:45 AM CDT Note in Epic us Leonard Jasso APRN OUTPATIENT REFERRAL O RDERABLES Final Result [facility] [address] [place], [place] documented in this encounter Visit Diagnoses Diagnosis Open wound of ankle with complication, right, subsequent encounter- Primary Benign prostatic hyperplasia with incomplete bladder emptying Gastroesophageal reflux disease without esophagitis Esophageal reflux Gastroesophageal reflux disease, esophagitis presence not specified- Primary documented in this encounter Care Teams Well Logging Captain Mud Analysis Relationship Specialty Start Date End Date Leonard Jasso APRN [address] [place] [address] PCP - General Family Medicine 11/25/18 08/14/19 Denny Dey DO Referring Physician Orthopedic Surgery 06/28/18 9 Lacey Perdue MD [address] [phone] Referring Physician Infectious Diseases 06/28/18 documented as of this encounter
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
--- OUTSIDE RECORDS SUMMARY | 2024-11-23 00:29 | XMS_ITS | Encounter Summary ---
Author Organization [employer] Address [address] [place] [address] Care Team Providers Care Buzzsaw Operator Name Role Phone Denny Dey DO Unavailable [phone] Lacey Perdue MD Unavailable [phone] Leonard Jasso APRN Primary Care Provide r Reason for Visit * Reason Onset Date Comments reminder 06/12/2019 LS xray Encounter Details Date Type Department Care Team (Late st Contact Info) Description 06/12/[address] [address] Zoey Seaman, BAND TACKER [address] [facility] [address] [place] [address] reminder (LS xray ) Social History Tobacco Use Types Packs/Day [...] Author No 10/25/2017 2:00 PM Deonna Padilla, TURKEY FARMER * Do you have serious difficulty walking or climbing stairs? (5 years old or older) Answer Date of Assessment Author No 10/25/2017 2:00 PM Deonna Padilla, TURKEY FARMER * Do you have difficulty dressing or bathing? (5 years old or older) Answer Date of Assessment Author No 10/25/2017 2:00 PM Deonna Padilla, TURKEY FARMER * Because of a physical, mental, or [...] Telephone Encounter - Zoey Seaman LPN - 08/07/2019 10:18 AM CDT Reminder letter sent. * Telephone Encounter - Zoey Seaman LPN - 06/30/2019 11:18 AM CDT Patient reminded to do xray * Telephone Encounter - Zoey Seaman LPN - 06/12/2019 8:29 AM CDT Patient seen in the office today and reminded about xray order. States he has been working a lot will try to get it done this week. documented in this encounter Plan of Treatment Not on file documented as of this encounter Goals Goal Patient Goal Type Associated Problems Recent Progress Patient-Stated? Author Blood Pressure < 140/90 Blood Pressure 134/86(2022 2:25 PM CDT) No Leonard Jasso APRN documented as of this encounter Visit Diagnoses Not on filedocumented in this encounter Care Teams Buzzsaw Operator Relationship Specialty Start Date End Date Leonard Jasso APRN [address] [place] [address] PCP - General Family Medicine 11/25/18 08/14/19 Denny Dey DO Referring Physician Orthopedic Surgery 06/28/18 9 Lacey Perdue MD [address] [phone] Referring Physician Infectious Diseases 06/28/18 documented as of this encounter
--- OUTSIDE RECORDS SUMMARY | 2024-11-23 00:29 | XMS_ITS | Encounter Summary ---
Author Organization [facility] Address [address] [place] [address] Care Team Providers Care Mental Hygiene Consultant Name Role Phone Lacey Perdue MD Unavailable [phone] David Concepcion APRN Primary Care Provide r Encounter Details Date Type Department Care Team (Latest Contact Info) Description 08/16/2019 3:45 PM CDT - 08/16/2019 11:59 PM CDT Hospital Encounter [facility] Radiology [address] [place] [id number] Chronic bilateral low back pain without sciatica Discharge Disposition: Home - Discharge to Home [...] 10/25/2017 2:00 PM Deonna Padilla, GEORGE * Because of a physical, mental, or [...] this encounter Medications at Time of Discharge Multiple Vitamins-Minerals (ONE DAILY MULTIVITAMIN ADULT PO) Take by mouth. Probiotic Product (SOLUBLE FIBER/PROBIOTICS PO) Take 1 tablet by mouth daily. vitamin D (CHOLECALCIFEROL) 1000 units tablet Take 1,000 Units by mouth daily. amitriptyline (ELAVIL) 75 MG tablet Take 1 tablet by mouth nightly. 30 tablet 5 05/05/2019 9 baclofen (LIORESAL) 10 MG tablet Take 1 tablet by mouth nightly. 30 tablet 5 03/03/2019 0 benzonatate (TESSALON) 200 MG capsule Take 1 capsule by mouth 3 (three) times daily as needed for Cough. 30 capsule 02/17/2019 0 Diclofenac Sodium 1 % CREA Place onto the skin nightly as needed. 1 DULoxetine (CYMBALTA) 60 MG capsule Take 1 capsule by mouth daily. 30 capsule 5 05/05/2019 9 finasteride (PROSCAR) 5 MG tablet Take 5 mg by mouth daily. 1 ibuprofen (ADVIL,MOTRIN) 800 MG tablet Take 1 tablet by mouth every 8 (eight) hours as needed for Pain. 100 tablet 08/02/2018 0 naloxone (NARCAN) 2 MG/2ML injection USE DIRECTED 2 mL 2 11/25/2018 0 oxyCODONE-acetamin ophen (PERCOCET) 10-325 MG per tablet Take 1 tablet by mouth every 6 (six) hours as needed for Pain. 120 tablet 07/31/2019 9 ranitidine (ZANTAC) 150 MG tablet Take 1 tablet by mouth 2 (two) times daily. 60 tablet 5 01/03/2019 9 tamsulosin HCl (FLOMAX) 0.4 MG capsule Take [...] Name Priority Date/Time Associated Diagnosis Comments XR LUMBOSACRAL SPINE 2 OR 3 VIEWS Routine 08/16/2019 4:11 PM CDT Chronic bilateral low back pain without sciatica documented in this encounter Results * XR Lumbosacral Spine [...] AM T: ??08/18/2019 8:54 AM Report ID: [id number] Reading Location: ??[id number] Narrative 08/18/2019 8:54 AM CDT [address] [place] [address] Patient Name:EDILBERTO DURAND ?Accession Number: [id number] Patient ID Number:[id number] ?Approval Date: 08/18/2019 8:54 AM Date of [...] comparison examinations are available to assess for chart changer time.Bilateral facet arthropathy identified at the L4-5 and L5-S1 level. DISCS: Disc space narrowing with endplate hypertrophic change identified at the L2-3 level as well as the L4-5 and L5-S1 level. Procedure Note Dwain Mosqueda, - 08/18/[address] [place] [address] Patient Name:EDILBERTO DURAND Accession Number: [id number] Patient ID Number:[id number] Approval Date: 08/18/2019 8:54 AM Date of [...] No comparison examinations are available to assessfor chart changer time.Bilateral facet arthropathy identified at the L4-5 [...] Dwain Mosqueda D.O. BW: OVIDIO Report ID: [id number] Reading Location: [place] [address] David Concepcion APRN IMG DIAGNOSTIC IMAGIN G ORDERABLES Final Result documented in this encounter Visit Diagnoses Diagnosis Chronic bilateral low back pain without sciatica documented in this encounter Care Teams Mental Hygiene Consultant Relationship Specialty Start Date End Date David Concepcion APRN [address] [facility] [address] [place] [address] PCP - General Family Medicine 08/15/19 04/30/21 Lacey Perdue MD [address] [phone] Referring Physician Infectious Diseases 06/28/18 documented as of this encounter
--- OUTSIDE RECORDS SUMMARY | 2024-11-23 00:29 | XMS_ITS | Encounter Summary ---
Author Organization [facility] Address [address] [place] [address] Care Team Providers Care Gun Examiner Name Role Phone Denny Dey DO Unavailable [phone] Lacey Perdue MD Unavailable Leonard Jasso APRN Primary Care Provide r Reason for Visit * Reason Onset Date Comments Medication Refill 03/30/2019 Encounter Details Date Type Department Care Team (Late st Contact Info) Description 03/30/2019 Refill [facility] [address] [place] [address] [place] [address] Social History Tobacco Use Types [...] Author No 10/25/2017 2:00 PM Deonna Padilla, TRAVEL SERVICE CONSULTANT * Do you have serious difficulty walking or climbing stairs? (5 years old or older) Answer Date of Assessment Author No 10/25/2017 2:00 PM Deonna Padilla, TRAVEL SERVICE CONSULTANT * Do you have difficulty dressing or bathing? (5 years old or older) Answer Date of Assessment Author No 10/25/2017 2:00 PM Deonna Padilla, TRAVEL SERVICE CONSULTANT * Because of a physical, mental, or emotional condition, do you have difficulty doing errands alone such as visiting a doctor's office or shopping? (15 years old or older) Answer Date of Assessment Author No 10/25/2017 2:00 PM Deonna Padilla, TRAVEL SERVICE CONSULTANT documented as of this encounter Mental [...] on filedocumented in this encounter Care Teams Gun Examiner Relationship Specialty Start Date End Date Leonard Jasso APRN [address] [place] [address] PCP - General Family Medicine 11/25/18 08/14/19 Denny Dey DO Referring Physician Orthopedic Surgery 06/28/18 9 Lacey Perdue MD [address] [phone] Referring Physician Infectious Diseases 06/28/18 documented as of this encounter
--- OUTSIDE RECORDS SUMMARY | 2024-11-23 00:29 | XMS_ITS | Encounter Summary ---
Author Organization [employer] Address [address] [place] [address] Care Team Providers Care Lobby Attendant Name Role Phone Denny Dey DO Unavailable [phone] Lacey Perdue MD Unavailable [phone] Leonard Jasso APRN Primary Care Provide r Reason for Visit * Reason Comments Wrist Pain pt states that pain started this am without trauma or injury; pt states pain is located in central wrist that increases with pressure without numbness or tingling Encounter Details Date Type Department Care Team (Late st Contact Info) Description 01/18/2019 3:12 PM [facility] - 01/18/2019 5:16 PM [facility] Emergency [facility] [address] [place] [address] Sin Rosas PA-C [address] [place], [place] [id number] Primary osteoarthritis of left wrist (Primary Dx) Discharge Disposition: Home - Discharge [...] Sign Reading Time Taken Comments Blood Pressure 116/80 01/18/2019 3:19 PM [facility] Pulse 96 01/18/2019 3:19 PM [facility] Temperature 37.6 ??C (99.7 ??F) 01/18/2019 3:19 PM CS T Respiratory Rate 16 01/18/2019 3:19 PM [facility] Oxygen Saturation 95% 01/18/2019 3:19 PM [facility] Inhaled Oxygen Concentration - - Weight 88 kg (194 lb) 01/18/2019 3:19 PM [facility] Height 180.3 cm (5' 11 ) 01/18/2019 3:19 PM [facility] Body Mass Index 27.06 01/18/2019 3:19 PM [facility] documented in this encounter Functional Status * Are you deaf or do you have serious difficulty hearing? Answer Date of Assessment Author No 10/25/2017 2:00 PM [facility] Deonna Galvan, FLASH DESIGNER * Are you blind or do you have serious difficulty seeing, even when wearing glasses? Answer Date of Assessment Author No 10/25/2017 2:00 PM [facility] Deonna Galvan S, FLASH DESIGNER * Do you have serious difficulty walking or climbing stairs? (5 years old or older) Answer Date of Assessment Author No 10/25/2017 2:00 PM [facility] Deonna Galvan, FLASH DESIGNER * Do you have difficulty dressing or bathing? (5 years old or older) Answer Date of Assessment Author No 10/25/2017 2:00 PM [facility] Deonna Galvan S, FLASH DESIGNER * Because of a physical, mental, or emotional condition, do you have difficulty doing errands alone such as visiting a doctor's office or shopping? (15 years old or older) Answer Date of Assessment Author No 10/25/2017 2:00 PM [facility] Deonna Galvan, FLASH DESIGNER documented as of this encounter Mental Status * Because of a physical, mental, or emotional condition, do you have serious difficulty concentrating, remembering, or making decisions? (5 years old or older) Answer Entry Date Author No 10/25/2017 2:00 PM [facility] Deonna Galvan, FLASH DESIGNER documented in this encounter Discharge Instructions * Discharge Instructions* Sin Rosas PA-C - 01/18/2019 5:07 PM [facility] Wear your splint until evaluation with orthopedics is done. Follow-up with Dylan in 2 days. Continueall of your medication as prescribed. AGE CANNER * Attachments The following attachments cannot be sent through Care Everywhere. * Osteoarthritis (Sammarinese) documented in this encounter Medications at Time of Discharge Multiple Vitamins-Minerals (ONE DAILY MULTIVITAMIN ADULT PO) Take by mouth. Probiotic Product (SOLUBLE FIBER/PROBIOTICS PO) Take 1 tablet by mouth daily. vitamin D (CHOLECALCIFEROL) 1000 units tablet Take 1,000 Units by mouth daily. amitriptyline (ELAVIL) 75 MG tablet TAKE ONE TABLET NIGHTLY 30 tablet 5 11/23/2018 9 baclofen (LIORESAL) 10 MG tablet Take 1 tablet by mouth nightly. 30 tablet 5 08/09/2018 9 Diclofenac Sodium 1 % CREA Place onto the skin nightly as needed. 1 DULoxetine (CYMBALTA) 60 MG capsule Take 1 capsule by mouth daily. 30 capsule 1 10/30/2017 9 finasteride (PROSCAR) 5 MG tablet Take 5 mg by mouth daily. 1 fluticasone NASAL (FLONASE) 50 MCG/ACT nasal spray 2 sprays by Nasal route daily as needed for Rhinitis. to each nostril 9 ibuprofen (ADVIL,MOTRIN) 800 MG tablet Take 1 tablet by mouth every 8 (eight) hours as needed for Pain. 100 tablet 08/02/2018 0 morphine (MS CONTIN) 30 MG extended release tablet Take 1 tablet by mouth every 12 (twelve) hours. 60 tablet 01/03/2019 9 naloxone (NARCAN) 2 MG/2ML injection USE DIRECTED 2 mL 2 11/25/2018 0 oxyCODONE-acetamin ophen (PERCOCET) 10-325 MG per tablet Take 1 tablet by mouth every 6 (six) hours as needed for Pain. 120 tablet 01/03/2019 9 ranitidine (ZANTAC) 150 MG tablet Take 1 tablet by mouth 2 (two) times daily. 60 tablet 5 01/03/2019 9 tamsulosin HCl (FLOMAX) 0.4 MG capsule Take 1 capsule by mouth daily. 30 capsule 5 11/04/2018 1 documented as of this encounter ED Notes * Sin Rosas PA-C - 01/18/2019 3:44 PM CST History Chief Complaint Patient presents with ??? Wrist Pain pt states that pain started this am without trauma or injury; pt states pain is located in central wrist that increases with pressure without numbness or tingling This is a 63-year-old male patient that awoke this morning with left wrist pain. Pain seems to be at the base of the left first metacarpal and second metacarpal and the distal radius. It is worse with ulnar deviation and flexion. He has not had any injury to this. He does have a wound on his ankle that is being cared for by surgery and is afraid that he might have gotten a bone infection in that wrist. He has had screws in his right wrist because of severe arthritis but no trauma. He has not had any recent fever or chills. He has not noticed any significant swelling or effusion over the area.He denies a history of gout. The history is provided by the patient. Past Medical History: Diagnosis Date ??? Arthritis ??? Back injury ??? Chronic back pain greater than 3 months duration ??? GERD (gastroesophageal reflux disease) ??? Migraines ??? Osteomyelitis of ankle or foot, acute, right ([facility]) 2018 Stepped on nail ??? Shoulder injury ??? Substance abuse ([facility]) cocaine, crystal meth nothing since 1996 [...] of Onset ??? Dementia Mother Social History Substance Use Topics ??? Smoking status: Never Smoker ??? Smokeless tobacco: Never Used ??? Alcohol use No Review of Systems Constitutional: Negative for chills and fever. Musculoskeletal: Positive for arthralgias (left wrist). Negative for joint swelling. Neurological: Negative for weakness and numbness. Allergies / Sensitivities No Known Allergies Current Immunization Status per Nursing Immunization Hx There is no immunization history on file for this patient. Physical Exam BP 116/80 Pulse 96 Temp 37.6 ??C (99.7 ??F) (Temporal) Resp 16 Ht 1.803 m (5' 11 ) Wt 88 kg (194 lb) SpO2 95% BMI 27.06 kg/m?? Physical Exam Constitutional: He appears well-developed and well-nourished. No distress. Musculoskeletal: Left wrist at the base of the first and second metacarpal does show to be a little bit more [place] on the right side. He has tenderness at the carpal metacarpal joint area between the second and third metacarpals. Edwin test is also positive. He has no weakness with his fingers in either flexion or extension. Flexion of his wrist increases his pain. Extension of his wrist does not increase his pain. He has no pain with pronation or supination of the elbow. Nursing note and vitals reviewed. 01/18/2019 ED Lab Results URIC ACID Result Value Ref Range Uric Acid 6.9 3.5 - 7.2 mg/dL Imaging / Studies reviewed: Imaging Results XR Wrist Min 3 Views (Final result) Result time 01/18/19 16:39:09 Final result by Kerwin Green MD (01/18/19 16:39:09) Impression: 1.Possible dorsal subluxation of a metacarpal base, seen only on the lateral projection. Correlation with physical examination and consideration of additional views is recommended. 2.No radiographic evidence of acute fracture. 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 4.Chronic scapholunate ligament tear. THIS IS AN ELECTRONICALLY VERIFIED FINAL REPORT 01/18/2019 4:39 PM - Electronically signed by Kerwin Green M.D. RT: RT Report ID: [id number] Reading Location: [id number] Narrative: [place] [id number] [place] [address] Patient Name:EDILBERTO DURAND Accession Number: [id number] Patient ID Number:[id number] Approval Date: 01/18/2019 4:39 PM Date of :1955 Imaging Date: 01/18/2019 Gender:M Referring Physician:SIN ROSAS Exam Description:XR WRIST MIN 3 VIEWS Stay Type: EXAM DESCRIPTION: XR WRIST MIN 3 VIEWS REASON FOR STUDY: Limited range of motion left wrist for 1 day; no reported trauma TECHNIQUE: Three-view examination of the left wrist is performed. COMPARISON: None available. FINDINGS: No radiographic evidence of acute fracture. On the lateral projection, there is dorsal subluxation of the metacarpal base, which is greater than is typically seen. There is polyarticular pmvx-ph-qzheyvkf osteoarthritis, moderate to severe at the basal thumb joint. 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 Negative ulnar variance present. Small ossified loose bodies are present at the basal thumb joint. ED Course Procedures Clinical Impressions as of Jan 19 1708 Primary osteoarthritis of left wrist Patient will be placed in a wrist splint. His pain is much better with the Toradol. He is on chronic pain medication and will continue this as needed. I did get a hold of his PCP, who will arrange for orthopedic referral. His uric acid is also elevated. He may need to be treated for hyperuricemia. Plan: Current Discharge Medication List Disposition: Discharge Follow-up Information TIFFANI Galeano In 2 days. Specialties: Family Medicine, Nurse Practitioner Contact information: [address] [place] [phone] [facility] Number of Diagnoses or Management Options Primary osteoarthritis of left wrist: new and requires workup Amount and/or Complexity of Data Reviewed Clinical lab tests: ordered and reviewed Tests in the radiology section of CPT??: ordered and reviewed Discuss the patient with other providers: yes Independent visualization of images, tracings, or specimens: yes Risk of Complications, Morbidity, and/or Mortality Presenting problems: low Diagnostic procedures: low Management options: low Patient Progress Patient progress: improved Sin Rosas PA-C 01/18/19 1710 Cosigned by Rickey Bailey DO at 01/19/2019 10:46 AM [facility] AGE CANNER AGE CANNER documented in this encounter Plan of Treatment Not on file documented as of this encounter Goals Goal Patient Goal Type Associated Problems Recent Progress Patient-Stated? Author Blood Pressure < 140/90 Blood Pressure 134/86(2022 2:25 PM CDT) No Leonard Jasso APRN documented as of this encounter Procedures Procedure Name Priority Date/Time Associated Diagnosis Comments XR WRIST MIN 3 VIEWS STAT 01/18/2019 4:17 PM [facility] URIC ACID STAT 01/18/2019 3:49 PM [facility] documented in this encounter Results * XR Wrist Min 3 Views (01/18/2019 4:17 PM [facility]) Anatomical Region Laterality Modality Forearm, Wrist, Hand Computed Ra diography 01/18/2019 4:35 PM [facility] Impressions 01/18/2019 4:39 PM [facility] 1.Possible dorsal subluxation of a metacarpal base, seen only on the lateral projection. ??Correlation with physical examination and consideration of additional views is recommended. 2.No radiographic evidence of acute fracture. 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 4.Chronic scapholunate ligament tear. THIS IS AN ELECTRONICALLY VERIFIED FINAL REPORT 01/18/2019 4:39 PM - Electronically signed by Kerwin Green M.D. RT: RT D: ??01/18/2019 4:39 PM T: ??01/18/2019 4:39 PM Report ID: [id number] Reading Location: ??[id number] Narrative 01/18/2019 4:39 PM [facility] [address] [place] [address] Patient Name:EDILBERTO DURAND ?Accession Number: [id number] Patient ID Number:[id number] ?Approval Date: 01/18/2019 4:39 PM Date of :1955 ? Imaging Date: 01/18/2019 Gender:M ?Referring Physician:SIN ROSAS Exam Description:XR WRIST MIN 3 VIEWS ??Stay Type: EXAM DESCRIPTION: ??XR WRIST MIN 3 VIEWS REASON FOR STUDY: ??Limited range of motion left wrist for 1 day; no reported trauma TECHNIQUE: ??Three-view examination of the left wrist is performed. COMPARISON: ??None available. FINDINGS: ??No radiographic evidence of acute fracture. On the lateral projection, there is dorsal subluxation of the metacarpal base, which is greater than is typically seen. There is polyarticular hykm-yq-zhhasmes osteoarthritis, moderate to severe at the basal thumb joint. 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 ??Negative ulnar variance present. ??Small ossified loose bodies are present at the basal thumb joint. Procedure Note Kerwin Green MD - 01/18/2019 [place] [address] Patient Name:EDILBERTO DURAND Accession Number: [id number] Patient ID Number:[id number] Approval Date: 01/18/2019 4:39 PM Date of :1955 Imaging Date: 01/18/2019 Gender:M Referring Physician:SIN ROSAS Exam Description:XR WRIST MIN 3 VIEWS Stay Type: EXAM DESCRIPTION: XR WRIST MIN 3 VIEWS REASON FOR STUDY: Limited range of motion left wrist for 1 day; noreported trauma TECHNIQUE: Three-view examination of the left wrist is performed. COMPARISON: None available. FINDINGS: No radiographic evidence of acute fracture. On the lateral projection, there is dorsal subluxation of the metacarpalbase, which is greater than is typically seen. There is polyarticular djra-mx-fzbsoekc osteoarthritis, moderate to severeat the basal thumb joint. There is chronic tear of the scapholunate ligament, with associatedwidening of the scapholunate interval. Negative ulnar variance present. Small ossified loose bodies are present at the basal thumb joint. IMPRESSION: 1.Possible dorsal subluxation of a metacarpal base, seen only on thelateral projection. Correlation with physical examination and consideration of additional views is recommended. 2.No radiographic evidence of acute fracture. 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 4.Chronic scapholunate ligament tear. THIS IS AN ELECTRONICALLY VERIFIED FINAL REPORT 01/18/2019 4:39 PM - Electronically signed by Kerwin Green M.D. RT: RT Report ID: [id number] Reading Location: [place] [address] Sin Rosas PA-C IMG DIAGNOSTIC IMAGING ORDERAB LES Final Result * Uric acid (01/18/2019 3:49 PM [facility]) Uric Acid 6.9 3.5 - 7.2 mg/dL 01/18/2019 4:17 PM [facility] [employer] Serum specimen (specimen) 01/18/2019 3:49 PM [facility] 01/18/2019 3:50 PM [facility] Sin Rosas PA-C LAB BLOOD ORDERABLES Final Res ult [facility] [address] documented in this encounter Visit Diagnoses Diagnosis Primary osteoarthritis of left wrist- Primary Primary localized osteoarthrosis, forearm documented in this encounter Administered Medications Inactive Administered Medications - up to 3 most recent administrations Medication Order MAR Action Action Date Dose Rate Site ketorolac (TORADOL) injection 30 mg, Intramuscular, ONCE, On Wed01/18/19 at 1600, For 1 dose Given 01/18/2019 3:41 PM [facility] 30 mg Left Deltoid documented in this encounter Active and Recently Administered Medications Times are shown in [facility]. Scheduled Medication Order 01/16/2019 01/17/2019 01/18/2019 ketorolac (TORADOL) injection (COMPLETED) 30 mg, Intramuscular, ONCE, On Wed01/18/19 at 1600, For 1 dose 1541 (Given - Provid er: Sadena D Dawson, RN) documented in this encounter Care Teams Lobby Attendant Relationship Specialty Start Date End Date Leonard Jasso APRN [address] [place] [address] PCP - General Family Medicine 11/25/18 08/14/19 Denny Dey DO Referring Physician Orthopedic Surgery 06/28/18 9 Lacey Perdue MD [address] [address] Referring Physician Infectious Diseases 06/28/18 documented as of this encounter
--- OUTSIDE RECORDS SUMMARY | 2024-11-23 00:29 | XMS_ITS | Encounter Summary ---
Author Organization [employer] Address [address] [place] [address] Care Team Providers Care Dry Janitor Name Role Phone Denny Dey DO Unavailable [phone] Lacey Perdue MD Unavailable Leonard Jasso APRN Primary Care Provide r Reason for Visit * Reason Onset Date Comments Medication Refill 04/03/2019 Encounter Details Date Type Department Care Team (Late st Contact Info) Description 04/03/2019 Refill [facility] [address] [place] [address] [address] [place] [address] Social History Tobacco Use Types [...] Author No 10/25/2017 2:00 PM Deonna Padilla, REPAIRER VENEER SHEET * Do you have serious difficulty walking or climbing stairs? (5 years old or older) Answer Date of Assessment Author No 10/25/2017 2:00 PM Deonna Padilla, REPAIRER VENEER SHEET * Do you have difficulty dressing or bathing? (5 years old or older) Answer Date of Assessment Author No 10/25/2017 2:00 PM Deonna Padilla, REPAIRER VENEER SHEET * Because of a physical, mental, or emotional condition, do you have difficulty doing errands alone such as visiting a doctor's office or shopping? (15 years old or older) Answer Date of Assessment Author No 10/25/2017 2:00 PM Deonna Padilla, REPAIRER VENEER SHEET documented as of this encounter Mental Status [...] on filedocumented in this encounter Care Teams Dry Janitor Relationship Specialty Start Date End Date Leonard Jasso APRN [address] [place] [address] PCP - General Family Medicine 11/25/18 08/14/19 Denny Dey DO Referring Physician Orthopedic Surgery 06/28/18 9 Lacey Perdue MD [address] [address] Referring Physician Infectious Diseases 06/28/18 documented as of this encounter
--- OUTSIDE RECORDS SUMMARY | 2024-11-23 00:29 | XMS_ITS | Encounter Summary ---
Author Organization [employer] Address [address] [place] [address] Care Team Providers Care Hand Embroiderer Name Role Phone Lacey Perdue MD Unavailable [phone] Leonard Jasso APRN Primary Care Provide r Reason for Visit * Reason Onset Date Comments results x-ray 08/18/2019 Encounter Details Date Type Department Care Team (Late st Contact Info) Description 08/18/2019 Telephone [facility] [address] [place] [address] Anna Gordillo, QA SPECIALIST [address] [facility] [address] [place] [address] results x-ray Social History Tobacco Use Types Packs/Day Years [...] Author No 10/25/2017 2:00 PM Deonna Padilla, LABORER * Are you blind or do you have serious difficulty seeing, even when wearing glasses? Answer Date of Assessment Author No 10/25/2017 2:00 PM Deonna Padilla, LABORER * Do you have serious difficulty walking or climbing stairs? (5 years old or older) Answer Date of Assessment Author No 10/25/2017 2:00 PM Deonna Padilla S, LABORER * Do you have difficulty dressing or bathing? (5 years old or older) Answer Date of Assessment Author No 10/25/2017 2:00 PM Deonna Padilla S, LABORER * Because of a physical, mental, or emotional condition, do you have difficulty doing errands alone such as visiting a doctor's office or shopping? (15 years old or older) Answer Date of Assessment Author No 10/25/2017 2:00 PM Deonna Padilla, LABORER documented as of this encounter Mental Status * Because of a physical, mental, or emotional condition, do you have serious difficulty concentrating, remembering, or making decisions? (5 years old or older) Answer Entry Date Author No 10/25/2017 2:00 PM Deonna Padilla, LABORER documented in this encounter Miscellaneous Notes * Telephone Encounter - Anna Gordillo LPN - 08/18/2019 4:48 PM CDT Patient notified of results of x-ray and recomendation for MRI stated will talk with Dylan John at appt * Telephone Encounter - Anna Gordillo LPN - 08/18/2019 4:47 PM CDT ----- Message from TIFFANI Galeano sent at 08/18/2019 1:20 PM CDT ----- X-ray of lumbar spine reveals a mild wedge compression of the L3 vertebral body, uncertain length of time present. There are no other examinations to compare these x-rays to assess for change of her time. Bilateral arthritis identified lumbar vertebrae 4 and 5 and lumbar vertebrae 5 to S1. Some disc space narrowing is identified at the L2-3 level, L4-5 level, and L5-S1 level. I would recommend anMRI for further assessment of soft tissues and discs due to patient complaints of chronic pain. documented in this encounter Plan of Treatment Not on file documented as of this encounter Goals Goal Patient Goal Type Associated Problems Recent Progress Patient-Stated? Author Blood Pressure < 140/90 Blood Pressure 134/86(2022 2:25 PM CDT) No Leonard Jasso APRN documented as of this encounter Visit Diagnoses Not on filedocumented in this encounter Care Teams Hand Embroiderer Relationship Specialty Start Date End Date Leonard Jasso APRN [address] [facility] [address] [place] [address] PCP - General Family Medicine 08/15/19 04/30/21 Lacey Perude MD [address] [phone] Referring Physician Infectious Diseases 06/28/18 documented as of this encounter
--- OUTSIDE RECORDS SUMMARY | 2024-11-23 00:29 | XMS_ITS | Encounter Summary ---
Author Organization [employer] Address [address] [place] [address] Care Team Providers Care Release And Technical Records Clerk Name Role Phone Lacey Perdue MD Unavailable [phone] Leonard Jasso APRN Primary Care Provide r Encounter Details Date Type Department Care Team (Latest Contact Info) Description 08/23/2019 9:00 AM CDT - 08/23/2019 12:53 PM CDT Hospital Encounter [facility] [address] [place] [phone] SAPHO syndrome Discharge Disposition: Home - Discharge to Home [...] tablet Take 500 mg by mouth daily. Multiple Vitamins-Minerals (ONE DAILY MULTIVITAMIN ADULT PO) [...] Procedure Name Priority Date/Time Associated Diagnosis Comments CREATININE, BLOOD Routine 08/23/2019 12: 50 PM CDT SAPHO syndrome documented in this encounter Results * Creatinine, Blood (08/23/2019 12:50 PM CDT) Creatinine 1.02 0.70 - 1.30 mg/dL 08/23/2019 1:26 PM [facility] Creatinine Based eGFR >60 08/23/2019 1:26 PM [facility] Comment: GFR REFERENCE RANGE: >60 mL/min/1.73m2 -- An eGFR of > than, or = to 60, may indicate normal renal function or mildly decreased GFR. EGFR /Karla n >60 08/23/2019 1:26 PM [facility] Comment: -- An eGFR of > than, or = to 60, may indicate normal renal function or mildly decreased GFR. 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
--- OUTSIDE RECORDS SUMMARY | 2024-11-23 00:29 | XMS_ITS | Encounter Summary ---
Author Organization [employer] Address [address] [place] [address] Care Team Providers Care Rectification Printer Name Role Phone Lacey Perdue MD Unavailable [phone] Leonard Jasso APRN Primary Care Provide r Encounter Details Date Type Department Care Team (Latest Contact Info) Description 08/23/2019 Transcribe Orders [facility] [address] [place] [address] [address] [place] [id number] Merna Bradley, [address] [place] [address] SAPHO syndrome (Primary Dx) Social History Tobacco Use [...] of Assessment Author No 10/25/2017 2:00 PM FNP Galvan, A my S, BRILLIANDEER LOPPER * Do you have serious difficulty walking or climbing stairs? (5 years old or older) Answer Date of Assessment Author No 10/25/2017 2:00 PM Deonna Padilla S, BRILLIANDEER LOPPER * Do you have difficulty dressing or bathing? (5 years old or older) Answer Date of Assessment Author No 10/25/2017 2:00 PM JOHN Galvan Am y S, BRILLIANDEER LOPPER * Because of a physical, mental, or emotional condition, do you have difficulty doing errands alone such as visiting a doctor's office or shopping? (15 years old or older) Answer Date of Assessment Author No 10/25/2017 2:00 PM JOHN Galvan Am y S, BRILLIANDEER LOPPER documented as of this encounter Mental Status * Because of a physical, mental, or emotional condition, do you have serious difficulty concentrating, remembering, or making decisions? (5 years old or older) Answer Entry Date Author No 10/25/2017 2:00 PM Deonna Padilla S, BRILLIANDEER LOPPER documented in this encounter Plan of Treatment Not on file documented as of this encounter Goals Goal Patient Goal Type Associated Problems Recent Progress Patient-Stated? Author Blood Pressure < 140/90 Blood Pressure 134/86(2022 2:25 PM CDT) No Leonard Jasso APRN documented as of this encounter Results * Creatinine, Blood (08/23/2019 12:50 PM CDT) Creatinine 1.02 0.70 - 1.30 mg/dL 08/23/2019 1:26 PM [facility] Creatinine Based eGFR >60 08/23/2019 1:26 PM [facility] Comment: GFR REFERENCE RANGE: >60 mL/min/1.73m2 -- An eGFR of > than, or = to 60, may indicate normal renal function or mildly decreased GFR. EGFR /Karla n >60 08/23/2019 1:26 PM [facility] Comment: -- An eGFR of > than, or = to 60, may indicate normal renal function or mildly decreased GFR. Serum specimen (specimen) 08/23/2019 12:50 PM CDT 08/23/2019 12:57 PM CDT Sunil Light MD LAB BLOOD ORDERABLES Final Res ult [facility] [address] [place] [address] [place] [address] documented in this encounter Visit Diagnoses Diagnosis SAPHO syndrome- Primary Traumatic spondylopathy documented in this encounter Care Teams Rectification Printer Relationship Specialty Start Date End Date Leonard Jasso APRN [address] [facility] [address] [place] [address] PCP - General Family Medicine 08/15/19 04/30/21 Lacey Perdue MD [address] [phone] Referring Physician Infectious Diseases 06/28/18 documented as of this encounter
--- OUTSIDE RECORDS SUMMARY | 2024-11-23 00:29 | XMS_ITS | Encounter Summary ---
Author Organization [employer] Address [address] [place] [address] Care Team Providers Care Certified Coder Name Role Phone Denny Dey Maya TAYLOR Unavailable Lacey Perdue MD Unavailable Leonard Jasso APRN Primary Care Provide r Reason for Referral * Referral (Routine) - Closed Specialty Diagnoses / Procedures Referred By Celine almaguer Referred To Contact Wound Care Diagnoses Open wound of ankle with complication, right, subsequent encounter Sebastián Siegel DO [address] [address] Phone: tel: fax: Sebastián Siegel DO [address] [place] [address] Phone: tel: fax: Referral ID Status Reason Start Date Expiration Date V isits Requested Visits Authorized [id number] Closed Specialty Services Required 06/12/2019 06/11/2020 1 1 Reason for Visit * Reason Comments Back Pain Encounter Details Date Type Department Care Team (Late st Contact Info) Description 06/12/2019 8:15 AM CDT Office Visit [address] [address] Leonard Jasso, ANGIE [address] [place] [address] Open wound of ankle with complication, right, subsequent encounter (Primary Dx); Chronic bilateral low back pain without sciatica [...] Sign Reading Time Taken Comments Blood Pressure 110/76 06/12/2019 8:07 AM CDT Pulse 85 06/12/2019 8:07 AM CDT Temperature 36.8 ??C (98.2 ??F) 06/12/2019 8:07 AM CD T Respiratory Rate - - Oxygen Saturation 96% 06/12/2019 8:07 AM CDT Inhaled Oxygen Concentration - - Weight 84.8 kg (187 lb) 06/12/2019 8:07 AM CDT Height 180.3 cm (5' 11 ) 06/12/2019 8:07 AM CDT Body Mass Index 26.08 06/12/2019 8:07 AM CDT documented in this encounter Functional [...] * Patient Instructions* Leonard Jasso APNP - 06/12/2019 8:15 AM CDT Take medications exactly as prescribed. [...] all that is documented in the agreement. We will refer you to [facility] for second opinion of right ankle wound. You will be contacted with time and date. Follow up in 3 months. documented in this encounter Progress Notes * Leonard Jasso APNP - 06/12/2019 8:15 AM CDT Chief Complaint Patient presents with ??? Back Pain [address] [address] Dept: [phone] Dept Loc: [phone] Loc Date: 06/12/2019 Name: Edilberto Hawley : 1955 PCP: TIFFANI Galeano Subjective: Patient ID: Edilberto Hawley is a 63 y.o. male. Pt presents for follow up. Wound right lower extremity 4.5 cm long and 2.5cm wide. Pt wound has regressed and worsened a little. Granulation tissue remains present at 100% with tendon covered now at lower aspect of wound. Pt follows up with wound clinic for observation of healing wound. Last visit to wound clinic 10 days ago per pt. He is evaluated every two weeks by wound clinic. PP and PT pulse2/4 right lower extremity. Extremity warm to touch with no fever. Pt states he is not satisfied with wound clinic results at [facility]. He is requesting a second opinion. History provided by: Patient Back Pain This [...] headaches,nausea, rash, sore throat, urinary symptoms, vertigo, visual change, vomiting or weakness. The symptoms are aggravated by standing, twisting, bending and walking. He has tried oral narcotics, NSAIDs,rest, sleep, position changes and lying down for [...] reviewed and are negative. Objective: Blood pressure 110/76, pulse 85, temperature 36.8 ??C (98.2 ??F), height 1.803 m (5' 11 ), weight 84.8 kg (187 lb), SpO2 96 %., BMI Body mass index is 26.08 kg/m??. Physical Exam Constitutional: He is oriented [...] Genitourinary: Circumcised. Musculoskeletal: He exhibits no edema. Lumbar back: He exhibits tenderness (Left paraspinal muscles. ), pain (Left paraspinal muscles. ) and spasm (Left paraspinal.). He exhibits normal range of motion, no bony tenderness, no swelling, noedema, no deformity and no laceration. DTR's bilateral lower extremities 2/4. No paresthesia or radiating pain at this time. Pt has discontinued morphine sulfate and weaned self off. Great toe lift strong bilaterally. Lymphadenopathy: He has no cervical adenopathy. Neurological: [...] with complication, right, subsequent encounter - Primary Relevant Orders Referral to Wound Clinic Chronic bilateral low back pain without sciatica Take medications exactly as prescribed. Warm moist [...] all that is documented in the agreement. We will refer you to [facility] for second opinion of right ankle wound. You will be contacted with time and date. Follow up in 3 months. Next Visit: Follow-up in about 3 months (around 09/12/2019), or if symptoms worsen or fail to improve. Encounter of: 06/12/2019 Signed: TIFFANI Galeano 06/12/2019 11:16 AM documented in this encounter Plan of Treatment Not on file documented as of this encounter Goals Goal Patient Goal Type Associated Problems Recent Progress Patient-Stated? Author Blood Pressure < 140/90 Blood Pressure 134/86(2022 2:25 PM CDT) No Leonard Jasso APRN documented as of this encounter Procedures Procedure Name Priority Date/Time Associated Diagnosis Comments AMB REFERRAL TO WOUND CLINIC Routine 06/26/2019 Open wound of ankle with complication, right, subsequent encounter documented in this encounter Results * Referral to Wound Clinic (06/26/2019) 06/26/2019 Narrative [facility] [facility] - 07/03/2019 10:58 AM CDT See scanned image us Sebastián Siegel DO OUTPATIENT REFERRAL ORDERABLE S Final Result [facility] [address] [place] [address] documented in this encounter Visit Diagnoses Diagnosis Open wound of ankle with complication, right, subsequent encounter- Primary Chronic bilateral low back pain without sciatica documented in this encounter Care Teams Certified Coder Relationship Specialty Start Date End Date Leonard Jasso APRN [address] [place] [address] PCP - General Family Medicine 11/25/18 08/14/19 Denny Dey DO Referring Physician Orthopedic Surgery 06/28/18 9 Lacey Perdue MD [address] [phone] Referring Physician Infectious Diseases 06/28/18 documented as of this encounter
--- OUTSIDE RECORDS SUMMARY | 2024-11-23 00:29 | XMS_ITS | Encounter Summary ---
Author Organization [employer] [facility] Address [address] [place] [address] Care Team Providers Care Traffic Rate Analyst Name Role Phone Lacey Perdue MD Unavailable [phone] David Concepcion APRN Primary Care Provide r Reason for Referral * MRI/CAT Scan (Routine) - Closed Specialty Diagnoses / Procedures Referred By Contac t Referred To Contact Radiology Diagnoses Chronic bilateral low back pain with left-sided sciatica Procedures MRI Lumbar Spine wo Contrast David Concepcion, ANGIE [address] [place] [address] Phone: tel: fax: Referral ID Status Reason Start Date Expiration Date Visits Re quested Visits Authorized [id number] Closed 08/23/2019 08/22/2020 1 1 Reason for Visit * MRI/CAT Scan (Routine) - Closed Specialty Diagnoses / Procedures Referred By Contac t Referred To Contact Radiology Diagnoses Chronic bilateral low back pain with left-sided sciatica Procedures MRI Lumbar Spine wo Contrast David Concepcion, ANGIE [address] [place] [address] Phone: tel: fax: Referral ID Status Reason Start Date Expiration Date Visits Re quested Visits Authorized [id number] Closed 08/23/2019 08/22/2020 1 1 Encounter Details Date Type Department Care Team (Late st Contact Info) Description 08/30/2019 7:18 AM CDT - 08/30/2019 11:59 PM CDT Hospital Encounter [facility] [address] [place] [address] David Concepcion, PHYSICIAN OFFICE NURSE [address] [place] [address] Chronic bilateral low back pain with left-sided sciatica Discharge Disposition: Home - Discharge to [...] No 10/25/2017 2:00 PM Deonna Padilla, SUPERVISOR SAWMILL * Do you have serious difficulty walking or climbing stairs? (5 years old or older) Answer Date of Assessment Author No 10/25/2017 2:00 PM Deonna Padilla, SUPERVISOR SAWMILL * Do you have difficulty dressing or bathing? (5 years old or older) Answer Date of Assessment Author No 10/25/2017 2:00 PM Deonna Padilla, SUPERVISOR SAWMILL * Because of a physical, mental, or emotional condition, do you have difficulty doing errands alone such as visiting a doctor's office or shopping? (15 years old or older) Answer Date of Assessment Author No 10/25/2017 2:00 PM Deonna Padilla SUPERVISOR SAWMILL documented as of this encounter Mental Status [...] Name Priority Date/Time Associated Diagnosis Comments MRI LUMBAR SPINE WO CONTRAST Routine 08/30/2019 8:06 AM CDT Chronic bilateral low back pain with left-sided sciatica documented in this encounter Results * MRI Lumbar Spine wo Contrast (08/30/2019 8:06 AM CDT) Anatomical Region Laterality Modality T-spine, L-spine, Pelvis Magneti c Resonance 08/30/2019 9:08 AM CDT Impressions 08/30/2019 9:16 AM CDT 1. ??There is no acute compression fracture in the lumbar spine. 2. ??Multilevel htzy-wo-ktvkbpoy lumbar spondylotic changes as described. ??No high-grade [...] AM T: ??08/30/2019 9:16 AM Report ID: [id number] Reading Location: ??[id number] Narrative 08/30/2019 9:16 AM CDT [address] [place] [address] Patient Name:EDILBERTO DURAND ?Accession Number: [id number] Patient ID Number:[id number] ?Approval Date: 08/30/2019 9:16 AM Date of [...] Note Todd De Souza DO - 08/30/[address] [place] [address] Patient Name:EDILBERTO DURAND Accession Number: [id number] Patient ID Number:[id number] Approval Date: 08/30/2019 9:16 AM Date of [...] fracture in the lumbar spine. 2. Multilevel xgxg-sz-whuxllqo lumbar spondylotic changes as described.No high-grade spinal [...] De Souza D.O. AP: ESTEFANÍA Report ID: [id number] Reading Location: [place] [address] David Concepcion APRN IMG MRI ORDERABLES Fi nal Result documented in this encounter Visit Diagnoses Diagnosis Chronic bilateral low back pain with left-sided sciatica documented in this encounter Care Teams Traffic Rate Analyst Relationship Specialty Start Date End Date David Concepcion APRN [address] [facility] [address] [place] [address] PCP - General Family Medicine 08/15/19 04/30/21 Lacey Perdue MD [address] [phone] Referring Physician Infectious Diseases 06/28/18 documented as of this encounter
--- OUTSIDE RECORDS SUMMARY | 2024-11-23 00:29 | XMS_ITS | Encounter Summary ---
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 30 capsule 1 10/30/2017 9 ibuprofen (ADVIL,MOTRIN) 800 MG tablet Take 1 tablet by mouth every 8 (eight) hours as needed for Pain. 100 tablet 08/02/2018 0 morphine (MS CONTIN) 30 MG extended release tablet Take 1 tablet by mouth every 12 (twelve) hours Earliest Fill Date: 12/02/18. 60 tablet 12/02/2018 9 naloxone (NARCAN) 2 MG/2ML injection USE DIRECTED 2 mL 2 11/25/2018 0 oxyCODONE-acetamin ophen (PERCOCET) 10-325 MG per tablet Take 1 tablet by mouth every 6 (six) hours as needed for Pain Earliest Fill Date: 12/02/18. 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 documented in this encounter Results * PSA (12/19/2018 8:50 AM SPECIALIST FIELD ENGINEER) PSA 0.29 0.00 - 4.00 ng/mL 12/19/2018 6:20 PM SPECIALIST FIELD ENGINEER [facility] Serum specimen (specimen) 12/19/2018 8:50 AM SPECIALIST FIELD ENGINEER 12/19/2018 5:09 PM SPECIALIST FIELD ENGINEER Leonard Jasso APRN LAB BLOOD ORDERABLES Final Result [facility] [address] [place] [address] documented in this encounter Visit Diagnoses Diagnosis 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
--- OUTSIDE RECORDS SUMMARY | 2024-11-23 00:29 | XMS_ITS | Encounter Summary ---
Author Organization [employer] Address [address] [place] [address] Care Team Providers Care Card Folder Name Role Phone Lacey Perdue MD Unavailable [phone] Leonard Jasso APRN Primary Care Provide r Reason for Referral * MRI/CAT Scan (Routine) - Closed Specialty Diagnoses / Procedures Referred By Celine almaguer Referred To Contact Radiology Diagnoses Non-healing surgical wound SAPHO syndrome Osteomyelitis Procedures MRI Lower Extremity Joint w wo Contrast Brittani Light MD [facility] [place] [address] Phone: tel: fax: Referral ID Status Reason Start Date Expiration Date Visits Re quested Visits Authorized [id number] Closed 08/18/2019 08/17/2020 1 1 Reason for Visit * MRI/CAT Scan (Routine) - Closed Specialty Diagnoses / Procedures Referred By Celine almaguer Referred To Contact Radiology Diagnoses Send to Patient Access; Order Scanned in-lls;/osteomylitis nonpressure right ankle, will need labs.jdw Procedures MRI LOW EXTR ANY JNT W WO CONT Brittani Light MD [facility] [place] [address] Phone: tel: fax: [facility] [address] [place] [address] Phone: tel: Referral ID Status Reason Start Date Expiration Date Visits Re quested Visits Authorized [id number] Closed 08/23/2019 08/22/2020 1 1 Encounter Details Date Type Department Care Team (Latest Contact Info) Description 08/23/2019 12:54 PM CDT - 08/23/2019 11:59 PM CDT Hospital Encounter [facility] [address] [place] [address] Non-healing surgical wound; SAPHO syndrome; Osteomyelitis Discharge Disposition: Home - Discharge to Home [...] Author No 10/25/2017 2:00 PM Deonna Padilla, BOX MAKER * Do you have serious difficulty walking or climbing stairs? (5 years old or older) Answer Date of Assessment Author No 10/25/2017 2:00 PM Deonna Padilla, BOX MAKER * Do you have difficulty dressing or bathing? (5 years old or older) Answer Date of Assessment Author No 10/25/2017 2:00 PM Deonna Padilla, BOX MAKER * Because of a physical, mental, [...] by mouth daily. 30 capsule 5 11/04/2018 documented as of this encounter Plan of Treatment Not on file documented as of this encounter Goals Goal Patient Goal Type Associated Problems Recent Progress Patient-Stated? Author Blood Pressure < 140/90 Blood Pressure 134/86(2022 2:25 PM CDT) No Leonard Jasso, ANGIE documented as of this encounter Procedures Procedure Name Priority Date/Time Associated Diagnosis Comments MRI LOWER EXTREMITY JOINT W WO CONTRAST Routine 08/23/2019 2:00 PM CDT Non-healing surgical wound SAPHO syndrome Osteomyelitis documented in this encounter Results * MRI Lower Extremity Joint w wo Contrast (08/23/2019 2:00 PM CDT) Anatomical Region Laterality Modality Magnetic Resonan ce 08/23/2019 4:13 PM CDT Impressions 08/23/2019 4:27 PM CDT 1. ??Osteomyelitis of the distal 2.9 cm of the fibula. 2. ??Peroneal tenosynovitis which enhances therefore unable to exclude infection, peroneal longus tendinosis, interstitial split tear of the peroneal brevis tendon, and lateral subluxation of the peroneal tendons. 3. ??Sprain of the anterior talofibular ligament with chronic sprain of the posterior tibiofibular ligaments. THIS IS AN ELECTRONICALLY VERIFIED FINAL REPORT 08/23/2019 4:27 PM - Electronically signed by Kellie Ambrocio M.D. : D: ??08/23/2019 4:27 PM T: ??08/23/2019 4:27 PM Report ID: [id number] Reading Location: ??[id number] Narrative 08/23/2019 4:27 [place] [address] Patient Name:EDILBERTO DURAND ?Accession Number: [id number] Patient ID Number:[id number] ?Approval Date: 08/23/2019 4:27 PM Date of :1955 ? Imaging Date: 08/23/2019 Gender:M ?Referring Physician:BRITTANI LIGHT Exam Description:MRI LOWER EXTREMITY JOINT W WO CONTRAST ??Stay Type: EXAM DESCRIPTION: ??MR right ankle pre and post contrast REASON FOR STUDY: ??Patient has unhealed ulcer lateral side x 2 years right ankle.Duration: 2 years TECHNIQUE: ??Multiplanar, multisequence MRI of the right ankle was performed before and after contrast. ?? CONTRAST TYPE/DOSE: ??15 mL Dotarem injected via right antecubital fossa without complication COMPARISON: ??None FINDINGS: ??Bones: No fracture. ??There edema in the distal aspect of the fibula over a 2.9 cm interval. ??It is hypointense on T1, hyperintense on T2, and demonstrates some enhancement. ??These findings indicate osteomyelitis given history. Effusions: Small tibiotalar and subtalar joint effusions. Soft Tissues: No mass. Osseous Articulations: There is no osteochondral lesion of the talar dome. ?? There is no tarsal coalition. Achilles Tendon: Intact. ??No tendinosis or tear. Extensor Tendons: Intact. ??No tendinosis or tear. Flexor Tendons: Intact. ??No tendinosis or tear. Peroneal Tendons: There is lateral subluxation of the peroneal tendons. ??There is peroneal tenosynovitis-the fluid enhances and measures up to 3 cm. ??Unable to exclude infectious tenosynovitis. ??There is peroneal longus tendinopathy. ?? Interstitial split tear of the peroneal brevis tendon. Lateral Ligaments: Sprain of the anterior talofibular ligament. ??The posterior talofibular ligament is intact. ??Chronic sprain of the posterior tibiofibular ligament which is partially calcified. Medial Ligaments: The deltoid ligament is intact. ??The tibial spring ligament is intact. Sinus Tarsi: Fat signal is preserved within the sinus tarsi. Plantar Fascia: No inflammation or tear. Post Contrast Findings: See above. Other: No other finding. Procedure Note Kellie Ambrocio MD - 08/23/[address] [place] [address] Patient Name:EDILBERTO DURAND Accession Number: [id number] Patient ID Number:[id number] Approval Date: 08/23/2019 4:27 PM Date of :1955 Imaging Date: 08/23/2019 Gender:M Referring Physician:BRITTANI LIGHT Exam Description:MRI LOWER EXTREMITY JOINT W WO CONTRAST Stay Type: EXAM DESCRIPTION: MR right ankle pre and post contrast REASON FOR STUDY: Patient has unhealed ulcer lateral side x 2 years right ankle.Duration: 2 years TECHNIQUE: Multiplanar, multisequence MRI of the right ankle wasperformed before and after contrast. CONTRAST TYPE/DOSE: 15 mL Dotarem injected via right antecubital fossa without complication COMPARISON: None FINDINGS: Bones: No fracture. There edema in the distal aspect of thefibula over a 2.9 cm interval. It is hypointense on T1, hyperintense on T2, and demonstrates some enhancement. These findings indicate osteomyelitisgiven history. Effusions: Small tibiotalar and subtalar joint effusions. Soft Tissues: No mass. Osseous Articulations: There is no osteochondral lesion of the talar dome. There is no tarsal coalition. Achilles Tendon: Intact. No tendinosis or tear. Extensor Tendons: Intact. No tendinosis or tear. Flexor Tendons: Intact. No tendinosis or tear. Peroneal Tendons: There is lateral subluxation of the peroneal tendons.There is peroneal tenosynovitis-the fluid enhances and measures up to 3 cm.Unable to exclude infectious tenosynovitis. There is peroneal longustendinopathy. Interstitial split tear of the peroneal brevis tendon. Lateral Ligaments: Sprain of the anterior talofibular ligament. Theposterior talofibular ligament is intact. Chronic sprain of the posteriortibiofibular ligament which is partially calcified. Medial Ligaments: The deltoid ligament is intact. The tibial springligament is intact. Sinus Tarsi: Fat signal is preserved within the sinus tarsi. Plantar Fascia: No inflammation or tear. Post Contrast Findings: See above. Other: No other finding. IMPRESSION: 1. Osteomyelitis of the distal 2.9 cm of the fibula. 2. Peroneal tenosynovitis which enhances therefore unable to exclude infection, peroneal longus tendinosis, interstitial split tear of theperoneal brevis tendon, and lateral subluxation of the peroneal tendons. 3. Sprain of the anterior talofibular ligament with chronic sprain of the posterior tibiofibular ligaments. THIS IS AN ELECTRONICALLY VERIFIED FINAL REPORT 08/23/2019 4:27 PM - Electronically signed by Kellie Ambrocio M.D. 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 Osteomyelitis Unspecified osteomyelitis, site unspecified documented in this encounter Administered Medications Inactive Administered Medications - up to 3 most recent administrations Medication Order MAR Action Action Date Dose Rate Site Gadoterate Meglumine (DOTAREM 0.5 mmol/mL) injection 15 mL, Intravenous, ONCE, On Wed08/23/19 at 1430, For 1 dose Given 08/23/2019 2:30 PM CDT 15 mLs documented in this encounter Care Teams Card Folder Relationship Specialty Start Date End Date Leonard Jasso APRN [address] [facility] [address] [place] [address] PCP - General Family Medicine 08/15/19 04/30/21 Lacey Perdue MD [address] [address] Referring Physician Infectious Diseases 06/28/18 documented as of this encounter
--- OUTSIDE RECORDS SUMMARY | 2024-11-23 00:29 | XMS_ITS | Encounter Summary ---
Author Organization [employer] Address [address] [place] [address] Care Team Providers Care Production Aide Name Role Phone Lacey Perdue MD Unavailable [phone] Leonard Jasso APRN Primary Care Provide r Reason for Visit * Reason Onset Date Comments Medication Refill 10/04/2019 Encounter Details Date Type Department Care Team (Late st Contact Info) Description 10/04/2019 Refill [facility] [address] [place] [address] Zoey Seaman, BANK ADVISOR [address] [facility] [address] [place] [address] Social History Tobacco Use Types [...] of Assessment Author No 10/25/2017 2:00 PM CERAMICS INSTRUCTOR Galvan, Am y S, MAIL DELIVERER * Do you have serious difficulty walking or climbing stairs? (5 years old or older) Answer Date of Assessment Author No 10/25/2017 2:00 PM Deonna Padilla, MAIL DELIVERER * Do you have difficulty dressing or bathing? (5 years old or older) Answer Date of Assessment Author No 10/25/2017 2:00 PM Deonna Padilla S, MAIL DELIVERER * Because of a physical, mental, or emotional condition, do you have difficulty doing errands alone such as visiting a doctor's office or shopping? (15 years old or older) Answer Date of Assessment Author No 10/25/2017 2:00 PM Deonna Padilla S, MAIL DELIVERER documented as of this encounter Mental Status * Because of a physical, mental, or emotional condition, do you have serious difficulty concentrating, remembering, or making decisions? (5 years old or older) Answer Entry Date Author No 10/25/2017 2:00 PM Deonna Padilla, MAIL DELIVERER documented in this encounter Plan of Treatment Not on file documented as of this encounter Goals Goal Patient Goal Type Associated Problems Recent Progress Patient-Stated? Author Blood Pressure < 140/90 Blood Pressure 134/86(2022 2:25 PM CDT) No Leonard Jasso APRN documented as of this encounter Visit Diagnoses Not on filedocumented in this encounter Care Teams Production Aide Relationship Specialty Start Date End Date Leonard Jasso APRN [address] [facility] [address] [place] [address] PCP - General Family Medicine 08/15/19 04/30/21 Lacey Perdue MD [address] [address] Referring Physician Infectious Diseases 06/28/18 documented as of this encounter
--- OUTSIDE RECORDS SUMMARY | 2024-11-23 00:29 | XMS_ITS | Encounter Summary ---
Author Organization [employer] Address [address] [place] [address] Care Team Providers Care Racking Technician Name Role Phone Lacey Perdue MD Unavailable [phone] Leonard Jasso APRN Primary Care Provide r Reason for Visit * Reason Onset Date Comments Medication Refill 08/31/2019 Encounter Details Date Type Department Care Team (Late st Contact Info) Description 08/31/2019 Refill [facility] [address] [place] [address] Anna Gordillo, DRILL OPERATOR AUTOMATIC [address] [facility] [address] [place] [address] Social History Tobacco Use Types [...] of Assessment Author No 10/25/2017 2:00 PM MARKETING INTELLIGENCE MANAGER Galvan, Am y S, HEAD OF HISTORY * Do you have serious difficulty walking or climbing stairs? (5 years old or older) Answer Date of Assessment Author No 10/25/2017 2:00 PM Deonna Padilla, HEAD OF HISTORY * Do you have difficulty dressing or bathing? (5 years old or older) Answer Date of Assessment Author No 10/25/2017 2:00 PM Deonna Padilla S, HEAD OF HISTORY * Because of a physical, mental, or emotional condition, do you have difficulty doing errands alone such as visiting a doctor's office or shopping? (15 years old or older) Answer Date of Assessment Author No 10/25/2017 2:00 PM Deonna Padilla S, HEAD OF HISTORY documented as of this encounter Mental Status * Because of a physical, mental, or emotional condition, do you have serious difficulty concentrating, remembering, or making decisions? (5 years old or older) Answer Entry Date Author No 10/25/2017 2:00 PM Deonna Padilla, HEAD OF HISTORY documented in this encounter Plan of Treatment Not on file documented as of this encounter Goals Goal Patient Goal Type Associated Problems Recent Progress Patient-Stated? Author Blood Pressure < 140/90 Blood Pressure 134/86(2022 2:25 PM CDT) No Leonard Jasso APRN documented as of this encounter Visit Diagnoses Not on filedocumented in this encounter Care Teams Racking Technician Relationship Specialty Start Date End Date Leonard Jasso APRN [address] [facility] [address] [place] [address] PCP - General Family Medicine 08/15/19 04/30/21 Lacey Perdue MD [address] [address] Referring Physician Infectious Diseases 06/28/18 documented as of this encounter
--- OUTSIDE RECORDS SUMMARY | 2024-11-23 00:29 | XMS_ITS | Encounter Summary ---
Author Organization [employer] Address [address] [place] [address] Care Team Providers Care Spinner Hand Name Role Phone Lacey Perdue MD Unavailable [phone] Leonard Jasso APRN Primary Care Provide r Reason for Visit * Reason Onset Date Comments Medication Refill 09/25/2019 Encounter Details Date Type Department Care Team (Late st Contact Info) Description 09/25/[address] [address] Zoey Seaman, CEPHALOMETRIC TRACER [address] [facility] [address] [place] [address] Medication Refill Social History Tobacco [...] of Assessment Author No 10/25/2017 2:00 PM METHOD CONSULTANT Galvan, Am y S, POWER DRIVEN BRUSH MAKER * Do you have serious difficulty walking or climbing stairs? (5 years old or older) Answer Date of Assessment Author No 10/25/2017 2:00 PM Deonna Padilla, POWER DRIVEN BRUSH MAKER * Do you have difficulty dressing or bathing? (5 years old or older) Answer Date of Assessment Author No 10/25/2017 2:00 PM Deonna Padilla S, POWER DRIVEN BRUSH MAKER * Because of a physical, mental, or emotional condition, do you have difficulty doing errands alone such as visiting a doctor's office or shopping? (15 years old or older) Answer Date of Assessment Author No 10/25/2017 2:00 PM Deonna Padilla, POWER DRIVEN BRUSH MAKER documented as of this encounter Mental Status * Because of a physical, mental, or emotional condition, do you have serious difficulty concentrating, remembering, or making decisions? (5 years old or older) Answer Entry Date Author No 10/25/2017 2:00 PM Deonna Padilla, POWER DRIVEN BRUSH MAKER documented in this encounter Miscellaneous Notes * Telephone Encounter - Zoey Seaman LPN - 09/25/2019 11:35 AM CST ----- Message from Silva Galvan sent at 09/25/2019 10:47 AM METHOD CONSULTANT ----- Regarding: Medication Question Romero RE: Medication Question Is the patient active on MyChart: No Phone: Preferred Has the patient called or been called about this issue: This is a first call for this issue. Patient called today stating he went to the pharmacy to greens picker his Cymbalta and the [facility] pharmacy in [place], [place] does not have a script for it. I looked in the patients chart and I did not seeCymbalta listed. Patient stated he would like a call back today at [phone]. OD CONSULTANT documented in this encounter Plan of Treatment Not on file documented as of this encounter Goals Goal Patient Goal Type Associated Problems Recent Progress Patient-Stated? Author Blood Pressure < 140/90 Blood Pressure 134/86(2022 2:25 PM CDT) No Leonard Jasso APRN documented as of this encounter Visit Diagnoses Not on filedocumented in this encounter Care Teams Spinner Hand Relationship Specialty Start Date End Date Leonard Jasso APRN [address] [facility] [address] [place] [address] PCP - General Family Medicine 08/15/19 04/30/21 Lacey Perdue MD [address] [address] Referring Physician Infectious Diseases 06/28/18 documented as of this encounter
--- OUTSIDE RECORDS SUMMARY | 2024-11-23 00:29 | XMS_ITS | Encounter Summary ---
Author Organization [employer] Address [address] [place] [address] Care Team Providers Care Securities Research Analyst Name Role Phone Lacey Perdue MD Unavailable [phone] Leonard Jasso APRN Primary Care Provide r Reason for Referral * MRI/CAT Scan (Routine) - Closed Specialty Diagnoses / Procedures Referred By Contac t Referred To Contact Radiology Diagnoses Non-healing surgical wound SAPHO syndrome Osteomyelitis Procedures MRI Lower Extremity Joint w wo Contrast Brittani Light MD [address] [place] [address] Phone: tel: fax: Referral ID Status Reason Start Date Expiration Date Visits Re quested Visits Authorized [id number] Closed 08/18/2019 08/17/2020 1 1 Encounter Details Date Type Department Care Team (Latest Contact Info) Description 08/18/2019 Transcribe Orders [facility] General Radiology [address] [place] [address] Brittani Light MD [facility] [place] [address] Non-healing surgical wound (Primary Dx); SAPHO syndrome; Osteomyelitis Social History Tobacco Use Types Packs/Day Years [...] Author No 10/25/2017 2:00 PM Deonna Padilla, BALE PILER * Are you blind or do you have serious difficulty seeing, even when wearing glasses? Answer Date of Assessment Author No 10/25/2017 2:00 PM Deonna Padilla, BALE PILER * Do you have serious difficulty walking or climbing stairs? (5 years old or older) Answer Date of Assessment Author No 10/25/2017 2:00 PM Deonna Padilla, BALE PILER * Do you have difficulty dressing or bathing? (5 years old or older) Answer Date of Assessment Author No 10/25/2017 2:00 PM Deonna Padilla, BALE PILER * Because of a physical, mental, or emotional condition, do you have difficulty doing errands alone such as visiting a doctor's office or shopping? (15 years old or older) Answer Date of Assessment Author No 10/25/2017 2:00 PM Deonna Padilla BALE PILER documented as of this encounter Mental Status * Because of a physical, mental, or emotional condition, do you have serious difficulty concentrating, remembering, or making decisions? (5 years old or older) Answer Entry Date Author No 10/25/2017 2:00 PM Deonna Padilla BALE PILER documented in this encounter Plan of Treatment Not on file documented as of this encounter Goals Goal Patient Goal Type Associated Problems Recent Progress Patient-Stated? Author Blood Pressure < 140/90 Blood Pressure 134/86(2022 2:25 PM CDT) No Leonard Jasso APRN documented as of this encounter Results * MRI Lower Extremity [...] PM T: ??08/23/2019 4:27 PM Report ID: [id number] Reading Location: ??[id number] Narrative 08/23/2019 4:27 [place] [address] Patient Name:EDILBERTO DURAND ?Accession Number: [id number] Patient ID Number:[id number] ?Approval Date: 08/23/2019 4:27 PM Date of [...] Procedure Note Kellie Ambrocio MD - 08/23/2019 [place] [address] Patient Name:EDILBERTO DURAND Accession Number: [id number] Patient ID Number:[id number] Approval Date: 08/23/2019 4:27 PM Date of [...] by Kellie Ambrocio M.D. 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
--- OUTSIDE RECORDS SUMMARY | 2024-11-23 00:29 | XMS_ITS | Encounter Summary ---
Author Organization [employer] Address [address] [place] [address] Care Team Providers Care Repair Welder Name Role Phone Denny Dey DO Unavailable [phone] Lacey Perdue MD Unavailable Leonard Jasso APRN Primary Care Provide r Reason for Visit * Reason Onset Date Comments Concern of Cdiff 12/30/2018 Encounter Details Date Type Department Care Team (Late st Contact Info) Description 12/30/[address] [address] [address] [place] [address] Concern of Cdiff Social History Tobacco Use Types Packs/Day Years [...] of Assessment Author No 10/25/2017 2:00 PM BINDER CASER Deonna Galvan, GEORGE * Are you blind or do you have serious difficulty seeing, even when wearing glasses? Answer Date of Assessment Author No 10/25/2017 2:00 PM BINDER CASER Deonna Galvan, ELECTRONIC INTELLIGENCE OFFICER * Do you have serious difficulty walking or climbing stairs? (5 years old or older) Answer Date of Assessment Author No 10/25/2017 2:00 PM Deonna Padilla, ELECTRONIC INTELLIGENCE OFFICER * Do you have difficulty dressing or bathing? (5 years old or older) Answer Date of Assessment Author No 10/25/2017 2:00 PM BINDER CASER Deonna Galvan, ELECTRONIC INTELLIGENCE OFFICER * Because of a physical, mental, [...] encounter Miscellaneous Notes * Telephone Encounter - KaciAndresBrittany N, STUDIO CONTROL OPERATOR - 12/30/2018 3:24 PM BINDER CASER I tried to call patient to relay this information. I got his voicemail and left a very detailed message and tried to reassure him the odds of him catching her CDiff are low. I relayed Dylan's message verbatim, reassured him he is welcome to call back with any questions or concerns. ----- Message from TIFFANI Galeano sent at 12/30/2018 3:22 PM BINDER CASER ----- Contact: Patient His [id number] probably developed C. difficile after taking antibiotics. I doubt the patient will contracted this bacteria from showering at her home. Antibiotics killed the good bacteria in the intestines allowing C. difficile to grow. It usually is not transferred easily. As long as he did notuse the same washcloth or anything she came in contact with a clean herself with he should be fine.If he notices any mucousy stools he needs to follow-up with me in my office. I will be happy to talk to him if he has any questions. ----- Message ----- From: Mandi Szymanski Valerie Sent: 12/30/2018 3:05 PM To: TIFFANI Galeano, # Patient called extremely upset and concerned. He explained he was told after taking a shower at hismother in laws that she was just diagnosed with C-Diff. Patient started crying on the phone and stated, I simply cannot go through any more infections. I told patient to please wait until message is relayed to provider to jump to any conclusions. I did tell patient we would call him back today. I did so, as patient was so upset. He was driving back from [place]. Please contact patient with information on C-Diff or a plan of action if deemed necessary. Thank you Yani S ER CASER ER CASER documented in this encounter Plan of Treatment Not on file documented as of this encounter Goals Goal Patient Goal Type Associated Problems Recent Progress Patient-Stated? Author Blood Pressure < 140/90 Blood Pressure 134/86(2022 2:25 PM CDT) No Leonard Jasso APRN documented as of this encounter Visit Diagnoses Not on filedocumented in this encounter Care Teams Repair Welder Relationship Specialty Start Date End Date Leonard Jasso APRN [address] [place] [address] PCP - General Family Medicine 11/25/18 08/14/19 Denny Dey DO Referring Physician Orthopedic Surgery 06/28/18 9 Lacey Perdue MD [address] [phone] Referring Physician Infectious Diseases 06/28/18 documented as of this encounter
--- OUTSIDE RECORDS SUMMARY | 2024-11-23 00:29 | XMS_ITS | Encounter Summary ---
Author Organization [employer] Address [address] [place] [address] Care Team Providers Care Ratoprinter Name Role Phone Lacey Perdue MD Unavailable [phone] Leonard Jasso APRN Primary Care Provide r Reason for Visit * Reason Onset Date Comments Medication Management 11/02/2019 Encounter Details Date Type Department Care Team (Late st Contact Info) Description 11/02/[address] [address] [facility] [address] [facility] [address] [place] [address] Medication Management Social History Tobacco Use Types Packs/Day Years [...] Author No 10/25/2017 2:00 PM Deonna Padilla, ESTIMATOR AND DRAFTER * Do you have serious difficulty walking or climbing stairs? (5 years old or older) Answer Date of Assessment Author No 10/25/2017 2:00 PM Deonna Padilla, ESTIMATOR AND DRAFTER * Do you have difficulty dressing or bathing? (5 years old or older) Answer Date of Assessment Author No 10/25/2017 2:00 PM CLINICAL STUDY MANAGER Deonna Galvan, ESTIMATOR AND DRAFTER * Because of a physical, mental, or emotional condition, do you have difficulty doing errands alone such as visiting a doctor's office or shopping? (15 years old or older) Answer Date of Assessment Author No 10/25/2017 2:00 PM CLINICAL STUDY MANAGER Deonna Galvan, ESTIMATOR AND DRAFTER documented as of this encounter Mental Status * Because of a physical, mental, or emotional condition, do you have serious difficulty concentrating, remembering, or making decisions? (5 years old or older) Answer Entry Date Author No 10/25/2017 2:00 PM Deonna Padilla, ESTIMATOR AND DRAFTER documented in this encounter Miscellaneous Notes * Telephone Encounter - Maxine Howell CMA - 11/06/2019 11:42 AM CLINICAL STUDY MANAGER I have let [facility] know that Dylan is willing to sign orders. They stated that they may not be the ones to administer the home fusion due to issues with finding home health for the patient. But they will send on the information to [facility] who may be the ones to end up doing the home health and home fusion. ICAL STUDY MANAGER * Telephone Encounter - Maxine Howell CMA - 11/02/2019 1:43 PM CLINICAL STUDY MANAGER Danny [facility] Home Infusion called in regards to the patient when he will be discharged from the hospital from his surgery. Pt will be need 6 weeks of IV Vanco for osteomyelitis. Pharmacist will manage lab values if dosage needs changed, they are wanting to know if Dylan would be willing to sign the final orders. Phone number to call back: [phone] ICAL STUDY MANAGER documented in this encounter Plan of Treatment Not on file documented as of this encounter Goals Goal Patient Goal Type Associated Problems Recent Progress Patient-Stated? Author Blood Pressure < 140/90 Blood Pressure 134/86(2022 2:25 PM CDT) No Leonard Jasso APRN documented as of this encounter Visit Diagnoses Not on filedocumented in this encounter Care Teams Ratoprinter Relationship Specialty Start Date End Date Leonard Jasso APRN [address] [facility] [address] [place] [address] PCP - General Family Medicine 08/15/19 04/30/21 Lacey Perdue MD [address] [phone] Referring Physician Infectious Diseases 06/28/18 documented as of this encounter
--- OUTSIDE RECORDS SUMMARY | 2024-11-23 00:29 | XMS_ITS | Encounter Summary ---
Author Organization [employer] Address [address] [place] [address] Care Team Providers Care Single Corner Cutter Name Role Phone Lacey Perdue MD Unavailable [phone] Leonard Jasso APRN Primary Care Provide r Reason for Visit * Reason Onset Date Comments Medication Management 11/06/2019 Encounter Details Date Type Department Care Team (Late st Contact Info) Description 11/06/[address] [address] [facility] [address] [facility] [address] [place] [address] Medication Management Social History Tobacco [...] Author No 10/25/2017 2:00 PM Deonna Padilla, RESOURCE MANAGER FORESTER * Do you have serious difficulty walking or climbing stairs? (5 years old or older) Answer Date of Assessment Author No 10/25/2017 2:00 PM PLAYGROUND OFFICIAL Deonna Galvan, RESOURCE MANAGER FORESTER * Do you have difficulty dressing or bathing? (5 years old or older) Answer Date of Assessment Author No 10/25/2017 2:00 PM PLAYGROUND OFFICIAL Deonna Galvan, RESOURCE MANAGER FORESTER * Because of a physical, mental, or emotional condition, do you have difficulty doing errands alone such as visiting a doctor's office or shopping? (15 years old or older) Answer Date of Assessment Author No 10/25/2017 2:00 PM PLAYGROUND OFFICIAL Deonna Galvan, RESOURCE MANAGER FORESTER documented as of this encounter Mental Status * Because of a physical, mental, or emotional condition, do you have serious difficulty concentrating, remembering, or making decisions? (5 years old or older) Answer Entry Date Author No 10/25/2017 2:00 PM PLAYGROUND OFFICIAL Deonna Galvan, RESOURCE MANAGER FORESTER documented in this encounter Miscellaneous Notes * Telephone Encounter - Maxine Howell CMA - 11/06/2019 4:44 PM PLAYGROUND OFFICIAL [facility] called to inform that patient will be using their services for home health and home fusion. Pharmacist is wondering if there is anything else besides CBC, CMP, Vancotroph to be ordered for labs. Also, wanting to know if you want to manage everything, give suggestions or just sign the orders. Pharmacist doesn't want to step on any toes. Labs will next be drawn on Wednesday11/13/19. Return phone number: [phone] GROUND OFFICIAL documented in this encounter Plan of Treatment Not on file documented as of this encounter Goals Goal Patient Goal Type Associated Problems Recent Progress Patient-Stated? Author Blood Pressure < 140/90 Blood Pressure 134/86(2022 2:25 PM CDT) No Leonard Jasso APRN documented as of this encounter Visit Diagnoses Not on filedocumented in this encounter Care Teams Single Corner Cutter Relationship Specialty Start Date End Date Leonard Jasso APRN [address] [facility] [address] [place] [address] PCP - General Family Medicine 08/15/19 04/30/21 Lacey Perdue MD [address] [phone] Referring Physician Infectious Diseases 06/28/18 documented as of this encounter
--- OUTSIDE RECORDS SUMMARY | 2024-11-23 00:29 | XMS_ITS | Encounter Summary ---
Author Organization [employer] Address [address] [place] [address] Care Team Providers Care Paper Rewinder Operator Name Role Phone Denny Dey DO Unavailable [phone] Lacey Perdue MD Unavailable [phone] Leonard Jasso APRN Primary Care Provide r Reason for Visit * Reason Onset Date Comments Medication Refill 06/05/2019 Encounter Details Date Type Department Care Team (Late st Contact Info) Description 06/02/2019 Refill [facility] [address] [place] [address] Anna Gordillo, DIRECTOR CLINICAL APPLICATIONS [address] [place] [address] Social History Tobacco Use Types [...] Author No 10/25/2017 2:00 PM Deonna Padilla, ADMINISTRATIVE SECRETARY * Do you have serious difficulty walking or climbing stairs? (5 years old or older) Answer Date of Assessment Author No 10/25/2017 2:00 PM Deonna Padilla, ADMINISTRATIVE SECRETARY * Do you have difficulty dressing or bathing? (5 years old or older) Answer Date of Assessment Author No 10/25/2017 2:00 PM Deonna Padilla, ADMINISTRATIVE SECRETARY * Because of a physical, mental, [...] Author No 10/25/2017 2:00 PM Deonna Padilla, ADMINISTRATIVE SECRETARY documented in this encounter Miscellaneous Notes * Telephone Encounter - Anna Gordillo LPN - 06/02/2019 4:31 PM CDT ----- Message from Mandi Padilla sent at 06/02/2019 4:27 PM CDT ----- Contact: Patient Patient apologizes but he completely forgot to call in for his refill of Oxycodone. He states he has quit the morphine and does not want to take that. He would sincerely appreciate a call if it can be sent to [facility] for him to burr picker tomorrow. Thank you Yani S documented in this encounter Plan of Treatment Not on file documented as of this encounter Goals Goal Patient Goal Type Associated Problems Recent Progress Patient-Stated? Author Blood Pressure < 140/90 Blood Pressure 134/86(2022 2:25 PM CDT) No Leonard Jasso APRN documented as of this encounter Visit Diagnoses Not on filedocumented in this encounter Care Teams Paper Rewinder Operator Relationship Specialty Start Date End Date Leonard Jasso APRN [address] [place] [address] PCP - General Family Medicine 11/25/18 08/14/19 Denny Dey DO Referring Physician Orthopedic Surgery 06/28/18 9 Lacey Perdue MD [address] [phone] Referring Physician Infectious Diseases 06/28/18 documented as of this encounter
--- OUTSIDE RECORDS SUMMARY | 2024-11-23 00:29 | XMS_ITS | Encounter Summary ---
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 Leonard Jasso APRN [facility] [place] [address] Phone: tel: fax: Sohan Leiva MD [address] [place] [address] Phone: tel: fax: Referral ID Status Reason Start Date Expiration Date V isits Requested Visits Authorized [id number] Closed Specialty Services Required 12/19/2018 12/19/2019 1 1 E COORDINATOR Reason for Visit * Reason Comments Follow-up Encounter Details Date Type Department Care Team (Late st Contact Info) Description 12/19/2018 8:15 AM HOUSE COORDINATOR Office Visit [address] [address] Leonard Jasso, PHYSICIAN ASSISTANT SURGERY [address] [place] [address] Open wound of ankle with complication, right, subsequent encounter (Primary Dx); 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 Social History Tobacco Use Types Packs/Day Years [...] Sign Reading Time Taken Comments Blood Pressure 118/70 12/19/2018 8:05 AM HOUSE COORDINATOR Pulse 92 12/19/2018 8:05 AM HOUSE COORDINATOR Temperature 36.8 ??C (98.3 ??F) 12/19/2018 8:05 AM CS T Respiratory Rate - - Oxygen Saturation 94% 12/19/2018 8:05 AM HOUSE COORDINATOR Inhaled Oxygen Concentration - - Weight 92.3 kg (203 lb 8 oz) 12/19/2018 8:05 AM HOUSE COORDINATOR Height 180.3 cm (5' 10.98 ) 12/19/2018 8:[address] Body Mass Index 28.4 12/19/2018 8:05 AM HOUSE COORDINATOR documented in this encounter Functional Status * [...] of Assessment Author No 10/25/2017 2:00 PM HOUSE COORDINATOR Deonna Galvan ARNP documented as of this encounter Mental Status * Because of a physical, mental, or emotional condition, do you have serious difficulty concentrating, remembering, or making decisions? (5 years old or older) Answer Entry Date Author No 10/25/2017 2:00 PM Deonna Padilla ARNP documented in this encounter Patient Instructions * Patient Instructions* Leonard Jasso APNP - 12/19/2018 8:15 AM HOUSE COORDINATOR We will call you with time and date of Appt with Urologist. It is important for you to keep the appt with the Urologist due to changes in your prostate. We will call you with results of your PSA and make sure it is available for Urology. Follow up with me in one month but sooner if there is any change in your right lower extremity wound. Monitor for any drainage, fever, or sloughing of tissue. E COORDINATOR documented in this encounter Progress Notes * Leonard Jasso APNP - 12/19/2018 8:15 AM CST Chief Complaint Patient presents with ??? Follow-up Subjective: Patient ID: Edilberto Hawley is a 63 y.o. male. Pt presents for follow up. Wound right lower extremity 3.5cm long and 2cm wide. Granulation tissue remains present at 90% with tendon being visualize lower aspect of wound. Pt is no longer on antibiotics and follows up with wound clinic for observation of healing wound. PP and PT pulse 2/4 right lower extremity. Extremity warm to touch with no fever. Pt states he has had an elevated PSA in the past at [address] Loyd says his prostate has nodule on one side. History provided by: Patient Current Outpatient Prescriptions Medication Sig Dispense Refill ??? amitriptyline (ELAVIL) 75 MG tablet TAKE ONE TABLET NIGHTLY 30 tablet 5 ??? baclofen (LIORESAL) 10 MG tablet Take 1 tablet by mouth nightly. (Patient taking differently: Take 10 mg by mouth nightly Indications: PT. STATES ONLY TAKES NEEDED.. ) 30 tablet 5 ??? Diclofenac Sodium 1 % CREA Place onto the skin nightly as needed. ??? DULoxetine (CYMBALTA) 60 MG capsule Take 1 capsule by mouth daily. 30 capsule 1 ??? ibuprofen (ADVIL,MOTRIN) 800 MG tablet Take 1 tablet by mouth every 8 (eight) hours as needed for Pain. 100 tablet 0 ??? morphine (MS CONTIN) 30 MG extended release tablet Take 1 tablet by mouth every 12 (twelve) hours Earliest Fill Date: 12/02/18. 60 tablet 0 ??? Multiple Vitamins-Minerals (ONE DAILY MULTIVITAMIN ADULT PO) Take by mouth. ??? naloxone (NARCAN) 2 MG/2ML injection USE DIRECTED 2 mL 2 ??? oxyCODONE-acetaminophen (PERCOCET) 10-325 MG per tablet Take 1 tablet by mouth every 6 (six) hours as needed for Pain Earliest Fill Date: 12/02/18. 120 tablet 0 ??? Probiotic Product (SOLUBLE FIBER/PROBIOTICS PO) Take 1 tablet by mouth daily. ??? tamsulosin HCl (FLOMAX) 0.4 MG capsule Take 1 capsule by mouth daily. 30 capsule 5 ??? vitamin D (CHOLECALCIFEROL) 1000 units tablet Take 1,000 Units by mouth daily. No current facility-administered medications for this visit. Patient has no known allergies. Past Medical History: Diagnosis Date ??? Arthritis ??? Back injury ??? Chronic back pain greater than 3 months duration ??? Migraines ??? Osteomyelitis of ankle or foot, acute, right ([facility]) 2018 Stepped on nail ??? Shoulder injury ??? Substance abuse ([facility]) cocaine, crystal meth nothing since 1996 ??? [...] tobacco: Never Used ??? Alcohol use No History Alcohol Use No History Drug Use ??? Types: Hydrocodone, Morphine Comment: Arthritis pain Patient's problem list, medications, allergies, past medical, [...] intolerance and heat intolerance. Genitourinary: Positive for difficulty urinating. Negative for frequency. Musculoskeletal: Positive for arthralgias and back pain. Skin: Positive for wound (Right lower extremity lateral malleous. 3.5cm long and 2cm wide. Eschar tissue noted. No drainage. ). Negative for rash. Allergic/Immunologic: Negative for environmental allergies and food allergies. Neurological: Negative for dizziness, tremors, speech difficulty, weakness and headaches. Psychiatric/Behavioral: Negative for agitation and behavioral problems. All other systems reviewed and are negative. Objective: BP 118/70 (BP Location: [facility] [place], [place] Position: sitting, BP Cuff Size: Reg) Pulse 92 Temp 36.8 ??C (98.3 ??F) (Tympanic) Ht 1.803 m (5' 10.98 ) Wt 92.3 kg (203 lb 8 oz) SpO2 94% BMI 28.40 kg/m?? Body mass index is 28.4 kg/m??. Physical Exam Constitutional: He is oriented [...] no distension. There is no tenderness. Genitourinary: Penis normal. Circumcised. Genitourinary Comments: Prostate is hard/nodule. Musculoskeletal: He exhibits no edema (Resolved. ). Lymphadenopathy: He has no cervical adenopathy. 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 It is important for you to keep the appt with the Urologist due to changes in your prostate. We will call you with results of your PSA and make sure it is available for Urology. Follow up with me in one month but sooner if there is any change in your right lower extremity wound. Monitor for any drainage, fever, or sloughing of tissue. E COORDINATOR E COORDINATOR documented in this encounter Plan of Treatment Not on file documented as of this encounter Goals Goal Patient Goal Type Associated Problems Recent Progress Patient-Stated? 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 documented in this encounter Results * Referral to Urology (12/20/2018) 12/20/2018 Narrative [facility] - 12/21/2018 1:24 PM HOUSE COORDINATOR See Scanned Image us Leonard Jasso APRN OUTPATIENT REFERRAL O RDERABLES Final Result [facility] [address] [place], [place] * PSA (12/19/2018 8:50 AM HOUSE COORDINATOR) PSA 0.29 0.00 - 4.00 ng/mL 12/19/2018 6:20 PM HOUSE COORDINATOR [facility] Serum specimen (specimen) 12/19/2018 8:50 AM HOUSE COORDINATOR 12/19/2018 5:09 PM HOUSE COORDINATOR Leonard Jasso APRN LAB BLOOD ORDERABLES Final Result [facility] [address] [place], [place] documented in this encounter Visit Diagnoses Diagnosis Open wound of ankle with complication, right, subsequent encounter- Primary 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
--- OUTSIDE RECORDS SUMMARY | 2024-11-23 00:29 | XMS_ITS | Encounter Summary ---
Author Organization [employer] Address [address] [place] [address] Care Team Providers Care Director Of Quality Improvement Name Role Phone Denny Dey DO Unavailable [phone] Lacey Perdue MD Unavailable Leonard Jasso APRN Primary Care Provide r Reason for Visit * Reason Comments Initial Consult Pt here for initial consult GERD * Referral (Routine) - Closed Specialty Diagnoses / Procedures Referred By Contac t Referred To Contact General Surgery Diagnoses Gastroesophageal reflux disease without esophagitis Leonard Jasso, ANGIE [address] [place] [address] Phone: tel: fax: Siddhartha Loyd MD [address] [place] [address] [address] [place] [address] Phone: tel: fax: Referral ID Status Reason Start Date Expiration Date V isits Requested Visits Authorized [id number] Closed Specialty Services Required 01/03/2019 01/03/2020 1 1 Encounter Details Date Type Department Care Team (Latest Contact Info) Description 01/05/2019 11:00 AM NEGATIVE SPOTTER Initial consult [facility] Surgery [address] [facility] [address] [place] [address] [place] [address] [place] [address] [address] [place] [address] Gastroesophageal reflux disease, esophagitis presence not specified (Primary Dx) Social History Tobacco Use Types [...] Sign Reading Time Taken Comments Blood Pressure 120/88 01/05/2019 10:58 AM NEGATIVE SPOTTER Pulse 80 01/05/2019 10:58 AM NEGATIVE SPOTTER Temperature 36.5 ??C (97.7 ??F) 01/05/2019 10:[address] Respiratory Rate 18 01/05/2019 10:58 AM NEGATIVE SPOTTER Oxygen Saturation 97% 01/05/2019 10:58 AM NEGATIVE SPOTTER Inhaled Oxygen Concentration - - Weight 88.9 kg (196 lb) 01/05/2019 10:58 AM NEGATIVE SPOTTER Height 180.3 cm (5' 11 ) 01/05/2019 10:58 AM NEGATIVE SPOTTER Body Mass Index 27.34 01/05/2019 10:58 AM NEGATIVE SPOTTER documented in this encounter Functional Status * Are you deaf or do you have serious difficulty hearing? Answer Date of Assessment Author No 10/25/2017 2:00 PM Doenna Padilla ARNP * Are you blind or [...] this encounter Patient Instructions * Patient Instructions* Zenaida Clifton RN - 01/05/2019 11:00 AM NEGATIVE SPOTTER Images from the original note were not included. Gastroesophageal Reflux Disease (GERD): Care Instructions Your Care Instructions Gastroesophageal reflux disease (GERD) is the backward flow of stomach acid into the esophagus. Theesophagus is the tube that leads from your throat to your stomach. A one-way valve prevents the stomach acid from moving up into this tube. When you have GERD, this valve does not close tightly enough. If you have mild GERD symptoms including heartburn, you may be able to control the problem with antacids or ghdl-jqs-rqisasy medicine. Changing your diet, losing weight, and making other lifestyle changes can also help reduce symptoms. Follow-up care is a whalen part of your treatment and safety. Be sure to make and go to all appointments, and call your doctor if you are having problems. It's also a good idea to know your test resultsand keep a list of the medicines you take. How can you care for yourself at home? ?? Take your medicines exactly as prescribed. Call your doctor if you think you are having a problem with your medicine. ?? Your doctor may recommend aayx-iwn-kaaeoyf medicine. For mild or occasional indigestion, antacids, such as Tums, Gaviscon, Mylanta, or Maalox, may help. Your doctor also may recommend jpfe-qtf-jztswmr acid reducers, such as Pepcid AC, Tagamet HB, Zantac 75, or Prilosec. Read and follow all instructions on the label. If you use these medicines often, talk with your doctor. ?? Change your eating habits. ?? It's best to eat several small meals instead of two or three large meals. ?? After you eat, wait 2 to 3 hours before you lie down. ?? Chocolate, mint, and alcohol can make GERD worse. ?? Spicy foods, foods that have a lot of acid (like tomatoes and oranges), and coffee can make GERDsymptoms worse in some people. If your symptoms are worse after you eat a certain food, you may want to stop eating that food to see if your symptoms get better. ?? Do not smoke or chew tobacco. Smoking can make GERD worse. If you need help quitting, talk to your doctor about stop-smoking programs and medicines. These can increase your chances of quitting forgood. ?? If you have GERD symptoms at night, raise the head of your bed 6 to 8 inches by putting the frame on blocks or placing a foam wedge under the head of your mattress. (Adding extra pillows does not work.) ?? Do not wear tight clothing around your middle. ?? Lose weight if you need to. Losing just 5 to 10 pounds can help. When should you call for help? Call your doctor now or seek immediate medical care if: ? You have new or different belly pain. ? Your stools are black and tarlike or have streaks of blood. ??Watch closely for changes in your health, and be sure to contact your doctor if: ? Your symptoms have not improved after 2 days. ? Food seems to catch in your throat or chest. Where can you learn more? Go to the Search Medical Library option found under the Resources tab in [employer] [email or web address] If you do not have access to [employer], you can visit [email or web address] and select [employer] from the menu on the left. Enter T927 in the searchbox to learn more about Gastroesophageal Reflux Disease (GERD): Care Instructions. Not on [employer]? Go to [email or web address] and click the Sign Up Now linkto request an activation code. Current as of: February 08, 2018 Content Version: 11.9 ?? [id number] [employer]. Care instructions adapted under license by your healthcare professional. This care instruction is for use with your licensed healthcare professional. If you have questions about a medical condition or this instruction, always ask your healthcare professional. [email or web address] disclaims any warranty or liability for your use of this information. TIVE SPOTTER documented in this encounter Progress Notes * Siddhartha Loyd MD - 01/05/2019 11:00 AM CST Surgical Services Office Visit Patient: Edilberto Hawley Patient : 1955 Date: 01/05/19 Chief Complaint: Chief Complaint Patient presents with ??? Initial Consult Pt here for initial consult GERD HPI: 63 y.o. male presents today for followup. The patient is here for a couple of reasons. First, the patient is status post colonoscopy with polypectomy. I informed him that his polyps were negative for any signs of malignancy. I think he needs a follow-up endoscopy in about 3 years. Second, he is having significant reflux symptoms. He denies any hematemesis. He does have a distant history of peptic ulcer disease. He is currently on some H2 blockers. Those appear to be having some positive effects. He is here for further exam and care. Past Medical History: No Known Allergies Current Outpatient Prescriptions: ??? amitriptyline (ELAVIL) 75 MG tablet, TAKE ONE TABLET NIGHTLY, Disp: 30 tablet, Rfl: 5 ??? baclofen (LIORESAL) 10 MG tablet, Take 1 tablet by mouth nightly. (Patient taking differently: Take 10 mg by mouth nightly Indications: PT. STATES ONLY TAKES NEEDED.. ), Disp: 30 tablet, Rfl: 5 ??? Diclofenac Sodium 1 % CREA, Place onto the skin nightly as needed., Disp: , Rfl: ??? DULoxetine (CYMBALTA) 60 MG capsule, Take 1 capsule by mouth daily., Disp: 30 capsule, Rfl: 1 ??? finasteride (PROSCAR) 5 MG tablet, Take 5 mg by mouth daily., Disp: , Rfl: ??? fluticasone NASAL (FLONASE) 50 MCG/ACT nasal spray, 2 sprays by Nasal route daily as needed forRhinitis. to each nostril, Disp: , Rfl: ??? ibuprofen (ADVIL,MOTRIN) 800 MG tablet, Take 1 tablet by mouth every 8 (eight) hours as needed for Pain., Disp: 100 tablet, Rfl: 0 ??? morphine (MS CONTIN) 30 MG extended release tablet, Take 1 tablet by mouth every 12 (twelve) hours., Disp: 60 tablet, Rfl: 0 ??? Multiple Vitamins-Minerals (ONE DAILY MULTIVITAMIN ADULT PO), Take by mouth., Disp: , Rfl: ??? oxyCODONE-acetaminophen (PERCOCET) 10-325 MG per tablet, Take 1 tablet by mouth every 6 (six) hours as needed for Pain., Disp: 120 tablet, Rfl: 0 ??? Probiotic Product (SOLUBLE FIBER/PROBIOTICS PO), Take 1 tablet by mouth daily., Disp: , Rfl: ??? ranitidine (ZANTAC) 150 MG tablet, Take 1 tablet by mouth 2 (two) times daily., Disp: 60 tablet, Rfl: 5 ??? tamsulosin HCl (FLOMAX) 0.4 MG capsule, Take 1 capsule by mouth daily., Disp: 30 capsule, Rfl: 5 ??? vitamin D (CHOLECALCIFEROL) 1000 units tablet, Take 1,000 Units by mouth daily., Disp: , Rfl: ??? naloxone (NARCAN) 2 MG/2ML injection, USE DIRECTED, Disp: 2 mL, Rfl: 2 Past Medical History: Diagnosis Date ??? Arthritis ??? Back injury ??? Chronic back pain greater than 3 months duration ??? GERD (gastroesophageal reflux disease) ??? Migraines ??? Osteomyelitis of ankle or foot, acute, right ([facility]) 2018 Stepped on nail ??? Shoulder injury ??? Substance abuse ([facility]) cocaine, crystal meth nothing since [...] 4 5 lumbar, pinched nerves Social History Social History ??? Marital status: Spouse name: Javier ??? Number of children: 3 ??? Years of education: N/A Occupational History ??? Retired Social History Main Topics ??? Smoking status: Never Smoker ??? Smokeless tobacco: Never Used ??? Alcohol use No ??? Drug use: Yes Types: Hydrocodone, Morphine Comment: Arthritis pain ??? Sexual activity: Not on file Other Topics Concern ??? Caffeine Use Yes 2 cans coke weekly ??? Exercise No ??? Special Diet No Social History Narrative ??? No narrative on file Family History Problem Relation Age of Onset ??? Dementia Mother Review of Systems: No change since his previous visit. Exam: Vitals: 01/05/19 1058 BP: 120/88 Pulse: 80 Resp: 18 Temp: 36.5 ??C (97.7 ??F) TempSrc: Tympanic SpO2: 97% Weight: 88.9 kg (196 lb) Height: 1.803 m (5' 11 ) Body mass index is 27.34 kg/m??. GENERAL: 63-year-old in no apparent distress. CHEST: Lungs are clear to auscultation. HEART: Heart is regular rate and rhythm. ABDOMEN: Abdomen is soft and nontender. No masses/organomegaly on exam. No guarding or rebound. No CVA tenderness. EXTREMITIES: Grossly intact. LAB AND RADIOLOGY: Polyp pathology as described above. Assessment/Plan: 63-year-old presenting with a new issue of GERD. He seems to be doing better with some H2 blockers. I told him I would continue with that. I do not think he needs an endoscopy at this point. We are going to have him come back to see us in 3 months to reevaluate his reflux symptoms.We may need to get an endoscopy at that time. He is going to contact us sooner if his symptoms worsen. Patient understands the plan and is agreeable. Again, we will see him back in 3 months, sooner if needed. The encounter diagnosis was Gastroesophageal reflux disease, esophagitis presence not specified. No Follow-up on file. Siddhartha Loyd MD, FACS TIVE SPOTTER documented in this encounter Plan of Treatment Not on file documented as of this encounter Goals Goal Patient Goal Type Associated Problems Recent Progress Patient-Stated? Author Blood Pressure < 140/90 Blood Pressure 134/86(2022 2:25 PM CDT) No Wasielewski, Leonard W, COLLAR TACKER documented as of this encounter Procedures Procedure Name Priority Date/Time Associated Diagnosis Comments AMB REFERRAL TO GENERAL SURGERY Routine 04/26/2019 11:45 AM CDT Gastroesophageal reflux disease without esophagitis documented in this encounter Results * Referral to General Surgery (04/26/2019 11:45 AM CDT) Narrative [facility] - 04/26/2019 11:45 AM CDT Note in Epic us Leonard Jasso COLLAR TACKER OUTPATIENT REFERRAL O RDERABLES Final Result [facility] [address] [place], [place] documented in this encounter Visit Diagnoses Diagnosis Gastroesophageal reflux disease, esophagitis presence not specified- Primary documented in this encounter Care Teams Director Of Quality Improvement Relationship Specialty Start Date End Date Leonard Jasso APRN [address] [place] [address] PCP - General Family Medicine 11/25/18 08/14/19 Denny Dey DO Referring Physician Orthopedic Surgery 06/28/18 9 Lacey Perdue MD [address] [phone] Referring Physician Infectious Diseases 06/28/18 documented as of this encounter
--- OUTSIDE RECORDS SUMMARY | 2024-11-23 00:29 | XMS_ITS | Encounter Summary ---
Author Organization [employer] Address [address] [place] [address] Care Team Providers Care Vascular Radiologist Name Role Phone Denny Dey DO Unavailable [phone] Lacey Perdue MD Unavailable Leonard Jasso APRN Primary Care Provide r Reason for Visit * Reason Onset Date Comments Colonoscopy 12/05/2018 Surgery departme nt had notified me that Mr. Hawley had misplaced his prep instructions. Encounter Details Date Type Department Care Team (Late st Contact Info) Description 12/05/[address] [place] [address] Zenaida Clifton RN [address] [place] [address] [address] [place] [address] Colonoscopy (Surgery department had notified me that Mr. Hawley had misplaced his prep instructions.) Social History Tobacco Use Types Packs/Day Years [...] Assessment Author No 10/25/2017 2:00 PM OIL FIELD ROUSTABOUT Deonna Galvan S, SCHOOL SERVICES OFFICER * Are you blind or do you have serious difficulty seeing, even when wearing glasses? Answer Date of Assessment Author No 10/25/2017 2:00 PM OIL FIELD ROUSTABOUT Deonna Galvan y S, SCHOOL SERVICES OFFICER * Do you have serious difficulty walking or climbing stairs? (5 years old or older) Answer Date of Assessment Author No 10/25/2017 2:00 PM OIL FIELD ROUSTABOUT Deonna Galvan S, SCHOOL SERVICES OFFICER * Do you have difficulty dressing or bathing? (5 years old or older) Answer Date of Assessment Author No 10/25/2017 2:00 PM Deonna Padilla S, SCHOOL SERVICES OFFICER * Because of a physical, mental, or emotional condition, do you have difficulty doing errands alone such as visiting a doctor's office or shopping? (15 years old or older) Answer Date of Assessment Author No 10/25/2017 2:00 PM Deonna Paidlla, SCHOOL SERVICES OFFICER documented as of this encounter Mental Status * Because of a physical, mental, or emotional condition, do you have serious difficulty concentrating, remembering, or making decisions? (5 years old or older) Answer Entry Date Author No 10/25/2017 2:00 PM Deonna Padilla, SCHOOL SERVICES OFFICER documented in this encounter Miscellaneous Notes * Telephone Encounter - Zenaida Clifton RN - 12/05/2018 2:23 PM OIL FIELD ROUSTABOUT Surgery Department had contacted me to advise me Mr. Hawley had lost his colonoscopy prep instructions. I made contact with Edilberto to discuss this issue. I gave him very specific instructions, whichhe stated he was writing down. They were the same instructions written on the misplaced paper I hadgiven him at his appointment. He read back the instructions and verbalized understanding. He promised he would contact me with any further questions. FIELD ROUSTABOUT documented in this encounter Plan of Treatment Not on file documented as of this encounter Goals Goal Patient Goal Type Associated Problems Recent Progress Patient-Stated? Author Blood Pressure < 140/90 Blood Pressure 134/86(2022 2:25 PM CDT) No Leonard Jasso APRN documented as of this encounter Visit Diagnoses Not on filedocumented in this encounter Care Teams Vascular Radiologist Relationship Specialty Start Date End Date Leonard Jasso APRN [address] [place] [address] PCP - General Family Medicine 11/25/18 08/14/19 Denny Dey DO Referring Physician Orthopedic Surgery 06/28/18 9 Lacey Perdue MD [address] [phone] Referring Physician Infectious Diseases 06/28/18 documented as of this encounter
--- OUTSIDE RECORDS SUMMARY | 2024-11-23 00:30 | XMS_ITS | Encounter Summary ---
Author Organization [employer] Address [address] [place] [address] Care Team Providers Care Sales Promotion Officer Name Role Phone Coco Leos PA-C Primary Care Provider [phone] Denny Dey DO Unavailable [phone] Lacey Perdue MD Unavailable [phone] Encounter Details Date Type Department Care Team (Latest Contact Info) Description 11/14/2018 11:00 AM PROJECT PLANNER - 11/14/2018 11:59 PM PROJECT PLANNER Hospital Encounter [facility] [address] [place] [phone] Encounter for long-term (current) use of antibiotics; Primary localized osteoarthrosis Discharge Disposition: Home - Discharge to Home [...] of Assessment Author No 10/25/2017 2:00 PM PROJECT PLANNER Galvan, Am y S, ESTIMATOR PRINTING PLATE MAKING * Do you have serious difficulty walking [...] Entry Date Author No 10/25/2017 2:00 PM Doenna Padilla ARNP documented in this encounter Medications at Time of Discharge amitriptyline (ELAVIL) 75 MG tablet Take 1 tablet by mouth nightly. 30 tablet 10/04/2018 11/23/2018 baclofen (LIORESAL) 10 MG tablet Take 1 tablet by mouth nightly. 30 tablet 5 08/09/2018 03/03/2019 ciprofloxacin (CIPRO) 750 MG tablet Take 750 mg by mouth 2 (two) times daily. 12/01/2018 Diclofenac Sodium 1 % CREA Place onto [...] mouth every 12 (twelve) hours. 60 tablet 11/02/2018 12/02/2018 oxyCODONE-acetami nophen (PERCOCET) 10-325 MG per tablet Take 1 tablet by mouth every 6 (six) hours as needed for Pain. 120 tablet 11/02/2018 12/02/2018 polyethylene glycol (GLYCOLAX) packet Take 17 g by mouth daily. 12/01/2018 sodium chloride 0.9 % SOLN 250 mL with vancomycin HCl 1 g SOLR 15 mg/kg Inject 15 mg/kg into the vein every 12 (twelve) hours. 12/01/2018 tamsulosin HCl (FLOMAX) 0.4 MG capsule Take 1 capsule by mouth daily. 30 capsule 5 11/04/2018 01/15/2021 documented as of this encounter Plan of Treatment Not on file documented as of this encounter Goals Goal Patient Goal Type Associated Problems Recent Progress Patient-Stated? Author Blood Pressure < 140/90 Blood Pressure 134/86(2022 2:25 PM CDT) No Leonard Jasso APRN documented as of this encounter Procedures Procedure Name Priority Date/Time Associated Diagnosis Comments C-REACTIVE PROTEIN Routine 11/14/2018 11 :00 AM PROJECT PLANNER Encounter for long-term (current) use of antibiotics Primary localized osteoarthrosis VANCOMYCIN, TROUGH Routine 11/14/2018 11 :00 AM PROJECT PLANNER Encounter for long-term (current) use of antibiotics Primary localized osteoarthrosis COMPREHENSIVE METABOLIC PANEL Routine 11/14/2018 11:00 AM PROJECT PLANNER Encounter for long-term (current) use of antibiotics Primary localized osteoarthrosis documented in this encounter Results * (ABNORMAL) C-reactive protein (11/14/2018 11:00 AM PROJECT PLANNER) CRP 1.30(H) 0.2 - 0.9 mg/dL 11/14/2018 12:[address] [facility] Serum specimen (specimen) 11/14/2018 11:00 AM PROJECT PLANNER 11/14/2018 11:52 AM PROJECT PLANNER us Lacey Perdue MD LAB BLOOD ORDERABLES Final R esult [facility] [address] [place] [address] * (ABNORMAL) Vancomycin, trough (11/14/2018 11:00 AM PROJECT PLANNER) Vancomycin Trough 10.8(H) 5.0 - 10.0 mcg/mL 11/14/2018 12:[address] [facility] Serum specimen (specimen) 11/14/2018 11:00 AM PROJECT PLANNER 11/14/2018 11:52 AM PROJECT PLANNER us Lacey Perdue MD LAB BLOOD ORDERABLES Final R esult [facility] [address] [place] * (ABNORMAL) Comprehensive metabolic panel (11/14/2018 11:00 AM PROJECT PLANNER) Sodium 138 136 - 145 mmol/L 11/14/2018 12:[address] [facility] Potassium 4.8 3.5 - 5.1 mmol/L 11/14/2018 12:[address] [facility] Chloride 103 98 - 107 mmol/L 11/14/2018 12:[address] [facility] CO2 26 21 - 32 mmol/L 11/14/2018 12:[address] [facility] Glucose 109(H) 74 - 106 mg/dL 11/14/2018 12:[address] [facility] BUN 9 7.0 - 18.0 mg/dL 11/14/2018 12:[address] [facility] Creatinine 0.91 0.70 - 1.30 mg/dL 11/14/2018 12:[address] [facility] Calcium 9.4 8.5 - 10.1 mg/dL 11/14/2018 12:[address] [facility] Total Protein 7.0 6.4 - 8.2 g/dL 11/14/2018 12:[address] [facility] Albumin 3.8 3.4 - 5.0 g/dL 11/14/2018 12:[address] [facility] Bilirubin Total 0.5 0.2 - 1.0 mg/dL 11/14/2018 12:[address] [facility] Alkaline Phosphatase 95 56 - 119 U/L 11/14/2018 12:[address] [facility] AST 47(H) 15 - 37 U/L 11/14/2018 12:[address] [facility] ALT 63 16 - 63 U/L 11/14/2018 12:[address] [facility] Creatinine Based eGFR >60 11/14/2018 12:[address] [facility] Comment: GFR REFERENCE RANGE: >60 mL/min/1.73m2 -- An eGFR of > than, or = to 60, may indicate normal renal function or mildly decreased GFR. EGFR /Belarusian >60 11/14/2018 12:[address] [facility] Comment: -- An eGFR of > than, or = to 60, may indicate normal renal function or mildly decreased GFR. Serum specimen (specimen) 11/14/2018 11:00 AM PROJECT PLANNER 11/14/2018 11:52 AM [facility] us Lacey Perdue MD LAB BLOOD ORDERABLES Final R esult [facility] [address] [place] [address] documented in this encounter Visit Diagnoses Diagnosis Encounter for long-term (current) use of antibiotics Primary localized osteoarthrosis Primary localized osteoarthrosis, unspecified site documented in this encounter Care Teams Sales Promotion Officer Relationship Specialty Start Date End Date Coco Leos PA-C [address] [place] [address] PCP - General Physician Dynamometer Tester Engine 10/25/17 11/24/18 Denny Dey DO [address] [place] [address] Referring Physician Orthopedic Surgery 06/28/18 9 Lacey Perdue MD [address] [phone] Referring Physician Infectious Diseases 06/28/18 documented as of this encounter
--- OUTSIDE RECORDS SUMMARY | 2024-11-23 00:30 | XMS_ITS | Encounter Summary ---
Author Organization [facility] Address [address] [place] [address] Care Team Providers Care Auto Body Mechanic Apprentice Name Role Phone RobertbetoGraceCoco Katt WISE Primary Care Provider [phone] Denny Dey DO Unavailable [phone] Lacey Perdue MD Unavailable [phone] Encounter Details Date Type Department Care Team (Latest Contact Info) Description 11/07/2018 Transcribe Orders [facility] [address] [place] [address] Lacey Perdue MD [address] [address] Encounter for long-term (current) use of antibiotics (Primary Dx); Primary localized osteoarthrosis Social History Tobacco Use Types Packs/Day Years [...] of Assessment Author No 10/25/2017 2:00 PM CLOTH BLEACHING SUPERVISOR Deonna Galvan, GEORGE * Are you blind [...] documented as of this encounter Results * Vancomycin, trough (11/07/2018 10:15 AM CLOTH BLEACHING SUPERVISOR) Vancomycin Trough 9.9 5.0 - 10.0 mcg/mL 11/07/2018 11:20 AM CLOTH BLEACHING SUPERVISOR [facility] [employer] [facility] Serum specimen (specimen) 11/07/2018 10:15 AM CLOTH BLEACHING SUPERVISOR 11/07/2018 10:40 AM CLOTH BLEACHING SUPERVISOR us Lacey Perdue MD LAB BLOOD ORDERABLES Final R esult [facility] [employer] [facility] [address] [place] * (ABNORMAL) Sedimentation rate (11/07/2018 10:15 AM CLOTH BLEACHING SUPERVISOR) Sedimentation Rate 25(H) 0 - 20 mm/hr 11/07/2018 11:38 AM [facility] [place] [facility] Whole blood specimen (specimen) 11/07/2018 10:15 AM CLOTH BLEACHING SUPERVISOR 11/07/2018 10:40 AM [facility] us Lacey Perdue MD LAB BLOOD ORDERABLES Final R esult [facility] [address] [place] * (ABNORMAL) Comprehensive metabolic panel (11/07/2018 10:15 AM [facility]) Sodium 139 136 - 145 mmol/L 11/07/2018 11:20 AM [facility] Potassium 4.3 3.5 - 5.1 mmol/L 11/07/2018 11:20 AM [facility] Chloride 103 98 - 107 mmol/L 11/07/2018 11:20 AM [facility] [place] [facility] CO2 24 21 - 32 mmol/L 11/07/2018 11:20 AM [facility] [place] [facility] Glucose 119(H) 74 - 106 mg/dL 11/07/2018 11:20 AM [facility] [employer] BUN 14 7.0 - 18.0 mg/dL 11/07/2018 11:20 AM [facility] Creatinine 0.87 0.70 - 1.30 mg/dL 11/07/2018 11:20 AM [facility] Calcium 9.2 8.5 - 10.1 mg/dL 11/07/2018 11:20 AM [facility] Total Protein 7.1 6.4 - 8.2 g/dL 11/07/2018 11:20 AM [facility] [place] [facility] Albumin 3.9 3.4 - 5.0 g/dL 11/07/2018 11:20 AM [facility] [place] [facility] Bilirubin Total 0.4 0.2 - 1.0 mg/dL 11/07/2018 11:20 AM [facility] [employer] Alkaline Phosphatase 94 56 - 119 U/L 11/07/2018 11:20 AM [facility] AST 40(H) 15 - 37 U/L 11/07/2018 11:20 AM [facility] ALT 51 16 - 63 U/L 11/07/2018 11:20 AM [facility] [email or web address] [facility] Creatinine Based eGFR >60 11/07/2018 11:20 AM [facility] Comment: GFR REFERENCE RANGE: >60 mL/min/1.73m2 -- An eGFR of > than, or = to 60, may indicate normal renal function or mildly decreased GFR. EGFR /Burundian >60 11/07/2018 11:20 AM [facility] [employer] Comment: -- An eGFR of > than, or = to 60, may indicate normal renal function or mildly decreased GFR. Serum specimen (specimen) 11/07/2018 10:15 AM CLOTH BLEACHING SUPERVISOR 11/07/2018 10:40 AM [facility] us Lacey Perdue MD LAB BLOOD ORDERABLES Final R esult [facility] [address] [place], [place] * CBC and differential (11/07/2018 10:15 AM [facility]) WBC 7.32 4.00 - 11.00 th/mm3 11/07/2018 10:57 AM [facility] [employer] [facility] RBC 5.30 4.50 - 6.50 mill/mm3 11/07/2018 10:57 AM [facility] HGB 15.8 13.8 - 18.0 g/dL 11/07/2018 10:57 AM [facility] [email or web address] HCT 45.8 40.0 - 54.0 % 11/07/2018 10:57 AM [facility] [employer] [facility] MCV 86.4 76 - 99 fL 11/07/2018 10:57 AM [facility] MCH 29.8 27.0 - 32.0 pg 11/07/2018 10:57 AM [facility] MCHC 34.5 30.0 - 35.0 g/dL 11/07/2018 10:57 AM [facility] Platelets 200 135 - 470 th/mm3 11/07/2018 10:57 AM [facility] RDW 12.7 11.0 - 17.0 % 11/07/2018 10:57 AM [facility] MPV 9.8 8.0 - 12.5 fL 11/07/2018 10:57 AM [facility] Differential Type AUTOMATED DIFFERENTIAL 11/07/2018 10:57 AM [facility] Neutrophil % 58.5 45.0 - 75.0 % 11/07/2018 10:57 AM [facility] Lymphocytes % 29.0 20.0 - 45.0 % 11/07/2018 10:57 AM [facility] Monocyte % 8.9 0.0 - 10.0 % 11/07/2018 10:57 AM [facility] Eosinophils Relative % 3.1 0.0 - 5.0 % 11/07/2018 10:57 AM [facility] Basophils % 0.4 0.0 - 2.0 % 11/07/2018 10:57 AM [facility] Immature Granulocytes% 0.1 0.0 - 1.6 % 11/07/2018 10:57 AM [facility] Neutrophils Absolute 4.28 2.00 - 7.90 th/mm3 11/07/2018 10:57 AM [facility] Lymphocytes Absolute 2.12 1.00 - 4.00 th/mm3 11/07/2018 10:57 AM [facility] Monos Absolute 0.65 0.00 - 0.80 th/mm3 11/07/2018 10:57 AM [facility] Eosinophils Absolute Count 0.23 0.00 - 0.40 th/mm3 11/07/2018 10:57 AM CLOTH BLEACHING SUPERVISOR [facility] Basophils Absolute 0.03 0.00 - 0.10 th/mm3 11/07/2018 10:57 AM CLOTH BLEACHING SUPERVISOR [facility] [employer]oo [facility] Immature Granulocytes Absolute 0.01 0.0 - 0.20 th/mm3 11/07/2018 10:57 AM CLOTH BLEACHING SUPERVISOR [facility] [employer]Pro[employer]ify [facility] Serum specimen (specimen) BLOOD SPECIMEN / Unknown 11/07/2018 10:15 AM CLOTH BLEACHING SUPERVISOR 11/07/2018 10:40 AM CLOTH BLEACHING SUPERVISOR us Lacey Perdue MD LAB BLOOD ORDERABLES Final R esult [facility] [address] [place], [place] documented in this encounter Visit Diagnoses Diagnosis Encounter for long-term (current) use of antibiotics- Primary Primary localized osteoarthrosis Primary localized osteoarthrosis, unspecified site documented in this encounter Care Teams Auto Body Mechanic Apprentice Relationship Specialty Start Date End Date Coco Leos PA-C [address] [place] [id number] PCP - General Physician Barrel Cleaner 10/25/17 11/24/18 Denny Dey DO [address] [place] [address] Referring Physician Orthopedic Surgery 06/28/18 9 Lacey Perdue MD [address] [place] [phone] Referring Physician Infectious Diseases 06/28/18 documented as of this encounter
--- OUTSIDE RECORDS SUMMARY | 2024-11-23 00:30 | XMS_ITS | Encounter Summary ---
Author Organization [facility] Address [address] [place] [address] Care Team Providers Care Shooter'S Helper Name Role Phone RobertbetoGraceCoco Katt WISE Primary Care Provider [phone] Denny Dey DO Unavailable [phone] Lacey Perdue MD Unavailable Encounter Details Date Type Department Care Team (Latest Contact Info) Description 11/14/2018 Transcribe Orders [facility] [address] [place] [address] Lacey Perdue MD [address] [address] Encounter for long-term (current) use [...] Assessment Author No 10/25/2017 2:00 PM HAT PRESSER Deonna Galvan, GEORGE * Are you blind [...] as of this encounter Results * (ABNORMAL) C-reactive protein (11/14/2018 11:00 AM HAT PRESSER) CRP 1.30(H) 0.2 - 0.9 mg/dL 11/14/2018 12:39 PM HAT PRESSER [facility] Serum specimen (specimen) 11/14/2018 11:00 AM HAT PRESSER 11/14/2018 11:52 AM HAT PRESSER us Lacey Perdue MD LAB BLOOD ORDERABLES Final R esult [facility] [address] [place] * (ABNORMAL) Vancomycin, trough (11/14/2018 11:00 AM HAT PRESSER) Vancomycin Trough 10.8(H) 5.0 - 10.0 mcg/mL 11/14/2018 12:39 PM HAT PRESSER [facility] Serum specimen (specimen) 11/14/2018 11:00 AM HAT PRESSER 11/14/2018 11:52 AM HAT PRESSER Lacey Perdue MD LAB BLOOD ORDERABLES Final R esult [facility] [employer] [facility] [address] [place], [place] * (ABNORMAL) Comprehensive metabolic panel (11/14/2018 11:00 AM HAT PRESSER) Sodium 138 136 - 145 mmol/L 11/14/2018 12:39 PM [facility] [employer] [facility] Potassium 4.8 3.5 - 5.1 mmol/L 11/14/2018 12:39 PM [facility] Chloride 103 98 - 107 mmol/L 11/14/2018 12:39 PM [facility] CO2 26 21 - 32 mmol/L 11/14/2018 12:39 PM [facility] Glucose 109(H) 74 - 106 mg/dL 11/14/2018 12:39 PM [facility] BUN 9 7.0 - 18.0 mg/dL 11/14/2018 12:39 PM [facility] Creatinine 0.91 0.70 - 1.30 mg/dL 11/14/2018 12:39 PM [facility] Calcium 9.4 8.5 - 10.1 mg/dL 11/14/2018 12:39 PM [facility] Total Protein 7.0 6.4 - 8.2 g/dL 11/14/2018 12:39 PM [facility] [employer] [facility] Albumin 3.8 3.4 - 5.0 g/dL 11/14/2018 12:39 PM [facility] Bilirubin Total 0.5 0.2 - 1.0 mg/dL 11/14/2018 12:39 PM [facility] [employer] [facility] Alkaline Phosphatase 95 56 - 119 U/L 11/14/2018 12:39 PM [facility] AST 47(H) 15 - 37 U/L 11/14/2018 12:39 PM [facility] [employer] [facility] ALT 63 16 - 63 U/L 11/14/2018 12:39 PM [facility] [employer] [facility] Creatinine Based eGFR >60 11/14/2018 12:39 PM [facility] [employer] [facility] Comment: GFR REFERENCE RANGE: >60 mL/min/1.73m2 -- An eGFR of > than, or = to 60, may indicate normal renal function or mildly decreased GFR. EGFR /Ghanaian >60 11/14/2018 12:39 PM [facility] [employer] [facility] Comment: -- An eGFR of > than, or = to 60, may indicate normal renal function or mildly decreased GFR. Serum specimen (specimen) 11/14/2018 11:00 AM HAT PRESSER 11/14/2018 11:52 AM HAT PRESSER Lacey Perdue MD LAB BLOOD ORDERABLES Final R esult [facility] [address] [place], [place] documented in this encounter Visit Diagnoses Diagnosis Encounter for long-term (current) use of antibiotics- Primary Primary localized osteoarthrosis Primary localized osteoarthrosis, unspecified site documented in this encounter Care Teams Shooter'S Helper Relationship Specialty Start Date End Date Coco Leos PA-C [address] [place] [phone] PCP - General Physician Ball Fringe Machine Operator 10/25/17 11/24/18 Denny Dey DO [address] [place] [address] Referring Physician Orthopedic Surgery 8/14/18 10/1/1 9 Lacey Perdue MD [address] [address] Referring Physician Infectious Diseases 06/28/18 documented as of this encounter
--- OUTSIDE RECORDS SUMMARY | 2024-11-23 00:30 | XMS_ITS | Encounter Summary ---
Author Organization [employer] Address [address] [place] [address] Care Team Providers Care Cutting Machine Offbearer Name Role Phone RobertbetoGraceCoco Katt WISE Primary Care Provider [phone] Denny Dey DO Unavailable [phone] Lacey Perdue MD Unavailable [phone] Encounter Details Date Type Department Care Team (Latest Contact Info) Description 10/31/2018 Transcribe Orders [facility] [address] [place] [address] Lacey Perdue MD [address] [address] Encounter for long-term (current) use [...] of Assessment Author No 10/25/2017 2:00 PM FIREPROOF DOOR MAKER Deonna Galvan, GEORGE * Are you blind [...] documented as of this encounter Results * C-reactive protein (10/31/2018 11:40 AM FIREPROOF DOOR MAKER) CRP 0.60 0.2 - 0.9 mg/dL 10/31/2018 1:29 PM FIREPROOF DOOR MAKER [facility][1] [employer] [facility] Serum specimen (specimen) 10/31/2018 11:40 AM FIREPROOF DOOR MAKER 10/31/2018 12:49 PM FIREPROOF DOOR MAKER us Lacey Perdue MD LAB BLOOD ORDERABLES Final R esult [facility][1] [employer] [facility] [address] [place] * Vancomycin, trough (10/31/2018 11:40 AM FIREPROOF DOOR MAKER) Vancomycin Trough 7.4 5.0 - 10.0 mcg/mL 10/31/2018 1:29 PM FIREPROOF DOOR MAKER [facility][1] [employer] [facility] Serum specimen (specimen) 10/31/2018 11:40 AM FIREPROOF DOOR MAKER 10/31/2018 12:49 PM FIREPROOF DOOR MAKER us Lacey Perdue MD LAB BLOOD ORDERABLES Final R esult [facility][1] [facility] [address] [place] * (ABNORMAL) Sedimentation rate (10/31/2018 11:40 AM FIREPROOF DOOR MAKER) Sedimentation Rate 35(H) 0 - 20 mm/hr 10/31/2018 1:41 PM FIREPROOF DOOR MAKER [facility][1] [employer] [facility] Whole blood specimen (specimen) 10/31/2018 11:40 AM FIREPROOF DOOR MAKER 10/31/2018 12:49 PM FIREPROOF DOOR MAKER us Lacey Perdue MD LAB BLOOD ORDERABLES Final R esult [facility][1] [employer] [facility] [address] [place] * (ABNORMAL) Comprehensive metabolic panel (10/31/2018 11:40 AM FIREPROOF DOOR MAKER) Sodium 139 136 - 145 mmol/L 10/31/2018 1:29 PM FIREPROOF DOOR MAKER [facility][1] [facility] Potassium 4.0 3.5 - 5.1 mmol/L 10/31/2018 1:29 PM FIREPROOF DOOR MAKER [facility][1] [facility] Chloride 103 98 - 107 mmol/L 10/31/2018 1:29 PM FIREPROOF DOOR MAKER [facility][1] [facility] CO2 26 21 - 32 mmol/L 10/31/2018 1:29 PM [facility] Glucose 104 74 - 106 mg/dL 10/31/2018 1:29 PM FIREPROOF DOOR MAKER [facility][1] [facility] BUN 17 7.0 - 18.0 mg/dL 10/31/2018 1:29 PM [facility] [employer] [facility] Creatinine 0.99 0.70 - 1.30 mg/dL 10/31/2018 1:29 PM [facility] Calcium 9.1 8.5 - 10.1 mg/dL 10/31/2018 1:29 PM [facility] Total Protein 7.1 6.4 - 8.2 g/dL 10/31/2018 1:29 PM [facility] Albumin 3.9 3.4 - 5.0 g/dL 10/31/2018 1:29 PM [facility] Bilirubin Total 0.5 0.2 - 1.0 mg/dL 10/31/2018 1:29 PM [facility] [employer] [facility] Alkaline Phosphatase 93 56 - 119 U/L 10/31/2018 1:29 PM [facility] AST 44(H) 15 - 37 U/L 10/31/2018 1:29 PM [facility] ALT 61 16 - 63 U/L 10/31/2018 1:29 PM [facility] Creatinine Based eGFR >60 10/31/2018 1:29 PM [facility] [employer] [facility] Comment: GFR REFERENCE RANGE: >60 mL/min/1.73m2 -- An eGFR of > than, or = to 60, may indicate normal renal function or mildly decreased GFR. EGFR /Malaysian >60 10/31/2018 1:29 PM [facility] Comment: -- An eGFR of > than, or = to 60, may indicate normal renal function or mildly decreased GFR. Serum specimen (specimen) 10/31/2018 11:40 AM FIREPROOF DOOR MAKER 10/31/2018 12:49 PM FIREPROOF DOOR MAKER us Lacey Perdue MD LAB BLOOD ORDERABLES Final R esult [facility][1] [facility] [address] [place], [place] * (ABNORMAL) CBC and differential (10/31/2018 11:40 AM FIREPROOF DOOR MAKER) WBC 6.53 4.00 - 11.00 th/mm3 10/31/2018 1:09 PM [facility] RBC 5.09 4.50 - 6.50 mill/mm3 10/31/2018 1:09 PM [facility] HGB 15.0 13.8 - 18.0 g/dL 10/31/2018 1:09 PM [facility] HCT 44.7 40.0 - 54.0 % 10/31/2018 1:09 PM [facility] MCV 87.8 76 - 99 fL 10/31/2018 1:09 PM [facility] MCH 29.5 27.0 - 32.0 pg 10/31/2018 1:09 PM [facility] MCHC 33.6 30.0 - 35.0 g/dL 10/31/2018 1:09 PM [facility] Platelets 187 135 - 470 th/mm3 10/31/2018 1:09 PM [facility] RDW 12.5 11.0 - 17.0 % 10/31/2018 1:09 PM [facility] MPV 9.9 8.0 - 12.5 fL 10/31/2018 1:09 PM [facility] Differential Type AUTOMATED DIFFERENTIAL 10/31/2018 1:09 PM [facility] Neutrophil % 54.8 45.0 - 75.0 % 10/31/2018 1:09 PM [facility] Lymphocytes % 26.8 20.0 - 45.0 % 10/31/2018 1:09 PM [facility] Monocyte % 12.1(H) 0.0 - 10.0 % 10/31/2018 1:09 PM [facility] Eosinophils Relative % 5.7(H) 0.0 - 5.0 % 10/31/2018 1:09 PM [facility] Basophils % 0.3 0.0 - 2.0 % 10/31/2018 1:09 PM [facility] Immature Granulocytes% 0.3 0.0 - 1.6 % 10/31/2018 1:09 PM [facility] Neutrophils Absolute 3.58 2.00 - 7.90 th/mm3 10/31/2018 1:09 PM [facility] [facility] Lymphocytes Absolute 1.75 1.00 - 4.00 th/mm3 10/31/2018 1:09 PM FIREPROOF DOOR MAKER [facility][1] [employer]Fire[employer] [facility] Monos Absolute 0.79 0.00 - 0.80 th/mm3 10/31/2018 1:09 PM [facility] Eosinophils Absolute Count 0.37 0.00 - 0.40 th/mm3 10/31/2018 1:09 PM [facility] Basophils Absolute 0.02 0.00 - 0.10 th/mm3 10/31/2018 1:09 PM [facility] [employer] [facility] Immature Granulocytes Absolute 0.02 0.0 - 0.20 th/mm3 10/31/2018 1:09 PM [facility] [employer] Serum specimen (specimen) BLOOD SPECIMEN / Unknown 10/31/2018 11:40 AM FIREPROOF DOOR MAKER 10/31/2018 12:49 PM FIREPROOF DOOR MAKER us Lacey Perdue MD LAB BLOOD ORDERABLES Final R esult [facility][1] [employer] [facility] [address] [place], [place] documented in this encounter Visit Diagnoses Diagnosis Encounter for long-term (current) use of antibiotics- Primary Primary localized osteoarthrosis Primary localized osteoarthrosis, unspecified site documented in this encounter Care Teams Cutting Machine Offbearer Relationship Specialty Start Date End Date Coco Leos PA-C [address] [place] [address] PCP - General Physician Imaging Scheduler 10/25/17 11/24/18 Denny Dey DO [address] [place] [id number] Referring Physician Orthopedic Surgery 06/28/18 9 Lacey Perdue MD [address] [phone] Referring Physician Infectious Diseases 06/28/18 documented as of this encounter
--- OUTSIDE RECORDS SUMMARY | 2024-11-23 00:30 | XMS_ITS | Encounter Summary ---
Author Organization [facility] Address [address] [place] [address] Care Team Providers Care Client Architect Name Role Phone Coco Leos PA-C Primary Care Provider [phone] Denny Dey DO Unavailable [phone] Lacey Perdue MD Unavailable [phone] Encounter Details Date Type Department Care Team (Latest Contact Info) Description 10/31/2018 11:40 AM TAX ATTORNEY - 10/31/2018 11:59 PM TAX ATTORNEY Hospital Encounter [facility] [address] [place] [phone] Encounter for long-term (current) use of antibiotics; [...] of Assessment Author No 10/25/2017 2:00 PM TAX ATTORNEY Galvan, Am y S, RN UROLOGY * Do you have serious difficulty walking [...] mouth nightly. 30 tablet 5 08/09/2018 03/03/2019 Diclofenac Sodium 1 % CREA Place onto [...] mouth every 12 (twelve) hours. 60 tablet 10/04/2018 11/02/2018 oxyCODONE-acetami nophen (PERCOCET) 10-325 MG per tablet Take 1 tablet by mouth every 6 (six) hours as needed for Pain. 120 tablet 10/04/2018 11/02/2018 tamsulosin HCl (FLOMAX) 0.4 MG capsule Take 1 capsule by mouth daily. 30 capsule 10/04/2018 11/03/2018 documented as of this encounter Plan of Treatment Not on file documented as of this encounter Goals Goal Patient Goal Type Associated Problems Recent Progress Patient-Stated? Author Blood Pressure < 140/90 Blood Pressure 134/86(2022 2:25 PM CDT) Leonard Montiel APRN documented as of this encounter Procedures Procedure Name Priority Date/Time Associated Diagnosis Comments SEDIMENTATION RATE Routine 10/31/2018 11 :40 AM TAX ATTORNEY Encounter for long-term (current) use of antibiotics Primary localized osteoarthrosis CBC AND DIFFERENTIAL Routine 10/31/2018 11:40 AM TAX ATTORNEY Encounter for long-term (current) use of antibiotics Primary localized osteoarthrosis C-REACTIVE PROTEIN Routine 10/31/2018 11 :40 AM TAX ATTORNEY Encounter for long-term (current) use of antibiotics Primary localized osteoarthrosis VANCOMYCIN, TROUGH Routine 10/31/2018 11 :40 AM TAX ATTORNEY Encounter for long-term (current) use of antibiotics Primary localized osteoarthrosis COMPREHENSIVE METABOLIC PANEL Routine 10/31/2018 11:40 AM TAX ATTORNEY Encounter for long-term (current) use of antibiotics Primary localized osteoarthrosis documented in this encounter Results * C-reactive protein (10/31/2018 11:40 AM TAX ATTORNEY) CRP 0.60 0.2 - 0.9 mg/dL 10/31/2018 1:29 PM TAX ATTORNEY [facility] [email or web address] [facility] Serum specimen (specimen) 10/31/2018 11:40 AM TAX ATTORNEY 10/31/2018 12:49 PM TAX ATTORNEY us Lacey Perdue MD LAB BLOOD ORDERABLES Final R esult [facility] [email or web address] [facility] [address] [place], [place] * Vancomycin, trough (10/31/2018 11:40 AM TAX ATTORNEY) Vancomycin Trough 7.4 5.0 - 10.0 mcg/mL 10/31/2018 1:29 PM TAX ATTORNEY [facility] [employer] [facility] Serum specimen (specimen) 10/31/2018 11:40 AM TAX ATTORNEY 10/31/2018 12:49 PM TAX ATTORNEY us Lacey Perdue MD LAB BLOOD ORDERABLES Final R esult [facility] [employer] [facility] [address] [place] * (ABNORMAL) Sedimentation rate (10/31/2018 11:40 AM TAX ATTORNEY) Sedimentation Rate 35(H) 0 - 20 mm/hr 10/31/2018 1:41 PM TAX ATTORNEY [facility] [employer] [employer] Whole blood specimen (specimen) 10/31/2018 11:40 AM TAX ATTORNEY 10/31/2018 12:49 PM TAX ATTORNEY us Lacey Perdue MD LAB BLOOD ORDERABLES Final R esult [facility] [employer] [facility] [address] [place] * (ABNORMAL) Comprehensive metabolic panel (10/31/2018 11:40 AM TAX ATTORNEY) Sodium 139 136 - 145 mmol/L 10/31/2018 1:29 PM TAX ATTORNEY [facility] [employer] [employer] Potassium 4.0 3.5 - 5.1 mmol/L 10/31/2018 1:29 PM TAX ATTORNEY [facility] [employer] Chloride 103 98 - 107 mmol/L 10/31/2018 1:29 PM [facility] [employer] [employer] CO2 26 21 - 32 mmol/L 10/31/2018 1:29 PM [facility] [employer] Glucose 104 74 - 106 mg/dL 10/31/2018 1:29 PM [facility] [employer] [employer] BUN 17 7.0 - 18.0 mg/dL 10/31/2018 1:29 PM [facility] [employer] [employer] Creatinine 0.99 0.70 - 1.30 mg/dL 10/31/2018 1:29 PM [facility] [employer] [facility] Calcium 9.1 8.5 - 10.1 mg/dL 10/31/2018 1:29 PM [facility] [employer] [facility] Total Protein 7.1 6.4 - 8.2 g/dL 10/31/2018 1:29 PM [facility] [employer] [facility] Albumin 3.9 3.4 - 5.0 g/dL 10/31/2018 1:29 PM [facility] [employer] [facility] Bilirubin Total 0.5 0.2 - 1.0 mg/dL 10/31/2018 1:29 PM [facility] [employer] [facility] Alkaline Phosphatase 93 56 - 119 U/L 10/31/2018 1:29 PM [facility] [employer] [facility] AST 44(H) 15 - 37 U/L 10/31/2018 1:29 PM [facility] [employer] [employer] ALT 61 16 - 63 U/L 10/31/2018 1:29 PM [facility] [employer] [employer] Creatinine Based eGFR >60 10/31/2018 1:29 PM [facility] [employer] [facility] Comment: GFR REFERENCE RANGE: >60 mL/min/1.73m2 -- An eGFR of > than, or = to 60, may indicate normal renal function or mildly decreased GFR. EGFR /Algerian >60 10/31/2018 1:29 PM [facility] [employer] [employer] Comment: -- An eGFR of > than, or = to 60, may indicate normal renal function or mildly decreased GFR. Serum specimen (specimen) 10/31/2018 11:40 AM TAX ATTORNEY 10/31/2018 12:49 PM TAX ATTORNEY us Lacey Perdue MD LAB BLOOD ORDERABLES Final R esult [facility] [employer] [address] [place], [place] * (ABNORMAL) CBC and differential (10/31/2018 11:40 AM TAX ATTORNEY) WBC 6.53 4.00 - 11.00 th/mm3 10/31/2018 1:09 PM [facility] RBC 5.09 4.50 - 6.50 mill/mm3 10/31/2018 1:09 PM [facility] HGB 15.0 13.8 - 18.0 g/dL 10/31/2018 1:09 PM [facility] HCT 44.7 40.0 - 54.0 % 10/31/2018 1:09 PM [facility] MCV 87.8 76 - 99 fL 10/31/2018 1:09 PM [facility] MCH 29.5 27.0 - 32.0 pg 10/31/2018 1:09 PM [facility] MCHC 33.6 30.0 - 35.0 g/dL 10/31/2018 1:09 PM [facility] Platelets 187 135 - 470 th/mm3 10/31/2018 1:09 PM [facility] RDW 12.5 11.0 - 17.0 % 10/31/2018 1:09 PM [facility] MPV 9.9 8.0 - 12.5 fL 10/31/2018 1:09 PM [facility] Differential Type AUTOMATED DIFFERENTIAL 10/31/2018 1:09 PM [facility] Neutrophil % 54.8 45.0 - 75.0 % 10/31/2018 1:09 PM [facility] Lymphocytes % 26.8 20.0 - 45.0 % 10/31/2018 1:09 PM [facility] Monocyte % 12.1(H) 0.0 - 10.0 % 10/31/2018 1:09 PM [facility] Eosinophils Relative % 5.7(H) 0.0 - 5.0 % 10/31/2018 1:09 PM [facility] Basophils % 0.3 0.0 - 2.0 % 10/31/2018 1:09 PM [facility] [employer] [facility] Immature Granulocytes% 0.3 0.0 - 1.6 % 10/31/2018 1:09 PM [facility] [employer] [facility] Neutrophils Absolute 3.58 2.00 - 7.90 th/mm3 10/31/2018 1:09 PM [facility] [employer] [facility] Lymphocytes Absolute 1.75 1.00 - 4.00 th/mm3 10/31/2018 1:09 PM TAX ATTORNEY [facility] Monos Absolute 0.79 0.00 - 0.80 th/mm3 10/31/2018 1:09 PM [facility] [employer] [facility] Eosinophils Absolute Count 0.37 0.00 - 0.40 th/mm3 10/31/2018 1:09 PM [facility] [employer]In[employer] [facility] Basophils Absolute 0.02 0.00 - 0.10 th/mm3 10/31/2018 1:09 PM [facility] [employer] [facility] Immature Granulocytes Absolute 0.02 0.0 - 0.20 th/mm3 10/31/2018 1:09 PM [facility] [employer] [facility] Serum specimen (specimen) BLOOD SPECIMEN / Unknown 10/31/2018 11:40 AM TAX ATTORNEY 10/31/2018 12:49 PM [facility] us Lacey Perdue MD LAB BLOOD ORDERABLES Final R esult [facility] [employer] [facility] [address] [place], [place] documented in this encounter Visit Diagnoses Diagnosis Encounter for long-term (current) use of antibiotics Primary localized osteoarthrosis Primary localized osteoarthrosis, unspecified site documented in this encounter Care Teams Client Architect Relationship Specialty Start Date End Date Coco Leos PA-C [address] [place] [address] PCP - General Physician Sand Mixer 10/25/17 11/24/18 Denny Dey DO [address] [place] [address] Referring Physician Orthopedic Surgery 06/28/18 9 Lacey Perdue MD [address] [phone] Referring Physician Infectious Diseases 06/28/18 documented as of this encounter
--- OUTSIDE RECORDS SUMMARY | 2024-11-23 00:30 | XMS_ITS | Encounter Summary ---
Author Organization [facility] Address [address] [place] [address] Care Team Providers Care Electrophysiology Nurse Practitioner Name Role Phone Coco Leos PA-C Primary Care Provider [phone] Denny Dey DO Unavailable [phone] Lacey Perdue MD Unavailable [phone] Encounter Details Date Type Department Care Team (Latest Contact Info) Description 10/03/2018 12:30 PM MOBILE MECHANIC - 10/03/2018 11:59 PM MOBILE MECHANIC Hospital Encounter [facility] [address] [place] [phone] Encounter for long-term (current) use of antibiotics; [...] of Assessment Author No 10/25/2017 2:00 PM MOBILE MECHANIC Galvan, Am y S, LEATHER WORKER * Do you have serious difficulty [...] 1 tablet by mouth nightly. 30 tablet 3 07/11/2018 10/04/2018 baclofen (LIORESAL) 10 MG tablet Take 1 [...] (MS CONTIN) 30 MG extended release tablet TAKE ONE TABLET EVERY 12 HOURS. 60 tablet 08/09/2018 10/04/2018 oxyCODONE-acetami nophen (PERCOCET) 10-325 MG per tablet Take 1 tablet by mouth every 6 (six) hours as needed for Pain. 120 tablet 08/03/2018 10/04/2018 tamsulosin HCl (FLOMAX) 0.4 MG capsule Take 1 capsule by mouth daily. 30 capsule 08/31/2018 10/04/2018 documented as of this encounter Plan of Treatment Not on file documented as of this encounter Goals Goal Patient Goal Type Associated Problems Recent Progress Patient-Stated? Author Blood Pressure < 140/90 Blood Pressure 134/86(2022 2:25 PM CDT) No Leonard Jasso APRN documented as of this encounter Procedures Procedure Name Priority Date/Time Associated Diagnosis Comments SEDIMENTATION RATE Routine 10/03/2018 12 :30 PM MOBILE MECHANIC Encounter for long-term (current) use of antibiotics Primary localized osteoarthrosis CBC AND DIFFERENTIAL Routine 10/03/2018 12:30 PM MOBILE MECHANIC Encounter for long-term (current) use of antibiotics Primary localized osteoarthrosis C-REACTIVE PROTEIN Routine 10/03/2018 12 :30 PM MOBILE MECHANIC Encounter for long-term (current) use of antibiotics Primary localized osteoarthrosis VANCOMYCIN, TROUGH Routine 10/03/2018 12 :30 PM MOBILE MECHANIC Encounter for long-term (current) use of antibiotics Primary localized osteoarthrosis COMPREHENSIVE METABOLIC PANEL Routine 10/03/2018 12:30 PM MOBILE MECHANIC Encounter for long-term (current) use of antibiotics Primary localized osteoarthrosis documented in this encounter Results * Vancomycin, trough (10/03/2018 12:30 PM MOBILE MECHANIC) Vancomycin Trough 9.4 5.0 - 10.0 mcg/mL [facility] [employer] Blood specimen (specimen) 10/03/2018 12:30 PM MOBILE MECHANIC 10/03/2018 2:14 PM MOBILE MECHANIC us Lacey Perdue MD LAB BLOOD ORDERABLES Final R esult [facility] [address] [place], [place] [phone] * (ABNORMAL) Sedimentation rate (10/03/2018 12:30 PM MOBILE MECHANIC) Sedimentation Rate 25(H) 0 - 20 mm/hr [facility] Blood specimen (specimen) 10/03/2018 12:30 PM MOBILE MECHANIC 10/03/2018 2:14 PM MOBILE MECHANIC us Lacey Perdue MD LAB BLOOD ORDERABLES Final R esult [facility] [employer] [facility] [address] [place], [place] [phone] * (ABNORMAL) Comprehensive metabolic panel (10/03/2018 12:30 PM MOBILE MECHANIC) Sodium 139 136 - 145 mmol/L [facility] [employer] Potassium 3.8 3.5 - 5.1 mmol/L [facility] [employer] [facility] [employer] [facility] Establishments[facility] Chloride 103 98 - 107 mmol/L [facility] [employer] [facility] Establish[facility] CO2 24 21 - 32 mmol/L [facility] [employer] Glucose 127(H) 74 - 106 mg/dL [facility] [employer] [facility] BUN 10 7.0 - 18.0 mg/dL [facility] [employer] Creatinine 1.07 0.70 - 1.30 mg/dL [facility] [employer] [facility]ounge Establishments[facility] Calcium 8.6 8.5 - 10.1 mg/dL [facility] [employer] [facility] Total Protein 7.2 6.4 - 8.2 g/dL [facility] [employer] [facility] Establishments[facility] Albumin 3.8 3.4 - 5.0 g/dL [facility] [employer] [facility] Bilirubin Total 0.5 0.2 - 1.0 mg/dL [facility] [employer] Alkaline Phosphatase 100 56 - 119 U/L [facility] [employer]QUEST [facility] AST 54(H) 15 - 37 U/L [facility] [employer] [facility] ALT 77 12 - 78 U/L [facility] [employer] TechnologiesQUEST [facility] Creatinine Based eGFR >60 [facility] [employer] TechnologiesQUEST [facility] Comment: GFR REFERENCE RANGE: >60 mL/min/1.73m2 -- An eGFR of > than, or = to 60, may indicate normal renal function or mildly decreased GFR. EGFR /Singaporean >60 [facility] Comment: -- An eGFR of > than, or = to 60, may indicate normal renal function or mildly decreased GFR. Blood specimen (specimen) 10/03/2018 12:30 PM MOBILE MECHANIC 10/03/2018 2:14 PM MOBILE MECHANIC Lacey Perdue MD LAB BLOOD ORDERABLES Final R esult [facility] [address] [place], [place] [phone] * CBC and differential (10/03/2018 12:30 PM MOBILE MECHANIC) WBC 7.73 4.00 - 11.00 th/mm3 [facility] RBC 5.24 4.50 - 6.50 mill/mm3 [facility] HGB 15.5 13.8 - 18.0 g/dL [facility] HCT 46.2 40.0 - 54.0 % [facility] MCV 88.2 76 - 99 fL [facility] MCH 29.6 27.0 - 32.0 pg [facility] MCHC 33.5 30.0 - 35.0 g/dL [facility] Platelets 195 135 - 470 th/mm3 [facility] RDW 13.5 11.0 - 17.0 % [facility] MPV 9.8 8.0 - 12.5 fL [facility] Differential Type AUTOMATED DIFFERENTIAL [facility] Neutrophil % 55.2 45.0 - 75.0 % [facility] Lymphocytes % 30.3 20.0 - 45.0 % [facility] Monocyte % 9.7 0.0 - 10.0 % [facility] Eosinophils Relative % 4.1 0.0 - 5.0 % [facility] Basophils % 0.4 0.0 - 2.0 % [facility] Immature Granulocytes% 0.3 0.0 - 1.6 % [facility] Neutrophils Absolute 4.27 2.00 - 7.900 th/mm3 [facility] Lymphocytes Absolute 2.34 1.00 - 4.00 th/mm3 [facility] Monos Absolute 0.75 0.0 - 0.80 th/mm3 [facility] Eosinophils Absolute Count 0.32 0.00 - 0.40 th/mm3 [facility] Basophils Absolute 0.03 0.00 - 0.10 th/mm3 [facility] Immature Granulocytes Absolute 0.02 0.0 - 0.20 th/mm3 [facility] [employer] [facility]ishments[facility] Blood specimen (specimen) BLOOD SPECIMEN / Unknown 10/03/2018 12:30 PM MOBILE MECHANIC 10/03/2018 2:14 PM MOBILE MECHANIC us Lacey Perdue MD LAB BLOOD ORDERABLES Edited Result - Final [facility] [address] [place], [place] [phone] * (ABNORMAL) C-reactive protein (10/03/2018 12:30 PM MOBILE MECHANIC) CRP <0.20(L) 0.2 - 0.9 mg/dL [facility] [employer] [facility] Blood specimen (specimen) 10/03/2018 12:30 PM MOBILE MECHANIC 10/03/2018 2:14 PM MOBILE MECHANIC us Lacey Perdue MD LAB BLOOD ORDERABLES Final R esult [facility] [address] [place], [place] [phone] documented in this encounter Visit Diagnoses Diagnosis Encounter for long-term (current) use of antibiotics Primary localized osteoarthrosis Primary localized osteoarthrosis, unspecified site documented in this encounter Care Teams Electrophysiology Nurse Practitioner Relationship Specialty Start Date End Date Coco Leos PA-C [address] [place] [address] PCP - General Physician Booking Police Officer 10/25/17 11/24/18 Denny Dey DO [address] [place] [address] Referring Physician Orthopedic Surgery 06/28/18 9 Lacey Perdue MD [address] [phone] Referring Physician Infectious Diseases 06/28/18 documented as of this encounter
--- OUTSIDE RECORDS SUMMARY | 2024-11-23 00:30 | XMS_ITS | Encounter Summary ---
Author Organization [facility] Address [address] [place] [address] Care Team Providers Care Spiral Runner Name Role Phone RobertbetoGraceCoco Katt WISE Primary Care Provider [phone] Denny Dey DO Unavailable [phone] Lacey Perdue MD Unavailable [phone] Encounter Details Date Type Department Care Team (Latest Contact Info) Description 10/28/2018 Transcribe Orders [facility] [address] [place] [phone] Lacey Perdue MD [address] [phone] Encounter for long-term (current) use [...] of Assessment Author No 10/25/2017 2:00 PM SUPERVISOR SOLDERING Deonna Galvan, GEORGE * Are you blind [...] of this encounter Results * Vancomycin, trough (10/28/2018 12:15 PM SUPERVISOR SOLDERING) Vancomycin Trough 7.1 5.0 - 10.0 mcg/mL 10/28/2018 2:04 PM SUPERVISOR SOLDERING [facility] Serum specimen (specimen) 10/28/2018 12:15 PM SUPERVISOR SOLDERING 10/28/2018 1:04 PM SUPERVISOR SOLDERING us Lacey Perdue MD LAB BLOOD ORDERABLES Final R esult [facility] [address] [place] * (ABNORMAL) Basic metabolic panel (10/28/2018 12:15 PM SUPERVISOR SOLDERING) Sodium 140 136 - 145 mmol/L 10/28/2018 2:04 PM [facility] CARTExagen DiagnosticsQUEST LAB Potassium 4.0 3.5 - 5.1 mmol/L 10/28/2018 2:04 PM [facility] [employer] [facility] Chloride 104 98 - 107 mmol/L 10/28/2018 2:04 PM [facility] [employer]THATian[employer] [facility] CO2 25 21 - 32 mmol/L 10/28/2018 2:04 PM [facility] [employer] [facility] Glucose 145(H) 74 - 106 mg/dL 10/28/2018 2:04 PM [facility] [employer] [facility] BUN 16 7.0 - 18.0 mg/dL 10/28/2018 2:04 PM [facility] [employer] Creatinine 1.05 0.70 - 1.30 mg/dL 10/28/2018 2:04 PM [facility] [employer] Calcium 8.9 8.5 - 10.1 mg/dL 10/28/2018 2:04 PM [facility] [employer]QUEST [facility] Creatinine Based eGFR >60 10/28/2018 2:04 PM [facility] [employer]ikerQUEST LAB Comment: GFR REFERENCE RANGE: >60 mL/min/1.73m2 -- An eGFR of > than, or = to 60, may indicate normal renal function or mildly decreased GFR. EGFR /Karla n >60 10/28/2018 2:04 PM [facility] NetzoptikerQUEST LAB Comment: -- An eGFR of > than, or = to 60, may indicate normal renal function or mildly decreased GFR. Serum specimen (specimen) 10/28/2018 12:15 PM SUPERVISOR SOLDERING 10/28/2018 1:04 PM SUPERVISOR SOLDERING us Lacey Perdue MD LAB BLOOD ORDERABLES Final R esult [facility]QUEST LAB [address] [place], [place] documented in this encounter Visit Diagnoses Diagnosis Encounter for long-term (current) use of antibiotics- Primary Primary localized osteoarthrosis Primary localized osteoarthrosis, unspecified site documented in this encounter Care Teams Spiral Runner Relationship Specialty Start Date End Date Coco Leos PA-C [address] [place] [address] PCP - General Physician Vacuum Form Operator 10/25/17 11/24/18 Denny Dey DO [address] [place] [address] Referring Physician Orthopedic Surgery 06/28/18 9 Lacey Perdue MD [address] [phone] Referring Physician Infectious Diseases 06/28/18 documented as of this encounter
--- OUTSIDE RECORDS SUMMARY | 2024-11-23 00:30 | XMS_ITS | Encounter Summary ---
Author Organization [employer] Address [address] [place] [address] Care Team Providers Care Gas Station Service Attendant Name Role Phone RobertbetoGraceCoco Katt WISE Primary Care Provider [phone] Denny Dey DO Unavailable [phone] Lacey Perdue MD Unavailable Encounter Details Date Type Department Care Team (Latest Contact Info) Description 11/11/2018 Transcribe Orders [facility] [address] [place] [address] Lacey Perdue MD [address] [address] Encounter for long-term (current) use [...] of Assessment Author No 10/25/2017 2:00 PM TEXTILE MACHINE MECHANIC Deonna Galvan, GEORGE * Are you blind [...] of this encounter Results * Vancomycin, trough (11/11/2018 11:00 AM TEXTILE MACHINE MECHANIC) Vancomycin Trough 7.1 5.0 - 10.0 mcg/mL 11/11/2018 12:42 PM TEXTILE MACHINE MECHANIC [facility] Serum specimen (specimen) 11/11/2018 11:00 AM TEXTILE MACHINE MECHANIC 11/11/2018 12:02 PM TEXTILE MACHINE MECHANIC us Lacey Perdue MD LAB BLOOD ORDERABLES Final R esult [facility] [address] [facility] [place] * (ABNORMAL) Basic metabolic panel (11/11/2018 11:00 AM TEXTILE MACHINE MECHANIC) Sodium 137 136 - 145 mmol/L 11/11/2018 12:37 PM [facility]henscorner[facility] Potassium 4.2 3.5 - 5.1 mmol/L 11/11/2018 12:37 PM [facility] CARTAidhenscornerQUEST [facility] Chloride 102 98 - 107 mmol/L 11/11/2018 12:37 PM [facility] CARTHAWangdaizhijia [facility] CO2 26 21 - 32 mmol/L 11/11/2018 12:37 PM [facility] CARTViacore [facility] Glucose 162(H) 74 - 106 mg/dL 11/11/2018 12:37 PM [facility] CARTViacore [facility] BUN 13 7.0 - 18.0 mg/dL 11/11/2018 12:37 PM [facility] Creatinine 0.93 0.70 - 1.30 mg/dL 11/11/2018 12:37 PM [facility] Consult [employer]AAcceleforceQUEST [facility] Calcium 9.0 8.5 - 10.1 mg/dL 11/11/2018 12:37 PM [facility] Creatinine Based eGFR >60 11/11/2018 12:37 PM [facility] CARTAidhenscornerQUEST [facility] Comment: GFR REFERENCE RANGE: >60 mL/min/1.73m2 -- An eGFR of > than, or = to 60, may indicate normal renal function or mildly decreased GFR. EGFR /Karla n >60 11/11/2018 12:37 PM [facility] Comment: -- An eGFR of > than, or = to 60, may indicate normal renal function or mildly decreased GFR. Serum specimen (specimen) 11/11/2018 11:00 AM TEXTILE MACHINE MECHANIC 11/11/2018 12:02 PM TEXTILE MACHINE MECHANIC us Lacey Perdue MD LAB BLOOD ORDERABLES Final R esult [facility] [address] [place], [place] documented in this encounter Visit Diagnoses Diagnosis Encounter for long-term (current) use of antibiotics- Primary Primary localized osteoarthrosis Primary localized osteoarthrosis, unspecified site documented in this encounter Care Teams Gas Station Service Attendant Relationship Specialty Start Date End Date Coco Leos PA-C [address] [place] [address] PCP - General Physician Billet Inspector 10/25/17 11/24/18 Denny Dey DO [address] [place] [address] Referring Physician Orthopedic Surgery 06/28/18 9 Lacey Perdue MD [address] [phone] Referring Physician Infectious Diseases 06/28/18 documented as of this encounter
--- OUTSIDE RECORDS SUMMARY | 2024-11-23 00:30 | XMS_ITS | Encounter Summary ---
Author Organization [employer] Address [address] [place] [address] Care Team Providers Care Supervisor Long Goods Name Role Phone Coco Leso PA-C Primary Care Provider [phone] Denny Dey DO Unavailable [phone] Lacey Perdue MD Unavailable [phone] Encounter Details Date Type Department Care Team (Latest Contact Info) Description 10/28/2018 12:15 PM MOTOR EXPRESS CLERK - 10/28/2018 11:59 PM MOTOR EXPRESS CLERK Hospital Encounter [facility] [address] [place] [phone] Encounter for long-term (current) use of antibiotics; [...] of Assessment Author No 10/25/2017 2:00 PM MOTOR EXPRESS CLERK Galvan, Am y S, RETIREMENT OFFICER * Do you have serious difficulty walking or climbing stairs? (5 years old or older) Answer Date of Assessment Author No 10/25/2017 2:00 PM Deonna Padilla ARNP * Do you have difficulty dressing or bathing? (5 years old or older) Answer Date of Assessment Author No 10/25/2017 2:00 PM Deonna aPdilla, GEORGE * Because of a physical, mental, [...] Procedure Name Priority Date/Time Associated Diagnosis Comments VANCOMYCIN, TROUGH Routine 10/28/2018 12 :15 PM MOTOR EXPRESS CLERK Encounter for long-term (current) use of antibiotics Primary localized osteoarthrosis BASIC METABOLIC PANEL Routine 10/28/2018 12:15 PM MOTOR EXPRESS CLERK Encounter for long-term (current) use of antibiotics Primary localized osteoarthrosis documented in this encounter Results * Vancomycin, trough (10/28/2018 12:15 PM MOTOR EXPRESS CLERK) Vancomycin Trough 7.1 5.0 - 10.0 mcg/mL 10/28/2018 2:[address] [facility] Serum specimen (specimen) 10/28/2018 12:15 PM MOTOR EXPRESS CLERK 10/28/2018 1:04 PM MOTOR EXPRESS CLERK us Lacey Perdue MD LAB BLOOD ORDERABLES Final R esult [facility] MiningQUEST [facility] [address] [place], [place] * (ABNORMAL) Basic metabolic panel (10/28/2018 12:15 PM MOTOR EXPRESS CLERK) Sodium 140 136 - 145 mmol/L 10/28/2018 2:[address] [facility] CARTVirtual Iron Software [facility] Potassium 4.0 3.5 - 5.1 mmol/L 10/28/2018 2:[address] [facility] [employer] [facility] Chloride 104 98 - 107 mmol/L 10/28/2018 2:[address] [facility] [employer] MiningQUEST LAB CO2 25 21 - 32 mmol/L 10/28/2018 2:[address] [facility] [employer] MiningQUEST LAB Glucose 145(H) 74 - 106 mg/dL 10/28/2018 2:[address] [facility] [employer]Virtual [employer] Software [facility] BUN 16 7.0 - 18.0 mg/dL 10/28/2018 2:[address] [facility] Creatinine 1.05 0.70 - 1.30 mg/dL 10/28/2018 2:[address] [facility] Calcium 8.9 8.5 - 10.1 mg/dL 10/28/2018 2:[address] [facility] [employer] [facility] Creatinine Based eGFR >60 10/28/2018 2:[address] [facility] [employer]Virtual [employer] Software [facility] Comment: GFR REFERENCE RANGE: >60 mL/min/1.73m2 -- An eGFR of > than, or = to 60, may indicate normal renal function or mildly decreased GFR. EGFR /Karla n >60 10/28/2018 2:[address] [facility] Comment: -- An eGFR of > than, or = to 60, may indicate normal renal function or mildly decreased GFR. Serum specimen (specimen) 10/28/2018 12:15 PM MOTOR EXPRESS CLERK 10/28/2018 1:04 PM MOTOR EXPRESS CLERK us Lacey Perdue MD LAB BLOOD ORDERABLES Final R esult [facility] [employer] [facility] [address] [place], [place] documented in this encounter Visit Diagnoses Diagnosis Encounter for long-term (current) use of antibiotics Primary localized osteoarthrosis Primary localized osteoarthrosis, unspecified site documented in this encounter Care Teams Supervisor Long Goods Relationship Specialty Start Date End Date Coco Leos PA-C [address] [place] [address] PCP - General Physician Experience Specialist 10/25/17 11/24/18 Denny Dey DO [address] [place] [address] Referring Physician Orthopedic Surgery 06/28/18 9 Lacey Perdue MD [address] [phone] Referring Physician Infectious Diseases 06/28/18 documented as of this encounter
--- OUTSIDE RECORDS SUMMARY | 2024-11-23 00:30 | XMS_ITS | Encounter Summary ---
Author Organization [employer] Address [address] [place] [address] Care Team Providers Care Bull Riveter Name Role Phone Coco Leos PA-C Primary Care Provider [phone] Denny Dey DO Unavailable [phone] Lacey Perdue MD Unavailable [phone] Reason for Visit * Reason Onset Date Comments non-compliance with controlled substance agreeme nt 10/03/2018 Encounter Details Date Type Department Care Team (Late st Contact Info) Description 10/03/[address] [address] Yael Smi, [place] [address] [facility] [address] [place] [address] non-compliance with controlled substance agreement Social History Tobacco Use Types Packs/Day Years [...] of Assessment Author No 10/25/2017 2:00 PM MACERATOR OPERATOR Deonna Galvan ARNP * Are you blind or do you have serious difficulty seeing, even when wearing glasses? Answer Date of Assessment Author No 10/25/2017 2:00 PM MACERATOR OPERATOR Deonna Galvan, AIRCRAFT PILOT * Do you have serious difficulty walking or climbing stairs? (5 years old or older) Answer Date of Assessment Author No 10/25/2017 2:00 PM MACERATOR OPERATOR Deonna Galvan, AIRCRAFT PILOT * Do you have difficulty dressing or bathing? (5 years old or older) Answer Date of Assessment Author No 10/25/2017 2:00 PM MACERATOR OPERATOR Deonna Galvan, AIRCRAFT PILOT * Because of a physical, mental, or emotional condition, do you have difficulty doing errands alone such as visiting a doctor's office or shopping? (15 years old or older) Answer Date of Assessment Author No 10/25/2017 2:00 PM Deonna Padilla, AIRCRAFT PILOT documented as of this encounter Mental Status * Because of a physical, mental, or emotional condition, do you have serious difficulty concentrating, remembering, or making decisions? (5 years old or older) Answer Entry Date Author No 10/25/2017 2:00 PM Deonna Padilla, GEORGE documented in this encounter Miscellaneous Notes * Telephone Encounter - Yael Sim [place] Crockett - 10/03/2018 4:40 PM MACERATOR OPERATOR Images from the original note were not included. Message Received: Today Message Contents Mandi Lucia [facility] Cc: TIFFANI Galeano Caller: Patient (Today, ??9:30 AM) ?? Provider: Romero RE: Refill Request Patient called requesting his refills. morphine (MS CONTIN) 30 MG extended release tablet oxyCODONE-acetaminophen (PERCOCET) 10-325 MG per tablet amitriptyline (ELAVIL) 75 MG tablet tamsulosin HCl (FLOMAX) 0.4 MG capsule Patient uses [facility]. Please call patient when scripts are prepared. Thank you Yani S Patient had been seen in the clinic by interim provider when clinic provider out of office. Paper scripts had been written for pt's refill of morphine and oxycodone-acetaminophen. This nurse called the pharmacy to ascertain the date the scripts had been written. Pharmacist notified this nurse that pt had also been scripted another script for oxycodone-acetaminophen 5-[address] Dey on 09/14/2018. Notified provider. Provider denied refill of morphine et oxycodone- acetaminophen 10-325 d/t pt violation of controlled substance agreement. Provider requested this nurse to contact Zenaida Alejandre, clinical catering manager, et notify of wish to fire patient. Called Zenaida Alejandre et notified via phone. Zenaida requested the pertinent information via email. Email sent. RATOR OPERATOR documented in this encounter Plan of Treatment Not on file documented as of this encounter Goals Goal Patient Goal Type Associated Problems Recent Progress Patient-Stated? Author Blood Pressure < 140/90 Blood Pressure 134/86(2022 2:25 PM CDT) No Leonard Jasso APRN documented as of this encounter Visit Diagnoses Not on filedocumented in this encounter Care Teams Bull Riveter Relationship Specialty Start Date End Date Coco Leos PA-C [address] [place] [address] PCP - General Physician Speech Scientist 10/25/17 11/24/18 Denny Dey DO [address] [place] [address] Referring Physician Orthopedic Surgery 06/28/18 9 Lacey Perdue MD [facility] [phone] Referring Physician Infectious Diseases 06/28/18 documented as of this encounter
--- OUTSIDE RECORDS SUMMARY | 2024-11-23 00:30 | XMS_ITS | Encounter Summary ---
Author Organization [employer] Address [address] [place] [address] Care Team Providers Care Automatic Transmission Mechanic Name Role Phone Coco Leos PA-C Primary Care Provider [phone] Denny Dey DO Unavailable [phone] Lacey Perdue MD Unavailable [phone] Encounter Details Date Type Department Care Team (Latest Contact Info) Description 11/11/2018 11:00 AM MATTE CUTTER - 11/11/2018 11:59 PM MATTE CUTTER Hospital Encounter [facility] [address] [place] [phone] Encounter for long-term (current) use of antibiotics; [...] of Assessment Author No 10/25/2017 2:00 PM MATTE CUTTER Galvan, Am y S, GASOLINE ENGINE ASSEMBLER * Do you have serious difficulty [...] Date/Time Associated Diagnosis Comments VANCOMYCIN, TROUGH Routine 11/11/2018 11 :00 AM MATTE CUTTER Encounter for long-term (current) use of antibiotics Primary localized osteoarthrosis BASIC METABOLIC PANEL Routine 11/11/2018 11:00 AM MATTE CUTTER Encounter for long-term (current) use of antibiotics Primary localized osteoarthrosis documented in this encounter Results * Vancomycin, trough (11/11/2018 11:00 AM MATTE CUTTER) Vancomycin Trough 7.1 5.0 - 10.0 mcg/mL 11/11/2018 12:42 PM MATTE CUTTER [facility] Serum specimen (specimen) 11/11/2018 11:00 AM MATTE CUTTER 11/11/2018 12:02 PM MATTE CUTTER us Lacey Perdue MD LAB BLOOD ORDERABLES Final R esult [facility] [address] [place], [place] * (ABNORMAL) Basic metabolic panel (11/11/2018 11:00 AM MATTE CUTTER) Sodium 137 136 - 145 mmol/L 11/11/2018 12:37 PM MATTE CUTTER [facility] [employer] Potassium 4.2 3.5 - 5.1 mmol/L 11/11/2018 12:37 PM [facility] [employer] Chloride 102 98 - 107 mmol/L 11/11/2018 12:37 PM [facility] CARTHAHost AnalyticsQUEST LAB CO2 26 21 - 32 mmol/L 11/11/2018 12:37 PM [facility] CARTBioStratum [facility] Glucose 162(H) 74 - 106 mg/dL 11/11/2018 12:37 PM [facility] CARTHAJuristat [facility] BUN 13 7.0 - 18.0 mg/dL 11/11/2018 12:37 PM [facility] C[employer]BioStrat[employer] [facility] Creatinine 0.93 0.70 - 1.30 mg/dL 11/11/2018 12:37 PM [facility] CARTVocentQUEST LAB Calcium 9.0 8.5 - 10.1 mg/dL 11/11/2018 12:37 PM [facility] [employer] Creatinine Based eGFR >60 11/11/2018 12:37 PM [facility] [employer] Comment: GFR REFERENCE RANGE: >60 mL/min/1.73m2 -- An eGFR of > than, or = to 60, may indicate normal renal function or mildly decreased GFR. EGFR /Karla n >60 11/11/2018 12:37 PM [facility] [employer] Comment: -- An eGFR of > than, or = to 60, may indicate normal renal function or mildly decreased GFR. Serum specimen (specimen) 11/11/2018 11:00 AM MATTE CUTTER 11/11/2018 12:02 PM [facility] us Lacey Perdue MD LAB BLOOD ORDERABLES Final R esult [facility] [employer] [address] [place], [place] documented in this encounter Visit Diagnoses Diagnosis Encounter for long-term (current) use of antibiotics Primary localized osteoarthrosis Primary localized osteoarthrosis, unspecified site documented in this encounter Care Teams Automatic Transmission Mechanic Relationship Specialty Start Date End Date Coco Leos PA-C [address] [place] [address] PCP - General Physician Sill Worker 10/25/17 11/24/18 Denny Dey DO [address] [address] Referring Physician Orthopedic Surgery 06/28/18 9 Lacey Perdue MD [address] [phone] Referring Physician Infectious Diseases 06/28/18 documented as of this encounter
--- OUTSIDE RECORDS SUMMARY | 2024-11-23 00:30 | XMS_ITS | Encounter Summary ---
Author Organization [employer] Address [address] [place] [address] Care Team Providers Care Russian Language Professor Name Role Phone Denny Dey DO Unavailable [phone] Lacey Perdue MD Unavailable Leonard Jasso APRN Primary Care Provide r Reason for Referral * Referral (Routine) - Closed Specialty Diagnoses / Procedures Referred By Celine almaguer Referred To Contact General Surgery Diagnoses Encounter for screening colonoscopy Leonard Jasso APRN [address] [place] [address] Phone: tel: fax: Siddhartha Loyd MD [address] [place] [address] [address] [place] [address] Phone: tel: fax: Referral ID Status Reason Start Date Expiration Date V isits Requested Visits Authorized [id number] Closed Specialty Services Required 11/25/2018 11/25/2019 1 1 LE AND VENT MACHINE OPERATOR Encounter Details Date Type Department Care Team (Late st Contact Info) Description 11/25/2018 Orders Only [address] [address] Brittany Clemons CMA [address] [facility] [address] [place] [address] Encounter for screening colonoscopy (Primary Dx) Social History Tobacco Use Types [...] Author No 10/25/2017 2:00 PM Deonna Padilla, CAR BODY DESIGNER * Are you blind or do you have serious difficulty seeing, even when wearing glasses? Answer Date of Assessment Author No 10/25/2017 2:00 PM Deonna Padilla S, CAR BODY DESIGNER * Do you have serious difficulty walking or climbing stairs? (5 years old or older) Answer Date of Assessment Author No 10/25/2017 2:00 PM Deonna Padilla S, CAR BODY DESIGNER * Do you have difficulty dressing or bathing? (5 years old or older) Answer Date of Assessment Author No 10/25/2017 2:00 PM Deonna Padilla S, CAR BODY DESIGNER * Because of a physical, mental, or emotional condition, do you have difficulty doing errands alone such as visiting a doctor's office or shopping? (15 years old or older) Answer Date of Assessment Author No 10/25/2017 2:00 PM Deonna Padilla S, CAR BODY DESIGNER documented as of this encounter Mental Status * Because of a physical, mental, or emotional condition, do you have serious difficulty concentrating, remembering, or making decisions? (5 years old or older) Answer Entry Date Author No 10/25/2017 2:00 PM Deonna Padilla S, CAR BODY DESIGNER documented in this encounter Plan of Treatment Scheduled Referrals Name Type Priority Associated Diagnoses Orde r Schedule Referral to General Surgery Outpatient Referral Routine Encounter for screening colonoscopy Ordered: 11/25/2018 documented as of this encounter Goals Goal Patient Goal Type Associated Problems Recent Progress Patient-Stated? Author Blood Pressure < 140/90 Blood Pressure 134/86(2022 2:25 PM CDT) No Leonard Jasso APRN documented as of this encounter Visit Diagnoses Diagnosis Encounter for screening colonoscopy- Primary Special screening for malignant neoplasms, colon documented in this encounter Care Teams Russian Language Professor Relationship Specialty Start Date End Date Leonard Jasso APRN [address] [place] [address] PCP - General Family Medicine 11/25/18 08/14/19 Denny Dey DO Referring Physician Orthopedic Surgery 06/28/18 9 Lacey Perdue MD [address] [phone] Referring Physician Infectious Diseases 06/28/18 documented as of this encounter
--- OUTSIDE RECORDS SUMMARY | 2024-11-23 00:30 | XMS_ITS | Encounter Summary ---
Author Organization [email or web address] Address [address] [place] [address] Care Team Providers Care Filter Press Tender Head Name Role Phone Coco Leos PA-C Primary Care Provider [phone] Denny Dey DO Unavailable [phone] Lacey Perdue MD Unavailable [phone] Reason for Visit * Reason Comments Follow-up 3 month follow up me d refill Encounter Details Date Type Department Care Team (Late st Contact Info) Description 11/02/2018 2:00 PM CAFETERIA ASSISTANT Office Visit [address] [id number] Leonard Jasso, SUPERVISOR BELT AND LINK ASSEMBLY [address] [place], [place] [address] Other chronic osteomyelitis of right ankle (Primary Dx); Other chronic osteomyelitis of right fibula; Chronic back pain greater than 3 months duration; Staphylococcal arthritis of right ankle (HCC) Social History Tobacco Use Types Packs/Day [...] Sign Reading Time Taken Comments Blood Pressure 110/70 11/02/2018 1:07 PM CAFETERIA ASSISTANT Pulse 109 11/02/2018 1:07 PM CAFETERIA ASSISTANT Temperature 36.6 ??C (97.9 ??F) 11/02/2018 1:07 PM CS T Respiratory Rate - - Oxygen Saturation 96% 11/02/2018 1:07 PM CAFETERIA ASSISTANT Inhaled Oxygen Concentration - - Weight 87.7 kg (193 lb 6.4 oz) 11/02/2018 1:07 P M CAFETERIA ASSISTANT Height 180.3 cm (5' 10.98 ) 11/02/2018 1:[address] Body Mass Index 26.99 11/02/2018 1:07 PM CAFETERIA ASSISTANT documented in this encounter Functional Status * [...] * Patient Instructions* Leonard Jasso APNP - 11/02/2018 2:00 PM CAFETERIA ASSISTANT Take medications exactly as prescribed. Warm moist [...] that is documented in the agreement. Follow the direction of the Infectious Disease Doctor exactly as you are suppose to. Be sure to keep all appointments and take all medications exactly as directed. It is up to you to be compliant with treatment. Follow up with me in one month. TERIA ASSISTANT TERIA ASSISTANT documented in this encounter Progress Notes * Leonard Jasso APNP - 11/02/2018 2:00 PM CST Chief Complaint Patient presents with ??? Follow-up 3 month follow up med refill Subjective: Patient ID: Edilberto Hawley is a 63 y.o. male. Due to right lower extremity ankle and fibula osteomyelitis pt has received 7 weeks of antibiotics by Infectious Disease, Dr. Perdue. According to infectious disease the amount of swelling in his right lower extremity seems to be the same and tenderness is the same. Inflammatory markers were drawn but were not very helpful to infectious disease because they were not significantly elevated to begin with before the antibiotic therapy was started. Infectious disease did order an MRI of the ankleto make sure they are not dealing with an abscess formation or any worsening of the osteomyelitis before they stop antibiotic treatment. Patient confirms with me today that it is scheduled for 11 November. Patient will continue with the ciprofloxacin 750 mg orally twice a day and he will continue vancomycin IV. Pharmacy is dosing the trough between 15 and 20. Apparently per infectious disease the vancomycin trough has been subtherapeutic for the last 2 weeks. The infusion company will be contacted byinfectious disease office because the vancomycin dosage might need to be increased for the above target trough. Patient is aware that some cases of osteomyelitis may need to be treated for a total of12 weeks. Patient is to follow-up with infectious disease in 2 weeks. Patient was argumentative at beginning of the visit today so we ended up getting some things out into the open between us. I was previously going to terminate the patient from the office due to he was very unhappy and saying bad things about our office at another facility. My front desk receptionist Yani happened to be working and that other facility the day the patient was complaining openly in the waiting room. Due to patient unhappiness with my clinic and be treating him and also inappropriate drug screens I had contacted Zenaida the clinical laboratory assistant and asked her to terminate the patient from my service. Of course I would have treated him for a month or so to make sure he found a provider that would accept him. After talking with the patient today I have decided to retract terminating him from my office with the understanding that he will follow my advice and the advice of the infectious disease physician perfectly. I have explained to him that due to the condition of his right ankle it could result in septicemia and or the possibility he could lose the lower part of his leg if he does not follow our advice perfectly. Patient became tearful and apologized for his previous behavior and agreed to follow all recommendations. During review of patient medications it came to light he was not taking a probiotic like he was supposed to so I clarified the dose with him. Take it 3 times a day. Patient is here today for refill of his pain medications. He states currently the chronic pain in his back and shoulder is controlled. He also states the pain in his right ankle is controlled on his current medication regimen. I again reviewed with the patient that he signed a pain contract with usand needs to follow the directions on his pain medications. I explained with his history of drug abuse I am worried he could get out of control with his pain medications and take too much. I again reviewed his past drug screens and the reason for my concern. Patient is well aware he is to take his medications only as prescribed and to not mix his medications with any street drugs or alcohol. He understands he could overdose and . History provided by: Patient Patient's problem list, medications, allergies, past medical, [...] Musculoskeletal: Positive for arthralgias and back pain. Chronic left shoulder pain. Skin: Positive for wound (Right lower extremity lateral malleous. 4cm wide 8cm long. Eschar tissue noted. No drainage. ). Negative for rash. Allergic/Immunologic: Negative for environmental allergies and food allergies. Neurological: Negative for dizziness, tremors, speech difficulty, weakness and headaches. Psychiatric/Behavioral: Negative for agitation and behavioral problems. All other systems reviewed and are negative. Objective: BP 110/70 (BP Location: [facility] [place], [place] Position: sitting, BP Cuff Size: Reg) Pulse 109 Temp 36.6 ??C (97.9 ??F) (Tympanic) Ht 1.803 m (5' 10.98 ) Wt 87.7 kg (193 lb 6.4 oz) SpO2 96% BMI 26.99 kg/m?? Body mass index is 26.99 kg/m??. Physical Exam Constitutional: He is oriented [...] exhibits no distension. There is no tenderness. Musculoskeletal: He exhibits edema ( Edema right lower extremity ankle/foot. ). Lymphadenopathy: He has no cervical adenopathy. Neurological: He is alert and oriented to person, place, and time. Skin: Skin is warm and dry. He is not diaphoretic. Wound right lower extremity/ankle with wound vac in place. Wound 4cm wide and 8cm long with black eschar tissue. Infection noted in bone as described in HPI. PICC line noted medial aspect of right distal bicep close to antecubital space. Psychiatric: He has a normal mood and affect. His behavior is normal. Nursing note and vitals reviewed. Assessment/Orders: Diagnoses and all orders for this visit: Other chronic osteomyelitis of right ankle (HCC) Other chronic osteomyelitis of right fibula (HCC) Chronic back pain greater than 3 months duration Staphylococcal arthritis of right ankle (HCC) Other orders - oxyCODONE-acetaminophen (PERCOCET) 10-325 MG per tablet; Take 1 tablet by mouth every 6 (six) hours as needed for Pain. - morphine (MS CONTIN) 30 MG extended release tablet; Take 1 tablet by mouth every 12 (twelve) hours. Plan: Take medications exactly as prescribed. Warm moist [...] that is documented in the agreement. Follow the direction of the Infectious Disease Doctor exactly as you are suppose to. Be sure to keep all appointments and take all medications exactly as directed. It is up to you to be compliant with treatment. Follow up with me in one month. TERIA ASSISTANT documented in this encounter Plan of Treatment Not on file documented as of this encounter Goals Goal Patient Goal Type Associated Problems Recent Progress Patient-Stated? Author Blood Pressure < 140/90 Blood Pressure 134/86(2022 2:25 PM CDT) No Leonard Jasso APRN documented as of this encounter Visit Diagnoses Diagnosis Other chronic osteomyelitis of right ankle- Primary Other chronic osteomyelitis of right fibula Chronic back pain greater than 3 months duration Backache, unspecified Staphylococcal arthritis of right ankle documented in this encounter Care Teams Filter Press Tender Head Relationship Specialty Start Date End Date Coco Leos PA-C [address] [place] [address] PCP - General Physician Analyst Business Analysis 10/25/17 11/24/18 Denny Dey DO [address] [place] [address] Referring Physician Orthopedic Surgery 06/28/18 9 Lacey Perdue MD [facility] [address] Referring Physician Infectious Diseases 06/28/18 documented as of this encounter
--- OUTSIDE RECORDS SUMMARY | 2024-11-23 00:30 | XMS_ITS | Encounter Summary ---
Author Organization [facility] Address [address] [place] [address] Care Team Providers Care Sprayer Insecticide Name Role Phone Coco Leos PA-C Primary Care Provider [phone] Denny Dey DO Unavailable [phone] Lacey Perdue MD Unavailable [phone] Reason for Visit * Reason Onset Date Comments Infectious disease doctor ordered meds 8 Encounter Details Date Type Department Care Team (Late st Contact Info) Description 10/04/[address] [address] Yael Sim, CIRCUIT BOARD INSPECTOR [address] [facility] [address] [place] [address] Infectious disease doctor ordered meds Social History Tobacco Use Types Packs/Day Years [...] of Assessment Author No 10/25/2017 2:00 PM FLAVORING MACHINE OPERATOR Deonna Galvan, ALIGNER * Do you have serious difficulty walking or climbing stairs? (5 years old or older) Answer Date of Assessment Author No 10/25/2017 2:00 PM Deonna Padilla, ALIGNER * Do you have difficulty dressing or bathing? (5 years old or older) Answer Date of Assessment Author No 10/25/2017 2:00 PM Deonna Padilla, ALIGNER * Because of a physical, mental, or [...] Notes * Telephone Encounter - Yael Sim LPN - 10/04/2018 2:03 PM FLAVORING MACHINE OPERATOR Pt called to report the ATB's that the infectious disease doctor has scripted for pt. Pt sts that he does not believe that his leg is getting any better. 1,500mg fresenius every 12 hours original order. Now to take one tab every 8 hours. Ciprofloxacin 750mg one tab every 12 hours. Called [facility] Ojeda for clarification. Dr. Perdue sts that pt missed appt today et that they called to reschedule appt. Pt was not told to contact pcp with medication update. Dr Perdue sts that ptis on IV vancomycin mixed per pharmacy, cipro 750 mg twice daily, et a probiotic blend with acidophilus. ORING MACHINE OPERATOR documented in this encounter Plan of Treatment Not on file documented as of this encounter Goals Goal Patient Goal Type Associated Problems Recent Progress Patient-Stated? Author Blood Pressure < 140/90 Blood Pressure 134/86(2022 2:25 PM CDT) No Wasielewski, Elonard W, NEPHROLOGIST documented as of this encounter Visit Diagnoses Not on filedocumented in this encounter Care Teams Sprayer Insecticide Relationship Specialty Start Date End Date Coco Leos PA-C [address] [place] [address] PCP - General Physician Packaging Operator 10/25/17 11/24/18 Denny Dey DO [address] [place] [address] Referring Physician Orthopedic Surgery 06/28/18 9 Lacey Perdue MD [address] [phone] Referring Physician Infectious Diseases 06/28/18 documented as of this encounter
--- OUTSIDE RECORDS SUMMARY | 2024-11-23 00:30 | XMS_ITS | Encounter Summary ---
Author Organization [facility] Address [address] [place] [address] Care Team Providers Care Pencil Inspector Name Role Phone RobertbetoTatianae Katt WISE Primary Care Provider [phone] Denny Dey DO Unavailable [phone] Lacey Perdue MD Unavailable [phone] Leonard Jasso APRN Primary Care Provide r Reason for Visit * Reason Comments Medication Refill Encounter Details Date Type Department Care Team (Late st Contact Info) Description 11/03/[address] [address] Leonard Jasso APRN [address] [place] [address] Social History Tobacco Use Types Packs/Day [...] of Assessment Author No 10/25/2017 2:00 PM LEGAL ASSISTANT Deonna Galvan, GEORGE * Are you blind or do you have serious difficulty seeing, even when wearing glasses? Answer Date of Assessment Author No 10/25/2017 2:00 PM Deonna Padilla S, COMPUTER ENGINEERING TECHNOLOGIST * Do you have serious difficulty walking or climbing stairs? (5 years old or older) Answer Date of Assessment Author No 10/25/2017 2:00 PM JOHN Galvan Am y S, COMPUTER ENGINEERING TECHNOLOGIST * Do you have difficulty dressing or bathing? (5 years old or older) Answer Date of Assessment Author No 10/25/2017 2:00 PM Deonna Padilla S, COMPUTER ENGINEERING TECHNOLOGIST * Because of a physical, mental, or emotional condition, do you have difficulty doing errands alone such as visiting a doctor's office or shopping? (15 years old or older) Answer Date of Assessment Author No 10/25/2017 2:00 PM Deonna Padilla, COMPUTER ENGINEERING TECHNOLOGIST documented as of this encounter Mental Status * Because of a physical, mental, or emotional condition, do you have serious difficulty concentrating, remembering, or making decisions? (5 years old or older) Answer Entry Date Author No 10/25/2017 2:00 PM Deonna Padilla, COMPUTER ENGINEERING TECHNOLOGIST documented in this encounter Plan of Treatment Not on file documented as of this encounter Goals Goal Patient Goal Type Associated Problems Recent Progress Patient-Stated? Author Blood Pressure < 140/90 Blood Pressure 134/86(2022 2:25 PM CDT) No Leonard Jasso APRN documented as of this encounter Visit Diagnoses Not on filedocumented in this encounter Care Teams Pencil Inspector Relationship Specialty Start Date End Date Coco Leos PA-C [address] [place] [address] PCP - General Physician Game Engineer 10/25/17 11/24/18 Leonard Jasso APRN [address] [place] [address] PCP - General Family Medicine 11/25/18 08/14/19 Denny Dey DO [address] [place], [place] [address] Referring Physician Orthopedic Surgery 06/28/18 9 Lacey Perdue MD [facility] [phone] Referring Physician Infectious Diseases 06/28/18 documented as of this encounter
--- OUTSIDE RECORDS SUMMARY | 2024-11-23 00:30 | XMS_ITS | Encounter Summary ---
Author Organization [facility] Address [address] [place] [address] Care Team Providers Care Assistant Producer Name Role Phone Coco Leos PA-C Primary Care Provider [phone] Denny Dey DO Unavailable [phone] Lacey Perdue MD Unavailable [phone] Encounter Details Date Type Department Care Team (Latest Contact Info) Description 10/15/2018 7:00 AM WAX BLEACHER - 10/15/2018 11:59 PM WAX BLEACHER Hospital Encounter [facility] [address] [place] [phone] Encounter for long-term (current) use of antibiotics; [...] of Assessment Author No 10/25/2017 2:00 PM WAX BLEACHER Galvan, Am y S, FARM MECHANIC * Do you have serious difficulty [...] Date/Time Associated Diagnosis Comments VANCOMYCIN, TROUGH Routine 10/15/2018 7: 00 AM WAX BLEACHER Encounter for long-term (current) use of antibiotics Primary localized osteoarthrosis BASIC METABOLIC PANEL Routine 10/15/2018 7:00 AM WAX BLEACHER Encounter for long-term (current) use of antibiotics Primary localized osteoarthrosis documented in this encounter Results * (ABNORMAL) Vancomycin, trough (10/15/2018 7:00 AM WAX BLEACHER) Vancomycin Trough 20.4(H) 5.0 - 10.0 mcg/mL [facility] Blood specimen (specimen) 10/15/2018 7:00 AM WAX BLEACHER 10/15/2018 7:57 AM WAX BLEACHER us Lacey Perdue MD LAB BLOOD ORDERABLES Final R esult [facility] [address] [place] [address] * (ABNORMAL) Basic metabolic panel (10/15/2018 7:00 AM WAX BLEACHER) Sodium 142 136 - 145 mmol/L [facility] Potassium 3.9 3.5 - 5.1 mmol/L [facility] Chloride 102 98 - 107 mmol/L [facility] CO2 29 21 - 32 mmol/L [facility] Glucose 121(H) 74 - 106 mg/dL [facility] BUN 12 7.0 - 18.0 mg/dL [facility] Creatinine 0.95 0.70 - 1.30 mg/dL [facility] Calcium 9.7 8.5 - 10.1 mg/dL [facility] Creatinine Based eGFR >60 [facility] Comment: GFR REFERENCE RANGE: >60 mL/min/1.73m2 -- An eGFR of > than, or = to 60, may indicate normal renal function or mildly decreased GFR. EGFR /Karla n >60 [facility] Comment: -- An eGFR of > than, or = to 60, may indicate normal renal function or mildly decreased GFR. Blood specimen (specimen) 10/15/2018 7:00 AM WAX BLEACHER 10/15/2018 7:57 AM WAX BLEACHER us Lacey Perdue MD LAB BLOOD ORDERABLES Final R esult [facility] [address] [facility] [place] documented in this encounter Visit Diagnoses Diagnosis Encounter for long-term (current) use of antibiotics Primary localized osteoarthrosis Primary localized osteoarthrosis, unspecified site documented in this encounter Care Teams Assistant Producer Relationship Specialty Start Date End Date Coco Leos PA-C [address] [place] [address] PCP - General Physician Knockup Worker 10/25/17 11/24/18 Denny Dey DO [address] [place] [address] Referring Physician Orthopedic Surgery 06/28/18 9 Lacey Perdue MD [facility] [phone] Referring Physician Infectious Diseases 06/28/18 documented as of this encounter
--- OUTSIDE RECORDS SUMMARY | 2024-11-23 00:30 | XMS_ITS | Encounter Summary ---
Author Organization [facility] Address [address] [place] [address] Care Team Providers Care Silver Miner Blasting Name Role Phone Tatiana Leose Katt WISE Primary Care Provider [phone] Denny Dey DO Unavailable [phone] Lacey Perdue MD Unavailable [phone] Leonard Jasso APRN Primary Care Provide r Encounter Details Date Type Department Care Team (Late st Contact Info) Description 11/04/2018 Orders Only [address] [address] Leonard Jasso APRN [facility] [place] [address] Social History Tobacco Use Types [...] of Assessment Author No 10/25/2017 2:00 PM MANAGER ACTION Deonna Galvan, GEORGE * Are you blind or do you have serious difficulty seeing, even when wearing glasses? Answer Date of Assessment Author No 10/25/2017 2:00 PM Deonna Padilla S, GOLF COURSE RANGER * Do you have serious difficulty walking or climbing stairs? (5 years old or older) Answer Date of Assessment Author No 10/25/2017 2:00 PM Deonna Padilla S, GOLF COURSE RANGER * Do you have difficulty dressing or bathing? (5 years old or older) Answer Date of Assessment Author No 10/25/2017 2:00 PM Deonna Padilla, GOLF COURSE RANGER * Because of a physical, mental, or emotional condition, do you have difficulty doing errands alone such as visiting a doctor's office or shopping? (15 years old or older) Answer Date of Assessment Author No 10/25/2017 2:00 PM Deonna Padilla, GOLF COURSE RANGER documented as of this encounter Mental Status * Because of a physical, mental, or emotional condition, do you have serious difficulty concentrating, remembering, or making decisions? (5 years old or older) Answer Entry Date Author No 10/25/2017 2:00 PM Deonna Padilla, GOLF COURSE RANGER documented in this encounter Plan of Treatment Not on file documented as of this encounter Goals Goal Patient Goal Type Associated Problems Recent Progress Patient-Stated? Author Blood Pressure < 140/90 Blood Pressure 134/86(2022 2:25 PM CDT) No Leonard Jasso APRN documented as of this encounter Visit Diagnoses Not on filedocumented in this encounter Care Teams Silver Miner Blasting Relationship Specialty Start Date End Date Coco Leos PA-C [address] [place] [address] PCP - General Physician Machine Cloth Examiner 10/25/17 11/24/18 Leonard Jasso APRN [address] [place] [address] PCP - General Family Medicine 11/25/18 08/14/19 Denny Dey DO [address] [place] [address] Referring Physician Orthopedic Surgery 06/28/18 9 Lacey Perdue MD [address] [phone] Referring Physician Infectious Diseases 06/28/18 documented as of this encounter
--- OUTSIDE RECORDS SUMMARY | 2024-11-23 00:30 | XMS_ITS | Encounter Summary ---
Author Organization [employer] Address [address] [place] [address] Care Team Providers Care Inker Machine Name Role Phone RobertbeotGraceCoco Katt WISE Primary Care Provider [phone] Denny Dey DO Unavailable [phone] Lacey Perdue MD Unavailable Encounter Details Date Type Department Care Team (Latest Contact Info) Description 10/07/2018 Transcribe Orders [facility] [address] [place] [address] Lacey Perdue MD [address] [phone] Encounter for long-term (current) use [...] of Assessment Author No 10/25/2017 2:00 PM WATERSHED TENDER Deonna Galvan, GEORGE * Are you blind [...] as of this encounter Results * (ABNORMAL) Basic metabolic panel (10/07/2018 9:00 AM WATERSHED TENDER) Sodium 138 136 - 145 mmol/L [facility] Potassium 4.2 3.5 - 5.1 mmol/L [facility] Chloride 104 98 - 107 mmol/L [facility] CO2 27 21 - 32 mmol/L [facility] Glucose 108(H) 74 - 106 mg/dL [facility] BUN 14 7.0 - 18.0 mg/dL [facility] Creatinine 0.98 0.70 - 1.30 mg/dL [facility] [employer] [facility] Calcium 8.9 8.5 - 10.1 mg/dL [facility] [employer] [facility] Creatinine Based eGFR >60 [facility] Comment: GFR REFERENCE RANGE: >60 mL/min/1.73m2 -- An eGFR of > than, or = to 60, may indicate normal renal function or mildly decreased GFR. EGFR /Karla n >60 [facility] Comment: -- An eGFR of > than, or = to 60, may indicate normal renal function or mildly decreased GFR. Blood specimen (specimen) 10/07/2018 9:00 AM WATERSHED TENDER 10/07/2018 9:51 AM WATERSHED TENDER Lacey Perdue MD LAB BLOOD ORDERABLES Final R esult [facility] [address] [place] [address] * (ABNORMAL) Vancomycin, trough (10/07/2018 9:00 AM WATERSHED TENDER) Vancomycin Trough 19.9(H) 5.0 - 10.0 mcg/mL [facility] Blood specimen (specimen) 10/07/2018 9:00 AM WATERSHED TENDER 10/07/2018 9:51 AM WATERSHED TENDER us Lacey Perdue MD LAB BLOOD ORDERABLES Final R esult [facility] [address] [place] [address] documented in this encounter Visit Diagnoses Diagnosis Encounter for long-term (current) use of antibiotics- Primary Primary localized osteoarthrosis Primary localized osteoarthrosis, unspecified site documented in this encounter Care Teams Inker Machine Relationship Specialty Start Date End Date Coco Leos PA-C [address] [place] [address] PCP - General Physician Aircraft Electrician 10/25/17 11/24/18 Denny Dey DO [address] [place] [address] Referring Physician Orthopedic Surgery 06/28/18 9 Lacey Perdue MD [address] [phone] Referring Physician Infectious Diseases 06/28/18 documented as of this encounter
--- OUTSIDE RECORDS SUMMARY | 2024-11-23 00:30 | XMS_ITS | Encounter Summary ---
Author Organization [employer] Address [address] [place] [address] Care Team Providers Care Supervisor Harvesting Name Role Phone Coco Leos PA-C Primary Care Provider [phone] Denny Dey DO Unavailable Lacey Perdue MD Unavailable [phone] Encounter Details Date Type Department Care Team (Latest Contact Info) Description 10/24/2018 12:45 PM SHUTDOWN PLANNER - 10/24/2018 11:59 PM SHUTDOWN PLANNER Hospital Encounter [facility] [address] [place] [phone] Encounter for long-term (current) use of antibiotics; [...] of Assessment Author No 10/25/2017 2:00 PM SHUTDOWN PLANNER Galvan, Am y S, DRINK BOX MECHANIC * Do you have serious difficulty [...] Date/Time Associated Diagnosis Comments SEDIMENTATION RATE Routine 10/24/2018 12 :15 PM SHUTDOWN PLANNER Encounter for long-term (current) use of antibiotics Primary localized osteoarthrosis CBC AND DIFFERENTIAL Routine 10/24/2018 12:15 PM SHUTDOWN PLANNER Encounter for long-term (current) use of antibiotics Primary localized osteoarthrosis C-REACTIVE PROTEIN Routine 10/24/2018 12 :15 PM SHUTDOWN PLANNER Encounter for long-term (current) use of antibiotics Primary localized osteoarthrosis VANCOMYCIN, TROUGH Routine 10/24/2018 12 :15 PM SHUTDOWN PLANNER Encounter for long-term (current) use of antibiotics Primary localized osteoarthrosis COMPREHENSIVE METABOLIC PANEL Routine 10/24/2018 12:15 PM SHUTDOWN PLANNER Encounter for long-term (current) use of antibiotics Primary localized osteoarthrosis documented in this encounter Results * Vancomycin, trough (10/24/2018 12:15 PM SHUTDOWN PLANNER) Vancomycin Trough 5.3 5.0 - 10.0 mcg/mL 10/24/2018 3:23 PM SHUTDOWN PLANNER [facility] [employer] [facility] Serum specimen (specimen) 10/24/2018 12:15 PM SHUTDOWN PLANNER 10/24/2018 1:47 PM SHUTDOWN PLANNER us Lacey Perdue MD LAB BLOOD ORDERABLES Final R esult [facility] [employer] [facility] [address] [place], [place] * (ABNORMAL) Sedimentation rate (10/24/2018 12:15 PM SHUTDOWN PLANNER) Sedimentation Rate 32(H) 0 - 20 mm/hr 10/24/2018 6:06 PM [facility] Whole blood specimen (specimen) 10/24/2018 12:15 PM SHUTDOWN PLANNER 10/24/2018 1:47 PM SHUTDOWN PLANNER us Lacey Perdue MD LAB BLOOD ORDERABLES Final R esult [facility] [employer] [facility] [address] [place] * (ABNORMAL) CBC and differential (10/24/2018 12:15 PM SHUTDOWN PLANNER) WBC 6.80 4.00 - 11.00 th/mm3 10/24/2018 2:39 PM [facility] [employer] [facility] RBC 5.27 4.50 - 6.50 mill/mm3 10/24/2018 2:39 PM [facility] [employer] [facility] HGB 15.3 13.8 - 18.0 g/dL 10/24/2018 2:39 PM [facility] [employer] [facility] HCT 46.2 40.0 - 54.0 % 10/24/2018 2:39 PM [facility] [employer] [facility] MCV 87.7 76 - 99 fL 10/24/2018 2:39 PM [facility] [employer] [facility] MCH 29.0 27.0 - 32.0 pg 10/24/2018 2:39 PM [facility] [employer] [facility] MCHC 33.1 30.0 - 35.0 g/dL 10/24/2018 2:39 PM [facility] Platelets 192 135 - 470 th/mm3 10/24/2018 2:39 PM [facility] [employer] [facility] RDW 12.7 11.0 - 17.0 % 10/24/2018 2:39 PM [facility] [employer] [facility] MPV 9.9 8.0 - 12.5 fL 10/24/2018 2:39 PM [facility] Differential Type AUTOMATED DIFFERENTIAL 10/24/2018 2:39 PM [facility] [employer] [facility] Neutrophil % 52.7 45.0 - 75.0 % 10/24/2018 2:39 PM [facility] Lymphocytes % 29.6 20.0 - 45.0 % 10/24/2018 2:39 PM [facility] Monocyte % 11.9(H) 0.0 - 10.0 % 10/24/2018 2:39 PM [facility] Eosinophils Relative % 5.1(H) 0.0 - 5.0 % 10/24/2018 2:39 PM [facility] Basophils % 0.6 0.0 - 2.0 % 10/24/2018 2:39 PM [facility] [employer] [facility] Immature Granulocytes% 0.1 0.0 - 1.6 % 10/24/2018 2:39 PM [facility] Neutrophils Absolute 3.58 2.00 - 7.90 th/mm3 10/24/2018 2:39 PM [facility] Lymphocytes Absolute 2.01 1.00 - 4.00 th/mm3 10/24/2018 2:39 PM [facility] [employer] [facility] Monos Absolute 0.81(H) 0.00 - 0.80 th/mm3 10/24/2018 2:39 PM [facility] Eosinophils Absolute Count 0.35 0.00 - 0.40 th/mm3 10/24/2018 2:39 PM [facility] [employer] [facility] Basophils Absolute 0.04 0.00 - 0.10 th/mm3 10/24/2018 2:39 PM [facility] [employer] [facility] Immature Granulocytes Absolute 0.01 0.0 - 0.20 th/mm3 10/24/2018 2:39 PM [facility] Serum specimen (specimen) BLOOD SPECIMEN / Unknown 10/24/2018 12:15 PM SHUTDOWN PLANNER 10/24/2018 1:47 PM SHUTDOWN PLANNER us Lacey Perdue MD LAB BLOOD ORDERABLES Final R esult [facility] [address] [place] * (ABNORMAL) Comprehensive metabolic panel (10/24/2018 12:15 PM [facility]) Sodium 139 136 - 145 mmol/L 10/24/2018 3:23 PM [facility] Potassium 4.1 3.5 - 5.1 mmol/L 10/24/2018 3:23 PM [facility] Chloride 100 98 - 107 mmol/L 10/24/2018 3:23 PM [facility] CO2 28 21 - 32 mmol/L 10/24/2018 3:23 PM [facility] Glucose 109(H) 74 - 106 mg/dL 10/24/2018 3:23 PM [facility] BUN 10 7.0 - 18.0 mg/dL 10/24/2018 3:23 PM [facility] Creatinine 0.98 0.70 - 1.30 mg/dL 10/24/2018 3:23 PM [facility] Calcium 9.6 8.5 - 10.1 mg/dL 10/24/2018 3:23 PM [facility] Total Protein 7.3 6.4 - 8.2 g/dL 10/24/2018 3:23 PM [facility] Albumin 4.2 3.4 - 5.0 g/dL 10/24/2018 3:23 PM [facility] Bilirubin Total 0.5 0.2 - 1.0 mg/dL 10/24/2018 3:23 PM [facility] Alkaline Phosphatase 99 56 - 119 U/L 10/24/2018 3:23 PM [facility] AST 39(H) 15 - 37 U/L 10/24/2018 3:23 PM [facility] ALT 60 12 - 78 U/L 10/24/2018 3:23 PM [facility] [employer] [facility] Creatinine Based eGFR >60 10/24/2018 3:23 PM SHUTDOWN PLANNER [facility] [employer] [facility] Comment: GFR REFERENCE RANGE: >60 mL/min/1.73m2 -- An eGFR of > than, or = to 60, may indicate normal renal function or mildly decreased GFR. EGFR /Chilean >60 10/24/2018 3:23 PM SHUTDOWN PLANNER [facility] Comment: -- An eGFR of > than, or = to 60, may indicate normal renal function or mildly decreased GFR. Serum specimen (specimen) 10/24/2018 12:15 PM SHUTDOWN PLANNER 10/24/2018 1:47 PM SHUTDOWN PLANNER us Lacey Perdue MD LAB BLOOD ORDERABLES Final R esult [facility] [employer] [facility] [address] [place] [address] * (ABNORMAL) C-reactive protein (10/24/2018 12:15 PM SHUTDOWN PLANNER) CRP 2.20(H) 0.2 - 0.9 mg/dL 10/24/2018 3:23 PM SHUTDOWN PLANNER [facility] [employer] [facility] Serum specimen (specimen) 10/24/2018 12:15 PM SHUTDOWN PLANNER 10/24/2018 1:47 PM SHUTDOWN PLANNER us Lacey Perdue MD LAB BLOOD ORDERABLES Final R esult [facility] [employer] [facility] [facility] [address] [place] [address] documented in this encounter Visit Diagnoses Diagnosis Encounter for long-term (current) use of antibiotics Primary localized osteoarthrosis Primary localized osteoarthrosis, unspecified site documented in this encounter Care Teams Supervisor Harvesting Relationship Specialty Start Date End Date Coco Leos PA-C [address] [place] [address] PCP - General Physician Formal Wear Rental Clerk 10/25/17 11/24/18 Denny Dey DO [address] [place] [address] Referring Physician Orthopedic Surgery 06/28/18 9 Lacey Perdue MD [address] [phone] Referring Physician Infectious Diseases 06/28/18 documented as of this encounter
--- OUTSIDE RECORDS SUMMARY | 2024-11-23 00:30 | XMS_ITS | Encounter Summary ---
Author Organization [employer] Address [address] [place] [address] Care Team Providers Care Slack Cooper Name Role Phone RobertbetoGraceCooc Katt WISE Primary Care Provider [phone] Denny Dey DO Unavailable [phone] Lacey Perdue MD Unavailable [phone] Encounter Details Date Type Department Care Team (Latest Contact Info) Description 10/03/2018 Transcribe Orders [facility] [address] [place] [address] Lacey Perdue MD [address] [phone] Encounter for long-term (current) use [...] of Assessment Author No 10/25/2017 2:00 PM DIGITAL ACCOUNT MANAGER Deonna Galvan, GEORGE * Are you blind [...] of this encounter Results * Vancomycin, trough (10/03/2018 12:30 PM DIGITAL ACCOUNT MANAGER) Pathologist [facility] Vancomycin Trough 9.4 5.0 - 10.0 mcg/mL [email or web address] Blood specimen (specimen) 10/03/2018 12:30 PM DIGITAL ACCOUNT MANAGER 10/03/2018 2:14 PM DIGITAL ACCOUNT MANAGER us Lacey Perdue MD LAB BLOOD ORDERABLES Final R esult [email or web address] [address] [place], [place] [phone] * (ABNORMAL) Sedimentation rate (10/03/2018 12:30 PM DIGITAL ACCOUNT MANAGER) Sedimentation Rate 25(H) 0 - 20 mm/hr [facility] Blood specimen (specimen) 10/03/2018 12:30 PM DIGITAL ACCOUNT MANAGER 10/03/2018 2:14 PM DIGITAL ACCOUNT MANAGER us Lacey Perdue MD LAB BLOOD ORDERABLES Final R esult [facility] [address] [place], [place] [phone] * (ABNORMAL) Comprehensive metabolic panel (10/03/2018 12:30 PM DIGITAL ACCOUNT MANAGER) Sodium 139 136 - 145 mmol/L [facility] Potassium 3.8 3.5 - 5.1 mmol/L [facility] Chloride 103 98 - 107 mmol/L [facility] CO2 24 21 - 32 mmol/L [facility] Glucose 127(H) 74 - 106 mg/dL [facility] [employer] BUN 10 7.0 - 18.0 mg/dL [facility] [employer] [facility] Creatinine 1.07 0.70 - 1.30 mg/dL [facility] Calcium 8.6 8.5 - 10.1 mg/dL [facility] [employer] Total Protein 7.2 6.4 - 8.2 g/dL [facility] Albumin 3.8 3.4 - 5.0 g/dL [facility] [employer] Bilirubin Total 0.5 0.2 - 1.0 mg/dL [facility] Alkaline Phosphatase 100 56 - 119 U/L [facility] AST 54(H) 15 - 37 U/L [facility] ALT 77 12 - 78 U/L [facility] Creatinine Based eGFR >60 [facility] [email or web address] Comment: GFR REFERENCE RANGE: >60 mL/min/1.73m2 -- An eGFR of > than, or = to 60, may indicate normal renal function or mildly decreased GFR. EGFR /Chinese >60 [facility] Comment: -- An eGFR of > than, or = to 60, may indicate normal renal function or mildly decreased GFR. Blood specimen (specimen) 10/03/2018 12:30 PM DIGITAL ACCOUNT MANAGER 10/03/2018 2:14 PM DIGITAL ACCOUNT MANAGER us Lacey Perdue MD LAB BLOOD ORDERABLES Final R esult [facility] [employer] [facility] [address] [place], [place] [phone] * CBC and differential (10/03/2018 12:30 PM DIGITAL ACCOUNT MANAGER) WBC 7.73 4.00 - 11.00 th/mm3 [facility] RBC 5.24 4.50 - 6.50 mill/mm3 [facility] HGB 15.5 13.8 - 18.0 g/dL [facility] HCT 46.2 40.0 - 54.0 % [facility] MCV 88.2 76 - 99 fL [facility] MCH 29.6 27.0 - 32.0 pg [facility] MCHC 33.5 30.0 - 35.0 g/dL [facility] Platelets 195 135 - 470 th/mm3 [facility] RDW 13.5 11.0 - 17.0 % [facility] MPV 9.8 8.0 - 12.5 fL [facility] Differential Type AUTOMATED DIFFERENTIAL [facility] Neutrophil % 55.2 45.0 - 75.0 % [facility] Lymphocytes % 30.3 20.0 - 45.0 % [facility] Monocyte % 9.7 0.0 - 10.0 % [facility] Eosinophils Relative % 4.1 0.0 - 5.0 % [facility] Basophils % 0.4 0.0 - 2.0 % [facility] Immature Granulocytes% 0.3 0.0 - 1.6 % [facility] Neutrophils Absolute 4.27 2.00 - 7.900 th/mm3 [facility] Lymphocytes Absolute 2.34 1.00 - 4.00 th/mm3 [facility] Monos Absolute 0.75 0.0 - 0.80 th/mm3 [facility] Eosinophils Absolute Count 0.32 0.00 - 0.40 th/mm3 [facility] Basophils Absolute 0.03 0.00 - 0.10 th/mm3 [facility] Immature Granulocytes Absolute 0.02 0.0 - 0.20 th/mm3 [facility] [employer] [facility] Blood specimen (specimen) BLOOD SPECIMEN / Unknown 10/03/2018 12:30 PM DIGITAL ACCOUNT MANAGER 10/03/2018 2:14 PM DIGITAL ACCOUNT MANAGER us Lacey Perdue MD LAB BLOOD ORDERABLES Edited Result - Final [email or web address] [address] [place], [place] [phone] * (ABNORMAL) C-reactive protein (10/03/2018 12:30 PM DIGITAL ACCOUNT MANAGER) CRP <0.20(L) 0.2 - 0.9 mg/dL [facility] [employer] Blood specimen (specimen) 10/03/2018 12:30 PM DIGITAL ACCOUNT MANAGER 10/03/2018 2:14 PM DIGITAL ACCOUNT MANAGER us Lacey Perdue MD LAB BLOOD ORDERABLES Final R esult [email or web address] [address] [place], [place] [phone] documented in this encounter Visit Diagnoses Diagnosis Encounter for long-term (current) use of antibiotics- Primary Primary localized osteoarthrosis Primary localized osteoarthrosis, unspecified site documented in this encounter Care Teams Slack Cooper Relationship Specialty Start Date End Date Coco Leos PA-C [address] [place] [address] PCP - General Physician Pharmacist [place] 10/25/17 11/24/18 Denny Dey DO [address] [place] [address] Referring Physician Orthopedic Surgery 06/28/18 9 Lacey Perdue MD [address] [phone] Referring Physician Infectious Diseases 06/28/18 documented as of this encounter
--- OUTSIDE RECORDS SUMMARY | 2024-11-23 00:30 | XMS_ITS | Encounter Summary ---
Author Organization [facility] Address [address] [place] [address] Care Team Providers Care Industrial Sales Representative Name Role Phone RobertbetoGraceCoco Katt WISE Primary Care Provider [phone] Denny Dey DO Unavailable [phone] Lacey Perdue MD Unavailable Encounter Details Date Type Department Care Team (Latest Contact Info) Description 10/24/2018 Transcribe Orders [facility] [address] [place] [address] Lacey Perdue MD [address] [address] Encounter for long-term (current) use [...] Assessment Author No 10/25/2017 2:00 PM SENIOR UI SOFTWARE ENGINEER Deonna Galvan, GEORGE * Are you blind [...] of this encounter Results * Vancomycin, trough (10/24/2018 12:15 PM SENIOR UI SOFTWARE ENGINEER) Vancomycin Trough 5.3 5.0 - 10.0 mcg/mL 10/24/2018 3:23 PM SENIOR UI SOFTWARE ENGINEER [facility] Serum specimen (specimen) 10/24/2018 12:15 PM SENIOR UI SOFTWARE ENGINEER 10/24/2018 1:47 PM SENIOR UI SOFTWARE ENGINEER us Lacey Perdue MD LAB BLOOD ORDERABLES Final R esult [facility] [address] [place] * (ABNORMAL) Sedimentation rate (10/24/2018 12:15 PM SENIOR UI SOFTWARE ENGINEER) Sedimentation Rate 32(H) 0 - 20 mm/hr 10/24/2018 6:06 PM SENIOR UI SOFTWARE ENGINEER [facility] Whole blood specimen (specimen) 10/24/2018 12:15 PM SENIOR UI SOFTWARE ENGINEER 10/24/2018 1:47 PM SENIOR UI SOFTWARE ENGINEER us Lacey Perdue MD LAB BLOOD ORDERABLES Final R esult [facility] [address] [place] * (ABNORMAL) CBC and differential (10/24/2018 12:15 PM SENIOR UI SOFTWARE ENGINEER) WBC 6.80 4.00 - 11.00 th/mm3 10/24/2018 2:39 PM [facility] RBC 5.27 4.50 - 6.50 mill/mm3 10/24/2018 2:39 PM [facility] HGB 15.3 13.8 - 18.0 g/dL 10/24/2018 2:39 PM [facility] HCT 46.2 40.0 - 54.0 % 10/24/2018 2:39 PM [facility] MCV 87.7 76 - 99 fL 10/24/2018 2:39 PM [facility] MCH 29.0 27.0 - 32.0 pg 10/24/2018 2:39 PM [facility] MCHC 33.1 30.0 - 35.0 g/dL 10/24/2018 2:39 PM [facility] Platelets 192 135 - 470 th/mm3 10/24/2018 2:39 PM [facility] RDW 12.7 11.0 - 17.0 % 10/24/2018 2:39 PM [facility] MPV 9.9 8.0 - 12.5 fL 10/24/2018 2:39 PM [facility] Differential Type AUTOMATED DIFFERENTIAL 10/24/2018 2:39 PM [facility] Neutrophil % 52.7 45.0 - 75.0 % 10/24/2018 2:39 PM [facility] Lymphocytes % 29.6 20.0 - 45.0 % 10/24/2018 2:39 PM [facility] Monocyte % 11.9(H) 0.0 - 10.0 % 10/24/2018 2:39 PM [facility] Eosinophils Relative % 5.1(H) 0.0 - 5.0 % 10/24/2018 2:39 PM [facility] Basophils % 0.6 0.0 - 2.0 % 10/24/2018 2:39 PM [facility] Immature Granulocytes% 0.1 0.0 - 1.6 % 10/24/2018 2:39 PM [facility] Neutrophils Absolute 3.58 2.00 - 7.90 th/mm3 10/24/2018 2:39 PM [facility] Lymphocytes Absolute 2.01 1.00 - 4.00 th/mm3 10/24/2018 2:39 PM [facility] Monos Absolute 0.81(H) 0.00 - 0.80 th/mm3 10/24/2018 2:39 PM [facility] Eosinophils Absolute Count 0.35 0.00 - 0.40 th/mm3 10/24/2018 2:39 PM [facility] Basophils Absolute 0.04 0.00 - 0.10 th/mm3 10/24/2018 2:39 PM [facility] Immature Granulocytes Absolute 0.01 0.0 - 0.20 th/mm3 10/24/2018 2:39 PM [facility] Serum specimen (specimen) BLOOD SPECIMEN / Unknown 10/24/2018 12:15 PM SENIOR UI SOFTWARE ENGINEER 10/24/2018 1:47 PM [facility] Lacey Perdue MD LAB BLOOD ORDERABLES Final R esult [facility] [address] [place], [place] * (ABNORMAL) Comprehensive metabolic panel (10/24/2018 12:15 PM [facility]) Sodium 139 136 - 145 mmol/L 10/24/2018 3:23 PM [facility] Potassium 4.1 3.5 - 5.1 mmol/L 10/24/2018 3:23 PM [facility] Chloride 100 98 - 107 mmol/L 10/24/2018 3:23 PM [facility] CO2 28 21 - 32 mmol/L 10/24/2018 3:23 PM [facility] Glucose 109(H) 74 - 106 mg/dL 10/24/2018 3:23 PM [facility] BUN 10 7.0 - 18.0 mg/dL 10/24/2018 3:23 PM [facility] Creatinine 0.98 0.70 - 1.30 mg/dL 10/24/2018 3:23 PM [facility] Calcium 9.6 8.5 - 10.1 mg/dL 10/24/2018 3:23 PM [facility] Total Protein 7.3 6.4 - 8.2 g/dL 10/24/2018 3:23 PM [facility] Albumin 4.2 3.4 - 5.0 g/dL 10/24/2018 3:23 PM [facility] Bilirubin Total 0.5 0.2 - 1.0 mg/dL 10/24/2018 3:23 PM [facility] Alkaline Phosphatase 99 56 - 119 U/L 10/24/2018 3:23 PM [facility] AST 39(H) 15 - 37 U/L 10/24/2018 3:23 PM [facility] ALT 60 12 - 78 U/L 10/24/2018 3:23 PM SENIOR UI SOFTWARE ENGINEER [facility] Creatinine Based eGFR >60 10/24/2018 3:23 PM SENIOR UI SOFTWARE ENGINEER [facility] Comment: GFR REFERENCE RANGE: >60 mL/min/1.73m2 -- An eGFR of > than, or = to 60, may indicate normal renal function or mildly decreased GFR. EGFR /Djiboutian >60 10/24/2018 3:23 PM SENIOR UI SOFTWARE ENGINEER [facility] Comment: -- An eGFR of > than, or = to 60, may indicate normal renal function or mildly decreased GFR. Serum specimen (specimen) 10/24/2018 12:15 PM SENIOR UI SOFTWARE ENGINEER 10/24/2018 1:47 PM SENIOR UI SOFTWARE ENGINEER us Lacey Perdue MD LAB BLOOD ORDERABLES Final R esult Performing Organization Address City/[facility]/ZIP Co de Phone Number [facility] [address] [place], [place] * (ABNORMAL) C-reactive protein (10/24/2018 12:15 PM SENIOR UI SOFTWARE ENGINEER) CRP 2.20(H) 0.2 - 0.9 mg/dL 10/24/2018 3:23 PM SENIOR UI SOFTWARE ENGINEER [facility] Serum specimen (specimen) 10/24/2018 12:15 PM SENIOR UI SOFTWARE ENGINEER 10/24/2018 1:47 PM SENIOR UI SOFTWARE ENGINEER us Lacey Perdue MD LAB BLOOD ORDERABLES Final R esult [facility] [address] [place], [place] documented in this encounter Visit Diagnoses Diagnosis Encounter for long-term (current) use of antibiotics- Primary Primary localized osteoarthrosis Primary localized osteoarthrosis, unspecified site documented in this encounter Care Teams Industrial Sales Representative Relationship Specialty Start Date End Date Coco Leos PA-C [address] [place] [address] PCP - General Physician Hotel Service Supervisor 10/25/17 11/24/18 Denny Dey DO [address] [place] [address] Referring Physician Orthopedic Surgery 06/28/18 9 Lacey Perdue MD [address] [address] Referring Physician Infectious Diseases 06/28/18 documented as of this encounter
--- OUTSIDE RECORDS SUMMARY | 2024-11-23 00:30 | XMS_ITS | Encounter Summary ---
Author Organization [facility] Address [address] [place] [address] Care Team Providers Care Log Cutter Name Role Phone Coco Leos PA-C Primary Care Provider [phone] Denny Dey DO Unavailable [phone] Lacey Perdue MD Unavailable [phone] Reason for Visit * Reason Onset Date Comments script 10/07/2018 Encounter Details Date Type Department Care Team (Late st Contact Info) Description 10/07/[address] [address] Yael Sim, PLANT UTILITY PERSON [address] [facility] [address] [place] [address] script Social History Tobacco Use Types Packs/Day Years [...] of Assessment Author No 10/25/2017 2:00 PM BLUEPRINTING AND PHOTOCOPY SUPERVISOR Galvan, Am y S, WEED ERADICATOR * Do you have serious difficulty walking or climbing stairs? (5 years old or older) Answer Date of Assessment Author No 10/25/2017 2:00 PM BLUEPRINTING AND PHOTOCOPY SUPERVISOR Deonna Galvan y S, WEED ERADICATOR * Do you have difficulty dressing or bathing? (5 years old or older) Answer Date of Assessment Author No 10/25/2017 2:00 PM BLUEPRINTING AND PHOTOCOPY SUPERVISOR Deonna Galvan y S, WEED ERADICATOR * Because of a physical, mental, or emotional condition, do you have difficulty doing errands alone such as visiting a doctor's office or shopping? (15 years old or older) Answer Date of Assessment Author No 10/25/2017 2:00 PM BLUEPRINTING AND PHOTOCOPY SUPERVISOR Deonna Galvan y S, WEED ERADICATOR documented as of this encounter Mental Status * Because of a physical, mental, or emotional condition, do you have serious difficulty concentrating, remembering, or making decisions? (5 years old or older) Answer Entry Date Author No 10/25/2017 2:00 PM Deonna Padilla, WEED ERADICATOR documented in this encounter Miscellaneous Notes * Telephone Encounter - Yael Sim LPN - 10/07/2018 8:16 AM BLUEPRINTING AND PHOTOCOPY SUPERVISOR Pt called to inquire if clinic staff had taken script to pharmacy for pt. Instructed pt that he needs to pick up operator script at clinic. Pt sts that he will be in sometime today to pick up operator script. Pt sts that he had transportation problems last week et that he informed clinic staff of this issue. Pt started cussing et hung up phone. PRINTING AND PHOTOCOPY SUPERVISOR documented in this encounter Plan of Treatment Not on file documented as of this encounter Goals Goal Patient Goal Type Associated Problems Recent Progress Patient-Stated? Author Blood Pressure < 140/90 Blood Pressure 134/86(2022 2:25 PM CDT) No Leonard Jasso APRN documented as of this encounter Visit Diagnoses Not on filedocumented in this encounter Care Teams Log Cutter Relationship Specialty Start Date End Date Coco Leos PA-C [address] [place] [address] PCP - General Physician Upward Bound Director 10/25/17 11/24/18 Denny Dey DO [address] [place] [address] Referring Physician Orthopedic Surgery 06/28/18 9 Lacey Perdue MD [address] [address] Referring Physician Infectious Diseases 06/28/18 documented as of this encounter
--- OUTSIDE RECORDS SUMMARY | 2024-11-23 00:30 | XMS_ITS | Encounter Summary ---
Author Organization [facility] Address [address] [place] [address] Care Team Providers Care Timber Inspector Name Role Phone Coco Leos PA-C Primary Care Provider [phone] Denny Dey DO Unavailable [phone] Lacey Perdue MD Unavailable [phone] Encounter Details Date Type Department Care Team (Late st Contact Info) Description 10/04/2018 Orders Only [facility] [address] [place] [address] Yael Sim, COKE CRUSHER OPERATOR [address] [place] [address] 20[address] [place] [address] Social History Tobacco Use Types [...] of Assessment Author No 10/25/2017 2:00 PM BUDDER Galvan, Am y S, FORCER MAKER * Do you have difficulty dressing or bathing? (5 years old or older) Answer Date of Assessment Author No 10/25/2017 2:00 PM BUDDER Galvan, Am y S, FORCER MAKER * Because of a physical, mental, or emotional condition, do you have difficulty doing errands alone such as visiting a doctor's office or shopping? (15 years old or older) Answer Date of Assessment Author No 10/25/2017 2:00 PM BUDDER Galvan, Am y S, FORCER MAKER documented as of this encounter Mental Status * Because of a physical, mental, or emotional condition, do you have serious difficulty concentrating, remembering, or making decisions? (5 years old or older) Answer Entry Date Author No 10/25/2017 2:00 PM BUDDER Galvan, Am y S, FORCER MAKER documented in this encounter Plan of Treatment Not on file documented as of this encounter Goals Goal Patient Goal Type Associated Problems Recent Progress Patient-Stated? Author Blood Pressure < 140/90 Blood Pressure 134/86(2022 2:25 PM CDT) No Leonard Jasso APRN documented as of this encounter Visit Diagnoses Not on filedocumented in this encounter Care Teams Timber Inspector Relationship Specialty Start Date End Date Coco Leos PA-C [address] [place] [address] PCP - General Physician Dressmaking Teacher 10/25/17 11/24/18 Denny Dey DO [address] [place] [address] Referring Physician Orthopedic Surgery 06/28/18 9 Lacey Perdue MD [address] [address] Referring Physician Infectious Diseases 06/28/18 documented as of this encounter
--- OUTSIDE RECORDS SUMMARY | 2024-11-23 00:30 | XMS_ITS | Encounter Summary ---
Author Organization [facility] Address [address] [place] [address] Care Team Providers Care Chipper Feeder Name Role Phone Coco Leos PA-C Primary Care Provider [phone] Denny Dey DO Unavailable [phone] Lacey Perdue MD Unavailable [phone] Encounter Details Date Type Department Care Team (Late st Contact Info) Description 10/04/2018 Orders Only [facility] [address] [place] [address] Yael Sim, MINCEMEAT MAKER [address] [place] [address] 20[address] [place] [address] Social History Tobacco Use Types [...] Assessment Author No 10/25/2017 2:00 PM FIELD INSTALLER Galvan, Am y S, DAY CARE WORKER * Do you have difficulty dressing or bathing? (5 years old or older) Answer Date of Assessment Author No 10/25/2017 2:00 PM FIELD INSTALLER Galvan, Am y S, DAY CARE WORKER * Because of a physical, mental, or emotional condition, do you have difficulty doing errands alone such as visiting a doctor's office or shopping? (15 years old or older) Answer Date of Assessment Author No 10/25/2017 2:00 PM FIELD INSTALLER Galvan, Am y S, DAY CARE WORKER documented as of this encounter Mental Status * Because of a physical, mental, or emotional condition, do you have serious difficulty concentrating, remembering, or making decisions? (5 years old or older) Answer Entry Date Author No 10/25/2017 2:00 PM FIELD INSTALLER Galvan, Am y S, DAY CARE WORKER documented in this encounter Plan of Treatment Not on file documented as of this encounter Goals Goal Patient Goal Type Associated Problems Recent Progress Patient-Stated? Author Blood Pressure < 140/90 Blood Pressure 134/86(2022 2:25 PM CDT) No Leonard Jasso APRN documented as of this encounter Visit Diagnoses Not on filedocumented in this encounter Care Teams Chipper Feeder Relationship Specialty Start Date End Date Coco Leos PA-C [address] [place] [address] PCP - General Physician Intermediate Manager 10/25/17 11/24/18 Denny Dey DO [address] [place] [address] Referring Physician Orthopedic Surgery 06/28/18 9 Lacey Perdue MD [address] [address] Referring Physician Infectious Diseases 06/28/18 documented as of this encounter
--- OUTSIDE RECORDS SUMMARY | 2024-11-23 00:30 | XMS_ITS | Encounter Summary ---
Author Organization [facility] Address [address] [place] [address] Care Team Providers Care Scrubber Operator Name Role Phone Coco Leos PA-C Primary Care Provider [phone] Denny Dey DO Unavailable [phone] Lacey Perdue MD Unavailable [phone] Encounter Details Date Type Department Care Team (Late st Contact Info) Description 10/04/2018 Orders Only [facility] [address] [place], [place] [id number] Leonard Jasso, PASSENGER RATE CLERK [address] [place], [place] [id number] Social History Tobacco Use Types Packs/Day Years [...] of Assessment Author No 10/25/2017 2:00 PM MEMBERSHIP SOLICITOR Galvan, Am y S, COOK JELLY * Do you have serious difficulty walking or climbing stairs? (5 years old or older) Answer Date of Assessment Author No 10/25/2017 2:00 PM MEMBERSHIP SOLICITOR Deonna Galvan y S, COOK JELLY * Do you have difficulty dressing or bathing? (5 years old or older) Answer Date of Assessment Author No 10/25/2017 2:00 PM MEMBERSHIP SOLICITOR Cole Am y S, COOK JELLY * Because of a physical, mental, or emotional condition, do you have difficulty doing errands alone such as visiting a doctor's office or shopping? (15 years old or older) Answer Date of Assessment Author No 10/25/2017 2:00 PM MEMBERSHIP SOLICITOR Cole Am y S, COOK JELLY documented as of this encounter Mental Status * Because of a physical, mental, or emotional condition, do you have serious difficulty concentrating, remembering, or making decisions? (5 years old or older) Answer Entry Date Author No 10/25/2017 2:00 PM MEMBERSHIP SOLICITOR Deonna Galvan y S, COOK JELLY documented in this encounter Plan of Treatment Not on file documented as of this encounter Goals Goal Patient Goal Type Associated Problems Recent Progress Patient-Stated? Author Blood Pressure < 140/90 Blood Pressure 134/86(2022 2:25 PM CDT) No Leonard Jasso APRN documented as of this encounter Visit Diagnoses Not on filedocumented in this encounter Care Teams Scrubber Operator Relationship Specialty Start Date End Date Coco Leos PA-C [address] [place] [address] PCP - General Physician Interventional Tech 10/25/17 11/24/18 Denny Dey DO [address] [place] [address] Referring Physician Orthopedic Surgery 06/28/18 9 Lacey Perdue MD [address] [phone] Referring Physician Infectious Diseases 06/28/18 documented as of this encounter
--- OUTSIDE RECORDS SUMMARY | 2024-11-23 00:30 | XMS_ITS | Encounter Summary ---
Author Organization [employer] Address [address] [place] [address] Care Team Providers Care Steam Flattener Name Role Phone RobertbetoGraceCoco Katt WISE Primary Care Provider [phone] Denny Dey DO Unavailable [phone] Lacey Perdue MD Unavailable Encounter Details Date Type Department Care Team (Latest Contact Info) Description 10/17/2018 Transcribe Orders [facility] [address] [place] [address] Lacey Perdue MD [address] [address] Encounter for long-term (current) use [...] of Assessment Author No 10/25/2017 2:00 PM ASIC VERIFICATION ENGINEER Deonna Galvan, GEORGE * Are you blind or do you have serious difficulty seeing, even when wearing glasses? Answer Date of Assessment Author No 10/25/2017 2:00 PM Deonna Padilla ARNP * Do you have serious difficulty walking or climbing stairs? (5 years old or older) Answer Date of Assessment Author No 10/25/2017 2:00 PM Deonna Padilla, MOTION PICTURE DIRECTOR * Do you have difficulty dressing [...] as of this encounter Results * (ABNORMAL) Vancomycin, trough (10/17/2018 12:00 PM ASIC VERIFICATION ENGINEER) Vancomycin Trough 12.0(H) 5.0 - 10.0 mcg/mL [facility] Blood specimen (specimen) 10/17/2018 12:00 PM ASIC VERIFICATION ENGINEER 10/17/2018 1:32 PM ASIC VERIFICATION ENGINEER us Lacey Perdue MD LAB BLOOD ORDERABLES Final R esult [facility] [address] [place] * (ABNORMAL) Sedimentation rate (10/17/2018 12:00 PM ASIC VERIFICATION ENGINEER) Sedimentation Rate 31(H) 0 - 20 mm/hr [facility] Blood specimen (specimen) 10/17/2018 12:00 PM ASIC VERIFICATION ENGINEER 10/17/2018 1:32 PM ASIC VERIFICATION ENGINEER us Lacey Perdue MD LAB BLOOD ORDERABLES Final R esult [facility] [address] [place] * (ABNORMAL) C-reactive protein (10/17/2018 12:00 PM ASIC VERIFICATION ENGINEER) CRP <0.20(L) 0.2 - 0.9 mg/dL [facility] Blood specimen (specimen) 10/17/2018 12:00 PM ASIC VERIFICATION ENGINEER 10/17/2018 1:32 PM ASIC VERIFICATION ENGINEER us Lacey Perdue MD LAB BLOOD ORDERABLES Final R esult [facility] [address] [place] * (ABNORMAL) Comprehensive metabolic panel (10/17/2018 12:00 PM ASIC VERIFICATION ENGINEER) Sodium 142 136 - 145 mmol/L [facility] Potassium 3.8 3.5 - 5.1 mmol/L [facility] Chloride 104 98 - 107 mmol/L [facility] CO2 26 21 - 32 mmol/L [facility] Glucose 125(H) 74 - 106 mg/dL [facility] BUN 11 7.0 - 18.0 mg/dL [facility] Creatinine 1.01 0.70 - 1.30 mg/dL [facility] Calcium 9.0 8.5 - 10.1 mg/dL [facility] Total Protein 7.1 6.4 - 8.2 g/dL [facility] Albumin 3.8 3.4 - 5.0 g/dL [facility] Bilirubin Total 0.5 0.2 - 1.0 mg/dL [facility] Alkaline Phosphatase 94 56 - 119 U/L [facility] AST 60(H) 15 - 37 U/L [facility] ALT 75 12 - 78 U/L [facility] Creatinine Based eGFR >60 [facility] Comment: GFR REFERENCE RANGE: >60 mL/min/1.73m2 -- An eGFR of > than, or = to 60, may indicate normal renal function or mildly decreased GFR. EGFR /Indian >[address] [facility] Comment: -- An eGFR of > than, or = to 60, may indicate normal renal function or mildly decreased GFR. Blood specimen (specimen) 10/17/2018 12:00 PM ASIC VERIFICATION ENGINEER 10/17/2018 1:32 PM ASIC VERIFICATION ENGINEER us Lacey Perdue MD LAB BLOOD ORDERABLES Final R esult [facility] [address] [place], [place] * CBC and differential (10/17/2018 12:00 PM ASIC VERIFICATION ENGINEER) WBC 6.38 4.00 - 11.00 th/mm3 [facility] RBC 5.17 4.50 - 6.50 mill/mm3 [facility] HGB 15.2 13.8 - 18.0 g/dL [facility] HCT 45.3 40.0 - 54.0 % [facility] MCV 87.6 76 - 99 fL [facility] MCH 29.4 27.0 - 32.0 pg [facility] MCHC 33.6 30.0 - 35.0 g/dL [facility] Platelets 175 135 - 470 th/mm3 [facility] RDW 13.2 11.0 - 17.0 % [facility] MPV 10.4 8.0 - 12.5 fL [facility] Differential Type AUTOMATED DIFFERENTIAL [facility] Neutrophil % 58.0 45.0 - 75.0 % [facility] Lymphocytes % 27.4 20.0 - 45.0 % [facility] Monocyte % 10.0 0.0 - 10.0 % [facility] Eosinophils Relative % 4.1 0.0 - 5.0 % [facility] Basophils % 0.3 0.0 - 2.0 % [facility] Immature Granulocytes% 0.2 0.0 - 1.6 % [facility] Neutrophils Absolute 3.70 2.00 - 7.900 th/mm3 [facility] Lymphocytes Absolute 1.75 1.00 - 4.00 th/mm3 [facility] Monos Absolute 0.64 0.0 - 0.80 th/mm3 [facility] Eosinophils Absolute Count 0.26 0.00 - 0.40 th/mm3 [facility] Basophils Absolute 0.02 0.00 - 0.10 th/mm3 [facility] Immature Granulocytes Absolute 0.01 0.0 - 0.20 th/mm3 [facility] Blood specimen (specimen) BLOOD SPECIMEN / Unknown 10/17/2018 12:00 PM ASIC VERIFICATION ENGINEER 10/17/2018 1:32 PM ASIC VERIFICATION ENGINEER us Lacey Perdue MD LAB BLOOD ORDERABLES Edited Result - Final [facility] [address] [place], [place] documented in this encounter Visit Diagnoses Diagnosis Encounter for long-term (current) use of antibiotics- Primary Primary localized osteoarthrosis Primary localized osteoarthrosis, unspecified site documented in this encounter Care Teams Steam Flattener Relationship Specialty Start Date End Date Coco Leos PA-C [address] [place] [address] PCP - General Physician Assurance Manager Insurance 10/25/17 11/24/18 Denny Dey DO [address] [place] [address] Referring Physician Orthopedic Surgery 06/28/18 9 Lacey Perdue MD [address] [phone] Referring Physician Infectious Diseases 06/28/18 documented as of this encounter
--- OUTSIDE RECORDS SUMMARY | 2024-11-23 00:30 | XMS_ITS | Encounter Summary ---
Author Organization [employer] Address [address] [place] [address] Care Team Providers Care Actuarial Trainee Name Role Phone Denny Dey DO Unavailable Lacey Perdue MD Unavailable Leonard Jasso APRN Primary Care Provide r Reason for Visit * Reason Comments Initial Consult Pt here to consult f or a colonoscopy * Referral (Routine) - Closed Specialty Diagnoses / Procedures Referred By Contjessica t Referred To Contact General Surgery Diagnoses Encounter for screening colonoscopy Leonadr Jasso, ANGIE [facility] [place] [address] Phone: tel: fax: Siddhartha Loyd MD [address] [place] [address] [address] [place] [address] Phone: tel: fax: Referral ID Status Reason Start Date Expiration Date V isits Requested Visits Authorized [id number] Closed Specialty Services Required 11/25/2018 11/25/2019 1 1 Encounter Details Date Type Department Care Team (Latest Contact Info) Description 12/01/2018 9:00 AM GLASS SANDER [facility]T Initial consult [facility] [address], [address] [place] [phone] Siddhartha Loyd MD [address] [place] [address] [address] [place] [address] Personal history of colonic polyps (Primary Dx) Social History Tobacco Use Types [...] Reading Time Taken Comments Blood Pressure 110/76 12/01/2018 9:15 AM [facility]ASS SANDER [facility]T Pulse 96 12/01/2018 9:15 AM [facility] S[facility]ER [facility]T Temperature 36.2 ??C (97.2 ??F) 12/01/2018 9:15 AM CS T Respiratory Rate 18 12/01/2018 9:15 AM [facility] SANDER [facility]T Oxygen Saturation 94% 12/01/2018 9:15 AM GLASS SANDER [facility]T Inhaled Oxygen Concentration - - Weight 89.6 kg (197 lb 9.6 oz) 12/01/2018 9:15 A M [facility] Height 180.3 cm (5' 11 ) 12/01/2018 9:15 AM GLASS SANDER BELT Body Mass Index 27.56 12/01/2018 9:15 AM GLASS SANDER BELT documented in this encounter Functional Status * Are you deaf or do you have serious difficulty hearing? Answer Date of Assessment Author No 10/25/2017 2:00 PM GLASS SANDER BELT Deonna Galvan ARNP * Are you blind [...] Progress Notes * Siddhartha Loyd MD - 12/01/2018 9:00 AM CST Surgical Services History and Physical Name: Edilberto Hawley Date of : 1955 Age: 63 y.o. Sex: male Patient's Primary Care Physician: TIFFANI Galeano Referred by: Leonard Jasso, * This is a [facility] patient. Chief Complaint: Chief Complaint Patient presents with ??? Initial Consult Pt here to consult for a colonoscopy Initial Consult (Pt here to consult for a colonoscopy) HPI: 63 y.o. male presents today to [...] ??? Shoulder injury ??? Substance abuse ([facility]) cocaine, crystal meth nothing since 1996 ??? Wrist disorder R frzn wrist, 2 screws Past Surgical History: Procedure Laterality Date ??? Elbow surgery Left metal plate from [...] intolerance. No excessive bruising or bleeding. INTEGUMENTARY: Patient has an open wound on his right foot. Is currently being treated by wound clinic. The rest of review of systems is unremarkable. Physical Examination: Vitals: 12/01/18 0915 BP: 110/76 Pulse: 96 Resp: 18 Temp: 36.2 ??C (97.2 ??F) TempSrc: Tympanic SpO2: 94% Weight: 89.6 kg (197 lb 9.6 oz) Height: 1.803 m (5' 11 ) Body mass index is 27.56 kg/m??. GENERAL: 63-year-old in no apparent distress. Vital signs stable. CHEST: Lungs are clear to auscultation. Good air movement. No palpation or masses on palpation of the chest wall. HEART: Regular rate and rhythm on auscultation. No murmurs or rubs noted. ABDOMEN: Positive bowel sounds. Soft and nontender on palpation. No guarding or rebound noted. No masses organomegaly noted. EXTREMITIES: Normal strength and tone. LAB AND RADIOLOGY: Hospital Outpatient Visit on 11/14/2018 Component Date [...] ??? ALT 11/14/2018 63 ? ? EGFR Non-/Citizen Of [place] 11/14/2018 >60 ? ? EGFR /Citizen Of [place] 11/14/2018 >60 ??? Vancomycin Trough 11/14/2018 10.8* ??? CRP 11/14/2018 1.30* Hospital Outpatient Visit on 11/11/2018 Component Date Value ??? Sodium 11/11/2018 137 ??? Potassium 11/11/2018 4.2 ??? Chloride 11/11/2018 102 ??? CO2 11/11/2018 26 ??? Glucose 11/11/2018 162* ??? BUN 11/11/2018 13 ??? Creatinine, Serum 11/11/2018 0.93 ??? Calcium 11/11/2018 9.0 ? ? EGFR Non-/Citizen Of [place] 11/11/2018 >60 ? ? EGFR /Citizen [place] 11/11/2018 >60 ??? Vancomycin Trough 11/11/2018 7.1 [...] ??? ALT 11/07/2018 51 ? ? EGFR Non-/Citizen Of [place] 11/07/2018 >60 ? ? EGFR /Citizen [place] 11/07/2018 >60 ??? Sedimentation Rate 11/07/2018 25* ??? Vancomycin Trough 11/07/2018 9.9 Hospital Outpatient Visit on 11/04/2018 Component Date Value ??? Vancomycin Trough 11/04/2018 10.1* ??? Sodium 11/04/2018 141 ??? Potassium 11/04/2018 4.0 ??? Chloride 11/04/2018 106 ??? CO2 11/04/2018 26 ??? Glucose 11/04/2018 122* ??? BUN 11/04/2018 20* ??? Creatinine, Serum 11/04/2018 0.96 ??? Calcium 11/04/2018 9.3 ? ? EGFR Non-/Citizen Of [place] 11/04/2018 >60 ? ? EGFR /Citizen Of [place] 11/04/2018 >60 Impression and Plan: 63-year-old with personal history of colon polyps. I recommended colonoscopy. The risk and benefits of the procedure were explained in detail. The risk of anesthesia. The risk ofinjuring the bowel to manipulation of the scope ordering a biopsy process. The need for a bowel prep was explained. The patient understands, and wishes to proceed. He will be scheduled for colonoscopy. The encounter diagnosis was Personal history of colonic polyps. Siddhartha Loyd MD, FACS [facility] documented in this encounter Plan of Treatment Not on file documented as of this encounter Goals Goal Patient Goal Type Associated Problems Recent Progress Patient-Stated? Author Blood Pressure < 140/90 Blood Pressure 134/86(2022 2:25 PM CDT) No Leonard Jasso APRN documented as of this encounter Visit Diagnoses Diagnosis Personal history of colonic polyps- Primary documented in this encounter Care Teams Actuarial Trainee Relationship Specialty Start Date End Date Leonard Jasso APRN [facility] [place] [address] PCP - General Family Medicine 11/25/18 08/14/19 Denny Dey DO Referring Physician Orthopedic Surgery 06/28/18 9 Lacey Perdue MD [address] [phone] Referring Physician Infectious Diseases 06/28/18 documented as of this encounter
--- OUTSIDE RECORDS SUMMARY | 2024-11-23 00:30 | XMS_ITS | Encounter Summary ---
Author Organization [employer] Address [address] [place] [address] Care Team Providers Care Manager Radio Name Role Phone Coco Leos PA-C Primary Care Provider [phone] Denny Dey DO Unavailable [phone] Lacey Perdue MD Unavailable [phone] Encounter Details Date Type Department Care Team (Latest Contact Info) Description 11/04/2018 11:45 AM REHAB CARE ASSISTANT - 11/04/2018 11:59 PM REHAB CARE ASSISTANT Hospital Encounter [facility] [address] [place] [phone] Encounter for long-term (current) use of antibiotics; [...] of Assessment Author No 10/25/2017 2:00 PM REHAB CARE ASSISTANT Galvan, Am y S, TEACHER AIDE * Do you have serious difficulty walking [...] Date/Time Associated Diagnosis Comments VANCOMYCIN, TROUGH Routine 11/04/2018 11 :45 AM REHAB CARE ASSISTANT Encounter for long-term (current) use of antibiotics Primary localized osteoarthrosis BASIC METABOLIC PANEL Routine 11/04/2018 11:45 AM REHAB CARE ASSISTANT Encounter for long-term (current) use of antibiotics Primary localized osteoarthrosis documented in this encounter Results * (ABNORMAL) Basic metabolic panel (11/04/2018 11:45 AM REHAB CARE ASSISTANT) Sodium 141 136 - 145 mmol/L 11/04/2018 1:[address] [facility] Potassium 4.0 3.5 - 5.1 mmol/L 11/04/2018 1:[address] [facility] Chloride 106 98 - 107 mmol/L 11/04/2018 1:[address] [facility] CO2 26 21 - 32 mmol/L 11/04/2018 1:[address] [facility] Glucose 122(H) 74 - 106 mg/dL 11/04/2018 1:[address] [facility] BUN 20(H) 7.0 - 18.0 mg/dL 11/04/2018 1:[address] [facility] Creatinine 0.96 0.70 - 1.30 mg/dL 11/04/2018 1:[address] [facility] Calcium 9.3 8.5 - 10.1 mg/dL 11/04/2018 1:02 PM REHAB CARE ASSISTANT [facility] Creatinine Based eGFR >60 11/04/2018 1:02 PM REHAB CARE ASSISTANT [facility] [employer] [facility] Comment: GFR REFERENCE RANGE: >60 mL/min/1.73m2 -- An eGFR of > than, or = to 60, may indicate normal renal function or mildly decreased GFR. EGFR /Karla n >60 11/04/2018 1:02 PM REHAB CARE ASSISTANT [facility] [employer] [facility] Comment: -- An eGFR of > than, or = to 60, may indicate normal renal function or mildly decreased GFR. Serum specimen (specimen) 11/04/2018 11:45 AM REHAB CARE ASSISTANT 11/04/2018 12:23 PM REHAB CARE ASSISTANT Lacey Perdue MD LAB BLOOD ORDERABLES Final R esult [facility] [facility] [address] [place] [address] * (ABNORMAL) Vancomycin, trough (11/04/2018 11:45 AM REHAB CARE ASSISTANT) Vancomycin Trough 10.1(H) 5.0 - 10.0 mcg/mL 11/04/2018 1:02 PM REHAB CARE ASSISTANT [facility] [facility] Serum specimen (specimen) 11/04/2018 11:45 AM REHAB CARE ASSISTANT 11/04/2018 12:23 PM REHAB CARE ASSISTANT us Lacey Perdue MD LAB BLOOD ORDERABLES Final R esult [facility] [employer] [facility] [address] [place] [address] documented in this encounter Visit Diagnoses Diagnosis Encounter for long-term (current) use of antibiotics Primary localized osteoarthrosis Primary localized osteoarthrosis, unspecified site documented in this encounter Care Teams Manager Radio Relationship Specialty Start Date End Date Coco Leos PA-C [address] [place] [address] PCP - General Physician Automobile Brake Bonder 10/25/17 11/24/18 Denny Dey DO [address] [place] [address] Referring Physician Orthopedic Surgery 06/28/18 9 Lacey Perdue MD [address] [phone] Referring Physician Infectious Diseases 06/28/18 documented as of this encounter
--- OUTSIDE RECORDS SUMMARY | 2024-11-23 00:30 | XMS_ITS | Encounter Summary ---
Author Organization [facility] Address [address] [place] [address] Care Team Providers Care Wire Drawer Name Role Phone Coco Leos PA-C Primary Care Provider [phone] Denny Dey DO Unavailable [phone] Lacey Perdue MD Unavailable [phone] Encounter Details Date Type Department Care Team (Latest Contact Info) Description 11/07/2018 10:15 AM OFFICE SECRETARY - 11/07/2018 11:59 PM OFFICE SECRETARY Hospital Encounter [facility] [address] [place] [phone] Encounter for long-term (current) use of antibiotics; [...] of Assessment Author No 10/25/2017 2:00 PM OFFICE SECRETARY Galvan, Am y S, PIPELINES MANAGER * Do you have serious difficulty [...] Date/Time Associated Diagnosis Comments SEDIMENTATION RATE Routine 11/07/2018 10 :15 AM OFFICE SECRETARY Encounter for long-term (current) use of antibiotics Primary localized osteoarthrosis CBC AND DIFFERENTIAL Routine 11/07/2018 10:15 AM OFFICE SECRETARY Encounter for long-term (current) use of antibiotics Primary localized osteoarthrosis VANCOMYCIN, TROUGH Routine 11/07/2018 10 :15 AM OFFICE SECRETARY Encounter for long-term (current) use of antibiotics Primary localized osteoarthrosis COMPREHENSIVE METABOLIC PANEL Routine 11/07/2018 10:15 AM OFFICE SECRETARY Encounter for long-term (current) use of antibiotics Primary localized osteoarthrosis documented in this encounter Results * Vancomycin, trough (11/07/2018 10:15 AM OFFICE SECRETARY) Vancomycin Trough 9.9 5.0 - 10.0 mcg/mL 11/07/2018 11:[address] [facility] [employer] [facility] Serum specimen (specimen) 11/07/2018 10:15 AM OFFICE SECRETARY 11/07/2018 10:40 AM OFFICE SECRETARY us Lacey Perdue MD LAB BLOOD ORDERABLES Final R esult [facility] [employer] [facility] [address] [place], [place] * (ABNORMAL) Sedimentation rate (11/07/2018 10:15 AM [facility]) Sedimentation Rate 25(H) 0 - 20 mm/hr 11/07/2018 11:[address] [facility] [employer] [facility] Whole blood specimen (specimen) 11/07/2018 10:15 AM OFFICE SECRETARY 11/07/2018 10:40 AM [facility] us Lacey Perdue MD LAB BLOOD ORDERABLES Final R esult [facility] [employer] [facility] [address] [place] * (ABNORMAL) Comprehensive metabolic panel (11/07/2018 10:15 AM [facility]) Sodium 139 136 - 145 mmol/L 11/07/2018 11:[address] [facility] [employer] [facility] Potassium 4.3 3.5 - 5.1 mmol/L 11/07/2018 11:[address] [facility] [employer] [facility] Chloride 103 98 - 107 mmol/L 11/07/2018 11:[address] [facility] [employer] [facility] CO2 24 21 - 32 mmol/L 11/07/2018 11:[address] [facility] [employer] [facility] Glucose 119(H) 74 - 106 mg/dL 11/07/2018 11:[address] [facility] [employer] [facility] BUN 14 7.0 - 18.0 mg/dL 11/07/2018 11:[address] [facility] [employer] [facility] Creatinine 0.87 0.70 - 1.30 mg/dL 11/07/2018 11:[address] [facility] [employer] [facility] Calcium 9.2 8.5 - 10.1 mg/dL 11/07/2018 11:[address] [facility] [employer] [facility] Total Protein 7.1 6.4 - 8.2 g/dL 11/07/2018 11:[address] [facility] [employer] [facility] Albumin 3.9 3.4 - 5.0 g/dL 11/07/2018 11:[address] [facility] [employer] [facility] Bilirubin Total 0.4 0.2 - 1.0 mg/dL 11/07/2018 11:[address] [facility] [employer] [facility] Alkaline Phosphatase 94 56 - 119 U/L 11/07/2018 11:[address] [facility] AST 40(H) 15 - 37 U/L 11/07/2018 11:[address] [facility] [employer] [facility] ALT 51 16 - 63 U/L 11/07/2018 11:[address] [facility] [employer] [facility] Creatinine Based eGFR >60 11/07/2018 11:[address] [facility] [employer] [facility] Comment: GFR REFERENCE RANGE: >60 mL/min/1.73m2 -- An eGFR of > than, or = to 60, may indicate normal renal function or mildly decreased GFR. EGFR /Mongolian >60 11/07/2018 11:[address] [facility] Comment: -- An eGFR of > than, or = to 60, may indicate normal renal function or mildly decreased GFR. Serum specimen (specimen) 11/07/2018 10:15 AM OFFICE SECRETARY 11/07/2018 10:40 AM [facility] us Lacey Perdue MD LAB BLOOD ORDERABLES Final R esult [facility] [employer] [facility] [address] [place], [place] * CBC and differential (11/07/2018 10:15 AM [facility]) WBC 7.32 4.00 - 11.00 th/mm3 11/07/2018 10:[address] [facility] [employer] [facility] RBC 5.30 4.50 - 6.50 mill/mm3 11/07/2018 10:[address] [facility] [employer] [facility] HGB 15.8 13.8 - 18.0 g/dL 11/07/2018 10:[address] [facility] [employer] [facility] HCT 45.8 40.0 - 54.0 % 11/07/2018 10:[address] [facility] MCV 86.4 76 - 99 fL 11/07/2018 10:[address] [facility] MCH 29.8 27.0 - 32.0 pg 11/07/2018 10:[address] [facility] MCHC 34.5 30.0 - 35.0 g/dL 11/07/2018 10:[address] [facility] Platelets 200 135 - 470 th/mm3 11/07/2018 10:[address] [facility] RDW 12.7 11.0 - 17.0 % 11/07/2018 10:[address] [facility] MPV 9.8 8.0 - 12.5 fL 11/07/2018 10:[address] [facility] Differential Type AUTOMATED DIFFERENTIAL 11/07/2018 10:[address] [facility] Neutrophil % 58.5 45.0 - 75.0 % 11/07/2018 10:[address] [facility] Lymphocytes % 29.0 20.0 - 45.0 % 11/07/2018 10:[address] [facility] Monocyte % 8.9 0.0 - 10.0 % 11/07/2018 10:[address] [facility] Eosinophils Relative % 3.1 0.0 - 5.0 % 11/07/2018 10:[address] [facility] Basophils % 0.4 0.0 - 2.0 % 11/07/2018 10:[address] [facility] Immature Granulocytes% 0.1 0.0 - 1.6 % 11/07/2018 10:[address] [facility] Neutrophils Absolute 4.28 2.00 - 7.90 th/mm3 11/07/2018 10:[address] [facility] Lymphocytes Absolute 2.12 1.00 - 4.00 th/mm3 11/07/2018 10:[address] [facility] Monos Absolute 0.65 0.00 - 0.80 th/mm3 11/07/2018 10:[address] [facility] Eosinophils Absolute Count 0.23 0.00 - 0.40 th/mm3 11/07/2018 10:[address] [facility] Basophils Absolute 0.03 0.00 - 0.10 th/mm3 11/07/2018 10:[address] [facility] Immature Granulocytes Absolute 0.01 0.0 - 0.20 th/mm3 11/07/2018 10:[address] [facility] Serum specimen (specimen) BLOOD SPECIMEN / Unknown 11/07/2018 10:15 AM OFFICE SECRETARY 11/07/2018 10:40 AM [facility] us Lacey Perdue MD LAB BLOOD ORDERABLES Final R esult [facility] [employer] [facility] [address] [place] [address] documented in this encounter Visit Diagnoses Diagnosis Encounter for long-term (current) use of antibiotics Primary localized osteoarthrosis Primary localized osteoarthrosis, unspecified site documented in this encounter Care Teams Wire Drawer Relationship Specialty Start Date End Date Coco Leos PA-C [address] [place] [id number] PCP - General Physician Cover Creaser 10/25/17 11/24/18 Denny Dey DO [address] [place] [address] Referring Physician Orthopedic Surgery 06/28/18 9 Lacey Perdue MD [facility] [phone] Referring Physician Infectious Diseases 06/28/18 documented as of this encounter
--- OUTSIDE RECORDS SUMMARY | 2024-11-23 00:30 | XMS_ITS | Encounter Summary ---
Author Organization [facility] Address [address] [place] [address] Care Team Providers Care Aviation Consultant Name Role Phone Coco Leos PA-C Primary Care Provider [phone] Denny Dey DO Unavailable [phone] Lacey Perdue MD Unavailable [phone] Encounter Details Date Type Department Care Team (Latest Contact Info) Description 10/17/2018 12:00 PM FURNACE COMBUSTION ANALYST - 10/17/2018 11:59 PM FURNACE COMBUSTION ANALYST Hospital Encounter [facility] [address] [place] [phone] Encounter for long-term (current) use of antibiotics; [...] of Assessment Author No 10/25/2017 2:00 PM FURNACE COMBUSTION ANALYST Galvan, Am y S, OVERLAY OPERATOR * Do you have serious difficulty [...] Date/Time Associated Diagnosis Comments SEDIMENTATION RATE Routine 10/17/2018 12 :00 PM FURNACE COMBUSTION ANALYST Encounter for long-term (current) use of antibiotics Primary localized osteoarthrosis CBC AND DIFFERENTIAL Routine 10/17/2018 12:00 PM FURNACE COMBUSTION ANALYST Encounter for long-term (current) use of antibiotics Primary localized osteoarthrosis C-REACTIVE PROTEIN Routine 10/17/2018 12 :00 PM FURNACE COMBUSTION ANALYST Encounter for long-term (current) use of antibiotics Primary localized osteoarthrosis VANCOMYCIN, TROUGH Routine 10/17/2018 12 :00 PM FURNACE COMBUSTION ANALYST Encounter for long-term (current) use of antibiotics Primary localized osteoarthrosis COMPREHENSIVE METABOLIC PANEL Routine 10/17/2018 12:00 PM FURNACE COMBUSTION ANALYST Encounter for long-term (current) use of antibiotics Primary localized osteoarthrosis documented in this encounter Results * (ABNORMAL) C-reactive protein (10/17/2018 12:00 PM FURNACE COMBUSTION ANALYST) CRP <0.20(L) 0.2 - 0.9 mg/dL [facility] [employer] [facility] Blood specimen (specimen) 10/17/2018 12:00 PM FURNACE COMBUSTION ANALYST 10/17/2018 1:32 PM FURNACE COMBUSTION ANALYST us Lacey Perdue MD LAB BLOOD ORDERABLES Final R esult [facility] [address] [place], [place] * (ABNORMAL) Comprehensive metabolic panel (10/17/2018 12:00 PM FURNACE COMBUSTION ANALYST) Sodium 142 136 - 145 mmol/L [facility] Potassium 3.8 3.5 - 5.1 mmol/L [facility] [employer] [facility] Chloride 104 98 - 107 mmol/L [facility] CO2 26 21 - 32 mmol/L [facility] [employer] [facility] Glucose 125(H) 74 - 106 mg/dL [facility] BUN 11 7.0 - 18.0 mg/dL [facility] [employer] [facility] Creatinine 1.01 0.70 - 1.30 mg/dL [facility] [employer] [facility] Calcium 9.0 8.5 - 10.1 mg/dL [facility] [employer] [facility] Total Protein 7.1 6.4 - 8.2 g/dL [facility] Albumin 3.8 3.4 - 5.0 g/dL [facility] Bilirubin Total 0.5 0.2 - 1.0 mg/dL [facility] [employer] [facility] Alkaline Phosphatase 94 56 - 119 U/L [facility] [employer] [facility] AST 60(H) 15 - 37 U/L [facility] [employer] [facility] ALT 75 12 - 78 U/L [facility] [employer] [facility] Creatinine Based eGFR >60 [facility] [facility] Comment: GFR REFERENCE RANGE: >60 mL/min/1.73m2 -- An eGFR of > than, or = to 60, may indicate normal renal function or mildly decreased GFR. EGFR /Greenlandic >60 [facility] [employer] [facility] Comment: -- An eGFR of > than, or = to 60, may indicate normal renal function or mildly decreased GFR. Blood specimen (specimen) 10/17/2018 12:00 PM FURNACE COMBUSTION ANALYST 10/17/2018 1:32 PM FURNACE COMBUSTION ANALYST us Lacey Perdue MD LAB BLOOD ORDERABLES Final R esult [facility] [employer] [facility] [employer] [address] [place] * CBC and differential (10/17/2018 12:00 PM FURNACE COMBUSTION ANALYST) WBC 6.38 4.00 - 11.00 th/mm3 [facility] RBC 5.17 4.50 - 6.50 mill/mm3 [facility] HGB 15.2 13.8 - 18.0 g/dL [facility] HCT 45.3 40.0 - 54.0 % [facility] MCV 87.6 76 - [address] [facility] MCH 29.4 27.0 - 32.[address] [facility] MCHC 33.6 30.0 - 35.0 g/dL [facility] Platelets 175 135 - 470 th/mm3 [facility] RDW 13.2 11.0 - 17.0 % [facility] MPV 10.4 8.0 - 12.[address] [facility] Differential Type AUTOMATED DIFFERENTIAL [facility] Neutrophil % 58.0 45.0 - 75.0 % [facility] Lymphocytes % 27.4 20.0 - 45.0 % [facility] Monocyte % 10.0 0.0 - 10.0 % [facility] Eosinophils Relative % 4.1 0.0 - 5.0 % [facility] Basophils % 0.3 0.0 - 2.0 % [facility] Immature Granulocytes% 0.2 0.0 - 1.6 % [facility] Neutrophils Absolute 3.70 2.00 - 7.900 th/mm3 [facility] Lymphocytes Absolute 1.75 1.00 - 4.00 th/mm3 [facility] Monos Absolute 0.64 0.0 - 0.80 th/mm3 [facility] Eosinophils Absolute Count 0.26 0.00 - 0.40 th/mm3 [facility] Basophils Absolute 0.02 0.00 - 0.10 th/mm3 [facility] Immature Granulocytes Absolute 0.01 0.0 - 0.20 th/mm3 [facility] Blood specimen (specimen) BLOOD SPECIMEN / Unknown 10/17/2018 12:00 PM FURNACE COMBUSTION ANALYST 10/17/2018 1:32 PM FURNACE COMBUSTION ANALYST us Lacey Perdue MD LAB BLOOD ORDERABLES Edited Result - Final [facility] [address] [place], [place] * (ABNORMAL) Vancomycin, trough (10/17/2018 12:00 PM FURNACE COMBUSTION ANALYST) Vancomycin Trough 12.0(H) 5.0 - 10.0 mcg/mL [facility] Blood specimen (specimen) 10/17/2018 12:00 PM FURNACE COMBUSTION ANALYST 10/17/2018 1:32 PM FURNACE COMBUSTION ANALYST us Lacey Perdue MD LAB BLOOD ORDERABLES Final R esult [facility] [address] [place], [place] * (ABNORMAL) Sedimentation rate (10/17/2018 12:00 PM FURNACE COMBUSTION ANALYST) Sedimentation Rate 31(H) 0 - 20 mm/hr [facility] Blood specimen (specimen) 10/17/2018 12:00 PM FURNACE COMBUSTION ANALYST 10/17/2018 1:32 PM FURNACE COMBUSTION ANALYST us Lacey Perdue MD LAB BLOOD ORDERABLES Final R esult [facility] [address] [place], [place] documented in this encounter Visit Diagnoses Diagnosis Encounter for long-term (current) use of antibiotics Primary localized osteoarthrosis Primary localized osteoarthrosis, unspecified site documented in this encounter Care Teams Aviation Consultant Relationship Specialty Start Date End Date Coco Leos PA-C [address] [place] [id number] PCP - General Physician Weigher And Mixer 10/25/17 11/24/18 Denny Dey DO [address] [place] [address] Referring Physician Orthopedic Surgery 06/28/18 9 Lacey Perdue MD [address] [phone] Referring Physician Infectious Diseases 06/28/18 documented as of this encounter
--- OUTSIDE RECORDS SUMMARY | 2024-11-23 00:30 | XMS_ITS | Encounter Summary ---
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); Encounter for screening colonoscopy Social History Tobacco Use Types Packs/Day Years [...] Reading Time Taken Comments Blood Pressure 118/78 11/18/2018 9:34 AM GLASS BREAKER Pulse 73 11/18/2018 9:34 AM GLASS BREAKER Temperature 36.4 ??C (97.5 ??F) 11/18/2018 9:34 AM CS T Respiratory Rate - - Oxygen Saturation 97% 11/18/2018 9:34 AM GLASS BREAKER Inhaled Oxygen Concentration - - Weight 89 kg (196 lb 4.8 oz) 11/18/2018 9:34 AM GLASS BREAKER Height 180.3 cm (5' 10.98 ) 11/18/2018 9:[address] Body Mass Index 27.39 11/18/2018 9:34 AM GLASS BREAKER documented in this encounter Functional Status * Are you deaf or do you have serious difficulty hearing? Answer Date of Assessment Author No 10/25/2017 2:00 PM GLASS BREAKER Deonna Galvan y S, RAG SORTER AND CUTTER * Are you blind or do you have serious difficulty seeing, even when wearing glasses? Answer Date of Assessment Author No 10/25/2017 2:00 PM GLASS BREAKER Deonna Galvan y S, RAG SORTER AND CUTTER * Do you have serious difficulty walking or climbing stairs? (5 years old or older) Answer Date of Assessment Author No 10/25/2017 2:00 PM GLASS BREAKER Deonna Galvan y S, RAG SORTER AND CUTTER * Do you have difficulty dressing or bathing? (5 years old or older) Answer Date of Assessment Author No 10/25/2017 2:00 PM GLASS BREAKER Cole Am y S, RAG SORTER AND CUTTER * Because of a physical, mental, or emotional condition, do you have difficulty doing errands alone such as visiting a doctor's office or shopping? (15 years old or older) Answer Date of Assessment Author No 10/25/2017 2:00 PM GLASS BREAKER Cole Am y S, RAG SORTER AND CUTTER documented as of this encounter Mental Status * Because of a physical, mental, or emotional condition, do you have serious difficulty concentrating, remembering, or making decisions? (5 years old or older) Answer Entry Date Author No 10/25/2017 2:00 PM JOHN Galvan Am y S, RAG SORTER AND CUTTER documented in this encounter Patient Instructions * Patient Instructions* Leonard Jasso APNP - 11/18/2018 9:45 AM GLASS BREAKER Follow up in one month for referral to Surgeon at [facility] for colonoscopy. History of polyps and you need proper monitoring. Continue current treatment of right ankle wound and follow directions of wound clinic exactly. Keepsite clean and avoid picking. S BREAKER documented in this encounter Progress Notes * Leonard Jasso APNP - 11/18/2018 9:45 AM CST Chief Complaint Patient presents with ??? Follow-up Subjective: Patient ID: Edilberto Hawley is a 63 y.o. male. Pt. presents for follow up. Patient was recently seen by Dr. Robles, [place] community education specialist. Patient's current concerns/issues at that time was he walks with a limp. The wound appeared tohave 90% more granulation tissue but there still remains a small area not covered with granulation tissue over the peroneal tendon. There are no other signs of infections at this time. The orthopedicspecialist did discuss partial thickness skin grafting and that there is a chance of failure due tothe skin graft not taking to the wound. Especially, in the area of the tendon. Would still like to proceed with the skin graft. Does understand that he would be placed in a cast and the wound would not be seen for 2 weeks after surgery. Patient previously was not interested in skin graft but appears to believe it is the best way to achieve healing of his right ankle wound at this time. Patient is also interested in getting a screening colonoscopy to optimize his health. History provided by: Patient Patient's problem list, [...] for wound (Right lower extremity lateral malleous. 3cm wide 5.5cm long. Eschar tissue noted. No drainage. ). Negative for rash. Allergic/Immunologic: Negative for environmental allergies and food allergies. Neurological: Negative for dizziness, tremors, speech difficulty, weakness and headaches. Psychiatric/Behavioral: Negative for agitation and behavioral problems. All other systems reviewed and are negative. Objective: BP 118/78 (BP Location: RUE, BP Position: sitting, BP Cuff Size: Reg) Pulse 73 Temp 36.4 ??C (97.5 ??F) (Tympanic) Ht 1.803 m (5' 10.98 ) Wt 89 kg (196 lb 4.8 oz) SpO2 97% BMI 27.39 kg/m?? Body mass index is 27.39 kg/m??. Physical Exam Constitutional: He is oriented [...] Diagnoses and all orders for this visit: Staphylococcal arthritis of right ankle (HCC) Encounter for screening colonoscopy Plan: Follow up in one month for referral to Surgeon at [facility] for colonoscopy. History of polyps and you need proper monitoring. Continue current treatment of right ankle wound and follow directions of wound clinic exactly. Keepsite clean and avoid picking. S BREAKER documented in this encounter Plan of Treatment Not on file documented as of this encounter Goals Goal Patient Goal Type Associated Problems Recent Progress Patient-Stated? Author Blood Pressure < 140/90 Blood Pressure 134/86(2022 2:25 PM CDT) No Wasielewski, Leonard W, SOFTWARE TESTING SPECIALIST documented as of this encounter Visit Diagnoses Diagnosis Staphylococcal arthritis of right ankle- Primary Encounter for screening colonoscopy Special screening for malignant neoplasms, colon documented in this encounter Care Teams Asset Specialist Relationship Specialty Start Date End Date Coco Leos PA-C [address] [place] [address] PCP - General Physician Radiology Practitioner Assistant 10/25/17 11/24/18 Denny Dey DO [address] [place] [address] Referring Physician Orthopedic Surgery 06/28/18 9 Lacey Perdue MD [address] [phone] Referring Physician Infectious Diseases 06/28/18 documented as of this encounter
--- OUTSIDE RECORDS SUMMARY | 2024-11-23 00:30 | XMS_ITS | Encounter Summary ---
Author Organization [employer] Address [address] [place] [address] Care Team Providers Care Materials Assistant Name Role Phone RobertbetoGraceCoco Katt WISE Primary Care Provider [phone] Denny Dey DO Unavailable [phone] Lacey Perdue MD Unavailable [phone] Encounter Details Date Type Department Care Team (Latest Contact Info) Description 10/15/2018 Transcribe Orders [facility] [address] [place] [address] Lacey Perdue MD [address] [address] Encounter for long-term (current) use [...] Assessment Author No 10/25/2017 2:00 PM DIRECT SUPPORT SPECIALIST Deonna Galvan, GEORGE * Are you blind [...] * (ABNORMAL) Vancomycin, trough (10/15/2018 7:00 AM DIRECT SUPPORT SPECIALIST) Pathologist [facility] Vancomycin Trough 20.4(H) 5.0 - 10.0 mcg/mL [facility] Blood specimen (specimen) 10/15/2018 7:00 AM DIRECT SUPPORT SPECIALIST 10/15/2018 7:57 AM DIRECT SUPPORT SPECIALIST us Lacey Perdue MD LAB BLOOD ORDERABLES Final R esult [facility] [address] [place], [place] * (ABNORMAL) Basic metabolic panel (10/15/2018 7:00 AM DIRECT SUPPORT SPECIALIST) Sodium 142 136 - 145 mmol/L [facility] Potassium 3.9 3.5 - 5.1 mmol/L [facility] [employer] [facility] Chloride 102 98 - 107 mmol/L [facility] [employer] [facility] CO2 29 21 - 32 mmol/L [facility] Glucose 121(H) 74 - 106 mg/dL [facility] [employer] [facility] BUN 12 7.0 - 18.0 mg/dL [facility] [employer] [facility] Creatinine 0.95 0.70 - 1.30 mg/dL [facility] [employer] [facility] Calcium 9.7 8.5 - 10.1 mg/dL [facility] [employer] [facility] Creatinine Based eGFR >60 [facility] Comment: GFR REFERENCE RANGE: >60 mL/min/1.73m2 -- An eGFR of > than, or = to 60, may indicate normal renal function or mildly decreased GFR. EGFR /Karla n >60 [facility] Comment: -- An eGFR of > than, or = to 60, may indicate normal renal function or mildly decreased GFR. Blood specimen (specimen) 10/15/2018 7:00 AM DIRECT SUPPORT SPECIALIST 10/15/2018 7:57 AM DIRECT SUPPORT SPECIALIST us Lacey Perdue MD LAB BLOOD ORDERABLES Final R esult [facility] [address] [place], [place] documented in this encounter Visit Diagnoses Diagnosis Encounter for long-term (current) use of antibiotics- Primary Primary localized osteoarthrosis Primary localized osteoarthrosis, unspecified site documented in this encounter Care Teams Materials Assistant Relationship Specialty Start Date End Date Coco Leos PA-C [address] [place] [address] PCP - General Physician Exhibition Carver 10/25/17 11/24/18 Denny Dey DO [address] [place] [address] Referring Physician Orthopedic Surgery 06/28/18 9 Lacey Perdue MD [address] [phone] Referring Physician Infectious Diseases 06/28/18 documented as of this encounter
--- OUTSIDE RECORDS SUMMARY | 2024-11-23 00:30 | XMS_ITS | Encounter Summary ---
Author Organization [employer] Address [address] [place] [address] Care Team Providers Care Brokerage Manager Name Role Phone RobertbetoTatianae Katt WISE Primary Care Provider [phone] Denny Dey DO Unavailable [phone] Lacey Perdue MD Unavailable [phone] Leonard Jasso APRN Primary Care Provide r Reason for Visit * Reason Comments Medication Refill Encounter Details Date Type Department Care Team (Late st Contact Info) Description 11/23/[address] [address] Leonard Jasso APRN [address] [place] [address] Social History Tobacco Use Types Packs/Day [...] of Assessment Author No 10/25/2017 2:00 PM TECHNICAL STENOGRAPHER Deonna Galvan, GEORGE * Are you blind or do you have serious difficulty seeing, even when wearing glasses? Answer Date of Assessment Author No 10/25/2017 2:00 PM Deonna Padilla S, CERTIFIED HEALTH EDUCATION SPECIALIST * Do you have serious difficulty walking or climbing stairs? (5 years old or older) Answer Date of Assessment Author No 10/25/2017 2:00 PM JOHN Galvan Am y S, CERTIFIED HEALTH EDUCATION SPECIALIST * Do you have difficulty dressing or bathing? (5 years old or older) Answer Date of Assessment Author No 10/25/2017 2:00 PM Deonna Padilla S, CERTIFIED HEALTH EDUCATION SPECIALIST * Because of a physical, mental, or emotional condition, do you have difficulty doing errands alone such as visiting a doctor's office or shopping? (15 years old or older) Answer Date of Assessment Author No 10/25/2017 2:00 PM Deonna Padilla, CERTIFIED HEALTH EDUCATION SPECIALIST documented as of this encounter Mental Status * Because of a physical, mental, or emotional condition, do you have serious difficulty concentrating, remembering, or making decisions? (5 years old or older) Answer Entry Date Author No 10/25/2017 2:00 PM Deonna Padilla, CERTIFIED HEALTH EDUCATION SPECIALIST documented in this encounter Plan of Treatment Not on file documented as of this encounter Goals Goal Patient Goal Type Associated Problems Recent Progress Patient-Stated? Author Blood Pressure < 140/90 Blood Pressure 134/86(2022 2:25 PM CDT) No Leonard Jasso APRN documented as of this encounter Visit Diagnoses Not on filedocumented in this encounter Care Teams Brokerage Manager Relationship Specialty Start Date End Date Coco Leos PA-C [address] [place] [address] PCP - General Physician Backpackers Manager 10/25/17 11/24/18 Leonard Jasso APRN [address] [place] [address] PCP - General Family Medicine 11/25/18 08/14/19 Denny Dey DO [address] [place], [place] [address] Referring Physician Orthopedic Surgery 06/28/18 9 Lacey Perdue MD [facility] [phone] Referring Physician Infectious Diseases 06/28/18 documented as of this encounter
--- OUTSIDE RECORDS SUMMARY | 2024-11-23 00:30 | XMS_ITS | Encounter Summary ---
Author Organization [employer] Address [address] [place] [address] Care Team Providers Care Career And Transition Teacher Name Role Phone RobertbetoGraceCoco Katt WISE Primary Care Provider [phone] Denny Dey DO Unavailable [phone] Lacey Perdue MD Unavailable [phone] Encounter Details Date Type Department Care Team (Latest Contact Info) Description 11/04/2018 Transcribe Orders [facility] [address] [place] [address] Lacey Perdue MD [address] [address] Encounter for long-term (current) [...] of Assessment Author No 10/25/2017 2:00 PM DIESEL TRUCK TECHNICIAN Deonna Galvan, GEORGE * Are you blind [...] this encounter Results * (ABNORMAL) Vancomycin, trough (11/04/2018 11:45 AM DIESEL TRUCK TECHNICIAN) Vancomycin Trough 10.1(H) 5.0 - 10.0 mcg/mL 11/04/2018 1:02 PM DIESEL TRUCK TECHNICIAN [facility] Serum specimen (specimen) 11/04/2018 11:45 AM DIESEL TRUCK TECHNICIAN 11/04/2018 12:23 PM DIESEL TRUCK TECHNICIAN us Lacey Perdue MD LAB BLOOD ORDERABLES Final R esult [facility] [address] [place], [place] * (ABNORMAL) Basic metabolic panel (11/04/2018 11:45 AM DIESEL TRUCK TECHNICIAN) Sodium 141 136 - 145 mmol/L 11/04/2018 1:02 PM [facility] Potassium 4.0 3.5 - 5.1 mmol/L 11/04/2018 1:02 PM [facility] Chloride 106 98 - 107 mmol/L 11/04/2018 1:02 PM [facility] CO2 26 21 - 32 mmol/L 11/04/2018 1:02 PM [facility] [employer] [facility] Glucose 122(H) 74 - 106 mg/dL 11/04/2018 1:02 PM [facility] BUN 20(H) 7.0 - 18.0 mg/dL 11/04/2018 1:02 PM [facility] Creatinine 0.96 0.70 - 1.30 mg/dL 11/04/2018 1:02 PM [facility] Calcium 9.3 8.5 - 10.1 mg/dL 11/04/2018 1:02 PM [facility] Creatinine Based eGFR >60 11/04/2018 1:02 PM [facility] Comment: GFR REFERENCE RANGE: >60 mL/min/1.73m2 -- An eGFR of > than, or = to 60, may indicate normal renal function or mildly decreased GFR. EGFR /Karla n >60 11/04/2018 1:02 PM [facility] Comment: -- An eGFR of > than, or = to 60, may indicate normal renal function or mildly decreased GFR. Serum specimen (specimen) 11/04/2018 11:45 AM DIESEL TRUCK TECHNICIAN 11/04/2018 12:23 PM [facility] us Lacey Perdue MD LAB BLOOD ORDERABLES Final R esult [facility] [address] [place], [place] documented in this encounter Visit Diagnoses Diagnosis Encounter for long-term (current) use of antibiotics- Primary Primary localized osteoarthrosis Primary localized osteoarthrosis, unspecified site documented in this encounter Care Teams Career And Transition Teacher Relationship Specialty Start Date End Date Coco Leos PA-C [address] [place] [address] PCP - General Physician Fraud Representative 10/25/17 11/24/18 Denny Dey DO [address] [place] [address] Referring Physician Orthopedic Surgery 06/28/18 9 Lacey Perdue MD [address] [phone] Referring Physician Infectious Diseases 06/28/18 documented as of this encounter
--- OUTSIDE RECORDS SUMMARY | 2024-11-23 00:30 | XMS_ITS | Encounter Summary ---
Author Organization [employer] Address [address] [place] [address] Care Team Providers Care Office Clerk Assistant Name Role Phone Denny Dey DO Unavailable [phone] Lacey Perdue MD Unavailable Leonard Jasso APRN Primary Care Provide r Reason for Visit * Reason Onset Date Comments Colonoscopy 12/02/2018 I attempted to c ontact patient regarding his upcoming Colonoscopy. Encounter Details Date Type Department Care Team ([facility] Contact Info) Description 12/02/2018 Telephone [facility] Surgery [address] [facility], [address] [place] [address] Zenaida Clifton, RN [address] [place] [address] [place] [phone] Colonoscopy (I attempted to contact patient regarding his upcoming Colonoscopy.) Social History Tobacco Use Types Packs/Day Years [...] Assessment Author No 10/25/2017 2:00 PM CLINICAL REGISTERED NURSE Galvan, Am y S, SUPERVISOR LIQUEFACTION * Are you blind or do you have serious difficulty seeing, even when wearing glasses? Answer Date of Assessment Author No 10/25/2017 2:00 PM CLINICAL REGISTERED NURSE Galvan, Am y S, SUPERVISOR LIQUEFACTION * Do you have serious difficulty walking or climbing stairs? (5 years old or older) Answer Date of Assessment Author No 10/25/2017 2:00 PM CLINICAL REGISTERED NURSE Galvan, Am y S, SUPERVISOR LIQUEFACTION * Do you have difficulty dressing or bathing? (5 years old or older) Answer Date of Assessment Author No 10/25/2017 2:00 PM CLINICAL REGISTERED NURSE Galvan, Nessa my S, SUPERVISOR LIQUEFACTION * Because of a physical, mental, or emotional condition, do you have difficulty doing errands alone such as visiting a doctor's office or shopping? (15 years old or older) Answer Date of Assessment Author No 10/25/2017 2:00 PM CLINICAL REGISTERED NURSE Galvan, Am y S, SUPERVISOR LIQUEFACTION documented as of this encounter Mental Status * Because of a physical, mental, or emotional condition, do you have serious difficulty concentrating, remembering, or making decisions? (5 years old or older) Answer Entry Date Author No 10/25/2017 2:00 PM CLINICAL REGISTERED NURSE Galvan, Am y S, SUPERVISOR LIQUEFACTION documented in this encounter Miscellaneous Notes * Telephone Encounter - Zenaida Clifton RN - 12/02/2018 11:31 AM CLINICAL REGISTERED NURSE Pt called back for date/time of colonoscopy. He stated Wednesday this week would work fine for him.He will be coming to [place] this afternoon to fruit picker machine operator his prep. ICAL REGISTERED NURSE * Telephone Encounter - Zenaida Clifton RN - 12/02/2018 10:03 AM CLINICAL REGISTERED NURSE I attempted to contact the patient to discuss his upcoming Colonoscopy. I had advised him I would call him with date/time when precert was complete. I left a message on his answering machine to call me as soon as convenient. ICAL REGISTERED NURSE documented in this encounter Plan of Treatment Not on file documented as of this encounter Goals Goal Patient Goal Type Associated Problems Recent Progress Patient-Stated? Author Blood Pressure < 140/90 Blood Pressure 134/86(2022 2:25 PM CDT) No Leonard Jasso APRN documented as of this encounter Visit Diagnoses Not on filedocumented in this encounter Care Teams Office Clerk Assistant Relationship Specialty Start Date End Date Leonard Jasso APRN [address] [place] [address] PCP - General Family Medicine 11/25/18 08/14/19 Denny Dey DO Referring Physician Orthopedic Surgery 06/28/18 9 Lacey Perdue MD [address] [phone] Referring Physician Infectious Diseases 06/28/18 documented as of this encounter
--- OUTSIDE RECORDS SUMMARY | 2024-11-23 00:30 | XMS_ITS | Encounter Summary ---
Author Organization [employer] Address [address] [place] [address] Care Team Providers Care Bolter Helper Name Role Phone Denny Dey DO Unavailable [phone] Lacey Perdue MD Unavailable [phone] Leonard Jasso APRN Primary Care Provide r Reason for Visit * Reason Comments Medication Refill Encounter Details Date Type Department Care Team (Late st Contact Info) Description 11/25/[address] [address] Leonard Jasso APRN [facility] [place] [address] Social History Tobacco Use Types [...] of Assessment Author No 10/25/2017 2:00 PM LINE RUNNER Galvan, Am y S, SEWER DIGGER * Do you have serious difficulty walking or climbing stairs? (5 years old or older) Answer Date of Assessment Author No 10/25/2017 2:00 PM JOHN Galvan Am y S, SEWER DIGGER * Do you have difficulty dressing or bathing? (5 years old or older) Answer Date of Assessment Author No 10/25/2017 2:00 PM LINE RUNNER Deonna Galvan y S, SEWER DIGGER * Because of a physical, mental, or emotional condition, do you have difficulty doing errands alone such as visiting a doctor's office or shopping? (15 years old or older) Answer Date of Assessment Author No 10/25/2017 2:00 PM JOHN Galvan Am y S, SEWER DIGGER documented as of this encounter Mental Status * Because of a physical, mental, or emotional condition, do you have serious difficulty concentrating, remembering, or making decisions? (5 years old or older) Answer Entry Date Author No 10/25/2017 2:00 PM Deonna Padilla S, SEWER DIGGER documented in this encounter Plan of Treatment Not on file documented as of this encounter Goals Goal Patient Goal Type Associated Problems Recent Progress Patient-Stated? Author Blood Pressure < 140/90 Blood Pressure 134/86(2022 2:25 PM CDT) No Leonard Jasso APRN documented as of this encounter Visit Diagnoses Not on filedocumented in this encounter Care Teams Bolter Helper Relationship Specialty Start Date End Date Leonard Jasso APRN [address] [place] [address] PCP - General Family Medicine 11/25/18 08/14/19 Denny Dey DO Referring Physician Orthopedic Surgery 06/28/18 9 Lacey Perdue MD [address] [phone] Referring Physician Infectious Diseases 06/28/18 documented as of this encounter
--- OUTSIDE RECORDS SUMMARY | 2024-11-23 00:30 | XMS_ITS | Encounter Summary ---
Author Organization [employer] Address [address] [place] [address] Care Team Providers Care Cloth Printer Name Role Phone Coco Leos PA-C Primary Care Provider [phone] Denny Dey DO Unavailable [phone] Lacey Perdue MD Unavailable [phone] Encounter Details Date Type Department Care Team (Latest Contact Info) Description 10/07/2018 9:00 AM EXERCISE RIDER - 10/07/2018 11:59 PM EXERCISE RIDER Hospital Encounter [facility] [address] [place] [phone] Encounter for long-term (current) use of antibiotics; [...] of Assessment Author No 10/25/2017 2:00 PM EXERCISE RIDER Galvan, Am y S, DIRECTOR OF PRODUCT DESIGN * Do you have serious difficulty walking [...] Date/Time Associated Diagnosis Comments VANCOMYCIN, TROUGH Routine 10/07/2018 9: 00 AM EXERCISE RIDER Encounter for long-term (current) use of antibiotics Primary localized osteoarthrosis BASIC METABOLIC PANEL Routine 10/07/2018 9:00 AM EXERCISE RIDER Encounter for long-term (current) use of antibiotics Primary localized osteoarthrosis documented in this encounter Results * (ABNORMAL) Basic metabolic panel (10/07/2018 9:00 AM EXERCISE RIDER) Sodium 138 136 - 145 mmol/L [facility] Potassium 4.2 3.5 - 5.1 mmol/L [facility] Chloride 104 98 - 107 mmol/L [facility] CO2 27 21 - 32 mmol/L [facility] Glucose 108(H) 74 - 106 mg/dL [facility] BUN 14 7.0 - 18.0 mg/dL [facility] Creatinine 0.98 0.70 - 1.30 mg/dL [facility] Calcium 8.9 8.5 - 10.1 mg/dL [facility] Creatinine Based eGFR >60 [facility] Comment: GFR REFERENCE RANGE: >60 mL/min/1.73m2 -- An eGFR of > than, or = to 60, may indicate normal renal function or mildly decreased GFR. EGFR /Karla n >60 [facility] Comment: -- An eGFR of > than, or = to 60, may indicate normal renal function or mildly decreased GFR. Blood specimen (specimen) 10/07/2018 9:00 AM EXERCISE RIDER 10/07/2018 9:51 AM EXERCISE RIDER us Lacey Perdue MD LAB BLOOD ORDERABLES Final R esult [facility] [address] [place], [place] [phone] * (ABNORMAL) Vancomycin, trough (10/07/2018 9:00 AM EXERCISE RIDER) Vancomycin Trough 19.9(H) 5.0 - 10.0 mcg/mL [facility] Blood specimen (specimen) 10/07/2018 9:00 AM EXERCISE RIDER 10/07/2018 9:51 AM EXERCISE RIDER us Lacey Perdue MD LAB BLOOD ORDERABLES Final R esult Performing Organization Address City/[facility]/ZIP Co de Phone Number [facility] [facility] [address] [place], [place] [phone] documented in this encounter Visit Diagnoses Diagnosis Encounter for long-term (current) use of antibiotics Primary localized osteoarthrosis Primary localized osteoarthrosis, unspecified site documented in this encounter Care Teams Cloth Printer Relationship Specialty Start Date End Date Coco Leos PA-C [address] [place] [address] PCP - General Physician Supervisor Cytology 10/25/17 11/24/18 Denny Dey DO [address] [place] [address] Referring Physician Orthopedic Surgery 06/28/18 9 Lacey Perdue MD [address] [place] [phone] Referring Physician Infectious Diseases 06/28/18 documented as of this encounter
--- OUTSIDE RECORDS SUMMARY | 2024-11-23 00:31 | XMS_ITS | Encounter Summary ---
Author Organization [employer] Address [address] [place] [address] Care Team Providers Care Concrete Placement Equipment Operator Name Role Phone Coco Leos PA-C Primary Care Provider [phone] Denny Dey DO Unavailable [phone] Lacey Perdue MD Unavailable [phone] Encounter Details Date Type Department Care Team (Late st Contact Info) Description 08/09/2018 Orders Only [facility] [address] [place], [place] [phone] Leonard Jasso, GLOVE MACHINE OPERATOR [address] [place], [place] [phone] Social History Tobacco Use Types Packs/Day Years [...] of Assessment Author No 10/25/2017 2:00 PM PANAMA HAT SMEARER Galvan, Am y S, PAPER MACHINE BACK TENDER * Do you have serious difficulty walking or climbing stairs? (5 years old or older) Answer Date of Assessment Author No 10/25/2017 2:00 PM PANAMA HAT SMEARER Deonna Galvan y S, PAPER MACHINE BACK TENDER * Do you have difficulty dressing or bathing? (5 years old or older) Answer Date of Assessment Author No 10/25/2017 2:00 PM PANAMA HAT SMEARER Cole Am y S, PAPER MACHINE BACK TENDER * Because of a physical, mental, or emotional condition, do you have difficulty doing errands alone such as visiting a doctor's office or shopping? (15 years old or older) Answer Date of Assessment Author No 10/25/2017 2:00 PM PANAMA HAT SMEARER Cole Am y S, PAPER MACHINE BACK TENDER documented as of this encounter Mental Status * Because of a physical, mental, or emotional condition, do you have serious difficulty concentrating, remembering, or making decisions? (5 years old or older) Answer Entry Date Author No 10/25/2017 2:00 PM PANAMA HAT SMEARER Deonna Galvan y S, PAPER MACHINE BACK TENDER documented in this encounter Plan of Treatment Not on file documented as of this encounter Goals Goal Patient Goal Type Associated Problems Recent Progress Patient-Stated? Author Blood Pressure < 140/90 Blood Pressure 134/86(2022 2:25 PM CDT) No Leonard Jasso APRN documented as of this encounter Visit Diagnoses Not on filedocumented in this encounter Care Teams Concrete Placement Equipment Operator Relationship Specialty Start Date End Date Coco Leos PA-C [address] [place] [address] PCP - General Physician Glycerine Plant Operator 10/25/17 11/24/18 Denny Dey DO [address] [place] [address] Referring Physician Orthopedic Surgery 06/28/18 9 Lacey Perdue MD [address] [phone] Referring Physician Infectious Diseases 06/28/18 documented as of this encounter
--- OUTSIDE RECORDS SUMMARY | 2024-11-23 00:31 | XMS_ITS | Encounter Summary ---
Author Organization [employer] Address [address] [place] [address] Care Team Providers Care Polytechnic Teacher Name Role Phone Coco Leos PA-C Primary Care Provider [phone] Encounter Details Date Type Department Care Team (Latest Contact Info) Description 06/17/2018 Transcribe Orders [facility] [address] [place] [address] Lacey Perdue MD [address] [address] Cellulitis of right foot (Primary Dx); Encounter for long-term (current) use of antibiotics; Urinary tract infection, site not specified Social History Tobacco Use Types Packs/Day Years Used Date Smoking Tobacco: Former Alcohol Use Standard Drinks/Week Comments No 0 [...] of Assessment Author No 10/25/2017 2:00 PM SPRING MACHINE OPERATOR Galvan, Am y S, STEEL BOX TOE INSERTER * Do you have serious difficulty walking or climbing stairs? (5 years old or older) Answer Date of Assessment Author No 10/25/2017 2:00 PM Deonna Padilla, STEEL BOX TOE INSERTER * Do you have difficulty dressing or bathing? (5 years old or older) Answer Date of Assessment Author No 10/25/2017 2:00 PM Deonna Padilla, STEEL BOX TOE INSERTER * Because of a physical, mental, or emotional condition, do you have difficulty doing errands alone such as visiting a doctor's office or shopping? (15 years old or older) Answer Date of Assessment Author No 10/25/2017 2:00 PM Deonna Padilla, STEEL BOX TOE INSERTER documented as of this encounter Mental Status * Because of a physical, mental, or emotional condition, do you have serious difficulty concentrating, remembering, or making decisions? (5 years old or older) Answer Entry Date Author No 10/25/2017 2:00 PM Deonna Padilla, STEEL BOX TOE INSERTER documented in this encounter Plan of Treatment Not on file documented as of this encounter Results * (ABNORMAL) C-reactive protein (06/17/2018 12:45 PM CDT) CRP 2.00(H) 0.2 - 0.9 mg/dL [facility] Blood specimen (specimen) 06/17/2018 12:45 PM CDT 06/17/2018 2:26 PM CDT us Lacey Perdue MD LAB BLOOD ORDERABLES Final R esult [facility] [address] [place], [place] [phone] * (ABNORMAL) Sedimentation rate (06/17/2018 12:45 PM CDT) Sedimentation Rate 61(H) 0 - 20 mm/hr [facility] Blood specimen (specimen) 06/17/2018 12:45 PM CDT 06/17/2018 2:26 PM CDT us Lacey Perdue MD LAB BLOOD ORDERABLES Final R esult [facility] [address] [place], [place] [phone] * (ABNORMAL) Comprehensive metabolic panel (06/17/2018 12:45 PM CDT) Sodium 136 136 - 145 mmol/L [facility] Done In :60 [facility] Potassium 4.0 3.5 - 5.1 mmol/L [facility] Comment: (NOTE) SPECIMEN NOTE:SLIGHTLY HEMOLYZED CALLED TO: LIZBETH ZHANG @ [employer].06/17/18 1522 DCCR Chloride 102 98 - 107 mmol/L [facility] Meniga Done In :60 [facility] CO2 31 21 - 32 mmol/L [facility] Glucose 112(H) 74 - 106 mg/dL [facility] BUN 11 7.0 - 18.0 mg/dL [facility] Creatinine 1.02 0.70 - 1.30 mg/dL [facility] Calcium 9.1 8.5 - 10.1 mg/dL [facility] Total Protein 6.9 6.4 - 8.2 g/dL [facility] [employer] [facility] Albumin 3.5 3.4 - 5.0 g/dL [facility] [employer] [facility] Bilirubin Total 0.4 0.2 - 1.0 mg/dL [facility] [employer] [facility] Alkaline Phosphatase 93 56 - 119 U/L [facility] AST 30 15 - 37 U/L [facility] ALT 30 12 - 78 U/L [facility] Creatinine Based eGFR >60 [facility] Comment: GFR REFERENCE RANGE: >60 mL/min/1.73m2 -- An eGFR of > than, or = to 60, may indicate normal renal function or mildly decreased GFR. EGFR /Palestinian >60 [facility] Comment: -- An eGFR of > than, or = to 60, may indicate normal renal function or mildly decreased GFR. Blood specimen (specimen) 06/17/2018 12:45 PM CDT 06/17/2018 2:26 PM CDT us Lacey Perdue MD LAB BLOOD ORDERABLES Final R esult [facility] [address] [place], [place] [phone] * (ABNORMAL) CBC and differential (06/17/2018 12:45 PM CDT) WBC 4.65 4.00 - 11.00 th/mm3 [facility] RBC 4.29(L) 4.50 - 6.50 mill/mm3 [facility] [employer] [facility] HGB 12.9(L) 13.8 - 18.0 g/dL [facility] [employer] [facility] HCT 39.8(L) 40.0 - 54.0 % [facility] MCV 92.8 76 - 99 fL [facility] MCH 30.1 27.0 - 32.0 pg [facility] MCHC 32.4 30.0 - 35.0 g/dL [facility] Platelets 220 135 - 470 th/mm3 [facility] [employer] [facility] RDW-CV 41.6 34.9 - 51.3 fL [facility] MPV 9.9 8.0 - 12.5 fL [facility] Differential Type AUTOMATED DIFFERENTIAL [facility] Neutrophil % 42.2(L) 45.0 - 75.0 % [facility] Lymphocytes % 38.9 20.0 - 45.0 % [facility] Monocyte % 13.3(H) 0.0 - 10.0 % [facility] Eosinophils Relative % 5.2(H) 0.0 - 5.0 % [facility] Basophils % 0.4 0.0 - 2.0 % [facility] Immature Granulocytes% 0.0 0.0 - 1.6 % [facility] Neutrophils Absolute 1.96(L) 2.00 - 7.900 th/mm3 [facility] Lymphocytes Absolute 1.81 1.00 - 4.00 th/mm3 [facility] Monos Absolute 0.62 0.0 - 0.80 th/mm3 [facility] Eosinophils Absolute Count 0.24 0.00 - 0.40 th/mm3 [facility] Basophils Absolute 0.02 0.00 - 0.10 th/mm3 [facility] Immature Granulocytes Absolute 0.00 0.0 - 0.20 th/mm3 [facility] Blood specimen (specimen) BLOOD SPECIMEN / Unknown 06/17/2018 12:45 PM CDT 06/17/2018 2:26 PM CDT us Lacey Perdue MD LAB BLOOD ORDERABLES Final R esult [facility] [address] [place], [place] [phone] documented in this encounter Visit Diagnoses Diagnosis Cellulitis of right foot- Primary Cellulitis and abscess of foot, except toes Encounter for long-term (current) use of antibiotics Urinary tract infection, site not specified documented in this encounter Care Teams Polytechnic Teacher Relationship Specialty Start Date End Date Coco Leos PA-C [address] [place] [address] PCP - General Physician Shelf Drier Operator 10/25/17 11/24/18 documented as of this encounter
--- OUTSIDE RECORDS SUMMARY | 2024-11-23 00:31 | XMS_ITS | Encounter Summary ---
Author Organization [employer] Address [address] [place] [address] Care Team Providers Care Powdered Sugar Pulverizer Operator Name Role Phone Coco Leos PA-C Primary Care Provider [phone] Encounter Details Date Type Department Care Team (Latest Contact Info) Description 06/10/2018 12:12 PM CDT - 06/10/2018 11:59 PM CDT Hospital Encounter [facility] [address] [place] [address] Cellulitis of right foot; Antibiotic long-term use; Urinary tract infection; Encounter for fitting of portacath Discharge Disposition: Home - Discharge to Home [...] Discharge amitriptyline (ELAVIL) 75 MG tablet Take 75 mg by mouth nightly. 8 baclofen (LIORESAL) 10 MG tablet Take 10 mg by mouth nightly. 8 capsaicin (ZOSTRIX) 0.025 % cream Apply to back for pain control three times daily as needed. Avoid use on damaged, broken, or irritated skin, avoid occlusive 45 g 1 10/29/2017 8 DULoxetine (CYMBALTA) 30 MG capsule Take 1 capsule by mouth nightly. 30 capsule 1 10/29/2017 8 DULoxetine (CYMBALTA) 60 MG capsule Take 1 capsule by mouth daily. 30 capsule 1 10/30/2017 9 lidocaine (XYLOCAINE) 5 % ointment Apply topically 2 (two) times daily. 8 morphine (MS CONTIN) 30 MG extended release tablet Take 30 mg by mouth every 12 (twelve) hours. 06/08/2018 8 naloxone (NARCAN) 2 MG/2ML injection 2 mg by Nasal route as needed. 02/07/2018 8 oxyCODONE HCl ER (OXYCONTIN) 15 MG T12A 12 hr tablet Take 15 mg by mouth every 12 (twelve) hours. 8 oxyCODONE-acetam inophen (PERCOCET) 10-325 MG per tablet Take 1 tablet by mouth every 6 (six) hours as needed for Pain. 8 propranolol (INDERAL LA) 60 MG 24 hr capsule Take 60 mg by mouth daily. 8 tamsulosin HCl (FLOMAX) 0.4 MG capsule Take 0.4 mg by mouth daily. 05/02/2018 8 documented as of this encounter Plan of Treatment Not on file documented as of this encounter Procedures Procedure Name Priority Date/Time Associated Diagnosis Comments SEDIMENTATION RATE Routine 06/10/2018 11 :15 AM CDT Cellulitis of right foot Antibiotic long-term use Urinary tract infection Encounter for fitting of portacath CBC AND DIFFERENTIAL Routine 06/10/2018 11:15 AM CDT Cellulitis of right foot Antibiotic long-term use Urinary tract infection Encounter for fitting of portacath C-REACTIVE PROTEIN Routine 06/10/2018 11 :15 AM CDT Cellulitis of right foot Antibiotic long-term use Urinary tract infection Encounter for fitting of portacath COMPREHENSIVE METABOLIC PANEL Routine 06/10/2018 11:15 AM CDT Cellulitis of right foot Antibiotic long-term use Urinary tract infection Encounter for fitting of portacath documented in this encounter Results * (ABNORMAL) Sedimentation rate (06/10/2018 11:15 AM CDT) Sedimentation Rate 57(H) 0 - 20 mm/hr [facility] Blood specimen (specimen) 06/10/2018 11:15 AM CDT 06/10/2018 12:28 PM CDT us Lacey Perdue MD LAB BLOOD ORDERABLES Final R esult [facility] [address] [place] [address] * Comprehensive metabolic panel (06/10/2018 11:15 AM CDT) Sodium 137 136 - 145 mmol/L [facility] Potassium 4.3 3.5 - 5.1 mmol/L [facility] Chloride 103 98 - 107 mmol/L [facility] CO2 30 21 - 32 mmol/L [facility] Glucose 105 74 - 106 mg/dL [facility] BUN 11 7.0 - 18.0 mg/dL [facility] Creatinine 0.86 0.70 - 1.30 mg/dL [facility] Calcium 8.8 8.5 - 10.1 mg/dL [facility] Total Protein 6.9 6.4 - 8.2 g/dL [facility] Albumin 3.4 3.4 - 5.0 g/dL [facility] Bilirubin Total 0.3 0.2 - 1.0 mg/dL [facility] Dial2DoHAMiner [facility] Alkaline Phosphatase 95 56 - 119 U/L [facility] AST 17 15 - 37 U/L [facility] [employer] [facility] ALT 14 12 - 78 U/L [facility] [employer] [facility] Creatinine Based eGFR >60 [facility] [employer] [facility] Comment: GFR REFERENCE RANGE: >60 mL/min/1.73m2 -- An eGFR of > than, or = to 60, may indicate normal renal function or mildly decreased GFR. EGFR /Ecuadorean >60 [facility] Comment: -- An eGFR of > than, or = to 60, may indicate normal renal function or mildly decreased GFR. Blood specimen (specimen) 06/10/2018 11:15 AM CDT 06/10/2018 12:28 PM CDT us Lacey Perdue MD LAB BLOOD ORDERABLES Final R esult [facility] [address] [place], [place] [phone] * (ABNORMAL) CBC and differential (06/10/2018 11:15 AM CDT) WBC 5.89 4.00 - 11.00 th/mm3 [facility] RBC 4.29(L) 4.50 - 6.50 mill/mm3 [facility] HGB 13.0(L) 13.8 - 18.0 g/dL [facility] HCT 38.9(L) 40.0 - 54.0 % [facility] MCV 90.7 76 - [address] [facility] MCH 30.3 27.0 - 32.[address] [facility] MCHC 33.4 30.0 - 35.0 g/dL [facility] Platelets 193 135 - 470 th/mm3 [facility] RDW-CV 39.8 34.9 - 51.[address] [facility] MPV 9.9 8.0 - 12.[address] [facility] Differential Type AUTOMATED DIFFERENTIAL [facility] Neutrophil % 54.8 45.0 - 75.0 % [facility] Lymphocytes % 32.6 20.0 - 45.0 % [facility] Monocyte % 9.8 0.0 - 10.0 % [facility] Eosinophils Relative % 2.4 0.0 - 5.0 % [facility] Basophils % 0.2 0.0 - 2.0 % [facility] Immature Granulocytes% 0.2 0.0 - 1.6 % [facility] Neutrophils Absolute 3.23 2.00 - 7.900 th/mm3 [facility] Lymphocytes Absolute 1.92 1.00 - 4.00 th/mm3 [facility] Monos Absolute 0.58 0.0 - 0.80 th/mm3 [facility] Eosinophils Absolute Count 0.14 0.00 - 0.40 th/mm3 [facility] Basophils Absolute 0.01 0.00 - 0.10 th/mm3 [facility] Immature Granulocytes Absolute 0.01 0.0 - 0.20 th/mm3 [facility] Blood specimen (specimen) BLOOD SPECIMEN / Unknown 06/10/2018 11:15 AM CDT 06/10/2018 12:28 PM CDT Lacey Perdue MD LAB BLOOD ORDERABLES Final R esult [facility] [address] [place] [address] * C-reactive protein (06/10/2018 11:15 AM CDT) CRP 0.30 0.2 - 0.9 mg/dL [facility] Blood specimen (specimen) 06/10/2018 11:15 AM CDT 06/10/2018 12:28 PM CDT Lacey Perdue MD LAB BLOOD ORDERABLES Final R esult [facility] [address] [place], [place] [phone] documented in this encounter Visit Diagnoses Diagnosis Cellulitis of right foot Cellulitis and abscess of foot, except toes Antibiotic long-term use Encounter for long-term (current) use of antibiotics Urinary tract infection Urinary tract infection, site not specified Encounter for fitting of portacath Fitting and adjustment of vascular catheter documented in this encounter Care Teams Powdered Sugar Pulverizer Operator Relationship Specialty Start Date End Date Coco Leos PA-C [address] [place] [address] PCP - General Physician Picking Table Worker 10/25/17 11/24/18 documented as of this encounter
--- OUTSIDE RECORDS SUMMARY | 2024-11-23 00:31 | XMS_ITS | Encounter Summary ---
Author Organization [employer] Address [address] [place] [address] Care Team Providers Care Cider Maker Name Role Phone RobertbetoGraceCoco Katt WISE Primary Care Provider [phone] Denny Dey DO Unavailable [phone] Lacey Perdue MD Unavailable [phone] Encounter Details Date Type Department Care Team (Latest Contact Info) Description 09/26/2018 Transcribe Orders [facility] [address] [place] [address] Lacey Perdue MD [address] [phone] Encounter for long-term (current) use [...] of Assessment Author No 10/25/2017 2:00 PM TRIAGE REGISTERED NURSE Deonna Galvan, GEORGE * Are you blind [...] of this encounter Results * Vancomycin, trough (09/26/2018 10:10 AM TRIAGE REGISTERED NURSE) Pathologist [facility] Vancomycin Trough 8.7 5.0 - 10.0 mcg/mL [facility] Blood specimen (specimen) 09/26/2018 10:10 AM TRIAGE REGISTERED NURSE 09/26/2018 11:20 AM TRIAGE REGISTERED NURSE us Lacey Perdue MD LAB BLOOD ORDERABLES Final R esult [facility] [facility] [address] [place], [place] [phone] * Basic metabolic panel (09/26/2018 10:10 AM TRIAGE REGISTERED NURSE) Pathologist [facility] Sodium 140 136 - 145 mmol/L [facility] Right Hemisphere[facility] Potassium 4.2 3.5 - 5.1 mmol/L [facility] [employer] [facility] Chloride 101 98 - 107 mmol/L [facility] [employer] [facility] CO2 29 21 - 32 mmol/L [facility] Glucose 106 74 - 106 mg/dL [facility] [employer] [facility] BUN 14 7.0 - 18.0 mg/dL [facility] [employer] [facility] Creatinine 0.94 0.70 - 1.30 mg/dL [facility] [employer] [facility] Calcium 8.9 8.5 - 10.1 mg/dL [facility] [employer] [facility] Creatinine Based eGFR >60 [facility] Right Hem[facility] Comment: GFR REFERENCE RANGE: >60 mL/min/1.73m2 -- An eGFR of > than, or = to 60, may indicate normal renal function or mildly decreased GFR. EGFR /Karla n >[address] [facility] Right HemisphereQUEST [facility] Comment: -- An eGFR of > than, or = to 60, may indicate normal renal function or mildly decreased GFR. Blood specimen (specimen) 09/26/2018 10:10 AM TRIAGE REGISTERED NURSE 09/26/2018 11:20 AM TRIAGE REGISTERED NURSE us Lacey Perdue MD LAB BLOOD ORDERABLES Final R esult [facility] Right [facility] [address] [place], [place] [phone] documented in this encounter Visit Diagnoses Diagnosis Encounter for long-term (current) use of antibiotics- Primary Primary localized osteoarthrosis Primary localized osteoarthrosis, unspecified site documented in this encounter Care Teams Cider Maker Relationship Specialty Start Date End Date Coco Leos PA-C [address] [place] [address] PCP - General Physician Trash Man 10/25/17 11/24/18 Denny Dey DO [address] [place] [address] Referring Physician Orthopedic Surgery 06/28/18 9 Lacey Perdue MD [address] [phone] Referring Physician Infectious Diseases 06/28/18 documented as of this encounter
--- OUTSIDE RECORDS SUMMARY | 2024-11-23 00:31 | XMS_ITS | Encounter Summary ---
Author Organization [employer] Address [address] [place] [address] Care Team Providers Care Correctional Supervisor Name Role Phone Coco Leos PA-C Primary Care Provider [phone] Denny Dey DO Unavailable [phone] Lacey Perdue MD Unavailable [phone] Reason for Visit * Reason Onset Date Comments med refill 08/09/2018 Encounter Details Date Type Department Care Team (Late st Contact Info) Description 08/09/[address] [address] Yael Sim, BILINGUAL ELEMENTARY SCHOOL TEACHER [address] [facility] [address] [place], [place] [phone] med refill Social History Tobacco Use Types Packs/Day Years [...] of Assessment Author No 10/25/2017 2:00 PM GEL COATER Galvan, Am y S, REGISTRATION COORDINATOR * Do you have serious difficulty walking or climbing stairs? (5 years old or older) Answer Date of Assessment Author No 10/25/2017 2:00 PM Deonna Padilla S, REGISTRATION COORDINATOR * Do you have difficulty dressing or bathing? (5 years old or older) Answer Date of Assessment Author No 10/25/2017 2:00 PM Deonna Padilla S, REGISTRATION COORDINATOR * Because of a physical, mental, or emotional condition, do you have difficulty doing errands alone such as visiting a doctor's office or shopping? (15 years old or older) Answer Date of Assessment Author No 10/25/2017 2:00 PM JOHN Galvan Am y S, REGISTRATION COORDINATOR documented as of this encounter Mental Status * Because of a physical, mental, or emotional condition, do you have serious difficulty concentrating, remembering, or making decisions? (5 years old or older) Answer Entry Date Author No 10/25/2017 2:00 PM Deonna Padilla, REGISTRATION COORDINATOR documented in this encounter Miscellaneous Notes * Telephone Encounter - Yael iSm LPN - 08/09/2018 3:53 PM CDT Pt called pharmacy for medication refill. Notified pt that script was ready. Pt sts that he thinks he is going to go to [employer] for work et wanted to know if he had to see pcp monthly or every 3 months d/t controlled medication scripts. Instructed pt to call clinic when he knew for sure that he was going to [employer] et that this nurse would verify with pcp how often pt needed to see pcp. Pt verbalized understanding. documented in this encounter Plan of Treatment Not on file documented as of this encounter Goals Goal Patient Goal Type Associated Problems Recent Progress Patient-Stated? Author Blood Pressure < 140/90 Blood Pressure 134/86(2022 2:25 PM CDT) No Leonard Jasso APRN documented as of this encounter Visit Diagnoses Not on filedocumented in this encounter Care Teams Correctional Supervisor Relationship Specialty Start Date End Date Coco Leos PA-C [address] [place] [address] PCP - General Physician Banking Paralegal 10/25/17 11/24/18 Denny Dey DO [address] [place] [address] Referring Physician Orthopedic Surgery 06/28/18 9 Lacey Perdue MD [address] [phone] Referring Physician Infectious Diseases 06/28/18 documented as of this encounter
--- OUTSIDE RECORDS SUMMARY | 2024-11-23 00:31 | XMS_ITS | Encounter Summary ---
Author Organization [facility] Address [address] [place] [address] Care Team Providers Care Acid Patroller Name Role Phone Coco Leos PA-C Primary Care Provider [phone] Encounter Details Date Type Department Care Team (Latest Contact Info) Description 06/17/2018 12:45 PM CDT - 06/17/2018 11:59 PM CDT Hospital Encounter [facility] [address] [place] [address] Cellulitis of right foot; Encounter for long-term (current) use of antibiotics; Urinary tract infection, site not specified Discharge Disposition: Home - Discharge to Home [...] Date/Time Associated Diagnosis Comments SEDIMENTATION RATE Routine 06/17/2018 12 :45 PM CDT Cellulitis of right foot Encounter for long-term (current) use of antibiotics Urinary tract infection, site not specified CBC AND DIFFERENTIAL Routine 06/17/2018 12:45 PM CDT Cellulitis of right foot Encounter for long-term (current) use of antibiotics Urinary tract infection, site not specified C-REACTIVE PROTEIN Routine 06/17/2018 12 :45 PM CDT Cellulitis of right foot Encounter for long-term (current) use of antibiotics Urinary tract infection, site not specified COMPREHENSIVE METABOLIC PANEL Routine 06/17/2018 12:45 PM CDT Cellulitis of right foot Encounter for long-term (current) use of antibiotics Urinary tract infection, site not specified documented in this encounter Results * (ABNORMAL) Comprehensive metabolic panel (06/17/2018 12:45 PM CDT) Sodium 136 136 - 145 mmol/L [facility] Potassium 4.0 3.5 - 5.1 mmol/L [facility] Comment: (NOTE) SPECIMEN NOTE:SLIGHTLY HEMOLYZED CALLED TO: LIZBETH ZHANG @ [facility].06/17/18 1522 DCCR Chloride 102 98 - 107 mmol/L [facility] CO2 31 21 - 32 mmol/L [facility] [employer] [facility] Glucose 112(H) 74 - 106 mg/dL [facility] BUN 11 7.0 - 18.0 mg/dL [facility] Creatinine 1.02 0.70 - 1.30 mg/dL [facility] Calcium 9.1 8.5 - 10.1 mg/dL [facility] Total Protein 6.9 6.4 - 8.2 g/dL [facility] Albumin 3.5 3.4 - 5.0 g/dL [facility] Bilirubin Total 0.4 0.2 - 1.0 mg/dL [facility] Alkaline Phosphatase 93 56 - 119 U/L [facility] AST 30 15 - 37 U/L [facility] ALT 30 12 - 78 U/L [facility] Creatinine Based eGFR >60 [facility] Comment: GFR REFERENCE RANGE: >60 mL/min/1.73m2 -- An eGFR of > than, or = to 60, may indicate normal renal function or mildly decreased GFR. EGFR /Citizen Of [place] >60 [facility] [employer] [facility] Comment: -- An eGFR of > than, or = to 60, may indicate normal renal function or mildly decreased GFR. Blood specimen (specimen) 06/17/2018 12:45 PM CDT 06/17/2018 2:26 PM CDT us Lacey Perdue MD LAB BLOOD ORDERABLES Final R esult [facility] [employer] [facility] [address] [place], [place] [phone] * (ABNORMAL) CBC and differential (06/17/2018 12:45 PM CDT) WBC 4.65 4.00 - 11.00 th/mm3 [facility] [employer] RBC 4.29(L) 4.50 - 6.50 mill/mm3 [facility] HGB 12.9(L) 13.8 - 18.0 g/dL [facility] HCT 39.8(L) 40.0 - 54.0 % [facility] MCV 92.8 76 - 99 fL [facility] MCH 30.1 27.0 - 32.0 pg [facility] MCHC 32.4 30.0 - 35.0 g/dL [facility] Platelets 220 135 - 470 th/mm3 [facility] RDW-CV 41.6 34.9 - 51.3 fL [facility] MPV 9.9 8.0 - 12.5 fL [facility] [employer] Differential Type AUTOMATED DIFFERENTIAL [facility] Neutrophil % 42.2(L) 45.0 - 75.0 % [facility] Lymphocytes % 38.9 20.0 - 45.0 % [facility] Monocyte % 13.3(H) 0.0 - 10.0 % [facility] Eosinophils Relative % 5.2(H) 0.0 - 5.0 % [facility] Basophils % 0.4 0.0 - 2.0 % [facility] Immature Granulocytes% 0.0 0.0 - 1.6 % [facility] Neutrophils Absolute 1.96(L) 2.00 - 7.900 th/mm3 [facility] Lymphocytes Absolute 1.81 1.00 - 4.00 th/mm3 [facility] Monos Absolute 0.62 0.0 - 0.80 th/mm3 [facility] Eosinophils Absolute Count 0.24 0.00 - 0.40 th/mm3 [facility] Basophils Absolute 0.02 0.00 - 0.10 th/mm3 [facility] Immature Granulocytes Absolute 0.00 0.0 - 0.20 th/mm3 [facility] Blood specimen (specimen) BLOOD SPECIMEN / Unknown 06/17/2018 12:45 PM CDT 06/17/2018 2:26 PM CDT us Lacey Perdue MD LAB BLOOD ORDERABLES Final R esult Performing Organization Address City/[facility]/ZIP Co de Phone Number [facility] [employer] [facility] [address] [place] [address] * (ABNORMAL) C-reactive protein (06/17/2018 12:45 PM CDT) CRP 2.00(H) 0.2 - 0.9 mg/dL [facility] [employer] [facility] Blood specimen (specimen) 06/17/2018 12:45 PM CDT 06/17/2018 2:26 PM CDT us Lacey Perdue MD LAB BLOOD ORDERABLES Final R esult Performing Organization Address [facility]/ZIP Co de Phone Number [facility] [employer] [facility] [address] [place] [address] * (ABNORMAL) Sedimentation rate (06/17/2018 12:45 PM CDT) Sedimentation Rate 61(H) 0 - 20 mm/hr [facility] [employer] [facility] Blood specimen (specimen) 06/17/2018 12:45 PM CDT 06/17/2018 2:26 PM CDT us Lacey Perdue MD LAB BLOOD ORDERABLES Final R esult Performing Organization Address City/[facility]/ZIP Co de Phone Number [facility] [employer] [facility] [address] [place] [address] documented in this encounter Visit Diagnoses Diagnosis Cellulitis of right foot Cellulitis and abscess of foot, except toes Encounter for long-term (current) use of antibiotics Urinary tract infection, site not specified documented in this encounter Care Teams Acid Patroller Relationship Specialty Start Date End Date Coco Leos PA-C [address] [place] [id number] PCP - General Physician Motorized Squad Sergeant 10/25/17 11/24/18 documented as of this encounter
--- OUTSIDE RECORDS SUMMARY | 2024-11-23 00:31 | XMS_ITS | Encounter Summary ---
Author Organization [employer] Address [address] [place] [address] Care Team Providers Care Hand Grinder Name Role Phone Coco Leos PA-C Primary Care Provider [phone] Denny Dey DO Unavailable [phone] Lacey Perdue MD Unavailable [phone] Reason for Visit * Reason Comments Results Encounter Details Date Type Department Care Team (Late st Contact Info) Description 08/08/2018 9:15 AM CDT Office Visit [address] [phone] Leonard Jasso, [employer] [address] [place], [place] [id number] High risk medication use (Primary Dx); Abnormal drug screen; Substance abuse Social History Tobacco Use Types Packs/Day Years [...] Sign Reading Time Taken Comments Blood Pressure 128/74 08/08/2018 8:55 AM CDT Pulse 97 08/08/2018 8:55 AM CDT Temperature 36.7 ??C (98 ??F) 08/08/2018 8:55 AM CDT Respiratory Rate 12 08/08/2018 8:55 AM CDT Oxygen Saturation 97% 08/08/2018 8:55 AM CDT Inhaled Oxygen Concentration - - Weight 82.9 kg (182 lb 12.8 oz) 08/08/2018 8:55 AM CDT Height - - Body Mass Index 25.51 08/03/2018 2:03 PM CDT documented in this encounter Functional Status * Are you deaf or do you have serious difficulty hearing? Answer Date of Assessment Author No 10/25/2017 2:00 PM Deonna Padilla S, CERTIFIED OPTICIAN * Are you blind or do you have serious difficulty seeing, even when wearing glasses? Answer Date of Assessment Author No 10/25/2017 2:00 PM JOHN Galvan Am y S, CERTIFIED OPTICIAN * Do you have serious difficulty walking or climbing stairs? (5 years old or older) Answer Date of Assessment Author No 10/25/2017 2:00 PM JOHN Galvan Am y S, CERTIFIED OPTICIAN * Do you have difficulty dressing or bathing? (5 years old or older) Answer Date of Assessment Author No 10/25/2017 2:00 PM RN CALL CENTER Deonna Galvan y S, CERTIFIED OPTICIAN * Because of a physical, mental, or emotional condition, do you have difficulty doing errands alone such as visiting a doctor's office or shopping? (15 years old or older) Answer Date of Assessment Author No 10/25/2017 2:00 PM JOHN Galvan Am y S, CERTIFIED OPTICIAN documented as of this encounter Mental Status * Because of a physical, mental, or emotional condition, do you have serious difficulty concentrating, remembering, or making decisions? (5 years old or older) Answer Entry Date Author No 10/25/2017 2:00 PM Deonna Padilla S, CERTIFIED OPTICIAN documented in this encounter Patient Instructions * Patient Instructions* Leonard Jasso APNP - 08/08/2018 9:15 AM CDT Greater than 25 minute visit reviewing urine results and possible reasons. Discussed need for strict compliance due to high risk medications. You are to return to the office today with Prescription bottles of Percocet and Extended Release Morphine Sulfate for pill count. Take medication exactly as prescribed. Review your controlled substance contract you signed with me. We have to abide by those rules. documented in this encounter Progress Notes * Leonard Jasso APNP - 08/08/2018 9:15 AM CDT * Leonard Jasso APNP - 08/08/2018 9:15 AM CDT Chief Complaint Patient presents with ??? Results Subjective: Patient ID: Edilberto Hawley is a 62 y.o. male. Pt here for follow up due to abnormal urine drug screen. Pt not positive for controlled substances he is being prescribed. Discussed my concerns with the pt. Pt states he was ran out of his percocet and states that is why he is drug screen was negative. Pt also not positive for extended release morphine sulfate. I explained I was very specific with pt in regard to confirming he was taking extended release morphine at time of drug screen and pt confirmed he was but screen is negative. Explained I will not let my prescriptions be diverted. Pt continues to state he is taking extended release morphine. States he is taking percocet as prescribed also. Explained need for pt to bring prescription bottles and contents to office for pill count. Pt agrees to return as expected before noon today with meds. History provided by: Patient Patient's problem list, [...] intolerance. Genitourinary: Negative for difficulty urinating. Musculoskeletal: Chronic pain. Skin: Negative for rash. Allergic/Immunologic: Negative for environmental allergies and food allergies. Neurological: Negative for dizziness, tremors, speech difficulty, weakness and headaches. Psychiatric/Behavioral: Negative for agitation and behavioral problems. All other systems reviewed and are negative. Objective: BP 128/74 (BP Location: RUE, BP Position: sitting, BP Cuff Size: Reg) Pulse 97 Temp 36.7 ??C (98 ??F) (Tympanic) Resp 12 Wt 82.9 kg (182 lb 12.8 oz) SpO2 97% BMI 25.51 kg/m?? Body mass index is 25.51 kg/m??. Physical Exam Constitutional: He is oriented to person, place, and time. Vital signs are normal. He appears well-developed and well-nourished. Non-toxic appearance. He does not have a sickly appearance. He does not appear ill. No distress. Eyes: Pupils are equal, round, and reactive to light. Conjunctivae are normal. Cardiovascular: Normal rate, regular rhythm and normal heart sounds. Pulmonary/Chest: Effort normal and breath sounds normal. No respiratory distress. He has no wheezes. Neurological: He is alert and oriented to person, place, and time. Skin: He is not diaphoretic. Psychiatric: He has a normal mood and affect. His behavior is normal. Judgment and thought content normal. Denies current abuse of medications and diversion. Nursing note and vitals reviewed. Assessment/Orders: Diagnoses and all orders for this visit: High risk medication use - Urine Drug Screen; Future Abnormal drug screen - Urine Drug Screen; Future Substance abuse Plan: This will be your only warning in regard to being positive for meds prescribed on drug screen. If you have any abnormal drug screens in the future I will recommend drug treatment program and taper off chronic pain meds to avoid withdrawal. You will be referred to Pain Management Clinic. After that I will not prescribe any chronic pain medications for you. * Yael Sim LPN - 08/08/2018 9:15 AM CDT Pt brought medications in to clinic per pcp instructions. Percocet is ordered 1 tab 4x daily prn. Percocet count = 96. Morphine is scripted 1 tab every 12 hours prn. Morphine count = 1. Both medications scripted et filled 07/11/2018. Pt sts that he keeps his medications on top of his dresser at homeet is unable to explain the loss of morphine tablets. PCP notified. documented in this encounter Plan of Treatment Not on file documented as of this encounter Goals Goal Patient Goal Type Associated Problems Recent Progress Patient-Stated? Author Blood Pressure < 140/90 Blood Pressure 134/86(2022 2:25 PM CDT) No Leonard Jasso APRN documented as of this encounter Results * (ABNORMAL) Urine Drug Screen (08/08/2018 9:33 AM CDT) Cannabinoids,UR NEG NEG [facility] [employer] Comment:(Cutoff is 50 ng/mL) Cocaine,UR NEG NEG [facility] [employer] Comment:(Cutoff is 150 ng/mL ) Opiates,UR POS(A) NEG [facility] [employer] Comment:(Cutoff is 100 ng/mL ) Amphetamines,UR NEG NEG [facility] Comment:(Cut off is 500 ng/m l) Phencyclidine,UR NEG NEG [facility] [employer] Comment:(Cutoff is 25 ng/mL) Tricyclics UR POS(A) NEG [facility] Comment:(Cut off is 200 ng/m L) Barbiturates,UR NEG NEG [facility] Comment:(Cutoff is 200 ng/mL ) Methadone Screen NEG NEG [facility] [employer] Comment:(Cutoff is 200 ng/mL ) Benzodiazepines,UR NEG NEG [facility] Comment:(Cutoff is 150 ng/mL ) Oxycodone Screen,UR POS(A) NEG [facility] Comment:(Cutoff is 100 ng/mL ) Propoxyphene,UR NEG NEG [facility] [employer] [facility] Comment:(Cut off is 200 ng/m L) Buprenorphine UR NEG NEG [facility] [employer] [facility] Comment:(Cutoff is 10 ng/mL) Methamphetamine NEG NEG [facility] [employer] [facility] Comment: (Cut off is 500 ng/ml) ---- URINE TOXICOLOGY RESULTS ARE UNCONFIRMED, QUALITATIVE RESULTS ??FOR MEDICAL PURPOSES ONLY. Urine specimen (specimen) 08/08/2018 9:33 AM CDT 08/08/2018 2:07 PM CDT Leonard Jasso APRN URINE ORDERABLES Veronica alexandre Result [facility] [address] [facility] [place], [place] [phone] documented in this encounter Visit Diagnoses Diagnosis High risk medication use- Primary Encounter for long-term (current) use of other medications Abnormal drug screen Nonspecific abnormal toxicological findings Substance abuse Other, mixed, or unspecified nondependent drug abuse, unspecified documented in this encounter Care Teams Hand Grinder Relationship Specialty Start Date End Date Coco Leos PA-C [address] [place], [place] [phone] PCP - General Physician Fountain Roller Assembler 10/25/17 11/24/18 Denny Dey DO [address] [place] [id number] Referring Physician Orthopedic Surgery 06/28/18 9 Lacey Perdue MD [address] [place] [phone] Referring Physician Infectious Diseases 06/28/18 documented as of this encounter
--- OUTSIDE RECORDS SUMMARY | 2024-11-23 00:31 | XMS_ITS | Encounter Summary ---
Author Organization [employer] Address [address] [place] [address] Care Team Providers Care Shoe Repairer Name Role Phone Coco Leos PA-C Primary Care Provider [phone] Denny Dey DO Unavailable [phone] Lacey Perdue MD Unavailable [phone] Reason for Referral * Referral (1-3 days) - Closed Specialty Diagnoses / Procedures Referred By Contac t Referred To Contact Infectious Diseases Diagnoses Other acute osteomyelitis of right ankle Cellulitis of right foot Ligament rupture Yanira Fung NP Phone: tel: fax: REF [facility] [address] [address] Phone: tel: fax: Referral ID Status Reason Start Date Expiration Date V isits Requested Visits Authorized [id number] Closed Specialty Services Required 09/08/2018 09/08/2019 1 1 * Referral (Routine) - Closed Specialty Diagnoses / Procedures Referred By Contac t Referred To Contact Orthopedic Surgery Diagnoses Other acute osteomyelitis of right ankle Cellulitis of right foot Ligament rupture Yanira Fung NP Phone: tel: fax: REF [facility] [address] [place] [address] Phone: tel: fax: Referral ID Status Reason Start Date Expiration Date V isits Requested Visits Authorized [id number] Closed Specialty Services Required 09/08/2018 09/08/2019 1 1 Encounter Details Date Type Department Care Team (Late st Contact Info) Description 09/08/2018 E-Prescribe [address] [id number] Yanira Fung NP [address] [place] [address] Other acute osteomyelitis of right ankle (Primary Dx); Cellulitis of right foot; Ligament rupture Social History Tobacco Use Types Packs/Day Years [...] Date/Time Associated Diagnosis Comments AMB REFERRAL TO INFECTIOUS DISEASE Routine 09/19/2018 Other acute osteomyelitis of right ankle Cellulitis of right foot Ligament rupture AMB REFERRAL TO ORTHOPEDIC SURGERY Routine 09/09/2018 Other acute osteomyelitis of right ankle Cellulitis of right foot Ligament rupture documented in this encounter Results * Referral to Infectious Disease (09/19/2018) 09/19/2018 [facility]ative [facility] - 09/23/2018 3:40 PM GENERAL MEDICAL PRACTITIONER See scanned results us Yanira Fung APPAREL PATTERN MAKER OUTPATIENT REFERRAL ORDERABLES Final Result [facility] [address] [phone] * Referral to Orthopedic Surgery (09/09/2018) 09/09/2018 us Yanira Fung APPAREL PATTERN MAKER OUTPATIENT REFERRAL ORDERABLES Final Result EXTERNAL NON UPH - NO INTERFACE documented in this encounter Visit Diagnoses Diagnosis Other acute osteomyelitis of right ankle- Primary Cellulitis of right foot Cellulitis and abscess of foot, except toes Ligament rupture Unspecified site of sprain and strain documented in this encounter Care Teams Shoe Repairer Relationship Specialty Start Date End Date Coco Leos PA-C [address] [place] [id number] PCP - General Physician Sociocultural Anthropology Professor 10/25/17 11/24/18 Denny Dey DO [address] [place] [address] Referring Physician Orthopedic Surgery 06/28/18 9 Lacey Perdue MD [address] [phone] Referring Physician Infectious Diseases 06/28/18 documented as of this encounter
--- OUTSIDE RECORDS SUMMARY | 2024-11-23 00:31 | XMS_ITS | Encounter Summary ---
Author Organization [employer] Address [address] [place] [address] Care Team Providers Care Chart Picker Name Role Phone Coco Leos PA-C Primary Care Provider [phone] Denny Dey DO Unavailable [phone] Lacey Perdue MD Unavailable [phone] Encounter Details Date Type Department Care Team (Latest Contact Info) Description 07/11/2018 10:05 AM CDT - 07/11/2018 11:59 PM CDT Hospital Encounter [facility] [address] [place] [phone] Chronic back pain greater than 3 months duration; Lumbar radiculopathy, chronic Discharge Disposition: Home - Discharge to Home or Self Care Social History Tobacco Use Types Packs/Day Years Used Date Smoking Tobacco: Former Smokeless Tobacco: Never Alcohol Use Standard Drinks/Week [...] 10/04/2018 baclofen (LIORESAL) 10 MG tablet Take 10 mg by mouth nightly. 08/09/2018 Diclofenac Sodium 1 % CREA Place onto the skin nightly as needed. 01/15/2021 DULoxetine (CYMBALTA) 60 MG capsule Take 1 capsule by mouth daily. 30 capsule 1 10/30/2017 05/05/2019 morphine (MS CONTIN) 30 MG extended release tablet Take 1 tablet by mouth every 12 (twelve) hours. 60 tablet 07/11/2018 08/09/2018 oxyCODONE-acetami nophen (PERCOCET) 10-325 MG per tablet Take 1 tablet by mouth every 6 (six) hours as needed for Pain. 90 tablet 07/11/2018 08/03/2018 tamsulosin HCl (FLOMAX) 0.4 MG capsule Take 0.4 mg by mouth daily. 05/02/2018 08/29/2018 documented as of this encounter Plan of Treatment Not on file documented as of this encounter Goals Goal Patient Goal Type Associated Problems Recent Progress Patient-Stated? Author Blood Pressure < 140/90 Blood Pressure 134/86(2022 2:25 PM CDT) No Leonard Jasso, ANGIE documented as of this encounter Procedures Procedure Name Priority Date/Time Associated Diagnosis Comments URINE DRUG SCREEN Routine 07/11/2018 10: 05 AM CDT Chronic back pain greater than 3 months duration Lumbar radiculopathy, chronic documented in this encounter Results * (ABNORMAL) Urine Drug Screen (07/11/2018 10:05 AM CDT) Cannabinoids,UR NEG NEG [facility] [employer] Comment:(Cutoff is 50 ng/mL) Cocaine,UR NEG NEG [facility] [employer] Comment:(Cutoff is 150 ng/mL ) Opiates,UR POS(A) NEG [facility] [employer] Comment:(Cutoff is 100 ng/mL ) Amphetamines,UR NEG NEG [facility] [employer] [facility] [facility] [employer] Comment:(Cut off is 500 ng/m l) Phencyclidine,UR NEG NEG [facility] [employer] [facility] Comment:(Cutoff is 25 ng/mL) Tricyclics UR POS(A) NEG [facility] Comment:(Cut off is 200 ng/m L) Barbiturates,UR NEG NEG [facility] [employer] [facility] Comment:(Cutoff is 200 ng/mL ) Methadone Screen NEG NEG [facility] [employer] Comment:(Cutoff is 200 ng/mL ) Benzodiazepines,UR NEG NEG [facility] [employer] Comment:(Cutoff is 150 ng/mL ) Oxycodone Screen,UR POS(A) NEG [facility] [employer] Comment:(Cutoff is 100 ng/mL ) Propoxyphene,UR NEG NEG [facility] [employer] [facility] [facility] Comment:(Cut off is 200 ng/m L) Buprenorphine UR NEG NEG [facility] [employer] [facility] Comment:(Cutoff is 10 ng/mL) Methamphetamine NEG NEG [facility] [employer] [facility] Comment: (Cut off is 500 ng/ml) ---- URINE TOXICOLOGY RESULTS ARE UNCONFIRMED, QUALITATIVE RESULTS ??FOR MEDICAL PURPOSES ONLY. Urine specimen (specimen) 07/11/2018 10:05 AM CDT 07/11/2018 1:19 PM CDT Leonard Jasso TOLL COLLECTOR URINE ORDERABLES Veronica bettie Result [facility] [address] [place], [place] [phone] documented in this encounter Visit Diagnoses Diagnosis Chronic back pain greater than 3 months duration Backache, unspecified Lumbar radiculopathy, chronic Thoracic or lumbosacral neuritis or radiculitis, unspecified documented in this encounter Care Teams Chart Picker Relationship Specialty Start Date End Date Coco Leos PA-C [address] [place] [id number] PCP - General Physician Flow Coordinator 10/25/17 11/24/18 Denny Dey DO [address] [place] [address] Referring Physician Orthopedic Surgery 06/28/18 9 Lacey Perdue MD [address] [phone] Referring Physician Infectious Diseases 06/28/18 documented as of this encounter
--- OUTSIDE RECORDS SUMMARY | 2024-11-23 00:31 | XMS_ITS | Encounter Summary ---
Author Organization [employer] Address [address] [place] [address] Care Team Providers Care Aesthetics Instructor Name Role Phone Coco Leos PA-C Primary Care Provider [phone] Denny Dey DO Unavailable [phone] Lacey Perdue MD Unavailable [phone] Encounter Details Date Type Department Care Team (Latest Contact Info) Description 09/26/2018 10:10 AM [facility] - 09/26/2018 11:59 PM [facility] Hospital Encounter [facility] [address] [place] [phone] Encounter for long-term (current) use of antibiotics; [...] of Assessment Author No 10/25/2017 2:00 PM [facility] HAND Galvan, Am y S, STENOTYPE OPERATOR * Do you have serious difficulty [...] Date/Time Associated Diagnosis Comments SEDIMENTATION RATE Routine 09/26/2018 10 :10 AM [facility] Encounter for long-term (current) use of antibiotics Primary localized osteoarthrosis CBC AND DIFFERENTIAL Routine 09/26/2018 10:10 AM [facility] Encounter for long-term (current) use of antibiotics Primary localized osteoarthrosis C-REACTIVE PROTEIN Routine 09/26/2018 10 :10 AM [facility] Encounter for long-term (current) use of antibiotics Primary localized osteoarthrosis VANCOMYCIN, TROUGH Routine 09/26/2018 10 :10 AM [facility] Encounter for long-term (current) use of antibiotics Primary localized osteoarthrosis COMPREHENSIVE METABOLIC PANEL Routine 09/26/2018 10:10 AM [facility] Encounter for long-term (current) use of antibiotics Primary localized osteoarthrosis BASIC METABOLIC PANEL Routine 09/26/2018 10:10 AM [facility] Encounter for long-term (current) use of antibiotics Primary localized osteoarthrosis documented in this encounter Results * C-reactive protein (09/26/2018 10:10 AM [facility]) CRP 0.60 0.2 - 0.9 mg/dL [facility] Blood specimen (specimen) 09/26/2018 10:10 AM [facility] 09/26/2018 2:16 PM [facility] us Lacey Perdue MD LAB BLOOD ORDERABLES Final R esult [facility] [address] [place], [place] [phone] * (ABNORMAL) Comprehensive metabolic panel (09/26/2018 10:10 AM [facility]) Sodium 140 136 - 145 mmol/L [facility] Potassium 4.2 3.5 - 5.1 mmol/L [facility] [employer] Chloride 101 98 - 107 mmol/L [facility] [employer] [facility] CO2 29 21 - 32 mmol/L [facility] [employer] [facility] Glucose 106 74 - 106 mg/dL [facility] BUN 14 7.0 - 18.0 mg/dL [facility] Creatinine 0.94 0.70 - 1.30 mg/dL [facility] Calcium 8.9 8.5 - 10.1 mg/dL [facility] [employer] [facility] Total Protein 7.2 6.4 - 8.2 g/dL [facility] Albumin 3.8 3.4 - 5.0 g/dL [facility] Bilirubin Total 0.7 0.2 - 1.0 mg/dL [facility] [employer] [facility] Alkaline Phosphatase 98 56 - 119 U/L [facility] AST 50(H) 15 - 37 U/L [facility] ALT 78 12 - 78 U/L [facility] Creatinine Based eGFR >60 [facility] Comment: GFR REFERENCE RANGE: >60 mL/min/1.73m2 -- An eGFR of > than, or = to 60, may indicate normal renal function or mildly decreased GFR. EGFR /Montenegrin >60 [facility] Comment: -- An eGFR of > than, or = to 60, may indicate normal renal function or mildly decreased GFR. Blood specimen (specimen) 09/26/2018 10:10 AM [facility] 09/26/2018 2:16 PM [facility] us Lacey Perdue MD LAB BLOOD ORDERABLES Final R esult [facility] [address] [place], [place] [phone] * (ABNORMAL) Sedimentation rate (09/26/2018 10:10 AM [facility]) Sedimentation Rate 29(H) 0 - 20 mm/hr [facility] [employer] [facility] Blood specimen (specimen) 09/26/2018 10:10 AM [facility] 09/26/2018 2:16 PM [facility] us Lacey Perdue MD LAB BLOOD ORDERABLES Final R esult [facility] [address] [place], [place] [phone] * (ABNORMAL) CBC and differential (09/26/2018 10:10 AM [facility]) WBC 8.05 4.00 - 11.00 th/mm3 [facility] [employer] [facility] RBC 5.05 4.50 - 6.50 mill/mm3 [facility] HGB 14.9 13.8 - 18.0 g/dL [facility] HCT 45.9 40.0 - 54.0 % [facility] MCV 90.9 76 - 99 fL [facility] MCH 29.5 27.0 - 32.0 pg [facility] MCHC 32.5 30.0 - 35.0 g/dL [facility] Platelets 187 135 - 470 th/mm3 [facility] RDW 13.5 11.0 - 17.0 % [facility] MPV 9.7 8.0 - 12.5 fL [facility] Differential Type AUTOMATED DIFFERENTIAL [facility] [employer] [facility] Neutrophil % 56.3 45.0 - 75.0 % [facility] Lymphocytes % 25.3 20.0 - 45.0 % [facility] Monocyte % 12.8(H) 0.0 - 10.0 % [facility] Eosinophils Relative % 5.0 0.0 - 5.0 % [facility] Basophils % 0.5 0.0 - 2.0 % [facility] [employer] Immature Granulocytes% 0.1 0.0 - 1.6 % [facility] Neutrophils Absolute 4.53 2.00 - 7.900 th/mm3 [facility] Lymphocytes Absolute 2.04 1.00 - 4.00 th/mm3 [facility] Monos Absolute 1.03(H) 0.0 - 0.80 th/mm3 [facility] Eosinophils Absolute Count 0.40 0.00 - 0.40 th/mm3 [facility] Basophils Absolute 0.04 0.00 - 0.10 th/mm3 [facility] Immature Granulocytes Absolute 0.01 0.0 - 0.20 th/mm3 [facility] Blood specimen (specimen) BLOOD SPECIMEN / Unknown 09/26/2018 10:10 AM [facility] 09/26/2018 2:16 PM [facility] us Lacey Perdue MD LAB BLOOD ORDERABLES Final R esult [facility] [address] [place], [place] [phone] * Vancomycin, trough (09/26/2018 10:10 AM [facility]) Vancomycin Trough 8.7 5.0 - 10.0 mcg/mL [facility] [employer] [facility] Blood specimen (specimen) 09/26/2018 10:10 AM [facility] 09/26/2018 11:20 AM [facility] us Lacey Perdue MD LAB BLOOD ORDERABLES Final R esult [facility] [employer] [facility] [address] [place], [place] [phone] * Basic metabolic panel (09/26/2018 10:10 AM [facility]) Sodium 140 136 - 145 mmol/L [facility] [employer] [facility] Potassium 4.2 3.5 - 5.1 mmol/L [facility] Chloride 101 98 - 107 mmol/L [facility] CO2 29 21 - 32 mmol/L [facility] Glucose 106 74 - 106 mg/dL [facility] BUN 14 7.0 - 18.0 mg/dL [facility] Creatinine 0.94 0.70 - 1.30 mg/dL [facility] [employer] [facility] Calcium 8.9 8.5 - 10.1 mg/dL [facility] Creatinine Based eGFR >60 [facility] Comment: GFR REFERENCE RANGE: >60 mL/min/1.73m2 -- An eGFR of > than, or = to 60, may indicate normal renal function or mildly decreased GFR. EGFR /Karla n >60 [facility] Comment: -- An eGFR of > than, or = to 60, may indicate normal renal function or mildly decreased GFR. Blood specimen (specimen) 09/26/2018 10:10 AM [facility] HAND 09/26/2018 11:20 AM [facility] HAND us Lacey Perdue MD LAB BLOOD ORDERABLES Final R esult [facility] [address] [place], [place] [phone] documented in this encounter Visit Diagnoses Diagnosis Encounter for long-term (current) use of antibiotics Primary localized osteoarthrosis Primary localized osteoarthrosis, unspecified site documented in this encounter Care Teams Aesthetics Instructor Relationship Specialty Start Date End Date Coco Leos PA-C [address] [place] [address] PCP - General Physician Electric Shovel Operator 10/25/17 11/24/18 Denny Dey DO [address] [place] [address] Referring Physician Orthopedic Surgery 06/28/18 9 Lacey Perdue MD [address] [phone] Referring Physician Infectious Diseases 06/28/18 documented as of this encounter
--- OUTSIDE RECORDS SUMMARY | 2024-11-23 00:31 | XMS_ITS | Encounter Summary ---
Author Organization [employer] Address [address] [place] [address] Care Team Providers Care Narcotics Detective Name Role Phone Coco Leos PA-C Primary Care Provider [phone] Denny Dey DO Unavailable [phone] Lacey Perdue MD Unavailable [phone] Encounter Details Date Type Department Care Team (Latest Contact Info) Description 09/07/2018 Transcribe Orders [facility] [address] [place] [phone] Yanira Fung, RADIO INTERFERENCE SUPERVISOR [address] [place] [address] Cellulitis of right foot (Primary Dx); Staphylococcal arthritis, right ankle and foot Social History Tobacco Use Types Packs/Day Years [...] of this encounter Results * Creatinine, Blood (09/07/2018 9:08 AM CDT) Creatinine 0.93 0.70 - 1.30 mg/dL [facility] Creatinine Based eGFR >60 [facility] Comment: GFR REFERENCE RANGE: >60 mL/min/1.73m2 -- An eGFR of > than, or = to 60, may indicate normal renal function or mildly decreased GFR. EGFR /Karla n >60 [facility] Comment: -- An eGFR of > than, or = to 60, may indicate normal renal function or mildly decreased GFR. Blood specimen (specimen) 09/07/2018 9:08 AM CDT 09/07/2018 9:12 AM CDT Yanira Fung RADIO INTERFERENCE SUPERVISOR LAB BLOOD ORDERABLES Final Res ult [facility] [address] [place], [place] [phone] documented in this encounter Visit Diagnoses Diagnosis Cellulitis of right foot- Primary Cellulitis and abscess of foot, except toes Staphylococcal arthritis, right ankle and foot documented in this encounter Care Teams Narcotics Detective Relationship Specialty Start Date End Date Coco Leos PA-C [address] [place] [address] PCP - General Physician Hood Fitter 10/25/17 11/24/18 Denny Dey DO [address] [place] [address] Referring Physician Orthopedic Surgery 06/28/18 9 Lacey Perdue MD [address] [phone] Referring Physician Infectious Diseases 06/28/18 documented as of this encounter
--- OUTSIDE RECORDS SUMMARY | 2024-11-23 00:31 | XMS_ITS | Encounter Summary ---
Author Organization [employer] Address [address] [place] [address] Care Team Providers Care Cigarette Machines Mechanic Name Role Phone Coco Leos PA-C Primary Care Provider [phone] Encounter Details Date Type Department Care Team (Latest Contact Info) Description 06/10/2018 Transcribe Orders [facility] [address] [place] [phone] Lacey Perdue MD [address] [phone] Cellulitis of right foot (Primary Dx); Antibiotic long-term use; Urinary tract infection; Encounter for fitting of portacath Social History Tobacco Use Types Packs/Day Years [...] Author No 10/25/2017 2:00 PM Deonna Padilla, STREET LIGHT MECHANIC * Do you have difficulty dressing or bathing? (5 years old or older) Answer Date of Assessment Author No 10/25/2017 2:00 PM Deonna Padilla, STREET LIGHT MECHANIC * Because of a physical, mental, or emotional condition, do you have difficulty doing errands alone such as visiting a doctor's office or shopping? (15 years old or older) Answer Date of Assessment Author No 10/25/2017 2:00 PM Deonna Padilla, STREET LIGHT MECHANIC documented as of this encounter Mental Status * Because of a physical, mental, or emotional condition, do you have serious difficulty concentrating, remembering, or making decisions? (5 years old or older) Answer Entry Date Author No 10/25/2017 2:00 PM Deonna Padilla, STREET LIGHT MECHANIC documented in this encounter Plan of Treatment Not on file documented as of this encounter Results * C-reactive protein (06/10/2018 11:15 AM CDT) CRP 0.30 0.2 - 0.9 mg/dL [facility] Blood specimen (specimen) 06/10/2018 11:15 AM CDT 06/10/2018 12:28 PM CDT us Lacey Perdue MD LAB BLOOD ORDERABLES Final R esult [facility] [address] [place], [place] [phone] * (ABNORMAL) Sedimentation rate (06/10/2018 11:15 AM CDT) Sedimentation Rate 57(H) 0 - 20 mm/hr [facility] Blood specimen (specimen) 06/10/2018 11:15 AM CDT 06/10/2018 12:28 PM CDT us Lacey Perdue MD LAB BLOOD ORDERABLES Final R esult [facility] [address] [place], [place] [phone] * Comprehensive metabolic panel (06/10/2018 11:15 AM CDT) Sodium 137 136 - 145 mmol/L [facility] Potassium 4.3 3.5 - 5.1 mmol/L [facility] Chloride 103 98 - 107 mmol/L [facility] CO2 30 21 - 32 mmol/L [facility] Glucose 105 74 - 106 mg/dL [facility] BUN 11 7.0 - 18.0 mg/dL [facility] Creatinine 0.86 0.70 - 1.30 mg/dL [facility] Calcium 8.8 8.5 - 10.1 mg/dL [facility] Total Protein 6.9 6.4 - 8.2 g/dL [facility] Albumin 3.4 3.4 - 5.0 g/dL [facility] Bilirubin Total 0.3 0.2 - 1.0 mg/dL [facility] Alkaline Phosphatase 95 56 - 119 U/L [facility] AST 17 15 - 37 U/L [facility] ALT 14 12 - 78 U/L [facility] Creatinine Based eGFR >60 [facility] Comment: GFR REFERENCE RANGE: >60 mL/min/1.73m2 -- An eGFR of > than, or = to 60, may indicate normal renal function or mildly decreased GFR. EGFR /Swazi >60 [facility] Comment: -- An eGFR of > than, or = to 60, may indicate normal renal function or mildly decreased GFR. Blood specimen (specimen) 06/10/2018 11:15 AM CDT 06/10/2018 12:28 PM CDT us Lacey Perdue MD LAB BLOOD ORDERABLES Final R esult [facility] [address] [place], [place] [phone] * (ABNORMAL) CBC and differential (06/10/2018 11:15 AM CDT) WBC 5.89 4.00 - 11.00 th/mm3 [facility] RBC 4.29(L) 4.50 - 6.50 mill/mm3 [facility] HGB 13.0(L) 13.8 - 18.0 g/dL [facility] HCT 38.9(L) 40.0 - 54.0 % [facility] MCV 90.7 76 - 99 fL [facility] MCH 30.3 27.0 - 32.0 pg [facility] MCHC 33.4 30.0 - 35.0 g/dL [facility] Platelets 193 135 - 470 th/mm3 [facility] RDW-CV 39.8 34.9 - 51.3 fL [facility] MPV 9.9 8.0 - 12.5 fL [facility] Differential Type AUTOMATED DIFFERENTIAL [facility] Neutrophil % 54.8 45.0 - 75.0 % [facility] Lymphocytes % 32.6 20.0 - 45.0 % [facility] Monocyte % 9.8 0.0 - 10.0 % [facility] Eosinophils Relative % 2.4 0.0 - 5.0 % [facility] Basophils % 0.2 0.0 - 2.0 % [facility] Immature Granulocytes% 0.2 0.0 - 1.6 % [facility] Neutrophils Absolute 3.23 2.00 - 7.900 th/mm3 [facility] Lymphocytes Absolute 1.92 1.00 - 4.00 th/mm3 [facility] Monos Absolute 0.58 0.0 - 0.80 th/mm3 [facility] Eosinophils Absolute Count 0.14 0.00 - 0.40 th/mm3 [facility] Basophils Absolute 0.01 0.00 - 0.10 th/mm3 [facility] Immature Granulocytes Absolute 0.01 0.0 - 0.20 th/mm3 [facility] Blood specimen (specimen) BLOOD SPECIMEN / Unknown 06/10/2018 11:15 AM CDT 06/10/2018 12:28 PM CDT us Lacey Perdue MD LAB BLOOD ORDERABLES Final R esult [facility] [address] [place], [place] [phone] documented in this encounter Visit Diagnoses Diagnosis Cellulitis of right foot- Primary Cellulitis and abscess of foot, except toes Antibiotic long-term use Encounter for long-term (current) use of antibiotics Urinary tract infection Urinary tract infection, site not specified Encounter for fitting of portacath Fitting and adjustment of vascular catheter documented in this encounter Care Teams Cigarette Machines Mechanic Relationship Specialty Start Date End Date Coco Leos PA-C [address] [phone] PCP - General Physician Sales Office Administrator 10/25/17 11/24/18 documented as of this encounter
--- OUTSIDE RECORDS SUMMARY | 2024-11-23 00:31 | XMS_ITS | Encounter Summary ---
Author Organization [employer] Address [address] [place] [address] Care Team Providers Care Shuffle Board Operator Name Role Phone Coco Leos PA-C Primary Care Provider [phone] Denny Dey DO Unavailable [phone] Lacey Perdue MD Unavailable [phone] Reason for Visit * Reason Onset Date Comments Medication Refill 08/29/2018 c/o leg pain Encounter Details Date Type Department Care Team (Late st Contact Info) Description 08/29/2018 [id number] [place], [place] [phone] Yael Sim, LINOTYPIST [address] [facility] [address] [place] [address] Social History Tobacco Use Types [...] Author No 10/25/2017 2:00 PM Deonna Padilla, VEGETABLE FARMING SUPERVISOR * Are you blind or do you have serious difficulty seeing, even when wearing glasses? Answer Date of Assessment Author No 10/25/2017 2:00 PM PAYMENT COLLECTOR Galvan, Am y S, VEGETABLE FARMING SUPERVISOR * Do you have serious difficulty walking or climbing stairs? (5 years old or older) Answer Date of Assessment Author No 10/25/2017 2:00 PM Deonna Padilla, VEGETABLE FARMING SUPERVISOR * Do you have difficulty dressing or bathing? (5 years old or older) Answer Date of Assessment Author No 10/25/2017 2:00 PM Deonna Padilla S, VEGETABLE FARMING SUPERVISOR * Because of a physical, mental, or emotional condition, do you have difficulty doing errands alone such as visiting a doctor's office or shopping? (15 years old or older) Answer Date of Assessment Author No 10/25/2017 2:00 PM Deonna Padilla S, VEGETABLE FARMING SUPERVISOR documented as of this encounter Mental Status * Because of a physical, mental, or emotional condition, do you have serious difficulty concentrating, remembering, or making decisions? (5 years old or older) Answer Entry Date Author No 10/25/2017 2:00 PM Deonna Padilla, VEGETABLE FARMING SUPERVISOR documented in this encounter Plan of Treatment Not on file documented as of this encounter Goals Goal Patient Goal Type Associated Problems Recent Progress Patient-Stated? Author Blood Pressure < 140/90 Blood Pressure 134/86(2022 2:25 PM CDT) No Leonard Jasso APRN documented as of this encounter Visit Diagnoses Not on filedocumented in this encounter Care Teams Shuffle Board Operator Relationship Specialty Start Date End Date Coco Leos PA-C [address] [place] [id number] PCP - General Physician Triage Technician 10/25/17 11/24/18 Denny Dey DO [address] [place] [address] Referring Physician Orthopedic Surgery 06/28/18 9 Lacey Perdue MD [address] [phone] Referring Physician Infectious Diseases 06/28/18 documented as of this encounter
--- OUTSIDE RECORDS SUMMARY | 2024-11-23 00:31 | XMS_ITS | Encounter Summary ---
Author Organization [employer] Address [address] [place] [address] Care Team Providers Care Matlab Developer Name Role Phone Coco Leos PA-C Primary Care Provider [phone] Denny Dey DO Unavailable [phone] Lacey Perdue MD Unavailable [phone] Reason for Visit * Reason Comments Cellulitis right ankle * Referral (Routine) - Closed Specialty Diagnoses / Procedures Referred By Celine almaguer Referred To Contact Internal Medicine Diagnoses Cellulitis of right lower extremity Wound of right lower extremity, subsequent encounter Leonard Jasso, CONTINUITY COORDINATOR [address] [place] [address] Phone: tel: fax: [address] [place] [address] Phone: tel: fax: Referral ID Status Reason Start Date Expiration Date V isits Requested Visits Authorized [id number] Closed Specialty Services Required 06/24/2018 06/24/2019 1 1 Encounter Details Date Type Department Care Team (Late st Contact Info) Description 06/28/2018 1:00 PM CDT Office Visit [address] [place] [address] Sarahy Maldonado, DO [address] [place] [address] [address] [place] [address] Chronic bilateral low back pain with left-sided sciatica (Primary Dx); Injury of left rotator cuff, sequela Social History Tobacco Use Types Packs/Day Years [...] Reading Time Taken Comments Blood Pressure 120/72 06/28/2018 1:17 PM CDT Pulse 95 06/28/2018 1:17 PM CDT Temperature 36.2 ??C (97.1 ??F) 06/28/2018 1:17 PM CD T Respiratory Rate - - Oxygen Saturation 98% 06/28/2018 1:17 PM CDT Inhaled Oxygen Concentration - - Weight 83.5 kg (184 lb) 06/28/2018 1:17 PM CDT Height 180.3 cm (5' 11 ) 06/28/2018 1:17 PM CDT Body Mass Index 25.66 06/28/2018 1:17 PM CDT documented in this encounter Functional [...] this encounter Patient Instructions * Patient Instructions* Sarahy Maldonado DO - 06/28/2018 1:00 PM CDT Patients PCP is: Dr. Sylvie DO [address] [place], [place] [phone] Patients PCP is: Dylan Jasso NP [address] [place], [place] [phone] documented in this encounter Progress Notes * Sarahy Maldonado DO - 06/28/2018 1:00 PM CDT Clinic History and Physical Subjective: Patient is a 62 y.o. male presents with a wound VAC on the right ankle and a history of septic joint and probable sepsis. The patient was seen by Dylan last week and referred up to this clinic in the same system due to complex medical history and ongoing medical problems. Patient is approximately week for of IV antibiotics and he has a wound VAC. The wound VAC has a charcoal dressing with an occlusive dressing over it and is functioning well. He has a PICC line in the right upper extremity whichis been an infected at least once and has been replaced. The patient has bruising and some erythemain the upper aspect of the PICC line stating that he cannot keep a dressing there due to his sweating frequently. He also complains of hoarseness which resulted from a transesophageal echocardiogram to make sure there was no seating of Staphylococcus on the valve. The patient is unsure of how he got his infection he was told at the hospital it came from his kidneys. However approximately 2 weeks before this episode started he stepped on a nail and had no medical treatment or antibiotics. He hadincreasing discomfort in the ankle approximately the week following which he felt was due to a turned ankle. It became progressively worse until he showed signs of sepsis with hallucinations and mental status changes was taken to [facility] and admitted. He has had 2 debridement surgeries on his ankle. He is under the care of infectious disease. He has been under the care of [facility] in the past due to his previous work and injuries related to the same. He has been in a chronic pain clinic there. After a disability issue where he fell and broke his back patient has not been able to return to work and is now retiring. He is looking to set up with new physicians. He has a remote history of substance abuse. He is quite honest about his recovery and is willing to sign a pain contract. He has ongoing chronic pain from a shoulder injury as well. At some point he might consider surgery or shoulder replacement. I was quite honest with him and told him that nobody should bereplacing that shoulder or doing surgery on that shoulder for up to a year from now. Patient Active Problem List Diagnosis Date Noted ??? 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 Substance abuse ??? Migraines ??? Chronic back pain greater than 3 months duration ??? Arthritis ??? Acute adjustment disorder with depressed mood 10/25/2017 ??? Chronic bilateral low back pain with sciatica 10/25/2017 ??? Rotator cuff injury 10/25/2017 Past Medical History: Diagnosis Date ??? Arthritis ??? Back injury ??? Chronic back pain greater than 3 months duration ??? Migraines ??? Shoulder injury ??? Substance abuse cocaine, crystal meth nothing since 1996 ??? Wrist disorder R frzn wrist, 2 screws Past Surgical History: Procedure Laterality Date ??? ELBOW SURGERY Left metal plate from elbow to forearm ??? FRACTURE SURGERY Left no sx ??? ROTATOR CUFF REPAIR Left ??? SHOULDER SURGERY Right repair tendon ??? SPINE SURGERY 3 4 5 lumbar, pinched nerves No Known Allergies Social History Substance Use Topics ??? Smoking status: Former Smoker ??? Smokeless tobacco: Never Used ??? Alcohol use No Additional Social History Details:recent travel [place] Family History Problem Relation Age of Onset ??? Dementia Mother Objective: Ros: History of colon polyps r with a subclinical evaluation. Patient will require referral to Gi A comprehensive review of systems was negative except for: Integument/breast: positive for Open wound in the right ankle Musculoskeletal: positive for arthralgias, back pain, bone pain, muscle weakness, neck pain, stiff joints and Fractured lumbar spine secondary to a fall in a construction site Chronic pain syndrome BP 120/72 Pulse 95 Temp 36.2 ??C (97.1 ??F) Ht 1.803 m (5' 11 ) Wt 83.5 kg (184 lb) SpO2 98% BMI 25.66 kg/m?? General appearance: alert, appears stated age and cooperative Head: Normocephalic, without obvious abnormality, atraumatic Eyes: conjunctivae/corneas clear. PERRL, EOM's intact. Fundi benign. Neck: no adenopathy, no carotid bruit, no JVD, supple, symmetrical, trachea midline and thyroid notenlarged, symmetric, no tenderness/mass/nodules Back: symmetric, no curvature. ROM normal. No CVA tenderness. Lungs: clear to auscultation bilaterally Chest wall: no tenderness Heart: regular rate and rhythm, S1, S2 normal, no murmur, click, rub or gallop Abdomen: soft, non-tender; bowel sounds normal; no masses, no organomegaly Extremities: extremities normal, atraumatic, no cyanosis or edema Pulses: 2+ and symmetric Skin: there is a wound VAC on the right ankle swelling and edema noted Neurologic: Grossly normal Psych: appropriately attired, well kept, behavior and speech normal, mood and affect appropriate. Data Review Last 24 hrs Labs (Last day) No results found within the past day. Assessment: Edilberto was seen today for cellulitis. Diagnoses and all orders for this visit: Chronic bilateral low back pain with left-sided sciatica Injury of left rotator cuff, sequela Plan: Referral to GI Obtain old records for further review especially from [facility] The patient will continue his current course of care with [facility] infectious [facility] will assume pain management and future issues as required documented in this encounter Plan of Treatment Scheduled Referrals Name Type Priority Associated Diagnoses Orde r Schedule Referral to Internal Medicine Outpatient Referral Routine Cellulitis of right lower extremity Wound of right lower extremity, subsequent encounter Ordered: 06/24/2018 documented as of this encounter Goals Goal Patient Goal Type Associated Problems Recent Progress Patient-Stated? Author Blood Pressure < 140/90 Blood Pressure 134/86(2022 2:25 PM CDT) No Leonard Jasso APRN documented as of this encounter Visit Diagnoses Diagnosis Chronic bilateral low back pain with left-sided sciatica- Primary Injury of left rotator cuff, sequela documented in this encounter Care Teams Matlab Developer Relationship Specialty Start Date End Date Coco Leos PA-C [address] [place] [address] PCP - General Physician Rn Faculty 10/25/17 11/24/18 Denny Dey DO [address] [place] [address] Referring Physician Orthopedic Surgery 06/28/18 9 Lacey Perdue MD [address] [phone] Referring Physician Infectious Diseases 06/28/18 documented as of this encounter
--- OUTSIDE RECORDS SUMMARY | 2024-11-23 00:31 | XMS_ITS | Encounter Summary ---
Author Organization [employer] Address [address] [place] [address] Care Team Providers Care Clothes Designer Name Role Phone RobertbetoGraceCoco Katt WISE Primary Care Provider [phone] Denny Dey DO Unavailable [phone] Lacey Perdue MD Unavailable Encounter Details Date Type Department Care Team (Latest Contact Info) Description 06/24/2018 Transcribe Orders [facility] [address] [place] [phone] Lacey Perdue MD [address] [phone] Cellulitis of right foot (Primary Dx); Encounter for long-term (current) use of antibiotics Social History Tobacco Use Types Packs/Day Years [...] of Assessment Author No 10/25/2017 2:00 PM POWER SWEEPER OPERATOR Deonna Galvan, GEORGE * Are you blind or do you have serious difficulty seeing, even when wearing glasses? Answer Date of Assessment Author No 10/25/2017 2:00 PM Deonna Padilla, SAP ABAP DEVELOPER * Do you have serious difficulty walking or climbing stairs? (5 years old or older) Answer Date of Assessment Author No 10/25/2017 2:00 PM Deonna Padilla, SAP ABAP DEVELOPER * Do you have difficulty dressing or bathing? (5 years old or older) Answer Date of Assessment Author No 10/25/2017 2:00 PM Deonna Padilla, SAP ABAP DEVELOPER * Because of a physical, mental, [...] as of this encounter Results * (ABNORMAL) Sedimentation rate (06/24/2018 1:00 PM CDT) Sedimentation Rate 46(H) 0 - 20 mm/hr [facility] [employer] LAB Blood specimen (specimen) 06/24/2018 1:00 PM CDT 06/24/2018 2:26 PM CDT us Lacey Perdue MD LAB BLOOD ORDERABLES Final R esult [facility] [employer] LAB [address] [place], [place] [phone] * C-reactive protein (06/24/2018 1:00 PM CDT) CRP 0.80 0.2 - 0.9 mg/dL [facility] [email or web address] LAB Blood specimen (specimen) 06/24/2018 1:00 PM CDT 06/24/2018 2:26 PM CDT us Lacey Perdue MD LAB BLOOD ORDERABLES Final R esult [facility] [email or web address] [facility] [address] [place], [place] [phone] * (ABNORMAL) Comprehensive metabolic panel (06/24/2018 1:00 PM CDT) Sodium 138 136 - 145 mmol/L [facility] [employer] [facility] Potassium 3.8 3.5 - 5.1 mmol/L [facility] [employer] [facility] Chloride 103 98 - 107 mmol/L [facility] [employer] [facility] CO2 28 21 - 32 mmol/L [facility] [employer] [facility] Glucose 162(H) 74 - 106 mg/dL [facility] [employer]THAg[employer] [facility] BUN 12 7.0 - 18.0 mg/dL [facility] [employer]Agamigo [facility] Creatinine 0.97 0.70 - 1.30 mg/dL [facility] [employer] [facility] Calcium 8.7 8.5 - 10.1 mg/dL [facility] [employer] [facility] Total Protein 7.1 6.4 - 8.2 g/dL [facility] Albumin 3.6 3.4 - 5.0 g/dL [facility] [employer] [facility] Bilirubin Total 0.4 0.2 - 1.0 mg/dL [facility] [employer] [facility] Alkaline Phosphatase 96 56 - 119 U/L [facility] [employer] [facility] AST 22 15 - 37 U/L [facility] [employer] [facility] ALT 17 12 - 78 U/L [facility] [email or web address] [facility] Creatinine Based eGFR >60 [facility] [email or web address] [facility] Comment: GFR REFERENCE RANGE: >60 mL/min/1.73m2 -- An eGFR of > than, or = to 60, may indicate normal renal function or mildly decreased GFR. EGFR /Mauritanian >60 [facility] [email or web address] LAB Comment: -- An eGFR of > than, or = to 60, may indicate normal renal function or mildly decreased GFR. Blood specimen (specimen) 06/24/2018 1:00 PM CDT 06/24/2018 2:26 PM CDT us Lacey Perdue MD LAB BLOOD ORDERABLES Final R esult [facility] [email or web address] [facility] [address] [place] [address] * CBC and differential (06/24/2018 1:00 PM CDT) WBC 6.72 4.00 - 11.00 th/mm3 [facility] [employer] [facility] RBC 4.58 4.50 - 6.50 mill/mm3 [facility] [employer] [facility] HGB 13.8 13.8 - 18.0 g/dL [facility] [employer] [facility] HCT 40.9 40.0 - 54.0 % [facility] [employer] [facility] MCV 89.3 76 - 99 fL [facility] [employer] [facility] MCH 30.1 27.0 - 32.0 pg [facility] MCHC 33.7 30.0 - 35.0 g/dL [facility] [employer] [facility] Platelets 227 135 - 470 th/mm3 [facility] [employer] [facility] RDW-CV 40.2 34.9 - 51.3 fL [facility] [employer] [facility] MPV 10.2 8.0 - 12.5 fL [facility] [employer] [facility] Differential Type AUTOMATED DIFFERENTIAL [facility] [email or web address] [facility] Neutrophil % 58.1 45.0 - 75.0 % [facility] [employer] [facility] Lymphocytes % 31.8 20.0 - 45.0 % [facility] [employer] [facility] Monocyte % 8.2 0.0 - 10.0 % [facility] Eosinophils Relative % 1.5 0.0 - 5.0 % [facility] Basophils % 0.3 0.0 - 2.0 % [facility] Immature Granulocytes% 0.1 0.0 - 1.6 % [facility] Neutrophils Absolute 3.90 2.00 - 7.900 th/mm3 [facility] Lymphocytes Absolute 2.14 1.00 - 4.00 th/mm3 [facility] C[facility]GE [facility] Monos Absolute 0.55 0.0 - 0.80 th/mm3 [facility] Eosinophils Absolute Count 0.10 0.00 - 0.40 th/mm3 [facility] Basophils Absolute 0.02 0.00 - 0.10 th/mm3 [facility] Immature Granulocytes Absolute 0.01 0.0 - 0.20 th/mm3 [facility] Blood specimen (specimen) BLOOD SPECIMEN / Unknown 06/24/2018 1:00 PM CDT 06/24/2018 2:26 PM CDT us Lacey Perdue MD LAB BLOOD ORDERABLES Final R esult [facility] [address] [place], [place] [phone] documented in this encounter Visit Diagnoses Diagnosis Cellulitis of right foot- Primary Cellulitis and abscess of foot, except toes Encounter for long-term (current) use of antibiotics documented in this encounter Care Teams Clothes Designer Relationship Specialty Start Date End Date Coco Leos PA-C [address] [place] [phone] PCP - General Physician Lead Warehouse Associate 10/25/17 11/24/18 Denny Dey DO [address] [place] [address] [phone] Referring Physician Orthopedic Surgery 06/28/18 9 Lacey Perdue MD [address] [phone] Referring Physician Infectious Diseases 06/28/18 documented as of this encounter
--- OUTSIDE RECORDS SUMMARY | 2024-11-23 00:31 | XMS_ITS | Encounter Summary ---
Author Organization [employer] Address [address] [place] [address] Care Team Providers Care Ice Delivery Driver Name Role Phone Coco Leos PA-C Primary Care Provider [phone] Denny Dey DO Unavailable [phone] Lacey Perdue MD Unavailable [phone] Encounter Details Date Type Department Care Team (Latest Contact Info) Description 09/23/2018 11:00 AM BURLAP BAG SEWER - 09/23/2018 11:59 PM BURLAP BAG SEWER Hospital Encounter [facility] [address] [place] [phone] Encounter for long-term (current) use of antibiotics; [...] of Assessment Author No 10/25/2017 2:00 PM BURLAP BAG SEWER Galvan, Am y S, WATER QUALITY ASSISTANT * Do you have serious difficulty [...] Date/Time Associated Diagnosis Comments VANCOMYCIN, TROUGH Routine 09/23/2018 11 :00 AM BURLAP BAG SEWER Encounter for long-term (current) use of antibiotics Primary localized osteoarthrosis BASIC METABOLIC PANEL Routine 09/23/2018 11:00 AM BURLAP BAG SEWER Encounter for long-term (current) use of antibiotics Primary localized osteoarthrosis documented in this encounter Results * (ABNORMAL) Vancomycin, trough (09/23/2018 11:00 AM BURLAP BAG SEWER) Vancomycin Trough 25.8(H) 5.0 - 10.0 mcg/mL [facility] [employer] LAB Blood specimen (specimen) 09/23/2018 11:00 AM BURLAP BAG SEWER 09/23/2018 12:18 PM BURLAP BAG SEWER us Lacey Perdue MD LAB BLOOD ORDERABLES Final R esult [facility] [employer] [facility] [facility] LAB [address] [place] [address] * (ABNORMAL) Basic metabolic panel (09/23/2018 11:00 AM BURLAP BAG SEWER) Sodium 138 136 - 145 mmol/L [facility] [employer] [facility] Potassium 3.9 3.5 - 5.1 mmol/L [facility] Chloride 101 98 - 107 mmol/L [facility] [employer]ARTBiocontrolGE [facility] CO2 34(H) 21 - 32 mmol/L [facility] [employer] [facility] Glucose 136(H) 74 - 106 mg/dL [facility] BUN 12 7.0 - 18.0 mg/dL [facility] [employer] [facility] Creatinine 0.89 0.70 - 1.30 mg/dL [facility] [employer] Solutions[facility] LAB Calcium 8.8 8.5 - 10.1 mg/dL [facility] [employer] [facility] Creatinine Based eGFR >60 [facility] [employer] LAB Comment: GFR REFERENCE RANGE: >60 mL/min/1.73m2 -- An eGFR of > than, or = to 60, may indicate normal renal function or mildly decreased GFR. EGFR /Karla n >60 [facility] [employer] Solutions[facility] Comment: -- An eGFR of > than, or = to 60, may indicate normal renal function or mildly decreased GFR. Blood specimen (specimen) 09/23/2018 11:00 AM BURLAP BAG SEWER 09/23/2018 12:18 PM BURLAP BAG SEWER Lacey Perdue MD LAB BLOOD ORDERABLES Final R esult [facility] [employer] [facility] [address] [facility] [place], [place] [phone] documented in this encounter Visit Diagnoses Diagnosis Encounter for long-term (current) use of antibiotics Primary localized osteoarthrosis Primary localized osteoarthrosis, unspecified site documented in this encounter Care Teams Ice Delivery Driver Relationship Specialty Start Date End Date Coco Leos PA-C [address] [place] [address] PCP - General Physician Cerner Analyst 10/25/17 11/24/18 Denny Dey DO [address] [place] [address] Referring Physician Orthopedic Surgery 06/28/18 9 Lacey Perdue MD [address] [place] [phone] Referring Physician Infectious Diseases 06/28/18 documented as of this encounter
--- OUTSIDE RECORDS SUMMARY | 2024-11-23 00:31 | XMS_ITS | Encounter Summary ---
Author Organization [employer] Address [address] [place] [address] Care Team Providers Care Documentation Liaison Name Role Phone Coco Leos PA-C Primary Care Provider [phone] Denny Dey DO Unavailable Lacey Perdue MD Unavailable [phone] Reason for Visit * Reason Onset Date Comments MRI appt 09/02/2018 Encounter Details Date Type Department Care Team (Late st Contact Info) Description 09/02/[address] [address] Yael Sim, FOOD AND NUTRITION SERVICES ASSISTANT [address] [facility] [address] [place], [place] [phone] MRI appt Social History Tobacco Use Types Packs/Day Years [...] Author No 10/25/2017 2:00 PM Deonna Padilla, COMMUNITY HEALTH SPECIALIST * Do you have serious difficulty walking or climbing stairs? (5 years old or older) Answer Date of Assessment Author No 10/25/2017 2:00 PM Deonna Padilla, COMMUNITY HEALTH SPECIALIST * Do you have difficulty dressing or bathing? (5 years old or older) Answer Date of Assessment Author No 10/25/2017 2:00 PM Deonna Padilla, COMMUNITY HEALTH SPECIALIST * Because of a physical, mental, or emotional condition, do you have difficulty doing errands alone such as visiting a doctor's office or shopping? (15 years old or older) Answer Date of Assessment Author No 10/25/2017 2:00 PM Deonna Padilla, COMMUNITY HEALTH SPECIALIST documented as of this encounter Mental Status * Because of a physical, mental, or emotional condition, do you have serious difficulty concentrating, remembering, or making decisions? (5 years old or older) Answer Entry Date Author No 10/25/2017 2:00 PM Deonna Padilla, COMMUNITY HEALTH SPECIALIST documented in this encounter Miscellaneous Notes * Telephone Encounter - Yael Sim LPN - 09/02/2018 1:58 PM CDT Left pt VM with lab et MRI date et time. Pt to report to on September 07 at 0900 for lab work et 1000 for MRI. Left instructions for pt to call clinic if any questions. documented in this encounter Plan of Treatment Not on file documented as of this encounter Goals Goal Patient Goal Type Associated Problems Recent Progress Patient-Stated? Author Blood Pressure < 140/90 Blood Pressure 134/86(2022 2:25 PM CDT) No Leonard Jasso APRN documented as of this encounter Visit Diagnoses Not on filedocumented in this encounter Care Teams Documentation Liaison Relationship Specialty Start Date End Date Coco Leos PA-C [address] [place] [address] PCP - General Physician Crib Clerk 10/25/17 11/24/18 Denny Dey DO [address] [place] [address] Referring Physician Orthopedic Surgery 06/28/18 9 Lacey Perdue MD [address] [phone] Referring Physician Infectious Diseases 06/28/18 documented as of this encounter
--- OUTSIDE RECORDS SUMMARY | 2024-11-23 00:31 | XMS_ITS | Encounter Summary ---
Author Organization [employer] Address [address] [place] [address] Care Team Providers Care Obstetrician Gynecologist Name Role Phone RobertbetoGraceCoco Katt WISE Primary Care Provider [phone] Denny Dey DO Unavailable [phone] Lacey Perdue MD Unavailable Encounter Details Date Type Department Care Team (Latest Contact Info) Description 09/26/2018 Transcribe Orders [facility] [address] [place] [phone] Lacey Perdue MD [address] [phone] Encounter for long-term (current) use [...] of Assessment Author No 10/25/2017 2:00 PM FLOUR WORKER Deonna Galvan, GEORGE * Are you blind [...] of this encounter Results * C-reactive protein (09/26/2018 10:10 AM FLOUR WORKER) [facility] CRP 0.60 0.2 - 0.9 mg/dL [facility] [email or web address] LAB Blood specimen (specimen) 09/26/2018 10:10 AM FLOUR WORKER 09/26/2018 2:16 PM FLOUR WORKER us Lacey Perdue MD LAB BLOOD ORDERABLES Final R esult [facility] [email or web address] LAB [address] [place], [place] [phone] * (ABNORMAL) Comprehensive metabolic panel (09/26/2018 10:10 AM FLOUR WORKER) Sodium 140 136 - 145 mmol/L [facility] [employer] [facility] Potassium 4.2 3.5 - 5.1 mmol/L [facility] [employer] [facility] Chloride 101 98 - 107 mmol/L [facility] [employer] [facility] CO2 29 21 - 32 mmol/L [facility] [employer] [facility] Glucose 106 74 - 106 mg/dL [facility] [employer] [facility] BUN 14 7.0 - 18.0 mg/dL [facility] [employer] [facility] Creatinine 0.94 0.70 - 1.30 mg/dL [facility] Calcium 8.9 8.5 - 10.1 mg/dL [facility] [employer] [facility] Total Protein 7.2 6.4 - 8.2 g/dL [facility] [employer] [facility] Albumin 3.8 3.4 - 5.0 g/dL [facility] Bilirubin Total 0.7 0.2 - 1.0 mg/dL [facility] [employer] [facility] Alkaline Phosphatase 98 56 - 119 U/L [facility] [employer] [facility] AST 50(H) 15 - 37 U/L [facility] [employer] [facility] ALT 78 12 - 78 U/L [facility]ering HallQUEST LAB Creatinine Based eGFR >60 [facility] HallQUEST LAB Comment: GFR REFERENCE RANGE: >60 mL/min/1.73m2 -- An eGFR of > than, or = to 60, may indicate normal renal function or mildly decreased GFR. EGFR /Swedish >60 [facility]ering HallQUEST LAB Comment: -- An eGFR of > than, or = to 60, may indicate normal renal function or mildly decreased GFR. Blood specimen (specimen) 09/26/2018 10:10 AM FLOUR WORKER 09/26/2018 2:16 PM FLOUR WORKER us Lacey Perdue MD LAB BLOOD ORDERABLES Final R esult [facility] Hall[facility] LAB [address] [place], [place] [phone] * (ABNORMAL) Sedimentation rate (09/26/2018 10:10 AM FLOUR WORKER) Sedimentation Rate 29(H) 0 - 20 mm/hr [facility] [employer] [facility] Blood specimen (specimen) 09/26/2018 10:10 AM FLOUR WORKER 09/26/2018 2:16 PM FLOUR WORKER us Lacey Perdue MD LAB BLOOD ORDERABLES Final R esult [facility] [employer] [facility] [address] [place], [place] [phone] * (ABNORMAL) CBC and differential (09/26/2018 10:10 AM FLOUR WORKER) WBC 8.05 4.00 - 11.00 th/mm3 [facility] [employer] [facility] RBC 5.05 4.50 - 6.50 mill/mm3 [facility] CARTHANubee [facility] HGB 14.9 13.8 - 18.0 g/dL [facility] HCT 45.9 40.0 - 54.0 % [facility] CARTHANubee [facility] MCV 90.9 76 - 99 fL [facility] MCH 29.5 27.0 - 32.0 pg [facility] MCHC 32.5 30.0 - 35.0 g/dL [facility] Platelets 187 135 - 470 th/mm3 [facility] RDW 13.5 11.0 - 17.0 % [facility] MPV 9.7 8.0 - 12.5 fL [facility] Differential Type AUTOMATED DIFFERENTIAL [facility] Neutrophil % 56.3 45.0 - 75.0 % [facility] Lymphocytes % 25.3 20.0 - 45.0 % [facility] Monocyte % 12.8(H) 0.0 - 10.0 % [facility] Eosinophils Relative % 5.0 0.0 - 5.0 % [facility] Basophils % 0.5 0.0 - 2.0 % [facility] Immature Granulocytes% 0.1 0.0 - 1.6 % [facility] Neutrophils Absolute 4.53 2.00 - 7.900 th/mm3 [facility] Lymphocytes Absolute 2.04 1.00 - 4.00 th/mm3 [facility] Monos Absolute 1.03(H) 0.0 - 0.80 th/mm3 [facility] Eosinophils Absolute Count 0.40 0.00 - 0.40 th/mm3 [facility] Basophils Absolute 0.04 0.00 - 0.10 th/mm3 [facility] Immature Granulocytes Absolute 0.01 0.0 - 0.20 th/mm3 [facility] Blood specimen (specimen) BLOOD SPECIMEN / Unknown 09/26/2018 10:10 AM FLOUR WORKER 09/26/2018 2:16 PM FLOUR WORKER us Lacey Perdue MD LAB BLOOD ORDERABLES Final R esult [facility] [employer]GE [facility] [address] [place] [address] documented in this encounter Visit Diagnoses Diagnosis Encounter for long-term (current) use of antibiotics- Primary Primary localized osteoarthrosis Primary localized osteoarthrosis, unspecified site documented in this encounter Care Teams Obstetrician Gynecologist Relationship Specialty Start Date End Date Coco Leos PA-C [address] [place] [address] PCP - General Physician Kayaking Instructor 10/25/17 11/24/18 Denny Dey DO [address] [place] [address] [phone] Referring Physician Orthopedic Surgery 8/14/18 10/1/1 9 Lacey Perdue MD [address] [phone] Referring Physician Infectious Diseases 06/28/18 documented as of this encounter
--- OUTSIDE RECORDS SUMMARY | 2024-11-23 00:31 | XMS_ITS | Encounter Summary ---
Author Organization [employer] Address [address] [place] [address] Care Team Providers Care Brick Handler Name Role Phone Coco Leos PA-C Primary Care Provider [phone] Denny Dey DO Unavailable [phone] Lacey Perdue MD Unavailable [phone] Encounter Details Date Type Department Care Team (Latest Contact Info) Description 08/08/2018 9:33 AM CDT - 08/08/2018 11:59 PM CDT Hospital Encounter [facility] [address] [place] [phone] High risk medication use; Abnormal drug screen Discharge Disposition: Home - Discharge to Home [...] needed for Pain. 100 tablet 08/02/2018 05/10/2020 MethylPREDNISolon e (MEDROL) 4 MG dosepak Follow package directions. 1 Package 08/03/2018 09/08/2018 morphine (MS CONTIN) 30 MG extended release [...] Associated Diagnosis Comments URINE DRUG SCREEN Routine 08/08/2018 9:3 3 AM CDT High risk medication use Abnormal drug screen documented in this encounter Results * (ABNORMAL) Urine Drug Screen (08/08/2018 9:33 AM CDT) Cannabinoids,UR NEG NEG [facility] Comment:(Cutoff is 50 ng/mL) Cocaine,UR NEG NEG [facility] Comment:(Cutoff is 150 ng/mL ) Opiates,UR POS(A) NEG [facility] Comment:(Cutoff is 100 ng/mL ) Amphetamines,UR NEG NEG [facility] Comment:(Cut off is 500 ng/m l) Phencyclidine,UR NEG NEG [facility] NextGreatPlaceHAGE [facility] Comment:(Cutoff is 25 ng/mL) Tricyclics UR POS(A) NEG [facility] Comment:(Cut off is 200 ng/m L) Barbiturates,UR NEG NEG [facility] Comment:(Cutoff is 200 ng/mL ) Methadone Screen NEG NEG [facility] Comment:(Cutoff is 200 ng/mL ) Benzodiazepines,UR NEG NEG C [facility] Comment:(Cutoff is 150 ng/mL ) Oxycodone Screen,UR POS(A) NEG [facility] Comment:(Cutoff is 100 ng/mL ) Propoxyphene,UR NEG NEG [facility] Comment:(Cut off is 200 ng/m L) Buprenorphine UR NEG NEG [facility] Comment:(Cutoff is 10 ng/mL) Methamphetamine NEG NEG [facility] [employer]ach[employer] USASHOAIB [facility] Comment: (Cut off is 500 ng/ml) ---- URINE TOXICOLOGY RESULTS ARE UNCONFIRMED, QUALITATIVE RESULTS ??FOR MEDICAL PURPOSES ONLY. Urine specimen (specimen) 08/08/2018 9:33 AM CDT 08/08/2018 2:07 PM CDT Leonard Jasso TECHNICIAN URINE ORDERABLES Veronica alexandre Result [facility] [address] [place], [place] [phone] documented in this encounter Visit Diagnoses Diagnosis High risk medication use Encounter for long-term (current) use of other medications Abnormal drug screen Nonspecific abnormal toxicological findings documented in this encounter Care Teams Brick Handler Relationship Specialty Start Date End Date Coco Leos PA-C [address] [place] [address] PCP - General Physician Water Resources Project Manager 10/25/17 11/24/18 Denny Dey DO [address] [place] [address] Referring Physician Orthopedic Surgery 06/28/18 9 Lacey Perdue MD [address] [phone] Referring Physician Infectious Diseases 06/28/18 documented as of this encounter
--- OUTSIDE RECORDS SUMMARY | 2024-11-23 00:31 | XMS_ITS | Encounter Summary ---
Author Organization [employer] Address [address] [place] [address] Care Team Providers Care Glassworker Name Role Phone RobertbetoGraceCoco Katt WISE Primary Care Provider [phone] Denny Dey DO Unavailable [phone] Lacey Perdue MD Unavailable [phone] Encounter Details Date Type Department Care Team (Latest Contact Info) Description 09/30/2018 Transcribe Orders [facility] [address] [place] [address] Lacey Perdue MD [address] [address] Encounter for long-term (current) use [...] Assessment Author No 10/25/2017 2:00 PM CLOTH SHADER Deonna Galvan, GEORGE * Are you blind [...] of this encounter Results * Vancomycin, trough (09/30/2018 10:30 AM CLOTH SHADER) [facility] Vancomycin Trough 9.0 5.0 - 10.0 mcg/mL [facility] Blood specimen (specimen) 09/30/2018 10:30 AM CLOTH SHADER 09/30/2018 11:35 AM CLOTH SHADER us Lacey Perdue MD LAB BLOOD ORDERABLES Final R esult [facility] [address] [place], [place] [phone] * (ABNORMAL) Basic metabolic panel (09/30/2018 10:30 AM CLOTH SHADER) Sodium 140 136 - 145 mmol/L [facility] Potassium 4.1 3.5 - 5.1 mmol/L [facility] [employer] [facility] Chloride 103 98 - 107 mmol/L [facility] [employer] [facility] CO2 27 21 - 32 mmol/L [facility] [employer] [facility] Glucose 128(H) 74 - 106 mg/dL [facility] [employer] [facility] BUN 10 7.0 - 18.0 mg/dL [facility] Creatinine 1.04 0.70 - 1.30 mg/dL [facility] Calcium 9.0 8.5 - 10.1 mg/dL [facility] Creatinine Based eGFR >60 [facility] Comment: GFR REFERENCE RANGE: >60 mL/min/1.73m2 -- An eGFR of > than, or = to 60, may indicate normal renal function or mildly decreased GFR. EGFR /Karla n >60 [facility] Comment: -- An eGFR of > than, or = to 60, may indicate normal renal function or mildly decreased GFR. Blood specimen (specimen) 09/30/2018 10:30 AM CLOTH SHADER 09/30/2018 11:35 AM CLOTH SHADER us Lacey Perdue MD LAB BLOOD ORDERABLES Final R esult [facility] [address] [place] [address] documented in this encounter Visit Diagnoses Diagnosis Encounter for long-term (current) use of antibiotics- Primary Primary localized osteoarthrosis Primary localized osteoarthrosis, unspecified site documented in this encounter Care Teams Glassworker Relationship Specialty Start Date End Date Coco Leos PA-C [address] [place] [address] PCP - General Physician Individual Small Group Instructor 10/25/17 11/24/18 Denny Dey DO [address] [place] [address] Referring Physician Orthopedic Surgery 06/28/18 9 Lacey Perdue MD [address] [phone] Referring Physician Infectious Diseases 06/28/18 documented as of this encounter
--- OUTSIDE RECORDS SUMMARY | 2024-11-23 00:31 | XMS_ITS | Encounter Summary ---
Author Organization [email or web address] Address [address] [place] [address] Care Team Providers Care Molding Associate Name Role Phone Coco Leos PA-C Primary Care Provider [phone] Denny Dey DO Unavailable [phone] Lacey Perdue MD Unavailable Reason for Visit * Reason Comments Surgical Clearance R ankle Encounter Details Date Type Department Care Team (Late st Contact Info) Description 09/12/2018 3:00 PM CDT Office Visit [address] [place] [address] Maria Antonia Mckeon NP [address] [facility] [address] [place] [address] Cellulitis of right ankle (Primary Dx); Pre-operative general physical examination Social History Tobacco Use Types Packs/Day Years [...] Reading Time Taken Comments Blood Pressure 120/80 09/12/2018 3:42 PM CDT Pulse 92 09/12/2018 3:42 PM CDT Temperature 36.7 ??C (98 ??F) 09/12/2018 3:42 PM CDT Respiratory Rate - - Oxygen Saturation 93% 09/12/2018 3:42 PM CDT Inhaled Oxygen Concentration - - Weight 87.5 kg (192 lb 12.8 oz) 09/12/2018 3:42 PM CDT Height 180.3 cm (5' 10.98 ) 09/12/2018 3:42 PM C DT Body Mass Index 26.91 09/12/2018 3:42 PM CDT documented in this encounter Functional Status * Are you deaf or do you have serious difficulty hearing? Answer Date of Assessment Author No 10/25/2017 2:00 PM DIRECTOR OF PUBLICATIONS Deonna Galvan y S, PHARMACY TECHNICIAN * Are you blind or do you have serious difficulty seeing, even when wearing glasses? Answer Date of Assessment Author No 10/25/2017 2:00 PM DIRECTOR OF PUBLICATIONS Cole Am y S, PHARMACY TECHNICIAN * Do you have serious difficulty walking or climbing stairs? (5 years old or older) Answer Date of Assessment Author No 10/25/2017 2:00 PM DIRECTOR OF PUBLICATIONS Deonna Galvan y S, PHARMACY TECHNICIAN * Do you have difficulty dressing or bathing? (5 years old or older) Answer Date of Assessment Author No 10/25/2017 2:00 PM DIRECTOR OF PUBLICATIONS Cole Am y S, PHARMACY TECHNICIAN * Because of a physical, mental, or emotional condition, do you have difficulty doing errands alone such as visiting a doctor's office or shopping? (15 years old or older) Answer Date of Assessment Author No 10/25/2017 2:00 PM DIRECTOR OF PUBLICATIONS Cole Am y S, PHARMACY TECHNICIAN documented as of this encounter Mental Status * Because of a physical, mental, or emotional condition, do you have serious difficulty concentrating, remembering, or making decisions? (5 years old or older) Answer Entry Date Author No 10/25/2017 2:00 PM DIRECTOR OF PUBLICATIONS Cole Am y S, PHARMACY TECHNICIAN documented in this encounter Progress Notes * Maria Antonia Mckeon NP - 09/12/2018 3:00 PM CDT Images from the original note were not included. [address] [facility] [address] Dept: [phone] Dept Loc: [phone] Loc Date: 09/12/2018 Name: Edilberto Hawley : 1955 PCP: Coco Leos PA-C SUBJECTIVE: Edilberto Hawley is a 62 y.o. male. Patient is here today for Chief Complaint Patient presents with ??? Surgical Clearance R ankle Information obtained from: patient. Today's concerns: Pro-operative physical exam: Edilberto Ding) has recently been found to have cellulitis and throughMRI- diagnosed with osteomyelitis. He saw ID today and is scheduled to have surgery in two days. Se reports that he does not have any acute illness at this time. Smoking or smoke exposure: History Smoking Status ??? Never Smoker Smokeless Tobacco ??? Never Used Review of Systems Constitutional: Negative. HENT: Negative. Eyes: Negative. Respiratory: Negative. Cardiovascular: Negative. Gastrointestinal: Negative. Endocrine: Negative. Genitourinary: Negative. Musculoskeletal: Positive for arthralgias, gait problem, joint swelling and myalgias. Foot and ankle pain. Pain with ambulation. Skin: Positive for wound. Allergic/Immunologic: Negative. Hematological: Negative. Patient's problem list, medications, allergies, past medical, surgical, social and family historieswere reviewed and updated as appropriate. OBJECTIVE: 36.7 ??C (98 ??F) (Tympanic) Pulse: 92 RespRate: BP Readings from Last 3 Encounters: 09/12/18 120/80 09/01/18 116/74 08/08/18 128/74 Wt Readings from Last 3 Encounters: 09/12/18 87.5 kg (192 lb 12.8 oz) 09/01/18 84.9 kg (187 lb 3.2 oz) 08/08/18 82.9 kg (182 lb 12.8 oz) SpO2 W Comments SpO2 93% Body mass index is 26.91 kg/m??. Physical Exam Constitutional: He is oriented to person, place, and time. Vital signs are normal. He appears well-developed and well-nourished. He is cooperative. He does not appear ill. No distress. HENT: Head: Normocephalic and atraumatic. Right Ear: External ear normal. Left Ear: External ear normal. Nose: Nose normal. Mouth/Throat: Oropharynx is clear and moist. No oropharyngeal exudate. Eyes: Pupils are equal, round, and reactive to light. Conjunctivae are normal. No scleral icterus. Neck: Normal range of motion. Neck supple. No JVD present. No thyromegaly present. Cardiovascular: Normal rate, regular rhythm, normal heart sounds and intact distal pulses. No murmur heard. Pulmonary/Chest: Effort normal and breath sounds normal. No respiratory distress. Abdominal: Soft. Bowel sounds are normal. He exhibits no distension. There is no tenderness. Musculoskeletal: Right ankle: He exhibits swelling. Tenderness. Lateral malleolus tenderness found. Feet: Lymphadenopathy: He has no cervical adenopathy. Neurological: He is alert and oriented to person, place, and time. Skin: Skin is warm and dry. Psychiatric: His behavior is normal. Thought content normal. Cognition and memory are normal. He expressed frustration with the process he is going through and upset about his recent diagnosis. Nursing note and vitals reviewed. ASSESSMENT: 1. Cellulitis of right ankle 2. Pre-operative general physical examination No orders of the defined types were placed in this encounter. PLAN: At this time he is not experiencing acute illness other than the cellulitis and osteomyelitis (being treated) in his ankle. He is cleared for surgery that is scheduled in two days. Encounter Date: 09/12/2018 Return in about 2 days (around 09/14/2018). Signed: Maria Antonia Mckeon NP 09/13/2018 9:30 AM documented in this encounter Plan of Treatment Not on file documented as of this encounter Goals Goal Patient Goal Type Associated Problems Recent Progress Patient-Stated? Author Blood Pressure < 140/90 Blood Pressure 134/86(2022 2:25 PM CDT) No Leonard Jasso APRN documented as of this encounter Visit Diagnoses Diagnosis Cellulitis of right ankle- Primary Pre-operative general physical examination Other specified pre-operative examination documented in this encounter Care Teams Molding Associate Relationship Specialty Start Date End Date Coco Leos PA-C [address] [place] [address] PCP - General Physician Mathematics Academic Chair 10/25/17 11/24/18 Denny Dey DO [address] [place] [address] Referring Physician Orthopedic Surgery 06/28/18 9 Lacey Perdue MD [address] [phone] Referring Physician Infectious Diseases 06/28/18 documented as of this encounter
--- OUTSIDE RECORDS SUMMARY | 2024-11-23 00:31 | XMS_ITS | Encounter Summary ---
Author Organization [employer] Address [address] [place] [address] Care Team Providers Care Suspect Artist Supervisor Name Role Phone RobertbetoGraceCoco Katt WISE Primary Care Provider [phone] Denny Dey DO Unavailable [phone] Lacey Perdue MD Unavailable Encounter Details Date Type Department Care Team (Latest Contact Info) Description 09/23/2018 Transcribe Orders [facility] [address] [address] Lacey Perdue MD [address] [address] Encounter for long-term (current) use [...] of Assessment Author No 10/25/2017 2:00 PM PRODUCT SAFETY OFFICER Deonna Galvan, GEORGE * Are you [...] * (ABNORMAL) Vancomycin, trough (09/23/2018 11:00 AM PRODUCT SAFETY OFFICER) Vancomycin Trough 25.8(H) 5.0 - 10.0 mcg/mL [facility] Blood specimen (specimen) 09/23/2018 11:00 AM PRODUCT SAFETY OFFICER 09/23/2018 12:18 PM PRODUCT SAFETY OFFICER us Lacey Perdue MD LAB BLOOD ORDERABLES Final R esult [facility] [address] [place], [place] [phone] * (ABNORMAL) Basic metabolic panel (09/23/2018 11:00 AM PRODUCT SAFETY OFFICER) Sodium 138 136 - 145 mmol/L [facility] Potassium 3.9 3.5 - 5.1 mmol/L [facility] [employer] [facility] Chloride 101 98 - 107 mmol/L [facility] [employer] [facility] CO2 34(H) 21 - 32 mmol/L [facility] [employer] [facility] Glucose 136(H) 74 - 106 mg/dL [facility] [employer] [facility] BUN 12 7.0 - 18.0 mg/dL [facility] [employer] [facility] Creatinine 0.89 0.70 - 1.30 mg/dL [facility] [employer] [facility] Calcium 8.8 8.5 - 10.1 mg/dL [facility] Creatinine Based eGFR >60 [facility] Comment: GFR REFERENCE RANGE: >60 mL/min/1.73m2 -- An eGFR of > than, or = to 60, may indicate normal renal function or mildly decreased GFR. EGFR /Karla n >60 [facility] Comment: -- An eGFR of > than, or = to 60, may indicate normal renal function or mildly decreased GFR. Blood specimen (specimen) 09/23/2018 11:00 AM PRODUCT SAFETY OFFICER 09/23/2018 12:18 PM PRODUCT SAFETY OFFICER us Lacey Perdue MD LAB BLOOD ORDERABLES Final R esult [facility] [address] [place], [place] [phone] documented in this encounter Visit Diagnoses Diagnosis Encounter for long-term (current) use of antibiotics- Primary Primary localized osteoarthrosis Primary localized osteoarthrosis, unspecified site documented in this encounter Care Teams Suspect Artist Supervisor Relationship Specialty Start Date End Date Coco Leos PA-C [address] [place] [address] PCP - General Physician Vendor Representatives 10/25/17 11/24/18 Denny Dey DO [address] [place] [address] Referring Physician Orthopedic Surgery 06/28/18 9 Lacey Perdue MD [address] [phone] Referring Physician Infectious Diseases 06/28/18 documented as of this encounter
--- OUTSIDE RECORDS SUMMARY | 2024-11-23 00:31 | XMS_ITS | Encounter Summary ---
Author Organization [email or web address] Address [address] [place] [address] Care Team Providers Care Unix System Administrator Name Role Phone Coco Leos PA-C Primary Care Provider [phone] Encounter Details Date Type Department Care Team (Latest Contact Info) Description 06/03/2018 Transcribe Orders [facility] [address] [place] [address] Lacey Perdue MD [address] [address] Cellulitis of right foot (Primary [...] of Assessment Author No 10/25/2017 2:00 PM MERCHANDISE SUPPORT ASSOCIATE Galvan, Am y S, LAB TECHNOLOGIST * Do you have serious difficulty walking or climbing stairs? (5 years old or older) Answer Date of Assessment Author No 10/25/2017 2:00 PM Deonna Padilla, LAB TECHNOLOGIST * Do you have difficulty dressing or bathing? (5 years old or older) Answer Date of Assessment Author No 10/25/2017 2:00 PM Deonna Padilla, LAB TECHNOLOGIST * Because of a physical, mental, or emotional condition, do you have difficulty doing errands alone such as visiting a doctor's office or shopping? (15 years old or older) Answer Date of Assessment Author No 10/25/2017 2:00 PM Deonna Padilla, LAB TECHNOLOGIST documented as of this encounter Mental Status * Because of a physical, mental, or emotional condition, do you have serious difficulty concentrating, remembering, or making decisions? (5 years old or older) Answer Entry Date Author No 10/25/2017 2:00 PM Deonna Padilla, LAB TECHNOLOGIST documented in this encounter Plan of Treatment Not on file documented as of this encounter Results * (ABNORMAL) Sedimentation rate (06/03/2018 11:45 AM CDT) Sedimentation Rate 69(H) 0 - 20 mm/hr [facility] Blood specimen (specimen) 06/03/2018 11:45 AM CDT 06/03/2018 1:08 PM CDT us Lacey Perdue MD LAB BLOOD ORDERABLES Final R esult [facility] [address] [place], [place] [phone] * (ABNORMAL) C-reactive protein (06/03/2018 11:45 AM CDT) CRP 1.90(H) 0.2 - 0.9 mg/dL [facility] Blood specimen (specimen) 06/03/2018 11:45 AM CDT 06/03/2018 1:08 PM CDT us Lacey Perdue MD LAB BLOOD ORDERABLES Final R esult [facility] [employer] [facility] [address] [place], [place] [phone] * (ABNORMAL) Comprehensive metabolic panel (06/03/2018 11:45 AM CDT) Sodium 139 136 - 145 mmol/L [facility] [employer] [facility] Potassium 4.0 3.5 - 5.1 mmol/L [facility] [employer] [facility] Chloride 102 98 - 107 mmol/L [facility] [employer] [facility] CO2 30 21 - 32 mmol/L [facility] [facility] Glucose 138(H) 74 - 106 mg/dL [facility] [employer] [facility] BUN 9 7.0 - 18.0 mg/dL [facility] [employer] [facility] Creatinine 1.00 0.70 - 1.30 mg/dL [facility] [employer] [facility] Calcium 8.9 8.5 - 10.1 mg/dL [facility] [employer] [facility] Total Protein 6.5 6.4 - 8.2 g/dL [facility] [employer] [facility] Albumin 3.0(L) 3.4 - 5.0 g/dL [facility] [employer] [facility] Bilirubin Total 0.3 0.2 - 1.0 mg/dL [facility] [employer] [facility] Alkaline Phosphatase 97 56 - 119 U/L [facility] [employer] [facility] AST 18 15 - 37 U/L [facility] [employer] [facility] ALT 13 12 - 78 U/L [facility] [employer] [facility] Creatinine Based eGFR >60 [facility] [employer] [facility] Comment: GFR REFERENCE RANGE: >60 mL/min/1.73m2 -- An eGFR of > than, or = to 60, may indicate normal renal function or mildly decreased GFR. EGFR /German >60 [facility] [employer] [facility] Comment: -- An eGFR of > than, or = to 60, may indicate normal renal function or mildly decreased GFR. Blood specimen (specimen) 06/03/2018 11:45 AM CDT 06/03/2018 1:08 PM CDT us Lacey Perdue MD LAB BLOOD ORDERABLES Final R esult [facility] [employer] [facility] [address] [place], [place] [phone] * (ABNORMAL) CBC and differential (06/03/2018 11:45 AM CDT) WBC 5.55 4.00 - 11.00 th/mm3 [facility] [employer] [facility] RBC 4.06(L) 4.50 - 6.50 mill/mm3 [facility] [employer] [facility] HGB 12.5(L) 13.8 - 18.0 g/dL [facility] [employer] [facility] HCT 36.9(L) 40.0 - 54.0 % [facility] [employer] [facility] MCV 90.9 76 - 99 fL [facility] [employer] [facility] MCH 30.8 27.0 - 32.0 pg [facility] [employer] [facility] MCHC 33.9 30.0 - 35.0 g/dL [facility] [employer] [facility] Platelets 221 135 - 470 th/mm3 [facility] [employer] [facility] RDW-CV 39.0 34.9 - 51.3 fL [facility] [employer] [facility] MPV 9.7 8.0 - 12.5 fL [facility] [employer] [facility] Differential Type AUTOMATED DIFFERENTIAL [facility] [employer] [facility] Neutrophil % 63.4 45.0 - 75.0 % [facility] [employer] [facility] Lymphocytes % 24.0 20.0 - 45.0 % [facility] [employer] [facility] Monocyte % 9.7 0.0 - 10.0 % [facility] [employer] [facility] Eosinophils Relative % 2.5 0.0 - 5.0 % [facility] [employer] [facility] Basophils % 0.2 0.0 - 2.0 % [facility] [employer] [facility] Immature Granulocytes% 0.2 0.0 - 1.6 % [facility] Neutrophils Absolute 3.52 2.00 - 7.900 th/mm3 [facility] Lymphocytes Absolute 1.33 1.00 - 4.00 th/mm3 [facility] Monos Absolute 0.54 0.0 - 0.80 th/mm3 [facility] Eosinophils Absolute Count 0.14 0.00 - 0.40 th/mm3 [facility] Basophils Absolute 0.01 0.00 - 0.10 th/mm3 [facility] Immature Granulocytes Absolute 0.01 0.0 - 0.20 th/mm3 [facility] Blood specimen (specimen) BLOOD SPECIMEN / Unknown 06/03/2018 11:45 AM CDT 06/03/2018 1:08 PM CDT us Lacey Perdue MD LAB BLOOD ORDERABLES Final R esult [facility] [employer] [facility] [address] [place], [place] [phone] documented in this encounter Visit Diagnoses Diagnosis Cellulitis of right foot- Primary Cellulitis and abscess of foot, except toes Encounter for long-term (current) use of antibiotics Urinary tract infection, site not specified documented in this encounter Care Teams Unix System Administrator Relationship Specialty Start Date End Date Coco Leos PA-C [address] [address] PCP - General Physician Master Chef 10/25/17 11/24/18 documented as of this encounter
--- OUTSIDE RECORDS SUMMARY | 2024-11-23 00:31 | XMS_ITS | Encounter Summary ---
Author Organization [employer] Address [address] [place] [address] Care Team Providers Care Tape Duplicator Name Role Phone Coco Leos PA-C Primary Care Provider [phone] Denny Dey DO Unavailable [phone] Lacey Perdue MD Unavailable [phone] Reason for Visit * Reason Comments Medication Refill Encounter Details Date Type Department Care Team (Late st Contact Info) Description 07/11/2018 9:30 AM CDT Office Visit [address] [phone] Leonard Jasso, DEVELOPMENT DISABILITY SPECIALIST [address] [place], [place] [id number] Chronic back pain greater than 3 months duration (Primary Dx); Lumbar radiculopathy, chronic; Primary osteoarthritis involving multiple joints; History of colon polyps Social History Tobacco Use Types Packs/Day Years [...] Reading Time Taken Comments Blood Pressure 124/70 07/11/2018 9:29 AM CDT Pulse 76 07/11/2018 9:29 AM CDT Temperature 36 ??C (96.8 ??F) 07/11/2018 9:29 AM CDT Respiratory Rate 12 07/11/2018 9:29 AM CDT Oxygen Saturation 96% 07/11/2018 9:29 AM CDT Inhaled Oxygen Concentration - - Weight 82.7 kg (182 lb 6.4 oz) 07/11/2018 9:29 A M CDT Height - - Body Mass Index 25.44 06/28/2018 1:17 PM CDT documented in this encounter Functional Status * Are you deaf or do you have serious difficulty hearing? Answer Date of Assessment Author No 10/25/2017 2:00 PM Deonna Padilla, INVESTMENT STRATEGIST * Are you blind or do you have serious difficulty seeing, even when wearing glasses? Answer Date of Assessment Author No 10/25/2017 2:00 PM Deonna Padilla S, INVESTMENT STRATEGIST * Do you have serious difficulty walking or climbing stairs? (5 years old or older) Answer Date of Assessment Author No 10/25/2017 2:00 PM Deonna Padilla, INVESTMENT STRATEGIST * Do you have difficulty dressing or bathing? (5 years old or older) Answer Date of Assessment Author No 10/25/2017 2:00 PM Deonna Padilla, INVESTMENT STRATEGIST * Because of a physical, mental, or emotional condition, do you have difficulty doing errands alone such as visiting a doctor's office or shopping? (15 years old or older) Answer Date of Assessment Author No 10/25/2017 2:00 PM Deonna Padilla, INVESTMENT STRATEGIST documented as of this encounter Mental Status * Because of a physical, mental, or emotional condition, do you have serious difficulty concentrating, remembering, or making decisions? (5 years old or older) Answer Entry Date Author No 10/25/2017 2:00 PM Deonna Padilla INVESTMENT STRATEGIST documented in this encounter Patient Instructions * Patient Instructions* Leonard Jasso APNP - 07/11/2018 9:30 AM CDT Continue current medications and follow up in one month. Take medications exactly as prescribed. Warm moist [...] all that is documented in the agreement. Keep appt. For colonoscopy referral. documented in this encounter Progress Notes * Leonard Jasso APNP - 07/11/2018 9:30 AM CDT Chief Complaint Patient presents with ??? Medication Refill Subjective: Patient ID: Edilberto Hawley is a 62 y.o. male. Pt needs refills on chronic pain meds. Pt is treated with Chronic pain meds for lumbar radicular pain and OA. Pt also has wound LLE from removal of hardware and staph infection. In process of healing. Pt seems to be compliant with medications and taking appropriately at this time. Denies any significant side effects of pain meds except mild constipation relieved with OTC meds. Mood is good. Hygiene good. History provided by: Patient Patient's problem list, [...] urinating. Skin: Positive for wound (Right lower extremity lateral malleous.). Negative for rash. Allergic/Immunologic: Negative for environmental allergies and food allergies. Neurological: Negative for dizziness, tremors, speech difficulty, weakness and headaches. Psychiatric/Behavioral: Negative for agitation and behavioral problems. All other systems reviewed and are negative. Objective: BP 124/70 (BP Location: [facility], BP Position: sitting, BP Cuff Size: Reg) Pulse 76 Temp 36 ??C (96.8 ??F) (Tympanic) Resp 12 Wt 82.7 kg (182 lb 6.4 oz) SpO2 96% BMI 25.44 kg/m?? Body mass index is 25.44 kg/m??. Physical Exam Constitutional: He is oriented [...] He is not diaphoretic. Wound right lower extremity significantly better healing since last visit. Open area filled in withgranulation tissue. 3cm wide 7.5cm long with dry dressing. No significant drainage noted. Psychiatric: He has a normal mood and affect. His behavior is normal. Nursing note and vitals reviewed. Assessment/Orders: Diagnoses and all orders for this visit: Chronic back pain greater than 3 months duration - Urine Drug Screen; Future Lumbar radiculopathy, chronic - Urine Drug Screen; Future Primary osteoarthritis involving multiple joints History of colon polyps Comments: pt will look at records at home and let us know when he needs it again for proper treatment. Other orders - morphine (MS CONTIN) 30 MG extended release tablet; Take 1 tablet by mouth every 12 (twelve) hours. - oxyCODONE-acetaminophen (PERCOCET) 10-325 MG per tablet; Take 1 tablet by mouth every 6 (six) hours as needed for Pain. - amitriptyline (ELAVIL) 75 MG tablet; Take 1 tablet by mouth nightly. Plan: Take medications exactly as prescribed. Warm [...] all that is documented in the agreement. documented in this encounter Plan of Treatment Not on file documented as of this encounter Goals Goal Patient Goal Type Associated Problems Recent Progress Patient-Stated? Author Blood Pressure < 140/90 Blood Pressure 134/86(2022 2:25 PM CDT) No Leonard Jasso APRN documented as of this encounter Results * (ABNORMAL) Urine Drug Screen (07/11/2018 10:05 AM CDT) [facility] Cannabinoids,UR NEG NEG [facility] Comment:(Cutoff is 50 ng/mL) Cocaine,UR NEG NEG [facility] [employer] Comment:(Cutoff is 150 ng/mL ) Opiates,UR POS(A) NEG [facility] Comment:(Cutoff is 100 ng/mL ) Amphetamines,UR NEG NEG [facility] Comment:(Cut off is 500 ng/m l) Phencyclidine,UR NEG NEG [facility] Comment:(Cutoff is 25 ng/mL) Tricyclics UR POS(A) NEG [facility] Comment:(Cut off is 200 ng/m L) Barbiturates,UR NEG NEG [facility] Comment:(Cutoff is 200 ng/mL ) Methadone Screen NEG NEG [facility] Comment:(Cutoff is 200 ng/mL ) Benzodiazepines,UR NEG NEG [facility] Comment:(Cutoff is 150 ng/mL ) Oxycodone Screen,UR POS(A) NEG [facility] Comment:(Cutoff is 100 ng/mL ) Propoxyphene,UR NEG NEG [facility] Comment:(Cut off is 200 ng/m L) Buprenorphine [facility] Comment:(Cutoff is 10 ng/mL) Methamphetamine NEG NEG [facility] Comment: (Cut off is 500 ng/ml) ---- URINE TOXICOLOGY RESULTS ARE UNCONFIRMED, QUALITATIVE RESULTS ??FOR MEDICAL PURPOSES ONLY. Urine specimen (specimen) 07/11/2018 10:05 AM CDT 07/11/2018 1:19 PM CDT us Leonard Jasso APRN URINE ORDERABLES Veronica alexandre Result [facility] [address] [place], [place] [phone] documented in this encounter Visit Diagnoses Diagnosis Chronic back pain greater than 3 months duration- Primary Backache, unspecified Lumbar radiculopathy, chronic Thoracic or lumbosacral neuritis or radiculitis, unspecified Primary osteoarthritis involving multiple joints History of colon polyps Personal history of colonic polyps documented in this encounter Care Teams Tape Duplicator Relationship Specialty Start Date End Date Coco Leos PA-C [address] [place] [phone] PCP - General Physician Residential Care Facility Manager 10/25/17 11/24/18 Denny Dey DO [address] [place] [address] Referring Physician Orthopedic Surgery 06/28/18 9 Lacey Perdue MD [address] [phone] Referring Physician Infectious Diseases 06/28/18 documented as of this encounter
--- OUTSIDE RECORDS SUMMARY | 2024-11-23 00:31 | XMS_ITS | Encounter Summary ---
Author Organization [facility] Address [address] [place] [address] Care Team Providers Care Chief Relay Tester Name Role Phone Coco Leos PA-C Primary Care Provider [phone] Denny Dey DO Unavailable [phone] Lacey Perdue MD Unavailable [phone] Encounter Details Date Type Department Care Team (Latest Contact Info) Description 09/07/2018 5:10 AM CDT - 09/07/2018 9:14 AM CDT Hospital Encounter [facility] [address] [place] [phone] Yanira Fung, RETINAL SURGEON [address] [place] [address] Substance abuse; Narcotic drug use; Cellulitis of right foot; Staphylococcal arthritis, right ankle and foot Discharge Disposition: Home - Discharge to Home [...] this encounter Medications at Time of Discharge cephALEXin (KEFLEX) 500 MG capsuleIndication s:Cellulitis of right ankle Take 1 capsule by mouth 4 (four) times daily for 10 days. 40 capsule 09/01/2018 09/11/2018 amitriptyline (ELAVIL) 75 MG tablet Take 1 [...] Date/Time Associated Diagnosis Comments CREATININE, BLOOD Routine 09/07/2018 9:0 8 AM CDT Cellulitis of right foot Staphylococcal arthritis, right ankle and foot URINE DRUG SCREEN Routine 09/07/2018 9:0 0 AM CDT Substance abuse Narcotic drug use documented in this encounter Results * Creatinine, Blood (09/07/2018 9:08 AM CDT) Creatinine 0.93 0.70 - 1.30 mg/dL [facility] Creatinine Based eGFR >60 [facility] Comment: GFR REFERENCE RANGE: >60 mL/min/1.73m2 -- An eGFR of > than, or = to 60, may indicate normal renal function or mildly decreased GFR. EGFR /Karla n >60 [facility] [employer] Comment: -- An eGFR of > than, or = to 60, may indicate normal renal function or mildly decreased GFR. Blood specimen (specimen) 09/07/2018 9:08 AM CDT 09/07/2018 9:12 AM CDT us Yanira Fung RETINAL SURGEON LAB BLOOD ORDERABLES Final Res ult [facility] [employer] [facility] [address] [place], [place] [phone] * (ABNORMAL) Urine Drug Screen (09/07/2018 9:00 AM CDT) Cannabinoids,UR NEG NEG [facility] Comment:(Cutoff is 50 ng/mL) Cocaine,UR NEG NEG [facility] Comment:(Cutoff is 150 ng/mL ) Opiates,UR POS(A) NEG [facility] [employer] [facility] Comment:(Cutoff is 100 ng/mL ) Amphetamines,UR NEG NEG [facility] [employer] [facility] Comment:(Cut off is 500 ng/m l) Phencyclidine,UR NEG NEG [facility] Comment:(Cutoff is 25 ng/mL) Tricyclics UR POS(A) NEG [facility] Comment:(Cut off is 300 ng/m L) Barbiturates,UR NEG NEG [facility] Comment:(Cutoff is 200 ng/mL ) Methadone Screen NEG NEG [facility] Comment:(Cutoff is 200 ng/mL ) Benzodiazepines,UR NEG NEG [facility] Comment:(Cutoff is 150 ng/mL ) Oxycodone Screen,UR POS(A) NEG [facility] Comment:(Cutoff is 100 ng/mL ) Propoxyphene,UR NEG NEG [facility] [employer] [facility] Comment:(Cut off is 300 ng/m L) Buprenorphine UR NEG NEG [facility] Comment:(Cutoff is 10 ng/mL) Methamphetamine NEG NEG [facility] [employer] [facility] Comment: (Cut off is 500 ng/ml) ---- URINE TOXICOLOGY RESULTS ARE UNCONFIRMED, QUALITATIVE RESULTS ??FOR MEDICAL PURPOSES ONLY. Urine specimen (specimen) 09/07/2018 9:00 AM CDT 09/07/2018 9:03 AM CDT us Yanira Fung RETINAL SURGEON URINE ORDERABLES Final Result [facility] [employer] [address] [place], [place] [phone] documented in this encounter Visit Diagnoses Diagnosis Substance abuse Other, mixed, or unspecified nondependent drug abuse, unspecified Narcotic drug use Cellulitis of right foot Cellulitis and abscess of foot, except toes Staphylococcal arthritis, right ankle and foot documented in this encounter Care Teams Chief Relay Tester Relationship Specialty Start Date End Date Coco Leos PA-C [address] [place] [phone] PCP - General Physician Graining Operator 10/25/17 11/24/18 Denny Dey DO [address] [place] [address] Referring Physician Orthopedic Surgery 06/28/18 9 Lacey Perdue MD [address] [phone] Referring Physician Infectious Diseases 06/28/18 documented as of this encounter
--- OUTSIDE RECORDS SUMMARY | 2024-11-23 00:31 | XMS_ITS | Encounter Summary ---
Author Organization [facility] Address [address] [place] [address] Care Team Providers Care Lean Consultant Name Role Phone Coco Leos PA-C Primary Care Provider [phone] Denny Dey DO Unavailable Lacey Perdue MD Unavailable [phone] Encounter Details Date Type Department Care Team (Latest Contact Info) Description 09/30/2018 10:30 AM DUPLICATOR PUNCH OPERATOR - 09/30/2018 11:59 PM DUPLICATOR PUNCH OPERATOR Hospital Encounter [facility] [address] [place] [phone] Encounter for long-term (current) use of antibiotics; [...] of Assessment Author No 10/25/2017 2:00 PM DUPLICATOR PUNCH OPERATOR [place], Am y S, FRONT OFFICE ADMINISTRATOR * Do you have serious difficulty [...] Date/Time Associated Diagnosis Comments VANCOMYCIN, TROUGH Routine 09/30/2018 10 :30 AM DUPLICATOR PUNCH OPERATOR Encounter for long-term (current) use of antibiotics Primary localized osteoarthrosis BASIC METABOLIC PANEL Routine 09/30/2018 10:30 AM DUPLICATOR PUNCH OPERATOR Encounter for long-term (current) use of antibiotics Primary localized osteoarthrosis documented in this encounter Results * Vancomycin, trough (09/30/2018 10:30 AM DUPLICATOR PUNCH OPERATOR) Vancomycin Trough 9.0 5.0 - 10.0 mcg/mL [facility] [employer] [facility] Blood specimen (specimen) 09/30/2018 10:30 AM DUPLICATOR PUNCH OPERATOR 09/30/2018 11:35 AM DUPLICATOR PUNCH OPERATOR us Lacey Perdue MD LAB BLOOD ORDERABLES Final R esult [facility] [employer] [facility] [address] [place], [place] [phone] * (ABNORMAL) Basic metabolic panel (09/30/2018 10:30 AM DUPLICATOR PUNCH OPERATOR) Sodium 140 136 - 145 mmol/L [facility] [employer] [facility] Potassium 4.1 3.5 - 5.1 mmol/L [facility] Chloride 103 98 - 107 mmol/L [facility] CO2 27 21 - 32 mmol/L [facility] Glucose 128(H) 74 - 106 mg/dL [facility] BUN 10 7.0 - 18.0 mg/dL [facility] Creatinine 1.04 0.70 - 1.30 mg/dL [facility] [employer] [facility] Calcium 9.0 8.5 - 10.1 mg/dL [facility] [employer] [facility] Creatinine Based eGFR >60 [facility] [employer] [facility] Comment: GFR REFERENCE RANGE: >60 mL/min/1.73m2 -- An eGFR of > than, or = to 60, may indicate normal renal function or mildly decreased GFR. EGFR /Karla n >60 [facility] [email or web address] [facility] Comment: -- An eGFR of > than, or = to 60, may indicate normal renal function or mildly decreased GFR. Blood specimen (specimen) 09/30/2018 10:30 AM DUPLICATOR PUNCH OPERATOR 09/30/2018 11:35 AM DUPLICATOR PUNCH OPERATOR us Lacey Perdue MD LAB BLOOD ORDERABLES Final R esult [facility] [email or web address] [facility] [address] [place], [place] [phone] documented in this encounter Visit Diagnoses Diagnosis Encounter for long-term (current) use of antibiotics Primary localized osteoarthrosis Primary localized osteoarthrosis, unspecified site documented in this encounter Care Teams Lean Consultant Relationship Specialty Start Date End Date Coco Leos PA-C [address] [place] [phone] PCP - General Physician Agriculture Engineer 10/25/17 11/24/18 Denny Dey DO [address] [place] [phone] Referring Physician Orthopedic Surgery 06/28/18 9 Lacey Perdue MD [address] [place] [phone] Referring Physician Infectious Diseases 06/28/18 documented as of this encounter
--- OUTSIDE RECORDS SUMMARY | 2024-11-23 00:31 | XMS_ITS | Encounter Summary ---
Author Organization [facility] Address [address] [place] [address] Care Team Providers Care Manufacturing Engineering Manager Name Role Phone Coco Leos PA-C Primary Care Provider [phone] Denny Dey DO Unavailable [phone] Lacey Perdue MD Unavailable [phone] Reason for Referral * MRI/CAT Scan (Routine) - Closed Specialty Diagnoses / Procedures Referred By Contac t Referred To Contact Radiology Diagnoses Staphylococcal arthritis of right ankle Cellulitis of right ankle Procedures MRI Lower Extremity Joint w wo Contrast Yanira Jimenez NP Phone: tel: fax: Referral ID Status Reason Start Date Expiration Date Visits Re quested Visits Authorized [id number] Closed 09/02/2018 09/02/2019 1 1 Reason for Visit * MRI/CAT Scan (Routine) - Closed Specialty Diagnoses / Procedures Referred By Contac t Referred To Contact Radiology Diagnoses Staphylococcal arthritis of right ankle Cellulitis of right ankle Procedures MRI Lower Extremity Joint w wo Contrast Yanira Jimenez NP Phone: tel: fax: Referral ID Status Reason Start Date Expiration Date Visits Re quested Visits Authorized [id number] Closed 09/02/2018 09/02/2019 1 1 Encounter Details Date Type Department Care Team (Latest Contact Info) Description 09/07/2018 9:15 AM CDT - 09/07/2018 11:59 PM CDT Hospital Encounter [facility] [address] [place] [address] Cousins, Yanira Crockett, SENIOR MOBILE DEVELOPER [address] [place] [address] Staphylococcal arthritis of right ankle (HCC); Cellulitis of right ankle Discharge Disposition: Home - Discharge to Home [...] Author No 10/25/2017 2:00 PM Deonna Padilla, ASSESSMENT EXPERT * Do you have difficulty dressing or [...] Entry Date Author No 10/25/2017 2:00 PM WARES SORTER Galvan, Am y S, ASSESSMENT EXPERT documented in this encounter Medications at Time [...] LOWER EXTREMITY JOINT W WO CONTRAST Routine 09/07/2018 11:08 AM CDT Staphylococcal arthritis of right ankle (HCC) Cellulitis of right ankle documented in this encounter Results * MRI Lower Extremity Joint w wo Contrast (09/07/2018 11:08 AM CDT) Anatomical Region Laterality Modality Magnetic Resonan ce 09/07/2018 4:42 PM CDT Impressions 09/07/2018 4:51 PM CDT 1.Abnormal edema and enhancement of the inferior 2.5 cm of the fibula involving the lateral malleolus. ??Given history this is consistent with osteomyelitis until proven otherwise. 2.Small multifocal joint effusions discussed above. 3.Peroneal tenosynovitis and significant peroneal longus tendinosis. ??Focal interstitial split tear of the peroneal brevis tendon. 4.Posterior tibial tenosynovitis. 5.Rupture of the anterior talofibular ligament. 6.Dorsal forefoot cellulitis. THIS IS AN ELECTRONICALLY VERIFIED FINAL REPORT 09/07/2018 4:51 PM - Electronically signed by Kellie Ambrocio M.D. : D: ??09/07/2018 4:51 PM T: ??09/07/2018 4:51 PM Report ID: [id number] Reading Location: ??[id number] Narrative 09/07/2018 4:51 [place] [address] Patient Name:EDILBERTO DURAND ?Accession Number: [id number] Patient ID Number:[id number] ?Approval Date: 09/07/2018 4:51 PM Date of :1955 ? Imaging Date: 09/07/2018 Gender:M ?Referring Physician:YANIRA JIMENEZ Exam Description:MRI LOWER EXTREMITY JOINT W WO CONTRAST ??Stay Type: EXAM DESCRIPTION: ??MR of the right ankle with contrast REASON FOR STUDY: ??Right ankle strain five months ago, osteomyelitis surgery, wound VAC since May 2018. ??Staph aureus right ankle. TECHNIQUE: ??Multiplanar, multisequence MRI of the right ankle was performed before and after contrast. ?? CONTRAST TYPE/DOSE: ??15 ml of Dotarem via the left antecubital fossa without complication COMPARISON: ??None-no prior radiograph or MR available at time of interpretation. FINDINGS: ??Bones: Abnormal edema and enhancement in the inferior 2.5 cm of the fibula involving the lateral malleolus with abnormal T1 hypointense signal as well. ??Findings are concerning for osteomyelitis given history. Effusions: Small tibiotalar ankle effusion. ??Small talonavicular effusion. ?? Small effusion in the posterior facet of the subtalar joint. Soft Tissues: No mass. Osseous Articulations: There is no osteochondral lesion of the talar dome. ?? There is no tarsal coalition. Achilles Tendon: Intact. ??No tendinosis or tear. Extensor Tendons: Intact. ??No tendinosis or tear. Flexor Tendons: Posterior tibial tenosynovitis. ??Flexor hallucis and flexor digitorum tendons intact. Peroneal Tendons: Peroneal tenosynovitis. ??Significant tendinopathy of the peroneal longus tendon. ??Interstitial split tear of the peroneal brevis tendon at the lateral malleolus. Lateral Ligaments: The syndesmotic, ??posterior talofibular, and calcaneofibular ligaments are intact. ??Rupture of the anterior talofibular ligament. Medial Ligaments: The deltoid ligament is intact. ??The tibial spring ligament is intact. Sinus Tarsi: Fat signal is preserved within the sinus tarsi. Plantar Fascia: No inflammation or tear. Post Contrast Findings: No mass. ??No abscess. Other: Dorsal soft tissue cellulitis. Procedure Note Kellie Ambrocio MD - 09/07/[address] [place] [address] Patient Name:EDILBERTO DURAND Accession Number: [id number] Patient ID Number:[id number] Approval Date: 09/07/2018 4:51 PM Date of :1955 Imaging Date: 09/07/2018 Gender:M Referring Physician:YANIRA JIMENEZ Exam Description:MRI LOWER EXTREMITY JOINT W WO CONTRAST Stay Type: EXAM DESCRIPTION: MR of the right ankle with contrast REASON FOR STUDY: Right ankle strain five months ago, osteomyelitissurgery, wound VAC since May 2018. Staph aureus right ankle. TECHNIQUE: Multiplanar, multisequence MRI of the right ankle wasperformed before and after contrast. CONTRAST TYPE/DOSE: 15 ml of Dotarem via the left antecubital fossawithout complication COMPARISON: None-no prior radiograph or MR available at time of interpretation. FINDINGS: Bones: Abnormal edema and enhancement in the inferior 2.5 cm ofthe fibula involving the lateral malleolus with abnormal T1 hypointense signalas well. Findings are concerning for osteomyelitis given history. Effusions: Small tibiotalar ankle effusion. Small talonavicular effusion. Small effusion in the posterior facet of the subtalar joint. Soft Tissues: No mass. Osseous Articulations: There is no osteochondral lesion of the talar dome. There is no tarsal coalition. Achilles Tendon: Intact. No tendinosis or tear. Extensor Tendons: Intact. No tendinosis or tear. Flexor Tendons: Posterior tibial tenosynovitis. Flexor hallucis andflexor digitorum tendons intact. Peroneal Tendons: Peroneal tenosynovitis. Significant tendinopathy of the peroneal longus tendon. Interstitial split tear of the peroneal brevistendon at the lateral malleolus. Lateral Ligaments: The syndesmotic, posterior talofibular, and calcaneofibular ligaments are intact. Rupture of the anterior talofibular ligament. Medial Ligaments: The deltoid ligament is intact. The tibial springligament is intact. Sinus Tarsi: Fat signal is preserved within the sinus tarsi. Plantar Fascia: No inflammation or tear. Post Contrast Findings: No mass. No abscess. Other: Dorsal soft tissue cellulitis. IMPRESSION: 1.Abnormal edema and enhancement of the inferior 2.5 cm of the fibula involving the lateral malleolus. Given history this is consistent with osteomyelitis until proven otherwise. 2.Small multifocal joint effusions discussed above. 3.Peroneal tenosynovitis and significant peroneal longus tendinosis.Focal interstitial split tear of the peroneal brevis tendon. 4.Posterior tibial tenosynovitis. 5.Rupture of the anterior talofibular ligament. 6.Dorsal forefoot cellulitis. THIS IS AN ELECTRONICALLY VERIFIED FINAL REPORT 09/07/2018 4:51 PM - Electronically signed by Kellie Ambrocio M.D. : Report ID: [id number] Reading Location: [id number] Yanira Jimenez SENIOR MOBILE DEVELOPER IMG MRI ORDERABLES Final Resul t documented in this encounter Visit Diagnoses Diagnosis Staphylococcal arthritis of right ankle Cellulitis of right ankle documented in this encounter Administered Medications Inactive Administered Medications - up to 3 most recent administrations Medication Order MAR Action Action Date Dose Rate Site Gadoterate Meglumine (DOTAREM 0.5 mmol/mL) injection 15 mL, Intravenous, ONCE, On Wed09/07/18 at 1030, For 1 dose Given 09/07/2018 10:01 AM CDT 15 mLs documented in this encounter Care Teams Manufacturing Engineering Manager Relationship Specialty Start Date End Date Coco Leos PA-C [address] [place] [address] PCP - General Physician E Commerce Merchant 10/25/17 11/24/18 Denny Dey DO [address] [place] [address] Referring Physician Orthopedic Surgery 06/28/18 9 Lacey Perdue MD [address] [phone] Referring Physician Infectious Diseases 06/28/18 documented as of this encounter
--- OUTSIDE RECORDS SUMMARY | 2024-11-23 00:31 | XMS_ITS | Encounter Summary ---
Author Organization [facility] Address [address] [place] [address] Care Team Providers Care Continuity Director Name Role Phone Coco Leos PA-C Primary Care Provider [phone] Denny Dey DO Unavailable [phone] Lacey Perdue MD Unavailable [phone] Encounter Details Date Type Department Care Team (Latest Contact Info) Description 08/03/2018 3:00 PM CDT - 08/03/2018 11:59 PM CDT Hospital Encounter [facility] [address] [place] [address] Chronic bilateral low back pain with left-sided sciatica; Wound of right lower extremity, subsequent encounter; Injury of left rotator cuff, sequela Discharge Disposition: Home - Discharge to Home [...] Associated Diagnosis Comments URINE DRUG SCREEN Routine 08/03/2018 3:0 0 PM CDT Chronic bilateral low back pain with left-sided sciatica Wound of right lower extremity, subsequent encounter Injury of left rotator cuff, sequela documented in this encounter Results * (ABNORMAL) Urine Drug Screen (08/03/2018 3:00 PM CDT) Cannabinoids,UR NEG NEG [facility] [employer] Comment:(Cutoff is 50 ng/mL) Cocaine,UR NEG NEG [facility] [employer] [facility] Comment:(Cutoff is 150 ng/mL ) Opiates,UR NEG NEG [facility] [employer] [facility] Comment:(Cutoff is 100 ng/mL ) Amphetamines,UR NEG NEG [facility] [employer] [facility] Comment:(Cut off is 500 ng/m l) Phencyclidine,UR NEG NEG [facility] [employer] [facility] Comment:(Cutoff is 25 ng/mL) Tricyclics UR POS(A) NEG [facility] Comment:(Cut off is 200 ng/m L) Barbiturates,UR NEG NEG [facility] [employer] [facility] Comment:(Cutoff is 200 ng/mL ) Methadone Screen NEG NEG [facility] [employer] [facility] Comment:(Cutoff is 200 ng/mL ) Benzodiazepines,UR NEG NEG [facility] [employer] [facility] Comment:(Cutoff is 150 ng/mL ) Oxycodone Screen,UR NEG NEG [facility] [employer] [facility] Comment:(Cutoff is 100 ng/mL ) Propoxyphene,UR NEG NEG [facility] [email or web address] [facility] Comment:(Cut off is 200 ng/m L) Buprenorphine UR NEG NEG [facility] [employer] [facility] Comment:(Cutoff is 10 ng/mL) Methamphetamine NEG NEG [facility] [employer] [facility] Comment: (Cut off is 500 ng/ml) ---- URINE TOXICOLOGY RESULTS ARE UNCONFIRMED, QUALITATIVE RESULTS ??FOR MEDICAL PURPOSES ONLY. Urine specimen (specimen) 08/03/2018 3:00 PM CDT 08/03/2018 4:14 PM CDT us Leonard Jasso RETAIL ACCOUNT MANAGER URINE ORDERABLES Veronica l Result [facility] [email or web address] [facility] [address] [place], [place] [phone] documented in this encounter Visit Diagnoses Diagnosis Chronic bilateral low back pain with left-sided sciatica Wound of right lower extremity, subsequent encounter Injury of left rotator cuff, sequela documented in this encounter Care Teams Continuity Director Relationship Specialty Start Date End Date Coco Leos PA-C [address] [place] [address] PCP - General Physician Ice Cream Vendor 10/25/17 11/24/18 Denny Dey DO [address] [place] [address] Referring Physician Orthopedic Surgery 06/28/18 9 Lacey Perdue MD [address] [phone] Referring Physician Infectious Diseases 06/28/18 documented as of this encounter
--- OUTSIDE RECORDS SUMMARY | 2024-11-23 00:31 | XMS_ITS | Encounter Summary ---
Author Organization [employer] Address [address] [place] [address] Care Team Providers Care Provider Relations Consultant Name Role Phone Coco Leos PA-C Primary Care Provider [phone] Denny Dey DO Unavailable [phone] Lacey Perdue MD Unavailable [phone] Encounter Details Date Type Department Care Team (Latest Contact Info) Description 07/01/2018 12:45 PM CDT - 07/01/2018 11:59 PM CDT Hospital Encounter [facility] [address] [place] [address] Urinary tract infection, site not specified; Encounter for long-term (current) use of antibiotics; Cellulitis of right foot Discharge Disposition: Home - Discharge to [...] Author No 10/25/2017 2:00 PM Deonna Padilla, UTILITIES OPERATOR * Are you blind or do [...] Take 10 mg by mouth nightly. 8 Calcium Carb-Ergocalcife rol 500-200 MG-UNIT TABS Take 2 tablets by mouth. 8 capsaicin (ZOSTRIX) 0.025 % cream Apply [...] by Nasal route as needed. 02/07/2018 8 oxyCODONE-acetam inophen (PERCOCET) 10-325 MG per [...] Date/Time Associated Diagnosis Comments SEDIMENTATION RATE Routine 07/01/2018 12 :45 PM CDT Urinary tract infection, site not specified Encounter for long-term (current) use of antibiotics Cellulitis of right foot CBC AND DIFFERENTIAL Routine 07/01/2018 12:45 PM CDT Urinary tract infection, site not specified Encounter for long-term (current) use of antibiotics Cellulitis of right foot COMPREHENSIVE METABOLIC PANEL Routine 07/01/2018 12:45 PM CDT Urinary tract infection, site not specified Encounter for long-term (current) use of antibiotics Cellulitis of right foot documented in this encounter Results * Sedimentation rate (07/01/2018 12:45 PM CDT) Sedimentation Rate 5 0 - 20 mm/hr [facility] [employer] [facility] Blood specimen (specimen) 07/01/2018 12:45 PM CDT 07/01/2018 3:36 PM CDT us Lacey Perdue MD LAB BLOOD ORDERABLES Final R esult [facility] [address] [place], [place] [phone] * (ABNORMAL) Comprehensive metabolic panel (07/01/2018 12:45 PM CDT) Sodium 140 136 - 145 mmol/L [facility] [employer] Potassium 3.8 3.5 - 5.1 mmol/L [facility] [employer] [facility] Chloride 105 98 - 107 mmol/L [facility] [employer] CO2 28 21 - 32 mmol/L [facility] [employer] [facility] Glucose 114(H) 74 - 106 mg/dL [facility] [employer] [facility] BUN 11 7.0 - 18.0 mg/dL [facility] [employer] Creatinine 0.95 0.70 - 1.30 mg/dL [facility] [employer] Calcium 8.9 8.5 - 10.1 mg/dL [facility] Total Protein 7.1 6.4 - 8.2 g/dL [facility] [employer] [facility] Albumin 3.6 3.4 - 5.0 g/dL [facility] [employer] Bilirubin Total 0.2 0.2 - 1.0 mg/dL [facility] [employer] [facility] Alkaline Phosphatase 98 56 - 119 U/L [facility] AST 31 15 - 37 U/L [facility] ALT 24 12 - 78 U/L [facility] Creatinine Based eGFR >60 [facility] [facility] Comment: GFR REFERENCE RANGE: >60 mL/min/1.73m2 -- An eGFR of > than, or = to 60, may indicate normal renal function or mildly decreased GFR. EGFR /Citizen Of [place] >60 [facility] Comment: -- An eGFR of > than, or = to 60, may indicate normal renal function or mildly decreased GFR. Blood specimen (specimen) 07/01/2018 12:45 PM CDT 07/01/2018 3:36 PM CDT Lacey Perdue MD LAB BLOOD ORDERABLES Final R esult [facility] [employer] [facility] [address] [place], [place] [phone] * CBC and differential (07/01/2018 12:45 PM CDT) WBC 5.94 4.00 - 11.00 th/mm3 [facility] RBC 4.63 4.50 - 6.50 mill/mm3 [facility] HGB 14.0 13.8 - 18.0 g/dL [facility] HCT 42.2 40.0 - 54.0 % [facility] MCV 91.1 76 - 99 fL [facility] MCH 30.2 27.0 - 32.0 pg [facility] MCHC 33.2 30.0 - 35.0 g/dL [facility] Platelets 207 135 - 470 th/mm3 [facility] RDW-CV 43.0 34.9 - 51.3 fL [facility] MPV 10.0 8.0 - 12.5 fL [facility] Differential Type AUTOMATED DIFFERENTIAL [facility] Neutrophil % 53.1 45.0 - 75.0 % [facility] Lymphocytes % 34.3 20.0 - 45.0 % [facility] Monocyte % 9.3 0.0 - 10.0 % [facility] Eosinophils Relative % 2.9 0.0 - 5.0 % [facility] Basophils % 0.2 0.0 - 2.0 % [facility] Immature Granulocytes% 0.2 0.0 - 1.6 % [facility] Neutrophils Absolute 3.16 2.00 - 7.900 th/mm3 [facility] Lymphocytes Absolute 2.04 1.00 - 4.00 th/mm3 [facility] Monos Absolute 0.55 0.0 - 0.80 th/mm3 [facility] Eosinophils Absolute Count 0.17 0.00 - 0.40 th/mm3 [facility] Basophils Absolute 0.01 0.00 - 0.10 th/mm3 [facility] Immature Granulocytes Absolute 0.01 0.0 - 0.20 th/mm3 [facility] Blood specimen (specimen) BLOOD SPECIMEN / Unknown 07/01/2018 12:45 PM CDT 07/01/2018 3:36 PM CDT Lacey Perdue MD LAB BLOOD ORDERABLES Final R esult [facility] [employer] [facility] [address] [place], [place] [phone] documented in this encounter Visit Diagnoses Diagnosis Urinary tract infection, site not specified Encounter for long-term (current) use of antibiotics Cellulitis of right foot Cellulitis and abscess of foot, except toes documented in this encounter Care Teams Provider Relations Consultant Relationship Specialty Start Date End Date Coco Leos PA-C [address] [place] [address] PCP - General Physician Traffic Investigator 10/25/17 11/24/18 Denny Dey DO [address] [place] [address] Referring Physician Orthopedic Surgery 06/28/18 9 Lacey Perdue MD [address] [place] [phone] Referring Physician Infectious Diseases 06/28/18 documented as of this encounter
--- OUTSIDE RECORDS SUMMARY | 2024-11-23 00:31 | XMS_ITS | Encounter Summary ---
Author Organization [employer] Address [address] [place] [address] Care Team Providers Care Heating Unit Installer Name Role Phone oRbertCoco pérez Katt WISE Primary Care Provider [phone] Denny Dey DO Unavailable [phone] Lacey Perdue MD Unavailable [phone] Encounter Details Date Type Department Care Team (Latest Contact Info) Description 07/01/2018 Transcribe Orders [facility] [address] [place] [address] Lacey Perdue MD [address] [phone] Urinary tract infection, site not specified (Primary Dx); Encounter for long-term (current) use of antibiotics; Cellulitis of right foot Social History Tobacco Use Types Packs/Day [...] Author No 10/25/2017 2:00 PM Deonna Padilla, MORTGAGE CLOSER * Do you have serious difficulty walking or climbing stairs? (5 years old or older) Answer Date of Assessment Author No 10/25/2017 2:00 PM Deonna Padilla, MORTGAGE CLOSER * Do you have difficulty dressing or bathing? (5 years old or older) Answer Date of Assessment Author No 10/25/2017 2:00 PM Deonna Padilla, MORTGAGE CLOSER * Because of a physical, mental, or emotional condition, do you have difficulty doing errands alone such as visiting a doctor's office or shopping? (15 years old or older) Answer Date of Assessment Author No 10/25/2017 2:00 PM Deonna Padilla, MORTGAGE CLOSER documented as of this encounter Mental Status [...] documented as of this encounter Results * Sedimentation rate (07/01/2018 12:45 PM CDT) Sedimentation Rate 5 0 - 20 mm/hr [facility] Blood specimen (specimen) 07/01/2018 12:45 PM CDT 07/01/2018 3:36 PM CDT us Lacey Perdue MD LAB BLOOD ORDERABLES Final R esult [facility] [address] [place], [place] [phone] * (ABNORMAL) Comprehensive metabolic panel (07/01/2018 12:45 PM CDT) Sodium 140 136 - 145 mmol/L [facility] Potassium 3.8 3.5 - 5.1 mmol/L [facility] Chloride 105 98 - 107 mmol/L [facility] CO2 28 21 - 32 mmol/L [facility] Glucose 114(H) 74 - 106 mg/dL [facility] BUN 11 7.0 - 18.0 mg/dL [facility] Creatinine 0.95 0.70 - 1.30 mg/dL [facility] Calcium 8.9 8.5 - 10.1 mg/dL [facility] Total Protein 7.1 6.4 - 8.2 g/dL [facility] Albumin 3.6 3.4 - 5.0 g/dL [facility] Bilirubin Total 0.2 0.2 - 1.0 mg/dL [facility] Alkaline Phosphatase 98 56 - 119 U/L [facility] AST 31 15 - 37 U/L [facility] ALT 24 12 - 78 U/L [facility] Creatinine Based eGFR >60 [facility] Comment: GFR REFERENCE RANGE: >60 mL/min/1.73m2 -- An eGFR of > than, or = to 60, may indicate normal renal function or mildly decreased GFR. EGFR /[place] >60 [facility] Comment: -- An eGFR of > than, or = to 60, may indicate normal renal function or mildly decreased GFR. Blood specimen (specimen) 07/01/2018 12:45 PM CDT 07/01/2018 3:36 PM CDT us Lacey Perdue MD LAB BLOOD ORDERABLES Final R esult [facility] [address] [place], [place] [phone] * CBC and differential (07/01/2018 12:45 PM CDT) WBC 5.94 4.00 - 11.00 th/mm3 [facility] RBC 4.63 4.50 - 6.50 mill/mm3 [facility] HGB 14.0 13.8 - 18.0 g/dL [facility] HCT 42.2 40.0 - 54.0 % [facility] MCV 91.1 76 - 99 fL [facility] MCH 30.2 27.0 - 32.0 pg [facility] MCHC 33.2 30.0 - 35.0 g/dL [facility] Platelets 207 135 - 470 th/mm3 [facility] RDW-CV 43.0 34.9 - 51.3 fL [facility] MPV 10.0 8.0 - 12.5 fL [facility] Differential Type AUTOMATED DIFFERENTIAL [facility] Neutrophil % 53.1 45.0 - 75.0 % [facility] Lymphocytes % 34.3 20.0 - 45.0 % [facility] Monocyte % 9.3 0.0 - 10.0 % [facility] Eosinophils Relative % 2.9 0.0 - 5.0 % [facility] Basophils % 0.2 0.0 - 2.0 % [facility] Immature Granulocytes% 0.2 0.0 - 1.6 % [facility] Neutrophils Absolute 3.16 2.00 - 7.900 th/mm3 [facility] Lymphocytes Absolute 2.04 1.00 - 4.00 th/mm3 [facility] Monos Absolute 0.55 0.0 - 0.80 th/mm3 [facility] Eosinophils Absolute Count 0.17 0.00 - 0.40 th/mm3 [facility] Basophils Absolute 0.01 0.00 - 0.10 th/mm3 [facility] Immature Granulocytes Absolute 0.01 0.0 - 0.20 th/mm3 [facility] Blood specimen (specimen) BLOOD SPECIMEN / Unknown 07/01/2018 12:45 PM CDT 07/01/2018 3:36 PM CDT Lacey Perdue MD LAB BLOOD ORDERABLES Final R esult [facility] [address] [place], [place] [phone] documented in this encounter Visit Diagnoses Diagnosis Urinary tract infection, site not specified- Primary Encounter for long-term (current) use of antibiotics Cellulitis of right foot Cellulitis and abscess of foot, except toes documented in this encounter Care Teams Heating Unit Installer Relationship Specialty Start Date End Date Coco Leos PA-C [address] [place] [address] PCP - General Physician [facility] Hand 10/25/17 11/24/18 Denny Dey DO [address] [place] [address] Referring Physician Orthopedic Surgery 06/28/18 9 Lacey Perdue MD [address] [phone] Referring Physician Infectious Diseases 06/28/18 documented as of this encounter
--- OUTSIDE RECORDS SUMMARY | 2024-11-23 00:31 | XMS_ITS | Encounter Summary ---
Author Organization [employer] Address [address] [place] [address] Care Team Providers Care Ring Making Machine Operator Name Role Phone Coco Leos PA-C Primary Care Provider [phone] Denny eDy DO Unavailable [phone] Lacey Perdue MD Unavailable [phone] Reason for Referral * Referral (Routine) - Closed Specialty Diagnoses / Procedures Referred By Celine almaguer Referred To Contact Internal Medicine Diagnoses Cellulitis of right lower extremity Wound of right lower extremity, subsequent encounter Leonard Jasso APRN [address] [place] [address] Phone: tel: fax: [address] [address] Phone: tel: fax: Referral ID Status Reason Start Date Expiration Date V isits Requested Visits Authorized [id number] Closed Specialty Services Required 06/24/2018 06/24/2019 1 1 Reason for Visit * Reason Comments Establish Care Encounter Details Date Type Department Care Team (Late st Contact Info) Description 06/24/2018 2:15 PM CDT Office Visit [address] [address] Melody Jassoony W, PORT CRANE OPERATOR [address] [place] [address] Cellulitis of right lower extremity (Primary Dx); Wound of right lower extremity, subsequent encounter; Recurrent major depressive disorder, in full remission (HCC); Essential hypertension Social History Tobacco Use Types Packs/Day Years [...] Sign Reading Time Taken Comments Blood Pressure 120/86 06/24/2018 2:46 PM CDT Pulse 114 06/24/2018 2:46 PM CDT Temperature 36.9 ??C (98.4 ??F) 06/24/2018 2:46 PM CD T Respiratory Rate 20 06/24/2018 2:46 PM CDT Oxygen Saturation 95% 06/24/2018 2:46 PM CDT Inhaled Oxygen Concentration - - [...] * Patient Instructions* Leonard Jasso APNP - 06/24/2018 2:15 PM CDT Recommend establishing with Dr. Mercer, Internal Medicine, due to multiple medical conditions requiring frequent monitoring. Follow up with Dr. Mercer once we get all records available for review. documented in this encounter Progress Notes * Leonard Jasso APNP - 06/24/2018 2:15 PM CDT Chief Complaint Patient presents with ??? Establish Care Subjective: Patient ID: Edilberto Hawley is a 62 y.o. male. Pt being treated for cellulitis by physicians in [place]. Pt. Has PICC and wound vac in place. Pt states he is seeking a new PCP due to he is living in [place] and cannot keep driving that farto see a regular Family Practice Provider. Explained to pt I need to review medical records and diagnosis' before I can agree to be the pts new PCP and treat with chronic pain meds. Explained he may need an Internal Medicine Physician for hisbest benefit. History provided by: Patient Patient's problem list, [...] intolerance. Genitourinary: Negative for difficulty urinating. Musculoskeletal: PICC right antecubital space. Skin: Positive for wound (Right lower extremity lateral malleous.). Negative for rash. Allergic/Immunologic: Negative for environmental allergies and food allergies. Neurological: Negative for dizziness, tremors, speech difficulty, weakness and headaches. Psychiatric/Behavioral: Negative for agitation and behavioral problems. All other systems reviewed and are negative. Objective: BP 120/86 (BP Location: LUE, BP Position: sitting, BP Cuff Size: Reg) Pulse 114 Temp 36.9 ??C (98.4 ??F) (Tympanic) Resp 20 SpO2 95% There is no height or weight on file to calculate BMI. Physical Exam Constitutional: He is oriented to person, place, and time. He appears well- developed and well-nourished. No distress. HENT: Head: Normocephalic and atraumatic. Eyes: Conjunctivae are normal. Pupils are equal, round, and reactive to light. Neck: Normal range of motion. Neck supple. Cardiovascular: Normal rate, regular rhythm and normal heart sounds. Pulmonary/Chest: Effort normal and breath sounds normal. No respiratory distress. He has no wheezes. Abdominal: Soft. He exhibits no distension. There is no tenderness. Musculoskeletal: PICC line right antecubital space. Antibiotic infusion. Lymphadenopathy: He has no cervical adenopathy. Neurological: He is alert and oriented to person, place, and time. Skin: Skin is warm and dry. He is not diaphoretic. Wound right lower extremity. Area of necrotic tissue 11cm long and 3cm wide surrounded by area of erythema and edema that circumferences entire right ankle. Psychiatric: He has a normal mood and affect. His behavior is normal. Nursing note and vitals reviewed. Assessment/Orders: Diagnoses and all orders for this visit: Cellulitis of right lower extremity - Referral to Internal Medicine Wound of right lower extremity, subsequent encounter - Referral to Internal Medicine Recurrent major depressive disorder, in full remission (HCC) Essential hypertension Plan: Recommend referral for consult of internal medicine- Dr. Mercer due to multiple complex medical conditions. Continue to follow up with wound management. Take medication exactly as prescribed. Follow up as directed for routine lab work and BP checks. Weight loss and low sodium/salt diet can help decrease blood pressure. If you smoke quite. Smoking is directly related to heart, lung, and vascular disease. Take medication daily as prescribed. Reviewed potential side effects of medication with patient. Patient chooses treatment. To Er/911 if ever Suicidal or Homicidal. Follow up as discussed and make appointment before leaving office today. documented in this encounter Plan of Treatment [...] encounter Visit Diagnoses Diagnosis Cellulitis of right lower extremity- Primary Cellulitis and abscess of leg, except foot Wound of right lower extremity, subsequent encounter Recurrent major depressive disorder, in full remission Essential hypertension Unspecified essential hypertension documented in this encounter Care Teams Ring Making Machine Operator Relationship Specialty Start Date End Date Coco Leos PA-C [address] [place] [address] PCP - General Physician Secondary Connector Armature 10/25/17 11/24/18 Denny Dey DO [address] [place] [address] Referring Physician Orthopedic Surgery 06/28/18 9 Lacey Perdue MD [address] [phone] Referring Physician Infectious Diseases 06/28/18 documented as of this encounter
--- OUTSIDE RECORDS SUMMARY | 2024-11-23 00:31 | XMS_ITS | Encounter Summary ---
Author Organization [employer] Address [address] [place] [address] Care Team Providers Care Waste Machine Tender Name Role Phone Coco Leos PA-C Primary Care Provider [phone] Denny Dey DO Unavailable [phone] Lacey Perdue MD Unavailable [phone] Reason for Visit * Reason Comments Medication Refill Encounter Details Date Type Department Care Team (Late st Contact Info) Description 08/09/[address] [phone] Leonard Jasso, WORLD RENOWNED CHEF AND RESTAURANT OWNER [address] [place], [place] [phone] Social History Tobacco Use Types Packs/Day Years [...] of Assessment Author No 10/25/2017 2:00 PM PORTABLE TRACKMAN Galvan, Am y S, MANAGER CLEANING * Do you have serious difficulty walking or climbing stairs? (5 years old or older) Answer Date of Assessment Author No 10/25/2017 2:00 PM JOHN Galvan Am y S, MANAGER CLEANING * Do you have difficulty dressing or bathing? (5 years old or older) Answer Date of Assessment Author No 10/25/2017 2:00 PM JOHN Galvan Am y S, MANAGER CLEANING * Because of a physical, mental, or emotional condition, do you have difficulty doing errands alone such as visiting a doctor's office or shopping? (15 years old or older) Answer Date of Assessment Author No 10/25/2017 2:00 PM JOHN Galvan Am y S, MANAGER CLEANING documented as of this encounter Mental Status * Because of a physical, mental, or emotional condition, do you have serious difficulty concentrating, remembering, or making decisions? (5 years old or older) Answer Entry Date Author No 10/25/2017 2:00 PM Deonna Padilla, MANAGER CLEANING documented in this encounter Plan of Treatment Not on file documented as of this encounter Goals Goal Patient Goal Type Associated Problems Recent Progress Patient-Stated? Author Blood Pressure < 140/90 Blood Pressure 134/86(2022 2:25 PM CDT) No Leonard Jasso APRN documented as of this encounter Visit Diagnoses Not on filedocumented in this encounter Care Teams Waste Machine Tender Relationship Specialty Start Date End Date Coco Leos PA-C [address] [place] [phone] PCP - General Physician Library Clerk 10/25/17 11/24/18 Denny Dey DO [address] [place] [address] Referring Physician Orthopedic Surgery 06/28/18 9 Lacey Perdue MD [address] [phone] Referring Physician Infectious Diseases 06/28/18 documented as of this encounter
--- OUTSIDE RECORDS SUMMARY | 2024-11-23 00:31 | XMS_ITS | Encounter Summary ---
Author Organization [employer] Address [address] [place] [address] Care Team Providers Care Lay Midwife Name Role Phone Coco Leos PA-C Primary Care Provider [phone] Denny Dey DO Unavailable [phone] Lacey Perdue MD Unavailable [phone] Reason for Visit * Reason Onset Date Comments Medication Management 08/02/2018 Encounter Details Date Type Department Care Team (Late st Contact Info) Description 08/02/[address] [address] Yael Sim, [facility] [address] [facility] [address] [place] [address] Medication Management Social History Tobacco [...] of Assessment Author No 10/25/2017 2:00 PM TRACTOR SWEEPER DRIVER Galvan, Am y S, BALE SEWER * Do you have serious difficulty walking or climbing stairs? (5 years old or older) Answer Date of Assessment Author No 10/25/2017 2:00 PM JOHN Galvan Am y S, BALE SEWER * Do you have difficulty dressing or bathing? (5 years old or older) Answer Date of Assessment Author No 10/25/2017 2:00 PM TRACTOR SWEEPER DRIVER Cole Am y S, BALE SEWER * Because of a physical, mental, or emotional condition, do you have difficulty doing errands alone such as visiting a doctor's office or shopping? (15 years old or older) Answer Date of Assessment Author No 10/25/2017 2:00 PM TRACTOR SWEEPER DRIVER Cole Am y S, BALE SEWER documented as of this encounter Mental Status * Because of a physical, mental, or emotional condition, do you have serious difficulty concentrating, remembering, or making decisions? (5 years old or older) Answer Entry Date Author No 10/25/2017 2:00 PM Deonna Padilla S, BALE SEWER documented in this encounter Miscellaneous Notes * Telephone Encounter - Yael Sim LPN - 08/02/2018 4:10 PM CDT Pt called to request pcp permission to take some of his spouse's norco. Pt sts that he is out of percocet as of last night et that he is having extra pain d/t the weather. Notified pcp. PCP sts that pt needs to be seen in the offc tomorrow et can take ibuprofen 800 mg every 8 hours until seen in office tomorrow. Notified pt of pcp instructions. Pt verbalized understanding et scheduled appt for 08/03/2018. documented in this encounter Plan of Treatment Not on file documented as of this encounter Goals Goal Patient Goal Type Associated Problems Recent Progress Patient-Stated? Author Blood Pressure < 140/90 Blood Pressure 134/86(2022 2:25 PM CDT) No Leonard Jasso APRN documented as of this encounter Visit Diagnoses Not on filedocumented in this encounter Care Teams Lay Midwife Relationship Specialty Start Date End Date Coco Leos PA-C [address] [place] [id number] PCP - General Physician Endoscopy Specialty Technician 10/25/17 11/24/18 Denny Dey DO [address] [place] [address] Referring Physician Orthopedic Surgery 06/28/18 9 Lacey Perdue MD [address] [phone] Referring Physician Infectious Diseases 06/28/18 documented as of this encounter
--- OUTSIDE RECORDS SUMMARY | 2024-11-23 00:31 | XMS_ITS | Encounter Summary ---
Author Organization [employer] Address [address] [place] [address] Care Team Providers Care Audit Senior Associate Name Role Phone Coco Leos PA-C Primary Care Provider [phone] Denny Dey DO Unavailable [phone] Lacey Perdue MD Unavailable [phone] Reason for Visit * Reason Comments Medication Refill right ankle infectio n, left shoulder pain, lower left back Encounter Details Date Type Department Care Team (Late st Contact Info) Description 08/03/2018 2:15 PM CDT Office Visit [address] [id number] Leonard Jasso, UNDERGROUND [employer]ING SECTION FOREMAN [address] [place], [place] [address] Chronic bilateral low back pain with left-sided sciatica (Primary Dx); Wound of right lower extremity, subsequent encounter; Injury of left rotator cuff, sequela Social [...] Sign Reading Time Taken Comments Blood Pressure 102/68 08/03/2018 2:03 PM CDT Pulse 88 08/03/2018 2:03 PM CDT Temperature 36.9 ??C (98.4 ??F) 08/03/2018 2:03 PM CD T Respiratory Rate - - Oxygen Saturation 98% 08/03/2018 2:03 PM CDT Inhaled Oxygen Concentration - - Weight 83.2 kg (183 lb 6.4 oz) 08/03/2018 2:03 P M CDT Height 180.3 cm (5' 10.98 ) 08/03/2018 2:03 PM C DT Body Mass Index 25.59 08/03/2018 2:03 PM CDT documented in this [...] * Patient Instructions* Leonard Jasso APNP - 08/03/2018 2:15 PM CDT Take medications exactly as prescribed. [...] in the agreement. documented in this encounter Progress Notes * Leonard Jasso APNP - 08/03/2018 2:15 PM CDT Chief Complaint Patient presents with ??? Medication Refill right ankle infection, left shoulder pain, lower left back Subjective: Patient ID: Edilberto Hawley is a 62 y.o. male. History provided by: Patient Patient's problem list, [...] for wound (Right lower extremity lateral malleous. 2.5cm wide 6cm long open granulation tissue. Clear drainage. ). Negative for rash. Allergic/Immunologic: Negative for environmental allergies and food allergies. Neurological: Negative for dizziness, tremors, speech difficulty, weakness and headaches. Psychiatric/Behavioral: Negative for agitation and behavioral problems. All other systems reviewed and are negative. Objective: BP 102/68 (BP Location: RUE, BP Position: sitting, BP Cuff Size: Reg) Pulse 88 Temp 36.9 ??C (98.4 ??F) (Tympanic) Ht 1.803 m (5' 10.98 ) Wt 83.2 kg (183 lb 6.4 oz) SpO2 98% BMI 25.59 kg/m?? Body mass index is 25.59 kg/m??. Physical Exam Constitutional: He is oriented [...] is no tenderness. Musculoskeletal: He exhibits edema (Trace edema right lower extremity ankle/foot.). Lymphadenopathy: He has no cervical adenopathy. Neurological: He is alert and oriented to person, place, and time. Skin: Skin is warm and dry. He is not diaphoretic. Wound right lower extremity significantly better healing since last visit. Open area filled in withgranulation tissue. 2.5cm wide 6.0cm long with dry dressing. Clear drainage. Scant amounts. Psychiatric: He has a normal mood and affect. His behavior is normal. Nursing note and vitals reviewed. Assessment/Orders: Diagnoses and all orders for this visit: Chronic bilateral low back pain with left-sided sciatica - Urine Drug Screen; Future Wound of right lower extremity, subsequent encounter - Urine Drug Screen; Future Injury of left rotator cuff, sequela - Urine Drug Screen; Future Other orders - oxyCODONE-acetaminophen (PERCOCET) 10-325 MG per tablet; Take 1 tablet by mouth every 6 (six) hours as needed for Pain. - MethylPREDNISolone (MEDROL) 4 MG dosepak; Follow package directions. Plan: Take medications exactly as prescribed. Warm [...] Urine Drug Screen (08/03/2018 3:00 PM CDT) Pathologist [facility] Cannabinoids,UR NEG NEG [facility] Comment:(Cutoff is 50 ng/mL) Cocaine,UR NEG NEG [facility] Comment:(Cutoff is 150 ng/mL ) Opiates,UR NEG NEG [facility] Comment:(Cutoff is 100 ng/mL ) Amphetamines,UR NEG NEG [facility] Comment:(Cut off is 500 ng/m l) Phencyclidine,UR NEG NEG [facility] Comment:(Cutoff is 25 ng/mL) Tricyclics UR POS(A) NEG [facility] Comment:(Cut off is 200 ng/m L) Barbiturates,UR NEG NEG [facility] Comment:(Cutoff is 200 ng/mL ) Methadone Screen NEG NEG [facility] Comment:(Cutoff is 200 ng/mL ) Benzodiazepines,UR NEG NEG [facility] Comment:(Cutoff is 150 ng/mL ) Oxycodone Screen,UR NEG NEG [facility] Comment:(Cutoff is 100 ng/mL ) Propoxyphene,UR NEG NEG [facility] Comment:(Cut off is 200 ng/m L) Buprenorphine UR NEG NEG [facility] Comment:(Cutoff is 10 ng/mL) Methamphetamine NEG NEG [facility] Comment: (Cut off is 500 ng/ml) ---- URINE TOXICOLOGY RESULTS ARE UNCONFIRMED, QUALITATIVE RESULTS ??FOR MEDICAL PURPOSES ONLY. Urine specimen (specimen) 08/03/2018 3:00 PM CDT 08/03/2018 4:14 PM CDT Leonard Jasso APRN URINE ORDERABLES Veronica alexandre Result [facility] [employer] [facility] [address] [place], [place] [phone] documented in this encounter Visit Diagnoses Diagnosis Chronic bilateral low back pain with left-sided sciatica- Primary Wound of right lower extremity, subsequent encounter Injury of left rotator cuff, sequela documented in this encounter Care Teams Audit Senior Associate Relationship Specialty Start Date End Date Coco Leos PA-C [address] [place] [address] PCP - General Physician Farm Crew Leader 10/25/17 11/24/18 Denny Dey DO [address] [place] [id number] Referring Physician Orthopedic Surgery 06/28/18 9 Lacey Perdue MD [address] [phone] Referring Physician Infectious Diseases 06/28/18 documented as of this encounter
--- OUTSIDE RECORDS SUMMARY | 2024-11-23 00:31 | XMS_ITS | Encounter Summary ---
Author Organization [employer] Address [address] [place] [address] Care Team Providers Care Customer Support Technician Name Role Phone Coco Leos PA-C Primary Care Provider [phone] Encounter Details Date Type Department Care Team (Latest Contact Info) Description 06/24/2018 1:00 PM CDT - 06/24/2018 11:59 PM CDT Hospital Encounter [facility] [address] [place] [phone] Cellulitis of right foot; Encounter for long-term (current) use of antibiotics Discharge Disposition: Home - Discharge to Home [...] Deonna Padilla, GEORGE * Do you have serious difficulty walking [...] Date/Time Associated Diagnosis Comments SEDIMENTATION RATE Routine 06/24/2018 1: 00 PM CDT Cellulitis of right foot Encounter for long-term (current) use of antibiotics CBC AND DIFFERENTIAL Routine 06/24/2018 1:00 PM CDT Cellulitis of right foot Encounter for long-term (current) use of antibiotics C-REACTIVE PROTEIN Routine 06/24/2018 1: 00 PM CDT Cellulitis of right foot Encounter for long-term (current) use of antibiotics COMPREHENSIVE METABOLIC PANEL Routine 06/24/2018 1:00 PM CDT Cellulitis of right foot Encounter for long-term (current) use of antibiotics documented in this encounter Results * (ABNORMAL) Sedimentation rate (06/24/2018 1:00 PM CDT) Sedimentation Rate 46(H) 0 - 20 mm/hr [facility] Blood specimen (specimen) 06/24/2018 1:00 PM CDT 06/24/2018 2:26 PM CDT us Lacey Perdue MD LAB BLOOD ORDERABLES Final R esult [facility] [address] [place], [place] [phone] * C-reactive protein (06/24/2018 1:00 PM CDT) CRP 0.80 0.2 - 0.9 mg/dL [facility] Blood specimen (specimen) 06/24/2018 1:00 PM CDT 06/24/2018 2:26 PM CDT us Lacey Perdue MD LAB BLOOD ORDERABLES Final R esult [facility] [facility] [address] [place], [place] [phone] * (ABNORMAL) Comprehensive metabolic panel (06/24/2018 1:00 PM CDT) Sodium 138 136 - 145 mmol/L [facility] [facility] Potassium 3.8 3.5 - 5.1 mmol/L [facility] [employer] [facility] Chloride 103 98 - 107 mmol/L [facility] [employer] [facility] CO2 28 21 - 32 mmol/L [facility] [employer] [facility] Glucose 162(H) 74 - 106 mg/dL [facility] BUN 12 7.0 - 18.0 mg/dL [facility] [employer] [facility] Creatinine 0.97 0.70 - 1.30 mg/dL [facility] [employer] [facility] Calcium 8.7 8.5 - 10.1 mg/dL [facility] [employer] [facility] Total Protein 7.1 6.4 - 8.2 g/dL [facility] Albumin 3.6 3.4 - 5.0 g/dL [facility] [employer] [facility] Bilirubin Total 0.4 0.2 - 1.0 mg/dL [facility] Alkaline Phosphatase 96 56 - 119 U/L [facility] AST 22 15 - 37 U/L [facility] ALT 17 12 - 78 U/L [facility] [employer] [facility] Creatinine Based eGFR >60 [facility] Comment: GFR REFERENCE RANGE: >60 mL/min/1.73m2 -- An eGFR of > than, or = to 60, may indicate normal renal function or mildly decreased GFR. EGFR /German >60 [facility] Comment: -- An eGFR of > than, or = to 60, may indicate normal renal function or mildly decreased GFR. Blood specimen (specimen) 06/24/2018 1:00 PM CDT 06/24/2018 2:26 PM CDT us Lacey Perdue MD LAB BLOOD ORDERABLES Final R esult [facility] [employer] [facility] [address] [place], [place] [phone] * CBC and differential (06/24/2018 1:00 PM CDT) WBC 6.72 4.00 - 11.00 th/mm3 [facility] RBC 4.58 4.50 - 6.50 mill/mm3 [facility] HGB 13.8 13.8 - 18.0 g/dL [facility] HCT 40.9 40.0 - 54.0 % [facility] MCV 89.3 76 - 99 fL [facility] MCH 30.1 27.0 - 32.0 pg [facility] MCHC 33.7 30.0 - 35.0 g/dL [facility] Platelets 227 135 - 470 th/mm3 [facility] [employer] [facility] RDW-CV 40.2 34.9 - 51.3 fL [facility] MPV 10.2 8.0 - 12.5 fL [facility] [employer] [facility] Differential Type AUTOMATED DIFFERENTIAL [facility] [employer] [facility] Neutrophil % 58.1 45.0 - 75.0 % [facility] Lymphocytes % 31.8 20.0 - 45.0 % [facility] Monocyte % 8.2 0.0 - 10.0 % [facility] Eosinophils Relative % 1.5 0.0 - 5.0 % [facility] Basophils % 0.3 0.0 - 2.0 % [facility] Immature Granulocytes% 0.1 0.0 - 1.6 % [facility] Neutrophils Absolute 3.90 2.00 - 7.900 th/mm3 [facility] Lymphocytes Absolute 2.14 1.00 - 4.00 th/mm3 [facility] Monos Absolute 0.55 0.0 - 0.80 th/mm3 [facility] Eosinophils Absolute Count 0.10 0.00 - 0.40 th/mm3 [facility] Basophils Absolute 0.02 0.00 - 0.10 th/mm3 [facility] Immature Granulocytes Absolute 0.01 0.0 - 0.20 th/mm3 [facility] Blood specimen (specimen) BLOOD SPECIMEN / Unknown 06/24/2018 1:00 PM CDT 06/24/2018 2:26 PM CDT us Lacey Perdue MD LAB BLOOD ORDERABLES Final R esult [facility] [address] [place], [place] [phone] documented in this encounter Visit Diagnoses Diagnosis Cellulitis of right foot Cellulitis and abscess of foot, except toes Encounter for long-term (current) use of antibiotics documented in this encounter Care Teams Customer Support Technician Relationship Specialty Start Date End Date Coco Leos PA-C [address] [place] [id number] PCP - General Physician Vegetable Ii Farmworker 10/25/17 11/24/18 documented as of this encounter
--- OUTSIDE RECORDS SUMMARY | 2024-11-23 00:31 | XMS_ITS | Encounter Summary ---
Author Organization [employer] Address [address] [place] [address] Care Team Providers Care Weapons Designer Name Role Phone Coco Leos PA-C Primary Care Provider [phone] Denny Dey DO Unavailable [phone] Lacey Perdue MD Unavailable [phone] Reason for Referral * MRI/CAT Scan (Routine) - Closed Specialty Diagnoses / Procedures Referred By Celine almaguer Referred To Contact Radiology Diagnoses Staphylococcal arthritis of right ankle Cellulitis of right ankle Procedures MRI Lower Extremity Joint w wo Contrast Logan Jimenez NP Phone: tel: fax: Referral ID Status Reason Start Date Expiration Date Visits Re quested Visits Authorized [id number] Closed 09/02/2018 09/02/2019 1 1 Reason for Visit * Reason Comments Leg Swelling RLE swelling. Onset 2 days ago. Encounter Details Date Type Department Care Team (Latest Contact Info) Description 09/01/2018 3:15 PM CDT Office Visit [place] [address] [place] [address] Logan Jimenez NP [address] [place] [address] Staphylococcal arthritis of right ankle (HCC) (Primary Dx); Cellulitis of right ankle; Substance abuse; Narcotic drug use; Encounter for narcotic contract discussion Social History Tobacco Use Types Packs/Day Years [...] Reading Time Taken Comments Blood Pressure 116/74 09/01/2018 3:07 PM CDT Pulse 96 09/01/2018 3:07 PM CDT Temperature 37 ??C (98.6 ??F) 09/01/2018 3:07 PM CDT Respiratory Rate 12 09/01/2018 3:07 PM CDT Oxygen Saturation 98% 09/01/2018 3:07 PM CDT Inhaled Oxygen Concentration - - Weight 84.9 kg (187 lb 3.2 oz) 09/01/2018 3:07 P M CDT Height - - Body Mass Index 26.12 08/03/2018 2:03 PM CDT documented in this [...] No 10/25/2017 2:00 PM Nessa Padilla ARNP documented as of this encounter Mental Status * Because of a physical, mental, or emotional condition, do you have serious difficulty concentrating, remembering, or making decisions? (5 years old or older) Answer Entry Date Author No 10/25/2017 2:00 PM Deonna Padilla ARNP documented in this encounter Patient Instructions * Patient Instructions* Brad Jimenezpetey Crockett, POT MAKER - 09/01/2018 3:40 PM CDT Images from the original note were not included. Cellulitis: Care Instructions Your Care Instructions Cellulitis is a skin infection caused by bacteria, most often strep or staph. It often occurs aftera break in the skin from a scrape, cut, bite, or puncture, or after a rash. Cellulitis may be treated without doing tests to find out what caused it. But your doctor may do tests, if needed, to look for a specific bacteria, like methicillin-resistant Staphylococcus aureus (MRSA). The doctor has checked you carefully, but [...] for yourself at home? ?? Take your antibiotics as directed. Do not stop taking them just because you feel better. You need to take the full course of antibiotics. ?? Prop up the infected area on pillows to reduce pain and swelling. Try to keep the area above thelevel of your heart as often as you can. ?? If your doctor told you how to care for your wound, follow your doctor's instructions. If you did not get instructions, follow this general advice: ?? Wash the wound with clean water 2 times a day. Don't use hydrogen peroxide or alcohol, which canslow healing. ?? You may cover the wound with a thin layer of petroleum jelly, such as Vaseline, and a nonstick bandage. ?? Apply more petroleum jelly and replace the bandage as needed. ?? Be safe with medicines. Take pain medicines exactly as directed. ?? If the doctor gave you a prescription medicine for pain, take it as prescribed. ?? If you are not taking a prescription pain medicine, ask your doctor if you can take an xlzq-fqn-hbdjfyn medicine. To prevent cellulitis in the future ?? Try to prevent cuts, scrapes, or other injuries to your skin. Cellulitis most often occurs wherethere is a break in the skin. ?? If you get a scrape, cut, mild burn, or bite, wash the wound with clean water as soon as you priti help avoid infection. Don't use hydrogen peroxide or alcohol, which can slow healing. ?? If you have swelling in your legs (edema), support stockings and good skin care may help preventleg sores and cellulitis. ?? Take care of your feet, especially if you have diabetes or other conditions that increase the risk of infection. Wear shoes and socks. Do not go barefoot. If you have athlete's foot or other skin problems on your feet, talk to your doctor about how to treat them. When should you call for help? Call your doctor now or seek immediate medical care if: ? You have signs that your infection is getting worse, such as: ?? Increased pain, swelling, warmth, or redness. ?? Red streaks leading from the area. ?? Pus draining from the area. ?? A fever. ? You get a rash. ??Watch closely for changes in your health, and be sure to contact your doctor if: ? You do not get better as expected. Where can you learn more? Go to the Search Medical Library option found under the Resources tab in [employer] [email or web address] If you do not have access to [employer], you can visit [email or web address] and select Linksy from the menu on the left. Enter X309 in the searchbox to learn more about Cellulitis: Care Instructions. Not on [employer]? Go to [email or web address]/ and click the Sign Up Now linkto request an activation code. Current as of: March 02, 2018 Content Version: 11.8 ?? [id number] [employer]. Care instructions adapted under license by your healthcare professional. This care instruction is for use with your licensed healthcare professional. If you have questions about a medical condition or this instruction, always ask your healthcare professional. [facility] disclaims any warranty or liability for your use of this information. Osteomyelitis: Care Instructions Your Care Instructions Osteomyelitis (say sh-dcnt-sy-ow-so-XJ-tus ) is a bone infection. It is caused by bacteria. The bacteria can infect the bone where it has been injured, or they can be carried through the blood from another area in the body. Osteomyelitis can be a short- or long-term problem. It is treated with antibiotics. You may get theantibiotics as pills or through a needle in a vein (IV). You will probably get treatment in the hospital at first. The type of treatment depends on the type of bacteria causing the infection, the bones affected, and how bad the infection is. Sometimes people need surgery to drain pus from bone or to fix damaged bone. Short-term osteomyelitis that is treated right away usually can be cured. But the long-term form sometimes comes back after treatment. You can help your chances of stopping the infection by taking your medicines as directed. Follow-up care is a whalen part of your treatment and safety. Be sure to make and go to all appointments, and call your doctor if you are having problems. It's also a good idea to know your test resultsand keep a list of the medicines you take. How can you care for yourself at home? ?? Take your antibiotics as directed. Do not stop taking them just because you feel better. You need to take the full course of antibiotics. ?? Take pain medicines exactly as directed. ?? If the doctor gave you a prescription medicine for pain, take it as prescribed. ?? If you are not taking a prescription pain medicine, ask your doctor if you can take an ypyt-gcg-nunzzgf medicine. ?? Do mild exercise and stretching if your doctor says it is okay. This can help keep your bones and muscles healthy. Avoid strenuous work or exercise until your doctor says you can do it. ?? Consider physical therapy if your doctor suggests it. Physical therapy may help you have a normal range of movement. ?? Do not smoke. Smoking can slow healing of the infection. If you need help quitting, talk to yourdoctor about stop-smoking programs and medicines. These can increase your chances of quitting for good. When should you call for help? Call 911 anytime you think you may need emergency care. For example, call if: ? You have severe bone pain. ??Call your doctor now or seek immediate medical care if: ? You continue to have bone pain. ? You have signs of infection, such as: ?? Increased pain, swelling, warmth, or redness. ?? Red streaks leading from a wound. ?? Pus draining from a wound. ?? A fever. ??Watch closely for changes in your health, and be sure to contact your doctor if: ? You do not get better as expected. Where can you learn more? Go to the Search Medical Library option found under the Resources tab in [employer] [email or web address] If you do not have access to [employer], you can visit [email or web address]/patient-care and select Health Library from the menu on the left. Enter B364 in the searchbox to learn more about Osteomyelitis: Care Instructions. Not on [employer]? Go to [email or web address]/ and click the Sign Up Now linkto request an activation code. Current as of: October 05, 2017 Content Version: 11.8 ?? [employer]. Care instructions adapted under license by your healthcare professional. This care instruction is for use with your licensed healthcare professional. If you have questions about a medical condition or this instruction, always ask your healthcare professional. [facility] disclaims any warranty or liability for your use of this information. Venous Skin Ulcer: Care Instructions Your Care Instructions A venous skin ulcer is a shallow wound that develops when the leg veins do not move blood back to the heart normally. Your veins have one-way valves that keep blood flowing toward the heart. When the valves are damaged, the blood can back up and pool in the vein. The blood may leak out of the vein into tissue aroundthe vein. The tissue can break down and form an ulcer. The first sign of a venous skin ulcer is skin that turns dark red or purple over the area where theblood is leaking out of the vein. The skin also may become thick, dry, and itchy. Without treatment, an ulcer may form. The ulcer may be painful. Your leg also may swell and ache. If the ulcer becomes infected, the infection may cause an odor, and pus may drain from the ulcer. The area around the ulcer also may be more tender and red. Follow-up care is a whalen part of your treatment and safety. Be sure to make and go to all appointments, and call your doctor if you are having problems. It's also a good idea to know your test resultsand keep a list of the medicines you take. How can you care for yourself at home? ?? Follow your doctor's instructions on how to clean the ulcer and change the bandage. ?? If your doctor prescribed antibiotics, take them as directed. Do not stop taking them just because you feel better. You need to take the full course of antibiotics. ?? Lift your legs above the level of your heart as often as possible. For example, lie down and then prop up your legs with pillows. ?? Wear compression stockings or bandages. They help the blood circulate in your legs. And they help prevent blood from pooling in your legs. But there are different types of stockings, and they needto fit right. So your doctor will recommend what you need. ?? After your ulcer has healed, continue to wear compression stockings. Take them off only when youbathe and sleep. Compression helps your blood circulate and helps prevent other ulcers from forming. ?? Walk daily. Walking helps your blood circulation. When should you call for help? Call your doctor now or seek immediate medical care if: ? You have symptoms of infection, such as: ?? Increased pain, swelling, warmth, or redness. ?? Red streaks leading from the ulcer. ?? Pus draining from the ulcer. ?? A fever. ??Watch closely for changes in your health, and be sure to contact your doctor if: ? Your ulcer is not healing. ? You have new ulcers. ? The ulcer starts to bleed, and blood soaks through the bandage. Oozing small amounts of a mixof blood and fluid is normal. ? You have new bleeding. ? You do not get better as expected. Where can you learn more? Go to the Search Connect HQ option found under the Resources tab in [employer] [email or web address] If you do not have access to [employer], you can visit [email or web address]-care and select Linksy from the menu on the left. Enter R374 in the searchbox to learn more about Venous Skin Ulcer: Care Instructions. Not on [employer]? Go to [email or web address] and click the Sign Up Now linkto request an activation code. Current as of: October 04, 2017 Content Version: 11.8 ?? [id number] Connectloud. Care instructions adapted under license by your healthcare professional. This care instruction is for use with your licensed healthcare professional. If you have questions about a medical condition or this instruction, always ask your healthcare professional. [facility] disclaims any warranty or liability for your use of this information. documented in this encounter Progress Notes * Logan Jimenez NP - 09/01/2018 3:15 PM CDT Images from the original note were not included. [address] [address] Dept: [phone] Dept Loc: [phone] Loc Date: 09/01/2018 Name: Edilberto Hawley : 1955 PCP: Coco Leos PA-C Subjective: Patient ID: Edilberto Hawley is a 62 y.o. male. Chief Complaint Patient presents with ??? Leg Swelling RLE swelling. Onset 2 days ago. Patient presents to the clinic with complaints of right ankle and foot pain. He reports that his symptoms started over the summer; but has noticed that the area around his ankle wound has gotten muchworse over the last few days. Associated symptoms include erythema, edema, heat. No drainage or odor. He has pain with ambulation. He states that he has been putting a wet-to-dry dressing on the area as he was previously ordered to do. He is not using any other OTC medications for his symptoms. 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 He is here for counseling, urine drug screen, and signing of narcotic pain medication agreement. History provided by: Patient Patient's medications, allergies, past medical, surgical, social and family histories were reviewedand updated as appropriate. Review of Systems Constitutional: Negative. HENT: Negative. Eyes: Negative. Respiratory: Negative. Cardiovascular: Negative. Gastrointestinal: Negative. Endocrine: Negative. Genitourinary: Negative. Musculoskeletal: Positive for arthralgias and joint swelling. Skin: Positive for wound. Allergic/Immunologic: Negative. Neurological: Negative. Hematological: Negative. Psychiatric/Behavioral: Negative. Objective: Blood pressure 116/74, pulse 96, temperature 37 ??C (98.6 ??F), temperature source Tympanic, resp. rate 12, weight 84.9 kg (187 lb 3.2 oz), SpO2 98 %., BMI Body mass index is 26.12 [...] clear and moist. No oropharyngeal exudate. Eyes: Conjunctivae are normal. No scleral icterus. Neck: Neck supple. No thyromegaly present. Cardiovascular: Normal rate, regular rhythm and normal heart sounds. Exam reveals no gallop and no friction rub. No murmur heard. Pulmonary/Chest: Effort normal and breath sounds normal. No respiratory distress. Musculoskeletal: Right ankle: He exhibits swelling. Tenderness. Lateral malleolus tenderness found. Feet: Neurological: He is alert and oriented to person, place, and time. Skin: Skin is warm and dry. Capillary refill takes less than 2 seconds. Psychiatric: He has a normal mood and affect. His behavior is normal. Thought content normal. Nursing note and vitals reviewed. Assessment/Plan: Problem List Items Addressed This Visit Substance abuse ([facility]) Relevant Orders Urine Drug Screen Staphylococcal arthritis of right ankle ([facility]) - Primary Relevant Orders MRI Lower Extremity Joint wo Contrast Other Visit Diagnoses Cellulitis of right ankle Relevant Medications cephALEXin (KEFLEX) 500 MG capsule Other Relevant Orders MRI Lower Extremity Joint wo Contrast Narcotic drug use Relevant Orders Urine Drug Screen Encounter for narcotic contract discussion Keep your skin clean and dry. Be sure that you are changing your dressing twice a day. It is likelythat the granulation tissue started because of prolonged secondary wound healing techniques and infection. We will treat the infection and go from there. It is possible that we may refer you to woundclinic again. Next Visit: Return in about 2 weeks (around 09/15/2018) for with Dylan for wound care / evaluation after MRI. Encounter of: 09/01/2018 Signed: Logan Jimenez NP 09/01/2018 4:14 PM Patients PCP is: Dylan Jasso NP [address] [place] [id number] * Yael Berger LPN - 09/01/2018 3:15 PM CDT Wet to dry dressing applied RLE per provider. documented in this encounter Miscellaneous Notes * Addendum Note - Yael Berger LPN - 09/01/2018 3:15 PM CDTAddended by: YAEL BERGER on: 09/02/2018 01:55 PM Modules accepted: Orders documented in this encounter Plan of Treatment Not on file documented as of this encounter Goals Goal Patient Goal Type Associated Problems Recent Progress Patient-Stated? Author Blood Pressure < 140/90 Blood Pressure 134/86(2022 2:25 PM CDT) Leonard Montiel APRN documented as of this encounter Procedures Procedure Name Priority Date/Time Associated Diagnosis Comments URINE DRUG SCREEN Routine 09/08/2018 CONTROLLED SUBSTANCE AGREEMENT Routine 09/01/2018 documented in this encounter Results * Urine Drug Screen (09/08/2018) Urine specimen (specimen) Leonard Jasso APRN URINE ORDERABLES Veronica bettie Result [facility] [address] [place] [address] [place] [address] * MRI Lower Extremity Joint w wo [...] 09/07/2018 4:51 PM - Electronically signed by Klelie Ambrocio M.D. : D: ??09/07/2018 4:51 PM T: ??09/07/2018 4:51 PM Report ID: [id number] Reading Location: ??[id number] Narrative 09/07/2018 4:51 PM CDT [address] [place] [address] Patient Name:EDILBERTO HAWLEY ?Accession Number: [id number] Patient ID Number:[id number] ?Approval Date: 09/07/2018 4:51 PM Date of :1955 ? Imaging Date: 09/07/2018 Gender:M ?Referring Physician:LOGAN JIMENEZ Exam Description:MRI LOWER EXTREMITY JOINT W [...] Procedure Note Kellie Ambrocio MD - 09/07/[address] [place] [id number] Patient Name:EDILBERTO HAWLEY Accession Number: [id number] Patient ID Number:[id number] Approval Date: 09/07/2018 4:51 PM Date of :1955 Imaging Date: 09/07/2018 Gender:M Referring Physician:LOGAN JIMENEZ Exam Description:MRI LOWER EXTREMITY JOINT W [...] by Kellie Ambrocio M.D. : Report ID: [id number] Reading Location: [place] [address] Logan Jimenez POT MAKER IMG MRI ORDERABLES Final Resul t * (ABNORMAL) Urine Drug Screen (09/07/2018 9:00 AM CDT) Cannabinoids,UR NEG NEG [facility] Comment:(Cutoff is 50 ng/mL) Cocaine,UR NEG NEG [facility] [employer] [facility] Comment:(Cutoff is 150 ng/mL ) Opiates,UR POS(A) NEG [facility] [employer] [facility] Comment:(Cutoff is 100 ng/mL ) Amphetamines,UR NEG NEG [facility] [employer] [facility] Comment:(Cut off is 500 ng/m l) Phencyclidine,UR NEG NEG [facility] [employer] [facility] Comment:(Cutoff is 25 ng/mL) Tricyclics UR POS(A) NEG [facility] Comment:(Cut off is 300 ng/m L) Barbiturates,UR NEG NEG [facility] [employer] [facility] Comment:(Cutoff is 200 ng/mL ) Methadone Screen NEG NEG [facility] [employer] [facility] Comment:(Cutoff is 200 ng/mL ) Benzodiazepines,UR NEG NEG [facility] Comment:(Cutoff is 150 ng/mL ) Oxycodone Screen,UR POS(A) NEG [facility] Comment:(Cutoff is 100 ng/mL ) Propoxyphene,UR NEG NEG [facility] Comment:(Cut off is 300 ng/m L) Buprenorphine UR NEG NEG [facility] Comment:(Cutoff is 10 ng/mL) Methamphetamine NEG NEG [facility] Comment: (Cut off is 500 ng/ml) ---- URINE TOXICOLOGY RESULTS ARE UNCONFIRMED, QUALITATIVE RESULTS ??FOR MEDICAL PURPOSES ONLY. Urine specimen (specimen) 09/07/2018 9:00 AM CDT 09/07/2018 9:03 AM CDT us Logan Jimenez POT MAKER URINE ORDERABLES Final Result [facility] [address] [place] [address] * Controlled Substance Agreement (09/01/2018) DATE SIGNED [facility] 09/01/[address] [facility] - 09/14/2018 8:22 AM CDT See scanned results us Leonard Jasso GARAGE DOOR INSTALLER SUBSTANCE ABUSE ORDER RASHMI Final Result Performing Organization Address City/[facility]/ZIP Co de Phone Number [facility] [address] [place] [address] documented in this encounter Visit Diagnoses Diagnosis Staphylococcal arthritis of right ankle- Primary Cellulitis of right ankle Substance abuse Other, mixed, or unspecified nondependent drug abuse, unspecified Narcotic drug use Encounter for narcotic contract discussion Staphylococcal arthritis of right ankle Cellulitis of right ankle documented in this encounter Care Teams Weapons Designer Relationship Specialty Start Date End Date Coco Leos PA-C [address] [place] [id number] PCP - General Physician Supervisor [employer] 10/25/17 11/24/18 Denny Dey DO [address] [place] [address] Referring Physician Orthopedic Surgery 06/28/18 9 Lacey Perdue MD [address] [phone] Referring Physician Infectious Diseases 06/28/18 documented as of this encounter
--- OUTSIDE RECORDS SUMMARY | 2024-11-23 00:32 | XMS_ITS | Encounter Summary ---
Author Organization [employer] Address [address] [place] [address] Care Team Providers Care Rewrite Editor Name Role Phone Patient, None Per Primary Care Provider Unavaila ble Encounter Details Date Type Department Care Team (Latest Contact Info) Description 08/10/2017 11:00 AM CDT - 08/10/2017 11:59 PM CDT Hospital Encounter [facility] [address] [place] [address] Enrrique Bragg, PT [address] [place] [address] Discharge Disposition: Home - Discharge to Home or Self Care Social History Tobacco Use Types Packs/Day Years Used Date Smoking Tobacco: Never Assessed Sex and Gender Information Value Date Recorded Sex Assigned at Not on file Legal Sex Male 10:58 AM CDT Gender Identity Not on file Sexual Orientation Not on file documented as of this encounter Nursing Notes * Enrrique Bragg, PT - 08/10/2017 12:39 PM CDT 08/10/17 1107 General OP therapy treatment number 2 NW Referring Provider Peyton Insurance/Authorization PN 12/25 Onset Date 04/16/17 Start of Care Date 08/06/17 Primary diagnosis neck pain, limited ROM and COYNE Physician Follow up dates 08/17/17 Subjective Patient Statement Pt reports he tried doing some the HEP over the weekend and it made him stiff and sore. States he has a L supraorbital COYNE today but didn't have a COYNE at all over the weekend. Patient Pain Currently in Pain Yes Pain Assessment Pain Score 7 Soft Tissue treatment Other soft tissue treatment STM/MFR B cervical and upper thoracic paraspinals, L UT; TPR L UT; subocc. release 3x45 Spinal Mobilization Treatment Segmental Mobilization grade II/III PA mobs L TP C2-4 Traction manual cervical traction x 30 Therapeutic exercise Supine chin tuck x10x5 , c/o 'tension where my neck meets my head'; self-subocc release with towel roll x 3 min Sitting UT stretch 2x20 B; levator scap stretch 2x20 B with overpressure Skilled Interventions Verbal instructions provided Pt may attempt subocc release with tight towel roll x 3-5 mins at home. Continue all previous HEP. Other skilled interventions HEP (2x/day): supine chin tucks 2x10x5 ; UT stretch 3x30 B; levator scap stretch 3x30 B Assessment/Plan Clinical Impression Pt reports improvement in COYNE following manual therapy. Able to demo HEP with minimal cues. Planned treatment intervention/HEP Consider scap add or gentle tband rows. Manual/modalities PRN. Patient Response to Intervention Good Safety Concerns L CAROLANN, hx B RTC repair, current L RTC tear documented in this encounter Plan of Treatment Not on file documented as of this encounter Visit Diagnoses Not on filedocumented in this encounter Care Teams Rewrite Editor Relationship Specialty Start Date End Date Patient, None Per PCP - General 08/04/17 10/24/17 documented as of this encounter
--- OUTSIDE RECORDS SUMMARY | 2024-11-23 00:32 | XMS_ITS | Encounter Summary ---
Author Organization [employer] Address [address] [place] [address] Care Team Providers Care Acid Polymerization Operator Name Role Phone Kiley Todd MD Primary Care Provider [phone]- [phone] Encounter Details Date Type Department Care Team (Latest Contact Info) Description 06/16/2017 1:56 PM CDT - 06/16/2017 11:59 PM CDT Hospital Encounter [facility] [address] [place] [phone] Enrrique Bragg, PT [address] [place] [address] Discharge Disposition: Home - Discharge to Home or Self Care Social History Tobacco Use Types Packs/Day Years Used Date Smoking Tobacco: Never Assessed Sex and Gender Information Value Date Recorded Sex Assigned at Not on file Legal Sex Male 10:58 AM CDT Gender Identity Not on file Sexual Orientation Not on file documented as of this encounter Progress Notes * Enrrique Bragg, PT - 06/17/2017 10:[address] [facility] Initial Evaluation Patient Name: Edilberto Hawley Age: 61 y.o. : 1955 Referring Provider: Kiley Todd MD [address] [place] [address] 06/16/17 1434 General OP therapy treatment number 1 NW Pertinent Medical History OA, L CAROLANN approx 2 years ago, L elbow ORIF, R wrist ORIF, B RC repairs Referring Provider [employer] - [employer] Insurance/Authorization PN 11/24 2 patient identifiers Yes Onset Date 04/16/17 Start of Care Date 06/16/17 Primary diagnosis LBP with radiation and R TP fractures L1-3 Therapy treatment diagnosis Impaired pain, ROM, strength, functional mobility associated with lumbar strain and R transverse process fractures L1-3 Physician Follow up dates 06/21/17 Recent diagnostic testing lumbar xray and CT- (+) for R transverse process fractures L1-3. According to notes from [facility], pt also has stable L3 compression fracture that they are following Mechanism of Injury/Condition Fall at work Prior and Current level of function status Prior: Pt lives in [place] with his . He has been living in [facility] in [place], [place] x 18 months while working here. (I) with daily activities. 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 Currently: Light duty at work. Painful to sit for long periods to watch training videos at work. Painful turni ng in bed at night. 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 He reports he went to ED at [facility], however chart review confirms he in fact was seen at [facility]. Was given a brace to wear. Following ortho at [facility] for further management. He reports being instructed by ortho that he may discontinue brace, but he wears it occasionally to control pain. Pain is around 'belt line' bilaterally and c/o burning painto B buttocks. Occasionally gets burning pain that radiates to anterior L thigh and medial L knee. He has also been seen 3 visits at [facility] rehab at [facility] for imbalance and dizziness. Pt reports he stopped going and 'isn't sure if he is supposed to go back or not.' Reports hx LBP prior to fall he would rate 4-5/10. Aggravating factors include bending forward, twisting/turning, transfers, prolonged sitting and standing, lifting. Relieving factors include rest, medications, ice, heat helps more than ice. Denies relief with topical lidocaine cream. Pt's goal is to lower pain and get back to normal. Functional Outcome Measurement lumbar care connections Patient Pain Currently in Pain Yes Adult patient- Able to self-report pain Yes Pain Assessment (0-10, FACES, Verbal Descriptive) 0-10 (Numeric Rating Scale) Tolerable Pain Goal 4 Pain Assessment Pain Score 7 Pain Location Back Pain Orientation Right;Left;Lower Pain Radiating Towards B buttocks; L thigh Pain Descriptors Burning;Constant Pain Frequency Continuous Clinical Progression Not changed Pain Details Pain at its best 6 Pain at its worst 9 Gait Gait Stooped gait with mildly antalgic pattern. Pt occasionally grabs for LBP due to c/o pain Strength Lower Extremity R Hip Flexion 3+/5 R Hip Extension 3+/5 R Hip ABduction 4-/5 R Hip ADduction 4/5 L Hip Flexion 3+/5 L Hip Extension 3+/5 L Hip ABduction 4-/5 (c/o pain L groin) L Hip ADduction 4/5 Lumbar Spine ROM Lumbar Flexion 0-70 57 cm fingertips to floor, severe LBP Lumbar Extension 0-45 8 deg, severe R LBP Right Lumbar Lateral 0-45 50% limited, severe R LBP Left Lumbar Lateral 0-45 25% limited Right Lumbar Rotation 0-90 75% limited, severe R LBP Left Lumbar Rotation 0-90 25% limited Manual/Palpation Localized tenderness #1 diffusely tender to entire low back Other L LE slightly shortened in supine; R iliac crest appears superior, R ASIS superior Special Tests Lumbar - special tests SLR R/L SLR R/L Negative right;Negative left Spinal Mobilization Treatment Traction gentle R LE traction x 2 mins, no pulls, no change in leg length discrepancy Therapeutic exercise Mat exercises Supine Supine LTR x20, c/o LBP 9/10, discontinued; passive knee to chest stretch x20 B, c/o LBP 9/10; TrAisom 2x10x5 , frequent VCs for breathing; glute sets x10x5 ; hip add luly x10x5 Modalities Modalities used Electrical Stimulation - IFC;Thermal Agents Electrical Stimulation IFC - Settings 80-150 Hz Electrical Stimulation IFC - Time/Duration 10' Electrical Stimulation IFC - Electrode Placement B lumbar paraspinals Electrical Stimulation IFC - Intensity 19 mA Thermal Agents Ice Pack Thermal Agents Location lumbar Thermal Agents Time 10' with IFC Skilled Interventions Verbal instructions provided Educated pt on eval findings, anatomy, POC, HEP. Discussed isometrics in either supine, sitting or standing pending pt comfort. Ice PRN for pain control. Other skilled interventions HEP: TrA luly 2x10x5 ; glute sets 2x10x5 ; hip add luly 2x10x5 ; all 2-3x/day Treatment provided this session Treatment provided this session Eval, ther ex, IFC, ice pack, pt education, HEP Assessment/Plan Clinical Impression Pt is a 61 y.o. male presenting with LBP associated with lumbar strain and R transverse process fractures L1-3. He is also being followed regarding L3 compression fracture per [facility] notes. Pt would benefit from additional PT to return to daily activities as pain-free as possible. Planned treatment intervention/HEP Treatment will consist of ther ex, manual, neuro re-ed and modalities as indicated. Reattempt gentle mobilization/stretching as pt tolerates such as LTR. TrA activation progression as able. Pt may benefit from nerve glides based on L LE radicular symptoms. Patient Response to Intervention Fair Impairment/Problem List Impaired pain, ROM, strength, functional mobility. Clinical presentation isevolving based on severity of symptoms and radicular symptoms in L LE. Frequency/Duration 2x/week x 8 weeks Activity/Participation Limitations no lifting/carrying >10 lbs, no ladder climbing per work wellreport Safety Concerns L CAROLANN approx 2 years ago, L elbow ORIF, R wrist ORIF, B RC repairs Skill of a therapist is required Yes Potential for Practical Improvement Fair Short Term Goals To be met in: 8 wks Goal 1 Pt will be (I) and compliant with HEP. Goal 2 Pt will complete ADLs without increase in LBP. Goal 3 Pt will deny L LE radicular symptoms. Goal 4 Pt will improve lumbar flexion AROM to <40 cm fingertips to floor to improve efficiency with ADL completion. Goal 5 Pt will complete all daily activities and report LBP no greater than 4/10. Thank you for this referral. Please contact [facility] with any questions or concerns. Enrrique Bragg, PT, DPT 06/17/2017 10:[address] [facility] [address] [place] [address] documented in this encounter Plan of Treatment Not on file documented as of this encounter Visit Diagnoses Not on filedocumented in this encounter Care Teams Acid Polymerization Operator Relationship Specialty Start Date End Date Kiley Todd MD [address] [facility] [place] [address] PCP - General Occupational Medicine 05/19/17 08/03/17 documented as of this encounter
--- OUTSIDE RECORDS SUMMARY | 2024-11-23 00:32 | XMS_ITS | Encounter Summary ---
Author Organization [employer] Address [address] [place] [address] Care Team Providers Care Cvir Tech Name Role Phone Kiley Todd MD Primary Care Provider [phone]- [phone] Encounter Details Date Type Department Care Team (Latest Contact Info) Description 07/13/2017 9:44 AM CDT - 07/13/2017 11:59 PM CDT Hospital Encounter [facility] [address] [place] [phone] Enrrique Bragg, PT [address] [place] [address] Discharge Disposition: Home - Discharge [...] Nursing Notes * Enrrique Bragg, PT - 07/14/2017 11:55 AM CDT 07/13/17 1006 General OP therapy treatment number 9 NW Referring Provider Peyton Insurance/Authorization PN 03/24 Onset Date 04/16/17 Start of Care Date 06/16/17 Primary diagnosis LBP with radiation and R TP fractures L1-3 Subjective Patient Statement Pt reports weekend was terrible, LBP was 8-9/10 and had a hard time getting up and around. Spent a lot of time laying on couch. Reports he went to work well yesterday and'they told me I have a concussion. My brain is bruised.' He also states he hasn't gone back over to[facility] rehab for OP neuro post-concussion PT. My balance is bad, I fell twice last weekend and my headaches are terrible everyday. Patient Pain Currently in Pain Yes Pain Assessment Pain Score 6 AROM / PROM / Strength AROM / PROM / Strength (all muscle testing limited by c/o back pain) Strength Lower Extremity R Hip Flexion 4/5 R Hip Extension 3+/5 R Hip ABduction 4-/5 R Hip ADduction 4+/5 L Hip Flexion 4/5 L Hip Extension 3+/5 L Hip ABduction 4-/5 L Hip ADduction 4+/5 Lumbar Spine ROM Lumbar Flexion 0-70 52 cm fingertips to floor, central LBP L5/S1 Lumbar Extension 0-45 6 deg, c/o severe R LBP Right Lumbar Lateral 0-45 50% limted, severe R LBP Left Lumbar Lateral 0-45 25% limited, LBP Right Lumbar Rotation 0-90 50% limited, severe R LBP Left Lumbar Rotation 0-90 25% limited, LBP Therapeutic exercise Nu-Step WL 5 x 5 mins, seat 9, UE/LEs to promote lumbar rotation Mat exercises Sidelying Right;Sidelying Left Supine LTR x10x5 Sidelying right clamshells x15x5 ; hip abd SLR x 10x5 , fatigues quickly Sidelying left clamshells x15x5 ; hip abd SLR x 10x5 , fatigues quickly Modalities Electrical stimulation TENS Burst;2 leads Electrical stimulation TENS location B lumbar paraspinals Electrical stimulation TENS time 10 mins Skilled Interventions Verbal instructions provided Discussed TENS unit set-up and pt able to apply without cues appropriately. Did also recommend pt may use interferential vs. parallel lead application. Other skilled interventions HEP: glute sets 2x10x5 ; hip add luly 2x10x5 ; seated HS stretch/sciatic nerve glide 2 x 20 pumps; LTR x 10 hold 3 sec; bridging x 10 hold 3 sec; PPT with marching 2x10x5 ; all 2-3x/day Assessment/Plan Clinical Impression Pt able to demo TENS set-up and contraindications/precautions without cues today, which is excellent considering pt's report of intermittent short-term memory loss due to post-concussion syndrome. Excercise tolerance and ROM and strength continues to be limited by moderate-severe LBP. Planned treatment intervention/HEP Consider total gym next visit. May revisit standing hip abd/ext per pain response. Patient Response to Intervention Fair Safety Concerns L CAROLANN approx 2 years ago, L elbow ORIF, R wrist ORIF, B RC repairs documented in this encounter Plan of Treatment Not on file documented as of this encounter Visit Diagnoses Not on filedocumented in this encounter Care Teams Cvir Tech Relationship Specialty Start Date End Date Kiley Todd MD [address] [place] [address] PCP - General Occupational Medicine 05/19/17 08/03/17 documented as of this encounter
--- OUTSIDE RECORDS SUMMARY | 2024-11-23 00:32 | XMS_ITS | Encounter Summary ---
Author Organization [employer] Address [address] [place] [address] Care Team Providers Care Shelter Advocate Name Role Phone Patient, None Per Primary Care Provider Unavaila ble Encounter Details Date Type Department Care Team (Latest Contact Info) Description 08/09/2017 11:36 AM CDT - 08/09/2017 11:59 PM CDT Hospital Encounter [facility] [address] [place] [address] dEen Anthony, RAILROAD WATCHMAN [address] [place], [place] [id number] Discharge Disposition: Home - Discharge to Home or Self Care Social History Tobacco Use Types Packs/Day Years Used Date Smoking Tobacco: Never Assessed Sex and Gender Information Value Date Recorded Sex Assigned at Not on file Legal Sex Male 10:58 AM CDT Gender Identity Not on file Sexual Orientation Not on file documented as of this encounter Nursing Notes * Eden Anthony, RAILROAD WATCHMAN - 08/09/2017 2:07 PM CDT 08/09/17 1205 General OP therapy treatment number 7/JJ AY Reported Falls yes HEP compliant Subjective Patient Statement States fell over the weekend missed a step adn loss his balance. Maybethat is why I'm so sore today. Patient Pain Currently in Pain Yes Pain Assessment Pain Score 6 Pain Location Back;Neck Transfer/Mobility Training Sit to Stand Independent Stand to Sit Independent Gait Gait Assistance Supervision/Setup Assistive Device None Gait Pattern Reciprocal Complex/Challenged Gait Gt with horizontal and vertical head turns, forward/backwards gait, and marching all SBA. Stepping over mini hurdles did provide up to LCA due to catching the alejandro with his foot. Balance Other Bolster rolling with right and left LE's while maintaining SLS LCA. Stood on black high density foam with feet apart and feet touching. Added arms crossed in front of chest with eyes open with head turns LCA. Stood on 1/2 foam roll with feet apart LCA. Therapeutic exercise Cardio exercises Recumbent Bike Recumbent Bike Recumbent bike x 10 minutes for B LE strengthening and ROM. Required assistance for proper set up. Assessment/Plan Clinical Impression Doing better today. Came into clinic still and sore but appeared to be moving better by the end of his PT session. Discuseed increasing his activity level at home. Did have a fallsince previous therapy session which could be contributing to his increased stiffness and soreness. Planned treatment intervention/HEP Challenge gait and balance. Strengthening. Patient Response to Intervention Good Frequency/Duration 2x per wk Safety Concerns fall risk Skill of a therapist is required Yes Supervising Therapist Verónica Dominguez PT Eden Anthony PTA documented in this encounter Plan of Treatment Not on file documented as of this encounter Visit Diagnoses Not on filedocumented in this encounter Care Teams Shelter Advocate Relationship Specialty Start Date End Date Patient, None Per PCP - General 08/04/17 10/24/17 documented as of this encounter
--- OUTSIDE RECORDS SUMMARY | 2024-11-23 00:32 | XMS_ITS | Encounter Summary ---
Author Organization [employer] Address [address] [place] [address] Care Team Providers Care Solar Sales Consultant Name Role Phone Patient, None Per Primary Care Provider Unavaila ble Encounter Details Date Type Department Care Team (Latest Contact Info) Description 08/17/2017 10:58 AM CDT - 08/17/2017 11:59 PM CDT Hospital Encounter [facility] [address] [place] [address] Eden Anthony, CUSHION FORMER [address] [place], [place] [phone] Discharge Disposition: Home - Discharge to Home or Self Care Social History Tobacco Use Types Packs/Day Years Used Date Smoking Tobacco: Never Assessed Sex and Gender Information Value Date Recorded Sex Assigned at Not on file Legal Sex Male 10:58 AM CDT Gender Identity Not on file Sexual Orientation Not on file documented as of this encounter Nursing Notes * Eden Anthony CUSHION FORMER - 08/17/2017 3:09 PM CDT 08/17/17 1119 General OP therapy treatment number 9/JJ Reported Falls yes Subjective Patient Statement States fells out of bed. States don't know how it happened. Patient Pain Currently in Pain Yes Pain Assessment Pain Score 6 ( to 6.5) Pain Location (lower back, left leg, and ft shoulder pain.) Vital Signs Heart Rate 76 Blood Pressure 117/74 Transfer/Mobility Training Sit to Stand Independent Stand to Sit Independent Gait Gait Assistance Supervision/Setup Assistive Device None Gait Pattern Reciprocal Complex/Challenged Gait Stepping over mini hurdles, 4 , and 8 blocks with LCA. Stepping stone airex pads forward stepping and side steppin left/right all with LCA to min assistance for LOB. Balance Other Tapping cones while standing on single leg LCA to min assistance. Stood on 1/2 foam roll withmin assistance for LOB. Stood on rocker board, black high density foam, and half foam roller. Provided pt LCA to min assistance. Therapeutic exercise Nu-Step NS WL6 x 10 minutes for B UE and LE strengthening and ROM. Assessment/Plan Clinical Impression Edilberto continues to have falls at home. Appeared to have increased left leg pain today throughout PT session. Planned treatment intervention/HEP Continue to challenge gait and balance. Frequency/Duration up to 2 times per wk Safety Concerns fall risk Skill of a therapist is required Yes Supervising Therapist Verónica Dominguez PT Eden Anthony PTA documented in this encounter Plan of Treatment Not on file documented as of this encounter Visit Diagnoses Not on filedocumented in this encounter Care Teams Solar Sales Consultant Relationship Specialty Start Date End Date Patient, None Per PCP - General 08/04/17 10/24/17 documented as of this encounter
--- OUTSIDE RECORDS SUMMARY | 2024-11-23 00:32 | XMS_ITS | Encounter Summary ---
Author Organization [employer] Address [address] [place] [address] Care Team Providers Care Webfed Offset Press Operator Name Role Phone Patient, None Per Primary Care Provider Unavaila ble Encounter Details Date Type Department Care Team (Latest Contact Info) Description 08/06/2017 10:40 AM CDT - 08/06/2017 11:59 PM CDT Hospital Encounter [facility] [address] [place] [address] Enrrique Bragg, PT [address] [place], [place] [id number] Discharge Disposition: Home - Discharge to Home [...] Progress Notes * Enrrique Bragg, PT - 08/06/2017 1:[address] [facility] Initial Evaluation Patient Name: Edilberto Hawley Age: 61 y.o. : 1955 Referring Provider: Kiley Todd MD [address] [place] [address] 08/06/17 1102 General OP therapy treatment number 1 NW Pertinent Medical History OA, L CAROLANN approx 2 years ago, L elbow ORIF, R wrist ORIF, B RC repairs Referring Provider [employer] WC- [employer] Insurance/Authorization PN 11/24 2 patient identifiers Yes Onset Date 04/16/17 Start of Care Date 08/06/17 Primary diagnosis neck pain, limited ROM and COYNE Therapy treatment diagnosis Impaired pain, ROM, functional activities associated with cervical strain and cervicogenic COYNE Physician Follow up dates 08/17/17 (1000) Recent diagnostic testing imaging at [facility] after fall was (-) for fracture per pt report Mechanism of Injury/Condition Fall at work Prior and Current level of function status Prior: Pt lives in [place] with his . He currently lives in [place], [place] while working here which is approx a [address] (I) with daily activities. 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 Currently: Off work. Avoiding screen time due to neck pain and c/o COYNE and post-concussion symptoms. Painful sitting and driving for long periods. Subjective Patient Statement Pt well known to me, had several PT visits from [facility] following fall at work 04/16/17. He continues HEP for LBP (I) and TENS unit (I) for pain management. C/o worsening neck pain in past several weeks, mostly R sided. Pt reports 'pressure' COYNE 3-4x/week, B temporal. Also c/ointermittent 'tingling' in entire UEs in the morning, L>R. Aggravating factors include turning head to R, lifting, driving. Relieving factors include repositioning, stretching, heat, ice, medications, topical creams. Pt's goal is to decrease neck pain. Functional Outcome Measurement cervical care connections Patient Pain Currently in Pain Yes Adult patient- Able to self-report pain Yes Pain Assessment (0-10, FACES, Verbal Descriptive) 0-10 (Numeric Rating Scale) Pain Assessment Pain Score 6 Pain Location Neck Pain Orientation Right Pain Radiating Towards R mastoid Pain Descriptors Aching;Dull;Throbbing Pain Frequency Continuous Pain Details Pain at its best 5 Pain at its worst 9 Posture Posture Forward head AROM / PROM / Strength AROM / PROM / Strength (deferred SH ROM/strength due to current L RTC tear) Cervical Spine ROM Cervical Flexion 0-70 2 cm chin to sternal notch, c/o sharp R neck pain Cervical Extension 0-45 18 cm chin to sternal notch, sharp R neck pain, not as severe as flexion Right Cervical Lateral 0-45 12 deg, sharp L neck pain Left Cervical Lateral 0-45 22 deg, pulling R neck Right Cervical Rotation 0-90 52 deg, sharp R neck pain Left Cervical Rotation 0-90 56 deg, pulling R neck Manual/Palpation Tissue quality hypertonicity R UT Localized tenderness #1 R UT Localized tenderness #2 R TP C2-4 Special Tests Cervical Spine - special tests done Spurling's Test;Quadrant Test;Distraction Test Distraction Test no change in cervical symptoms, no c/o UE parasthesias Spurling's Test Negative right;Negative left Quadrant Test Positive right;Positive left Comment no reproduction of UE parasthesias with cervical special testing Soft Tissue treatment Other soft tissue treatment STM/MFR B cervical and upper thoracic paraspinals, R UT; TPR R UT; subocc. release 3x45 Spinal Mobilization Treatment Segmental Mobilization grade I/II PA mobs R TP C2-5, significant pain; grade I/II PA mobs C7-T3 Traction manual cervical traction 2x30 Therapeutic exercise Mat exercises Sitting;Supine Supine chin tucks 2x10x5 , VCs for performance and hold time Sitting UT stretch 3x20 B, VCs for positioning and to avoid painful range; levator scap stretch 3x20 B, c/o pulling into thoracic spine, again VCs to limit to tolerable stretch and avoid painful range Modalities Modalities used (pt declines ice pack, 'too busy' today, will ice later PRN) Skilled Interventions Verbal instructions provided Educated pt on eval findings, anatomy, POC, HEP. Encouraged ice x 10-20 mins for post-treatment soreness and pain control. Other skilled interventions HEP (2x/day): supine chin tucks 2x10x5 ; UT stretch 3x30 B; levator scap stretch 3x30 B Treatment provided this session Treatment provided this session Eval, ther ex, manual, pt education, HEP. Assessment/Plan Clinical Impression Pt is a 61 y.o. male presenting with neck pain and COYNE most consistent with cervical strain and cervicogenic COYNE. He would benefit from additional PT to return to daily and work activities as pain-free as possible. Planned treatment intervention/HEP Treatment will consist of ther ex, manual, neuro re-ed and modalities as indicated. Consider scap add or gentle tband rows in future sessions. Vertebral artery testing prior to MET of c-spine or more aggressive joint mobs. Patient Response to Intervention Good Impairment/Problem List Impaired pain, ROM, functional activities. Clinical presentation is evolving based on pt's c/o intermittent UE parasthesias and frequent HAs. Frequency/Duration 2x/week x 6 weeks Safety Concerns L CAROLANN, hx B RTC repair, current L RTC tear Skill of a therapist is required Yes Potential for Practical Improvement Fair Short Term Goals To be met in: 6 wks Goal 1 Pt will be (I) and compliant with HEP. Goal 2 Pt will improve B cervical rotation AROM to 65 deg or greater to improve safety with driving. Goal 3 Pt will report COYNE frequency no greater than 1x/week. Goal 4 Pt will complete all daily activities and c/o neck pain no greater than 2/10. Thank you for this referral. Please contact [facility] with any questions or concerns. Enrrique Bragg, PT, DPT 08/06/2017 1:58 PM [facility] [address] [place] [address] documented in this encounter Plan of Treatment Not on file documented as of this encounter Visit Diagnoses Not on filedocumented in this encounter Care Teams Webfed Offset Press Operator Relationship Specialty Start Date End Date Patient, None Per PCP - General 08/04/17 10/24/17 documented as of this encounter
--- OUTSIDE RECORDS SUMMARY | 2024-11-23 00:32 | XMS_ITS | Encounter Summary ---
Author Organization [employer] Address [address] [place] [address] Care Team Providers Care Monitoring Analyst Name Role Phone Kiley Todd MD Primary Care Provider [phone]- [phone] Encounter Details Date Type Department Care Team (Latest Contact Info) Description 05/25/2017 1:57 PM CDT - 05/25/2017 11:59 PM CDT Hospital Encounter [facility] [address] [place], [place] [phone] Verónica Dominguez, PT [address] [place], [place] [phone] Discharge Disposition: Home - Discharge to Home or Self Care Social History Tobacco Use Types Packs/Day Years Used Date Smoking Tobacco: Never Assessed Sex and Gender Information Value Date Recorded Sex Assigned at Not on file Legal Sex Male 10:58 AM CDT Gender Identity Not on file Sexual Orientation Not on file documented as of this encounter Progress Notes * Verónica Dominguez, PT - 05/25/2017 3:59 PM CDT [facility] [address] PHYSICAL THERAPY PLAN OF CARE Patient Name: Edilberto Hawley : 1955 Patient has no past medical history on file. Referring Provider: Kiley Todd MD 05/25/17 1432 General OP therapy treatment number [address] Todd Insurance WC 2 patient identifiers Yes Onset Date 04/16/17 Start of Care Date 05/25/17 Primary diagnosis Dizziness, Imbalance Therapy treatment diagnosis Post Concussion Syndrome Prior and Current level of function status Pt works for [employer]. Indpendent with gait and driving and ADLs. Work Injury History Fell off heavy equipment and hit head, lumbar transverse process fractures Subjective Patient Statement Balance has been off and has been having some falls. Wasn't having these problems before. Cant walk heel to toe or stand on one foot. Sometimes feels off balance for a few seconds or sometimes 10-15 seconds. [facility] here today. Has fallen about 10 times in the last week. It feels like being drunk in an earthquake . Had an episode last week, was laying flat and it came on, hadnt moved his head at all. Was worried hewas having mini strokes. Under a lot of stress lately so thats why he thought. Thinks the last passing out was from severe severe back pain as well as alot of stress. Goal is to get back to normal. Vestibular Evaluation Sickness/Trauma prior to onset Yes Sickness/Trauma Fell of a piece of equipment at work on 03/16/17 Symptom Details dizzy and off balance History of Falls Fall within last six months (10 falls in the last week) Driving Status Yes Start of Symptoms 04/16/17 fell and hit head while at work Patient Perception of Symptoms Both Time Symptoms are Experienced (can happen anytime, no specific factors) Patient Description of Symptoms motion sensitivity;spin sensations;ear/head noises (tinnitus);unsteadiness;rocking sensations Frequency of Symptoms spell or attack Symptom Duration seconds How do Symptoms Affect Quality of Life severely What Quality of Life areas are affected? Work;ADL;Hobby;Driving Work Status No, due to dizziness/imbalance Visual Impairment Glasses DHI score 50 ABC scale 63 Patient Pain Currently in Pain Yes Adult patient- Able to self-report pain Yes Pain Assessment (0-10, FACES, Verbal Descriptive) 0-10 (Numeric Rating Scale) Pain Assessment Pain Score 7 Pain Location Back (low, and center) Vital Signs Blood Pressure 122/80 General extremity assessment Cervical ROM X (pain with rotation and extension) Posture Posture Forward head;Rounded shoulders Ocular Motor Exam - room light Spontaneous Nystagmus negative Smooth pursuit negative Gaze holding negative Slow VOR negative VOR Cancellation negative Head thrust right negative Head thrust left negative Ocular Motor exam Frenvel/IR spontaneous nystagmus;graze evoked nystagmus Spontaneous Nystagmus negative Gaze evoked negative Static Balance Tests/Training Static Balance Single Leg Stance Right;Single Leg Stance Left Single Leg Stance Right (sec) (<5 ) Single Leg Stance Left (sec) (<5 ) Dynamic Balance Tests/Training Dynamic Balance Tandem walk forward;Dynamic Gait Index;Gait speed Tandem walk forward 5 steps Dynamic Gait Index Gait Speed CGS: 1.01 m/s Gait Gait Assistance Independent Complex/Challenged Gait gait with head turns and tips, changes in speed, stepping around and over obstacles with SBA Positional testing Felipe Rawlins [place] right no nystagmus or vertigo Felipe Rawlins [place] left no nystagmus or vertigo Horizontal canal roll test right no nystagmus or vertigo Horizontal canal roll test left no nystagmus or vertigo Other positional testing with return to sitting did c/o of feeling like he was moving and was infact swaying in seated position, but no nystagmus Assessment/Plan Clinical Impression Pt presents with c/ odizziness, imbalance and tinnitus following fall at work with head laceration and back injury. Occulomotor exam intact and no evidence of BPPV wit positional testing today. Static balance significantly impaired based on mCTSIB though DGI is above cut off forfalls; of note pt is having multiple falls at this time. Cannot rule out post concussion syndrome. Will benefit from skilled intervention to address impaired gait, balance and dizziness in order to maximize return to prior level of function. Planned treatment intervention/HEP [place] scale, 4 SST, SOT, adaptation test, [place], static and dynamic balance Patient Response to Intervention Good Impairment/Problem List impaired gait and balance, dizziness Frequency/Duration 2x/week x 2-4 weeks Safety Concerns fall risk Skill of a therapist is required Yes Potential for Practical Improvement Good Short Term Goals Goal 1 Client to demonstrate improved balance with a score greater than 48/56 on the [place] Balance Assessment, indicating low risk for falls. Goal 2 Client to demonstrate ability to step over objects in all directions by scoring less than 14seconds on the Four Square Step Test, indicating low risk for falls. Goal 3 Client to demonstrate safe floor to stand transfers, to show ability to recover safely from a fall. Goal 4 Client to demonstrate improved static balance with normal sway velocity for patient's age range on all categories except foam eyes closed on the Modified CTSIB. Goal 5 Client able to return to functional activities without reports of dizziness. Modified CTSIB Evaluates the ability of an individual to remain stable and control their center of gravity (COG) position under different surface and visual (environmental) conditions. The following performance attributes were in abnormal range: (1) Stability with eyes open on a firm surface. 89%below norm score (2) Stability with eyes closed on a firm surface. 144% below norm score (3) Stability with eyes open on a unstable (foam) surface. 252% below norm score (4) Stability with eyes closed on an unstable (foam) surface. 104% below norm score (5) Comp score 152% below aged matched norms. (6) COG Alignment scattered 26% LOS (limits of stability) Patient???s treatments may consist of patient/caregiver education, functional training, range of motion, strengthening, balance activities, modalities, aquatic therapy, canal repositioning, and/or habituation/adaptation exercises. Personal Factors/Co-morbidities that impact PT evaluation Coping style Social background Overall behavior pattern Examination of body systems that impact PT evaluation 1. Body Structure and Functions Mental - reports high stress Sensory including pain - back fractures, neck pain Neuromuscular Musculoskeletal and movement related 2. Activities and Participation General tasks and demands Mobility Major life areas Community, social, and civic life Clinical Decision Making for Evaluation Code Complexity: High: 3 or more personal factors, 4 or more body system elements, unstable presentation and/or highclinical decision making Verónica Dominguez, MAURICIO 05/25/2017 3:59 [place] [address] Ph. [phone] Fax. [phone] I CERTIFY THE NEED FOR THESE SERVICES FURNISHED UNDER THIS PLAN OF TREATMENT AND WHILE UNDER MY CARE. Provider Signature Date of Signature On file (Print/Type provider's name): Kiley Todd MD documented in this encounter Plan of Treatment Not on file documented as of this encounter Visit Diagnoses Not on filedocumented in this encounter Care Teams Monitoring Analyst Relationship Specialty Start Date End Date Kiley Todd MD [address] [place] [address] PCP - General Occupational Medicine 05/19/17 08/03/17 documented as of this encounter
--- OUTSIDE RECORDS SUMMARY | 2024-11-23 00:32 | XMS_ITS | Encounter Summary ---
Author Organization [employer] Address [address] [place] [address] Care Team Providers Care District Sales Coordinator Name Role Phone Kiley Todd MD Primary Care Provider [phone]- [phone] Encounter Details Date Type Department Care Team (Latest Contact Info) Description 07/05/2017 1:35 PM CDT - 07/05/2017 11:59 PM CDT Hospital Encounter [facility] [address] [place] [phone] Enrrique Bragg, PT [address] [place] [address] Discharge Disposition: Home - Discharge [...] Nursing Notes * Enrrique Bragg, PT - 07/05/2017 2:29 PM CDT 07/05/17 1354 General OP therapy treatment number 7 NW Referring Provider Peyton Insurance/Authorization PN 01/22 Onset Date 04/16/17 Start of Care Date 06/16/17 Primary diagnosis 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 Drove 2 hours to [place] but doesn't think that played much of a role. I think a lot of it has been the weather, it's bothering my arthritis. Patient Pain Currently in Pain Yes Pain Assessment Pain Score 7 Therapeutic exercise Nu-Step WL 5 x 5 mins, seat 10, UE/LEs to promote lumbar rotation Supine sciatic nn glides with manual set-up in 90/9o position and active ankle pumps 2x20 pumps; PPT with marching 2x10; PPT with heelslides 2x10, frequent VC/MCs for PPT prior to heelslide, difficult to sequence without MCs, c/o significant L LBP; bridging x 8, c/o L LBP 'at belt line', discontinued Modalities Electrical Stimulation IFC - Settings 80-150 Hz Electrical Stimulation IFC - Time/Duration 10' Electrical Stimulation IFC - Electrode Placement B lumbar paraspinals Electrical Stimulation IFC - Intensity 25 mA Thermal Agents Ice Pack Thermal Agents Location lumbar Thermal Agents Time 10' with IFC Skilled Interventions Verbal instructions provided Encouraged pt to take frequent, short walks to prevent stiffness and pain when he does attempt to change positions. Verbally reviewed log roll for bed mobility. Other skilled interventions HEP: glute sets 2x10x5 ; hip add luly 2x10x5 ; seated HS stretch/sciatic nerve glide 2 x 20 pumps; LTR x 10 hold 3 sec; bridging x 10 hold 3 sec; PPT with marching 2x10x5 ; all 2-3x/day Assessment/Plan Clinical Impression Limited tolerance to core stabilization activities today. Minimal relief with IFC/ice today. Planned treatment intervention/HEP Consider hip abd SLR or total gym as pain allows. May consider RDL progression in future sessions. Manual/modalities PRN. TENS training as pt brings in his own unitafter it arrives. Finalize HEP in next 1-2 weeks. Patient Response to Intervention Fair Safety Concerns L CAROLANN approx 2 years ago, L elbow ORIF, R wrist ORIF, B RC repairs documented in this encounter Plan of Treatment Not on file documented as of this encounter Visit Diagnoses Not on filedocumented in this encounter Care Teams District Sales Coordinator Relationship Specialty Start Date End Date Kiley Todd MD [address] [place] [address] PCP - General Occupational Medicine 05/19/17 08/03/17 documented as of this encounter
--- OUTSIDE RECORDS SUMMARY | 2024-11-23 00:32 | XMS_ITS | Encounter Summary ---
Author Organization [employer] Address [address] [place] [address] Care Team Providers Care Steel Rule Die Maker Name Role Phone Kiley Todd MD Primary Care Provider [phone]- [phone] Encounter Details Date Type Department Care Team (Latest Contact Info) Description 06/30/2017 12:30 PM CDT - 06/30/2017 2:05 PM CDT Hospital Encounter [facility] [address] [place] [address] Enrrique Bragg, PT [address] [place], [place] [phone] Discharge Disposition: Home - Discharge to Home [...] Progress Notes * Enrrique Bragg, PT - 06/30/2017 2:27 PM CDT PHYSICAL THERAPY PROGRESS NOTE Patient Name: Edilberto Hawley Age: 61 y.o. : 1955 Referring Provider: Kiley Todd MD [address] [place] [address] Treatment Dates: 5 visits from 06/16-06/30/17 Summary of Treatment: therapeutic exercise, manual therapy, modalities, pt education, HEP 06/30/17 1234 General OP therapy treatment number 5 NW Referring Provider P[employer] Insurance/Authorization PN 11/24 Onset Date 04/16/17 Start of Care Date 06/16/17 Primary diagnosis LBP with radiation and R TP fractures L1-3 Subjective Patient Statement Pt reports he has MRI of L SH today, has been having sharp pains there. C/o burning into mainly L buttock today. Back seems to be getting a little better. Pt shares same story today about taking OSHA 40 test as he did previous visit. I was taking a quiz before I came here and almost got a perfect score but it kicked me off and I failed and I got real mad about it. Patient Pain Currently in Pain Yes Pain Assessment Pain Score 6 Pain Location Back Pain Radiating Towards L buttock Strength Lower Extremity R Hip Flexion 3+/5 (c/o R groin pain) R Hip Extension 3+/5 R Hip ABduction 4-/5 Lumbar Spine ROM Lumbar Flexion 0-70 54 cm fingertips, c/o burning LBP Lumbar Extension 0-45 8 deg, c/o R LBP 6/10 Right Lumbar Lateral 0-45 50% limited, R LBP Left Lumbar Lateral 0-45 25% limited, LBP Right Lumbar Rotation 0-90 50% limited, R LBP Left Lumbar Rotation 0-90 50% limited, pain Therapeutic exercise Nu-Step WL 5 x 5 mins, seat 10, UE/LEs to promote lumbar rotation Mat exercises Standing Supine LTR x 20; bridging x 15, c/o slight worsening of LBP; PPT 2x10x5 , occasional VCs for breathing and to avoid lifting head/chest; PPT with marching 2x10, several VCs to maintain PPT and breathing Standing hip abd with slight ext x 12 B Skilled Interventions Verbal instructions provided Progress PPT with marching and gave printed update. Other skilled interventions Updated HEP: glute sets 2x10x5 ; hip add luly 2x10x5 ; seated HS stretch/sciatic nerve glide 2 x 20 pumps; LTR x 10 hold 3 sec; bridging x 10 hold 3 sec; PPT with [id number] ; all 2-3x/day Assessment/Plan Clinical Impression Pt with limited progress since initial visit, c/o LBP consistently 6-7/10. No significant improvement in lumbar AROM, limited by pain. Will continue to progress as pt tolerates. Planned treatment intervention/HEP Pt may bring TENS unit in from home when received for instruction. PPT progression in hooklying, progress standing hip exercises per pain tolerance. Patient Response to Intervention Fair Safety Concerns L CAROLANN approx 2 years ago, L elbow ORIF, R wrist ORIF, B RC repairs Goals Short Term Goals: To be met in:: 8 wks Goal 1: Pt will be (I) and compliant with HEP. Goal 1 progress: Progressing Goal 2: Pt will complete ADLs without increase in LBP. Goal 2 progress: Progressing Goal 3: Pt will deny L LE radicular symptoms. Goal 3 progress: Progressing Goal 4: Pt will improve lumbar flexion AROM to <40 cm fingertips to floor to improve efficiency with ADL completion. Goal 4 progress: Progressing Goal 5: Pt will complete all daily activities and report LBP no greater than 4/10. Goal 5 progress: Progressing Thank you for this referral. Please contact [facility] with any questions or concerns. Enrrique Bragg, PT, DPT 06/30/2017 2:27 PM . [facility] [address] [place] [address] documented in this encounter Plan of Treatment Not on file documented as of this encounter Visit Diagnoses Not on filedocumented in this encounter Care Teams Steel Rule Die Maker Relationship Specialty Start Date End Date Kiley Todd MD [address] [place] [facility] [place] [place] [id number] PCP - General Occupational Medicine 05/19/17 08/03/17 documented as of this encounter
--- OUTSIDE RECORDS SUMMARY | 2024-11-23 00:32 | XMS_ITS | Encounter Summary ---
Author Organization [employer] Address [address] [place] [address] Care Team Providers Care Debt Collection Specialist Name Role Phone Kiley Todd MD Primary Care Provider +1- [phone] Encounter Details Date Type Department Care Team (Latest Contact Info) Description 06/14/2017 3:30 PM CDT - 06/14/2017 11:59 PM CDT Hospital Encounter [facility] [address] [place], [place] [id number] Kiley Todd MD [address] [place], [place] [phone] Discharge Disposition: Home - Discharge to Home [...] Date/Time Associated Diagnosis Comments CREATININE, BLOOD Routine 06/14/2017 3:3 0 PM CDT documented in this encounter Results * Creatinine, Blood (06/14/2017 3:30 PM CDT) Creatinine 0.76 0.51 - 1.17 mg/dL [facility] Comment:The analysis was per formed using an isotope dilution mass spectrometry (IDMS) traceable methodology. Creatinine Based eGFR >60 >60 [facility] Comment: GFR REFERENCE RANGE: >60 mL/min/1.73m2 -- An eGFR of > than, or = to 60, may indicate normal renal function or mildly decreased GFR. EGFR /Kosovan >60 >60 [facility] Comment: -- An eGFR of > than, or = to 60, may indicate normal renal function or mildly decreased GFR. Test Performed at [facility], [address] [place]. 06/14/2017 3:30 PM CDT 06/14/2017 5:33 PM CDT us Kiley Todd MD LAB BLOOD ORDERABLES Final Result [facility] [address] [place] [phone] documented in this encounter Visit Diagnoses Not on filedocumented in this encounter Care Teams Debt Collection Specialist Relationship Specialty Start Date End Date Kiley Todd MD [address] [place] [address] PCP - General Occupational Medicine 05/19/17 08/03/17 documented as of this encounter
--- OUTSIDE RECORDS SUMMARY | 2024-11-23 00:32 | XMS_ITS | Encounter Summary ---
Author Organization [employer] Address [address] [place] [address] Care Team Providers Care Greeting Card Writer Name Role Phone Kiley Todd MD Primary Care Provider [phone]- [phone] Encounter Details Date Type Department Care Team (Latest Contact Info) Description 05/26/2017 1:00 PM CDT - 05/26/2017 11:59 PM CDT Hospital Encounter [facility] [address] [place], [place] [phone] Bri Lobo, PT [address] [place], [place] [phone] Discharge Disposition: Home - Discharge to Home or Self Care Social History Tobacco Use Types Packs/Day Years Used Date Smoking Tobacco: Never Assessed Sex and Gender Information Value Date Recorded Sex Assigned at Not on file Legal Sex Male 10:58 AM CDT Gender Identity Not on file Sexual Orientation Not on file documented as of this encounter Nursing Notes * Bri Lobo, PT - 05/26/2017 4:32 PM CDT 05/26/17 1306 General OP therapy treatment number 2KW Reported Falls no Subjective Patient Statement My dizziness hasn't been too bad, yesterday when I got home I was really tired and passed out and went to bed. Reports he hasn't been doing much. I'm still having a lotof neck/back pain are really bad. Notes he has been sitting a computer all morning which makes neck/back worse. Patient Pain Currently in Pain Yes Adult patient- Able to self-report pain Yes Pain Assessment (0-10, FACES, Verbal Descriptive) 0-10 (Numeric Rating Scale) Pain Assessment Pain Score 8 Pain Location Neck (Back= 7/10) Vital Signs Heart Rate 82 Blood Pressure 122/75 Gait Gait Assistance Independent Balance Other instructed in balance HEP in corner: feet together EO X 30 , + head tips/turns, eyes closed X30 Equipment assisted testing and training Balance training equipment SOT - Sensory Organization Test;Other SOT - Sensory Organization Test Sensory Organization Test (SOT) The SOT protocol isolates and quantifies abnormalities in the patient???s use of the three sensory systems that contribute to postural control (somatosensory, visual and vestibular), as well as the brain???s central integration of these inputs. The following performance attributes were in the abnormal range: 1. The KRISTAN score which reflects the patient???s ability to effectively use input cues from the somatosensory system to maintain balance. 2. The VIS score which reflects the patient???s ability to effectively use input cues from the visual system to maintain balance. 3. The VEST score which reflects the patient???s ability to effectively use input cues from the vestibular system to maintain balance. 4. The PREF score which is the degree to which the patient uses visual information to maintain balance, even when it is incorrect or unstable (moving visual environments). 5. The patient???s average balance control (composite score) across all six sensory conditions is below normative performance range at 44 (normative response 70). 6. SOT condition(s): 1,2,3,4,5,6. Fall(s) on: 5,6. Other balance training equipment Adaptation Test (ADT) The ADT objectively quantifies a patient???s ability to adapt or develop a balance response strategy to irregular or varying support surfaces. This ability would be required for effective motor learning and safe community level function. The following performance attributes were in the abnormal range: 1. Toes-Up perturbation: Abnormal performance trial(s): 2,3,4,5. Fall trial(s): 2,3,5. 2. Toes-Down perturbation: Abnormal performance trial(s): 1,3. Fall trial(s): 1,3. Assessment/Plan Clinical Impression Patient continues to demonstrate signs of significant balance impairments with score on SOT of 35% below norm. Patient demonstrate significant instabiltiy throughout SOT performance requiring assist of 1-2 for falls during testing however of not also demonstrated multiple falls inbetween trials which may indicate some exaggeration of symptoms throughout testing. Planned treatment intervention/HEP rivermead scale, [place], static and dynamic balance Frequency/Duration 2x/week X 2-4 weeks Safety Concerns fall risk Skill of a therapist is required Yes Bri Lobo PT, DPT, ATC documented in this encounter Plan of Treatment Not on file documented as of this encounter Visit Diagnoses Not on filedocumented in this encounter Care Teams Greeting Card Writer Relationship Specialty Start Date End Date Kiley Todd MD [address] [place] [address] PCP - General Occupational Medicine 05/19/17 08/03/17 documented as of this encounter
--- OUTSIDE RECORDS SUMMARY | 2024-11-23 00:32 | XMS_ITS | Encounter Summary ---
Author Organization [employer] Address [address] [place] [address] Care Team Providers Care Medical Assistant Instructor Name Role Phone Kiley Todd MD Primary Care Provider [phone]- [phone] Encounter Details Date Type Department Care Team (Latest Contact Info) Description 06/28/2017 9:32 AM CDT - 06/28/2017 11:59 PM CDT Hospital Encounter [facility] [address] [place], [place] [phone] Verónica Dominguez, PT [address] [place], [place] [phone] Discharge Disposition: Home - Discharge to Home or Self Care Social History Tobacco Use Types Packs/Day Years Used Date Smoking Tobacco: Never Assessed Sex and Gender Information Value Date Recorded Sex Assigned at Not on file Legal Sex Male 10:58 AM CDT Gender Identity Not on file Sexual Orientation Not on file documented as of this encounter Nursing Notes * Verónica Dominguez, PT - 06/28/2017 11:01 AM CDT 06/28/17 0953 General OP therapy treatment number 4 AY Insurance WC Reported Falls no Subjective Patient Statement Passed his OSHA 30 test and now they want him to do a OSHA 40 test. Balance is about the same. Has been having soem real bad severe headaches. Has been doing therapy for his back. [facility]es [facility] after [facility]si [facility] On . Dizziness comes and goes, was just sitting and its like someone just smacks him and hes moving back and forth. Was sitting still. Had this happen a long long time ago, has tried to explain it to people but its hard, its like your standing and trying to catch your balance and someone is shaking you, comes on realy quick and lasts maybe 5-6 seconds. Not moving but seems like your moving. Tried to stand with his eyes closed andkept falling left or backwards. Has been doing his exercises in the corner. Pain Assessment Pain Score 6 Pain Location Neck;Leg Pain Descriptors (burnign pain from belt line around to knee) Vital Signs Heart Rate 58 Blood Pressure 103/65 Transfer/Mobility Training Sit to Stand Independent Stand to Sit Independent Gait Gait Assistance Supervision/Setup Deviation (antalgic at times) Gait Pattern Reciprocal Complex/Challenged Gait gait with head turns and tips, marching, retro gait with SBA, one LOB with 180 degree turn with mod A to correct but mulitple other 180 degree turns with no LOB; stepping over4 blocks with SBA Balance Other in // bars: feet apart on black foam, increase sway noted, SBA to LCA, romber on black foam best was 10 prior to LOB, excessive sway, leobardo tandme firm surfaces EO SBA, 2 way rocker board f/b and l/r with head steady and EO, initially LCA but improved to SBA; foam airex pad at dynavision modeA with SBA to LCA x 3 60 reps working on dynamic balance and functional reach Assessment/Plan Clinical Impression Se continues to demonstrate impaired balance, especially with EC conditionsand on compliant surfaces. C/o pain in mulitple body regions. Frequency/Duration 1-2x/week Safety Concerns fall risk Skill of a therapist is required Yes Verónica Dominguez PT, DPT documented in this encounter Plan of Treatment Not on file documented as of this encounter Visit Diagnoses Not on filedocumented in this encounter Care Teams Medical Assistant Instructor Relationship Specialty Start Date End Date Kiley Todd MD [address] [place] [address] PCP - General Occupational Medicine 05/19/17 08/03/17 documented as of this encounter
--- OUTSIDE RECORDS SUMMARY | 2024-11-23 00:32 | XMS_ITS | Encounter Summary ---
Author Organization [employer] Address [address] [place] [address] Care Team Providers Care Denture Technician Name Role Phone Patient, None Per Primary Care Provider Unavaila ble Encounter Details Date Type Department Care Team (Latest Contact Info) Description 08/19/2017 9:03 AM CDT - 08/19/2017 11:59 PM CDT Hospital Encounter [facility] [address] [place], [place] [phone] Verónica Dominguez, PT [address] [place], [place] [phone] Discharge Disposition: Home - Discharge to Home [...] Progress Notes * Verónica Dominguez, PT - 09/30/2017 9:08 AM CST [facility] Physical Therapy Discharge for Outpatient Rehabilitation Patient Name: Edilberto Hawley Date of : 1955 Provider's Name: Kiley Todd MD Primary diagnosis : (P) Dizziness, IMbalance Therapy treatment diagnosis: post concussion syndrome Start of Care Date: (P) 05/25/2017 Certification Start Date: -- Certification Date End: -- OP therapy treatment number: 10 AY Date of last visit: 08/19/17 08/19/17 0949 General OP therapy treatment number [address] Todd Insurance WC Onset Date 04/16/17 Start of Care Date 05/25/17 Primary diagnosis Dizziness, IMbalance Physician Follow up dates (09/15/17 @ [facility]) Subjective Patient Statement In a lot of pain today. saw [facility] the other day. Some doctor wants him to transfer his care somewhere else but he doesnt want to. Contacted a personal computer network engineer. Has an appt on the of this month at [facility]. Legs are burning, on the left side it is going past his knee, its a pinched nerve. Ears are ringing really loud today. No falls since last session (doesreport fall off ladder when putting up fan and also rolled ot of bed, both of these previously documented). Also walking about a mile and a half. Patient Pain Currently in Pain Yes Pain Assessment (0-10, FACES, Verbal Descriptive) 0-10 (Numeric Rating Scale) Pain Assessment Pain Score 7 Pain Location (left shoulder, back) Vital Signs Heart Rate 78 Blood Pressure 125/68 Transfer/Mobility Training Sit to Stand Independent Stand to Sit Independent Gait Gait Assistance Supervision/Setup Assistive Device None Gait Pattern Reciprocal Complex/Challenged Gait mini hurdles for looney with and without toe taps then sidestps with toe tapswith LCA; sidesteps across foam airex balance beam with LCA to min A Balance Other standing on blue airex balance beam with head turns and tips and SBA to LCA, 2 way rocker board f/b and l/r with head steady EO SBA to LCA then added in head turns and tips, LCA to min A; dynavision mode A standing on foam stepping stones romberg then semi tandem with 2x60 each position working on dynamic reach and balance Dynamic Balance Tests/Training Dynamic Gait Index 16/24 on 06/08/17 compared to 21/21 on 05/25/17 TUG - Timed up & go 15.14 on 06/08/17 Functional Gait Assessment (08/09/17) compared to intially Therapeutic exercise Nu-Step WL 5 x 10' UE and LE Skilled Interventions Other skilled interventions HEP: feet apart EO and EC, romberg EO Assessment/Plan Clinical Impression Challenged with foam balance beam. C/o tinnitus continue as well as back pain. Planned treatment intervention/HEP challenge balance, fall recovery, dynamic balance and gait Frequency/Duration 2x/week x 2 weeks Safety Concerns fall risk Skill of a therapist is required Yes GOALS: Goal 1: Client to demonstrate improved balance with a score greater than 48/56 on the Inman Balance Assessment, indicating low risk for falls. Goal 1 progress: Not Met Goal 2: Client to demonstrate ability to step over objects in all directions by scoring less than 14 seconds on the [place] Step Test, indicating low risk for falls. Goal 2 progress: Not Met Goal 3: Client to demonstrate safe floor to stand transfers, to show ability to recover safely froma fall. Goal 3 progress: Met Goal 4: Client to demonstrate improved static balance with normal sway velocity for patient's age range on all categories except foam eyes closed on the Modified CTSIB. Goal 4 progress: Not Met Goal 5: Client able to return to functional activities without reports of dizziness. Goal 5 progress: Not Met DISCHARGE STATUS Pt did not return following last visit seen above. Will d/c from PT. Thank you for this referral. Please contact me with any questions or comments. Written by therapist: Verónica Dominguez, PT Date: 09/30/2017 9:08 AM [facility] [address] [place] [address] N ELECTRONIC TECHNICIAN documented in this encounter Nursing Notes * Verónica Dominguez, PT - 08/19/2017 2:12 PM CDT 08/19/17 0949 General OP therapy treatment number [address] Todd Insurance Reported Falls no HEP compliant Physician Follow up dates (09/15/17 @ [facility]) Subjective Patient Statement In a lot of pain today. saw [facility] the other day. Some doctor wants him to transfer his care somewhere else but he doesnt want to. Contacted a personal computer network engineer. Has an appt on the of this month at [email or web address] office. Legs are burning, on the left side it is going past his knee, its a pinched nerve. Ears are ringing really loud today. No falls since last session (doesreport fall off ladder when putting up fan and also rolled ot of bed, both of these previously documented). Also walking about a mile and a half. Patient Pain Currently in Pain Yes Pain Assessment (0-10, FACES, Verbal Descriptive) 0-10 (Numeric Rating Scale) Pain Assessment Pain Score 7 Pain Location (left shoulder, back) Vital Signs Heart Rate 78 Blood Pressure 125/68 Transfer/Mobility Training Sit to Stand Independent Stand to Sit Independent Gait Gait Assistance Supervision/Setup Assistive Device None Gait Pattern Reciprocal Complex/Challenged Gait mini hurdles for looney with and without toe taps then sidestps with toe tapswith LCA; sidesteps across foam airex balance beam with LCA to min A Balance Other standing on blue airex balance beam with head turns and tips and SBA to LCA, 2 way rocker board f/b and l/r with head steady EO SBA to LCA then added in head turns and tips, LCA to min A; dynavision mode A standing on foam stepping stones romberg then semi tandem with 2x60 each position working on dynamic reach and balance Therapeutic exercise Nu-Step WL 5 x 10' UE and LE Skilled Interventions Other skilled interventions HEP: feet apart EO and EC, romberg EO Assessment/Plan Clinical Impression Challenged with foam balance beam. C/o tinnitus continue as well as back pain. Planned treatment intervention/HEP challenge balance, fall recovery, dynamic balance and gait Frequency/Duration 2x/week x 2 weeks Safety Concerns fall risk Skill of a therapist is required Yes Verónica Dominguez PT, DPT documented in this encounter Plan of Treatment Not on file documented as of this encounter Visit Diagnoses Not on filedocumented in this encounter Care Teams Denture Technician Relationship Specialty Start Date End Date Patient, None Per PCP - General 08/04/17 10/24/17 documented as of this encounter
--- OUTSIDE RECORDS SUMMARY | 2024-11-23 00:32 | XMS_ITS | Encounter Summary ---
Author Organization [employer] Address [address] [place] [address] Care Team Providers Care Feed Inspection Supervisor Name Role Phone Kiley Todd MD Primary Care Provider +1- [phone] Encounter Details Date Type Department Care Team (Latest Contact Info) Description 06/18/2017 12:27 PM CDT - 06/18/2017 11:59 PM CDT Hospital Encounter [facility] [address] [place] [phone] Kaye Knight, MISCELLANEOUS MACHINE OPERATOR [address] [place], [place] [phone] Discharge Disposition: Home - Discharge to Home or Self Care Social History Tobacco Use Types Packs/Day Years Used Date Smoking Tobacco: Never Assessed Sex and Gender Information Value Date Recorded Sex Assigned at Not on file Legal Sex Male 10:58 AM CDT Gender Identity Not on file Sexual Orientation Not on file documented as of this encounter Nursing Notes * Kaye Knight, MISCELLANEOUS MACHINE OPERATOR - 06/18/2017 1:27 PM CDT 06/18/17 1259 General OP therapy treatment number 2 JK Referring Provider [employer] Insurance/Authorization 12/25 2 patient identifiers Yes Primary diagnosis LBP with radiation and R TP fractures L1-3 Physician Follow up dates 06/21/17 Subjective Patient Statement Pt states his back hurts so bad right now he's almost in tears, he hasburning sensation really bad in his buttocks, sometimes gets a sharp pain, just wants to go home and lie down. Patient Pain Currently in Pain Yes Pain Assessment Pain Score 8 (close to a 9) Therapeutic exercise Mat exercises Sitting Supine bilat hip add luly x 10 hold 5 sec, glut set x 10 hold 5 sec, TrA luly x 10 hold 5 sec Sitting Sciatic nerve glide x 2 bilat 20 pumps, added to HEP. Modalities Modalities used Electrical Stimulation - IFC Electrical Stimulation IFC - Settings 80-150 Hz Electrical Stimulation IFC - Time/Duration 10' Electrical Stimulation IFC - Electrode Placement B lumbar paraspinals Electrical Stimulation IFC - Intensity Pt's tolerance Thermal Agents Ice Pack Thermal Agents Location lumbar Thermal Agents Time 10' with IFC in supine Skilled Interventions Other skilled interventions Updated HEP: TrA luly 2x10x5 ; glute sets 2x10x5 ; hip add luly 2x10x5 ; seated sciatic nerve glide 2 x 20 pumps; all 2-3x/day Assessment/Plan Safety Concerns L CAROLANN approx 2 years ago, L elbow ORIF, R wrist ORIF, B RC repairs Supervising Therapist Enrrique Bragg PT documented in this encounter Plan of Treatment Not on file documented as of this encounter Visit Diagnoses Not on filedocumented in this encounter Care Teams Feed Inspection Supervisor Relationship Specialty Start Date End Date Kiley Todd MD [address] [place] [facility] [place] [address] PCP - General Occupational Medicine 05/19/17 08/03/17 documented as of this encounter
--- OUTSIDE RECORDS SUMMARY | 2024-11-23 00:32 | XMS_ITS | Encounter Summary ---
Author Organization [employer] Address [address] [place] [id number] Care Team Providers Care Tetryl Boiling Tub Operator Name Role Phone Kiley Todd MD Primary Care Provider [phone]- [phone] Reason for Referral * Diagnostic Radiology (Routine) - Closed Specialty Diagnoses / Procedures Referred By Celine almaguer Referred To Contact Diagnoses Left shoulder pain Decreased range of motion (ROM) of shoulder Procedures [facility] Kiley Todd MD [address] [place] [address] Phone: tel: fax: Referral ID Status Reason Start Date Expiration Date Visits Re quested Visits Authorized [id number] Closed 06/23/2017 06/23/2018 1 1 * MRI/CAT Scan (Routine) - Closed Specialty Diagnoses / Procedures Referred By Celine almaguer Referred To Contact Radiology Diagnoses Left shoulder pain Decreased range of motion (ROM) of shoulder Procedures MRI UPPER EXTREMITY JOINT W CONTRAST Kiley Todd MD [address] [place] [address] Phone: tel: fax: Referral ID Status Reason Start Date Expiration Date Visits Re quested Visits Authorized [id number] Closed 06/23/2017 06/23/2018 1 1 Encounter Details Date Type Department Care Team (Latest Contact Info) Description 06/23/2017 Transcribe Orders [facility] [address] [place] [address] Kiley Todd MD [address] [place] [address] Left shoulder pain (Primary Dx); Decreased range of motion (ROM) of shoulder Social History Tobacco Use Types Packs/Day Years Used Date Smoking Tobacco: Never Assessed Sex and Gender Information Value Date Recorded Sex Assigned at Not on file Legal Sex Male 10:58 AM CDT Gender Identity Not on file Sexual Orientation Not on file documented as of this encounter Plan of Treatment Not on file documented as of this encounter Results * MRI UPPER EXTREMITY JOINT W CONTRAST (06/30/2017 3:54 PM CDT) Anatomical Region Laterality Modality Magnetic Resonan ce 06/30/2017 3:30 PM CDT Impressions 06/30/2017 5:52 PM CDT 1. Large full-thickness tear of the supraspinatus and infraspinatus tendons. 2. Moderate subscapularis and infraspinatus tendinopathy. 3. Mild to moderate degenerative changes in the glenohumeral joint. Posterior labral degeneration is noted without a discrete tear. 4. Rupture along the intra-articular course of the long head of the biceps tendon. 5. Mild degenerative changes in the left AC joint. Electronically signed by: Sunil Morris MD - 06/30/2017 5:52 PM Narrative 06/30/2017 5:52 PM CDT EXAM: MR UPPER EXT JOINT W CONT LT CLINICIAN'S HISTORY: SHOULDER PAIN, NO XRAY COMPARISON: None. TECHNIQUE: MRI of the left shoulder after fluoroscopic injection of gadolinium contrast into the left glenohumeral joint (MR shoulder arthrogram). Findings: Suture anchors are identified in the greater tuberosity from rotator cuff repair. There is a large full-thickness tear of the supraspinatus tendon and superior fibers of the infraspinatus tendon. The proximal torn fibers are retracted to the level of the glenohumeral joint. There is mild chronic atrophy of the supraspinatus and infraspinatus muscles. There is moderate tendinopathy of the subscapularis and infraspinatus tendons. The humeral head is high riding due to this rotator cuff tear. Low-grade partial thickness cartilage loss is identified in the glenohumeral joint. Mild osteophyte formation and subchondral cystic change is also noted inferiorly in the glenohumeral joint. There is evidence of posterior labral degeneration without a discrete tear. The intra-articular course of the long head of the biceps tendon is nonvisualized, consistent with tendinous rupture. No acute fracture is visualized. Mild degenerative changes are seen in the left AC joint. Procedure Note Sunil Morris MD - 06/30/2017 EXAM: MR UPPER EXT JOINT W CONT LT CLINICIAN'S HISTORY: SHOULDER PAIN, NO XRAY COMPARISON: None. TECHNIQUE: MRI of the left shoulder after fluoroscopic injection of gadolinium contrast into the left glenohumeral joint (MR shoulder arthrogram). Findings: Suture anchors are identified in the greater tuberosity from rotator cuff repair. There is a large full-thickness tear of the supraspinatus tendon and superior fibers of the infraspinatus tendon. The proximal torn fibers are retracted to the level of the glenohumeral joint. There is mild chronic atrophy of the supraspinatus and infraspinatus muscles. There is moderate tendinopathy of the subscapularis and infraspinatus tendons. The humeral head is high riding due to this rotator cuff tear. Low-grade partial thickness cartilage loss is identified in the glenohumeral joint. Mild osteophyte formation and subchondral cystic change is also noted inferiorly in the glenohumeral joint. There is evidence of posterior labral degeneration without a discrete tear. The intra-articular course of the long head of the biceps tendon is nonvisualized, consistent with tendinous rupture. No acute fracture is visualized. Mild degenerative changes are seen in the left AC joint. IMPRESSION: 1. Large full-thickness tear of the supraspinatus and infraspinatus tendons. 2. Moderate subscapularis and infraspinatus tendinopathy. 3. Mild to moderate degenerative changes in the glenohumeral joint. Posterior labral degeneration is noted without a discrete tear. 4. Rupture along the intra-articular course of the long head of the biceps tendon. 5. Mild degenerative changes in the left AC joint. Electronically signed by: Sunil Morris MD - 06/30/2017 5:52 PM us Kiley Todd MD IMG MRI ORDERABLES Final R esult * [facility] (06/30/2017 3:19 PM CDT) Anatomical Region Laterality Modality Radio Fluoroscop y 06/30/2017 2:45 PM CDT Narrative 06/30/2017 3:28 PM CDT EXAM: DX FLUORO GUIDE NEEDLE LOC PLACEMENT CLINICIAN'S HISTORY: L shoulder pain, Decreased ROM HISTORY REPORTED TO TECHNOLOGIST/OTHER INFORMATION: ??Pt fell backwards 6-8 feet catching himself with lt arm April 20, decreased ROM, pain radiating from lt shoulder into elbow and neck, hx of rotator cuff repair 3 yrs ago, fluoro time 0.9 min COMPARISON: None. TECHNIQUE: This study was performed by radiology clerk Little Pino under my direct and personal supervision. Prior to the procedure, informed, written consent was obtained from the patient. ??With the patient in the supine position on the fluoroscopy table, an appropriate approach to the left glenohumeral joint was localized by fluoroscopy. ??The skin anterior to the joint was prepared and draped in standard, sterile fashion. ?? Local anesthesia was achieved with 1% lidocaine. ??Using fluoroscopic guidance, a 22 gauge spinal needle was advanced into the glenohumeral joint. ??A mixture of gadolinium in saline, lidocaine with epinephrine, and iodine contrast was injected. ??A total of about 10 mm of this mixture was injected. ??The needle was then withdrawn whole. ??The patient tolerated the procedure well. ??There were no complications. The patient left the department for MRI imaging in good condition after receiving post procedure instructions. ?? Impression: 1. Successful arthrogram of the left shoulder for MRI. ?? 2. No complications. ? Electronically signed by: Kamran Laguerre MD - 06/30/2017 3:28 PM Procedure Note Kamran Laguerre MD - 06/30/2017 EXAM: DX FLUORO GUIDE NEEDLE LOC PLACEMENT CLINICIAN'S HISTORY: L shoulder pain, Decreased ROM HISTORY REPORTED TO TECHNOLOGIST/OTHER INFORMATION: Pt fell backwards 6-8 feet catching himself with lt arm April 20, decreased ROM, pain radiating from lt shoulder into elbow and neck, hx of rotator cuff repair 3 yrs ago, fluoro time 0.9 min COMPARISON: None. TECHNIQUE: This study was performed by radiology clerk Little Pino under my direct and personal supervision. Prior to the procedure, informed, written consent was obtained from the patient. With the patient in the supine position on the fluoroscopy table, an appropriate approach to the left glenohumeral joint was localized by fluoroscopy. The skin anterior to the joint was prepared and draped in standard, sterile fashion. Local anesthesia was achieved with 1% lidocaine. Using fluoroscopic guidance, a 22 gauge spinal needle was advanced into the glenohumeral joint. A mixture of gadolinium in saline, lidocaine with epinephrine, and iodine contrast was injected. A total of about 10 mm of this mixture was injected. The needle was then withdrawn whole. The patient tolerated the procedure well. There were no complications. The patient left the department for MRI imaging in good condition after receiving post procedure instructions. Impression: 1. Successful arthrogram of the left shoulder for MRI. 2. No complications. Electronically signed by: Kamran Laguerre MD - 06/30/2017 3:28 PM us Kiley Todd MD IMG PRO FL ORDERABLES Veronica l Result documented in this encounter Visit Diagnoses Diagnosis Left shoulder pain- Primary Pain in joint, shoulder region Decreased range of motion (ROM) of shoulder Left shoulder pain Pain in joint, shoulder region Decreased range of motion (ROM) of shoulder Left shoulder pain Pain in joint, shoulder region Decreased range of motion (ROM) of shoulder documented in this encounter Care Teams Tetryl Boiling Tub Operator Relationship Specialty Start Date End Date Kiley Todd MD [address] [place] [address] PCP - General Occupational Medicine 05/19/17 08/03/17 documented as of this encounter
--- OUTSIDE RECORDS SUMMARY | 2024-11-23 00:32 | XMS_ITS | Encounter Summary ---
Author Organization [employer] Address [address] [place] [address] Care Team Providers Care Contract Associate Name Role Phone Kiley Todd MD Primary Care Provider [phone]- [phone] Reason for Referral * MRI/CAT Scan (Routine) - Closed Specialty Diagnoses / Procedures Referred By Celine almaguer Referred To Contact Radiology Diagnoses Fall Confusion Weakness Balance problems Procedures MRI BRAIN W WO CONTRAST Kiley Todd MD [address] [place] [address] Phone: tel: fax: Referral ID Status Reason Start Date Expiration Date Visits Re quested Visits Authorized [id number] Closed 06/10/2017 06/10/2018 1 1 Reason for Visit * MRI/CAT Scan (Routine) - Closed Specialty Diagnoses / Procedures Referred By Celine almaguer Referred To Contact Radiology Diagnoses Fall Confusion Weakness Balance problems Procedures MRI BRAIN W WO CONTRAST Kiley Todd MD [address] [place] [address] Phone: tel: fax: Referral ID Status Reason Start Date Expiration Date Visits Re quested Visits Authorized [id number] Closed 06/10/2017 06/10/2018 1 1 Encounter Details Date Type Department Care Team (Latest Contact Info) Description 06/17/2017 1:15 PM CDT - 06/17/2017 11:59 PM CDT Hospital Encounter [facility] [address] [place] [address] Kiley Todd MD [address] [place] [address] Fall; Confusion; Weakness; Balance problems Discharge Disposition: Home - Discharge to Home [...] as of this encounter Visit Diagnoses Diagnosis Fall Unspecified fall Confusion Unspecified psychosis Weakness Other malaise and fatigue Balance problems Other symptoms involving nervous and musculoskeletal systems documented in this encounter Care Teams Contract Associate Relationship Specialty Start Date End Date Kiley Todd MD [address] [place] [address] PCP - General Occupational Medicine 05/19/17 08/03/17 documented as of this encounter
--- OUTSIDE RECORDS SUMMARY | 2024-11-23 00:32 | XMS_ITS | Encounter Summary ---
Author Organization [employer] Address [address] [place] [address] Care Team Providers Care Recoater Name Role Phone Coco Leos PA-C Primary Care Provider [phone] Encounter Details Date Type Department Care Team (Latest Contact Info) Description 05/27/2018 Transcribe Orders [facility] [address] [place] [id number] Lacey Perdue MD [address] [address] Cellulitis of right foot (Primary Dx); Encounter for long-term (current) use of antibiotics; Urinary tract infection, site not specified; Fitting and adjustment of vascular catheter Social History Tobacco Use Types Packs/Day Years [...] of Assessment Author No 10/25/2017 2:00 PM STUDENT LOAN COUNSELOR Galvan, Am y S, SUPPORT TEAM MEMBER * Do you have serious difficulty walking [...] this encounter Results * (ABNORMAL) Sedimentation rate (05/27/2018 9:45 AM CDT) Sedimentation Rate 103(H) 0 - 20 mm/hr [facility] Blood specimen (specimen) 05/27/2018 9:45 AM CDT 05/27/2018 11:02 AM CDT us Lacey Perdue MD LAB BLOOD ORDERABLES Final R esult [facility] [address] [place], [place] [phone] * (ABNORMAL) C-reactive protein (05/27/2018 9:45 AM CDT) CRP 8.70(H) 0.2 - 0.9 mg/dL [facility] Blood specimen (specimen) 05/27/2018 9:45 AM CDT 05/27/2018 11:02 AM CDT us Lacey Perdue MD LAB BLOOD ORDERABLES Final R esult [facility] [address] [place], [place] [phone] * (ABNORMAL) Comprehensive metabolic panel (05/27/2018 9:45 AM CDT) Sodium 134(L) 136 - 145 mmol/L [facility] Potassium 4.4 3.5 - 5.1 mmol/L [facility] [employer] [facility] Chloride 99 98 - 107 mmol/L [facility] CO2 35(H) 21 - 32 mmol/L [facility] [employer] [facility] Glucose 113(H) 74 - 106 mg/dL [facility] [employer] [facility] BUN 13 7.0 - 18.0 mg/dL [facility] Creatinine 1.05 0.70 - 1.30 mg/dL [facility] [employer] [facility] Calcium 9.0 8.5 - 10.1 mg/dL [facility] [employer] [facility] Total Protein 6.5 6.4 - 8.2 g/dL [facility] [employer] Albumin 2.9(L) 3.4 - 5.0 g/dL [facility] [employer] [facility] Bilirubin Total 0.3 0.2 - 1.0 mg/dL [facility] [employer] [facility] Alkaline Phosphatase 105 56 - 119 U/L [facility] [employer] [facility] AST 20 15 - 37 U/L [facility] [employer] [facility] ALT 31 12 - 78 U/L [facility] [employer] [facility] Creatinine Based eGFR >60 [facility] Comment: GFR REFERENCE RANGE: >60 mL/min/1.73m2 -- An eGFR of > than, or = to 60, may indicate normal renal function or mildly decreased GFR. EGFR /Malaysian >60 [facility] Comment: -- An eGFR of > than, or = to 60, may indicate normal renal function or mildly decreased GFR. Blood specimen (specimen) 05/27/2018 9:45 AM CDT 05/27/2018 11:02 AM CDT us Lacey Perdue MD LAB BLOOD ORDERABLES Final R esult [facility] [address] [place], [place] [phone] * (ABNORMAL) CBC and differential (05/27/2018 9:45 AM CDT) WBC 10.53 4.00 - 11.00 th/mm3 [facility] RBC 4.08(L) 4.50 - 6.50 mill/mm3 [facility] HGB 12.6(L) 13.8 - 18.0 g/dL [facility] HCT 38.5(L) 40.0 - 54.0 % [facility] MCV 94.4 76 - 99 fL [facility] MCH 30.9 27.0 - 32.0 pg [facility] MCHC 32.7 30.0 - 35.0 g/dL [facility] Platelets 386 135 - 470 th/mm3 [facility] RDW-CV 40.6 34.9 - 51.3 fL [facility] MPV 9.6 8.0 - 12.5 fL [facility] Differential Type AUTOMATED DIFFERENTIAL [facility] Neutrophil % 65.7 45.0 - 75.0 % [facility] Lymphocytes % 21.4 20.0 - 45.0 % [facility] Monocyte % 9.4 0.0 - 10.0 % [facility] Eosinophils Relative % 2.3 0.0 - 5.0 % [facility] Basophils % 0.3 0.0 - 2.0 % [facility] Immature Granulocytes% 0.9 0.0 - 1.6 % [facility] Neutrophils Absolute 6.93 2.00 - 7.900 th/mm3 [facility] Lymphocytes Absolute 2.25 1.00 - 4.00 th/mm3 [facility] Monos Absolute 0.99(H) 0.0 - 0.80 th/mm3 [facility] Eosinophils Absolute Count 0.24 0.00 - 0.40 th/mm3 [facility] Basophils Absolute 0.03 0.00 - 0.10 th/mm3 [facility] Immature Granulocytes Absolute 0.09 0.0 - 0.20 th/mm3 [facility] Blood specimen (specimen) BLOOD SPECIMEN / Unknown 05/27/2018 9:45 AM CDT 05/27/2018 11:02 AM CDT us Lacey Perdue MD LAB BLOOD ORDERABLES Final R esult [facility] [address] [place], [place] [phone] documented in this encounter Visit Diagnoses Diagnosis Cellulitis of right foot- Primary Cellulitis and abscess of foot, except toes Encounter for long-term (current) use of antibiotics Urinary tract infection, site not specified Fitting and adjustment of vascular catheter documented in this encounter Care Teams Recoater Relationship Specialty Start Date End Date Coco Leos PA-C [address] [address] PCP - General Physician Gyroscope Repairer 10/25/17 11/24/18 documented as of this encounter
--- OUTSIDE RECORDS SUMMARY | 2024-11-23 00:32 | XMS_ITS | Encounter Summary ---
Author Organization [employer] Address [address] [place] [address] Care Team Providers Care Bottle Caser Name Role Phone Coco Leos PA-C Primary Care Provider [phone] Encounter Details Date Type Department Care Team (Latest Contact Info) Description 06/03/2018 11:45 AM CDT - 06/03/2018 11:59 PM CDT Hospital Encounter [facility] [address] [place] [address] Cellulitis of right foot; Encounter for long-term [...] Apply topically 2 (two) times daily. 8 naloxone (NARCAN) 2 MG/2ML injection 2 [...] Date/Time Associated Diagnosis Comments SEDIMENTATION RATE Routine 06/03/2018 11 :45 AM CDT Cellulitis of right foot Encounter for long-term (current) use of antibiotics Urinary tract infection, site not specified CBC AND DIFFERENTIAL Routine 06/03/2018 11:45 AM CDT Cellulitis of right foot Encounter for long-term (current) use of antibiotics Urinary tract infection, site not specified C-REACTIVE PROTEIN Routine 06/03/2018 11 :45 AM CDT Cellulitis of right foot Encounter for long-term (current) use of antibiotics Urinary tract infection, site not specified COMPREHENSIVE METABOLIC PANEL Routine 06/03/2018 11:45 AM CDT Cellulitis of right foot Encounter for long-term (current) use of antibiotics Urinary tract infection, site not specified documented in this encounter Results * (ABNORMAL) Sedimentation rate (06/03/2018 11:45 AM CDT) Sedimentation Rate 69(H) 0 - 20 mm/hr [facility] Blood specimen (specimen) 06/03/2018 11:45 AM CDT 06/03/2018 1:08 PM CDT us Lacey Perdue MD LAB BLOOD ORDERABLES Final R esult [facility] [address] [place], [place] [phone] * (ABNORMAL) C-reactive protein (06/03/2018 11:45 AM CDT) CRP 1.90(H) 0.2 - 0.9 mg/dL [facility] Blood specimen (specimen) 06/03/2018 11:45 AM CDT 06/03/2018 1:08 PM CDT us Lacey Perdue MD LAB BLOOD ORDERABLES Final R esult [facility] [address] [place], [place] [phone] * (ABNORMAL) Comprehensive metabolic panel (06/03/2018 11:45 AM CDT) Sodium 139 136 - 145 mmol/L [facility] Potassium 4.0 3.5 - 5.1 mmol/L [facility] Chloride 102 98 - 107 mmol/L [facility] CO2 30 21 - 32 mmol/L [facility] Glucose 138(H) 74 - 106 mg/dL [facility] BUN 9 7.0 - 18.0 mg/dL [facility] Creatinine 1.00 0.70 - 1.30 mg/dL [facility] Calcium 8.9 8.5 - 10.1 mg/dL [facility] Total Protein 6.5 6.4 - 8.2 g/dL [facility] Albumin 3.0(L) 3.4 - 5.0 g/dL [facility] Bilirubin Total 0.3 0.2 - 1.0 mg/dL [facility] Alkaline Phosphatase 97 56 - 119 U/L [facility] AST 18 15 - 37 U/L [facility] ALT 13 12 - 78 U/L [facility] Creatinine Based eGFR >60 [facility] Comment: GFR REFERENCE RANGE: >60 mL/min/1.73m2 -- An eGFR of > than, or = to 60, may indicate normal renal function or mildly decreased GFR. EGFR /Zambian >60 [facility] Comment: -- An eGFR of > than, or = to 60, may indicate normal renal function or mildly decreased GFR. Blood specimen (specimen) 06/03/2018 11:45 AM CDT 06/03/2018 1:08 PM CDT us Lacey Perdue MD LAB BLOOD ORDERABLES Final R esult [facility] [address] [place], [place] [phone] * (ABNORMAL) CBC and differential (06/03/2018 11:45 AM CDT) WBC 5.55 4.00 - 11.00 th/mm3 [facility] RBC 4.06(L) 4.50 - 6.50 mill/mm3 [facility] HGB 12.5(L) 13.8 - 18.0 g/dL [facility] HCT 36.9(L) 40.0 - 54.0 % [facility] MCV 90.9 76 - 99 fL [facility] MCH 30.8 27.0 - 32.0 pg [facility] MCHC 33.9 30.0 - 35.0 g/dL [facility] Platelets 221 135 - 470 th/mm3 [facility] RDW-CV 39.0 34.9 - 51.3 fL [facility] MPV 9.7 8.0 - 12.5 fL [facility] Differential Type AUTOMATED DIFFERENTIAL [facility] [employer] [facility] Neutrophil % 63.4 45.0 - 75.0 % [facility] Lymphocytes % 24.0 20.0 - 45.0 % [facility] Monocyte % 9.7 0.0 - 10.0 % [facility] Eosinophils Relative % 2.5 0.0 - 5.0 % [facility] Basophils % 0.2 0.0 - 2.0 % [facility] Immature Granulocytes% 0.2 0.0 - 1.6 % [facility] Neutrophils Absolute 3.52 2.00 - 7.900 th/mm3 [facility] Lymphocytes Absolute 1.33 1.00 - 4.00 th/mm3 [facility] Monos Absolute 0.54 0.0 - 0.80 th/mm3 [facility] Eosinophils Absolute Count 0.14 0.00 - 0.40 th/mm3 [facility] Basophils Absolute 0.01 0.00 - 0.10 th/mm3 [facility] Immature Granulocytes Absolute 0.01 0.0 - 0.20 th/mm3 [facility] Blood specimen (specimen) BLOOD SPECIMEN / Unknown 06/03/2018 11:45 AM CDT 06/03/2018 1:08 PM CDT us Lacey Perdue MD LAB BLOOD ORDERABLES Final R esult [facility] [address] [place], [place] [phone] documented in this encounter Visit Diagnoses Diagnosis Cellulitis of right foot Cellulitis and abscess of foot, except toes Encounter for long-term (current) use of antibiotics Urinary tract infection, site not specified documented in this encounter Care Teams Bottle Caser Relationship Specialty Start Date End Date Coco Leos PA-C [address] [place] [address] PCP - General Physician Website Developer 10/25/17 11/24/18 documented as of this encounter
--- OUTSIDE RECORDS SUMMARY | 2024-11-23 00:32 | XMS_ITS | Encounter Summary ---
Author Organization [employer] Address [address] [place] [address] Care Team Providers Care Polisher Brass Name Role Phone Kiley Todd MD Primary Care Provider [phone]- [phone] Reason for Referral * Diagnostic Radiology (Routine) - Closed Specialty Diagnoses / Procedures Referred By Celine almaguer Referred To Contact Diagnoses Left shoulder pain Decreased range of motion (ROM) of shoulder Procedures [facility] Kiley Todd MD [address] [place] [address] Phone: tel: fax: Referral ID Status Reason Start Date Expiration Date Visits Re quested Visits Authorized [id number] Closed 06/23/2017 06/23/2018 1 1 Reason for Visit * Diagnostic Radiology (Routine) - Closed Specialty Diagnoses / Procedures Referred By Celine almaguer Referred To Contact Diagnoses Left shoulder pain Decreased range of motion (ROM) of shoulder Procedures [facility] Kiley Todd MD [address] [place] [address] Phone: tel: fax: Referral ID Status Reason Start Date Expiration Date Visits Re quested Visits Authorized [id number] Closed 06/23/2017 06/23/2018 1 1 Encounter Details Date Type Department Care Team (Latest Contact Info) Description 06/30/2017 2:06 PM CDT - 06/30/2017 3:13 PM CDT Hospital Encounter [facility] [address] [place] [address] Kiley Todd MD [address] [facility] [place] [address] Left shoulder pain; Decreased range of motion (ROM) of shoulder Discharge Disposition: Home - Discharge to Home [...] Procedure Name Priority Date/Time Associated Diagnosis Comments [facility] Routine 06/30/2017 3:19 PM CDT Left shoulder pain Decreased range of motion (ROM) of shoulder documented in this encounter Results * [facility] (06/30/2017 [...] None. TECHNIQUE: This study was performed by speech and language assistant Little Pino under my direct and personal [...] None. TECHNIQUE: This study was performed by speech and language assistant Little Pino under my direct and personal [...] this encounter Visit Diagnoses Diagnosis Left shoulder pain Pain in joint, shoulder region Decreased range of motion (ROM) of shoulder documented in this encounter Administered Medications Inactive Administered Medications - up to 3 most recent administrations Medication Order MAR Action Action Date Dose Rate Site iopamidol (ISOVUE-300) 61 % injection 50 mL, Intra-articular, ONCE, On Wed06/30/17 at 1530, For 1 dose Given 06/30/2017 3:30 PM CDT 5 mLs documented in this encounter Care Teams Polisher Brass Relationship Specialty Start Date End Date Kiley Todd MD [address] [place] [address] PCP - General Occupational Medicine 05/19/17 08/03/17 documented as of this encounter
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
--- OUTSIDE RECORDS SUMMARY | 2024-11-23 00:32 | XMS_ITS | Encounter Summary ---
Author Organization [employer] Address [address] [place] [address] Care Team Providers Care Rotoformer Backtender Name Role Phone Kiley Todd MD Primary Care Provider +1- [phone] Encounter Details Date Type Department Care Team (Latest Contact Info) Description 07/08/2017 9:00 AM CDT - 07/08/2017 11:59 PM CDT Hospital Encounter [facility] [address] [place] [address] Discharge Disposition: Home - Discharge to Home or Self Care Social History Tobacco Use Types Packs/Day Years Used Date Smoking Tobacco: Never Assessed Sex and Gender Information Value Date Recorded Sex Assigned at Not on file Legal Sex Male 10:58 AM CDT Gender Identity Not on file Sexual Orientation Not on file documented as of this encounter Nursing Notes * Sachi Mckeon, PT - 07/08/2017 9:45 AM CDT 07/08/17 0904 General OP therapy treatment number 8 MM Referring Provider [employer] Insurance/Authorization PN 02/22 Onset Date 04/16/17 Start of Care Date 06/16/17 Primary diagnosis LBP with radiation and R TP fractures L1-3 Subjective Patient Statement Pt states today is a bad day. Got his TENS unit a few days ago and wants to know how to use it. Patient Pain Currently in Pain Yes Pain Assessment Pain Score 7 Modalities Modalities used Electrical Stimulation - TENS Electrical stimulation TENS Burst;2 leads (preferred burst and modulation) Electrical stimulation TENS location lumbar Electrical stimulation TENS time 25 minutes Skilled Interventions Verbal instructions provided Pt educated in TENS uses and contraindications/precautions, managing equipment including various settings, proper electrode placement, recommended duration Other skilled interventions HEP: glute sets 2x10x5 ; hip add luly 2x10x5 ; seated HS stretch/sciatic nerve glide 2 x 20 pumps; LTR x 10 hold 3 sec; bridging x 10 hold 3 sec; PPT with marching 2x10x5 ; all 2-3x/day Assessment/Plan Clinical Impression Pt instructed in use of TENS and was able to teach back proper electrode placement, precautions/contraindications, and management of TENS unit at end of session. Pt reports good pain relief with TENS unit applied to lumbar area. Planned treatment intervention/HEP Consider hip abd SLR or total gym as pain allows. May consider RDL progression in future sessions. Manual/modalities PRN. TENS training as pt brings in his own unitafter it arrives. Finalize HEP in next 1-2 weeks. Patient Response to Intervention Good Safety Concerns L CAROLANN approx 2 years ago, L elbow ORIF, R wrist ORIF, B RC repairs Sachi Mckeon PT documented in this encounter Plan of Treatment Not on file documented as of this encounter Visit Diagnoses Not on filedocumented in this encounter Care Teams Rotoformer Backtender Relationship Specialty Start Date End Date Kiley Todd MD [address] [place] [address] PCP - General Occupational Medicine 05/19/17 08/03/17 documented as of this encounter
--- OUTSIDE RECORDS SUMMARY | 2024-11-23 00:32 | XMS_ITS | Encounter Summary ---
Author Organization [employer] [facility] [facility] Address [address] [place] [address] Care Team Providers Care Nibbler Operator Name Role Phone Kiley Todd MD Primary Care Provider +1- [phone] Reason for Referral * MRI/CAT Scan (Routine) - Closed Specialty Diagnoses / Procedures Referred By Contac t Referred To Contact Radiology Diagnoses Fall Confusion Weakness Balance problems Procedures MRI BRAIN W WO CONTRAST Kiley Todd MD [address] [place] [address] Phone: tel: fax: Referral ID Status Reason Start Date Expiration Date Visits Re quested Visits Authorized [id number] Closed 06/10/2017 06/10/2018 1 1 Encounter Details Date Type Department Care Team (Late st Contact Info) Description 06/10/2017 Transcribe Orders [facility] [address] [place], [place] [id number] Kiley Todd MD [address] [place] [address] Fall (Primary Dx); Confusion; Weakness; Balance problems Social History Tobacco Use Types Packs/Day Years Used Date Smoking Tobacco: Never Assessed Sex and Gender Information Value Date Recorded Sex Assigned at Not on file Legal Sex Male 10:58 AM CDT Gender Identity Not on file Sexual Orientation Not on file documented as of this encounter Plan of Treatment Not on file documented as of this encounter Visit Diagnoses Diagnosis Fall- Primary Unspecified fall Confusion Unspecified psychosis Weakness Other malaise and fatigue Balance problems Other symptoms involving nervous and musculoskeletal systems documented in this encounter Care Teams Nibbler Operator Relationship Specialty Start Date End Date Kiley Todd MD [address] [place] [address] PCP - General Occupational Medicine 05/19/17 08/03/17 documented as of this encounter
--- OUTSIDE RECORDS SUMMARY | 2024-11-23 00:32 | XMS_ITS | Encounter Summary ---
Author Organization [employer] Address [address] [place] [address] Care Team Providers Care Emergency Operator Name Role Phone Patient, None Per Primary Care Provider Unavaila ble Encounter Details Date Type Department Care Team (Latest Contact Info) Description 08/12/2017 9:54 AM CDT - 08/12/2017 11:59 PM CDT Hospital Encounter [facility] [address] [place] [address] Enrrique Bragg, PT [address] [place] [address] Discharge Disposition: Home - Discharge to Home [...] Progress Notes * Enrrique Bragg, PT - 09/06/2017 3:14 PM CDT PHYSICAL THERAPY DISCHARGE SUMMARY Name: Edilberto Hawley : 1955 Referring Provider: Kiley Todd MD [address] [place] [address] Onset date: 04/16/17 Start of Care: 08/06/17 Service Dates this time Period: 3 visits from 08/06-08/12/17 Summary of Treatment: therapeutic exercise, manual therapy, pt education, HEP Following patient's last attended appointment, shown below; patient did not return for further visits. Spoke with Dr. Todd who recommended hold PT as pt was to undergo additional evaluation and referral. 08/12/17 1036 General OP therapy treatment number 3 NW Referring Provider Peyton Insurance/Authorization PN 01/22 Onset Date 04/16/17 Start of Care Date 08/06/17 Primary diagnosis neck pain, limited ROM and COYNE Physician Follow up dates 08/17/17 Subjective Patient Statement Pt reports he installed a ceiling fan this week and had tremenous SH pain B, L>R. Then he fell while turning to do that. Also states he has been having night terrors with recent medication change, thinks it may be baclofen. Denies suicidal ideations. Neck is sore today, 'maybe from falling this week.' Patient Pain Currently in Pain Yes Pain Assessment Pain Score 4 Soft Tissue treatment Other soft tissue treatment STM/MFR/TPR B cervical and upper thoracic paraspinals, L UT, B SCM, c/oL supra/retrorbital COYNE with L SCM TPR; subocc. release 3x45 Spinal Mobilization Treatment Segmental Mobilization grade II/III PA mobs B TP C2-6 Traction manual cervical traction 2 x 30 Therapeutic exercise Sitting attempted SCM stretch 2x20 B, pt unable to complete with appropriate stretch response, c/opain in B scapulae Skilled Interventions Verbal instructions provided Continue HEP to maintain cervical mobility. Towel roll subocc release at home PRN. Other skilled interventions HEP (2x/day): supine chin tucks 2x10x5 ; UT stretch 3x30 B; levator scap stretch 3x30 B Assessment/Plan Clinical Impression Neck pain and joint mobility slowly improving thus far. Pt states his COYNE improved post-treatment, however pt denied having COYNE at beginning of session. Planned treatment intervention/HEP Consider scap add or gentle tband rows and/or thoracic towel stretch pending L SH discomfort. Appreciate any work well recommendations. Patient Response to Intervention Good Safety Concerns L CAROLANN, hx B RTC repair, current L RTC tear Have no current objective data available and cannot comment on status of goals as patient has not returned for further visits. Will d/c from PT at this time. Thank you for this referral. Please contact [facility] with any questions or concerns. Enrrique Bragg, PT, DPT 09/06/2017 3:[address] [facility] [address] [place] [address] documented in this encounter Nursing Notes * Enrrique Bragg, PT - 08/12/2017 2:23 PM CDT 08/12/17 1036 General OP therapy treatment number 3 NW Referring Provider [employer] Insurance/Authorization PN 01/22 Onset Date 04/16/17 Start of Care Date 08/06/17 Primary diagnosis neck pain, limited ROM and COYNE Physician Follow up dates 08/17/17 Subjective Patient Statement Pt reports he installed a ceiling fan this week and had tremenous SH pain B, L>R. Then he fell while turning to do that. Also states he has been having night terrors with recent medication change, thinks it may be baclofen. Denies suicidal ideations. Neck is sore today, 'maybe from falling this week.' Patient Pain Currently in Pain Yes Pain Assessment Pain Score 4 Soft Tissue treatment Other soft tissue treatment STM/MFR/TPR B cervical and upper thoracic paraspinals, L UT, B SCM, c/oL supra/retrorbital COYNE with L SCM TPR; subocc. release 3x45 Spinal Mobilization Treatment Segmental Mobilization grade II/III PA mobs B TP C2-6 Traction manual cervical traction 2 x 30 Therapeutic exercise Sitting attempted SCM stretch 2x20 B, pt unable to complete with appropriate stretch response, c/opain in B scapulae Skilled Interventions Verbal instructions provided Continue HEP to maintain cervical mobility. Towel roll subocc release at home PRN. Other skilled interventions HEP (2x/day): supine chin tucks 2x10x5 ; UT stretch 3x30 B; levator scap stretch 3x30 B Assessment/Plan Clinical Impression Neck pain and joint mobility slowly improving thus far. Pt states his COYNE improved post-treatment, however pt denied having COYNE at beginning of session. Planned treatment intervention/HEP Consider scap add or gentle tband rows and/or thoracic towel stretch pending L SH discomfort. Appreciate any work well recommendations. Patient Response to Intervention Good Safety Concerns L CAROLANN, hx B RTC repair, current L RTC tear documented in this encounter Plan of Treatment Not on file documented as of this encounter Visit Diagnoses Not on filedocumented in this encounter Care Teams Emergency Operator Relationship Specialty Start Date End Date Patient, None Per PCP - General 08/04/17 10/24/17 documented as of this encounter
--- OUTSIDE RECORDS SUMMARY | 2024-11-23 00:32 | XMS_ITS | Encounter Summary ---
Author Organization [employer] Address [address] [place] [address] Care Team Providers Care Sensitometrist Name Role Phone Coco Leos PA-C Primary Care Provider [phone] Encounter Details Date Type Department Care Team (Latest Contact Info) Description 05/27/2018 9:45 AM CDT - 05/27/2018 11:59 PM CDT Hospital Encounter [facility] [address] [place] [address] Cellulitis of right foot; Encounter for long-term (current) use of antibiotics; Urinary tract infection, site not specified; Fitting and adjustment of vascular catheter Discharge Disposition: Home - Discharge to Home [...] Date/Time Associated Diagnosis Comments SEDIMENTATION RATE Routine 05/27/2018 9: 45 AM CDT Cellulitis of right foot Encounter for long-term (current) use of antibiotics Urinary tract infection, site not specified Fitting and adjustment of vascular catheter CBC AND DIFFERENTIAL Routine 05/27/2018 9:45 AM CDT Cellulitis of right foot Encounter for long-term (current) use of antibiotics Urinary tract infection, site not specified Fitting and adjustment of vascular catheter C-REACTIVE PROTEIN Routine 05/27/2018 9: 45 AM CDT Cellulitis of right foot Encounter for long-term (current) use of antibiotics Urinary tract infection, site not specified Fitting and adjustment of vascular catheter COMPREHENSIVE METABOLIC PANEL Routine 05/27/2018 9:45 AM CDT Cellulitis of right foot Encounter for long-term (current) use of antibiotics Urinary tract infection, site not specified Fitting and adjustment of vascular catheter documented in this encounter Results * (ABNORMAL) Sedimentation rate (05/27/2018 9:45 AM CDT) Sedimentation Rate 103(H) 0 - 20 mm/hr [facility] Blood specimen (specimen) 05/27/2018 9:45 AM CDT 05/27/2018 11:02 AM CDT us Lacey Perdue MD LAB BLOOD ORDERABLES Final R esult [facility] [address] [place], [place] [phone] * (ABNORMAL) C-reactive protein (05/27/2018 9:45 AM CDT) CRP 8.70(H) 0.2 - 0.9 mg/dL [facility] Blood specimen (specimen) 05/27/2018 9:45 AM CDT 05/27/2018 11:02 AM CDT us Lacey Perdue MD LAB BLOOD ORDERABLES Final R esult [facility] [address] [place], [place] [phone] * (ABNORMAL) Comprehensive metabolic panel (05/27/2018 9:45 AM CDT) Sodium 134(L) 136 - 145 mmol/L [facility] Potassium 4.4 3.5 - 5.1 mmol/L [facility] Chloride 99 98 - 107 mmol/L [email or web address] CO2 35(H) 21 - 32 mmol/L [email or web address] Glucose 113(H) 74 - 106 mg/dL [email or web address] BUN 13 7.0 - 18.0 mg/dL [email or web address] Creatinine 1.05 0.70 - 1.30 mg/dL [email or web address] Calcium 9.0 8.5 - 10.1 mg/dL [email or web address] Total Protein 6.5 6.4 - 8.2 g/dL [email or web address] Albumin 2.9(L) 3.4 - 5.0 g/dL [email or web address] Bilirubin Total 0.3 0.2 - 1.0 mg/dL [email or web address] Alkaline Phosphatase 105 56 - 119 U/L [facility] AST 20 15 - 37 U/L [facility] ALT 31 12 - 78 U/L [facility] Creatinine Based eGFR >60 [facility] Comment: GFR REFERENCE RANGE: >60 mL/min/1.73m2 -- An eGFR of > than, or = to 60, may indicate normal renal function or mildly decreased GFR. EGFR /Hungarian >60 [email or web address] Comment: -- An eGFR of > than, or = to 60, may indicate normal renal function or mildly decreased GFR. Blood specimen (specimen) 05/27/2018 9:45 AM CDT 05/27/2018 11:02 AM CDT us Lacey Perdue MD LAB BLOOD ORDERABLES Final R esult [facility] [address] [place] [address] * (ABNORMAL) CBC and differential (05/27/2018 9:45 AM CDT) WBC 10.53 4.00 - 11.00 th/mm3 [facility] RBC 4.08(L) 4.50 - 6.50 mill/mm3 [email or web address] HGB 12.6(L) 13.8 - 18.0 g/dL [facility] HCT 38.5(L) 40.0 - 54.0 % [email or web address] MCV 94.4 76 - 99 fL [facility] MCH 30.9 27.0 - 32.0 pg [facility] MCHC 32.7 30.0 - 35.0 g/dL [email or web address] Platelets 386 135 - 470 th/mm3 [facility] RDW-CV 40.6 34.9 - 51.3 fL [facility] MPV 9.6 8.0 - 12.5 fL [facility] Differential Type AUTOMATED DIFFERENTIAL [facility] Neutrophil % 65.7 45.0 - 75.0 % [email or web address] Lymphocytes % 21.4 20.0 - 45.0 % [facility] Monocyte % 9.4 0.0 - 10.0 % [facility] Eosinophils Relative % 2.3 0.0 - 5.0 % [facility] Basophils % 0.3 0.0 - 2.0 % [facility] Immature Granulocytes% 0.9 0.0 - 1.6 % [facility] Neutrophils Absolute 6.93 2.00 - 7.900 th/mm3 [facility] Lymphocytes Absolute 2.25 1.00 - 4.00 th/mm3 [facility] Monos Absolute 0.99(H) 0.0 - 0.80 th/mm3 [facility] Eosinophils Absolute Count 0.24 0.00 - 0.40 th/mm3 [facility] Basophils Absolute 0.03 0.00 - 0.10 th/mm3 [facility] Immature Granulocytes Absolute 0.09 0.0 - 0.20 th/mm3 [facility] Blood specimen (specimen) BLOOD SPECIMEN / Unknown 05/27/2018 9:45 AM CDT 05/27/2018 11:02 AM CDT us Lacey Perdue MD LAB BLOOD ORDERABLES Final R esult [facility] [address] [place], [place] [phone] documented in this encounter Visit Diagnoses Diagnosis Cellulitis of right foot Cellulitis and abscess of foot, except toes Encounter for long-term (current) use of antibiotics Urinary tract infection, site not specified Fitting and adjustment of vascular catheter documented in this encounter Care Teams Sensitometrist Relationship Specialty Start Date End Date Coco Leos PA-C [address] [place] [address] PCP - General Physician Human Resources Talent Manager 10/25/17 11/24/18 documented as of this encounter
--- OUTSIDE RECORDS SUMMARY | 2024-11-23 00:32 | XMS_ITS | Encounter Summary ---
Author Organization [employer] Address [address] [place] [address] Care Team Providers Care Director Of Solutions Architecture Name Role Phone Kiley Todd MD Primary Care Provider [phone] Reason for Referral * MRI/CAT Scan (Routine) - Closed Specialty Diagnoses / Procedures Referred By Celine almaguer Referred To Contact Radiology Diagnoses Left shoulder pain Decreased range of motion (ROM) of shoulder Procedures MRI UPPER EXTREMITY JOINT W CONTRAST Kiley Todd MD [address] [place] [address] Phone: tel: fax: Referral ID Status Reason Start Date Expiration Date Visits Re quested Visits Authorized [id number] Closed 06/23/2017 06/23/2018 1 1 Reason for Visit * MRI/CAT Scan (Routine) - Closed Specialty Diagnoses / Procedures Referred By Celine almaguer Referred To Contact Radiology Diagnoses Left shoulder pain Decreased range of motion (ROM) of shoulder Procedures MRI UPPER EXTREMITY JOINT W CONTRAST Kiley Todd MD [address] [place] [address] Phone: tel: fax: Referral ID Status Reason Start Date Expiration Date Visits Re quested Visits Authorized [id number] Closed 06/23/2017 06/23/2018 1 1 Encounter Details Date Type Department Care Team (Latest Contact Info) Description 06/30/2017 3:14 PM CDT - 06/30/2017 11:59 PM CDT Hospital Encounter [facility] [address] [place] [address] Kiley Todd MD [address] [place] [address] Left shoulder pain; Decreased range of motion [...] Name Priority Date/Time Associated Diagnosis Comments MRI UPPER EXTREMITY JOINT W CONTRAST Routine 06/30/2017 3:54 PM CDT Left shoulder pain Decreased range of motion (ROM) of shoulder documented in this encounter Results * MRI UPPER EXTREMITY [...] MD IMG MRI ORDERABLES Final R esult documented in this encounter Visit Diagnoses Diagnosis Left shoulder pain Pain in joint, shoulder region Decreased range of motion (ROM) of shoulder documented in this encounter Administered Medications Inactive Administered Medications - up to 3 most recent administrations Medication Order MAR Action Action Date Dose Rate Site gadopentetate dimeglumine (MAGNEVIST) injection 5 mL, Intravenous, ONCE, On Wed06/30/17 at 1600, For 1 dose Given 06/30/2017 4:00 PM CDT 0.1 mLs documented in this encounter Care Teams Director Of Solutions Architecture Relationship Specialty Start Date End Date Kiley Todd MD [address] [place] [address] PCP - General Occupational Medicine 05/19/17 08/03/17 documented as of this encounter
--- OUTSIDE RECORDS SUMMARY | 2024-11-23 00:32 | XMS_ITS | Encounter Summary ---
Author Organization [employer] Address [address] [place] [address] Care Team Providers Care Skating Rink Ice Maker Name Role Phone Patient, None Per Primary Care Provider Unavaila ble Encounter Details Date Type Department Care Team (Latest Contact Info) Description 08/12/2017 9:00 AM CDT - 08/12/2017 9:53 AM CDT Hospital Encounter [facility] [address] [place], [place] [id number] Verónica Dominguez, PT [address] [place], [place] [id number] Discharge Disposition: Home - Discharge to Home [...] Progress Notes * Verónica Dominguez, PT - 08/12/2017 3:13 PM CDT [employer] Progress Note for Outpatient Physical Therapy Patient Name: Edilberto Hawley : 1955 Patient has no past medical history on file. Primary diagnosis : Dizziness, Imbalance Onset Date: 04/16/2017 Start of Care Date: 05/25/2017 Certification Start Date: -- to Certification Date End: -- OP therapy treatment number: 8 AY Referring Provider: Kiley Todd MD Summary of Treatment: Patient was seen for 8 visits consisting of patient/caregiver education, functional training, range of motion, strengthening, balance activities, modalities, aquatic therapy, canal repositioning, and/or habituation/adaptation exercises. 08/12/17 0914 General OP therapy treatment number [address] Todd Insurance Onset Date 04/16/17 Start of Care Date 05/25/17 Therapy treatment diagnosis post concussion syndrome Medical/Medication Changes No Subjective Patient Statement Was on a step ladder and got dizzy and fell off of it. Knows he shouldn't have been on a ladder. Also was trying to lift his arms onver his head to put up a ceiling fan and couldnt get either arm to do it. Feels like his balance is getting a little better but has so many things wrong its hard to tell. Feels more off balance today since his fall. Functional Outcome Measurement RPQ-3: 7 RPQ-13: 36 DHI: 70 ABC: 56% Vestibular Evaluation DHI score 70, initial score of 50 (higher score means higher disability related to dizziness) Patient Pain Currently in Pain Yes Pain Assessment Pain Score 7 Pain Location Shoulder;Neck;Back;Thigh (left thigh, both shoulders) Vital Signs Heart Rate 55 Blood Pressure 119/76 Dynamic Balance Tests/Training Tandem walk forward 1 step Gait Speed CGS: 1.03 Inman Balance Test 40/56, no change from previous testing 1 month ago, below 48 at risk for falls Functional Gait Assessment compared to intially Gait Gait Assistance Supervision/Setup Assistive Device None Deviation (antalgic, Left knee buckling at times) Gait Pattern Reciprocal Assessment/Plan Clinical Impression Continues to be at risk for falls based on functional tests and has had two recent falls though subjectively reports improvements in balance. More pain in left leg today which impaired performance on balance testing. Score on dizziness handicap inventory has actually increased from 50 initialy to 70 which represents a greater impairment. Activities based confidence scale has also worsened with initial score being 63% and current score being 56% (lower score represents greater risk for fall). Appropriate for follow up with physician to determine further needs of care. Planned treatment intervention/HEP will continue based on physician reccomendations Frequency/Duration up to 2x/week dependent on physician reccomendations Safety Concerns fall risk Skill of a therapist is required Yes Goal 1: Client to demonstrate improved balance [...] of dizziness. Goal 5 progress: Not Met Thank you for this referral. Please feel free to contact me with any questions or concerns. Verónica Dominguez, MAURICIO 08/12/2017 3:14 [place] [address] Ph. [phone] Fax. [phone] documented in this encounter Plan of Treatment Not on file documented as of this encounter Visit Diagnoses Not on filedocumented in this encounter Care Teams Skating Rink Ice Maker Relationship Specialty Start Date End Date Patient, None Per PCP - General 08/04/17 10/24/17 documented as of this encounter
--- OUTSIDE RECORDS SUMMARY | 2024-11-23 00:32 | XMS_ITS | Encounter Summary ---
Author Organization [employer] Address [address] [place] [address] Care Team Providers Care Pharmacy Teacher Name Role Phone Patient, None Per Primary Care Provider Unavaila ble Encounter Details Date Type Department Care Team (Latest Contact Info) Description 08/06/2017 9:38 AM CDT - 08/06/2017 10:39 AM CDT Hospital Encounter [facility] [address] [place] [address] Eden Anthony, BUTTON ATTACHING MACHINE OPERATOR [address] [place], [place] [id number] Discharge Disposition: Home - Discharge to Home or Self Care Social History Tobacco Use Types Packs/Day Years Used Date Smoking Tobacco: Never Assessed Sex and Gender Information Value Date Recorded Sex Assigned at Not on file Legal Sex Male 10:58 AM CDT Gender Identity Not on file Sexual Orientation Not on file documented as of this encounter Nursing Notes * Eden Anthony, BUTTON ATTACHING MACHINE OPERATOR - 08/06/2017 11:12 AM CDT 08/06/17 0950 General OP therapy treatment number [id number] patient identifiers Yes Reported Falls no HEP compliant Medical/Medication Changes No Subjective Patient Statement States feeling really sore today. Patient Pain Currently in Pain Yes Pain Assessment Pain Score 7 Pain Location Shoulder;Back Vital Signs Heart Rate 72 Blood Pressure 106/72 Transfer/Mobility Training Sit to Stand Independent Stand to Sit Independent Gait Gait Assistance Supervision/Setup Assistive Device None Deviation L Decreased stance time Complex/Challenged Gait Gt on level surfaces performed head turns in all directions LCA. Worked on quick start/stops on command. Forward/backwards gait on command. Forward marching. Provided pt LCA for all. Additional Gait Comment Looks stiff with ambulation. Cues given to swing arms and relax shoulders during gait. Balance Other Stood on half foam roll with LCA. Stood on black high density foam with feet apart and feet touching. Added in head turns in all directions to challenge balance more. Performed with LCA. Standard Balance Testing Adaptation test completed. Demonstrated improvements with this test since last tested. INstructed pt to kick in and use his core and gluteal muscle groups to assist with maintaining his balance. Therapeutic exercise Cardio exercises Nu-Step Nu-Step NS WL4 for B UE and LE strengthening and ROM. Instructed pt to maintain steps per minute above 60. required assistance for proper set up. Performed x 5 mintues. Mat exercises Standing Standing Side stepping left/right using the yellow resist band. LE strengthening hip abd/add, hip ext, and HS curls x 10 reps each with B UE support and cues given to improve his technique. Standing squats x 10 reps. Assessment/Plan Clinical Impression Instructed pt to get out and walk more at home with family member or friend. Edilberto reports pain decreased by end of his PT session to a 5.5 out of 10. Focused more on egagning his gluteals and abdominal muscles when working on balance and strengthening exercises. Planned treatment intervention/HEP Static and dynamic balance activities. Patient Response to Intervention Good Frequency/Duration 2x per wk Safety Concerns fall risk Skill of a therapist is required Yes Supervising Therapist Verónica Dominguez PT Eden Anthony PTA documented in this encounter Plan of Treatment Not on file documented as of this encounter Visit Diagnoses Not on filedocumented in this encounter Care Teams Pharmacy Teacher Relationship Specialty Start Date End Date Patient, None Per PCP - General 08/04/17 10/24/17 documented as of this encounter
--- OUTSIDE RECORDS SUMMARY | 2024-11-23 00:32 | XMS_ITS | Encounter Summary ---
Author Organization [employer] Address [address] [place] [address] Care Team Providers Care Small Business Banking Officer Name Role Phone Kiley Todd MD Primary Care Provider [phone]- [phone] Encounter Details Date Type Department Care Team (Latest Contact Info) Description 06/08/2017 7:59 AM CDT - 06/08/2017 11:59 PM CDT Hospital Encounter [facility] [address] [place], [place] [phone] Verónica Dominguez, PT [address] [place], [place] [phone] Discharge Disposition: Home - Discharge to Home [...] Progress Notes * Verónica Dominguez, PT - 06/08/2017 10:19 AM CDT [place] Progress Note for Outpatient Physical Therapy Patient Name: Edilberto Hawley : 1955 Patient has no past medical history on file. Primary diagnosis : (P) Dizziness, Imbalance Onset Date: (P) 04/16/2017 Start of Care Date: (P) 05/25/2017 Certification Start Date: -- to Certification Date End: -- OP therapy treatment number: 3 AY Referring Provider: Kiley Todd MD Summary of Treatment: Patient was seen for 3 visits consisting of patient/caregiver education, functional training, range of motion, strengthening, balance activities, modalities, aquatic therapy, canal repositioning, and/or habituation/adaptation exercises. 06/08/17 0820 General OP therapy treatment number [address] Todd Insurance WC 2 patient identifiers Yes Onset Date 04/16/17 Start of Care Date 05/25/17 Primary diagnosis Dizziness, Imbalance Therapy treatment diagnosis Impaired gait and balance Subjective Patient Statement Feels like his short term memory is bad. Feels disoriented, not normal. Not dizzy. Apologizes for missing appointment last week. Headaches are getting worse but hasnt hadthe dizzy spells as frequently as he was. Headache feels like a john in his head, totally differentfrom his previous headaches that started in his head and moved up to his eye. Still staggering withhis balance but not falling. Back pain is a bigger problem than his balance. Balance concerns him with needing to climb up and down ladders and such at work. See ortho tomorrow. Patient Pain Currently in Pain Yes Pain Assessment (0-10, FACES, Verbal Descriptive) 0-10 (Numeric Rating Scale) Pain Assessment Pain Score 8 Pain Location Back (kidney level on right, below belt on left) Pain Descriptors Shooting;Sharp Vital Signs Heart Rate 63 Blood Pressure 122/71 Dynamic Balance Tests/Training Dynamic Balance TUG - Timed Up & Go;Inman Balance Test Dynamic Gait Index 16/24 compared to 21/24 on 05/25/17 TUG - Timed up & go 15.13 , 15.7 , above 14 seconds is at risk for falls Gait Speed CGS: 1.09 m/s compared to 1.01 m/s on 05/25/17 Inman Balance Test 40/56 (below 48/56 is at risk for falls) Gait Gait Assistance Independent Complex/Challenged Gait gait with head turns and tips, changes in speed, stepping around and over obstacles with SBA, 180 degree turn with mulitple stpes to catch balance but no external support needed Assessment/Plan Clinical Impression Still very impaired on mCTSIB, no significant change in composite score but actually was worse on firm EC (initially 8% below normal, today 214% below chin) and firm EC (initially 144% below normal and today 307% below normal). DGI declined today witha scaore of 16/24 as compared to initial score of 21/24. Inman is below cut off for falls at 40/56 (48/56 is cut off for falls).Pt denies recent falls and subjectively reports improvement in balance despite outcomes of functional testing. Still having significant back pain and headache. At this point not showing imporvement with PT but has onely been seen 3 times total as patient no showed to both appointments last week. Reporting diffiuclty with short term memory and attributes missed appointments to this. Planned treatment intervention/HEP static and dynamic balance, restest SOT and adaptation test, complex gait Frequency/Duration 2x/week x 2weeks Safety Concerns fall risk Skill of a therapist is required Yes Short Term Goals Goal 1 progress Not Met Goal 2 progress Not Met Goal 3 progress Met Goal 4 progress Not Met Goal 5 progress Not Met Modified CTSIB Evaluates the ability of an individual to remain stable and control their center of gravity (COG) position under different surface and visual (environmental) conditions. _The following performance attributes were in abnormal range: (1) Stability with eyes open on a firm surface. 214%below norm score (2) Stability with eyes closed on a firm surface. 307% below norm score (3) Stability with eyes open on a unstable (foam) surface. 146% below norm score (4) Stability with eyes closed on an unstable (foam) surface. 95% below norm score (5) Comp score 161% below aged matched norms. (6) COG Alignment scattered 36% LOS (limits of stability) Goal 1: Client to demonstrate improved balance [...] of dizziness. Goal 5 progress: Not Met PLAN: Continue to see patient 2x/week to further improve balance, strength, and safety with gait, working toward goals not yet met above. Thank you for this referral. Please feel free to contact me with any questions or concerns. Verónica Dominguez, PT 06/08/2017 10:20 AM [facility] [address] [place] [address] Ph. [phone] Fax. [phone] documented in this encounter Plan of Treatment Not on file documented as of this encounter Visit Diagnoses Not on filedocumented in this encounter Care Teams Small Business Banking Officer Relationship Specialty Start Date End Date Kiley Todd MD [address] [place] [address] PCP - General Occupational Medicine 05/19/17 08/03/17 documented as of this encounter
--- OUTSIDE RECORDS SUMMARY | 2024-11-23 00:32 | XMS_ITS | Encounter Summary ---
Author Organization [employer] Address [address] [place] [address] Care Team Providers Care Demand Equipment Repairer Name Role Phone Kiley Todd MD Primary Care Provider [phone]- [phone] Encounter Details Date Type Department Care Team (Latest Contact Info) Description 08/03/2017 12:21 PM CDT - 08/03/2017 11:59 PM CDT Hospital Encounter [facility] [address] [place], [place] [phone] Verónica Dominguez, PT [address] [place], [place] [phone] Discharge Disposition: Home - Discharge to Home [...] Nursing Notes * Verónica Dominguez, PT - 08/03/2017 2:12 PM CDT 08/03/17 1259 General OP therapy treatment number [address] Todd Insurance WC Reported Falls no Medical/Medication Changes Yes - see Subjective Subjective Patient Statement Doing about the same, just was at work well and thy put him off work for 2 more weeks. 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 They arent real happy at work . Pt reports his work wants him to move his care to [place]. Headache has been better since he hasnt been doing clerical work or watching TV, were 08/24. Also just broke his glasses. Was started on a new med for his headaches, its a BP med and seems to be helping a bit. Patient Pain Currently in Pain Yes Pain Assessment Pain Score 6 Pain Location Neck;Shoulder;Back Pain Intervention(s) TENS (helps with back pain but not headache) Vital Signs Heart Rate 68 Blood Pressure 124/77 Transfer/Mobility Training Sit to Stand Independent Stand to Sit Independent Gait Gait Assistance Supervision/Setup Assistive Device None Deviation L Decreased stance time;Wide base of support (antalgic) Complex/Challenged Gait gait with head turns and tips, changes in speed, eyes closed and backwards with SBA to LCA, tandem gait-reaching out for bed and floor, min to modA Gait Assistance - Stairs Supervision/Setup Stair Management Technique One rail R;Alternating pattern Assistive Device - Stairs None Number of Stairs 11 Balance Other feet apart EO and EC, romberg EO Dynamic Balance Tests/Training Dynamic Balance Functional Gait Assessment Tandem walk forward 1 prior to need for assist to prevent fall Gait Speed CGS: 0.94 m/s Inman Balance Test 40/56, no change from previous testing 1 month ago, below 48 at risk for falls Functional Gait Assessment Equipment assisted testing and training SOT - Sensory Organization Test Skilled Interventions Other skilled interventions HEP: feet apart EO and EC, romberg EO Assessment/Plan Clinical Impression Se returns to therapy otday with c/o headache and imbalance though reports no falls since last visit June 28. Score on SOT has actually declined since initial testing and today is 56% below normal; no change noted on Inman Balance Scale. Will be working with [facility] on headache so we will focus on balance. Jovanni benefit from PT to decrease risk for falls and maximizereturn to prior level of function. Planned treatment intervention/HEP adaptation test, static and dynamic balance, complex gait Patient Response to Intervention Good Frequency/Duration 2x/week x 2 weeks Safety Concerns fall risk Skill of a therapist is required Yes Sensory Organization Test (SOT) The SOT protocol [...] conditions is below normative performance range at 30 (normative response 70). 6. SOT condition(s): 1,2,3,4,5,6. Fall(s) on: 3,4,5,6. Verónica Dominguez PT, DPT documented in this encounter Plan of Treatment Not on file documented as of this encounter Visit Diagnoses Not on filedocumented in this encounter Care Teams Demand Equipment Repairer Relationship Specialty Start Date End Date Kiley Todd MD [address] [place] [address] PCP - General Occupational Medicine 05/19/17 08/03/17 documented as of this encounter
--- OUTSIDE RECORDS SUMMARY | 2024-11-23 00:32 | XMS_ITS | Encounter Summary ---
Author Organization [employer] Address [address] [place] [address] Care Team Providers Care Garbage Pick Up Man Name Role Phone Kiley Todd MD Primary Care Provider +1- [phone] Encounter Details Date Type Department Care Team (Latest Contact Info) Description 06/21/2017 1:45 PM CDT - 06/21/2017 11:59 PM CDT Hospital Encounter [facility] [address] [place] [phone] Kaye Knight, SUPERVISOR PAINTING [address] [place], [place] [phone] Discharge Disposition: Home - Discharge to Home or Self Care Social History Tobacco Use Types Packs/Day Years Used Date Smoking Tobacco: Never Assessed Sex and Gender Information Value Date Recorded Sex Assigned at Not on file Legal Sex Male 10:58 AM CDT Gender Identity Not on file Sexual Orientation Not on file documented as of this encounter Nursing Notes * Kaye Knight, SUPERVISOR PAINTING - 06/21/2017 2:25 PM CDT 06/21/17 1349 General OP therapy treatment number 3 JK Referring Provider [employer] [facility] [employer] Insurance/Authorization PN 01/22 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 He saw the doctor this morning, she wants him to cont with the balance therapy and he's getting an appt to see a neurologist. He can't get rid of the COYNE's, he has one everyday. He has to see the doctor again tomorrow because she was worried about him. Patient Pain Currently in Pain Yes Pain Assessment Pain Score 7 (now but he was in tears earlier) Therapeutic exercise Supine LTR x 10 bilat in pain free motion, bridging x 10, both added to HEP. TrA luly x 10 with cues for breathing and not lifting head. Sitting HS stretch with nerve glide performed bilat even after cues to do one at a time. Modalities Modalities used Electrical Stimulation - IFC Electrical Stimulation IFC - Settings 80-150 Hz Electrical Stimulation IFC - Time/Duration 10' Electrical Stimulation IFC - Electrode Placement B lumbar paraspinals Electrical Stimulation IFC - Intensity Pt's tolerance Thermal Agents Ice Pack Thermal Agents Location lumbar Thermal Agents Time 10' with IFC in supine Skilled Interventions Verbal instructions provided Discussed keeping exs in pain-free range. Other skilled interventions Updated HEP: TrA luly 2x10x5 ; glute sets 2x10x5 ; hip add luly 2x10x5 ; seated HS stretch/sciatic nerve glide 2 x 20 pumps; LTR x 10 hold 3 sec; bridging x 10 hold 3 sec;all 2-3x/day Assessment/Plan Clinical Impression Cont to report high pain levels in low back and COYNE's Safety Concerns L CAROLANN approx 2 years ago, L elbow ORIF, R wrist ORIF, B RC repairs Supervising Therapist Enrrique Bragg, PT documented in this encounter Plan of Treatment Not on file documented as of this encounter Visit Diagnoses Not on filedocumented in this encounter Care Teams Garbage Pick Up Man Relationship Specialty Start Date End Date Kiley Todd MD [address] [facility] [place] [address] PCP - General Occupational Medicine 05/19/17 08/03/17 documented as of this encounter
--- OUTSIDE RECORDS SUMMARY | 2024-11-23 00:32 | XMS_ITS | Encounter Summary ---
Author Organization [employer] Address [address] [place] [address] Care Team Providers Care Ring Rolling Machine Operator Name Role Phone Kiley Todd MD Primary Care Provider +1- [phone] Encounter Details Date Type Department Care Team (Latest Contact Info) Description 07/20/2017 9:03 AM CDT - 07/20/2017 11:59 PM CDT Hospital Encounter [facility] [address] [place] [address] Enrrique Bragg, PT [address] [place], [place] [phone] Discharge Disposition: Home - Discharge to Home [...] Progress Notes * Enrrique Bragg, PT - 07/20/2017 9:45 AM CDT PHYSICAL THERAPY PROGRESS NOTE/DISCHARGE SUMMARY Patient Name: Edilberto Hawley Age: 61 y.o. : 1955 Referring Provider: Kiley Todd MD [address] [place] [address] ADDENDUM 07/26/17: Following last visit, shown below, received report from [facility] to discontinue PT for back pain. Pt will continue PT at [facility] for post-concussion symptoms. Will D/C fromPT at this time. 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 Got some rest over the weekend. Pain down to 5.5/10. Does c/o dizziness over the weekend with LOB and reports fall to floor. Slipped off stool clear to the floor, 'the dizziness must have lasted at least an hour.' Patient Pain Currently in Pain Yes Pain Assessment Pain Score (5.5) Strength Lower Extremity R Hip Flexion 4+/5 R Hip Extension 4/5 R Hip ABduction 4-/5 R Hip ADduction 5/5 L Hip Flexion 4+/5 L Hip Extension 3+/5 L Hip ABduction 4-/5 L Hip ADduction 5/5 Lumbar Spine ROM Lumbar Flexion 0-70 36 cm fingertips to floor, c/o back pain Lumbar Extension 0-45 6 deg, c/o R LBP 7/10 Right Lumbar Lateral 0-45 25% limited, c/o R LBP 6/10 Left Lumbar Lateral 0-45 0% limited Right Lumbar Rotation 0-90 50% limited, c/o LBP 7/10 Left Lumbar Rotation 0-90 25% limited, pain Therapeutic exercise Nu-Step WL 6 x 6 mins, LEs only due to c/o L SH pain Proprioception/balance exercises Total Gym Total Gym L22 DL squats x 20, VCs for TrA luly, no increase in back pain Supine TrA luly with marching x20; bridging with TrA luly x15x5 , no increase in back pain Standing hip abd with TrA luly x10 B, VCs for TrA activation, no increase in LBP; hip ext x 10 B, VCs to avoid lumbar ext and add TrA activation, c/o LBP 6/10 Skilled Interventions Verbal instructions provided Added standing hip abd/ext to HEP and gave printed update. Other skilled interventions Updated HEP: seated HS stretch/sciatic nerve glide 2 x 20 pumps; LTR x 10 hold 3 sec; bridging x 10 hold 3 sec; PPT with marching 2x10x5 ; standing hip abd/ext 2x1-20 eachB; all 2x/day Assessment/Plan Clinical Impression Pt with lowest report of back pain today 5.5/10 in several weeks. Pt appears tiffany moving much more comfortably. Lumbar AROM improving and able to tolerate standing exercises withminimal increase in LBP. Of greatest concern is pt's c/o severe HAs recently with imbalance and falls. Planned treatment intervention/HEP Appreciate work well recommendations. Progress standing activitytolerance. Consider tband for hip abd/ext. Consider guinean ball stabilization exercises. Patient Response to Intervention Fair Safety Concerns [...] L LE radicular symptoms. Goal 3 progress: Met Goal 4: Pt will improve lumbar flexion AROM to <40 cm fingertips to floor to improve efficiency with ADL completion. Goal 4 progress: Met Goal 5: Pt will complete all daily activities and report LBP no greater than 4/10. Goal 5 progress: Progressing Thank you for this referral. Please contact [facility] with any questions or concerns. Enrrique Bragg, PT, DPT 07/20/2017 9:[address] [facility] [address] [place] [address] documented in this encounter Plan of Treatment Not on file documented as of this encounter Visit Diagnoses Not on filedocumented in this encounter Care Teams Ring Rolling Machine Operator Relationship Specialty Start Date End Date Kiley Todd MD [address] [place] [address] PCP - General Occupational Medicine 05/19/17 08/03/17 documented as of this encounter
--- OUTSIDE RECORDS SUMMARY | 2024-11-23 00:32 | XMS_ITS | Encounter Summary ---
Author Organization [employer] Address [address] [place] [address] Care Team Providers Care Building Services Engineer Name Role Phone Stephanie Leos PA-C Primary Care Provider [phone] Reason for Visit * Reason Comments Back Pain-New >28 days Psychiatric Evaluation * Auth/Cert Specialty Diagnoses / Procedures Referred By Celine almaguer Referred To Contact Behavioral Health Diagnoses Suicidal ideation [facility] [address] [place] [address] Phone: tel: Referral ID Status Reason Start Date Expiration Date Visits Re quested Visits Authorized [id number] 10/25/2017 10/25/2018 1 1 Encounter Details Date Type Department Care Team (Latest Contact Info) Description 10/25/2017 8:42 AM AUGER MACHINE OFFBEARER - 10/29/2017 1:12 PM AUGER MACHINE OFFBEARER Hospital Encounter [facility] [address] [place], [place] [id number] Cleve Marroquin, TANK CLEANING SUPERVISOR [address] [place] [phone] Shanta Barbosa MD Depression, unspecified depression type (Primary Dx) Discharge Disposition: Home - Discharge [...] Sign Reading Time Taken Comments Blood Pressure 98/60 10/29/2017 7:40 AM AUGER MACHINE OFFBEARER Pulse 60 10/29/2017 7:40 AM AUGER MACHINE OFFBEARER Temperature 36.5 ??C (97.7 ??F) 10/29/2017 7:40 AM CS T Respiratory Rate 16 10/29/2017 7:40 AM AUGER MACHINE OFFBEARER Oxygen Saturation 97% 10/25/2017 4:05 PM AUGER MACHINE OFFBEARER Inhaled Oxygen Concentration - - Weight 83.2 kg (183 lb 6.8 oz) 10/26/2017 6:05 A M AUGER MACHINE OFFBEARER Height 180.3 cm (5' 11 ) 10/25/2017 1:39 PM AUGER MACHINE OFFBEARER Body Mass Index 25.58 10/25/2017 1:39 PM AUGER MACHINE OFFBEARER documented in this encounter Functional Status * [...] Padilla ARNP documented in this encounter Discharge Summaries * Cleve Marroquin ARNP - 10/29/2017 11:26 AM CST Images from the original note were not included. PSYCHIATRY DISCHARGE SUMMARY Name: Edilberto Hawley Age: 62 y.o. Admit Date: 10/25/2017 Discharge Date: 10/29/2017 Identification: 62-year-old male with chronic bilateral low back pain, with sciatica presence, and rotator cuff injury. Hospital Course: Se Hawley is a 62-year-old male who presented to the ER after he was tearful and making suicidal statements at his doctor's appointment. Patient was experiencing several psychosocial stressorsrelated to his chronic pain and related to work difficulties that were causing him to feel this way. Patient was diagnosed with an acute adjustment disorder with depressed mood. During hospitalization patient noted to be on suboptimal dose of duloxetine and so this was increased to 90 mg daily to target both pain and mood. Therapy was also ordered for the patient and he engaged in this which was beneficial to him. Over the course of hospitalization patient's mood improved and his demeanor bright ened. At this time patient denies suicidal, homicidal, self-harm thoughts. Patient is not psychoticor manic. Patient will discharge home today with and continue to work with his work well provider regarding stressors of chronic pain. Patient does have follow-up established for him. Pertinent labs: Lab Results Component Value Date ALT 43 10/25/2017 AST 29 10/25/2017 ALKPHOS 83 10/25/2017 BILITOT 0.6 10/25/2017 Lab Results Component Value Date NA 139 10/25/2017 K 3.8 10/25/2017 CL 105 10/25/2017 CO2 26 10/25/2017 Lab Results Component Value Date ETOH NEG 10/25/2017 No results found for: PHENYTOIN, LITHIUM, PHENOBARB, VALPROATE, VALPROATEBL, CBMZ Discharge Mental Status Exam: BP 98/60 Pulse 60 Temp 36.5 ??C (97.7 ??F) (Tympanic) Resp 16 Ht 1.803 m (5' 11 ) Wt 83.2 kg (183 lb 6.8 oz) SpO2 97% BMI 25.58 kg/m?? The patient is alert, oriented, and appropriately dressed with adequate hygeine. There is no unusual psychomotor activity, gait is normal, he is pleasant and cooperative with interview. Eye contact is normal, speech is regular in rate, rhythm, volume, and spontenaity with normal language. he describes his mood as fair,affect is euthymic. he responds to questions appropriately in a logical and goal-directed manner without obviously delusional or bizarre content. he denies suicidal or homicidal ideations, denies auditory hallucinations and does not appear to be attending to such. Attention span, concentration, recent and remote memory are grossly intact. he is of apparently normal range intelligence as demonstrated by use of vocabulary and general fund of knowledge. Insight into the nature of his psychiatric illness is fair as demonstrated by some ability to identify and note changes in symptoms. Judgement is fair as demonstrated by compliance with treatment. Discharge diagnosis: 1: Acute adjustment disorder with depressed mood Discharge Problem List Patient Active Problem List Diagnosis ??? Acute adjustment disorder with depressed mood ??? Chronic bilateral low back pain with sciatica ??? Rotator cuff injury Discharge plan: Discharge to: home with Follow up with : Follow-up Information APPT SCHEDULED WITH MICHELA BAUTISTA @ [facility] ON WEDNESDAY,11-16-17 @ 11:00. . Contact information: PHONE: [phone] ADDRESS: [address] [place] [address], [place] [address] [facility] The patient is NOT prescribed antipsychotic medication. [employer] dictation software use. Discharge medications: Medication List TAKE these medications AM Noon PM Bedtime As Needed amitriptyline 75 MG tablet Commonly known as: ELAVIL Take 75 mg by mouth nightly. 9 pm baclofen 10 MG tablet Commonly known as: LIORESAL Take 10 mg by mouth nightly. 9 pm capsaicin 0.025 % cream Commonly known as: ZOSTRIX Apply to back for pain control three times daily as needed. Avoid use on damaged, broken, or irritated skin, avoid occlusive * DULoxetine 30 MG capsule Commonly known as: CYMBALTA Take 1 capsule by mouth nightly. 8 pm * DULoxetine 60 MG capsule Commonly known as: CYMBALTA Take 1 capsule by mouth daily. Start taking on: 10/30/2017 8 am lidocaine 5 % ointment Commonly known as: XYLOCAINE Apply topically 2 (two) times daily. 8 am 8 pm oxyCODONE HCl ER 15 MG T12a 12 hr tablet Commonly known as: OXYCONTIN Take 15 mg by mouth every 12 (twelve) hours. 8 am 8 pm PERCOCET 10-325 MG per tablet Generic drug: oxyCODONE-acetaminophen Take 1 tablet by mouth every 4 (four) hours as needed for Pain. propranolol 60 MG 24 hr capsule Commonly known as: INDERAL LA Take 60 mg by mouth daily. 8 am * This list has 2 medication(s) that are the same as other medications prescribed for you. Read thedirections carefully, and ask your doctor or other care provider to review them with you. Where to Get Your Medications You may get the following printed prescriptions filled at any pharmacy. Bring a paper prescription for each of these medications ?? capsaicin 0.025 % cream ?? DULoxetine 30 MG capsule ?? DULoxetine 60 MG capsule GEORGE Francis, DNP Cosigned by Shanta Barbosa MD at 10/29/2017 2:36 PM AUGER MACHINE OFFBEARER R MACHINE OFFBEARER R MACHINE OFFBEARER documented in this encounter Discharge Instructions * Discharge Instructions* Leonard Vivas RN - 10/29/2017 11:37 AM AUGER MACHINE OFFBEARER [facility] Discharge Date: 10/29/2017 Please bring this document with you to your next Doctor's visit. Medication/Prescription Information: Paper Prescriptions sent with patient Diet: Eat a well-balanced diet. Activity: ?? Get up and around as you are able. Taking care of you: ?? Follow the safety plan you were given in the hospital. ?? Be careful not to take too much medicine. You could take too much and hurt yourself. ?? Wash you hands often with soap and water. ?? Do not drink alcohol. ?? Do not use drugs. ?? Do not smoke. Do not use tobacco. Stay away from secondhand smoke. For more help call 5-898-PPMMBFS. ( ). If you have questions or concerns, call: Your Doctor: Meme VAZQUEZ [phone] Nurses's Station: 1W [phone] Phone number when leave hospital. National Suicide Prevention Hotline: (8-347-Nqokyuf) National Crisis Line: I know why I was in the hospital. I know what I need to do when I get home. I have a copy of this paper. R MACHINE OFFBEARER documented in this encounter Medications at Time [...] Apply topically 2 (two) times daily. 8 oxyCODONE HCl ER (OXYCONTIN) 15 MG T12A 12 hr tablet Take 15 mg by mouth every 12 (twelve) hours. 8 oxyCODONE-acetam inophen (PERCOCET) 10-325 MG per tablet Take 1 tablet by mouth every 6 (six) hours as needed for Pain. 8 propranolol (INDERAL LA) 60 MG 24 hr capsule Take 60 mg by mouth daily. 8 documented as of this encounter Progress Notes * Shanta Barbosa MD - 10/29/2017 12:29 PM CST PSYCHIATRY STAFF ATTESTION Patient name: Edilberto Hawley Date: 10/29/2017 Primary Problem: Acute adjustment disorder with depressed mood I have seen an evaluated the patient, and I agree with the assigned TANK CLEANING SUPERVISOR's assessment and plan.There is no overt psychosis or griffin. The patient denies suicidal or homicidal ideations. his affect is good and he demonstrates understanding of and agreement with his plan. The patient will discharge today. Labs Reviewed: Lab Results Component Value Date GLU 93 10/25/2017 CA 8.6 10/25/2017 NA 139 10/25/2017 K 3.8 10/25/2017 CO2 26 10/25/2017 CL 105 10/25/2017 BUN 13 10/25/2017 CREATININE 0.89 10/25/2017 ALT 43 10/25/2017 BILITOT 0.6 10/25/2017 AST 29 10/25/2017 PROT 7.2 10/25/2017 ALBUMIN 4.0 10/25/2017 ALKPHOS 83 10/25/2017 WBC 5.1 10/25/2017 HGB 15.0 10/25/2017 HCT 41.1 10/25/2017 MCV 89.2 10/25/2017 PLT 171 10/25/2017 TSH 1.48 10/25/2017 Billing Code 56320. Total Time Spent: 35 minutes in conjunction with the assigned TANK CLEANING SUPERVISOR, see his/heraccompanying note this date. SHANTA BARBOSA MD R MACHINE OFFBEARER * Cleve Marroquin, TANK CLEANING SUPERVISOR - 10/28/2017 1:43 PM CST PSYCHIATRY SUBSEQUENT INPATIENT NOTE 10/28/2017 Patient: Edilberto Hawley AGE: 62 yrs Admit Date: 10/25/2017 Chief Complaint: Acute adjustment disorder with depressed mood No acute overnight events. No new or worsening physical complaints. Tolerating medications without significant side effects. Patient is eating well, slept well last evening. Today patient wakes up tells me that his back is hurting him. Patient tells me that he also did not realize how exhausted he was as he has been sleeping quite a bit since he has been here. Patient reports he feels like he needed this hospitalization to rest and recuperate from everything he has been doing. Patient reports not feeling quite ready to discharge today. Patient reports that if he sleeps well tonight he would still like to go home tomorrow. Patient encouraged to utilize the capsaicin cream between doses of medications. Patient denies further needs or questions to me at this time. he remains oriented with normal speech and gait. Mood is fair, affect is blunted. Thought process is logical with intact associations. Attention and memory remain intact. Denying suicidal thoughts orhallucinations.BP 116/78 Pulse 72 Temp 36.5 ??C (97.7 ??F) (Tympanic) Resp 18 Ht 1.803 m (5' 11 ) Wt 83.2 kg (183 lb 6.8 oz) SpO2 97% BMI 25.58 kg/m?? ASESSEMENT/PLAN Patient seems to be tolerating the rapid increase of duloxetine. We will continue to monitor blood pressure to ensure that he continues to tolerate increased dose. If patient continues to do well andsleeps well overnight will plan on patient discharging home tomorrow at noon. PLAN: Acute adjustment disorder with depressed mood -No medication changes warranted -Today to monitor for safety and progress I have discussed this case with Dr. Barbosa Complexity: leeanna (Billing Code 46159) Current Scheduled Medications amitriptyline 75 mg Nightly baclofen 10 mg Nightly DULoxetine 60 mg QAM DULoxetine 30 mg Nightly lidocaine BID oxyCODONE HCl ER 15 mg 2 times per day propranolol 60 mg Daily Current As Needed Medications acetaminophen 1,000 mg TID PRN capsaicin TID PRN hydrOXYzine pamoate 25 mg TID PRN oxyCODONE 5 mg Q4H PRN And oxyCODONE-acetaminophen 1 tablet Q4H PRN [employer] dictation software used. GEORGE Francis, DNP Psychiatry R MACHINE OFFBEARER * Phyllis Lama, CHAP - 10/27/2017 4:39 PM CST Spirituality Group Client participated in a Spirituality Group today, on the topic of the worksheet Full or Empty? We talked together about things that deplete us and make us feel empty and we also talked about things that feed us and make us feel full. We talked about how some the things in our lives can deplete us some times and fill us at other times. Clients were then given an additional handout about the skills and practices that can help to build happiness. At the end of the group, they were also educatedabout the spiritual services that are available to them. Edilberto was present for most of the group, with moderate participation. He talked about some of the things that frustrate him and make him feelexhausted. He also talked about some of the things that help him to feel better, like taking time to himself to play and walk with his three dogs. --Chaplain Elise R MACHINE OFFBEARER * Cleve Marroquin ARNP - 10/27/2017 2:02 PM CST PSYCHIATRY SUBSEQUENT INPATIENT NOTE 10/27/2017 Patient: Edilberto Hawley AGE: 62 yrs Admit Date: 10/25/2017 Chief Complaint: Acute adjustment disorder with depressed mood No acute overnight events. No new or worsening physical complaints. Tolerating medications without significant side effects. Patient is eating well, slept well last evening. Today he reports that he is feeling better. He is hoping to discharge by Wednesday if he continues to feel well. He reports thathe is still struggling with some dizziness with pain medications but not like before. He denies further needs or questions to me at this time. he remains oriented with normal speech and gait. Mood is fair, affect is blunted. Thought process is logical with intact associations. Attention and memory remain intact. Denying suicidal thoughts orhallucinations.BP 110/76 Pulse 68 Temp 36.4 ??C (97.5 ??F) (Tympanic) Resp 16 Ht 1.803 m (5' 11 ) Wt 83.2 kg (183 lb 6.8 oz) SpO2 97% BMI 25.58 kg/m?? ASESSEMENT/PLAN Will continue duloxetine at current dose. Patient seems to be tolerating increase in duloxetine well. We will continue to monitor. If patient continues to do well we will consider discharge on Wednesday. PLAN: Acute adjustment disorder with depressed mood -Continue duloxetine 90 mg daily -Psychotherapy ordered I have discussed this case with Dr. Barbosa Complexity: moderate (Billing Code [id number]) Current Scheduled Medications amitriptyline 75 mg Nightly baclofen 10 mg Nightly DULoxetine 60 mg QAM DULoxetine 30 mg Nightly lidocaine BID oxyCODONE HCl ER 15 mg 2 times per day propranolol 60 mg Daily Current As Needed Medications acetaminophen 1,000 mg TID PRN capsaicin TID PRN hydrOXYzine pamoate 25 mg TID PRN oxyCODONE 5 mg Q4H PRN And oxyCODONE-acetaminophen 1 tablet Q4H PRN [employer] dictation software used. GEORGE Francis, DNP Psychiatry R MACHINE OFFBEARER * Cleve Marroquin ARNP - 10/26/2017 11:44 AM CST PSYCHIATRY SUBSEQUENT INPATIENT NOTE 10/26/2017 Patient: Edilberto Hawley AGE: 62 yrs Admit Date: 10/25/2017 Chief Complaint: Acute adjustment disorder with depressed mood No acute overnight events. No new or worsening physical complaints. Tolerating medications without significant side effects. Patient is eating well, slept 7 hours overnight with a total sleep time of11 hours. She reports that he usually likes to fall asleep around 7 PM and would like to have his medications administered around this time. Patient tells me that his pain is fairly under control. Patient reports he is still struggling with burning sensations in his back and legs. Patient tells me that he knows he just needs to work towards getting healthy but feels like there is a lot of barriers in his way including insurance companies and his work. Patient and I discussed optimizing Cymbaltafor mood and for chronic pain and he is amenable to continuing this process. Patient amenable to meeting with a psychotherapist while he is here to do some problem solving regarding his psychosocial stressors. Patient denies further needs or questions to me at this time. he remains oriented with normal speech and gait. Mood is fair, affect is blunted. Thought process is logical with intact associations. Attention and memory remain intact. Denying suicidal thoughts orhallucinations.BP 110/76 Pulse 76 Temp 36.7 ??C (98.1 ??F) (Tympanic) Resp 16 Ht 1.803 m (5' 11 ) Wt 83.2 kg (183 lb 6.8 oz) SpO2 97% BMI 25.58 kg/m?? ASESSEMENT/PLAN After reviewing patient's PCPs notes, I see that gabapentin was discontinued though reasons are unclear. His propranolol was also decreased from 80 mg to 60 mg, duloxetine was modestly increased. I am hesitant to restart the gabapentin as his primary housekeeper caregiver stopped this medication. Gabapentin was stopped for unknown reasons, although, based on notes, I suspect it may be due to the fact the patient did complain of a dizzy spell prior to that appointment. At this time we will continue to optimize the duloxetine and we will order psychotherapy for patient. PLAN: Acute adjustment disorder with depressed mood -Increase duloxetine to 90 mg for tomorrow and hold dose there -Psychotherapy ordered I have discussed this case with Dr. Barbosa Complexity: moderate (Billing Code [id number]) Current Scheduled Medications amitriptyline 75 mg Nightly baclofen 10 mg Nightly DULoxetine 30 mg BID lidocaine BID oxyCODONE HCl ER 15 mg 2 times per day propranolol 60 mg Daily Current As Needed Medications acetaminophen 1,000 mg TID PRN capsaicin TID PRN hydrOXYzine pamoate 25 mg TID PRN oxyCODONE 5 mg Q4H PRN And oxyCODONE-acetaminophen 1 tablet Q4H PRN [employer] dictation software used. GEORGE Francis, DNP Psychiatry R MACHINE OFFBEARER documented in this encounter H&P Notes * Cleve Marroquin ARNP - 10/25/2017 3:23 PM CST [facility] [place], [place] [address] Patient Name: Edilberto Hawley MR Number: [id number] : 1955 ADMIT DATE: 10/25/2017 CONFIDENTIAL: Do not release without authorization HISTORY AND PHYSICAL CHIEF COMPLAINT: My doctor sent me here. HISTORY OF THE PRESENT ILLNESS: Edilberto Hawley is a 62-year-old male who presented to the emergency room after his doctor from [employer] sent him over for psychiatric evaluation. Per care everywhere records the patient's suffered a work injury resulting in lumbar spine fracture, head laceration, and rotator cuff injury. Patient expressed increasing depression, feelings of hopelessness, and may have made some suicidal comments which prompted admission. Patient was pleasant and cooperative with the interview. Patient tells me that he has been struggling with a back injury he sustained at work since April 16 and has been seeing the work will doctor since then. Patient reports that his doctor seems to be really trying to help him however insurance keeps rejecting referrals and procedures. Patient reports that 3 weeksago the doctor was able to help him get a 2-3 day work week however work has been making them work 8 hours and has been not honoring the restrictions that his doctors have been providing. 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 Patient reports that he has a lot of extreme pain and was doing well and some pain meds but when they started adding more medications he started becoming drowsy and has not been able to drive. Patient reportsthat Dr. Pacheco restriction letter saying that he was not able to drive to work however his work is not taking the doctor's recommendations and making him drive anyway. Patient reports that he feels like the company he works for keep sending him to different doctors who are trying to say that he is healed so that he can continue to work. Patient acknowledges that these are a lot of psychosocial stressors but does admit that he has been feeling very depressed and hopeless because of his situation. Patient reports that overall his mood has been sad, he has had feelings of hopelessness, but denies excessive guilt. Patient reports his appetite is good and he sleeps well with his cocktail of painmedication at bedtime but feels tired in the morning because he feels like he is in pain during thenight and just cannot tell. Patient denies suicidal ideation with a plan. Patient denies homicidal ideation. Patient reports having a passive wish on most days. Patient feels anxious mostly about life stressors but does not have debilitating anxiety that is preventing him from doing anything.Patient denies rituals or compulsions. Patient denies auditory visual hallucinations. Patient denies any past or recent history of griffin and I am unable to elicit any symptoms at this time. Patient does not appear to be manic during the interview. The patient's symptom severity is high. The duration of the symptoms is: Days to Weeks Modifying factors and associated signs and symptoms are summarized above in HPI. PAST PSYCHIATRIC HISTORY: She reports that 20 years ago he attempted to commit suicide. Patient reports that during that timeis 4 with old grandson and this sent him into a spiral of using drugs. Patient reports that for 5 years he did not want to do drugs and then 5 years he wanted to stop and could not. Patient reports at one point he got so discouraged about his life and drug habit that he overdosed on Pamelor. Patient reports that his cousin dropped by that day found him and he was hospitalized. Patient reports that he currently takes amitriptyline for depression. Patient reports that this is the first ever behavioral health hospitalization he has had. Patient denies any recent suicide attempts or incidences of self-harm. Patient denies history of self-harm. MEDICAL HISTORY: Past Medical History: Diagnosis Date ??? Back injury ??? Chronic back pain greater than 3 months duration ??? Depression ??? Migraines ??? Shoulder injury MEDICATIONS: Prior to Admission medications Medication Sig Start Date End Date Taking? Authorizing Provider amitriptyline (ELAVIL) 75 MG tablet Take 75 mg by mouth nightly. Yes Not In System Provider baclofen (LIORESAL) 10 MG tablet Take 10 mg by mouth nightly. Yes Not In System Provider DULoxetine (CYMBALTA) 20 MG capsule Take 40 mg by mouth daily. Yes Not In System Provider lidocaine (XYLOCAINE) 5 % ointment Apply topically 2 (two) times daily. Yes Not In System Provider oxyCODONE HCl ER (OXYCONTIN) 15 MG T12A 12 hr tablet Take 15 mg by mouth every 12 (twelve) hours. Yes Not In System Provider oxyCODONE-acetaminophen (PERCOCET) 10-325 MG per tablet Take 1 tablet by mouth every 4 (four) hoursas needed for Pain. Yes Not In System Provider propranolol (INDERAL LA) 60 MG 24 hr capsule Take 60 mg by mouth daily. Yes Not In System Provider ALLERGIES: Not on File PHYSICAL EXAM: Please see the emergency room or transferring physician note. 10-POINT REVIEW OF SYSTEMS: Pertinent positive and negative as above in HPI. All other systems negative. LABS REVIEWED: Drugs of Abuse: Positive for opiates (prescribed) Ethanol Level: Negative No EKG on file Lab Results Component Value Date WBC 5.1 10/25/2017 HGB 15.0 10/25/2017 HCT 41.1 10/25/2017 MCV 89.2 10/25/2017 PLT 171 10/25/2017 Lab Results Component Value Date ALT 43 10/25/2017 AST 29 10/25/2017 ALKPHOS 83 10/25/2017 BILITOT 0.6 10/25/2017 Lab Results Component Value Date CREATININE 0.89 10/25/2017 BUN 13 10/25/2017 NA 139 10/25/2017 K 3.8 10/25/2017 CL 105 10/25/2017 CO2 26 10/25/2017 Lab Results Component Value Date TSH 1.48 10/25/2017 FAMILY HISTORY: Non contributory. SOCIAL HISTORY: Patient reports that he actually lives in [place] but is in [place] for work. Patient reports that [place] however she has returned to [place] and he remains in [place] with his sister. Patient reports that he has been to his for about 45 years. Patient reports that he has 3 children and gets along with all but 1 of them. Patient reports that 1 of his children had a lot of problems and actually twice and was brought back and has not been the same since then. 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 Patient reports that he got a moved from job to job with the [employer] company and then when he got her in April had to change jobs again. Patient currently working at [employer]. Patient reports that the company he works for does not honor any of his doctors restrictions or recommendations despite them writing letters. MENTAL STATUS EXAM: BP 130/80 Pulse 74 Temp 36.4 ??C (97.5 ??F) (Tympanic) Resp 18 Ht 1.803m (5' 11 ) Wt 85 kg (187 lb 6.3 oz) SpO2 95% BMI 26.14 kg/m?? This is an alert, oriented, 62 y.o. male, dressed appropriately with adequate hygiene. There is no unusual psychomotor activity, gait is normal, he is pleasant and cooperative with interview. Eye contact is normal, speech is regular in rate, rhythm, volume, and spontenaity with normal language. he d escribes his mood as hopeless, affect is sad and tearful. he responds to questions appropriately lizz logical and goal-directed manner without obviously delusional or bizarre content. Associations are intact. he denies suicidal or homicidal ideations, denies auditory hallucinations and does not appear to be attending to such. Attention span, concentration, recent and remote memory are grossly intact. he is of apparently normal range intelligence as demonstrated by use of vocabulary and general fund of knowledge. Insight into the nature of his psychiatric illness is fair as demonstrated by some ability to identify and note changes in symptoms. Judgement is fair as demonstrated by compliance with treatment. PROBLEM LIST (DIAGNOSES) 1: Acute adjustment disorder with depressed mood 2: Chronic bilateral low back pain, with sciatica presence unspecified 3: Rotator cuff injury ASSESSMENT: Se Hawley is a 62-year-old male who presented to the emergency room after he was tearful and making suicidal like statements at his doctor's appointment. The patient has a history ofa lumbar spine fracture after he sustained this injury at work in April. He has been treated by various different physicians and it has ongoing treatment for his pain and back injury, but started feeling hopeless and sad after driving off the road due to so many sedating medications. At this point in time the patient has some significant symptoms consistent with an adjustment disorder with depressed mood and has been experiencing a low mood feelings of hopelessness, and a passive wish on . The patient is currently taking amitriptyline for pain and for depression and is also supposed to be taking Cymbalta. At this point in time I do feel that it would be best to optimize his Cymbalta as he continues to have depressive symptoms and this can also help with pain. We will order ps ychotherapy for patient as a lot of this has to do with psychosocial stressors that are not fixed by medications. Since pain is a specialty on its own and the patient is here for treatment of his depression, I will continue the patient's previously prescribed pain medication. Will monitor patient for response to medication. TREATMENT PLAN: 1: Acute adjustment disorder with depressed mood -Increase duloxetine to 60 mg daily with plan to optimize dose -Continue amitriptyline 75 mg at bedtime -Continue propranolol 60 mg daily 2: Chronic Stable Medical Conditions Chronic bilateral low back pain, with sciatica presence unspecified; Rotator cuff injury -Continue baclofen 10 mg by mouth at bedtime -Continue oxycodone 15 mg every 12 hours -Continue Percocet 10-325 mg 1 tab every 4 hours as needed for pain 3: Disposition: to home when stable Records Reviewed: Records in [facility] reviewed. Records in care everywhere reviewed. Consultations: Social Work The patient is currently ill with high risk of bodily harm. The presenting problem is new and requires further follow-up. Estimated length of stay: Surpasses 2 midnights. I have discussed this case with Dr. Barbosa I have spent 70 minutes total provider time with more than 50% of time involved in counseling and coordination of care. Dictation software used, errors may occur from program. GEORGE Francis, DNP Cosigned by Shanta Barbosa MD at 10/26/2017 12:50 PM AUGER MACHINE OFFBEARER R MACHINE OFFBEARER R MACHINE OFFBEARER documented in this encounter ED Notes * Sin Koroma RN - 10/25/2017 12:02 PM CST Pt eating food tray and cooperative. Denies needs at this time. Sleeping on sofa at this time. Respirations easy and unlabored. R MACHINE OFFBEARER * Shant Comer Ed - 10/25/2017 11:00 AM CST Pt lives in [place] with his sister, and commutes to [place] for work at [employer]. 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 Pt reports that depression has gotten out of control due to feeling like insurance is making him go to many doctors and being bounced around. He states that he feels that they are trying toget him to a doctor that would not recommend surgery for his back. 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 Last use of cocaine and meth were 15 or so years ago, alcohol 9 months ago. He is currently although his and him are seperated. They have 3 adult sons, 1 in [place] and 2 that live in [place]. Pt states that he is proud of having 11 grandchildren and 6 great grandchildren. Pt states that he gets relief from depression by crying. He has been crying more frequently then normal for him. Pt reports difficulty with sleep. No difficulty with appetite. Pt states that everything he does turns out bad. He reports hopelessness and helplessness. Shant Comer, Psych Access R MACHINE OFFBEARER * Mendy Barron, TANK CLEANING SUPERVISOR - 10/25/2017 9:22 AM CST Images from the original note were not included. History Chief Complaint Patient presents with ? ? Back Pain-New >28 days ??? Psychiatric Evaluation Se Casanova, is a 62-year-old male patient who presents to the ER for evaluation of continued pain, increased frustration and depression. Patient reports he had an injury at work back in April 2017. He tripped over a large pump, falling backwards and landing on his left arm. He sustained an injury to his left rotator cuff and reports he fractured his lower back. He states he also hit his headat that time. He was evaluated in the emergency room, thinks he went to [facility]. He reports ongoing problems with pain since his injury. He reports pain every day. He is currently working for [employer] and reports multiple frustrations against them. He reports that he has been seeing multiple doctors at [facility], in [place] and also at [facility]. He was told that he could have surgery on his left rotator cuff, however his work is giving him problems about getting thisdone and he has concerns about his insurance. He reports he is very frustrated and feels very hopeless. He is taking OxyContin and Percocet daily for the pain and states that he is driving and feels very very drowsy. He is concerned about the amount of pain he is having and trying to continue his job, and he states his job does not care about him. He has been written off of work with doctor's notes, however his work does not take these notes. His pain in his low back is constant and shoots downhis left leg, and he has burning in his left thigh. He reports feeling very hopeless and feels likethere is no reason for living. He has no suicidal plan. Past Medical History: Diagnosis Date ??? Back injury ??? Chronic back pain greater than 3 months duration ??? Depression ??? Migraines ??? Shoulder injury History reviewed. No pertinent surgical history. History reviewed. No pertinent family history. Social History Substance Use Topics ??? Smoking status: Former Smoker ??? Smokeless tobacco: Not on file ??? Alcohol use No Review of Systems Constitutional: Positive for fatigue. Negative for chills, fever and unexpected weight change. HENT: Negative. Eyes: Negative. Respiratory: Negative for cough and shortness of breath. Cardiovascular: Negative for chest pain. Gastrointestinal: Negative for abdominal pain, diarrhea and vomiting. Genitourinary: Negative for difficulty urinating, dysuria and hematuria. Musculoskeletal: Positive for back pain and myalgias. Skin: Negative for color change and wound. Neurological: Negative for weakness, numbness and headaches. Psychiatric/Behavioral: Negative for self-injury. Allergies / Sensitivities Not on File Current Immunization Status per Nursing Immunization Status Have you ever had a pneumococcal (pneumonia) vaccination?: Yes Pneumococcal Vaccine Screen - Year Round Have you ever had a pneumococcal (pneumonia) vaccination?: Yes Influenza Vaccine Screen - August through January Have you had an influenza vaccine this season?: Yes Immunization Hx There is no immunization history on file for this patient. Physical Exam BP (!) 154/96 Pulse 80 Temp (!) 35.8 ??C (96.4 ??F) (Tympanic) Resp 16 Ht 1.803 m (5' 11 ) Wt 85 kg (187 lb 6.3 oz) SpO2 97% BMI 26.14 kg/m?? Physical Exam Constitutional: He appears well-developed and well-nourished. HENT: Head: Normocephalic and atraumatic. Nose: Nose normal. Right sinus exhibits no maxillary sinus tenderness and no frontal sinus tenderness. Left sinus exhibits no maxillary sinus tenderness and no frontal sinus tenderness. Mouth/Throat: Uvula is midline, oropharynx is clear and moist and mucous membranes are normal. No oropharyngeal exudate, posterior oropharyngeal edema, posterior oropharyngeal erythema or tonsillar abscesses. Eyes: Conjunctivae and EOM are normal. Right eye exhibits no discharge. Left eye exhibits no discharge. Neck: Normal range of motion. Neck supple. Cardiovascular: Regular rhythm, normal heart sounds and intact distal pulses. Tachycardia present. Pulmonary/Chest: Effort normal and breath sounds normal. No respiratory distress. He has no wheezes. He has no rales. He exhibits no tenderness. Abdominal: Soft. Bowel sounds are normal. Musculoskeletal: Left shoulder: He exhibits decreased range of motion and tenderness. Lumbar back: He exhibits decreased range of motion, tenderness and bony tenderness. Back: Lymphadenopathy: He has no cervical adenopathy. Neurological: He is alert. Skin: Skin is warm and dry. No rash noted. No erythema. No pallor. Nursing note and vitals reviewed. Recent Results (from the past 48 hour(s)) Acetaminophen level Collection Time: 10/25/17 10:53 AM Result Value Ref Range Acetaminophen Level <2.0 (L) 10.0 - 20.0 mcg/mL TSH Collection Time: 10/25/17 10:53 AM Result Value Ref Range TSH 1.48 0.36 - 3.74 uIU/mL CBC and differential Collection Time: 10/25/17 10:53 AM Result Value Ref Range WBC 5.1 4.5 - 11.0 th/mm3 RBC 4.61 4.54 - 5.77 mill/mm3 Hemoglobin 15.0 14.0 - 17.7 g/dL Hematocrit 41.1 40.0 - 52.0 % MCV 89.2 82.0 - 99.0 fL MCH 32.5 (H) 27.0 - 32.0 pg MCHC 36.5 (H) 32.0 - 36.0 g/dL Platelets 171 150 - 400 th/mm3 RDW 39.3 (L) 39.6 - 47.4 fL NRBC Absolute 0.00 0.00 th/mm3 Neutrophil % 44.9 35.0 - 65.0 % Neutrophils Absolute Count 2.31 1.30 - 6.00 th/mm3 Lymphocytes % 38.9 23.0 - 45.0 % Lymphocytes Absolute 2.00 1.50 - 3.50 th/mm3 Monocyte % 11.9 (H) 0.0 - 10.0 % Monos Absolute 0.61 <1.0 th/mm3 Eosinophils Relative % 3.7 (H) 1.0 - 3.0 % Eosinophils Absolute Count 0.19 <0.7 th/mm3 Basophils % 0.4 0.0 - 1.0 % Basophils Absolute 0.02 <0.1 th/mm3 Immature Neutro % 0.2 0.0 - 1.0 % Immature Neutro 0.01 th/mm3 Comprehensive metabolic panel Collection Time: 10/25/17 10:53 AM Result Value Ref Range Sodium 139 136 - 145 mmol/L Potassium 3.8 3.5 - 5.0 mmol/L Chloride 105 95 - 110 mmol/L CO2 26 21 - 32 mmol/L Glucose 93 70 - 99 mg/dL BUN, Blood 13 7 - 23 mg/dL Creatinine, Serum 0.89 0.51 - 1.17 mg/dL Calcium 8.6 8.5 - 10.1 mg/dL Total Protein 7.2 6.4 - 8.2 g/dL Albumin 4.0 3.4 - 5.0 g/dL Bilirubin Total 0.6 0.2 - 1.0 mg/dL Alkaline Phosphatase 83 45 - 117 U/L AST 29 7 - 40 U/L ALT 43 0 - 65 U/L Anion Gap 8 2 - 18 mmol/L BUN/Creatinine Ratio 14.6 10.0 - 24.0 Osmolality Calculated 277 275 - 295 mosm/Kg Globulin 3.2 2.5 - 3.8 g/dL A/G Ratio 1.3 1.1 - 2.3 EGFR Non-/Cook Islander >60 >60 EGFR /Cook Islander >60 >60 Ethanol Collection Time: 10/25/17 10:53 AM Result Value Ref Range Ethanol Level NEG NEG mg/dL Salicylate level Collection Time: 10/25/17 10:53 AM Result Value Ref Range Salicylate Level <2 (L) 2 - 10 mg/dL Tricyclic Serum Screen Collection Time: 10/25/17 10:53 AM Result Value Ref Range Tricyclics Serum Screen NEG NEG Urinalysis with Reflex Testing Collection Time: 10/25/17 11:01 AM Result Value Ref Range Specimen,UR CLN CATCH Color STRAW STRAW Clarity CLEAR CLEAR Glucose, Urinalysis NEG NEG mg/dL Bilirubin Urine NEG NEG Ketones, UA NEG NEG mg/dL Specific [place] 1.021 1.005 - 1.030 Blood NEG NEG pH 5.5 5.0 - 8.0 Protein NEG NEG mg/dL Urobilinogen 0.2 0.2 - 1.0 EU/dL Nitrite NEG NEG Leukocyte Esterase, UA NEG NEG Comment NONE Rapid drug screen, urine Collection Time: 10/25/17 11:01 AM Result Value Ref Range Amphetamines,UR NOT DET NOT DET Barbiturates,UR NOT DET NOT DET Benzodiazepines,UR NOT DET NOT DET Cannabinoids,UR NOT DET NOT DET Cocaine,UR NOT DET NOT DET Opiates,UR POS (A) NOT DET Specific [place], UR 1.021 1.005 - 1.035 Imaging / Studies reviewed: ED Course Pt evaluated and is very tearful on initial exam, complaining of feeling very hopeless. He has beenthrough a lot of ongoing pain in his low back and left shoulder. He is having difficulty with his work and needs to have surgery on his left shoulder. He denies being suicidal on initial exam, but reports hopelessness and feeling worthless. Called and spoke with [facility], Dr. Azar, who knew patient fairly well. Shee states that patient has been complaining of feeling very depressed over the last week and actually was at the office to talk this morning, stating there was nothing left to live for and felt that he needed to come to the hospital. Pt wanting help for his depression and hopelessness and agreeable for admission to hospital. Toxicology work-up complete and remarkable for UDS showing opiates, but otherwise negative. Discussed pt care with on-call psychiatry GEORGE Ivan and pt will be admitted. Procedures ED Course Clinical Impressions as of Oct 25 2203 Depression, unspecified depression type Plan: Current Discharge Medication List Disposition: Admit MDM Number of Diagnoses or Management Options Depression, unspecified depression type: new and requires workup Amount and/or Complexity of Data Reviewed Clinical lab tests: ordered and reviewed Discussion of test results with the performing providers: yes Review and summarize past medical records: yes Discuss the patient with other providers: yes Independent visualization of images, tracings, or specimens: yes Risk of Complications, Morbidity, and/or Mortality Presenting problems: high Diagnostic procedures: moderate Management options: moderate Patient Progress Patient progress: stable Other Assessments: ABCD2: N/A [id number]: N/A HAS-BLED: N/A Heart Score: N/A PAWSS: N/A PECARN: N/A PERC: N/A SBIRT: N/A WELLS: N/A NIH STROKE SCALE (last 24 hours) NIH Stroke Scale No documentation. Informed Consent for tPA: N/A Cosigned by Omkar Andre MD at 10/26/2017 6:18 AM AUGER MACHINE OFFBEARER R MACHINE OFFBEARER R MACHINE OFFBEARER * George Howard RN - 10/25/2017 9:00 AM CST Pt sent over from [facility] for psych eval. Pt reports had an injury at work in April, has been battling chronic pain in back and shoulder since. Pt states he needs left rotator cuff surgery done but his employer will not approve it. Pt reports they keep acting like it was my fault that I got hurt, they make me feel bad about it, I couldn't help it . Pt tearful and sad. Pt states he is currently working for [employer] in [place], but has a commute to work and has been falling asleep while driving due to medications. Pt reports feeling hopeless and worthless . I was doing so good and now, I am nothing . Pt denies suicidal ideations or homicidal ideations at this time. R MACHINE OFFBEARER documented in this encounter Plan of Treatment Not on file documented as of this encounter Procedures Procedure Name Priority Date/Time Associated Diagnosis Comments URINALYSIS WITH REFLEX MICROSCOPIC TESTING STAT 10/25/2017 11:01 AM AUGER MACHINE OFFBEARER RAPID DRUG SCREEN, URINE STAT 10/25/2017 11:01 AM AUGER MACHINE OFFBEARER TRICYCLIC SERUM SCREEN STAT 7 10:53 AM AUGER MACHINE OFFBEARER CBC AND DIFFERENTIAL STAT 10/25/2017 10:53 AM AUGER MACHINE OFFBEARER TSH STAT 10/25/2017 10:53 AM AUGER MACHINE OFFBEARER ETHANOL STAT 10/25/2017 10:53 AM AUGER MACHINE OFFBEARER ACETAMINOPHEN LEVEL STAT 10/25/2017 1 0:53 AM AUGER MACHINE OFFBEARER SALICYLATE LEVEL STAT 10/25/2017 10:5 3 AM AUGER MACHINE OFFBEARER COMPREHENSIVE METABOLIC PANEL STAT 10/25/2017 10:53 AM AUGER MACHINE OFFBEARER documented in this encounter Results * (ABNORMAL) Rapid drug screen, urine (10/25/2017 11:01 AM AUGER MACHINE OFFBEARER) Amphetamines,UR NOT DET NOT DET [facility] Comment:(Cutoff is 1000 ng/m L) Barbiturates,UR NOT DET NOT DET [facility] Comment:(Cutoff is 200 ng/mL ) Benzodiazepines,UR NOT DET NOT DET [facility] Comment:(Cutoff is 200 ng/mL ) Cannabinoids,UR NOT DET NOT DET [facility] Comment:(Cutoff is 50 ng/mL) Cocaine,UR NOT DET NOT DET [facility] Comment:(Cutoff is 300 ng/mL ) Opiates,UR POS(A) NOT DET [facility] Comment:(Cutoff is 300 ng/mL ) Specific [place], UR 1.021 1.005 - 1.035 [facility] Comment: -- NTD stands for NOT DETECTED -- -- Levels of drugs in a random urine sample are dependent upon the urine concentration, time since ingestion, and drug half-life. ??Specific gravity of the urine tested is reported to aid in interpreting the significance of the result. Although immunologic assays are very sensitive and specific, there can be false positives due to crossreactivity of closely similar molecules. ??Positive results in a rapid urine screen should be followed with a request for alternate method confirmation if the results have legal implications. Test Performed at [facility], [address] [place], [place]. URINE SPECIMEN FROM URINARY BLADDER / Unknown 10/25/2017 11:01 AM AUGER MACHINE OFFBEARER 10/25/2017 11:05 AM AUGER MACHINE OFFBEARER Mendy VAZQUEZ URINE ORDERABLES Final Result [facility] [address], [place], [place] [phone] * Urinalysis with Reflex Testing (10/25/2017 11:01 AM AUGER MACHINE OFFBEARER) Specimen, UA CLN CATCH [facility] Color, UA STRAW STRAW [facility] Clarity, UA CLEAR CLEAR [facility] Glucose, UA NEG NEG mg/dL [facility] Bilirubin, UA NEG NEG [facility] Ketones, UA NEG NEG mg/dL [facility] Specific [place], UA 1.021 1.005 - 1.030 [facility] Blood [facility]G [facility]G [facility] PH, UA 5.5 5.0 - 8.0 [facility] Protein, UA NEG NEG mg/dL [facility] Urobilinogen,U A 0.2 0.2 - 1.0 EU/dL [facility] Nitrite, UA NEG NEG [facility] Leukocyte Esterase, UA NEG NEG [facility] Comment NONE [facility] Comment:Test Performed at [facility], [address] [place], [place]. URINE SPECIMEN FROM URINARY BLADDER / Unknown 10/25/2017 11:01 AM AUGER MACHINE OFFBEARER 10/25/2017 11:05 AM AUGER MACHINE OFFBEARER Mendy Barron [facility] URINE ORDERABLES Final Result [facility] [address], [place], [place] [phone] * Tricyclic Serum Screen (10/25/2017 10:53 AM AUGER MACHINE OFFBEARER) Tricyclics Serum Screen NEG NEG [facility] Comment:Test Performed at [facility], [address] [place], [place]. 10/25/2017 10:5 3 AM AUGER MACHINE OFFBEARER 10/25/2017 10:54 AM AUGER MACHINE OFFBEARER Mendy Barron [facility] BLOOD ORDERABLES Final Re sult [facility] [address], [place], [place] [phone] * (ABNORMAL) Salicylate level (10/25/2017 10:53 AM AUGER MACHINE OFFBEARER) Salicylate Level <2(L) 2 - 10 mg/dL [facility] Comment:Test Performed at [facility], [address] [place]. 10/25/2017 10:5 3 AM AUGER MACHINE OFFBEARER 10/25/2017 10:54 AM AUGER MACHINE OFFBEARER Mendy Barron [facility] BLOOD ORDERABLES Final Re sult Performing Organization Address [facility] Co de Phone Number [facility] [address], [place], [place] [phone] * Ethanol (10/25/2017 10:53 AM AUGER MACHINE OFFBEARER) Ethanol Level NEG NEG mg/dL [facility] Comment:Test Performed at [facility], [address] [place], [place]. 10/25/2017 10:5 3 AM AUGER MACHINE OFFBEARER 10/25/2017 10:54 AM AUGER MACHINE OFFBEARER Mendy Barron [facility] BLOOD ORDERABLES Final Re sult [facility] [address], [place], [place] [phone] * Comprehensive metabolic panel (10/25/2017 10:53 AM AUGER MACHINE OFFBEARER) Sodium 139 136 - 145 mmol/L [facility] Potassium 3.8 3.5 - 5.0 mmol/L [facility] Chloride 105 95 - 110 mmol/L [facility] CO2 26 21 - 32 mmol/L [facility] Glucose 93 70 - 99 mg/dL [facility] BUN 13 7 - 23 mg/dL [facility] Creatinine 0.89 0.51 - 1.17 mg/dL [facility] Comment:The analysis was per formed using an isotope dilution mass spectrometry (IDMS) traceable methodology. Calcium 8.6 8.5 - 10.1 mg/dL [facility] Total Protein 7.2 6.4 - 8.2 g/dL [facility] Albumin 4.0 3.4 - 5.0 g/dL [facility] Bilirubin Total 0.6 0.2 - 1.0 mg/dL [facility] Alkaline Phosphatase 83 45 - 117 U/L [facility] AST 29 7 - 40 U/L [facility] ALT 43 0 - 65 U/L [facility] Anion Gap 8 2 - 18 mmol/L [facility] BUN/Creatinine Ratio 14.6 10.0 - 24.0 [facility] Osmolality Calculated 277 275 - 295 mosm/Kg [facility] Globulin 3.2 2.5 - 3.8 g/dL [facility] A/G Ratio 1.3 1.1 - 2.3 [facility] Creatinine Based eGFR >60 >60 [facility] Comment: GFR REFERENCE RANGE: >60 mL/min/1.73m2 -- An eGFR of > than, or = to 60, may indicate normal renal function or mildly decreased GFR. EGFR /Cook Islander >60 >60 [facility] Comment: -- An eGFR of > than, or = to 60, may indicate normal renal function or mildly decreased GFR. Test Performed at [facility], [address], [place], [place]. 10/25/2017 10:5 3 AM AUGER MACHINE OFFBEARER 10/25/2017 10:54 AM AUGER MACHINE OFFBEARER Mendy OCHOAP LAB BLOOD ORDERABLES Final Re sult [facility] [address], [place], [place] [phone] * (ABNORMAL) CBC and differential (10/25/2017 10:53 AM AUGER MACHINE OFFBEARER) WBC 5.1 4.5 - 11.0 th/mm3 [facility] RBC 4.61 4.54 - 5.77 mill/mm3 [facility] HGB 15.0 14.0 - 17.7 g/dL [facility] HCT 41.1 40.0 - 52.0 % [facility] MCV 89.2 82.0 - 99.0 fL [facility] MCH 32.5(H) 27.0 - 32.0 pg [facility] [facility] MCHC 36.5(H) 32.0 - 36.0 g/dL [facility] Platelets 171 150 - 400 th/mm3 [facility] RDW-CV 39.3(L) 39.6 - 47.4 fL [facility] NRBC Absolute 0.00 0.00 th/mm3 [facility] Neutrophil % 44.9 35.0 - 65.0 % [facility] Neutrophils Absolute Count 2.31 1.30 - 6.00 th/mm3 [facility] Lymphocytes % 38.9 23.0 - 45.0 % [facility] Lymphocytes Absolute 2.00 1.50 - 3.50 th/mm3 [facility] Monocyte % 11.9(H) 0.0 - 10.0 % [facility] Monos Absolute 0.61 <1.0 th/mm3 [facility] Eosinophils Relative % 3.7(H) 1.0 - 3.0 % [facility] Eosinophils Absolute Count 0.19 <0.7 th/mm3 [facility] Basophils % 0.4 0.0 - 1.0 % [facility] Basophils Absolute 0.02 <0.1 th/mm3 [facility] Immature Granulocytes% 0.2 0.0 - 1.0 % [facility] Immature Granulocytes Absolute 0.01 th/mm3 [facility] Comment:Test Performed at Critical access hospital, [address] [place], [place]. 10/25/2017 10:5 3 AM AUGER MACHINE OFFBEARER 10/25/2017 10:54 AM AUGER MACHINE OFFBEARER Mendy Barron [facility] BLOOD ORDERABLES Final Re sult Performing Organization Address City/[facility] Co de Phone Number [facility] [address], [place], [place] [phone] * TSH (10/25/2017 10:53 AM AUGER MACHINE OFFBEARER) [facility] TSH 1.48 0.36 - 3.74 uIU/mL [facility] Comment:Test Performed at Critical access hospital, [address] [place], [place]. 10/25/2017 10:5 3 AM AUGER MACHINE OFFBEARER 10/25/2017 10:54 AM AUGER MACHINE OFFBEARER Mendy Barron [facility] BLOOD ORDERABLES Final Re sult [facility] [address], [place], [place] [phone] * (ABNORMAL) Acetaminophen level (10/25/2017 10:53 AM AUGER MACHINE OFFBEARER) Pathologist [facility] Acetaminophen Level <2.0(L) 10.0 - 20.0 mcg/mL [facility] Comment:Test Performed at Critical access hospital, [address], [place], [place]. 10/25/2017 10:5 3 AM AUGER MACHINE OFFBEARER 10/25/2017 10:54 AM AUGER MACHINE OFFBEARER us Mendy Barron [facility] BLOOD ORDERABLES Final Re sult [facility] [address], [place], [place] [phone] documented in this encounter Visit Diagnoses Diagnosis Acute adjustment disorder with depressed mood- Primary Depression, unspecified depression type Chronic bilateral low back pain with sciatica Rotator cuff injury Injury, other and unspecified, shoulder and upper arm * Plan of Care - Silva Vogt LBSW - 10/29/2017 11:38 AM CST [facility] DISCHARGE SUMMARY DATE OF DISCHARGE: 10-29-17 DISCHARGE DISPOSITION: PATIENT DISCHARGED TODAY & IS SCHEDULED WITH MICHELA BAUTISTA @ [facility] ON 11-16-17 @ 11:00. TRANSPORTATION: PATIENT TRANSPORTED HOME BY HIS . HE WAS DISCHARGED @ 1:10. DATE [facility] FUNDING APPLICATION FAXED: N/A COMMITTAL STATUS/TRANSFERRED: N/A EDUCATION PROVIDED RE: DISCHARGE PLAN EDUCATION RECIPIENT: PATIENT MODE OF EDUCATION: X Teach Back-1:1 _ Handouts _ Other RESPONSE TO EDUCATION: X Able to understand education _ Partial understanding of education _ Unable to understand education _ Refuses education ADDITIONAL INFORMATION: FAXED DISCHARGE INSTRUCTIONS TO STEPHANIE. NO OTHER SOCIAL SERVICE INTERVENTION. NABILA Cartagena R MACHINE OFFBEARER * Plan of Care - Leonard Vivas RN - 10/29/2017 11:15 AM CST Problem: Violence, Self/Other-Directed, Risk of Goal: LTG: Will demonstrate adherence with treatment plan Outcome: Progressing Problem: Suicide - Risk of Goal: Absence of self-harm Outcome: Progressing R MACHINE OFFBEARER * Plan of Care - Eri De Leon RN - 10/28/2017 11:36 PM CST Problem: Violence, Self/Other-Directed, Risk of Goal: LTG: Will demonstrate adherence with treatment plan Outcome: Progressing Problem: Suicide - Risk of Goal: Absence of self-harm Outcome: Progressing R MACHINE OFFBEARER * Plan of Care - Leonard Vivas RN - 10/28/2017 9:52 AM CST Problem: Violence, Self/Other-Directed, Risk of Goal: LTG: Will demonstrate adherence with treatment plan Outcome: Progressing Problem: Suicide - Risk of Goal: Absence of self-harm Outcome: Progressing R MACHINE OFFBEARER * Plan of Care - Dia Stallings RN - 10/27/2017 9:55 PM CST Problem: Violence, Self/Other-Directed, Risk of Goal: LTG: Will demonstrate adherence with treatment plan Outcome: Progressing Goal: STG: Absence of harm to self or others Outcome: Progressing Problem: Suicide - Risk of Goal: Absence of self-harm Outcome: Progressing R MACHINE OFFBEARER * Plan of Care - Lesley White RN - 10/27/2017 9:38 AM CST Problem: Violence, Self/Other-Directed, Risk of Goal: LTG: Will demonstrate adherence with treatment plan Outcome: Progressing R MACHINE OFFBEARER * Plan of Brendan - Dia Stallings RN - 10/26/2017 8:47 PM CST Problem: Violence, Self/Other-Directed, Risk of Goal: LTG: Will demonstrate adherence with treatment plan Outcome: Progressing Problem: Thought Process - Altered Goal: LTG: Will demonstrate an increased ability to make appropriate decisions when planning with nurse Outcome: Progressing Problem: Suicide - Risk of Goal: Absence of self-harm Outcome: Progressing R MACHINE OFFBEARER * Plan of Care - Lesley White RN - 10/26/2017 10:19 AM CST Problem: Suicide - Risk of Goal: Absence of self-harm Outcome: Progressing R MACHINE OFFBEARER * Plan of Care - Penny Barbosa RN - 10/25/2017 10:11 PM CST Problem: Violence, Self/Other-Directed, Risk of Goal: LTG: Will demonstrate alternative ways of dealing with negative feelings and emotional stress Outcome: Progressing Problem: Suicide - Risk of Goal: Absence of self-harm Outcome: Progressing R MACHINE OFFBEARER documented in this encounter Administered Medications Inactive Administered Medications - up to 3 most recent administrations Medication Order MAR Action Action Date Dose Rate Site acetaminophen (TYLENOL) tablet 1,000 mg, Oral, 3 TIMES DAILY PRN, Mild Pain, Starting on Wed10/25/17 at 1550, For 30 days, Maximum dose of acetaminophen is 4000 mg from all sources in 24 hours. amitriptyline (ELAVIL) tablet 75 mg, Oral, NIGHTLY, First dose on Wed10/25/17 at 2100, For 60 days Given 10/28/2017 8:36 PM AUGER MACHINE OFFBEARER 75 mg Given 10/27/2017 8:03 PM AUGER MACHINE OFFBEARER 75 mg Given 10/26/2017 8:40 PM AUGER MACHINE OFFBEARER 75 mg baclofen (LIORESAL) tablet 10 mg, Oral, NIGHTLY, First dose on Wed10/25/17 at 2100, For 60 days Given 10/28/2017 8:36 PM AUGER MACHINE OFFBEARER 10 mg Given 10/27/2017 8:03 PM AUGER MACHINE OFFBEARER 10 mg Given 10/26/2017 8:40 PM AUGER MACHINE OFFBEARER 10 mg capsaicin (ZOSTRIX) 0.025 % cream Topical, 3 TIMES DAILY PRN, Mild Pain, Starting on Wed10/25/17 at 1549, For 60 days, Apply to back for pain control three times daily as needed. Avoid use on damaged, broken, or irritated skin, avoid occlusive dressings or heat. DULoxetine (CYMBALTA) DR capsule 30 mg, Oral, 2 TIMES DAILY, First dose on Wed10/25/17 at 2000, For 60 days Given 10/26/2017 8:23 AM AUGER MACHINE OFFBEARER 30 mg Given 10/25/2017 8:13 PM AUGER MACHINE OFFBEARER 30 mg DULoxetine (CYMBALTA) DR capsule 60 mg, Oral, EVERY MORNING, First dose on Wed10/27/17 at 0800, For 60 days Given 10/29/2017 8:16 AM AUGER MACHINE OFFBEARER 60 mg Given 10/28/2017 8:50 AM AUGER MACHINE OFFBEARER 60 mg Given 10/27/2017 8:18 AM AUGER MACHINE OFFBEARER 60 mg DULoxetine (CYMBALTA) DR capsule 30 mg, Oral, NIGHTLY, First dose (after last modification) on Wed10/26/17 at 1900, For 30 days Given 10/28/2017 6:47 PM AUGER MACHINE OFFBEARER 30 mg Given 10/27/2017 8:03 PM AUGER MACHINE OFFBEARER 30 mg Given 10/26/2017 6:26 PM AUGER MACHINE OFFBEARER 30 mg DULoxetine (CYMBALTA) DR capsule 60 mg, Oral, DAILY, First dose on Wed10/30/17 at 0800, For 60 days hydrOXYzine pamoate (VISTARIL) capsule 25 mg, Oral, 3 TIMES DAILY PRN, Anxiety, Indications: Sedated State, Starting on Wed10/25/17 at 1550, For 60 daysIndications:Sedated State lidocaine (XYLOCAINE) 5 % ointment Topical, 2 TIMES DAILY, First dose on Wed10/25/17 at 2000, For 60 days, Apply to back for pain. Given 10/29/2017 8:16 AM CS T Given 10/28/2017 8:40 PM AUGER MACHINE OFFBEARER Given 10/28/2017 8:51 AM AUGER MACHINE OFFBEARER oxyCODONE (ROXICODONE) immediate release tablet 5 mg, Oral, EVERY 4 HOURS PRN, Moderate Pain , Starting on Wed10/25/17 at 1600, For 60 days Given 10/29/2017 11: 19 AM AUGER MACHINE OFFBEARER 5 mg Given 10/27/2017 3:19 PM AUGER MACHINE OFFBEARER 5 mg Given 10/26/2017 12:14 PM AUGER MACHINE OFFBEARER 5 mg oxyCODONE HCl ER (OXYCONTIN) 12 hr tablet 15 mg, Oral, EVERY 12 HOURS SCHEDULED (2 times per day), First dose on Wed10/25/17 at 2100, For 60 days, Do not crush or chew. Given 10/29/2017 8:16 AM AUGER MACHINE OFFBEARER 15 mg Given 10/28/2017 8:36 PM AUGER MACHINE OFFBEARER 15 mg Given 10/28/2017 8:50 AM AUGER MACHINE OFFBEARER 15 mg oxyCODONE-acetaminophen (PERCOCET) 5-325 MG per tablet 1 tablet, Oral, EVERY 4 HOURS PRN, Moderate Pain , Starting on Wed10/25/17 at 1601, For 60 days, Maximum dose of acetaminophen is 4000 mg from all sources in 24 hours. Given 10/28/2017 1:42 PM AUGER MACHINE OFFBEARER 1 t ablet Given 10/27/2017 8:18 AM AUGER MACHINE OFFBEARER 1 tablet Given 10/26/2017 8:34 AM AUGER MACHINE OFFBEARER 1 tablet propranolol (INDERAL LA) 24 hr capsule 60 mg, Oral, DAILY, First dose on Wed10/26/17 at 0800, For 60 days, Do not crush or break. Patient must swallow this med whole. Given 10/29/2017 8:16 AM AUGER MACHINE OFFBEARER 60 mg Given 10/28/2017 8:50 AM AUGER MACHINE OFFBEARER 60 mg Given 10/27/2017 8:18 AM AUGER MACHINE OFFBEARER 60 mg documented in this encounter Active and Recently Administered Medications Times are shown in AUGER MACHINE OFFBEARER. Scheduled Medication Order 10/27/2017 10/28/2017 10/29/2017 amitriptyline (ELAVIL) tablet 75 mg, Oral, NIGHTLY, First dose on Wed10/25/17 at 2100, For 60 days 2002 (Given - Provider: Dia Stallings RN) 2035 (Given - Provider: Eri De Leon RN) baclofen (LIORESAL) tablet 10 mg, Oral, NIGHTLY, First dose on Wed10/25/17 at 2100, For 60 days 2002 (Given - Provider: Dia Stallings RN) 2035 (Given - Provider: Eri De Leon RN) DULoxetine (CYMBALTA) DR capsule (CANCELED) 60 mg, Oral, EVERY MORNING, First dose on Wed10/27/17 at 0800, For 60 days 0818 (Given - Provider: Lesley White RN) 0850 (Given - Provider: Leonard Vivas RN) 0816 (Given - Provider: Leonard Vivas, SUSANA) DULoxetine (CYMBALTA) DR capsule 30 mg, Oral, NIGHTLY, First dose (after last modification) on Wed10/26/17 at 1900, For 30 days 2002 (Given - Provider: Dia Stallings, SUSANA) 1846 (Given - Provider: Leonard Vivas, SUSANA) DULoxetine (CYMBALTA) DR capsule 60 mg, Oral, DAILY, First dose on Wed10/30/17 at 0800, For 60 days lidocaine (XYLOCAINE) 5 % ointment Topical, 2 TIMES DAILY, First dose on Wed10/25/17 at 2000, For 60 days, Apply to back for pain. 0815 (Given - Provider: Lesley White RN)2036 (Given - Provider: Dia Stallings RN) 0851 (Given - Provider: Leonard Vivas, SUSANA)2039 (Given - Provider: Eri De Leon RN) 0816 (Given - Provider: Leonard Vivas RN) oxyCODONE HCl ER (OXYCONTIN) 12 hr tablet 15 mg, Oral, EVERY 12 HOURS SCHEDULED (2 times per day), First dose on Wed10/25/17 at 2100, For 60 days, Do not crush or chew. 0818 (Given - Provider: Lesley White RN)2002 (Given - Provider: Dia Stallings RN) 0850 (Given - Provider: Lenoard Vivas, SUSANA)2035 (Given - Provider: Eri De Leon RN) 0816 (Given - Provider: Leonard Vivas, SUSANA) propranolol (INDERAL LA) 24 hr capsule 60 mg, Oral, DAILY, First dose on Wed10/26/17 at 0800, For 60 days, Do not crush or break. Patient must swallow this med whole. 0818 (Given - Provider: Lesley White RN) 0850 (Given - Provider: Leonard Vivas, SUSANA) 0816 (Given - Provider: Leonard Vivas, SUSANA) PRN Medication Order 10/27/2017 10/28/2017 10/29/2017 acetaminophen (TYLENOL) tablet 1,000 mg, Oral, 3 TIMES DAILY PRN, Mild Pain, Starting on Wed10/25/17 at 1550, For 30 days, Maximum dose of acetaminophen is 4000 mg from all sources in 24 hours. capsaicin (ZOSTRIX) 0.025 % cream Topical, 3 TIMES DAILY PRN, Mild Pain, Starting on Wed10/25/17 at 1549, For 60 days, Apply to back for pain control three times daily as needed. Avoid use on damaged, broken, or irritated skin, avoid occlusive dressings or heat. hydrOXYzine pamoate (VISTARIL) capsule 25 mg, Oral, 3 TIMES DAILY PRN, Anxiety, Indications: Sedated State, Starting on Wed10/25/17 at 1550, For 60 days oxyCODONE (ROXICODONE) immediate release tablet(Linked Group 1) 5 mg, Oral, EVERY 4 HOURS PRN, Moderate Pain , Starting on Wed10/25/17 at 1600, For 60 days 1519 (Given - Provider: Dia Stallings RN) 1119 (Given - Provider: Leonard Vivas RN) oxyCODONE-acetaminophen (PERCOCET) 5-325 MG per tablet(Linked Group 1) 1 tablet, Oral, EVERY 4 HOURS PRN, Moderate Pain , Starting on Wed10/25/17 at 1601, For 60 days, Maximum dose of acetaminophen is 4000 mg from all sources in 24 hours. 0818 (Given - Provider: Lesley White RN) 1342 (Given - Provider: Verónica Galvan) Linked Groups Order Group 1: oxyCODONE (ROXICODONE) immediate release tabletJump to med 5 mg, Oral, EVERY 4 HOURS PRN, Moderate Pain , Starting on Wed10/25/17 at 1600, For 60 days And oxyCODONE-acetaminophen (PERCOCET) 5-325 MG per tabletJump to med 1 tablet, Oral, EVERY 4 HOURS PRN, Moderate Pain , Starting on Wed10/25/17 at 1601, For 60 days, Maximum dose of acetaminophen is 4000 mg from all sources in 24 hours. documented in this encounter Care Teams Building Services Engineer Relationship Specialty Start Date End Date Stephanie Leos PA-C [address] [place] [address] PCP - General Physician Mining Analyst 10/25/17 11/24/18 documented as of this encounter
--- OUTSIDE RECORDS SUMMARY | 2024-11-23 00:47 | XMS_ITS | Encounter Summary ---
Author Organization [facility] Address [address] [place] [address] Care Team Providers Care Home Performance Laborer Name Role Phone Asael Barajas DO Primary Care Provider [phone] Encounter Details Date Type Department Care Team (Late Contact Info) Description 05/30/2024 External Device Data STL ABSTRACTION Provider, Abstract NO ADDRESS ON FILE Social History Tobacco Use Types Packs/Day Years Used Date Smoking Tobacco: Never Passive Smoke Exposure: Never Smokeless Tobacco: Never Alcohol Use Standard Drinks/Week Comments No 0 (1 standard drink = 0.6 oz pur e alcohol) Feeling Safe Answer Date Recorded Are you in a relationship wi th someone who hurts you emotionally and/or physically? No 02/04/2024 Sex and Gender Information Value Date Recorded Sex Assigned at Not on file Gender Identity Not on file Sexual Orientation Not on file documented as of this encounter Plan of Treatment Upcoming Encounters Date Type Department Care Team (Late Contact Info) Description 12/15/2024 3:20 PM TICKET CLERK Office Visit [facility] and Pain Management [address] [place] [phone] Osman Wolfe MD 139[address] [facility] 61 [facility] [address] [place] [address] documented as of this encounter Visit Diagnoses Not on filedocumented in this encounter Care Teams Home Performance Laborer Relationship Specialty Start Date End Date Asael Barajas DO 1390 [facility] [address] [place] [phone] PCP - General Internal Medicine 10/01/23 08/09/24 documented as of this encounter
--- OUTSIDE RECORDS SUMMARY | 2024-11-23 00:47 | XMS_ITS | Encounter Summary ---
Author Organization [facility] Address [address] Sim: [place] [address] Care Team Providers Care Ring Facer Name Role Phone Asael Barajas DO Primary Care Provider [phone] Encounter Details Date Type Department Care Team (Late Contact Info) Description 02/09/2024 External Device Data Initial Department [address] SIM: [place] [address] Demetrio Downing Md Social History Tobacco Use Types Packs/Day Years Used Date Smoking Tobacco: Never Passive Smoke Exposure: Never Alcohol Use Standard Drinks/Week Comments No [...] (Late Contact Info) Description 12/15/2024 3:20 PM FOREPART RASPER Office Visit [facility] Spine and Pain Management [place] [address] [place] [address] Osman Wolfe MD 1390 [facility] 61 [facility] [address] [place] [address] documented as of this encounter Visit Diagnoses Not on filedocumented in this encounter Care Teams Ring Facer Relationship Specialty Start Date End Date Asael Barajas DO 1390 [facility] 61 [facility] [address] [place] [address] PCP - General Internal Medicine 10/01/23 08/09/24 documented as of this encounter
--- OUTSIDE RECORDS SUMMARY | 2024-11-23 00:47 | XMS_ITS | Encounter Summary ---
Author Organization [facility] Address [address] Sim: [place] [address] Care Team Providers Care Human Resources Admin Name Role Phone Asael Barajas DO Primary Care Provider [phone] Encounter Details Date Type Department Care Team (Late Contact Info) Description 03/22/2024 External Device Data Initial Department [address] SIM: [place] [address] Demetrio Downing Md Social History Tobacco Use [...] (Late Contact Info) Description 12/15/2024 3:20 PM COSTUME SHOP COORDINATOR Office Visit [facility] Spine and Pain Management [place] [address] [place] [address] Osman Wolfe MD [address] [place] [address] documented as of this encounter Visit Diagnoses Not on filedocumented in this encounter Care Teams Human Resources Admin Relationship Specialty Start Date End Date Asael Barajas DO 139 [facility] [address] [address] PCP - General Internal Medicine 10/01/23 08/09/24 documented as of this encounter
--- OUTSIDE RECORDS SUMMARY | 2024-11-23 00:47 | XMS_ITS | Encounter Summary ---
Author Organization [facility] Address [address] [place] [address] Care Team Providers Care Spanish Translator Name Role Phone Asael Barajas DO Primary Care Provider [phone] Reason for Visit * Reason Onset Date Comments ADVANCED REFILL REQUEST 04/03/2024 Encounter Details Date Type Department Care Team (Late st Contact Info) Description 04/03/2024 Telephone [facility] Office [address] [place] [address], [facility] [address] [place] [address] Asael Barajas DO 1400 [facility] [address] [facility] [address] [place] [address] ADVANCED REFILL REQUEST Social History Tobacco Use Types Packs/Day Years [...] Miscellaneous Notes * Telephone Encounter - Sandy Bowman RN - 04/04/2024 9:23 AM CDT Diclofenac Last refill: 11/25/23 Last # of refills 3 Quantity: 90 Requested Prescriptions Pending Prescriptions Disp Refills diclofenac sodium 25 mg tablet,delayed release (VOLTAREN) 90 Tablet 3 Sig: Take 1 Tablet (25 mg) by mouth 3 times daily. documented in this encounter Plan of Treatment Upcoming Encounters Date Type Department Care Team (Late st Contact Info) Description 12/15/2024 3:20 PM OIL PUMPER Office Visit [facility] Spine and Pain Management [address] [place] [address] Osman Wolfe MD [address] [place], [place] [address], [place] [phone] documented as of this encounter Visit Diagnoses Diagnosis Chronic bilateral low back pain with sciatica, sciatica laterality unspecified documented in this encounter Care Teams Spanish Translator Relationship Specialty Start Date End Date Asael Barajas DO [address] [place] [address] [address] [place] [address] PCP - General Internal Medicine 10/01/23 08/09/24 documented as of this encounter
--- OUTSIDE RECORDS SUMMARY | 2024-11-23 00:47 | XMS_ITS | Clinical Summary ---
Author Organization [facility] Address [address] [facility] [address] [place] [address] Phone Care Team Providers Care Science Technicians Name Role Phone Carlos Enrique Obando MD Primary Care Provider Allergies No known active allergies Medications Medication Sig Dispensed Refills Start Date End Date Status amLODIPine (NORVASC) 10 mg tabletIndications:HTN (hypertension), benign Take 1 Tablet (10 mg) by mouth daily. 90 Tablet 1 12/27/2023 Active atorvastatin (LIPITOR) 20 mg tabletIndications:Typ e 2 diabetes mellitus without complication, without long-term current use of insulin Take 1 Tablet (20 mg) by mouth daily. 100 Tablet 3 12/28/2023 Active pregabalin (Lyrica) 75 mg CapsuleIndications:Ch ronic bilateral low back pain with sciatica, sciatica laterality unspecified Take 1 Capsule (75 mg) by mouth every 12 hours. 60 Capsule 1 02/10/2024 Active finasteride (PROSCAR) 5 mg tabletIndications:Les ign prostatic hyperplasia, unspecified whether lower urinary tract symptoms present Take 1 Tablet (5 mg) by mouth daily. 30 Tablet 3 03/30/2024 Active diclofenac sodium EC (VOLTAREN) 25 mg Tablet, Delayed Release (E.C.)Indications:Chr onic bilateral low back pain with sciatica, sciatica laterality unspecified Take 1 Tablet (25 mg) by mouth 3 times daily. 90 Tablet 2 04/04/2024 Active Active Problems Problem Noted Date Diagnosed Date HTN (hypertension), benign 10/01/2023 Arthritis 10/01/2023 Hepatic steatosis 07/28/2021 Chronic bilateral low back pain with sciatica History of left hip replacement 10/01/2016 Overview (10/01/2023): 2016 Hyperlipidemia 11/06/2015 Encounters Date Type Department Care Team Description 10/24/2024 External Device Data STL ABSTRACTION Provider, Abstract from Last 3 Months Immunizations Name Administration Dates Next Due (ADACEL/BOOSTRIX)(10 YR UP) TDAP VACCINE, 0.5ML, IM 04/16/2017 (PNEUMOVAX 23)(50 YRS UP) PN EUMOCOCCAL POLYSACCHARIDE (PPV23) 0.5 ML, IM 01/21/2018 (TENIVAC)(7 YRS UP) TETANUS AND DIPHTHERIA TOXOIDS, ADSORBED (5 LF OF TETANUS TOXOID AND 2 LF OF DIPHTHERIA TOXOID), 0.5ML (PF), IM 05/15/2010 INFLUENZA VACCINE HIGH DOSE QUADRIVALENT 65 YR UP PF IM 10/01/2023 INFLUENZA VACCINE QUADRIVALE NT 6 MOS UP PF IM 08/23/2020,09/15/2018,08/09/2017 INFLUENZA VACCINE QUADRIVALE NT ADJ 65 YR UP PF IM 09/17/2022 Influenza A (H1N1) Vaccine PF IM 08/11/2011 Influenza Vaccine Tri Adjuvanted 65+ PF IM 11/03 Influenza, Unspecified Formulation 08/13/2016,,08/16/2012 Social History Tobacco Use Types Packs/Day Years Used Date Smoking Tobacco: Never Passive Smoke Exposure: Never Smokeless Tobacco: Never Tobacco Cessation:Counseling Given: [...] Sign Reading Time Taken Comments Blood Pressure 126/80 02/10/2024 1:35 PM CDT Pulse 81 02/10/2024 1:35 PM CDT Temperature 36.3 ??C (97.4 ??F) 02/10/2024 1:35 PM CD T Respiratory Rate 16 02/10/2024 1:35 PM CDT Oxygen Saturation 94% 02/10/2024 1:35 PM CDT Inhaled Oxygen Concentration - - Weight 89.4 kg (197 lb) 02/10/2024 1:35 PM CDT Height 180.3 cm (5' 11 ) 02/10/2024 1:35 PM CDT Body Mass Index 27.48 02/10/2024 1:35 PM CDT Plan of Treatment Upcoming Encounters Date Type Department Care Team (Late st Contact Info) Description 12/15/2024 3:20 PM ASSEMBLY REPAIRER Office Visit [facility] Spine and Pain Management [place] [address] [address] [address] [place] [address] Osman Wolfe MD [address] [address] [address] [place] [address] Health Maintenance Due Date Last Done Comments DIABETES ANNUAL FOOT EXAM 1971 DIABETES ANNUAL RETINAL EXAM 1971 LDL CHOLESTEROL ANNUAL 1971 FIT-DNA Q 3 years 1998 FIT/FOBT Q 1 year 1998 Flex Sig/CT Colonography Q 5 years 1998 ZOSTER VACCINE (1 of 2) 2003 RSV VACCINE (60+ or ) (1 - Risk 60-74 years 1-dose series) 2013 PNEUMOCOCCAL VACCINE 65+ YEA RS (2 of 2 - PCV) 01/21/2019 01/21/2018 INFLUENZA VACCINE (#1) 2024 3, 09/17/2022, 08/23/2020, Additional history exists DIABETES HBA1C Q 6 MONTHS 08/06/2024 02/04/2024, 10/2024 DIABETES MICROALBUMIN ANNUAL SCREEN 12/27/2024 12/27/2023 DTAP/TDAP/TD VACCINES (2 - T d or Tdap) 04/16/2027 04/16/2017, 05/15/2010 COLORECTAL SCREENING 12/07/2028 12/07/2018 Colorectal Cancer Screening 12/07/2028 Procedures Procedure Name Priority Date/Time Associated Diagnosis Comments HEMOGLOBIN A1C Stat 02/04/2024 5:35 PM CDT MICROALBUMIN/CREATIN INE RATIO, RANDOM UR Routine 12/27/2023 3:08 PM ASSEMBLY REPAIRER HTN (hypertension), benign from Last 3 Months or Most Recently Relevant to Health Maintenance Results * (ABNORMAL) HEMOGLOBIN A1C (02/04/2024 5:35 PM CDT) HEMOGLOBIN A1C 6.8(H) <=5.6 % 02/04/2024 6:17 PM CDT [facility] EST. AVG GLUCOSE, A1C 148 mg/dL 02/04/2024 6:17 PM CDT [facility] Blood Collection / Unknown 02/04/2024 5:35 PM CDT 02/04/2024 5:57 PM CDT Narrative [facility] - 02/04/2024 6:17 PM CDT HGB A1C INTERPRETATION NORMAL: ? <5.7% PRE-DIABETES: 5.7 - 6.4% DIABETES: ? 6.5% OR GREATER Lesley Du MD CHEMISTRY ORDERA [facility] CLIA # [id number] On License Of [facility] [address] [place] [address] * MICROALBUMIN/CREATININE RATIO, RANDOM UR (12/27/2023 3:08 PM ASSEMBLY REPAIRER) Creatinine, Urine 240 20 - 320 mg/dL [facility] MICROALBUMIN, URINE 1.5 See Note: mg/dL [facility] Comment: Reference Range: Reference Range Not established MICROALBUMIN/CREAT RATIO, UR 6 <30 mcg/mg creat [facility] Comment: The ADA defines abnormalities in albumin excretion as follows: Albuminuria Category ?Result (mcg/mg creatinine) Normal to Mildly increased ?? <30 Moderately increased ? 30-299 Severely increased ? > OR = 300 The ADA recommends that at least two of three specimens collected within a 3-6 month period be abnormal before considering a patient to be within a diagnostic category. FASTING:NO FASTING: NO Test Performed at: [facility] [address] [place], [place] ??[address] Magdi Mata MD Urine URINE SPECIMEN OBTAINED BY CLEAN CATCH PROCEDURE / Unknown 12/27/2023 3:08 PM ASSEMBLY REPAIRER 12/27/2023 3:09 PM ASSEMBLY REPAIRER Asael Barajas DO URINE ORDERABLES [facility] [phone] [facility] [address] [place] [address] from Last 3 Months or Most Recently Relevant to Health Maintenance Care Teams Science Technicians Relationship Specialty Start Date End Date Carlos Enrique Obando MD [address] [place] [phone] PCP - General Family Practice 08/10/24
--- OUTSIDE RECORDS SUMMARY | 2024-11-23 00:47 | XMS_ITS | Encounter Summary ---
Author Organization [facility] Address [address] Sim: [place] [address] Care Team Providers Care Electronic Transaction Implementer Name Role Phone Asael Barajas DO Primary Care Provider Encounter Details Date Type Department Care Team (Late Contact Info) Description 02/08/2024 External Device Data Initial Department [address] SIM: [place] [address] Demetrio Downing Md Social History Tobacco Use [...] (Late Contact Info) Description 12/15/2024 3:20 PM LAWYER Office Visit [facility] Spine and Pain Management [place] [address] [place] [address] Osman Wolfe MD 1390 [facility] 61 [facility] [address] [place] [address] documented as of this encounter Visit Diagnoses Not on filedocumented in this encounter Care Teams Electronic Transaction Implementer Relationship Specialty Start Date End Date Asael Barajas DO 1390 [facility] 61 [facility] [address] [place] [address] PCP - General Internal Medicine 10/01/23 08/09/24 documented as of this encounter
--- OUTSIDE RECORDS SUMMARY | 2024-11-23 00:47 | XMS_ITS | Encounter Summary ---
Author Organization [facility] Address [address] [place] [address] Care Team Providers Care Coffee Supervisor Name Role Phone Asael Barajas DO Primary Care Provider Encounter Details Date Type Department Care Team (Late Contact Info) Description 03/07/2024 External Device Data STL ABSTRACTION Provider, Abstract [...] (Late Contact Info) Description 12/15/2024 3:20 PM INFORMATION ASSURANCE ENGINEER Office Visit [facility] Spine and Pain Management [address] [place] [phone] Osman Wolfe MD 1390 [facility] 61 [facility] [address] [place] [address] documented as of this encounter Visit Diagnoses Not on filedocumented in this encounter Care Teams Coffee Supervisor Relationship Specialty Start Date End Date Asael Barajas DO 1390 [facility] [address] [place] [phone] PCP - General Internal Medicine 10/01/23 08/09/24 documented as of this encounter
--- OUTSIDE RECORDS SUMMARY | 2024-11-23 00:47 | XMS_ITS | Encounter Summary ---
Author Organization [facility] Address [address] [place] [address] Care Team Providers Care Ballpoint Pen Cartridge Tester Name Role Phone Asael Barajas DO Primary Care Provider Encounter Details Date Type Department Care Team (Late Contact Info) Description 05/02/2024 External Device Data STL ABSTRACTION Provider, Abstract [...] (Late Contact Info) Description 12/15/2024 3:20 PM OIL FIELD EQUIPMENT MECHANIC SUPERVISOR Office Visit [facility] Spine and Pain Management [address] [place] [phone] Osman Wolfe MD 1390 [facility] 61 [facility] [address] [place] [address] documented as of this encounter Visit Diagnoses Not on filedocumented in this encounter Care Teams Ballpoint Pen Cartridge Tester Relationship Specialty Start Date End Date Asael Barajas DO 1390 [facility] [address] [place] [phone] PCP - General Internal Medicine 10/01/23 08/09/24 documented as of this encounter
--- OUTSIDE RECORDS SUMMARY | 2024-11-23 00:47 | XMS_ITS | Encounter Summary ---
Author Organization [facility] Address [address] [place] [address] Care Team Providers Care Building Manager Name Role Phone Asael Barajas DO Primary Care Provider Reason for Visit * Reason Onset Date Comments Health Leads 02/29/2024 Encounter Details Date Type Department Care Team (Late st Contact Info) Description 02/29/2024 Patient Outreach [facility] Outpatient Care [facility] - [address] Fourth Floor [place], [place] [id number] Gisel Brandt Health Leads Social History Tobacco Use Types Packs/Day Years [...] as of this encounter Progress Notes * Gisel Brandt - 02/29/2024 11:15 AM CDT Health Leads contacted patient to follow up on needs identified on Health Leads screening tool. Patient does not qualify for [employer] Assistance due to income. Health Leads did discuss paymentplan options if needed. Patient will contact Health Leads if needs help with social needs in the future. Noris Brandt, MPH Lining [employer] Sewer Health Leads documented in this encounter Plan of Treatment Upcoming Encounters Date Type Department Care Team (Late st Contact Info) Description 12/15/2024 3:20 PM INSTALLATIONS INSPECTOR Office Visit [facility] Spine and Pain Management [place] [address] [place] [address] [address] [place] [address] Osman Wolfe MD [address] [place] [address] documented as of this encounter Visit Diagnoses Not on filedocumented in this encounter Care Teams Building Manager Relationship Specialty Start Date End Date Asael Barajas DO [address] [place] [address] [address] [place] [address] PCP - General Internal Medicine 10/01/23 08/09/24 documented as of this encounter
--- OUTSIDE RECORDS SUMMARY | 2024-11-23 00:47 | XMS_ITS | Encounter Summary ---
Author Organization [facility] Address [address] [place] [address] Care Team Providers Care Wrapper Stemmer Operator Name Role Phone Asael Barajas DO Primary Care Provider Encounter Details Date Type Department Care Team (Late Contact Info) Description 02/15/2024 External Device Data STL ABSTRACTION Provider, Abstract [...] (Late Contact Info) Description 12/15/2024 3:20 PM CAR DEALER Office Visit [facility] Spine and Pain Management [address] [place] [phone] Osman Wolfe MD 1390 [facility] 61 [facility] [address] [place] [address] documented as of this encounter Visit Diagnoses Not on filedocumented in this encounter Care Teams Wrapper Stemmer Operator Relationship Specialty Start Date End Date Asael Barajas DO 1390 [facility] [address] [place] [phone] PCP - General Internal Medicine 10/01/23 08/09/24 documented as of this encounter
--- OUTSIDE RECORDS SUMMARY | 2024-11-23 00:47 | XMS_ITS | Encounter Summary ---
Author Organization [facility] Address [address] [place] [address] Care Team Providers Care Glost Kiln Placer Name Role Phone Asael Barajas DO Primary Care Provider [phone] Encounter Details Date Type Department Care Team (Late Contact Info) Description 06/06/2024 External Device Data STL ABSTRACTION Provider, Abstract [...] (Late Contact Info) Description 12/15/2024 3:20 PM METALLURGY LABORATORY TECHNICIAN Office Visit [facility] Spine and Pain Management [address] [place] [phone] Osman Wolfe MD 1390 [facility] 61 [facility] [address] [place] [address] documented as of this encounter Visit Diagnoses Not on filedocumented in this encounter Care Teams Glost Kiln Placer Relationship Specialty Start Date End Date Asael Barajas DO 1390 [facility] [address] [place] [phone] PCP - General Internal Medicine 10/01/23 08/09/24 documented as of this encounter
--- OUTSIDE RECORDS SUMMARY | 2024-11-23 00:47 | XMS_ITS | Encounter Summary ---
Author Organization [facility] Address [address] [place] [address] Care Team Providers Care Recreation Program Coordinator Name Role Phone Asael Barajas DO Primary Care Provider [phone] Reason for Visit * Reason Onset Date Comments Health Leads 02/22/2024 Encounter Details Date Type Department Care Team (Late st Contact Info) Description 02/22/2024 Patient Outreach [facility] Outpatient Care [address] Fourth Floor [place], [place] [id number] Gisel Brandt Health Leads Social History Tobacco [...] encounter Progress Notes * Gisel Brandt - 02/22/2024 11:09 AM CDT [facility] Leads attempted to call patient to discuss needs identified on Health Leads screening tool. [facility] Leads will f/u next week. Call attempt #2. Noris Brandt, MPH Charging Operator [facility] documented in this encounter Plan of Treatment Upcoming Encounters Date Type Department Care Team (Late st Contact Info) Description 12/15/2024 3:20 PM POLEYARD SUPERVISOR Office Visit [facility] Spine and Pain Management [place] [address] [place] [address] [address] [place] [phone] Osman Wolfe MD [address] [place] [address] documented as of this encounter Visit Diagnoses Not on filedocumented in this encounter Care Teams Recreation Program Coordinator Relationship Specialty Start Date End Date Asael Barajas DO [address] [place] [address] [address] [place] [phone] PCP - General Internal Medicine 10/01/23 08/09/24 documented as of this encounter
--- OUTSIDE RECORDS SUMMARY | 2024-11-23 00:47 | XMS_ITS | Encounter Summary ---
Author Organization [employer] Address [address] [place] [address] Care Team Providers Care Insurance Adjustor Name Role Phone Asael Barajas DO Primary Care Provider Reason for Referral * MRI (Routine) - Closed Specialty Diagnoses / Procedures Referred By Celine almaguer Referred To Contact Radiology Diagnoses TIA (transient ischemic attack) Procedures MRI BRAIN W WO CONTRAST Asael Barajas, [address] [address] [facility] [address] [address] Referral ID Status Reason Start Date Expiration Date Visits Re quested Visits Authorized [id number] Closed 02/14/2024 03/16/2025 1 1 Reason for Visit * MRI (Routine) - Closed Specialty Diagnoses / Procedures Referred By Celine almaguer Referred To Contact Radiology Diagnoses TIA (transient ischemic attack) Procedures MRI BRAIN W WO CONTRAST Asael Barajas, DO [address] [address] [facility] [address] [address] Referral ID Status Reason Start Date Expiration Date Visits Re quested Visits Authorized [id number] Closed 02/14/2024 03/16/2025 1 1 Encounter Details Date Type Department Care Team (Latest Contact Info) Description 03/03/2024 6:52 AM CDT - 03/03/2024 11:59 PM CDT Hospital Encounter [address] 1400 [facility] [address] [place] [address] Karl Asael, 1400 [facility] 61 [facility] [address] [place] [address] Discharge Disposition: Home or Self Care Social [...] this encounter Medications at Time of Discharge Medication Sig Dispensed Refills Start Date End Date pregabalin (Lyrica) 75 mg CapsuleIndications:Fruit Coordinator roe bilateral low back pain with sciatica, sciatica laterality unspecified Take 1 Capsule (75 mg) by mouth every 12 hours. 60 Capsule 1 02/10/2024 atorvastatin (LIPITOR) 20 mg tabletIndications:Type 2 diabetes mellitus without complication, without long-term current use of insulin Take 1 Tablet (20 mg) by mouth daily. 100 Tablet 3 12/28/2023 amLODIPine (NORVASC) 10 mg tabletIndications:HTN (hypertension), benign Take 1 Tablet (10 mg) by mouth daily. 90 Tablet 1 12/27/2023 finasteride (PROSCAR) 5 mg tabletIndications:Benig n prostatic hyperplasia, unspecified whether lower urinary tract symptoms present Take 1 Tablet (5 mg) by mouth daily. 30 Tablet 3 12/27/2023 03/29/2024 diclofenac sodium EC (VOLTAREN) 25 mg Tablet, Delayed Release (E.C.)Indications:Chron ic bilateral low back pain with sciatica, sciatica laterality unspecified Take 1 Tablet (25 mg) by mouth 3 times daily. 90 Tablet 3 11/25/2023 04/03/2024 documented as of this encounter Plan of Treatment Upcoming Encounters Date Type Department Care Team (Late st Contact Info) Description 12/15/2024 3:20 PM DATA PROCESSING SYSTEMS PROJECT PLANNER Office Visit [facility] Spine and Pain Management [place] [address] [address] [address] [place] [address] Osman Wolfe MD 1390 [facility] [address] [place] [address] documented as of this encounter Procedures Procedure Name Priority Date/Time Associated Diagnosis Comments MRI BRAIN W WO CONTRAST Routine 03/03/2024 7:59 AM CDT TIA (transient ischemic attack) documented in this encounter Results * MRI BRAIN W WO CONTRAST (03/03/2024 7:59 AM CDT) Anatomical Region Laterality Modality Head Magnetic Resonan ce 03/03/2024 8:01 AM CDT Impressions 03/03/2024 9:06 AM CDT IMPRESSION: 1. No acute intracranial abnormality. 2. Prior sinus surgery. Moderate/marked paranasal sinus mucosal thickening. 3. 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 DICTATION LOCATION: Location 2 [facility] Narrative 03/03/2024 9:06 AM CDT EXAMINATION: MAGNETIC RESONANCE IMAGING (MRI) OF THE BRAIN WITHOUT AND WITH IV CONTRAST DATE: 03/03/2024 7:59 AM HISTORY: TIA. Stroke. Follow-up. TECHNIQUE: Multiplanar multi-weighted MRI of the brain was performed without and with intravenous contrast using the standard protocol. CONTRAST INFORMATION: 18 mL ProHance. COMPARISON: None FINDINGS: PARENCHYMA AND VENTRICLES: No midline shift or mass effect. No acute or chronic intracranial hemorrhage. No parenchymal restricted diffusion. ?? Generalized parenchymal volume loss, proportional to ventricular enlargement. Patchy T2/FLAIR hyperintensity in the hemispheric white matter, likely reflecting chronic small vessel ischemia. EXTRA-AXIAL: No abnormal extra-axial collection. ENHANCEMENT: No abnormal intracranial enhancement. SOFT TISSUES: Normal. ?? SINUSES: Prior sinus surgery. Moderate/marked patchy mucosal thickening. ?? MASTOID AIR CELLS: Small effusion on the left. ORBITS: Normal. OSSEOUS STRUCTURES: Normal. 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 PITUITARY/SELLA: Normal. Procedure Note Jesús Coleman MD - 03/03/2024 EXAMINATION: MAGNETIC RESONANCE IMAGING (MRI) OF THE BRAIN WITHOUT AND WITH IV CONTRAST DATE: 03/03/2024 7:59 AM HISTORY: TIA. Stroke. Follow-up. TECHNIQUE: Multiplanar multi-weighted MRI of the brain was performed without and with intravenous contrast using the standard protocol. CONTRAST INFORMATION: 18 mL ProHance. COMPARISON: None FINDINGS: PARENCHYMA AND VENTRICLES: No midline shift or mass effect. No acute or chronic intracranial hemorrhage. No parenchymal restricted diffusion. Generalized parenchymal volume loss, proportional to ventricular enlargement. Patchy T2/FLAIR hyperintensity in the hemispheric white matter, likely reflecting chronic small vessel ischemia. EXTRA-AXIAL: No abnormal extra-axial collection. ENHANCEMENT: No abnormal intracranial enhancement. SOFT TISSUES: Normal. SINUSES: Prior sinus surgery. Moderate/marked patchy mucosal thickening. MASTOID AIR CELLS: Small effusion on the left. ORBITS: Normal. OSSEOUS STRUCTURES: Normal. 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 PITUITARY/SELLA: Normal. IMPRESSION: 1. No acute intracranial abnormality. 2. Prior sinus surgery. Moderate/marked paranasal sinus mucosal thickening. 3. 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 DICTATION LOCATION: Location - [facility] Asael Barajas DO MR ORDERABLES documented in this encounter Visit Diagnoses Diagnosis TIA (transient ischemic attack) Unspecified transient cerebral ischemia documented in this encounter Administered Medications Inactive Administered Medications - up to 3 most recent administrations Medication Order MAR Action Action Date Dose Rate Site gadoteridoL (PROHANCE) 279.3 mg/mL injection 20 mL 20 mL, IV, INTRA-PROCEDURE ONCE, 1 dose, Starting on Wed03/03/24 at 0800, Until Wed03/03/24 at 0800, Routine Contrast Given 03/03/2024 8:00 AM CDT 18 mL documented in this encounter Care Teams Insurance Adjustor Relationship Specialty Start Date End Date Asael Barajas DO [address] [phone] PCP - General Internal Medicine 10/01/23 08/09/24 documented as of this encounter
--- OUTSIDE RECORDS SUMMARY | 2024-11-23 00:47 | XMS_ITS | Encounter Summary ---
Author Organization [facility] Address [address] [place] [address] Care Team Providers Care Bed Setter Name Role Phone Asael Barajas DO Primary [...] (Late Contact Info) Description 12/15/2024 3:20 PM COMPUTER SYSTEMS ARCHITECT Office Visit [facility]3] Spine and Pain Management [address] [place] [phone] Osman Wolfe MD 1390 [facility] [address] [facility] [address] [place] [address] documented as of this encounter Visit Diagnoses Not on filedocumented in this encounter Care Teams Bed Setter Relationship Specialty Start Date End Date Asael Barajas DO 1390 [facility] [address] [place] [address] [place] [phone] PCP - General Internal Medicine 10/01/23 08/09/24 documented as of this encounter
--- OUTSIDE RECORDS SUMMARY | 2024-11-23 00:47 | XMS_ITS | Encounter Summary ---
Author Organization [facility] Address [address] [place] [address] Care Team Providers Care Marzipan Maker Name Role Phone Asael Barajas DO Primary Care Provider Encounter Details Date Type Department Care Team (Late Contact Info) Description 04/04/2024 External Device Data STL ABSTRACTION Provider, Abstract [...] (Late Contact Info) Description 12/15/2024 3:20 PM SILK BLOCKER Office Visit [facility] Spine and Pain Management [address] [place] [phone] Osman Wolfe MD 1390 [facility] 61 [facility] [address] [place] [address] documented as of this encounter Visit Diagnoses Not on filedocumented in this encounter Care Teams Marzipan Maker Relationship Specialty Start Date End Date Asael Barajas DO 1390 [facility] [address] [place] [address] [place] [phone] PCP - General Internal Medicine 10/01/23 08/09/24 documented as of this encounter
--- OUTSIDE RECORDS SUMMARY | 2024-11-23 00:47 | XMS_ITS | Encounter Summary ---
Author Organization [facility] Address [address] [place] [address] Care Team Providers Care Lpn Care Manager Name Role Phone Asael Barajas DO Primary Care Provider Reason for Visit * Reason Onset Date Comments Medication Refill 03/29/2024 Encounter Details Date Type Department Care Team (Late st Contact Info) Description 03/29/[address] [facility] Family Medicine [facility] Medical Office [address] [address], [place] [address] [place] [address] Asael Barajas DO 1400 [facility] 61 [facility] [address] [place] [address] Benign prostatic hyperplasia, unspecified whether lower urinary tract symptoms present Social History Tobacco Use Types Packs/Day [...] encounter Miscellaneous Notes * Telephone Encounter - Johanna Gimenez - 03/29/2024 2:17 PM CDT INCOMING FAX REQUEST FOR FINASTERIDE 5MG SENT TO [facility] documented in this encounter Plan of Treatment Upcoming Encounters Date Type Department Care Team (Late st Contact Info) Description 12/15/2024 3:20 PM SCUBA DIVE TRAINING INSTRUCTOR Office Visit [facility] Spine and Pain Management [place] [address] [place] [address] Osman Wolfe MD [address] [place] [phone] documented as of this encounter Visit Diagnoses Diagnosis Benign prostatic hyperplasia, unspecified whether lower urinary tract symptoms present documented in this encounter Care Teams Lpn Care Manager Relationship Specialty Start Date End Date Asael Barajas DO [facility] [address] [place] [address] PCP - General Internal Medicine 10/01/23 08/09/24 documented as of this encounter
--- OUTSIDE RECORDS SUMMARY | 2024-11-23 00:47 | XMS_ITS | Encounter Summary ---
Author Organization [facility] Address [address] [address] Sim: [place] [address] Care Team Providers Care E Commerce Merchant Name Role Phone Asael Barajas DO Primary Care Provider Encounter Details Date Type Department Care Team (Late Contact Info) Description 02/23/2024 External Device Data Initial Department [address] SIM: [place] [address] Demetrio Downing Md Social History Tobacco Use [...] (Late Contact Info) Description 12/15/2024 3:20 PM PROCESS DEVELOPER Office Visit [facility] Spine and Pain Management [place] [address] [place] [address] Osman Wolfe MD [address] [place] [address] documented as of this encounter Visit Diagnoses Not on filedocumented in this encounter Care Teams E Commerce Merchant Relationship Specialty Start Date End Date Asael Barajas DO 1397 [facility] [address] [address] PCP - General Internal Medicine 10/01/23 08/09/24 documented as of this encounter
--- OUTSIDE RECORDS SUMMARY | 2024-11-23 00:47 | XMS_ITS | Encounter Summary ---
Author Organization [facility] Address [address] Sim: [place] [address] Care Team Providers Care Pot Firer Name Role Phone Asael Barajas DO Primary Care Provider [phone] Encounter Details Date Type Department Care Team (Latest Contact Info) Description 02/04/2024 Travel Social History Tobacco Use Types Packs/Day [...] st Contact Info) Description 12/15/2024 3:20 PM ARCHITECTURAL DRAFTSMAN Office Visit [facility] Spine and Pain Management [address] [place] [address] Osman Wolfe MD [address] [place] [address] [address] [place] [address] documented as of this encounter Visit Diagnoses Not on filedocumented in this encounter Care Teams Pot Firer Relationship Specialty Start Date End Date Asael Barajas DO [address] [place] [address] [place] [address] [place] [address] PCP - General Internal Medicine 10/01/23 08/09/24 documented as of this encounter
--- OUTSIDE RECORDS SUMMARY | 2024-11-23 00:47 | XMS_ITS | Encounter Summary ---
Author Organization [facility] Address [address] [place] [address] Care Team Providers Care Cash Register Operator Name Role Phone Asael Barajas DO [...] (Late Contact Info) Description 12/15/2024 3:20 PM REAL ESTATE LAWYER Office Visit [facility] Spine and Pain Management [address] [place] [phone] Osman Wolfe MD 1390 [facility] 61 [facility] [address] [place] [address] documented as of this encounter Visit Diagnoses Not on filedocumented in this encounter Care Teams Cash Register Operator Relationship Specialty Start Date End Date Asael Barajas DO 1390 [facility] [address] [place] [address] [place] [phone] PCP - General Internal Medicine 10/01/23 08/09/24 documented as of this encounter
--- OUTSIDE RECORDS SUMMARY | 2024-11-23 00:47 | XMS_ITS | Encounter Summary ---
Author Organization [facility] Address [address] [place] [address] Care Team Providers Care Historical Records Administrator Name Role Phone Carlos Enrique Obando MD Primary Care Provider Encounter Details Date Type Department Care Team (Late Contact Info) Description 10/24/2024 External Device Data STL ABSTRACTION [...] (Late Contact Info) Description 12/15/2024 3:20 PM ELECTROENCEPHALOGRAPH TECHNOLOGIST Office Visit [facility] Spine and Pain Management [address] [place] [phone] Osman Wolfe MD [address] [place] [address] documented as of this encounter Visit Diagnoses Not on filedocumented in this encounter Care Teams Historical Records Administrator Relationship Specialty Start Date End Date Carlos Enrique Obando MD [address] [place] [address] PCP - General Family Practice 08/10/24 documented as of this encounter
--- OUTSIDE RECORDS SUMMARY | 2024-11-23 00:47 | XMS_ITS | Encounter Summary ---
Author Organization [employer] Address [address] [place] [address] Care Team Providers Care Human Resources Team Member Name Role Phone Asael Barajas DO Primary Care Provider Reason for Referral * MRI (Routine) - Closed Specialty Diagnoses / Procedures Referred By Celine almaguer Referred To Contact Radiology Diagnoses TIA (transient ischemic attack) Procedures MRI BRAIN W WO CONTRAST Asael Barajas DO [address] [address] [place] [address] [place] [address] [facility] [address] [address] Referral ID Status Reason Start Date Expiration Date Visits Re quested Visits Authorized [id number] Closed 02/14/2024 03/16/2025 1 1 Reason for Visit * Reason Onset Date Comments [employer] [facility] 02/11/2024 Encounter Details Date Type Department Care Team (Late Contact Info) Description 02/11/2024 Telephone [facility] [address] [place] [address] Josafat Barnhart, RN [facility] Connect Social History Tobacco Use Types Packs/Day Years [...] as of this encounter Miscellaneous Notes * Addendum Note - Asael Barajas DO - 02/14/2024 8:51 AM CDTAddended by: ASAEL BARAJAS on: 02/14/2024 08:51 AM Modules accepted: Orders * Telephone Encounter - Josafat Barnhart RN - 02/11/2024 5:53 PM CDT [employer] Interaction Note: Service Line: [facility] Assessment: Called patient regarding CareConnect survey response. Patient enrolled in Post Discharge program. Patient reported feeling worse. Patient states they think I'm having mini strokes. He reports having an episode this morning where I couldn't walk straight at all. The episode lasted for about one minute before all symptoms resolved on their own without treatment. He was seen in his PCP's office yesterday. He currently feeling great. He denies any unilateral sided weakness. He denies both numbness and tingling. He denies any facial droop. There is no slurred speech noted. Plan: Per epic his PCP's office is already aware of these episodes but they were asking for more information about them. Will route this note to their office. Also advised patient to call back with any newmedical concerns or questions. Discussed concerning signs/symptoms that would indicate need for repeat evaluation. If symptoms worsen patient voices understanding that he may need in person evaluation. Visit was completed by: Phone documented in this encounter Plan of Treatment Upcoming Encounters Date Type Department Care Team (Late st Contact Info) Description 12/15/2024 3:20 PM EVENT SALES ASSISTANT Office Visit [facility] Spine and Pain Management [address] [place] [address] Osman Wolfe MD [address] [address] [place] [address] [place] [phone] documented as of this encounter Results * MRI BRAIN W [...] left A1/A2 ANTHONY segments. DICTATION LOCATION: Location [address] [place] [address] 03/03/2024 9:06 AM CDT EXAMINATION: MAGNETIC RESONANCE [...] the left A1/A2 ANTHONY segments. DICTATION LOCATION: [address] Asael Barajas DO MR ORDERABLES documented in this encounter Visit Diagnoses Diagnosis TIA (transient ischemic attack)- Primary Unspecified transient cerebral ischemia TIA (transient ischemic attack) Unspecified transient cerebral ischemia documented in this encounter Care Teams Human Resources Team Member Relationship Specialty Start Date End Date Asael Barajas DO [address] [place] [phone] PCP - General Internal Medicine 10/01/23 08/09/24 documented as of this encounter
--- OUTSIDE RECORDS SUMMARY | 2024-11-23 00:47 | XMS_ITS | Encounter Summary ---
Author Organization [employer] Address [address] [place] [address] Care Team Providers Care Chemical Engineering Professor Name Role Phone Asael Barajas DO Primary Care Provider Reason for Visit * Reason Onset Date Comments [employer] [facility] 02/09/2024 Encounter Details Date Type Department Care Team (Late st Contact Info) Description 02/09/2024 Telephone [facility] [address] [place] [address] Nona Beck, RN [facility] Social History Tobacco Use Types Packs/Day Years [...] encounter Miscellaneous Notes * Telephone Encounter - Nona Beck RN - 02/09/2024 6:11 PM CDT [employer] Interaction Note: Service Line: [email or web address] Chief Complaint: pain Assessment: Called patient regarding CareConnect survey response. Patient enrolled in Post Discharge program. Patient reported feeling worse. Patient reports change to baseline. Patient states he is having pain in his neck and his back. He is having burning in his legs. The pain is not different from what he has had in the past. He used tiffany on pain medication but is no longer prescribed pain medications. Patient states he is not takingany medications for his pain. Patient states he has an appointment tomorrow with a provider and he w ill discuss his concerns at that time with his provider. A&Ox4; speaking in clear and complete sentences w/ this RN during call. Plan: Advised patient to call for new or worsening symptoms. Discussed concerning signs/symptoms that would indicate need for repeat evaluation. If symptoms worsen patient voices understanding that he may need in person evaluation. Visit was completed by: Phone documented in this encounter Plan of Treatment Upcoming Encounters Date Type Department Care Team (Late st Contact Info) Description 12/15/2024 3:20 PM SOFTWARE TEST DEVELOPER Office Visit [facility] Spine and Pain Management [address] [place] [address] Osman Wolfe MD [address] [place] [address] [address] [place] [address] documented as of this encounter Visit Diagnoses Not on filedocumented in this encounter Care Teams Chemical Engineering Professor Relationship Specialty Start Date End Date Asael Barajas DO [address] [place] [address] [address] [place] [address] PCP - General Internal Medicine 10/01/23 08/09/24 documented as of this encounter
--- OUTSIDE RECORDS SUMMARY | 2024-11-23 00:47 | XMS_ITS | Encounter Summary ---
Author Organization [facility] Address [address] [place] [address] Care Team Providers Care Chocolate Refining Roller Name Role Phone Asael Barajas DO Primary Care Provider [phone] Reason for Visit * Reason Comments Information Encounter Details Date Type Department Care Team (Late st Contact Info) Description 02/11/2024 Telephone [facility] Medicine - [facility] Office [address] [address], [facility] 1000 [place] [address] Asael Barajas DO [address] [place] [address] Information Social History Tobacco Use Types Packs/Day Years [...] encounter Miscellaneous Notes * Telephone Encounter - Asael Barajas DO - 02/11/2024 1:02 PM CDT Numbness spells? I am not sure what spells he is referring to * Telephone Encounter - Nidhi Gregorio - 02/11/2024 11:22 AM CDT Copied from [facility] #[id number]. Topic: Patient or Caregiver Communication Request >> Feb 11, 2024 11:19 AM Nidhi Ward wrote: Patient or Caregiver insisting that a message be sent to Care Team Caller: Edilberto Hawley Sr. Patient/Caregiver Callback Number: [phone] (home) Call Notes: Patient stated that he is having spells that's lasting for about 45 seconds. Patient stated that the doctor said if it happened again let him know. Please advise documented in this encounter Plan of Treatment Upcoming Encounters Date Type Department Care Team (Late st Contact Info) Description 12/15/2024 3:20 PM BOAT PATCHER PLASTIC Office Visit [facility] Spine and Pain Management [place] [address] [place] [address] [address] [place] [address] Osman Wolfe MD [address] [place] [address] documented as of this encounter Visit Diagnoses Not on filedocumented in this encounter Care Teams Chocolate Refining Roller Relationship Specialty Start Date End Date Asael Barajas DO [address] [place] [address] 1000 [place] [address] PCP - General Internal Medicine 10/01/23 08/09/24 documented as of this encounter
--- OUTSIDE RECORDS SUMMARY | 2024-11-23 00:47 | XMS_ITS | Encounter Summary ---
Author Organization [facility] Address [address] [place] [address] Care Team Providers Care Dog Pound Attendant Name Role Phone Asael Barajas DO Primary Care Provider Encounter Details Date Type Department Care Team (Late Contact Info) Description 07/18/2024 External Device Data STL ABSTRACTION Provider, Abstract [...] (Late Contact Info) Description 12/15/2024 3:20 PM NATIONAL ACCOUNT DIRECTOR Office Visit [facility] Spine and Pain Management [address] [place] [phone] Osman Wolfe MD 1390 [facility] 61 [facility] [address] [place] [address] documented as of this encounter Visit Diagnoses Not on filedocumented in this encounter Care Teams Dog Pound Attendant Relationship Specialty Start Date End Date Asael Barajas DO 1390 [facility] [address] [place] [address] [place] [phone] PCP - General Internal Medicine 10/01/23 08/09/24 documented as of this encounter
--- OUTSIDE RECORDS SUMMARY | 2024-11-23 00:47 | XMS_ITS | Encounter Summary ---
Author Organization [facility] Address [address] [place] [address] Care Team Providers Care Product Support Representative Name Role Phone Asael Barajas DO Primary [...] (Late Contact Info) Description 12/15/2024 3:20 PM FLOUR BLENDER Office Visit [facility] Spine and Pain Management [address] [place] [phone] Osman Wolfe MD 1390 [facility] 61 [facility] [address] [place] [address] documented as of this encounter Visit Diagnoses Not on filedocumented in this encounter Care Teams Product Support Representative Relationship Specialty Start Date End Date Asael Barajas DO 1390 [facility] [address] [place] [address] [place] [phone] PCP - General Internal Medicine 10/01/23 08/09/24 documented as of this encounter
--- OUTSIDE RECORDS SUMMARY | 2024-11-23 00:47 | XMS_ITS | Encounter Summary ---
Author Organization [facility] Address [address] [facility] [address] Sim: [place] [address] Care Team Providers Care Stitchdown Toe Former Name Role Phone Asael Barajas DO Primary Care Provider Encounter Details Date Type Department Care Team (Late Contact Info) Description 02/11/2024 External Device Data Initial Department [address] [facility] [address] SIM: [place] [address] Demetrio Downing Md Social History Tobacco Use [...] (Late Contact Info) Description 12/15/2024 3:20 PM INDUSTRIAL ANALYST Office Visit [facility] Spine and Pain Management [place] [address] [place] [address] Osman Wolfe MD [address] [place] [address] documented as of this encounter Visit Diagnoses Not on filedocumented in this encounter Care Teams Stitchdown Toe Former Relationship Specialty Start Date End Date Asael Barajas DO 1395 [facility] [address] [address] PCP - General Internal Medicine 10/01/23 08/09/24 documented as of this encounter
--- OUTSIDE RECORDS SUMMARY | 2024-11-23 00:47 | XMS_ITS | Encounter Summary ---
Author Organization [facility] Address [address] [place] [address] Care Team Providers Care Warhead Maintenance Specialist Name Role Phone Asael Barajas DO Primary Care Provider Reason for Visit * Reason Comments Needs Orders Written Encounter Details Date Type Department Care Team (Late st Contact Info) Description 03/13/2024 Telephone [facility] Medicine - [place] [facility] Office [address] [address], [facility] 1000 [place] [address] Asael Barajas DO [address] [place] [address] Needs Orders Written Social History Tobacco Use Types Packs/Day Years [...] encounter Miscellaneous Notes * Telephone Encounter - Lizz Hawley - 03/13/2024 11:40 AM CDT Copied from [facility] #[id number]. Topic: CPA Information Request - Order or Referral Request >> Mar 13, 2024 11:39 AM Lizz Blum wrote: Caller is requesting: New Lab Gripper Attacher Name: edilberto Patient/Caregiver Callback Number: [phone] Order: MRI Reason for Request: Needs MRI for right shoulder ,needs to look at muscles >> Mar 13, 2024 11:40 AM Lizz Blum wrote: Needs order for mri documented in this encounter Plan of Treatment Upcoming Encounters Date Type Department Care Team (Late st Contact Info) Description 12/15/2024 3:20 PM DEPARTMENT ADMINISTRATOR Office Visit [facility] Spine and Pain Management [place] [address] [place] [address] [address] [place] [address] Osman Wolef MD [address] [place] [address] documented as of this encounter Visit Diagnoses Not on filedocumented in this encounter Care Teams Warhead Maintenance Specialist Relationship Specialty Start Date End Date Asael Barajas DO [address] [place] [address] PCP - General Internal Medicine 10/01/23 08/09/24 documented as of this encounter
--- OUTSIDE RECORDS SUMMARY | 2024-11-23 00:47 | XMS_ITS | Encounter Summary ---
Author Organization [facility] Address [address] [place] [address] Care Team Providers Care Seasonal Greenery Bundler Name Role Phone Asael Barajas DO Primary Care Provider Encounter Details Date Type Department Care Team (Late Contact Info) Description 04/18/2024 External Device Data STL ABSTRACTION Provider, Abstract [...] (Late Contact Info) Description 12/15/2024 3:20 PM RETICLE PRINTER Office Visit [facility] Spine and Pain Management [address] [place] [phone] Osman Wolfe MD 1390 [facility] [address] [facility] [address] [place] [address] documented as of this encounter Visit Diagnoses Not on filedocumented in this encounter Care Teams Seasonal Greenery Bundler Relationship Specialty Start Date End Date Asael Barajas DO 1390 [facility] [address] [place] [address] [place] [phone] PCP - General Internal Medicine 10/01/23 08/09/24 documented as of this encounter
--- OUTSIDE RECORDS SUMMARY | 2024-11-23 00:47 | XMS_ITS | Encounter Summary ---
Author Organization [facility] Address [address] [place] [address] Care Team Providers Care Recruiter Name Role Phone Asael Barajas DO Primary Care Provider Reason for Visit * Reason Comments Results Patient Communication Encounter Details Date Type Department Care Team (Late st Contact Info) Description 03/06/2024 Telephone [facility] Medicine - [facility] Office [address] [address], [facility] [address] [place] [address] Asael Barajas DO [address] [place] [address] Results; Patient Communication Social History Tobacco Use Types Packs/Day Years [...] encounter Miscellaneous Notes * Telephone Encounter - Vikki Mcgrath RN - 03/06/2024 2:35 PM CDT Family is upset as ER has told patient he had a 2 CM aneurysm and nothing is mentioning that on the MRI report, besides no findings, appt made for first available appt 03/17/24, patient and will be in the discus MRI results and plan of Care * Telephone Encounter - Libby Boston - 03/06/2024 2:26 PM CDT Copied from CRM #[id number]. Topic: CPA Information Request - Patient Call Back >> Mar 06, 2024 2:22 PM Libby Crockett wrote: Caller is returning phone call from clinic. Clinic Left Note In Chart Call Notes: Patient returned call and was given message. He is not happy with the message and is requesting to speak with someone who can clarify his MRI results regarding and aneurism specifically. Tsf to backline. Patient Access Instructions 1. Provide information, follow any additional instructions left in note. 2. Update existing Telephone Encounter Note in Chart Review. 3. Select Resolve Reason and Click Close CRM. * Telephone Encounter - Vikki Mcgrath RN - 03/06/2024 12:06 PM CDT Called and unable to leave message Mailbox is full and is not accepting messages at this time x1 Call Center please give patient results from Dr Barajas. MRI Results Per Dr Barajas Your brain MRI looks pretty good. No signs of strokes, although small mini strokes typically do notshow up on MRIs. If you continue to have symptoms let us know we will try to do some more investigation * Telephone Encounter - Christiana Hurtado - 03/06/2024 11:18 AM CDT Copied from CRM #[id number]. Topic: CPA Information Request - Results >> Mar 06, 2024 11:16 AM Christiana Bolivar wrote: Caller is requesting information about results from an order. ? Caller Name: Edilberto Callback Number: [phone] (home) Test Name: MRI Results are: Call Notes: Please call Edilberto back with results documented in this encounter Plan of Treatment Upcoming Encounters Date Type Department Care Team (Late st Contact Info) Description 12/15/2024 3:20 PM LOCATION AND MEASUREMENT TECHNICIAN Office Visit [facility] Spine and Pain Management [place] [address] [place] [phone] Osman Wolfe MD [address] [place] [phone] documented as of this encounter Visit Diagnoses Not on filedocumented in this encounter Care Teams Recruiter Relationship Specialty Start Date End Date Asael Barajas DO [address] [place] [address] PCP - General Internal Medicine 10/01/23 08/09/24 documented as of this encounter
--- OUTSIDE RECORDS SUMMARY | 2024-11-23 00:47 | XMS_ITS | Encounter Summary ---
Author Organization [facility] Address [address] [place] [address] Care Team Providers Care Cobol Application Developer Name Role Phone Asael Barajas DO Primary Care Provider Reason for Visit * Reason Comments Headache Patient went [facility] after then patient is in so much pain patient state he is not able to hold his head strait Patient also said that he got off his pain med's also said that his previous provider told him that he will have to be on pain med's for the rest of this life for his back neck pain Patient also said that he have nose infarction Extremity Weakness Patient believe he h ad stroke Encounter Details Date Type Department Care Team (Late st Contact Info) Description 02/10/2024 2:00 PM CDT Office Visit [facility] Office [address] [place] [address] Asael Barajas DO [address] [place] [address] Brain aneurysm (Primary Dx); Chronic bilateral low back pain with sciatica, sciatica laterality unspecified Social History Tobacco Use Types Packs/Day Years [...] Mass Index 27.48 02/10/2024 1:35 PM CDT documented in this encounter Progress Notes * Asael Barajas, - 02/10/2024 2:06 PM CDT Assessment/Plan: Edilberto Hawley Sr. is a 68 y.o. male presenting for: # ER follow-up -1 week ago he woke up with hand tingling up his arms. BP was 198/139 -this slowly improved, but the numbness continued -Went to the ER on 02/03 due to pain in his neck and numbness. CTA found a 1-2 mm aneurysm, otherwise no acute findings -States his symptoms have resolved at this time -Discussed getting an MRI to further evaluate for possible previous stroke, patient declined. We discussed his aneurysm in depth today. Given the small size no need for acute intervention. He was advised to monitor his blood pressure closely at home and call if elevated # Neck pain -pain is currently on R neck down in to the shoulder. Some associated bilateral arm numbness intermittently -Pain is chronic in nature, previously following with pain management, but has been unable to see in sometime -Currently on Lyrica 50 mg twice a day -MRI 2020 with multilevel DDD and numerous disc bulges and protrusions -Discussed numerous treatment options today. Patient would like to increase his Lyrica to 75 mg twice a day while he tries to get into his old pain management physician -Medications and options explained to include common side effects. Understanding of medications, course, diagnosis, and expectations were expressed by patient/guardian. FOLLOW UP Data Unavailable Edilberto was seen today for headache and extremity weakness. Diagnoses and all orders for this visit: Brain aneurysm Chronic bilateral low back pain with sciatica, sciatica laterality unspecified - pregabalin (Lyrica) 75 mg Capsule; Take 1 Capsule (75 mg) by mouth every 12 hours. Exam/Objective: Vitals: 02/10/24 1335 BP: 126/80 BP Location: Right arm Patient Position (BP): Sitting BP Cuff Size: Large Adult Pulse: 81 Resp: 16 Temp: 97.4 ??F (36.3 ??C) TempSrc: Temporal SpO2: 94% Weight: 89.4 kg (197 lb) Height: 5' 11 (1.803 m) Body mass index is 27.48 kg/m??. General appearance: Alert, cooperative, no acute distress Head: Normocephalic, atraumatic Eyes: Conjunctivae/corneas cooper Ears: Hearing grossly normal. Heart: regular rate and rhythm, no murmur Lungs: Breath sounds equal, clear to auscultation bilaterally, no wheezing, normal respiratory effort Abdomen: soft, non-tender. Skin: No rashes or lesions noted Extremities: No BLE edema Asael Barajas DO 02/10/2024 [facility] MEDICINE - [place] [id number] [address] Portions of this encounter may have been generated with Pb Naturally Speaking and could containinadvertent errors. Every effort has been made to proof read and avoid such errors. documented in this encounter Miscellaneous Notes * Patient Instructions - Asael Barajas DO - 02/10/2024 2:29 PM CDT Stop Lyrica 50mg, Start Lyrica 75mg documented in this encounter Plan of Treatment Upcoming Encounters Date Type Department Care Team (Late st Contact Info) Description 12/15/2024 3:20 PM HOUSE VISITOR Office Visit [facility] Spine and Pain Management [place] [address] [place] [address] Osman Wolfe MD [address] [place] [address] documented as of this encounter Visit Diagnoses Diagnosis Brain aneurysm- Primary Cerebral aneurysm, nonruptured Chronic bilateral low back pain with sciatica, sciatica laterality unspecified documented in this encounter Care Teams Cobol Application Developer Relationship Specialty Start Date End Date Asael Barajas DO [address] [place] [address] PCP - General Internal Medicine 10/01/23 08/09/24 documented as of this encounter
--- OUTSIDE RECORDS SUMMARY | 2024-11-23 00:47 | XMS_ITS | Encounter Summary ---
Author Organization [facility] Address [address] Sim: [place] [address] Care Team Providers Care Transportation Job Titles Name Role Phone Asael Barajas DO Primary Care Provider [phone] Encounter Details Date Type Department Care Team (Late Contact Info) Description 02/19/2024 External Device Data Initial Department [address] SIM: [place] [address] Demetrio Downing Md Social History Tobacco Use [...] (Late Contact Info) Description 12/15/2024 3:20 PM HEART COORDINATOR Office Visit [facility] Spine and Pain Management [place] [address] [place] [address] Osman Wolfe MD [address] [place] [address] documented as of this encounter Visit Diagnoses Not on filedocumented in this encounter Care Teams Transportation Job Titles Relationship Specialty Start Date End Date Asael Barajas DO 139 [facility] [address] [address] PCP - General Internal Medicine 10/01/23 08/09/24 documented as of this encounter
--- OUTSIDE RECORDS SUMMARY | 2024-11-23 00:47 | XMS_ITS | Encounter Summary ---
Author Organization [facility] Address [address] [place] [address] Care Team Providers Care Textile Machine Mechanic Name Role Phone Asael Barajas DO Primary Care Provider Encounter Details Date Type Department Care Team (Late Contact Info) Description 03/28/2024 External Device Data STL ABSTRACTION Provider, Abstract [...] (Late Contact Info) Description 12/15/2024 3:20 PM DIESEL RETROFIT INSTALLER Office Visit [facility] Spine and Pain Management [address] [place] [phone] Osman Wolfe MD 1390 [facility] [address] [facility] [address] [place] [address] documented as of this encounter Visit Diagnoses Not on filedocumented in this encounter Care Teams Textile Machine Mechanic Relationship Specialty Start Date End Date Asael Barajas DO 1390 [facility] [address] [place] [phone] PCP - General Internal Medicine 10/01/23 08/09/24 documented as of this encounter
--- OUTSIDE RECORDS SUMMARY | 2024-11-23 00:47 | XMS_ITS | Encounter Summary ---
Author Organization [facility] Address [address] [place] [address] Care Team Providers Care On Call Pharmacy Technician Name Role Phone Asael Barajas DO Primary Care Provider Encounter Details Date Type Department Care Team (Late Contact Info) Description 02/08/2024 External Device Data STL ABSTRACTION Provider, Abstract [...] (Late Contact Info) Description 12/15/2024 3:20 PM COMMERCIAL TIRE SERVICE TECHNICIAN Office Visit [facility] Spine and Pain Management [address] [place] [phone] Osman Wolfe MD 1390 [facility] [address] [place] [address] documented as of this encounter Visit Diagnoses Not on filedocumented in this encounter Care Teams On Call Pharmacy Technician Relationship Specialty Start Date End Date Asael Barajas DO [address] [place] [address] PCP - General Internal Medicine 10/01/23 08/09/24 documented as of this encounter
--- OUTSIDE RECORDS SUMMARY | 2024-11-23 00:47 | XMS_ITS | Encounter Summary ---
Author Organization [facility] Address [address] [place] [address] Care Team Providers Care Telesales Consultant Name Role Phone Asael Barajas DO Primary Care Provider Encounter Details Date Type Department Care Team (Late Contact Info) Description 05/16/2024 External Device Data STL ABSTRACTION Provider, Abstract [...] (Late Contact Info) Description 12/15/2024 3:20 PM WELDER APPRENTICE Office Visit [facility] Spine and Pain Management [address] [place] [phone] Osman Wolfe MD 1390 [facility] [address] [facility] [address] [place] [address] documented as of this encounter Visit Diagnoses Not on filedocumented in this encounter Care Teams Telesales Consultant Relationship Specialty Start Date End Date Asael Barajas DO 1390 [facility] [address] [place] [phone] PCP - General Internal Medicine 10/01/23 08/09/24 documented as of this encounter
--- OUTSIDE RECORDS SUMMARY | 2024-11-23 00:48 | XMS_ITS | Encounter Summary ---
Author Organization [facility] Address [address] [place] [address] Care Team Providers Care Neck Cutter Name Role Phone Asael Barajas DO Primary Care Provider Encounter Details Date Type Department Care Team (Late Contact Info) Description 11/23/2023 External Device Data STL ABSTRACTION Provider, Abstract [...] (Late Contact Info) Description 12/15/2024 3:20 PM WEB CONTENT COORDINATOR Office Visit [facility] Spine and Pain Management [address] [place] [phone] Osman Wolfe MD [address] [place] [address] documented as of this encounter Visit Diagnoses Not on filedocumented in this encounter Care Teams Neck Cutter Relationship Specialty [place] [address] [place] [address] [address] [place] [phone] PCP - General Internal Medicine 10/01/23 08/09/24 documented as of this encounter
--- OUTSIDE RECORDS SUMMARY | 2024-11-23 00:48 | XMS_ITS | Encounter Summary ---
Author Organization [facility] Address [address] [place] [address] Care Team Providers Care Sales Consultant Insurance Name Role Phone Asael Barajas DO Primary Care Provider Encounter Details Date Type Department Care Team (Late Contact Info) Description 01/18/2024 External Device Data STL ABSTRACTION Provider, Abstract [...] (Late Contact Info) Description 12/15/2024 3:20 PM PHYS ASST Office Visit [facility] Spine and Pain Management [address] [place] [address] [place] [phone] Osman Wolfe MD [address] [place] [phone] documented as of this encounter Visit Diagnoses Not on filedocumented in this encounter Care Teams Sales Consultant Insurance Relationship Specialty [place] [address] [place] [address] [address] [place] [address] PCP - General Internal Medicine 10/01/23 08/09/24 documented as of this encounter
--- OUTSIDE RECORDS SUMMARY | 2024-11-23 00:48 | XMS_ITS | Encounter Summary ---
Author Organization [facility] Address [address] [place] [address] Care Team Providers Care Medical Administrative Name Role Phone Asael Barajas DO Primary Care Provider [phone] Reason for Referral * Eval and Treat (Routine) - Closed Specialty Diagnoses / Procedures Referred By Celine almaguer Referred To Contact Pain Management Diagnoses Left wrist pain Procedures CT OFFICE/OUTPATIENT ESTABLISHED MOD MDM 30-[address] OFFICE/OUTPATIENT NEW MODERATE MDM 45-59 MINUTES Asael Barajas DO [address] [place] [address] Referral ID Status Reason Start Date Expiration Date Visits Re quested Visits Authorized [id number] Closed 10/01/2023 09/30/2024 1 1 RANCE ASSOCIATE Reason for Visit * Reason Comments Establish Care Annual Wellness Visit (Medicare) Encounter Details Date Type Department Care Team (Late st Contact Info) Description 10/01/2023 11:00 AM ASSURANCE ASSOCIATE Office Visit [facility] - [facility] [address] [address], [email or web address] [address] [place] [address] Asael Barajas DO [address] [place] [address] HTN (hypertension), benign (Primary Dx); Screening for colorectal cancer; Need for influenza vaccination; Left wrist pain Social History Tobacco Use Types Packs/Day Years Used Date Smoking Tobacco: Never Passive Smoke Exposure: Never Tobacco Cessation:Counseling Given: No Alcohol Use Standard Drinks/Week Comments No 0 (1 standard drink = 0.6 oz pur e alcohol) Sex and Gender Information Value Date Recorded Sex Assigned at Not on file Gender Identity Not on file Sexual Orientation Not on file documented as of this encounter Last Filed Vital Signs Vital Sign Reading Time Taken Comments Blood Pressure 125/81 10/01/2023 11:01 AM ASSURANCE ASSOCIATE Pulse 71 10/01/2023 11:01 AM ASSURANCE ASSOCIATE Temperature 36.4 ??C (97.5 ??F) 10/01/2023 11:[address] Respiratory Rate 16 10/01/2023 11:01 AM ASSURANCE ASSOCIATE Oxygen Saturation 100% 10/01/2023 11:01 AM ASSURANCE ASSOCIATE Inhaled Oxygen Concentration - - Weight 85.7 kg (189 lb) 10/01/2023 11:01 AM ASSURANCE ASSOCIATE Height 180.3 cm (5' 11 ) 10/01/2023 11:01 AM ASSURANCE ASSOCIATE Body Mass Index 26.36 10/01/2023 11:01 AM ASSURANCE ASSOCIATE documented in this encounter Progress Notes * Asael Barajas DO - 10/01/2023 11:19 AM CST Assessment/Plan: Edilberto Hawley Bryanna is a 68 y.o. male presenting for: #L wrist pain/swelling -intermittently getting injections and fluid drainage in the L wrist -interested in seeing a new pain management physician for possible injections -pain management referral #Throat issues -states he gets a lot of throat pain and severe coughing if he eats any salt -if he pushes up under his chin he can taste a salty sensation in the throat -has been taking 4 zantac with some relief -will continue to monitor at this time #HTN -125/81 -On amlodipine -stable, monitor -Medications and options explained to include common side effects. Understanding of medications, course, diagnosis, and expectations were expressed by patient/guardian. FOLLOW UP Return in about 6 months (around 03/31/2024). Edilberto was seen today for establish care and annual wellness visit (medicare). Diagnoses and all orders for this visit: HTN (hypertension), benign Screening for colorectal cancer - COLON CANCER SCREEN, STOOL DNA; Future - COLON CANCER SCREEN, STOOL DNA Need for influenza vaccination - INFLUENZA VACCINE HIGH DOSE QUADRIVALENT 65 YR UP PF IM Left wrist pain - AMB REFERRAL TO PAIN CLINIC Exam/Objective: Vitals: 10/01/23 1101 BP: 125/81 BP Location: Right arm Patient Position (BP): Sitting BP Cuff Size: Large Adult Pulse: 71 Resp: 16 Temp: 97.5 ??F (36.4 ??C) TempSrc: Temporal SpO2: 100% Weight: 85.7 kg (189 lb) Height: 5' 11 (1.803 m) Body mass index is 26.36 kg/m??. General appearance: Alert, cooperative, no acute distress Head: Normocephalic, atraumatic Eyes: Conjunctivae/corneas cooper Ears: Hearing grossly normal. Heart: regular rate and rhythm, no murmur Lungs: Breath sounds equal, clear to auscultation bilaterally, no wheezing, normal respiratory effort Abdomen: soft, non-tender. Skin: No rashes or lesions noted Extremities: No BLE edema Asael Barajas DO 10/01/2023 [facility] - [address] [address] Portions of this encounter may have been generated with Pb Naturally Speaking and could containinadvertent errors. Every effort has been made to proof read and avoid such errors. RANCE ASSOCIATE documented in this encounter Miscellaneous Notes * Patient Instructions - Asael Barajas DO - 10/01/2023 11:38 AM ASSURANCE ASSOCIATE Contact Referral Center: [phone] --pain management RANCE ASSOCIATE documented in this encounter Plan of Treatment Upcoming Encounters Date Type Department Care Team (Late st Contact Info) Description 12/15/2024 3:20 PM ASSURANCE ASSOCIATE Office Visit [facility] Spine and Pain Management [place] [address] [address] [place] [address] Osman Wolfe MD [address] [place] [address] Scheduled Referrals Name Type Priority Associated Diagnoses Orde r Schedule AMB REFERRAL TO PAIN CLINIC Outpatient Referral Routine Left wrist pain Ordered: 10/01/2023 documented as of this encounter Visit Diagnoses Diagnosis HTN (hypertension), benign- Primary Essential hypertension, benign Screening for colorectal cancer Special screening for malignant neoplasms, colon Need for influenza vaccination Need for prophylactic vaccination and inoculation against influenza Left wrist pain Pain in joint, forearm documented in this encounter Care Teams Medical Administrative Relationship Specialty Start Date End Date Asael Barajas DO [facility] [address] [place] [phone] PCP - General Internal Medicine 10/01/23 08/09/24 documented as of this encounter
--- OUTSIDE RECORDS SUMMARY | 2024-11-23 00:48 | XMS_ITS | Encounter Summary ---
Author Organization [facility] Address [address] [place] [address] Care Team Providers Care Food And Beverage Service Manager Name Role Phone Asael Barajas DO Primary Care Provider [phone] Reason for Visit * Reason Comments Clinical Consult Before Scheduling Encounter Details Date Type Department Care Team (Late st Contact Info) Description 02/04/2024 Telephone [facility] Medicine - [facility] Office [address] [place] [address] [address], [facility] [address] [place] [address] Asael Barajas DO [address] [place] [address] Clinical Consult Before Scheduling Social History Tobacco Use Types Packs/Day Years [...] encounter Miscellaneous Notes * Telephone Encounter - Tamar Cespedesnettiejannette Bon - 02/04/2024 2:38 PM CDT Pt reports he has had trouble knowing what day it is blood pressure was high, today it is 137/77. Could not remember his name. Face drooped when smiling. Fatigue, soiled himself. Pt believes he had astroke and is going to the ED today. * Telephone Encounter - Isreal Franks - 02/04/2024 2:29 PM CDT Copied from [facility] #[id number]. Topic: Symptomatic Care >> Feb 04, 2024 2:25 PM Isreal Gaytan wrote: Caller has new symptoms and is seeking care. Age Range/Symptom: Adult: 18+ - New Onset Impaired Speech, one side of face drooping, loss of sensation, numbness, or paralysis Caller Name: Edilberto Hawley Sr. Callback Number: [phone] Call Notes: Patient believes he had a stroke , tingling feeling throughout body, urinating all over self , couldn't state name, address, phone number etc. Patient does not feel well, disoriented , blood pressure and heart rate was high. Patient stated his face, hands , arms ,etc felt numb as if though his entire body was asleep. Patient is wanting to be seen at providers office , but alsocontinues to mention a ER. documented in this encounter Plan of Treatment Upcoming Encounters Date Type Department Care Team (Late st Contact Info) Description 12/15/2024 3:20 PM SECRETARY ADMINISTRATIVE ASSISTANT Office Visit [facility] Spine and Pain Management [place] [address] [place] [address] [address] [place] [phone] Osman Wolfe MD [address] [place] [address] documented as of this encounter Visit Diagnoses Not on filedocumented in this encounter Care Teams Food And Beverage Service Manager Relationship Specialty Start Date End Date Asael Barajas DO [facility] [address] [place] [address] PCP - General Internal Medicine 10/01/23 08/09/24 documented as of this encounter
--- OUTSIDE RECORDS SUMMARY | 2024-11-23 00:48 | XMS_ITS | Encounter Summary ---
Author Organization [facility] Address [address] [place] [address] Care Team Providers Care Elevator Mechanic Apprentice Name Role Phone Asael Barajas Primary Care Provider Reason for Visit * Reason Onset Date Comments Wants Appt 10/05/2023 Encounter Details Date Type Department Care Team (Late st Contact Info) Description 10/05/2023 Telephone [facility] [address] [phone] Mc Zavala MD [address] [place] [phone] Wants Appt Social History Tobacco Use Types Packs/Day Years [...] encounter Miscellaneous Notes * Telephone Encounter - Day Motley PCT - 10/05/2023 1:11 PM CST NEW PATIENT SCREENING ENCOUNTER [facility] Referral Diagnosis/Chief Complaint: neck/LUE pain How long has pain been present? Since 2009 Insurance: [facility] Medicare Have you seen previous pain management in the last 2-3 years? Yes, if yes which provider: [address] [place] [address] Spine and Joint( [facility] ) TPI's 05/15/21 Cevical Inj-07/03/21,08/27/21 We are a non-opioid prescribing pain practice. We do not prescribe, nor take over any other physicians??? prescriptions for opioids. We also do not handle ANY permanent disability requests. Would youstill like to proceed? Yes This practice does NOT complete any Short Term Disability or Mcc Disability requests. Is thisgoing to be an issue for you? no Have the patient been seen by our providers in past? No Is patient established with a PCP? Yes If NO, will need to establish care with PCP prior to scheduling. Is patient a diabetic? No Any previous imaging related to reason being seen outside of [facility]? No Is this a MVA or work/personal injury case? No Is this in active litigation? No What location would they like to be seen for consult? [facility] [place] Have you completed 4-6 weeks of conservative treatment (PT, Physician directed HEP, Chiropractor, etc) for this condition in the last year? No Patient will contact [facility] in [facility] to have them place all images pertaining to the Neck, shoulder and back on a disk. Patient given our address and advised patient once disk received we will call and schedule NPC. Patient voiced understanding. TROENCEPHALOGRAPH TECHNOLOGIST documented in this encounter Plan of Treatment Upcoming Encounters Date Type Department Care Team (Late st Contact Info) Description 12/15/2024 3:20 PM ELECTROENCEPHALOGRAPH TECHNOLOGIST Office Visit [facility] [place] [address] [place] [phone] Osman Wolfe MD [address] [place] [phone] documented as of this encounter Visit Diagnoses Not on filedocumented in this encounter Care Teams Elevator Mechanic Apprentice Relationship Specialty Start Date End Date Asael Barajas DO [address] [place] [phone] PCP - General Internal Medicine 10/01/23 08/09/24 documented as of this encounter
--- OUTSIDE RECORDS SUMMARY | 2024-11-23 00:48 | XMS_ITS | Encounter Summary ---
Author Organization [email or web address] [facility] Address [address] [place] [address] Care Team Providers Care Educational Psychology Teacher Name Role Phone Asael Barajas DO Primary Care Provider [phone] Reason for Visit * Reason Comments Numbness Numbness and tinglin g since 4 am 2 days ago. Had some diarrhea. Thought he had a Stroke because he urinated all over himself. * Auth/Cert (Routine) Specialty Diagnoses / Procedures Referred By Celine almaguer Referred To Contact [facility] [address] [address] Referral ID Status Reason Start Date Expiration Date Visits Re quested Visits Authorized [id number] 1 1 Encounter Details Date Type Department Care Team (Late st Contact Info) Description 02/04/2024 4:06 PM CDT - 02/04/2024 7:51 PM CDT Emergency [facility] [address] [address] Pascual Mayers MD [address] [address] Numbness and tingling (Primary Dx) Discharge Disposition: Home or Self Care Social [...] Sign Reading Time Taken Comments Blood Pressure 123/90 02/04/2024 7:00 PM CDT Pulse 76 02/04/2024 7:00 PM CDT Temperature 36.7 ??C (98 ??F) 02/04/2024 4:02 PM CDT Respiratory Rate 20 02/04/2024 7:00 PM CDT Oxygen Saturation 94% 02/04/2024 7:00 PM CDT Inhaled Oxygen Concentration - - Weight 90.3 kg (199 lb) 02/04/2024 4:02 PM CDT Height 180.3 cm (5' 11 ) 02/04/2024 4:02 PM CDT Body Mass Index 27.75 02/04/2024 4:02 PM CDT documented in this encounter Discharge Instructions * Discharge Instructions* Pascual Mayers MD - 02/04/2024 7:16 PM CDT Your CAT scans did not show significant vascular disease. Your blood work was unremarkable. Follow-up with Dr Barajas. Return to the ED for worsening symptoms. I strive to take your healthcare seriously and provide you with excellent service as my patient, making it my #1 priority. You may receive a survey after your visit today. If you cannot rate your experience as excellent, then please let us know how we can do a better job in caring for you and meeting whatever needs you may have. If you have any questions, please call . We are not changing your home medications; maintain your medications at the current doses. If we have given you additional medications, take as directed. * Attachments The following attachments cannot be sent through Care Everywhere. * Numbness and Tingling ([place]) documented in this encounter Medications at Time of Discharge Medication Sig Dispensed Refills Start Date End Date atorvastatin (LIPITOR) 20 mg tabletIndications:Type 2 diabetes [...] mouth daily. 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 60 Capsule 1 12/27/2023 02/10/2024 diclofenac sodium EC (VOLTAREN) 25 mg Tablet, Delayed Release (E.C.)Indications:Chron ic bilateral low back pain with sciatica, sciatica laterality unspecified Take 1 Tablet (25 mg) by mouth 3 times daily. 90 Tablet 3 11/25/2023 04/03/2024 documented as of this encounter ED Notes * Noelle Bell RN - 02/04/2024 4:05 PM CDT Code stroke not activated. Dr. Chawla called and CT ordered. Taken to radiology before room placement. * Pascual Mayers MD - 02/04/2024 3:54 PM CDT HISTORY OF PRESENT ILLNESS Edilberto Hawley Sr., a 68 y.o. male presents to the ED with a Chief Complaint of Numbness Subjective Physician at bedside: 1700 Edilberto Hawley Sr. is a 68 y.o. male, with past medical history of arthritis, chronic back pain, and GERD, who presents to the emergency department with numbness which began at 0400 two days ago. The patient complains of numbness and tingling in all four extremities and in his face. He reports having a headache, diarrhea, and one episode of bladder incontinence during that time. He notes his BPduring that time was 198/134. The patient reports having difficulty balancing while ambulating since the numbness episode occurred. Per patient's , the patient saw his chiropractor earlier today and had his neck and back adjusted. The patient denies having a cough abnormal from baseline. He denies a history of heart attacks or stroke. PCP: Asael Barajas, REVIEW OF SYSTEMS Review of Systems Constitutional: Negative for chills and fever. HENT: Negative for congestion and sore throat. Eyes: Negative for pain, discharge and redness. Respiratory: Negative for apnea, cough, chest tightness, shortness of breath and wheezing. Cardiovascular: Negative for chest pain and palpitations. Gastrointestinal: Positive for diarrhea. Negative for abdominal pain, blood in stool, constipation,nausea and vomiting. Genitourinary: Negative for difficulty urinating, dysuria, flank pain, frequency, hematuria and urgency. Musculoskeletal: Negative for back pain, joint swelling and neck pain. Skin: Negative for color change and rash. Allergic/Immunologic: Negative for immunocompromised state. Neurological: Positive for numbness and headaches. Negative for dizziness, tremors, syncope, facialasymmetry, speech difficulty, weakness and light-headedness. Hematological: Negative for adenopathy. Psychiatric/Behavioral: Negative for confusion, hallucinations and suicidal ideas. The patient is not nervous/anxious. PAST MEDICAL HISTORY REVIEWED MEDICAL: Patient has a past medical history of Arthritis, Back pain, chronic, and GERD (gastroesophageal reflux disease). SURGICAL: Patient has a past surgical history that includes shoulder surgery and chg anes forearm/wrist surgery unlisted. FAMILY: Patient's family history is not on file. SOCIAL: reports that he has never smoked. He has never been exposed to tobacco smoke. He does not have any smokeless tobacco history on file. He reports that he is not currently sexually active. He reports that he does not drink alcohol and does not use drugs. No history on file. Social History Other Topics Concern Not on file ALLERGIES Patient has no known allergies. HOME MEDICATIONS Discharge Medication List as of 02/04/2024 7:42 PM CONTINUE these medications which have NOT CHANGED Details atorvastatin (LIPITOR) 20 mg tablet Take 1 Tablet (20 mg) by mouth daily., Disp- 100 Tablet, R-3 finasteride (PROSCAR) 5 mg tablet Take 1 Tablet (5 mg) by mouth daily., Disp-30 Tablet, R-3 amLODIPine (NORVASC) 10 mg tablet Take 1 Tablet (10 mg) by mouth daily., Disp-90 Tablet, R-1 pregabalin (Lyrica) 50 mg Capsule Take 1 Capsule (50 mg) by mouth every 12 hours., Disp-60 Capsule,R-1 diclofenac sodium EC (VOLTAREN) 25 mg Tablet, Delayed Release (E.C.) Take 1 Tablet (25 mg) by mouth3 times daily., Disp-90 Tablet, R-3 amitriptyline (ELAVIL) 75 mg tablet Take 1 Tablet (75 mg) by mouth daily at bedtime., Disp-90 Tablet, R-1 Objective PHYSICAL EXAM INITIAL VS BP: 115/89 (02/04/24 1602), Heart Rate: 93 bpm (02/04/24 1602), Resp: 20 (02/04/24 1602), Pulse: 93(02/04/24 1602), Temp: 98 ??F (36.7 ??C) (02/04/24 1602), Temp src: Skin (02/04/24 1602), SpO2: 94 % (02/04/24 1602), Height: 5' 11 (180.3 cm) (02/04/24 1602), Weight: 90.3 kg (199 lb) (02/04/24 1602), BMI (Calculated): (!) 27.77 (02/04/24 1602) No LMP for male patient. Physical Exam Vitals and nursing note reviewed. Constitutional: General: He is not in acute distress. Appearance: He is well-developed. HENT: Head: Normocephalic and atraumatic. Right Ear: External ear normal. Left Ear: External ear normal. Nose: Nose normal. Mouth/Throat: Mouth: Mucous membranes are moist. Pharynx: Oropharynx is clear. Eyes: Conjunctiva/sclera: Conjunctivae normal. Pupils: Pupils are equal, round, and reactive to light. Neck: Trachea: No tracheal deviation. Cardiovascular: Rate and Rhythm: Normal rate and regular rhythm. Heart sounds: Normal heart sounds. No murmur heard. No friction rub. No gallop. Pulmonary: Effort: Pulmonary effort is normal. No respiratory distress. Breath sounds: Normal breath sounds. No stridor. No wheezing or rales. Chest: Chest wall: No tenderness. Abdominal: General: Bowel sounds are normal. There is no distension. Palpations: Abdomen is soft. Tenderness: There is no abdominal tenderness. There is no guarding. Musculoskeletal: General: No tenderness. Normal range of motion. Cervical back: Normal range of motion and neck supple. Comments: Anterior thigh numbness Lymphadenopathy: Cervical: No cervical adenopathy. Skin: General: Skin is warm and dry. Capillary Refill: Capillary refill takes less than 2 seconds. Findings: No erythema or rash. Neurological: General: No focal deficit present. Mental Status: He is alert and oriented to person, place, and time. Mental status is at baseline. Cranial Nerves: No cranial nerve deficit. Sensory: No sensory deficit. Motor: No weakness or abnormal muscle tone. Psychiatric: Behavior: Behavior normal. Thought Content: Thought content normal. DIAGNOSTICS LAB: CBC WITH DIFFERENTIAL - Abnormal Result Value WBC 9.7 RBC 5.31 HEMOGLOBIN 17.3 (*) HEMATOCRIT 49.7 MCV 93.6 MCH 32.6 MCHC 34.8 RDW 11.7 RDW-STDEV 40.3 PLATELETS 235 MPV 10.1 NEUTROPHILS 64 LYMPHOCYTES 25 MONOCYTES 8 EOSINOPHILS 3 BASOPHILS 0 IMMATURE GRANULOCYTES 0 NEUTROPHIL ABSOLUTE 6.20 LYMPHOCYTE ABSOLUTE 2.44 MONOCYTE ABSOLUTE 0.78 EOSINOPHIL ABSOLUTE 0.24 BASOPHILS ABSOLUTE 0.02 IMMATURE GRANULOCYTES ABSOLUTE 0.03 COMPREHENSIVE METABOLIC PANEL - Abnormal SODIUM 135 (*) POTASSIUM 3.9 CHLORIDE 104 CO2 20 (*) CALCIUM 10.3 (*) BUN 26 (*) CREATININE 1.02 GLUCOSE 160 (*) TOTAL PROTEIN 6.9 ALBUMIN 4.2 BILIRUBIN TOTAL 0.3 ALKALINE PHOSPHATASE 92 AST 55 (*) ALT 84 (*) GFR >60 ANION GAP 11 MAGNESIUM LEVEL - Abnormal MAGNESIUM 2.5 (*) HEMOGLOBIN A1C - Abnormal HEMOGLOBIN A1C 6.8 (*) EST. AVG GLUCOSE, A1C 148 URINALYSIS WITH REFLEX MICROSCOPIC - Normal COLOR UA Yellow CLARITY UA Clear SPECIFIC GRAVITY UA 1.026 PH UA 6.0 LEUKOCYTE ESTERASE UA Negative NITRITE UA Negative PROTEIN UA Negative GLUCOSE UA Negative KETONES UA Negative UROBILINOGEN UA Normal BILIRUBIN UA Negative BLOOD UA Negative BRAIN NATRIURETIC PEPTIDE, BNP OR PROBNP - Normal PROBNP, N TERMINAL <36 TROPONIN BASELINE, 5TH GEN - Normal TROPONIN T, BASELINE 5TH GEN 13 TROPONIN 2 HR, 5TH GEN - Normal TROPONIN T, 2 HR 5TH GEN 13 DELTA 2HR TROPONIN T 0 TSH REFLEXIVE - Normal TSH 0.90 EXTRA TUBE (URINE BECKETT) RADIOLOGY: CTA HEAD AND NECK W AND/OR WO CONTRAST Radiologist Impression IMPRESSION: 1. No acute intracranial abnormality. 2. No significant stenosis or large vessel occlusion. 3. 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 The examination was performed with the adjustment of mA according to the patient size and/or the use of Iterative Reconstruction Technique. DICTATION LOCATION: Location 1 - [facility] XR CHEST PA OR AP 1 VW Radiologist Impression FINDINGS/ IMPRESSION: MEDIASTINUM: Cardiac silhouette is not enlarged. LUNGS: No focal consolidation. No appreciable pneumothorax or pleural effusion. Calcified granulomas. OTHER: Postoperative changes of bilateral rotator cuff repair. Bilateral glenohumeral osteoarthritis. DICTATION LOCATION: Location 4 CT HEAD WO CONTRAST Radiologist Impression IMPRESSION: 1. No CT evidence of acute intracranial abnormality. 2. Chronic changes. DICTATION LOCATION: Location 4 EKG: EKG Interpreted by Dr. Mayers Normal Sinus Rhythm Rate 79 bpm Left [place] Deviation Incomplete Right Bundle Branch Block Left Anterior Fascicular Block LVH PROCEDURES Procedures MEDICAL DECISION MAKING AND PLAN OF CARE ED Course as of 02/05/242141Feb 04, 2024 1700 Patient seen by ED physician at bedside. History obtained and physical exam performed. Updatedthe patient on the expected course of treatment. They are agreeable. [IR] 1922 7:31 PMRecheck on patient. Discussed with patient work up, relevant results, and plan for discharge. All results were properly reviewed and follow up for any abnormalities was recommended. Patient was given ED warnings, discharge instructions, and follow up instructions. Patient understands and agrees with plan for discharge. Patient was informed and verbalizes understanding to return to ER immediately if symptoms worsen or persist, new concerns arise, new symptoms develop or if follow up cannot be obtained. Any questions have been addressed. Patient feels comfortable going home at this t chuck. Disposition: Discharged home in stable condition [IR] ED Course User Index [IR] Mable Brown Scribe Medical Decision Making Medical Decision Making: Summary: 68 y.o. male with history of arthritis, chronic back pain, and GERD presents for evaluation of numbness. Physical exam findings include anterior thigh numbness. Lab results showed Mg 2.5. Imaging showed results shown below. Patient was treated with no meds in the ED and ultimately discharged with outpatient followup. Differential diagnosis includes, but is not limited to, carotid dissection and cerebrovascular disease. By virtue of history and physical, some of these diagnoses can be excluded. The following social determinants of health affected my care of this patient: None I considered admission vs discharge, and, through shared decision making with the patient when appropriate, the decision was made to Discharge. Amount and/or Complexity of Data Reviewed External Data Reviewed: notes. Labs: ordered. Decision-making details documented in ED Course. Radiology: ordered. Decision-making details documented in ED Course. Details: CTA HEAD AND NECK W AND/OR WO CONTRAST Radiologist Impression IMPRESSION: 1. No acute intracranial abnormality. 2. No significant stenosis or large vessel occlusion. 3. 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 The examination was performed with the adjustment of mA according to the patient size and/or the use of Iterative Reconstruction Technique. DICTATION LOCATION: Location [address] [place] [address] XR CHEST PA OR AP 1 VW Radiologist Impression FINDINGS/ IMPRESSION: MEDIASTINUM: Cardiac silhouette is not enlarged. LUNGS: No focal consolidation. No appreciable pneumothorax or pleural effusion. Calcified granulomas. OTHER: Postoperative changes of bilateral rotator cuff repair. Bilateral glenohumeral osteoarthritis. DICTATION LOCATION: Location 4 CT HEAD WO CONTRAST Radiologist Impression IMPRESSION: 1. No CT evidence of acute intracranial abnormality. 2. Chronic changes. DICTATION LOCATION: Location 4 ECG/medicine tests: ordered and independent interpretation performed. Decision- making details documented in ED Course. Risk Prescription drug management. Clinical Scoring & Consults Medications Administered During the ED Stay from 02/04/2024 1554 to 02/05/2024 2142 Date/Time Order Dose Route Action 02/04/2024 1818 CDT iopamidoL (ISOVUE-370) 76% injection (drawn from multi-use bulk pack) 80 mL 80 mL IV Contrast Given Discharge Medication List as of 02/04/2024 7:42 PM CONTINUE these medications which have NOT CHANGED Details atorvastatin (LIPITOR) 20 mg tablet Take 1 Tablet (20 mg) by mouth daily., Disp- 100 Tablet, R-3 finasteride (PROSCAR) 5 mg tablet Take 1 Tablet (5 mg) by mouth daily., Disp-30 Tablet, R-3 amLODIPine (NORVASC) 10 mg tablet Take 1 Tablet (10 mg) by mouth daily., Disp-90 Tablet, R-1 pregabalin (Lyrica) 50 mg Capsule Take 1 Capsule (50 mg) by mouth every 12 hours., Disp-60 Capsule,R-1 diclofenac sodium EC (VOLTAREN) 25 mg Tablet, Delayed Release (E.C.) Take 1 Tablet (25 mg) by mouth3 times daily., Disp-90 Tablet, R-3 amitriptyline (ELAVIL) 75 mg tablet Take 1 Tablet (75 mg) by mouth daily at bedtime., Disp-90 Tablet, R-1 LAST VS BP: (!) 123/90 (02/04/241899), Heart Rate: 73 bpm (02/04/241899), Resp: 20 (02/04/241899), Pulse: 76 (02/04/241899), Temp: 98 ??F (36.7 ??C) (02/04/24 160), Temp src: Skin (02/04/24 160), SpO2:94 % (02/04/241899) CLINICAL IMPRESSION Final diagnoses: [R20.0, R20.2] Numbness and tingling (Primary) DISPOSITION, EDUCATION AND MEDICATION RECONCILIATION Medications reconciled. See after visit summary for patient education on discharged patients. ED Disposition ED Disposition Discharge Condition Stable User Pascual Mayers MD Date/Time WedFeb 04, 2024 7:14 PM Comment -- ATTESTATION STATEMENTS Physician attestation: The scribe's documentation has been prepared under my direction and personally reviewed by me in its entirety. I confirm that the note above accurately reflects all work, treatment, procedures, and medical decision making performed by Pascual Mayers MD.. Mable Brown scribing for and in the presence of Pascual Mayers M.D. 02/04/24 documented in this encounter Plan of Treatment Upcoming Encounters Date Type Department Care Team (Late st Contact Info) Description 12/15/2024 3:20 PM BANK RECONCILIATOR Office Visit [facility] [place] [address] [address] [address] Osman Wolfe MD [address] [place] [address] [address] [address] documented as of this encounter Procedures Procedure Name Priority Date/Time Associated Diagnosis Comments TROPONIN 2 HR, 5TH GEN Timed Study 02/04/2024 6:59 PM CDT EXTRA TUBE (URINE BECKETT) Stat 02/04/2024 6:36 PM CDT URINALYSIS W/REFLEX MICROSCOPIC Stat 02/04/2024 6:36 PM CDT CTA HEAD AND NECK W AND/OR WO CONTRAST Stat 02/04/2024 6:18 PM CDT EKG 12-LEAD Stat 02/04/2024 5:36 PM CDT TROPONIN BASELINE, 5TH GEN Stat 02/04/2024 5:35 PM CDT TSH REFLEXIVE Stat 02/04/2024 5:35 PM CDT CBC WITH DIFFERENTIAL Stat 02/04/2024 5:35 PM CDT BRAIN NATRIURETIC PEPTIDE, BNP OR PROBNP Stat 02/04/2024 5:35 PM CDT MAGNESIUM LEVEL Stat 02/04/2024 5:35 PM CDT HEMOGLOBIN A1C Stat 02/04/2024 5:35 PM CDT COMPREHENSIVE METABOLIC PANEL Stat 02/04/2024 5:35 PM CDT XR CHEST PA OR AP 1 VW Stat 02/04/2024 5:[address] HEAD WO CONTRAST Stat 02/04/2024 4 :18 PM CDT documented in this encounter Results * TROPONIN 2 HR, 5TH GEN (02/04/2024 6:59 PM CDT) TROPONIN T, 2 HR 5TH GEN 13 <=15 ng/L 02/04/2024 7:20 PM CDT [facility] DELTA 2HR TROPONIN T 0 See Interp. 02/04/2024 7:20 PM CDT [facility] Blood Collection / Unknown 02/04/2024 6:59 PM CDT 02/04/2024 7:08 PM CDT Narrative [facility] - 02/04/2024 7:20 PM CDT Troponin Detectable but normal range. Delta not changing. Pascual Mayers MD CHEMISTRY ORDERA BLES [facility] CLIA # [id number] [address] [place] [address] * EXTRA TUBE (URINE BECKETT) (02/04/2024 6:36 PM CDT) Urine URINE SPECIMEN OBTAINED BY CLEAN CATCH PROCEDURE / Unknown Collection / Unknown 02/04/2024 6:36 PM CDT 02/04/2024 6:42 PM CDT Pascual Mayers MD URINE ORDERABLES [facility] CLIA # [id number] [facility] [address] [place] [address] * URINALYSIS WITH REFLEX MICROSCOPIC (02/04/2024 6:36 PM CDT) Pathologist [facility] COLOR UA Yellow Pale to Dark Yellow 02/04/2024 6:46 PM CDT [facility] CLARITY UA Clear Clear 02/04/2024 6:46 PM CDT [facility] SPECIFIC GRAVITY UA 1.026 1.003 - 1.035 02/04/2024 6:46 PM CDT [facility] PH UA 6.0 5.0 - 8.0 02/04/2024 6:46 PM CDT [facility] LEUKOCYTE ESTERASE UA Negative Negative 02/04/2024 6:46 PM CDT [facility] NITRITE UA Negative Negative 02/04/2024 6:46 PM CDT [facility] PROTEIN UA Negative Negative 02/04/2024 6:46 PM CDT [facility] GLUCOSE UA Negative Negative 02/04/2024 6:46 PM CDT [facility] KETONES UA Negative Negative 02/04/2024 6:46 PM CDT [facility] UROBILINOGEN UA Normal <2.0 mg/dL 6:46 PM CDT [facility] BILIRUBIN UA Negative Negative 02/04/2024 6:46 PM CDT [facility] BLOOD UA Negative Negative 02/04/2024 6:46 PM CDT [facility] Urine URINE SPECIMEN OBTAINED BY CLEAN CATCH PROCEDURE / Unknown Collection / Unknown 02/04/2024 6:36 PM CDT 02/04/2024 6:42 PM CDT Pascual Mayers MD URINE ORDERABLES [facility] CLIA # [id number] [facility] [address] [place] [id number] * CTA HEAD AND NECK W AND/OR WO CONTRAST (02/04/2024 6:18 PM CDT) Anatomical Region Laterality Modality Head Computed Tomogra phy 02/04/2024 6:18 PM CDT Impressions 02/04/2024 7:34 PM CDT IMPRESSION: ?? 1. No acute intracranial abnormality. 2. No significant stenosis or large vessel occlusion. 3. 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 The examination was performed with the adjustment of mA according to the patient size and/or the use of Iterative Reconstruction Technique. ?? DICTATION LOCATION: Location 1 - [facility] Narrative 02/04/2024 7:34 PM CDT CTA HEAD AND NECK W AND/OR WO CONTRAST DATE: ??02/04/2024 6:18 PM HISTORY: Transient ischemic attack (TIA). TECHNIQUE: Computed tomography axial images were acquired. Angiographic protocol. Isovue-300 intravenous contrast. Multiplanar reformats and 3D volumetric reconstructions ??were created. MIP reformats. Stenosis measurements by NASCET criteria. Automated software analysis for large vessel occlusion specifically utilizing RAPID software program by [employer]. CONTRAST: IOPAMIDOL 76 % INTRAVENOUS SOLUTION (MULTI-DOSE BULK PACK) Given:80 mL COMPARISON: None FINDINGS: HEAD: Parenchymal attenuation is normal. No evidence of hemorrhage or edema. No mass or mass effect. Ventricles are normal. No midline shift. No acute extra-axial collection. Mastoids are aerated. Paranasal sinus mucosal disease is present. NECK VASCULAR: ?? Aortic arch and great vessels: Normal left-sided arch. Minimal atherosclerosis. Branch vessel origins are patent. Right carotid: Small amount of atherosclerotic disease at the bifurcation. Left carotid: Minimal atheromatous irregularity at the bifurcation. No stenosis. Right vertebral artery: Normal. Left vertebral artery: Dominant. Normal. Visualized soft tissues of the neck: No neck mass or lymphadenopathy. HEAD VASCULAR: Carotid siphons: Good enhancement. No stenosis. Anterior cerebral arteries: Vessels are patent. A-comm is patent. Tiny 1 to 2 mm broad-based aneurysm is suspected arising from the left left A1/A2 junction projecting medially. Middle cerebral arteries: Normal. Vertebral arteries: Left side is dominant. Basilar artery: Normal. Posterior cerebral arteries: Normal. Dural sinus venous structures are normal. Jugular veins are patent. Procedure Note Liam Pickens MD - 02/04/2024 CTA HEAD AND NECK W AND/OR WO CONTRAST DATE: 02/04/2024 6:18 PM HISTORY: Transient ischemic attack (TIA). TECHNIQUE: Computed tomography axial images were acquired. Angiographic protocol. Isovue-300 intravenous contrast. Multiplanar reformats and 3D volumetric reconstructions were created. MIP reformats. Stenosis measurements by NASCET criteria. Automated software analysis for large vessel occlusion specifically utilizing RAPID software program by [employer]. CONTRAST: IOPAMIDOL 76 % INTRAVENOUS SOLUTION (MULTI-DOSE BULK PACK) Given:80 mL COMPARISON: None FINDINGS: HEAD: Parenchymal attenuation is normal. No evidence of hemorrhage or edema. No mass or mass effect. Ventricles are normal. No midline shift. No acute extra-axial collection. Mastoids are aerated. Paranasal sinus mucosal disease is present. NECK VASCULAR: Aortic arch and great vessels: Normal left-sided arch. Minimal atherosclerosis. Branch vessel origins are patent. Right carotid: Small amount of atherosclerotic disease at the bifurcation. Left carotid: Minimal atheromatous irregularity at the bifurcation. No stenosis. Right vertebral artery: Normal. Left vertebral artery: Dominant. Normal. Visualized soft tissues of the neck: No neck mass or lymphadenopathy. HEAD VASCULAR: Carotid siphons: Good enhancement. No stenosis. Anterior cerebral arteries: Vessels are patent. A-comm is patent. Tiny 1 to 2 mm broad-based aneurysm is suspected arising from the left left A1/A2 junction projecting medially. Middle cerebral arteries: Normal. Vertebral arteries: Left side is dominant. Basilar artery: Normal. Posterior cerebral arteries: Normal. Dural sinus venous structures are normal. Jugular veins are patent. IMPRESSION: 1. No acute intracranial abnormality. 2. No significant stenosis or large vessel occlusion. 3. 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 The examination was performed with the adjustment of mA according to the patient size and/or the use of Iterative Reconstruction Technique. DICTATION LOCATION: Location 1 - [facility] Pascual Mayers MD CT ORDERABLES * EKG 12-LEAD (02/04/2024 5:36 PM CDT) 02/04/2024 5:36 PM CDT Narrative INTERFACE SYSTEM - 02/05/2024 8:08 AM CDT ? [facility] ED ? [address], [place] [address] ? Test Date: ?2024-02-04 Pat Name: ? EDILBERTO HAWLEY ? Department: ?? 5000 ? Room: ? ED16 ED16 Gender: ? Male ? Printing Services Coordinator: ? : ?1955 ? Requested By: PASCUAL CHAUHAN Order Number: [id number] ? Reading MD: ?? Kemal Collazo ? Measurements Intervals ?[place] ? Rate: ? 79 ? P: ?47 MN: ? 188 ?QRS: ?-68 QRSD: ? 95 ? T: ?40 QT: ? 361 ? QTc: ?414 ? Interpretive Statements SINUS RHYTHM INCOMPLETE RIGHT BUNDLE BRANCH BLOCK ??[90+ ms QRS DURATION, TERMINAL R IN V1/V2, 40+ ms S IN I/aVL/V4/V5/V6] LEFT ANTERIOR FASCICULAR BLOCK ??[QRS AXIS <= -45, QR IN I, RS IN II] MINIMAL VOLTAGE CRITERIA FOR LVH, CONSIDER NORMAL VARIANT ??[MEETS CRITERIA IN ONE OF: R(aVL), S(V1), R(V5), R(V5/V6)+S(V1)] Electronically Signed On 02-05-2024 8:08:56 CDT by Kemal Collazo Procedure Note Kemal Collazo MD - 02/05/2024 [facility] ED [address], [place] [id number] Test Date: 2024-02-04 Pat Name: EDILBERTO HAWLEY Department: 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1955 Requested By: PASCUAL CHAUHAN Order Number: [id number] Reading MD: Kemal Collazo Measurements Intervals [place] Rate: 79 P: 47 MN: 188 QRS: -68 QRSD: 95 T: 40 QT: 361 QTc: 414 Interpretive Statements SINUS RHYTHM INCOMPLETE RIGHT BUNDLE BRANCH BLOCK [90+ ms QRS DURATION, TERMINAL R IN V1/V2, 40+ ms S IN I/aVL/V4/V5/V6] LEFT ANTERIOR FASCICULAR BLOCK [QRS AXIS <= -45, QR IN I, RS IN II] MINIMAL VOLTAGE CRITERIA FOR LVH, CONSIDER NORMAL VARIANT [MEETS CRITERIAIN ONE OF: R(aVL), S(V1), R(V5), R(V5/V6)+S(V1)] Electronically Signed On 02-05-2024 8:08:56 CDT by Kemal Collazo Pascual Mayers MD ECG ORDERABLES INTERFACE SYSTEM Refer to clinic/hospital department * (ABNORMAL) HEMOGLOBIN A1C (02/04/2024 5:35 PM CDT) HEMOGLOBIN A1C 6.8(H) <=5.6 % 02/04/2024 6:17 PM CDT [facility] EST. AVG GLUCOSE, A1C 148 mg/dL 02/04/2024 6:17 PM CDT [facility] [place] Blood Collection / Unknown 02/04/2024 5:35 PM CDT 02/04/2024 5:57 PM CDT Narrative [facility] - 02/04/2024 6:17 PM CDT HGB A1C INTERPRETATION NORMAL: ? <5.7% PRE-DIABETES: 5.7 - 6.4% DIABETES: ? 6.5% OR GREATER Pascual Mayers MD CHEMISTRY ORDERA BLES [facility] CLIA # [id number] [address] [place] [address] * (ABNORMAL) MAGNESIUM LEVEL (02/04/2024 5:35 PM CDT) MAGNESIUM 2.5(H) 1.6 - 2.4 mg/dL 02/04/2024 5:52 PM CDT [facility] Blood Collection / Unknown 02/04/2024 5:35 PM CDT 02/04/2024 5:46 PM CDT Pascual Mayers MD CHEMISTRY ORDERA BLES Performing Organization Address [facility] Co de Phone Number [facility] CLIA # [id number] [address] [place] [address] * TSH REFLEXIVE (02/04/2024 5:35 PM CDT) TSH 0.90 0.27 - 4.20 uIU/mL 02/04/2024 6:10 PM CDT [facility] Blood Collection / Unknown 02/04/2024 5:35 PM CDT 02/04/2024 5:46 PM CDT Pascual Mayers MD CHEMISTRY ORDERA BLES Performing Organization Address City/[facility]/ZIP Co de Phone Number [facility] CLIA # [id number] [address] [place] [address] * TROPONIN BASELINE, 5TH GEN (02/04/2024 5:35 PM CDT) Pathologist [facility] TROPONIN T, BASELINE 5TH GEN 13 <=15 ng/L 02/04/2024 6:00 PM CDT [facility] Blood Collection / Unknown 02/04/2024 5:35 PM CDT 02/04/2024 5:46 PM CDT Narrative [facility] - 02/04/2024 6:00 PM CDT Troponin Detectable but normal range. Pascual Mayers MD CHEMISTRY ORDERA BLES [facility] [employer] [facility] CLIA # [id number] [address] [address] * BRAIN NATRIURETIC PEPTIDE, BNP OR PROBNP (02/04/2024 5:35 PM CDT) Pathologist [facility] PROBNP, N TERMINAL <36 <900 pg/mL 02/04/2024 6:10 PM CDT [facility] Comment:Among patients with dyspnea, NT-proBNP is highly sensitive for the detection on acute congestive heart failure. In addition, a NT-proBNP <300 pg/mL effectively rules out acute congestive heart failure, with 99% negative predictive value. Blood Collection / Unknown 02/04/2024 5:35 PM CDT 02/04/2024 5:46 PM CDT Pascual Mayers MD CHEMISTRY ORDERA BLES [facility] CLIA # [id number] [address] [address] * (ABNORMAL) COMPREHENSIVE METABOLIC PANEL (02/04/2024 5:35 PM CDT) Pathologist [facility] SODIUM 135(L) 136 - 145 mmol/L 02/04/2024 5:57 PM CDT [facility] POTASSIUM 3.9 3.5 - 5.1 mmol/L 02/04/2024 5:57 PM [facility] [place] CHLORIDE 104 98 - 107 mmol/L 02/04/2024 5:57 PM [facility] [place] CO2 20(L) 22 - 29 mmol/L 02/04/2024 5:57 PM [facility] CALCIUM 10.3(H) 8.8 - 10.2 mg/dL 02/04/2024 5:57 PM [facility] BUN 26(H) 8 - 23 mg/dL 02/04/2024 5:57 PM [facility] [place] CREATININE 1.02 0.67 - 1.17 mg/dL 02/04/2024 5:57 PM [facility] [place] Comment:The GFR result is no t clinically significant on patients <18 or >70 years of age. GLUCOSE 160(H) 74 - 99 mg/dL 02/04/2024 5:57 PM [facility] TOTAL PROTEIN 6.9 6.6 - 8.7 g/dL 02/04/2024 5:57 PM [facility] ALBUMIN 4.2 4.0 - 5.0 g/dL 02/04/2024 5:57 PM [facility] [place] BILIRUBIN TOTAL 0.3 <=1.2 mg/dL 02/04/2024 5:57 PM [facility] ALKALINE PHOSPHATASE 92 40 - 129 U/L 02/04/2024 5:57 PM [facility] AST 55(H) <=41 U/L 02/04/2024 5:57 PM [facility] [place] ALT 84(H) <=41 U/L 02/04/2024 5:57 PM [facility] [place] GFR >60 mL/min/1.7 3 sq meter 02/04/2024 5:57 PM [facility] [place] Comment:eGFR calculated with 2020 CKD-EPI equation. Vegetarian diet, extremely high or low muscle mass, and may affect results. Cystatin C with Glomerular Filtration Rate is a suitable alternative for these patients. ANION GAP 11 5 - 15 mmol/L 02/04/2024 5:57 PM CDT [facility] [place] Blood Collection / Unknown 02/04/2024 5:35 PM CDT 02/04/2024 5:46 PM CDT Pascual Mayers MD CHEMISTRY ORDERA BLES [facility] [place] CLIA # [id number] [address] [place] [address] * (ABNORMAL) CBC WITH DIFFERENTIAL (02/04/2024 5:35 PM CDT) WBC 9.7 4.0 - 11.0 K/uL 02/04/2024 5:42 PM CDT [facility] [place] RBC 5.31 4.60 - 6.20 M/uL 02/04/2024 5:42 PM CDT [facility] [place] HEMOGLOBIN 17.3(H) 13.5 - 17.0 g/dL 02/04/2024 5:42 PM CDT [facility] [place] HEMATOCRIT 49.7 40.0 - 54.0 % 02/04/2024 5:42 PM CDT [facility] [place] MCV 93.6 80.0 - 98.0 fL 02/04/2024 5:42 PM CDT [facility] [place] MCH 32.6 26.0 - 34.0 pg 02/04/2024 5:42 PM CDT [facility] [place] MCHC 34.8 31.0 - 37.0 g/dL 02/04/2024 5:42 PM CDT [facility] [place] RDW 11.7 11.5 - 14.5 % 02/04/2024 5:42 PM CDT [facility] [place] RDW-STDEV 40.3 34.0 - 54.0 fL 02/04/2024 5:42 PM CDT [facility] [place] PLATELETS 235 150 - 400 K/uL 02/04/2024 5:42 PM CDT [facility] [place] MPV 10.1 8.5 - 12.5 fL 02/04/2024 5:42 PM CDT [facility] [place] NEUTROPHILS 64 50 - 70 % 02/04/2024 5:42 PM CDT [facility] [place] LYMPHOCYTES 25 20 - 40 % 02/04/2024 5:42 PM CDT [facility] [place] MONOCYTES 8 2 - 8 % 02/04/2024 5:42 PM CDT [facility] [place] EOSINOPHILS 3 1 - 3 % 02/04/2024 5:42 PM CDT [facility] [place] BASOPHILS 0 0 - 1 % 02/04/2024 5:42 PM CDT [facility] [place] IMMATURE GRANULOCYTES 0 0 - 2 % 02/04/2024 5:42 PM CDT [facility] [place] NEUTROPHIL ABSOLUTE 6.20 1.80 - 7.70 K/uL 02/04/2024 5:42 PM CDT [facility] [place] LYMPHOCYTE ABSOLUTE 2.44 1.00 - 3.30 K/uL 02/04/2024 5:42 PM CDT [facility] [place] MONOCYTE ABSOLUTE 0.78 0.00 - 0.80 K/uL 02/04/2024 5:42 PM CDT [facility] [place] EOSINOPHIL ABSOLUTE 0.24 0.00 - 0.45 K/uL 02/04/2024 5:42 PM CDT [facility] [place] BASOPHILS ABSOLUTE 0.02 0.00 - 0.20 K/uL 02/04/2024 5:42 PM CDT [facility] [place] IMMATURE GRANULOCYTES ABSOLUTE 0.03 0.00 - 0.31 K/uL 02/04/2024 5:42 PM CDT [facility] [place] Blood Collection / Unknown 02/04/2024 5:35 PM CDT 02/04/2024 5:40 PM CDT Pascual Mayers MD HEMATOLOGY ORDER RASHMI [facility] [place] CLIA # [id number] [address] [place] [address] * XR CHEST PA OR AP 1 VW (02/04/2024 5:17 PM CDT) Anatomical Region Laterality Modality Chest Computed Radiogr aphy 02/04/2024 5:17 PM CDT Impressions 02/04/2024 5:24 PM CDT FINDINGS/ IMPRESSION: ?? MEDIASTINUM: Cardiac silhouette is not enlarged. LUNGS: No focal consolidation. No appreciable pneumothorax or pleural effusion. Calcified granulomas. ?? OTHER: Postoperative changes of bilateral rotator cuff repair. Bilateral glenohumeral osteoarthritis. DICTATION LOCATION: Location 4 Narrative 02/04/2024 5:24 PM CDT XR CHEST PA OR AP 1 VW Ordering provider: PASCUAL MAYERS Date/time: 02/04/2024 5:17 PM History: 68 years Male with CVA. See Reason for Exam. Comparison: 08/13/2014 Procedure Note Emmanuel Chauhan MD - 02/04/2024 XR CHEST PA OR AP 1 VW Ordering provider: PASCUAL MAYERS Date/time: 02/04/2024 5:17 PM History: 68 years Male with CVA. See Reason for Exam. Comparison: 08/13/2014 FINDINGS/ IMPRESSION: MEDIASTINUM: Cardiac silhouette is not enlarged. LUNGS: No focal consolidation. No appreciable pneumothorax or pleural effusion. Calcified granulomas. OTHER: Postoperative changes of bilateral rotator cuff repair. Bilateral glenohumeral osteoarthritis. DICTATION LOCATION: Location 4 Pascual Mayers MD DIAGNOSTIC IMAGI NG ORDERABLES * CT HEAD WO CONTRAST (02/04/2024 4:18 PM CDT) Anatomical Region Laterality Modality Head Computed Tomogra phy 02/04/2024 4:14 PM CDT Impressions 02/04/2024 4:34 PM CDT IMPRESSION: 1. ??No CT evidence of acute intracranial abnormality. ?? 2. ??Chronic changes. DICTATION LOCATION: Location 4 Narrative 02/04/2024 4:[address] HEAD WO CONTRAST DATE: 02/04/2024 4:18 PM CLINICAL INDICATION: Neuro deficit, acute, stroke suspected. COMPARISON: CT head without contrast 08/13/2014. TECHNIQUE: CT of the head was performed without the administration of intravenous contrast. The examination was performed with the adjustment of mA according to the patient size and/or the use of Iterative Reconstruction Technique. ?? FINDINGS: ?? No CT evidence of acute/subacute territorial infarct. No acute intracranial hemorrhage, herniation, or midline shift. No space-occupying lesion. Nonspecific white matter hypodensities are noted, which likely reflect chronic microvascular disease. Intracranial atherosclerosis. The ventricles are normal without evidence of hydrocephalus. There are no extra-axial fluid collections. The visualized orbits are grossly unremarkable. Mild paranasal sinus mucosal inflammatory changes. The mastoid air cells are clear. The visualized calvarium appears intact. Mild right TMJ arthropathy. Procedure Note Carlos EduardoElpidio amor, DO - 02/04/2024 CT HEAD WO CONTRAST DATE: 02/04/2024 4:18 PM CLINICAL INDICATION: Neuro deficit, acute, stroke suspected. COMPARISON: CT head without contrast 08/13/2014. TECHNIQUE: CT of the head was performed without the administration of intravenous contrast. The examination was performed with the adjustment of mA according to the patient size and/or the use of Iterative Reconstruction Technique. FINDINGS: No CT evidence of acute/subacute territorial infarct. No acute intracranial hemorrhage, herniation, or midline shift. No space-occupying lesion. Nonspecific white matter hypodensities are noted, which likely reflect chronic microvascular disease. Intracranial atherosclerosis. The ventricles are normal without evidence of hydrocephalus. There are no extra-axial fluid collections. The visualized orbits are grossly unremarkable. Mild paranasal sinus mucosal inflammatory changes. The mastoid air cells are clear. The visualized calvarium appears intact. Mild right TMJ arthropathy. IMPRESSION: 1. No CT evidence of acute intracranial abnormality. 2. Chronic changes. DICTATION LOCATION: Location [address] ORDERABLES documented in this encounter Visit Diagnoses Diagnosis Numbness and tingling- Primary Disturbance of skin sensation documented in this encounter Administered Medications Inactive Administered Medications - up to 3 most recent administrations Medication Order MAR Action Action Date Dose Rate Site iopamidoL (ISOVUE-370) 76% injection (drawn from multi-use bulk pack) 80 mL 80 mL, IV, INTRA-PROCEDURE ONCE, 1 dose, Starting on Wed02/04/24 at 1807, Until Wed02/04/24 at 1818, Routine Contrast Given 02/04/2024 6:18 PM CDT 80 mL documented in this encounter Active and Recently Administered Medications Times are shown in CDT. Scheduled Medication Order 02/02/2024 02/03/2024 02/04/2024 iopamidoL (ISOVUE-370) 76% injection (drawn from multi-use bulk pack) 80 mL (COMPLETED) 80 mL, IV, INTRA-PROCEDURE ONCE, 1 dose, Starting on Wed02/04/24 at 1807, Until Wed02/04/24 at 1818, Routine 1818 (Contrast Given - Provider: Chris Coleman RT) documented in this encounter Care Teams Educational Psychology Teacher Relationship Specialty Start Date End Date Asael Barajas DO [address] [address] PCP - General Internal Medicine 10/01/23 08/09/24 documented as of this encounter
--- OUTSIDE RECORDS SUMMARY | 2024-11-23 00:48 | XMS_ITS | Encounter Summary ---
Author Organization [facility] Address [address] [place] [address] Care Team Providers Care Boat Tester Name Role Phone Buddy Barajas DO Primary Care Provider Reason for Referral * Radiology Services (Routine) - Authorized Specialty Diagnoses / Procedures Referred By Contac tripp Referred To Contact Radiology Diagnoses Transaminitis Procedures US ABDOMEN LIMITED Buddy Barajas DO [address] [place] [address] [facility] [address] [facility] [place] [address] Referral ID Status Reason Start Date Expiration Date V isits Requested Visits Authorized [id number] Authorized 12/28/2023 01/27/2025 1 1 MASTER Reason for Visit * Reason Comments Follow Up Encounter Details Date Type Department Care Team (Late st Contact Info) Description 12/27/2023 2:30 PM [address] Office Visit [facility] - [place] [facility] [address] [address], [facility] [address] [place] [address] Buddy Barajas DO [address] [address] [facility] [address] [place] [address] Prediabetes (Primary Dx); HTN (hypertension), benign; Benign prostatic hyperplasia, unspecified whether lower urinary tract symptoms present; Chronic bilateral low back pain with sciatica, sciatica laterality unspecified; Transaminitis; Type 2 diabetes mellitus without complication, without long-term current use of insulin Social History Tobacco Use Types Packs/Day Years [...] Sign Reading Time Taken Comments Blood Pressure 144/82 12/27/2023 2:06 PM [address]MA[address] Pulse 74 12/27/2023 2:06 PM [address]MA[address] Temperature 36.3 ??C (97.3 ??F) 12/27/2023 2:06 PM CS T Respiratory Rate 16 12/27/2023 2:06 [address] Oxygen Saturation 97% 12/27/2023 2:06 [address]MA[address] Inhaled Oxygen Concentration - - Weight 90.3 kg (199 lb) 12/27/2023 2:06 PM [address]MA[address] Height 180.3 cm (5' 11 ) 12/27/2023 2:06 [address]MA[address] Body Mass Index 27.75 12/27/2023 2:06 [address]MA[address] documented in this encounter Progress Notes * Inez Holland - 12/27/2023 2:10 PM CST Fall Risk ASSESSMENT He has had no falls in the past year. Depression Screen Positive: PHQ-2 score >= 3 or PHQ-9 score >= 9 PHQ-2 Total: 0 (12/27/2023 2:10 PM) PHQ-9 Total: 0 (12/27/2023 2:10 PM) DEPRESSION PLAN OF CARE His depression screen was negative. MASTER * Buddy Barajas DO - 12/27/2023 2:04 PM CST Assessment/Plan: Edilberto Hawley Sr. is a 68 y.o. male presenting for: #L Arm pain -Hx of L shoulder surgery -For an extended period of time he has had L shoulder pain and intermittent numbness/weakness in the arm and hand -Has been told he has some bulging disks in his neck -Takes Voltaren and baclofen with moderate relief -Discussed getting imaging or doing further investigation, patient declined at this time -Trial Lyrica and uptitrate as needed # BPH -Has been told he has an enlarged heart and prostate in the past -Was previously on Flomax -Currently waking several times a night to urinate -Trial Proscar -Check PSA # Prediabetes -Not currently on medication -Check A1c #HTN -144/82 -On amlodipine -Increase to amlodipine 10mg -Check CBC, CMP, micral albumin -Medications and options explained to include common side effects. Understanding of medications, course, diagnosis, and expectations were expressed by patient/guardian. FOLLOW UP Return in about 6 months (around 06/26/2024). Edilberto was seen today for follow up. Diagnoses and all orders for this visit: Prediabetes - HEMOGLOBIN A1C; Future - HEMOGLOBIN A1C HTN (hypertension), benign - CBC WITH DIFFERENTIAL; Future - COMPREHENSIVE METABOLIC PANEL; Future - MICROALBUMIN/CREATININE RATIO, RANDOM UR; Future - amLODIPine (NORVASC) 10 mg tablet; Take 1 Tablet (10 mg) by mouth daily. - MICROALBUMIN/CREATININE RATIO, RANDOM UR - CBC WITH DIFFERENTIAL - COMPREHENSIVE METABOLIC PANEL Benign prostatic hyperplasia, unspecified whether lower urinary tract symptoms present - PSA; Future - finasteride (PROSCAR) 5 mg tablet; Take 1 Tablet (5 mg) by mouth daily. - PSA Chronic bilateral low back pain with sciatica, sciatica laterality unspecified - pregabalin (Lyrica) 50 mg Capsule; Take 1 Capsule (50 mg) by mouth every 12 hours. Exam/Objective: Vitals: 12/27/23 1406 BP: (!) 144/82 BP Location: Right arm Patient Position (BP): Sitting BP Cuff Size: Large Adult Pulse: 74 Resp: 16 Temp: 97.3 ??F (36.3 ??C) TempSrc: Temporal SpO2: 97% Weight: 90.3 kg (199 lb) Height: 5' 11 (1.803 m) Body mass index is 27.75 kg/m??. General appearance: Alert, cooperative, no acute distress Head: Normocephalic, atraumatic Eyes: Conjunctivae/corneas cooper Ears: Hearing grossly normal. Heart: regular rate and rhythm, no murmur Lungs: Breath sounds equal, clear to auscultation bilaterally, no wheezing, normal respiratory effort Abdomen: soft, non-tender. Skin: No rashes or lesions noted Extremities: No BLE edema Buddy Barajas DO 12/27/2023 [facility] [address] [address] [place] [address] Portions of this encounter may have been generated with Dragon Naturally Speaking and could containinadvertent errors. Every effort has been made to proof read and avoid such errors. MASTER documented in this encounter Miscellaneous Notes * Result Encounter Note - Vikki Mcgrath RN - 12/28/2023 3:[address] Barajas A couple abnormalities on his recent blood work. His liver numbers were a little bit elevated, I'd like him to get a liver ultrasound to look for any abnormalities. He can call the number below to set up an appointment CENTRAL SCHEDULING FOR PROCEDURE/[phone] His diabetes number is a bit elevated, and has moved from prediabetes to diabetes. I do not think we need to start a diabetic medication, but he would benefit from a cholesterol pill (atorvastatin) to help decrease his risk of heart attack/strokes in the future. Finally his red/white blood cells were just slightly elevated. We do not need to do anything about this right now, but we will recheck his labs at a later visit Patient verbalized understanding, Patient will call to schedule a follow up visits after US resulkts are in. MASTER * Addendum Note - Buddy Barajas DO - 12/28/2023 8:49 AM CSTAddended by: BUDDY BARAJAS on: 12/28/2023 08:49 AM Modules accepted: Orders MASTER * Patient Instructions - Buddy Barajas DO - 12/27/2023 2:30 PM [address]MA[address] Max dose of voltaren is 75mg/day Trial Lyrica twice a day for pain. We can increase to 3x per day if needed Increase Amlodipine 10mg daily (you can take 2 of your 5mg tablets until you run out) Proscar- new med for the prostate GET LABS DONE [facility] in the hospital: Wed-Wed 730am- 400pm [facility] across the street: Wed-Wed 630am-5pm, Wednesday 7am-1pm MASTER documented in this encounter Plan of Treatment Upcoming Encounters Date Type Department Care Team (Late st Contact Info) Description 12/15/2024 3:20 PM [address]MASTER Office Visit [facility] [place] [address] [place] [address] [address] [place] [address] Osman Wolfe MD [address] [address] [place] [address] [place] [address] Scheduled Orders Name Type Priority Associated Diagnoses Orde r Schedule US ABDOMEN LIMITED Imaging Routine Transaminitis 1 Occurrences starting 12/28/2023 until 12/28/2024 documented as of this encounter Procedures Procedure Name Priority Date/Time Associated Diagnosis Comments CBC WITH DIFFERENTIAL Routine 12/27/2023 3:12 [address] HTN (hypertension), benign PSA Routine 12/27/2023 3:12 [address]MA[address] Benign prostatic hyperplasia, unspecified whether lower urinary tract symptoms present HEMOGLOBIN A1C Routine 12/27/2023 3:12 [address] Prediabetes COMPREHENSIVE METABOLIC PANEL Routine 12/27/2023 3:12 [address] HTN (hypertension), benign MICROALBUMIN/CREATININ E RATIO, RANDOM UR Routine 12/27/2023 3:[address] HTN (hypertension), benign documented in this encounter Results * PSA (12/27/2023 3:12 PM ROADMASTER) Pathologist [facility] PSA 0.36 < OR = 4.00 ng/mL [employer] carlyle Comment: The total PSA value from this assay system is standardized against the WHO standard. The test result will be approximately 20% lower when compared to the equimolar-standardized total PSA (Lalit Claudy). Comparison of serial PSA results should be interpreted with this fact in mind. This test was performed using the Siemens chemiluminescent method. Values obtained from different assay methods cannot be used interchangeably. PSA levels, regardless of value, should not be interpreted as absolute evidence of the presence or absence of disease. FASTING:NO FASTING: NO Test Performed at: [facility] ??[address] Magdi Mata MD Blood 12/27/2023 3:12 PM [address]MASTER 12/27/2023 3:13 PM [address]MA[address] Buddy Barajas DO CHEMISTRY ORDERABLES [facility] [phone] [facility] [address] * (ABNORMAL) COMPREHENSIVE METABOLIC PANEL (12/27/2023 3:12 PM ROADMASTER) Pathologist [facility] GLUCOSE 142(H) 65 - 139 mg/dL [employer] ABSophia Parry Comment: ? Non-fasting reference interval BUN 20 7 - 25 mg/dL iNlda AlixaRxLucila Parry CREATININE 1.04 0.70 - 1.28 mg/dL Nilda Parry GFR 77 > OR = 60 mL/min/1. 73m2 Nilda SportingoSophia Parry BUN/CREAT RATIO SEE NOTE: 6 - 22 (calc) Nilda SportingoSophia Parry Comment: ?? Not Reported: BUN and Creatinine are within ?? reference range. ? SODIUM 139 135 - 146 mmol/L Nilda AlixaRxLucila Parry POTASSIUM 4.1 3.5 - 5.3 mmol/L [employer] [facility]-S tripp Parry CHLORIDE 105 98 - 110 mmol/L [facility] tripp Parry CO2 23 20 - 32 mmol/L [facility] tripp Parry CALCIUM 10.1 8.6 - 10.3 mg/dL [facility] tripp Parry TOTAL PROTEIN 7.7 6.1 - 8.1 g/dL [facility] tripp [facility] ALBUMIN 5.0 3.6 - 5.1 g/dL [facility] tripp [facility] GLOBULIN 2.7 1.9 - 3.7 g/dL (calc) [facility] tripp Par[facility] ALBUMIN/GLOBULIN RATIO 1.9 1.0 - 2.5 (calc) [facility]S tripp Parry BILIRUBIN TOTAL 0.7 0.2 - 1.2 mg/dL [employer]-S tripp Parry ALKALINE PHOSPHATASE 74 35 - 144 U/L [facility] tripp Parry AST 71(H) 10 - 35 U/L [facility]S tripp Parry ALT 114(H) 9 - 46 U/L [employer] [facility]-S tripp Parry Comment: FASTING:NO FASTING: NO Test Performed at: [facility] [address] [address] [address] [place], [place] ??[address] [facility]asia Issa Adolfo Blood 12/27/2023 3:12 PM [address]MASTER 12/27/2023 3:13 [address] Buddy Barajas DO CHEMISTRY ORDERABLES [facility] [phone] [facility] [address] [place] [address] * (ABNORMAL) CBC WITH DIFFERENTIAL (12/27/2023 3:12 PM ROADMASTER) WBC 11.3(H) 3.8 - 10.8 Thousand/ uL [employer] [facility]-Lucila Parry RBC 5.45 4.20 - 5.80 Million/u L [facility]S tripp Parry HEMOGLOBIN 17.3(H) 13.2 - 17.1 g/dL [facility] tripp Parry HEMATOCRIT 52.1(H) 38.5 - 50.0 % [facility] tripp Parry MCV 95.6 80.0 - 100.0 fL Nilda ArceA & A Custom CornholeS tripp Parry MCH 31.7 27.0 - 33.0 pg Nilda Parry MCHC 33.2 32.0 - 36.0 g/dL Nilda Arce-Lucila Parry RDW 13.1 11.0 - 15.0 % Nilda Arce-Lucila Parry PLATELETS 242 140 - 400 Thousand/ uL Nilda Parry MPV 10.6 7.5 - 12.5 fL Nilda Arce-Lucila Parry NEUTROPHIL ABSOLUTE 7,594 1,500 - 7,800 cells/uL [facility] Arce-Lucila Parry LYMPHOCYTE ABSOLUTE 2,701 850 - 3,900 cells/uL [facility] Arce-Lucila Parry MONOCYTE ABSOLUTE 825 200 - 950 cells/uL [facility] Arce-Lucila Parry EOSINOPHIL ABSOLUTE 136 15 - 500 cells/uL Nilda Arce-Lucila Parry BASOPHILS ABSOLUTE 45 0 - 200 cells/uL N[facility] Arce-Lucila Parry NEUTROPHIL 67.2 % N[facility] Arce-Lucila Parry LYMPHOCYTES 23.9 % Nilda Arce-Lucila Parry MONOCYTE 7.3 % N[facility] Arce-Lucila Parry EOSINOPHILS 1.2 % Nilda Arce-Lucila Parry BASOPHILS 0.4 % [facility]-Lucila Parry Comment: FASTING:NO FASTING: NO Test Performed at: [facility] [place] [address] [address] [address] [place], [place] ??[address] CassiMacKasia Issa Vo Blood 12/27/2023 3:12 PM [address]MASTER 12/27/2023 3:13 [address] Buddy Barjaas DO HEMATOLOGY ORDERABLE S [facility] [phone] [facility] [address] [place] [address] * (ABNORMAL) HEMOGLOBIN A1C (12/27/2023 3:12 PM ROADMASTER) HEMOGLOBIN A1C 6.6(H) <5.7 % of total Hgb Nilda AlixaRxLucila Parry Comment: For someone without known diabetes, a hemoglobin A1c value of 6.5% or greater indicates that they may have diabetes and this should be confirmed with a follow-up test. For someone with known diabetes, a value <7% indicates that their diabetes is well controlled and a value greater than or equal to 7% indicates suboptimal control. A1c targets should be individualized based on duration of diabetes, age, comorbid conditions, and other considerations. Currently, no consensus exists regarding use of hemoglobin A1c for diagnosis of diabetes for children. ?? ESTIMATED AVERAGE GLUCOSE (MG/DL) 143 mg/dL [employer] [facility]ophia Parry ESTIMATED AVERAGE GLUCOSE (MMOL/L) 7.9 mmol/L [employer] ABLucila Parry Comment: HbA1c performed on [employer]junk[employer] platform. ?? FASTING:NO FASTING: NO Test Performed at: [facility] [place] [place], [place] ??[address] Magdi Mata Blood 12/27/2023 3:12 PM [address] 12/27/2023 3:13 [address] Buddy Barajas DO CHEMISTRY ORDERABLES [facility] [phone] [facility] [address] [address] [place] [address] * MICROALBUMIN/CREATININE RATIO, RANDOM UR (12/27/2023 3:08 PM ROADMASTER) Creatinine, Urine 240 20 - 320 mg/dL [employer] [facility] MICROALBUMIN, URINE 1.5 See Note: mg/dL [...] category. FASTING:NO FASTING: NO Test Performed at: [facility] [place] [address] [place] ??[address] Magdi Mata MD Urine URINE SPECIMEN OBTAINED BY CLEAN CATCH PROCEDURE / Unknown 12/27/2023 3:[address] 12/27/2023 3:[address] Buddy Barajas DO URINE ORDERABLES [facility] [phone] [facility] [address] [place] [address] documented in this encounter Visit Diagnoses Diagnosis Prediabetes- Primary Other abnormal glucose HTN (hypertension), benign Essential hypertension, benign Benign prostatic hyperplasia, unspecified whether lower urinary tract symptoms present Chronic bilateral low back pain with sciatica, sciatica laterality unspecified Transaminitis Nonspecific elevation of levels of transaminase or lactic acid dehydrogenase (LDH) Type 2 diabetes mellitus without complication, without long-term current use of insulin documented in this encounter Care Teams Boat Tester Relationship Specialty Start Date End Date Buddy Barajas DO [address] [address] PCP - General Internal Medicine 10/01/23 08/09/24 documented as of this encounter
--- OUTSIDE RECORDS SUMMARY | 2024-11-23 00:48 | XMS_ITS | Encounter Summary ---
Author Organization [facility] Address [address] [place] [address] Care Team Providers Care Electronic Engineering Draftsperson Name Role Phone Asael Barajas DO Primary Care Provider Reason for Visit * Reason Onset Date Comments Medication Refill 11/24/2023 Encounter Details Date Type Department Care Team (Late st Contact Info) Description 11/24/2023 Refill [facility] - [place] [facility] [address] [address], [address] [place] [address] Asael Barajas DO [address] [facility] [address] [facility] [address] [place] [address] Chronic bilateral low back pain with sciatica, [...] encounter Miscellaneous Notes * Telephone Encounter - [place] - 11/24/2023 3:59 PM CST Medication Request Requested Prescriptions Pending Prescriptions Disp Refills diclofenac sodium 25 mg tablet,delayed release (VOLTAREN) 90 Tablet 0 Sig: Take 1 Tablet (25 mg) by mouth 3 times daily. Refill Preferred Pharmacy: [id number] - [facility] [address] [facility] [address]. Date of last encounter: 11/09/2023 Next Appointment: 03/31/2024 Asael Barajas DO Patient Contact Information: Home Phone Work Phone OARRAY SPECIALIST documented in this encounter Plan of Treatment Upcoming Encounters Date Type Department Care Team (Late st Contact Info) Description 12/15/2024 3:20 PM MICROARRAY SPECIALIST Office Visit [facility] [place] [address] [place] [address] [place] [address], [place] [address] Osman Wolfe MD [address] [place] [address] documented as of this encounter Visit Diagnoses Diagnosis Chronic bilateral low back pain with sciatica, sciatica laterality unspecified documented in this encounter Care Teams Electronic Engineering Draftsperson Relationship Specialty Start Date End Date Asael Barajas DO [address] [place] [address] [address] [place] [id number] PCP - General Internal Medicine 10/01/23 08/09/24 documented as of this encounter
--- OUTSIDE RECORDS SUMMARY | 2024-11-23 00:48 | XMS_ITS | Encounter Summary ---
Author Organization [facility] Address [address] [place] [address] Care Team Providers Care Front Counter Clerk Name Role Phone Asael Barajas DO Primary Care Provider [phone] Reason for Visit * Reason Onset Date Comments Medication Refill 11/09/2023 Encounter Details Date Type Department Care Team (Late st Contact Info) Description 11/09/2023 Refill [facility] [place] [facility] [address] [address], [address] [place] [address] Asael Barajas DO [address] [facility] [address] [place] [address] HTN (hypertension), benign (Primary Dx); Chronic bilateral low back pain [...] encounter Miscellaneous Notes * Telephone Encounter - Nidhi Gregorio - 11/09/2023 3:03 PM CST Medication Request Requested Prescriptions Pending Prescriptions Disp Refills amitriptyline 75 mg tablet (ELAVIL) Sig: Take 1 Tablet (75 mg) by mouth daily at bedtime. amLODIPine 5 mg tablet (NORVASC) Sig: Take 1 Tablet (5 mg) by mouth daily. diclofenac sodium 25 mg tablet,delayed release (VOLTAREN) Sig: Take 1 Tablet (25 mg) by mouth 3 times daily. Refill Preferred Pharmacy: [facility][id number] - [place] [address] [address] [facility] [address]. Date of last encounter: 10/01/2023 Next Appointment: 03/31/2024 Asael Barajas DO Patient Contact Information: Home Phone Work Phone DECK TENDER documented in this encounter Plan of Treatment Upcoming Encounters Date Type Department Care Team (Late st Contact Info) Description 12/15/2024 3:20 PM LOG DECK TENDER Office Visit [facility] [address] [place], [place] [address], [place] [address] Osman Wolfe MD [address] [place] [address] documented as of this encounter Visit Diagnoses Diagnosis HTN (hypertension), benign- Primary Essential hypertension, benign Chronic bilateral low back pain with sciatica, sciatica laterality unspecified documented in this encounter Care Teams Front Counter Clerk Relationship Specialty Start Date End Date Asael Barajas DO [address] [place] [address] [address] [place] [address] PCP - General Internal Medicine 10/01/23 08/09/24 documented as of this encounter
--- OUTSIDE RECORDS SUMMARY | 2024-11-23 00:48 | XMS_ITS | Encounter Summary ---
[facility] Organization [facility] Address [address] [place] [address] Care Team Providers Care Lay Out Helper Name Role Phone Unavailable Primary Care Provider Unavailabl e Reason for Visit * Reason Comments Leg Pain patient states legs have hurt since wednesday morning, states he has a tear in his lef hip . Encounter Details Date Type Department Care Team (Late st Contact Info) Description 07/19/2014 6:48 PM CDT - 07/19/2014 8:40 PM CDT Emergency [facility] [address] [address] Ruthann Ferris FNP NO ADDRESS ON FILE Leg pain, anterior, right (Primary Dx) Discharge Disposition: Home or Self Care Social History Tobacco Use Types Packs/Day Years Used Date Smoking Tobacco: Never Alcohol Use Standard Drinks/Week Comments No 0 (1 standard drink = 0.6 oz pur e alcohol) Sex and Gender Information Value Date Recorded Sex Assigned at Not on file Gender Identity Not on file Sexual Orientation Not on file documented as of this encounter Last Filed Vital Signs Vital Sign Reading Time Taken Comments Blood Pressure 112/80 07/19/2014 6:39 PM CDT Pulse - - Temperature 37 ??C (98.6 ??F) 07/19/2014 6:39 PM CDT Respiratory Rate 18 07/19/2014 6:39 PM CDT Oxygen Saturation 97% 07/19/2014 6:39 PM CDT Inhaled Oxygen Concentration - - Weight 90.7 kg (200 lb) 07/19/2014 6:39 PM CDT Height 180.3 cm (5' 11 ) 07/19/2014 6:39 PM CDT Body Mass Index 27.89 07/19/2014 6:39 PM CDT documented in this encounter Discharge Instructions * Discharge Instructions* Ruthann Wang FNP - 07/19/2014 7:53 PM CDT Take your home pain medications as prescribed. Follow up with Dr. Pelaez for further evaluation of your leg pain. Follow up with Dr. Hernandez to initiate primary care. Do not drive while taking Flexeril.Return if worse. * Attachments The following attachments cannot be sent through Care Everywhere. * LEG PAIN (SINHALA) documented in this encounter Medications at Time of Discharge Medication Sig Dispensed Refills Start Date End Date naproxen (NAPROSYN) 250 mg tablet Take 250 mg by mouth 2 times daily with meals. 10/01/2023 documented as of this encounter ED Notes * Sachi London RN - 07/19/2014 8:39 PM CDT Pt given one prescription. Patient discharged to home via ambulatory refusing wheelchair with family. Patient states feeling better. Discharge information and education provided to patient. Questionsanswered, understanding of discharge instruction verbalized. Printed copy given. * Ruthann Wang FNP - 07/19/2014 7:39 PM CDT HISTORY OF PRESENT ILLNESS Edilberto Ellington Chandan Guido, a 58 y.o. male presents to the ED with a Chief Complaint of Leg Pain The history is provided by the patient. No catalogue clerk was used. The patient arrived by private vehicle. The patient arrived from home. Leg Pain This is a chronic problem. The problem occurs constantly. The problem has been gradually worsening.The pain is present in the right hip, right lower leg, right upper leg, left lower leg, left upper leg and left hip. The pain is at a severity of 10/10. Pertinent negatives include no numbness. The symptoms are aggravated by activity. Pt reporting chronic bilateral leg pain. States he has a torn muscle in his left hip that was diagnosed at [facility]. Received a steroid injection in his left hip 1 month ago, which has provided minimal relief. Pt's right leg has been hurting more recently. States he has a ruptured lumbar disc and needs to see a spinal surgeon. Pt describes his right leg pain as burning. Pt is ambulatory with pain. Has been using his wheelchair and walker recently to help with ambulation. Pt has a follow up appointment at [facility] on Jul 25, but would like referrals to ortho and neurosurgery in the area to initiate care with. Pt takes Oxycontin and Percocet for his chronic pain. REVIEW OF SYSTEMS Review of Systems Musculoskeletal: Positive for myalgias, arthralgias and gait problem. Negative for joint swelling. Skin: Negative for color change, pallor, rash and wound. Neurological: Negative for numbness. PAST MEDICAL HISTORY REVIEWED MEDICAL Patient has a past medical history of GERD (gastroesophageal reflux disease); Back pain, chronic; and Arthritis. SURGICAL Patient has past surgical history that includes shoulder surgery and chg forearm/wrist surgery unlisted. FAMILY Patient's family history is not on file. SOCIAL reports that he has never smoked. He does not have any smokeless tobacco history on file. He reports that he does not drink alcohol or use illicit drugs. PROBLEM LIST Patient does not have a problem list on file. ALLERGIES Review of patient's allergies indicates no known allergies. HOME MEDICATIONS Discharge Medication List as of 07/19/2014 7:54 PM START taking these medications Details cyclobenzaprine (FLEXERIL) 10 mg tablet Take 1 Tab by mouth 3 times daily as needed for Pain., Disp-15 Tab, R-None CONTINUE these medications which have NOT CHANGED Details oxyCODONE (OXYCONTIN) 10 mg Controlled Release 12 hour tablet Take 30 mg by mouth every 12 hours. oxyCODONE-acetaminophen (PERCOCET) 5-325 mg tablet Take 1 Tab by mouth every 6 hours as needed for Pain, Moderate. naproxen (NAPROSYN) 250 mg tablet Take 250 mg by mouth 2 times daily with meals. PHYSICAL EXAM INITIAL VS BP: 112/80 mmHg (07/19/141838), Heart Rate (Monitored): 88 bpm (07/19/141838), Resp: 18 (839), Temp: 98.6 ??F (37 ??C) (07/19/141838), Temp src: Temporal (07/19/141838), SpO2: 97 % (07/19/141838), Height: 5' 11 (180.3 cm) (07/19/141838), Weight: 90.719 kg (07/19/141838), BMI (Calculated): 27.95 (07/19/141838) No LMP for male patient. Physical Exam Nursing note and vitals reviewed. Constitutional: He appears well-developed and well-nourished. No distress. Cardiovascular: Intact distal pulses. Musculoskeletal: Normal range of motion. He exhibits no edema. Right hip: He exhibits tenderness and bony tenderness. He exhibits normal range of motion. Left hip: He exhibits tenderness and bony tenderness. He exhibits normal range of motion. Right upper leg: He exhibits tenderness. He exhibits no bony tenderness, no swelling, no edema, no deformity and no laceration. Left upper leg: He exhibits tenderness. He exhibits no bony tenderness, no swelling, no edema, no deformity and no laceration. Right lower leg: He exhibits tenderness. He exhibits no bony tenderness, no swelling, no edema, no deformity and no laceration. Left lower leg: He exhibits tenderness. He exhibits no bony tenderness, no swelling, no edema, no deformity and no laceration. DIAGNOSTICS LAB: RADIOLOGY: EKG: PROCEDURES Procedures MEDICAL DECISION MAKING AND PLAN OF CARE REEVALUATION Pt agrees with plan to discharge to take home meds and with referrals. CASE DISCUSSED Medications Administered During the ED Stay from 07/19/2014 1835 to 07/20/2014 0236 Date/Time Order Dose Route Action 07/19/20142001 HYDROMORPHONE 1 MG/ML INJECTION SYRINGE 1 mg Given 07/19/20142000 ONDANSETRON HCL (PF) 4 MG/2 ML INJECTION SOLUTION 4 mg Given Discharge Medication List as of 07/19/2014 7:54 PM START taking these medications Details cyclobenzaprine (FLEXERIL) 10 mg tablet Take 1 Tab by mouth 3 times daily as needed for Pain., Disp-15 Tab, R-None CONTINUE these medications which have NOT CHANGED Details oxyCODONE (OXYCONTIN) 10 mg Controlled Release 12 hour tablet Take 30 mg by mouth every 12 hours. oxyCODONE-acetaminophen (PERCOCET) 5-325 mg tablet Take 1 Tab by mouth every 6 hours as needed for Pain, Moderate. naproxen (NAPROSYN) 250 mg tablet Take 250 mg by mouth 2 times daily with meals. LAST VITALS BP: 112/80 mmHg (07/19/141838), Heart Rate (Monitored): 88 bpm (07/19/141838), Resp: 18 (839), Temp: 98.6 ??F (37 ??C) (07/19/141838), Temp src: Temporal (07/19/141838), SpO2: 97 % (07/19/141838) CLINICAL IMPRESSION Final diagnoses: Leg pain, anterior, right CODING MDM Coding Reviewed: vitals and nursing note DISPOSITION, EDUCATION AND MEDICATION RECONCILIATION Medications reconciled. See after visit summary for patient education on discharged patients. * Peggy Cao, RN - 07/19/2014 7:14 PM CDT Pt seen and assessed. Pt oriented to room and call light. A&Ox4 . Respirations even and non labored. Pt skin PWD. Pt states right leg pain /10. Pt states that he as been having bilateral leg painthat is a burning sensation. Pt states that with movement, the pain shoots from hip down leg to foot. Pt placed in gown. 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 Office Visit [facility] [place] [address] [place] [address] Osman Wolfe MD [address] [place] [phone] documented as of this encounter Visit Diagnoses Diagnosis Leg pain, anterior, right- Primary documented in this encounter Administered Medications Inactive Administered Medications - up to 3 most recent administrations Medication Order MAR Action Action Date Dose Rate Site HYDROMORPHONE 1 MG/ML INJECTION SYRINGE 1 dose, Starting on Kaycee 07/19/14 at 1957, Until Kaycee 07/19/14 at 2001, Kiley BAUER: cabinet override Given 07/19/2014 8:02 PM CDT 1 mg ONDANSETRON HCL (PF) 4 MG/2 ML INJECTION SOLUTION 1 dose, Starting on Kaycee 07/19/14 at 1957, Until Kaycee 07/19/14 at 2000, Kiley BAUER: cabinet override Given 07/19/2014 8:01 PM CDT 4 mg documented in this encounter Active and Recently Administered Medications Times are shown in CDT. No Frequency Medication Order 07/17/2014 07/18/2014 07/19/2014 HYDROMORPHONE 1 MG/ML INJECTION SYRINGE (COMPLETED) 1 dose, Starting on Kaycee 07/19/14 at 1957, Until Kaycee 07/19/14 at 2001, Kiley BAUER: cabinet override 2001 (Given - Provid er: Peggy Cao, SUSANA) ONDANSETRON HCL (PF) 4 MG/2 ML INJECTION SOLUTION (COMPLETED) 1 dose, Starting on Kaycee 07/19/14 at 1957, Until Kaycee 07/19/14 at 2000, Kiley BAUER: cabinet override 2000 (Given - Provid er: Peggy Cao RN) documented in this encounter
--- OUTSIDE RECORDS SUMMARY | 2024-11-23 00:48 | XMS_ITS | Encounter Summary ---
Author Organization [facility] Address [address] [place] [address] Care Team Providers Care Presales Senior Specialist Name Role Phone Unavailable Primary Care Provider Unavailabl e Reason for Visit * Reason Comments Dizziness Encounter Details Date Type Department Care Team (Late st Contact Info) Description 08/13/2014 6:11 PM CDT - 08/13/2014 11:53 PM CDT Emergency [facility] [address] [id number] Chris Hays, [address] [address] Vertigo (Primary Dx); Mastoiditis of left side; Sciatica, right Discharge Disposition: Home or Self Care Social [...] Reading Time Taken Comments Blood Pressure 129/75 08/13/2014 11:52 PM CDT Pulse - - Temperature - - Respiratory Rate 16 08/13/2014 11:52 PM CDT Oxygen Saturation 98% 08/13/2014 11:52 PM CDT Inhaled Oxygen Concentration - - Weight 90.7 kg (200 lb) 08/13/2014 6:23 PM CDT Height 180.3 cm (5' 11 ) 08/13/2014 6:23 PM CDT Body Mass Index 27.89 08/13/2014 6:23 PM CDT documented in this encounter Discharge Instructions * Discharge Instructions* Chris Hays DO - 08/13/2014 11:[address] scan of the brain showed no brain tumor or obvious stroke. You have an inner ear infection on the left. Take the antibiotics (Cipro) and anti-dizzy pills (meclizine) as prescribed. Your CT of the low back showed large herniated disc. It is the most likely cause of your sciatica pain. You had a narcotic pain shot here that was very strong, so you cannot drive yourself home from the ER. Follow up with your pain doctor and your back specialist. Return to the ER if your condition worsens. Thank you. * Attachments The following attachments cannot be sent through Care Everywhere. * MASTOIDITIS (BARBADIAN) * VERTIGO (BARBADIAN) * SCIATICA (BARBADIAN) documented in this encounter Medications at Time of Discharge Medication Sig Dispensed Refills Start Date End Date ciprofloxacin (CIPRO) 500 mg tablet Take 1 Tab by mouth 2 times daily for 10 days. 20 Tab 0 08/13/2014 08/23/2014 naproxen (NAPROSYN) 250 mg tablet Take 250 mg by mouth 2 times daily with meals. 10/01/2023 documented as of this encounter ED Notes * Sachi London RN - 08/13/2014 11:52 PM CDT Patient discharged to home via ambulatory with steady gait with family. Patient states feeling better. Discharge information and education provided to patient. Questions answered, understanding of discharge instruction verbalized. Printed copy given. * Asael Witt RN - 08/13/2014 10:50 PM CDT Patient and updated on status, awaiting to speak with the patient and make decision on the next plan of care, patient states his getting more uncomfortably lying on the stretcher, patient intact with the monitor, will continue to monitor. * Asael Witt RN - 08/13/2014 9:07 PM CDT Pain meds given to patient PO, patient to CT now, no changes in patient status, no changes in vitalsigns will continue to monitor * Chris Hays DO - 08/13/2014 7:37 PM CDT HISTORY OF PRESENT ILLNESS Edilberto Hawley , a 58 y.o. male presents to the ED with a Chief Complaint of Dizziness beginning today around 1800 while he was going to sit down on the couch. He note the room began spinning. He notes it was persistent and lasted about 45 minutes. He states he was nauseated and vomited.He states his dizziness got worse when trying to stand up. He denies headache. He notes movement made the dizziness and vomiting worse as well. He denies this dizziness ever occuring before. He states dizzywith abrupt turning has been occurring for past few years, but nothing like tonight. He notes bilateral feet tingling tonight [employer]. He denies any new weakness tonight. He states since 07/16/14 he has not been able to walk without a walker due to burning sensation from his right hip radiating into his right leg. He notes he has been on chronic pain medications for 4 years for spinal arthritis and other orthopedic problems. He sees primary care doctor at [place] named Zachary De Souza. Duration: acute onset Timin Location: head Quality: room spinning tingling Modifying Factors: Nausea and Vomiting, feet tingling Associated signs & symptoms: Dizziness worse when standing and moving The history is provided by the patient. No pediatric speech language pathologist was used. The patient arrived by EMS. The patient arrived from scene. REVIEW OF SYSTEMS Review of Systems Constitutional: Negative for fever, chills and diaphoresis. No other stated complaints HENT: No other stated complaints Eyes: No other stated complaints Respiratory: Negative for shortness of breath. No other stated complaints Cardiovascular: Negative for chest pain. No other stated complaints Gastrointestinal: Positive for nausea and vomiting. Negative for abdominal pain. No other stated complaints Endocrine: No other stated complaints Genitourinary: Negative for dysuria. No other stated complaints Musculoskeletal: No other stated complaints Skin: Negative for color change. No other stated complaints Allergic/Immunologic: No other stated complaints Neurological: Positive for dizziness and numbness. Negative for weakness and headaches. Tingling in feet Hematological: No other stated complaints Psychiatric/Behavioral: Negative for self-injury. No other stated complaints All other systems reviewed and are negative. PAST MEDICAL HISTORY REVIEWED MEDICAL Patient has [...] allergies indicates no known allergies. HOME MEDICATIONS Patient's Home Medications Current Home Medications CYCLOBENZAPRINE (FLEXERIL) 10 MG TABLET NAPROXEN (NAPROSYN) 250 MG TABLET OXYCODONE (OXYCONTIN) 10 MG CONTROLLED RELEASE 12 HOUR TABLET OXYCODONE-ACETAMINOPHEN (PERCOCET) 5-325 MG TABLET Medications Modified during this Encounter Medications Discontinued during this Encounter PHYSICAL EXAM INITIAL VS BP: 138/90 mmHg (08/13/141822), Heart Rate (Monitored): 82 bpm (08/13/141822), Resp: 16 (), Temp: (not recorded), Temp src: (not recorded), SpO2: 96 % (08/13/141822), Height: 5' 11 (180.3 cm) (08/13/141822), Weight: 90.719 kg (08/13/141822), BMI (Calculated): 27.95 (08/13/141822) No LMP for male patient. Physical Exam Nursing note and vitals reviewed. Constitutional: He is oriented to person, place, and time. He appears well- developed and well-nourished. HENT: Head: Normocephalic and atraumatic. Mouth/Throat: Oropharynx is clear and moist. Eyes: Conjunctivae and EOM are normal. Pupils are equal, round, and reactive to light. No lateral nystagmus Neck: Normal range of motion. Neck supple. No JVD present. No tracheal deviation present. No thyromegaly present. Cardiovascular: Normal rate, regular rhythm, normal heart sounds and intact distal pulses. No murmur heard. Pulmonary/Chest: Effort normal and breath sounds normal. No respiratory distress. He has no wheezes. He has no rales. He exhibits no tenderness. Abdominal: Soft. Bowel sounds are normal. He exhibits no distension. There is no tenderness. There is no rebound and no guarding. Musculoskeletal: Normal range of motion. He exhibits tenderness. He exhibits no edema. Tender right SI joint Lymphadenopathy: He has no cervical adenopathy. Neurological: He is alert and oriented to person, place, and time. No cranial nerve deficit. Coordination normal. No facial droop Decreased sensation to right leg (the one that has been burning for the past month) NIH stroke scale 1, suspected from Sciatica Skin: Skin is warm and dry. No rash noted. No erythema. No pallor. Psychiatric: He has a normal mood and affect. His behavior is normal. Differential Diagnoses: Differentials include, but are not limited to; Labyrinthitis, Vestibular neuronitis, Sciatica, ICH, CVA, Brain tumor DIAGNOSTICS LAB: Results for orders placed during the hospital encounter of 08/13/14 (from the past 24 hour(s)) URINALYSIS WITH REFLEX CULTURE Result Value Range COLOR UA Yellow Pale to Dark Yellow CLARITY UA Clear Clear SPECIFIC GRAVITY UA 1.026 1.003-1.035 PH UA 6.0 5.0-8.0 LEUKOCYTE ESTERASE UA Negative Negative NITRITE UA Negative Negative PROTEIN UA Negative Negative GLUCOSE UA Negative Negative KETONES UA 5 mg/dL (*) Negative UROBILINOGEN UA 0.2 <2.0 mg/dL BILIRUBIN UA Negative Negative BLOOD UA Negative Negative WBC UA 0-2 0-2 /hpf RBC UA 3-5 (*) 0-2 /hpf BACTERIA UA Negative Negative /hpf EPITHELIAL CELLS, URINE 0-5 0-5 /hpf HYALINE CAST 3-5 (*) None Seen, 0-2 /lpf DRUG SCREEN, URINE Result Value Range AMPHETAMINE QUAL, URINE Negative Negative BARBITURATE QUAL, URINE Negative Negative BENZODIAZEPINE QUAL, URINE Negative Negative COCAINE QUAL URINE Negative Negative OPIATE QUAL, URINE Presumptive Positive (*) Negative CANNABINOIDS QUAL, URINE Negative Negative PCP QUAL, URINE Negative Negative CREATININE, URINE 259.7 40.0-278.0 mg/dL CBC WITH DIFFERENTIAL Result Value Range WBC 13.1 (*) 4.0-11.0 K/uL RBC 5.54 4.60-6.20 M/uL HEMOGLOBIN 17.8 (*) 13.5-17.0 g/dL HEMATOCRIT 49.1 40.0-54.0 % MCV 88.6 80.0-98.0 fL MCH 32.1 26.0-34.0 pg MCHC 36.3 31.0-37.0 g/dL RDW 11.7 11.5-14.5 % RDW-STDEV 37.4 34.0-54.0 fL PLATELETS 250 150-400 K/uL MPV 10.3 8.5-12.5 fL NEUTROPHILS 55 50-70 % LYMPHOCYTES 34 20-40 % MONOCYTES 8 2-8 % EOSINOPHILS 3 1-3 % BASOPHILS 1 0-1 % NEUTROPHIL ABSOLUTE 7.14 1.80-7.70 K/uL LYMPHOCYTE ABSOLUTE 4.46 (*) 1.00-3.30 K/uL MONOCYTE ABSOLUTE 1.03 (*) 0.00-0.80 K/uL EOSINOPHIL ABSOLUTE 0.32 0.00-0.45 K/uL BASOPHILS ABSOLUTE 0.06 0.00-0.20 K/uL IMMATURE GRANULOCYTES 0 0-2 % IMMATURE GRANULOCYTES ABSOLUTE 0.05 0.00-0.31 K/uL COMPREHENSIVE METABOLIC PANEL Result Value Range SODIUM 137 133-145 mmol/L POTASSIUM 3.0 (*) 3.3-5.3 mmol/L CHLORIDE 99 (*) 101-111 mmol/L CO2 22 (*) 23-34 mmol/L CALCIUM 10.7 (*) 8.2-10.2 mg/dL BUN 21 5-25 mg/dL CREATININE 1.08 0.61-1.24 mg/dL GLUCOSE 150 (*) 70-115 mg/dL TOTAL PROTEIN 8.9 (*) 6.0-8.8 g/dL ALBUMIN 5.2 3.5-5.5 g/dL BILIRUBIN TOTAL 1.5 (*) 0.1-1.0 mg/dL ALKALINE PHOSPHATASE 101 40-115 U/L AST 52 (*) 13-45 U/L ALT 56 14-63 U/L GFR >60 >=60 mL/min/1.73 sq meter GFR, >60 >=60 mL/min/1.73 sq meter ANION GAP 16 (*) 5-15 TROPONIN Result Value Range TROPONIN I 0.01 0.00-0.04 ng/mL CK Result Value Range CK 93 49-397 U/L CKMB Result Value Range CKMB 1.6 0.6-6.3 ng/mL SPECIMEN HOLD, BLOOD Result Value Range EXTRA TUBE RECEIVED Red SPECIMEN HOLD, BLUE TOP Result Value Range EXTRA TUBE RECEIVED Blue SEDIMENTATION RATE Result Value Range ESR (SEDIMENTATION RATE) 34 (*) 0-20 mm/Hr POC TROPONIN Result Value Range POC TROPONIN I 0.00 0.00-0.04 ng/mL Laboratory Studies: Ordered and independently interpreted laboratory tests, see above. RADIOLOGY: CT HEAD WO CONTRAST (Results Pending) XR CHEST PA OR AP (Results Pending) CT LUMBAR SPINE WO CONTRAST (Results Pending) Imaging Results CT LUMBAR SPINE WO CONTRAST (Preliminary result) Result time: 08/13/14 21:41:40 Preliminary result by Pool Watters MD (08/13/14 21:41:40) Impression: : No lumbar compression fracture seen. Disc space narrowing at L2-L3. There are disc changes suggested throughout the spine MRI recommended for more sensitive evaluation, but there is probably a large broad-based posterior protrusion in addition to disc bulging at L3-L4.and bulges At multiple other levels XR CHEST PA OR AP (Preliminary result) Result time: 08/13/14 19:25:37 Preliminary result by Pool Watters MD (08/13/14 19:25:37) Impression: : Left hilar and infrahilar infiltrate versus localized congestion. Prominent right and right hilar markings as well. CT HEAD WO CONTRAST (Preliminary result) Result time: 08/13/14 19:19:50 Preliminary result by Pool Watters MD (08/13/14 19:19:50) Impression: : Grossly unremarkable brain. There is some left mastoid opacification which is likely chronic. EK NSR 84bpm LAD No acute st seg noted Signed and interpreted by the Emergency Physician. Time Interpreted: 1953 Rate: 84 BPM Rhythm: NSR Hornick: LAD IST Segments: No acute ST or T wave changes otherwise noted PROCEDURES Procedures No procedures performed. MEDICAL DECISION MAKING AND PLAN OF CARE REEVALUATION CASE DISCUSSED Medications Administered During the ED Stay from 08/13/2014 1810 to 08/13/2014 2310 Date/Time Order Dose Route Action 08/13/20142235 levofloxacin (LEVAQUIN) 750 mg/150 mL in D5W IVPB 750 mg 0 mg IV Stopped 08/13/20142058 levofloxacin (LEVAQUIN) 750 mg/150 mL in D5W IVPB 750 mg 750 mg IV New Bag 08/13/20142056 potassium chloride (K-DUR) SR tablet 40 mEq 40 mEq Oral Given 08/13/20142058 sodium chloride 0.9% bolus solution 1,000 mL 1,000 mL IV New Bag 08/13/20142100 meclizine (ANTIVERT) tablet 25 mg 25 mg Oral Given 08/13/20142056 oxyCODONE-acetaminophen (PERCOCET) 5-325 mg per tablet 1 Tab 1 Tab Oral Given Also ordered IV dilaudid prior to discharge for his sciatica pain. . New Prescriptions for this Encounter CIPROFLOXACIN (CIPRO) 500 MG TABLET Take 1 Tab by mouth 2 times daily for 10 days. MECLIZINE (ANTIVERT) 25 MG TABLET Take 1 Tab by mouth 3 times daily as needed for Dizziness or Nausea. LAST VITALS BP: 124/102 mmHg (08/13/142129), Heart Rate (Monitored): 76 bpm (08/13/142129), Resp: 18 (08/13/142129), Temp: (not recorded), Temp src: (not recorded), SpO2: 99 % (08/13/142129) CLINICAL IMPRESSION Final diagnoses: Vertigo Mastoiditis of left side Sciatica, right CODING MDM Coding Reviewed: vitals and nursing note Interpretation: cardiac monitoring, SP02, ECG, labs, CT scan and x-ray Disposition: Discharge home DISCHARGE INSTRUCTIONS: Your CT scan of the brain showed no brain tumor or obvious stroke. You have an inner ear infection on the left. Take the antibiotics (Cipro) and anti-dizzy pills (meclizine) as prescribed. Your CT of the low back showed large herniated disc. It is the most likely cause of your sciatica pain. You had a narcotic pain shot here that was very strong, so you cannot drive yourself home from the ER. Follow up with your pain doctor and your back specialist. Return to the ER if your condition worsens. Thank you. DISPOSITION, EDUCATION AND MEDICATION RECONCILIATION Medications reconciled. See after visit summary for patient education on discharged patients. Date 08/13/14, Time 1937 This note is prepared by Ivy Harris, acting as Scribe for Chris Hays MD/. Time 2306 Physician Attestation: The scribe's documentation has been prepared under my direction and personally reviewed by me in its entirety. I confirm that the note above accurately reflects all work, treatment, procedures, and medical decision making performed by Chris Hays DO.. * Eden Elizabeth RN - 08/13/2014 6:11 PM CDT Bed: 01 Expected date: 08/13/14 Expected time: 6:03 PM Means of arrival: [facility] Comments: [birth year] - 48 y/o male with dizziness and n/v, IV established + blood, a & o x 3. VSS per EMS documented in this encounter Plan of Treatment Upcoming Encounters Date Type Department Care Team (Late st Contact Info) Description 12/15/2024 3:20 PM CHAIR CANER Office Visit [facility] [place] [address] [place] [phone] Osman Wolfe MD [address] [place] [phone] documented as of this encounter Procedures Procedure Name Priority Date/Time Associated Diagnosis Comments CT LUMBAR SPINE WO CONTRAST Stat 08/13/2014 9:10 PM CDT BLOOD CULTURE Stat 08/13/2014 8:30 PM CDT BLOOD CULTURE Stat 08/13/2014 8:00 PM CDT XR CHEST PA OR AP 1 VW Stat 4 7:[address] HEAD WO CONTRAST Stat 08/13/2014 7 :01 PM CDT POC TROPONIN Stat 08/13/2014 6:47 PM CDT SPECIMEN HOLD, BLUE TOP Stat 08/13/2014 6:45 PM CDT SPECIMEN HOLD, BLOOD Stat 08/13/2014 6:45 PM CDT CKMB Stat 08/13/2014 6:45 PM CDT CBC WITH DIFFERENTIAL Stat 08/13/2014 6:45 PM CDT SEDIMENTATION RATE Add on 08/13/2014 6: 45 PM CDT TROPONIN Stat 08/13/2014 6:45 PM CDT CK Stat 08/13/2014 6:45 PM CDT COMPREHENSIVE METABOLIC PANEL Stat 08/13/2014 6:45 PM CDT URINALYSIS WITH REFLEX CULTURE Stat 08/13/2014 6:44 PM CDT DRUG SCREEN, URINE Stat 08/13/2014 6: 44 PM CDT EKG 12-LEAD Stat 08/13/2014 6:29 PM CDT OXYGEN VIA DEVICE TO KEEP O2 SAT ABOVE Stat 08/13/2014 6:27 PM CDT PULSE OXIMETRY, CONTINUOUS Stat 08/13/2014 6:27 PM CDT documented in this encounter Results * CT LUMBAR SPINE WO CONTRAST (08/13/2014 9:10 PM CDT) Anatomical Region Laterality Modality Spine Computed Tomogra phy 08/13/2014 8:58 PM CDT Impressions 08/14/2014 10:44 PM CDT IMPRESSION: No lumbar compression fracture seen. Disc space narrowing at L2-L3. There are disc changes suggested throughout the spine as above noted, MRI recommended for a more sensitive evaluation, but there is probably a large broad-based posterior protrusion in addition to disc bulging at L3-L4. Narrative 08/14/2014 10:[address] LUMBAR SPINE HISTORY: Pain. TECHNIQUE: ??CT of the lumbar spine was performed. Images were obtained from the thoracolumbar junction through the lumbosacral junction. There is no previous CT for comparison. FINDINGS: ??There is some increased density in the stomach which may represent contrast or ingested dense material such as tablets. The liver is probably enlarged but only partially imaged. There is no opaque calculus seen in the visualized portion of either kidney. There is a small hyperdense mass in the posterior aspect of the right kidney which is likely a hyperdense cyst, it is less than 5 mm in diameter, consider sonographic correlation. There is straightening of the lumbar curve. There is degenerative change in the posterior elements. There are marginal osteophytes. There is disc space narrowing at L2-L3. No lumbar compression fracture is seen. An MRI is a much more sensitive study to evaluate discs. Probable disc bulging at T10-T11 and T11-T12. There may be minimal disc bulging at T12-L1. There is disc bulging at L1-L2. There is some degenerative change in the posterior elements and mild posterolateral impressions on the thecal sac but the smallest AP dimensions of the thecal sac in the midline are approximately 14 mm. ??At L2-L3 there is a more prominent disc change, probably diffuse disc bulging. The smallest AP dimensions of the thecal sac may be as small as 10.8 mm. At L3-L4, there again is a disc change, it is probably disc bulging with superimposed central protrusion as there appears to be prominent posterior extension of disc in the midline. The smallest dimensions of the thecal sac are probably 7.9 mm. The disc may be as much as 8 to 9 mm extending posteriorly. At L4-L5 disc changes are present consistent with disc bulging. The smallest AP dimensions of the thecal sac are approximately 14.7 mm. Mild posterolateral impressions are present on the thecal sac from the degenerative changes in the posterior elements. At L5-S1 there is right lateralizing disc material, probably bulging. There is neural foramen narrowing on the right. Procedure Note Pool Watters MD - 08/14/2014 CT LUMBAR SPINE HISTORY: Pain. TECHNIQUE: CT of the lumbar spine was performed. Images were obtained from the thoracolumbar junction through the lumbosacral junction. There is no previous CT for comparison. FINDINGS: There is some increased density in the stomach which may represent contrast or ingested dense material such as tablets. The liver is probably enlarged but only partially imaged. There is no opaque calculus seen in the visualized portion of either kidney. There is a small hyperdense mass in the posterior aspect of the right kidney which is likely a hyperdense cyst, it is less than 5 mm in diameter, consider sonographic correlation. There is straightening of the lumbar curve. There is degenerative change in the posterior elements. There are marginal osteophytes. There is disc space narrowing at L2-L3. No lumbar compression fracture is seen. An MRI is a much more sensitive study to evaluate discs. Probable disc bulging at T10-T11 and T11-T12. There may be minimal disc bulging at T12-L1. There is disc bulging at L1-L2. There is some degenerative change in the posterior elements and mild posterolateral impressions on the thecal sac but the smallest AP dimensions of the thecal sac in the midline are approximately 14 mm. At L2-L3 there is a more prominent disc change, probably diffuse disc bulging. The smallest AP dimensions of the thecal sac may be as small as 10.8 mm. At L3-L4, there again is a disc change, it is probably disc bulging with superimposed central protrusion as there appears to be prominent posterior extension of disc in the midline. The smallest dimensions of the thecal sac are probably 7.9 mm. The disc may be as much as 8 to 9 mm extending posteriorly. At L4-L5 disc changes are present consistent with disc bulging. The smallest AP dimensions of the thecal sac are approximately 14.7 mm. Mild posterolateral impressions are present on the thecal sac from the degenerative changes in the posterior elements. At L5-S1 there is right lateralizing disc material, probably bulging. There is neural foramen narrowing on the right. IMPRESSION IMPRESSION: No lumbar compression fracture seen. Disc space narrowing at L2-L3. There are disc changes suggested throughout the spine as above noted, MRI recommended for a more sensitive evaluation, but there is probably a large broad-based posterior protrusion in addition to disc bulging at L3-L4. Chris Hays DO CT ORDERABLES * BLOOD CULTURE (08/13/2014 8:30 PM CDT) PRELIMINARY MICRO REPORT No growth to date at 72 hours 08/19/2014 6:00 AM CDT [facility] FINAL MICRO REPORT No growth at 5 Days 08/19/2014 6:00 AM T [facility] Blood (Peripheral) Venipuncture - Floor Collect / Unknown 08/13/2014 8:30 PM CDT 08/13/2014 11:34 PM CDT Chris Hays DO MICROBIOLOGY - GENER AL ORDERABLES [id number] [address] [place] [address] * (ABNORMAL) BLOOD CULTURE (08/13/2014 8:00 PM CDT) PRELIMINARY MICRO REPORT Propionibacterium acnes isolated. (1 bottle out of 2) Susceptibility on request only.(A) 08/21/2014 12:26 PM CDT [facility] GRAM STAIN Gram Positive Rods seen (1 bottle out of 2) - Phoned report (with read back verified) to Zac Cotton ??([facility] ?? 08/19/14 7:40:17(A) 08/21/2014 12:26 PM CDT [facility] FINAL MICRO REPORT Propionibacterium acnes isolated. (1 bottle out of 2) Susceptibility on request only.(A) 08/21/2014 12:26 PM CDT [facility] Blood (Peripheral) Venipuncture - Floor Collect / Unknown 08/13/2014 8:00 PM CDT 08/13/2014 11:33 PM CDT Narrative [facility] - 08/21/2014 12:26 PM CDT Wait 5-15 minutes before obtaining the second set of blood cultures. Chris Hays DO MICROBIOLOGY - GENER AL ORDERABLES [facility] CLIA# [id number] [address] [place] [address] * XR CHEST PA OR AP (08/13/2014 7:20 PM CDT) Anatomical Region Laterality Modality Chest Computed Radiogr aphy 08/13/2014 7:10 PM CDT Impressions 08/14/2014 1:45 AM CDT IMPRESSION: Left hilar and infrahilar infiltrate versus localized congestion. Prominent right hilar markings as well. Narrative 08/14/2014 1:45 AM CDT CHEST HISTORY: Dizziness, weakness. FINDINGS: Portable AP upright view of the chest was performed dated 08/13/2014 at 1907 hours. There is no previous exam for comparison. The heart size is at the upper limits of normal. There is left hilar and infrahilar infiltrate versus localized congestion. There are some prominent markings in the right perihilar region as well. Follow after treatment. Procedure Note Pool Watters MD - 08/14/2014 CHEST HISTORY: Dizziness, weakness. FINDINGS: Portable AP upright view of the chest was performed dated 08/13/2014 at 1907 hours. There is no previous exam for comparison. The heart size is at the upper limits of normal. There is left hilar and infrahilar infiltrate versus localized congestion. There are some prominent markings in the right perihilar region as well. Follow after treatment. IMPRESSION IMPRESSION: Left hilar and infrahilar infiltrate versus localized congestion. Prominent right hilar markings as well. Chris Hays DO DIAGNOSTIC IMAGING O RDERABLES * CT HEAD WO CONTRAST (08/13/2014 7:01 PM CDT) Anatomical Region Laterality Modality Head Computed Tomogra phy 08/13/2014 6:51 PM CDT Impressions 08/14/2014 1:45 AM CDT IMPRESSION: Grossly unremarkable brain. There is some left mastoid opacification which is likely chronic. Narrative 08/14/2014 1:[address] HEAD HISTORY: Dizziness. TECHNIQUE: CT of the head was performed. Images were obtained from skull base to vertex. FINDINGS: There is ethmoid mucoperiosteal thickening. There is minimal mucoperiosteal thickening of the anterior sphenoid sinus. The visualized mastoids on the right are aerated. There is some opacification on the left which is probably chronic. The ventricles are within normal limits in size and shape. No midline shift is seen. The barnett/white matter differentiation is present. The exam is otherwise unremarkable. Streak artifact from the thick skull base does obscure some detail in the lower most images. If there are persistent unexplained symptoms, consider MRI followup. Procedure Note Pool Watters MD - 08/14/2014 CT HEAD HISTORY: Dizziness. TECHNIQUE: CT of the head was performed. Images were obtained from skull base to vertex. FINDINGS: There is ethmoid mucoperiosteal thickening. There is minimal mucoperiosteal thickening of the anterior sphenoid sinus. The visualized mastoids on the right are aerated. There is some opacification on the left which is probably chronic. The ventricles are within normal limits in size and shape. No midline shift is seen. The barnett/white matter differentiation is present. The exam is otherwise unremarkable. Streak artifact from the thick skull base does obscure some detail in the lower most images. If there are persistent unexplained symptoms, consider MRI followup. IMPRESSION IMPRESSION: Grossly unremarkable brain. There is some left mastoid opacification which is likely chronic. Protocol [facility] ORDERABLES * POC TROPONIN (08/13/2014 6:47 PM CDT) TROPONIN I POC 0.00 0.00 - 0.04 ng/mL 08/13/2014 6:55 PM CDT [facility] Blood 08/13/2014 6:47 PM CDT 08/13/2014 6:55 PM CDT Narrative [facility] - 08/13/2014 6:55 PM CDT TROPONIN ? Normal ? 0.00-0.04 ng/mL Myocardical Injury ?? >0.04 ng/mL Interface Provider Poct POINT OF CARE TE STING Performing Organization Address [facility] de Phone Number [facility] CLIA # [id number] [address] [place] [address] * (ABNORMAL) SEDIMENTATION RATE (08/13/2014 6:45 PM CDT) ESR (SEDIMENTATION RATE) 34(H) 0 - 20 mm/Hr 08/13/2014 9:12 PM CDT [facility] Blood Venipuncture - Floor Collect / Unknown 08/13/2014 6:45 PM CDT 08/13/2014 6:53 PM CDT Chris Hays DO HEMATOLOGY ORDERABLE S Performing Organization Address [facility] de Phone Number [facility] CLIA # [id number] [address] [address] * SPECIMEN HOLD, BLUE TOP (08/13/2014 6:45 PM CDT) EXTRA TUBE RECEIVED Blue 08/13/2014 6:57 PM CDT [facility] Blood Venipuncture - Floor Collect / Unknown 08/13/2014 6:45 PM CDT 08/13/2014 6:53 PM CDT Protocol [facility] [place] MD CHEMISTRY ORD ERABLES Performing Organization Address [facility] Co de Phone Number [facility] CLIA # [id number] Counts Include [address] At [facility] [address] [place] [address] * SPECIMEN HOLD, BLOOD (08/13/2014 6:45 PM CDT) Pathologist [facility] EXTRA TUBE RECEIVED Red 08/13/2014 7:01 PM CDT [facility] Blood Venipuncture - Floor Collect / Unknown 08/13/2014 6:45 PM CDT 08/13/2014 6:53 PM CDT Chris Hays DO CHEMISTRY ORDERABLES [facility] CLIA # [id number] Counts Include [address] At [facility] [address] [place] [address] * CKMB (08/13/2014 6:45 PM CDT) Pathologist [facility] CKMB 1.6 0.6 - 6.3 ng/mL 08/13/2014 7:36 PM CDT [facility] Blood Venipuncture - Floor Collect / Unknown 08/13/2014 6:45 PM CDT 08/13/2014 6:54 PM CDT Chris Hays DO CHEMISTRY ORDERABLES COM [facility] CLIA # [id number] [address] [place] [address] * CK (08/13/2014 6:45 PM CDT) Pathologist [facility] CK 93 49 - 397 U/L 08/13/2014 7:36 PM CDT [facility] Blood Venipuncture - Floor Collect / Unknown 08/13/2014 6:45 PM CDT 08/13/2014 6:54 PM CDT Chris Hays DO CHEMISTRY ORDERABLES [facility] CLIA # [id number] Counts Include [address] At [facility] [address] [place] [address] * TROPONIN (08/13/2014 6:45 PM CDT) [facility] TROPONIN I 0.01 0.00 - 0.04 ng/mL 08/13/2014 7:36 PM CDT [facility] Blood Venipuncture - Floor Collect / Unknown 08/13/2014 6:45 PM CDT 08/13/2014 6:54 PM CDT Narrative [facility] - 08/13/2014 7:36 PM CDT TROPONIN ? Normal ? 0.00-0.04 ng/mL Myocardical Injury ?? >0.04 ng/mL Chris Hays DO CHEMISTRY ORDERABLES [facility] CLIA # [id number] Counts Include [address] At [facility] [address] [place] [address] * (ABNORMAL) COMPREHENSIVE METABOLIC PANEL (08/13/2014 6:45 PM CDT) [facility] SODIUM 137 133 - 145 mmol/L 08/13/2014 7:36 PM T [facility] POTASSIUM 3.0(L) 3.3 - 5.3 mmol/L 08/13/2014 7:36 PM T [facility] CHLORIDE 99(L) 101 - 111 mmol/L 08/13/2014 7:36 PM T [facility] CO2 22(L) 23 - 34 mmol/L 08/13/2014 7:36 PM [facility] CALCIUM 10.7(H) 8.2 - 10.2 mg/dL 08/13/2014 7:36 PM COUNT INCLUDES [facility] BUN 21 5 - 25 mg/dL 08/13/2014 7:36 PM T [facility] CREATININE 1.08 0.61 - 1.24 mg/dL 08/13/2014 7:36 PM COUNT INCLUDES [facility] GLUCOSE 150(H) 70 - 115 mg/dL 08/13/2014 7:36 PM COUNT INCLUDES [facility] TOTAL PROTEIN 8.9(H) 6.0 - 8.8 g/dL 08/13/2014 7:36 PM COUNT INCLUDES [facility] ALBUMIN 5.2 3.5 - 5.5 g/dL 08/13/2014 7:36 PM COUNT INCLUDES [facility] BILIRUBIN TOTAL 1.5(H) 0.1 - 1.0 mg/dL 08/13/2014 7:36 PM COUNT INCLUDES [facility] ALKALINE PHOSPHATASE 101 40 - 115 U/L 08/13/2014 7:36 PM COUNT INCLUDES [facility] AST 52(H) 13 - 45 U/L 08/13/2014 7:36 PM COUNT INCLUDES [facility] ALT 56 14 - 63 U/L 08/13/2014 7:36 PM COUNT INCLUDES [facility] GFR >60 >=60 mL/min/1.7 3 sq meter 08/13/2014 7:36 PM COUNT INCLUDES [facility] Comment: eGFR has not been validated for use in the elderly (> 70 years of age), women, patients with serious co-morbid conditions, or persons with extremes of body size or muscle mass and should also be interpreted with caution in patients with acute kidney failure, dialysis dependent patients, patients reporting exceptional dietary intake (e.g. vegetarian diet, high protein diets, creatine supplementation), and patients with severe liver disease. Based on National Kidney Disease Education Program If patient is , please refer to the GFR result. GFR, >60 >=60 mL/min/1.7 3 sq meter 08/13/2014 7:36 PM COUNT INCLUDES [facility] [place] ANION GAP 16(H) 5 - 15 08/13/2014 7:36 PM COUNT INCLUDES [facility] Blood Venipuncture - Floor Collect / Unknown 08/13/2014 6:45 PM CDT 08/13/2014 6:54 PM CDT Chris Hays DO CHEMISTRY ORDERABLES [facility] [place] CLIA # [id number] Counts Include [address] At [facility] [address] [place] [address] * (ABNORMAL) CBC WITH DIFFERENTIAL (08/13/2014 6:45 PM CDT) WBC 13.1(H) 4.0 - 11.0 K/uL 08/13/2014 6:58 PM CDT [facility] [place] RBC 5.54 4.60 - 6.20 M/uL 08/13/2014 6:58 PM CDT [facility] [place] HEMOGLOBIN 17.8(H) 13.5 - 17.0 g/dL 08/13/2014 6:58 PM CDT [facility] [place] HEMATOCRIT 49.1 40.0 - 54.0 % 08/13/2014 6:58 PM CDT [facility] [place] MCV 88.6 80.0 - 98.0 fL 08/13/2014 6:58 PM CDT [facility] [place] MCH 32.1 26.0 - 34.0 pg 08/13/2014 6:58 PM CDT [facility] [place] MCHC 36.3 31.0 - 37.0 g/dL 08/13/2014 6:58 PM CDT [facility] [place] RDW 11.7 11.5 - 14.5 % 08/13/2014 6:58 PM CDT [facility] [place] RDW-STDEV 37.4 34.0 - 54.0 fL 08/13/2014 6:58 PM CDT [facility] [place] PLATELETS 250 150 - 400 K/uL 08/13/2014 6:58 PM CDT [facility] [place] MPV 10.3 8.5 - 12.5 fL 08/13/2014 6:58 PM CDT [facility] [place] NEUTROPHILS 55 50 - 70 % 08/13/2014 6:58 PM CDT [facility] [place] LYMPHOCYTES 34 20 - 40 % 08/13/2014 6:58 PM CDT [facility] [place] MONOCYTES 8 2 - 8 % 08/13/2014 6:58 PM CDT [facility] [place] EOSINOPHILS 3 1 - 3 % 08/13/2014 6:58 PM CDT [facility] [place] BASOPHILS 1 0 - 1 % 08/13/2014 6:58 PM CDT [facility] [place] NEUTROPHIL ABSOLUTE 7.14 1.80 - 7.70 K/uL 08/13/2014 6:58 PM CDT [facility] [place] LYMPHOCYTE ABSOLUTE 4.46(H) 1.00 - 3.30 K/uL 08/13/2014 6:58 PM CDT [facility] [place] MONOCYTE ABSOLUTE 1.03(H) 0.00 - 0.80 K/uL 08/13/2014 6:58 PM CDT [facility] [place] EOSINOPHIL ABSOLUTE 0.32 0.00 - 0.45 K/uL 08/13/2014 6:58 PM CDT [facility] [place] BASOPHILS ABSOLUTE 0.06 0.00 - 0.20 K/uL 08/13/2014 6:58 PM CDT [facility] [place] IMMATURE GRANULOCYTES 0 0 - 2 % 08/13/2014 6:58 PM CDT [facility] [place] IMMATURE GRANULOCYTES ABSOLUTE 0.05 0.00 - 0.31 K/uL 08/13/2014 6:58 PM CDT [facility] [place] Blood Venipuncture - Floor Collect / Unknown 08/13/2014 6:45 PM CDT 08/13/2014 6:53 PM CDT Chris Hays DO HEMATOLOGY ORDERABLE S [facility] [place] CLIA # [id number] Counts Include [address] At [facility] [address] [place] [address] * (ABNORMAL) DRUG SCREEN, URINE (08/13/2014 6:44 PM CDT) Pathologist [facility] AMPHETAMINE QUAL, URINE Negative Negative 08/13/2014 7:09 PM CDT [facility] [place] BARBITURATE QUAL, URINE Negative Negative 08/13/2014 7:09 PM CDT [facility] [place] BENZODIAZEPINE QUAL, URINE Negative Negative 08/13/2014 7:09 PM CDT [facility] [place] COCAINE QUAL URINE Negative Negative 08/13/2014 7:09 PM CDT [facility] OPIATE QUAL, URINE Presumptive Positive(A) Negative 08/13/2014 7:09 PM [facility] CANNABINOIDS QUAL, URINE Negative Negative 08/13/2014 7:09 PM T [facility] PCP QUAL, URINE Negative Negative 4 7:09 PM [facility] CREATININE, URINE 259.7 40.0 - 278.0 mg/dL 08/13/2014 7:09 PM [facility] Urine, clean catch Collection / Unknown 08/13/2014 6:44 PM CDT 08/13/2014 6:51 PM CDT Narrative [facility] - 08/13/2014 7:09 PM CDT CUT-OFF CONCENTRATIONS FOR EACH DRUG CLASS AMPHETAMINES ? 1000 ng/mL ? BARBITURATES ? 200 ng/mL ?? BENZODIAZEPINES ?200 ng/mL ?? COCAINE ?300 ng/mL ? OPIATES ?300 ng/mL ?? PHENCYCLIDINE ?25 ng/mL ?? PROPOXYPHENE ? 300 ng/mL CANNABINOID ?50 ng/mL ?? This test is a qualitative screen. The presumptive results should not be used for legal purposes. If confirmation of results is desired, the lab must be contacted without delay. Chris Hays DO URINE ORDERABLES [facility] CLIA # [id number] Counts Include [address] At [facility] [address] [place] [address] * (ABNORMAL) URINALYSIS WITH REFLEX CULTURE (08/13/2014 6:44 PM CDT) COLOR UA Yellow Pale to Dark Yellow 08/13/2014 7:09 PM [facility] [place] CLARITY UA Clear Clear 08/13/2014 7:09 PM T [facility] [place] SPECIFIC GRAVITY UA 1.026 1.003 - 1.035 08/13/2014 7:09 PM [facility] [place] PH UA 6.0 5.0 - 8.0 08/13/2014 7:09 PM [facility] [place] LEUKOCYTE ESTERASE UA Negative Negative 08/13/2014 7:09 PM [facility] [place] NITRITE UA Negative Negative 08/13/2014 7:09 PM [facility] [place] PROTEIN UA Negative Negative 08/13/2014 7:09 PM [facility] [place] GLUCOSE UA Negative Negative 08/13/2014 7:09 PM [facility] [place] KETONES UA 5 mg/dL(A) Negative 08/13/2014 7:09 PM [facility] [place] UROBILINOGEN UA 0.2 <2.0 mg/dL 4 7:09 PM [facility] [place] BILIRUBIN UA Negative Negative 08/13/2014 7:09 PM [facility] [place] BLOOD UA Negative Negative 08/13/2014 7:09 PM [facility] [place] WBC UA 0-2 0 - 2 /hpf 08/13/2014 7:09 PM [facility] [place] RBC UA 3-5(A) 0 - 2 /hpf 08/13/2014 7:09 PM [facility] [place] BACTERIA UA Negative Negative /hpf 08/13/2014 7:09 PM [facility] [place] EPITHELIAL CELLS, URINE 0-5 0 - 5 /hpf 08/13/2014 7:09 PM [facility] [place] HYALINE CAST 3-5(A) None Seen, 0-2 /lpf 08/13/2014 7:09 PM [facility] [place] Urine, clean catch Collection / Unknown 08/13/2014 6:44 PM CDT 08/13/2014 6:51 PM CDT Chris Hays DO URINE ORDERABLES [facility] [place] MARTINEZ # [id number] [address] [place] [address] * EKG 12-LEAD (08/13/2014 6:29 PM CDT) 08/13/2014 6:29 PM CDT Narrative INTERFACE SYSTEM - 08/14/2014 4:51 PM CDT ? Stationary ECG Study ? [facility] ? Test Date: ?08/13/2014 6:29:25 PM ? Pat Name: ? Edilberto Hawley ? Department: ?? 2000 ? Room: ? ED07 ED07 ? Gender: ? M ?Dental Technology Advisor: ?? mleon ? : ?1955 ? Requested by: ? Order Number: [id number] ?Reading MD: ?? Kemal Roukoz ? Intervals ?[place] ? Rate: ? 84 ? P: ?16 ? WY: ? 156 ?QRS: ?-27 ? QRSD: ? 96 ? T: ?29 ? QT: ? 381 ? QTc: ?421 ? Interpretive Statements SINUS RHYTHM BORDERLINE LEFT AXIS DEVIATION [QRS AXIS < -20] MINIMAL VOLTAGE CRITERIA FOR LVH, CONSIDER NORMAL VARIANT [MEETS CRITERIA IN ?ONE OF: R(aVL), S(V1), R(V5), R(V5/V6)+S(V1)] No previous ECG available for comparison Electronically Signed On 08-14-14 16:51:40 CDT by Kemal Collazo Procedure Note Kemal Collazo MD - 08/14/2014 Stationary ECG Study [facility] Test Date: 08/13/2014 6:29:25 PM Pat Name: Edilberto Hawley Department: 1999 Room: [place] [address] Gender: M Dental Technology Advisor: marc : 1955 Requested by: Order Number: [id number] Reading MD: Kemal Collazo Intervals [place] Rate: 84 P: 16 WY: 156 QRS: -27 QRSD: 96 T: 29 QT: 381 QTc: 421 Interpretive Statements SINUS RHYTHM BORDERLINE LEFT AXIS DEVIATION [QRS AXIS < -20] MINIMAL VOLTAGE CRITERIA FOR LVH, CONSIDER NORMAL VARIANT [MEETS CRITERIAIN ONE OF: R(aVL), S(V1), R(V5), R(V5/V6)+S(V1)] No previous ECG available for comparison Electronically Signed On 08-14-14 16:51:40 CDT by Kemal Collazo Chris Hays DO ECG ORDERABLES INTERFACE SYSTEM Refer to clinic/hospital department documented in this encounter Visit Diagnoses Diagnosis Vertigo- Primary Dizziness and giddiness Mastoiditis of left side Unspecified mastoiditis Sciatica, right documented in this encounter Administered Medications Inactive Administered Medications - up to 3 most recent administrations Medication Order MAR Action Action Date Dose Rate Site hydromorPHONE (DILAUDID) 1 mg/mL syringe 1 mg 1 mg, IV, ONE TIME ONLY, 1 dose, On 08/13/14 at 2315, Routine Given 08/13/2014 11:17 PM CDT 1 mg levofloxacin (LEVAQUIN) 750 mg/150 mL in D5W IVPB 750 mg 750 mg, IV, EVERY 24 HOURS, First dose on Wed08/13/14 at 2014, Until Discontinued, Routine, Antibiotic Indication: Pneumonia - Community-acquired(CAP) New Bag 08/13/2014 8:59 PM CDT 750 mg 100 mL/ hr meclizine (ANTIVERT) tablet 25 mg 25 mg, Oral, ONE TIME ONLY, 1 dose, On Wed08/13/14 at 2014, Routine Given 08/13/2014 9:01 PM CDT 25 mg oxyCODONE-acetaminophen (PERCOCET) 5-325 mg per tablet 1 Tab 1 Tablet, Oral, ONE TIME ONLY, 1 dose, On Wed08/13/14 at 2014, Routine Given 08/13/2014 8:57 PM CDT 1 Tablet potassium chloride (K-DUR) SR tablet 40 mEq 40 mEq, Oral, ONE TIME ONLY, 1 dose, On Wed08/13/14 at 2014, Routine Given 08/13/2014 8:57 PM CDT 40 mEq sodium chloride 0.9% bolus solution 1,000 mL 1,000 mL, IV, ONE TIME ONLY, 1 dose, On Wed08/13/14 at 2014, at 2,000 mL/hr, Administer over 30 Minutes, Routine New Bag 08/13/2014 8:59 PM CDT 1,000 mL 2000 mL/hr documented in this encounter Active and Recently Administered Medications Times are shown in CDT. Scheduled Medication Order 08/11/2014 08/12/2014 08/13/2014 hydromorPHONE (DILAUDID) 1 mg/mL syringe 1 mg (COMPLETED) 1 mg, IV, ONE TIME ONLY, 1 dose, On Wed08/13/14 at 2315, Routine 2317 (Given - Provid er: Asael Witt RN) levofloxacin (LEVAQUIN) 750 mg/150 mL in D5W IVPB 750 mg (CANCELED) 750 mg, IV, EVERY 24 HOURS, First dose on Wed08/13/14 at 2014, Until Discontinued, Routine, Antibiotic Indication: Pneumonia - Community-acquired(CAP) 2058 (New Bag - Prov ider: Asael Witt RN)2235 (Stopped - Provider: Asael Witt RN) meclizine (ANTIVERT) tablet 25 mg (COMPLETED) 25 mg, Oral, ONE TIME ONLY, 1 dose, On Wed08/13/14 at 2014, Routine 2100 (Given - Provid er: Asael Witt RN) oxyCODONE-acetaminophen (PERCOCET) 5-325 mg per tablet 1 Tab (COMPLETED) 1 Tablet, Oral, ONE TIME ONLY, 1 dose, On Wed08/13/14 at 2014, Routine 2056 (Given - Provid er: Asael Witt RN) potassium chloride (K-DUR) SR tablet 40 mEq (COMPLETED) 40 mEq, Oral, ONE TIME ONLY, 1 dose, On Wed08/13/14 at 2014, Routine 2056 (Given - Provid er: Asael Witt RN) sodium chloride 0.9% bolus solution 1,000 mL (COMPLETED) 1,000 mL, IV, ONE TIME ONLY, 1 dose, On Wed08/13/14 at 2014, at 2,000 mL/hr, Administer over 30 Minutes, Routine 2058 (New Bag - Prov ider: Asael Witt RN)2128 (Stopped - Provider: Sachi London RN) documented in this encounter
--- OUTSIDE RECORDS SUMMARY | 2024-11-23 10:13 | XMS_ITS | Encounter Summary ---
Author Organization [employer] Address [address] [place] [address] Care Team Providers Care Swimming Pool Cleaner Name Role Phone Lacey Perdue MD Unavailable [phone] Patient, None Per Primary Care Provider Unavaila ble Reason for Visit * Reason Onset Date Comments overdue labs 03/29/2023 Encounter Details Date Type Department Care Team (Late st Contact Info) Description 03/29/[address] [facility] - General Surgery [address] [place] [address] [address] [place] [address] Diedra Mota, RN [address] [place] [address] [address] [place] [address] overdue labs Social History Tobacco [...] Author No 10/25/2017 2:00 PM Deonna Padilla, CORPORATE TRAVEL EXPERT * Do you have serious difficulty walking or climbing stairs? (5 years old or older) Answer Date of Assessment Author No 10/25/2017 2:00 PM Deonna Padilla S, CORPORATE TRAVEL EXPERT * Do you have difficulty dressing or bathing? (5 years old or older) Answer Date of Assessment Author No 10/25/2017 2:00 PM Deonna Padilla, CORPORATE TRAVEL EXPERT * Because of a physical, mental, or emotional condition, do you have difficulty doing errands alone such as visiting a doctor's office or shopping? (15 years old or older) Answer Date of Assessment Author No 10/25/2017 2:00 PM Deonna Padilla, CORPORATE TRAVEL EXPERT documented as of this encounter Mental Status * Because of a physical, mental, or emotional condition, do you have serious difficulty concentrating, remembering, or making decisions? (5 years old or older) Answer Entry Date Author No 10/25/2017 2:00 PM Deonna Padilla, CORPORATE TRAVEL EXPERT documented in this encounter Miscellaneous Notes * [...] documented as of this encounter Care Teams Swimming Pool Cleaner Relationship Specialty Start Date End Date Patient, None Per PCP - General 03/04/23 Lacey Perdue MD [address] [address] Referring Physician Infectious Diseases 06/28/18 documented as of this encounter
--- OUTSIDE RECORDS SUMMARY | 2024-11-23 10:13 | XMS_ITS | Encounter Summary ---
Author Organization [employer] Address [address] [place] [address] Care Team Providers Care Bicycle Technician Name Role Phone Lacey Perdue MD Unavailable [phone] Jose Manuel Villegas MD Primary Care Provider [...] of Assessment Author No 10/25/2017 2:00 PM RADIOLOGICAL METALLURGIST Galvan, Am y S, MAIL HANDLER EQUIPMENT OPERATOR * Do you have serious difficulty walking or climbing stairs? (5 years old or older) Answer Date of Assessment Author No 10/25/2017 2:00 PM JOHN Galvan Am y S, MAIL HANDLER EQUIPMENT OPERATOR * Do you have difficulty dressing or bathing? (5 years old or older) Answer Date of Assessment Author No 10/25/2017 2:00 PM RADIOLOGICAL METALLURGIST Deonna Galvan y S, MAIL HANDLER EQUIPMENT OPERATOR * Because of a physical, mental, or emotional condition, do you have difficulty doing errands alone such as visiting a doctor's office or shopping? (15 years old or older) Answer Date of Assessment Author No 10/25/2017 2:00 PM RADIOLOGICAL METALLURGIST Deonna Galvan y S, MAIL HANDLER EQUIPMENT OPERATOR documented as of this encounter Mental Status * Because of a physical, mental, or emotional condition, do you have serious difficulty concentrating, remembering, or making decisions? (5 years old or older) Answer Entry Date Author No 10/25/2017 2:00 PM JOHN Galvan Am y S, MAIL HANDLER EQUIPMENT OPERATOR documented in this encounter Plan of [...] documented as of this encounter Care Teams Bicycle Technician Relationship Specialty Start Date End Date Jose Manuel Villegas MD [address] [place] [address] PCP - General Grinder Outside Diameter 05/12/22 11/25/22 Lacey Perdue MD [address] [phone] Referring Physician Infectious Diseases 06/28/18 documented as of this encounter
--- OUTSIDE RECORDS SUMMARY | 2024-11-23 10:13 | XMS_ITS | Encounter Summary ---
Author Organization [employer] Address [address] [place] [address] Care Team Providers Care Circular Sawyer Stone Name Role Phone Lacey Perdue MD Unavailable [phone] Patient, None Per Primary Care Provider Unavaila ble Reason for Referral * Diagnostic Radiology (Routine) - Closed Specialty Diagnoses / Procedures Referred By Contac t Referred To Contact Radiology Diagnoses RUQ abdominal pain Procedures US Abdomen Complete Yessenia Loyd MD [address] [place] [address] [place] [address] Phone: tel: fax: Referral ID Status Reason Start Date Expiration Date Visits Re quested Visits Authorized [id number] Closed 03/04/2023 09/04/2024 1 1 Reason for Visit * Reason Comments Initial Consult Right sided pain; we nt to the ER yesterday for abdominal pain. Encounter Details Date Type Department Care Team (Latest Contact Info) Description 03/04/2023 2:00 PM CDT Initial consult [facility] General Surgery [address] [place] [address] 20[address] [place] [address] Yessenia Loyd MD [address] [place] [address] 20[address] [place] [address] RUQ abdominal pain (Primary Dx) [...] Author No 10/25/2017 2:00 PM Deonna Padilla, FUSE CUTTER * Are you blind or do you have serious difficulty seeing, even when wearing glasses? Answer Date of Assessment Author No 10/25/2017 2:00 PM Deonna Padilla, FUSE CUTTER * Do you have serious difficulty walking or climbing stairs? (5 years old or older) Answer Date of Assessment Author No 10/25/2017 2:00 PM Deonna Padilla, FUSE CUTTER * Do you have difficulty dressing or bathing? (5 years old or older) Answer Date of Assessment Author No 10/25/2017 2:00 PM Deonna Padilla, FUSE CUTTER * Because of a physical, mental, or emotional condition, do you have difficulty doing errands alone such as visiting a doctor's office or shopping? (15 years old or older) Answer Date of Assessment Author No 10/25/2017 2:00 PM Deonna Padilla, FUSE CUTTER documented as of this encounter Mental Status * Because of a physical, mental, or emotional condition, do you have serious difficulty concentrating, remembering, or making decisions? (5 years old or older) Answer Entry Date Author No 10/25/2017 2:00 PM ELEMENTARY SCHOOL MUSIC TEACHER Deonna Galvan, GEORGE documented in this encounter [...] ??? Ketones, UA 08/10/2022 NEG ??? Specific [place], UA 08/10/2022 1.020 ??? Blood, UA 08/10/2022 [...] Malik M.D. Narrative 03/22/2023 7:57 AM CDT [address] [place] [address] DIAGNOSTIC IMAGING Name: KIZZY EDILBERTOEd DELONG ??Ordering Phys: YESSENIA LOYD Date of : 1955 ?Gender: M ??Accession Number: [id number] EXAM DESCRIPTION: US ABDOMEN COMPLETE REASON FOR [...] Procedure Note Kerwin Malik MD - 03/22/[address] [place] [address] DIAGNOSTIC IMAGING Name: EDILBERTO HAWLEY Ordering Phys: YESSENIA LOYD Date of : 1955 Gender: M Accession Number: [id number] EXAM DESCRIPTION: US ABDOMEN COMPLETE REASON FOR [...] by Kerwin Malik M.D. Yessenia Loyd MD [facility] US ORDERABLES Final Result documented in this [...] documented as of this encounter Care Teams Circular Sawyer Stone Relationship Specialty Start Date End Date Patient, None Per PCP - General 03/04/23 Lacey Perdue MD [address] [address] Referring Physician Infectious Diseases 06/28/18 documented as of this encounter
--- OUTSIDE RECORDS SUMMARY | 2024-11-23 10:13 | XMS_ITS | Encounter Summary ---
Author Organization [employer] Address [address] [place] [address] Care Team Providers Care Bisque Finisher Name Role Phone Lacey Perdue MD Unavailable [phone] Patient, None Per Primary Care Provider Unavaila ble Reason for Visit * Reason Onset Date Comments Results 03/22/2023 US Encounter Details Date Type Department Care Team (Late st Contact Info) Description 03/22/2023 Telephone [facility] Surgery [address] [place] [address] [address] [place] [address] Deidra Mota, RN [address] [place] [address] [address] [place] [address] Results (US ) Social History [...] No 10/25/2017 2:00 PM Deonna Padilla S, EXPERIMENTAL TECHNICIAN * Do you have serious difficulty walking or climbing stairs? (5 years old or older) Answer Date of Assessment Author No 10/25/2017 2:00 PM Deonna Padilla S, EXPERIMENTAL TECHNICIAN * Do you have difficulty dressing or bathing? (5 years old or older) Answer Date of Assessment Author No 10/25/2017 2:00 PM Deonna Padilla S, EXPERIMENTAL TECHNICIAN * Because of a physical, mental, or emotional condition, do you have difficulty doing errands alone such as visiting a doctor's office or shopping? (15 years old or older) Answer Date of Assessment Author No 10/25/2017 2:00 PM Deonna Padilla, EXPERIMENTAL TECHNICIAN documented as of this encounter Mental Status * Because of a physical, mental, or emotional condition, do you have serious difficulty concentrating, remembering, or making decisions? (5 years old or older) Answer Entry Date Author No 10/25/2017 2:00 PM Deonna Padilla, EXPERIMENTAL TECHNICIAN documented in this encounter Miscellaneous Notes [...] documented as of this encounter Care Teams Bisque Finisher Relationship Specialty Start Date End Date Patient, None Per PCP - General 03/04/23 Lacey Perdue MD [address] [address] Referring Physician Infectious Diseases 06/28/18 documented as of this encounter
--- OUTSIDE RECORDS SUMMARY | 2024-11-23 10:13 | XMS_ITS | Encounter Summary ---
Author Organization [employer] Address [address] [place] [address] Care Team Providers Care Policy Specialist Name Role Phone Lacey Perdue MD Unavailable Jose Manuel Villegas MD Primary Care Provider Reason for Visit * Reason Comments Hand Pain Encounter Details Date Type Department Care Team ([facility] st Contact Info) Description 08/05/2022 10:35 AM CDT Clinical Support [facility] [address] [place] [phone] Marylou Tripp MD [address] [place] [address] Carmen Marte, RTR [address] [place] [address] Right hand pain; Right wrist [...] 2:00 PM JOHN Galvan Am y S, WATER MECHANIC * Are you blind or do you have serious difficulty seeing, even when wearing glasses? Answer Date of Assessment Author No 10/25/2017 2:00 PM INCINERATOR PLANT SUPERVISOR Deonna Galvan y S, WATER MECHANIC * Do you have serious difficulty walking or climbing stairs? (5 years old or older) Answer Date of Assessment Author No 10/25/2017 2:00 PM INCINERATOR PLANT SUPERVISOR Deonna Galvan y S, WATER MECHANIC * Do you have difficulty dressing or bathing? (5 years old or older) Answer Date of Assessment Author No 10/25/2017 2:00 PM INCINERATOR PLANT SUPERVISOR Deonna Galvan y S, WATER MECHANIC * Because of a physical, mental, or emotional condition, do you have difficulty doing errands alone such as visiting a doctor's office or shopping? (15 years old or older) Answer Date of Assessment Author No 10/25/2017 2:00 PM JOHN Galvan Am y S, WATER MECHANIC documented as of this encounter Mental Status * Because of a physical, mental, or emotional condition, do you have serious difficulty concentrating, remembering, or making decisions? (5 years old or older) Answer Entry Date Author No 10/25/2017 2:00 PM JOHN Galvan Am y S, WATER MECHANIC documented in this encounter Plan of [...] AM CDT Narrative 08/05/2022 11:54 AM CDT [address] ??[address] DIAGNOSTIC IMAGING Name: EDILBERTO DURAND ??Ordering Phys: MARYLOU TRIPP Date of : 1955 ?Gender: M ??Accession Number: [id number] EXAM DESCRIPTION: XR WRIST MIN 3 VIEWS [...] Procedure Note Kerwin Malik MD - 08/05/[address] [address] DIAGNOSTIC IMAGING Name: EDILBERTO DURAND Ordering Phys: MARYLOU TRIPP Date of : 1955 Gender: M Accession Number: [id number] EXAM DESCRIPTION: XR WRIST MIN 3 VIEWS [...] AM CDT Narrative 08/06/2022 1:41 PM CDT [address] ??[address] DIAGNOSTIC IMAGING Name: KIZZY EDILBERTO DELONG ??Ordering Phys: MARYLOU TRIPP Date of : 1955 ?Gender: M ??Accession Number: [id number] EXAM DESCRIPTION: XR HAND MIN 3 VIEWS [id number] RT RT REASON FOR STUDY: Age: 66 [...] Procedure Note Kerwin Malik MD - 08/06/[address] [address] DIAGNOSTIC IMAGING Name: EDILBERTO DURAND Ordering Phys: MARYLOU TRIPP Date of : 1955 Gender: M Accession Number: [id number] EXAM DESCRIPTION: XR HAND MIN 3 VIEWS [id number] RT RT REASON FOR STUDY: Age: 66 [...] documented as of this encounter Care Teams Policy Specialist Relationship Specialty Start Date End Date Jose Manuel Villegas MD [facility] [place] [address] PCP - General Supervisor Pipe Finishing 05/12/22 11/25/22 Lacey Perdue MD [address] [address] Referring Physician Infectious Diseases 06/28/18 documented as of this encounter
--- OUTSIDE RECORDS SUMMARY | 2024-11-23 10:13 | XMS_ITS | Encounter Summary ---
Author Organization [employer] Address [address] [place] [address] Care Team Providers Care Pulley Man Name Role Phone Lacey Perdue MD Unavailable [phone] Jose Manuel Villegas MD Primary Care Provider [phone] Reason for Visit * Reason Onset Date Comments Appointment 08/14/2022 Encounter Details Date Type Department Care Team (Late st Contact Info) Description 08/14/2022 Telephone [facility] Family Practice [address] [place] [address] Penny Carey, RN [address] [place] [address] Appointment Social History Tobacco Use [...] of Assessment Author No 10/25/2017 2:00 PM ESCAPE WHEEL TOOTH CUTTER Glavan, Am y S, GIFT MANAGER * Are you blind or do you have serious difficulty seeing, even when wearing glasses? Answer Date of Assessment Author No 10/25/2017 2:00 PM ESCAPE WHEEL TOOTH CUTTER Galvan, Am y S, GIFT MANAGER * Do you have serious difficulty walking or climbing stairs? (5 years old or older) Answer Date of Assessment Author No 10/25/2017 2:00 PM ESCAPE WHEEL TOOTH CUTTER Galvan, Am y S, GIFT MANAGER * Do you have difficulty dressing or bathing? (5 years old or older) Answer Date of Assessment Author No 10/25/2017 2:00 PM ESCAPE WHEEL TOOTH CUTTER Galvan, Am y S, GIFT MANAGER * Because of a physical, mental, or emotional condition, do you have difficulty doing errands alone such as visiting a doctor's office or shopping? (15 years old or older) Answer Date of Assessment Author No 10/25/2017 2:00 PM ESCAPE WHEEL TOOTH CUTTER Galvan, Am y S, GIFT MANAGER documented as of this encounter Mental Status * Because of a physical, mental, or emotional condition, do you have serious difficulty concentrating, remembering, or making decisions? (5 years old or older) Answer Entry Date Author No 10/25/2017 2:00 PM JOHN Galvan, Am y S, GIFT MANAGER documented in this encounter Miscellaneous Notes [...] documented as of this encounter Care Teams Pulley Man Relationship Specialty Start Date End Date Jose Manuel Villegas MD [address] [place] [address] PCP - General Rustic Fence Builder 05/12/22 11/25/22 Lacey Perdue MD [address] [phone] Referring Physician Infectious Diseases 06/28/18 documented as of this encounter
--- OUTSIDE RECORDS SUMMARY | 2024-11-23 10:13 | XMS_ITS | Encounter Summary ---
Author Organization [employer] Address [address] [place] [address] Care Team Providers Care Interior Design Coordinator Name Role Phone Lacey Perdue MD Unavailable Jose Manuel Villegas MD Primary Care Provider Reason for Visit * Reason Comments Follow-up 3m Encounter Details Date Type Department Care Team ([facility] st Contact Info) Description 09/17/2022 9:00 AM CDT Office Visit [facility] Practice [address] [place] [address] Jose Manuel Villegas MD [address] [place] [address] Chronic neck pain (Primary Dx); Healthcare [...] Villegas MD - 09/17/2022 9:00 AM CDT [facility] Department of Family Medicine [address] [place] [address] Date: 09/17/2022 Name: Edilberto Hawley : 1955 [...] AM This document was dictated using Dragon; batter out variances may occur * Penny Carey RN - 09/17/2022 9:00 AM CDT [facility] Department of Family Practice [address] [place] [address] Visit Date: 09/17/2022 MEDICARE ANNUAL WELLNESS VISIT This visit must occur >1 year after patient's Initial Medicare Annual Wellness Visit. This visit may only occur if not done elsewhere. Subjective: Edilberto Hawley is a 66 y.o. male who presents to [facility] for his Medicare Wellness Visit. Patient Care Team: Jose Manuel Villegas MD as PCP - General (Dirt Contractor) Lacey Perdue MD as Referring Physician (Infectious [...] of left rotator cuff ??? Hyperlipidemia ??? FPC current use of opiate analgesic ??? Osteoarthritis [...] documented as of this encounter Care Teams Interior Design Coordinator Relationship Specialty Start Date End Date Jose Manuel Villegas MD [address] [place] [address] PCP - General Dirt Contractor 05/12/22 11/25/22 Lcaey Perdue MD [address] [phone] Referring Physician Infectious Diseases 06/28/18 documented as of this encounter
--- OUTSIDE RECORDS SUMMARY | 2024-11-23 10:13 | XMS_ITS | Encounter Summary ---
Author Organization [employer] Address [address] [place] [address] Care Team Providers Care Client Support Associate Name Role Phone Lacey Perdue MD Unavailable [phone] Patient, None Per Primary Care Provider Unavaila ble Reason for Referral * Diagnostic Radiology (Routine) - Closed Specialty Diagnoses / Procedures Referred By Vickiac tripp Referred To Contact Radiology Diagnoses RUQ abdominal pain Procedures US Abdomen Complete Yessenia Loyd MD [address] [place] [address] [place] [address] Phone: tel: fax: Referral ID Status Reason Start Date Expiration Date Visits Re quested Visits Authorized [id number] Closed 03/04/2023 09/04/2024 1 1 Reason for Visit * Diagnostic Radiology (Routine) - Closed Specialty Diagnoses / Procedures Referred By Celine almaguer Referred To Contact Radiology Diagnoses RUQ abdominal pain Procedures US Abdomen Complete Yessenia Loyd MD [address] [place] [address] [place] [address] Phone: tel: fax: Referral ID Status Reason Start Date Expiration Date Visits Re quested Visits Authorized [id number] Closed 03/04/2023 09/04/2024 1 1 Encounter Details Date Type Department Care Team (Latest Contact Info) Description 03/22/2023 7:13 AM CDT - 03/22/2023 11:59 PM CDT Hospital Encounter [facility] [address] [place] [address] Yessenia Loyd MD [address] [facility] [address] [place] [address] RUQ abdominal pain Discharge Disposition: Home - [...] Author No 10/25/2017 2:00 PM Deonna Padilla, STEAM CONDITIONER FILLING * Do you have serious difficulty walking or climbing stairs? (5 years old or older) Answer Date of Assessment Author No 10/25/2017 2:00 PM Deonna Padilla, STEAM CONDITIONER FILLING * Do you have difficulty dressing or bathing? (5 years old or older) Answer Date of Assessment Author No 10/25/2017 2:00 PM Deonna Padilla, STEAM CONDITIONER FILLING * Because of a physical, mental, or [...] Malik M.D. Narrative 03/22/2023 7:57 AM CDT [address] [place] [address] DIAGNOSTIC IMAGING Name: EDILBERTO DURAND ??Ordering Phys: YESSENIA LOYD Date of : 1955 ?Gender: M ??Accession Number: [id number] EXAM DESCRIPTION: US ABDOMEN COMPLETE REASON FOR [...] Procedure Note Kerwin Malik MD - 03/22/[address] [place] [address] DIAGNOSTIC IMAGING Name: EDILBERTO DURAND Ordering Phys: YESSENIA LOYD Date of : 1955 Gender: M Accession Number: [id number] EXAM DESCRIPTION: US ABDOMEN COMPLETE REASON FOR [...] by Kerwin Malik M.D. Yessenia Loyd MD [facility] US ORDERABLES Final Result documented in this [...] documented as of this encounter Care Teams Client Support Associate Relationship Specialty Start Date End Date Patient, None Per PCP - General 03/04/23 Lacey Perdue MD [address] [phone] Referring Physician Infectious Diseases 06/28/18 documented as of this encounter
--- OUTSIDE RECORDS SUMMARY | 2024-11-23 10:13 | XMS_ITS | Encounter Summary ---
Author Organization [employer] Address [address] [place] [address] Care Team Providers Care General Accounting Clerk Name Role Phone Lacey Perdue MD Unavailable Jose Manuel Villegas MD Primary Care Provider Reason for Visit * Reason Comments Follow-up R hand pain, TF inje ction 08/05/2022 Encounter Details Date Type Department Care Team (Late st Contact Info) Description 09/17/2022 8:45 AM CDT Office Visit [facility] Plastic Surgery [address] [place] [phone] Estevan Tripp MD [address] [place] [address] Slac (scapholunate advanced collapse) of wrist, [...] of Assessment Author No 10/25/2017 2:00 PM ENROUTE CONTROLLER Galvan, Am y S, COORDINATE MEASURING MACHINE OPERATOR * Are you blind or do you have serious difficulty seeing, even when wearing glasses? Answer Date of Assessment Author No 10/25/2017 2:00 PM ENROUTE CONTROLLER Galvan, Am y S, COORDINATE MEASURING MACHINE OPERATOR * Do you have serious difficulty walking or climbing stairs? (5 years old or older) Answer Date of Assessment Author No 10/25/2017 2:00 PM ENROUTE CONTROLLER Galvan, Am y S, COORDINATE MEASURING MACHINE OPERATOR * Do you have difficulty dressing or bathing? (5 years old or older) Answer Date of Assessment Author No 10/25/2017 2:00 PM ENROUTE CONTROLLER Galvan, Am y S, COORDINATE MEASURING MACHINE OPERATOR * Because of a physical, mental, or emotional condition, do you have difficulty doing errands alone such as visiting a doctor's office or shopping? (15 years old or older) Answer Date of Assessment Author No 10/25/2017 2:00 PM ENROUTE CONTROLLER Galvan, Am y S, COORDINATE MEASURING MACHINE OPERATOR documented as of this encounter Mental Status * Because of a physical, mental, or emotional condition, do you have serious difficulty concentrating, remembering, or making decisions? (5 years old or older) Answer Entry Date Author No 10/25/2017 2:00 PM ENROUTE CONTROLLER Galvan, Am y S, COORDINATE MEASURING MACHINE OPERATOR documented in this encounter Progress Notes [...] documented as of this encounter Care Teams General Accounting Clerk Relationship Specialty Start Date End Date Jose Manuel Villegas MD [address] [place] [address] PCP - General College Professor 05/12/22 11/25/22 Lacey Perdue MD [address] [phone] Referring Physician Infectious Diseases 06/28/18 documented as of this encounter
--- OUTSIDE RECORDS SUMMARY | 2024-11-23 10:13 | XMS_ITS | Encounter Summary ---
Author Organization [employer] Address [address] [place] [address] Care Team Providers Care Gas Systems Worker Name Role Phone Lacey Perdue MD Unavailable Jose Manuel Villegas MD Primary Care Provider [phone] Reason for Visit * Reason Comments Flank Pain Encounter Details Date Type Department Care Team (Late st Contact Info) Description 08/10/2022 6:11 PM CDT - 08/10/2022 9:11 PM CDT Emergency [facility] [address] [place] [address] Michael Cain MD Chronic right-sided low back [...] Author No 10/25/2017 2:00 PM Deonna Padilla, PAINT ROLLER COVER MACHINE SETTER * Do you have serious difficulty walking or climbing stairs? (5 years old or older) Answer Date of Assessment Author No 10/25/2017 2:00 PM Deonna Padilla, PAINT ROLLER COVER MACHINE SETTER * Do you have difficulty dressing or bathing? (5 years old or older) Answer Date of Assessment Author No 10/25/2017 2:00 PM Deonna Padilla, PAINT ROLLER COVER MACHINE SETTER * Because of a physical, [...] sent through Care Everywhere. * Back Pain (Namibian) * Back Care Basics: General Info (Namibian) documented in this encounter Medications at Time [...] Follow-Up Providers Jose Manuel Villegas MD Specialty: Cashier Self Service Gasoline, Family Medicine Relationship: PCP - General Next [...] later he went to his PCP in [place], and he was better. Then about 1-2 [...] UA CLN CATCH 08/10/2022 6:31 PM CDT [facility] Color, UA YELLOW 08/10/2022 6:43 PM CDT [facility] Clarity, UA CLEAR CLEAR 08/10/2022 6:43 PM CDT [facility] Glucose, UA NEG NEG mg/dL 08/10/2022 6:43 PM [facility] Bilirubin, UA NEG NEG 08/10/2022 6:43 PM [facility] Ketones, UA NEG NEG mg/dL 08/10/2022 6:43 PM [facility] Specific [place], UA 1.020 1.002 - 1.020 08/10/2022 6:43 PM [facility] Blood, UA NEG NEG 08/10/2022 6:43 PM [facility] PH, UA 7.0 5.0 - 8.0 08/10/2022 6:43 PM [facility] Protein, UA NEG NEG mg/dL 08/10/2022 6:43 PM [facility] Urobilinogen,U A 0.2 0.1 - 1.0 [Emmanuel'U ]/dL 08/10/2022 6:43 PM [facility] Nitrite, UA NEG NEG 08/10/2022 6:43 PM [facility] Leukocyte Esterase, UA NEG NEG 08/10/2022 6:43 PM [facility] Comment NONE 08/10/2022 6:43 PM [facility] Urine URINE SPECIMEN FROM URINARY BLADDER / Unknown 08/10/2022 6:31 PM T 08/10/2022 6:40 PM [facility] Michael Cain MD URINE ORDERABLES Final Result [facility] [address] [place], [place] [phone] [facility] [address] [place] [address] documented in this encounter Visit Diagnoses Diagnosis [...] documented as of this encounter Care Teams Gas Systems Worker Relationship Specialty Start Date End Date Jose Manuel Villegas MD [facility] [place] [address] PCP - General Cashier Self Service Gasoline 05/12/22 11/25/22 Lacey Perdue MD [address] [phone] Referring Physician Infectious Diseases 06/28/18 documented as of this encounter
--- OUTSIDE RECORDS SUMMARY | 2024-11-23 10:13 | XMS_ITS | Encounter Summary ---
Author Organization [employer] Address [address] [place] [address] Care Team Providers Care Robotics Engineer Name Role Phone Lacey Perdue MD Unavailable Jose Manuel Villegas MD Primary Care Provider Reason for Visit * Reason Comments Medication Refill Encounter Details Date Type Department Care Team (Late st Contact Info) Description 08/13/2022 Refill [facility] [place] [address] Jose Manuel Villegas MD [address] [place] [address] Social History Tobacco Use Types Packs/Day [...] Author No 10/25/2017 2:00 PM Deonna Padilla, READING AIDE * Are you blind or do you have serious difficulty seeing, even when wearing glasses? Answer Date of Assessment Author No 10/25/2017 2:00 PM JOHN Galvan Am y S, READING AIDE * Do you have serious difficulty walking or climbing stairs? (5 years old or older) Answer Date of Assessment Author No 10/25/2017 2:00 PM Deonna Padilla S, READING AIDE * Do you have difficulty dressing or bathing? (5 years old or older) Answer Date of Assessment Author No 10/25/2017 2:00 PM Deonna Padilla S, READING AIDE * Because of a physical, mental, or emotional condition, do you have difficulty doing errands alone such as visiting a doctor's office or shopping? (15 years old or older) Answer Date of Assessment Author No 10/25/2017 2:00 PM Deonna Padilla, READING AIDE documented as of this encounter Mental Status * Because of a physical, mental, or emotional condition, do you have serious difficulty concentrating, remembering, or making decisions? (5 years old or older) Answer Entry Date Author No 10/25/2017 2:00 PM Deonna Padilla, READING AIDE documented in this encounter Plan of Treatment [...] documented as of this encounter Care Teams Robotics Engineer Relationship Specialty Start Date End Date Jose Manuel Villegas MD [facility] [place] [address] PCP - General Information Management Specialist 05/12/22 11/25/22 Lacey Perdue MD [address] [address] Referring Physician Infectious Diseases 06/28/18 documented as of this encounter
--- OUTSIDE RECORDS SUMMARY | 2024-11-23 10:13 | XMS_ITS | Encounter Summary ---
Author Organization [employer] Address [address] [place] [address] Care Team Providers Care Deliverer Food Name Role Phone Lacey Perdue MD Unavailable Jose Manuel Villegas MD Primary Care Provider [phone] Reason for Visit * Reason Comments Medication Refill Encounter Details Date Type Department Care Team ([facility] st Contact Info) Description 10/16/2022 Refill [facility] [address] [place] [address] Yoandy Red MD [facility] [address] Social History Tobacco Use Types [...] Author No 10/25/2017 2:00 PM Deonna Padilla, CHEERLEADING COACH * Are you blind or do you have serious difficulty seeing, even when wearing glasses? Answer Date of Assessment Author No 10/25/2017 2:00 PM Deonna Padilla, CHEERLEADING COACH * Do you have serious difficulty walking or climbing stairs? (5 years old or older) Answer Date of Assessment Author No 10/25/2017 2:00 PM Deonna Padilla, CHEERLEADING COACH * Do you have difficulty dressing or bathing? (5 years old or older) Answer Date of Assessment Author No 10/25/2017 2:00 PM Deonna Padilla, CHEERLEADING COACH * Because of a physical, mental, or emotional condition, do you have difficulty doing errands alone such as visiting a doctor's office or shopping? (15 years old or older) Answer Date of Assessment Author No 10/25/2017 2:00 PM Deonna Padilla, CHEERLEADING COACH documented as of this encounter Mental Status * Because of a physical, mental, or emotional condition, do you have serious difficulty concentrating, remembering, or making decisions? (5 years old or older) Answer Entry Date Author No 10/25/2017 2:00 PM Deonna Padilla CHEERLEADING COACH documented in this encounter Plan of [...] documented as of this encounter Care Teams Deliverer Food Relationship Specialty Start Date End Date Jose Manuel Villegas MD [address] [place] [address] PCP - General Purchase Order Checker 05/12/22 11/25/22 Lacey Perdue MD [address] [phone] Referring Physician Infectious Diseases 06/28/18 documented as of this encounter
--- OUTSIDE RECORDS SUMMARY | 2024-11-23 10:13 | XMS_ITS | Encounter Summary ---
Author Organization [employer] Address [address] [place] [address] Care Team Providers Care Head Of Visual Merchandising Name Role Phone Lacey Perdue MD Unavailable [phone] Jose Manuel Villegas MD Primary Care Provider [phone] Reason for Visit * Reason Comments Medication Refill Encounter Details Date Type Department Care Team (Late st Contact Info) Description 09/10/2022 Refill [facility] [place] [address] Jose Manuel Villegas MD [address] [place] [address] Social History Tobacco Use Types Packs/Day [...] Author No 10/25/2017 2:00 PM Deonna Padilla, LONG GOODS DRIER * Do you have serious difficulty walking or climbing stairs? (5 years old or older) Answer Date of Assessment Author No 10/25/2017 2:00 PM Deonna Padilla, LONG GOODS DRIER * Do you have difficulty dressing or bathing? (5 years old or older) Answer Date of Assessment Author No 10/25/2017 2:00 PM Deonna Padilla, LONG GOODS DRIER * Because of a physical, mental, or [...] documented as of this encounter Care Teams Head Of Visual Merchandising Relationship Specialty Start Date End Date Jose Manuel Villegas MD [address] [place] [address] PCP - General Cardiac Rehabilitation Specialist 05/12/22 11/25/22 Lacey Perdue MD [address] [phone] Referring Physician Infectious Diseases 06/28/18 documented as of this encounter
--- OUTSIDE RECORDS SUMMARY | 2024-11-23 10:13 | XMS_ITS | Encounter Summary ---
Author Organization [employer] Address [address] [place] [address] Care Team Providers Care Payroll And Benefits Coordinator Name Role Phone Lacey Perdue MD Unavailable [phone] Reason for Visit * Reason Onset Date Comments other 03/01/2023 Encounter Details Date Type Department Care Team (Late st Contact Info) Description 03/01/2023 Telephone [facility] - General Surgery [address] [place] [address] [address] [place] [address] Deidra Mota, RN [address] [place] [address] [address] [place] [address] other Social History Tobacco Use [...] of Assessment Author No 10/25/2017 2:00 PM SECTION HOUSEKEEPER Galvan, Am y S, ASSISTANT ACCOUNTING MANAGER * Do you have serious difficulty walking or climbing stairs? (5 years old or older) Answer Date of Assessment Author No 10/25/2017 2:00 PM Deonna Padilla S, ASSISTANT ACCOUNTING MANAGER * Do you have difficulty dressing or bathing? (5 years old or older) Answer Date of Assessment Author No 10/25/2017 2:00 PM Deonna Padilla S, ASSISTANT ACCOUNTING MANAGER * Because of a physical, mental, or emotional condition, do you have difficulty doing errands alone such as visiting a doctor's office or shopping? (15 years old or older) Answer Date of Assessment Author No 10/25/2017 2:00 PM JOHN Galvan Am y S, ASSISTANT ACCOUNTING MANAGER documented as of this encounter Mental Status * Because of a physical, mental, or emotional condition, do you have serious difficulty concentrating, remembering, or making decisions? (5 years old or older) Answer Entry Date Author No 10/25/2017 2:00 PM Deonna Padilla, ASSISTANT ACCOUNTING MANAGER documented in this encounter Miscellaneous Notes * Telephone Encounter - Deidra Mota RN - 03/01/2023 9:19 AM CDT PC from pt stating that for a long time now he has had right sided pain. Pt states that he went to the [facility] and they did not think it [...] documented as of this encounter Care Teams Payroll And Benefits Coordinator Relationship Specialty Start Date End Date Lacey Perdue MD [address] [phone] Referring Physician Infectious Diseases 06/28/18 documented as of this encounter
--- OUTSIDE RECORDS SUMMARY | 2024-11-23 10:13 | XMS_ITS | Encounter Summary ---
Author Organization [employer] Address [address] [place] [address] Care Team Providers Care Shift Supervisor Name Role Phone Lacey Perdue MD Unavailable [phone] Patient, None Per Primary Care Provider Unavaila ble Reason for Visit * Reason Onset Date Comments overdue labs 04/22/2023 Encounter Details Date Type Department Care Team (Late st Contact Info) Description 04/22/2023 Telephone [facility] - General Surgery [address] [place] [address] [address] [place] [address] Deidra Mota, RN [address] [place] [address] [address] [place] [address] overdue labs Social History Tobacco [...] Author No 10/25/2017 2:00 PM Deonna Padilla, WATER PUMP ASSEMBLER * Do you have serious difficulty walking or climbing stairs? (5 years old or older) Answer Date of Assessment Author No 10/25/2017 2:00 PM Deonna Padilla S, WATER PUMP ASSEMBLER * Do you have difficulty dressing or bathing? (5 years old or older) Answer Date of Assessment Author No 10/25/2017 2:00 PM Deonna Padilla, WATER PUMP ASSEMBLER * Because of a physical, mental, or emotional condition, do you have difficulty doing errands alone such as visiting a doctor's office or shopping? (15 years old or older) Answer Date of Assessment Author No 10/25/2017 2:00 PM Deonna Padilla, WATER PUMP ASSEMBLER documented as of this encounter Mental Status * Because of a physical, mental, or emotional condition, do you have serious difficulty concentrating, remembering, or making decisions? (5 years old or older) Answer Entry Date Author No 10/25/2017 2:00 PM Deonna Padilla, WATER PUMP ASSEMBLER documented in this encounter Miscellaneous Notes * [...] pt not responding letter mailed, labs extended. Danfe RN * Telephone Encounter - Deidra Mota RN - 04/27/2023 8:11 AM CDT VM left for Edilberto Hawley to [facility]. Dafne RN * Telephone Encounter - Deidra [...] documented as of this encounter Care Teams Shift Supervisor Relationship Specialty Start Date End Date Patient, None Per PCP - General 03/04/23 Lacey Perdue MD [address] [phone] Referring Physician Infectious Diseases 06/28/18 documented as of this encounter
--- OUTSIDE RECORDS SUMMARY | 2024-11-23 10:13 | XMS_ITS | Encounter Summary ---
Author Organization [employer] Address [address] [place] [address] Care Team Providers Care Director Talent Name Role Phone Lacey Perdue MD Unavailable [phone] Patient, None Per Primary Care Provider Unavaila ble Encounter Details Date Type Department Care Team (Late st Contact Info) Description 09/15/2023 Orders Only [facility] Centralized Scanning Provider, Not In System [...] as of this encounter Care Teams Director Talent Relationship Specialty Start Date End Date Patient, None Per PCP - General 03/04/23 Lacey Perdue MD [address] [phone] Referring Physician Infectious Diseases 06/28/18 documented as of this encounter
--- OUTSIDE RECORDS SUMMARY | 2024-11-23 10:13 | XMS_ITS | Encounter Summary ---
Author Organization [employer] Address [address] [place] [address] Care Team Providers Care Windows Phone Developer Name Role Phone Lacey Perdue MD Unavailable [phone] Patient, None Per Primary Care Provider Unavaila ble Reason for Visit * Nuclear Medicine (Routine) - Closed Specialty Diagnoses / Procedures Referred By Contac t Referred To Contact Radiology Diagnoses RUQ abdominal pain Procedures NM Hepatobiliary System Imaging wo Drug NM Hepatobiliary System Imag w Drug Yessenia Loyd MD [facility] [address] [place] [address] Phone: tel: fax: Referral ID Status Reason Start Date Expiration Date Visits Re quested Visits Authorized [id number] Closed 03/22/2023 05/17/2023 8 8 Encounter Details Date Type Department Care Team (Latest Contact Info) Description 04/30/2023 6:38 AM CDT - 04/30/2023 11:59 PM CDT Hospital Encounter [facility] [address] [facility] [address] [place] [phone] Yessenia Loyd MD [address] [place] [address] [address] [place] [address] RUQ abdominal pain Discharge Disposition: [...] Malik M.D. Narrative 04/30/2023 12:22 PM [address]T [address] [place] [address] DIAGNOSTIC IMAGING Name: EDILBERTO DURAND ??Ordering Phys: YESSENIA LOYD Date of : 1955 ?Gender: M ??Accession Number: [id number] EXAM DESCRIPTION: NM HEPATOBILIARY SYSTEM IMAGING WO [...] Procedure Note Kerwin Malik MD - 04/30/[address] [place] [address] DIAGNOSTIC IMAGING Name: EDILBERTO DURAND Ordering Phys: YESSENIA LOYD Date of : 1955 Gender: M Accession Number: [id number] EXAM DESCRIPTION: NM HEPATOBILIARY SYSTEM IMAGING WO [...] by Kerwin Malik M.D. Yessenia Loyd MD [facility] [place] ORDERABLES Final Result documented in this [...] documented as of this encounter Care Teams Windows Phone Developer Relationship Specialty Start Date End Date Patient, None Per PCP - General 03/04/23 Lacey Perdue MD [address] [phone] Referring Physician Infectious Diseases 06/28/18 documented as of this encounter
--- OUTSIDE RECORDS SUMMARY | 2024-11-23 10:13 | XMS_ITS | Encounter Summary ---
Author Organization [employer] Address [address] [place] [address] Care Team Providers Care Assistant Pressman Name Role Phone Lacey Perdue MD Unavailable [phone] Jose Manuel Villegas MD Primary Care Provider [...] of Assessment Author No 10/25/2017 2:00 PM FOOD EDITOR Galvan, Am y S, MACHINE COIL ASSEMBLER * Do you have serious difficulty walking or climbing stairs? (5 years old or older) Answer Date of Assessment Author No 10/25/2017 2:00 PM JOHN Galvan Am y S, MACHINE COIL ASSEMBLER * Do you have difficulty dressing or bathing? (5 years old or older) Answer Date of Assessment Author No 10/25/2017 2:00 PM FOOD EDITOR Deonna Galvan y S, MACHINE COIL ASSEMBLER * Because of a physical, mental, or emotional condition, do you have difficulty doing errands alone such as visiting a doctor's office or shopping? (15 years old or older) Answer Date of Assessment Author No 10/25/2017 2:00 PM FOOD EDITOR Deonna Galvan y S, MACHINE COIL ASSEMBLER documented as of this encounter Mental Status * Because of a physical, mental, or emotional condition, do you have serious difficulty concentrating, remembering, or making decisions? (5 years old or older) Answer Entry Date Author No 10/25/2017 2:00 PM JOHN Galvan Am y S, MACHINE COIL ASSEMBLER documented in this encounter Plan of [...] as of this encounter Care Teams Assistant Pressman Relationship Specialty Start Date End Date Jose Manuel Villegas MD [address] [place] [address] PCP - General Box Fabricator 05/12/22 11/25/22 Lacey Perdue MD [address] [phone] Referring Physician Infectious Diseases 06/28/18 documented as of this encounter
--- OUTSIDE RECORDS SUMMARY | 2024-11-23 10:13 | XMS_ITS | Encounter Summary ---
Author Organization [employer] Address [address] [place] [address] Care Team Providers Care Optical Goods Drilling Machine Operator Name Role Phone Lacey Perdue MD Unavailable Jose Manuel Villegas MD Primary Care Provider Reason for Visit * Reason Onset Date Comments Not Seen by Provider 10/13/2022 Encounter Details Date Type Department Care Team (Late st Contact Info) Description 10/13/2022 1:45 PM DITCH CLEANER Telemedicine [facility] [address] [place] [phone] Emmanuel Jefferson, NOTE KEEPER [address] [place] [address] Not Seen by Provider (Primary Dx) [...] of Assessment Author No 10/25/2017 2:00 PM DITCH CLEANER Deonna Galvan y S, SCRAP IRON CUTTER * Are you blind or do you have serious difficulty seeing, even when wearing glasses? Answer Date of Assessment Author No 10/25/2017 2:00 PM DITCH CLEANER Cole Am y S, SCRAP IRON CUTTER * Do you have serious difficulty walking or climbing stairs? (5 years old or older) Answer Date of Assessment Author No 10/25/2017 2:00 PM DITCH CLEANER Cole Am y S, SCRAP IRON CUTTER * Do you have difficulty dressing or bathing? (5 years old or older) Answer Date of Assessment Author No 10/25/2017 2:00 PM DITCH CLEANER Cole Am y S, SCRAP IRON CUTTER * Because of a physical, mental, or emotional condition, do you have difficulty doing errands alone such as visiting a doctor's office or shopping? (15 years old or older) Answer Date of Assessment Author No 10/25/2017 2:00 PM DITCH CLEANER Cole Am y S, SCRAP IRON CUTTER documented as of this encounter Mental Status * Because of a physical, mental, or emotional condition, do you have serious difficulty concentrating, remembering, or making decisions? (5 years old or older) Answer Entry Date Author No 10/25/2017 2:00 PM DITCH CLEANER Cole Am y S, SCRAP IRON CUTTER documented in this encounter Progress Notes * Emmanuel Jefferson NP - 10/13/2022 1:45 PM CST Patient was not seen by provider because the patient was unavailable to be seen. H CLEANER documented in this encounter Plan of Treatment [...] documented as of this encounter Care Teams Optical Goods Drilling Machine Operator Relationship Specialty Start Date End Date Jose Manuel Villegas MD [address] [place] [address] PCP - General Tenter 05/12/22 11/25/22 Lacey Perdue MD [address] [phone] Referring Physician Infectious Diseases 06/28/18 documented as of this encounter
--- OUTSIDE RECORDS SUMMARY | 2024-11-23 10:13 | XMS_ITS | Encounter Summary ---
Author Organization [employer] Address [address] [place] [address] Care Team Providers Care Neonatal Pediatric Nurse Name Role Phone Lacey Perdue MD Unavailable [phone] Patient, None Per Primary Care Provider Unavaila ble Reason for Visit * Reason Comments Follow-up Continuing issues wi th left wrist, schedule surgery? Encounter Details Date Type Department Care Team (Late st Contact Info) Description 04/14/2023 2:45 PM CDT Office Visit [facility] Plastic Surgery [address] [place] [phone] Estevan Tripp MD [address] [place] [address] Slac (scapholunate advanced collapse) of wrist, [...] No 10/25/2017 2:00 PM Deonna Padilla S, LIQUOR CLERK * Are you blind or do you have serious difficulty seeing, even when wearing glasses? Answer Date of Assessment Author No 10/25/2017 2:00 PM Deonna Padilla S, LIQUOR CLERK * Do you have serious difficulty walking or climbing stairs? (5 years old or older) Answer Date of Assessment Author No 10/25/2017 2:00 PM Deonna Padilla S, LIQUOR CLERK * Do you have difficulty dressing or bathing? (5 years old or older) Answer Date of Assessment Author No 10/25/2017 2:00 PM FINE WIRE DRAWER Deonna Galvan S, LIQUOR CLERK * Because of a physical, mental, or emotional condition, do you have difficulty doing errands alone such as visiting a doctor's office or shopping? (15 years old or older) Answer Date of Assessment Author No 10/25/2017 2:00 PM Deonna Padilla S, LIQUOR CLERK documented as of this encounter Mental Status * Because of a physical, mental, or emotional condition, do you have serious difficulty concentrating, remembering, or making decisions? (5 years old or older) Answer Entry Date Author No 10/25/2017 2:00 PM Deonna Padilla S, LIQUOR CLERK documented in this encounter Progress Notes [...] documented as of this encounter Care Teams Neonatal Pediatric Nurse Relationship Specialty Start Date End Date Patient, None Per PCP - General 03/04/23 Lacey Perdue MD [address] [phone] Referring Physician Infectious Diseases 06/28/18 documented as of this encounter
--- OUTSIDE RECORDS SUMMARY | 2024-11-23 10:13 | XMS_ITS | Clinical Summary ---
Author Organization [facility] Address [address] [place] [address] Care Team Providers Care Supervisor Yard Name Role Phone Lacey Perdue MD Unavailable [phone] Patient, None Per Primary Care Provider Unavaila ble Source Comments This disclosure is being made pursuant to the [facility] program and maynot contain all information available regarding this patient.[facility] Allergies No known active allergies Medications Probiotic [...] of lumbar vertebra with routine healing 05/19/2017 detention current use of opiate analgesic 2016 Spinal [...] WITH D/L, URINE Routine 12/23/2021 1:07 PM INSTRUMENT SHOP SUPERVISOR Encounter for long-term current use of medication HEPATITIS C ANTIBODY Routine 07/28/2021 9:51 AM CDT Need for hepatitis C screening test COLONOSCOPY Routine 12/07/2018 from Last 3 Months or Most Recently Relevant to Health Maintenance Results * (ABNORMAL) Lipid panel (05/12/2022 11:22 AM CDT) Cholesterol 143 0 - 200 mg/dL [facility] Comment:Cholesterol preferre d <200 mg/dL. Clinical correlation is essential. Triglycerides 88 0 - 200 mg/dL [facility] HDL Cholesterol 43(L) >60 mg/dL [facility] LDL, Calculated 82.4 mg/dL [facility] Comment: <100 ?Optimal 100-129 ? Near Optimal/Above Optimal 130-159 ? Borderline High 160-189 ? High >or =190 ?Very High Cholesterol/HDL Ratio 3.3 [facility] Comment:HDL:Chol ratio Low R isk 1:3.3-1:4.3, Clinical Correlation essential. Blood 05/12/2022 11:2 2 AM CDT 05/12/2022 11:23 AM CDT Comment:- Narrative [facility] - 05/12/2022 11:45 AM CDT Testing performed at [facility], [address] [place] [address]. CLIA [id number] Phone [phone] Ext [phone] ??Fire Extinguisher Repairer Inspector Shant Rivas MD Jose Manuel Villegas MD LAB BLOOD ORDERABLES Final Result [facility] [address] [place] [address] [phone] * Controlled Substance Agreement (05/12/2022) Jose Manuel Villegas MD SUBSTANCE ABUSE ORDERABLES Final Result * (ABNORMAL) Pain Management Profile 1 With Confirm, With D/L, Urine (12/23/2021 1:07 PM INSTRUMENT SHOP SUPERVISOR) medMATCH Summary SEE NOTE [facility] Comment: ?Prescribed ?Prescribed ?Not Prescribed ?Consistent ?Inconsistent ?Inconsistent ?Oxycodone ? [KS] Prescribed Drug 1 Oxycodone QU [facility] Comment: [KS] Testing performed at: [facility] [employer], [address] [place], [address], Fire Extinguisher Repairer Inspector: Osvaldo Rios D.O., MPH Amphetamines NEGATIVE <500 ng/mL [facility] Comment:[CB] Barbiturates NEGATIVE <300 ng/mL [facility] Comment:[CB] Benzodiazepines NEGATIVE <100 ng/mL [facility] Comment:[CB] Cocaine Metabolite NEGATIVE <150 ng/mL [facility] Comment:[CB] Marijuana Metabolite NEGATIVE <20 ng/mL [facility] Comment:[CB] Methadone NEGATIVE <100 ng/mL [facility] Comment:[CB] Opiates NEGATIVE CONFIRMED <100 ng/mL [facility] Comment:[CB] Codeine NEGATIVE <50 ng/mL [facility] Comment:[CB] Hydrocodone NEGATIVE <50 ng/mL [facility] Comment:[CB] Hydromorphone NEGATIVE <50 ng/mL [facility] Comment:[CB] Morphine UR NEGATIVE <50 ng/mL [facility] Comment:[CB] Norhydrocodone NEGATIVE <50 ng/mL [facility] Comment:[CB] Opiates Comments SEE NOTE [facility] Comment: See LDT Notes [CB] Oxycodone POSITIVE(A) <100 ng/mL [facility] Comment:[CB] Noroxycodone, UR >[address](H) <50 ng/mL [facility] Comment:[CB] MEDMATCH NOROXYCODONE CONSISTENT [facility] Comment:[CB] Oxycodone >09351(H) <50 ng/mL [facility] Comment:[CB] medMATCH Oxycodone CONSISTENT [facility] Comment:[CB] Oxymorphone >08516(H) <50 ng/mL [facility] Comment:[CB] medMATCH Oxymorphone CONSISTENT [facility] Comment:[CB] Oxycodone Comments SEE NOTE Q [facility] Comment: See Oxycodone Notes, LDT Notes [CB] Phencyclidine NEGATIVE <25 ng/mL [facility] Comment:[CB] Creatinine Urine >300.0 > or = 20.0 mg/dL [facility] Comment:[CB] pH 5.9 4.5 - 9.0 [facility] Comment:[CB] Oxidant NEGATIVE <200 mcg/mL [facility] Comment:[CB] Comments: SEE NOTE [facility] Comment: This drug testing is [...] analytical performance characteristics have been determined by [employer]. It has not been cleared or approved by the FDA. This assay has been validated pursuant to the CLIA regulations and is used for clinical purposes. medMATCH(R) enables providers to identify if drug use is consistent or inconsistent with a corresponding prescribed medication(s) list. Healthcare Providers needing Interpretation assistance, please contact us at [phone] ( ) M-F, 8am to 10pm EST [KS] Urine 12/23/2021 1:07 PM INSTRUMENT SHOP SUPERVISOR 12/24/2021 3:36 AM INSTRUMENT SHOP SUPERVISOR Narrative [facility] - 12/28/2021 2:40 PM INSTRUMENT SHOP SUPERVISOR Testing performed at: [place], [address] [facility], [place], [address], Fire Extinguisher Repairer Inspector: Osvaldo Rios D.O., MPH us Michell Trevizo MD URINE ORDERABLES Final Result Performing Organization Address [facility] Co de Phone Number [facility] [address] [place] [address] [phone] * Hepatitis C antibody (07/28/2021 9:51 AM CDT) Hep C Ab Nonreactive Nonreactive [facility] Blood 07/28/2021 9:51 AM CDT 07/28/2021 10:33 AM CDT Comment:- Narrative [facility] - 07/30/2021 11:11 AM CDT Testing performed at [facility], [address] [place] [address]. CLIA [id number] Phone [phone] Ext [phone] ??Fire Extinguisher Repairer Inspector Shant Rivas MD us Michell Trevizo MD LAB BLOOD ORDERABLES Final Res ult Performing Organization Address [facility] Co de Phone Number [facility] [address] [place] [address] [phone] * HM Colonoscopy (12/07/2018) us Not In System Provider HEALTH MAINTENANCE Final Result from Last 3 Months or Most Recently Relevant to Health Maintenance Insurance WORKERS COMPENSATION Advance Directives * Full Code (Latest Code Status on File) Date Activated Date Inactivated Comments 10/25/2017 1:39 PM 10/29/2017 3:17 PM Care Teams Supervisor Yard Relationship Specialty Start Date End Date Patient, None Per PCP - General 03/04/23 Lacey Perdue MD [address] [phone] Referring Physician Infectious Diseases 06/28/18
--- OUTSIDE RECORDS SUMMARY | 2024-11-23 10:13 | XMS_ITS | Encounter Summary ---
Author Organization [employer] Address [address] [place] [address] Care Team Providers Care Criminal Judge Name Role Phone Lacey Perdue MD Unavailable Jose Manuel Villegas MD Primary Care Provider Reason for Referral * Referral (Routine) - Closed Specialty Diagnoses / Procedures Referred By Contac t Referred To Contact Rheumatology Diagnoses Arthritis Jose Manuel Villegas MD [address] [place] [address] Phone: tel: fax: [facility] [address] [place] [address] Phone: tel: fax: Referral ID Status Reason Start Date Expiration Date V isits Requested Visits Authorized [id number] Closed Specialty Services Required 09/02/2022 03/05/2024 1 1 Encounter Details Date Type Department Care Team (Late st Contact Info) Description 09/02/2022 Orders Only [facility] [address] [place] [phone] Penny Carey, RN [address] [place] [address] Arthritis (Primary Dx) Social History [...] documented as of this encounter Care Teams Criminal Judge Relationship Specialty Start Date End Date Jose Manuel Villegas MD [facility] [place] [address] PCP - General Tape Cutting Machine Operator 05/12/22 11/25/22 Lacey Perdue MD [address] [phone] Referring Physician Infectious Diseases 06/28/18 documented as of this encounter
--- OUTSIDE RECORDS SUMMARY | 2024-11-23 10:13 | XMS_ITS | Encounter Summary ---
Author Organization [employer] Address [address] [place] [address] Care Team Providers Care Railway Yard Assistant Name Role Phone Lacey Perdue MD Unavailable [phone] Jose Manuel Villegas MD Primary Care Provider Reason for Visit * Reason Comments Initial Consult Left wrist pain * Referral (Routine) - Closed Specialty Diagnoses / Procedures Referred By Contac t Referred To Contact Plastic Surgery Diagnoses Left wrist pain Osteoarthritis of left wrist, unspecified osteoarthritis type Dorita Dumont PA-C [address] [place] [address] Phone: tel: fax: Marylou Tripp MD [address] [place] [address] Phone: tel: fax: Referral ID Status Reason Start Date Expiration Date V isits Requested Visits Authorized [id number] Closed Specialty Services Required 06/09/2022 12/11/2023 1 1 Encounter Details Date Type Department Care Team (Late st Contact Info) Description 08/05/2022 10:30 AM CDT Initial consult [facility] Plastic Surgery [address] [place] [phone] Dorita Dumont PA-C [address] [place] [phone] Marylou Tripp MD [place] [address] Right hand pain (Primary Dx); Right wrist [...] Author No 10/25/2017 2:00 PM Deonna Padilla, TIGER MACHINE OPERATOR * Do you have difficulty [...] hand. 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 He has been wearing a left [...] This was done several years ago in [place]. He denies any numbness and tingling in [...] AM CDT Narrative 08/05/2022 11:54 AM CDT [address] ??[address] DIAGNOSTIC IMAGING Name: EDILBERTO DURAND ??Ordering Phys: MARYLOU TRIPP Date of : 1955 ?Gender: M ??Accession Number: [id number] EXAM DESCRIPTION: XR WRIST MIN 3 VIEWS [...] Procedure Note Kerwin Malik MD - 08/05/[address] [address] DIAGNOSTIC IMAGING Name: EDILBERTO DURAND Ordering Phys: MARYLOU TRIPP Date of : 1955 Gender: M Accession Number: [id number] EXAM DESCRIPTION: XR WRIST MIN 3 VIEWS [...] AM CDT Narrative 08/06/2022 1:41 PM CDT [address] ??[address] DIAGNOSTIC IMAGING Name: EDILBERTO DURAND ??Ordering Phys: MARYLOU TRIPP Date of : 1955 ?Gender: M ??Accession Number: [id number] EXAM DESCRIPTION: XR HAND MIN 3 VIEWS [id number] RT RT REASON FOR STUDY: Age: 66 [...] Procedure Note Kerwin Malik MD - 08/06/2022 [place] [address] DIAGNOSTIC IMAGING Name: KIZZY EDILBERTO DELONG Ordering Phys: MARYLOU TRIPP Date of : 1955 Gender: M Accession Number: [id number] EXAM DESCRIPTION: XR HAND MIN 3 VIEWS [id number] RT RT REASON FOR STUDY: Age: 66 [...] documented as of this encounter Care Teams Railway Yard Assistant Relationship Specialty Start Date End Date Jose Manuel Villegas MD [facility] [place] [address] PCP - General Pickers Material Handlers 05/12/22 11/25/22 Lacey Perdue MD [address] [phone] Referring Physician Infectious Diseases 06/28/18 documented as of this encounter
--- OUTSIDE RECORDS SUMMARY | 2024-11-23 10:14 | XMS_ITS | Encounter Summary ---
Author Organization [employer] Address [address] [place] [address] Care Team Providers Care Electrical Supervisor Name Role Phone Lacey Perdue MD Unavailable [phone] Patient, None Per Primary Care Provider Unavaila [...] Assessment Author No 10/25/2017 2:00 PM RESEARCH CENTER PARTNER Deonna Galvan, HOISTMAN * Do you have difficulty dressing or bathing? (5 years old or older) Answer Date of Assessment Author No 10/25/2017 2:00 PM RESEARCH CENTER PARTNER Deonna Galvan, HOISTMAN * Because of a physical, mental, or emotional condition, do you have difficulty doing errands alone such as visiting a doctor's office or shopping? (15 years old or older) Answer Date of Assessment Author No 10/25/2017 2:00 PM RESEARCH CENTER PARTNER Deonna Galvan, HOISTMAN documented as of this encounter Mental Status * Because of a physical, mental, or emotional condition, do you have serious difficulty concentrating, remembering, or making decisions? (5 years old or older) Answer Entry Date Author No 10/25/2017 2:00 PM RESEARCH CENTER PARTNER Deonna Galvan, HOISTMAN documented in this encounter Plan of Treatment [...] documented for the patient 12/23/2021 12:30 PM RESEARCH CENTER PARTNER documented as of this encounter Care Teams Electrical Supervisor Relationship Specialty Start Date End Date Patient, None Per PCP - General 02/26/22 05/11/22 Lacey Perdue MD [address] [phone] Referring Physician Infectious Diseases 06/28/18 documented as of this encounter
--- OUTSIDE RECORDS SUMMARY | 2024-11-23 10:14 | XMS_ITS | Encounter Summary ---
Author Organization [facility] Address [address] [place] [address] Care Team Providers Care Compo Conveyor Operator Name Role Phone Lacey Perdue MD Unavailable [phone] Michell Trevizo MD Primary Care Provider Reason for Visit * Reason Comments Medication Refill Encounter Details Date Type Department Care Team (Late st Contact Info) Description 02/10/2022 Refill [facility] Internal Medicine [address] [place] [phone] Michell Trevizo MD [address] [place] [address] Social History Tobacco Use Types Packs/Day [...] of Assessment Author No 10/25/2017 2:00 PM NURSE EXECUTIVE Deonna Galvan, GEORGE * Are you blind or do you have serious difficulty seeing, even when wearing glasses? Answer Date of Assessment Author No 10/25/2017 2:00 PM Deonna Padilla, FUEL CELL BUILDER * Do you have serious difficulty walking or climbing stairs? (5 years old or older) Answer Date of Assessment Author No 10/25/2017 2:00 PM Deonna Padilla, FUEL CELL BUILDER * Do you have difficulty dressing or bathing? (5 years old or older) Answer Date of Assessment Author No 10/25/2017 2:00 PM Deonna Padilla, FUEL CELL BUILDER * Because of a physical, mental, or [...] documented for the patient 12/23/2021 12:30 PM NURSE EXECUTIVE documented as of this encounter Care Teams Compo Conveyor Operator Relationship Specialty Start Date End Date Michell Trevizo MD [address] [place] [address] PCP - General Internal Medicine 05/29/21 02/25/22 Lacey Perdue MD [address] [phone] Referring Physician Infectious Diseases 06/28/18 documented as of this encounter
--- OUTSIDE RECORDS SUMMARY | 2024-11-23 10:14 | XMS_ITS | Encounter Summary ---
Author Organization [employer] Address [address] [place] [address] Care Team Providers Care Psychology Assistant Name Role Phone Lacey Perdue MD Unavailable [phone] Catarina Maurer MD Primary Care Provider Reason for Referral * MRI/CAT Scan (Urgent) - Closed Specialty Diagnoses / Procedures Referred By Contac t Referred To Contact Radiology Diagnoses Intractable abdominal pain Other osteoarthritis involving multiple joints Procedures CT Abdomen and Pelvis w Contrast Catarina Maurer MD [address] [place] [address] Phone: tel: fax: Referral ID Status Reason Start Date Expiration Date Visits Re quested Visits Authorized [id number] Closed 05/12/2022 11/13/2023 1 1 Reason for Visit * Reason Comments Establish Care Pain in left wrist a nd shoulder from a fall a few days ago of a shed, right lower abd pain. And lower back pain Encounter Details Date Type Department Care Team (Latest Contact Info) Description 05/12/2022 9:15 AM CDT Office Visit [facility] [address] [place] [phone] Catarina Maurer MD [address] [place] [address] Intractable abdominal pain (Primary Dx); Other [...] Maurer MD - 05/12/2022 9:15 AM CDT [facility] Department of Family Medicine [address] [place], [place] [id number] Date: 05/12/2022 Name: Edilberto Hawley : 1955 [...] AM This document was dictated using Dragon curbing stonecutter variances may occur documented in this encounter [...] AM CDT Narrative 05/12/2022 12:11 PM CDT [address] ??[address] DIAGNOSTIC IMAGING Name: EDILBERTO HAWLEY ??Ordering Phys: CATARINA MAURER Date of : 1955 ?Gender: M ??Accession Number: [id number] EXAM DESCRIPTION: CT ABDOMEN AND PELVIS W [...] Procedure Note Jesús Clark MD - 05/12/2022 [place] [address] DIAGNOSTIC IMAGING Name: EDILBERTO HAWLEY Ordering Phys: CATARINA MAURER Date of : 1955 Gender: M Accession Number: [id number] EXAM DESCRIPTION: CT ABDOMEN AND PELVIS W [...] by Jesús Clark M.D. Catarina Maurer [place] [facility] [place] Final Res ult * (ABNORMAL) Comprehensive metabolic panel (05/12/2022 11:22 AM CDT) Glucose 175(H) 60 - 100 mg/dL [facility] Comment: Fasting Plasma Glucose (FPG) ?<100 MG/DL Impaired Fasting Glucose (IFG) ? 100-125 MG/DL Provisional Diagnosis of Diabetes Mellitus ?? > or = 126 MG/DL (Diagnosis Must Be Confirmed) BUN 16 8 - 26 mg/dL [facility] Creatinine 1.08 0.70 - 1.40 mg/dL [facility] Glomerular Filtration Rate Estimate 74(L) >80 mL/min/1.7 3m2 [facility] Comment:The estimated GFR george s not been validated for women or patients with serious comorbid conditions, or with extremes of body size, muscle mass, or nutritional status. Calcium 9.5 8.4 - 10.2 mg/dL [facility] Sodium 141 136 - 145 mmol/L [facility] Potassium 4.2 3.4 - 4.9 mmol/L [facility] Chloride 103 99 - 111 mmol/L [facility] CO2 28.2 21.0 - 32.0 mmol/L [facility] Albumin 4.2 3.5 - 5.0 g/dL [facility] Total Protein 7.4 6.1 - 8.0 g/dL [facility] Bilirubin Total 0.9 0.2 - 1.2 mg/dL [facility] Alkaline Phosphatase 67 40 - 150 U/L [facility] AST 50(H) 5 - 34 U/L [facility] ALT 68(H) 0 - 55 u/L [facility] Blood 05/12/2022 11:2 2 AM CDT 05/12/2022 11:23 AM CDT Comment:- Narrative [facility] - 05/12/2022 11:45 AM CDT Testing performed at [facility], [address] [place] [address]. CLIA [id number] Phone [phone] Ext [phone] ??Physicist Nuclear Shant Rivas MD us Catarina Maurer MD LAB BLOOD ORDERABLES Final Result [facility] [address] [place] [address] [phone] * (ABNORMAL) Lipid panel (05/12/2022 11:22 AM CDT) Cholesterol 143 0 - 200 mg/dL [facility] Comment:Cholesterol preferre d <200 mg/dL. Clinical correlation is essential. Triglycerides 88 0 - 200 mg/dL [facility] HDL Cholesterol 43(L) >60 mg/dL [facility] LDL, Calculated 82.4 mg/dL [facility] Comment: <100 ?Optimal 100-129 ? Near Optimal/Above Optimal 130-159 ? Borderline High 160-189 ? High >or =190 ?Very High Cholesterol/HDL Ratio 3.3 [facility] Comment:HDL:Chol ratio Low R isk 1:3.3-1:4.3, Clinical Correlation essential. Blood 05/12/2022 11:2 2 AM CDT 05/12/2022 11:23 AM CDT Comment:- Narrative [facility] - 05/12/2022 11:45 AM CDT Testing performed at [facility], [address] [place] [address]. CLIA [id number] Phone [phone] Ext [phone] ??Physicist Nuclear Shant Rivas MD Catarina Maurer MD LAB BLOOD ORDERABLES Final Result Performing Organization Address [facility] Co de Phone Number [facility] [address] [place] [address] [phone] * High sensitivity CRP (05/12/2022 11:22 AM CDT) CRP 4.11 <5.00 mg/L [facility] Blood 05/12/2022 11:2 2 AM CDT 05/12/2022 11:23 AM CDT Comment:- Narrative [facility] - 05/12/2022 11:45 AM CDT Testing performed at [facility], [address] [place] [address]. CLIA [id number] Phone [phone] Ext [phone] ??Physicist Nuclear Shant Rivas MD Catarina Maurer MD LAB BLOOD ORDERABLES Final Result Performing Organization Address [facility] Co de Phone Number [facility] [address] [place] [address] [phone] * Sedimentation rate (05/12/2022 11:22 AM CDT) Pathologist [facility] Sedimentation Rate 19 0 - 20 mm/hr [facility] Blood 05/12/2022 11:2 2 AM CDT 05/12/2022 11:23 AM CDT Comment:- Narrative [facility] - 05/12/2022 11:55 AM CDT Testing performed at [facility], [address] [place] [address]. CLIA [id number] Phone [phone] Ext [phone] ??Physicist Nuclear Shant Rivas MD Catarina Maurer MD LAB BLOOD ORDERABLES Final Result Performing Organization Address City/State/[facility] Co de Phone Number [facility] [address] [place] [address] [phone] * CBC auto differential (05/12/2022 11:22 AM CDT) Pathologist [facility] WBC 7.8 3.1 - 11.0 x10^3/uL [facility] RBC 4.91 4.29 - 5.55 x10^6/uL [facility] HGB 15.7 13.4 - 16.9 g/dL [facility] HCT 46.6 38.0 - 50.0 % [facility] MCV 94.9 82.0 - 98.0 fL [facility] MCH 32.0 27.2 - 33.3 pg [facility] MCHC 33.7 32.0 - 36.0 g/dL [facility] RDW-CV 12.2 11.4 - 14.2 % [facility] SD-RDW 42.0 36.0 - 47.0 fL [facility] Platelets 173 147 - 370 x10^3/uL [facility] MPV 10.2 9.1 - 12.1 fL [facility] NE% 53.9 42.0 - 76.0 % [facility] %LYMPH 33.6 13.5 - 48.0 % [facility] %MONO 10.1 3.5 - 14.0 % [facility] % Eosinophils 1.7 0.0 - 7.0 % [facility] % Basophils 0.4 0.0 - 1.5 % [facility] Imm Gran Relative 0.3 0.0 - 1.0 % [facility] NE# 4.2 1.2 - 7.3 x10^3/uL [facility] Lymphs # 2.6 0.7 - 3.5 x10^3/uL [facility] Daviess# 0.8 0.2 - 0.9 x10^3/uL [facility] Eosinophil # 0.1 0.0 - 0.5 x10^3/uL [facility] Baso# 0.0 0.0 - 0.1 x10^3/uL [facility] Imm Gran Absolute 0.02 0.00 - 0.10 x10^3/uL [facility] NRBC % 0.00 0.00 - 0.10 /100 WBC [facility] Blood 05/12/2022 11:2 2 AM CDT 05/12/2022 11:23 AM CDT Comment:- Narrative [facility] - 05/12/2022 11:37 AM CDT Testing performed at [facility], [address] [place] [address]. CLIA [id number] Phone [phone] Ext [phone] ??Physicist Nuclear Shant Rivas MD us Catarina Maurer MD LAB BLOOD ORDERABLES Final Result [facility] [address] [place] [address] [phone] documented in this encounter Visit Diagnoses Diagnosis [...] documented as of this encounter Care Teams Psychology Assistant Relationship Specialty Start Date End Date Catarina Maurer MD [facility] [place] [address] PCP - General Tobacco Weigher 05/12/22 11/25/22 Lacey Perdue MD [address] [phone] Referring Physician Infectious Diseases 06/28/18 documented as of this encounter
--- OUTSIDE RECORDS SUMMARY | 2024-11-23 10:14 | XMS_ITS | Encounter Summary ---
Author Organization [employer] Address [address] [place] [address] Care Team Providers Care Burner Hand Name Role Phone Lacey Perdue MD Unavailable Jose Manuel Villegas MD Primary Care Provider Reason for Referral * Referral (Routine) - Closed Specialty Diagnoses / Procedures Referred By Celine almaguer Referred To Contact Orthopedic Surgery Diagnoses Other chronic pain Eden Segundo NP [address] [place] [address] Phone: tel: fax: [facility] [address] [place] [phone] Phone: tel: fax: Referral ID Status Reason Start Date Expiration Date V isits Requested Visits Authorized [id number] Closed Specialty Services Required 06/08/2022 12/10/2023 1 1 Encounter Details Date Type Department Care Team (Late st Contact Info) Description 05/28/2022 Transcribe Orders [facility] [address] [place] [phone] Kelsea Linares [address] [place] [phone] Other chronic pain (Primary Dx) Social [...] documented as of this encounter Care Teams Burner Hand Relationship Specialty Start Date End Date Jose Manuel Villegas MD [address] [place] [address] PCP - General [place]ram Sewer 05/12/22 11/25/22 Lacey Perdue MD [address] [phone] Referring Physician Infectious Diseases 06/28/18 documented as of this encounter
--- OUTSIDE RECORDS SUMMARY | 2024-11-23 10:14 | XMS_ITS | Encounter Summary ---
Author Organization [employer] Address [address] [place] [address] Care Team Providers Care Pediatric Assistant Name Role Phone Lacey Perdue MD Unavailable [phone] Michell Trevizo MD Primary Care Provider [phone] Reason for Visit * Reason Onset Date Comments Results 10/21/2021 Encounter Details Date Type Department Care Team (Late st Contact Info) Description 10/21/2021 Telephone [facility] [address] [place] [address] Eve Ward, WATER AND SEWER SYSTEMS SUPERVISOR [address] [place] [address] Results Social History Tobacco Use [...] COVID-19? No / Unsure 10/14/2021 8:23 AM HOLISTIC PULSER documented as of this encounter Functional Status * Are you deaf or do you have serious difficulty hearing? Answer Date of Assessment Author No 10/25/2017 2:00 PM HOLISTIC PULSER Cole Am y S, QUOTER * Are you blind or do you have serious difficulty seeing, even when wearing glasses? Answer Date of Assessment Author No 10/25/2017 2:00 PM HOLISTIC PULSER Galvan, Am y S, QUOTER * Do you have serious difficulty walking or climbing stairs? (5 years old or older) Answer Date of Assessment Author No 10/25/2017 2:00 PM HOLISTIC PULSER Cole Am y S, QUOTER * Do you have difficulty dressing or bathing? (5 years old or older) Answer Date of Assessment Author No 10/25/2017 2:00 PM HOLISTIC PULSER Cole Am y S, QUOTER * Because of a physical, mental, or emotional condition, do you have difficulty doing errands alone such as visiting a doctor's office or shopping? (15 years old or older) Answer Date of Assessment Author No 10/25/2017 2:00 PM HOLISTIC PULSER Cole Am y S, QUOTER documented as of this encounter Mental Status * Because of a physical, mental, or emotional condition, do you have serious difficulty concentrating, remembering, or making decisions? (5 years old or older) Answer Entry Date Author No 10/25/2017 2:00 PM HOLISTIC PULSER Deonna Galvan y S, QUOTER documented in this encounter Miscellaneous Notes * Telephone Encounter - Eve Ward LPN - 10/21/2021 4:29 PM CST Bactrim sent to pharmacy per melecio Kapoor STIC PULSER documented in this encounter Plan of Treatment [...] documented as of this encounter Care Teams Pediatric Assistant Relationship Specialty Start Date End Date Michell Trevizo MD [address] [place] [address] PCP - General Internal Medicine 05/29/21 02/25/22 Lacey Perdue MD [address] [place] [phone] Referring Physician Infectious Diseases 06/28/18 documented as of this encounter
--- OUTSIDE RECORDS SUMMARY | 2024-11-23 10:14 | XMS_ITS | Encounter Summary ---
Author Organization [email or web address] Address [address] [place] [address] Care Team Providers Care Genetics Nurse Name Role Phone Lacey Perdue MD Unavailable [phone] Michell Trevizo MD Primary Care Provider [phone] Reason for Visit * Reason Onset Date Comments Medication Refill 09/23/2021 Encounter Details Date Type Department Care Team (Late st Contact Info) Description 09/23/2021 Refill [facility] [address] [place] [address] Eve Ward, CUSTOMER SERVICE DRIVER [address] [place] [address] Social History Tobacco Use Types [...] Author No 10/25/2017 2:00 PM Deonna Padilla, CASH PROCESSOR * Are you blind or do you have serious difficulty seeing, even when wearing glasses? Answer Date of Assessment Author No 10/25/2017 2:00 PM Deonna Padilla S, CASH PROCESSOR * Do you have serious difficulty walking or climbing stairs? (5 years old or older) Answer Date of Assessment Author No 10/25/2017 2:00 PM Deonna Padilla S, CASH PROCESSOR * Do you have difficulty dressing or bathing? (5 years old or older) Answer Date of Assessment Author No 10/25/2017 2:00 PM Deonna Padilla, CASH PROCESSOR * Because of a physical, mental, or emotional condition, do you have difficulty doing errands alone such as visiting a doctor's office or shopping? (15 years old or older) Answer Date of Assessment Author No 10/25/2017 2:00 PM Deonna Padilla, CASH PROCESSOR documented as of this encounter Mental Status * Because of a physical, mental, or emotional condition, do you have serious difficulty concentrating, remembering, or making decisions? (5 years old or older) Answer Entry Date Author No 10/25/2017 2:00 PM Deonna Padilla CASH PROCESSOR documented in this encounter Plan of Treatment [...] documented as of this encounter Care Teams Genetics Nurse Relationship Specialty Start Date End Date Michell Trevizo MD [address] [place] [address] PCP - General Internal Medicine 05/29/21 02/25/22 Lacey Perdue MD [address] [phone] Referring Physician Infectious Diseases 06/28/18 documented as of this encounter
--- OUTSIDE RECORDS SUMMARY | 2024-11-23 10:14 | XMS_ITS | Encounter Summary ---
Author Organization [employer] Address [address] [place] [address] Care Team Providers Care Clerk Carrier Name Role Phone aLcey Perdue MD Unavailable [phone] Michell Trevizo MD Primary Care Provider [phone] Reason for Referral * Allergy Testing (Routine) - Closed Specialty Diagnoses / Procedures Referred By Contjessica t Referred To Contact Allergy Diagnoses Chronic rhinitis Carson Wolff MD [address] [place] [phone] Phone: tel: fax: Referral ID Status Reason Start Date Expiration Date V isits Requested Visits Authorized [id number] Closed Specialty Services Required 12/15/2021 06/18/2023 1 1 BUILDER Reason for Visit * Reason Comments Sinus Problem Encounter Details Date Type Department Care Team (Late st Contact Info) Description 12/15/2021 2:00 PM BODY BUILDER Office Visit [facility] ENT [address] [place] [phone] Carson Wolff MD [address] [place] [phone] Chronic rhinitis (Primary Dx); Left nasal [...] COVID-19? No / Unsure 12/15/2021 1:26 PM BODY BUILDER documented as of this encounter Functional Status * Are you deaf or do you have serious difficulty hearing? Answer Date of Assessment Author No 10/25/2017 2:00 PM BODY BUILDER Deonna Galvan, BOOK SHELVER * Are you blind or do you have serious difficulty seeing, even when wearing glasses? Answer Date of Assessment Author No 10/25/2017 2:00 PM BODY BUILDER Deonna Galvan, BOOK SHELVER * Do you have serious difficulty walking or climbing stairs? (5 years old or older) Answer Date of Assessment Author No 10/25/2017 2:00 PM Deonna Padilla, BOOK SHELVER * Do you have difficulty dressing or bathing? (5 years old or older) Answer Date of Assessment Author No 10/25/2017 2:00 PM Deonna Padilla, BOOK SHELVER * Because of a physical, mental, or [...] ??? Rotator cuff injury ??? Substance abuse ([facility]) ??? Migraines ??? Chronic back pain greater than 3 months duration ??? Arthritis ??? 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 Cellulitis of axilla, right ??? Avascular necrosis of bone (HCC) ??? Spinal stenosis ??? Chronic pain ??? Closed fracture of transverse process of lumbar vertebra with routine healing ??? Femoral acetabular impingement ??? 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 History of repair of left rotator cuff ??? Hyperlipidemia ??? penitentiary current use of opiate analgesic ??? Osteoarthritis [...] Osteomyelitis of ankle or foot, acute, right ([facility]) 2018 Stepped on nail ??? [...] back as consistent with polyp. Refer to receiver bulk system for allergic rhinitis and chronic sinusitis with [...] Ph.D. Otolaryngology - Head and Neck Surgery [facility] BUILDER documented in this encounter Plan of Treatment [...] Results * Tissue Exam (12/15/2021 3:56 PM BODY BUILDER) Pathologist Harvey Martinez M.D., Board Certified in Anatomic Pathology and Clinical Pathology. (electronic signature) [facility] A Clinical Impression Polyps [facility] A Source Polyps, nasal/sinus, biopsy [facility] A Gross Description SEE NOTE [facility] Comment: Specimen is received in formalin, labeled with multiple patient identifier(s) and consists of multiple piece(s) from nasal polyps aggregating to measuring 1.0 x 1.0 x 0.2 cm, irregular in shape and yellow-white in color. The specimen is entirely submitted in one cassette(s). ??Gross exam(s) performed at: [facility] ??[address] [facility] [id number] ??Proof Reader: DAVID DIA MD A Diagnosis Benign inflammatory nasal polyps. No malignancy. [facility] Tissue 12/15/2021 3:56 PM BODY BUILDER 12/17/2021 12:06 AM BODY BUILDER Comment:- Narrative [facility] - 12/17/2021 4:48 PM BODY BUILDER Collection Date->12/15/21 Collection Time-> 2:15 PM Touchworks # for Lab:->Left Testing performed at: [place], [facility], [address] [place], [address], Proof Reader: David Dia Carson Wolff MD PATHOLOGY/CYTOLOGY ORDERA BLES Final Result [facility] [address] [phone] documented in this encounter Visit Diagnoses [...] documented as of this encounter Care Teams Clerk Carrier Relationship Specialty Start Date End Date Michell Trevizo MD [facility] [place] [address] PCP - General Internal Medicine 05/29/21 02/25/22 Lacey Perdue MD [address] [phone] Referring Physician Infectious Diseases 06/28/18 documented as of this encounter
--- OUTSIDE RECORDS SUMMARY | 2024-11-23 10:14 | XMS_ITS | Encounter Summary ---
Author Organization [employer] Address [address] [place] [address] Care Team Providers Care Hot Roll Laminator Name Role Phone Lacey Perdue MD Unavailable [phone] Patient, None Per Primary Care Provider Unavaila ble Reason for Visit * Reason Onset Date Comments PCP 05/11/2022 New PCP, sched ed pt with [facility] 05/12/22 Encounter Details Date Type Department Care Team (Late st Contact Info) Description 05/11/2022 Telephone [facility] [address] [place] [address] Mia Warren [address] [place] [address] PCP (New PCP, scheduled pt [...] Author No 10/25/2017 2:00 PM Deonna Padilla, LINING CEMENTER * Do you have serious difficulty walking or climbing stairs? (5 years old or older) Answer Date of Assessment Author No 10/25/2017 2:00 PM Deonna Padilla, LINING CEMENTER * Do you have difficulty dressing or bathing? (5 years old or older) Answer Date of Assessment Author No 10/25/2017 2:00 PM Deonna Padilla, LINING CEMENTER * Because of a physical, mental, or emotional condition, do you have difficulty doing errands alone such as visiting a doctor's office or shopping? (15 years old or older) Answer Date of Assessment Author No 10/25/2017 2:00 PM Deonna Padilla, LINING CEMENTER documented as of this encounter Mental Status * Because of a physical, mental, or emotional condition, do you have serious difficulty concentrating, remembering, or making decisions? (5 years old or older) Answer Entry Date Author No 10/25/2017 2:00 PM Deonna Padilla, LINING CEMENTER documented in this encounter Miscellaneous Notes * [...] documented for the patient 12/23/2021 12:30 PM BOTTLE BOOTH ATTENDANT documented as of this encounter Care Teams Hot Roll Laminator Relationship Specialty Start Date End Date Patient, None Per PCP - General 02/26/22 05/11/22 Lacey Perdue MD [address] [phone] Referring Physician Infectious Diseases 06/28/18 documented as of this encounter
--- OUTSIDE RECORDS SUMMARY | 2024-11-23 10:14 | XMS_ITS | Encounter Summary ---
Author Organization [facility] [facility] Address [address] [place] [address] Care Team Providers Care Credit Reference Clerk Name Role Phone Lacey Perdue MD Unavailable [phone] Michell Trevizo MD Primary Care Provider [phone] Reason for Visit * Reason Comments Medication Refill Encounter Details Date Type Department Care Team (Late st Contact Info) Description 02/02/2022 Refill [facility] Internal Medicine [address] [place] [address] Michell Trevizo MD [address] [place] [address] Social History Tobacco Use Types Packs/Day [...] Assessment Author No 10/25/2017 2:00 PM MANAGER CASE Deonna Galvan, GEORGE * Are you blind or do you have serious difficulty seeing, even when wearing glasses? Answer Date of Assessment Author No 10/25/2017 2:00 PM Deonna Padilla, LENS AND FRAMES PRESCRIPTION CLERK * Do you have serious difficulty walking or climbing stairs? (5 years old or older) Answer Date of Assessment Author No 10/25/2017 2:00 PM Deonna Padilla, LENS AND FRAMES PRESCRIPTION CLERK * Do you have difficulty dressing or bathing? (5 years old or older) Answer Date of Assessment Author No 10/25/2017 2:00 PM Deonna Padilla, LENS AND FRAMES PRESCRIPTION CLERK * Because of a physical, mental, [...] documented for the patient 12/23/2021 12:30 PM MANAGER CASE documented as of this encounter Care Teams Credit Reference Clerk Relationship Specialty Start Date End Date Michell Trevizo MD [address] [place] [address] PCP - General Internal Medicine 05/29/21 02/25/22 Lacey Perdue MD [address] [phone] Referring Physician Infectious Diseases 06/28/18 documented as of this encounter
--- OUTSIDE RECORDS SUMMARY | 2024-11-23 10:14 | XMS_ITS | Encounter Summary ---
Author Organization [employer] Address [address] [place] [address] Care Team Providers Care Gas Station Supervisor Name Role Phone Lacey Perdue MD Unavailable [phone] Michell Trevizo MD Primary Care Provider [phone] Reason for Visit * Reason Onset Date Comments Amitriptyline update 01/06/2022 Encounter Details Date Type Department Care Team (Late st Contact Info) Description 01/06/2022 Telephone [facility] Internal Medicine [address] [place] [address] Meme Chen LPN [address] [place] [address] Amitriptyline update Social History Tobacco [...] COVID-19? No / Unsure 12/23/2021 11:28 AM PEDIATRIC SOCIAL WORKER documented as of this encounter Functional Status * Are you deaf or do you have serious difficulty hearing? Answer Date of Assessment Author No 10/25/2017 2:00 PM PEDIATRIC SOCIAL WORKER Deonna Galvan, FILLER SIFTER HELPER * Are you blind or do you have serious difficulty seeing, even when wearing glasses? Answer Date of Assessment Author No 10/25/2017 2:00 PM PEDIATRIC SOCIAL WORKER Deonna Galvan y S, FILLER SIFTER HELPER * Do you have serious difficulty walking or climbing stairs? (5 years old or older) Answer Date of Assessment Author No 10/25/2017 2:00 PM PEDIATRIC SOCIAL WORKER Deonna Galvan S, FILLER SIFTER HELPER * Do you have difficulty dressing or bathing? (5 years old or older) Answer Date of Assessment Author No 10/25/2017 2:00 PM PEDIATRIC SOCIAL WORKER Deonna Galvan S, FILLER SIFTER HELPER * Because of a physical, mental, or emotional condition, do you have difficulty doing errands alone such as visiting a doctor's office or shopping? (15 years old or older) Answer Date of Assessment Author No 10/25/2017 2:00 PM PEDIATRIC SOCIAL WORKER Deonna Galvan, FILLER SIFTER HELPER documented as of this encounter Mental Status * Because of a physical, mental, or emotional condition, do you have serious difficulty concentrating, remembering, or making decisions? (5 years old or older) Answer Entry Date Author No 10/25/2017 2:00 PM PEDIATRIC SOCIAL WORKER Deonna Galvan, FILLER SIFTER HELPER documented in this encounter Miscellaneous Notes [...] to make you aware. Meme Chen LPN ATRIC SOCIAL WORKER documented in this encounter Plan of [...] documented for the patient 12/23/2021 12:30 PM PEDIATRIC SOCIAL WORKER documented as of this encounter Care Teams Gas Station Supervisor Relationship Specialty Start Date End Date Michell Trevizo MD [address] [place] [address] PCP - General Internal Medicine 05/29/21 02/25/22 Lacey Perdue MD [address] [phone] Referring Physician Infectious Diseases 06/28/18 documented as of this encounter
--- OUTSIDE RECORDS SUMMARY | 2024-11-23 10:14 | XMS_ITS | Encounter Summary ---
Author Organization [employer] Address [address] [place] [address] Care Team Providers Care Grinder Setup Operator Name Role Phone Lacey Perdue MD Unavailable Jose Manuel Villegas MD Primary Care Provider Encounter Details Date Type Department Care Team (Late st Contact Info) Description 05/15/2022 Orders Only [facility] Centralized Scanning Jose Manuel Villegas MD [address] [place] [address] Social History Tobacco Use Types [...] of Assessment Author No 10/25/2017 2:00 PM CURATOR HORTICULTURAL MUSEUM Galvan, Am y S, CERTIFIED CREDIT COUNSELOR * Are you blind or do you have serious difficulty seeing, even when wearing glasses? Answer Date of Assessment Author No 10/25/2017 2:00 PM Deonna Padilla S, CERTIFIED CREDIT COUNSELOR * Do you have serious difficulty walking or climbing stairs? (5 years old or older) Answer Date of Assessment Author No 10/25/2017 2:00 PM JOHN Galvan Am y S, CERTIFIED CREDIT COUNSELOR * Do you have difficulty dressing or bathing? (5 years old or older) Answer Date of Assessment Author No 10/25/2017 2:00 PM Deonna Padilla S, CERTIFIED CREDIT COUNSELOR * Because of a physical, mental, or emotional condition, do you have difficulty doing errands alone such as visiting a doctor's office or shopping? (15 years old or older) Answer Date of Assessment Author No 10/25/2017 2:00 PM Deonna Padilla, CERTIFIED CREDIT COUNSELOR documented as of this encounter Mental Status * Because of a physical, mental, or emotional condition, do you have serious difficulty concentrating, remembering, or making decisions? (5 years old or older) Answer Entry Date Author No 10/25/2017 2:00 PM Deonna Padilla, CERTIFIED CREDIT COUNSELOR documented in this encounter Plan of [...] documented as of this encounter Care Teams Grinder Setup Operator Relationship Specialty Start Date End Date Jose Manuel Villegas MD [address] [place] [address] PCP - General Swing Saw Operator 05/12/22 11/25/22 Lacey Perdue MD [address] [phone] Referring Physician Infectious Diseases 06/28/18 documented as of this encounter
--- OUTSIDE RECORDS SUMMARY | 2024-11-23 10:14 | XMS_ITS | Encounter Summary ---
Author Organization [employer] Address [address] [place] [address] Care Team Providers Care Tail End Rider Name Role Phone Lacey Perdue MD Unavailable [phone] Michell Trevizo MD Primary Care Provider [phone] Reason for Visit * Reason Comments Medication Refill Encounter Details Date Type Department Care Team ([facility] st Contact Info) Description 09/24/2021 Refill [facility] Internal Medicine [address] [place] [address] Michell Trevizo MD [address] [place] [address] Social History Tobacco Use Types Packs/Day [...] Author No 10/25/2017 2:00 PM Deonna Padilla, TREASURY ASSOCIATE * Are you blind or do you have serious difficulty seeing, even when wearing glasses? Answer Date of Assessment Author No 10/25/2017 2:00 PM Deonna Padilla, TREASURY ASSOCIATE * Do you have serious difficulty walking or climbing stairs? (5 years old or older) Answer Date of Assessment Author No 10/25/2017 2:00 PM Deonna Padilla, TREASURY ASSOCIATE * Do you have difficulty dressing or bathing? (5 years old or older) Answer Date of Assessment Author No 10/25/2017 2:00 PM Deonna Padilla, TREASURY ASSOCIATE * Because of a physical, mental, or emotional condition, do you have difficulty doing errands alone such as visiting a doctor's office or shopping? (15 years old or older) Answer Date of Assessment Author No 10/25/2017 2:00 PM Deonna Padilla, TREASURY ASSOCIATE documented as of this encounter Mental Status * Because of a physical, mental, or emotional condition, do you have serious difficulty concentrating, remembering, or making decisions? (5 years old or older) Answer Entry Date Author No 10/25/2017 2:00 PM Deonna Padilla TREASURY ASSOCIATE documented in this encounter Plan of [...] documented as of this encounter Care Teams Tail End Rider Relationship Specialty Start Date End Date Michell Trevizo MD [address] [place] [address] PCP - General Internal Medicine 05/29/21 02/25/22 Lacey Perdue MD [address] [phone] Referring Physician Infectious Diseases 06/28/18 documented as of this encounter
--- OUTSIDE RECORDS SUMMARY | 2024-11-23 10:14 | XMS_ITS | Encounter Summary ---
Author Organization [employer] Address [address] [place] [address] Care Team Providers Care Salt Refiner Name Role Phone Lacey Perdue MD Unavailable [phone] Michell Trevizo MD Primary Care Provider [phone] Reason for Visit * Reason Onset Date Comments Medication Refill 12/19/2021 Resent Fax wit insurance card Encounter Details Date Type Department Care Team (Late st Contact Info) Description 12/19/2021 Telephone [facility] ENT [address] [place] [address] Sandy Galindo LPN [address] [place] [address] Medication Refill (Resent Fax with [...] COVID-19? No / Unsure 12/15/2021 1:26 PM POKER MANAGER documented as of this encounter Functional Status * Are you deaf or do you have serious difficulty hearing? Answer Date of Assessment Author No 10/25/2017 2:00 PM POKER MANAGER Deonna Galvan, RN WOMEN SERVICES * Are you blind or do you have serious difficulty seeing, even when wearing glasses? Answer Date of Assessment Author No 10/25/2017 2:00 PM POKER MANAGER Cole Am y S, RN WOMEN SERVICES * Do you have serious difficulty walking or climbing stairs? (5 years old or older) Answer Date of Assessment Author No 10/25/2017 2:00 PM POKER MANAGER Deonna Galvan y S, RN WOMEN SERVICES * Do you have difficulty dressing or bathing? (5 years old or older) Answer Date of Assessment Author No 10/25/2017 2:00 PM Deonna Padilla S, RN WOMEN SERVICES * Because of a physical, mental, or emotional condition, do you have difficulty doing errands alone such as visiting a doctor's office or shopping? (15 years old or older) Answer Date of Assessment Author No 10/25/2017 2:00 PM POKER MANAGER Deonna Galvan S, RN WOMEN SERVICES documented as of this encounter Mental Status * Because of a physical, mental, or emotional condition, do you have serious difficulty concentrating, remembering, or making decisions? (5 years old or older) Answer Entry Date Author No 10/25/2017 2:00 PM Deonna Padilla, RN WOMEN SERVICES documented in this encounter Miscellaneous Notes * Telephone Encounter - Sandy Galindo LPN - 12/19/2021 9:51 AM CST Se called saying he wanted Mometasone to be run under his insurance. I resent order with his insurance card. R MANAGER documented in this encounter Plan of [...] documented as of this encounter Care Teams Salt Refiner Relationship Specialty Start Date End Date Michell Trevizo MD [address] [place] [address] PCP - General Internal Medicine 05/29/21 02/25/22 Lacey Perdue MD [address] [phone] Referring Physician Infectious Diseases 06/28/18 documented as of this encounter
--- OUTSIDE RECORDS SUMMARY | 2024-11-23 10:14 | XMS_ITS | Encounter Summary ---
Author Organization [employer] Address [address] [place] [address] Care Team Providers Care Air Hose Coupler Name Role Phone Lacey Perdue MD Unavailable [phone] Jose Manuel Villegas MD Primary Care Provider Reason for Visit * Reason Onset Date Comments Reschedule 07/14/2022 Encounter Details Date Type Department Care Team (Late st Contact Info) Description 07/14/2022 Telephone [facility] Family Practice [address] [place] [address] Mia Warren [address] [place] [address] Reschedule Social History Tobacco Use [...] No 10/25/2017 2:00 PM Deonna Padilla, ASSISTANT PLANT MANAGER * Do you have serious difficulty walking or climbing stairs? (5 years old or older) Answer Date of Assessment Author No 10/25/2017 2:00 PM Deonna Padilla, ASSISTANT PLANT MANAGER * Do you have difficulty dressing or bathing? (5 years old or older) Answer Date of Assessment Author No 10/25/2017 2:00 PM Deonna Padilla, ASSISTANT PLANT MANAGER * Because of a physical, mental, or emotional condition, do you have difficulty doing errands alone such as visiting a doctor's office or shopping? (15 years old or older) Answer Date of Assessment Author No 10/25/2017 2:00 PM Deonna Padilla, ASSISTANT PLANT MANAGER documented as of this encounter Mental Status * Because of a physical, mental, or emotional condition, do you have serious difficulty concentrating, remembering, or making decisions? (5 years old or older) Answer Entry Date Author No 10/25/2017 2:00 PM Deonna Padilla, ASSISTANT PLANT MANAGER documented in this encounter Miscellaneous Notes [...] as of this encounter Care Teams Air Hose Coupler Relationship Specialty Start Date End Date Jose Manuel Villegas MD [address] [place] [address] PCP - General Data Collection Technician 05/12/22 11/25/22 Lacey Perdue MD [address] [phone] Referring Physician Infectious Diseases 06/28/18 documented as of this encounter
--- OUTSIDE RECORDS SUMMARY | 2024-11-23 10:14 | XMS_ITS | Encounter Summary ---
Author Organization [facility] Address [address] [place] [address] Care Team Providers Care Machine Grainer Name Role Phone Lacey Perdue MD Unavailable [phone] Michell Trevizo MD Primary Care Provider [phone] Encounter Details Date Type Department Care Team (Late st Contact Info) Description 10/06/2021 Orders Only [facility] Centralized Scanning Carson Wolff MD [address] [place] [address] Social History Tobacco Use Types [...] COVID-19? No / Unsure 10/14/2021 8:23 AM IT ARCHITECTURE ANALYST documented as of this encounter Functional Status * Are you deaf or do you have serious difficulty hearing? Answer Date of Assessment Author No 10/25/2017 2:00 PM IT ARCHITECTURE ANALYST Galvan, Am y S, SAFETY NET MAKER * Are you blind or do you have serious difficulty seeing, even when wearing glasses? Answer Date of Assessment Author No 10/25/2017 2:00 PM JOHN Galvan Am y S, SAFETY NET MAKER * Do you have serious difficulty walking or climbing stairs? (5 years old or older) Answer Date of Assessment Author No 10/25/2017 2:00 PM JOHN Galvan Am y S, SAFETY NET MAKER * Do you have difficulty dressing or bathing? (5 years old or older) Answer Date of Assessment Author No 10/25/2017 2:00 PM JOHN Galvan Am y S, SAFETY NET MAKER * Because of a physical, mental, or emotional condition, do you have difficulty doing errands alone such as visiting a doctor's office or shopping? (15 years old or older) Answer Date of Assessment Author No 10/25/2017 2:00 PM JOHN Galvan Am y S, SAFETY NET MAKER documented as of this encounter Mental Status * Because of a physical, mental, or emotional condition, do you have serious difficulty concentrating, remembering, or making decisions? (5 years old or older) Answer Entry Date Author No 10/25/2017 2:00 PM JONH Galvan Am y S, SAFETY NET MAKER documented in this encounter Plan of [...] Wolff MD PATHOLOGY/CYTOLOGY ORDERA SHARONDA Final Result [facility] [place] at [address] [place] [address] documented in this encounter Visit Diagnoses Not on filedocumented in this encounter Additional Health Concerns Assessment Noted Time A fall risk assessment has been complete d for the patient 08/27/2021 11:36 AM CDT A Body Mass Index follow-up plan has been documented for the patient 06/30/2021 12:12 PM CDT documented as of this encounter Care Teams Machine Grainer Relationship Specialty Start Date End Date Michell Trevizo MD [facility] [place] [address] PCP - General Internal Medicine 05/29/21 02/25/22 Lacey Perdue MD [address] [place] [phone] Referring Physician Infectious Diseases 06/28/18 documented as of this encounter
--- OUTSIDE RECORDS SUMMARY | 2024-11-23 10:14 | XMS_ITS | Encounter Summary ---
Author Organization [employer] Address [address] [place] [address] Care Team Providers Care Toxicologist Name Role Phone Lacey Perdue MD Unavailable [phone] Patient, None Per Primary Care Provider Unavaila ble Reason for Visit * Reason Onset Date Comments New PCP 04/02/2022 New PCP Encounter Details Date Type Department Care Team ([facility] st Contact Info) Description 04/02/2022 Telephone [facility] Family Practice [address] [place] [address] Reema Bull [address] [place] [address] New PCP (New PCP) Social [...] Author No 10/25/2017 2:00 PM Deonna aPdilla, PROCUREMENT CONSULTANT * Do you have serious difficulty walking or climbing stairs? (5 years old or older) Answer Date of Assessment Author No 10/25/2017 2:00 PM Deonna Padilla, PROCUREMENT CONSULTANT * Do you have difficulty dressing or bathing? (5 years old or older) Answer Date of Assessment Author No 10/25/2017 2:00 PM Deonna Padilla, PROCUREMENT CONSULTANT * Because of a physical, mental, [...] documented for the patient 12/23/2021 12:30 PM TUMBLER OPERATOR documented as of this encounter Care Teams Toxicologist Relationship Specialty Start Date End Date Patient, None Per PCP - General 02/26/22 05/11/22 Lacey Perdue MD [address] [facility] [address] [place] [phone] Referring Physician Infectious Diseases 06/28/18 documented as of this encounter
--- OUTSIDE RECORDS SUMMARY | 2024-11-23 10:14 | XMS_ITS | Encounter Summary ---
Author Organization [employer] Address [address] [place] [address] Care Team Providers Care Theatre Director Name Role Phone Lacey Perdue MD Unavailable [phone] Michell Trevizo MD Primary Care Provider [phone] Reason for Visit * Reason Comments Shortness of Breath Pt presents with SOB that started around 10/14/21 after having COVID-19 but over the last couple of days has become worse and this morning significantly worse. States he does not have any history of asthma or COPD. Encounter Details Date Type Department Care Team (Late st Contact Info) Description 11/19/2021 9:06 AM MEDICAL IMAGING TECHNICIAN - 11/19/2021 10:58 AM [facility] Emergency [facility] [place] [facility] [address] [place] [phone] Rickey Bailey F, DO [address] [address] Bronchitis due to COVID-19 virus (Primary Dx); [...] COVID-19? No / Unsure 11/19/2021 9:18 AM MEDICAL IMAGING TECHNICIAN documented as of this encounter Last Filed Vital Signs Vital Sign Reading Time Taken Comments Blood Pressure 135/83 11/19/2021 10:55 AM MEDICAL IMAGING TECHNICIAN Pulse 70 11/19/2021 10:55 AM MEDICAL IMAGING TECHNICIAN Temperature 36.8 ??C (98.3 ??F) 11/19/2021 10:[address] Respiratory Rate 20 11/19/2021 10:55 AM MEDICAL IMAGING TECHNICIAN Oxygen Saturation 95% 11/19/2021 10:55 AM MEDICAL IMAGING TECHNICIAN Inhaled Oxygen Concentration - - Weight 88.5 kg (195 lb) 11/19/2021 9:15 AM MEDICAL IMAGING TECHNICIAN Height 180.3 cm (5' 11 ) 11/19/2021 9:15 AM MEDICAL IMAGING TECHNICIAN Body Mass Index 27.2 11/19/2021 9:15 AM MEDICAL IMAGING TECHNICIAN documented in this encounter Functional Status * [...] Date Author No 10/25/2017 2:00 PM MEDICAL IMAGING TECHNICIAN Deonna Galvan ARNP documented in this encounter Discharge Instructions * Discharge Instructions* Jacqueline De La Vega, RN - 11/19/2021 10:51 AM MEDICAL IMAGING TECHNICIAN Images from the original note were not [...] Get some extra rest. ?? Take an yudy-auw-rspaodl pain medicine, such as acetaminophen (Tylenol), ibuprofen (Advil, Motrin), or naproxen (Aleve) to reduce fever and relieve body aches. Read and follow all instructions on the label. ?? Do not take two or more pain medicines at the same time unless the doctor told you to. Many painmedicines have acetaminophen, which is Tylenol. Too much acetaminophen (Tylenol) can be harmful. ?? Take an tlwq-kbv-xlpvhdl cough medicine to help quiet a dry, [...] option found under the Resources tab in RAP Index [email or web address] [email or web address]/[email or web address]. If you do not have access to RAP Index, you can visit https://[employer] ([employer]) IT/patient-care and select [employer] from the menu on the left. Enter H333 in the search box to learn more about Bronchitis: Care Instructions. Not on RAP Index? Go to [email or web address]/[email or web address] and click the Sign Up Now link to request an activation code. Current as of: May 20, 2021?Content Version: 13.0 ?? The Training Room (TTR). Care instructions adapted under license by your healthcare professional. This care instruction is for use with your licensed healthcare professional. If you have questions about a medical condition or this instruction, always ask your healthcare professional. The Training Room (TTR) disclaims any warranty or liability for your use of this information. CAL IMAGING TECHNICIAN documented in this encounter Medications at Time [...] nail ??? Shoulder injury ??? Substance abuse ([facility]) cocaine, crystal meth nothing since 1996 ??? [...] Electronically signed by Dayanna Durbin M.D. Narrative: [address] [place] [address] DIAGNOSTIC IMAGING Name: EDILBERTO HAWLEY Ordering Phys: RICKEY BAILEY Date of : 1955 Gender: M Accession Number: [id number] EXAM DESCRIPTION: XR CHEST 2 VIEWS REASON [...] fails to improve. Disposition: Data Unavailable dismiss [facility] This visit occurred during a National Public Health Emergency due to the SARS-CoV-2 Pandemic. I performed this consultation in person. PPE I used included n20ocps. Rickey Bailey, 11/19/21 1037 Rickey Bailey DO 11/19/21 1042 CAL IMAGING TECHNICIAN CAL IMAGING TECHNICIAN documented in this encounter Plan of Treatment Not on file documented as of this encounter Goals Goal Patient Goal Type Associated Problems Recent Progress Patient-Stated? Author Blood Pressure < 140/90 Blood Pressure 134/86(2022 2:25 PM CDT) No Leonard Jasso, ANGIE documented as of this encounter Procedures Procedure Name Priority Date/Time Associated Diagnosis Comments XR CHEST 2 VIEWS STAT 11/19/2021 10:1 0 AM MEDICAL IMAGING TECHNICIAN TROPONIN I HIGH SENSITIVITY Routine 11/19/2021 9:42 AM MEDICAL IMAGING TECHNICIAN CBC AND DIFFERENTIAL STAT 11/19/2021 9:42 AM MEDICAL IMAGING TECHNICIAN COMPREHENSIVE METABOLIC PANEL STAT 11/19/2021 9:42 AM MEDICAL IMAGING TECHNICIAN EKG 12- LEAD ([facility]) STAT 11/19/2021 documented in this encounter Results * XR Chest 2 Views (11/19/2021 10:10 AM MEDICAL IMAGING TECHNICIAN) Anatomical Region Laterality Modality Chest Computed Radiogr aphy 11/19/2021 9:57 AM MEDICAL IMAGING TECHNICIAN Impressions 11/19/2021 10:20 AM MEDICAL IMAGING TECHNICIAN No acute cardiopulmonary findings. THIS IS AN ELECTRONICALLY VERIFIED FINAL REPORT 11/19/2021 10:17 AM - Electronically signed by Dayanna Durbin M.D. Narrative 11/19/2021 10:[address] [place] [address] DIAGNOSTIC IMAGING Name: EDILBERTO HAWLEY ??Ordering Phys: YUERICKEY Date of : 1955 ?Gender: M ??Accession Number: [id number] EXAM DESCRIPTION: XR CHEST 2 VIEWS REASON [...] Procedure Note Dayanna Durbin MD - 11/19/[address] [place] [address] DIAGNOSTIC IMAGING Name: EDILBERTO HAWLEYDONITA Ordering Phys: RICKEY BAILEY Adrian Date of : 1955 Gender: M Accession Number: [id number] EXAM DESCRIPTION: XR CHEST 2 VIEWS REASON [...] Troponin I High Sensitivity (11/19/2021 9:42 AM [facility]) Troponin I HIGH SENSITIVITY 6.8 0.0 - 60.4 pg/mL 11/19/2021 10:14 AM [facility] Serum BLOOD SPECIMEN / Unknown 11/19/2021 9:42 AM [facility] 11/19/2021 9:45 AM [facility] Rickey Bailey DO LAB BLOOD ORDERABLES Final Result [facility] [address] [place], [place] [phone] [facility] [address] [place] [address] * (ABNORMAL) Comprehensive metabolic panel (11/19/2021 9:42 AM [facility]) Pathologist [facility] Sodium 139 136 - 145 mmol/L 11/19/2021 10:09 AM [facility] Potassium 4.1 3.5 - 5.1 mmol/L 11/19/2021 10:09 AM [facility] Chloride 101 98 - 107 mmol/L 11/19/2021 10:09 AM [facility] CO2 28 21 - 32 mmol/L 11/19/2021 10:09 AM [facility] Glucose 120(H) 74 - 106 mg/dL 11/19/2021 10:09 AM [facility] BUN 13 7.0 - 18.0 mg/dL 11/19/2021 10:09 AM [facility] Creatinine 1.08 0.70 - 1.30 mg/dL 11/19/2021 10:09 AM [facility] Calcium 8.7 8.5 - 10.1 mg/dL 11/19/2021 10:09 AM [facility] Total Protein 7.0 6.4 - 8.2 g/dL 11/19/2021 10:09 AM [facility] Albumin 3.6 3.4 - 5.0 g/dL 11/19/2021 10:09 AM [facility] Bilirubin Total 0.7 0.2 - 1.0 mg/dL 11/19/2021 10:09 AM [facility] Alkaline Phosphatase 88 56 - 119 U/L 11/19/2021 10:09 AM [facility] AST 121(H) 15 - 37 U/L 11/19/2021 10:09 AM [facility] ALT 169(H) 16 - 63 U/L 11/19/2021 10:09 AM [facility] Anion Gap 10 8 - 16 mmol/L 11/19/2021 10:09 AM [facility] BUN/Creatinine Ratio 12.0 11/19/2021 10:09 AM [facility] Osmolality Calculated 289 275 - 295 mosm/kg 11/19/2021 10:09 AM [facility] Globulin 3.4 2.3 - 3.4 g/dL 11/19/2021 10:09 AM [facility] A/G Ratio 1.1 11/19/2021 10:09 AM [facility] Creatinine Based eGFR 70 mL/min/[1. 73_m2] 11/19/2021 10:09 AM [facility] Comment:GFR 60-90 Mild decre ased GFR. Serum 11/19/2021 9:42 AM MEDICAL IMAGING TECHNICIAN 11/19/2021 9:45 AM [facility] us iRckey Bailey DO LAB BLOOD ORDERABLES Final Result [facility] [address] [place], [place] [phone] [facility] [address] [place] [address] * (ABNORMAL) CBC and differential (11/19/2021 9:42 AM [facility]) WBC 6.97 4.00 - 11.00 10*3/uL 11/19/2021 9:58 AM [facility] RBC 4.57 4.50 - 6.50 10*6/uL 11/19/2021 9:58 AM [facility] HGB 14.5 13.8 - 18.0 g/dL 11/19/2021 9:58 AM [facility] HCT 42.9 40.0 - 54.0 % 11/19/2021 9:58 AM [facility] MCV 93.9 76 - 99 fL 11/19/2021 9:58 AM [facility] MCH 31.7 27.0 - 32.0 pg 11/19/2021 9:58 AM [facility] MCHC 33.8 30.0 - 35.0 g/dL 11/19/2021 9:58 AM [facility] Platelets 173 135 - 470 10*3/uL 11/19/2021 9:58 AM [facility] RDW-CV 12.7 11.0 - 17.0 % 11/19/2021 9:58 AM [facility] MPV 9.3 8.0 - 12.5 fL 11/19/2021 9:58 AM [facility] Differential Type AUTOMATED DIFFERENTIAL 11/19/2021 9:58 AM [facility] Neutrophil % 55.4 45.0 - 75.0 % 11/19/2021 9:58 AM [facility] Lymphocytes % 27.5 20.0 - 45.0 % 11/19/2021 9:58 AM [facility] Monocyte % 10.6(H) 0.0 - 10.0 % 11/19/2021 9:58 AM [facility] Eosinophils Relative % 5.5(H) 0.0 - 5.0 % 11/19/2021 9:58 AM [facility] Basophils % 0.6 0.0 - 2.0 % 11/19/2021 9:58 AM [facility] Immature Granulocytes% 0.4 0.0 - 1.6 % 11/19/2021 9:58 AM [facility] Neutrophils Absolute 3.86 2.00 - 7.90 10*3/uL 11/19/2021 9:58 AM [facility] Lymphocytes Absolute 1.92 1.00 - 4.00 10*3/uL 11/19/2021 9:58 AM [facility] Monos Absolute 0.74 0.00 - 0.80 10*3/uL 11/19/2021 9:58 AM [facility] Eosinophils Absolute Count 0.38 0.00 - 0.40 10*3/uL 11/19/2021 9:58 AM [facility] Basophils Absolute 0.04 0.00 - 0.10 10*3/uL 11/19/2021 9:58 AM [facility] Immature Granulocytes Absolute 0.03 0.0 - 0.20 10*3/uL 11/19/2021 9:58 AM [facility] Serum BLOOD SPECIMEN / Unknown 11/19/2021 9:42 AM [facility] 11/19/2021 9:45 AM MEDICAL IMAGING TECHNICIAN Rickey Bailey DO LAB BLOOD ORDERABLES Final Result [facility] [address] [place], [place] [phone] [facility] [address] [place] [address] * EKG 12- lead ([facility]) (11/19/2021) 11/19/2021 Rickey Bailey DO ECG ORDERABLES [...] documented as of this encounter Care Teams Theatre Director Relationship Specialty Start Date End Date Michell Trevizo MD [facility] [place] [address] PCP - General Internal Medicine 05/29/21 02/25/22 Lacey Perdue MD [address] [place] [phone] Referring Physician Infectious Diseases 06/28/18 documented as of this encounter
--- OUTSIDE RECORDS SUMMARY | 2024-11-23 10:14 | XMS_ITS | Encounter Summary ---
Author Organization [email or web address] Address [address] [place] [address] Care Team Providers Care Grinder Operator Tool Name Role Phone Lacey Perdue MD Unavailable [phone] Michell Trevizo MD Primary Care Provider [phone] Encounter Details Date Type Department Care Team (Late st Contact Info) Description 10/14/2021 10:15 AM [facility] Lab [facility] [address] [place] [address] Congestion of nasal sinus Social [...] COVID-19? No / Unsure 10/14/2021 8:23 AM P[employer] OUT CREW MEMBER documented as of this encounter Functional Status * Are you deaf or do you have serious difficulty hearing? Answer Date of Assessment Author No 10/25/2017 2:00 PM P[employer] OUT [employer] MEMBER Deonna Galvan ARNP * Are you blind or do you have serious difficulty seeing, even when wearing glasses? Answer Date of Assessment Author No 10/25/2017 2:00 PM Deonna Padilla, FOREST PATHOLOGY ASSOCIATE PROFESSOR * Do you have serious difficulty walking or climbing stairs? (5 years old or older) Answer Date of Assessment Author No 10/25/2017 2:00 PM Deonna Padilla, FOREST PATHOLOGY ASSOCIATE PROFESSOR * Do you have difficulty dressing or bathing? (5 years old or older) Answer Date of Assessment Author No 10/25/2017 2:00 PM Deonna Padilla, FOREST PATHOLOGY ASSOCIATE PROFESSOR * Because of a physical, mental, or emotional condition, do you have difficulty doing errands alone such as visiting a doctor's office or shopping? (15 years old or older) Answer Date of Assessment Author No 10/25/2017 2:00 PM Deonna Padilla, FOREST PATHOLOGY ASSOCIATE PROFESSOR documented as of this encounter Mental Status * Because of a physical, mental, or emotional condition, do you have serious difficulty concentrating, remembering, or making decisions? (5 years old or older) Answer Entry Date Author No 10/25/2017 2:00 PM Deonna Padilla, FOREST PATHOLOGY ASSOCIATE PROFESSOR documented in this encounter Progress Notes * [...] Michell Trevizo MD at 10/14/2021 5:04 PM P[employer] OUT CREW MEMBER H OUT CREW MEMBER H OUT CREW MEMBER Associated attestation - Michell Trevizo MD - 10/14/2021 5:04 PM P[employer] OUT [employer] MEMBER I was the collaborating physician for this [...] Comments CORONAVIRUS SARS-COV-2 Routine 10/14/2021 9:41 AM P[employer] MEMBER Congestion of nasal sinus documented in this encounter Results * (ABNORMAL) Coronavirus SARS-CoV-2 (10/14/2021 9:41 AM P[employer] OUT [employer] MEMBER) SARS-CoV-2 PCR POSITIVE( A) Negative [facility] Comment:The novel coronaviru s (Sars-CoV-2) target nucleic acids are detected. NASOPHARYNGEAL SWAB / Unknown 10/14/2021 9:41 AM P[employer] OUT [employer]W MEMBER 10/14/2021 11:17 AM [employer] MEMBER Comment:- Narrative [facility] - 10/14/2021 1:32 PM P[employer] OUT [employer]W MEMBER Indication Reason:->Suspected COVID-19 OP Testing is performed by the [employer] GeneXpert real-time, reverse cone tender polymerase chain reaction (RT-PCR) assay. Testing with [...] available to the physician. Testing performed at [facility], [address] [place] [address]. CLIA [id number] Phone [phone] Ext [phone] ??Welding Machine Operator Gas Metal Arc Shant Rivas MD Michell Trevizo MD MICROBIOLOGY - GENERAL ORDERAB LES Final Result [facility] [address] [phone] documented in this encounter Visit Diagnoses [...] as of this encounter Care Teams Grinder Operator Tool Relationship Specialty Start Date End Date Michell Trevizo MD [address] [place] [address] PCP - General Internal Medicine 05/29/21 02/25/22 Lacey Perdue MD [address] [phone] Referring Physician Infectious Diseases 06/28/18 documented as of this encounter
--- OUTSIDE RECORDS SUMMARY | 2024-11-23 10:14 | XMS_ITS | Encounter Summary ---
Author Organization [facility] Address [address] [place] [address] Care Team Providers Care Shooting Gallery Operator Name Role Phone Lacey Perdue MD Unavailable [phone] Jose Manuel Villegas MD Primary Care Provider [...] of Assessment Author No 10/25/2017 2:00 PM INSURANCE SPECIALIST Galvan, Am y S, COOKER OPERATOR * Do you have serious difficulty walking or climbing stairs? (5 years old or older) Answer Date of Assessment Author No 10/25/2017 2:00 PM JOHN Galvan Am y S, COOKER OPERATOR * Do you have difficulty dressing or bathing? (5 years old or older) Answer Date of Assessment Author No 10/25/2017 2:00 PM INSURANCE SPECIALIST Deonna Galvan y S, COOKER OPERATOR * Because of a physical, mental, or emotional condition, do you have difficulty doing errands alone such as visiting a doctor's office or shopping? (15 years old or older) Answer Date of Assessment Author No 10/25/2017 2:00 PM INSURANCE SPECIALIST Deonna Galvan y S, COOKER OPERATOR documented as of this encounter Mental Status * Because of a physical, mental, or emotional condition, do you have serious difficulty concentrating, remembering, or making decisions? (5 years old or older) Answer Entry Date Author No 10/25/2017 2:00 PM JOHN Galvan Am y S, COOKER OPERATOR documented in this encounter Plan of [...] documented as of this encounter Care Teams Shooting Gallery Operator Relationship Specialty Start Date End Date Jose Manuel Villegas MD [address] [place] [address] PCP - General [employer] Agent Team Member 05/12/22 11/25/22 Lacey Perdue MD [address] [phone] Referring Physician Infectious Diseases 06/28/18 documented as of this encounter
--- OUTSIDE RECORDS SUMMARY | 2024-11-23 10:14 | XMS_ITS | Encounter Summary ---
Author Organization [facility] Address [address] [place] [address] Care Team Providers Care Material Inspector Name Role Phone Lacey Perdue MD Unavailable Jose Manuel Villegas MD Primary Care Provider Reason for Visit * Reason Comments Medication Refill Encounter Details Date Type Department Care Team (Late st Contact Info) Description 07/13/2022 Refill [facility] [address] [place] [phone] Jose Manuel Villegas MD [address] [place] [address] Social History Tobacco Use Types Packs/Day [...] Author No 10/25/2017 2:00 PM Deonna Padilla, CAFETERIA MONITOR * Do you have serious difficulty walking or climbing stairs? (5 years old or older) Answer Date of Assessment Author No 10/25/2017 2:00 PM Deonna Padilla, CAFETERIA MONITOR * Do you have difficulty dressing or bathing? (5 years old or older) Answer Date of Assessment Author No 10/25/2017 2:00 PM Deonna Padilla, CAFETERIA MONITOR * Because of a physical, mental, or [...] as of this encounter Care Teams Material Inspector Relationship Specialty Start Date End Date Jose Manuel Villegas MD [address] [place] [address] PCP - General Lab Courier 05/12/22 11/25/22 Lacey Perdue MD [address] [phone] Referring Physician Infectious Diseases 06/28/18 documented as of this encounter
--- OUTSIDE RECORDS SUMMARY | 2024-11-23 10:14 | XMS_ITS | Encounter Summary ---
Author Organization [employer] Address [address] [place] [address] Care Team Providers Care Nuclear Instructor Name Role Phone Lacey Perdue MD Unavailable [phone] Michell Trevizo MD Primary Care Provider [phone] Encounter Details Date Type Department Care Team [...] COVID-19? No / Unsure 12/23/2021 11:28 AM MINE UTILITY OPERATOR documented as of this encounter Functional Status * Are you deaf or do you have serious difficulty hearing? Answer Date of Assessment Author No 10/25/2017 2:00 PM MINE UTILITY OPERATOR Deonna Galvan ARNP * Are you blind or do you have serious difficulty seeing, even when wearing glasses? Answer Date of Assessment Author No 10/25/2017 2:00 PM MINE UTILITY OPERATOR Galvan, Am y S, EXECUTIVE RECEPTIONIST * Do you have serious difficulty walking or climbing stairs? (5 years old or older) Answer Date of Assessment Author No 10/25/2017 2:00 PM MINE UTILITY OPERATOR Deonna Galvan, EXECUTIVE RECEPTIONIST * Do you have difficulty dressing or bathing? (5 years old or older) Answer Date of Assessment Author No 10/25/2017 2:00 PM MINE UTILITY OPERATOR Deonna Galvan S, EXECUTIVE RECEPTIONIST * Because of a physical, mental, or emotional condition, do you have difficulty doing errands alone such as visiting a doctor's office or shopping? (15 years old or older) Answer Date of Assessment Author No 10/25/2017 2:00 PM MINE UTILITY OPERATOR Deonna Galvan y S, EXECUTIVE RECEPTIONIST documented as of this encounter Mental Status * Because of a physical, mental, or emotional condition, do you have serious difficulty concentrating, remembering, or making decisions? (5 years old or older) Answer Entry Date Author No 10/25/2017 2:00 PM MINE UTILITY OPERATOR Deonna Galvan, EXECUTIVE RECEPTIONIST documented in this encounter Plan of [...] documented for the patient 12/23/2021 12:30 PM MINE UTILITY OPERATOR documented as of this encounter Care Teams Nuclear Instructor Relationship Specialty Start Date End Date Michell Trevizo MD [address] [place] [address] PCP - General Internal Medicine 05/29/21 02/25/22 Lacey Perdue MD [address] [phone] Referring Physician Infectious Diseases 06/28/18 documented as of this encounter
--- OUTSIDE RECORDS SUMMARY | 2024-11-23 10:14 | XMS_ITS | Encounter Summary ---
Author Organization [employer] Address [address] [place] [address] Care Team Providers Care Pharmacy Services Representative Name Role Phone Lacey Perdue MD Unavailable [phone] Michell Trevizo MD Primary Care Provider [phone] Reason for Visit * Reason Comments Medication Refill Encounter Details Date Type Department Care Team (Late st Contact Info) Description 12/31/2021 Refill [facility] Internal Medicine [address] [place] [phone] Michell Trevizo MD [address] [place] [address] Social History Tobacco Use Types Packs/Day [...] COVID-19? No / Unsure 12/23/2021 11:28 AM GRADUATE STUDIES DEAN documented as of this encounter Functional Status * Are you deaf or do you have serious difficulty hearing? Answer Date of Assessment Author No 10/25/2017 2:00 PM GRADUATE STUDIES DEAN Deonna Galvan S, TELECOM COORDINATOR * Are you blind or do you have serious difficulty seeing, even when wearing glasses? Answer Date of Assessment Author No 10/25/2017 2:00 PM GRADUATE STUDIES DEAN Deonna Galvan y S, TELECOM COORDINATOR * Do you have serious difficulty walking or climbing stairs? (5 years old or older) Answer Date of Assessment Author No 10/25/2017 2:00 PM GRADUATE STUDIES DEAN Deonna Galvan y S, TELECOM COORDINATOR * Do you have difficulty dressing or bathing? (5 years old or older) Answer Date of Assessment Author No 10/25/2017 2:00 PM JOHN Galvan Am y S, TELECOM COORDINATOR * Because of a physical, mental, or emotional condition, do you have difficulty doing errands alone such as visiting a doctor's office or shopping? (15 years old or older) Answer Date of Assessment Author No 10/25/2017 2:00 PM Deonna Padilla, TELECOM COORDINATOR documented as of this encounter Mental Status * Because of a physical, mental, or emotional condition, do you have serious difficulty concentrating, remembering, or making decisions? (5 years old or older) Answer Entry Date Author No 10/25/2017 2:00 PM Deonna Padilla, TELECOM COORDINATOR documented in this encounter Miscellaneous Notes * Telephone Encounter - Nasir Pena RN - 12/31/2021 3:57 PM CST Refill baclofen last filled 11/20. Last office visit 12/23 Med pended UATE STUDIES DEAN documented in this encounter Plan of Treatment [...] documented for the patient 12/23/2021 12:30 PM GRADUATE STUDIES DEAN documented as of this encounter Care Teams Pharmacy Services Representative Relationship Specialty Start Date End Date Michell Trevizo MD [address] [place] [address] PCP - General Internal Medicine 05/29/21 02/25/22 Lacey Perdue MD [address] [phone] Referring Physician Infectious Diseases 06/28/18 documented as of this encounter
--- OUTSIDE RECORDS SUMMARY | 2024-11-23 10:14 | XMS_ITS | Encounter Summary ---
Author Organization [employer] Address [address] [place] [address] Care Team Providers Care Probation Manager Name Role Phone Lacey Perdue MD Unavailable [phone] Michell Trevizo MD Primary Care Provider [phone] Encounter Details Date Type Department Care Team [...] COVID-19? No / Unsure 11/19/2021 9:18 AM ART DIRECTOR documented as of this encounter Functional Status * Are you deaf or do you have serious difficulty hearing? Answer Date of Assessment Author No 10/25/2017 2:00 PM ART DIRECTOR Deonna Galvan ARNP * Are you blind or do you have serious difficulty seeing, even when wearing glasses? Answer Date of Assessment Author No 10/25/2017 2:00 PM ART DIRECTOR Galvan, Am y S, ENVIRONMENTAL HEALTH AND SAFETY LEADER * Do you have serious difficulty walking or climbing stairs? (5 years old or older) Answer Date of Assessment Author No 10/25/2017 2:00 PM Deonna Padilla S, ENVIRONMENTAL HEALTH AND SAFETY LEADER * Do you have difficulty dressing or bathing? (5 years old or older) Answer Date of Assessment Author No 10/25/2017 2:00 PM ART DIRECTOR Deonna Galvan y S, ENVIRONMENTAL HEALTH AND SAFETY LEADER * Because of a physical, mental, or emotional condition, do you have difficulty doing errands alone such as visiting a doctor's office or shopping? (15 years old or older) Answer Date of Assessment Author No 10/25/2017 2:00 PM JOHN Galvan Am y S, ENVIRONMENTAL HEALTH AND SAFETY LEADER documented as of this encounter Mental Status * Because of a physical, mental, or emotional condition, do you have serious difficulty concentrating, remembering, or making decisions? (5 years old or older) Answer Entry Date Author No 10/25/2017 2:00 PM Deonna Padilla, ENVIRONMENTAL HEALTH AND SAFETY LEADER documented in this encounter Plan of Treatment [...] documented as of this encounter Care Teams Probation Manager Relationship Specialty Start Date End Date Michell Trevizo MD [address] [place] [address] PCP - General Internal Medicine 05/29/21 02/25/22 Lacey Perdue MD [address] [phone] Referring Physician Infectious Diseases 06/28/18 documented as of this encounter
--- OUTSIDE RECORDS SUMMARY | 2024-11-23 10:14 | XMS_ITS | Encounter Summary ---
Author Organization [employer] Address [address] [place] [address] Care Team Providers Care Cleaner And Polisher Name Role Phone Lacey Perdue MD Unavailable [phone] Michell Trevizo MD Primary Care Provider [phone] Reason for Visit * Reason Comments Follow-up 2 months Encounter Details Date Type Department Care Team (Latest Contact Info) Description 12/23/2021 11:45 AM MANAGER UNDERWRITING Office Visit [facility] Internal Medicine [address] [place] [address] Michell Trevizo MD [address] [place] [address] Encounter for long-term current use of [...] COVID-19? No / Unsure 12/23/2021 11:28 AM MANAGER UNDERWRITING documented as of this encounter Last Filed Vital Signs Vital Sign Reading Time Taken Comments Blood Pressure 132/78 12/23/2021 11:44 AM MANAGER UNDERWRITING Pulse 84 12/23/2021 11:44 AM MANAGER UNDERWRITING Temperature - - Respiratory Rate - - Oxygen Saturation - - Inhaled Oxygen Concentration - - Weight 92.5 kg (204 lb) 12/23/2021 11:44 AM MANAGER UNDERWRITING Height - - Body Mass Index 28.45 11/19/2021 9:15 AM MANAGER UNDERWRITING documented in this encounter Functional Status * Are you deaf or do you have serious difficulty hearing? Answer Date of Assessment Author No 10/25/2017 2:00 PM MANAGER UNDERWRITING Deonna Galvan y S, EDGE POLISHER * Are you blind or do you have serious difficulty seeing, even when wearing glasses? Answer Date of Assessment Author No 10/25/2017 2:00 PM MANAGER UNDERWRITING Deonna Galvan y S, EDGE POLISHER * Do you have serious difficulty walking or climbing stairs? (5 years old or older) Answer Date of Assessment Author No 10/25/2017 2:00 PM MANAGER UNDERWRITING Deonna Galvan y S, EDGE POLISHER * Do you have difficulty dressing or bathing? (5 years old or older) Answer Date of Assessment Author No 10/25/2017 2:00 PM MANAGER UNDERWRITING Cole Am y S, EDGE POLISHER * Because of a physical, mental, or emotional condition, do you have difficulty doing errands alone such as visiting a doctor's office or shopping? (15 years old or older) Answer Date of Assessment Author No 10/25/2017 2:00 PM MANAGER UNDERWRITING Deonna Galvan y S, EDGE POLISHER documented as of this encounter Mental Status * Because of a physical, mental, or emotional condition, do you have serious difficulty concentrating, remembering, or making decisions? (5 years old or older) Answer Entry Date Author No 10/25/2017 2:00 PM MANAGER UNDERWRITING Deonna Galvan y S, EDGE POLISHER documented in this encounter Patient Instructions * Patient Instructions* Michell Trevizo MD - 12/23/2021 11:45 AM MANAGER UNDERWRITING Labwork today and urine 6 month follow up GER UNDERWRITING documented in this encounter Progress Notes * Meme Chen LPN - 12/23/2021 11:45 AM CST There is no height or weight on file to calculate BMI. Se received nutritional counseling in the following manner: reassuring about nutrition Se received physical activity counseling in the following manner: reassuring about exercise GER UNDERWRITING * Michell Trevizo MD - 12/23/2021 11:45 AM CST General Internal Medicine Patient Note [facility] CC: Chief Complaint Patient presents [...] Past Medical/Surgical/Family/Social History: Reviewed and updated in [facility] History tab Medications: Reviewed and updated in [facility] Medications tab Current Outpatient Medications Medication [...] MD Internal Medicine Sleep Medicine Obesity Medicine GER UNDERWRITING documented in this encounter Plan of Treatment Not on file documented as of this encounter Goals Goal Patient Goal Type Associated Problems Recent Progress Patient-Stated? Author Blood Pressure < 140/90 Blood Pressure 134/86(2022 2:25 PM CDT) No Leonard Jasso APRN documented as of this encounter Results * (ABNORMAL) Pain Management Profile 1 With Confirm, With D/L, Urine (12/23/2021 1:07 PM MANAGER UNDERWRITING) [facility] medMATCH Summary SEE NOTE [facility] Comment: ?Prescribed ?Prescribed ?Not Prescribed ?Consistent ?Inconsistent ?Inconsistent ?Oxycodone ? [[place]] Prescribed Drug 1 Oxycodone [facility] Comment: [[place]] Testing performed at: [facility] [employer], [address] [facility], [place], [address], Oxyacetylene Welder: Osvaldo Rios D.O., MPH Amphetamines NEGATIVE <500 ng/mL [facility] Comment:[CB] Barbiturates NEGATIVE <300 ng/mL [facility] Comment:[CB] Benzodiazepines NEGATIVE <100 ng/mL [facility] Comment:[CB] Cocaine Metabolite NEGATIVE <150 ng/mL [facility] Comment:[CB] Marijuana Metabolite NEGATIVE <20 ng/mL [facility] Comment:[CB] Methadone NEGATIVE <100 ng/mL [facility] Comment:[CB] Opiates NEGATIVE CONFIRMED <100 ng/mL [facility] Comment:[CB] Codeine NEGATIVE <50 ng/mL [facility] Comment:[CB] Hydrocodone NEGATIVE <50 ng/mL [facility] Comment:[CB] Hydromorphone NEGATIVE <50 ng/mL [facility] Comment:[CB] Morphine UR NEGATIVE <50 ng/mL [facility] Comment:[CB] Norhydrocodone NEGATIVE <50 ng/mL [facility] Comment:[CB] Opiates Comments SEE NOTE [facility] Comment: See LDT Notes [CB] Oxycodone POSITIVE(A) <100 ng/mL [facility] Comment:[CB] [place], [place] >[address](H) <50 ng/mL [facility] Comment:[CB] MEDMATCH NOROXYCODONE CONSISTENT [facility] Comment:[CB] Oxycodone >25448(H) <50 ng/mL [facility] Comment:[CB] medMATCH Oxycodone CONSISTENT [facility] Comment:[CB] Oxymorphone >14732(H) <50 ng/mL [facility] Comment:[CB] medMATCH Oxymorphone CONSISTENT [facility] Comment:[CB] Oxycodone Comments SEE NOTE Q [facility] Comment: See Oxycodone Notes, LDT Notes [CB] Phencyclidine NEGATIVE <25 ng/mL [facility] Comment:[CB] Creatinine Urine >300.0 > or = 20.0 mg/dL [facility] Comment:[CB] pH 5.9 4.5 - 9.0 [facility] Comment:[CB] Oxidant NEGATIVE <200 mcg/mL [facility] Comment:[CB] Comments: SEE NOTE [facility] Comment: This drug testing is [...] analytical performance characteristics have been determined by [employer] It has not been cleared or approved by the FDA. This assay has been validated pursuant to the CLIA regulations and is used for clinical purposes. medAugmentTCH(R) enables providers to identify if drug use is consistent or inconsistent with a corresponding prescribed medication(s) list. Healthcare Providers needing Interpretation assistance, please contact us at [phone] ( ) M-F, 8am to 10pm EST [[place]] Urine 12/23/2021 1:07 PM MANAGER UNDERWRITING 12/24/2021 3:36 AM MANAGER UNDERWRITING Narrative [facility] - 12/28/2021 2:40 PM MANAGER UNDERWRITING Testing performed at: [place], [employer], [address] [place] [address], [phone], Oxyacetylene Welder: Osvaldo Rios D.O., MPH us Michell Trevizo MD URINE ORDERABLES Final Result [facility] [address] [phone] * TSH (12/23/2021 12:55 PM MANAGER UNDERWRITING) TSH 1.541 0.350 - 4.940 uIU/mL [facility] Blood BLOOD SPECIMEN / Unknown 12/23/2021 12:55 PM MANAGER UNDERWRITING 12/23/2021 1:07 PM MANAGER UNDERWRITING Comment:- Narrative [facility] - 12/24/2021 8:37 AM MANAGER UNDERWRITING Testing performed at [facility], [address] [place] [address]. CLIA [id number] Phone [phone] Ext [phone] ??Oxyacetylene Welder Shant Rivas MD us Michell Trevizo MD LAB BLOOD ORDERABLES Edited Re sult - Final [facility] [address] [place] [address], [facility] [phone] * (ABNORMAL) Lipid panel (12/23/2021 12:55 PM MANAGER UNDERWRITING) Cholesterol 169 0 - 200 mg/dL [facility] Comment:Cholesterol preferre d <200 mg/dL. Clinical correlation is essential. Triglycerides 163 0 - 200 mg/dL [facility] HDL Cholesterol 37(L) >60 mg/dL [facility] Comment:Low HDL cholesterol, (Major Risk Factor for CHD) LDL, Calculated 99.4 mg/dL [facility] Comment: <100 ?Optimal 100-129 ? Near Optimal/Above Optimal 130-159 ? Borderline High 160-189 ? High >or =190 ?Very High Cholesterol/HDL Ratio 4.6 [facility] Comment:HDL:Chol ratio Milmay ge Risk 1:4.4-1:7.0, Clinical Correlation essential. Blood 12/23/2021 12:5 5 PM MANAGER UNDERWRITING 12/23/2021 1:07 PM MANAGER UNDERWRITING Comment:- Narrative [facility] - 12/24/2021 8:37 AM MANAGER UNDERWRITING Testing performed at [facility], [address] [place] [address]. CLIA [id number] Phone [phone] Ext [phone] ??Oxyacetylene Welder Shant Rivas MD us Michell Trevizo MD LAB BLOOD ORDERABLES Edited Re sult - Final [facility] [address] [place] [address], [facility] [phone] * CBC auto differential (12/23/2021 12:55 PM MANAGER UNDERWRITING) WBC 5.9 3.1 - 11.0 x10^3/uL [facility] RBC 5.06 4.29 - 5.55 x10^6/uL [facility] HGB 16.1 13.4 - 16.9 g/dL [facility] HCT 46.7 38.0 - 50.0 % [facility] MCV 92.3 82.0 - 98.0 fL [facility] MCH 31.8 27.2 - 33.3 pg [facility] MCHC 34.5 32.0 - 36.0 g/dL [facility] RDW-CV 12.1 11.4 - 14.2 % [facility] SD-RDW 41.4 36.0 - 47.0 fL [facility] Platelets 201 147 - 370 x10^3/uL [facility] MPV 10.4 9.1 - 12.1 fL [facility] NE% 49.9 42.0 - 76.0 % [facility] %LYMPH 35.1 13.5 - 48.0 % [facility] %MONO 10.7 3.5 - 14.0 % [facility] % Eosinophils 3.6 0.0 - 7.0 % [facility] % Basophils 0.5 0.0 - 1.5 % [facility] Imm Gran Relative 0.2 0.0 - 1.0 % [facility] NE# 3.0 1.2 - 7.3 x10^3/uL [facility] Lymphs # 2.1 0.7 - 3.5 x10^3/uL [facility] Delta# 0.6 0.2 - 0.9 x10^3/uL [facility] Eosinophil # 0.2 0.0 - 0.5 x10^3/uL [facility] Baso# 0.0 0.0 - 0.1 x10^3/uL [facility] Imm Gran Absolute 0.01 0.00 - 0.10 x10^3/uL [facility] NRBC % 0.00 0.00 - 0.10 /100 WBC [facility] Blood 12/23/2021 12:5 5 PM MANAGER UNDERWRITING 12/23/2021 1:07 PM MANAGER UNDERWRITING Comment:- Narrative [facility] - 12/23/2021 1:27 PM MANAGER UNDERWRITING Testing performed at [facility], [address] [place] [address]. CLIA [id number] Phone [phone] Ext [phone] ??Oxyacetylene Welder Shant Rivas MD us Michell Trevizo MD LAB BLOOD ORDERABLES Final Res ult [facility] [address] [place] [address] [phone] * (ABNORMAL) Comprehensive metabolic panel (12/23/2021 12:55 PM MANAGER UNDERWRITING) Glucose 161(H) 60 - 100 mg/dL [facility] Comment: Fasting Plasma Glucose (FPG) ?<100 MG/DL Impaired Fasting Glucose (IFG) ? 100-125 MG/DL Provisional Diagnosis of Diabetes Mellitus ?? > or = 126 MG/DL (Diagnosis Must Be Confirmed) BUN 15 8 - 26 mg/dL [facility] Creatinine 0.85 0.70 - 1.40 mg/dL [facility] Glomerular Filtration Rate Estimate 95 >80 mL/min/1.7 3m2 [facility] Calcium 8.8 8.4 - 10.2 mg/dL [facility] Sodium 135(L) 136 - 145 mmol/L [facility] Potassium 4.4 3.4 - 4.9 mmol/L [facility] Chloride 106 99 - 111 mmol/L [facility] CO2 24.8 21.0 - 32.0 mmol/L [facility] Albumin 3.8 3.5 - 5.0 g/dL [facility] Total Protein 7.5 6.1 - 8.0 g/dL [facility] Bilirubin Total 0.6 0.2 - 1.2 mg/dL [facility] Alkaline Phosphatase 77 40 - 150 U/L [facility] AST 75(H) 5 - 34 U/L [facility] ALT 99(H) 0 - 55 u/L [facility] Blood 12/23/2021 12:5 5 PM MANAGER UNDERWRITING 12/23/2021 1:07 PM MANAGER UNDERWRITING Comment:- Narrative [facility] - 12/24/2021 8:37 AM MANAGER UNDERWRITING Testing performed at [facility], [address] [place] [address]. CLIA [id number] Phone [phone] Ext [phone] ??Oxyacetylene Welder Shant Rivas MD Michell Trevizo MD LAB BLOOD ORDERABLES Edited Re sult - Final [facility] [address] [place] [address] [phone] documented in this encounter Visit Diagnoses [...] for the patient 12/23/2021 12:30 PM MANAGER UNDERWRITING documented as of this encounter Care Teams Cleaner And Polisher Relationship Specialty Start Date End Date Michell Trevizo MD [address] [place] [address] PCP - General Internal Medicine 05/29/21 02/25/22 Lacey Perdue MD [address] [phone] Referring Physician Infectious Diseases 06/28/18 documented as of this encounter
--- OUTSIDE RECORDS SUMMARY | 2024-11-23 10:14 | XMS_ITS | Encounter Summary ---
Author Organization [employer] Address [address] [place] [address] Care Team Providers Care Engineering Faculty Member Name Role Phone Lacey Perdue MD Unavailable [phone] Jose Manuel Villegas MD Primary Care Provider Reason for Referral * Referral (Routine) - Closed Specialty Diagnoses / Procedures Referred By Contac t Referred To Contact Rheumatology Diagnoses Arthritis Jose Manuel Villegas MD [address] [place] [address] Phone: tel: fax: [facility] [address] [place] [address] Phone: tel: fax: Referral ID Status Reason Start Date Expiration Date V isits Requested Visits Authorized [id number] Closed Specialty Services Required 06/10/2022 12/12/2023 1 1 Encounter Details Date Type Department Care Team (Late st Contact Info) Description 06/10/2022 Orders Only [facility] [address] [place] [phone] Penny Carey RN [address] [place] [address] Arthritis (Primary Dx) Social History [...] documented as of this encounter Care Teams Engineering Faculty Member Relationship Specialty Start Date End Date Jose Manuel Villegas MD [facility] [place] [address] PCP - General Lock And Dam Equipment Repairer 05/12/22 11/25/22 Lacey Perdue MD [address] [phone] Referring Physician Infectious Diseases 06/28/18 documented as of this encounter
--- OUTSIDE RECORDS SUMMARY | 2024-11-23 10:14 | XMS_ITS | Encounter Summary ---
Author Organization [employer] Address [address] [place] [address] Care Team Providers Care Summer Sessions Director Name Role Phone Lacey Perdue MD Unavailable Michell Trevizo MD Primary Care Provider [phone] Encounter Details Date Type Department Care Team (Late st Contact Info) Description 12/18/2021 Documentation [facility] ENT [address] [place] [address] Carson Wolff MD [address] [place] [address] Social History Tobacco Use Types [...] COVID-19? No / Unsure 12/15/2021 1:26 PM ORTHOTIC AND PROSTHETIC TECHNICIAN documented as of this encounter Functional Status * Are you deaf or do you have serious difficulty hearing? Answer Date of Assessment Author No 10/25/2017 2:00 PM ORTHOTIC AND PROSTHETIC TECHNICIAN Galvan, Am y S, MANAGER RENEWABLE ENERGY * Are you blind or do you have serious difficulty seeing, even when wearing glasses? Answer Date of Assessment Author No 10/25/2017 2:00 PM ORTHOTIC AND PROSTHETIC TECHNICIAN Galvan, Am y S, MANAGER RENEWABLE ENERGY * Do you have serious difficulty walking or climbing stairs? (5 years old or older) Answer Date of Assessment Author No 10/25/2017 2:00 PM ORTHOTIC AND PROSTHETIC TECHNICIAN Galvan, Am y S, MANAGER RENEWABLE ENERGY * Do you have difficulty dressing or bathing? (5 years old or older) Answer Date of Assessment Author No 10/25/2017 2:00 PM ORTHOTIC AND PROSTHETIC TECHNICIAN Galvan, Am y S, MANAGER RENEWABLE ENERGY * Because of a physical, mental, or emotional condition, do you have difficulty doing errands alone such as visiting a doctor's office or shopping? (15 years old or older) Answer Date of Assessment Author No 10/25/2017 2:00 PM ORTHOTIC AND PROSTHETIC TECHNICIAN Galvan, Am y S, MANAGER RENEWABLE ENERGY documented as of this encounter Mental Status * Because of a physical, mental, or emotional condition, do you have serious difficulty concentrating, remembering, or making decisions? (5 years old or older) Answer Entry Date Author No 10/25/2017 2:00 PM ORTHOTIC AND PROSTHETIC TECHNICIAN Galvan, Am y S, MANAGER RENEWABLE ENERGY documented in this encounter Progress Notes * Carson Wolff MD - 12/18/2021 3:35 PM CST Images from the original note were not included. Pathology report from left nasal biopsy (12/15/2021): Inflammatory polyp I will ask my office to contact patient. I would like to start him on twice daily Mometasone sinus rinses for 3 months. Carson Wolff M.D., Ph.D. Pediatric and General Otolaryngology [facility] OTIC AND PROSTHETIC TECHNICIAN documented in this encounter Plan of Treatment Not on file documented as of this encounter Goals Goal Patient Goal Type Associated Problems Recent Progress Patient-Stated? Author Blood Pressure < 140/90 Blood Pressure 134/86(2022 2:25 PM CDT) No Wasielewski, Leonard W, AXLE AND FRAME MECHANIC documented as of this encounter Visit Diagnoses Not on filedocumented in this encounter Additional Health Concerns Assessment Noted Time A fall risk assessment has been complete d for the patient 08/27/2021 11:36 AM CDT A Body Mass Index follow-up plan has been documented for the patient 06/30/2021 12:12 PM CDT documented as of this encounter Care Teams Summer Sessions Director Relationship Specialty Start Date End Date Michell Trevizo MD [address] [place] [address] PCP - General Internal Medicine 05/29/21 02/25/22 Lacey Perdue MD [address] [place] [phone] Referring Physician Infectious Diseases 06/28/18 documented as of this encounter
--- OUTSIDE RECORDS SUMMARY | 2024-11-23 10:14 | XMS_ITS | Encounter Summary ---
Author Organization [employer] Address [address] [place] [address] Care Team Providers Care Visual Designer Name Role Phone Lacey Perdue MD Unavailable [phone] Michell Trevizo MD Primary Care Provider [phone] Encounter Details Date Type Department Care Team [...] of Assessment Author No 10/25/2017 2:00 PM LAPELER Galvan, Am y S, BUILDING SERVICE WORKER * Do you have serious difficulty walking or climbing stairs? (5 years old or older) Answer Date of Assessment Author No 10/25/2017 2:00 PM Deonna Padilla S, BUILDING SERVICE WORKER * Do you have difficulty dressing or bathing? (5 years old or older) Answer Date of Assessment Author No 10/25/2017 2:00 PM JOHN Galvan Am y S, BUILDING SERVICE WORKER * Because of a physical, mental, or emotional condition, do you have difficulty doing errands alone such as visiting a doctor's office or shopping? (15 years old or older) Answer Date of Assessment Author No 10/25/2017 2:00 PM JOHN Galvan Am y S, BUILDING SERVICE WORKER documented as of this encounter Mental Status * Because of a physical, mental, or emotional condition, do you have serious difficulty concentrating, remembering, or making decisions? (5 years old or older) Answer Entry Date Author No 10/25/2017 2:00 PM Deonna Padilla S, BUILDING SERVICE WORKER documented in this encounter Plan of [...] documented as of this encounter Care Teams Visual Designer Relationship Specialty Start Date End Date Michell Trevizo MD [facility] [place] [address] PCP - General Internal Medicine 05/29/21 02/25/22 Lacey Perdue MD [address] [phone] Referring Physician Infectious Diseases 06/28/18 documented as of this encounter
--- OUTSIDE RECORDS SUMMARY | 2024-11-23 10:14 | XMS_ITS | Encounter Summary ---
Author Organization [employer] Address [address] [place] [address] Care Team Providers Care Beater Operator Name Role Phone Lacey Perdue MD Unavailable [phone] Michell Trevizo MD Primary Care Provider [phone] Reason for Referral * Allergy Testing (Routine) - Closed Specialty Diagnoses / Procedures Referred By Contac t Referred To Contact Allergy Diagnoses Recurrent sinusitis Chronic maxillary sinusitis S/P sinus surgery Carson Wolff MD [address] [place] [phone] Phone: tel: fax: Referral ID Status Reason Start Date Expiration Date V isits Requested Visits Authorized [id number] Closed Specialty Services Required 10/14/2021 04/17/2023 1 1 ER OF CREDIT CLERK Reason for Visit * Reason Comments Sinus Problem Encounter Details Date Type Department Care Team (Late st Contact Info) Description 10/14/2021 10:30 AM LETTER OF CREDIT CLERK Office Visit [facility] ENT [address] [place] [phone] Carson Wolff MD [address] [place] [phone] Chronic maxillary sinusitis (Primary Dx); Recurrent [...] COVID-19? No / Unsure 10/14/2021 8:23 AM LETTER OF CREDIT CLERK documented as of this encounter Functional Status * Are you deaf or do you have serious difficulty hearing? Answer Date of Assessment Author No 10/25/2017 2:00 PM LETTER OF CREDIT CLERK Deonna Galvan, JIG BORER * Are you blind or do you have serious difficulty seeing, even when wearing glasses? Answer Date of Assessment Author No 10/25/2017 2:00 PM Deonna Padilla, JIG BORER * Do you have serious difficulty walking or climbing stairs? (5 years old or older) Answer Date of Assessment Author No 10/25/2017 2:00 PM Deonna Padilla, JIG BORER * Do you have difficulty dressing or bathing? (5 years old or older) Answer Date of Assessment Author No 10/25/2017 2:00 PM Deonna Padilla, JIG BORER * Because of a physical, mental, or emotional condition, do you have difficulty doing errands alone such as visiting a doctor's office or shopping? (15 years old or older) Answer Date of Assessment Author No 10/25/2017 2:00 PM Deonna Pdailla, JIG BORER documented as of this encounter Mental Status [...] of left rotator cuff ??? Hyperlipidemia ??? rn long term care current use of opiate [...] Ph.D. Otolaryngology - Head and Neck Surgery [facility] ER OF CREDIT CLERK documented in this encounter Plan of Treatment [...] * Other Source Culture (10/14/2021 12:44 PM LETTER OF CREDIT CLERK) Other Source Culture Microbiology results [facility] Comment: SOURCE Right Maxillary Sinus [...] SINUS STRUCTURE / Unknown 10/14/2021 12:44 PM LETTER OF CREDIT CLERK 10/14/2021 12:45 PM LETTER OF CREDIT CLERK Comment:- Narrative [facility] - 10/18/2021 10:15 AM LETTER OF CREDIT CLERK Right Maxillary Sinus Testing performed at [facility], [address] [place] [address]. CLIA [id number] Phone [phone] ext [phone] ??Safety Officer Shant Rivas MD us Carson Wolff MD MICROBIOLOGY - GENERAL OR DERABLES Final Result Performing Organization Address [facility] Co de Phone Number [facility] [address] [place] [address] [phone] * Other Source Culture (10/14/2021 12:44 PM LETTER OF CREDIT CLERK) Other Source Culture Microbiology results [facility] Comment: SOURCE Maxillary Sinus LEFT QUANTITATION FEW RESULT COAGULASE NEGATIVE STAPHYLOCOCCUS, IDENTIFICATION ONLY ??(Isolate 1) MAXILLARY SINUS STRUCTURE / Unknown 10/14/2021 12:44 PM LETTER OF CREDIT CLERK 10/14/2021 12:45 PM LETTER OF CREDIT CLERK Comment:- Narrative [facility] - 10/17/2021 11:13 AM LETTER OF CREDIT CLERK Left Maxillary Sinus Testing performed at [facility], [address] [place] [address]. CLIA [id number] Phone [phone] Ext [phone] ??Safety Officer Shant Rivas MD Carson Wolff MD MICROBIOLOGY - GENERAL OR DERABLES Final Result Performing Organization Address [facility] Co de Phone Number [facility] [address] [place] [address] [phone] documented in this encounter Visit Diagnoses [...] documented as of this encounter Care Teams Beater Operator Relationship Specialty Start Date End Date Michell Trevizo MD [address] [place] [address] PCP - General Internal Medicine 05/29/21 02/25/22 Lacey Perdue MD [address] [place] [phone] Referring Physician Infectious Diseases 06/28/18 documented as of this encounter
--- OUTSIDE RECORDS SUMMARY | 2024-11-23 10:14 | XMS_ITS | Encounter Summary ---
Author Organization [employer] Address [address] [place] [address] Care Team Providers Care Tattoo Designer Name Role Phone Lacey Perdue MD Unavailable [phone] Michell Trevizo MD Primary Care Provider [phone] Reason for Visit * Reason Onset Date Comments Results 12/18/2021 Left Nasal Biops y taken on 12/15/2021 Encounter Details Date Type Department Care Team (Late st Contact Info) Description 12/18/2021 Telephone [facility] ENT [address] [place] [address] Sandy Galindo, LEIGHTON [address] [place] [address] Results (Left Nasal Biopsy taken [...] COVID-19? No / Unsure 12/15/2021 1:26 PM AIR DEFENSE CONTROL OFFICER documented as of this encounter Functional Status * Are you deaf or do you have serious difficulty hearing? Answer Date of Assessment Author No 10/25/2017 2:00 PM AIR DEFENSE CONTROL OFFICER Cole Am y S, BOOTMAKER HAND * Are you blind or do you have serious difficulty seeing, even when wearing glasses? Answer Date of Assessment Author No 10/25/2017 2:00 PM AIR DEFENSE CONTROL OFFICER Galvan, Am y S, BOOTMAKER HAND * Do you have serious difficulty walking or climbing stairs? (5 years old or older) Answer Date of Assessment Author No 10/25/2017 2:00 PM AIR DEFENSE CONTROL OFFICER Galvan, Am y S, BOOTMAKER HAND * Do you have difficulty dressing or bathing? (5 years old or older) Answer Date of Assessment Author No 10/25/2017 2:00 PM AIR DEFENSE CONTROL OFFICER Cole Am y S, BOOTMAKER HAND * Because of a physical, mental, or emotional condition, do you have difficulty doing errands alone such as visiting a doctor's office or shopping? (15 years old or older) Answer Date of Assessment Author No 10/25/2017 2:00 PM AIR DEFENSE CONTROL OFFICER Cole Am y S, BOOTMAKER HAND documented as of this encounter Mental Status * Because of a physical, mental, or emotional condition, do you have serious difficulty concentrating, remembering, or making decisions? (5 years old or older) Answer Entry Date Author No 10/25/2017 2:00 PM AIR DEFENSE CONTROL OFFICER Cole Am y S, BOOTMAKER HAND documented in this encounter Miscellaneous Notes * Telephone Encounter - Sandy Galindo LPN - 12/18/2021 3:52 PM CST Spoke to Edilberto and gave him results. Let him know I would be sending in order for Mometasone through [facility]. He vpu. DEFENSE CONTROL OFFICER * Telephone Encounter - Sandy Galindo LPN - 12/18/2021 3:50 PM CST ----- Message from [place] Wolff MD sent at 12/18/2021 3:39 PM AIR DEFENSE CONTROL OFFICER ----- Please contact patient and tell him that biopsy was consistent with benign nasal polyp. Because he has polyps, I would like him to start adding Mometasone steroid to the sinus rinses twice daily for the next 3 months (mail-order pharmacy). Thanks! DEFENSE CONTROL OFFICER documented in this encounter Plan of [...] as of this encounter Care Teams Tattoo Designer Relationship Specialty Start Date End Date Michell Trevizo MD [address] [place], [place] [phone] PCP - General Internal Medicine 05/29/21 02/25/22 Lacey Perdue MD [address] [place] [phone] Referring Physician Infectious Diseases 06/28/18 documented as of this encounter
--- OUTSIDE RECORDS SUMMARY | 2024-11-23 10:14 | XMS_ITS | Encounter Summary ---
Author Organization [employer] Address [address] [place] [address] Care Team Providers Care Mechanical Inspector Name Role Phone Lacey Perdue MD Unavailable [phone] Michell Trevizo MD Primary Care Provider [phone] Reason for Visit * Reason Comments Medication Refill Encounter Details Date Type Department Care Team (Late st Contact Info) Description 10/21/2021 Refill [facility] Internal Medicine [address] [place] [phone] Michell Trevizo MD [address] [place] [address] Social History Tobacco Use Types Packs/Day [...] COVID-19? No / Unsure 10/14/2021 8:23 AM REPORTING PROCESS CONSULTANT documented as of this encounter Functional Status * Are you deaf or do you have serious difficulty hearing? Answer Date of Assessment Author No 10/25/2017 2:00 PM Deonna Padilla, ASSISTANT HVAC MECHANIC * Are you blind or do you have serious difficulty seeing, even when wearing glasses? Answer Date of Assessment Author No 10/25/2017 2:00 PM Deonna Padilla S, ASSISTANT HVAC MECHANIC * Do you have serious difficulty walking or climbing stairs? (5 years old or older) Answer Date of Assessment Author No 10/25/2017 2:00 PM Deonna Padilla S, ASSISTANT HVAC MECHANIC * Do you have difficulty dressing or bathing? (5 years old or older) Answer Date of Assessment Author No 10/25/2017 2:00 PM Deonna Padilla, ASSISTANT HVAC MECHANIC * Because of a physical, mental, or emotional condition, do you have difficulty doing errands alone such as visiting a doctor's office or shopping? (15 years old or older) Answer Date of Assessment Author No 10/25/2017 2:00 PM Deonna Padilla, ASSISTANT HVAC MECHANIC documented as of this encounter Mental Status * Because of a physical, mental, or emotional condition, do you have serious difficulty concentrating, remembering, or making decisions? (5 years old or older) Answer Entry Date Author No 10/25/2017 2:00 PM Deonna Padilla, ASSISTANT HVAC MECHANIC documented in this encounter Plan of [...] documented as of this encounter Care Teams Mechanical Inspector Relationship Specialty Start Date End Date Michell Trevizo MD [address] [place] [address] PCP - General Internal Medicine 05/29/21 02/25/22 Lacey Perdue MD [address] [phone] Referring Physician Infectious Diseases 06/28/18 documented as of this encounter
--- OUTSIDE RECORDS SUMMARY | 2024-11-23 10:14 | XMS_ITS | Encounter Summary ---
Author Organization [employer] Address [address] [place] [address] Care Team Providers Care Culinary Assistant Name Role Phone Lacey Perdue MD Unavailable [phone] Michell Trevizo MD Primary Care Provider [phone] Reason for Visit * Reason Comments Medication Refill Encounter Details Date Type Department Care Team (Late st Contact Info) Description 11/19/2021 Refill [facility] Internal Medicine [address] [place] [phone] Michell Trevizo MD [address] [place] [address] Social History Tobacco Use Types Packs/Day [...] COVID-19? No / Unsure 11/19/2021 9:18 AM WINE MERCHANT documented as of this encounter Functional Status * Are you deaf or do you have serious difficulty hearing? Answer Date of Assessment Author No 10/25/2017 2:00 PM Deonna Padilla, METAL OR WOOD BLOCKER * Are you blind or do you have serious difficulty seeing, even when wearing glasses? Answer Date of Assessment Author No 10/25/2017 2:00 PM Deonna Padilla S, METAL OR WOOD BLOCKER * Do you have serious difficulty walking or climbing stairs? (5 years old or older) Answer Date of Assessment Author No 10/25/2017 2:00 PM Deonna Padilla S, METAL OR WOOD BLOCKER * Do you have difficulty dressing or bathing? (5 years old or older) Answer Date of Assessment Author No 10/25/2017 2:00 PM Deonna Padilla, METAL OR WOOD BLOCKER * Because of a physical, mental, or emotional condition, do you have difficulty doing errands alone such as visiting a doctor's office or shopping? (15 years old or older) Answer Date of Assessment Author No 10/25/2017 2:00 PM Deonna Padilla, METAL OR WOOD BLOCKER documented as of this encounter Mental Status * Because of a physical, mental, or emotional condition, do you have serious difficulty concentrating, remembering, or making decisions? (5 years old or older) Answer Entry Date Author No 10/25/2017 2:00 PM Deonna Padilla, METAL OR WOOD BLOCKER documented in this encounter Plan of Treatment [...] documented as of this encounter Care Teams Culinary Assistant Relationship Specialty Start Date End Date Michell Trevizo MD [address] [place] [address] PCP - General Internal Medicine 05/29/21 02/25/22 Lacey Perdue MD [address] [phone] Referring Physician Infectious Diseases 06/28/18 documented as of this encounter
--- OUTSIDE RECORDS SUMMARY | 2024-11-23 10:14 | XMS_ITS | Encounter Summary ---
Author Organization [email or web address] Address [address] [place] [address] Care Team Providers Care Resource Development Manager Name Role Phone Lacey Perdue MD Unavailable Jose Manuel Villegas MD Primary Care Provider Reason for Visit * Reason Comments Follow-up 2 week follow up Encounter Details Date Type Department Care Team (Latest Contact Info) Description 06/09/2022 10:45 AM CDT Office Visit [address] [phone] Jose Manuel Villegas MD [address] [place] [address] Hyperglycemia (Primary Dx); Chronic pain syndrome; [...] this encounter Progress Notes * Jose Manuel Vlilegas MD - 06/09/2022 10:45 AM CDT [facility] [address] [place] [address] Date: 06/09/2022 Name: Edilberto Hawley : 1955 [...] 9:52 AM This document was dictated using Myre[employer]on; biomass power plant manager variances may occur documented in this encounter [...] Rheumatoid Factor 33(H) 0 - 30 IU/mL [facility] Blood 06/09/2022 10:1 0 AM CDT 06/09/2022 10:24 AM CDT Comment:- Narrative [facility] - 06/09/2022 11:25 AM CDT Testing performed at [facility], [address] [place] [address]. CLIA [id number] Phone [phone] Ext [phone] ??Preparation Plant Repairer Shant Rivas MD us Jose Manuel Villegas MD LAB BLOOD ORDERABLES Final Result [facility] [address] [place] [address] [phone] * PSA (06/09/2022 10:10 AM CDT) PSA 0.28 0.00 - 4.00 ng/mL [facility] Comment:Testing performed by Chemiluminescent Microparticle Immunoassay (CMIA) on Axeda I. Blood 06/09/2022 10:1 0 AM CDT 06/09/2022 10:24 AM CDT Comment:- Narrative [facility] - 06/09/2022 11:47 AM CDT Testing performed at [facility], [address] [place] [address]. CLIA [id number] Phone [phone] Ext [phone] ??Preparation Plant Repairer Shant Rivas MD Jose Manuel Villegas MD LAB BLOOD ORDERABLES Final Result Performing Organization Address [facility] Co de Phone Number [facility] [address] [place] [address] [phone] * Hemoglobin A1c (06/09/2022 10:10 AM CDT) Hemoglobin A1C 6.4 % [facility] Comment: Nondiabetic Patient: ? 4.0 - 6.0 % Controlled Diabetic Patient: ?? < 7.0 % Clinical correlation is essential Estimated Avg Glucose 137 mg/dL [facility] Blood 06/09/2022 10:1 0 AM CDT 06/09/2022 10:24 AM CDT Comment:- Narrative [facility] - 06/09/2022 10:35 AM CDT Testing performed at [facility], [address] [place] [address]. CLIA [id number] Phone [phone] Ext [phone] ??Preparation Plant Repairer Shant Rivas MD Jose Manuel Villegas MD LAB BLOOD ORDERABLES Final Result Performing Organization Address [facility] Co de Phone Number [facility] [address] [place] [address] [phone] documented in this encounter Visit Diagnoses [...] documented as of this encounter Care Teams Resource Development Manager Relationship Specialty Start Date End Date Jose Manuel Villegas MD [address] [place] [address] PCP - General Head Of Integrated Media 05/12/22 11/25/22 Lacey Perdue MD [address] [phone] Referring Physician Infectious Diseases 06/28/18 documented as of this encounter
--- OUTSIDE RECORDS SUMMARY | 2024-11-23 10:14 | XMS_ITS | Encounter Summary ---
Author Organization [employer] Address [address] [place] [address] Care Team Providers Care Coil Rewind Machine Operator Name Role Phone Lacey Perdue MD Unavailable [phone] Patient, None Per Primary Care Provider Unavaila ble Reason for Visit * Reason Onset Date Comments PT asked if [facility] RX pain meds. He has upcoming OILER BANDER appt. 04/14/2022 PT asked if [facility] RX pain meds. He has upcoming OILER BANDER appt. Encounter Details Date Type Department Care Team (Late st Contact Info) Description 04/14/2022 Telephone [facility] [address] [place] [address] Mia Warren [address] [place] [address] PT asked if [facility] RX pain meds. He has upcoming OILER BANDER appt. (PT asked if [facility] RX pain meds. He has upcoming OILER BANDER appt.) Social History Tobacco Use Types Packs/Day [...] Author No 10/25/2017 2:00 PM Deonna Padilla, GARAGE HELPER * Are you blind or do you have serious difficulty seeing, even when wearing glasses? Answer Date of Assessment Author No 10/25/2017 2:00 PM JOHN Galvan Am y S, GARAGE HELPER * Do you have serious difficulty walking or climbing stairs? (5 years old or older) Answer Date of Assessment Author No 10/25/2017 2:00 PM Deonna Padilla S, GARAGE HELPER * Do you have difficulty dressing or bathing? (5 years old or older) Answer Date of Assessment Author No 10/25/2017 2:00 PM Deonna Padilla S, GARAGE HELPER * Because of a physical, mental, or emotional condition, do you have difficulty doing errands alone such as visiting a doctor's office or shopping? (15 years old or older) Answer Date of Assessment Author No 10/25/2017 2:00 PM Deonna Padilla, GARAGE HELPER documented as of this encounter Mental Status * Because of a physical, mental, or emotional condition, do you have serious difficulty concentrating, remembering, or making decisions? (5 years old or older) Answer Entry Date Author No 10/25/2017 2:00 PM Deonna Padilla, GARAGE HELPER documented in this encounter Miscellaneous Notes * Telephone Encounter - Mia Warren - 04/14/2022 12:23 PM CDT PT asked if [facility] RX pain meds. He has upcoming OILER BANDER appt. documented in this encounter Plan of [...] documented for the patient 12/23/2021 12:30 PM INJECTION MOLDING MACHINE OFFBEARER documented as of this encounter Care Teams Coil Rewind Machine Operator Relationship Specialty Start Date End Date Patient, None Per PCP - General 02/26/22 05/11/22 Lacey Perdue MD [address] [phone] Referring Physician Infectious Diseases 06/28/18 documented as of this encounter
--- OUTSIDE RECORDS SUMMARY | 2024-11-23 10:14 | XMS_ITS | Encounter Summary ---
Author Organization [employer] Address [address] [place] [address] Care Team Providers Care Track Car Operator Name Role Phone Lacey Perdue MD Unavailable [phone] Jose Manuel Villegas MD Primary Care Provider [...] of Assessment Author No 10/25/2017 2:00 PM INTERLOCKING MACHINE OPERATOR Galvan, Am y S, LABOR DELIVERY SPECIALIST * Do you have serious difficulty walking or climbing stairs? (5 years old or older) Answer Date of Assessment Author No 10/25/2017 2:00 PM JOHN Galvan Am y S, LABOR DELIVERY SPECIALIST * Do you have difficulty dressing or bathing? (5 years old or older) Answer Date of Assessment Author No 10/25/2017 2:00 PM INTERLOCKING MACHINE OPERATOR Deonna Galvan y S, LABOR DELIVERY SPECIALIST * Because of a physical, mental, or emotional condition, do you have difficulty doing errands alone such as visiting a doctor's office or shopping? (15 years old or older) Answer Date of Assessment Author No 10/25/2017 2:00 PM INTERLOCKING MACHINE OPERATOR Deonna Galvan y S, LABOR DELIVERY SPECIALIST documented as of this encounter Mental Status * Because of a physical, mental, or emotional condition, do you have serious difficulty concentrating, remembering, or making decisions? (5 years old or older) Answer Entry Date Author No 10/25/2017 2:00 PM JOHN Galvan Am y S, LABOR DELIVERY SPECIALIST documented in this encounter Plan of [...] documented as of this encounter Care Teams Track Car Operator Relationship Specialty Start Date End Date Jose Manuel Villegas MD [address] [place] [address] PCP - General Top Lift And Automatic Window Repairer 05/12/22 11/25/22 Lacey Perdue MD [address] [phone] Referring Physician Infectious Diseases 06/28/18 documented as of this encounter
--- OUTSIDE RECORDS SUMMARY | 2024-11-23 10:14 | XMS_ITS | Encounter Summary ---
Author Organization [employer] Address [address] [place] [address] Care Team Providers Care Bee Keeper Name Role Phone Lacey Perdue MD Unavailable [phone] Michell Trevizo MD Primary Care Provider [phone] Reason for Visit * Reason Comments Medication Refill Encounter Details Date Type Department Care Team (Late st Contact Info) Description 12/23/2021 Refill [facility] Internal Medicine [address] [place] [phone] Michell Trevizo MD [address] [place] [address] Social History Tobacco Use Types Packs/Day [...] COVID-19? No / Unsure 12/23/2021 11:28 AM METAL TRIM ERECTOR documented as of this encounter Functional Status * Are you deaf or do you have serious difficulty hearing? Answer Date of Assessment Author No 10/25/2017 2:00 PM Deonna Padilla, QUILLER HAND * Are you blind or do you have serious difficulty seeing, even when wearing glasses? Answer Date of Assessment Author No 10/25/2017 2:00 PM Deonna Padilla S, QUILLER HAND * Do you have serious difficulty walking or climbing stairs? (5 years old or older) Answer Date of Assessment Author No 10/25/2017 2:00 PM Deonna Padilla S, QUILLER HAND * Do you have difficulty dressing or bathing? (5 years old or older) Answer Date of Assessment Author No 10/25/2017 2:00 PM Deonna Padilla, QUILLER HAND * Because of a physical, mental, or emotional condition, do you have difficulty doing errands alone such as visiting a doctor's office or shopping? (15 years old or older) Answer Date of Assessment Author No 10/25/2017 2:00 PM Deonna Padilla, QUILLER HAND documented as of this encounter Mental Status * Because of a physical, mental, or emotional condition, do you have serious difficulty concentrating, remembering, or making decisions? (5 years old or older) Answer Entry Date Author No 10/25/2017 2:00 PM Deonna Padilla, QUILLER HAND documented in this encounter Plan of Treatment [...] documented for the patient 12/23/2021 12:30 PM METAL TRIM ERECTOR documented as of this encounter Care Teams Bee Keeper Relationship Specialty Start Date End Date Michell Trevizo MD [address] [place] [address] PCP - General Internal Medicine 05/29/21 02/25/22 Lacey Perdue MD [address] [phone] Referring Physician Infectious Diseases 06/28/18 documented as of this encounter
--- OUTSIDE RECORDS SUMMARY | 2024-11-23 10:14 | XMS_ITS | Encounter Summary ---
Author Organization [employer] Address [address] [place] [address] Care Team Providers Care Insurance Professional Name Role Phone Lacey Perdue MD Unavailable [phone] Michell Trevizo MD Primary Care Provider [phone] Patient, None Per Primary Care Provider Unavaila ble Encounter Details Date Type Department Care Team (Late st Contact Info) Description 02/04/2022 Orders Only [facility] Centralized Scanning Michell Trevizo MD [address] [place] [address] Social History Tobacco Use Types [...] of Assessment Author No 10/25/2017 2:00 PM BILLPOSTER Deonna Galvan y S, ASSOCIATE MEDICAL DIRECTOR * Are you blind or do you have serious difficulty seeing, even when wearing glasses? Answer Date of Assessment Author No 10/25/2017 2:00 PM BILLPOSTER Cole Am y S, ASSOCIATE MEDICAL DIRECTOR * Do you have serious difficulty walking or climbing stairs? (5 years old or older) Answer Date of Assessment Author No 10/25/2017 2:00 PM BILLPOSTER Cole Am y S, ASSOCIATE MEDICAL DIRECTOR * Do you have difficulty dressing or bathing? (5 years old or older) Answer Date of Assessment Author No 10/25/2017 2:00 PM BILLPOSTER Cole Am y S, ASSOCIATE MEDICAL DIRECTOR * Because of a physical, mental, or emotional condition, do you have difficulty doing errands alone such as visiting a doctor's office or shopping? (15 years old or older) Answer Date of Assessment Author No 10/25/2017 2:00 PM BILLPOSTER Cole Am y S, ASSOCIATE MEDICAL DIRECTOR documented as of this encounter Mental Status * Because of a physical, mental, or emotional condition, do you have serious difficulty concentrating, remembering, or making decisions? (5 years old or older) Answer Entry Date Author No 10/25/2017 2:00 PM BILLPOSTER Deonna Galvan y S, ASSOCIATE MEDICAL DIRECTOR documented in this encounter Plan of Treatment [...] documented for the patient 12/23/2021 12:30 PM BILLPOSTER documented as of this encounter Care Teams Insurance Professional Relationship Specialty Start Date End Date Michell Trevizo MD [address] [place] [address] PCP - General Internal Medicine 05/29/21 02/25/22 Patient, None Per PCP - General 02/26/22 05/11/22 Lacey Perdue MD [address] [phone] Referring Physician Infectious Diseases 06/28/18 documented as of this encounter
--- OUTSIDE RECORDS SUMMARY | 2024-11-23 10:14 | XMS_ITS | Encounter Summary ---
Author Organization [employer] Address [address] [place] [address] Care Team Providers Care Vamp Stitcher Name Role Phone Lacey Perdue MD Unavailable [phone] Jose Manuel Villegas MD Primary Care Provider Reason for Visit * Reason Comments Shoulder Pain Encounter Details Date Type Department Care Team (Late st Contact Info) Description 06/09/2022 8:30 AM CDT Clinical Support [facility] [place] [address] Shital Dumont, PAMacC [address] [place] [address] Radha Chandler, RTR [address] [place] [address] Left wrist pain; Left shoulder [...] of Assessment Author No 10/25/2017 2:00 PM COMMERCIAL ILLUSTRATOR Cole, Am y S, CONCRETE PIPE MACHINE OPERATOR * Are you blind or do you have serious difficulty seeing, even when wearing glasses? Answer Date of Assessment Author No 10/25/2017 2:00 PM COMMERCIAL ILLUSTRATOR Galvan, Am y S, CONCRETE PIPE MACHINE OPERATOR * Do you have serious difficulty walking or climbing stairs? (5 years old or older) Answer Date of Assessment Author No 10/25/2017 2:00 PM COMMERCIAL ILLUSTRATOR Galvan, Am y S, CONCRETE PIPE MACHINE OPERATOR * Do you have difficulty dressing or bathing? (5 years old or older) Answer Date of Assessment Author No 10/25/2017 2:00 PM COMMERCIAL ILLUSTRATOR Galvan, Am y S, CONCRETE PIPE MACHINE OPERATOR * Because of a physical, mental, or emotional condition, do you have difficulty doing errands alone such as visiting a doctor's office or shopping? (15 years old or older) Answer Date of Assessment Author No 10/25/2017 2:00 PM COMMERCIAL ILLUSTRATOR Galvan, Am y S, CONCRETE PIPE MACHINE OPERATOR documented as of this encounter Mental Status * Because of a physical, mental, or emotional condition, do you have serious difficulty concentrating, remembering, or making decisions? (5 years old or older) Answer Entry Date Author No 10/25/2017 2:00 PM COMMERCIAL ILLUSTRATOR Cole Am y S, CONCRETE PIPE MACHINE OPERATOR documented in this encounter Plan [...] AM CDT Narrative 06/09/2022 8:55 AM CDT [address] ??[address] DI[facility]NOST[facility] IMAGING Name: EDILBERTO DURAND ??Ordering Phys: SHITAL DUMONT Date of : 1955 ?Gender: M ??Accession Number: [id number] EXAM DESCRIPTION: XR WRIST MIN 3 VIEWSLT [...] Procedure Note Dayanna Durbin MD - 06/09/[address] [address] DIAGNOSTIC IMAGING Name: EDILBERTO DURAND Ordering Phys: SHITAL DUMONT Date of : 1955 Gender: M Accession Number: [id number] EXAM DESCRIPTION: XR WRIST MIN 3 VIEWSLT [...] AM CDT Narrative 06/09/2022 8:57 AM CDT [address] ??[address] DIAGNOSTIC IMAGING Name: EDILBERTO DURAND ??Ordering Phys: ERIK SHITAL B Date of : 1955 ?Gender: M ??Accession Number: [id number] EXAM DESCRIPTION: XR SHOULDER MIN 2 VIEWS [id number] REASON FOR STUDY: Chronic left shoulder pain. [...] Procedure Note Dayanna Durbin MD - 06/09/[address] [address] DIAGNOSTIC IMAGING Name: EDILBERTO DURAND Ordering Phys: ERIK SHITAL B Date of : 1955 Gender: M Accession Number: [id number] EXAM DESCRIPTION: XR SHOULDER MIN 2 VIEWS [id number] REASON FOR STUDY: Chronic left shoulder pain. [...] documented as of this encounter Care Teams Vamp Stitcher Relationship Specialty Start Date End Date Jose Manuel Villegas MD [facility] [place] [address] PCP - General Regional Airline Pilot 05/12/22 11/25/22 Lacey Perdue MD [address] [phone] Referring Physician Infectious Diseases 06/28/18 documented as of this encounter
--- OUTSIDE RECORDS SUMMARY | 2024-11-23 10:14 | XMS_ITS | Encounter Summary ---
Author Organization [employer] Address [address] [place] [address] Care Team Providers Care Qa Developer Name Role Phone Lacey Perdue MD Unavailable [phone] Michell Trevizo MD Primary Care Provider [phone] Encounter Details Date Type Department Care Team [...] COVID-19? No / Unsure 12/15/2021 1:26 PM ASSEMBLY ASSOCIATE documented as of this encounter Functional Status * Are you deaf or do you have serious difficulty hearing? Answer Date of Assessment Author No 10/25/2017 2:00 PM ASSEMBLY ASSOCIATE Deonna Galvan ARNP * Are you blind or do you have serious difficulty seeing, even when wearing glasses? Answer Date of Assessment Author No 10/25/2017 2:00 PM ASSEMBLY ASSOCIATE Galvan, Am y S, BUFFER NICKEL * Do you have serious difficulty walking or climbing stairs? (5 years old or older) Answer Date of Assessment Author No 10/25/2017 2:00 PM Deonna Padilla S, BUFFER NICKEL * Do you have difficulty dressing or bathing? (5 years old or older) Answer Date of Assessment Author No 10/25/2017 2:00 PM ASSEMBLY ASSOCIATE Deonna Galvan y S, BUFFER NICKEL * Because of a physical, mental, or emotional condition, do you have difficulty doing errands alone such as visiting a doctor's office or shopping? (15 years old or older) Answer Date of Assessment Author No 10/25/2017 2:00 PM JOHN Galvan Am y S, BUFFER NICKEL documented as of this encounter Mental Status * Because of a physical, mental, or emotional condition, do you have serious difficulty concentrating, remembering, or making decisions? (5 years old or older) Answer Entry Date Author No 10/25/2017 2:00 PM Deonna Padilla, BUFFER NICKEL documented in this encounter Plan of Treatment [...] documented as of this encounter Care Teams Qa Developer Relationship Specialty Start Date End Date Michell Trevizo MD [address] [place] [address] PCP - General Internal Medicine 05/29/21 02/25/22 Lacey Perdue MD [address] [phone] Referring Physician Infectious Diseases 06/28/18 documented as of this encounter
--- OUTSIDE RECORDS SUMMARY | 2024-11-23 10:14 | XMS_ITS | Encounter Summary ---
Author Organization [employer] Address [address] [place] [address] Care Team Providers Care Qc Scientist Name Role Phone Lacey Perdue MD Unavailable [phone] Michell Trevizo MD Primary Care Provider [phone] Reason for Visit * Reason Onset Date Comments Medication Refill 02/03/2022 Encounter Details Date Type Department Care Team (Late st Contact Info) Description 02/03/2022 Refill [facility] Internal Medicine [address] [place] [address] Clarice Stevens, RN [address] [place] [address] Social History Tobacco Use Types [...] Author No 10/25/2017 2:00 PM Deonna Padilla, BIG DATA HADOOP DEVELOPER * Do you have serious difficulty walking or climbing stairs? (5 years old or older) Answer Date of Assessment Author No 10/25/2017 2:00 PM Deonna Padilla, BIG DATA HADOOP DEVELOPER * Do you have difficulty dressing or bathing? (5 years old or older) Answer Date of Assessment Author No 10/25/2017 2:00 PM Deonna Padilla, BIG DATA HADOOP DEVELOPER * Because of a physical, mental, [...] documented for the patient 12/23/2021 12:30 PM SAMPLE FINISHER documented as of this encounter Care Teams Qc Scientist Relationship Specialty Start Date End Date Michell Trevizo MD [address] [place] [address] PCP - General Internal Medicine 05/29/21 02/25/22 Lacey Perdue MD [address] [phone] Referring Physician Infectious Diseases 06/28/18 documented as of this encounter
--- OUTSIDE RECORDS SUMMARY | 2024-11-23 10:14 | XMS_ITS | Encounter Summary ---
Author Organization [employer] Address [address] [place] [address] Care Team Providers Care Front Office Director Name Role Phone Lacey Perdue MD Unavailable [phone] Michell Trevizo MD Primary Care Provider [phone] Reason for Visit * Reason Comments Follow-up 1 month- neck pain Encounter Details Date Type Department Care Team (Latest Contact Info) Description 10/14/2021 9:00 AM KETTLE HAND Office Visit [facility] Internal Medicine [address] [place] [address] Michell Trevizo MD [address] [place] [address] COVID-19 (Primary Dx); Congestion of nasal [...] COVID-19? No / Unsure 10/14/2021 8:23 AM KETTLE HAND documented as of this encounter Last Filed Vital Signs Vital Sign Reading Time Taken Comments Blood Pressure 118/78 10/14/2021 8:51 AM KETTLE HAND Pulse 80 10/14/2021 8:51 AM KETTLE HAND Temperature - - Respiratory Rate - - Oxygen Saturation - - Inhaled Oxygen Concentration - - Weight 89.4 kg (197 lb) 10/14/2021 8:51 AM KETTLE HAND Height - - Body Mass Index 27.48 02/25/2021 9:01 AM CDT documented in this encounter Functional Status * Are you deaf or do you have serious difficulty hearing? Answer Date of Assessment Author No 10/25/2017 2:00 PM KETTLE HAND Deonna Galvan y S, PAVING RAMMER * Are you blind or do you have serious difficulty seeing, even when wearing glasses? Answer Date of Assessment Author No 10/25/2017 2:00 PM KETTLE HAND Cole Am y S, PAVING RAMMER * Do you have serious difficulty walking or climbing stairs? (5 years old or older) Answer Date of Assessment Author No 10/25/2017 2:00 PM KETTLE HAND Cole Am y S, PAVING RAMMER * Do you have difficulty dressing or bathing? (5 years old or older) Answer Date of Assessment Author No 10/25/2017 2:00 PM KETTLE HAND Cole Am y S, PAVING RAMMER * Because of a physical, mental, or emotional condition, do you have difficulty doing errands alone such as visiting a doctor's office or shopping? (15 years old or older) Answer Date of Assessment Author No 10/25/2017 2:00 PM KETTLE HAND Cole Am y S, PAVING RAMMER documented as of this encounter Mental Status * Because of a physical, mental, or emotional condition, do you have serious difficulty concentrating, remembering, or making decisions? (5 years old or older) Answer Entry Date Author No 10/25/2017 2:00 PM KETTLE HAND Cole Am y S, PAVING RAMMER documented in this encounter Patient Instructions * Patient Instructions* Michell Trevizo MD - 10/14/2021 9:00 AM KETTLE HAND COVID testing Hold on Flu shot till feeling better Follow 1 month LE HAND LE HAND LE HAND documented in this encounter Progress Notes * Meme Chen LPN - 10/14/2021 9:00 AM CST [facility] Department of Internal Medicine [address] [place] [id number] Visit Date: 10/14/2021 MEDICARE ANNUAL WELLNESS VISIT This visit must occur >1 year after patient's Initial Medicare Annual Wellness Visit. This visit may only occur if not done elsewhere. Subjective: Edilberto Hawley is a 66 y.o. male who presents to [facility] for [place] Medicare Wellness [...] of left rotator cuff ??? Hyperlipidemia ??? care home current use of opiate analgesic ??? [...] After Visit Summary. Michell Trevizo MD [id number] LE HAND * Michell Tervizo MD - 10/14/2021 9:00 AM CST General Internal Medicine Patient Note [facility] CC: Chief Complaint Patient presents with ??? Follow-up 1 month- neck pain History of Present Illness: Edilberto Hawley is a 66 y.o. male presenting to clinic for follow up. Recently travelled to [place] and got sick while there. Last night [...] Past Medical/Surgical/Family/Social History: Reviewed and updated in [facility] History tab Medications: Reviewed and updated in [facility] Medications tab Current Outpatient Medications Medication [...] this visit. Allergies: Reviewed and updated in [facility] Allergies tab BP 118/78 Pulse 80 [...] MD Internal Medicine Sleep Medicine Obesity Medicine LE HAND documented in this encounter Plan of Treatment Not on file documented as of this encounter Goals Goal Patient Goal Type Associated Problems Recent Progress Patient-Stated? Author Blood Pressure < 140/90 Blood Pressure 134/86(2022 2:25 PM CDT) No Leonard Jasso APRN documented as of this encounter Results * (ABNORMAL) Coronavirus SARS-CoV-2 (10/14/2021 9:41 AM KETTLE HAND) SARS-CoV-2 PCR POSITIVE( A) Negative [facility] Comment:The novel coronaviru s (Sars-CoV-2) target nucleic acids are detected. NASOPHARYNGEAL SWAB / Unknown 10/14/2021 9:41 AM KETTLE HAND 10/14/2021 11:17 AM KETTLE HAND Comment:- Narrative [facility] - 10/14/2021 1:32 PM KETTLE HAND Indication Reason:->Suspected COVID-19 OP Testing is performed by the [employer] GeneXpert real-time, reverse communications billing analyst polymerase chain reaction (RT-PCR) assay. Testing with [...] available to the physician. Testing performed at [facility], [address] [place] [address]. CLIA [id number] Phone [phone] Ext [phone] ??Precipitator Operator Shant Rivas MD Michell Trevizo MD MICROBIOLOGY - GENERAL ORDERAB LES Final Result [facility] [address] [place] [address] [phone] documented in this encounter Visit Diagnoses [...] documented as of this encounter Care Teams Front Office Director Relationship Specialty Start Date End Date Michell Trevioz MD [address] [place] [address] PCP - General Internal Medicine 05/29/21 02/25/22 Lacey Perdue MD [address] [phone] Referring Physician Infectious Diseases 06/28/18 documented as of this encounter
--- OUTSIDE RECORDS SUMMARY | 2024-11-23 10:14 | XMS_ITS | Encounter Summary ---
Author Organization [employer] Address [address] [place] [address] Care Team Providers Care Saw Boss Name Role Phone Lacey Perdue MD Unavailable [phone] Jose Manuel Maurer MD Primary Care Provider Reason for Visit * Reason Comments Abdominal Pain * MRI/CAT Scan (Urgent) - Closed Specialty Diagnoses / Procedures Referred By Contac t Referred To Contact Radiology Diagnoses Intractable abdominal pain Other osteoarthritis involving multiple joints Procedures CT Abdomen and Pelvis w Contrast Jose Manuel Maurer MD [address] [place] [address] Phone: tel: fax: Referral ID Status Reason Start Date Expiration Date Visits Re quested Visits Authorized [id number] Closed 05/12/2022 11/13/2023 1 1 Encounter Details Date Type Department Care Team ([facility] st Contact Info) Description 05/12/2022 11:30 AM CDT Clinical Support [facility] [address] [place] [address] Jose Manuel Maurer MD [facility] [place] [address] Janelle Granados, RTR [address] [place] [address] Intractable abdominal pain; Other osteoarthritis [...] Author No 10/25/2017 2:00 PM Deonna Padilla TABULAR TYPIST * Because of a physical, mental, or [...] 2:25 PM CDT) No Leonard Jasso W, RUNNING INSTRUCTOR documented as of this encounter Procedures Procedure [...] AM CDT Narrative 05/12/2022 12:11 PM CDT [address] ??[address] DIAGNOSTIC IMAGING Name: EDILBERTO DURAND ??Ordering Phys: JOSE MANUEL MAURER Date of : 1955 ?Gender: M ??Accession Number: [id number] EXAM DESCRIPTION: CT ABDOMEN AND PELVIS W [...] Procedure Note Jesús Clark MD - 05/12/2022 [place] [address] DIAGNOSTIC IMAGING Name: EDILBERTO DURAND Ordering Phys: MERCY MAURERMRAIANNE Date of : 1955 Gender: M Accession Number: [id number] EXAM DESCRIPTION: CT ABDOMEN AND PELVIS W [...] documented as of this encounter Care Teams Saw Boss Relationship Specialty Start Date End Date Jose Manuel Maurer MD [facility] [place] [address] PCP - General Anglesmith Helper 05/12/22 11/25/22 Lacey Perdue MD [address] [address] Referring Physician Infectious Diseases 06/28/18 documented as of this encounter
--- OUTSIDE RECORDS SUMMARY | 2024-11-23 10:14 | XMS_ITS | Encounter Summary ---
Author Organization [employer] Address [address] [place] [address] Care Team Providers Care Postie Name Role Phone Lacey Perdue MD Unavailable Jose Manuel Villegas MD Primary Care Provider Reason for Referral * Referral (Routine) - Closed Specialty Diagnoses / Procedures Referred By Celine almaguer Referred To Contact Plastic Surgery Diagnoses Left wrist pain Osteoarthritis of left wrist, unspecified osteoarthritis type Shital Dumont PA-C [address] [place] [address] Phone: tel: fax: Estevan Tripp MD [address] [place] [address] Phone: tel: fax: Referral ID Status Reason Start Date Expiration Date V isits Requested Visits Authorized [id number] Closed Specialty Services Required 06/09/2022 12/11/2023 1 1 Reason for Visit * Reason Comments Arm Pain Left arm wrist and s houlder pain * Referral (Routine) - Closed Specialty Diagnoses / Procedures Referred By Celine almaguer Referred To Contact Orthopedic Surgery Diagnoses Other chronic pain Eden Segundo, ARTIST MODEL [address] [facility] [address] [place] [address] Phone: tel: fax: [facility] [address] [place] [phone] Phone: tel: fax: Referral ID Status Reason Start Date Expiration Date V isits Requested Visits Authorized [id number] Closed Specialty Services Required 06/08/2022 12/10/2023 1 1 Encounter Details Date Type Department Care Team (Late st Contact Info) Description 06/09/2022 8:40 AM CDT Initial consult [facility] [address] [place] [phone] Eden Segundo, ARTIST MODEL [address] [facility] [address] [place] [address] Shital Dumont PA-C [address] [place] [address] Left wrist pain (Primary Dx); Left [...] of Assessment Author No 10/25/2017 2:00 PM FAST FOOD SERVER Cole, Am y S, ACUTE COORDINATOR * Are you blind or do you have serious difficulty seeing, even when wearing glasses? Answer Date of Assessment Author No 10/25/2017 2:00 PM FAST FOOD SERVER Galvan, Am y S, ACUTE COORDINATOR * Do you have serious difficulty walking or climbing stairs? (5 years old or older) Answer Date of Assessment Author No 10/25/2017 2:00 PM FAST FOOD SERVER Galvan, Am y S, ACUTE COORDINATOR * Do you have difficulty dressing or bathing? (5 years old or older) Answer Date of Assessment Author No 10/25/2017 2:00 PM FAST FOOD SERVER Galvan, Am y S, ACUTE COORDINATOR * Because of a physical, mental, or emotional condition, do you have difficulty doing errands alone such as visiting a doctor's office or shopping? (15 years old or older) Answer Date of Assessment Author No 10/25/2017 2:00 PM FAST FOOD SERVER Galvan, Am y S, ACUTE COORDINATOR documented as of this encounter Mental Status * Because of a physical, mental, or emotional condition, do you have serious difficulty concentrating, remembering, or making decisions? (5 years old or older) Answer Entry Date Author No 10/25/2017 2:00 PM FAST FOOD SERVER Cole, Am y S, ACUTE COORDINATOR documented in this encounter Progress Notes * Shital Dumont PA-C - 06/09/2022 8:40 AM CDT Subjective: Patient ID: Edilberto Hawley is a 66 y.o. male. HPI: Patient goes by Se. 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 He is not having issues after the [...] Negative Carnes. Negative cross body testing. Negative [place]. Shoulder stable to anterior and posterior stress. [...] report please call Shital Dumont PA-C at [phone]. * Maulik Hay MD - 06/09/2022 8:40 [...] AM CDT Narrative 06/09/2022 8:55 AM CDT [address] ??[address] DIAGNOSTIC IMAGING Name: EDILBERTO HAWLEY ??Ordering Phys: SHITAL DUMONT Date of : 1955 ?Gender: M ??Accession Number: [id number] EXAM DESCRIPTION: XR WRIST MIN 3 VIEWSLT [...] Procedure Note Dayanna Durbin MD - 06/09/[address] [address] DIAGNOSTIC IMAGING Name: EDILBERTO HAWLEY Ordering Phys: SHITAL DUMONT Date of : 1955 Gender: M Accession Number: [id number] EXAM DESCRIPTION: XR WRIST MIN 3 VIEWSLT [...] AM CDT Narrative 06/09/2022 8:57 AM CDT [address] ??[address] DIAGNOSTIC IMAGING Name: EDILBERTO HAWLEY ??Ordering Phys: SHITAL DUMONT Date of : 1955 ?Gender: M ??Accession Number: [id number] EXAM DESCRIPTION: XR SHOULDER MIN 2 VIEWS [id number] REASON FOR STUDY: Chronic left shoulder pain. [...] Procedure Note Dayanna Durbin MD - 06/09/2022 [place] [address] DIAGNOSTIC IMAGING Name: EDILBERTO HAWLEY Ordering Phys: SHITAL DUMONT Date of : 1955 Gender: M Accession Number: [id number] EXAM DESCRIPTION: XR SHOULDER MIN 2 VIEWS [id number] REASON FOR STUDY: Chronic left shoulder pain. [...] documented as of this encounter Care Teams Postie Relationship Specialty Start Date End Date Jose Manuel Villegas MD [address] [place] [address] PCP - General Thread Spinner 05/12/22 11/25/22 Lacey Perdue MD [address] [address] Referring Physician Infectious Diseases 06/28/18 documented as of this encounter
--- OUTSIDE RECORDS SUMMARY | 2024-11-23 10:14 | XMS_ITS | Encounter Summary ---
Author Organization [employer] Address [address] [place] [address] Care Team Providers Care Regulatory Lead Name Role Phone Lacey Perdue MD Unavailable [phone] Patient, None Per Primary Care Provider Unavaila [...] CDT - 02/26/2022 7:40 PM CDT Emergency [facility] [address] [place] [id number] Rickey Bailey F, DO [address] [address] Epiploic appendagitis (Primary Dx) Discharge Disposition: Home [...] Entry Date Author No 10/25/2017 2:00 PM THERMIT WELDING MACHINE OPERATOR Deonna Galvan ARNP documented in this encounter [...] stenosis, unspecified spinal region,Hyperlipidem ia, unspecified hyperlipidemia type,COVID-19,[place] lobito liver enzymes,Hepatomegal y Take 1 (one) [...] of left rotator cuff ??? Hyperlipidemia ??? alf current use of opiate analgesic ??? Osteoarthritis [...] needed.apparently he has been dismissed from the [facility] practice and his recent provider. He [...] Clark M.D. Narrative 02/27/2022 1:52 AM CDT [address] [place] [address] DIAGNOSTIC IMAGING Name: EDILBERTO HAWLEY ??Ordering Phys: RICKEY BAILEY Date of : 1955 ?Gender: M ??Accession Number: [id number] PROCEDURE: Exam: CT Abdomen And Pelvis With [...] pelvis with contrast. Total images: 438 COMPARISON: [facility] 07/15/2021 7:50 AM FINDINGS: Lungs: [...] Small fat containing umbilical hernia. Procedure Note Jseús Clark MD - 02/27/[address] [place] [id number] DIAGNOSTIC IMAGING Name: EDILBERTO HAWLEY Ordering Phys: LEO RICKEY Adrian Date of : 1955 Gender: M Accession Number: [id number] PROCEDURE: Exam: CT Abdomen And Pelvis With [...] with contrast. Total images: 438 COMPARISON: [facility]EN [facility] 07/15/2021 7:50 AM FINDINGS: Lungs: Punctate calcified [...] - 230 U/L 02/26/2022 5:[address] [facility] Serum 02/26/2022 5:00 PM CDT 02/26/2022 5:05 PM CDT Edward F Leo DO LAB BLOOD ORDERABLES Final Result [facility] [address] [place], [place] [phone] [facility] [address] [place] [address] * (ABNORMAL) Comprehensive metabolic panel (02/26/2022 5:00 PM T) Sodium 142 136 - 145 mmol/L 02/26/2022 5:35 PM [facility] Potassium 4.6 3.5 - 5.1 mmol/L 02/26/2022 5:35 PM [facility] Chloride 104 98 - 107 mmol/L 02/26/2022 5:35 PM [facility] CO2 30 21 - 32 mmol/L 02/26/2022 5:35 PM [facility] Glucose 121(H) 74 - 106 mg/dL 02/26/2022 5:35 PM [facility] BUN 10 7.0 - 18.0 mg/dL 02/26/2022 5:35 PM [facility] Creatinine 0.94 0.70 - 1.30 mg/dL 02/26/2022 5:35 PM [facility] Calcium 9.7 8.5 - 10.1 mg/dL 02/26/2022 5:35 PM [facility] Total Protein 8.1 6.4 - 8.2 g/dL 02/26/2022 5:35 PM [facility] Albumin 4.3 3.4 - 5.0 g/dL 02/26/2022 5:35 PM [facility] Bilirubin Total 0.8 0.2 - 1.0 mg/dL 02/26/2022 5:[address] [facility] Alkaline Phosphatase 84 56 - 119 U/L 02/26/2022 5:35 PM [facility] AST 74(H) 15 - 37 U/L 02/26/2022 5:35 PM [facility] ALT 125(H) 16 - 63 U/L 02/26/2022 5:[address] [facility] Anion Gap 8 8 - 16 mmol/L 02/26/2022 5:[address] [facility] BUN/Creatinine Ratio 10.6 02/26/2022 5:[address] [facility] Osmolality Calculated 294 275 - 295 mosm/kg 02/26/2022 5:[address] [facility] Globulin 3.8(H) 2.3 - 3.4 g/dL 02/26/2022 5:[address] [facility] A/G Ratio 1.1 02/26/2022 5:[address] [facility] Creatinine Based eGFR 83 mL/min/[1. 73_m2] 02/26/2022 5:[address] [facility] Comment:GFR 60-90 Mild decre ased GFR. Serum 02/26/2022 5:00 PM CDT 02/26/2022 5:05 PM T Rickey Bailey DO LAB BLOOD ORDERABLES Final Result [facility] [address] [place], [place] [phone] [facility] [address] [place] [address] * CBC and differential (02/26/2022 5:00 PM T) WBC 9.14 4.00 - 11.00 10*3/uL 02/26/2022 5:[address] [facility] RBC 5.60 4.50 - 6.50 10*6/uL 02/26/2022 5:[address] [facility] HGB 17.8 13.8 - 18.0 g/dL 02/26/2022 5:[address] [facility] HCT 51.0 40.0 - 54.0 % 02/26/2022 5:[address] [facility] MCV 91.1 76 - 99 fL 02/26/2022 5:21 PM [facility] MCH 31.8 27.0 - 32.0 pg 02/26/2022 5:21 PM [facility] MCHC 34.9 30.0 - 35.0 g/dL 02/26/2022 5:21 PM [facility] Platelets 200 135 - 470 10*3/uL 02/26/2022 5:21 PM [facility] RDW-CV 11.7 11.0 - 17.0 % 02/26/2022 5:21 PM [facility] MPV 10.3 8.0 - 12.5 fL 02/26/2022 5:21 PM [facility] Differential Type AUTOMATED DIFFERENTIAL 02/26/2022 5: PM [facility] Neutrophil % 62.2 45.0 - 75.0 % 02/26/2022 5:21 PM [facility] Lymphocytes % 26.4 20.0 - 45.0 % 02/26/2022 5:21 PM [facility] Monocyte % 8.8 0.0 - 10.0 % 02/26/2022 5:21 PM [facility] Eosinophils Relative % 1.8 0.0 - 5.0 % 02/26/2022 5: PM [facility] Basophils % 0.5 0.0 - 2.0 % 02/26/2022 5:21 PM [facility] Immature Granulocytes% 0.3 0.0 - 1.6 % 02/26/2022 5:21 PM [facility] Neutrophils Absolute 5.69 2.00 - 7.90 10*3/uL 02/26/2022 5:21 PM [facility] Lymphocytes Absolute 2.41 1.00 - 4.00 10*3/uL 02/26/2022 5:21 PM [facility] Monos Absolute 0.80 0.00 - 0.80 10*3/uL 02/26/2022 5:21 PM [facility] Eosinophils Absolute Count 0.16 0.00 - 0.40 10*3/uL 02/26/2022 5:21 PM [facility] Basophils Absolute 0.05 0.00 - 0.10 10*3/uL 02/26/2022 5:[address] [facility] Immature Granulocytes Absolute 0.03 0.0 - 0.20 10*3/uL 02/26/2022 5:[address] [facility] Serum BLOOD SPECIMEN / Unknown 02/26/2022 5:00 PM CDT 02/26/2022 5:05 PM CDT Rickey Bailey DO LAB BLOOD ORDERABLES Final Result [facility] [address] [place], [place] [phone] [facility] [address] [place] [address] * Urinalysis with Reflex Testing (02/26/2022 4:55 PM T) Specimen, UA CLN CATCH 02/26/2022 4:[address] [facility] Color, UA YELLOW 02/26/2022 5:[address] [facility] Clarity, UA CLEAR CLEAR 02/26/2022 5:[address] [facility] Glucose, UA NEG NEG mg/dL 02/26/2022 5:[address] [facility] Bilirubin, UA NEG NEG 02/26/2022 5:[address] [facility] Ketones, UA NEG NEG mg/dL 02/26/2022 5:[address] [facility] Specific [place], UA 1.015 1.002 - 1.020 02/26/2022 5:[address] [facility] Blood, UA NEG NEG 02/26/2022 5:[address] [facility] PH, UA 7.0 5.0 - 8.0 02/26/2022 5:[address] [facility] Protein, UA NEG NEG mg/dL 02/26/2022 5:[address] [facility] Urobilinogen,U A 0.2 0.1 - 1.0 [Emmanuel'U ]/dL 02/26/2022 5:[address] [facility] Nitrite, UA NEG NEG 02/26/2022 5:[address] [facility] Leukocyte Esterase, UA NEG NEG 02/26/2022 5:[address] [facility] Comment NONE 02/26/2022 5:[address] [facility] Urine URINE SPECIMEN FROM URINARY BLADDER / Unknown 02/26/2022 4:55 PM CDT 02/26/2022 5:06 PM CDT Rickey Bailey DO URINE ORDERABLES Final Resu lt [facility] [address] [place], [place] [phone] [facility] [address] [place] [address] documented in this encounter Visit Diagnoses Diagnosis [...] documented for the patient 12/23/2021 12:30 PM THERMIT WELDING MACHINE OPERATOR documented as of this encounter Care Teams Regulatory Lead Relationship Specialty Start Date End Date Patient, None Per PCP - General 02/26/22 05/11/22 Lacey Perdue MD [address] [phone] Referring Physician Infectious Diseases 06/28/18 documented as of this encounter
--- OUTSIDE RECORDS SUMMARY | 2024-11-23 10:14 | XMS_ITS | Encounter Summary ---
Author Organization [employer] Address [address] [place] [address] Care Team Providers Care Infrastructure Analyst Name Role Phone Lacey Perdue MD Unavailable [phone] Michell Trevizo MD Primary Care Provider [phone] Encounter Details Date Type Department Care Team [...] COVID-19? No / Unsure 10/14/2021 8:23 AM PRODUCT SAFETY ENGINEER documented as of this encounter Functional Status * Are you deaf or do you have serious difficulty hearing? Answer Date of Assessment Author No 10/25/2017 2:00 PM PRODUCT SAFETY ENGINEER Deonna Galvan ARNP * Are you blind or do you have serious difficulty seeing, even when wearing glasses? Answer Date of Assessment Author No 10/25/2017 2:00 PM PRODUCT SAFETY ENGINEER Galvan, Am y S, INSIDE UPHOLSTERER * Do you have serious difficulty walking or climbing stairs? (5 years old or older) Answer Date of Assessment Author No 10/25/2017 2:00 PM Deonna Padilla S, INSIDE UPHOLSTERER * Do you have difficulty dressing or bathing? (5 years old or older) Answer Date of Assessment Author No 10/25/2017 2:00 PM PRODUCT SAFETY ENGINEER Deonna Galvan y S, INSIDE UPHOLSTERER * Because of a physical, mental, or emotional condition, do you have difficulty doing errands alone such as visiting a doctor's office or shopping? (15 years old or older) Answer Date of Assessment Author No 10/25/2017 2:00 PM JOHN Galvan Am y S, INSIDE UPHOLSTERER documented as of this encounter Mental Status * Because of a physical, mental, or emotional condition, do you have serious difficulty concentrating, remembering, or making decisions? (5 years old or older) Answer Entry Date Author No 10/25/2017 2:00 PM Deonna Padilla, INSIDE UPHOLSTERER documented in this encounter Plan of Treatment [...] documented as of this encounter Care Teams Infrastructure Analyst Relationship Specialty Start Date End Date Michell Trevizo MD [address] [place] [address] PCP - General Internal Medicine 05/29/21 02/25/22 Lacey Perdue MD [address] [phone] Referring Physician Infectious Diseases 06/28/18 documented as of this encounter
--- OUTSIDE RECORDS SUMMARY | 2024-11-23 10:14 | XMS_ITS | Encounter Summary ---
Author Organization [employer] Address [address] [place] [address] Care Team Providers Care Materials Planning Analyst Name Role Phone Lacey Perdue MD Unavailable Jose Manuel Villegas MD Primary Care Provider Encounter Details Date Type Department Care Team (Late st Contact Info) Description 06/04/2022 Orders Only [facility] [address] [place] [address] Nasir Pena, RN [address] [place] [address] Chronic pain syndrome (Primary Dx) [...] 2:00 PM JOHN Galvan Am y S, TOE TRIMMER * Are you blind or do you have serious difficulty seeing, even when wearing glasses? Answer Date of Assessment Author No 10/25/2017 2:00 PM JOHN Galvan Am y S, TOE TRIMMER * Do you have serious difficulty walking or climbing stairs? (5 years old or older) Answer Date of Assessment Author No 10/25/2017 2:00 PM JOHN Galvan Am y S, TOE TRIMMER * Do you have difficulty dressing or bathing? (5 years old or older) Answer Date of Assessment Author No 10/25/2017 2:00 PM OPHTHALMIC MEDICAL TECHNOLOGIST Deonna Galvan y S, TOE TRIMMER * Because of a physical, mental, or emotional condition, do you have difficulty doing errands alone such as visiting a doctor's office or shopping? (15 years old or older) Answer Date of Assessment Author No 10/25/2017 2:00 PM OPHTHALMIC MEDICAL TECHNOLOGIST Deonna Galvan y S, TOE TRIMMER documented as of this encounter Mental Status * Because of a physical, mental, or emotional condition, do you have serious difficulty concentrating, remembering, or making decisions? (5 years old or older) Answer Entry Date Author No 10/25/2017 2:00 PM JOHN Galvan Am y S, TOE TRIMMER documented in this encounter Plan of Treatment [...] documented as of this encounter Care Teams Materials Planning Analyst Relationship Specialty Start Date End Date Jose Manuel Villegas MD [facility] [place] [address] PCP - General Brass Roller 05/12/22 11/25/22 Lacey Perdue MD [address] [facility] [address] [place] [phone] Referring Physician Infectious Diseases 06/28/18 documented as of this encounter
--- OUTSIDE RECORDS SUMMARY | 2024-11-23 10:15 | XMS_ITS | Encounter Summary ---
Author Organization [employer] Address [address] [place] [address] Care Team Providers Care Director Of Programming Name Role Phone Lacey Perdue MD Unavailable [phone] Michell Trevizo MD Primary Care Provider Encounter [...] of Assessment Author No 10/25/2017 2:00 PM ROOFING LABORER Galvan, Am y S, SWEATBAND CUTTING MACHINE OPERATOR * Do you have serious difficulty walking or climbing stairs? (5 years old or older) Answer Date of Assessment Author No 10/25/2017 2:00 PM Deonna Padilla S, SWEATBAND CUTTING MACHINE OPERATOR * Do you have difficulty dressing or bathing? (5 years old or older) Answer Date of Assessment Author No 10/25/2017 2:00 PM JOHN Galvan Am y S, SWEATBAND CUTTING MACHINE OPERATOR * Because of a physical, mental, or emotional condition, do you have difficulty doing errands alone such as visiting a doctor's office or shopping? (15 years old or older) Answer Date of Assessment Author No 10/25/2017 2:00 PM JOHN Galvan Am y S, SWEATBAND CUTTING MACHINE OPERATOR documented as of this encounter Mental Status * Because of a physical, mental, or emotional condition, do you have serious difficulty concentrating, remembering, or making decisions? (5 years old or older) Answer Entry Date Author No 10/25/2017 2:00 PM Deonna Padilla S, SWEATBAND CUTTING MACHINE OPERATOR documented in this encounter Plan [...] of this encounter Care Teams Director Of Programming Relationship Specialty Start Date End Date Michell Trevizo MD [facility] [place] [address] PCP - General Internal Medicine 05/29/21 02/25/22 Lacey Perdue MD [address] [phone] Referring Physician Infectious Diseases 06/28/18 documented as of this encounter
--- OUTSIDE RECORDS SUMMARY | 2024-11-23 10:15 | XMS_ITS | Encounter Summary ---
Author Organization [employer] Address [address] [place] [address] Care Team Providers Care Green Building Engineer Name Role Phone Lacey Perdue MD Unavailable [phone] Patient, None Per Primary Care Provider Unavaila ble Reason for Referral * Referral (Routine) - Closed Specialty Diagnoses / Procedures Referred By Celine almaguer Referred To Contact Plastic Surgery Diagnoses Left wrist pain Emmanuel Jefferson NP [address] [place] [address] Phone: tel: fax: Estevan Tripp MD [address] [place] [address] Phone: tel: fax: Referral ID Status Reason Start Date Expiration Date V isits Requested Visits Authorized [id number] Closed Specialty Services Required 05/15/2021 11/16/2022 1 1 Reason for Visit * Reason Onset Date Comments Wrist Pain 05/15/2021 Encounter Details Date Type Department Care Team (Late st Contact Info) Description 05/15/2021 Telephone [facility] [address] [place] [phone] Lynne Boudreaux, [place] [address] [place] [address] Wrist Pain Social History Tobacco [...] Assessment Author No 10/25/2017 2:00 PM FIELD RADIO TECHNICIAN Cole Am y S, DIVER'S TENDER * Are you blind or do you have serious difficulty seeing, even when wearing glasses? Answer Date of Assessment Author No 10/25/2017 2:00 PM FIELD RADIO TECHNICIAN Cole Am y S, DIVER'S TENDER * Do you have serious difficulty walking or climbing stairs? (5 years old or older) Answer Date of Assessment Author No 10/25/2017 2:00 PM FIELD RADIO TECHNICIAN Deonna Galvan y S, DIVER'S TENDER * Do you have difficulty dressing or bathing? (5 years old or older) Answer Date of Assessment Author No 10/25/2017 2:00 PM FIELD RADIO TECHNICIAN Cole Am y S, DIVER'S TENDER * Because of a physical, mental, or emotional condition, do you have difficulty doing errands alone such as visiting a doctor's office or shopping? (15 years old or older) Answer Date of Assessment Author No 10/25/2017 2:00 PM FIELD RADIO TECHNICIAN Cole Am y S, DIVER'S TENDER documented as of this encounter Mental Status * Because of a physical, mental, or emotional condition, do you have serious difficulty concentrating, remembering, or making decisions? (5 years old or older) Answer Entry Date Author No 10/25/2017 2:00 PM FIELD RADIO TECHNICIAN Deonna Galvan y S, DIVER'S TENDER documented in this encounter Miscellaneous Notes * [...] documented as of this encounter Care Teams Green Building Engineer Relationship Specialty Start Date End Date Patient, None Per PCP - General 05/01/21 05/28/21 Lacey Perdue MD [address] [phone] Referring Physician Infectious Diseases 06/28/18 documented as of this encounter
--- OUTSIDE RECORDS SUMMARY | 2024-11-23 10:15 | XMS_ITS | Encounter Summary ---
Author Organization [employer] Address [address] [place] [address] Care Team Providers Care Public Relations Professional Name Role Phone Lacey Perdue MD Unavailable [phone] Michell Trevizo MD Primary Care Provider [phone] Reason for Visit * Reason Comments Sinus Problem Encounter Details Date Type Department Care Team ([facility] st Contact Info) Description 09/15/2021 10:30 AM CDT Office Visit [facility] [address] [place] [phone] Carson Wolff MD [address] [place] [phone] History of nasal septoplasty (Primary Dx); [...] No 10/25/2017 2:00 PM Deonna Padilla S, INK GRINDER * Are you blind or do you have serious difficulty seeing, even when wearing glasses? Answer Date of Assessment Author No 10/25/2017 2:00 PM ADMINISTRATIVE SERVICES COORDINATOR Deonna Glavan y S, INK GRINDER * Do you have serious difficulty walking or climbing stairs? (5 years old or older) Answer Date of Assessment Author No 10/25/2017 2:00 PM JOHN Galvan Am y S, INK GRINDER * Do you have difficulty dressing or bathing? (5 years old or older) Answer Date of Assessment Author No 10/25/2017 2:00 PM Deonna Padilla S, INK GRINDER * Because of a physical, mental, or emotional condition, do you have difficulty doing errands alone such as visiting a doctor's office or shopping? (15 years old or older) Answer Date of Assessment Author No 10/25/2017 2:00 PM Deonna Padilla S, INK GRINDER documented as of this encounter Mental Status * Because of a physical, mental, or emotional condition, do you have serious difficulty concentrating, remembering, or making decisions? (5 years old or older) Answer Entry Date Author No 10/25/2017 2:00 PM Deonna Padilla, INK GRINDER documented in this encounter Progress Notes * [...] ??? Rotator cuff injury ??? Substance abuse ([facility]) ??? Migraines ??? Chronic back pain greater than 3 months duration ??? Arthritis ??? 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 Cellulitis of axilla, right ??? Avascular necrosis of bone ([facility]) ??? Spinal stenosis ??? Chronic pain ??? Closed fracture of transverse process of lumbar vertebra with routine healing ??? Femoral acetabular impingement ??? 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 History of repair of left rotator cuff ??? Hyperlipidemia ??? 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 Osteoarthritis [...] Osteomyelitis of ankle or foot, acute, right ([facility]) 2018 Stepped on nail ??? Shoulder injury ??? Substance abuse ([facility]) cocaine, crystal meth nothing [...] Head and Neck Surgery [facility] NISTRATIVE SERVICES COORDINATOR documented in this encounter Plan of Treatment Not on file documented as of this encounter Goals Goal Patient Goal Type Associated Problems Recent Progress Patient-Stated? Author Blood Pressure < 140/90 Blood Pressure 134/86(2022 2:25 PM CDT) No Leonard Jasso APRN documented as of this encounter Results * Other Source Culture (09/15/2021 11:54 AM CDT) Other Source Culture Microbiology results [facility] Comment: SOURCE Sinus QUANTITATION MODERATE, MIXED [...] CDT 09/15/2021 11:55 AM CDT Comment:- Narrative [facility] - 09/18/2021 2:19 PM CDT Maxillary sinus Testing performed at [facility], [address] [place] [address]. CLIA [id number] Phone [phone] Ext [phone] ??Nurse Emergency Shant Rivas MD us Carson Wolff MD MICROBIOLOGY - GENERAL OR DERABLES Final Result Performing Organization Address City/State/[facility] Co de Phone Number [facility] [address] [place] [address] [phone] documented in this encounter Visit Diagnoses [...] as of this encounter Care Teams Public Relations Professional Relationship Specialty Start Date End Date Michell Trevizo MD [address] [place] [address] PCP - General Internal Medicine 05/29/21 02/25/22 Lacey Perdue MD [address] [place] [phone] Referring Physician Infectious Diseases 06/28/18 documented as of this encounter
--- OUTSIDE RECORDS SUMMARY | 2024-11-23 10:15 | XMS_ITS | Encounter Summary ---
Author Organization [employer] Address [address] [place] [address] Care Team Providers Care Instructor Watch Assembly Name Role Phone Lacey Perdue MD Unavailable [phone] Michell Trevizo MD Primary Care Provider [phone] Encounter Details Date Type Department Care Team [...] of Assessment Author No 10/25/2017 2:00 PM ACTIVITIES DIRECTOR SCOUTING Galvan, Am y S, FACE MAN * Do you have serious difficulty walking or climbing stairs? (5 years old or older) Answer Date of Assessment Author No 10/25/2017 2:00 PM Deonna Padilla S, FACE MAN * Do you have difficulty dressing or bathing? (5 years old or older) Answer Date of Assessment Author No 10/25/2017 2:00 PM JOHN Galvan Am y S, FACE MAN * Because of a physical, mental, or emotional condition, do you have difficulty doing errands alone such as visiting a doctor's office or shopping? (15 years old or older) Answer Date of Assessment Author No 10/25/2017 2:00 PM JOHN Galvan Am y S, FACE MAN documented as of this encounter Mental Status * Because of a physical, mental, or emotional condition, do you have serious difficulty concentrating, remembering, or making decisions? (5 years old or older) Answer Entry Date Author No 10/25/2017 2:00 PM Deonna Padilla S, FACE MAN documented in this encounter Plan of [...] documented as of this encounter Care Teams Instructor Watch Assembly Relationship Specialty Start Date End Date Michell Trevizo MD [facility] [place] [address] PCP - General Internal Medicine 05/29/21 02/25/22 Lacey Perdue MD [address] [phone] Referring Physician Infectious Diseases 06/28/18 documented as of this encounter
--- OUTSIDE RECORDS SUMMARY | 2024-11-23 10:15 | XMS_ITS | Encounter Summary ---
Author Organization [employer] Address [address] [place] [address] Care Team Providers Care Broke Beater Machine Operator Name Role Phone Lacey Perdue MD Unavailable [phone] Michell Trevizo MD Primary Care Provider [phone] Encounter Details Date Type Department Care Team (Latest Contact Info) Description 08/27/2021 Transcribe Orders [facility] [address] [place] [phone] Eve Ward, HOME CARE AIDE [address] [place] [address] Pre-operative exam (Primary Dx); Nasal [...] Author No 10/25/2017 2:00 PM Deonna Padilla, PERL PROGRAMMER * Are you blind or do you have serious difficulty seeing, even when wearing glasses? Answer Date of Assessment Author No 10/25/2017 2:00 PM Deonna Padilla, PERL PROGRAMMER * Do you have serious difficulty walking or climbing stairs? (5 years old or older) Answer Date of Assessment Author No 10/25/2017 2:00 PM Deonna Padilla, PERL PROGRAMMER * Do you have difficulty dressing or bathing? (5 years old or older) Answer Date of Assessment Author No 10/25/2017 2:00 PM Deonna Padilla, PERL PROGRAMMER * Because of a physical, mental, or emotional condition, do you have difficulty doing errands alone such as visiting a doctor's office or shopping? (15 years old or older) Answer Date of Assessment Author No 10/25/2017 2:00 PM Deonna Padilla, PERL PROGRAMMER documented as of this encounter Mental [...] Comprehensive metabolic panel (08/27/2021 1:19 PM CDT) [facility] Glucose 127(H) 60 - 100 mg/dL [facility] Comment: Fasting Plasma Glucose (FPG) ?<100 MG/DL Impaired Fasting Glucose (IFG) ? 100-125 MG/DL Provisional Diagnosis of Diabetes Mellitus ?? > or = 126 MG/DL (Diagnosis Must Be Confirmed) BUN 11 8 - 26 mg/dL [facility] Creatinine 0.9 0.7 - 1.4 mg/dL [facility] Glomerular Filtration Rate Estimate 89 >80 mL/min/1.7 3mm2 [facility] Glomerular Filtration Rate Estimate- 103 >80 mL/min/1.7 3mm2 [facility] Comment:The estimated GFR george s not been validated for women or patients with serious comorbid conditions, or with extremes of body size, muscle mass, or nutritional status. Calcium 9.6 8.4 - 10.2 mg/dL [facility] Sodium 137 136 - 145 mmol/L [facility] Potassium 5.2(H) 3.4 - 4.9 mmol/L [facility] Chloride 103 99 - 111 mmol/L [facility] CO2 28.0 21.0 - 32.0 mmol/L [facility] Albumin 4.0 3.5 - 5.0 g/dL [facility] Total Protein 7.6 6.1 - 8.0 g/dL [facility] Bilirubin Total 0.7 0.2 - 1.2 mg/dL [facility] Alkaline Phosphatase 75 40 - 150 U/L [facility] AST 68(H) 5 - 34 U/L [facility] ALT 63(H) 0 - 55 u/L [facility] Blood 08/27/2021 1:19 PM CDT 08/27/2021 1:26 PM CDT Comment:- Narrative [facility] - 08/27/2021 1:49 PM CDT Testing performed at [facility], [address] [place] [address]. CLIA [id number] Phone [phone] Ext [phone] ??It Consulting Director Shant Rivas MD us Carson Wolff MD LAB BLOOD ORDERABLES Veronica alexandre Result [facility] [address] [place] [address] [phone] documented in this encounter Visit Diagnoses [...] documented as of this encounter Care Teams Broke Beater Machine Operator Relationship Specialty Start Date End Date Michell Trevizo MD [facility] [place] [address] PCP - General Internal Medicine 05/29/21 02/25/22 Lacey Perdue MD [address] [phone] Referring Physician Infectious Diseases 06/28/18 documented as of this encounter
--- OUTSIDE RECORDS SUMMARY | 2024-11-23 10:15 | XMS_ITS | Encounter Summary ---
Author Organization [employer] Address [address] [place] [address] Care Team Providers Care Stove Tender Name Role Phone Lacey Perdue MD Unavailable [phone] Michell Trevizo MD Primary Care Provider [phone] Reason for Visit * Reason Comments Establish Care Encounter Details Date Type Department Care Team (Latest Contact Info) Description 05/29/2021 9:30 AM CDT Office Visit [facility] Internal Medicine [address] [place] [address] Michell Trevizo MD [facility] [place] [address] Chronic bilateral low back pain with left-sided sciatica (Primary Dx); Spinal stenosis, unspecified spinal region; Hyperlipidemia, unspecified hyperlipidemia type; custodial current use of opiate analgesic Social History [...] Author No 10/25/2017 2:00 PM Deonna Padilla ENGINEERING AID * Do you have difficulty dressing or bathing? (5 years old or older) Answer Date of Assessment Author No 10/25/2017 2:00 PM Deonna Padilla, ENGINEERING AID * Because of a physical, mental, or [...] 9:30 AM CDT Diclofenac twice a day [place] twice a day if possible (maximum of 4 per day) 1 month follow up with labs documented in this encounter Progress Notes * Michell Trevizo MD - 05/29/2021 9:30 AM CDT General Internal Medicine Patient Note [facility] CC: Chief Complaint Patient presents with ??? Establish Care History of Present Illness: Edilberto Hawley is a 65 y.o. male presenting to clinic to establish care. He was at [place] on Wednesday for concerns for a stroke. He had gone to work and does not remember going,people at work took him to the hospital. He has episodes where he is getting dizzy. If he starts shaking he will eat a bag of candy and that usually helps. He notes a R foot issues that started in [place]. He broke his back in 3 places in 2015 while at work at [employer]. L wrist pain - offered repeat imaging however he said he would follow in pain clinic. Bulging disc as cervical level - shoots pain down both arms. Sees Pain for injections with Dr. Jefferson. He is due to get injections again in 4 weeks. 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 Did not work for a month because [...] Past Medical/Surgical/Family/Social History: Reviewed and updated in [facility] History tab Artificial hip. Medications: Reviewed and updated in [facility] Medications tab Current Outpatient Medications Medication Sig [...] region 3. 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 medMATCH Summary SEE NOTE [facility] Comment: ?Prescribed ?Prescribed ?Not Prescribed ?Consistent ?Inconsistent ?Inconsistent ?Oxycodone ? Aminoclonazepam [OR] Prescribed Drug 1 Oxycodone QU [facility] Comment: [[place]] Testing performed at: [place], [facility] [place], [address] [place], [address], Farm Machinery Erector: Osvaldo Rios D.O., MPH Amphetamines NEGATIVE <500 ng/mL [facility] Comment:[CB] Barbiturates NEGATIVE <300 ng/mL [facility] Comment:[CB] Benzodiazepines POSITIVE(A) <100 ng/mL [facility] Comment:[CB] Alphahydoxyalprazolam NEGATIVE <25 ng/mL [facility] Comment:[CB] Alphahydroxymidazolam NEGATIVE <50 ng/mL [facility] Comment:[CB] Alphahydroxytriazolam NEGATIVE <50 ng/mL [facility] Comment:[CB] Aminoclonazepam 184(H) <25 ng/mL [facility] Comment:[CB] MEDMATCH AMINOCLONAZEPAM INCONSISTENT (A) [facility] Comment:[CB] Hydroxyethylflurazepam NEGATIVE <50 ng/mL [facility] Comment:[CB] Lorazepam NEGATIVE <50 ng/mL [facility] Comment:[CB] Nordiazepam UR Qual NEGATIVE <50 ng/mL [facility] Comment:[CB] Oxazepam UR Qual NEGATIVE <50 ng/mL [facility] Comment:[CB] Temazepam Qual UR NEGATIVE <50 ng/mL [facility] Comment:[CB] Benzodiazepines Comments SEE NOTE [facility] Comment: See Benzodiazepines Notes, LDT Notes [CB] Cocaine Metabolite NEGATIVE <150 ng/mL [facility] Comment:[CB] Marijuana Metabolite NEGATIVE <20 ng/mL [facility] Comment:[CB] Methadone NEGATIVE <100 ng/mL [facility] Comment:[CB] Opiates NEGATIVE <100 ng/mL [facility] Comment:[CB] Oxycodone POSITIVE(A) <100 ng/mL [facility] Comment:[CB] Noroxycodone, UR NEGATIVE <50 ng/mL [facility] Comment:[CB] Oxycodone NEGATIVE <50 ng/mL [facility] Comment:[CB] Oxymorphone 163(H) <50 ng/mL [facility] Comment:[CB] medMATCH Oxymorphone CONSISTENT [facility] Comment:[CB] Oxycodone Comments SEE NOTE [facility] Comment: See Oxycodone Notes, LDT Notes [CB] Phencyclidine NEGATIVE <25 ng/mL [facility] Comment:[CB] Creatinine Urine 210.3 > or = 20.0 mg/dL [facility] Comment:[CB] pH 5.8 4.5 - 9.0 [facility] Comment:[CB] Oxidant NEGATIVE <200 mcg/mL [facility] Comment:[CB] Comments: SEE NOTE [facility] Comment: This drug testing is [...] analytical performance characteristics have been determined by [facility]. It has not been cleared or approved by the FDA. This assay has been validated pursuant to the CLIA regulations and is used for clinical purposes. medMATCH(R) enables providers to identify if drug use is consistent or inconsistent with a corresponding prescribed medication(s) list. Healthcare Providers needing Interpretation assistance, please contact us at [phone] ( ) M-F, 8am to 10pm EST [[place]] Urine specimen (specimen) 05/29/2021 11:38 AM CDT 05/30/2021 5:39 AM CDT Narrative [facility] - 06/01/2021 12:06 PM CDT Testing performed at: [facility] [place], [address] [place], [address], Farm Machinery Erector: Osvaldo Rios D.O., MPH Michell Trevizo MD URINE ORDERABLES Final Result Performing Organization Address [facility] de Phone Number [facility] [address] [place] [address] [phone] * PSA Medicare Screen (05/29/2021 11:38 AM CDT) Pathologist [facility] PSA 0.19 0.00 - 4.00 ng/mL [facility] Comment:Testing performed by Chemiluminescent Microparticle Immunoassay (CMIA) on [employer] I. Blood specimen (specimen) 05/29/2021 11:38 AM CDT 05/29/2021 11:58 AM CDT Comment:- Narrative [facility] - 05/29/2021 5:56 PM CDT Testing performed at [facility], [address] [place] [address]. CLIA [id number] Phone [phone] Ext [phone] ??Farm Machinery Erector Shant Rivas MD us Michell Trevizo MD LAB BLOOD ORDERABLES Final Res ult Performing Organization Address [facility] Co de Phone Number [facility] [address] [place] [address] [phone] * (ABNORMAL) CBC auto differential (05/29/2021 11:38 AM CDT) Pathologist [facility] WBC 15.2(H) 3.1 - 11.0 x10^3/uL [facility] RBC 5.35 4.29 - 5.55 x10^6/uL [facility] HGB 17.3(H) 13.4 - 16.9 g/dL [facility] HCT 51.8(H) 38.0 - 50.0 % [facility] MCV 96.8 82.0 - 98.0 fL [facility] MCH 32.3 27.2 - 33.3 pg [facility] MCHC 33.4 32.0 - 36.0 g/dL [facility] RDW-CV 12.3 11.4 - 14.2 % [facility] SD-RDW 44.0 36.0 - 47.0 fL [facility] Platelets 229 147 - 370 x10^3/uL [facility] MPV 10.6 9.1 - 12.1 fL [facility] NE% 80.1(H) 42.0 - 76.0 % [facility] %LYMPH 13.5 13.5 - 48.0 % [facility] %MONO 5.3 3.5 - 14.0 % [facility] % Eosinophils 0.4 0.0 - 7.0 % [facility] % Basophils 0.3 0.0 - 1.5 % [facility] Imm Gran Relative 0.4 0.0 - 1.0 % [facility] NE# 12.2(H) 1.2 - 7.3 x10^3/uL [facility] Lymphs # 2.1 0.7 - 3.5 x10^3/uL [facility] [place]# 0.8 0.2 - 0.9 x10^3/uL [facility] Eosinophil # 0.1 0.0 - 0.5 x10^3/uL [facility] Baso# 0.1 0.0 - 0.1 x10^3/uL [facility] Imm Gran Absolute 0.06 0.00 - 0.10 x10^3/uL [facility] NRBC % 0.00 0.00 - 0.10 /100 WBC [facility] Blood specimen (specimen) 05/29/2021 11:38 AM CDT 05/29/2021 11:58 AM CDT Comment:- Narrative [facility] - 05/29/2021 4:39 PM CDT Testing performed at [facility], [address] [place] [address]. CLIA [id number] Phone [phone] Ext [phone] ??Farm Machinery Erector Shant Rivas MD Michell Trevizo MD LAB BLOOD ORDERABLES Final Res ult Performing Organization Address [facility] Co de Phone Number [facility] [address] [place] [address] [phone] * Hemoglobin A1c (05/29/2021 11:38 AM CDT) Hemoglobin A1C 6.7 % [facility] Comment: Nondiabetic Patient: ? 4.0 - 6.0 % Controlled Diabetic Patient: ?? < 7.0 % Clinical correlation is essential Estimated Avg Glucose 146 mg/dL [facility] Blood specimen (specimen) 05/29/2021 11:38 AM CDT 05/29/2021 11:58 AM CDT Comment:- Narrative [facility] - 05/29/2021 5:23 PM CDT Testing performed at [facility], [address] [place] [address]. CLIA [id number] Phone [phone] Ext [phone] ??Farm Machinery Erector Shant Rivas MD us Michell Trevizo MD LAB BLOOD ORDERABLES Final Res ult Performing Organization Address [facility] Co de Phone Number [facility] [address] [place] [address] [phone] * Protein / creatinine ratio, urine (05/29/2021 11:38 AM CDT) Protein, UR 12.50 1.00 - 14.00 mg/dL [facility] Creatinine Urine 223.2 mg/dL [facility] Protein/Creat Ratio UR 0.1 0.0 - 0.2 [facility] Urine specimen (specimen) 05/29/2021 11:38 AM CDT 05/29/2021 12:05 PM CDT Comment:- Narrative [facility] - 05/29/2021 5:28 PM CDT Testing performed at [facility], [address] [place] [address]. CLIA [id number] Phone [phone] Ext [phone] ??Farm Machinery Erector Shant Rivas MD Michell Trevizo MD URINE ORDERABLES Final Result Performing Organization Address [facility] Co de Phone Number [facility] [address] [place] [address] [phone] * Microalbumin Urine Random (05/29/2021 11:38 AM CDT) Microalbumin UR 1.53 0.00 - 2.10 mg/dL [facility] Creatinine Urine 223.2 mg/dL [facility] Microalbumin/Crea t Ratio 7 0 - 30 mcg/mg [facility] Urine specimen (specimen) 05/29/2021 11:38 AM CDT 05/29/2021 12:05 PM CDT Comment:- Narrative [facility] - 05/29/2021 5:28 PM CDT Testing performed at [facility], [address] [place] [address]. CLIA [id number] Phone [phone] Ext [phone] ??Farm Machinery Erector Shant Rivas MD us Michell Trevizo MD URINE ORDERABLES Final Result Performing Organization Address [facility] Co de Phone Number [facility] [address] [place] [address] [phone] * TSH (05/29/2021 11:38 AM CDT) TSH 0.870 0.350 - 4.940 uIU/mL [facility] Blood specimen (specimen) 05/29/2021 11:38 AM CDT 05/29/2021 11:58 AM CDT Comment:- Narrative [facility] - 05/29/2021 5:56 PM CDT Testing performed at [facility], [address] [place] [address]. CLIA [id number] Phone [phone] Ext [phone] ??Farm Machinery Erector Shant Rivas MD Michell Trevizo MD LAB BLOOD ORDERABLES Final Res ult [facility] [address] [place] [address], [facility] [phone] * (ABNORMAL) Lipid panel (05/29/2021 11:38 AM CDT) Cholesterol 205(H) 0 - 200 mg/dL [facility] Comment:Cholesterol borderli ne high, 200- 239 mg/dl. Clinical correlation is essential. Triglycerides 137 0 - 200 mg/dL [facility] HDL Cholesterol 52(L) >60 mg/dL [facility] LDL, Calculated 125.6 mg/dL [facility] Comment: <100 ?Optimal 100-129 ? Near Optimal/Above Optimal 130-159 ? Borderline High 160-189 ? High >or =190 ?Very High Cholesterol/HDL Ratio 3.9 [facility] Comment:HDL:Chol ratio Low R isk 1:3.3-1:4.3, Clinical Correlation essential. Blood specimen (specimen) 05/29/2021 11:38 AM CDT 05/29/2021 11:58 AM CDT Comment:- Narrative [facility] - 05/29/2021 6:29 PM CDT Testing performed at [facility], [address] [place] [address]. CLIA [id number] Phone [phone] Ext [phone] ??Farm Machinery Erector Shant Rivas MD us Michell Trevizo MD LAB BLOOD ORDERABLES Final Res ult [facility] [address] [phone] * (ABNORMAL) Comprehensive metabolic panel (05/29/2021 11:38 AM CDT) Glucose 133(H) 60 - 100 mg/dL [facility] Comment: Fasting Plasma Glucose (FPG) ?<100 MG/DL Impaired Fasting Glucose (IFG) ? 100-125 MG/DL Provisional Diagnosis of Diabetes Mellitus ?? > or = 126 MG/DL (Diagnosis Must Be Confirmed) BUN 21 8 - 26 mg/dL [facility] Creatinine 0.8 0.7 - 1.4 mg/dL [facility] Glomerular Filtration Rate Estimate 92 >80 mL/min/1.7 3mm2 [facility] Glomerular Filtration Rate Estimate- 106 >80 mL/min/1.7 3mm2 [facility] Comment:The estimated GFR george s not been validated for women or patients with serious comorbid conditions, or with extremes of body size, muscle mass, or nutritional status. Calcium 9.3 8.4 - 10.2 mg/dL [facility] Sodium 137 136 - 145 mmol/L [facility] Potassium 4.0 3.4 - 4.9 mmol/L [facility] Chloride 104 99 - 111 mmol/L [facility] CO2 23.7 21.0 - 32.0 mmol/L [facility] Albumin 4.2 3.5 - 5.0 g/dL [facility] Total Protein 7.5 6.1 - 8.0 g/dL [facility] Bilirubin Total 0.4 0.2 - 1.2 mg/dL [facility] Alkaline Phosphatase 87 40 - 150 U/L [facility] AST 103(H) 5 - 34 U/L [facility] ALT 164(H) 0 - 55 u/L [facility] Blood specimen (specimen) 05/29/2021 11:38 AM CDT 05/29/2021 11:58 AM CDT Comment:- Narrative [facility] - 05/29/2021 6:29 PM CDT Testing performed at [facility], [address] [place] [address]. CLIA [id number] Phone [phone] Ext [phone] ??Farm Machinery Erector Shant Rivas MD Michell Trevizo MD LAB BLOOD ORDERABLES Final Res ult [employer] [facility] [address] [place] [address] [phone] documented in this encounter Visit Diagnoses Diagnosis Chronic bilateral low back pain with left-sided sciatica- Primary Spinal stenosis, unspecified spinal region Hyperlipidemia, unspecified hyperlipidemia type custodial current use of opiate analgesic Encounter for long-term (current) use of other medications documented in this encounter Additional Health Concerns Assessment Noted Time A fall risk assessment has been complete d for the patient 04/16/2021 8:08 AM CDT documented as of this encounter Care Teams Stove Tender Relationship Specialty Start Date End Date Michell Trevizo MD [address] [place] [address] PCP - General Internal Medicine 05/29/21 02/25/22 Lacey Perdue MD [address] [phone] Referring Physician Infectious Diseases 06/28/18 documented as of this encounter
--- OUTSIDE RECORDS SUMMARY | 2024-11-23 10:15 | XMS_ITS | Encounter Summary ---
Author Organization [employer] Address [address] [place] [address] Care Team Providers Care Edger Operator Name Role Phone Lacey Perdue MD Unavailable [phone] Leonard Jasso APRN Primary Care Provide r Reason for Visit * Reason Comments Medication Refill Encounter Details Date Type Department Care Team (Late st Contact Info) Description 03/10/[address] [address] Leonard Jasso, ANGIE [address] [place] [address] Social History Tobacco Use Types Packs/Day [...] of Assessment Author No 10/25/2017 2:00 PM BOOKKEEPING MANAGER Galvan, Am y S, MANAGER WORKERS COMPENSATION * Are you blind or do you have serious difficulty seeing, even when wearing glasses? Answer Date of Assessment Author No 10/25/2017 2:00 PM BOOKKEEPING MANAGER Galvan, Am y S, MANAGER WORKERS COMPENSATION * Do you have serious difficulty walking or climbing stairs? (5 years old or older) Answer Date of Assessment Author No 10/25/2017 2:00 PM BOOKKEEPING MANAGER Galvan, Am y S, MANAGER WORKERS COMPENSATION * Do you have difficulty dressing or bathing? (5 years old or older) Answer Date of Assessment Author No 10/25/2017 2:00 PM BOOKKEEPING MANAGER Galvan, Am y S, MANAGER WORKERS COMPENSATION * Because of a physical, mental, or emotional condition, do you have difficulty doing errands alone such as visiting a doctor's office or shopping? (15 years old or older) Answer Date of Assessment Author No 10/25/2017 2:00 PM BOOKKEEPING MANAGER Galvan, Am y S, MANAGER WORKERS COMPENSATION documented as of this encounter Mental Status * Because of a physical, mental, or emotional condition, do you have serious difficulty concentrating, remembering, or making decisions? (5 years old or older) Answer Entry Date Author No 10/25/2017 2:00 PM BOOKKEEPING MANAGER Galvan, Am y S, MANAGER WORKERS COMPENSATION documented in this encounter Plan of Treatment Not on file documented as of this encounter Goals Goal Patient Goal Type Associated Problems Recent Progress Patient-Stated? Author Blood Pressure < 140/90 Blood Pressure 134/86(2022 2:25 PM CDT) No Leonard Jasso APRN documented as of this encounter Visit Diagnoses Not on filedocumented in this encounter Care Teams Edger Operator Relationship Specialty Start Date End Date Leonard Jasso APRN [address] [facility] [address] [place] [address] PCP - General Family Medicine 08/15/19 04/30/21 Lacey Perdue MD [address] [phone] Referring Physician Infectious Diseases 06/28/18 documented as of this encounter
--- OUTSIDE RECORDS SUMMARY | 2024-11-23 10:15 | XMS_ITS | Encounter Summary ---
Author Organization [employer] Address [address] [place] [address] Care Team Providers Care Medical Editor Name Role Phone Lacey Perdue MD Unavailable [phone] Leonard Jasso APRN Primary Care Provide r Reason for Referral * Referral (Routine) - Closed Specialty Diagnoses / Procedures Referred By Celine almaguer Referred To Contact Pain Medicine Diagnoses Bulging of cervical intervertebral disc Leonard Jasso APRN [address] [place] [address] Phone: tel: fax: Edilberto Gann MD [address] [place] [address] Phone: tel: fax: Referral ID Status Reason Start Date Expiration Date V isits Requested Visits Authorized [id number] Closed Specialty Services Required 03/14/2021 03/14/2022 1 1 Encounter Details Date Type Department Care Team (Late st Contact Info) Description 03/14/2021 Orders Only [facility] [address] [place], [place] [address] Svetlana Rodgers, FLOORMAN [address] [facility] [address] [place] [address] Bulging of cervical intervertebral disc [...] Author No 10/25/2017 2:00 PM Deonna Padilla, SOUND INSTALLATION WORKER * Are you blind or do you have serious difficulty seeing, even when wearing glasses? Answer Date of Assessment Author No 10/25/2017 2:00 PM Deonna Padilla, SOUND INSTALLATION WORKER * Do you have serious difficulty walking or climbing stairs? (5 years old or older) Answer Date of Assessment Author No 10/25/2017 2:00 PM Deonna Padilla, SOUND INSTALLATION WORKER * Do you have difficulty dressing or bathing? (5 years old or older) Answer Date of Assessment Author No 10/25/2017 2:00 PM Deonna Padilla, SOUND INSTALLATION WORKER * Because of a physical, mental, [...] Primary documented in this encounter Care Teams Medical Editor Relationship Specialty Start Date End Date Leonard Jasso APRN [address] [facility] [address] [place] [address] PCP - General Family Medicine 08/15/19 04/30/21 Lacey Perdue MD [address] [phone] Referring Physician Infectious Diseases 06/28/18 documented as of this encounter
--- OUTSIDE RECORDS SUMMARY | 2024-11-23 10:15 | XMS_ITS | Encounter Summary ---
Author Organization [employer] Address [address] [place] [address] Care Team Providers Care Auto Damage Estimator Name Role Phone Lacey Perdue MD Unavailable [phone] Leonard Jasso APRN Primary Care Provide r Reason for Visit * Reason Comments New Patient * Referral (Routine) - Closed Specialty Diagnoses / Procedures Referred By Contjessica t Referred To Contact Pain Medicine Diagnoses Bulging of cervical intervertebral disc Leonard Jasso, GUN WELDER [address] [place] [address] Phone: tel: fax: Edilberto Gann MD [address] [place] [address] Phone: tel: fax: Referral ID Status Reason Start Date Expiration Date V isits Requested Visits Authorized [id number] Closed Specialty Services Required 03/14/2021 03/14/2022 1 1 Encounter Details Date Type Department Care Team (Late st Contact Info) Description 04/16/2021 7:45 AM CDT Office Visit [facility] [address] [place] [phone] Leonard Jasso, GUN WELDER [address] [place] [address] Emmanuel Jefferson, ALFONSO [address] [place] [address] Myofascial muscle pain (Primary Dx); Cervicalgia; Cervical [...] Patient Instructions * Patient Instructions* Emmanuel Jefferson, YARD LOADER OPERATOR - 04/16/2021 7:45 AM CDT Images from the original note were not included. Pre Procedure Checklist Dear Patient, Before you have a procedure at [facility], please take note of the following items: SQUEEGEER AND FORMER You must have a short haul driver accompany you at the time of the discharge from the clinic, as you will not be able to drive or operate machinery for 6 hours after the procedure. IF YOU DO NOT HAVE A SQUEEGEER AND FORMER, YOU WILL BE ASKED TO RESCHEDULE! INFECTION [...] any questions, please contact the clinic at [phone] ext. [phone]. 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 Consider referral to [facility] Behavioral Health RESIDENTIAL BUILDER, for evaluation of opiate risk and any [...] this patient. This document was dictated using NovoDynamics; radiology transcriptionist variances may occur * Edilberto Gann MD [...] as of this encounter Care Teams Auto Damage Estimator Relationship Specialty Start Date End Date Leonard Jasso ANGIE [address] [facility] [address] [place] [address] PCP - General Family Medicine 08/15/19 04/30/21 Lacey Perdue MD [address] [address] Referring Physician Infectious Diseases 06/28/18 documented as of this encounter
--- OUTSIDE RECORDS SUMMARY | 2024-11-23 10:15 | XMS_ITS | Encounter Summary ---
Author Organization [employer] Address [address] [place] [address] Care Team Providers Care Pack Worker Name Role Phone Lacey Perdue MD Unavailable [phone] Michell Trevizo MD Primary Care Provider [phone] Reason for Visit * Reason Comments Pre-op Exam Encounter Details Date Type Department Care Team (Latest Contact Info) Description 08/27/2021 10:25 AM CDT Clinical Support [facility] [address] [place] [address] Carson Wolff MD [address] [place] [address] Radha Chandler, RTR [address] [place] [address] Pre-operative exam Social History Tobacco [...] of Assessment Author No 10/25/2017 2:00 PM DOLPHIN TRAINER Cole Am y S, [place] PASTE MOLDER * Are you blind or do you have serious difficulty seeing, even when wearing glasses? Answer Date of Assessment Author No 10/25/2017 2:00 PM DOLPHIN TRAINER Galvan, Am y S, [place] PASTE MOLDER * Do you have serious difficulty walking or climbing stairs? (5 years old or older) Answer Date of Assessment Author No 10/25/2017 2:00 PM DOLPHIN TRAINER Galvan, Am y S, [place]D PASTE MOLDER * Do you have difficulty dressing or bathing? (5 years old or older) Answer Date of Assessment Author No 10/25/2017 2:00 PM DOLPHIN TRAINER Galvan, Am y S, [place] PASTE MOLDER * Because of a physical, mental, or emotional condition, do you have difficulty doing errands alone such as visiting a doctor's office or shopping? (15 years old or older) Answer Date of Assessment Author No 10/25/2017 2:00 PM DOLPHIN TRAINER Galvan, Am y S, [place] PASTE MOLDER documented as of this encounter Mental Status * Because of a physical, mental, or emotional condition, do you have serious difficulty concentrating, remembering, or making decisions? (5 years old or older) Answer Entry Date Author No 10/25/2017 2:00 PM DOLPHIN TRAINER Galvan, Am y S, AL[place] PASTE MOLDER documented in this encounter Plan of Treatment [...] CDT) 08/27/2021 11:3 0 AM CDT Narrative [facility] - 08/27/2021 10:50 AM CDT Vent Rate: 66 bpm RR Interval: 902 msec ND Interval: 199 msec QRS Duration: 98 msec QT Interval: 377 msec QTC Interval: 391 msec P-R-T Carlton: 49 - -41 - 53 degrees IMPRESSION: SINUS RHYTHM CONSIDER LEFT ATRIAL ABNORMALITY LEFT AXIS DEVIATION [QRS AXIS < -30] BORDERLINE EKG Electronically Signed By: Sohan Andrade Procedure Note Sohan Andrade MD - 08/27/2021 Vent Rate: 66 bpm RR Interval: 902 msec ND Interval: 199 msec QRS Duration: 98 msec QT Interval: 377 msec QTC Interval: 391 msec P-R-T Carlton: 49 - -41 - 53 degrees IMPRESSION: SINUS RHYTHM CONSIDER LEFT ATRIAL ABNORMALITY LEFT AXIS DEVIATION [QRS AXIS < -30] BORDERLINE EKG Electronically Signed By: Sohan Andrade us Carson Wolff MD ECG ORDERABLES Final Res ult Performing Organization Address City/State/[facility] Co de Phone Number [facility] documented in this encounter Visit Diagnoses Diagnosis Pre-operative exam Preoperative examination, unspecified documented in this encounter Additional Health Concerns Assessment Noted Time A fall risk assessment has been complete d for the patient 08/27/2021 11:36 AM CDT A Body Mass Index follow-up plan has been documented for the patient 06/30/2021 12:12 PM CDT documented as of this encounter Care Teams Pack Worker Relationship Specialty Start Date End Date Michell Trevizo MD [address] [place] [address] PCP - General Internal Medicine 05/29/21 02/25/22 Lacey Perdue MD [address] [address] Referring Physician Infectious Diseases 06/28/18 documented as of this encounter
--- OUTSIDE RECORDS SUMMARY | 2024-11-23 10:15 | XMS_ITS | Encounter Summary ---
Author Organization [employer] Address [address] [place] [address] Care Team Providers Care University Controller Name Role Phone Lacey Perdue MD Unavailable [phone] Michell Trevizo MD Primary Care Provider [phone] Encounter Details Date Type Department Care Team [...] Assessment Author No 10/25/2017 2:00 PM KENNEL ASSISTANT Galvan, Am y S, FINANCIAL PLANNING ASSISTANT * Do you have serious difficulty walking or climbing stairs? (5 years old or older) Answer Date of Assessment Author No 10/25/2017 2:00 PM Deonna Padilla S, FINANCIAL PLANNING ASSISTANT * Do you have difficulty dressing or bathing? (5 years old or older) Answer Date of Assessment Author No 10/25/2017 2:00 PM JOHN Galvan Am y S, FINANCIAL PLANNING ASSISTANT * Because of a physical, mental, or emotional condition, do you have difficulty doing errands alone such as visiting a doctor's office or shopping? (15 years old or older) Answer Date of Assessment Author No 10/25/2017 2:00 PM JOHN Galvan Am y S, FINANCIAL PLANNING ASSISTANT documented as of this encounter Mental Status * Because of a physical, mental, or emotional condition, do you have serious difficulty concentrating, remembering, or making decisions? (5 years old or older) Answer Entry Date Author No 10/25/2017 2:00 PM Deonna Padilla S, FINANCIAL PLANNING ASSISTANT documented in this encounter Plan of [...] documented as of this encounter Care Teams University Controller Relationship Specialty Start Date End Date Michell Trevizo MD [facility] [place] [address] PCP - General Internal Medicine 05/29/21 02/25/22 Lacey Perdue MD [address] [phone] Referring Physician Infectious Diseases 06/28/18 documented as of this encounter
--- OUTSIDE RECORDS SUMMARY | 2024-11-23 10:15 | XMS_ITS | Encounter Summary ---
Author Organization [employer] Address [address] [place] [address] Care Team Providers Care Production Superintendent Name Role Phone Lacey Perdue MD Unavailable [phone] Michell Trevizo MD Primary Care Provider [phone] Encounter Details Date Type Department Care Team [...] of Assessment Author No 10/25/2017 2:00 PM SVP CHIEF MARKETING OFFICER Galvan, Am y S, QUALITY ASSURANCE INTERN * Do you have serious difficulty walking or climbing stairs? (5 years old or older) Answer Date of Assessment Author No 10/25/2017 2:00 PM Deonna Padilla S, QUALITY ASSURANCE INTERN * Do you have difficulty dressing or bathing? (5 years old or older) Answer Date of Assessment Author No 10/25/2017 2:00 PM JOHN Galvan Am y S, QUALITY ASSURANCE INTERN * Because of a physical, mental, or emotional condition, do you have difficulty doing errands alone such as visiting a doctor's office or shopping? (15 years old or older) Answer Date of Assessment Author No 10/25/2017 2:00 PM JOHN Galvan Am y S, QUALITY ASSURANCE INTERN documented as of this encounter Mental Status * Because of a physical, mental, or emotional condition, do you have serious difficulty concentrating, remembering, or making decisions? (5 years old or older) Answer Entry Date Author No 10/25/2017 2:00 PM Deonna Padilla S, QUALITY ASSURANCE INTERN documented in this encounter Plan of [...] as of this encounter Care Teams Production Superintendent Relationship Specialty Start Date End Date Michell Trevizo MD [facility] [place] [address] PCP - General Internal Medicine 05/29/21 02/25/22 Lacey Perdue MD [address] [phone] Referring Physician Infectious Diseases 06/28/18 documented as of this encounter
--- OUTSIDE RECORDS SUMMARY | 2024-11-23 10:15 | XMS_ITS | Encounter Summary ---
Author Organization [employer] Address [address] [place] [address] Care Team Providers Care Glass Pulverizer Equipment Operator Name Role Phone Lacey Perdue MD Unavailable [phone] Michell Trevizo MD Primary Care Provider [phone] Reason for Visit * Reason Comments Follow-up Encounter Details Date Type Department Care Team (Late st Contact Info) Description 06/24/2021 9:15 AM CDT Office Visit [facility] [address] [place] [address] Emmanuel Jefferson, CLINICAL SOCIAL WORKER [address] [place] [address] Cervical spondylosis without myelopathy (Primary Dx); [...] 2:00 PM JOHN Galvan Am y S, WELDING LEAD BURNER * Are you blind or do you have serious difficulty seeing, even when wearing glasses? Answer Date of Assessment Author No 10/25/2017 2:00 PM Deonna Padilla S, WELDING LEAD BURNER * Do you have serious difficulty walking or climbing stairs? (5 years old or older) Answer Date of Assessment Author No 10/25/2017 2:00 PM REPAIR ORDER CLERK Deonna aGlvan y S, WELDING LEAD BURNER * Do you have difficulty dressing or bathing? (5 years old or older) Answer Date of Assessment Author No 10/25/2017 2:00 PM REPAIR ORDER CLERK Cole Am y S, WELDING LEAD BURNER * Because of a physical, mental, or emotional condition, do you have difficulty doing errands alone such as visiting a doctor's office or shopping? (15 years old or older) Answer Date of Assessment Author No 10/25/2017 2:00 PM REPAIR ORDER CLERK Deonna Galvan y S, WELDING LEAD BURNER documented as of this encounter Mental Status * Because of a physical, mental, or emotional condition, do you have serious difficulty concentrating, remembering, or making decisions? (5 years old or older) Answer Entry Date Author No 10/25/2017 2:00 PM REPAIR ORDER CLERK Cole Am y S, WELDING LEAD BURNER documented in this encounter Patient Instructions * Patient Instructions* Emmanuel Jefferson NP - 06/24/2021 9:15 AM CDT Images from the original note were not included. Pre Procedure Checklist Dear Patient, Before you have a procedure at [facility], please note the following: SENIOR SALES DIRECTOR You must have a piledriver carpenter accompany you at the time of the discharge from the clinic, as you will not be able to drive or operate machinery for 6 hours after the procedure. IF YOU DO NOT HAVE A SENIOR SALES DIRECTOR, YOU WILL BE ASKED TO RESCHEDULE. INFECTION [...] any questions, please contact the clinic at [phone] ext. [phone]. Thank you , Interventional Spine and Joint [...] patient and prescriber. Consider referral to [facility] Behavioral Health DIALS SUPERVISOR, for evaluation of opiate risk and any [...] this patient. This document was dictated using [email or web address]; jackerman variances may occur * Edilberto Gann MD [...] documented as of this encounter Care Teams Glass Pulverizer Equipment Operator Relationship Specialty Start Date End Date Michell Trevizo MD [facility] [place] [address] PCP - General Internal Medicine 05/29/21 02/25/22 Lacey Perdue MD [address] [place] [phone] Referring Physician Infectious Diseases 06/28/18 documented as of this encounter
--- OUTSIDE RECORDS SUMMARY | 2024-11-23 10:15 | XMS_ITS | Encounter Summary ---
Author Organization [employer] Address [address] [place] [address] Care Team Providers Care Yard Operator Name Role Phone Lacey Perdue MD Unavailable [phone] Patient, None Per Primary Care Provider Unavaila Michell Abdi MD Primary Care Provider Encounter Details Date Type Department Care Team (Latest Contact Info) Description 05/14/2021 1:30 PM CDT Clinical Support [facility] [address] [place] [address] Theodora Dangelo, MILL TENDER SECOND OPERATOR [address] [place] [address] Oropharyngeal dysphagia (Primary Dx) Social [...] Author No 10/25/2017 2:00 PM Deonna Padilla, PERSONAL CLOTHING LAUNDRY AIDE * Are you blind or do you have serious difficulty seeing, even when wearing glasses? Answer Date of Assessment Author No 10/25/2017 2:00 PM Deonna Padilla, PERSONAL CLOTHING LAUNDRY AIDE * Do you have serious difficulty walking or climbing stairs? (5 years old or older) Answer Date of Assessment Author No 10/25/2017 2:00 PM Deonna Padilla, PERSONAL CLOTHING LAUNDRY AIDE * Do you have difficulty dressing or bathing? (5 years old or older) Answer Date of Assessment Author No 10/25/2017 2:00 PM Deonna Padilla, PERSONAL CLOTHING LAUNDRY AIDE * Because of a physical, mental, or emotional condition, do you have difficulty doing errands alone such as visiting a doctor's office or shopping? (15 years old or older) Answer Date of Assessment Author No 10/25/2017 2:00 PM Deonna Padilla, PERSONAL CLOTHING LAUNDRY AIDE documented as of this encounter Mental Status * Because of a physical, mental, or emotional condition, do you have serious difficulty concentrating, remembering, or making decisions? (5 years old or older) Answer Entry Date Author No 10/25/2017 2:00 PM Deonna Padilla ARNP documented in this encounter Progress Notes * Theodora Dangelo, MILL TENDER SECOND OPERATOR - 05/14/2021 1:30 PM CDT Study Desc: SWALLOWING FUNCTION [facility] PATIENT NAME: Edilberto Hawley : 1955 DATE OF EVALUATION: 05/14/2021 REFERRING PHYSICIAN: Dr. New MD PMH: Past Medical History: Diagnosis Date ??? Arthritis ??? Back injury ??? Chronic back pain greater than 3 months duration ??? GERD (gastroesophageal reflux disease) ??? Migraines ??? Osteomyelitis of ankle or foot, acute, right (HCC) 2018 Stepped on nail ??? Shoulder injury ??? Substance abuse ([facility]) cocaine, crystal meth nothing since 1996 ??? [...] of left rotator cuff ??? Hyperlipidemia ??? jail current use of opiate analgesic ??? Osteoarthritis [...] however his voice sounded WNL to this MILL TENDER SECOND OPERATOR. Slight hoarseness noted only. CLINICAL OBSERVATIONS AND [...] using slight head back posture throughout VFSS. MILL TENDER SECOND OPERATOR asked why pt was in this position [...] for this referral. Please contact me at [phone] ext. [phone] or e- mail at [email or web address] with any questions or concerns regarding this evaluation or plan of care. Professionally, Theodora Dangelo M.A. [facility]-MILL TENDER SECOND OPERATOR * Carson Wolff MD - 05/14/2021 1:30 [...] documented as of this encounter Care Teams Yard Operator Relationship Specialty Start Date End Date Patient, None Per PCP - General 05/01/21 05/28/21 Michell Trevizo MD [facility] [place] [address] PCP - General Internal Medicine 05/29/21 02/25/22 Lacey Perdue MD [address] [place] [phone] Referring Physician Infectious Diseases 06/28/18 documented as of this encounter
--- OUTSIDE RECORDS SUMMARY | 2024-11-23 10:15 | XMS_ITS | Encounter Summary ---
Author Organization [employer] Address [address] [place] [address] Care Team Providers Care Trombone Slide Assembler Name Role Phone Lacey Perdue MD Unavailable [phone] Leonard Jasso APRN Primary Care Provide [...] 2:00 PM JOHN Galvan Am y S, KOSHER SEALER * Do you have difficulty dressing or bathing? (5 years old or older) Answer Date of Assessment Author No 10/25/2017 2:00 PM JOHN Galvan Am y S, KOSHER SEALER * Because of a physical, mental, or emotional condition, do you have difficulty doing errands alone such as visiting a doctor's office or shopping? (15 years old or older) Answer Date of Assessment Author No 10/25/2017 2:00 PM JOHN Galvan Am y S, KOSHER SEALER documented as of this encounter Mental Status * Because of a physical, mental, or emotional condition, do you have serious difficulty concentrating, remembering, or making decisions? (5 years old or older) Answer Entry Date Author No 10/25/2017 2:00 PM JOHN Galvan Am y S, KOSHER SEALER documented in this encounter Plan of Treatment Not on file documented as of this encounter Goals Goal Patient Goal Type Associated Problems Recent Progress Patient-Stated? Author Blood Pressure < 140/90 Blood Pressure 134/86(2022 2:25 PM CDT) No Leonard Jasso APRN documented as of this encounter Visit Diagnoses Not on filedocumented in this encounter Care Teams Trombone Slide Assembler Relationship Specialty Start Date End Date Leonard Jasso APRN [address] [facility] [address] [place] [address] PCP - General Family Medicine 08/15/19 04/30/21 Lacey Perdue MD [address] [phone] Referring Physician Infectious Diseases 06/28/18 documented as of this encounter
--- OUTSIDE RECORDS SUMMARY | 2024-11-23 10:15 | XMS_ITS | Encounter Summary ---
Author Organization [email or web address] Address [address] [place] [address] Care Team Providers Care Emblem Cutter Name Role Phone Lacey Perdue MD Unavailable [phone] Leonard Jasso APRN Primary Care Provide r Reason for Visit * Reason Comments Sinus Problem * Referral (Routine) - Closed Specialty Diagnoses / Procedures Referred By Contjessica t Referred To Contact Otolaryngology Diagnoses Dysphasia Leonard Jasso, AD OPERATIONS COORDINATOR [address] [place] [address] Phone: tel: fax: Carson Wolff MD [address] [place] [address] Phone: tel: fax: Referral ID Status Reason Start Date Expiration Date V isits Requested Visits Authorized [id number] Closed Specialty Services Required 01/29/2021 01/29/2022 1 1 Encounter Details Date Type Department Care Team (Late st Contact Info) Description 04/07/2021 2:30 PM CDT Initial consult [facility] - ENT [address] [place] [address] [address] [place] [address] Leonard Jasso, AD OPERATIONS COORDINATOR [address] [place] [address] Carson Wolff MD [address] [place] [address] Sinusitis, unspecified chronicity, unspecified location [...] Author No 10/25/2017 2:00 PM Deonna Padilla, APPLICATIONS TESTER * Do you have serious difficulty walking or climbing stairs? (5 years old or older) Answer Date of Assessment Author No 10/25/2017 2:00 PM Deonna Padilla, APPLICATIONS TESTER * Do you have difficulty dressing or bathing? (5 years old or older) Answer Date of Assessment Author No 10/25/2017 2:00 PM Deonna Padilla, APPLICATIONS TESTER * Because of a physical, mental, or [...] of left rotator cuff ??? Hyperlipidemia ??? watermaster current use of opiate analgesic ??? Osteoarthritis of lumbar spine ??? Pain of left lower extremity ??? Sciatica Past Medical History: Diagnosis Date ??? Arthritis ??? Back injury ??? Chronic back pain greater than 3 months duration ??? GERD (gastroesophageal reflux disease) ??? Migraines ??? Osteomyelitis of ankle or foot, acute, right ([facility]) 2018 Stepped on nail ??? Shoulder injury ??? Substance abuse ([facility]) cocaine, crystal meth nothing [...] wo Contrast; Future Dysphagia, unspecified type - BARREL TESTER-Video swallow study; Future Gastroesophageal reflux disease, unspecified [...] Maxillofacial wo Contrast 2. Dysphagia, unspecified type BARREL TESTER-Video swallow study 3. Gastroesophageal reflux disease, unspecified whether esophagitis present 4. Recurrent sinusitis 5. Nasal septal deviation 6. Hypertrophy of both inferior nasal turbinates 7. Tinnitus of both ears Plan: - Maximal medical therapy (oral antihistamine, nasal steroid spray, saline sinus lavages) - Augmentin twice daily for 21 days - [facility] beam CT 6 weeks - Follow up in [place] with audio/tymps first (30 min) - Referral for swallow study, to be done in [place] Carson Wolff M.D., Ph.D. Pediatric and General Otolaryngology [facility] documented in this encounter Plan of [...] tinnitus documented in this encounter Care Teams Emblem Cutter Relationship Specialty Start Date End Date Leonard Jasso APRN [address] [facility] [address] [place] [address] PCP - General Family Medicine 08/15/19 04/30/21 Lacey Perdue MD [address] [phone] Referring Physician Infectious Diseases 06/28/18 documented as of this encounter
--- OUTSIDE RECORDS SUMMARY | 2024-11-23 10:15 | XMS_ITS | Encounter Summary ---
Author Organization [employer] Address [address] [place] [address] Care Team Providers Care Career Professional Name Role Phone Lacey Perdue MD Unavailable [phone] Leonard Jasso APRN Primary Care Provide r Reason for Visit * Reason Comments Medication Refill Encounter Details Date Type Department Care Team (Late st Contact Info) Description 04/07/[address] [address] Leonard Jasso, ANGIE [address] [place] [address] Social History Tobacco Use Types Packs/Day [...] Author No 10/25/2017 2:00 PM Deonna Padilla, ELEMENTARY SCHOOL ART TEACHER * Are you blind or do you have serious difficulty seeing, even when wearing glasses? Answer Date of Assessment Author No 10/25/2017 2:00 PM Deonna Padilla, ELEMENTARY SCHOOL ART TEACHER * Do you have serious difficulty walking or climbing stairs? (5 years old or older) Answer Date of Assessment Author No 10/25/2017 2:00 PM Deonna Padilla, ELEMENTARY SCHOOL ART TEACHER * Do you have difficulty dressing or bathing? (5 years old or older) Answer Date of Assessment Author No 10/25/2017 2:00 PM Deonna Padilla, ELEMENTARY SCHOOL ART TEACHER * Because of a physical, mental, or emotional condition, do you have difficulty doing errands alone such as visiting a doctor's office or shopping? (15 years old or older) Answer Date of Assessment Author No 10/25/2017 2:00 PM Deonna Padilla, ELEMENTARY SCHOOL ART TEACHER documented as of this encounter Mental [...] on filedocumented in this encounter Care Teams Career Professional Relationship Specialty Start Date End Date Leonard Jasso APRN [address] [facility] [address] [place] [address] PCP - General Family Medicine 08/15/19 04/30/21 Lacey Perdue MD [address] [phone] Referring Physician Infectious Diseases 06/28/18 documented as of this encounter
--- OUTSIDE RECORDS SUMMARY | 2024-11-23 10:15 | XMS_ITS | Encounter Summary ---
Author Organization [employer] Address [address] [place] [address] Care Team Providers Care Veterinarian Helper Name Role Phone Lacey Perdue MD Unavailable [phone] Michell Trevizo MD Primary Care Provider Encounter [...] of Assessment Author No 10/25/2017 2:00 PM MAINFRAME SOFTWARE DEVELOPER Galvan, Am y S, TUBE BALANCER * Do you have serious difficulty walking or climbing stairs? (5 years old or older) Answer Date of Assessment Author No 10/25/2017 2:00 PM Deonna Padilla S, TUBE BALANCER * Do you have difficulty dressing or bathing? (5 years old or older) Answer Date of Assessment Author No 10/25/2017 2:00 PM JOHN Galvan Am y S, TUBE BALANCER * Because of a physical, mental, or emotional condition, do you have difficulty doing errands alone such as visiting a doctor's office or shopping? (15 years old or older) Answer Date of Assessment Author No 10/25/2017 2:00 PM JOHN Galvan Am y S, TUBE BALANCER documented as of this encounter Mental Status * Because of a physical, mental, or emotional condition, do you have serious difficulty concentrating, remembering, or making decisions? (5 years old or older) Answer Entry Date Author No 10/25/2017 2:00 PM Deonna Padilla S, TUBE BALANCER documented in this encounter Plan of Treatment [...] documented as of this encounter Care Teams Veterinarian Helper Relationship Specialty Start Date End Date Michell Trevizo MD [facility] [place] [address] PCP - General Internal Medicine 05/29/21 02/25/22 Lacey Perdue MD [address] [phone] Referring Physician Infectious Diseases 06/28/18 documented as of this encounter
--- OUTSIDE RECORDS SUMMARY | 2024-11-23 10:15 | XMS_ITS | Encounter Summary ---
Author Organization [employer] Address [address] [place] [address] Care Team Providers Care Residential Team Leader Name Role Phone Lacey Perdue MD Unavailable [phone] Michell Trevizo MD Primary Care Provider [phone] Reason for Visit * Reason Comments Follow-up 4 weeks Encounter Details Date Type Department Care Team (Latest Contact Info) Description 07/28/2021 9:15 AM CDT Office Visit [facility] Internal Medicine [address] [place] [phone] Michell Trevizo MD [address] [place] [address] Encounter for long-term current use of medication (Primary Dx); Chronic bilateral low back pain with left-sided sciatica; Spinal stenosis, unspecified spinal region; Hyperlipidemia, unspecified hyperlipidemia type; long term care administrator current use of opiate analgesic; Herniation of [...] Author No 10/25/2017 2:00 PM Deonna Padilla, CHURN TENDER * Are you blind or do you have serious difficulty seeing, even when wearing glasses? Answer Date of Assessment Author No 10/25/2017 2:00 PM Deonna Padilla, CHURN TENDER * Do you have serious difficulty walking or climbing stairs? (5 years old or older) Answer Date of Assessment Author No 10/25/2017 2:00 PM Deonna Padilla, CHURN TENDER * Do you have difficulty dressing or bathing? (5 years old or older) Answer Date of Assessment Author No 10/25/2017 2:00 PM Deonna Padilla, CHURN TENDER * Because of a physical, mental, or emotional condition, do you have difficulty doing errands alone such as visiting a doctor's office or shopping? (15 years old or older) Answer Date of Assessment Author No 10/25/2017 2:00 PM Deonna Padilla, CHURN TENDER documented as of this encounter Mental Status * Because of a physical, mental, or emotional condition, do you have serious difficulty concentrating, remembering, or making decisions? (5 years old or older) Answer Entry Date Author No 10/25/2017 2:00 PM Deonna Padilla, CHURN TENDER documented in this encounter Patient Instructions * Patient Instructions* Michell Trevizo MD - 07/28/2021 9:15 AM CDT A1C, and remaining labwork today including drug panel. documented in this encounter Progress Notes * Michell Trevizo MD - 07/28/2021 9:15 AM CDT General Internal Medicine Patient Note [facility] CC: Chief Complaint Patient presents with [...] to ensure there are no longer present. Estill rings and candy is his problem, but he has cut back. Trying to avoid sugars. Drinks strawberry kiwi snapples. Advised that if his diabetes numbers continue to be elevated I would recommend starting a medication. ROS: Pertinent positives and negatives as mentioned in HPI Past Medical/Surgical/Family/Social History: Reviewed and updated in [facility] History tab Medications: Reviewed and updated in [facility] Medications tab Current Outpatient Medications [...] region 4. Hyperlipidemia, unspecified hyperlipidemia type 5. long term care administrator current use of opiate analgesic 6. Herniation [...] 9:51 AM CDT) Hemoglobin A1C 6.7 % [facility] Comment: Nondiabetic Patient: ? 4.0 - 6.0 % Controlled Diabetic Patient: ?? < 7.0 % Clinical correlation is essential Estimated Avg Glucose 146 mg/dL [facility] Blood 07/28/2021 9:51 AM CDT 07/28/2021 10:33 AM CDT Comment:- Narrative [facility] - 07/28/2021 11:00 AM CDT Testing performed at [facility], [address] [place] [address]. CLIA [id number] Phone [phone] Ext [phone] ??Animal Rescuer Shant Rivas MD us Michell Trevizo MD LAB BLOOD ORDERABLES Final Res ult [facility] [address] [place] [address] [phone] documented in this encounter Visit Diagnoses Diagnosis Encounter for long-term current use of medication- Primary Chronic bilateral low back pain with left-sided sciatica Spinal stenosis, unspecified spinal region Hyperlipidemia, unspecified hyperlipidemia type long term care administrator current use of opiate analgesic Encounter for [...] documented as of this encounter Care Teams Residential Team Leader Relationship Specialty Start Date End Date Michell Trevizo MD [address] [place] [address] PCP - General Internal Medicine 05/29/21 02/25/22 Lacey Perdue MD [address] [phone] Referring Physician Infectious Diseases 06/28/18 documented as of this encounter
--- OUTSIDE RECORDS SUMMARY | 2024-11-23 10:15 | XMS_ITS | Encounter Summary ---
Author Organization [employer] Address [address] [place] [address] Care Team Providers Care Manager Balance Name Role Phone Lacey Perdue MD Unavailable [phone] Michell Trevizo MD Primary Care Provider [phone] Reason for Visit * Reason Comments Follow-up Encounter Details Date Type Department Care Team ([facility] st Contact Info) Description 06/05/2021 11:30 AM CDT Office Visit [facility] ENT [address] [place] [phone] Carson Wolff MD [address] [place] [phone] Pre-operative exam (Primary Dx); Nasal obstruction; [...] of Assessment Author No 10/25/2017 2:00 PM ATTENDING UROLOGIST Galvan, Am y S, ROUGHER MERCHANT MILL * Are you blind or do you have serious difficulty seeing, even when wearing glasses? Answer Date of Assessment Author No 10/25/2017 2:00 PM ATTENDING UROLOGIST Galvan, Am y S, ROUGHER MERCHANT MILL * Do you have serious difficulty walking or climbing stairs? (5 years old or older) Answer Date of Assessment Author No 10/25/2017 2:00 PM ATTENDING UROLOGIST Galvan, Am y S, ROUGHER MERCHANT MILL * Do you have difficulty dressing or bathing? (5 years old or older) Answer Date of Assessment Author No 10/25/2017 2:00 PM ATTENDING UROLOGIST Galvan, Am y S, ROUGHER MERCHANT MILL * Because of a physical, mental, or emotional condition, do you have difficulty doing errands alone such as visiting a doctor's office or shopping? (15 years old or older) Answer Date of Assessment Author No 10/25/2017 2:00 PM ATTENDING UROLOGIST Galvan, Am y S, ROUGHER MERCHANT MILL documented as of this encounter Mental Status * Because of a physical, mental, or emotional condition, do you have serious difficulty concentrating, remembering, or making decisions? (5 years old or older) Answer Entry Date Author No 10/25/2017 2:00 PM ATTENDING UROLOGIST Galvan, Am y S, ROUGHER MERCHANT MILL documented in this encounter Progress Notes * Carson Wolff MD - 06/05/2021 11:30 AM CDT Images from the original note were not included. Subjective: Edilberto Hawley is a 65 y.o. male who is here for follow up of nasal obstruction, recurrent/chronic sinusitis, hearing loss, swallowing difficulties. LS in [place] on 04/07/2021. PCP is Dr. Trevizo. CT [...] ??? Rotator cuff injury ??? Substance abuse ([facility]) ??? Migraines ??? Chronic back pain greater than 3 months duration ??? Arthritis ??? 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 Cellulitis of axilla, right ??? Avascular necrosis of bone ([facility]) ??? Spinal stenosis ??? Chronic pain ??? Closed fracture of transverse process of lumbar vertebra with routine healing ??? Femoral acetabular impingement ??? 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 History of repair of left rotator cuff ??? Hyperlipidemia ??? retirement current use of opiate analgesic ??? Osteoarthritis of lumbar spine ??? Pain of left lower extremity ??? Sciatica ??? Sensory hearing loss, bilateral Past Medical History: Diagnosis Date ??? Arthritis ??? Back injury ??? Chronic back pain greater than 3 months duration ??? GERD (gastroesophageal reflux disease) ??? Migraines ??? Osteomyelitis of ankle or foot, acute, right ([facility]) 2018 Stepped on nail ??? Shoulder injury ??? Substance abuse ([facility]) cocaine, crystal meth nothing since [...] PT/PTT; Future - Coronavirus SARS-CoV-2; Future Edilberto Hawely is a 65 y.o. male with recurrent/chronic [...] Wolff M.D., Ph.D. Pediatric and General Otolaryngology [facility] documented in this encounter Plan of Treatment Not on file documented as of this encounter Goals Goal Patient Goal Type Associated Problems Recent Progress Patient-Stated? Author Blood Pressure < 140/90 Blood Pressure 134/86(2022 2:25 PM CDT) No eLonard Jasso APRN documented as of this encounter Results * Coronavirus SARS-CoV-2 (08/28/2021 2:08 PM CDT) SARS-CoV-2 PCR NEGATIVE Negative [facility] Comment:The 2019 novel coron avirus (Sars-CoV-2) target nucleic acids are not detected. NASOPHARYNGEAL SWAB / Unknown 08/28/2021 2:08 PM CDT 08/28/2021 2:14 PM CDT Comment:- Narrative [facility] - 08/28/2021 4:12 PM CDT Surgeon Name: New Date and time of Surgery: 07/16/21 Surgery Location: [address] [place] [address] Evaluate patient for COVID symptoms and acquire sample. Priority 1: Pre-procedure Indication Reason:->Screening Pre-Procedure Testing is performed by the [facility] GeneXpert real-time, reverse track subway repair supervisor polymerase chain reaction (RT-PCR) assay. Testing with [...] available to the physician. Testing performed at [facility], [address] [place] [address]. CLIA [id number] Phone [phone] Ext [phone] ??Industrial Training Specialist Shant Rivas MD Carson Wolff MD MICROBIOLOGY - GENERAL OR DERABLES Final Result [facility] [address] [place] [address] [phone] documented in this encounter Visit Diagnoses Diagnosis [...] as of this encounter Care Teams Manager Balance Relationship Specialty Start Date End Date Michell Trevizo MD [address] [place] [address] PCP - General Internal Medicine 05/29/21 02/25/22 Lacey Perdue MD [address] [phone] Referring Physician Infectious Diseases 06/28/18 documented as of this encounter
--- OUTSIDE RECORDS SUMMARY | 2024-11-23 10:15 | XMS_ITS | Encounter Summary ---
Author Organization [employer] Address [address] [place] [address] Care Team Providers Care Casting Tester Name Role Phone Lacey Perdue MD Unavailable [phone] Patient, None Per Primary Care Provider Unavaila ble Encounter Details Date Type Department Care Team (Latest Contact Info) Description 05/01/2021 Transcribe Orders [facility] - ENT [address] [place] [phone] Eve Ward, FORGING PRESS SETTER UP [address] [place] [address] Dysphagia, unspecified type (Primary Dx); [...] Author No 10/25/2017 2:00 PM Deonna Padilla, PLAYERS ASSISTANT * Are you blind or do you have serious difficulty seeing, even when wearing glasses? Answer Date of Assessment Author No 10/25/2017 2:00 PM Deonna Padilla, PLAYERS ASSISTANT * Do you have serious difficulty walking or climbing stairs? (5 years old or older) Answer Date of Assessment Author No 10/25/2017 2:00 PM Deonna Padilla, PLAYERS ASSISTANT * Do you have difficulty dressing or bathing? (5 years old or older) Answer Date of Assessment Author No 10/25/2017 2:00 PM Deonna Padilla, PLAYERS ASSISTANT * Because of a physical, mental, or emotional condition, do you have difficulty doing errands alone such as visiting a doctor's office or shopping? (15 years old or older) Answer Date of Assessment Author No 10/25/2017 2:00 PM Deonna Padilla, PLAYERS ASSISTANT documented as of this encounter Mental [...] documented as of this encounter Care Teams Casting Tester Relationship Specialty Start Date End Date Patient, None Per PCP - General 05/01/21 05/28/21 Lacey Perdue MD [address] [phone] Referring Physician Infectious Diseases 06/28/18 documented as of this encounter
--- OUTSIDE RECORDS SUMMARY | 2024-11-23 10:15 | XMS_ITS | Encounter Summary ---
Author Organization [employer] Address [address] [place] [address] Care Team Providers Care Twister Hand Name Role Phone Lacey Perdue MD Unavailable [phone] Michell Trevizo MD Primary Care Provider [phone] Reason for Referral * Diagnostic Radiology (Routine) - Closed Specialty Diagnoses / Procedures Referred By Contjessica t Referred To Contact Radiology Diagnoses Elevated liver enzymes Procedures US Abdomen Ltd Michell Trevizo MD [address] [place] [address] Phone: tel: fax: Referral ID Status Reason Start Date Expiration Date Visits Re quested Visits Authorized [id number] Closed 06/30/2021 01/01/2023 1 1 Reason for Visit * Reason Comments Follow-up 1 month Encounter Details Date Type Department Care Team (Latest Contact Info) Description 06/30/2021 10:15 AM CDT Office Visit [facility] Internal Medicine [address] [place] [phone] Michell Trevizo MD [address] [place] [phone] Elevated liver enzymes (Primary Dx); Encounter for long-term current use of medication; Need for hepatitis C screening test; Chronic bilateral low back pain with left-sided sciatica; Spinal stenosis, unspecified spinal region; Hyperlipidemia, unspecified hyperlipidemia type; skilled nursing current use of opiate analgesic Social History [...] AM CDT General Internal Medicine Patient Note [facility] CC: Chief Complaint Patient presents [...] Meth. Tried Hypnosis - [facility] in [place]. Patient reports that he is no longer [...] Past Medical/Surgical/Family/Social History: Reviewed and updated in [facility] History tab Medications: Reviewed and updated in [facility] Medications tab Current Outpatient [...] 9:58 AM CDT) medMATCH Summary SEE NOTE [facility] Comment: ?Prescribed ?Prescribed ?Not Prescribed ?Consistent ?Inconsistent ?Inconsistent ?Oxycodone ? [KS] Prescribed Drug 1 Oxycodone QU [facility] Comment: [KS] Testing performed at: [facility] [address] [place], [address], Community Pharmacist: Osvaldo Rios D.O., MPH Amphetamines NEGATIVE <500 ng/mL [facility] Comment:[CB] Barbiturates NEGATIVE <300 ng/mL [facility] Comment:[CB] Benzodiazepines NEGATIVE <100 ng/mL [facility] Comment:[CB] Cocaine Metabolite NEGATIVE <150 ng/mL [facility] Comment:[CB] Marijuana Metabolite NEGATIVE <20 ng/mL [facility] Comment:[CB] Methadone NEGATIVE <100 ng/mL [facility] Comment:[CB] Opiates NEGATIVE CONFIRMED <100 ng/mL [facility] Comment:[CB] Codeine NEGATIVE <50 ng/mL [facility] Comment:[CB] Hydrocodone NEGATIVE <50 ng/mL [facility] Comment:[CB] Hydromorphone NEGATIVE <50 ng/mL [facility] Comment:[CB] Morphine UR NEGATIVE <50 ng/mL [facility] Comment:[CB] Norhydrocodone NEGATIVE <50 ng/mL [facility] Comment:[CB] Opiates Comments SEE NOTE [facility] Comment: See LDT Notes [CB] Oxycodone POSITIVE(A) <100 ng/mL [facility] Comment:[CB] Noroxycodone, UR 9,123(H) <50 ng/mL [facility] Comment:[CB] MEDMATCH NOROXYCODONE CONSISTENT [facility] Comment:[CB] Oxycodone 9,084(H) <50 ng/mL [facility] Comment:[CB] medMATCH Oxycodone CONSISTENT [facility] Comment:[CB] Oxymorphone 9,127(H) <50 ng/mL [facility] Comment:[CB] medMATCH Oxymorphone CONSISTENT [facility] Comment:[CB] Oxycodone Comments SEE NOTE [facility] Comment: See Oxycodone Notes, LDT Notes [CB] Phencyclidine NEGATIVE <25 ng/mL [facility] Comment:[CB] Creatinine Urine 242.0 > or = 20.0 mg/dL [facility] Comment:[CB] pH 5.1 4.5 - 9.0 [facility] Comment:[CB] Oxidant NEGATIVE <200 mcg/mL [facility] Comment:[CB] Comments: SEE NOTE [facility] Comment: This drug testing is [...] analytical performance characteristics have been determined by [employer]. It has not been cleared or approved by the FDA. This assay has been validated pursuant to the CLIA regulations and is used for clinical purposes. medMATCH(R) enables providers to identify if drug use is consistent or inconsistent with a corresponding prescribed medication(s) list. Healthcare Providers needing Interpretation assistance, please contact us at [phone] ( ) M-F, 8am to 10pm EST [[place]] Urine 07/28/2021 9:58 AM CDT 07/29/2021 7:11 AM CDT Narrative [facility] - 07/31/2021 12:45 PM CDT Testing performed at: [facility], [address] [place], [address], Community Pharmacist: Osvaldo Rios D.O., MPH Michell Trevizo MD URINE ORDERABLES Final Result Performing Organization Address City/State/[facility] Co de Phone Number [facility] [address] [place] [address] [phone] * Hepatitis C antibody (07/28/2021 9:51 AM CDT) Hep C Ab Nonreactive Nonreactive [facility] Blood 07/28/2021 9:51 AM CDT 07/28/2021 10:33 AM CDT Comment:- Narrative [facility] - 07/30/2021 11:11 AM CDT Testing performed at [facility], [address] [place] [address]. CLIA [id number] Phone [phone] Ext [phone] ??Community Pharmacist Shant Rivas MD us Michell Trevizo MD LAB BLOOD ORDERABLES Final Res ult [facility] [address] [phone] * (ABNORMAL) Comprehensive metabolic panel (07/28/2021 9:51 AM CDT) Glucose 106(H) 60 - 100 mg/dL [facility] Comment: Fasting Plasma Glucose (FPG) ?<100 MG/DL Impaired Fasting Glucose (IFG) ? 100-125 MG/DL Provisional Diagnosis of Diabetes Mellitus ?? > or = 126 MG/DL (Diagnosis Must Be Confirmed) BUN 12 8 - 26 mg/dL [facility] Creatinine 0.8 0.7 - 1.4 mg/dL [facility] Glomerular Filtration Rate Estimate 91 >80 mL/min/1.7 3mm2 [facility] Glomerular Filtration Rate Estimate- 105 >80 mL/min/1.7 3mm2 [facility] Comment:The estimated GFR george s not been validated for women or patients with serious comorbid conditions, or with extremes of body size, muscle mass, or nutritional status. Calcium 9.0 8.4 - 10.2 mg/dL [facility] Sodium 138 136 - 145 mmol/L [facility] Potassium 4.0 3.4 - 4.9 mmol/L [facility] Chloride 103 99 - 111 mmol/L [facility] CO2 25.5 21.0 - 32.0 mmol/L [facility] Albumin 4.0 3.5 - 5.0 g/dL [facility] Total Protein 7.6 6.1 - 8.0 g/dL [facility] Bilirubin Total 0.5 0.2 - 1.2 mg/dL [facility] Alkaline Phosphatase 72 40 - 150 U/L [facility] AST 50(H) 5 - 34 U/L [facility] ALT 62(H) 0 - 55 u/L [facility] Blood 07/28/2021 9:51 AM CDT 07/28/2021 10:33 AM CDT Comment:- Narrative [facility] - 07/28/2021 4:04 PM CDT Testing performed at [facility], [address] [place] [address]. CLIA [id number] Phone [phone] Ext [phone] ??Community Pharmacist Shant Rivas MD Michell Trevizo MD LAB BLOOD ORDERABLES Final Res ult [facility] [address] [place] [phone] [phone] * US Abdomen Ltd (07/15/2021 7:50 AM CDT) Anatomical Region Laterality Modality Ultrasound 07/15/2021 7:50 AM CDT Narrative 07/15/2021 8:34 AM CDT [address] ??[address] DIAGNOSTIC IMAGING Name: EDILBERTO DURAND ??Ordering Phys: MICHELL TREVIZO Date of : 1955 ?Gender: Bon ??Accession Number: [id number] EXAM DESCRIPTION: US ABDOMEN LIMITED REASON FOR [...] Procedure Note Kerwin Malik MD - 07/15/2021 [place] [address] DIAGNOSTIC IMAGING Name: EDILBERTO DURAND Ordering Phys: MICHELL TREVIZO Date of : 1955 Gender: M Accession Number: [id number] EXAM DESCRIPTION: US ABDOMEN LIMITED REASON FOR [...] by Kerwin Malik M.D. 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
--- OUTSIDE RECORDS SUMMARY | 2024-11-23 10:15 | XMS_ITS | Encounter Summary ---
Author Organization [employer] Address [address] [place] [address] Care Team Providers Care Vice President Residential Solar Sales Name Role Phone Lacey Perdue MD Unavailable [phone] David Concepcion APRN Primary Care Provide r Reason for Referral * MRI/CAT Scan (Routine) - Closed Specialty Diagnoses / Procedures Referred By Celine almaguer Referred To Contact Radiology Diagnoses Chronic neck pain Radicular pain in right arm Procedures MRI Cervical Spine wo Contrast David Concepcion, SURGICAL CLINICAL REVIEWER [address] [place] [address] Phone: tel: fax: Referral ID Status Reason Start Date Expiration Date Visits Re quested Visits Authorized [id number] Closed 02/21/2021 02/21/2022 1 1 Reason for Visit * MRI/CAT Scan (Routine) - Closed Specialty Diagnoses / Procedures Referred By Celine almaguer Referred To Contact Radiology Diagnoses Chronic neck pain Radicular pain in right arm Send to patient access, order in [facility]. MRI C-Spine (WO), DX: Chronic neck pain, radicular pain in right arm, Romero has order in [facility]/k It unable to contact him at his number, please call #[phone] and ask for Javier, Procedures MRI CERVICAL SPINE WO CONTRAST MRI SPINE CERVICAL WO CONT David Concepcion, SURGICAL CLINICAL REVIEWER [address] [place] [address] Phone: tel: fax: [facility] [address] [place] [address] Phone: tel: Referral ID Status Reason Start Date Expiration Date Visits Re quested Visits Authorized [id number] Closed 03/05/2021 03/05/2022 1 1 Encounter Details Date Type Department Care Team (Late st Contact Info) Description 03/05/2021 8:33 AM CDT - 03/05/2021 11:59 PM CDT Hospital Encounter [facility] [address] [place] [address] David Concepcion, SURGICAL CLINICAL REVIEWER [address] [place], [place] [address] Chronic neck pain; Radicular pain in right [...] Durbin M.D. Narrative 03/12/2021 3:33 PM [address]T [address] [place] [address] DIAGNOSTIC IMAGING Name: EDILBERTO DURAND BALJEET ??Ordering Phys: DAVID CONCEPCION Date of : 1955 ?Gender: M ??Accession Number: [id number] EXAM DESCRIPTION: MRI CERVICAL SPINE WO CONTRAST [...] Procedure Note Dayanna Durbin MD - 03/12/[address] [place] [address] DIAGNOSTIC IMAGING Name: EDILBERTO DURAND Ordering Phys: DAVID CONCEPCION Date of : 1955 Gender: M Accession Number: [id number] EXAM DESCRIPTION: MRI CERVICAL SPINE WO CONTRAST [...] unspecified documented in this encounter Care Teams Vice President Residential Solar Sales Relationship Specialty Start Date End Date David Concepcion APRN [address] [facility] [address] [place] [address] PCP - General Family Medicine 08/15/19 04/30/21 Lacey Perdue MD [address] [address] Referring Physician Infectious Diseases 06/28/18 documented as of this encounter
--- OUTSIDE RECORDS SUMMARY | 2024-11-23 10:15 | XMS_ITS | Encounter Summary ---
Author Organization [employer] Address [address] [place] [address] Care Team Providers Care Film Coater Name Role Phone Lacey Perdue MD Unavailable [phone] Leonard Jasso APRN Primary Care Provide r Reason for Visit * Reason Comments Medication Refill Encounter Details Date Type Department Care Team (Late st Contact Info) Description 03/10/[address] [address] Leonard Jasso, ANGIE [address] [place] [address] Social History Tobacco Use Types Packs/Day [...] of Assessment Author No 10/25/2017 2:00 PM AUTOMOBILE LOCATOR Galvan, Am y S, CRIMINAL INTELLIGENCE ANALYST * Are you blind or do you have serious difficulty seeing, even when wearing glasses? Answer Date of Assessment Author No 10/25/2017 2:00 PM AUTOMOBILE LOCATOR Galvan, Am y S, CRIMINAL INTELLIGENCE ANALYST * Do you have serious difficulty walking or climbing stairs? (5 years old or older) Answer Date of Assessment Author No 10/25/2017 2:00 PM AUTOMOBILE LOCATOR Galvan, Am y S, CRIMINAL INTELLIGENCE ANALYST * Do you have difficulty dressing or bathing? (5 years old or older) Answer Date of Assessment Author No 10/25/2017 2:00 PM AUTOMOBILE LOCATOR Galvan, Am y S, CRIMINAL INTELLIGENCE ANALYST * Because of a physical, mental, or emotional condition, do you have difficulty doing errands alone such as visiting a doctor's office or shopping? (15 years old or older) Answer Date of Assessment Author No 10/25/2017 2:00 PM AUTOMOBILE LOCATOR Galvan, Am y S, CRIMINAL INTELLIGENCE ANALYST documented as of this encounter Mental Status * Because of a physical, mental, or emotional condition, do you have serious difficulty concentrating, remembering, or making decisions? (5 years old or older) Answer Entry Date Author No 10/25/2017 2:00 PM AUTOMOBILE LOCATOR Galvan, Am y S, CRIMINAL INTELLIGENCE ANALYST documented in this encounter Plan of Treatment Not on file documented as of this encounter Goals Goal Patient Goal Type Associated Problems Recent Progress Patient-Stated? Author Blood Pressure < 140/90 Blood Pressure 134/86(2022 2:25 PM CDT) No Leonard Jasso APRN documented as of this encounter Visit Diagnoses Not on filedocumented in this encounter Care Teams Film Coater Relationship Specialty Start Date End Date Leonard Jasso APRN [address] [facility] [address] [place] [address] PCP - General Family Medicine 08/15/19 04/30/21 Lacey Perdue MD [address] [id number] Referring Physician Infectious Diseases 06/28/18 documented as of this encounter
--- OUTSIDE RECORDS SUMMARY | 2024-11-23 10:15 | XMS_ITS | Encounter Summary ---
Author Organization [employer] Address [address] [place] [address] Care Team Providers Care Hat Maker Name Role Phone Lacey Perdue MD Unavailable [phone] Michell Trevizo MD Primary Care Provider [phone] Reason for Visit * Reason Comments Follow-up Encounter Details Date Type Department Care Team (Late st Contact Info) Description 08/18/2021 2:45 PM CDT Office Visit [facility] [address] [place] [address] Emmanuel Jefferson, SILO OPERATOR [address] [place] [address] Cervicalgia (Primary Dx); Cervical spondylosis without [...] of Assessment Author No 10/25/2017 2:00 PM KEG WASHER Deonna Galvan y S, PACKAGER HAND * Are you blind or do you have serious difficulty seeing, even when wearing glasses? Answer Date of Assessment Author No 10/25/2017 2:00 PM KEG WASHER Deonna Galvan y S, PACKAGER HAND * Do you have serious difficulty walking or climbing stairs? (5 years old or older) Answer Date of Assessment Author No 10/25/2017 2:00 PM KEG WASHER Cole Am y S, PACKAGER HAND * Do you have difficulty dressing or bathing? (5 years old or older) Answer Date of Assessment Author No 10/25/2017 2:00 PM KEG WASHER Cole Am y S, PACKAGER HAND * Because of a physical, mental, or emotional condition, do you have difficulty doing errands alone such as visiting a doctor's office or shopping? (15 years old or older) Answer Date of Assessment Author No 10/25/2017 2:00 PM KEG WASHER Cole Am y S, PACKAGER HAND documented as of this encounter Mental Status * Because of a physical, mental, or emotional condition, do you have serious difficulty concentrating, remembering, or making decisions? (5 years old or older) Answer Entry Date Author No 10/25/2017 2:00 PM KEG WASHER Cole Am y S, PACKAGER HAND documented in this encounter Patient Instructions * Patient Instructions* Emmanuel Jefferson NP - 08/18/2021 2:45 PM CDT Images from the original note were not included. Pre Procedure Checklist Dear Patient, Before you have a procedure at [facility], please note the following: BOAT WRAPPER You must have a canal driver accompany you at the time of the discharge from the clinic, as you will not be able to drive or operate machinery for 6 hours after the procedure. IF YOU DO NOT HAVE A BOAT WRAPPER, YOU WILL BE ASKED TO RESCHEDULE. INFECTION [...] any questions, please contact the clinic at [phone] ext. [phone]. Thank you , [facility] [...] patient and prescriber. Consider referral to [facility] GROUND EQUIPMENT MECHANIC, for evaluation of opiate risk and any [...] this patient. This document was dictated using [employer]; extrusion technician variances may occur * Edilberto Gann MD [...] documented as of this encounter Care Teams Hat Maker Relationship Specialty Start Date End Date Michell Trevizo MD [address] [place] [address] PCP - General Internal Medicine 05/29/21 02/25/22 Lacey Perdue MD [address] [phone] Referring Physician Infectious Diseases 06/28/18 documented as of this encounter
--- OUTSIDE RECORDS SUMMARY | 2024-11-23 10:15 | XMS_ITS | Encounter Summary ---
Author Organization [employer] Address [address] [place] [address] Care Team Providers Care Blackjack Supervisor Name Role Phone Lacey Perdue MD Unavailable [phone] Michell Trevizo MD Primary Care Provider [phone] Reason for Visit * Reason Onset Date Comments Results 05/30/2021 Encounter Details Date Type Department Care Team (Late st Contact Info) Description 05/30/2021 Telephone [facility] Internal Medicine [address] [place] [address] Clarice Stevens RN [address] [place] [address] Results Social History Tobacco Use [...] of Assessment Author No 10/25/2017 2:00 PM PETROLEUM REFINERY WORKER Galvan, Am y S, INTEGRITY ANALYST * Are you blind or do you have serious difficulty seeing, even when wearing glasses? Answer Date of Assessment Author No 10/25/2017 2:00 PM PETROLEUM REFINERY WORKER Galvan, Am y S, INTEGRITY ANALYST * Do you have serious difficulty walking or climbing stairs? (5 years old or older) Answer Date of Assessment Author No 10/25/2017 2:00 PM PETROLEUM REFINERY WORKER Galvan, Am y S, INTEGRITY ANALYST * Do you have difficulty dressing or bathing? (5 years old or older) Answer Date of Assessment Author No 10/25/2017 2:00 PM PETROLEUM REFINERY WORKER Galvan, Am y S, INTEGRITY ANALYST * Because of a physical, mental, or emotional condition, do you have difficulty doing errands alone such as visiting a doctor's office or shopping? (15 years old or older) Answer Date of Assessment Author No 10/25/2017 2:00 PM PETROLEUM REFINERY WORKER Galvan, Am y S, INTEGRITY ANALYST documented as of this encounter Mental Status * Because of a physical, mental, or emotional condition, do you have serious difficulty concentrating, remembering, or making decisions? (5 years old or older) Answer Entry Date Author No 10/25/2017 2:00 PM JOHN Galvan, Am y S, INTEGRITY ANALYST documented in this encounter Miscellaneous Notes [...] documented as of this encounter Care Teams Blackjack Supervisor Relationship Specialty Start Date End Date Michell Trevizo MD [address] [place] [address] PCP - General Internal Medicine 05/29/21 02/25/22 Lacey Perdue MD [address] [address] Referring Physician Infectious Diseases 06/28/18 documented as of this encounter
--- OUTSIDE RECORDS SUMMARY | 2024-11-23 10:15 | XMS_ITS | Encounter Summary ---
Author Organization [employer] Address [address] [place] [address] Care Team Providers Care District Branch Manager Name Role Phone Lacey Perdue MD Unavailable [phone] Patient, None Per Primary Care Provider Unavaila ble Reason for Referral * Diagnostic Radiology (Routine) - Closed Specialty Diagnoses / Procedures Referred By Celine almaguer Referred To Contact Radiology Diagnoses Myofascial muscle pain Procedures US Guided Needle Placement Emmanuel Jefferson NP [address] [place] [address] Phone: tel: fax: Referral ID Status Reason Start Date Expiration Date Visits Re quested Visits Authorized [id number] Closed 05/15/2021 11/16/2022 1 1 Reason for Visit * Reason Comments Injections * Injections (Routine) - Closed Specialty Diagnoses / Procedures Referred By Celine almaguer Referred To Contact Pain Medicine Diagnoses Myofascial muscle pain Procedures MS INJECT TRIGGER POINTS, > 3 MS SONO GUIDE NEEDLE BIOPSY C TPIs 05/22/21 Emmanuel Jefferson, ALFONSO [address] [place] [address] Phone: tel: fax: Emmanuel Jefferson NP [address] [place] [address] Phone: tel: fax: Referral ID Status Reason Start Date Expiration Date Visits Re quested Visits Authorized [id number] Closed 04/23/2021 04/23/2022 1 1 Encounter Details Date Type Department Care Team (Late st Contact Info) Description 05/15/2021 8:50 AM CDT Procedure visit [facility] [address] [place] [address] Emmanuel Jefferson, CO FOUNDER AND CTO [address] [place] [address] Myofascial muscle pain (Primary Dx) [...] allergy to chlorhexidine, Hibiclens, contrast, or latex. Research Group Director: * Edilberto Gann MD - 05/15/2021 8:50 AM CDT I have reviewed the notes, assessments, and/or procedures performed by Emmanuel Jefferson NP, and I concur with her documentation of Edilberto Hawley. documented in this encounter Procedure Notes * Emmanuel Jefferson NP - 05/15/2021 8:50 AM CDTAssociated Order(s): Trigger point injection, >3 () Post-Procedure Diagnose(s): Myofascial muscle pain Trigger point injection, >3 (00685) Date/Time: 05/15/2021 8:36 AM Performed by: Emmanuel Jefferson NP Authorized by: Emmanuel Jefferson NP [place] Protocol: Verbal consent obtained?: Yes Written consent [...] time out verifies correct patient, procedure, equipment, community support specialist and site/side marked as required.) Preparation: Preparation: [...] points. Atime out was performed by the nurse/electrician's assistant and provider in the room with [...] clinic visit. This document was dictated using [employer]; closing manager variances may occur. documented in this encounter [...] 05/15/2021 9:14 AM CDT Myofascial muscle pain MS INJECT TRIGGER POINTS, > 3 Routine 05/15/2021 8:36 AM CDT Myofascial muscle pain documented in this encounter Results * US Guided Needle Placement (05/15/2021 9:14 AM CDT) Anatomical Region Laterality Modality Ultrasound Narrative 05/15/2021 9:14 AM CDT See Office Visit for documentation. Emmanuel Jefferson NP IMG PRO US ORDERABLES Final Re sult * MS INJECT TRIGGER POINTS, > 3 (05/15/2021 8:36 AM CDT) Narrative Emmanuel Jefferson NP - 05/15/2021 8:36 AM CDT Emmanuel Jefferson NP ? 05/15/2021 10:01 AM Trigger point injection, >3 () Date/Time: 05/15/2021 8:36 AM Performed by: Emmanuel Jefferson NP Authorized by: Emmanuel Jefferson NP [place] Protocol: ?Verbal consent obtained?: Yes ?Written consent [...] time out verifies correct patient, procedure, equipment, community support specialist and site/side marked as required.) Preparation: ?Preparation: [...] Manager Relationship Specialty Start Date End Date Patient, None Per PCP - General 05/01/21 05/28/21 Lacey Perdue MD [address] [address] Referring Physician Infectious Diseases 06/28/18 documented as of this encounter
--- OUTSIDE RECORDS SUMMARY | 2024-11-23 10:15 | XMS_ITS | Encounter Summary ---
Author Organization [employer] Address [address] [place] [address] Care Team Providers Care Bicycle Courier Name Role Phone Lacey Perdue MD Unavailable [phone] Michell Trevizo MD Primary Care Provider [phone] Encounter Details Date Type Department Care Team [...] of Assessment Author No 10/25/2017 2:00 PM SR. UNIX SYSTEM ADMINISTRATOR Galvan, Am y S, PRODUCTION STAFF WORKER * Do you have serious difficulty walking or climbing stairs? (5 years old or older) Answer Date of Assessment Author No 10/25/2017 2:00 PM Deonna Padilla S, PRODUCTION STAFF WORKER * Do you have difficulty dressing or bathing? (5 years old or older) Answer Date of Assessment Author No 10/25/2017 2:00 PM JOHN Galvan Am y S, PRODUCTION STAFF WORKER * Because of a physical, mental, or emotional condition, do you have difficulty doing errands alone such as visiting a doctor's office or shopping? (15 years old or older) Answer Date of Assessment Author No 10/25/2017 2:00 PM JOHN Galvan Am y S, PRODUCTION STAFF WORKER documented as of this encounter Mental Status * Because of a physical, mental, or emotional condition, do you have serious difficulty concentrating, remembering, or making decisions? (5 years old or older) Answer Entry Date Author No 10/25/2017 2:00 PM Deonna Padilla S, PRODUCTION STAFF WORKER documented in this encounter Plan of [...] as of this encounter Care Teams Bicycle Courier Relationship Specialty Start Date End Date Michell Trevizo MD [facility] [place] [address] PCP - General Internal Medicine 05/29/21 02/25/22 Lacey Perdue MD [address] [phone] Referring Physician Infectious Diseases 06/28/18 documented as of this encounter
--- OUTSIDE RECORDS SUMMARY | 2024-11-23 10:15 | XMS_ITS | Encounter Summary ---
Author Organization [employer] Address [address] [place] [address] Care Team Providers Care Billing Administrator Name Role Phone Lacey Perdue MD Unavailable [phone] Michell Trevizo MD Primary Care Provider [phone] Reason for Visit * Reason Comments Abnormal Lab * Diagnostic Radiology (Routine) - Closed Specialty Diagnoses / Procedures Referred By Contjessica t Referred To Contact Radiology Diagnoses Elevated liver enzymes Procedures US Abdomen Ltd Michell Trevizo MD [address] [place] [address] Phone: tel: fax: Referral ID Status Reason Start Date Expiration Date Visits Re quested Visits Authorized [id number] Closed 06/30/2021 01/01/2023 1 1 Encounter Details Date Type Department Care Team (Latest Contact Info) Description 07/15/2021 8:00 AM CDT Clinical Support [facility] [address] [place] [address] Michell Trevizo MD [address] [place] [address] [facility] [address] [place] [address] Elevated liver enzymes Social History [...] AM CDT Narrative 07/15/2021 8:34 AM CDT [address] ??[address] DIAGNOSTIC IMAGING Name: EDILBERTO DURAND ??Ordering Phys: MICHELL TREVIZO Date of : 1955 ?Gender: Bon ??Accession Number: [id number] EXAM DESCRIPTION: US ABDOMEN LIMITED REASON FOR [...] Procedure Note Kerwin Malik MD - 07/15/[address] [address] DIAGNOSTIC IMAGING Name: EDILBERTO DURAND Ordering Phys: TREVIZO, IMRAN M Date of : 1955 Gender: M Accession Number: [id number] EXAM DESCRIPTION: US ABDOMEN LIMITED REASON FOR [...] documented as of this encounter Care Teams Billing Administrator Relationship Specialty Start Date End Date Michell Trevizo MD [address] [place] [address] PCP - General Internal Medicine 05/29/21 02/25/22 Lacey Perdue MD [facility] [address] Referring Physician Infectious Diseases 06/28/18 documented as of this encounter
--- OUTSIDE RECORDS SUMMARY | 2024-11-23 10:15 | XMS_ITS | Encounter Summary ---
Author Organization [employer] Address [address] [place] [address] Care Team Providers Care Clothing Pattern Preparer Name Role Phone Lacey Perdue MD Unavailable [phone] Michell Trevizo MD Primary Care Provider [phone] Reason for Visit * Reason Comments Medication Refill Encounter Details Date Type Department Care Team (Late st Contact Info) Description 08/01/2021 Refill [facility] Internal Medicine [address] [place] [address] Michell Trevizo MD [address] [place] [address] Social History Tobacco Use Types Packs/Day [...] Author No 10/25/2017 2:00 PM Deonna Padilla, TOOLS DEVELOPER * Are you blind or do you have serious difficulty seeing, even when wearing glasses? Answer Date of Assessment Author No 10/25/2017 2:00 PM Deonna Padilla, TOOLS DEVELOPER * Do you have serious difficulty walking or climbing stairs? (5 years old or older) Answer Date of Assessment Author No 10/25/2017 2:00 PM Deonna Padilla, TOOLS DEVELOPER * Do you have difficulty dressing or bathing? (5 years old or older) Answer Date of Assessment Author No 10/25/2017 2:00 PM Deonna Padilla, TOOLS DEVELOPER * Because of a physical, mental, or emotional condition, do you have difficulty doing errands alone such as visiting a doctor's office or shopping? (15 years old or older) Answer Date of Assessment Author No 10/25/2017 2:00 PM Deonna Padilla, TOOLS DEVELOPER documented as of this encounter Mental Status * Because of a physical, mental, or emotional condition, do you have serious difficulty concentrating, remembering, or making decisions? (5 years old or older) Answer Entry Date Author No 10/25/2017 2:00 PM Deonna Padilla TOOLS DEVELOPER documented in this encounter Plan of [...] documented as of this encounter Care Teams Clothing Pattern Preparer Relationship Specialty Start Date End Date Michell Trevizo MD [facility] [place] [address] PCP - General Internal Medicine 05/29/21 02/25/22 Lacey Perdue MD [address] [phone] Referring Physician Infectious Diseases 06/28/18 documented as of this encounter
--- OUTSIDE RECORDS SUMMARY | 2024-11-23 10:15 | XMS_ITS | Encounter Summary ---
Author Organization [employer] Address [address] [place] [address] Care Team Providers Care Roll Bucker Name Role Phone Lacey Perdue MD Unavailable [phone] Michell Trevizo MD Primary Care Provider [phone] Encounter Details Date Type Department Care Team (Latest Contact Info) Description 08/25/2021 Transcribe Orders [facility]NT [address] [place] [address] Eve Ward, INJECTION MOULDING MACHINE OPERATOR [address] [place] [address] Pre-operative exam (Primary Dx) Social [...] No 10/25/2017 2:00 PM Deonna Padilla S, GRAB OPERATOR * Are you blind or do you have serious difficulty seeing, even when wearing glasses? Answer Date of Assessment Author No 10/25/2017 2:00 PM JOHN Galvan Am y S, GRAB OPERATOR * Do you have serious difficulty walking or climbing stairs? (5 years old or older) Answer Date of Assessment Author No 10/25/2017 2:00 PM Deonna Padilla S, GRAB OPERATOR * Do you have difficulty dressing or bathing? (5 years old or older) Answer Date of Assessment Author No 10/25/2017 2:00 PM Deonna Padilla S, GRAB OPERATOR * Because of a physical, mental, or emotional condition, do you have difficulty doing errands alone such as visiting a doctor's office or shopping? (15 years old or older) Answer Date of Assessment Author No 10/25/2017 2:00 PM Deonna Padilla S, GRAB OPERATOR documented as of this encounter Mental Status * Because of a physical, mental, or emotional condition, do you have serious difficulty concentrating, remembering, or making decisions? (5 years old or older) Answer Entry Date Author No 10/25/2017 2:00 PM Deonna Padilla, GRAB OPERATOR documented in this encounter Plan of Treatment Not on file documented as of this encounter Goals Goal Patient Goal Type Associated Problems Recent Progress Patient-Stated? Author Blood Pressure < 140/90 Blood Pressure 134/86(2022 2:25 PM CDT) No Leonard Jasso APRN documented as of this encounter Results * EKG 12-lead (08/27/2021 11:30 AM CDT) 08/27/2021 11:3 0 AM CDT [facility] RADIOLOG[facility] - 08/27/2021 10:50 AM CDT Vent Rate: 66 bpm RR Interval: 902 msec MA Interval: 199 msec QRS Duration: 98 msec QT Interval: 377 msec QTC Interval: 391 msec P-R-T [place]: 49 - -41 - 53 degrees IMPRESSION: SINUS RHYTHM CONSIDER LEFT ATRIAL ABNORMALITY LEFT AXIS DEVIATION [QRS AXIS < -30] BORDERLINE EKG Electronically Signed By: Sohan Andrade Procedure Note Sohan Andrade MD - 08/27/2021 Vent Rate: 66 bpm RR Interval: 902 msec MA Interval: 199 msec QRS Duration: 98 msec QT Interval: 377 msec QTC Interval: 391 msec P-R-T [place]: 49 - -41 - 53 degrees IMPRESSION: SINUS RHYTHM CONSIDER LEFT ATRIAL ABNORMALITY LEFT AXIS DEVIATION [QRS AXIS < -30] BORDERLINE EKG Electronically Signed By: Sohan Andrade us Carson Wolff MD ECG ORDERABLES Final Res ult [facility] * PT/PTT (08/27/2021 10:33 AM CDT) Protime 10.4 9.1 - 12.4 Sec [facility] INR 1.0 [facility] Comment: CLINICAL CORRELATION IS ESSENTIAL: Prophylaxis/treatment/prevention of venous thrombosis/embolism ?INR 2.0 - 3.0 Mechanical prosthetic valves/recurrent systemic embolism ?INR 2.5 - 3.5 PTT 25.2 22.2 - 34.7 Sec [facility] Blood BLOOD SPECIMEN / Unknown 08/27/2021 10:33 AM CDT 08/27/2021 10:38 AM CDT Comment:- Narrative [facility] - 08/27/2021 11:12 AM CDT Testing performed at [facility], [address] [place] [address]. CLIA [id number] Phone [phone] Ext [phone] ??Whiskey Proof Reader Shant Rivas MD us Carson Wolff MD LAB BLOOD ORDERABLES Veronica l Result [facility] [address] [place] [address] [phone] * CBC auto differential (08/27/2021 10:33 AM CDT) WBC 7.2 3.1 - 11.0 x10^3/uL [facility] RBC 4.91 4.29 - 5.55 x10^6/uL [facility] HGB 15.7 13.4 - 16.9 g/dL [facility] HCT 46.3 38.0 - 50.0 % [facility] MCV 94.3 82.0 - 98.0 fL [facility] MCH 32.0 27.2 - 33.3 pg [facility] MCHC 33.9 32.0 - 36.0 g/dL [facility] RDW-CV 11.7 11.4 - 14.2 % [facility] SD-RDW 40.3 36.0 - 47.0 fL [facility] Platelets 174 147 - 370 x10^3/uL [facility] MPV 9.9 9.1 - 12.1 fL [facility] NE% 59.6 42.0 - 76.0 % [facility] %LYMPH 26.4 13.5 - 48.0 % [facility] %MONO 10.5 3.5 - 14.0 % [facility] % Eosinophils 2.8 0.0 - 7.0 % [facility] % Basophils 0.4 0.0 - 1.5 % [facility] Imm Gran Relative 0.3 0.0 - 1.0 % [facility] NE# 4.3 1.2 - 7.3 x10^3/uL [facility] Lymphs # 1.9 0.7 - 3.5 x10^3/uL [facility] [place]# 0.8 0.2 - 0.9 x10^3/uL [facility] Eosinophil # 0.2 0.0 - 0.5 x10^3/uL [facility] Baso# 0.0 0.0 - 0.1 x10^3/uL [facility] Imm Gran Absolute 0.02 0.00 - 0.10 x10^3/uL [facility] NRBC % 0.00 0.00 - 0.10 /100 WBC [facility] Blood 08/27/2021 10:3 3 AM CDT 08/27/2021 10:38 AM CDT Comment:- Narrative [facility] - 08/27/2021 10:41 AM CDT Testing performed at [facility], [address] [place] [address]. CLIA [id number] Phone [phone] Ext [phone] ??Whiskey Proof Reader Shant Rivas MD us Carson Wolff MD LAB BLOOD ORDERABLES Veronica l Result [facility] [address] [place] [address], [facility] [phone] documented in this encounter Visit Diagnoses [...] documented as of this encounter Care Teams Roll Bucker Relationship Specialty Start Date End Date Michell Trevizo MD [address] [place] [address] PCP - General Internal Medicine 05/29/21 02/25/22 Lacey Perdue MD [facility] [address] Referring Physician Infectious Diseases 06/28/18 documented as of this encounter
--- OUTSIDE RECORDS SUMMARY | 2024-11-23 10:15 | XMS_ITS | Encounter Summary ---
Author Organization [employer] Address [address] [place] [address] Care Team Providers Care Electronics Engineering Technologist Name Role Phone Lacey Perdue MD Unavailable [phone] Michell Trevizo MD Primary Care Provider [phone] Reason for Visit * Reason Onset Date Comments Medication Refill 08/28/2021 Encounter Details Date Type Department Care Team (Late st Contact Info) Description 08/28/2021 Refill [facility] ENT [address] [place] [address] Eve Ward, OFFENDER EMPLOYMENT SPECIALIST [address] [place] [address] Social History Tobacco Use Types [...] Author No 10/25/2017 2:00 PM Deonna Padilla, OPERATIONS ANALYST * Are you blind or do you have serious difficulty seeing, even when wearing glasses? Answer Date of Assessment Author No 10/25/2017 2:00 PM Deonna Padilla S, OPERATIONS ANALYST * Do you have serious difficulty walking or climbing stairs? (5 years old or older) Answer Date of Assessment Author No 10/25/2017 2:00 PM Doenna Padilla S, OPERATIONS ANALYST * Do you have difficulty dressing or bathing? (5 years old or older) Answer Date of Assessment Author No 10/25/2017 2:00 PM Deonna Padilla, OPERATIONS ANALYST * Because of a physical, mental, or emotional condition, do you have difficulty doing errands alone such as visiting a doctor's office or shopping? (15 years old or older) Answer Date of Assessment Author No 10/25/2017 2:00 PM Deonna Padilla, OPERATIONS ANALYST documented as of this encounter Mental Status * Because of a physical, mental, or emotional condition, do you have serious difficulty concentrating, remembering, or making decisions? (5 years old or older) Answer Entry Date Author No 10/25/2017 2:00 PM Deonna Padilla OPERATIONS ANALYST documented in this encounter Plan of [...] documented as of this encounter Care Teams Electronics Engineering Technologist Relationship Specialty Start Date End Date Michell Trevizo MD [address] [place] [address] PCP - General Internal Medicine 05/29/21 02/25/22 Lacey Perdue MD [address] [address] Referring Physician Infectious Diseases 06/28/18 documented as of this encounter
--- OUTSIDE RECORDS SUMMARY | 2024-11-23 10:15 | XMS_ITS | Encounter Summary ---
Author Organization [employer] Address [address] [place] [address] Care Team Providers Care Market Development Specialist Name Role Phone Lacey Perdue MD Unavailable [phone] Michell Trevizo MD Primary Care Provider [phone] Encounter Details Date Type Department Care Team (Late st Contact Info) Description 06/10/2021 Orders Only [facility] Centralized Scanning Debby Robledo, AuD [...] Author No 10/25/2017 2:00 PM Deonna Padilla, KICK PRESS OPERATOR * Do you have serious difficulty walking or climbing stairs? (5 years old or older) Answer Date of Assessment Author No 10/25/2017 2:00 PM Deonna Padilla, KICK PRESS OPERATOR * Do you have difficulty dressing or bathing? (5 years old or older) Answer Date of Assessment Author No 10/25/2017 2:00 PM Deonna Padilla, KICK PRESS OPERATOR * Because of a physical, mental, or emotional condition, do you have difficulty doing errands alone such as visiting a doctor's office or shopping? (15 years old or older) Answer Date of Assessment Author No 10/25/2017 2:00 PM Deonna Padilla KICK PRESS OPERATOR documented as of this encounter Mental Status * Because of a physical, mental, or emotional condition, do you have serious difficulty concentrating, remembering, or making decisions? (5 years old or older) Answer Entry Date Author No 10/25/2017 2:00 PM Deonna Padilla, KICK PRESS OPERATOR documented in this encounter Plan of Treatment Not on file documented as of this encounter Goals Goal Patient Goal Type Associated Problems Recent Progress Patient-Stated? Author Blood Pressure < 140/90 Blood Pressure 134/86(2022 2:25 PM CDT) No Leonard Jasso APRN documented as of this encounter Procedures Procedure Name Priority Date/Time Associated Diagnosis Comments VT TYMPANOMETRY Routine 06/05/2021 COMPREHENSIVE HEARING TEST Routine [...] documented as of this encounter Care Teams Market Development Specialist Relationship Specialty Start Date End Date Michell Trevizo MD [address] [place] [address] PCP - General Internal Medicine 05/29/21 02/25/22 Lacey Perdue MD [address] [phone] Referring Physician Infectious Diseases 06/28/18 documented as of this encounter
--- OUTSIDE RECORDS SUMMARY | 2024-11-23 10:15 | XMS_ITS | Encounter Summary ---
Author Organization [employer] Address [address] [place] [address] Care Team Providers Care Straw Baler Name Role Phone Lacey Perdue MD Unavailable [phone] Michell Trevizo MD Primary Care Provider [phone] Encounter Details Date Type Department Care Team (Late st Contact Info) Description 06/05/2021 11:00 AM CDT Evaluation [facility] ENT [address] [place] [address] Debby Robledo, AuD Sensory hearing [...] of Assessment Author No 10/25/2017 2:00 PM HOME HEALTH CARE PROVIDER Galvan, Am y S, PAINTER DRUM * Are you blind or do you have serious difficulty seeing, even when wearing glasses? Answer Date of Assessment Author No 10/25/2017 2:00 PM HOME HEALTH CARE PROVIDER Galvan, Am y S, PAINTER DRUM * Do you have serious difficulty walking or climbing stairs? (5 years old or older) Answer Date of Assessment Author No 10/25/2017 2:00 PM HOME HEALTH CARE PROVIDER Galvan, Am y S, PAINTER DRUM * Do you have difficulty dressing or bathing? (5 years old or older) Answer Date of Assessment Author No 10/25/2017 2:00 PM HOME HEALTH CARE PROVIDER Galvan, Am y S, PAINTER DRUM * Because of a physical, mental, or emotional condition, do you have difficulty doing errands alone such as visiting a doctor's office or shopping? (15 years old or older) Answer Date of Assessment Author No 10/25/2017 2:00 PM HOME HEALTH CARE PROVIDER Galvan, Am y S, PAINTER DRUM documented as of this encounter Mental Status * Because of a physical, mental, or emotional condition, do you have serious difficulty concentrating, remembering, or making decisions? (5 years old or older) Answer Entry Date Author No 10/25/2017 2:00 PM HOME HEALTH CARE PROVIDER Galvan, Am y S, PAINTER DRUM documented in this encounter Progress Notes * [...] hearing loss in the left ear. Speech grounds foreman thresholds were in good agreement with puretone [...] FAAA Doctor of Audiology [facility] [address] [facility] [address] [facility] [address] Dept: [phone] 06/05/21 documented in this encounter Plan of [...] documented as of this encounter Care Teams Straw Baler Relationship Specialty Start Date End Date Michell Trevizo MD [address] [place] [address] PCP - General Internal Medicine 05/29/21 02/25/22 Lacey Perdue MD [address] [place] [address] Referring Physician Infectious Diseases 06/28/18 documented as of this encounter
--- OUTSIDE RECORDS SUMMARY | 2024-11-23 10:15 | XMS_ITS | Encounter Summary ---
Author Organization [employer] Address [address] [place] [address] Care Team Providers Care Brick Chimney Supervisor Name Role Phone Lacey Perdue MD Unavailable [phone] Michell Trevizo MD Primary Care Provider [phone] Reason for Referral * Diagnostic Radiology (Routine) - Closed Specialty Diagnoses / Procedures Referred By Contac t Referred To Contact Diagnoses Cervicalgia Cervical spondylosis without myelopathy Procedures C-Arm Fluoro Limited Edilberto Gann MD [address] [place] [address] Phone: tel: fax: Referral ID Status Reason Start Date Expiration Date Visits Re quested Visits Authorized [id number] Closed 08/27/2021 02/28/2023 1 1 Reason for Visit * Reason Comments Injections * Injections (Routine) - Closed Specialty Diagnoses / Procedures Referred By Contac t Referred To Contact Pain Medicine Diagnoses Cervicalgia Cervical spondylosis without myelopathy Procedures NE NJX DX/THER SBST INTRLMNR CRV/THRC W/IMG GDN C5-6 NOREEN 08/19 Emmanuel Jefferson, ALFONSO [address] [place] [address] Phone: tel: fax: Edilberto Gann MD [address] [place] [address] Phone: tel: fax: Referral ID Status Reason Start Date Expiration Date Visits Re quested Visits Authorized [id number] Closed 08/18/2021 08/18/2022 1 1 Encounter Details Date Type Department Care Team (Late st Contact Info) Description 08/27/2021 10:00 AM CDT Procedure visit [facility] [address] [place] [address] Edilberto Gann MD [address] [place] [phone] Cervicalgia (Primary Dx); Cervical spondylosis without myelopathy [...] Author No 10/25/2017 2:00 PM Deonna Padilla, FAMILY CENTERED SPECIALIST * Do you have serious difficulty walking or climbing stairs? (5 years old or older) Answer Date of Assessment Author No 10/25/2017 2:00 PM Deonna Padilla, FAMILY CENTERED SPECIALIST * Do you have difficulty dressing or bathing? (5 years old or older) Answer Date of Assessment Author No 10/25/2017 2:00 PM Deonna Padilla, FAMILY CENTERED SPECIALIST * Because of a physical, mental, [...] allergy to chlorhexidine, Hibiclens, contrast, or latex. Loan Interviewer Mortgage: documented in this encounter Procedure Notes * Edilberto Gann MD - 08/27/2021 10:00 AM CDTAssociated Order(s): Cervical Epidural Steroid Injection w/ IMG (50308) Post-Procedure Diagnose(s): Cervicalgia; Cervical spondylosis without myelopathy Cervical Epidural Steroid Injection w/ IMG (10245) Date/Time: 08/27/2021 9:53 AM Performed by: Edilberto Gann MD Authorized by: Edilberto Gann MD [place] Protocol: Verbal consent obtained?: Yes Written consent [...] time out verifies correct patient, procedure, equipment, home support worker and site/side marked as required.) Preparation: Preparation: [...] Once the epidural space was confirmed with [id number] to air, and after negative aspiration for [...] Pain) ?? This document was dictated using [employer]; shorthand reporter variances may occur. documented in this encounter [...] AM CDT Cervicalgia Cervical spondylosis without myelopathy NE NJX DX/THER SBST INTRLMNR CRV/THRC W/IMG GDN Routine 08/27/2021 9:53 AM CDT Cervicalgia Cervical spondylosis without myelopathy documented in this encounter Results * C-Arm Fluoro Limited (08/27/2021 10:18 AM CDT) Anatomical Region Laterality Modality Computed Radiogr aphy Narrative 08/27/2021 10:18 AM CDT See Office Visit for documentation. us Edilberto [facility] ORDERAB LES Final Result * NE NJX DX/THER SBST INTRLMNR CRV/THRC W/IMG GDN (08/27/2021 9:53 AM CDT) Narrative Edilberto Gann MD - 08/27/2021 9:53 AM CDT Edilberto Gann MD ? 08/27/2021 10:48 AM Cervical Epidural Steroid Injection w/ IMG ([id number]) Date/Time: 08/27/2021 9:53 AM Performed by: Edilberto Gann MD Authorized by: Edilberto Gann MD [place] Protocol: ?Verbal consent obtained?: Yes ?Written consent [...] time out verifies correct patient, procedure, equipment, home support worker and site/side marked as required.) Preparation: ?Preparation: [...] documented as of this encounter Care Teams Brick Chimney Supervisor Relationship Specialty Start Date End Date Michell Trevizo MD [address] [place] [address] PCP - General Internal Medicine 05/29/21 02/25/22 Lacey Perdue MD [facility] [address] Referring Physician Infectious Diseases 06/28/18 documented as of this encounter
--- OUTSIDE RECORDS SUMMARY | 2024-11-23 10:15 | XMS_ITS | Encounter Summary ---
Author Organization [employer] Address [address] [place] [address] Care Team Providers Care Manager Applied Name Role Phone Lacey Perdue MD Unavailable [phone] Michell Trevizo MD Primary Care Provider [phone] Reason for Visit * Reason Comments [facility] Outpatient Encounter Details Date Type Department Care Team (Latest Contact Info) Description 08/29/2021 9:00 AM CDT Clinical Support [facility] [address] [place] [phone] Carson Wolff MD [address] [place] [phone] Nasal obstruction (Primary Dx); Deviated nasal [...] of Assessment Author No 10/25/2017 2:00 PM MACHINE SET UP TECHNICIAN Deonna Galvan y S, SENIOR ASSISTANT MANAGER * Are you blind or do you have serious difficulty seeing, even when wearing glasses? Answer Date of Assessment Author No 10/25/2017 2:00 PM MACHINE SET UP TECHNICIAN Galvan, Am y S, SENIOR ASSISTANT MANAGER * Do you have serious difficulty walking or climbing stairs? (5 years old or older) Answer Date of Assessment Author No 10/25/2017 2:00 PM MACHINE SET UP TECHNICIAN Cole Am y S, SENIOR ASSISTANT MANAGER * Do you have difficulty dressing or bathing? (5 years old or older) Answer Date of Assessment Author No 10/25/2017 2:00 PM MACHINE SET UP TECHNICIAN Cole Am y S, SENIOR ASSISTANT MANAGER * Because of a physical, mental, or emotional condition, do you have difficulty doing errands alone such as visiting a doctor's office or shopping? (15 years old or older) Answer Date of Assessment Author No 10/25/2017 2:00 PM MACHINE SET UP TECHNICIAN Cole Am y S, SENIOR ASSISTANT MANAGER documented as of this encounter Mental Status * Because of a physical, mental, or emotional condition, do you have serious difficulty concentrating, remembering, or making decisions? (5 years old or older) Answer Entry Date Author No 10/25/2017 2:00 PM MACHINE SET UP TECHNICIAN Deonna Galvan y S, SENIOR ASSISTANT MANAGER documented in this encounter Progress Notes * Carson Wolff MD - 08/29/2021 9:00 AM CDT OPERATIVE REPORT DATE OF SURGERY: 08/29/21 LOCATION OF SURGERY: [facility] ([facility] PRE-OPERATIVE DIAGNOSIS: Nasal septal deviation, bilateral inferior turbinate hypertrophy with obstructed nasal breathing; chronic rhinosinusitis affecting bilateral maxillary, ethmoid, sphenoid sinuses. POST-OPERATIVE DIAGNOSIS: Nasal septal deviation, bilateral inferior turbinate hypertrophy with obstructed nasal breathing; chronic rhinosinusitis affecting bilateral maxillary, ethmoid, sphenoid sinuses. PROCEDURE: Endonasal septoplasty (CPT: 75281) Bilateral inferior turbinate submucous resection (CPT: 62610 modifier 50) Nasal/sinus endoscopy, surgical, with maxillary antrostomy; with removal of tissue from maxillary sinus - bilateral (CPT: 32864; modifier 50) Nasal/sinus endoscopy, surgical, with ethmoidectomy; partial (anterior) - bilateral (CPT: 49167; modifier 50) Nasal/sinus endoscopy, surgical with dilation of sphenoid sinus ostium - bilateral (CPT: 99280, modifier 50) Use of Image Guidance for sinus surgery (CPT: 11308) SURGEON: Carson Wolff MD, PhD ANESTHESIA: shear helper: None EBL: 30 mL SPECIMENS: Right maxillary sinus contents (permanent) IMPLANTS/GRAFTS: Propel Mini curved delivery system (20388) placement in right maxillary (S1091 x 1 units) Propel Mini curved delivery system (82020) placement in left maxillary (S1091 x 1 [...] guidance systemwas then configured according to the interior design professional's instructions and the patient registered with the [...] inferior turbinate and septum was released with [place]. A left septal hemitransfixion incision was made [...] inferior turbinatewas similarly treated with the microdebrider. [place] elevator then used to outfracture the inferior [...] After gently medializing the middle turbinate with [place], the middle meatus was visualized and the [...] After gently medializing the middle turbinate with [place], the middle meatus was visualized and the [...] M.D., Ph.D. Pediatric and General Otolaryngology [facility] documented in this encounter Plan of [...] as of this encounter Care Teams Manager Applied Relationship Specialty Start Date End Date Michell Trevizo MD [address] [place] [address] PCP - General Internal Medicine 05/29/21 02/25/22 Lacey Perdue MD [facility] [address] [phone] Referring Physician Infectious Diseases 06/28/18 documented as of this encounter
--- OUTSIDE RECORDS SUMMARY | 2024-11-23 10:15 | XMS_ITS | Encounter Summary ---
Author Organization [employer] Address [address] [place] [address] Care Team Providers Care Folder Machine Adjuster Name Role Phone Lacey Perdue MD Unavailable [phone] Patient, None Per Primary Care Provider Unavaila ble Encounter Details Date Type Department Care Team (Late st Contact Info) Description 05/01/2021 Transcribe Orders [facility] ENT [address] [place] [address] Eve Ward, THERMOSTATIC CONTROLS SUPERVISOR [address] [place] [address] Social History Tobacco Use Types [...] of Assessment Author No 10/25/2017 2:00 PM [facility] Galvan, Am y S, CAR CLERK PULLMAN * Are you blind or do you have serious difficulty seeing, even when wearing glasses? Answer Date of Assessment Author No 10/25/2017 2:00 PM JOHN Galvan Am y S, CAR CLERK PULLMAN * Do you have serious difficulty walking or climbing stairs? (5 years old or older) Answer Date of Assessment Author No 10/25/2017 2:00 PM PHARMACIST HOSPITAL Cole Am y S, CAR CLERK PULLMAN * Do you have difficulty dressing or bathing? (5 years old or older) Answer Date of Assessment Author No 10/25/2017 2:00 PM PHARMACIST HOSPITAL Deonna Galvan y S, CAR CLERK PULLMAN * Because of a physical, mental, or emotional condition, do you have difficulty doing errands alone such as visiting a doctor's office or shopping? (15 years old or older) Answer Date of Assessment Author No 10/25/2017 2:00 PM JOHN Galvan Am y S, CAR CLERK PULLMAN documented as of this encounter Mental Status * Because of a physical, mental, or emotional condition, do you have serious difficulty concentrating, remembering, or making decisions? (5 years old or older) Answer Entry Date Author No 10/25/2017 2:00 PM JOHN Galvan Am y S, CAR CLERK PULLMAN documented in this encounter Plan of Treatment [...] documented as of this encounter Care Teams Folder Machine Adjuster Relationship Specialty Start Date End Date Patient, None Per PCP - General 05/01/21 05/28/21 Lacey Perdue MD [address] [phone] Referring Physician Infectious Diseases 06/28/18 documented as of this encounter
--- OUTSIDE RECORDS SUMMARY | 2024-11-23 10:15 | XMS_ITS | Encounter Summary ---
Author Organization [employer] Address [address] [place] [address] Care Team Providers Care Crate Repairer Name Role Phone Lacey Perdue MD Unavailable [phone] Patient, None Per Primary Care Provider Unavaila ble Reason for Referral * MRI/CAT Scan (Routine) - Closed Specialty Diagnoses / Procedures Referred By Celine almaguer Referred To Contact Radiology Diagnoses Sinusitis, unspecified chronicity, unspecified location Gastroesophageal reflux disease, unspecified whether esophagitis present Dysphagia, unspecified type Recurrent sinusitis Procedures CT Maxillofacial wo Contrast Brayden Wolff MD [address] [place] [address] Phone: tel: fax: Referral ID Status Reason Start Date Expiration Date Visits Re quested Visits Authorized [id number] Closed 05/06/2021 11/07/2022 1 1 * Diagnostic Radiology (Routine) - Closed Specialty Diagnoses / Procedures Referred By Celine almaguer Referred To Contact Diagnoses Sinusitis, unspecified chronicity, unspecified location Gastroesophageal reflux disease, unspecified whether esophagitis present Dysphagia, unspecified type Recurrent sinusitis Procedures Swallowing Function w Cine Video Brayden Wolff MD [address] [place] [phone] Phone: tel: fax: Referral ID Status Reason Start Date Expiration Date Visits Re quested Visits Authorized [id number] Closed 05/06/2021 11/07/2022 1 1 Encounter Details Date Type Department Care Team (Latest Contact Info) Description 05/06/2021 Transcribe Orders [facility] ENT [address] [place] [address] Eve Ward LPN [address] [place] [address] Dysphagia, unspecified type (Primary Dx); [...] Author No 10/25/2017 2:00 PM Julia Padilla, FINISHED GOODS PLANNER * Are you blind or do you have serious difficulty seeing, even when wearing glasses? Answer Date of Assessment Author No 10/25/2017 2:00 PM Julia Padilla, FINISHED GOODS PLANNER * Do you have serious difficulty walking or climbing stairs? (5 years old or older) Answer Date of Assessment Author No 10/25/2017 2:00 PM Julia Padilla, FINISHED GOODS PLANNER * Do you have difficulty dressing [...] PM CDT Narrative 05/26/2021 3:[address] PM CDT [address] ??[address] DIAGNOSTIC IMAGING Name: EDILBERTO HAWLEY ??Ordering Phys: ANTOLIN, BRAYDEN M Date of : 1955 ?Gender: M ??Accession Number: [id number] EXAM DESCRIPTION: CT MAXILLOFACIAL WO CONTRAST REASON [...] Procedure Note Dayanna Durbin MD - 05/26/2021 [place] [address] DIAGNOSTIC IMAGING Name: EDILBERTO HAWLEY Ordering Phys: ANTOLIN BRAYDEN Bon Date of : 1955 Gender: M Accession Number: [id number] EXAM DESCRIPTION: CT MAXILLOFACIAL WO CONTRAST REASON [...] PM CDT Narrative 05/14/2021 3:47 PM CDT [address] ??[address] DIAGNOSTIC IMAGING Name: EDILBERTO HAWLEYDONITA ??Ordering Phys: BRAYDEN WOLFF Date of : 1955 ?Gender: M ??Accession Number: [id number] EXAM DESCRIPTION: SWALLOWING FUCNTION W CINE VIDEO [...] Procedure Note Dayanna Durbin MD - 05/14/[address] [address] DIAGNOSTIC IMAGING Name: KIZZYEDILBERTO Ordering Phys: BRAYDEN WOLFF Date of : 1955 Gender: M Accession Number: [id number] EXAM DESCRIPTION: SWALLOWING FUCNTION W CINE VIDEO [...] documented as of this encounter Care Teams Crate Repairer Relationship Specialty Start Date End Date Patient, None Per PCP - General 05/01/21 05/28/21 Lacey Perdue MD [address] [phone] Referring Physician Infectious Diseases 06/28/18 documented as of this encounter
--- OUTSIDE RECORDS SUMMARY | 2024-11-23 10:15 | XMS_ITS | Encounter Summary ---
Author Organization [employer] Address [address] [place] [address] Care Team Providers Care Engine Tester Name Role Phone Lacey Perdue MD Unavailable Michell Trevizo MD Primary Care Provider [phone] Patient, None Per Primary Care Provider Unavaila ble Jose Manuel Villegas MD Primary Care Provider Reason for Visit * Reason Comments Follow-up Encounter Details Date Type Department Care Team (Late st Contact Info) Description 09/04/2021 10:00 AM CDT Clinical Support [facility] ENT [address] [place] [address] Jigna Recinos, ECG TECHNICIAN [address] [place] [address] History of nasal septoplasty (Primary [...] No 10/25/2017 2:00 PM Deonna Padilla S, ECG TECHNICIAN * Are you blind or do you have serious difficulty seeing, even when wearing glasses? Answer Date of Assessment Author No 10/25/2017 2:00 PM JOHN Galvan Am y S, ECG TECHNICIAN * Do you have serious difficulty walking or climbing stairs? (5 years old or older) Answer Date of Assessment Author No 10/25/2017 2:00 PM JOHN Galvan Am y S, ECG TECHNICIAN * Do you have difficulty dressing or bathing? (5 years old or older) Answer Date of Assessment Author No 10/25/2017 2:00 PM JOHN Galvan Am y S, ECG TECHNICIAN * Because of a physical, mental, or emotional condition, do you have difficulty doing errands alone such as visiting a doctor's office or shopping? (15 years old or older) Answer Date of Assessment Author No 10/25/2017 2:00 PM JOHN Galvan Am y S, ECG TECHNICIAN documented as of this encounter Mental Status * Because of a physical, mental, or emotional condition, do you have serious difficulty concentrating, remembering, or making decisions? (5 years old or older) Answer Entry Date Author No 10/25/2017 2:00 PM JOHN Galvan Am y S, ECG TECHNICIAN documented in this encounter Progress Notes * Jigna Recinos ARNP - 09/04/2021 10:00 AM CDT OPERATIVE REPORT ?? DATE OF SURGERY: 08/29/21 ?? LOCATION OF SURGERY: [facility] [place] ([facility]) ?? PRE-OPERATIVE DIAGNOSIS: Nasal septal deviation, bilateral inferior turbinate hypertrophy with obstructed nasal breathing; chronic rhinosinusitis affecting bilateral maxillary, ethmoid, sphenoid sinuses. ?? POST-OPERATIVE DIAGNOSIS: Nasal septal deviation, bilateral inferior turbinate hypertrophy with obstructed nasal breathing; chronic rhinosinusitis affecting bilateral maxillary, ethmoid, sphenoid sinuses. ?? PROCEDURE: Endonasal septoplasty (CPT: 07728) Bilateral inferior turbinate submucous resection (CPT: 03781 modifier 50) Nasal/sinus endoscopy, surgical, with maxillary antrostomy; with removal of tissue from maxillary sinus - bilateral (CPT: 85388; modifier 50) Nasal/sinus endoscopy, surgical, with ethmoidectomy; partial (anterior) - bilateral (CPT: 50164; modifier 50) Nasal/sinus endoscopy, surgical with dilation of sphenoid sinus ostium - bilateral (CPT: 36586, modifier 50) Use of Image Guidance for sinus surgery (CPT: 51726) ?? SURGEON: Carson Wolff MD, PhD ?? ANESTHESIA: General ?? ADVANCE AGENT: None ?? EBL: 30 mL ?? SPECIMENS: Right maxillary sinus contents (permanent) ?? IMPLANTS/GRAFTS: Propel Mini curved delivery system (44264) placement in right maxillary (S1091 x 1 units) Propel Mini curved delivery system (91405) placement in left maxillary (S1091 x 1 [...] provider for this encounter. Carson Wolff MD CH BINDING FOLDER documented in this encounter Plan of Treatment [...] documented as of this encounter Care Teams Engine Tester Relationship Specialty Start Date End Date Michell Trevizo MD [address] [place] [address] PCP - General Internal Medicine 05/29/21 02/25/22 Patient, None Per PCP - General 02/26/22 05/11/22 Jose Manuel Villegas MD [address] [place] [address] PCP - General Automobile Brake Bonder 05/12/22 11/25/22 Lacey Perdue MD [address] [place] [phone] Referring Physician Infectious Diseases 06/28/18 documented as of this encounter
--- OUTSIDE RECORDS SUMMARY | 2024-11-23 10:15 | XMS_ITS | Encounter Summary ---
Author Organization [employer] Address [address] [place] [address] Care Team Providers Care Sheet Rock Applier Name Role Phone Lacey Perdue MD Unavailable [phone] Patient, None Per Primary Care Provider Unavaila ble Reason for Visit * Reason Onset Date Comments upcoming injections 05/14/2021 Encounter Details Date Type Department Care Team (Late st Contact Info) Description 05/14/2021 Telephone [facility] [address] [place] [address] Maris Linder, RN [address] [place] [address] upcoming injections Social History Tobacco Use [...] Author No 10/25/2017 2:00 PM Deonna Padilla, CONSTRUCTION MANAGEMENT ASSISTANT * Do you have serious difficulty walking or climbing stairs? (5 years old or older) Answer Date of Assessment Author No 10/25/2017 2:00 PM Deonna Padilla, CONSTRUCTION MANAGEMENT ASSISTANT * Do you have difficulty dressing or bathing? (5 years old or older) Answer Date of Assessment Author No 10/25/2017 2:00 PM Deonna Padilla, CONSTRUCTION MANAGEMENT ASSISTANT * Because of a physical, mental, [...] or facial covering to appointment and their furniture mover driver will need to wait in the car. Patient denies any recent antibiotics or steroids. No allergy to iodine/contrast, chlorhexidine, orlatex. Denies blood thinners. Patient notified of the need for a furniture mover driver and to contact the office should [...] of this encounter Care Teams Sheet Rock Applier Relationship Specialty Start Date End Date Patient, None Per PCP - General 05/01/21 05/28/21 Lacey Perdue MD [address] [phone] Referring Physician Infectious Diseases 06/28/18 documented as of this encounter
--- OUTSIDE RECORDS SUMMARY | 2024-11-23 10:15 | XMS_ITS | Encounter Summary ---
Author Organization [employer] Address [address] [place] [address] Care Team Providers Care Merchandise Team Manager Name Role Phone Lacey Perdue MD Unavailable [phone] Michell Trevizo MD Primary Care Provider [phone] Encounter Details Date Type Department Care Team (Late st Contact Info) Description 06/05/2021 Documentation [facility] ENT [address] [place] [address] Carson Wolff MD [address] [place] [address] Social History Tobacco Use Types [...] 2:00 PM JOHN Galvan Am y S, NURSING PROJECT COORDINATOR * Are you blind or do you have serious difficulty seeing, even when wearing glasses? Answer Date of Assessment Author No 10/25/2017 2:00 PM JOHN Galvan Am y S, NURSING PROJECT COORDINATOR * Do you have serious difficulty walking or climbing stairs? (5 years old or older) Answer Date of Assessment Author No 10/25/2017 2:00 PM JOHN Galvan Am y S, NURSING PROJECT COORDINATOR * Do you have difficulty dressing or bathing? (5 years old or older) Answer Date of Assessment Author No 10/25/2017 2:00 PM JOHN Galvan Am y S, NURSING PROJECT COORDINATOR * Because of a physical, mental, or emotional condition, do you have difficulty doing errands alone such as visiting a doctor's office or shopping? (15 years old or older) Answer Date of Assessment Author No 10/25/2017 2:00 PM Deonna Padilla S, NURSING PROJECT COORDINATOR documented as of this encounter Mental Status * Because of a physical, mental, or emotional condition, do you have serious difficulty concentrating, remembering, or making decisions? (5 years old or older) Answer Entry Date Author No 10/25/2017 2:00 PM Deonna Padilla S, NURSING PROJECT COORDINATOR documented in this encounter Progress Notes [...] Wolff M.D., Ph.D. Pediatric and General Otolaryngology [facility] documented in this encounter Plan [...] documented as of this encounter Care Teams Merchandise Team Manager Relationship Specialty Start Date End Date Michell Trevizo MD [facility] [place] [address] PCP - General Internal Medicine 05/29/21 02/25/22 Lacey Perdue MD [address] [phone] Referring Physician Infectious Diseases 06/28/18 documented as of this encounter
--- OUTSIDE RECORDS SUMMARY | 2024-11-23 10:15 | XMS_ITS | Encounter Summary ---
Author Organization [employer] Address [address] [place] [address] Care Team Providers Care Foundry Patternmaker Name Role Phone Lacey Perdue MD Unavailable [phone] Patient, None Per Primary Care Provider Unavaila ble Reason for Visit * Reason Comments Difficulty Swallowing ([facility]) * Diagnostic Radiology (Routine) - Closed Specialty Diagnoses / Procedures Referred By Celine t Referred To Contact Diagnoses Sinusitis, unspecified chronicity, unspecified location Gastroesophageal reflux disease, unspecified whether esophagitis present Dysphagia, unspecified type Recurrent sinusitis Procedures Swallowing Function w Cine Video Brayden Wolff MD [address] [place] [address] Phone: tel: fax: Referral ID Status Reason Start Date Expiration Date Visits Re quested Visits Authorized [id number] Closed 05/06/2021 11/07/2022 1 1 Encounter Details Date Type Department Care Team (Latest Contact Info) Description 05/14/2021 1:30 PM CDT Clinical Support [facility] [address] [place] [address] Brayden Wolff MD [address] [place] [address] Radha Chandler, RTR [address] [place] [address] Sinusitis, unspecified chronicity, unspecified location; [...] PM CDT Narrative 05/14/2021 3:47 PM [address] ??[address] DIAGNOSTIC IMAGING Name: EDILBERTO HAWLEYDONITA ??Ordering Phys: BRAYDEN WOLFF Date of : 1955 ?Gender: M ??Accession Number: [id number] EXAM DESCRIPTION: SWALLOWING FUCNTION W CINE VIDEO [...] Procedure Note Dayanna Durbin MD - 05/14/[address] [address] DIAGNOSTIC IMAGING Name: EDILBERTO HAWLEYDONITA Ordering Phys: BRAYDEN WOLFF Date of : 1955 Gender: M Accession Number: [id number] EXAM DESCRIPTION: SWALLOWING FUCNTION W CINE VIDEO [...] documented as of this encounter Care Teams Foundry Patternmaker Relationship Specialty Start Date End Date Patient, None Per PCP - General 05/01/21 05/28/21 Lacey Perdue MD [address] [phone] Referring Physician Infectious Diseases 06/28/18 documented as of this encounter
--- OUTSIDE RECORDS SUMMARY | 2024-11-23 10:15 | XMS_ITS | Encounter Summary ---
Author Organization [facility] Address [address] [place] [address] Care Team Providers Care Library Technical Assistant Name Role Phone Lacey Perdue MD Unavailable [phone] Michell Trevizo MD Primary Care Provider Reason for Referral * Diagnostic Radiology (Routine) - Closed Specialty Diagnoses / Procedures Referred By Contac t Referred To Contact Diagnoses Cervical spondylosis without myelopathy Degeneration of cervical intervertebral disc Procedures C-Arm Fluoro Limited Edilberto Gann MD [address] [place] [address] Phone: tel: fax: Referral ID Status Reason Start Date Expiration Date Visits Re quested Visits Authorized [id number] Closed 07/03/2021 01/04/2023 1 1 Reason for Visit * Reason Comments Injections * Injections (Routine) - Closed Specialty Diagnoses / Procedures Referred By Contac t Referred To Contact Pain Medicine Diagnoses Cervical spondylosis without myelopathy Degeneration of cervical intervertebral disc Procedures AK NJX DX/THER SBST INTRLMNR CRV/THRC W/IMG GDN NOREEN 07/08 Emmanuel Jefferson, WEB SITE SPECIALIST [address] [place] [address] Phone: tel: fax: Edilberto Gann MD [address] [place] [address] Phone: tel: fax: Referral ID Status Reason Start Date Expiration Date Visits Re quested Visits Authorized [id number] Closed 06/27/2021 06/27/2022 1 1 Encounter Details Date Type Department Care Team (Late st Contact Info) Description 07/03/2021 2:00 PM CDT Procedure visit [facility] [address] [place] [address] Edilberto Gann MD [address] [place] [address] Cervical spondylosis without myelopathy (Primary Dx); [...] Author No 10/25/2017 2:00 PM Deonna Padilla, SENIOR EDITOR * Are you blind or do you have serious difficulty seeing, even when wearing glasses? Answer Date of Assessment Author No 10/25/2017 2:00 PM Deonna Padilla, SENIOR EDITOR * Do you have serious difficulty walking or climbing stairs? (5 years old or older) Answer Date of Assessment Author No 10/25/2017 2:00 PM Deonna Padilla, SENIOR EDITOR * Do you have difficulty dressing or bathing? (5 years old or older) Answer Date of Assessment Author No 10/25/2017 2:00 PM Deonna Padilla, SENIOR EDITOR * Because of a physical, mental, or emotional condition, do you have difficulty doing errands alone such as visiting a doctor's office or shopping? (15 years old or older) Answer Date of Assessment Author No 10/25/2017 2:00 PM Deonna Padilla, SENIOR EDITOR documented as of this encounter Mental Status [...] allergy to chlorhexidine, Hibiclens, contrast, or latex. Talent Director: documented in this encounter Procedure Notes * Edilberto Gann MD - 07/03/2021 2:00 PM CDTAssociated Order(s): Cervical Epidural Steroid Injection w/ IMG (62056) Post-Procedure Diagnose(s): Cervical spondylosis without myelopathy; Degeneration of cervical intervertebral disc Cervical Epidural Steroid Injection w/ IMG ([id number]) Date/Time: 07/03/2021 1:33 PM Performed by: Edilberto Gann MD Authorized by: Edilberto Gann MD [place] Protocol: Verbal consent obtained?: Yes Written consent [...] time out verifies correct patient, procedure, equipment, support assistant and site/side marked as required.) Preparation: Preparation: [...] Once the epidural space was confirmed with oqht-[id number] to air, and after negative aspiration for [...] (post proc) This document was dictated using Brand[employer]; home comfort advisor variances may occur. documented in this encounter [...] without myelopathy Degeneration of cervical intervertebral disc AK NJX DX/THER SBST INTRLMNR CRV/THRC W/IMG GDN Routine 07/03/2021 1:33 PM CDT Cervical spondylosis without myelopathy Degeneration of cervical intervertebral disc documented in this encounter Results * C-Arm Fluoro Limited (07/03/2021 2:07 PM CDT) Anatomical Region Laterality Modality Computed Radiogr aphy Narrative 07/03/2021 2:07 PM CDT See Office Visit for documentation. us Edilberto [facility] ORDERAB LES Final Result * AK NJX DX/THER SBST INTRLMNR CRV/THRC W/IMG GDN (07/03/2021 1:33 PM CDT) Narrative Edilberto Gann MD - 07/03/2021 1:33 PM CDT Edilberto Gann MD ? 07/03/2021 ??2:13 PM Cervical Epidural Steroid Injection w/ IMG ([id number]) Date/Time: 07/03/2021 1:33 PM Performed by: Edilberto Gann MD Authorized by: Edilberto Gann MD [place] Protocol: ?Verbal consent obtained?: Yes ?Written consent [...] time out verifies correct patient, procedure, equipment, support assistant and site/side marked as required.) Preparation: ?Preparation: [...] documented as of this encounter Care Teams Library Technical Assistant Relationship Specialty Start Date End Date Michell Trevizo MD [address] [place] [address] PCP - General Internal Medicine 05/29/21 02/25/22 Lacey Perdue MD [address] [phone] Referring Physician Infectious Diseases 06/28/18 documented as of this encounter
--- OUTSIDE RECORDS SUMMARY | 2024-11-23 10:15 | XMS_ITS | Encounter Summary ---
Author Organization [employer] Address [address] [place] [address] Care Team Providers Care Steel Shot Header Operator Name Role Phone Lacey Perdue MD Unavailable [phone] Michell Trevizo MD Primary Care Provider [phone] Reason for Visit * Reason Comments Follow-up 1 month Encounter Details Date Type Department Care Team (Latest Contact Info) Description 08/27/2021 11:45 AM CDT Office Visit [facility] Internal Medicine [address] [place] [phone] Michell Trevizo MD [address] [place] [address] Encounter for long-term current use of [...] 2:00 PM JOHN Galvan Am y S, SLIDE DEVELOPER * Are you blind or do you have serious difficulty seeing, even when wearing glasses? Answer Date of Assessment Author No 10/25/2017 2:00 PM SOLDERING MACHINE OPERATOR Cole Am y S, SLIDE DEVELOPER * Do you have serious difficulty walking or climbing stairs? (5 years old or older) Answer Date of Assessment Author No 10/25/2017 2:00 PM SOLDERING MACHINE OPERATOR Cole Am y S, SLIDE DEVELOPER * Do you have difficulty dressing or bathing? (5 years old or older) Answer Date of Assessment Author No 10/25/2017 2:00 PM SOLDERING MACHINE OPERATOR Cole Am y S, SLIDE DEVELOPER * Because of a physical, mental, or emotional condition, do you have difficulty doing errands alone such as visiting a doctor's office or shopping? (15 years old or older) Answer Date of Assessment Author No 10/25/2017 2:00 PM SOLDERING MACHINE OPERATOR Cole Am y S, SLIDE DEVELOPER documented as of this encounter Mental Status * Because of a physical, mental, or emotional condition, do you have serious difficulty concentrating, remembering, or making decisions? (5 years old or older) Answer Entry Date Author No 10/25/2017 2:00 PM SOLDERING MACHINE OPERATOR Cole Am y S, SLIDE DEVELOPER documented in this encounter Progress Notes * Michell Trevizo MD - 08/27/2021 11:45 AM CDT General Internal Medicine Patient Note [facility] CC: Chief Complaint Patient presents with [...] not interested in physical therapy. Behavioral Health ASSISTANT PLANT CONTROLLER offered, not interested. We will allow for steroid injections to take effect and will consider cymbalta ROS: Pertinent positives and negatives as mentioned in HPI Past Medical/Surgical/Family/Social History: Reviewed and updated in [employer] History tab Medications: Reviewed and updated in [facility] Medications tab Current Outpatient Medications [...] documented as of this encounter Care Teams Steel Shot Header Operator Relationship Specialty Start Date End Date Michell Trevizo MD [address] [place] [address] PCP - General Internal Medicine 05/29/21 02/25/22 Lacey Perdue MD [address] [phone] Referring Physician Infectious Diseases 06/28/18 documented as of this encounter
--- OUTSIDE RECORDS SUMMARY | 2024-11-23 10:15 | XMS_ITS | Encounter Summary ---
Author Organization [employer] Address [address] [place] [address] Care Team Providers Care Fabricator Assembler Metal Products Name Role Phone Lacey Perdue MD Unavailable [phone] Michell Trevizo MD Primary Care Provider [phone] Encounter Details Date Type Department Care Team (Late st Contact Info) Description 08/28/2021 11:55 AM CDT Lab [facility] [address] [place] [address] Nasal obstruction; Deviated nasal septum; [...] Author No 10/25/2017 2:00 PM Deonna Padilla, SEAWEED HARVESTER * Are you blind or do you have serious difficulty seeing, even when wearing glasses? Answer Date of Assessment Author No 10/25/2017 2:00 PM Deonna Padilla S, SEAWEED HARVESTER * Do you have serious difficulty walking or climbing stairs? (5 years old or older) Answer Date of Assessment Author No 10/25/2017 2:00 PM Deonna Padilla S, SEAWEED HARVESTER * Do you have difficulty dressing or bathing? (5 years old or older) Answer Date of Assessment Author No 10/25/2017 2:00 PM Deonna Padilla, SEAWEED HARVESTER * Because of a physical, mental, or emotional condition, do you have difficulty doing errands alone such as visiting a doctor's office or shopping? (15 years old or older) Answer Date of Assessment Author No 10/25/2017 2:00 PM Deonna Padilla, SEAWEED HARVESTER documented as of this encounter Mental Status * Because of a physical, mental, or emotional condition, do you have serious difficulty concentrating, remembering, or making decisions? (5 years old or older) Answer Entry Date Author No 10/25/2017 2:00 PM Deonna Padilla, SEAWEED HARVESTER documented in this encounter Progress Notes * [...] 2:08 PM CDT) SARS-CoV-2 PCR NEGATIVE Negative [facility] Comment:The 2019 novel coron avirus (Sars-CoV-2) target nucleic acids are not detected. NASOPHARYNGEAL SWAB / Unknown 08/28/2021 2:08 PM CDT 08/28/2021 2:14 PM CDT Comment:- Narrative [facility] - 08/28/2021 4:12 PM CDT Surgeon Name: La Crescenta Date and time of Surgery: 07/16/21 Surgery Location: [address] [place] [address] Evaluate patient for COVID symptoms and acquire sample. Priority 1: Pre-procedure Indication Reason:->Screening Pre-Procedure Testing is performed by the [employer] GeneXpert real-time, reverse manager cafe polymerase chain reaction (RT-PCR) assay. Testing with [...] available to the physician. Testing performed at [facility], [address] [place] [address]. CLIA [id number] Phone [phone] Ext [phone] ??Brand Marketing Intern Shant Rivas MD Carson Wolff MD MICROBIOLOGY - GENERAL OR DERABLES Final Result [facility] [address] [phone] documented in this encounter Visit Diagnoses [...] documented as of this encounter Care Teams Fabricator Assembler Metal Products Relationship Specialty Start Date End Date Michell Trevizo MD [facility] [place] [address] PCP - General Internal Medicine 05/29/21 02/25/22 Lacey Perdue MD [address] [phone] Referring Physician Infectious Diseases 06/28/18 documented as of this encounter
--- OUTSIDE RECORDS SUMMARY | 2024-11-23 10:15 | XMS_ITS | Encounter Summary ---
Author Organization [employer] Address [address] [place] [address] Care Team Providers Care Home Performance Consultant Name Role Phone Lacey Perdue MD Unavailable [phone] Michell Trevizo MD Primary Care Provider [phone] Encounter Details Date Type Department Care Team [...] of Assessment Author No 10/25/2017 2:00 PM WAREHOUSE FREIGHT HANDLER Galvan, Am y S, DRYING ROOM SUPERVISOR * Do you have serious difficulty walking or climbing stairs? (5 years old or older) Answer Date of Assessment Author No 10/25/2017 2:00 PM Deonna Padilla S, DRYING ROOM SUPERVISOR * Do you have difficulty dressing or bathing? (5 years old or older) Answer Date of Assessment Author No 10/25/2017 2:00 PM Deonna Padilla S, DRYING ROOM SUPERVISOR * Because of a physical, mental, or emotional condition, do you have difficulty doing errands alone such as visiting a doctor's office or shopping? (15 years old or older) Answer Date of Assessment Author No 10/25/2017 2:00 PM JOHN Galvan Am y S, DRYING ROOM SUPERVISOR documented as of this encounter Mental Status * Because of a physical, mental, or emotional condition, do you have serious difficulty concentrating, remembering, or making decisions? (5 years old or older) Answer Entry Date Author No 10/25/2017 2:00 PM Deonna Padilla, DRYING ROOM SUPERVISOR documented in this encounter Plan of [...] documented as of this encounter Care Teams Home Performance Consultant Relationship Specialty Start Date End Date Michell Trevizo MD [address] [place] [address] PCP - General Internal Medicine 05/29/21 02/25/22 Lacey Perdue MD [facility] [phone] Referring Physician Infectious Diseases 06/28/18 documented as of this encounter
--- OUTSIDE RECORDS SUMMARY | 2024-11-23 10:16 | XMS_ITS | Encounter Summary ---
Author Organization [employer] Address [address] [place] [address] Care Team Providers Care Family Services Assistant Name Role Phone Lacey Perdue MD Unavailable [phone] Leonard Jasso APRN Primary Care Provide r Reason for Visit * Reason Comments Medication Refill Encounter Details Date Type Department Care Team (Late st Contact Info) Description 11/11/[address] [address] Leonard Jasso, ANGIE [address] [place] [address] Social History Tobacco Use Types Packs/Day [...] COVID-19? No / Unsure 10/17/2020 7:50 AM SWEATBAND FLANGER documented as of this encounter Functional Status * Are you deaf or do you have serious difficulty hearing? Answer Date of Assessment Author No 10/25/2017 2:00 PM SWEATBAND FLANGER Galvan, Am y S, INSURANCE AGENCY SALES MANAGER * Are you blind or do you have serious difficulty seeing, even when wearing glasses? Answer Date of Assessment Author No 10/25/2017 2:00 PM SWEATBAND FLANGER Cole Am y S, INSURANCE AGENCY SALES MANAGER * Do you have serious difficulty walking or climbing stairs? (5 years old or older) Answer Date of Assessment Author No 10/25/2017 2:00 PM SWEATBAND FLANGER Galvan, Am y S, INSURANCE AGENCY SALES MANAGER * Do you have difficulty dressing or bathing? (5 years old or older) Answer Date of Assessment Author No 10/25/2017 2:00 PM SWEATBAND FLANGER Galvan, Am y S, INSURANCE AGENCY SALES MANAGER * Because of a physical, mental, or emotional condition, do you have difficulty doing errands alone such as visiting a doctor's office or shopping? (15 years old or older) Answer Date of Assessment Author No 10/25/2017 2:00 PM SWEATBAND FLANGER Galvan, Am y S, INSURANCE AGENCY SALES MANAGER documented as of this encounter Mental Status * Because of a physical, mental, or emotional condition, do you have serious difficulty concentrating, remembering, or making decisions? (5 years old or older) Answer Entry Date Author No 10/25/2017 2:00 PM SWEATBAND FLANGER Cole Am y S, INSURANCE AGENCY SALES MANAGER documented in this encounter Plan of Treatment Not on file documented as of this encounter Goals Goal Patient Goal Type Associated Problems Recent Progress Patient-Stated? Author Blood Pressure < 140/90 Blood Pressure 134/86(2022 2:25 PM CDT) No Leonard Jasso APRN documented as of this encounter Visit Diagnoses Not on filedocumented in this encounter Care Teams Family Services Assistant Relationship Specialty Start Date End Date Leonard Jasso APRN [address] [facility] [address] [place] [address] PCP - General Family Medicine 08/15/19 04/30/21 Lacey Perdue MD [address] [address] Referring Physician Infectious Diseases 06/28/18 documented as of this encounter
--- OUTSIDE RECORDS SUMMARY | 2024-11-23 10:16 | XMS_ITS | Encounter Summary ---
Author Organization [employer] Address [address] [place] [address] Care Team Providers Care Imitation Marble Mechanic Name Role Phone Lacey Perdue MD Unavailable [phone] Leonard Jasso APRN Primary Care Provide r [...] COVID-19? No / Unsure 09/17/2020 2:39 PM CHANNELER RUNNER documented as of this encounter Functional Status * Are you deaf or do you have serious difficulty hearing? Answer Date of Assessment Author No 10/25/2017 2:00 PM CHANNELER RUNNER Deonna Galvan ARNP * Are you blind or do you have serious difficulty seeing, even when wearing glasses? Answer Date of Assessment Author No 10/25/2017 2:00 PM CHANNELER RUNNER Deonna Galvan ARNP * Do you have serious difficulty walking or climbing stairs? (5 years old or older) Answer Date of Assessment Author No 10/25/2017 2:00 PM Deonna Padilla, AT RISK SPECIALIST * Do you have difficulty dressing or bathing? (5 years old or older) Answer Date of Assessment Author No 10/25/2017 2:00 PM Deonna Padilla, AT RISK SPECIALIST * Because of a physical, mental, or emotional condition, do you have difficulty doing errands alone such as visiting a doctor's office or shopping? (15 years old or older) Answer Date of Assessment Author No 10/25/2017 2:00 PM Deonna Padilla, AT RISK SPECIALIST documented as of this encounter Mental Status * Because of a physical, mental, or emotional condition, do you have serious difficulty concentrating, remembering, or making decisions? (5 years old or older) Answer Entry Date Author No 10/25/2017 2:00 PM Deonna Padilla, AT RISK SPECIALIST documented in this encounter Plan of Treatment Not on file documented as of this encounter Goals Goal Patient Goal Type Associated Problems Recent Progress Patient-Stated? Author Blood Pressure < 140/90 Blood Pressure 134/86(2022 2:25 PM CDT) No Leonard Jasso APRN documented as of this encounter Visit Diagnoses Not on filedocumented in this encounter Care Teams Imitation Marble Mechanic Relationship Specialty Start Date End Date Leonard Jasso APRN [address] [facility] [address] [place] [address] PCP - General Family Medicine 08/15/19 04/30/21 Lacey Perdue MD [address] [phone] Referring Physician Infectious Diseases 06/28/18 documented as of this encounter
--- OUTSIDE RECORDS SUMMARY | 2024-11-23 10:16 | XMS_ITS | Encounter Summary ---
Author Organization [employer] Address [address] [place] [address] Care Team Providers Care Meter Supervisor Name Role Phone Lacey Perdue MD Unavailable [phone] Leonard Jasso APRN Primary Care Provide r [...] COVID-19? No / Unsure 09/19/2020 11:12 AM BARTENDER documented as of this encounter Functional Status * Are you deaf or do you have serious difficulty hearing? Answer Date of Assessment Author No 10/25/2017 2:00 PM BARTENDER Deonna Galvan ARNP * Are you blind or do you have serious difficulty seeing, even when wearing glasses? Answer Date of Assessment Author No 10/25/2017 2:00 PM BARTENDER Deonna Galvan ARNP * Do you have serious difficulty walking or climbing stairs? (5 years old or older) Answer Date of Assessment Author No 10/25/2017 2:00 PM Deonna Padilla, MAKEUP SALES ADVISOR * Do you have difficulty dressing or bathing? (5 years old or older) Answer Date of Assessment Author No 10/25/2017 2:00 PM Deonna Padilla, MAKEUP SALES ADVISOR * Because of a physical, mental, or emotional condition, do you have difficulty doing errands alone such as visiting a doctor's office or shopping? (15 years old or older) Answer Date of Assessment Author No 10/25/2017 2:00 PM Deonna Padilla, MAKEUP SALES ADVISOR documented as of this encounter Mental Status * Because of a physical, mental, or emotional condition, do you have serious difficulty concentrating, remembering, or making decisions? (5 years old or older) Answer Entry Date Author No 10/25/2017 2:00 PM Deonna Padilla, MAKEUP SALES ADVISOR documented in this encounter Plan of Treatment Not on file documented as of this encounter Goals Goal Patient Goal Type Associated Problems Recent Progress Patient-Stated? Author Blood Pressure < 140/90 Blood Pressure 134/86(2022 2:25 PM CDT) No Leonard Jasso APRN documented as of this encounter Visit Diagnoses Not on filedocumented in this encounter Care Teams Meter Supervisor Relationship Specialty Start Date End Date Leonard Jasso APRN [address] [facility] [address] [place] [address] PCP - General Family Medicine 08/15/19 04/30/21 Lacey Perdue MD [address] [phone] Referring Physician Infectious Diseases 06/28/18 documented as of this encounter
--- OUTSIDE RECORDS SUMMARY | 2024-11-23 10:16 | XMS_ITS | Encounter Summary ---
Author Organization [employer] Address [address] [place] [address] Care Team Providers Care Human Factors Specialist Name Role Phone Lacey Perdue MD Unavailable Leonard Jasso APRN Primary Care Provide r Reason for Visit * Reason Onset Date Comments Medication Refill 01/10/2021 Encounter Details Date Type Department Care Team (Late st Contact Info) Description 01/10/[address] [address] Gisel Richardson, SUKUMAR [address] [facility] [address] [place] [address] Social History Tobacco Use Types Packs/Day [...] COVID-19? No / Unsure 12/18/2020 7:35 AM JEWEL BEARING POLISHER documented as of this encounter Functional Status * Are you deaf or do you have serious difficulty hearing? Answer Date of Assessment Author No 10/25/2017 2:00 PM JEWEL BEARING POLISHER Galvan, Am y S, ORTHOPEDIC BRACE MAKER * Are you blind or do you have serious difficulty seeing, even when wearing glasses? Answer Date of Assessment Author No 10/25/2017 2:00 PM JEWEL BEARING POLISHER Galvan, Am y S, ORTHOPEDIC BRACE MAKER * Do you have serious difficulty walking or climbing stairs? (5 years old or older) Answer Date of Assessment Author No 10/25/2017 2:00 PM JEWEL BEARING POLISHER Galvan, Am y S, ORTHOPEDIC BRACE MAKER * Do you have difficulty dressing or bathing? (5 years old or older) Answer Date of Assessment Author No 10/25/2017 2:00 PM JEWEL BEARING POLISHER Galvan, Am y S, ORTHOPEDIC BRACE MAKER * Because of a physical, mental, or emotional condition, do you have difficulty doing errands alone such as visiting a doctor's office or shopping? (15 years old or older) Answer Date of Assessment Author No 10/25/2017 2:00 PM JEWEL BEARING POLISHER Galvan, Am y S, ORTHOPEDIC BRACE MAKER documented as of this encounter Mental Status * Because of a physical, mental, or emotional condition, do you have serious difficulty concentrating, remembering, or making decisions? (5 years old or older) Answer Entry Date Author No 10/25/2017 2:00 PM JEWEL BEARING POLISHER Galvan, Am y S, ORTHOPEDIC BRACE MAKER documented in this encounter Plan of Treatment Not on file documented as of this encounter Goals Goal Patient Goal Type Associated Problems Recent Progress Patient-Stated? Author Blood Pressure < 140/90 Blood Pressure 134/86(2022 2:25 PM CDT) No Leonard Jasso APRN documented as of this encounter Visit Diagnoses Not on filedocumented in this encounter Care Teams Human Factors Specialist Relationship Specialty Start Date End Date Leonard Jasso APRN 1454 [facility] [address] [place] [address] PCP - General Family Medicine 08/15/19 04/30/21 Lacey Perdue MD [address] [phone] Referring Physician Infectious Diseases 06/28/18 documented as of this encounter
--- OUTSIDE RECORDS SUMMARY | 2024-11-23 10:16 | XMS_ITS | Encounter Summary ---
Author Organization [employer] Address [address] [place] [address] Care Team Providers Care Assessment Consultant Name Role Phone Lacey Perdue MD Unavailable [phone] David Concepcion APRN Primary Care Provide r Reason for Referral * MRI/CAT Scan (Routine) - Closed Specialty Diagnoses / Procedures Referred By Celine almaguer Referred To Contact Radiology Diagnoses Chronic neck pain Radicular pain in right arm Procedures MRI Cervical Spine wo Contrast David Concepcion, PRACTICE PERFORMANCE MANAGER [address] [place] [address] Phone: tel: fax: Referral ID Status Reason Start Date Expiration Date Visits Re quested Visits Authorized [id number] Closed 02/21/2021 02/21/2022 1 1 Reason for Visit * Reason Comments Neck Pain Patient is here for a follow up. Encounter Details Date Type Department Care Team (Late st Contact Info) Description 02/21/2021 2:15 PM CDT Office Visit [address] [address] David Concepcion, PRACTICE PERFORMANCE MANAGER [address] [place] [address] Chronic neck pain (Primary Dx); [...] Patient is here for a follow up. [address] [address] Dept: [phone] Dept Loc: [phone] Loc Date: 02/21/2021 Name: Edilberto Durand : 1955 PCP: TIFFANI Galeano Subjective: Patient ID: Edilberto Durand is a 65 y.o. male. [address] [place] [address] DIAGNOSTIC IMAGING Name: EDILBERTO DURAND Ordering Phys: DAVID CONCEPCION Date of : 1955 Gender: M Accession Number: [id number] EXAM DESCRIPTION: XR CERVICAL SPINE 3 VIEWS [...] Durbin M.D. Narrative 03/12/2021 3:33 PM CDT [address] [place] [address] DIAGNOSTIC IMAGING Name: EDILBERTO DURAND ??Ordering Phys: DAVID CONCEPCION Date of : 1955 ?Gender: M ??Accession Number: [id number] EXAM DESCRIPTION: MRI CERVICAL SPINE WO CONTRAST [...] Procedure Note Dayanna Durbin MD - 03/12/[address] [place] [address] DIAGNOSTIC IMAGING Name: KIZZY EDILBERTO LUISDONITA Ordering Phys: JAMEY DAVID Ashley Date of : 1955 Gender: M Accession Number: [id number] EXAM DESCRIPTION: MRI CERVICAL SPINE WO CONTRAST [...] unspecified documented in this encounter Care Teams Assessment Consultant Relationship Specialty Start Date End Date David Concepcion APRN 1454 [facility] [address] [place] [address] PCP - General Family Medicine 08/15/19 04/30/21 Lacey Perdue MD [address] [phone] Referring Physician Infectious Diseases 06/28/18 documented as of this encounter
--- OUTSIDE RECORDS SUMMARY | 2024-11-23 10:16 | XMS_ITS | Encounter Summary ---
Author Organization [employer] Address [address] [place] [address] Care Team Providers Care Publishing Manager Name Role Phone Lacey Perdue MD Unavailable [phone] Leonard Jasso APRN Primary Care Provide r [...] PM JOHN Galvan Am y S, WATER AND SEWER SYSTEMS SUPERINTENDENT * Do you have difficulty dressing or bathing? (5 years old or older) Answer Date of Assessment Author No 10/25/2017 2:00 PM JOHN Galvan Am y S, WATER AND SEWER SYSTEMS SUPERINTENDENT * Because of a physical, mental, or emotional condition, do you have difficulty doing errands alone such as visiting a doctor's office or shopping? (15 years old or older) Answer Date of Assessment Author No 10/25/2017 2:00 PM JOHN Galvan Am y S, WATER AND SEWER SYSTEMS SUPERINTENDENT documented as of this encounter Mental Status * Because of a physical, mental, or emotional condition, do you have serious difficulty concentrating, remembering, or making decisions? (5 years old or older) Answer Entry Date Author No 10/25/2017 2:00 PM JOHN Galvan Am y S, WATER AND SEWER SYSTEMS SUPERINTENDENT documented in this encounter Plan of Treatment Not on file documented as of this encounter Goals Goal Patient Goal Type Associated Problems Recent Progress Patient-Stated? Author Blood Pressure < 140/90 Blood Pressure 134/86(2022 2:25 PM CDT) No Leonard Jasso APRN documented as of this encounter Visit Diagnoses Not on filedocumented in this encounter Care Teams Publishing Manager Relationship Specialty Start Date End Date Leonard Jasso APRN 1454 [facility] [address] [place] [address] PCP - General Family Medicine 08/15/19 04/30/21 Lacey Perdue MD [address] [phone] Referring Physician Infectious Diseases 06/28/18 documented as of this encounter
--- OUTSIDE RECORDS SUMMARY | 2024-11-23 10:16 | XMS_ITS | Encounter Summary ---
Author Organization [employer] Address [address] [place] [address] Care Team Providers Care Cloth Bleaching Range Tender Name Role Phone Lacey Perdue MD Unavailable [phone] Leonard Jasso APRN Primary Care Provide r [...] COVID-19? No / Unsure 09/24/2020 2:49 PM BUILDING DRAFTING OFFICER documented as of this encounter Functional Status * Are you deaf or do you have serious difficulty hearing? Answer Date of Assessment Author No 10/25/2017 2:00 PM BUILDING DRAFTING OFFICER Deonna Galvan ARNP * Are you blind or do you have serious difficulty seeing, even when wearing glasses? Answer Date of Assessment Author No 10/25/2017 2:00 PM BUILDING DRAFTING OFFICER Deonna Galvan ARNP * Do you have serious difficulty walking or climbing stairs? (5 years old or older) Answer Date of Assessment Author No 10/25/2017 2:00 PM Deonna Padilla, SMELTER OPERATOR * Do you have difficulty dressing or bathing? (5 years old or older) Answer Date of Assessment Author No 10/25/2017 2:00 PM Deonna Padilla, SMELTER OPERATOR * Because of a physical, mental, or emotional condition, do you have difficulty doing errands alone such as visiting a doctor's office or shopping? (15 years old or older) Answer Date of Assessment Author No 10/25/2017 2:00 PM Deonna Padilla, SMELTER OPERATOR documented as of this encounter Mental Status * Because of a physical, mental, or emotional condition, do you have serious difficulty concentrating, remembering, or making decisions? (5 years old or older) Answer Entry Date Author No 10/25/2017 2:00 PM Deonna Padilla, SMELTER OPERATOR documented in this encounter Plan of Treatment Not on file documented as of this encounter Goals Goal Patient Goal Type Associated Problems Recent Progress Patient-Stated? Author Blood Pressure < 140/90 Blood Pressure 134/86(2022 2:25 PM CDT) No Leonard Jasso APRN documented as of this encounter Visit Diagnoses Not on filedocumented in this encounter Care Teams Cloth Bleaching Range Tender Relationship Specialty Start Date End Date Leonard Jasso APRN 1454 [facility] [address] [place] [address] PCP - General Family Medicine 08/15/19 04/30/21 Lacey Perdue MD [address] [phone] Referring Physician Infectious Diseases 06/28/18 documented as of this encounter
--- OUTSIDE RECORDS SUMMARY | 2024-11-23 10:16 | XMS_ITS | Encounter Summary ---
Author Organization [employer] Address [address] [place] [address] Care Team Providers Care Technical Professional Name Role Phone Lacey Perdue MD Unavailable [phone] Leonard Jasso FUNERAL SERVICE MANAGER Primary Care Provide r Reason for Visit * Reason Comments Gastroesophageal Reflux Difficulty Swallowing * Referral (Routine) - Closed Specialty Diagnoses / Procedures Referred By Contjessica almaguer Referred To Contact General Surgery Diagnoses Calculus of gallbladder without cholecystitis without obstruction Leonard Jasso, FUNERAL SERVICE MANAGER [address] [place] [address] Phone: tel: fax: Siddhartha Loyd MD [address] [place] [address] [address] [place] [address] Phone: tel: fax: Referral ID Status Reason Start Date Expiration Date V isits Requested Visits Authorized [id number] Closed Specialty Services Required 09/09/2020 09/09/2021 1 1 Encounter Details Date Type Department Care Team (Latest Contact Info) Description 12/05/2020 10:30 AM BACKROOM ASSOCIATE Initial consult [facility] [address] [place] [address] [address] [place] [address] Siddhartha Loyd MD [address] [place] [address] [address] [place] [address] Dysphasia (Primary Dx); Gastroesophageal reflux [...] COVID-19? No / Unsure 12/05/2020 10:20 AM BACKROOM ASSOCIATE documented as of this encounter Last Filed Vital Signs Vital Sign Reading Time Taken Comments Blood Pressure 128/75 12/05/2020 10:30 AM BACKROOM ASSOCIATE Pulse 80 12/05/2020 10:30 AM BACKROOM ASSOCIATE Temperature 36.3 ??C (97.3 ??F) 12/05/2020 10:[address] Respiratory Rate 16 12/05/2020 10:30 AM BACKROOM ASSOCIATE Oxygen Saturation 96% 12/05/2020 10:30 AM BACKROOM ASSOCIATE Inhaled Oxygen Concentration - - Weight 92.1 kg (203 lb) 12/05/2020 10:30 AM BACKROOM ASSOCIATE Height 180.3 cm (5' 11 ) 12/05/2020 10:30 AM BACKROOM ASSOCIATE Body Mass Index 28.31 12/05/2020 10:30 AM BACKROOM ASSOCIATE documented in this encounter Functional Status * [...] Prerna Vicente RN - 12/05/2020 10:30 AM BACKROOM ASSOCIATE Images from the original note were not included. Your surgery is scheduled for 12/18/2020 at [facility]. Staff from the hospital will call you to inform you of your arrival time for the day of surgery, they will also contact you to set up COVID testing, if appropriate. If you miss their phone call they can be reached at [phone] If you need to cancel for any reason or have questions or concerns please contact our office at [phone] or [phone]. Upper GI Endoscopy: Before Your Procedure [...] option found under the Resources tab in [facility]OZ [email or web address] [email or web address]. If you do not have access to [facility], you can visit [email or web address] and select [employer] from the menu on the left. Enter P790 in the search box to learn more about Upper GI Endoscopy: Before Your Procedure. Not on [facility]? Go to [email or web address] [email or web address] and click the Sign Up Now link to request an activation code. Current as of: February 28, 2020?Content Version: 12.7 ?? [employer]. Care instructions adapted under license by your healthcare professional. This care instruction is for use with your licensed healthcare professional. If you have questions about a medical condition or this instruction, always ask your healthcare professional. [employer] disclaims any warranty or liability for your use of this information. ROOM ASSOCIATE documented in this encounter Progress Notes [...] Osteomyelitis of ankle or foot, acute, right ([facility]) 2018 Stepped on nail ??? Shoulder injury ??? Substance abuse ([facility]) cocaine, crystal meth nothing since 1996 [...] file Gets together: Not on file Attends sikh service: Not on file Active member of [...] to this visit. Siddhartha Loyd MD, FACS ROOM ASSOCIATE documented in this encounter Plan of [...] obstruction documented in this encounter Care Teams Technical Professional Relationship Specialty Start Date End Date Leonard Jasso APRN [address] [facility] [address] [place] [address] PCP - General Family Medicine 08/15/19 04/30/21 Lacey Perdue MD [address] [address] Referring Physician Infectious Diseases 06/28/18 documented as of this encounter
--- OUTSIDE RECORDS SUMMARY | 2024-11-23 10:16 | XMS_ITS | Encounter Summary ---
Author Organization [employer] Address [address] [place] [address] Care Team Providers Care Glove Finisher Name Role Phone Lacey Perdue MD Unavailable [phone] Leonard Jasso APRN Primary Care Provide r Encounter Details Date Type Department Care Team (Late st Contact Info) Description 12/05/2020 Prep for Surgery [facility] [address] [facility] [address] [place] [address] Siddhartha Loyd MD [address] [facility] [address] [place] [address] Dysphasia (Primary Dx) Social History [...] COVID-19? No / Unsure 12/05/2020 10:20 AM ROLLER REPAIRER documented as of this encounter Functional Status * Are you deaf or do you have serious difficulty hearing? Answer Date of Assessment Author No 10/25/2017 2:00 PM ROLLER REPAIRER Deonna Galvan y S, AOC OPERATIONS INTELLIGENCE OFFICER * Are you blind or do you have serious difficulty seeing, even when wearing glasses? Answer Date of Assessment Author No 10/25/2017 2:00 PM ROLLER REPAIRER Deonna Galvan y S, AOC OPERATIONS INTELLIGENCE OFFICER * Do you have serious difficulty walking or climbing stairs? (5 years old or older) Answer Date of Assessment Author No 10/25/2017 2:00 PM ROLLER REPAIRER Deonna Galvan y S, AOC OPERATIONS INTELLIGENCE OFFICER * Do you have difficulty dressing or bathing? (5 years old or older) Answer Date of Assessment Author No 10/25/2017 2:00 PM ROLLER REPAIRER Deonna Galvan y S, AOC OPERATIONS INTELLIGENCE OFFICER * Because of a physical, mental, or emotional condition, do you have difficulty doing errands alone such as visiting a doctor's office or shopping? (15 years old or older) Answer Date of Assessment Author No 10/25/2017 2:00 PM ROLLER REPAIRER Deonna Galvan y S, AOC OPERATIONS INTELLIGENCE OFFICER documented as of this encounter Mental Status * Because of a physical, mental, or emotional condition, do you have serious difficulty concentrating, remembering, or making decisions? (5 years old or older) Answer Entry Date Author No 10/25/2017 2:00 PM JOHN Galvan Am y S, AOC OPERATIONS INTELLIGENCE OFFICER documented in this encounter Plan of Treatment Not on file documented as of this encounter Goals Goal Patient Goal Type Associated Problems Recent Progress Patient-Stated? Author Blood Pressure < 140/90 Blood Pressure 134/86(2022 2:25 PM CDT) No Leonard Jasso APRN documented as of this encounter Visit Diagnoses Diagnosis Dysphasia- Primary Other speech disturbance documented in this encounter Care Teams Glove Finisher Relationship Specialty Start Date End Date Leonard Jasso APRN [address] [facility] [address] [place] [address] PCP - General Family Medicine 08/15/19 04/30/21 Lacey Perdue MD [address] [phone] Referring Physician Infectious Diseases 06/28/18 documented as of this encounter
--- OUTSIDE RECORDS SUMMARY | 2024-11-23 10:16 | XMS_ITS | Encounter Summary ---
Author Organization [employer] Address [address] [place] [address] Care Team Providers Care Busperson Name Role Phone Lacey Perdue MD Unavailable [phone] Leonard Jasso APRN Primary Care Provide r Reason for Visit * Reason Comments Shoulder Pain Patient complains of right shoulder. Encounter Details Date Type Department Care Team (Late st Contact Info) Description 01/15/2021 11:30 AM BELT FIXER Office Visit [address] [id number] Leonard Jasso, ANGIE [address] [place] [phone] Cervical strain, acute, initial encounter (Primary Dx); [...] COVID-19? No / Unsure 01/15/2021 11:18 AM BELT FIXER documented as of this encounter Last Filed Vital Signs Vital Sign Reading Time Taken Comments Blood Pressure 116/74 01/15/2021 11:26 AM BELT FIXER Pulse 89 01/15/2021 11:26 AM BELT FIXER Temperature 36.2 ??C (97.1 ??F) 01/15/2021 11:[address] Respiratory Rate - - Oxygen Saturation 95% 01/15/2021 11:26 AM BELT FIXER Inhaled Oxygen Concentration - - Weight 92.1 kg (203 lb) 01/15/2021 11:26 AM BELT FIXER Height 180.3 cm (5' 11 ) 01/15/2021 11:26 AM BELT FIXER Body Mass Index 28.31 01/15/2021 11:26 AM BELT FIXER documented in this encounter Functional Status * Are you deaf or do you have serious difficulty hearing? Answer Date of Assessment Author No 10/25/2017 2:00 PM Deonna Padilla, MORTGAGE ASSISTANT * Are you blind or do you have serious difficulty seeing, even when wearing glasses? Answer Date of Assessment Author No 10/25/2017 2:00 PM Deonna Padilla, MORTGAGE ASSISTANT * Do you have serious difficulty walking or climbing stairs? (5 years old or older) Answer Date of Assessment Author No 10/25/2017 2:00 PM Deonna Padilla, MORTGAGE ASSISTANT * Do you have difficulty dressing or bathing? (5 years old or older) Answer Date of Assessment Author No 10/25/2017 2:00 PM Deonna Padilla S, MORTGAGE ASSISTANT * Because of a physical, mental, or emotional condition, do you have difficulty doing errands alone such as visiting a doctor's office or shopping? (15 years old or older) Answer Date of Assessment Author No 10/25/2017 2:00 PM BELT FIXER Deonna Galvan, MORTGAGE ASSISTANT documented as of this encounter Mental Status * Because of a physical, mental, or emotional condition, do you have serious difficulty concentrating, remembering, or making decisions? (5 years old or older) Answer Entry Date Author No 10/25/2017 2:00 PM Deonna Padilla, MORTGAGE ASSISTANT documented in this encounter Patient Instructions * Patient Instructions* Leonard Jasso APNP - 01/15/2021 11:30 AM BELT FIXER Rest and go through range of motion as discussed with your shoulder and neck. Warm moist heat to neck and right shoulder. Follow up in office if not better in two weeks. Will probably order xrays if pain continues. Continue current oral narcotics, anti-inflammatories, and muscle relaxer as prescribed. FIXER documented in this encounter Progress Notes * Leonard Jasso APNP - 01/15/2021 11:30 AM CST Chief Complaint Patient presents with ??? Shoulder Pain Patient complains of right shoulder. [address] [address] Dept: [phone] Dept Loc: [phone] Loc Date: 01/15/2021 Name: Edilberto Hawley : [...] 01/15/2021 Signed: TIFFANI Galeano 01/20/2021 8:58 AM FIXER documented in this encounter Plan of Treatment [...] acute, initial encounter Given 01/15/2021 12:51 PM BELT FIXER 60 mg Right Ventrogluteal documented in this encounter Care Teams Busperson Relationship Specialty Start Date End Date Leonard Jasso APRN [address] [facility] [address] [place] [address] PCP - General Family Medicine 08/15/19 04/30/21 Lacey Perdue MD Jose Armando3 Lucila [facility] [address] [place] [phone] Referring Physician Infectious Diseases 06/28/18 documented as of this encounter
--- OUTSIDE RECORDS SUMMARY | 2024-11-23 10:16 | XMS_ITS | Encounter Summary ---
Author Organization [employer] Address [address] [place] [address] Care Team Providers Care Bar Captain Name Role Phone Lacey Perdue MD Unavailable [phone] Leonard Jasso APRN Primary Care Provide r [...] 2:00 PM JOHN Galvan Am y S, INSTRUCTIONAL CONSULTANT * Do you have difficulty dressing or bathing? (5 years old or older) Answer Date of Assessment Author No 10/25/2017 2:00 PM JOHN Galvan Am y S, INSTRUCTIONAL CONSULTANT * Because of a physical, mental, or emotional condition, do you have difficulty doing errands alone such as visiting a doctor's office or shopping? (15 years old or older) Answer Date of Assessment Author No 10/25/2017 2:00 PM JOHN Galvan Am y S, INSTRUCTIONAL CONSULTANT documented as of this encounter Mental Status * Because of a physical, mental, or emotional condition, do you have serious difficulty concentrating, remembering, or making decisions? (5 years old or older) Answer Entry Date Author No 10/25/2017 2:00 PM JOHN Galvan Am y S, INSTRUCTIONAL CONSULTANT documented in this encounter Plan of Treatment Not on file documented as of this encounter Goals Goal Patient Goal Type Associated Problems Recent Progress Patient-Stated? Author Blood Pressure < 140/90 Blood Pressure 134/86(2022 2:25 PM CDT) No Leonard Jasso APRN documented as of this encounter Visit Diagnoses Not on filedocumented in this encounter Care Teams Bar Captain Relationship Specialty Start Date End Date Leonard Jasso APRN [address] [facility] [address] [place] [address] PCP - General Family Medicine 08/15/19 04/30/21 Lacey Perdue MD [address] [phone] Referring Physician Infectious Diseases 06/28/18 documented as of this encounter
--- OUTSIDE RECORDS SUMMARY | 2024-11-23 10:16 | XMS_ITS | Encounter Summary ---
Author Organization [facility] Address [address] [place] [address] Care Team Providers Care Coverage Specialist Rn Name Role Phone Lacey Perdue MD Unavailable [phone] Leonard Jasso APRN Primary Care Provide r Reason for Visit * Reason Comments Wound Check right axilla Encounter Details Date Type Department Care Team (Late st Contact Info) Description 09/24/2020 3:00 PM CINDER PIT WORKER Office Visit [address] [id number] Leonard Jasso, ANGIE [address] [place] [phone] Abscess of right axilla (Primary Dx) Social [...] COVID-19? No / Unsure 09/24/2020 2:49 PM CINDER PIT WORKER documented as of this encounter Last Filed Vital Signs Vital Sign Reading Time Taken Comments Blood Pressure 138/92 09/24/2020 2:54 PM CINDER PIT WORKER Pulse - - Temperature 36.4 ??C (97.5 ??F) 09/24/2020 2:54 PM CS T Respiratory Rate - - Oxygen Saturation - - Inhaled Oxygen Concentration - - Weight 89.6 kg (197 lb 9.6 oz) 09/24/2020 2:54 P M CINDER PIT WORKER Height 180.3 cm (5' 11 ) 09/24/2020 2:54 PM CINDER PIT WORKER Body Mass Index 27.56 09/24/2020 2:54 PM CINDER PIT WORKER documented in this encounter Functional Status * Are you deaf or do you have serious difficulty hearing? Answer Date of Assessment Author No 10/25/2017 2:00 PM CINDER PIT WORKER Deonna Galvan ARNP * Are you blind or do you have serious difficulty seeing, even when wearing glasses? Answer Date of Assessment Author No 10/25/2017 2:00 PM Deonna Padilla ARNP * Do you have serious difficulty walking or climbing stairs? (5 years old or older) Answer Date of Assessment Author No 10/25/2017 2:00 PM Deonna Padilla, LEACHER * Do you have difficulty dressing or [...] Leonard Jasso APNP - 09/24/2020 3:00 PM CINDER PIT WORKER Finish clindamycin exactly as prescribed. Follow up in two days for removal of iodiform gauze. May use right upper extremity as needed as long as there is no discomfort. ER PIT WORKER documented in this encounter Progress Notes * Leonard Jasso APNP - 09/24/2020 3:00 PM CST Chief Complaint Patient presents with ??? Wound Check right axilla [address] [address] Dept: [phone] Dept Loc: [phone] Loc Date: 09/24/2020 Name: Edilberto Hawley : [...] 09/24/2020 Signed: TIFFANI Galeano 09/27/2020 9:06 AM ER PIT WORKER documented in this encounter Plan of [...] forearm documented in this encounter Care Teams Coverage Specialist Rn Relationship Specialty Start Date End Date Leonard Jasso APRN [address] [facility] [address] [place] [address] PCP - General Family Medicine 08/15/19 04/30/21 Lacey Perdue MD [address] [phone] Referring Physician Infectious Diseases 06/28/18 documented as of this encounter
--- OUTSIDE RECORDS SUMMARY | 2024-11-23 10:16 | XMS_ITS | Encounter Summary ---
Author Organization [employer] Address [address] [place] [address] Care Team Providers Care Frame Pulley Mortising Machine Operator Name Role Phone Lacey Perdue MD Unavailable [phone] Leonard Jasso APRN Primary Care Provide r Reason for Visit * Reason Comments Nurse Visit pre-op COVID per Dr. Julio Encounter Details Date Type Department Care Team (Late st Contact Info) Description 12/14/2020 10:00 AM DESIGN/ANIMATION INSTRUCTOR Clinical Support [facility] [address] [place] [address] Mendy Lerma, RN [address] [place] [address] [place] [address] Social History Tobacco Use Types Packs/Day Years [...] COVID-19? No / Unsure 12/11/2020 9:15 AM DESIGN/ANIMATION INSTRUCTOR documented as of this encounter Functional Status * Are you deaf or do you have serious difficulty hearing? Answer Date of Assessment Author No 10/25/2017 2:00 PM DESIGN/ANIMATION INSTRUCTOR Galvan, Am y S, ORACLE ERP DEVELOPER * Are you blind or do you have serious difficulty seeing, even when wearing glasses? Answer Date of Assessment Author No 10/25/2017 2:00 PM DESIGN/ANIMATION INSTRUCTOR Cole Am y S, ORACLE ERP DEVELOPER * Do you have serious difficulty walking or climbing stairs? (5 years old or older) Answer Date of Assessment Author No 10/25/2017 2:00 PM DESIGN/ANIMATION INSTRUCTOR Cole Am y S, ORACLE ERP DEVELOPER * Do you have difficulty dressing or bathing? (5 years old or older) Answer Date of Assessment Author No 10/25/2017 2:00 PM DESIGN/ANIMATION INSTRUCTOR Cole Am y S, ORACLE ERP DEVELOPER * Because of a physical, mental, or emotional condition, do you have difficulty doing errands alone such as visiting a doctor's office or shopping? (15 years old or older) Answer Date of Assessment Author No 10/25/2017 2:00 PM DESIGN/ANIMATION INSTRUCTOR Cole Am y S, ORACLE ERP DEVELOPER documented as of this encounter Mental Status * Because of a physical, mental, or emotional condition, do you have serious difficulty concentrating, remembering, or making decisions? (5 years old or older) Answer Entry Date Author No 10/25/2017 2:00 PM DESIGN/ANIMATION INSTRUCTOR Cole Am y S, ORACLE ERP DEVELOPER documented in this encounter Plan of Treatment Not on file documented as of this encounter Goals Goal Patient Goal Type Associated Problems Recent Progress Patient-Stated? Author Blood Pressure < 140/90 Blood Pressure 134/86(2022 2:25 PM CDT) No Leonard Jasso APRN documented as of this encounter Visit Diagnoses Not on filedocumented in this encounter Care Teams Frame Pulley Mortising Machine Operator Relationship Specialty Start Date End Date Leonard Jasso APRN [address] [facility] [address] [place] [address] PCP - General Family Medicine 08/15/19 04/30/21 Lacey Perdue MD [address] [phone] Referring Physician Infectious Diseases 06/28/18 documented as of this encounter
--- OUTSIDE RECORDS SUMMARY | 2024-11-23 10:16 | XMS_ITS | Encounter Summary ---
Author Organization [employer] Address [address] [place] [address] Care Team Providers Care Nuclear Medical Tech Name Role Phone Lacey Perdue MD Unavailable [phone] Leonard Jasso APRN Primary Care Provide r [...] COVID-19? No / Unsure 01/15/2021 11:18 AM TRAFFIC COORDINATOR documented as of this encounter Functional Status [...] 2:00 PM JOHN Galvan Am y S, SAP BASIS ARCHITECT * Do you have difficulty dressing or bathing? (5 years old or older) Answer Date of Assessment Author No 10/25/2017 2:00 PM JOHN Galvan Am y S, SAP BASIS ARCHITECT * Because of a physical, mental, or emotional condition, do you have difficulty doing errands alone such as visiting a doctor's office or shopping? (15 years old or older) Answer Date of Assessment Author No 10/25/2017 2:00 PM JOHN Galvan Am y S, SAP BASIS ARCHITECT documented as of this encounter Mental Status * Because of a physical, mental, or emotional condition, do you have serious difficulty concentrating, remembering, or making decisions? (5 years old or older) Answer Entry Date Author No 10/25/2017 2:00 PM JOHN Galvan Am y S, SAP BASIS ARCHITECT documented in this encounter Plan of Treatment Not on file documented as of this encounter Goals Goal Patient Goal Type Associated Problems Recent Progress Patient-Stated? Author Blood Pressure < 140/90 Blood Pressure 134/86(2022 2:25 PM CDT) No Leonard Jasso APRN documented as of this encounter Visit Diagnoses Not on filedocumented in this encounter Care Teams Nuclear Medical Tech Relationship Specialty Start Date End Date Leonard Jasso APRN [address] [facility] [address] [place] [address] PCP - General Family Medicine 08/15/19 04/30/21 Lacey Perdue MD [address] [facility] [address] [phone] Referring Physician Infectious Diseases 06/28/18 documented as of this encounter
--- OUTSIDE RECORDS SUMMARY | 2024-11-23 10:16 | XMS_ITS | Encounter Summary ---
Author Organization [employer] Address [address] [place] [address] Care Team Providers Care Sql Consultant Name Role Phone Lacey Perdue MD Unavailable [phone] Leonard Jasso APRN Primary Care Provide r Reason for Visit * Reason Onset Date Comments Natty test positive 12/20/2020 Encounter Details Date Type Department Care Team (Late st Contact Info) Description 12/20/2020 Telephone [facility] [address] [place] [address] Kenneth Wall, RN [address] [place] [address] Natty test positive Social History [...] COVID-19? No / Unsure 12/18/2020 7:35 AM DIRECTOR OF MEDICAL SERVICES documented as of this encounter Functional Status * Are you deaf or do you have serious difficulty hearing? Answer Date of Assessment Author No 10/25/2017 2:00 PM DIRECTOR OF MEDICAL SERVICES Aglvan, Am y S, CLOTH MERCERIZER OPERATOR * Are you blind or do you have serious difficulty seeing, even when wearing glasses? Answer Date of Assessment Author No 10/25/2017 2:00 PM DIRECTOR OF MEDICAL SERVICES Galvan, Am y S, CLOTH MERCERIZER OPERATOR * Do you have serious difficulty walking or climbing stairs? (5 years old or older) Answer Date of Assessment Author No 10/25/2017 2:00 PM DIRECTOR OF MEDICAL SERVICES Galvan, Am y S, CLOTH MERCERIZER OPERATOR * Do you have difficulty dressing or bathing? (5 years old or older) Answer Date of Assessment Author No 10/25/2017 2:00 PM DIRECTOR OF MEDICAL SERVICES Galvan, Am y S, CLOTH MERCERIZER OPERATOR * Because of a physical, mental, or emotional condition, do you have difficulty doing errands alone such as visiting a doctor's office or shopping? (15 years old or older) Answer Date of Assessment Author No 10/25/2017 2:00 PM DIRECTOR OF MEDICAL SERVICES Galvan, Am y S, CLOTH MERCERIZER OPERATOR documented as of this encounter Mental Status * Because of a physical, mental, or emotional condition, do you have serious difficulty concentrating, remembering, or making decisions? (5 years old or older) Answer Entry Date Author No 10/25/2017 2:00 PM DIRECTOR OF MEDICAL SERVICES Galvan, Am y S, CLOTH MERCERIZER OPERATOR documented in this encounter Miscellaneous Notes * Telephone Encounter - Kenneth Wall RN - 01/08/2021 2:13 PM CST Mr. Hawley called the office back and his results and recommendations were given to him. He request the prescriptions be sent to [facility] in [place]. CTOR OF MEDICAL SERVICES * Addendum Note - Kenneth Wall RN - 01/08/2021 2:13 PM CSTAddended by: KENNETH WALL on: 01/08/2021 02:13 PM Modules accepted: Orders CTOR OF MEDICAL SERVICES * Telephone Encounter - Kenneth Wall RN - 12/20/2020 3:22 PM CST Attempted to contact Mr. Hawley to let him know that his Natty test came back positive and inform him of the new medication that Dr. Loyd has prescribed for him. I was unable to contact him, so a message was left to have him call the office back. CTOR OF MEDICAL SERVICES documented in this encounter Plan of [...] pylori) documented in this encounter Care Teams Sql Consultant Relationship Specialty Start Date End Date Leonard Jasso APRN 14[address] [facility] [address] [place] [address] PCP - General Family Medicine 08/15/19 04/30/21 Lacey Perdue MD [address] [phone] Referring Physician Infectious Diseases 06/28/18 documented as of this encounter
--- OUTSIDE RECORDS SUMMARY | 2024-11-23 10:16 | XMS_ITS | Encounter Summary ---
Author Organization [employer] Address [address] [place] [address] Care Team Providers Care Offensive Coordinator Name Role Phone Lacey Perdue MD Unavailable [phone] Leonard Jasso APRN Primary Care Provide r [...] COVID-19? No / Unsure 12/18/2020 7:35 AM LEAN ENGINEER documented as of this encounter Functional [...] 2:00 PM JOHN Galvan Am y S, TANK TRUCK LOADER * Do you have difficulty dressing or bathing? (5 years old or older) Answer Date of Assessment Author No 10/25/2017 2:00 PM JOHN Galvan Am y S, TANK TRUCK LOADER * Because of a physical, mental, or emotional condition, do you have difficulty doing errands alone such as visiting a doctor's office or shopping? (15 years old or older) Answer Date of Assessment Author No 10/25/2017 2:00 PM JOHN Galvan Am y S, TANK TRUCK LOADER documented as of this encounter Mental Status * Because of a physical, mental, or emotional condition, do you have serious difficulty concentrating, remembering, or making decisions? (5 years old or older) Answer Entry Date Author No 10/25/2017 2:00 PM JOHN Galvan Am y S, TANK TRUCK LOADER documented in this encounter Plan of Treatment Not on file documented as of this encounter Goals Goal Patient Goal Type Associated Problems Recent Progress Patient-Stated? Author Blood Pressure < 140/90 Blood Pressure 134/86(2022 2:25 PM CDT) No Leonard Jasso APRN documented as of this encounter Visit Diagnoses Not on filedocumented in this encounter Care Teams Offensive Coordinator Relationship Specialty Start Date End Date Leonard Jasso APRN [address] [facility] [address] [place] [address] PCP - General Family Medicine 08/15/19 04/30/21 Lacey Perdue MD [address] [facility] [address] [phone] Referring Physician Infectious Diseases 06/28/18 documented as of this encounter
--- OUTSIDE RECORDS SUMMARY | 2024-11-23 10:16 | XMS_ITS | Encounter Summary ---
Author Organization [employer] Address [address] [place] [address] Care Team Providers Care Clinical Reviewer Name Role Phone Lacey Perdue MD Unavailable David Concepcion APRN Primary Care Provide r Reason for Referral * Referral (Routine) - Closed Specialty Diagnoses / Procedures Referred By Celine almaguer Referred To Contact Orthopedic Surgery Diagnoses Chronic wrist pain, left David Concepcion, EQUIP MAINT ENG [address] [place] [address] Phone: tel: fax: Silver Mcdermott MD [address] [place] [address] [place] [address] Phone: tel: fax: Referral ID Status Reason Start Date Expiration Date V isits Requested Visits Authorized [id number] Closed Specialty Services Required 01/29/2021 01/29/2022 1 1 * Referral (Routine) - Closed Specialty Diagnoses / Procedures Referred By Celine almaguer Referred To Contact Otolaryngology Diagnoses Dysphasia David Concepcion, EQUIP MAINT ENG [address] [place] [address] Phone: tel: fax: Carson Wolff MD [address] [place] [address] Phone: tel: fax: Referral ID Status Reason Start Date Expiration Date V isits Requested Visits Authorized [id number] Closed Specialty Services Required 01/29/2021 01/29/2022 1 1 Reason for Visit * Reason Comments Results Patient is here to d iscuss xray results. Would also like a referral to ENT. Encounter Details Date Type Department Care Team (Late st Contact Info) Description 01/29/2021 11:00 AM CDT Office Visit [address] [address] David Concepcion, EQUIP MAINT ENG [address] [place] [address] Dysphasia (Primary Dx); Chronic wrist [...] of Assessment Author No 10/25/2017 2:00 PM PILATES INSTRUCTOR Deonna Galvan S, TURBOGENERATOR OPERATOR * Are you blind or do you have serious difficulty seeing, even when wearing glasses? Answer Date of Assessment Author No 10/25/2017 2:00 PM PILATES INSTRUCTOR Deonna Galvan y S, TURBOGENERATOR OPERATOR * Do you have serious difficulty walking or climbing stairs? (5 years old or older) Answer Date of Assessment Author No 10/25/2017 2:00 PM PILATES INSTRUCTOR Deonna Galvan y S, TURBOGENERATOR OPERATOR * Do you have difficulty dressing or bathing? (5 years old or older) Answer Date of Assessment Author No 10/25/2017 2:00 PM PILATES INSTRUCTOR Deonna Galvan y S, TURBOGENERATOR OPERATOR * Because of a physical, mental, or emotional condition, do you have difficulty doing errands alone such as visiting a doctor's office or shopping? (15 years old or older) Answer Date of Assessment Author No 10/25/2017 2:00 PM PILATES INSTRUCTOR Deonna Galvan y S, TURBOGENERATOR OPERATOR documented as of this encounter Mental Status * Because of a physical, mental, or emotional condition, do you have serious difficulty concentrating, remembering, or making decisions? (5 years old or older) Answer Entry Date Author No 10/25/2017 2:00 PM Deonna Padilla S, TURBOGENERATOR OPERATOR documented in this encounter Patient Instructions [...] Would also like a referral to ENT. [place] [id number] [facility] [address] Dept: [phone] Dept Loc: [phone] Loc Date: 01/29/2021 Name: Edilberto Hawley : 1955 PCP: TIFFANI Galeano Subjective: Patient ID: Edilberto Hawley is a 65 y.o. male. [address] [place] [address] DIAGNOSTIC IMAGING Name: EDILBERTO HAWLEY Ordering Phys: DAVID CONCEPCION Date of : 1955 Gender: M Accession Number: [id number] EXAM DESCRIPTION: XR CERVICAL SPINE 3 VIEWS [...] 3 months. 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 [...] left documented in this encounter Care Teams Clinical Reviewer Relationship Specialty Start Date End Date David Concepcion APRN [address]54 [facility] [address] [place] [address] PCP - General Family Medicine 08/15/19 04/30/21 Lacey Perdue MD [address] [phone] Referring Physician Infectious Diseases 06/28/18 documented as of this encounter
--- OUTSIDE RECORDS SUMMARY | 2024-11-23 10:16 | XMS_ITS | Encounter Summary ---
Author Organization [employer] Address [address] [place] [address] Care Team Providers Care Tire Mold Tester Name Role Phone Lacey Perdue MD Unavailable [phone] Leonard Jasso APRN Primary Care Provide r Reason for Visit * Reason Onset Date Comments Medication Refill 10/17/2020 Encounter Details Date Type Department Care Team (Late st Contact Info) Description 10/17/[address] [place] [id number] [facility] [address] [place] [address] Zoey Seaman, LEIGHTON [address] [facility] [address] [place] [address] Medication Refill Social History Tobacco [...] COVID-19? No / Unsure 10/17/2020 7:50 AM SPEECH THERAPIST documented as of this encounter Functional Status * Are you deaf or do you have serious difficulty hearing? Answer Date of Assessment Author No 10/25/2017 2:00 PM SPEECH THERAPIST Cole, Am y S, MORTUARY TECHNICIAN * Are you blind or do you have serious difficulty seeing, even when wearing glasses? Answer Date of Assessment Author No 10/25/2017 2:00 PM SPEECH THERAPIST Galvan, Am y S, MORTUARY TECHNICIAN * Do you have serious difficulty walking or climbing stairs? (5 years old or older) Answer Date of Assessment Author No 10/25/2017 2:00 PM SPEECH THERAPIST Galvan, Am y S, MORTUARY TECHNICIAN * Do you have difficulty dressing or bathing? (5 years old or older) Answer Date of Assessment Author No 10/25/2017 2:00 PM SPEECH THERAPIST Galvan, Am y S, MORTUARY TECHNICIAN * Because of a physical, mental, or emotional condition, do you have difficulty doing errands alone such as visiting a doctor's office or shopping? (15 years old or older) Answer Date of Assessment Author No 10/25/2017 2:00 PM SPEECH THERAPIST Cole, Am y S, MORTUARY TECHNICIAN documented as of this encounter Mental Status * Because of a physical, mental, or emotional condition, do you have serious difficulty concentrating, remembering, or making decisions? (5 years old or older) Answer Entry Date Author No 10/25/2017 2:00 PM SPEECH THERAPIST Deonna Galvan y S, MORTUARY TECHNICIAN documented in this encounter Miscellaneous Notes * Telephone Encounter - Zoey Seaman LPN - 10/17/2020 10:01 AM CST Patient seeing Dylan today he will address refill. CH THERAPIST * Telephone Encounter - Zoey Seaman LPN - 10/17/2020 9:58 AM CST ----- Message from Mckinley Willett sent at 10/02/2020 2:30 PM SPEECH THERAPIST ----- Provider: Romero / BETHANIE Mullins: Medication Refill Who Called? Patient Is the patient active on MyChart?: No Patient call back number: (home) Have you spoken with pharmacy regarding this refill? No Medication: Clindamycin 300 mg Do you have any questions about this medication? No Preferred Pharmacy: [facility] Patient states he still has infection and is out of clindamycin. Patient has appt with Dylan 10/17 The patient was informed: This medication will be sent directly to the pharmacy. If there is a problem with the medication refill, the clinic staff will contact you. CH THERAPIST documented in this encounter Plan of Treatment Not on file documented as of this encounter Goals Goal Patient Goal Type Associated Problems Recent Progress Patient-Stated? Author Blood Pressure < 140/90 Blood Pressure 134/86(2022 2:25 PM CDT) No Leonard Jasso APRN documented as of this encounter Visit Diagnoses Not on filedocumented in this encounter Care Teams Tire Mold Tester Relationship Specialty Start Date End Date Leonard Jasso APRN 14[address] [facility] [address] [place] [address] PCP - General Family Medicine 08/15/19 04/30/21 Lacey Perdue MD [address] [phone] Referring Physician Infectious Diseases 06/28/18 documented as of this encounter
--- OUTSIDE RECORDS SUMMARY | 2024-11-23 10:16 | XMS_ITS | Encounter Summary ---
Author Organization [facility] Address [address] [place] [address] Care Team Providers Care Solvent Recoverer Name Role Phone Lacey Perdue MD Unavailable Leonard Jasso APRN Primary Care Provide r Reason for Visit * Reason Comments Medication Refill Encounter Details Date Type Department Care Team (Late st Contact Info) Description 10/14/[address] [address] Leonard Jasso, ANGIE [address] [place] [address] Social History Tobacco Use Types Packs/Day [...] COVID-19? No / Unsure 09/24/2020 2:49 PM LAUNDRY MACHINE OPERATOR documented as of this encounter Functional Status * Are you deaf or do you have serious difficulty hearing? Answer Date of Assessment Author No 10/25/2017 2:00 PM LAUNDRY MACHINE OPERATOR Galvan, Am y S, WING COMMANDER * Are you blind or do you have serious difficulty seeing, even when wearing glasses? Answer Date of Assessment Author No 10/25/2017 2:00 PM LAUNDRY MACHINE OPERATOR Cole Am y S, WING COMMANDER * Do you have serious difficulty walking or climbing stairs? (5 years old or older) Answer Date of Assessment Author No 10/25/2017 2:00 PM LAUNDRY MACHINE OPERATOR Galvan, Am y S, WING COMMANDER * Do you have difficulty dressing or bathing? (5 years old or older) Answer Date of Assessment Author No 10/25/2017 2:00 PM LAUNDRY MACHINE OPERATOR Galvan, Am y S, WING COMMANDER * Because of a physical, mental, or emotional condition, do you have difficulty doing errands alone such as visiting a doctor's office or shopping? (15 years old or older) Answer Date of Assessment Author No 10/25/2017 2:00 PM LAUNDRY MACHINE OPERATOR Galvan, Am y S, WING COMMANDER documented as of this encounter Mental Status * Because of a physical, mental, or emotional condition, do you have serious difficulty concentrating, remembering, or making decisions? (5 years old or older) Answer Entry Date Author No 10/25/2017 2:00 PM LAUNDRY MACHINE OPERATOR Cole Am y S, WING COMMANDER documented in this encounter Plan of Treatment Not on file documented as of this encounter Goals Goal Patient Goal Type Associated Problems Recent Progress Patient-Stated? Author Blood Pressure < 140/90 Blood Pressure 134/86(2022 2:25 PM CDT) No Leonard Jasso APRN documented as of this encounter Visit Diagnoses Not on filedocumented in this encounter Care Teams Solvent Recoverer Relationship Specialty Start Date End Date Leonard Jasso APRN 1454 [facility] [address] [place] [address] PCP - General Family Medicine 08/15/19 04/30/21 Lacey Perdue MD [address] [phone] Referring Physician Infectious Diseases 06/28/18 documented as of this encounter
--- OUTSIDE RECORDS SUMMARY | 2024-11-23 10:16 | XMS_ITS | Encounter Summary ---
Author Organization [employer] Address [address] [place] [address] Care Team Providers Care Bottle Dealer Name Role Phone Lacey Perdue MD Unavailable [phone] David Concepcion APRN Primary Care Provide r Encounter Details Date Type Department Care Team (Latest Contact Info) Description 01/27/2021 4:30 PM CDT - 01/27/2021 11:59 PM CDT Hospital Encounter [facility] General Radiology [address] [place] [phone] Chronic neck pain Discharge Disposition: Home - [...] of Assessment Author No 10/25/2017 2:00 PM TRAY CASTING MACHINE OPERATOR Deonna Galvan, GEORGE * Are you [...] 134/86(2022 2:25 PM CDT) No David Concepcion, BRANCH SERVICE SPECIALIST documented as of this encounter Procedures Procedure [...] by Dayanna Arthur 01/27/2021 5:55 PM CDT [address] [place] [address] DIAGNOSTIC IMAGING Name: ROSARIO DURANDEd DELONG ??Ordering Phys: DAVID CONCEPCION Date of : 1955 ?Gender: M ??Accession Number: [id number] EXAM DESCRIPTION: XR CERVICAL SPINE 3 VIEWS [...] Procedure Note Dayanna Durbin MD - 01/27/[address] [place] [id number] DIAGNOSTIC IMAGING Name: EDILBERTO DURAND Ordering Phys: DAVID CONCEPCION Date of : 1955 Gender: M Accession Number: [id number] EXAM DESCRIPTION: XR CERVICAL SPINE 3 VIEWS [...] Cervicalgia documented in this encounter Care Teams Bottle Dealer Relationship Specialty Start Date End Date David Concepcion APRN [address] [place] [address] [address] [place] [address] PCP - General Family Medicine 08/15/19 04/30/21 Lacey Perdue MD [address] [facility] [address] [place] [phone] Referring Physician Infectious Diseases 06/28/18 documented as of this encounter
--- OUTSIDE RECORDS SUMMARY | 2024-11-23 10:16 | XMS_ITS | Encounter Summary ---
Author Organization [employer] Address [address] [place] [address] Care Team Providers Care Skein Drier Name Role Phone Lacey Perdue MD Unavailable [phone] Leonard Jasso APRN Primary Care Provide r Reason for Visit * Reason Onset Date Comments Medication Refill 02/06/2021 Encounter Details Date Type Department Care Team (Late st Contact Info) Description 02/06/[address] [address] Gisel Richardson, SUKUMAR 1454 [facility] [address] [place] [address] Social History Tobacco Use Types Packs/Day [...] of Assessment Author No 10/25/2017 2:00 PM CONTRACTS ADMINISTRATOR Galvan, Am y S, GAMING ASSOCIATE * Are you blind or do you have serious difficulty seeing, even when wearing glasses? Answer Date of Assessment Author No 10/25/2017 2:00 PM CONTRACTS ADMINISTRATOR Galvan, Am y S, GAMING ASSOCIATE * Do you have serious difficulty walking or climbing stairs? (5 years old or older) Answer Date of Assessment Author No 10/25/2017 2:00 PM CONTRACTS ADMINISTRATOR Galvan, Am y S, GAMING ASSOCIATE * Do you have difficulty dressing or bathing? (5 years old or older) Answer Date of Assessment Author No 10/25/2017 2:00 PM CONTRACTS ADMINISTRATOR Galvan, Am y S, GAMING ASSOCIATE * Because of a physical, mental, or emotional condition, do you have difficulty doing errands alone such as visiting a doctor's office or shopping? (15 years old or older) Answer Date of Assessment Author No 10/25/2017 2:00 PM CONTRACTS ADMINISTRATOR Galvan, Am y S, GAMING ASSOCIATE documented as of this encounter Mental Status * Because of a physical, mental, or emotional condition, do you have serious difficulty concentrating, remembering, or making decisions? (5 years old or older) Answer Entry Date Author No 10/25/2017 2:00 PM CONTRACTS ADMINISTRATOR Galvan, Am y S, GAMING ASSOCIATE documented in this encounter Plan of Treatment Not on file documented as of this encounter Goals Goal Patient Goal Type Associated Problems Recent Progress Patient-Stated? Author Blood Pressure < 140/90 Blood Pressure 134/86(2022 2:25 PM CDT) No Leonard Jasso APRN documented as of this encounter Visit Diagnoses Not on filedocumented in this encounter Care Teams Skein Drier Relationship Specialty Start Date End Date Leonard Jasso APRN 1454 [facility] [address] [place] [address] PCP - General Family Medicine 08/15/19 04/30/21 Lacey Perdue MD [address] [phone] Referring Physician Infectious Diseases 06/28/18 documented as of this encounter
--- OUTSIDE RECORDS SUMMARY | 2024-11-23 10:16 | XMS_ITS | Encounter Summary ---
Author Organization [employer] Address [address] [place] [address] Care Team Providers Care County Agent Name Role Phone Lacey Perdue MD Unavailable [phone] Leonard Jasso APRN Primary Care Provide r Reason for Visit * Reason Comments Abscess Encounter Details Date Type Department Care Team (Latest Contact Info) Description 10/17/2020 8:00 AM QUOTATION CHECKER Office Visit [facility] [address] [place] [address] Siddhartha Loyd MD [address] [place] [address] [address] [place] [address] Calculus of gallbladder without cholecystitis [...] COVID-19? No / Unsure 10/17/2020 7:50 AM QUOTATION CHECKER documented as of this encounter Last Filed Vital Signs Vital Sign Reading Time Taken Comments Blood Pressure 138/78 10/17/2020 8:15 AM QUOTATION CHECKER Pulse 69 10/17/2020 8:15 AM QUOTATION CHECKER Temperature 36.6 ??C (97.8 ??F) 10/17/2020 8:15 AM CS T Respiratory Rate 16 10/17/2020 8:15 AM QUOTATION CHECKER Oxygen Saturation 97% 10/17/2020 8:15 AM QUOTATION CHECKER Inhaled Oxygen Concentration - - Weight 93.9 kg (207 lb) 10/17/2020 8:15 AM QUOTATION CHECKER Height 180.3 cm (5' 11 ) 10/17/2020 8:15 AM QUOTATION CHECKER Body Mass Index 28.87 10/17/2020 8:15 AM QUOTATION CHECKER documented in this encounter Functional Status * Are you deaf or do you have serious difficulty hearing? Answer Date of Assessment Author No 10/25/2017 2:00 PM Deonna Padilla, COMMERCIAL KITCHEN SERVICE TECHNICIAN * Are you blind or do you have serious difficulty seeing, even when wearing glasses? Answer Date of Assessment Author No 10/25/2017 2:00 PM Deonna Padilla, COMMERCIAL KITCHEN SERVICE TECHNICIAN * Do you have serious difficulty walking or climbing stairs? (5 years old or older) Answer Date of Assessment Author No 10/25/2017 2:00 PM Deonna Padilla, COMMERCIAL KITCHEN SERVICE TECHNICIAN * Do you have difficulty dressing or bathing? (5 years old or older) Answer Date of Assessment Author No 10/25/2017 2:00 PM Deonna Padilla, COMMERCIAL KITCHEN SERVICE TECHNICIAN * Because of a physical, mental, or emotional condition, do you have difficulty doing errands alone such as visiting a doctor's office or shopping? (15 years old or older) Answer Date of Assessment Author No 10/25/2017 2:00 PM Deonna Padilla, COMMERCIAL KITCHEN SERVICE TECHNICIAN documented as of this encounter Mental Status * Because of a physical, mental, or emotional condition, do you have serious difficulty concentrating, remembering, or making decisions? (5 years old or older) Answer Entry Date Author No 10/25/2017 2:00 PM Deonna Padilla, COMMERCIAL KITCHEN SERVICE TECHNICIAN documented in this encounter Progress Notes [...] Osteomyelitis of ankle or foot, acute, right ([facility]) 2018 Stepped on nail ??? Shoulder injury [...] file Gets together: Not on file Attends gnosticist service: Not on file Active member of [...] follow-ups on file. Siddhartha Loyd MD, FACS ATION CHECKER documented in this encounter Plan of Treatment [...] forearm documented in this encounter Care Teams County Agent Relationship Specialty Start Date End Date Leonard Jasso APRN [facility] [address] [place] [address] PCP - General Family Medicine 08/15/19 04/30/21 Lacey Perdue MD [address] [phone] Referring Physician Infectious Diseases 06/28/18 documented as of this encounter
--- OUTSIDE RECORDS SUMMARY | 2024-11-23 10:16 | XMS_ITS | Encounter Summary ---
Author Organization [employer] Address [address] [place] [address] Care Team Providers Care Family Dinner Service Specialist Name Role Phone Lacey Perdue MD Unavailable [phone] Leonard Jasso APRN Primary Care Provide r Reason for Visit * Reason Onset Date Comments Medication Refill 12/16/2020 Encounter Details Date Type Department Care Team (Late st Contact Info) Description 12/16/[address] [address] Gisel Richardson, SUKUMAR 1454 [facility] [address] [place] [address] Social History Tobacco Use Types Packs/Day [...] COVID-19? No / Unsure 12/11/2020 9:15 AM BARREL TESTER documented as of this encounter Functional Status * Are you deaf or do you have serious difficulty hearing? Answer Date of Assessment Author No 10/25/2017 2:00 PM BARREL TESTER Galvan, Am y S, RUBBER TIRE CURER * Are you blind or do you have serious difficulty seeing, even when wearing glasses? Answer Date of Assessment Author No 10/25/2017 2:00 PM BARREL TESTER Galvan, Am y S, RUBBER TIRE CURER * Do you have serious difficulty walking or climbing stairs? (5 years old or older) Answer Date of Assessment Author No 10/25/2017 2:00 PM BARREL TESTER Galvan, Am y S, RUBBER TIRE CURER * Do you have difficulty dressing or bathing? (5 years old or older) Answer Date of Assessment Author No 10/25/2017 2:00 PM BARREL TESTER Galvan, Am y S, RUBBER TIRE CURER * Because of a physical, mental, or emotional condition, do you have difficulty doing errands alone such as visiting a doctor's office or shopping? (15 years old or older) Answer Date of Assessment Author No 10/25/2017 2:00 PM BARREL TESTER Galvan, Am y S, RUBBER TIRE CURER documented as of this encounter Mental Status * Because of a physical, mental, or emotional condition, do you have serious difficulty concentrating, remembering, or making decisions? (5 years old or older) Answer Entry Date Author No 10/25/2017 2:00 PM BARREL TESTER Nessa Galvan my S, RUBBER TIRE CURER documented in this encounter Plan of Treatment Not on file documented as of this encounter Goals Goal Patient Goal Type Associated Problems Recent Progress Patient-Stated? Author Blood Pressure < 140/90 Blood Pressure 134/86(2022 2:25 PM CDT) No Leonard Jasso APRN documented as of this encounter Visit Diagnoses Not on filedocumented in this encounter Care Teams Family Dinner Service Specialist Relationship Specialty Start Date End Date Leonard Jasso APRN 1454 [facility] [address] [place] [address] PCP - General Family Medicine 08/15/19 04/30/21 Lacey Perdue MD [address] [phone] Referring Physician Infectious Diseases 06/28/18 documented as of this encounter
--- OUTSIDE RECORDS SUMMARY | 2024-11-23 10:16 | XMS_ITS | Encounter Summary ---
Author Organization [employer] Address [address] [place] [address] Care Team Providers Care Show Operations Supervisor Name Role Phone Lacey Perdue MD Unavailable [phone] Leonard Jasso APRN Primary Care Provide r Reason for Visit * Reason Comments Recurrent Skin Infections right axillae. Encounter Details Date Type Department Care Team (Late st Contact Info) Description 09/17/2020 3:00 PM EMERGENCY DEPARTMENT Office Visit [address] [phone] Leonard Jasso APRN [address] [place] [address] [phone] Abscess of right axilla (Primary Dx) Social [...] COVID-19? No / Unsure 09/19/2020 11:12 AM EMERGENCY DEPARTMENT documented as of this encounter Last Filed Vital Signs Vital Sign Reading Time Taken Comments Blood Pressure 142/76 09/17/2020 2:58 PM EMERGENCY DEPARTMENT Pulse 83 09/17/2020 2:58 PM EMERGENCY DEPARTMENT Temperature 36.9 ??C (98.4 ??F) 09/17/2020 2:58 PM CS T Respiratory Rate - - Oxygen Saturation 96% 09/17/2020 2:58 PM EMERGENCY DEPARTMENT Inhaled Oxygen Concentration - - Weight 88.9 kg (196 lb) 09/17/2020 2:58 PM EMERGENCY DEPARTMENT Height 180.3 cm (5' 11 ) 09/17/2020 2:58 PM EMERGENCY DEPARTMENT Body Mass Index 27.34 09/17/2020 2:58 PM EMERGENCY DEPARTMENT documented in this encounter Functional Status * Are you deaf or do you have serious difficulty hearing? Answer Date of Assessment Author No 10/25/2017 2:00 PM EMERGENCY DEPARTMENT Deonna Galvan, HEALTH POLICY ANALYST * Are you blind or do you have serious difficulty seeing, even when wearing glasses? Answer Date of Assessment Author No 10/25/2017 2:00 PM Deonna Padilla, HEALTH POLICY ANALYST * Do you have serious difficulty walking or climbing stairs? (5 years old or older) Answer Date of Assessment Author No 10/25/2017 2:00 PM EMERGENCY DEPARTMENT Deonna Galvan, HEALTH POLICY ANALYST * Do you have difficulty dressing or bathing? (5 years old or older) Answer Date of Assessment Author No 10/25/2017 2:00 PM EMERGENCY DEPARTMENT Deonna Galvan, HEALTH POLICY ANALYST * Because of a physical, mental, or emotional condition, do you have difficulty doing errands alone such as visiting a doctor's office or shopping? (15 years old or older) Answer Date of Assessment Author No 10/25/2017 2:00 PM Deonna Padilla HEALTH POLICY ANALYST documented as of this encounter Mental Status * Because of a physical, mental, or emotional condition, do you have serious difficulty concentrating, remembering, or making decisions? (5 years old or older) Answer Entry Date Author No 10/25/2017 2:00 PM Deonna Padilla HEALTH POLICY ANALYST documented in this encounter Patient Instructions * Patient Instructions* Leonard Jasso APNP - 09/17/2020 3:00 PM EMERGENCY DEPARTMENT Please keep your appt with Dr. Loyd, General Surgeon, on of this week. He will assess right axillary skin abscess. Take bactrim as ordered. Go to ER if your condition worsens significantly over the next day or so until you can see Dr. Loyd. GENCY DEPARTMENT documented in this encounter Progress Notes * Leonard Jasso APNP - 09/17/2020 3:00 PM CST Chief Complaint Patient presents with ??? Recurrent Skin Infections right axillae. [address] [address] Dept: [phone] Dept Loc: [phone] Loc Date: 09/17/2020 Name: Edilberto Hawley : [...] 09/17/2020 Signed: TIFFANI Galeano 09/21/2020 9:36 AM GENCY DEPARTMENT documented in this encounter Plan of Treatment [...] forearm documented in this encounter Care Teams Show Operations Supervisor Relationship Specialty Start Date End Date Leonard Jasso APRN [address] [facility] [address]49 [place] [address] PCP - General Family Medicine 08/15/19 04/30/21 Lacey Perdue MD [address] [phone] Referring Physician Infectious Diseases 06/28/18 documented as of this encounter
--- OUTSIDE RECORDS SUMMARY | 2024-11-23 10:16 | XMS_ITS | Encounter Summary ---
Author Organization [employer] Address [address] [place] [address] Care Team Providers Care Nurse Practitioner Manager Name Role Phone Lacey Perdue MD Unavailable [phone] Leonard Jasso APRN Primary Care Provide r Encounter Details Date Type Department Care Team (Late st Contact Info) Description 12/18/2020 9:30 AM EXPEDITER SERVICE ORDER Anesthesia Event [facility] [address] [place] [address] Brenden Perez CRNA Anesthesia Record Procedure Summary [...] of Assessment Author No 10/25/2017 2:00 PM EXPEDITER SERVICE ORDER Galvan, Am y S, THIRD RIGGER * Are you blind or do you have serious difficulty seeing, even when wearing glasses? Answer Date of Assessment Author No 10/25/2017 2:00 PM EXPEDITER SERVICE ORDER Galvan, Am y S, THIRD RIGGER * Do you have serious difficulty walking or climbing stairs? (5 years old or older) Answer Date of Assessment Author No 10/25/2017 2:00 PM EXPEDITER SERVICE ORDER Galvan, Am y S, THIRD RIGGER * Do you have difficulty dressing or bathing? (5 years old or older) Answer Date of Assessment Author No 10/25/2017 2:00 PM EXPEDITER SERVICE ORDER Galvan, Am y S, THIRD RIGGER * Because of a physical, mental, or emotional condition, do you have difficulty doing errands alone such as visiting a doctor's office or shopping? (15 years old or older) Answer Date of Assessment Author No 10/25/2017 2:00 PM EXPEDITER SERVICE ORDER Galvan, Am y S, THIRD RIGGER documented as of this encounter Mental Status * Because of a physical, mental, or emotional condition, do you have serious difficulty concentrating, remembering, or making decisions? (5 years old or older) Answer Entry Date Author No 10/25/2017 2:00 PM EXPEDITER SERVICE ORDER Galvan, Am y S, THIRD RIGGER documented in this encounter OR Notes * [...] Hydration status: euvolemic Discharge(d) when criteria met DITER SERVICE ORDER * Anesthesia Preprocedure Evaluation - Brenden Perez [...] parent/guardian) appears to have understood our discussion. DITER SERVICE ORDER documented in this encounter Plan of Treatment Not on file documented as of this encounter Goals Goal Patient Goal Type Associated Problems Recent Progress Patient-Stated? Author Blood Pressure < 140/90 Blood Pressure 134/86(2022 2:25 PM CDT) No Leonard Jasso APRN documented as of this encounter Visit Diagnoses Not on filedocumented in this encounter Care Teams Nurse Practitioner Manager Relationship Specialty Start Date End Date Leonard Jasso APRN [address] [facility] [address] [place] [address] PCP - General Family Medicine 08/15/19 04/30/21 Lacey Perdue MD [address] [phone] Referring Physician Infectious Diseases 06/28/18 documented as of this encounter
--- OUTSIDE RECORDS SUMMARY | 2024-11-23 10:16 | XMS_ITS | Encounter Summary ---
Author Organization [employer] Address [address] [place] [address] Care Team Providers Care Middle [employer] Principal Name Role Phone Lacey Perdue MD Unavailable [phone] Leonard Jasso APRN Primary Care Provide r [...] 2:00 PM JOHN Galvan Am y S, BUTTON CUTTER * Do you have difficulty dressing or bathing? (5 years old or older) Answer Date of Assessment Author No 10/25/2017 2:00 PM JOHN Galvan Am y S, BUTTON CUTTER * Because of a physical, mental, or emotional condition, do you have difficulty doing errands alone such as visiting a doctor's office or shopping? (15 years old or older) Answer Date of Assessment Author No 10/25/2017 2:00 PM JOHN Galvan Am y S, BUTTON CUTTER documented as of this encounter Mental Status * Because of a physical, mental, or emotional condition, do you have serious difficulty concentrating, remembering, or making decisions? (5 years old or older) Answer Entry Date Author No 10/25/2017 2:00 PM JOHN Galvan Am y S, BUTTON CUTTER documented in this encounter Plan of Treatment Not on file documented as of this encounter Goals Goal Patient Goal Type Associated Problems Recent Progress Patient-Stated? Author Blood Pressure < 140/90 Blood Pressure 134/86(2022 2:25 PM CDT) No Leonard Jasso APRN documented as of this encounter Visit Diagnoses Not on filedocumented in this encounter Care Teams Middle School Principal Relationship Specialty Start Date End Date Leonard Jasso APRN 1454 [facility] [address] [place] [address] PCP - General Family Medicine 08/15/19 04/30/21 Lacey Perdue MD [address] [phone] Referring Physician Infectious Diseases 06/28/18 documented as of this encounter
--- OUTSIDE RECORDS SUMMARY | 2024-11-23 10:16 | XMS_ITS | Encounter Summary ---
Author Organization [employer] Address [address] [place] [address] Care Team Providers Care Professor Of Physical Education Name Role Phone Lacey Perdue MD Unavailable [phone] Leonard Jasso RN QUALITY Primary Care Provide r Reason for Visit * Reason Comments Wrist Pain Left wrist pain. Hand Pain Right hand pain sin e 2016 * Referral (Routine) - Closed Specialty Diagnoses / Procedures Referred By Celine almaguer Referred To Contact Orthopedic Surgery Diagnoses Chronic wrist pain, left Leonard Jasso, RN QUALITY [address] [place] [address] Phone: tel: fax: Silver Mcdermott MD [address] [place] [address] [place] [address] Phone: tel: fax: Referral ID Status Reason Start Date Expiration Date V isits Requested Visits Authorized [id number] Closed Specialty Services Required 01/29/2021 01/29/2022 1 1 Encounter Details Date Type Department Care Team (Latest Contact Info) Description 02/25/2021 9:00 AM CDT Initial consult [facility] - Orthopedics [address] [place] [phone] Silver Mcdermott MD [address] [place] [id number] Posttraumatic arthritis of wrist, left (Primary [...] Mcdermott MD - 02/25/2021 9:00 AM CDT [facility] [address] [address] Date: 02/25/2021 Name: Edilberto Hawley : 1955 [...] wrist in the distant past performed in [place]. He has no numbness or tingling in [...] W/O US (02/25/2021 9:00 AM CDT) Narrative [facility] - 02/25/2021 9:00 AM CDT [...] MD PROCEDURE/MINOR SURGICAL ORDERA BLES Final Result [facility] [address] [place], [place] [phone] documented in this encounter Visit Diagnoses Diagnosis [...] wrist documented in this encounter Care Teams Professor Of Physical Education Relationship Specialty Start Date End Date Leonard Jasso APRN 14[address] [facility] [address] [place] [address] PCP - General Family Medicine 08/15/19 04/30/21 Lacey Perdue MD [address] [phone] Referring Physician Infectious Diseases 06/28/18 documented as of this encounter
--- OUTSIDE RECORDS SUMMARY | 2024-11-23 10:16 | XMS_ITS | Encounter Summary ---
Author Organization [employer] Address [address] [place] [address] Care Team Providers Care Wind Energy Project Manager Name Role Phone Lacey Perdue MD Unavailable [phone] Leonard Jasso APRN Primary Care Provide r [...] COVID-19? No / Unsure 12/05/2020 10:20 AM PROJECT COACH documented as of this encounter Functional Status [...] 2:00 PM JOHN Galvan Am y S, GREASE REFINER OPERATOR * Do you have difficulty dressing or bathing? (5 years old or older) Answer Date of Assessment Author No 10/25/2017 2:00 PM JOHN Galvan Am y S, GREASE REFINER OPERATOR * Because of a physical, mental, or emotional condition, do you have difficulty doing errands alone such as visiting a doctor's office or shopping? (15 years old or older) Answer Date of Assessment Author No 10/25/2017 2:00 PM JOHN Galvan Am y S, GREASE REFINER OPERATOR documented as of this encounter Mental Status * Because of a physical, mental, or emotional condition, do you have serious difficulty concentrating, remembering, or making decisions? (5 years old or older) Answer Entry Date Author No 10/25/2017 2:00 PM JOHN Galvan Am y S, GREASE REFINER OPERATOR documented in this encounter Plan of Treatment Not on file documented as of this encounter Goals Goal Patient Goal Type Associated Problems Recent Progress Patient-Stated? Author Blood Pressure < 140/90 Blood Pressure 134/86(2022 2:25 PM CDT) No Leonard Jasso APRN documented as of this encounter Visit Diagnoses Not on filedocumented in this encounter Care Teams Wind Energy Project Manager Relationship Specialty Start Date End Date Leonard Jasso APRN [address] [facility] [address] [place] [address] PCP - General Family Medicine 08/15/19 04/30/21 Lacey Perdue MD [address] [facility] [address] [phone] Referring Physician Infectious Diseases 06/28/18 documented as of this encounter
--- OUTSIDE RECORDS SUMMARY | 2024-11-23 10:16 | XMS_ITS | Encounter Summary ---
Author Organization [employer] Address [address] [place] [address] Care Team Providers Care Table Assembler Metal Name Role Phone Lacey Perdue MD Unavailable [phone] Leonard Jasso APRN Primary Care Provide r [...] COVID-19? No / Unsure 11/13/2020 9:31 AM POWER GRADER OPERATOR documented as of this encounter Functional [...] No 10/25/2017 2:00 PM Deonna Padilla, INFORMATION SYSTEMS SECURITY DEVELOPER * Do you have difficulty dressing or bathing? (5 years old or older) Answer Date of Assessment Author No 10/25/2017 2:00 PM Deonna Padilla, INFORMATION SYSTEMS SECURITY DEVELOPER * Because of a physical, mental, or emotional condition, do you have difficulty doing errands alone such as visiting a doctor's office or shopping? (15 years old or older) Answer Date of Assessment Author No 10/25/2017 2:00 PM Deonna Padilla, INFORMATION SYSTEMS SECURITY DEVELOPER documented as of this encounter Mental Status * Because of a physical, mental, or emotional condition, do you have serious difficulty concentrating, remembering, or making decisions? (5 years old or older) Answer Entry Date Author No 10/25/2017 2:00 PM Deonna Padilla, INFORMATION SYSTEMS SECURITY DEVELOPER documented in this encounter Plan of Treatment Not on file documented as of this encounter Goals Goal Patient Goal Type Associated Problems Recent Progress Patient-Stated? Author Blood Pressure < 140/90 Blood Pressure 134/86(2022 2:25 PM CDT) No Leonard Jasso APRN documented as of this encounter Visit Diagnoses Not on filedocumented in this encounter Care Teams Table Assembler Metal Relationship Specialty Start Date End Date Leonard Jasso APRN [address] [facility] [address] [place] [address] PCP - General Family Medicine 08/15/19 04/30/21 Lacey Perdue MD [address] [phone] Referring Physician Infectious Diseases 06/28/18 documented as of this encounter
--- OUTSIDE RECORDS SUMMARY | 2024-11-23 10:16 | XMS_ITS | Encounter Summary ---
Author Organization [employer] Address [address] [place] [address] Care Team Providers Care Asphalt Raker Name Role Phone Lacey Perdue MD Unavailable [phone] Leonard Jasso APRN Primary Care Provide r Reason for Visit * Reason Comments Abscess Right axilla Abdominal Pain Cholelithiasis Encounter Details Date Type Department Care Team (Late st Contact Info) Description 09/19/2020 11:30 AM SPEED BELT SANDER TENDER Office Visit [facility] [address] [facility] [address] [place] [address] [place] [address] [place] [address] [address] [place] [address] Abscess of right axilla (Primary [...] COVID-19? No / Unsure 09/19/2020 11:12 AM SPEED BELT SANDER TENDER documented as of this encounter Last Filed Vital Signs Vital Sign Reading Time Taken Comments Blood Pressure 121/84 09/19/2020 11:23 AM SPEED BELT SANDER TENDER Pulse 94 09/19/2020 11:23 AM SPEED BELT SANDER TENDER Temperature 36.4 ??C (97.5 ??F) 09/19/2020 11:[address] Respiratory Rate 16 09/19/2020 11:23 AM SPEED BELT SANDER TENDER Oxygen Saturation 97% 09/19/2020 11:23 AM SPEED BELT SANDER TENDER Inhaled Oxygen Concentration - - Weight 88 kg (194 lb) 09/19/2020 11:23 AM SPEED BELT SANDER TENDER Height 180.3 cm (5' 11 ) 09/19/2020 11:23 AM SPEED BELT SANDER TENDER Body Mass Index 27.06 09/19/2020 11:23 AM SPEED BELT SANDER TENDER documented in this encounter Functional Status * Are you deaf or do you have serious difficulty hearing? Answer Date of Assessment Author No 10/25/2017 2:00 PM Deonna Padilla, AIRBRUSH ARTIST PHOTOGRAPHY * Are you blind or do you have serious difficulty seeing, even when wearing glasses? Answer Date of Assessment Author No 10/25/2017 2:00 PM Deonna Padilla, AIRBRUSH ARTIST PHOTOGRAPHY * Do you have serious difficulty walking or climbing stairs? (5 years old or older) Answer Date of Assessment Author No 10/25/2017 2:00 PM Deonna Padilla, AIRBRUSH ARTIST PHOTOGRAPHY * Do you have difficulty dressing or bathing? (5 years old or older) Answer Date of Assessment Author No 10/25/2017 2:00 PM Deonna Padilla, AIRBRUSH ARTIST PHOTOGRAPHY * Because of a physical, mental, or emotional condition, do you have difficulty doing errands alone such as visiting a doctor's office or shopping? (15 years old or older) Answer Date of Assessment Author No 10/25/2017 2:00 PM Deonna Padilla AIRBRUSH ARTIST PHOTOGRAPHY documented as of this encounter Mental Status * Because of a physical, mental, or emotional condition, do you have serious difficulty concentrating, remembering, or making decisions? (5 years old or older) Answer Entry Date Author No 10/25/2017 2:00 PM Deonna Padilla AIRBRUSH ARTIST PHOTOGRAPHY documented in this encounter Progress Notes * [...] ankle or foot, acute, right ([facility]) 2018 Stepped on nail ??? Shoulder injury ??? Substance abuse ([facility]) cocaine, crystal meth nothing since 1996 [...] file Gets together: Not on file Attends hindu service: Not on file Active member of [...] ??? A/G Ratio 09/09/2020 1.1* ??? EGFR Non-/Palestinian 09/09/2020 78 ? ? EGFR /Palestinian 09/09/2020 >90 ??? Hemoglobin A1C 09/09/2020 6.1* [...] of right axilla. Siddhartha Loyd MD, FACS D BELT SANDER TENDER documented in this encounter Procedure Notes * Siddhartha Loyd MD - 09/19/2020 11:30 AM CSTAssociated Order(s): *Incision and Drainage Post-Procedure Diagnose(s): Abscess of right axilla *Incision and Drainage Date/Time: 09/19/2020 11:49 AM Performed by: Siddhartha Loyd MD Authorized by: Siddhartha Loyd MD [place] Protocol: Verbal consent obtained?: Yes Written consent [...] primary if changes need to be made. D BELT SANDER TENDER documented in this encounter Plan of Treatment Not on file documented as of this encounter Goals Goal Patient Goal Type Associated Problems Recent Progress Patient-Stated? Author Blood Pressure < 140/90 Blood Pressure 134/86(2022 2:25 PM CDT) No Leonard Jasso, ANGIE documented as of this encounter Procedures Procedure Name Priority Date/Time Associated Diagnosis Comments SD INCISION & DRAINAGE ABSCESS COMPLICATED/MULTIPL E Routine 09/19/2020 11:30 AM SPEED BELT SANDER TENDER Abscess of right axilla documented in this encounter Results * (ABNORMAL) Wound culture with gram stain (09/19/2020 11:44 AM SPEED BELT SANDER TENDER) Specimen Description ABSCESS 09/19/2020 2:07 PM [facility] Special Requests RIGHT AXILLARY ABSCESS 09/19/2020 2:07 PM [facility] Gram Stain OCCASIONAL GRAM POSITIVE COCCI 09/19/2020 6:26 PM [facility] Gram Stain RARE EPITHELIAL CELLS 09/19/2020 6:26 PM [facility] Gram Stain RARE WBCs 09/19/2020 6:26 PM [facility] Culture Results OCCASIONAL METHICILLIN RESISTANT STAPHYLOCOCCUS AUREUS(P) 09/21/2020 9:10 AM [facility] Specimen from abscess (specimen) ABSCESS MORPHOLOGY / Unknown 09/19/2020 11:44 AM SPEED BELT SANDER TENDER 09/19/2020 2:14 PM SPEED BELT SANDER TENDER Narrative Organism Antibiotic Method Susceptibility Methicillin resistant [...] MICROBIOLOGY - GENERAL ORDERABL ES Final Result [facility] [address] [facility] [address] [place] [address] * SD INCISION & DRAINAGE ABSCESS COMPLICATED/MULTIPLE (09/19/2020 11:30 AM SPEED BELT SANDER TENDER) Siddhartha Sullivan MD - 09/19/2020 11:30 AM SPEED BELT SANDER TENDER Siddhartha Loyd MD ? 09/19/2020 11:52 AM *Incision and Drainage Date/Time: 09/19/2020 11:49 AM Performed by: Siddhartha Loyd MD Authorized by: Siddhartha Loyd MD [place] Protocol: ?Verbal consent obtained?: Yes ?? Written [...] forearm documented in this encounter Care Teams Asphalt Raker Relationship Specialty Start Date End Date Leonard Jasso, ROAD MIXER OPERATOR [facility] [address] [place] [address] PCP - General Family Medicine 08/15/19 04/30/21 Lacey Perdue MD [address] [phone] Referring Physician Infectious Diseases 06/28/18 documented as of this encounter
--- OUTSIDE RECORDS SUMMARY | 2024-11-23 10:16 | XMS_ITS | Encounter Summary ---
Author Organization [employer] Address [address] [place] [address] Care Team Providers Care Painter And Decorator Name Role Phone Lacey Perdue MD Unavailable [phone] Leonard Jasso APRN Primary Care Provide r Encounter Details Date Type Department Care Team (Latest Contact Info) Description 12/14/2020 8:15 AM ARCHEOLOGY FACULTY MEMBER - 12/14/2020 11:59 PM ARCHEOLOGY FACULTY MEMBER Hospital Encounter [facility] [address] [place] [address] Pre-op exam Discharge Disposition: Home [...] COVID-19? No / Unsure 12/11/2020 9:15 AM ARCHEOLOGY FACULTY MEMBER documented as of this encounter Functional Status * Are you deaf or do you have serious difficulty hearing? Answer Date of Assessment Author No 10/25/2017 2:00 PM ARCHEOLOGY FACULTY MEMBER Galvan, Am y S, STRAP MACHINE OPERATOR * Are you blind or [...] Pressure 134/86(2022 2:25 PM CDT) No Leonard aJsso, ANGIE documented as of this encounter Procedures Procedure Name Priority Date/Time Associated Diagnosis Comments CORONAVIRUS SARS-COV-2 MOLECULAR Timed 12/14/2020 8:15 AM ARCHEOLOGY FACULTY MEMBER Pre-op exam documented in this encounter Results * CoronaVirus SARS CoV-2 PCR (12/14/2020 8:15 AM ARCHEOLOGY FACULTY MEMBER) SARS-CoV-2 PCR NOT DETECTED NDET 12/15/2020 12:28 [...] of each patient. This assay utilizes the LoSo COVID-19 Combo Kit with RNA isolation performed on the [employer] Purification System and RT PCR performed on the Stunable Real time PCR system. ?? TESTING PERFORMED AT [address] [address] The test was developed and its performance characteristics determined by [facility]. It has not been cleared or approved by the FDA. Such approval is not required for clinical implementation and the test results have been shown to be clinically useful. This laboratory is CAP accredited and CLIA certified to perform high complexity testing. Performed at [address] [address], ([phone], unless otherwise noted. FIRST TEST UNKNOWN 12/14/2020 3:26 PM [facility] EMPLOYED IN HEALTHCARE NO 12/14/2020 3:26 PM [facility] SYMPTOMATIC DEFINED BY CDC NO 12/14/2020 3:26 PM [facility] HOSPITALIZED NO 12/14/2020 3:26 PM [facility] ICU NO 12/14/2020 3:26 PM [facility] RESIDENT IN CONGREGATE SETTING NO 12/14/2020 3:26 PM [facility] NOT 12/14/2020 3:26 PM [facility] Blood specimen (specimen) NASOPHARYNGEAL SWAB / Unknown 12/14/2020 8:15 AM ARCHEOLOGY FACULTY MEMBER 12/14/2020 3:33 PM [facility] us Siddhartha Loyd MD MICROBIOLOGY - GENERAL ORDERABL ES Final Result [facility] [address] [place], [place] [phone] [place] [address] [place] [address] [facility] [address] [place] [address] documented in this encounter Visit Diagnoses Diagnosis Pre-op exam Preoperative examination, unspecified documented in this encounter Care Teams Painter And Decorator Relationship Specialty Start Date End Date Leonard Jasso APRN [address] [facility] [address] [place] [address] PCP - General Family Medicine 08/15/19 04/30/21 Lacey Perdue MD [address] [address] Referring Physician Infectious Diseases 06/28/18 documented as of this encounter
--- OUTSIDE RECORDS SUMMARY | 2024-11-23 10:16 | XMS_ITS | Encounter Summary ---
Author Organization [employer] Address [address] [place] [address] Care Team Providers Care Basting Cleaner Name Role Phone Lacey Perdue MD Unavailable [phone] Leonard Jasso APRN Primary Care Provide r Reason for Visit * Auth/Cert Specialty Diagnoses / Procedures Referred By Contjessica t Referred To Contact [place] [address] [place] [address] [address] [place] [address] Phone: tel: fax: Referral ID Status Reason Start Date Expiration Date Visits Re quested Visits Authorized [id number] 12/05/2020 1 1 Encounter Details Date Type Department Care Team (Latest Contact Info) Description 12/18/2020 9:00 AM HEALTH PROMOTION SPECIALIST - 12/18/2020 9:30 AM [facility] Surgery [facility] [address] [place] [id number] Siddhartha Loyd MD [address] [place] [address] [address] [place] [address] ENDO - ESOPHAGOGASTRODUODENOSCOPY Surgery Details Date/Time Status Location OR Service Patient Class Case Class Case Type Trauma Case? 12/18/2020 9:[address] [facility] OR [facility] Outpatient Procedure/Ga talib Panel 1 Procedure [...] COVID-19? No / Unsure 12/18/2020 7:35 AM HEALTH PROMOTION SPECIALIST documented as of this encounter Last Filed Vital Signs Vital Sign Reading Time Taken Comments Blood Pressure 146/84 12/18/2020 8:05 AM HEALTH PROMOTION SPECIALIST Pulse 63 12/18/2020 8:05 AM HEALTH PROMOTION SPECIALIST Temperature 36.7 ??C (98.1 ??F) 12/18/2020 8:05 AM CS T Respiratory Rate 20 12/18/2020 8:05 AM HEALTH PROMOTION SPECIALIST Oxygen Saturation 97% 12/18/2020 8:05 AM HEALTH PROMOTION SPECIALIST Inhaled Oxygen Concentration - - Weight 92.1 kg (203 lb) 12/18/2020 8:05 AM HEALTH PROMOTION SPECIALIST Height 180.3 cm (5' 11 ) 12/18/2020 8:05 AM HEALTH PROMOTION SPECIALIST Body Mass Index 28.31 12/18/2020 8:05 AM HEALTH PROMOTION SPECIALIST documented in this encounter Functional Status [...] Physical Exam, Review of Systems or Plan. TH PROMOTION SPECIALIST documented in this encounter Nursing Notes * Elena Price RN - 12/18/2020 9:50 AM CST Report to Elvis Joshua RN TH PROMOTION SPECIALIST documented in this encounter OR Notes * OR Surgeon - Piper Joshua RN - 12/18/2020 10:09 AM CST Pt up in chair with assist x 2 he remains groggy TH PROMOTION SPECIALIST * Op Note - Siddhartha Loyd MD - 12/18/2020 9:[address] [facility] EGD PROCEDURE NOTE Patient Name : Edilberto Hawley Referring Physician:TIFFANI Galeano Date of Surgery: 12/18/2020 Surgeon: Siddhartha Loyd MD CUFFING MACHINE OPERATOR: CUFFING MACHINE OPERATOR: Brenden Perez CRNA Staff: In Room During [...] per the above collection information/dictation. Impression:As above TH PROMOTION SPECIALIST documented in this encounter Plan of [...] TISSUE BIOPSY Routine 0 12/18/2020 9:40 AM HEALTH PROMOTION SPECIALIST Endo - Esophagogastroduodenoscopy 12/18/2020 9:30 AM HEALTH PROMOTION SPECIALIST see operative report documented in this encounter Results * (ABNORMAL) H Pylori Screen, Tissue Biopsy (12/18/2020 9:40 AM HEALTH PROMOTION SPECIALIST) H. pylori Screen POS(A) NEG 12/19/2020 11:42 AM [facility] Comment: CALLED TO ELENA Nowak RN @ SURG 12/19/2020 1140 SS Tissue specimen (specimen) STOMACH STRUCTURE / Unknown 12/18/2020 9:40 AM HEALTH PROMOTION SPECIALIST 12/18/2020 10:37 AM HEALTH PROMOTION SPECIALIST Siddhartha Loyd MD BODY FLUIDS AND STOOLS ORDERABL ES Final Result [facility] [address] [place], [place] [phone] [facility] [address] [place] [address] * CoronaVirus SARS CoV-2 PCR (12/14/2020 8:15 AM HEALTH PROMOTION SPECIALIST) Pathologist [facility] SARS-CoV-2 PCR NOT DETECTED NDET 12/15/2020 12:28 PM [facility] Comment: ---- A Not Detected result indicates that SARS-CoV-2 RNA is not present in the patient's specimen. This result may be influenced by the stage of the viral infection and the quality of the specimen collected for testing. Test results should be correlated in the clinical context of each patient. This assay utilizes the [place] [employer] ClinicPath COVID-19 Combo Kit with RNA isolation performed on the Nexway Purification System and RT PCR performed on the [employer] 12[employer] Flex Real time PCR system. ?? TESTING PERFORMED AT [facility], [facility] [place] [id number] The test was developed and its performance characteristics determined by [facility] [place]. It has not been cleared or approved by the FDA. Such approval is not required for clinical implementation and the test results have been shown to be clinically useful. This laboratory is CAP accredited and CLIA certified to perform high complexity testing. Performed at [place] [id number], ([phone], unless otherwise noted. FIRST TEST UNKNOWN 12/14/2020 3:26 PM [facility] EMPLOYED IN HEALTHCARE NO 12/14/2020 3:26 PM [facility] SYMPTOMATIC DEFINED BY CDC NO 12/14/2020 3:26 PM [facility] HOSPITALIZED NO 12/14/2020 3:26 PM [facility] ICU NO 12/14/2020 3:26 PM [facility] RESIDENT IN CONGREGATE SETTING NO 12/14/2020 3:26 PM [facility] NOT 12/14/2020 3:26 PM [facility] Blood specimen (specimen) NASOPHARYNGEAL SWAB / Unknown 12/14/2020 8:15 AM HEALTH PROMOTION SPECIALIST 12/14/2020 3:33 PM HEALTH PROMOTION SPECIALIST us Siddhartha Loyd MD MICROBIOLOGY - GENERAL ORDERABL ES Final Result [facility] [address] [place], [place] [phone] [facility] CONFUCIANIST [facility] [address] [place] [address] [facility] [address] [place] [address] documented in this encounter Visit Diagnoses Not on filedocumented in this encounter Administered Medications Inactive Administered Medications - up to 3 most recent administrations Medication Order MAR Action Action Date Dose Rate Site lactated ringers infusion at 20 mL/hr, Intravenous, CONTINUOUS, Starting on Wed12/18/20 at 0900, For 60 days, Pre-opIndications:Gastroesophag eal reflux disease, esophagitis presence not specified,Dysphasia New Bag 12/18/2020 10:27 AM HEALTH PROMOTION SPECIALIST 20 mL/hr New Bag 12/18/2020 8:34 AM HEALTH PROMOTION SPECIALIST 20 mL/hr documented in this encounter Active and Recently Administered Medications Times are shown in HEALTH PROMOTION SPECIALIST. Continuous Medication Order 12/16/2020 12/17/2020 12/18/2020 lactated ringers infusion at 20 mL/hr, Intravenous, CONTINUOUS, Starting on Wed12/18/20 at 0900, For 60 days, Pre-op 0834 (New Bag - Prov ider: Iman Barrios LPN)1027 (New Bag - Provider: Piper Joshua, RN) documented in this encounter Care Teams Basting Cleaner Relationship Specialty Start Date End Date Leonard Jasso APRN [address] [facility] [address] [place] [address] PCP - General Family Medicine 08/15/19 04/30/21 Lacey Perdue MD [address] [address] Referring Physician Infectious Diseases 06/28/18 documented as of this encounter
--- OUTSIDE RECORDS SUMMARY | 2024-11-23 10:16 | XMS_ITS | Encounter Summary ---
Author Organization [employer] Address [address] [place] [address] Care Team Providers Care Flute Teacher Name Role Phone Lacey Perdue MD Unavailable [phone] Leonard Jasso APRN Primary Care Provide r Reason for Visit * Auth/Cert Specialty Diagnoses / Procedures Referred By Contjessica t Referred To Contact Diagnoses hearttburn Siddhartha Loyd MD [address] [facility] [address] [place] [address] Phone: tel: fax: Referral ID Status Reason Start Date Expiration Date Visits Re quested Visits Authorized [id number] 12/05/2020 1 1 Encounter Details Date Type Department Care Team (Latest Contact Info) Description 12/18/2020 7:35 AM INSTRUCTIONAL SUPPORT TECHNICIAN - 12/18/2020 10:[address] [facility] Hospital Encounter [facility] [address] [place] [address] [place] [address] [place] [address] [address] [place] [address] Pre-op exam (Primary Dx); Gastroesophageal [...] COVID-19? No / Unsure 12/18/2020 7:35 AM INSTRUCTIONAL SUPPORT TECHNICIAN documented as of this encounter Last Filed Vital Signs Vital Sign Reading Time Taken Comments Blood Pressure 131/82 12/18/2020 10:07 AM INSTRUCTIONAL SUPPORT TECHNICIAN Pulse 67 12/18/2020 10:07 AM INSTRUCTIONAL SUPPORT TECHNICIAN Temperature 36.8 ??C (98.2 ??F) 12/18/2020 10:[address] Respiratory Rate 16 12/18/2020 10:07 AM INSTRUCTIONAL SUPPORT TECHNICIAN Oxygen Saturation 95% 12/18/2020 10:07 AM INSTRUCTIONAL SUPPORT TECHNICIAN Inhaled Oxygen Concentration - - Weight 92.1 kg (203 lb) 12/18/2020 8:05 AM INSTRUCTIONAL SUPPORT TECHNICIAN Height 180.3 cm (5' 11 ) 12/18/2020 8:05 AM INSTRUCTIONAL SUPPORT TECHNICIAN Body Mass Index 28.31 12/18/2020 8:05 AM INSTRUCTIONAL SUPPORT TECHNICIAN documented in this encounter Functional Status [...] Physical Exam, Review of Systems or Plan. RUCTIONAL SUPPORT TECHNICIAN documented in this encounter Nursing Notes * Elena Price RN - 12/18/2020 9:50 AM CST Report to Elvis Joshua RN RUCTIONAL SUPPORT TECHNICIAN documented in this encounter OR Notes * OR Surgeon - Piper Joshua RN - 12/18/2020 10:09 AM CST Pt up in chair with assist x 2 he remains groggy RUCTIONAL SUPPORT TECHNICIAN * Op Note - Siddhartha Loyd MD - 12/18/2020 9:53 AM CST [facility] EGD PROCEDURE NOTE Patient Name : Edilberto Hawley Referring Physician:TIFFANI Galeano Date of Surgery: 12/18/2020 Surgeon: Siddhartha Loyd MD SECONDARY SPECIAL EDUCATION TEACHER: SECONDARY SPECIAL EDUCATION TEACHER: Brenden Perez CRNA Staff: In Room During [...] per the above collection information/dictation. Impression:As above RUCTIONAL SUPPORT TECHNICIAN documented in this encounter Plan of [...] TISSUE BIOPSY Routine 0 12/18/2020 9:40 AM INSTRUCTIONAL SUPPORT TECHNICIAN Endo - Esophagogastroduodenoscopy 12/18/2020 9:30 AM INSTRUCTIONAL SUPPORT TECHNICIAN see operative report documented in this encounter Results * (ABNORMAL) H Pylori Screen, Tissue Biopsy (12/18/2020 9:40 AM INSTRUCTIONAL SUPPORT TECHNICIAN) H. pylori Screen POS(A) NEG 12/19/2020 11:42 AM INSTRUCTIONAL SUPPORT TECHNICIAN [facility] Comment: CALLED TO ELENA Nowak RN @ SURG 12/19/2020 1140 SS Tissue specimen (specimen) STOMACH STRUCTURE / Unknown 12/18/2020 9:40 AM INSTRUCTIONAL SUPPORT TECHNICIAN 12/18/2020 10:37 AM INSTRUCTIONAL SUPPORT TECHNICIAN Siddhartha Loyd MD BODY FLUIDS AND STOOLS ORDERABL ES Final Result [facility] [address] [place], [place] [phone] [facility] [address] [place] [address] * CoronaVirus SARS CoV-2 PCR (12/14/2020 8:15 AM INSTRUCTIONAL SUPPORT TECHNICIAN) SARS-CoV-2 PCR NOT DETECTED NDET 12/15/2020 12:28 PM [facility] Comment: ---- A Not Detected result indicates that SARS-CoV-2 RNA is not present in the patient's specimen. This result may be influenced by the stage of the viral infection and the quality of the specimen collected for testing. Test results should be correlated in the clinical context of each patient. This assay utilizes the [employer] ResearchPath COVID-19 Combo Kit with RNA isolation performed on the One Month Purification System and RT PCR performed on the [employer] 12Redicam Real time PCR system. ?? [place] [address] The test was developed and its performance characteristics determined by [facility]. It has not been cleared or approved by the FDA. Such approval is not required for clinical implementation and the test results have been shown to be clinically useful. This laboratory is CAP accredited and CLIA certified to perform high complexity testing[place] [address], ([phone], unless otherwise noted. FIRST TEST UNKNOWN 12/14/2020 3:26 PM [facility] EMPLOYED IN HEALTHCARE NO 12/14/2020 3:26 PM [facility] SYMPTOMATIC DEFINED BY CDC NO 12/14/2020 3:26 PM [facility] HOSPITALIZED NO 12/14/2020 3:26 PM [facility] ICU NO 12/14/2020 3:26 PM [facility] RESIDENT IN CONGREGATE SETTING NO 12/14/2020 3:26 PM [facility] NOT 12/14/2020 3:26 PM [facility] Blood specimen (specimen) NASOPHARYNGEAL SWAB / Unknown 12/14/2020 8:15 AM INSTRUCTIONAL SUPPORT TECHNICIAN 12/14/2020 3:33 PM INSTRUCTIONAL SUPPORT TECHNICIAN Siddhartha Loyd MD MICROBIOLOGY - GENERAL ORDERABL ES Final Result [facility] [address] [place], [place] [phone] [facility] [address] [place] [address] [facility] [address] [place] [address] documented in this encounter Visit Diagnoses Diagnosis [...] not specified,Dysphasia New Bag 12/18/2020 10:27 AM INSTRUCTIONAL SUPPORT TECHNICIAN 20 mL/hr New Bag 12/18/2020 8:34 AM INSTRUCTIONAL SUPPORT TECHNICIAN 20 mL/hr documented in this encounter Active and Recently Administered Medications Times are shown in INSTRUCTIONAL SUPPORT TECHNICIAN. Continuous Medication Order 12/16/2020 12/17/2020 12/18/2020 lactated ringers infusion at 20 mL/hr, Intravenous, CONTINUOUS, Starting on Wed12/18/20 at 0900, For 60 days, Pre-op 0834 (New Bag - Prov ider: Iman Barrios LPN)1027 (New Bag - Provider: Piper Joshua RN) documented in this encounter Care Teams Flute Teacher Relationship Specialty Start Date End Date Leonard Jasso APRN [address] [facility] [address] [place] [address] PCP - General Family Medicine 08/15/19 04/30/21 Lacey Perdue MD [address] [phone] Referring Physician Infectious Diseases 06/28/18 documented as of this encounter
--- OUTSIDE RECORDS SUMMARY | 2024-11-23 10:16 | XMS_ITS | Encounter Summary ---
Author Organization [employer] Address [address] [place] [address] Care Team Providers Care Computer Systems Integrator Name Role Phone Lacey Perdue MD Unavailable [phone] Leonard Jasso APRN Primary Care Provide r Encounter Details Date Type Department Care Team (Latest Contact Info) Description 09/19/2020 11:44 AM MANAGER COPY - 09/19/2020 11:59 PM MANAGER COPY Hospital Encounter [facility] [address] [place] [address] Abscess of right axilla Discharge [...] COVID-19? No / Unsure 09/19/2020 11:12 AM MANAGER COPY documented as of this encounter Functional Status * Are you deaf or do you have serious difficulty hearing? Answer Date of Assessment Author No 10/25/2017 2:00 PM MANAGER COPY Deonna Galvan ARNP * Are you blind [...] WITH GRAM STAIN Routine 09/19/2020 11:44 AM MANAGER COPY Abscess of right axilla ANAEROBIC CULTURE Routine 09/19/2020 11: 44 AM MANAGER COPY documented in this encounter Results * Anaerobic culture (09/19/2020 11:44 AM MANAGER COPY) Specimen Description ABSCESS 09/19/2020 2:36 PM [facility] Special Requests RIGHT AXILLARY 09/19/2020 2:36 PM [facility] Culture Results NO GROWTH 7 DAYS 09/26/2020 11:02 AM [facility] Specimen from abscess (specimen) 09/19/2020 11:44 AM MANAGER COPY 09/19/2020 2:32 PM MANAGER COPY us Siddhartha Loyd MD MICROBIOLOGY - GENERAL ORDERABL ES Final Result [facility] [address] [facility] [address] [place] [address] * (ABNORMAL) Wound culture with gram stain (09/19/2020 11:44 AM MANAGER COPY) Specimen Description ABSCESS 09/19/2020 2:07 PM [facility] Special Requests RIGHT AXILLARY ABSCESS 09/19/2020 2:07 PM [facility] Gram Stain OCCASIONAL GRAM POSITIVE COCCI 09/19/2020 6:26 PM [facility] Gram Stain RARE EPITHELIAL CELLS 09/19/2020 6:26 PM [facility] Gram Stain RARE WBCs 09/19/2020 6:26 PM [facility] Culture Results OCCASIONAL METHICILLIN RESISTANT STAPHYLOCOCCUS AUREUS(P) 09/21/2020 9:10 AM [facility] Specimen from abscess (specimen) ABSCESS MORPHOLOGY / Unknown 09/19/2020 11:44 AM MANAGER COPY 09/19/2020 2:14 PM MANAGER COPY Narrative Organism Antibiotic Method Susceptibility Methicillin resistant [...] Final Result [email or web address] [address] [facility] [address] [place] [address] documented in this encounter Visit Diagnoses Diagnosis Abscess of right axilla Cellulitis and abscess of upper arm and forearm documented in this encounter Care Teams Computer Systems Integrator Relationship Specialty Start Date End Date Leonard Jasso APRN [address] [facility] [address] [place] [address] PCP - General Family Medicine 08/15/19 04/30/21 Lacey Perdue MD [address] [address] Referring Physician Infectious Diseases 06/28/18 documented as of this encounter
--- OUTSIDE RECORDS SUMMARY | 2024-11-23 10:16 | XMS_ITS | Encounter Summary ---
Author Organization [employer] Address [address] [place] [address] Care Team Providers Care Clinic Supervisor Name Role Phone Lacey Perdue MD Unavailable [phone] Leonard Jasso APRN Primary Care Provide r [...] COVID-19? No / Unsure 12/11/2020 9:15 AM PACKAGING SPECIALIST documented as of this encounter Functional [...] 2:00 PM JOHN Galvan Am y S, AUTO BODY CUSTOMIZER * Do you have difficulty dressing or bathing? (5 years old or older) Answer Date of Assessment Author No 10/25/2017 2:00 PM JOHN Galvan Am y S, AUTO BODY CUSTOMIZER * Because of a physical, mental, or emotional condition, do you have difficulty doing errands alone such as visiting a doctor's office or shopping? (15 years old or older) Answer Date of Assessment Author No 10/25/2017 2:00 PM JOHN Galvan Am y S, AUTO BODY CUSTOMIZER documented as of this encounter Mental Status * Because of a physical, mental, or emotional condition, do you have serious difficulty concentrating, remembering, or making decisions? (5 years old or older) Answer Entry Date Author No 10/25/2017 2:00 PM JOHN Galvan Am y S, AUTO BODY CUSTOMIZER documented in this encounter Plan of Treatment Not on file documented as of this encounter Goals Goal Patient Goal Type Associated Problems Recent Progress Patient-Stated? Author Blood Pressure < 140/90 Blood Pressure 134/86(2022 2:25 PM CDT) No Leonard Jasso APRN documented as of this encounter Visit Diagnoses Not on filedocumented in this encounter Care Teams Clinic Supervisor Relationship Specialty Start Date End Date Leonard Jasso APRN [address] [facility] [address] [place] [address] PCP - General Family Medicine 08/15/19 04/30/21 Lacey Perdue MD [address] [facility] [address] [phone] Referring Physician Infectious Diseases 06/28/18 documented as of this encounter
--- OUTSIDE RECORDS SUMMARY | 2024-11-23 10:16 | XMS_ITS | Encounter Summary ---
Author Organization [employer] Address [address] [place] [address] Care Team Providers Care Licensed Marine Engineer Name Role Phone Lacey Perdue MD Unavailable [phone] Leonard Jasso APRN Primary Care Provide r [...] COVID-19? No / Unsure 10/17/2020 7:50 AM PATHOLOGY TECH documented as of this encounter Functional Status * Are you deaf or do you have serious difficulty hearing? Answer Date of Assessment Author No 10/25/2017 2:00 PM Deonna Padilla ARNP * Are you blind or do you have serious difficulty seeing, even when wearing glasses? Answer Date of Assessment Author No 10/25/2017 2:00 PM PATHOLOGY TECH Deonna Galvan ARNP * Do you have serious difficulty walking or climbing stairs? (5 years old or older) Answer Date of Assessment Author No 10/25/2017 2:00 PM Deonna Padilla, PERSONAL CARER * Do you have difficulty dressing or bathing? (5 years old or older) Answer Date of Assessment Author No 10/25/2017 2:00 PM Deonna Padilla, PERSONAL CARER * Because of a physical, mental, or emotional condition, do you have difficulty doing errands alone such as visiting a doctor's office or shopping? (15 years old or older) Answer Date of Assessment Author No 10/25/2017 2:00 PM Deonna Padilla, PERSONAL CARER documented as of this encounter Mental Status * Because of a physical, mental, or emotional condition, do you have serious difficulty concentrating, remembering, or making decisions? (5 years old or older) Answer Entry Date Author No 10/25/2017 2:00 PM Deonna Padilla, PERSONAL CARER documented in this encounter Plan of Treatment Not on file documented as of this encounter Goals Goal Patient Goal Type Associated Problems Recent Progress Patient-Stated? Author Blood Pressure < 140/90 Blood Pressure 134/86(2022 2:25 PM CDT) No Leonard Jasso APRN documented as of this encounter Visit Diagnoses Not on filedocumented in this encounter Care Teams Licensed Marine Engineer Relationship Specialty Start Date End Date Leonard Jasso APRN 1454 [facility] [address] [place] [address] PCP - General Family Medicine 08/15/19 04/30/21 Lacey Perdue MD [address] [phone] Referring Physician Infectious Diseases 06/28/18 documented as of this encounter
--- OUTSIDE RECORDS SUMMARY | 2024-11-23 10:16 | XMS_ITS | Encounter Summary ---
Author Organization [employer] Address [address] [place] [address] Care Team Providers Care Ladle Watcher Name Role Phone Lacey Perdue MD Unavailable [phone] David Concepcion APRN Primary Care Provide r Reason for Referral * Referral (Routine) - Closed Specialty Diagnoses / Procedures Referred By Celine almaguer Referred To Contact General Surgery Diagnoses Gastroesophageal reflux disease without esophagitis Esophageal dysphagia David Concepcion, SOCIAL MEDIA INTERN [address] [place] [address] Phone: tel: fax: Referral ID Status Reason Start Date Expiration Date V isits Requested Visits Authorized [id number] Closed Specialty Services Required 11/13/2020 11/13/2021 1 1 RT SETTER Reason for Visit * Reason Comments Follow-up pt states his cellul itis of right axilla is healed Referral pt would like a refe rral to ENT Dr Ivana Johnston [place] - pt c/o chronic sinus issues & GERD Encounter Details Date Type Department Care Team (Late st Contact Info) Description 11/13/2020 9:30 AM RETORT SETTER Office Visit [facility] [address] [place] [address] David Concepcion, SOCIAL MEDIA INTERN [address] [place] [address] Gastroesophageal reflux disease without esophagitis [...] COVID-19? No / Unsure 11/13/2020 9:31 AM RETORT SETTER documented as of this encounter Last Filed Vital Signs Vital Sign Reading Time Taken Comments Blood Pressure 122/82 11/13/2020 9:33 AM RETORT SETTER Pulse 88 11/13/2020 9:33 AM RETORT SETTER Temperature 36 ??C (96.8 ??F) 11/13/2020 9:33 AM RETORT SETTER Respiratory Rate 18 11/13/2020 9:33 AM RETORT SETTER Oxygen Saturation 96% 11/13/2020 9:33 AM RETORT SETTER Inhaled Oxygen Concentration - - Weight 93.9 kg (207 lb) 11/13/2020 9:33 AM RETORT SETTER Height 180.3 cm (5' 11 ) 11/13/2020 9:33 AM RETORT SETTER Body Mass Index 28.87 11/13/2020 9:33 AM RETORT SETTER documented in this encounter Functional Status * [...] of Assessment Author No 10/25/2017 2:00 PM RETORT SETTER Nessa Galvan, RECTANGULAR TANK COOPER * Because of a physical, mental, or emotional condition, do you have difficulty doing errands alone such as visiting a doctor's office or shopping? (15 years old or older) Answer Date of Assessment Author No 10/25/2017 2:00 PM RETORT SETTER Deonna Galvan ARNP documented as of this encounter Mental Status * Because of a physical, mental, or emotional condition, do you have serious difficulty concentrating, remembering, or making decisions? (5 years old or older) Answer Entry Date Author No 10/25/2017 2:00 PM RETORT SETTER Deonna Galvan, RECTANGULAR TANK COOPER documented in this encounter Patient Instructions * Patient Instructions* David Concepcion APNP - 11/13/2020 9:30 AM RETORT SETTER We will call you with xray results [...] BRAT diet as discussed. Bananas, Rice, Applesauce, [place]. If the Patient does not feellike eating [...] if condition is not resolved with treatment. RT SETTER RT SETTER documented in this encounter Progress Notes * David Concepcion APNP - 11/13/2020 9:30 AM CST Chief Complaint Patient presents with ??? Follow-up pt states his cellulitis of right axilla is healed ??? Referral pt would like a referral to ENT Dr Ivana [place] - pt c/o chronic sinus issues & GERD [address] [address] Dept: [phone] Dept Loc: [phone] Loc Date: 11/13/2020 Name: Edilberto Durand : [...] oriented to person, place, and time. Comments: Human Geography Instructor equal and strong bilat upper extremities. DTR's [...] BRAT diet as discussed. Bananas, Rice, Applesauce, [place]. If the Patient does not feellike eating [...] 11/13/2020 Signed: TIFFANI Galeano 11/15/2020 5:20 PM RT SETTER documented in this encounter Plan of [...] Durbin M.D. Narrative 01/27/2021 5:[address] PM [address] [place] [address] DIAGNOSTIC IMAGING Name: KIZZY EDILBERTO DELONG ??Ordering Phys: DAVID CONCEPCION Date of : 1955 ?Gender: M ??Accession Number: [id number] EXAM DESCRIPTION: XR CERVICAL SPINE 3 VIEWS [...] Procedure Note Dayanna Durbin MD - 01/27/[address] [place] [address] DIAGNOSTIC IMAGING Name: EDILBERTO DURAND Ordering Phys: DAVID CONCEPCION Date of : 1955 Gender: M Accession Number: [id number] EXAM DESCRIPTION: XR CERVICAL SPINE 3 VIEWS [...] Cervicalgia documented in this encounter Care Teams Ladle Watcher Relationship Specialty Start Date End Date David Concepcion APRN 1454 [facility] [address] [place] [address] PCP - General Family Medicine 08/15/19 04/30/21 Lacey Perdue MD [address] [phone] Referring Physician Infectious Diseases 06/28/18 documented as of this encounter
--- OUTSIDE RECORDS SUMMARY | 2024-11-23 10:16 | XMS_ITS | Encounter Summary ---
Author Organization [facility] Address [address] [place] [address] Care Team Providers Care Teaching Artist Name Role Phone Lacey Perdue MD Unavailable [phone] Leonard Jasso APRN Primary Care Provide r Reason for Visit * Reason Onset Date Comments Medication Refill 12/09/2020 Medication Refill 12/12/2020 Encounter Details Date Type Department Care Team (Late st Contact Info) Description 12/09/[address] [address] [place], [place] 1454 [facility] [address] [place] [address] Social History Tobacco Use Types [...] COVID-19? No / Unsure 12/11/2020 9:15 AM POWER HAMMER OPERATOR documented as of this encounter Functional Status * Are you deaf or do you have serious difficulty hearing? Answer Date of Assessment Author No 10/25/2017 2:00 PM POWER HAMMER OPERATOR Galvan, Am y S, HEALTH CARE COACH * Are you blind or do you have serious difficulty seeing, even when wearing glasses? Answer Date of Assessment Author No 10/25/2017 2:00 PM POWER HAMMER OPERATOR Galvan, Am y S, HEALTH CARE COACH * Do you have serious difficulty walking or climbing stairs? (5 years old or older) Answer Date of Assessment Author No 10/25/2017 2:00 PM POWER HAMMER OPERATOR Galvan, Am y S, HEALTH CARE COACH * Do you have difficulty dressing or bathing? (5 years old or older) Answer Date of Assessment Author No 10/25/2017 2:00 PM POWER HAMMER OPERATOR Galvan, Am y S, HEALTH CARE COACH * Because of a physical, mental, or emotional condition, do you have difficulty doing errands alone such as visiting a doctor's office or shopping? (15 years old or older) Answer Date of Assessment Author No 10/25/2017 2:00 PM POWER HAMMER OPERATOR Galvan, Am y S, HEALTH CARE COACH documented as of this encounter Mental Status * Because of a physical, mental, or emotional condition, do you have serious difficulty concentrating, remembering, or making decisions? (5 years old or older) Answer Entry Date Author No 10/25/2017 2:00 PM POWER HAMMER OPERATOR Galvan, Am y S, HEALTH CARE COACH documented in this encounter Plan of Treatment Not on file documented as of this encounter Goals Goal Patient Goal Type Associated Problems Recent Progress Patient-Stated? Author Blood Pressure < 140/90 Blood Pressure 134/86(2022 2:25 PM CDT) No Leonard Jasso APRN documented as of this encounter Visit Diagnoses Not on filedocumented in this encounter Care Teams Teaching Artist Relationship Specialty Start Date End Date Leonard Jasso APRN 1454 [facility] [address] [place] [address] PCP - General Family Medicine 08/15/19 04/30/21 Lacey Perdue MD [address] [phone] Referring Physician Infectious Diseases 06/28/18 documented as of this encounter
--- OUTSIDE RECORDS SUMMARY | 2024-11-23 10:16 | XMS_ITS | Encounter Summary ---
Author Organization [employer] Address [address] [place] [address] Care Team Providers Care Supervisor Shrimp Pond Name Role Phone Lacey Perdue MD Unavailable [phone] Leonard Jasso APRN Primary Care Provide r Reason for Visit * Reason Comments Follow-up Patient is here for a follow up. Encounter Details Date Type Department Care Team (Late st Contact Info) Description 12/11/2020 9:15 AM BANK CASHIER Office Visit [address] [phone] Leonard Jasso APRN [address] [place] [phone] Acute non-recurrent maxillary sinusitis (Primary Dx) Social [...] COVID-19? No / Unsure 12/11/2020 9:15 AM BANK CASHIER documented as of this encounter Last Filed Vital Signs Vital Sign Reading Time Taken Comments Blood Pressure 120/80 12/11/2020 9:28 AM BANK CASHIER Pulse 76 12/11/2020 9:28 AM BANK CASHIER Temperature 36.3 ??C (97.4 ??F) 12/11/2020 9:28 AM CS T Respiratory Rate - - Oxygen Saturation 97% 12/11/2020 9:28 AM BANK CASHIER Inhaled Oxygen Concentration - - Weight 92.1 kg (203 lb) 12/11/2020 9:28 AM BANK CASHIER Height - - Body Mass Index 28.31 12/05/2020 10:30 AM BANK CASHIER documented in this encounter Functional Status * [...] Leonard Jasso APNP - 12/11/2020 9:15 AM BANK CASHIER Images from the original note were not [...] for yourself at home? ?? Take an pnvq-img-olvkzam pain medicine, such as acetaminophen (Tylenol), ibuprofen (Advil, Motrin), or naproxen (Aleve). Read and follow all instructions on the label. ?? If the doctor prescribed antibiotics, take them as directed. Do not stop taking them just because you feel better. You need to take the full course of antibiotics. ?? Be careful when taking kwyo-hdz-glmpbsy cold or flu medicines and Tylenol at [...] option found under the Resources tab in [employer] [email or web address]. If you do not have access to [employer], you can visit [email or web address] and select [employer] from the menu on the left. Enter I933 in the search box to learn more about Sinusitis: Care Instructions. Not on [employer]? Go to [email or web address] and click the Sign Up Now link to request an activation code. Current as of: February 28, 2020?Content Version: 12.7 ?? [employer]. Care instructions adapted under license by your healthcare professional. This care instruction is for use with your licensed healthcare professional. If you have questions about a medical condition or this instruction, always ask your healthcare professional. [employer] disclaims any warranty or liability for your use of this information. CASHIER documented in this encounter Progress Notes * Leonard Jasso APNP - 12/11/2020 9:15 AM CST Chief Complaint Patient presents with ??? Follow-up Patient is here for a follow up. [facility] [address] [facility] [address] Dept: [phone] Dept Loc: [phone] Loc Date: 12/11/2020 Name: Edilberto Hawley : [...] 12/11/2020 Signed: TIFFANI Galeano 12/15/2020 5:56 PM CASHIER documented in this encounter Plan of Treatment Not on file documented as of this encounter Goals Goal Patient Goal Type Associated Problems Recent Progress Patient-Stated? Author Blood Pressure < 140/90 Blood Pressure 134/86(2022 2:25 PM CDT) No Leonard Jasso APRN documented as of this encounter Visit Diagnoses Diagnosis Acute non-recurrent maxillary sinusitis- Primary documented in this encounter Care Teams Supervisor Shrimp Pond Relationship Specialty Start Date End Date Leonard Jasso APRN 1454 [facility] [address] [place] [address] PCP - General Family Medicine 08/15/19 04/30/21 Lacey Perdue MD [address] [phone] Referring Physician Infectious Diseases 06/28/18 documented as of this encounter
--- OUTSIDE RECORDS SUMMARY | 2024-11-23 10:17 | XMS_ITS | Encounter Summary ---
Author Organization [employer] Address [address] [place] [address] Care Team Providers Care Assistant Producer Name Role Phone Lacey Perdue MD Unavailable [phone] Leonard Jasso APRN Primary Care Provide r Reason for Visit * Reason Comments Medication Refill Encounter Details Date Type Department Care Team (Late st Contact Info) Description 06/17/[address] [address] Leonard Jasso, ANGIE [address] [place] [address] Social History Tobacco Use Types Packs/Day [...] of Assessment Author No 10/25/2017 2:00 PM CLIENT ACCOUNT ASSISTANT Galvan, Am y S, CONSULTING SERVICES MANAGER * Are you blind or do you have serious difficulty seeing, even when wearing glasses? Answer Date of Assessment Author No 10/25/2017 2:00 PM CLIENT ACCOUNT ASSISTANT Galvan, Am y S, CONSULTING SERVICES MANAGER * Do you have serious difficulty walking or climbing stairs? (5 years old or older) Answer Date of Assessment Author No 10/25/2017 2:00 PM CLIENT ACCOUNT ASSISTANT Galvan, Am y S, CONSULTING SERVICES MANAGER * Do you have difficulty dressing or bathing? (5 years old or older) Answer Date of Assessment Author No 10/25/2017 2:00 PM CLIENT ACCOUNT ASSISTANT Galvan, Am y S, CONSULTING SERVICES MANAGER * Because of a physical, mental, or emotional condition, do you have difficulty doing errands alone such as visiting a doctor's office or shopping? (15 years old or older) Answer Date of Assessment Author No 10/25/2017 2:00 PM CLIENT ACCOUNT ASSISTANT Galvan, Am y S, CONSULTING SERVICES MANAGER documented as of this encounter Mental Status * Because of a physical, mental, or emotional condition, do you have serious difficulty concentrating, remembering, or making decisions? (5 years old or older) Answer Entry Date Author No 10/25/2017 2:00 PM CLIENT ACCOUNT ASSISTANT Galvan, Am y S, CONSULTING SERVICES MANAGER documented in this encounter Plan of Treatment Not on file documented as of this encounter Goals Goal Patient Goal Type Associated Problems Recent Progress Patient-Stated? Author Blood Pressure < 140/90 Blood Pressure 134/86(2022 2:25 PM CDT) No Leonard Jasso APRN documented as of this encounter Visit Diagnoses Not on filedocumented in this encounter Care Teams Assistant Producer Relationship Specialty Start Date End Date Leonard Jasso APRN 1454 [facility] [address] [place] [address] PCP - General Family Medicine 08/15/19 04/30/21 Lacey Perdue MD [address] [phone] Referring Physician Infectious Diseases 06/28/18 documented as of this encounter
--- OUTSIDE RECORDS SUMMARY | 2024-11-23 10:17 | XMS_ITS | Encounter Summary ---
Author Organization [employer] Address [address] [place] [address] Care Team Providers Care Engineering Production Worker Name Role Phone Lacey Perdue MD Unavailable [phone] Leonard Jasso APRN Primary Care Provide r [...] 10/25/2017 2:00 PM Deonna Padilla S, INSIDE SALES PROFESSIONAL * Do you have difficulty dressing or bathing? (5 years old or older) Answer Date of Assessment Author No 10/25/2017 2:00 PM Deonna Padilla S, INSIDE SALES PROFESSIONAL * Because of a physical, mental, or emotional condition, do you have difficulty doing errands alone such as visiting a doctor's office or shopping? (15 years old or older) Answer Date of Assessment Author No 10/25/2017 2:00 PM Deonna Padilla S, INSIDE SALES PROFESSIONAL documented as of this encounter Mental Status * Because of a physical, mental, or emotional condition, do you have serious difficulty concentrating, remembering, or making decisions? (5 years old or older) Answer Entry Date Author No 10/25/2017 2:00 PM Deonna Padilla, INSIDE SALES PROFESSIONAL documented in this encounter Plan of Treatment Not on file documented as of this encounter Goals Goal Patient Goal Type Associated Problems Recent Progress Patient-Stated? Author Blood Pressure < 140/90 Blood Pressure 134/86(2022 2:25 PM CDT) No Leonard Jasso APRN documented as of this encounter Visit Diagnoses Not on filedocumented in this encounter Care Teams Engineering Production Worker Relationship Specialty Start Date End Date Leonard Jasso APRN 1454 [facility] [address] [place] [address] PCP - General Family Medicine 08/15/19 04/30/21 Lacey Perdue MD [address] [phone] Referring Physician Infectious Diseases 06/28/18 documented as of this encounter
--- OUTSIDE RECORDS SUMMARY | 2024-11-23 10:17 | XMS_ITS | Encounter Summary ---
Author Organization [employer] Address [address] [place] [address] Care Team Providers Care Dump Truck Driver Name Role Phone Lacey Perdue MD Unavailable [phone] Leonard Jasso APRN Primary Care Provide r [...] No 10/25/2017 2:00 PM Deonna Padilla S, HYDROCHLORIC MANUFACTURING SUPERVISOR * Do you have difficulty dressing or bathing? (5 years old or older) Answer Date of Assessment Author No 10/25/2017 2:00 PM Deonna Padilla S, HYDROCHLORIC MANUFACTURING SUPERVISOR * Because of a physical, mental, or emotional condition, do you have difficulty doing errands alone such as visiting a doctor's office or shopping? (15 years old or older) Answer Date of Assessment Author No 10/25/2017 2:00 PM Deonna Padilla S, HYDROCHLORIC MANUFACTURING SUPERVISOR documented as of this encounter Mental Status * Because of a physical, mental, or emotional condition, do you have serious difficulty concentrating, remembering, or making decisions? (5 years old or older) Answer Entry Date Author No 10/25/2017 2:00 PM Deonna Padilla, HYDROCHLORIC MANUFACTURING SUPERVISOR documented in this encounter Plan of Treatment Not on file documented as of this encounter Goals Goal Patient Goal Type Associated Problems Recent Progress Patient-Stated? Author Blood Pressure < 140/90 Blood Pressure 134/86(2022 2:25 PM CDT) No Leonard Jasso APRN documented as of this encounter Visit Diagnoses Not on filedocumented in this encounter Care Teams Dump Truck Driver Relationship Specialty Start Date End Date Leonard Jasso APRN 1454 [facility] [address] [place] [address] PCP - General Family Medicine 08/15/19 04/30/21 Lacey Perdue MD [address] [phone] Referring Physician Infectious Diseases 06/28/18 documented as of this encounter
--- OUTSIDE RECORDS SUMMARY | 2024-11-23 10:17 | XMS_ITS | Encounter Summary ---
Author Organization [employer] Address [address] [place] [address] Care Team Providers Care Chair Mender Name Role Phone Lacey Perdue MD Unavailable [phone] Leonard Jasso APRN Primary Care Provide r Reason for Visit * Reason Comments Results Patient is here to d janey lab results. Encounter Details Date Type Department Care Team (Late st Contact Info) Description 06/04/2020 3:30 PM CDT Office Visit [address] [phone] Leonard Jasso APRN [facility]0 [place] [address] Borderline diabetes (Primary Dx); Patellar [...] Author No 10/25/2017 2:00 PM Deonna Padilla, SPIKE MACHINE FEEDER * Are you blind or do you have serious difficulty seeing, even when wearing glasses? Answer Date of Assessment Author No 10/25/2017 2:00 PM Nessa Padilla, SPIKE MACHINE FEEDER * Do you have serious difficulty walking or climbing stairs? (5 years old or older) Answer Date of Assessment Author No 10/25/2017 2:00 PM Deonna Padilla, SPIKE MACHINE FEEDER * Do you have difficulty dressing or bathing? (5 years old or older) Answer Date of Assessment Author No 10/25/2017 2:00 PM Deonna Padilla, SPIKE MACHINE FEEDER * Because of a physical, mental, or emotional condition, do you have difficulty doing errands alone such as visiting a doctor's office or shopping? (15 years old or older) Answer Date of Assessment Author No 10/25/2017 2:00 PM Deonna Padilla SPIKE MACHINE FEEDER documented as of this encounter Mental Status * Because of a physical, mental, or emotional condition, do you have serious difficulty concentrating, remembering, or making decisions? (5 years old or older) Answer Entry Date Author No 10/25/2017 2:00 PM Deonna Padilla, SPIKE MACHINE FEEDER documented in this encounter Patient Instructions * Patient Instructions* Leonard Jasso APNP - 06/04/2020 3:30 PM CDT Follow [...] Patient is here to discuss lab results. [address] [address] Dept: [phone] Dept Loc: [phone] Loc Date: 06/04/2020 Name: Edilberto Hawley : [...] knee documented in this encounter Care Teams Chair Mender Relationship Specialty Start Date End Date Leonard Jasso APRN 1454 [facility] [address] [place] [address] PCP - General Family Medicine 08/15/19 04/30/21 Lacey Perdue MD [address] [phone] Referring Physician Infectious Diseases 06/28/18 documented as of this encounter
--- OUTSIDE RECORDS SUMMARY | 2024-11-23 10:17 | XMS_ITS | Encounter Summary ---
Author Organization [employer] Address [address] [place] [address] Care Team Providers Care Mail Processing Clerk Name Role Phone Lacey Perdue MD Unavailable [phone] Leonard Jasso APRN Primary Care Provide r Reason for Visit * Reason Comments Cholelithiasis * Referral (Routine) - Closed Specialty Diagnoses / Procedures Referred By Contjessica t Referred To Contact General Surgery Diagnoses Calculus of gallbladder without cholecystitis without obstruction Leonard Jasso, HOUSE MOVER [address] [place] [address] Phone: tel: fax: Siddhartha Loyd MD [address] [place] [address] [address] [place] [address] Phone: tel: fax: Referral ID Status Reason Start Date Expiration Date V isits Requested Visits Authorized [id number] Closed Specialty Services Required 05/16/2020 05/16/2021 1 1 Encounter Details Date Type Department Care Team (Latest Contact Info) Description 05/23/2020 3:00 PM CDT Initial consult [facility] [address] [place] [address] 20[address] [place] [address] Siddhartha Loyd MD [address] [place] [address] [address] [place] [address] Right upper quadrant abdominal pain [...] Author No 10/25/2017 2:00 PM Deonna Padilla, POLE FRAMER MACHINE * Do you have difficulty dressing or [...] living will and a durable power of county attorney for health care. Bring a copy [...] not apply lotions, perfumes, deodorants, or nail malagasy. ? Take off all jewelry and piercings. [...] option found under the Resources tab in [employer] [email or web address]. If you do not have access to [employer], you can visit [email or web address] and select WhenU.com from the menu on the left. Enter P790 in the search box to learn more about Upper GI Endoscopy: Before Your Procedure. Not on [employer]? Go to [email or web address] and click the Sign Up Now link to request an activation code. Current as of: June 25, 2019Content Version: 12.4 ?? 8518-0646 [employer]. Care instructions adapted under license by your healthcare professional. This care instruction is for use with your licensed healthcare professional. If you have questions about a medical condition or this instruction, always ask your healthcare professional. [employer] disclaims any warranty or liability for your [...] ankle or foot, acute, right ([facility]) 2018 Stepped on nail ??? Shoulder injury ??? Substance abuse ([facility]) cocaine, crystal meth nothing since [...] file Gets together: Not on file Attends gnosticism service: Not on file Active member of [...] ??? A/G Ratio 05/10/2020 1.1* ??? EGFR Non-/Liberian 05/10/2020 61 ??? EGFR /Liberian 05/10/2020 70 ??? Hemoglobin A1C 05/10/2020 6.2* [...] disturbance documented in this encounter Care Teams Mail Processing Clerk Relationship Specialty Start Date End Date Leonard Jasso APRN [address] [facility] [address] [place] [address] PCP - General Family Medicine 08/15/19 04/30/21 Lacey Perdue MD [address] [address] Referring Physician Infectious Diseases 06/28/18 documented as of this encounter
--- OUTSIDE RECORDS SUMMARY | 2024-11-23 10:17 | XMS_ITS | Encounter Summary ---
Author Organization [employer] Address [address] [place] [address] Care Team Providers Care Executive Asst Name Role Phone Lacey Perdue MD Unavailable [phone] Leonard Jasso APRN Primary Care Provide r Reason for Visit * Reason Onset Date Comments Medication Refill 05/15/2020 Encounter Details Date Type Department Care Team (Late st Contact Info) Description 05/15/2020 Refill [facility] [address] [place], [place] [phone] Maxine Howell, [facility] 14[address] [facility] [address] [place], [place] [id number] Social History Tobacco Use Types Packs/Day Years [...] of Assessment Author No 10/25/2017 2:00 PM EVENT MARKETING SPECIALIST Deonna Galvan y S, DIAMOND DIE MAKER * Are you blind or do you have serious difficulty seeing, even when wearing glasses? Answer Date of Assessment Author No 10/25/2017 2:00 PM EVENT MARKETING SPECIALIST Deonna Galvan y S, DIAMOND DIE MAKER * Do you have serious difficulty walking or climbing stairs? (5 years old or older) Answer Date of Assessment Author No 10/25/2017 2:00 PM EVENT MARKETING SPECIALIST Deonna Galvan y S, DIAMOND DIE MAKER * Do you have difficulty dressing or bathing? (5 years old or older) Answer Date of Assessment Author No 10/25/2017 2:00 PM EVENT MARKETING SPECIALIST Cole Am y S, DIAMOND DIE MAKER * Because of a physical, mental, or emotional condition, do you have difficulty doing errands alone such as visiting a doctor's office or shopping? (15 years old or older) Answer Date of Assessment Author No 10/25/2017 2:00 PM EVENT MARKETING SPECIALIST Cole Am y S, DIAMOND DIE MAKER documented as of this encounter Mental Status * Because of a physical, mental, or emotional condition, do you have serious difficulty concentrating, remembering, or making decisions? (5 years old or older) Answer Entry Date Author No 10/25/2017 2:00 PM JOHN Galvan Am y S, DIAMOND DIE MAKER documented in this encounter Plan of Treatment Not on file documented as of this encounter Goals Goal Patient Goal Type Associated Problems Recent Progress Patient-Stated? Author Blood Pressure < 140/90 Blood Pressure 134/86(2022 2:25 PM CDT) No Leonard Jasso APRN documented as of this encounter Visit Diagnoses Not on filedocumented in this encounter Care Teams Executive Asst Relationship Specialty Start Date End Date Leonard Jasso APRN 1454 [facility] [address] [place] [address] PCP - General Family Medicine 08/15/19 04/30/21 Lacey Perdue MD [address] [phone] Referring Physician Infectious Diseases 06/28/18 documented as of this encounter
--- OUTSIDE RECORDS SUMMARY | 2024-11-23 10:17 | XMS_ITS | Encounter Summary ---
Author Organization [employer] Address [address] [place] [address] Care Team Providers Care Stock Preparer Name Role Phone Lacey Perdue MD Unavailable [phone] Leonard Jasso APRN Primary Care Provide r Reason for Visit * Reason Comments Medication Refill Encounter Details Date Type Department Care Team (Late st Contact Info) Description 08/16/[address] [address] Leonard Jasso, ANGIE [address] [place] [address] Social History Tobacco Use Types Packs/Day [...] Author No 10/25/2017 2:00 PM Deonna Padilla, TRAM DRIVER * Are you blind or do you have serious difficulty seeing, even when wearing glasses? Answer Date of Assessment Author No 10/25/2017 2:00 PM Deonna Padilla, TRAM DRIVER * Do you have serious difficulty walking or climbing stairs? (5 years old or older) Answer Date of Assessment Author No 10/25/2017 2:00 PM Deonna Padilla, TRAM DRIVER * Do you have difficulty dressing or bathing? (5 years old or older) Answer Date of Assessment Author No 10/25/2017 2:00 PM Deonna Padilla, TRAM DRIVER * Because of a physical, mental, or emotional condition, do you have difficulty doing errands alone such as visiting a doctor's office or shopping? (15 years old or older) Answer Date of Assessment Author No 10/25/2017 2:00 PM Deonna Padilla, TRAM DRIVER documented as of this encounter Mental Status [...] on filedocumented in this encounter Care Teams Stock Preparer Relationship Specialty Start Date End Date Leonard Jasso APRN 1454 [facility] [address]49 [place] [address] PCP - General Family Medicine 08/15/19 04/30/21 Lacey Perdue MD [address] [phone] Referring Physician Infectious Diseases 06/28/18 documented as of this encounter
--- OUTSIDE RECORDS SUMMARY | 2024-11-23 10:17 | XMS_ITS | Encounter Summary ---
Author Organization [employer] Address [address] [place] [address] Care Team Providers Care Nurse Behavioral Health Care Name Role Phone Lacey Perdue MD Unavailable [phone] Leonard Jasso APRN Primary Care Provide r Reason for Referral * Referral (Routine) - Closed Specialty Diagnoses / Procedures Referred By Celine almaguer Referred To Contact General Surgery Diagnoses Calculus of gallbladder without cholecystitis without obstruction Leonard Jasso, SLIP COVER CUTTER [address] [place] [address] Phone: tel: fax: Siddhartha Loyd MD [address] [place] [address] Phone: tel: fax: Referral ID Status Reason Start Date Expiration Date V isits Requested Visits Authorized [id number] Closed Specialty Services Required 05/16/2020 05/16/2021 1 1 Reason for Visit * Reason Comments Results Ultrasound, A1c Encounter Details Date Type Department Care Team (Late st Contact Info) Description 05/16/2020 9:00 AM CDT Telemedicine [facility] [address] [place] [address] Leonard Jasso, SLIP COVER CUTTER [address] [place] [address] Calculus of gallbladder without cholecystitis without obstruction [...] Care Instructions Your Care Instructions Biliary (say BMIE-yw-hvg-ee ) colic is belly pain caused by [...] your doctor if you can take an xaqd-hai-hqoxjlr medicine. Read and follow all instructions on [...] option found under the Resources tab in [employer] [email or web address]. If you do not have access to [employer], you can visit [email or web address]://[email or web address] 4 Communications/patient-care and select PadMatcher from the menu on the left. Enter X038 in the search box to learn more about Biliary Colic: Care Instructions. Not on [employer]? Go to [email or web address] Mobile and click the Sign Up Now link to request an activation code. Current as of: June 25, 2019Content Version: 12.4 ?? [id number] [employer]. Care instructions adapted under license by your healthcare professional. This care instruction is for use with your licensed healthcare professional. If you have questions about a medical condition or this instruction, always ask your healthcare professional. [employer] disclaims any warranty or liability for your use of this information. documented in this encounter Progress Notes * Leonard Jasso APNP - 05/16/2020 9:00 AM CDT Chief Complaint Patient presents with ??? Results Ultrasound, A1c [facility] [address] [facility] [address] Dept: [phone] Dept Loc: [phone] Loc Date: 05/16/2020 Name: Edilberto Hawley : [...] glucose documented in this encounter Care Teams Nurse Behavioral Health Care Relationship Specialty Start Date End Date Leonard Jasso, SLIP COVER CUTTER 14[address] [facility] [address] [place] [address] PCP - General Family Medicine 08/15/19 04/30/21 Lacey Perdue MD [address] [phone] Referring Physician Infectious Diseases 06/28/18 documented as of this encounter
--- OUTSIDE RECORDS SUMMARY | 2024-11-23 10:17 | XMS_ITS | Encounter Summary ---
Author Organization [employer] Address [address] [place] [address] Care Team Providers Care Software Quality Test Engineer Name Role Phone Lacey Perdue MD Unavailable [phone] Leonard Jasso APRN Primary Care Provide r Reason for Visit * Reason Onset Date Comments No Show for COVID testing prior to procedure. Encounter Details Date Type Department Care Team (Late st Contact Info) Description 06/11/2020 Telephone [facility] [address] [facility], [address] [place] [address] Prerna Vicente, RN [address] [place] [address] No Show for COVID testing [...] Author No 10/25/2017 2:00 PM Deonna Padilla, FINANCIAL SALES REPRESENTATIVE * Are you blind or do you have serious difficulty seeing, even when wearing glasses? Answer Date of Assessment Author No 10/25/2017 2:00 PM JOHN Galvan Am y S, FINANCIAL SALES REPRESENTATIVE * Do you have serious difficulty walking or climbing stairs? (5 years old or older) Answer Date of Assessment Author No 10/25/2017 2:00 PM JOHN Galvan Am y S, FINANCIAL SALES REPRESENTATIVE * Do you have difficulty dressing or bathing? (5 years old or older) Answer Date of Assessment Author No 10/25/2017 2:00 PM Deonna Padilla S, FINANCIAL SALES REPRESENTATIVE * Because of a physical, mental, or emotional condition, do you have difficulty doing errands alone such as visiting a doctor's office or shopping? (15 years old or older) Answer Date of Assessment Author No 10/25/2017 2:00 PM Deonna Padilla, FINANCIAL SALES REPRESENTATIVE documented as of this encounter Mental Status * Because of a physical, mental, or emotional condition, do you have serious difficulty concentrating, remembering, or making decisions? (5 years old or older) Answer Entry Date Author No 10/25/2017 2:00 PM Deonna Padilla, FINANCIAL SALES REPRESENTATIVE documented in this encounter Miscellaneous Notes [...] on filedocumented in this encounter Care Teams Software Quality Test Engineer Relationship Specialty Start Date End Date Leonard Jasso APRN 14[address] [facility] [address] [place] [address] PCP - General Family Medicine 08/15/19 04/30/21 Lacey Perdue MD [address] [phone] Referring Physician Infectious Diseases 06/28/18 documented as of this encounter
--- OUTSIDE RECORDS SUMMARY | 2024-11-23 10:17 | XMS_ITS | Encounter Summary ---
Author Organization [employer] Address [address] [place] [address] Care Team Providers Care Biofuels Plant Manager Name Role Phone Lacey Perdue MD Unavailable [phone] Leonard Jasso APRN Primary Care Provide r Reason for Visit * Reason Onset Date Comments Medication Refill 06/17/2020 Encounter Details Date Type Department Care Team (Late st Contact Info) Description 06/17/2020 Refill [facility] [address] [place], [place] [phone] Maxine Howell, [facility] 1454 [facility] [address] [place], [place] [address] Social History Tobacco Use Types Packs/Day Years [...] of Assessment Author No 10/25/2017 2:00 PM VAN HELPER Deonna Galvan y S, SUPERVISOR MACHINE SETTER * Are you blind or do you have serious difficulty seeing, even when wearing glasses? Answer Date of Assessment Author No 10/25/2017 2:00 PM VAN HELPER Deonna Galvan y S, SUPERVISOR MACHINE SETTER * Do you have serious difficulty walking or climbing stairs? (5 years old or older) Answer Date of Assessment Author No 10/25/2017 2:00 PM VAN HELPER Deonna Galvan y S, SUPERVISOR MACHINE SETTER * Do you have difficulty dressing or bathing? (5 years old or older) Answer Date of Assessment Author No 10/25/2017 2:00 PM VAN HELPER Cole Am y S, SUPERVISOR MACHINE SETTER * Because of a physical, mental, or emotional condition, do you have difficulty doing errands alone such as visiting a doctor's office or shopping? (15 years old or older) Answer Date of Assessment Author No 10/25/2017 2:00 PM VAN HELPER Cole Am y S, SUPERVISOR MACHINE SETTER documented as of this encounter Mental Status * Because of a physical, mental, or emotional condition, do you have serious difficulty concentrating, remembering, or making decisions? (5 years old or older) Answer Entry Date Author No 10/25/2017 2:00 PM JOHN Galvan Am y S, SUPERVISOR MACHINE SETTER documented in this encounter Plan of Treatment Not on file documented as of this encounter Goals Goal Patient Goal Type Associated Problems Recent Progress Patient-Stated? Author Blood Pressure < 140/90 Blood Pressure 134/86(2022 2:25 PM CDT) No Leonard Jasso APRN documented as of this encounter Visit Diagnoses Not on filedocumented in this encounter Care Teams Biofuels Plant Manager Relationship Specialty Start Date End Date Leonard Jasso APRN 1454 [facility] [address] [place] [address] PCP - General Family Medicine 08/15/19 04/30/21 Lacey Perdue MD [address] [phone] Referring Physician Infectious Diseases 06/28/18 documented as of this encounter
--- OUTSIDE RECORDS SUMMARY | 2024-11-23 10:17 | XMS_ITS | Encounter Summary ---
Author Organization [employer] Address [address] [place] [address] Care Team Providers Care Incident Response Lead Name Role Phone Lacey Perdue MD Unavailable [phone] Leonard Jasso APRN Primary Care Provide r Reason for Visit * Reason Onset Date Comments Medication Refill 07/17/2020 Encounter Details Date Type Department Care Team (Late st Contact Info) Description 07/17/2020 Refill [facility] [address] [place], [place] [phone] Maxine Howell, [facility] 1454 [facility] [address] [place], [place] [address] Social History Tobacco Use Types Packs/Day Years [...] Author No 10/25/2017 2:00 PM Deonna Padilla, BUSINESS SUPPORT ADMINISTRATOR * Do you have serious difficulty walking or climbing stairs? (5 years old or older) Answer Date of Assessment Author No 10/25/2017 2:00 PM Deonna Padilla, BUSINESS SUPPORT ADMINISTRATOR * Do you have difficulty dressing or bathing? (5 years old or older) Answer Date of Assessment Author No 10/25/2017 2:00 PM Deonna Padilla, BUSINESS SUPPORT ADMINISTRATOR * Because of a physical, mental, or emotional condition, do you have difficulty doing errands alone such as visiting a doctor's office or shopping? (15 years old or older) Answer Date of Assessment Author No 10/25/2017 2:00 PM Deonna Padilla, BUSINESS SUPPORT ADMINISTRATOR documented as of this encounter Mental Status * Because of a physical, mental, or emotional condition, do you have serious difficulty concentrating, remembering, or making decisions? (5 years old or older) Answer Entry Date Author No 10/25/2017 2:00 PM Deonna Padilla, BUSINESS SUPPORT ADMINISTRATOR documented in this encounter Plan of Treatment Not on file documented as of this encounter Goals Goal Patient Goal Type Associated Problems Recent Progress Patient-Stated? Author Blood Pressure < 140/90 Blood Pressure 134/86(2022 2:25 PM CDT) No Leonard Jasso APRN documented as of this encounter Visit Diagnoses Not on filedocumented in this encounter Care Teams Incident Response Lead Relationship Specialty Start Date End Date Leonard Jasso APRN 1454 [facility] [address] [place] [address] PCP - General Family Medicine 08/15/19 04/30/21 Lacey Perdue MD [address] [address] Referring Physician Infectious Diseases 06/28/18 documented as of this encounter
--- OUTSIDE RECORDS SUMMARY | 2024-11-23 10:17 | XMS_ITS | Encounter Summary ---
Author Organization [employer] Address [address] [place] [address] Care Team Providers Care Rectifying Operator Name Role Phone Lacey Perdue MD Unavailable [phone] Leonard Jasso APRN Primary Care Provide r [...] Assessment Author No 10/25/2017 2:00 PM Deonna aPdilla ARNP * Are you blind or do you have serious difficulty seeing, even when wearing glasses? Answer Date of Assessment Author No 10/25/2017 2:00 PM Deonna Padilla ARNP * Do you have serious difficulty walking or climbing stairs? (5 years old or older) Answer Date of Assessment Author No 10/25/2017 2:00 PM Deonna Padilla S, SENIOR ACCOUNTING ANALYST * Do you have difficulty dressing or bathing? (5 years old or older) Answer Date of Assessment Author No 10/25/2017 2:00 PM Deonna Padilla S, SENIOR ACCOUNTING ANALYST * Because of a physical, mental, or emotional condition, do you have difficulty doing errands alone such as visiting a doctor's office or shopping? (15 years old or older) Answer Date of Assessment Author No 10/25/2017 2:00 PM Deonna Padilla S, SENIOR ACCOUNTING ANALYST documented as of this encounter Mental Status * Because of a physical, mental, or emotional condition, do you have serious difficulty concentrating, remembering, or making decisions? (5 years old or older) Answer Entry Date Author No 10/25/2017 2:00 PM Deonna Padilla, SENIOR ACCOUNTING ANALYST documented in this encounter Plan of Treatment Not on file documented as of this encounter Goals Goal Patient Goal Type Associated Problems Recent Progress Patient-Stated? Author Blood Pressure < 140/90 Blood Pressure 134/86(2022 2:25 PM CDT) No Leonard Jasso APRN documented as of this encounter Visit Diagnoses Not on filedocumented in this encounter Care Teams Rectifying Operator Relationship Specialty Start Date End Date Leonard Jasso APRN 1454 [facility] [address] [place] [address] PCP - General Family Medicine 08/15/19 04/30/21 Lacey Perdue MD [address] [phone] Referring Physician Infectious Diseases 06/28/18 documented as of this encounter
--- OUTSIDE RECORDS SUMMARY | 2024-11-23 10:17 | XMS_ITS | Encounter Summary ---
Author Organization [employer] Address [address] [place] [address] Care Team Providers Care Metallurgical Analyst Name Role Phone Lacey Perdue MD Unavailable [phone] Leonard Jasso APRN Primary Care Provide r Reason for Visit * Reason Comments Medication Refill Encounter Details Date Type Department Care Team (Late st Contact Info) Description 09/13/[address] [address] Leonard Jasso, ANGIE [address] [place] [address] Social History Tobacco Use Types Packs/Day [...] Assessment Author No 10/25/2017 2:00 PM DIGITAL PRODUCT MANAGER Galvan, Am y S, ADMIRALTY LAWYER * Are you blind or do you have serious difficulty seeing, even when wearing glasses? Answer Date of Assessment Author No 10/25/2017 2:00 PM DIGITAL PRODUCT MANAGER Galvan, Am y S, ADMIRALTY LAWYER * Do you have serious difficulty walking or climbing stairs? (5 years old or older) Answer Date of Assessment Author No 10/25/2017 2:00 PM DIGITAL PRODUCT MANAGER Galvan, Am y S, ADMIRALTY LAWYER * Do you have difficulty dressing or bathing? (5 years old or older) Answer Date of Assessment Author No 10/25/2017 2:00 PM DIGITAL PRODUCT MANAGER Galvan, Am y S, ADMIRALTY LAWYER * Because of a physical, mental, or emotional condition, do you have difficulty doing errands alone such as visiting a doctor's office or shopping? (15 years old or older) Answer Date of Assessment Author No 10/25/2017 2:00 PM DIGITAL PRODUCT MANAGER Galvan, Am y S, ADMIRALTY LAWYER documented as of this encounter Mental Status * Because of a physical, mental, or emotional condition, do you have serious difficulty concentrating, remembering, or making decisions? (5 years old or older) Answer Entry Date Author No 10/25/2017 2:00 PM DIGITAL PRODUCT MANAGER Galvan, Am y S, ADMIRALTY LAWYER documented in this encounter Plan of Treatment Not on file documented as of this encounter Goals Goal Patient Goal Type Associated Problems Recent Progress Patient-Stated? Author Blood Pressure < 140/90 Blood Pressure 134/86(2022 2:25 PM CDT) No Leonard Jasso APRN documented as of this encounter Visit Diagnoses Not on filedocumented in this encounter Care Teams Metallurgical Analyst Relationship Specialty Start Date End Date Leonard Jasso APRN 1454 [facility] [address] [place] [address] PCP - General Family Medicine 08/15/19 04/30/21 Lacey Perdue MD [address] [phone] Referring Physician Infectious Diseases 06/28/18 documented as of this encounter
--- OUTSIDE RECORDS SUMMARY | 2024-11-23 10:17 | XMS_ITS | Encounter Summary ---
Author Organization [facility] Address [address] [place] [address] Care Team Providers Care Engineer Second Assistant Name Role Phone Lacey Perdue MD Unavailable [phone] David Concepcion APRN Primary Care Provide r Reason for Referral * Diagnostic Radiology (Routine) - Closed Specialty Diagnoses / Procedures Referred By Celine almaguer Referred To Contact Radiology Diagnoses Elevated liver enzymes Procedures US Abdomen Ltd David Concepcion APRN [address] [place] [address] Phone: tel: fax: Referral ID Status Reason Start Date Expiration Date Visits Re quested Visits Authorized [id number] Closed 05/13/2020 05/13/2021 1 1 Reason for Visit * Reason Onset Date Comments Results 05/13/2020 Encounter Details Date Type Department Care Team (Late st Contact Info) Description 05/13/[address] [id number] Zoey Seaman LPN [address] [place] [address] [address] [place] [address] Results Social History Tobacco Use [...] Assessment Author No 10/25/2017 2:00 PM DIRECTOR QUALITY ASSURANCE Deonna Galvan y S, PATTERN MOLDER * Are you blind or do you have serious difficulty seeing, even when wearing glasses? Answer Date of Assessment Author No 10/25/2017 2:00 PM DIRECTOR QUALITY ASSURANCE Deonna Galvan y S, PATTERN MOLDER * Do you have serious difficulty walking or climbing stairs? (5 years old or older) Answer Date of Assessment Author No 10/25/2017 2:00 PM DIRECTOR QUALITY ASSURANCE Deonna Galvan S, PATTERN MOLDER * Do you have difficulty dressing or bathing? (5 years old or older) Answer Date of Assessment Author No 10/25/2017 2:00 PM DIRECTOR QUALITY ASSURANCE Deonna Galvan y S, PATTERN MOLDER * Because of a physical, mental, or emotional condition, do you have difficulty doing errands alone such as visiting a doctor's office or shopping? (15 years old or older) Answer Date of Assessment Author No 10/25/2017 2:00 PM DIRECTOR QUALITY ASSURANCE Deonna Galvan S, PATTERN MOLDER documented as of this encounter Mental Status * Because of a physical, mental, or emotional condition, do you have serious difficulty concentrating, remembering, or making decisions? (5 years old or older) Answer Entry Date Author No 10/25/2017 2:00 PM Deonna Padilla S, PATTERN MOLDER documented in this encounter Miscellaneous Notes * [...] PM T: ??05/15/2020 2:32 PM Report ID: [id number] Reading Location: [facility] Narrative 05/15/2020 2:32 PM CDT [address] [place] [address] Patient Name:EDILBERTO DURAND ?Accession Number: [id number] Patient ID Number:[id number] ?Approval Date: 05/15/2020 2:32 PM Date of [...] Procedure Note Saul Argueta MD - 05/15/[address] [place] [address] Patient Name:EDILBERTO DURAND Accession Number: [id number] Patient ID Number:[id number] Approval Date: 05/15/2020 2:32 PM Date of [...] Saul Argueta M.D. AK: DANAY Report ID: [id number] Reading Location: [facility] us David Concepcion APRN IMG US ORDERABLES Fin al Result * (ABNORMAL) Hemoglobin A1c (05/10/2020 4:43 PM CDT) Hemoglobin A1C 6.2(H) 3.8 - 5.6 % 05/13/2020 9:32 AM CDT [facility] Whole blood specimen (specimen) 05/10/2020 4:43 PM CDT 05/13/2020 8:50 AM CDT us David Concepcion APRN LAB BLOOD ORDERABLES Final Result [facility] [address] [facility] [address] [place] [address] documented in this encounter Visit Diagnoses Diagnosis Elevated fasting glucose- Primary Impaired fasting glucose Elevated liver enzymes Nonspecific elevation of levels of transaminase or lactic acid dehydrogenase (LDH) Elevated liver enzymes Nonspecific elevation of levels of transaminase or lactic acid dehydrogenase (LDH) documented in this encounter Care Teams Engineer Second Assistant Relationship Specialty Start Date End Date David Concepcion APRN [address] [facility] 0 [place] [address] PCP - General Family Medicine 08/15/19 04/30/21 Lacey Perdue MD [address] [phone] Referring Physician Infectious Diseases 06/28/18 documented as of this encounter
--- OUTSIDE RECORDS SUMMARY | 2024-11-23 10:17 | XMS_ITS | Encounter Summary ---
Author Organization [employer] Address [address] [place] [address] Care Team Providers Care Organizational Development Director Name Role Phone Lacey Perdue MD Unavailable [phone] Leonard Jasso APRN Primary Care Provide r [...] No 10/25/2017 2:00 PM Deonna Padilla S, TAX COMPLIANCE MANAGER * Do you have difficulty dressing or bathing? (5 years old or older) Answer Date of Assessment Author No 10/25/2017 2:00 PM Deonna Padilla S, TAX COMPLIANCE MANAGER * Because of a physical, mental, or emotional condition, do you have difficulty doing errands alone such as visiting a doctor's office or shopping? (15 years old or older) Answer Date of Assessment Author No 10/25/2017 2:00 PM Deonna Padilla S, TAX COMPLIANCE MANAGER documented as of this encounter Mental Status * Because of a physical, mental, or emotional condition, do you have serious difficulty concentrating, remembering, or making decisions? (5 years old or older) Answer Entry Date Author No 10/25/2017 2:00 PM Deonna Padilla, TAX COMPLIANCE MANAGER documented in this encounter Plan of Treatment Not on file documented as of this encounter Goals Goal Patient Goal Type Associated Problems Recent Progress Patient-Stated? Author Blood Pressure < 140/90 Blood Pressure 134/86(2022 2:25 PM CDT) No Leonard Jasso APRN documented as of this encounter Visit Diagnoses Not on filedocumented in this encounter Care Teams Organizational Development Director Relationship Specialty Start Date End Date Leonard Jasso APRN [address] [facility] [address] [place] [address] PCP - General Family Medicine 08/15/19 04/30/21 Lacye Perdue MD [address] [phone] Referring Physician Infectious Diseases 06/28/18 documented as of this encounter
--- OUTSIDE RECORDS SUMMARY | 2024-11-23 10:17 | XMS_ITS | Encounter Summary ---
Author Organization [facility] Address [address] [place] [address] Care Team Providers Care Shellfish Dredge Operator Name Role Phone Lacey Perdue MD Unavailable [phone] Leonard Jasso APRN Primary Care Provide r Reason for Visit * Reason Onset Date Comments Telephone Call 09/16/2020 Encounter Details Date Type Department Care Team (Late st Contact Info) Description 09/16/[address] [place] [address] [place] [address] Telephone Call Social History Tobacco [...] of Assessment Author No 10/25/2017 2:00 PM PIPE FITTER APPRENTICE Galvan, Am y S, MATERIAL CONTROL CLERK * Are you blind or do you have serious difficulty seeing, even when wearing glasses? Answer Date of Assessment Author No 10/25/2017 2:00 PM PIPE FITTER APPRENTICE Galvan, Am y S, MATERIAL CONTROL CLERK * Do you have serious difficulty walking or climbing stairs? (5 years old or older) Answer Date of Assessment Author No 10/25/2017 2:00 PM PIPE FITTER APPRENTICE Galvan, Am y S, MATERIAL CONTROL CLERK * Do you have difficulty dressing or bathing? (5 years old or older) Answer Date of Assessment Author No 10/25/2017 2:00 PM PIPE FITTER APPRENTICE Galvan, Am y S, MATERIAL CONTROL CLERK * Because of a physical, mental, or emotional condition, do you have difficulty doing errands alone such as visiting a doctor's office or shopping? (15 years old or older) Answer Date of Assessment Author No 10/25/2017 2:00 PM PIPE FITTER APPRENTICE Galvan, Nessa my S, MATERIAL CONTROL CLERK documented as of this encounter Mental Status * Because of a physical, mental, or emotional condition, do you have serious difficulty concentrating, remembering, or making decisions? (5 years old or older) Answer Entry Date Author No 10/25/2017 2:00 PM PIPE FITTER APPRENTICE Galvan, Am y S, MATERIAL CONTROL CLERK documented in this encounter Miscellaneous Notes * Telephone Encounter - Magda Knight, [facility] - 09/16/2020 11:26 AM PIPE FITTER APPRENTICE Pt called stating that at his visit on 09/13/2020 Amanda has drawn a [place] inside his armpit and to call with updates if the swelling got outside of the [place]. He states that it did but not [...] foot surgery. PVU with no further questions. FITTER APPRENTICE documented in this encounter Plan of Treatment Not on file documented as of this encounter Goals Goal Patient Goal Type Associated Problems Recent Progress Patient-Stated? Author Blood Pressure < 140/90 Blood Pressure 134/86(2022 2:25 PM CDT) No Leonard Jasso APRN documented as of this encounter Visit Diagnoses Not on filedocumented in this encounter Care Teams Shellfish Dredge Operator Relationship Specialty Start Date End Date Leonard Jasso APRN [address] [facility] [address] [place] [address] PCP - General Family Medicine 08/15/19 04/30/21 Lacey Perdue MD [address] [phone] Referring Physician Infectious Diseases 06/28/18 documented as of this encounter
--- OUTSIDE RECORDS SUMMARY | 2024-11-23 10:17 | XMS_ITS | Encounter Summary ---
Author Organization [facility] Address [address] [place] [address] Care Team Providers Care Tortilla Maker Name Role Phone Lacey Perdue MD Unavailable Leonard Jasso APRN Primary Care Provide r Encounter Details Date Type Department Care Team (Latest Contact Info) Description 09/09/2020 10:50 AM CDT - 09/09/2020 11:59 PM CDT Hospital Encounter [facility] [address] [place] [phone] Calculus of gallbladder without cholecystitis without obstruction; [...] of Assessment Author No 10/25/2017 2:00 PM HUMAN RESOURCES BENEFITS SPECIALIST Deonna Galvan ARNP * Are you blind [...] 134/86(2022 2:25 PM CDT) No Leonard Jasso, BACK TENDER CLOTH PRINTING documented as of this encounter Procedures Procedure Name Priority Date/Time Associated Diagnosis Comments HEMOGLOBIN A1C Routine 09/09/2020 10:50 AM CDT Borderline diabetes COMPREHENSIVE METABOLIC PANEL Routine 09/09/2020 10:50 AM CDT Calculus of gallbladder without cholecystitis without obstruction Borderline diabetes documented in this encounter Results * (ABNORMAL) Hemoglobin A1c (09/09/2020 10:50 AM CDT) Hemoglobin A1C 6.1(H) 3.8 - 5.6 % 09/09/2020 5:58 PM CDT [facility] Whole blood specimen (specimen) 09/09/2020 10:50 AM CDT 09/09/2020 5:38 PM CDT Leonard Jasso BACK TENDER CLOTH PRINTING LAB BLOOD ORDERABLES Final Result [facility] [address] [facility] [address] [place] [address] * (ABNORMAL) Comprehensive metabolic panel (09/09/2020 10:50 AM T) Sodium 137 136 - 145 mmol/L 09/09/2020 6:38 PM [facility] Potassium 4.6 3.5 - 5.1 mmol/L 09/09/2020 6:38 PM [facility] Chloride 103 98 - 107 mmol/L 09/09/2020 6:38 PM [facility] CO2 26 21 - 32 mmol/L 09/09/2020 6:38 [address] [facility] Glucose 119(H) 74 - 106 mg/dL 09/09/2020 6:[address] [facility] BUN 16 7.0 - 18.0 mg/dL 09/09/2020 6:38 PM [facility] Creatinine 1.00 0.70 - 1.30 mg/dL 09/09/2020 6:[address] [facility] Calcium 9.1 8.5 - 10.1 mg/dL 09/09/2020 6:[address] [facility] Total Protein 7.6 6.4 - 8.2 g/dL 09/09/2020 6:38 [address] [facility] Albumin 3.9 3.4 - 5.0 g/dL 09/09/2020 6:[address] [facility] Bilirubin Total 0.4 0.2 - 1.0 mg/dL 09/09/2020 6:[address] [facility] Alkaline Phosphatase 80 56 - 119 U/L 09/09/2020 6:38 [address] [facility] AST 54(H) 15 - 37 U/L 09/09/2020 6:38 PM [facility] ALT 90(H) 16 - 63 U/L 09/09/2020 6:38 [address] [facility] Anion Gap 8 8 - 16 mmol/L 09/09/2020 6:38 [address] [facility] BUN/Creatinine Ratio 16.0 09/09/2020 6:38 PM [facility] Osmolality Calculated 276(L) 285 - 295 mosm/kg 09/09/2020 6:38 PM [facility] Globulin 3.7(H) 2.3 - 3.4 g/dL 09/09/2020 6:38 PM [facility] A/G Ratio 1.1(L) 1.2 - 2.4 09/09/2020 6:38 PM [facility] Creatinine Based eGFR 78 mL/min/[1. 73_m2] 09/09/2020 6:38 PM [facility] Comment:GFR 60-90 Mild decre ased GFR. EGFR /Mozambican >90 mL/min/[1. 73_m2] 09/09/2020 6:38 PM [facility] Comment:GFR >90 Normal or el evated GFR. Serum specimen (specimen) 09/09/2020 10:50 AM CDT 09/09/2020 5:38 PM [facility] us Leonard Jasso APRN LAB BLOOD ORDERABLES Final Result [facility] [address] [facility] [address] [place] [address] documented in this encounter Visit Diagnoses Diagnosis Calculus of gallbladder without cholecystitis without obstruction Calculus of gallbladder without mention of cholecystitis or obstruction Borderline diabetes Other abnormal glucose documented in this encounter Care Teams Tortilla Maker Relationship Specialty Start Date End Date Leonard Jasso APRN [address] [facility] [address] [place] [address] PCP - General Family Medicine 08/15/19 04/30/21 Lacey Perdue MD [address] [phone] Referring Physician Infectious Diseases 06/28/18 documented as of this encounter
--- OUTSIDE RECORDS SUMMARY | 2024-11-23 10:17 | XMS_ITS | Encounter Summary ---
Author Organization [facility] Address [address] [place] [address] Care Team Providers Care Hog Cooler Name Role Phone Lacey Perdue MD Unavailable [phone] Leonard Jasso WEIGHT CHECKER Primary Care Provide r Reason for Visit * MRI/CAT Scan (Routine) - Closed Specialty Diagnoses / Procedures Referred By Contjessica almaguer Referred To Contact Radiology Diagnoses Right lower quadrant abdominal pain Procedures CT Abdomen and Pelvis wo Contrast CT Abdomen and Pelvis w Contrast Leonard Jasso, WEIGHT CHECKER [address] [place] [address] Phone: tel: Referral ID Status Reason Start Date Expiration Date Visits Re quested Visits Authorized [id number] Closed 05/10/2020 05/10/2021 1 1 Encounter Details Date Type Department Care Team (Latest Contact Info) Description 05/10/2020 4:00 PM CDT - 05/10/2020 4:19 PM CDT Hospital Encounter [facility] [address] [place] [address] Right lower quadrant abdominal pain [...] Author No 10/25/2017 2:00 PM Deonna Padilla, KNOWLEDGE MANAGEMENT ADVISOR * Do you have serious difficulty walking or climbing stairs? (5 years old or older) Answer Date of Assessment Author No 10/25/2017 2:00 PM Deonna Padilla, KNOWLEDGE MANAGEMENT ADVISOR * Do you have difficulty dressing or bathing? (5 years old or older) Answer Date of Assessment Author No 10/25/2017 2:00 PM Deonna Padilla KNOWLEDGE MANAGEMENT ADVISOR * Because of a physical, mental, or emotional condition, do you have difficulty doing errands alone such as visiting a doctor's office or shopping? (15 years old or older) Answer Date of Assessment Author No 10/25/2017 2:00 PM Deonna Padilla, KNOWLEDGE MANAGEMENT ADVISOR documented as of this encounter Mental Status * Because of a physical, mental, or emotional condition, do you have serious difficulty concentrating, remembering, or making decisions? (5 years old or older) Answer Entry Date Author No 10/25/2017 2:00 PM Deonna Padilla KNOWLEDGE MANAGEMENT ADVISOR documented in this encounter Medications at Time [...] quadrant documented in this encounter Care Teams Hog Cooler Relationship Specialty Start Date End Date Leonard Jasso APRN [address] [facility] [address] [place] [address] PCP - General Family Medicine 08/15/19 04/30/21 Lacey Perdue MD [address] [phone] Referring Physician Infectious Diseases 06/28/18 documented as of this encounter
--- OUTSIDE RECORDS SUMMARY | 2024-11-23 10:17 | XMS_ITS | Encounter Summary ---
Author Organization [employer] Address [address] [place] [address] Care Team Providers Care Housing Quality Standard Inspector Name Role Phone Lacey Perdue MD Unavailable [phone] Leonard Jasso APRN Primary Care Provide r Reason for Visit * Reason Comments Medication Refill Encounter Details Date Type Department Care Team (Late st Contact Info) Description 09/09/[address] [address] Leonard Jasso, ANGIE [address] [place] [address] Social History Tobacco Use Types Packs/Day [...] COVID-19? No / Unsure 09/24/2020 2:49 PM CHEESE WEIGHER documented as of this encounter Functional Status * Are you deaf or do you have serious difficulty hearing? Answer Date of Assessment Author No 10/25/2017 2:00 PM CHEESE WEIGHER Galvan, Am y S, BOILER CONTROL TECHNICIAN * Are you blind or do you have serious difficulty seeing, even when wearing glasses? Answer Date of Assessment Author No 10/25/2017 2:00 PM CHEESE WEIGHER Galvan, Am y S, BOILER CONTROL TECHNICIAN * Do you have serious difficulty walking or climbing stairs? (5 years old or older) Answer Date of Assessment Author No 10/25/2017 2:00 PM CHEESE WEIGHER Galvan, Am y S, BOILER CONTROL TECHNICIAN * Do you have difficulty dressing or bathing? (5 years old or older) Answer Date of Assessment Author No 10/25/2017 2:00 PM CHEESE WEIGHER Galvan, Am y S, BOILER CONTROL TECHNICIAN * Because of a physical, mental, or emotional condition, do you have difficulty doing errands alone such as visiting a doctor's office or shopping? (15 years old or older) Answer Date of Assessment Author No 10/25/2017 2:00 PM CHEESE WEIGHER Galvan, Nessa my S, BOILER CONTROL TECHNICIAN documented as of this encounter Mental Status * Because of a physical, mental, or emotional condition, do you have serious difficulty concentrating, remembering, or making decisions? (5 years old or older) Answer Entry Date Author No 10/25/2017 2:00 PM CHEESE WEIGHER Galvan, Am y S, BOILER CONTROL TECHNICIAN documented in this encounter Plan of Treatment Not on file documented as of this encounter Goals Goal Patient Goal Type Associated Problems Recent Progress Patient-Stated? Author Blood Pressure < 140/90 Blood Pressure 134/86(2022 2:25 PM CDT) No Leonard Jasso APRN documented as of this encounter Visit Diagnoses Not on filedocumented in this encounter Care Teams Housing Quality Standard Inspector Relationship Specialty Start Date End Date Leonard Jasso APRN 14[address] [facility] [address] [place] [address] PCP - General Family Medicine 08/15/19 04/30/21 Lacey Perdue MD [address] [phone] Referring Physician Infectious Diseases 06/28/18 documented as of this encounter
--- OUTSIDE RECORDS SUMMARY | 2024-11-23 10:17 | XMS_ITS | Encounter Summary ---
Author Organization [employer] Address [address] [place] [address] Care Team Providers Care Green Building Design Specialist Name Role Phone Lacey Perdue MD Unavailable [phone] Davdi Concepcion APRN Primary Care Provide r Reason for Referral * Diagnostic Radiology (Routine) - Closed Specialty Diagnoses / Procedures Referred By Celine almaguer Referred To Contact Radiology Diagnoses Elevated liver enzymes Procedures US Abdomen Ltd David Concepcion, MANAGER PRINTING [facility] [place] [address] Phone: tel: fax: Referral ID Status Reason Start Date Expiration Date Visits Re quested Visits Authorized [id number] Closed 05/13/2020 05/13/2021 1 1 Reason for Visit * Diagnostic Radiology (Routine) - Closed Specialty Diagnoses / Procedures Referred By Contjessica almauger Referred To Contact Radiology Diagnoses Elevated liver enzymes Procedures US Abdomen Ltd David Concepcion, MANAGER PRINTING [address] [place] [address] Phone: tel: fax: Referral ID Status Reason Start Date Expiration Date Visits Re quested Visits Authorized [id number] Closed 05/13/2020 05/13/2021 1 1 Encounter Details Date Type Department Care Team (Late st Contact Info) Description 05/15/2020 9:43 AM CDT - 05/15/2020 11:59 PM CDT Hospital Encounter [facility] [address] [place] [address] David Concepcion, MANAGER PRINTING [address] [place] [address] Elevated liver enzymes Discharge Disposition: Home - [...] PM T: ??05/15/2020 2:32 PM Report ID: [id number] Reading Location: [facility] Narrative 05/15/2020 2:32 PM CDT [address] [place] [address] Patient Name:EDILBERTO DURAND ?Accession Number: [id number] Patient ID Number:[id number] ?Approval Date: 05/15/2020 2:32 PM Date of [...] Procedure Note Saul Argueta MD - 05/15/[address] [place] [address] Patient Name:EDILBERTO DURAND Accession Number: [id number] Patient ID Number:[id number] Approval Date: 05/15/2020 2:32 PM Date of [...] Saul Argueta M.D. AK: DANAY Report ID: [id number] Reading Location: [facility] us David Concepcion APRN IMG US ORDERABLES Fin al Result documented in this encounter Visit Diagnoses Diagnosis Elevated liver enzymes Nonspecific elevation of levels of transaminase or lactic acid dehydrogenase (LDH) documented in this encounter Care Teams Green Building Design Specialist Relationship Specialty Start Date End Date David Concepcion APRN 14[address] [facility] [address] [place] [address] PCP - General Family Medicine 08/15/19 04/30/21 Lacey Perdue MD [address] [phone] Referring Physician Infectious Diseases 06/28/18 documented as of this encounter
--- OUTSIDE RECORDS SUMMARY | 2024-11-23 10:17 | XMS_ITS | Encounter Summary ---
Author Organization [facility] Address [address] [place] [address] Care Team Providers Care Vice President Financial Name Role Phone Lacey Perdue MD Unavailable Leonard Jasso APRN Primary Care Provide r Encounter Details Date Type Department Care Team (Late st Contact Info) Description 08/16/2020 Orders Only [facility] [address] [place], [place] [address] Leonard Jasso, STONEMASON SUPERVISOR [address] [place] [address] Social History Tobacco Use Types [...] of Assessment Author No 10/25/2017 2:00 PM HUB BANDER Deonna Galvan y S, HOSIERY OPERATOR * Do you have difficulty dressing or bathing? (5 years old or older) Answer Date of Assessment Author No 10/25/2017 2:00 PM HUB BANDER Deonna Galvan y S, HOSIERY OPERATOR * Because of a physical, mental, or emotional condition, do you have difficulty doing errands alone such as visiting a doctor's office or shopping? (15 years old or older) Answer Date of Assessment Author No 10/25/2017 2:00 PM HUB BANDER Deonna Galvan y S, HOSIERY OPERATOR documented as of this encounter Mental Status * Because of a physical, mental, or emotional condition, do you have serious difficulty concentrating, remembering, or making decisions? (5 years old or older) Answer Entry Date Author No 10/25/2017 2:00 PM HUB BANDER Deonna Galvan y S, HOSIERY OPERATOR documented in this encounter Plan of Treatment Not on file documented as of this encounter Goals Goal Patient Goal Type Associated Problems Recent Progress Patient-Stated? Author Blood Pressure < 140/90 Blood Pressure 134/86(2022 2:25 PM CDT) No Leonard Jasso APRN documented as of this encounter Visit Diagnoses Not on filedocumented in this encounter Care Teams Vice President Financial Relationship Specialty Start Date End Date Leonard Jasso APRN 14[address] [facility] [address] [place] [address] PCP - General Family Medicine 08/15/19 04/30/21 Lacey Perdue MD [address] [phone] Referring Physician Infectious Diseases 06/28/18 documented as of this encounter
--- OUTSIDE RECORDS SUMMARY | 2024-11-23 10:17 | XMS_ITS | Encounter Summary ---
Author Organization [employer] Address [address] [place] [address] Care Team Providers Care Youth Officer Name Role Phone Lacey Perdue MD Unavailable [phone] Leonard Jasso APRN Primary Care Provide r Reason for Visit * Reason Comments Arm Pain Encounter Details Date Type Department Care Team (Late st Contact Info) Description 06/05/2020 9:45 PM CDT - 06/05/2020 10:25 PM CDT Emergency [facility] [address] [place] [id number] Isaac Rosas PA-C [address] [place] [address] Cellulitis of arm, left (Primary [...] Author No 10/25/2017 2:00 PM Deonna Padilla, RING BARKER OPERATOR * Are you blind or do you have serious difficulty seeing, even when wearing glasses? Answer Date of Assessment Author No 10/25/2017 2:00 PM Deonna Padilla, RING BARKER OPERATOR * Do you have serious difficulty walking or climbing stairs? (5 years old or older) Answer Date of Assessment Author No 10/25/2017 2:00 PM Deonna Padilla, RING BARKER OPERATOR * Do you have difficulty dressing or bathing? (5 years old or older) Answer Date of Assessment Author No 10/25/2017 2:00 PM Deonna Padilla, RING BARKER OPERATOR * Because of a physical, mental, or emotional condition, do you have difficulty doing errands alone such as visiting a doctor's office or shopping? (15 years old or older) Answer Date of Assessment Author No 10/25/2017 2:00 PM Deonna Padilla, RING BARKER OPERATOR documented as of this encounter Mental Status * Because of a physical, mental, or emotional condition, do you have serious difficulty concentrating, remembering, or making decisions? (5 years old or older) Answer Entry Date Author No 10/25/2017 2:00 PM Deonna Padilla, RING BARKER OPERATOR documented in this encounter Discharge Instructions * Discharge Instructions* Isaac Rosas PA-C - 06/05/2020 10:11 PM CDT Wash the area as usual with soap and water. Take your antibiotic until gone. Follow-up with your primary care provider on Wednesday. * Attachments The following attachments cannot be sent through Care Everywhere. * Cellulitis (Macedonian) documented in this encounter Medications at Time [...] of this encounter ED Notes * Isaac Rosas PA-C - 06/05/2020 10:04 PM CDT History [...] of ankle or foot, acute, right ([facility]) 2018 Stepped on nail ??? Shoulder injury ??? Substance abuse ([facility]) cocaine, crystal meth nothing since 1996 ??? [...] Practitioner Why: follow up cellulitis Contact information: [address] [place] [address] [address] [facility] [id number] [facility] Number of Diagnoses or Management Options Cellulitis [...] RN) documented in this encounter Care Teams Youth Officer Relationship Specialty Start Date End Date Leonard Jasso APRN [address] [facility] [address] [place] [address] PCP - General Family Medicine 08/15/19 04/30/21 Lacey Perdue MD [address] [phone] Referring Physician Infectious Diseases 06/28/18 documented as of this encounter
--- OUTSIDE RECORDS SUMMARY | 2024-11-23 10:17 | XMS_ITS | Encounter Summary ---
Author Organization [employer] Address [address] [place] [address] Care Team Providers Care Painting Contractor Name Role Phone Lacey Perdue MD Unavailable [phone] Leonard Jasso APRN Primary Care Provide r [...] No 10/25/2017 2:00 PM Deonna Padilla S, IMPORT CUSTOMER SERVICE MANAGER * Do you have difficulty dressing or bathing? (5 years old or older) Answer Date of Assessment Author No 10/25/2017 2:00 PM Deonna Padilla S, IMPORT CUSTOMER SERVICE MANAGER * Because of a physical, mental, or emotional condition, do you have difficulty doing errands alone such as visiting a doctor's office or shopping? (15 years old or older) Answer Date of Assessment Author No 10/25/2017 2:00 PM Deonna Padilla S, IMPORT CUSTOMER SERVICE MANAGER documented as of this encounter Mental Status * Because of a physical, mental, or emotional condition, do you have serious difficulty concentrating, remembering, or making decisions? (5 years old or older) Answer Entry Date Author No 10/25/2017 2:00 PM Deonna Padilla, IMPORT CUSTOMER SERVICE MANAGER documented in this encounter Plan of Treatment Not on file documented as of this encounter Goals Goal Patient Goal Type Associated Problems Recent Progress Patient-Stated? Author Blood Pressure < 140/90 Blood Pressure 134/86(2022 2:25 PM CDT) No Leonard Jasso APRN documented as of this encounter Visit Diagnoses Not on filedocumented in this encounter Care Teams Painting Contractor Relationship Specialty Start Date End Date Leonard Jasso APRN 14[address] [facility] [address] [place] [address] PCP - General Family Medicine 08/15/19 04/30/21 Lacey Perdue MD [address] [phone] Referring Physician Infectious Diseases 06/28/18 documented as of this encounter
--- OUTSIDE RECORDS SUMMARY | 2024-11-23 10:17 | XMS_ITS | Encounter Summary ---
Author Organization [employer] Address [address] [place] [address] Care Team Providers Care Hr Systems Analyst Name Role Phone Lacey Perdue MD Unavailable [phone] Leonard Jasso APRN Primary Care Provide r [...] No 10/25/2017 2:00 PM Deonna Padilla S, MUNITIONS FACTORY WORKER * Do you have difficulty dressing or bathing? (5 years old or older) Answer Date of Assessment Author No 10/25/2017 2:00 PM Deonna Padilla S, MUNITIONS FACTORY WORKER * Because of a physical, mental, or emotional condition, do you have difficulty doing errands alone such as visiting a doctor's office or shopping? (15 years old or older) Answer Date of Assessment Author No 10/25/2017 2:00 PM Deonna Padilla S, MUNITIONS FACTORY WORKER documented as of this encounter Mental Status * Because of a physical, mental, or emotional condition, do you have serious difficulty concentrating, remembering, or making decisions? (5 years old or older) Answer Entry Date Author No 10/25/2017 2:00 PM Deonna Padilla, MUNITIONS FACTORY WORKER documented in this encounter Plan of Treatment Not on file documented as of this encounter Goals Goal Patient Goal Type Associated Problems Recent Progress Patient-Stated? Author Blood Pressure < 140/90 Blood Pressure 134/86(2022 2:25 PM CDT) No Leonard Jasso APRN documented as of this encounter Visit Diagnoses Not on filedocumented in this encounter Care Teams Hr Systems Analyst Relationship Specialty Start Date End Date Leonard Jasso APRN 14[address] [facility] [address] [place] [address] PCP - General Family Medicine 08/15/19 04/30/21 Lacey Perdue MD [address] [phone] Referring Physician Infectious Diseases 06/28/18 documented as of this encounter
--- OUTSIDE RECORDS SUMMARY | 2024-11-23 10:17 | XMS_ITS | Encounter Summary ---
Author Organization [employer] Address [address] [place] [address] Care Team Providers Care Ship'S Engineer Name Role Phone Lacey Perdue MD Unavailable [phone] Leonard Jasso APRN Primary Care Provide r Encounter Details Date Type Department Care Team (Late st Contact Info) Description 09/16/2020 Orders Only [address] [place] [address] Amanda Tan, FEDERAL APPELLATE LAW CLERK [address] [place] [address] Social History Tobacco Use Types [...] PM JOHN Galvan Am y S, TUBE BUILDER * Are you blind or do you have serious difficulty seeing, even when wearing glasses? Answer Date of Assessment Author No 10/25/2017 2:00 PM ENDOSCOPY NURSE Cole Am y S, TUBE BUILDER * Do you have serious difficulty walking or climbing stairs? (5 years old or older) Answer Date of Assessment Author No 10/25/2017 2:00 PM ENDOSCOPY NURSE Cole Am y S, TUBE BUILDER * Do you have difficulty dressing or bathing? (5 years old or older) Answer Date of Assessment Author No 10/25/2017 2:00 PM ENDOSCOPY NURSE Cole Am y S, TUBE BUILDER * Because of a physical, mental, or emotional condition, do you have difficulty doing errands alone such as visiting a doctor's office or shopping? (15 years old or older) Answer Date of Assessment Author No 10/25/2017 2:00 PM ENDOSCOPY NURSE Cole Am y S, TUBE BUILDER documented as of this encounter Mental Status * Because of a physical, mental, or emotional condition, do you have serious difficulty concentrating, remembering, or making decisions? (5 years old or older) Answer Entry Date Author No 10/25/2017 2:00 PM JOHN Galvan Am y S, TUBE BUILDER documented in this encounter Plan of Treatment Not on file documented as of this encounter Goals Goal Patient Goal Type Associated Problems Recent Progress Patient-Stated? Author Blood Pressure < 140/90 Blood Pressure 134/86(2022 2:25 PM CDT) No Leonard Jasso APRN documented as of this encounter Visit Diagnoses Not on filedocumented in this encounter Care Teams Ship'S Engineer Relationship Specialty Start Date End Date Leonard Jasso APRN [address] [facility] [address] [place] [address] PCP - General Family Medicine 08/15/19 04/30/21 Lacey Perdue MD [address] [phone] Referring Physician Infectious Diseases 06/28/18 documented as of this encounter
--- OUTSIDE RECORDS SUMMARY | 2024-11-23 10:17 | XMS_ITS | Encounter Summary ---
Author Organization [employer] Address [address] [place] [address] Care Team Providers Care Sole Conforming Machine Operator Name Role Phone Lacey Perdue MD Unavailable [phone] Leonard Jasso APRN Primary Care Provide r [...] No 10/25/2017 2:00 PM Deonna Padilla S, RAIL SIGNAL WORKER * Do you have difficulty dressing or bathing? (5 years old or older) Answer Date of Assessment Author No 10/25/2017 2:00 PM Deonna Padilla S, RAIL SIGNAL WORKER * Because of a physical, mental, or emotional condition, do you have difficulty doing errands alone such as visiting a doctor's office or shopping? (15 years old or older) Answer Date of Assessment Author No 10/25/2017 2:00 PM Deonna Padilla S, RAIL SIGNAL WORKER documented as of this encounter Mental Status * Because of a physical, mental, or emotional condition, do you have serious difficulty concentrating, remembering, or making decisions? (5 years old or older) Answer Entry Date Author No 10/25/2017 2:00 PM Deonna Padilla, RAIL SIGNAL WORKER documented in this encounter Plan of Treatment Not on file documented as of this encounter Goals Goal Patient Goal Type Associated Problems Recent Progress Patient-Stated? Author Blood Pressure < 140/90 Blood Pressure 134/86(2022 2:25 PM CDT) No Leonard Jasso APRN documented as of this encounter Visit Diagnoses Not on filedocumented in this encounter Care Teams Sole Conforming Machine Operator Relationship Specialty Start Date End Date Leonard Jasso APRN 1454 [facility] [address] [place] [address] PCP - General Family Medicine 08/15/19 04/30/21 Lacey Perdue MD [address] [phone] Referring Physician Infectious Diseases 06/28/18 documented as of this encounter
--- OUTSIDE RECORDS SUMMARY | 2024-11-23 10:17 | XMS_ITS | Encounter Summary ---
Author Organization [employer] Address [address] [place] [address] Care Team Providers Care Harmonic Analyst Name Role Phone Lacey Perdue MD Unavailable [phone] Leonard Jasso APRN Primary Care Provide r [...] No 10/25/2017 2:00 PM Deonna Padilla S, MILK VENDOR * Do you have difficulty dressing or bathing? (5 years old or older) Answer Date of Assessment Author No 10/25/2017 2:00 PM Deonna Padilla S, MILK VENDOR * Because of a physical, mental, or emotional condition, do you have difficulty doing errands alone such as visiting a doctor's office or shopping? (15 years old or older) Answer Date of Assessment Author No 10/25/2017 2:00 PM Deonna Padilla S, MILK VENDOR documented as of this encounter Mental Status * Because of a physical, mental, or emotional condition, do you have serious difficulty concentrating, remembering, or making decisions? (5 years old or older) Answer Entry Date Author No 10/25/2017 2:00 PM Deonna Padilla, MILK VENDOR documented in this encounter Plan of Treatment Not on file documented as of this encounter Goals Goal Patient Goal Type Associated Problems Recent Progress Patient-Stated? Author Blood Pressure < 140/90 Blood Pressure 134/86(2022 2:25 PM CDT) No Leonard Jasso APRN documented as of this encounter Visit Diagnoses Not on filedocumented in this encounter Care Teams Harmonic Analyst Relationship Specialty Start Date End Date Leonard Jasso APRN 1454 [facility] [address] [place] [address] PCP - General Family Medicine 08/15/19 04/30/21 Lacey Perdue MD [address] [phone] Referring Physician Infectious Diseases 06/28/18 documented as of this encounter
--- OUTSIDE RECORDS SUMMARY | 2024-11-23 10:17 | XMS_ITS | Encounter Summary ---
Author Organization [employer] Address [address] [place] [address] Care Team Providers Care Day Care Provider Name Role Phone Lacey Perdue MD Unavailable [phone] Leonard Jasso APRN Primary Care Provide r Reason for Referral * Referral (Routine) - Closed Specialty Diagnoses / Procedures Referred By Celine almaguer Referred To Contact General Surgery Diagnoses Calculus of gallbladder without cholecystitis without obstruction Leonard Jasso, [facility] [address] [place] [address] Phone: tel: fax: Siddhartha Loyd MD [address] [place] [address] [place] [address] Phone: tel: fax: Referral ID Status Reason Start Date Expiration Date V isits Requested Visits Authorized [id number] Closed Specialty Services Required 09/09/2020 09/09/2021 1 1 Reason for Visit * Reason Comments ED Followup Patient is here for a follow upleft wrist pain. Encounter Details Date Type Department Care Team (Late st Contact Info) Description 09/09/2020 10:00 AM CDT Office Visit [address] [address] Leonard Jasso, ORCHARD HAND [address] [place] [address] Other osteoarthritis involving multiple joints (Primary Dx); [...] control your blood sugar. We have a Diesel Trailer Mechanic that comes to the office and a Overlock Waistline Joiner available at [facility] for you to meet with and learn [...] waves. When should you call for help? [id number] anytime you think you may need emergency [...] option found under the Resources tab in [employer] [email or web address]. If you do not have access to [employer], you can visit [email or web address] and select Health Library from the menu on the left. Enter S165 in the search box to learn more about Tinnitus: Care Instructions. Not on [employer]? Go to [email or web address] and click the Sign Up Now link to request an activation code. Current as of: June 12, 2019?Content Version: 12.5 ?? [id number] [employer]. Care instructions adapted under license by your healthcare professional. This care instruction is for use with your licensed healthcare professional. If you have questions about a medical condition or this instruction, always ask your healthcare professional. [employer] disclaims any warranty or liability for your use of this information. documented in this encounter Progress Notes * Leonard Jasso APNP - 09/09/2020 10:00 AM CDT Chief Complaint Patient presents with ??? ED Followup Patient is here for a follow upleft wrist pain. [address] [address] Dept: [phone] Dept Loc: [phone] Loc Date: 09/09/2020 Name: Edilberto Durand : 1955 PCP: TIFFANI Galeano Subjective: Patient ID: Edilberto Durand is a 64 y.o. male. [address] [place] [address] Patient Name:EDILBERTO DURAND Accession Number: [id number] Patient ID Number:[id number] Approval Date: 09/08/2020 6:37 PM Date of [...] control your blood sugar. We have a Diesel Trailer Mechanic that comes to the office and a Overlock Waistline Joiner available at [facility] for you to meet with and learn [...] TO GENERAL SURGERY Routine 11/28/2020 9:17 AM CORE SHAPER SIDES Calculus of gallbladder without cholecystitis without obstruction documented in this encounter Results * Amb Ref to General Surgery (11/28/2020 9:17 AM CORE SHAPER SIDES) Leonard Jasso APRN OUTPATIENT REFERRAL O RDERABLES Final Result [facility] [address] [place], [place] [phone] * (ABNORMAL) Comprehensive metabolic panel (09/09/2020 10:50 AM CDT) Sodium 137 136 - 145 mmol/L 09/09/2020 6:38 PM [facility] Potassium 4.6 3.5 - 5.1 mmol/L 09/09/2020 6:38 PM [facility] Chloride 103 98 - 107 mmol/L 09/09/2020 6:38 PM [facility] CO2 26 21 - 32 mmol/L 09/09/2020 6:38 PM [facility] Glucose 119(H) 74 - 106 mg/dL 09/09/2020 6:38 PM [facility] BUN 16 7.0 - 18.0 mg/dL 09/09/2020 6:38 PM [facility] Creatinine 1.00 0.70 - 1.30 mg/dL 09/09/2020 6:38 PM [facility] Calcium 9.1 8.5 - 10.1 mg/dL 09/09/2020 6:38 PM [facility] Total Protein 7.6 6.4 - 8.2 g/dL 09/09/2020 6:38 PM [facility] Albumin 3.9 3.4 - 5.0 g/dL 09/09/2020 6:38 PM [facility] Bilirubin Total 0.4 0.2 - 1.0 mg/dL 09/09/2020 6:38 PM [facility] Alkaline Phosphatase 80 56 - 119 U/L 09/09/2020 6:38 PM [facility] AST 54(H) 15 - 37 U/L 09/09/2020 6:38 PM [facility] ALT 90(H) 16 - 63 U/L 09/09/2020 6:38 PM [facility] Anion Gap 8 8 - 16 mmol/L 09/09/2020 6:38 PM [facility] BUN/Creatinine Ratio 16.0 09/09/2020 6:38 PM [facility] Osmolality Calculated 276(L) 285 - 295 mosm/kg 09/09/2020 6:38 PM [facility] Globulin 3.7(H) 2.3 - 3.4 g/dL 09/09/2020 6:38 PM [facility] A/G Ratio 1.1(L) 1.2 - 2.4 09/09/2020 6:38 PM [facility] Creatinine Based eGFR 78 mL/min/[1. 73_m2] 09/09/2020 6:38 PM [facility] Comment:GFR 60-90 Mild decre ased GFR. EGFR /Turkish >90 mL/min/[1. 73_m2] 09/09/2020 6:38 PM CDT [facility] Comment:GFR >90 Normal or el evated GFR. Serum specimen (specimen) 09/09/2020 10:50 AM CDT 09/09/2020 5:38 PM CDT us Leonard Jasso APRN LAB BLOOD ORDERABLES Final Result [facility] [address] [facility] [address] [place] [address] * (ABNORMAL) Hemoglobin A1c (09/09/2020 10:50 AM CDT) Hemoglobin A1C 6.1(H) 3.8 - 5.6 % 09/09/2020 5:58 PM CDT [facility] Whole blood specimen (specimen) 09/09/2020 10:50 AM CDT 09/09/2020 5:38 PM CDT us Leonard Jasso APRN LAB BLOOD ORDERABLES Final Result Performing Organization Address City/[facility] Co de Phone Number [facility] [address] [facility] [address] [place] [address] documented in this encounter Visit Diagnoses Diagnosis Other osteoarthritis involving multiple joints- Primary Calculus of gallbladder without cholecystitis without obstruction Calculus of gallbladder without mention of cholecystitis or obstruction Borderline diabetes Other abnormal glucose Tinnitus of both ears Unspecified tinnitus documented in this encounter Care Teams Day Care Provider Relationship Specialty Start Date End Date Leonard Jasso APRN 14[address] [facility] [address] [place] [address] PCP - General Family Medicine 08/15/19 04/30/21 Lacey Perdue MD [address] [phone] Referring Physician Infectious Diseases 06/28/18 documented as of this encounter
--- OUTSIDE RECORDS SUMMARY | 2024-11-23 10:17 | XMS_ITS | Encounter Summary ---
Author Organization [employer] Address [address] [place] [address] Care Team Providers Care Costume Director Name Role Phone Lacey Perdue MD Unavailable [phone] Leonard Jasso APRN Primary Care Provide r Encounter Details Date Type Department Care Team (Latest Contact Info) Description 05/10/2020 4:20 PM CDT - 05/10/2020 11:59 PM CDT Hospital Encounter [facility] [address] [place] [address] Right lower quadrant abdominal pain; [...] of Assessment Author No 10/25/2017 2:00 PM STRIP CATCHER Deonna Galvan, GEORGE * Are you blind [...] - 5.6 % 05/13/2020 9:32 AM CDT [facility] Whole blood specimen (specimen) 05/10/2020 4:43 PM CDT 05/13/2020 8:50 AM CDT us Leonard Jasso APRN LAB BLOOD ORDERABLES Final Result [facility] [address] [facility] [address] [place] [address] * (ABNORMAL) Comprehensive metabolic panel (05/10/2020 4:43 PM [facility]) Sodium 140 136 - 145 mmol/L 05/10/2020 5:27 PM [facility] Potassium 4.2 3.5 - 5.1 mmol/L 05/10/2020 5:27 PM [facility] Chloride 104 98 - 107 mmol/L 05/10/2020 5:27 PM [facility] CO2 27 21 - 32 mmol/L 05/10/2020 5:27 PM [facility] Glucose 143(H) 74 - 106 mg/dL 05/10/2020 5:27 PM [facility] BUN 16 7.0 - 18.0 mg/dL 05/10/2020 5:27 PM [facility] Creatinine 1.23 0.70 - 1.30 mg/dL 05/10/2020 5:27 PM [facility] Calcium 9.3 8.5 - 10.1 mg/dL 05/10/2020 5:27 PM [facility] Total Protein 7.9 6.4 - 8.2 g/dL 05/10/2020 5:27 PM [facility] Albumin 4.2 3.4 - 5.0 g/dL 05/10/2020 5:27 PM [facility] Bilirubin Total 0.7 0.2 - 1.0 mg/dL 05/10/2020 5:27 PM [facility] Alkaline Phosphatase 91 56 - 119 U/L 05/10/2020 5:27 PM [facility] AST 115(H) 15 - 37 U/L 05/10/2020 5:27 PM [facility] ALT 167(H) 16 - 63 U/L 05/10/2020 5:27 PM [facility] Anion Gap 9 8 - 16 mmol/L 05/10/2020 5:27 PM [facility] BUN/Creatinine Ratio 13.0 05/10/2020 5:27 PM [facility] Osmolality Calculated 283(L) 285 - 295 mosm/kg 05/10/2020 5:27 PM [facility] Globulin 3.7(H) 2.3 - 3.4 g/dL 05/10/2020 5:27 PM [facility] A/G Ratio 1.1(L) 1.2 - 2.4 05/10/2020 5:27 PM [facility] Creatinine Based eGFR 61 mL/min/[1. 73_m2] 05/10/2020 5:27 PM [facility] Comment:GFR 60-90 Mild decre ased GFR. EGFR /Icelandic 70 mL/min/[1. 73_m2] 05/10/2020 5:27 PM [facility] Comment:GFR 60-90 Mild decre ased GFR. Serum specimen (specimen) 05/10/2020 4:43 PM CDT 05/10/2020 4:47 PM CDT Leonard Jasso SPUD DRILLER LAB BLOOD ORDERABLES Final Result [facility] [address] [facility] [address] [place] [address] * (ABNORMAL) CBC and differential (05/10/2020 4:43 PM CDT) WBC 10.78 4.00 - 11.00 10*3/uL 05/10/2020 4:51 PM [facility] RBC 5.09 4.50 - 6.50 10*6/uL 05/10/2020 4:51 PM [facility] HGB 15.8 13.8 - 18.0 g/dL 05/10/2020 4:51 PM [facility] HCT 46.5 40.0 - 54.0 % 05/10/2020 4:51 PM [facility] MCV 91.4 76 - 99 fL 05/10/2020 4:51 PM [facility] MCH 31.0 27.0 - 32.0 pg 05/10/2020 4:51 PM [facility] MCHC 34.0 30.0 - 35.0 g/dL 05/10/2020 4:51 PM [facility] Platelets 205 135 - 470 10*3/uL 05/10/2020 4:51 PM [facility] RDW-CV 11.9 11.0 - 17.0 % 05/10/2020 4:51 PM [facility] MPV 9.7 8.0 - 12.5 fL 05/10/2020 4:51 PM [facility] Differential Type AUTOMATED DIFFERENTIAL 05/10/2020 4:52 PM [facility] Neutrophil % 70.4 45.0 - 75.0 % 05/10/2020 4:52 PM [facility] Lymphocytes % 20.0 20.0 - 45.0 % 05/10/2020 4:52 PM [facility] Monocyte % 7.5 0.0 - 10.0 % 05/10/2020 4:52 PM [facility] Eosinophils Relative % 1.2 0.0 - 5.0 % 05/10/2020 4:52 PM [facility] Basophils % 0.4 0.0 - 2.0 % 05/10/2020 4:52 PM [facility] Immature Granulocytes% 0.5 0.0 - 1.6 % 05/10/2020 4:52 PM [facility] Neutrophils Absolute 7.59 2.00 - 7.90 10*3/uL 05/10/2020 4:52 PM [facility] Lymphocytes Absolute 2.16 1.00 - 4.00 10*3/uL 05/10/2020 4:52 PM [facility] Monos Absolute 0.81(H) 0.00 - 0.80 10*3/uL 05/10/2020 4:52 PM [facility] Eosinophils Absolute Count 0.13 0.00 - 0.40 10*3/uL 05/10/2020 4:52 PM [facility] Basophils Absolute 0.04 0.00 - 0.10 10*3/uL 05/10/2020 4:52 PM [facility] Immature Granulocytes Absolute 0.05 0.0 - 0.20 10*3/uL 05/10/2020 4:52 PM CDT [facility] Serum specimen (specimen) 05/10/2020 4:43 PM CDT 05/10/2020 4:47 PM CDT Leonard Jasso SPUD DRILLER LAB BLOOD ORDERABLES Final Result [facility] [address] [facility] [address] [place] [address] documented in this encounter Visit Diagnoses Diagnosis Right lower quadrant abdominal pain Abdominal pain, right lower quadrant Elevated fasting glucose Impaired fasting glucose documented in this encounter Care Teams Costume Director Relationship Specialty Start Date End Date Leonard Jasso APRN [address] [facility] [address] [place] [address] PCP - General Family Medicine 08/15/19 04/30/21 Lacey Perdue MD [address] [address] Referring Physician Infectious Diseases 06/28/18 documented as of this encounter
--- OUTSIDE RECORDS SUMMARY | 2024-11-23 10:17 | XMS_ITS | Encounter Summary ---
Author Organization [employer] Address [address] [place] [address] Care Team Providers Care Tagman Name Role Phone Lacey Perdue MD Unavailable [phone] Leonard Jasso APRN Primary Care Provide r Reason for Visit * Reason Comments Wrist Pain Encounter Details Date Type Department Care Team (Late st Contact Info) Description 09/08/2020 5:02 PM CDT - 09/08/2020 6:54 PM CDT Emergency [facility] Emergency Department [address] [place] [id number] Rickey Bailey F, DO [address] [address] Arthritis of left wrist (Primary Dx); Left [...] Author No 10/25/2017 2:00 PM Deonna Padilla, FOXING CUTTING MACHINE OPERATOR * Are you blind or do you have serious difficulty seeing, even when wearing glasses? Answer Date of Assessment Author No 10/25/2017 2:00 PM Deonna Padilla, FOXING CUTTING MACHINE OPERATOR * Do you have serious difficulty walking or climbing stairs? (5 years old or older) Answer Date of Assessment Author No 10/25/2017 2:00 PM Deonna Padilla, FOXING CUTTING MACHINE OPERATOR * Do you have difficulty dressing or bathing? (5 years old or older) Answer Date of Assessment Author No 10/25/2017 2:00 PM Deonna Padilla, FOXING CUTTING MACHINE OPERATOR * Because of a physical, mental, or emotional condition, do you have difficulty doing errands alone such as visiting a doctor's office or shopping? (15 years old or older) Answer Date of Assessment Author No 10/25/2017 2:00 PM Deonna Padilla, FOXING CUTTING MACHINE OPERATOR documented as of this encounter Mental Status * Because of a physical, mental, or emotional condition, do you have serious difficulty concentrating, remembering, or making decisions? (5 years old or older) Answer Entry Date Author No 10/25/2017 2:00 PM Deonna Padilla, FOXING CUTTING MACHINE OPERATOR documented in this encounter Discharge Instructions [...] your doctor if you can take an [id number] medicine. ?? Use a cane, crutch, walker, [...] option found under the Resources tab in [employer] [email or web address]. If you do not have access to [employer], you can visit [email or web address] and select [employer] from the menu on the left. Enter Z807 in the search box to learn more about Arthritis: Care Instructions. Not on [employer]? Go to [email or web address] and click the Sign Up Now link to request an activation code. Current as of: October 23, 2019?Content Version: 12.5 ?? [employer]. Care instructions adapted under license by your healthcare professional. This care instruction is for use with your licensed healthcare professional. If you have questions about a medical condition or this instruction, always ask your healthcare professional. [employer] disclaims any warranty or liability for your [...] time 09/08/20 18:37:52 Final result by Saul Dougals MD (09/08/20 18:37:52) Impression: No gross acute osseous abnormality of the left wrist. THIS IS AN ELECTRONICALLY VERIFIED FINAL REPORT 09/08/2020 6:37 PM - Electronically signed by Saul Douglas M.D. AG: SHERRY Report ID: [id number] Reading Location: [place] [address] Narrative: [address] [place] [address] Patient Name:EDILBERTO DURAND Accession Number: [id number] Patient ID Number:[id number] Approval Date: 09/08/2020 6:37 PM Date of [...] consultation in person. PPE I used included [id number]. Rickey Bailey DO 09/08/201844 * Kellie Ng [...] PM T: ??09/08/2020 6:37 PM Report ID: [id number] Reading Location: ??[id number] Narrative 09/08/2020 6:37 PM CDT [address] [place] [address] Patient Name:EDILBERTO DURAND ?Accession Number: [id number] Patient ID Number:[id number] ?Approval Date: 09/08/2020 6:37 PM Date of [...] Procedure Note Saul Douglas MD - 09/08/[address] [place] [address] Patient Name:EDILBERTO DURAND Accession Number: [id number] Patient ID Number:[id number] Approval Date: 09/08/2020 6:37 PM Date of [...] Saul Douglas M.D. AG: SHERRY Report ID: [id number] Reading Location: [place] [address] iRckey Bailey DO IMG DIAGNOSTIC IMAGING PASCUAL VARSHA Final Result documented in this encounter Visit Diagnoses Diagnosis Arthritis of left wrist- Primary Left wrist pain Pain in joint, forearm documented in this encounter Care Teams Tagman Relationship Specialty Start Date End Date Leonard Jasso APRN [facility] [address] [place] [address] PCP - General Family Medicine 08/15/19 04/30/21 Lacey Perdue MD [address] [address] Referring Physician Infectious Diseases 06/28/18 documented as of this encounter
--- OUTSIDE RECORDS SUMMARY | 2024-11-23 10:17 | XMS_ITS | Encounter Summary ---
Author Organization [employer] Address [address] [place] [address] Care Team Providers Care Product Responsibility Liaison Name Role Phone Lacey Perdue MD Unavailable [phone] Leonard Jasso APRN Primary Care Provide r Reason for Visit * Reason Comments Abscess Right axilla Encounter Details Date Type Department Care Team (Late st Contact Info) Description 09/13/2020 1:00 PM CDT Office Visit [address] [place] [address] Amanda Tan, LEGAL COMPLIANCE OFFICER [address] [place] [address] Cellulitis of axilla, right (Primary [...] 2:00 PM Deonna Padilla S, HEAD OF HUMAN RESOURCES * Are you blind or do you have serious difficulty seeing, even when wearing glasses? Answer Date of Assessment Author No 10/25/2017 2:00 PM POTATO INSPECTOR Deonna Galvan S, HEAD OF HUMAN RESOURCES * Do you have serious difficulty walking or climbing stairs? (5 years old or older) Answer Date of Assessment Author No 10/25/2017 2:00 PM Deonna Padilla S, HEAD OF HUMAN RESOURCES * Do you have difficulty dressing or bathing? (5 years old or older) Answer Date of Assessment Author No 10/25/2017 2:00 PM POTATO INSPECTOR Deonna Galvan y S, HEAD OF HUMAN RESOURCES * Because of a physical, mental, or emotional condition, do you have difficulty doing errands alone such as visiting a doctor's office or shopping? (15 years old or older) Answer Date of Assessment Author No 10/25/2017 2:00 PM POTATO INSPECTOR Deonna Galvan S, HEAD OF HUMAN RESOURCES documented as of this encounter Mental Status * Because of a physical, mental, or emotional condition, do you have serious difficulty concentrating, remembering, or making decisions? (5 years old or older) Answer Entry Date Author No 10/25/2017 2:00 PM Deonna Padilla S, HEAD OF HUMAN RESOURCES documented in this encounter Progress Notes * Amanda Mullins, LEGAL COMPLIANCE OFFICER - 09/13/2020 1:00 PM CDT Images from the original note were not included. [facility] [address] [facility] [address] Dept: [phone] Dept Loc: [phone] Loc Date: 09/13/20 Name: Edilberto Hawley : 1955 PCP: TIFFANI Galeano Chief Complaint Patient presents with ??? Abscess Right axilla Subjective: Patient ID: Edilberto Hawley is a 64 y.o. male HPI Patient is here for an acute visit today, his PCP is Dylan Jasso NP in [place]. Last night he noticed some increased redness and swelling in the right axilla. It was the size of a soft ball at the that time. This morning is was smaller, but black oxide coating equipment tender to the touch. He has extensive [...] Quadrant documented in this encounter Care Teams Product Responsibility Liaison Relationship Specialty Start Date End Date Leonard Jasso APRN [address] [facility] [address] [place] [address] PCP - General Family Medicine 08/15/19 04/30/21 Lacey Perdue MD [address] [address] Referring Physician Infectious Diseases 06/28/18 documented as of this encounter
--- OUTSIDE RECORDS SUMMARY | 2024-11-23 10:17 | XMS_ITS | Encounter Summary ---
Author Organization [employer] Address [address] [place] [address] Care Team Providers Care Director Business Intelligence Name Role Phone Lacey Perdue MD Unavailable [phone] Leonard Jasso APRN Primary Care Provide r [...] No 10/25/2017 2:00 PM Deonna Padilla S, CREDIT PORTFOLIO MANAGER * Do you have difficulty dressing or bathing? (5 years old or older) Answer Date of Assessment Author No 10/25/2017 2:00 PM Deonna Padilla S, CREDIT PORTFOLIO MANAGER * Because of a physical, mental, or emotional condition, do you have difficulty doing errands alone such as visiting a doctor's office or shopping? (15 years old or older) Answer Date of Assessment Author No 10/25/2017 2:00 PM Deonna Padilla S, CREDIT PORTFOLIO MANAGER documented as of this encounter Mental Status * Because of a physical, mental, or emotional condition, do you have serious difficulty concentrating, remembering, or making decisions? (5 years old or older) Answer Entry Date Author No 10/25/2017 2:00 PM Deonna Padilla, CREDIT PORTFOLIO MANAGER documented in this encounter Plan of Treatment Not on file documented as of this encounter Goals Goal Patient Goal Type Associated Problems Recent Progress Patient-Stated? Author Blood Pressure < 140/90 Blood Pressure 134/86(2022 2:25 PM CDT) No Leonard Jasso APRN documented as of this encounter Visit Diagnoses Not on filedocumented in this encounter Care Teams Director Business Intelligence Relationship Specialty Start Date End Date Leonard Jasso APRN [address] [facility] [address] [place] [address] PCP - General Family Medicine 08/15/19 04/30/21 Lacey Perdue MD [address] [id number] Referring Physician Infectious Diseases 06/28/18 documented as of this encounter
--- OUTSIDE RECORDS SUMMARY | 2024-11-23 10:17 | XMS_ITS | Encounter Summary ---
Author Organization [employer] Address [address] [place] [address] Care Team Providers Care Hospital Tray Service Worker Name Role Phone Lacey Perdue MD Unavailable [phone] Leonard Jasso APRN Primary Care Provide r [...] No 10/25/2017 2:00 PM Deonna Padilla S, ORNAMENTAL IRONWORKING SUPERVISOR * Do you have difficulty dressing or bathing? (5 years old or older) Answer Date of Assessment Author No 10/25/2017 2:00 PM Deonna Padilla S, ORNAMENTAL IRONWORKING SUPERVISOR * Because of a physical, mental, or emotional condition, do you have difficulty doing errands alone such as visiting a doctor's office or shopping? (15 years old or older) Answer Date of Assessment Author No 10/25/2017 2:00 PM Deonna Padilla S, ORNAMENTAL IRONWORKING SUPERVISOR documented as of this encounter Mental Status * Because of a physical, mental, or emotional condition, do you have serious difficulty concentrating, remembering, or making decisions? (5 years old or older) Answer Entry Date Author No 10/25/2017 2:00 PM Deonna Padilla, ORNAMENTAL IRONWORKING SUPERVISOR documented in this encounter Plan of Treatment Not on file documented as of this encounter Goals Goal Patient Goal Type Associated Problems Recent Progress Patient-Stated? Author Blood Pressure < 140/90 Blood Pressure 134/86(2022 2:25 PM CDT) No Leonard Jasso APRN documented as of this encounter Visit Diagnoses Not on filedocumented in this encounter Care Teams Hospital Tray Service Worker Relationship Specialty Start Date End Date Leonard Jasso APRN [address] [facility] [address] [place] [address] PCP - General Family Medicine 08/15/19 04/30/21 Lacey Perdue MD [address] [phone] Referring Physician Infectious Diseases 06/28/18 documented as of this encounter
--- OUTSIDE RECORDS SUMMARY | 2024-11-23 10:18 | XMS_ITS | Encounter Summary ---
Author Organization [employer] Address [address] [place] [address] Care Team Providers Care Garden Equipment Mechanic Name Role Phone Lacey Perdue MD Unavailable [phone] Leonard Jasso APRN Primary Care Provide r Reason for Visit * Reason Comments Back Pain chronic low back parth n Encounter Details Date Type Department Care Team (Late st Contact Info) Description 12/15/2019 3:00 PM MANAGER SUPPORT Office Visit [address] [phone] Leonard Jasso, ANGIE [address] [place] [phone] Chronic bilateral low back pain without sciatica [...] Comments Blood Pressure 118/80 12/15/2019 2:50 PM MANAGER SUPPORT Pulse 85 12/15/2019 2:50 PM MANAGER SUPPORT Temperature 36.6 ??C (97.9 ??F) 12/15/2019 2:50 PM CS T Respiratory Rate 20 12/15/2019 2:50 PM MANAGER SUPPORT Oxygen Saturation 96% 12/15/2019 2:50 PM MANAGER SUPPORT Inhaled Oxygen Concentration - - Weight 89.6 kg (197 lb 8 oz) 12/15/2019 2:50 PM MANAGER SUPPORT Height 180.3 cm (5' 11 ) 12/15/2019 2:50 PM MANAGER SUPPORT Body Mass Index 27.55 12/15/2019 2:50 PM MANAGER SUPPORT documented in this encounter Functional Status * Are you deaf or do you have serious difficulty hearing? Answer Date of Assessment Author No 10/25/2017 2:00 PM MANAGER SUPPORT Deonna Galvan, GED INSTRUCTOR * Are you blind or do you have serious difficulty seeing, even when wearing glasses? Answer Date of Assessment Author No 10/25/2017 2:00 PM Deonna Padilla S, GED INSTRUCTOR * Do you have serious difficulty walking or climbing stairs? (5 years old or older) Answer Date of Assessment Author No 10/25/2017 2:00 PM Deonna Padilla, GED INSTRUCTOR * Do you have difficulty dressing or bathing? (5 years old or older) Answer Date of Assessment Author No 10/25/2017 2:00 PM MANAGER SUPPORT Deonna Galvan S, GED INSTRUCTOR * Because of a physical, mental, or emotional condition, do you have difficulty doing errands alone such as visiting a doctor's office or shopping? (15 years old or older) Answer Date of Assessment Author No 10/25/2017 2:00 PM Deonna Padilla, GED INSTRUCTOR documented as of this encounter Mental Status * Because of a physical, mental, or emotional condition, do you have serious difficulty concentrating, remembering, or making decisions? (5 years old or older) Answer Entry Date Author No 10/25/2017 2:00 PM Deonna Padilla, GED INSTRUCTOR documented in this encounter Patient Instructions * Patient Instructions* Leonard Jasso APNP - 12/15/2019 3:00 PM MANAGER SUPPORT Take medications exactly as prescribed. Warm moist [...] the agreement. Follow up in 3 months. GER SUPPORT documented in this encounter Progress Notes * Leonard Jasso APNP - 12/15/2019 3:00 PM CST Chief Complaint Patient presents with ??? Back Pain chronic low back pain [address] [address] Dept: [phone] Dept Loc: [phone] Loc Date: 12/15/2019 Name: Edilberto Hawley : 1955 PCP: TIFFANI Galeano Subjective: Patient ID: Edilberto Hawley is a 64 y.o. male. Again explained recommendation to see Dr. Gann at [facility] for [place]. History provided by: Patient Back [...] 12/15/2019 Signed: TIFFANI Galeano 12/18/2019 10:49 AM GER SUPPORT documented in this encounter Plan of Treatment [...] claudication documented in this encounter Care Teams Garden Equipment Mechanic Relationship Specialty Start Date End Date Leonard Jasso APRN 1454 [facility] [address] [place] [address] PCP - General Family Medicine 08/15/19 04/30/21 Lacey Perdue MD [address] [address] Referring Physician Infectious Diseases 06/28/18 documented as of this encounter
--- OUTSIDE RECORDS SUMMARY | 2024-11-23 10:18 | XMS_ITS | Encounter Summary ---
Author Organization [employer] Address [address] [place] [address] Care Team Providers Care Sports Activities Foul Judge Name Role Phone Lacey Perdue MD Unavailable [phone] Leonard Jasso APRN Primary Care Provide r Reason for Visit * Reason Comments Medication Refill Encounter Details Date Type Department Care Team (Late st Contact Info) Description 04/01/[address] [address] Leonard Jasso, ANGIE [address] [place] [address] Social History Tobacco Use Types Packs/Day [...] Author No 10/25/2017 2:00 PM Deonna Padilla, VENEER CUTTER * Are you blind or do you have serious difficulty seeing, even when wearing glasses? Answer Date of Assessment Author No 10/25/2017 2:00 PM Deonna Padilla, VENEER CUTTER * Do you have serious difficulty walking or climbing stairs? (5 years old or older) Answer Date of Assessment Author No 10/25/2017 2:00 PM Deonna Padilla, VENEER CUTTER * Do you have difficulty dressing or bathing? (5 years old or older) Answer Date of Assessment Author No 10/25/2017 2:00 PM Deonna Padilla, VENEER CUTTER * Because of a physical, mental, or emotional condition, do you have difficulty doing errands alone such as visiting a doctor's office or shopping? (15 years old or older) Answer Date of Assessment Author No 10/25/2017 2:00 PM Deonna Padilla, VENEER CUTTER documented as of this encounter Mental [...] on filedocumented in this encounter Care Teams Sports Activities Foul Judge Relationship Specialty Start Date End Date Leonard Jasso APRN 1454 [facility] [address] [place] [address] PCP - General Family Medicine 08/15/19 04/30/21 Lacey Perdue MD [address] [address] Referring Physician Infectious Diseases 06/28/18 documented as of this encounter
--- OUTSIDE RECORDS SUMMARY | 2024-11-23 10:18 | XMS_ITS | Encounter Summary ---
Author Organization [employer] Address [address] [place] [address] Care Team Providers Care Acid Plant Helper Name Role Phone Lacey Perdue MD Unavailable [phone] Leonard Jasso APRN Primary Care Provide r [...] No 10/25/2017 2:00 PM Deonna Padilla S, PARTS CATALOGER * Do you have difficulty dressing or bathing? (5 years old or older) Answer Date of Assessment Author No 10/25/2017 2:00 PM Deonna Padilla S, PARTS CATALOGER * Because of a physical, mental, or emotional condition, do you have difficulty doing errands alone such as visiting a doctor's office or shopping? (15 years old or older) Answer Date of Assessment Author No 10/25/2017 2:00 PM Deonna Padilla S, PARTS CATALOGER documented as of this encounter Mental Status * Because of a physical, mental, or emotional condition, do you have serious difficulty concentrating, remembering, or making decisions? (5 years old or older) Answer Entry Date Author No 10/25/2017 2:00 PM Deonna Padilla, PARTS CATALOGER documented in this encounter Plan of Treatment Not on file documented as of this encounter Goals Goal Patient Goal Type Associated Problems Recent Progress Patient-Stated? Author Blood Pressure < 140/90 Blood Pressure 134/86(2022 2:25 PM CDT) No Leonard Jasso APRN documented as of this encounter Visit Diagnoses Not on filedocumented in this encounter Care Teams Acid Plant Helper Relationship Specialty Start Date End Date Leonard Jasso APRN 1454 [facility] [address] [place] [address] PCP - General Family Medicine 08/15/19 04/30/21 Lacey Perdue MD [address] [phone] Referring Physician Infectious Diseases 06/28/18 documented as of this encounter
--- OUTSIDE RECORDS SUMMARY | 2024-11-23 10:18 | XMS_ITS | Encounter Summary ---
Author Organization [employer] Address [address] [place] [address] Care Team Providers Care Maintenance Service Supervisor Name Role Phone Lacey Perdue MD Unavailable [phone] Leonard Jasso APRN Primary Care Provide r Reason for Visit * Reason Onset Date Comments Results 09/01/2019 MRI Encounter Details Date Type Department Care Team (Late st Contact Info) Description 09/01/[address] [address] Zoey Seaman, YARN SPINNER [address] [facility] [address] [place] [address] Results (MRI ) Social History [...] Assessment Author No 10/25/2017 2:00 PM SUPERVISOR JOINERS Galvan, Am y S, PEDIATRIC NURSE PRACTITIONER * Do you have serious difficulty walking or climbing stairs? (5 years old or older) Answer Date of Assessment Author No 10/25/2017 2:00 PM Deonna Padilal S, PEDIATRIC NURSE PRACTITIONER * Do you have difficulty dressing or bathing? (5 years old or older) Answer Date of Assessment Author No 10/25/2017 2:00 PM Deonna Padilla S, PEDIATRIC NURSE PRACTITIONER * Because of a physical, mental, or emotional condition, do you have difficulty doing errands alone such as visiting a doctor's office or shopping? (15 years old or older) Answer Date of Assessment Author No 10/25/2017 2:00 PM Deonna Padilla S, PEDIATRIC NURSE PRACTITIONER documented as of this encounter Mental Status * Because of a physical, mental, or emotional condition, do you have serious difficulty concentrating, remembering, or making decisions? (5 years old or older) Answer Entry Date Author No 10/25/2017 2:00 PM Deonna Padilla, PEDIATRIC NURSE PRACTITIONER documented in this encounter Miscellaneous Notes * [...] on filedocumented in this encounter Care Teams Maintenance Service Supervisor Relationship Specialty Start Date End Date Leonard Jasso APRN 1454 [facility] [address] [place] [address] PCP - General Family Medicine 08/15/19 04/30/21 Lacey Perdue MD [address] [address] Referring Physician Infectious Diseases 06/28/18 documented as of this encounter
--- OUTSIDE RECORDS SUMMARY | 2024-11-23 10:18 | XMS_ITS | Encounter Summary ---
Author Organization [employer] Address [address] [place] [address] Care Team Providers Care Presser Cotton Ginning Name Role Phone Lacey Perdue MD Unavailable [phone] Leonard Jasso APRN Primary Care Provide r Reason for Referral * MRI/CAT Scan (Routine) - Closed Specialty Diagnoses / Procedures Referred By Celine almaguer Referred To Contact Radiology Diagnoses Non-healing surgical wound SAPHO syndrome Osteomyelitis Procedures MRI Lower Extremity Joint w wo Contrast Brittani Light MD [facility] [place] [address] Phone: tel: fax: Referral ID Status Reason Start Date Expiration Date Visits Re quested Visits Authorized [id number] Closed 08/18/2019 08/17/2020 1 1 Reason for Visit * MRI/CAT Scan (Routine) - Closed Specialty Diagnoses / Procedures Referred By Celine almaguer Referred To Contact Radiology Diagnoses Send to Patient Access; Order Scanned in-lls;/osteomylitis nonpressure right ankle, will need labs.jdw Procedures MRI LOW EXTR ANY JNT W WO CONT Brittani [place] [address] Phone: tel: fax: [facility] [address] [place] [address] Phone: tel: Referral ID Status Reason Start Date Expiration Date Visits Re quested Visits Authorized [id number] Closed 08/23/2019 08/22/2020 1 1 Encounter Details Date Type Department Care Team (Latest Contact Info) Description 08/23/2019 12:54 PM CDT - 08/23/2019 11:59 PM CDT Hospital Encounter [facility] [address] [place] [address] Non-healing surgical wound; SAPHO syndrome; Osteomyelitis Discharge [...] Author No 10/25/2017 2:00 PM Deonna Padilla, BOTTLE HOUSE QUALITY CONTROL TECHNICIAN * Do you have serious difficulty walking or climbing stairs? (5 years old or older) Answer Date of Assessment Author No 10/25/2017 2:00 PM Deonna Padilla, BOTTLE HOUSE QUALITY CONTROL TECHNICIAN * Do you have difficulty dressing or bathing? (5 years old or older) Answer Date of Assessment Author No 10/25/2017 2:00 PM Deonna Padilla, BOTTLE HOUSE QUALITY CONTROL TECHNICIAN * Because of a physical, [...] PM T: ??08/23/2019 4:27 PM Report ID: [id number] Reading Location: ??[id number] Narrative 08/23/2019 4:27 [place] [address] Patient Name:EDILBERTO DURAND ?Accession Number: [id number] Patient ID Number:[id number] ?Approval Date: 08/23/2019 4:27 PM Date of [...] Procedure Note Kellie Ambrocio MD - 08/23/[address] [place] [address] Patient Name:EDILBERTO DURAND Accession Number: [id number] Patient ID Number:[id number] Approval Date: 08/23/2019 4:27 PM Date of [...] by Kellie Ambrocio M.D. : Report ID: [id number] Reading Location: [place] [address] Brittani Light MD IM MRI ORDERABLES Final [...] mLs documented in this encounter Care Teams Presser Cotton Ginning Relationship Specialty Start Date End Date Leonard Jasso APRN 1454 [facility] [address] [place] [address] PCP - General Family Medicine 08/15/19 04/30/21 Lacey Perdue MD [address] [address] Referring Physician Infectious Diseases 06/28/18 documented as of this encounter
--- OUTSIDE RECORDS SUMMARY | 2024-11-23 10:18 | XMS_ITS | Encounter Summary ---
Author Organization [employer] Address [address] [place] [address] Care Team Providers Care Red Mud Thickener Operator Name Role Phone Lacey Perdue MD Unavailable [phone] Leonard Jasso APRN Primary Care Provide r Patient, None Per Primary Care Provider Unavaila ble Michell Trevizo MD Primary Care Provider [phone] Patient, None Per Primary Care Provider Unavaila ble Jose Manuel Villegas MD Primary Care Provider Patient, None Per Primary Care Provider Unavaila ble Reason for Visit * Reason Onset Date Comments Medication Refill 12/11/2019 Encounter Details Date Type Department Care Team (Late st Contact Info) Description 12/11/2019 Refill [facility] [address] [place], [place] [id number] Maxine Howell, [facility] [address] [facility] [address] [place], [place] [id number] Social History Tobacco Use Types Packs/Day Years [...] of Assessment Author No 10/25/2017 2:00 PM BRANCHER Deonna Galvan y S, DENTAL EQUIPMENT INSTALLER AND SERVICER * Are you blind or do you have serious difficulty seeing, even when wearing glasses? Answer Date of Assessment Author No 10/25/2017 2:00 PM BRANCHER Cole Am y S, DENTAL EQUIPMENT INSTALLER AND SERVICER * Do you have serious difficulty walking or climbing stairs? (5 years old or older) Answer Date of Assessment Author No 10/25/2017 2:00 PM BRANCHER Cole Am y S, DENTAL EQUIPMENT INSTALLER AND SERVICER * Do you have difficulty dressing or bathing? (5 years old or older) Answer Date of Assessment Author No 10/25/2017 2:00 PM JOHN Galvan Am y S, DENTAL EQUIPMENT INSTALLER AND SERVICER * Because of a physical, mental, or emotional condition, do you have difficulty doing errands alone such as visiting a doctor's office or shopping? (15 years old or older) Answer Date of Assessment Author No 10/25/2017 2:00 PM JOHN Galvan Am y S, DENTAL EQUIPMENT INSTALLER AND SERVICER documented as of this encounter Mental Status * Because of a physical, mental, or emotional condition, do you have serious difficulty concentrating, remembering, or making decisions? (5 years old or older) Answer Entry Date Author No 10/25/2017 2:00 PM Deonna Padilla, DENTAL EQUIPMENT INSTALLER AND SERVICER documented in this encounter Miscellaneous Notes * Telephone Encounter - Maxine Howell CMA - 12/12/2019 4:54 PM BRANCHER Patient is just trying to make sure things are ready to go when he gets out of the hospital. He does not currently need them since he is in the hospital. Patient is willing to make an appointment to be seen once discharged so the medication can be refilled per protocol/policy. CHER * Telephone Encounter - Maxine Howell CMA - 12/12/2019 8:24 AM BRANCHER Patient called this morning wondering about the refill. I advised the patient that he will need to be seen in order to get this refilled. Patient states that he is currently in [place] for another surgery. Expected discharge on Wednesday. I advised the patient that once he knows for sure when he willbe released from the hospital to call and set up an appointment to be seen to get this refilled. Natalia aranda voiced understanding and stated that he will call to arrange an appointment when he knows whenhe will be discharged. CHER documented in this encounter Plan of Treatment Not on file documented as of this encounter Goals Goal Patient Goal Type Associated Problems Recent Progress Patient-Stated? Author Blood Pressure < 140/90 Blood Pressure 134/86(2022 2:25 PM CDT) No Leonard Jasso APRN documented as of this encounter Visit Diagnoses Not on filedocumented in this encounter Care Teams Red Mud Thickener Operator Relationship Specialty Start Date End Date Leonard Jasso APRN 1454 [facility] [address] [place] [address] PCP - General Family Medicine 08/15/19 04/30/21 Patient, None Per PCP - General 05/01/21 05/28/21 Michell Trevizo MD [address] [place] [address] PCP - General Internal Medicine 05/29/21 02/25/22 Patient, None Per PCP - General 02/26/22 05/11/22 Jose Manuel Villegas MD [address] [place] [address] PCP - General Apprentice 05/12/22 11/25/22 Patient, None Per PCP - General 03/04/23 Lacey Perdue MD [address] [phone] Referring Physician Infectious Diseases 06/28/18 documented as of this encounter
--- OUTSIDE RECORDS SUMMARY | 2024-11-23 10:18 | XMS_ITS | Encounter Summary ---
Author Organization [employer] Address [address] [place] [address] Care Team Providers Care Collar Feller Name Role Phone Lacey Perdue MD Unavailable Leonard Jasso APRN Primary Care Provide r Reason for Visit * Reason Onset Date Comments results x-ray 08/18/2019 Encounter Details Date Type Department Care Team (Late st Contact Info) Description 08/18/2019 Telephone [facility] [address] [place] [address] Anna Gordillo, CRIMINAL JUSTICE INSTRUCTOR 1454 [facility] [address]50 [place] [address] results x-ray Social History Tobacco [...] Author No 10/25/2017 2:00 PM Deonna Padilla, HAM SMOKER * Are you blind or do you have serious difficulty seeing, even when wearing glasses? Answer Date of Assessment Author No 10/25/2017 2:00 PM Deonna Padilla, HAM SMOKER * Do you have serious difficulty walking or climbing stairs? (5 years old or older) Answer Date of Assessment Author No 10/25/2017 2:00 PM Deonna Padilla S, HAM SMOKER * Do you have difficulty dressing or bathing? (5 years old or older) Answer Date of Assessment Author No 10/25/2017 2:00 PM Deonna Padilla S, HAM SMOKER * Because of a physical, mental, or emotional condition, do you have difficulty doing errands alone such as visiting a doctor's office or shopping? (15 years old or older) Answer Date of Assessment Author No 10/25/2017 2:00 PM Deonna Padilla, HAM SMOKER documented as of this encounter Mental Status * Because of a physical, mental, or emotional condition, do you have serious difficulty concentrating, remembering, or making decisions? (5 years old or older) Answer Entry Date Author No 10/25/2017 2:00 PM Deonna Padilla, HAM SMOKER documented in this encounter Miscellaneous Notes * [...] on filedocumented in this encounter Care Teams Collar Feller Relationship Specialty Start Date End Date Leonard Jasso APRN 1454 [facility] [address] [place] [address] PCP - General Family Medicine 08/15/19 04/30/21 Lacey Perdue MD [address] [phone] Referring Physician Infectious Diseases 06/28/18 documented as of this encounter
--- OUTSIDE RECORDS SUMMARY | 2024-11-23 10:18 | XMS_ITS | Encounter Summary ---
Author Organization [employer] Address [address] [place] [address] Care Team Providers Care Manager Field Name Role Phone Lacey Perdue MD Unavailable [phone] David Concepcion SHOTWELD OPERATOR Primary Care Provide r Reason for Referral * MRI/CAT Scan (Routine) - Closed Specialty Diagnoses / Procedures Referred By Celine almaguer Referred To Contact Radiology Diagnoses Chronic bilateral low back pain with left-sided sciatica Procedures MRI Lumbar Spine wo Contrast David Concepcion, SHOTWELD OPERATOR [address] [place] [address] Phone: tel: fax: Referral ID Status Reason Start Date Expiration Date Visits Re quested Visits Authorized [id number] Closed 08/23/2019 08/22/2020 1 1 Reason for Visit * Reason Comments Ankle Pain right open wound Back Pain chronic Encounter Details Date Type Department Care Team (Late st Contact Info) Description 08/23/2019 10:00 AM CDT Office Visit [place] [address] [place] [address] David Concepcion, SHOTWELD OPERATOR [address] [place] [address] Open wound of ankle with [...] right open wound ??? Back Pain chronic [address] [place] [address] Dept: [phone] Dept Loc: [phone] Loc Date: 08/23/2019 Name: Edilberto Durand : [...] fracture in the lumbar spine. 2. ??Multilevel sfzt-ty-xhqakwpo lumbar spondylotic changes as described. ??No high-grade [...] AM T: ??08/30/2019 9:16 AM Report ID: [id number] Reading Location: ??[id number] Narrative 08/30/2019 9:16 [place] [address] Patient Name:EDILBERTO DURAND ?Accession Number: [id number] Patient ID Number:[id number] ?Approval Date: 08/30/2019 9:16 AM Date of [...] Note Todd De Souza DO - 08/30/[address] [place] [address] Patient Name:EDILBERTO DURAND Accession Number: [id number] Patient ID Number:[id number] Approval Date: 08/30/2019 9:16 AM Date of [...] fracture in the lumbar spine. 2. Multilevel fcup-lu-kgzqxkga lumbar spondylotic changes as described.No high-grade spinal [...] De Souza D.O. AP: ESTEFANÍA Report ID: [id number] Reading Location: [id number] David Concepcion APRN IMG MRI ORDERABLES Fi nal Result documented in this encounter Visit Diagnoses Diagnosis Open wound of ankle with complication, right, subsequent encounter- Primary Chronic bilateral low back pain with left-sided sciatica Gastroesophageal reflux disease without esophagitis Esophageal reflux Chronic bilateral low back pain with left-sided sciatica documented in this encounter Care Teams Manager Field Relationship Specialty Start Date End Date David Concepcion APRN [address] [facility] [address] [place] [address] PCP - General Family Medicine 08/15/19 04/30/21 Lacey Perdue MD [address] [phone] Referring Physician Infectious Diseases 06/28/18 documented as of this encounter
--- OUTSIDE RECORDS SUMMARY | 2024-11-23 10:18 | XMS_ITS | Encounter Summary ---
Author Organization [employer] Address [address] [place] [address] Care Team Providers Care Pressure Control Supervisor Name Role Phone Lacey Perdue MD Unavailable [phone] Leonard Jasso GRADER PATROL Primary Care Provide r Reason for Referral * Referral (Routine) - Closed Specialty Diagnoses / Procedures Referred By Celine almaguer Referred To Contact Urology Diagnoses Solar keratosis Leonard Jasso, GRADER PATROL [address] [place] [address] Phone: tel: fax: Isaac Orta MD [address] [place] [address] Phone: tel: fax: Referral ID Status Reason Start Date Expiration Date V isits Requested Visits Authorized [id number] Closed Specialty Services Required 01/22/2020 01/21/2021 1 1 Reason for Visit * Reason Comments Urinary Incontinence want referral to [place] [facility] Encounter Details Date Type Department Care Team (Late st Contact Info) Description 01/22/2020 3:45 PM CDT Office Visit [facility] [address] [place], [place] [id number] Leonard Jasso, GRADER PATROL [address] [place] [address] 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 [...] Author No 10/25/2017 2:00 PM Deonna Padilla, INSOLE STIFFENER * Because of a physical, mental, or emotional condition, do you have difficulty doing errands alone such as visiting a doctor's office or shopping? (15 years old or older) Answer Date of Assessment Author No 10/25/2017 2:00 PM Deonna Padilla, INSOLE STIFFENER documented as of this encounter Mental Status * Because of a physical, mental, or emotional condition, do you have serious difficulty concentrating, remembering, or making decisions? (5 years old or older) Answer Entry Date Author No 10/25/2017 2:00 PM Deonna Padilla, INSOLE STIFFENER documented in this encounter Patient Instructions * [...] Urinary Incontinence want referral to [place] urologist [address] [address] Dept: [phone] Dept Loc: [phone] Loc Date: 01/22/2020 Name: Edilberto Hawley : [...] than is typically seen. 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
--- OUTSIDE RECORDS SUMMARY | 2024-11-23 10:18 | XMS_ITS | Encounter Summary ---
Author Organization [employer] Address [address] [place] [address] Care Team Providers Care Life Support Technician Name Role Phone Lacey Perdue MD Unavailable [phone] Leonard Jasso APRN Primary Care Provide r Reason for Visit * Reason Onset Date Comments Medication Management 11/02/2019 Encounter Details Date Type Department Care Team (Late st Contact Info) Description 11/02/[address] [address] [facility] 1454 [facility] [address] [place] [address] Medication Management Social History Tobacco [...] Author No 10/25/2017 2:00 PM Deonna Padilla, NATURAL SCIENCES DEPARTMENT CHAIR * Do you have serious difficulty walking or climbing stairs? (5 years old or older) Answer Date of Assessment Author No 10/25/2017 2:00 PM Deonna Padilla, NATURAL SCIENCES DEPARTMENT CHAIR * Do you have difficulty dressing or bathing? (5 years old or older) Answer Date of Assessment Author No 10/25/2017 2:00 PM STOREKEEPER HELPER Deonna Galvan, NATURAL SCIENCES DEPARTMENT CHAIR * Because of a physical, mental, or emotional condition, do you have difficulty doing errands alone such as visiting a doctor's office or shopping? (15 years old or older) Answer Date of Assessment Author No 10/25/2017 2:00 PM STOREKEEPER HELPER Deonna Galvan, NATURAL SCIENCES DEPARTMENT CHAIR documented as of this encounter Mental Status * Because of a physical, mental, or emotional condition, do you have serious difficulty concentrating, remembering, or making decisions? (5 years old or older) Answer Entry Date Author No 10/25/2017 2:00 PM Deonna Padilla, NATURAL SCIENCES DEPARTMENT CHAIR documented in this encounter Miscellaneous Notes * Telephone Encounter - Maxine Howell CMA - 11/06/2019 11:42 AM STOREKEEPER HELPER I have let [facility] know that Dylan is willing to sign orders. They stated that they may not be the ones to administer the home fusion due to issues with finding home health for the patient. But they will send on the information to [facility] who may be the ones to end up doing the home health and home fusion. EKEEPER HELPER * Telephone Encounter - Maxine Howell CMA - 11/02/2019 1:43 PM STOREKEEPER HELPER Danny [facility] Home Infusion called in regards to the patient when he will be discharged from the hospital from his surgery. Pt will be need 6 weeks of IV Vanco for osteomyelitis. Pharmacist will manage lab values if dosage needs changed, they are wanting to know if Dylan would be willing to sign the final orders. Phone number to call back: [phone] EKEEPER HELPER documented in this encounter Plan of Treatment Not on file documented as of this encounter Goals Goal Patient Goal Type Associated Problems Recent Progress Patient-Stated? Author Blood Pressure < 140/90 Blood Pressure 134/86(2022 2:25 PM CDT) No Leonard Jasso APRN documented as of this encounter Visit Diagnoses Not on filedocumented in this encounter Care Teams Life Support Technician Relationship Specialty Start Date End Date Leonard Jasso APRN 1454 [facility] [address] [place] [address] PCP - General Family Medicine 08/15/19 04/30/21 Lacey Perdue MD [address] [phone] Referring Physician Infectious Diseases 06/28/18 documented as of this encounter
--- OUTSIDE RECORDS SUMMARY | 2024-11-23 10:18 | XMS_ITS | Encounter Summary ---
Author Organization [employer] Address [address] [place] [address] Care Team Providers Care Early Head Start Teacher Name Role Phone Lacey Perdue MD Unavailable [phone] Leonard Jasso APRN Primary Care Provide r Reason for Visit * Reason Onset Date Comments Medication Refill 09/25/2019 Encounter Details Date Type Department Care Team (Late st Contact Info) Description 09/25/[address] [address] Zoey Seaman, HORIZONTAL DRILL OPERATOR 1454 [facility] 2050 [place] [address] Medication Refill Social History Tobacco [...] of Assessment Author No 10/25/2017 2:00 PM DELIVERY CREW WORKER Galvan, Am y S, COORDINATOR CARDIOPULMONARY SERVICES * Do you have serious difficulty walking or climbing stairs? (5 years old or older) Answer Date of Assessment Author No 10/25/2017 2:00 PM Deonna Padilla, COORDINATOR CARDIOPULMONARY SERVICES * Do you have difficulty dressing or bathing? (5 years old or older) Answer Date of Assessment Author No 10/25/2017 2:00 PM Deonna Padilla S, COORDINATOR CARDIOPULMONARY SERVICES * Because of a physical, mental, or emotional condition, do you have difficulty doing errands alone such as visiting a doctor's office or shopping? (15 years old or older) Answer Date of Assessment Author No 10/25/2017 2:00 PM Deonna Padilla, COORDINATOR CARDIOPULMONARY SERVICES documented as of this encounter Mental Status * Because of a physical, mental, or emotional condition, do you have serious difficulty concentrating, remembering, or making decisions? (5 years old or older) Answer Entry Date Author No 10/25/2017 2:00 PM Deonna Padilla, COORDINATOR CARDIOPULMONARY SERVICES documented in this encounter Miscellaneous Notes * Telephone Encounter - Zoey Seaman LPN - 09/25/2019 11:35 AM CST ----- Message from Silva Galvan sent at 09/25/2019 10:47 AM DELIVERY CREW WORKER ----- Regarding: Medication Question Romero RE: Medication Question Is the patient active on MyChart: No Phone: Preferred Has the patient called or been called about this issue: This is a first call for this issue. Patient called today stating he went to the pharmacy to pickers material handlers his Cymbalta and the [facility] pharmacy in [place], [place] does not have a script for it. I looked in the patients chart and I did not seeCymbalta listed. Patient stated he would like a call back today at [phone]. VERY CREW WORKER documented in this encounter Plan of Treatment Not on file documented as of this encounter Goals Goal Patient Goal Type Associated Problems Recent Progress Patient-Stated? Author Blood Pressure < 140/90 Blood Pressure 134/86(2022 2:25 PM CDT) No Leonard Jasso APRN documented as of this encounter Visit Diagnoses Not on filedocumented in this encounter Care Teams Early Head Start Teacher Relationship Specialty Start Date End Date Leonard Jasso APRN 1454 [facility] 2049 [place] [address] PCP - General Family Medicine 08/15/19 04/30/21 Lacey Perdue MD [address] [address] Referring Physician Infectious Diseases 06/28/18 documented as of this encounter
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
--- OUTSIDE RECORDS SUMMARY | 2024-11-23 10:18 | XMS_ITS | Encounter Summary ---
Author Organization [employer] Address [address] [place] [address] Care Team Providers Care Tin Can Feeder Name Role Phone Lacey Perdue MD Unavailable [phone] Leonard Jasso APRN Primary Care Provide r Reason for Visit * Reason Comments Back Pain MRI f/u Encounter Details Date Type Department Care Team (Late st Contact Info) Description 09/06/2019 8:45 AM CDT Office Visit [address] [phone] Leonard Jasso, ANGIE [address] [place] [phone] Chronic bilateral low back pain without sciatica [...] Author No 10/25/2017 2:00 PM Deonna Padilla, PULP MILL OPERATOR * Are you blind or do you have serious difficulty seeing, even when wearing glasses? Answer Date of Assessment Author No 10/25/2017 2:00 PM Deonna Padilla, PULP MILL OPERATOR * Do you have serious difficulty walking or climbing stairs? (5 years old or older) Answer Date of Assessment Author No 10/25/2017 2:00 PM Deonna Padilla, PULP MILL OPERATOR * Do you have difficulty dressing or bathing? (5 years old or older) Answer Date of Assessment Author No 10/25/2017 2:00 PM Deonna Padilla, PULP MILL OPERATOR * Because of a physical, mental, or emotional condition, do you have difficulty doing errands alone such as visiting a doctor's office or shopping? (15 years old or older) Answer Date of Assessment Author No 10/25/2017 2:00 PM Deonna Padilla, PULP MILL OPERATOR documented as of this encounter Mental Status * Because of a physical, mental, or emotional condition, do you have serious difficulty concentrating, remembering, or making decisions? (5 years old or older) Answer Entry Date Author No 10/25/2017 2:00 PM Deonna Padilla, PULP MILL OPERATOR documented in this encounter Patient Instructions [...] presents with ??? Back Pain MRI f/u [address] [address] Dept: [phone] Dept Loc: [phone] Loc Date: 09/06/2019 Name: Edilberto Hawley : 1955 PCP: TIFFANI Galeano Subjective: Patient ID: Edilberto Hawley is a 63 y.o. male. Reviewed MRI report with pt during visit. Explained recommendation to see Dr. Gann at [facility] [place]. History provided by: Patient Back [...] claudication documented in this encounter Care Teams Tin Can Feeder Relationship Specialty Start Date End Date Leonard Jasso APRN [address] [place] [address] PCP - General Family Medicine 08/15/19 04/30/21 Lacey Perdue MD [address] [phone] Referring Physician Infectious Diseases 06/28/18 documented as of this encounter
--- OUTSIDE RECORDS SUMMARY | 2024-11-23 10:18 | XMS_ITS | Encounter Summary ---
Author Organization [employer] Address [address] [place] [address] Care Team Providers Care Oil Pit Attendant Name Role Phone Lacey Perdue MD Unavailable [phone] Leonard Jasso APRN Primary Care Provide r Reason for Visit * Reason Onset Date Comments Medication Refill 01/15/2020 Encounter Details Date Type Department Care Team (Late st Contact Info) Description 01/15/2020 Refill [facility] 1370 [place], [place] [phone] Maxine Howell, [facility] 1454 [facility] [address] [place], [place] [address] Social History Tobacco Use Types Packs/Day Years [...] Author No 10/25/2017 2:00 PM Deonna Padilla, SEMICONDUCTOR ENGINEER * Do you have serious difficulty walking or climbing stairs? (5 years old or older) Answer Date of Assessment Author No 10/25/2017 2:00 PM Deonna Padilla, SEMICONDUCTOR ENGINEER * Do you have difficulty dressing or bathing? (5 years old or older) Answer Date of Assessment Author No 10/25/2017 2:00 PM Deonna Padilla, SEMICONDUCTOR ENGINEER * Because of a physical, mental, or emotional condition, do you have difficulty doing errands alone such as visiting a doctor's office or shopping? (15 years old or older) Answer Date of Assessment Author No 10/25/2017 2:00 PM Deonna Padilla, SEMICONDUCTOR ENGINEER documented as of this encounter Mental Status * Because of a physical, mental, or emotional condition, do you have serious difficulty concentrating, remembering, or making decisions? (5 years old or older) Answer Entry Date Author No 10/25/2017 2:00 PM Deonna Padilla, SEMICONDUCTOR ENGINEER documented in this encounter Plan of Treatment Not on file documented as of this encounter Goals Goal Patient Goal Type Associated Problems Recent Progress Patient-Stated? Author Blood Pressure < 140/90 Blood Pressure 134/86(2022 2:25 PM CDT) No Leonard Jasso APRN documented as of this encounter Visit Diagnoses Not on filedocumented in this encounter Care Teams Oil Pit Attendant Relationship Specialty Start Date End Date Leonard Jasso APRN 1454 [facility] 2049 [place] [address] PCP - General Family Medicine 08/15/19 04/30/21 Lacey Predue MD [address] [phone] Referring Physician Infectious Diseases 06/28/18 documented as of this encounter
--- OUTSIDE RECORDS SUMMARY | 2024-11-23 10:18 | XMS_ITS | Encounter Summary ---
Author Organization [employer] Address [address] [place] [address] Care Team Providers Care Glass Cutter Hand Name Role Phone Lacey Perdue MD Unavailable [phone] Leonard Jasso APRN Primary Care Provide r Encounter Details Date Type Department Care Team (Latest Contact Info) Description 02/20/2020 9:05 AM CDT - 02/20/2020 11:59 PM CDT Hospital Encounter [facility] [address] [place] [address] Wound of right lower extremity, [...] Author No 10/25/2017 2:00 PM Deonna Padilla, SALES CLERK FOOD * Are you blind or do you have serious difficulty seeing, even when wearing glasses? Answer Date of Assessment Author No 10/25/2017 2:00 PM Deonna Padilla, SALES CLERK FOOD * Do you have serious difficulty walking or climbing stairs? (5 years old or older) Answer Date of Assessment Author No 10/25/2017 2:00 PM Deonna Padilla, SALES CLERK FOOD * Do you have difficulty dressing or bathing? (5 years old or older) Answer Date of Assessment Author No 10/25/2017 2:00 PM Deonna Padilla, SALES CLERK FOOD * Because of a physical, mental, or emotional condition, do you have difficulty doing errands alone such as visiting a doctor's office or shopping? (15 years old or older) Answer Date of Assessment Author No 10/25/2017 2:00 PM Deonna Padilla, SALES CLERK FOOD documented as of this encounter Mental Status [...] - 4.00 ng/mL 02/20/2020 2:43 PM CDT [facility] Serum specimen (specimen) 02/20/2020 9:05 AM CDT 02/20/2020 1:57 PM CDT us Leonard Jasso APRN LAB BLOOD ORDERABLES Final [facility] [address] 2049 [facility] [address] [place] [address] * T4, free (02/20/2020 9:05 AM CDT) Free T4 0.92 0.76 - 1.46 ng/dL 02/20/2020 2:43 PM T [facility] Serum specimen (specimen) 02/20/2020 9:05 AM CDT 02/20/2020 1:57 PM CDT us Leonard Jasso APRN LAB BLOOD ORDERABLES Final [facility] [address]49 [facility] [address] [place] [address] * TSH (02/20/2020 9:05 AM CDT) TSH 1.99 0.36 - 3.74 m[IU]/L 02/20/2020 2:43 PM CDT [facility] Serum specimen (specimen) BLOOD SPECIMEN / Unknown 02/20/2020 9:05 AM CDT 02/20/2020 1:57 PM CDT us Leonard Jasso APRN LAB BLOOD ORDERABLES Final Result [facility] [address]49 [facility] [address] [place] [address] * (ABNORMAL) Lipid panel (02/20/2020 9:05 AM CDT) Cholesterol 191 0 - 200 mg/dL 02/20/2020 2:43 PM [facility] Triglycerides 246(H) 30 - 150 mg/dL 02/20/2020 2:43 PM [facility] HDL Cholesterol 37(L) 40 - 60 mg/dL 02/20/2020 2:43 PM [facility] LDL, Calculated 105 0 - 130 mg/dL 02/20/2020 2:43 PM [facility] Cholesterol/HDL Ratio 5.2(H) 4 - 5 02/20/2020 2:43 PM [facility] Serum specimen (specimen) 02/20/2020 9:05 AM CDT 02/20/2020 1:57 PM CDT us Leonard Jasso APRN LAB BLOOD ORDERABLES Final Result [facility] [address]49 [facility] [address] [place] [address] * (ABNORMAL) Comprehensive metabolic panel (02/20/2020 9:05 AM CDT) Sodium 143 136 - 145 mmol/L 02/20/2020 2:43 PM [facility] Potassium 4.8 3.5 - 5.1 mmol/L 02/20/2020 2:43 PM [facility] Chloride 105 98 - 107 mmol/L 02/20/2020 2:43 PM [facility] CO2 29 21 - 32 mmol/L 02/20/2020 2:43 PM [facility] Glucose 152(H) 74 - 106 mg/dL 02/20/2020 2:43 PM [facility] BUN 15 7.0 - 18.0 mg/dL 02/20/2020 2:43 PM [facility] Creatinine 1.05 0.70 - 1.30 mg/dL 02/20/2020 2:43 PM [facility] Calcium 9.4 8.5 - 10.1 mg/dL 02/20/2020 2:43 PM [facility] Total Protein 8.2 6.4 - 8.2 g/dL 02/20/2020 2:43 PM [facility] Albumin 4.2 3.4 - 5.0 g/dL 02/20/2020 2:43 PM [facility] Bilirubin Total 0.5 0.2 - 1.0 mg/dL 02/20/2020 2:43 PM [facility] Alkaline Phosphatase 94 56 - 119 U/L 02/20/2020 2:43 PM [facility] AST 49(H) 15 - 37 U/L 02/20/2020 2:43 PM [facility] ALT 73(H) 16 - 63 U/L 02/20/2020 2:43 PM [facility] Anion Gap 9 8 - 16 mmol/L 02/20/2020 2:43 PM [facility] BUN/Creatinine Ratio 14.3 02/20/2020 2:43 PM [facility] Osmolality Calculated 289 285 - 295 mosm/kg 02/20/2020 2:43 PM [facility] Globulin 4.0(H) 2.3 - 3.4 g/dL 02/20/2020 2:43 PM [facility] A/G Ratio 1.1(L) 1.2 - 2.4 02/20/2020 2:43 PM [facility] Creatinine Based eGFR 74 mL/min/[1. 73_m2] 02/20/2020 2:43 PM [facility] Comment:GFR 60-90 Mild decre ased GFR. EGFR /Barbadian 85 mL/min/[1. 73_m2] 02/20/2020 2:43 PM [facility] Comment:GFR 60-90 Mild decre ased GFR. Serum specimen (specimen) 02/20/2020 9:05 AM CDT 02/20/2020 1:57 PM CDT us Leonard Jasso DATA ENTRY MANAGER LAB BLOOD ORDERABLES Final Result [facility] [address] [facility] [address] [place] [address] * CBC and differential (02/20/2020 9:05 AM CDT) WBC 6.91 4.00 - 11.00 10*3/uL 02/20/2020 2:08 PM [facility] RBC 5.58 4.50 - 6.50 10*6/uL 02/20/2020 2:08 PM [facility] HGB 17.0 13.8 - 18.0 g/dL 02/20/2020 2:08 PM [facility] HCT 50.8 40.0 - 54.0 % 02/20/2020 2:08 PM [facility] MCV 91.0 76 - 99 fL 02/20/2020 2:08 PM [facility] MCH 30.5 27.0 - 32.0 pg 02/20/2020 2:08 PM [facility] MCHC 33.5 30.0 - 35.0 g/dL 02/20/2020 2:08 PM [facility] Platelets 216 135 - 470 10*3/uL 02/20/2020 2:08 PM [facility] RDW-CV 12.4 11.0 - 17.0 % 02/20/2020 2:08 PM [facility] MPV 10.3 8.0 - 12.5 fL 02/20/2020 2:08 PM [facility] Differential Type AUTOMATED DIFFERENTIAL 02/20/2020 2:08 PM [facility] Neutrophil % 61.6 45.0 - 75.0 % 02/20/2020 2:08 PM [facility] Lymphocytes % 26.9 20.0 - 45.0 % 02/20/2020 2:08 PM [facility] Monocyte % 8.8 0.0 - 10.0 % 02/20/2020 2:08 PM [facility] Eosinophils Relative % 2.0 0.0 - 5.0 % 02/20/2020 2:08 PM [facility] Basophils % 0.4 0.0 - 2.0 % 02/20/2020 2:08 PM [facility] Immature Granulocytes% 0.3 0.0 - 1.6 % 02/20/2020 2:08 PM [facility] Neutrophils Absolute 4.25 2.00 - 7.90 10*3/uL 02/20/2020 2:08 PM [facility] Lymphocytes Absolute 1.86 1.00 - 4.00 10*3/uL 02/20/2020 2:08 PM [facility] Monos Absolute 0.61 0.00 - 0.80 10*3/uL 02/20/2020 2:08 PM [facility] Eosinophils Absolute Count 0.14 0.00 - 0.40 10*3/uL 02/20/2020 2:08 PM [facility] Basophils Absolute 0.03 0.00 - 0.10 10*3/uL 02/20/2020 2:08 PM [facility] Immature Granulocytes Absolute 0.02 0.0 - 0.20 10*3/uL 02/20/2020 2:08 PM [facility] Serum specimen (specimen) 02/20/2020 9:05 AM CDT 02/20/2020 1:57 PM [facility] Leonard Jasso DATA ENTRY MANAGER LAB BLOOD ORDERABLES Final Result [facility] [address] [facility] [address] [place] [address] documented in this encounter Visit Diagnoses Diagnosis Wound of right lower extremity, subsequent encounter Screening for cardiovascular condition Screening for other and unspecified cardiovascular conditions Screening for thyroid disorder Benign prostatic hyperplasia with incomplete bladder emptying documented in this encounter Care Teams Glass Cutter Hand Relationship Specialty Start Date End Date Leonard Jasso APRN 1454 [facility] [address] [place] [address] PCP - General Family Medicine 08/15/19 04/30/21 Lacey Perdue MD [address] [phone] Referring Physician Infectious Diseases 06/28/18 documented as of this encounter
--- OUTSIDE RECORDS SUMMARY | 2024-11-23 10:18 | XMS_ITS | Encounter Summary ---
Author Organization [employer] Address [address] [place] [address] Care Team Providers Care Deliver Driver Name Role Phone Denny Dey DO Unavailable [phone] Lacey Perdue MD Unavailable [phone] Leonard Jasso APRN Primary Care Provide r Reason for Visit * Reason Onset Date Comments reminder 06/12/2019 LS xray Encounter Details Date Type Department Care Team (Late st Contact Info) Description 06/12/[address] [address] Zoey Seaman, CONTENT ARCHITECT 1454 [facility] 2050 [place] [address] reminder (LS xray ) Social [...] No 10/25/2017 2:00 PM Deonna Padilla, SOFTWARE CONFIGURATION ENGINEER * Do you have serious difficulty walking or climbing stairs? (5 years old or older) Answer Date of Assessment Author No 10/25/2017 2:00 PM Deonna Padilla, SOFTWARE CONFIGURATION ENGINEER * Do you have difficulty dressing or bathing? (5 years old or older) Answer Date of Assessment Author No 10/25/2017 2:00 PM Deonna Padilla, SOFTWARE CONFIGURATION ENGINEER * Because of a physical, mental, [...] on filedocumented in this encounter Care Teams Deliver Driver Relationship Specialty Start Date End Date Leonard Jasso APRN [address] [place] [address] PCP - General Family Medicine 11/25/18 08/14/19 Denny Dey DO Referring Physician Orthopedic Surgery 06/28/18 9 Lacey Perdue MD [address] [phone] Referring Physician Infectious Diseases 06/28/18 documented as of this encounter
--- OUTSIDE RECORDS SUMMARY | 2024-11-23 10:18 | XMS_ITS | Encounter Summary ---
Author Organization [employer] Address [address] [place] [address] Care Team Providers Care Associate Buyer Name Role Phone Denny Dey DO Unavailable [phone] Lacey Perdue MD Unavailable Leonard Jasso APRN Primary Care Provide r Reason for Visit * Reason Onset Date Comments Medication Refill 06/30/2019 Encounter Details Date Type Department Care Team (Late st Contact Info) Description 06/30/2019 Refill [facility] [address] [place], [place] [phone] Zoey Seaman, CUT TO LENGTH OPERATOR 1454 [facility] 2050 [place], [place] [phone] Social History Tobacco Use Types Packs/Day Years [...] Author No 10/25/2017 2:00 PM Deonna Padilla, ROAD GANG SUPERVISOR * Do you have serious difficulty walking or climbing stairs? (5 years old or older) Answer Date of Assessment Author No 10/25/2017 2:00 PM Deonna Padilla, ROAD GANG SUPERVISOR * Do you have difficulty dressing or bathing? (5 years old or older) Answer Date of Assessment Author No 10/25/2017 2:00 PM Deonna Padilla, ROAD GANG SUPERVISOR * Because of a physical, mental, [...] very pleased with the wound clinic in [place]. He is also requesting his refill of Oxycodone that will run out on Wednesday07/02/19. He also inquired if his order is still at the hospital for his back Xray as he wants to complete that. He can be reached at [phone]. Thank you Yani S documented in this encounter Plan of Treatment Not on file documented as of this encounter Goals Goal Patient Goal Type Associated Problems Recent Progress Patient-Stated? Author Blood Pressure < 140/90 Blood Pressure 134/86(2022 2:25 PM CDT) No Leonard Jasso APRN documented as of this encounter Visit Diagnoses Not on filedocumented in this encounter Care Teams Associate Buyer Relationship Specialty Start Date End Date Leonard Jasso APRN [address] [place] [address] PCP - General Family Medicine 11/25/18 08/14/19 Denny Dey DO Referring Physician Orthopedic Surgery 06/28/18 9 Lacey Perdue MD [address] [phone] Referring Physician Infectious Diseases 06/28/18 documented as of this encounter
--- OUTSIDE RECORDS SUMMARY | 2024-11-23 10:18 | XMS_ITS | Encounter Summary ---
Author Organization [employer] Address [address] [place] [address] Care Team Providers Care Transit Mechanic Name Role Phone Lacey Perdue MD Unavailable [phone] Lenoard Jasso APRN Primary Care Provide r Encounter Details Date Type Department Care Team (Late st Contact Info) Description 02/26/[address] [facility] [address] [place] [address] Zoey Seaman, QUALITY CONTROL ENGINEERING TECHNICIAN 1454 [facility] 2050 [place] [address] Chronic bilateral low back pain [...] Assessment Author No 10/25/2017 2:00 PM IT APPLICATION SUPPORT ANALYST Deonna Galvan, DIESEL TRAILER MECHANIC * Are you blind or do you have serious difficulty seeing, even when wearing glasses? Answer Date of Assessment Author No 10/25/2017 2:00 PM Deonna Padilla, DIESEL TRAILER MECHANIC * Do you have serious difficulty walking or climbing stairs? (5 years old or older) Answer Date of Assessment Author No 10/25/2017 2:00 PM Deonna Padilla S, DIESEL TRAILER MECHANIC * Do you have difficulty dressing or bathing? (5 years old or older) Answer Date of Assessment Author No 10/25/2017 2:00 PM Deonna Padilla, DIESEL TRAILER MECHANIC * Because of a physical, mental, or emotional condition, do you have difficulty doing errands alone such as visiting a doctor's office or shopping? (15 years old or older) Answer Date of Assessment Author No 10/25/2017 2:00 PM Deonna Padilla, DIESEL TRAILER MECHANIC documented as of this encounter Mental Status * Because of a physical, mental, or emotional condition, do you have serious difficulty concentrating, remembering, or making decisions? (5 years old or older) Answer Entry Date Author No 10/25/2017 2:00 PM Deonna Padilla, DIESEL TRAILER MECHANIC documented in this encounter Plan of [...] Screen (02/20/2020) Urine specimen (specimen) 02/20/2020 Narrative [facility] - 02/26/2020 8:38 AM CDT See scanned image. us Leonard Jasso APRN URINE ORDERABLES Veronica l Result [facility] [address] [place], [place] documented in this encounter Visit Diagnoses Diagnosis Chronic bilateral low back pain without sciatica documented in this encounter Care Teams Transit Mechanic Relationship Specialty Start Date End Date Leonard Jasso APRN [address] [facility] [address] [place] [address] PCP - General Family Medicine 08/15/19 04/30/21 Lacey Perdue MD [address] [address] Referring Physician Infectious Diseases 06/28/18 documented as of this encounter
--- OUTSIDE RECORDS SUMMARY | 2024-11-23 10:18 | XMS_ITS | Encounter Summary ---
Author Organization [employer] Address [address] [place] [address] Care Team Providers Care Organ Fixer Name Role Phone Lacey Perdue MD Unavailable [phone] Leonard Jasso APRN Primary Care Provide r Reason for Visit * Reason Onset Date Comments Medication Refill 10/04/2019 Encounter Details Date Type Department Care Team (Late st Contact Info) Description 10/04/[address] [facility] [address] [place] [address] Zoey Seaman, PASTE MIXER 1454 [facility] 2050 [place] [address] Social History Tobacco Use Types [...] of Assessment Author No 10/25/2017 2:00 PM ELECTRIC MOTOR TESTER Galvan, Am y S, PRACTICE REPRESENTATIVE * Do you have serious difficulty walking or climbing stairs? (5 years old or older) Answer Date of Assessment Author No 10/25/2017 2:00 PM Deonna Padilla, PRACTICE REPRESENTATIVE * Do you have difficulty dressing or bathing? (5 years old or older) Answer Date of Assessment Author No 10/25/2017 2:00 PM Deonna Padilla S, PRACTICE REPRESENTATIVE * Because of a physical, mental, or emotional condition, do you have difficulty doing errands alone such as visiting a doctor's office or shopping? (15 years old or older) Answer Date of Assessment Author No 10/25/2017 2:00 PM Deonna Padilla S, PRACTICE REPRESENTATIVE documented as of this encounter Mental Status * Because of a physical, mental, or emotional condition, do you have serious difficulty concentrating, remembering, or making decisions? (5 years old or older) Answer Entry Date Author No 10/25/2017 2:00 PM Deonna Padilla, PRACTICE REPRESENTATIVE documented in this encounter Plan of Treatment Not on file documented as of this encounter Goals Goal Patient Goal Type Associated Problems Recent Progress Patient-Stated? Author Blood Pressure < 140/90 Blood Pressure 134/86(2022 2:25 PM CDT) No Leonard Jasso APRN documented as of this encounter Visit Diagnoses Not on filedocumented in this encounter Care Teams Organ Fixer Relationship Specialty Start Date End Date Leonard Jasso APRN 1454 [facility] [address] [place] [address] PCP - General Family Medicine 08/15/19 04/30/21 Lacey Perdue MD [address] [address] Referring Physician Infectious Diseases 06/28/18 documented as of this encounter
--- OUTSIDE RECORDS SUMMARY | 2024-11-23 10:18 | XMS_ITS | Encounter Summary ---
Author Organization [employer] Address [address] [place] [address] Care Team Providers Care Balance Bridge Inspector Name Role Phone Lacey Perdue MD Unavailable [phone] Leonard Jasso APRN Primary Care Provide r Reason for Visit * Reason Onset Date Comments Medication Refill 08/31/2019 Encounter Details Date Type Department Care Team (Late st Contact Info) Description 08/31/2019 Refill [facility] [address] [place] [address] Anna Gordillo, CORRECTIONAL FACILITY NURSE 1454 [facility] [address]50 [place] [address] Social History Tobacco Use Types [...] of Assessment Author No 10/25/2017 2:00 PM PARK SERVICES SPECIALIST Galvan, Am y S, ECONOMIC RESEARCH ANALYST * Do you have serious difficulty walking or climbing stairs? (5 years old or older) Answer Date of Assessment Author No 10/25/2017 2:00 PM Deonna Padilla, ECONOMIC RESEARCH ANALYST * Do you have difficulty dressing or bathing? (5 years old or older) Answer Date of Assessment Author No 10/25/2017 2:00 PM Deonna Padilla S, ECONOMIC RESEARCH ANALYST * Because of a physical, mental, or emotional condition, do you have difficulty doing errands alone such as visiting a doctor's office or shopping? (15 years old or older) Answer Date of Assessment Author No 10/25/2017 2:00 PM Deonna Padilla S, ECONOMIC RESEARCH ANALYST documented as of this encounter Mental Status * Because of a physical, mental, or emotional condition, do you have serious difficulty concentrating, remembering, or making decisions? (5 years old or older) Answer Entry Date Author No 10/25/2017 2:00 PM Deonna Padilla, ECONOMIC RESEARCH ANALYST documented in this encounter Plan of Treatment Not on file documented as of this encounter Goals Goal Patient Goal Type Associated Problems Recent Progress Patient-Stated? Author Blood Pressure < 140/90 Blood Pressure 134/86(2022 2:25 PM CDT) No Leonard Jasso APRN documented as of this encounter Visit Diagnoses Not on filedocumented in this encounter Care Teams Balance Bridge Inspector Relationship Specialty Start Date End Date Leonard Jasso APRN 1454 [facility] [address] [place] [address] PCP - General Family Medicine 08/15/19 04/30/21 Lacey Perdue MD [address] [address] Referring Physician Infectious Diseases 06/28/18 documented as of this encounter
--- OUTSIDE RECORDS SUMMARY | 2024-11-23 10:18 | XMS_ITS | Encounter Summary ---
Author Organization [employer] Address [address] [place] [address] Care Team Providers Care Unit Receptionist Name Role Phone Lacey Perdue MD Unavailable [phone] Leonard Jasso APRN Primary Care Provide r Reason for Visit * Reason Comments Medication Refill Encounter Details Date Type Department Care Team (Late st Contact Info) Description 04/10/[address] [address] Leonard Jasso, ANGIE [address] [place] [address] Social History Tobacco Use Types Packs/Day [...] Author No 10/25/2017 2:00 PM Deonna Padilla, DEPUTY DIRECTOR OF FINANCE * Are you blind or do you have serious difficulty seeing, even when wearing glasses? Answer Date of Assessment Author No 10/25/2017 2:00 PM Deonna Padilla, DEPUTY DIRECTOR OF FINANCE * Do you have serious difficulty walking or climbing stairs? (5 years old or older) Answer Date of Assessment Author No 10/25/2017 2:00 PM Deonna Padilla, DEPUTY DIRECTOR OF FINANCE * Do you have difficulty dressing or bathing? (5 years old or older) Answer Date of Assessment Author No 10/25/2017 2:00 PM Deonna Padilla, DEPUTY DIRECTOR OF FINANCE * Because of a physical, mental, or emotional condition, do you have difficulty doing errands alone such as visiting a doctor's office or shopping? (15 years old or older) Answer Date of Assessment Author No 10/25/2017 2:00 PM Deonna Padilla, DEPUTY DIRECTOR OF FINANCE documented as of this encounter Mental Status [...] on filedocumented in this encounter Care Teams Unit Receptionist Relationship Specialty Start Date End Date Leonard Jasso APRN 1454 [facility] 2049 [place] [address] PCP - General Family Medicine 08/15/19 04/30/21 Lacey Perdue MD [address] [address] Referring Physician Infectious Diseases 06/28/18 documented as of this encounter
--- OUTSIDE RECORDS SUMMARY | 2024-11-23 10:18 | XMS_ITS | Encounter Summary ---
Author Organization [employer] Address [address] [place] [address] Care Team Providers Care County Home Demonstration Agent Name Role Phone Lacey Perdue MD Unavailable [phone] Leonard Jasso APRN Primary Care Provide r Reason for Visit * Reason Comments Medication Refill Encounter Details Date Type Department Care Team (Late st Contact Info) Description 01/15/[address] [address] Leonard Jasso, ANGIE [address] [place] [address] Social History Tobacco Use Types Packs/Day [...] No 10/25/2017 2:00 PM Deonna Padilla, PATIENT ACCESS * Are you blind or do you have serious difficulty seeing, even when wearing glasses? Answer Date of Assessment Author No 10/25/2017 2:00 PM Deonna Padilla, PATIENT ACCESS * Do you have serious difficulty walking or climbing stairs? (5 years old or older) Answer Date of Assessment Author No 10/25/2017 2:00 PM Deonna Padilla, PATIENT ACCESS * Do you have difficulty dressing or bathing? (5 years old or older) Answer Date of Assessment Author No 10/25/2017 2:00 PM Deonna Padilla, PATIENT ACCESS * Because of a physical, mental, or emotional condition, do you have difficulty doing errands alone such as visiting a doctor's office or shopping? (15 years old or older) Answer Date of Assessment Author No 10/25/2017 2:00 PM Deonna Padilla, PATIENT ACCESS documented as of this encounter Mental Status [...] on filedocumented in this encounter Care Teams County Home Demonstration Agent Relationship Specialty Start Date End Date Leonard Jasso APRN 1454 [facility] [address] [place] [address] PCP - General Family Medicine 08/15/19 04/30/21 Lacey Perdue MD [address] [address] Referring Physician Infectious Diseases 06/28/18 documented as of this encounter
--- OUTSIDE RECORDS SUMMARY | 2024-11-23 10:18 | XMS_ITS | Encounter Summary ---
Author Organization [employer] Address [address] [place] [address] Care Team Providers Care Digital Technician Name Role Phone Denny Dey DO Unavailable [phone] Lacey Perdue MD Unavailable Leonard Jasso APRN Primary Care Provide r Reason for Visit * Reason Onset Date Comments Medication Refill 07/28/2019 Encounter Details Date Type Department Care Team (Late st Contact Info) Description 07/28/2019 Refill [facility] [address] [place], [place] [address] Anna Gordillo, ELEMENT SETTER 1454 [facility] 2050 [place], [place] [address] Social History Tobacco Use Types Packs/Day Years [...] Assessment Author No 10/25/2017 2:00 PM SUPERVISOR FINISHING DEPARTMENT Deonna Galvan, GEORGE * Are you blind or do you have serious difficulty seeing, even when wearing glasses? Answer Date of Assessment Author No 10/25/2017 2:00 PM Deonna Padilla, TUBE MOLDER FIBERGLASS * Do you have serious difficulty walking or climbing stairs? (5 years old or older) Answer Date of Assessment Author No 10/25/2017 2:00 PM Deonna Padilla, TUBE MOLDER FIBERGLASS * Do you have difficulty dressing or bathing? (5 years old or older) Answer Date of Assessment Author No 10/25/2017 2:00 PM Deonna Padilla, TUBE MOLDER FIBERGLASS * Because of a physical, mental, or [...] on filedocumented in this encounter Care Teams Digital Technician Relationship Specialty Start Date End Date Leonard Jasso APRN [address] [place] [address] PCP - General Family Medicine 11/25/18 08/14/19 Denny Dey DO Referring Physician Orthopedic Surgery 06/28/18 9 Lacey Perdue MD [address] [address] Referring Physician Infectious Diseases 06/28/18 documented as of this encounter
--- OUTSIDE RECORDS SUMMARY | 2024-11-23 10:18 | XMS_ITS | Encounter Summary ---
Author Organization [employer] Address [address] [place] [address] Care Team Providers Care Professor Of Biochemistry Name Role Phone Lacey Perdue MD Unavailable [phone] David Concepcion APRN Primary Care Provide r Encounter Details Date Type Department Care Team (Latest Contact Info) Description 08/16/2019 3:45 PM CDT - 08/16/2019 11:59 PM CDT Hospital Encounter [facility] General Radiology [address] [place] [id number] Chronic bilateral low back pain without sciatica [...] AM T: ??08/18/2019 8:54 AM Report ID: [id number] Reading Location: ??[id number] Narrative 08/18/2019 8:54 AM CDT [address] [place] [address] Patient Name:EDILBERTO DURAND ?Accession Number: [id number] Patient ID Number:[id number] ?Approval Date: 08/18/2019 8:54 AM Date of [...] comparison examinations are available to assess for frame changer time.Bilateral facet arthropathy identified at the L4-5 and L5-S1 level. DISCS: Disc space narrowing with endplate hypertrophic change identified at the L2-3 level as well as the L4-5 and L5-S1 level. Procedure Note Dwain Mosqueda, - 08/18/[address] [place] [address] Patient Name:EDILBERTO DURAND Accession Number: [id number] Patient ID Number:[id number] Approval Date: 08/18/2019 8:54 AM Date of [...] No comparison examinations are available to assessfor frame changer time.Bilateral facet arthropathy identified at the [...] Dwain Mosqueda D.O. BW: OVIDIO Report ID: [id number] Reading Location: [place] [address] David Concepcion APRN IMG DIAGNOSTIC IMAGIN G ORDERABLES Final Result documented in this encounter Visit Diagnoses Diagnosis Chronic bilateral low back pain without sciatica documented in this encounter Care Teams Professor Of Biochemistry Relationship Specialty Start Date End Date David Concepcion APRN 1454 [facility] [address] [place] [address] PCP - General Family Medicine 08/15/19 04/30/21 Lacey Perdue MD [address] [address] Referring Physician Infectious Diseases 06/28/18 documented as of this encounter
--- OUTSIDE RECORDS SUMMARY | 2024-11-23 10:18 | XMS_ITS | Encounter Summary ---
Author Organization [employer] Address [address] [place] [address] Care Team Providers Care Network Engineer Administrator Name Role Phone Lacey Perdue MD Unavailable [phone] Leonard Jasso APRN Primary Care Provide r Reason for Visit * Reason Onset Date Comments Medication Refill 02/14/2020 Encounter Details Date Type Department Care Team (Late st Contact Info) Description 02/14/[address] [facility] [address] [place], [place] [id number] Maxine Howell, [facility] 1454 [facility] [address] [place], [place] [address] Social History Tobacco Use Types Packs/Day Years [...] Author No 10/25/2017 2:00 PM Deonna Padilla, FOLDER OPERATOR * Do you have serious difficulty walking or climbing stairs? (5 years old or older) Answer Date of Assessment Author No 10/25/2017 2:00 PM Deonna Padilla, FOLDER OPERATOR * Do you have difficulty dressing or bathing? (5 years old or older) Answer Date of Assessment Author No 10/25/2017 2:00 PM Deonna Padilla, FOLDER OPERATOR * Because of a physical, mental, or emotional condition, do you have difficulty doing errands alone such as visiting a doctor's office or shopping? (15 years old or older) Answer Date of Assessment Author No 10/25/2017 2:00 PM Deonna Padilla, FOLDER OPERATOR documented as of this encounter Mental Status * Because of a physical, mental, or emotional condition, do you have serious difficulty concentrating, remembering, or making decisions? (5 years old or older) Answer Entry Date Author No 10/25/2017 2:00 PM Deonna Padilla, FOLDER OPERATOR documented in this encounter Plan of Treatment Not on file documented as of this encounter Goals Goal Patient Goal Type Associated Problems Recent Progress Patient-Stated? Author Blood Pressure < 140/90 Blood Pressure 134/86(2022 2:25 PM CDT) No Leonard Jasso APRN documented as of this encounter Visit Diagnoses Not on filedocumented in this encounter Care Teams Network Engineer Administrator Relationship Specialty Start Date End Date Leonard Jasso APRN 1454 [facility] [address] [place] [address] PCP - General Family Medicine 08/15/19 04/30/21 Lacey Perdue MD [address] [address] Referring Physician Infectious Diseases 06/28/18 documented as of this encounter
--- OUTSIDE RECORDS SUMMARY | 2024-11-23 10:18 | XMS_ITS | Encounter Summary ---
Author Organization [employer] Address [address] [place] [address] Care Team Providers Care Rainbow Trout Farm Manager Name Role Phone Lacey Perdue MD Unavailable [phone] Leonard Jasso APRN Primary Care Provide r Encounter Details Date Type Department Care Team (Latest Contact Info) Description 08/23/2019 Transcribe Orders [facility] [address] [place] [address] [address] [place] [phone] Merna Bradley, [address] [place] [address] SAPHO syndrome (Primary Dx) Social [...] of Assessment Author No 10/25/2017 2:00 PM INSERT OPERATOR Galvan, A my S, CHEMICAL PROCESS ENGINEER * Do you have serious difficulty walking or climbing stairs? (5 years old or older) Answer Date of Assessment Author No 10/25/2017 2:00 PM Deonna Padilla S, CHEMICAL PROCESS ENGINEER * Do you have difficulty dressing or bathing? (5 years old or older) Answer Date of Assessment Author No 10/25/2017 2:00 PM JOHN Galvan Am y S, CHEMICAL PROCESS ENGINEER * Because of a physical, mental, or emotional condition, do you have difficulty doing errands alone such as visiting a doctor's office or shopping? (15 years old or older) Answer Date of Assessment Author No 10/25/2017 2:00 PM JOHN Galvan Am y S, CHEMICAL PROCESS ENGINEER documented as of this encounter Mental Status * Because of a physical, mental, or emotional condition, do you have serious difficulty concentrating, remembering, or making decisions? (5 years old or older) Answer Entry Date Author No 10/25/2017 2:00 PM Deonna Padilla S, CHEMICAL PROCESS ENGINEER documented in this encounter Plan of Treatment Not on file documented as of this encounter Goals Goal Patient Goal Type Associated Problems Recent Progress Patient-Stated? Author Blood Pressure < 140/90 Blood Pressure 134/86(2022 2:25 PM CDT) No Leonard Jasso APRN documented as of this encounter Results * Creatinine, Blood (08/23/2019 12:50 PM CDT) Creatinine 1.02 0.70 - 1.30 mg/dL 08/23/2019 1:26 PM [facility] Creatinine Based eGFR >60 08/23/2019 1:26 PM [facility] Comment: GFR REFERENCE RANGE: >60 mL/min/1.73m2 -- An eGFR of > than, or = to 60, may indicate normal renal function or mildly decreased GFR. EGFR /Karla n >60 08/23/2019 1:26 PM [facility] Comment: -- An eGFR of > than, or = to 60, may indicate normal renal function or mildly decreased GFR. 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
--- OUTSIDE RECORDS SUMMARY | 2024-11-23 10:18 | XMS_ITS | Encounter Summary ---
Author Organization [employer] Address [address] [place] [address] Care Team Providers Care Plexiglas Former Name Role Phone Lacey Perdue MD Unavailable [phone] Leonard Jasso APRN Primary Care Provide r Reason for Visit * Reason Comments Medication Refill Encounter Details Date Type Department Care Team (Late st Contact Info) Description 02/14/[address] [address] Leonard aJsso, ANGIE [address] [place] [address] Social History Tobacco Use Types Packs/Day [...] of Assessment Author No 10/25/2017 2:00 PM FARM EQUIPMENT OPERATOR Galvan, Am y S, DIRECTOR BUSINESS MANAGEMENT * Are you blind or do you have serious difficulty seeing, even when wearing glasses? Answer Date of Assessment Author No 10/25/2017 2:00 PM FARM EQUIPMENT OPERATOR Galvan, Am y S, DIRECTOR BUSINESS MANAGEMENT * Do you have serious difficulty walking or climbing stairs? (5 years old or older) Answer Date of Assessment Author No 10/25/2017 2:00 PM FARM EQUIPMENT OPERATOR Galvan, Am y S, DIRECTOR BUSINESS MANAGEMENT * Do you have difficulty dressing or bathing? (5 years old or older) Answer Date of Assessment Author No 10/25/2017 2:00 PM FARM EQUIPMENT OPERATOR Galvan, Am y S, DIRECTOR BUSINESS MANAGEMENT * Because of a physical, mental, or emotional condition, do you have difficulty doing errands alone such as visiting a doctor's office or shopping? (15 years old or older) Answer Date of Assessment Author No 10/25/2017 2:00 PM FARM EQUIPMENT OPERATOR Galvan, Am y S, DIRECTOR BUSINESS MANAGEMENT documented as of this encounter Mental Status * Because of a physical, mental, or emotional condition, do you have serious difficulty concentrating, remembering, or making decisions? (5 years old or older) Answer Entry Date Author No 10/25/2017 2:00 PM FARM EQUIPMENT OPERATOR Galvan, Am y S, DIRECTOR BUSINESS MANAGEMENT documented in this encounter Plan of Treatment Not on file documented as of this encounter Goals Goal Patient Goal Type Associated Problems Recent Progress Patient-Stated? Author Blood Pressure < 140/90 Blood Pressure 134/86(2022 2:25 PM CDT) No Leonard Jasso APRN documented as of this encounter Visit Diagnoses Not on filedocumented in this encounter Care Teams Plexiglas Former Relationship Specialty Start Date End Date Leonard Jasso APRN 1454 [facility] [address] [place] [address] PCP - General Family Medicine 08/15/19 04/30/21 Lacey Perdue MD [address] [phone] Referring Physician Infectious Diseases 06/28/18 documented as of this encounter
--- OUTSIDE RECORDS SUMMARY | 2024-11-23 10:18 | XMS_ITS | Encounter Summary ---
Author Organization [employer] Address [address] [place] [address] Care Team Providers Care Batch Still Operator Name Role Phone Lacey Perdue MD Unavailable [phone] Leonard Jasso APRN Primary Care Provide r Reason for Visit * Reason Onset Date Comments Medication Management 11/06/2019 Encounter Details Date Type Department Care Team (Late st Contact Info) Description 11/06/[address] [address] [facility] 1454 [facility] 2050 [place] [address] Medication Management Social History Tobacco [...] Author No 10/25/2017 2:00 PM Deonna Padilla, CLINICAL RESEARCH TECHNICIAN * Do you have serious difficulty walking or climbing stairs? (5 years old or older) Answer Date of Assessment Author No 10/25/2017 2:00 PM SCHOOL SUPERVISOR Deonna Galvan, CLINICAL RESEARCH TECHNICIAN * Do you have difficulty dressing or bathing? (5 years old or older) Answer Date of Assessment Author No 10/25/2017 2:00 PM SCHOOL SUPERVISOR Deonna Galvan, CLINICAL RESEARCH TECHNICIAN * Because of a physical, mental, or emotional condition, do you have difficulty doing errands alone such as visiting a doctor's office or shopping? (15 years old or older) Answer Date of Assessment Author No 10/25/2017 2:00 PM SCHOOL SUPERVISOR Deonna Galvan, CLINICAL RESEARCH TECHNICIAN documented as of this encounter Mental Status * Because of a physical, mental, or emotional condition, do you have serious difficulty concentrating, remembering, or making decisions? (5 years old or older) Answer Entry Date Author No 10/25/2017 2:00 PM SCHOOL SUPERVISOR Deonna Galvan, CLINICAL RESEARCH TECHNICIAN documented in this encounter Miscellaneous Notes * Telephone Encounter - Maxine Howell CMA - 11/06/2019 4:44 PM SCHOOL SUPERVISOR [facility] called to inform that patient will [...] be drawn on Wednesday11/13/19. Return phone number: [phone] OL SUPERVISOR documented in this encounter Plan of Treatment Not on file documented as of this encounter Goals Goal Patient Goal Type Associated Problems Recent Progress Patient-Stated? Author Blood Pressure < 140/90 Blood Pressure 134/86(2022 2:25 PM CDT) No Leonard Jasso APRN documented as of this encounter Visit Diagnoses Not on filedocumented in this encounter Care Teams Batch Still Operator Relationship Specialty Start Date End Date Leonard Jasso APRN 1454 [facility] 2049 [place] [address] PCP - General Family Medicine 08/15/19 04/30/21 Lacey Perdue MD [address] [phone] Referring Physician Infectious Diseases 06/28/18 documented as of this encounter
--- OUTSIDE RECORDS SUMMARY | 2024-11-23 10:18 | XMS_ITS | Encounter Summary ---
Author Organization [employer] Address [address] [place] [address] Care Team Providers Care Centerpuncher Name Role Phone Lacey Perdue MD Unavailable [phone] Leonard Jasso APRN Primary Care Provide r Reason for Visit * Reason Onset Date Comments Results 02/21/2020 lipid CMP CBC TS H T4 PSA Encounter Details Date Type Department Care Team (Late st Contact Info) Description 02/21/[address] [address] Zoey Saeman, [place] 1454 [facility] 2050 [place] [address] Results (lipid CMP CBC TSH [...] of Assessment Author No 10/25/2017 2:00 PM FREELANCE DIRECTOR Galvan, Am y S, MACHINE RUG CLEANER * Are you blind or do you have serious difficulty seeing, even when wearing glasses? Answer Date of Assessment Author No 10/25/2017 2:00 PM FREELANCE DIRECTOR Galvan, Am y S, MACHINE RUG CLEANER * Do you have serious difficulty walking or climbing stairs? (5 years old or older) Answer Date of Assessment Author No 10/25/2017 2:00 PM FREELANCE DIRECTOR Galvan, Am y S, MACHINE RUG CLEANER * Do you have difficulty dressing or bathing? (5 years old or older) Answer Date of Assessment Author No 10/25/2017 2:00 PM FREELANCE DIRECTOR Galvan, Am y S, MACHINE RUG CLEANER * Because of a physical, mental, or emotional condition, do you have difficulty doing errands alone such as visiting a doctor's office or shopping? (15 years old or older) Answer Date of Assessment Author No 10/25/2017 2:00 PM FREELANCE DIRECTOR Galvan, Am y S, MACHINE RUG CLEANER documented as of this encounter Mental Status * Because of a physical, mental, or emotional condition, do you have serious difficulty concentrating, remembering, or making decisions? (5 years old or older) Answer Entry Date Author No 10/25/2017 2:00 PM FREELANCE DIRECTOR Galvan, Am y S, MACHINE RUG CLEANER documented in this encounter Miscellaneous Notes * [...] hyperglyceridemia documented in this encounter Care Teams Centerpuncher Relationship Specialty Start Date End Date Leonard Jasso APRN 1454 [facility] [address] [place] [address] PCP - General Family Medicine 08/15/19 04/30/21 Lacey Perdue MD [address] [address] Referring Physician Infectious Diseases 06/28/18 documented as of this encounter
--- OUTSIDE RECORDS SUMMARY | 2024-11-23 10:18 | XMS_ITS | Encounter Summary ---
Author Organization [employer] Address [address] [place] [address] Care Team Providers Care Biomedical Field Service Engineer Name Role Phone Lacey Perdue MD Unavailable [phone] Leonard Jasso APRN Primary Care Provide r Reason for Visit * Reason Comments Urinary Incontinence urology referral in March Encounter Details Date Type Department Care Team (Late st Contact Info) Description 02/20/2020 8:15 AM CDT Office Visit [address] [id number] Leonard Jasso APRN [facility] [place], [place] [address] Chronic bilateral low back pain without sciatica [...] in March for follow up due to nursing home in place order. Continue current medications. Continue current medications for shoulder pain and complete Range Of Motion throughout the day as discussed. We will call you with lab results and plan when available. Cover ankle wound with light dressing and follow up with Surgeon when contacted due to nursing home in place order. Follow up in 3 months. documented in this encounter Progress Notes * Leonard Jasso APNP - 02/20/2020 8:15 AM CDT Chief Complaint Patient presents with ??? Urinary Incontinence urology referral in March [address] [address] Dept: [phone] Dept Loc: [phone] Loc Date: 02/20/2020 Name: Edilberto Hawley : 1955 PCP: TIFFANI Galeano Subjective: Patient ID: Edilberto Hawley is a 64 y.o. male. Right lower extremity wound 2cm long 1cm wide. Scant to No drainage. Granulation tissue noted. Unable to follow up with surgeon due to nursing home in place. Reassured pt wound appears to [...] in March for follow up due to nursing home in place order. Continue current medications. Continue current medications for shoulder pain and complete Range Of Motion throughout the day as discussed. We will call you with lab results and plan when available. Cover ankle wound with light dressing and follow up with Surgeon when contacted due to nursing home in place order. Follow up in 3 [...] - 4.00 ng/mL 02/20/2020 2:43 PM CDT [facility] Serum specimen (specimen) 02/20/2020 9:05 AM CDT 02/20/2020 1:57 PM CDT Leonard Jasso APRN LAB BLOOD ORDERABLES Final Result [facility] [address]49 [facility] [address] [place] [address] * T4, free (02/20/2020 9:05 AM CDT) Free T4 0.92 0.76 - 1.46 ng/dL 02/20/2020 2:43 PM [facility] Serum specimen (specimen) 02/20/2020 9:05 AM CDT 02/20/2020 1:57 PM CDT Leonard Jasso APRN LAB BLOOD ORDERABLES Final Result [facility] [address]49 [facility] [address] [place] [address] * TSH (02/20/2020 9:05 AM CDT) TSH 1.99 0.36 - 3.74 m[IU]/L 02/20/2020 2:43 PM [facility] Serum specimen (specimen) BLOOD SPECIMEN / Unknown 02/20/2020 9:05 AM CDT 02/20/2020 1:57 PM CDT Leonard Jasso APRN LAB BLOOD ORDERABLES Final Result [facility] [address]49 [facility] [address] [place] [address] * (ABNORMAL) Lipid panel (02/20/2020 9:05 AM CDT) Cholesterol 191 0 - 200 mg/dL 02/20/2020 2:43 PM [facility] Triglycerides 246(H) 30 - 150 mg/dL 02/20/2020 2:43 PM [facility] HDL Cholesterol 37(L) 40 - 60 mg/dL 02/20/2020 2:43 PM [facility] LDL, Calculated 105 0 - 130 mg/dL 02/20/2020 2:43 PM [facility] Cholesterol/HDL Ratio 5.2(H) 4 - 5 02/20/2020 2:43 PM [facility] Serum specimen (specimen) 02/20/2020 9:05 AM CDT 02/20/2020 1:57 PM CDT Leonard Jasso DIET ATTENDANT LAB BLOOD ORDERABLES Final Result [facility] [address] [facility] [address] [place] [address] * (ABNORMAL) Comprehensive metabolic panel (02/20/2020 9:05 AM CDT) Sodium 143 136 - 145 mmol/L 02/20/2020 2:43 PM [facility] Potassium 4.8 3.5 - 5.1 mmol/L 02/20/2020 2:43 PM [facility] Chloride 105 98 - 107 mmol/L 02/20/2020 2:43 PM [facility] CO2 29 21 - 32 mmol/L 02/20/2020 2:43 PM [facility] Glucose 152(H) 74 - 106 mg/dL 02/20/2020 2:43 PM [facility] BUN 15 7.0 - 18.0 mg/dL 02/20/2020 2:43 PM [facility] Creatinine 1.05 0.70 - 1.30 mg/dL 02/20/2020 2:43 PM [facility] Calcium 9.4 8.5 - 10.1 mg/dL 02/20/2020 2:43 PM [facility] Total Protein 8.2 6.4 - 8.2 g/dL 02/20/2020 2:43 PM [facility] Albumin 4.2 3.4 - 5.0 g/dL 02/20/2020 2:43 PM [facility] Bilirubin Total 0.5 0.2 - 1.0 mg/dL 02/20/2020 2:43 PM [facility] Alkaline Phosphatase 94 56 - 119 U/L 02/20/2020 2:43 PM [facility] AST 49(H) 15 - 37 U/L 02/20/2020 2:43 PM [facility] ALT 73(H) 16 - 63 U/L 02/20/2020 2:43 PM [facility] Anion Gap 9 8 - 16 mmol/L 02/20/2020 2:43 PM [facility] BUN/Creatinine Ratio 14.3 02/20/2020 2:43 PM [facility] Osmolality Calculated 289 285 - 295 mosm/kg 02/20/2020 2:43 PM [facility] Globulin 4.0(H) 2.3 - 3.4 g/dL 02/20/2020 2:43 PM [facility] A/G Ratio 1.1(L) 1.2 - 2.4 02/20/2020 2:43 PM [facility] Creatinine Based eGFR 74 mL/min/[1. 73_m2] 02/20/2020 2:43 PM [facility] Comment:GFR 60-90 Mild decre ased GFR. EGFR /South Korean 85 mL/min/[1. 73_m2] 02/20/2020 2:43 PM [facility] Comment:GFR 60-90 Mild decre ased GFR. Serum specimen (specimen) 02/20/2020 9:05 AM CDT 02/20/2020 1:57 PM T Leonard Jasso DIET ATTENDANT LAB BLOOD ORDERABLES Final Result [facility] [address]49 [facility] [address] [place] [address] * CBC and differential (02/20/2020 9:05 AM CDT) WBC 6.91 4.00 - 11.00 10*3/uL 02/20/2020 2:08 PM [facility] RBC 5.58 4.50 - 6.50 10*6/uL 02/20/2020 2:08 PM [facility] HGB 17.0 13.8 - 18.0 g/dL 02/20/2020 2:08 PM [facility] HCT 50.8 40.0 - 54.0 % 02/20/2020 2:08 PM [facility] MCV 91.0 76 - 99 fL 02/20/2020 2:08 PM [facility] MCH 30.5 27.0 - 32.0 pg 02/20/2020 2:08 PM [facility] MCHC 33.5 30.0 - 35.0 g/dL 02/20/2020 2:08 PM [facility] Platelets 216 135 - 470 10*3/uL 02/20/2020 2:08 PM [facility] RDW-CV 12.4 11.0 - 17.0 % 02/20/2020 2:08 PM [facility] MPV 10.3 8.0 - 12.5 fL 02/20/2020 2:08 PM [facility] Differential Type AUTOMATED DIFFERENTIAL 02/20/2020 2:08 PM [facility] Neutrophil % 61.6 45.0 - 75.0 % 02/20/2020 2:08 PM [facility] Lymphocytes % 26.9 20.0 - 45.0 % 02/20/2020 2:08 PM [facility] Monocyte % 8.8 0.0 - 10.0 % 02/20/2020 2:08 PM [facility] Eosinophils Relative % 2.0 0.0 - 5.0 % 02/20/2020 2:08 PM [facility] Basophils % 0.4 0.0 - 2.0 % 02/20/2020 2:08 PM [facility] Immature Granulocytes% 0.3 0.0 - 1.6 % 02/20/2020 2:08 PM [facility] Neutrophils Absolute 4.25 2.00 - 7.90 10*3/uL 02/20/2020 2:08 PM [facility] Lymphocytes Absolute 1.86 1.00 - 4.00 10*3/uL 02/20/2020 2:08 PM [facility] Monos Absolute 0.61 0.00 - 0.80 10*3/uL 02/20/2020 2:08 PM [facility] Eosinophils Absolute Count 0.14 0.00 - 0.40 10*3/uL 02/20/2020 2:08 PM [facility] Basophils Absolute 0.03 0.00 - 0.10 10*3/uL 02/20/2020 2:08 PM [facility] Immature Granulocytes Absolute 0.02 0.0 - 0.20 10*3/uL 02/20/2020 2:08 PM [facility] Serum specimen (specimen) 02/20/2020 9:05 AM CDT 02/20/2020 1:57 PM CDT us Leonard Jasso APRN LAB BLOOD ORDERABLES Final Result [facility] [address] [facility] [address] [place] [address] * Urine Drug Screen (02/20/2020) Urine specimen (specimen) 02/20/2020 Narrative [facility] - 02/26/2020 8:38 AM CDT See scanned image. us Leonard W Wasielewski DIET ATTENDANT URINE ORDERABLES Veronica l Result [facility] [address] [place] documented in this encounter Visit Diagnoses [...] sciatica documented in this encounter Care Teams Biomedical Field Service Engineer Relationship Specialty Start Date End Date Leonard Jasso APRN [address] [facility] [address] [place], [place] [address] PCP - General Family Medicine 08/15/19 04/30/21 Lacey Perdue MD [address] [address] Referring Physician Infectious Diseases 06/28/18 documented as of this encounter
--- OUTSIDE RECORDS SUMMARY | 2024-11-23 10:18 | XMS_ITS | Encounter Summary ---
Author Organization [employer] Address [address] [place] [address] Care Team Providers Care Exhibition Specialist Name Role Phone Denny Dey DO Unavailable [phone] Lacey Perdue MD Unavailable [phone] Leonard Jasso APRN Primary Care Provide r Reason for Visit * Reason Onset Date Comments Medication Refill 06/05/2019 Encounter Details Date Type Department Care Team (Late st Contact Info) Description 06/02/2019 Refill [facility] [address] [place] [address] Anna Gordillo, CLINICAL FIELD SPECIALIST [address] [facility] [facility] [address] [place] [address] Social History Tobacco Use Types [...] No 10/25/2017 2:00 PM Deonna Padilla, HEALTH INFORMATICS ADVISOR * Do you have serious difficulty walking or climbing stairs? (5 years old or older) Answer Date of Assessment Author No 10/25/2017 2:00 PM Deonna Padilla, HEALTH INFORMATICS ADVISOR * Do you have difficulty dressing or bathing? 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 Thank you Yani S documented in this encounter Plan of Treatment Not on file documented as of this encounter Goals Goal Patient Goal Type Associated Problems Recent Progress Patient-Stated? Author Blood Pressure < 140/90 Blood Pressure 134/86(2022 2:25 PM CDT) No Leonard Jasso APRN documented as of this encounter Visit Diagnoses Not on filedocumented in this encounter Care Teams Exhibition Specialist Relationship Specialty Start Date End Date Leonard Jasso APRN [address] [place] [address] PCP - General Family Medicine 11/25/18 08/14/19 Denny Dey DO Referring Physician Orthopedic Surgery 06/28/18 9 Lacey Perdue MD [address] [address] Referring Physician Infectious Diseases 06/28/18 documented as of this encounter
--- OUTSIDE RECORDS SUMMARY | 2024-11-23 10:18 | XMS_ITS | Encounter Summary ---
Author Organization [employer] Address [address] [place] [address] Care Team Providers Care Drapery Installer Name Role Phone Lacey Perdue MD Unavailable [phone] Leonard Jasso APRN Primary Care Provide r Reason for Referral * MRI/CAT Scan (Routine) - Closed Specialty Diagnoses / Procedures Referred By Contac t Referred To Contact Radiology Diagnoses Non-healing surgical wound SAPHO syndrome Osteomyelitis Procedures MRI Lower Extremity Joint w wo Contrast Brittani Light MD [address] [place] [address] Phone: tel: fax: Referral ID Status Reason Start Date Expiration Date Visits Re quested Visits Authorized [id number] Closed 08/18/2019 08/17/2020 1 1 Encounter Details Date Type Department Care Team (Latest Contact Info) Description 08/18/2019 Transcribe Orders [facility] General Radiology [address] [place] [address] Brittani Light MD [facility] [place] [address] Non-healing surgical wound (Primary Dx); [...] Author No 10/25/2017 2:00 PM Deonna Padilla, FIELD COIL WINDER * Are you blind or do you have serious difficulty seeing, even when wearing glasses? Answer Date of Assessment Author No 10/25/2017 2:00 PM Deonna Padilla, FIELD COIL WINDER * Do you have serious difficulty walking or climbing stairs? (5 years old or older) Answer Date of Assessment Author No 10/25/2017 2:00 PM Deonna Padilla, FIELD COIL WINDER * Do you have difficulty dressing or bathing? (5 years old or older) Answer Date of Assessment Author No 10/25/2017 2:00 PM Deonna Padilla, FIELD COIL WINDER * Because of a physical, mental, or emotional condition, do you have difficulty doing errands alone such as visiting a doctor's office or shopping? (15 years old or older) Answer Date of Assessment Author No 10/25/2017 2:00 PM Deonna Padilla FIELD COIL WINDER documented as of this encounter Mental Status * Because of a physical, mental, or emotional condition, do you have serious difficulty concentrating, remembering, or making decisions? (5 years old or older) Answer Entry Date Author No 10/25/2017 2:00 PM Deonna Padilla FIELD COIL WINDER documented in this encounter Plan of [...] PM T: ??08/23/2019 4:27 PM Report ID: [id number] Reading Location: ??[id number] Narrative 08/23/2019 4:27 [place] [address] Patient Name:EDILBERTO DURAND ?Accession Number: [id number] Patient ID Number:[id number] ?Approval Date: 08/23/2019 4:27 PM Date of [...] Procedure Note Kellie Ambrocio MD - 08/23/2019 [place] [address] Patient Name:EDILBERTO DURAND Accession Number: [id number] Patient ID Number:[id number] Approval Date: 08/23/2019 4:27 PM Date of [...] by Kellie Ambrocio M.D. 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
--- OUTSIDE RECORDS SUMMARY | 2024-11-23 10:18 | XMS_ITS | Encounter Summary ---
Author Organization [employer] Address [address] [place] [address] Care Team Providers Care Doctor Podiatric Medicine Name Role Phone Lacey Perdue MD Unavailable [phone] David Concepcion APRN Primary Care Provide r Reason for Referral * MRI/CAT Scan (Routine) - Closed Specialty Diagnoses / Procedures Referred By Contac t Referred To Contact Radiology Diagnoses Chronic bilateral low back pain with left-sided sciatica Procedures MRI Lumbar Spine wo Contrast David Concepcion, ANGIE [address] [place] [address] Phone: tel: fax: Referral ID Status Reason Start Date Expiration Date Visits Re quested Visits Authorized [id number] Closed 08/23/2019 08/22/2020 1 1 Reason for Visit * MRI/CAT Scan (Routine) - Closed Specialty Diagnoses / Procedures Referred By Contac t Referred To Contact Radiology Diagnoses Chronic bilateral low back pain with left-sided sciatica Procedures MRI Lumbar Spine wo Contrast David Concepcion, ANGIE [address] [place] [address] Phone: tel: fax: Referral ID Status Reason Start Date Expiration Date Visits Re quested Visits Authorized [id number] Closed 08/23/2019 08/22/2020 1 1 Encounter Details Date Type Department Care Team (Late st Contact Info) Description 08/30/2019 7:18 AM CDT - 08/30/2019 11:59 PM CDT Hospital Encounter [facility] [address] [place] [address] David Concepcion, ASSEMBLER PLASTIC BOAT [address] [place] [address] Chronic bilateral low back pain with left-sided [...] Author No 10/25/2017 2:00 PM Deonna Padilla, HANDBAG STITCHER * Do you have serious difficulty walking or climbing stairs? (5 years old or older) Answer Date of Assessment Author No 10/25/2017 2:00 PM Deonna Padilla, HANDBAG STITCHER * Do you have difficulty dressing or bathing? (5 years old or older) Answer Date of Assessment Author No 10/25/2017 2:00 PM Deonna Padilla, HANDBAG STITCHER * Because of a physical, mental, or emotional condition, do you have difficulty doing errands alone such as visiting a doctor's office or shopping? (15 years old or older) Answer Date of Assessment Author No 10/25/2017 2:00 PM Deonna Padilla HANDBAG STITCHER documented as of this encounter Mental [...] fracture in the lumbar spine. 2. ??Multilevel cqnz-ix-mvsalnia lumbar spondylotic changes as described. ??No high-grade [...] AM T: ??08/30/2019 9:16 AM Report ID: [id number] Reading Location: ??[id number] Narrative 08/30/2019 9:16 AM CDT [address] [place] [address] Patient Name:EDILBERTO DURAND ?Accession Number: [id number] Patient ID Number:[id number] ?Approval Date: 08/30/2019 9:16 AM Date of [...] Note Todd De Souza DO - 08/30/[address] [place] [address] Patient Name:EDILBERTO DURAND Accession Number: [id number] Patient ID Number:[id number] Approval Date: 08/30/2019 9:16 AM Date of [...] fracture in the lumbar spine. 2. Multilevel [id number]-zd-[id number] lumbar spondylotic changes as described.No high-grade spinal [...] De Souza D.O. AP: ESTEFANÍA Report ID: [id number] Reading Location: [place] [address] David Concepcion APRN IMG MRI ORDERABLES Fi nal Result documented in this encounter Visit Diagnoses Diagnosis Chronic bilateral low back pain with left-sided sciatica documented in this encounter Care Teams Doctor Podiatric Medicine Relationship Specialty Start Date End Date David Concepcion APRN [address] [facility] [address] [place] [address] PCP - General Family Medicine 08/15/19 04/30/21 Lacey Perdue MD [address] [phone] Referring Physician Infectious Diseases 06/28/18 documented as of this encounter
--- OUTSIDE RECORDS SUMMARY | 2024-11-23 10:18 | XMS_ITS | Encounter Summary ---
Author Organization [employer] Address [address] [place] [address] Care Team Providers Care Semiconductor Wafers Etcher Stripper Name Role Phone Lacey Perdue MD Unavailable [phone] Leonard Jasso APRN Primary Care Provide r Reason for Visit * Reason Onset Date Comments Medication Refill 04/15/2020 Encounter Details Date Type Department Care Team (Late st Contact Info) Description 04/15/2020 Refill [facility] [address] [place], [place] [id number] Maxine Howell, [facility] [address] 14[address] [facility] [address] [place], [place] [id number] Social History Tobacco Use Types Packs/Day Years [...] Author No 10/25/2017 2:00 PM Deonna Padilla, LEASING ASSOCIATE * Do you have serious difficulty walking or climbing stairs? (5 years old or older) Answer Date of Assessment Author No 10/25/2017 2:00 PM Deonna Padilla, LEASING ASSOCIATE * Do you have difficulty dressing or bathing? (5 years old or older) Answer Date of Assessment Author No 10/25/2017 2:00 PM Deonna Padilla, LEASING ASSOCIATE * Because of a physical, mental, or emotional condition, do you have difficulty doing errands alone such as visiting a doctor's office or shopping? (15 years old or older) Answer Date of Assessment Author No 10/25/2017 2:00 PM Deonna Padilla, LEASING ASSOCIATE documented as of this encounter Mental Status * Because of a physical, mental, or emotional condition, do you have serious difficulty concentrating, remembering, or making decisions? (5 years old or older) Answer Entry Date Author No 10/25/2017 2:00 PM Deonna Padilla, LEASING ASSOCIATE documented in this encounter Plan of Treatment Not on file documented as of this encounter Goals Goal Patient Goal Type Associated Problems Recent Progress Patient-Stated? Author Blood Pressure < 140/90 Blood Pressure 134/86(2022 2:25 PM CDT) No Leonard Jasso APRN documented as of this encounter Visit Diagnoses Not on filedocumented in this encounter Care Teams Semiconductor Wafers Etcher Stripper Relationship Specialty Start Date End Date Leonard Jasso APRN 1454 [facility] [address] [place] [address] PCP - General Family Medicine 08/15/19 04/30/21 Lacey Perdue MD [address] [phone] Referring Physician Infectious Diseases 06/28/18 documented as of this encounter
--- OUTSIDE RECORDS SUMMARY | 2024-11-23 10:18 | XMS_ITS | Encounter Summary ---
Author Organization [employer] Address [address] [place] [address] Care Team Providers Care Weighbridge Operator Name Role Phone Lacey Perdue MD Unavailable [phone] Leonard Jasso APRN Primary Care Provide r Encounter Details Date Type Department Care Team (Latest Contact Info) Description 08/23/2019 9:00 AM CDT - 08/23/2019 12:53 PM CDT Hospital Encounter [facility] [address] [place] [phone] SAPHO syndrome Discharge Disposition: Home - Discharge [...] Blood Pressure 134/86(2022 2:25 PM CDT) No Leonadr Jasso, ANGIE documented as of this encounter Procedures Procedure Name Priority Date/Time Associated Diagnosis Comments CREATININE, BLOOD Routine 08/23/2019 12: 50 PM CDT SAPHO syndrome documented in this encounter Results * Creatinine, Blood (08/23/2019 12:50 PM CDT) Creatinine 1.02 0.70 - 1.30 mg/dL 08/23/2019 1:26 PM [facility] Creatinine Based eGFR >60 08/23/2019 1:26 PM [facility] Comment: GFR REFERENCE RANGE: >60 mL/min/1.73m2 -- An eGFR of > than, or = to 60, may indicate normal renal function or mildly decreased GFR. EGFR /Karla n >60 08/23/2019 1:26 PM [facility] Comment: -- An eGFR of > than, or = to 60, may indicate normal renal function or mildly decreased GFR. Serum specimen (specimen) 08/23/2019 12:50 PM CDT 08/23/2019 12:57 PM CDT us Sunil Light MD LAB BLOOD ORDERABLES Final Res ult [facility] [address] 2049 [facility] [address] [place] [address] documented in this encounter Visit Diagnoses Diagnosis SAPHO syndrome Traumatic spondylopathy documented in this encounter Care Teams Weighbridge Operator Relationship Specialty Start Date End Date Leonard Jasso, LINSEED CAKE TRIMMER [address] [facility] [address]49 [place] [address] PCP - General Family Medicine 08/15/19 04/30/21 Lacey Perdue MD [address] [phone] Referring Physician Infectious Diseases 06/28/18 documented as of this encounter
--- OUTSIDE RECORDS SUMMARY | 2024-11-23 10:18 | XMS_ITS | Encounter Summary ---
Author Organization [employer] Address [address] [place] [address] Care Team Providers Care Kiss Machine Operator Name Role Phone Lacey Perdue MD Unavailable [phone] Leonard Jasso GYM SUPERVISOR Primary Care Provide r Encounter Details Date Type Department Care Team (Late st Contact Info) Description 02/14/2020 Orders Only [facility] [address] [place], [place] [address] Leonard Jasso, GYM SUPERVISOR [address] [place] [address] Social History Tobacco Use Types [...] of Assessment Author No 10/25/2017 2:00 PM CHANGE MANAGEMENT Galvan, Am y S, CABIN OUTFITTER * Are you blind or do you have serious difficulty seeing, even when wearing glasses? Answer Date of Assessment Author No 10/25/2017 2:00 PM JOHN Galvan Am y S, CABIN OUTFITTER * Do you have serious difficulty walking or climbing stairs? (5 years old or older) Answer Date of Assessment Author No 10/25/2017 2:00 PM JOHN Galvan Am y S, CABIN OUTFITTER * Do you have difficulty dressing or bathing? (5 years old or older) Answer Date of Assessment Author No 10/25/2017 2:00 PM CHANGE MANAGEMENT Cole Am y S, CABIN OUTFITTER * Because of a physical, mental, or emotional condition, do you have difficulty doing errands alone such as visiting a doctor's office or shopping? (15 years old or older) Answer Date of Assessment Author No 10/25/2017 2:00 PM JOHN Galvan Am y S, CABIN OUTFITTER documented as of this encounter Mental Status * Because of a physical, mental, or emotional condition, do you have serious difficulty concentrating, remembering, or making decisions? (5 years old or older) Answer Entry Date Author No 10/25/2017 2:00 PM JOHN Galvan Am y S, CABIN OUTFITTER documented in this encounter Plan of Treatment Not on file documented as of this encounter Goals Goal Patient Goal Type Associated Problems Recent Progress Patient-Stated? Author Blood Pressure < 140/90 Blood Pressure 134/86(2022 2:25 PM CDT) No Leonard Jasso APRN documented as of this encounter Visit Diagnoses Not on filedocumented in this encounter Care Teams Kiss Machine Operator Relationship Specialty Start Date End Date Leonard Jasso APRN 1454 [facility] 2049 [place] [address] PCP - General Family Medicine 08/15/19 04/30/21 Lacey Perdue MD [address] [phone] Referring Physician Infectious Diseases 06/28/18 documented as of this encounter
--- OUTSIDE RECORDS SUMMARY | 2024-11-23 10:18 | XMS_ITS | Encounter Summary ---
Author Organization [employer] Address [address] [place] [address] Care Team Providers Care Cook Seafood Name Role Phone Denny Dey DO Unavailable Lacey Perdue MD Unavailable Leonard Jasso APRN Primary Care Provide r Encounter Details Date Type Department Care Team (Late st Contact Info) Description 06/02/2019 Orders Only [address] [address] Leonard Jasso APRN [facility]0 [place], [place] [phone] Social History Tobacco Use Types Packs/Day Years [...] No 10/25/2017 2:00 PM Deonna Padilla, CERTIFIED ART THERAPIST * Do you have serious difficulty walking or climbing stairs? (5 years old or older) Answer Date of Assessment Author No 10/25/2017 2:00 PM Deonna Padilla, CERTIFIED ART THERAPIST * Do you have difficulty dressing or bathing? (5 years old or older) Answer Date of Assessment Author No 10/25/2017 2:00 PM Deonna Padilla, CERTIFIED ART THERAPIST * Because of a physical, mental, or emotional condition, do you have difficulty doing errands alone such as visiting a doctor's office or shopping? (15 years old or older) Answer Date of Assessment Author No 10/25/2017 2:00 PM Deonna Padilla, CERTIFIED ART THERAPIST documented as of this encounter Mental Status * Because of a physical, mental, or emotional condition, do you have serious difficulty concentrating, remembering, or making decisions? (5 years old or older) Answer Entry Date Author No 10/25/2017 2:00 PM Deonna Padilla, CERTIFIED ART THERAPIST documented in this encounter Plan of Treatment Not on file documented as of this encounter Goals Goal Patient Goal Type Associated Problems Recent Progress Patient-Stated? Author Blood Pressure < 140/90 Blood Pressure 134/86(2022 2:25 PM CDT) No Leonard Jasso APRN documented as of this encounter Visit Diagnoses Not on filedocumented in this encounter Care Teams Cook Seafood Relationship Specialty Start Date End Date Leonard Jasso APRN [address] [place] [address] PCP - General Family Medicine 11/25/18 08/14/19 Denny Dey DO Referring Physician Orthopedic Surgery 06/28/18 9 Lacey Perdue MD [address] [phone] Referring Physician Infectious Diseases 06/28/18 documented as of this encounter
--- OUTSIDE RECORDS SUMMARY | 2024-11-23 10:18 | XMS_ITS | Encounter Summary ---
Author Organization [employer] Address [address] [place] [address] Care Team Providers Care Screwdown Operator Name Role Phone Denny Dey Maya TAYLOR Unavailable [phone] Lacey Perdue MD Unavailable [phone] Leonard Jasso APRN Primary Care Provide r Reason for Referral * Referral (Routine) - Closed Specialty Diagnoses / Procedures Referred By Celine almaguer Referred To Contact Wound Care Diagnoses Open wound of ankle with complication, right, subsequent encounter Sebastián Siegel DO [address] [address] Phone: tel: fax: [place] [address] [place] [address] Phone: tel: fax: Referral ID Status Reason Start Date Expiration Date V isits Requested Visits Authorized [id number] Closed Specialty Services Required 06/12/2019 06/11/2020 1 1 Reason for Visit * Reason Comments Back Pain Encounter Details Date Type Department Care Team (Late st Contact Info) Description 06/12/2019 8:15 AM CDT Office Visit [address] [address] Leonard Jasso, ANGIE [address] [place] [address] Open wound of ankle with complication, right, [...] the agreement. We will refer you to [facility] for second opinion of right ankle wound. You will be contacted with time and date. Follow up in 3 months. documented in this encounter Progress Notes * Leonard Jasso APNP - 06/12/2019 8:15 AM CDT Chief Complaint Patient presents with ??? Back Pain [address] [address] Dept: [phone] Dept Loc: [phone] Loc Date: 06/12/2019 Name: Edilberto Hawley : [...] not satisfied with wound clinic results at [facility]. He is requesting a second opinion. History [...] the agreement. We will refer you to [facility] for second opinion of right [...] Referral to Wound Clinic (06/26/2019) 06/26/[address] [facility] - 07/03/2019 10:58 AM CDT See scanned image us Sebastián Siegel DO OUTPATIENT REFERRAL ORDERABLE S Final Result [facility] [address] [place] [address] documented in this encounter Visit Diagnoses Diagnosis Open wound of ankle with complication, right, subsequent encounter- Primary Chronic bilateral low back pain without sciatica documented in this encounter Care Teams Screwdown Operator Relationship Specialty Start Date End Date Leonard Jasso APRN [address]0 [place] [address] PCP - General Family Medicine 11/25/18 08/14/19 Denny Dey DO Referring Physician Orthopedic Surgery 06/28/18 9 Lacey Perdue MD [address] [phone] Referring Physician Infectious Diseases 06/28/18 documented as of this encounter
--- OUTSIDE RECORDS SUMMARY | 2024-11-23 10:18 | XMS_ITS | Encounter Summary ---
Author Organization [facility] Address [address] [place] [address] Care Team Providers Care Shellfish Manager Name Role Phone Lacey Perdue MD Unavailable [phone] Leonard Jasso APRN Primary Care Provide r Reason for Visit * Reason Onset Date Comments Medication Refill 03/15/2020 Encounter Details Date Type Department Care Team (Late st Contact Info) Description 03/15/[address] [facility] [address] [place], [place] [phone] Maxine Howell, [facility] 1454 [facility] 2050 [place], [place] [address] Social History Tobacco Use Types Packs/Day Years [...] of Assessment Author No 10/25/2017 2:00 PM INTERNATIONAL SPECIALIST Deonna Galvan y S, GLOBAL LOGISTICS MANAGER * Are you blind or do you have serious difficulty seeing, even when wearing glasses? Answer Date of Assessment Author No 10/25/2017 2:00 PM INTERNATIONAL SPECIALIST Deonna Galvan y S, GLOBAL LOGISTICS MANAGER * Do you have serious difficulty walking or climbing stairs? (5 years old or older) Answer Date of Assessment Author No 10/25/2017 2:00 PM INTERNATIONAL SPECIALIST Deonna Galvan y S, GLOBAL LOGISTICS MANAGER * Do you have difficulty dressing or bathing? (5 years old or older) Answer Date of Assessment Author No 10/25/2017 2:00 PM INTERNATIONAL SPECIALIST Cole Am y S, GLOBAL LOGISTICS MANAGER * Because of a physical, mental, or emotional condition, do you have difficulty doing errands alone such as visiting a doctor's office or shopping? (15 years old or older) Answer Date of Assessment Author No 10/25/2017 2:00 PM INTERNATIONAL SPECIALIST Cole Am y S, GLOBAL LOGISTICS MANAGER documented as of this encounter Mental Status * Because of a physical, mental, or emotional condition, do you have serious difficulty concentrating, remembering, or making decisions? (5 years old or older) Answer Entry Date Author No 10/25/2017 2:00 PM JOHN Galvan Am y S, GLOBAL LOGISTICS MANAGER documented in this encounter Plan of Treatment Not on file documented as of this encounter Goals Goal Patient Goal Type Associated Problems Recent Progress Patient-Stated? Author Blood Pressure < 140/90 Blood Pressure 134/86(2022 2:25 PM CDT) No Leonard Jasso APRN documented as of this encounter Visit Diagnoses Not on filedocumented in this encounter Care Teams Shellfish Manager Relationship Specialty Start Date End Date Leonard Jasso APRN 1454 [facility] 2049 [place] [address] PCP - General Family Medicine 08/15/19 04/30/21 Lacey Perdue MD [address] [phone] Referring Physician Infectious Diseases 06/28/18 documented as of this encounter
--- OUTSIDE RECORDS SUMMARY | 2024-11-23 10:18 | XMS_ITS | Encounter Summary ---
Author Organization [employer] Address [address] [place] [address] Care Team Providers Care Credit Underwriter Name Role Phone Lacey Perdue MD Unavailable [phone] Leonard Jasso APRN Primary Care Provide r Reason for Visit * Reason Comments Abdominal Pain Patient complains of right side pain, seems to only happen in the oil exploration engineer hours. Encounter Details Date Type Department Care Team (Late st Contact Info) Description 05/10/2020 3:30 PM CDT Office Visit [address] [phone] Leonard Jasso, ANGIE [address] [place] [id number] Right lower quadrant abdominal pain (Primary Dx) [...] Author No 10/25/2017 2:00 PM Deonna Padilla, EQUIPMENT ENGINEER * Are you blind or do you have serious difficulty seeing, even when wearing glasses? Answer Date of Assessment Author No 10/25/2017 2:00 PM Deonna Padilla S, EQUIPMENT ENGINEER * Do you have serious difficulty walking or climbing stairs? (5 years old or older) Answer Date of Assessment Author No 10/25/2017 2:00 PM Deonna Padilla, EQUIPMENT ENGINEER * Do you have difficulty dressing or bathing? (5 years old or older) Answer Date of Assessment Author No 10/25/2017 2:00 PM Deonna Padilla S, EQUIPMENT ENGINEER * Because of a physical, mental, or emotional condition, do you have difficulty doing errands alone such as visiting a doctor's office or shopping? (15 years old or older) Answer Date of Assessment Author No 10/25/2017 2:00 PM Deonna Padilla, EQUIPMENT ENGINEER documented as of this encounter Mental Status * Because of a physical, mental, or emotional condition, do you have serious difficulty concentrating, remembering, or making decisions? (5 years old or older) Answer Entry Date Author No 10/25/2017 2:00 PM Deonna Padilla, EQUIPMENT ENGINEER documented in this encounter Patient Instructions [...] pain, seems to only happen in the oil exploration engineer hours. [address] [address] Dept: [phone] Dept Loc: [phone] Loc Date: 05/10/2020 Name: Edilberto Hawley : [...] 136 - 145 mmol/L 05/10/2020 5:27 PM [facility] Potassium 4.2 3.5 - 5.1 mmol/L 05/10/2020 5:27 PM [facility] Chloride 104 98 - 107 mmol/L 05/10/2020 5:27 PM [facility] CO2 27 21 - 32 mmol/L 05/10/2020 5:27 PM [facility] Glucose 143(H) 74 - 106 mg/dL 05/10/2020 5:27 PM [facility] BUN 16 7.0 - 18.0 mg/dL 05/10/2020 5:27 PM [facility] Creatinine 1.23 0.70 - 1.30 mg/dL 05/10/2020 5:27 PM [facility] Calcium 9.3 8.5 - 10.1 mg/dL 05/10/2020 5:27 PM [facility] Total Protein 7.9 6.4 - 8.2 g/dL 05/10/2020 5:27 PM [facility] Albumin 4.2 3.4 - 5.0 g/dL 05/10/2020 5:27 PM [facility] Bilirubin Total 0.7 0.2 - 1.0 mg/dL 05/10/2020 5:27 PM [facility] Alkaline Phosphatase 91 56 - 119 U/L 05/10/2020 5:27 PM [facility] AST 115(H) 15 - 37 U/L 05/10/2020 5:27 PM [facility] ALT 167(H) 16 - 63 U/L 05/10/2020 5:27 PM [facility] Anion Gap 9 8 - 16 mmol/L 05/10/2020 5:27 PM [facility] BUN/Creatinine Ratio 13.0 05/10/2020 5:27 PM [facility] Osmolality Calculated 283(L) 285 - 295 mosm/kg 05/10/2020 5:27 PM [facility] Globulin 3.7(H) 2.3 - 3.4 g/dL 05/10/2020 5:27 PM [facility] A/G Ratio 1.1(L) 1.2 - 2.4 05/10/2020 5:27 PM [facility] Creatinine Based eGFR 61 mL/min/[1. 73_m2] 05/10/2020 5:27 PM [facility] Comment:GFR 60-90 Mild decre ased GFR. EGFR /Martiniquais 70 mL/min/[1. 73_m2] 05/10/2020 5:27 PM [facility] Comment:GFR 60-90 Mild decre ased GFR. Serum specimen (specimen) 05/10/2020 4:43 PM CDT 05/10/2020 4:47 PM CDT us Leonard Jasso MANAGER PEOPLE LAB BLOOD ORDERABLES Final Result [facility] [address] 2049 [facility] [address] [place] [address] * (ABNORMAL) CBC and differential (05/10/2020 4:43 PM CDT) WBC 10.78 4.00 - 11.00 10*3/uL 05/10/2020 4:51 PM [facility] RBC 5.09 4.50 - 6.50 10*6/uL 05/10/2020 4:51 PM [facility] HGB 15.8 13.8 - 18.0 g/dL 05/10/2020 4:51 PM [facility] HCT 46.5 40.0 - 54.0 % 05/10/2020 4:51 PM [facility] MCV 91.4 76 - 99 fL 05/10/2020 4:51 PM [facility] MCH 31.0 27.0 - 32.0 pg 05/10/2020 4:51 PM [facility] MCHC 34.0 30.0 - 35.0 g/dL 05/10/2020 4:51 PM [facility] Platelets 205 135 - 470 10*3/uL 05/10/2020 4:51 PM [facility] RDW-CV 11.9 11.0 - 17.0 % 05/10/2020 4:51 PM [facility] MPV 9.7 8.0 - 12.5 fL 05/10/2020 4:51 PM [facility] Differential Type AUTOMATED DIFFERENTIAL 05/10/2020 4:52 PM [facility] Neutrophil % 70.4 45.0 - 75.0 % 05/10/2020 4:52 PM [facility] Lymphocytes % 20.0 20.0 - 45.0 % 05/10/2020 4:52 PM [facility] Monocyte % 7.5 0.0 - 10.0 % 05/10/2020 4:52 PM [facility] Eosinophils Relative % 1.2 0.0 - 5.0 % 05/10/2020 4:52 PM [facility] Basophils % 0.4 0.0 - 2.0 % 05/10/2020 4:52 PM [facility] Immature Granulocytes% 0.5 0.0 - 1.6 % 05/10/2020 4:52 PM [facility] Neutrophils Absolute 7.59 2.00 - 7.90 10*3/uL 05/10/2020 4:52 PM [facility] Lymphocytes Absolute 2.16 1.00 - 4.00 10*3/uL 05/10/2020 4:52 PM [facility] Monos Absolute 0.81(H) 0.00 - 0.80 10*3/uL 05/10/2020 4:52 PM [facility] Eosinophils Absolute Count 0.13 0.00 - 0.40 10*3/uL 05/10/2020 4:52 PM [facility] Basophils Absolute 0.04 0.00 - 0.10 10*3/uL 05/10/2020 4:52 PM [facility] Immature Granulocytes Absolute 0.05 0.0 - 0.20 10*3/uL 05/10/2020 4:52 PM [facility] Serum specimen (specimen) 05/10/2020 4:43 PM CDT 05/10/2020 4:47 PM CDT Leonard Jasso APRN LAB BLOOD ORDERABLES Final Result [facility] [address] [facility] [address] [place] [address] documented in this encounter Visit Diagnoses Diagnosis Right lower quadrant abdominal pain- Primary Abdominal pain, right lower quadrant documented in this encounter Care Teams Credit Underwriter Relationship Specialty Start Date End Date Leonard Jasso APRN [address] [facility] [address]49 [place] [address] PCP - General Family Medicine 08/15/19 04/30/21 Lacey Perdue MD [address] [phone] Referring Physician Infectious Diseases 06/28/18 documented as of this encounter
--- OUTSIDE RECORDS SUMMARY | 2024-11-23 10:19 | XMS_ITS | Encounter Summary ---
Author Organization [employer] Address [address] [place] [address] Care Team Providers Care Alterations Supervisor Name Role Phone Coco Leos PA-C Primary Care Provider [phone] Denny Dey DO Unavailable [phone] Lacey Perdue MD Unavailable [phone] Encounter Details Date Type Department Care Team (Latest Contact Info) Description 11/14/2018 11:00 AM ULTRASONOGRAPHER - 11/14/2018 11:59 PM ULTRASONOGRAPHER Hospital Encounter [facility] [address] [place] [id number] Encounter for long-term (current) use of antibiotics; [...] of Assessment Author No 10/25/2017 2:00 PM ULTRASONOGRAPHER Galvan, Am y S, DENTURE MODEL MAKER * Do you have serious difficulty [...] C-REACTIVE PROTEIN Routine 11/14/2018 11 :00 AM ULTRASONOGRAPHER Encounter for long-term (current) use of antibiotics Primary localized osteoarthrosis VANCOMYCIN, TROUGH Routine 11/14/2018 11 :00 AM ULTRASONOGRAPHER Encounter for long-term (current) use of antibiotics Primary localized osteoarthrosis COMPREHENSIVE METABOLIC PANEL Routine 11/14/2018 11:00 AM ULTRASONOGRAPHER Encounter for long-term (current) use of antibiotics Primary localized osteoarthrosis documented in this encounter Results * (ABNORMAL) C-reactive protein (11/14/2018 11:00 AM ULTRASONOGRAPHER) CRP 1.30(H) 0.2 - 0.9 mg/dL 11/14/2018 12:39 PM ULTRASONOGRAPHER [facility] Serum specimen (specimen) 11/14/2018 11:00 AM ULTRASONOGRAPHER 11/14/2018 11:52 AM ULTRASONOGRAPHER us Lacey Perdue MD LAB BLOOD ORDERABLES Final R esult [facility] [address] [place] [address] * (ABNORMAL) Vancomycin, trough (11/14/2018 11:00 AM ULTRASONOGRAPHER) Vancomycin Trough 10.8(H) 5.0 - 10.0 mcg/mL 11/14/2018 12:39 PM [facility] Serum specimen (specimen) 11/14/2018 11:00 AM ULTRASONOGRAPHER 11/14/2018 11:52 AM ULTRASONOGRAPHER us Lacey Perdue MD LAB BLOOD ORDERABLES Final R esult [facility] [address] [place] * (ABNORMAL) Comprehensive metabolic panel (11/14/2018 11:00 AM ULTRASONOGRAPHER) Sodium 138 136 - 145 mmol/L 11/14/2018 12:39 PM [facility] Potassium 4.8 3.5 - 5.1 mmol/L 11/14/2018 12:39 PM [facility] Chloride 103 98 - 107 mmol/L 11/14/2018 12:39 PM [facility] CO2 26 21 - 32 mmol/L 11/14/2018 12:39 PM [facility] Glucose 109(H) 74 - 106 mg/dL 11/14/2018 12:39 PM [facility] BUN 9 7.0 - 18.0 mg/dL 11/14/2018 12:39 PM [facility] Creatinine 0.91 0.70 - 1.30 mg/dL 11/14/2018 12:39 PM [facility] Calcium 9.4 8.5 - 10.1 mg/dL 11/14/2018 12:39 PM [facility] Total Protein 7.0 6.4 - 8.2 g/dL 11/14/2018 12:39 PM [facility] Albumin 3.8 3.4 - 5.0 g/dL 11/14/2018 12:39 PM [facility] Bilirubin Total 0.5 0.2 - 1.0 mg/dL 11/14/2018 12:39 PM [facility] [employer] [facility] Alkaline Phosphatase 95 56 - 119 U/L 11/14/2018 12:39 PM [facility] [employer] [facility] AST 47(H) 15 - 37 U/L 11/14/2018 12:39 PM [facility] [employer] [facility] ALT 63 16 - 63 U/L 11/14/2018 12:39 PM [facility] [employer] [facility] Creatinine Based eGFR >60 11/14/2018 12:39 PM [facility] [employer] [facility] Comment: GFR REFERENCE RANGE: >60 mL/min/1.73m2 -- An eGFR of > than, or = to 60, may indicate normal renal function or mildly decreased GFR. EGFR /Moroccan >60 11/14/2018 12:39 PM [facility] [employer] [facility] Comment: -- An eGFR of > than, or = to 60, may indicate normal renal function or mildly decreased GFR. Serum specimen (specimen) 11/14/2018 11:00 AM ULTRASONOGRAPHER 11/14/2018 11:52 AM [facility] us Lacey Perdue MD LAB BLOOD ORDERABLES Final R esult [facility] [address] [place] [address] documented in this encounter Visit Diagnoses Diagnosis Encounter for long-term (current) use of antibiotics Primary localized osteoarthrosis Primary localized osteoarthrosis, unspecified site documented in this encounter Care Teams Alterations Supervisor Relationship Specialty Start Date End Date Coco Leos PA-C [address] [place] [address] PCP - General Physician Certified Nurse 10/25/17 11/24/18 Denny Dey DO [address] [place] [address] Referring Physician Orthopedic Surgery 06/28/18 9 Lacey Perdue MD [address] [address] Referring Physician Infectious Diseases 06/28/18 documented as of this encounter
--- OUTSIDE RECORDS SUMMARY | 2024-11-23 10:19 | XMS_ITS | Encounter Summary ---
Author Organization [employer] Address [address] [place] [address] Care Team Providers Care Licensing Specialist Name Role Phone Denny Dey DO Unavailable [phone] Lacey Perdue MD Unavailable [phone] Leonard Jasso APRN Primary Care Provide r Reason for Visit * Reason Onset Date Comments Scheduled Appointment 12/29/2018 Encounter Details Date Type Department Care Team (Late st Contact Info) Description 12/29/2018 Telephone [facility] Surgery [address] [place] [address] Zenaida Clifton, RN [address] [facility] [address] [place] [address] Scheduled Appointment Social History Tobacco [...] of Assessment Author No 10/25/2017 2:00 PM TURN LASTER Deonna Galvan, KOHINOOR OPERATOR * Do you have serious difficulty walking or climbing stairs? (5 years old or older) Answer Date of Assessment Author No 10/25/2017 2:00 PM TURN LASTER Deonna Galvan S, KOHINOOR OPERATOR * Do you have difficulty dressing or bathing? (5 years old or older) Answer Date of Assessment Author No 10/25/2017 2:00 PM TURN LASTER Deonna Galvan, KOHINOOR OPERATOR * Because of a physical, mental, or emotional condition, do you have difficulty doing errands alone such as visiting a doctor's office or shopping? (15 years old or older) Answer Date of Assessment Author No 10/25/2017 2:00 PM Deonna Padilla, KOHINOOR OPERATOR documented as of this encounter Mental Status * Because of a physical, mental, or emotional condition, do you have serious difficulty concentrating, remembering, or making decisions? (5 years old or older) Answer Entry Date Author No 10/25/2017 2:00 PM Deonna Padilla, KOHINOOR OPERATOR documented in this encounter Miscellaneous Notes * Telephone Encounter - Zenaida Clifton RN - 12/29/2018 12:34 PM TURN LASTER Pt has started a new job and [...] Pt. Was very grateful and verbalized understanding. LASTER documented in this encounter Plan of Treatment Not on file documented as of this encounter Goals Goal Patient Goal Type Associated Problems Recent Progress Patient-Stated? Author Blood Pressure < 140/90 Blood Pressure 134/86(2022 2:25 PM CDT) No Leonard Jasso APRN documented as of this encounter Visit Diagnoses Not on filedocumented in this encounter Care Teams Licensing Specialist Relationship Specialty Start Date End Date Leonard Jasso APRN [address] [place] [address] PCP - General Family Medicine 11/25/18 08/14/19 Denny Dey DO Referring Physician Orthopedic Surgery 06/28/18 9 Lacey Perdue MD [address] [address] Referring Physician Infectious Diseases 06/28/18 documented as of this encounter
--- OUTSIDE RECORDS SUMMARY | 2024-11-23 10:19 | XMS_ITS | Encounter Summary ---
Author Organization [employer] Address [address] [place] [address] Care Team Providers Care Boatbuilder Apprentice Wood Name Role Phone RobertbetoGraceCoco Katt WISE Primary Care Provider [phone] Denny Dey DO Unavailable [phone] Lacey Perdue MD Unavailable Encounter Details Date Type Department Care Team (Latest Contact Info) Description 11/14/2018 Transcribe Orders [facility] [address] [place] [address] Lacey Perdue MD [address] [address] Encounter for long-term (current) use [...] Assessment Author No 10/25/2017 2:00 PM MANAGER USER INTERFACE Deonna Galvan, GEROGE * Are you blind or do you have serious difficulty seeing, even when wearing glasses? Answer Date of Assessment Author No 10/25/2017 2:00 PM Doenna Padilla ARNP * Do you have serious [...] * (ABNORMAL) C-reactive protein (11/14/2018 11:00 AM MANAGER USER INTERFACE) CRP 1.30(H) 0.2 - 0.9 mg/dL 11/14/2018 12:39 PM MANAGER USER INTERFACE [facility] Serum specimen (specimen) 11/14/2018 11:00 AM MANAGER USER INTERFACE 11/14/2018 11:52 AM MANAGER USER INTERFACE us Lacey Perdue MD LAB BLOOD ORDERABLES Final R esult [facility] [address] [place] * (ABNORMAL) Vancomycin, trough (11/14/2018 11:00 AM MANAGER USER INTERFACE) Vancomycin Trough 10.8(H) 5.0 - 10.0 mcg/mL 11/14/2018 12:39 PM MANAGER USER INTERFACE [facility] Serum specimen (specimen) 11/14/2018 11:00 AM MANAGER USER INTERFACE 11/14/2018 11:52 AM MANAGER USER INTERFACE Lacey Perdue MD LAB BLOOD ORDERABLES Final R esult [facility] [address] [place], [place] * (ABNORMAL) Comprehensive metabolic panel (11/14/2018 11:00 AM MANAGER USER INTERFACE) Sodium 138 136 - 145 mmol/L 11/14/2018 12:39 PM [facility] Potassium 4.8 3.5 - 5.1 mmol/L 11/14/2018 12:39 PM [facility] Chloride 103 98 - 107 mmol/L 11/14/2018 12:39 PM [facility] CO2 26 21 - 32 mmol/L 11/14/2018 12:39 PM [facility] Glucose 109(H) 74 - 106 mg/dL 11/14/2018 12:39 PM [facility] BUN 9 7.0 - 18.0 mg/dL 11/14/2018 12:39 PM [facility] Creatinine 0.91 0.70 - 1.30 mg/dL 11/14/2018 12:39 PM [facility] Calcium 9.4 8.5 - 10.1 mg/dL 11/14/2018 12:39 PM [facility] Total Protein 7.0 6.4 - 8.2 g/dL 11/14/2018 12:39 PM [facility] Albumin 3.8 3.4 - 5.0 g/dL 11/14/2018 12:39 PM [facility] Bilirubin Total 0.5 0.2 - 1.0 mg/dL 11/14/2018 12:39 PM [facility] Alkaline Phosphatase 95 56 - 119 U/L 11/14/2018 12:39 PM [facility] AST 47(H) 15 - 37 U/L 11/14/2018 12:39 PM [facility] ALT 63 16 - 63 U/L 11/14/2018 12:39 PM [facility] Creatinine Based eGFR >60 11/14/2018 12:39 PM [facility] Comment: GFR REFERENCE RANGE: >60 mL/min/1.73m2 -- An eGFR of > than, or = to 60, may indicate normal renal function or mildly decreased GFR. EGFR /Fijian >60 11/14/2018 12:39 PM [facility] Comment: -- An eGFR of > than, or = to 60, may indicate normal renal function or mildly decreased GFR. Serum specimen (specimen) 11/14/2018 11:00 AM MANAGER USER INTERFACE 11/14/2018 11:52 AM MANAGER USER INTERFACE Lacey Perdue MD LAB BLOOD ORDERABLES Final R esult [facility] [address] [place], [place] documented in this encounter Visit Diagnoses Diagnosis Encounter for long-term (current) use of antibiotics- Primary Primary localized osteoarthrosis Primary localized osteoarthrosis, unspecified site documented in this encounter Care Teams Boatbuilder Apprentice Wood Relationship Specialty Start Date End Date Coco Leos PA-C [address] [place] [address] PCP - General Physician Steel Pourer 10/25/17 11/24/18 Denny Dey DO [address] [place] [address] Referring Physician Orthopedic Surgery 8/14/18 10/1/1 9 Lacey Perdue MD [address] [address] Referring Physician Infectious Diseases 06/28/18 documented as of this encounter
--- OUTSIDE RECORDS SUMMARY | 2024-11-23 10:19 | XMS_ITS | Encounter Summary ---
Author Organization [employer] Address [address] [place] [address] Care Team Providers Care Detective Chief Name Role Phone Denny Dey DO Unavailable [phone] Lacey Perdue MD Unavailable [phone] Leonard Jasso APRN Primary Care Provide r Reason for Visit * Reason Comments Initial Consult Pt here to consult f or a colonoscopy * Referral (Routine) - Closed Specialty Diagnoses / Procedures Referred By Contjessica t Referred To Contact General Surgery Diagnoses Encounter for screening colonoscopy Leonard Jasso, ANGIE [facility] [place] [address] Phone: tel: fax: Siddhartha Loyd MD [address] [place] [address] [address] [place] [address] Phone: tel: fax: Referral ID Status Reason Start Date Expiration Date V isits Requested Visits Authorized [id number] Closed Specialty Services Required 11/25/2018 11/25/2019 1 1 Encounter Details Date Type Department Care Team (Latest Contact Info) Description 12/01/2018 9:00 AM GUIDANCE DIRECTOR Initial consult [facility] [address] [facility], [address] [place] [phone] Siddhartha Loyd MD [address] [place] [address] [address] [place] [address] Personal history of colonic polyps [...] Comments Blood Pressure 110/76 12/01/2018 9:15 AM GUIDANCE DIRECTOR Pulse 96 12/01/2018 9:15 AM GUIDANCE DIRECTOR Temperature 36.2 ??C (97.2 ??F) 12/01/2018 9:15 AM CS T Respiratory Rate 18 12/01/2018 9:15 AM GUIDANCE DIRECTOR Oxygen Saturation 94% 12/01/2018 9:15 AM GUIDANCE DIRECTOR Inhaled Oxygen Concentration - - Weight 89.6 kg (197 lb 9.6 oz) 12/01/2018 9:15 A M GUIDANCE DIRECTOR Height 180.3 cm (5' 11 ) 12/01/2018 9:15 AM GUIDANCE DIRECTOR Body Mass Index 27.56 12/01/2018 9:15 AM GUIDANCE DIRECTOR documented in this encounter Functional Status * Are you deaf or do you have serious difficulty hearing? Answer Date of Assessment Author No 10/25/2017 2:00 PM GUIDANCE DIRECTOR Deonna Galvan ARNP * Are you [...] by: Leonard Jasso, * This is a [facility] patient. Chief Complaint: Chief Complaint Patient presents [...] nail ??? Shoulder injury ??? Substance abuse ([facility]) cocaine, crystal meth nothing since 1996 ??? [...] ??? ALT 11/14/2018 63 ? ? EGFR Non-/Omani 11/14/2018 >60 ? ? EGFR /Omani 11/14/2018 >60 ??? Vancomycin Trough 11/14/2018 10.8* ??? CRP 11/14/2018 1.30* Hospital Outpatient Visit on 11/11/2018 Component Date Value ??? Sodium 11/11/2018 137 ??? Potassium 11/11/2018 4.2 ??? Chloride 11/11/2018 102 ??? CO2 11/11/2018 26 ??? Glucose 11/11/2018 162* ??? BUN 11/11/2018 13 ??? Creatinine, Serum 11/11/2018 0.93 ??? Calcium 11/11/2018 9.0 ? ? EGFR Non-/Omani 11/11/2018 >60 ? ? EGFR /Omani 11/11/2018 >60 ??? Vancomycin Trough 11/11/2018 7.1 [...] ??? ALT 11/07/2018 51 ? ? EGFR Non-/Omani 11/07/2018 >60 ? ? EGFR /Omani 11/07/2018 >60 ??? Sedimentation Rate 11/07/2018 25* ??? Vancomycin Trough 11/07/2018 9.9 Hospital Outpatient Visit on 11/04/2018 Component Date Value ??? Vancomycin Trough 11/04/2018 10.1* ??? Sodium 11/04/2018 141 ??? Potassium 11/04/2018 4.0 ??? Chloride 11/04/2018 106 ??? CO2 11/04/2018 26 ??? Glucose 11/04/2018 122* ??? BUN 11/04/2018 20* ??? Creatinine, Serum 11/04/2018 0.96 ??? Calcium 11/04/2018 9.3 ? ? EGFR Non-/Omani 11/04/2018 >60 ? ? EGFR /Omani 11/04/2018 >60 Impression and Plan: 63-year-old with [...] of colonic polyps. Siddhartha Loyd MD, FACS ANCE DIRECTOR documented in this encounter Plan of Treatment Not on file documented as of this encounter Goals Goal Patient Goal Type Associated Problems Recent Progress Patient-Stated? Author Blood Pressure < 140/90 Blood Pressure 134/86(2022 2:25 PM CDT) No Leonard Jasso APRN documented as of this encounter Visit Diagnoses Diagnosis Personal history of colonic polyps- Primary documented in this encounter Care Teams Detective Chief Relationship Specialty Start Date End Date Leonard Jasso APRN [facility] [place] [address] PCP - General Family Medicine 11/25/18 08/14/19 Denny Dey DO Referring Physician Orthopedic Surgery 06/28/18 9 Lacey Perdue MD [address] [address] Referring Physician Infectious Diseases 06/28/18 documented as of this encounter
--- OUTSIDE RECORDS SUMMARY | 2024-11-23 10:19 | XMS_ITS | Encounter Summary ---
Author Organization [employer] Address [address] [place] [address] Care Team Providers Care Clothes Wringer Name Role Phone Denny Dey DO Unavailable [phone] Lacey Perdue MD Unavailable Leonard Jasso APRN Primary Care Provide r Reason for Referral * Referral (Routine) - Closed Specialty Diagnoses / Procedures Referred By Celine almaguer Referred To Contact General Surgery Diagnoses Gastroesophageal reflux disease without esophagitis Leonard Jasso APRN [address] [place], [place] [address] Phone: tel: fax: Siddhartha Loyd MD [address] [place] [address] Phone: tel: fax: Referral ID Status Reason Start Date Expiration Date V isits Requested Visits Authorized [id number] Closed Specialty Services Required 01/03/2019 01/03/2020 1 1 GER SOCIAL SERVICES Reason for Visit * Reason Comments Follow-up 2 week follow-up lef t ankle wound Prostate Issues seen by urology and started on proscar-states he feels its helping increase urine flow Encounter Details Date Type Department Care Team (Late st Contact Info) Description 01/03/2019 8:15 AM MANAGER SOCIAL SERVICES Office Visit [address] [place] [address] Leonard Jasso, CEMETERY MANAGER [address] [place] [address] Open wound of ankle with complication, right, [...] Comments Blood Pressure 124/68 01/03/2019 8:21 AM MANAGER SOCIAL SERVICES Pulse 82 01/03/2019 8:21 AM MANAGER SOCIAL SERVICES Temperature 36.6 ??C (97.9 ??F) 01/03/2019 8:21 AM CS T Respiratory Rate 18 01/03/2019 8:21 AM MANAGER SOCIAL SERVICES Oxygen Saturation 94% 01/03/2019 8:21 AM MANAGER SOCIAL SERVICES Inhaled Oxygen Concentration - - Weight 67.1 kg (148 lb) 01/03/2019 8:21 AM MANAGER SOCIAL SERVICES Height 180.3 cm (5' 10.98 ) 01/03/2019 8:[address] Body Mass Index 20.65 01/03/2019 8:21 AM MANAGER SOCIAL SERVICES documented in this encounter Functional Status * Are you deaf or do you have serious difficulty hearing? Answer Date of Assessment Author No 10/25/2017 2:00 PM MANAGER SOCIAL SERVICES Deonna Galvan ARNP * Are you blind or do you have serious difficulty seeing, even when wearing glasses? Answer Date of Assessment Author No 10/25/2017 2:00 PM MANAGER SOCIAL SERVICES Deonna Galvan ARNP * Do you have serious difficulty walking or climbing stairs? (5 years old or older) Answer Date of Assessment Author No 10/25/2017 2:00 PM Deonna Padilla ARNP * Do you have difficulty dressing or bathing? (5 years old or older) Answer Date of Assessment Author No 10/25/2017 2:00 PM MANAGER SOCIAL SERVICES Deonna Galvan, BREAKER ENGINEER * Because of a physical, mental, or emotional condition, do you have difficulty doing errands alone such as visiting a doctor's office or shopping? (15 years old or older) Answer Date of Assessment Author No 10/25/2017 2:00 PM MANAGER SOCIAL SERVICES Deonna Galvan S, BREAKER ENGINEER documented as of this encounter Mental Status * Because of a physical, mental, or emotional condition, do you have serious difficulty concentrating, remembering, or making decisions? (5 years old or older) Answer Entry Date Author No 10/25/2017 2:00 PM MANAGER SOCIAL SERVICES Deonna Galvan S, BREAKER ENGINEER documented in this encounter Patient Instructions * Patient Instructions* Leonard Jasso APNP - 01/03/2019 8:15 AM MANAGER SOCIAL SERVICES Avoid spicey food or foods high in [...] a scope of your throat.Please complete referral. [facility] documented in this encounter Progress Notes * [...] are negative. Objective: BP 124/68 (BP Location: [facility], BP Position: sitting, BP Cuff Size: Reg) [...] a scope of your throat.Please complete referral. GER SOCIAL SERVICES documented in this encounter Plan of [...] General Surgery (04/26/2019 11:45 AM CDT) Narrative [facility] - 04/26/2019 11:45 AM CDT Note in Epic us Leonard Jasso APRN OUTPATIENT REFERRAL O RDERABLES Final Result [facility] [address] [place], [place] documented in this encounter Visit Diagnoses Diagnosis Open wound of ankle with complication, right, subsequent encounter- Primary Benign prostatic hyperplasia with incomplete bladder emptying Gastroesophageal reflux disease without esophagitis Esophageal reflux Gastroesophageal reflux disease, esophagitis presence not specified- Primary documented in this encounter Care Teams Clothes Wringer Relationship Specialty Start Date End Date Leonard Jasso APRN [address] [place] [address] PCP - General Family Medicine 11/25/18 08/14/19 Denny Dey DO Referring Physician Orthopedic Surgery 06/28/18 9 Lacey Perdue MD [address] [address] Referring Physician Infectious Diseases 06/28/18 documented as of this encounter
--- OUTSIDE RECORDS SUMMARY | 2024-11-23 10:19 | XMS_ITS | Encounter Summary ---
Author Organization [employer] Address [address] [place] [address] Care Team Providers Care Frozen Food Selector Name Role Phone Coco Leos PA-C Primary Care Provider [phone] Denny Dey DO Unavailable [phone] Lacey Perdue MD Unavailable [phone] Encounter Details Date Type Department Care Team (Latest Contact Info) Description 11/04/2018 11:45 AM MAPPING SUPERVISOR - 11/04/2018 11:59 PM MAPPING SUPERVISOR Hospital Encounter [facility] [address] [place] [phone] Encounter for long-term (current) use of antibiotics; [...] of Assessment Author No 10/25/2017 2:00 PM MAPPING SUPERVISOR Galvan, Am y S, FIREWORKS MAKER * Do you have serious difficulty [...] VANCOMYCIN, TROUGH Routine 11/04/2018 11 :45 AM MAPPING SUPERVISOR Encounter for long-term (current) use of antibiotics Primary localized osteoarthrosis BASIC METABOLIC PANEL Routine 11/04/2018 11:45 AM MAPPING SUPERVISOR Encounter for long-term (current) use of antibiotics Primary localized osteoarthrosis documented in this encounter Results * (ABNORMAL) Basic metabolic panel (11/04/2018 11:45 AM MAPPING SUPERVISOR) Sodium 141 136 - 145 mmol/L 11/04/2018 1:02 PM [facility] Potassium 4.0 3.5 - 5.1 mmol/L 11/04/2018 1:02 PM [facility] Chloride 106 98 - 107 mmol/L 11/04/2018 1:02 PM [facility] CO2 26 21 - 32 mmol/L 11/04/2018 1:02 PM [facility] Glucose 122(H) 74 - 106 mg/dL 11/04/2018 1:02 PM [facility] BUN 20(H) 7.0 - 18.0 mg/dL 11/04/2018 1:02 PM [facility] Creatinine 0.96 0.70 - 1.30 mg/dL 11/04/2018 1:02 PM [facility] Calcium 9.3 8.5 - 10.1 mg/dL 11/04/2018 1:02 PM MAPPING SUPERVISOR [facility] Creatinine Based eGFR >60 11/04/2018 1:02 PM MAPPING SUPERVISOR [facility] Comment: GFR REFERENCE RANGE: >60 mL/min/1.73m2 -- An eGFR of > than, or = to 60, may indicate normal renal function or mildly decreased GFR. EGFR /Karla n >60 11/04/2018 1:02 PM MAPPING SUPERVISOR [facility] Comment: -- An eGFR of > than, or = to 60, may indicate normal renal function or mildly decreased GFR. Serum specimen (specimen) 11/04/2018 11:45 AM MAPPING SUPERVISOR 11/04/2018 12:23 PM MAPPING SUPERVISOR Lacey Perdue MD LAB BLOOD ORDERABLES Final R esult [facility] [address] [place] [address] * (ABNORMAL) Vancomycin, trough (11/04/2018 11:45 AM MAPPING SUPERVISOR) Vancomycin Trough 10.1(H) 5.0 - 10.0 mcg/mL 11/04/2018 1:02 PM MAPPING SUPERVISOR [facility] Serum specimen (specimen) 11/04/2018 11:45 AM MAPPING SUPERVISOR 11/04/2018 12:23 PM MAPPING SUPERVISOR [facility] Lacey Perdue MD LAB BLOOD ORDERABLES Final R esult [facility] [address] [place] [address] documented in this encounter Visit Diagnoses Diagnosis Encounter for long-term (current) use of antibiotics Primary localized osteoarthrosis Primary localized osteoarthrosis, unspecified site documented in this encounter Care Teams Frozen Food Selector Relationship Specialty Start Date End Date Coco Leos PA-C [address] [place] [address] PCP - General Physician Strategic Planning Specialist 10/25/17 11/24/18 Denny Dey DO [address] [place] [address] Referring Physician Orthopedic Surgery 06/28/18 9 Lacey Perdue MD [address] [phone] Referring Physician Infectious Diseases 06/28/18 documented as of this encounter
--- OUTSIDE RECORDS SUMMARY | 2024-11-23 10:19 | XMS_ITS | Encounter Summary ---
Author Organization [employer] Address [address] [place] [address] Care Team Providers Care Tail Board Worker Name Role Phone Denny Dey DO Unavailable [phone] Lacey Perdue MD Unavailable Leonard Jasso APRN Primary Care Provide r Reason for Visit * Reason Onset Date Comments Medication Refill 04/03/2019 Encounter Details Date Type Department Care Team (Late st Contact Info) Description 04/03/2019 Refill [facility] [address] [place] [address] [address] [place] [address] Social History Tobacco Use Types [...] 10/25/2017 2:00 PM Deonna Padilla, DIRECTOR OF PLAYER PERSONNEL * Do you have serious difficulty walking or climbing stairs? (5 years old or older) Answer Date of Assessment Author No 10/25/2017 2:00 PM Deonna Padilla, DIRECTOR OF PLAYER PERSONNEL * Do you have difficulty dressing or bathing? (5 years old or older) Answer Date of Assessment Author No 10/25/2017 2:00 PM Deonna Padilla, DIRECTOR OF PLAYER PERSONNEL * Because of a physical, mental, or emotional condition, do you have difficulty doing errands alone such as visiting a doctor's office or shopping? (15 years old or older) Answer Date of Assessment Author No 10/25/2017 2:00 PM Deonna Padilla, DIRECTOR OF PLAYER PERSONNEL documented as of this encounter Mental Status [...] on filedocumented in this encounter Care Teams Tail Board Worker Relationship Specialty Start Date End Date Leonard Jasso APRN [address] [place] [address] PCP - General Family Medicine 11/25/18 08/14/19 Denny Dey DO Referring Physician Orthopedic Surgery 06/28/18 9 Lacey Perdue MD [address] [phone] Referring Physician Infectious Diseases 06/28/18 documented as of this encounter
--- OUTSIDE RECORDS SUMMARY | 2024-11-23 10:19 | XMS_ITS | Encounter Summary ---
Author Organization [employer] Address [address] [place] [address] Care Team Providers Care Speech Therapist Early Intervention Name Role Phone Denny Dey DO Unavailable [phone] Lacey Perdue MD Unavailable Leonard Jasso APRN Primary Care Provide r Encounter Details Date Type Department Care Team (Latest Contact Info) Description 12/19/2018 8:50 AM COATER OPERATOR - 12/19/2018 11:59 PM COATER OPERATOR Hospital Encounter [facility] [address] [place] [address] 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 [...] Diagnosis Comments PSA Routine 12/19/2018 8:50 AM COATER OPERATOR 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 documented in this encounter Results * PSA (12/19/2018 8:50 AM COATER OPERATOR) PSA 0.29 0.00 - 4.00 ng/mL 12/19/2018 6:20 PM COATER OPERATOR [facility] Serum specimen (specimen) 12/19/2018 8:50 AM COATER OPERATOR 12/19/2018 5:09 PM COATER OPERATOR Leonard Jasso APRN LAB BLOOD ORDERABLES Final Result [facility] [address] [place] [address] documented in this encounter Visit Diagnoses Diagnosis 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 Nodular prostate with urinary obstruction documented in this encounter Care Teams Speech Therapist Early Intervention Relationship Specialty Start Date End Date Leonard Jasso APRN [address] [place] [address] PCP - General Family Medicine 11/25/18 08/14/19 Denny Dey DO Referring Physician Orthopedic Surgery 06/28/18 9 Lacey Perdue MD [address] [phone] Referring Physician Infectious Diseases 06/28/18 documented as of this encounter
--- OUTSIDE RECORDS SUMMARY | 2024-11-23 10:19 | XMS_ITS | Encounter Summary ---
Author Organization [employer] Address [address] [place] [address] Care Team Providers Care Mold Worker Name Role Phone Denny Dey DO Unavailable [phone] Lacey Perdue MD Unavailable Leonard Jasso APRN Primary Care Provide r Reason for Visit * Reason Onset Date Comments Colonoscopy 12/02/2018 I attempted to c ontact patient regarding his upcoming Colonoscopy. Encounter Details Date Type Department Care Team ([facility] Contact Info) Description 12/02/2018 Telephone [facility] Surgery [address] [facility], [address] [place] [address] Zenaida Clifton, RN [address] [place] [address] [place] [phone] Colonoscopy (I attempted to contact patient [...] of Assessment Author No 10/25/2017 2:00 PM SURVEY METHODOLOGIST Galvan, Am y S, J2EE ENGINEER * Are you blind or do you have serious difficulty seeing, even when wearing glasses? Answer Date of Assessment Author No 10/25/2017 2:00 PM SURVEY METHODOLOGIST Galvan, Am y S, J2EE ENGINEER * Do you have serious difficulty walking or climbing stairs? (5 years old or older) Answer Date of Assessment Author No 10/25/2017 2:00 PM SURVEY METHODOLOGIST Galvan, Am y S, J2EE ENGINEER * Do you have difficulty dressing or bathing? (5 years old or older) Answer Date of Assessment Author No 10/25/2017 2:00 PM SURVEY METHODOLOGIST Galvan, Nessa my S, J2EE ENGINEER * Because of a physical, mental, or emotional condition, do you have difficulty doing errands alone such as visiting a doctor's office or shopping? (15 years old or older) Answer Date of Assessment Author No 10/25/2017 2:00 PM SURVEY METHODOLOGIST Galvan, Am y S, J2EE ENGINEER documented as of this encounter Mental Status * Because of a physical, mental, or emotional condition, do you have serious difficulty concentrating, remembering, or making decisions? (5 years old or older) Answer Entry Date Author No 10/25/2017 2:00 PM SURVEY METHODOLOGIST Galvan, Am y S, J2EE ENGINEER documented in this encounter Miscellaneous Notes * Telephone Encounter - Zenaida Clifton RN - 12/02/2018 11:31 AM SURVEY METHODOLOGIST Pt called back for date/time of colonoscopy. He stated Wednesday this week would work fine for him.He will be coming to [place] this afternoon to bean picker his prep. EY METHODOLOGIST * Telephone Encounter - Zenaida Clifton RN - 12/02/2018 10:03 AM SURVEY METHODOLOGIST I attempted to contact the patient to discuss his upcoming Colonoscopy. I had advised him I would call him with date/time when precert was complete. I left a message on his answering machine to call me as soon as convenient. EY METHODOLOGIST documented in this encounter Plan of Treatment Not on file documented as of this encounter Goals Goal Patient Goal Type Associated Problems Recent Progress Patient-Stated? Author Blood Pressure < 140/90 Blood Pressure 134/86(2022 2:25 PM CDT) No Leonard Jasso APRN documented as of this encounter Visit Diagnoses Not on filedocumented in this encounter Care Teams Mold Worker Relationship Specialty Start Date End Date Leonard Jasso APRN [address] [place] [address] PCP - General Family Medicine 11/25/18 08/14/19 Denny Dey DO Referring Physician Orthopedic Surgery 06/28/18 9 Lacey Perdue MD [address] [phone] Referring Physician Infectious Diseases 06/28/18 documented as of this encounter
--- OUTSIDE RECORDS SUMMARY | 2024-11-23 10:19 | XMS_ITS | Encounter Summary ---
Author Organization [employer] Address [address] [place] [address] Care Team Providers Care Chauffeur Motorbus Name Role Phone Denny Dey DO Unavailable Lacey Perdue MD Unavailable Leonard Jasso APRN Primary Care Provide r Reason for Visit * Reason Comments Follow-up wound right foot Encounter Details Date Type Department Care Team (Late st Contact Info) Description 03/03/2019 2:30 PM CDT Office Visit [address] [phone] Leonard Jasso APRN [address] [place] [phone] Chronic bilateral low back pain with left-sided [...] presents with ??? Follow-up wound right foot [address] [address] Dept: [phone] Dept Loc: [phone] Loc Date: 03/03/2019 Name: Edilberto Hawley : [...] site documented in this encounter Care Teams Chauffeur Motorbus Relationship Specialty Start Date End Date Leonard Jasso APRN [address] [place] [address] PCP - General Family Medicine 11/25/18 08/14/19 Denny Dey DO Referring Physician Orthopedic Surgery 06/28/18 9 Lacey Perdue MD [address] [phone] Referring Physician Infectious Diseases 06/28/18 documented as of this encounter
--- OUTSIDE RECORDS SUMMARY | 2024-11-23 10:19 | XMS_ITS | Encounter Summary ---
Author Organization [employer] Address [address] [place] [address] Care Team Providers Care Carbon Paper Coating Machine Setter Name Role Phone Denny Dey DO Unavailable Lacey Perdue MD Unavailable Leonard Jasso APRN Primary Care Provide r Leonard Jasso APRN Primary Care Provide r Reason for Visit * Reason Comments Follow-up pt is folllowing up on Right Ankle Pain Left Wrist Pain Encounter Details Date Type Department Care Team (Late st Contact Info) Description 01/31/2019 2:00 PM CDT Office Visit [address] [phone] Leonard Jasso APRN [address] [place] [phone] Open wound of ankle with complication, right, [...] Author No 10/25/2017 2:00 PM Deonna Padilla, FISH HOUSE WORKER * Are you blind or do you have serious difficulty seeing, even when wearing glasses? Answer Date of Assessment Author No 10/25/2017 2:00 PM Deonna Padilla, FISH HOUSE WORKER * Do you have serious difficulty walking or climbing stairs? (5 years old or older) Answer Date of Assessment Author No 10/25/2017 2:00 PM Deonna Padilla, FISH HOUSE WORKER * Do you have difficulty dressing or bathing? (5 years old or older) Answer Date of Assessment Author No 10/25/2017 2:00 PM Deonna Padilla, FISH HOUSE WORKER * Because of a physical, mental, or emotional condition, do you have difficulty doing errands alone such as visiting a doctor's office or shopping? (15 years old or older) Answer Date of Assessment Author No 10/25/2017 2:00 PM Deonna Padilla, FISH HOUSE WORKER documented as of this encounter Mental Status * Because of a physical, mental, or emotional condition, do you have serious difficulty concentrating, remembering, or making decisions? (5 years old or older) Answer Entry Date Author No 10/25/2017 2:00 PM Deonna Padilla, FISH HOUSE WORKER documented in this encounter Patient Instructions [...] on Right Ankle Pain Left Wrist Pain [address] [address] Dept: [phone] Dept Loc: [phone] Loc Date: 01/31/2019 Name: Edilberto Person [place] [...] on: 12/25/2019 11:53 AM Modules accepted: Orders STRIAL SPECIALIST documented in this encounter Plan of [...] wrist documented in this encounter Care Teams Carbon Paper Coating Machine Setter Relationship Specialty Start Date End Date Leonard Jasso APRN [address] [place] [address] PCP - General Family Medicine 11/25/18 08/14/19 Leonard Jasso APRN [address] [facility] [address] [place] [address] PCP - General Family Medicine 08/15/19 04/30/21 Denny Dey DO Referring Physician Orthopedic Surgery 06/28/18 9 Lacey Perdue MD [address] [phone] Referring Physician Infectious Diseases 06/28/18 documented as of this encounter
--- OUTSIDE RECORDS SUMMARY | 2024-11-23 10:19 | XMS_ITS | Encounter Summary ---
Author Organization [employer] Address [address] [place] [address] Care Team Providers Care Station Installation Supervisor Name Role Phone RobertbetoTatianae Katt WISE Primary Care Provider [phone] Denny Dey DO Unavailable [phone] Lacey Perdue MD Unavailable [phone] Leonard Jasso APRN Primary Care Provide r Reason for Visit * Reason Comments Medication Refill Encounter Details Date Type Department Care Team (Late st Contact Info) Description 11/03/[address] [address] Leonard Jasso APRN [address] [place] [address] Social History Tobacco Use Types Packs/Day [...] of Assessment Author No 10/25/2017 2:00 PM CAPACITY ANALYST Deonna Galvan, GEORGE * Are you blind or do you have serious difficulty seeing, even when wearing glasses? Answer Date of Assessment Author No 10/25/2017 2:00 PM Deonna Padilla S, PEARL GLUE OPERATOR * Do you have serious difficulty walking or climbing stairs? (5 years old or older) Answer Date of Assessment Author No 10/25/2017 2:00 PM JOHN Galvan Am y S, PEARL GLUE OPERATOR * Do you have difficulty dressing or bathing? (5 years old or older) Answer Date of Assessment Author No 10/25/2017 2:00 PM Deonna Padilla S, PEARL GLUE OPERATOR * Because of a physical, mental, or emotional condition, do you have difficulty doing errands alone such as visiting a doctor's office or shopping? (15 years old or older) Answer Date of Assessment Author No 10/25/2017 2:00 PM Deonna Padilla, PEARL GLUE OPERATOR documented as of this encounter Mental Status * Because of a physical, mental, or emotional condition, do you have serious difficulty concentrating, remembering, or making decisions? (5 years old or older) Answer Entry Date Author No 10/25/2017 2:00 PM Deonna Padilla, PEARL GLUE OPERATOR documented in this encounter Plan of Treatment Not on file documented as of this encounter Goals Goal Patient Goal Type Associated Problems Recent Progress Patient-Stated? Author Blood Pressure < 140/90 Blood Pressure 134/86(2022 2:25 PM CDT) No Leonard Jasso APRN documented as of this encounter Visit Diagnoses Not on filedocumented in this encounter Care Teams Station Installation Supervisor Relationship Specialty Start Date End Date Coco Leos PA-C [address] [place] [address] PCP - General Physician Car Rental Sales Assistant 10/25/17 11/24/18 Leonard Jasso APRN [address] [place] [address] PCP - General Family Medicine 11/25/18 08/14/19 Denny Dey DO [address] [place], [place] [address] Referring Physician Orthopedic Surgery 06/28/18 9 Lacey Perdue MD [facility] [address] [phone] Referring Physician Infectious Diseases 06/28/18 documented as of this encounter
--- OUTSIDE RECORDS SUMMARY | 2024-11-23 10:19 | XMS_ITS | Encounter Summary ---
Author Organization [employer] Address [address] [place] [address] Care Team Providers Care Landfill Gas Technician Name Role Phone Denny Dey DO Unavailable [phone] Lacey Perdue MD Unavailable [phone] Leonard Jasso APRN Primary Care Provide r Leonard Jasso APRN Primary Care Provide r Reason for Visit * Reason Comments Cough Needs work note, stephane st congestion, burning eyes, sinus drainage Encounter Details Date Type Department Care Team (Late st Contact Info) Description 02/17/2019 3:00 PM CDT Office Visit [address] [phone] Leonard Jasso APRN [address] [place] [address] Viral URI with cough (Primary Dx) [...] Author No 10/25/2017 2:00 PM Deonna Padilla, PRISM MEASURER * Are you blind or do you have serious difficulty seeing, even when wearing glasses? Answer Date of Assessment Author No 10/25/2017 2:00 PM Deonna Padilla, PRISM MEASURER * Do you have serious difficulty walking or climbing stairs? (5 years old or older) Answer Date of Assessment Author No 10/25/2017 2:00 PM Deonna Padilla, PRISM MEASURER * Do you have difficulty dressing or bathing? (5 years old or older) Answer Date of Assessment Author No 10/25/2017 2:00 PM Deonna Padilla, PRISM MEASURER * Because of a physical, mental, or emotional condition, do you have difficulty doing errands alone such as visiting a doctor's office or shopping? (15 years old or older) Answer Date of Assessment Author No 10/25/2017 2:00 PM Deonna Padilla PRISM MEASURER documented as of this encounter Mental Status * Because of a physical, mental, or emotional condition, do you have serious difficulty concentrating, remembering, or making decisions? (5 years old or older) Answer Entry Date Author No 10/25/2017 2:00 PM Deonna Padilla PRISM MEASURER documented in this encounter Patient Instructions * [...] note, chest congestion, burning eyes, sinus drainage [address] [address] Dept: [phone] Dept Loc: [phone] Loc Date: 02/17/2019 Name: Edilberto Hawley : [...] site documented in this encounter Care Teams Landfill Gas Technician Relationship Specialty Start Date End Date Leonard Jasso APRN [facility] [place], [place] [address] PCP - General Family Medicine 11/25/18 08/14/19 [address] Jasso [address]N [address] [facility] [address] [place], [place] [phone] PCP - General Family Medicine 08/15/19 04/30/21 Denny Dey DO Referring Physician Orthopedic Surgery 06/28/18 9 Lacey Perdue MD [address] [phone] Referring Physician Infectious Diseases 06/28/18 documented as of this encounter
--- OUTSIDE RECORDS SUMMARY | 2024-11-23 10:19 | XMS_ITS | Encounter Summary ---
Author Organization [employer] Address [address] [place] [address] Care Team Providers Care Conche Operator Name Role Phone Denny Dey DO Unavailable [phone] Lacey Perdue MD Unavailable Leonard Jasso APRN Primary Care Provide r Reason for Visit * Reason Onset Date Comments Medication Refill 12/02/2018 Encounter Details Date Type Department Care Team (Late st Contact Info) Description 12/02/2018 Refill [facility] [address] [place] [address] [address] [place] [address] Social History Tobacco Use Types [...] of Assessment Author No 10/25/2017 2:00 PM SQUEEGEE OPERATOR Deonna Galvan, ENGINE ROOM HELPER * Do you have serious difficulty walking or climbing stairs? (5 years old or older) Answer Date of Assessment Author No 10/25/2017 2:00 PM SQUEEGEE OPERATOR Deonna Galvan, ENGINE ROOM HELPER * Do you have difficulty dressing or bathing? (5 years old or older) Answer Date of Assessment Author No 10/25/2017 2:00 PM SQUEEGEE OPERATOR Deonna Galvan, ENGINE ROOM HELPER * Because of a physical, mental, or emotional condition, do you have difficulty doing errands alone such as visiting a doctor's office or shopping? (15 years old or older) Answer Date of Assessment Author No 10/25/2017 2:00 PM SQUEEGEE OPERATOR Deonna Galvan, ENGINE ROOM HELPER documented as of this encounter Mental Status * Because of a physical, mental, or emotional condition, do you have serious difficulty concentrating, remembering, or making decisions? (5 years old or older) Answer Entry Date Author No 10/25/2017 2:00 PM Deonna Padilla, ENGINE ROOM HELPER documented in this encounter Miscellaneous Notes * Telephone Encounter - Brittany Clemons CMA - 12/02/2018 2:22 PM SQUEEGEE OPERATOR ----- Message from Mandi Padilla sent at 12/02/2018 2:07 PM SQUEEGEE OPERATOR ----- Contact: Patient Patient called for his refill of Oxycodone & Morphine which come due 12/03/2018. Please call patient when prepared for diamond picker. Thank you Yani S EGEE OPERATOR documented in this encounter Plan of Treatment Not on file documented as of this encounter Goals Goal Patient Goal Type Associated Problems Recent Progress Patient-Stated? Author Blood Pressure < 140/90 Blood Pressure 134/86(2022 2:25 PM CDT) No Leonard Jasso APRN documented as of this encounter Visit Diagnoses Not on filedocumented in this encounter Care Teams Conche Operator Relationship Specialty Start Date End Date Leonard Jasso APRN [address] [place] [address] PCP - General Family Medicine 11/25/18 08/14/19 Denny Dey DO Referring Physician Orthopedic Surgery 06/28/18 9 Lacey Perdue MD [address] [phone] Referring Physician Infectious Diseases 06/28/18 documented as of this encounter
--- OUTSIDE RECORDS SUMMARY | 2024-11-23 10:19 | XMS_ITS | Encounter Summary ---
Author Organization [employer] Address [address] [place] [address] Care Team Providers Care Batt Packer Name Role Phone Coco Leos PA-C Primary Care Provider [phone] Denny Dey DO Unavailable [phone] Lacey Perdue MD Unavailable Reason for Visit * Reason Comments Follow-up Encounter Details Date Type Department Care Team (Late st Contact Info) Description 11/18/2018 9:45 AM COILED TUBING SUPERVISOR Office Visit [address] [phone] Leonard Jasso, CONTACT LENS BLOCKER [address] [place], [place] [phone] Staphylococcal arthritis of right ankle (HCC) (Primary [...] Comments Blood Pressure 118/78 11/18/2018 9:34 AM COILED TUBING SUPERVISOR Pulse 73 11/18/2018 9:34 AM COILED TUBING SUPERVISOR Temperature 36.4 ??C (97.5 ??F) 11/18/2018 9:34 AM CS T Respiratory Rate - - Oxygen Saturation 97% 11/18/2018 9:34 AM COILED TUBING SUPERVISOR Inhaled Oxygen Concentration - - Weight 89 kg (196 lb 4.8 oz) 11/18/2018 9:34 AM COILED TUBING SUPERVISOR Height 180.3 cm (5' 10.98 ) 11/18/2018 9:[address] Body Mass Index 27.39 11/18/2018 9:34 AM COILED TUBING SUPERVISOR documented in this encounter Functional Status * Are you deaf or do you have serious difficulty hearing? Answer Date of Assessment Author No 10/25/2017 2:00 PM COILED TUBING SUPERVISOR Deonna Galvan y S, IT SUPPORT SPECIALIST * Are you blind or do you have serious difficulty seeing, even when wearing glasses? Answer Date of Assessment Author No 10/25/2017 2:00 PM COILED TUBING SUPERVISOR Deonna Galvan y S, IT SUPPORT SPECIALIST * Do you have serious difficulty walking or climbing stairs? (5 years old or older) Answer Date of Assessment Author No 10/25/2017 2:00 PM COILED TUBING SUPERVISOR Deonna Galvan y S, IT SUPPORT SPECIALIST * Do you have difficulty dressing or bathing? (5 years old or older) Answer Date of Assessment Author No 10/25/2017 2:00 PM COILED TUBING SUPERVISOR Cole Am y S, IT SUPPORT SPECIALIST * Because of a physical, mental, or emotional condition, do you have difficulty doing errands alone such as visiting a doctor's office or shopping? (15 years old or older) Answer Date of Assessment Author No 10/25/2017 2:00 PM COILED TUBING SUPERVISOR Cole Am y S, IT SUPPORT SPECIALIST documented as of this encounter Mental Status * Because of a physical, mental, or emotional condition, do you have serious difficulty concentrating, remembering, or making decisions? (5 years old or older) Answer Entry Date Author No 10/25/2017 2:00 PM JOHN Galvan Am y S, IT SUPPORT SPECIALIST documented in this encounter Patient Instructions * Patient Instructions* Leonard Jasso APNP - 11/18/2018 9:45 AM COILED TUBING SUPERVISOR Follow up in one month for referral to Surgeon at [facility] for colonoscopy. History of polyps and you need proper monitoring. Continue current treatment of right ankle wound and follow directions of wound clinic exactly. Keepsite clean and avoid picking. ED TUBING SUPERVISOR documented in this encounter Progress Notes * Leonard Jasso APNP - 11/18/2018 9:45 AM CST Chief Complaint Patient presents with ??? Follow-up Subjective: Patient ID: Edilberto Hawley is a 63 y.o. male. Pt. presents for follow up. Patient was recently seen by Dr. Robles, [place] alternative financing specialist. Patient's current concerns/issues at that time [...] one month for referral to Surgeon at [facility] for colonoscopy. History of polyps and you need proper monitoring. Continue current treatment of right ankle wound and follow directions of wound clinic exactly. Keepsite clean and avoid picking. ED TUBING SUPERVISOR documented in this encounter Plan of Treatment Not on file documented as of this encounter Goals Goal Patient Goal Type Associated Problems Recent Progress Patient-Stated? Author Blood Pressure < 140/90 Blood Pressure 134/86(2022 2:25 PM CDT) No Wasielewski, Leonard W, CONTACT LENS BLOCKER documented as of this encounter Visit Diagnoses Diagnosis Staphylococcal arthritis of right ankle- Primary Encounter for screening colonoscopy Special screening for malignant neoplasms, colon documented in this encounter Care Teams Batt Packer Relationship Specialty Start Date End Date Coco Leos PA-C [address] [place] [address] PCP - General Physician Chief Operating Engineer 10/25/17 11/24/18 Denny Dey DO [address] [place] [address] Referring Physician Orthopedic Surgery 06/28/18 9 Lacey Perdue MD [address] [phone] Referring Physician Infectious Diseases 06/28/18 documented as of this encounter
--- OUTSIDE RECORDS SUMMARY | 2024-11-23 10:19 | XMS_ITS | Encounter Summary ---
Author Organization [employer] Address [address] [place] [address] Care Team Providers Care Status Controller Name Role Phone Denny Dey DO Unavailable Lacey Perdue MD Unavailable Leonard Jasso APRN Primary Care Provide r Reason for Visit * Auth/Cert Specialty Diagnoses / Procedures Referred By Ceilne t Referred To Contact Diagnoses PERSONAL HISTORY OF COLON POLYPS Procedures ENDO - COLONOSCOPY; BIOPSY; POLYPECTOMY Referral ID Status Reason Start Date Expiration Date Visits Re quested Visits Authorized [id number] 1 1 Encounter Details Date Type Department Care Team (Latest Contact Info) Description 12/07/2018 7:34 AM CORNER BEAD OPERATOR - 12/07/2018 10:34 AM CORNER BEAD OPERATOR Hospital Encounter [facility] [address] [place] [address] Siddhartha Loyd MD [address] [place], [place] [id number] Discharge Disposition: Home - Discharge to Home [...] Comments Blood Pressure 114/72 12/07/2018 10:12 AM CORNER BEAD OPERATOR Pulse 60 12/07/2018 10:12 AM CORNER BEAD OPERATOR Temperature 36.8 ??C (98.3 ??F) 12/07/2018 10:[address] Respiratory Rate 18 12/07/2018 10:12 AM CORNER BEAD OPERATOR Oxygen Saturation 97% 12/07/2018 10:12 AM CORNER BEAD OPERATOR Inhaled Oxygen Concentration - - Weight 89.4 kg (197 lb) 12/07/2018 7:50 AM CORNER BEAD OPERATOR Height 180.3 cm (5' 11 ) 12/07/2018 7:50 AM CORNER BEAD OPERATOR Body Mass Index 27.48 12/07/2018 7:50 AM CORNER BEAD OPERATOR documented in this encounter Functional Status [...] Author No 10/25/2017 2:00 PM Deonna Padilla DATA STEWARD * Because of a physical, mental, or [...] Physical Exam, Review of Systems or Plan. ER BEAD OPERATOR * Siddhartha Loyd MD - 12/07/2018 8:45 [...] Leonard Jasso, * ?? This is a [place] patient. ? Chief Complaint: Chief Complaint Patient [...] nail ??? Shoulder injury ? Substance abuse ([facility]) ? cocaine, crystal meth nothing since 1996 [...] ??? ALT 11/14/2018 63 ? ? EGFR Non-/Liberian 11/14/2018 >60 ? ? EGFR /Liberian 11/14/2018 >60 ??? Vancomycin Trough 11/14/2018 10.8* ??? CRP 11/14/2018 1.30* Hospital Outpatient Visit on 11/11/2018 Component Date Value ??? Sodium 11/11/2018 137 ??? Potassium 11/11/2018 4.2 ??? Chloride 11/11/2018 102 ??? CO2 11/11/2018 26 ??? Glucose 11/11/2018 162* ??? BUN 11/11/2018 13 ??? Creatinine, Serum 11/11/2018 0.93 ??? Calcium 11/11/2018 9.0 ? ? EGFR Non-/Liberian 11/11/2018 >60 ? ? EGFR /Liberian 11/11/2018 >60 ??? Vancomycin Trough 11/11/2018 7.1 [...] ??? ALT 11/07/2018 51 ? ? EGFR Non-/Liberian 11/07/2018 >60 ? ? EGFR /Liberian 11/07/2018 >60 ??? Sedimentation Rate 11/07/2018 25* ??? Vancomycin Trough 11/07/2018 9.9 Hospital Outpatient Visit on 11/04/2018 Component Date Value ??? Vancomycin Trough 11/04/2018 10.1* ??? Sodium 11/04/2018 141 ??? Potassium 11/04/2018 4.0 ??? Chloride 11/04/2018 106 ??? CO2 11/04/2018 26 ??? Glucose 11/04/2018 122* ??? BUN 11/04/2018 20* ??? Creatinine, Serum 11/04/2018 0.96 ??? Calcium 11/04/2018 9.3 ? ? EGFR Non-/Liberian 11/04/2018 >60 ? ? EGFR /Liberian 11/04/2018 >60 ? Impression and Plan: 63-year-old [...] polyps. ? Siddhartha Montgomery. MD Evert, FACS ER BEAD OPERATOR documented in this encounter Procedure Notes * Siddhartha Loyd MD - 12/07/2018 9:51 AM CST [facility] COLONOSCOPY PROCEDURE NOTE @SDATE@ Patient Name : Edilberto Hawley Referring Physician:TIFFANI Galeano Date of Surgery: @@ Surgeon: Siddhartha Loyd MD Staff: @[facility]@ Type of anesthesia: MAC (Managed Anesthesia [...] Recommendation: Follow up with me. 1 week. ER BEAD OPERATOR documented in this encounter OR Notes * Op Note - Siddhartha Loyd MD - 12/08/2018 10:18 AM CST [facility] COLONOSCOPY PROCEDURE NOTE ? Patient Name : Edilberto Hawley Referring Physician:TIFFANI Galeano ?? Date of Surgery: 12-07-18 ?? Surgeon: Siddhartha Loyd MD Staff: @[facility]@ Type of anesthesia: MAC (Managed Anesthesia [...] Recommendation: Follow up with me. 1 week. ER BEAD OPERATOR documented in this encounter Plan of Treatment Not on file documented as of this encounter Goals Goal Patient Goal Type Associated Problems Recent Progress Patient-Stated? Author Blood Pressure < 140/90 Blood Pressure 134/86(2022 2:25 PM CDT) No Leonard Jasso, WALKING DRAGLINE OILER documented as of this encounter Procedures Procedure Name Priority Date/Time Associated Diagnosis Comments PATHOLOGY/TISSUE SPECIMEN Routine 12/07/2018 9:35 AM CORNER BEAD OPERATOR Endo - Colonoscopy 12/07/2018 9: 10 AM CORNER BEAD OPERATOR PERSONAL HISTORY OF COLON POLYPS documented in this encounter Results * Pathology/Tissue Specimen (12/07/2018 9:35 AM CORNER BEAD OPERATOR) Histology Tracking See scanned image in media production manager. 12/14/2018 10:44 [address] COR[address] [facility] Pathology (qualifier value) POLYP / Unknown 12/07/2018 10:11 AM CORNER BEAD OPERATOR Pathology (qualifier value) POLYP / Unknown 12/07/2018 10:12 AM CORNER BEAD OPERATOR us Siddhartha Loyd MD PATHOLOGY/CYTOLOGY ORDERABLES F inal Result [facility] [address] [place] [address] documented in this encounter Visit Diagnoses Not on filedocumented in this encounter Administered Medications Inactive Administered Medications - up to 3 most recent administrations Medication Order MAR Action Action Date Dose Rate Site lactated ringers infusion at 100 mL/hr, Intravenous, CONTINUOUS, Starting on Wed12/07/18 at 0800, For 60 days, Pre-op New Bag 12/07/2018 8:09 AM CORNER BEAD OPERATOR 100 mL/hr documented in this encounter Active and Recently Administered Medications Times are shown in CORNER BEAD OPERATOR. Continuous Medication Order 12/05/2018 12/06/2018 12/07/2018 lactated ringers infusion at 100 mL/hr, Intravenous, CONTINUOUS, Starting on Wed12/07/18 at 0800, For 60 days, Pre-op 0809 (New Bag - Prov ider: Iman Barrios LPN) documented in this encounter Care Teams Status Controller Relationship Specialty Start Date End Date Leonard Jasso APRN [address] [place] [address] PCP - General Family Medicine 11/25/18 08/14/19 Denny Dey DO Referring Physician Orthopedic Surgery 06/28/18 9 Lacey Perdue MD [address] [phone] Referring Physician Infectious Diseases 06/28/18 documented as of this encounter
--- OUTSIDE RECORDS SUMMARY | 2024-11-23 10:19 | XMS_ITS | Encounter Summary ---
Author Organization [employer] Address [address] [place] [address] Care Team Providers Care Combination Man Name Role Phone Coco Leos PA-C Primary Care Provider [phone] Denny Dey DO Unavailable [phone] Lacey Perdue MD Unavailable [phone] Encounter Details Date Type Department Care Team (Latest Contact Info) Description 11/11/2018 11:00 AM INTERIM CONTROLLER - 11/11/2018 11:59 PM INTERIM CONTROLLER Hospital Encounter [facility] [address] [place] [phone] Encounter for long-term (current) use of antibiotics; [...] of Assessment Author No 10/25/2017 2:00 PM INTERIM CONTROLLER Galvan, Am y S, LAW FIRM PARTNER * Do you have serious difficulty walking [...] VANCOMYCIN, TROUGH Routine 11/11/2018 11 :00 AM INTERIM CONTROLLER Encounter for long-term (current) use of antibiotics Primary localized osteoarthrosis BASIC METABOLIC PANEL Routine 11/11/2018 11:00 AM INTERIM CONTROLLER Encounter for long-term (current) use of antibiotics Primary localized osteoarthrosis documented in this encounter Results * Vancomycin, trough (11/11/2018 11:00 AM INTERIM CONTROLLER) Vancomycin Trough 7.1 5.0 - 10.0 mcg/mL 11/11/2018 12:42 PM INTERIM CONTROLLER [facility] [employer] [facility] Serum specimen (specimen) 11/11/2018 11:00 AM INTERIM CONTROLLER 11/11/2018 12:02 PM INTERIM CONTROLLER us Lacey Perdue MD LAB BLOOD ORDERABLES Final R esult [facility] [employer] [facility] [address] [place], [place] * (ABNORMAL) Basic metabolic panel (11/11/2018 11:00 AM INTERIM CONTROLLER) Sodium 137 136 - 145 mmol/L 11/11/2018 12:37 PM INTERIM CONTROLLER [facility] Potassium 4.2 3.5 - 5.1 mmol/L 11/11/2018 12:[address] [facility] Chloride 102 98 - 107 mmol/L 11/11/2018 12:[address] [facility] CO2 26 21 - 32 mmol/L 11/11/2018 12:[address] [facility] Glucose 162(H) 74 - 106 mg/dL 11/11/2018 12:[address] [email or web address] BUN 13 7.0 - 18.0 mg/dL 11/11/2018 12:[address] [facility] Creatinine 0.93 0.70 - 1.30 mg/dL 11/11/2018 12:[address] [facility] [employer] [facility] Calcium 9.0 8.5 - 10.1 mg/dL 11/11/2018 12:[address] [facility] Creatinine Based eGFR >60 11/11/2018 12:[address] [facility] Comment: GFR REFERENCE RANGE: >60 mL/min/1.73m2 -- An eGFR of > than, or = to 60, may indicate normal renal function or mildly decreased GFR. EGFR /Karla n >60 11/11/2018 12:[address] [facility] Comment: -- An eGFR of > than, or = to 60, may indicate normal renal function or mildly decreased GFR. Serum specimen (specimen) 11/11/2018 11:00 AM INTERIM CONTROLLER 11/11/2018 12:02 PM [facility] us Lacey Perdue MD LAB BLOOD ORDERABLES Final R esult [facility] [address] [place], [place] documented in this encounter Visit Diagnoses Diagnosis Encounter for long-term (current) use of antibiotics Primary localized osteoarthrosis Primary localized osteoarthrosis, unspecified site documented in this encounter Care Teams Combination Man Relationship Specialty Start Date End Date Coco Leos PA-C [address] [place] [address] PCP - General Physician Lead Miner Blasting 10/25/17 11/24/18 Denny Dey DO [address] [address] Referring Physician Orthopedic Surgery 06/28/18 9 Lacey Perdue MD [address] [phone] Referring Physician Infectious Diseases 06/28/18 documented as of this encounter
--- OUTSIDE RECORDS SUMMARY | 2024-11-23 10:19 | XMS_ITS | Encounter Summary ---
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 Leonard Jasso APRN [facility] [place] [address] Phone: tel: fax: Sohan Leiva MD [address] [place] [address] Phone: tel: fax: Referral ID Status Reason Start Date Expiration Date V isits Requested Visits Authorized [id number] Closed Specialty Services Required 12/19/2018 12/19/2019 1 1 DESIGN INSTRUCTOR Reason for Visit * Reason Comments Follow-up Encounter Details Date Type Department Care Team (Late st Contact Info) Description 12/19/2018 8:15 AM WEB DESIGN INSTRUCTOR Office Visit [address] [address] Leonard Jasso, DECORATING MACHINE TENDER [address] [place] [address] Open wound of ankle with complication, right, [...] Comments Blood Pressure 118/70 12/19/2018 8:05 AM WEB DESIGN INSTRUCTOR Pulse 92 12/19/2018 8:05 AM WEB DESIGN INSTRUCTOR Temperature 36.8 ??C (98.3 ??F) 12/19/2018 8:05 AM CS T Respiratory Rate - - Oxygen Saturation 94% 12/19/2018 8:05 AM WEB DESIGN INSTRUCTOR Inhaled Oxygen Concentration - - Weight 92.3 kg (203 lb 8 oz) 12/19/2018 8:05 AM WEB DESIGN INSTRUCTOR Height 180.3 cm (5' 10.98 ) 12/19/2018 8:[address] Body Mass Index 28.4 12/19/2018 8:05 AM WEB DESIGN INSTRUCTOR documented in this encounter Functional Status * [...] of Assessment Author No 10/25/2017 2:00 PM WEB DESIGN INSTRUCTOR Deonna Galvan ARNP documented as of this encounter Mental Status * Because of a physical, mental, or emotional condition, do you have serious difficulty concentrating, remembering, or making decisions? (5 years old or older) Answer Entry Date Author No 10/25/2017 2:00 PM Deonna Padilla ARNP documented in this encounter Patient Instructions * Patient Instructions* Leonard Jasso APNP - 12/19/2018 8:15 AM WEB DESIGN INSTRUCTOR We will call you with time and [...] any drainage, fever, or sloughing of tissue. DESIGN INSTRUCTOR documented in this encounter Progress Notes * [...] are negative. Objective: BP 118/70 (BP Location: [facility] [place] Position: sitting, BP Cuff Size: Reg) [...] any drainage, fever, or sloughing of tissue. DESIGN INSTRUCTOR DESIGN INSTRUCTOR documented in this encounter Plan of [...] * Referral to Urology (12/20/2018) 12/20/2018 Narrative [facility] - 12/21/2018 1:24 PM WEB DESIGN INSTRUCTOR See Scanned Image us Leonard Jasso APRN OUTPATIENT REFERRAL O RDERABLES Final Result [facility] [address] [place], [place] * PSA (12/19/2018 8:50 AM WEB DESIGN INSTRUCTOR) PSA 0.29 0.00 - 4.00 ng/mL 12/19/2018 6:[address] [facility] Serum specimen (specimen) 12/19/2018 8:50 AM WEB DESIGN INSTRUCTOR 12/19/2018 5:09 PM WEB DESIGN INSTRUCTOR Leonard Jasso APRN LAB BLOOD ORDERABLES Final Result 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
--- OUTSIDE RECORDS SUMMARY | 2024-11-23 10:19 | XMS_ITS | Encounter Summary ---
Author Organization [facility] Address [address] [place] [address] Care Team Providers Care Pediatrician/Medical Doctor Name Role Phone Denny Dey DO Unavailable [phone] Lacey Perdue MD Unavailable [phone] Leonard Jasso APRN Primary Care Provide r Reason for Visit * Reason Onset Date Comments Concern of Cdiff 12/30/2018 Encounter Details Date Type Department Care Team (Late st Contact Info) Description 12/30/[address] [address] [address] [place] [address] Concern of Cdiff Social History [...] of Assessment Author No 10/25/2017 2:00 PM BUSINESS SUPPORT ASSOCIATE Deonna Galvan, GEORGE * Are you blind or do you have serious difficulty seeing, even when wearing glasses? Answer Date of Assessment Author No 10/25/2017 2:00 PM BUSINESS SUPPORT ASSOCIATE Deonna Galvan, RESIDENTIAL GREEN BUILDING DESIGNER * Do you have serious difficulty walking or climbing stairs? (5 years old or older) Answer Date of Assessment Author No 10/25/2017 2:00 PM Deonna Padilla, RESIDENTIAL GREEN BUILDING DESIGNER * Do you have difficulty dressing or bathing? (5 years old or older) Answer Date of Assessment Author No 10/25/2017 2:00 PM BUSINESS SUPPORT ASSOCIATE Deonna Galvan, RESIDENTIAL GREEN BUILDING DESIGNER * Because of a physical, mental, [...] Notes * Telephone Encounter - KaciAndresBrittany N, MACHINE OPERATORS - 12/30/2018 3:24 PM BUSINESS SUPPORT ASSOCIATE I tried to call patient to relay this information. I got his voicemail and left a very detailed message and tried to reassure him the odds of him catching her CDiff are low. I relayed Dylan's message verbatim, reassured him he is welcome to call back with any questions or concerns. ----- Message from TIFFANI Galeano sent at 12/30/2018 3:22 PM BUSINESS SUPPORT ASSOCIATE ----- Contact: Patient His [id number] probably developed C. difficile after taking antibiotics. [...] so upset. He was driving back from [employer]. Please contact patient with information on C-Diff or a plan of action if deemed necessary. Thank you Yani S NESS SUPPORT ASSOCIATE NESS SUPPORT ASSOCIATE documented in this encounter Plan of Treatment Not on file documented as of this encounter Goals Goal Patient Goal Type Associated Problems Recent Progress Patient-Stated? Author Blood Pressure < 140/90 Blood Pressure 134/86(2022 2:25 PM CDT) No Leonard Jasso APRN documented as of this encounter Visit Diagnoses Not on filedocumented in this encounter Care Teams Pediatrician/Medical Doctor Relationship Specialty Start Date End Date Leonard Jasso APRN [address] [place] [address] PCP - General Family Medicine 11/25/18 08/14/19 Denny Dey DO Referring Physician Orthopedic Surgery 06/28/18 9 Lacey Perdue MD [address] [phone] Referring Physician Infectious Diseases 06/28/18 documented as of this encounter
--- OUTSIDE RECORDS SUMMARY | 2024-11-23 10:19 | XMS_ITS | Encounter Summary ---
Author Organization [facility] Address [address] [place] [address] Care Team Providers Care General Medical Practitioner Name Role Phone Denny Dey DO Unavailable Lacey Perdue MD Unavailable [phone] David Concepcion APRN Primary Care Provide r David Concepcion APRN Primary Care Provide r Reason for Visit * Reason Comments Follow-up foot Back Pain Encounter Details Date Type Department Care Team (Late st Contact Info) Description 05/05/2019 3:45 PM CDT Office Visit [address] [id number] David Concepcion APRN [address] [place] [address] Chronic bilateral low back pain without [...] with ??? Follow-up foot ??? Back Pain [address] [address] Dept: [phone] Dept Loc: [phone] Loc Date: 05/05/2019 Name: Edilberto Durand : [...] AM T: ??08/18/2019 8:54 AM Report ID: [id number] Reading Location: ??[id number] Narrative 08/18/2019 8:54 AM CDT [address] [place] [address] Patient Name:EDILBERTO DURAND ?Accession Number: [id number] Patient ID Number:[id number] ?Approval Date: 08/18/2019 8:54 AM Date of [...] examinations are available to assess for change agent time.Bilateral facet arthropathy identified at the L4-5 and L5-S1 level. DISCS: Disc space narrowing with endplate hypertrophic change identified at the L2-3 level as well as the L4-5 and L5-S1 level. Procedure Note Dwain Mosqueda, DO - 08/18/[address] [place] [address] Patient Name:EDILBERTO DURAND Accession Number: [id number] Patient ID Number:[id number] Approval Date: 08/18/2019 8:54 AM Date of [...] comparison examinations are available to assessfor change agent time.Bilateral facet arthropathy identified at the L4-5 [...] Dwain Mosqueda D.O. BW: OVIDIO Report ID: [id number] Reading Location: [place] [address] David Concepcion APRN IMG DIAGNOSTIC IMAGIN G ORDERABLES Final Result documented in this encounter Visit Diagnoses Diagnosis Chronic bilateral low back pain without sciatica- Primary Closed wound Injury, other and unspecified, unspecified site Chronic bilateral low back pain without sciatica documented in this encounter Care Teams General Medical Practitioner Relationship Specialty Start Date End Date David Concepcion APRN [facility] [place], [place] [address] PCP - General Family Medicine 11/25/18 08/14/19 David Concepcion APRN [address] [facility] [address]50 [place] [address] PCP - General Family Medicine 08/15/19 04/30/21 Denny Dey DO Referring Physician Orthopedic Surgery 06/28/18 9 Lacey Perdue MD [address] [phone] Referring Physician Infectious Diseases 06/28/18 documented as of this encounter
--- OUTSIDE RECORDS SUMMARY | 2024-11-23 10:19 | XMS_ITS | Encounter Summary ---
Author Organization [facility] Address [address] [place] [address] Care Team Providers Care Marble Polisher Name Role Phone Denny Dey DO Unavailable [phone] Lacey Perdue MD Unavailable Leonard Jasso APRN Primary Care Provide r Reason for Visit * Reason Onset Date Comments Xray Only 03/09/2019 Encounter Details Date Type Department Care Team (Late st Contact Info) Description 03/09/[address] [address] [address] [place] [address] Xray Only Social History Tobacco [...] Author No 10/25/2017 2:00 PM Deonna Padilla, ACCOUNTING TEACHER * Do you have serious difficulty walking or climbing stairs? (5 years old or older) Answer Date of Assessment Author No 10/25/2017 2:00 PM Deonna Padilla, ACCOUNTING TEACHER * Do you have difficulty dressing or bathing? (5 years old or older) Answer Date of Assessment Author No 10/25/2017 2:00 PM Deonna Padilla, ACCOUNTING TEACHER * Because of a physical, mental, [...] and left a voicemail informing patient per Dlyan he needs an appointment. ----- Message from [...] that I would relay request. Please call [phone]. Thank you Yani Lucila documented in this encounter Plan of Treatment Not on file documented as of this encounter Goals Goal Patient Goal Type Associated Problems Recent Progress Patient-Stated? Author Blood Pressure < 140/90 Blood Pressure 134/86(2022 2:25 PM CDT) No Leonard Jasso APRN documented as of this encounter Visit Diagnoses Not on filedocumented in this encounter Care Teams Marble Polisher Relationship Specialty Start Date End Date Leonard Jasso APRN [address] [place] [address] PCP - General Family Medicine 11/25/18 08/14/19 Denny Dey DO Referring Physician Orthopedic Surgery 06/28/18 9 Lacey Perdue MD [address] [phone] Referring Physician Infectious Diseases 06/28/18 documented as of this encounter
--- OUTSIDE RECORDS SUMMARY | 2024-11-23 10:19 | XMS_ITS | Encounter Summary ---
Author Organization [employer] Address [address] [place] [address] Care Team Providers Care Quality Officer Name Role Phone RobertbetoGraceCoco Katt WISE Primary Care Provider [phone] Denny Dey DO Unavailable [phone] Lacey Perdue MD Unavailable [phone] Encounter Details Date Type Department Care Team (Latest Contact Info) Description 11/04/2018 Transcribe Orders [facility] [address] [place] [address] Lacey Perdue MD [address] [address] Encounter for long-term (current) use [...] of Assessment Author No 10/25/2017 2:00 PM CENTERLESS GRINDER Deonna Galvan, GEORGE * Are you blind [...] * (ABNORMAL) Vancomycin, trough (11/04/2018 11:45 AM CENTERLESS GRINDER) Vancomycin Trough 10.1(H) 5.0 - 10.0 mcg/mL 11/04/2018 1:02 PM CENTERLESS GRINDER [facility] [employer] [facility] Serum specimen (specimen) 11/04/2018 11:45 AM CENTERLESS GRINDER 11/04/2018 12:23 PM CENTERLESS GRINDER us Lacey Perdue MD LAB BLOOD ORDERABLES Final R esult [facility] [employer] [facility] [address] [place], [place] * (ABNORMAL) Basic metabolic panel (11/04/2018 11:45 AM CENTERLESS GRINDER) Sodium 141 136 - 145 mmol/L 11/04/2018 1:02 PM [facility] [employer] [facility] Potassium 4.0 3.5 - 5.1 mmol/L 11/04/2018 1:02 PM [facility] [employer] [facility] Chloride 106 98 - 107 mmol/L 11/04/2018 1:02 PM [facility] CO2 26 21 - 32 mmol/L 11/04/2018 1:02 PM [facility] [employer] [facility] Glucose 122(H) 74 - 106 mg/dL 11/04/2018 1:02 PM [facility] [employer] BUN 20(H) 7.0 - 18.0 mg/dL 11/04/2018 1:02 PM [facility] [employer] Creatinine 0.96 0.70 - 1.30 mg/dL 11/04/2018 1:02 PM [facility] [employer] [facility] Calcium 9.3 8.5 - 10.1 mg/dL 11/04/2018 1:02 PM [facility] [employer] Creatinine Based eGFR >60 11/04/2018 1:02 PM [facility] [employer] Comment: GFR REFERENCE RANGE: >60 mL/min/1.73m2 -- An eGFR of > than, or = to 60, may indicate normal renal function or mildly decreased GFR. EGFR /Karla n >60 11/04/2018 1:02 PM [facility] Comment: -- An eGFR of > than, or = to 60, may indicate normal renal function or mildly decreased GFR. Serum specimen (specimen) 11/04/2018 11:45 AM CENTERLESS GRINDER 11/04/2018 12:23 PM [facility] us Lacey Perdue MD LAB BLOOD ORDERABLES Final R esult [facility] [employer] [facility] [address] [place], [place] documented in this encounter Visit Diagnoses Diagnosis Encounter for long-term (current) use of antibiotics- Primary Primary localized osteoarthrosis Primary localized osteoarthrosis, unspecified site documented in this encounter Care Teams Quality Officer Relationship Specialty Start Date End Date Coco Leos PA-C [address] [place] [address] PCP - General Physician Director Distribution 10/25/17 11/24/18 Denny Dey DO [address] [place] [address] Referring Physician Orthopedic Surgery 06/28/18 9 Lacey Perdue MD [address] [phone] Referring Physician Infectious Diseases 06/28/18 documented as of this encounter
--- OUTSIDE RECORDS SUMMARY | 2024-11-23 10:19 | XMS_ITS | Encounter Summary ---
Author Organization [employer] Address [address] [place] [address] Care Team Providers Care Floatlight Powder Mixer Name Role Phone Denny Dey DO Unavailable [phone] Lacey Perdue MD Unavailable [phone] Leonard Jasso APRN Primary Care Provide r Reason for Referral * Referral (Routine) - Closed Specialty Diagnoses / Procedures Referred By Celine almaguer Referred To Contact General Surgery Diagnoses Encounter for screening colonoscopy Leonard Jasso APRN [address] [place] [address] Phone: tel: fax: Siddhartha Loyd MD [address] [place] [address] [address] [place] [address] Phone: tel: fax: Referral ID Status Reason Start Date Expiration Date V isits Requested Visits Authorized [id number] Closed Specialty Services Required 11/25/2018 11/25/2019 1 1 [facility] Encounter Details Date Type Department Care Team (Late st Contact Info) Description 11/25/2018 Orders Only [address] [address] Brittany Clemons CMA [address] [facility] [address] [place] [address] Encounter for screening colonoscopy (Primary [...] Author No 10/25/2017 2:00 PM Deonna Padilla, TEACHER PRESCHOOL * Are you blind or do you have serious difficulty seeing, even when wearing glasses? Answer Date of Assessment Author No 10/25/2017 2:00 PM Deonna Padilla S, TEACHER PRESCHOOL * Do you have serious difficulty walking or climbing stairs? (5 years old or older) Answer Date of Assessment Author No 10/25/2017 2:00 PM Deonna Padilla S, TEACHER PRESCHOOL * Do you have difficulty dressing or bathing? (5 years old or older) Answer Date of Assessment Author No 10/25/2017 2:00 PM Deonna Padilla S, TEACHER PRESCHOOL * Because of a physical, mental, or emotional condition, do you have difficulty doing errands alone such as visiting a doctor's office or shopping? (15 years old or older) Answer Date of Assessment Author No 10/25/2017 2:00 PM Deonna Padilla S, TEACHER PRESCHOOL documented as of this encounter Mental Status * Because of a physical, mental, or emotional condition, do you have serious difficulty concentrating, remembering, or making decisions? (5 years old or older) Answer Entry Date Author No 10/25/2017 2:00 PM Deonna Padilla S, TEACHER PRESCHOOL documented in this encounter Plan of Treatment [...] colon documented in this encounter Care Teams Floatlight Powder Mixer Relationship Specialty Start Date End Date Leonard Jasso APRN [address] [place] [address] PCP - General Family Medicine 11/25/18 08/14/19 Denny Dey DO Referring Physician Orthopedic Surgery 06/28/18 9 Lacey Perdue MD [address] [phone] Referring Physician Infectious Diseases 06/28/18 documented as of this encounter
--- OUTSIDE RECORDS SUMMARY | 2024-11-23 10:19 | XMS_ITS | Encounter Summary ---
Author Organization [facility] Address [address] [place] [address] Care Team Providers Care Ergonomics Technician Name Role Phone Coco Leos PA-C Primary Care Provider [phone] Denny Dey DO Unavailable [phone] Lacey Perdue MD Unavailable [phone] Reason for Visit * Reason Comments Follow-up 3 month follow up me d refill Encounter Details Date Type Department Care Team (Late st Contact Info) Description 11/02/2018 2:00 PM NOVELTY PRINTING MACHINE OPERATOR Office Visit [address] [id number] Leonard Jasso, PAEDIATRIC THORACIC PHYSICIAN [address] [place], [place] [address] Other chronic osteomyelitis of right ankle (Primary [...] Comments Blood Pressure 110/70 11/02/2018 1:07 PM NOVELTY PRINTING MACHINE OPERATOR Pulse 109 11/02/2018 1:07 PM NOVELTY PRINTING MACHINE OPERATOR Temperature 36.6 ??C (97.9 ??F) 11/02/2018 1:07 PM CS T Respiratory Rate - - Oxygen Saturation 96% 11/02/2018 1:07 PM NOVELTY PRINTING MACHINE OPERATOR Inhaled Oxygen Concentration - - Weight 87.7 kg (193 lb 6.4 oz) 11/02/2018 1:07 P M NOVELTY PRINTING MACHINE OPERATOR Height 180.3 cm (5' 10.98 ) 11/02/2018 1:[address] Body Mass Index 26.99 11/02/2018 1:07 PM NOVELTY PRINTING MACHINE OPERATOR documented in this encounter Functional Status [...] Leonard Jasso APNP - 11/02/2018 2:00 PM NOVELTY PRINTING MACHINE OPERATOR Take medications exactly as prescribed. Warm moist [...] Follow up with me in one month. LTY PRINTING MACHINE OPERATOR LTY PRINTING MACHINE OPERATOR documented in this encounter Progress [...] about our office at another facility. My weekend receptionist Yani happened to be working and that other facility the day the patient was complaining openly in the waiting room. Due to patient unhappiness with my clinic and be treating him and also inappropriate drug screens I had contacted Zenaida the clinical specialist and asked her to terminate the patient [...] are negative. Objective: BP 110/70 (BP Location: [facility], BP Position: sitting, BP Cuff Size: Reg) [...] Follow up with me in one month. LTY PRINTING MACHINE OPERATOR documented in this encounter Plan [...] ankle documented in this encounter Care Teams Ergonomics Technician Relationship Specialty Start Date End Date Coco Leos PA-C [address] [place] [address] PCP - General Physician Measurement Advisor 10/25/17 11/24/18 Denny Dey DO [address] [place] [address] Referring Physician Orthopedic Surgery 06/28/18 9 Lacey Perdue MD [facility] [phone] Referring Physician Infectious Diseases 06/28/18 documented as of this encounter
--- OUTSIDE RECORDS SUMMARY | 2024-11-23 10:19 | XMS_ITS | Encounter Summary ---
Author Organization [facility] Address [address] [place] [address] Care Team Providers Care Member Of Congress Name Role Phone Denny Dye DO Unavailable [phone] Lacey Perdue MD Unavailable Leonard Jasso APRN Primary Care Provide r Reason for Visit * Auth/Cert Specialty Diagnoses / Procedures Referred By Celine t Referred To Contact Diagnoses PERSONAL HISTORY OF COLON POLYPS Procedures ENDO - COLONOSCOPY; BIOPSY; POLYPECTOMY Referral ID Status Reason Start Date Expiration Date Visits Re quested Visits Authorized [id number] 1 1 Encounter Details Date Type Department Care Team (Late st Contact Info) Description 12/07/2018 9:10 AM SOFTWARE ENGINEER ADVISOR Anesthesia Event [facility] [address] [place] [address] Brenden Perez CRNA Anesthesia Record Procedure Summary [...] COVID-19? No / Unsure 12/23/2021 11:28 AM SOFTWARE ENGINEER ADVISOR documented as of this encounter Functional Status * Are you deaf or do you have serious difficulty hearing? Answer Date of Assessment Author No 10/25/2017 2:00 PM SOFTWARE ENGINEER ADVISOR Galvan, Am y S, HEMATOLOGY ONCOLOGY CONSULTANT * Are you blind or do you have serious difficulty seeing, even when wearing glasses? Answer Date of Assessment Author No 10/25/2017 2:00 PM SOFTWARE ENGINEER ADVISOR Galvan, Am y S, HEMATOLOGY ONCOLOGY CONSULTANT * Do you have serious difficulty walking or climbing stairs? (5 years old or older) Answer Date of Assessment Author No 10/25/2017 2:00 PM SOFTWARE ENGINEER ADVISOR Galvan, Am y S, HEMATOLOGY ONCOLOGY CONSULTANT * Do you have difficulty dressing or bathing? (5 years old or older) Answer Date of Assessment Author No 10/25/2017 2:00 PM SOFTWARE ENGINEER ADVISOR Galvan, Am y S, HEMATOLOGY ONCOLOGY CONSULTANT * Because of a physical, mental, or emotional condition, do you have difficulty doing errands alone such as visiting a doctor's office or shopping? (15 years old or older) Answer Date of Assessment Author No 10/25/2017 2:00 PM SOFTWARE ENGINEER ADVISOR Galvan, Am y S, HEMATOLOGY ONCOLOGY CONSULTANT documented as of this encounter Mental Status * Because of a physical, mental, or emotional condition, do you have serious difficulty concentrating, remembering, or making decisions? (5 years old or older) Answer Entry Date Author No 10/25/2017 2:00 PM SOFTWARE ENGINEER ADVISOR Galvan, Am y S, HEMATOLOGY ONCOLOGY CONSULTANT documented in this encounter OR Notes * [...] from the PACU when they meet criteria. WARE ENGINEER ADVISOR * Anesthesia Preprocedure Evaluation - Brenden Perez [...] obtained. Risks Discussed: Medical Necessity: DNR Status: WARE ENGINEER ADVISOR documented in this encounter Plan of Treatment Not on file documented as of this encounter Goals Goal Patient Goal Type Associated Problems Recent Progress Patient-Stated? Author Blood Pressure < 140/90 Blood Pressure 134/86(2022 2:25 PM CDT) No Leonard Jasso APRN documented as of this encounter Visit Diagnoses Not on filedocumented in this encounter Care Teams Member Of Congress Relationship Specialty Start Date End Date Leonard Jasso APRN [address] [place] [address] PCP - General Family Medicine 11/25/18 08/14/19 Denny Dey DO Referring Physician Orthopedic Surgery 06/28/18 9 Lacey Perdue MD [address] [phone] Referring Physician Infectious Diseases 06/28/18 documented as of this encounter
--- OUTSIDE RECORDS SUMMARY | 2024-11-23 10:19 | XMS_ITS | Encounter Summary ---
Author Organization [employer] Address [address] [place] [address] Care Team Providers Care Fruit Loader Machine Operator Name Role Phone Denny Dey DO Unavailable [phone] Lacey Perdue MD Unavailable [phone] Leonard Jasso APRN Primary Care Provide r Reason for Visit * Reason Onset Date Comments Colonoscopy prep 12/02/2018 Encounter Details Date Type Department Care Team (Late st Contact Info) Description 12/02/2018 Telephone [facility] Surgery [address] [facility], [address] [place] [address] Zenaida Clifton, RN [address] [place] [phone] Colonoscopy prep Social History Tobacco Use [...] Assessment Author No 10/25/2017 2:00 PM FIELD RESEARCH ASSOCIATE Galvan, Am y S, PHOTOENGRAVING SUPERVISOR * Are you blind or do you have serious difficulty seeing, even when wearing glasses? Answer Date of Assessment Author No 10/25/2017 2:00 PM FIELD RESEARCH ASSOCIATE Deonna Galvan S, PHOTOENGRAVING SUPERVISOR * Do you have serious difficulty walking or climbing stairs? (5 years old or older) Answer Date of Assessment Author No 10/25/2017 2:00 PM FIELD RESEARCH ASSOCIATE Deonna Galvan y S, PHOTOENGRAVING SUPERVISOR * Do you have difficulty dressing or bathing? (5 years old or older) Answer Date of Assessment Author No 10/25/2017 2:00 PM FIELD RESEARCH ASSOCIATE Deonna Galvan y S, PHOTOENGRAVING SUPERVISOR * Because of a physical, mental, or emotional condition, do you have difficulty doing errands alone such as visiting a doctor's office or shopping? (15 years old or older) Answer Date of Assessment Author No 10/25/2017 2:00 PM Deonna Padilla S, PHOTOENGRAVING SUPERVISOR documented as of this encounter Mental Status * Because of a physical, mental, or emotional condition, do you have serious difficulty concentrating, remembering, or making decisions? (5 years old or older) Answer Entry Date Author No 10/25/2017 2:00 PM Deonna Padilla S, PHOTOENGRAVING SUPERVISOR documented in this encounter Miscellaneous Notes * Telephone Encounter - Zenaida Clifton RN - 12/02/2018 11:34 AM FIELD RESEARCH ASSOCIATE Pt showed to clinic to pick up and delivery driver his colon prep for scheduled procedure. Prep instructions had been given at consult appointment, but again reiterated today. Pt verbalized understanding and stated he would call with questions. D RESEARCH ASSOCIATE documented in this encounter Plan of Treatment Not on file documented as of this encounter Goals Goal Patient Goal Type Associated Problems Recent Progress Patient-Stated? Author Blood Pressure < 140/90 Blood Pressure 134/86(2022 2:25 PM CDT) No Leonard Jasso APRN documented as of this encounter Visit Diagnoses Not on filedocumented in this encounter Care Teams Fruit Loader Machine Operator Relationship Specialty Start Date End Date Leonard Jasso APRN [address] [place] [address] PCP - General Family Medicine 11/25/18 08/14/19 Denny Dey DO Referring Physician Orthopedic Surgery 06/28/18 9 Lacey Perdue MD [address] [phone] Referring Physician Infectious Diseases 06/28/18 documented as of this encounter
--- OUTSIDE RECORDS SUMMARY | 2024-11-23 10:19 | XMS_ITS | Encounter Summary ---
Author Organization [employer] Address [address] [place] [address] Care Team Providers Care Smash Hand Name Role Phone Denny Dey DO Unavailable [phone] Lacey Perdue MD Unavailable [phone] Leonard Jasso APRN Primary Care Provide r Reason for Visit * Auth/Cert Specialty Diagnoses / Procedures Referred By Celine almaguer Referred To Contact Diagnoses PERSONAL HISTORY OF COLON POLYPS Procedures ENDO - COLONOSCOPY; BIOPSY; POLYPECTOMY Referral ID Status Reason Start Date Expiration Date Visits Re quested Visits Authorized [id number] 1 1 Encounter Details Date Type Department Care Team (Late st Contact Info) Description 12/07/2018 11:00 AM SUPPLY ASSISTANT - 12/07/2018 12:00 PM [facility] [address] [place] [id number] Siddhartha Loyd MD [address] [place] [address] ENDO - COLONOSCOPY Surgery Details Date/Time Status Location OR Service Patient Class Case Class Case Type Trauma Case? 12/07/2018 11:00 AM Posted [facility] OR [facility] Outpatient Procedure/Ga talib Panel 1 Procedure [...] Comments Blood Pressure 114/72 12/07/2018 10:12 AM SUPPLY ASSISTANT Pulse 60 12/07/2018 10:12 AM SUPPLY ASSISTANT Temperature 36.8 ??C (98.3 ??F) 12/07/2018 10:[address] Respiratory Rate 18 12/07/2018 10:12 AM SUPPLY ASSISTANT Oxygen Saturation 97% 12/07/2018 10:12 AM SUPPLY ASSISTANT Inhaled Oxygen Concentration - - Weight 89.4 kg (197 lb) 12/07/2018 7:50 AM SUPPLY ASSISTANT Height 180.3 cm (5' 11 ) 12/07/2018 7:50 AM SUPPLY ASSISTANT Body Mass Index 27.48 12/07/2018 7:50 AM SUPPLY ASSISTANT documented in this encounter Functional Status [...] Entry Date Author No 10/25/2017 2:00 PM SUPPLY ASSISTANT Deonna Galvan ARNP documented in this encounter [...] Physical Exam, Review of Systems or Plan. LY ASSISTANT * Siddhartha Loyd MD - 12/07/2018 8:45 [...] Jasso, * ?? This is a [facility] patient. ? Chief Complaint: Chief Complaint Patient [...] ??? ALT 11/14/2018 63 ? ? EGFR Non-/Trinidadian 11/14/2018 >60 ? ? EGFR /Trinidadian 11/14/2018 >60 ??? Vancomycin Trough 11/14/2018 10.8* ??? CRP 11/14/2018 1.30* Hospital Outpatient Visit on 11/11/2018 Component Date Value ??? Sodium 11/11/2018 137 ??? Potassium 11/11/2018 4.2 ??? Chloride 11/11/2018 102 ??? CO2 11/11/2018 26 ??? Glucose 11/11/2018 162* ??? BUN 11/11/2018 13 ??? Creatinine, Serum 11/11/2018 0.93 ??? Calcium 11/11/2018 9.0 ? ? EGFR Non-/Trinidadian 11/11/2018 >60 ? ? EGFR /Trinidadian 11/11/2018 >60 ??? Vancomycin Trough 11/11/2018 7.1 [...] ??? ALT 11/07/2018 51 ? ? EGFR Non-/Trinidadian 11/07/2018 >60 ? ? EGFR /Trinidadian 11/07/2018 >60 ??? Sedimentation Rate 11/07/2018 25* ??? Vancomycin Trough 11/07/2018 9.9 Hospital Outpatient Visit on 11/04/2018 Component Date Value ??? Vancomycin Trough 11/04/2018 10.1* ??? Sodium 11/04/2018 141 ??? Potassium 11/04/2018 4.0 ??? Chloride 11/04/2018 106 ??? CO2 11/04/2018 26 ??? Glucose 11/04/2018 122* ??? BUN 11/04/2018 20* ??? Creatinine, Serum 11/04/2018 0.96 ??? Calcium 11/04/2018 9.3 ? ? EGFR Non-/Trinidadian 11/04/2018 >60 ? ? EGFR /Trinidadian 11/04/2018 >60 ? Impression and Plan: 63-year-old [...] polyps. ? Siddhartha Montgomery. MD Evert, FACS LY ASSISTANT documented in this encounter Procedure Notes * Siddhartha Loyd MD - 12/07/2018 9:51 AM CST [facility] COLONOSCOPY PROCEDURE NOTE @TODAYSDATE@ Patient Name : Edilberto Hawley Referring Physician:TIFFANI Galeano Date of Surgery: @@ Surgeon: Siddhartha Loyd MD Staff: @[facility]@ Type of anesthesia: MAC (Managed Anesthesia Care) [...] Recommendation: Follow up with me. 1 week. LY ASSISTANT documented in this encounter OR Notes * Op Note - Siddhartha Loyd MD - 12/08/2018 10:18 AM CST [facility] COLONOSCOPY PROCEDURE NOTE ? Patient Name : Edilberto Hawley Referring Physician:TIFFANI Galeano ?? Date of Surgery: 12-07-18 ?? Surgeon: Siddhartha Loyd MD Staff: @[facility]@ Type of anesthesia: MAC (Managed Anesthesia Care) [...] Recommendation: Follow up with me. 1 week. LY ASSISTANT documented in this encounter Plan of Treatment Not on file documented as of this encounter Goals Goal Patient Goal Type Associated Problems Recent Progress Patient-Stated? Author Blood Pressure < 140/90 Blood Pressure 134/86(2022 2:25 PM CDT) No Leonard Jasso APRN documented as of this encounter Procedures Procedure Name Priority Date/Time Associated Diagnosis Comments PATHOLOGY/TISSUE SPECIMEN Routine 12/07/2018 9:35 AM SUPPLY ASSISTANT Endo - Colonoscopy 12/07/2018 9: 10 AM SUPPLY ASSISTANT PERSONAL HISTORY OF COLON POLYPS documented in this encounter Results * Pathology/Tissue Specimen (12/07/2018 9:35 AM SUPPLY ASSISTANT) Histology Tracking See scanned image in sr. media manager. 12/14/2018 10:44 AM SUPPLY ASSISTANT [facility] Pathology (qualifier value) POLYP / Unknown 12/07/2018 10:11 AM SUPPLY ASSISTANT Pathology (qualifier value) POLYP / Unknown 12/07/2018 10:12 AM SUPPLY ASSISTANT us Siddhartha Loyd MD PATHOLOGY/CYTOLOGY ORDERABLES F inal Result [facility] [address] [place], [place] documented in this encounter Visit Diagnoses Not on filedocumented in this encounter Administered Medications Inactive Administered Medications - up to 3 most recent administrations Medication Order MAR Action Action Date Dose Rate Site lactated ringers infusion at 100 mL/hr, Intravenous, CONTINUOUS, Starting on Wed12/07/18 at 0800, For 60 days, Pre-op New Bag 12/07/2018 8:09 AM SUPPLY ASSISTANT 100 mL/hr documented in this encounter Active and Recently Administered Medications Times are shown in SUPPLY ASSISTANT. Continuous Medication Order 12/05/2018 12/06/2018 12/07/2018 lactated ringers infusion at 100 mL/hr, Intravenous, CONTINUOUS, Starting on Wed12/07/18 at 0800, For 60 days, Pre-op 0809 (New Bag - Prov ider: Iman Barrios LPN) documented in this encounter Care Teams Smash Hand Relationship Specialty Start Date End Date Leonard Jasso APRN [address] [place] [address] PCP - General Family Medicine 11/25/18 08/14/19 Denny Dey DO Referring Physician Orthopedic Surgery 06/28/18 9 Lacey Perdue MD [address] [phone] Referring Physician Infectious Diseases 06/28/18 documented as of this encounter
--- OUTSIDE RECORDS SUMMARY | 2024-11-23 10:19 | XMS_ITS | Encounter Summary ---
Author Organization [employer] Address [address] [place] [address] Care Team Providers Care Route Sales Delivery Drivers Supervisor Name Role Phone RobertbetoGraceCoco Katt WISE Primary Care Provider [phone] Denny Dey DO Unavailable [phone] Lacey Perdue MD Unavailable Encounter Details Date Type Department Care Team (Latest Contact Info) Description 10/31/2018 Transcribe Orders [facility] [address] [place] [address] Lacey Perdue MD [address] [phone] Encounter for long-term (current) use [...] of Assessment Author No 10/25/2017 2:00 PM CNC MACHINE SETTER Deonna Galvan, GEORGE * Are you blind [...] Results * C-reactive protein (10/31/2018 11:40 AM CNC MACHINE SETTER) CRP 0.60 0.2 - 0.9 mg/dL 10/31/2018 1:29 PM CNC MACHINE SETTER [facility] Serum specimen (specimen) 10/31/2018 11:40 AM CNC MACHINE SETTER 10/31/2018 12:49 PM CNC MACHINE SETTER us Lacey Perdue MD LAB BLOOD ORDERABLES Final R esult [facility] [address] [place] * Vancomycin, trough (10/31/2018 11:40 AM CNC MACHINE SETTER) Vancomycin Trough 7.4 5.0 - 10.0 mcg/mL 10/31/2018 1:29 PM CNC MACHINE SETTER [facility] Serum specimen (specimen) 10/31/2018 11:40 AM CNC MACHINE SETTER 10/31/2018 12:49 PM CNC MACHINE SETTER us Lacey Perdue MD LAB BLOOD ORDERABLES Final R esult [facility] [address] [place], [place] * (ABNORMAL) Sedimentation rate (10/31/2018 11:40 AM CNC MACHINE SETTER) Sedimentation Rate 35(H) 0 - 20 mm/hr 10/31/2018 1:41 PM CNC MACHINE SETTER [facility] Whole blood specimen (specimen) 10/31/2018 11:40 AM CNC MACHINE SETTER 10/31/2018 12:49 PM CNC MACHINE SETTER us Lacey Perdue MD LAB BLOOD ORDERABLES Final R esult [facility] [address] [place], [place] * (ABNORMAL) Comprehensive metabolic panel (10/31/2018 11:40 AM CNC MACHINE SETTER) Sodium 139 136 - 145 mmol/L 10/31/2018 1:29 PM CNC MACHINE SETTER [facility] Potassium 4.0 3.5 - 5.1 mmol/L 10/31/2018 1:29 PM CNC MACHINE SETTER [facility] Chloride 103 98 - 107 mmol/L 10/31/2018 1:29 PM CNC MACHINE SETTER [facility] CO2 26 21 - 32 mmol/L 10/31/2018 1:29 PM [facility] Glucose 104 74 - 106 mg/dL 10/31/2018 1:29 PM CNC MACHINE SETTER [facility] BUN 17 7.0 - 18.0 mg/dL 10/31/2018 1:29 PM [facility] [employer] [facility] Creatinine 0.99 0.70 - 1.30 mg/dL 10/31/2018 1:29 PM [facility] Calcium 9.1 8.5 - 10.1 mg/dL 10/31/2018 1:29 PM [facility] Total Protein 7.1 6.4 - 8.2 g/dL 10/31/2018 1:29 PM [facility] Albumin 3.9 3.4 - 5.0 g/dL 10/31/2018 1:29 PM [facility] Bilirubin Total 0.5 0.2 - 1.0 mg/dL 10/31/2018 1:29 PM [facility] [employer] [facility] Alkaline Phosphatase 93 56 - 119 U/L 10/31/2018 1:29 PM [facility] [employer] [facility] AST 44(H) 15 - 37 U/L 10/31/2018 1:29 PM [facility] [employer] [facility] ALT 61 16 - 63 U/L 10/31/2018 1:29 PM [facility] [employer] [facility] Creatinine Based eGFR >60 10/31/2018 1:29 PM [facility] [employer] [facility] Comment: GFR REFERENCE RANGE: >60 mL/min/1.73m2 -- An eGFR of > than, or = to 60, may indicate normal renal function or mildly decreased GFR. EGFR /[place] >60 10/31/2018 1:29 PM [facility] Comment: -- An eGFR of > than, or = to 60, may indicate normal renal function or mildly decreased GFR. Serum specimen (specimen) 10/31/2018 11:40 AM CNC MACHINE SETTER 10/31/2018 12:49 PM CNC MACHINE SETTER us Lacey Perdue MD LAB BLOOD ORDERABLES Final R esult [facility] [address] [place], [place] * (ABNORMAL) CBC and differential (10/31/2018 11:40 AM CNC MACHINE SETTER) WBC 6.53 4.00 - 11.00 th/mm3 10/31/2018 1:09 PM [facility] RBC 5.09 4.50 - 6.50 mill/mm3 10/31/2018 1:09 PM [facility] HGB 15.0 13.8 - 18.0 g/dL 10/31/2018 1:09 PM [facility] HCT 44.7 40.0 - 54.0 % 10/31/2018 1:09 PM [facility] MCV 87.8 76 - 99 fL 10/31/2018 1:09 PM [facility] MCH 29.5 27.0 - 32.0 pg 10/31/2018 1:09 PM [facility] MCHC 33.6 30.0 - 35.0 g/dL 10/31/2018 1:09 PM [facility] Platelets 187 135 - 470 th/mm3 10/31/2018 1:09 PM [facility] RDW 12.5 11.0 - 17.0 % 10/31/2018 1:09 PM [facility] MPV 9.9 8.0 - 12.5 fL 10/31/2018 1:09 PM [facility] Differential Type AUTOMATED DIFFERENTIAL 10/31/2018 1:09 PM [facility] Neutrophil % 54.8 45.0 - 75.0 % 10/31/2018 1:09 PM [facility] Lymphocytes % 26.8 20.0 - 45.0 % 10/31/2018 1:09 PM [facility] Monocyte % 12.1(H) 0.0 - 10.0 % 10/31/2018 1:09 PM [facility] Eosinophils Relative % 5.7(H) 0.0 - 5.0 % 10/31/2018 1:09 PM [facility] Basophils % 0.3 0.0 - 2.0 % 10/31/2018 1:09 PM [facility] Immature Granulocytes% 0.3 0.0 - 1.6 % 10/31/2018 1:09 PM [facility] Neutrophils Absolute 3.58 2.00 - 7.90 th/mm3 10/31/2018 1:09 PM [facility] [employer] [facility] Lymphocytes Absolute 1.75 1.00 - 4.00 th/mm3 10/31/2018 1:09 PM CNC MACHINE SETTER [facility] [employer] [facility] Monos Absolute 0.79 0.00 - 0.80 th/mm3 10/31/2018 1:[address] [facility] Eosinophils Absolute Count 0.37 0.00 - 0.40 th/mm3 10/31/2018 1:09 PM [facility] Basophils Absolute 0.02 0.00 - 0.10 th/mm3 10/31/2018 1:09 PM [facility] [employer] [facility] Immature Granulocytes Absolute 0.02 0.0 - 0.20 th/mm3 10/31/2018 1:09 PM [facility] [employer] [facility] Serum specimen (specimen) BLOOD SPECIMEN / Unknown 10/31/2018 11:40 AM CNC MACHINE SETTER 10/31/2018 12:49 PM CNC MACHINE SETTER us Lacey Perdue MD LAB BLOOD ORDERABLES Final R esult [facility] [employer] [facility] [address] [place], [place] documented in this encounter Visit Diagnoses Diagnosis Encounter for long-term (current) use of antibiotics- Primary Primary localized osteoarthrosis Primary localized osteoarthrosis, unspecified site documented in this encounter Care Teams Route Sales Delivery Drivers Supervisor Relationship Specialty Start Date End Date Coco Leos PA-C [address] [place] [address] PCP - General Physician Technical Marketing Consultant 10/25/17 11/24/18 Denny Dey DO [address] [place] [address] Referring Physician Orthopedic Surgery 06/28/18 9 Lacey Perdue MD [address] [phone] Referring Physician Infectious Diseases 06/28/18 documented as of this encounter
--- OUTSIDE RECORDS SUMMARY | 2024-11-23 10:19 | XMS_ITS | Encounter Summary ---
Author Organization [employer] Address [address] [place] [address] Care Team Providers Care Continuous Process Machine Operator Name Role Phone Denny Dey DO Unavailable [phone] Lacey Perdue MD Unavailable [phone] Leonard Jasso CRM ADMINISTRATOR Primary Care Provide r Reason for Visit * Reason Comments Follow-up Encounter Details Date Type Department Care Team (Late st Contact Info) Description 01/17/2019 1:00 PM ENVIRONMENTAL PERMITTING SPECIALIST Office Visit [address] [phone] Leonard Jasso, ANGIE [address] [place] [phone] Open wound of ankle with complication, right, [...] Comments Blood Pressure 106/80 01/17/2019 1:12 PM ENVIRONMENTAL PERMITTING SPECIALIST Pulse 86 01/17/2019 1:12 PM ENVIRONMENTAL PERMITTING SPECIALIST Temperature 36.2 ??C (97.2 ??F) 01/17/2019 1:12 PM CS T Respiratory Rate - - Oxygen Saturation 95% 01/17/2019 1:12 PM ENVIRONMENTAL PERMITTING SPECIALIST Inhaled Oxygen Concentration - - Weight 92.9 kg (204 lb 11.2 oz) 01/17/2019 1:12 PM ENVIRONMENTAL PERMITTING SPECIALIST Height 180.3 cm (5' 10.98 ) 01/17/2019 1:[address] Body Mass Index 28.56 01/17/2019 1:12 PM ENVIRONMENTAL PERMITTING SPECIALIST documented in this encounter Functional Status * Are you deaf or do you have serious difficulty hearing? Answer Date of Assessment Author No 10/25/2017 2:00 PM ENVIRONMENTAL PERMITTING SPECIALIST Deonna Galvan, TRACK HOE OPERATOR * Are you blind or do you have serious difficulty seeing, even when wearing glasses? Answer Date of Assessment Author No 10/25/2017 2:00 PM ENVIRONMENTAL PERMITTING SPECIALIST Deonna Galvan, TRACK HOE OPERATOR * Do you have serious difficulty walking or climbing stairs? (5 years old or older) Answer Date of Assessment Author No 10/25/2017 2:00 PM ENVIRONMENTAL PERMITTING SPECIALIST Deonna Galvan, TRACK HOE OPERATOR * Do you have difficulty dressing or bathing? (5 years old or older) Answer Date of Assessment Author No 10/25/2017 2:00 PM ENVIRONMENTAL PERMITTING SPECIALIST Deonna Galvan, TRACK HOE OPERATOR * Because of a physical, mental, or emotional condition, do you have difficulty doing errands alone such as visiting a doctor's office or shopping? (15 years old or older) Answer Date of Assessment Author No 10/25/2017 2:00 PM Deonna Padilla, TRACK HOE OPERATOR documented as of this encounter Mental Status * Because of a physical, mental, or emotional condition, do you have serious difficulty concentrating, remembering, or making decisions? (5 years old or older) Answer Entry Date Author No 10/25/2017 2:00 PM Deonna Padilla, TRACK HOE OPERATOR documented in this encounter Patient Instructions * Patient Instructions* Leonard Jasso APNP - 01/17/2019 1:00 PM ENVIRONMENTAL PERMITTING SPECIALIST Follow up in two weeks. Continue to cover with dry dressing right ankle wound. Do not pick at the wound. You will cause an infection again. RONMENTAL PERMITTING SPECIALIST documented in this encounter Progress Notes * Leonard Jasso APNP - 01/17/2019 1:00 PM CST Chief Complaint Patient presents with ??? Follow-up [address] [address] Dept: [phone] Dept Loc: [phone] Loc Date: 01/17/2019 Name: Edilberto Hawley : [...] 01/17/2019 Signed: TIFFANI Galeano 01/20/2019 8:35 AM RONMENTAL PERMITTING SPECIALIST documented in this encounter Plan of [...] Primary documented in this encounter Care Teams Continuous Process Machine Operator Relationship Specialty Start Date End Date Leonard Jasso APRN [address] [place] [address] PCP - General Family Medicine 11/25/18 08/14/19 Denny Dey DO Referring Physician Orthopedic Surgery 06/28/18 9 Lacey Perdue MD [address] [phone] Referring Physician Infectious Diseases 06/28/18 documented as of this encounter
--- OUTSIDE RECORDS SUMMARY | 2024-11-23 10:19 | XMS_ITS | Encounter Summary ---
Author Organization [employer] Address [address] [place] [address] Care Team Providers Care Levers Lace Machine Operator Name Role Phone Coco Leos PA-C Primary Care Provider [phone] Denny Dey DO Unavailable [phone] Lacey Perdue MD Unavailable [phone] Encounter Details Date Type Department Care Team (Latest Contact Info) Description 11/07/2018 10:15 AM BELL STAFF - 11/07/2018 11:59 PM BELL STAFF Hospital Encounter [facility] [address] [place] [phone] Encounter for long-term (current) use of antibiotics; [...] of Assessment Author No 10/25/2017 2:00 PM BELL STAFF Galvan, Am y S, NEWSPAPER DISTRIBUTOR SUPERVISOR * Do you have serious difficulty [...] SEDIMENTATION RATE Routine 11/07/2018 10 :15 AM BELL STAFF Encounter for long-term (current) use of antibiotics Primary localized osteoarthrosis CBC AND DIFFERENTIAL Routine 11/07/2018 10:15 AM BELL STAFF Encounter for long-term (current) use of antibiotics Primary localized osteoarthrosis VANCOMYCIN, TROUGH Routine 11/07/2018 10 :15 AM BELL STAFF Encounter for long-term (current) use of antibiotics Primary localized osteoarthrosis COMPREHENSIVE METABOLIC PANEL Routine 11/07/2018 10:15 AM BELL STAFF Encounter for long-term (current) use of antibiotics Primary localized osteoarthrosis documented in this encounter Results * Vancomycin, trough (11/07/2018 10:15 AM BELL STAFF) Vancomycin Trough 9.9 5.0 - 10.0 mcg/mL 11/07/2018 11:20 AM BELL STAFF [facility] Serum specimen (specimen) 11/07/2018 10:15 AM BELL STAFF 11/07/2018 10:40 AM BELL STAFF us Lacey Perdue MD LAB BLOOD ORDERABLES Final R esult [facility] [address] [place], [place] * (ABNORMAL) Sedimentation rate (11/07/2018 10:15 AM [facility]) Sedimentation Rate 25(H) 0 - 20 mm/hr 11/07/2018 11:38 AM [facility] Whole blood specimen (specimen) 11/07/2018 10:15 AM BELL STAFF 11/07/2018 10:40 AM [facility] us Lacey Perdue MD LAB BLOOD ORDERABLES Final R esult [facility] [address] [place] * (ABNORMAL) Comprehensive metabolic panel (11/07/2018 10:15 AM [facility]) Sodium 139 136 - 145 mmol/L 11/07/2018 11:20 AM [facility] [employer] [facility] Potassium 4.3 3.5 - 5.1 mmol/L 11/07/2018 11:20 AM [facility] [employer] [facility] Chloride 103 98 - 107 mmol/L 11/07/2018 11:20 AM [facility] CO2 24 21 - 32 mmol/L 11/07/2018 11:20 AM [facility] [employer] [facility] Glucose 119(H) 74 - 106 mg/dL 11/07/2018 11:20 AM [facility] [employer] [facility] BUN 14 7.0 - 18.0 mg/dL 11/07/2018 11:20 AM [facility] [employer] [facility] Creatinine 0.87 0.70 - 1.30 mg/dL 11/07/2018 11:20 AM [facility] [employer] [facility] Calcium 9.2 8.5 - 10.1 mg/dL 11/07/2018 11:20 AM [facility] [employer] [facility] Total Protein 7.1 6.4 - 8.2 g/dL 11/07/2018 11:20 AM [facility] [employer] [facility] Albumin 3.9 3.4 - 5.0 g/dL 11/07/2018 11:20 AM [facility] [employer] [facility] Bilirubin Total 0.4 0.2 - 1.0 mg/dL 11/07/2018 11:20 AM [facility] [employer] [facility] Alkaline Phosphatase 94 56 - 119 U/L 11/07/2018 11:20 AM [facility] AST 40(H) 15 - 37 U/L 11/07/2018 11:20 AM [facility] [employer] [facility] ALT 51 16 - 63 U/L 11/07/2018 11:20 AM [facility] [employer] [facility] Creatinine Based eGFR >60 11/07/2018 11:20 AM [facility] Comment: GFR REFERENCE RANGE: >60 mL/min/1.73m2 -- An eGFR of > than, or = to 60, may indicate normal renal function or mildly decreased GFR. EGFR /Gibraltarian >60 11/07/2018 11:20 AM [facility] Comment: -- An eGFR of > than, or = to 60, may indicate normal renal function or mildly decreased GFR. Serum specimen (specimen) 11/07/2018 10:15 AM BELL STAFF 11/07/2018 10:40 AM [facility] us Lacey Perdue MD LAB BLOOD ORDERABLES Final R esult [facility] [address] [place], [place] * CBC and differential (11/07/2018 10:15 AM [facility]) WBC 7.32 4.00 - 11.00 th/mm3 11/07/2018 10:57 AM [facility] [employer] [facility] RBC 5.30 4.50 - 6.50 mill/mm3 11/07/2018 10:57 AM [facility] [employer] [facility] HGB 15.8 13.8 - 18.0 g/dL 11/07/2018 10:57 AM [facility] [employer] [facility] HCT 45.8 40.0 - 54.0 % 11/07/2018 10:57 AM [facility] [employer] [facility] MCV 86.4 76 - 99 fL 11/07/2018 10:57 AM [facility] [employer] [facility] MCH 29.8 27.0 - 32.0 pg 11/07/2018 10:57 AM [facility] [employer] [facility] MCHC 34.5 30.0 - 35.0 g/dL 11/07/2018 10:57 AM [facility] [employer] [facility] Platelets 200 135 - 470 th/mm3 11/07/2018 10:57 AM [facility] [facility] RDW 12.7 11.0 - 17.0 % 11/07/2018 10:57 AM [facility] MPV 9.8 8.0 - 12.5 fL 11/07/2018 10:57 AM [facility] Differential Type AUTOMATED DIFFERENTIAL 11/07/2018 10:57 AM [facility] Neutrophil % 58.5 45.0 - 75.0 % 11/07/2018 10:57 AM [facility] Lymphocytes % 29.0 20.0 - 45.0 % 11/07/2018 10:57 AM [facility] Monocyte % 8.9 0.0 - 10.0 % 11/07/2018 10:57 AM [facility] Eosinophils Relative % 3.1 0.0 - 5.0 % 11/07/2018 10:57 AM [facility] Basophils % 0.4 0.0 - 2.0 % 11/07/2018 10:57 AM [facility] Immature Granulocytes% 0.1 0.0 - 1.6 % 11/07/2018 10:57 AM [facility] Neutrophils Absolute 4.28 2.00 - 7.90 th/mm3 11/07/2018 10:57 AM [facility] Lymphocytes Absolute 2.12 1.00 - 4.00 th/mm3 11/07/2018 10:57 AM [facility] [employer] [facility] Monos Absolute 0.65 0.00 - 0.80 th/mm3 11/07/2018 10:57 AM BELL STAFF [facility] [employer] [facility] Eosinophils Absolute Count 0.23 0.00 - 0.40 th/mm3 11/07/2018 10:57 AM BELL STAFF [facility] [employer] [facility] Basophils Absolute 0.03 0.00 - 0.10 th/mm3 11/07/2018 10:57 AM BELL STAFF [facility] [employer] [facility] Immature Granulocytes Absolute 0.01 0.0 - 0.20 th/mm3 11/07/2018 10:57 AM BELL STAFF [facility] [employer] [facility] Serum specimen (specimen) BLOOD SPECIMEN / Unknown 11/07/2018 10:15 AM BELL STAFF 11/07/2018 10:40 AM [facility] us Lacey Perdue MD LAB BLOOD ORDERABLES Final R esult [facility] [employer] [facility] [address] [place] [address] documented in this encounter Visit Diagnoses Diagnosis Encounter for long-term (current) use of antibiotics Primary localized osteoarthrosis Primary localized osteoarthrosis, unspecified site documented in this encounter Care Teams Levers Lace Machine Operator Relationship Specialty Start Date End Date Coco Leos PA-C [address] [place] [address] PCP - General Physician Nuclear Plant Construction Worker 10/25/17 11/24/18 Denny Dey DO [address] [place] [address] Referring Physician Orthopedic Surgery 06/28/18 9 Lacey Perdue MD [facility] [phone] Referring Physician Infectious Diseases 06/28/18 documented as of this encounter
--- OUTSIDE RECORDS SUMMARY | 2024-11-23 10:19 | XMS_ITS | Encounter Summary ---
Author Organization [employer] Address [address] [place] [address] Care Team Providers Care Critical Care Cns Name Role Phone RobertbetoTatianae Katt WISE Primary Care Provider [phone] Denny Dey DO Unavailable Lacey Perdue MD Unavailable [phone] Leonard Jasso APRN Primary Care Provide r Reason for Visit * Reason Comments Medication Refill Encounter Details Date Type Department Care Team (Late st Contact Info) Description 11/23/[address] [address] Leonard Jasso APRN [address] [place] [address] Social History Tobacco Use Types Packs/Day [...] of Assessment Author No 10/25/2017 2:00 PM GRAVITY PROSPECTING SUPERVISOR Deonna Galvan, GEORGE * Are you blind or do you have serious difficulty seeing, even when wearing glasses? Answer Date of Assessment Author No 10/25/2017 2:00 PM Deonna Padilla S, SEISMOGRAPH SUPERVISOR * Do you have serious difficulty walking or climbing stairs? (5 years old or older) Answer Date of Assessment Author No 10/25/2017 2:00 PM JOHN Galvan Am y S, SEISMOGRAPH SUPERVISOR * Do you have difficulty dressing or bathing? (5 years old or older) Answer Date of Assessment Author No 10/25/2017 2:00 PM Deonna Padilla S, SEISMOGRAPH SUPERVISOR * Because of a physical, mental, or emotional condition, do you have difficulty doing errands alone such as visiting a doctor's office or shopping? (15 years old or older) Answer Date of Assessment Author No 10/25/2017 2:00 PM Deonna Padilla, SEISMOGRAPH SUPERVISOR documented as of this encounter Mental Status * Because of a physical, mental, or emotional condition, do you have serious difficulty concentrating, remembering, or making decisions? (5 years old or older) Answer Entry Date Author No 10/25/2017 2:00 PM Deonna Padilla, SEISMOGRAPH SUPERVISOR documented in this encounter Plan of Treatment Not on file documented as of this encounter Goals Goal Patient Goal Type Associated Problems Recent Progress Patient-Stated? Author Blood Pressure < 140/90 Blood Pressure 134/86(2022 2:25 PM CDT) No Leonard Jasso APRN documented as of this encounter Visit Diagnoses Not on filedocumented in this encounter Care Teams Critical Care Cns Relationship Specialty Start Date End Date Coco Leos PA-C [address] [place] [address] PCP - General Physician Fish Filleter 10/25/17 11/24/18 Leonard Jasso APRN [address] [place] [address] PCP - General Family Medicine 11/25/18 08/14/19 Denny Dey DO [address] [place], [place] [phone] Referring Physician Orthopedic Surgery 06/28/18 9 Lacey Perdue MD [facility] [phone] Referring Physician Infectious Diseases 06/28/18 documented as of this encounter
--- OUTSIDE RECORDS SUMMARY | 2024-11-23 10:19 | XMS_ITS | Encounter Summary ---
Author Organization [email or web address] Address [address] [place] [address] Care Team Providers Care Steam Blocker Name Role Phone RobertbetoGraceCoco Katt WISE Primary Care Provider [phone] Denny Dey DO Unavailable [phone] Lacey Perdue MD Unavailable Encounter Details Date Type Department Care Team (Latest Contact Info) Description 11/07/2018 Transcribe Orders [facility] [address] [place] [address] Lacey Perdue MD [address] [phone] Encounter for long-term (current) use [...] of Assessment Author No 10/25/2017 2:00 PM DRAPERY HEMMER AUTOMATIC Deonna Galvan, GEORGE * Are you blind [...] Results * Vancomycin, trough (11/07/2018 10:15 AM DRAPERY [facility]EM[facility]OM[employer]) Vancomycin Trough 9.9 5.0 - 10.0 mcg/mL 11/07/2018 11:[address] [facility] [employer] [facility] Serum specimen (specimen) 11/07/2018 10:15 AM DRAPERY HEMMER [employer]OMATIC 11/07/2018 10:40 AM DRAPERY HEMMER AUTOMAT[employer] us Lacey Perdue MD LAB BLOOD ORDERABLES Final R esult [facility] [employer] [facility] [address] [place] * (ABNORMAL) Sedimentation rate (11/07/2018 10:15 AM [facility] [employer]) Sedimentation Rate 25(H) 0 - 20 mm/hr 11/07/2018 11:38 AM [facility] Whole blood specimen (specimen) 11/07/2018 10:15 AM DRAPERY HEMMER AUTOMATIC 11/07/2018 10:40 AM [facility] us Lacey Perdue MD LAB BLOOD ORDERABLES Final R esult [facility] [employer] [facility] [address] [place] * (ABNORMAL) Comprehensive metabolic panel (11/07/2018 10:15 AM [facility]) Sodium 139 136 - 145 mmol/L 11/07/2018 11:20 AM [facility] [employer] Potassium 4.3 3.5 - 5.1 mmol/L 11/07/2018 11:20 AM [facility] [employer] [facility] Chloride 103 98 - 107 mmol/L 11/07/2018 11:20 AM [facility] CO2 24 21 - 32 mmol/L 11/07/2018 11:20 AM [facility] Glucose 119(H) 74 - 106 mg/dL 11/07/2018 11:20 AM [facility] [employer] [facility] BUN 14 7.0 - 18.0 mg/dL 11/07/2018 11:20 AM [facility] [employer] [facility] Creatinine 0.87 0.70 - 1.30 mg/dL 11/07/2018 11:20 AM [facility] [employer] [facility] Calcium 9.2 8.5 - 10.1 mg/dL 11/07/2018 11:20 AM [facility] [employer] [facility] Total Protein 7.1 6.4 - 8.2 g/dL 11/07/2018 11:20 AM [facility] Albumin 3.9 3.4 - 5.0 g/dL 11/07/2018 11:20 AM [facility] Bilirubin Total 0.4 0.2 - 1.0 mg/dL 11/07/2018 11:20 AM [facility] [employer] [facility] Alkaline Phosphatase 94 56 - 119 U/L 11/07/2018 11:20 AM [facility] CARTRed Dot PaymentGE [facility] AST 40(H) 15 - 37 U/L 11/07/2018 11:20 AM [facility] [employer] [facility] ALT 51 16 - 63 U/L 11/07/2018 11:20 AM [facility] [employer] [facility] Creatinine Based eGFR >60 11/07/2018 11:20 AM [facility] CAR[employer]ed Dot [employer] [facility] Comment: GFR REFERENCE RANGE: >60 mL/min/1.73m2 -- An eGFR of > than, or = to 60, may indicate normal renal function or mildly decreased GFR. EGFR /Tajik >60 11/07/2018 11:20 AM [facility] [employer] [facility] Comment: -- An eGFR of > than, or = to 60, may indicate normal renal function or mildly decreased GFR. Serum specimen (specimen) 11/07/2018 10:15 AM [facility] [employer]OM[employer] 11/07/2018 10:40 AM [facility] us Lacey Perdue MD LAB BLOOD ORDERABLES Final R esult [facility] [employer] [address] [place], [place] * CBC and differential (11/07/2018 10:15 AM [facility]) WBC 7.32 4.00 - 11.00 th/mm3 11/07/2018 10:57 AM [facility] [employer] [facility] RBC 5.30 4.50 - 6.50 mill/mm3 11/07/2018 10:57 AM [facility] HGB 15.8 13.8 - 18.0 g/dL 11/07/2018 10:57 AM [facility] [employer] [facility] HCT 45.8 40.0 - 54.0 % 11/07/2018 10:57 AM [facility] [employer] [facility] MCV 86.4 76 - 99 fL 11/07/2018 10:57 AM [facility] MCH 29.8 27.0 - 32.0 pg 11/07/2018 10:57 AM [facility] MCHC 34.5 30.0 - 35.0 g/dL 11/07/2018 10:57 AM [facility] Platelets 200 135 - 470 th/mm3 11/07/2018 10:57 AM [facility] RDW 12.7 11.0 - 17.0 % 11/07/2018 10:57 AM [facility] MPV 9.8 8.0 - 12.5 fL 11/07/2018 10:57 AM [facility] Differential Type AUTOMATED DIFFERENTIAL 11/07/2018 10:57 AM [facility] Neutrophil % 58.5 45.0 - 75.0 % 11/07/2018 10:57 AM [facility] Lymphocytes % 29.0 20.0 - 45.0 % 11/07/2018 10:57 AM [facility] Monocyte % 8.9 0.0 - 10.0 % 11/07/2018 10:57 AM [facility] Eosinophils Relative % 3.1 0.0 - 5.0 % 11/07/2018 10:57 AM [facility] Basophils % 0.4 0.0 - 2.0 % 11/07/2018 10:57 AM [facility] Immature Granulocytes% 0.1 0.0 - 1.6 % 11/07/2018 10:57 AM [facility] Neutrophils Absolute 4.28 2.00 - 7.90 th/mm3 11/07/2018 10:57 AM [facility] Lymphocytes Absolute 2.12 1.00 - 4.00 th/mm3 11/07/2018 10:57 AM [facility] Monos Absolute 0.65 0.00 - 0.80 th/mm3 11/07/2018 10:57 AM [facility] Eosinophils Absolute Count 0.23 0.00 - 0.40 th/mm3 11/07/2018 10:57 [address]MER [address] [facility] Basophils Absolute 0.03 0.00 - 0.10 th/mm3 11/07/2018 10:57 [address] [facility] [employer] [facility] Immature Granulocytes Absolute 0.01 0.0 - 0.20 th/mm3 11/07/2018 10:57 [address] [facility] [employer] [facility] Serum specimen (specimen) BLOOD SPECIMEN / Unknown 11/07/2018 10:15 AM DRAPERY HEMMER AUTOMATIC 11/07/2018 10:40 AM DRAPERY HEMMER AUTOMAT[employer] us Lacey Perdue MD LAB BLOOD ORDERABLES Final R esult [facility] [employer] [facility] [address] [place], [place] documented in this encounter Visit Diagnoses Diagnosis Encounter for long-term (current) use of antibiotics- Primary Primary localized osteoarthrosis Primary localized osteoarthrosis, unspecified site documented in this encounter Care Teams Steam Blocker Relationship Specialty Start Date End Date Coco Leos PA-C [address] [place] [address] PCP - General Physician Knitting Inspector 10/25/17 11/24/18 Denny Dey DO [address] [place] [address] Referring Physician Orthopedic Surgery 06/28/18 9 Lacey Perdue MD [address] [place] [phone] Referring Physician Infectious Diseases 06/28/18 documented as of this encounter
--- OUTSIDE RECORDS SUMMARY | 2024-11-23 10:19 | XMS_ITS | Encounter Summary ---
Author Organization [email or web address] Address [address] [place] [address] Care Team Providers Care Quality Compliance Manager Name Role Phone Denny Dey DO Unavailable [phone] Lacey Perdue MD Unavailable Leonard Jasso APRN Primary Care Provide r Reason for Visit * Reason Onset Date Comments Medication Refill 03/30/2019 Encounter Details Date Type Department Care Team (Late st Contact Info) Description 03/30/2019 Refill [facility] [address] [place] [address] [address] [place] [address] Social History Tobacco Use Types [...] Author No 10/25/2017 2:00 PM Deonna Padilla, ESTHETICIAN FACIALIST * Do you have serious difficulty walking or climbing stairs? (5 years old or older) Answer Date of Assessment Author No 10/25/2017 2:00 PM Deonna Padilla, ESTHETICIAN FACIALIST * Do you have difficulty dressing or bathing? (5 years old or older) Answer Date of Assessment Author No 10/25/2017 2:00 PM Deonna Padilla, ESTHETICIAN FACIALIST * Because of a physical, mental, or emotional condition, do you have difficulty doing errands alone such as visiting a doctor's office or shopping? (15 years old or older) Answer Date of Assessment Author No 10/25/2017 2:00 PM Deonna Padilla, ESTHETICIAN FACIALIST documented as of this encounter Mental Status [...] on filedocumented in this encounter Care Teams Quality Compliance Manager Relationship Specialty Start Date End Date Leonard Jasso APRN [address] [place] [address] PCP - General Family Medicine 11/25/18 08/14/19 Denny Dey DO Referring Physician Orthopedic Surgery 06/28/18 9 Lacey Perdue MD [address] [phone] Referring Physician Infectious Diseases 06/28/18 documented as of this encounter
--- OUTSIDE RECORDS SUMMARY | 2024-11-23 10:19 | XMS_ITS | Encounter Summary ---
Author Organization [employer] Address [address] [place] [address] Care Team Providers Care Psychology Technician Name Role Phone Denny Dey DO Unavailable [phone] Lacey Perdue MD Unavailable Leonard Jasso APRN Primary Care Provide r Reason for Visit * Reason Onset Date Comments Colonoscopy 12/05/2018 Surgery departme nt had notified me that Mr. Hawley had misplaced his prep instructions. Encounter Details Date Type Department Care Team (Late st Contact Info) Description 12/05/[address] [place] [address] Zenaida Clifton RN [address] [place] [address] [address] [place] [address] Colonoscopy (Surgery department had notified [...] Assessment Author No 10/25/2017 2:00 PM BINDERY OPERATOR Deonna Galvan S, FOREST ECONOMICS PROFESSOR * Are you blind or do you have serious difficulty seeing, even when wearing glasses? Answer Date of Assessment Author No 10/25/2017 2:00 PM BINDERY OPERATOR Deonna Galvan y S, FOREST ECONOMICS PROFESSOR * Do you have serious difficulty walking or climbing stairs? (5 years old or older) Answer Date of Assessment Author No 10/25/2017 2:00 PM BINDERY OPERATOR Deonna Galvan S, FOREST ECONOMICS PROFESSOR * Do you have difficulty dressing or bathing? (5 years old or older) Answer Date of Assessment Author No 10/25/2017 2:00 PM Deonna Padilla S, FOREST ECONOMICS PROFESSOR * Because of a physical, mental, or emotional condition, do you have difficulty doing errands alone such as visiting a doctor's office or shopping? (15 years old or older) Answer Date of Assessment Author No 10/25/2017 2:00 PM Deonna Padilla, FOREST ECONOMICS PROFESSOR documented as of this encounter Mental Status * Because of a physical, mental, or emotional condition, do you have serious difficulty concentrating, remembering, or making decisions? (5 years old or older) Answer Entry Date Author No 10/25/2017 2:00 PM Deonna Padilla, FOREST ECONOMICS PROFESSOR documented in this encounter Miscellaneous Notes * Telephone Encounter - Zenaida Clifton RN - 12/05/2018 2:23 PM BINDERY OPERATOR Surgery Department had contacted me to advise [...] would contact me with any further questions. ERY OPERATOR documented in this encounter Plan of Treatment Not on file documented as of this encounter Goals Goal Patient Goal Type Associated Problems Recent Progress Patient-Stated? Author Blood Pressure < 140/90 Blood Pressure 134/86(2022 2:25 PM CDT) No Leonard Jasso APRN documented as of this encounter Visit Diagnoses Not on filedocumented in this encounter Care Teams Psychology Technician Relationship Specialty Start Date End Date Leonard Jasso APRN [address] [place] [address] PCP - General Family Medicine 11/25/18 08/14/19 Denny Dey DO Referring Physician Orthopedic Surgery 06/28/18 9 Lacey Perdue MD [address] [phone] Referring Physician Infectious Diseases 06/28/18 documented as of this encounter
--- OUTSIDE RECORDS SUMMARY | 2024-11-23 10:19 | XMS_ITS | Encounter Summary ---
Author Organization [employer] Address [address] [place] [address] Care Team Providers Care Waterworks Chief Engineer Name Role Phone Tatiana Leose Katt WISE Primary Care Provider [phone] Denny Dey DO Unavailable [phone] Lacey Perdue MD Unavailable [phone] Leonard Jasso APRN Primary Care Provide r Encounter Details Date Type Department Care Team (Late st Contact Info) Description 11/04/2018 Orders Only [address] [address] Leonard Jasso APRN [facility] [place] [address] Social History Tobacco Use Types [...] Assessment Author No 10/25/2017 2:00 PM ASSISTANT THERAPY AIDE Deonna Galvan, GEORGE * Are you blind or do you have serious difficulty seeing, even when wearing glasses? Answer Date of Assessment Author No 10/25/2017 2:00 PM Deonna Padilla S, WASTEWATER PROJECT ENGINEER * Do you have serious difficulty walking or climbing stairs? (5 years old or older) Answer Date of Assessment Author No 10/25/2017 2:00 PM Deonna Padilla S, WASTEWATER PROJECT ENGINEER * Do you have difficulty dressing or bathing? (5 years old or older) Answer Date of Assessment Author No 10/25/2017 2:00 PM Deonna Padilla, WASTEWATER PROJECT ENGINEER * Because of a physical, mental, or emotional condition, do you have difficulty doing errands alone such as visiting a doctor's office or shopping? (15 years old or older) Answer Date of Assessment Author No 10/25/2017 2:00 PM Deonna Padilla, WASTEWATER PROJECT ENGINEER documented as of this encounter Mental Status * Because of a physical, mental, or emotional condition, do you have serious difficulty concentrating, remembering, or making decisions? (5 years old or older) Answer Entry Date Author No 10/25/2017 2:00 PM Deonna Padilla, WASTEWATER PROJECT ENGINEER documented in this encounter Plan of Treatment Not on file documented as of this encounter Goals Goal Patient Goal Type Associated Problems Recent Progress Patient-Stated? Author Blood Pressure < 140/90 Blood Pressure 134/86(2022 2:25 PM CDT) No Leonard Jasso APRN documented as of this encounter Visit Diagnoses Not on filedocumented in this encounter Care Teams Waterworks Chief Engineer Relationship Specialty Start Date End Date Coco Leos PA-C [address] [place] [address] PCP - General Physician Cashier Checker 10/25/17 11/24/18 Leonard Jasso APRN [address] [place] [address] PCP - General Family Medicine 11/25/18 08/14/19 Denny Dey DO [address] [place] [address] Referring Physician Orthopedic Surgery 06/28/18 9 Lacey Perdue MD [address] [phone] Referring Physician Infectious Diseases 06/28/18 documented as of this encounter
--- OUTSIDE RECORDS SUMMARY | 2024-11-23 10:19 | XMS_ITS | Encounter Summary ---
Author Organization [employer] Address [address] [place] [address] Care Team Providers Care Iphone Developer Name Role Phone Denny Dey DO Unavailable [phone] Lacey Perdue MD Unavailable [phone] Leonard Jasso APRN Primary Care Provide r Reason for Visit * Reason Comments Medication Refill Encounter Details Date Type Department Care Team (Late st Contact Info) Description 11/25/[address] [address] Leonard Jasso APRN [facility] [place] [address] Social History Tobacco Use Types [...] of Assessment Author No 10/25/2017 2:00 PM PREFORMING MACHINE OPERATOR Galvan, Am y S, MANAGER BUSINESS INTELLIGENCE * Do you have serious difficulty walking or climbing stairs? (5 years old or older) Answer Date of Assessment Author No 10/25/2017 2:00 PM JOHN Galvan Am y S, MANAGER BUSINESS INTELLIGENCE * Do you have difficulty dressing or bathing? (5 years old or older) Answer Date of Assessment Author No 10/25/2017 2:00 PM PREFORMING MACHINE OPERATOR Deonna Galvan y S, MANAGER BUSINESS INTELLIGENCE * Because of a physical, mental, or emotional condition, do you have difficulty doing errands alone such as visiting a doctor's office or shopping? (15 years old or older) Answer Date of Assessment Author No 10/25/2017 2:00 PM JOHN Galvan Am y S, MANAGER BUSINESS INTELLIGENCE documented as of this encounter Mental Status * Because of a physical, mental, or emotional condition, do you have serious difficulty concentrating, remembering, or making decisions? (5 years old or older) Answer Entry Date Author No 10/25/2017 2:00 PM Deonna Padilla S, MANAGER BUSINESS INTELLIGENCE documented in this encounter Plan of Treatment Not on file documented as of this encounter Goals Goal Patient Goal Type Associated Problems Recent Progress Patient-Stated? Author Blood Pressure < 140/90 Blood Pressure 134/86(2022 2:25 PM CDT) No Leonard Jasso APRN documented as of this encounter Visit Diagnoses Not on filedocumented in this encounter Care Teams Iphone Developer Relationship Specialty Start Date End Date Leonard Jasso APRN [address] [place] [address] PCP - General Family Medicine 11/25/18 08/14/19 Denny Dey DO Referring Physician Orthopedic Surgery 06/28/18 9 Lacey Perdue MD [address] [phone] Referring Physician Infectious Diseases 06/28/18 documented as of this encounter
--- OUTSIDE RECORDS SUMMARY | 2024-11-23 10:19 | XMS_ITS | Encounter Summary ---
Author Organization [employer] Address [address] [place] [address] Care Team Providers Care Bowl Sander Name Role Phone Denny Dey DO Unavailable [phone] Lacey Perdue MD Unavailable Leonard Jasso APRN Primary Care Provide r Reason for Visit * Reason Comments Initial Consult Pt here for initial consult GERD * Referral (Routine) - Closed Specialty Diagnoses / Procedures Referred By Contac t Referred To Contact General Surgery Diagnoses Gastroesophageal reflux disease without esophagitis Leonard Jasso, ANGIE [address] [place] [address] Phone: tel: fax: Siddhartha Loyd MD [address] [place] [address] [address] [place] [address] Phone: tel: fax: Referral ID Status Reason Start Date Expiration Date V isits Requested Visits Authorized [id number] Closed Specialty Services Required 01/03/2019 01/03/2020 1 1 Encounter Details Date Type Department Care Team (Latest Contact Info) Description 01/05/2019 11:00 AM TOOL AND DIE INSPECTOR Initial consult [facility] Surgery [address] [facility] [address] [place] [address] [place] [address] [place] [address] [address] [place] [address] Gastroesophageal reflux disease, esophagitis presence [...] Comments Blood Pressure 120/88 01/05/2019 10:58 AM TOOL AND DIE INSPECTOR Pulse 80 01/05/2019 10:58 AM TOOL AND DIE INSPECTOR Temperature 36.5 ??C (97.7 ??F) 01/05/2019 10:[address] Respiratory Rate 18 01/05/2019 10:58 AM TOOL AND DIE INSPECTOR Oxygen Saturation 97% 01/05/2019 10:58 AM TOOL AND DIE INSPECTOR Inhaled Oxygen Concentration - - Weight 88.9 kg (196 lb) 01/05/2019 10:58 AM TOOL AND DIE INSPECTOR Height 180.3 cm (5' 11 ) 01/05/2019 10:58 AM TOOL AND DIE INSPECTOR Body Mass Index 27.34 01/05/2019 10:58 AM TOOL AND DIE INSPECTOR documented in this encounter Functional Status * [...] Zenaida Clifton RN - 01/05/2019 11:00 AM TOOL AND DIE INSPECTOR Images from the original note were not [...] to control the problem with antacids or qorm-rpc-pjhfqhu medicine. Changing your diet, losing weight, and [...] your medicine. ?? Your doctor may recommend vhcb-bcl-zbzfuqc medicine. For mild or occasional indigestion, antacids, such as Tums, Gaviscon, Mylanta, or Maalox, may help. Your doctor also may recommend aajm-xlm-doliyov acid reducers, such as Pepcid AC, Tagamet [...] option found under the Resources tab in [employer] [email or web address] If you do not have access to [employer], you can visit [email or web address] and select [employer] from the menu on the left. Enter T927 in the searchbox to learn more about Gastroesophageal Reflux Disease (GERD): Care Instructions. Not on [employer]? Go to [email or web address] and click the Sign Up Now linkto request an activation code. Current as of: February 08, 2018 Content Version: 11.9 ?? [id number] [employer]. Care instructions adapted under license by your healthcare professional. This care instruction is for use with your licensed healthcare professional. If you have questions about a medical condition or this instruction, always ask your healthcare professional. [employer] disclaims any warranty or liability for your use of this information. AND DIE INSPECTOR documented in this encounter Progress Notes * Siddhartha Loyd MD - 01/05/2019 11:00 AM CST Surgical Services Office Visit Patient: Edilberto Halwey Patient : 1955 Date: 01/05/19 Chief Complaint: [...] ankle or foot, acute, right ([facility]) 2018 Stepped on nail ??? Shoulder injury ??? Substance abuse ([facility]) cocaine, crystal meth nothing since 1996 [...] Follow-up on file. Siddhartha Loyd MD, FACS AND DIE INSPECTOR documented in this encounter Plan of Treatment Not on file documented as of this encounter Goals Goal Patient Goal Type Associated Problems Recent Progress Patient-Stated? Author Blood Pressure < 140/90 Blood Pressure 134/86(2022 2:25 PM CDT) No Wasielewski, Leonard W, MOBILE DISC JOCKEY documented as of this encounter Procedures Procedure Name Priority Date/Time Associated Diagnosis Comments AMB REFERRAL TO GENERAL SURGERY Routine 04/26/2019 11:45 AM CDT Gastroesophageal reflux disease without esophagitis documented in this encounter Results * Referral to General Surgery (04/26/2019 11:45 AM CDT) Narrative [facility] - 04/26/2019 11:45 AM CDT Note in Epic us Leonard Jasso MOBILE DISC JOCKEY OUTPATIENT REFERRAL O RDERABLES Final Result [facility] [employer] [address] [place], [place] documented in this encounter Visit Diagnoses Diagnosis Gastroesophageal reflux disease, esophagitis presence not specified- Primary documented in this encounter Care Teams Bowl Sander Relationship Specialty Start Date End Date Leonard Jasso APRN [address] [place] [address] PCP - General Family Medicine 11/25/18 08/14/19 Denny Dey DO Referring Physician Orthopedic Surgery 06/28/18 9 Lacey Perdue MD [address] [phone] Referring Physician Infectious Diseases 06/28/18 documented as of this encounter
--- OUTSIDE RECORDS SUMMARY | 2024-11-23 10:19 | XMS_ITS | Encounter Summary ---
Author Organization [employer] Address [address] [place] [address] Care Team Providers Care Bridal Stylist Sales Consultant Name Role Phone RobertbetoGraceCoco Katt WISE Primary Care Provider [phone] Denny Dey DO Unavailable [phone] Lacey Perdue MD Unavailable Encounter Details Date Type Department Care Team (Latest Contact Info) Description 11/11/2018 Transcribe Orders [facility] [address] [place] [address] Lacey Perdue MD [address] [phone] Encounter for long-term (current) use [...] of Assessment Author No 10/25/2017 2:00 PM CLOCK MAKER Deonna Galvan, GEORGE * Are you [...] Results * Vancomycin, trough (11/11/2018 11:00 AM CLOCK MAKER) Vancomycin Trough 7.1 5.0 - 10.0 mcg/mL 11/11/2018 12:42 PM CLOCK MAKER [facility] Serum specimen (specimen) 11/11/2018 11:00 AM CLOCK MAKER 11/11/2018 12:02 PM CLOCK MAKER us Lacey Perdue MD LAB BLOOD ORDERABLES Final R esult [facility] [address] [facility] [place] * (ABNORMAL) Basic metabolic panel (11/11/2018 11:00 AM CLOCK MAKER) Sodium 137 136 - 145 mmol/L 11/11/2018 12:37 PM [facility] Potassium 4.2 3.5 - 5.1 mmol/L 11/11/2018 12:37 PM [facility] Chloride 102 98 - 107 mmol/L 11/11/2018 12:37 PM [facility] [employer] [employer] [facility] CO2 26 21 - 32 mmol/L 11/11/2018 12:37 PM [facility] Glucose 162(H) 74 - 106 mg/dL 11/11/2018 12:37 PM [facility] BUN 13 7.0 - 18.0 mg/dL 11/11/2018 12:37 PM [facility] Creatinine 0.93 0.70 - 1.30 mg/dL 11/11/2018 12:37 PM [facility] Calcium 9.0 8.5 - 10.1 mg/dL 11/11/2018 12:37 PM [facility] Creatinine Based eGFR >60 11/11/2018 12:37 PM [facility] Comment: GFR REFERENCE RANGE: >60 mL/min/1.73m2 -- An eGFR of > than, or = to 60, may indicate normal renal function or mildly decreased GFR. EGFR /Karla n >60 11/11/2018 12:37 PM [facility] Comment: -- An eGFR of > than, or = to 60, may indicate normal renal function or mildly decreased GFR. Serum specimen (specimen) 11/11/2018 11:00 AM CLOCK MAKER 11/11/2018 12:02 PM CLOCK MAKER us Lacey Perdue MD LAB BLOOD ORDERABLES Final R esult [facility] [address] [place] documented in this encounter Visit Diagnoses Diagnosis Encounter for long-term (current) use of antibiotics- Primary Primary localized osteoarthrosis Primary localized osteoarthrosis, unspecified site documented in this encounter Care Teams Bridal Stylist Sales Consultant Relationship Specialty Start Date End Date Coco Leos PA-C [address] [place] [address] PCP - General Physician Ophthalmic Medical Technologist 10/25/17 11/24/18 Denny Dey DO [address] [place] [address] Referring Physician Orthopedic Surgery 06/28/18 9 Lacey Perdue MD [address] [phone] Referring Physician Infectious Diseases 06/28/18 documented as of this encounter
--- OUTSIDE RECORDS SUMMARY | 2024-11-23 10:19 | XMS_ITS | Encounter Summary ---
Author Organization [facility] Address [address] [place] [address] Care Team Providers Care Hat And Cap Opener Name Role Phone Denny Dey DO Unavailable [phone] Lacey Perdue MD Unavailable Leonard Jasso APRN Primary Care Provide r Reason for Visit * Reason Comments Wrist Pain pt states that pain started this am without trauma or injury; pt states pain is located in central wrist that increases with pressure without numbness or tingling Encounter Details Date Type Department Care Team (Late st Contact Info) Description 01/18/2019 3:12 PM MATCH UP PERSON - 01/18/2019 5:16 PM [facility] Emergency [facility] [address] [place] [address] Sin Rosas PA-C [address] [place], [place] [id number] Primary osteoarthritis of left wrist (Primary Dx) [...] Comments Blood Pressure 116/80 01/18/2019 3:19 PM MATCH UP PERSON Pulse 96 01/18/2019 3:19 PM MATCH UP PERSON Temperature 37.6 ??C (99.7 ??F) 01/18/2019 3:19 PM CS T Respiratory Rate 16 01/18/2019 3:19 PM MATCH UP PERSON Oxygen Saturation 95% 01/18/2019 3:19 PM MATCH UP PERSON Inhaled Oxygen Concentration - - Weight 88 kg (194 lb) 01/18/2019 3:19 PM MATCH UP PERSON Height 180.3 cm (5' 11 ) 01/18/2019 3:19 PM MATCH UP PERSON Body Mass Index 27.06 01/18/2019 3:19 PM MATCH UP PERSON documented in this encounter Functional Status * Are you deaf or do you have serious difficulty hearing? Answer Date of Assessment Author No 10/25/2017 2:00 PM MATCH UP PERSON Deonna Galvan, ARCHITECTURAL ASSOCIATE * Are you blind or do you have serious difficulty seeing, even when wearing glasses? Answer Date of Assessment Author No 10/25/2017 2:00 PM MATCH UP PERSON Deonna Galvan S, ARCHITECTURAL ASSOCIATE * Do you have serious difficulty walking or climbing stairs? (5 years old or older) Answer Date of Assessment Author No 10/25/2017 2:00 PM MATCH UP PERSON Deonna Galvan, ARCHITECTURAL ASSOCIATE * Do you have difficulty dressing or bathing? (5 years old or older) Answer Date of Assessment Author No 10/25/2017 2:00 PM MATCH UP PERSON Deonna Galvan S, ARCHITECTURAL ASSOCIATE * Because of a physical, mental, or emotional condition, do you have difficulty doing errands alone such as visiting a doctor's office or shopping? (15 years old or older) Answer Date of Assessment Author No 10/25/2017 2:00 PM MATCH UP PERSON Deonna Galvan, ARCHITECTURAL ASSOCIATE documented as of this encounter Mental Status * Because of a physical, mental, or emotional condition, do you have serious difficulty concentrating, remembering, or making decisions? (5 years old or older) Answer Entry Date Author No 10/25/2017 2:00 PM MATCH UP PERSON Deonna Galvan, ARCHITECTURAL ASSOCIATE documented in this encounter Discharge Instructions * Discharge Instructions* Sin Rosas PA-C - 01/18/2019 5:07 PM MATCH UP PERSON Wear your splint until evaluation with orthopedics is done. Follow-up with Dylan in 2 days. Continueall of your medication as prescribed. H UP PERSON * Attachments The following attachments cannot be sent through Care Everywhere. * Osteoarthritis (Canadian) documented in this encounter Medications at Time [...] Kerwin Green M.D. RT: RT Report ID: [id number] Reading Location: [id number] Narrative: [id number] [place] [address] Patient Name:EDILBERTO DURAND Accession Number: [id number] Patient ID Number:[id number] Approval Date: 01/18/2019 4:39 PM Date of :1955 Imaging Date: 01/18/2019 Gender:M Referring Physician:SNI ROSAS Exam Description:XR WRIST MIN 3 VIEWS [...] than is typically seen. There is polyarticular qhgu-xt-ufkokmsx osteoarthritis, moderate to severe at the basal [...] Specialties: Family Medicine, Nurse Practitioner Contact information: [address] [place] [address] [facility] Number of Diagnoses or Management [...] Rickey Bailey DO at 01/19/2019 10:46 AM MATCH UP PERSON H UP PERSON H UP PERSON documented in this encounter Plan of Treatment Not on file documented as of this encounter Goals Goal Patient Goal Type Associated Problems Recent Progress Patient-Stated? Author Blood Pressure < 140/90 Blood Pressure 134/86(2022 2:25 PM CDT) No Leonard Jasso APRN documented as of this encounter Procedures Procedure Name Priority Date/Time Associated Diagnosis Comments XR WRIST MIN 3 VIEWS STAT 01/18/2019 4:17 PM MATCH UP PERSON URIC ACID STAT 01/18/2019 3:49 PM MATCH UP PERSON documented in this encounter Results * XR Wrist Min 3 Views (01/18/2019 4:17 PM MATCH UP PERSON) Anatomical Region Laterality Modality Forearm, Wrist, Hand Computed Ra diography 01/18/2019 4:35 PM MATCH UP PERSON Impressions 01/18/2019 4:39 PM MATCH UP PERSON 1.Possible dorsal subluxation of a metacarpal base, [...] 4:39 PM - Electronically signed by Kerwin Geren M.D. RT: RT D: ??01/18/2019 4:39 PM T: ??01/18/2019 4:39 PM Report ID: [id number] Reading Location: ??[id number] Narrative 01/18/2019 4:39 PM MATCH UP PERSON [address] [place] [address] Patient Name:EDILBERTO DURAND ?Accession Number: [id number] Patient ID Number:[id number] ?Approval Date: 01/18/2019 4:39 PM Date of [...] than is typically seen. There is polyarticular lkir-ck-inzrrqxb osteoarthritis, moderate to severe at the basal thumb joint. 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 ??Negative ulnar variance present. ??Small ossified loose bodies are present at the basal thumb joint. Procedure Note Kerwin Green MD - 01/18/2019 [place] [address] Patient Name:EDILBERTO DURAND Accession Number: [id number] Patient ID Number:[id number] Approval Date: 01/18/2019 4:39 PM Date of [...] than is typically seen. There is polyarticular lmui-rz-fpcdkrmk osteoarthritis, moderate to severeat the basal thumb [...] Kerwin Green M.D. RT: RT Report ID: [id number] Reading Location: [place] [address] Sin Rosas PA-C IMG DIAGNOSTIC IMAGING ORDERAB LES Final Result * Uric acid (01/18/2019 3:49 PM MATCH UP PERSON) Uric Acid 6.9 3.5 - 7.2 mg/dL 01/18/2019 4:17 PM MATCH UP PERSON [facility][1] [facility] Serum specimen (specimen) 01/18/2019 3:49 PM MATCH UP PERSON 01/18/2019 3:50 PM MATCH UP PERSON Sin Rosas PA-C LAB BLOOD ORDERABLES Final Res ult [facility][1] [facility] [address] documented in this encounter Visit Diagnoses Diagnosis Primary osteoarthritis of left wrist- Primary Primary localized osteoarthrosis, forearm documented in this encounter Administered Medications Inactive Administered Medications - up to 3 most recent administrations Medication Order MAR Action Action Date Dose Rate Site ketorolac (TORADOL) injection 30 mg, Intramuscular, ONCE, On Wed01/18/19 at 1600, For 1 dose Given 01/18/2019 3:41 PM MATCH UP PERSON 30 mg Left Deltoid documented in this encounter Active and Recently Administered Medications Times are shown in MATCH UP PERSON. Scheduled Medication Order 01/16/2019 01/17/2019 01/18/2019 ketorolac (TORADOL) injection (COMPLETED) 30 mg, Intramuscular, ONCE, On Wed01/18/19 at 1600, For 1 dose 1541 (Given - Provid er: Sadena D Dawson, RN) documented in this encounter Care Teams Hat And Cap Opener Relationship Specialty Start Date End Date Leonard Jasso APRN [address] [place] [address] PCP - General Family Medicine 11/25/18 08/14/19 Denny Dey DO Referring Physician Orthopedic Surgery 06/28/18 9 Lacey Perdue MD [address] [address] Referring Physician Infectious Diseases 06/28/18 documented as of this encounter
--- OUTSIDE RECORDS SUMMARY | 2024-11-23 10:20 | XMS_ITS | Encounter Summary ---
Author Organization [facility] Address [address] [place] [address] Care Team Providers Care Blow Mold Operator Name Role Phone Coco Leos PA-C Primary Care Provider [phone] Denny Dey DO Unavailable [phone] Lacey Perdue MD Unavailable [phone] Encounter Details Date Type Department Care Team (Late st Contact Info) Description 10/04/2018 Orders Only [facility] [address] [place] [address] Yael Sim, IC DESIGNER CUSTOM [address] [place] [address] [address] [place] [address] Social History Tobacco Use Types [...] of Assessment Author No 10/25/2017 2:00 PM GAS DISTRIBUTION PLANT OPERATOR Galvan, Am y S, MASTICATOR * Do you have difficulty dressing or bathing? (5 years old or older) Answer Date of Assessment Author No 10/25/2017 2:00 PM GAS DISTRIBUTION PLANT OPERATOR Galvan, Am y S, MASTICATOR * Because of a physical, mental, or emotional condition, do you have difficulty doing errands alone such as visiting a doctor's office or shopping? (15 years old or older) Answer Date of Assessment Author No 10/25/2017 2:00 PM GAS DISTRIBUTION PLANT OPERATOR Galvan, Am y S, MASTICATOR documented as of this encounter Mental Status * Because of a physical, mental, or emotional condition, do you have serious difficulty concentrating, remembering, or making decisions? (5 years old or older) Answer Entry Date Author No 10/25/2017 2:00 PM GAS DISTRIBUTION PLANT OPERATOR Galvan, Am y S, MASTICATOR documented in this encounter Plan of Treatment Not on file documented as of this encounter Goals Goal Patient Goal Type Associated Problems Recent Progress Patient-Stated? Author Blood Pressure < 140/90 Blood Pressure 134/86(2022 2:25 PM CDT) No Leonard Jasso APRN documented as of this encounter Visit Diagnoses Not on filedocumented in this encounter Care Teams Blow Mold Operator Relationship Specialty Start Date End Date Coco Leos PA-C [address] [place] [address] PCP - General Physician Warp Knitting Machine Operator 10/25/17 11/24/18 Denny Dey DO [address] [place] [address] Referring Physician Orthopedic Surgery 06/28/18 9 Lacey Perdue MD [address] [address] Referring Physician Infectious Diseases 06/28/18 documented as of this encounter
--- OUTSIDE RECORDS SUMMARY | 2024-11-23 10:20 | XMS_ITS | Encounter Summary ---
Author Organization [facility] Address [address] [place] [address] Care Team Providers Care Patternmaker Plastics Name Role Phone Coco Leos PA-C Primary Care Provider [phone] Denny Dey DO Unavailable [phone] Lacey Perdue MD Unavailable [phone] Reason for Referral * MRI/CAT Scan (Routine) - Closed Specialty Diagnoses / Procedures Referred By Contac t Referred To Contact Radiology Diagnoses Staphylococcal arthritis of right ankle Cellulitis of right ankle Procedures MRI Lower Extremity Joint w wo Contrast Yanira Jimenez NP Phone: tel: fax: Referral ID Status Reason Start Date Expiration Date Visits Re quested Visits Authorized [id number] Closed 09/02/2018 09/02/2019 1 1 Reason for Visit * MRI/CAT Scan (Routine) - Closed Specialty Diagnoses / Procedures Referred By Contac t Referred To Contact Radiology Diagnoses Staphylococcal arthritis of right ankle Cellulitis of right ankle Procedures MRI Lower Extremity Joint w wo Contrast Yanira Jimenez NP Phone: tel: fax: Referral ID Status Reason Start Date Expiration Date Visits Re quested Visits Authorized [id number] Closed 09/02/2018 09/02/2019 1 1 Encounter Details Date Type Department Care Team (Latest Contact Info) Description 09/07/2018 9:15 AM CDT - 09/07/2018 11:59 PM CDT Hospital Encounter [facility] [address] [place] [address] Cousins, Yanira Crockett, CAR DELIVERER [address] [place] [address] Staphylococcal arthritis of right ankle (HCC); Cellulitis [...] Author No 10/25/2017 2:00 PM Deonna Padilla, STUDIO TECHNICIAN * Do you have difficulty dressing [...] Entry Date Author No 10/25/2017 2:00 PM HANDBAG FRAMER Galvan, Am y S, STUDIO TECHNICIAN documented in this encounter Medications at [...] PM T: ??09/07/2018 4:51 PM Report ID: [id number] Reading Location: ??[id number] Narrative 09/07/2018 4:51 [place] [address] Patient Name:EDILBERTO DURAND ?Accession Number: [id number] Patient ID Number:[id number] ?Approval Date: 09/07/2018 4:51 PM Date of [...] Procedure Note Kellie Ambrocio MD - 09/07/[address] [place] [address] Patient Name:EDILBERTO DURAND Accession Number: [id number] Patient ID Number:[id number] Approval Date: 09/07/2018 4:51 PM Date of [...] by Kellie Ambrocio M.D. : Report ID: [id number] Reading Location: [id number] Yanira Jimenez CAR DELIVERER IMG MRI ORDERABLES Final Resul t documented [...] mLs documented in this encounter Care Teams Patternmaker Plastics Relationship Specialty Start Date End Date Coco Leos PA-C [address] [place] [address] PCP - General Physician Automatic Presser 10/25/17 11/24/18 Denny Dey DO [address] [place] [address] Referring Physician Orthopedic Surgery 06/28/18 9 Lacey Perdue MD [address] [phone] Referring Physician Infectious Diseases 06/28/18 documented as of this encounter
--- OUTSIDE RECORDS SUMMARY | 2024-11-23 10:20 | XMS_ITS | Encounter Summary ---
Author Organization [facility] Address [address] [place] [address] Care Team Providers Care Motorized Squad Captain Name Role Phone Coco Leos PA-C Primary Care Provider [phone] Denny Dey DO Unavailable [phone] Lacey Perdue MD Unavailable [phone] Encounter Details Date Type Department Care Team (Latest Contact Info) Description 10/15/2018 7:00 AM GRAPHIC ARTIST - 10/15/2018 11:59 PM GRAPHIC ARTIST Hospital Encounter [facility] [address] [place] [phone] Encounter for long-term (current) use of antibiotics; [...] of Assessment Author No 10/25/2017 2:00 PM GRAPHIC ARTIST Galvan, Am y S, SLATE PICKER * Do you have serious difficulty walking [...] VANCOMYCIN, TROUGH Routine 10/15/2018 7: 00 AM GRAPHIC ARTIST Encounter for long-term (current) use of antibiotics Primary localized osteoarthrosis BASIC METABOLIC PANEL Routine 10/15/2018 7:00 AM GRAPHIC ARTIST Encounter for long-term (current) use of antibiotics Primary localized osteoarthrosis documented in this encounter Results * (ABNORMAL) Vancomycin, trough (10/15/2018 7:00 AM GRAPHIC ARTIST) Vancomycin Trough 20.4(H) 5.0 - 10.0 mcg/mL [facility] Blood specimen (specimen) 10/15/2018 7:00 AM GRAPHIC ARTIST 10/15/2018 7:57 AM GRAPHIC ARTIST us Lacey Perdue MD LAB BLOOD ORDERABLES Final R esult [facility] [address] [place] [address] * (ABNORMAL) Basic metabolic panel (10/15/2018 7:00 AM GRAPHIC ARTIST) Sodium 142 136 - 145 mmol/L [facility] Potassium 3.9 3.5 - 5.1 mmol/L [facility] Chloride 102 98 - 107 mmol/L [facility] CO2 29 21 - 32 mmol/L [facility] Glucose 121(H) 74 - 106 mg/dL [facility] BUN 12 7.0 - 18.0 mg/dL [facility] Creatinine 0.95 0.70 - 1.30 mg/dL [facility] Calcium 9.7 8.5 - 10.1 mg/dL [facility] Creatinine Based eGFR >60 [facility] Comment: GFR REFERENCE RANGE: >60 mL/min/1.73m2 -- An eGFR of > than, or = to 60, may indicate normal renal function or mildly decreased GFR. EGFR /Karla n >60 [facility] Comment: -- An eGFR of > than, or = to 60, may indicate normal renal function or mildly decreased GFR. Blood specimen (specimen) 10/15/2018 7:00 AM GRAPHIC ARTIST 10/15/2018 7:57 AM GRAPHIC ARTIST us Lacey Perdue MD LAB BLOOD ORDERABLES Final R esult [facility] [address] [facility] [place], [place] documented in this encounter Visit Diagnoses Diagnosis Encounter for long-term (current) use of antibiotics Primary localized osteoarthrosis Primary localized osteoarthrosis, unspecified site documented in this encounter Care Teams Motorized Squad Captain Relationship Specialty Start Date End Date Coco Leos PA-C [address] [place] [address] PCP - General Physician Automobile Rental Clerk 10/25/17 11/24/18 Denny Dey DO [address] [place] [address] Referring Physician Orthopedic Surgery 06/28/18 9 Lacey Perdue MD [facility] [address] Referring Physician Infectious Diseases 06/28/18 documented as of this encounter
--- OUTSIDE RECORDS SUMMARY | 2024-11-23 10:20 | XMS_ITS | Encounter Summary ---
Author Organization [employer] Address [address] [place] [address] Care Team Providers Care Infrastructure Design Engineer Name Role Phone Coco Leos PA-C Primary Care Provider [phone] Denny Dey DO Unavailable [phone] Lacey Perdue MD Unavailable [phone] Encounter Details Date Type Department Care Team (Latest Contact Info) Description 10/17/2018 12:00 PM SERVICE DEPARTMENT MANAGER - 10/17/2018 11:59 PM SERVICE DEPARTMENT MANAGER Hospital Encounter [facility] [address] [place] [phone] Encounter for long-term (current) use of antibiotics; [...] of Assessment Author No 10/25/2017 2:00 PM SERVICE DEPARTMENT MANAGER Galvan, Am y S, CARE TRANSITION COORDINATOR * Do you have serious difficulty [...] SEDIMENTATION RATE Routine 10/17/2018 12 :00 PM SERVICE DEPARTMENT MANAGER Encounter for long-term (current) use of antibiotics Primary localized osteoarthrosis CBC AND DIFFERENTIAL Routine 10/17/2018 12:00 PM SERVICE DEPARTMENT MANAGER Encounter for long-term (current) use of antibiotics Primary localized osteoarthrosis C-REACTIVE PROTEIN Routine 10/17/2018 12 :00 PM SERVICE DEPARTMENT MANAGER Encounter for long-term (current) use of antibiotics Primary localized osteoarthrosis VANCOMYCIN, TROUGH Routine 10/17/2018 12 :00 PM SERVICE DEPARTMENT MANAGER Encounter for long-term (current) use of antibiotics Primary localized osteoarthrosis COMPREHENSIVE METABOLIC PANEL Routine 10/17/2018 12:00 PM SERVICE DEPARTMENT MANAGER Encounter for long-term (current) use of antibiotics Primary localized osteoarthrosis documented in this encounter Results * (ABNORMAL) C-reactive protein (10/17/2018 12:00 PM SERVICE DEPARTMENT MANAGER) CRP <0.20(L) 0.2 - 0.9 mg/dL [facility] Blood specimen (specimen) 10/17/2018 12:00 PM SERVICE DEPARTMENT MANAGER 10/17/2018 1:32 PM SERVICE DEPARTMENT MANAGER us Lacey Perdue MD LAB BLOOD ORDERABLES Final R esult [facility] [address] [place], [place] * (ABNORMAL) Comprehensive metabolic panel (10/17/2018 12:00 PM SERVICE DEPARTMENT MANAGER) Sodium 142 136 - 145 mmol/L [facility] Potassium 3.8 3.5 - 5.1 mmol/L [facility] Chloride 104 98 - 107 mmol/L [facility] CO2 26 21 - 32 mmol/L [facility] Glucose 125(H) 74 - 106 mg/dL [facility] BUN 11 7.0 - 18.0 mg/dL [facility] Creatinine 1.01 0.70 - 1.30 mg/dL [facility] Calcium 9.0 8.5 - 10.1 mg/dL [facility] Total Protein 7.1 6.4 - 8.2 g/dL [facility] Albumin 3.8 3.4 - 5.0 g/dL [facility] Bilirubin Total 0.5 0.2 - 1.0 mg/dL [facility] [employer] Alkaline Phosphatase 94 56 - 119 U/L [facility] AST 60(H) 15 - 37 U/L [facility] ALT 75 12 - 78 U/L [facility] Creatinine Based eGFR >60 [facility] Comment: GFR REFERENCE RANGE: >60 mL/min/1.73m2 -- An eGFR of > than, or = to 60, may indicate normal renal function or mildly decreased GFR. EGFR /Vietnamese >60 [facility] Comment: -- An eGFR of > than, or = to 60, may indicate normal renal function or mildly decreased GFR. Blood specimen (specimen) 10/17/2018 12:00 PM SERVICE DEPARTMENT MANAGER 10/17/2018 1:32 PM SERVICE DEPARTMENT MANAGER us Lacey Perdue MD LAB BLOOD ORDERABLES Final R esult [facility] [address] [place] * CBC and differential (10/17/2018 12:00 PM SERVICE DEPARTMENT MANAGER) WBC 6.38 4.00 - 11.00 th/mm3 [facility] RBC 5.17 4.50 - 6.50 mill/mm3 [facility] HGB 15.2 13.8 - 18.0 g/dL [facility] HCT 45.3 40.0 - 54.0 % [facility] MCV 87.6 76 - 99 fL [facility] MCH 29.4 27.0 - 32.0 pg [facility] MCHC 33.6 30.0 - 35.0 g/dL [facility] Platelets 175 135 - 470 th/mm3 [facility] RDW 13.2 11.0 - 17.0 % [facility] MPV 10.4 8.0 - 12.5 fL [facility] Differential Type AUTOMATED DIFFERENTIAL [facility] Neutrophil % 58.0 45.0 - 75.0 % [facility] Lymphocytes % 27.4 20.0 - 45.0 % [facility] Monocyte % 10.0 0.0 - 10.0 % [facility] Eosinophils Relative % 4.1 0.0 - 5.0 % [facility] Basophils % 0.3 0.0 - 2.0 % [facility] Immature Granulocytes% 0.2 0.0 - 1.6 % [facility] Neutrophils Absolute 3.70 2.00 - 7.900 th/mm3 [facility] Lymphocytes Absolute 1.75 1.00 - 4.00 th/mm3 [facility] Monos Absolute 0.64 0.0 - 0.80 th/mm3 [facility] Eosinophils Absolute Count 0.26 0.00 - 0.40 th/mm3 [facility] Basophils Absolute 0.02 0.00 - 0.10 th/mm3 [facility] Immature Granulocytes Absolute 0.01 0.0 - 0.20 th/mm3 [facility] Blood specimen (specimen) BLOOD SPECIMEN / Unknown 10/17/2018 12:00 PM SERVICE DEPARTMENT MANAGER 10/17/2018 1:32 PM SERVICE DEPARTMENT MANAGER us Lacey Perdeu MD LAB BLOOD ORDERABLES Edited Result - Final [facility] [address] [place], [place] * (ABNORMAL) Vancomycin, trough (10/17/2018 12:00 PM SERVICE DEPARTMENT MANAGER) Vancomycin Trough 12.0(H) 5.0 - 10.0 mcg/mL [facility] Blood specimen (specimen) 10/17/2018 12:00 PM SERVICE DEPARTMENT MANAGER 10/17/2018 1:32 PM SERVICE DEPARTMENT MANAGER us Lacey Perdue MD LAB BLOOD ORDERABLES Final R esult [facility] [address] [place], [place] * (ABNORMAL) Sedimentation rate (10/17/2018 12:00 PM SERVICE DEPARTMENT MANAGER) Sedimentation Rate 31(H) 0 - 20 mm/hr [facility] Blood specimen (specimen) 10/17/2018 12:00 PM SERVICE DEPARTMENT MANAGER 10/17/2018 1:32 PM SERVICE DEPARTMENT MANAGER us Lacey Perdue MD LAB BLOOD ORDERABLES Final R esult [facility] [address] [place], [place] documented in this encounter Visit Diagnoses Diagnosis Encounter for long-term (current) use of antibiotics Primary localized osteoarthrosis Primary localized osteoarthrosis, unspecified site documented in this encounter Care Teams Infrastructure Design Engineer Relationship Specialty Start Date End Date Coco Leos PA-C [address] [place] [phone] PCP - General Physician Forestry Aid Technician 10/25/17 11/24/18 Denny Dey DO [address] [place] [address] Referring Physician Orthopedic Surgery 06/28/18 9 Lacey Perdue MD [address] [phone] Referring Physician Infectious Diseases 06/28/18 documented as of this encounter
--- OUTSIDE RECORDS SUMMARY | 2024-11-23 10:20 | XMS_ITS | Encounter Summary ---
Author Organization [employer] Address [address] [place] [address] Care Team Providers Care Pbx Teacher Name Role Phone RobertbetoGraceCoco Katt WISE Primary Care Provider [phone] Denny Dey DO Unavailable [phone] Lacey Perdue MD Unavailable Encounter Details Date Type Department Care Team (Latest Contact Info) Description 10/03/2018 Transcribe Orders [facility] [address] [place] [address] Lacey Perdue MD [address] [phone] Encounter for long-term (current) use [...] of Assessment Author No 10/25/2017 2:00 PM NURSING AGENCY MANAGER Deonna Galvan, GEORGE * Are you [...] Results * Vancomycin, trough (10/03/2018 12:30 PM NURSING AGENCY MANAGER) Pathologist [facility] Vancomycin Trough 9.4 5.0 - 10.0 mcg/mL [facility] Blood specimen (specimen) 10/03/2018 12:30 PM NURSING AGENCY MANAGER 10/03/2018 2:14 PM NURSING AGENCY MANAGER us Lacey Perdue MD LAB BLOOD ORDERABLES Final R esult [facility] [address] [place], [place] [phone] * (ABNORMAL) Sedimentation rate (10/03/2018 12:30 PM NURSING AGENCY MANAGER) Sedimentation Rate 25(H) 0 - 20 mm/hr [facility] Blood specimen (specimen) 10/03/2018 12:30 PM NURSING AGENCY MANAGER 10/03/2018 2:14 PM NURSING AGENCY MANAGER us Lacey Perdue MD LAB BLOOD ORDERABLES Final R esult [facility] [address] [place], [place] [phone] * (ABNORMAL) Comprehensive metabolic panel (10/03/2018 12:30 PM NURSING AGENCY MANAGER) Sodium 139 136 - 145 mmol/L [facility] Potassium 3.8 3.5 - 5.1 mmol/L [facility] Chloride 103 98 - 107 mmol/L [facility] CO2 24 21 - 32 mmol/L [facility] Glucose 127(H) 74 - 106 mg/dL [facility] BUN 10 7.0 - 18.0 mg/dL [facility] Creatinine 1.07 0.70 - 1.30 mg/dL [facility] Calcium 8.6 8.5 - 10.1 mg/dL [facility] Total Protein 7.2 6.4 - 8.2 g/dL [facility] Albumin 3.8 3.4 - 5.0 g/dL [facility] [employer] Bilirubin Total 0.5 0.2 - 1.0 mg/dL [facility] Alkaline Phosphatase 100 56 - 119 U/L [facility] AST 54(H) 15 - 37 U/L [facility] ALT 77 12 - 78 U/L [facility] Creatinine Based eGFR >60 [facility] Comment: GFR REFERENCE RANGE: >60 mL/min/1.73m2 -- An eGFR of > than, or = to 60, may indicate normal renal function or mildly decreased GFR. EGFR /Nicaraguan >60 [facility] Comment: -- An eGFR of > than, or = to 60, may indicate normal renal function or mildly decreased GFR. Blood specimen (specimen) 10/03/2018 12:30 PM NURSING AGENCY MANAGER 10/03/2018 2:14 PM NURSING AGENCY MANAGER us Lacey Perdue MD LAB BLOOD ORDERABLES Final R esult [facility] [address] [place], [place] [phone] * CBC and differential (10/03/2018 12:30 PM NURSING AGENCY MANAGER) WBC 7.73 4.00 - 11.00 th/mm3 [facility] RBC 5.24 4.50 - 6.50 mill/mm3 [facility] HGB 15.5 13.8 - 18.0 g/dL [facility] HCT 46.2 40.0 - 54.0 % [facility] MCV 88.2 76 - 99 fL [facility] MCH 29.6 27.0 - 32.0 pg [facility] MCHC 33.5 30.0 - 35.0 g/dL [facility] Platelets 195 135 - 470 th/mm3 [facility] RDW 13.5 11.0 - 17.0 % [facility] MPV 9.8 8.0 - 12.5 fL [facility] Differential Type AUTOMATED DIFFERENTIAL [facility] Neutrophil % 55.2 45.0 - 75.0 % [facility] Lymphocytes % 30.3 20.0 - 45.0 % [facility] Monocyte % 9.7 0.0 - 10.0 % [facility] Eosinophils Relative % 4.1 0.0 - 5.0 % [facility] Basophils % 0.4 0.0 - 2.0 % [facility] Immature Granulocytes% 0.3 0.0 - 1.6 % [facility] Neutrophils Absolute 4.27 2.00 - 7.900 th/mm3 [facility] Lymphocytes Absolute 2.34 1.00 - 4.00 th/mm3 [facility] Monos Absolute 0.75 0.0 - 0.80 th/mm3 [facility] Eosinophils Absolute Count 0.32 0.00 - 0.40 th/mm3 [facility] Basophils Absolute 0.03 0.00 - 0.10 th/mm3 [facility] Immature Granulocytes Absolute 0.02 0.0 - 0.20 th/mm3 [facility] Blood specimen (specimen) BLOOD SPECIMEN / Unknown 10/03/2018 12:30 PM NURSING AGENCY MANAGER 10/03/2018 2:14 PM NURSING AGENCY MANAGER us Lacey Perdue MD LAB BLOOD ORDERABLES Edited Result - Final [facility] [address] [place], [place] [phone] * (ABNORMAL) C-reactive protein (10/03/2018 12:30 PM NURSING AGENCY MANAGER) CRP <0.20(L) 0.2 - 0.9 mg/dL [facility] Blood specimen (specimen) 10/03/2018 12:30 PM NURSING AGENCY MANAGER 10/03/2018 2:14 PM NURSING AGENCY MANAGER us Lacey Perdue MD LAB BLOOD ORDERABLES Final R esult [facility] [address] [place], [place] [phone] documented in this encounter Visit Diagnoses Diagnosis Encounter for long-term (current) use of antibiotics- Primary Primary localized osteoarthrosis Primary localized osteoarthrosis, unspecified site documented in this encounter Care Teams Pbx Teacher Relationship Specialty Start Date End Date Coco Leos PA-C [address] [place] [address] PCP - General Physician Antenna Machine Operator 10/25/17 11/24/18 Denny Dey DO [address] [place] [address] Referring Physician Orthopedic Surgery 06/28/18 9 Lacey Perdue MD [address] [phone] Referring Physician Infectious Diseases 06/28/18 documented as of this encounter
--- OUTSIDE RECORDS SUMMARY | 2024-11-23 10:20 | XMS_ITS | Encounter Summary ---
Author Organization [employer] Address [address] [place] [address] Care Team Providers Care Bleach Liquor Maker Name Role Phone Coco Leos PA-C Primary Care Provider [phone] Denny Dey DO Unavailable [phone] Lacey Perdue MD Unavailable [phone] Reason for Visit * Reason Onset Date Comments MRI appt 09/02/2018 Encounter Details Date Type Department Care Team (Late st Contact Info) Description 09/02/[address] [address] Yael Sim, BLOCK TRIMMER [address] [facility] [address] [place], [place] [phone] MRI appt Social History Tobacco Use Types [...] No 10/25/2017 2:00 PM Deonna Padilla, METAL ENGINEERING PROCESS WORKER * Do you have serious difficulty walking or climbing stairs? (5 years old or older) Answer Date of Assessment Author No 10/25/2017 2:00 PM Deonna aPdilla, METAL ENGINEERING PROCESS WORKER * Do you have difficulty dressing or bathing? (5 years old or older) Answer Date of Assessment Author No 10/25/2017 2:00 PM Deonna Padilla, METAL ENGINEERING PROCESS WORKER * Because of a physical, mental, or emotional condition, do you have difficulty doing errands alone such as visiting a doctor's office or shopping? (15 years old or older) Answer Date of Assessment Author No 10/25/2017 2:00 PM Deonna Padilla, METAL ENGINEERING PROCESS WORKER documented as of this encounter Mental Status * Because of a physical, mental, or emotional condition, do you have serious difficulty concentrating, remembering, or making decisions? (5 years old or older) Answer Entry Date Author No 10/25/2017 2:00 PM Deonna Padilla, METAL ENGINEERING PROCESS WORKER documented in this encounter Miscellaneous Notes [...] on filedocumented in this encounter Care Teams Bleach Liquor Maker Relationship Specialty Start Date End Date Coco Leos PA-C [address] [place] [address] PCP - General Physician Manager Software Development 10/25/17 11/24/18 Denny Dey DO [address] [place] [address] Referring Physician Orthopedic Surgery 06/28/18 9 Lacey Perdue MD [address] [phone] Referring Physician Infectious Diseases 06/28/18 documented as of this encounter
--- OUTSIDE RECORDS SUMMARY | 2024-11-23 10:20 | XMS_ITS | Encounter Summary ---
Author Organization [employer] Address [address] [place] [address] Care Team Providers Care Resident Services Supervisor Name Role Phone Coco Leos PA-C Primary Care Provider [phone] Denny Dey DO Unavailable [phone] Lacey Perdue MD Unavailable [phone] Encounter Details Date Type Department Care Team (Late st Contact Info) Description 10/04/[address] [facility] [address] [place] [address] Yael Sim, SENIOR JAVA SOFTWARE ENGINEER [address] [place] [address] [address] [place] [address] Social History Tobacco Use Types [...] of Assessment Author No 10/25/2017 2:00 PM FABRIC STRETCHER Galvan, Am y S, QUILLER OPERATOR * Do you have difficulty dressing or bathing? (5 years old or older) Answer Date of Assessment Author No 10/25/2017 2:00 PM FABRIC STRETCHER Galvan, Am y S, QUILLER OPERATOR * Because of a physical, mental, or emotional condition, do you have difficulty doing errands alone such as visiting a doctor's office or shopping? (15 years old or older) Answer Date of Assessment Author No 10/25/2017 2:00 PM FABRIC STRETCHER Galvan, Am y S, QUILLER OPERATOR documented as of this encounter Mental Status * Because of a physical, mental, or emotional condition, do you have serious difficulty concentrating, remembering, or making decisions? (5 years old or older) Answer Entry Date Author No 10/25/2017 2:00 PM FABRIC STRETCHER Galvan, Am y S, QUILLER OPERATOR documented in this encounter Plan of Treatment Not on file documented as of this encounter Goals Goal Patient Goal Type Associated Problems Recent Progress Patient-Stated? Author Blood Pressure < 140/90 Blood Pressure 134/86(2022 2:25 PM CDT) No Leonard Jasso APRN documented as of this encounter Visit Diagnoses Not on filedocumented in this encounter Care Teams Resident Services Supervisor Relationship Specialty Start Date End Date Coco Leos PA-C [address] [place] [address] PCP - General Physician Shift Supervisor 10/25/17 11/24/18 Denny Dey DO [address] [place] [address] Referring Physician Orthopedic Surgery 06/28/18 9 Lacey Perdue MD [address] [phone] Referring Physician Infectious Diseases 06/28/18 documented as of this encounter
--- OUTSIDE RECORDS SUMMARY | 2024-11-23 10:20 | XMS_ITS | Encounter Summary ---
Author Organization Ring Address [address] [place] [address] Care Team Providers Care Baggage Agent Name Role Phone Coco Leos PA-C Primary Care Provider [phone] Denny Dey DO Unavailable [phone] Lacey Perdue MD Unavailable [phone] Encounter Details Date Type Department Care Team (Latest Contact Info) Description 09/26/2018 10:10 AM AUXILIARY OPERATOR - 09/26/2018 11:59 PM AUXILIARY OPERATOR Hospital Encounter [facility] [address] [place] [phone] Encounter for long-term (current) use of antibiotics; [...] of Assessment Author No 10/25/2017 2:00 PM AUXILIARY OPERATOR Galvan, Am y S, MARINE ERECTOR * Do you have serious difficulty walking [...] 140/90 Blood Pressure 134/86(2022 2:25 PM CDT) Lenoard Montiel APRN documented as of this encounter Procedures Procedure Name Priority Date/Time Associated Diagnosis Comments SEDIMENTATION RATE Routine 09/26/2018 10 :10 AM AUXILIARY OPERATOR Encounter for long-term (current) use of antibiotics Primary localized osteoarthrosis CBC AND DIFFERENTIAL Routine 09/26/2018 10:10 AM AUXILIARY OPERATOR Encounter for long-term (current) use of antibiotics Primary localized osteoarthrosis C-REACTIVE PROTEIN Routine 09/26/2018 10 :10 AM AUXILIARY OPERATOR Encounter for long-term (current) use of antibiotics Primary localized osteoarthrosis VANCOMYCIN, TROUGH Routine 09/26/2018 10 :10 AM AUXILIARY OPERATOR Encounter for long-term (current) use of antibiotics Primary localized osteoarthrosis COMPREHENSIVE METABOLIC PANEL Routine 09/26/2018 10:10 AM AUXILIARY OPERATOR Encounter for long-term (current) use of antibiotics Primary localized osteoarthrosis BASIC METABOLIC PANEL Routine 09/26/2018 10:10 AM AUXILIARY OPERATOR Encounter for long-term (current) use of antibiotics Primary localized osteoarthrosis documented in this encounter Results * C-reactive protein (09/26/2018 10:10 AM AUXILIARY OPERATOR) CRP 0.60 0.2 - 0.9 mg/dL [facility] Blood specimen (specimen) 09/26/2018 10:10 AM AUXILIARY OPERATOR 09/26/2018 2:16 PM AUXILIARY OPERATOR us Lacey Perdue MD LAB BLOOD ORDERABLES Final R esult [facility] [address] [place], [place] [phone] * (ABNORMAL) Comprehensive metabolic panel (09/26/2018 10:10 AM AUXILIARY OPERATOR) Sodium 140 136 - 145 mmol/L [facility] [employer] [facility] Potassium 4.2 3.5 - 5.1 mmol/L [facility] [employer] [facility] Chloride 101 98 - 107 mmol/L [facility] [employer] [facility] CO2 29 21 - 32 mmol/L [facility] [employer] [facility] Glucose 106 74 - 106 mg/dL [facility] BUN 14 7.0 - 18.0 mg/dL [facility] Creatinine 0.94 0.70 - 1.30 mg/dL [facility] Calcium 8.9 8.5 - 10.1 mg/dL [facility] [place] [facility] Total Protein 7.2 6.4 - 8.2 g/dL [facility] Albumin 3.8 3.4 - 5.0 g/dL [facility] Bilirubin Total 0.7 0.2 - 1.0 mg/dL [facility] [place] [facility] Alkaline Phosphatase 98 56 - 119 U/L [facility] AST 50(H) 15 - 37 U/L [facility] ALT 78 12 - 78 U/L [facility] Creatinine Based eGFR >60 [facility] Comment: GFR REFERENCE RANGE: >60 mL/min/1.73m2 -- An eGFR of > than, or = to 60, may indicate normal renal function or mildly decreased GFR. EGFR /Cambodian >60 [facility] [employer] [facility] Comment: -- An eGFR of > than, or = to 60, may indicate normal renal function or mildly decreased GFR. Blood specimen (specimen) 09/26/2018 10:10 AM AUXILIARY OPERATOR 09/26/2018 2:16 PM AUXILIARY OPERATOR us Lacey Perdue MD LAB BLOOD ORDERABLES Final R esult [facility] [address] [place], [place] [phone] * (ABNORMAL) Sedimentation rate (09/26/2018 10:10 AM AUXILIARY OPERATOR) Sedimentation Rate 29(H) 0 - 20 mm/hr [facility] [employer] [facility] Blood specimen (specimen) 09/26/2018 10:10 AM AUXILIARY OPERATOR 09/26/2018 2:16 PM AUXILIARY OPERATOR us Lacey Perdue MD LAB BLOOD ORDERABLES Final R esult [facility] [address] [place], [place] [phone] * (ABNORMAL) CBC and differential (09/26/2018 10:10 AM AUXILIARY OPERATOR) WBC 8.05 4.00 - 11.00 th/mm3 [facility] RBC 5.05 4.50 - 6.50 mill/mm3 [facility] HGB 14.9 13.8 - 18.0 g/dL [facility] HCT 45.9 40.0 - 54.0 % [facility] MCV 90.9 76 - 99 fL [facility] MCH 29.5 27.0 - 32.0 pg [facility] MCHC 32.5 30.0 - 35.0 g/dL [facility] Platelets 187 135 - 470 th/mm3 [facility] RDW 13.5 11.0 - 17.0 % [facility] MPV 9.7 8.0 - 12.5 fL [facility] Differential Type AUTOMATED DIFFERENTIAL [facility] [employer] [facility] Neutrophil % 56.3 45.0 - 75.0 % [facility] Lymphocytes % 25.3 20.0 - 45.0 % [facility] Monocyte % 12.8(H) 0.0 - 10.0 % [facility] Eosinophils Relative % 5.0 0.0 - 5.0 % [facility] Basophils % 0.5 0.0 - 2.0 % [facility] [employer] Immature Granulocytes% 0.1 0.0 - 1.6 % [facility] Neutrophils Absolute 4.53 2.00 - 7.900 th/mm3 [facility] Lymphocytes Absolute 2.04 1.00 - 4.00 th/mm3 [facility] Monos Absolute 1.03(H) 0.0 - 0.80 th/mm3 [facility] Eosinophils Absolute Count 0.40 0.00 - 0.40 th/mm3 [facility] Basophils Absolute 0.04 0.00 - 0.10 th/mm3 [facility] Immature Granulocytes Absolute 0.01 0.0 - 0.20 th/mm3 [facility] Blood specimen (specimen) BLOOD SPECIMEN / Unknown 09/26/2018 10:10 AM AUXILIARY OPERATOR 09/26/2018 2:16 PM AUXILIARY OPERATOR us Lacey Perdue MD LAB BLOOD ORDERABLES Final R esult [facility] [address] [place], [place] [phone] * Vancomycin, trough (09/26/2018 10:10 AM AUXILIARY OPERATOR) Vancomycin Trough 8.7 5.0 - 10.0 mcg/mL [facility] Blood specimen (specimen) 09/26/2018 10:10 AM AUXILIARY OPERATOR 09/26/2018 11:20 AM AUXILIARY OPERATOR us Lacey Perdue MD LAB BLOOD ORDERABLES Final R esult [facility] [employer] [facility] [address] [place], [place] [phone] * Basic metabolic panel (09/26/2018 10:10 AM AUXILIARY OPERATOR) Sodium 140 136 - 145 mmol/L [facility] Potassium 4.2 3.5 - 5.1 mmol/L [facility] Chloride 101 98 - 107 mmol/L [facility] CO2 29 21 - 32 mmol/L [facility] Glucose 106 74 - 106 mg/dL [facility] BUN 14 7.0 - 18.0 mg/dL [facility] Creatinine 0.94 0.70 - 1.30 mg/dL [facility] Calcium 8.9 8.5 - 10.1 mg/dL [facility] Creatinine Based eGFR >60 [facility] Comment: GFR REFERENCE RANGE: >60 mL/min/1.73m2 -- An eGFR of > than, or = to 60, may indicate normal renal function or mildly decreased GFR. EGFR /Karla n >60 [facility] Comment: -- An eGFR of > than, or = to 60, may indicate normal renal function or mildly decreased GFR. Blood specimen (specimen) 09/26/2018 10:10 AM AUXILIARY OPERATOR 09/26/2018 11:20 AM AUXILIARY OPERATOR us Lacey Perdue MD LAB BLOOD ORDERABLES Final R esult [facility] [address] [place], [place] [phone] documented in this encounter Visit Diagnoses Diagnosis Encounter for long-term (current) use of antibiotics Primary localized osteoarthrosis Primary localized osteoarthrosis, unspecified site documented in this encounter Care Teams Baggage Agent Relationship Specialty Start Date End Date Coco Leos PA-C [address] [place] [address] PCP - General Physician Pin Maker 10/25/17 11/24/18 Denny Dey DO [address] [place] [id number] Referring Physician Orthopedic Surgery 06/28/18 9 Lacey Perdue MD [address] [phone] Referring Physician Infectious Diseases 06/28/18 documented as of this encounter
--- OUTSIDE RECORDS SUMMARY | 2024-11-23 10:20 | XMS_ITS | Encounter Summary ---
Author Organization [employer] Address [address] [place] [address] Care Team Providers Care Machine Operator Packaging Name Role Phone Coco Leos PA-C Primary Care Provider [phone] Denny Dey DO Unavailable [phone] Lacey Perdue MD Unavailable [phone] Encounter Details Date Type Department Care Team (Latest Contact Info) Description 10/28/2018 12:15 PM TRIP FOLLOWER - 10/28/2018 11:59 PM TRIP FOLLOWER Hospital Encounter [facility] [address] [place] [phone] Encounter for long-term (current) use of antibiotics; [...] of Assessment Author No 10/25/2017 2:00 PM TRIP FOLLOWER Galvan, Am y S, EXPERIENCE PLANNING STRATEGIST * Do you have serious difficulty [...] VANCOMYCIN, TROUGH Routine 10/28/2018 12 :15 PM TRIP FOLLOWER Encounter for long-term (current) use of antibiotics Primary localized osteoarthrosis BASIC METABOLIC PANEL Routine 10/28/2018 12:15 PM TRIP FOLLOWER Encounter for long-term (current) use of antibiotics Primary localized osteoarthrosis documented in this encounter Results * Vancomycin, trough (10/28/2018 12:15 PM TRIP FOLLOWER) Vancomycin Trough 7.1 5.0 - 10.0 mcg/mL 10/28/2018 2:[address] [facility] Serum specimen (specimen) 10/28/2018 12:15 PM TRIP FOLLOWER 10/28/2018 1:04 PM TRIP FOLLOWER us Lacey Perdue MD LAB BLOOD ORDERABLES Final R esult [facility] [address] [place], [place] * (ABNORMAL) Basic metabolic panel (10/28/2018 12:15 PM TRIP FOLLOWER) Sodium 140 136 - 145 mmol/L 10/28/2018 2:[address] [facility] [employer] [facility] Potassium 4.0 3.5 - 5.1 mmol/L 10/28/2018 2:[address] [facility] [employer] [facility] Chloride 104 98 - 107 mmol/L 10/28/2018 2:[address] [facility] CO2 25 21 - 32 mmol/L 10/28/2018 2:[address] [facility] Glucose 145(H) 74 - 106 mg/dL 10/28/2018 2:[address] [facility] [employer] [facility] BUN 16 7.0 - 18.0 mg/dL 10/28/2018 2:[address] [facility] [place] [place] [facility] Creatinine 1.05 0.70 - 1.30 mg/dL 10/28/2018 2:[address] [facility] [place] [facility] Calcium 8.9 8.5 - 10.1 mg/dL 10/28/2018 2:[address] [facility] Creatinine Based eGFR >60 10/28/2018 2:[address] [facility] [employer] [facility] Comment: GFR REFERENCE RANGE: >60 mL/min/1.73m2 -- An eGFR of > than, or = to 60, may indicate normal renal function or mildly decreased GFR. EGFR /Karla n >60 10/28/2018 2:[address] [facility] [place] [facility] Comment: -- An eGFR of > than, or = to 60, may indicate normal renal function or mildly decreased GFR. Serum specimen (specimen) 10/28/2018 12:15 PM TRIP FOLLOWER 10/28/2018 1:04 PM TRIP FOLLOWER us Lacey Perdue MD LAB BLOOD ORDERABLES Final R esult [facility] [employer] [facility] [address] [place], [place] documented in this encounter Visit Diagnoses Diagnosis Encounter for long-term (current) use of antibiotics Primary localized osteoarthrosis Primary localized osteoarthrosis, unspecified site documented in this encounter Care Teams Machine Operator Packaging Relationship Specialty Start Date End Date Coco Leos PA-C [address] [place] [address] PCP - General Physician Senior Data Developer 10/25/17 11/24/18 Denny Dey DO [address] [place] [address] Referring Physician Orthopedic Surgery 06/28/18 9 Lacey Perdue MD [address] [phone] Referring Physician Infectious Diseases 06/28/18 documented as of this encounter
--- OUTSIDE RECORDS SUMMARY | 2024-11-23 10:20 | XMS_ITS | Encounter Summary ---
Author Organization [employer] Address [address] [place] [address] Care Team Providers Care Clerical Manager Name Role Phone Coco Leos PA-C Primary Care Provider [phone] Denny Dey DO Unavailable [phone] Lacey Perdue MD Unavailable [phone] Encounter Details Date Type Department Care Team (Latest Contact Info) Description 10/03/2018 12:30 PM LOFT WORKER PILE DRIVING - 10/03/2018 11:59 PM LOFT WORKER PILE DRIVING Hospital Encounter [facility] [address] [place] [phone] Encounter for long-term (current) use of antibiotics; [...] of Assessment Author No 10/25/2017 2:00 PM LOFT WORKER PILE DRIVING Galvan, Am y S, INSULATION BLOWER * Do you have serious difficulty walking [...] SEDIMENTATION RATE Routine 10/03/2018 12 :30 PM LOFT WORKER PILE DRIVING Encounter for long-term (current) use of antibiotics Primary localized osteoarthrosis CBC AND DIFFERENTIAL Routine 10/03/2018 12:30 PM LOFT WORKER PILE DRIVING Encounter for long-term (current) use of antibiotics Primary localized osteoarthrosis C-REACTIVE PROTEIN Routine 10/03/2018 12 :30 PM LOFT WORKER PILE DRIVING Encounter for long-term (current) use of antibiotics Primary localized osteoarthrosis VANCOMYCIN, TROUGH Routine 10/03/2018 12 :30 PM LOFT WORKER PILE DRIVING Encounter for long-term (current) use of antibiotics Primary localized osteoarthrosis COMPREHENSIVE METABOLIC PANEL Routine 10/03/2018 12:30 PM LOFT WORKER PILE DRIVING Encounter for long-term (current) use of antibiotics Primary localized osteoarthrosis documented in this encounter Results * Vancomycin, trough (10/03/2018 12:30 PM LOFT WORKER PILE DRIVING) Vancomycin Trough 9.4 5.0 - 10.0 mcg/mL [facility] Blood specimen (specimen) 10/03/2018 12:30 PM LOFT WORKER PILE DRIVING 10/03/2018 2:14 PM LOFT WORKER PILE DRIVING us Lacey Perdue MD LAB BLOOD ORDERABLES Final R esult [facility] [address] [place], [place] [phone] * (ABNORMAL) Sedimentation rate (10/03/2018 12:30 PM LOFT WORKER PILE DRIVING) Sedimentation Rate 25(H) 0 - 20 mm/hr [facility] Blood specimen (specimen) 10/03/2018 12:30 PM LOFT WORKER PILE DRIVING 10/03/2018 2:14 PM LOFT WORKER PILE DRIVING us Lacey Perdue MD LAB BLOOD ORDERABLES Final R esult [facility] [address] [place], [place] [phone] * (ABNORMAL) Comprehensive metabolic panel (10/03/2018 12:30 PM LOFT WORKER PILE DRIVING) Sodium 139 136 - 145 mmol/L [facility] Potassium 3.8 3.5 - 5.1 mmol/L [facility] [employer] [facility] Chloride 103 98 - 107 mmol/L [facility] [employer] [facility] CO2 24 21 - 32 mmol/L [facility] Glucose 127(H) 74 - 106 mg/dL [facility] [employer] [facility] BUN 10 7.0 - 18.0 mg/dL [facility] Creatinine 1.07 0.70 - 1.30 mg/dL [facility] Calcium 8.6 8.5 - 10.1 mg/dL [facility] [employer] [facility] Total Protein 7.2 6.4 - 8.2 g/dL [facility] FanKaveQUEST [facility] Albumin 3.8 3.4 - 5.0 g/dL [facility] Bilirubin Total 0.5 0.2 - 1.0 mg/dL [facility] Alkaline Phosphatase 100 56 - 119 U/L [facility] AST 54(H) 15 - 37 U/L [facility] [employer] [facility] ALT 77 12 - 78 U/L [facility] Creatinine Based eGFR >60 [facility] Comment: GFR REFERENCE RANGE: >60 mL/min/1.73m2 -- An eGFR of > than, or = to 60, may indicate normal renal function or mildly decreased GFR. EGFR /Lao >60 [facility] Comment: -- An eGFR of > than, or = to 60, may indicate normal renal function or mildly decreased GFR. Blood specimen (specimen) 10/03/2018 12:30 PM LOFT WORKER PILE DRIVING 10/03/2018 2:14 PM LOFT WORKER PILE DRIVING Lacey Perdue MD LAB BLOOD ORDERABLES Final R esult [facility] [address] [place], [place] [phone] * CBC and differential (10/03/2018 12:30 PM LOFT WORKER PILE DRIVING) WBC 7.73 4.00 - 11.00 th/mm3 [facility] RBC 5.24 4.50 - 6.50 mill/mm3 [facility] HGB 15.5 13.8 - 18.0 g/dL [facility] HCT 46.2 40.0 - 54.0 % [facility] MCV 88.2 76 - 99 fL [facility] MCH 29.6 27.0 - 32.0 pg [facility] MCHC 33.5 30.0 - 35.0 g/dL [facility] Platelets 195 135 - 470 th/mm3 [facility] RDW 13.5 11.0 - 17.0 % [facility] MPV 9.8 8.0 - 12.5 fL [facility] Differential Type AUTOMATED DIFFERENTIAL [facility] Neutrophil % 55.2 45.0 - 75.0 % [facility] Lymphocytes % 30.3 20.0 - 45.0 % [facility] Monocyte % 9.7 0.0 - 10.0 % [facility] Eosinophils Relative % 4.1 0.0 - 5.0 % [facility] Basophils % 0.4 0.0 - 2.0 % [facility] Immature Granulocytes% 0.3 0.0 - 1.6 % [facility] Neutrophils Absolute 4.27 2.00 - 7.900 th/mm3 [facility] Lymphocytes Absolute 2.34 1.00 - 4.00 th/mm3 [facility] Monos Absolute 0.75 0.0 - 0.80 th/mm3 [facility] Eosinophils Absolute Count 0.32 0.00 - 0.40 th/mm3 [facility] Basophils Absolute 0.03 0.00 - 0.10 th/mm3 [facility] Immature Granulocytes Absolute 0.02 0.0 - 0.20 th/mm3 [facility] Blood specimen (specimen) BLOOD SPECIMEN / Unknown 10/03/2018 12:30 PM LOFT WORKER PILE DRIVING 10/03/2018 2:14 PM LOFT WORKER PILE DRIVING us Lacey Perdue MD LAB BLOOD ORDERABLES Edited Result - Final [facility] [address] [place], [place] [phone] * (ABNORMAL) C-reactive protein (10/03/2018 12:30 PM LOFT WORKER PILE DRIVING) CRP <0.20(L) 0.2 - 0.9 mg/dL [facility] [employer] LAB Blood specimen (specimen) 10/03/2018 12:30 PM LOFT WORKER PILE DRIVING 10/03/2018 2:14 PM LOFT WORKER PILE DRIVING us Lacey Perdue MD LAB BLOOD ORDERABLES Final R esult [facility] [address] [place], [place] [phone] documented in this encounter Visit Diagnoses Diagnosis Encounter for long-term (current) use of antibiotics Primary localized osteoarthrosis Primary localized osteoarthrosis, unspecified site documented in this encounter Care Teams Clerical Manager Relationship Specialty Start Date End Date Coco Leos PA-C [address] [place] [id number] PCP - General Physician Paint Supervisor 10/25/17 11/24/18 Denny Dey DO [address] [place] [address] Referring Physician Orthopedic Surgery 06/28/18 9 Lacey Perdue MD [address] [phone] Referring Physician Infectious Diseases 06/28/18 documented as of this encounter
--- OUTSIDE RECORDS SUMMARY | 2024-11-23 10:20 | XMS_ITS | Encounter Summary ---
Author Organization [employer] Address [address] [place] [address] Care Team Providers Care Automotive Salesperson Name Role Phone RobertbetoGraceCoco Katt WISE Primary Care Provider [phone] Denny Dey DO Unavailable [phone] Lacey Perdue MD Unavailable Encounter Details Date Type Department Care Team (Latest Contact Info) Description 09/26/2018 Transcribe Orders [facility] [address] [place] [address] Lacey Perdue MD [address] [address] Encounter for long-term (current) use [...] Assessment Author No 10/25/2017 2:00 PM SUPERVISOR WOOL SHEARING Deonna Galvan, GEORGE * Are you blind [...] Results * C-reactive protein (09/26/2018 10:10 AM SUPERVISOR WOOL SHEARING) [facility] CRP 0.60 0.2 - 0.9 mg/dL [facility] Blood specimen (specimen) 09/26/2018 10:10 AM SUPERVISOR WOOL SHEARING 09/26/2018 2:16 PM SUPERVISOR WOOL SHEARING us Lacey Perdue MD LAB BLOOD ORDERABLES Final R esult [facility] [address] [place], [place] [phone] * (ABNORMAL) Comprehensive metabolic panel (09/26/2018 10:10 AM SUPERVISOR WOOL SHEARING) Sodium 140 136 - 145 mmol/L [facility] [place] [facility] Potassium 4.2 3.5 - 5.1 mmol/L [facility] [place] [facility] Chloride 101 98 - 107 mmol/L [facility] [employer] [facility] CO2 29 21 - 32 mmol/L [facility] [employer] [facility] Glucose 106 74 - 106 mg/dL [facility] [employer] [facility] BUN 14 7.0 - 18.0 mg/dL [facility] [employer] [facility] Creatinine 0.94 0.70 - 1.30 mg/dL [facility] Calcium 8.9 8.5 - 10.1 mg/dL [facility] [employer] [facility] Total Protein 7.2 6.4 - 8.2 g/dL [facility] [employer] [facility] Albumin 3.8 3.4 - 5.0 g/dL [facility] Bilirubin Total 0.7 0.2 - 1.0 mg/dL [facility] [place] [facility] Alkaline Phosphatase 98 56 - 119 U/L [facility] [place] [facility] AST 50(H) 15 - 37 U/L [facility] [place] [facility] ALT 78 12 - 78 U/L [facility] Creatinine Based eGFR >60 [facility] Comment: GFR REFERENCE RANGE: >60 mL/min/1.73m2 -- An eGFR of > than, or = to 60, may indicate normal renal function or mildly decreased GFR. EGFR /Albanian >60 [facility] Comment: -- An eGFR of > than, or = to 60, may indicate normal renal function or mildly decreased GFR. Blood specimen (specimen) 09/26/2018 10:10 AM SUPERVISOR WOOL SHEARING 09/26/2018 2:16 PM SUPERVISOR WOOL SHEARING us Lacey Perdue MD LAB BLOOD ORDERABLES Final R esult [facility] [address] [place], [place] [phone] * (ABNORMAL) Sedimentation rate (09/26/2018 10:10 AM SUPERVISOR WOOL SHEARING) Sedimentation Rate 29(H) 0 - 20 mm/hr [facility] [place] [facility] Blood specimen (specimen) 09/26/2018 10:10 AM SUPERVISOR WOOL SHEARING 09/26/2018 2:16 PM SUPERVISOR WOOL SHEARING us Lacey Perdue MD LAB BLOOD ORDERABLES Final R esult [facility] [employer] [facility] [address] [place], [place] [phone] * (ABNORMAL) CBC and differential (09/26/2018 10:10 AM SUPERVISOR WOOL SHEARING) WBC 8.05 4.00 - 11.00 th/mm3 [facility] [employer] [facility] RBC 5.05 4.50 - 6.50 mill/mm3 [facility] [employer] [facility] HGB 14.9 13.8 - 18.0 g/dL [facility] HCT 45.9 40.0 - 54.0 % [facility] MCV 90.9 76 - 99 fL [facility] MCH 29.5 27.0 - 32.0 pg [facility] MCHC 32.5 30.0 - 35.0 g/dL [facility] Platelets 187 135 - 470 th/mm3 [facility] RDW 13.5 11.0 - 17.0 % [facility] MPV 9.7 8.0 - 12.5 fL [facility] Differential Type AUTOMATED DIFFERENTIAL [facility] Neutrophil % 56.3 45.0 - 75.0 % [facility] Lymphocytes % 25.3 20.0 - 45.0 % [facility] Monocyte % 12.8(H) 0.0 - 10.0 % [facility] Eosinophils Relative % 5.0 0.0 - 5.0 % [facility] Basophils % 0.5 0.0 - 2.0 % [facility] Immature Granulocytes% 0.1 0.0 - 1.6 % [facility] Neutrophils Absolute 4.53 2.00 - 7.900 th/mm3 [facility] Lymphocytes Absolute 2.04 1.00 - 4.00 th/mm3 [facility] Monos Absolute 1.03(H) 0.0 - 0.80 th/mm3 [facility] Eosinophils Absolute Count 0.40 0.00 - 0.40 th/mm3 [facility] Basophils Absolute 0.04 0.00 - 0.10 th/mm3 [facility] Immature Granulocytes Absolute 0.01 0.0 - 0.20 th/mm3 [facility] Blood specimen (specimen) BLOOD SPECIMEN / Unknown 09/26/2018 10:10 AM SUPERVISOR WOOL SHEARING 09/26/2018 2:16 PM SUPERVISOR WOOL SHEARING us Lacey Perdue MD LAB BLOOD ORDERABLES Final R esult [facility] [address] [place] [address] documented in this encounter Visit Diagnoses Diagnosis Encounter for long-term (current) use of antibiotics- Primary Primary localized osteoarthrosis Primary localized osteoarthrosis, unspecified site documented in this encounter Care Teams Automotive Salesperson Relationship Specialty Start Date End Date Coco Leos PA-C [address] [place] [address] PCP - General Physician Cell Biology Scientist 10/25/17 11/24/18 Denny Dey DO [address] [place] [address]991 Referring Physician Orthopedic Surgery 8/14/18 10/1/1 9 Lacey Perdue MD [address] [phone] Referring Physician Infectious Diseases 06/28/18 documented as of this encounter
--- OUTSIDE RECORDS SUMMARY | 2024-11-23 10:20 | XMS_ITS | Encounter Summary ---
Author Organization [employer] Address [address] [place] [address] Care Team Providers Care Electrical Designer Name Role Phone Coco Leos PA-C Primary Care Provider [phone] Denny Dey DO Unavailable [phone] Lacey Perdue MD Unavailable [phone] Encounter Details Date Type Department Care Team (Latest Contact Info) Description 09/07/2018 Transcribe Orders [facility] [address] [place] [phone] Yanira Fung, WEAVE DEFECT CHARTING CLERK [address] [place] [address] Cellulitis of right foot (Primary Dx); Staphylococcal [...] CDT) Creatinine 0.93 0.70 - 1.30 mg/dL [facility] Creatinine Based eGFR >60 [facility] Comment: GFR REFERENCE RANGE: >60 mL/min/1.73m2 -- An eGFR of > than, or = to 60, may indicate normal renal function or mildly decreased GFR. EGFR /Karla n >60 [facility] Comment: -- An eGFR of > than, or = to 60, may indicate normal renal function or mildly decreased GFR. Blood specimen (specimen) 09/07/2018 9:08 AM CDT 09/07/2018 9:12 AM CDT Yanira Fung WEAVE DEFECT CHARTING CLERK LAB BLOOD ORDERABLES Final Res ult [facility] [address] [place], [place] [phone] documented in this encounter Visit Diagnoses Diagnosis Cellulitis of right foot- Primary Cellulitis and abscess of foot, except toes Staphylococcal arthritis, right ankle and foot documented in this encounter Care Teams Electrical Designer Relationship Specialty Start Date End Date Coco Leos PA-C [address] [place] [address] PCP - General Physician Feed And Farm Management Adviser 10/25/17 11/24/18 Denny Dey DO [address] [place] [address] Referring Physician Orthopedic Surgery 06/28/18 9 Lacey Perdue MD [address] [phone] Referring Physician Infectious Diseases 06/28/18 documented as of this encounter
--- OUTSIDE RECORDS SUMMARY | 2024-11-23 10:20 | XMS_ITS | Encounter Summary ---
Author Organization [employer] Address [address] [place] [address] Care Team Providers Care Business Intern Name Role Phone Coco Leos PA-C Primary Care Provider [phone] Denny Dey DO Unavailable [phone] Lacey Perdue MD Unavailable [phone] Encounter Details Date Type Department Care Team (Late st Contact Info) Description 10/04/2018 Orders Only [facility] [address] [place], [place] [phone] Leonard Jasso, SUPERVISOR STITCHING DEPARTMENT [address] [place], [place] [phone] Social History Tobacco Use Types Packs/Day Years [...] of Assessment Author No 10/25/2017 2:00 PM LIABILITY CLAIMS ADJUSTER Galvan, Am y S, WET PROCESS TECHNICIAN * Do you have serious difficulty walking or climbing stairs? (5 years old or older) Answer Date of Assessment Author No 10/25/2017 2:00 PM LIABILITY CLAIMS ADJUSTER Deonna Galvan y S, WET PROCESS TECHNICIAN * Do you have difficulty dressing or bathing? (5 years old or older) Answer Date of Assessment Author No 10/25/2017 2:00 PM LIABILITY CLAIMS ADJUSTER Cole Am y S, WET PROCESS TECHNICIAN * Because of a physical, mental, or emotional condition, do you have difficulty doing errands alone such as visiting a doctor's office or shopping? (15 years old or older) Answer Date of Assessment Author No 10/25/2017 2:00 PM LIABILITY CLAIMS ADJUSTER Cole Am y S, WET PROCESS TECHNICIAN documented as of this encounter Mental Status * Because of a physical, mental, or emotional condition, do you have serious difficulty concentrating, remembering, or making decisions? (5 years old or older) Answer Entry Date Author No 10/25/2017 2:00 PM LIABILITY CLAIMS ADJUSTER Deonna Galvan y S, WET PROCESS TECHNICIAN documented in this encounter Plan of Treatment Not on file documented as of this encounter Goals Goal Patient Goal Type Associated Problems Recent Progress Patient-Stated? Author Blood Pressure < 140/90 Blood Pressure 134/86(2022 2:25 PM CDT) No Leonard Jasso APRN documented as of this encounter Visit Diagnoses Not on filedocumented in this encounter Care Teams Business Intern Relationship Specialty Start Date End Date Coco Leos PA-C [address] [place] [address] PCP - General Physician Quenching Machine Operator 10/25/17 11/24/18 Denny Dey DO [address] [place] [address] Referring Physician Orthopedic Surgery 06/28/18 9 Lacey Perdue MD [address] [phone] Referring Physician Infectious Diseases 06/28/18 documented as of this encounter
--- OUTSIDE RECORDS SUMMARY | 2024-11-23 10:20 | XMS_ITS | Encounter Summary ---
Author Organization [employer] Address [address] [place] [address] Care Team Providers Care Liquid Sugar Fortifier Name Role Phone Coco Leos PA-C Primary Care Provider [phone] Denny Dey DO Unavailable [phone] Lacey Perdue MD Unavailable [phone] Reason for Visit * Reason Onset Date Comments Infectious disease doctor ordered meds 8 Encounter Details Date Type Department Care Team (Late st Contact Info) Description 10/04/[address] [address] Yael Sim, RELIABILITY TECHNICIAN [address] [facility] [address] [place] [address] Infectious disease doctor ordered meds [...] of Assessment Author No 10/25/2017 2:00 PM BEHAVIORAL SERVICES TECH Deonna Galvan, ASSISTANT CHIEF TRAIN DISPATCHER * Do you have serious difficulty walking or climbing stairs? (5 years old or older) Answer Date of Assessment Author No 10/25/2017 2:00 PM Deonna Padilla, ASSISTANT CHIEF TRAIN DISPATCHER * Do you have difficulty dressing or bathing? (5 years old or older) Answer Date of Assessment Author No 10/25/2017 2:00 PM Deonna Padilla, ASSISTANT CHIEF TRAIN DISPATCHER * Because of a physical, mental, [...] Yael Sim LPN - 10/04/2018 2:03 PM BEHAVIORAL SERVICES TECH Pt called to report the ATB's that the infectious disease doctor has scripted for pt. Pt sts that he does not believe that his leg is getting any better. 1,500mg fresenius every 12 hours original order. Now to take one tab every 8 hours. Ciprofloxacin 750mg one tab every 12 hours. Called [facility] Ojeda for clarification. Dr. ePrdue sts that pt missed appt today et that they called to reschedule appt. Pt was not told to contact pcp with medication update. Dr Perdue sts that ptis on IV vancomycin mixed per pharmacy, cipro 750 mg twice daily, et a probiotic blend with acidophilus. VIORAL SERVICES TECH documented in this encounter Plan of Treatment Not on file documented as of this encounter Goals Goal Patient Goal Type Associated Problems Recent Progress Patient-Stated? Author Blood Pressure < 140/90 Blood Pressure 134/86(2022 2:25 PM CDT) No Wasielewski, Leonard W, CONCRETE BOOM OPERATOR documented as of this encounter Visit Diagnoses Not on filedocumented in this encounter Care Teams Liquid Sugar Fortifier Relationship Specialty Start Date End Date Coco Leos PA-C [address] [place] [address] PCP - General Physician Roller Hand 10/25/17 11/24/18 Denny Dey DO [address] [place] [address] Referring Physician Orthopedic Surgery 06/28/18 9 Lacey Perdue MD [address] [phone] Referring Physician Infectious Diseases 06/28/18 documented as of this encounter
--- OUTSIDE RECORDS SUMMARY | 2024-11-23 10:20 | XMS_ITS | Encounter Summary ---
Author Organization [employer] Address [address] [place] [address] Care Team Providers Care Distribution Lead Name Role Phone Coco Leos PA-C Primary Care Provider [phone] Denny Dey DO Unavailable [phone] Lacey Perdue MD Unavailable [phone] Reason for Referral * Referral (1-3 days) - Closed Specialty Diagnoses / Procedures Referred By Contac t Referred To Contact Infectious Diseases Diagnoses Other acute osteomyelitis of right ankle Cellulitis of right foot Ligament rupture Yanira Fung NP Phone: tel: fax: REF [facility]OUS [facility] [address] [address] Phone: tel: fax: Referral ID Status Reason Start Date Expiration Date V isits Requested Visits Authorized [id number] Closed Specialty Services Required 09/08/2018 09/08/2019 1 1 * Referral (Routine) - Closed Specialty Diagnoses / Procedures Referred By Contac t Referred To Contact Orthopedic Surgery Diagnoses Other acute osteomyelitis of right ankle Cellulitis of right foot Ligament rupture Yanira Fung NP Phone: tel: fax: REF [facility] [address] [place] [address] Phone: tel: fax: Referral ID Status Reason Start Date Expiration Date V isits Requested Visits Authorized [id number] Closed Specialty Services Required 09/08/2018 09/08/2019 1 1 Encounter Details Date Type Department Care Team (Late st Contact Info) Description 09/08/2018 E-Prescribe [address] [phone] Yanira Fung NP [address] [place] [address] Other acute osteomyelitis of right ankle (Primary [...] Referral to Infectious Disease (09/19/2018) 09/19/2018 Narrative [facility] - 09/23/2018 3:40 PM LAND LAW EXAMINER See scanned results us Yanira Fung [facility] REFERRAL ORDERABLES Final Result [facility] [address] [phone] * Referral to Orthopedic Surgery (09/09/2018) 09/09/2018 us Yanira Fung [facility] [facility] [facility] REFERRAL ORDERABLES Final Result EXTERNAL NON UPH - NO INTERFACE documented in this encounter Visit Diagnoses Diagnosis Other acute osteomyelitis of right ankle- Primary Cellulitis of right foot Cellulitis and abscess of foot, except toes Ligament rupture Unspecified site of sprain and strain documented in this encounter Care Teams Distribution Lead Relationship Specialty Start Date End Date Coco Leos PA-C [address] [place] [address] PCP - General Physician Supervisor Phosphatic Fertilizer 10/25/17 11/24/18 Denny Dey DO [address] [place] [address] Referring Physician Orthopedic Surgery 06/28/18 9 Lacey Perdue MD [address] [phone] Referring Physician Infectious Diseases 06/28/18 documented as of this encounter
--- OUTSIDE RECORDS SUMMARY | 2024-11-23 10:20 | XMS_ITS | Encounter Summary ---
Author Organization [employer] Address [address] [place] [address] Care Team Providers Care Client Account Manager Name Role Phone Coco Leos PA-C Primary Care Provider [phone] Denny Dey DO Unavailable [phone] Lacey Perdue MD Unavailable [phone] Encounter Details Date Type Department Care Team (Latest Contact Info) Description 09/30/2018 10:30 AM ENDOSCOPY SUPPORT SPECIALIST - 09/30/2018 11:59 PM ENDOSCOPY SUPPORT SPECIALIST Hospital Encounter [facility] [address] [place] [phone] Encounter for long-term (current) use of antibiotics; [...] Assessment Author No 10/25/2017 2:00 PM ENDOSCOPY SUPPORT SPECIALIST Galvan, Am y S, COMMUNICATIONS PROFESSIONAL * Do you have serious difficulty walking [...] VANCOMYCIN, TROUGH Routine 09/30/2018 10 :30 AM ENDOSCOPY SUPPORT SPECIALIST Encounter for long-term (current) use of antibiotics Primary localized osteoarthrosis BASIC METABOLIC PANEL Routine 09/30/2018 10:30 AM ENDOSCOPY SUPPORT SPECIALIST Encounter for long-term (current) use of antibiotics Primary localized osteoarthrosis documented in this encounter Results * Vancomycin, trough (09/30/2018 10:30 AM ENDOSCOPY SUPPORT SPECIALIST) Vancomycin Trough 9.0 5.0 - 10.0 mcg/mL [facility] Blood specimen (specimen) 09/30/2018 10:30 AM ENDOSCOPY SUPPORT SPECIALIST 09/30/2018 11:35 AM ENDOSCOPY SUPPORT SPECIALIST us Lacey Perdue MD LAB BLOOD ORDERABLES Final R esult [facility] [address] [place], [place] [phone] * (ABNORMAL) Basic metabolic panel (09/30/2018 10:30 AM ENDOSCOPY SUPPORT SPECIALIST) Sodium 140 136 - 145 mmol/L [facility] Potassium 4.1 3.5 - 5.1 mmol/L [facility] Chloride 103 98 - 107 mmol/L [facility] CO2 27 21 - 32 mmol/L [facility] Glucose 128(H) 74 - 106 mg/dL [facility] BUN 10 7.0 - 18.0 mg/dL [facility] Creatinine 1.04 0.70 - 1.30 mg/dL [facility] [employer] [facility] Calcium 9.0 8.5 - 10.1 mg/dL [facility] Creatinine Based eGFR >60 [facility] Comment: GFR REFERENCE RANGE: >60 mL/min/1.73m2 -- An eGFR of > than, or = to 60, may indicate normal renal function or mildly decreased GFR. EGFR /Karla n >60 [facility] Comment: -- An eGFR of > than, or = to 60, may indicate normal renal function or mildly decreased GFR. Blood specimen (specimen) 09/30/2018 10:30 AM ENDOSCOPY SUPPORT SPECIALIST 09/30/2018 11:35 AM ENDOSCOPY SUPPORT SPECIALIST us Lacey Perdue MD LAB BLOOD ORDERABLES Final R esult [facility] [address] [place], [place] [phone] documented in this encounter Visit Diagnoses Diagnosis Encounter for long-term (current) use of antibiotics Primary localized osteoarthrosis Primary localized osteoarthrosis, unspecified site documented in this encounter Care Teams Client Account Manager Relationship Specialty Start Date End Date Coco Leos PA-C [address] [place] [address] PCP - General Physician Waiter/Waitress Head 10/25/17 11/24/18 Denny Dey DO [address] [place] [address] Referring Physician Orthopedic Surgery 06/28/18 9 Lacey Perdue MD [address] [place] [phone] Referring Physician Infectious Diseases 06/28/18 documented as of this encounter
--- OUTSIDE RECORDS SUMMARY | 2024-11-23 10:20 | XMS_ITS | Encounter Summary ---
Author Organization [employer] Address [address] [place] [address] Care Team Providers Care Information Systems Supervisor Name Role Phone RobertbetoGraceCoco Katt WISE Primary Care Provider [phone] Denny Dey DO Unavailable [phone] Lacey Perdue MD Unavailable Encounter Details Date Type Department Care Team (Latest Contact Info) Description 10/28/2018 Transcribe Orders [facility] [address] [place] [address] Lacey Perdue MD [address] [address] Encounter for long-term (current) use [...] of Assessment Author No 10/25/2017 2:00 PM TURFGRASS TECHNICIAN Deonna Galvan, GEORGE * Are you [...] Results * Vancomycin, trough (10/28/2018 12:15 PM TURFGRASS TECHNICIAN) Vancomycin Trough 7.1 5.0 - 10.0 mcg/mL 10/28/2018 2:04 PM TURFGRASS TECHNICIAN [facility] Serum specimen (specimen) 10/28/2018 12:15 PM TURFGRASS TECHNICIAN 10/28/2018 1:04 PM TURFGRASS TECHNICIAN us Lacey Perdue MD LAB BLOOD ORDERABLES Final R esult [facility] [address] [facility] [place] * (ABNORMAL) Basic metabolic panel (10/28/2018 12:15 PM TURFGRASS TECHNICIAN) Sodium 140 136 - 145 mmol/L 10/28/2018 2:04 PM [facility] CARTBee [employer] ([employer])[facility] Potassium 4.0 3.5 - 5.1 mmol/L 10/28/2018 2:04 PM [facility] Chloride 104 98 - 107 mmol/L 10/28/2018 2:04 PM [facility] CARTHAPipette [facility] CO2 25 21 - 32 mmol/L 10/28/2018 2:04 PM [facility] Glucose 145(H) 74 - 106 mg/dL 10/28/2018 2:04 PM [facility] BUN 16 7.0 - 18.0 mg/dL 10/28/2018 2:04 PM [facility]jiQUEST [facility] Creatinine 1.05 0.70 - 1.30 mg/dL 10/28/2018 2:04 PM [facility]QUEST [facility] Calcium 8.9 8.5 - 10.1 mg/dL 10/28/2018 2:04 PM [facility]QUEST [facility] Creatinine Based eGFR >60 10/28/2018 2:04 PM [facility]jiQUEST [facility] Comment: GFR REFERENCE RANGE: >60 mL/min/1.73m2 -- An eGFR of > than, or = to 60, may indicate normal renal function or mildly decreased GFR. EGFR /Karla n >60 10/28/2018 2:04 PM [facility] FunjiQUEST [facility] Comment: -- An eGFR of > than, or = to 60, may indicate normal renal function or mildly decreased GFR. Serum specimen (specimen) 10/28/2018 12:15 PM TURFGRASS TECHNICIAN 10/28/2018 1:04 PM TURFGRASS TECHNICIAN us Lacey Perdue MD LAB BLOOD ORDERABLES Final R esult [facility] [address] [place], [place] documented in this encounter Visit Diagnoses Diagnosis Encounter for long-term (current) use of antibiotics- Primary Primary localized osteoarthrosis Primary localized osteoarthrosis, unspecified site documented in this encounter Care Teams Information Systems Supervisor Relationship Specialty Start Date End Date Coco Leos PA-C [address] [place] [address] PCP - General Physician Sewing Techniques Demonstrator 10/25/17 11/24/18 Denny Dey DO [address] [place] [address] Referring Physician Orthopedic Surgery 06/28/18 9 Lacey Perdue MD [address] [phone] Referring Physician Infectious Diseases 06/28/18 documented as of this encounter
--- OUTSIDE RECORDS SUMMARY | 2024-11-23 10:20 | XMS_ITS | Encounter Summary ---
Author Organization [employer] Address [address] [place] [address] Care Team Providers Care Urban Planning Professor Name Role Phone RobertbetoGraceCoco Katt WISE Primary Care Provider [phone] Denny Dey DO Unavailable [phone] Lacey Perdue MD Unavailable Encounter Details Date Type Department Care Team (Latest Contact Info) Description 09/23/2018 Transcribe Orders [facility] [address] [place] [address] Lacey Perdue MD [address] [address] Encounter for long-term (current) use [...] Assessment Author No 10/25/2017 2:00 PM BUILDING CONSTRUCTION PROFESSOR Deonna Galvan, GEORGE * Are you blind [...] * (ABNORMAL) Vancomycin, trough (09/23/2018 11:00 AM BUILDING CONSTRUCTION PROFESSOR) Vancomycin Trough 25.8(H) 5.0 - 10.0 mcg/mL [facility] Blood specimen (specimen) 09/23/2018 11:00 AM BUILDING CONSTRUCTION PROFESSOR 09/23/2018 12:18 PM BUILDING CONSTRUCTION PROFESSOR us Lacey Perdue MD LAB BLOOD ORDERABLES Final R esult [facility] [address] [place], [place] [phone] * (ABNORMAL) Basic metabolic panel (09/23/2018 11:00 AM BUILDING CONSTRUCTION PROFESSOR) Sodium 138 136 - 145 mmol/L [facility] [employer] CorporationQUEST LAB Potassium 3.9 3.5 - 5.1 mmol/L [facility] [employer] SUN[facility] Chloride 101 98 - 107 mmol/L [facility] [employer] [facility] CO2 34(H) 21 - 32 mmol/L [facility] [employer] [facility] Glucose 136(H) 74 - 106 mg/dL [facility] [employer] [facility] BUN 12 7.0 - 18.0 mg/dL [facility] [employer] [facility] Creatinine 0.89 0.70 - 1.30 mg/dL [facility] [employer]MarketQUEST LAB Calcium 8.8 8.5 - 10.1 mg/dL [facility] [employer] CorporationQUEST LAB Creatinine Based eGFR >60 [facility] [employer] CorporationQUEST LAB Comment: GFR REFERENCE RANGE: >60 mL/min/1.73m2 -- An eGFR of > than, or = to 60, may indicate normal renal function or mildly decreased GFR. EGFR /Karla n >60 [facility] [employer] CorporationQUEST LAB Comment: -- An eGFR of > than, or = to 60, may indicate normal renal function or mildly decreased GFR. Blood specimen (specimen) 09/23/2018 11:00 AM BUILDING CONSTRUCTION PROFESSOR 09/23/2018 12:18 PM BUILDING CONSTRUCTION PROFESSOR us Lacey Perdue MD LAB BLOOD ORDERABLES Final R esult [facility] Corporation[facility] [address] [place], [place] [phone] documented in this encounter Visit Diagnoses Diagnosis Encounter for long-term (current) use of antibiotics- Primary Primary localized osteoarthrosis Primary localized osteoarthrosis, unspecified site documented in this encounter Care Teams Urban Planning Professor Relationship Specialty Start Date End Date Coco Leos PA-C [address] [place] [address] PCP - General Physician Senior Product Designer 10/25/17 11/24/18 Denny Dey DO [address] [place] [address] Referring Physician Orthopedic Surgery 06/28/18 9 Lacey Perdue MD [address] [phone] Referring Physician Infectious Diseases 06/28/18 documented as of this encounter
--- OUTSIDE RECORDS SUMMARY | 2024-11-23 10:20 | XMS_ITS | Encounter Summary ---
Author Organization [employer] Address [address] [place] [address] Care Team Providers Care Supplier Specialist Name Role Phone RobertbetoGraceCoco Katt WISE Primary Care Provider [phone] Denny Dey DO Unavailable [phone] Lacey Perdue MD Unavailable [phone] Encounter Details Date Type Department Care Team (Latest Contact Info) Description 09/26/2018 Transcribe Orders [facility] [address] [place] [address] Lacey Perdue MD [address] [address] Encounter for long-term (current) use [...] of Assessment Author No 10/25/2017 2:00 PM WATER SPONGER Deonna Galvan, GEORGE * Are you blind [...] Results * Vancomycin, trough (09/26/2018 10:10 AM WATER SPONGER) Pathologist [facility] Vancomycin Trough 8.7 5.0 - 10.0 mcg/mL [facility] Blood specimen (specimen) 09/26/2018 10:10 AM WATER SPONGER 09/26/2018 11:20 AM WATER SPONGER us Lacey Perdue MD LAB BLOOD ORDERABLES Final R esult [facility] [employer] [facility] [address] [place], [place] [phone] * Basic metabolic panel (09/26/2018 10:10 AM WATER SPONGER) Pathologist [facility] Sodium 140 136 - 145 mmol/L [facility] Potassium 4.2 3.5 - 5.1 mmol/L [facility] [employer] [facility] Chloride 101 98 - 107 mmol/L [facility] [employer] [facility] CO2 29 21 - 32 mmol/L [facility] Glucose 106 74 - 106 mg/dL [facility] [employer] [facility] BUN 14 7.0 - 18.0 mg/dL [facility] [employer] [facility] Creatinine 0.94 0.70 - 1.30 mg/dL [facility] [employer] [facility] Calcium 8.9 8.5 - 10.1 mg/dL [facility] [employer] [facility] Creatinine Based eGFR >60 [facility] Comment: GFR REFERENCE RANGE: >60 mL/min/1.73m2 -- An eGFR of > than, or = to 60, may indicate normal renal function or mildly decreased GFR. EGFR /Karla n >60 [facility] Comment: -- An eGFR of > than, or = to 60, may indicate normal renal function or mildly decreased GFR. Blood specimen (specimen) 09/26/2018 10:10 AM WATER SPONGER 09/26/2018 11:20 AM WATER SPONGER us Lacey Perdue MD LAB BLOOD ORDERABLES Final R esult [facility] [address] [place], [place] [phone] documented in this encounter Visit Diagnoses Diagnosis Encounter for long-term (current) use of antibiotics- Primary Primary localized osteoarthrosis Primary localized osteoarthrosis, unspecified site documented in this encounter Care Teams Supplier Specialist Relationship Specialty Start Date End Date Coco Leos PA-C [address] [place] [address] PCP - General Physician Advanced Practice Rn 10/25/17 11/24/18 Denny Dey DO [address] [place] [address] Referring Physician Orthopedic Surgery 06/28/18 9 Lacey Perdue MD [address] [phone] Referring Physician Infectious Diseases 06/28/18 documented as of this encounter
--- OUTSIDE RECORDS SUMMARY | 2024-11-23 10:20 | XMS_ITS | Encounter Summary ---
Author Organization [employer] Address [address] [place] [address] Care Team Providers Care Material Requisitioner Name Role Phone Coco Leos PA-C Primary Care Provider [phone] Denny Dey DO Unavailable [phone] Lacey Perdue MD Unavailable [phone] Reason for Visit * Reason Onset Date Comments script 10/07/2018 Encounter Details Date Type Department Care Team (Late st Contact Info) Description 10/07/[address] [address] Yael Sim, JAVA SYBASE DEVELOPER 1454 [facility] [address] [place] [address] script Social History Tobacco Use [...] of Assessment Author No 10/25/2017 2:00 PM CARGO AND CONTAINER INSPECTOR Galvan, Am y S, SEISMOLOGY TECHNICAL OFFICER * Do you have serious difficulty walking or climbing stairs? (5 years old or older) Answer Date of Assessment Author No 10/25/2017 2:00 PM CARGO AND CONTAINER INSPECTOR Deonna Galvan y S, SEISMOLOGY TECHNICAL OFFICER * Do you have difficulty dressing or bathing? (5 years old or older) Answer Date of Assessment Author No 10/25/2017 2:00 PM CARGO AND CONTAINER INSPECTOR Deonna Galvan y S, SEISMOLOGY TECHNICAL OFFICER * Because of a physical, mental, or emotional condition, do you have difficulty doing errands alone such as visiting a doctor's office or shopping? (15 years old or older) Answer Date of Assessment Author No 10/25/2017 2:00 PM CARGO AND CONTAINER INSPECTOR Deonna Galvan y S, SEISMOLOGY TECHNICAL OFFICER documented as of this encounter Mental Status * Because of a physical, mental, or emotional condition, do you have serious difficulty concentrating, remembering, or making decisions? (5 years old or older) Answer Entry Date Author No 10/25/2017 2:00 PM Deonna Padilla, SEISMOLOGY TECHNICAL OFFICER documented in this encounter Miscellaneous Notes * Telephone Encounter - Yael Sim LPN - 10/07/2018 8:16 AM CARGO AND CONTAINER INSPECTOR Pt called to inquire if clinic staff had taken script to pharmacy for pt. Instructed pt that he needs to strip picker script at clinic. Pt sts that he will be in sometime today to strip picker script. Pt sts that he had transportation problems last week et that he informed clinic staff of this issue. Pt started cussing et hung up phone. O AND CONTAINER INSPECTOR documented in this encounter Plan of Treatment Not on file documented as of this encounter Goals Goal Patient Goal Type Associated Problems Recent Progress Patient-Stated? Author Blood Pressure < 140/90 Blood Pressure 134/86(2022 2:25 PM CDT) No Leonard Jasso APRN documented as of this encounter Visit Diagnoses Not on filedocumented in this encounter Care Teams Material Requisitioner Relationship Specialty Start Date End Date Coco Leos PA-C [address] [place] [address] PCP - General Physician Cigarette Carton Sealer 10/25/17 11/24/18 Denny Dey DO [address] [place] [address] Referring Physician Orthopedic Surgery 06/28/18 9 Lacey Perdue MD [address] [phone] Referring Physician Infectious Diseases 06/28/18 documented as of this encounter
--- OUTSIDE RECORDS SUMMARY | 2024-11-23 10:20 | XMS_ITS | Encounter Summary ---
Author Organization [employer] Address [address] [place] [address] Care Team Providers Care Stock Trader Name Role Phone Coco Leos PA-C Primary Care Provider [phone] Denny Dey DO Unavailable [phone] Lacey Perdue MD Unavailable [phone] Encounter Details Date Type Department Care Team (Latest Contact Info) Description 09/07/2018 5:10 AM CDT - 09/07/2018 9:14 AM CDT Hospital Encounter [facility] [address] [place] [address] Yanira Fung, SALES PLANNER [address] [place] [address] Substance abuse; Narcotic drug use; Cellulitis of [...] CDT) Creatinine 0.93 0.70 - 1.30 mg/dL [facility] [employer] [facility] Creatinine Based eGFR >60 [facility] [employer] [facility] Comment: GFR REFERENCE RANGE: >60 mL/min/1.73m2 -- An eGFR of > than, or = to 60, may indicate normal renal function or mildly decreased GFR. EGFR /Karla n >60 [facility] [employer] NetworkQUEST LAB Comment: -- An eGFR of > than, or = to 60, may indicate normal renal function or mildly decreased GFR. Blood specimen (specimen) 09/07/2018 9:08 AM CDT 09/07/2018 9:12 AM CDT us Yanira Fung SALES PLANNER LAB BLOOD ORDERABLES Final Res ult [facility] [employer] NetworkQUEST LAB [address] [place], [place] [phone] * (ABNORMAL) Urine Drug Screen (09/07/2018 9:00 AM CDT) Cannabinoids,UR NEG NEG [facility] [employer] [facility] Comment:(Cutoff is 50 ng/mL) Cocaine,UR NEG NEG [facility] [employer] [facility] Comment:(Cutoff is 150 ng/mL ) Opiates,UR POS(A) NEG [facility] [employer] [facility] Comment:(Cutoff is 100 ng/mL ) Amphetamines,UR NEG NEG [facility] CARTNational Transcript CenterGE SUNQUEST LAB Comment:(Cut off is 500 ng/m l) Phencyclidine,UR NEG NEG [facility] [employer] [facility] Comment:(Cutoff is 25 ng/mL) Tricyclics UR POS(A) NEG [facility] [employer] [facility] Comment:(Cut off is 300 ng/m L) Barbiturates,UR NEG NEG [facility] [employer] [facility] Comment:(Cutoff is 200 ng/mL ) Methadone Screen NEG NEG [facility] [employer] [facility] Comment:(Cutoff is 200 ng/mL ) Benzodiazepines,UR NEG NEG [facility] [employer] [facility] Comment:(Cutoff is 150 ng/mL ) Oxycodone Screen,UR POS(A) NEG [facility] [employer] [facility] Comment:(Cutoff is 100 ng/mL ) Propoxyphene,UR NEG NEG [facility] [employer] [facility] Comment:(Cut off is 300 ng/m L) Buprenorphine UR NEG NEG [facility] [employer] [facility] Comment:(Cutoff is 10 ng/mL) Methamphetamine NEG NEG [facility] [employer] [facility] Comment: (Cut off is 500 ng/ml) ---- URINE TOXICOLOGY RESULTS ARE UNCONFIRMED, QUALITATIVE RESULTS ??FOR MEDICAL PURPOSES ONLY. Urine specimen (specimen) 09/07/2018 9:00 AM CDT 09/07/2018 9:03 AM CDT us Yanira Fung SALES PLANNER URINE ORDERABLES Final Result [facility] MICAH [employer] [address] [place], [place] [phone] documented in this encounter Visit Diagnoses Diagnosis Substance abuse Other, mixed, or unspecified nondependent drug abuse, unspecified Narcotic drug use Cellulitis of right foot Cellulitis and abscess of foot, except toes Staphylococcal arthritis, right ankle and foot documented in this encounter Care Teams Stock Trader Relationship Specialty Start Date End Date Coco Leos PA-C [address] [place] [address] PCP - General Physician Private Branch Exchange Operator 10/25/17 11/24/18 Denny Dey DO [address] [place] [address] Referring Physician Orthopedic Surgery 06/28/18 9 Lacey Perdue MD [address] [phone] Referring Physician Infectious Diseases 06/28/18 documented as of this encounter
--- OUTSIDE RECORDS SUMMARY | 2024-11-23 10:20 | XMS_ITS | Encounter Summary ---
Author Organization [employer] Address [address] [place] [address] Care Team Providers Care Physician Office Assistant Name Role Phone Coco Leos PA-C Primary Care Provider [phone] Denny Dey DO Unavailable [phone] Lacey Perdue MD Unavailable [phone] Encounter Details Date Type Department Care Team (Latest Contact Info) Description 09/23/2018 11:00 AM SUPERVISOR PUBLIC HEALTH NURSING - 09/23/2018 11:59 PM SUPERVISOR PUBLIC HEALTH NURSING Hospital Encounter [facility] [address] [place] [phone] Encounter for long-term (current) use of antibiotics; [...] Assessment Author No 10/25/2017 2:00 PM SUPERVISOR PUBLIC HEALTH NURSING Galvan, Am y S, BOAT HOIST OPERATOR HELPER * Do you have serious difficulty [...] VANCOMYCIN, TROUGH Routine 09/23/2018 11 :00 AM SUPERVISOR PUBLIC HEALTH NURSING Encounter for long-term (current) use of antibiotics Primary localized osteoarthrosis BASIC METABOLIC PANEL Routine 09/23/2018 11:00 AM SUPERVISOR PUBLIC HEALTH NURSING Encounter for long-term (current) use of antibiotics Primary localized osteoarthrosis documented in this encounter Results * (ABNORMAL) Vancomycin, trough (09/23/2018 11:00 AM SUPERVISOR PUBLIC HEALTH NURSING) Vancomycin Trough 25.8(H) 5.0 - 10.0 mcg/mL [facility] Mem[facility]azeQUEST LAB Blood specimen (specimen) 09/23/2018 11:00 AM SUPERVISOR PUBLIC HEALTH NURSING 09/23/2018 12:18 PM SUPERVISOR PUBLIC HEALTH NURSING us Lacey Perdue MD LAB BLOOD ORDERABLES Final R esult [facility]QUEST [facility] [address] [place] [address] * (ABNORMAL) Basic metabolic panel (09/23/2018 11:00 AM SUPERVISOR PUBLIC HEALTH NURSING) Sodium 138 136 - 145 mmol/L [facility] Sequence [facility] Potassium 3.9 3.5 - 5.1 mmol/L [facility] [employer] [facility] Chloride 101 98 - 107 mmol/L [facility] CARTFastacashGE [facility] CO2 34(H) 21 - 32 mmol/L [facility] Sequence [facility] Glucose 136(H) 74 - 106 mg/dL [facility] [employer] [facility] BUN 12 7.0 - 18.0 mg/dL [facility] Daily Deals for Moms[employer] [facility] Creatinine 0.89 0.70 - 1.30 mg/dL [facility]azeQUEST LAB Calcium 8.8 8.5 - 10.1 mg/dL [facility] Sequence [facility] Creatinine Based eGFR >60 [facility] [employer] [facility] Comment: GFR REFERENCE RANGE: >60 mL/min/1.73m2 -- An eGFR of > than, or = to 60, may indicate normal renal function or mildly decreased GFR. EGFR /Karla n >60 [facility] Mem[facility]azeQUEST LAB Comment: -- An eGFR of > than, or = to 60, may indicate normal renal function or mildly decreased GFR. Blood specimen (specimen) 09/23/2018 11:00 AM SUPERVISOR PUBLIC HEALTH NURSING 09/23/2018 12:18 PM SUPERVISOR PUBLIC HEALTH NURSING Lacey Perdue MD LAB BLOOD ORDERABLES Final R esult [facility] [employer] [facility] [address] [facility] [place], [place] [phone] documented in this encounter Visit Diagnoses Diagnosis Encounter for long-term (current) use of antibiotics Primary localized osteoarthrosis Primary localized osteoarthrosis, unspecified site documented in this encounter Care Teams Physician Office Assistant Relationship Specialty Start Date End Date Coco Leos PA-C [address] [place] [address] PCP - General Physician Property Supervisor 10/25/17 11/24/18 Denny Dey DO [address] [place] [address] Referring Physician Orthopedic Surgery 06/28/18 9 Lacey Perdue MD [address] [place] [phone] Referring Physician Infectious Diseases 06/28/18 documented as of this encounter
--- OUTSIDE RECORDS SUMMARY | 2024-11-23 10:20 | XMS_ITS | Encounter Summary ---
Author Organization [employer] Address [address] [place] [address] Care Team Providers Care Shadowgraph Scale Operator Name Role Phone Coco Leos PA-C Primary Care Provider [phone] Denny Dey DO Unavailable [phone] Lacey Perdue MD Unavailable [phone] Reason for Visit * Reason Comments Surgical Clearance R ankle Encounter Details Date Type Department Care Team (Late st Contact Info) Description 09/12/2018 3:00 PM CDT Office Visit [address] [place] [address] Maria Antonia Mckeon NP [address] [facility] [place] [address] Cellulitis of right ankle (Primary [...] Assessment Author No 10/25/2017 2:00 PM SYSTEMS TECHNICIAN Deonna Galvan y S, HOOKER UP * Are you blind or do you have serious difficulty seeing, even when wearing glasses? Answer Date of Assessment Author No 10/25/2017 2:00 PM SYSTEMS TECHNICIAN Cole Am y S, HOOKER UP * Do you have serious difficulty walking or climbing stairs? (5 years old or older) Answer Date of Assessment Author No 10/25/2017 2:00 PM SYSTEMS TECHNICIAN Deonna Galvan y S, HOOKER UP * Do you have difficulty dressing or bathing? (5 years old or older) Answer Date of Assessment Author No 10/25/2017 2:00 PM SYSTEMS TECHNICIAN Cole Am y S, HOOKER UP * Because of a physical, mental, or emotional condition, do you have difficulty doing errands alone such as visiting a doctor's office or shopping? (15 years old or older) Answer Date of Assessment Author No 10/25/2017 2:00 PM SYSTEMS TECHNICIAN Cole Am y S, HOOKER UP documented as of this encounter Mental Status * Because of a physical, mental, or emotional condition, do you have serious difficulty concentrating, remembering, or making decisions? (5 years old or older) Answer Entry Date Author No 10/25/2017 2:00 PM SYSTEMS TECHNICIAN Cole Am y S, HOOKER UP documented in this encounter Progress Notes * Maria Antonia Mckeon NP - 09/12/2018 3:00 PM CDT Images from the original note were not included. [address] [facility] [address] Dept: [phone] Dept Loc: [phone] Loc Date: 09/12/2018 Name: Edilberto Hawley : [...] examination documented in this encounter Care Teams Shadowgraph Scale Operator Relationship Specialty Start Date End Date Coco Leos PA-C [address] [place] [address] PCP - General Physician Promotions Firm Accounts Manager 10/25/17 11/24/18 Denny Dey DO [address] [place] [address] Referring Physician Orthopedic Surgery 06/28/18 9 Lacey Perdue MD [address] [phone] Referring Physician Infectious Diseases 06/28/18 documented as of this encounter
--- OUTSIDE RECORDS SUMMARY | 2024-11-23 10:20 | XMS_ITS | Encounter Summary ---
Author Organization [facility] Address [address] [place] [address] Care Team Providers Care Poultry Field Service Technician Name Role Phone Coco Leos PA-C Primary Care Provider [phone] Denny Dey DO Unavailable [phone] Lacey Perdue MD Unavailable [phone] Encounter Details Date Type Department Care Team (Latest Contact Info) Description 10/07/2018 9:00 AM HELICOPTER OFFICER - 10/07/2018 11:59 PM HELICOPTER OFFICER Hospital Encounter [facility] [address] [place] [phone] Encounter for long-term (current) use of antibiotics; [...] of Assessment Author No 10/25/2017 2:00 PM HELICOPTER OFFICER Galvan, Am y S, PROGRAMMING COORDINATOR * Do you have serious difficulty [...] VANCOMYCIN, TROUGH Routine 10/07/2018 9: 00 AM HELICOPTER OFFICER Encounter for long-term (current) use of antibiotics Primary localized osteoarthrosis BASIC METABOLIC PANEL Routine 10/07/2018 9:00 AM HELICOPTER OFFICER Encounter for long-term (current) use of antibiotics Primary localized osteoarthrosis documented in this encounter Results * (ABNORMAL) Basic metabolic panel (10/07/2018 9:00 AM HELICOPTER OFFICER) Sodium 138 136 - 145 mmol/L [facility] Potassium 4.2 3.5 - 5.1 mmol/L [facility] Chloride 104 98 - 107 mmol/L [facility] CO2 27 21 - 32 mmol/L [facility] Glucose 108(H) 74 - 106 mg/dL [facility] BUN 14 7.0 - 18.0 mg/dL [facility] Creatinine 0.98 0.70 - 1.30 mg/dL [facility] Calcium 8.9 8.5 - 10.1 mg/dL [facility] Creatinine Based eGFR >60 [facility] Comment: GFR REFERENCE RANGE: >60 mL/min/1.73m2 -- An eGFR of > than, or = to 60, may indicate normal renal function or mildly decreased GFR. EGFR /Karla n >60 [facility] Comment: -- An eGFR of > than, or = to 60, may indicate normal renal function or mildly decreased GFR. Blood specimen (specimen) 10/07/2018 9:00 AM HELICOPTER OFFICER 10/07/2018 9:51 AM HELICOPTER OFFICER us Lacey Perdue MD LAB BLOOD ORDERABLES Final R esult [facility] [address] [place], [place] [phone] * (ABNORMAL) Vancomycin, trough (10/07/2018 9:00 AM HELICOPTER OFFICER) Vancomycin Trough 19.9(H) 5.0 - 10.0 mcg/mL [facility] Blood specimen (specimen) 10/07/2018 9:00 AM HELICOPTER OFFICER 10/07/2018 9:51 AM HELICOPTER OFFICER us Lacey Perdue MD LAB BLOOD ORDERABLES Final R esult Performing Organization Address City/[facility]/ZIP Co de Phone Number [facility] [address] [place], [place] [phone] documented in this encounter Visit Diagnoses Diagnosis Encounter for long-term (current) use of antibiotics Primary localized osteoarthrosis Primary localized osteoarthrosis, unspecified site documented in this encounter Care Teams Poultry Field Service Technician Relationship Specialty Start Date End Date Coco Loes PA-C [address] [place] [phone] PCP - General Physician Granulator Operator 10/25/17 11/24/18 Denny Dey DO [address] [place] [address] Referring Physician Orthopedic Surgery 06/28/18 9 Lacey Perdue MD [address] [place] [phone] Referring Physician Infectious Diseases 06/28/18 documented as of this encounter
--- OUTSIDE RECORDS SUMMARY | 2024-11-23 10:20 | XMS_ITS | Encounter Summary ---
Author Organization [facility] Address [address] [place] [address] Care Team Providers Care Brokerage Purchase And Sale Clerk Name Role Phone RobertbetoGraceCoco Katt WISE Primary Care Provider [phone] Denny Dey DO Unavailable [phone] Lacey Perdue MD Unavailable [phone] Encounter Details Date Type Department Care Team (Latest Contact Info) Description 10/15/2018 Transcribe Orders [facility] [address] [place] [address] Lacey Perdue MD [address] [phone] Encounter for long-term (current) use [...] of Assessment Author No 10/25/2017 2:00 PM DISTRICT CUSTOMS DIRECTOR Deonna Galvan, GEORGE * Are you blind [...] * (ABNORMAL) Vancomycin, trough (10/15/2018 7:00 AM DISTRICT CUSTOMS DIRECTOR) Pathologist [facility] Vancomycin Trough 20.4(H) 5.0 - 10.0 mcg/mL [facility] Blood specimen (specimen) 10/15/2018 7:00 AM DISTRICT CUSTOMS DIRECTOR 10/15/2018 7:57 AM DISTRICT CUSTOMS DIRECTOR us Lacey Perdue MD LAB BLOOD ORDERABLES Final R esult [facility] [address] [place], [place] * (ABNORMAL) Basic metabolic panel (10/15/2018 7:00 AM DISTRICT CUSTOMS DIRECTOR) Sodium 142 136 - 145 mmol/L [facility] Potassium 3.9 3.5 - 5.1 mmol/L [facility] Chloride 102 98 - 107 mmol/L [facility] CO2 29 21 - 32 mmol/L [facility] [facility] Glucose 121(H) 74 - 106 mg/dL [facility] BUN 12 7.0 - 18.0 mg/dL [facility] Creatinine 0.95 0.70 - 1.30 mg/dL [facility] Calcium 9.7 8.5 - 10.1 mg/dL [facility] [employer] [facility] Creatinine Based eGFR >60 [facility] [employer] Comment: GFR REFERENCE RANGE: >60 mL/min/1.73m2 -- An eGFR of > than, or = to 60, may indicate normal renal function or mildly decreased GFR. EGFR /Karla n >60 [facility] [employer] Comment: -- An eGFR of > than, or = to 60, may indicate normal renal function or mildly decreased GFR. Blood specimen (specimen) 10/15/2018 7:00 AM DISTRICT CUSTOMS DIRECTOR 10/15/2018 7:57 AM DISTRICT CUSTOMS DIRECTOR us Lacey Perdue MD LAB BLOOD ORDERABLES Final R esult [facility] [employer] [address] [place], [place] documented in this encounter Visit Diagnoses Diagnosis Encounter for long-term (current) use of antibiotics- Primary Primary localized osteoarthrosis Primary localized osteoarthrosis, unspecified site documented in this encounter Care Teams Brokerage Purchase And Sale Clerk Relationship Specialty Start Date End Date Coco Leos PA-C [address] [place] [phone] PCP - General Physician Customer Consulting Manager 10/25/17 11/24/18 Denny Dey DO [address] [place] [address] Referring Physician Orthopedic Surgery 06/28/18 9 Lacey Perdue MD [address] [phone] Referring Physician Infectious Diseases 06/28/18 documented as of this encounter
--- OUTSIDE RECORDS SUMMARY | 2024-11-23 10:20 | XMS_ITS | Encounter Summary ---
Author Organization [employer] Address [address] [place] [address] Care Team Providers Care Director Trade Name Role Phone RobertbetoGraceCoco Katt WISE Primary Care Provider [phone] Denny Dey DO Unavailable [phone] Lacey Perdue MD Unavailable [phone] Encounter Details Date Type Department Care Team (Latest Contact Info) Description 10/17/2018 Transcribe Orders [facility] [address] [place] [address] Lacey Perdue MD [address] [phone] Encounter for long-term (current) use [...] of Assessment Author No 10/25/2017 2:00 PM DIALS SUPERVISOR Deonna Galvan, GEORGE * Are you blind or do you have serious difficulty seeing, even when wearing glasses? Answer Date of Assessment Author No 10/25/2017 2:00 PM Deonna Padilla ARNP * Do you have serious difficulty walking or climbing stairs? (5 years old or older) Answer Date of Assessment Author No 10/25/2017 2:00 PM Deonna Padilla, GASOLINE TESTER * Do you have difficulty dressing [...] * (ABNORMAL) Vancomycin, trough (10/17/2018 12:00 PM DIALS SUPERVISOR) Vancomycin Trough 12.0(H) 5.0 - 10.0 mcg/mL [facility] Blood specimen (specimen) 10/17/2018 12:00 PM DIALS SUPERVISOR 10/17/2018 1:32 PM DIALS SUPERVISOR us Lacey Perdue MD LAB BLOOD ORDERABLES Final R esult [facility] [address] [place] * (ABNORMAL) Sedimentation rate (10/17/2018 12:00 PM DIALS SUPERVISOR) Sedimentation Rate 31(H) 0 - 20 mm/hr [facility] [facility] Blood specimen (specimen) 10/17/2018 12:00 PM DIALS SUPERVISOR 10/17/2018 1:32 PM DIALS SUPERVISOR us Lacey Perdue MD LAB BLOOD ORDERABLES Final R esult [facility] [employer] [address] [place] * (ABNORMAL) C-reactive protein (10/17/2018 12:00 PM DIALS SUPERVISOR) CRP <0.20(L) 0.2 - 0.9 mg/dL [facility] [employer] [facility] Blood specimen (specimen) 10/17/2018 12:00 PM DIALS SUPERVISOR 10/17/2018 1:32 PM DIALS SUPERVISOR us Lacey Perdue MD LAB BLOOD ORDERABLES Final R esult [facility] [facility] [address] [place] * (ABNORMAL) Comprehensive metabolic panel (10/17/2018 12:00 PM DIALS SUPERVISOR) Sodium 142 136 - 145 mmol/L [facility] Potassium 3.8 3.5 - 5.1 mmol/L [facility] [employer] Chloride 104 98 - 107 mmol/L [facility] [employer] [facility] CO2 26 21 - 32 mmol/L [facility] [employer] [facility] Glucose 125(H) 74 - 106 mg/dL [facility] [employer] BUN 11 7.0 - 18.0 mg/dL [facility] Creatinine 1.01 0.70 - 1.30 mg/dL [facility] [employer] Calcium 9.0 8.5 - 10.1 mg/dL [facility] [employer] [facility] Total Protein 7.1 6.4 - 8.2 g/dL [facility] Albumin 3.8 3.4 - 5.0 g/dL [facility] Bilirubin Total 0.5 0.2 - 1.0 mg/dL [facility] Alkaline Phosphatase 94 56 - 119 U/L [facility] AST 60(H) 15 - 37 U/L [facility] ALT 75 12 - 78 U/L [facility] Creatinine Based eGFR >60 [facility] Comment: GFR REFERENCE RANGE: >60 mL/min/1.73m2 -- An eGFR of > than, or = to 60, may indicate normal renal function or mildly decreased GFR. EGFR /[place] >60 [facility] Comment: -- An eGFR of > than, or = to 60, may indicate normal renal function or mildly decreased GFR. Blood specimen (specimen) 10/17/2018 12:00 PM DIALS SUPERVISOR 10/17/2018 1:32 PM DIALS SUPERVISOR us Lacey Perdue MD LAB BLOOD ORDERABLES Final R esult [facility] [employer] [address] [place], [place] * CBC and differential (10/17/2018 12:00 PM DIALS SUPERVISOR) WBC 6.38 4.00 - 11.00 th/mm3 [facility] RBC 5.17 4.50 - 6.50 mill/mm3 [facility] HGB 15.2 13.8 - 18.0 g/dL [facility] HCT 45.3 40.0 - 54.0 % [facility] MCV 87.6 76 - [address] [facility] MCH 29.4 27.0 - 32.[address] [facility] MCHC 33.6 30.0 - 35.0 g/dL [facility] Platelets 175 135 - 470 th/mm3 [facility] RDW 13.2 11.0 - 17.0 % [facility] MPV 10.4 8.0 - 12.[address] [facility] Differential Type AUTOMATED DIFFERENTIAL [facility] Neutrophil % 58.0 45.0 - 75.0 % [facility] Lymphocytes % 27.4 20.0 - 45.0 % [facility] Monocyte % 10.0 0.0 - 10.0 % [facility] Eosinophils Relative % 4.1 0.0 - 5.0 % [facility] Basophils % 0.3 0.0 - 2.0 % [facility] Immature Granulocytes% 0.2 0.0 - 1.6 % [facility] Neutrophils Absolute 3.70 2.00 - 7.900 th/mm3 [facility] Lymphocytes Absolute 1.75 1.00 - 4.00 th/mm3 [facility] Monos Absolute 0.64 0.0 - 0.80 th/mm3 [facility] Eosinophils Absolute Count 0.26 0.00 - 0.40 th/mm3 [facility] Basophils Absolute 0.02 0.00 - 0.10 th/mm3 [facility] Immature Granulocytes Absolute 0.01 0.0 - 0.20 th/mm3 [facility] Blood specimen (specimen) BLOOD SPECIMEN / Unknown 10/17/2018 12:00 PM DIALS SUPERVISOR 10/17/2018 1:32 PM DIALS SUPERVISOR us Lacey Perdue MD LAB BLOOD ORDERABLES Edited Result - Final [facility] [address] [place], [place] documented in this encounter Visit Diagnoses Diagnosis Encounter for long-term (current) use of antibiotics- Primary Primary localized osteoarthrosis Primary localized osteoarthrosis, unspecified site documented in this encounter Care Teams Director Trade Relationship Specialty Start Date End Date Coco Leos PA-C [address] [place] [phone] PCP - General Physician Software Project Engineer 10/25/17 11/24/18 Denny Dey DO [address] [place] [address] Referring Physician Orthopedic Surgery 06/28/18 9 Lacey Perdue MD [address] [phone] Referring Physician Infectious Diseases 06/28/18 documented as of this encounter
--- OUTSIDE RECORDS SUMMARY | 2024-11-23 10:20 | XMS_ITS | Encounter Summary ---
Author Organization [employer] Address [address] [place] [address] Care Team Providers Care Insurance Associate Name Role Phone RobertbetoGraceCoco Katt WISE Primary Care Provider [phone] Denny Dey DO Unavailable [phone] Lacey Perdue MD Unavailable Encounter Details Date Type Department Care Team (Latest Contact Info) Description 09/30/2018 Transcribe Orders [facility] [address] [place] [address] Lacey Perdue MD [address] [phone] Encounter for long-term (current) use [...] Assessment Author No 10/25/2017 2:00 PM MANAGER E LEARNING Deonna Galvan, GEORGE * Are you blind [...] Results * Vancomycin, trough (09/30/2018 10:30 AM MANAGER E LEARNING) [facility] Vancomycin Trough 9.0 5.0 - 10.0 mcg/mL [facility] Blood specimen (specimen) 09/30/2018 10:30 AM MANAGER E LEARNING 09/30/2018 11:35 AM MANAGER E LEARNING us Lacey Perdue MD LAB BLOOD ORDERABLES Final R esult [facility] [address] [place], [place] [phone] * (ABNORMAL) Basic metabolic panel (09/30/2018 10:30 AM MANAGER E LEARNING) Sodium 140 136 - 145 mmol/L [facility] Potassium 4.1 3.5 - 5.1 mmol/L [facility] Chloride 103 98 - 107 mmol/L [facility] CO2 27 21 - 32 mmol/L [facility] [facility] Glucose 128(H) 74 - 106 mg/dL [facility] BUN 10 7.0 - 18.0 mg/dL [facility] Creatinine 1.04 0.70 - 1.30 mg/dL [facility] Calcium 9.0 8.5 - 10.1 mg/dL [facility] Creatinine Based eGFR >60 [facility] Comment: GFR REFERENCE RANGE: >60 mL/min/1.73m2 -- An eGFR of > than, or = to 60, may indicate normal renal function or mildly decreased GFR. EGFR /Karla n >60 [facility] Comment: -- An eGFR of > than, or = to 60, may indicate normal renal function or mildly decreased GFR. Blood specimen (specimen) 09/30/2018 10:30 AM MANAGER E LEARNING 09/30/2018 11:35 AM MANAGER E LEARNING us Lacey Perdue MD LAB BLOOD ORDERABLES Final R esult [facility] [address] [place] [address] documented in this encounter Visit Diagnoses Diagnosis Encounter for long-term (current) use of antibiotics- Primary Primary localized osteoarthrosis Primary localized osteoarthrosis, unspecified site documented in this encounter Care Teams Insurance Associate Relationship Specialty Start Date End Date Coco Leos PA-C [address] [place] [phone] PCP - General Physician Dairy Equipment Specialist 10/25/17 11/24/18 Denny Dey DO [address] [place] [address] Referring Physician Orthopedic Surgery 06/28/18 9 Lacey Perdue MD [address] [phone] Referring Physician Infectious Diseases 06/28/18 documented as of this encounter
--- OUTSIDE RECORDS SUMMARY | 2024-11-23 10:20 | XMS_ITS | Encounter Summary ---
Author Organization [employer] Address [address] [place] [address] Care Team Providers Care Feather Duster Winder Name Role Phone Coco Leos PA-C Primary Care Provider [phone] Denny Dey DO Unavailable [phone] Lacey Perdue MD Unavailable [phone] Encounter Details Date Type Department Care Team (Latest Contact Info) Description 10/24/2018 12:45 PM MANAGER TALENT ACQUISITION - 10/24/2018 11:59 PM MANAGER TALENT ACQUISITION Hospital Encounter [facility] [address] [place] [id number] Encounter for long-term (current) use of antibiotics; [...] Assessment Author No 10/25/2017 2:00 PM MANAGER TALENT ACQUISITION Galvan, Am y S, SOFTWARE DEVELOPMENT INTERN * Do you have serious difficulty [...] SEDIMENTATION RATE Routine 10/24/2018 12 :15 PM MANAGER TALENT ACQUISITION Encounter for long-term (current) use of antibiotics Primary localized osteoarthrosis CBC AND DIFFERENTIAL Routine 10/24/2018 12:15 PM MANAGER TALENT ACQUISITION Encounter for long-term (current) use of antibiotics Primary localized osteoarthrosis C-REACTIVE PROTEIN Routine 10/24/2018 12 :15 PM MANAGER TALENT ACQUISITION Encounter for long-term (current) use of antibiotics Primary localized osteoarthrosis VANCOMYCIN, TROUGH Routine 10/24/2018 12 :15 PM MANAGER TALENT ACQUISITION Encounter for long-term (current) use of antibiotics Primary localized osteoarthrosis COMPREHENSIVE METABOLIC PANEL Routine 10/24/2018 12:15 PM MANAGER TALENT ACQUISITION Encounter for long-term (current) use of antibiotics Primary localized osteoarthrosis documented in this encounter Results * Vancomycin, trough (10/24/2018 12:15 PM MANAGER TALENT ACQUISITION) Vancomycin Trough 5.3 5.0 - 10.0 mcg/mL 10/24/2018 3:23 PM MANAGER TALENT ACQUISITION [email or web address] Serum specimen (specimen) 10/24/2018 12:15 PM MANAGER TALENT ACQUISITION 10/24/2018 1:47 PM MANAGER TALENT ACQUISITION us Lacey Perdue MD LAB BLOOD ORDERABLES Final R esult [email or web address] [address] [place], [place] * (ABNORMAL) Sedimentation rate (10/24/2018 12:15 PM MANAGER TALENT ACQUISITION) Sedimentation Rate 32(H) 0 - 20 mm/hr 10/24/2018 6:06 PM [facility] Whole blood specimen (specimen) 10/24/2018 12:15 PM MANAGER TALENT ACQUISITION 10/24/2018 1:47 PM MANAGER TALENT ACQUISITION us Lacey Perdue MD LAB BLOOD ORDERABLES Final R esult [facility] [employer] [facility] [address] [place] * (ABNORMAL) CBC and differential (10/24/2018 12:15 PM MANAGER TALENT ACQUISITION) WBC 6.80 4.00 - 11.00 th/mm3 10/24/2018 2:39 PM [facility] [employer] [facility] RBC 5.27 4.50 - 6.50 mill/mm3 10/24/2018 2:39 PM [facility] [employer] [facility] HGB 15.3 13.8 - 18.0 g/dL 10/24/2018 2:39 PM [facility] [employer] [facility] HCT 46.2 40.0 - 54.0 % 10/24/2018 2:39 PM [facility] [employer] [facility] MCV 87.7 76 - 99 fL 10/24/2018 2:39 PM [facility] [employer] [facility] MCH 29.0 27.0 - 32.0 pg 10/24/2018 2:39 PM [facility] [employer] [facility] MCHC 33.1 30.0 - 35.0 g/dL 10/24/2018 2:39 PM [facility] Platelets 192 135 - 470 th/mm3 10/24/2018 2:39 PM [facility] [employer] [facility] RDW 12.7 11.0 - 17.0 % 10/24/2018 2:39 PM [facility] [employer] [facility] MPV 9.9 8.0 - 12.5 fL 10/24/2018 2:39 PM [facility] Differential Type AUTOMATED DIFFERENTIAL 10/24/2018 2:39 PM [facility] [employer] [facility] Neutrophil % 52.7 45.0 - 75.0 % 10/24/2018 2:39 PM [facility] Lymphocytes % 29.6 20.0 - 45.0 % 10/24/2018 2:39 PM [facility] Monocyte % 11.9(H) 0.0 - 10.0 % 10/24/2018 2:39 PM [facility] Eosinophils Relative % 5.1(H) 0.0 - 5.0 % 10/24/2018 2:39 PM [facility] Basophils % 0.6 0.0 - 2.0 % 10/24/2018 2:39 PM [facility] [employer] [facility] Immature Granulocytes% 0.1 0.0 - 1.6 % 10/24/2018 2:39 PM [facility] Neutrophils Absolute 3.58 2.00 - 7.90 th/mm3 10/24/2018 2:39 PM [facility] Lymphocytes Absolute 2.01 1.00 - 4.00 th/mm3 10/24/2018 2:39 PM [facility] [employer] [facility] Monos Absolute 0.81(H) 0.00 - 0.80 th/mm3 10/24/2018 2:39 PM [facility] Eosinophils Absolute Count 0.35 0.00 - 0.40 th/mm3 10/24/2018 2:39 PM [facility] [employer] [facility] Basophils Absolute 0.04 0.00 - 0.10 th/mm3 10/24/2018 2:39 PM [facility] [employer] [facility] Immature Granulocytes Absolute 0.01 0.0 - 0.20 th/mm3 10/24/2018 2:39 PM [facility] Serum specimen (specimen) BLOOD SPECIMEN / Unknown 10/24/2018 12:15 PM MANAGER TALENT ACQUISITION 10/24/2018 1:47 PM MANAGER TALENT ACQUISITION us Lacey Perdue MD LAB BLOOD ORDERABLES Final R esult [facility] [address] [place] * (ABNORMAL) Comprehensive metabolic panel (10/24/2018 12:15 PM [facility]) Sodium 139 136 - 145 mmol/L 10/24/2018 3:23 PM [facility] Potassium 4.1 3.5 - 5.1 mmol/L 10/24/2018 3:23 PM [facility] Chloride 100 98 - 107 mmol/L 10/24/2018 3:23 PM [facility] CO2 28 21 - 32 mmol/L 10/24/2018 3:23 PM [facility] Glucose 109(H) 74 - 106 mg/dL 10/24/2018 3:23 PM [facility] BUN 10 7.0 - 18.0 mg/dL 10/24/2018 3:23 PM [facility] Creatinine 0.98 0.70 - 1.30 mg/dL 10/24/2018 3:23 PM [facility] Calcium 9.6 8.5 - 10.1 mg/dL 10/24/2018 3:23 PM [facility] Total Protein 7.3 6.4 - 8.2 g/dL 10/24/2018 3:23 PM [facility] Albumin 4.2 3.4 - 5.0 g/dL 10/24/2018 3:23 PM [facility] Bilirubin Total 0.5 0.2 - 1.0 mg/dL 10/24/2018 3:23 PM [facility] Alkaline Phosphatase 99 56 - 119 U/L 10/24/2018 3:23 PM [facility] AST 39(H) 15 - 37 U/L 10/24/2018 3:23 PM [facility] ALT 60 12 - 78 U/L 10/24/2018 3:23 PM [facility] [employer] [facility] Creatinine Based eGFR >60 10/24/2018 3:23 PM MANAGER TALENT ACQUISITION [email or web address] Comment: GFR REFERENCE RANGE: >60 mL/min/1.73m2 -- An eGFR of > than, or = to 60, may indicate normal renal function or mildly decreased GFR. EGFR /Dutch >60 10/24/2018 3:23 PM MANAGER TALENT ACQUISITION [facility] [employer] Comment: -- An eGFR of > than, or = to 60, may indicate normal renal function or mildly decreased GFR. Serum specimen (specimen) 10/24/2018 12:15 PM MANAGER TALENT ACQUISITION 10/24/2018 1:47 PM MANAGER TALENT ACQUISITION us Lacey Perdue MD LAB BLOOD ORDERABLES Final R esult [email or web address] [address] [place] [address] * (ABNORMAL) C-reactive protein (10/24/2018 12:15 PM MANAGER TALENT ACQUISITION) CRP 2.20(H) 0.2 - 0.9 mg/dL 10/24/2018 3:23 PM MANAGER TALENT ACQUISITION [email or web address] Serum specimen (specimen) 10/24/2018 12:15 PM MANAGER TALENT ACQUISITION 10/24/2018 1:47 PM MANAGER TALENT ACQUISITION us Lacey Perdue MD LAB BLOOD ORDERABLES Final R esult [email or web address] [address] [place] [address] documented in this encounter Visit Diagnoses Diagnosis Encounter for long-term (current) use of antibiotics Primary localized osteoarthrosis Primary localized osteoarthrosis, unspecified site documented in this encounter Care Teams Feather Duster Winder Relationship Specialty Start Date End Date Coco Leos PA-C [address] [place] [address] PCP - General Physician Objective C Developer 10/25/17 11/24/18 Denny Dey DO [address] [place] [address] Referring Physician Orthopedic Surgery 06/28/18 9 Lacey Perdue MD [address] [phone] Referring Physician Infectious Diseases 06/28/18 documented as of this encounter
--- OUTSIDE RECORDS SUMMARY | 2024-11-23 10:20 | XMS_ITS | Encounter Summary ---
Author Organization [employer] Address [address] [place] [address] Care Team Providers Care Sales Product Specialist Name Role Phone Coco Leos PA-C Primary Care Provider [phone] Denny Dey DO Unavailable [phone] Lacey Perdue MD Unavailable Reason for Visit * Reason Onset Date Comments non-compliance with controlled substance agreeme nt 10/03/2018 Encounter Details Date Type Department Care Team (Late st Contact Info) Description 10/03/[address] [address] aYel Sim, LEIGHTON [address] [facility] [address] [place] [address] non-compliance with controlled substance agreement [...] of Assessment Author No 10/25/2017 2:00 PM QUICK SERVICE TECHNICIAN Deonna Galvan ARNP * Are you blind or do you have serious difficulty seeing, even when wearing glasses? Answer Date of Assessment Author No 10/25/2017 2:00 PM QUICK SERVICE TECHNICIAN Deonna Galvan, AGRICULTURAL EQUIPMENT TEST ENGINEER * Do you have serious difficulty walking or climbing stairs? (5 years old or older) Answer Date of Assessment Author No 10/25/2017 2:00 PM QUICK SERVICE TECHNICIAN Deonna Galvan, AGRICULTURAL EQUIPMENT TEST ENGINEER * Do you have difficulty dressing or bathing? (5 years old or older) Answer Date of Assessment Author No 10/25/2017 2:00 PM QUICK SERVICE TECHNICIAN Deonna Galvan, AGRICULTURAL EQUIPMENT TEST ENGINEER * Because of a physical, mental, or emotional condition, do you have difficulty doing errands alone such as visiting a doctor's office or shopping? (15 years old or older) Answer Date of Assessment Author No 10/25/2017 2:00 PM Deonna Padilla, AGRICULTURAL EQUIPMENT TEST ENGINEER documented as of this encounter Mental Status * Because of a physical, mental, or emotional condition, do you have serious difficulty concentrating, remembering, or making decisions? (5 years old or older) Answer Entry Date Author No 10/25/2017 2:00 PM Deonna Padilla, GEORGE documented in this encounter Miscellaneous Notes * Telephone Encounter - Yael Sim LEIGHTON Crockett - 10/03/2018 4:40 PM QUICK SERVICE TECHNICIAN Images from the original note were not included. Message Received: Today Message Contents Mandi Lucia [facility] Cc: TIFFANI Galeano Caller: Patient (Today, ??9:30 AM) ?? Provider: Romero RE: Refill Request Patient called requesting his refills. morphine (MS CONTIN) 30 MG extended release tablet oxyCODONE-acetaminophen (PERCOCET) 10-325 MG per tablet amitriptyline (ELAVIL) 75 MG tablet tamsulosin HCl (FLOMAX) 0.4 MG capsule Patient uses [facility]. Please call patient when scripts are [...] this nurse to contact Zenaida Alejandre, clinical commercial property manager, et notify of wish to fire patient. Called Zenaida Alejandre et notified via phone. Zenaida requested the pertinent information via email. Email sent. K SERVICE TECHNICIAN documented in this encounter Plan of Treatment Not on file documented as of this encounter Goals Goal Patient Goal Type Associated Problems Recent Progress Patient-Stated? Author Blood Pressure < 140/90 Blood Pressure 134/86(2022 2:25 PM CDT) No Leonard Jasso APRN documented as of this encounter Visit Diagnoses Not on filedocumented in this encounter Care Teams Sales Product Specialist Relationship Specialty Start Date End Date Coco Leos PA-C [address] [place] [address] PCP - General Physician Market Manager 10/25/17 11/24/18 Denny Dey DO [address] [place] [address] Referring Physician Orthopedic Surgery 06/28/18 9 Lacey Perdue MD [facility] [phone] Referring Physician Infectious Diseases 06/28/18 documented as of this encounter
--- OUTSIDE RECORDS SUMMARY | 2024-11-23 10:20 | XMS_ITS | Encounter Summary ---
Author Organization [employer] Address [address] [place] [address] Care Team Providers Care Director Of Perioperative Services Name Role Phone RobertbetoGraceCoco Katt WISE Primary Care Provider [phone] Denny Dey DO Unavailable [phone] Lacey Perdue MD Unavailable Encounter Details Date Type Department Care Team (Latest Contact Info) Description 10/24/2018 Transcribe Orders [facility] [address] [place] [address] Lacey Perdue MD [address] [phone] Encounter for long-term (current) use [...] of Assessment Author No 10/25/2017 2:00 PM COMPRESSED GAS EQUIPMENT MECHANIC Deonna Galvan, GEORGE * Are you [...] Results * Vancomycin, trough (10/24/2018 12:15 PM COMPRESSED GAS EQUIPMENT MECHANIC) Vancomycin Trough 5.3 5.0 - 10.0 mcg/mL 10/24/2018 3:23 PM COMPRESSED GAS EQUIPMENT MECHANIC [facility] [employer] [facility] Serum specimen (specimen) 10/24/2018 12:15 PM COMPRESSED GAS EQUIPMENT MECHANIC 10/24/2018 1:47 PM COMPRESSED GAS EQUIPMENT MECHANIC us Lacey Perdue MD LAB BLOOD ORDERABLES Final R esult [facility] [facility] [facility] [address] [place] * (ABNORMAL) Sedimentation rate (10/24/2018 12:15 PM COMPRESSED GAS EQUIPMENT MECHANIC) Sedimentation Rate 32(H) 0 - 20 mm/hr 10/24/2018 6:06 PM COMPRESSED GAS EQUIPMENT MECHANIC [facility] [employer] Whole blood specimen (specimen) 10/24/2018 12:15 PM COMPRESSED GAS EQUIPMENT MECHANIC 10/24/2018 1:47 PM COMPRESSED GAS EQUIPMENT MECHANIC us Lacey Perdue MD LAB BLOOD ORDERABLES Final R esult [facility] [employer] [facility] [address] [place] * (ABNORMAL) CBC and differential (10/24/2018 12:15 PM COMPRESSED GAS EQUIPMENT MECHANIC) WBC 6.80 4.00 - 11.00 th/mm3 10/24/2018 2:39 PM [facility] [employer] [facility] RBC 5.27 4.50 - 6.50 mill/mm3 10/24/2018 2:39 PM [facility] [employer] [facility] HGB 15.3 13.8 - 18.0 g/dL 10/24/2018 2:39 PM [facility] [employer] [facility] HCT 46.2 40.0 - 54.0 % 10/24/2018 2:39 PM [facility] [employer] [facility] MCV 87.7 76 - 99 fL 10/24/2018 2:39 PM [facility] [employer] [facility] MCH 29.0 27.0 - 32.0 pg 10/24/2018 2:39 PM [facility] [employer] [facility] MCHC 33.1 30.0 - 35.0 g/dL 10/24/2018 2:39 PM [facility] [employer] [facility] Platelets 192 135 - 470 th/mm3 10/24/2018 2:39 PM [facility] [employer] [facility] RDW 12.7 11.0 - 17.0 % 10/24/2018 2:39 PM [facility] [employer] [facility] MPV 9.9 8.0 - 12.5 fL 10/24/2018 2:39 PM [facility] [employer] Differential Type AUTOMATED DIFFERENTIAL 10/24/2018 2:39 PM [facility] Neutrophil % 52.7 45.0 - 75.0 % 10/24/2018 2:39 PM [facility] Lymphocytes % 29.6 20.0 - 45.0 % 10/24/2018 2:39 PM [facility] Monocyte % 11.9(H) 0.0 - 10.0 % 10/24/2018 2:39 PM [facility] Eosinophils Relative % 5.1(H) 0.0 - 5.0 % 10/24/2018 2:39 PM [facility] Basophils % 0.6 0.0 - 2.0 % 10/24/2018 2:39 PM [facility] Immature Granulocytes% 0.1 0.0 - 1.6 % 10/24/2018 2:39 PM [facility] Neutrophils Absolute 3.58 2.00 - 7.90 th/mm3 10/24/2018 2:39 PM [facility] Lymphocytes Absolute 2.01 1.00 - 4.00 th/mm3 10/24/2018 2:39 PM [facility] Monos Absolute 0.81(H) 0.00 - 0.80 th/mm3 10/24/2018 2:39 PM [facility] Eosinophils Absolute Count 0.35 0.00 - 0.40 th/mm3 10/24/2018 2:39 PM [facility] Basophils Absolute 0.04 0.00 - 0.10 th/mm3 10/24/2018 2:39 PM [facility] Immature Granulocytes Absolute 0.01 0.0 - 0.20 th/mm3 10/24/2018 2:39 PM [facility] Serum specimen (specimen) BLOOD SPECIMEN / Unknown 10/24/2018 12:15 PM COMPRESSED GAS EQUIPMENT MECHANIC 10/24/2018 1:47 PM [facility] Lacey Perdue MD LAB BLOOD ORDERABLES Final R esult [facility] [employer] [facility] [address] [place], [place] * (ABNORMAL) Comprehensive metabolic panel (10/24/2018 12:15 PM [facility]) Sodium 139 136 - 145 mmol/L 10/24/2018 3:23 PM [facility] Potassium 4.1 3.5 - 5.1 mmol/L 10/24/2018 3:23 PM [facility] Chloride 100 98 - 107 mmol/L 10/24/2018 3:23 PM [facility] CO2 28 21 - 32 mmol/L 10/24/2018 3:23 PM [facility] Glucose 109(H) 74 - 106 mg/dL 10/24/2018 3:23 PM [facility] BUN 10 7.0 - 18.0 mg/dL 10/24/2018 3:23 PM [facility] Creatinine 0.98 0.70 - 1.30 mg/dL 10/24/2018 3:23 PM [facility] Calcium 9.6 8.5 - 10.1 mg/dL 10/24/2018 3:23 PM [facility] Total Protein 7.3 6.4 - 8.2 g/dL 10/24/2018 3:23 PM [facility] Albumin 4.2 3.4 - 5.0 g/dL 10/24/2018 3:23 PM [facility] Bilirubin Total 0.5 0.2 - 1.0 mg/dL 10/24/2018 3:23 PM [facility] Alkaline Phosphatase 99 56 - 119 U/L 10/24/2018 3:23 PM [facility] AST 39(H) 15 - 37 U/L 10/24/2018 3:23 PM [facility] [employer] ALT 60 12 - 78 U/L 10/24/2018 3:23 PM COMPRESSED GAS EQUIPMENT MECHANIC [facility] Creatinine Based eGFR >60 10/24/2018 3:23 PM COMPRESSED GAS EQUIPMENT MECHANIC [facility] Comment: GFR REFERENCE RANGE: >60 mL/min/1.73m2 -- An eGFR of > than, or = to 60, may indicate normal renal function or mildly decreased GFR. EGFR /Mauritanian >60 10/24/2018 3:23 PM COMPRESSED GAS EQUIPMENT MECHANIC [facility] Comment: -- An eGFR of > than, or = to 60, may indicate normal renal function or mildly decreased GFR. Serum specimen (specimen) 10/24/2018 12:15 PM COMPRESSED GAS EQUIPMENT MECHANIC 10/24/2018 1:47 PM COMPRESSED GAS EQUIPMENT MECHANIC us Lacey Perdue MD LAB BLOOD ORDERABLES Final R esult Performing Organization Address City/[facility]/ZIP Co de Phone Number [facility] [address] [place], [place] * (ABNORMAL) C-reactive protein (10/24/2018 12:15 PM COMPRESSED GAS EQUIPMENT MECHANIC) CRP 2.20(H) 0.2 - 0.9 mg/dL 10/24/2018 3:23 PM COMPRESSED GAS EQUIPMENT MECHANIC [facility] Serum specimen (specimen) 10/24/2018 12:15 PM COMPRESSED GAS EQUIPMENT MECHANIC 10/24/2018 1:47 PM COMPRESSED GAS EQUIPMENT MECHANIC us Lacey Perdue MD LAB BLOOD ORDERABLES Final R esult [facility] [address] [place], [place] documented in this encounter Visit Diagnoses Diagnosis Encounter for long-term (current) use of antibiotics- Primary Primary localized osteoarthrosis Primary localized osteoarthrosis, unspecified site documented in this encounter Care Teams Director Of Perioperative Services Relationship Specialty Start Date End Date Coco Leos PA-C [address] [place] [phone] PCP - General Physician Android Ios Developer 10/25/17 11/24/18 Denny Dey DO [address] [place] [address] Referring Physician Orthopedic Surgery 06/28/18 9 Lacey Perdue MD [address] [phone] Referring Physician Infectious Diseases 06/28/18 documented as of this encounter
--- OUTSIDE RECORDS SUMMARY | 2024-11-23 10:20 | XMS_ITS | Encounter Summary ---
Author Organization [employer] Address [address] [place] [address] Care Team Providers Care Tenter Frame Back Tender Name Role Phone RobertbetoGraceCoco Katt WISE Primary Care Provider [phone] Denny Dey DO Unavailable [phone] Lacey Perdue MD Unavailable [phone] Encounter Details Date Type Department Care Team (Latest Contact Info) Description 10/07/2018 Transcribe Orders [facility] [address] [place] [address] Lacey Perdue MD [address] [phone] Encounter for long-term (current) use [...] of Assessment Author No 10/25/2017 2:00 PM RATE SUPERVISOR Deonna Galvan, GEORGE * Are you [...] (ABNORMAL) Basic metabolic panel (10/07/2018 9:00 AM RATE SUPERVISOR) Sodium 138 136 - 145 mmol/L [facility] [employer] [facility] Potassium 4.2 3.5 - 5.1 mmol/L [facility] Chloride 104 98 - 107 mmol/L [facility] CO2 27 21 - 32 mmol/L [facility] Glucose 108(H) 74 - 106 mg/dL [facility] BUN 14 7.0 - 18.0 mg/dL [facility] Creatinine 0.98 0.70 - 1.30 mg/dL [facility] [employer] [facility] Calcium 8.9 8.5 - 10.1 mg/dL [facility] [employer] [facility] Creatinine Based eGFR >60 [facility] Comment: GFR REFERENCE RANGE: >60 mL/min/1.73m2 -- An eGFR of > than, or = to 60, may indicate normal renal function or mildly decreased GFR. EGFR /Karla n >60 [facility] [employer] [facility] Comment: -- An eGFR of > than, or = to 60, may indicate normal renal function or mildly decreased GFR. Blood specimen (specimen) 10/07/2018 9:00 AM RATE SUPERVISOR 10/07/2018 9:51 AM RATE SUPERVISOR Lacey Perdue MD LAB BLOOD ORDERABLES Final R esult [facility] [address] [place] [address] * (ABNORMAL) Vancomycin, trough (10/07/2018 9:00 AM RATE SUPERVISOR) Vancomycin Trough 19.9(H) 5.0 - 10.0 mcg/mL [facility] Blood specimen (specimen) 10/07/2018 9:00 AM RATE SUPERVISOR 10/07/2018 9:51 AM RATE SUPERVISOR us Lacey Perdue MD LAB BLOOD ORDERABLES Final R esult [facility] [address] [place] [address] documented in this encounter Visit Diagnoses Diagnosis Encounter for long-term (current) use of antibiotics- Primary Primary localized osteoarthrosis Primary localized osteoarthrosis, unspecified site documented in this encounter Care Teams Tenter Frame Back Tender Relationship Specialty Start Date End Date Coco Leos PA-C [address] [place] [address] PCP - General Physician Trolley Car Operator 10/25/17 11/24/18 Denny Dey DO [address] [place] [address] Referring Physician Orthopedic Surgery 06/28/18 9 Lacey Perdue MD [address] [phone] Referring Physician Infectious Diseases 06/28/18 documented as of this encounter
--- OUTSIDE RECORDS SUMMARY | 2024-11-23 10:20 | XMS_ITS | Encounter Summary ---
Author Organization [employer] Address [address] [place] [address] Care Team Providers Care Engineering Consultant Name Role Phone Coco Leos PA-C Primary Care Provider [phone] Denny Dey DO Unavailable [phone] Lacey Perdue MD Unavailable [phone] Encounter Details Date Type Department Care Team (Latest Contact Info) Description 10/31/2018 11:40 AM LARRY OPERATOR - 10/31/2018 11:59 PM LARRY OPERATOR Hospital Encounter [facility] [address] [place] [phone] Encounter for long-term (current) use of antibiotics; [...] of Assessment Author No 10/25/2017 2:00 PM LARRY OPERATOR Galvan, Am y S, CROSS TIE CUTTER * Do you have serious difficulty [...] SEDIMENTATION RATE Routine 10/31/2018 11 :40 AM LARRY OPERATOR Encounter for long-term (current) use of antibiotics Primary localized osteoarthrosis CBC AND DIFFERENTIAL Routine 10/31/2018 11:40 AM LARRY OPERATOR Encounter for long-term (current) use of antibiotics Primary localized osteoarthrosis C-REACTIVE PROTEIN Routine 10/31/2018 11 :40 AM LARRY OPERATOR Encounter for long-term (current) use of antibiotics Primary localized osteoarthrosis VANCOMYCIN, TROUGH Routine 10/31/2018 11 :40 AM LARRY OPERATOR Encounter for long-term (current) use of antibiotics Primary localized osteoarthrosis COMPREHENSIVE METABOLIC PANEL Routine 10/31/2018 11:40 AM LARRY OPERATOR Encounter for long-term (current) use of antibiotics Primary localized osteoarthrosis documented in this encounter Results * C-reactive protein (10/31/2018 11:40 AM LARRY OPERATOR) CRP 0.60 0.2 - 0.9 mg/dL 10/31/2018 1:29 PM LARRY OPERATOR [facility] Serum specimen (specimen) 10/31/2018 11:40 AM LARRY OPERATOR 10/31/2018 12:49 PM LARRY OPERATOR us Lacey Perdue MD LAB BLOOD ORDERABLES Final R esult [facility] [address] [place], [place] * Vancomycin, trough (10/31/2018 11:40 AM LARRY OPERATOR) Vancomycin Trough 7.4 5.0 - 10.0 mcg/mL 10/31/2018 1:29 PM LARRY OPERATOR [facility] [employer] [facility] Serum specimen (specimen) 10/31/2018 11:40 AM LARRY OPERATOR 10/31/2018 12:49 PM LARRY OPERATOR us Lacey Perdue MD LAB BLOOD ORDERABLES Final R esult [facility] [employer] [facility] [address] [place] * (ABNORMAL) Sedimentation rate (10/31/2018 11:40 AM LARRY OPERATOR) Sedimentation Rate 35(H) 0 - 20 mm/hr 10/31/2018 1:41 PM LARRY OPERATOR [facility] Whole blood specimen (specimen) 10/31/2018 11:40 AM LARRY OPERATOR 10/31/2018 12:49 PM LARRY OPERATOR us Lacey Perdue MD LAB BLOOD ORDERABLES Final R esult [facility] [employer] [facility] [address] [place] * (ABNORMAL) Comprehensive metabolic panel (10/31/2018 11:40 AM LARRY OPERATOR) Sodium 139 136 - 145 mmol/L 10/31/2018 1:29 PM LARRY OPERATOR [facility] [employer] [facility] Potassium 4.0 3.5 - 5.1 mmol/L 10/31/2018 1:29 PM LARRY OPERATOR [facility] [employer] [facility] Chloride 103 98 - 107 mmol/L 10/31/2018 1:29 PM [facility] [employer] [facility] CO2 26 21 - 32 mmol/L 10/31/2018 1:29 PM [facility] [employer] [facility] Glucose 104 74 - 106 mg/dL 10/31/2018 1:29 PM [facility] [employer] [facility] BUN 17 7.0 - 18.0 mg/dL 10/31/2018 1:29 PM [facility] [employer] [facility] Creatinine 0.99 0.70 - 1.30 mg/dL 10/31/2018 1:29 PM [facility] [employer] [facility] Calcium 9.1 8.5 - 10.1 mg/dL 10/31/2018 1:29 PM [facility] [employer] [facility] Total Protein 7.1 6.4 - 8.2 g/dL 10/31/2018 1:29 PM [facility] [employer] [facility] Albumin 3.9 3.4 - 5.0 g/dL 10/31/2018 1:29 PM [facility] [employer] Bilirubin Total 0.5 0.2 - 1.0 mg/dL 10/31/2018 1:29 PM [facility] Alkaline Phosphatase 93 56 - 119 U/L 10/31/2018 1:29 PM [facility] AST 44(H) 15 - 37 U/L 10/31/2018 1:29 PM [facility] ALT 61 16 - 63 U/L 10/31/2018 1:29 PM [facility] [employer] [facility] Creatinine Based eGFR >60 10/31/2018 1:29 PM [facility] Comment: GFR REFERENCE RANGE: >60 mL/min/1.73m2 -- An eGFR of > than, or = to 60, may indicate normal renal function or mildly decreased GFR. EGFR /[place] >60 10/31/2018 1:29 PM [facility] [employer] [facility] Comment: -- An eGFR of > than, or = to 60, may indicate normal renal function or mildly decreased GFR. Serum specimen (specimen) 10/31/2018 11:40 AM LARRY OPERATOR 10/31/2018 12:49 PM LARRY OPERATOR us Lacey Perdue MD LAB BLOOD ORDERABLES Final R esult [facility] [employer] [facility] [address] [place], [place] * (ABNORMAL) CBC and differential (10/31/2018 11:40 AM LARRY OPERATOR) WBC 6.53 4.00 - 11.00 th/mm3 10/31/2018 1:09 PM [facility] RBC 5.09 4.50 - 6.50 mill/mm3 10/31/2018 1:09 PM [facility] HGB 15.0 13.8 - 18.0 g/dL 10/31/2018 1:09 PM [facility] HCT 44.7 40.0 - 54.0 % 10/31/2018 1:09 PM [facility] MCV 87.8 76 - 99 fL 10/31/2018 1:09 PM [facility] MCH 29.5 27.0 - 32.0 pg 10/31/2018 1:09 PM [facility] MCHC 33.6 30.0 - 35.0 g/dL 10/31/2018 1:09 PM [facility] Platelets 187 135 - 470 th/mm3 10/31/2018 1:09 PM [facility] RDW 12.5 11.0 - 17.0 % 10/31/2018 1:09 PM [facility] MPV 9.9 8.0 - 12.5 fL 10/31/2018 1:09 PM [facility] Differential Type AUTOMATED DIFFERENTIAL 10/31/2018 1:09 PM [facility] Neutrophil % 54.8 45.0 - 75.0 % 10/31/2018 1:09 PM [facility] Lymphocytes % 26.8 20.0 - 45.0 % 10/31/2018 1:09 PM [facility] Monocyte % 12.1(H) 0.0 - 10.0 % 10/31/2018 1:09 PM [facility] Eosinophils Relative % 5.7(H) 0.0 - 5.0 % 10/31/2018 1:09 PM [facility] Basophils % 0.3 0.0 - 2.0 % 10/31/2018 1:09 PM [facility] Immature Granulocytes% 0.3 0.0 - 1.6 % 10/31/2018 1:09 PM [facility] [employer] [facility] Neutrophils Absolute 3.58 2.00 - 7.90 th/mm3 10/31/2018 1:09 PM [facility] Lymphocytes Absolute 1.75 1.00 - 4.00 th/mm3 10/31/2018 1:09 PM LARRY OPERATOR [facility] Monos Absolute 0.79 0.00 - 0.80 th/mm3 10/31/2018 1:09 PM [facility] [employer] [facility] Eosinophils Absolute Count 0.37 0.00 - 0.40 th/mm3 10/31/2018 1:09 PM [facility] [employer] [employer] [facility] Basophils Absolute 0.02 0.00 - 0.10 th/mm3 10/31/2018 1:09 PM [facility] Immature Granulocytes Absolute 0.02 0.0 - 0.20 th/mm3 10/31/2018 1:09 PM [facility] Serum specimen (specimen) BLOOD SPECIMEN / Unknown 10/31/2018 11:40 AM LARRY OPERATOR 10/31/2018 12:49 PM [facility] us Lacey Perdue MD LAB BLOOD ORDERABLES Final R esult [facility] [employer] [facility] [address] [place], [place] documented in this encounter Visit Diagnoses Diagnosis Encounter for long-term (current) use of antibiotics Primary localized osteoarthrosis Primary localized osteoarthrosis, unspecified site documented in this encounter Care Teams Engineering Consultant Relationship Specialty Start Date End Date Coco Leos PA-C [address] [place] [address] PCP - General Physician Supervisor Felting 10/25/17 11/24/18 Denny Dey DO [address] [place] [address] Referring Physician Orthopedic Surgery 06/28/18 9 Lacey Perdue MD [address] [address] Referring Physician Infectious Diseases 06/28/18 documented as of this encounter
--- OUTSIDE RECORDS SUMMARY | 2024-11-23 10:21 | XMS_ITS | Encounter Summary ---
Author Organization [employer] Address [address] [place] [address] Care Team Providers Care Timber Poisoner Name Role Phone Coco Leos PA-C Primary Care Provider [phone] Denny Dey DO Unavailable [phone] Lacey Perdue MD Unavailable [phone] Reason for Visit * Reason Comments Medication Refill Encounter Details Date Type Department Care Team (Late st Contact Info) Description 08/09/[address] [phone] Leonard Jasso, LINEN CHECKER [address] [place], [place] [phone] Social History Tobacco Use Types Packs/Day Years [...] of Assessment Author No 10/25/2017 2:00 PM CHEMISTRY LECTURER Galvan, Am y S, CAREER DEVELOPMENT COORDINATOR/TEACHER * Do you have serious difficulty walking or climbing stairs? (5 years old or older) Answer Date of Assessment Author No 10/25/2017 2:00 PM JOHN Galvan Am y S, CAREER DEVELOPMENT COORDINATOR/TEACHER * Do you have difficulty dressing or bathing? (5 years old or older) Answer Date of Assessment Author No 10/25/2017 2:00 PM JOHN Galvan Am y S, CAREER DEVELOPMENT COORDINATOR/TEACHER * Because of a physical, mental, or emotional condition, do you have difficulty doing errands alone such as visiting a doctor's office or shopping? (15 years old or older) Answer Date of Assessment Author No 10/25/2017 2:00 PM JOHN Galvan Am y S, CAREER DEVELOPMENT COORDINATOR/TEACHER documented as of this encounter Mental Status * Because of a physical, mental, or emotional condition, do you have serious difficulty concentrating, remembering, or making decisions? (5 years old or older) Answer Entry Date Author No 10/25/2017 2:00 PM Deonna Padlila, CAREER DEVELOPMENT COORDINATOR/TEACHER documented in this encounter Plan of Treatment Not on file documented as of this encounter Goals Goal Patient Goal Type Associated Problems Recent Progress Patient-Stated? Author Blood Pressure < 140/90 Blood Pressure 134/86(2022 2:25 PM CDT) No Leonard Jasso APRN documented as of this encounter Visit Diagnoses Not on filedocumented in this encounter Care Teams Timber Poisoner Relationship Specialty Start Date End Date Coco Leos PA-C [address] [place] [address] PCP - General Physician Relief Master 10/25/17 11/24/18 eDnny Dey DO [address] [place] [address] Referring Physician Orthopedic Surgery 06/28/18 9 Lacey Perdue MD [address] [phone] Referring Physician Infectious Diseases 06/28/18 documented as of this encounter
--- OUTSIDE RECORDS SUMMARY | 2024-11-23 10:21 | XMS_ITS | Encounter Summary ---
Author Organization [employer] Address [address] [place] [address] Care Team Providers Care Transliterator Name Role Phone Patient, None Per Primary Care Provider Unavaila ble Encounter Details Date Type Department Care Team (Latest Contact Info) Description 08/12/2017 9:00 AM CDT - 08/12/2017 9:53 AM CDT Hospital Encounter [facility] [address] [place], [place] [phone] Verónica Dominguez, PT [address] [place], [place] [phone] Discharge Disposition: Home - Discharge to Home [...] Dominguez, PT - 08/12/2017 3:13 PM CDT [facility] Progress Note for Outpatient Physical Therapy [...] concerns. Verónica Dominguez, MAURICIO 08/12/2017 3:14 [place] [address] Ph. [phone] Fax. [phone] documented in this encounter Plan of Treatment Not on file documented as of this encounter Visit Diagnoses Not on filedocumented in this encounter Care Teams Transliterator Relationship Specialty Start Date End Date Patient, None Per PCP - General 08/04/17 10/24/17 documented as of this encounter
--- OUTSIDE RECORDS SUMMARY | 2024-11-23 10:21 | XMS_ITS | Encounter Summary ---
Author Organization [employer] Address [address] [place] [address] Care Team Providers Care Biomedical Manager Name Role Phone Kiley Todd MD Primary Care Provider [phone] Reason for Referral * Diagnostic Radiology (Routine) - Closed Specialty Diagnoses / Procedures Referred By Celine almaguer Referred To Contact Diagnoses Left shoulder pain Decreased range of motion (ROM) of shoulder Procedures [facility] Kiley Todd MD [address] [place] [address] Phone: tel: fax: Referral ID Status Reason Start Date Expiration Date Visits Re quested Visits Authorized [id number] Closed 06/23/2017 06/23/2018 1 1 Reason for Visit * Diagnostic Radiology (Routine) - Closed Specialty Diagnoses / Procedures Referred By Celine almaguer Referred To Contact Diagnoses Left shoulder pain Decreased range of motion (ROM) of shoulder Procedures [facility] Kiley Todd MD [address] [place] [address] Phone: tel: fax: Referral ID Status Reason Start Date Expiration Date Visits Re quested Visits Authorized [id number] Closed 06/23/2017 06/23/2018 1 1 Encounter Details Date Type Department Care Team (Latest Contact Info) Description 06/30/2017 2:06 PM CDT - 06/30/2017 3:13 PM CDT Hospital Encounter [facility] [address] [place] [address] Kiley Todd MD [address] [facility] [place] [address] Left shoulder pain; Decreased range of motion [...] None. TECHNIQUE: This study was performed by technician assistant Little Pino under my direct and [...] None. TECHNIQUE: This study was performed by technician assistant Little Pino under my direct and [...] mLs documented in this encounter Care Teams Biomedical Manager Relationship Specialty Start Date End Date Kiley Todd MD [address] [place] [address] PCP - General Occupational Medicine 05/19/17 08/03/17 documented as of this encounter
--- OUTSIDE RECORDS SUMMARY | 2024-11-23 10:21 | XMS_ITS | Encounter Summary ---
Author Organization [employer] Address [address] [place] [address] Care Team Providers Care Visual Manager Name Role Phone Coco Leos PA-C Primary Care Provider [phone] Denny Dey DO Unavailable [phone] Lacey Perdue MD Unavailable [phone] Encounter Details Date Type Department Care Team (Latest Contact Info) Description 07/11/2018 10:05 AM CDT - 07/11/2018 11:59 PM CDT Hospital Encounter [facility] [address] [place] [address] Chronic back pain greater than 3 months [...] (07/11/2018 10:05 AM CDT) Cannabinoids,UR NEG NEG [facility] Comment:(Cutoff is 50 ng/mL) Cocaine,UR NEG NEG [facility] [employer] Comment:(Cutoff is 150 ng/mL ) Opiates,UR POS(A) NEG [facility] Comment:(Cutoff is 100 ng/mL ) Amphetamines,UR NEG NEG [facility] Comment:(Cut off is 500 ng/m l) Phencyclidine,UR NEG NEG [facility] [employer] [facility] Comment:(Cutoff is 25 ng/mL) Tricyclics UR POS(A) NEG [facility] Comment:(Cut off is 200 ng/m L) Barbiturates,UR NEG NEG [facility] Comment:(Cutoff is 200 ng/mL ) Methadone Screen NEG NEG [facility] Comment:(Cutoff is 200 ng/mL ) Benzodiazepines,UR NEG NEG [facility] Comment:(Cutoff is 150 ng/mL ) Oxycodone Screen,UR POS(A) NEG [facility] Comment:(Cutoff is 100 ng/mL ) Propoxyphene,UR NEG NEG [facility] [employer] [facility] Comment:(Cut off is 200 ng/m L) Buprenorphine UR NEG NEG [facility] [employer] Comment:(Cutoff is 10 ng/mL) Methamphetamine NEG NEG [facility] Comment: (Cut off is 500 ng/ml) ---- URINE TOXICOLOGY RESULTS ARE UNCONFIRMED, QUALITATIVE RESULTS ??FOR MEDICAL PURPOSES ONLY. Urine specimen (specimen) 07/11/2018 10:05 AM CDT 07/11/2018 1:19 PM CDT Leonard Jasso PLANT OPERATIONS ENGINEER URINE ORDERABLES Veronica bettie Result [facility] [address] [place], [place] [phone] documented in this encounter Visit Diagnoses Diagnosis Chronic back pain greater than 3 months duration Backache, unspecified Lumbar radiculopathy, chronic Thoracic or lumbosacral neuritis or radiculitis, unspecified documented in this encounter Care Teams Visual Manager Relationship Specialty Start Date End Date Coco Leos PA-C [address] [place] [address] PCP - General Physician Automation Manager 10/25/17 11/24/18 Denny Dey DO [address] [place] [address] Referring Physician Orthopedic Surgery 06/28/18 9 Lacey Perdue MD [address] [phone] Referring Physician Infectious Diseases 06/28/18 documented as of this encounter
--- OUTSIDE RECORDS SUMMARY | 2024-11-23 10:21 | XMS_ITS | Encounter Summary ---
Author Organization [employer] Address [address] [place] [address] Care Team Providers Care Knurling Machine Tender Name Role Phone Kiley Todd MD Primary Care Provider [phone] Reason for Referral * MRI/CAT Scan (Routine) - Closed Specialty Diagnoses / Procedures Referred By Celine almaguer Referred To Contact Radiology Diagnoses Left shoulder pain Decreased range of motion (ROM) of shoulder Procedures MRI UPPER EXTREMITY JOINT W CONTRAST Kiley Todd MD [address] [place] [address] Phone: tel: fax: Referral ID Status Reason Start Date Expiration Date Visits Re quested Visits Authorized [id number] Closed 06/23/2017 06/23/2018 1 1 Reason for Visit * MRI/CAT Scan (Routine) - Closed Specialty Diagnoses / Procedures Referred By Celine almaguer Referred To Contact Radiology Diagnoses Left shoulder pain Decreased range of motion (ROM) of shoulder Procedures MRI UPPER EXTREMITY JOINT W CONTRAST Kiley Todd MD [address] [place] [address] Phone: tel: fax: Referral ID Status Reason Start Date Expiration Date Visits Re quested Visits Authorized [id number] Closed 06/23/2017 06/23/2018 1 1 Encounter Details Date Type Department Care Team (Latest Contact Info) Description 06/30/2017 3:14 PM CDT - 06/30/2017 11:59 PM CDT Hospital Encounter [facility] [address] [place] [address] Kiley Todd MD [address] [place] [address] Left shoulder pain; Decreased range of motion [...] mLs documented in this encounter Care Teams Knurling Machine Tender Relationship Specialty Start Date End Date Kiley Todd MD [address] [place] [address] PCP - General Occupational Medicine 05/19/17 08/03/17 documented as of this encounter
--- OUTSIDE RECORDS SUMMARY | 2024-11-23 10:21 | XMS_ITS | Encounter Summary ---
Author Organization [employer] Address [address] [place] [address] Care Team Providers Care Conductor Freight Name Role Phone Kiley Todd MD Primary Care Provider [phone] Encounter Details Date Type Department Care Team (Latest Contact Info) Description 07/13/2017 9:44 AM CDT - 07/13/2017 11:59 PM CDT Hospital Encounter [facility] [address] [place] [phone] Enrrique Bragg, PT [address] [place] [address] Discharge Disposition: Home - Discharge [...] on filedocumented in this encounter Care Teams Conductor Freight Relationship Specialty Start Date End Date Kiley Todd MD [address] [place] [address] PCP - General Occupational Medicine 05/19/17 08/03/17 documented as of this encounter
--- OUTSIDE RECORDS SUMMARY | 2024-11-23 10:21 | XMS_ITS | Encounter Summary ---
Author Organization [employer] Address [address] [place] [address] Care Team Providers Care Delivery Stock Clerk Name Role Phone Coco Leos PA-C Primary Care Provider [phone] Encounter Details Date Type Department Care Team (Latest Contact Info) Description 06/10/2018 Transcribe Orders [facility] [address] [place] [phone] Lacey Predue MD [address] [address] Cellulitis of right foot (Primary [...] Author No 10/25/2017 2:00 PM Deonna Padilla, OFFICE CLEANER * Do you have difficulty dressing or bathing? (5 years old or older) Answer Date of Assessment Author No 10/25/2017 2:00 PM Deonna Padilla, OFFICE CLEANER * Because of a physical, mental, or emotional condition, do you have difficulty doing errands alone such as visiting a doctor's office or shopping? (15 years old or older) Answer Date of Assessment Author No 10/25/2017 2:00 PM Deonna Padilla, OFFICE CLEANER documented as of this encounter Mental Status * Because of a physical, mental, or emotional condition, do you have serious difficulty concentrating, remembering, or making decisions? (5 years old or older) Answer Entry Date Author No 10/25/2017 2:00 PM Deonna Padilla, OFFICE CLEANER documented in this encounter Plan of Treatment Not on file documented as of this encounter Results * C-reactive protein (06/10/2018 11:15 AM CDT) CRP 0.30 0.2 - 0.9 mg/dL [facility] Blood specimen (specimen) 06/10/2018 11:15 AM CDT 06/10/2018 12:28 PM CDT us Lacey Perdue MD LAB BLOOD ORDERABLES Final R esult [facility] [address] [place], [place] [phone] * (ABNORMAL) Sedimentation rate (06/10/2018 11:15 AM CDT) Sedimentation Rate 57(H) 0 - 20 mm/hr [facility] Blood specimen (specimen) 06/10/2018 11:15 AM CDT 06/10/2018 12:28 PM CDT us Lacey Perdue MD LAB BLOOD ORDERABLES Final R esult [facility] [address] [place], [place] [phone] * Comprehensive metabolic panel (06/10/2018 11:15 AM CDT) Sodium 137 136 - 145 mmol/L [facility] Potassium 4.3 3.5 - 5.1 mmol/L [facility] Chloride 103 98 - 107 mmol/L [facility] CO2 30 21 - 32 mmol/L [facility] Glucose 105 74 - 106 mg/dL [facility] BUN 11 7.0 - 18.0 mg/dL [facility] Creatinine 0.86 0.70 - 1.30 mg/dL [facility] Calcium 8.8 8.5 - 10.1 mg/dL [facility] Total Protein 6.9 6.4 - 8.2 g/dL [facility] Albumin 3.4 3.4 - 5.0 g/dL [facility] Bilirubin Total 0.3 0.2 - 1.0 mg/dL [facility] Alkaline Phosphatase 95 56 - 119 U/L [facility] AST 17 15 - 37 U/L [facility] [employer] ALT 14 12 - 78 U/L [facility] Creatinine Based eGFR >60 [facility] [employer] [facility] Comment: GFR REFERENCE RANGE: >60 mL/min/1.73m2 -- An eGFR of > than, or = to 60, may indicate normal renal function or mildly decreased GFR. EGFR /Syrian >60 [facility] Comment: -- An eGFR of > than, or = to 60, may indicate normal renal function or mildly decreased GFR. Blood specimen (specimen) 06/10/2018 11:15 AM CDT 06/10/2018 12:28 PM CDT us Lacey Perdue MD LAB BLOOD ORDERABLES Final R esult [facility] [address] [place], [place] [phone] * (ABNORMAL) CBC and differential (06/10/2018 11:15 AM CDT) WBC 5.89 4.00 - 11.00 th/mm3 [facility] RBC 4.29(L) 4.50 - 6.50 mill/mm3 [facility] HGB 13.0(L) 13.8 - 18.0 g/dL [facility] HCT 38.9(L) 40.0 - 54.0 % [facility] MCV 90.7 76 - 99 fL [facility] MCH 30.3 27.0 - 32.0 pg [facility] MCHC 33.4 30.0 - 35.0 g/dL [facility] Platelets 193 135 - 470 th/mm3 [facility] RDW-CV 39.8 34.9 - 51.3 fL [facility] MPV 9.9 8.0 - 12.5 fL [facility] Differential Type AUTOMATED DIFFERENTIAL [facility] Neutrophil % 54.8 45.0 - 75.0 % [facility] Lymphocytes % 32.6 20.0 - 45.0 % [facility] Monocyte % 9.8 0.0 - 10.0 % [facility] Eosinophils Relative % 2.4 0.0 - 5.0 % [facility] Basophils % 0.2 0.0 - 2.0 % [facility] Immature Granulocytes% 0.2 0.0 - 1.6 % [facility] Neutrophils Absolute 3.23 2.00 - 7.900 th/mm3 [facility] Lymphocytes Absolute 1.92 1.00 - 4.00 th/mm3 [facility] Monos Absolute 0.58 0.0 - 0.80 th/mm3 [facility] Eosinophils Absolute Count 0.14 0.00 - 0.40 th/mm3 [facility] Basophils Absolute 0.01 0.00 - 0.10 th/mm3 [facility] Immature Granulocytes Absolute 0.01 0.0 - 0.20 th/mm3 [facility] Blood specimen (specimen) BLOOD SPECIMEN / Unknown 06/10/2018 11:15 AM CDT 06/10/2018 12:28 PM CDT us Lacey Perdue MD LAB BLOOD ORDERABLES Final R esult [facility] [address] [place], [place] [phone] documented in this encounter Visit Diagnoses Diagnosis Cellulitis of right foot- Primary Cellulitis and abscess of foot, except toes Antibiotic long-term use Encounter for long-term (current) use of antibiotics Urinary tract infection Urinary tract infection, site not specified Encounter for fitting of portacath Fitting and adjustment of vascular catheter documented in this encounter Care Teams Delivery Stock Clerk Relationship Specialty Start Date End Date Coco Leos PA-C [address] [address] PCP - General Physician Sewer Bricklayer 10/25/17 11/24/18 documented as of this encounter
--- OUTSIDE RECORDS SUMMARY | 2024-11-23 10:21 | XMS_ITS | Encounter Summary ---
Author Organization [employer] Address [address] [place] [address] Care Team Providers Care Ceramic Worker Name Role Phone Coco Leos PA-C Primary Care Provider [phone] Denny Dey DO Unavailable [phone] Lacey Perdue MD Unavailable [phone] Reason for Visit * Reason Onset Date Comments Medication Refill 08/29/2018 c/o leg pain Encounter Details Date Type Department Care Team (Late st Contact Info) Description 08/29/2018 Refill [address] [id number] [place], [place] [phone] Yael Sim, FACTORY HELPER [address] [facility] [address] [place] [address] Social History Tobacco Use Types [...] No 10/25/2017 2:00 PM Deonna Padilla, TAX MANAGER CPA * Are you blind or do you have serious difficulty seeing, even when wearing glasses? Answer Date of Assessment Author No 10/25/2017 2:00 PM FANCY PACKER Galvan, Am y S, TAX MANAGER CPA * Do you have serious difficulty walking or climbing stairs? (5 years old or older) Answer Date of Assessment Author No 10/25/2017 2:00 PM Deonna Padilla, TAX MANAGER CPA * Do you have difficulty dressing or bathing? (5 years old or older) Answer Date of Assessment Author No 10/25/2017 2:00 PM Deonna Padilla S, TAX MANAGER CPA * Because of a physical, mental, or emotional condition, do you have difficulty doing errands alone such as visiting a doctor's office or shopping? (15 years old or older) Answer Date of Assessment Author No 10/25/2017 2:00 PM Deonna Padilla S, TAX MANAGER CPA documented as of this encounter Mental Status * Because of a physical, mental, or emotional condition, do you have serious difficulty concentrating, remembering, or making decisions? (5 years old or older) Answer Entry Date Author No 10/25/2017 2:00 PM Deonna Padilla, TAX MANAGER CPA documented in this encounter Plan of Treatment Not on file documented as of this encounter Goals Goal Patient Goal Type Associated Problems Recent Progress Patient-Stated? Author Blood Pressure < 140/90 Blood Pressure 134/86(2022 2:25 PM CDT) No Leonard Jasso APRN documented as of this encounter Visit Diagnoses Not on filedocumented in this encounter Care Teams Ceramic Worker Relationship Specialty Start Date End Date Coco Leos PA-C [address] [place] [address] PCP - General Physician Manager Business Intelligence 10/25/17 11/24/18 Denny Dey DO [address] [place] [address] Referring Physician Orthopedic Surgery 06/28/18 9 Lacey Perdue MD [address] [phone] Referring Physician Infectious Diseases 06/28/18 documented as of this encounter
--- OUTSIDE RECORDS SUMMARY | 2024-11-23 10:21 | XMS_ITS | Encounter Summary ---
Author Organization [employer] Address [address] [place] [address] Care Team Providers Care Damage Appraiser Name Role Phone Coco Leos PA-C Primary Care Provider [phone] Encounter Details Date Type Department Care Team (Latest Contact Info) Description 06/03/2018 11:45 AM CDT - 06/03/2018 11:59 PM CDT Hospital Encounter [facility] [address] [place] [phone] Cellulitis of right foot; Encounter for long-term [...] Sedimentation Rate 69(H) 0 - 20 mm/hr [facility] Blood specimen (specimen) 06/03/2018 11:45 AM CDT 06/03/2018 1:08 PM CDT us Lacey Perdue MD LAB BLOOD ORDERABLES Final R esult [facility] [address] [place], [place] [phone] * (ABNORMAL) C-reactive protein (06/03/2018 11:45 AM CDT) CRP 1.90(H) 0.2 - 0.9 mg/dL [facility] Blood specimen (specimen) 06/03/2018 11:45 AM CDT 06/03/2018 1:08 PM CDT us Lacey Perdue MD LAB BLOOD ORDERABLES Final R esult [facility] [address] [place], [place] [phone] * (ABNORMAL) Comprehensive metabolic panel (06/03/2018 11:45 AM CDT) Sodium 139 136 - 145 mmol/L [facility] Potassium 4.0 3.5 - 5.1 mmol/L [facility] Chloride 102 98 - 107 mmol/L [facility] CO2 30 21 - 32 mmol/L [facility] Glucose 138(H) 74 - 106 mg/dL [facility] BUN 9 7.0 - 18.0 mg/dL [facility] Creatinine 1.00 0.70 - 1.30 mg/dL [facility] Calcium 8.9 8.5 - 10.1 mg/dL [facility] Total Protein 6.5 6.4 - 8.2 g/dL [facility] Albumin 3.0(L) 3.4 - 5.0 g/dL [facility] Bilirubin Total 0.3 0.2 - 1.0 mg/dL [facility] Alkaline Phosphatase 97 56 - 119 U/L [facility] AST 18 15 - 37 U/L [facility] ALT 13 12 - 78 U/L [facility] Creatinine Based eGFR >60 [facility] Comment: GFR REFERENCE RANGE: >60 mL/min/1.73m2 -- An eGFR of > than, or = to 60, may indicate normal renal function or mildly decreased GFR. EGFR /Scottish >60 [facility] Comment: -- An eGFR of > than, or = to 60, may indicate normal renal function or mildly decreased GFR. Blood specimen (specimen) 06/03/2018 11:45 AM CDT 06/03/2018 1:08 PM CDT us Lacey Perdue MD LAB BLOOD ORDERABLES Final R esult [facility] [address] [place], [place] [phone] * (ABNORMAL) CBC and differential (06/03/2018 11:45 AM CDT) WBC 5.55 4.00 - 11.00 th/mm3 [facility] RBC 4.06(L) 4.50 - 6.50 mill/mm3 [facility] HGB 12.5(L) 13.8 - 18.0 g/dL [facility] HCT 36.9(L) 40.0 - 54.0 % [facility] MCV 90.9 76 - 99 fL [facility] MCH 30.8 27.0 - 32.0 pg [facility] MCHC 33.9 30.0 - 35.0 g/dL [facility] Platelets 221 135 - 470 th/mm3 [facility] RDW-CV 39.0 34.9 - 51.3 fL [facility] MPV 9.7 8.0 - 12.5 fL [facility] Differential Type AUTOMATED DIFFERENTIAL [facility] [employer] [facility] Neutrophil % 63.4 45.0 - 75.0 % [facility] Lymphocytes % 24.0 20.0 - 45.0 % [facility] [employer] [facility] Monocyte % 9.7 0.0 - 10.0 % [facility] Eosinophils Relative % 2.5 0.0 - 5.0 % [facility] Basophils % 0.2 0.0 - 2.0 % [facility] Immature Granulocytes% 0.2 0.0 - 1.6 % [facility] Neutrophils Absolute 3.52 2.00 - 7.900 th/mm3 [facility] Lymphocytes Absolute 1.33 1.00 - 4.00 th/mm3 [facility] Monos Absolute 0.54 0.0 - 0.80 th/mm3 [facility] Eosinophils Absolute Count 0.14 0.00 - 0.40 th/mm3 [facility] Basophils Absolute 0.01 0.00 - 0.10 th/mm3 [facility] Immature Granulocytes Absolute 0.01 0.0 - 0.20 th/mm3 [facility] Blood specimen (specimen) BLOOD SPECIMEN / Unknown 06/03/2018 11:45 AM CDT 06/03/2018 1:08 PM CDT us Lacey Perdue MD LAB BLOOD ORDERABLES Final R esult [facility] [address] [place], [place] [phone] documented in this encounter Visit Diagnoses Diagnosis Cellulitis of right foot Cellulitis and abscess of foot, except toes Encounter for long-term (current) use of antibiotics Urinary tract infection, site not specified documented in this encounter Care Teams Damage Appraiser Relationship Specialty Start Date End Date Coco Leos PA-C [address] [place] [address] PCP - General Physician Medical Imaging Specialist 10/25/17 11/24/18 documented as of this encounter
--- OUTSIDE RECORDS SUMMARY | 2024-11-23 10:21 | XMS_ITS | Encounter Summary ---
Author Organization [employer] Address [address] [place] [address] Care Team Providers Care Rn Bone Marrow Transplant Name Role Phone Coco Leos PA-C Primary Care Provider [phone] Denny Dey DO Unavailable [phone] Lacey Perdue MD Unavailable [phone] Reason for Visit * Reason Comments Results Encounter Details Date Type Department Care Team (Late st Contact Info) Description 08/08/2018 9:15 AM CDT Office Visit [address] [phone] Leonard Jasso, CARPENTER RAILCAR [address] [place], [place] [phone] High risk medication use (Primary Dx); Abnormal [...] 10/25/2017 2:00 PM Deonna Padilla S, WATER CONSERVATION SPECIALIST * Are you blind or do you have serious difficulty seeing, even when wearing glasses? Answer Date of Assessment Author No 10/25/2017 2:00 PM JOHN Galvan Am y S, WATER CONSERVATION SPECIALIST * Do you have serious difficulty walking or climbing stairs? (5 years old or older) Answer Date of Assessment Author No 10/25/2017 2:00 PM JOHN Galvan Am y S, WATER CONSERVATION SPECIALIST * Do you have difficulty dressing or bathing? (5 years old or older) Answer Date of Assessment Author No 10/25/2017 2:00 PM CAR CUSTOMIZER Deonna Galvan y S, WATER CONSERVATION SPECIALIST * Because of a physical, mental, or emotional condition, do you have difficulty doing errands alone such as visiting a doctor's office or shopping? (15 years old or older) Answer Date of Assessment Author No 10/25/2017 2:00 PM JOHN Galvan Am y S, WATER CONSERVATION SPECIALIST documented as of this encounter Mental Status * Because of a physical, mental, or emotional condition, do you have serious difficulty concentrating, remembering, or making decisions? (5 years old or older) Answer Entry Date Author No 10/25/2017 2:00 PM Deonna Padilla S, WATER CONSERVATION SPECIALIST documented in this encounter Patient Instructions [...] 9:33 AM CDT) Cannabinoids,UR NEG NEG [facility] Comment:(Cutoff is 50 ng/mL) Cocaine,UR NEG NEG [facility] [employer] Comment:(Cutoff is 150 ng/mL ) Opiates,UR POS(A) NEG [facility] Comment:(Cutoff is 100 ng/mL ) Amphetamines,UR NEG NEG [facility] Comment:(Cut off is 500 ng/m l) Phencyclidine,UR NEG NEG [facility] Comment:(Cutoff is 25 ng/mL) Tricyclics UR POS(A) NEG [facility] Comment:(Cut off is 200 ng/m L) Barbiturates,UR NEG NEG [facility] Comment:(Cutoff is 200 ng/mL ) Methadone Screen NEG NEG [facility] Comment:(Cutoff is 200 ng/mL ) Benzodiazepines,UR NEG NEG C [facility] Comment:(Cutoff is 150 ng/mL ) Oxycodone Screen,UR POS(A) NEG [facility] Comment:(Cutoff is 100 ng/mL ) Propoxyphene,UR NEG NEG [facility] Comment:(Cut off is 200 ng/m L) Buprenorphine UR NEG NEG [facility] Comment:(Cutoff is 10 ng/mL) Methamphetamine NEG NEG [facility] Comment: (Cut off is 500 ng/ml) ---- URINE TOXICOLOGY RESULTS ARE UNCONFIRMED, QUALITATIVE RESULTS ??FOR MEDICAL PURPOSES ONLY. Urine specimen (specimen) 08/08/2018 9:33 AM CDT 08/08/2018 2:07 PM CDT Leonard Jasso APRN URINE ORDERABLES Veronica alexandre Result [facility] [address] [facility] [place], [place] [phone] documented in this encounter Visit Diagnoses Diagnosis High risk medication use- Primary Encounter for long-term (current) use of other medications Abnormal drug screen Nonspecific abnormal toxicological findings Substance abuse Other, mixed, or unspecified nondependent drug abuse, unspecified documented in this encounter Care Teams Rn Bone Marrow Transplant Relationship Specialty Start Date End Date Coco Leos PA-C [address] [place], [place] [address] PCP - General Physician Insert Cutter 10/25/17 11/24/18 Denny Dye DO [address] [place] [address] Referring Physician Orthopedic Surgery 06/28/18 9 Lacey Perdue MD [address] [place] [phone] Referring Physician Infectious Diseases 06/28/18 documented as of this encounter
--- OUTSIDE RECORDS SUMMARY | 2024-11-23 10:21 | XMS_ITS | Encounter Summary ---
Author Organization [employer] Address [address] [place] [address] Care Team Providers Care Chief Executive Name Role Phone Kiley Todd MD Primary Care Provider [phone] Reason for Referral * Diagnostic Radiology (Routine) - Closed Specialty Diagnoses / Procedures Referred By Celine almaguer Referred To Contact Diagnoses Left shoulder pain Decreased range of motion (ROM) of shoulder Procedures [facility] Kiley Todd MD [address] [place] [address] Phone: tel: fax: Referral ID Status Reason Start Date Expiration Date Visits Re quested Visits Authorized [id number] Closed 06/23/2017 06/23/2018 1 1 * MRI/CAT Scan (Routine) - Closed Specialty Diagnoses / Procedures Referred By Celine almaguer Referred To Contact Radiology Diagnoses Left shoulder pain Decreased range of motion (ROM) of shoulder Procedures MRI UPPER EXTREMITY JOINT W CONTRAST Kiley Todd MD [address] [place] [address] Phone: tel: fax: Referral ID Status Reason Start Date Expiration Date Visits Re quested Visits Authorized [id number] Closed 06/23/2017 06/23/2018 1 1 Encounter Details Date Type Department Care Team (Latest Contact Info) Description 06/23/2017 Transcribe Orders [facility] [address] [place] [address] Kiley Todd MD [address] [place] [address] Left shoulder pain (Primary Dx); Decreased range [...] None. TECHNIQUE: This study was performed by assistant inventory manager Little Pino under my direct and personal [...] None. TECHNIQUE: This study was performed by assistant inventory manager Little Pino under my direct and personal [...] shoulder documented in this encounter Care Teams Chief Executive Relationship Specialty Start Date End Date Kiley Todd MD [address] [place] [address] PCP - General Occupational Medicine 05/19/17 08/03/17 documented as of this encounter
--- OUTSIDE RECORDS SUMMARY | 2024-11-23 10:21 | XMS_ITS | Encounter Summary ---
Author Organization [employer] Address [address] [place] [address] Care Team Providers Care Roller Checker Name Role Phone Kiley Todd MD Primary Care Provider [phone] Encounter Details Date Type Department Care Team (Latest Contact Info) Description 08/03/2017 12:21 PM CDT - 08/03/2017 11:59 PM CDT Hospital Encounter [facility] [address] [place], [place] [phone] Verónica Dominguez, PT [address] [place], [place] [phone] Discharge Disposition: Home - Discharge to Home [...] wants him to move his care to [place]. Headache has been better since he hasnt [...] on filedocumented in this encounter Care Teams Roller Checker Relationship Specialty Start Date End Date Kiley Todd MD [address] [place] [address] PCP - General Occupational Medicine 05/19/17 08/03/17 documented as of this encounter
--- OUTSIDE RECORDS SUMMARY | 2024-11-23 10:21 | XMS_ITS | Encounter Summary ---
Author Organization [employer] Address [address] [place] [address] Care Team Providers Care Broke Beater Name Role Phone Coco Leos PA-C Primary Care Provider [phone] Denny Dey DO Unavailable [phone] Lacey Perdue MD Unavailable [phone] Reason for Visit * Reason Comments Medication Refill right ankle infectio n, left shoulder pain, lower left back Encounter Details Date Type Department Care Team (Late st Contact Info) Description 08/03/2018 2:15 PM CDT Office Visit [address] [id number] Leonard Jasso, GRE[employer] GROUNDS SUPERINTENDENT [address] [place], [place] [phone] Chronic bilateral low back pain with left-sided [...] Author No 10/25/2017 2:00 PM Deonna Padlila ARNP * Do you have serious difficulty [...] Drug Screen (08/03/2018 3:00 PM CDT) Pathologist [facility] Cannabinoids,UR NEG NEG [facility] Comment:(Cutoff is 50 ng/mL) Cocaine,UR NEG NEG [facility] Comment:(Cutoff is 150 ng/mL ) Opiates,UR NEG NEG [facility] Comment:(Cutoff is 100 ng/mL ) Amphetamines,UR NEG NEG [facility] Comment:(Cut off is 500 ng/m l) Phencyclidine,UR NEG NEG [facility] Comment:(Cutoff is 25 ng/mL) Tricyclics UR POS(A) NEG [facility] Comment:(Cut off is 200 ng/m L) Barbiturates,UR NEG NEG [facility] Comment:(Cutoff is 200 ng/mL ) Methadone Screen NEG NEG [facility] Comment:(Cutoff is 200 ng/mL ) Benzodiazepines,UR NEG NEG [facility] Comment:(Cutoff is 150 ng/mL ) Oxycodone Screen,UR NEG NEG [facility] Comment:(Cutoff is 100 ng/mL ) Propoxyphene,UR NEG NEG [facility] Comment:(Cut off is 200 ng/m L) Buprenorphine UR NEG NEG [facility] Comment:(Cutoff is 10 ng/mL) Methamphetamine NEG NEG [facility] Comment: (Cut off is 500 ng/ml) ---- URINE TOXICOLOGY RESULTS ARE UNCONFIRMED, QUALITATIVE RESULTS ??FOR MEDICAL PURPOSES ONLY. Urine specimen (specimen) 08/03/2018 3:00 PM CDT 08/03/2018 4:14 PM CDT Leonard Jasso APRN URINE ORDERABLES Veronica alexandre Result [facility] [address] [place], [place] [phone] documented in this encounter Visit Diagnoses Diagnosis Chronic bilateral low back pain with left-sided sciatica- Primary Wound of right lower extremity, subsequent encounter Injury of left rotator cuff, sequela documented in this encounter Care Teams Broke Beater Relationship Specialty Start Date End Date Coco Leos PA-C [address] [place] [address] PCP - General Physician Food Storeroom Clerk 10/25/17 11/24/18 Denny Dey DO [address] [place] [address] Referring Physician Orthopedic Surgery 06/28/18 9 Lacey Perdue MD [address] [phone] Referring Physician Infectious Diseases 06/28/18 documented as of this encounter
--- OUTSIDE RECORDS SUMMARY | 2024-11-23 10:21 | XMS_ITS | Encounter Summary ---
Author Organization [employer] Address [address] [place] [address] Care Team Providers Care Director Of Product Development Name Role Phone Coco Leos PA-C Primary Care Provider [phone] Encounter Details Date Type Department Care Team (Latest Contact Info) Description 05/27/2018 Transcribe Orders [facility] [address] [place] [phone] Lacey Perdue MD [address] [phone] Cellulitis of right foot (Primary [...] Assessment Author No 10/25/2017 2:00 PM BUSINESS CONTINUITY DIRECTOR Galvan, Am y S, MENTAL TESTER * Do you have serious difficulty [...] Sedimentation Rate 103(H) 0 - 20 mm/hr [email or web address] Blood specimen (specimen) 05/27/2018 9:45 AM CDT 05/27/2018 11:02 AM CDT us Lacey Perdue MD LAB BLOOD ORDERABLES Final R esult [email or web address] [address] [place], [place] [phone] * (ABNORMAL) C-reactive protein (05/27/2018 9:45 AM CDT) CRP 8.70(H) 0.2 - 0.9 mg/dL [email or web address] Blood specimen (specimen) 05/27/2018 9:45 AM CDT 05/27/2018 11:02 AM CDT us Lacey Perdue MD LAB BLOOD ORDERABLES Final R esult [facility] [address] [place], [place] [phone] * (ABNORMAL) Comprehensive metabolic panel (05/27/2018 9:45 AM CDT) Sodium 134(L) 136 - 145 mmol/L [facility] [employer] [facility] Potassium 4.4 3.5 - 5.1 mmol/L [facility] Chloride 99 98 - 107 mmol/L [facility] CO2 35(H) 21 - 32 mmol/L [facility] Glucose 113(H) 74 - 106 mg/dL [facility] BUN 13 7.0 - 18.0 mg/dL [facility] Creatinine 1.05 0.70 - 1.30 mg/dL [facility] Calcium 9.0 8.5 - 10.1 mg/dL [facility] Total Protein 6.5 6.4 - 8.2 g/dL [facility] [employer] [facility] Albumin 2.9(L) 3.4 - 5.0 g/dL [facility] Bilirubin Total 0.3 0.2 - 1.0 mg/dL [facility] Alkaline Phosphatase 105 56 - 119 U/L [facility] AST 20 15 - 37 U/L [facility] ALT 31 12 - 78 U/L [facility] [employer] [facility] Creatinine Based eGFR >60 [facility] Comment: GFR REFERENCE RANGE: >60 mL/min/1.73m2 -- An eGFR of > than, or = to 60, may indicate normal renal function or mildly decreased GFR. EGFR /Filipino >60 [facility] Comment: -- An eGFR of > than, or = to 60, may indicate normal renal function or mildly decreased GFR. Blood specimen (specimen) 05/27/2018 9:45 AM CDT 05/27/2018 11:02 AM CDT us Lacey Perdue MD LAB BLOOD ORDERABLES Final R esult [facility] [address] [place], [place] [phone] * (ABNORMAL) CBC and differential (05/27/2018 9:45 AM CDT) WBC 10.53 4.00 - 11.00 th/mm3 [facility] RBC 4.08(L) 4.50 - 6.50 mill/mm3 [facility] HGB 12.6(L) 13.8 - 18.0 g/dL [facility] HCT 38.5(L) 40.0 - 54.0 % [facility] MCV 94.4 76 - 99 fL [facility] MCH 30.9 27.0 - 32.0 pg [facility] MCHC 32.7 30.0 - 35.0 g/dL [facility] Platelets 386 135 - 470 th/mm3 [facility] RDW-CV 40.6 34.9 - 51.3 fL [facility] MPV 9.6 8.0 - 12.5 fL [facility] Differential Type AUTOMATED DIFFERENTIAL [facility] Neutrophil % 65.7 45.0 - 75.0 % [facility] Lymphocytes % 21.4 20.0 - 45.0 % [facility] Monocyte % 9.4 0.0 - 10.0 % [facility] Eosinophils Relative % 2.3 0.0 - 5.0 % [facility] Basophils % 0.3 0.0 - 2.0 % [facility] Immature Granulocytes% 0.9 0.0 - 1.6 % [facility] Neutrophils Absolute 6.93 2.00 - 7.900 th/mm3 [facility] Lymphocytes Absolute 2.25 1.00 - 4.00 th/mm3 [facility] Monos Absolute 0.99(H) 0.0 - 0.80 th/mm3 [facility] Eosinophils Absolute Count 0.24 0.00 - 0.40 th/mm3 [facility] Basophils Absolute 0.03 0.00 - 0.10 th/mm3 [facility] Immature Granulocytes Absolute 0.09 0.0 - 0.20 th/mm3 [facility] Blood specimen (specimen) BLOOD SPECIMEN / Unknown 05/27/2018 9:45 AM CDT 05/27/2018 11:02 AM CDT us Lacey Perdue MD LAB BLOOD ORDERABLES Final R esult [facility] [address] [place], [place] [phone] documented in this encounter Visit Diagnoses Diagnosis Cellulitis of right foot- Primary Cellulitis and abscess of foot, except toes Encounter for long-term (current) use of antibiotics Urinary tract infection, site not specified Fitting and adjustment of vascular catheter documented in this encounter Care Teams Director Of Product Development Relationship Specialty Start Date End Date Coco Leos PA-C [address] [address] PCP - General Physician Interchange Agent 10/25/17 11/24/18 documented as of this encounter
--- OUTSIDE RECORDS SUMMARY | 2024-11-23 10:21 | XMS_ITS | Encounter Summary ---
Author Organization [employer] Address [address] [place] [address] Care Team Providers Care Sap Mobility Architect Name Role Phone Patient, None Per Primary Care Provider Unavaila ble Encounter Details Date Type Department Care Team (Latest Contact Info) Description 08/06/2017 9:38 AM CDT - 08/06/2017 10:39 AM CDT Hospital Encounter [facility] [address] [place] [address] Eden Anthony, STUDENT SUPPORT COUNSELOR [address] [place], [place] [phone] Discharge Disposition: Home - Discharge to Home or Self Care Social History Tobacco Use Types Packs/Day Years Used Date Smoking Tobacco: Never Assessed Sex and Gender Information Value Date Recorded Sex Assigned at Not on file Legal Sex Male 10:58 AM CDT Gender Identity Not on file Sexual Orientation Not on file documented as of this encounter Nursing Notes * Eden Anthony, STUDENT SUPPORT COUNSELOR - 08/06/2017 11:12 AM CDT 08/06/17 0950 [...] on filedocumented in this encounter Care Teams Sap Mobility Architect Relationship Specialty Start Date End Date Patient, None Per PCP - General 08/04/17 10/24/17 documented as of this encounter
--- OUTSIDE RECORDS SUMMARY | 2024-11-23 10:21 | XMS_ITS | Encounter Summary ---
Author Organization [employer] Address [address] [place] [address] Care Team Providers Care Insurance Claims Supervisor Name Role Phone Patient, None Per Primary Care Provider Unavaila ble Encounter Details Date Type Department Care Team (Latest Contact Info) Description 08/06/2017 10:40 AM CDT - 08/06/2017 11:59 PM CDT Hospital Encounter [facility] [address] [place] [address] Enrrique Bragg, PT [address] [place], [place] [phone] Discharge Disposition: Home - Discharge to Home [...] Kiley Todd MD [address] [place] [address] 08/06/17 1102 General OP therapy treatment number 1 NW Pertinent Medical History OA, L CAROLANN approx 2 years ago, L elbow ORIF, R wrist ORIF, B RC repairs Referring Provider [employer] Insurance WC- [employer] Insurance/Authorization PN 11/24 2 patient identifiers Yes Onset Date 04/16/17 Start of Care Date 08/06/17 Primary diagnosis neck pain, limited ROM and COYNE Therapy treatment diagnosis Impaired pain, ROM, functional activities associated with cervical strain and cervicogenic COYNE Physician Follow up dates 08/17/17 (1000) Recent diagnostic testing imaging at [facility] after fall was (-) for fracture per pt report Mechanism of Injury/Condition Fall at work Prior and Current level of function status Prior: Pt lives in [place] with his . He currently lives in [place], [place] while working here which is approx a [address] (I) with daily activities. 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 [address] documented in this encounter Plan of Treatment Not on file documented as of this encounter Visit Diagnoses Not on filedocumented in this encounter Care Teams Insurance Claims Supervisor Relationship Specialty Start Date End Date Patient, None Per PCP - General 08/04/17 10/24/17 documented as of this encounter
--- OUTSIDE RECORDS SUMMARY | 2024-11-23 10:21 | XMS_ITS | Encounter Summary ---
Author Organization [employer] Address [address] [place] [address] Care Team Providers Care Procurement Manager Name Role Phone Kiley Todd MD Primary Care Provider [phone] Encounter Details Date Type Department Care Team (Latest Contact Info) Description 07/08/2017 9:00 AM CDT - 07/08/2017 11:59 PM CDT Hospital Encounter [facility] [address] [place] [address] Discharge Disposition: Home - Discharge [...] on filedocumented in this encounter Care Teams Procurement Manager Relationship Specialty Start Date End Date Kiley Todd MD [address] [place] [address] PCP - General Occupational Medicine 05/19/17 08/03/17 documented as of this encounter
--- OUTSIDE RECORDS SUMMARY | 2024-11-23 10:21 | XMS_ITS | Encounter Summary ---
Author Organization [employer] Address [address] [place] [id number] Care Team Providers Care Head Bellhop Captain Name Role Phone Stephanie Leos PA-C Primary Care Provider [phone] Reason for Visit * Reason Comments Back Pain-New >28 days Psychiatric Evaluation * Auth/Cert Specialty Diagnoses / Procedures Referred By Celine almaguer Referred To Contact Behavioral Health Diagnoses Suicidal ideation [facility] [address] [place] [address] Phone: tel: Referral ID Status Reason Start Date Expiration Date Visits Re quested Visits Authorized [id number] 10/25/2017 10/25/2018 1 1 Encounter Details Date Type Department Care Team (Latest Contact Info) Description 10/25/2017 8:42 AM MULTIPLE DRILL OPERATOR - 10/29/2017 1:12 PM MULTIPLE DRILL OPERATOR Hospital Encounter CR[facility] [address] [place], [place] [id number] Cleve Marroquin, OPTICAL MODEL MAKER AND TESTER [address] [place] [phone] Shanta Barbosa MD Depression, unspecified depression type [...] Comments Blood Pressure 98/60 10/29/2017 7:40 AM MULTIPLE DRILL OPERATOR Pulse 60 10/29/2017 7:40 AM MULTIPLE DRILL OPERATOR Temperature 36.5 ??C (97.7 ??F) 10/29/2017 7:40 AM CS T Respiratory Rate 16 10/29/2017 7:40 AM MULTIPLE DRILL OPERATOR Oxygen Saturation 97% 10/25/2017 4:05 PM MULTIPLE DRILL OPERATOR Inhaled Oxygen Concentration - - Weight 83.2 kg (183 lb 6.8 oz) 10/26/2017 6:05 A M MULTIPLE DRILL OPERATOR Height 180.3 cm (5' 11 ) 10/25/2017 1:39 PM MULTIPLE DRILL OPERATOR Body Mass Index 25.58 10/25/2017 1:39 PM MULTIPLE DRILL OPERATOR documented in this encounter Functional Status [...] Information APPT SCHEDULED WITH MICHELA BAUTISTA @ [facility] ON WEDNESDAY,11-16-17 @ 11:00. . Contact information: PHONE: [phone] ADDRESS: [address] [place] [address], [place] [address] [address] The patient is NOT prescribed antipsychotic medication. [employer] dictation software use. Discharge medications: Medication List [...] Shanta Barbosa MD at 10/29/2017 2:36 PM MULTIPLE DRILL OPERATOR IPLE DRILL OPERATOR IPLE DRILL OPERATOR documented in this encounter Discharge Instructions * Discharge Instructions* Leonard Vivas RN - 10/29/2017 11:37 AM MULTIPLE DRILL OPERATOR [facility] Discharge Date: [...] from secondhand smoke. For more help call [phone]. ( ). If you have questions or concerns, call: Your Doctor: Meme VAZQUEZ [phone] Nurses's Station: 1W [phone] Phone number when leave hospital. National Suicide Prevention Hotline: (5-849-Gahsppp) National Crisis Line: I know why I was in the hospital. I know what I need to do when I get home. I have a copy of this paper. IPLE DRILL OPERATOR documented in this encounter Medications at Time [...] patient, and I agree with the assigned OPTICAL MODEL MAKER AND TESTER's assessment and plan.There is no overt psychosis [...] 171 10/25/2017 TSH 1.48 10/25/2017 Billing Code 86465. Total Time Spent: 35 minutes in conjunction with the assigned OPTICAL MODEL MAKER AND TESTER, see his/heraccompanying note this date. SHANTA BARBOSA MD IPLE DRILL OPERATOR * Cleve Marroquin, OPTICAL MODEL MAKER AND TESTER - 10/28/2017 1:43 PM CST PSYCHIATRY SUBSEQUENT [...] with Dr. Barbosa Complexity: leeanna (Billing Code 03973) Current Scheduled Medications amitriptyline 75 mg Nightly baclofen 10 mg Nightly DULoxetine 60 mg QAM DULoxetine 30 mg Nightly lidocaine BID oxyCODONE HCl ER 15 mg 2 times per day propranolol 60 mg Daily Current As Needed Medications acetaminophen 1,000 mg TID PRN capsaicin TID PRN hydrOXYzine pamoate 25 mg TID PRN oxyCODONE 5 mg Q4H PRN And oxyCODONE-acetaminophen 1 tablet Q4H PRN [employer] dictation software used. GEORGE Francis, DNP Psychiatry IPLE DRILL OPERATOR * Phyllis Lama, CHAP - 10/27/2017 4:39 [...] walk with his three dogs. --Chaplain Elise IPLE DRILL OPERATOR * Cleve Marroquin ARNP - 10/27/2017 2:02 [...] with Dr. Barbosa Complexity: moderate (Billing Code 97395) Current Scheduled Medications amitriptyline 75 mg Nightly baclofen 10 mg Nightly DULoxetine 60 mg QAM DULoxetine 30 mg Nightly lidocaine BID oxyCODONE HCl ER 15 mg 2 times per day propranolol 60 mg Daily Current As Needed Medications acetaminophen 1,000 mg TID PRN capsaicin TID PRN hydrOXYzine pamoate 25 mg TID PRN oxyCODONE 5 mg Q4H PRN And oxyCODONE-acetaminophen 1 tablet Q4H PRN [employer] dictation software used. GEORGE Francis, DNP Psychiatry IPLE DRILL OPERATOR * Cleve Marroquin ARNP - 10/26/2017 11:44 [...] to restart the gabapentin as his primary health care coach stopped this medication. Gabapentin was stopped for [...] with Dr. Barbosa Complexity: moderate (Billing Code 49179) Current Scheduled Medications amitriptyline 75 mg Nightly baclofen 10 mg Nightly DULoxetine 30 mg BID lidocaine BID oxyCODONE HCl ER 15 mg 2 times per day propranolol 60 mg Daily Current As Needed Medications acetaminophen 1,000 mg TID PRN capsaicin TID PRN hydrOXYzine pamoate 25 mg TID PRN oxyCODONE 5 mg Q4H PRN And oxyCODONE-acetaminophen 1 tablet Q4H PRN [employer] dictation software used. GEORGE Francis, DNP Psychiatry IPLE DRILL OPERATOR documented in this encounter H&P Notes * Cleve Marroquin ARNP - 10/25/2017 3:23 PM CST [facility] [place], [place] [address] Patient Name: Edilberto Hawley MR Number: [id number] : 1955 ADMIT DATE: 10/25/2017 CONFIDENTIAL: Do [...] Patient reports that he actually lives in [place] but is in [place] for work. Patient reports that [place] however she has returned to [place] and he remains in [place] with his sister. Patient reports that he [...] then. 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 Patient reports that he got a moved from job to job with the [employer] company and then when he got her in April had to change jobs again. Patient currently working at [employer]. Patient reports that the company he works [...] home when stable Records Reviewed: Records in [facility] reviewed. Records in care everywhere reviewed. Consultations: [...] Shanta Barbosa MD at 10/26/2017 12:50 PM MULTIPLE DRILL OPERATOR IPLE DRILL OPERATOR IPLE DRILL OPERATOR documented in this encounter ED Notes * Sin Koroma RN - 10/25/2017 12:02 PM CST Pt eating food tray and cooperative. Denies needs at this time. Sleeping on sofa at this time. Respirations easy and unlabored. IPLE DRILL OPERATOR * Shant Comre Ed - 10/25/2017 11:00 AM CST Pt lives in [place] with his sister, and commutes to [place] for work at [employer]. 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 Pt states that he is proud of having 11 grandchildren and 6 great grandchildren. Pt states that he gets relief from depression by crying. He has been crying more frequently then normal for him. Pt reports difficulty with sleep. No difficulty with appetite. Pt states that everything he does turns out bad. He reports hopelessness and helplessness. Shant Comer, Psych Access IPLE DRILL OPERATOR * Mendy Barron, OPTICAL MODEL MAKER AND TESTER - 10/25/2017 9:22 AM CST Images from [...] the emergency room, thinks he went to [facility]. He reports ongoing problems with pain since his injury. He reports pain every day. He is currently working for [employer] and reports multiple frustrations against them. He reports that he has been seeing multiple doctors at [facility], in [place] and also at [facility]. He [...] A/G Ratio 1.3 1.1 - 2.3 EGFR Non-/French >60 >60 EGFR /French >60 >60 Ethanol Collection Time: 10/25/17 10:53 [...] NEG Ketones, UA NEG NEG mg/dL Specific Rupert 1.021 1.005 - 1.030 Blood NEG NEG [...] DET Opiates,UR POS (A) NOT DET Specific Rupert, UR 1.021 1.005 - 1.035 Imaging / [...] Patient progress: stable Other Assessments: ABCD2: N/A [id number]: N/A HAS-BLED: N/A Heart Score: N/A PAWSS: N/A PECARN: N/A PERC: N/A SBIRT: N/A WELLS: N/A NIH STROKE SCALE (last 24 hours) NIH Stroke Scale No documentation. Informed Consent for tPA: N/A Cosigned by Omkar Andre MD at 10/26/2017 6:18 AM MULTIPLE DRILL OPERATOR IPLE DRILL OPERATOR IPLE DRILL OPERATOR * George Howard RN - 10/25/2017 9:00 AM CST Pt sent over from [employer] for psych eval. Pt reports had an [...] Pt states he is currently working for [employer] in [place], but has a commute to work and has been falling asleep while driving due to medications. Pt reports feeling hopeless and worthless . I was doing so good and now, I am nothing . Pt denies suicidal ideations or homicidal ideations at this time. IPLE DRILL OPERATOR documented in this encounter Plan of Treatment Not on file documented as of this encounter Procedures Procedure Name Priority Date/Time Associated Diagnosis Comments URINALYSIS WITH REFLEX MICROSCOPIC TESTING STAT 10/25/2017 11:01 AM MULTIPLE DRILL OPERATOR RAPID DRUG SCREEN, URINE STAT 10/25/2017 11:01 AM MULTIPLE DRILL OPERATOR TRICYCLIC SERUM SCREEN STAT 7 10:53 AM MULTIPLE DRILL OPERATOR CBC AND DIFFERENTIAL STAT 10/25/2017 10:53 AM MULTIPLE DRILL OPERATOR TSH STAT 10/25/2017 10:53 AM MULTIPLE DRILL OPERATOR ETHANOL STAT 10/25/2017 10:53 AM MULTIPLE DRILL OPERATOR ACETAMINOPHEN LEVEL STAT 10/25/2017 1 0:53 AM MULTIPLE DRILL OPERATOR SALICYLATE LEVEL STAT 10/25/2017 10:5 3 AM MULTIPLE DRILL OPERATOR COMPREHENSIVE METABOLIC PANEL STAT 10/25/2017 10:53 AM MULTIPLE DRILL OPERATOR documented in this encounter Results * (ABNORMAL) Rapid drug screen, urine (10/25/2017 11:01 AM MULTIPLE DRILL OPERATOR) Amphetamines,UR NOT DET NOT DET [facility] Comment:(Cutoff is 1000 ng/m L) Barbiturates,UR NOT DET NOT DET [facility] Comment:(Cutoff is 200 ng/mL ) Benzodiazepines,UR NOT DET NOT DET [facility] Comment:(Cutoff is 200 ng/mL ) Cannabinoids,UR NOT DET NOT DET [facility] Comment:(Cutoff is 50 ng/mL) Cocaine,UR NOT DET NOT DET [facility] Comment:(Cutoff is 300 ng/mL ) Opiates,UR POS(A) NOT DET [facility] Comment:(Cutoff is 300 ng/mL ) Specific Rupert, UR 1.021 1.005 - 1.035 [facility] Comment: -- NTD stands for NOT [...] results have legal implications. Test Performed at [facility], [address] [place], [place]. URINE SPECIMEN FROM URINARY BLADDER / Unknown 10/25/2017 11:01 AM MULTIPLE DRILL OPERATOR 10/25/2017 11:05 AM MULTIPLE DRILL OPERATOR Mendy VAZQUEZ URINE ORDERABLES Final Result [facility] [address], [place], [place] [phone] * Urinalysis with Reflex Testing (10/25/2017 11:01 AM MULTIPLE DRILL OPERATOR) Specimen, UA CLN CATCH [facility] Color, UA STRAW STRAW UPH [facility] Clarity, UA CLEAR CLEAR [facility] Glucose, UA NEG NEG mg/dL [facility] Bilirubin, UA NEG NEG [facility] Ketones, UA NEG NEG mg/dL [facility] Specific Rupert, UA 1.021 1.005 - 1.030 [facility] Blood NEG [facility]G [facility] PH, UA 5.5 5.0 - 8.0 [facility] Protein, UA NEG NEG mg/dL [facility] Urobilinogen,U A 0.2 0.2 - 1.0 EU/dL [facility] Nitrite, UA NEG NEG [facility] Leukocyte Esterase, UA NEG NEG [facility] Comment NONE [facility] Comment:Test Performed at [facility], [address] [place], [place]. URINE SPECIMEN FROM URINARY BLADDER / Unknown 10/25/2017 11:01 AM MULTIPLE DRILL OPERATOR 10/25/2017 11:05 AM MULTIPLE DRILL OPERATOR Mendy Barron [facility] URINE ORDERABLES Final Result [facility] [address], [place], [place] [phone] * Tricyclic Serum Screen (10/25/2017 10:53 AM MULTIPLE DRILL OPERATOR) Tricyclics Serum Screen NEG NEG [facility] Comment:Test Performed at [facility], [address] [place], [place]. 10/25/2017 10:5 3 AM MULTIPLE DRILL OPERATOR 10/25/2017 10:54 AM MULTIPLE DRILL OPERATOR Mendy Barron [facility] BLOOD ORDERABLES Final Re sult [facility] [address], [place], [place] [phone] * (ABNORMAL) Salicylate level (10/25/2017 10:53 AM MULTIPLE DRILL OPERATOR) Salicylate Level <2(L) 2 - 10 mg/dL [facility] Comment:Test Performed at [facility], [address] [place]. 10/25/2017 10:5 3 AM MULTIPLE DRILL OPERATOR 10/25/2017 10:54 AM MULTIPLE DRILL OPERATOR Mendy Barron [facility] BLOOD ORDERABLES Final Re sult Performing Organization Address [facility] [address]/[facility] Co de Phone Number [facility] [address], [place], [place] [phone] * Ethanol (10/25/2017 10:53 AM MULTIPLE DRILL OPERATOR) Ethanol Level NEG NEG mg/dL [facility] Comment:Test Performed at [facility], [address] [place], [place]. 10/25/2017 10:5 3 AM MULTIPLE DRILL OPERATOR 10/25/2017 10:54 AM MULTIPLE DRILL OPERATOR Mendy Barron [facility] BLOOD ORDERABLES Final Re sult [facility] [address], [place], [place] [phone] * Comprehensive metabolic panel (10/25/2017 10:53 AM MULTIPLE DRILL OPERATOR) Sodium 139 136 - 145 mmol/L [facility] Potassium 3.8 3.5 - 5.0 mmol/L [facility] Chloride 105 95 - 110 mmol/L [facility] CO2 26 21 - 32 mmol/L [facility] Glucose 93 70 - 99 mg/dL [facility] BUN 13 7 - 23 mg/dL [facility] Creatinine 0.89 0.51 - 1.17 mg/dL [facility] Comment:The analysis was per formed using an isotope dilution mass spectrometry (IDMS) traceable methodology. Calcium 8.6 8.5 - 10.1 mg/dL [facility] Total Protein 7.2 6.4 - 8.2 g/dL [facility] Albumin 4.0 3.4 - 5.0 g/dL [facility] Bilirubin Total 0.6 0.2 - 1.0 mg/dL [facility] Alkaline Phosphatase 83 45 - 117 U/L [facility] AST 29 7 - 40 U/L [facility] ALT 43 0 - 65 U/L [facility] Anion Gap 8 2 - 18 mmol/L [facility] BUN/Creatinine Ratio 14.6 10.0 - 24.0 [facility] Osmolality Calculated 277 275 - 295 mosm/Kg [facility] Globulin 3.2 2.5 - 3.8 g/dL [facility] A/G Ratio 1.3 1.1 - 2.3 [facility] Creatinine Based eGFR >60 >60 [facility] Comment: GFR REFERENCE RANGE: >60 mL/min/1.73m2 -- An eGFR of > than, or = to 60, may indicate normal renal function or mildly decreased GFR. EGFR /French >60 >60 [facility] Comment: -- An eGFR of > than, or = to 60, may indicate normal renal function or mildly decreased GFR. Test Performed at [facility], [address], [place], [place]. 10/25/2017 10:5 3 AM MULTIPLE DRILL OPERATOR 10/25/2017 10:54 AM MULTIPLE DRILL OPERATOR Mendy [facility] BLOOD ORDERABLES Final Re sult [facility] [address], [place], [place] [phone] * (ABNORMAL) CBC and differential (10/25/2017 10:53 AM MULTIPLE DRILL OPERATOR) WBC 5.1 4.5 - 11.0 th/mm3 [facility] RBC 4.61 4.54 - 5.77 mill/mm3 [facility] HGB 15.0 14.0 - 17.7 g/dL [facility] HCT 41.1 40.0 - 52.0 % [facility] MCV 89.2 82.0 - 99.0 fL [facility] MCH 32.5(H) 27.0 - 32.0 pg [facility] MCHC 36.5(H) 32.0 - 36.0 g/dL [facility] Platelets 171 150 - 400 th/mm3 [facility] RDW-CV 39.3(L) 39.6 - 47.4 fL [facility] NRBC Absolute 0.00 0.00 th/mm3 [facility] Neutrophil % 44.9 35.0 - 65.0 % [facility] Neutrophils Absolute Count 2.31 1.30 - 6.00 th/mm3 [facility] Lymphocytes % 38.9 23.0 - 45.0 % [facility] Lymphocytes Absolute 2.00 1.50 - 3.50 th/mm3 [facility] Monocyte % 11.9(H) 0.0 - 10.0 % [facility] Monos Absolute 0.61 <1.0 th/mm3 [facility] Eosinophils Relative % 3.7(H) 1.0 - 3.0 % [facility] Eosinophils Absolute Count 0.19 <0.7 th/mm3 [facility] Basophils % 0.4 0.0 - 1.0 % [facility] Basophils Absolute 0.02 <0.1 th/mm3 [facility] Immature Granulocytes% 0.2 0.0 - 1.0 % [facility] Immature Granulocytes Absolute 0.01 th/mm3 [facility] Comment:Test Performed at [facility], [address] [place], [place]. 10/25/2017 10:5 3 AM MULTIPLE DRILL OPERATOR 10/25/2017 10:54 AM MULTIPLE DRILL OPERATOR Mendy Barron [facility] BLOOD ORDERABLES Final Re sult Performing Organization Address City/[facility] [address] [facility] Co de Phone Number [facility] [address], [place], [place] [phone] * TSH (10/25/2017 10:53 AM MULTIPLE DRILL OPERATOR) [facility] TSH 1.48 0.36 - 3.74 uIU/mL [facility] Comment:Test Performed at [facility], [address] [place], [place]. 10/25/2017 10:5 3 AM MULTIPLE DRILL OPERATOR 10/25/2017 10:54 AM MULTIPLE DRILL OPERATOR Mendy Barron [facility] BLOOD ORDERABLES Final Re sult [facility] [address], [place], [place] [phone] * (ABNORMAL) Acetaminophen level (10/25/2017 10:53 AM MULTIPLE DRILL OPERATOR) Pathologist [facility] Acetaminophen Level <2.0(L) 10.0 - 20.0 mcg/mL [facility] Comment:Test Performed at [facility], [address], [place], [place]. 10/25/2017 10:5 3 AM MULTIPLE DRILL OPERATOR 10/25/2017 10:54 AM MULTIPLE DRILL OPERATOR us Mendy Barron [facility] BLOOD ORDERABLES Final Re sult [facility] [address], [place], [place] [phone] documented in this encounter Visit Diagnoses Diagnosis [...] & IS SCHEDULED WITH MICHELA BAUTISTA @ [facility] ON 11-16-17 @ 11:00. TRANSPORTATION: PATIENT TRANSPORTED HOME BY HIS . HE WAS DISCHARGED @ 1:10. DATE [facility] FUNDING APPLICATION FAXED: N/A COMMITTAL STATUS/TRANSFERRED: N/A EDUCATION PROVIDED RE: DISCHARGE PLAN EDUCATION RECIPIENT: PATIENT MODE OF EDUCATION: X Teach Back-1:1 _ Handouts _ Other RESPONSE TO EDUCATION: X Able to understand education _ Partial understanding of education _ Unable to understand education _ Refuses education ADDITIONAL INFORMATION: FAXED DISCHARGE INSTRUCTIONS TO STEPHANIE. NO OTHER SOCIAL SERVICE INTERVENTION. NABILA Cartagena IPLE DRILL OPERATOR * Plan of Care - Leonard Vivas RN - 10/29/2017 11:15 AM CST Problem: Violence, Self/Other-Directed, Risk of Goal: LTG: Will demonstrate adherence with treatment plan Outcome: Progressing Problem: Suicide - Risk of Goal: Absence of self-harm Outcome: Progressing IPLE DRILL OPERATOR * Plan of Care - Eri De Leon RN - 10/28/2017 11:36 PM CST Problem: Violence, Self/Other-Directed, Risk of Goal: LTG: Will demonstrate adherence with treatment plan Outcome: Progressing Problem: Suicide - Risk of Goal: Absence of self-harm Outcome: Progressing IPLE DRILL OPERATOR * Plan of Care - Loenard Vivas RN - 10/28/2017 9:52 AM CST Problem: Violence, Self/Other-Directed, Risk of Goal: LTG: Will demonstrate adherence with treatment plan Outcome: Progressing Problem: Suicide - Risk of Goal: Absence of self-harm Outcome: Progressing IPLE DRILL OPERATOR * Plan of Care - Dia Stallings RN - 10/27/2017 9:55 PM CST Problem: Violence, Self/Other-Directed, Risk of Goal: LTG: Will demonstrate adherence with treatment plan Outcome: Progressing Goal: STG: Absence of harm to self or others Outcome: Progressing Problem: Suicide - Risk of Goal: Absence of self-harm Outcome: Progressing IPLE DRILL OPERATOR * Plan of Care - Lesley White RN - 10/27/2017 9:38 AM CST Problem: Violence, Self/Other-Directed, Risk of Goal: LTG: Will demonstrate adherence with treatment plan Outcome: Progressing IPLE DRILL OPERATOR * Plan of Brendan - Dia Stallings RN - 10/26/2017 8:47 PM CST Problem: Violence, Self/Other-Directed, Risk of Goal: LTG: Will demonstrate adherence with treatment plan Outcome: Progressing Problem: Thought Process - Altered Goal: LTG: Will demonstrate an increased ability to make appropriate decisions when planning with nurse Outcome: Progressing Problem: Suicide - Risk of Goal: Absence of self-harm Outcome: Progressing IPLE DRILL OPERATOR * Plan of Care - Lesley White RN - 10/26/2017 10:19 AM CST Problem: Suicide - Risk of Goal: Absence of self-harm Outcome: Progressing IPLE DRILL OPERATOR * Plan of Care - Penny Barbosa RN - 10/25/2017 10:11 PM CST Problem: Violence, Self/Other-Directed, Risk of Goal: LTG: Will demonstrate alternative ways of dealing with negative feelings and emotional stress Outcome: Progressing Problem: Suicide - Risk of Goal: Absence of self-harm Outcome: Progressing IPLE DRILL OPERATOR documented in this encounter Administered Medications Inactive [...] For 60 days Given 10/28/2017 8:36 PM MULTIPLE DRILL OPERATOR 75 mg Given 10/27/2017 8:03 PM MULTIPLE DRILL OPERATOR 75 mg Given 10/26/2017 8:40 PM MULTIPLE DRILL OPERATOR 75 mg baclofen (LIORESAL) tablet 10 mg, Oral, NIGHTLY, First dose on Wed10/25/17 at 2100, For 60 days Given 10/28/2017 8:36 PM MULTIPLE DRILL OPERATOR 10 mg Given 10/27/2017 8:03 PM MULTIPLE DRILL OPERATOR 10 mg Given 10/26/2017 8:40 PM MULTIPLE DRILL OPERATOR 10 mg capsaicin (ZOSTRIX) 0.025 % cream [...] For 60 days Given 10/26/2017 8:23 AM MULTIPLE DRILL OPERATOR 30 mg Given 10/25/2017 8:13 PM MULTIPLE DRILL OPERATOR 30 mg DULoxetine (CYMBALTA) DR capsule 60 mg, Oral, EVERY MORNING, First dose on Wed10/27/17 at 0800, For 60 days Given 10/29/2017 8:16 AM MULTIPLE DRILL OPERATOR 60 mg Given 10/28/2017 8:50 AM MULTIPLE DRILL OPERATOR 60 mg Given 10/27/2017 8:18 AM MULTIPLE DRILL OPERATOR 60 mg DULoxetine (CYMBALTA) DR capsule 30 mg, Oral, NIGHTLY, First dose (after last modification) on Wed10/26/17 at 1900, For 30 days Given 10/28/2017 6:47 PM MULTIPLE DRILL OPERATOR 30 mg Given 10/27/2017 8:03 PM MULTIPLE DRILL OPERATOR 30 mg Given 10/26/2017 6:26 PM MULTIPLE DRILL OPERATOR 30 mg DULoxetine (CYMBALTA) DR capsule 60 [...] AM CS T Given 10/28/2017 8:40 PM MULTIPLE DRILL OPERATOR Given 10/28/2017 8:51 AM MULTIPLE DRILL OPERATOR oxyCODONE (ROXICODONE) immediate release tablet 5 mg, Oral, EVERY 4 HOURS PRN, Moderate Pain , Starting on Wed10/25/17 at 1600, For 60 days Given 10/29/2017 11: 19 AM MULTIPLE DRILL OPERATOR 5 mg Given 10/27/2017 3:19 PM MULTIPLE DRILL OPERATOR 5 mg Given 10/26/2017 12:14 PM MULTIPLE DRILL OPERATOR 5 mg oxyCODONE HCl ER (OXYCONTIN) 12 hr tablet 15 mg, Oral, EVERY 12 HOURS SCHEDULED (2 times per day), First dose on Wed10/25/17 at 2100, For 60 days, Do not crush or chew. Given 10/29/2017 8:16 AM MULTIPLE DRILL OPERATOR 15 mg Given 10/28/2017 8:36 PM MULTIPLE DRILL OPERATOR 15 mg Given 10/28/2017 8:50 AM MULTIPLE DRILL OPERATOR 15 mg oxyCODONE-acetaminophen (PERCOCET) 5-325 MG per tablet 1 tablet, Oral, EVERY 4 HOURS PRN, Moderate Pain , Starting on Wed10/25/17 at 1601, For 60 days, Maximum dose of acetaminophen is 4000 mg from all sources in 24 hours. Given 10/28/2017 1:42 PM MULTIPLE DRILL OPERATOR 1 t ablet Given 10/27/2017 8:18 AM MULTIPLE DRILL OPERATOR 1 tablet Given 10/26/2017 8:34 AM MULTIPLE DRILL OPERATOR 1 tablet propranolol (INDERAL LA) 24 hr capsule 60 mg, Oral, DAILY, First dose on Wed10/26/17 at 0800, For 60 days, Do not crush or break. Patient must swallow this med whole. Given 10/29/2017 8:16 AM MULTIPLE DRILL OPERATOR 60 mg Given 10/28/2017 8:50 AM MULTIPLE DRILL OPERATOR 60 mg Given 10/27/2017 8:18 AM MULTIPLE DRILL OPERATOR 60 mg documented in this encounter Active and Recently Administered Medications Times are shown in MULTIPLE DRILL OPERATOR. Scheduled Medication Order 10/27/2017 10/28/2017 10/29/2017 amitriptyline [...] Dia Stallings RN) 0850 (Given - Provider: Leonard Vivas, SUSANA)2035 (Given - Provider: Eri De [...] hours. documented in this encounter Care Teams Head Bellhop Captain Relationship Specialty Start Date End Date Stephanie Leos PA-C [address] [place] [address] PCP - General Physician Operations And Maintenance Technician 10/25/17 11/24/18 documented as of this encounter
--- OUTSIDE RECORDS SUMMARY | 2024-11-23 10:21 | XMS_ITS | Encounter Summary ---
Author Organization [employer] Address [address] [place] [address] Care Team Providers Care Commission Clerk Name Role Phone Patient, None Per Primary Care Provider Unavaila ble Encounter Details Date Type Department Care Team (Latest Contact Info) Description 08/17/2017 10:58 AM CDT - 08/17/2017 11:59 PM CDT Hospital Encounter [facility] [address] [place] [address] Eden Anthony, MANAGER OF CASE [address] [place], [place] [phone] Discharge Disposition: Home - Discharge to Home or Self Care Social History Tobacco Use Types Packs/Day Years Used Date Smoking Tobacco: Never Assessed Sex and Gender Information Value Date Recorded Sex Assigned at Not on file Legal Sex Male 10:58 AM CDT Gender Identity Not on file Sexual Orientation Not on file documented as of this encounter Nursing Notes * Eden Anthony MANAGER OF CASE - 08/17/2017 3:09 PM CDT 08/17/17 1119 [...] on filedocumented in this encounter Care Teams Commission Clerk Relationship Specialty Start Date End Date Patient, None Per PCP - General 08/04/17 10/24/17 documented as of this encounter
--- OUTSIDE RECORDS SUMMARY | 2024-11-23 10:21 | XMS_ITS | Encounter Summary ---
Author Organization [employer] Address [address] [place] [address] Care Team Providers Care Park Warden Name Role Phone Kiley Todd MD Primary Care Provider [phone] Encounter Details Date Type Department Care Team (Latest Contact Info) Description 07/16/2017 10:22 AM CDT - 07/16/2017 11:59 PM CDT Hospital Encounter [facility] [address] [place] [phone] Enrrique Bragg, PT [address] [place], [place] [phone] Discharge Disposition: Home - Discharge to Home [...] on filedocumented in this encounter Care Teams Park Warden Relationship Specialty Start Date End Date Kiley Todd MD [address] [place] [address] PCP - General Occupational Medicine 05/19/17 08/03/17 documented as of this encounter
--- OUTSIDE RECORDS SUMMARY | 2024-11-23 10:21 | XMS_ITS | Encounter Summary ---
Author Organization [employer] Address [address] [place] [address] Care Team Providers Care Software Support Specialist Name Role Phone Patient, None Per Primary Care Provider Unavaila ble Encounter Details Date Type Department Care Team (Latest Contact Info) Description 08/19/2017 9:03 AM CDT - 08/19/2017 11:59 PM CDT Hospital Encounter [facility] [address] [place], [place] [phone] Verónica Dominguez, PT [address] [place], [place] [phone] Discharge Disposition: Home - Discharge to Home [...] Dominguez, PT - 09/30/2017 9:08 AM CST [facility] Physical Therapy Discharge for Outpatient Rehabilitation Patient [...] IMbalance Physician Follow up dates (09/15/17 @ [facility]) Subjective Patient Statement In a lot of pain today. saw [facility] the other day. Some doctor wants him to transfer his care somewhere else but he doesnt want to. Contacted a ore puncher. Has an appt on the of this month at [facility]. Legs are burning, on the left side [...] Verónica Dominguez, PT Date: 09/30/2017 9:08 AM [facility] [address] [place] [address] GRADER documented in this encounter Nursing Notes * Verónica Dominguez, PT - 08/19/2017 2:12 PM CDT 08/19/17 0949 General OP therapy treatment number [address] Todd Insurance Reported Falls no HEP compliant Physician Follow up dates (09/15/17 @ [facility]) Subjective Patient Statement In a lot of pain today. saw [facility] the other day. Some doctor wants him to transfer his care somewhere else but he doesnt want to. Contacted a ore puncher. Has an appt on the of this month at [facility] office. Legs are burning, on the left [...] filedocumented in this encounter Care Teams Software Support Specialist Relationship Specialty Start Date End Date Patient, None Per PCP - General 08/04/17 10/24/17 documented as of this encounter
--- OUTSIDE RECORDS SUMMARY | 2024-11-23 10:21 | XMS_ITS | Encounter Summary ---
Author Organization [employer] Address [address] [place] [address] Care Team Providers Care Repair Department Manager Name Role Phone Coco Leos PA-C Primary Care Provider [phone] Denny Dey DO Unavailable Lacey Perdue MD Unavailable [phone] Reason for Visit * Reason Onset Date Comments Medication Management 08/02/2018 Encounter Details Date Type Department Care Team (Late st Contact Info) Description 08/02/[address] [address] Yael Sim, [facility] 14[address] [facility] [address] [place] [address] Medication Management Social History Tobacco [...] of Assessment Author No 10/25/2017 2:00 PM CARDIOPULMONARY TECHNOLOGIST Galvan, Am y S, HYDRAULIC TESTER * Do you have serious difficulty walking or climbing stairs? (5 years old or older) Answer Date of Assessment Author No 10/25/2017 2:00 PM JOHN Galvan Am y S, HYDRAULIC TESTER * Do you have difficulty dressing or bathing? (5 years old or older) Answer Date of Assessment Author No 10/25/2017 2:00 PM CARDIOPULMONARY TECHNOLOGIST Cole Am y S, HYDRAULIC TESTER * Because of a physical, mental, or emotional condition, do you have difficulty doing errands alone such as visiting a doctor's office or shopping? (15 years old or older) Answer Date of Assessment Author No 10/25/2017 2:00 PM CARDIOPULMONARY TECHNOLOGIST Cole Am y S, HYDRAULIC TESTER documented as of this encounter Mental Status * Because of a physical, mental, or emotional condition, do you have serious difficulty concentrating, remembering, or making decisions? (5 years old or older) Answer Entry Date Author No 10/25/2017 2:00 PM Deonna Padilla S, HYDRAULIC TESTER documented in this encounter Miscellaneous Notes * [...] filedocumented in this encounter Care Teams Repair Department Manager Relationship Specialty Start Date End Date Coco Leos PA-C [address] [place] [address] PCP - General Physician Help Desk Associate 10/25/17 11/24/18 Denny Dey DO [address] [place] [address] Referring Physician Orthopedic Surgery 06/28/18 9 Lacey Perdue MD [address] [phone] Referring Physician Infectious Diseases 06/28/18 documented as of this encounter
--- OUTSIDE RECORDS SUMMARY | 2024-11-23 10:21 | XMS_ITS | Encounter Summary ---
Author Organization [employer] Address [address] [place] [address] Care Team Providers Care Hematology Technologist Name Role Phone Coco Leos PA-C Primary Care Provider [phone] Denny Dey DO Unavailable [phone] Lacey Perdue MD Unavailable [phone] Reason for Visit * Reason Comments Medication Refill Encounter Details Date Type Department Care Team (Late st Contact Info) Description 07/11/2018 9:30 AM CDT Office Visit [address] [phone] Leonard Jasso, APPEALS SPECIALIST [address] [place], [place] [phone] Chronic back pain greater than 3 months [...] Author No 10/25/2017 2:00 PM Deonna Padilla, PEOPLESOFT FUNCTIONAL ANALYST * Are you blind or do you have serious difficulty seeing, even when wearing glasses? Answer Date of Assessment Author No 10/25/2017 2:00 PM Deonna Padilla S, PEOPLESOFT FUNCTIONAL ANALYST * Do you have serious difficulty walking or climbing stairs? (5 years old or older) Answer Date of Assessment Author No 10/25/2017 2:00 PM Deonna Padilla, PEOPLESOFT FUNCTIONAL ANALYST * Do you have difficulty dressing or bathing? (5 years old or older) Answer Date of Assessment Author No 10/25/2017 2:00 PM Deonna Padilla, PEOPLESOFT FUNCTIONAL ANALYST * Because of a physical, mental, or emotional condition, do you have difficulty doing errands alone such as visiting a doctor's office or shopping? (15 years old or older) Answer Date of Assessment Author No 10/25/2017 2:00 PM Deonna Padilla, PEOPLESOFT FUNCTIONAL ANALYST documented as of this encounter Mental Status * Because of a physical, mental, or emotional condition, do you have serious difficulty concentrating, remembering, or making decisions? (5 years old or older) Answer Entry Date Author No 10/25/2017 2:00 PM Deonna Padilla PEOPLESOFT FUNCTIONAL ANALYST documented in this encounter Patient Instructions [...] are negative. Objective: BP 124/70 (BP Location: [facility], BP Position: sitting, BP Cuff Size: Reg) [...] Urine Drug Screen (07/11/2018 10:05 AM CDT) [facility] Cannabinoids,UR NEG NEG [facility] Comment:(Cutoff is 50 ng/mL) Cocaine,UR NEG NEG [email or web address] Comment:(Cutoff is 150 ng/mL ) Opiates,UR POS(A) NEG [email or web address] Comment:(Cutoff is 100 ng/mL ) Amphetamines,UR NEG NEG [facility] Comment:(Cut off is 500 ng/m l) Phencyclidine,UR NEG NEG [facility] Comment:(Cutoff is 25 ng/mL) Tricyclics UR POS(A) NEG [facility] Comment:(Cut off is 200 ng/m L) Barbiturates,UR NEG NEG [facility] Comment:(Cutoff is 200 ng/mL ) Methadone Screen NEG NEG [facility] Comment:(Cutoff is 200 ng/mL ) Benzodiazepines,UR NEG NEG [facility] Comment:(Cutoff is 150 ng/mL ) Oxycodone Screen,UR POS(A) NEG [facility] Comment:(Cutoff is 100 ng/mL ) Propoxyphene,UR NEG NEG [email or web address] Comment:(Cut off is 200 ng/m L) Buprenorphine UR [facility]G [facility]G [facility] Comment:(Cutoff is 10 ng/mL) Methamphetamine NEG NEG [email or web address] Comment: (Cut off is 500 ng/ml) ---- URINE TOXICOLOGY RESULTS ARE UNCONFIRMED, QUALITATIVE RESULTS ??FOR MEDICAL PURPOSES ONLY. Urine specimen (specimen) 07/11/2018 10:05 AM CDT 07/11/2018 1:19 PM CDT us Leonard Jasso APRN URINE ORDERABLES Veronica alexandre Result [facility] [address] [place], [place] [phone] documented in this encounter Visit Diagnoses Diagnosis Chronic back pain greater than 3 months duration- Primary Backache, unspecified Lumbar radiculopathy, chronic Thoracic or lumbosacral neuritis or radiculitis, unspecified Primary osteoarthritis involving multiple joints History of colon polyps Personal history of colonic polyps documented in this encounter Care Teams Hematology Technologist Relationship Specialty Start Date End Date Coco Leos PA-C [address] [place] [address] PCP - General Physician Database Administration Associate 10/25/17 11/24/18 Denny Dey DO [address] [place] [address] Referring Physician Orthopedic Surgery 06/28/18 9 Lacey Perdue MD [address] [phone] Referring Physician Infectious Diseases 06/28/18 documented as of this encounter
--- OUTSIDE RECORDS SUMMARY | 2024-11-23 10:21 | XMS_ITS | Encounter Summary ---
Author Organization [employer] Address [address] [place] [address] Care Team Providers Care Ore Digger Name Role Phone Kiley Todd MD Primary Care Provider [phone] Encounter Details Date Type Department Care Team (Latest Contact Info) Description 06/28/2017 9:32 AM CDT - 06/28/2017 11:59 PM CDT Hospital Encounter [facility] [address] [place], [place] [phone] Verónica Dominguez, PT [address] [place], [place] [phone] Discharge Disposition: Home - Discharge to Home [...] therapy for his back. Goes back to [facility] on after hsi MRI On . Dizziness [...] on filedocumented in this encounter Care Teams Ore Digger Relationship Specialty Start Date End Date Kiley Todd MD [address] [place] [address] PCP - General Occupational Medicine 05/19/17 08/03/17 documented as of this encounter
--- OUTSIDE RECORDS SUMMARY | 2024-11-23 10:21 | XMS_ITS | Encounter Summary ---
Author Organization [employer] Address [address] [place] [address] Care Team Providers Care Revenue Settlements Administrator Name Role Phone Kiley Todd MD Primary Care Provider [phone] Encounter Details Date Type Department Care Team (Latest Contact Info) Description 07/05/2017 1:35 PM CDT - 07/05/2017 11:59 PM CDT Hospital Encounter [facility] [address] [place] [phone] Enrrique Bragg, PT [address] [place] [address] Discharge Disposition: Home - Discharge [...] out of bed. Drove 2 hours to [place] but doesn't think that played much of [...] on filedocumented in this encounter Care Teams Revenue Settlements Administrator Relationship Specialty Start Date End Date Kiley Todd MD [address] [place] [address] PCP - General Occupational Medicine 05/19/17 08/03/17 documented as of this encounter
--- OUTSIDE RECORDS SUMMARY | 2024-11-23 10:21 | XMS_ITS | Encounter Summary ---
Author Organization [employer] Address [address] [place] [address] Care Team Providers Care Plush Finisher Name Role Phone Kiley Todd MD Primary Care Provider [phone] Encounter Details Date Type Department Care Team (Latest Contact Info) Description 07/02/2017 8:56 AM CDT - 07/02/2017 11:59 PM CDT Hospital Encounter [facility] [address] [place] [phone] Enrrique Bragg, PT [address] [place] [address] Discharge Disposition: Home - Discharge [...] for pain control. Pt verbalized travelling to [place] this weekend, instructed pt to take breaks [...] on filedocumented in this encounter Care Teams Plush Finisher Relationship Specialty Start Date End Date Kiley Todd MD [address] [place] [address] PCP - General Occupational Medicine 05/19/17 08/03/17 documented as of this encounter
--- OUTSIDE RECORDS SUMMARY | 2024-11-23 10:21 | XMS_ITS | Encounter Summary ---
Author Organization [employer] Address [address] [place] [address] Care Team Providers Care Farm Equipment Technician Name Role Phone Coco Leos PA-C Primary Care Provider [phone] Denny eDy DO Unavailable [phone] Lacey Perdue MD Unavailable [phone] Reason for Referral * Referral (Routine) - Closed Specialty Diagnoses / Procedures Referred By Celine almaguer Referred To Contact Internal Medicine Diagnoses Cellulitis of right lower extremity Wound of right lower extremity, subsequent encounter Leonard Jasso APRN [address] [place] [address] Phone: tel: fax: [address] [address] Phone: tel: fax: Referral ID Status Reason Start Date Expiration Date V isits Requested Visits Authorized [id number] Closed Specialty Services Required 06/24/2018 06/24/2019 1 1 Reason for Visit * Reason Comments Establish Care Encounter Details Date Type Department Care Team (Late st Contact Info) Description 06/24/2018 2:15 PM CDT Office Visit [address] [address] Melody Jassoony W, WILDLIFE BIOLOGY TECHNICIAN [address] [place] [address] Cellulitis of right lower extremity (Primary Dx); [...] this encounter Patient Instructions * Patient Instructions* Leonadr Jasso APNP - 06/24/2018 2:15 PM CDT [...] being treated for cellulitis by physicians in [place]. Pt. Has PICC and wound vac in place. Pt states he is seeking a new PCP due to he is living in [place] and cannot keep driving that farto see [...] hypertension documented in this encounter Care Teams Farm Equipment Technician Relationship Specialty Start Date End Date Coco Leos PA-C [address] [place] [address] PCP - General Physician Incident Coordinator 10/25/17 11/24/18 Denny Dey DO [address] [place] [address] Referring Physician Orthopedic Surgery 06/28/18 9 Lacey Perdue MD [address] [phone] Referring Physician Infectious Diseases 06/28/18 documented as of this encounter
--- OUTSIDE RECORDS SUMMARY | 2024-11-23 10:21 | XMS_ITS | Encounter Summary ---
Author Organization [employer] Address [address] [place] [address] Care Team Providers Care Bridge Attacher Name Role Phone Patient, None Per Primary Care Provider Unavaila ble Encounter Details Date Type Department Care Team (Latest Contact Info) Description 08/12/2017 9:54 AM CDT - 08/12/2017 11:59 PM CDT Hospital Encounter [facility] [address] [place] [address] Enrrique Bragg, PT [address] [place] [address] Discharge Disposition: Home - Discharge to Home [...] Kiley Todd MD [address] [place] [address] Onset date: 04/16/17 Start of Care: 08/06/17 [...] Enrrique Bragg, PT, DPT 09/06/2017 3:14 PM [facility] [address] [place] [address] documented in this encounter Nursing Notes * [...] on filedocumented in this encounter Care Teams Bridge Attacher Relationship Specialty Start Date End Date Patient, None Per PCP - General 08/04/17 10/24/17 documented as of this encounter
--- OUTSIDE RECORDS SUMMARY | 2024-11-23 10:21 | XMS_ITS | Encounter Summary ---
Author Organization [employer] Address [address] [place] [address] Care Team Providers Care Music Researcher Name Role Phone Coco Leos PA-C Primary Care Provider [phone] Denny Dey DO Unavailable [phone] Lacey Perdue MD Unavailable Encounter Details Date Type Department Care Team (Latest Contact Info) Description 07/01/2018 12:45 PM CDT - 07/01/2018 11:59 PM CDT Hospital Encounter [facility] [address] [place] [address] Urinary tract infection, site not specified; Encounter [...] Author No 10/25/2017 2:00 PM Deonna Padilla, SLAG PRODUCTION WORKER * Are you blind or do [...] Sedimentation Rate 5 0 - 20 mm/hr [facility] Pongr [facility] Blood specimen (specimen) 07/01/2018 12:45 PM CDT 07/01/2018 3:36 PM CDT us Lacey Perdue MD LAB BLOOD ORDERABLES Final R esult [facility] [address] [place], [place] [phone] * (ABNORMAL) Comprehensive metabolic panel (07/01/2018 12:45 PM CDT) Sodium 140 136 - 145 mmol/L [facility] trgt.usQUEST LAB Potassium 3.8 3.5 - 5.1 mmol/L [facility] [employer] [facility] Chloride 105 98 - 107 mmol/L [facility] trgt.usQUEST LAB CO2 28 21 - 32 mmol/L [facility] trgt.usQUEST LAB Glucose 114(H) 74 - 106 mg/dL [facility] [employer] [facility] BUN 11 7.0 - 18.0 mg/dL [facility] trgt.usQUEST LAB Creatinine 0.95 0.70 - 1.30 mg/dL [facility] trgt.usQUEST LAB Calcium 8.9 8.5 - 10.1 mg/dL [facility] Xango.comQUEST LAB Total Protein 7.1 6.4 - 8.2 g/dL [facility] trgt.usQUEST LAB Albumin 3.6 3.4 - 5.0 g/dL [facility] CallvineMass FidelityQUEST LAB Bilirubin Total 0.2 0.2 - 1.0 mg/dL [facility] [employer] [facility] Alkaline Phosphatase 98 56 - 119 U/L [facility] trgt.usQUEST LAB AST 31 15 - 37 U/L [facility] trgt.usQUEST LAB ALT 24 12 - 78 U/L [facility]ENCOM[facility] Xango.comQUEST LAB Creatinine Based eGFR >60 [facility] trgt.usQUEST LAB Comment: GFR REFERENCE RANGE: >60 mL/min/1.73m2 -- An eGFR of > than, or = to 60, may indicate normal renal function or mildly decreased GFR. EGFR /Indonesian >60 [facility] trgt.usQUEST LAB Comment: -- An eGFR of > than, or = to 60, may indicate normal renal function or mildly decreased GFR. Blood specimen (specimen) 07/01/2018 12:45 PM CDT 07/01/2018 3:36 PM CDT Lacey Perdue MD LAB BLOOD ORDERABLES Final R esult [facility] CallvineHAGE [facility] [address] [place], [place] [phone] * CBC and differential (07/01/2018 12:45 PM CDT) WBC 5.94 4.00 - 11.00 th/mm3 [facility] RBC 4.63 4.50 - 6.50 mill/mm3 [facility] HGB 14.0 13.8 - 18.0 g/dL [facility] HCT 42.2 40.0 - 54.0 % [facility] MCV 91.1 76 - [address] [facility] MCH 30.2 27.0 - 32.[address] [facility] MCHC 33.2 30.0 - 35.0 g/dL [facility] Platelets 207 135 - 470 th/mm3 [facility] RDW-CV 43.0 34.9 - 51.[address] [facility] MPV 10.0 8.0 - 12.[address] [facility] Differential Type AUTOMATED DIFFERENTIAL [facility] Neutrophil % 53.1 45.0 - 75.0 % [facility] Lymphocytes % 34.3 20.0 - 45.0 % [facility] Monocyte % 9.3 0.0 - 10.0 % [facility] Eosinophils Relative % 2.9 0.0 - 5.0 % [facility] Basophils % 0.2 0.0 - 2.0 % [facility] Immature Granulocytes% 0.2 0.0 - 1.6 % [facility] Neutrophils Absolute 3.16 2.00 - 7.900 th/mm3 [facility] Lymphocytes Absolute 2.04 1.00 - 4.00 th/mm3 [facility] Monos Absolute 0.55 0.0 - 0.80 th/mm3 [facility] Eosinophils Absolute Count 0.17 0.00 - 0.40 th/mm3 [facility] Basophils Absolute 0.01 0.00 - 0.10 th/mm3 [facility] Immature Granulocytes Absolute 0.01 0.0 - 0.20 th/mm3 [facility] Blood specimen (specimen) BLOOD SPECIMEN / Unknown 07/01/2018 12:45 PM CDT 07/01/2018 3:36 PM CDT Lacey Perdue MD LAB BLOOD ORDERABLES Final R esult [facility] CallvineBloompop [facility] [address] [place], [place] [phone] documented in this encounter Visit Diagnoses Diagnosis Urinary tract infection, site not specified Encounter for long-term (current) use of antibiotics Cellulitis of right foot Cellulitis and abscess of foot, except toes documented in this encounter Care Teams Music Researcher Relationship Specialty Start Date End Date Coco Leos PA-C [address] [place] [address] PCP - General Physician Adult Literacy Teacher 10/25/17 11/24/18 Denny Dey DO [address] [place] [address] Referring Physician Orthopedic Surgery 06/28/18 9 Lacey Perdue MD [address] [place] [phone] Referring Physician Infectious Diseases 06/28/18 documented as of this encounter
--- OUTSIDE RECORDS SUMMARY | 2024-11-23 10:21 | XMS_ITS | Encounter Summary ---
Author Organization [employer] Address [address] [place] [address] Care Team Providers Care Product Development Engineer Name Role Phone Coco Leos PA-C Primary Care Provider [phone] Encounter Details Date Type Department Care Team (Latest Contact Info) Description 06/24/2018 1:00 PM CDT - 06/24/2018 11:59 PM CDT Hospital Encounter [facility] [address] [place] [phone] Cellulitis of right foot; Encounter for long-term [...] Sedimentation Rate 46(H) 0 - 20 mm/hr [facility] [place] [facility] Blood specimen (specimen) 06/24/2018 1:00 PM CDT 06/24/2018 2:26 PM CDT us Lacey Perdue MD LAB BLOOD ORDERABLES Final R esult [facility] [place] [facility] [address] [place], [place] [phone] * C-reactive protein (06/24/2018 1:00 PM CDT) CRP 0.80 0.2 - 0.9 mg/dL [facility] [place] MinekeyQUEST [facility] Blood specimen (specimen) 06/24/2018 1:00 PM CDT 06/24/2018 2:26 PM CDT us Lacey Perdue MD LAB BLOOD ORDERABLES Final R esult [facility] [place] [employer] [facility] [address] [place], [place] [phone] * (ABNORMAL) Comprehensive metabolic panel (06/24/2018 1:00 PM CDT) Sodium 138 136 - 145 mmol/L [facility] [place] [employer] [facility] Potassium 3.8 3.5 - 5.1 mmol/L [facility] [place] [employer]HAC[employer] [facility] Chloride 103 98 - 107 mmol/L [facility] [place] [employer] [facility] CO2 28 21 - 32 mmol/L [facility] [place] [employer] [facility] Glucose 162(H) 74 - 106 mg/dL [facility] [place] [employer] [facility] BUN 12 7.0 - 18.0 mg/dL [facility] [place] [employer] [facility] Creatinine 0.97 0.70 - 1.30 mg/dL [facility] [place] [employer] [facility] Calcium 8.7 8.5 - 10.1 mg/dL [facility] [place] CARTHAC[employer] [facility] Total Protein 7.1 6.4 - 8.2 g/dL [facility] [place] [employer] [facility] Albumin 3.6 3.4 - 5.0 g/dL [facility] [place] [employer] [facility] Bilirubin Total 0.4 0.2 - 1.0 mg/dL [facility] [place] [employer] [facility] Alkaline Phosphatase 96 56 - 119 U/L [facility] [place] [employer] [facility] AST 22 15 - 37 U/L [facility] [place] [employer] [facility] ALT 17 12 - 78 U/L [facility] [place] [employer] [facility] Creatinine Based eGFR >[address] [facility] [place] [facility] Comment: GFR REFERENCE RANGE: >60 mL/min/1.73m2 -- An eGFR of > than, or = to 60, may indicate normal renal function or mildly decreased GFR. EGFR /Ukrainian >60 [facility] Comment: -- An eGFR of > than, or = to 60, may indicate normal renal function or mildly decreased GFR. Blood specimen (specimen) 06/24/2018 1:00 PM CDT 06/24/2018 2:26 PM CDT us Lacey Perdue MD LAB BLOOD ORDERABLES Final R esult [facility] [place] [employer] [facility] [address] [place], [place] [phone] * CBC and differential (06/24/2018 1:00 PM CDT) WBC 6.72 4.00 - 11.00 th/mm3 [facility] [place] [facility] RBC 4.58 4.50 - 6.50 mill/mm3 [facility] [place] [facility] HGB 13.8 13.8 - 18.0 g/dL [facility] [place] [facility] HCT 40.9 40.0 - 54.0 % [facility] [place] [facility] MCV 89.3 76 - [address] [facility] [place] [facility] MCH 30.1 27.0 - 32.[address] [facility] [place] [facility] MCHC 33.7 30.0 - 35.0 g/dL [facility] [place] [facility] Platelets 227 135 - 470 th/mm3 [facility] CARTToptalGE [facility] RDW-CV 40.2 34.9 - 51.[address] [facility] [place] [facility] MPV 10.2 8.0 - 12.[address] [facility] [place] [employer] [facility] Differential Type AUTOMATED DIFFERENTIAL [facility] [place] [employer] [facility] Neutrophil % 58.1 45.0 - 75.0 % [facility] [place] [facility] Lymphocytes % 31.8 20.0 - 45.0 % [facility] [place] CARTGE [facility] Monocyte % 8.2 0.0 - 10.0 % [facility] [place] [facility] Eosinophils Relative % 1.5 0.0 - 5.0 % [facility] [place] [facility] Basophils % 0.3 0.0 - 2.0 % [facility] [place] [facility] Immature Granulocytes% 0.1 0.0 - 1.6 % [facility] [place] [facility] Neutrophils Absolute 3.90 2.00 - 7.900 th/mm3 [facility] [place] [facility] Lymphocytes Absolute 2.14 1.00 - 4.00 th/mm3 [facility] [place] [facility] Monos Absolute 0.55 0.0 - 0.80 th/mm3 [facility] [facility] Eosinophils Absolute Count 0.10 0.00 - 0.40 th/mm3 [facility] [place] [facility] Basophils Absolute 0.02 0.00 - 0.10 th/mm3 [facility] [place] [facility] Immature Granulocytes Absolute 0.01 0.0 - 0.20 th/mm3 [facility] [facility] BusportalQUEST [facility] Blood specimen (specimen) BLOOD SPECIMEN / Unknown 06/24/2018 1:00 PM CDT 06/24/2018 2:26 PM CDT us Lacey Perdue MD LAB BLOOD ORDERABLES Final R esult [facility] [place] [facility] [address] [place], [place] [phone] documented in this encounter Visit Diagnoses Diagnosis Cellulitis of right foot Cellulitis and abscess of foot, except toes Encounter for long-term (current) use of antibiotics documented in this encounter Care Teams Product Development Engineer Relationship Specialty Start Date End Date Coco Leos PA-C [address] [place] [address] PCP - General Physician Controls Designer 10/25/17 11/24/18 documented as of this encounter
--- OUTSIDE RECORDS SUMMARY | 2024-11-23 10:21 | XMS_ITS | Encounter Summary ---
Author Organization [employer] Address [address] [place] [address] Care Team Providers Care Sanitary Aide Name Role Phone Coco Leos PA-C Primary Care Provider [phone] Denny Dey DO Unavailable [phone] Lacey Perdue MD Unavailable [phone] Reason for Referral * MRI/CAT Scan (Routine) - Closed Specialty Diagnoses / Procedures Referred By Celine almaguer Referred To Contact Radiology Diagnoses Staphylococcal arthritis of right ankle Cellulitis of right ankle Procedures MRI Lower Extremity Joint w wo Contrast Logan Jimenez NP Phone: tel: fax: Referral ID Status Reason Start Date Expiration Date Visits Re quested Visits Authorized [id number] Closed 09/02/2018 09/02/2019 1 1 Reason for Visit * Reason Comments Leg Swelling RLE swelling. Onset 2 days ago. Encounter Details Date Type Department Care Team (Latest Contact Info) Description 09/01/2018 3:15 PM CDT Office Visit [place] [id number] [place] [address] Logan Jimenez NP [address] [place] [address] Staphylococcal arthritis of right ankle (HCC) (Primary [...] Instructions * Patient Instructions* Brad Jimenezpetey Crockett, YOUTH DEVELOPMENT PROFESSIONAL - 09/01/2018 3:40 PM CDT Images from [...] your doctor if you can take an sxju-yup-abyxnbu medicine. To prevent cellulitis in the future [...] option found under the Resources tab in [place] [email or web address] If you do not have access to [facility] [place], you can visit [email or web address] and select LocalBonus from the menu on the left. Enter X309 in the searchbox to learn more about Cellulitis: Care Instructions. Not on [facility] [place]? Go to [email or web address] and click the Sign Up Now linkto request an activation code. Current as of: March 02, 2018 Content Version: 11.8 ?? [id number] [employer]. Care instructions adapted under license by your healthcare professional. This care instruction is for use with your licensed healthcare professional. If you have questions about a medical condition or this instruction, always ask your healthcare professional. [facility] disclaims any warranty or liability for your use of this information. Osteomyelitis: Care Instructions Your Care Instructions Osteomyelitis (say uj-yxgu-la-ny-ot-OT-tus ) is a bone infection. It is [...] your doctor if you can take an yrsd-dgf-zbvxtzk medicine. ?? Do mild exercise and stretching [...] option found under the Resources tab in [place] [email or web address]/. If you do not have access to [facility], you can visit [email or web address]://[email or web address]/patient-care and select Health Library from the menu on the left. Enter B364 in the searchbox to learn more about Osteomyelitis: Care Instructions. Not on [facility] [place]? Go to [email or web address] and click the Sign Up Now linkto request an activation code. Current as of: October 05, 2017 Content Version: 11.8 ?? [employer]o [employer]. Care instructions adapted under license by your healthcare professional. This care instruction is for use with your licensed healthcare professional. If you have questions about a medical condition or this instruction, always ask your healthcare professional. [facility] disclaims any warranty or liability for your [...] you learn more? Go to the Search Hithru option found under the Resources tab in [place] [email or web address] If you do not have access to [facility] [place], you can visit [email or web address] and select LocalBonus from the menu on the left. Enter R374 in the searchbox to learn more about Venous Skin Ulcer: Care Instructions. Not on [place]? Go to [email or web address] and click the Sign Up Now linkto request an activation code. Current as of: October 04, 2017 Content Version: 11.8 ?? [id number] [employer]o [employer]. Care instructions adapted under license by your healthcare professional. This care instruction is for use with your licensed healthcare professional. If you have questions about a medical condition or this instruction, always ask your healthcare professional. [facility] disclaims any warranty or liability for your use of this information. documented in this encounter Progress Notes * Logan Jimenez NP - 09/01/2018 3:15 PM CDT Images from the original note were not included. [address] [address] Dept: [phone] Dept Loc: [phone] Loc Date: 09/01/2018 Name: Edilberto Hawley : [...] his symptoms. 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 He is [...] List Items Addressed This Visit Substance abuse ([facility]) Relevant Orders Urine Drug Screen Staphylococcal arthritis of right ankle ([facility]) - Primary Relevant Orders MRI Lower Extremity [...] PM Patients PCP is: Dylan Jasso NP [address] [place] [address] * Yael Berger LPN - 09/01/2018 3:15 [...] Jasso APRN URINE ORDERABLES Veronica bettie Result [facility] [address] [place] [address] [place] [address] * MRI Lower Extremity Joint w wo [...] PM T: ??09/07/2018 4:51 PM Report ID: [id number] Reading Location: ??[id number] Narrative 09/07/2018 4:51 PM CDT [address] [place] [address] Patient Name:EDILBERTO HAWLEY ?Accession Number: [id number] Patient ID Number:[id number] ?Approval Date: 09/07/2018 4:51 PM Date of [...] Procedure Note Kellie Ambrocio MD - 09/07/[address] [place] [id number] Patient Name:EDILBERTO HAWLEY Accession Number: [id number] Patient ID Number:[id number] Approval Date: 09/07/2018 4:51 PM Date of [...] by Kellie Ambrocio M.D. : Report ID: [id number] Reading Location: [place] [address] Logan Jimenez YOUTH DEVELOPMENT PROFESSIONAL IMG MRI ORDERABLES Final Resul t * (ABNORMAL) Urine Drug Screen (09/07/2018 9:00 AM CDT) Cannabinoids,UR NEG NEG [facility]ukedocs[facility] Comment:(Cutoff is 50 ng/mL) Cocaine,UR NEG NEG [facility] [employer] [facility] Comment:(Cutoff is 150 ng/mL ) Opiates,UR POS(A) NEG [facility] [employer] [facility] Comment:(Cutoff is 100 ng/mL ) Amphetamines,UR NEG NEG [facility] [employer] [facility] Comment:(Cut off is 500 ng/m l) Phencyclidine,UR NEG NEG [facility] [employer] [facility] Comment:(Cutoff is 25 ng/mL) Tricyclics UR POS(A) NEG [facility] Comment:(Cut off is 300 ng/m L) Barbiturates,UR NEG NEG [facility] Traverse BiosciencesGE [facility] Comment:(Cutoff is 200 ng/mL ) Methadone Screen NEG NEG [facility] [employer] [facility] Comment:(Cutoff is 200 ng/mL ) Benzodiazepines,UR NEG NEG [facility] [employer]os [employer]HAGE [facility] Comment:(Cutoff is 150 ng/mL ) Oxycodone Screen,UR POS(A) NEG [facility] [employer] [facility] Comment:(Cutoff is 100 ng/mL ) Propoxyphene,UR NEG NEG [facility]ocs[facility] Comment:(Cut off is 300 ng/m L) Buprenorphine UR NEG NEG [facility] Comment:(Cutoff is 10 ng/mL) Methamphetamine NEG NEG [facility]ocs[facility] Comment: (Cut off is 500 ng/ml) ---- URINE TOXICOLOGY RESULTS ARE UNCONFIRMED, QUALITATIVE RESULTS ??FOR MEDICAL PURPOSES ONLY. Urine specimen (specimen) 09/07/2018 9:00 AM CDT 09/07/2018 9:03 AM CDT us Lgoan Jimenez YOUTH DEVELOPMENT PROFESSIONAL URINE ORDERABLES Final Result [facility] [employer] [facility] [address] [place] [address] * Controlled Substance Agreement (09/01/2018) DATE SIGNED [facility] [employer] [facility] 09/01/2018 Narrative [facility] [employer] [facility] - 09/14/2018 8:22 AM CDT See scanned results us Leonard Jasso ETHNOLOGY TEACHER SUBSTANCE ABUSE ORDER RASHMI Final Result Performing Organization Address City/[facility]/ZIP Co de Phone Number [facility] [employer] [facility] [address] [place] [address] documented in this encounter Visit Diagnoses Diagnosis Staphylococcal arthritis of right ankle- Primary Cellulitis of right ankle Substance abuse Other, mixed, or unspecified nondependent drug abuse, unspecified Narcotic drug use Encounter for narcotic contract discussion Staphylococcal arthritis of right ankle Cellulitis of right ankle documented in this encounter Care Teams Sanitary Aide Relationship Specialty Start Date End Date Coco Leos PA-C [address] [place] [address] PCP - General Physician Chemical Dependency Attendant 10/25/17 11/24/18 Denny Dey DO [address] [place] [address] Referring Physician Orthopedic Surgery 06/28/18 9 Lacey Perdue MD [address] [phone] Referring Physician Infectious Diseases 06/28/18 documented as of this encounter
--- OUTSIDE RECORDS SUMMARY | 2024-11-23 10:21 | XMS_ITS | Encounter Summary ---
Author Organization [email or web address] Address [address] [place] [address] Care Team Providers Care Rides Attendant Name Role Phone RobertCoco pérez Katt WISE Primary Care Provider [phone] Denny Dey DO Unavailable [phone] Lacey Perdue MD Unavailable Encounter Details Date Type Department Care Team (Latest Contact Info) Description 07/01/2018 Transcribe Orders [facility] [address] [place] [address] Lacey Perdue MD [address] [address] Urinary tract infection, site not [...] No 10/25/2017 2:00 PM Deonna Padilla, SENIOR PROCUREMENT MANAGER * Do you have serious difficulty walking or climbing stairs? (5 years old or older) Answer Date of Assessment Author No 10/25/2017 2:00 PM Deonna Padilla, SENIOR PROCUREMENT MANAGER * Do you have difficulty dressing or bathing? (5 years old or older) Answer Date of Assessment Author No 10/25/2017 2:00 PM Deonna Padilla, SENIOR PROCUREMENT MANAGER * Because of a physical, mental, or emotional condition, do you have difficulty doing errands alone such as visiting a doctor's office or shopping? (15 years old or older) Answer Date of Assessment Author No 10/25/2017 2:00 PM Deonna Padilla, SENIOR PROCUREMENT MANAGER documented as of this encounter Mental [...] Sedimentation Rate 5 0 - 20 mm/hr [facility] [employer] [facility] Blood specimen (specimen) 07/01/2018 12:45 PM CDT 07/01/2018 3:36 PM CDT us Lacey Perdue MD LAB BLOOD ORDERABLES Final R esult [facility] [employer] [facility] [address] [place], [place] [phone] * (ABNORMAL) Comprehensive metabolic panel (07/01/2018 12:45 PM CDT) Sodium 140 136 - 145 mmol/L [facility] [employer] Potassium 3.8 3.5 - 5.1 mmol/L [facility] [employer] Chloride 105 98 - 107 mmol/L [facility] [employer] CO2 28 21 - 32 mmol/L [facility] Glucose 114(H) 74 - 106 mg/dL [facility] [employer] BUN 11 7.0 - 18.0 mg/dL [facility] [employer] Creatinine 0.95 0.70 - 1.30 mg/dL [facility] Calcium 8.9 8.5 - 10.1 mg/dL [facility] Total Protein 7.1 6.4 - 8.2 g/dL [facility] Albumin 3.6 3.4 - 5.0 g/dL [facility] Bilirubin Total 0.2 0.2 - 1.0 mg/dL [facility] Alkaline Phosphatase 98 56 - 119 U/L [facility] AST 31 15 - 37 U/L [facility] ALT 24 12 - 78 U/L [facility] Creatinine Based eGFR >60 [facility] Comment: GFR REFERENCE RANGE: >60 mL/min/1.73m2 -- An eGFR of > than, or = to 60, may indicate normal renal function or mildly decreased GFR. EGFR /Surinamese >60 [facility] [employer] [facility] Comment: -- An eGFR of > than, or = to 60, may indicate normal renal function or mildly decreased GFR. Blood specimen (specimen) 07/01/2018 12:45 PM CDT 07/01/2018 3:36 PM CDT us Lacey Perdue MD LAB BLOOD ORDERABLES Final R esult [facility] [employer] [address] [place], [place] [phone] * CBC and differential (07/01/2018 12:45 PM CDT) WBC 5.94 4.00 - 11.00 th/mm3 [facility] RBC 4.63 4.50 - 6.50 mill/mm3 [facility] HGB 14.0 13.8 - 18.0 g/dL [facility] HCT 42.2 40.0 - 54.0 % [facility] MCV 91.1 76 - 99 fL [facility] MCH 30.2 27.0 - 32.0 pg [facility] MCHC 33.2 30.0 - 35.0 g/dL [facility] Platelets 207 135 - 470 th/mm3 [facility] RDW-CV 43.0 34.9 - 51.3 fL [facility] [employer] MPV 10.0 8.0 - 12.5 fL [facility]ist[employer] Differential Type AUTOMATED DIFFERENTIAL [facility] Neutrophil % 53.1 45.0 - 75.0 % [facility] Lymphocytes % 34.3 20.0 - 45.0 % [facility] Monocyte % 9.3 0.0 - 10.0 % [facility] Eosinophils Relative % 2.9 0.0 - 5.0 % [facility] Basophils % 0.2 0.0 - 2.0 % [facility] Immature Granulocytes% 0.2 0.0 - 1.6 % [facility] Neutrophils Absolute 3.16 2.00 - 7.900 th/mm3 [facility] Lymphocytes Absolute 2.04 1.00 - 4.00 th/mm3 [facility] Monos Absolute 0.55 0.0 - 0.80 th/mm3 [facility] Eosinophils Absolute Count 0.17 0.00 - 0.40 th/mm3 [facility] [employer]Bee [employer] AssistantsSHOAIB [facility] Basophils Absolute 0.01 0.00 - 0.10 th/mm3 [facility] Immature Granulocytes Absolute 0.01 0.0 - 0.20 th/mm3 [facility] [facility] AssistantsStupe[facility] Blood specimen (specimen) BLOOD SPECIMEN / Unknown 07/01/2018 12:45 PM CDT 07/01/2018 3:36 PM CDT Lacey Perdue MD LAB BLOOD ORDERABLES Final R esult [facility] [facility] [address] [place], [place] [phone] documented in this encounter Visit Diagnoses Diagnosis Urinary tract infection, site not specified- Primary Encounter for long-term (current) use of antibiotics Cellulitis of right foot Cellulitis and abscess of foot, except toes documented in this encounter Care Teams Rides Attendant Relationship Specialty Start Date End Date Coco Leos PA-C [address] [place] [address] PCP - General Physician Operation Supervisor 10/25/17 11/24/18 Denny Dey DO [address] [place] [address] Referring Physician Orthopedic Surgery 06/28/18 9 Lacey Perdue MD [address] [phone] Referring Physician Infectious Diseases 06/28/18 documented as of this encounter
--- OUTSIDE RECORDS SUMMARY | 2024-11-23 10:21 | XMS_ITS | Encounter Summary ---
Author Organization [employer] Address [address] [place] [address] Care Team Providers Care Double End Trimmer Name Role Phone Coco Leos PA-C Primary Care Provider [phone] Encounter Details Date Type Department Care Team (Latest Contact Info) Description 05/27/2018 9:45 AM CDT - 05/27/2018 11:59 PM CDT Hospital Encounter [facility] [address] [place] [address] Cellulitis of right foot; Encounter for long-term [...] Sedimentation Rate 103(H) 0 - 20 mm/hr [facility] [employer] [facility] Blood specimen (specimen) 05/27/2018 9:45 AM CDT 05/27/2018 11:02 AM CDT us Lacey Perdue MD LAB BLOOD ORDERABLES Final R esult [facility] [employer] [facility] [address] [place], [place] [phone] * (ABNORMAL) C-reactive protein (05/27/2018 9:45 AM CDT) CRP 8.70(H) 0.2 - 0.9 mg/dL [facility] Blood specimen (specimen) 05/27/2018 9:45 AM CDT 05/27/2018 11:02 AM CDT us Lacey Perdue MD LAB BLOOD ORDERABLES Final R esult [facility] [address] [place], [place] [phone] * (ABNORMAL) Comprehensive metabolic panel (05/27/2018 9:45 AM CDT) Sodium 134(L) 136 - 145 mmol/L [facility] [employer] [facility] Potassium 4.4 3.5 - 5.1 mmol/L [facility] Chloride 99 98 - 107 mmol/L [facility] CO2 35(H) 21 - 32 mmol/L [facility] [employer] [facility] Glucose 113(H) 74 - 106 mg/dL [facility] [employer] BUN 13 7.0 - 18.0 mg/dL [facility] Creatinine 1.05 0.70 - 1.30 mg/dL [facility] [employer] Calcium 9.0 8.5 - 10.1 mg/dL [facility] [employer] [facility] Total Protein 6.5 6.4 - 8.2 g/dL [facility] [employer] Albumin 2.9(L) 3.4 - 5.0 g/dL [facility] Bilirubin Total 0.3 0.2 - 1.0 mg/dL [facility] [employer] [facility] Alkaline Phosphatase 105 56 - 119 U/L [facility] [employer] [facility] AST 20 15 - 37 U/L [facility] [employer] [facility] ALT 31 12 - 78 U/L [facility] Creatinine Based eGFR >60 [facility] Comment: GFR REFERENCE RANGE: >60 mL/min/1.73m2 -- An eGFR of > than, or = to 60, may indicate normal renal function or mildly decreased GFR. EGFR /[place]er >60 [facility] [employer] [facility] Comment: -- An eGFR of > than, or = to 60, may indicate normal renal function or mildly decreased GFR. Blood specimen (specimen) 05/27/2018 9:45 AM CDT 05/27/2018 11:02 AM CDT us Lacey Perdue MD LAB BLOOD ORDERABLES Final R esult [facility] [employer] [facility] [address] [place] [address] * (ABNORMAL) CBC and differential (05/27/2018 9:45 AM CDT) WBC 10.53 4.00 - 11.00 th/mm3 [facility] [employer] [facility] RBC 4.08(L) 4.50 - 6.50 mill/mm3 [facility] [employer] [facility] HGB 12.6(L) 13.8 - 18.0 g/dL [facility] HCT 38.5(L) 40.0 - 54.0 % [facility] [employer] [facility] MCV 94.4 76 - [address] [facility] MCH 30.9 27.0 - 32.[address] [facility] MCHC 32.7 30.0 - 35.0 g/dL [facility] [employer] [facility] Platelets 386 135 - 470 th/mm3 [facility] [employer] [facility] RDW-CV 40.6 34.9 - 51.[address] [facility] [employer] [facility] MPV 9.6 8.0 - 12.[address] [facility] [employer] [facility] Differential Type AUTOMATED DIFFERENTIAL [facility] Neutrophil % 65.7 45.0 - 75.0 % [facility] [employer] [facility] Lymphocytes % 21.4 20.0 - 45.0 % [facility] Monocyte % 9.4 0.0 - 10.0 % [facility] Eosinophils Relative % 2.3 0.0 - 5.0 % [facility] Basophils % 0.3 0.0 - 2.0 % [facility] Immature Granulocytes% 0.9 0.0 - 1.6 % [facility] Neutrophils Absolute 6.93 2.00 - 7.900 th/mm3 [facility] Lymphocytes Absolute 2.25 1.00 - 4.00 th/mm3 [facility] Monos Absolute 0.99(H) 0.0 - 0.80 th/mm3 [facility] Eosinophils Absolute Count 0.24 0.00 - 0.40 th/mm3 [facility] Basophils Absolute 0.03 0.00 - 0.10 th/mm3 [facility] Immature Granulocytes Absolute 0.09 0.0 - 0.20 th/mm3 [facility] Blood specimen (specimen) BLOOD SPECIMEN / Unknown 05/27/2018 9:45 AM CDT 05/27/2018 11:02 AM CDT us Lacey Perdue MD LAB BLOOD ORDERABLES Final R esult [facility] [employer] [facility] [address] [place], [place] [phone] documented in this encounter Visit Diagnoses Diagnosis Cellulitis of right foot Cellulitis and abscess of foot, except toes Encounter for long-term (current) use of antibiotics Urinary tract infection, site not specified Fitting and adjustment of vascular catheter documented in this encounter Care Teams Double End Trimmer Relationship Specialty Start Date End Date Coco Leos PA-C [address] [place] [address] PCP - General Physician Busgirl 10/25/17 11/24/18 documented as of this encounter
--- OUTSIDE RECORDS SUMMARY | 2024-11-23 10:21 | XMS_ITS | Encounter Summary ---
Author Organization [employer] Address [address] [place] [address] Care Team Providers Care Valve Tester Name Role Phone Kiley Todd MD Primary Care Provider [phone] Encounter Details Date Type Department Care Team (Latest Contact Info) Description 07/20/2017 9:03 AM CDT - 07/20/2017 11:59 PM CDT Hospital Encounter [facility] [address] [place] [address] Enrrique Bragg, PT [address] [place], [place] [phone] Discharge Disposition: Home - Discharge to Home [...] Kiley Todd MD [address] [place] [address] ADDENDUM 07/26/17: Following last visit, shown below, [...] activitytolerance. Consider tband for hip abd/ext. Consider mozambican ball stabilization exercises. Patient Response to Intervention [...] Bragg, PT, DPT 07/20/2017 9:[address] [facility] [place] [address] [place] [address] documented in this encounter Plan of Treatment Not on file documented as of this encounter Visit Diagnoses Not on filedocumented in this encounter Care Teams Valve Tester Relationship Specialty Start Date End Date Kiley Todd MD [address] [place] [address] PCP - General Occupational Medicine 05/19/17 08/03/17 documented as of this encounter
--- OUTSIDE RECORDS SUMMARY | 2024-11-23 10:21 | XMS_ITS | Encounter Summary ---
Author Organization [employer] Address [address] [place] [address] Care Team Providers Care Wind Turbine Design Engineer Name Role Phone Patient, None Per Primary Care Provider Unavaila ble Encounter Details Date Type Department Care Team (Latest Contact Info) Description 08/10/2017 11:00 AM CDT - 08/10/2017 11:59 PM CDT Hospital Encounter [facility] [address] [place] [address] Enrrique Bragg, PT [address] [place] [address] Discharge Disposition: Home - Discharge to Home [...] filedocumented in this encounter Care Teams Wind Turbine Design Engineer Relationship Specialty Start Date End Date Patient, None Per PCP - General 08/04/17 10/24/17 documented as of this encounter
--- OUTSIDE RECORDS SUMMARY | 2024-11-23 10:21 | XMS_ITS | Encounter Summary ---
Author Organization [employer] Address [address] [place] [address] Care Team Providers Care Asbestos Worker Name Role Phone Coco Leos PA-C Primary Care Provider [phone] Denny Dey DO Unavailable [phone] Lacey Perdue MD Unavailable [phone] Encounter Details Date Type Department Care Team (Late st Contact Info) Description 08/09/2018 Orders Only [facility] [address] [place], [place] [phone] Leonard Jasso, COMPLIANCE VICE PRESIDENT [address] [place], [place] [phone] Social History Tobacco Use Types Packs/Day Years [...] of Assessment Author No 10/25/2017 2:00 PM NETWORK PROJECT MANAGER Galvan, Am y S, CONE PICKER * Do you have serious difficulty walking or climbing stairs? (5 years old or older) Answer Date of Assessment Author No 10/25/2017 2:00 PM NETWORK PROJECT MANAGER Deonna Galvan y S, CONE PICKER * Do you have difficulty dressing or bathing? (5 years old or older) Answer Date of Assessment Author No 10/25/2017 2:00 PM NETWORK PROJECT MANAGER Cole Am y S, CONE PICKER * Because of a physical, mental, or emotional condition, do you have difficulty doing errands alone such as visiting a doctor's office or shopping? (15 years old or older) Answer Date of Assessment Author No 10/25/2017 2:00 PM NETWORK PROJECT MANAGER Cole Am y S, CONE PICKER documented as of this encounter Mental Status * Because of a physical, mental, or emotional condition, do you have serious difficulty concentrating, remembering, or making decisions? (5 years old or older) Answer Entry Date Author No 10/25/2017 2:00 PM NETWORK PROJECT MANAGER Deonna Galvan y S, CONE PICKER documented in this encounter Plan of Treatment Not on file documented as of this encounter Goals Goal Patient Goal Type Associated Problems Recent Progress Patient-Stated? Author Blood Pressure < 140/90 Blood Pressure 134/86(2022 2:25 PM CDT) No Leonard Jasso APRN documented as of this encounter Visit Diagnoses Not on filedocumented in this encounter Care Teams Asbestos Worker Relationship Specialty Start Date End Date Coco Leos PA-C [address] [place] [address] PCP - General Physician Forest Management Teacher 10/25/17 11/24/18 Denny Dey DO [address] [place] [address] Referring Physician Orthopedic Surgery 06/28/18 9 Lacey Perdue MD [address] [phone] Referring Physician Infectious Diseases 06/28/18 documented as of this encounter
--- OUTSIDE RECORDS SUMMARY | 2024-11-23 10:21 | XMS_ITS | Encounter Summary ---
Author Organization [employer] Address [address] [place] [address] Care Team Providers Care Maintenance Inspector Name Role Phone Coco Leos PA-C Primary Care Provider [phone] Denny Dey DO Unavailable [phone] Lacey Perdue MD Unavailable [phone] Reason for Visit * Reason Comments Cellulitis right ankle * Referral (Routine) - Closed Specialty Diagnoses / Procedures Referred By Celine almaguer Referred To Contact Internal Medicine Diagnoses Cellulitis of right lower extremity Wound of right lower extremity, subsequent encounter Leonard Jasso, INDUSTRIAL RECRUITER [address] [place] [address] Phone: tel: fax: [address] [place] [address] Phone: tel: fax: Referral ID Status Reason Start Date Expiration Date V isits Requested Visits Authorized [id number] Closed Specialty Services Required 06/24/2018 06/24/2019 1 1 Encounter Details Date Type Department Care Team (Late st Contact Info) Description 06/28/2018 1:00 PM CDT Office Visit [address] [place] [address] Sarahy Maldonado, DO [address] [place] [address] [address] [place] [address] Chronic bilateral low back pain with left-sided [...] Sylvie DO [address] [place], [place] [phone] Patients PCP is: Dylan Jasso NP [address] [place], [place] [address] documented in this encounter Progress Notes * [...] and mental status changes was taken to [facility] and admitted. He has had 2 debridement surgeries on his ankle. He is under the care of infectious disease. He has been under the care of [facility] in the past due to his previous [...] use No Additional Social History Details:recent travel [place] Family History Problem Relation Age of Onset [...] old records for further review especially from [facility] The patient will continue his current course of care with his infectious disease [facility] We will assume pain management and future [...] sequela documented in this encounter Care Teams Maintenance Inspector Relationship Specialty Start Date End Date Coco Leos PA-C [address] [place] [address] PCP - General Physician Clinical Systems Educator 10/25/17 11/24/18 Denny Dey DO [address] [place] [address] Referring Physician Orthopedic Surgery 06/28/18 9 Lacey Perdue MD [address] [phone] Referring Physician Infectious Diseases 06/28/18 documented as of this encounter
--- OUTSIDE RECORDS SUMMARY | 2024-11-23 10:21 | XMS_ITS | Encounter Summary ---
Author Organization [employer] Address [address] [place] [address] Care Team Providers Care Financial Manager Name Role Phone Coco Leos PA-C Primary Care Provider [phone] Denny Dey DO Unavailable [phone] Lacey Perdue MD Unavailable [phone] Encounter Details Date Type Department Care Team (Latest Contact Info) Description 08/08/2018 9:33 AM CDT - 08/08/2018 11:59 PM CDT Hospital Encounter [facility] [address] [phone] High risk medication use; Abnormal drug screen [...] (08/08/2018 9:33 AM CDT) Cannabinoids,UR NEG NEG [facility] Comment:(Cutoff is 50 ng/mL) Cocaine,UR NEG NEG [facility] Comment:(Cutoff is 150 ng/mL ) Opiates,UR POS(A) NEG [facility] Comment:(Cutoff is 100 ng/mL ) Amphetamines,UR NEG NEG [facility] Comment:(Cut off is 500 ng/m l) Phencyclidine,UR NEG NEG [facility] [employer] [facility] Comment:(Cutoff is 25 ng/mL) Tricyclics UR POS(A) NEG [facility] Comment:(Cut off is 200 ng/m L) Barbiturates,UR NEG NEG [facility] Comment:(Cutoff is 200 ng/mL ) Methadone Screen NEG NEG [facility] Comment:(Cutoff is 200 ng/mL ) Benzodiazepines,UR NEG NEG [facility] Comment:(Cutoff is 150 ng/mL ) Oxycodone Screen,UR POS(A) NEG [facility] Comment:(Cutoff is 100 ng/mL ) Propoxyphene,UR NEG NEG [facility] Comment:(Cut off is 200 ng/m L) Buprenorphine UR NEG NEG [facility] Comment:(Cutoff is 10 ng/mL) Methamphetamine NEG NEG [facility] [employer] [facility] Comment: (Cut off is 500 ng/ml) ---- URINE TOXICOLOGY RESULTS ARE UNCONFIRMED, QUALITATIVE RESULTS ??FOR MEDICAL PURPOSES ONLY. Urine specimen (specimen) 08/08/2018 9:33 AM CDT 08/08/2018 2:07 PM CDT Leonard Jasso RIVER TRANSPORTATION WORKER URINE ORDERABLES Veronica alexandre Result [facility] [address] [place], [place] [phone] documented in this encounter Visit Diagnoses Diagnosis High risk medication use Encounter for long-term (current) use of other medications Abnormal drug screen Nonspecific abnormal toxicological findings documented in this encounter Care Teams Financial Manager Relationship Specialty Start Date End Date Coco Leos PA-C [address] [place] [address] PCP - General Physician Natural Gas Technician 10/25/17 11/24/18 Denny Dey DO [address] [place] [address] Referring Physician Orthopedic Surgery 06/28/18 9 Lacey Perdue MD [address] [phone] Referring Physician Infectious Diseases 06/28/18 documented as of this encounter
--- OUTSIDE RECORDS SUMMARY | 2024-11-23 10:21 | XMS_ITS | Encounter Summary ---
Author Organization [employer] Address [address] [place] [address] Care Team Providers Care Customer Loyalty Representative Name Role Phone Patient, None Per Primary Care Provider Unavaila ble Encounter Details Date Type Department Care Team (Latest Contact Info) Description 08/09/2017 11:36 AM CDT - 08/09/2017 11:59 PM CDT Hospital Encounter [facility] [address] [place] [address] Eden Anthony, KETTLE LOADER [address] [place], [place] [phone] Discharge Disposition: Home - Discharge to Home or Self Care Social History Tobacco Use Types Packs/Day Years Used Date Smoking Tobacco: Never Assessed Sex and Gender Information Value Date Recorded Sex Assigned at Not on file Legal Sex Male 10:58 AM CDT Gender Identity Not on file Sexual Orientation Not on file documented as of this encounter Nursing Notes * Eden Anthony, KETTLE LOADER - 08/09/2017 2:07 PM CDT 08/09/17 1205 [...] filedocumented in this encounter Care Teams Customer Loyalty Representative Relationship Specialty Start Date End Date Patient, None Per PCP - General 08/04/17 10/24/17 documented as of this encounter
--- OUTSIDE RECORDS SUMMARY | 2024-11-23 10:21 | XMS_ITS | Encounter Summary ---
Author Organization [employer] Address [address] [place] [address] Care Team Providers Care Staff Forester Name Role Phone Coco Leos PA-C Primary Care Provider [phone] Encounter Details Date Type Department Care Team (Latest Contact Info) Description 06/17/2018 Transcribe Orders [facility] [address] [place] [address] Lacey Perdue MD [address] [phone] Cellulitis of right foot (Primary [...] of Assessment Author No 10/25/2017 2:00 PM RED LEADER Galvan, Am y S, ELEMENTARY EDUCATION TUTOR * Do you have serious difficulty walking or climbing stairs? (5 years old or older) Answer Date of Assessment Author No 10/25/2017 2:00 PM Deonna Padilla, ELEMENTARY EDUCATION TUTOR * Do you have difficulty dressing or bathing? (5 years old or older) Answer Date of Assessment Author No 10/25/2017 2:00 PM Deonna Padilla, ELEMENTARY EDUCATION TUTOR * Because of a physical, mental, or emotional condition, do you have difficulty doing errands alone such as visiting a doctor's office or shopping? (15 years old or older) Answer Date of Assessment Author No 10/25/2017 2:00 PM Deonna Padilla, ELEMENTARY EDUCATION TUTOR documented as of this encounter Mental Status * Because of a physical, mental, or emotional condition, do you have serious difficulty concentrating, remembering, or making decisions? (5 years old or older) Answer Entry Date Author No 10/25/2017 2:00 PM Deonna Padilla, ELEMENTARY EDUCATION TUTOR documented in this encounter Plan of Treatment Not on file documented as of this encounter Results * (ABNORMAL) C-reactive protein (06/17/2018 12:45 PM CDT) CRP 2.00(H) 0.2 - 0.9 mg/dL [facility] Blood specimen (specimen) 06/17/2018 12:45 PM CDT 06/17/2018 2:26 PM CDT us Lacey Perdue MD LAB BLOOD ORDERABLES Final R esult [facility] [address] [place], [place] [phone] * (ABNORMAL) Sedimentation rate (06/17/2018 12:45 PM CDT) Sedimentation Rate 61(H) 0 - 20 mm/hr [facility] Blood specimen (specimen) 06/17/2018 12:45 PM CDT 06/17/2018 2:26 PM CDT us Lacey Perdue MD LAB BLOOD ORDERABLES Final R esult [facility] [address] [place], [place] [phone] * (ABNORMAL) Comprehensive metabolic panel (06/17/2018 12:45 PM CDT) Sodium 136 136 - 145 mmol/L [facility] [employer] [facility] [facility] Potassium 4.0 3.5 - 5.1 mmol/L [facility] [employer] [facility] Comment: (NOTE) SPECIMEN NOTE:SLIGHTLY HEMOLYZED CALLED TO: LIZBETH ZHAGN @ [employer].06/17/18 1522 DCCR Chloride 102 98 - 107 mmol/L [facility] [employer] CO2 31 21 - 32 mmol/L [facility] Glucose 112(H) 74 - 106 mg/dL [facility] BUN 11 7.0 - 18.0 mg/dL [facility] Creatinine 1.02 0.70 - 1.30 mg/dL [facility] Calcium 9.1 8.5 - 10.1 mg/dL [facility] Total Protein 6.9 6.4 - 8.2 g/dL [facility] [employer] [facility] Albumin 3.5 3.4 - 5.0 g/dL [facility] [employer] [facility] Bilirubin Total 0.4 0.2 - 1.0 mg/dL [facility] [employer] [facility] Alkaline Phosphatase 93 56 - 119 U/L [facility] AST 30 15 - 37 U/L [facility] ALT 30 12 - 78 U/L [facility] Creatinine Based eGFR >60 [facility] Comment: GFR REFERENCE RANGE: >60 mL/min/1.73m2 -- An eGFR of > than, or = to 60, may indicate normal renal function or mildly decreased GFR. EGFR /Botswanan >60 [facility] [employer] [facility] Comment: -- An eGFR of > than, or = to 60, may indicate normal renal function or mildly decreased GFR. Blood specimen (specimen) 06/17/2018 12:45 PM CDT 06/17/2018 2:26 PM CDT us Lacey Perdue MD LAB BLOOD ORDERABLES Final R esult [facility] [address] [place], [place] [phone] * (ABNORMAL) CBC and differential (06/17/2018 12:45 PM CDT) WBC 4.65 4.00 - 11.00 th/mm3 [facility] RBC 4.29(L) 4.50 - 6.50 mill/mm3 [facility] [employer] [facility] HGB 12.9(L) 13.8 - 18.0 g/dL [facility] [employer] [facility] HCT 39.8(L) 40.0 - 54.0 % [facility] [employer] [facility] MCV 92.8 76 - 99 fL [facility] [employer] [facility] MCH 30.1 27.0 - 32.0 pg [facility] MCHC 32.4 30.0 - 35.0 g/dL [facility] [employer] [facility] Platelets 220 135 - 470 th/mm3 [facility] [employer] [facility] RDW-CV 41.6 34.9 - 51.3 fL [facility] [employer] [facility] MPV 9.9 8.0 - 12.5 fL [facility] [employer] [facility] Differential Type AUTOMATED DIFFERENTIAL [facility] Neutrophil % 42.2(L) 45.0 - 75.0 % [facility] Lymphocytes % 38.9 20.0 - 45.0 % [facility] Monocyte % 13.3(H) 0.0 - 10.0 % [facility] [employer] [facility] Eosinophils Relative % 5.2(H) 0.0 - 5.0 % [facility] Basophils % 0.4 0.0 - 2.0 % [facility] Immature Granulocytes% 0.0 0.0 - 1.6 % [facility] Neutrophils Absolute 1.96(L) 2.00 - 7.900 th/mm3 [facility] Lymphocytes Absolute 1.81 1.00 - 4.00 th/mm3 [facility] Monos Absolute 0.62 0.0 - 0.80 th/mm3 [facility] Eosinophils Absolute Count 0.24 0.00 - 0.40 th/mm3 [facility] Basophils Absolute 0.02 0.00 - 0.10 th/mm3 [facility] Immature Granulocytes Absolute 0.00 0.0 - 0.20 th/mm3 [facility] Blood specimen (specimen) BLOOD SPECIMEN / Unknown 06/17/2018 12:45 PM CDT 06/17/2018 2:26 PM CDT us Lacey Perdue MD LAB BLOOD ORDERABLES Final R esult [facility] [address] [place], [place] [phone] documented in this encounter Visit Diagnoses Diagnosis Cellulitis of right foot- Primary Cellulitis and abscess of foot, except toes Encounter for long-term (current) use of antibiotics Urinary tract infection, site not specified documented in this encounter Care Teams Staff Forester Relationship Specialty Start Date End Date Coco Leos PA-C [address] [place] [address] PCP - General Physician Information Clerk Cashier 10/25/17 11/24/18 documented as of this encounter
--- OUTSIDE RECORDS SUMMARY | 2024-11-23 10:21 | XMS_ITS | Encounter Summary ---
Author Organization [employer] Address [address] [place] [address] Care Team Providers Care Director Of Sustainability Name Role Phone Coco Leos PA-C Primary Care Provider [phone] Denny Dey DO Unavailable [phone] Lacey Perdue MD Unavailable [phone] Encounter Details Date Type Department Care Team (Latest Contact Info) Description 08/03/2018 3:00 PM CDT - 08/03/2018 11:59 PM CDT Hospital Encounter [facility] [address] [place] [address] Chronic bilateral low back pain with left-sided [...] (08/03/2018 3:00 PM CDT) Cannabinoids,UR NEG NEG [facility] Comment:(Cutoff is 50 ng/mL) Cocaine,UR NEG NEG [facility] [employer] [facility] Comment:(Cutoff is 150 ng/mL ) Opiates,UR NEG NEG [facility] [employer] [facility] Comment:(Cutoff is 100 ng/mL ) Amphetamines,UR NEG NEG [facility] [employer] [facility] Comment:(Cut off is 500 ng/m l) Phencyclidine,UR NEG NEG [facility] [employer] [facility] Comment:(Cutoff is 25 ng/mL) Tricyclics UR POS(A) NEG [facility] Comment:(Cut off is 200 ng/m L) Barbiturates,UR NEG NEG [facility] [employer] [facility] Comment:(Cutoff is 200 ng/mL ) Methadone Screen NEG NEG [facility] [employer] [facility] Comment:(Cutoff is 200 ng/mL ) Benzodiazepines,UR NEG NEG C [facility] [employer] [facility] Comment:(Cutoff is 150 ng/mL ) Oxycodone Screen,UR NEG NEG [facility] [employer] [facility] Comment:(Cutoff is 100 ng/mL ) Propoxyphene,UR NEG NEG [facility] Comment:(Cut off is 200 ng/m L) Buprenorphine UR NEG NEG [facility] Comment:(Cutoff is 10 ng/mL) Methamphetamine NEG NEG [facility] Comment: (Cut off is 500 ng/ml) ---- URINE TOXICOLOGY RESULTS ARE UNCONFIRMED, QUALITATIVE RESULTS ??FOR MEDICAL PURPOSES ONLY. Urine specimen (specimen) 08/03/2018 3:00 PM CDT 08/03/2018 4:14 PM CDT us Leonard Jasso PUBLIC RELATIONS SENIOR ASSOCIATE URINE ORDERABLES Veronica l Result [facility] [address] [place], [place] [phone] documented in this encounter Visit Diagnoses Diagnosis Chronic bilateral low back pain with left-sided sciatica Wound of right lower extremity, subsequent encounter Injury of left rotator cuff, sequela documented in this encounter Care Teams Director Of Sustainability Relationship Specialty Start Date End Date Coco Leos PA-C [address] [place] [phone] PCP - General Physician Automobile Body Customizer 10/25/17 11/24/18 Denny Dey DO [address] [place] [address] Referring Physician Orthopedic Surgery 06/28/18 9 Lacey Perdue MD [address] [phone] Referring Physician Infectious Diseases 06/28/18 documented as of this encounter
--- OUTSIDE RECORDS SUMMARY | 2024-11-23 10:21 | XMS_ITS | Encounter Summary ---
Author Organization [employer] Address [address] [place] [address] Care Team Providers Care Traffic Engineer Name Role Phone Coco Leos PA-C Primary Care Provider [phone] Encounter Details Date Type Department Care Team (Latest Contact Info) Description 06/03/2018 Transcribe Orders [facility] [address] [place] [address] Lacey Perdue MD [address] [phone] Cellulitis of right foot (Primary [...] of Assessment Author No 10/25/2017 2:00 PM FRUIT GROWER Galvan, Am y S, TRANSPORTATION DISPATCH MANAGER * Do you have serious difficulty walking or climbing stairs? (5 years old or older) Answer Date of Assessment Author No 10/25/2017 2:00 PM Deonna Padilla, TRANSPORTATION DISPATCH MANAGER * Do you have difficulty dressing or bathing? (5 years old or older) Answer Date of Assessment Author No 10/25/2017 2:00 PM Deonna Padilla, TRANSPORTATION DISPATCH MANAGER * Because of a physical, mental, or emotional condition, do you have difficulty doing errands alone such as visiting a doctor's office or shopping? (15 years old or older) Answer Date of Assessment Author No 10/25/2017 2:00 PM Deonna Padilla, TRANSPORTATION DISPATCH MANAGER documented as of this encounter Mental Status * Because of a physical, mental, or emotional condition, do you have serious difficulty concentrating, remembering, or making decisions? (5 years old or older) Answer Entry Date Author No 10/25/2017 2:00 PM Deonna Padilla, TRANSPORTATION DISPATCH MANAGER documented in this encounter Plan of Treatment Not on file documented as of this encounter Results * (ABNORMAL) Sedimentation rate (06/03/2018 11:45 AM CDT) Sedimentation Rate 69(H) 0 - 20 mm/hr [facility] [employer] [facility] Blood specimen (specimen) 06/03/2018 11:45 AM CDT 06/03/2018 1:08 PM CDT us Lacey Perdue MD LAB BLOOD ORDERABLES Final R esult [facility] [employer] [facility] [address] [place], [place] [phone] * (ABNORMAL) C-reactive protein (06/03/2018 11:45 AM CDT) CRP 1.90(H) 0.2 - 0.9 mg/dL [facility] [employer] [facility] Blood specimen (specimen) 06/03/2018 11:45 AM CDT 06/03/2018 1:08 PM CDT us Lacey Perdue MD LAB BLOOD ORDERABLES Final R esult [facility] [address] [place], [place] [phone] * (ABNORMAL) Comprehensive metabolic panel (06/03/2018 11:45 AM CDT) Sodium 139 136 - 145 mmol/L [facility] [employer] [facility] Potassium 4.0 3.5 - 5.1 mmol/L [facility] [employer] [facility] Chloride 102 98 - 107 mmol/L [facility] [employer] [facility] CO2 30 21 - 32 mmol/L [facility] [employer] [facility] Glucose 138(H) 74 - 106 mg/dL [facility] BUN 9 7.0 - 18.0 mg/dL [facility] [employer] [facility] Creatinine 1.00 0.70 - 1.30 mg/dL [facility] [employer] [facility] Calcium 8.9 8.5 - 10.1 mg/dL [facility] [employer] [facility] Total Protein 6.5 6.4 - 8.2 g/dL [facility] [employer] [facility] Albumin 3.0(L) 3.4 - 5.0 g/dL [facility] [employer] [facility] Bilirubin Total 0.3 0.2 - 1.0 mg/dL [facility] [employer] [facility] Alkaline Phosphatase 97 56 - 119 U/L [facility] [employer] [facility] AST 18 15 - 37 U/L [facility] [employer] [facility] ALT 13 12 - 78 U/L [facility] [employer] [facility] Creatinine Based eGFR >60 [facility] [employer] [facility] Comment: GFR REFERENCE RANGE: >60 mL/min/1.73m2 -- An eGFR of > than, or = to 60, may indicate normal renal function or mildly decreased GFR. EGFR /Bahraini >60 [facility] Comment: -- An eGFR of > than, or = to 60, may indicate normal renal function or mildly decreased GFR. Blood specimen (specimen) 06/03/2018 11:45 AM CDT 06/03/2018 1:08 PM CDT us Lacey Perdue MD LAB BLOOD ORDERABLES Final R esult [facility] [address] [place], [place] [phone] * (ABNORMAL) CBC and differential (06/03/2018 11:45 AM CDT) WBC 5.55 4.00 - 11.00 th/mm3 [facility] RBC 4.06(L) 4.50 - 6.50 mill/mm3 [facility] HGB 12.5(L) 13.8 - 18.0 g/dL [facility] HCT 36.9(L) 40.0 - 54.0 % [facility] MCV 90.9 76 - 99 fL [facility] MCH 30.8 27.0 - 32.0 pg [facility] MCHC 33.9 30.0 - 35.0 g/dL [facility] Platelets 221 135 - 470 th/mm3 [facility] RDW-CV 39.0 34.9 - 51.3 fL [facility] MPV 9.7 8.0 - 12.5 fL [facility] Differential Type AUTOMATED DIFFERENTIAL [facility] Neutrophil % 63.4 45.0 - 75.0 % [facility] Lymphocytes % 24.0 20.0 - 45.0 % [facility] Monocyte % 9.7 0.0 - 10.0 % [facility] Eosinophils Relative % 2.5 0.0 - 5.0 % [facility] Basophils % 0.2 0.0 - 2.0 % [facility] Immature Granulocytes% 0.2 0.0 - 1.6 % [facility] Neutrophils Absolute 3.52 2.00 - 7.900 th/mm3 [facility] Lymphocytes Absolute 1.33 1.00 - 4.00 th/mm3 [facility] Monos Absolute 0.54 0.0 - 0.80 th/mm3 [facility] Eosinophils Absolute Count 0.14 0.00 - 0.40 th/mm3 [facility] Basophils Absolute 0.01 0.00 - 0.10 th/mm3 [facility] Immature Granulocytes Absolute 0.01 0.0 - 0.20 th/mm3 [facility] Blood specimen (specimen) BLOOD SPECIMEN / Unknown 06/03/2018 11:45 AM CDT 06/03/2018 1:08 PM CDT us Lacey Perdue MD LAB BLOOD ORDERABLES Final R esult [facility] [employer] [facility] [address] [place], [place] [phone] documented in this encounter Visit Diagnoses Diagnosis Cellulitis of right foot- Primary Cellulitis and abscess of foot, except toes Encounter for long-term (current) use of antibiotics Urinary tract infection, site not specified documented in this encounter Care Teams Traffic Engineer Relationship Specialty Start Date End Date Coco Leos PA-C [address] [address] PCP - General Physician Artist Manager 10/25/17 11/24/18 documented as of this encounter
--- OUTSIDE RECORDS SUMMARY | 2024-11-23 10:21 | XMS_ITS | Encounter Summary ---
Author Organization [employer] Address [address] [place] [address] Care Team Providers Care Lehr Loader Name Role Phone Coco Leos PA-C Primary Care Provider [phone] Denny Dey DO Unavailable [phone] Lacey Perdue MD Unavailable Reason for Visit * Reason Onset Date Comments med refill 08/09/2018 Encounter Details Date Type Department Care Team (Late st Contact Info) Description 08/09/[address] [address] Yael Sim, EXCEPTIONAL CHILDREN'S TEACHER [address] [facility] [address] [place], [place] [phone] med refill Social History Tobacco Use Types [...] of Assessment Author No 10/25/2017 2:00 PM FERRY TERMINAL SUPERVISOR Galvan, Am y S, PROCEDURE WRITER * Do you have serious difficulty walking or climbing stairs? (5 years old or older) Answer Date of Assessment Author No 10/25/2017 2:00 PM Deonna Padilla S, PROCEDURE WRITER * Do you have difficulty dressing or bathing? (5 years old or older) Answer Date of Assessment Author No 10/25/2017 2:00 PM Deonna Padilla S, PROCEDURE WRITER * Because of a physical, mental, or emotional condition, do you have difficulty doing errands alone such as visiting a doctor's office or shopping? (15 years old or older) Answer Date of Assessment Author No 10/25/2017 2:00 PM JOHN Galvan Am y S, PROCEDURE WRITER documented as of this encounter Mental Status * Because of a physical, mental, or emotional condition, do you have serious difficulty concentrating, remembering, or making decisions? (5 years old or older) Answer Entry Date Author No 10/25/2017 2:00 PM Deonna Padilla, PROCEDURE WRITER documented in this encounter Miscellaneous Notes * Telephone Encounter - Yael Sim LPN - 08/09/2018 3:53 PM CDT Pt called pharmacy for medication refill. Notified pt that script was ready. Pt sts that he thinks he is going to go to [place] for work et wanted to know if he had to see pcp monthly or every 3 months d/t controlled medication scripts. Instructed pt to call clinic when he knew for sure that he was going to [place] et that this nurse would verify with [...] on filedocumented in this encounter Care Teams Lehr Loader Relationship Specialty Start Date End Date Coco Leos PA-C [address] [place] [address] PCP - General Physician Program Director/Morning Show Host 10/25/17 11/24/18 Denny Dey DO [address] [place] [address] Referring Physician Orthopedic Surgery 06/28/18 9 Lacey Perdue MD [address] [phone] Referring Physician Infectious Diseases 06/28/18 documented as of this encounter
--- OUTSIDE RECORDS SUMMARY | 2024-11-23 10:21 | XMS_ITS | Encounter Summary ---
Author Organization [employer] Address [address] [place] [address] Care Team Providers Care Foil Wrapper Name Role Phone RobertbetoGraceCoco Katt WISE Primary Care Provider [phone] Denny Dey DO Unavailable [phone] Lacey Perdue MD Unavailable Encounter Details Date Type Department Care Team (Latest Contact Info) Description 06/24/2018 Transcribe Orders [facility] [address] [place] [phone] Lacey Perdue MD [address] [phone] Cellulitis of right foot (Primary [...] of Assessment Author No 10/25/2017 2:00 PM [facility] Deonna Galvan, GEORGE * Are you blind or do you have serious difficulty seeing, even when wearing glasses? Answer Date of Assessment Author No 10/25/2017 2:00 PM Deonna Padilla, MD DO [facility] * Do you have serious difficulty walking or climbing stairs? (5 years old or older) Answer Date of Assessment Author No 10/25/2017 2:00 PM Deonna Padilla, MD DO [facility] * Do you have difficulty dressing or bathing? (5 years old or older) Answer Date of Assessment Author No 10/25/2017 2:00 PM Deonna Padilla, MD DO [facility] * Because of a physical, mental, or [...] Sedimentation Rate 46(H) 0 - 20 mm/hr [facility] Blood specimen (specimen) 06/24/2018 1:00 PM CDT 06/24/2018 2:26 PM CDT us Lacey Perdue MD LAB BLOOD ORDERABLES Final R esult [facility] [address] [place], [place] [phone] * C-reactive protein (06/24/2018 1:00 PM CDT) CRP 0.80 0.2 - 0.9 mg/dL [facility] Solutions[facility] LAB Blood specimen (specimen) 06/24/2018 1:00 PM CDT 06/24/2018 2:26 PM CDT us Lacey Perdue MD LAB BLOOD ORDERABLES Final R esult [facility] Health Solutions[facility] LAB [address] [place], [place] [phone] * (ABNORMAL) Comprehensive metabolic panel (06/24/2018 1:00 PM CDT) Sodium 138 136 - 145 mmol/L [facility] [employer] [facility] Potassium 3.8 3.5 - 5.1 mmol/L [facility] Chloride 103 98 - 107 mmol/L [facility] [employer]HA[employer] [facility] CO2 28 21 - 32 mmol/L [facility] [employer] [facility] Glucose 162(H) 74 - 106 mg/dL [facility] CARTH[facility] BUN 12 7.0 - 18.0 mg/dL [facility] [facility] Creatinine 0.97 0.70 - 1.30 mg/dL [facility] [employer] Calcium 8.7 8.5 - 10.1 mg/dL [facility] [employer]HA[employer] [facility] Total Protein 7.1 6.4 - 8.2 g/dL [facility] Albumin 3.6 3.4 - 5.0 g/dL [facility] [employer] [facility] Bilirubin Total 0.4 0.2 - 1.0 mg/dL [facility] Alkaline Phosphatase 96 56 - 119 U/L [facility] [employer] AST 22 15 - 37 U/L [facility] ALT 17 12 - 78 U/L [facility] Health Solutions[facility] LAB Creatinine Based eGFR >60 [facility] Health Solutions[facility] LAB Comment: GFR REFERENCE RANGE: >60 mL/min/1.73m2 -- An eGFR of > than, or = to 60, may indicate normal renal function or mildly decreased GFR. EGFR /Central African >60 [facility] PayRight Health SolutionsQUEST LAB Comment: -- An eGFR of > than, or = to 60, may indicate normal renal function or mildly decreased GFR. Blood specimen (specimen) 06/24/2018 1:00 PM CDT 06/24/2018 2:26 PM CDT us Lacey Perdue MD LAB BLOOD ORDERABLES Final R esult [facility] [address] [place] [address] * CBC and differential (06/24/2018 1:00 PM CDT) WBC 6.72 4.00 - 11.00 th/mm3 [facility] RBC 4.58 4.50 - 6.50 mill/mm3 [facility] HGB 13.8 13.8 - 18.0 g/dL [facility] [employer]ove[employer] [facility] HCT 40.9 40.0 - 54.0 % [facility] MCV 89.3 76 - 99 fL [facility] [employer] MCH 30.1 27.0 - 32.0 pg [facility] MCHC 33.7 30.0 - 35.0 g/dL [facility] [employer] Platelets 227 135 - 470 th/mm3 [facility] RDW-CV 40.2 34.9 - 51.3 fL [facility] MPV 10.2 8.0 - 12.5 fL [facility] Differential Type AUTOMATED DIFFERENTIAL [facility] PayRight Health SolutionsQUEST LAB Neutrophil % 58.1 45.0 - 75.0 % [facility] [employer] [facility] Lymphocytes % 31.8 20.0 - 45.0 % [facility] Monocyte % 8.2 0.0 - 10.0 % [facility] Eosinophils Relative % 1.5 0.0 - 5.0 % [facility] Basophils % 0.3 0.0 - 2.0 % [facility] Immature Granulocytes% 0.1 0.0 - 1.6 % [facility] Neutrophils Absolute 3.90 2.00 - 7.900 th/mm3 [facility] Lymphocytes Absolute 2.14 1.00 - 4.00 th/mm3 [facility] Monos Absolute 0.55 0.0 - 0.80 th/mm3 [facility] Eosinophils Absolute Count 0.10 0.00 - 0.40 th/mm3 [facility] Basophils Absolute 0.02 0.00 - 0.10 th/mm3 [facility] Immature Granulocytes Absolute 0.01 0.0 - 0.20 th/mm3 [facility] Blood specimen (specimen) BLOOD SPECIMEN / Unknown 06/24/2018 1:00 PM CDT 06/24/2018 2:26 PM CDT us Lacey Perdue MD LAB BLOOD ORDERABLES Final R esult [facility] [address] [place], [place] [phone] documented in this encounter Visit Diagnoses Diagnosis Cellulitis of right foot- Primary Cellulitis and abscess of foot, except toes Encounter for long-term (current) use of antibiotics documented in this encounter Care Teams Foil Wrapper Relationship Specialty Start Date End Date Coco Leos PA-C [address] [place] [phone] PCP - General Physician Crystal Attacher 10/25/17 11/24/18 Denny Dey DO [address] [place] [id number] Referring Physician Orthopedic Surgery 06/28/18 9 Lacey Perdue MD [address] [phone] Referring Physician Infectious Diseases 06/28/18 documented as of this encounter
--- OUTSIDE RECORDS SUMMARY | 2024-11-23 10:21 | XMS_ITS | Encounter Summary ---
Author Organization [employer] Address [address] [place] [address] Care Team Providers Care Advertising Specialist Name Role Phone Kiley Todd MD Primary Care Provider [phone] Encounter Details Date Type Department Care Team (Latest Contact Info) Description 06/30/2017 12:30 PM CDT - 06/30/2017 2:05 PM CDT Hospital Encounter [facility] [address] [place] [address] Enrrique Bragg, PT [address] [place], [place] [phone] Discharge Disposition: Home - Discharge to Home [...] Kiley Todd MD [address] [place] [address] Treatment Dates: 5 visits from 06/16-06/30/17 Summary [...] x 10 hold 3 sec; PPT with [id number] ; all 2-3x/day Assessment/Plan Clinical Impression Pt [...] Bragg, PT, DPT 06/30/2017 2:27 PM . [facility] [address] [place] [address] documented in this encounter Plan of Treatment Not on file documented as of this encounter Visit Diagnoses Not on filedocumented in this encounter Care Teams Advertising Specialist Relationship Specialty Start Date End Date Kiley Todd MD [address] [place] [facility] [place] [phone] PCP - General Occupational Medicine 05/19/17 08/03/17 documented as of this encounter
--- OUTSIDE RECORDS SUMMARY | 2024-11-23 10:21 | XMS_ITS | Encounter Summary ---
Author Organization [employer] Address [address] [place] [address] Care Team Providers Care Fish Fryer Name Role Phone Coco Leos PA-C Primary Care Provider [phone] Encounter Details Date Type Department Care Team (Latest Contact Info) Description 06/10/2018 12:12 PM CDT - 06/10/2018 11:59 PM CDT Hospital Encounter [facility] [address] [place] [address] Cellulitis of right foot; Antibiotic long-term use; [...] Sedimentation Rate 57(H) 0 - 20 mm/hr [facility] [employer] [facility] Blood specimen (specimen) 06/10/2018 11:15 AM CDT 06/10/2018 12:28 PM CDT us Lacey Perdue MD LAB BLOOD ORDERABLES Final R esult [facility] [employer] [facility] [address] [place] [address] * Comprehensive metabolic panel (06/10/2018 11:15 AM CDT) Sodium 137 136 - 145 mmol/L [facility] [employer] [facility] Potassium 4.3 3.5 - 5.1 mmol/L [facility] [employer] [facility] Chloride 103 98 - 107 mmol/L [facility] CO2 30 21 - 32 mmol/L [facility] Glucose 105 74 - 106 mg/dL [facility] BUN 11 7.0 - 18.0 mg/dL [facility] [employer] [facility] Creatinine 0.86 0.70 - 1.30 mg/dL [facility] [employer] [facility] Calcium 8.8 8.5 - 10.1 mg/dL [facility] Total Protein 6.9 6.4 - 8.2 g/dL [facility] Albumin 3.4 3.4 - 5.0 g/dL [facility] Bilirubin Total 0.3 0.2 - 1.0 mg/dL [facility] [employer]teHAIs[employer] [facility] Alkaline Phosphatase 95 56 - 119 U/L [facility] [employer] [facility] AST 17 15 - 37 U/L [facility] [employer] [facility] ALT 14 12 - 78 U/L [facility] [employer] [facility] Creatinine Based eGFR >60 [facility] [employer] [facility] Comment: GFR REFERENCE RANGE: >60 mL/min/1.73m2 -- An eGFR of > than, or = to 60, may indicate normal renal function or mildly decreased GFR. EGFR /Guyanese >60 [facility] EditoriallyQUEST LAB Comment: -- An eGFR of > than, or = to 60, may indicate normal renal function or mildly decreased GFR. Blood specimen (specimen) 06/10/2018 11:15 AM CDT 06/10/2018 12:28 PM CDT us Lacey Perdue MD LAB BLOOD ORDERABLES Final R esult [facility] [address] [place], [place] [phone] * (ABNORMAL) CBC and differential (06/10/2018 11:15 AM CDT) WBC 5.89 4.00 - 11.00 th/mm3 [facility] RBC 4.29(L) 4.50 - 6.50 mill/mm3 [facility] HGB 13.0(L) 13.8 - 18.0 g/dL [facility] HCT 38.9(L) 40.0 - 54.0 % [facility] MCV 90.7 76 - 99 fL [facility] MCH 30.3 27.0 - 32.0 pg [facility] MCHC 33.4 30.0 - 35.0 g/dL [facility] Platelets 193 135 - 470 th/mm3 [facility] RDW-CV 39.8 34.9 - 51.3 fL [facility] MPV 9.9 8.0 - 12.5 fL [facility] Differential Type AUTOMATED DIFFERENTIAL [facility] Neutrophil % 54.8 45.0 - 75.0 % [facility] Lymphocytes % 32.6 20.0 - 45.0 % [facility] Monocyte % 9.8 0.0 - 10.0 % [facility] Eosinophils Relative % 2.4 0.0 - 5.0 % [facility] Basophils % 0.2 0.0 - 2.0 % [facility] Immature Granulocytes% 0.2 0.0 - 1.6 % [facility] Neutrophils Absolute 3.23 2.00 - 7.900 th/mm3 [facility] Lymphocytes Absolute 1.92 1.00 - 4.00 th/mm3 [facility] Monos Absolute 0.58 0.0 - 0.80 th/mm3 [facility] Eosinophils Absolute Count 0.14 0.00 - 0.40 th/mm3 [facility] popchipsQUEST LAB Basophils Absolute 0.01 0.00 - 0.10 th/mm3 [facility] popchipsQUEST LAB Immature Granulocytes Absolute 0.01 0.0 - 0.20 th/mm3 [facility] [employer] [facility] Blood specimen (specimen) BLOOD SPECIMEN / Unknown 06/10/2018 11:15 AM CDT 06/10/2018 12:28 PM CDT Lacey Perdue MD LAB BLOOD ORDERABLES Final R esult [facility] [facility] [address] [place] [address] * C-reactive protein (06/10/2018 11:15 AM CDT) CRP 0.30 0.2 - 0.9 mg/dL [facility] Blood specimen (specimen) 06/10/2018 11:15 AM CDT 06/10/2018 12:28 PM CDT Lacey Perdue MD LAB BLOOD ORDERABLES Final R esult [facility] [address] [place], [place] [phone] documented in this encounter Visit Diagnoses Diagnosis Cellulitis of right foot Cellulitis and abscess of foot, except toes Antibiotic long-term use Encounter for long-term (current) use of antibiotics Urinary tract infection Urinary tract infection, site not specified Encounter for fitting of portacath Fitting and adjustment of vascular catheter documented in this encounter Care Teams Fish Fryer Relationship Specialty Start Date End Date Coco Leos PA-C [address] [place] [address] PCP - General Physician Maintenance Mechanic Telephone 10/25/17 11/24/18 documented as of this encounter
--- OUTSIDE RECORDS SUMMARY | 2024-11-23 10:21 | XMS_ITS | Encounter Summary ---
Author Organization [employer] Address [address] [place] [address] Care Team Providers Care Drafting Layout Man Name Role Phone Coco Leos PA-C Primary Care Provider [phone] Encounter Details Date Type Department Care Team (Latest Contact Info) Description 06/17/2018 12:45 PM CDT - 06/17/2018 11:59 PM CDT Hospital Encounter [facility] [address] [place] [phone] Cellulitis of right foot; Encounter for long-term [...] CDT) Sodium 136 136 - 145 mmol/L [facility] Potassium 4.0 3.5 - 5.1 mmol/L [facility]QUEST [facility] Comment: (NOTE) SPECIMEN NOTE:SLIGHTLY HEMOLYZED CALLED TO: LIZBETH ZHANG @ [facility].06/17/18 1522 DCCR Chloride 102 98 - 107 mmol/L [facility]QUEST [facility] CO2 31 21 - 32 mmol/L [facility] [employer] [facility] Glucose 112(H) 74 - 106 mg/dL [facility]QUEST [facility] BUN 11 7.0 - 18.0 mg/dL [facility] Creatinine 1.02 0.70 - 1.30 mg/dL [facility] Calcium 9.1 8.5 - 10.1 mg/dL [facility] Total Protein 6.9 6.4 - 8.2 g/dL [facility] Albumin 3.5 3.4 - 5.0 g/dL [facility] Bilirubin Total 0.4 0.2 - 1.0 mg/dL [facility] Alkaline Phosphatase 93 56 - 119 U/L [facility] AST 30 15 - 37 U/L [facility] ALT 30 12 - 78 U/L [facility] Creatinine Based eGFR >60 [facility] Comment: GFR REFERENCE RANGE: >60 mL/min/1.73m2 -- An eGFR of > than, or = to 60, may indicate normal renal function or mildly decreased GFR. EGFR /Bahraini >60 [facility] CartRescuerOpenGov [facility] Comment: -- An eGFR of > than, or = to 60, may indicate normal renal function or mildly decreased GFR. Blood specimen (specimen) 06/17/2018 12:45 PM CDT 06/17/2018 2:26 PM CDT us Lacey Perdue MD LAB BLOOD ORDERABLES Final R esult [facility] [employer] [facility] [address] [place], [place] [phone] * (ABNORMAL) CBC and differential (06/17/2018 12:45 PM CDT) WBC 4.65 4.00 - 11.00 th/mm3 [facility] CartRescuerGE [facility] RBC 4.29(L) 4.50 - 6.50 mill/mm3 [facility] HGB 12.9(L) 13.8 - 18.0 g/dL [facility] HCT 39.8(L) 40.0 - 54.0 % [facility] MCV 92.8 76 - 99 fL [facility] MCH 30.1 27.0 - 32.0 pg [facility] MCHC 32.4 30.0 - 35.0 g/dL [facility] Platelets 220 135 - 470 th/mm3 [facility] RDW-CV 41.6 34.9 - 51.3 fL [facility] MPV 9.9 8.0 - 12.5 fL [facility] [employer]RescuerHAGE [facility] Differential Type AUTOMATED DIFFERENTIAL [facility] Neutrophil % 42.2(L) 45.0 - 75.0 % [facility] Lymphocytes % 38.9 20.0 - 45.0 % [facility] Monocyte % 13.3(H) 0.0 - 10.0 % [facility] Eosinophils Relative % 5.2(H) 0.0 - 5.0 % [facility] Basophils % 0.4 0.0 - 2.0 % [facility] Immature Granulocytes% 0.0 0.0 - 1.6 % [facility] Neutrophils Absolute 1.96(L) 2.00 - 7.900 th/mm3 [facility] Lymphocytes Absolute 1.81 1.00 - 4.00 th/mm3 [facility] Monos Absolute 0.62 0.0 - 0.80 th/mm3 [facility] Eosinophils Absolute Count 0.24 0.00 - 0.40 th/mm3 [facility] Basophils Absolute 0.02 0.00 - 0.10 th/mm3 [facility] Immature Granulocytes Absolute 0.00 0.0 - 0.20 th/mm3 [facility] Blood specimen (specimen) BLOOD SPECIMEN / Unknown 06/17/2018 12:45 PM CDT 06/17/2018 2:26 PM CDT us Lacey Perdue MD LAB BLOOD ORDERABLES Final R esult Performing Organization Address City/[facility]/ZIP Co de Phone Number [facility] [address] [place] [address] * (ABNORMAL) C-reactive protein (06/17/2018 12:45 PM CDT) CRP 2.00(H) 0.2 - 0.9 mg/dL [facility] Blood specimen (specimen) 06/17/2018 12:45 PM CDT 06/17/2018 2:26 PM CDT us Lacey Perdue MD LAB BLOOD ORDERABLES Final R esult Performing Organization Address [facility]/ZIP Co de Phone Number [facility] [address] [place] [address] * (ABNORMAL) Sedimentation rate (06/17/2018 12:45 PM CDT) Sedimentation Rate 61(H) 0 - 20 mm/hr [facility] Blood specimen (specimen) 06/17/2018 12:45 PM CDT 06/17/2018 2:26 PM CDT us Lacey Perdue MD LAB BLOOD ORDERABLES Final R esult Performing Organization Address City/[facility]/ZIP Co de Phone Number [facility] [address] [place] [address] documented in this encounter Visit Diagnoses Diagnosis Cellulitis of right foot Cellulitis and abscess of foot, except toes Encounter for long-term (current) use of antibiotics Urinary tract infection, site not specified documented in this encounter Care Teams Drafting Layout Man Relationship Specialty Start Date End Date Coco Leos PA-C [address] [place] [id number] PCP - General Physician Surface Plate Inspector 10/25/17 11/24/18 documented as of this encounter
--- OUTSIDE RECORDS SUMMARY | 2024-11-23 10:21 | XMS_ITS | Encounter Summary ---
Author Organization [employer] Address [address] [place] [address] Care Team Providers Care Collar Stitcher Name Role Phone Kiley Todd MD Primary Care Provider [phone]- [phone] Encounter Details Date Type Department Care Team (Latest Contact Info) Description 06/24/2017 8:30 AM CDT - 06/24/2017 11:59 PM CDT Hospital Encounter [facility] [address] [place] [phone] Enrrique Bragg, PT [address] [place] [address] Discharge Disposition: Home - Discharge [...] long, convoluted story about travelling back to [place] last weekend to visit his son and [...] filedocumented in this encounter Care Teams Collar Stitcher Relationship Specialty Start Date End Date Kiley Todd MD [address] [place] [address] PCP - General Occupational Medicine 05/19/17 08/03/17 documented as of this encounter
--- OUTSIDE RECORDS SUMMARY | 2024-11-23 10:22 | XMS_ITS | Encounter Summary ---
Author Organization [employer] Address [address] [place] [address] Care Team Providers Care Manager Freelance Name Role Phone Kiley Todd MD Primary Care Provider [phone]- [phone] Encounter Details Date Type Department Care Team (Latest Contact Info) Description 06/18/2017 12:27 PM CDT - 06/18/2017 11:59 PM CDT Hospital Encounter [facility] [address] [place] [phone] Kaye Knight, MIRROR MACHINE FEEDER [address] [place], [place] [phone] Discharge Disposition: Home - Discharge to Home or Self Care Social History Tobacco Use Types Packs/Day Years Used Date Smoking Tobacco: Never Assessed Sex and Gender Information Value Date Recorded Sex Assigned at Not on file Legal Sex Male 10:58 AM CDT Gender Identity Not on file Sexual Orientation Not on file documented as of this encounter Nursing Notes * Kaye Knight, MIRROR MACHINE FEEDER - 06/18/2017 1:27 PM CDT 06/18/17 1259 General OP therapy treatment number 2 JK Referring Provider [employer] [facility] M-[employer]X Insurance/Authorization 12/25 2 patient identifiers Yes Primary [...] on filedocumented in this encounter Care Teams Manager Freelance Relationship Specialty Start Date End Date Kiley Todd MD [address] [place] [facility] [place] [address] PCP - General Occupational Medicine 05/19/17 08/03/17 documented as of this encounter
--- OUTSIDE RECORDS SUMMARY | 2024-11-23 10:22 | XMS_ITS | Encounter Summary ---
Author Organization [employer] Address [address] [place] [address] Care Team Providers Care Paper Sample Clerk Name Role Phone Kiley Todd MD Primary Care Provider +1- [phone] Encounter Details Date Type Department Care Team (Latest Contact Info) Description 06/21/2017 1:45 PM CDT - 06/21/2017 11:59 PM CDT Hospital Encounter [facility] [address] [place] [phone] Kaye Knight, JAVA PROGRAMMER [address] [place], [place] [phone] Discharge Disposition: Home - Discharge to Home or Self Care Social History Tobacco Use Types Packs/Day Years Used Date Smoking Tobacco: Never Assessed Sex and Gender Information Value Date Recorded Sex Assigned at Not on file Legal Sex Male 10:58 AM CDT Gender Identity Not on file Sexual Orientation Not on file documented as of this encounter Nursing Notes * Kaye Knight, JAVA PROGRAMMER - 06/21/2017 2:25 PM CDT 06/21/17 1349 General OP therapy treatment number 3 JK Referring Provider [employer] Insurance [facility] [employer] Insurance/Authorization PN 01/22 Primary diagnosis LBP with [...] filedocumented in this encounter Care Teams Paper Sample Clerk Relationship Specialty Start Date End Date Kiley Todd MD [address] [facility] [place] [address] PCP - General Occupational Medicine 05/19/17 08/03/17 documented as of this encounter
--- OUTSIDE RECORDS SUMMARY | 2024-11-23 10:22 | XMS_ITS | Encounter Summary ---
Author Organization [email or web address] Address [address] [place] [address] Care Team Providers Care Container Coordinator Name Role Phone Kiley Todd MD Primary Care Provider +1- [phone] Reason for Referral * MRI/CAT Scan (Routine) - Closed Specialty Diagnoses / Procedures Referred By Contac t Referred To Contact Radiology Diagnoses Fall Confusion Weakness Balance problems Procedures MRI BRAIN W WO CONTRAST Kiley Todd MD [address] [place] [address] Phone: tel: fax: Referral ID Status Reason Start Date Expiration Date Visits Re quested Visits Authorized [id number] Closed 06/10/2017 06/10/2018 1 1 Encounter Details Date Type Department Care Team (Late st Contact Info) Description 06/10/2017 Transcribe Orders [facility] [address] [place], [place] [phone] Kiley Todd MD [address] [place] [address] Fall (Primary Dx); Confusion; Weakness; Balance [...] systems documented in this encounter Care Teams Container Coordinator Relationship Specialty Start Date End Date Kiley Todd MD [address] [place] [address] PCP - General Occupational Medicine 05/19/17 08/03/17 documented as of this encounter
--- OUTSIDE RECORDS SUMMARY | 2024-11-23 10:22 | XMS_ITS | Encounter Summary ---
Author Organization [employer] Address [address] [place] [address] Care Team Providers Care Ar Manager Name Role Phone Kiley Todd MD Primary Care Provider +1- [phone] Encounter Details Date Type Department Care Team (Latest Contact Info) Description 05/26/2017 1:00 PM CDT - 05/26/2017 11:59 PM CDT Hospital Encounter [facility] [address] [place], [place] [phone] Bri Lobo, PT [address] [place], [place] [phone] Discharge Disposition: Home - Discharge to Home [...] on filedocumented in this encounter Care Teams Ar Manager Relationship Specialty Start Date End Date Kiley Todd MD [address] [place] [address] PCP - General Occupational Medicine 05/19/17 08/03/17 documented as of this encounter
--- OUTSIDE RECORDS SUMMARY | 2024-11-23 10:22 | XMS_ITS | Encounter Summary ---
Author Organization [employer] Address [address] [place] [address] Care Team Providers Care Yardage Control Clerk Name Role Phone Kiley Todd MD Primary Care Provider +1- [phone] Encounter Details Date Type Department Care Team (Latest Contact Info) Description 06/08/2017 7:59 AM CDT - 06/08/2017 11:59 PM CDT Hospital Encounter [facility] [address] [place], [place] [phone] Verónica Dominguez, PT [address] [place], [place] [phone] Discharge Disposition: Home - Discharge to Home [...] Dominguez, PT - 06/08/2017 10:19 AM CDT Cardiovascular Provider [employer] Progress Note for Outpatient Physical Therapy Patient [...] concerns. Verónica Dominguez, PT 06/08/2017 10:20 AM [facility] [address] [place] [address] Ph. [phone] Fax. [phone] documented in this encounter Plan of Treatment Not on file documented as of this encounter Visit Diagnoses Not on filedocumented in this encounter Care Teams Yardage Control Clerk Relationship Specialty Start Date End Date Kiley Todd MD [address] [place] [address] PCP - General Occupational Medicine 05/19/17 08/03/17 documented as of this encounter
--- OUTSIDE RECORDS SUMMARY | 2024-11-23 10:22 | XMS_ITS | Encounter Summary ---
Author Organization [employer] Address [address] [place] [address] Care Team Providers Care Lactation Specialist Name Role Phone Kiley Todd MD Primary Care Provider +1- [phone] Encounter Details Date Type Department Care Team (Latest Contact Info) Description 05/25/2017 1:57 PM CDT - 05/25/2017 11:59 PM CDT Hospital Encounter [facility] [address] [place], [place] [phone] Verónica Dominguez, PT [address] [place], [place] [phone] Discharge Disposition: Home - Discharge to Home [...] Dominguez, PT - 05/25/2017 3:59 PM CDT [employer] [facility] 700 PHYSICAL THERAPY PLAN OF CARE Patient [...] level of function status Pt works for [employer]. Indpendent with gait and driving and ADLs. [...] [facility]. Has [...] over obstacles with SBA Positional testing [place] Madie right no nystagmus or vertigo [place] Ashby left no nystagmus or vertigo Horizontal canal [...] making Verónica Dominguez, MAURICIO 05/25/2017 3:59 [place] [address] Ph. [phone] Fax. [phone] I CERTIFY THE NEED FOR THESE SERVICES FURNISHED UNDER THIS PLAN OF TREATMENT AND WHILE UNDER MY CARE. Provider Signature Date of Signature On file (Print/Type provider's name): Kiley Todd MD documented in this encounter Plan of Treatment Not on file documented as of this encounter Visit Diagnoses Not on filedocumented in this encounter Care Teams Lactation Specialist Relationship Specialty Start Date End Date Kiley Todd MD [address] [place] [address] PCP - General Occupational Medicine 05/19/17 08/03/17 documented as of this encounter
--- OUTSIDE RECORDS SUMMARY | 2024-11-23 10:22 | XMS_ITS | Encounter Summary ---
Author Organization [employer] Address [address] [place] [address] Care Team Providers Care Foreign Banknote Teller Name Role Phone Kiley Todd MD Primary Care Provider +1- [phone] Reason for Referral * MRI/CAT Scan (Routine) - Closed Specialty Diagnoses / Procedures Referred By Celine almaguer Referred To Contact Radiology Diagnoses Fall Confusion Weakness Balance problems Procedures MRI BRAIN W WO CONTRAST Kiley Todd MD [address] [place] [address] Phone: tel: fax: Referral ID Status Reason Start Date Expiration Date Visits Re quested Visits Authorized [id number] Closed 06/10/2017 06/10/2018 1 1 Reason for Visit * MRI/CAT Scan (Routine) - Closed Specialty Diagnoses / Procedures Referred By Celine almaguer Referred To Contact Radiology Diagnoses Fall Confusion Weakness Balance problems Procedures MRI BRAIN W WO CONTRAST Kiley Todd MD [address] [place] [address] Phone: tel: fax: Referral ID Status Reason Start Date Expiration Date Visits Re quested Visits Authorized [id number] Closed 06/10/2017 06/10/2018 1 1 Encounter Details Date Type Department Care Team (Latest Contact Info) Description 06/17/2017 1:15 PM CDT - 06/17/2017 11:59 PM CDT Hospital Encounter [facility] [address] [place] [address] Kiley Todd MD [address] [place] [address] Fall; Confusion; Weakness; Balance problems Discharge Disposition: [...] systems documented in this encounter Care Teams Foreign Banknote Teller Relationship Specialty Start Date End Date Kiley Todd MD [address] [place] [address] PCP - General Occupational Medicine 05/19/17 08/03/17 documented as of this encounter
--- OUTSIDE RECORDS SUMMARY | 2024-11-23 10:22 | XMS_ITS | Encounter Summary ---
Author Organization [employer] Address [address] [place] [address] Care Team Providers Care Pmo Lead Name Role Phone Kiley Todd MD Primary Care Provider +1- [phone] Encounter Details Date Type Department Care Team (Latest Contact Info) Description 06/14/2017 3:30 PM CDT - 06/14/2017 11:59 PM CDT Hospital Encounter [facility] [address] [place], [place] [phone] Kiley Todd MD [address] [place], [place] [phone] Discharge Disposition: Home - Discharge to Home [...] CDT) Creatinine 0.76 0.51 - 1.17 mg/dL [facility] Comment:The analysis was per formed using an isotope dilution mass spectrometry (IDMS) traceable methodology. Creatinine Based eGFR >60 >60 [facility] Comment: GFR REFERENCE RANGE: >60 mL/min/1.73m2 -- An eGFR of > than, or = to 60, may indicate normal renal function or mildly decreased GFR. EGFR /[place] >60 >60 [facility] Comment: -- An eGFR of > than, or = to 60, may indicate normal renal function or mildly decreased GFR. Test Performed at [facility], [address]. 06/14/2017 3:30 PM CDT 06/14/2017 5:33 PM CDT us Kiley Todd MD LAB BLOOD ORDERABLES Final Result [facility] [address] [place] [phone] documented in this encounter Visit Diagnoses Not on filedocumented in this encounter Care Teams Pmo Lead Relationship Specialty Start Date End Date Kiley Todd MD [address] [place] [address] PCP - General Occupational Medicine 05/19/17 08/03/17 documented as of this encounter
--- OUTSIDE RECORDS SUMMARY | 2024-11-23 10:22 | XMS_ITS | Encounter Summary ---
Author Organization [employer] Address [address] [place] [address] Care Team Providers Care Textile Engineer Name Role Phone Kiley Todd MD Primary Care Provider +1- [phone] Encounter Details Date Type Department Care Team (Latest Contact Info) Description 06/16/2017 1:56 PM CDT - 06/16/2017 11:59 PM CDT Hospital Encounter [facility] [address] [place] [phone] Enrrique Bragg, PT [address] [...] Kiley Todd MD [address] [place] [address] 06/16/17 1434 General OP therapy treatment number 1 NW Pertinent Medical History OA, L CAROLANN approx 2 years ago, L elbow ORIF, R wrist ORIF, B RC repairs Referring Provider [employer] Insurance - [employer] Insurance/Authorization PN 11/24 2 patient identifiers Yes [...] process fractures L1-3. According to notes from [facility], pt also has stable L3 compression fracture that they are following Mechanism of Injury/Condition Fall at work Prior and Current level of function status Prior: Pt lives in [place] with his . He has been living in [facility] in [place], [place] x 18 months while working here. 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 Was given a brace to wear. Following ortho at [facility] for further management. He reports being instructed by ortho that he may discontinue brace, but he wears it occasionally to control pain. Pain is around 'belt line' bilaterally and c/o burning painto B buttocks. Occasionally gets burning pain that radiates to anterior L thigh and medial L knee. He has also been seen 3 visits at 6W rehab at [facility] for imbalance and dizziness. Pt reports he [...] being followed regarding L3 compression fracture per [facility] notes. Pt would benefit from additional [...] Bragg, PT, DPT 06/17/2017 10:[address] [facility] [address] [place] [address] documented in this encounter Plan of Treatment Not on file documented as of this encounter Visit Diagnoses Not on filedocumented in this encounter Care Teams Textile Engineer Relationship Specialty Start Date End Date Kiley Todd MD [address] [facility] [place] [address] PCP - General Occupational Medicine 05/19/17 08/03/17 documented as of this encounter
--- OUTSIDE RECORDS SUMMARY | 2024-11-23 10:33 | XMS_ITS | Encounter Summary ---
Author Organization [facility] Care Address [address] [place] [address] Phone Care Team Providers Care Dietitian Teaching Name Role Phone Coco Méndez PA-C Primary Care Provider [phone] Reason for Visit * Reason Comments Medication Refill Encounter Details Date Type Department Care Team (Late st Contact Info) Description 05/10/2018 Refill [facility] [address] [place] [phone] Nikko Han, [facility] [address] [place], [place] [phone] Social History Tobacco Use Types Packs/Day Years [...] PATINO * Telephone Encounter - Nikko Han, [facility] - 05/10/2018 4:08 PM CDT [facility] Pain Medication Refill Service - Pharmacist Note [...] There are no unexpected entries on the LINER INSERTER and refill frequency is every 30 days. Opioid agreement signed 01/12/[address] Méndez. Urine Drug Screen: positive 07/09/17 as expected. Respiratory Depression Risk Score >3; anti-depressant and long acting opioid prescribed, hospital and emergency visit within last 6 months and history of opioid abuse Morphine equivalent dose is 105 mg/day. special education tutor is available. Emergency intranasal naloxoneis warranted at this time and is on hand. Prescriptions pended for Dr. Méndez, last visit: 05/02/18; return visit: 06/29/18. Please send orders to [facility] pharmacy for pick-up. Thank you, Zain Han [facility] pharmacy documented in this encounter Plan of [...] of use: As long as needed Video/Handout: [email or web address]-library/qukqedp-ydzc-bltimzspye-tens Pain Management - Exercise Pain Management No Coco Méndez PA-C Note: Exercise: General Aerobic ?? Duration: 3 to 5 days per week for 20 minutes per day ?? Intensity: Moderate Strengthening: neither Back nor General (for widespread pain) nor Shoulder ?? Intensity: Moderate ?? Duration: 2 to 4 days per week ?? Instructions: See attached documentation for details Video/Handout: [email or web address].[email or web address]/health-library/[email or web address]-[email or web address]-[email or web address]-exercise documented as of this encounter Visit Diagnoses Diagnosis Other chronic pain documented in this encounter Additional Health Concerns Assessment Noted Time PHQ-9 Depression Total Score: 3 05/02/20 18 4:27 PM CDT PHQ-2 Depression Total Score: 1 05/02/20 18 4:27 PM CDT documented as of this encounter Care Teams Dietitian Teaching Relationship Specialty Start Date End Date Coco Méndez PA-C [address] [place] [address] PCP - General Physician Pillow Cleaner 02/17/17 12/15/22 documented as of this encounter
--- OUTSIDE RECORDS SUMMARY | 2024-11-23 10:33 | XMS_ITS | Encounter Summary ---
Author Organization [facility] Care Address [address] [place] [address] Phone Care Team Providers Care Database Report Writer Name Role Phone Coco Leos PA-C Primary Care Provider [phone] Provider, No-Primary Care Primary Care Provider Unavailable Encounter Details Date Type Department Care Team (Late st Contact Info) Description 12/06/2018 Pharmacy Visit [facility] [address] [place] [phone] Social History Tobacco Use Types Packs/Day [...] of use: As long as needed Video/Handout: [email or web address].org/health-library/onceyol-vxvm-diyvxkakbk-tens Pain Management - Exercise Pain Management No Coco Leos PA-C Note: Exercise: General Aerobic ?? Duration: 3 to 5 days per week for 20 minutes per day ?? Intensity: Moderate Strengthening: neither Back nor General (for widespread pain) nor Shoulder ?? Intensity: Moderate ?? Duration: 2 to 4 days per week ?? Instructions: See attached documentation for details Video/Handout: [email or web address].org/health-library/ctwlgiu-itad-kpdjwqwpww-exercise documented as of this encounter Visit Diagnoses Not on filedocumented in this encounter Additional Health Concerns Assessment Noted Time PHQ-9 Depression Total Score: 3 05/02/20 18 4:27 PM CDT PHQ-2 Depression Total Score: 1 05/02/20 18 4:27 PM CDT documented as of this encounter Care Teams Database Report Writer Relationship Specialty Start Date End Date Coco Leos PA-C [address] [place], [place] [phone] PCP - General Physician Mailmaster 02/17/17 12/15/22 Provider, No-Primary Care [place] PCP - General 12/16/22 documented as of this encounter
--- OUTSIDE RECORDS SUMMARY | 2024-11-23 10:33 | XMS_ITS | Encounter Summary ---
Author Organization [facility] Care Address [address] [place] [address] Phone Care Team Providers Care Fluxer Name Role Phone Coco Leos PA-C Primary Care Provider [phone] Provider, No-Primary Care Primary Care Provider Unavailable Encounter Details Date Type Department Care Team (Late st Contact Info) Description 06/09/2018 Pharmacy Visit [facility] [address] [place] [phone] Social History Tobacco Use Types Packs/Day [...] long as needed Video/Handout: [email or web address]/health-library/mmkqjjg-hopg-omsxytuoaa-tens Pain Management - Exercise Pain Management No Coco Leos PA-C Note: Exercise: General Aerobic ?? Duration: 3 to 5 days per week for 20 minutes per day ?? Intensity: Moderate Strengthening: neither Back nor General (for widespread pain) nor Shoulder ?? Intensity: Moderate ?? Duration: 2 to 4 days per week ?? Instructions: See attached documentation for details Video/Handout: [email or web address].org/health-library/mclvgvz-rkgv-skdvwaocxj-exercise documented as of this encounter Visit Diagnoses Not on filedocumented in this encounter Additional Health Concerns Assessment Noted Time PHQ-9 Depression Total Score: 3 05/02/20 18 4:27 PM CDT PHQ-2 Depression Total Score: 1 05/02/20 18 4:27 PM CDT documented as of this encounter Care Teams Fluxer Relationship Specialty Start Date End Date Coco Leos PA-C [address] [place], [place] [phone] PCP - General Physician Rn Perioperative 02/17/17 12/15/22 Provider, No-Primary Care [place] PCP - General 12/16/22 documented as of this encounter
--- OUTSIDE RECORDS SUMMARY | 2024-11-23 10:33 | XMS_ITS | Encounter Summary ---
Author Organization [facility] Care Address [address] [place] [address] Phone Care Team Providers Care Diet Tech Name Role Phone Coco Leos PA-C Primary Care Provider [phone] Reason for Visit * Reason Comments Medication Management Pain Encounter Details Date Type Department Care Team (Late st Contact Info) Description 06/06/2018 Telephone [facility] [address] [facility] [address] [place] [address] Coco Leos PA-C [address] [place] [address] Social History Tobacco Use Types [...] for oxycontin 15 mg XR BID to sukmrptb23 mg XR BID. He was given this [...] and antibiotic pump. A nurse, Johanna, from [facility], phone [phone], is visiting three time a weeks to change would vac. Reports that he will have is for six to eight weeks. He was cared for at [facility]. 06/06/2018 10:41 AM Malinda Howard RN, BSN We need to get a copy of these records and I will review and consider medication change. I will need to review OPERATIONAL RISK ANALYST. Coco Leos PA-C, 06/06/2018 12:06 PM Left [...] of use: As long as needed Video/Handout: [email or web address]://[facility] health administrationDelectable/Fosubo/uksficx-xvta-hxlduobeow-tens Pain Management - Exercise Pain Management No Coco Leos PA-C Note: Exercise: General Aerobic ?? Duration: 3 to 5 days per week for 20 minutes per day ?? Intensity: Moderate Strengthening: neither Back nor General (for widespread pain) nor Shoulder ?? Intensity: Moderate ?? Duration: 2 to 4 days per week ?? Instructions: See attached documentation for details Video/Handout: [email or web address] administrationDelectable/Fosubo/vcxjcqk-lbnn-vwcnmcuwgx-exercise documented as of this encounter Visit Diagnoses Not on filedocumented in this encounter Additional Health Concerns Assessment Noted Time PHQ-9 Depression Total Score: 3 05/02/20 18 4:27 PM CDT PHQ-2 Depression Total Score: 1 05/02/20 18 4:27 PM CDT documented as of this encounter Care Teams Diet Tech Relationship Specialty Start Date End Date Coco Leos PA-C [address] [place], [place] [phone] PCP - General Physician Preforming Machine Operator 02/17/17 12/15/22 documented as of this encounter
--- OUTSIDE RECORDS SUMMARY | 2024-11-23 10:33 | XMS_ITS | Encounter Summary ---
Author Organization [facility] Care Address [address] [place] [address] Phone Care Team Providers Care Application Development Intern Name Role Phone Coco Leos PA-C Primary Care Provider [phone] Reason for Visit * Reason Comments Other schedule Encounter Details Date Type Department Care Team (Late st Contact Info) Description 09/24/2022 Telephone [facility] Medicine [address] [facility] [address] [place] [address] Coco Leos PA-C [address] [place] [address] Social History Tobacco Use Types [...] Po Perez RN - 09/24/2022 8:52 AM MANAGER OF MERCHANDISING 09/24/2022 Message from Edilberto Hawley who called about an appt to help with pain shots . He was last seen as pt here in [facility] in April 2018. Return call to Edilberto, no answer. General message left on an unidentified voicemail that he would call the clinic schedulers but would have to re-establish as a new pt due to time of last visit. Number provided. Fritz Perez RN 8:55 AM 09/24/2022 GER OF MERCHANDISING documented in this encounter Plan of Treatment [...] use: As long as needed Video/Handout: https://[facility] hospitalLxDATA/[employer]/texpdbq-xazx-cgjpmoplzq-tens Pain Management - Exercise Pain Management No Coco Leos PA-C Note: Exercise: General Aerobic ?? Duration: 3 to 5 days per week for 20 minutes per day ?? Intensity: Moderate Strengthening: neither Back nor General (for widespread pain) nor Shoulder ?? Intensity: Moderate ?? Duration: 2 to 4 days per week ?? Instructions: See attached documentation for details Video/Handout: [email or web address]://[facility] hospitalLxDATA/[employer]-carpooling.com/hzcvnht-zxfp-cjjbmxbnkk-exercise documented as of this encounter Visit Diagnoses Not on filedocumented in this encounter Additional Health Concerns Assessment Noted Time PHQ-9 Depression Total Score: 3 05/02/20 18 4:27 PM CDT PHQ-2 Depression Total Score: 1 05/02/20 18 4:27 PM CDT documented as of this encounter Care Teams Application Development Intern Relationship Specialty Start Date End Date Coco Leos PA-C [address] [place] [address] PCP - General Physician Elementary Supervisor 02/17/17 12/15/22 documented as of this encounter
--- OUTSIDE RECORDS SUMMARY | 2024-11-23 10:33 | XMS_ITS | Encounter Summary ---
Author Organization [facility] Care Address [address] [place] [address] Phone Care Team Providers Care Bar Gauger And Lubricator Tender Name Role Phone Coco Leos PA-C Primary Care Provider [phone] Provider, No-Primary Care Primary Care Provider Unavailable Encounter Details Date Type Department Care Team (Late st Contact Info) Description 07/13/2018 Pharmacy Visit RX [facility] [address] [place] [phone] Social History Tobacco Use Types Packs/Day [...] of use: As long as needed Video/Handout: https://[facility].org/health-library/anyrnlf-ejmh-wuonvswclj-tens Pain Management - Exercise Pain Management No Coco Leos PA-C Note: Exercise: General Aerobic ?? Duration: 3 to 5 days per week for 20 minutes per day ?? Intensity: Moderate Strengthening: neither Back nor General (for widespread pain) nor Shoulder ?? Intensity: Moderate ?? Duration: 2 to 4 days per week ?? Instructions: See attached documentation for details Video/Handout: https://[facility].org/health-library/dljmliq-zmef-eelbutraum-exercise documented as of this encounter Visit Diagnoses Not on filedocumented in this encounter Additional Health Concerns Assessment Noted Time PHQ-9 Depression Total Score: 3 05/02/20 18 4:27 PM CDT PHQ-2 Depression Total Score: 1 05/02/20 18 4:27 PM CDT documented as of this encounter Care Teams Bar Gauger And Lubricator Tender Relationship Specialty Start Date End Date Coco Leos PA-C [address] [place], [place] [phone] PCP - General Physician Creative Coordinator 02/17/17 12/15/22 Provider, No-Primary Care [place] PCP - General 12/16/22 documented as of this encounter
--- OUTSIDE RECORDS SUMMARY | 2024-11-23 10:33 | XMS_ITS | Encounter Summary ---
Author Organization [facility] Care Address [address] [place] [address] Phone Care Team Providers Care Gui Developer Name Role Phone Coco Leos PA-C Primary Care Provider [phone] Provider, No-Primary Care Primary Care Provider Unavailable Encounter Details Date Type Department Care Team (Late st Contact Info) Description 11/21/[address] [facility] [address] [place] [phone] Social History Tobacco Use Types Packs/Day [...] of use: As long as needed Video/Handout: [email or web address]://[facility].org/health-library/eflxrlo-lgnk-dmoedaalqg-tens Pain Management - Exercise Pain Management No Coco Leos PA-C Note: Exercise: General Aerobic ?? Duration: 3 to 5 days per week for 20 minutes per day ?? Intensity: Moderate Strengthening: neither Back nor General (for widespread pain) nor Shoulder ?? Intensity: Moderate ?? Duration: 2 to 4 days per week ?? Instructions: See attached documentation for details Video/Handout: https://[facility].org/health-library/vahzjmi-ryzp-bycbwjkveg-exercise documented as of this encounter Visit Diagnoses Not on filedocumented in this encounter Additional Health Concerns Assessment Noted Time PHQ-9 Depression Total Score: 3 05/02/20 18 4:27 PM CDT PHQ-2 Depression Total Score: 1 05/02/20 18 4:27 PM CDT documented as of this encounter Care Teams Gui Developer Relationship Specialty Start Date End Date Coco Leos PA-C [address] [place], [place] [phone] PCP - General Physician Head Pastry Chef 02/17/17 12/15/22 Provider, No-Primary Care [place] PCP - General 12/16/22 documented as of this encounter
--- OUTSIDE RECORDS SUMMARY | 2024-11-23 10:33 | XMS_ITS | Encounter Summary ---
Author Organization [facility] Care Address [address] [place] [address] Phone Care Team Providers Care Shape Hand Name Role Phone Coco Leos PA-C Primary Care Provider [phone] Provider, No-Primary Care Primary Care Provider Unavailable Reason for Visit * Reason Comments Medication Refill Encounter Details Date Type Department Care Team (Late st Contact Info) Description 06/08/2018 Refill [facility] [address] [address] [place] [phone] Maxine Pope [address] [place] [address] Social History Tobacco Use Types [...] Leos PA-C - 06/08/2018 12:42 PM CDT [facility] Pain Medication Refill Service - Pharmacist's Note: [...] 05/11. There are unexpected entries on the WET TRIMMER: 05/21 MS CR 30mg, #14/7ds Yifan Portillo, [place] 05/21 OC/APAP 5/325mg, #40/7ds Jovana Griffith Refill [...] MELECIO) Morphine equivalent dose is 90 mg/day. lead teller is available. Emergency intranasal naloxone is warranted and on hand at this time. Prescriptions pended for Coco Leos PA-C, last visit: 05/02; return visit: 06/29. Please send orders to [facility] pharmacy for [employer]. Thank you, Maxine Pope, Cristina, [facility], BCACP 06/08/2018, 1:26 PM Requesting a refill of: Oxycodone 15mg Last Visit: 05/02/18 Future Appointments: 06/29/18 Last Fill Date: 05/11/18 Pharmacy Fax #: SUK[facility] Pt requested change to long acting morphine [...] long as needed Video/Handout: https://[facility].[employer]/Socogamelibrary/vjduhlu-bvlm-wncndtnrmf-tens Pain Management - Exercise Pain Management No Coco Leos PA-C Note: Exercise: General Aerobic ?? Duration: 3 to 5 days per week for 20 minutes per day ?? Intensity: Moderate Strengthening: neither Back nor General (for widespread pain) nor Shoulder ?? Intensity: Moderate ?? Duration: 2 to 4 days per week ?? Instructions: See attached documentation for details Video/Handout: https://[facility].[employer]/Socogamelibrary/pacpajl-ulms-fdkldcowoq-exercise documented as of this encounter Visit Diagnoses Diagnosis Staphylococcal arthritis of ankle, unspecified laterality (HCC)- Primary Other chronic pain documented in this encounter Additional Health Concerns Assessment Noted Time PHQ-9 Depression Total Score: 3 05/02/20 18 4:27 PM CDT PHQ-2 Depression Total Score: 1 05/02/20 18 4:27 PM CDT documented as of this encounter Care Teams Shape Hand Relationship Specialty Start Date End Date Coco Leos PA-C [address] [place] [phone] PCP - General Physician Warehouse Assistant 02/17/17 12/15/22 Provider, No-Primary Care [place] PCP - General 12/16/22 documented as of this encounter
--- OUTSIDE RECORDS SUMMARY | 2024-11-23 10:33 | XMS_ITS | Encounter Summary ---
Author Organization [facility] Care Address [address] [place] [address] Phone Care Team Providers Care Network Support Manager Name Role Phone Coco Leos PA-C Primary Care Provider [phone] Provider, No-Primary Care Primary Care Provider Unavailable Encounter Details Date Type Department Care Team (Late st Contact Info) Description 09/15/2018 Pharmacy Visit RX [facility] [address] [place] [phone] Social History Tobacco Use Types Packs/Day [...] use: As long as needed Video/Handout: https://[facility].org/health-library/hqofmwa-unzs-lwrlzzweuo-tens Pain Management - Exercise Pain Management No Coco Leos PA-C Note: Exercise: General Aerobic ?? Duration: 3 to 5 days per week for 20 minutes per day ?? Intensity: Moderate Strengthening: neither Back nor General (for widespread pain) nor Shoulder ?? Intensity: Moderate ?? Duration: 2 to 4 days per week ?? Instructions: See attached documentation for details Video/Handout: https://[facility].org/health-library/gezgyss-zkji-gsfmgjxgxd-exercise documented as of this encounter Visit Diagnoses Not on filedocumented in this encounter Additional Health Concerns Assessment Noted Time PHQ-9 Depression Total Score: 3 05/02/20 18 4:27 PM CDT PHQ-2 Depression Total Score: 1 05/02/20 18 4:27 PM CDT documented as of this encounter Care Teams Network Support Manager Relationship Specialty Start Date End Date Coco Leos PA-C [address] [place], [place] [phone] PCP - General Physician Retail Security Professional 02/17/17 12/15/22 Provider, No-Primary Care [place] PCP - General 12/16/22 documented as of this encounter
--- OUTSIDE RECORDS SUMMARY | 2024-11-23 10:33 | XMS_ITS | Clinical Summary ---
Author Organization [facility] Care Address [address] [place] [address] Phone Care Team Providers Care Flight Control Tower Operator Name Role Phone Provider, No-Primary Care Primary Care Provider Unavailable Source Comments This disclosure is being made pursuant to the Care Everywhere program,applicable federal and state laws, and may not contain all informationavailable regarding this patient.[facility] and [facility] Practices Allergies No known active allergies Medications omeprazole 20 mg enteric coated capsule Take 20 mg by mouth daily. Active cholecalciferol (VITAMIN D3) 2,000 unit capsule Take 2,000 Units by mouth daily. Active lidocaine 5 % ointmentIndicat ions:Low back pain with radiation, right Apply topically 2 times daily as needed. 35.44 g 11 01/12/2017 5:22 PM WELDER GAS 01/12/20 17 Active Additional Information Patient not [...] times daily. 60 capsule 01/11/2018 4:27 PM WELDER GAS 01/07/20 18 Active diclofenac 1 % topical gelIndications: Arthritis Apply 4 grams topically 3 times daily. 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 He describes hitting his back on the way down, and landing on his head. He was seen at [facility] in [place]. CT of the lumbar spine on 04/16/2017 was reported as mildly displaced acute fractures of the right L1, L2, and L3 transverse processes. No vertebral body fractures are identified. Multilevel degenerative changes. No critical spinal canal narrowing. Multilevel foraminal narrowing is seen, most pronounced on the right at the L5-S1 where it is likely severe. [employer] provided a custom back brace. Xrays on 04/19/2017 were reported as new superior endplate compression deformity at L3, compared to prior MRI, similar mild retrolisthesis of L2 on L3. He has a history of back pain with right lower extremity radicular pain and had epidural steroid injections that were very helpful. He was seen at [facility] emergency department on 07/25/2016 with a three-day history of right sided thoracic back pain, worse with movements and deep breaths, first noted after hitting his back on a coat rack at work when going from working on his knees to standing. He established care with [facility] internal medicine and receives Oxycodone/acetaminophen 10/325 [...] he had fallen on his buttocks at [employer] the previous day with increased pain to his lower back. Problem Noted Date Diagnosed Date Low back pain 09/29/2017 Closed fracture of transvers e process of lumbar vertebra with routine healing 05/19/2017 Encounter related to worker' s compensation claim 04/16/2017 Back 05/11/2017 snf current use of opiate analgesic 2016 Health [...] 017 Lipid Disorder Screening 05/02/2023 05/02/2018, 12/17 MOECO-HCLQ-YbG-2 Vaccine ( season) 2024 Influenza Vaccine: Seasonal [...] of use: As long as needed Video/Handout: https://[facility].[employer]volver/Takipi/ezwwhgo-ynlp-ahewbnuikc-tens Pain Management - Exercise Pain Management Ccoo Vega PA-C Note: Exercise: General Aerobic ?? Duration: 3 to 5 days per week for 20 minutes per day ?? Intensity: Moderate Strengthening: neither Back nor General (for widespread pain) nor Shoulder ?? Intensity: Moderate ?? Duration: 2 to 4 days per week ?? Instructions: See attached documentation for details Video/Handout: https://[facility].[employer]/Takipi/tbpgdmt-lidp-ztsctukfao-exercise Procedures Procedure Name Priority Date/Time Associated Diagnosis [...] ORDERABLES Final R esult [facility] [address] [address] * (ABNORMAL) LIPID PANEL (05/02/2018 2:45 PM [...] Hospital de Phone Number [facility] [address] [address] * ABSTRACTED BY BILLING STAFF (05/11/2017 10:41 [...] over 2 days) Yana Barrera MD Clinical Upper Leather Cutter Department of Internal Medicine Division of Gastroenterology and Hepatology [address] [place] , [address] [place] [address] Fax [email or web address] Addendum after Pathology Evaluation: 05/11/2017 10:40 AM Pathology: 3-10 tubular adenomas Repeat colonoscopy: Based on these results, I recommend a repeat colonoscopy in 1 year. Results disclosed by: Mail Results for orders placed or performed in visit on 05/03/17 SURGICAL PATHOLOGY EXAM Result Value Ref Range Case Report ?Surgical Pathology ?Case: [id number] ? Authorizing Provider: ??Yana Sweeney MD ? [...] Negative Negative 04/09/2017 9:42 PM CDT [facility] Blood specimen (specimen) Venipuncture / Unknown 04/09/2017 5:05 PM CDT 04/09/2017 5:17 PM CDT us Coco Leos PA-C CHEMISTRY ORDERABLES Final R esult Performing Organization Address City/State/[facility] Co de Phone Number [facility] [address] [place] [address] from Last 3 Months or Most Recently Relevant to Health Maintenance Insurance [employer] MEDICARE ADVANTAGE BITUM[employer] INS [place] Care Teams Flight Control Tower Operator Relationship Specialty Start Date End Date Provider, No-Primary Care [place] PCP - General 12/16/22
--- OUTSIDE RECORDS SUMMARY | 2024-11-23 10:33 | XMS_ITS | Encounter Summary ---
Author Organization [facility] Care Address [address] [place] [address] Phone Care Team Providers Care Production Administrative Assistant Name Role Phone Coco Leos PA-C Primary Care Provider [phone] Provider, No-Primary Care Primary Care Provider Unavailable Encounter Details Date Type Department Care Team (Late st Contact Info) Description 05/11/2018 Pharmacy Visit RX [facility] [address] [place] [phone] Social History Tobacco Use Types Packs/Day [...] of use: As long as needed Video/Handout: https://[facility].org/health-library/irnczoi-orxz-mrgtsjnufi-tens Pain Management - Exercise Pain Management No Coco Leos PA-C Note: Exercise: General Aerobic ?? Duration: 3 to 5 days per week for 20 minutes per day ?? Intensity: Moderate Strengthening: neither Back nor General (for widespread pain) nor Shoulder ?? Intensity: Moderate ?? Duration: 2 to 4 days per week ?? Instructions: See attached documentation for details Video/Handout: https://[facility].org/health-library/likhvrs-ltsi-mavefmqsdk-exercise documented as of this encounter Visit Diagnoses Not on filedocumented in this encounter Additional Health Concerns Assessment Noted Time PHQ-9 Depression Total Score: 3 05/02/20 18 4:27 PM CDT PHQ-2 Depression Total Score: 1 05/02/20 18 4:27 PM CDT documented as of this encounter Care Teams Production Administrative Assistant Relationship Specialty Start Date End Date Coco Leos PA-C [address] [place], [place] [phone] PCP - General Physician Housekeeping/Laundry 02/17/17 12/15/22 Provider, No-Primary Care [place] PCP - General 12/16/22 documented as of this encounter
--- OUTSIDE RECORDS SUMMARY | 2024-11-23 10:33 | XMS_ITS | Encounter Summary ---
Author Organization [facility] Care Address [address] [place] [address] Phone Care Team Providers Care Precision Machining Instructor Name Role Phone Coco Leos PA-C Primary Care Provider [phone] Provider, No-Primary Care Primary Care Provider Unavailable Encounter Details Date Type Department Care Team (Late st Contact Info) Description 06/08/2018 Pharmacy Visit RX [facility] [address] [place] [phone] Social History Tobacco Use Types Packs/Day [...] As long as needed Video/Handout: https://[facility].org/health-library/zddtsgl-zedp-siacagbbcl-tens Pain Management - Exercise Pain Management No Coco Leos PA-C Note: Exercise: General Aerobic ?? Duration: 3 to 5 days per week for 20 minutes per day ?? Intensity: Moderate Strengthening: neither Back nor General (for widespread pain) nor Shoulder ?? Intensity: Moderate ?? Duration: 2 to 4 days per week ?? Instructions: See attached documentation for details Video/Handout: [email or web address]://[facility].org/health-library/gfhqimf-ygvm-tmfdrhzkqa-exercise documented as of this encounter Visit Diagnoses Not on filedocumented in this encounter Additional Health Concerns Assessment Noted Time PHQ-9 Depression Total Score: 3 05/02/20 18 4:27 PM CDT PHQ-2 Depression Total Score: 1 05/02/20 18 4:27 PM CDT documented as of this encounter Care Teams Precision Machining Instructor Relationship Specialty Start Date End Date Coco Leos PA-C [address] [place], [place] [phone] PCP - General Physician Diesel Technician Mechanic 02/17/17 12/15/22 Provider, No-Primary Care [place] PCP - General 12/16/22 documented as of this encounter
--- OUTSIDE RECORDS SUMMARY | 2024-11-23 10:33 | XMS_ITS | Encounter Summary ---
Author Organization [facility] Care Address [address] [place] [address] Phone Care Team Providers Care Bowling Ball Weigher And Packer Name Role Phone Coco Leos PA-C Primary Care Provider [phone] Provider, No-Primary Care Primary Care Provider Unavailable Encounter Details Date Type Department Care Team (Late st Contact Info) Description 06/10/2018 Pharmacy Visit RX [facility] [address] [place] [phone] Social History Tobacco Use Types Packs/Day [...] as needed Video/Handout: https://[facility].org/health-library/mcvdhhk-htzx-etyqozbfcy-tens Pain Management - Exercise Pain Management No Coco Leos PA-C Note: Exercise: General Aerobic ?? Duration: 3 to 5 days per week for 20 minutes per day ?? Intensity: Moderate Strengthening: neither Back nor General (for widespread pain) nor Shoulder ?? Intensity: Moderate ?? Duration: 2 to 4 days per week ?? Instructions: See attached documentation for details Video/Handout: https://[facility].org/health-library/ezcwyay-vbff-umcaprhkzy-exercise documented as of this encounter Visit Diagnoses Not on filedocumented in this encounter Additional Health Concerns Assessment Noted Time PHQ-9 Depression Total Score: 3 05/02/20 18 4:27 PM CDT PHQ-2 Depression Total Score: 1 05/02/20 18 4:27 PM CDT documented as of this encounter Care Teams Bowling Ball Weigher And Packer Relationship Specialty Start Date End Date Coco Leos PA-C [address] [place], [place] [phone] PCP - General Physician Credit And Collection Manager 02/17/17 12/15/22 Provider, No-Primary Care [place] PCP - General 12/16/22 documented as of this encounter
--- OUTSIDE RECORDS SUMMARY | 2024-11-23 10:33 | XMS_ITS | Referral Summary ---
Author Organization [facility] Care Address [address] [place] [address] Phone Care Team Providers Care Database Administration Associate Name Role Phone Provider, No-Primary Care Primary Care Provider Unavailable Source Comments This disclosure is being made pursuant to the Care Everywhere program,applicable federal and state laws, and may not contain all informationavailable regarding this patient.[facility] Practices Allergies No known active allergies Medications omeprazole 20 mg enteric coated capsule Take 20 mg by mouth daily. Active cholecalciferol (VITAMIN D3) 2,000 unit capsule Take 2,000 Units by mouth daily. Active lidocaine 5 % ointmentIndicat ions:Low back pain with radiation, right Apply topically 2 times daily as needed. 35.44 g 11 01/12/2017 5:22 PM FAGOTING MACHINE OPERATOR 01/12/20 17 Active Additional Information Patient not [...] times daily. 60 capsule 01/11/2018 4:27 PM FAGOTING MACHINE OPERATOR 01/07/20 18 Active diclofenac 1 % topical gelIndications: Arthritis Apply 4 grams topically 3 times daily. 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 He describes hitting his back on the way down, and landing on his head. He was seen at [facility] in [place]. CT of the lumbar spine on 04/16/2017 was reported as mildly displaced acute fractures of the right L1, L2, and L3 transverse processes. No vertebral body fractures are identified. Multilevel degenerative changes. No critical spinal canal narrowing. Multilevel foraminal narrowing is seen, most pronounced on the right at the L5-S1 where it is likely severe. [employer] provided a custom back brace. Xrays on 04/19/2017 were reported as new superior endplate compression deformity at L3, compared to prior MRI, similar mild retrolisthesis of L2 on L3. He has a history of back pain with right lower extremity radicular pain and had epidural steroid injections that were very helpful. He was seen at [facility] emergency department on 07/25/2016 with a three-day history of right sided thoracic back pain, worse with movements and deep breaths, first noted after hitting his back on a coat rack at work when going from working on his knees to standing. He established care with [facility] internal medicine and receives Oxycodone/acetaminophen 10/325 [...] he had fallen on his buttocks at [employer] the previous day with increased pain [...] long as needed Video/Handout: https://[facility]/Mango-Mate/oiavabh-vyxy-oqgwlukcfi-tens Pain Management - Exercise Pain Management No Coco Leos PA-C Note: Exercise: General Aerobic ?? Duration: 3 to 5 days per week for 20 minutes per day ?? Intensity: Moderate Strengthening: neither Back nor General (for widespread pain) nor Shoulder ?? Intensity: Moderate ?? Duration: 2 to 4 days per week ?? Instructions: See attached documentation for details Video/Handout: https://[facility]/Mango-Mate/devlxyk-leoq-nmyrgbocrh-exercise Procedures Procedure Name Priority Date/Time Associated Diagnosis [...] ORDERABLES Final R esult [facility] [address] [address] * (ABNORMAL) LIPID PANEL (05/02/2018 2:45 PM [...] ORDERABLES Final R esult Performing Organization Address City/State/[facility] Co de Phone Number [facility] [address] [address] * ABSTRACTED BY BILLING STAFF (05/11/2017 10:41 [...] over 2 days) Yana Barrera MD Clinical Pattern Cleaner Department of Internal Medicine Division of Gastroenterology and Hepatology [address] [place] , [address] [phone] Fax [email or web address] Addendum after Pathology Evaluation: 05/11/2017 10:40 AM Pathology: 3-10 tubular adenomas Repeat colonoscopy: Based on these results, I recommend a repeat colonoscopy in 1 year. Results disclosed by: Mail Results for orders placed or performed in visit on 05/03/17 SURGICAL PATHOLOGY EXAM Result Value Ref Range Case Report ?Surgical Pathology ?Case: [id number] ? Authorizing Provider: ??Yana Sweeney MD ? [...] Antibody Negative Negative 04/09/2017 9:42 PM CDT [facility] Blood specimen (specimen) Venipuncture / Unknown 04/09/2017 5:05 PM CDT 04/09/2017 5:17 PM CDT Coco Leos PA-C CHEMISTRY ORDERABLES Final R esult [facility] [address] [place] [address] from Last 3 Months or Most Recently Relevant to Health Maintenance Insurance [facility] MEDICARE ADVANTAGE BITUMINOUS INS [place] Care Teams Database Administration Associate Relationship Specialty Start Date End Date Provider, No-Primary Care [place] PCP - General 12/16/22
--- OUTSIDE RECORDS SUMMARY | 2024-11-23 10:34 | XMS_ITS | Encounter Summary ---
Author Organization [facility] Care Address [address] [place] [address] Phone Care Team Providers Care Supervisory It Specialist Name Role Phone Coco Leos PA-C Primary Care Provider [phone] Reason for Visit * Reason Comments Follow-up 2 mo f/u 45 min, c hronic pain/depression Encounter Details Date Type Department Care Team (Late st Contact Info) Description 05/02/2018 1:30 PM CDT Office Visit [facility] [address] [place] [phone] [address] [place] [address] [place], [place] [phone] Coco Leos PA-C [address] [place], [place] [phone] Social History Tobacco Use Types Packs/Day Years [...] feeling strong, but comfortable. Images Courtesy of [employer] Tens Algolux www.Radius To stop treatment 1. Make sure the [...] soft cloth. o Do not use chemical alpine guide o Do not use rubbing alcohol o [...] and electrode patches can be found on foc.us and MEDSEEK??? websites, as well Zomazzt local retailers and medical supply stores. You [...] use to track activity. These include Fitbit??, GarPromoteU pedometers and the JustGo??. If you have a smartphone, there are downloadable apps such as Nuvola Systems, uTrack TV and the RallyPoint marianna. All of these options will track [...] Daily 2. Pectoral stretch (3 positions) a. lead manufacturing engineering tech a doorway and place your hands on [...] presents to the Department of Family Medicine [facility] for hospital follow up. He was seen [...] drinks a lot of water. Moved to [place] with grandson, helping to maintain property with [...] worker's compensation claim 04/16/2017 Back 05/11/2017 ??? rn long term care current use of opiate analgesic 05/11/2017 ??? [...] History Narrative Mr. 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 This was the first change in his [...] he did have a Brain MRI through [facility] in [facility] it was normal. He also complted neuropsych eval which felt he was back to baseline. The psychologist performing his neuropsych evaluation felt he had significant depression. He started duloxetine in September, symptoms unchanged at October follow up and dose was increased to 40 mg. The following week, he presented to his work [employer] appt and was sent to the [...] with: betito Return Reason: chronic pain, LUTS, Journeyman Patternmaker Needed (specify language)? Jill Leos PA-C [facility] [address] [place] [address] documented in this encounter Plan of Treatment [...] As long as needed Video/Handout: https://[facility].org/health-library/vhfvsmv-epvl-ycynqmpujl-tens Pain Management - Exercise Pain Management Coco Vega PA-C Note: Exercise: General Aerobic ?? Duration: 3 to 5 days per week for 20 minutes per day ?? Intensity: Moderate Strengthening: neither Back nor General (for widespread pain) nor Shoulder ?? Intensity: Moderate ?? Duration: 2 to 4 days per week ?? Instructions: See attached documentation for details Video/Handout: https://[facility].org/health-library/eywxuyt-bbrt-bnfgwnygev-exercise documented as of this encounter Procedures Procedure [...] Final R esult Performing Organization Address [facility]/ZIP Co de Phone Number [facility] [address] [address] * (ABNORMAL) LIPID PANEL (05/02/2018 2:45 PM [...] Final R esult Performing Organization Address [facility] Co de Phone Number [facility] [address] [address] * (ABNORMAL) DRUGS OF ABUSE - URINE (05/02/2018 2:45 PM CDT) Amphetamines - Urine Negative Negative 05/02/2018 5:40 PM CDT [facility] Comment: Test cut-off: 1000 ng/mL for d-methamphetamine. Benzodiazepines - Urine Negative Negative 05/02/2018 5:40 PM CDT [facility] Comment: Test cut-off: ??100 ng/mL Cocaine - Urine Negative Negative 8 5:40 PM CDT [facility] Comment: Test cut-off: ??300 ng/mL Opiates - Urine Negative Negative 8 5:40 PM CDT [facility] Comment: Test cut-off: ??300 ng/mL for morphine Oxycodone - Urine Presumptive Positive(A) Negative 05/02/2018 5:40 PM CDT [facility] Comment: Test cut-off: ??300 ng/mL Amphetamines assay cross-reacts well with amphetamine and methamphetamine, as well as the junior designer amphetamines MDMA ( Ecstasy ), MDA, [...] 75,000 ng/mL). Please see Laboratory Services Handbook (http://healthcare.[facility]/path_handbook.index.html) for more detailed information on assay cross-reactivity. Drug of abuse screening tests are to be used for medical purposes only and not for non-medical purposes (e.g., employee, oven stripper, or forensic testing). Urine specimen (specimen) 05/02/2018 2:45 PM CDT 05/02/2018 2:51 PM CDT us Coco Leos PA-C RANDOM URINE Final Result [facility] [place] [address] * COMPREHENSIVE METABOLIC PANEL (CMP) (05/02/2018 2:45 [...] ORDERABLES Final R esult Performing Organization Address City/State/[facility] Co de Phone Number [facility] [address] [address] documented in this encounter Visit Diagnoses Diagnosis [...] as of this encounter Care Teams Supervisory It Specialist Relationship Specialty Start Date End Date Coco Leos PA-C [address] [place] [address] PCP - General Physician Chief Fishery Division 02/17/17 12/15/22 documented as of this encounter
--- OUTSIDE RECORDS SUMMARY | 2024-11-23 10:34 | XMS_ITS | Encounter Summary ---
Author Organization [facility] Care Address [address] [place] [address] Phone Care Team Providers Care Electrical Engineering Technician Name Role Phone Coco Leos PA-C Primary Care Provider [phone] Provider, No-Primary Care Primary Care Provider Unavailable Encounter Details Date Type Department Care Team (Late st Contact Info) Description 04/29/2018 Pharmacy Visit RX [facility] [address] [place] [phone] Social History Tobacco Use Types Packs/Day [...] of use: As long as needed Video/Handout: https://[facility].org/health-library/aeirnkc-uvqd-eylioeeujk-tens Pain Management - Exercise Pain Management No Coco Leos PA-C Note: Exercise: General Aerobic ?? Duration: 3 to 5 days per week for 20 minutes per day ?? Intensity: Moderate Strengthening: neither Back nor General (for widespread pain) nor Shoulder ?? Intensity: Moderate ?? Duration: 2 to 4 days per week ?? Instructions: See attached documentation for details Video/Handout: https://[facility].org/health-library/cwvwhrx-buws-nqepfkqvja-exercise documented as of this encounter Visit Diagnoses Not on filedocumented in this encounter Additional Health Concerns Assessment Noted Time PHQ-9 Depression Total Score: 14 018 12:18 PM OUTPATIENT CODER PHQ-2 Depression Total Score: 5 01/07/20 18 12:18 PM OUTPATIENT CODER documented as of this encounter Care Teams Electrical Engineering Technician Relationship Specialty Start Date End Date Coco Leos PA-C [address] [place] [address] PCP - General Physician Director Law Enforcement 02/17/17 12/15/22 Provider, No-Primary Care [place] PCP - General 12/16/22 documented as of this encounter
--- OUTSIDE RECORDS SUMMARY | 2024-11-23 10:34 | XMS_ITS | Encounter Summary ---
Author Organization [facility] Care Address [address] [place] [address] Phone Care Team Providers Care Radiologic Technology Instructor Name Role Phone Coco Leos PA-C Primary Care Provider [phone] Provider, No-Primary Care Primary Care Provider Unavailable Encounter Details Date Type Department Care Team (Late st Contact Info) Description 04/05/2018 Pharmacy Visit RX [facility] [address] [place] [phone] Social History Tobacco Use Types Packs/Day [...] Depression Total Score: 14 018 12:18 PM BURIAL VAULT MAKER PHQ-2 Depression Total Score: 5 01/07/20 18 12:18 PM BURIAL VAULT MAKER documented as of this encounter Care Teams Radiologic Technology Instructor Relationship Specialty Start Date End Date Coco Leos PA-C [address] [place], [place] [phone] PCP - General Physician Investment Representative 02/17/17 12/15/22 Provider, No-Primary Care [place] PCP - General 12/16/22 documented as of this encounter
--- OUTSIDE RECORDS SUMMARY | 2024-11-23 10:34 | XMS_ITS | Encounter Summary ---
Author Organization [facility] Care Address [address] [place] [address] Phone Care Team Providers Care Rn Case Manager Name Role Phone Coco Leos PA-C Primary Care Provider [phone] Provider, No-Primary Care Primary Care Provider Unavailable Encounter Details Date Type Department Care Team (Late st Contact Info) Description 04/06/2018 Pharmacy Visit RX [facility] [address] [place] [phone] Social History Tobacco Use Types Packs/Day [...] Depression Total Score: 14 018 12:18 PM CASTING MACHINE ADJUSTER PHQ-2 Depression Total Score: 5 01/07/20 18 12:18 PM CASTING MACHINE ADJUSTER documented as of this encounter Care Teams Rn Case Manager Relationship Specialty Start Date End Date Coco Leos PA-C [address] [place], [place] [phone] PCP - General Physician Business Analytics Director 02/17/17 12/15/22 Provider, No-Primary Care [place] PCP - General 12/16/22 documented as of this encounter
--- OUTSIDE RECORDS SUMMARY | 2024-11-23 10:34 | XMS_ITS | Encounter Summary ---
Author Organization [facility] Care Address [address] [place] [address] Phone Care Team Providers Care Janitorial Maintenance Worker Name Role Phone Coco Leos PA-C Primary Care Provider [phone] Provider, No-Primary Care Primary Care Provider Unavailable Reason for Visit * Reason Comments Med Request Encounter Details Date Type Department Care Team (Late st Contact Info) Description 05/03/2018 [facility] - ON LICENSE OF [facility] - Procedure Unit [address] [phone] Ivy Burr [address] [place] [address] Social History Tobacco Use Types [...] long as needed Video/Handout: https://[facility]/ProZymelibrary/lwlineo-owgx-cclorddzdv-tens Pain Management - Exercise Pain Management No Coco Leos PA-C Note: Exercise: General Aerobic ?? Duration: 3 to 5 days per week for 20 minutes per day ?? Intensity: Moderate Strengthening: neither Back nor General (for widespread pain) nor Shoulder ?? Intensity: Moderate ?? Duration: 2 to 4 days per week ?? Instructions: See attached documentation for details Video/Handout: https://[facility]/PIE Software/ytwofou-vykc-pasbyhfeia-exercise documented as of this encounter Visit Diagnoses Diagnosis Colon cancer screening- Primary Special screening for malignant neoplasms, colon documented in this encounter Additional Health Concerns Assessment Noted Time PHQ-9 Depression Total Score: 3 05/02/20 18 4:27 PM CDT PHQ-2 Depression Total Score: 1 05/02/20 18 4:27 PM CDT documented as of this encounter Care Teams Janitorial Maintenance Worker Relationship Specialty Start Date End Date Coco Leos PA-C [address] [place] [address] PCP - General Physician Pipe Setter 02/17/17 12/15/22 Provider, No-Primary Care [place] PCP - General 12/16/22 documented as of this encounter
--- OUTSIDE RECORDS SUMMARY | 2024-11-23 10:34 | XMS_ITS | Encounter Summary ---
Author Organization [facility] Care Address [address] [place] [address] Phone Care Team Providers Care Glove Machine Operator Name Role Phone Coco Leos PA-C Primary Care Provider [phone] Reason for Visit * Reason Comments Medication Refill Encounter Details Date Type Department Care Team (Late st Contact Info) Description 04/05/2018 Refill [facility] [address] [place] [phone] Maxine Pope [address] [place] [address] Social History Tobacco Use Types [...] There are no unexpected entries on the FORMULATION SCIENTIST and refill frequency is every 30 days. Opioid agreement signed 01/12/17 with Coco Leos PA-C. Urine Drug Screen: 07/09/17 confirmed (+) OC, OM & metabolites, as expected Respiratory Depression Risk Score 3; anti-depressant and long acting opioid prescribed and history of opioid abuse (hx/o MAMP, MELECIO) Morphine equivalent dose is 135 mg/day. ginger farmer is available. Emergency intranasal naloxoneis warranted and on hand at this time. Prescriptions pended for Coco Leos PA-C, last visit: 01/07; return visit: 05/02. Please send orders to [facility] pharmacy for pick-up. Thank you, Cristina George RP, BCA 04/06/2018 1:54 PM Oxycodone scripts placed in [facility] folder for supervisor opening and picking. Shilpa Bradley MA documented in this encounter Plan of Treatment Not on file documented as of this encounter Visit Diagnoses Diagnosis Other chronic pain documented in this encounter Additional Health Concerns Assessment Noted Time PHQ-9 Depression Total Score: 14 018 12:18 PM DISABILITIES SERVICES OFFICER PHQ-2 Depression Total Score: 5 01/07/20 18 12:18 PM DISABILITIES SERVICES OFFICER documented as of this encounter Care Teams Glove Machine Operator Relationship Specialty Start Date End Date Coco Leos PA-C [address] [place] [address] PCP - General Physician Stock Analyst 02/17/17 12/15/22 documented as of this encounter
--- OUTSIDE RECORDS SUMMARY | 2024-11-23 10:34 | XMS_ITS | Encounter Summary ---
Author Organization [facility] Care Address [address] [place] [address] Phone Care Team Providers Care Skip Pitman Name Role Phone Coco Leos PA-C Primary Care Provider [phone] Reason for Visit * Reason Comments Patient Reported Reason For Visit Encounter Details Date Type Department Care Team (Late st Contact Info) Description 05/02/2018 2:50 PM CDT Lab Only [address] [phone] [place] [address] [place], [place] [phone] Social History Tobacco Use Types Packs/Day Years [...] of use: As long as needed Video/Handout: https://[facility].[employer]/Extended Stay Americalibrary/kycojwc-aiua-byahcynuut-tens Pain Management - Exercise Pain Management No Coco Leos PA-C Note: Exercise: General Aerobic ?? Duration: 3 to 5 days per week for 20 minutes per day ?? Intensity: Moderate Strengthening: neither Back nor General (for widespread pain) nor Shoulder ?? Intensity: Moderate ?? Duration: 2 to 4 days per week ?? Instructions: See attached documentation for details Video/Handout: https://[facility].[employer]/clickTRUE/hckxwch-yxxz-zkwgurkqno-exercise documented as of this encounter Visit Diagnoses Not on filedocumented in this encounter Additional Health Concerns Assessment Noted Time PHQ-9 Depression Total Score: 3 05/02/20 18 4:27 PM CDT PHQ-2 Depression Total Score: 1 05/02/20 18 4:27 PM CDT documented as of this encounter Care Teams Skip Pitman Relationship Specialty Start Date End Date Coco Leos PA-C [address] [place] [address] PCP - General Physician Manager Front Office 02/17/17 12/15/22 documented as of this encounter
--- OUTSIDE RECORDS SUMMARY | 2024-11-23 10:34 | XMS_ITS | Encounter Summary ---
Author Organization [facility] Care Address [address] [place] [address] Phone Care Team Providers Care Supervisor Microwave Name Role Phone Coco Leos PA-C Primary Care Provider [phone] Provider, No-Primary Care Primary Care Provider Unavailable Encounter Details Date Type Department Care Team (Late st Contact Info) Description 05/04/2018 Pharmacy Visit RX [facility] [address] [place] [phone] Social History Tobacco Use Types Packs/Day [...] of use: As long as needed Video/Handout: https://[facility].org/health-library/uynlpso-pcoi-htcpcnaayr-tens Pain Management - Exercise Pain Management No Coco Leos PA-C Note: Exercise: General Aerobic ?? Duration: 3 to 5 days per week for 20 minutes per day ?? Intensity: Moderate Strengthening: neither Back nor General (for widespread pain) nor Shoulder ?? Intensity: Moderate ?? Duration: 2 to 4 days per week ?? Instructions: See attached documentation for details Video/Handout: https://[facility].org/health-library/ktprgva-qyjs-rvlkzyqexg-exercise documented as of this encounter Visit Diagnoses Not on filedocumented in this encounter Additional Health Concerns Assessment Noted Time PHQ-9 Depression Total Score: 3 05/02/20 18 4:27 PM CDT PHQ-2 Depression Total Score: 1 05/02/20 18 4:27 PM CDT documented as of this encounter Care Teams Supervisor Microwave Relationship Specialty Start Date End Date Coco Leos PA-C [address] [place], [place] [phone] PCP - General Physician Casing Tier 02/17/17 12/15/22 Provider, No-Primary Care [place] PCP - General 12/16/22 documented as of this encounter
--- OUTSIDE RECORDS SUMMARY | 2024-11-23 10:34 | XMS_ITS | Encounter Summary ---
Author Organization [facility] Care Address [address] [place] [address] Phone Care Team Providers Care Room Attendant Name Role Phone Coco Leos PA-C Primary Care Provider [phone] Provider, No-Primary Care Primary Care Provider Unavailable Encounter Details Date Type Department Care Team (Late st Contact Info) Description 05/10/2018 Pharmacy Visit RX [facility] [address] [place] [phone] Social History Tobacco Use Types Packs/Day [...] needed Video/Handout: https://[facility].org/health-library/mwuscqz-ajxm-vrjrquwrql-tens Pain Management - Exercise Pain Management No [...] details Video/Handout: https://[facility].org/health-library/crrthog-vwsg-yeiujjsiww-exercise documented as of this encounter Visit Diagnoses Not on filedocumented in this encounter Additional Health Concerns Assessment Noted Time PHQ-9 Depression Total Score: 3 05/02/20 18 4:27 PM CDT PHQ-2 Depression Total Score: 1 05/02/20 18 4:27 PM CDT documented as of this encounter Care Teams Room Attendant Relationship Specialty Start Date End Date Coco Leos PA-C [address] [place], [place] [phone] PCP - General Physician Mophead Sewer 02/17/17 12/15/22 Provider, No-Primary Care [place] PCP - General 12/16/22 documented as of this encounter
--- OUTSIDE RECORDS SUMMARY | 2024-11-23 10:34 | XMS_ITS | Encounter Summary ---
Author Organization [facility] Care Address [address] [place] [address] Phone Care Team Providers Care Machine Made Shoe Unit Worker Name Role Phone Coco Leos PA-C Primary Care Provider [phone] Provider, No-Primary Care Primary Care Provider Unavailable Encounter Details Date Type Department Care Team (Late st Contact Info) Description 04/09/2018 Pharmacy Visit RX [facility] [address] [place] [phone] Social History Tobacco Use Types Packs/Day [...] Depression Total Score: 14 018 12:18 PM INTERACTIVE MEDIA DESIGNER PHQ-2 Depression Total Score: 5 01/07/20 18 12:18 PM INTERACTIVE MEDIA DESIGNER documented as of this encounter Care Teams Machine Made Shoe Unit Worker Relationship Specialty Start Date End Date Coco Leos PA-C [address] [place], [place] [phone] PCP - General Physician Spreader 02/17/17 12/15/22 Provider, No-Primary Care [place] PCP - General 12/16/22 documented as of this encounter
--- OUTSIDE RECORDS SUMMARY | 2024-11-23 10:34 | XMS_ITS | Encounter Summary ---
Author Organization [facility] Care Address [address] [place] [address] Phone Care Team Providers Care Fire Coordinator Name Role Phone Coco Leos PA-C Primary Care Provider [phone] Provider, No-Primary Care Primary Care Provider Unavailable Encounter Details Date Type Department Care Team (Late st Contact Info) Description 03/11/2018 Pharmacy Visit RX [facility] [address] [place] [phone] Social History Tobacco Use Types Packs/Day [...] Depression Total Score: 14 018 12:18 PM SUPERVISOR PAIRING AND INSPECTING PHQ-2 Depression Total Score: 5 01/07/20 18 12:18 PM SUPERVISOR PAIRING AND INSPECTING documented as of this encounter Care Teams Fire Coordinator Relationship Specialty Start Date End Date Coco eLos PA-C [address] [place], [place] [phone] PCP - General Physician Utility Worker 02/17/17 12/15/22 Provider, No-Primary Care [place] PCP - General 12/16/22 documented as of this encounter
--- OUTSIDE RECORDS SUMMARY | 2024-11-23 10:34 | XMS_ITS | Encounter Summary ---
Author Organization [facility] Care Address [address] [place] [address] Phone Care Team Providers Care Clinical Consultant Name Role Phone Coco Leos PA-C Primary Care Provider [phone] Provider, No-Primary Care Primary Care Provider Unavailable Encounter Details Date Type Department Care Team (Late st Contact Info) Description 05/02/2018 Pharmacy Visit RX [facility] [address] [place] [phone] Social History Tobacco Use Types Packs/Day [...] of use: As long as needed Video/Handout: https://[facility].org/health-library/oghueof-calt-wjzcwlynuf-tens Pain Management - Exercise Pain Management No Coco Leos PA-C Note: Exercise: General Aerobic ?? Duration: 3 to 5 days per week for 20 minutes per day ?? Intensity: Moderate Strengthening: neither Back nor General (for widespread pain) nor Shoulder ?? Intensity: Moderate ?? Duration: 2 to 4 days per week ?? Instructions: See attached documentation for details Video/Handout: [email or web address]://[facility].org/health-library/eekgnhh-aguy-cvczktjghd-exercise documented as of this encounter Visit Diagnoses Not on filedocumented in this encounter Additional Health Concerns Assessment Noted Time PHQ-9 Depression Total Score: 3 05/02/20 18 4:27 PM CDT PHQ-2 Depression Total Score: 1 05/02/20 18 4:27 PM CDT documented as of this encounter Care Teams Clinical Consultant Relationship Specialty Start Date End Date Coco Leos PA-C [address] [place], [place] [phone] PCP - General Physician Unclaimed Property Officer 02/17/17 12/15/22 Provider, No-Primary Care [place] PCP - General 12/16/22 documented as of this encounter
--- OUTSIDE RECORDS SUMMARY | 2024-11-23 10:34 | XMS_ITS | Encounter Summary ---
Author Organization [facility] Care Address [address] [place] [address] Phone Care Team Providers Care Patient Financial Counselor Name Role Phone Coco Leos PA-C Primary Care Provider [phone] Provider, No-Primary Care Primary Care Provider Unavailable Encounter Details Date Type Department Care Team (Late st Contact Info) Description 05/03/2018 Pharmacy Visit [facility] [address] [place] [phone] Social History Tobacco Use Types Packs/Day [...] of use: As long as needed Video/Handout: [email or web address].[email or web address]-library/[email or web address]-ksni-auullqimlx-tens Pain Management - Exercise Pain Management No Coco Leos PA-C Note: Exercise: General Aerobic ?? Duration: 3 to 5 days per week for 20 minutes per day ?? Intensity: Moderate Strengthening: neither Back nor General (for widespread pain) nor Shoulder ?? Intensity: Moderate ?? Duration: 2 to 4 days per week ?? Instructions: See attached documentation for details Video/Handout: [email or web address].org/health-library/[email or web address]-[email or web address]-dspvkmyrla-exercise documented as of this encounter Visit Diagnoses Not on filedocumented in this encounter Additional Health Concerns Assessment Noted Time PHQ-9 Depression Total Score: 3 05/02/20 18 4:27 PM CDT PHQ-2 Depression Total Score: 1 05/02/20 18 4:27 PM CDT documented as of this encounter Care Teams Patient Financial Counselor Relationship Specialty Start Date End Date Coco Leos PA-C [address] [place], [place] [phone] PCP - General Physician Senior Treasury Analyst 02/17/17 12/15/22 Provider, No-Primary Care [place] PCP - General 12/16/22 documented as of this encounter
--- OUTSIDE RECORDS SUMMARY | 2024-11-23 10:34 | XMS_ITS | Encounter Summary ---
Author Organization [facility] Care Address [address] [place] [address] Phone Care Team Providers Care Hr Receptionist Name Role Phone Coco Leos PA-C Primary Care Provider [phone] Provider, No-Primary Care Primary Care Provider Unavailable Encounter Details Date Type Department Care Team (Late st Contact Info) Description 04/04/2018 Pharmacy Visit RX [facility] [address] [place] [phone] Social History Tobacco Use Types Packs/Day [...] Depression Total Score: 14 018 12:18 PM DIRECTOR OF CORPORATE SPONSORSHIPS PHQ-2 Depression Total Score: 5 01/07/20 18 12:18 PM DIRECTOR OF CORPORATE SPONSORSHIPS documented as of this encounter Care Teams Hr Receptionist Relationship Specialty Start Date End Date Coco Leos PA-C [address] [place], [place] [phone] PCP - General Physician Photo Graphics Librarian 02/17/17 12/15/22 Provider, No-Primary Care [place] PCP - General 12/16/22 documented as of this encounter
--- OUTSIDE RECORDS SUMMARY | 2024-11-23 10:35 | XMS_ITS | Encounter Summary ---
Author Organization [facility] Care Address [address] [place] [address] Phone Care Team Providers Care Mattress Stuffer Name Role Phone Coco Leos PA-C Primary Care Provider [phone] Provider, No-Primary Care Primary Care Provider Unavailable Encounter Details Date Type Department Care Team (Late st Contact Info) Description 02/10/2018 Pharmacy Visit RX [facility] [address] [place] [phone] Social History Tobacco Use Types Packs/Day [...] Depression Total Score: 14 018 12:18 PM LEGAL INVESTIGATOR PHQ-2 Depression Total Score: 5 01/07/20 18 12:18 PM LEGAL INVESTIGATOR documented as of this encounter Care Teams Mattress Stuffer Relationship Specialty Start Date End Date Coco Leos PA-C [address] [place], [place] [phone] PCP - General Physician Aviation Maintenance Technician 02/17/17 12/15/22 Provider, No-Primary Care [place] PCP - General 12/16/22 documented as of this encounter
--- OUTSIDE RECORDS SUMMARY | 2024-11-23 10:35 | XMS_ITS | Encounter Summary ---
Author Organization [facility] Care Address [address] [place] [address] Phone Care Team Providers Care Machine Gunner Name Role Phone Coco Leos PA-C Primary Care Provider [phone] Provider, No-Primary Care Primary Care Provider Unavailable Encounter Details Date Type Department Care Team (Late st Contact Info) Description 01/05/[address] [facility] [address] [place] [phone] Social History Tobacco Use Types Packs/Day [...] Depression Total Score: 12 018 12:31 PM AIRCRAFT STRUCTURAL FITTER PHQ-2 Depression Total Score: 5 11/16/19 18 12:31 PM AIRCRAFT STRUCTURAL FITTER documented as of this encounter Care Teams Machine Gunner Relationship Specialty Start Date End Date Coco Leos PA-C [address] [place], [place] [phone] PCP - General Physician Delivery Assistant 02/17/17 12/15/22 Provider, No-Primary Care [place] PCP - General 12/16/22 documented as of this encounter
--- OUTSIDE RECORDS SUMMARY | 2024-11-23 10:35 | XMS_ITS | Encounter Summary ---
Author Organization [facility] Care Address [address] [place] [address] Phone Care Team Providers Care Printed Circuit Board Assembly Repairer Name Role Phone Coco Leos PA-C Primary Care Provider [phone] Reason for Visit * Reason Comments Medication Refill Encounter Details Date Type Department Care Team (Late st Contact Info) Description 02/07/2018 Refill [facility] [address] [facility] [address] [place] [phone] Coco Leos PA-C [address] [place] [address] Social History Tobacco Use Types [...] in blue pod folder for pharmacy to picking crew supervisor. Js PATINO * Telephone Encounter - Dayanna Escamilla - 02/07/2018 1:50 PM CDT Pharmacy is requesting refill of: Naloxone, Oxycodone, Oxycotin Last visit: 01/07/18 Next visit: 03/11/18 Last written: 02/10/17 Prescription destination: [facility] Pain Medication Refill Service - Pharmacist's [...] There are no unexpected entries on the BARIATRIC NURSE and refill frequency is every 30-31 days. Opioid agreement signed 01/12/17 with Coco Leos PA-C. Urine Drug Screen: 07/09/17 (+) OC, OM, nor-OC and nor-OM, as expected. Respiratory Depression Risk Score 3; anti-depressant and long acting opioid prescribed and history of opioid abuse (hx/o MELECIO & MAMPH) Morphine equivalent dose is 90 mg/day. dress draper is available. Emergency intranasal naloxone is warranted and on hand at this time. Prescriptions pended for Coco Leos, last visit: 01/07; return visit: 03/11. Please send orders to [facility] pharmacy for [employer]. Thank you, Cristina George, [facility], BCACP documented in this encounter Plan of Treatment Not on file documented as of this encounter Visit Diagnoses Diagnosis Other chronic pain documented in this encounter Additional Health Concerns Assessment Noted Time PHQ-9 Depression Total Score: 14 018 12:18 PM ORDNANCE TECHNICIAN PHQ-2 Depression Total Score: 5 01/07/20 18 12:18 PM ORDNANCE TECHNICIAN documented as of this encounter Care Teams Printed Circuit Board Assembly Repairer Relationship Specialty Start Date End Date Coco Leos PA-C [address] [place] [address] PCP - General Physician Assurance Senior Manager Insurance 02/17/17 12/15/22 documented as of this encounter
--- OUTSIDE RECORDS SUMMARY | 2024-11-23 10:35 | XMS_ITS | Encounter Summary ---
Author Organization [facility] Care Address [address] [place] [address] Phone Care Team Providers Care Teacher Asst Name Role Phone Coco Leos PA-C Primary Care Provider [phone] Reason for Referral * Radiology Services (Routine) - Closed Specialty Diagnoses / Procedures Referred By Contac t Referred To Contact Radiology Diagnoses Lumbar radicular pain Trauma Procedures MRI SPINE LUMBAR WO CONTRAST ([id number]) Chris Dougherty [address] [place] [phone] Phone: tel: [facility] - Radiology - MRI [address] [place] [phone] Phone: tel: fax: Referral ID Status Reason Start Date Expiration Date Visits Re quested Visits Authorized [id number] Closed 12/28/2017 1 1 LESOFT ANALYST Reason for Visit * Reason Comments Patient Reported Reason For Visit 2nd Op inion - CPS - NWP * Internal Referral (D. Within 4 weeks) - Closed Specialty Diagnoses / Procedures Referred By Contac t Referred To Contact Anesthesiology Diagnoses Other chronic pain Coco Leos PA-C [address] [place] [address] Phone: tel: fax: [facility] - Anesthesia - Chronic Pain [address] [place] [address] Phone: tel: fax: Referral ID Status Reason Start Date Expiration Date Visits Re quested Visits Authorized [id number] Closed 11/16/2017 1 1 Encounter Details Date Type Department Care Team (Late st Contact Info) Description 12/28/2017 9:20 AM PEOPLESOFT ANALYST Office Visit [facility] - Anesthesia - Chronic Pain [address] [place] [address] Chris Sanchez MD [address] [place] [address] Social History Tobacco Use Types Packs/Day Years [...] - - Pulse 88 12/28/2017 9:27 AM PEOPLESOFT ANALYST Temperature 36.9 ??C (98.4 ??F) 12/28/2017 9:27 AM CS T Respiratory Rate - - Oxygen Saturation 97% 12/28/2017 9:27 AM PEOPLESOFT ANALYST Inhaled Oxygen Concentration - - Weight 91 kg (200 lb 9.9 oz) 12/28/2017 9:27 AM PEOPLESOFT ANALYST Height 180.3 cm (5' 10.98 ) 12/28/2017 9:[address] Body Mass Index 27.99 12/28/2017 9:27 AM PEOPLESOFT ANALYST documented in this encounter Patient Instructions * Discharge Instructions* Chris Dougherty MD - 12/28/2017 10:08 AM PEOPLESOFT ANALYST The following treatment recommendations were discussed in [...] will call once MRI results are available. LESOFT ANALYST documented in this encounter Progress Notes * Chris Sanchez MD - 12/28/2017 9:20 AM CST Chronic Pain (Clinic/Consult Note) Encounter Date: 12/28/2017 Subjective: Chief Complaint: Back and lower extremity pain Clinical Question to be answered: ?? He has PMH of chronic pain. He has had success with previous epidural injections performed in [place]. PMH of chronic pain, back, shoulders, hands, wrists. He is on chronic narcotic regimen as previously prescribed by his PCP in [place], but recently transferred care here as he is living in [place], [place] now for work.. He is also on non-narcotic neuropathic meds buthas side effects of sedation, so dosing is limited. He was on disability for a long time, but went back to work in February 2016. He is currently working for [employer] in [employer] and had an injury with lumbar fracture. 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 New from the prior exam is a right posterior paracentral disc extrusion at L3-4 which extends inferiorly behind the L4 vertebral body and moderately to severely narrows the right lateral recess. 2. Severe neural foraminal narrowing on the left at L3-4 and on the right at L5-S1, similar to prior. Narrative 01/12/2018 9:24 AM PEOPLESOFT ANALYST Procedure: MRI SPINE LUMBAR WO CONTRAST ([id number]) Indication: ] Back pain, left lower extremity [...] 01/12/2018 Procedure: MRI SPINE LUMBAR WO CONTRAST ([id number]) Indication: ] Back pain, left lower extremity [...] right at L5-S1, similar to prior. [facility] Final Result documented in this [...] Depression Total Score: 12 018 12:31 PM PEOPLESOFT ANALYST PHQ-2 Depression Total Score: 5 11/16/19 18 12:31 PM PEOPLESOFT ANALYST documented as of this encounter Care Teams Teacher Asst Relationship Specialty Start Date End Date Coco Leos PA-C [address] [place] [address] PCP - General Physician Satellite Tv Technician Installer 02/17/17 12/15/22 documented as of this encounter
--- OUTSIDE RECORDS SUMMARY | 2024-11-23 10:35 | XMS_ITS | Encounter Summary ---
Author Organization [facility] Care Address [address] [place] [address] Phone Care Team Providers Care Magician Helper Name Role Phone Coco Leos PA-C Primary Care Provider [phone] Reason for Visit * Reason Comments Med Request Encounter Details Date Type Department Care Team (Late st Contact Info) Description 03/11/2018 Telephone [facility] [address] [place] [address] [place] [address] Coco Leos PA-C [address] [place] [address] Social History Tobacco Use Types [...] Clinic appt today and would like to fruit picker today. MJ. Kun, RN 03/11/2018, 8:30 AM [...] of use: As long as needed Video/Handout: [email or web address]://[facility].[employer]/xxmlswz-qoug-ljouhcdwqk-tens Pain Management - Exercise Pain Management No Coco Leos PA-C Note: Exercise: General Aerobic ?? Duration: 3 to 5 days per week for 20 minutes per day ?? Intensity: Moderate Strengthening: neither Back nor General (for widespread pain) nor Shoulder ?? Intensity: Moderate ?? Duration: 2 to 4 days per week ?? Instructions: See attached documentation for details Video/Handout: [email or web address]://[email or web address].[employer]/mohchilibrary/dtrtmds-kswb-anbpadzorr-exercise documented as of this encounter Visit Diagnoses Diagnosis Other chronic pain documented in this encounter Additional Health Concerns Assessment Noted Time PHQ-9 Depression Total Score: 14 02/23/2 018 12:18 PM TEXTILE PIN WORKER PHQ-2 Depression Total Score: 5 01/07/20 18 12:18 PM TEXTILE PIN WORKER documented as of this encounter Care Teams Magician Helper Relationship Specialty Start Date End Date Coco Leos PA-C [address] [place] [address] PCP - General Physician Courtroom Reporter 02/17/17 12/15/22 documented as of this encounter
--- OUTSIDE RECORDS SUMMARY | 2024-11-23 10:35 | XMS_ITS | Encounter Summary ---
Author Organization [facility] Care Address [address] [place] [address] Phone Care Team Providers Care Marine Propulsion Technician Name Role Phone Coco Leos PA-C Primary Care Provider [phone] Reason for Visit * Reason Comments Follow-up Encounter Details Date Type Department Care Team (Late st Contact Info) Description 01/05/2018 Telephone [facility] - Anesthesia - Chronic Pain [address] [place] [phone] Chris Sanchez MD [address] [place] [address] Social History Tobacco Use Types Packs/Day Years [...] the lumbar MRI as planned. Chris Martinez CIATE PROFESSOR OF GEOGRAPHY * Telephone Encounter - Ruth Escamilla RN [...] of the above suggested plan of action. CIATE PROFESSOR OF GEOGRAPHY documented in this encounter Plan of Treatment [...] Video/Handout: https://[facility].org/health-library/gpovloo-kosn-dieeciyion-tens Pain Management - Exercise Pain Management No [...] Video/Handout: https://[facility].org/health-library/vwshbnl-ewpp-pagsbiptdz-exercise documented as of this encounter Visit Diagnoses Not on filedocumented in this encounter Additional Health Concerns Assessment Noted Time PHQ-9 Depression Total Score: 12 018 12:31 PM ASSOCIATE PROFESSOR OF GEOGRAPHY PHQ-2 Depression Total Score: 5 11/16/19 18 12:31 PM ASSOCIATE PROFESSOR OF GEOGRAPHY documented as of this encounter Care Teams Marine Propulsion Technician Relationship Specialty Start Date End Date Coco Leos PA-C [address] [place] [address] PCP - General Physician Scheduling Agent 02/17/17 12/15/22 documented as of this encounter
--- OUTSIDE RECORDS SUMMARY | 2024-11-23 10:35 | XMS_ITS | Encounter Summary ---
Author Organization [facility] Care Address [address] [place] [address] Phone Care Team Providers Care Broomcorn Press Feeder Name Role Phone Coco Leos PA-C Primary Care Provider [phone] Reason for Visit * Reason Comments Other Encounter Details Date Type Department Care Team (Late st Contact Info) Description 02/24/2018 Telephone [facility] [address] [facility] [address] [place] [address] Coco Leos PA-C [address] [place] [address] Social History Tobacco Use Types [...] needed Video/Handout: https://[facility], incTransporeon/[employer]/ceedvce-ozsb-xauukbqjbx-tens Pain Management - Exercise Pain Management No [...] details Video/Handout: https://[facility], incTransporeon/[employer]/caryhrh-buoy-eurbfzenfy-exercise documented as of this encounter Visit Diagnoses Not on filedocumented in this encounter Additional Health Concerns Assessment Noted Time PHQ-9 Depression Total Score: 14 018 12:18 PM REGULATORY SUBMISSIONS ASSOCIATE PHQ-2 Depression Total Score: 5 01/07/20 18 12:18 PM REGULATORY SUBMISSIONS ASSOCIATE documented as of this encounter Care Teams Broomcorn Press Feeder Relationship Specialty Start Date End Date Coco Leos PA-C [address] [place] [address] PCP - General Physician Negative Restorer 02/17/17 12/15/22 documented as of this encounter
--- OUTSIDE RECORDS SUMMARY | 2024-11-23 10:35 | XMS_ITS | Encounter Summary ---
Author Organization [facility] Care Address [address] [place] [address] Phone Care Team Providers Care Production Control Coordinator Name Role Phone Coco Leos PA-C Primary Care Provider [phone] Provider, No-Primary Care Primary Care Provider Unavailable Encounter Details Date Type Department Care Team (Late st Contact Info) Description 02/14/2018 Pharmacy Visit RX [facility] [address] [place] [phone] Social History Tobacco Use Types Packs/Day [...] Depression Total Score: 14 018 12:18 PM MINI BACCARAT DEALER PHQ-2 Depression Total Score: 5 01/07/20 18 12:18 PM MINI BACCARAT DEALER documented as of this encounter Care Teams Production Control Coordinator Relationship Specialty Start Date End Date Coco Leos PA-C [address] [place], [place] [phone] PCP - General Physician Shellfish Sorter 02/17/17 12/15/22 Provider, No-Primary Care [place] PCP - General 12/16/22 documented as of this encounter
--- OUTSIDE RECORDS SUMMARY | 2024-11-23 10:35 | XMS_ITS | Encounter Summary ---
Author Organization [facility] Care Address [address] [place] [address] Phone Care Team Providers Care Fluoroscope Operator Name Role Phone Coco Leos PA-C Primary Care Provider [phone] Provider, No-Primary Care Primary Care Provider Unavailable Encounter Details Date Type Department Care Team (Late st Contact Info) Description 12/30/2017 Pharmacy Visit RX [facility] [address] [place] [phone] Social History Tobacco Use Types Packs/Day [...] Depression Total Score: 12 018 12:31 PM SENIOR DENTIST PHQ-2 Depression Total Score: 5 11/16/19 18 12:31 PM SENIOR DENTIST documented as of this encounter Care Teams Fluoroscope Operator Relationship Specialty Start Date End Date Coco Leos PA-C [address] [place], [place] [phone] PCP - General Physician X Ray Physician 02/17/17 12/15/22 Provider, No-Primary Care [place] PCP - General 12/16/22 documented as of this encounter
--- OUTSIDE RECORDS SUMMARY | 2024-11-23 10:35 | XMS_ITS | Encounter Summary ---
Author Organization [facility] Care Address [address] [place] [address] Phone Care Team Providers Care Cupola Patcher Name Role Phone Coco Leos PA-C Primary Care Provider [phone] Provider, No-Primary Care Primary Care Provider Unavailable Encounter Details Date Type Department Care Team (Late st Contact Info) Description 12/10/2017 Pharmacy Visit RX [facility] [address] [place] [phone] Social History Tobacco Use Types Packs/Day [...] Depression Total Score: 12 018 12:31 PM ASSEMBLER LEATHER GOODS PHQ-2 Depression Total Score: 5 11/16/19 18 12:31 PM ASSEMBLER LEATHER GOODS documented as of this encounter Care Teams Cupola Patcher Relationship Specialty Start Date End Date Coco Leos PA-C [address] [place], [place] [phone] PCP - General Physician Hydraulic Assembler 02/17/17 12/15/22 Provider, No-Primary Care [place] PCP - General 12/16/22 documented as of this encounter
--- OUTSIDE RECORDS SUMMARY | 2024-11-23 10:35 | XMS_ITS | Encounter Summary ---
Author Organization [facility] Care Address [address] [place] [address] Phone Care Team Providers Care Boarding Machine Operator Name Role Phone Coco Leos PA-C Primary Care Provider [phone] Reason for Visit * Reason Comments Patient Reported Reason For Visit proc / PAIN SELECTIVE NERVE ROOT BLOCK, LUMBAR/SACRAL W FLUORO Encounter Details Date Type Department Care Team (Late st Contact Info) Description 02/15/2018 9:00 AM CDT Office Visit [facility] - Anesthesia - Chronic Pain [address] [place] [address] Chris Sanchez MD [address] [place], [place] [phone] Social History Tobacco Use Types Packs/Day Years [...] or concerns, call: Pain Management Clinic at [phone] from 8 a.m. to 5 p.m. Wednesday through Wednesday. OR The hospital liquid chlorine operator at [phone] on nights, weekends and holidays. Ask to talk with the pain doctor fellmongering machine operator. OR 24 hours a day toll-free at and ask to talk to the pain doctor fellmongering machine operator. OR Go to the emergency room if [...] status is appropriate and he has a feedmobile driver present. 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 Teaching Statement: Chris Andrade MD was present for the entire procedure I was present for the entire procedure. Chris Sanchez MD [facility] Clinical Concrete Mixer Truck Driver Department of Anesthesia, Division of Chronic Pain Management Pager [phone] documented in this encounter Plan of Treatment [...] SELECTIVE NERVE ROOT BLOCK, LUMBAR/SACRAL W FLUORO [facility] [employer] [facility] PAIN CLINIC IMAGING Edited Resul t - [...] Depression Total Score: 14 018 12:18 PM SENIOR ENGINEERING SPECIALIST PHQ-2 Depression Total Score: 5 01/07/20 18 12:18 PM SENIOR ENGINEERING SPECIALIST documented as of this encounter Care Teams Boarding Machine Operator Relationship Specialty Start Date End Date Coco Leos PA-C [address] [place] [address] PCP - General Physician Clipper Counters 02/17/17 12/15/22 documented as of this encounter
--- OUTSIDE RECORDS SUMMARY | 2024-11-23 10:35 | XMS_ITS | Encounter Summary ---
Author Organization [facility] Address [address] [place] [address] Phone Care Team Providers Care Emergency Dispatch Operator Name Role Phone Coco Leos PA-C Primary Care Provider [phone] Reason for Referral * Radiology Services (Routine) - Closed Specialty Diagnoses / Procedures Referred By Contac t Referred To Contact Radiology Diagnoses Lumbar radicular pain Trauma Procedures MRI SPINE LUMBAR WO CONTRAST ([id number]) Chris Dougherty [address] [place] [address] Phone: tel: [facility] Radiology - MRI [address] [place] [phone] Phone: tel: fax: Referral ID Status Reason Start Date Expiration Date Visits Re quested Visits Authorized [id number] Closed 12/28/2017 1 1 NE PATROLLER Reason for Visit * Reason Comments Patient Reported Reason For Visit pt margy l Patient Reported Reason For Visit pt margy l * Radiology Services (Routine) - Closed Specialty Diagnoses / Procedures Referred By Contac t Referred To Contact Radiology Diagnoses Lumbar radicular pain Trauma Procedures MRI SPINE LUMBAR WO CONTRAST ([id number]) Chris Dougherty [address] [place] [address] Phone: tel: [facility] Radiology - MRI [address] [place] [phone] Phone: tel: fax: Referral ID Status Reason Start Date Expiration Date Visits Re quested Visits Authorized [id number] Closed 12/28/2017 1 1 Encounter Details Date Type Department Care Team (Late st Contact Info) Description 01/11/2018 4:59 PM ALPINE PATROLLER - 01/11/2018 5:00 PM [facility] Hospital Encounter [facility] - Radiology - MRI [address] [place] [address] Jelani Burt [address] [place] [address] Discharge Disposition: Home or Self Care Social [...] 30 400 g 5 01/11/2018 4:27 PM ALPINE PATROLLER 01/07/2018 DULoxetine 60 mg XR capsuleIndicatio ns:Other chronic pain,Moderate episode of recurrent major depressive disorder (HCC) Take 1 capsule (60 mg total) by mouth 2 times daily. 60 capsule 01/11/2018 4:27 PM ALPINE PATROLLER 01/07/2018 lidocaine 5 % ointmentIndicati ons:Low back pain with radiation, right Apply topically 2 times daily as needed. 35.44 g 11 01/12/2017 5:22 PM ALPINE PATROLLER 01/12/2017 omeprazole 20 mg enteric coated capsule [...] Date: 01/10/18 60 tablet 01/11/2018 4:27 PM ALPINE PATROLLER 01/10/2018 8 oxyCODONE-acetam inophen 10-325 mg per tabletIndication s:Other chronic pain Take 1 tablet by mouth every 4 hours as needed for Pain. Max 3/day. Earliest Fill Date: 01/10/18 90 tablet 01/11/2018 4:27 PM ALPINE PATROLLER 01/10/2018 8 documented as of this encounter Plan of Treatment Not on file documented as of this encounter Procedures Procedure Name Priority Date/Time Associated Diagnosis Comments MRI SPINE LUMBAR WO CONTRAST Routine 01/11/2018 6:31 PM ALPINE PATROLLER Lumbar radicular pain Trauma documented in this encounter Results * MRI SPINE LUMBAR WO CONTRAST ([id number]) (01/11/2018 6:31 PM ALPINE PATROLLER) Anatomical Region Laterality Modality Spine Magnetic Resonan ce Impressions 01/12/2018 9:24 AM ALPINE PATROLLER Impression: 1. New from the prior exam is a right posterior paracentral disc extrusion at L3-4 which extends inferiorly behind the L4 vertebral body and moderately to severely narrows the right lateral recess. 2. Severe neural foraminal narrowing on the left at L3-4 and on the right at L5-S1, similar to prior. Narrative 01/12/2018 9:24 AM ALPINE PATROLLER Procedure: MRI SPINE LUMBAR WO CONTRAST ([id number]) Indication: ] Back pain, left lower extremity [...] 01/12/2018 Procedure: MRI SPINE LUMBAR WO CONTRAST ([id number]) Indication: ] Back pain, left lower extremity [...] at L5-S1, similar to prior. Chris Dougherty [facility] MR ORDERABLES Final Result documented in this encounter Visit Diagnoses Diagnosis Lumbar radicular pain Thoracic or lumbosacral neuritis or radiculitis, unspecified Trauma Injury, other and unspecified, unspecified site documented in this encounter Additional Health Concerns Assessment Noted Time PHQ-9 Depression Total Score: 14 018 12:18 PM ALPINE PATROLLER PHQ-2 Depression Total Score: 5 01/07/20 18 12:18 PM ALPINE PATROLLER documented as of this encounter Care Teams Emergency Dispatch Operator Relationship Specialty Start Date End Date Coco Leos PA-C [address] [place] [id number] PCP - General Physician Water Proofer 02/17/17 12/15/22 documented as of this encounter
--- OUTSIDE RECORDS SUMMARY | 2024-11-23 10:35 | XMS_ITS | Encounter Summary ---
Author Organization [facility] Address [address] [place] [address] Phone Care Team Providers Care Body Shop Estimator Name Role Phone Coco Leos PA-C Primary Care Provider [phone] Provider, No-Primary Care Primary Care Provider Unavailable Encounter Details Date Type Department Care Team (Late st Contact Info) Description 02/07/2018 Pharmacy Visit RX [facility] [address] [place] [phone] Social History Tobacco Use Types Packs/Day [...] Depression Total Score: 14 018 12:18 PM BROADCAST OPERATIONS TECHNICIAN PHQ-2 Depression Total Score: 5 01/07/20 18 12:18 PM BROADCAST OPERATIONS TECHNICIAN documented as of this encounter Care Teams Body Shop Estimator Relationship Specialty Start Date End Date Coco Leos PA-C [address] [place], [place] [phone] PCP - General Physician Component Inspector 02/17/17 12/15/22 Provider, No-Primary Care [place] PCP - General 12/16/22 documented as of this encounter
--- OUTSIDE RECORDS SUMMARY | 2024-11-23 10:35 | XMS_ITS | Encounter Summary ---
Author Organization [facility] Care Address [address] [place] [address] Phone Care Team Providers Care Cnc Programmer Name Role Phone Coco Leos PA-C Primary Care Provider [phone] Reason for Visit * Reason Comments Patient Reported Reason For Visit f/u MR I - having neck pain as well Encounter Details Date Type Department Care Team (Late st Contact Info) Description 01/12/2018 3:00 PM LOANS OFFICER Office Visit [facility] - Chronic Pain [address] [place] [address] Chris Sanchez MD [address] [place] [address] Social History Tobacco Use Types Packs/Day Years [...] Comments Blood Pressure 127/90 01/12/2018 2:57 PM LOANS OFFICER Pulse 79 01/12/2018 2:57 PM LOANS OFFICER Temperature 36.7 ??C (98.1 ??F) 01/12/2018 2:57 PM CS T Respiratory Rate - - Oxygen Saturation 95% 01/12/2018 2:57 PM LOANS OFFICER Inhaled Oxygen Concentration - - Weight 91.6 kg (201 lb 15.1 oz) 01/12/2018 2:57 PM LOANS OFFICER Height 180.3 cm (5' 10.98 ) 01/12/2018 2:[address] Body Mass Index 28.18 01/12/2018 2:57 PM LOANS OFFICER documented in this encounter Patient Instructions * Discharge Instructions* Lissa Rollins MD - 01/12/2018 3:39 PM LOANS OFFICER The following treatment recommendations were discussed in detail with Mr. Edilberto Hawley. Imaging: I have reviewed Mr. Edilberto Hwaley's imaging and results were discussed with him [...] Aleve for 7 days. Please bring a local owner operator truck driver. Multidisciplinary Pain Management: In the presence [...] Follow-up: For Left L3 and L4 TFESI. S OFFICER * Patient Instructions* Lissa Rollins MD - 01/12/2018 3:37 PM LOANS OFFICER Routine Prep If you do not follow these instructions, you may not be able to have your procedure at the scheduled time. Market Asset Protection Manager on the day of your procedure: ??? You cannot drive, take a taxi or bus or leave the hospital alone. A local owner operator truck driver must come with you. ??? If you do not have a local owner operator truck driver with you, your procedure cannot be [...] call: [facility] nurses line at [phone]. Leave your: ??? Name (please spell it) ??? Birthdate ??? A phone number to call you back Reviewed with patient/caregiver/HC Bicycle Ii Assembler and understanding verbalized. Copy provided. Revised [facility] 03/31 S OFFICER documented in this encounter Progress Notes * [...] pain or any health provider?: Yes Contacted box sealing inspector regarding pain?: Yes Pain pattern: Always present [...] Quite a bit Pain interferes with performing rack pusher: Quite a bit Pain interferes with yard [...] worker's compensation claim 04/16/2017 Back Z02.6 ??? intermediate current use of opiate analgesic Z79.891 [...] History Narrative Mr. 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 Please bring a local owner operator truck driver. Multidisciplinary Pain Management: In the presence [...] and plan of care Chris Sanchez MD [facility] Clinical Lending Advisor Department of Anesthesia, Division of Chronic Pain Management Pager [phone] S OFFICER S OFFICER documented in this encounter Plan of [...] Depression Total Score: 14 018 12:18 PM LOANS OFFICER PHQ-2 Depression Total Score: 5 01/07/20 18 12:18 PM LOANS OFFICER documented as of this encounter Care Teams Cnc Programmer Relationship Specialty Start Date End Date Cooc Leos PA-C [address] [place] [address] PCP - General Physician Scrap Hoist Operator 02/17/17 12/15/22 documented as of this encounter
--- OUTSIDE RECORDS SUMMARY | 2024-11-23 10:35 | XMS_ITS | Encounter Summary ---
Author Organization [facility] Address [address] [place] [address] Phone Care Team Providers Care Supervisor Dumping Name Role Phone Coco Leos PA-C Primary Care Provider [phone] Provider, No-Primary Care Primary Care Provider Unavailable Encounter Details Date Type Department Care Team (Late st Contact Info) Description 01/04/2018 Pharmacy Visit RX [facility] [address] [place] [phone] Social History Tobacco Use Types Packs/Day [...] Depression Total Score: 12 018 12:31 PM FIRE RANGE TECHNICIAN PHQ-2 Depression Total Score: 5 11/16/19 18 12:31 PM FIRE RANGE TECHNICIAN documented as of this encounter Care Teams Supervisor Dumping Relationship Specialty Start Date End Date Coco Leos PA-C [address] [place], [place] [phone] PCP - General Physician Furnace Liner 02/17/17 12/15/22 Provider, No-Primary Care [place] PCP - General 12/16/22 documented as of this encounter
--- OUTSIDE RECORDS SUMMARY | 2024-11-23 10:35 | XMS_ITS | Encounter Summary ---
Author Organization [facility] Care Address [address] [place] [address] Phone Care Team Providers Care Labeling Strategist Name Role Phone Coco Leos PA-C Primary Care Provider [phone] Reason for Referral * Radiology Services (Routine) - Closed Specialty Diagnoses / Procedures Referred By Contac t Referred To Contact Radiology Diagnoses Arthritis Neck pain Cervical radiculopathy at C7 Procedures MRI SPINE CERVICAL WO CONTRAST ([id number]) Coco Leos PA-C [address] [place] [address] Phone: tel: fax: [address] [phone] Phone: tel: fax: Referral ID Status Reason Start Date Expiration Date Visits Re quested Visits Authorized [id number] Closed 01/07/2018 1 1 ER GAUGER Reason for Visit * Reason Comments Patient Reported Reason For Visit irl vandana morales * Radiology Services (Routine) - Closed Specialty Diagnoses / Procedures Referred By Contac t Referred To Contact Radiology Diagnoses Arthritis Neck pain Cervical radiculopathy at C7 Procedures MRI SPINE CERVICAL WO CONTRAST ([id number]) Coco Leos PA-C [address] [place] [address] Phone: tel: fax: [facility] Radiology - MRI [address] [place] [address], [place] [address] Phone: tel: fax: Referral ID Status Reason Start Date Expiration Date Visits Re quested Visits Authorized [id number] Closed 01/07/2018 1 1 Encounter Details Date Type Department Care Team (Susie st Contact Info) Description 01/11/2018 5:01 PM PUMPER GAUGER - 01/11/2018 11:59 PM PUMPER GAUGER Hospital Encounter Medical [facility] Radiology - MRI [address] [place] [phone] CarmelPrinceJelani A [address] [place] [address] Social History Tobacco Use Types Packs/Day Years [...] 30 400 g 5 01/11/2018 4:27 PM PUMPER GAUGER 01/07/2018 DULoxetine 60 mg XR capsuleIndicatio ns:Other chronic pain,Moderate episode of recurrent major depressive disorder (HCC) Take 1 capsule (60 mg total) by mouth 2 times daily. 60 capsule 11 01/11/2018 4:27 PM PUMPER GAUGER 01/07/2018 lidocaine 5 % ointmentIndicati ons:Low back pain with radiation, right Apply topically 2 times daily as needed. 35.44 g 11 01/12/2017 5:22 PM PUMPER GAUGER 01/12/2017 omeprazole 20 mg enteric coated capsule [...] Date: 01/10/18 60 tablet 01/11/2018 4:27 PM PUMPER GAUGER 01/10/2018 8 oxyCODONE-acetam inophen 10-325 mg per tabletIndication s:Other chronic pain Take 1 tablet by mouth every 4 hours as needed for Pain. Max 3/day. Earliest Fill Date: 01/10/18 90 tablet 01/11/2018 4:27 PM PUMPER GAUGER 01/10/2018 8 documented as of this encounter [...] of use: As long as needed Video/Handout: [email or web address]-ntif-[email or web address]-tens Pain Management - Exercise Pain Management No Coco Leos PA-C Note: Exercise: General Aerobic ?? Duration: 3 to 5 days per week for 20 minutes per day ?? Intensity: Moderate Strengthening: neither Back nor General (for widespread pain) nor Shoulder ?? Intensity: Moderate ?? Duration: 2 to 4 days per week ?? Instructions: See attached documentation for details Video/Handout: [email or web address] documented as of this encounter Procedures Procedure Name Priority Date/Time Associated Diagnosis Comments MRI SPINE CERVICAL WO CONTRAST Routine 01/11/2018 6:32 PM PUMPER GAUGER Arthritis Neck pain Cervical radiculopathy at C7 documented in this encounter Results * MRI SPINE CERVICAL WO CONTRAST ([id number]) (01/11/2018 6:32 PM PUMPER GAUGER) Anatomical Region Laterality Modality Spine Magnetic Resonan ce Impressions 01/12/2018 11:07 AM PUMPER GAUGER Impression: 1. The most significant central spinal stenosis is at C6-7 with moderate stenosis. 2. The neural foramen show severe bilateral narrowing at C4-5 with moderate narrowing at C34 and C5-6. Narrative 01/12/2018 11:07 AM PUMPER GAUGER Procedure: MRI SPINE CERVICAL WO CONTRAST ([id number]) Indication: C7 radicular symptoms in left upper [...] 01/12/2018 Procedure: MRI SPINE CERVICAL WO CONTRAST ([id number]) Indication: C7 radicular symptoms in left upper [...] Depression Total Score: 14 018 12:18 PM PUMPER GAUGER PHQ-2 Depression Total Score: 5 01/07/20 18 12:18 PM PUMPER GAUGER documented as of this encounter Care Teams Labeling Strategist Relationship Specialty Start Date End Date Coco Leos PA-C [address] [place] [address] PCP - General Physician Materials Recycler 02/17/17 12/15/22 documented as of this encounter
--- OUTSIDE RECORDS SUMMARY | 2024-11-23 10:35 | XMS_ITS | Encounter Summary ---
Author Organization [facility] Care Address [address] [place] [address] Phone Care Team Providers Care Media Producer Name Role Phone Coco Leos PA-C Primary Care Provider [phone] Provider, No-Primary Care Primary Care Provider Unavailable Encounter Details Date Type Department Care Team (Late st Contact Info) Description 02/11/2018 Pharmacy Visit RX [facility] [address] [place] [phone] Social History Tobacco Use Types Packs/Day [...] Depression Total Score: 14 018 12:18 PM DARKROOM WORKER PHQ-2 Depression Total Score: 5 01/07/20 18 12:18 PM DARKROOM WORKER documented as of this encounter Care Teams Media Producer Relationship Specialty Start Date End Date Coco Leos PA-C [address] [place], [place] [phone] PCP - General Physician Deli Worker 02/17/17 12/15/22 Provider, No-Primary Care [place] PCP - General 12/16/22 documented as of this encounter
--- OUTSIDE RECORDS SUMMARY | 2024-11-23 10:35 | XMS_ITS | Encounter Summary ---
Author Organization [facility] Care Address [address] [place] [address] Phone Care Team Providers Care Meat Stocker Name Role Phone Coco Leos PA-C Primary Care Provider [phone] Provider, No-Primary Care Primary Care Provider Unavailable Encounter Details Date Type Department Care Team (Late st Contact Info) Description 01/11/2018 Pharmacy Visit RX [facility] [address] [place] [phone] Social History Tobacco Use Types Packs/Day [...] Depression Total Score: 14 018 12:18 PM DRILL HAND PHQ-2 Depression Total Score: 5 01/07/20 18 12:18 PM DRILL HAND documented as of this encounter Care Teams Meat Stocker Relationship Specialty Start Date End Date Coco Leos PA-C [address] [place], [place] [phone] PCP - General Physician Lasting Machine Operator Bed 02/17/17 12/15/22 Provider, No-Primary Care [place] PCP - General 12/16/22 documented as of this encounter
--- OUTSIDE RECORDS SUMMARY | 2024-11-23 10:35 | XMS_ITS | Encounter Summary ---
Author Organization [facility] Care Address [address] [place] [address] Phone Care Team Providers Care Skills Trainer Name Role Phone Coco Leos PA-C Primary Care Provider [phone] Provider, No-Primary Care Primary Care Provider Unavailable Encounter Details Date Type Department Care Team (Late st Contact Info) Description 02/08/2018 Pharmacy Visit RX [facility] [address] [place] [phone] Social History Tobacco Use Types Packs/Day [...] Depression Total Score: 14 018 12:18 PM PROJECT CONTROL OFFICER PHQ-2 Depression Total Score: 5 01/07/20 18 12:18 PM PROJECT CONTROL OFFICER documented as of this encounter Care Teams Skills Trainer Relationship Specialty Start Date End Date Coco Leos PA-C [address] [place], [place] [phone] PCP - General Physician Sweeper Brush Maker Machine 02/17/17 12/15/22 Provider, No-Primary Care [place] PCP - General 12/16/22 documented as of this encounter
--- OUTSIDE RECORDS SUMMARY | 2024-11-23 10:35 | XMS_ITS | Encounter Summary ---
Author Organization [facility] Care Address [address] [place] [address] Phone Care Team Providers Care Manager Heavy Equipment Name Role Phone Coco Leos PA-C Primary Care Provider [phone] Reason for Visit * Reason Comments Prior Authorization Encounter Details Date Type Department Care Team (Late st Contact Info) Description 02/09/2018 Telephone [facility] - [facility] - Pharmacy [address] [phone] Kellie Rush, [facility] [address] [place] [address] Social History Tobacco Use Types [...] 15mg tablets #60. Please call , ID# [id number]. Please melissa as urgent if possible. Thank you. 02/09/18 17:18 called in review. Reference number [id number]. Talked to pest control service representative Mendy. Js PATINO 02/14/18 9:32am approved 02/09/18. Reference number [id number]. Js PATINO documented in this encounter Plan [...] needed Video/Handout: https://[facility].[employer]/[facility] [facility] [employer] Universitylibrary/gxjeugh-juqu-zrqyfovddc-tens Pain Management - Exercise Pain Management No [...] details Video/Handout: https://[facility].[employer]/[facility] Health & Science Universitylibrary/tqnucyf-icuy-tdoauzhymf-exercise documented as of this encounter Visit Diagnoses Not on filedocumented in this encounter Additional Health Concerns Assessment Noted Time PHQ-9 Depression Total Score: 14 018 12:18 PM CLINICAL TRIAL LEADER PHQ-2 Depression Total Score: 5 01/07/20 18 12:18 PM CLINICAL TRIAL LEADER documented as of this encounter Care Teams Manager Heavy Equipment Relationship Specialty Start Date End Date Coco Leos PA-C [address] [place] [address] PCP - General Physician Compounding Pharmacy Technician 02/17/17 12/15/22 documented as of this encounter
--- OUTSIDE RECORDS SUMMARY | 2024-11-23 10:35 | XMS_ITS | Encounter Summary ---
Author Organization [facility] Care Address [address] [place] [address] Phone Care Team Providers Care Yoke Setter Name Role Phone Coco Leos PA-C Primary Care Provider [phone] Provider, No-Primary Care Primary Care Provider Unavailable Encounter Details Date Type Department Care Team (Late st Contact Info) Description 01/10/2018 Pharmacy Visit RX [facility] [address] [place] [phone] Social History Tobacco Use Types Packs/Day [...] Depression Total Score: 14 018 12:18 PM PIPE SETTER PHQ-2 Depression Total Score: 5 01/07/20 18 12:18 PM PIPE SETTER documented as of this encounter Care Teams Yoke Setter Relationship Specialty Start Date End Date Coco Leos PA-C [address] [place], [place] [phone] PCP - General Physician Paratransit Driver 02/17/17 12/15/22 Provider, No-Primary Care [place] PCP - General 12/16/22 documented as of this encounter
--- OUTSIDE RECORDS SUMMARY | 2024-11-23 10:35 | XMS_ITS | Encounter Summary ---
Author Organization [facility] Care Address [address] [place] [address] Phone Care Team Providers Care Body Die Maker Name Role Phone Coco Leos PA-C Primary Care Provider [phone] Reason for Visit * Reason Comments Other Encounter Details Date Type Department Care Team (Late st Contact Info) Description 01/19/2018 [facility] - Anesthesia - Chronic Pain [address] [place] [phone] Chris Sanchez MD [address] [place] [address] Social History Tobacco Use Types Packs/Day Years [...] that his PT Referral be faxed to [phone] ( [facility]), as helost the original copy. This was done for him. RD LABEL INTERN documented in this encounter Plan of [...] of use: As long as needed Video/Handout: [email or web address] companyDesignCrowd/[employer]-library/rroxagm-clgh-zkdbmtwsau-tens Pain Management - Exercise Pain Management No Coco Leos PA-C Note: Exercise: General Aerobic ?? Duration: 3 to 5 days per week for 20 minutes per day ?? Intensity: Moderate Strengthening: neither Back nor General (for widespread pain) nor Shoulder ?? Intensity: Moderate ?? Duration: 2 to 4 days per week ?? Instructions: See attached documentation for details Video/Handout: [email or web address] [email or web address]/[email or web address]/dibbykt-zguo-ivyjpjtghw-exercise documented as of this encounter Visit Diagnoses Not on filedocumented in this encounter Additional Health Concerns Assessment Noted Time PHQ-9 Depression Total Score: 14 018 12:18 PM RECORD LABEL INTERN PHQ-2 Depression Total Score: 5 01/07/20 18 12:18 PM RECORD LABEL INTERN documented as of this encounter Care Teams Body Die Maker Relationship Specialty Start Date End Date Coco Leos PA-C [address] [place] [address] PCP - General Physician Geochemical Laboratory Technician 02/17/17 12/15/22 documented as of this encounter
--- OUTSIDE RECORDS SUMMARY | 2024-11-23 10:35 | XMS_ITS | Encounter Summary ---
Author Organization [facility] Address [address] [place] [address] Phone Care Team Providers Care Training Professional Name Role Phone Coco Leos PA-C Primary Care Provider [phone] Provider, No-Primary Care Primary Care Provider Unavailable Encounter Details Date Type Department Care Team (Late st Contact Info) Description 01/07/2018 Pharmacy Visit RX [facility] [address] [place] [phone] Social History Tobacco Use Types Packs/Day [...] Depression Total Score: 14 018 12:18 PM RATINGS ANALYST PHQ-2 Depression Total Score: 5 01/07/20 18 12:18 PM RATINGS ANALYST documented as of this encounter Care Teams Training Professional Relationship Specialty Start Date End Date Coco Leos PA-C [address] [place], [place] [phone] PCP - General Physician Aircraft Loadmaster Superintendent 02/17/17 12/15/22 Provider, No-Primary Care [place] PCP - General 12/16/22 documented as of this encounter
--- OUTSIDE RECORDS SUMMARY | 2024-11-23 10:35 | XMS_ITS | Encounter Summary ---
Author Organization [facility] Care Address [address] [place] [address] Phone Care Team Providers Care Tool And Die Technician Name Role Phone Coco Leos PA-C Primary Care Provider [phone] Provider, No-Primary Care Primary Care Provider Unavailable Encounter Details Date Type Department Care Team (Late st Contact Info) Description 02/09/2018 Pharmacy Visit RX [facility] [address] [place] [phone] Social History Tobacco Use Types Packs/Day [...] Depression Total Score: 14 018 12:18 PM EYELETTER PHQ-2 Depression Total Score: 5 01/07/20 18 12:18 PM EYELETTER documented as of this encounter Care Teams Tool And Die Technician Relationship Specialty Start Date End Date Coco Leos PA-C [address] [place], [place] [phone] PCP - General Physician Ordnance Mechanic 02/17/17 12/15/22 Provider, No-Primary Care [place] PCP - General 12/16/22 documented as of this encounter
--- OUTSIDE RECORDS SUMMARY | 2024-11-23 10:35 | XMS_ITS | Encounter Summary ---
Author Organization [facility] Care Address [address] [place] [address] Phone Care Team Providers Care Caustic Plant Worker Name Role Phone Coco Leos PA-C Primary Care Provider [phone] Provider, No-Primary Care Primary Care Provider Unavailable Encounter Details Date Type Department Care Team (Late st Contact Info) Description 12/09/2017 Pharmacy Visit RX [facility] [address] [place] [phone] Social History Tobacco Use Types Packs/Day [...] Depression Total Score: 12 018 12:31 PM MIXED LIVESTOCK FARM WORKER PHQ-2 Depression Total Score: 5 11/16/19 18 12:31 PM MIXED LIVESTOCK FARM WORKER documented as of this encounter Care Teams Caustic Plant Worker Relationship Specialty Start Date End Date Coco Leos PA-C [address] [place], [place] [phone] PCP - General Physician Landing Signal Officer 02/17/17 12/15/22 Provider, No-Primary Care [place] PCP - General 12/16/22 documented as of this encounter
--- OUTSIDE RECORDS SUMMARY | 2024-11-23 10:35 | XMS_ITS | Encounter Summary ---
Author Organization [facility] Care Address [address] [place] [address] Phone Care Team Providers Care Securities Clerk Name Role Phone Coco Leos PA-C Primary Care Provider [phone] Reason for Visit * Reason Comments Medication Refill Encounter Details Date Type Department Care Team (Late st Contact Info) Description 01/05/2018 Refill [facility] [address] [facility] [address] [place] [phone] Nikko Han, [facility] [address] [place], [place] [phone] Social History Tobacco Use Types Packs/Day Years [...] 01/07/18 Last written: 12/10/17 Prescription destination: I[facility] TENANCE OF WAY FOREMAN * Telephone Encounter - Nikko Han, [facility] - 01/05/2018 9:[address] FOREMAN [facility] Pain Medication Refill Service - Pharmacist Note [...] There are no unexpected entries on the MUSIC VIDEO PRODUCER and refill frequency is every 30 days. Opioid agreement signed 01/12/[address] Leos. Urine Drug Screen: postivie on 07/09/17 as expected Respiratory Depression Risk Score >3; anti-depressant and long acting opioid prescribed, hospital and emergency visit within last 6 months and history of opioid abuse Morphine equivalent dose is 105 mg/day. corporate accountant is available. Emergency intranasal naloxoneis warranted at this time and is on hand. Prescriptions pended for Dr. Leos, last visit: 11/16; return visit: 01/07. Please send orders to [facility] pharmacy for pick-up. Thank you, Zain Han [facility] Pharmacy TENANCE OF WAY FOREMAN documented in this encounter Plan of Treatment Not on file documented as of this encounter Visit Diagnoses Diagnosis Other chronic pain documented in this encounter Additional Health Concerns Assessment Noted Time PHQ-9 Depression Total Score: 12 018 12:[address] FOREMAN PHQ-2 Depression Total Score: 5 11/16/19 18 12:[address] FOREMAN documented as of this encounter Care Teams Securities Clerk Relationship Specialty Start Date End Date Coco Leos PA-C [address] [place] [id number] PCP - General Physician Systems Designer 02/17/17 12/15/22 documented as of this encounter
--- OUTSIDE RECORDS SUMMARY | 2024-11-23 10:35 | XMS_ITS | Encounter Summary ---
Author Organization [facility] Care Address [address] [place] [address] Phone Care Team Providers Care Retail Client Solutions Consultant Name Role Phone Coco Leos PA-C Primary Care Provider [phone] Reason for Referral * Radiology Services (Routine) - Closed Specialty Diagnoses / Procedures Referred By Contac t Referred To Contact Radiology Diagnoses Arthritis Neck pain Cervical radiculopathy at C7 Procedures MRI SPINE CERVICAL WO CONTRAST (36169) Coco Leos PA-C [address] [place] [address] Phone: tel: fax: [facility] - Radiology - MRI [address] [place] [address] Phone: tel: fax: Referral ID Status Reason Start Date Expiration Date Visits Re quested Visits Authorized [id number] Closed 01/07/2018 1 1 PRESIDENT SAFETY Reason for Visit * Reason Comments Follow-up 4wk rtn Encounter Details Date Type Department Care Team (Late st Contact Info) Description 01/07/2018 10:45 AM VICE PRESIDENT SAFETY Office Visit [facility] [address] [place] [address] [place] [phone] Coco Leos PA-C [address] [place] [address] Mechelle Bon Martin [address] [place] [phone] Social History Tobacco Use Types Packs/Day Years [...] Comments Blood Pressure 115/73 01/07/2018 10:04 AM VICE PRESIDENT SAFETY Pulse 79 01/07/2018 10:04 AM VICE PRESIDENT SAFETY Temperature - - Respiratory Rate - - Oxygen Saturation - - Inhaled Oxygen Concentration - - Weight 90.5 kg (199 lb 8.3 oz) 01/07/2018 10:04 AM VICE PRESIDENT SAFETY Height - - Body Mass Index 27.84 12/28/2017 9:27 AM VICE PRESIDENT SAFETY documented in this encounter Patient Instructions * Discharge Instructions* Coco Leos PA-C - 01/07/2018 12:02 PM VICE PRESIDENT SAFETY ICD-10-CM ICD-9-CM 1. Arthritis M19.90 716.90 diclofenac 1 % topical gel MRI SPINE CERVICAL WO CONTRAST (36951) try topical diclofenac gel to the neck, [...] M54.2 723.1 MRI SPINE CERVICAL WO CONTRAST (22000) 5. Cervical radiculopathy at C7 M54.12 723.4 MRI SPINE CERVICAL WO CONTRAST ([id number]) MRI ordered, they will call you when approved to schedule. PRESIDENT SAFETY documented in this encounter Progress Notes * Coco Leos PA-C - 01/07/2018 10:45 AM CST Clinic Note Encounter Date: 01/07/2018 Subjective: Chief Complaint: Chief Complaint Patient presents with ??? Follow-up 4wk rtn History of Present Illness:Edilberto Hawley is a 62 y.o. Established pt whom I am familiar with, presents to the Department of Family Medicine [facility] for hospital follow up. He was seen [...] worker's compensation claim 04/16/2017 Back 05/11/2017 ??? FPC current use of opiate analgesic 05/11/2017 ??? 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 He also complted neuropsych eval which felt he was back to baseline. The psychologist performing his neuropsych evaluation felt he had significant depression. He started duloxetine in September, symptoms unchanged at October follow up and dose was increased to 40 mg. The following week, he presented to his [employer] appt and was sent to the ED [...] topical gel MRI SPINE CERVICAL WO CONTRAST ([id number]) try topical diclofenac gel to the neck, [...] M54.2 723.1 MRI SPINE CERVICAL WO CONTRAST (76015) 5. Cervical radiculopathy at C7 M54.12 723.4 MRI SPINE CERVICAL WO CONTRAST ([id number]) Follow Up FOLLOW-UP: 2 Months Question Answer Comment Return In: 2 Months Appt Duration: 45 mins Appointment Day: Any Day Schedule with: betito Return Reason: chronic pain, depression, Product Marketing Specialist Needed (specify language)? No Coco Leos PA-C [facility] [address] [place] [address] [address] [place] [address] PRESIDENT SAFETY documented in this encounter Plan of Treatment Not on file documented as of this encounter Results * MRI SPINE CERVICAL WO CONTRAST ([id number]) (01/11/2018 6:32 PM VICE PRESIDENT SAFETY) Anatomical Region Laterality Modality Spine Magnetic Resonan ce Impressions 01/12/2018 11:07 AM VICE PRESIDENT SAFETY Impression: 1. The most significant central spinal stenosis is at C6-7 with moderate stenosis. 2. The neural foramen show severe bilateral narrowing at C4-5 with moderate narrowing at C34 and C5-6. Narrative 01/12/2018 11:07 AM VICE PRESIDENT SAFETY Procedure: MRI SPINE CERVICAL WO CONTRAST ([id number]) Indication: C7 radicular symptoms in left upper [...] 01/12/2018 Procedure: MRI SPINE CERVICAL WO CONTRAST ([id number]) Indication: C7 radicular symptoms in left upper [...] Depression Total Score: 14 018 12:18 PM VICE PRESIDENT SAFETY PHQ-2 Depression Total Score: 5 01/07/20 18 12:18 PM VICE PRESIDENT SAFETY documented as of this encounter Care Teams Retail Client Solutions Consultant Relationship Specialty Start Date End Date Coco Leos PA-C [address] [place], [place] [phone] PCP - General Physician Environmental Field Team Member 02/17/17 12/15/22 documented as of this encounter
--- OUTSIDE RECORDS SUMMARY | 2024-11-23 10:36 | XMS_ITS | Encounter Summary ---
Author Organization [facility] Care Address [address] [place] [address] Phone Care Team Providers Care Registered Physical Therapist Name Role Phone Coco Leos PA-C Primary Care Provider [phone] Reason for Visit * Reason Comments Patient Reported Reason For Visit [facility] REFERRAL FOR ACUTE PAIN ON CHRONIC BACK PAIN AND HEAQDACHES * Internal Referral (Routine) - Closed Specialty Diagnoses / Procedures Referred By Contac t Referred To Contact Orthopaedic Diagnoses History of concussion Low back pain, unspecified back pain laterality, unspecified chronicity, with sciatica presence unspecified Estevan Johnson MD [address] [place] [address] Phone: tel: fax: [facility] - Spine [address] [place] [address] Phone: tel: fax: Referral ID Status Reason Start Date Expiration Date Visits Re quested Visits Authorized [id number] Closed 09/24/2017 1 1 Encounter Details Date Type Department Care Team (Late st Contact Info) Description 10/12/2017 3:00 PM TECHNOLOGY APPLICATIONS ENGINEER Office Visit [facility] Orthopedics - Physical Medicine and Rehab [address] [place] [phone] Coco Barth, PhD [address] [place] [address] Social History Tobacco Use Types Packs/Day Years [...] 5:30 Mr. Hawley was delayed in Orthopedic floor scrubber, not being directed back to our clinic. [...] related injury. He reported he has a baby sitter who is assisting him with his worker's compensation claim. He said he hired an litigation attorney associate because of conflict with worker's compensation. 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 Is currently working at [employer] as part of his worker's compensation assignment. [...] Summary: I spent 90 minutes in a [id number] session with Edilberto Hawley gathering history of [...] Ph.D. Licensed Psychologist Licensed Health Service Provider NOLOGY APPLICATIONS ENGINEER documented in this encounter Miscellaneous Notes * Communication Body - Bessy Colin - 10/12/2017 3:00 PM CST We saw Edilberto Hawley in Orthopaedics at the [facility] on 10/12/17. Enclosed is a copy of our notes. If you have any questions, please call my office. Sincerely, Coco Barth, PhD Clinical Store Keeper Clinical Psychologist [facility] Department of Orthopedics & Rehabilitation Physical Medicine & Rehabilitaion [phone] NOLOGY APPLICATIONS ENGINEER documented in this encounter Plan of [...] documented as of this encounter Care Teams Registered Physical Therapist Relationship Specialty Start Date End Date Coco Leos PA-C [address] [place] [address] PCP - General Physician Policewoman 02/17/17 12/15/22 documented as of this encounter
--- OUTSIDE RECORDS SUMMARY | 2024-11-23 10:36 | XMS_ITS | Encounter Summary ---
Author Organization [facility] Care Address [address] [place] [address] Phone Care Team Providers Care Housekeeper Cleaning Cooking Name Role Phone Coco Leos PA-C Primary Care Provider [phone] Reason for Visit * Reason Comments Patient Reported Reason For Visit Patient Reported Reason For Visit Encounter Details Date Type Department Care Team (Latest Contact Info) Description 11/16/2017 12:39 PM ACTUARIAL ASSOCIATE - 11/16/2017 11:59 PM [facility] Hospital Encounter [facility] - Radiology [address] [phone] Karen Cruz MD [address] [place] [address] Discharge Disposition: Home or Self [...] needed. 35.44 g 11 01/12/2017 5:22 PM ACTUARIAL ASSOCIATE 01/12/2017 omeprazole 20 mg enteric coated capsule Take 20 mg by mouth daily. sennosides (SENEXON) 8.6 mg tablet Take 1 tablet by mouth 2 times daily as needed. DULoxetine 60 mg XR capsuleIndicatio ns:Other chronic pain,Moderate episode of recurrent major depressive disorder (HCC) Take 1 capsule (60 mg total) by mouth daily. 30 capsule 11 11/16/2017 1:10 PM ACTUARIAL ASSOCIATE 11/16/2017 8 naloxone 1 mg/mL injection syringe [...] Date: 11/10/17 60 tablet 11/16/2017 1:10 PM ACTUARIAL ASSOCIATE 11/10/2017 8 oxyCODONE-acetam inophen 10-325 mg per tabletIndication s:Other chronic pain Take 1 tablet by mouth every 4 hours as needed for Pain. Earliest Fill Date: 11/10/17 120 tablet 11/16/2017 1:10 PM ACTUARIAL ASSOCIATE 11/10/2017 8 documented as of this encounter Plan of Treatment Not on file documented as of this encounter Procedures Procedure Name Priority Date/Time Associated Diagnosis Comments HIP & [facility] RIGHT Routine 11/16/2017 12:46 PM ACTUARIAL ASSOCIATE Right hip pain documented in this encounter Results * HIP AP & [place] RIGHT (11/16/2017 12:46 PM ACTUARIAL ASSOCIATE) Anatomical Region Laterality Modality lower extremity Computed Radiogr aphy Impressions 11/16/2017 5:02 PM ACTUARIAL ASSOCIATE Findings / Impression: No acute fracture or dislocation. Joint spaces well-maintained. Unremarkable exam. Narrative 11/16/2017 5:02 PM ACTUARIAL ASSOCIATE Procedure: HIP AP & LA[place]IN RIGHT Clinical [...] Depression Total Score: 12 018 12:31 PM ACTUARIAL ASSOCIATE PHQ-2 Depression Total Score: 5 11/16/19 18 12:31 PM ACTUARIAL ASSOCIATE documented as of this encounter Care Teams Housekeeper Cleaning Cooking Relationship Specialty Start Date End Date Coco Leos PA-C [address] [place] [id number] PCP - General Physician Field Staff Manager 02/17/17 12/15/22 documented as of this encounter
--- OUTSIDE RECORDS SUMMARY | 2024-11-23 10:36 | XMS_ITS | Encounter Summary ---
Author Organization [facility] Care Address [address] [place] [address] Phone Care Team Providers Care Truck Packer Name Role Phone Coco Leos PA-C Primary Care Provider [phone] Reason for Visit * Reason Comments Patient Reported Reason For Visit WC RTN HEAD INJURY Encounter Details Date Type Department Care Team (Late st Contact Info) Description 11/03/2017 11:00 AM ORTHOPEDIC SHOES SALESPERSON Office Visit [facility] Orthopedics - Work Injury Recovery [address] [place] [phone] Estevan Johnson MD [address] [place], [place] [phone] Social History Tobacco Use Types Packs/Day Years [...] Comments Blood Pressure 138/79 11/03/2017 10:53 AM ORTHOPEDIC SHOES SALESPERSON Pulse 72 11/03/2017 10:53 AM ORTHOPEDIC SHOES SALESPERSON Temperature 36.3 ??C (97.3 ??F) 11/03/2017 10:[address] Respiratory Rate - - Oxygen Saturation - - Inhaled Oxygen Concentration - - Weight 89.9 kg (198 lb 3.1 oz) 11/03/2017 10:53 AM ORTHOPEDIC SHOES SALESPERSON Height 180.3 cm (5' 11 ) 11/03/2017 10:53 AM ORTHOPEDIC SHOES SALESPERSON Body Mass Index 27.64 11/03/2017 10:53 AM ORTHOPEDIC SHOES SALESPERSON documented in this encounter Progress Notes * [...] based on testing and clinical exam with [address]-Hallpike maneuver was negative. The production supervisor off shift testing prior to the ENT visit indicated that his dizziness has mostly resolved. Current symptoms: The patient currently has back, left shoulder, and left thigh pain. His headachesare not currently present. He has some concerns with both requested of him regarding work. He has been working at [employer] but notes that as the day goes [...] to this, he can be considered at [facility] as of this date. There are restrictions [...] Rehabilitation Service Department of Orthopaedics & Rehabilitation [phone] Addendum (12/03/17): I have reviewed this note as there was a discrepancy between the activity status printed out on 11/03/17 and the last sentence of line 1 above in plan. The activity status wasaccurate, the word no was inadvertently left out of line 1. It should read There are NO restrictions with regard to this diagnosis. OPEDIC SHOES SALESPERSON OPEDIC SHOES SALESPERSON documented in this encounter Miscellaneous Notes * Communication Body - Bessy Colin - 11/03/2017 11:00 AM CST We saw Edilberto Hawley in Orthopaedics at the [facility] on 11/03/17. Enclosed is a copy of our notes. If you have any questions, please call my office. Sincerely, Estevan Johnson MD Physical Medicine & Rehabilitation Service Department of Orthopedics & Rehabilitation [phone] OPEDIC SHOES SALESPERSON documented in this encounter Plan of Treatment Not on file documented as of this encounter Visit Diagnoses Diagnosis History of concussion- Primary Personal history of traumatic brain injury Polyneuropathy Unspecified hereditary and idiopathic peripheral neuropathy documented in this encounter Additional Health Concerns Assessment Noted Time PHQ-2 Depression Total Score: 0 10/20/20 17 9:51 AM ORTHOPEDIC SHOES SALESPERSON documented as of this encounter Care Teams Truck Packer Relationship Specialty Start Date End Date Coco Leos PA-C [address] [place], [place] [phone] PCP - General Physician Health Professor 02/17/17 12/15/22 documented as of this encounter
--- OUTSIDE RECORDS SUMMARY | 2024-11-23 10:36 | XMS_ITS | Encounter Summary ---
Author Organization [facility] Care Address [address] [place] [address] Phone Care Team Providers Care Label Folder Name Role Phone Coco Leos PA-C Primary Care Provider [phone] Provider, No-Primary Care Primary Care Provider Unavailable Encounter Details Date Type Department Care Team (Late st Contact Info) Description 11/19/2017 Pharmacy Visit RX [facility] [address] [place] [phone] Social History Tobacco Use Types Packs/Day [...] Depression Total Score: 12 018 12:31 PM HOSPITALITY HOUSEKEEPER PHQ-2 Depression Total Score: 5 11/16/19 18 12:31 PM HOSPITALITY HOUSEKEEPER documented as of this encounter Care Teams Label Folder Relationship Specialty Start Date End Date Coco Leos PA-C [address] [place], [place] [phone] PCP - General Physician Saddle Cutter 02/17/17 12/15/22 Provider, No-Primary Care [place] PCP - General 12/16/22 documented as of this encounter
--- OUTSIDE RECORDS SUMMARY | 2024-11-23 10:36 | XMS_ITS | Encounter Summary ---
Author Organization [facility] Care Address [address] [place] [address] Phone Care Team Providers Care Manager Dairy Name Role Phone Coco Leos PA-C Primary Care Provider [phone] Provider, No-Primary Care Primary Care Provider Unavailable Encounter Details Date Type Department Care Team (Late st Contact Info) Description 12/06/2017 Pharmacy Visit RX [facility] [address] [place] [phone] Social History Tobacco Use Types Packs/Day [...] Depression Total Score: 12 018 12:31 PM VENDOR MANAGEMENT ASSOCIATE PHQ-2 Depression Total Score: 5 11/16/19 18 12:31 PM VENDOR MANAGEMENT ASSOCIATE documented as of this encounter Care Teams Manager Dairy Relationship Specialty Start Date End Date Coco Leos PA-C [address] [place], [place] [phone] PCP - General Physician Daycare Assistant 02/17/17 12/15/22 Provider, No-Primary Care [place] PCP - General 12/16/22 documented as of this encounter
--- OUTSIDE RECORDS SUMMARY | 2024-11-23 10:36 | XMS_ITS | Encounter Summary ---
Author Organization [facility] Care Address [address] [place] [address] Phone Care Team Providers Care Licensed Sales Producer Name Role Phone Coco Leos PA-C Primary Care Provider [phone] Provider, No-Primary Care Primary Care Provider Unavailable Encounter Details Date Type Department Care Team (Late st Contact Info) Description 11/25/2017 Pharmacy Visit RX [facility] [address] [place] [phone] Social History Tobacco Use Types Packs/Day [...] Depression Total Score: 12 018 12:31 PM ARCHAEOLOGIST PHQ-2 Depression Total Score: 5 11/16/19 18 12:31 PM ARCHAEOLOGIST documented as of this encounter Care Teams Licensed Sales Producer Relationship Specialty Start Date End Date Coco Leos PA-C [address] [place], [place] [phone] PCP - General Physician Airport Location Manager 02/17/17 12/15/22 Provider, No-Primary Care [place] PCP - General 12/16/22 documented as of this encounter
--- OUTSIDE RECORDS SUMMARY | 2024-11-23 10:36 | XMS_ITS | Encounter Summary ---
Author Organization [facility] Care Address [address] [place] [address] Phone Care Team Providers Care Transfer Car Operator Name Role Phone Coco Leos PA-C Primary Care Provider [phone] Provider, No-Primary Care Primary Care Provider Unavailable Encounter Details Date Type Department Care Team (Late st Contact Info) Description 11/09/2017 Pharmacy Visit RX [facility] [address] [place] [phone] Social History Tobacco Use Types Packs/Day [...] Total Score: 0 10/20/20 17 9:51 AM MAIL HANDLER EQUIPMENT OPERATOR documented as of this encounter Care Teams Transfer Car Operator Relationship Specialty Start Date End Date Coco Leos PA-C [address] [place], [place] [phone] PCP - General Physician Torch Straightener And Heater 02/17/17 12/15/22 Provider, No-Primary Care [place] PCP - General 12/16/22 documented as of this encounter
--- OUTSIDE RECORDS SUMMARY | 2024-11-23 10:36 | XMS_ITS | Encounter Summary ---
Author Organization [facility] Care Address [address] [place] [address] Phone Care Team Providers Care Wine Steward/Stewardess Name Role Phone Coco Leos PA-C Primary Care Provider [phone] Provider, No-Primary Care Primary Care Provider Unavailable Encounter Details Date Type Department Care Team (Late st Contact Info) Description 10/25/2017 Pharmacy Visit RX [facility] [address] [place] [phone] Social History Tobacco Use Types Packs/Day [...] Total Score: 0 10/20/20 17 9:51 AM PERFORMANCE TEST ARCHITECT documented as of this encounter Care Teams Wine Steward/Stewardess Relationship Specialty Start Date End Date Coco Leos PA-C [address] [place], [place] [phone] PCP - General Physician Car Wash Attendant Automatic 02/17/17 12/15/22 Provider, No-Primary Care [place] PCP - General 12/16/22 documented as of this encounter
--- OUTSIDE RECORDS SUMMARY | 2024-11-23 10:36 | XMS_ITS | Encounter Summary ---
Author Organization [facility] Care Address [address] [place] [address] Phone Care Team Providers Care Sizing Sprayer Name Role Phone Coco Leos PA-C Primary Care Provider [phone] Reason for Visit * Reason Comments Patient Reported Reason For Visit audio/ alecia Encounter Details Date Type Department Care Team (Late st Contact Info) Description 11/03/2017 8:30 AM CUTTER MACHINE TENDER Ancillary Office Visit [facility] Otolaryngology - Speech and Hearing [address] [place] [phone] Froylan Alexis [address] [place], [place] [phone] ([id number]), [place] Audiogram Non Reso [facility] [place], [place] [phone] Social History Tobacco Use Types Packs/Day Years [...] left ear. Rec: amplification. Desire Frias M.A. [facility] Candy Butcher II Director, Audiology Clinic ER MACHINE TENDER documented in this encounter Plan of Treatment Not on file documented as of this encounter Visit Diagnoses Diagnosis Sensorineural hearing loss, bilateral Tinnitus, bilateral Unspecified tinnitus documented in this encounter Additional Health Concerns Assessment Noted Time PHQ-2 Depression Total Score: 0 10/20/20 17 9:51 AM CUTTER MACHINE TENDER documented as of this encounter Care Teams Sizing Sprayer Relationship Specialty Start Date End Date Coco Leos PA-C [address] [place] [phone] PCP - General Physician Spray Foam Installer 02/17/17 12/15/22 documented as of this encounter
--- OUTSIDE RECORDS SUMMARY | 2024-11-23 10:36 | XMS_ITS | Encounter Summary ---
Author Organization [facility] Care Address [address] [place] [address] Phone Care Team Providers Care Tortilla Maker Name Role Phone Coco Leos PA-C Primary Care Provider [phone] Reason for Visit * Reason Comments Follow-up 4 wk rtn 45 min Encounter Details Date Type Department Care Team (Late st Contact Info) Description 10/20/2017 11:00 AM GEARCASE ASSEMBLER Office Visit [facility] [address] [place] [phone] Bon Min [address] [place], [place] [phone] Coco Leos PA-C [address] [place], [place] [phone] Social History Tobacco Use Types Packs/Day Years [...] Comments Blood Pressure 119/75 10/20/2017 9:38 AM GEARCASE ASSEMBLER Pulse 73 10/20/2017 9:38 AM GEARCASE ASSEMBLER Temperature 36.4 ??C (97.5 ??F) 10/20/2017 9:30 AM CS T Respiratory Rate - - Oxygen Saturation - - Inhaled Oxygen Concentration - - Weight 88.3 kg (194 lb 10.7 oz) 10/20/2017 9:30 AM GEARCASE ASSEMBLER Height - - Body Mass Index 27.56 09/29/2017 2:08 PM GEARCASE ASSEMBLER documented in this encounter Patient Instructions * Discharge Instructions* Coco Leos PA-C - 10/20/2017 11:55 AM GEARCASE ASSEMBLER Medication changes: STOP Gabapentin. Increase duloxetine, stop 30 mg, start 40 mg. Decrease propranolol, stop 80 mg, start 60 mg. Follow up in 5-6 weeks. Medications ordered/refilled this visit Medications ??? DULoxetine 40 mg XR capsule ??? propranolol 60 mg XR capsule CASE ASSEMBLER documented in this encounter Progress Notes * Coco Leos PA-C - 10/20/2017 11:00 AM CST Clinic Note Encounter Date: 10/20/2017 Subjective: Chief Complaint: Chief Complaint Patient presents with ??? Follow-up 4 wk rtn 45 min History of Present Illness:Edilberto Hawley is a 62 y.o. Established pt whom I am familiar with, presents to the Department of Family Medicine [facility] for 1 month follow up chronic pain management and post concussion syndrome. Pleasant 61-year-old male with chronic pain on chronic narcotic contract with me since Dec 2016. Hewas previously followed by a physician in [place] and past records have been obtained, reviewed and are scanned into media portion of the chart. In April he suffered an injury at work resulting in lumbar spine fracture, head laceration and shoulder injury. Still being followed by work well clinic in [place]. Since that incident he has been having left lumbar radicular symptoms and L3-L4 pattern to the level of the knee. He was also having symptoms consistent with postconcussion syndrome including headaches, dizziness, fatigue, memory problems, concentration problems. He did have a Brain MRI through [facility] in and it was normal. He had [...] has been followed by [facility] in [place] and ortho spine at [facility]. The [facility]well doctors would like [...] going to see a Dr. Mendez through [facility] in December. He is no longer doing [...] receiving medications through us and utilizing the [facility]. He reports that he is [...] worker's compensation claim 04/16/2017 Back 05/11/2017 ??? salvage determiner current use of opiate analgesic 05/11/2017 ??? [...] History Narrative Mr. 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 Since that incident he is having left [...] V54.17 ortho spine has released him. 4. salvage determiner current use of opiate analgesic Z79.891 V58.69 [...] decreasomg to 60 mg. Coco Leos PA-C [facility] of Family Medicine [address] [place] [address] CASE ASSEMBLER documented in this encounter Miscellaneous Notes * Addendum Note - Coco Leos PA-C - 10/20/2017 11:00 AM CSTEncounter addended by: Coco Leos PA-C on: 10/28/2017 8:32 AM
Actions taken: Letterstatus changed CASE ASSEMBLER * Addendum Note - Rene Elkins - 10/20/2017 11:00 AM CSTEncounter addended by: Rene Elkins on: 10/28/2017 9:10 AM
Actions taken: Letter status changed CASE ASSEMBLER documented in this encounter Plan of Treatment Not on file documented as of this encounter Procedures Procedure Name Priority Date/Time Associated Diagnosis Comments FOLATE Routine 10/20/2017 12:25 PM GEARCASE ASSEMBLER Peripheral sensory-motor axonal polyneuropathy VITAMIN E, SERUM Routine 10/20/2017 12:2 4 PM GEARCASE ASSEMBLER Peripheral sensory-motor axonal polyneuropathy VITAMIN B1, WHOLE BLOOD Routine 10/20/2017 12:24 PM GEARCASE ASSEMBLER Peripheral sensory-motor axonal polyneuropathy VITAMIN B12 Routine 10/20/2017 12:24 PM GEARCASE ASSEMBLER Peripheral sensory-motor axonal polyneuropathy documented in this encounter Results * FOLATE (10/20/2017 12:25 PM GEARCASE ASSEMBLER) Folate 8.2 >=4.1 ng/mL 10/20/2017 10:46 PM GEARCASE ASSEMBLER [facility] Blood specimen (specimen) Venipuncture / Unknown 10/20/2017 12:25 PM GEARCASE ASSEMBLER 10/20/2017 1:48 PM GEARCASE ASSEMBLER Narrative [facility] - 10/20/2017 10:46 PM GEARCASE ASSEMBLER Normal ?>4.1 ?ng/mL Indeterminant ? 2.2 - [...] Leos PA-C CHEMISTRY ORDERABLES Final R esult [facility] [address] [place] [address] * VITAMIN E, SERUM (10/20/2017 12:24 PM GEARCASE ASSEMBLER) Vitamin E, Alpha-Tocopherol 6.5 5.5 - 18.0 mg/L 10/27/2017 7:19 AM GEARCASE ASSEMBLER [employer] Comment: Test developed and characteristics determined by [facility]. See Compliance Statement B: [email or web address]/CS Vitamin E, Gamma-Tocopherol 1.7 0.0 - 6.0 mg/L 10/27/2017 7:19 AM GEARCASE ASSEMBLER [employer] Comment: Performed by [facility], [address] [place] [id number] [email or web address], Jovon Aguirre MD, Lab. Director Blood specimen (specimen) Venipuncture / Unknown 10/20/2017 12:24 PM GEARCASE ASSEMBLER 10/20/2017 1:48 PM GEARCASE ASSEMBLER Narrative [facility] - 10/27/2017 7:19 AM GEARCASE ASSEMBLER Specimen Source: Specimen Start Date: [id number] Coco Leos PA-C MAILOUT - BLOOD Final Result Performing Organization Address [facility] de Phone Number [employer] [phone] * VITAMIN B1, WHOLE BLOOD (10/20/2017 12:24 PM GEARCASE ASSEMBLER) Pathologist [facility] Vitamin B1 (Thiamine) 118 70 - 180 nmol/L 10/25/2017 3:06 PM GEARCASE ASSEMBLER [facility] Comment: INTERPRETIVE INFORMATION: Vitamin B1, Whole Blood This assay measures the concentration of thiamine diphosphate (TDP), the primary active form of vitamin B1. Approximately 90 percent of vitamin B1 present in whole blood is TDP. Thiamine and thiamine monophosphate, which comprise the remaining 10 percent, are not measured. Test developed and characteristics determined by [facility]. See Compliance Statement B: [email or web address]/ Performed by [facility], [address] [place] [id number] [email or web address], Jovon Aguirre MD, Lab. Director Blood specimen (specimen) Venipuncture / Unknown 10/20/2017 12:24 PM GEARCASE ASSEMBLER 10/20/2017 12:44 PM GEARCASE ASSEMBLER Narrative [facility] - 10/25/2017 3:06 PM GEARCASE ASSEMBLER Specimen Source: Specimen Start Date: [id number] Coco Leos PA-C MAILOUT - BLOOD Final Result Performing Organization Address [facility] Co de Phone Number [address] [phone] * VITAMIN B12 (10/20/2017 12:24 PM GEARCASE ASSEMBLER) Pathologist [facility] Vitamin B12 464 211 - 946 pg/mL 10/20/2017 1:30 PM GEARCASE ASSEMBLER [facility] Comment: New analytical immunoassay with different reference range instituted 10/10/2013 AT 830AM Normal ? 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 Closed fracture of transverse process of lumbar vertebra with routine healing [facility] current use of opiate analgesic Encounter for long-term (current) use of other medications Other chronic pain Nonintractable headache, unspecified chronicity pattern, unspecified headache type documented in this encounter Additional Health Concerns Assessment Noted Time PHQ-2 Depression Total Score: 0 10/20/20 17 9:51 AM GEARCASE ASSEMBLER documented as of this encounter Care Teams Tortilla Maker Relationship Specialty Start Date End Date Coco Leos PA-C [address] [place] [address] PCP - General Physician Electronics Tester 02/17/17 12/15/22 documented as of this encounter
--- OUTSIDE RECORDS SUMMARY | 2024-11-23 10:36 | XMS_ITS | Encounter Summary ---
Author Organization [facility] Care Address [address] [place] [address] Phone Care Team Providers Care Tobacco Sprayer Name Role Phone Coco Leos PA-C Primary Care Provider [phone] Provider, No-Primary Care Primary Care Provider Unavailable Encounter Details Date Type Department Care Team (Late st Contact Info) Description 11/16/2017 Pharmacy Visit [facility] [address] [place] [phone] Social History Tobacco Use Types Packs/Day [...] Depression Total Score: 12 018 12:31 PM CONTRACT ANALYST PHQ-2 Depression Total Score: 5 11/16/19 18 12:31 PM CONTRACT ANALYST documented as of this encounter Care Teams Tobacco Sprayer Relationship Specialty Start Date End Date Coco Leos PA-C [address] [place], [place] [phone] PCP - General Physician Photogrammetric Technician 02/17/17 12/15/22 Provider, No-Primary Care [place] PCP - General 12/16/22 documented as of this encounter
--- OUTSIDE RECORDS SUMMARY | 2024-11-23 10:36 | XMS_ITS | Encounter Summary ---
Author Organization [facility] Care Address [address] [place] [address] Phone Care Team Providers Care Fur Dry Cleaner Name Role Phone Coco Leos PA-C Primary Care Provider [phone] Provider, No-Primary Care Primary Care Provider Unavailable Reason for Visit * Reason Comments Medication Refill Encounter Details Date Type Department Care Team (Late st Contact Info) Description 12/06/2017 Refill [facility] [address] [facility] [address] [place] [phone] Nikko Han, [facility] [address] [place], [place] [phone] Social History Tobacco Use Types Packs/Day Years [...] Coco Leos PA-C - 12/06/2017 10:41 AM ENTRY LEVEL CHEMIST I am reducing # of prn to 90. This was discussed with pt at last visit. Coco Leos PA-C, 12/06/2017 10:41 AM Y LEVEL CHEMIST * Telephone Encounter - Dayanna Escamilla - 12/06/2017 10:16 AM CST Pharmacy is requesting refill of: oxycodone-APAP, oxycontin Last visit: 11/16/17 Next visit: 12/14/17 Last written: 11/10/17 Prescription destination: [facility] Y LEVEL CHEMIST * Telephone Encounter - Nikko Han [facility] - 12/06/2017 9:30 AM ENTRY LEVEL CHEMIST IR Pain Medication Refill Service - Pharmacist [...] There are no unexpected entries on the [employer] SALES and refill frequency isevery 30 days. Opioid agreement signed 01/12/[address] Leos. Urine Drug Screen: 07/09/17 postiive as expected. Respiratory Depression Risk Score >3; anti-depressant and long acting opioid prescribed, hospital and emergency visit within last 6 months and history of opioid abuse Morphine equivalent dose is 105 mg/day. corporate associate attorney is available. Emergency intranasal naloxoneis warranted at this time and is on hand. Prescriptions pended for Dr. Leos PAC, last visit: 11/16; return visit: 12/14. Please send orders to [facility] pharmacy for pick-up. Thank you, Zain Han [facility] pharmacy Y LEVEL CHEMIST documented in this encounter Plan of Treatment Not on file documented as of this encounter Visit Diagnoses Diagnosis Other chronic pain documented in this encounter Additional Health Concerns Assessment Noted Time PHQ-9 Depression Total Score: 12 018 12:31 PM ENTRY LEVEL CHEMIST PHQ-2 Depression Total Score: 5 11/16/19 18 12:31 PM ENTRY LEVEL CHEMIST documented as of this encounter Care Teams Fur Dry Cleaner Relationship Specialty Start Date End Date Coco Leos PA-C [address] [place] [phone] PCP - General Physician Main Line Station Engineer 02/17/17 12/15/22 Provider, No-Primary Care [place] PCP - General 12/16/22 documented as of this encounter
--- OUTSIDE RECORDS SUMMARY | 2024-11-23 10:36 | XMS_ITS | Encounter Summary ---
Author Organization [facility] Care Address [address] [place] [address] Phone Care Team Providers Care Professor Of Visual Arts Name Role Phone Coco Leos PA-C Primary Care Provider [phone] Reason for Visit * Reason Comments Patient Reported Reason For Visit Encounter Details Date Type Department Care Team (Late st Contact Info) Description 10/20/2017 12:20 PM COOL ROOFING INSTALLER Lab Only [facility] [address] [place] [phone] Coco Leos PA-C [address] [place], [place] [phone] Lab Services, Ir Social History Tobacco Use [...] Total Score: 0 10/20/20 17 9:51 AM COOL ROOFING INSTALLER documented as of this encounter Care Teams Professor Of Visual Arts Relationship Specialty Start Date End Date Coco Leos PA-C [address] [place], [place] [phone] PCP - General Physician Signal Helper 02/17/17 12/15/22 documented as of this encounter
--- OUTSIDE RECORDS SUMMARY | 2024-11-23 10:36 | XMS_ITS | Encounter Summary ---
Author Organization [facility] Care Address [address] [place] [address] Phone Care Team Providers Care Milling Machine Operator Name Role Phone Coco Leos PA-C Primary Care Provider [phone] Reason for Visit * Reason Comments Patient Reported Reason For Visit nwp/Sk in lesion of right ear/rph is pcp * Referral (E. Within 3 months) - Closed Specialty Diagnoses / Procedures Referred By Celine t Referred To Contact Dermatology Diagnoses Skin lesion of right ear Coco Leos PA-C [address] [place] [address] Phone: tel: fax: [facility] [address] [place] [phone] Phone: tel: fax: Referral ID Status Reason Start Date Expiration Date Visits Re quested Visits Authorized [id number] Closed 07/09/2017 12/31/2018 1 1 Encounter Details Date Type Department Care Team (Late st Contact Info) Description 10/18/2017 3:00 PM CARD FIXER Office Visit [facility] Dermatology [address] [place] [phone] Default, Other [facility]o [address] [place] [phone] Beatrice Carey [address] [place], [place] [phone] Ambreen Arciniega Social History Tobacco Use Types [...] Instructions* Dea Venegas - 10/18/2017 2:47 PM CARD FIXER Many of the spots today are sun [...] or warmth around wound Call if questions: [facility], Wednesday-Wednesday 8:00 a.m. to 5:00 p.m. (Nursing) OR After hours, weekends and holidays, call the [facility] Call Center at . Ask for the Dermatology resident sales commissions analyst OR 24 hours a day call toll-free and ask for the Dermatology resident sales commissions analyst. How should I care for my wound [...] my wound? Wash hands or use hand manager of regulatory affairs before and after all wound care ??? [...] new, changing, nonhealing or symptomatic skin lesions. 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 After back injury in 04/2017 has been working light duty at [employer] Social History Substance Use Topics ??? Smoking [...] trouble coping. States he is admitted in [place] across the street from the [facility] clinic (assume he is at [facility]). Brother reports he will likely be out [...] 6 month follow up. Ambreen Arciniega MD FIXER FIXER FIXER FIXER FIXER documented in this encounter Miscellaneous Notes * Addendum Note - Ambreen Arciniega MD - 10/18/2017 3:00 PM CSTAddended by: AMBREEN ARCINIEGA on: 11/30/2017 04:11 PM Modules accepted: Orders FIXER * Addendum Note - Beatrice Carey MD - 10/18/2017 3:00 PM CSTEncounter addended by: Beatrice Carey MD on: 12/01/2017 2:28 PM
Actions taken: Letter status changed FIXER * Addendum Note - Ambreen Arciniega MD - 10/18/2017 3:00 PM CSTEncounter addended by: Ambreen Arciniega MD on: 12/01/2017 3:40 PM
Actions taken: Letter status changed FIXER documented in this encounter Plan of Treatment Not on file documented as of this encounter Procedures Procedure Name Priority Date/Time Associated Diagnosis Comments BX XTRNL EAR Routine 11/30/2017 4:11 PM CARD FIXER Neoplasm of uncertain behavior of skin DSTRJ ALL PRMLG 2-14 EA Routine 11/30/19 18 4:11 PM CARD FIXER Actinic keratoses DSTRJ ALL PRMLG 1ST LES Routine 11/30/19 18 4:11 PM CARD FIXER Actinic keratoses DERMATOPATHOLOGY EXAM Routine 10/18/2017 2:47 PM CARD FIXER Neoplasm of uncertain behavior of skin documented in this encounter Results * DSTRJ ALL PRMLG 1ST LES, DSTRJ ALL PRMLG 2-14 EA (11/30/2017 4:11 PM CARD FIXER) Narrative Ambreen Arciniega MD - 11/30/2017 4:11 PM CARD FIXER Ambreen Arciniega MD ? 11/30/2017 ??4:11 PM AK destruction Number of lesions: 13 Additional Procedure Detail: The above described lesions were treated with liquid nitrogen cryotherapy to achieve a freeze border of 1-2 mm. ??Post-cryotherapy wound care instructions were provided. Beatrice Carey DERM PROCEDURE ORDERABLES Ed ited Result - Final * BX XTRNL EAR (11/30/2017 4:11 PM CARD FIXER) Narrative Ambreen Arciniega MD - 11/30/2017 4:11 PM CARD FIXER Ambreen Arciniega MD ? 11/30/2017 ??4:11 PM [...] Final * DERMATOPATHOLOGY EXAM (10/18/2017 2:47 PM CARD FIXER) Case Report Surgical Pathology ?Case: [id number] ? Authorizing Provider: ??Ambreen Arciniega MD ? Collected: ? 10/18/2017 02:47 PM ? Ordering Location: ? Dermatology Clinic ? Received: ?10/18/2017 04:30 PM ? Pathologist: ? Maryellen Bojorquez MD ? Specimen: ?Skin shave, right mid-antihelix ? 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 I have personally reviewed this case and edited the report as necessary. 10/20/2017 12:32 PM [facility] Clinical Information 6 mm skin colored, indurated flat topped papule with erosion. Differential diagnosis: basal cell carcinoma vs squamous cell carcinoma vs actinic keratosis vs other. 10/20/2017 12:32 PM [facility] Gross Description Received in formalin, in a container labeled Edilberto Hawley, hospital number, and right mid-antihelix , is a 0.8 x 0.5 x 0.1 cm coyne-barnett shave biopsy. The specimen is inked, bisected and submitted entirely in A1. AJF/rls 10/20/2017 12:32 PM [facility] Microscopic Description Sections show a skin shave that demonstrates partial to full thickness proliferation of atypical keratinocytes associated with overlying compact hyperkeratosis and parakeratosis. Margins appear uninvolved in the plane of sectioning. Performed by: Leelee Hudson MD, R3/rls 10/20/2017 12:32 PM CARD FIXER [facility] Tissue specimen (specimen) SKIN STRUCTURE / Unknown 10/18/2017 2:47 PM CARD FIXER 10/18/2017 4:30 PM CARD FIXER Comment:6 mm skin colored, i ndurated flat topped papule with erosion. Differential diagnosis: basal cell carcinoma vs squamous cell carcinoma vs actinic keratosis vs other. 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
--- OUTSIDE RECORDS SUMMARY | 2024-11-23 10:36 | XMS_ITS | Encounter Summary ---
Author Organization [facility] Care Address [address] [place] [address] Phone Care Team Providers Care Lapeler Name Role Phone Coco Leos PA-C Primary Care Provider [phone] Provider, No-Primary Care Primary Care Provider Unavailable Encounter Details Date Type Department Care Team (Late st Contact Info) Description 10/09/2017 Pharmacy Visit RX [facility] [address] [place] [phone] Social History Tobacco Use Types Packs/Day [...] documented as of this encounter Care Teams Lapeler Relationship Specialty Start Date End Date Coco Leos PA-C [address] [place], [place] [phone] PCP - General Physician Manager Image 02/17/17 12/15/22 Provider, No-Primary Care [place] PCP - General 12/16/22 documented as of this encounter
--- OUTSIDE RECORDS SUMMARY | 2024-11-23 10:36 | XMS_ITS | Encounter Summary ---
Author Organization [facility] Care Address [address] [place] [address] Phone Care Team Providers Care Support Technician Name Role Phone Coco Leos PA-C Primary Care Provider [phone] Provider, No-Primary Care Primary Care Provider Unavailable Encounter Details Date Type Department Care Team (Late st Contact Info) Description 10/05/2017 Pharmacy Visit RX [facility] PHARMACY [address] [place] [phone] Social History Tobacco Use Types Packs/Day [...] documented as of this encounter Care Teams Support Technician Relationship Specialty Start Date End Date Coco Leos PA-C [address] [place], [place] [phone] PCP - General Physician Warp Worker 02/17/17 12/15/22 Provider, No-Primary Care [place] PCP - General 12/16/22 documented as of this encounter
--- OUTSIDE RECORDS SUMMARY | 2024-11-23 10:36 | XMS_ITS | Encounter Summary ---
Author Organization [facility] Care Address [address] [place] [address] Phone Care Team Providers Care Neurology Professor Name Role Phone Stephanie Giron PA-C Primary Care Provider [phone] Reason for Referral * Internal Referral (D. Within 4 weeks) - Closed Specialty Diagnoses / Procedures Referred By Celine t Referred To Contact Anesthesiology Diagnoses Other chronic pain Stephanie Giron PA-C [address] [place] [address] Phone: tel: fax: [facility] - Anesthesia - Chronic Pain [address] [place] [address] Phone: tel: fax: Referral ID Status Reason Start Date Expiration Date Visits Re quested Visits Authorized [id number] Closed 11/16/2017 1 1 Question Answer Priority: D. Within 4 weeks Requested Action: Referral (Transfer of care) Faculty Physician/Staff Clinician requesting consultation: STEPHANIE GIRON [[id number]] Comments Clinical Question to be answered: He has PMH of chronic pain. He has had success with previous epidural injections performed in [place]. PMH of chronic pain, back, shoulders, hands, wrists. He is on chronic narcotic regimen as previously prescribed by his PCP in [place], but recently transferred care here as he is living in [place], [place] now for work.. He is also on non-narcotic neuropathic meds but has side effects of sedation, so dosing is limited. He was on disability for a long time, but went back to work in February 2016. He is currently working for [employer] in [place] and had an injury with lumbar fracture. [...] success with this. Please evaluate and treat. MEDICINE PHYSICIAN Reason for Visit * Reason Comments Follow-up f/u inpt [facility] ; Depression, Suicidal ideation, Pain legs feel like on f kirsten burn bilateral Encounter Details Date Type Department Care Team (Late st Contact Info) Description 11/16/2017 11:15 AM TELEMEDICINE PHYSICIAN Office Visit [facility] [address] [place] [address] [address] [place] [phone] [place] [address] [place], [place] [phone] Stephanie Giron PA-C [address] [place], [place] [phone] Social History Tobacco Use Types Packs/Day Years [...] Comments Blood Pressure 110/80 11/16/2017 12:16 PM TELEMEDICINE PHYSICIAN left arm manual, small cuff Pulse 80 11/16/2017 11:08 AM TELEMEDICINE PHYSICIAN Temperature - - Respiratory Rate - - Oxygen Saturation - - Inhaled Oxygen Concentration - - Weight 87.2 kg (192 lb 3.9 oz) 11/16/2017 11:08 AM TELEMEDICINE PHYSICIAN Height - - Body Mass Index 26.81 11/03/2017 10:53 AM TELEMEDICINE PHYSICIAN documented in this encounter Patient Instructions * Discharge Instructions* Stephanie Giron PA-C - 11/16/2017 12:26 PM TELEMEDICINE PHYSICIAN ICD-10-CM ICD-9-CM 1. Moderate episode of recurrent [...] follow up. Follow up in 1 month. MEDICINE PHYSICIAN documented in this encounter Progress Notes * Stephanie Giron PA-C - 11/16/2017 11:15 AM CST Clinic Note Encounter Date: 11/16/2017 Subjective: Chief Complaint: Chief Complaint Patient presents with ??? Follow-up f/u inpt [facility] ; Depression, Suicidal ideation, ??? Pain legs feel like on fire burn bilateral History of Present Illness:Edilberto Hawley is a 62 y.o. Established pt whom I am familiar with, presents to the Department of Family Medicine [facility] for hospital follow up. Pt was admitted to [facility] on 10/25/17 and [...] worker's compensation claim 04/16/2017 Back 05/11/2017 ??? [facility] current use of opiate analgesic 05/11/2017 ??? 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 Since that incident he is having left lumbar radicular symptoms and L3-L4 pattern to the level of the knee. He did have spine CT that showed no acute changes from previous imaging, had MRI in January. He was having symptoms consistent with postconcussion syndrome including aches, dizziness, fatigue,memory problems, concentration problems. He reports he did have a Brain MRI through [facility] in [facility] it was normal. He also complted neuropsych eval which felt he was back to baseline. The psychologist performing his neuropsych evaluation felt he had significant depression. I discussed with patient and he started duloxetine in September, symptoms unchanged at October follow up and dose was increased to 40 mg. The following week, he presented to his work [employer] appt and was sent to the ED [...] success with this in the past and [place]. As he had an MRI in January [...] & LAUENSTEIN RIGHT Stephanie Giron PA-C [facility] Department of Family Medicine [address] [place] [address] [place] [address] MEDICINE PHYSICIAN documented in this encounter Plan of Treatment Scheduled Referrals Name Type Priority Associated Diagnoses Order Schedule OUTPATIENT CONSULT ANESTHESIA - PAIN CLINIC Outpatient Referral Routine Other chronic pain 1 Occurrences starting 11/16/2017 until 05/16/2019 documented as of this encounter Results * HIP AP & LAUENSTEIN RIGHT (11/16/2017 12:46 PM TELEMEDICINE PHYSICIAN) Anatomical Region Laterality Modality lower extremity Computed Radiogr aphy Impressions 11/16/2017 5:02 PM TELEMEDICINE PHYSICIAN Findings / Impression: No acute fracture or dislocation. Joint spaces well-maintained. Unremarkable exam. Narrative 11/16/2017 5:02 PM TELEMEDICINE PHYSICIAN Procedure: HIP AP & LAUENSTEIN RIGHT Clinical [...] Depression Total Score: 12 018 12:31 PM TELEMEDICINE PHYSICIAN PHQ-2 Depression Total Score: 5 11/16/19 18 12:31 PM TELEMEDICINE PHYSICIAN documented as of this encounter Care Teams Neurology Professor Relationship Specialty Start Date End Date Stephanie Giron PA-C [address] [place] [address] PCP - General Physician Leather Production Worker 02/17/17 12/15/22 documented as of this encounter
--- OUTSIDE RECORDS SUMMARY | 2024-11-23 10:36 | XMS_ITS | Encounter Summary ---
Author Organization [facility] Care Address [address] [place] [address] Phone Care Team Providers Care Drag Sawyer Name Role Phone Coco Leos PA-C Primary Care Provider [phone] Reason for Visit * Reason Comments Medication Refill Encounter Details Date Type Department Care Team (Late st Contact Info) Description 10/06/2017 Refill [facility] [address] [place] [phone] Maxine Pope [address] [place], [place] [phone] Social History Tobacco Use Types Packs/Day Years [...] in [facility] folder. Js PATINO SYRUP MAKER * Telephone Encounter - Maxine Pope, [facility] - 10/06/2017 11:13 AM COOK SYRUP MAKER [facility] Pain Medication Refill Service - Pharmacist's Note: [...] There are no unexpected entries on the PHYTOCHEMISTRY PROFESSOR and refill frequency is every 30-31 days. Opioid agreement signed 01/12/17 with Coco Leos PA-C. Urine Drug Screen: 07/09/17 confirmed (+) OC, OM and metabolites, as expected. Respiratory Depression Risk Score >3; anti-depressant and long acting opioid prescribed, emergency visit within last 6 months and history of opioid abuse ER 05/12, [facility] ER 04/16; hx/o METH, MELECIO Morphine equivalent dose is 105 mg/day. nursery nurse is available. Emergency intranasal naloxoneis warranted and on hand at this time. Prescriptions pended for Coco Leos PA-C, last visit: 09/22; return visit: 10/20. Please send orders to [facility] pharmacy for pick-up. Thank you, Cristina George, [facility], BCACP SYRUP MAKER documented in this encounter Plan of Treatment Not on file documented as of this encounter Visit Diagnoses Diagnosis Other chronic pain documented in this encounter Additional Health Concerns Assessment Noted Time PHQ-2 Depression Total Score: 0 08/09/20 17 9:37 AM CDT documented as of this encounter Care Teams Drag Sawyer Relationship Specialty Start Date End Date Coco Leos PA-C [address] [place] [address] PCP - General Physician Banking Specialist 02/17/17 12/15/22 documented as of this encounter
--- OUTSIDE RECORDS SUMMARY | 2024-11-23 10:36 | XMS_ITS | Encounter Summary ---
Author Organization [facility] Care Address [address] [place] [address] Phone Care Team Providers Care Business Development Specialist Name Role Phone Coco Leos PA-C Primary Care Provider [phone] Provider, No-Primary Care Primary Care Provider Unavailable Encounter Details Date Type Department Care Team (Late st Contact Info) Description 10/11/2017 Pharmacy Visit RX [facility] [address] [place] [phone] Social History Tobacco Use Types Packs/Day [...] documented as of this encounter Care Teams Business Development Specialist Relationship Specialty Start Date End Date Coco Leos PA-C [address] [place], [place] [phone] PCP - General Physician Video Game Designer 02/17/17 12/15/22 Provider, No-Primary Care [place] PCP - General 12/16/22 documented as of this encounter
--- OUTSIDE RECORDS SUMMARY | 2024-11-23 10:36 | XMS_ITS | Encounter Summary ---
Author Organization [facility] Care Address [address] [place] [address] Phone Care Team Providers Care Laborer Pipelines Name Role Phone Coco Leos PA-C Primary Care Provider [phone] Reason for Visit * Reason Comments Dizziness Encounter Details Date Type Department Care Team (Late st Contact Info) Description 10/11/2017 [facility] Otolaryngology - Speech and Hearing [address] [place] [phone] Desire Frias, [facility] [address] [place] [address] Social History Tobacco Use Types [...] for his review. Desire Frias M.A. KAYLIE-A Header Set Up Operator II Director, Audiology Clinic T METAL WELDER documented in this encounter Plan of Treatment Not on file documented as of this encounter Visit Diagnoses Not on filedocumented in this encounter Additional Health Concerns Assessment Noted Time PHQ-2 Depression Total Score: 0 08/09/20 17 9:37 AM CDT documented as of this encounter Care Teams Laborer Pipelines Relationship Specialty Start Date End Date Coco Leos PA-C [address] [place] [address] PCP - General Physician Excavating Machine Operator 02/17/17 12/15/22 documented as of this encounter
--- OUTSIDE RECORDS SUMMARY | 2024-11-23 10:36 | XMS_ITS | Encounter Summary ---
Author Organization [facility] Care Address [address] [place] [address] Phone Care Team Providers Care Mining Helper Name Role Phone Coco Leos PA-C Primary Care Provider [phone] Provider, No-Primary Care Primary Care Provider Unavailable Encounter Details Date Type Department Care Team (Late st Contact Info) Description 11/10/2017 Pharmacy Visit RX [facility] [address] [place] [phone] Social History Tobacco Use Types Packs/Day [...] Total Score: 0 10/20/20 17 9:51 AM MACHINE LONG GOODS HELPER documented as of this encounter Care Teams Mining Helper Relationship Specialty Start Date End Date Coco Leos PA-C [address] [place], [place] [phone] PCP - General Physician Compressed Gases Tester 02/17/17 12/15/22 Provider, No-Primary Care [place] PCP - General 12/16/22 documented as of this encounter
--- OUTSIDE RECORDS SUMMARY | 2024-11-23 10:36 | XMS_ITS | Encounter Summary ---
Author Organization [facility] Care Address [address] [place] [address] Phone Care Team Providers Care Barber Shop Manager Name Role Phone Coco Leos PA-C Primary Care Provider [phone] Provider, No-Primary Care Primary Care Provider Unavailable Encounter Details Date Type Department Care Team (Late st Contact Info) Description 10/20/2017 Pharmacy Visit RX [facility] [address] [place] [phone] Social History Tobacco Use Types Packs/Day [...] Total Score: 0 10/20/20 17 9:51 AM CROTCH PIECE BASTER documented as of this encounter Care Teams Barber Shop Manager Relationship Specialty Start Date End Date Coco Leos PA-C [address] [place], [place] [phone] PCP - General Physician Administrative Analyst 02/17/17 12/15/22 Provider, No-Primary Care [place] PCP - General 12/16/22 documented as of this encounter
--- OUTSIDE RECORDS SUMMARY | 2024-11-23 10:36 | XMS_ITS | Encounter Summary ---
Author Organization [facility] Care Address [address] [place] [address] Phone Care Team Providers Care Surface Grinder Name Role Phone Coco Leos PA-C Primary Care Provider [phone] Reason for Visit * Reason Comments Patient Reported Reason For Visit Pt wit h chronic low back pain, had injury in April, now with pain radiating into LLE anterior thigh. CT of spine without changes noted other than stable fracture - no nerve compression. Encounter Details Date Type Department Care Team (Latest Contact Info) Description 10/19/2017 8:10 AM INTELLIGENCE SPECIALIST - 10/19/2017 11:59 PM [facility] Hospital Encounter [facility] - Neurology - Lab [address] [place] [phone] Rickey Boone MD [address] [place], [place] [phone] Gurjit Mccartney [address] [place], [place] [phone] Discharge Disposition: Home or Self Care Social [...] needed. 35.44 g 11 01/12/2017 5:22 PM INTELLIGENCE SPECIALIST 01/12/2017 omeprazole 20 mg enteric coated capsule [...] daily. 30 capsule 11 10/11/2017 12:12 PM INTELLIGENCE SPECIALIST 09/22/2017 7 gabapentin 100 mg capsuleIndicatio ns:neuropathic pain Take 2 capsules (200 mg total) by mouth at bedtime. 60 capsule 11 10/11/2017 12:12 PM INTELLIGENCE SPECIALIST 08/09/2017 7 naloxone 1 mg/mL injection syringe [...] Date: 10/11/17 60 tablet 10/11/2017 12:12 PM INTELLIGENCE SPECIALIST 10/11/2017 7 oxyCODONE-acetam inophen 10-325 mg per tabletIndication s:Other chronic pain Take 1 tablet by mouth every 4 hours as needed for Pain. Earliest Fill Date: 10/11/17 120 tablet 10/11/2017 12:12 PM INTELLIGENCE SPECIALIST 10/11/2017 7 propranolol 80 mg XR capsuleIndicatio ns:Increased frequency of headaches,Post concussive syndrome Take 1 capsule (80 mg total) by mouth daily. 30 capsule 2 10/11/2017 12:12 PM INTELLIGENCE SPECIALIST 08/09/2017 7 documented as of this encounter [...] intake form has been completed and reviewed. LLIGENCE SPECIALIST documented in this encounter Plan of [...] of use: As long as needed Video/Handout: [email or web address] Pain Management - Exercise Pain Management No Coco Leos PA-C Note: Exercise: General Aerobic ?? Duration: 3 to 5 days per week for 20 minutes per day ?? Intensity: Moderate Strengthening: neither Back nor General (for widespread pain) nor Shoulder ?? Intensity: Moderate ?? Duration: 2 to 4 days per week ?? Instructions: See attached documentation for details Video/Handout: [email or web address] documented as of this encounter Procedures Procedure Name Priority Date/Time Associated Diagnosis Comments EMG Routine 10/19/2017 11:20 AM INTELLIGENCE SPECIALIST Nerve pain documented in this encounter Results * EMG (10/19/2017 11:20 AM INTELLIGENCE SPECIALIST) Narrative Stacey Rangel - 10/19/2017 11:20 AM INTELLIGENCE SPECIALIST Stacey Rangel ? 10/19/2017 11:20 AM Reason [...] documented as of this encounter Care Teams Surface Grinder Relationship Specialty Start Date End Date Coco Leos PA-C [address] [place] [address] PCP - General Physician Kicking Machine Operator 02/17/17 12/15/22 documented as of this encounter
--- OUTSIDE RECORDS SUMMARY | 2024-11-23 10:36 | XMS_ITS | Encounter Summary ---
Author Organization [facility] Care Address [address] [place] [address] Phone Care Team Providers Care Brazer Furnace Name Role Phone Coco Leos PA-C Primary Care Provider [phone] Provider, No-Primary Care Primary Care Provider Unavailable Encounter Details Date Type Department Care Team (Late st Contact Info) Description 11/05/2017 Pharmacy Visit RX [facility] [address] [place] [phone] Social History Tobacco Use Types Packs/Day [...] Total Score: 0 10/20/20 17 9:51 AM CAR KNOCKER documented as of this encounter Care Teams Brazer Furnace Relationship Specialty Start Date End Date Coco Leos PA-C [address] [place], [place] [phone] PCP - General Physician Dog Warden 02/17/17 12/15/22 Provider, No-Primary Care [place] PCP - General 12/16/22 documented as of this encounter
--- OUTSIDE RECORDS SUMMARY | 2024-11-23 10:36 | XMS_ITS | Encounter Summary ---
Author Organization [facility] Care Address [address] [place] [address] Phone Care Team Providers Care Return Agent Name Role Phone Coco Leos PA-C Primary Care Provider [phone] Provider, No-Primary Care Primary Care Provider Unavailable Encounter Details Date Type Department Care Team (Late st Contact Info) Description 10/08/[address] [facility] [address] [place] [phone] Social History Tobacco Use Types Packs/Day [...] documented as of this encounter Care Teams Return Agent Relationship Specialty Start Date End Date Coco Leos PA-C [address] [place], [place] [phone] PCP - General Physician Clerk Rating 02/17/17 12/15/22 Provider, No-Primary Care [place] PCP - General 12/16/22 documented as of this encounter
--- OUTSIDE RECORDS SUMMARY | 2024-11-23 10:36 | XMS_ITS | Encounter Summary ---
Author Organization [facility] Care Address [address] [place] [address] Phone Care Team Providers Care Mica Machine Operator Name Role Phone Coco Leos PA-C Primary Care Provider [phone] Reason for Visit * Reason Comments Medication Refill Encounter Details Date Type Department Care Team (Late st Contact Info) Description 11/05/2017 Refill [facility] [address] [place] [phone] Maxine Pope [address] [place], [place] [phone] Social History Tobacco Use Types Packs/Day Years [...] in [facility] pharmacy folder. Js PATINO RAL CLAIMS AGENT * [facility] - [facility] 7:51 AM GENERAL CLAIMS AGENT [facility] Pain Medication Refill Service - [...] There are no unexpected entries on the SUGAR [employer]E PLANTING EQUIPMENT OPERATOR and refill frequency is every 30-33 days. [...] MELECIO) Morphine equivalent dose is 105 mg/day. patient relations manager is available. Emergency intranasal naloxoneis warranted and on hand at this time. Prescriptions pended for Coco Leos PA-C, last visit: 10/20; return visit: 11/16. Please send orders to [facility] pharmacy for pick-up. Thank you, Cristina George, [facility], BCACP RAL CLAIMS AGENT documented in this encounter Plan of Treatment Not on file documented as of this encounter Visit Diagnoses Diagnosis Other chronic pain documented in this encounter Additional Health Concerns Assessment Noted Time PHQ-2 Depression Total Score: 0 10/20/20 17 9:51 AM GENERAL CLAIMS AGENT documented as of this encounter Care Teams Mica Machine Operator Relationship Specialty Start Date End Date Coco Leos PA-C [address] [place] [address] PCP - General Physician Lathe Mechanic 02/17/17 12/15/22 documented as of this encounter
--- OUTSIDE RECORDS SUMMARY | 2024-11-23 10:36 | XMS_ITS | Encounter Summary ---
Author Organization [facility] Care Address [address] [place] [address] Phone Care Team Providers Care Wood Miller Name Role Phone Coco Leos PA-C Primary Care Provider [phone] Reason for Visit * Reason Comments Patient Reported Reason For Visit post-c oncussion * Internal Referral (D. Within 4 weeks) - Closed Specialty Diagnoses / Procedures Referred By Celine almaguer Referred To Contact Otolaryngology Diagnoses Tinnitus of both ears Balance problem Coco Leos PA-C [address] [place] [address] Phone: tel: fax: [facility] Otolaryngology - General/Rhinology [address] [place] [address] Phone: tel: fax: Referral ID Status Reason Start Date Expiration Date Visits Re quested Visits Authorized [id number] Closed 09/22/2017 1 1 Encounter Details Date Type Department Care Team (Late st Contact Info) Description 11/03/2017 9:00 AM CHANGE MANAGEMENT SPECIALIST Office Visit [facility] Otolaryngology - General/Rhinology [address] [place] [phone] Froylan Alexis [address] [place], [place] [phone] Social History Tobacco Use Types Packs/Day Years [...] Comments Blood Pressure 129/73 11/03/2017 7:46 AM CHANGE MANAGEMENT SPECIALIST Pulse 86 11/03/2017 7:46 AM CHANGE MANAGEMENT SPECIALIST Temperature 36 ??C (96.8 ??F) 11/03/2017 7:46 AM CHANGE MANAGEMENT SPECIALIST Respiratory Rate - - Oxygen Saturation - - Inhaled Oxygen Concentration - - Weight 90.1 kg (198 lb 10.2 oz) 11/03/2017 7:46 AM CHANGE MANAGEMENT SPECIALIST Height 180.3 cm (5' 11 ) 11/03/2017 7:46 AM CHANGE MANAGEMENT SPECIALIST Body Mass Index 27.7 11/03/2017 7:46 AM CHANGE MANAGEMENT SPECIALIST documented in this encounter Progress Notes [...] wear ear protection. 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 No history of firearm [...] late hearing loss SH: worked for [employer], currently working at [employer] Active Problem List Diagnosis Code ??? Health care maintenance Z00.00 ??? Chronic pain G89.29 ??? History of left hip replacement Z96.642 ??? History of repair of left rotator cuff Z98.890 ??? Encounter related to worker's compensation claim 04/16/2017 Back Z02.6 ??? equipment operator intermodal yard current use of opiate analgesic Z79.891 ??? [...] History Narrative Mr. 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 No nystagmus. Turner-Hallpike negative Ears auricle (AD) - normal EAC [...] motor abnormalities. CN 2-12 intact bilaterally Procedures: Turner Hallpike Maneuver negative for nystagmus when testing [...] and agree, except as noted by me. GE MANAGEMENT SPECIALIST GE MANAGEMENT SPECIALIST documented in this encounter Plan of Treatment Not on file documented as of this encounter Visit Diagnoses Diagnosis Tinnitus of both ears Unspecified tinnitus Balance problem Other symptoms involving nervous and musculoskeletal systems documented in this encounter Additional Health Concerns Assessment Noted Time PHQ-2 Depression Total Score: 0 10/20/20 17 9:51 AM CHANGE MANAGEMENT SPECIALIST documented as of this encounter Care Teams Wood Miller Relationship Specialty Start Date End Date Coco Leos PA-C [address] [place] [address] PCP - General Physician Hand Potter 02/17/17 12/15/22 documented as of this encounter
--- OUTSIDE RECORDS SUMMARY | 2024-11-23 10:36 | XMS_ITS | Encounter Summary ---
Author Organization [facility] Care Address [address] [place] [address] Phone Care Team Providers Care Returns Processor Name Role Phone Coco Leos PA-C Primary Care Provider [phone] Provider, No-Primary Care Primary Care Provider Unavailable Encounter Details Date Type Department Care Team (Late st Contact Info) Description 10/06/2017 Pharmacy Visit RX [facility] [address] [place] [phone] Social History Tobacco Use Types Packs/Day [...] documented as of this encounter Care Teams Returns Processor Relationship Specialty Start Date End Date Coco Leos PA-C [address] [place], [place] [phone] PCP - General Physician Dish Washer 02/17/17 12/15/22 Provider, No-Primary Care [place] PCP - General 12/16/22 documented as of this encounter
--- OUTSIDE RECORDS SUMMARY | 2024-11-23 10:36 | XMS_ITS | Encounter Summary ---
Author Organization [facility] Care Address [address] [place] [address] Phone Care Team Providers Care Motor Generator Set Operator Name Role Phone Coco Leos PA-C Primary Care Provider [phone] Provider, No-Primary Care Primary Care Provider Unavailable Encounter Details Date Type Department Care Team (Late st Contact Info) Description 11/11/2017 Pharmacy Visit RX [facility] [address] [place] [phone] Social History Tobacco Use Types Packs/Day [...] Total Score: 0 10/20/20 17 9:51 AM FINE SANDER documented as of this encounter Care Teams Motor Generator Set Operator Relationship Specialty Start Date End Date Coco Leos PA-C [address] [place], [place] [phone] PCP - General Physician Supervisor Safety Deposit 02/17/17 12/15/22 Provider, No-Primary Care [place] PCP - General 12/16/22 documented as of this encounter
--- OUTSIDE RECORDS SUMMARY | 2024-11-23 10:36 | XMS_ITS | Encounter Summary ---
Author Organization [facility] Care Address [address] [place] [address] Phone Care Team Providers Care Security Risk Analyst Name Role Phone Coco Leos PA-C Primary Care Provider [phone] Provider, No-Primary Care Primary Care Provider Unavailable Encounter Details Date Type Department Care Team (Late st Contact Info) Description 11/04/2017 Pharmacy Visit RX [facility] [address] [place] [phone] Social History Tobacco Use Types Packs/Day [...] Total Score: 0 10/20/20 17 9:51 AM ELECTROLYSIS OPERATOR documented as of this encounter Care Teams Security Risk Analyst Relationship Specialty Start Date End Date Coco Leos PA-C [address] [place], [place] [phone] PCP - General Physician Construction Equipment Mechanic Helper 02/17/17 12/15/22 Provider, No-Primary Care [place] PCP - General 12/16/22 documented as of this encounter
--- OUTSIDE RECORDS SUMMARY | 2024-11-23 10:37 | XMS_ITS | Encounter Summary ---
Author Organization [facility] Care Address [address] [place] [address] Phone Care Team Providers Care Alcoholism Worker Name Role Phone Coco Leos PA-C Primary Care Provider [phone] Reason for Visit * Reason Comments Follow-up f/u in 2 weeks for c oncussion, urinary issues Encounter Details Date Type Department Care Team (Late st Contact Info) Description 08/09/2017 10:15 AM CDT Office Visit [facility] [address] [place] [phone] [place] [address] [place], [place] [phone] Coco Leos PA-C [address] [place], [place] [phone] Social History Tobacco Use Types Packs/Day Years [...] 4 hours. Continue to follow up with [facility]. You can try Claritin (generic is loratadine) [...] and shoulder injury. Still being followed by [facility] in [place]. Since that incident he is now having left lumbar radicular symptoms and L3-L4 pattern to the level of the knee. He also is having symptoms consistent with postconcussion syndrome including aches, dizziness, fatigue, memory problems, concentration problems. He did havea Brain MRI through [facility] in and it was normal. I Reviewed [...] has been followed by [facility] in [place] and ortho spine at [facility]. The [facility] would like an [...] receiving medications through us and utilizing the [facility]. He reports that he is [...] worker's compensation claim 04/16/2017 Back 05/11/2017 ??? long-term current use of opiate analgesic 05/11/2017 ??? 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 Since that incident he is now having [...] recommended. NO SCREEN time. Coco Leos PA-C [facility] Department of Family Medicine [address] [place] [address] documented in this encounter Plan of Treatment [...] documented as of this encounter Care Teams Alcoholism Worker Relationship Specialty Start Date End Date Coco Leos PA-C [address] [place] [address] PCP - General Physician Instructional Manager 02/17/17 12/15/22 documented as of this encounter
--- OUTSIDE RECORDS SUMMARY | 2024-11-23 10:37 | XMS_ITS | Encounter Summary ---
Author Organization [facility] Care Address [address] [place] [address] Phone Care Team Providers Care Comb Winder Name Role Phone Coco Leos PA-C Primary Care Provider [phone] Reason for Referral * Internal Referral (Routine) - Closed Specialty Diagnoses / Procedures Referred By Contac t Referred To Contact Orthopaedic Diagnoses History of concussion Low back pain, unspecified back pain laterality, unspecified chronicity, with sciatica presence unspecified Marylou Doan MD [address] [place] [address] Phone: tel: fax: [facility] - Orthopedics - Spine [address] [place] [address] Phone: tel: fax: Referral ID Status Reason Start Date Expiration Date Visits Re quested Visits Authorized [id number] Closed 09/24/2017 1 1 Question Answer Does patient need screening for psychological comorbidities or barriers to pain management? Yes Can patient benefit from improved sleep hygiene? Yes Can patient benefit from stabilization of anxiety, mood, & psychosocial stressors? Yes Faculty Physician/Staff Clinician requesting consultation: MARYLOU DOAN [[id number]] Comments Reason for consultation: headaches and related symptoms in addition to back pain. Has chronic pain but acute different pain after a fall while at work which led to some lumbar spine transverse process fractures. Has seen Dr. Robles who also felt may be of benefit. COUNSEL Reason for Visit * Reason Comments Patient Reported Reason For Visit WC HEA D INJURY, HEADACHES/DIZZINESS/TINNITUS, EVAL & TREAT, DOI 04/16/2017 * Incoming Manual Referral (E. Within 3 months) - Closed Specialty Diagnoses / Procedures Referred By Contjessica t Referred To Contact Orthopaedic Diagnoses WC HEAD INJURY, HEADACHES/DIZZINESS/TINNIT US, EVAL & TREAT, DOI 04/16/2017 [address] [place] [address] Phone: tel: fax: Marylou Doan MD [address] [place] [address] Phone: tel: fax: Referral ID Status Reason Start Date Expiration Date Visits Re quested Visits Authorized [id number] Closed 04/16/2017 10/08/2018 1 1 Encounter Details Date Type Department Care Team (Late st Contact Info) Description 09/22/2017 8:30 AM IP COUNSEL Office Visit [facility] Orthopedics - Work Injury Recovery [address] [place] [address] Marylou Dona MD [address] [place] [address] Social History Tobacco Use Types Packs/Day Years [...] Comments Blood Pressure 143/86 09/22/2017 8:26 AM IP COUNSEL Pulse 83 09/22/2017 8:26 AM IP COUNSEL Temperature 35.6 ??C (96.1 ??F) 09/22/2017 8:26 AM CS T Respiratory Rate - - Oxygen Saturation - - Inhaled Oxygen Concentration - - Weight 87.4 kg (192 lb 10.9 oz) 09/22/2017 8:26 AM IP COUNSEL Height 179 cm (5' 10.47 ) 09/22/2017 8:26 AM IP COUNSEL Body Mass Index 27.28 09/22/2017 8:26 AM IP COUNSEL documented in this encounter Patient Instructions * Discharge Instructions* Marylou Doan MD - 09/22/2017 9:45 AM IP COUNSEL Decrease/discontinue Gabapentin as that likely is not helping at the current dose and higher dose had not been tolerated in the past. For balance issues and ringing in ears, consider ENT (ear, nose, throat) doc evaluation. Your other doctors could consider x-ray left hip for ongoing pain, Lyrica (medication instead of gabapentin), possible nerve test EMG. COUNSEL documented in this encounter Progress Notes * [...] lose hisbalance and tried to get the junior assistant manager to stop but was unable and fell [...] Goodman from Orthopedics locally and provided a [place]house brace. Current symptoms: Mr. Hawley indicates that [...] eventually was referred to Dr. Fowler at [facility] for his spine issues. He also has shoulder pain and apparently is awaiting separate Orthopedic consultation for that. Meanwhile, given ongoing headaches, dizziness, and tinnitus he was referred to Neuropsychology, Neurology, and balance therapy. He only had a couple of sessions that he reports of balance therapy. His neurology appointment is apparently at [place] [address]. Medications have included Amitriptyline for the headache [...] compensation claim 04/16/2017 Back 05/11/2017 ??? 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 - Marital status: [...] if appropriate. 4. I'll check with the [facility] team to determine if he is supposed [...] Rehabilitation Service Department of Orthopaedics & Rehabilitation [phone] COUNSEL documented in this encounter Miscellaneous Notes * Communication Body - Gisel Dillard - 09/22/2017 8:30 AM CST We saw Edilberto Hawley in Orthopaedics at the [facility] on 09/22/17. Enclosed is a copy of our notes. If you have any questions, please call my office. Sincerely, Marylou Doan MD Clinical Sql Consultant Physical Medicine & Rehabilitation Service [facility] Department of Orthopedics & Rehabilitation [phone] COUNSEL documented in this encounter Plan of Treatment [...] documented as of this encounter Care Teams Comb Winder Relationship Specialty Start Date End Date Coco Leos PA-C [address] [place], [place] [phone] PCP - General Physician Glass Sander Belt 02/17/17 12/15/22 documented as of this encounter
--- OUTSIDE RECORDS SUMMARY | 2024-11-23 10:37 | XMS_ITS | Encounter Summary ---
Author Organization [facility] Care Address [address] [place] [address] Phone Care Team Providers Care Plastics Process Hand Name Role Phone Coco Leos PA-C Primary Care Provider [phone] Provider, No-Primary Care Primary Care Provider Unavailable Encounter Details Date Type Department Care Team (Late st Contact Info) Description 09/03/2017 Pharmacy Visit RX [facility] [address] [place] [phone] Social History Tobacco Use Types Packs/Day [...] documented as of this encounter Care Teams Plastics Process Hand Relationship Specialty Start Date End Date Coco Leos PA-C [address] [place], [place] [phone] PCP - General Physician Spray Dyer 02/17/17 12/15/22 Provider, No-Primary Care [place] PCP - General 12/16/22 documented as of this encounter
--- OUTSIDE RECORDS SUMMARY | 2024-11-23 10:37 | XMS_ITS | Encounter Summary ---
Author Organization [facility] Care Address [address] [place] [address] Phone Care Team Providers Care Cafe Server Name Role Phone Coco Leos PA-C Primary Care Provider [phone] Reason for Visit * Reason Comments Patient Reported Reason For Visit Encounter Details Date Type Department Care Team (Late st Contact Info) Description 09/08/2017 8:54 AM CDT - 09/08/2017 11:59 PM CDT [facility] - Radiology - External [address] [place] [phone] Venancio Soto [address] [place] [address] Social History Tobacco Use Types Packs/Day Years [...] needed. 35.44 g 11 01/12/2017 5:22 PM TELEVISION ACTOR 01/12/2017 omeprazole 20 mg enteric coated capsule [...] bedtime. 60 capsule 11 10/11/2017 12:12 PM TELEVISION ACTOR 08/09/2017 7 naloxone 1 mg/mL injection syringe [...] daily. 30 capsule 2 10/11/2017 12:12 PM TELEVISION ACTOR 08/09/2017 7 documented as of this encounter [...] use: As long as needed Video/Handout: [email or web address] systemTaifatech/Auramist/[email or web address]-xfcg-dmunijcfpl-tens Pain Management - Exercise Pain Management No Coco Leos PA-C Note: Exercise: General Aerobic ?? Duration: 3 to 5 days per week for 20 minutes per day ?? Intensity: Moderate Strengthening: neither Back nor General (for widespread pain) nor Shoulder ?? Intensity: Moderate ?? Duration: 2 to 4 days per week ?? Instructions: See attached documentation for details Video/Handout: [email or web address]://[facility] systemTaifatech/Auramist/hrsrgcd-uytc-wrkaprlgka-exercise documented as of this encounter Procedures Procedure [...] documented as of this encounter Care Teams Cafe Server Relationship Specialty Start Date End Date Coco Leos PA-C [address] [place] [address] PCP - General Physician Keg Washer 02/17/17 12/15/22 documented as of this encounter
--- OUTSIDE RECORDS SUMMARY | 2024-11-23 10:37 | XMS_ITS | Encounter Summary ---
Author Organization [facility] Care Address [address] [place] [address] Phone Care Team Providers Care Tariff Expert Name Role Phone Coco Leos PA-C Primary Care Provider [phone] Provider, No-Primary Care Primary Care Provider Unavailable Encounter Details Date Type Department Care Team (Late st Contact Info) Description 08/30/2017 Pharmacy Visit RX [facility] [address] [place] [phone] Social History Tobacco Use Types Packs/Day [...] documented as of this encounter Care Teams Tariff Expert Relationship Specialty Start Date End Date Coco Leos PA-C [address] [place], [place] [phone] PCP - General Physician Manager Community Outreach 02/17/17 12/15/22 Provider, No-Primary Care [place] PCP - General 12/16/22 documented as of this encounter
--- OUTSIDE RECORDS SUMMARY | 2024-11-23 10:37 | XMS_ITS | Encounter Summary ---
Author Organization [facility] Care Address [address] [place] [address] Phone Care Team Providers Care Departmental Buyer Name Role Phone Coco Leos PA-C Primary Care Provider [phone] Encounter Details Date Type Department Care Team (Late st Contact Info) Description 09/08/2017 Orders/Notes [facility] Orthopedics - Work Injury Recovery [address] [place] [address] Estevan Johnson MD [address] [place], [place] [phone] Social History Tobacco Use Types Packs/Day Years [...] Placed order to save external images to [facility]. documented in this encounter Plan of Treatment [...] As long as needed Video/Handout: https://[facility] hospitalAnipipo/Greenhouse Appslibrary/kzuqdyi-bzeb-jsatzgeyji-tens Pain Management - Exercise Pain Management No Coco Leos PA-C Note: Exercise: General Aerobic ?? Duration: 3 to 5 days per week for 20 minutes per day ?? Intensity: Moderate Strengthening: neither Back nor General (for widespread pain) nor Shoulder ?? Intensity: Moderate ?? Duration: 2 to 4 days per week ?? Instructions: See attached documentation for details Video/Handout: [email or web address]://[facility] hospitalAnipipo/Cedar Books/wyfopjf-ueao-cmfctlcazz-exercise documented as of this encounter Results * [...] documented as of this encounter Care Teams Departmental Buyer Relationship Specialty Start Date End Date Coco Leos PA-C [address] [place] [address] PCP - General Physician Entry Level 02/17/17 12/15/22 documented as of this encounter
--- OUTSIDE RECORDS SUMMARY | 2024-11-23 10:37 | XMS_ITS | Encounter Summary ---
Author Organization [facility] Care Address [address] [place] [address] Phone Care Team Providers Care Science Teacher Name Role Phone Coco Leos PA-C Primary Care Provider [phone] Reason for Visit * Reason Comments Patient Reported Reason For Visit Encounter Details Date Type Department Care Team (Late st Contact Info) Description 09/22/2017 12:00 PM LADIES UNDERWEAR OPERATOR Lab Only [place] - [facility] - Draw Station [address] [place] [phone] Coco Leos PA-C [address] [place], [place] [phone] Lab Services, Ir[facility] Social History Tobacco Use [...] documented as of this encounter Care Teams Science Teacher Relationship Specialty Start Date End Date Coco Leos PA-C [address] [place], [place] [phone] PCP - General Physician Garment Mender 02/17/17 12/15/22 documented as of this encounter
--- OUTSIDE RECORDS SUMMARY | 2024-11-23 10:37 | XMS_ITS | Encounter Summary ---
Author Organization [facility] Care Address [address] [place] [address] Phone Care Team Providers Care Coater Operator Insulation Board Name Role Phone Coco Leos PA-C Primary Care Provider [phone] Provider, No-Primary Care Primary Care Provider Unavailable Encounter Details Date Type Department Care Team (Late st Contact Info) Description 09/08/2017 Pharmacy Visit RX [facility] [address] [place] [phone] Social History Tobacco Use Types Packs/Day [...] documented as of this encounter Care Teams Coater Operator Insulation Board Relationship Specialty Start Date End Date Coco Leos PA-C [address] [place], [place] [phone] PCP - General Physician Client Strategist 02/17/17 12/15/22 Provider, No-Primary Care [place] PCP - General 12/16/22 documented as of this encounter
--- OUTSIDE RECORDS SUMMARY | 2024-11-23 10:37 | XMS_ITS | Encounter Summary ---
Author Organization [facility] Care Address [address] [place] [address] Phone Care Team Providers Care Plug Shaper Hand Name Role Phone Coco Leos PA-C Primary Care Provider [phone] Provider, No-Primary Care Primary Care Provider Unavailable Encounter Details Date Type Department Care Team (Late st Contact Info) Description 10/04/2017 Pharmacy Visit RX [facility] [address] [place] [phone] Social History Tobacco Use Types Packs/Day [...] documented as of this encounter Care Teams Plug Shaper Hand Relationship Specialty Start Date End Date Coco Leos PA-C [address] [place], [place] [phone] PCP - General Physician Sustainability Officer 02/17/17 12/15/22 Provider, No-Primary Care [place] PCP - General 12/16/22 documented as of this encounter
--- OUTSIDE RECORDS SUMMARY | 2024-11-23 10:37 | XMS_ITS | Encounter Summary ---
Author Organization [facility] Care Address [address] [place] [address] Phone Care Team Providers Care Cashier Wrapper Name Role Phone Coco Leos PA-C Primary Care Provider [phone] Reason for Visit * Reason Comments Patient Reported Reason For Visit Encounter Details Date Type Department Care Team ([facility] st Contact Info) Description 09/08/2017 8:53 AM CDT [facility] - [facility] [address] [place] [phone] Aranza Bradley MD [address] [place], [place] [phone] Social History Tobacco Use Types Packs/Day Years [...] needed. 35.44 g 11 01/12/2017 5:22 PM RESEARCH MANAGEMENT ASSOCIATE 01/12/2017 omeprazole 20 mg enteric coated [...] bedtime. 60 capsule 11 10/11/2017 12:12 PM RESEARCH MANAGEMENT ASSOCIATE 08/09/2017 7 naloxone 1 mg/mL injection [...] daily. 30 capsule 2 10/11/2017 12:12 PM RESEARCH MANAGEMENT ASSOCIATE 08/09/2017 7 documented as of this [...] As long as needed Video/Handout: https://[facility] centerwhoplusyounorthside hospital forsyth/[place] Distillerslibrary/caswfdg-fnwh-hqobckyffk-tens Pain Management - Exercise Pain Management No Coco Leos PA-C Note: Exercise: General Aerobic ?? Duration: 3 to 5 days per week for 20 minutes per day ?? Intensity: Moderate Strengthening: neither Back nor General (for widespread pain) nor Shoulder ?? Intensity: Moderate ?? Duration: 2 to 4 days per week ?? Instructions: See attached documentation for details Video/Handout: https://[facility] medical centerwhoplusyounorthside hospital forsyth/NetPlenish/dvlxmnk-jxtv-hqdsdsecgt-exercise documented as of this encounter Procedures Procedure [...] documented as of this encounter Care Teams Cashier Wrapper Relationship Specialty Start Date End Date Coco Leos PA-C [address] [place], [place] [phone] PCP - General Physician Garment Turner 02/17/17 12/15/22 documented as of this encounter
--- OUTSIDE RECORDS SUMMARY | 2024-11-23 10:37 | XMS_ITS | Encounter Summary ---
Author Organization [facility] Care Address [address] [place] [address] Phone Care Team Providers Care Technical Education Teacher Name Role Phone Coco Leos PA-C Primary Care Provider [phone] Provider, No-Primary Care Primary Care Provider Unavailable Encounter Details Date Type Department Care Team (Late st Contact Info) Description 09/01/2017 Pharmacy Visit RX [facility] [address] [place] [phone] Social History Tobacco Use Types Packs/Day [...] documented as of this encounter Care Teams Technical Education Teacher Relationship Specialty Start Date End Date Coco Leos PA-C [address] [place], [place] [phone] PCP - General Physician After School Counselor 02/17/17 12/15/22 Provider, No-Primary Care [place] PCP - General 12/16/22 documented as of this encounter
--- OUTSIDE RECORDS SUMMARY | 2024-11-23 10:37 | XMS_ITS | Encounter Summary ---
Author Organization [facility] Care Address [address] [place] [address] Phone Care Team Providers Care Superintendent Of Generation Name Role Phone Coco Leos PA-C Primary Care Provider [phone] Reason for Visit * Reason Comments Patient Reported Reason For Visit Patient Reported Reason For Visit Encounter Details Date Type Department Care Team (Latest Contact Info) Description 09/22/2017 12:17 PM GLASS LOADING EQUIPMENT TENDER - 09/22/2017 11:59 PM [facility] Hospital Encounter [place] - [facility] - Radiology [address] [phone] Karen Cruz MD [address] [place] [address] Discharge Disposition: Home or Self [...] needed. 35.44 g 11 01/12/2017 5:22 PM GLASS LOADING EQUIPMENT TENDER 01/12/2017 omeprazole 20 mg enteric coated capsule [...] daily. 30 capsule 11 10/11/2017 12:12 PM GLASS LOADING EQUIPMENT TENDER 09/22/2017 7 gabapentin 100 mg capsuleIndicatio ns:neuropathic pain Take 2 capsules (200 mg total) by mouth at bedtime. 60 capsule 11 10/11/2017 12:12 PM GLASS LOADING EQUIPMENT TENDER 08/09/2017 7 naloxone 1 mg/mL injection syringe [...] daily. 30 capsule 2 10/11/2017 12:12 PM GLASS LOADING EQUIPMENT TENDER 08/09/2017 7 documented as of this encounter Plan of Treatment Not on file documented as of this encounter Procedures Procedure Name Priority Date/Time Associated Diagnosis Comments HIP AP & LAUENSTEIN LEFT Routine 09/22/2017 12:34 PM GLASS LOADING EQUIPMENT TENDER Left hip pain documented in this encounter Results * HIP AP & LAUENSTEIN LEFT (09/22/2017 12:34 PM GLASS LOADING EQUIPMENT TENDER) Anatomical Region Laterality Modality lower extremity Computed Radiogr aphy Impressions 09/22/2017 3:21 PM GLASS LOADING EQUIPMENT TENDER Findings / Impression: No acute fracture or dislocation. Stable left total hip arthroplasty without radiographic evidence of complication. Narrative 09/22/2017 3:21 PM GLASS LOADING EQUIPMENT TENDER Procedure: HIP AP & LAUENSTEIN LEFT Clinical [...] documented as of this encounter Care Teams Superintendent Of Generation Relationship Specialty Start Date End Date Coco Leos PA-C [address] [place] [address] PCP - General Physician License Registration Examiner 02/17/17 12/15/22 documented as of this encounter
--- OUTSIDE RECORDS SUMMARY | 2024-11-23 10:37 | XMS_ITS | Encounter Summary ---
Author Organization [facility] Care Address [address] [place] [address] Phone Care Team Providers Care Peoplesoft Hcm Consultant Name Role Phone Coco Leos PA-C Primary Care Provider [phone] Reason for Visit * Reason Comments Patient Reported Reason For Visit WC RTN BACK, L2, L3, L4 TRANSVERSE PROCESS FRACTURES, PRIOR L5 - S1 FORAMINAL NARROWING, DOI 04/16/2017 Encounter Details Date Type Department Care Team (Late st Contact Info) Description 09/29/2017 1:30 PM KILN WORKER Office Visit [facility] Orthopedics - Work Injury Recovery [address] [place] [address] Flyod Fowler MD [address] [place], [place] [phone] Social History Tobacco Use Types Packs/Day Years [...] Comments Blood Pressure 122/78 09/29/2017 2:08 PM KILN WORKER Pulse 62 09/29/2017 2:08 PM KILN WORKER Temperature 35.7 ??C (96.3 ??F) 09/29/2017 2:08 PM CS T Respiratory Rate - - Oxygen Saturation - - Inhaled Oxygen Concentration - - Weight 88.5 kg (195 lb 1.7 oz) 09/29/2017 2:08 P M KILN WORKER Height 179 cm (5' 10.47 ) 09/29/2017 2:08 PM KILN WORKER Body Mass Index 27.62 09/29/2017 2:08 PM KILN WORKER documented in this encounter Progress Notes [...] 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 Per patient, [employer] is paying patient to work at [employer]. Patient also has a history of back pain including right lower extremity radicular pain. Patient hashad previous epidural steroid injections for this that were helpful. Patient is also being seen forsyncopal events by other providers including [facility] in , Family Medicine at [facility], and has had n europsychological assessment. Comprehensive [...] to worker's compensation claim 04/16/2017 Back ??? halfway current use of opiate analgesic ??? Closed [...] after he fell onto his back at [employer]. Patient was found to have an L3 [...] In fact he has not been back [facility] for over 4 months. At [...] Fowler MD Department of Orthopedics & Rehabilitation [phone] Procedure Note None Luis Sauceda MD WORKER WORKER documented in this encounter Plan of Treatment Not on file documented as of this encounter Procedures Procedure Name Priority Date/Time Associated Diagnosis Comments L SPINE AP & LATERAL STANDING Routine 09/29/2017 1:54 PM KILN WORKER Low back pain documented in this encounter Results * L SPINE AP & LATERAL STANDING (09/29/2017 1:54 PM KILN WORKER) Anatomical Region Laterality Modality Spine RAD MSK modality Impressions 09/29/2017 2:45 PM KILN WORKER Findings / Impression: There are 5 lumbar type vertebrae. L1-L3 right transverse process fractures reported on prior CT not clearly visualized. L3 compression deformity appear grossly stable since the prior. Multilevel facet hypertrophy, moderate to severe at L3-L4, L4/L5, and L5-S1, grossly stable. Narrative 09/29/2017 2:45 PM KILN WORKER Procedure: L SPINE AP & LATERAL STANDING [...] documented as of this encounter Care Teams Peoplesoft Hcm Consultant Relationship Specialty Start Date End Date Coco Leos PA-C [address] [place], [place] [phone] PCP - General Physician Senior Care Manager 02/17/17 12/15/22 documented as of this encounter
--- OUTSIDE RECORDS SUMMARY | 2024-11-23 10:37 | XMS_ITS | Encounter Summary ---
Author Organization [facility] Care Address [address] [place] [address] Phone Care Team Providers Care Mine Captain Name Role Phone Coco Leos PA-C Primary Care Provider [phone] Provider, No-Primary Care Primary Care Provider Unavailable Encounter Details Date Type Department Care Team (Late st Contact Info) Description 08/27/2017 Pharmacy Visit [facility] [address] [place] [phone] Social History Tobacco Use Types Packs/Day [...] as of this encounter Care Teams Mine Captain Relationship Specialty Start Date End Date Coco Leos PA-C [address] [place], [place] [phone] PCP - General Physician Metal Furniture Glazier 02/17/17 12/15/22 Provider, No-Primary Care [place] PCP - General 12/16/22 documented as of this encounter
--- OUTSIDE RECORDS SUMMARY | 2024-11-23 10:37 | XMS_ITS | Encounter Summary ---
Author Organization [facility] Care Address [address] [place] [address] Phone Care Team Providers Care Campus Recruiting Coordinator Name Role Phone Coco Leos PA-C Primary Care Provider [phone] Reason for Visit * Reason Comments Patient Reported Reason For Visit Patient Reported Reason For Visit Encounter Details Date Type Department Care Team (Latest Contact Info) Description 07/21/2017 2:08 PM CDT - 07/21/2017 11:59 PM CDT Hospital Encounter [facility] - Radiology - Musculoskeletal [address] [place] [phone] Aranza Bradley MD [address] [place], [place] [phone] Discharge Disposition: Home or Self Care Social [...] needed. 35.44 g 11 01/12/2017 5:22 PM PARAFFIN MACHINE OPERATOR 01/12/2017 omeprazole 20 mg enteric coated [...] bedtime. 30 capsule 11 01/12/2017 5:22 PM PARAFFIN MACHINE OPERATOR 01/12/2017 7 naloxone 1 mg/mL injection syringe [...] documented as of this encounter Care Teams Campus Recruiting Coordinator Relationship Specialty Start Date End Date Coco Leos PA-C [address] [place] [address] PCP - General Physician Broacher 02/17/17 12/15/22 documented as of this encounter
--- OUTSIDE RECORDS SUMMARY | 2024-11-23 10:37 | XMS_ITS | Encounter Summary ---
Author Organization [facility] Care Address [address] [place] [address] Phone Care Team Providers Care Automobile Washer Steam Name Role Phone Coco Leos PA-C Primary Care Provider [phone] Provider, No-Primary Care Primary Care Provider Unavailable Encounter Details Date Type Department Care Team (Late st Contact Info) Description 08/16/2017 [facility] - Orthopedics - Work Injury Recovery [address] [place] [address] Floyd Fowler MD [address] [place], [place] [phone] Social History Tobacco Use Types Packs/Day Years [...] addressed to ATTN: Medical Records at the [facility] address and it was delivered to Dr. Fowler. This [employer] is requestinga copy of all records, and in their notes they are asking for anything from '1953' to present, which I believe is an error as that is the patient's . This information was faxed to [facility] [employer] today @ [phone]. documented in this encounter Plan of Treatment Not on file documented as of this encounter Visit Diagnoses Not on filedocumented in this encounter Additional Health Concerns Assessment Noted Time PHQ-2 Depression Total Score: 0 08/09/20 17 9:37 AM CDT documented as of this encounter Care Teams Automobile Washer Steam Relationship Specialty Start Date End Date Coco Leos PA-C [address] [place] [address] PCP - General Physician Theatrical Scenic Designer 02/17/17 12/15/22 Provider, No-Primary Care [place] PCP - General 12/16/22 documented as of this encounter
--- OUTSIDE RECORDS SUMMARY | 2024-11-23 10:37 | XMS_ITS | Encounter Summary ---
Author Organization [facility] Care Address [address] [place] [address] Phone Care Team Providers Care Plant Production Worker Name Role Phone Coco Leos PA-C Primary Care Provider [phone] Provider, No-Primary Care Primary Care Provider Unavailable Encounter Details Date Type Department Care Team (Late st Contact Info) Description 08/09/2017 Pharmacy Visit RX [facility] [address] [place] [phone] Social History Tobacco Use Types Packs/Day [...] documented as of this encounter Care Teams Plant Production Worker Relationship Specialty Start Date End Date Coco Leos PA-C [address] [place], [place] [phone] PCP - General Physician Tugboat Mate 02/17/17 12/15/22 Provider, No-Primary Care [place] PCP - General 12/16/22 documented as of this encounter
--- OUTSIDE RECORDS SUMMARY | 2024-11-23 10:37 | XMS_ITS | Encounter Summary ---
Author Organization [facility] Care Address [address] [place] [address] Phone Care Team Providers Care Industrial Engineering Manager Name Role Phone Coco Leos PA-C Primary Care Provider [phone] Provider, No-Primary Care Primary Care Provider Unavailable Encounter Details Date Type Department Care Team (Late st Contact Info) Description 08/25/2017 Pharmacy Visit RX [facility] [address] [place] [phone] Social History Tobacco Use Types Packs/Day [...] documented as of this encounter Care Teams Industrial Engineering Manager Relationship Specialty Start Date End Date Coco Leos PA-C [address] [place], [place] [phone] PCP - General Physician Supervisory Geographer 02/17/17 12/15/22 Provider, No-Primary Care [place] PCP - General 12/16/22 documented as of this encounter
--- OUTSIDE RECORDS SUMMARY | 2024-11-23 10:37 | XMS_ITS | Encounter Summary ---
Author Organization [facility] Care Address [address] [place] [address] Phone Care Team Providers Care Internal Sales Engineer Name Role Phone Coco Leos PA-C Primary Care Provider [phone] Reason for Visit * Reason Comments Dizziness Encounter Details Date Type Department Care Team (Late st Contact Info) Description 10/04/2017 [facility] Otolaryngology - Speech and Hearing [address] [place] [phone] Desire Frias, [facility] [address] [place] [address] Social History Tobacco Use Types [...] to call me back. Desire Frias M.A. [facility] Wholesale And Retail Merchant II Director, Audiology Clinic N RESOURCES BENEFITS ADMINISTRATOR documented in this encounter Plan of Treatment Not on file documented as of this encounter Visit Diagnoses Not on filedocumented in this encounter Additional Health Concerns Assessment Noted Time PHQ-2 Depression Total Score: 0 08/09/20 17 9:37 AM CDT documented as of this encounter Care Teams Internal Sales Engineer Relationship Specialty Start Date End Date Coco Leos PA-C [address] [place] [address] PCP - General Physician Potato Chip Sorter 02/17/17 12/15/22 documented as of this encounter
--- OUTSIDE RECORDS SUMMARY | 2024-11-23 10:37 | XMS_ITS | Encounter Summary ---
Author Organization [facility] Care Address [address] [place] [address] Phone Care Team Providers Care Issuer Name Role Phone Coco Leos PA-C Primary Care Provider [phone] Reason for Visit * Reason Comments Medication Refill Encounter Details Date Type Department Care Team (Late st Contact Info) Description 08/30/2017 Refill [facility] [address] [facility] [address] [place] [phone] Maxine Pope [address] [place] [address] Social History Tobacco Use Types [...] visit: 09/22/17 Last written: 08/09/17 Prescription destination: [facility] 08/31/17 17:46 I will drop off at [facility] pharmacy. DMcGukirsten PATINO * Telephone Encounter - Maxine Pope RPh - 08/30/2017 8:29 PM CDT [facility] Pain Medication Refill Service - Pharmacist's [...] There are no unexpected entries on the SCRAP PICKER and refill frequency is every 28-30 days. Opioid agreement signed 01/12/17 with Coco Leos. Urine Drug Screen: 07/09/17 confirmed (+) OC, norOC, OM, & norOM, as expected Respiratory Depression Risk Score >3; anti-depressant and long acting opioid prescribed, emergency visit within last 6 months and history of opioid abuse (UI ETC 05/12; hx/o METH, MELECIO) Morphine equivalent dose is 105 mg/day. nuclear medical tech is available. Emergency intranasal naloxoneis warranted at this time. Prescriptions pended for Coco Leos, last visit: 08/09; return visit: 09/22. Please send orders to [facility] pharmacy for pick-up. Thank you, Maxine Pope, Cristina, [facility], BCACP documented in this encounter Plan of Treatment Not on file documented as of this encounter Visit Diagnoses Diagnosis Other chronic pain documented in this encounter Additional Health Concerns Assessment Noted Time PHQ-2 Depression Total Score: 0 08/09/20 17 9:37 AM CDT documented as of this encounter Care Teams Issuer Relationship Specialty Start Date End Date Coco Leos PA-C [address] [place] [address] PCP - General Physician Flange Turner 02/17/17 12/15/22 documented as of this encounter
--- OUTSIDE RECORDS SUMMARY | 2024-11-23 10:37 | XMS_ITS | Encounter Summary ---
Author Organization [facility] Care Address [address] [place] [address] Phone Care Team Providers Care Emergency Detail Driver Name Role Phone Stephanie Giron PA-C Primary Care Provider [phone] Reason for Referral * Internal Referral (D. Within 4 weeks) - Closed Specialty Diagnoses / Procedures Referred By Celine t Referred To Contact Otolaryngology Diagnoses Tinnitus of both ears Balance problem Stephanie Giron PA-C [address] [place] [address] Phone: tel: fax: [facility] Otolaryngology - General/Rhinology [address] [place] [address] Phone: tel: fax: Referral ID Status Reason Start Date Expiration Date Visits Re quested Visits Authorized [id number] Closed 09/22/2017 1 1 Question Answer Priority: D. Within 4 weeks Requested Action: Referral (Transfer of care) Faculty Physician/Staff Clinician requesting consultation: STEPHANIE GIRON [[id number]] Comments Clinical Question to be answered: pt with long history of tinitus, worse after injury in April. Also with balance issues. ? Meniere's please evaluate and treat. IC RELATIONS COUNSELOR Reason for Visit * Reason Comments Knee Pain 5-6wk rtn Encounter Details Date Type Department Care Team (Late st Contact Info) Description 09/22/2017 10:15 AM PUBLIC RELATIONS COUNSELOR Office Visit [facility] [address] [place] [address] [place] [phone] Bon Min [address] [place] [address] Stephanie Giron PA-C [address] [place] [address] Social History Tobacco Use Types Packs/Day Years [...] Comments Blood Pressure 112/77 09/22/2017 10:39 AM PUBLIC RELATIONS COUNSELOR Pulse 88 09/22/2017 10:39 AM PUBLIC RELATIONS COUNSELOR Temperature - - Respiratory Rate - - Oxygen Saturation - - Inhaled Oxygen Concentration - - Weight 86.8 kg (191 lb 5.8 oz) 09/22/2017 10:39 AM PUBLIC RELATIONS COUNSELOR Height - - Body Mass Index 27.09 09/22/2017 8:26 AM PUBLIC RELATIONS COUNSELOR documented in this encounter Patient Instructions * Discharge Instructions* Stephanie Giron PA-C - 09/22/2017 11:36 AM PUBLIC RELATIONS COUNSELOR Please try stopping the gabapentin to see if makes a difference. If you sleep better with it, you can restart it. Start duloxetine 30 mg once a day in the morning. Continue other medications as ordered, contact the pharmacy for refills. I referred to ear, nose, throat I ordered vit D level Hip XR EMG, nerve test of left leg. IC RELATIONS COUNSELOR documented in this encounter Progress Notes * Stephanie Giron PA-C - 09/22/2017 10:15 AM CST Clinic Note Encounter Date: 09/22/2017 Subjective: Chief Complaint: Chief Complaint Patient presents with ??? Knee Pain 5-6wk rtn History of Present Illness:Edilberto Ellington Chandan is a 61 y.o. Established pt whom I am familiar with, presents to the Department of Family Medicine [facility] for 1 month follow up chronic pain management and post concussion syndrome. Pleasant 61-year-old male with chronic pain on chronic narcotic contract with recent injury at workresulting in lumbar spine fracture, head laceration and shoulder injury. Still being followed by work [facility] in [place]. Since that incident he is now having left lumbar radicular symptoms and L3-L4 pattern to the level of the knee. He also is having symptoms consistent with postconcussion syndrome including aches, dizziness, fatigue, memory problems, concentration problems. He did have a Brain MRI through [facility] in and it was normal. [...] has been followed by [facility] in [place] and ortho spine at [facility]. The work-well doctors would like an [...] receiving medications through us and utilizing the [facility]. He reports that he is [...] worker's compensation claim 04/16/2017 Back 05/11/2017 ??? terminal superintendent current use of opiate analgesic 05/11/2017 ??? [...] History Narrative Mr. 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 Since that incident he is now having [...] test of left leg. Stephanie Giron PA-C [facility] Department of Family Medicine [address] [place] [address] IC RELATIONS COUNSELOR documented in this encounter Miscellaneous Notes * Addendum Note - Stephanie Giron PA-C - 09/22/2017 10:15 AM CSTAddended by: STEHPANIE GIRON on: 09/22/2017 05:31 PM Modules accepted: Orders IC RELATIONS COUNSELOR documented in this encounter Plan of Treatment Scheduled Referrals Name Type Priority Associated Diagnoses Order Schedule OUTPATIENT CONSULT OTOLARYNGOLOGY - DIVISION UNSPECIFIED Outpatient Referral Routine Tinnitus of both ears Balance problem 1 Occurrences starting 09/22/2017 until 03/22/2019 documented as of this encounter Procedures Procedure Name Priority Date/Time Associated Diagnosis Comments VITAMIN D, 25-HYDROXY Routine 09/22/2017 12:14 PM PUBLIC RELATIONS COUNSELOR Vitamin D insufficiency COMPREHENSIVE METABOLIC PANEL (CMP) Routine 09/22/2017 12:14 PM PUBLIC RELATIONS COUNSELOR Medication management documented in this encounter Results * EMG (10/19/2017 11:20 AM PUBLIC RELATIONS COUNSELOR) Narrative Stacey Rangel - 10/19/2017 11:20 AM PUBLIC RELATIONS COUNSELOR Stacey Rangel ? 10/19/2017 11:20 AM Reason [...] AP & LAUENSTEIN LEFT (09/22/2017 12:34 PM PUBLIC RELATIONS COUNSELOR) Anatomical Region Laterality Modality lower extremity Computed Radiogr aphy Impressions 09/22/2017 3:21 PM PUBLIC RELATIONS COUNSELOR Findings / Impression: No acute fracture or dislocation. Stable left total hip arthroplasty without radiographic evidence of complication. Narrative 09/22/2017 3:21 PM PUBLIC RELATIONS COUNSELOR Procedure: HIP AP & LAUENSTEIN LEFT Clinical [...] COMPREHENSIVE METABOLIC PANEL (CMP) (09/22/2017 12:14 PM PUBLIC RELATIONS COUNSELOR) Sodium 138 135 - 145 mEq/L 09/22/2017 12:54 PM PUBLIC RELATIONS COUNSELOR [facility] Potassium 4.1 3.5 - 5.0 mEq/L 09/22/2017 12:54 PM PUBLIC RELATIONS COUNSELOR [facility] Chloride 101 95 - 107 mEq/L 09/22/2017 12:54 PM PUBLIC RELATIONS COUNSELOR [facility] CO2 24 22 - 29 mEq/L 09/22/2017 12:54 PM PUBLIC RELATIONS COUNSELOR [facility] BUN (blood urea nitrogen) 11 10 - 20 mg/dL 09/22/2017 12:54 PM PUBLIC RELATIONS COUNSELOR [facility] Creatinine 0.9 0.6 - 1.2 mg/dL 09/22/2017 12:54 PM PUBLIC RELATIONS COUNSELOR [facility] Comment: Creatinine switched to enzymatic method on 03/24/2011. ??GFR equation switched to IDMS-traceable MDRD equation on 03/24/2011. Calculated GFR values are not valid in clinical settings where serum creatinine is changing. Glucose 103(H) 65 - 99 mg/dL 09/22/2017 12:54 PM PUBLIC RELATIONS COUNSELOR [facility] Comment: The Expert Committee on the Diagnosis and Classification of Diabetes has defined impaired fasting glucose as greater than or equal to 100 mg/dL but less than 126 mg/dL. ??(Diabetes Care 28 (Suppl 1) S41,2005) Calcium 9.2 8.5 - 10.5 mg/dL 09/22/2017 12:54 PM PUBLIC RELATIONS COUNSELOR [facility] Total Protein 7.1 6.0 - 8.0 g/dL 09/22/2017 12:54 PM PUBLIC RELATIONS COUNSELOR [facility] Albumin 4.4 3.4 - 4.8 g/dL 09/22/2017 12:54 PM PUBLIC RELATIONS COUNSELOR [facility] AST (Aspartate Aminotransferase) 25 0 - 40 U/L 09/22/2017 12:54 PM PUBLIC RELATIONS COUNSELOR [facility] Comment: Adult reference ranges updated on 10/10/13 at 830am ALP (Alkaline Phosphatase) 73 40 - 129 U/L 09/22/2017 12:54 PM PUBLIC RELATIONS COUNSELOR [facility] Bilirubin, Total 0.7 <=1.2 mg/dL 09/22/2017 12:54 PM PUBLIC RELATIONS COUNSELOR [facility] ALT (Alanine Aminotransferase) 26 0 - 41 U/L 09/22/2017 12:54 PM PUBLIC RELATIONS COUNSELOR [facility] Comment: The upper limit of [...] Gap 13 <17 mEq/L 09/22/2017 12:54 PM PUBLIC RELATIONS COUNSELOR [facility] eGFR - Calculated 85 >60 mL/min/1. 73 m2 09/22/2017 12:54 PM PUBLIC RELATIONS COUNSELOR [facility] Blood specimen (specimen) 09/22/2017 12:14 PM PUBLIC RELATIONS COUNSELOR 09/22/2017 12:27 PM PUBLIC RELATIONS COUNSELOR us Stephanie Giron PA-C CHEMISTRY ORDERABLES Final R esult [facility] [address] [address] * VITAMIN D, 25-HYDROXY (09/22/2017 12:14 PM PUBLIC RELATIONS COUNSELOR) Vitamin D, 25-Hydroxy 22 20 - 80 ng/mL 09/22/2017 1:16 PM PUBLIC RELATIONS COUNSELOR [facility] Comment: This assay accurately quantifies the sum of 25-hydroxyvitamin D3 and 25-hydroxyvitamin D2. Endocrine Society, [place] of Medicine (IOM), and World Health Organization [...] ng/mL. Blood specimen (specimen) 09/22/2017 12:14 PM PUBLIC RELATIONS COUNSELOR 09/22/2017 12:27 PM PUBLIC RELATIONS COUNSELOR us Stephanie Giron PA-C CHEMISTRY ORDERABLES Final R esult [facility] [address] [address] documented in this encounter Visit Diagnoses Diagnosis [...] as of this encounter Care Teams Emergency Detail Driver Relationship Specialty Start Date End Date Stephanie Giron PA-C [address] [place] [address] PCP - General Physician Education Finance Processor 02/17/17 12/15/22 documented as of this encounter
--- OUTSIDE RECORDS SUMMARY | 2024-11-23 10:37 | XMS_ITS | Encounter Summary ---
Author Organization [facility] Care Address [address] [place] [address] Phone Care Team Providers Care Purification Director Name Role Phone Coco Leos PA-C Primary Care Provider [phone] Provider, No-Primary Care Primary Care Provider Unavailable Encounter Details Date Type Department Care Team (Late st Contact Info) Description 09/22/2017 Pharmacy Visit RX [facility] [address] [place] [phone] Social History Tobacco Use Types Packs/Day [...] documented as of this encounter Care Teams Purification Director Relationship Specialty Start Date End Date Coco Leos PA-C [address] [place], [place] [phone] PCP - General Physician Transformer Coil Winder 02/17/17 12/15/22 Provider, No-Primary Care [place] PCP - General 12/16/22 documented as of this encounter
--- OUTSIDE RECORDS SUMMARY | 2024-11-23 10:37 | XMS_ITS | Encounter Summary ---
Author Organization [facility] Care Address [address] [place] [address] Phone Care Team Providers Care Vacuum Conditioner Operator Name Role Phone Coco Leos PA-C Primary Care Provider [phone] Provider, No-Primary Care Primary Care Provider Unavailable Encounter Details Date Type Department Care Team (Late st Contact Info) Description 09/07/2017 Pharmacy Visit RX [facility] [address] [place] [phone] Social History Tobacco Use Types Packs/Day [...] documented as of this encounter Care Teams Vacuum Conditioner Operator Relationship Specialty Start Date End Date Coco Leos PA-C [address] [place], [place] [phone] PCP - General Physician Drug Abuse Technician 02/17/17 12/15/22 Provider, No-Primary Care [place] PCP - General 12/16/22 documented as of this encounter
--- OUTSIDE RECORDS SUMMARY | 2024-11-23 10:37 | XMS_ITS | Encounter Summary ---
Author Organization [facility] Care Address [address] [place] [address] Phone Care Team Providers Care Yard Supervisor Cotton Gin Name Role Phone Coco Leos PA-C Primary Care Provider [phone] Reason for Visit * Reason Comments Patient Reported Reason For Visit legal Encounter Details Date Type Department Care Team (Latest Contact Info) Description 09/08/2017 8:00 AM CDT - 09/08/2017 8:52 AM CDT [facility] Neurology - Neuropsychology Lab [address] [place] [phone] Elpidio Robles, PhD [address] [place] [phone] Elpidio Robles Phd - Npsych [facility]-NEUROLOGY [place], [place] [phone] Discharge Disposition: Home or Self Care Social [...] needed. 35.44 g 11 01/12/2017 5:22 PM FOREIGN BANKNOTE TELLER 01/12/2017 omeprazole 20 mg enteric coated capsule [...] bedtime. 60 capsule 11 10/11/2017 12:12 PM FOREIGN BANKNOTE TELLER 08/09/2017 7 naloxone 1 mg/mL injection syringe [...] daily. 30 capsule 2 10/11/2017 12:12 PM FOREIGN BANKNOTE TELLER 08/09/2017 7 documented as of this encounter [...] DATE OF SERVICE: 09/08/2017 Patient: Edilberto Hawley [facility] #: [id number] Date of Injury: April 16, 2017 Date [...] to us by [facility] in [place], [place]. Premorbid Records Mr. Hawley was evaluated on 05/25/83 for an accident in which he suffered exposure to xylene. He suffered virk to his body. He was treated at [facility] and recovered. Mr. Hawley was evaluated in the ED at [facility] on 07/25/16 for right-sided thoracic back pain. He was treated with pain medications. He was seen at [facility] on 09/30/16 for chronic pain complaints. It was noted that he had been on disability ???for a long time,?? but recently was able to go back to work, and this ???improved his mental health.?? Ms. Leos referred him for pain management. Ms. Leos saw him at [facility] on 01/12/17 for follow-up of numerous pain complaints. Referral to the painclinic was recommended. He has chronic opioid medication use. Ms. Leos saw him again on 04/09/17 for pain problems. He has more frequent headaches. He has numerous complaints of chronic pain issues. He uses oxycodone. He ???works through?? his pain, in a physically demanding job. Postmorbid Records Records from [facility] in [place], [place], indicate that Mr. Hawley was seen [...] seen in the Occupational Medicine clinic at [facility]s on 04/28/17. 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 He denied LOC. He had lumbar fractures. He has a PMH of sleep apnea and arthritis. He had carolann in his right occipital scalp. He was instructed to not return to work yet. His carolann were removed on 05/04/17, without difficulty. Mr. Hawley was seen at [facility] on 05/12/17. It was noted that he had a premorbid history of back pain,treated with ESIs (that were helpful). He currently reports worsening pain since the recent accident. He has a workers??? compensation claim. He was a [place] [facility] opioid medication user. He was given activity [...] problems. Dr. Fowler saw Mr. Hawley in [facility] Orthopedics on 05/12/17. It was noted that Mr. Hawley had a premorbid history of back pain (e.g., seen at [facility] on 07/25/16 for severe back pain, and treated with KOTA). Mr. Hawley had a left hip replacement on 10/01/16. His neurological status was intact. Dr. Fowler diagnosed him with back pain and intermediate frame tender opiate analgesic use. He was given work restrictions and advised to not drive while taking sedating medications. Dr. Lake saw the patient in the [facility] ED on 05/12/17. Mr. 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 His lumbar fractures were healing [...] and concentration problems. She recommended neuropsychological evaluation. [facility] Identifying Information Edilberto Hawley is a 61-year-old, right-handed (+100) man. 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 Mr. Hawley was unaccompanied to our evaluation. Mr. 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 He explained that he has not [...] II Faces I & II Spatial Span Hyden Diagnostic Aphasia Exam: Hyden Naming Test Complex Ideational Material Test Category [...] focused attention was low average. Executive Functioning: [place]-making performance with the addition of executive demands [...] Professor, Neurology and Psychological and Brain Sciences BOILER CONTROL ROOM OPERATOR TIME, FACE TO FACE (COGNITIVE TESTING) [...] As long as needed Video/Handout: [email or web address] Pain Management - Exercise Pain Management No Coco Leos PA-C Note: Exercise: General Aerobic ?? Duration: 3 to 5 days per week for 20 minutes per day ?? Intensity: Moderate Strengthening: neither Back nor General (for widespread pain) nor Shoulder ?? Intensity: Moderate ?? Duration: 2 to 4 days per week ?? Instructions: See attached documentation for details Video/Handout: [email or web address] documented as of this encounter Procedures Procedure [...] OF SERVICE: ??09/08/2017 Patient: ?? Edilberto Hawley [facility] #: ??[id number] Date of Injury: April 16, 2017 Date [...] to us by [facility] [employer] [facility] [employer] in [place], [place]. Premorbid Records Mr. Hawley was evaluated on 05/25/83 for an accident in which he suffered exposure to xylene. ??He suffered virk to his body. ??He was treated at [facility] and recovered. Mr. Hawley was evaluated in the ED at [facility] on 07/25/16 for right-sided thoracic back pain. ??He was treated with pain medications. He was seen at [facility] on 09/30/16 for chronic pain complaints. ??It was noted that he had been on disability ? for a long time,? but recently was able to go back to work, and this ? improved his mental health.? ?? Ms. Leos referred him for pain management. Ms. Leos saw him at [facility] on 01/12/17 for follow-up of numerous pain complaints. ??Referral to the pain clinic was recommended. ?? He has chronic opioid medication use. Ms. Leos saw him again on 04/09/17 for pain problems. ??He has more frequent headaches. ??He has numerous complaints of chronic pain issues. ??He uses oxycodone. ??He ? works through? his pain, in a physically demanding job. Postmorbid Records Records from [facility] in [place], [place], indicate that Mr. Hawley was seen [...] seen in the Occupational Medicine clinic at [facility] on 04/28/17. 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 ??He denied LOC. ??He had lumbar fractures. ??He has a PMH of sleep apnea and arthritis. ??He had carolann in his right occipital scalp. He was instructed to not return to work yet. ??His carolann were removed on 05/04/17, without difficulty. Mr. Hawley was seen at [facility] on 05/12/17. ??It was noted that he had a premorbid history of back pain, treated with ESIs (that were helpful). He currently reports worsening pain since the recent accident. ??He has a workers? compensation claim. He was a [place] [facility] [place] opioid medication user. ??He was given activity [...] problems. Dr. Fowler saw Mr. Hawley in [facility] Orthopedics on 05/12/17. ??It was noted that Mr. Hawley had a premorbid history of back pain (e.g., seen at [facility] on 07/25/16 for severe back pain, and treated with KOTA). ??Mr. Hawley had a left hip replacement on 10/01/16. ?? His neurological status was intact. ??Dr. Fowler diagnosed him with back pain and intermediate frame tender opiate analgesic use. ??He was given work restrictions and advised to not drive while taking sedating medications. Dr. Lake saw the patient in the [facility] ED on 05/12/17. ??Mr. 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 ??His lumbar fractures were healing [...] and concentration problems. ??She recommended neuropsychological evaluation. [facility] Identifying Information Edilberto Hawley is a 61-year-old, right-handed (+100) man. He completed 6 years of formal education. 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 Mr. Hawley was unaccompanied to our evaluation. ?? Mr. Hawley? 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 He explained that he has not [...] II Faces I & II Spatial Span Hyden Diagnostic Aphasia Exam: Hyden Naming Test Complex Ideational Material Test Category [...] attention was low average. ?? Executive Functioning: [place]-making performance with the addition of executive demands [...] Professor, Neurology and Psychological and Brain Sciences BOILER CONTROL ROOM OPERATOR TIME, FACE TO FACE (COGNITIVE TESTING) [...] as of this encounter Care Teams Yard Supervisor Cotton Gin Relationship Specialty Start Date End Date Coco Leos PA-C [address] [place] [id number] PCP - General Physician Oxidation Operator 02/17/17 12/15/22 documented as of this encounter
--- OUTSIDE RECORDS SUMMARY | 2024-11-23 10:37 | XMS_ITS | Encounter Summary ---
Author Organization [facility] Care Address [address] [place] [address] Phone Care Team Providers Care Aircraft Life Support Fitter Name Role Phone Coco Leos PA-C Primary Care Provider [phone] Reason for Visit * Reason Comments Patient Reported Reason For Visit Patient Reported Reason For Visit Encounter Details Date Type Department Care Team (Latest Contact Info) Description 09/29/2017 1:25 PM RN REHAB - 09/29/2017 11:59 PM [facility] Hospital Encounter Medical [facility] - Radiology - Musculoskeletal [address] [place] [address] Aranza Bradley MD [address] [place] [address] Discharge Disposition: Home or Self Care Social [...] needed. 35.44 g 11 01/12/2017 5:22 PM RN REHAB 01/12/2017 omeprazole 20 mg enteric coated capsule [...] daily. 30 capsule 11 10/11/2017 12:12 PM RN REHAB 09/22/2017 7 gabapentin 100 mg capsuleIndicatio ns:neuropathic pain Take 2 capsules (200 mg total) by mouth at bedtime. 60 capsule 11 10/11/2017 12:12 PM RN REHAB 08/09/2017 7 naloxone 1 mg/mL injection syringe [...] daily. 30 capsule 2 10/11/2017 12:12 PM RN REHAB 08/09/2017 7 documented as of this encounter Plan of Treatment Not on file documented as of this encounter Procedures Procedure Name Priority Date/Time Associated Diagnosis Comments L SPINE AP & LATERAL STANDING Routine 09/29/2017 1:54 PM RN REHAB Low back pain documented in this encounter Results * L SPINE AP & LATERAL STANDING (09/29/2017 1:54 PM RN REHAB) Anatomical Region Laterality Modality Spine RAD MSK modality Impressions 09/29/2017 2:45 PM RN REHAB Findings / Impression: There are 5 lumbar type vertebrae. L1-L3 right transverse process fractures reported on prior CT not clearly visualized. L3 compression deformity appear grossly stable since the prior. Multilevel facet hypertrophy, moderate to severe at L3-L4, L4/L5, and L5-S1, grossly stable. Narrative 09/29/2017 2:45 PM RN REHAB Procedure: L SPINE AP & LATERAL STANDING [...] documented as of this encounter Care Teams Aircraft Life Support Fitter Relationship Specialty Start Date End Date Coco Leos PA-C [address] [place], [place] [phone] PCP - General Physician Pin Drafting Machine Tender 02/17/17 12/15/22 documented as of this encounter
--- OUTSIDE RECORDS SUMMARY | 2024-11-23 10:38 | XMS_ITS | Encounter Summary ---
Author Organization [facility] Care Address [address] [place] [address] Phone Care Team Providers Care Dietician Name Role Phone Coco Leso PA-C Primary Care Provider [phone] Reason for Visit * Reason Onset Date Comments Medication Refill 03/11/2017 Encounter Details Date Type Department Care Team (Late st Contact Info) Description 03/11/2017 Refill [facility] [address] [place] [address] [place] [phone] Maxine Pope [address] [place] [address] Social History Tobacco Use Types [...] IR 03/12/17 15:58 Rx placed in pharmacy pickling drum operator folder. DMcGukirsten MA * Telephone Encounter - Maxine Pope RPh - 03/11/2017 2:05 PM CDT [facility] Pain Medication Refill Service - Pharmacist's [...] There are no unexpected entries on the ELECTRIC MOTOR ANALYST and refill frequency is every 29-30 days. Opioid agreement signed 01/12/17 with Coco Leos PA-C. Urine Drug Screen: 01/12/17 (+) OC and metabolites as expected. Respiratory Depression Risk Score 3; long acting opioid prescribed, emergency visit within last 6 months and history of opioid abuse (ETC 01/27 & 02/02; remote use cocaine & MAMPH). Of note: [place] does not have a ELECTRIC MOTOR ANALYST. Morphine equivalent dose is 105 mg/day. rental clerk is available. Emergency intranasal naloxoneis warranted at this time. Prescriptions pended for Coco Leos PA-C, last visit: 01/12; return visit: 04/05. Please send orders to [facility] pharmacy for pick-up. Thank you, Maxine Pope, Cristina, [facility], BCACP documented in this encounter Plan of Treatment Not on file documented as of this encounter Visit Diagnoses Diagnosis Low back pain with radiation, right- Primary Other chronic pain documented in this encounter Additional Health Concerns Assessment Noted Time PHQ-2 Depression Total Score: 0 09/30/20 16 3:26 PM ATM SERVICER documented as of this encounter Care Teams Dietician Relationship Specialty Start Date End Date Coco Leos PA-C [address] [place], [place] [phone] PCP - General Physician Support Specialist 02/17/17 12/15/22 documented as of this encounter
--- OUTSIDE RECORDS SUMMARY | 2024-11-23 10:38 | XMS_ITS | Encounter Summary ---
Author Organization [facility] Care Address [address] [place] [address] Phone Care Team Providers Care Merchandise Planner Name Role Phone Coco Leos PA-C Primary Care Provider [phone] Reason for Visit * Reason Comments Medical Excuse Request Encounter Details Date Type Department Care Team (Late st Contact Info) Description 05/25/2017 [facility] - Orthopedics - Work Injury Recovery [address] [place] [address] Floyd Fowler MD [address] [place], [place] [phone] Social History Tobacco Use Types Packs/Day Years [...] Mays RN - 05/25/2017 12:33 PM CDT 05/24/2017@2424-Voicemail from patient reporting that he didn't feel good this morning and was hurting really bad so he didn't go to work. Patient reports that he currently has restrictions of no driving and no lifting greater than 10lbs. Patient reports that his employer is upset that he did not go to work and he would like a return phone call as soon as possible. 05/25/2017@1695-Left voicemail for patient to return my phone [...] of use: As long as needed Video/Handout: [email or web address] Pain Management - Exercise Pain Management No Coco Leos PA-C Note: Exercise: General Aerobic ?? Duration: 3 to 5 days per week for 20 minutes per day ?? Intensity: Moderate Strengthening: neither Back nor General (for widespread pain) nor Shoulder ?? Intensity: Moderate ?? Duration: 2 to 4 days per week ?? Instructions: See attached documentation for details Video/Handout: [email or web address] documented as of this encounter Visit Diagnoses Not on filedocumented in this encounter Additional Health Concerns Assessment Noted Time PHQ-2 Depression Total Score: 0 04/09/20 17 2:55 PM CDT documented as of this encounter Care Teams Merchandise Planner Relationship Specialty Start Date End Date Coco Leos PA-C [address] [place] [id number] PCP - General Physician Assistant Passenger Locomotive Engineer 02/17/17 12/15/22 documented as of this encounter
--- OUTSIDE RECORDS SUMMARY | 2024-11-23 10:38 | XMS_ITS | Encounter Summary ---
Author Organization [facility] Care Address [address] [place] [address] Phone Care Team Providers Care Relationship Executive Name Role Phone Stephanie Giron PA-C Primary Care Provider [phone] Reason for Visit * Reason Comments Patient Reported Reason For Visit jillian e irl irl aware of fasting Patient Reported Reason For Visit jillian e irl irl aware of fasting Encounter Details Date Type Department Care Team (Latest Contact Info) Description 04/23/2017 7:55 AM CDT - 04/23/2017 11:59 PM CDT Hospital Encounter [facility] - Radiology [address] [address] Yassine Gale [address] [place] [address] Discharge Disposition: Home or Self [...] needed. 35.44 g 11 01/12/2017 5:22 PM PUBLIC SPEAKING TEACHER 01/12/2017 omeprazole 20 mg enteric coated [...] bedtime. 30 capsule 11 01/12/2017 5:22 PM PUBLIC SPEAKING TEACHER 01/12/2017 7 naloxone 1 mg/mL injection [...] Diagnosis Comments US RUQ AND LIVER DOPPLER ([id number]) Routine 04/23/2017 8:30 AM CDT Esophageal varices without bleeding, unspecified esophageal varices type (HCC) documented in this encounter Results * US RUQ AND LIVER DOPPLER ([id number]) (04/23/2017 8:30 AM CDT) Anatomical Region Laterality Modality Ultrasound 04/23/2017 8:13 AM CDT Impressions 04/23/2017 12:21 PM CDT Impression: 1. Fibrofatty infiltration of the liver. 2. No evidence of portal hypertension. --- Final --- Narrative 04/23/2017 12:21 PM CDT [facility] ?? [facility] Department of Radiology ?? Ultrasound Division ? [address] ?? [place] [address] ULTRASOUND REPORT NAME: ?EDILBERTO DURAND Date of Service: 04/23/2017 MRN NO.: ? [id number] ? Review Date: ? 04/23/2017 Patient's : [...] Procedure Note Shyanne-Yassine Jones MD - 04/23/2017 [facility] Department of Radiology Ultrasound Division [address] [place] [phone] ULTRASOUND REPORT NAME: EDILBERTO DURAND Date of Service: 04/23/2017 MRN NO.: [id number] Review Date: 04/23/2017 Patient's : 1955 Resident/Tech: [...] documented as of this encounter Care Teams Relationship Executive Relationship Specialty Start Date End Date Stephanie Giron PA-C [address] [place] [address] PCP - General Physician Music Therapist [employer] 02/17/17 12/15/22 documented as of this encounter
--- OUTSIDE RECORDS SUMMARY | 2024-11-23 10:38 | XMS_ITS | Encounter Summary ---
Author Organization [facility] Care Address [address] [place] [address] Phone Care Team Providers Care Intensive Care Unit Nurse Name Role Phone Coco Leos PA-C Primary Care Provider [phone] Reason for Visit * Reason Comments Patient Reported Reason For Visit Patient Reported Reason For Visit Encounter Details Date Type Department Care Team (Latest Contact Info) Description 06/09/2017 8:44 AM CDT - 06/09/2017 11:59 PM CDT Hospital Encounter Medical [facility] - Radiology - Musculoskeletal [address] [place] [phone] Aranza Bradley MD [address] [place], [place] [phone] Discharge Disposition: Home or Self Care Social [...] needed. 35.44 g 11 01/12/2017 5:22 PM ORAL PATHOLOGIST 01/12/2017 omeprazole 20 mg enteric coated capsule [...] bedtime. 30 capsule 11 01/12/2017 5:22 PM ORAL PATHOLOGIST 01/12/2017 7 naloxone 1 mg/mL injection syringe [...] documented as of this encounter Care Teams Intensive Care Unit Nurse Relationship Specialty Start Date End Date Coco Leos PA-C [address] [place] [address] PCP - General Physician Speech Coach 02/17/17 12/15/22 documented as of this encounter
--- OUTSIDE RECORDS SUMMARY | 2024-11-23 10:38 | XMS_ITS | Encounter Summary ---
Author Organization [facility] Care Address [address] [place] [address] Phone Care Team Providers Care Foundation Drill Operator Name Role Phone Provider, No-Primary Care Primary Care Provider Unavailable Reason for Visit * Reason Comments Fall Pt fell a week ago a t [employer] while working. Now having left lower back pain and left wrist pain. Encounter Details Date Type Department Care Team (Late st Contact Info) Description 02/02/2017 3:51 AM CDT - 02/02/2017 6:32 AM CDT [facility] [place] [phone] Discharge Disposition: OP Only - Left Without [...] needed. 35.44 g 11 01/12/2017 5:22 PM BAGGAGE INSPECTOR 01/12/2017 omeprazole 20 mg enteric coated capsule Take 20 mg by mouth daily. cyclobenzaprine 10 mg tablet Take 10 mg by mouth at bedtime. 07/19/2014 7 gabapentin 100 mg capsuleIndicatio ns:Other chronic pain Take 1 capsule (100 mg total) by mouth at bedtime. 30 capsule 11 01/12/2017 5:22 PM BAGGAGE INSPECTOR 01/12/2017 7 oxyCODONE (OXYCONTIN) 15 mg XR tabletIndication s:chronic pain Take 1 tablet (15 mg total) by mouth 2 times daily. Earliest Fill Date: 02/09/17 60 tablet 02/11/2017 4:08 PM CDT 02/09/2017 7 oxyCODONE-acetam inophen 10-325 mg per tabletIndication s:Other chronic pain Take 1 tablet by mouth every 4 hours as needed (to be filled at [facility] ONLY). 120 tablet 01/12/2017 5:22 PM BAGGAGE INSPECTOR 01/12/2017 7 documented as of this encounter [...] As long as needed Video/Handout: [email or web address] Pain Management - Exercise Pain Management No Coco Leos PA-C Note: Exercise: General Aerobic ?? Duration: 3 to 5 days per week for 20 minutes per day ?? Intensity: Moderate Strengthening: neither Back nor General (for widespread pain) nor Shoulder ?? Intensity: Moderate ?? Duration: 2 to 4 days per week ?? Instructions: See attached documentation for details Video/Handout: [email or web address] documented as of this encounter Visit Diagnoses Diagnosis Lumbago- Primary documented in this encounter Additional Health Concerns Assessment Noted Time PHQ-2 Depression Total Score: 0 09/30/20 16 3:26 PM BAGGAGE INSPECTOR documented as of this encounter Care Teams Foundation Drill Operator Relationship Specialty Start Date End Date Provider, No-Primary Care [place] PCP - General 01/12/17 02/16/17 documented as of this encounter
--- OUTSIDE RECORDS SUMMARY | 2024-11-23 10:38 | XMS_ITS | Encounter Summary ---
Author Organization [facility] Care Address [address] [place] [address] Phone Care Team Providers Care Event Management Consultant Name Role Phone Coco Leos PA-C Primary Care Provider [phone] Reason for Visit * Reason Comments Patient Reported Reason For Visit Patient Reported Reason For Visit Encounter Details Date Type Department Care Team (Latest Contact Info) Description 04/19/2017 11:53 AM CDT - 04/19/2017 11:59 PM CDT Hospital Encounter [facility] - Radiology [address] [phone] Carlos Enrique Segal MD [address] [place] [address] Discharge Disposition: Home or Self [...] needed. 35.44 g 11 01/12/2017 5:22 PM CHAMPION OF SUSTAINABLE DESIGN 01/12/2017 omeprazole 20 mg enteric coated capsule [...] bedtime. 30 capsule 11 01/12/2017 5:22 PM CHAMPION OF SUSTAINABLE DESIGN 01/12/2017 7 naloxone 1 mg/mL injection syringe [...] documented as of this encounter Care Teams Event Management Consultant Relationship Specialty Start Date End Date Coco Leos PA-C [address] [place] [address] PCP - General Physician Manager Category 02/17/17 12/15/22 documented as of this encounter
--- OUTSIDE RECORDS SUMMARY | 2024-11-23 10:38 | XMS_ITS | Encounter Summary ---
Author Organization [facility] Care Address [address] [place] [address] Phone Care Team Providers Care Parts Counter Sales Person Name Role Phone Coco Leos PA-C Primary Care Provider [phone] Reason for Visit * Reason Onset Date Comments Back Pain 06/24/2017 Encounter Details Date Type Department Care Team (Late st Contact Info) Description 06/24/2017 Telephone [facility] [address] [facility] [address] [place] [address] Coco Leos PA-C [address] [place] [address] Social History Tobacco Use Types [...] comp. Is seeing [facility] in [place] and they are wondering if there is [...] It looks he seeing someone at the [facility] regarding his lumbar spine fracture and has a followupwith them on July 07. If he seeing another clinic in [place] and they want me to order an [...] Leos and agrees with getting records from [facility] and bring to appt on 07-09-17 with [...] documented as of this encounter Care Teams Parts Counter Sales Person Relationship Specialty Start Date End Date Coco Leos PA-C [address] [place], [place] [phone] PCP - General Physician Dry Kiln Operator 02/17/17 12/15/22 documented as of this encounter
--- OUTSIDE RECORDS SUMMARY | 2024-11-23 10:38 | XMS_ITS | Encounter Summary ---
Author Organization [facility] Care Address [address] [place] [address] Phone Care Team Providers Care Newspaper Journalist Name Role Phone Coco Leos PA-C Primary Care Provider [phone] Reason for Referral * Referral (E. Within 3 months) - Closed Specialty Diagnoses / Procedures Referred By Contjessica t Referred To Contact Dermatology Diagnoses Skin lesion of right ear Coco Leos PA-C [address] [place] [address] Phone: tel: fax: [facility] - Dermatology [address] [place] [address] Phone: tel: fax: Referral ID Status Reason Start Date Expiration Date Visits Re quested Visits Authorized [id number] Closed 07/09/2017 12/31/2018 1 1 Question Answer [...] Description 07/09/2017 7:45 AM CDT Office Visit [facility] [address] [place] [address] [place] [phone] [place] [address] [place] [address] Coco Leos PA-C [address] [place], [place] [phone] Social History Tobacco Use Types Packs/Day Years [...] presents to the Department of Family Medicine [facility] for follow up chronic pain management. In interim since his last visit here he suffered an injury at work, a fall from a height and sustained a lumbar spine fracture, scalp laceration and injured his left shoulder. He has been followed by [facility] in [place] and ortho spine at [facility]. The work-well doctors would like an [...] twice a weak and balance therapy at [facility]. He now has a TENS [...] medications through us and utilizing the [facility]. 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 URINALYSIS WITH REFLEX CULTURE Value Value Units Color, Urine Yellow Straw, Pale Yellow, Yellow, Clear, None Clarity, Urine Clear Clear pH, Urine 6.5 <9.0 Spec Meigs, Urine 1.015 >1.000-<1.030 Glucose, Urine Negative Negative [...] being followed by work will clinic in [place]. Since that incident he is now having [...] medication, see pain clinic Coco Leos PA-C [facility] Department of Family Medicine [facility] [address] [place] [address] [address] [place] [address] documented in this encounter Plan of Treatment [...] PhD - 09/13/2017 4:14 PM CDT Elpidio Roblse, PhD ? 09/13/2017 ??4:14 PM NEUROPSYCHOLOGY CONSULT [...] OF SERVICE: ??09/08/2017 Patient: ?? Edilberto Hawley [facility] #: ??[id number] Date of Injury: April 16, 2017 Date [...] to us by Miguel Earl of the [employer] in [place], [place]. Premorbid Records Mr. Hawley was evaluated on 05/25/83 for an accident in which he suffered exposure to xylene. ??He suffered virk to his body. ??He was treated at [facility] and recovered. Mr. Hawley was evaluated in the ED at [facility] on 07/25/16 for right-sided thoracic back pain. ??He was treated with pain medications. He was seen at [facility] on 09/30/16 for chronic pain complaints. ??It was noted that he had been on disability ? for a long time,? but recently was able to go back to work, and this ? improved his mental health.? ?? Ms. Leos referred him for pain management. Ms. Leos saw him at [facility] on 01/12/17 for follow-up of numerous [...] [facility] in [place], [place], indicate that Mr. Hawley was seen [...] [facility]. 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 ??He denied LOC. ??He had lumbar fractures. ??He has a PMH of sleep apnea and arthritis. ??He had carolann in his right occipital scalp. He was instructed to not return to work yet. ??His carolann were removed on 05/04/17, without difficulty. Mr. Hawley was seen at [facility] on 05/12/17. ??It was noted that he had a premorbid history of back pain, treated with ESIs (that were helpful). He currently reports worsening pain since the recent accident. ??He has a workers? compensation claim. He was a fci opioid medication user. ??He was given activity [...] problems. Dr. Fowler saw Mr. Hawley in [facility] Orthopedics on 05/12/17. ??It was noted that Mr. Hawley had a premorbid history of back pain (e.g., seen at [facility] on 07/25/16 for severe back pain, and treated with KOTA). ??Mr. Hawley had a left hip replacement on 10/01/16. ?? His neurological status was intact. ??Dr. Fowler diagnosed him with back pain and intermodal dispatcher opiate analgesic use. ??He was given work restrictions and advised to not drive while taking sedating medications. Dr. Lake saw the patient in the [facility] ED on 05/12/17. ??Mr. 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 ??His lumbar fractures were healing [...] and concentration problems. ??She recommended neuropsychological evaluation. [facility] Identifying Information Edilberto Hawley is a 61-year-old, right-handed (+100) man. He completed 6 years of formal education. 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 Mr. Hawley was unaccompanied to our evaluation. ?? Mr. Hawley? 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 Records indicated he sustained a lumbar spine [...] for depression in the secondary to traumatic outdoor recreation specialist experiences. He explained that he has not [...] II Faces I & II Spatial Span [place] Diagnostic Aphasia Exam: [place] Naming Test Complex Ideational Material Test Category [...] attention was low average. ?? Executive Functioning: [place]-making performance with the addition of executive demands [...] Professor, Neurology and Psychological and Brain Sciences FISH INSPECTOR TIME, FACE TO FACE (COGNITIVE TESTING) 4 [...] RANDOM URINE Final Result Performing Organization Address City/[facility] Co de Phone Number [facility] [address] [address] * URINALYSIS WITH REFLEX CULTURE (07/09/2017 9:36 AM CDT) Color - Urine Yellow Straw, Pale Yellow, Yellow, Clear, None 07/09/2017 9:58 AM CDT [facility] Clarity - Urine Clear Clear 07/09/2017 9:58 AM CDT [facility] pH - Urine 6.5 <9.0 07/09/2017 9:58 AM CDT [facility] Specific Meigs - Urine 1.015 >1.000-<1.03 0 07/09/2017 9:58 [...] RANDOM URINE Final Result Performing Organization Address City/[facility]/ZIP Co de Phone Number [facility] [address] [address] * VITAMIN D, 25-HYDROXY (07/09/2017 9:36 AM CDT) Vitamin D, 25-Hydroxy 24 20 - 80 ng/mL 07/09/2017 10:37 AM CDT [facility] Comment: This assay accurately quantifies the sum of 25-hydroxyvitamin D3 and 25-hydroxyvitamin D2. Endocrine Society, [place] of Medicine (IOM), and World Health Organization [...] ORDERABLES Final R esult Performing Organization Address [facility] Co de Phone Number [facility] [address] [address] * (ABNORMAL) DRUGS OF ABUSE - URINE (07/09/2017 9:36 AM CDT) Amphetamines - Urine Negative Negative 07/09/2017 1:57 PM CDT [facility] Comment: Test cut-off: 1000 ng/mL for d-methamphetamine. Benzodiazepines - Urine Negative Negative 07/09/2017 1:57 PM CDT [facility] Comment: Test cut-off: ??100 ng/mL Cocaine - Urine Negative Negative 07/09/2017 1:57 PM CDT [facility] Comment: Test cut-off: ??300 ng/mL Opiates - Urine Negative Negative 07/09/2017 1:57 PM CDT [facility] Comment: Test cut-off: ??300 ng/mL for morphine Oxycodone - Urine Presumptive Positive(A) Negative 07/09/2017 1:57 PM CDT [facility] Comment: Test cut-off: ??300 ng/mL Amphetamines assay cross-reacts well with amphetamine and methamphetamine, as well as the residential designer amphetamines MDMA ( Ecstasy ), MDA, [...] 75,000 ng/mL). Please see Laboratory Services Handbook ([email or web address].[email or web address]/path_handbook.[email or web address].html) for more detailed information on assay cross-reactivity. Drug of abuse screening tests are to be used for medical purposes only and not for non-medical purposes (e.g., employee, bradley linebacker crewmember, or forensic testing). Urine specimen (specimen) 07/09/2017 9:36 AM CDT 07/09/2017 9:52 AM CDT Coco Leos PA-C RANDOM URINE Final Result [facility] [address] [place] [address] documented in this encounter Visit Diagnoses Diagnosis [...] documented as of this encounter Care Teams Newspaper Journalist Relationship Specialty Start Date End Date Coco Leos PA-C [address] [place] [address] PCP - General Physician Editor Book 02/17/17 12/15/22 documented as of this encounter
--- OUTSIDE RECORDS SUMMARY | 2024-11-23 10:38 | XMS_ITS | Encounter Summary ---
Author Organization [facility] Care Address [address] [place] [address] Phone Care Team Providers Care Rotor Casting Machine Setup Operator Name Role Phone Coco Leos PA-C Primary Care Provider [phone] Provider, No-Primary Care Primary Care Provider Unavailable Encounter Details Date Type Department Care Team (Late st Contact Info) Description 04/27/2017 Pharmacy Visit [facility] [address] [place] [phone] Social History Tobacco Use Types Packs/Day [...] documented as of this encounter Care Teams Rotor Casting Machine Setup Operator Relationship Specialty Start Date End Date Coco Leos PA-C [address] [place], [place] [phone] PCP - General Physician Sales Operations 02/17/17 12/15/22 Provider, No-Primary Care [place] PCP - General 12/16/22 documented as of this encounter
--- OUTSIDE RECORDS SUMMARY | 2024-11-23 10:38 | XMS_ITS | Encounter Summary ---
Author Organization [facility] Care Address [address] [place] [address] Phone Care Team Providers Care Wet Crown Blocking Operator Name Role Phone Coco Leos PA-C Primary Care Provider [phone] Reason for Visit * Reason Onset Date Comments Appointment Info 03/22/2017 Encounter Details Date Type Department Care Team (Late st Contact Info) Description 03/22/2017 Telephone [place] [facility] - Procedure Unit [address] [place] [address] Jacy Kim LPN [address] [place], [place] [phone] Social History Tobacco Use Types Packs/Day Years [...] Score: 0 09/30/20 16 3:26 PM DIRECTOR OF EVENT SALES documented as of this encounter Care Teams Wet Crown Blocking Operator Relationship Specialty Start Date End Date Coco Leos PA-C [address] [place], [place] [phone] PCP - General Physician Fuse Coiler 02/17/17 12/15/22 documented as of this encounter
--- OUTSIDE RECORDS SUMMARY | 2024-11-23 10:38 | XMS_ITS | Encounter Summary ---
Author Organization [facility] Care Address [address] [place] [address] Phone Care Team Providers Care Business Attorney Name Role Phone Coco Leos PA-C Primary Care Provider [phone] Provider, No-Primary Care Primary Care Provider Unavailable Encounter Details Date Type Department Care Team (Late st Contact Info) Description 05/13/2017 Pharmacy Visit [facility] [address] [place] [phone] Social History Tobacco Use Types Packs/Day [...] as of this encounter Care Teams Business Attorney Relationship Specialty Start Date End Date Coco Leos PA-C [address] [place], [place] [phone] PCP - General Physician Rn Paralegal 02/17/17 12/15/22 Provider, No-Primary Care [place] PCP - General 12/16/22 documented as of this encounter
--- OUTSIDE RECORDS SUMMARY | 2024-11-23 10:38 | XMS_ITS | Encounter Summary ---
Author Organization [facility] Care Address [address] [place] [address] Phone Care Team Providers Care Outreach Specialist Name Role Phone Coco Leos PA-C Primary Care Provider [phone] Reason for Visit * Reason Comments Patient [...] [facility] COLONOSCOPY PROCEDURE Coco Leos PA-C [address] [place] [address] Phone: tel: fax: [place] - [facility] - Procedure Unit [address] [place] [address] Phone: tel: fax: Referral ID Status Reason Start Date Expiration Date Visits Re quested Visits Authorized [id number] Closed 04/08/2017 08/06/2017 1 1 Encounter Details Date Type Department Care Team ([facility] Contact Info) Description 05/03/2017 8:00 AM CDT Office Visit [place] - [facility] - Procedure Unit [address] [place] [phone] Yana Sweeney MD [address] [place] [address] Social History Tobacco Use Types [...] on weekends or holidays, call the Hospital head mva reactor operator at and ask to have the GI Forest Fire Lookout station repairer paged. OR 24 hours a day call [...] over 2 days) Yana Barrera MD Clinical Carpenter Prototype Department of Internal Medicine Division of Gastroenterology and Hepatology [address] [place] [address] Fax [email or web address] Addendum after Pathology Evaluation: 05/11/2017 10:40 AM Pathology: 3-10 tubular adenomas Repeat colonoscopy: Based on these results, I recommend a repeat colonoscopy in 1 year. Results disclosed by: Mail Results for orders placed or performed in visit on 05/03/17 SURGICAL PATHOLOGY EXAM Result Value Ref Range Case Report Surgical Pathology Case: [id number] Authorizing Provider: Yana Sweeney MD Collected: 05/03/2017 [...] formalin, in a container labeled Edilberto Hawley, [facility], and DESCENDING COLON POLYP , [...] Risks: Colorectal Adenoma History: Personal History: [facility] Consent for Operation or [...] over 2 days) Yana Barrera MD Clinical Carpenter Prototype Department of Internal Medicine Division of Gastroenterology and Hepatology [address] [place] [address] Fax [email or web address] Addendum after Pathology Evaluation: 05/11/2017 10:40 AM Pathology: 3-10 tubular adenomas Repeat colonoscopy: Based on these results, I recommend a repeat colonoscopy in 1 year. Results disclosed by: Mail Results for orders placed or performed in visit on 05/03/17 SURGICAL PATHOLOGY EXAM Result Value Ref Range Case Report ?Surgical Pathology ?Case: [id number] ? Authorizing Provider: ??Yana Sweeney MD ? [...] AM CDT) Case Report Surgical Pathology ?Case: [id number] ? Authorizing Provider: ??Yana Sweeney MD ? Collected: ? 05/03/2017 09:38 AM ? Ordering Location: ? [facility] - Procedure Unit ? Received: ?05/03/2017 02:12 PM ? Pathologist: ? Ishmael Tirado MD ? Specimen: ?Colon, specify, DESCENDING COLON POLYP ? 05/10/2017 6:[address] [facility] Diagnosis Descending colon, biopsy: Fragments of tubular adenoma(s). I have personally reviewed this case and edited the report as necessary. 05/10/2017 6:[address] [facility] Clinical Information Polyp surveillance Jar 1: descending colon polyps 05/10/2017 6:[address] [facility] Gross Description A. Received in formalin, in a container labeled Edilberto Hawley, [facility], and DESCENDING COLON POLYP , are four coyne-pink soft tissue fragments, 0.2 to 0.3 cm in greatest dimension. Submitted in toto in A1. BNS/rls 05/10/2017 6:[address] [facility] Microscopic Description Microscopic examination performed. Performed by: Ishmael Tirado M.D. I have personally reviewed this case and edited the report as necessary. Ishmael Tirado MD 05/10/2017 6:[address] [facility] Tissue specimen (specimen) COLON STRUCTURE / Unknown 05/03/2017 9:38 AM CDT 05/03/2017 2:12 PM CDT [facility] PATHOLOGY/CYTOLOGY ORDERABLES F inal Result [facility] [address] [place] [address] documented in this encounter Visit Diagnoses Diagnosis [...] documented as of this encounter Care Teams Outreach Specialist Relationship Specialty Start Date End Date Coco Leos PA-C [address] [place] [address] PCP - General Physician Leather Goods I Assembler 02/17/17 12/15/22 documented as of this encounter
--- OUTSIDE RECORDS SUMMARY | 2024-11-23 10:38 | XMS_ITS | Encounter Summary ---
Author Organization [facility] Care Address [address] [place] [address] Phone Care Team Providers Care Circuits Engineer Name Role Phone Coco Leos PA-C Primary Care Provider [phone] Provider, No-Primary Care Primary Care Provider Unavailable Encounter Details Date Type Department Care Team (Late st Contact Info) Description 03/15/2017 Pharmacy Visit [facility] [address] [place] [phone] Social History Tobacco Use Types Packs/Day [...] Total Score: 0 09/30/20 16 3:26 PM SPECIAL EDUCATION ASSOCIATE documented as of this encounter Care Teams Circuits Engineer Relationship Specialty Start Date End Date Coco Leos PA-C [address] [place], [place] [phone] PCP - General Physician Concrete Floor Installer 02/17/17 12/15/22 Provider, No-Primary Care [place] PCP - General 12/16/22 documented as of this encounter
--- OUTSIDE RECORDS SUMMARY | 2024-11-23 10:38 | XMS_ITS | Encounter Summary ---
Author Organization [facility] Care Address [address] [place] [address] Phone Care Team Providers Care Golf Club Facer Name Role Phone Coco Leos PA-C Primary Care Provider [phone] Reason for Visit * Reason Onset Date Comments Med Request 05/12/2017 Encounter Details Date Type Department Care Team (Late st Contact Info) Description 05/12/2017 Refill [facility] [address] [place] [phone] Nikko Han, [facility] [address] [place] [address] Social History Tobacco Use Types [...] CMA * Telephone Encounter - Nikko Han, [facility] - 05/12/2017 7:17 PM CDT IR Pain [...] There are no unexpected entries on the PAID INTERN and refill frequency is every 29-30 days. Opioid agreement signed 01/12/17 with Coco Leos pac. Urine Drug Screen: 01/12/17 (+) OC and metabolites as expected. Respiratory Depression Risk Score 3; long acting opioid prescribed, emergency visit within last 6 months and history of opioid abuse Morphine equivalent dose is 105 mg/day. lead caregiver is available. Emergency intranasal naloxoneis warranted at this time. Prescriptions pended for Dr. Leos, last visit: 04/09; return visit: 07/09. Please send orders to [facility] pharmacy for pick-up. Thank you, Zain Han [facility] pharmacy documented in this encounter Plan of Treatment Not on file documented as of this encounter Visit Diagnoses Diagnosis Other chronic pain- Primary Low back pain with radiation, right documented in this encounter Additional Health Concerns Assessment Noted Time PHQ-2 Depression Total Score: 0 04/09/20 17 2:55 PM CDT documented as of this encounter Care Teams Golf Club Facer Relationship Specialty Start Date End Date Coco Leos PA-C [address] [place] [address] PCP - General Physician Loading Unit Tool Setter 02/17/17 12/15/22 documented as of this encounter
--- OUTSIDE RECORDS SUMMARY | 2024-11-23 10:38 | XMS_ITS | Encounter Summary ---
Author Organization [facility] Care Address [address] [place] [address] Phone Care Team Providers Care Kiln Pusher Name Role Phone Coco Leos PA-C Primary Care Provider [phone] Reason for Visit * Reason Comments Patient Reported Reason For Visit Encounter Details Date Type Department Care Team (Late st Contact Info) Description 04/09/2017 5:10 PM CDT Lab Only [facility] - [facility] [address] [place] [phone] Coco Leos PA-C [address] [place], [place] [phone] Lab Services, [place] Social History Tobacco Use [...] documented as of this encounter Care Teams Kiln Pusher Relationship Specialty Start Date End Date Coco Leos PA-C [address] [place], [place] [phone] PCP - General Physician Groundwater Monitoring Technician 02/17/17 12/15/22 documented as of this encounter
--- OUTSIDE RECORDS SUMMARY | 2024-11-23 10:38 | XMS_ITS | Encounter Summary ---
Author Organization [facility] Care Address [address] [place] [address] Phone Care Team Providers Care Rack Loader Name Role Phone Coco Leos PA-C Primary Care Provider [phone] Reason for Visit * Reason Comments Patient Reported Reason For Visit WC MARIA DEL CARMEN K, EVAL & TREAT, FALL ONTO BACK, L2, L3, L4 TRANSVERSE PROCESS FRACTURES, PRIOR L5 - S1 FORAMINAL NARROWING, DOI 04/16/2017 Encounter Details Date Type Department Care Team (Late st Contact Info) Description 05/19/2017 8:45 AM CDT Office Visit [facility] Orthopedics - Work Injury Recovery [address] [place] [address] Floyd Fowler MD [address] [place], [place] [phone] Social History Tobacco Use Types Packs/Day Years [...] 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 He describes hitting his back on the way down, and landing on his head. He was seen at [facility] in [place]. CT of the lumbar spine on 04/16/2017 was reported as mildly displaced acute fractures of the right L1, L2, and L3 transverse processes. No vertebral body fractures are identified. Multilevel degenerative changes. No critical spinal canal narrowing. Multilevel foraminal narrowing is seen, most pronounced on the right at the L5-S1 where it islikely severe. [facility] provided a custom back brace. Xrays on 04/19/2017 were reported as new superior endplate compression deformity at L3, compared to prior MRI, similar mild retrolisthesis of L2 on L3. He has a history of back pain with right lower extremity radicular pain and had epidural steroid injections that were very helpful. He was seen at [facility] emergency department on 07/25/2016 with a three-day history of right sided thoracic back pain, worse with movements and deep breaths, first noted after hitting his back on a coat rack at work when going from working on his knees to standing. He established care with [facility] internal medicine and receives Oxycodone/acetaminophen 10/325 one [...] he had fallen on his buttocks at [employer] the previous day with increased pain to hislower back. Mr. Hawley was initially seen on 05/12/2017 for back pain. He reports after he left the clinic, hehad increased back pain such that he went down on one knee in the parking garage. He reported passed out while driving home. He returned to [facility] emergency department where he received IV hydrmorphone, [...] scalp. He reports he will see the [facility] physicians immediately after he leaves this clinic visit, and they will address his passing out episodes. Active Problem List Diagnosis Code ??? Health care maintenance Z00.00 ??? Chronic pain G89.29 ??? History of left hip replacement Z96.642 ??? History of repair of left rotator cuff Z98.890 ??? Encounter related to worker's compensation claim 04/16/2017 Back Z02.6 ??? residential current use of opiate analgesic Z79.891 ??? [...] in 3-4 weeks. Staff Involved Staff and PA/REHABILITATION AIDE/SCHEDULER/PNP/NM (team effort NPP & Faculty documentation) Staff [...] Fowler MD Department of Orthopedics & Rehabilitation [phone] GEORGE Ayers [facility] Department of Orthopaedics Work [facility] Recovery Center documented in this encounter Miscellaneous Notes * Communication Body - Mariam Evans - 05/19/2017 8:45 AM CDT We saw Edilberto Hawley in Orthopaedics at the [facility] on 05/19/17. Enclosed is a copy of our notes. If you have any questions, please call my office. Sincerely, Floyd Fowler MD Department of Orthopedics & Rehabilitation [phone] documented in this encounter Plan of Treatment [...] documented as of this encounter Care Teams Rack Loader Relationship Specialty Start Date End Date Coco Leos PA-C [address] [place] [address] PCP - General Physician Earth Auger Operator 02/17/17 12/15/22 documented as of this encounter
--- OUTSIDE RECORDS SUMMARY | 2024-11-23 10:38 | XMS_ITS | Encounter Summary ---
Author Organization [facility] Care Address [address] [place] [address] Phone Care Team Providers Care Speech Language Pathologist Travel Name Role Phone Provider, No-Primary Care Primary Care Provider Unavailable Coco Leos PA-C Primary Care Provider [phone] Provider, No-Primary Care Primary Care Provider Unavailable Encounter Details Date Type Department Care Team (Late st Contact Info) Description 02/09/2017 Pharmacy Visit [facility] [address] [place] [phone] Social History Tobacco Use Types Packs/Day [...] Total Score: 0 09/30/20 16 3:26 PM LINING SETTER documented as of this encounter Care Teams Speech Language Pathologist Travel Relationship Specialty Start Date End Date Provider, No-Primary Care [place] PCP - General 01/12/17 02/16/17 Coco Leos PA-C [address] [place], [place] [phone] PCP - General Physician Credit Union Examiner 02/17/17 12/15/22 Provider, No-Primary Care [place] PCP - General 12/16/22 documented as of this encounter
--- OUTSIDE RECORDS SUMMARY | 2024-11-23 10:38 | XMS_ITS | Encounter Summary ---
Author Organization [facility] Care Address [address] [place] [address] Phone Care Team Providers Care Insurance Account Representative Name Role Phone Stephanie Giron PA-C Primary Care Provider [phone] Reason for Visit * Reason Comments Fall Pain LEFT Hip Pain LEFT Encounter Details Date Type Department Care Team (Late st Contact Info) Description 04/09/2017 3:00 PM CDT Office Visit [facility] [address] [facility] [address] [place] [phone] [place] [address] [place], [place] [phone] Stephanie Giron PA-C [address] [place], [place] [phone] Social History Tobacco Use Types Packs/Day Years [...] Body Mass Index 25.1 01/22/2017 3:28 PM DUST MIXER documented in this encounter Patient Instructions * [...] presents to the Department of Family Medicine [facility] for pain management He has been followed by providers in [facility] as he is from that area. He and his have beenliving in an in [facility] [place] since February 2016 as he is working as a member of the [employer]. He is now working in [employer] . He is doing a lot of activity at work, according to his phone he is walking 38 K steps/day. He is currently working for [employer], now in [employer] doing a lot of lifting, up and down ladders. He does a lot of lifting and pulling. He reports that his mental health is improved with returning to work. He feels he gets around better as he has lost weight with return to work as well. However he had a fall in [employer] about a month ago and He has been getting headaches more frequently. He has PMH of chronic pain, back, shoulders, hands, wrists. He has had numerous surgeries in the past. He is on chronic narcotic regimen, has been on current regimen for a few years. Started on this by previous PCP in [place]. He is now receiving medications through us and utilizing the [facility]. He reports that he is on [...] until recently. Pt had a fall at [employer] about a month ago. Fell onto left [...] History Narrative Mr. 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 URINALYSIS WITH REFLEX CULTURE Value Value Units Color, Urine Yellow Straw, Pale Yellow, Yellow, Clear, None Clarity, Urine Clear Clear pH, Urine 5.0 <9.0 Spec [place], Urine 1.025 >1.000-<1.030 Glucose, Urine Negative Negative [...] type I85.00 456.1 US RUQ ANDLIVER DOPPLER ([id number]) HEPATITIS C ANTIBODY HEPATITIS B SURFACE ANTIGEN [...] interval since last visit he fell at [place] and now has pain in L wrist [...] Results * US RUQ AND LIVER DOPPLER ([id number]) (04/23/2017 8:30 AM CDT) Anatomical Region Laterality Modality Ultrasound 04/23/2017 8:13 AM CDT Impressions 04/23/2017 12:21 PM CDT Impression: 1. Fibrofatty infiltration of the liver. 2. No evidence of portal hypertension. --- Final --- Narrative 04/23/2017 12:21 PM CDT [facility] Department of Radiology ?? Ultrasound Division ? [address] ?? [place] [address] ULTRASOUND REPORT NAME: ?EDILBERTO DURAND Date of Service: 04/23/2017 MRN NO.: ? [id number] ? Review Date: ? 04/23/2017 Patient's : [...] Procedure Note Yassine Gale MD - 04/23/2017 [facility] Department of Radiology Ultrasound Division [address] [place] [address] ULTRASOUND REPORT NAME: EDILBERTO DURAND Date of Service: 04/23/2017 MRN NO.: [id number] Review Date: 04/23/2017 Patient's : 1955 Resident/Tech: [...] total left hip arthroplasty. Procedure Note Ministerio Goer MD - 04/19/2017 Procedures: L SPINE AP [...] RANDOM URINE Final Result [facility] [address] [address] * URINALYSIS WITH REFLEX CULTURE (04/09/2017 5:05 PM CDT) Color - Urine Yellow Straw, Pale Yellow, Yellow, Clear, None 04/09/2017 5:22 PM CDT [facility] Clarity - Urine Clear Clear 04/09/2017 5:22 PM CDT [facility] pH - Urine 5.0 <9.0 04/09/2017 5:22 PM CDT [facility] Specific [place] - Urine 1.025 >1.000-<1.03 0 04/09/2017 5:22 [...] RANDOM URINE Final Result Performing Organization Address [facility]/ZIP Co de Phone Number [facility] [address] [address] * (ABNORMAL) GLUCOSE (04/09/2017 5:05 PM CDT) [...] ORDERABLES Final R esult [facility] [address] [address] * HEPATITIS B SURFACE ANTIGEN (04/09/2017 5:05 PM CDT) Hepatitis B Surface Antigen Negative Negative 04/09/2017 9:42 PM CDT [facility] Blood specimen (specimen) Venipuncture / Unknown 04/09/2017 5:05 PM CDT 04/09/2017 5:17 PM CDT us Stephanie Giron PA-C CHEMISTRY ORDERABLES Final R esult Performing Organization Address City/[facility]/ZIP Co de Phone Number [facility] [address] [place] [address] * HEPATITIS C ANTIBODY (04/09/2017 5:05 PM CDT) Hepatitis C Antibody Negative Negative 04/09/2017 9:42 PM CDT [facility] Blood specimen (specimen) Venipuncture / Unknown 04/09/2017 5:05 PM CDT 04/09/2017 5:17 PM CDT Stephanie Giron PA-C CHEMISTRY ORDERABLES Final R esult Performing Organization Address City/[facility] Co de Phone Number [facility] [address] [place] [address] documented in this encounter Visit Diagnoses Diagnosis [...] as of this encounter Care Teams Insurance Account Representative Relationship Specialty Start Date End Date Stephanie Giron PA-C [address] [place] [address] PCP - General Physician Reliability Technologist 02/17/17 12/15/22 documented as of this encounter
--- OUTSIDE RECORDS SUMMARY | 2024-11-23 10:38 | XMS_ITS | Encounter Summary ---
Author Organization [facility] Care Address [address] [place] [address] Phone Care Team Providers Care Safety Intern Name Role Phone Coco Leos PA-C Primary Care Provider [phone] Reason for Visit * Reason Comments Patient [...] DOI 04/16/2017 [address] [place] [address] Phone: tel: fax: Floyd Fowler MD [address] [place] [address] Phone: tel: fax: Referral ID Status Reason Start Date Expiration Date Visits Re quested Visits Authorized [id number] Closed 04/16/2017 1 1 Encounter Details Date Type Department Care Team (Late st Contact Info) Description 05/12/2017 3:30 PM CDT Office Visit [facility] Orthopedics - Work Injury Recovery [address] [place] [phone] Floyd Fowler MD [address] [place], [place] [phone] Social History Tobacco Use Types Packs/Day Years [...] 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 He describes hitting his back on the way down, and landing on his head. He was seen at [facility] in [place]. CT of the lumbar spine on 04/16/2017 was reported as mildly displaced acute fractures of the right L1, L2, and L3 transverse processes. No vertebral body fractures are identified. Multilevel degenerative changes. No critical spinal canal narrowing. Multilevel foraminal narrowing is seen, most pronounced on the right at the L5-S1 where it islikely severe. [facility] provided a custom back brace. Xrays on 04/19/2017 were reported as new superior endplate compression deformity at L3, compared to prior MRI, similar mild retrolisthesis of L2 on L3. He has a history of back pain with right lower extremity radicular pain and had epidural steroid injections that were very helpful. He was seen at [facility] emergency department on 07/25/2016 with a three-day history of right sided thoracic back pain, worse with movements and deep breaths, first noted after hitting his back on a coat rack at work when going from working on his knees to standing. He established care with [facility] internal medicine and receives Oxycodone/acetaminophen [...] he had fallen on his buttocks at [employer] the previous day with increased pain to [...] USP current use of opiate analgesic Z79.891 No [...] back pain. Encounter Diagnoses ICD-10-CM ICD-9-CM 1. technician terminal and repeater current use of opiate analgesic Z79.891 V58.69 [...] Fowler as needed. Staff Involved Staff and PA/HEAD OF MARKETING/PNP/NM (team effort NPP & Faculty documentation) Staff [...] problems in fact his MRI from the [place] from January of this year. He also [...] Fowler MD Department of Orthopedics & Rehabilitation [phone] GEORGE Ayers [facility] Department of Orthopaedics Work Injury Recovery Center documented in this encounter Miscellaneous Notes * Communication Body - Mariam Evans - 05/12/2017 3:30 PM CDT We saw Edilberto Hawley in Orthopaedics at the [facility] on 05/12/17. Enclosed is a copy of our notes. If you have any questions, please call my office. Sincerely, Floyd Fowler MD Department of Orthopedics & Rehabilitation [phone] documented in this encounter Plan of Treatment [...] performed at 1423 hours on 04/16/2017 at [facility]. 1,034 images are provided and interpreted [...] performed at 1423 hours on 04/16/2017 at [facility]. 1,034 images are provided and interpreted [...] documented in this encounter Visit Diagnoses Diagnosis USP current use of opiate analgesic- Primary Encounter [...] as of this encounter Care Teams Safety Intern Relationship Specialty Start Date End Date Coco Leos PA-C [address] [place] [address] PCP - General Physician City Letter Carrier 02/17/17 12/15/22 documented as of this encounter
--- OUTSIDE RECORDS SUMMARY | 2024-11-23 10:38 | XMS_ITS | Encounter Summary ---
Author Organization [facility] Care Address [address] [place] [address] Phone Care Team Providers Care Photovoltaic Solar Cell Designer Name Role Phone Coco Leos PA-C Primary Care Provider [phone] Reason for Visit * Reason Comments Patient Reported Reason For Visit WC RTN TRANSVERS PROCESS FRACTURES Encounter Details Date Type Department Care Team (Late st Contact Info) Description 06/09/2017 8:30 AM CDT Office Visit [facility] Orthopedic - Work Injury Recovery [address] [place] [phone] Floyd Fowler MD [address] [place], [place] [phone] Social History Tobacco Use Types Packs/Day Years [...] to worker's compensation claim 04/16/2017 Back ??? penitentiary current use of opiate analgesic ??? 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
--- OUTSIDE RECORDS SUMMARY | 2024-11-23 10:38 | XMS_ITS | Encounter Summary ---
Author Organization [facility] Care Address [address] [place] [address] Phone Care Team Providers Care Russian History Professor Name Role Phone Coco Leos PA-C Primary Care Provider [phone] Provider, No-Primary Care Primary Care Provider Unavailable Encounter Details Date Type Department Care Team (Late st Contact Info) Description 07/09/2017 Pharmacy Visit [facility] [address] [place] [phone] Social History Tobacco Use Types Packs/Day [...] documented as of this encounter Care Teams Russian History Professor Relationship Specialty Start Date End Date Coco Leos PA-C [address] [place], [place] [phone] PCP - General Physician Consulting Property Manager 02/17/17 12/15/22 Provider, No-Primary Care [place] PCP - General 12/16/22 documented as of this encounter
--- OUTSIDE RECORDS SUMMARY | 2024-11-23 10:38 | XMS_ITS | Encounter Summary ---
Author Organization [facility] Care Address [address] [place] [address] Phone Care Team Providers Care Rebeamer Name Role Phone Coco Leos PA-C Primary Care Provider [phone] Reason for Visit * Reason Comments Patient Reported Reason For Visit Encounter Details Date Type Department Care Team (Late st Contact Info) Description 07/09/2017 9:40 AM CDT Lab Only [address] [address] [place] [address] [place], [place] [phone] Social History Tobacco Use Types Packs/Day Years [...] 25-hydroxyvitamin D3 and 25-hydroxyvitamin D2. Endocrine Society, [place] of Medicine (IOM), and World Health Organization [...] ORDERABLES Final R esult [facility] [address] [address] documented in this encounter Visit Diagnoses Diagnosis Closed fracture of lumbar vertebra with routine healing, unspecified fracture morphology, unspecified lumbar vertebral level, subsequent encounter documented in this encounter Additional Health Concerns Assessment Noted Time PHQ-2 Depression Total Score: 0 04/09/20 17 2:55 PM CDT documented as of this encounter Care Teams Rebeamer Relationship Specialty Start Date End Date Coco Leos PA-C [address] [place] [address] PCP - General Physician Ob/Gyn Doctor 02/17/17 12/15/22 documented as of this encounter
--- OUTSIDE RECORDS SUMMARY | 2024-11-23 10:38 | XMS_ITS | Encounter Summary ---
Author Organization [facility] Care Address [address] [place] [address] Phone Care Team Providers Care Communications Engineer Name Role Phone Coco Leos PA-C Primary Care Provider [phone] Reason for Visit * Reason Comments Patient Reported Reason For Visit Encounter Details Date Type Department Care Team (Latest Contact Info) Description 05/12/2017 4:36 PM CDT - 05/12/2017 6:41 PM CDT Hospital Encounter [facility] - Radiology - External [address] [place] [phone] Floyd Fowler MD [address] [place] [address] Discharge Disposition: Home or Self Care Social [...] needed. 35.44 g 11 01/12/2017 5:22 PM SUSPECT ARTIST SUPERVISOR 01/12/2017 omeprazole 20 mg enteric coated capsule [...] bedtime. 30 capsule 11 01/12/2017 5:22 PM SUSPECT ARTIST SUPERVISOR 01/12/2017 7 naloxone 1 mg/mL injection syringe [...] of use: As long as needed Video/Handout: [email or web address] Pain Management - Exercise Pain Management No Coco Leos PA-C Note: Exercise: General Aerobic ?? Duration: 3 to 5 days per week for 20 minutes per day ?? Intensity: Moderate Strengthening: neither Back nor General (for widespread pain) nor Shoulder ?? Intensity: Moderate ?? Duration: 2 to 4 days per week ?? Instructions: See attached documentation for details Video/Handout: [email or web address] documented as of this encounter Procedures Procedure [...] documented as of this encounter Care Teams Communications Engineer Relationship Specialty Start Date End Date Coco Leos PA-C [address] [place] [address] PCP - General Physician Business Analyst Manager 02/17/17 12/15/22 documented as of this encounter
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
--- OUTSIDE RECORDS SUMMARY | 2024-11-23 10:38 | XMS_ITS | Encounter Summary ---
Author Organization [facility] Care Address [address] [place] [address] Phone Care Team Providers Care Commissions Analyst Name Role Phone Provider, No-Primary Care Primary Care Provider Unavailable Reason for Visit * Reason Onset Date Comments Medication Refill 02/09/2017 Encounter Details Date Type Department Care Team (Late st Contact Info) Description 02/09/2017 Refill [facility] [address] [address] [place] [phone] Maxine Pope [address] [place], [place] [phone] Social History Tobacco Use Types Packs/Day Years [...] Visit: 01/12/17 Future Appointments: None Preferred Pharmacy: [facility] Pharmacy Fax #: [phone] [facility] * Telephone Encounter - Maxine Pope RP - 02/09/2017 7:00 PM CDT [facility] Pain Medication Refill Service - Pharmacist's [...] There are no unexpected entries on the LEADLIGHTER and refill frequency is TBD. 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 Opioid agreement signed 01/12/17 with Coco Leos. Urine Drug Screen: 01/12/17 (+)OC & metabolites, as expected. Respiratory Depression Risk Score 1; long acting opioid prescribed Morphine equivalent dose is 105 mg/day. learning technologist is available. Emergency intranasal naloxoneis warranted at this time. Prescriptions pended for Coco Leos, last visit: 01/12; return visit: not scheduled. Please send orders to [facility] pharmacy for pick-up. Thank you, Cristina George, [facility], BCACP documented in this encounter Plan of Treatment Not on file documented as of this encounter Visit Diagnoses Diagnosis Other chronic pain- Primary documented in this encounter Additional Health Concerns Assessment Noted Time PHQ-2 Depression Total Score: 0 09/30/20 16 3:26 PM LINE UP WORKER documented as of this encounter Care Teams Commissions Analyst Relationship Specialty Start Date End Date Provider, No-Primary Care [place] PCP - General 01/12/17 02/16/17 documented as of this encounter
--- OUTSIDE RECORDS SUMMARY | 2024-11-23 10:38 | XMS_ITS | Encounter Summary ---
Author Organization [facility] Care Address [address] [place] [address] Phone Care Team Providers Care Oral And Maxillofacial Surgery Resident Name Role Phone Coco Leos PA-C Primary Care Provider [phone] Reason for Visit * Reason Onset Date Comments Fall 04/19/2017 Encounter Details Date Type Department Care Team (Late st Contact Info) Description 04/19/2017 Telephone [facility] [address] [facility] [address] [place] [address] Coco Leos PA-C [address] [place] [address] Social History Tobacco Use Types [...] in his head. Will be going to [facility] today to be fit for custom back brace. 2) Told the ER doctor he had pain medication at home prescribed by you, now is taking that more frequently and is running out. Last written 04-09-17. 3) Advised to contact [facility] Comp doctor to have them prescribe the pain medication. [facility] doctor is in [place], [place]. He would have to drive there to be seen, unsure if he would be able to tolerate the long ride there. 4) [facility] does not accept his work comp insurance. [...] the information to have Edilberto call the [facility] pharmacy when he is close to being out of medication. Verbalizes understanding. Ruth Mackenzie RN documented in this encounter Plan of Treatment Not on file documented as of this encounter Visit Diagnoses Not on filedocumented in this encounter Additional Health Concerns Assessment Noted Time PHQ-2 Depression Total Score: 0 04/09/20 17 2:55 PM CDT documented as of this encounter Care Teams Oral And Maxillofacial Surgery Resident Relationship Specialty Start Date End Date Coco Leos PA-C [address] [place] [address] PCP - General Physician Manager Assembly 02/17/17 12/15/22 documented as of this encounter
--- OUTSIDE RECORDS SUMMARY | 2024-11-23 10:38 | XMS_ITS | Encounter Summary ---
Author Organization [facility] Care Address [address] [place] [address] Phone Care Team Providers Care Pig Machine Supervisor Name Role Phone Coco Leos PA-C Primary Care Provider [phone] Reason for Visit * Reason Comments Patient Reported Reason For Visit Patient Reported Reason For Visit Encounter Details Date Type Department Care Team (Latest Contact Info) Description 04/19/2017 11:51 AM CDT - 04/19/2017 11:52 AM CDT Hospital Encounter [place] - [facility] - Radiology [address] [phone] Carlos Enrique Segal MD [address] [place] [address] Discharge Disposition: Home or Self [...] needed. 35.44 g 11 01/12/2017 5:22 PM RODDING ANODE WORKER 01/12/2017 omeprazole 20 mg enteric coated capsule [...] bedtime. 30 capsule 11 01/12/2017 5:22 PM RODDING ANODE WORKER 01/12/2017 7 naloxone 1 mg/mL injection syringe [...] documented as of this encounter Care Teams Pig Machine Supervisor Relationship Specialty Start Date End Date Coco Leos PA-C [address] [place] [address] PCP - General Physician Interior Design Assistant 02/17/17 12/15/22 documented as of this encounter
--- OUTSIDE RECORDS SUMMARY | 2024-11-23 10:38 | XMS_ITS | Encounter Summary ---
Author Organization [facility] Care Address [address] [place] [address] Phone Care Team Providers Care Stem Frazer Name Role Phone Coco Leos PA-C Primary Care Provider [phone] Provider, No-Primary Care Primary Care Provider Unavailable Encounter Details Date Type Department Care Team (Late st Contact Info) Description 06/11/2017 Pharmacy Visit RX [facility] [address] [place] [phone] Social History Tobacco Use Types Packs/Day [...] documented as of this encounter Care Teams Stem Frazer Relationship Specialty Start Date End Date Coco Leos PA-C [address] [place], [place] [phone] PCP - General Physician Lithostripper 02/17/17 12/15/22 Provider, No-Primary Care [place] PCP - General 12/16/22 documented as of this encounter
--- OUTSIDE RECORDS SUMMARY | 2024-11-23 10:38 | XMS_ITS | Encounter Summary ---
Author Organization [facility] Care Address [address] [place] [address] Phone Care Team Providers Care Supervisor Covering And Lining Name Role Phone Provider, No-Primary Care Primary Care Provider Unavailable Coco Leos PA-C Primary Care Provider [phone] Provider, No-Primary Care Primary Care Provider Unavailable Encounter Details Date Type Department Care Team (Late st Contact Info) Description 02/10/2017 Pharmacy Visit RX [facility] [address] [place] [phone] Social History Tobacco Use Types Packs/Day [...] Total Score: 0 09/30/20 16 3:26 PM MUSIC THERAPY TEACHER documented as of this encounter Care Teams Supervisor Covering And Lining Relationship Specialty Start Date End Date Provider, No-Primary Care [place] PCP - General 01/12/17 02/16/17 Coco Leos PA-C [address] [place], [place] [phone] PCP - General Physician Financial Services Associate 02/17/17 12/15/22 Provider, No-Primary Care [place] PCP - General 12/16/22 documented as of this encounter
--- OUTSIDE RECORDS SUMMARY | 2024-11-23 10:38 | XMS_ITS | Encounter Summary ---
Author Organization [facility] Care Address [address] [place] [address] Phone Care Team Providers Care Veterans Employment Representative Name Role Phone Coco Leos PA-C Primary Care Provider [phone] Provider, No-Primary Care Primary Care Provider Unavailable Encounter Details Date Type Department Care Team (Late st Contact Info) Description 04/19/2017 Ancillary Orders [facility] Medicine [address] [address] [place] [phone] Coco Leos PA-C [address] [place] [address] Social History Tobacco Use Types [...] documented as of this encounter Care Teams Veterans Employment Representative Relationship Specialty Start Date End Date Coco Leos PA-C [address] [place] [address] PCP - General Physician Mysql Dba 02/17/17 12/15/22 Provider, No-Primary Care [place] PCP - General 12/16/22 documented as of this encounter
--- OUTSIDE RECORDS SUMMARY | 2024-11-23 10:38 | XMS_ITS | Encounter Summary ---
Author Organization [facility] Care Address [address] [place] [address] Phone Care Team Providers Care Typesetters Printer Name Role Phone Provider, No-Primary Care Primary Care Provider Unavailable Coco Leos PA-C Primary Care Provider [phone] Provider, No-Primary Care Primary Care Provider Unavailable Encounter Details Date Type Department Care Team (Late st Contact Info) Description 02/11/[address] [facility] [address] [place] [phone] Social History Tobacco Use Types Packs/Day [...] Total Score: 0 09/30/20 16 3:26 PM RECEIVABLE MANAGER documented as of this encounter Care Teams Typesetters Printer Relationship Specialty Start Date End Date Provider, No-Primary Care [place] PCP - General 01/12/17 02/16/17 Coco Leos PA-C [address] [place], [place] [phone] PCP - General Physician Associate Director Qa 02/17/17 12/15/22 Provider, No-Primary Care [place] PCP - General 12/16/22 documented as of this encounter
--- OUTSIDE RECORDS SUMMARY | 2024-11-23 10:38 | XMS_ITS | Encounter Summary ---
Author Organization [facility] Care Address [address] [place] [address] Phone Care Team Providers Care Leaflet Distributor Name Role Phone Coco Leos PA-C Primary Care Provider [phone] Reason for Visit * Reason Comments Patient Reported Reason For Visit WC RTN S/P TP FRACTURES OF LUMBAR SPINE Encounter Details Date Type Department Care Team (Late st Contact Info) Description 07/21/2017 2:15 PM CDT Office Visit [facility] [address] [place] [phone] Floyd Fowler MD [address] [place], [place] [phone] Left without seen Social History Tobacco Use [...] documented as of this encounter Care Teams Leaflet Distributor Relationship Specialty Start Date End Date Coco Leos PA-C [address] [place] [address] PCP - General Physician Developmental Education Instructor 02/17/17 12/15/22 documented as of this encounter
--- OUTSIDE RECORDS SUMMARY | 2024-11-23 10:38 | XMS_ITS | Encounter Summary ---
Author Organization [facility] Care Address [address] [place] [address] Phone Care Team Providers Care Manager Retail Name Role Phone Coco Leos PA-C Primary Care Provider [phone] Reason for Visit * Reason Onset Date Comments Loss of Consciousness 05/12/2017 Encounter Details Date Type Department Care Team (Late st Contact Info) Description 05/12/2017 Nurse [facility] Call Center [address] [place] [phone] Gin Miguel RN [address] [place] [address] Social History Tobacco Use Types [...] RN - 05/12/2017 5:35 PM CDT Protocol: [id number] 1. ONSET: How long were you unconscious? [...] Call EMS 911 Now suggested. Edilberto Hawley [phone] called about passing out multiple times today [...] fainted 3 times today Call Back Number: [phone] documented in this encounter Plan of Treatment Not on file documented as of this encounter Visit Diagnoses Not on filedocumented in this encounter Additional Health Concerns Assessment Noted Time PHQ-2 Depression Total Score: 0 04/09/20 17 2:55 PM CDT documented as of this encounter Care Teams Manager Retail Relationship Specialty Start Date End Date Coco Leos PA-C [address] [place] [address] PCP - General Physician Graphic Design Teacher 02/17/17 12/15/22 documented as of this encounter
--- OUTSIDE RECORDS SUMMARY | 2024-11-23 10:38 | XMS_ITS | Encounter Summary ---
Author Organization [facility] Care Address [address] [place] [address] Phone Care Team Providers Care Ballpoint Pens Assembler Name Role Phone Coco Leos PA-C Primary Care Provider [phone] Encounter Details Date Type Department Care Team (Late st Contact Info) Description 05/13/2017 Orders/Notes [facility] - Work Injury Recovery [address] [place] [address] Floyd Fowler MD [address] [place] [address] Social History Tobacco Use Types Packs/Day Years [...] long as needed Video/Handout: [email or web address] Pain Management - Exercise Pain Management No Coco Leos PA-C Note: Exercise: General Aerobic ?? Duration: 3 to 5 days per week for 20 minutes per day ?? Intensity: Moderate Strengthening: neither Back nor General (for widespread pain) nor Shoulder ?? Intensity: Moderate ?? Duration: 2 to 4 days per week ?? Instructions: See attached documentation for details Video/Handout: [email or web address] documented as of this encounter Visit Diagnoses Diagnosis Back pain- Primary Backache, unspecified documented in this encounter Additional Health Concerns Assessment Noted Time PHQ-2 Depression Total Score: 0 04/09/20 17 2:55 PM CDT documented as of this encounter Care Teams Ballpoint Pens Assembler Relationship Specialty Start Date End Date Coco Leos PA-C [address] [place] [address] PCP - General Physician Kaiawhina Kura Kaupapa Maori 02/17/17 12/15/22 documented as of this encounter
--- OUTSIDE RECORDS SUMMARY | 2024-11-23 10:38 | XMS_ITS | Encounter Summary ---
Author Organization [facility] Care Address [address] [place] [address] Phone Care Team Providers Care Watchguard Name Role Phone Coco Leos PA-C Primary Care Provider [phone] Provider, No-Primary Care Primary Care Provider Unavailable Encounter Details Date Type Department Care Team (Late st Contact Info) Description 03/11/2017 Pharmacy Visit RX [facility] [address] [place] [phone] Social History Tobacco Use Types Packs/Day [...] Total Score: 0 09/30/20 16 3:26 PM COMPLIANCE DIRECTOR documented as of this encounter Care Teams Watchguard Relationship Specialty Start Date End Date Coco Leos PA-C [address] [place], [place] [phone] PCP - General Physician Bond Clerk 02/17/17 12/15/22 Provider, No-Primary Care [place] PCP - General 12/16/22 documented as of this encounter
--- OUTSIDE RECORDS SUMMARY | 2024-11-23 10:38 | XMS_ITS | Encounter Summary ---
Author Organization [facility] Care Address [address] [place] [address] Phone Care Team Providers Care Glass Checker Name Role Phone Coco Leos PA-C Primary Care Provider [phone] Reason for Visit * Reason Comments Patient Reported Reason For Visit Patient Reported Reason For Visit Encounter Details Date Type Department Care Team (Latest Contact Info) Description 04/19/2017 11:53 AM CDT - 04/19/2017 11:59 PM CDT Hospital Encounter [place] - [facility] - Radiology [address] [phone] Carlos Enrique Segal MD [address] [place] [address] Discharge Disposition: Home or Self [...] needed. 35.44 g 11 01/12/2017 5:22 PM INDUSTRIAL REHABILITATION CONSULTANT 01/12/2017 omeprazole 20 mg enteric coated capsule [...] bedtime. 30 capsule 11 01/12/2017 5:22 PM INDUSTRIAL REHABILITATION CONSULTANT 01/12/2017 7 naloxone 1 mg/mL injection syringe [...] as of this encounter Care Teams Glass Checker Relationship Specialty Start Date End Date Coco Leos PA-C [address] [place] [address] PCP - General Physician Transplant Registered Nurse 02/17/17 12/15/22 documented as of this encounter
--- OUTSIDE RECORDS SUMMARY | 2024-11-23 10:38 | XMS_ITS | Encounter Summary ---
Author Organization [facility] Care Address [address] [place] [address] Phone Care Team Providers Care Rn House Supervisor Name Role Phone Coco Leos PA-C Primary Care Provider [phone] Provider, No-Primary Care Primary Care Provider Unavailable Encounter Details Date Type Department Care Team (Late st Contact Info) Description 06/09/2017 Pharmacy Visit RX [facility] [address] [place] [phone] Social History Tobacco Use Types Packs/Day [...] as of this encounter Care Teams Rn House Supervisor Relationship Specialty Start Date End Date Coco Leos PA-C [address] [place], [place] [phone] PCP - General Physician Roofer Helper 02/17/17 12/15/22 Provider, No-Primary Care [place] PCP - General 12/16/22 documented as of this encounter
--- OUTSIDE RECORDS SUMMARY | 2024-11-23 10:38 | XMS_ITS | Encounter Summary ---
Author Organization [facility] Care Address [address] [place] [address] Phone Care Team Providers Care Life Sciences Manager Name Role Phone Coco Leos PA-C Primary Care Provider [phone] Reason for Visit * Reason Comments Post-op Follow-up Call Encounter Details Date Type Department Care Team (Late st Contact Info) Description 05/04/2017 Nurse Triage [place] - [facility] - Procedure Unit [address] [place] [phone] Ashli Burr [address] [place] [address] Social History Tobacco Use Types Packs/Day Years [...] documented as of this encounter Care Teams Life Sciences Manager Relationship Specialty Start Date End Date Coco Leos PA-C [address] [place] [address] PCP - General Physician Tube Builder 02/17/17 12/15/22 documented as of this encounter
--- OUTSIDE RECORDS SUMMARY | 2024-11-23 10:38 | XMS_ITS | Encounter Summary ---
Author Organization [facility] Care Address [address] [place] [address] Phone Care Team Providers Care Furnace Cleaner Name Role Phone Coco Méndez PA-C Primary Care Provider [phone] Reason for Visit * Reason Onset Date Comments Med Request 06/08/2017 Encounter Details Date Type Department Care Team (Late st Contact Info) Description 06/08/[address] [facility] [address] [place] [phone] Nikko Han, [facility] [address] [place] [address] Social History Tobacco Use Types [...] Telephone Encounter - Nikko Han [facility] - 06/08/2017 4:44 PM CDT IR [...] There are no unexpected entries on the FACTORY EXPERT and refill frequency is every 29-30 days. Opioid agreement signed 01/12/[address] Méndez. Urine Drug Screen: 01/12/17 postieive as expected Respiratory Depression Risk Score 3; long acting opioid prescribed, emergency visit within last 6 months and history of opioid abuse Morphine equivalent dose is 105 mg/day. injection molding machine tender is available. Emergency intranasal naloxoneis warranted at this time. Prescriptions pended for Dr. Méndez, last visit: 04/09; return visit: 07/09. Please send orders to [facility] pharmacy for pick-up. Thank you, [...] documented as of this encounter Care Teams Furnace Cleaner Relationship Specialty Start Date End Date Coco Méndez PA-C [address] [place] [address] PCP - General Physician Histological Illustrator 02/17/17 12/15/22 documented as of this encounter
--- OUTSIDE RECORDS SUMMARY | 2024-11-23 10:38 | XMS_ITS | Encounter Summary ---
Author Organization [facility] Care Address [address] [place] [address] Phone Care Team Providers Care Blue Crabber Name Role Phone Coco Leos PA-C Primary Care Provider [phone] Provider, No-Primary Care Primary Care Provider Unavailable Encounter Details Date Type Department Care Team (Late st Contact Info) Description 04/09/2017 Pharmacy Visit RX [facility] [address] [place] [phone] Social History Tobacco Use Types Packs/Day [...] documented as of this encounter Care Teams Blue Crabber Relationship Specialty Start Date End Date Coco Leos PA-C [address] [place], [place] [phone] PCP - General Physician Machine Packer 02/17/17 12/15/22 Provider, No-Primary Care [place] PCP - General 12/16/22 documented as of this encounter
--- OUTSIDE RECORDS SUMMARY | 2024-11-23 10:38 | XMS_ITS | Encounter Summary ---
Author Organization [facility] Care Address [address] [place] [address] Phone Care Team Providers Care Die Casting Supervisor Name Role Phone Coco Leos PA-C Primary Care Provider [phone] Reason for Visit * Reason Comments Patient Reported Reason For Visit Encounter Details Date Type Department Care Team (Late st Contact Info) Description 05/13/2017 2:17 PM CDT - 05/13/2017 11:59 PM CDT Hospital Encounter Medical [facility] - Radiology - External [address] [place] [phone] Bridgett Ayers MD [address] [place], [place] [phone] Social History Tobacco Use Types Packs/Day Years [...] needed. 35.44 g 11 01/12/2017 5:22 PM MUD JACK OPERATOR 01/12/2017 omeprazole 20 mg enteric coated [...] bedtime. 30 capsule 11 01/12/2017 5:22 PM MUD JACK OPERATOR 01/12/2017 7 naloxone 1 mg/mL injection [...] use: As long as needed Video/Handout: https://[facility]Info[facility]/FlowPay/kwtydgg-sser-unpbtzwetf-tens Pain Management - Exercise Pain Management Coco Vega PA-C Note: Exercise: General Aerobic ?? Duration: 3 to 5 days per week for 20 minutes per day ?? Intensity: Moderate Strengthening: neither Back nor General (for widespread pain) nor Shoulder ?? Intensity: Moderate ?? Duration: 2 to 4 days per week ?? Instructions: See attached documentation for details Video/Handout: https://[facility] hospitalInfoReach/FlowPay/kcaagqm-qkzi-hrzwxfhuer-exercise documented as of this encounter Procedures Procedure [...] performed at 1423 hours on 04/16/2017 at [facility]. 1,034 images are provided and interpreted [...] performed at 1423 hours on 04/16/2017 at [facility]. 1,034 images are provided and interpreted [...] documented as of this encounter Care Teams Die Casting Supervisor Relationship Specialty Start Date End Date Coco Leos PA-C [address] [place] [address] PCP - General Physician Machine Sweeper Brush Maker 02/17/17 12/15/22 documented as of this encounter
--- OUTSIDE RECORDS SUMMARY | 2024-11-23 10:39 | XMS_ITS | Encounter Summary ---
Author Organization [facility] Care Address [address] [place] [address] Phone Care Team Providers Care Reconditioner Name Role Phone Provider, No-Primary Care Primary [...] UI Procedures MRI SPINE LUMBAR WO CONTRAST (93011) RAD MR SPINE W/O Coco Leos PA-C [address] [place] [address] Phone: tel: fax: [facility] - Radiology - MRI [address] [place] [phone] Phone: tel: fax: Referral ID Status Reason Start Date Expiration Date Visits Re quested Visits Authorized [id number] Closed 1 1 Encounter Details Date Type Department Care Team (Late st Contact Info) Description 01/22/2017 11:53 AM COMMERCIAL REAL ESTATE AGENT - 01/22/2017 11:59 PM COMMERCIAL REAL ESTATE AGENT Hospital Encounter Medical [facility] - Radiology - MRI [address] [place] [phone] Jelani Burt [address] [place] [address] Discharge Disposition: Home or Self [...] needed. 35.44 g 11 01/12/2017 5:22 PM COMMERCIAL REAL ESTATE AGENT 01/12/2017 omeprazole 20 mg enteric coated capsule Take 20 mg by mouth daily. cyclobenzaprine 10 mg tablet Take 10 mg by mouth at bedtime. 07/19/2014 7 gabapentin 100 mg capsuleIndicatio ns:Other chronic pain Take 1 capsule (100 mg total) by mouth at bedtime. 30 capsule 11 01/12/2017 5:22 PM COMMERCIAL REAL ESTATE AGENT 01/12/2017 7 oxyCODONE (OXYCONTIN) 15 mg XR tabletIndication s:chronic pain Take 1 tablet (15 mg total) by mouth 2 times daily. Earliest Fill Date: 02/09/17 60 tablet 02/11/2017 4:08 PM CDT 02/09/2017 7 oxyCODONE-acetam inophen 10-325 mg per tabletIndication s:Other chronic pain Take 1 tablet by mouth every 4 hours as needed (to be filled at [facility] ONLY). 120 tablet 01/12/2017 5:22 PM COMMERCIAL REAL ESTATE AGENT 01/12/2017 7 documented as of this encounter Plan of Treatment Not on file documented as of this encounter Procedures Procedure Name Priority Date/Time Associated Diagnosis Comments MRI SPINE LUMBAR WO CONTRAST Routine 01/22/2017 2:00 PM COMMERCIAL REAL ESTATE AGENT Low back pain with radiation, right documented in this encounter Results * MRI SPINE LUMBAR WO CONTRAST ([id number]) (01/22/2017 2:00 PM COMMERCIAL REAL ESTATE AGENT) Anatomical Region Laterality Modality Spine Magnetic Resonan ce Impressions 01/22/2017 5:07 PM COMMERCIAL REAL ESTATE AGENT Impression: 1. Multilevel degenerative changes worst at L5-S1 on the right side as detailed above. 2. Mildly increased signal in the paraspinal muscles of the lumbosacral spine consistent which may represent mild inflammation or muscle sprain. Narrative 01/22/2017 5:07 PM COMMERCIAL REAL ESTATE AGENT Procedure: MRI SPINE LUMBAR WO CONTRAST ([id number]) Indication: Right lower stomach is, back pain [...] 01/22/2017 Procedure: MRI SPINE LUMBAR WO CONTRAST ([id number]) Indication: Right lower stomach is, back pain [...] Total Score: 0 09/30/20 16 3:26 PM COMMERCIAL REAL ESTATE AGENT documented as of this encounter Care Teams Reconditioner Relationship Specialty Start Date End Date Provider, No-Primary Care [place] PCP - General 01/12/17 02/16/17 documented as of this encounter
--- OUTSIDE RECORDS SUMMARY | 2024-11-23 10:39 | XMS_ITS | Encounter Summary ---
Author Organization [facility] Care Address [address] [place] [address] Phone Care Team Providers Care Chief Environmental Commitment Officer Name Role Phone Provider, No-Primary Care Primary Care Provider Unavailable Reason for Visit * Reason Comments Post-op Follow-up Call Encounter Details Date Type Department Care Team (Late st Contact Info) Description 01/25/2017 Nurse Triage [place] [facility] - Procedure Unit [address] [place] [phone] Saige Rivas [address] [place] [address] Social History Tobacco Use Types Packs/Day Years [...] Total Score: 0 09/30/20 16 3:26 PM SLAG DUMPER documented as of this encounter Care Teams Chief Environmental Commitment Officer Relationship Specialty Start Date End Date Provider, No-Primary Care [place] PCP - General 01/12/17 02/16/17 documented as of this encounter
--- OUTSIDE RECORDS SUMMARY | 2024-11-23 10:39 | XMS_ITS | Encounter Summary ---
Author Organization [facility] Care Address [address] [place] [address] Phone Care Team Providers Care Quality Control Chemist Name Role Phone Provider, No-Primary Care Primary Care Provider Unavailable Reason for Visit * Reason Comments Back Pain NWP, etc f u, est ca re Encounter Details Date Type Department Care Team (Late st Contact Info) Description 09/30/2016 3:00 PM PIN DRAFTING MACHINE OPERATOR Office Visit [facility] [address] [place] [phone] [place] [address] [place], [place] [phone] Coco Leos PA-C [address] [place] [address] Social History Tobacco Use Types Packs/Day Years [...] Comments Blood Pressure 117/72 09/30/2016 3:36 PM PIN DRAFTING MACHINE OPERATOR Pulse 74 09/30/2016 3:36 PM PIN DRAFTING MACHINE OPERATOR Temperature 36.9 ??C (98.4 ??F) 09/30/2016 3:27 PM CS T Respiratory Rate - - Oxygen Saturation - - Inhaled Oxygen Concentration - - Weight 85 kg (187 lb 6.3 oz) 09/30/2016 3:27 PM PIN DRAFTING MACHINE OPERATOR Height 181.6 cm (5' 11.5 ) 09/30/2016 3:27 PM CS T Body Mass Index 25.77 09/30/2016 3:27 PM PIN DRAFTING MACHINE OPERATOR documented in this encounter Patient Instructions * Discharge Instructions* Coco Leos PA-C - 09/30/2016 4:24 PM PIN DRAFTING MACHINE OPERATOR Please get a copy of your recent office visit. Follow up 3-4 weeks. DRAFTING MACHINE OPERATOR documented in this encounter Progress [...] of Family Medicine [facility] for ED follow up and TO ESTABLISH CARE. He would also like referral to Pain Clinic here at [facility]. He has been followed by providers in [facility] as he is from that area. He has been living in an in [facility] since February 2016 as he is working as a member of the [employer] that is [facility] [employer] [facility]. He has PMH of chronic pain, back, shoulders, hands, wrists. He has had numerous surgeries in the past. He is on chronic narcotic regimen as prescribed by his PCP in [place], but would like to start receivingthese medications here so he doesn't have to drive to [place] every month for medications. He reports that [...] agreeing to prescribe any of his narcotics [facility] pharmacy for chronic opioid management. Patient verbalizes understanding with this. I have requested a followup appointment in one month. No prescriptions were given to the patient today. He has an appointment with his current PCP in [place] in the next few weeks. I have encouraged patient to maintain his level of activity. No labs were ordered today as it was to review his past medical records first. If indeed he is due for colonoscopy in happy to refer him for this here at the [facility] was have reviewed his records. Please note that I spent over 45 minutes face to face with the patient and > 50% of that was counseling and coordinating of care as noted above. Coco Leos PA-C [facility] Department of Family Medicine [address] [place] [phone] DRAFTING MACHINE OPERATOR documented in this encounter Plan of Treatment Not on file documented as of this encounter Visit Diagnoses Diagnosis Other chronic pain- Primary documented in this encounter Additional Health Concerns Assessment Noted Time PHQ-2 Depression Total Score: 0 09/30/20 16 3:26 PM PIN DRAFTING MACHINE OPERATOR documented as of this encounter Care Teams Quality Control Chemist Relationship Specialty Start Date End Date Provider, No-Primary Care PCP - General 07/25/16 7 documented as of this encounter
--- OUTSIDE RECORDS SUMMARY | 2024-11-23 10:39 | XMS_ITS | Encounter Summary ---
Author Organization [facility] Care Address [address] [place] [address] Phone Care Team Providers Care Fish Salter Name Role Phone Provider, No-Primary Care Primary Care Provider Unavailable Coco Leos PA-C Primary Care Provider [phone] Reason for Visit * Reason Onset Date Comments Results 01/25/2017 Encounter Details Date Type Department Care Team (Late st Contact Info) Description 01/25/[address] [facility] [address] [place] [phone] Coco Leos PA-C [address] [place], [place] [phone] Social History Tobacco Use Types Packs/Day Years [...] did share he fell yesterday while at [employer] landing on his buttocks. He is having increase pain to lower back and new L wrist pain. He did file an accident report through [employer] and will contact them regarding his wrist. [...] As long as needed Video/Handout: https://[facility].TimeSight Systems/Nanapi/fdsieiv-pjyv-cbmxzyxpiu-tens Pain Management - Exercise Pain Management No Coco Leos PA-C Note: Exercise: General Aerobic ?? Duration: 3 to 5 days per week for 20 minutes per day ?? Intensity: Moderate Strengthening: neither Back nor General (for widespread pain) nor Shoulder ?? Intensity: Moderate ?? Duration: 2 to 4 days per week ?? 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
--- OUTSIDE RECORDS SUMMARY | 2024-11-23 10:39 | XMS_ITS | Encounter Summary ---
Author Organization [facility] Care Address [address] [place] [address] Phone Care Team Providers Care Weight Guesser Name Role Phone Provider, No-Primary Care Primary Care Provider Unavailable Reason for Visit * Reason Onset Date Comments Med Request 01/13/2017 Encounter Details Date Type Department Care Team (Late st Contact Info) Description [facility] Unit [address] [phone] Talia Jasso, RN [address] [place], [place] [phone] Social History Tobacco Use Types Packs/Day Years [...] Total Score: 0 09/30/20 16 3:26 PM 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
--- OUTSIDE RECORDS SUMMARY | 2024-11-23 10:39 | XMS_ITS | Encounter Summary ---
Author Organization [facility] Care Address [address] [place] [address] Phone Care Team Providers Care Ink Technician Name Role Phone Provider, No-Primary Care Primary Care Provider Unavailable Reason for Visit * Reason Comments Back Pain Encounter Details Date Type Department Care Team (Late st Contact Info) Description 07/25/2016 12:39 PM CDT - 07/25/2016 2:37 PM CDT [facility] [place] [address] Elpidio Burk MD [address] [place], [place] [phone] Elpidio Canas MD [address] [place], [place] [phone] Discharge Disposition: Home or Self Care Social [...] to obtain Pain Clinic appointment. Consult in [facility]. Mess forwarded to Pain Clinic schedulers. [...] appointment and Navigators to monitor. Vicenta DELANEY, BUCKLE GLUER Nurse Navigator 09/25 Note to PAC central scheduler to assist with coordinating [facility] PCP to refer pt to pain clinic and follow pain clinic recommendations. Navigators to follow. Janelle Cerrato RN, BSN, [facility] ED Nurse Navigator 09/28 Patient has an appointment on 09/30/16. Navigators closing consult. Janelle Cerrato RN, BSN, [facility] ED Nurse Navigator H HAULER H HAULER documented in this encounter ED Notes * [...] Giuliano Davis MD Department of Emergency Medicine [facility] Healthcare Staff and Resident/Fellow Teaching [...] needed Video/Handout: https://[facility].Essensium/PeopleLinxlibrary/ozetqps-gxbl-tfkhamanps-tens Pain Management - Exercise Pain Management Coco Vega PA-C Note: Exercise: General Aerobic ?? Duration: 3 to 5 days per week for 20 minutes per day ?? Intensity: Moderate Strengthening: neither Back nor General (for widespread pain) nor Shoulder ?? Intensity: Moderate ?? Duration: 2 to 4 days per week ?? Instructions: See attached documentation for details Video/Handout: https://[facility].Essensium/PeopleLinxlibrary/menmneu-yulr-sresdgqdcy-exercise documented as of this encounter Visit Diagnoses [...] RN) documented in this encounter Care Teams Ink Technician Relationship Specialty Start Date End Date Provider, No-Primary Care PCP - General 07/25/16 7 documented as of this encounter
--- OUTSIDE RECORDS SUMMARY | 2024-11-23 10:39 | XMS_ITS | Encounter Summary ---
Author Organization [facility] Care Address [address] [place] [address] Phone Care Team Providers Care Vibratory Pile Driver Name Role Phone Unavailable Primary Care [...] of use: As long as needed Video/Handout: https://[facility].org/health-library/mojvofu-waph-irhuevsolu-tens Pain Management - Exercise Pain Management No Coco Leos PA-C Note: Exercise: General Aerobic ?? Duration: 3 to 5 days per week for 20 minutes per day ?? Intensity: Moderate Strengthening: neither Back nor General (for widespread pain) nor Shoulder ?? Intensity: Moderate ?? Duration: 2 to 4 days per week ?? Instructions: See attached documentation for details Video/Handout: [email or web address]://[facility].org/health-library/ededkcu-kfxq-xucuigprol-exercise documented as of this encounter Visit Diagnoses Not on filedocumented in this encounter
--- OUTSIDE RECORDS SUMMARY | 2024-11-23 10:39 | XMS_ITS | Encounter Summary ---
Author Organization [facility] Care Address [address] [place] [address] Phone Care Team Providers Care Mental Health Specialist Name Role Phone Unavailable Primary Care [...] of use: As long as needed Video/Handout: https://[facility].org/health-library/sydbbhw-lyhs-fpcmxvfjxg-tens Pain Management - Exercise Pain Management No Coco Leos PA-C Note: Exercise: General Aerobic ?? Duration: 3 to 5 days per week for 20 minutes per day ?? Intensity: Moderate Strengthening: neither Back nor General (for widespread pain) nor Shoulder ?? Intensity: Moderate ?? Duration: 2 to 4 days per week ?? Instructions: See attached documentation for details Video/Handout: [email or web address]://[facility].org/health-library/ogqkrno-bxhw-xphqncenfy-exercise documented as of this encounter Visit Diagnoses Not on filedocumented in this encounter
--- OUTSIDE RECORDS SUMMARY | 2024-11-23 10:39 | XMS_ITS | Encounter Summary ---
Author Organization [facility] Care Address [address] [place] [address] Phone Care Team Providers Care Information Director Name Role Phone Unavailable Primary Care Provider [...] As long as needed Video/Handout: https://[facility].org/health-library/iqnjgbs-riui-tjwixaqasv-tens Pain Management - Exercise Pain Management No Coco Leos PA-C Note: Exercise: General Aerobic ?? Duration: 3 to 5 days per week for 20 minutes per day ?? Intensity: Moderate Strengthening: neither Back nor General (for widespread pain) nor Shoulder ?? Intensity: Moderate ?? Duration: 2 to 4 days per week ?? Instructions: See attached documentation for details Video/Handout: https://[facility].org/health-library/qfwfjcm-nbgr-pmczevsdll-exercise documented as of this encounter Visit Diagnoses Not on filedocumented in this encounter
--- OUTSIDE RECORDS SUMMARY | 2024-11-23 10:39 | XMS_ITS | Encounter Summary ---
Author Organization [facility] Care Address [address] [place] [address] Phone Care Team Providers Care Information Systems Planner Name Role Phone Provider, No-Primary Care Primary Care Provider Unavailable Coco Leos PA-C Primary Care Provider [phone] Provider, No-Primary Care Primary Care Provider Unavailable Encounter Details Date Type Department Care Team (Late st Contact Info) Description 01/13/2017 Pharmacy Visit [facility] [address] [place] [phone] Social History Tobacco Use Types Packs/Day [...] Total Score: 0 09/30/20 16 3:26 PM 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
--- OUTSIDE RECORDS SUMMARY | 2024-11-23 10:39 | XMS_ITS | Encounter Summary ---
Author Organization [facility] Care Address [address] [place] [address] Phone Care Team Providers Care [place] Nurse Name Role Phone Provider, No-Primary Care Primary Care Provider Unavailable Coco Leos PA-C Primary Care Provider [phone] Reason for Visit * Reason Onset Date Comments Appointment Request 01/28/2017 Encounter Details Date Type Department Care Team (Late st Contact Info) Description 01/28/[address] [facility] [address] [facility] [address] [place] [address] Coco Leos PA-C [address] [place] [address] Social History Tobacco Use Types [...] can be seen? He fell Wednesday01/24/17 at [facility]. Report was made. He went to the ER last night because of L wrist pain but left due to wait. Since, this is an injury due to a fall at [facility] unsure how claim will be processed. Attempted [...] as needed Video/Handout: https://[facility].Trilibis/Cybits/akjihhd-cmic-izdwugxftw-tens Pain Management - Exercise Pain Management No Coco Leos PA-C Note: Exercise: General Aerobic ?? Duration: 3 to 5 days per week for 20 minutes per day ?? Intensity: Moderate Strengthening: neither Back nor General (for widespread pain) nor Shoulder ?? Intensity: Moderate ?? Duration: 2 to 4 days per week ?? Instructions: See attached documentation for details Video/Handout: https://[facility].Trilibis/Cybits/nycaoua-xmzi-jfnphmrywm-exercise documented as of this encounter Visit Diagnoses Not on filedocumented in this encounter Additional Health Concerns Assessment Noted Time PHQ-2 Depression Total Score: 0 09/30/20 16 3:26 PM NAPPER GRINDER documented as of this encounter Care Teams [place] Nurse Relationship Specialty Start Date End Date Provider, No-Primary Care [place] PCP - General 01/12/17 02/16/17 Coco Leos PA-C [address] [place] [address] PCP - General Physician [place] 02/17/17 12/15/22 documented as of this encounter
--- OUTSIDE RECORDS SUMMARY | 2024-11-23 10:39 | XMS_ITS | Encounter Summary ---
Author Organization [facility] Care Address [address] [place] [address] Phone Care Team Providers Care Retail Key Holder Name Role Phone Provider, No-Primary Care Primary Care Provider Unavailable Reason for Visit * Reason Comments [facility] Chronic back pain- worsened since fall. Pain unrelieved with Percocet 10/325, Oxycontin 10mg. Encounter Details Date Type Department Care Team (Late st Contact Info) Description 01/27/2017 5:55 PM CDT - 01/27/2017 7:50 PM CDT [facility] [place] [phone] Discharge Disposition: Home or Self Care Social [...] needed. 35.44 g 11 01/12/2017 5:22 PM TRUCKER 01/12/2017 omeprazole 20 mg enteric coated capsule Take 20 mg by mouth daily. cyclobenzaprine 10 mg tablet Take 10 mg by mouth at bedtime. 07/19/2014 7 gabapentin 100 mg capsuleIndicatio ns:Other chronic pain Take 1 capsule (100 mg total) by mouth at bedtime. 30 capsule 11 01/12/2017 5:22 PM TRUCKER 01/12/2017 7 oxyCODONE (OXYCONTIN) 15 mg XR tabletIndication s:chronic pain Take 1 tablet (15 mg total) by mouth 2 times daily. Earliest Fill Date: 02/09/17 60 tablet 02/11/2017 4:08 PM CDT 02/09/2017 7 oxyCODONE-acetam inophen 10-325 mg per tabletIndication s:Other chronic pain Take 1 tablet by mouth every 4 hours as needed (to be filled at [facility] ONLY). 120 tablet 01/12/2017 5:22 PM TRUCKER 01/12/2017 7 documented as of this encounter [...] As long as needed Video/Handout: https://[facility].org/health-library/dqcywnl-xqsa-nlvvltbmon-tens Pain Management - Exercise Pain Management No Coco Leos PA-C Note: Exercise: General Aerobic ?? Duration: 3 to 5 days per week for 20 minutes per day ?? Intensity: Moderate Strengthening: neither Back nor General (for widespread pain) nor Shoulder ?? Intensity: Moderate ?? Duration: 2 to 4 days per week ?? Instructions: See attached documentation for details Video/Handout: https://[facility]/health-library/tychzcs-auaw-tuuloemasr-exercise documented as of this encounter Visit Diagnoses Diagnosis Dorsalgia, unspecified- Primary documented in this encounter Additional Health Concerns Assessment Noted Time PHQ-2 Depression Total Score: 0 09/30/20 16 3:26 PM TRUCKER documented as of this encounter Care Teams Retail Key Holder Relationship Specialty Start Date End Date Provider, No-Primary Care [place] PCP - General 01/12/17 02/16/17 documented as of this encounter
--- OUTSIDE RECORDS SUMMARY | 2024-11-23 10:39 | XMS_ITS | Encounter Summary ---
Author Organization [facility] Care Address [address] [place] [address] Phone Care Team Providers Care Heel Sprayer First Name Role Phone Provider, No-Primary Care Primary Care Provider Unavailable Reason for Visit * Reason Comments Follow-up ape, 3-4w f/u pain m anagement Encounter Details Date Type Department Care Team (Late st Contact Info) Description 01/12/2017 2:45 PM ECHOCARDIOGRAPH TECH Office Visit [facility] [address] [place] [phone] [address] [place], [place] [phone] Coco Leos PA-C [address] [place], [place] [phone] Social History Tobacco Use Types Packs/Day Years [...] Comments Blood Pressure 119/77 01/12/2017 3:06 PM ECHOCARDIOGRAPH TECH Pulse 71 01/12/2017 3:06 PM ECHOCARDIOGRAPH TECH Temperature 37.2 ??C (99 ??F) 01/12/2017 3:06 PM ECHOCARDIOGRAPH TECH Respiratory Rate 16 01/12/2017 3:06 PM ECHOCARDIOGRAPH TECH Oxygen Saturation - - Inhaled Oxygen Concentration - - Weight 82.9 kg (182 lb 12.2 oz) 01/12/2017 3:06 PM ECHOCARDIOGRAPH TECH Height - - Body Mass Index 25.13 09/30/2016 3:27 PM ECHOCARDIOGRAPH TECH documented in this encounter Patient Instructions * Discharge Instructions* Coco Leos PA-C - 01/12/2017 4:11 PM ECHOCARDIOGRAPH TECH MRI ordered, when approved you will be called to schedule. I have colonscopy and endoscopy, you will be called to schedule Labs today, we will notify you of results All prescriptions sent to [facility]. Call them if you need refills. Start gabapentin 100 mg at bedtime Start topical lidocaine on back at bed time Start taking cyclobenzaprine 1 at bed time. Follow up with me in 2-3 months. CARDIOGRAPH TECH documented in this encounter Progress Notes * Coco Leos PA-C - 01/12/2017 2:45 PM CST Clinic Note Encounter Date: 01/12/2017 Subjective: Chief Complaint: Chief Complaint Patient presents with ??? Follow-up ape, 3-4w f/u pain management History of Present Illness:Edilberto Hawley is a 61 y.o. ESTABLISED pt, whom I met for the first time in September, presents to the Department of Family Medicine [facility] for ED follow up and TO ESTABLISH CARE. He would also like referral to Pain Clinic here at [facility]. He has been followed by providers in [facility] as he is from that area. He has been living in an in [facility] since February 2016 as he is working as a member of the [employer]. He was workingon [employer] here at [facility] but that project is complete. He is now He has PMH of chronic pain, back, shoulders, hands, wrists. He has had numerous surgeries in the past. He is on chronic narcotic regimen as prescribed by his PCP in [place], but would like to start receivingthese medications here so he doesn't have to drive to [place] every month for medications. He reports that he is on bid oxycontin 15 mg with prn oxycodone for breakthrough pain. He was on disability for along time, but went back to work in February 2016. He is currently working for [employer], now in [employer] doing a lot of lifting, up and [...] 4 hours as needed (tiffany filled at [facility]). 120 tablet 0 ??? [...] 724.2 M54.41 MRI SPINE LUMBAR WO CONTRAST (52864) lidocaine 5 % ointment oxyCODONE (OXYCONTIN) 15 [...] all narcotic prescriptions will be filled at [facility] pharmacy for chronic opioid management. [...] care as noted above. Coco Leos PA-C CARDIOGRAPH TECH documented in this encounter Plan of Treatment Not on file documented as of this encounter Procedures Procedure Name Priority Date/Time Associated Diagnosis Comments DRUGS OF ABUSE-URINE + CONFIRM Routine 01/12/2017 4:46 PM ECHOCARDIOGRAPH TECH Other chronic pain OPIATE, URINE CONFIRMATION Routine 01/12/2017 4:46 PM ECHOCARDIOGRAPH TECH Other chronic pain VITAMIN D, 25-HYDROXY Routine 01/12/2017 4:44 PM ECHOCARDIOGRAPH TECH Vitamin D deficiency CBC (COMPLETE BLOOD COUNT) Routine 01/12/2017 4:44 PM ECHOCARDIOGRAPH TECH History of colon polyps Gastroesophageal reflux disease, esophagitis presence not specified LIPID PANEL Routine 01/12/2017 4:44 PM ECHOCARDIOGRAPH TECH Lipid screening COMPREHENSIVE METABOLIC PANEL (CMP) Routine 01/12/2017 4:44 PM ECHOCARDIOGRAPH TECH Other chronic pain documented in this encounter [...] referring provider. June Coburn MD, PhD Clinical Urban Planning Professor [facility] Division of Gastroenterology & Hepatology Office: CC Provider, No-Primary Care us Coco Leos PA-C GI PROCEDURE ORDERABLES Edit ed Result - Final * MRI SPINE LUMBAR WO CONTRAST ([id number]) (01/22/2017 2:00 PM ECHOCARDIOGRAPH TECH) Anatomical Region Laterality Modality Spine Magnetic Resonan ce Impressions 01/22/2017 5:07 PM ECHOCARDIOGRAPH TECH Impression: 1. Multilevel degenerative changes worst at L5-S1 on the right side as detailed above. 2. Mildly increased signal in the paraspinal muscles of the lumbosacral spine consistent which may represent mild inflammation or muscle sprain. Narrative 01/22/2017 5:07 PM ECHOCARDIOGRAPH TECH Procedure: MRI SPINE LUMBAR WO CONTRAST ([id number]) Indication: Right lower stomach is, back pain [...] 01/22/2017 Procedure: MRI SPINE LUMBAR WO CONTRAST ([id number]) Indication: Right lower stomach is, back pain [...] * OPIATE, URINE CONFIRMATION (01/12/2017 4:46 PM ECHOCARDIOGRAPH TECH) Hydrocodone Confirmation - Urine <20 ng/mL 01/17/2017 12:38 PM ECHOCARDIOGRAPH TECH [facility] Oxycodone Confirmation - Urine >4000 ng/mL 01/17/2017 12:38 PM ECHOCARDIOGRAPH TECH [facility] Comment:Consistent with use of a drug containing oxycodone. Oxymorphone Confirmation - Urine 71 ng/mL 01/17/2017 12:38 PM ECHOCARDIOGRAPH TECH [facility] Comment: Consistent with metabolism of oxycodone. ??May also reflect independent use of oxymorphone. Hydromorphone (Dilaudid) Confirmation - Urine <20 ng/mL 01/17/2017 12:38 PM ECHOCARDIOGRAPH TECH [facility] Codeine Confirmation - Urine <20 ng/mL 01/17/2017 12:38 PM ECHOCARDIOGRAPH TECH [facility] Morphine Confirmation - Urine <20 ng/mL 01/17/2017 12:38 PM ECHOCARDIOGRAPH TECH [facility] Noroxycodone (Oxycodone Metabolite) Confirmation - Urine >4000 ng/mL 01/17/2017 12:38 PM ECHOCARDIOGRAPH TECH [facility] Comment: Noroxycodone is a metabolite of oxycodone; consistent with use of a drug containing oxycodone. Noroxymorphone (Oxycodone Metabolite) Confirmation - Urine >1000 ng/mL 01/17/2017 12:38 PM ECHOCARDIOGRAPH TECH [facility] Comment: Noroxymorphone is a metabolite of oxymorphone and naloxone (nornaloxone); consistent with use of a drug containing oxymorphone or naloxone. ??Oxymorphone may also be a metabolite of oxycodone. 6-acetylmorphine (Heroin metabolite) Confirmation - Urine <10 ng/mL 01/17/2017 12:38 PM ECHOCARDIOGRAPH TECH [facility] Comment: INTERPRETIVE INFORMATION: Opiates, Urine, ?Quantitative Methodology: [...] laboratory. Test developed and characteristics determined by [facility]. See Compliance Statement B: [employer]/ Norhydrocodone (Hydrocodone Metabolite) Confirmation - Urine <20 ng/mL 01/17/2017 12:38 PM ECHOCARDIOGRAPH TECH [facility] Comment: Performed by [facility], [facility] [place] [address] [email or web address], Jovon Aguirre MD, Lab. Director Urine specimen (specimen) 01/12/2017 4:46 PM ECHOCARDIOGRAPH TECH 01/12/2017 9:38 PM ECHOCARDIOGRAPH TECH Narrative SANDOVAL BARKER - 01/17/2017 12:38 PM ECHOCARDIOGRAPH TECH Specimen Source: Specimen Start Date: us Coco Leos PA-C MAILOUT - RANDOM URINES Veronica l Result [facility] [address] [place] [address] * (ABNORMAL) DRUGS OF ABUSE-URINE + CONFIRM (01/12/2017 4:46 PM ECHOCARDIOGRAPH TECH) Pathologist [facility] Amphetamines - Urine Negative Negative 01/12/2017 9:38 PM [facility] Comment: Test cut-off: 1000 ng/mL for d-methamphetamine. Benzodiazepines - Urine Negative Negative 01/12/2017 9:38 PM [facility] Comment: Test cut-off: ??100 ng/mL Cocaine - Urine Negative Negative 01/12/2017 9:38 PM [facility] Comment: Test cut-off: ??300 ng/mL Opiates - Urine Negative Negative 01/12/2017 9:38 PM [facility] Comment: Test cut-off: ??300 ng/mL for morphine Oxycodone - Urine Presumptive Positive(A) Negative 01/12/2017 9:38 PM [facility] Comment: Test cut-off: ??300 ng/mL Amphetamines assay cross-reacts well with amphetamine and methamphetamine, as well as the ui developer designer amphetamines MDMA ( Ecstasy ), MDA, MDEA ( Cesia ), and MBDB. Labetalol may also produce false positives due to cross-reactivity of a metabolite.The amphetamines assay has little or no cross-reactivity with ephedrine, pseudoephedrine, phentermine, and methylphenidate. Opiates assay has low cross-reactivity for buprenorphine, fentanyl, meperidine, methadone, oxycodone, and propoxyphene (all have cut-offs greater than 75,000 ng/mL). Please see Laboratory Services Handbook (http://healthcare.[facility]/path_handbook.index.html) for more detailed information on assay cross-reactivity. Drug of abuse screening tests are to be used for medical purposes only and not for non-medical purposes (e.g., employee, filter bed placer, or forensic testing). Urine specimen (specimen) 01/12/2017 4:46 PM ECHOCARDIOGRAPH TECH 01/12/2017 5:30 PM ECHOCARDIOGRAPH TECH Coco Leos PA-C RANDOM URINE Final Result [facility] [address] [place] [address] * CBC (COMPLETE BLOOD COUNT) (01/12/2017 4:44 PM ECHOCARDIOGRAPH TECH) WBC Count 8.3 3.7 - 10.5 K/MM3 01/12/2017 5:32 PM ECHOCARDIOGRAPH TECH [facility] RBC Count 4.79 4.50 - 6.20 M/MM3 01/12/2017 5:32 PM ECHOCARDIOGRAPH TECH [facility] Hemoglobin 15.0 13.2 - 17.7 g/dL 01/12/2017 5:32 PM ECHOCARDIOGRAPH TECH [facility] Hematocrit 44 40 - 52 % 01/12/2017 5:32 PM ECHOCARDIOGRAPH TECH [facility] MCV (Mean Corpuscular Volume) 92 82 - 99 FL 01/12/2017 5:32 PM ECHOCARDIOGRAPH TECH [facility] MCH (Mean Corpuscular Hemoglobin) 31 25 - 35 PG 01/12/2017 5:32 PM ECHOCARDIOGRAPH TECH [facility] MCHC (Mean Corpuscular Hemoglobin Concentration) 34 32 - 36 % 01/12/2017 5:32 PM ECHOCARDIOGRAPH TECH [facility] Platelet Count 212 150 - 400 K/MM3 01/12/2017 5:32 PM ECHOCARDIOGRAPH TECH [facility] MPV (Mean Platelet Volume) 10.3 9.4 - 12.3 FL 01/12/2017 5:32 PM ECHOCARDIOGRAPH TECH [facility] RDW (RBC Distribution Width)-SD 40.7 35.1 - 43.9 FL 01/12/2017 5:32 PM ECHOCARDIOGRAPH TECH [facility] RDW (RBC Distribution Width)-CV 12.3 9.0 - 14.5 % 01/12/2017 5:32 PM ECHOCARDIOGRAPH TECH [facility] Whole blood specimen (specimen) 01/12/2017 4:44 PM ECHOCARDIOGRAPH TECH 01/12/2017 5:29 PM ECHOCARDIOGRAPH TECH Coco Leos PA-C HEMATOLOGY ORDERABLES Final Result [facility] [address] [address] * (ABNORMAL) COMPREHENSIVE METABOLIC PANEL (CMP) (01/12/2017 4:44 PM ECHOCARDIOGRAPH TECH) Sodium 140 135 - 145 mEq/L 01/12/2017 9:33 PM [facility] Potassium 4.1 3.5 - 5.0 mEq/L 01/12/2017 9:33 PM [facility] Chloride 100 95 - 107 mEq/L 01/12/2017 9:33 PM [facility] CO2 26 22 - 29 mEq/L 01/12/2017 9:33 PM [facility] Anion Gap 14 8 - 18 mEq/L 01/12/2017 9:33 PM [facility] BUN (blood urea nitrogen) 15 10 - 20 mg/dL 01/12/2017 9:33 PM [facility] Creatinine 0.9 0.6 - 1.2 mg/dL 01/12/2017 9:33 PM [facility] Comment: Creatinine switched to enzymatic method on 03/24/2011. ??GFR equation switched to IDMS-traceable MDRD equation on 03/24/2011. Calculated GFR values are not valid in clinical settings where serum creatinine is changing. Glucose 100(H) 65 - 99 mg/dL 01/12/2017 9:33 PM [facility] Comment: The Expert Committee on the Diagnosis and Classification of Diabetes has defined impaired fasting glucose as greater than or equal to 100 mg/dL but less than 126 mg/dL. ??(Diabetes Care 28 (Suppl 1) S41,2005) Calcium 9.7 8.5 - 10.5 mg/dL 01/12/2017 9:33 PM [facility] Total Protein 7.9 6.0 - 8.0 g/dL 01/12/2017 9:33 PM [facility] Albumin 4.7 3.4 - 4.8 g/dL 01/12/2017 9:33 PM [facility] AST (Aspartate Aminotransferase) 31 0 - 40 U/L 01/12/2017 9:33 PM [facility] Comment: Adult reference ranges updated on 10/10/13 at 830am ALP (Alkaline Phosphatase) 92 40 - 129 U/L 01/12/2017 9:33 PM [facility] Bilirubin, Total 0.6 <=1.2 mg/dL 01/12/2017 9:33 PM [facility] ALT (Alanine Aminotransferase) 26 0 - 41 U/L 01/12/2017 9:33 PM [facility] Comment: The upper limit of [...] >60 mL/min/1. 73 m2 01/12/2017 9:33 PM [facility] Blood specimen (specimen) Venipuncture / Unknown 01/12/2017 4:44 PM ECHOCARDIOGRAPH TECH 01/12/2017 9:06 PM [facility] us Coco Leos PA-C CHEMISTRY ORDERABLES Final R esult [facility] [address] [place] [address] * LIPID PANEL (01/12/2017 4:44 PM ECHOCARDIOGRAPH TECH) Specimen Type Non-fasti ng 01/12/2017 9:33 PM [facility] Cholesterol 153 mg/dL 01/12/2017 9:33 PM [facility] Comment: Reference Range: Less than 200 mg/dL - desirable 200 - 240 mg/dL - increased risk Above 240 mg/dL - significant risk Triglycerides 120 0 - 150 mg/dL 01/12/2017 9:33 PM [facility] Comment: Reference Ranges: ?? Normal: ?<150 mg/dL ?? Borderline-high: ?150-199 mg/dL ?? High: ? 200-499 mg/dL ?? Very high: ? > or = 500 mg/dL HDL Cholesterol 48 >=41 mg/dL 01/12/2017 9:33 PM ECHOCARDIOGRAPH TECH [facility] LDL Cholesterol, Calculated 81 <=130 mg/dL 01/12/2017 9:33 PM ECHOCARDIOGRAPH TECH [facility] Non-HDL Cholesterol, Calculated 105 mg/dL 01/12/2017 9:33 PM ECHOCARDIOGRAPH TECH [facility] Comment: The reference ranges for Non-HDL-C are based on National Cholesterol Education III guidelines: ? Desirable: ? <130 mg/dL ? Borderline High: 130-159 mg/dL ? High: ?160-189 mg/dL ? Very High: ? > or = 190 mg/dL Blood specimen (specimen) Venipuncture / Unknown 01/12/2017 4:44 PM ECHOCARDIOGRAPH TECH 01/12/2017 9:06 PM ECHOCARDIOGRAPH TECH us Coco Leos PA-C CHEMISTRY ORDERABLES Final R esult [facility] [address] [place] [address] * (ABNORMAL) VITAMIN D, 25-HYDROXY (01/12/2017 4:44 PM ECHOCARDIOGRAPH TECH) Vitamin D, 25-Hydroxy 19(L) 20 - 80 ng/mL 01/12/2017 11:51 PM ECHOCARDIOGRAPH TECH [facility] Comment: This assay accurately quantifies the sum of 25-hydroxyvitamin D3 and 25-hydroxyvitamin D2. Endocrine Society, [place] of Medicine (IOM), and World Health Organization [...] (specimen) Venipuncture / Unknown 01/12/2017 4:44 PM ECHOCARDIOGRAPH TECH 01/12/2017 9:06 PM ECHOCARDIOGRAPH TECH us Coco Leos PA-C CHEMISTRY ORDERABLES Final R esult [facility] [address] [place] [address] documented in this encounter Visit Diagnoses Diagnosis [...] Total Score: 0 09/30/20 16 3:26 PM ECHOCARDIOGRAPH TECH documented as of this encounter Care Teams Heel Sprayer First Relationship Specialty Start Date End Date Provider, No-Primary Care [place] PCP - General 01/12/17 02/16/17 documented as of this encounter
--- OUTSIDE RECORDS SUMMARY | 2024-11-23 10:39 | XMS_ITS | Encounter Summary ---
Author Organization [facility] Care Address [address] [place] [address] Phone Care Team Providers Care Advanced Manufacturing Vice President Name Role Phone Provider, No-Primary Care Primary Care Provider Unavailable Coco Leos PA-C Primary Care Provider [phone] Provider, No-Primary Care Primary Care Provider Unavailable Encounter Details Date Type Department Care Team (Late st Contact Info) Description 01/12/2017 Pharmacy Visit RX [facility] [address] [place] [phone] Social History Tobacco Use Types Packs/Day [...] Total Score: 0 09/30/20 16 3:26 PM LEADITE WORKER documented as of this encounter Care Teams Advanced Manufacturing Vice President Relationship Specialty Start Date End Date Provider, No-Primary Care [place] PCP - General 01/12/17 02/16/17 Coco Leos PA-C [address] [place] [address] PCP - General Physician Safe Technician 02/17/17 12/15/22 Provider, No-Primary Care [place] PCP - General 12/16/22 documented as of this encounter
--- OUTSIDE RECORDS SUMMARY | 2024-11-23 10:39 | XMS_ITS | Encounter Summary ---
Author Organization [facility] Care Address [address] [place] [address] Phone Care Team Providers Care Transition Social Worker Name Role Phone Provider, No-Primary Care Primary Care Provider Unavailable Reason for Visit * Reason Comments Patient Reported Reason For Visit Patient Reported Reason For Visit 01/13 Pr ep call completed. Instructions mailed. Prescription to be mailed by [facility]. ~tm~ Encounter Details Date Type Department Care Team (Late st Contact Info) Description 01/22/2017 3:00 PM SPANISH MOSS PICKER Office Visit [facility] - Procedure Unit [address] [address] June Coburn MD [address] [place] [phone] Social History Tobacco Use Types Packs/Day [...] Comments Blood Pressure 107/76 01/22/2017 5:27 PM SPANISH MOSS PICKER Pulse - - Temperature 36.9 ??C (98.4 ??F) 01/22/2017 3:22 PM CS T Respiratory Rate - - Oxygen Saturation 97% 01/22/2017 5:27 PM SPANISH MOSS PICKER Inhaled Oxygen Concentration - - Weight 82.9 kg (182 lb 12.2 oz) 01/22/2017 3:28 PM SPANISH MOSS PICKER Height 180.3 cm (5' 10.98 ) 01/22/2017 3:[address] Body Mass Index 25.5 01/22/2017 3:28 PM SPANISH MOSS PICKER documented in this encounter Patient Instructions * Discharge Instructions* Bria Padilla RN - 01/22/2017 4:54 PM SPANISH MOSS PICKER AFTER YOUR COLONOSCOPY/ ENDOSCOPY Due to the [...] on weekends or holidays, call the Hospital lcac radar operator/navigator at and ask to have the GI Commercial Energy Auditor director of labor relations paged. OR 24 hours a day call [...] Copy provided. Finalized by: Bria Padilla RN ISH MOSS PICKER documented in this encounter H&P Notes * [...] 4 hours as needed (tiffany filled at [facility]). ??? [DISCONTINUED] polyethylene glycol-electrolyte [...] Procedure Note Date: 01/22/2017 Referring Physician: Coco Leos Patient: Edilberto Hawley PCP: Provider, No-Primary Care [...] referring provider. June Coburn MD, PhD Clinical Press Department Manager [facility] Division of Gastroenterology & Hepatology Office: CC Provider, No-Primary Care ISH MOSS PICKER documented in this encounter Plan of [...] over 2 days) Melanie Barrera MD Clinical Press Department Manager Department of Internal Medicine Division of Gastroenterology and Hepatology [address] [place] [address] Fax [email or web address] Addendum after Pathology Evaluation: 05/11/2017 10:40 AM Pathology: 3-10 tubular adenomas Repeat colonoscopy: Based on these results, I recommend a repeat colonoscopy in 1 year. Results disclosed by: Mail Results for orders placed or performed in visit on 05/03/17 SURGICAL PATHOLOGY EXAM Result Value Ref Range Case Report ?Surgical Pathology ?Case: [id number] ? Authorizing Provider: ??Melanie Sweeney MD ? [...] referring provider. June Coburn MD, PhD Clinical Press Department Manager [facility] Division of Gastroenterology & Hepatology Office: [...] Procedure - Intra-procedural Given 01/22/2017 4:41 PM SPANISH MOSS PICKER 25 mcg Given 01/22/2017 4:18 PM SPANISH MOSS PICKER 50 mcg lidocaine 4% solution 3 mL 3 mL, Topical, As Needed, pain, Other, Procedural Sedation - topical anesthesia. Bandy to back of throat before GI procedure., Starting on Wed01/22/17 at 1615, For 4 hours, Procedure - Intra-procedural Given 01/22/2017 4:14 PM SPANISH MOSS PICKER 3 mL midazolam (PF) (VERSED) 1 mg/mL injection 0.5-5 mg 0.5-5 mg, Intravenous, As Needed, Other, Procedural sedation. As needed during GI procedures. May repeat as verbally directed by Physician., Starting on Wed01/22/17 at 1615, For 4 hours, Procedure - Intra-procedural Given 01/22/2017 4:20 PM SPANISH MOSS PICKER 2 mg Given 01/22/2017 4:18 PM SPANISH MOSS PICKER 3 mg sodium chloride 0.9% continuous infusion at 1-999 mL/hr, Intravenous, Continuous, Starting on Wed01/22/17 at 1600 New Bag 01/22/2017 3:33 PM SPANISH MOSS PICKER 200 mL/hr documented in this encounter Additional Health Concerns Assessment Noted Time PHQ-2 Depression Total Score: 0 09/30/20 16 3:26 PM SPANISH MOSS PICKER documented as of this encounter Care Teams Transition Social Worker Relationship Specialty Start Date End Date Provider, No-Primary Care [place] PCP - General 01/12/17 02/16/17 documented as of this encounter
--- OUTSIDE RECORDS SUMMARY | 2024-11-23 10:39 | XMS_ITS | Encounter Summary ---
Author Organization [facility] Care Address [address] [place] [address] Phone Care Team Providers Care Alarm Security Or Surveillance Monitor Name Role Phone Provider, No-Primary Care Primary Care Provider Unavailable Encounter Details Date Type Department Care Team (Late st Contact Info) Description 01/13/2017 Letter (Out) [facility] - Procedure Unit [address] [place] [address] Talia Jasso, RN [address] [place] [address] Social History Tobacco Use Types Packs/Day Years [...] Score: 0 09/30/20 16 3:26 PM DIRECTOR PROCESS documented as of this encounter Care Teams Alarm Security Or Surveillance Monitor Relationship Specialty Start Date End Date Provider, No-Primary Care [place] PCP - General 01/12/17 02/16/17 documented as of this encounter
--- OUTSIDE RECORDS SUMMARY | 2024-11-23 10:39 | XMS_ITS | Encounter Summary ---
Author Organization [facility] Care Address [address] [place] [address] Phone Care Team Providers Care Sewer Connector Name Role Phone Provider, No-Primary Care Primary Care Provider Unavailable Reason for Visit * Reason Comments Patient Reported Reason For Visit Encounter Details Date Type Department Care Team (Late st Contact Info) Description 01/12/2017 4:40 PM LANG INTERPRETER Lab Only [facility] [address] [place] [phone] [facility] [address] [place] [address] Lab Services, [facility] Social History Tobacco Use [...] Total Score: 0 09/30/20 16 3:26 PM LANG INTERPRETER documented as of this encounter Care Teams Sewer Connector Relationship Specialty Start Date End Date Provider, No-Primary Care [place] PCP - General 01/12/17 02/16/17 documented as of this encounter
--- OUTSIDE RECORDS SUMMARY | 2024-11-23 10:39 | XMS_ITS | Encounter Summary ---
Author Organization [facility] Care Address [address] [place] [address] Phone Care Team Providers Care Finger Grip Machine Operator Name Role Phone Provider, No-Primary Care Primary Care Provider Unavailable Reason for Visit * Reason Onset Date Comments Shoulder Pain 07/25/2016 Encounter Details Date Type Department Care Team (Late st Contact Info) Description 07/25/2016 Nurse Triage [facility] [address] [place] [address] Eri Casas [address], [place] [id number] Social History Tobacco Use Types Packs/Day Years [...] - 07/25/2016 11:38 AM CDT Edilberto Hawley [phone] calling to report patient is having sever [...] 07/25/2016 11:30 AM Emergent call. Edilberto Hawley [phone] will be driving in to the ED from [place]. Called in on [phone]. Healthcare. Muscle pain. Back Pain. documented in this encounter Plan of Treatment Not on file documented as of this encounter Visit Diagnoses Not on filedocumented in this encounter Care Teams Finger Grip Machine Operator Relationship Specialty Start Date End Date Provider, No-Primary Care PCP - General 07/25/16 7 documented as of this encounter
--- OUTSIDE RECORDS SUMMARY | 2024-11-23 10:43 | XMS_ITS | Encounter Summary ---
Author Organization [facility] Address [address] [place] [address] Phone Care Team Providers Care Swing Type Lathe Operator Name Role Phone Provider, Not On File Primary Care Provider Unav ailable Reason for Visit * Auth/Cert Specialty Diagnoses / Procedures Referred By Celine almaguer Referred To Contact Referral ID Status Reason Start Date Expiration Date Visits Re quested Visits Authorized [id number] 1 1 Encounter Details Date Type Department Care Team ([facility] Contact Info) Description 11/22/2019 Home Care Visit [facility] [address] [place] [address] Pushpa Vela V, RN [place] SN - LAB Social History Tobacco Use Types Packs/Day Years Used Date Smoking Tobacco: Never Assessed Sex and Gender Information Value Date Recorded Sex Assigned at Not on file Legal Sex Male 4:33 PM MOTOR AND GENERATOR BRUSH MAKER Gender Identity Not on file Sexual Orientation Not on file documented as of this encounter Last Filed Vital Signs Vital Sign Reading Time Taken Comments Blood Pressure 120/64 11/22/2019 8:30 AM MOTOR AND GENERATOR BRUSH MAKER Pulse 80 11/22/2019 8:30 AM MOTOR AND GENERATOR BRUSH MAKER Temperature 36.1 ??C (97 ??F) 11/22/2019 8:30 AM MOTOR AND GENERATOR BRUSH MAKER Respiratory Rate 20 11/22/2019 8:30 AM MOTOR AND GENERATOR BRUSH MAKER Oxygen Saturation 98% 11/22/2019 8:30 AM MOTOR AND GENERATOR BRUSH MAKER Inhaled Oxygen Concentration - - Weight - - Height - - Body Mass Index - - documented in this encounter Plan of Treatment Not on file documented as of this encounter Visit Diagnoses Not on filedocumented in this encounter Home Health Visit - Care Plan Visit Details Visit Type -SN - Lab Discipline -Nursing Home Problems Problem Description Start Date Status Goals Interve ntions FALL PREVENTION (O) Disciplines: Nursing Home, Physical Therapy, Occupational Therapy, Speech Language Pathology, Getter Operator, Medical Social Work 11/07/2019 Active 1 goal linked to scheduled/docume nted intervention 1 goal intervention scheduled/documen lobito in this visit HC CARE SUMMARY Disciplines: Nursing Home, Physical Therapy, Occupational Therapy, Speech Language Pathology, Medical Social Work, Licensed Practical Nurse, Respiratory Therapy Care Summary 11/07/2019 Active 1 goal linked to scheduled/docume nted intervention 1 goal intervention scheduled/documen lobito in this visit WOUND CARE EDUCATION Disciplines: Nursing Home Wound Care Education 11/07/2019 Active - 2 problem interventions scheduled/documen lobito in this visit WOUND CARE ORDERS(O) Disciplines: Nursing Home Wound Care Orders 11/07/2019 Active 1 goal linked to scheduled/docume nted intervention 1 goal intervention scheduled/documen lobito in this visit SN LAB ORDER Disciplines: Nursing Home SN Lab Order 11/07/2019 Active - 1 problem intervention scheduled/documen lobito in this visit HC IV EDUCATION Disciplines: Nursing Home IV Education 11/07/2019 Active - 1 problem intervention scheduled/documen lobito in this visit CVC TUNNELED/NON TUNNELED/PICC Disciplines: Nursing Home CVC Tunneled/Non-Benigno neled/PICC 11/07/2019 Active 1 goal linked to scheduled/docume nted intervention 1 goal intervention scheduled/documen lobito in this visit HC CVC TUNNELED/NON-TUNN ELED/PICC CARE Disciplines: Nursing Home CVC Tunneled/Non-Benigno neled/PICC Care 11/07/2019 Active - 2 problem interventions scheduled/documen lobito in this visit HC SN MEDICATION Disciplines: Nursing Home SN Medication 11/07/2019 Active - 2 problem interventions scheduled/documen lobito in this visit SN SOC GENERAL ORDERS Disciplines: Nursing Home SN General Orders 11/07/2019 Active 1 [...] cap change due on 11/29/19. Medication Review/Education Problem:[facility] MEDICATION Completed Medication reconciliation performed. Needs/changes identified: none New major medication interactions or any symptomatic interactions identified: none Medication instructions provided for the following med(s): oxycodone, glycolax, oxycodone-including: reason for use, evaluation of effectiveness, side effects, frequency and dose Instruction provided to Patient Method of instruction verbal Response verbalize understanding High Risk Med Safety Education- Pain Medication Problem:[facility] MEDICATION Completed Patient takes pain medication Oxycodone. [...] on --- with ---. Dr. Leonard Jasso, WIRE STITCHER OPERATOR, contacted and agrees with plan of care. Clinical findings: Patient had surgery on 11/01/19 at [facility] due to osteomyelitis of right ankle. [...] Not needed. Social Work Focus: Not needed. Getter Operator to provide: Not needed. Past Medical History: [...] none documented in this encounter Care Teams Swing Type Lathe Operator Relationship Specialty Start Date End Date Provider, Not On File [place] PCP - General 11/06/19 11/26/19 documented as of this encounter
--- OUTSIDE RECORDS SUMMARY | 2024-11-23 10:43 | XMS_ITS | Encounter Summary ---
Author Organization [facility] Address [address] [place] [address] Phone Care Team Providers Care Ammonium Nitrate Neutralizer Name Role Phone Provider, None Primary Care Provider Unavailabl e Reason for Visit * Auth/Cert Specialty Diagnoses / Procedures Referred By Celine almaguer Referred To Contact Referral ID Status Reason Start Date Expiration Date Visits Re quested Visits Authorized [id number] 1 1 Encounter Details Date Type Department Care Team (Late st Contact Info) Description 12/16/2019 10:00 AM PARK MAINTENANCE TECHNICIAN [facility] [address] [place] [address] Eden Haynes (Rn), RN [place] SN - [place] RESUMPTION OF CARE Social History Tobacco Use Types Packs/Day Years Used Date Smoking Tobacco: Never Assessed Sex and Gender Information Value Date Recorded Sex Assigned at Not on file Legal Sex Male 4:33 PM PARK MAINTENANCE TECHNICIAN Gender Identity Not on file Sexual Orientation Not on file documented as of this encounter Last Filed Vital Signs Vital Sign Reading Time Taken Comments Blood Pressure 122/80 12/16/2019 11:16 AM PARK MAINTENANCE TECHNICIAN Pulse 73 12/16/2019 11:16 AM PARK MAINTENANCE TECHNICIAN Temperature 36.7 ??C (98 ??F) 12/16/2019 11:16 AM PARK MAINTENANCE TECHNICIAN Respiratory Rate 16 12/16/2019 11:16 AM PARK MAINTENANCE TECHNICIAN Oxygen Saturation 97% 12/16/2019 11:16 AM PARK MAINTENANCE TECHNICIAN Inhaled Oxygen Concentration - - Weight 86.6 kg (191 lb) 12/16/2019 11:16 AM PARK MAINTENANCE TECHNICIAN Height - - Body Mass Index 26.64 11/07/2019 9:02 AM PARK MAINTENANCE TECHNICIAN documented in this encounter Plan of Treatment Not on file documented as of this encounter Visit Diagnoses Not on filedocumented in this encounter Home Health Visit - Care Plan Visit Details Visit Type -SN - OASIS SURINDER Discipline -[facility] Problems Problem Description Start Date Status Goals Interventions FALL PREVENTION (O) Disciplines: [facility], Physical Therapy, Occupational Therapy, Speech Language Pathology, Circulation Manager, Medical Social Work 11/15/2019 Resolved on 12/16/2019 1 goal linked to scheduled/docume nted intervention 1 goal intervention scheduled/documen lobito in this visit HC CARE SUMMARY Disciplines: [facility], Physical Therapy, Occupational Therapy, Speech Language Pathology, Medical Social Work, Licensed Practical Nurse, Respiratory Therapy Care Summary 11/15/2019 Resolved on 12/16/2019 1 goal linked to scheduled/docume nted intervention 1 goal intervention scheduled/documen lobito in this visit HC SN MEDICATION Disciplines: [facility] SN Medication 11/15/2019 Resolved on 12/16/2019 - 1 problem intervention scheduled/documen lobito in this visit SN SOC GENERAL ORDERS Disciplines: M[facility] SN General Orders 11/15/2019 Resolved on 12/16/2019 1 goal linked to scheduled/docume nted intervention 1 goal intervention scheduled/documen lobito in this visit CVC TUNNELED/NON TUNNELED/PICC Disciplines: Mcc CVC Tunneled/Non-Benigno neled/PICC 11/15/2019 Resolved on 12/16/2019 1 goal linked to scheduled/docume nted intervention 1 goal intervention scheduled/documen lobito in this visit HC CVC TUNNELED/NON-TUNN ELED/PICC CARE Disciplines: Mcc CVC Tunneled/Non-Benigno neled/PICC Care 11/15/2019 Resolved on 12/16/2019 - 3 problem interventions scheduled/documen lobito in this visit WOUND CARE ORDERS(O) Disciplines: Mcc Wound Care Orders 11/15/2019 Resolved on 12/16/2019 1 goal linked to scheduled/docume nted intervention 1 goal intervention scheduled/documen lobito in this visit FALL PREVENTION (O) Disciplines: Mcc, Physical Therapy, Occupational Therapy, Speech Language Pathology, Circulation Manager, Medical Social Work 12/16/2019 Active 1 goal linked to scheduled/docume nted intervention 1 goal intervention scheduled/documen lobito in this visit HC CARE SUMMARY Disciplines: Mcc, Physical Therapy, Occupational Therapy, Speech Language Pathology, Medical Social Work, Licensed Practical Nurse, Respiratory Therapy Care Summary 12/16/2019 Active 1 goal linked to scheduled/docume nted intervention 1 goal intervention scheduled/documen lobito in this visit HC SN MEDICATION Disciplines: Mcc SN Medication 12/16/2019 Active - 1 problem intervention scheduled/documen lobito in this visit SN SOC GENERAL ORDERS Disciplines: Mcc SN General Orders 12/16/2019 Active 1 goal linked to scheduled/docume nted intervention 1 goal intervention scheduled/documen lobito in this visit WOUND CARE ORDERS(O) Disciplines: Mcc Wound Care Orders 12/16/2019 Active 1 goal linked to scheduled/docume nted intervention 1 goal intervention scheduled/documen lobito in this visit WOUND CARE ORDERS(O) Disciplines: Mcc Wound Care Orders 12/16/2019 Active 1 goal linked to scheduled/docume nted intervention 1 goal intervention scheduled/documen lobito in this visit HC SN RESUMPTION OF CARE (SURINDER) Disciplines: Mcc 12/16/2019 Active 1 goal linked to scheduled/docume [...] Not needed. Social Work Focus: Not needed. Circulation Manager to provide: Not needed. Past Medical [...] treat for: refused Social Work Focus: refused Circulation Manager to provide: refused Past Medical History: osteomyelitis [...] treat for: refused Social Work Focus: refused Circulation Manager to provide: refused Past Medical History: osteomyelitis [...] Scheduled documented in this encounter Care Teams Ammonium Nitrate Neutralizer Relationship Specialty Start Date End Date Provider, Lisa NOBLE PCP - General 11/27/19 documented as of this encounter
--- OUTSIDE RECORDS SUMMARY | 2024-11-23 10:43 | XMS_ITS | Encounter Summary ---
Author Organization [facility] Address [address] [place] [address] Phone Care Team Providers Care Electric Detector Operator Name Role Phone Provider, Not On File Primary Care Provider Unav ailable Reason for Visit * Auth/Cert Specialty Diagnoses / Procedures Referred By Celine almaguer Referred To Contact Referral ID Status Reason Start Date Expiration Date Visits Re quested Visits Authorized [id number] 1 1 Encounter Details Date Type Department Care Team (Latest Contact Info) Description 11/20/2019 2:00 AM NET WPF DEVELOPER Home Care Visit [facility] [address] [place] [address] Pushpa Vela V, RN [place] SN - INTRAVENOUS VISIT Social History Tobacco Use Types Packs/Day Years Used Date Smoking Tobacco: Never Assessed Sex and Gender Information Value Date Recorded Sex Assigned at Not on file Legal Sex Male 4:33 PM NET WPF DEVELOPER Gender Identity Not on file Sexual Orientation Not on file documented as of this encounter Last Filed Vital Signs Vital Sign Reading Time Taken Comments Blood Pressure - - Pulse 80 11/20/2019 10:41 AM NET WPF DEVELOPER Temperature 36.1 ??C (96.9 ??F) 11/20/2019 10:[address] Respiratory Rate - - Oxygen Saturation 98% 11/20/2019 10:41 AM NET WPF DEVELOPER Inhaled Oxygen Concentration - - Weight - - Height - - Body Mass Index - - documented in this encounter Plan of Treatment Not on file documented as of this encounter Visit Diagnoses Not on filedocumented in this encounter Home Health Visit - Care Plan Visit Details Visit Type -SN - Intravenous Visit Discipline -Custodial Problems Problem Description Start Date Status Goals Interve ntions FALL PREVENTION (O) Disciplines: Custodial, Physical Therapy, Occupational Therapy, Speech Language Pathology, Yard Rigger, Medical Social Work 11/07/2019 Active 1 goal linked to scheduled/docume nted intervention 1 goal intervention scheduled/documen lobito in this visit HC CARE SUMMARY Disciplines: Custodial, Physical Therapy, Occupational Therapy, Speech Language Pathology, Medical Social Work, Licensed Practical Nurse, Respiratory Therapy Care Summary 11/07/2019 Active 1 goal linked to scheduled/docume nted intervention 1 goal intervention scheduled/documen lobito in this visit WOUND CARE EDUCATION Disciplines: Custodial Wound Care Education 11/07/2019 Active - 1 problem intervention scheduled/documen lobito in this visit WOUND CARE ORDERS(O) Disciplines: Custodial Wound Care Orders 11/07/2019 Active 1 goal linked to scheduled/docume nted intervention 1 goal intervention scheduled/documen lobito in this visit HC IV EDUCATION Disciplines: Custodial IV Education 11/07/2019 Active - 1 problem intervention scheduled/documen lobito in this visit CVC TUNNELED/NON TUNNELED/PICC Disciplines: Custodial CVC Tunneled/Non-Benigno neled/PICC 11/07/2019 Active 1 goal linked to scheduled/docume nted intervention 1 goal intervention scheduled/documen lobito in this visit HC CVC TUNNELED/NON-TUNN ELED/PICC CARE Disciplines: Custodial CVC Tunneled/Non-Benigno neled/PICC Care 11/07/2019 Active - 2 problem interventions scheduled/documen lobito in this visit PAIN-MANAGEMENT/E DUCATION Disciplines: Custodial, Physical Therapy, Occupational Therapy, Speech Language Pathology 11/07/2019 Active 1 goal linked to scheduled/docume nted intervention 1 goal intervention scheduled/documen lobito in this visit HC SN MEDICATION Disciplines: Custodial SN Medication 11/07/2019 Active - 2 problem interventions scheduled/documen lobito in this visit SN SOC GENERAL ORDERS Disciplines: Custodial SN General Orders 11/07/2019 Active 1 goal linked to scheduled/docume nted intervention 2 goal interventions scheduled/documen lobito in this visit DEPRESSION Disciplines: Custodial Depression Risk 11/13/2019 Active 1 goal linked [...] on --- with ---. Dr. Leonard Jasso, AXMINSTER WEAVER, contacted and agrees with plan of care. [...] Not needed. Social Work Focus: Not needed. Yard Rigger to provide: Not needed. Past Medical History: [...] understanding. documented in this encounter Care Teams Electric Detector Operator Relationship Specialty Start Date End Date Provider, Not On File [place] PCP - General 11/06/19 11/26/19 documented as of this encounter
--- OUTSIDE RECORDS SUMMARY | 2024-11-23 10:43 | XMS_ITS | Encounter Summary ---
Author Organization [facility] Address [address] [place] [address] Phone Care Team Providers Care Center Maker Hand Name Role Phone Provider, Not On File Primary Care Provider Unav ailable Reason for Visit * Auth/Cert Specialty Diagnoses / Procedures Referred By Celine almaguer Referred To Contact Referral ID Status Reason Start Date Expiration Date Visits Re quested Visits Authorized [id number] 1 1 Encounter Details Date Type Department Care Team ([facility] Contact Info) Description 11/24/2019 Home Care Visit [facility] [address] [place] [address] Pushpa Vela V, RN [place] SN - INTRAVENOUS VISIT Social History Tobacco Use Types Packs/Day Years Used Date Smoking Tobacco: Never Assessed Sex and Gender Information Value Date Recorded Sex Assigned at Not on file Legal Sex Male 4:33 PM SCARFER OPERATOR Gender Identity Not on file Sexual Orientation Not on file documented as of this encounter Last Filed Vital Signs Vital Sign Reading Time Taken Comments Blood Pressure 118/62 11/24/2019 9:21 AM SCARFER OPERATOR Pulse 82 11/24/2019 9:21 AM SCARFER OPERATOR Temperature 36.1 ??C (96.9 ??F) 11/24/2019 9:21 AM CS T Respiratory Rate 18 11/24/2019 9:21 AM SCARFER OPERATOR Oxygen Saturation 96% 11/24/2019 9:21 AM SCARFER OPERATOR Inhaled Oxygen Concentration - - Weight - - Height - - Body Mass Index - - documented in this encounter Plan of Treatment Not on file documented as of this encounter Visit Diagnoses Not on filedocumented in this encounter Home Health Visit - Care Plan Visit Details Visit Type -SN - Intravenous Visit Discipline -Fpc Problems Problem Description Start Date Status Goals Interve ntions FALL PREVENTION (O) Disciplines: Fpc, Physical Therapy, Occupational Therapy, Speech Language Pathology, Soil Field Technician, Medical Social Work 11/07/2019 Active 1 goal linked to scheduled/docume nted intervention 1 goal intervention scheduled/documen lobito in this visit HC CARE SUMMARY Disciplines: Fpc, Physical Therapy, Occupational Therapy, Speech Language Pathology, Medical Social Work, Licensed Practical Nurse, Respiratory Therapy Care Summary 11/07/2019 Active 1 goal linked to scheduled/docume nted intervention 1 goal intervention scheduled/documen lobito in this visit WOUND CARE EDUCATION Disciplines: Fpc Wound Care Education 11/07/2019 Active - 2 problem interventions scheduled/documen lobito in this visit WOUND CARE ORDERS(O) Disciplines: Fpc Wound Care Orders 11/07/2019 Active 1 goal linked to scheduled/docume nted intervention 1 goal intervention scheduled/documen lobito in this visit CVC TUNNELED/NON TUNNELED/PICC Disciplines: Fpc CVC Tunneled/Non-Benigno neled/PICC 11/07/2019 Active 1 goal linked to scheduled/docume nted intervention 1 goal intervention scheduled/documen lobito in this visit HC CVC TUNNELED/NON-TUNN ELED/PICC CARE Disciplines: Fpc CVC Tunneled/Non-Benigno neled/PICC Care 11/07/2019 Active - 2 problem interventions scheduled/documen lobito in this visit PAIN-MANAGEMENT/E DUCATION Disciplines: Fpc, Physical Therapy, Occupational Therapy, Speech Language Pathology 11/07/2019 Active 1 goal linked to scheduled/docume nted intervention 1 goal intervention scheduled/documen lobito in this visit HC SN MEDICATION Disciplines: Fpc SN Medication 11/07/2019 Active - 1 problem intervention scheduled/documen lobito in this visit SN SOC GENERAL ORDERS Disciplines: Fpc SN General Orders 11/07/2019 Active 1 goal [...] on --- with ---. Dr. Leonard Jasso, AUDIO TAPE LIBRARIAN, contacted and agrees with plan of care. Clinical findings: Patient had surgery on 11/01/19 at [facility] due to osteomyelitis of right [...] Not needed. Social Work Focus: Not needed. Soil Field Technician to provide: Not needed. Past Medical History: [...] fatigue documented in this encounter Care Teams Center Maker Hand Relationship Specialty Start Date End Date Provider, Not On File [place] PCP - General 11/06/19 11/26/19 documented as of this encounter
--- OUTSIDE RECORDS SUMMARY | 2024-11-23 10:43 | XMS_ITS | Encounter Summary ---
Author Organization [facility] Address [address] [place] [address] Phone Care Team Providers Care Medical Assistant Ob Gyn Name Role Phone Provider, Not On File Primary Care Provider Unav ailable Provider, None Primary Care Provider Unavailabl e Encounter Details Date Type Department Care Team (Late st Contact Info) Description 11/17/2019 Lab Requisition [facility] [address] [place] [id number] Leonard Jasso, ANGIE [address] [place] [id number] Other chronic osteomyelitis, right tibia and fibula (HCC) Social History Tobacco Use Types Packs/Day Years Used Date Smoking Tobacco: Never Assessed Sex and Gender Information Value Date Recorded Sex Assigned at Not on file Legal Sex Male 4:33 PM AIRPLANE PILOT CHIEF Gender Identity Not on file Sexual Orientation Not on file documented as of this encounter Plan of Treatment Not on file documented as of this encounter Procedures Procedure Name Priority Date/Time Associated Diagnosis Comments CBC WITH AUTO DIFFERENTIAL Routine 11/17/2019 10:43 AM AIRPLANE PILOT CHIEF Other chronic osteomyelitis, right tibia and fibula (HCC) VANCOMYCIN TROUGH Routine 11/17/2019 10: 43 AM AIRPLANE PILOT CHIEF Other chronic osteomyelitis, right tibia and fibula (HCC) CMP (COMPREHENSIVE METABOLIC PANEL) Routine 11/17/2019 10:43 AM AIRPLANE PILOT CHIEF Other chronic osteomyelitis, right tibia and fibula (HCC) COMPLETE BLOOD COUNT (CBC) WITH DIFF Routine 11/17/2019 10:43 AM AIRPLANE PILOT CHIEF Other chronic osteomyelitis, right tibia and fibula (HCC) documented in this encounter Results * CBC WITH AUTO DIFFERENTIAL (11/17/2019 10:43 AM AIRPLANE PILOT CHIEF) WBC 8.05 4.00 - 12.00 10(3)/mcL 11/17/2019 12:18 PM [facility] RBC 5.02 4.40 - 5.80 10(6)/mcL 11/17/2019 12:18 PM [facility] HEMOGLOBIN (HGB) 15.2 13.0 - 16.5 g/dL 11/17/2019 12:18 PM [facility] HEMATOCRIT (HCT) 45.5 38.0 - 50.0 % 11/17/2019 12:18 PM [facility] MCV 90.6 82.0 - 96.0 fL 11/17/2019 12:18 PM [facility] MCH 30.3 26.0 - 32.0 pg 11/17/2019 12:18 PM [facility] MCHC 33.4 31.0 - 36.0 g/dL 11/17/2019 12:18 PM [facility] PLATELET COUNT 210 140 - 440 10(3)/mcL 11/17/2019 12:18 PM [facility] RDW 13.0 11.8 - 15.5 % 11/17/2019 12:18 PM [facility] MPV 10.2 8.0 - 12.6 fL 11/17/2019 12:18 PM [facility] NEUTROPHILS 63.7 40.0 - 68.0 % 11/17/2019 12:18 PM [facility] LYMPHOCYTES 23.9 19.0 - 49.0 % 11/17/2019 12:18 PM [facility] MONOCYTES 9.6 3.0 - 13.0 % 11/17/2019 12:18 PM [facility] EOSINOPHILS 2.7 0.0 - 8.0 % 11/17/2019 12:18 PM [facility] BASOPHILS 0.1 0.0 - 1.0 % 11/17/2019 12:18 PM AIRPLANE PILOT CHIEF [facility] ABSOLUTE NEUTROPHILS 5.13 1.40 - 5.30 10(3)/mcL 11/17/2019 12:18 PM AIRPLANE PILOT CHIEF [facility] ABSOLUTE LYMPHOCYTES 1.92 0.90 - 3.30 10(3)/mcL 11/17/2019 12:18 PM AIRPLANE PILOT CHIEF [facility] ABSOLUTE MONOCYTES 0.77 0.10 - 0.90 10(3)/mcL 11/17/2019 12:18 PM AIRPLANE PILOT CHIEF [facility] ABSOLUTE EOSINOPHIL 0.22 0.00 - 0.50 10(3)/[facility] 11/17/2019 12:18 PM AIRPLANE PILOT CHIEF [facility] ABSOLUTE BASOPHILS 0.01 0.00 - 0.10 10(3)/mcL 11/17/2019 12:18 PM AIRPLANE PILOT CHIEF [facility] Blood specimen (specimen) No Phlebotomy Charged / Unknown 11/17/2019 10:43 AM AIRPLANE PILOT CHIEF 11/17/2019 12:06 PM AIRPLANE PILOT CHIEF Leonard Jasso APRN HEMATOLOGY ORDERABLES F inal Result Performing Organization Address City/[facility]/ZIP Co de Phone Number [address] [address], [place] * VANCOMYCIN TROUGH (11/17/2019 10:43 AM AIRPLANE PILOT CHIEF) VANCOMYCIN, TROUGH 12 10 - 20 mcg/mL 11/17/2019 12:40 PM AIRPLANE PILOT CHIEF [facility] Blood specimen (specimen) No Phlebotomy Charged / Unknown 11/17/2019 10:43 AM AIRPLANE PILOT CHIEF 11/17/2019 12:06 PM AIRPLANE PILOT CHIEF Leonard Jasso BARREL REPAIRER CHEMISTRY ORDERABLES Fi nal Result Performing Organization Address [facility]/ZIP Co de Phone Number [address] [address], [place] * (ABNORMAL) CMP (COMPREHENSIVE METABOLIC PANEL) (11/17/2019 10:43 AM [facility]) SODIUM 137 136 - 145 mmol/L 11/17/2019 12:42 PM [facility] POTASSIUM 4.2 3.5 - 5.1 mmol/L 11/17/2019 12:42 PM [facility] CHLORIDE 105 98 - 107 mmol/L 11/17/2019 12:42 PM [facility] CO2, VENOUS 22 22 - 30 mmol/L 11/17/2019 12:42 PM [facility] ANION GAP 10.0 <18.0 mmol/L 11/17/2019 12:42 PM [facility] GLUCOSE 194(H) 70 - 99 mg/dL 11/17/2019 12:42 PM [facility] BUN 11 8 - 26 mg/dL 11/17/2019 12:42 PM [facility] CREATININE, BLOOD 0.91 0.70 - 1.30 mg/dL 11/17/2019 12:42 PM [facility] BUN/CREATININE RATIO 12 12 - 20 ratio 11/17/2019 12:42 PM [facility] TOTAL PROTEIN 8.1 6.3 - 8.2 g/dL 11/17/2019 12:42 PM [facility] ALBUMIN 4.2 3.5 - 5.0 g/dL 11/17/2019 12:42 PM [facility] A/G RATIO 1.1 1.0 - 2.2 11/17/2019 12:42 PM [facility] CALCIUM 9.3 9.1 - 10.5 mg/dL 11/17/2019 12:42 PM [facility] T BILI 0.7 0.2 - 1.2 mg/dL 11/17/2019 12:42 PM [facility] SGOT (AST) 37(H) 5 - 34 U/L 11/17/2019 12:42 PM [facility] SGPT (ALT) 42 0 - 55 U/L 11/17/2019 12:42 PM [facility] ALKALINE PHOSPHATASE 89 40 - 150 U/L 11/17/2019 12:42 PM AIRPLANE PILOT CHIEF [facility] GFR, EST. NONAFRICAN >60 >=60 11/17/2019 12:42 PM AIRPLANE PILOT CHIEF [facility] GFR, EST. >60 >=60 11/17/2019 12:42 PM AIRPLANE PILOT CHIEF [facility] Comment: Creatinine Clearance is the preferred criteria for selecting drug dose adjustments in renally impaired patients. ??The GFR is provided as additional pertinent clinical information. GFR is reported in mL/min/1.73 sq m. Blood specimen (specimen) No Phlebotomy Charged / Unknown 11/17/2019 10:43 AM AIRPLANE PILOT CHIEF 11/17/2019 12:06 PM AIRPLANE PILOT CHIEF us Leonard Jasso BARREL REPAIRER CHEMISTRY ORDERABLES Fi nal Result [facility] [address] [place] [address], documented in this encounter Visit Diagnoses Diagnosis Other chronic osteomyelitis, right tibia and fibula (HCC) documented in this encounter Care Teams Medical Assistant Ob Gyn Relationship Specialty Start Date End Date Provider, Not On File [place] PCP - General 11/06/19 11/26/19 Provider, None [place] PCP - General 11/27/19 documented as of this encounter
--- OUTSIDE RECORDS SUMMARY | 2024-11-23 10:43 | XMS_ITS | Encounter Summary ---
Author Organization [facility] Address [address] [place] [address] Phone Care Team Providers Care Certified Caregiver Name Role Phone Provider, Not On File Primary Care Provider Unav ailable Provider, None Primary Care Provider Unavailabl e Encounter Details Date Type Department Care Team (Late st Contact Info) Description 11/22/2019 Lab Requisition [facility] Services [address] [place] [id number] Hardy Magdaleno MD [address] [place] [address] Social History Tobacco Use Types Packs/Day Years Used Date Smoking Tobacco: Never Assessed Sex and Gender Information Value Date Recorded Sex Assigned at Not on file Legal Sex Male 4:33 PM DIRECTOR OF INSTITUTIONAL GIVING Gender Identity Not on file Sexual Orientation Not on file documented as of this encounter Plan of Treatment Not on file documented as of this encounter Procedures Procedure Name Priority Date/Time Associated Diagnosis Comments CBC WITH AUTO DIFFERENTIAL Routine 11/22/2019 8:40 AM DIRECTOR OF INSTITUTIONAL GIVING VANCOMYCIN TROUGH Routine 11/22/2019 8:4 0 AM DIRECTOR OF INSTITUTIONAL GIVING CMP (COMPREHENSIVE METABOLIC PANEL) Routine 11/22/2019 8:40 AM DIRECTOR OF INSTITUTIONAL GIVING COMPLETE BLOOD COUNT (CBC) WITH DIFF Routine 11/22/2019 8:40 AM DIRECTOR OF INSTITUTIONAL GIVING documented in this encounter Results * CBC WITH AUTO DIFFERENTIAL (11/22/2019 8:40 AM DIRECTOR OF INSTITUTIONAL GIVING) WBC 7.66 4.00 - 12.00 10(3)/mcL 11/22/2019 11:17 AM [facility] RBC 5.36 4.40 - 5.80 10(6)/mcL 11/22/2019 11:17 AM [facility] HEMOGLOBIN (HGB) 16.1 13.0 - 16.5 g/dL 11/22/2019 11:17 AM [facility] HEMATOCRIT (HCT) 48.5 38.0 - 50.0 % 11/22/2019 11:17 AM [facility] MCV 90.5 82.0 - 96.0 fL 11/22/2019 11:17 AM [facility] MCH 30.0 26.0 - 32.0 pg 11/22/2019 11:17 AM [facility] MCHC 33.2 31.0 - 36.0 g/dL 11/22/2019 11:17 AM [facility] PLATELET COUNT 221 140 - 440 10(3)/mcL 11/22/2019 11:17 AM [facility] RDW 13.0 11.8 - 15.5 % 11/22/2019 11:17 AM [facility] MPV 10.3 8.0 - 12.6 fL 11/22/2019 11:17 AM [facility] NEUTROPHILS 59.9 40.0 - 68.0 % 11/22/2019 11:17 AM [facility] LYMPHOCYTES 26.1 19.0 - 49.0 % 11/22/2019 11:17 AM [facility] MONOCYTES 9.7 3.0 - 13.0 % 11/22/2019 11:17 AM [facility] EOSINOPHILS 4.0 0.0 - 8.0 % 11/22/2019 11:17 AM [facility] BASOPHILS 0.3 0.0 - 1.0 % 11/22/2019 11:17 AM [facility] ABSOLUTE NEUTROPHILS 4.59 1.40 - 5.30 10(3)/mcL 11/22/2019 11:17 AM [facility] ABSOLUTE LYMPHOCYTES 2.00 0.90 - 3.30 10(3)/mcL 11/22/2019 11:17 AM DIRECTOR OF INSTITUTIONAL GIVING [facility] ABSOLUTE MONOCYTES 0.74 0.10 - 0.90 10(3)/mcL 11/22/2019 11:17 AM DIRECTOR OF INSTITUTIONAL GIVING [facility] ABSOLUTE EOSINOPHIL 0.31 0.00 - 0.50 10(3)/[facility] 11/22/2019 11:17 AM DIRECTOR OF INSTITUTIONAL GIVING [facility] ABSOLUTE BASOPHILS 0.02 0.00 - 0.10 10(3)/[facility] 11/22/2019 11:17 AM DIRECTOR OF INSTITUTIONAL GIVING [facility] Blood specimen (specimen) No Phlebotomy Charged / Unknown 11/22/2019 8:40 AM DIRECTOR OF INSTITUTIONAL GIVING 11/22/2019 11:00 AM DIRECTOR OF INSTITUTIONAL GIVING Hardy Magdaleno MD HEMATOLOGY ORDERABLES Fin al Result Performing Organization Address [facility] [place] [address], [place] * VANCOMYCIN TROUGH (11/22/2019 8:40 AM DIRECTOR OF INSTITUTIONAL GIVING) Pathologist [facility] VANCOMYCIN, TROUGH 13 10 - 20 mcg/mL 11/22/2019 11:50 AM [facility] Blood specimen (specimen) No Phlebotomy Charged / Unknown 11/22/2019 8:40 AM DIRECTOR OF INSTITUTIONAL GIVING 11/22/2019 11:00 AM DIRECTOR OF INSTITUTIONAL GIVING Hardy Magdaleno MD CHEMISTRY ORDERABLES Veronica l Result [place] [id number], [place] * (ABNORMAL) CMP (COMPREHENSIVE METABOLIC PANEL) (11/22/2019 8:40 AM DIRECTOR OF INSTITUTIONAL GIVING) SODIUM 140 136 - 145 mmol/L 11/22/2019 11:53 AM [facility] POTASSIUM 4.2 3.5 - 5.1 mmol/L 11/22/2019 11:53 AM [facility] CHLORIDE 103 98 - 107 mmol/L 11/22/2019 11:53 AM [facility] CO2, VENOUS 25 22 - 30 mmol/L 11/22/2019 11:53 AM [facility] ANION GAP 12.0 <18.0 mmol/L 11/22/2019 11:53 AM [facility] GLUCOSE 119(H) 70 - 99 mg/dL 11/22/2019 11:53 AM [facility] BUN 17 8 - 26 mg/dL 11/22/2019 11:53 AM [facility] CREATININE, BLOOD 0.94 0.70 - 1.30 mg/dL 11/22/2019 11:53 AM [facility] BUN/CREATININE RATIO 18 12 - 20 ratio 11/22/2019 11:53 AM [facility] TOTAL PROTEIN 7.9 6.3 - 8.2 g/dL 11/22/2019 11:53 AM [facility] ALBUMIN 4.3 3.5 - 5.0 g/dL 11/22/2019 11:53 AM [facility] A/G RATIO 1.2 1.0 - 2.2 11/22/2019 11:53 AM [facility] CALCIUM 9.5 9.1 - 10.5 mg/dL 11/22/2019 11:53 AM [facility] T BILI 0.5 0.2 - 1.2 mg/dL 11/22/2019 11:53 AM [facility] SGOT (AST) 30 5 - 34 U/L 11/22/2019 11:53 AM [facility] SGPT (ALT) 43 0 - 55 U/L 11/22/2019 11:53 AM [facility] ALKALINE PHOSPHATASE 94 40 - 150 U/L 11/22/2019 11:53 AM [facility] GFR, EST. NONAFRICAN >60 >=60 11/22/2019 11:53 AM [facility] GFR, EST. >60 >=60 11/22/2019 11:53 AM DIRECTOR OF INSTITUTIONAL GIVING [facility] Comment: Creatinine Clearance is the preferred criteria for selecting drug dose adjustments in renally impaired patients. ??The GFR is provided as additional pertinent clinical information. GFR is reported in mL/min/1.73 sq m. Blood specimen (specimen) No Phlebotomy Charged / Unknown 11/22/2019 8:40 AM DIRECTOR OF INSTITUTIONAL GIVING 11/22/2019 11:00 AM DIRECTOR OF INSTITUTIONAL GIVING us Hardy Magdaleno MD CHEMISTRY ORDERABLES Veronica l Result [facility] [address] [place] [address], documented in this encounter Visit Diagnoses Not on filedocumented in this encounter Care Teams Certified Caregiver Relationship Specialty Start Date End Date Provider, Not On File [place] PCP - General 11/06/19 11/26/19 Provider, None [place] PCP - General 11/27/19 documented as of this encounter
--- OUTSIDE RECORDS SUMMARY | 2024-11-23 10:43 | XMS_ITS | Clinical Summary ---
Author Organization [facility] Address [address] [address] Phone Care Team Providers Care Transfer Controller Name Role Phone Provider, None Primary Care [...] on file Legal Sex Male 4:33 PM STEAM FITTER HELPER Gender Identity Not on file Sexual Orientation Not on file Last Filed Vital Signs Vital Sign Reading Time Taken Comments Blood Pressure 124/80 12/18/2019 10:57 AM STEAM FITTER HELPER Pulse 90 12/18/2019 10:57 AM STEAM FITTER HELPER Temperature 36.8 ??C (98.2 ??F) 12/18/2019 10:[address] Respiratory Rate 18 12/18/2019 10:57 AM STEAM FITTER HELPER Oxygen Saturation 97% 12/18/2019 10:57 AM STEAM FITTER HELPER Inhaled Oxygen Concentration - - Weight 86.6 kg (191 lb) 12/16/2019 11:16 AM STEAM FITTER HELPER Height 180.3 cm (5' 11 ) 11/07/2019 9:02 AM STEAM FITTER HELPER Body Mass Index 26.64 11/07/2019 9:02 AM STEAM FITTER HELPER Plan of Treatment Health Maintenance Due Date [...] Inactivated Comments 11/16/2019 10:13 AM Care Teams Transfer Controller Relationship Specialty Start Date End Date Provider, None [place] PCP - General 11/27/19
--- OUTSIDE RECORDS SUMMARY | 2024-11-23 10:43 | XMS_ITS | Encounter Summary ---
Author Organization [facility] Address [address] [place] [address] Phone Care Team Providers Care Truck Despatcher Name Role Phone Provider, None Primary Care Provider Unavailabl e Reason for Visit * Auth/Cert Specialty Diagnoses / Procedures Referred By Celine t Referred To Contact Referral ID Status Reason Start Date Expiration Date Visits Re quested Visits Authorized [id number] 1 1 Encounter Details Date Type Department Care Team (Late st Contact Info) Description [facility] [address] [place] [address] Pushpa Vela V, RN [place] CASE COMMUNICATION Social History Tobacco Use Types Packs/Day Years Used Date Smoking Tobacco: Never Assessed Sex and Gender Information Value Date Recorded Sex Assigned at Not on file Legal Sex Male 4:33 PM WINDOWS DESKTOP SUPPORT Gender Identity Not on file Sexual Orientation Not on file documented as of this encounter Plan of Treatment Not on file documented as of this encounter Visit Diagnoses Not on filedocumented in this encounter Care Teams Truck Despatcher Relationship Specialty Start Date End Date Provider, None [place] PCP - General 11/27/19 documented as of this encounter
--- OUTSIDE RECORDS SUMMARY | 2024-11-23 10:43 | XMS_ITS | Encounter Summary ---
Author Organization [facility] Address [address] [place] [address] Phone Care Team Providers Care Slubber Frame Changer Name Role Phone Provider, Not On File Primary Care Provider Unav ailable Reason for Visit * Auth/Cert Specialty Diagnoses / Procedures Referred By Celine almaguer Referred To Contact Referral ID Status Reason Start Date Expiration Date Visits Re quested Visits Authorized [id number] 1 1 Encounter Details Date Type Department Care Team (Latest Contact Info) Description 11/17/2019 9:00 AM BRACELET MAKER NOVELTY Home Care Visit [facility] [address] [place] [address] Vani Torrez RN [place] SN - INTRAVENOUS VISIT Social History Tobacco Use Types Packs/Day Years Used Date Smoking Tobacco: Never Assessed Sex and Gender Information Value Date Recorded Sex Assigned at Not on file Legal Sex Male 4:33 PM BRACELET MAKER NOVELTY Gender Identity Not on file Sexual Orientation Not on file documented as of this encounter Last Filed Vital Signs Vital Sign Reading Time Taken Comments Blood Pressure 118/78 11/17/2019 9:27 AM BRACELET MAKER NOVELTY Pulse 86 11/17/2019 9:27 AM BRACELET MAKER NOVELTY Temperature 36.6 ??C (97.8 ??F) 11/17/2019 9:27 AM CS T Respiratory Rate 18 11/17/2019 9:27 AM BRACELET MAKER NOVELTY Oxygen Saturation 98% 11/17/2019 9:27 AM BRACELET MAKER NOVELTY Inhaled Oxygen Concentration - - Weight - - Height - - Body Mass Index - - documented in this encounter Plan of Treatment Not on file documented as of this encounter Visit Diagnoses Not on filedocumented in this encounter Home Health Visit - Care Plan Visit Details Visit Type -SN - Intravenous Visit Discipline -Prison Problems Problem Description Start Date Status Goals Interve ntions FALL PREVENTION (O) Disciplines: Prison, Physical Therapy, Occupational Therapy, Speech Language Pathology, Saw Filer, Medical Social Work 11/07/2019 Active 1 goal linked to scheduled/docume nted intervention 2 goal interventions scheduled/documen lobito in this visit HC CARE SUMMARY Disciplines: Prison, Physical Therapy, Occupational Therapy, Speech Language Pathology, Medical Social Work, Licensed Practical Nurse, Respiratory Therapy Care Summary 11/07/2019 Active 1 goal linked to scheduled/docume nted intervention 1 goal intervention scheduled/documen lobito in this visit WOUND CARE EDUCATION Disciplines: Prison Wound Care Education 11/07/2019 Active - 2 problem interventions scheduled/documen lobito in this visit WOUND CARE ORDERS(O) Disciplines: Prison Wound Care Orders 11/07/2019 Active 1 goal linked to scheduled/docume nted intervention 1 goal intervention scheduled/documen lobito in this visit SN LAB ORDER Disciplines: Prison SN Lab Order 11/07/2019 Active - 1 problem intervention scheduled/documen lobito in this visit HC IV EDUCATION Disciplines: Prison IV Education 11/07/2019 Active - 3 problem interventions scheduled/documen lobito in this visit CVC TUNNELED/NON TUNNELED/PICC Disciplines: Prison CVC Tunneled/Non-Benigno neled/PICC 11/07/2019 Active 1 goal linked to scheduled/docume nted intervention 1 goal intervention scheduled/documen lobito in this visit HC CVC TUNNELED/NON-TUNN ELED/PICC CARE Disciplines: Prison CVC Tunneled/Non-Benigno neled/PICC Care 11/07/2019 Active - 2 problem interventions scheduled/documen lobito in this visit PAIN-MANAGEMENT/E DUCATION Disciplines: Prison, Physical Therapy, Occupational Therapy, Speech Language Pathology 11/07/2019 Active 1 goal linked to scheduled/docume nted intervention 1 goal intervention scheduled/documen lobito in this visit SN DISCHARGE Disciplines: Prison SN Discharge 11/07/2019 Active - 2 problem interventions scheduled/documen lobito in this visit HC SN MEDICATION Disciplines: Prison SN Medication 11/07/2019 Active - 2 problem interventions scheduled/documen lobito in this visit SN SOC GENERAL ORDERS Disciplines: Prison SN General Orders 11/07/2019 Active 1 goal linked to scheduled/docume nted intervention 2 goal interventions scheduled/documen lobito in this visit DEPRESSION Disciplines: Prison Depression Risk 11/13/2019 Active 1 goal linked [...] from right hand and took labs to [facility]. Vancomycin dose initiated. Called [facility] and ordered [...] drawn from right hand. Specimen taken to [facility]. IV Education- Potential Complications and Signs and [...] on --- with ---. Dr. Leonard Jasso, EXERCISER, contacted and agrees with plan of care. Clinical findings: Patient had surgery on 11/01/19 at [facility] due to osteomyelitis of right ankle. [...] Not needed. Social Work Focus: Not needed. Saw Filer to provide: Not needed. Past Medical History: [...] visit documented in this encounter Care Teams Slubber Frame Changer Relationship Specialty Start Date End Date Provider, Not On File [place] PCP - General 11/06/19 11/26/19 documented as of this encounter
--- OUTSIDE RECORDS SUMMARY | 2024-11-23 10:43 | XMS_ITS | Encounter Summary ---
Author Organization [facility] Address [address] [place] [address] Phone Care Team Providers Care Machine Packer Name Role Phone Provider, None Primary Care Provider Unavailabl e Reason for Visit * Auth/Cert Specialty Diagnoses / Procedures Referred By Celine almaguer Referred To Contact Referral ID Status Reason Start Date Expiration Date Visits Re quested Visits Authorized [id number] 1 1 Encounter Details Date Type Department Care Team (Late st Contact Info) Description 12/18/2019 10:00 AM WELL REACTIVATOR OPERATOR Home Care Visit [facility] [address] [place] [address] Pushpa Vela V, RN [place] SN - HOME VISIT Social History Tobacco Use Types Packs/Day Years Used Date Smoking Tobacco: Never Assessed Sex and Gender Information Value Date Recorded Sex Assigned at Not on file Legal Sex Male 4:33 PM WELL REACTIVATOR OPERATOR Gender Identity Not on file Sexual Orientation Not on file documented as of this encounter Last Filed Vital Signs Vital Sign Reading Time Taken Comments Blood Pressure 124/80 12/18/2019 10:57 AM WELL REACTIVATOR OPERATOR Pulse 90 12/18/2019 10:57 AM WELL REACTIVATOR OPERATOR Temperature 36.8 ??C (98.2 ??F) 12/18/2019 10:[address] Respiratory Rate 18 12/18/2019 10:57 AM WELL REACTIVATOR OPERATOR Oxygen Saturation 97% 12/18/2019 10:57 AM WELL REACTIVATOR OPERATOR Inhaled Oxygen Concentration - - Weight - - Height - - Body Mass Index - - documented in this encounter Plan of Treatment Not on file documented as of this encounter Visit Diagnoses Not on filedocumented in this encounter Home Health Visit - Care Plan Visit Details Visit Type -SN - Home Health Visit Discipline -Intermediate Problems Problem Description Start Date Status Goals Interve ntions FALL PREVENTION (O) Disciplines: Intermediate, Physical Therapy, Occupational Therapy, Speech Language Pathology, Welt Pocket Machine Operator, Medical Social Work 12/16/2019 Active [...] HC SN MEDICATION Disciplines: Intermediate SN Medication 12/16/2019 Active - 1 problem intervention scheduled/documen lobito in this visit SN SOC GENERAL ORDERS Disciplines: Intermediate SN General Orders 12/16/2019 Active 1 goal linked to scheduled/docume nted intervention 1 goal intervention scheduled/documen lobito in this visit WOUND CARE EDUCATION Disciplines: Intermediate Wound Care Education 12/16/2019 Active - 1 problem intervention scheduled/documen lobito in this visit WOUND CARE ORDERS(O) Disciplines: Intermediate Wound Care Orders 12/16/2019 Active 1 goal linked to scheduled/docume nted intervention 1 goal intervention scheduled/documen lobito in this visit WOUND CARE ORDERS(O) Disciplines: Intermediate Wound Care Orders 12/16/2019 Active 1 goal linked to scheduled/docume nted intervention 1 goal intervention scheduled/documen lobito in this visit HC SN RESUMPTION OF CARE (SURINDER) Disciplines: Intermediate 12/16/2019 Active 1 goal linked to scheduled/docume [...] treat for: refused Social Work Focus: refused Welt Pocket Machine Operator to provide: refused Past Medical [...] treat for: refused Social Work Focus: refused Welt Pocket Machine Operator to provide: refused Past Medical [...] Scheduled documented in this encounter Care Teams Machine Packer Relationship Specialty Start Date End Date Provider, None REAL PCP - General 11/27/19 documented as of this encounter
--- OUTSIDE RECORDS SUMMARY | 2024-11-23 10:43 | XMS_ITS | Encounter Summary ---
Author Organization [facility] Address [address] [place] [address] Phone Care Team Providers Care Film Critic Name Role Phone Provider, None Primary Care Provider Unavailabl e Reason for Visit * Auth/Cert Specialty Diagnoses / Procedures Referred By Celine almaguer Referred To Contact Referral ID Status Reason Start Date Expiration Date Visits Re quested Visits Authorized [id number] 1 1 Encounter Details Date Type Department Care Team (Latest Contact Info) Description 11/27/2019 7:00 AM HEALTH INSURANCE ASSESSOR Home Care Visit [facility] [address] [place] [address] Pushpa Vela V, RN [place] SN - INTRAVENOUS VISIT Discharge Disposition: Discharged to home or Selfcare Social History Tobacco Use Types Packs/Day Years Used Date Smoking Tobacco: Never Assessed Sex and Gender Information Value Date Recorded Sex Assigned at Not on file Legal Sex Male 4:33 PM HEALTH INSURANCE ASSESSOR Gender Identity Not on file Sexual Orientation Not on file documented as of this encounter Last Filed Vital Signs Vital Sign Reading Time Taken Comments Blood Pressure 140/70 11/27/2019 8:31 AM HEALTH INSURANCE ASSESSOR Pulse 86 11/27/2019 8:31 AM HEALTH INSURANCE ASSESSOR Temperature 36.5 ??C (97.7 ??F) 11/27/2019 8:31 AM CS T Respiratory Rate 18 11/27/2019 8:31 AM HEALTH INSURANCE ASSESSOR Oxygen Saturation 98% 11/27/2019 8:31 AM HEALTH INSURANCE ASSESSOR Inhaled Oxygen Concentration - - Weight - - Height - - Body Mass Index - - documented in this encounter Plan of Treatment Not on file documented as of this encounter Visit Diagnoses Not on filedocumented in this encounter Home Health Visit - Care Plan Visit Details Visit Type -SN - Intravenous Visit Discipline -Group Home Problems Problem Description Start Date Status Goals Interve ntions FALL PREVENTION (O) Disciplines: Group Home, Physical Therapy, Occupational Therapy, Speech Language Pathology, Psychiatric Rn, Medical Social Work 11/07/2019 Active 1 goal [...] Home Wound Care Education 11/07/2019 Active - 1 [...] Group Home SN Medication 11/07/2019 Active - 1 [...] on --- with ---. Dr. Leonard Jasso, MATERIALS RESEARCH ENGINEER, contacted and agrees with plan of care. Clinical findings: Patient had surgery on 11/01/19 at [facility] due to osteomyelitis of right [...] Not needed. Social Work Focus: Not needed. Psychiatric Rn to provide: Not needed. Past Medical History: [...] fatigue documented in this encounter Care Teams Film Critic Relationship Specialty Start Date End Date Provider, None [place] PCP - General 11/27/19 documented as of this encounter
--- OUTSIDE RECORDS SUMMARY | 2024-11-23 10:43 | XMS_ITS | Encounter Summary ---
Author Organization [facility] Address [address] [place] [address] Phone Care Team Providers Care Shredder Operator Name Role Phone Provider, None Primary Care Provider Unavailabl e Encounter Details Date Type Department Care Team (Late st Contact Info) Description 11/27/2019 Transcribe Orders [facility] Admitting [address] [place] [address] Leonard Jasso, ANGIE [address] [place] [id number] [facility] (current) use of antibiotics (Primary Dx) Social History Tobacco Use Types Packs/Day Years Used Date Smoking Tobacco: Never Assessed Sex and Gender Information Value Date Recorded Sex Assigned at Not on file Legal Sex Male 4:33 PM ACCOUNTING COORDINATOR Gender Identity Not on file Sexual Orientation Not on file documented as of this encounter Plan of Treatment Not on file documented as of this encounter Results * (ABNORMAL) CMP (COMPREHENSIVE METABOLIC PANEL) (11/27/2019 8:45 AM ACCOUNTING COORDINATOR) SODIUM 139 136 - 145 mmol/L 11/27/2019 4:26 PM ACCOUNTING COORDINATOR [facility] POTASSIUM 4.2 3.5 - 5.1 mmol/L 11/27/2019 4:26 PM ACCOUNTING COORDINATOR [facility] CHLORIDE 106 98 - 107 mmol/L 11/27/2019 4:26 PM ACCOUNTING COORDINATOR [facility] CO2, VENOUS 25 22 - 30 mmol/L 11/27/2019 4:26 PM ACCOUNTING COORDINATOR [facility] ANION GAP 8.0 <18.0 mmol/L 11/27/2019 4:26 PM [facility] GLUCOSE 107(H) 70 - 99 mg/dL 11/27/2019 4:26 PM [facility] BUN 12 8 - 26 mg/dL 11/27/2019 4:26 PM [facility] CREATININE, BLOOD 0.85 0.70 - 1.30 mg/dL 11/27/2019 4:26 PM [facility] BUN/CREATININE RATIO 14 12 - 20 ratio 11/27/2019 4:26 PM [facility] TOTAL PROTEIN 7.1 6.3 - 8.2 g/dL 11/27/2019 4:26 PM [facility] ALBUMIN 4.1 3.5 - 5.0 g/dL 11/27/2019 4:26 PM [facility] A/G RATIO 1.4 1.0 - 2.2 11/27/2019 4:26 PM [facility] CALCIUM 8.9(L) 9.1 - 10.5 mg/dL 11/27/2019 4:26 PM [facility] T BILI 0.5 0.2 - 1.2 mg/dL 11/27/2019 4:26 PM [facility] SGOT (AST) 28 5 - 34 U/L 11/27/2019 4:26 PM [facility] SGPT (ALT) 26 0 - 55 U/L 11/27/2019 4:26 PM [facility] ALKALINE PHOSPHATASE 77 40 - 150 U/L 11/27/2019 4:26 PM [facility] GFR, EST. NONAFRICAN >60 >=60 11/27/2019 4:26 PM [facility] GFR, EST. >60 >=60 11/27/2019 4:26 PM [facility] Comment: Creatinine Clearance is the preferred criteria for selecting drug dose adjustments in renally impaired patients. ??The GFR is provided as additional pertinent clinical information. GFR is reported in mL/min/1.73 sq m. Blood specimen (specimen) No Phlebotomy Charged / Unknown 11/27/2019 8:45 AM ACCOUNTING COORDINATOR 11/27/2019 3:45 PM ACCOUNTING COORDINATOR Leonard Jasso APRN CHEMISTRY ORDERABLES Fi nal Result Performing Organization Address [facility] Co de Phone Number [address] [address], [place] [phone] * VANCOMYCIN TROUGH (11/27/2019 8:45 AM ACCOUNTING COORDINATOR) VANCOMYCIN, TROUGH 16 10 - 20 mcg/mL 11/27/2019 4:26 PM ACCOUNTING COORDINATOR [facility] Blood specimen (specimen) No Phlebotomy Charged / Unknown 11/27/2019 8:45 AM ACCOUNTING COORDINATOR 11/27/2019 3:45 PM ACCOUNTING COORDINATOR Leonard Jasso APRN CHEMISTRY ORDERABLES Fi nal Result Performing Organization Address [facility] de Phone Number [id number] [place] [address], [place] [phone] documented in this encounter Visit Diagnoses Diagnosis [facility] (current) use of antibiotics- Primary documented in this encounter Care Teams Shredder Operator Relationship Specialty Start Date End Date Provider, None [place] PCP - General 11/27/19 documented as of this encounter
--- OUTSIDE RECORDS SUMMARY | 2024-11-23 10:43 | XMS_ITS | Encounter Summary ---
Author Organization [facility] Address [address] [place] [address] Phone Care Team Providers Care Insurance Licensing Supervisor Name Role Phone Provider, None Primary Care Provider Unavailabl e Encounter Details Date Type Department Care Team (Late st Contact Info) Description 11/27/2019 10:15 AM PRODUCTION LABORER Lab [facility] [address] [place] [address] Leonard Jasso, ANGIE [address] [place] [address] superintendent terminal (current) use of antibiotics Discharge Disposition: Discharged to home or Selfcare Social History Tobacco Use Types Packs/Day Years Used Date Smoking Tobacco: Never Assessed Sex and Gender Information Value Date Recorded Sex Assigned at Not on file Legal Sex Male 4:33 PM PRODUCTION LABORER Gender Identity Not on file Sexual Orientation Not on file documented as of this encounter Plan of Treatment Not on file documented as of this encounter Procedures Procedure Name Priority Date/Time Associated Diagnosis Comments CBC WITH AUTO DIFFERENTIAL Routine 11/27/2019 8:45 AM PRODUCTION LABORER superintendent terminal (current) use of antibiotics VANCOMYCIN TROUGH Routine 11/27/2019 8:4 5 AM PRODUCTION LABORER superintendent terminal (current) use of antibiotics CMP (COMPREHENSIVE METABOLIC PANEL) Routine 11/27/2019 8:45 AM PRODUCTION LABORER superintendent terminal (current) use of antibiotics COMPLETE BLOOD COUNT (CBC) WITH DIFF Routine 11/27/2019 8:45 AM PRODUCTION LABORER superintendent terminal (current) use of antibiotics documented in this encounter Results * CBC WITH AUTO DIFFERENTIAL (11/27/2019 8:45 AM PRODUCTION LABORER) WBC 5.71 4.00 - 12.00 10(3)/mcL 11/27/2019 5:44 PM [facility] RBC 4.61 4.40 - 5.80 10(6)/mcL 11/27/2019 5:44 PM [facility] HEMOGLOBIN (HGB) 14.0 13.0 - 16.5 g/dL 11/27/2019 5:44 PM [facility] HEMATOCRIT (HCT) 42.6 38.0 - 50.0 % 11/27/2019 5:44 PM [facility] MCV 92.4 82.0 - 96.0 fL 11/27/2019 5:44 PM [facility] MCH 30.4 26.0 - 32.0 pg 11/27/2019 5:44 PM [facility] MCHC 32.9 31.0 - 36.0 g/dL 11/27/2019 5:44 PM [facility] PLATELET COUNT 198 140 - 440 10(3)/mcL 11/27/2019 5:44 PM [facility] RDW 12.5 11.8 - 15.5 % 11/27/2019 5:44 PM [facility] MPV 10.8 8.0 - 12.6 fL 11/27/2019 5:44 PM [facility] NEUTROPHILS 53.5 40.0 - 68.0 % 11/27/2019 5:44 PM [facility] LYMPHOCYTES 29.2 19.0 - 49.0 % 11/27/2019 5:44 PM [facility] MONOCYTES 11.6 3.0 - 13.0 % 11/27/2019 5:44 PM [facility] EOSINOPHILS 5.3 0.0 - 8.0 % 11/27/2019 5:44 PM [facility] BASOPHILS 0.4 0.0 - 1.0 % 11/27/2019 5:44 PM [facility] ABSOLUTE NEUTROPHILS 3.06 1.40 - 5.30 10(3)/mcL 11/27/2019 5:44 PM PRODUCTION LABORER [facility] ABSOLUTE LYMPHOCYTES 1.67 0.90 - 3.30 10(3)/mcL 11/27/2019 5:44 PM [facility] ABSOLUTE MONOCYTES 0.66 0.10 - 0.90 10(3)/mcL 11/27/2019 5:44 PM [facility] ABSOLUTE EOSINOPHIL 0.30 0.00 - 0.50 10(3)/[facility] 11/27/2019 5:44 PM [facility] ABSOLUTE BASOPHILS 0.02 0.00 - 0.10 10(3)/[facility] 11/27/2019 5:44 PM [facility] NRBC PER 100 WBC 0 11/27/19 20 5:44 PM [facility] RESULTS ARE CONSISTENT WITH PERIPHERAL SMEAR REVIEW Yes 11/27/2019 5:44 PM [facility] RBC MORPHOLOGY CONSISTENT WITH INDICES Yes 11/27/2019 5:44 PM [facility] LARGE PLATELETS 1+ 0 5:44 PM [facility] Blood specimen (specimen) No Phlebotomy Charged / Unknown 11/27/2019 8:45 AM PRODUCTION LABORER 11/27/2019 3:45 PM PRODUCTION LABORER Narrative [facility] - 11/27/2019 5:44 PM PRODUCTION LABORER Few platelet clumps. us Leonard Jasso APRN HEMATOLOGY ORDERABLES F inal Result [facility] [address] [place] [address], * (ABNORMAL) CMP (COMPREHENSIVE METABOLIC PANEL) (11/27/2019 8:45 AM PRODUCTION LABORER) SODIUM 139 136 - 145 mmol/L 11/27/2019 4:26 PM [facility] POTASSIUM 4.2 3.5 - 5.1 mmol/L 11/27/2019 4:26 PM [facility] CHLORIDE 106 98 - 107 mmol/L 11/27/2019 4:26 PM [facility] CO2, VENOUS 25 22 - 30 mmol/L 11/27/2019 4:26 PM [facility] ANION GAP 8.0 <18.0 mmol/L 11/27/2019 4:26 PM [facility] GLUCOSE 107(H) 70 - 99 mg/dL 11/27/2019 4:26 PM [facility] BUN 12 8 - 26 mg/dL 11/27/2019 4:26 PM [facility] CREATININE, BLOOD 0.85 0.70 - 1.30 mg/dL 11/27/2019 4:26 PM [facility] BUN/CREATININE RATIO 14 12 - 20 ratio 11/27/2019 4:26 PM [facility] TOTAL PROTEIN 7.1 6.3 - 8.2 g/dL 11/27/2019 4:26 PM [facility] ALBUMIN 4.1 3.5 - 5.0 g/dL 11/27/2019 4:26 PM [facility] A/G RATIO 1.4 1.0 - 2.2 11/27/2019 4:26 PM [facility] CALCIUM 8.9(L) 9.1 - 10.5 mg/dL 11/27/2019 4:26 PM [facility] T BILI 0.5 0.2 - 1.2 mg/dL 11/27/2019 4:26 PM [facility] SGOT (AST) 28 5 - 34 U/L 11/27/2019 4:26 PM [facility] SGPT (ALT) 26 0 - 55 U/L 11/27/2019 4:26 PM [facility] ALKALINE PHOSPHATASE 77 40 - 150 U/L 11/27/2019 4:26 PM [facility] GFR, EST. NONAFRICAN >60 >=60 11/27/2019 4:26 PM [facility] GFR, EST. >60 >=60 11/27/2019 4:26 PM [facility] Comment: Creatinine Clearance is the preferred criteria for selecting drug dose adjustments in renally impaired patients. ??The GFR is provided as additional pertinent clinical information. GFR is reported in mL/min/1.73 sq m. Blood specimen (specimen) No Phlebotomy Charged / Unknown 11/27/2019 8:45 AM PRODUCTION LABORER 11/27/2019 3:45 PM PRODUCTION LABORER Leonard Jasso APRN CHEMISTRY ORDERABLES Fi nal Result Performing Organization Address [facility] Co de Phone Number [address] [address], [place] [phone] * VANCOMYCIN TROUGH (11/27/2019 8:45 AM PRODUCTION LABORER) VANCOMYCIN, TROUGH 16 10 - 20 mcg/mL 11/27/2019 4:26 PM PRODUCTION LABORER [facility] Blood specimen (specimen) No Phlebotomy Charged / Unknown 11/27/2019 8:45 AM PRODUCTION LABORER 11/27/2019 3:45 PM PRODUCTION LABORER Leonard Jasso APRN CHEMISTRY ORDERABLES Fi nal Result Performing Organization Address [facility] Co de Phone Number [address] [address], [place] [phone] documented in this encounter Visit Diagnoses Diagnosis superintendent terminal (current) use of antibiotics documented in this encounter Care Teams Insurance Licensing Supervisor Relationship Specialty Start Date End Date Provider, None [place] PCP - General 11/27/19 documented as of this encounter
--- OUTSIDE RECORDS SUMMARY | 2024-11-23 10:43 | XMS_ITS | Encounter Summary ---
Author Organization [facility] Address [address] [place] [address] Phone Care Team Providers Care Vendor Representatives Name Role Phone Provider, None Primary Care Provider Unavailabl e Reason for Visit * Auth/Cert Specialty Diagnoses / Procedures Referred By Celine almaguer Referred To Contact Referral ID Status Reason Start Date Expiration Date Visits Re quested Visits Authorized [id number] 1 1 Encounter Details Date Type Department Care Team ([facility] st Contact Info) Description 12/29/2019 [facility] [address] [place] [address] Pushpa Vela V, RN [place] SN - OASIS DISCHARGE Discharge Disposition: Discharged to home or Selfcare Social History Tobacco Use Types Packs/Day Years Used Date Smoking Tobacco: Never Assessed Sex and Gender Information Value Date Recorded Sex Assigned at Not on file Legal Sex Male 4:33 PM POSTDOCTORAL SCHOLAR Gender Identity Not on file Sexual Orientation Not on file documented as of this encounter Plan of Treatment Not on file documented as of this encounter Visit Diagnoses Not on filedocumented in this encounter Home Health Visit - Care Plan Visit Details Visit Type -SN - OASIS DISCH ARGE Discipline -Usp Problems Problem Description Start Date Status Goals Interve ntions FALL PREVENTION (O) Disciplines: Usp, Physical Therapy, Occupational Therapy, Speech Language Pathology, Occupational Therapist Rehab Manager, Medical Social Work 12/16/2019 Active 1 goal linked to scheduled/docume nted intervention 1 goal intervention scheduled/documen lobito in this visit HC CARE SUMMARY Disciplines: Usp, Physical Therapy, Occupational Therapy, Speech Language Pathology, Medical Social Work, Licensed Practical Nurse, Respiratory Therapy Care Summary 12/16/2019 Active 1 goal linked to scheduled/docume nted intervention 1 goal intervention scheduled/documen lobito in this visit HC SN MEDICATION Disciplines: Usp SN Medication 12/16/2019 Active - 1 problem intervention scheduled/documen lobito in this visit WOUND CARE ORDERS(O) Disciplines: Usp Wound Care Orders 12/16/2019 Active 1 goal linked to scheduled/docume nted intervention 1 goal intervention scheduled/documen lobito in this visit WOUND CARE ORDERS(O) Disciplines: Usp Wound Care Orders 12/16/2019 Active 1 goal linked to scheduled/docume nted intervention 1 goal intervention scheduled/documen lobito in this visit HC SN RESUMPTION OF CARE (SURINDER) Disciplines: Usp SN Resumption of Care 12/16/2019 Active 1 [...] Target date: by discharge. 3. Patient Centered Track Grinder Goal: wound to heal. Target date: by [...] treat for: refused Social Work Focus: refused Occupational Therapist Rehab Manager to provide: refused Past Medical History: [...] (O) Description: 64 y.o male admitted to [facility] for bone infection from 11/11 to 11/14 Resumption of Home Care Services for wound care and assessment Dr. Magdaleno contacted and agrees with plan of care. Clinical findings: patient was admitted to [facility] for a wound infection, He had [...] Therapy Focus: refused Social Work Focus: refused Occupational Therapist Rehab Manager Focus: refused Past Medical History: refused Other [...] Scheduled documented in this encounter Care Teams Vendor Representatives Relationship Specialty Start Date End Date Provider, None REAL PCP - General 11/27/19 documented as of this encounter
--- OUTSIDE RECORDS SUMMARY | 2024-11-23 10:43 | XMS_ITS | Encounter Summary ---
Author Organization [facility] Address [address] [place] [address] Phone Care Team Providers Care Hot Tar Roofer Name Role Phone Provider, None Primary Care Provider Unavailabl e Reason for Visit * Auth/Cert Specialty Diagnoses / Procedures Referred By Celine almaguer Referred To Contact Referral ID Status Reason Start Date Expiration Date Visits Re quested Visits Authorized [id number] 1 1 Encounter Details Date Type Department Care Team ([facility] st Contact Info) Description 11/28/2019 [facility] [address] [place] [address] Verónica Harp, RN [place] CASE COMMUNICATION Social History Tobacco Use Types Packs/Day Years Used Date Smoking Tobacco: Never Assessed Sex and Gender Information Value Date Recorded Sex Assigned at Not on file Legal Sex Male 4:33 PM RESTRICTIVE PREPARATION OPERATOR Gender Identity Not on file Sexual Orientation Not on file documented as of this encounter Plan of Treatment Not on file documented as of this encounter Visit Diagnoses Not on filedocumented in this encounter Care Teams Hot Tar Roofer Relationship Specialty Start Date End Date Provider, None [place] PCP - General 11/27/19 documented as of this encounter
--- OUTSIDE RECORDS SUMMARY | 2024-11-23 10:43 | XMS_ITS | Encounter Summary ---
Author Organization [facility] Address [address] [place] [address] Phone Care Team Providers Care Senior Bi Developer Name Role Phone Provider, None Primary Care Provider Unavailabl e Reason for Visit * Auth/Cert Specialty Diagnoses / Procedures Referred By Celine almaguer Referred To Contact Referral ID Status Reason Start Date Expiration Date Visits Re quested Visits Authorized [id number] 1 1 Encounter Details Date Type Department Care Team ([facility] Contact Info) Description 12/04/2019 Home Care Visit [facility] [address] [place] [address] Yanira Tineo, RN [place] SN - OASIS TRANSFER W/OUT DC Social History Tobacco Use Types Packs/Day Years Used Date Smoking Tobacco: Never Assessed Sex and Gender Information Value Date Recorded Sex Assigned at Not on file Legal Sex Male 4:33 PM GLUER MACHINE SETUP OPERATOR Gender Identity Not on file Sexual Orientation Not on file documented as of this encounter Plan of Treatment Not on file documented as of this encounter Visit Diagnoses Not on filedocumented in this encounter Home Health Visit - Care Plan Visit Details Visit Type -SN - OASIS TRANS W/OUT DC Discipline -Mcc Problems Problem Description Start Date Status Goals Interve ntions FALL PREVENTION (O) Disciplines: Mcc, Physical Therapy, Occupational Therapy, Speech Language Pathology, Regulatory Specialist, Medical Social Work 11/15/2019 Active 1 goal [...] SN MEDICATION Disciplines: Mcc SN Medication 11/15/2019 Active - 1 problem intervention scheduled/documen lobito in this visit SN SOC GENERAL ORDERS Disciplines: Mcc SN General Orders 11/15/2019 Active 1 goal linked to scheduled/docume nted intervention 1 goal intervention scheduled/documen lobito in this visit CVC TUNNELED/NON TUNNELED/PICC Disciplines: Mcc CVC Tunneled/Non-Benigno neled/PICC 11/15/2019 Active 1 goal linked to scheduled/docume nted intervention 1 goal intervention scheduled/documen lobito in this visit HC CVC TUNNELED/NON-TUNN ELED/PICC CARE Disciplines: Mcc CVC Tunneled/Non-Benigno neled/PICC Care 11/15/2019 Active - 3 problem interventions scheduled/documen lobito in this visit WOUND CARE ORDERS(O) Disciplines: Mcc Wound Care Orders 11/15/2019 Active 1 goal [...] Not needed. Social Work Focus: Not needed. Regulatory Specialist to provide: Not needed. Past Medical [...] Scheduled documented in this encounter Care Teams Senior Bi Developer Relationship Specialty Start Date End Date Provider, None [place] PCP - General 11/27/19 documented as of this encounter
--- OUTSIDE RECORDS SUMMARY | 2024-11-23 10:43 | XMS_ITS | Encounter Summary ---
Author Organization [email or web address] Care Team Providers Care Cook Specialty Name Role Phone Provider, None Primary Care Provider Unavailabl e Encounter Details Date Type Department Care Team (Latest Contact Info) Description 11/27/2019 Travel Social History Tobacco Use Types Packs/Day Years Used Date Smoking Tobacco: Never Assessed Sex and Gender Information Value Date Recorded Sex Assigned at Not on file Legal Sex Male 4:33 PM WEB DEVELOPMENT INTERN Gender Identity Not on file Sexual Orientation Not on file documented as of this encounter Plan of Treatment Not on file documented as of this encounter Visit Diagnoses Not on filedocumented in this encounter Care Teams Cook Specialty Relationship Specialty Start Date End Date Provider, None [place] PCP - General 11/27/19 documented as of this encounter
--- OUTSIDE RECORDS SUMMARY | 2024-11-23 10:44 | XMS_ITS | Encounter Summary ---
Author Organization [facility] Address [address] [place] [address] Care Team Providers Care Cigarette Machines Mechanic Name Role Phone Asael Barajas DO [...] (Late Contact Info) Description 12/15/2024 3:20 PM CLINICAL REHABILITATION COORDINATOR Office Visit [facility] Spine and Pain Management [address] [place] [phone] Osman Wolfe MD 1390 [facility] 61 [facility] [address] [place] [address] documented as of this encounter Visit Diagnoses Not on filedocumented in this encounter Care Teams Cigarette Machines Mechanic Relationship Specialty Start Date End Date Asael Barajas DO 1390 [facility] [address] [place] [phone] PCP - General Internal Medicine 10/01/23 08/09/24 documented as of this encounter
--- OUTSIDE RECORDS SUMMARY | 2024-11-23 10:44 | XMS_ITS | Encounter Summary ---
Author Organization [facility] Address [address] [place] [address] Care Team Providers Care Straight Cutter Machine Name Role Phone Carlos Enrique Obando MD [...] (Late Contact Info) Description 12/15/2024 3:20 PM ORGAN PIPE FINISHER Office Visit [facility] Spine and Pain Management [address] [place] [phone] Osman Wolfe MD [address] [place] [address] documented as of this encounter Visit Diagnoses Not on filedocumented in this encounter Care Teams Straight Cutter Machine Relationship Specialty Start Date End Date Carlos Enrique Obando MD [address] [place] [address] PCP - General Family Practice 08/10/24 documented as of this encounter
--- OUTSIDE RECORDS SUMMARY | 2024-11-23 10:44 | XMS_ITS | Encounter Summary ---
Author Organization [facility] Address [address] [place] [address] Care Team Providers Care Disk Sander Name Role Phone Asael Barajas DO Primary [...] (Late Contact Info) Description 12/15/2024 3:20 PM MANAGER BEHAVIORAL Office Visit [facility] Spine and Pain Management [address] [place] [phone] Osman Wolfe MD 1390 [facility] 61 [facility] [address] [place] [address] documented as of this encounter Visit Diagnoses Not on filedocumented in this encounter Care Teams Disk Sander Relationship Specialty Start Date End Date Asael Barajas DO 1390 [facility] [address] [place] [phone] PCP - General Internal Medicine 10/01/23 08/09/24 documented as of this encounter
--- OUTSIDE RECORDS SUMMARY | 2024-11-23 10:44 | XMS_ITS | Encounter Summary ---
Author Organization [facility] Address [address] [place] [address] Care Team Providers Care Track Repair Person Name Role Phone Asael Barajas DO Primary Care Provider [phone] Encounter Details Date Type Department Care Team [...] (Late Contact Info) Description 12/15/2024 3:20 PM ELEMENTARY ESL TEACHER Office Visit [facility] Spine and Pain Management [address] [place] [phone] Osman Wolfe MD 1390 [facility] 61 [facility] [address] [place] [address] documented as of this encounter Visit Diagnoses Not on filedocumented in this encounter Care Teams Track Repair Person Relationship Specialty Start Date End Date Asael Barajas DO 1390 [facility] [address] [place] [phone] PCP - General Internal Medicine 10/01/23 08/09/24 documented as of this encounter
--- OUTSIDE RECORDS SUMMARY | 2024-11-23 10:44 | XMS_ITS | Encounter Summary ---
Author Organization [facility] Address [address] [place] [address] Care Team Providers Care Fabrication Engineer Name Role Phone Asael Barajas DO Primary Care Provider [phone] Encounter Details Date Type Department Care Team [...] (Late Contact Info) Description 12/15/2024 3:20 PM COMMUTATOR OPERATOR Office Visit [facility] Spine and Pain Management [address] [place] [phone] Osman Wolfe MD 1390 [facility] 61 [facility] [address] [place] [address] documented as of this encounter Visit Diagnoses Not on filedocumented in this encounter Care Teams Fabrication Engineer Relationship Specialty Start Date End Date Asael Barajas DO 1390 [facility] [place] [facility] [address] [place] [phone] PCP - General Internal Medicine 10/01/23 08/09/24 documented as of this encounter
--- OUTSIDE RECORDS SUMMARY | 2024-11-23 10:44 | XMS_ITS | Encounter Summary ---
Author Organization [facility] Address [address] [place] [address] Care Team Providers Care Wash Driller Name Role Phone Asael Barajas DO Primary Care Provider [phone] Encounter Details Date Type Department Care Team [...] (Late Contact Info) Description 12/15/2024 3:20 PM CLEATER Office Visit [facility] Spine and Pain Management [address] [place] [phone] Osman Wolfe MD 1390 [facility] 61 [facility] [address] [place] [address] documented as of this encounter Visit Diagnoses Not on filedocumented in this encounter Care Teams Wash Driller Relationship Specialty Start Date End Date Asael Barajas DO 1390 [facility] [address] [place] [phone] PCP - General Internal Medicine 10/01/23 08/09/24 documented as of this encounter
--- OUTSIDE RECORDS SUMMARY | 2024-11-23 10:44 | XMS_ITS | Encounter Summary ---
Author Organization [facility] Address [address] [place] [address] Care Team Providers Care Civil Laboratory Technician Name Role Phone Asael Barajas DO [...] (Late Contact Info) Description 12/15/2024 3:20 PM HOME COMPANION Office Visit [facility] Spine and Pain Management [address] [place] [phone] Osman Wolfe MD 1390 [facility] 61 [facility] [address] [place] [address] documented as of this encounter Visit Diagnoses Not on filedocumented in this encounter Care Teams Civil Laboratory Technician Relationship Specialty Start Date End Date Asael Barajas DO 1390 [facility] [address] [place] [phone] PCP - General Internal Medicine 10/01/23 08/09/24 documented as of this encounter
--- OUTSIDE RECORDS SUMMARY | 2024-11-23 10:44 | XMS_ITS | Encounter Summary ---
Author Organization [facility] Address [address] [place] [address] Care Team Providers Care Extruder Operator Vertical Name Role Phone Asael Barajas DO Primary [...] (Late Contact Info) Description 12/15/2024 3:20 PM CONTACT LENS CURVE GRINDER Office Visit [facility] Spine and Pain Management [address] [place] [phone] Osman Wolfe MD 1390 [facility] 61 [facility] [address] [place] [address] documented as of this encounter Visit Diagnoses Not on filedocumented in this encounter Care Teams Extruder Operator Vertical Relationship Specialty Start Date End Date Asael Barajas DO 1390 [facility] [address] [place] [phone] PCP - General Internal Medicine 10/01/23 08/09/24 documented as of this encounter
--- OUTSIDE RECORDS SUMMARY | 2024-11-23 10:45 | XMS_ITS | Encounter Summary ---
Author Organization [employer] Address [address] [place] [address] Care Team Providers Care Movie Extra Name Role Phone Asael Barajas DO Primary Care Provider [phone] Reason for Visit * Reason Onset Date Comments [employer] [facility] 02/09/2024 Encounter Details Date Type Department Care Team (Late st Contact Info) Description 02/09/2024 [facility]phone [facility] [address] [place] [address] Nona Beck, RN [facility] - Biomolecular Determination [facility] Social History Tobacco Use Types Packs/Day [...] Beck RN - 02/09/2024 6:11 PM CDT [employer] Interaction Note: Service Line: [email or web address] Chief Complaint: pain Assessment: Called patient regarding [...] st Contact Info) Description 12/15/2024 3:20 PM SUPERVISOR MICROWAVE Office Visit [facility] Spine [facility] Pain Management [address] [place] [address] Osman Wolfe MD [address] [place] [address] [address] [place] [address] documented as of this encounter Visit Diagnoses Not on filedocumented in this encounter Care Teams Movie Extra Relationship Specialty Start Date End Date Asael Barajas DO [address] [place] [address] [address] [place] [address] PCP - General Internal Medicine 10/01/23 08/09/24 documented as of this encounter
--- OUTSIDE RECORDS SUMMARY | 2024-11-23 10:45 | XMS_ITS | Encounter Summary ---
Author Organization [facility] Address [address] [place] [address] Care Team Providers Care Shadow Graph Weight Operator Name Role Phone Asael Barajas DO Primary Care Provider [phone] Encounter Details Date Type Department Care Team [...] (Late Contact Info) Description 12/15/2024 3:20 PM SALES OPERATIONS ANALYST Office Visit [facility] Spine and Pain Management [address] [place] [phone] Osman Wolfe MD [address] [place] [phone] documented as of this encounter Visit Diagnoses Not on filedocumented in this encounter Care Teams Shadow Graph Weight Operator Relationship Specialty Start [place] [address] [place] [address] [address] [place] [phone] PCP - General Internal Medicine 10/01/23 08/09/24 documented as of this encounter
--- OUTSIDE RECORDS SUMMARY | 2024-11-23 10:45 | XMS_ITS | Encounter Summary ---
Author Organization [facility] Address [address] Sim: [place] [address] Care Team Providers Care General Operations Manager Name Role Phone Asael Barajas DO Primary Care Provider [phone] Encounter Details Date Type Department Care Team (Late Contact Info) Description 03/22/2024 External Device Data Initial Department [address] SIM: [place] [address] Demetrio Downing Md Social History Tobacco Use [...] (Late Contact Info) Description 12/15/2024 3:20 PM GEOTHERMAL PLANT MANAGER Office Visit [facility] Spine and Pain Management [place] [address] [place] [address] Osman Wolfe MD [address] [place] [address] documented as of this encounter Visit Diagnoses Not on filedocumented in this encounter Care Teams General Operations Manager Relationship Specialty Start Date End Date Asael Barajas DO 1393 [facility] [address] [address] PCP - General Internal Medicine 10/01/23 08/09/24 documented as of this encounter
--- OUTSIDE RECORDS SUMMARY | 2024-11-23 10:45 | XMS_ITS | Encounter Summary ---
Author Organization [facility] Address [address] [place] [address] Care Team Providers Care Hog Counter Name Role Phone Asael Barajas DO Primary Care Provider Reason for Visit * Reason Onset Date Comments [facility] 02/15/2024 Encounter Details Date Type Department Care Team (Late st Contact Info) Description 02/15/2024 Patient Outreach [facility] Outpatient Care [address] Fourth Floor [place], [place] [phone] Gisel Brandt [facility] Social History Tobacco [...] encounter Progress Notes * Gisel Brandt - 02/15/2024 1:39 PM CDT [facility] attempted to call patient to discuss needs identified on [facility] screening tool. [facility] will f/u next week. Noris Brandt, MPH Chief [facility] documented in this encounter Plan of Treatment Upcoming Encounters Date Type Department Care Team (Late st Contact Info) Description 12/15/2024 3:20 PM HOSPITAL CLERK Office Visit [facility] Spine and Pain Management [place] [address] [place] [address] Osman Wolfe MD [address] [place] [address] documented as of this encounter Visit Diagnoses Not on filedocumented in this encounter Care Teams Hog Counter Relationship Specialty Start Date End Date Asael Barajas DO [facility] [address] [place] [address] PCP - General Internal Medicine 10/01/23 08/09/24 documented as of this encounter
--- OUTSIDE RECORDS SUMMARY | 2024-11-23 10:45 | XMS_ITS | Encounter Summary ---
Author Organization [facility] Address [address] [place] [address] Care Team Providers Care Set Staff Fitter Name Role Phone Asael Barajas DO Primary Care Provider [phone] Encounter Details Date Type Department Care Team [...] (Late Contact Info) Description 12/15/2024 3:20 PM INTERACTIVE MEDIA PROJECT MANAGER Office Visit [facility] Spine and Pain Management [address] [place] [phone] Osman Wolfe MD 1390 [facility] 61 [facility] [address] [place] [phone] documented as of this encounter Visit Diagnoses Not on filedocumented in this encounter Care Teams Set Staff Fitter Relationship Specialty Start Date End Date Asael Barajas DO 1390 [facility] [address] [place] [phone] PCP - General Internal Medicine 10/01/23 08/09/24 documented as of this encounter
--- OUTSIDE RECORDS SUMMARY | 2024-11-23 10:45 | XMS_ITS | Encounter Summary ---
Author Organization [facility] Address [address] [place] [address] Care Team Providers Care Shredder Operator Name Role Phone Asael Barajas DO Primary Care Provider Reason for Visit * Reason Comments Information Encounter Details Date Type Department Care Team (Late st Contact Info) Description 02/11/2024 Telephone [facility] Medicine - [facility] Office [address] [place] [address], [facility] [address] [place] [address] Asael Barajas DO [address] [place] [address] Information Social History Tobacco Use [...] - 02/11/2024 11:22 AM CDT Copied from [facility] #[id number]. Topic: Patient or Caregiver Communication Request >> Feb 11, 2024 11:19 AM Nidhi Ward wrote: Patient or Caregiver insisting that a message be sent to Care Team Caller: Edilberto Hawley Sr. Patient/Caregiver Callback Number: [phone] (home) Call Notes: Patient stated that he is having spells that's lasting for about 45 seconds. Patient stated that the doctor said if it happened again let him know. Please advise documented in this encounter Plan of Treatment Upcoming Encounters Date Type Department Care Team (Late st Contact Info) Description 12/15/2024 3:20 PM VICE PRESIDENT OF PRODUCT MARKETING Office Visit [facility] Spine and Pain Management [place] [address] [place] [address] [address] [place] [address] Osman Wolfe MD [address] [place] [address] documented as of this encounter Visit Diagnoses Not on filedocumented in this encounter Care Teams Shredder Operator Relationship Specialty Start Date End Date Asael Barajas DO [address] [place] [address] [address] [place] [address] PCP - General Internal Medicine 10/01/23 08/09/24 documented as of this encounter
--- OUTSIDE RECORDS SUMMARY | 2024-11-23 10:45 | XMS_ITS | Encounter Summary ---
Author Organization [facility] Address [address] [place] [address] Care Team Providers Care Collections Assistant Name Role Phone Asael Barajas DO Primary Care Provider [phone] Encounter Details Date Type Department Care Team [...] (Late Contact Info) Description 12/15/2024 3:20 PM P 3 ARMAMENT/ORDNANCE IMA TECHNICIAN Office Visit [facility] Spine and Pain Management [address] [place] [phone] Osman Wolfe MD 1390 [facility] [address] [place] [address] documented as of this encounter Visit Diagnoses Not on filedocumented in this encounter Care Teams Collections Assistant Relationship Specialty Start Date End Date Asael Barajas DO [address] [place] [phone] PCP - General Internal Medicine 10/01/23 08/09/24 documented as of this encounter
--- OUTSIDE RECORDS SUMMARY | 2024-11-23 10:45 | XMS_ITS | Encounter Summary ---
Author Organization [facility] Address [address] [facility] [address] [address] Sim: [place] [address] Care Team Providers Care Insurance Verification Clerk Name Role Phone Asael Barajas DO Primary Care Provider [phone] Encounter Details Date Type Department Care Team (Late Contact Info) Description 02/19/2024 External Device Data Initial Department [address] [facility] [address] SIM: [place] [address] Demetrio Downing Md Social History Tobacco Use [...] (Late Contact Info) Description 12/15/2024 3:20 PM PRINTER'S DEVIL Office Visit [facility] Spine and Pain Management [place] [address] [place] [address] Osman Wolfe MD [address] [place] [address] documented as of this encounter Visit Diagnoses Not on filedocumented in this encounter Care Teams Insurance Verification Clerk Relationship Specialty Start Date End Date Asael Barajas DO 1392 [facility] [address] [address] PCP - General Internal Medicine 10/01/23 08/09/24 documented as of this encounter
--- OUTSIDE RECORDS SUMMARY | 2024-11-23 10:45 | XMS_ITS | Encounter Summary ---
Author Organization [facility] Address [address] [place] [address] Care Team Providers Care Microsoft Dynamics Consultant Name Role Phone Buddy Barajas DO Primary Care Provider Reason for Referral * Radiology Services (Routine) - Authorized Specialty Diagnoses / Procedures Referred By Contac tripp Referred To Contact Radiology Diagnoses Transaminitis Procedures US ABDOMEN LIMITED Buddy Barajas DO [address] [place] [address] Jefn Ultrasound [facility] 1500 [facility] [place] [address] Referral ID Status Reason Start Date Expiration Date V isits Requested Visits Authorized [id number] Authorized 12/28/2023 01/27/2025 1 1 ER ANALYST Reason for Visit * Reason Comments Follow Up Encounter Details Date Type Department Care Team (Late st Contact Info) Description 12/27/2023 2:30 PM DEALER ANALYST Office Visit [facility] - [place] [facility] [address] [address], [facility] [address] [place] [address] Buddy Barajas DO [address] [address] [address] [place] [address] Prediabetes (Primary Dx); HTN (hypertension), benign; [...] Comments Blood Pressure 144/82 12/27/2023 2:06 PM DEALER ANALYST Pulse 74 12/27/2023 2:06 PM DEALER ANALYST Temperature 36.3 ??C (97.3 ??F) 12/27/2023 2:06 PM CS T Respiratory Rate 16 12/27/2023 2:06 PM DEALER ANALYST Oxygen Saturation 97% 12/27/2023 2:06 PM DEALER ANALYST Inhaled Oxygen Concentration - - Weight 90.3 kg (199 lb) 12/27/2023 2:06 PM DEALER ANALYST Height 180.3 cm (5' 11 ) 12/27/2023 2:06 PM DEALER ANALYST Body Mass Index 27.75 12/27/2023 2:06 PM DEALER ANALYST documented in this encounter Progress Notes * Inez Holland - 12/27/2023 2:10 PM CST Fall Risk ASSESSMENT He has had no falls in the past year. Depression Screen Positive: PHQ-2 score >= 3 or PHQ-9 score >= 9 PHQ-2 Total: 0 (12/27/2023 2:10 PM) PHQ-9 Total: 0 (12/27/2023 2:10 PM) DEPRESSION PLAN OF CARE His depression screen was negative. ER ANALYST * Buddy Barajas DO - 12/27/2023 2:04 [...] No BLE edema Buddy Barajas DO 12/27/2023 [facility] [address] [address] [place] [address] Portions of this encounter may have been generated with Dragon Naturally Speaking and could containinadvertent errors. Every effort has been made to proof read and avoid such errors. ER ANALYST documented in this encounter Miscellaneous Notes * Result Encounter Note - Vikki Mcgrath RN - 12/28/2023 3:56 PM DEALER ANALYST Per Dr Barajas A couple abnormalities on his recent blood work. His liver numbers were a little bit elevated, I'd like him to get a liver ultrasound to look for any abnormalities. He can call the number below to set up an appointment CENTRAL SCHEDULING FOR PROCEDURE/[phone] His diabetes number is a bit elevated, [...] up visits after US resulkts are in. ER ANALYST * Addendum Note - Buddy Barajas DO - 12/28/2023 8:49 AM CSTAddended by: BUDDY BARAJAS on: 12/28/2023 08:49 AM Modules accepted: Orders ER ANALYST * Patient Instructions - Buddy Barajas DO - 12/27/2023 2:30 PM DEALER ANALYST Max dose of voltaren is 75mg/day Trial [...] across the street: Wed-Wed 630am-5pm, Wednesday 7am-1pm ER ANALYST documented in this encounter Plan of Treatment Upcoming Encounters Date Type Department Care Team (Late st Contact Info) Description 12/15/2024 3:20 PM DEALER ANALYST Office Visit [facility] Spine and Pain Management [place] [address] [place] [address] [address] [place] [address] Osman Wolfe MD [address] [address] [address] [place] [address] Scheduled Orders Name Type Priority Associated Diagnoses Orde r Schedule US ABDOMEN LIMITED Imaging Routine Transaminitis 1 Occurrences starting 12/28/2023 until 12/28/2024 documented as of this encounter Procedures Procedure Name Priority Date/Time Associated Diagnosis Comments CBC WITH DIFFERENTIAL Routine 12/27/2023 3:12 PM DEALER ANALYST HTN (hypertension), benign PSA Routine 12/27/2023 3:12 PM DEALER ANALYST Benign prostatic hyperplasia, unspecified whether lower urinary tract symptoms present HEMOGLOBIN A1C Routine 12/27/2023 3:12 PM DEALER ANALYST Prediabetes COMPREHENSIVE METABOLIC PANEL Routine 12/27/2023 3:12 PM DEALER ANALYST HTN (hypertension), benign MICROALBUMIN/CREATININ E RATIO, RANDOM UR Routine 12/27/2023 3:08 PM DEALER ANALYST HTN (hypertension), benign documented in this encounter Results * PSA (12/27/2023 3:12 PM DEALER ANALYST) Pathologist [facility] PSA 0.36 < OR = 4.00 ng/mL [facility] carlyle Comment: The total PSA value from [...] disease. FASTING:NO FASTING: NO Test Performed at: [email or web address] ??[address] Magdi Mata MD Blood 12/27/2023 3:12 PM DEALER ANALYST 12/27/2023 3:13 PM DEALER ANALYST Buddy Barajas DO CHEMISTRY ORDERABLES [facility] [phone] [facility] [address] * (ABNORMAL) COMPREHENSIVE METABOLIC PANEL (12/27/2023 3:12 PM DEALER ANALYST) Pathologist [facility] GLUCOSE 142(H) 65 - 139 mg/dL [facility]comSophia Parry Comment: ? Non-fasting reference interval BUN 20 7 - 25 mg/dL Nilda drop.ioLucila Parry CREATININE 1.04 0.70 - 1.28 mg/dL N[facility] Parry GFR 77 > OR = 60 mL/min/1. 73m2 N[facility]ia [facility] BUN/CREAT RATIO SEE NOTE: 6 - 22 (calc) Nilda Sum[facility]Sophia Parry Comment: ?? Not Reported: BUN and Creatinine are within ?? reference range. ? SODIUM 139 135 - 146 mmol/L Nilda drop.ioLucila Parry POTASSIUM 4.1 3.5 - 5.3 mmol/L [facility] tripp Par[facility] CHLORIDE 105 98 - 110 mmol/L [facility] tripp Par[facility] CO2 23 20 - 32 mmol/L [facility] tripp Par[facility] CALCIUM 10.1 8.6 - 10.3 mg/dL [facility] TOTAL PROTEIN 7.7 6.1 - 8.1 g/dL [facility] ALBUMIN 5.0 3.6 - 5.1 g/dL [facility]S trpip Parry GLOBULIN 2.7 1.9 - 3.7 g/dL (calc) [facility] ALBUMIN/GLOBULIN RATIO 1.9 1.0 - 2.5 (calc) [facility] BILIRUBIN TOTAL 0.7 0.2 - 1.2 mg/dL [facility] tripp Par[facility] ALKALINE PHOSPHATASE 74 35 - 144 U/L [facility] tripp Par[facility] AST 71(H) 10 - 35 U/L [facility] tripp Par[facility] ALT 114(H) 9 - 46 U/L [facility]S tripp Parry Comment: FASTING:NO FASTING: NO Test Performed at: [facility] [address] [address] [place], [place] ??[address] Cassi[facility]Kasia Issa Adolfo Blood 12/27/2023 3:12 PM DEALER ANALYST 12/27/2023 3:13 PM DEALER ANALYST Buddy Barajas DO CHEMISTRY ORDERABLES [facility] [phone] [facility] [address] [place] [address] * (ABNORMAL) CBC WITH DIFFERENTIAL (12/27/2023 3:12 PM DEALER ANALYST) WBC 11.3(H) 3.8 - 10.8 Thousand/ uL [facility]Lucila Par[facility] RBC 5.45 4.20 - 5.80 Million/u L [facility] tripp Par[facility] HEMOGLOBIN 17.3(H) 13.2 - 17.1 g/dL [facility] HEMATOCRIT 52.1(H) 38.5 - 50.0 % [facility] tripp Parry MCV 95.6 80.0 - 100.0 fL Nilda ArceeNovanceS tripp Parry MCH 31.7 27.0 - 33.0 [...] Nilda Arce-Lucila Parry BASOPHILS 0.4 % [facility]Lucila Parry Comment: FASTING:NO FASTING: NO Test Performed at: [facility] [address] [address] [place], [place] ??[address] CassiMacKasia Issa Vo Blood 12/27/2023 3:12 PM DEALER ANALYST 12/27/2023 3:13 PM DEALER ANALYST Buddy Barajas DO HEMATOLOGY ORDERABLE S [facility] [phone] [facility] [address] [address] [place] [address] * (ABNORMAL) HEMOGLOBIN A1C (12/27/2023 3:12 PM DEALER ANALYST) HEMOGLOBIN A1C 6.6(H) <5.7 % of total Hgb Nilda drop.ioLucila Parry Comment: For someone without known diabetes, [...] ?? ESTIMATED AVERAGE GLUCOSE (MG/DL) 143 mg/dL [facility]comSophia Parry ESTIMATED AVERAGE GLUCOSE (MMOL/L) 7.9 mmol/L [facility]comLucila Parry Comment: HbA1c performed on Divvy[employer] platform. ?? FASTING:NO FASTING: NO Test Performed at: [facility] [place] [address] [place], [place] ??[address] Magdi Mata Blood 12/27/2023 3:12 PM DEALER ANALYST 12/27/2023 3:13 PM DEALER ANALYST Buddy Barajas DO CHEMISTRY ORDERABLES [facility] [phone] [facility] [address] [address] [place] [address] * MICROALBUMIN/CREATININE RATIO, RANDOM UR (12/27/2023 3:08 PM DEALER ANALYST) Creatinine, Urine 240 20 - 320 mg/dL [facility] MICROALBUMIN, URINE 1.5 See Note: mg/dL [...] category. FASTING:NO FASTING: NO Test Performed at: [facility] [address] [place] ??[address] Magdi Mata MD Urine URINE SPECIMEN OBTAINED BY CLEAN CATCH PROCEDURE / Unknown 12/27/2023 3:08 PM DEALER ANALYST 12/27/2023 3:09 PM DEALER ANALYST Buddy Barajas DO URINE ORDERABLES [facility] [phone] [facility] [address] [place] [address] documented in this encounter Visit Diagnoses Diagnosis [...] insulin documented in this encounter Care Teams Microsoft Dynamics Consultant Relationship Specialty Start Date End Date Buddy Barajas DO [address] [address] PCP - General Internal Medicine 10/01/23 08/09/24 documented as of this encounter
--- OUTSIDE RECORDS SUMMARY | 2024-11-23 10:45 | XMS_ITS | Encounter Summary ---
Author Organization [facility] Address [address] Sim: [place] [address] Care Team Providers Care Field Sales Executive Name Role Phone Asael Barajas DO Primary Care Provider Encounter Details Date Type Department Care Team (Late Contact Info) Description 02/11/2024 External Device Data Initial Department [address] SIM: [place] [address] Demetrio Downing Md Social History Tobacco Use [...] (Late Contact Info) Description 12/15/2024 3:20 PM GLOBAL SECURITY ARCHITECT Office Visit [facility] Spine and Pain Management [place] [address] [place] [address] Osman Wolfe MD [address] [place] [address] documented as of this encounter Visit Diagnoses Not on filedocumented in this encounter Care Teams Field Sales Executive Relationship Specialty Start Date End Date Asael Barajas DO 1391 [facility] [address] [address] PCP - General Internal Medicine 10/01/23 08/09/24 documented as of this encounter
--- OUTSIDE RECORDS SUMMARY | 2024-11-23 10:45 | XMS_ITS | Encounter Summary ---
Author Organization [facility] Address [address] [place] [address] Care Team Providers Care Fire Sprinkler Fitter Name Role Phone Asael Barajas DO [...] (Late Contact Info) Description 12/15/2024 3:20 PM SCHOOL AGE PROGRAM TEACHER Office Visit [facility] [address] [place] [phone] Osman Wolfe MD 1390 [facility] 61 [facility] [address] [place] [address] documented as of this encounter Visit Diagnoses Not on filedocumented in this encounter Care Teams Fire Sprinkler Fitter Relationship Specialty Start Date End Date Asael Barajas DO 1390 [facility] [address] [place] [address] [place] [address] PCP - General Internal Medicine 10/01/23 08/09/24 documented as of this encounter
--- OUTSIDE RECORDS SUMMARY | 2024-11-23 10:45 | XMS_ITS | Encounter Summary ---
Author Organization [facility] Address [address] [place] [address] Care Team Providers Care Bark Skinner Name Role Phone Asael Barajas DO Primary [...] (Late Contact Info) Description 12/15/2024 3:20 PM OPEN CLAIMS REPRESENTATIVE Office Visit [facility] Spine and Pain Management [address] [place] [address] Osman Wolfe MD [address] [place] [address] documented as of this encounter Visit Diagnoses Not on filedocumented in this encounter Care Teams Bark Skinner Relationship Specialty [place] [address] [place] [address] [address] [place] [address] PCP - General Internal Medicine 10/01/23 08/09/24 documented as of this encounter
--- OUTSIDE RECORDS SUMMARY | 2024-11-23 10:45 | XMS_ITS | Encounter Summary ---
Author Organization [facility] Address [address] [place] [address] Care Team Providers Care Departmental Shipping Clerk Name Role Phone Asael Barajas DO Primary Care Provider Reason for Visit * Reason Comments Needs Orders Written Encounter Details Date Type Department Care Team (Late st Contact Info) Description 03/13/2024 Telephone [facility] Medicine - [place] [facility] [address] [address], [email or web address] [address] [place] [address] Asael Barajas DO [address] [place] [address] Needs Orders Written Social History [...] - 03/13/2024 11:40 AM CDT Copied from [facility] #[id number]. Topic: CPA Information Request - Order or Referral Request >> Mar 13, 2024 11:39 AM Lizz Blum wrote: Caller is requesting: New Lab Store Worker Name: edilberto Patient/Caregiver Callback Number: [phone] Order: MRI Reason for Request: Needs MRI for right shoulder ,needs to look at muscles >> Mar 13, 2024 11:40 AM Lizz Blum wrote: Needs order for mri documented in this encounter Plan of Treatment Upcoming Encounters Date Type Department Care Team (Late st Contact Info) Description 12/15/2024 3:20 PM TENNIS BALL COVER CEMENTER Office Visit [facility] Spine and Pain Management [place] [address] [place] [address] [address] [place] [address] Osman Wolfe MD [address] [place] [address] documented as of this encounter Visit Diagnoses Not on filedocumented in this encounter Care Teams Departmental Shipping Clerk Relationship Specialty Start Date End Date Asael Barajas DO [address] [place] [address] PCP - General Internal Medicine 10/01/23 08/09/24 documented as of this encounter
--- OUTSIDE RECORDS SUMMARY | 2024-11-23 10:45 | XMS_ITS | Encounter Summary ---
Author Organization [facility] Address [address] [place] [address] Care Team Providers Care Promotional Advertising Assistant Name Role Phone Asael Barajas DO Primary Care Provider [phone] Reason for Visit * Reason Onset Date Comments [facility] 02/29/2024 Encounter Details Date Type Department Care Team (Late st Contact Info) Description 02/29/2024 Patient Outreach [facility] Outpatient Care [facility] - [address] Fourth Floor [place], [place] [id number] Gisel Brandt [facility] Social History Tobacco [...] screening tool. Patient does not qualify for [employer] Financial Assistance due to income. [facility] did discuss paymentplan options if needed. Patient will contact [facility] if needs help with social needs in the future. Noris Brandt, MPH Nuclear Physics Professor [facility] documented in this encounter Plan of Treatment Upcoming Encounters Date Type Department Care Team (Late st Contact Info) Description 12/15/2024 3:20 PM VEGETABLE HANDLER Office Visit [facility] Spine and Pain Management [place] [address] [place] [address] [address] [place] [address] Osman Wolfe MD [address] [place] [address] documented as of this encounter Visit Diagnoses Not on filedocumented in this encounter Care Teams Promotional Advertising Assistant Relationship Specialty Start Date End Date Asael Barajas DO [address] [place] [address] [address] [place] [address] PCP - General Internal Medicine 10/01/23 08/09/24 documented as of this encounter
--- OUTSIDE RECORDS SUMMARY | 2024-11-23 10:45 | XMS_ITS | Encounter Summary ---
Author Organization [facility] Address [address] [place] [address] Care Team Providers Care Architect Intern Name Role Phone Asael Barajas DO Primary Care Provider Reason for Visit * Reason Comments Headache Patient went to [facility] after then patient is in so [...] Description 02/10/2024 2:00 PM CDT Office Visit [facility] Office [address] [place] [address] Asael Barajas DO [address] [place] [address] Brain aneurysm (Primary Dx); Chronic bilateral low [...] No BLE edema Asael Barajas DO 02/10/2024 [facility] [place] [id number] [address] Portions of this encounter may have been [...] st Contact Info) Description 12/15/2024 3:20 PM HANDBAG FRAMES INSPECTOR Office Visit [facility] Spine and Pain Management [place] [address] [place] [address] Osman Wolfe MD [address] [place] [address] documented as of this encounter Visit Diagnoses Diagnosis Brain aneurysm- Primary Cerebral aneurysm, nonruptured Chronic bilateral low back pain with sciatica, sciatica laterality unspecified documented in this encounter Care Teams Architect Intern Relationship Specialty Start Date End Date Asael Barajas DO [address] [place] [address] PCP - General Internal Medicine 10/01/23 08/09/24 documented as of this encounter
--- OUTSIDE RECORDS SUMMARY | 2024-11-23 10:45 | XMS_ITS | Encounter Summary ---
Author Organization [facility] Address [address] [place] [address] Care Team Providers Care Airborne And Air Delivery Specialist Name Role Phone Asael Barajas DO [...] (Late Contact Info) Description 12/15/2024 3:20 PM RETOUCHING OPERATOR Office Visit [facility] Spine and Pain Management [address] [place] [phone] Osman Wolfe MD 1390 [facility] 61 [facility] [address] [place] [address] documented as of this encounter Visit Diagnoses Not on filedocumented in this encounter Care Teams Airborne And Air Delivery Specialist Relationship Specialty Start Date End Date Asael Barajas DO 1390 [facility] [address] [place] [address] PCP - General Internal Medicine 10/01/23 08/09/24 documented as of this encounter
--- OUTSIDE RECORDS SUMMARY | 2024-11-23 10:45 | XMS_ITS | Encounter Summary ---
Author Organization [facility] Address [address] Sim: [place] [address] Care Team Providers Care Dope Mixer Name Role Phone Asael Barajas DO Primary Care Provider Encounter Details Date Type Department Care Team (Late Contact Info) Description 02/23/2024 External Device Data Initial Department [address] SIM: [place] [address] Demetrio Downing Md Social History Tobacco Use [...] (Late Contact Info) Description 12/15/2024 3:20 PM CREDENTIALING SPECIALIST Office Visit [facility] Spine and Pain Management [place] [address] [place] [address] Osman Wolfe MD [address] [place] [address] documented as of this encounter Visit Diagnoses Not on filedocumented in this encounter Care Teams Dope Mixer Relationship Specialty Start Date End Date Asael Barajas DO 1396 [facility] [address] [address] PCP - General Internal Medicine 10/01/23 08/09/24 documented as of this encounter
--- OUTSIDE RECORDS SUMMARY | 2024-11-23 10:45 | XMS_ITS | Encounter Summary ---
Author Organization [facility] Address [address] [place] [address] Care Team Providers Care Life Underwriter Name Role Phone Asael Barajas DO Primary [...] (Late Contact Info) Description 12/15/2024 3:20 PM SHEET METAL WELDER Office Visit [facility] Spine and Pain Management [address] [place] [phone] Osman Wolfe MD 1390 [facility] 61 [facility] [address] [place] [address] documented as of this encounter Visit Diagnoses Not on filedocumented in this encounter Care Teams Life Underwriter Relationship Specialty Start Date End Date Asael Barajas DO 1390 [facility] [address] [place] [phone] PCP - General Internal Medicine 10/01/23 08/09/24 documented as of this encounter
--- OUTSIDE RECORDS SUMMARY | 2024-11-23 10:45 | XMS_ITS | Encounter Summary ---
Author Organization [facility] Address [address] [place] [address] Care Team Providers Care Internet Marketer Name Role Phone Asael Barajas DO Primary Care Provider [phone] Reason for Visit * Reason Onset Date Comments Medication Refill 03/29/2024 Encounter Details Date Type Department Care Team (Late st Contact Info) Description 03/29/2024 Refill [facility] Family Medicine [facility] Medical Office [address] [address], [place] [address] [place] [address] Asael Barajas DO 1400 [facility] 61 [facility] [address] [place] [address] Benign prostatic hyperplasia, unspecified whether [...] st Contact Info) Description 12/15/2024 3:20 PM PURSE MAKER Office Visit [facility] Spine and Pain Management [place] [address] [place] [address] Osman Wolfe MD [address] [place] [address] documented as of this encounter Visit Diagnoses Diagnosis Benign prostatic hyperplasia, unspecified whether lower urinary tract symptoms present documented in this encounter Care Teams Internet Marketer Relationship Specialty Start Date End Date Asael Barajas DO [facility] [address] [place] [address] PCP - General Internal Medicine 10/01/23 08/09/24 documented as of this encounter
--- OUTSIDE RECORDS SUMMARY | 2024-11-23 10:45 | XMS_ITS | Encounter Summary ---
Author Organization [employer] Address [address] [place] [address] Care Team Providers Care Motion Picture Equipment Supervisor Name Role Phone Asael Barajas DO Primary Care Provider [phone] Reason for Referral * MRI (Routine) - Closed Specialty Diagnoses / Procedures Referred By Celine almaguer Referred To Contact Radiology Diagnoses TIA (transient ischemic attack) Procedures MRI BRAIN W WO CONTRAST Asael Barajas, [address] [address] [facility] [address] [address] Referral ID Status Reason Start Date Expiration Date Visits Re quested Visits Authorized [id number] Closed 02/14/2024 03/16/2025 1 1 Reason for Visit * MRI (Routine) - Closed Specialty Diagnoses / Procedures Referred By Celine almaguer Referred To Contact Radiology Diagnoses TIA (transient ischemic attack) Procedures MRI BRAIN W WO CONTRAST Asael Barajas, DO [address] [address] [facility] [address] [address] Referral ID Status Reason Start Date Expiration Date Visits Re quested Visits Authorized [id number] Closed 02/14/2024 03/16/2025 1 1 Encounter Details Date Type Department Care Team (Latest Contact Info) Description 03/03/2024 6:52 AM CDT - 03/03/2024 11:59 PM CDT Hospital Encounter [facility] [facility] 1400 [facility] [place] [address] [address] Karl Asael, 1400 [facility] [place] 61 [facility] [address] [place] [address] Discharge Disposition: Home [...] Date End Date pregabalin (Lyrica) 75 mg CapsuleIndications:Dry Transfer Worker roe bilateral low back pain with sciatica, [...] st Contact Info) Description 12/15/2024 3:20 PM GRINDER MILL OPERATOR Office Visit [facility] [place] [address] [address] [address] [place] [address] Osman Wolfe MD 1390 [facility] [address] [place] [address] documented [...] A1/A2 ANTHONY segments. DICTATION LOCATION: Location 2 [facility] Narrative 03/03/2024 9:06 AM CDT EXAMINATION: MAGNETIC [...] A1/A2 ANTHONY segments. DICTATION LOCATION: Location - [facility] Asael Barajas DO MR ORDERABLES documented in [...] mL documented in this encounter Care Teams Motion Picture Equipment Supervisor Relationship Specialty Start Date End Date Asael Barajas DO [address] [phone] PCP - General Internal Medicine 10/01/23 08/09/24 documented as of this encounter
--- OUTSIDE RECORDS SUMMARY | 2024-11-23 10:45 | XMS_ITS | Encounter Summary ---
Author Organization [email or web address] Address [address] [place] [address] Care Team Providers Care Manager Concrete Name Role Phone Asael Barajas DO Primary Care Provider Reason for Visit * Reason Comments Numbness Numbness and tinglin g since 4 am 2 days ago. Had some diarrhea. Thought he had a Stroke because he urinated all over himself. * Auth/Cert (Routine) Specialty Diagnoses / Procedures Referred By Celine almaguer Referred To Contact Emergency [facility] [address] [address] Referral ID Status Reason Start Date Expiration Date Visits Re quested Visits Authorized [id number] 1 1 Encounter Details Date Type Department Care Team (Late st Contact Info) Description 02/04/2024 4:06 PM CDT - 02/04/2024 7:51 PM CDT Emergency [facility] [address] [address] Pascual Mayers MD [address] [address] Numbness and tingling (Primary Dx) [...] through Care Everywhere. * Numbness and Tingling (Namibian) documented in this encounter Medications at [...] 3 12/27/2023 03/29/2024 pregabalin (Lyrica) 50 mg CapsuleIndications:Renewable Energy Division Manager roe bilateral low back pain with sciatica, [...] Reconstruction Technique. DICTATION LOCATION: Location 1 - [facility] XR CHEST PA OR AP 1 [...] Normal Sinus Rhythm Rate 79 bpm Left Collins Deviation Incomplete Right Bundle Branch Block Left [...] of Iterative Reconstruction Technique. DICTATION LOCATION: Location [address] [place] [address] XR CHEST PA OR AP 1 VW [...] st Contact Info) Description 12/15/2024 3:20 PM USER INTERFACE DESIGNER Office Visit [facility] [place] [address] [place] [address] Osman Wolfe MD [address] [address] [address] [place] [address] documented as [...] 13 <=15 ng/L 02/04/2024 7:20 PM CDT [facility] DELTA 2HR TROPONIN T 0 See Interp. 02/04/2024 7:20 PM CDT [facility] Blood Collection / Unknown 02/04/2024 6:59 PM CDT 02/04/2024 7:08 PM CDT Narrative [facility] - 02/04/2024 7:20 PM CDT Troponin Detectable but normal range. Delta not changing. Pascual Mayers MD CHEMISTRY ORDERA BLES [facility] CLIA # [id number] [address] [place] [address] * EXTRA TUBE (URINE BECKETT) (02/04/2024 6:36 PM CDT) Urine URINE SPECIMEN OBTAINED BY CLEAN CATCH PROCEDURE / Unknown Collection / Unknown 02/04/2024 6:36 PM CDT 02/04/2024 6:42 PM CDT Pascual Mayers MD URINE ORDERABLES [facility] CLIA # [id number] [facility] [address] [place] [address] * URINALYSIS WITH REFLEX MICROSCOPIC (02/04/2024 6:36 PM CDT) Pathologist [facility] COLOR UA Yellow Pale to Dark Yellow 02/04/2024 6:46 PM CDT [facility] CLARITY UA Clear Clear 02/04/2024 6:46 PM CDT [facility] SPECIFIC GRAVITY UA 1.026 1.003 - 1.035 02/04/2024 6:46 PM CDT [facility] PH UA 6.0 5.0 - 8.0 02/04/2024 6:46 PM CDT [facility] LEUKOCYTE ESTERASE UA Negative Negative 02/04/2024 6:46 PM CDT [facility] NITRITE UA Negative Negative 02/04/2024 6:46 PM CDT [facility] PROTEIN UA Negative Negative 02/04/2024 6:46 PM CDT [facility] GLUCOSE UA Negative Negative 02/04/2024 6:46 PM CDT [facility] KETONES UA Negative Negative 02/04/2024 6:46 PM CDT [facility] UROBILINOGEN UA Normal <2.0 mg/dL 6:46 PM CDT [facility] BILIRUBIN UA Negative Negative 02/04/2024 6:46 PM CDT [facility] BLOOD UA Negative Negative 02/04/2024 6:46 PM CDT [facility] Urine URINE SPECIMEN OBTAINED BY CLEAN CATCH PROCEDURE / Unknown Collection / Unknown 02/04/2024 6:36 PM CDT 02/04/2024 6:42 PM CDT Pascual Mayers MD URINE ORDERABLES [facility] CLIA # [id number] [facility] [address] [place] [phone] * CTA HEAD AND NECK W AND/OR [...] Technique. ?? DICTATION LOCATION: Location 1 - [facility] Narrative 02/04/2024 7:34 PM CDT CTA HEAD AND NECK W AND/OR WO CONTRAST DATE: ??02/04/2024 6:18 PM HISTORY: Transient ischemic attack (TIA). TECHNIQUE: Computed tomography axial images were acquired. Angiographic protocol. Isovue-300 intravenous contrast. Multiplanar reformats and 3D volumetric reconstructions ??were created. MIP reformats. Stenosis measurements by NASCET criteria. Automated software analysis for large vessel occlusion specifically utilizing RAPID software program by [employer]. CONTRAST: IOPAMIDOL 76 % INTRAVENOUS SOLUTION (MULTI-DOSE [...] occlusion specifically utilizing RAPID software program by [employer]. CONTRAST: IOPAMIDOL 76 % INTRAVENOUS SOLUTION (MULTI-DOSE [...] Reconstruction Technique. DICTATION LOCATION: Location 1 - [facility] Pascual Mayers MD CT ORDERABLES * EKG 12-LEAD (02/04/2024 5:36 PM CDT) 02/04/2024 5:36 PM CDT Narrative INTERFACE SYSTEM - 02/05/2024 8:08 AM CDT ? [facility] ? [address], [place] [address] ? Test Date: ?2024-02-04 Pat Name: ? EDILBERTO HAWLEY ? Department: ?? 5000 ? Room: ? ED16 ED16 Gender: ? Male ? Collector Of Port: ? : ?1955 ? Requested By: PASCUAL CHAUHAN Order Number: [id number] ? Reading MD: ?? Kemal Collazo ? Measurements Intervals ?Collins ? Rate: ? 79 ? P: ?47 OH: ? 188 ?QRS: ?-68 QRSD: ? 95 [...] Procedure Note Kemal Collazo MD - 02/05/2024 [facility] [address], [place] [address] Test Date: 2024-02-04 Pat Name: EDILBERTO HAWLEY Department: [facility] Room: ED16 ED16 Gender: Male Collector Of Port: : 1955 Requested By: PASCUAL CHAUHAN Order Number: [id number] Reading MD: Kemal Collazo Measurements Intervals Collins Rate: 79 P: 47 [place]: 188 QRS: -68 QRSD: 95 T: 40 [...] 6.8(H) <=5.6 % 02/04/2024 6:17 PM CDT [facility] EST. AVG GLUCOSE, A1C 148 mg/dL 02/04/2024 6:17 PM CDT [facility] Blood Collection / Unknown 02/04/2024 5:35 PM CDT 02/04/2024 5:57 PM CDT Narrative [facility] - 02/04/2024 6:17 PM CDT HGB A1C INTERPRETATION NORMAL: ? <5.7% PRE-DIABETES: 5.7 - 6.4% DIABETES: ? 6.5% OR GREATER Pascual Mayers MD CHEMISTRY ORDERA BLES [facility] CLIA # [id number] [address] [place] [address] * (ABNORMAL) MAGNESIUM LEVEL (02/04/2024 5:35 PM CDT) MAGNESIUM 2.5(H) 1.6 - 2.4 mg/dL 02/04/2024 5:52 PM CDT [facility] Blood Collection / Unknown 02/04/2024 5:35 PM CDT 02/04/2024 5:46 PM CDT Pascual Mayers MD CHEMISTRY ORDERA BLES Performing Organization Address [facility] Co de Phone Number [facility] CLIA # [id number] [address] [place] [address] * TSH REFLEXIVE (02/04/2024 5:35 PM CDT) TSH 0.90 0.27 - 4.20 uIU/mL 02/04/2024 6:10 PM CDT [facility] Blood Collection / Unknown 02/04/2024 5:35 PM CDT 02/04/2024 5:46 PM CDT Pascual Mayers MD CHEMISTRY ORDERA BLES Performing Organization Address City/[facility]/ZIP Co de Phone Number [facility] CLIA # [id number] [address] [place] [address] * TROPONIN BASELINE, 5TH GEN (02/04/2024 5:35 PM CDT) Pathologist [facility] TROPONIN T, BASELINE 5TH GEN 13 <=15 ng/L 02/04/2024 6:00 PM CDT [facility] Blood Collection / Unknown 02/04/2024 5:35 PM CDT 02/04/2024 5:46 PM CDT Narrative [facility] - 02/04/2024 6:00 PM CDT Troponin Detectable but normal range. Pascual Mayers MD CHEMISTRY ORDERA BLES [facility] CLIA # [id number] [address] [address] * BRAIN NATRIURETIC PEPTIDE, BNP OR PROBNP (02/04/2024 5:35 PM CDT) Pathologist [facility] PROBNP, N TERMINAL <36 <900 pg/mL 02/04/2024 6:10 PM CDT [facility] Comment:Among patients with dyspnea, NT-proBNP is highly sensitive for the detection on acute congestive heart failure. In addition, a NT-proBNP <300 pg/mL effectively rules out acute congestive heart failure, with 99% negative predictive value. Blood Collection / Unknown 02/04/2024 5:35 PM CDT 02/04/2024 5:46 PM CDT Pascual Mayers MD CHEMISTRY ORDERA BLES [facility] CLIA # [id number] [address] [address] * (ABNORMAL) COMPREHENSIVE METABOLIC PANEL (02/04/2024 5:35 PM CDT) Pathologist [facility] SODIUM 135(L) 136 - 145 mmol/L 02/04/2024 5:57 PM CDT [facility] POTASSIUM 3.9 3.5 - 5.1 mmol/L 02/04/2024 5:57 PM [facility] CHLORIDE 104 98 - 107 mmol/L 02/04/2024 5:57 PM [facility] CO2 20(L) 22 - 29 mmol/L 02/04/2024 5:57 PM [facility] CALCIUM 10.3(H) 8.8 - 10.2 mg/dL 02/04/2024 5:57 PM [facility] BUN 26(H) 8 - 23 mg/dL 02/04/2024 5:57 PM [facility] CREATININE 1.02 0.67 - 1.17 mg/dL 02/04/2024 5:57 PM [facility] Comment:The GFR result is no t clinically significant on patients <18 or >70 years of age. GLUCOSE 160(H) 74 - 99 mg/dL 02/04/2024 5:57 PM [facility] TOTAL PROTEIN 6.9 6.6 - 8.7 g/dL 02/04/2024 5:57 PM [facility] ALBUMIN 4.2 4.0 - 5.0 g/dL 02/04/2024 5:57 PM [facility] BILIRUBIN TOTAL 0.3 <=1.2 mg/dL 02/04/2024 5:57 PM [facility] ALKALINE PHOSPHATASE 92 40 - 129 U/L 02/04/2024 5:57 PM [facility] AST 55(H) <=41 U/L 02/04/2024 5:57 PM [facility] ALT 84(H) <=41 U/L 02/04/2024 5:57 PM [facility] GFR >60 mL/min/1.7 3 sq meter 02/04/2024 5:57 PM [facility] Comment:eGFR calculated with 2020 CKD-EPI equation. Vegetarian diet, extremely high or low muscle mass, and may affect results. Cystatin C with Glomerular Filtration Rate is a suitable alternative for these patients. ANION GAP 11 5 - 15 mmol/L 02/04/2024 5:57 PM CDT [facility] Blood Collection / Unknown 02/04/2024 5:35 PM CDT 02/04/2024 5:46 PM CDT Pascual Mayers MD CHEMISTRY ORDERA BLES [facility] CLIA # [id number] [address] [place] [address] * (ABNORMAL) CBC WITH DIFFERENTIAL (02/04/2024 5:35 PM CDT) WBC 9.7 4.0 - 11.0 K/uL 02/04/2024 5:42 PM CDT [facility] RBC 5.31 4.60 - 6.20 M/uL 02/04/2024 5:42 PM CDT [facility] HEMOGLOBIN 17.3(H) 13.5 - 17.0 g/dL 02/04/2024 5:42 PM CDT [facility] HEMATOCRIT 49.7 40.0 - 54.0 % 02/04/2024 5:42 PM CDT [facility] MCV 93.6 80.0 - 98.0 fL 02/04/2024 5:42 PM CDT [facility] MCH 32.6 26.0 - 34.0 pg 02/04/2024 5:42 PM CDT [facility] MCHC 34.8 31.0 - 37.0 g/dL 02/04/2024 5:42 PM CDT [facility] RDW 11.7 11.5 - 14.5 % 02/04/2024 5:42 PM CDT [facility] RDW-STDEV 40.3 34.0 - 54.0 fL 02/04/2024 5:42 PM CDT [facility] PLATELETS 235 150 - 400 K/uL 02/04/2024 5:42 PM CDT [facility] MPV 10.1 8.5 - 12.5 fL 02/04/2024 5:42 PM CDT [facility] NEUTROPHILS 64 50 - 70 % 02/04/2024 5:42 PM CDT [facility] LYMPHOCYTES 25 20 - 40 % 02/04/2024 5:42 PM CDT [facility] MONOCYTES 8 2 - 8 % 02/04/2024 5:42 PM CDT [facility] EOSINOPHILS 3 1 - 3 % 02/04/2024 5:42 PM CDT [facility] BASOPHILS 0 0 - 1 % 02/04/2024 5:42 PM CDT [facility] IMMATURE GRANULOCYTES 0 0 - 2 % 02/04/2024 5:42 PM CDT [facility] NEUTROPHIL ABSOLUTE 6.20 1.80 - 7.70 K/uL 02/04/2024 5:42 PM CDT [facility] LYMPHOCYTE ABSOLUTE 2.44 1.00 - 3.30 K/uL 02/04/2024 5:42 PM CDT [facility] MONOCYTE ABSOLUTE 0.78 0.00 - 0.80 K/uL 02/04/2024 5:42 PM CDT [facility] EOSINOPHIL ABSOLUTE 0.24 0.00 - 0.45 K/uL 02/04/2024 5:42 PM CDT [facility] BASOPHILS ABSOLUTE 0.02 0.00 - 0.20 K/uL 02/04/2024 5:42 PM CDT [facility] IMMATURE GRANULOCYTES ABSOLUTE 0.03 0.00 - 0.31 K/uL 02/04/2024 5:42 PM CDT [facility] Blood Collection / Unknown 02/04/2024 5:35 PM CDT 02/04/2024 5:40 PM CDT Pascual Mayers MD HEMATOLOGY ORDER RASHMI [facility] CLIA # [id number] [address] [place] [address] * XR CHEST PA OR [...] RT) documented in this encounter Care Teams Manager Concrete Relationship Specialty Start Date End Date Asael Barajas DO [address] [address] PCP - General Internal Medicine 10/01/23 08/09/24 documented as of this encounter
--- OUTSIDE RECORDS SUMMARY | 2024-11-23 10:45 | XMS_ITS | Encounter Summary ---
Author Organization [facility] Address [address] [place] [address] Care Team Providers Care Community Health Representative Name Role Phone Asael Barajas DO Primary Care Provider Reason for Visit * Reason Onset Date Comments Medication Refill 11/24/2023 Encounter Details Date Type Department Care Team (Late st Contact Info) Description 11/24/2023 Refill [facility] [place] [facility] [address] [place] [address], [address] [place] [address] Asael Barajas DO 1400 [facility] [address] [facility] [address] [place] [address] Chronic bilateral low back pain [...] mouth 3 times daily. Refill Preferred Pharmacy: [id number] - [facility] [address] [facility] [address]. Date of last encounter: 11/09/2023 Next Appointment: 03/31/2024 Asael Barajas DO Patient Contact Information: Home Phone Work Phone OR ENGINEERING MANAGER documented in this encounter Plan of Treatment Upcoming Encounters Date Type Department Care Team (Late st Contact Info) Description 12/15/2024 3:20 PM SENIOR ENGINEERING MANAGER Office Visit [facility] [place] [address] [place] [address] [place] [address], [place] [address] Osman Wolfe MD [address] [place] [phone] documented as of this encounter Visit Diagnoses Diagnosis Chronic bilateral low back pain with sciatica, sciatica laterality unspecified documented in this encounter Care Teams Community Health Representative Relationship Specialty Start Date End Date Asael Barajas DO [address] [place] [address] [address] [place] [phone] PCP - General Internal Medicine 10/01/23 08/09/24 documented as of this encounter
--- OUTSIDE RECORDS SUMMARY | 2024-11-23 10:45 | XMS_ITS | Encounter Summary ---
Author Organization [facility] Address [address] [place] [address] Care Team Providers Care Mud Analysis Well Logging Operator Name Role Phone Asael Barajas DO Primary Care Provider [phone] Reason for Visit * Reason Comments Results Patient Communication Encounter Details Date Type Department Care Team (Late st Contact Info) Description 03/06/2024 Telephone [facility] Medicine - [facility] Office [address] [place] [address] [address], [facility] [address] [place] [address] Asael Barajas DO [address] [place] [address] Results; Patient Communication Social History [...] 03/06/2024 2:26 PM CDT Copied from CRM #[id number]. Topic: CPA Information Request - Patient Call [...] 03/06/2024 11:18 AM CDT Copied from CRM #[id number]. Topic: CPA Information Request - Results >> Mar 06, 2024 11:16 AM Christiana Bolivar wrote: Caller is requesting information about results from an order. ? Caller Name: Edilberto Callback Number: [phone] (home) Test Name: MRI Results are: Call Notes: Please call Edilberto back with results documented in this encounter Plan of Treatment Upcoming Encounters Date Type Department Care Team (Late st Contact Info) Description 12/15/2024 3:20 PM GLASS FURNACE TENDER Office Visit [facility] [place] [address] [place] [phone] Osman Wolfe MD [address] [place] [phone] documented as of this encounter Visit Diagnoses Not on filedocumented in this encounter Care Teams Mud Analysis Well Logging Operator Relationship Specialty Start Date End Date Asael Barajas DO [address] [place] [address] PCP - General Internal Medicine 10/01/23 08/09/24 documented as of this encounter
--- OUTSIDE RECORDS SUMMARY | 2024-11-23 10:45 | XMS_ITS | Encounter Summary ---
Author Organization [facility] Address [address] [place] [address] Care Team Providers Care Asic Engineer Name Role Phone Asael Barajas DO [...] (Late Contact Info) Description 12/15/2024 3:20 PM SUPERINTENDENT AUTOMOTIVE Office Visit [facility] [address] [place] [phone] Osman Wolfe MD 1390 [facility] [address] [facility] [address] [place] [address] documented as of this encounter Visit Diagnoses Not on filedocumented in this encounter Care Teams Asic Engineer Relationship Specialty Start Date End Date Asael Barajas DO 1390 [facility] [address] [place] [phone] PCP - General Internal Medicine 10/01/23 08/09/24 documented as of this encounter
--- OUTSIDE RECORDS SUMMARY | 2024-11-23 10:45 | XMS_ITS | Encounter Summary ---
Author Organization [facility] Address [address] [place] [address] Care Team Providers Care Message Broker Developer Name Role Phone Asael Barajas DO Primary Care Provider [phone] Reason for Visit * Reason Onset Date Comments Health Leads 02/22/2024 Encounter Details Date Type Department Care Team (Late st Contact Info) Description 02/22/2024 Patient Outreach [facility] Outpatient Care [address] Fourth Floor [place], [place] [id number] Gisel Brandt Health Leads Social History Tobacco [...] week. Call attempt #2. Noris Brandt, MPH Supervisor [employer] Health Leads documented in this encounter Plan of Treatment Upcoming Encounters Date Type Department Care Team (Late st Contact Info) Description 12/15/2024 3:20 PM DOOR TO DOOR SALES REPRESENTATIVE Office Visit [facility] [place] [address] [place] [address] [address] [place] [address] Osman Wolfe MD [address] [place] [address] documented as of this encounter Visit Diagnoses Not on filedocumented in this encounter Care Teams Message Broker Developer Relationship Specialty Start Date End Date Asael Barajas DO [address] [place] [address] [address] [place] [phone] PCP - General Internal Medicine 10/01/23 08/09/24 documented as of this encounter
--- OUTSIDE RECORDS SUMMARY | 2024-11-23 10:45 | XMS_ITS | Encounter Summary ---
Author Organization [facility] Address [address] Sim: [place] [address] Care Team Providers Care Revenue Enforcement Agent Name Role Phone Asael Barajas DO Primary Care Provider [phone] Encounter Details Date Type Department Care Team (Late Contact Info) Description 02/09/2024 External Device Data Initial Department [address] SIM: [place] [address] Demetrio Downing Md Social History Tobacco Use [...] (Late Contact Info) Description 12/15/2024 3:20 PM TEMPLER HEAD Office Visit [facility] Spine and Pain Management [place] [address] [place] [address] Osman Wolfe MD 1390 [facility] [address] [facility] [address] [place] [address] documented as of this encounter Visit Diagnoses Not on filedocumented in this encounter Care Teams Revenue Enforcement Agent Relationship Specialty Start Date End Date Asael Barajas DO 1390 [facility] [address] [facility] 1000 [place] [address] PCP - General Internal Medicine 10/01/23 08/09/24 documented as of this encounter
--- OUTSIDE RECORDS SUMMARY | 2024-11-23 10:45 | XMS_ITS | Encounter Summary ---
Author Organization [facility] Address [address] [place] [address] Care Team Providers Care External Auditor Name Role Phone Asael Barajas DO Primary Care Provider [phone] Reason for Visit * Reason Comments Clinical Consult Before Scheduling Encounter Details Date Type Department Care Team (Late st Contact Info) Description 02/04/2024 Telephone [facility] Medicine - [facility] Office [address] [address], [facility] [address] [place] [address] Asael Barajas DO [address] [place] [address] Clinical Consult Before Scheduling Social [...] - 02/04/2024 2:29 PM CDT Copied from [facility] #[id number]. Topic: Symptomatic Care >> Feb 04, 2024 2:25 PM Isreal Gaytan wrote: Caller has new symptoms and is seeking care. Age Range/Symptom: Adult: 18+ - New Onset Impaired Speech, one side of face drooping, loss of sensation, numbness, or paralysis Caller Name: Edilberto Hawley Sr. Callback Number: [phone] Call Notes: Patient believes he had a [...] st Contact Info) Description 12/15/2024 3:20 PM AIR MOVING TECHNICIAN Office Visit [facility] Spine and Pain Management [place] [address] [place] [address] [address] [place] [phone] Osman Wolfe MD [address] [place] [address] documented as of this encounter Visit Diagnoses Not on filedocumented in this encounter Care Teams External Auditor Relationship Specialty Start Date End Date Asael Barajas DO [facility] [address] [place] [address] PCP - General Internal Medicine 10/01/23 08/09/24 documented as of this encounter
--- OUTSIDE RECORDS SUMMARY | 2024-11-23 10:45 | XMS_ITS | Encounter Summary ---
Author Organization [employer] Address [address] [place] [address] Care Team Providers Care Matcher Operator Name Role Phone Asael Barajas DO Primary Care Provider [phone] Reason for Referral * MRI (Routine) - Closed Specialty Diagnoses / Procedures Referred By Celine almaguer Referred To Contact Radiology Diagnoses TIA (transient ischemic attack) Procedures MRI BRAIN W WO CONTRAST Asael Barajas DO [address] [address] [place] [address] [place] [address] Jefn Mri [address] [address] Referral ID Status Reason Start Date Expiration Date Visits Re quested Visits Authorized [id number] Closed 02/14/2024 03/16/2025 1 1 Reason for Visit * Reason Onset Date Comments [employer] 02/11/2024 Encounter Details Date Type Department Care Team (Late Contact Info) Description 02/11/2024 Telephone [facility] [address] [place] [address] Josafat Barnhart, RN [facility] Social History Tobacco Use Types Packs/Day [...] PM CDT vAcute Interaction Note: Service Line: [facility] Assessment: Called patient regarding CareConnect survey response. [...] st Contact Info) Description 12/15/2024 3:20 PM CHECKER STOCKER Office Visit [facility] Spine and Pain Management [address] [place] [address] Osman Wolfe MD [address] [address] [place] [address] [place] [phone] documented as of this encounter Results * [...] left A1/A2 ANTHONY segments. DICTATION LOCATION: Location [address] [place] [address] 03/03/2024 9:06 AM CDT EXAMINATION: MAGNETIC RESONANCE [...] the left A1/A2 ANTHONY segments. DICTATION LOCATION: [address] Asael Barajas DO MR ORDERABLES documented in this encounter Visit Diagnoses Diagnosis TIA (transient ischemic attack)- Primary Unspecified transient cerebral ischemia TIA (transient ischemic attack) Unspecified transient cerebral ischemia documented in this encounter Care Teams Matcher Operator Relationship Specialty Start Date End Date Asael Barajas DO [address] [place] [phone] PCP - General Internal Medicine 10/01/23 08/09/24 documented as of this encounter
--- OUTSIDE RECORDS SUMMARY | 2024-11-23 10:45 | XMS_ITS | Encounter Summary ---
Author Organization [facility] Address [address] Sim: [place] [address] Care Team Providers Care Scene And Lighting Design Lecturer Name Role Phone Asael Barajas DO Primary Care Provider [phone] Encounter Details Date Type Department Care Team (Late Contact Info) Description 02/08/2024 External Device Data Initial Department [address] SIM: [place] [address] Demetrio Downing Md Social History Tobacco Use [...] (Late Contact Info) Description 12/15/2024 3:20 PM ACADEMIC ASSOCIATE Office Visit [facility] Spine and Pain Management [place] [address] [place] [address] Osman Wolfe MD 1390 [facility] 61 [facility] [address] [place] [address] documented as of this encounter Visit Diagnoses Not on filedocumented in this encounter Care Teams Scene And Lighting Design Lecturer Relationship Specialty Start Date End Date Asael Barajas DO 1390 [facility] 61 [facility] 1000 [place] [address] PCP - General Internal Medicine 10/01/23 08/09/24 documented as of this encounter
--- OUTSIDE RECORDS SUMMARY | 2024-11-23 10:45 | XMS_ITS | Encounter Summary ---
Author Organization [facility] Address [address] Sim: [place] [address] Care Team Providers Care Key Account Director Name Role Phone Asael Barajas DO Primary Care Provider [phone] Encounter Details Date Type Department Care Team [...] st Contact Info) Description 12/15/2024 3:20 PM ECHOCARDIOGRAPHY TECH Office Visit [facility] Spine and Pain Management [address] [place] [address] Osman Wolfe MD [address] [place] [address] [address] [place] [address] documented as of this encounter Visit Diagnoses Not on filedocumented in this encounter Care Teams Key Account Director Relationship Specialty Start Date End Date Asael Barajas DO [address] [place] [address] [place] [address] [place] [address] PCP - General Internal Medicine 10/01/23 08/09/24 documented as of this encounter
--- OUTSIDE RECORDS SUMMARY | 2024-11-23 10:45 | XMS_ITS | Encounter Summary ---
Author Organization [facility] Address [address] [place] [address] Care Team Providers Care Lan Analyst Name Role Phone Asael Barajas DO Primary [...] (Late Contact Info) Description 12/15/2024 3:20 PM MEDICAL IMAGING TECHNOLOGIST Office Visit [facility] Spine and Pain Management [address] [place] [phone] Osman Wolfe MD 1390 [facility] 61 [facility] [address] [place] [address] documented as of this encounter Visit Diagnoses Not on filedocumented in this encounter Care Teams Lan Analyst Relationship Specialty Start Date End Date Asael Barajas DO 1390 [facility] [address] [place] [address] [place] [phone] PCP - General Internal Medicine 10/01/23 08/09/24 documented as of this encounter
--- OUTSIDE RECORDS SUMMARY | 2024-11-23 10:45 | XMS_ITS | Encounter Summary ---
Author Organization [facility] Address [address] [place] [address] Care Team Providers Care Forging Die Finisher Name Role Phone Asael Barajas DO Primary Care Provider [phone] Reason for Visit * Reason Onset Date Comments ADVANCED REFILL REQUEST 04/03/2024 Encounter Details Date Type Department Care Team (Late st Contact Info) Description 04/03/2024 Telephone [facility] Office [address] [address], [facility] 1000 [place] [address] Asael Barajas DO 1400 [facility] [address] [facility] [address] [place] [address] ADVANCED REFILL REQUEST Social History [...] st Contact Info) Description 12/15/2024 3:20 PM PVC MONITOR Office Visit [facility] Spine and Pain Management [address] [place] [address] Osman Wolfe MD [address] [place], [place] [address], [place] [address] documented as of this encounter Visit Diagnoses Diagnosis Chronic bilateral low back pain with sciatica, sciatica laterality unspecified documented in this encounter Care Teams Forging Die Finisher Relationship Specialty Start Date End Date Asael Barajas DO [address] [place] [address] [address] [place] [address] PCP - General Internal Medicine 10/01/23 08/09/24 documented as of this encounter
--- OUTSIDE RECORDS SUMMARY | 2024-11-23 10:46 | XMS_ITS | Encounter Summary ---
Author Organization [facility] Address [address] [place] [address] Care Team Providers Care Clay Modeler Name Role Phone Unavailable Primary Care Provider Unavailabl e Reason for Visit * Reason Comments Leg Pain patient states legs have hurt since wednesday morning, states he has a tear in his lef hip . Encounter Details Date Type Department Care Team (Late st Contact Info) Description 07/19/2014 6:48 PM CDT - 07/19/2014 8:40 PM CDT Emergency [facility] Emergency Services [address] [address] Ruthann Ferris FNP NO ADDRESS ON FILE [...] sent through Care Everywhere. * LEG PAIN (UZBEK) documented in this encounter Medications at Time [...] history is provided by the patient. No director of the biophysics facility was used. The patient arrived by private [...] his left hip that was diagnosed at [facility]. Received a steroid injection in his left [...] Pt has a follow up appointment at [facility] on Jul 25, but would like referrals [...] st Contact Info) Description 12/15/2024 3:20 PM DENTAL SALES REPRESENTATIVE Office Visit [facility] Spine and Pain Management [place] [address] [place] [address] Osman Wolfe MD [address] [place] [phone] documented as of this encounter Visit Diagnoses [...]
--- OUTSIDE RECORDS SUMMARY | 2024-11-23 10:46 | XMS_ITS | Encounter Summary ---
Author Organization [facility] Address [address] [place] [address] Care Team Providers Care Colorer Name Role Phone Unavailable Primary Care Provider Unavailabl e Reason for Visit * Reason Comments Dizziness Encounter Details Date Type Department Care Team (Late st Contact Info) Description 08/13/2014 6:11 PM CDT - 08/13/2014 11:53 PM CDT Emergency [facility] Emergency Services [address] [phone] Chris Hays, [address] [address] Vertigo (Primary Dx); Mastoiditis of [...] be sent through Care Everywhere. * MASTOIDITIS (MALTESE) * VERTIGO (MALTESE) * SCIATICA (MALTESE) documented in this encounter Medications at Time [...] tonight. 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 He denies any new weakness tonight. He states since 07/16/14 he has not been able to walk without a walker due to burning sensation from his right hip radiating into his right leg. He notes he has been on chronic pain medications for 4 years for spinal arthritis and other orthopedic problems. He sees primary care doctor at [place] named Zachary De Souza. Duration: acute onset Timin Location: head Quality: room spinning tingling Modifying Factors: Nausea and Vomiting, feet tingling Associated signs & symptoms: Dizziness worse when standing and moving The history is provided by the patient. No chinese language professor was used. The patient arrived by EMS. [...] Interpreted: 1955 Rate: 84 BPM Rhythm: NSR [place]: LAD IST Segments: No acute ST or [...] st Contact Info) Description 12/15/2024 3:20 PM MEALS ON WHEELS DRIVER Office Visit [facility] [place] [address] [place] [address] Osman Wolfe MD [address] [place] [address] documented as [...] at 72 hours 08/19/2014 6:00 AM CDT [facility] FINAL MICRO REPORT No growth at 5 Days 08/19/2014 6:00 AM T [facility] Blood (Peripheral) Venipuncture - Floor Collect / Unknown 08/13/2014 8:30 PM CDT 08/13/2014 11:34 PM CDT Chris Hays DO MICROBIOLOGY - GENER AL ORDERABLES [id number] [address] [place] [address] * (ABNORMAL) BLOOD CULTURE (08/13/2014 8:00 PM CDT) PRELIMINARY MICRO REPORT Propionibacterium acnes isolated. (1 bottle out of 2) Susceptibility on request only.(A) 08/21/2014 12:26 PM CDT [facility] GRAM STAIN Gram Positive Rods seen (1 bottle out of 2) - Phoned report (with read back verified) to Zac Cotton ??([facility] reflab) ?? 08/19/14 7:40:17(A) 08/21/2014 12:26 PM CDT [facility] FINAL MICRO REPORT Propionibacterium acnes isolated. (1 bottle out of 2) Susceptibility on request only.(A) 08/21/2014 12:26 PM CDT [facility] Blood (Peripheral) Venipuncture - Floor Collect / Unknown 08/13/2014 8:00 PM CDT 08/13/2014 11:33 PM CDT Narrative [facility] LABORATORY SERVICES - [facility] - 08/21/2014 12:26 PM CDT Wait 5-15 minutes before obtaining the second set of blood cultures. Chris Hays DO MICROBIOLOGY - GENER AL ORDERABLES [facility] SERVICES - [facility] CLIA# [id number] [address] [place] [address] * XR CHEST PA OR AP (08/13/2014 [...] - 0.04 ng/mL 08/13/2014 6:55 PM CDT [facility] LABORATORY SERVICES [facility] Blood 08/13/2014 6:47 PM CDT 08/13/2014 6:55 PM CDT Narrative [facility] - 08/13/2014 6:55 PM CDT TROPONIN ? Normal ? 0.00-0.04 ng/mL Myocardical Injury ?? >0.04 ng/mL Interface Provider Poct POINT OF CARE TE STING Performing Organization Address [facility] de Phone Number [facility] CLIA # [id number] [address] [place] [address] * (ABNORMAL) SEDIMENTATION RATE (08/13/2014 6:45 PM CDT) ESR (SEDIMENTATION RATE) 34(H) 0 - 20 mm/Hr 08/13/2014 9:12 PM CDT [facility] Blood Venipuncture - Floor Collect / Unknown 08/13/2014 6:45 PM CDT 08/13/2014 6:53 PM CDT Chris Hays DO HEMATOLOGY ORDERABLE S Performing Organization Address [facility] de Phone Number [facility] CLIA # [id number] [address] [address] * SPECIMEN HOLD, BLUE TOP (08/13/2014 6:45 PM CDT) EXTRA TUBE RECEIVED Blue 08/13/2014 6:57 PM CDT [facility] Blood Venipuncture - Floor Collect / Unknown 08/13/2014 6:45 PM CDT 08/13/2014 6:53 PM CDT Protocol Leland Downing MD CHEMISTRY ORD ERABLES Performing Organization Address [facility] Co de Phone Number [facility] CLIA # [id number] [facility] [address] [place] [address] * SPECIMEN HOLD, BLOOD (08/13/2014 6:45 PM CDT) Pathologist [facility] EXTRA TUBE RECEIVED Red 08/13/2014 7:01 PM CDT [facility] Blood Venipuncture - Floor Collect / Unknown 08/13/2014 6:45 PM CDT 08/13/2014 6:53 PM CDT Chris Hays DO CHEMISTRY ORDERABLES [facility] CLIA # [id number] [facility] [address] [place] [address] * CKMB (08/13/2014 6:45 PM CDT) Pathologist [facility] CKMB 1.6 0.6 - 6.3 ng/mL 08/13/2014 7:36 PM CDT [facility] Blood Venipuncture - Floor Collect / Unknown 08/13/2014 6:45 PM CDT 08/13/2014 6:54 PM CDT Chris Hays DO CHEMISTRY ORDERABLES COM [facility] CLIA # [id number] [address] [place] [address] * CK (08/13/2014 6:45 PM CDT) Pathologist [facility] CK 93 49 - 397 U/L 08/13/2014 7:36 PM CDT [facility] Blood Venipuncture - Floor Collect / Unknown 08/13/2014 6:45 PM CDT 08/13/2014 6:54 PM CDT Chris Hays DO CHEMISTRY ORDERABLES [facility] CLIA # [id number] [facility] [address] [place] [address] * TROPONIN (08/13/2014 6:45 PM CDT) [facility] TROPONIN I 0.01 0.00 - 0.04 ng/mL 08/13/2014 7:36 PM CDT [facility] Blood Venipuncture - Floor Collect / Unknown 08/13/2014 6:45 PM CDT 08/13/2014 6:54 PM CDT Narrative [facility] LABORATORY [facility] - 08/13/2014 7:36 PM CDT TROPONIN ? Normal ? 0.00-0.04 ng/mL Myocardical Injury ?? >0.04 ng/mL Chris Hays DO CHEMISTRY ORDERABLES [facility] CLIA # [id number] [facility] [address] [place] [address] * (ABNORMAL) COMPREHENSIVE METABOLIC PANEL (08/13/2014 6:45 PM CDT) [facility] SODIUM 137 133 - 145 mmol/L 08/13/2014 7:36 PM T [facility] POTASSIUM 3.0(L) 3.3 - 5.3 mmol/L 08/13/2014 7:36 PM T [facility] LABORATORY [facility] CHLORIDE 99(L) 101 - 111 mmol/L 08/13/2014 7:36 PM T [facility] CO2 22(L) 23 - 34 mmol/L 08/13/2014 7:36 PM [facility] CALCIUM 10.7(H) 8.2 - 10.2 mg/dL 08/13/2014 7:36 PM [facility] BUN 21 5 - 25 mg/dL 08/13/2014 7:36 PM T [facility] LAB[facility]ATORY [facility] CREATININE 1.08 0.61 - 1.24 mg/dL 08/13/2014 7:36 PM [facility] GLUCOSE 150(H) 70 - 115 mg/dL 08/13/2014 7:36 PM [facility] TOTAL PROTEIN 8.9(H) 6.0 - 8.8 g/dL 08/13/2014 7:36 PM [facility] ALBUMIN 5.2 3.5 - 5.5 g/dL 08/13/2014 7:36 PM [facility] BILIRUBIN TOTAL 1.5(H) 0.1 - 1.0 mg/dL 08/13/2014 7:36 PM [facility] ALKALINE PHOSPHATASE 101 40 - 115 U/L 08/13/2014 7:36 PM [facility] AST 52(H) 13 - 45 U/L 08/13/2014 7:36 PM [facility] ALT 56 14 - 63 U/L 08/13/2014 7:36 PM [facility] GFR >60 >=60 mL/min/1.7 3 sq meter 08/13/2014 7:36 PM [facility] Comment: eGFR has not been validated for [...] mL/min/1.7 3 sq meter 08/13/2014 7:36 PM [facility] [place] ANION GAP 16(H) 5 - 15 08/13/2014 7:36 PM [facility] Blood Venipuncture - Floor Collect / Unknown 08/13/2014 6:45 PM CDT 08/13/2014 6:54 PM CDT Chris Hays DO CHEMISTRY ORDERABLES [facility] LAB[facility]ATORY SERVICES - [place] CLIA # [id number] [facility] [address] [place] [address] * (ABNORMAL) CBC WITH DIFFERENTIAL (08/13/2014 6:45 PM CDT) WBC 13.1(H) 4.0 - 11.0 K/uL 08/13/2014 6:58 PM CDT [facility] - [place] RBC 5.54 4.60 - 6.20 M/uL 08/13/2014 6:58 PM CDT [facility] [place] HEMOGLOBIN 17.8(H) 13.5 - 17.0 g/dL 08/13/2014 6:58 PM CDT [facility] [place] HEMATOCRIT 49.1 40.0 - 54.0 % 08/13/2014 6:58 PM CDT [facility] [place] MCV 88.6 80.0 - 98.0 fL 08/13/2014 6:58 PM CDT [facility] [place] MCH 32.1 26.0 - 34.0 pg 08/13/2014 6:58 PM CDT [facility] [place] MCHC 36.3 31.0 - 37.0 g/dL 08/13/2014 6:58 PM CDT [facility] [place] RDW 11.7 11.5 - 14.5 % 08/13/2014 6:58 PM CDT [facility] [place] RDW-STDEV 37.4 34.0 - 54.0 fL 08/13/2014 6:58 PM CDT [facility] [place] PLATELETS 250 150 - 400 K/uL 08/13/2014 6:58 PM CDT [facility] [place] MPV 10.3 8.5 - 12.5 fL 08/13/2014 6:58 PM CDT [facility] [place] NEUTROPHILS 55 50 - 70 % 08/13/2014 6:58 PM CDT [facility] [place] LYMPHOCYTES 34 20 - 40 % 08/13/2014 6:58 PM CDT [facility] [place] MONOCYTES 8 2 - 8 % 08/13/2014 6:58 PM CDT [facility] [place] EOSINOPHILS 3 1 - 3 % 08/13/2014 6:58 PM CDT [facility] - [place] BASOPHILS 1 0 - 1 % 08/13/2014 6:58 PM CDT [facility] - [place] NEUTROPHIL ABSOLUTE 7.14 1.80 - 7.70 K/uL 08/13/2014 6:58 PM CDT [facility] - [place] LYMPHOCYTE ABSOLUTE 4.46(H) 1.00 - 3.30 K/uL 08/13/2014 6:58 PM CDT [facility] - [place] MONOCYTE ABSOLUTE 1.03(H) 0.00 - 0.80 K/uL 08/13/2014 6:58 PM CDT [facility] - [place] EOSINOPHIL ABSOLUTE 0.32 0.00 - 0.45 K/uL 08/13/2014 6:58 PM CDT [facility] - [place] BASOPHILS ABSOLUTE 0.06 0.00 - 0.20 K/uL 08/13/2014 6:58 PM CDT [facility] [place] IMMATURE GRANULOCYTES 0 0 - 2 % 08/13/2014 6:58 PM CDT [facility] [place] IMMATURE GRANULOCYTES ABSOLUTE 0.05 0.00 - 0.31 K/uL 08/13/2014 6:58 PM CDT [facility] - [place] Blood Venipuncture - Floor Collect / Unknown 08/13/2014 6:45 PM CDT 08/13/2014 6:53 PM CDT Chris Hays DO HEMATOLOGY ORDERABLE S [facility] - [place] CLIA # [id number] [facility] [address] [place] [address] * (ABNORMAL) DRUG SCREEN, URINE (08/13/2014 6:44 PM CDT) Pathologist [facility] AMPHETAMINE QUAL, URINE Negative Negative 08/13/2014 7:09 PM CDT [facility] - [place] BARBITURATE QUAL, URINE Negative Negative 08/13/2014 7:09 PM CDT [facility] - [place] BENZODIAZEPINE QUAL, URINE Negative Negative 08/13/2014 7:09 PM CDT [facility] [place] COCAINE QUAL URINE Negative Negative 08/13/2014 7:09 PM CDT [facility] OPIATE QUAL, URINE Presumptive Positive(A) Negative 08/13/2014 7:09 PM [facility] CANNABINOIDS QUAL, URINE Negative Negative 08/13/2014 7:09 PM T [facility] PCP QUAL, URINE Negative Negative 4 7:09 PM [facility] CREATININE, URINE 259.7 40.0 - 278.0 mg/dL 08/13/2014 7:09 PM [facility] Urine, clean catch Collection / Unknown 08/13/2014 6:44 PM CDT 08/13/2014 6:51 PM CDT Narrative [facility] - 08/13/2014 7:09 PM [...] without delay. Chris Hays DO URINE ORDERABLES [facility] CLIA # [id number] [facility] [address] [place] [address] * (ABNORMAL) URINALYSIS WITH REFLEX CULTURE (08/13/2014 6:44 PM CDT) COLOR UA Yellow Pale to Dark Yellow 08/13/2014 7:09 PM [facility] [place] CLARITY UA Clear Clear 08/13/2014 7:09 PM T [facility] [place] SPECIFIC GRAVITY UA 1.026 1.003 - 1.035 08/13/2014 7:09 PM [facility] [place] PH UA 6.0 5.0 - 8.0 08/13/2014 7:09 PM [facility] [place] LEUKOCYTE ESTERASE UA Negative Negative 08/13/2014 7:09 PM [facility] [place] NITRITE UA Negative Negative 08/13/2014 7:09 PM [facility] [place] PROTEIN UA Negative Negative 08/13/2014 7:09 PM [facility] [place] GLUCOSE UA Negative Negative 08/13/2014 7:09 PM [facility] [place] KETONES UA 5 mg/dL(A) Negative 08/13/2014 7:09 PM [facility] [place] UROBILINOGEN UA 0.2 <2.0 mg/dL 4 7:09 PM [facility] [place] BILIRUBIN UA Negative Negative 08/13/2014 7:09 PM [facility] [place] BLOOD UA Negative Negative 08/13/2014 7:09 PM [facility] [place] WBC UA 0-2 0 - 2 /hpf 08/13/2014 7:09 PM [facility] [place] RBC UA 3-5(A) 0 - 2 /hpf 08/13/2014 7:09 PM [facility] [employer] [facility] [place] BACTERIA UA Negative Negative /hpf 08/13/2014 7:09 PM [facility] [employer] [facility] [place] EPITHELIAL CELLS, URINE 0-5 0 - 5 /hpf 08/13/2014 7:09 PM [facility] [place] HYALINE CAST 3-5(A) None Seen, 0-2 /lpf 08/13/2014 7:09 PM [facility] [place] Urine, clean catch Collection / Unknown 08/13/2014 6:44 PM CDT 08/13/2014 6:51 PM CDT Chris Hays DO URINE ORDERABLES [facility] [place] MARTINEZ # [id number] [address] [place] [address] * EKG 12-LEAD (08/13/2014 6:29 PM CDT) 08/13/2014 6:29 PM CDT Narrative INTERFACE SYSTEM - 08/14/2014 4:51 PM CDT ? Stationary ECG Study ? [facility] ? Test Date: ?08/13/2014 6:29:25 PM ? Pat Name: ? Edilberto Hawley ? Department: ?? 2000 ? Room: ? ED07 ED07 ? Gender: ? M ?Scrub Wheel Operator: ?? mleon ? : ?1955 ? Requested by: ? Order Number: [id number] ?Reading MD: ?? Kemal Roukoz ? Intervals ?[place] ? Rate: ? 84 ? P: ?16 ? MS: ? 156 ?QRS: ?-27 ? QRSD: ? [...] Collazo MD - 08/14/2014 Stationary ECG Study [place] [facility] Test Date: 08/13/2014 6:29:25 PM Pat Name: Edilberto Hawley Department: 1999 Room: [place] [address] Gender: M Scrub Wheel Operator: marc : 1955 Requested by: Order Number: [id number] Reading MD: Kemal Collazo Intervals [place] Rate: 84 P: 16 MS: 156 QRS: -27 QRSD: 96 T: 29 [...]
--- OUTSIDE RECORDS SUMMARY | 2024-11-23 10:46 | XMS_ITS | Encounter Summary ---
Author Organization [facility] Address [address] [place] [address] Care Team Providers Care Building Cleaner Name Role Phone Asael Barajas DO Primary Care Provider Reason for Visit * Reason Onset Date Comments Medication Refill 11/09/2023 Encounter Details Date Type Department Care Team (Late st Contact Info) Description 11/09/2023 Refill [facility] [place] [facility] [address] [address], [address] [place] [address] Asael Barajas DO [address] [facility] [place] [address] HTN (hypertension), benign (Primary Dx); [...] mouth 3 times daily. Refill Preferred Pharmacy: [id number] - [place] [address] [address] [facility] [place]. Date of last encounter: 10/01/2023 Next Appointment: 03/31/2024 Asael Barajas DO Patient Contact Information: Home Phone Work Phone LLIGENCE SPECIALIST documented in this encounter Plan of Treatment Upcoming Encounters Date Type Department Care Team (Late st Contact Info) Description 12/15/2024 3:20 PM INTELLIGENCE SPECIALIST Office Visit [facility] [address] [place], [place] [address], [place] [address] Osman Wolfe MD [address] [place] [address] documented as of this encounter Visit Diagnoses Diagnosis HTN (hypertension), benign- Primary Essential hypertension, benign Chronic bilateral low back pain with sciatica, sciatica laterality unspecified documented in this encounter Care Teams Building Cleaner Relationship Specialty Start Date End Date Asael Barajas DO [address] [place] [address] [address] [place] [address] PCP - General Internal Medicine 10/01/23 08/09/24 documented as of this encounter
--- OUTSIDE RECORDS SUMMARY | 2024-11-23 10:46 | XMS_ITS | Encounter Summary ---
Author Organization [facility] Address [address] [place] [address] Care Team Providers Care Tempering Kiln Tender Name Role Phone Asael Barajas Primary Care Provider Reason for Visit * Reason Onset Date Comments Wants Appt 10/05/2023 Encounter Details Date Type Department Care Team (Late st Contact Info) Description 10/05/2023 Telephone [facility] Spine and Pain Management [address] [address] Mc Zavala MD [address] [place] [address] Wants Appt Social History Tobacco Use [...] 1:11 PM CST NEW PATIENT SCREENING ENCOUNTER [facility] Referral Diagnosis/Chief Complaint: neck/LUE pain How long has pain been present? Since 2009 Insurance: [facility] Medicare Have you seen previous pain management in the last 2-3 years? Yes, if yes which provider: [address] [place] [address] Spine and Joint( [facility] ) TPI's 05/15/21 Cevical Inj-07/03/21,08/27/21 We are a non-opioid prescribing pain practice. We do not prescribe, nor take over any other physicians??? prescriptions for opioids. We also do not handle ANY permanent disability requests. Would youstill like to proceed? Yes This practice does NOT complete any Short Term Disability or Jail Disability requests. Is thisgoing to be an issue for you? no Have the patient been seen by our providers in past? No Is patient established with a PCP? Yes If NO, will need to establish care with PCP prior to scheduling. Is patient a diabetic? No Any previous imaging related to reason being seen outside of [facility]? No Is this a MVA or work/personal injury case? No Is this in active litigation? No What location would they like to be seen for consult? [facility] [place] Have you completed 4-6 weeks of conservative treatment (PT, Physician directed HEP, Chiropractor, etc) for this condition in the last year? No Patient will contact [facility] in [facility] to have them place all images pertaining to the Neck, shoulder and back on a disk. Patient given our address and advised patient once disk received we will call and schedule NPC. Patient voiced understanding. EN PRINTING INSPECTOR documented in this encounter Plan of Treatment Upcoming Encounters Date Type Department Care Team (Late st Contact Info) Description 12/15/2024 3:20 PM SCREEN PRINTING INSPECTOR Office Visit [facility] Spine and Pain Management [place] [address] [place] [phone] Osman Wolfe MD [address] [place] [phone] documented as of this encounter Visit Diagnoses Not on filedocumented in this encounter Care Teams Tempering Kiln Tender Relationship Specialty Start Date End Date Asael Barajas DO [address] [employer] [place] [phone] PCP - General Internal Medicine 10/01/23 08/09/24 documented as of this encounter
--- OUTSIDE RECORDS SUMMARY | 2024-11-23 10:46 | XMS_ITS | Encounter Summary ---
[facility] Address [address] [place] [address] Care Team Providers Care Port Purser Name Role Phone Asael Barajas DO Primary Care Provider Reason for Referral * Eval and Treat (Routine) - Closed Specialty Diagnoses / Procedures Referred By Celine almaguer Referred To Contact Pain Management Diagnoses Left wrist pain Procedures AK OFFICE/OUTPATIENT ESTABLISHED MOD MDM 30-39 MIN [place] OFFICE/OUTPATIENT NEW MODERATE MDM 45-59 MINUTES Asael Barajas DO [address] [place] [address] Referral ID Status Reason Start Date Expiration Date Visits Re quested Visits Authorized [id number] Closed 10/01/2023 09/30/2024 1 1 [employer] Reason for Visit * Reason Comments Establish Care Annual Wellness Visit (Medicare) Encounter Details Date Type Department Care Team (Late st Contact Info) Description 10/01/2023 11:00 AM OIL [employer]NEY[employer] Office Visit [facility] [address] [address], [facility] [address] [place] [address] Asael Barajas DO [address] [place] [address] HTN (hypertension), benign (Primary Dx); [...] Comments Blood Pressure 125/81 10/01/2023 11:01 AM [employer]IL [employer] Pulse 71 10/01/2023 11:01 AM [employer]IL [employer] Temperature 36.4 ??C (97.5 ??F) 10/01/2023 11:[address] Respiratory Rate 16 10/01/2023 11:01 AM OIL [employer]NEY[employer] Oxygen Saturation 100% 10/01/2023 11:01 AM OIL [employer] Inhaled Oxygen Concentration - - Weight 85.7 kg (189 lb) 10/01/2023 11:01 AM [employer]IL [employer] Height 180.3 cm (5' 11 ) 10/01/2023 11:01 AM OIL [employer] Body Mass Index 26.36 10/01/2023 11:01 AM OIL [employer]NEY[employer] documented in this encounter Progress Notes * [...] No BLE edema Asael Barajas DO 10/01/2023 [facility] - [address] [address] Portions of this encounter may have been generated with Pb Naturally Speaking and could containinadvertent errors. Every effort has been made to proof read and avoid such errors. [employer] documented in this encounter Miscellaneous Notes * Patient Instructions - Asael Barajas DO - 10/01/2023 11:38 AM OIL [employer]OURNEY[employer] Contact Referral Center: [phone] --pain management [employer]NER JOURNEY[employer] documented in this encounter Plan of Treatment Upcoming Encounters Date Type Department Care Team (Late st Contact Info) Description 12/15/2024 3:20 PM OIL [employer] JOURNEY[employer] Office Visit [facility] [address] [place] [address] Osman Wolfe MD [address] [place] [address] Scheduled Referrals Name Type Priority Associated [...] forearm documented in this encounter Care Teams Port Purser Relationship Specialty Start Date End Date Asael Barajas DO [facility] [address] [place] [phone] PCP - General Internal Medicine 10/01/23 08/09/24 documented as of this encounter
== END 2024-11-16 10:44 | disposition home or self-care (01) ==
PROVIDERS: Emergency Provider Student in an Organized Health Care Education/Training Program
DX: S72.401A Unspecified fracture of lower end of right femur, initial encounter for closed fracture (principal); S83.411A Sprain of medial collateral ligament of right knee, initial encounter; M25.461 Effusion, right knee; M17.11 Unilateral primary osteoarthritis, right knee; Z87.891 Personal history of nicotine dependence; X58.XXXA Exposure to other specified factors, initial encounter; Y93.01 Activity, walking, marching and hiking
CPT/HCPCS: 73564; 96372; 99283; 99284; A9270; J1885